=== PATIENT | female | born 1940 | race Caucasian/White ===

== ENCOUNTER 2023-05-24 12:58 | Outpatient (OUT) | payer OTHER, SELFPAY ==
--- NOTE | 2023-05-24 13:06 | XR_ITS ---
[address] [address] Patient Name: AUSTIN GOLDEN MRN: [id number] date: 1940 Sex: F Assigned Patient Location: [facility] Current Patient Location: RAD Accession/Order Number: [id number] Exam Date: 05/24/2023 13:20 Report Date: 05/24/2023 17:19 At the request of: JAZMIN العلي Procedure: XR DEXA axial skeleton EXAMINATION: XR DEXA axial skeleton, 05/24/2023 1:20 PM EDT HISTORY: Menopause Z78.0 COMPARISON: 2016, 2014, 2012, 2008, 2004 TECHNIQUE: Dual-energy X-ray absorptiometry (DEXA) bone density study performed for the axial skeleton. HISTORY: Menopause Z78.0 FINDINGS: Bone mineral density of the AP spine L1-L4 measures 1.2436 g/sq cm. T score 0.5. WHO classification: Normal. Lowest bone mineral density in the right femoral neck measures 0.741 g/sq cm. T score -2.1. WHO classification: Osteopenia XR/XR DEXA axial skeleton IMPRESSION: Osteopenia. Moderate fracture risk Electronically authenticated by: HARDY SERNA Date: 05/24/2023 17:19
== END 2023-05-24 12:59 | disposition home or self-care (01) ==
LOC: RAD 12:58
PROVIDERS: PCP Internal Medicine; Visit Provider Internal Medicine
DX: Z78.0 Asymptomatic menopausal state (principal); M85.88 Other specified disorders of bone density and structure, other site
CPT/HCPCS: 77080

== ENCOUNTER 2023-10-15 09:10 | Outpatient (OUT) | payer OTHER, SELFPAY ==
--- NOTE | 2023-10-15 11:33 | P.CN_ITS ---
Consult Note: HPI Data of Consult Patient: new to practice Consult date: 10/15/23 Requesting Physician: Yesica Astudillo MD Primary Care Provider: Chester Mehta, Consult Narrative Reason for consult: Low back pain, bilateral leg pain Narrative: 83yof who presents for evaluation. Longstanding low back pain with weakness into bilateral legs for many years, now worsening in past several months. Denies provoking event. Currently utilizes [place], which helps mildly. Cannot take NSAIDs because of blood thinner. Has engaged in >6 weeks of provider directed home exercise program, with little benefit. No recent MRI available for review. cc:: CC: Yesica Astudillo MD Review of Systems ROS Status of ROS 10 or more systems reviewed and unremark able except as noted in history and below Exam Narrative Exam Narrative: Psych-alert and oriented x 3. Attentive and appropriate, constitutionally normal, displays normal mood and affect per situation. There are no obvious deficits in memory, reasoning, or intellect.? Skin-no obvious rashes, bruising, erythema noted to the patient's area of pain.? Extremities- extremities are warm with minimal edema and palpable pulses. Lumbar-tenderness to palpation noted in the lumbar spine and paraspinal musculature. Pain is elicited with flexion, extension, and lateral rotation of the lumbar spine. Range of motion is diminished with these motions. Facet loading maneuvers are positive. Strength-noted to be unremarkable with the exception of decreased strength rated at 4 out of 5 in bilateral quadriceps femoris, anterior tibialis. Sensory-no notable sensory deficits in the bilateral lower extremities to touch or pinprick in all dermatomal distributions with the exception to decreased sensation to the bilateral L4, 5 dermatomal distribution Coordination remains intact.? Gait remains non-antalgic. Assessment and Plan Assessment and Plan (1) Lumbar stenosis with neurogenic claudication: (2) Lumbar spondylosis: Plan 83yof who presents for evaluation. Failed conservative measures, as noted. Previously underwent interventional procedures with benefit, but has been several years. Given no advanced imaging recently, coupled with failure to respond to >6 weeks of conservative measures, would like her to undergo lumbar MRI without contrast, as well as XR sacrum. She is in agreement. Medications reviewed. Will continue norco from PCP, i will add flexeril 5mg bid prn. She expressed understanding. Follow up after imaging.
== END 2023-10-15 09:11 | disposition home or self-care (01) ==
PROVIDERS: PCP Internal Medicine; Visit Provider Anesthesiology
DX: M48.08 Spinal stenosis, sacral and sacrococcygeal region (principal); M48.062 Spinal stenosis, lumbar region with neurogenic claudication; M47.816 Spondylosis without myelopathy or radiculopathy, lumbar region
CPT/HCPCS: 72220; G0463

== ENCOUNTER 2023-10-15 11:44 | Outpatient (OUT) | payer OTHER, SELFPAY ==
--- NOTE | 2023-10-15 11:53 | XR_ITS ---
The [address] [address] Patient Name: AUSTIN GOLDEN MRN: [id number] date: 1940 Sex: F Assigned Patient Location: [facility] Current Patient Location: Accession/Order Number: [id number] Exam Date: 10/15/2023 11:58 Report Date: 10/16/2023 07:55 At the request of: ANDRIUS GIEDRAITIS Procedure: XR sacrum coccyx min 2V PROCEDURE: XR sacrum coccyx min 2V COMPARISON: None. HISTORY: Lumbar Sacral Stenosis FINDINGS: SACRUM: No fracture, disruption of the sacral ala line, or cortical irregularity. COCCYX: No fracture or suspicious alignment. SOFT TISSUES: No widening of the sacroiliac joints. No radiopaque foreign body. OTHER: Severe degenerative changes of the visualized lumbar spine with disc collapse with vacuum disc and endplate sclerosis and facet osteoarthropathy. Suspected L5 foraminal stenosis XR/XR sacrum coccyx min 2V IMPRESSION: Severe degenerative changes of the lumbar spine. Consider dedicated lumbar x-rays Electronically authenticated by: HARDY SERNA Date: 10/16/2023 07:55
== END 2023-10-15 11:45 | disposition home or self-care (01) ==
LOC: RAD 11:49
PROVIDERS: PCP Internal Medicine; Visit Provider Anesthesiology
DX: M48.061 Spinal stenosis, lumbar region without neurogenic claudication (principal); M48.08 Spinal stenosis, sacral and sacrococcygeal region
CPT/HCPCS: 72220

== ENCOUNTER 2023-11-28 11:00 | Outpatient (OUT) | payer OTHER, SELFPAY ==
--- NOTE | 2023-11-28 12:17 | PM.CN ---
Consult Note: HPI Data of Consult Patient: known to practice within the last 3 years Consult date: 10/15/23 Requesting Physician: Velvet Jimenez NP Primary Care Provider: Chester Mehta DO Consult Narrative Reason for consult: Low back pain, bilateral leg pain Narrative: 83yof who presents for evaluation. Longstanding low back pain with weakness into bilateral legs for many years, now worsening in past several months. Denies provoking event. Currently utilizes [place], which helps mildly. Cannot take NSAIDs because of blood thinner. Has engaged in >6 weeks of provider directed home exercise program, with little benefit. Most recent MRI showing multilevel DDD, lumbar facet arthropathy, and neuoroforaminal stenosis. cc:: CC: Velvet Jimenez NP Review of Systems ROS Status of ROS 10 or more systems reviewed and unremarkable except as noted in history and below Musculoskeletal Reports: back pain Meds Home Medications and Allergies Home Medications ?Medication ?Instructions ?Recorded ?Confirmed ?Type acetaminophen 325 mg capsule 325 mg PO Q6H PRN pain 10/15/23 10/15/23 History (Tylenol) atorvastatin 40 mg tablet 40 mg PO DAILY 10/15/23 10/15/23 History calcium 600 mg capsule 600 mg PO QDAY 10/15/23 10/15/23 History cholecalciferol (vitamin D3) 125 125 mcg PO DAILY 10/15/23 10/15/23 History mcg (5,000 unit) tablet (Vitamin D3) cyclobenzaprine 5 mg tablet 5 mg PO BID 10/15/23 10/15/23 History diltiazem HCl 120 mg capsule,24 120 mg PO DAILY 10/15/23 10/15/23 History hr,extended release hydrocodone 10 mg-acetaminophen 1 tab PO DAILY PRN pain 10/15/23 10/15/23 History 325 mg tablet rivaroxaban 15 mg tablet (Xarelto) 15 mg PO QPM 10/15/23 10/15/23 History ropinirole 1 mg tablet 1 mg PO .HS 10/15/23 10/15/23 History sotalol 80 mg tablet (Betapace) 80 mg PO BID 10/15/23 10/15/23 History Exam Narrative Exam Narrative: Psych-alert and oriented x 3. Attentive and appropriate, constitutionally normal, displays normal mood and affect per situation. There are no obvious deficits in memory, reasoning, or intellect.? Skin-no obvious rashes, bruising, erythema noted to the patient's area of pain.? Extremities- extremities are warm with minimal edema and palpable pulses. Lumbar-tenderness to palpation noted in the lumbar spine and paraspinal musculature. Pain is elicited with flexion, extension, and lateral rotation of the lumbar spine. Range of motion is diminished with these motions. Facet loading maneuvers are positive. Strength-noted to be unremarkable with the exception of decreased strength rated at 4 out of 5 in bilateral quadriceps femoris, anterior tibialis. Sensory-no notable sensory deficits in the bilateral lower extremities to touch or pinprick in all dermatomal distributions with the exception to decreased sensation to the bilateral L4, 5, l5,S1 dermatomal distribution Coordination remains intact.? Gait remains non-antalgic. Constitutional Documenting provider has reviewed patient's vital signs: yes Common normals: no apparent distress, oriented x3, healthy appearing, alert and well nourished General appearance: cooperative HENMT Common normals: normocephalic, hearing grossly normal bilaterally and moist oral mucous membranes Head and scalp: normocephalic Eye Common normals: PERRL Pupil: PERRL Neck & C-Spine Common normals: full ROM General: normal visual inspection Chest Common normals: inspection of chest normal Respiratory Common normals: normal respiratory effort, no retractions and no use of accessory muscles Neuro Common normals: oriented x3, CN's II-XII intact bilaterally, moves all extremities, no focal motor deficits, no sensory deficits noted and deep tendon reflexes 2+ bilaterally Sensorium/orientation: alert Motor exam: strength 5/5 throughout and no movement abnormalities noted Psych Common normals: mental status grossly normal, thought process normal, cooperative, affect normal, speech normal and activity/motor behavior normal Speech: normal speech Thought process: normal thought process Results Additional Findings Additional findings: If on a controlled substance or opioids, I have checked an [place] report on this patient and there are no aberrancies noted in the prescribing history.??If on a controlled substance or opioid a drug screen was completed and reviewed within the last year, and if there has not been a drug screen completed we ordered one today to monitor higher risk, state monitored pain medication use. As part of providing excellent, safe, comprehensive care, the following was completed at our patient's visit: 1. A medication reconciliation and review to ensure accurate knowledge of current/active medications, including asking our patients to inform us about any [id number] medications or herbal remedies/nutritional supplements/alternative remedies. 2. A review to specifically ensure our patients have had annual screening for screening for depression, screening for tobacco use, and screening for unhealthy alcohol use. For concerning screenings had a discussion with the patient, provided patient education, and recommended follow-up with primary care provider when appropriate. If patient noted with a risk of falling, they received education on strength, gait, and balance training to prevent future risk of falling. Assessment and Plan Assessment and Plan (1) Lumbar stenosis with neurogenic claudication: Assessment and Plan: The patient has had over 3 months of moderate to severe low back pain with functional impairment and inadequate response to conservative care including NSAIDS (unless there are contraindication such as concurrent blood thinners), multiple oral or topical pain medications, and home exercise program/physical therapy.? Patient has completed >6 weeks of guided home exercise program and/or formal physical therapy program without relief of their symptoms.? I have reviewed the imaging of the lumbar spine and no red flags were identified.? The imaging reveals radiographic findings consistent with lumbar DDD, lumbar facet arthropathy, lumbar stenosis with NC We discussed the risks and benefits of the procedure with the patient, and we are NOT planning on using sedation as outlined in the guidelines from Medicare unless there is a documented reason that sedation would be strongly recommended.?? The procedure will be completed with fluoroscopic guidance.? (2) Lumbar spondylosis: (3) Sacroiliitis: Assessment and Plan: consider bilateral SI nerve blocks in the future based on physical exam Plan bilateral L4-5 TFESI under fluoroscopy followed by bilateral L5-S1 TFESI under fluoroscopy for lumbar stenosis with NC, foraminal stenosis noted on MRI, chronic pain unresponsive to PT/HEP and medication regimen continue current medications as tolerated f/u 2 weeks after completion of injections
== END 2023-11-28 11:01 | disposition home or self-care (01) ==
LOC: PM 12-04 09:44
PROVIDERS: PCP Internal Medicine; Visit Provider Nurse Practitioner
DX: M48.062 Spinal stenosis, lumbar region with neurogenic claudication (principal); M47.816 Spondylosis without myelopathy or radiculopathy, lumbar region; M46.1 Sacroiliitis, not elsewhere classified
CPT/HCPCS: G0463

== ENCOUNTER 2023-12-17 07:03 | Day surgery (SDC) | payer OTHER, SELFPAY ==
--- OUTSIDE RECORDS SUMMARY | 2023-12-17 07:08 | XMS_ITS | CCD ---
Author Organization [facility] Care Team Providers Care [employer] Helper Name Role Phone CHESTER العلي Primary Care Unavailable WOO, JELANI Attending Unavailable WOO, JELANI Admitting Unavailable SELF, REFERRED Referring Unavailable [place] Procedure Practitioner Unavailab SANJUANA Maier AM Surgeon Unavailable TANNER HERRERA Surgeon Unavailable [place] Procedure Practitioner Unavailab shant SORIA, JELANI Surgeon Unavailable [place] Procedure Practitioner Unavailab le Chester العلي Unavailable Unavailable Unavailable DO Chester العلي Primary Care Provider MD Debbie Mac Attending Provider John Mims Unavailable [phone] DO Chester العلي Primary Care Provider MD John Mims Attending Provider MD Debbie Mac Attending Provider MD John Mims Referring Provider DO Chester العلي Primary Care Provider MD Debbie Mac Attending Provider DO Chester العلي Primary Care Provider MD Debbie Mac Attending Provider DO Luis Lennon Emergency Provider DO Jay Ceja Admit Provider DO Jay Ceja Attending Provider MD Anival Easton Attending Provider DO Chester العلي Primary Care Provider MD Debbie Mac Attending Provider VINCENT Rolon Emergency Provider DO Jay Ceja Attending Provider ROSA Bennett Other Provider Unavailable DO Javed Dee Other Provider MD Jimena Smith Other Provider MD Christopher Richardson Other Provider MD Debbie Mac Referring Provider MD Kenny Porter Other Provider VIRGINIA Brooke Other Provider MD Bety Haile Other Provider MD Vicente [facility] Other Provider MD Isra Pedro Other Provider Barby [facility] Cristiana Rosen Other Provider MD Yessy Ackerman Other Provider DO Sam Dukes Attending Provider Chester العلي Unavailable DO Chester العلي Primary Care Provider DO Luis Lennon Emergency Provider Unavailab DO Jay Milligan Admit Provider [phone] MD Anival Easton Attending Provider [phone] VINCENT Rolon Emergency Provider [phone] ROSA Bennett Other Provider Unavailable DO Javed Dee Other Provider MD Jimena Smith Other Provider MD Christopher Richardson Other Provider MD Debbie Mca Referring Provider MD Kenny Porter Other Provider VIRGINIA Brooke Other Provider MD Bety Haile Other Provider MD Anoop Zhang Other Provider MD Isra Pedro Other Provider Barby [facility]- Cristiana Rosen Other Provider MD Yessy Ackerman Other Provider [phone] DO Sam Dukes Attending Provider DO Chester العلي Attending Provider Rachel Larios Unavailable DO Wilbur Watson Attending Provider DO Chester العلي Primary Care Provider DO Jay Ceja Admit Provider MD Debbie Mac Attending Provider Tyson, Dr. Chester Sanders Referring Aleshia العلي, Dr. Chester Sanders Primary Care Aleshia Burtonuda, Dr. French Carrillo Attending Un available BALL, DR BRIGGS Primary Care Unavailable MARKER ., DR MCMANUS Admitting Unavailable MARKER ., DR MCMANUS Attending Unavailable MARKER ., DR MCMANUS Consulting Unavailable UNLU, LUCIEN Consulting Unavailable FELICITA, DR Wolf Dyson Admitting Unavailable BALL, DR BRIGGS Primary Care Unavailable FELICITA, DR Wolf Dyson Attending Unavailable FELICITA, DR Wolf Dyson Consulting Unavailable WEST, DR HARDY Pisano Consulting Unavailable BALL, DR BRIGGS Admitting Unavailable BALL, DR BRIGGS Attending Unavailable BALL, DR BRIGGS Consulting Unavailable BALL, DR BRIGGS Primary Care Unavailable MEHTA, MACARENA Consulting Unavailable BALL, DR BRIGGS Admitting Unavailable BALL, DR BRIGGS Primary Care Unavailable BALL, DR BRIGGS Attending Unavailable BALL, DR BRIGGS Consulting Unavailable NEFCY, ARI Consulting Unavailable BALL, DR BRIGGS Admitting Unavailable BALL, DR BRIGGS Attending Unavailable BALL, DR BRIGGS Consulting Unavailable BALL, DR BRIGGS Primary Care Unavailable WEST, DR HARDY Pisano Consulting Unavailable BALL, DR BRIGGS Primary Care Unavailable FELICITA, DR Wolf Dyson Admitting Unavailable FELICITA, DR Wolf Dyson Attending Unavailable FELICITA, DR Wolf Dyson Consulting Unavailable POLICARO, FARRAH Consulting Damien LARIOS, DR RACHEL Hahn Admitting Unavailable BALL, DR BRIGGS Primary Care Unavailable LARIOS, DR RACHEL Hahn Attending Unavailable LARIOS, DR RACHEL Hahn Consulting Unavailable Tyson, DO Briggs Primary Care Provider [phone] DO Wilbur Watson Attending Provider Jose, Dr. Cehn Referring Unavaila ble Traboulmichael, Dr. Chen Attending Unavaila ble Tyson, Dr. Chester Sanders Primary Care Unavai lable Jose, Dr. Chen Referring Unavaila ble Ball, Dr. Chester Sanders Primary Care Yasmeenvai labshant Mac, Dr. Chen Attending Unavaila ble Trabnuria, Dr. Chen Referring Unavaila ble MITCHELL, MD MAXWELL MOSS Attending Unavailabl e Tyson, Dr. Chester Sanders Primary Care Aleshia العلي, Dr. Chester Sanders Primary Care Aleshia Smith, Dr. Jimena Reynolds Attending Yasmeen vailable Smith, Dr. Jimena Reynolds Attending Yasmeen vailable Tyson, Dr. Chester Sanders [facility] Aleshia Smith, Dr. Jimena Reynolds Attending Yasmeen vailaanselmo العلي, Dr. Chester Sanders Primary Care Yasmeenvakrysten العلي, Dr. Chester Sanders Primary Care Yasmeenvai labshant العلي, Dr. Chester Sanders Primary [facility] Yasmeenvai labshant Mac, Dr. Chen Attending Unavaila ble Trabnuria, Dr. Chen Referring Unavaila ble Tyson, Dr. Chester Sanders Primary Care Unavai labshant العلي, Dr. Chester Sanders Primary [facility] Unavai labshant Mac, Dr. Chen Attending Unavaila anselmo العلي, Dr. Chester Sanders Primary Care Aleshia العلي, Dr. Chester Sanders Primary [facility] Yasmeenvai richie Mac, Dr. Chen Attending Unavaila anselmo العلي, Dr. Chester Sanders Primary Care Aleshia العلي, Dr. Chester Sanders Primary [facility] Aleshia Smith, Dr. Jimena Reynolds Attending Yasmeen vailaanselmo العلي, Dr. Chester Sanders Primary [facility] Aleshia Smith, Dr. Jimena Reynolds Attending Yasmeen vailable Ball, Dr. Chester Sanders Primary [facility] Unavai lable Ball, Dr. Chester Sanders [facility] Unavai lable Traboultellyi, Dr. Chen Attending Unavaila ble Ball, Dr. Chester Sanders [facility] Unavai lable Traboulssi, Dr. Chen Attending Unavaila ble Ball, Dr. Chester Sanders [facility] Unavai lable Traboulssi, Dr. Chen Attending Unavaila ble Ball, Dr. Chester Sanders [facility] Unavai lable Traboulssi, Dr. Chen Attending Unavaila ble Ball, Dr. Chester Sanders [facility] Unavai lable Traboulssi, Dr. Chen Attending Unavaila ble Traboulssi, Dr. Chen Referring Unavaila ble Ball, Dr. Chester Sanders [facility] Unavai lable Traboulssi, Dr. Chen Attending Unavaila ble Ball, Dr. Chester Sanders [facility] Unavai lable Traboulssi, Dr. Chen Attending Unavaila ble Traboulssi, Dr. Chen Referring Unavaila ble Traboulssi, Dr. Chen Referring Unavaila ble Ball, Dr. Chester Sanders [facility] Unavai lable Traboulssi, Dr. Chen Attending Unavaila ble Traboulssi, Dr. Chen Referring Unavaila ble Ball, Dr. Chester Sanders [facility] Unavai lable Traboultellyi, Dr. Chen Attending Unavaila ble Ball, DO Chester Primary Care Provider [phone] MD Debbie Mca Attending Provider Chester العلي DO Primary Care Provider Sabina Garcia Unavailable Chester العلي DO Primary Care Provider DEBBIE MAC Referring Unavailable CHESTER العلي Primary Care Unavailable Tyson DO Chester Primary Care Provider MD Debbie Mac Attending Provider Chester العلي DO Primary Care Provider Jose MUIR, Ivyf Unavailable [phone] Yesica Astudillo MD Attending Unavailable DO Tyson Chester Primary Care Provider MD Debbie Mac Attending Provider MD Yesica Astudillo Attending Provider MD Christopher Richardson Attending Provider TRABOULSSI, MOURHAF Attending Unavailable BALL, CHESTER E Primary Care Unavailable TRABOULSSI, MOURHAF Attending Unavailable TRABOULSSI, MOURHAF Referring Unavailable BALL, CHESTER E Primary Care Unavailable TRABOULSSI, MOCHEMOHAF Attending Unavailable TRABOULSSI, MOURHAF Referring Unavailable BALL, CHESTER E Primary Care Unavailable Traboulssi, Mourhaf Admitting Unavailable Ball, Chester Primary Care Unavailable Traboulssi, Moollief Attending Unavailable Traboulssi, Debbie Attending Unavailable Ball, Chester Primary Care Unavailable Traboulssi, Mochemohaf Admitting Unavailable Traboulssi, Ivyf Attending Unavailable Ball, Chester Primary Care Unavailable Traboulssi, Mourhaf Admitting Unavailable Traboulssi, Moollief Attending Unavailable Traboulssi, Mourhaf Admitting Unavailable Ball, Chester Primary Care Unavailable Ball, Chester Primary Care Unavailable Giedraitis, Andrius Admitting Unavailable Giedraitis, Andrius Attending Unavailable Christopher Richardson Attending Unavail able Ball, Chester Primary Care Unavailable Christopher Richardson Admitting Unavail able Traboulssi, Mochemohaf Admitting Unavailable Ball, Chester Primary Care Unavailable Traboulssi, Ivyf Attending Unavailable LafWilbur whaley Admitting Unavailable LaffaWilbur argueta Attending Unavailable Ball, Chester Primary Care Unavailable Lafjudd Wilbur Admitting Unavailable Laffay Wilbur Attending Unavailable Ball, Chester Primary Care Unavailable Allergies Allergy Classification Reported Allergen(s) Allergy Type Date of Onset Reaction(s) Facility (1 source) apixaban Drug Allergy 07-26-20 20 The [facility] Repository (20 sources) Sulfonamides (Antibiotic); Translations: [SULFA (SULFONAMIDE ANTIBIOTICS)] Drug allergy (disorder) 07-29-20 13 Itching [facility] Repository (20 sources) Sulfonamides (Antibiotic); Translations: [Sulfa Drugs] Allergy to drug (finding) -[facility] 250 DO Work Phone: (20 sources) fentaNYL; Translations: [fentanyl] Drug Allergy 08-22-19 22 Other [facility] (20 sources) Sulfonamides (Antibiotic) Propensity to adverse reactions Unknown [facility] [employer] Other (1 source) [facility]enta[facility] Drug Allergy 08-06-20 20 [facility] Repository (1 source) patient allergy list reviewed by nurse or physicia Propensity to adverse reactions 04-15-20 19 Comment:Done [employer] Other (12 sources) Substance with sulfonamide structure and antibacterial mechanism of action (substance) Drug allergy 04-28-20 23 Unknown [facility] [employer] Other (1 source) [facility] Drug Allergy 11-27-19 [facility] Repository (1 source) Sulfonamides (Antibiotic) Drug allergy (disorder) 11-27-19 24 [facility] Repository Medications Current Medications Medication Drug Class(es) Dates Sig (Normalized) Sig (Original) acetaminophen 325 mg / HYDROcodone bitartrate 10 mg oral tablet (20 sources) Opioid Agonist Start: 11-24-2023 take 1 tablet by mouth once daily Hydrocodone-Aceta minophen Active 1 TAB PO Daily November 24, 2023 12:00am Start: 04-05-2022 take 1 tablet by nghia th every twenty-four hours HYDROcodone-Acetaminophen 10-325 MG 1 TABLET Orally DAILY for 30 days Aug, Active Start: 04-21-2021 End: 12-05-2021 Hydrocodone-Acetaminophen Di scontinued 1 TAB PO As Directed April 21, 2021 12:00am December 05, 2021 12:28pm take 1 tablet by nghia th every four to six hours as needed for pain HYDROcodone-Acetaminophen 5-325 MG Oral Tablet TAKE 1 TABLET EVERY 4 TO 6 HOURS NEEDED FOR PAIN. Quantity: 0 Refills: 0 Ordered: 19-Oct-2021 DO Active take 1 tablet by nghia th once daily HYDROcodone-Acetaminophen 5-325 MG Oral Tablet Take 1 tablet daily Quantity: 0 Refills: 0 Ordered: 26-Jul-2021 DO Active ascorbic acid-vitamin E-biotin (Hair, Skin, Nails with Biotin) 7.5-7.5-1,250 mg-unit-mcg tablet,chewable (4 sources) ascorbic acid-vi tamin E-biotin (Hair, Skin, Nails with Biotin) 7.5-7.5-1,250 mg-unit-mcg tablet,chewable Chew 1 tablet once daily. 0 Active atorvastatin 40 mg oral tablet (20 sources) HMG-CoA Reductase Inhibitor Start: End: take 40 mg by mouth once daily at bedtime Atorvastatin Active 40 MG PO Daily at bedtime November 24, 2023 10:05am betamethasone 0.5 mg/ml / clotrimazole 10 mg/ml topical cream (15 sources) Azole Antifungal, Corticosteroid Start: Clotrimazole-Betameth asone Active APPLIC TOPICAL Twice daily November 24, 2023 12:00am APPLY DAILY TO SKIN TO AFFECTED AREA TWICE A DAY FOR 7 DAYS Start: 10-24-2022 Clotrimazole-Bet amethasone 1-0.05 % APPLY DAILY TO SKIN TO AFFECTED AREA TWICE A DAY FOR 7 DAYS for 30 Active calcium carbonate 1500 mg oral tablet (2 sources) take 1 tablet by mouth every twelve hours Calcium 600 MG 1 tablet with meals Orally Twice a day Active cholecalciferol 0.01 mg oral tablet (2 sources) Vitamin D take 2 tablets by mouth every twenty-four hours Vitamin D3 10 MCG (400 UNIT) 2 tablets Orally Once a day Active 24 hr dilTIAZem hydrochloride 120 mg extended release oral capsule (20 sources) Calcium Channel Leland Start: take 120 mg by mouth twice daily Diltiazem Hcl Active 120 MG PO Twice daily February 26, 2023 3:48pm Start: 11-27-2022 End: 02-26-2023 take 120 mg by mouth once daily Diltiazem Hcl Disconti nued 120 MG PO Daily November 27, 2022 12:00am February 26, 2023 3:48pm Start: 06-27-2020 End: 12-14-2020 take 120 mg by mouth once daily Diltiazem Hcl Disconti nued 120 MG PO Daily June 27, 2020 1:00am December 14, 2020 10:44am take 1 tablet by nghia th once daily dilTIAZem HCl - 120 MG Oral Tablet Take 1 tablet daily Quantity: 0 Refills: 0 Ordered: 04-Jan-2023 DO Active escitalopram 10 mg oral tablet (20 sources) Serotonin Reuptake Inhibitor Start: 12-14-2020 take 1 tablet by mouth once daily at bedtime Escitalopram Oxalate (Lexapro) 10 mg tablet Active 10 MG PO Daily at bedtime December 14, 2020 12:00am Lactobacillus acidophilus (20 sources) Start: 06-22-2021 take 1 capsule by mouth once daily Lactobacillus Acidophilus (Acidophilus) Capsule Active 1 CAP PO Daily June 22, 2021 4:33pm Start: 06-22-2021 End: 12-05-2021 take 1 capsule by mouth once daily Lactobacillus Acidophilus (Acidophilus) Capsule Discontinued 1 CAP PO Daily June 21, 2021 11:00pm December 05, 2021 11:29am Start: 06-22-2021 End: 12-05-2021 take 1 capsule by mouth once daily Lactobacillus Acidophilus (Acidophilus) Capsule Discontinued 1 CAP PO Daily June 22, 2021 12:00am December 05, 2021 12:29pm take 1 capsule by mo [facility] once daily Acidophilus Oral Capsule TAKE 1 CAPSULE Daily Quantity: 0 Refills: 0 Ordered: 06-Jun-2021 DO Active multivitamin (Daily Multi-Vitamin) tablet (4 sources) take 1 tablet by mouth once daily multivitamin (Daily Multi-Vitamin) tablet Take 1 tablet by mouth once daily. 0 Active Multivitamin preparation (20 sources) Start: 04-21-2021 take 1 tablet by mouth once daily Multivitamin Active 1 TAB PO Daily April 21, 2021 4:35pm Start: 04-21-2021 End: 11-24-2023 take 1 tablet by mouth once daily in the morning Multivitamin Discontinued 1 TAB PO Every morning April 21, 2021 12:00am November 24, 2023 10:07am Start: 04-21-2021 take 1 tablet by nghia th once daily in the morning Multivitamin Active 1 TAB PO Every morning April 20, 2021 11:00pm Start: 04-21-2021 take 1 tablet by nghia th once daily in the morning Multivitamin Active 1 TAB PO Every morning April 21, 2021 12:00am Start: 04-21-2021 take 1 tablet by nghia th once daily Multivitamin Active 1 TAB PO Daily April 20, 2021 11:00pm Start: 04-21-2021 take 1 tablet by nghia th once daily Multivitamin Active 1 TAB PO Daily April 21, 2021 12:00am Multivitamin Act ginny pyridostigmine bromide 30 mg oral tablet (20 sources) Start: 05-15-2022 take 1 tablet by mouth every twelve hours rivaroxaban 15 mg oral tablet (20 sources) Factor Xa Inhibitor Start: 12-05-2021 take 1 tablet by mouth at bedtime Rivaroxaban (Xarelto) 15 mg tablet Active 15 MG PO Bedtime December 05, 2021 12:00am Start: 03-18-2021 End: 07-03-2021 take 1 tablet by mouth once daily in the evening Rivaroxaban (Xarelto) 15 mg tablet Discontinued 15 MG PO Daily June 22, 2021 4:28pm July 03, 2021 3:41pm IN THE PM Start: 12-14-2020 End: 03-18-2021 take 1 tablet by mouth once daily at bedtime Rivaroxaban (Xarelto) 20 mg tablet Discontinued 20 MG PO Daily at bedtime December 14, 2020 12:00am March 18, 2021 12:03pm rOPINIRole 1 mg oral tablet (20 sources) Nonergot Dopamine Agonist Start: 07-12-2021 take 1 tablet by mouth at bedtime rOPINIRole HCl - 2 MG Oral Tablet TAKE 1 TABLET AT BEDTIME. Quantity: 0 Refills: 0 Ordered: 02-Oct-2021 DO Start : 12-Jul-2021 Active Start: 06-30-2021 End: 11-24-2023 take 1 mg by mouth once daily at bedtime Ropinirole Discontinued 1 MG PO Daily at bedtime June 30, 2021 1:00am November 24, 2023 10:08am Start: 12-16-2020 End: 06-30-2021 take 0.5 mg by mouth once daily at bedtime Ropinirole Discontinued 0.5 MG PO Daily at bedtime December 16, 2020 12:00am June 30, 2021 3:33pm sotalol hydrochloride 80 mg oral tablet (20 sources) Antiarrhythmic Start: 09-25-2022 take 1 tablet by mouth every twelve hours Sotalol HCl 80 MG 1 tablet Orally every 12 hrs Sep, Active Start: 09-21-2022 take 80 mg by mouth twice dominga y Sotalol Active 80 MG PO Twice daily 60 30 September 21, 2022 1:00am Vitamin D3 5000 UNIT (20 sources) Vitamin D3 5000 UNIT as directed Orally Active Completed/Discontinued Medications Medication Drug Class(es) Dates Sig (Normalized) Sig (Original) acetaminophen 325 mg oral tablet (20 sources) Start: 11-20-2022 End: 11-24-2023 take 1 tablet by mouth once Acetaminophen (Tylenol) 325 mg Tablet Discontinued 325 MG PO Once November 20, 2022 12:00am November 24, 2023 10:06am take 1 tablet by nghia th every four to six hours as needed acetaminophen (Tylenol) 500 mg tablet Ta ke 325 mg by mouth. TAKE 1 TABLET EVERY 4 TO 6 HOURS NEEDED. 0 Active take 1 tablet by mouth every six hours Tylenol 8 Hour 650 MG Oral Tablet Extended Release TAKE 1 TABLET Every 6 hours PRN Quantity: 0 Refills: 0 Ordered: 04-Jan-2023 DO Active acetaminophen 325 mg / oxyCODONE hydrochloride 5 mg oral tablet (20 sources) Opioid Agonist Start: 03-05-2023 End: 11-24-2023 take 2 tablets by mouth every six hours Oxycodone-Acetaminophen (Percocet) 5-325 mg tablet Discontinued 2 TAB PO Q6H 30 7 March 05, 2023 November 24, 2023 10:07am Start: 06-25-2020 End: 12-14-2020 take 5-325 tablets by mouth once as needed Oxycodone-Acetaminophen (Percocet) 5-325 mg tablet Discontinued 1 TAB PO Per protocol June 25, 2020 1:00am December 14, 2020 10:44am 5 - 325 tab orally as needed amiodarone hydrochloride 200 mg oral tablet (20 sources) Antiarrhythmic Start: 07-01-2021 End: 12-05-2021 take 200 mg by mouth twice daily Amiodarone Discontinued 200 MG PO Twice daily 60 30 July 01, 2021 1:00am December 05, 2021 12:29pm Start: 04-11-2021 End: 07-03-2021 Amiodarone Discontinued 200 MG PO Daily April 11, 2021 12:00pm July 03, 2021 3:41pm start 04/15 Start: 03-18-2021 End: 04-11-2021 take 200 mg by mouth twice daily Amiodarone Discontinued 200 MG PO Twice daily March 18, 2021 12:00am April 11, 2021 11:54am Start: 12-16-2020 End: 03-18-2021 take 100 mg by mouth once daily Amiodarone Discontinued 100 MG PO Daily December 16, 2020 12:00am March 18, 2021 12:03pm Start: 12-14-2020 End: 12-16-2020 take 200 mg by mouth once daily Amiodarone Discontinued 200 MG PO Daily December 14, 2020 12:00am December 16, 2020 11:25am apixaban 5 mg oral tablet (20 sources) Factor Xa Inhibitor Start: 06-25-2020 End: 12-14-2020 take 1 tablet by mouth twice daily Apixaban (Eliquis) 5 mg tablet Discontinued 5 MG PO Twice daily June 25, 2020 1:00am December 14, 2020 10:44am Biotin (7 sources) Start: 02-26-2023 End: 11-24-2023 take 1 tablet by mouth once daily in the morning Biotin (Hair, Skin And Nails (Biotin)) 10,000 mcg Tablet,Chewable Discontinued 84505 MCG PO Every morning February 26, 2023 12:00am November 24, 2023 10:06am Start: 02-26-2023 take 1 tablet by nghia th once daily in the morning Biotin (Hair, Skin And Nails (Biotin)) 10,000 mcg Tablet,Chewable Active 31101 MCG PO Every morning February 25, 2023 11:00pm Start: 02-26-2023 take 1 tablet by nghia th once daily in the morning Biotin (Hair, Skin And Nails (Biotin)) 10,000 mcg Tablet,Chewable Active 39923 MCG PO Every morning February 26, 2023 12:00am 24 hr buPROPion hydrochloride 300 mg extended release oral tablet (20 sources) Aminoketone Start: 06-25-2020 End: 12-14-2020 take 1 tablet by mouth once daily before breakfast Bupropion Hcl (Wellbutrin Xl) 300 mg tablet extended release 24 hr Discontinued 300 MG PO Daily before breakfast June 25, 2020 1:00am December 14, 2020 10:40am cephalexin 500 mg oral capsule (20 sources) Cephalosporin Antibacterial Start: 09-21-2022 End: 11-20-2022 take 500 mg by mouth twice daily Cephalexin Discontinued 500 MG PO Twice daily 4 2 September 21, 2022 1:00am November 20, 2022 8:18am Start: 07-03-2021 End: 12-05-2021 take 500 mg by mouth twice daily Cephalexin Discontinued 500 MG PO Twice daily 4 2 July 03, 2021 1:00am December 05, 2021 12:12pm dexamethasone 6 mg oral tablet (20 sources) Corticosteroid Start: 06-27-2020 End: 12-14-2020 take 6 mg by mouth once daily Dexamethasone Discontinued 6 MG PO Daily June 27, 2020 1:00am December 14, 2020 10:40am furosemide 40 mg oral tablet (20 sources) Loop Diuretic Start: 03-18-2021 End: 09-01-2022 Furosemide Discontinued 40 MG PO Daily 0 July 03, 2021 3:40pm September 01, 2022 1:50pm 40 mg orally IF WEIGHT OVER 140 LB THEN TWICE A DAILY Start: 12-14-2020 End: 03-18-2021 Furosemide (Lasix) 40 mg tab let Discontinued 20 MG PO Daily December 14, 2020 10:49am March 18, 2021 12:03pm Start: 06-27-2020 End: 12-14-2020 take 1 tablet by mouth once daily Furosemide (Lasix) 40 mg tablet Discontinued 40 MG PO Daily June 27, 2020 1:00am December 14, 2020 10:51am Ginkgo-Choline Bitartrate (Jolancertron Memory Support) 120 mg- 110 mg Tablet (7 sources) Start: 02-26-2023 End: 11-24-2023 take 1 tablet by mouth once daily in the morning Ginkgo-Choline Bitartrate (Brainstrong Memory Support) 120 mg- 110 mg Tablet Discontinued 1 TAB PO Every morning February 26, 2023 12:00am November 24, 2023 10:07am Start: 02-26-2023 take 1 tablet by nghia th once daily in the morning Ginkgo-Choline Bitartrate ([facility] Memory Support) 120 mg- 110 mg Tablet Active 1 TAB PO Every morning February 25, 2023 11:00pm Start: 02-26-2023 take 1 tablet by nghia th once daily in the morning Ginkgo-Choline Bitartrate ([facility] Memory Support) 120 mg- 110 mg Tablet Active 1 TAB PO Every morning February 26, 2023 12:00am Hair Skin & Nails Gummies CHEW (11 sources) Hair Skin & Nail s Gummies CHEW Take 1 tablet daily Quantity: 0 Refills: 0 Ordered: 10-Mar-2022 DO Active hydroCHLOROthiazide 12.5 mg oral tablet (20 sources) Thiazide Diuretic Start: 2020 End: 2020 take 12.5 mg by mouth once daily Hydrochlorothiazide Discontinued 12.5 MG PO Daily at 0800 30 December 16, 2020 12:00am March 15, 2021 5:53pm hyoscyamine sulfate 0.125 mg sublingual tablet (20 sources) Start: 2021 take 1 tablet under the tongue before mealtime Hyoscyamine Sulfate 0.125 MG Sublingual Tablet Sublingual DISSOLVE 1 TABLET UNDER TONGUE BEFORE MEAL Quantity: 50 Refills: 0 Ordered: 05-Apr-2022 DO Start : 09-Jan-2022 Complete lisinopril 5 mg oral tablet (20 sources) Angiotensin Converting Enzyme Inhibitor Start: 04-21-2021 End: 07-03-2021 take 5 mg by mouth twice daily Lisinopril Discontinued 5 MG PO Twice daily April 21, 2021 4:38pm July 03, 2021 3:41pm Start: 04-11-2021 End: 04-21-2021 take 5 mg by mouth once daily Lisinopril Discontinued 5 MG PO Daily 60 April 11, 2021 9:48am April 21, 2021 4:38pm Start: 12-16-2020 End: 04-11-2021 take 10 mg by mouth once daily Lisinopril Discontinued 10 MG PO Daily 60 December 16, 2020 12:00am April 11, 2021 9:53am metoprolol tartrate 100 mg oral tablet (20 sources) beta-Adrenergic Leland Start: 09-06-2022 Metopr olol Tartrate 100 MG Oral Tablet Quantity: 60 Refills: 0 Ordered: 06-Sep-2022 DO Start : 06-Sep-2022 Complete Start: 09-06-2022 End: 09-21-2022 take 100 mg by mouth twice daily Metoprolol Tartrate Discontinued 100 MG PO Twice daily 60 September 06, 2022 1:00am September 21, 2022 4:48pm Start: 09-01-2022 End: 09-06-2022 take 75 mg by mouth twice daily Metoprolol Tartrate Di scontinued 75 MG PO Twice daily September 01, 2022 1:50pm September 06, 2022 11:58am Start: 08-25-2022 take 1 tablet by nghia th twice daily Metoprolol Tartrate 75 MG Oral Tablet Take 1 tablet twice daily Quantity: 180 Refills: 3 Ordered: 25-Aug-2022 Debbie Mac MD Start : 25-Aug-2022 Active dose increase Start: 07-01-2021 End: 09-01-2022 take 50 mg by mouth twice daily Metoprolol Tartrate Di scontinued 50 MG PO Twice daily 60 July 01, 2021 1:00am September 01, 2022 1:51pm Start: 06-30-2021 End: 07-03-2021 take 25 mg by mouth twice daily Metoprolol Succinate Discontinued 25 MG PO Twice daily June 30, 2021 1:00am July 03, 2021 3:41pm Start: 06-25-2020 End: 12-14-2020 take 1 tablet by mouth once daily in the morning Metoprolol Succinate (Toprol Xl) 100 mg tablet extended release 24 hr Discontinued 100 MG PO Every morning June 25, 2020 1:00am December 14, 2020 10:44am End: 05-31-2023 take 1 tablet by mouth every twelve hours metoprolol tartrate (Lopressor) 50 mg tablet Take 1 tablet by mouth every 12 hours. 0 05/31/2023 Discontinued (Therapy completed) take 1 tablet by nghia th twice daily Metoprolol Tartrate 25 MG Oral Tablet TAKE 1 TABLET TWICE DAILY. Quantity: 180 Refills: 3 Ordered: 06-Jun-2021 DO Active Multi Vitamin TABS (20 sources) Multi Vitamin TA BS TAKE 1 TABLET DAILY. Quantity: 0 Refills: 0 Ordered: 10-Mar-2022 DO Active Multi Vitamin TA BS TAKE 1 TABLET DAILY. Quantity: 0 Refills: 0 Ordered: 06-Jun-2021 DO Active ofloxacin 3 mg/ml ophthalmic solution (4 sources) Quinolone Antimicrobial Start: 02-17-2022 take 1 drop(s) into the eye(s) four times daily Ofloxacin 0.3 % Ophthalmic Solution INSTILL 1 DROP INTO RIGHT EYE 4 TIMES A DAY DIRECTED Quantity: 5 Refills: 0 Ordered: 17-Feb-2022 DO Start : 17-Feb-2022 Complete prednisoLONE acetate 10 mg/ml ophthalmic suspension (4 sources) Corticosteroid Start: 02-17-2022 take 1 drop(s) into the eye(s) four times daily prednisoLONE Acetate 1 % Ophthalmic Suspension INSTILL 1 DROP INTO RIGHT EYE 4 TIMES A DAY DIRECTED Quantity: 5 Refills: 0 Ordered: 17-Feb-2022 DO Start : 17-Feb-2022 Complete spironolactone 25 mg oral tablet (19 sources) Aldosterone Antagonist Start: 09-06-2022 Spironolactone 25 MG Oral Tablet Quantity: 15 Refills: 0 Ordered: 06-Sep-2022 DO Start : 06-Sep-2022 Complete Start: 09-06-2022 End: 11-20-2022 take 12.5 mg by mouth once daily Spironolactone Discontinued 12.5 MG PO Daily September 06, 2022 1:00am November 20, 2022 8:18am triamcinolone acetonide 5 mg/ml topical cream (20 sources) Corticosteroid Start: 05-01-2022 Triamcinolone Acetonide 0.5 % External Cream APPLY TO AFFECTED AREA TWICE A DAY Quantity: 45 Refills: 0 Ordered: 01-May-2022 DO Start : 01-May-2022 Complete Problems Active Problems Problem Classification Problem Date Documented Date Episodic/Chronic Acute and unspecified renal failure (20 sources) Injury of kidney; Translations: [Acute kidney failure, unspecified] 04-21-2021 Episodic Biliary tract disease (20 sources) Biliary calculus; Translations: [Calculus of gallbladder without cholecystitis without obstruction] Onset: 2 Resolved: 2 06-27-2021 Episodic Cardiac dysrhythmias (20 sources) Persistent atrial fibrillation; Translations: [Atrial fibrillation] Onset: 3 06-23-2021 Chronic Chronic kidney disease (20 sources) Chronic kidney disease stage 3A ; Translations: [Chronic kidney disease, Stage III (moderate)] Onset: 3 05-31-2023 Chronic Chronic kidney disease (4 sources) Chronic kidney disease; Translations: [Chronic kidney disease, stage 3a (CMS/HCC)] Onset: 3 Conduction disorders (20 sources) Cardiac pacemaker in situ; Translations: [Cardiac pacemaker in situ] Onset: 3 06-29-2021 Chronic Congestive heart failure; nonhypertensive (20 sources) Diastolic heart failure; Translations: [Diastolic heart failure, unspecified] Onset: 2 07-01-2021 Chronic Coronary atherosclerosis and other heart disease (15 sources) Single coronary vessel disease; Translations: [Coronary atherosclerosis of unspecified type of vessel, hamilton or graft] Onset: 3 04-28-2023 Chronic Deficiency and other anemia (20 sources) Iron deficiency anemia; Translations: [Iron deficiency anemia, unspecified] Onset: 7 Resolved: 1 12-16-2020 Episodic Disorders of lipid metabolism (20 sources) Hyperlipidemia; Translations: [Other and unspecified hyperlipidemia] Onset: 3 06-23-2021 Chronic Esophageal disorders (20 sources) Esophageal obstruction; Translations: [Esophagogastric junction outflow obstruction] Onset: 2 Resolved: 2 Chronic Essential hypertension (20 sources) Benign essential hypertension; Translations: [Benign essential hypertension] Onset: 3 12-15-2020 Chronic Genitourinary symptoms and ill-defined conditions (20 sources) Urinary incontinence; Translations: [Unspecified urinary incontinence] Onset: 6 11-24-2023 Chronic Genitourinary symptoms and ill-defined conditions (20 sources) Asymptomatic bacteriuria; Translations: [Bacteriuria] 12-16-2020 Episodic Hypertension with complications and secondary hypertension (5 sources) Hypertensive chronic kidney disease with stage 1 through stage 4 chronic kidney disease, or unspecified chronic kidney disease; Translations: [Malignant hypertensive chronic kidney disease] Onset: 2 Chronic Immunizations and screening for infectious disease (1 source) Vaccination given; Translations: [Encounter for immunization] Episodic Malaise and fatigue (20 sources) Asthenia; Translations: [Weakness] Onset: 4 04-21-2021 Episodic Menopausal disorders (1 source) Primary ovarian failure; Translations: [Other primary ovarian failure] Onset: 7 Chronic Mood disorders (20 sources) Recurrent major depression; Translations: [Major depressive disorder, recurrent] Onset: 5 Chronic Nausea and vomiting (20 sources) Vomiting; Translations: [Vomiting, unspecified] Onset: 5 Resolved: 2 06-27-2021 Episodic Nonspecific chest pain (20 sources) Chest pain; Translations: [Chest pain, unspecified] Onset: 4 04-21-2021 Episodic Nutritional deficiencies (1 source) Vitamin D deficiency; Translations: [Vitamin D deficiency, unspecified] Onset: 7 Chronic Osteoarthritis (20 sources) Arthritis of left knee; Translations: [Unilateral primary osteoarthritis, left knee] Onset: 5 Chronic Osteoporosis (1 source) Primary osteoporosis; Translations: [Age-related osteoporosis without current pathological fracture] Chronic Other aftercare (20 sources) Drug therapy finding; Translations: [Long-term (current) use of anticoagulants] Onset: 3 06-23-2021 Episodic Other aftercare (1 source) Long-term current use of drug therapy; Translations: [Other terminal operations manager (current) drug therapy] Episodic Other aftercare (1 source) High risk drug monitoring status; Translations: [penitentiary (current) use of opiate analgesic] Episodic Other aftercare (1 source) Other terminal operations manager (current) drug therapy Episodic Other and ill-defined heart disease (15 sources) Left ventricular systolic dysfunction; Translations: [Other ill-defined heart diseases] 09-03-2022 Chronic Other and ill-defined heart disease (12 sources) Other ill-defined heart diseases; Translations: [Heart disease, unspecified] 09-06-2022 Chronic Other and unspecified benign neoplasm (1 source) Benign neoplasm of meninges; Translations: [Benign neoplasm of meninges, unspecified] Chronic Other and unspecified benign neoplasm (1 source) Benign neoplasm of cerebral meninges; Translations: [Benign neoplasm of cerebral meninges] Onset: 0 Chronic Other bone disease and musculoskeletal deformities (19 sources) Other specified disorders of bone density and structure, other site; Translations: [Osteopenia of lumbar spine] Episodic Other bone disease and musculoskeletal deformities (1 source) Disorder of bone; Translations: [Other specified disorders of bone density and structure, other site] Episodic Other bone disease and musculoskeletal deformities (1 source) Osteopenia; Translations: [Other specified disorders of bone density and structure, other site] 11-24-2023 Episodic Other circulatory disease (20 sources) Low blood pressure; Translations: [Hypotension, unspecified] 06-27-2021 Episodic Other connective tissue disease (4 sources) Fibromyalgia; Translations: [Fibromyalgia] 11-24-2023 Episodic Other diseases of kidney and ureters (13 sources) Hydronephrosis; Translations: [Hydronephrosis with renal and ureteral calculous obstruction] 06-28-2021 Episodic Other diseases of kidney and ureters (7 sources) Hydronephrosis with renal and ureteral calculous obstruction; Translations: [Hydronephrosis with urinary obstruction due to ureteral calculus] 06-28-2021 Episodic Other diseases of kidney and ureters (1 source) Hydronephrosis with renal and ureteral calculous obstruction; Translations: [Hydronephrosis with renal and ureteral calculous obstruction] Episodic Other gastrointestinal disorders (1 source) Intestinal malabsorption; Translations: [Other specified intestinal malabsorption] Onset: 6 Chronic Other gastrointestinal disorders (20 sources) Dysphagia; Translations: [Dysphagia, unspecified] Onset: 5 12-05-2021 Episodic Other gastrointestinal disorders (9 sources) Dysphagia, unspecified; Translations: [Dysphagia, unspecified] Onset: 2 Resolved: 2 Episodic Other gastrointestinal disorders (19 sources) History of stricture of esophagus; Translations: [Personal history of other diseases of the digestive system] Episodic Other gastrointestinal disorders (20 sources) Pharyngeal dysphagia; Translations: [Dysphagia, pharyngoesophageal phase] Episodic Other hereditary and degenerative nervous system conditions (20 sources) Restless legs; Translations: [Restless legs syndrome] Chronic Other hereditary and degenerative nervous system conditions (1 source) Restless legs syndrome Chronic Other hereditary and degenerative nervous system conditions (1 source) Mild cognitive disorder ; Translations: [Mild cognitive impairment, so stated] Onset: 5 Chronic Other inflammatory condition of skin (20 sources) Intertrigo; Translations: [Erythema intertrigo] Episodic Other inflammatory condition of skin (1 source) Erythema intertrigo Episodic Other injuries and conditions due to external causes (20 sources) Minor head injury; Translations: [Unspecified injury of head, initial encounter] 07-11-2021 Episodic Other injuries and conditions due to external causes (20 sources) Abrasion; Translations: [Other injury of unspecified body region, initial encounter] 07-11-2021 Episodic Other injuries and conditions due to external causes (1 source) History of fall; Translations: [History of falling] Episodic Other liver diseases (20 sources) Unspecified cirrhosis of liver; Translations: [Cirrhotic] Onset: 2 Resolved: 2 Chronic Other liver diseases (2 sources) Cirrhosis of liver; Translations: [Unspecified cirrhosis of liver] 11-24-2023 Chronic Other lower respiratory disease (16 sources) Dyspnea on exertion; Translations: [Other forms of dyspnea] 09-01-2022 Episodic Other lower respiratory disease (13 sources) Other forms of dyspnea; Translations: [Other respiratory abnormalities] 09-01-2022 Episodic Other lower respiratory disease (20 sources) Nodule of lung; Translations: [Solitary pulmonary nodule] 11-24-2023 Episodic Other lower respiratory disease (2 sources) Solitary pulmonary nodule Episodic Other lower respiratory disease (1 source) Solitary nodule of lung; Translations: [Solitary pulmonary nodule] Episodic Other lower respiratory disease (1 source) Shortness of breath Episodic Other nervous system disorders (1 source) Carpal tunnel syndrome; Translations: [Carpal tunnel syndrome, right upper limb] Onset: 5 Chronic Other nervous system disorders (19 sources) Other symptoms and signs involving cognitive functions and awareness; Translations: [Decreased responsiveness] Episodic Other nervous system disorders (1 source) Impaired cognition; Translations: [Other symptoms and signs involving cognitive functions and awareness] Episodic Other nutritional; endocrine; and metabolic disorders (20 sources) Obesity; Translations: [Obesity, unspecified] Onset: 3 04-28-2023 Chronic Other nutritional; endocrine; and metabolic disorders (1 source) Obesity caused by energy imbalance; Translations: [Other obesity due to excess calories] 05-31-2023 Chronic Other nutritional; endocrine; and metabolic disorders (2 sources) Other obesity due to excess calories; Translations: [Other obesity due to excess calories] Onset: 3 Chronic Other nutritional; endocrine; and metabolic disorders (2 sources) Body mass index (BMI) 32.0-32.9, adult; Translations: [Body mass index (BMI) 32.0-32.9, adult] Onset: 3 Chronic Other nutritional; endocrine; and metabolic disorders (3 sources) Overweight in adulthood with body mass index of 25 or more but less than 30; Translations: [Overweight] Episodic Other screening for suspected conditions (not mental disorders or infectious disease) (20 sources) CT of abdomen abnormal; Translations: [Abnormal findings on diagnostic imaging of other abdominal regions, including retroperitoneum] Onset: 8 06-27-2021 Episodic Residual codes; unclassified (20 sources) Obstructive sleep apnea syndrome; Translations: [Obstructive sleep apnea (adult) (pediatric)] Onset: 6 11-24-2023 Chronic Residual codes; unclassified (2 sources) Obstructive sleep apnea (adult) (pediatric); Translations: [Obstructive sleep apnea (adult)(pediatric)] Chronic Residual codes; unclassified (1 source) Hypersomnia; Translations: [Hypersomnia, unspecified] Chronic Residual codes; unclassified (1 source) Family history of malignant neoplasm of other organs or systems; Translations: [FAM HX MALIG NEOPLASM OTH ORGN/SYS] Onset: 3 Episodic Residual codes; unclassified (1 source) Asymptomatic menopausal state Episodic Residual codes; unclassified (2 sources) Other specified health status; Translations: [Other specified health status] Onset: 3 Episodic Spondylosis; intervertebral disc disorders; other back problems (20 sources) Lumbar spondylosis; Translations: [Spondylosis without myelopathy or radiculopathy, lumbar region] Onset: 9 11-24-2023 Chronic Spondylosis; intervertebral disc disorders; other back problems (2 sources) Low back pain; Translations: [Low back pain, unspecified] Onset: 9 Episodic Syncope (19 sources) Syncope; Translations: [Syncope and collapse] 09-17-2022 Episodic Transient cerebral ischemia (1 source) Transient global amnesia; 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] Onset: 4 Chronic Unclassified (6 sources) Other persistent atrial fibrillation; Translations: [Other persistent atrial fibrillation] Onset: 3 Unclassified (3 sources) CONTACT W/AND (SUSP) EXPOS COVID-19; Translations: [CONTACT W/AND (SUSP) EXPOS COVID-19] Onset: 2 Unclassified (1 source) Elevation of levels of liver transaminase levels; Translations: [Elevation of levels of liver transaminase levels] Unclassified (1 source) Encounter for checking and testing of cardiac pacemaker pulse generator [battery]; Translations: [Encounter for checking and testing of cardiac pacemaker pulse generator [battery]] Onset: 3 Unclassified (1 source) Encounter for preprocedural laboratory examination; Translations: [Encounter for preprocedural laboratory examination] Onset: 3 Urinary tract infections (20 sources) Escherichia coli urinary tract infection; Translations: [Urinary tract infection, site not specified] Resolved: 1 06-29-2021 Episodic Viral infection (20 sources) Disease caused by 2019-nCoV; Translations: [COVID-19] 06-27-2020 Episodic Past or Other Problems Problem Classification Problem Date Documented Da te Episodic/Chronic Abdominal hernia (20 sources) Diaphragmatic hernia without obstruction or gangrene; Translations: [Paraesophageal hernia] Onset: 02-28-2022 Resolved: 02-28-2022 Episodic Abdominal pain (20 sources) Right upper quadrant pain; Translations: [Right upper quadrant pain] Onset: 05-20-2015 Resolved: 11-15-2021 06-27-2021 Episodic Allergic reactions (2 sources) Contact dermatitis; Translations: [Contact dermatitis and other eczema, due to unspecified cause] Onset: 02-16-2015 Resolved: 2020 Episodic Cardiac dysrhythmias (20 sources) Sinus bradycardia; Translations: [Other specified cardiac dysrhythmias] Onset: 10-12-2016 06-23-2021 Episodic E Codes: Adverse effects of medical drugs (1 source) Anticoagulant adverse reaction; Translations: [Adverse effect of anticoagulants, initial encounter] Resolved: 2020 Episodic E Codes: Natural/environment (1 source) Nonvenomous insect bite; Translations: [Bitten or stung by nonvenomous insect and other nonvenomous arthropods, initial encounter] Resolved: 04-04-2022 Episodic Other aftercare (7 sources) penitentiary (current) use of anticoagulants; Translations: [Long-term (current) use of anticoagulants] Onset: 04-28-2023 09-21-2022 Episodic Other aftercare (4 sources) Taking high risk medication; Translations: [Other terminal operations manager (current) drug therapy] Onset: 04-28-2023 04-28-2023 Episodic Other circulatory disease (1 source) H/O: cardiovascular disease; Translations: [Personal history of other diseases of the circulatory system] Resolved: 01-20-2020 Episodic Other connective tissue disease (1 source) Myalgia/myositis - multiple; Translations: [Unspecified myalgia and myositis] Onset: 03-05-2015 Episodic Other connective tissue disease (1 source) Disorder of musculoskeletal system; Translations: [Other symptoms and signs involving the musculoskeletal system] Onset: 09-13-2018 Episodic Other diseases of kidney and ureters (2 sources) Cyst of kidney, acquired; Translations: [CYST OF KIDNEY ACQUIRED] Onset: 01-28-2022 Episodic Other diseases of kidney and ureters (1 source) Acquired renal cystic disease; Translations: [Cyst of kidney, acquired] Onset: 02-07-2022 Episodic Other female genital disorders (1 source) Noninflammatory disorder of the vagina; Translations: [Other specified noninflammatory disorders of vagina] Resolved: 2020 Episodic Other gastrointestinal disorders (1 source) Digestive symptom; Translations: [Other symptoms involving digestive system] Onset: 06-03-2015 Episodic Other gastrointestinal disorders (1 source) Constipation; Translations: [Constipation, unspecified] Onset: 03-04-2019 Episodic Other lower respiratory disease (20 sources) Dyspnea; Translations: [Other respiratory abnormalities] Onset: 07-14-2014 05-31-2023 Episodic Other lower respiratory disease (4 sources) Dyspnea, unspecified; Translations: [Dyspnea, unspecified] Onset: 04-28-2023 Episodic Other lower respiratory disease (1 source) Shortness of breath; Translations: [Shortness of breath] Onset: 01-09-2023 Episodic Other nervous system disorders (1 source) Chronic pain syndrome; Translations: [Chronic pain syndrome] Resolved: 10-17-2020 Chronic Other nervous system disorders (1 source) Abnormal involuntary movement; Translations: [Abnormal involuntary movements] Onset: 08-10-2016 Episodic Other non-traumatic joint disorders (1 source) Joint pain; Translations: [Pain in unspecified joint] Onset: 03-05-2015 Episodic Other nutritional; endocrine; and metabolic disorders (11 sources) Body mass index 25-29 - overweight; Translations: [Body Mass Index 26.0-26.9, adult] Onset: 01-18-2016 Episodic Other nutritional; endocrine; and metabolic disorders (10 sources) Overweight; Translations: [Overweight] Onset: 01-18-2016 Episodic Residual codes; unclassified (8 sources) H/O: respiratory disease; Translations: [Personal history of other diseases of respiratory system] Resolved: 01-04-2023 Episodic Residual codes; unclassified (1 source) Requires influenza virus vaccination; Translations: [Need for prophylactic vaccination and inoculation, Influenza] Onset: 06-12-2018 Episodic Residual codes; unclassified (4 sources) Never smoked any substance; Translations: [Other specified health status] Onset: 04-28-2023 04-28-2023 Episodic Unclassified (20 sources) Never smoked tobacco; Translations: [Never a smoker] Unclassified (19 sources) Elevated transaminase level; Translations: [Elevated transaminase level] Unclassified (1 source) CONTACT W/AND (SUSP) EXPOS COVID-19; Translations: [CONTACT W/AND (SUSP) EXPOS COVID-19] Onset: 04-20-2022 Unclassified (4 sources) Onset: 05-31-2023 Resolved: 09-19-2023 05-31-2023 Viral infection (1 source) Disease caused by 2019-nCoV; Translations: [COVID-19] Resolved: 2020 Results Test Name Value Interpretation Reference Range Facility MR lumbar spine wo roselia MR lumbar spine wo con [facility] Main [address] [address] MRI Report Signed Patient: Lesa Golden MR#: [id number] 8 : 1940 Acct:[id number] Age/Sex: 83 / F ADM Date: 11/21/23 Loc: MR Room: Type: [facility] Attending Dr: Yesica Astudillo MD Copies to: Yesica Astudillo MD Ordering Provider: Yesica Astudillo MD Date of Service: 11/21/23 MR/MR lumbar spine wo con: LUMBAR STENOSIS MRI Lumbar Spine withoutcontrast TECHNIQUE: Multiplanar T1 and T2-weighted imaging of lumbar spine obtained without contrast. HISTORY: Chronic back pain for multiple years COMPARISON: None The last fully segmented vertebral pair is operationally defined as L5/S1. POST SURGERY CHANGES: None BONE MARROW INFILTRATION: None BONE MARROW EDEMA: None BONY ALIGNMENT: Adequate bony alignment identified. SPINAL CANAL: As below LUMBAR FRACTURE: None BONY LESIONS: None KIDNEYS: No hydronephrosis is identified. AORTA: No aortic aneurysm is seen. CONUS MEDULLARIS : The distal spinal cord is in adequate position without abnormality. Additional findings CONJOINED NERVE ROOT: None Lower thoracic level: Spondylosis and degenerative endplate changes and mild listhesis. Patent central canal. L1-2 :Mild spondylosis. Patent central canal. Posterior element hypertrophy. Patent neural foramen L2-3: Mild spondylosis. Diffuse disc bulge. Mild central canal stenosis. Posterior element hypertrophy. Mild bilateral neural foraminal narrowing greater on the left. L3-4: Moderate spondylosis. Mild anterolisthesis. Diffuse disc bulge and left parasagittal disc protrusion. Mild central canal stenosis. Posterior element hypertrophy. Moderate bilateral neural foraminal narrowing L4-5: Moderate spondylosis and degenerative endplate changes. Mild anterolisthesis. Midline disc protrusion with concavity intrathecal sac. Mild central canal stenosis. Posterior element hypertrophy. Marked right and moderate left neural foraminal narrowing L5-S1: Extensive spondylosis and degenerative endplate changes. Diffuse disc bulge. Mild central canal stenosis. Posterior element hypertrophy. Marked facet diastases. To moderate bilateral neural foraminal narrowing. MR/MR lumbar spine wo con IMPRESSION: Multilevel discovertebral degenerative changes. Mild degenerative listhesis in supine position. Central canal stenosis or neural foraminal narrowing as above. Pre-MRI plain film assessment: None Impression dictated by: Juanito Borja M.D.11/21/2023 5:55 PM Dictation Location: [place] [address] Transcribed By: [facility] 11/21/23 [id number] Dictated By: Juanito Borja DO 11/21/23 1750 Signed By: 11/21/23 1755 Normal [facility] ECG 12 [place] 09-19-2023 Rhythm appeared to b e atrial flutter with 2/ 1 AV block with nonspecific ST-T changes CPACS [facility] Work Phone: US Heart Transthoracicon Aortic Valve Area by Continuity of Peak Velocity 2.36 [facility] Work Phone: Aortic Valve Area by Continuity of VTI 2.33 [facility] Work Phone: AV mn grad 2.0 [facility] Work Phone: AV pk grad 3.5 [facility] Work Phone: AV pk douglas 0.94 [facility] Work Phone: LV A4C EF 63.6 [facility] Work Phone: LVIDd 3.20 [facility] Work Phone: LVOT diam 1.90 [facility] Work Phone: MV avg E/e' ratio 20.20 [facility] Work Phone: RVSP 32.8 [facility] Work Phone: [address], [address] [place] [address] TRANSTHORACIC ECHOCARDIOGRAM REPORT Patient Name: LESA Arriaga Physician: Zurdo Mac MD Study Date: 08/21/2023 Ordering Provider: Zurdo MAC MRN/PID: [id number] Fellow: Nurse: Date of /Age: 1 1940 / 82 years Chief School Finance Officer: Iqra Pham RDCS, RVT Gender: F Additional Staff: Height: 149.86 cm Admit Date: Weight: 74.84 kg Admission Status: BSA: 1.70 m2 Department Location: [place] [facility] Pressure: 116 /64 mmHg Study Type: TRANSTHORACIC ECHO (TTE) COMPLETE Diagnosis/ICD: Chronic diastolic (congestive) heart failure (CHF)-I50.32; Essential (primary) hypertension-I10; Dyspnea, unspecified-R06.00 Indication: Atrial Fibrillation, Sick Sinus Syndrome, Hyerlipidemia, Pacemaker, Overweight, CKD-Stage III CPT Codes: Echo Complete w Full Doppler-14152 Study Detail: The following Echo studies were performed: 2D, M-Mode, Doppler and color flow. PHYSICIAN INTERPRETATION: Left Ventricle: Left ventricular systolic function is normal, with an estimated ejection fraction of 55-60%. There are no regional wall motion abnormalities. The left ventricular cavity size is normal. Spectral Doppler shows a normal pattern of left ventricular diastolic filling. Septal motion consistent with pacemaker activation. Left Atrium: The left atrium is mild to moderately dilated. Right Ventricle: The right ventricle is normal in size. There is normal right ventricular global systolic function. Right Atrium: The right atrium is mildly dilated. Mildly dilated right atrium. Aortic Valve: The aortic valve appears structurally normal. There is no evidence of aortic valve regurgitation. The peak instantaneous gradient of the aortic valve is 3.5 mmHg. The mean gradient of the aortic valve is 2.0 mmHg. Mitral Valve: The mitral valve is normal in structure. There is mild to moderate mitral valve regurgitation. Tricuspid Valve: The tricuspid valve is structurally normal. There is mild tricuspid regurgitation. The Doppler estimated RVSP is mildly elevated at 32.8 mmHg. Pulmonic Valve: The pulmonic valve is structurally normal. There is no indication of pulmonic valve regurgitation. Pericardium: There is no pericardial effusion noted. Aorta: The aortic root is normal. Additional Comments: When compared to previous study LV systolic function has improved. CONCLUSIONS: 1. Left ventricular systolic function is normal with a 55-60% estimated ejection fraction. 2. Septal motion consistent with pacemaker activation. 3. The left atrium is mild to moderately dilated. 4. Mildly dilated right atrium. 5. Mild to moderate mitral valve regurgitation. 6. Mildly elevated RVSP. 7. Right ventricular pacer lead was seen. 8. When compared to previous study LV systolic function has improved. QUANTITATIVE DATA SUMMARY: 2D MEASUREMENTS: Normal Ranges: Ao Root d: 2.60 cm (2.0-3.7cm) LAs: 4.00 cm (2.7-4.0cm) RVIDd: 2.70 cm (0.9-3.6cm) IVSd: 1.10 cm (0.6-1.1cm) LVPWd: 0.90 cm (0.6-1.1cm) LVIDd: 3.20 cm (3.9-5.9cm) LVIDs: 2.60 cm LV Mass Index: 53.2 g/m2 LV % FS 18.8 % LV SYSTOLIC FUNCTION BY 2D PLANIMETRY (MOD): Normal Ranges: EF-A4C View: 63.6 % (>=55%) LV DIASTOLIC FUNCTION: Normal Ranges: MV Peak E: 1.48 m/s (0.7-1.2 m/s) MV lateral e' 0.07 m/s MV medial e' 0.05 m/s E/e' Ratio: 20.20 (<8.0) MITRAL VALVE: Normal Ranges: MV Vmax: 1.56 m/s (<=1.3m/s) MV peak P.7 mmHg (<5mmHg) MV mean P.0 mmHg (<48mmHg) MITRAL INSUFFICIENCY: Normal Ranges: MR Vmax: 434.00 cm/s dP/dt: 826 mmHg/s (>1200mmHg/sec) AORTIC VALVE: Normal Ranges: AoV Vmax: 0.94 m/s (<=1.7m/s) AoV Peak P.5 mmHg (<20mmHg) AoV Mean P.0 mmHg (1.7-11.5mmHg) LVOT Max Douglas: 0.78 m/s (<=1.1m/s) AoV VTI: 18.70 cm (18-25cm) LVOT VTI: 15.40 cm LVOT Diameter: 1.90 cm (1.8-2.4cm) AoV Area, VTI: 2.33 cm2 (2.5-5.5cm2) AoV Area,Vmax: 2.36 cm2 (2.5-4.5cm2) AoV Dimensionless Index: 0.82 TRICUSPID VALVE/RVSP: (more content not included)... Debbie Dominique MD - 08/22/[address], [address], [place] [address] TRANSTHORACIC ECHOCARDIOGRAM REPORT Patient Name: LESA GOLDEN Reading Physician: [id number] Debbie Mac MD Study Date: 08/21/2023 Ordering Provider: [id number] DEBBIE MAC MRN/PID: [id number] Fellow: Nurse: Date of /Age: 1 1940 / 82 years Chief School Finance Officer: Iqra Pham RDCS, RVT Gender: F Additional Staff: Height: 149.86 cm Admit Date: Weight: 74.84 kg Admission Status: BSA: 1.70 m2 Department Location: [facility] Blood Pressure: 116 /64 mmHg Study Type: TRANSTHORACIC ECHO (TTE) COMPLETE Diagnosis/ICD: Chronic diastolic (congestive) heart failure (CHF)-I50.32; Essential (primary) hypertension-I10; Dyspnea, unspecified-R06.00 Indication: Atrial Fibrillation, Sick Sinus Syndrome, Hyerlipidemia, Pacemaker, Overweight, CKD-Stage III CPT Codes: Echo Complete w Full Doppler-[id number] Study Detail: The following Echo studies were performed: 2D, M-Mode, Doppler and color flow. PHYSICIAN INTERPRETATION: Left Ventricle: Left ventricular systolic function is normal, with an estimated ejection fraction of 55-60%. There are no regional wall motion abnormalities. The left ventricular cavity size is normal. Spectral Doppler shows a normal pattern of left ventricular diastolic filling. Septal motion consistent with pacemaker activation. Left Atrium: The left atrium is mild to moderately dilated. Right Ventricle: The right ventricle is normal in size. There is normal right ventricular global systolic function. Right Atrium: The right atrium is mildly dilated. Mildly dilated right atrium. Aortic Valve: The aortic valve appears structurally normal. There is no evidence of aortic valve regurgitation. The peak instantaneous gradient of the aortic valve is 3.5 mmHg. The mean gradient of the aortic valve is 2.0 mmHg. Mitral Valve: The mitral valve is normal in structure. There is mild to moderate mitral valve regurgitation. Tricuspid Valve: The tricuspid valve is structurally normal. There is mild tricuspid regurgitation. The Doppler estimated RVSP is mildly elevated at 32.8 mmHg. Pulmonic Valve: The pulmonic valve is structurally normal. There is no indication of pulmonic valve regurgitation. Pericardium: There is no pericardial effusion noted. Aorta: The aortic root is normal. Additional Comments: When compared to previous study LV systolic function has improved. CONCLUSIONS: 1. Left ventricular systolic function is normal with a 55-60% estimated ejection fraction. 2. Septal motion consistent with pacemaker activation. 3. The left atrium is mild to moderately dilated. 4. Mildly dilated right atrium. 5. Mild to moderate mitral valve regurgitation. 6. Mildly elevated RVSP. 7. Right ventricular pacer lead was seen. 8. When compared to previous study LV systolic function has improved. QUANTITATIVE DATA SUMMARY: 2D MEASUREMENTS: Normal Ranges: Ao Root d: 2.60 cm (2.0-3.7cm) LAs: 4.00 cm (2.7-4.0cm) RVIDd: 2.70 cm (0.9-3.6cm) IVSd: 1.10 cm (0.6-1.1cm) LVPWd: 0.90 cm (0.6-1.1cm) LVIDd: 3.20 cm (3.9-5.9cm) LVIDs: 2.60 cm LV Mass Index: 53.2 g/m2 LV % FS 18.8 % LV SYSTOLIC FUNCTION BY 2D PLANIMETRY (MOD): Normal Ranges: EF-A4C View: 63.6 % (>=55%) LV DIASTOLIC FUNCTION: Normal Ranges: MV Peak E: 1.48 m/s (0.7-1.2 m/s) MV lateral e' 0.07 m/s MV medial e' 0.05 m/s E/e' Ratio: 20.20 (<8.0) MITRAL VALVE: Normal Ranges: MV Vmax: 1.56 m/s (<=1.3m/s) MV peak P.7 mmHg (<5mmHg) MV mean P.0 mmHg (<48mmHg) MITRAL INSUFFICIENCY: Normal Ranges: MR Vmax: 434.00 cm/s dP/dt: 826 mmHg/s (>1200mmHg/sec) AORTIC VALVE: Normal Ranges: AoV Vmax: 0.94 m/s (<=1.7m/s) AoV Peak P.5 mmHg (<20mmHg) AoV Mean P.0 mmHg (1.7-11.5mmHg) LVOT Max Douglas: 0.78 m/s (<=1.1m/s) AoV VTI: 18.70 cm (18-25cm) LVOT VTI: 15.40 cm LVOT Diameter: 1.90 cm (1.8-2.4cm) AoV Area, VTI: 2.33 cm2 (2.5-5.5cm2) AoV Area,Vmax: 2.36 cm2 (2.5-4.5cm2) AoV Dimensionless Index: 0.82 TRICUSPID VALVE/RVSP: Normal Ranges: Peak TR Velocity: 2.73 m/s RV Syst Pressure: 32.8 mmHg (< 30mmHg) PULMONIC VALVE: Normal Ranges: PV Max Douglas: 0.7 m/s (0.6-0.9m/s) PV Max P.8 mmHg [id number] Mac MD Electronically signed on 08/22/2023 at 12:31:20 PM Final [facility] Work Phone: [facility] Work Phone: TRANSTHORACIC ECHO (TTE) COM PLETEon 08-21-2023 TRANSTHORACIC ECHO (TTE) COMPLETE [address], [place] [address] TRANSTHORACIC ECHOCARDIOGRAM REPORT Patient Name: LESA Allred CHANTEL Arriaga Physician: Zurdo Mac MD Study Date: 08/21/2023 Ordering Provider: Zurdo MAC MRN/PID: [id number] Fellow: Nurse: Date of /Age: 1 1940 / 82 years Chief School Finance Officer: Iqra Pham RDCS, RVT Gender: F Additional Staff: Height: 149.86 cm Admit Date: Weight: 74.84 kg Admission Status: BSA: 1.70 m2 Department Location: [facility] Blood Pressure: 116 /64 mmHg Study Type: TRANSTHORACIC ECHO (TTE) COMPLETE Diagnosis/ICD: Chronic diastolic (congestive) heart failure (CHF)-I50.32; Essential (primary) hypertension-I10; Dyspnea, unspecified-R06.00 Indication: Atrial Fibrillation, Sick Sinus Syndrome, Hyerlipidemia, Pacemaker, Overweight, CKD-Stage III CPT Codes: Echo Complete w Full Doppler-[id number] Study Detail: The following Echo studies were performed: 2D, M-Mode, Doppler and color flow. PHYSICIAN INTERPRETATION: Left Ventricle: Left ventricular systolic function is normal, with an estimated ejection fraction of 55-60%. There are no regional wall motion abnormalities. The left ventricular cavity size is normal. Spectral Doppler shows a normal pattern of left ventricular diastolic filling. Septal motion consistent with pacemaker activation. Left Atrium: The left atrium is mild to moderately dilated. Right Ventricle: The right ventricle is normal in size. There is normal right ventricular global systolic function. Right Atrium: The right atrium is mildly dilated. Mildly dilated right atrium. Aortic Valve: The aortic valve appears structurally normal. There is no evidence of aortic valve regurgitation. The peak instantaneous gradient of the aortic valve is 3.5 mmHg. The mean gradient of the aortic valve is 2.0 mmHg. Mitral Valve: The mitral valve is normal in structure. There is mild to moderate mitral valve regurgitation. Tricuspid Valve: The tricuspid valve is structurally normal. There is mild tricuspid regurgitation. The Doppler estimated RVSP is mildly elevated at 32.8 mmHg. Pulmonic Valve: The pulmonic valve is structurally normal. There is no indication of pulmonic valve regurgitation. Pericardium: There is no pericardial effusion noted. Aorta: The aortic root is normal. Additional Comments: When compared to previous study LV systolic function has improved. CONCLUSIONS: 1. Left ventricular systolic function is normal with a 55-60% estimated ejection fraction. 2. Septal motion consistent with pacemaker activation. 3. The left atrium is mild to moderately dilated. 4. Mildly dilated right atrium. 5. Mild to moderate mitral valve regurgitation. 6. Mildly elevated RVSP. 7. Right ventricular pacer lead was seen. 8. When compared to previous study LV systolic function has improved. QUANTITATIVE DATA SUMMARY: 2D MEASUREMENTS: Normal Ranges: Ao Root d: 2.60 cm (2.0-3.7cm) LAs: 4.00 cm (2.7-4.0cm) RVIDd: 2.70 cm (0.9-3.6cm) IVSd: 1.10 cm (0.6-1.1cm) LVPWd: 0.90 cm (0.6-1.1cm) LVIDd: 3.20 cm (3.9-5.9cm) LVIDs: 2.60 cm LV Mass Index: 53.2 g/m2 LV % FS 18.8 % LV SYSTOLIC FUNCTION BY 2D PLANIMETRY (MOD): Normal Ranges: EF-A4C View: 63.6 % (>=55%) LV DIASTOLIC FUNCTION: Normal Ranges: MV Peak E: 1.48 m/s (0.7-1.2 m/s) MV lateral e' 0.07 m/s MV medial e' 0.05 m/s E/e' Ratio: 20.20 (<8.0) MITRAL VALVE: Normal Ranges: MV Vmax: 1.56 m/s (<=1.3m/s) MV peak P.7 mmHg (<5mmHg) MV mean P.0 mmHg (<48mmHg) MITRAL INSUFFICIENCY: Normal Ranges: MR Vmax: 434.00 cm/s dP/dt: 826 mmHg/s (>1200mmHg/sec) AORTIC VALVE: Normal Ranges: AoV Vmax: 0.94 m/s (<=1.7m/s) AoV Peak P.5 mmHg (<20mmHg) AoV Mean P.0 mmHg (1.7-11.5mmHg) LVOT Max Douglas: 0.78 m/s (<=1.1m/s) AoV VTI: 18.70 cm (18-25cm) LVOT VTI: 15.40 cm LVOT Diameter: 1.90 cm (1.8-2.4cm) AoV Area, VTI: 2.33 cm2 (2.5-5.5cm2) AoV Area,Vmax: 2.36 cm2 (2.5-4.5cm2) AoV Dimensionless Index: 0.82 TRICUSPID VALVE/RVSP: Normal Ranges: Peak TR Velocity: 2.73 m/s RV Syst Pressure: 32.8 mmHg (< 30mmHg) PULMONIC VALVE: Normal Ranges: PV Max Douglas: 0.7 m/s (0.6-0.9m/s) PV Max P.8 mmHg [id number] Debbie Mac MD Electronically signed on 08/22/2023 at 12:31:20 PM Final [facility] ECG 12 Leadon 05-31-2023 Paced atrial rhythm with normal QTc interval [facility] Work Phone: Alkaline Phosphataseon 03-05 ALP [Catalytic activity/Vol] 82 U/L Normal 34-104 [facility] Comment on above: Performed By: #### P P, LYTES, BUN, CREAT #### [facility] [address] [place] [address] [place] Alkaline phosphatase [Enzyma tic activity/volume] in Serum or PlasmaOrdered By: Wilbur Watson on 03-05-2023 ALP [Catalytic activity/Vol] 82 U/L 34-104 [facility] Amylaseon 03-05-2023 Amylase [Catalytic activity/Vol] 32 U/L Normal 29-103 [facility] Comment on above: Performed By: #### P P, LYTES, BUN, CREAT #### [facility] [address] [place] [address] [place] Amylase [Enzymatic activity/ volume] in Serum or PlasmaOrdered By: Wilbur Watson on 03-05-2023 Amylase [Catalytic activity/Vol] 32 U/L 29-103 [facility] Aspartate Amino Transferaseo n 03-05-2023 AST [Catalytic activity/Vol] 19 U/L Normal 13-39 [facility] Comment on above: Performed By: #### B ILTD, LIPASE, ALP, AST, GERRY #### [facility] [address] [place] [address] [place] Aspartate aminotransferase [ Enzymatic activity/volume] in Serum or PlasmaOrdered By: Wilbur Watson on 03-05-2023 AST [Catalytic activity/Vol] 19 U/L 13-39 [facility] Bilirubin, Total and Directo n 03-05-2023 Bilirubin [Mass/Vol] 0.7 mg/dL Normal 0.3-1.0 [facility] Comment on above: Performed By: #### B ILTD, LIPASE, ALP, AST, GERRY #### [facility] [address] [place] [id number] [place] Bilirubin,Indirect 0.5 mg/dL Normal [facility] Comment on above: Performed By: #### B ILTD, LIPASE, ALP, AST, GERRY #### [facility] [address] Bilirubin.indirect [Mass/Vol] 0.20 mg/dL High 0.03-0.18 [facility] Comment on above: Performed By: #### B ILTD, LIPASE, ALP, AST, GERRY #### [facility] [address] Bilirubin.direct [Mass/volum e] in Serum or PlasmaOrdered By: Wilbur Watson on 03-05-2023 Bilirubin.direct [Mass/Vol] 0.20 mg/dL 0.03-0.18 [facility] Bilirubin.total [Mass/volume ] in Serum or PlasmaOrdered By: iWlbur Watson on 03-05-2023 Bilirubin [Mass/Vol] 0.7 mg/dL 0.3-1.0 [facility] Mir 03-05-2023 L ------ Specimen: [id number] Received: 03/05/23 Status: GLORIA Shetty Num: [id number] Spec Type: Surgical Subm Dr: Wilbur Watson DO Tissues: A Gallbladder (GALLBLADDER) Procedures: AMRIT, Gross/Micro L3 Age/ Patient Sex Location Account Attending Physician Lesa Golden 82/F [place] [id number] Wilbur Watson DO SPEC NUM: [id number] RECD: 03/05/23 STATUS: GLORIA SHETTY NUM: [id number] BRENDAN: 03/05/[address] [facility] [address]: Wilbur Watson DO ENTERED: 03/05/23-[address]: BRITTNEY TYPE: Surgical DEPT: S ORDERED: HE, Gross/Micro L3 ORDERED: HE, Gross/Micro L3 Pathological Diagnosis Gallbladder, cholecystectomy: - Chronic cholecystitis and cholelithiasis Clinical Information Gallstones, upper abdominal pain, vomiting Gross Description Received in formalin labeled with the patient's name, date of and gallbladder is a 7.8 x 2.8 x 2.5 cm intact gallbladder with a shafer-pink serosa. The average wall thickness is 0.2 cm. The lumen contains green bile and a 2.5 cm ramirez-black, crystalline cholelith. The mucosa is ramirez, granular. The patent cystic duct margin is inked, measuring 0.3 cm in diameter. Translator And Interpreter sections are submitted in one cassette labeled A1. Microscopic Description One H E slide reviewed. The microscopic examination confirms the diagnosis. Specimen: [id number] Received: 03/05/23 Status: GLORIA Shetty Num: [id number] Spec Type: Surgical Subm Dr: Wilbur Watson DO Tissues: A Gallbladder (GALLBLADDER) Procedures: Montez MARCUS/Nette L3 Patient: GoldenLesa [id number] (Continued) Specimen: [id number] Received: 03/05/23 (Continued) Signed (signature on file) Emeka Aquino MD 03/07/23 1159 Specimen: [id number] Received: 03/05/23 Status: GLORIA Shetty Num: [id number] Spec Type: Surgical Subm Dr: Wilbur Watson DO Tissues: A Gallbladder (GALLBLADDER) Procedures: Montez MARCUS/Nette L3 Patient: Lesa Golden [id number] (Continued) Specimen: [id number] Received: 03/05/23 (Continued) CPT Codes 25793 Specimen: [id number] Received: 03/05/23 Status: GLORIA Shetty Num: [id number] Spec Type: Surgical Subm Dr: Wilbur Watson DO Tissues: A Gallbladder (GALLBLADDER) Procedures: Montez MARCUS/Nette L3 Patient: Lesa Golden [id number] (Continued) Signed (signature on file) Emeka Aquino MD 03/07/23 1159 Normal [facility] Lipaseon 03-05-2023 Lipase [Catalytic activity/Vol] 31.0 U/L Normal 11.0-82.0 [facility] Comment on above: Result Comment: PERF ORMED BY: [place] [address] PATHOLOGIST POLITICAL SCIENCE CHAIR VITOR ZARATE M.D. Performed By: #### P PBERNARDA BUN, CREAT #### [facility] [address] [place] [address] Lipase [Enzymatic activity/v olume] in Serum or PlasmaOrdered By: Wilbur Watson on 03-05-2023 Lipase [Catalytic activity/Vol] 31.0 U/L 11.0-82.0 [facility] Serum or plasma non-glucuron idated bilirubin measurement (mass/volume)Ordered By: Wilbur Watson on 03-05-2023 Bilirubin.indirect [Mass/Vol] 0.5 mg/dL [facility] Basic Metabolic Panelon 02-17 Anion gap [Moles/Vol] 12.6 mmol/L Normal 6.0-15.0 [facility] Comment on above: Performed By: #### P P LYNOAM, BUN, CREAT #### [facility] [address] Calcium [Mass/Vol] 9.0 mg/dL Normal 8.6-10.3 [facility] Comment on above: Result Comment: PERF ORMED BY: [place] [address] PATHOLOGIST POLITICAL SCIENCE CHAIR VITOR ZARATE M.D. Performed By: #### P P, LYTES, BUN, CREAT #### [place] [address] [place] Chloride [Moles/Vol] 108 mmol/L High 98-107 [facility] Comment on above: Performed By: #### P P, LYTES, BUN, CREAT #### [address] CO2 [Moles/Vol] 24.7 mmol/L Normal 21.0-31.0 [facility] Comment on above: Performed By: #### P P, LYTES, BUN, CREAT #### [address] Creatinine [Mass/Vol] 1.03 mg/dL Normal 0.60-1.20 [facility] Comment on above: Performed By: #### P P, LYTES, BUN, CREAT #### [place] [address] [place] GFR/1.73 sq M.predicted MDRD (S/P/Bld) [Vol rate/Area] 54.967 mL/min/{1.73_m2} Normal [facility] Comment on above: Performed By: #### P P, LYTES, BUN, CREAT #### [address] Glucose [Mass/Vol] 81 mg/dL Normal 70-100 [facility] Comment on above: Result Comment: [place] om Glucose Reference Range is dependent on time and content of last meal. Glucose of more than 200 mg/dL in a nonstressed, ambulatory subject supports the diagnosis of Diabetes Mellitus. ADA recommended reference range Performed By: #### P P, LYTES, BUN, CREAT #### [place] [address] [place] Potassium [Moles/Vol] 4.3 mmol/L Normal 3.5-5.1 [facility] Comment on above: Performed By: #### P P, LYTES, BUN, CREAT #### [facility] [address] Sodium [Moles/Vol] 141 mmol/L Normal 136-145 [facility] Comment on above: Performed By: #### P P, LYTES, BUN, CREAT #### [facility] [address] Urea nitrogen [Mass/Vol] 32 mg/dL High 7-25 [facility] Comment on above: Performed By: #### P P, LYTES, BUN, CREAT #### [facility] [address] Basophils Auto (Bld) [#/Vol] Ordered By: Wilbur Watson on 02-26-2023 Basophils (Bld) [#/Vol] 0.0 10*3/uL 0.0-0.2 [facility] Basophils/100 WBC Auto (Bld) Ordered By: Wilbur Watson on 02-26-2023 Basophils/100 WBC (Bld) 0.5 % . [facility] Calcium [Mass/volume] in Ser um or PlasmaOrdered By: Wilbur Watson on 02-26-2023 Calcium [Mass/Vol] 9.0 mg/dL 8.6-10.[address] [facility] Carbon dioxide, total [Moles /volume] in Serum or PlasmaOrdered By: Wilbur Watson on 02-26-2023 CO2 [Moles/Vol] 24.7 mmol/L 21.0-31.0 [facility] Chloride [Moles/volume] in S vaughn or PlasmaOrdered By: Wilbur Watson on 02-26-2023 Chloride [Moles/Vol] 108 mmol/L 98-107 [facility] Complete Blood Count Auto Di ffon 02-26-2023 Basophils (Bld) [#/Vol] 0.0 10*3/uL Normal 0.0-0.2 [facility] Comment on above: Result Comment: PERF ORMED BY: [facility] [address] PATHOLOGIST POLITICAL SCIENCE CHAIR VITOR ZARATE M.D. Performed By: #### P P, LYTES, BUN, CREAT #### [address] Basophils/100 WBC (Bld) 0.5 % Normal . [facility] Comment on above: Performed By: #### P P, LYTES, BUN, CREAT #### [address] Eosinophils (Bld) [#/Vol] 0.2 10*3/uL Normal 0.0-0.45 [facility] Comment on above: Performed By: #### P P, LYTES, BUN, CREAT #### [address] Eosinophils/100 WBC (Bld) 2.2 % Normal . [facility] Comment on above: Performed By: #### P P, LYTES, BUN, CREAT #### [address] Erythrocyte distribution width (RBC) [Ratio] 13.8 % Normal 11.9-15.3 [facility] Comment on above: Performed By: #### P P, LYTES, BUN, CREAT #### [address] Hematocrit (Bld) [Volume fraction] 44.1 % Normal 34.0-46.4 [facility] Comment on above: Performed By: #### P P, LYTES, BUN, CREAT #### [address] Hemoglobin (Bld) [Mass/Vol] 14.9 g/dL Normal 11.8-15.4 [facility] Comment on above: Performed By: #### P P, LYTES, BUN, CREAT #### [address] Lymphocytes (Bld) [#/Vol] 0.9 10*3/uL Low 1.00-4.8 [facility] Comment on above: Performed By: #### P P, LYTES, BUN, CREAT #### [address] Lymphocytes/100 WBC (Bld) 10.3 % Normal . [facility] Comment on above: Performed By: #### P P, LYTES, BUN, CREAT #### [address] MCH (RBC) [Entitic mass] 30.5 pg Normal 24.7-34.3 [facility] Comment on above: Performed By: #### P P, LYTES, BUN, CREAT #### [address] MCV (RBC) [Entitic vol] 90.4 fL Normal 80-100 [facility] Comment on above: Performed By: #### P P, LYTES, BUN, CREAT #### [address] Mean Corpuscular HGB Conc 33.8 g/dL Normal 32.0-35.0 [facility] Comment on above: Performed By: #### P P, LYTES, BUN, CREAT #### [address] Monocytes (Bld) [#/Vol] 0.6 10*3/uL Normal 0.0-0.8 [facility] Comment on above: Performed By: #### P P, LYTES, BUN, CREAT #### [address] Monocytes/100 WBC (Bld) 7.1 % Normal . [facility] Comment on above: Performed By: #### P P, LYTES, BUN, CREAT #### [address] Neutrophils (Bld) [#/Vol] 6.6 10*3/uL Normal 1.8-7.7 [facility] Comment on above: Performed By: #### P P, LYTES, BUN, CREAT #### [address] [place] [address] [place] Neutrophils/100 WBC (Bld) 79.9 % Normal . [facility] Comment on above: Performed By: #### P P, LYTES, BUN, CREAT #### [address] NRBC% 0.0 /100{WBC} Normal 0-0.5 [facility] Comment on above: Performed By: #### P P, LYTES, BUN, CREAT #### [address] Platelet mean volume (Bld) [Entitic vol] 8.9 fL Normal 6.3-10.7 [facility] Comment on above: Performed By: #### P P, LYTES, BUN, CREAT #### [address] Platelets (Bld) [#/Vol] 194 10*3/uL Normal 150-450 [facility] Comment on above: Performed By: #### P P, LYTES, BUN, CREAT #### [address] RBC (Bld) [#/Vol] 4.88 10*6/uL Normal 3.60-5.00 [facility] Comment on above: Performed By: #### P P, LYTES, BUN, CREAT #### [address] [address] WBC (Bld) [#/Vol] 8.3 10*3/uL Normal 3.8-11.6 [facility] Comment on above: Performed By: #### P P, LYTES, BUN, CREAT #### [address] Creatinine [Mass/volume] in Serum or PlasmaOrdered By: Wilbur Watson on 02-26-2023 Creatinine [Mass/Vol] 1.03 mg/dL 0.60-1.20 [facility] Eosinophils Auto (Bld) [#/Vo l]Ordered By: Wilbur Watson on 02-26-2023 Eosinophils (Bld) [#/Vol] 0.2 10*3/uL 0.0-0.45 [facility] Eosinophils/100 WBC Auto (Bl d)Ordered By: Wilbur Watson on 02-26-2023 Eosinophils/100 WBC (Bld) 2.2 % . [facility] Erythrocyte distribution wid th Auto (RBC) [Ratio]Ordered By: Wilbur Watson on 02-26-2023 Erythrocyte distribution width (RBC) [Ratio] 13.8 % 11.9-15.3 [facility] Glucose [Mass/volume] in Ser um or PlasmaOrdered By: Wilbur Watson on 02-26-2023 Glucose [Mass/Vol] 81 mg/dL 70-[address] [facility] Comment on above: ADA recommended refe rence rangeRandom Glucose Reference Range is dependent on time and content of last meal. Glucose of more than 200 mg/dL in a nonstressed, ambulatory subject supports the diagnosis of Diabetes Mellitus. Hematocrit Auto (Bld) [Volum e fraction]Ordered By: Wilbur Watson on 02-26-2023 Hematocrit (Bld) [Volume fraction] 44.1 % 34.0-46.4 [facility] Hemoglobin [Mass/volume] in BloodOrdered By: Wilbur Watson on 02-26-2023 Hemoglobin (Bld) [Mass/Vol] 14.9 g/dL 11.8-15.4 [facility] Leukocytes [#/volume] correc anne marie for nucleated erythrocytes in Blood by Automated counOrdered By: Wilbur Watson on 02-26-2023 WBC corrected for nucl RBC Auto (Bld) [#/Vol] 8.3 10*3/uL 3.8-11.6 [facility] Lymphocytes Auto (Bld) [#/Vo l]Ordered By: Wilbur Watson on 02-26-2023 Lymphocytes (Bld) [#/Vol] 0.9 10*3/uL 1.00-4.8 [facility] Lymphocytes/100 WBC Auto (Bl d)Ordered By: Wilbur Watson on 02-26-2023 Lymphocytes/100 WBC (Bld) 10.3 % . [facility] MCH Auto (RBC) [Entitic mass ]Ordered By: Wilbur Watson on 02-26-2023 MCH (RBC) [Entitic mass] 30.5 pg 24.7-34.3 [facility] MCHC Auto (RBC) [Mass/Vol]Or dered By: Wilbur Watson on 02-26-2023 MCHC (RBC) [Mass/Vol] 33.8 g/dL 32.0-35.0 [facility] MCV Auto (RBC) [Entitic vol] Ordered By: Wilbur Watson on 02-26-2023 MCV (RBC) [Entitic vol] 90.4 fL 80-100 [facility] Monocytes Auto (Bld) [#/Vol] Ordered By: Wilbur Watson on 02-26-2023 Monocytes (Bld) [#/Vol] 0.6 10*3/uL 0.0-0.8 [facility] Monocytes/100 WBC Auto (Bld) Ordered By: Wilbur Watson on 02-26-2023 Monocytes/100 WBC (Bld) 7.1 % . [facility] Neutrophils Auto (Bld) [#/Vo l]Ordered By: Wilbur Watson on 02-26-2023 Neutrophils (Bld) [#/Vol] 6.6 10*3/uL 1.8-7.7 [facility] Neutrophils/100 WBC Auto (Bl d)Ordered By: Wilbur Watson on 02-26-2023 Neutrophils/100 WBC (Bld) 79.9 % . [facility] No Panel InformationOrdered By: Wilbur Watson on 02-26-2023 Estimated GFR (CKD-EPI) 54.967 mL/Min [facility] Creatinine Clearance (Chem N/A [facility] Nucleated erythrocytes [Pres ence] in Blood by Automated countOrdered By: Wilbur Watson on 02-26-2023 Nucleated RBC Auto Ql (Bld) 0.0 /100{WBC} 0-0.5 [facility] Platelet mean volume Auto (B ld) [Entitic vol]Ordered By: Wilbur Watson on 02-26-2023 Platelet mean volume (Bld) [Entitic vol] 8.9 fL 6.3-10.7 [facility] Platelets Auto (Bld) [#/Vol] Ordered By: Wilbur Watson on 02-26-2023 Platelets (Bld) [#/Vol] 194 10*3/uL 150-450 [facility] Potassium [Moles/volume] in Serum or PlasmaOrdered By: Wilbur Watson on 02-26-2023 Potassium [Moles/Vol] 4.3 mmol/L 3.5-5.1 [facility] RBC Auto (Bld) [#/Vol]Ordere d By: Wilbur Watson on 02-26-2023 RBC (Bld) [#/Vol] 4.88 10*6/uL 3.60-5.00 [facility] Serum or plasma anion gap de terminationOrdered By: Wilbur Watson on 02-26-2023 Anion gap [Moles/Vol] 12.6 mmol/L 6.0-15.0 [facility] Sodium [Moles/volume] in Ser um or PlasmaOrdered By: Wilbur Watson on 02-26-2023 Sodium [Moles/Vol] 141 mmol/L 136-[address] [facility] Urea nitrogen [Mass/volume] in Serum or PlasmaOrdered By: Wilbur Watson on 02-26-2023 Urea nitrogen [Mass/Vol] 32 mg/dL 7-25 [facility] WBC Auto (Bld) [#/Vol]Ordere d By: Wilbur Watson on 02-26-2023 WBC (Bld) [#/Vol] 8.3 10*3/uL 3.8-11.[address] [facility] Falls Screening (Age 18+)on 01-25-2023 Fall risk assessment a) No falls within the last year [facility] Work Phone: Tobacco use status CPHS b) No [facility] Work Phone: Office Visit (Cardiology)on 01-25-2023 Follow-up visit Diagnoses/Problems Assessed Dyspnea (786.09) (R06.00) Persistent atrial fibrillation (427.31) (I48.19) Essential hypertension, benign (401.1) (I10) High risk medication use (V58.69) (Z79.899) Hyperlipemia (272.4) (E78.5) Never a smoker Pacemaker (V45.01) (Z95.0) 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 (427.81) (I49.5) Sinus bradycardia (427.89) (R00.1) Stage 3a chronic kidney disease (585.3) (N18.31) Diastolic heart failure (428.30) (I50.30) Class 1 obesity with body mass index (BMI) of 32.0 to 32.9 in adult (278.00,V85.32) (E66.9,Z68.32) Anticoagulated (V58.61) (Z79.01) Single vessel coronary artery disease (414.00) (I25.10) Orders Class 1 obesity with body mass index (BMI) of 32.0 to 32.9 in adult Healthy Weight Tips; Status:Complete - Retrospective Authorization; Done: 25Jan2023 Some eating tips that can help you lose weight.; Status:Complete - Retrospective Authorization; Done: 25Jan2023 Gallstones, Hiatal hernia General Surgery Referral Evaluation and Treatment Evaluate AND Treat Status: Hold For - Scheduling,Retrospective Authorization Requested for: 25Jan2023 Hyperlipemia Renew: Atorvastatin Calcium 40 MG Oral Tablet; TAKE 1 TABLET DAILY Persistent atrial fibrillation IO EKG Electrocardiogram- 12 Lead; Status:Complete; Done: 25Jan2023 SocHx: Never a smoker Tobacco Use Screening; Status:Complete; Done: 25Jan2023 Patient Instructions Please bring all medicines, vitamins, and herbal supplements with you when you come to the office. Prescriptions will not be filled unless you are compliant with your follow up appointments or have a follow up appointment scheduled as per instruction of your physician. Refills should be requested at the time of your visit. To go to GI for work up 02/14 Dr. Stafford pending Follow up in 4 months The provider reviewed the following test(s) and result(s) with the patient: ECG Chief Complaint LESA GOLDEN is being seen for cath follow up. 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 She did not tolerate amiodarone. Dofetilide was ineffective at lower dose and she developed QT prolongation with higher dose. Currently had been on sotalol and seem to remain in sinus rhythm. We did refer her for ablation and had been seen by both Dr. Chacon and Dr. Stafford. She did undergo cardiac catheterization that showed small diagonal disease and medical therapy was recommended. Since last time I saw her she describes symptoms of regurgitation of her food. She reported previous history of hiatal hernia. The result of her recent heart cath noted and reviewed with her Assessment 1. Persistent atrial fibrillation with clinical picture of tachybradycardia syndrome. She is status post permanent pacemaker implantation. She appears to be in normal sinus rhythm on current dose of sotalol. She is in the process of being evaluated for ablation. Amiodarone in the past discontinued because of concern about side effects. She did not tolerate dofetilide higher dose and the smaller dose was ineffective. 2. Long-term anticoagulation with Xarelto which dose due to renal dysfunction 3. History of nephrolithiasis 4. Hypertension controlled 5. Hyperlipidemia 6. Borderline overweight 7. Repeat presentation with diastolic heart failure. 8. Had complaint of recurrent nausea and food regurgitation appears to be due to previous history of hiatal hernia and gallbladder disease 9. Single-vessel coronary artery disease affecting small diagonal medical therapy was recommended 10. Historically the patient is known to have normal LV systolic function however last echo showed LVEF around 40% when she was in atrial fibrillation. This has improved heart cath recently showed EF is 65% 11. Shortness of breath due to diastolic dysfunction Plan 1. I reviewed with the patient results of her cardiac catheterization. We will continue with medical therapy 2. Risk, benefit and alternative anticoagulation and sotalol reviewed patient understood and agreed 3. Continue to monitor for arrhythmia. Patient apparently being evaluated for ablation she is scheduled to see Dr. Stafford in the near future 4. We will refer her back to Dr. Stout for evaluation for her gallbladder disease and hiatal hernia 5. Continue pacemaker follow-up 6. I continue to encourage the patient to exercise and try to lose some weight. I advised her to restrict her salt intake Current Meds Medication NameInstruction Atorvastatin Calcium 40 MG Oral TabletTAKE 1 TABLET DAILY. dilTIAZem HCl - 120 MG Oral TabletTake 1 tablet daily Escitalopram Oxalate 10 MG Oral TabletTAKE 1 TABLET DAILY. rOPINIRole HCl - 1 MG Oral TabletTAKE 1 TABLET AT BEDTIME. Sotalol HCl - 80 MG Oral TabletTAKE 1 TABLET TWICE DAILY. Tylenol 8 Hour 650 MG Oral Tablet Extended ReleaseTAKE 1 TABLET Every 6 hours PRN Xarelto 15 MG Oral TabletTAKE 1 TABLET B (more content not included)... Normal ODEC Activated partial thrombopla stin time (aPTT) in platelet poor plasma by coagulation aOrdered By: Debbie Mac on 01-09-2023 aPTT Coag (PPP) [Time] 19.5 s 25.1-36.5 [facility] Basophils Auto (Bld) [#/Vol] Ordered By: Debbie Mac on 01-09-2023 Basophils (Bld) [#/Vol] 0.0 10*3/uL 0.0-0.2 [facility] Basophils/100 WBC Auto (Bld) Ordered By: Debbie Mac on 01-09-2023 Basophils/100 WBC (Bld) 0.6 % . [facility] Blood Urea Nitrogenon 2022 Urea nitrogen [Mass/Vol] 22 mg/dL Normal 7-25 [facility] Comment on above: Performed By: #### P P, LYTES, BUN, CREAT #### [address] Carbon dioxide, total [Moles /volume] in Serum or PlasmaOrdered By: Debbie Mac on 01-09-2023 CO2 [Moles/Vol] 25.6 mmol/L 21.0-31.0 [facility] Chloride [Moles/volume] in S vaughn or PlasmaOrdered By: Debbie Mac on 01-09-2023 Chloride [Moles/Vol] 106 mmol/L 98-107 [facility] Cholesterol [Mass/volume] in Serum or PlasmaOrdered By: Debbie Mac on 01-09-2023 Cholesterol [Mass/Vol] 135 mg/dL 140-200 [facility] Comment on above: Chol less than 200 m g/dl low riskChol 201-239 mg/dl borderline riskChol 240 mg/dl and greater high risk Cholesterol in LDL Calc [Mas s/Vol]Ordered By: Debbie Mac on 01-09-2023 Cholesterol in LDL [Mass/Vol] 45 mg/dL 0-100 [facility] Comment on above: LDL ATP III CLASSIFI CATIONLDL less than 100 mg/dL OptimalLDL 100-129 mg/dL Near or above optimalLDL 130-159 mg/dL Borderline highLDL 160-189 mg/dL HighLDL greater than 189 mg/dL Very high Cholesterol in VLDL Calc [Ma ss/Vol]Ordered By: Debbie Mac on 01-09-2023 Cholesterol in VLDL [Mass/Vol] 13 mg/dL [facility] Coagulation Profileon 2022 aPTT Coag (Bld) [Time] 19.5 s Low 25.1-36.5 [facility] Comment on above: Result Comment: PERF ORMED BY: [place] [address] PATHOLOGIST POLITICAL SCIENCE CHAIR VITOR ZARATE M.D. Performed By: #### P P, LYTRISTIN SANTACRUZ, CREAT #### [address] INR Coag (PPP) [Relative time] 1.0 {INR} Normal [facility] Comment on above: Result Comment: INR Therapeutic Range A) Pre- and Peroperative OAT started two weeks before surgery. NOT HIP SURGERY: 1.5 - 2.5 HIP SURGERY: 2 - 3 B) Primary and secondary prevention of venous THROMBOSIS: 2 - 3 C) Active venous thrombosis, pulmonary embolism and prevention of recurrent venous thrombosis: 2 - 3 D) Prevention of arterial thromboembolism including patients with mechanical heart valves: 3 - 4.5 Performed By: #### P P, LYTES BUN, CREAT #### [facility] [address] [place] [address] PT Coag (PPP) [Time] 11.5 s Normal 9.0-12.9 [facility] Comment on above: Performed By: #### P P, LYTES BUN, CREAT #### [facility] [address] [place] [address] Complete Blood Count Auto Di ffon 01-09-2023 Basophils (Bld) [#/Vol] 0.0 10*3/uL Normal 0.0-0.2 [facility] Comment on above: Result Comment: PERF ORMED BY: [place] [address] PATHOLOGIST POLITICAL SCIENCE CHAIR VITOR ZARATE M.D. Performed By: #### P P, LYTES, BUN, CREAT #### [address] Basophils/100 WBC (Bld) 0.6 % Normal . [facility] Comment on above: Performed By: #### P P, LYTES, BUN, CREAT #### [address] Eosinophils (Bld) [#/Vol] 0.2 10*3/uL Normal 0.0-0.45 [facility] Comment on above: Performed By: #### P P, LYTES, BUN, CREAT #### [address] Eosinophils/100 WBC (Bld) 2.9 % Normal . [facility] Comment on above: Performed By: #### P P, LYTES, BUN, CREAT #### [address] Erythrocyte distribution width (RBC) [Ratio] 14.5 % Normal 11.9-15.3 [facility] Comment on above: Performed By: #### P P, LYTES, BUN, CREAT #### [address] Hematocrit (Bld) [Volume fraction] 43.9 % Normal 34.0-46.4 [facility] Comment on above: Performed By: #### P P, LYTES, BUN, CREAT #### [address] Hemoglobin (Bld) [Mass/Vol] 14.7 g/dL Normal 11.8-15.4 [facility] Comment on above: Performed By: #### P P, LYTES, BUN, CREAT #### [address] Lymphocytes (Bld) [#/Vol] 1.0 10*3/uL Normal 1.00-4.8 [facility] Comment on above: Performed By: #### P P, LYTES, BUN, CREAT #### [address] Lymphocytes/100 WBC (Bld) 14.7 % Normal . [facility] Comment on above: Performed By: #### P P, LYTES, BUN, CREAT #### [address] MCH (RBC) [Entitic mass] 29.8 pg Normal 24.7-34.3 [facility] Comment on above: Performed By: #### P P, LYTES, BUN, CREAT #### [address] MCV (RBC) [Entitic vol] 89.1 fL Normal 80-100 [facility] Comment on above: Performed By: #### P P, LYTES, BUN, CREAT #### [address] Mean Corpuscular HGB Conc 33.5 g/dL Normal 32.0-35.0 [facility] Comment on above: Performed By: #### P P, LYTES, BUN, CREAT #### [address] Monocytes (Bld) [#/Vol] 0.5 10*3/uL Normal 0.0-0.8 [facility] Comment on above: Performed By: #### P P, LYTES, BUN, CREAT #### [address] Monocytes/100 WBC (Bld) 7.0 % Normal . [facility] Comment on above: Performed By: #### P P, LYTES, BUN, CREAT #### [address] Neutrophils (Bld) [#/Vol] 5.3 10*3/uL Normal 1.8-7.7 [facility] Comment on above: Performed By: #### P P, LYTES, BUN, CREAT #### [address] Neutrophils/100 WBC (Bld) 74.8 % Normal . [facility] Comment on above: Performed By: #### P P, LYTES, BUN, CREAT #### [address] NRBC% 0.1 /100{WBC} Normal 0-0.5 [facility] Comment on above: Performed By: #### P P, LYTES, BUN, CREAT #### [address] Platelet mean volume (Bld) [Entitic vol] 8.8 fL Normal 6.3-10.7 [facility] Comment on above: Performed By: #### P P, LYTES, BUN, CREAT #### [address] Platelets (Bld) [#/Vol] 167 10*3/uL Normal 150-450 [facility] Comment on above: Performed By: #### P P, LYTES, BUN, CREAT #### [address] RBC (Bld) [#/Vol] 4.92 10*6/uL Normal 3.60-5.00 [facility] Comment on above: Performed By: #### P P, LYTES, BUN, CREAT #### [address] WBC (Bld) [#/Vol] 7.1 10*3/uL Normal 3.8-11.6 [facility] Comment on above: Performed By: #### P P, LYTES, BUN, CREAT #### [address] Creatinineon 01-09-2023 Creatinine [Mass/Vol] 0.98 mg/dL Normal 0.60-1.20 [facility] Comment on above: Performed By: #### P P, LYTES, BUN, CREAT #### [address] Creatinine Clr Calc Pharmacy 40.90 Normal [facility] Comment on above: Result Comment: PERF ORMED BY: [place] [address] PATHOLOGIST [employer]IT[employer] SCIENCE CHAIR VITOR ZARATE M.D. Performed By: #### P P, LYTES, BUN, CREAT #### [facility] [address] [place], [place] [id number] [place] GFR/1.73 sq M.predicted MDRD (S/P/Bld) [Vol rate/Area] 58.349 mL/min/{1.73_m2} Normal [facility] Comment on above: Performed By: #### P P, LYTES, BUN, CREAT #### [facility] [address] [place] [address] Creatinine [Mass/volume] in Serum or PlasmaOrdered By: Debbie Mac on 01-09-2023 Creatinine [Mass/Vol] 0.98 mg/dL 0.60-1.20 [facility] ECG 12 lead ECGon 01-09-2023 ECG 12 lead ECG [facility] [place] [address] Electrocardiograph Report Signed Patient: Lesa Golden MR#: [id number] 8 : 1940 Acct:[id number] Age/Sex: 82 / F ADM Date: 01/09/23 Loc: Room: Type: [facility] Attending Dr: Debbie Mac MD Ordering Provider: Debbie Mac MD Date of Service: 01/09/23 ECG/ECG 12 lead ECG: pre CL Copies to: Test Reason : Blood Pressure : / mmHG Vent. Rate : 070 BPM Atrial Rate : 070 BPM P-R Int : 238 ms QRS Dur : 086 ms QT Int : 408 ms P-R-T Axes : 080 -03 124 degrees QTc Int : 440 ms Atrial-paced rhythm with prolonged AV conduction Anterior infarct , age undetermined Abnormal ECG Compared to [id number], atrial paced rhyhm has replaced atrial fibrillation Confirmed by MAGGIE DOZIER MD ([id number]) on 01/09/2023 4:37:47 PM Referred By: Electronically Signed By:MAGGIE DOZIER MD Transcribed By: MUS Signed By Maggie Dozier MD [id number] Normal [facility] Electrolyteson 01-09-2023 Anion gap [Moles/Vol] Not performed Normal 6.0-15.0 [facility] Comment on above: Performed By: #### P P, LYTES, BUN, CREAT #### [address] Chloride [Moles/Vol] 106 mmol/L Normal 98-107 [facility] Comment on above: Performed By: #### P P, LYTES, BUN, CREAT #### [address] CO2 [Moles/Vol] 25.6 mmol/L Normal 21.0-31.0 [facility] Comment on above: Performed By: #### P P, LYTES, BUN, CREAT #### [address] Potassium Normal 3.5-5.1 [facility] Comment on above: Result Comment: Spec imen hemolyzed, redraw requested Performed By: #### P P, LYTES, BUN, CREAT #### [address] Sodium [Moles/Vol] 138 mmol/L Normal 136-145 [facility] Comment on above: Performed By: #### P P, LYTES, BUN, CREAT #### [address] Eosinophils Auto (Bld) [#/Vo l]Ordered By: Debbie Mac on 01-09-2023 Eosinophils (Bld) [#/Vol] 0.2 10*3/uL 0.0-0.45 [facility] Eosinophils/100 WBC Auto (Bl d)Ordered By: Debbie Mac on 01-09-2023 Eosinophils/100 WBC (Bld) 2.9 % . [facility] Erythrocyte distribution wid th Auto (RBC) [Ratio]Ordered By: Debbie Mac on 01-09-2023 Erythrocyte distribution width (RBC) [Ratio] 14.5 % 11.9-15.3 [facility] Hematocrit Auto (Bld) [Volum e fraction]Ordered By: Debbie Mac on 01-09-2023 Hematocrit (Bld) [Volume fraction] 43.9 % 34.0-46.4 [facility] Hemoglobin [Mass/volume] in BloodOrdered By: Debbie Mac on 01-09-2023 Hemoglobin (Bld) [Mass/Vol] 14.7 g/dL 11.8-15.4 [facility] - Chemistry and C hemistry - challengeon 01-09-2023 Cholesterol [Mass/Vol] 135\S\135 below low threshold 140-200 [facility] Work Phone: Comment on above: Chol less than 200 m g/dl low risk Chol 201-239 mg/dl borderline risk Chol 240 mg/dl and greater high risk Cholesterol in LDL [Mass/Vol] 45\S\45 Normal 0-100 [facility] Work Phone: Comment on above: LDL ATP III CLASSIFI CATION LDL less than 100 mg/dL Optimal LDL 100-129 mg/dL Near or above optimal LDL 130-159 mg/dL Borderline high LDL 160-189 mg/dL High LDL greater than 189 mg/dL Very high Laboratory - CoagulationOrde red By: Debbie Mac on 01-09-2023 PT Coag (PPP) [Time] 11.5 s 9.0-12.9 [facility] Leukocytes [#/volume] correc anne marie for nucleated erythrocytes in Blood by Automated counOrdered By: Debbie Mac on 01-09-2023 WBC corrected for nucl RBC Auto (Bld) [#/Vol] 7.1 10*3/uL 3.8-11.6 [facility] Lipid Panelon 01-09-2023 Cholesterol [Mass/Vol] 135 mg/dL Low 140-200 [facility] Comment on above: Result Comment: Chol less than 200 mg/dl low risk Chol 201-239 mg/dl borderline risk Chol 240 mg/dl and greater high risk Performed By: #### L IPID #### [address] Cholesterol in HDL [Mass/Vol] 76 mg/dL Normal 35-85 [facility] Comment on above: Result Comment: HDL CHOL ATP-III CLASSIFICATION Cardiovascular Risk HDL > or equal to 60 mg/dL LOW HDL < 40 mg/dL HIGH Performed By: #### L IPID #### [address] Cholesterol.total/Chol esterol in HDL [Mass ratio] 1.8 {ratio} Normal <5.0 [facility] Comment on above: Result Comment: PERF ORMED BY: [place] [address] PATHOLOGIST POLITICAL SCIENCE CHAIR VITOR ZARATE M.D. Performed By: #### L IPID #### [address] LDL Cholesterol,Calculated 45 mg/dL Normal 0-100 [facility] Comment on above: Result Comment: LDL ATP III CLASSIFICATION LDL less than 100 mg/dL Optimal LDL 100-129 mg/dL Near or above optimal LDL 130-159 mg/dL Borderline high LDL 160-189 mg/dL High LDL greater than 189 mg/dL Very high Performed By: #### L IPID #### [address] Triglyceride w/Reflex 69 mg/dL Normal 0-149 [facility] Comment on above: Result Comment: TRIG ATP III CLASSIFICATION TRIG less than 150 mg/dL Normal TRIG 150-199 mg/dL Borderline high TRIG 200-500 mg/dL High TRIG greater than 500 mg/dL Very high Standard traceable to the Center for Disease Conrtrol and Prevention (CDC) test method. Performed By: #### L IPID #### [address] VLDL CHOLESTEROL 13 mg/dL Normal [facility] Comment on above: Performed By: #### L IPID #### [address] Lymphocytes Auto (Bld) [#/Vo l]Ordered By: Debbie Mac on 01-09-2023 Lymphocytes (Bld) [#/Vol] 1.0 10*3/uL 1.00-4.8 [facility] Lymphocytes/100 WBC Auto (Bl d)Ordered By: Debbie Mac on 01-09-2023 Lymphocytes/100 WBC (Bld) 14.7 % . [facility] MCH Auto (RBC) [Entitic mass ]Ordered By: Debbie Mac on 01-09-2023 MCH (RBC) [Entitic mass] 29.8 pg 24.7-34.3 [facility] MCHC Auto (RBC) [Mass/Vol]Or dered By: Debbie Mac on 01-09-2023 MCHC (RBC) [Mass/Vol] 33.5 g/dL 32.0-35.0 [facility] MCV Auto (RBC) [Entitic vol] Ordered By: Debbie Mac on 01-09-2023 MCV (RBC) [Entitic vol] 89.1 fL 80-100 [facility] Monocytes Auto (Bld) [#/Vol] Ordered By: Debbie Mac on 01-09-2023 Monocytes (Bld) [#/Vol] 0.5 10*3/uL 0.0-0.8 [facility] Monocytes/100 WBC Auto (Bld) Ordered By: Debbie Mac on 01-09-2023 Monocytes/100 WBC (Bld) 7.0 % . [facility] Neutrophils Auto (Bld) [#/Vo l]Ordered By: Debbie Mac on 01-09-2023 Neutrophils (Bld) [#/Vol] 5.3 10*3/uL 1.8-7.7 [facility] Neutrophils/100 WBC Auto (Bl d)Ordered By: Debbie Mac on 01-09-2023 Neutrophils/100 WBC (Bld) 74.8 % . [facility] No Panel Informationon 01-09 74.8\S\74.8 Normal . [facility] Work Phone: 8.8\S\8.8 Normal 6.3-10.7 [facility] Work Phone: [phone] 167\S\167 Normal 150-450 [facility] Work Phone: [phone] 14.5\S\14.5 Normal 11.9-15.3 [facility] Work Phone: [phone] 33.5\S\33.5 Normal 32.0-35.0 [facility] Work Phone: [phone] 29.8\S\29.8 Normal 24.7-34.3 [facility] Work Phone: [phone] 5.3\S\5.3 Normal 1.8-7.7 [facility] Work Phone: [phone] 0.1\S\0.1 Normal 0-0.5 [facility] Work Phone: [phone] 0.6\S\0.6 Normal . [facility] Work Phone: [phone] 2.9\S\2.9 Normal . [facility] Work Phone: [phone] 7.0\S\7.0 Normal . [facility] Work Phone: [phone] 14.7\S\14.7 Normal 11.8-15.4 [facility] Work Phone: [phone] 0.0\S\0.0 Normal 0.0-0.2 [facility] Work Phone: [phone] Comment on above: PERFORMED BY:[place] [address] [address] [place], [place] [phone] MEDICAL DIRECTORVITOR ZARATE M.D. 0.2\S\0.2 Normal 0.0-0.45 [facility] Work Phone: [phone] 0.5\S\0.5 Normal 0.0-0.8 [facility] Work Phone: [phone] 1.0\S\1.0 Normal 1.00-4.8 [facility] Work Phone: [phone] 89.1\S\89.1 Normal 80-100 [facility] Work Phone: [phone] 43.9\S\43.9 Normal 34.0-46.4 [facility] Work Phone: [phone] 4.92\S\4.92 Normal 3.60-5.00 [facility] Work Phone: [phone] 7.1\S\7.1 Normal 3.8-11.6 [facility] Work Phone: [phone] 4.5\S\4.5 Normal 3.5-5.1 [facility] Work Phone: [phone] Comment on above: PERFORMED BY:[address] [address] [place] [place], [place] [phone] MEDICAL DIRECTORVITOR ZARATE M.D. 1.8\S\1.8 Normal <5.0 [facility] Work Phone: [phone] Comment on above: PERFORMED BY:[place] [address] [address] OLIVA MD [id number] MEDICAL DIRECTORVITOR ZARATE M.D. 13\S\13 Normal [facility] Work Phone: [phone] 69\S\69 Normal 0-149 [facility] Work Phone: [phone] Comment on above: TRIG ATP III CLASSIF ICATION TRIG less than 150 mg/dL Normal TRIG 150-199 mg/dL Borderline high TRIG 200-500 mg/dL High TRIG greater than 500 mg/dL Very high Standard traceable to the Center for Disease Conrtrol and Prevention (CDC) test method. 76\S\76 Normal 35-85 [facility] Work Phone: [phone] Comment on above: HDL CHOL ATP-III CLA SSIFICATION Cardiovascular Risk HDL > or equal to 60 mg/dL LOW HDL < 40 mg/dL HIGH 19.5\S\19.5 below low threshold 25.1-36.5 [facility] Work Phone: [phone] Comment on above: PERFORMED BY:[place] [address] [address] OLIVA MD [id number] MEDICAL DIRECTORVITOR ZARATE M.D. 1.0\S\1.0 Normal [facility] Work Phone: Comment on above: INR Therapeutic Rang e A) Pre- and Peroperative OAT started two weeks before surgery. NOT HIP SURGERY: 1.5 - 2.5 HIP SURGERY: 2 - 3 B) Primary and secondary prevention of venous THROMBOSIS: 2 - 3 C) Active venous thrombosis, pulmonary embolism and prevention of recurrent venous thrombosis: 2 - 3 D) Prevention of arterial thromboembolism including patients with mechanical heart valves: 3 - 4.5 11.5\S\11.5 Normal 9.0-12.9 [facility] Work Phone: Test not performed\S \Test not performed Normal 6.0-15.0 [facility] Work Phone: 25.6\S\25.6 Normal 21.0-31.0 [facility] Work Phone: 106\S\106 Normal 98-107 [facility] Work Phone: [phone] Normal 3.5-5.1 [facility] Work Phone: Comment on above: Specimen hemolyzed, redraw requested 138\S\138 Normal 136-145 [facility] Work Phone: 22\S\22 Normal 7-25 [facility] Work Phone: 40.90\S\40.90 Normal [facility] Work Phone: Comment on above: PERFORMED BY:[facility] [place], [place] [phone] MEDICAL DIRECTORVITOR ZARATE M.D. 58.349\S\58.349 Normal [facility] Work Phone: 0.98\S\0.98 Normal 0.60-1.20 [facility] Work Phone: No Panel InformationOrdered By: Debbie Mac on 01-09-2023 Estimated GFR (CKD-EPI) 58.349 mL/Min [facility] Creatinine Clearance (Chem 40.90 [facility] Nucleated erythrocytes [Pres ence] in Blood by Automated countOrdered By: Debbie Mac on 01-09-2023 Nucleated RBC Auto Ql (Bld) 0.1 /100{WBC} 0-0.5 [facility] Platelet mean volume Auto (B ld) [Entitic vol]Ordered By: Debbie Mac on 01-09-2023 Platelet mean volume (Bld) [Entitic vol] 8.8 fL 6.3-10.7 [facility] Platelet poor plasma interna tional normalized ratio (INR) by coagulation assay (relatOrdered By: Debbie Mac on 01-09-2023 INR Coag (PPP) [Relative time] 1.0 {INR} [facility] Comment on above: INR Therapeutic Rang e A) Pre- and Peroperative OAT started two weeks before surgery. NOT HIP SURGERY: 1.5 - 2.5 HIP SURGERY: 2 - 3B) Primary and secondary prevention of venous THROMBOSIS: 2 - 3C) Active venous thrombosis, pulmonary embolismand prevention of recurrent venous thrombosis: 2 - 3D) Prevention of arterial thromboembolismincluding patients with mechanical heart valves: 3 - 4.5 Platelets Auto (Bld) [#/Vol] Ordered By: Debbie Mac on 01-09-2023 Platelets (Bld) [#/Vol] 167 10*3/uL 150-450 [facility] Potassium [Moles/volume] in Serum or PlasmaOrdered By: Debbie Mac on 01-09-2023 Potassium [Moles/Vol] 4.5 mmol/L 3.5-5.1 [facility] RBC Auto (Bld) [#/Vol]Ordere d By: Debbie Mac on 01-09-2023 RBC (Bld) [#/Vol] 4.92 10*6/uL 3.60-5.00 [facility] Redraw Potassiumon Potassium [Moles/Vol] 4.5 mmol/L Normal 3.5-5.1 [facility] Comment on above: Result Comment: PERF ORMED BY: [facility] [address] [place] [address] PATHOLOGIST POLITICAL SCIENCE CHAIR VITOR ZARATE M.D. Performed By: #### P P, LYTES, BUN, CREAT #### [facility] [address] Serum or plasma anion gap de terminationOrdered By: Debbie Mac on 01-09-2023 Anion gap [Moles/Vol] TNP [facility] Comment on above: Test not performed Serum or plasma high density lipoprotein (HDL) cholesterol measurementOrdered By: Debbie Mac on 01-09-2023 Cholesterol in HDL [Mass/Vol] 76 mg/dL 35-85 [facility] Comment on above: HDL CHOL ATP-III CLA SSIFICATION Cardiovascular RiskHDL > or equal to 60 mg/dL LOWHDL < 40 mg/dL HIGH Serum or plasma total choles terol/high density lipoprotein (HDL) cholesterol mass ratOrdered By: Debbie Mac on 01-09-2023 Cholesterol.total/Chol esterol in HDL [Mass ratio] 1.8 {ratio} <5.0 [facility] Sodium [Moles/volume] in Ser um or PlasmaOrdered By: Debbie Mac on 01-09-2023 Sodium [Moles/Vol] 138 mmol/L 136-[address] [facility] Triglyceride [Mass/volume] i n Serum or PlasmaOrdered By: Debbie Mac on 01-09-2023 Triglyceride [Mass/Vol] 69 mg/dL 0-149 [facility] Comment on above: TRIG ATP III CLASSIF ICATIONTRIG less than 150 mg/dL NormalTRIG 150-199 mg/dL Borderline highTRIG 200-500 mg/dL High TRIG greater than 500 mg/dL Very highStandard traceable to the Center for Disease Conrtrol and Prevention (CDC) test method. Urea nitrogen [Mass/volume] in Serum or PlasmaOrdered By: Debbie Mac on 01-09-2023 Urea nitrogen [Mass/Vol] 22 mg/dL 7-25 [facility] WBC Auto (Bld) [#/Vol]Ordere d By: Debbie Mac on 01-09-2023 WBC (Bld) [#/Vol] 7.1 10*3/uL 3.8-11.[address] [facility] Office Visit (Cardiology)on 01-04-2023 Follow-up visit Diagnoses/Problems Assessed History of dyspnea (V12.69) (Z87.898) Essential hypertension, benign (401.1) (I10) Hyperlipemia (272.4) (E78.5) Never a smoker Pacemaker (V45.01) (Z95.0) Sinus bradycardia (427.89) (R00.1) 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 (427.81) (I49.5) Persistent atrial fibrillation (427.31) (I48.19) Stage 3a chronic kidney disease (585.3) (N18.31) Class 1 obesity with body mass index (BMI) of 32.0 to 32.9 in adult (278.00,V85.32) (E66.9,Z68.32) Anticoagulated (V58.61) (Z79.01) Diastolic heart failure (428.30) (I50.30) High risk medication use (V58.69) (Z79.899) Dyspnea (786.09) (R06.00) Anginal equivalent (413.9) (I20.8) Orders Class 1 obesity with body mass index (BMI) of 32.0 to 32.9 in adult Healthy Weight Tips; Status:Complete; Done: [id number] Some eating tips that can help you lose weight.; Status:Complete; Done: 55Cci2867 Diastolic heart failure, Dyspnea, Essential hypertension, benign, Persistent atrial fibrillation, 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 Cardiac Catherization; Status:Active; Requested for:[id number]; Persistent atrial fibrillation IO EKG Electrocardiogram- 12 Lead; Status:Complete; Done: 15Ltz7070 SocHx: Never a smoker Tobacco Use Screening; Status:Complete; Done: [id number] Patient Instructions Please bring all medicines, vitamins, and herbal supplements with you when you come to the office. Prescriptions will not be filled unless you are compliant with your follow up appointments or have a follow up appointment scheduled as per instruction of your physician. Refills should be requested at the time of your visit. Pacemaker/Defibrillator follow up per routine Hold Xarelto 3 days prior to cardiac Catherization Follow up after testing completed The provider reviewed the following test(s) and result(s) with the patient: ECG, laboratory tests and Device Check Chief Complaint LESA GOLDEN is being seen for a 3 month follow-up of. History of Present Illness Patient is here for follow-up continue management for persistent atrial fibrillation, repeated presentation with shortness of breath and diastolic heart failure, long-term anticoagulation. She was in the past on amiodarone but this was discontinued because of concern about side effects. She did not tolerate to 15. She was placed recently on sotalol and she seemed to be in and out of atrial fibrillation. We discussed evaluation for ablation. She was seen recently by Dr. Chacon but apparently ablation could not be done until April and the patient did not want a wait that long so I did ask Dr. Stafford to see her. He agreed for consideration to proceed with ablation but he requested cardiac catheterization to be done considering the patient has several presentation with increasing shortness of breath and because of her risk factors. The patient has multiple presentation with diastolic heart failure. She did undergo Lexiscan myocardial fusion study few years back which was negative. Assessment 1. Persistent atrial fibrillation with clinical picture of tachybradycardia syndrome. She is status post permanent pacemaker implantation. She appears to be in and out of atrial fibrillation on current dose of sotalol. She is in the process of being evaluated for ablation. Amiodarone in the past discontinued because of concern about side effects. She did not tolerate dofetilide higher dose and the smaller dose was ineffective. 2. Long-term anticoagulation with Xarelto which dose due to renal dysfunction 3. History of nephrolithiasis 4. Hypertension controlled 5. Hyperlipidemia 6. Borderline overweight 7. Repeat presentation with diastolic heart failure. Concern about underlying ischemic heart disease considering her risk profile and repeat presentation with diastolic heart failure 8. Had complaint of recurrent nausea and vomiting she was diagnosed with esophageal stricture with concern liver cirrhosis followed by GI in the past 9. The bloating and abdominal pain with previous history of cholelithiasis. She was in the process of undergoing cholecystectomy when she was found to be back in atrial fibrillation and her surgery was canceled 10. Historically the patient is known to have normal LV systolic function however last echo showed LVEF around 40% when she was in atrial fibrillation unclear whether this is reflection of true changes or due to atrial fibrillation 11. Shortness of breath probable angina equivalent could be also due to diastolic dysfunction Plan 1. I discussed with her proceeding with ischemic evaluation concerning her presentation with shortness of breath which could be angina equivalent and repeated presentation with diastolic heart failure and based on the EP service recommendation. Risk, benefits and alternatives of heart cath reviewed with patient she understood and agreed the need to hold anticoagulation for few days prior to this discussed 2. Risk, benefit and alternat (more content not included)... Normal [facility] TROPONIN, HIGH SENSITIVITYon 01-04-2023 HSTROP 73.1 pg/mL Critically high 4.0-51.3 [facility] Comment on above: Result Comment: CUT- OFF POINTS HAVE BEEN ESTABLISHED BASED ON THE FOURTH UNIVERSAL DEFINITIONS OF MYOCARDIAL INFARCTION. THE UPPER REFERENCE LIMIT (URL) OF TROPONIN, DEFINED THE 99TH PERCENTILE OF cTnI DISTRIBUTION IN A REFERENCE POPULATION, HAS BEEN CONFIRMED THE DECISION THRESHOLD FOR NV DIAGNOSIS. Performed By: #### H STROPN #### [facility] [address] [place], [place] [address] Dr. Lori Sutton Tobacco Screening.on 023 Tobacco use status CP b) [facility] Work Phone: XR CHEST 1 Von 01-04-2023 XR CHEST 1 V EXAM: XR CHEST 1 V HISTORY: SHORTNESS OF BREATH COMPARISON: 01/02/2023 TECHNIQUE: AP view of the chest FINDINGS: The level of inspiration is suboptimal. There is no focal airspace consolidation. There is mild enlargement of the cardiac silhouette despite AP projection. There is a left-sided pacemaker, in place. There is large hiatal hernia. No evidence of pleural effusion or pneumothorax are identified. No acute osseous abnormality. IMPRESSION: No acute cardiopulmonary process. Recommend follow up imaging if symptoms worsen or persist. Mild cardiomegaly. Large hiatal hernia. Electronically authenticated by: [facility] Date: 2023-01-03 22:39 Normal [facility] BNPon 01-03-2023 Natriuretic peptide B (Bld) [Mass/Vol] 438.0 pg/mL Normal <=1,800.0 [facility] Comment on above: Performed By: #### B FAN RUNNER ####[facility] [address] [place], [place] [address]RcDr. Lori Sutton CBC AUTO DIFFon 01-03-2023 BASO # 0.0 103/ul Normal 0.0-0.1 [facility] Comment on above: Performed By: #### C BC ####[facility] [address] [place] [address]Dr. Lori Sutton Basophils/100 WBC (Bld) 0.7 % Normal 0.2-2.0 [facility] Comment on above: Performed By: #### C BC ####[facility] [address] [place], [place] [address]Dr. Lori Sutton EO # 0.2 103/ul Normal 0.0-0.7 [facility] Comment on above: Performed By: #### C BC ####[facility] [address] [place], [place] [address]Dr. Lori Herman Eosinophils/100 WBC (Bld) 4.2 % Normal 0.9-7.0 [facility] Comment on above: Performed By: #### C BC ####[facility] [address] [place], [place] [address]Dr. Lori Sutton Erythrocyte distribution width (RBC) [Ratio] 13.7 % Normal 11.0-15.0 [facility] Comment on above: Performed By: #### C BC ####[facility] [address] [place], [place] [address]Dr. Lori Sutton Hematocrit (Bld) [Volume fraction] 46.1 % Normal 36.0-48.0 [facility] Comment on above: Performed By: #### C BC ####[facility] [address] [place], [place] [address]Dr. Lori Sutton Hemoglobin (Bld) [Mass/Vol] 14.7 g/dL Normal 12.0-16.0 [facility] Comment on above: Performed By: #### C BC ####[facility] [address] [place], [place] [address]Dr. Lori Sutton IG # 0.01 10e3/ul Normal 0.00-0.03 [facility] Comment on above: Performed By: #### C BC ####[facility] [address] [place], [place] [address]Dr. Lori Herman IG % 0.2 % Normal 0.0-0.5 [facility] Comment on above: Performed By: #### C BC ####[facility] [address] [place] [address]Dr. Lori Sutton LYMPH # 1.3 103/ul Normal 1.2-3.8 [facility] Comment on above: Performed By: #### C BC ####[facility] [address] [place] [address]Dr. Lori Sutton Lymphocytes/100 WBC (Bld) 22.9 % Normal 20.5-60.0 [facility] Comment on above: Performed By: #### C BC ####[facility] [address] [place] [address]DrMelita Sutton MANUAL DIFF REQ NO Normal [facility] Comment on above: Performed By: #### C BC ####[facility] [address] [place], [place] [address]Dr. Lori uStton MCH (RBC) [Entitic mass] 29.7 pg Normal 26.7-34.0 [facility] Comment on above: Performed By: #### C BC ####[facility] [address] [place], [place] [address]Dr. Estephaniaurbano Sutton MCHC (RBC) [Mass/Vol] 31.9 g/dL Normal 29.9-35.2 [facility] Comment on above: Performed By: #### C BC ####[facility] [address] [place], [place] [address]DrMelita Sutton MCV (RBC) [Entitic vol] 93.1 fL Normal 81.0-99.0 [facility] Comment on above: Performed By: #### C BC ####[facility] [address] [place], [place] [address]DrMelita Sutton MONO # 0.3 103/ul Normal 0.3-0.8 [facility] Comment on above: Performed By: #### C BC ####[facility] [address] [place] [id number]. Lori Sutton Monocytes/100 WBC (Bld) 4.7 % Normal 1.7-12.0 [facility] Comment on above: Performed By: #### C BC ####[facility] [address] [place] [address]Dr. Lori Sutton NEUT # 3.9 103/ul Normal 1.4-6.5 [facility] Comment on above: Performed By: #### C BC ####[facility] [address] [place] [id number]. Lori Sutton Neutrophils/100 WBC (Bld) 67.3 % Normal 43.0-75.0 [facility] Comment on above: Performed By: #### C BC ####[facility] [address] [place] [address]Dr. Lori Sutton Platelet mean volume (Bld) [Entitic vol] 10.5 fL Normal 9.5-13.5 [facility] Comment on above: Performed By: #### C BC ####[facility] [address] [place] [address]Dr. Lori Sutton PLT 211 103/ul Normal 150-450 [facility] Comment on above: Performed By: #### C BC ####[facility] [address] [place], [place] [address]Dr. Lori Sutton RBC 4.95 106/ul Normal 4.20-5.40 [facility] Comment on above: Performed By: #### C BC ####[facility] [address] [place], [place] [address]Dr. Lori Sutton WBC 5.7 103/ul Normal 4.0-11.0 [facility] Comment on above: Performed By: #### C BC ####[facility] [address] [place] [id number]. Lori Sutton D-DIMERon 01-03-2023 D-DIMER 0.26 mg/L FEU Normal <=0.59 [facility] Comment on above: Performed By: #### D DIM ####[facility] [address] [place] [id number]. Lori Sutton D-DIMER COMMENTS SEE BELOW Normal [facility] Comment on above: Result Comment: Incr eases in D-Dimer concentration observed with thromboembolic events can be variable due to localization, size, and age of the thrombus. Therefore, a thromboembolic event cannot be diagnosed with certainty on the basis of the reference range. D-Dimers may also be elevated for a variety of disorders including: advanced age, , coronary disease, cancer, liver disease, infection, inflammation, hematoma, DIC, trauma, post-surgery, diabetes, thrombolytic or anticoagulant therapy, stress, and generalized hospitalization. Performed By: #### D [facility] ####[facility] [address] [place], [place] [address]Ca. Lori Sutton Office Visit (Cardiology)on 01-03-2023 Follow-up visit Diagnoses/Problems Assessed Persistent atrial fibrillation (427.31) (I48.19) 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 (427.81) (I49.5) Sinus bradycardia (427.89) (R00.1) High risk medication use (V58.69) (Z79.899) Essential hypertension, benign (401.1) (I10) Diastolic heart failure (428.30) (I50.30) Anticoagulated (V58.61) (Z79.01) Never a smoker Pacemaker (V45.01) (Z95.0) Class 1 obesity with body mass index (BMI) of 33.0 to 33.9 in adult (278.00,V85.33) (E66.9,Z68.33) Orders Persistent atrial fibrillation IO EKG Electrocardiogram- 12 Lead; Status:Active - Perform Order,Retrospective Authorization; Requested for:[id number]; SocHx: Never a smoker Tobacco Use Screening; Status:Complete; Done: 20Uis2560 Patient Instructions Continue same medications/treatment. Patient educated on proper medication use. Patient educated on risk factor modification. Please bring any lab results from other providers/physicians to your next appointment. Please bring all medicines, vitamins, and herbal supplements with you when you come to the office. Prescriptions will not be filled unless you are compliant with your follow up appointments or have a follow up appointment scheduled as per instruction of your physician. Refills should be requested at the time of your visit. Follow up in 4-[address] Maxwell Stafford M.D. I, Karen Lau RN, am scribing for and in the presence of Dr. Maxwell Stafford The provider reviewed the following test(s) and result(s) with the patient: ECG Chief Complaint Patient is here today for a scheduled follow up History of Present Illness 82-year-old female with a past medical history of hypertension, hyperlipidemia. Patient had a long history of atrial fibrillation for which she started seeing [facility] since 2020 after she was hospitalized in [facility] for bradycardia. Adjustment of her medical therapy was performed with amiodarone at that time. 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 She was continue on amiodarone. This medication was discontinued at some point the beginning of 2022 due to long-term side effects. Initially she was placed on Tikosyn but Tikosyn produced QT prolongation and she was placed on sotalol therapy. Patient is being evaluated recently at [facility] for ablation therapy for atrial fibrillation. She also has a long history of shortness of breath but for the last 2 to 3 months she has been having worsening episodes at a point that she sometimes is not able to complete sentences during talk. She even feels short of breath at rest. Looking at her records she had an a stress test in 2019 with no evidence of ischemia. Echocardiogram in 2019 shows normal left ventricular function wall of 50 to 55% (then repeat echocardiograms until last 1 in August 2022 shows left ventricular ejection fraction of 40%. Also during this study in August 2022, patient was in atrial fibrillation. She also has required multiple cardioversions including the last one in September 2022. Her last device interrogation was in November 2022 that shows underlying rhythm of atrial flutter with the longest episode of 15 minutes. RV paced 9% of the time. Battery longevity 7 to 8 years. Patient is still using sotalol 80 mg 1 tablet twice a day and Xarelto therapy 50 mg 1 tablet daily. EKG performed today shows atrial paced rhythm at a rate of 70 bpm. QRS duration 90 ms. QT corrected 429 ms. Rhythm strip shows the same pattern. Patient had a dual-chamber pacemaker [facility] implanted in June 29, 2021. Clinical impression 1. Shortness of breath, persistent 2. Paroxysmal?persistent atrial fibrillation on high risk medication (sotalol) 3. Long-term anticoagulant therapy with Xarelto 4. Hypertension 5. Hyperlipidemia 6. Cardiomyopathy with a left ventricular ejection fraction 40% per echocardiogram August 2022 7. No evidence of ischemia per stress test in 2019 8. Tachybradycardia syndrome status post dual-chamber pacemaker implanted in 2020 Plan recommendations I had a lengthy discussion with patient and family member regarding episodes of shortness of breath that is getting worse lately. Patient will decide if an ischemia work-up with cardiac catheterization. She also has a history of kidney stones. She had also history of renal dysfunction. We will obtain laboratory data to see if patient is ready for procedure. I have personally discussed case with primary cardiology team. Patient will be reevaluated my office in next 4 to 6 weeks. Patient is short of breath all the time and not even related with atrial fibrillation. Shortness of breath needs to be addressed first before we offer her pulmonary isolation. I have personally also discussed pulmonary isolation with patient and family members, procedures, risk, benefits and possible applicat (more content not included)... Normal [facility] PROF 14(COMP METB)on 023 Albumin [Mass/Vol] 3.8 g/dL Normal 3.4-5.0 [facility] Comment on above: Performed By: #### C LESTER HSTROPN ####[facility] [address] [place] [address]Dr. Lori Sutton Albumin/Globulin [Mass ratio] 1.2 {ratio} Normal [facility] Comment on above: Performed By: #### C LESTER HSTROPN ####[facility] [address] [place] [address]Dr. Lori Sutton ALP [Catalytic activity/Vol] 101 U/L Normal 46-116 [facility] Comment on above: Performed By: #### C LESTER HSTROPN ####[facility] [address] [place] [id number]. Lori Sutton ALT [Catalytic activity/Vol] 25 U/L Normal 14-59 [facility] Comment on above: Performed By: #### C LESTER HSTROPN ####[facility] [address] [place] [address]DrMelita Sutton Anion gap [Moles/Vol] 15.5 mmol/L Normal Th e [facility] Comment on above: Performed By: #### C LESTER, HSTROPN ####[facility] [address] [place] [address]Dr. Lori Sutton AST [Catalytic activity/Vol] 24 U/L Normal 15-37 [facility] Comment on above: Performed By: #### C LESTER, HSTROPN ####[facility] [address] [place] [address]Dr. Lori Sutton Bilirubin [Mass/Vol] 0.8 mg/dL Normal 0.2-1.0 [facility] Comment on above: Performed By: #### C LESTER, HSTROPN ####[facility] [address] [place], [place] [address]Dr. Lori Sutton Calcium [Mass/Vol] 8.8 mg/dL Normal 8.5-10.1 [facility] Comment on above: Performed By: #### C LESTER, HSTROPN ####[facility] [address] [place], [place] [address]Dr. Lori Sutton Chloride [Moles/Vol] 105 mmol/L Normal 98-107 [facility] Comment on above: Performed By: #### C LESTER, HSTROPN ####[facility] [address] [place] [address]Dr. Lori Sutton CO2 [Moles/Vol] 24.5 mmol/L Normal 21.0-32.0 [facility] Comment on above: Performed By: #### C LESTER, HSTROPN ####[facility] [address] [place], [place] [address]Dr. Lori Sutton Creatinine [Mass/Vol] 1.28 mg/dL Critically high 0.55-1.02 [facility] Comment on above: Performed By: #### C LESTER, HSTROPN ####[facility] [address] [place] [address]Dr. Lori Sutton EGFR-AF SERBIAN 49 mL/min/1.73m2 Critically low >=60 [facility] Comment on above: Performed By: #### C MP, HSTROPN ####[facility] [address] [place] [address]Dr. Lori Sutton EGFR-NON AF SERBIAN 40 mL/min/1.73m2 Critically low >=60 [facility] Comment on above: Performed By: #### C LESTER, HSTROPN ####[facility] [address] [place] [address]Dr. Lori Sutton Globulin (S) [Mass/Vol] 3.2 g/dL Normal [facility] Comment on above: Performed By: #### C LESTER, HSTROPN ####[facility] [address] [place] [address]Dr. Lori Sutton Glucose [Mass/Vol] 230 mg/dL Critically high 74-106 [facility] Comment on above: Performed By: #### C LESTER, HSTROPN ####[facility] [address] [place] [address]Dr. Lori Sutton Potassium [Moles/Vol] 4.0 mmol/L Normal 3.5-5.1 [facility] Comment on above: Performed By: #### C LESTER, HSTROPN ####[facility] [address] [place], [place] [address]Dr. Lori Sutton Protein [Mass/Vol] 7.0 g/dL Normal 6.4-8.2 [facility] Comment on above: Performed By: #### C LESTER, HSTROPN ####[facility] [address] [place] [address]Dr. Lori Sutton Sodium [Moles/Vol] 141 mmol/L Normal 136-145 [facility] Comment on above: Performed By: #### C MP, HSTROPN ####[facility] [address] [place], [place] [address]Dr. Lori Sutton Urea nitrogen [Mass/Vol] 28.0 mg/dL Critically high 7.0-18.0 [facility] Comment on above: Performed By: #### C LESTER, HSTROPN ####[facility] [address] [place], [place] [address]Dr. Lori Sutton Urea nitrogen/Creatinine [Mass ratio] 21.9 mg/mg Normal [facility] Comment on above: Performed By: #### C LESTER HSTROPN ####[facility] [address] [place] [address]Dr. Lori Sutton TROPONIN, HIGH SENSITIVITYon 01-03-2023 HSTROP 74.5 pg/mL Critically high 4.0-51.3 [facility] Comment on above: Result Comment: CUT- OFF POINTS HAVE BEEN ESTABLISHED BASED ON THE FOURTH UNIVERSAL DEFINITIONS OF MYOCARDIAL INFARCTION. THE UPPER REFERENCE LIMIT (URL) OF TROPONIN, DEFINED THE 99TH PERCENTILE OF cTnI DISTRIBUTION IN A REFERENCE POPULATION, HAS BEEN CONFIRMED THE DECISION THRESHOLD FOR [place] DIAGNOSIS. Performed By: #### C LESTER HSTROPN ####[facility] [address] [place] [address]Dr. Lori Sutton Tobacco Screening.on 023 Fall risk assessment a) No falls within the last year [facility] Work Phone: Tobacco use status CPHS b) No [facility] Work Phone: Tobacco Screening. Yes [facility] Work Phone: AMYLASEon 01-02-2023 Amylase [Catalytic activity/Vol] 37 U/L Normal 25-115 [facility] Comment on above: Performed By: #### B FAN RUNNER, GERRY, CMP #### [facility] [address] [address] [address] Lori Sutton BNPon 01-02-2023 Natriuretic peptide B (Bld) [Mass/Vol] 690.0 pg/mL Normal <=1,800.0 [facility] Comment on above: Performed By: #### B FAN RUNNER, GERRY, CMP ####[facility] [address] [place] [address]Dr. Lori Sutton CBC AUTO DIFFon 01-02-2023 BASO # 0.0 103/ul Normal 0.0-0.1 [facility] Comment on above: Performed By: #### C BC #### [facility] [address] [place] [address] Dr. Lori Sutton Basophils/100 WBC (Bld) 0.6 % Normal 0.2-2.0 [facility] Comment on above: Performed By: #### C BC #### [facility] [address] [place] [address] Dr. Lori Sutton EO # 0.2 103/ul Normal 0.0-0.7 [facility] Comment on above: Performed By: #### C BC #### [facility] [address] [place] [address] Dr. Lori Sutton Eosinophils/100 WBC (Bld) 2.8 % Normal 0.9-7.0 [facility] Comment on above: Performed By: #### C BC #### [facility] [address] [place] [address] Dr. Lori Sutton Erythrocyte distribution width (RBC) [Ratio] 13.8 % Normal 11.0-15.0 [facility] Comment on above: Performed By: #### C BC #### [facility] [address] [place] [address] Dr. Lori Sutton Hematocrit (Bld) [Volume fraction] 46.3 % Normal 36.0-48.0 [facility] Comment on above: Performed By: #### C BC #### [facility] [address] [place] [address] Dr. Lori Sutton Hemoglobin (Bld) [Mass/Vol] 15.0 g/dL Normal 12.0-16.0 [facility] Comment on above: Performed By: #### C BC #### [facility] [address] [place] [address] Dr. Lori Sutton IG # 0.01 10e3/ul Normal 0.00-0.03 [facility] Comment on above: Performed By: #### C BC #### [facility] [address] [place] [address] Dr. Lori Sutton IG % 0.2 % Normal 0.0-0.5 [facility] Comment on above: Performed By: #### C BC #### [facility] [address] [place] [address] Dr. Lori Sutton LYMPH # 1.1 103/ul Critically low 1.2-3.8 [facility] Comment on above: Performed By: #### C BC #### [facility] [address] [place] [address] Dr. Lori Sutton Lymphocytes/100 WBC (Bld) 17.6 % Critically low 20.5-60.0 [facility] Comment on above: Performed By: #### C BC #### [facility] [address] [place] [address] Dr. Lori Sutton MANUAL DIFF REQ NO Normal [facility] Comment on above: Performed By: #### C BC #### [facility] [address] [place] [address] Dr. Lori Sutton MCH (RBC) [Entitic mass] 29.7 pg Normal 26.7-34.0 [facility] Comment on above: Performed By: #### C BC #### [facility] [address] [place] [address] Dr. Lori Sutton MCHC (RBC) [Mass/Vol] 32.4 g/dL Normal 29.9-35.2 [facility] Comment on above: Performed By: #### C BC #### [facility] [address] [place] [address] Dr. Lori Sutton MCV (RBC) [Entitic vol] 91.7 fL Normal 81.0-99.0 [facility] Comment on above: Performed By: #### C BC #### [facility] [address] [place] [address] Dr. Lori Sutton MONO # 0.4 103/ul Normal 0.3-0.8 [facility] Comment on above: Performed By: #### C BC #### [facility] [address] [place] [address] Dr. Lori Sutton Monocytes/100 WBC (Bld) 6.2 % Normal 1.7-12.0 [facility] Comment on above: Performed By: #### C BC #### [facility] [address] [place] [address] Dr. oLri Sutton NEUT # 4.6 103/ul Normal 1.4-6.5 [facility] Comment on above: Performed By: #### C BC #### [facility] [address] [address] [address] Lori Sutton Neutrophils/100 WBC (Bld) 72.6 % Normal 43.0-75.0 [facility] Comment on above: Performed By: #### C BC #### [facility] [address] [address] [address] Lori Sutton Platelet mean volume (Bld) [Entitic vol] 10.3 fL Normal 9.5-13.5 [facility] Comment on above: Performed By: #### C BC #### [facility] [address] [place] [address] Dr. Lori Sutton PLT 207 103/ul Normal 150-450 [facility] Comment on above: Performed By: #### C BC #### [facility] [address] [place] [address] Dr. Lori Sutton RBC 5.05 106/ul Normal 4.20-5.40 [facility] Comment on above: Performed By: #### C BC #### [facility] [address] [place] [address] Dr. Lori Sutton WBC 6.3 103/ul Normal 4.0-11.0 [facility] Comment on above: Performed By: #### C BC #### [facility] [address] [place] [address] Dr. Lori Sutton PROF 14(COMP METB)on 023 Albumin [Mass/Vol] 3.9 g/dL Normal 3.4-5.0 [facility] Comment on above: Performed By: #### B FAN RUNNER, GERRY, CMP ####[facility] [address] [place] [address]Dr. Lori Sutton Albumin/Globulin [Mass ratio] 1.2 {ratio} Normal [facility] Comment on above: Performed By: #### B FAN RUNNER, GERRY, CMP ####[facility] [address] [place] [id number]. Lori Sutton ALP [Catalytic activity/Vol] 98 U/L Normal 46-116 [facility] Comment on above: Performed By: #### B FAN RUNNER, GERRY, CMP ####[facility] [address] [place] [address]Dr. Lori Sutton ALT [Catalytic activity/Vol] 24 U/L Normal 14-59 [facility] Comment on above: Performed By: #### B FAN RUNNER, GERRY, CMP ####[facility] [address] [place] [address]Dr. Lori Sutton Anion gap [Moles/Vol] 12.0 mmol/L Normal Th e [facility] Comment on above: Performed By: #### B FAN RUNNER, GERRY, CMP ####[facility] [address] [place], [place] [address]Dr. Lori Sutton AST [Catalytic activity/Vol] 25 U/L Normal 15-37 [facility] Comment on above: Performed By: #### B FAN RUNNER, GERRY, CMP ####[facility] [address] [place], [place] [address]Dr. Lori Sutton Bilirubin [Mass/Vol] 0.8 mg/dL Normal 0.2-1.0 [facility] Comment on above: Performed By: #### B FAN RUNNER, GERRY, CMP ####[facility] [address] [place], [place] [address]Dr. Lori Sutton Calcium [Mass/Vol] 9.2 mg/dL Normal 8.5-10.1 [facility] Comment on above: Performed By: #### B FAN RUNNER, GERRY, CMP ####[facility] [address] [place], [place] [address]Dr. Lori Sutton Chloride [Moles/Vol] 107 mmol/L Normal 98-107 [facility] Comment on above: Performed By: #### B FAN RUNNER, GERRY, CMP ####[facility] [address] [place], [place] [address]Dr. Lori Sutton CO2 [Moles/Vol] 28.6 mmol/L Normal 21.0-32.0 [facility] Comment on above: Performed By: #### B FAN RUNNER, GERRY, CMP ####[facility] [address] [place] [address]Dr. Lori Sutton Creatinine [Mass/Vol] 1.08 mg/dL Critically high 0.55-1.02 [facility] Comment on above: Performed By: #### B FAN RUNNER, GERRY, CMP ####[facility] [address] [place], [place] [address]Dr. Lori Sutton EGFR-AF SERBIAN 59 mL/min/1.73m2 Critically low >=60 [facility] Comment on above: Performed By: #### B FAN RUNNER, GERRY, CMP ####[facility] [address] [place], [place] [address]Dr. Lori Sutton EGFR-NON AF SERBIAN 49 mL/min/1.73m2 Critically low >=60 [facility] Comment on above: Performed By: #### B FAN RUNNER, GERRY, CMP ####[facility] [address] [place], [place] [address]Dr. Lori [place] Globulin (S) [Mass/Vol] 3.2 g/dL Normal [facility] Comment on above: Performed By: #### B FAN RUNNER, GERRY, CMP ####[facility] [address] [place], [place] [address]Dr. Lori [place] Glucose [Mass/Vol] 103 mg/dL Normal 74-106 [facility] Comment on above: Performed By: #### B FAN RUNNER, GERRY, CMP ####[facility] [address] [place], [place] [address]Dr. Lori Sutton Potassium [Moles/Vol] 4.6 mmol/L Normal 3.5-5.1 [facility] Comment on above: Performed By: #### B FAN RUNNER, GERRY, CMP ####[facility] [address] [place], [place] [address]Dr. Lori Sutton Protein [Mass/Vol] 7.1 g/dL Normal 6.4-8.2 [facility] Comment on above: Performed By: #### B FAN RUNNER, GERRY, CMP ####[facility] [address] [place], [place] [address]Dr. Lori Sutton Sodium [Moles/Vol] 143 mmol/L Normal 136-145 [facility] Comment on above: Performed By: #### B FAN RUNNER, GERRY, CMP ####[facility] [address] [place], [place] [address]Ng. Lori Sutton Urea nitrogen [Mass/Vol] 29.0 mg/dL Critically high 7.0-18.0 [facility] Comment on above: Performed By: #### B FAN RUNNER, GERRY, CMP ####[facility] [address] [place], [place] [address]On. Lori Sutton Urea nitrogen/Creatinine [Mass ratio] 26.9 mg/mg Normal [facility] Comment on above: Performed By: #### B FAN RUNNER, GERRY, CMP ####[facility] [address] [place], [place] [address]Xv. Lori Sutton XR CHEST 2 Von 01-02-2023 XR CHEST 2 V EXAM: XR CHEST 2 V HISTORY: Dyspnea for the past month which is worsening. COMPARISON: 01/11/2022 TECHNIQUE: Upright PA and lateral chest x-ray FINDINGS: The heart is at the upper limits of normal in size. No acute infiltrate, effusion or pneumothorax is identified. Focal eventration of the right hemidiaphragm is noted. The left-sided pacemaker remains in place. Mild diffuse osteopenia is noted. There is a small sliding-type hiatal hernia present. IMPRESSION: No acute infiltrate or evidence of cardiac decompensation. The overall appearance of the chest has not changed significantly. Electronically authenticated by: ARI LEVY Date: 2023-01-02 12:33 Normal [facility] Office Visit (Cardiology)on 12-25-2022 Follow-up visit Diagnoses/Problems Assessed Pacemaker (V45.01) (Z95.0) Persistent atrial fibrillation (427.31) (I48.19) Diastolic heart failure (428.30) (I50.30) Low left ventricular ejection fraction (794.30) (R94.30) Chief Complaint LESA GOLDEN is being seen for a cardiovascular evaluation of atrial fibrillation. Adult Risk Screening There are no spiritual/cultural practices/values/needs that are important to know Initial Fall Risk Screening: LESA has not fallen in the last 6 months. Her fall did not result in injury. LESA does not have a fear of falling. She does not need assistance with sitting, standing or walking. Does not need assistance walking in her home. She does not need assistance in an unfamiliar setting. The patient is not using an assistive device. Living Will. Living Will: No living will on file. Healthcare POA: No healthcare proxy on file. Declaration of Mental Health Treatment: No mental health treatment on file. Tobacco Screening: Has not used tobacco in the past 6 months. Has not tried to quit or thought about quitting tobacco. Domestic Violence Screen: Does not feel threatened or abused physically, emotionally or sexually. Do you feel UNSAFE? The patient feels safe in the home. Depression/Suicide Screening: During the past 2 weeks, the patient has not felt down, depressed or hopeless. During the past 2 weeks, the patient has not felt little interest or pleasure in doing things. She does not have a risk of suicide. She has not had thoughts of harming others. Single alcohol screening question: In the past year the patient has had 5 or more drinks (men) or 4 or more drinks (women)? 0 time(s). Single substance abuse screening question: In the past year the patient has used a recreational drug or used a prescription drug for non-medical reasons? 0 time(s). Nutrition Screening: In the past month, there was not a day when I or anyone in my family went hungry because there was not enough food. Patient Education: The patient denies that they or the person with them has problems with hearing, speaking, seeing, moving around or learning The patient is comfortable filling out medical forms. History of Present Illness Lesa Golden is an 82 y/o female referred by Dr Mac for evaluation of AF. PMH includes HTN, HLD, HF, SSS s/p PPG implant, CKD, obesity and AF. Treatment of her AF includes Amiodarone (d/c?d for concerns of terminal operations manager side effects), tikosyn (prolonged OTc), sotalol and DCCV (09/2022). Symptoms of her AF include fatigue and BRAY. Pt follows with Dr Stover for management of her AF. Pt has previously been on Amio but was concerned about terminal operations manager side effects. She was then put on Tikosyn but did not tolerate d/t a prolonged QTc. Pt has tolerated low dose sotalol 80 mg BID but has had break through episodes of symptomatic AF. Pt is currently managed on Xarelto (15 mg d/t renal function) and Sotalol. Pt presents today to discuss AF ablation for management of recurrent AF despite AAD?s. TODAY'S ECG: NOT CLEAR BUT SUGGESTIVE OF ATYPICAL A FLUTTER WITH 2:1 AV CONDUCTION @ 109 bpm Echo 08/2022 ([facility] ? [facility]): LVEF 40%, moderate anteroseptal hypokinesis with wall motion suggestive of conduction abnormality, LA mildly dilated, trace MR AND TR Echo 06/2021: EF 45%, severe anteroseptal hypokinesis, mild-mod DD, LA mildly dilated, mild-mod MR, mild TR, mild-mod pHTN Active Problems Problems Anticoagulated (V58.61) (Z79.01) Class 1 obesity with body mass index (BMI) of 32.0 to 32.9 in adult (278.00,V85.32) (E66.9,Z68.32) Diastolic heart failure (428.30) (I50.30) Dyspnea (786.09) (R06.00) Essential hypertension, benign (401.1) (I10) Gallstones (574.20) (K80.20) High risk medication use (V58.69) (Z79.899) Hyperlipemia (272.4) (E78.5) Never a smoker Pacemaker (V45.01) (Z95.0) Persistent atrial fibrillation (427.31) (I48.19) 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 (427.81) (I49.5) Sinus bradycardia (427.89) (R00.1) Stage 3a chronic kidney disease (585.3) (N18.31) Surgical History Problems History of Appendectomy History of Foot surgery History of Hernia repair History of Hysterectomy History of Pacemaker insertion Current Meds Medication NameInstruction Atorvastatin Calcium 40 MG Oral TabletTAKE 1 TABLET DAILY. dilTIAZem HCl ER Coated Beads 120 MG Oral Capsule Extended Release 24 HourTAKE 1 CAPSULE ONCE DAILY. Escitalopram Oxalate 10 MG Oral TabletTAKE 1 TABLET DAILY. Hair Skin AND Nails Gummies CHEWTake 1 tablet daily Multi Vitamin TABSTAKE 1 TABLET DAILY. rOPINIRole HCl - 1 MG Oral TabletTAKE 1 TABLET AT BEDTIME. Sotalol HCl - 80 MG Oral TabletTAKE 1 TABLET BY MOUTH TWICE DAILY Tylenol Extra Strength 500 MG TABSTAKE 1 TABLET EVERY 4 TO 6 HOURS NEEDED. Xarelto 15 MG Oral TabletTAKE 1 TABLET BY MOUTH EVERYDAY AT BEDTIME Allergies Medication fentanyl Allergy; STROKE; Recorded By: Ching Cruz; 07/26/2021 2:29:04 PM S (more content not included)... Normal [facility] Alkaline phosphatase [Enzyma tic activity/volume] in Serum or PlasmaOrdered By: Wilbur Watson on 11-27-2022 ALP [Catalytic activity/Vol] 67 U/L 34-104 [facility] Amylase [Enzymatic activity/ volume] in Serum or PlasmaOrdered By: Wilbur Watson on 11-27-2022 Amylase [Catalytic activity/Vol] 24 U/L 29-103 [facility] Bilirubin.direct [Mass/volum e] in Serum or PlasmaOrdered By: Wilbur Watson on 11-27-2022 Bilirubin.direct [Mass/Vol] 0.20 mg/dL 0.03-0.18 [facility] Bilirubin.total [Mass/volume ] in Serum or PlasmaOrdered By: Wilbur Watson on 11-27-2022 Bilirubin [Mass/Vol] 0.8 mg/dL 0.3-1.0 [facility] Lipase [Enzymatic activity/v olume] in Serum or PlasmaOrdered By: Wilbur Watson on 11-27-2022 Lipase [Catalytic activity/Vol] 31.0 U/L 11.0-82.0 [facility] Serum or plasma non-glucuron idated bilirubin measurement (mass/volume)Ordered By: Wilbur Watson on 11-27-2022 Bilirubin.indirect [Mass/Vol] 0.6 mg/dL [facility] Basophils Auto (Bld) [#/Vol] Ordered By: Wilbur Watson on 11-20-2022 Basophils (Bld) [#/Vol] 0.1 10*3/uL 0.0-0.2 [facility] Basophils/100 WBC Auto (Bld) Ordered By: Wilbur Watson on 11-20-2022 Basophils/100 WBC (Bld) 0.9 % . [facility] Calcium [Mass/volume] in Ser um or PlasmaOrdered By: Wilbur Watson on 11-20-2022 Calcium [Mass/Vol] 9.5 mg/dL 8.6-10.[address] [facility] Carbon dioxide, total [Moles /volume] in Serum or PlasmaOrdered By: Wilbur Watson on 11-20-2022 CO2 [Moles/Vol] 25.5 mmol/L 21.0-31.0 [facility] Chloride [Moles/volume] in S vaughn or PlasmaOrdered By: Wilbur Watson on 11-20-2022 Chloride [Moles/Vol] 107 mmol/L 98-107 [facility] Creatinine [Mass/volume] in Serum or PlasmaOrdered By: Wilbur Watson on 11-20-2022 Creatinine [Mass/Vol] 1.08 mg/dL 0.60-1.20 [facility] Eosinophils Auto (Bld) [#/Vo l]Ordered By: Wilbur Watson on 11-20-2022 Eosinophils (Bld) [#/Vol] 0.3 10*3/uL 0.0-0.45 [facility] Eosinophils/100 WBC Auto (Bl d)Ordered By: Wilbur Watson on 11-20-2022 Eosinophils/100 WBC (Bld) 3.6 % . [facility] Erythrocyte distribution wid th Auto (RBC) [Ratio]Ordered By: Wilbur Watson on 11-20-2022 Erythrocyte distribution width (RBC) [Ratio] 13.9 % 11.9-15.3 [facility] Glucose [Mass/volume] in Ser um or PlasmaOrdered By: Wilbur Watson on 11-20-2022 Glucose [Mass/Vol] 91 mg/dL 70-[address] [facility] Comment on above: ADA recommended refe rence rangeRandom Glucose Reference Range is dependent on time and content of last meal. Glucose of more than 200 mg/dL in a nonstressed, ambulatory subject supports the diagnosis of Diabetes Mellitus. Hematocrit Auto (Bld) [Volum e fraction]Ordered By: Wilbur Watson on 11-20-2022 Hematocrit (Bld) [Volume fraction] 46.1 % 34.0-46.4 [facility] Hemoglobin [Mass/volume] in BloodOrdered By: Wilbur Watson on 11-20-2022 Hemoglobin (Bld) [Mass/Vol] 15.2 g/dL 11.8-15.4 [facility] Leukocytes [#/volume] correc anne marie for nucleated erythrocytes in Blood by Automated counOrdered By: Wilbur Watson on 11-20-2022 WBC corrected for nucl RBC Auto (Bld) [#/Vol] 7.0 10*3/uL 3.8-11.6 [facility] Lymphocytes Auto (Bld) [#/Vo l]Ordered By: Wilbur Watson on 11-20-2022 Lymphocytes (Bld) [#/Vol] 1.6 10*3/uL 1.00-4.8 [facility] Lymphocytes/100 WBC Auto (Bl d)Ordered By: Wilbur Watson on 11-20-2022 Lymphocytes/100 WBC (Bld) 23.1 % . [facility] MCH Auto (RBC) [Entitic mass ]Ordered By: Wilbur Watson on 11-20-2022 MCH (RBC) [Entitic mass] 29.4 pg 24.7-34.3 [facility] MCHC Auto (RBC) [Mass/Vol]Or dered By: Wilbur Watson on 11-20-2022 MCHC (RBC) [Mass/Vol] 33.0 g/dL 32.0-35.0 [facility] MCV Auto (RBC) [Entitic vol] Ordered By: Wilbur Watson on 11-20-2022 MCV (RBC) [Entitic vol] 88.9 fL 80-100 [facility] Monocytes Auto (Bld) [#/Vol] Ordered By: Wilbur Watson on 11-20-2022 Monocytes (Bld) [#/Vol] 0.5 10*3/uL 0.0-0.8 [facility] Monocytes/100 WBC Auto (Bld) Ordered By: Wilbur Watson on 11-20-2022 Monocytes/100 WBC (Bld) 7.4 % . [facility] Neutrophils Auto (Bld) [#/Vo l]Ordered By: Wilbur Watson on 11-20-2022 Neutrophils (Bld) [#/Vol] 4.6 10*3/uL 1.8-7.7 [facility] Neutrophils/100 WBC Auto (Bl d)Ordered By: Wilbur Watson on 11-20-2022 Neutrophils/100 WBC (Bld) 65.0 % . [facility] No Panel InformationOrdered By: Wilbur Watson on 11-20-2022 Estimated GFR (CKD-EPI) 51.927 mL/Min [facility] Creatinine Clearance (Chem N/A [facility] Nucleated erythrocytes [Pres ence] in Blood by Automated countOrdered By: Wilbur Watson on 11-20-2022 Nucleated RBC Auto Ql (Bld) 0.1 /100{WBC} 0-0.5 [facility] Platelet mean volume Auto (B ld) [Entitic vol]Ordered By: Wilbur Watson on 11-20-2022 Platelet mean volume (Bld) [Entitic vol] 9.1 fL 6.3-10.7 [facility] Platelets Auto (Bld) [#/Vol] Ordered By: Wilbur Watson on 11-20-2022 Platelets (Bld) [#/Vol] 220 10*3/uL 150-450 [facility] Potassium [Moles/volume] in Serum or PlasmaOrdered By: Wilbur Watson on 11-20-2022 Potassium [Moles/Vol] 4.5 mmol/L 3.5-5.1 [facility] RBC Auto (Bld) [#/Vol]Ordere d By: Wilbur Watson on 11-20-2022 RBC (Bld) [#/Vol] 5.18 10*6/uL 3.60-5.00 [facility] Serum or plasma anion gap de terminationOrdered By: Wilbur Watson on 11-20-2022 Anion gap [Moles/Vol] 12.0 mmol/L 6.0-15.0 [facility] Sodium [Moles/volume] in Ser um or PlasmaOrdered By: Wilbur Watson on 11-20-2022 Sodium [Moles/Vol] 140 mmol/L 136-[address] [facility] Urea nitrogen [Mass/volume] in Serum or PlasmaOrdered By: Wilbur Watson on 11-20-2022 Urea nitrogen [Mass/Vol] 31 mg/dL 7-25 [facility] WBC Auto (Bld) [#/Vol]Ordere d By: Wilbur Watson on 11-20-2022 WBC (Bld) [#/Vol] 7.0 10*3/uL 3.8-11.[address] [facility] MG MAMM SCREEN 3D MARYBETH CADon 10-16-2022 MG MAMM SCREEN 3D MARYBETH CAD Patient: LESA GOLDEN Exam Date: 10/16/2022 : 1940 Gender:F Ordering : DR CHESTER العلي D.O. Admission #: [id number] Family : Order #: [id number] CLICK HERE TO VIEW EXAM RADIOLOGY REPORT PROCEDURE: MAMMOGRAM SCREENING 3D BILATERAL CAD COMPARISON: MG MAMM SCREEN MARYBETH W CAD, 09/17/2018. MG MAMM SCREEN 3D MARYBETH CAD, 10/14/2021. INDICATIONS: Screening mammography Calculator Name NCI Breast Cancer Risk Assessment Tool 5 Year Breast Cancer Risk 1.50% Lifetime Breast Cancer Risk 2.30% Personal Breast Cancer No Personal Ovarian Cancer No Treatments None Family Cancers Son with sarcoma cancer at age 43. LOCATION: [facility] BREAST COMPOSITION: Extremely dense, which lowers the sensitivity of mammography. FINDINGS: DIAGNOSTIC CATEGORY 2--BENIGN FINDING. NO CHANGE FROM COMPARISON. Scattered benign-appearing nodules are present. Scattered benign-appearing calcifications are present. Scattered benign-appearing lymph nodes are present. RIGHT BREAST: No significant suspicious finding. LEFT BREAST: No significant suspicious finding. Pacemaker partially obscures the axillary tail. RECOMMENDATIONS: ROUTINE MAMMOGRAM AND CLINICAL EVALUATION IN 12 MONTHS. PLEASE NOTE: A NORMAL MAMMOGRAM DOES NOT EXCLUDE THE POSSIBILITY OF BREAST CANCER. A CLINICALLY SUSPICIOUS PALPABLE LUMP SHOULD BE BIOPSIED. 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 (427.81) (I49.5) Sinus bradycardia (427.89) (R00.1) Stage 3a chronic kidney disease (585.3) (N18.31) Class 1 obesity with body mass index (BMI) of 32.0 to 32.9 in adult (278.00,V85.32) (E66.9,Z68.32) Gallstones (574.20) (K80.20) Orders Class 1 obesity with body mass index (BMI) of 32.0 to 32.9 in adult Healthy Weight Tips; Status:Complete - Retrospective Authorization; Done: [id number] Some eating tips that can help you lose weight.; Status:Complete - Retrospective Authorization; Done: [id number] Gallstones General Surgery Referral Evaluation and Treatment Evaluate AND Treat Status: Hold For - Scheduling,Retrospective Authorization Requested for: [id number] Persistent atrial fibrillation Renew: Sotalol HCl - 80 MG Oral Tablet (Betapace); TAKE 1 TABLET BY MOUTH TWICE DAILY IO EKG Electrocardiogram- 12 Lead; Status:Complete; Done: [id number] SocHx: Never a smoker Tobacco Use Screening; Status:Complete; Done: [id number] Patient Instructions Please bring all medicines, vitamins, and herbal supplements with you when you come to the office. Prescriptions will not be filled unless you are compliant with your follow up appointments or have a follow up appointment scheduled as per instruction of your physician. Refills should be requested at the time of your visit. Pacemaker/Defibrillator Routine Follow-up. Referral to Dr. Watson to evaluate. Follow up in 3 months Chief Complaint LESA GOLDEN is being seen for [facility] [place] 09/2022. History of Present Illness Patient is here for follow-up care management for persistent atrial fibrillation, tachybradycardia syndrome and recent presentation with heart failure and shortness of breath. She was in the hospital on 2 occasion. She had been on amiodarone in the past but which was discontinued because of concern about long-term side effect. Her initial presentation with atrial fibrillation was coincided with congestive heart failure. She did not tolerate dofetilide due to prolonged QTc [place]. I initially I recommended heart rate control and long-term anticoagulation presented again with heart failure and following lengthy discussion we tried sotalol and this was so far effective in maintaining sinus rhythm following her cardioversion. The patient complains of symptoms of fatigue and tiredness in addition she had some symptoms of fullness in the right abdominal bloating. She has been diagnosed in the past with cholelithiasis. Assessment 1. Persistent atrial fibrillation with clinical picture of tachybradycardia syndrome. She is status post permanent pacemaker implantation recently remain in sinus rhythm off amiodarone which we discontinued because of concern about long-term side effect. She did not tolerate dofetilide but was able to tolerate .sotalol. QTc interval is 481 ms. She remained in normal sinus rhythm she describes symptoms of fatigue and tiredness 2. Long-term anticoagulation with Xarelto which dose due to renal dysfunction 3. History of nephrolithiasis 4. Hypertension controlled 5. Hyperlipidemia with mild weight gain recently 6. Borderline overweight 7. Patient describes shortness of breath without evidence of volume overload stable unchanged from before 8. Had complaint of recurrent nausea and vomiting she was diagnosed with esophageal stricture with concern liver cirrhosis followed by GI in the past 9. The bloating and abdominal pain with previous history of cholelithiasis Plan 1. I had with the patient the results of her recent l hospitalization record. 2. Risk, benefit and alternative anticoagulation and sotalol reviewed patient understood and agreed 3. Continue to monitor for arrhythmia. We discussed referral for ablation but the patient declined for now 4. Follow-up in 3 month with an EKG 5. Continue pacemaker follow-up 6. I continue to encourage the patient to exercise and try to lose some weight. I advised her to restrict her salt intake 7. I for her back for surgery considering her symptoms of bloating and abdominal discomfort Current Meds Medication NameInstruction Atorvastatin Calcium 40 MG Oral TabletTAKE 1 TABLET DAILY. Betapace 80 MG Oral TabletTAKE 1 TABLET BY MOUTH TWICE DAILY Escitalopram Oxalate 10 MG Oral TabletTAKE 1 TABLET DAILY. Hair Skin AND Nails Gummies CHEWTake 1 tablet daily Multi Vitamin TABSTAKE 1 TABLET DAILY. rOPINIRole HCl - 2 MG Oral TabletTAKE 1 TABLET AT BEDTIME. Tylenol Extra Strength 500 MG TABSTAKE 1 TABLET EVERY 4 TO 6 HOURS NEEDED. Xarelto 15 MG Oral TabletTAKE 1 TABLET BY MOUTH EVERYDAY AT BEDTIME Allergies Medication fentany (more content not included)... Normal [facility] Tobacco Screening.on 023 Fall risk assessment a) No falls within the last year -[facility]Sandu evelin 250 DO Work Phone: Tobacco use status [facility] b) No -[facility]u evelin 250 DO Work Phone: Tobacco Screening. Yes [facility]-Sandu evelin 250 DO Work Phone: Tobacco Screening.on Fall risk assessment a) No falls within the last year -[facility] evelin 250 DO Work Phone: Tobacco use status [facility] b) No -[facility]u evelin 250 DO Work Phone: Basophils Auto (Bld) [#/Vol] Ordered By: Sam Dukes on 09-21-2022 Basophils (Bld) [#/Vol] 0.0 10*3/uL 0.0-0.2 [facility] Basophils/100 WBC Auto (Bld) Ordered By: Sam Dukes on 09-21-2022 Basophils/100 WBC (Bld) 0.7 % . [facility] Creatine kinase [Enzymatic a ctivity/volume] in Serum or PlasmaOrdered By: Debbie Mac on 09-21-2022 CK [Catalytic activity/Vol] 76 U/L 22-269 [facility] Creatinine and Glomerular fi ltration rate.predicted panel (S/P/Bld)Ordered By: Sam Dukes on 09-21-2022 Creatinine [Mass/Vol] 1.08 mg/dL 0.44-1.03 [facility] Eosinophils Auto (Bld) [#/Vo l]Ordered By: Sam Dukes on 09-21-2022 Eosinophils (Bld) [#/Vol] 0.3 10*3/uL 0.0-0.45 [facility] Eosinophils/100 WBC Auto (Bl d)Ordered By: Sam Dukes on 09-21-2022 Eosinophils/100 WBC (Bld) 4.6 % . [facility] Erythrocyte distribution wid th Auto (RBC) [Ratio]Ordered By: Sam Dukes on 09-21-2022 Erythrocyte distribution width (RBC) [Ratio] 13.5 % 11.9-15.3 [facility] Estimated glomerular filtrat ion rate (GFR) non- AmericanOrdered By: Sam Dukes on 09-21-2022 GFR/1.73 sq M.predicted among non-blacks MDRD (S/P/Bld) [Vol rate/Area] 49 mL/Min [facility] Hematocrit Auto (Bld) [Volum e fraction]Ordered By: Sam Dukes on 09-21-2022 Hematocrit (Bld) [Volume fraction] 39.6 % 34.0-46.4 [facility] Hemoglobin [Mass/volume] in BloodOrdered By: Sam Dukes on 09-21-2022 Hemoglobin (Bld) [Mass/Vol] 13.0 g/dL 11.8-15.4 [facility] - Chemistry and C hemistry - challengeOrdered By: Debbie Mac on 09-21-2022 Natriuretic peptide B (Bld) [Mass/Vol] 203.0 pg/mL 5-100 [facility] - Chemistry and C hemistry - challengeOrdered By: Sam Dukes on 09-21-2022 Magnesium [Mass/Vol] 1.8 mg/dL 1.6-2.6 [facility] Leukocytes [#/volume] correc anne marie for nucleated erythrocytes in Blood by Automated counOrdered By: Sam Dukes on 09-21-2022 WBC corrected for nucl RBC Auto (Bld) [#/Vol] 5.7 10*3/uL 3.8-11.6 [facility] Lymphocytes Auto (Bld) [#/Vo l]Ordered By: Sam Dukes on 09-21-2022 Lymphocytes (Bld) [#/Vol] 1.1 10*3/uL 1.00-4.8 [facility] Lymphocytes/100 WBC Auto (Bl d)Ordered By: Sam Dukes on 09-21-2022 Lymphocytes/100 WBC (Bld) 18.9 % . [facility] MCH Auto (RBC) [Entitic mass ]Ordered By: Sam Dukes on 09-21-2022 MCH (RBC) [Entitic mass] 29.6 pg 24.7-34.3 [facility] MCHC Auto (RBC) [Mass/Vol]Or dered By: Sam Dukes on 09-21-2022 MCHC (RBC) [Mass/Vol] 32.9 g/dL 32.0-35.0 [facility] MCV Auto (RBC) [Entitic vol] Ordered By: Sam Dukes on 09-21-2022 MCV (RBC) [Entitic vol] 89.8 fL 80-100 [facility] Monocytes Auto (Bld) [#/Vol] Ordered By: Sam Dukes on 09-21-2022 Monocytes (Bld) [#/Vol] 0.4 10*3/uL 0.0-0.8 [facility] Monocytes/100 WBC Auto (Bld) Ordered By: Sam Dukes on 09-21-2022 Monocytes/100 WBC (Bld) 7.6 % . [facility] Neutrophils Auto (Bld) [#/Vo l]Ordered By: Sam Dukes on 09-21-2022 Neutrophils (Bld) [#/Vol] 3.9 10*3/uL 1.8-7.7 [facility] Neutrophils/100 WBC Auto (Bl d)Ordered By: Sam Dukes on 09-21-2022 Neutrophils/100 WBC (Bld) 68.2 % . [facility] No Panel InformationOrdered By: Sam Dukes on 09-21-2022 Estimated GFR () 59 mL/Min [facility] Comment on above: GFR estimated refere nce range: According to KDOQI guidelines, <60 ml/min/1.73m2 is sufficient to diagnose a patient with chronic kidney disease. Pharmacy Creatinine Clearance (Chem 37.27 [facility] Nucleated erythrocytes [Pres ence] in Blood by Automated countOrdered By: Sam Dukes on 09-21-2022 Nucleated RBC Auto Ql (Bld) 0.0 /100{WBC} 0-0.5 [facility] Platelet mean volume Auto (B ld) [Entitic vol]Ordered By: Sam Dukes on 09-21-2022 Platelet mean volume (Bld) [Entitic vol] 9.5 fL 6.3-10.7 [facility] Platelets Auto (Bld) [#/Vol] Ordered By: Sam Dukes on 09-21-2022 Platelets (Bld) [#/Vol] 173 10*3/uL 150-450 [facility] RBC Auto (Bld) [#/Vol]Ordere d By: aSm Dukes on 09-21-2022 RBC (Bld) [#/Vol] 4.41 10*6/uL 3.60-5.00 [facility] Serum or plasma anion gap de terminationOrdered By: Sam Dukes on 09-21-2022 Anion gap [Moles/Vol] 11.0 mmol/L 6.0-15.0 [facility] Serum or plasma calcium mitch urement (mass/volume)Ordered By: aSm Dukes on 09-21-2022 Calcium [Mass/Vol] 8.6 mg/dL 8.2-10.[address] [facility] Serum or plasma chloride carlitos surement (moles/volume)Ordered By: Sam Dukes on 09-21-2022 Chloride [Moles/Vol] 107 mmol/L 95-114 [facility] Serum or plasma creatine kin ase MB (CKMB)/total creatine kinase (CK) ratio by calculaOrdered By: Debbie Mac on 09-21-2022 CK.MB Calc [Catalytic fraction] 2.5 % 0.00-2.50 [facility] Serum or plasma creatine kin ase MB measurement (mass/volume)Ordered By: Debbie Mac on 09-21-2022 CK.MB [Mass/Vol] 1.9 ng/mL 0.6-6.3 [facility] Serum or plasma glucose mitch urement (mass/volume)Ordered By: Sam Dukes on 09-21-2022 Glucose [Mass/Vol] 94 mg/dL 70-[address] [facility] Comment on above: ADA recommended refe rence rangeRandom Glucose Reference Range is dependent on time and content of last meal. Glucose of more than 200 mg/dL in a nonstressed, ambulatory subject supports the diagnosis of Diabetes Mellitus. Serum or plasma potassium me asurement (moles/volume)Ordered By: Sam Dukes on 09-21-2022 Potassium [Moles/Vol] 3.9 mmol/L 3.5-5.1 [facility] Serum or plasma sodium measu rement (moles/volume)Ordered By: Sam Dukes on 09-21-2022 Sodium [Moles/Vol] 137 mmol/L 136-[address] [facility] Serum or plasma total carbon dioxide measurement (moles/volume)Ordered By: Sam Dukes on 09-21-2022 CO2 [Moles/Vol] 22.9 mmol/L 22.0-30.0 [facility] Serum or plasma urea nitroge n measurement (mass/volume)Ordered By: Sam Dukes on 09-21-2022 Urea nitrogen [Mass/Vol] 18 mg/dL 9-23 [facility] Troponin I.cardiac [Mass/vol ume] in Serum or Plasma by High sensitivity methodOrdered By: Debbie Mac on 09-21-2022 Troponin I.cardiac High sensitivity method [Mass/Vol] 9 pg/mL 0-15 [facility] WBC Auto (Bld) [#/Vol]Ordere d By: Sam Dukes on 09-21-2022 WBC (Bld) [#/Vol] 5.7 10*3/uL 3.8-11.[address] [facility] Glucose Glucometer (BldC) [M ass/Vol]Ordered By: Sam Dukes on 09-19-2022 Glucose [Mass/Vol] 93 mg/dL [facility] Comment on above: Random Glucose Refer ence Range is dependent on time and content of last meal. Glucose of more than 200 mg/dL in a nonstressed, ambulatory subject supports the diagnosis of Diabetes Mellitus. No Panel InformationOrdered By: Sam Dukes on 09-19-2022 Bedside Glucose Comment Glu2: cleaned meter [facility] Activated partial thrombopla stin time (aPTT) in platelet poor plasma by coagulation aOrdered By: Indy Rolon on 09-17-2022 aPTT Coag (PPP) [Time] 40.4 s 25.1-36.5 [facility] Automated erythrocytes count in urine sediment (number/area)Ordered By: Indy Rolon on 01-29-2023 RBC Auto (Urine sed) [#/Area] 10-19 [HPF] 0-4 [facility] Automated leukocytes count i n urine sediment (number/area)Ordered By: Indy Rolon on 09-17-2022 WBC Auto (Urine sed) [#/Area] 20-49 [HPF] 0-4 [facility] Automated urine hyaline cast s count (number/volume)Ordered By: Indy Rolon on 09-17-2022 Hyaline casts Auto (U) [#/Vol] 3-4 [LPF] 0-1 [facility] Basophils Auto (Bld) [#/Vol] Ordered By: Indy Rolon on 09-17-2022 Basophils (Bld) [#/Vol] 0.0 10*3/uL 0.0-0.2 [facility] Basophils/100 WBC Auto (Bld) Ordered By: Indy Rolon on 09-17-2022 Basophils/100 WBC (Bld) 0.6 % . [facility] Bilirubin Test strip Ql (U)O rdered By: Indy Rolon on 09-17-2022 Bilirubin Ql (U) Negative Negative [facility] Body fluid albumin measureme nt (mass/volume)Ordered By: Indy Rolon on 09-17-2022 Albumin (Body fld) [Mass/Vol] 4.1 g/dL 3.2-5.5 [facility] Casts typing in urine sedime nt by light microscopyOrdered By: Indy Rolon on 09-17-2022 Casts LM Nom (Urine sed) None seen [LPF] None Seen [facility] Color Auto (U)Ordered By: Jordan Rolon on 09-17-2022 Color (U) Dark yellow Yellow [facility] Creatinine and Glomerular fi ltration rate.predicted panel (S/P/Bld)Ordered By: Indy Rolon on 09-17-2022 Creatinine [Mass/Vol] 1.23 mg/dL 0.44-1.03 [facility] Eosinophils Auto (Bld) [#/Vo l]Ordered By: Indy Rolon on 09-17-2022 Eosinophils (Bld) [#/Vol] 0.3 10*3/uL 0.0-0.45 [facility] Eosinophils/100 WBC Auto (Bl d)Ordered By: Indy Rolon on 09-17-2022 Eosinophils/100 WBC (Bld) 3.5 % . [facility] Erythrocyte distribution wid th Auto (RBC) [Ratio]Ordered By: Indy Rolon on 09-17-2022 Erythrocyte distribution width (RBC) [Ratio] 13.5 % 11.9-15.3 [facility] Estimated glomerular filtrat ion rate (GFR) non- AmericanOrdered By: Indy Rolon on 09-17-2022 GFR/1.73 sq M.predicted among non-blacks MDRD (S/P/Bld) [Vol rate/Area] 42 mL/Min [facility] Globulin Calc (S) [Mass/Vol] Ordered By: Indy Rolon on 09-17-2022 Globulin (S) [Mass/Vol] 2.2 g/dL [facility] Hematocrit Auto (Bld) [Volum e fraction]Ordered By: Indy Rolon on 09-17-2022 Hematocrit (Bld) [Volume fraction] 43.5 % 34.0-46.4 [facility] Hemoglobin [Mass/volume] in BloodOrdered By: Indy Rolon on 09-17-2022 Hemoglobin (Bld) [Mass/Vol] 14.4 g/dL 11.8-15.4 [facility] Ketones Auto test strip (U) [Mass/Vol]Ordered By: Indy Rolon on 09-17-2022 Ketones (U) [Mass/Vol] Trace Negative Fi [facility] Laboratory - Chemistry and C hemistry - challengeOrdered By: Indy Rolon on 09-17-2022 Magnesium [Mass/Vol] 2.1 mg/dL 1.6-2.6 [facility] Natriuretic peptide B (Bld) [Mass/Vol] 292.0 pg/mL 5-100 [facility] - CoagulationOrde red By: Indy Rolon on 09-17-2022 PT Coag (PPP) [Time] 23.4 s 9.0-12.9 [facility] Leukocytes [#/volume] correc anne marie for nucleated erythrocytes in Blood by Automated counOrdered By: Indy Rolon on 09-17-2022 WBC corrected for nucl RBC Auto (Bld) [#/Vol] 8.0 10*3/uL 3.8-11.6 [facility] Lymphocytes Auto (Bld) [#/Vo l]Ordered By: Indy Rolon on 09-17-2022 Lymphocytes (Bld) [#/Vol] 1.2 10*3/uL 1.00-4.8 [facility] Lymphocytes/100 WBC Auto (Bl d)Ordered By: Indy Rolon on 09-17-2022 Lymphocytes/100 WBC (Bld) 15.2 % . [facility] MCH Auto (RBC) [Entitic mass ]Ordered By: Indy Rolon on 09-17-2022 MCH (RBC) [Entitic mass] 30.1 pg 24.7-34.3 [facility] MCHC Auto (RBC) [Mass/Vol]Or dered By: Indy Rolon on 09-17-2022 MCHC (RBC) [Mass/Vol] 33.2 g/dL 32.0-35.0 [facility] MCV Auto (RBC) [Entitic vol] Ordered By: Indy Rolon on 09-17-2022 MCV (RBC) [Entitic vol] 90.6 fL 80-100 [facility] Monocyte distribution width [Entitic volume] in Blood by AutomatedOrdered By: Indy Rolon on 09-17-2022 Monocyte distribution width Auto (Bld) [Entitic vol] 19.67 % 0.00-20.00 [facility] Monocytes Auto (Bld) [#/Vol] Ordered By: Indy Rolon on 09-17-2022 Monocytes (Bld) [#/Vol] 0.6 10*3/uL 0.0-0.8 [facility] Monocytes/100 WBC Auto (Bld) Ordered By: Indy Rolon on 09-17-2022 Monocytes/100 WBC (Bld) 7.1 % . [facility] Neutrophils Auto (Bld) [#/Vo l]Ordered By: Indy Rolon on 09-17-2022 Neutrophils (Bld) [#/Vol] 5.9 10*3/uL 1.8-7.7 [facility] Neutrophils/100 WBC Auto (Bl d)Ordered By: Indy Rolon on 09-17-2022 Neutrophils/100 WBC (Bld) 73.6 % . [facility] Nitrite Test strip Ql (U)Ord ered By: Indy Rolon on 09-17-2022 Nitrite Ql (U) Negative Negative [facility] No Panel InformationOrdered By: Indy Rolon on 09-17-2022 Estimated GFR () 51 mL/Min [facility] Comment on above: GFR estimated refere nce range: According to KDOQI guidelines, <60 ml/min/1.73m2 is sufficient to diagnose a patient with chronic kidney disease. Pharmacy Creatinine Clearance (Chem N/A [facility] Nucleated erythrocytes [Pres ence] in Blood by Automated countOrdered By: Indy Rolon on 09-17-2022 Nucleated RBC Auto Ql (Bld) 0.3 /100{WBC} 0-0.5 [facility] Platelet mean volume Auto (B ld) [Entitic vol]Ordered By: Indy Rolon on 09-17-2022 Platelet mean volume (Bld) [Entitic vol] 9.4 fL 6.3-10.7 [facility] Platelet poor plasma interna tional normalized ratio (INR) by coagulation assay (relatOrdered By: Indy Rolon on 09-17-2022 INR Coag (PPP) [Relative time] 2.0 {INR} [facility] Comment on above: INR Therapeutic Rang e A) Pre- and Peroperative OAT started two weeks before surgery. NOT HIP SURGERY: 1.5 - 2.5 HIP SURGERY: 2 - 3B) Primary and secondary prevention of venous THROMBOSIS: 2 - 3C) Active venous thrombosis, pulmonary embolismand prevention of recurrent venous thrombosis: 2 - 3D) Prevention of arterial thromboembolismincluding patients with mechanical heart valves: 3 - 4.5 Platelets Auto (Bld) [#/Vol] Ordered By: Indy Rolon on 09-17-2022 Platelets (Bld) [#/Vol] 203 10*3/uL 150-450 [facility] Protein Auto test strip (U) [Mass/Vol]Ordered By: Indy Rolon on 09-17-2022 Protein (U) [Mass/Vol] Trace mg/dL Negative F [facility] Protein [Mass/volume] in Ser um or PlasmaOrdered By: Indy Rolon on 09-17-2022 Protein [Mass/Vol] 6.3 g/dL 6.1-7.[address] [facility] RBC Auto (Bld) [#/Vol]Ordere d By: Indy Rolon on 09-17-2022 RBC (Bld) [#/Vol] 4.80 10*6/uL 3.60-5.00 [facility] Serum or plasma alanine mahmood otransferase measurement without P-5'-P (enzymatic activiOrdered By: Indy Rolon on 09-17-2022 ALT No additional P-5'-P [Catalytic activity/Vol] 20 U/L 10-60 [facility] Serum or plasma albumin/glob ulin mass ratioOrdered By: Indy Rolon on 09-17-2022 Albumin/Globulin [Mass ratio] 1.9 {ratio} [facility] Serum or plasma alkaline mia sphatase measurement (enzymatic activity/volume)Ordered By: Indy Rolon on 09-17-2022 ALP [Catalytic activity/Vol] 79 U/L 32-92 [facility] Serum or plasma anion gap de terminationOrdered By: Indy Rolon on 09-17-2022 Anion gap [Moles/Vol] 14.2 mmol/L 6.0-15.0 [facility] Serum or plasma aspartate am inotransferase measurement (enzymatic activity/volume)Ordered By: Indy Rolon on 09-17-2022 AST [Catalytic activity/Vol] 28 U/L 10-42 [facility] Serum or plasma calcium mitch urement (mass/volume)Ordered By: Indy Rolon on 09-17-2022 Calcium [Mass/Vol] 9.4 mg/dL 8.2-10.[address] [facility] Serum or plasma chloride carlitos surement (moles/volume)Ordered By: Indy Rolon on 09-17-2022 Chloride [Moles/Vol] 103 mmol/L 95-114 [facility] Serum or plasma glucose mitch urement (mass/volume)Ordered By: Indy Rolon on 09-17-2022 Glucose [Mass/Vol] 94 mg/dL 70-[address] [facility] Comment on above: ADA recommended refe rence rangeRandom Glucose Reference Range is dependent on time and content of last meal. Glucose of more than 200 mg/dL in a nonstressed, ambulatory subject supports the diagnosis of Diabetes Mellitus. Serum or plasma potassium me asurement (moles/volume)Ordered By: Indy Rolon on 09-17-2022 Potassium [Moles/Vol] 4.7 mmol/L 3.5-5.1 [facility] Serum or plasma sodium measu rement (moles/volume)Ordered By: Indy Rolon on 09-17-2022 Sodium [Moles/Vol] 138 mmol/L 136-[address] [facility] Serum or plasma total biliru bin measurement (mass/volume)Ordered By: Indy Rolon on 09-17-2022 Bilirubin [Mass/Vol] 1.1 mg/dL 0.3-1.2 [facility] Serum or plasma total carbon dioxide measurement (moles/volume)Ordered By: Indy Rolon on 09-17-2022 CO2 [Moles/Vol] 25.5 mmol/L 22.0-30.0 [facility] Serum or plasma urea nitroge n measurement (mass/volume)Ordered By: Indy Rolon on 09-17-2022 Urea nitrogen [Mass/Vol] 24 mg/dL 9-23 [facility] Specific gravity Auto test s trip (U) [Rel density]Ordered By: Indy Rolon on 09-17-2022 Specific gravity (U) [Rel density] 1.024 1.001-1.03 0 [facility] Squamous epithelial cells de tection in urine sediment by light microscopyOrdered By: Indy Rolon on 09-17-2022 Epithelial cells.squamous LM Ql (Urine sed) 10-19 [HPF] 0-2 [facility] Troponin I.cardiac [Mass/vol ume] in Serum or Plasma by High sensitivity methodOrdered By: Indy Rolon on 09-17-2022 Troponin I.cardiac High sensitivity method [Mass/Vol] 8 pg/mL 0-15 [facility] Urine bacteria detection by automated methodOrdered By: Indy Rolon on 09-17-2022 Bacteria Auto Ql (U) 3+ None Seen [facility] Urine clarity by refractomet ry automatedOrdered By: Indy Rolon on 09-17-2022 Clarity Refractometry automated (U) Cloudy Clear [facility] Urine culture routineOrdered By: Indy Rolon on 09-17-2022 Bacteria identified Cx Nom (U) Escherichia coli [facility] Bacteria identified Cx Nom (U) Escherichia coli [facility] Urine glucose measurement by automated test strip (mass/volume)Ordered By: Indy Rolon on 09-17-2022 Glucose Auto test strip (U) [Mass/Vol] Normal mg/dL Normal [facility] Urine hemoglobin detection b y automated test stripOrdered By: Indy Rolon on 09-17-2022 Hemoglobin Auto test strip Ql (U) Trace Negative [facility] Urine leukocyte esterase det ection by automated test stripOrdered By: Indy Rolon on 09-17-2022 Leukocyte esterase Auto test strip Ql (U) 3+ Negative [facility] Urobilinogen Auto test strip (U) [Mass/Vol]Ordered By: Indy Rolon on 09-17-2022 Urobilinogen (U) [Mass/Vol] Normal mg/dL Normal [facility] WBC Auto (Bld) [#/Vol]Ordere d By: Indy Rolon on 09-17-2022 WBC (Bld) [#/Vol] 8.0 10*3/uL 3.8-11.[address] [facility] Yeast detection in urine sed iment by light microscopyOrdered By: Indy Rolon on 09-17-2022 Yeast LM Ql (Urine sed) Rare [HPF] None Seen [facility] pH Auto test strip (U)Ordere d By: Indy Rolon on 09-17-2022 pH (U) 5.5 [pH] 5.0-9.0 [facility] Basophils Auto (Bld) [#/Vol] Ordered By: Jay Ceja on 09-05-2022 Basophils (Bld) [#/Vol] 0.0 10*3/uL 0.0-0.2 [facility] Basophils/100 WBC Auto (Bld) Ordered By: Jay Ceja on 09-05-2022 Basophils/100 WBC (Bld) 0.9 % . [facility] Creatinine and Glomerular fi ltration rate.predicted panel (S/P/Bld)Ordered By: Jay Ceja on 09-05-2022 Creatinine [Mass/Vol] 1.57 mg/dL 0.44-1.03 [facility] Eosinophils Auto (Bld) [#/Vo l]Ordered By: Jay Ceja on 09-05-2022 Eosinophils (Bld) [#/Vol] 0.3 10*3/uL 0.0-0.45 [facility] Eosinophils/100 WBC Auto (Bl d)Ordered By: Jay Ceja on 09-05-2022 Eosinophils/100 WBC (Bld) 4.7 % . [facility] Erythrocyte distribution wid th Auto (RBC) [Ratio]Ordered By: Jay Ceja on 09-05-2022 Erythrocyte distribution width (RBC) [Ratio] 13.8 % 11.9-15.3 [facility] Estimated glomerular filtrat ion rate (GFR) non- AmericanOrdered By: Jay Ceja on 09-05-2022 GFR/1.73 sq M.predicted among non-blacks MDRD (S/P/Bld) [Vol rate/Area] 32 mL/Min [facility] Hematocrit Auto (Bld) [Volum e fraction]Ordered By: Jay Ceja on 09-05-2022 Hematocrit (Bld) [Volume fraction] 42.4 % 34.0-46.4 [facility] Hemoglobin [Mass/volume] in BloodOrdered By: Jay Ceja on 09-05-2022 Hemoglobin (Bld) [Mass/Vol] 14.0 g/dL 11.8-15.4 [facility] Leukocytes [#/volume] correc anne marie for nucleated erythrocytes in Blood by Automated counOrdered By: Jay Ceja on 09-05-2022 WBC corrected for nucl RBC Auto (Bld) [#/Vol] 5.6 10*3/uL 3.8-11.6 [facility] Lymphocytes Auto (Bld) [#/Vo l]Ordered By: Jay Ceja on 09-05-2022 Lymphocytes (Bld) [#/Vol] 1.4 10*3/uL 1.00-4.8 [facility] Lymphocytes/100 WBC Auto (Bl d)Ordered By: Jay Ceja on 09-05-2022 Lymphocytes/100 WBC (Bld) 25.6 % . [facility] MCH Auto (RBC) [Entitic mass ]Ordered By: Jay Ceja on 09-05-2022 MCH (RBC) [Entitic mass] 29.7 pg 24.7-34.3 [facility] MCHC Auto (RBC) [Mass/Vol]Or dered By: Jay Ceja on 09-05-2022 MCHC (RBC) [Mass/Vol] 32.9 g/dL 32.0-35.0 [facility] MCV Auto (RBC) [Entitic vol] Ordered By: Jay Ceja on 09-05-2022 MCV (RBC) [Entitic vol] 90.2 fL 80-100 [facility] Monocytes Auto (Bld) [#/Vol] Ordered By: Jay Ceja on 09-05-2022 Monocytes (Bld) [#/Vol] 0.5 10*3/uL 0.0-0.8 [facility] Monocytes/100 WBC Auto (Bld) Ordered By: Jay Ceja on 09-05-2022 Monocytes/100 WBC (Bld) 9.7 % . [facility] Neutrophils Auto (Bld) [#/Vo l]Ordered By: Jay Ceja on 09-05-2022 Neutrophils (Bld) [#/Vol] 3.3 10*3/uL 1.8-7.7 [facility] Neutrophils/100 WBC Auto (Bl d)Ordered By: Jay Ceja on 09-05-2022 Neutrophils/100 WBC (Bld) 59.1 % . [facility] No Panel InformationOrdered By: Jay Ceja on 09-05-2022 Estimated GFR () 38 mL/Min [facility] Comment on above: GFR estimated refere nce range: According to KDOQI guidelines, <60 ml/min/1.73m2 is sufficient to diagnose a patient with chronic kidney disease. Pharmacy Creatinine Clearance (Chem 24.80 [facility] Nucleated erythrocytes [Pres ence] in Blood by Automated countOrdered By: Jay Ceja on 09-05-2022 Nucleated RBC Auto Ql (Bld) 0.2 /100{WBC} 0-0.5 [facility] Platelet mean volume Auto (B ld) [Entitic vol]Ordered By: Jay Ceja on 09-05-2022 Platelet mean volume (Bld) [Entitic vol] 9.2 fL 6.3-10.7 [facility] Platelets Auto (Bld) [#/Vol] Ordered By: Jay Ceja on 09-05-2022 Platelets (Bld) [#/Vol] 190 10*3/uL 150-450 [facility] RBC Auto (Bld) [#/Vol]Ordere d By: Jay Ceja on 09-05-2022 RBC (Bld) [#/Vol] 4.70 10*6/uL 3.60-5.00 [facility] Serum or plasma anion gap de terminationOrdered By: Jay Ceja on 09-05-2022 Anion gap [Moles/Vol] 11.5 mmol/L 6.0-15.0 [facility] Serum or plasma calcium mitch urement (mass/volume)Ordered By: Jay Ceja on 09-05-2022 Calcium [Mass/Vol] 8.9 mg/dL 8.2-10.[address] [facility] Serum or plasma chloride carlitos surement (moles/volume)Ordered By: Jay Ceja on 09-05-2022 Chloride [Moles/Vol] 105 mmol/L 95-114 [facility] Serum or plasma glucose mitch urement (mass/volume)Ordered By: Jay Ceja on 09-05-2022 Glucose [Mass/Vol] 103 mg/dL 70-[address] [facility] Comment on above: ADA recommended refe rence rangeRandom Glucose Reference Range is dependent on time and content of last meal. Glucose of more than 200 mg/dL in a nonstressed, ambulatory subject supports the diagnosis of Diabetes Mellitus. Serum or plasma potassium me asurement (moles/volume)Ordered By: Jay Ceja on 09-05-2022 Potassium [Moles/Vol] 4.0 mmol/L 3.5-5.1 [facility] Serum or plasma sodium measu rement (moles/volume)Ordered By: Jay Ceja on 09-05-2022 Sodium [Moles/Vol] 140 mmol/L 136-[address] [facility] Serum or plasma total carbon dioxide measurement (moles/volume)Ordered By: Jay Ceja on 09-05-2022 CO2 [Moles/Vol] 27.5 mmol/L 22.0-30.0 [facility] Serum or plasma urea nitroge n measurement (mass/volume)Ordered By: Jay Ceja on 09-05-2022 Urea nitrogen [Mass/Vol] 29 mg/dL 9-23 [facility] WBC Auto (Bld) [#/Vol]Ordere d By: Jay Ceja on 09-05-2022 WBC (Bld) [#/Vol] 5.6 10*3/uL 3.8-11.[address] [facility] Glucose mean value [Mass/vol ume] in Blood Estimated from glycated hemoglobinOrdered By: Jay Ceja on 09-02-2022 Average glucose Estimated from glycated hemoglobin (Bld) [Mass/Vol] 117 mg/dL [facility] Hemoglobin A1c percentageOrd ered By: Jay Ceja on 09-02-2022 HbA1c (Bld) [Mass fraction] 5.7 % 4.3-5.6 [facility] Comment on above: Increased risk for d iabetes: 5.7 - 6.4diabetes: >6.4glycemic control for adults with diabetes: <7.0 Laboratory - Chemistry and C hemistry - challengeOrdered By: Jay Ceja on 09-02-2022 Magnesium [Mass/Vol] 1.8 mg/dL 1.6-2.6 [facility] Natriuretic peptide B (Bld) [Mass/Vol] 307.0 pg/mL 5-100 [facility] TSH DL <= 0.005 mIU/L QnOrde red By: Jay Ceja on 09-02-2022 TSH Qn 3.39 m[IU]/L 0.45-5.33 [facility] Troponin I.cardiac [Mass/vol ume] in Serum or Plasma by High sensitivity methodOrdered By: Jay Ceja on 09-02-2022 Troponin I.cardiac High sensitivity method [Mass/Vol] 6 pg/mL 0-15 [facility] Albumin [Mass/volume] in Ser um or PlasmaOrdered By: Luis Lennon on 09-01-2022 Albumin [Mass/Vol] 3.7 g/dL 3.2-5.[address] [facility] Automated erythrocytes count in urine sediment (number/area)Ordered By: Luis Lennon on 09-01-2022 RBC Auto (Urine sed) [#/Area] 3-4 [HPF] 0-4 [facility] Automated leukocytes count i n urine sediment (number/area)Ordered By: Luis Lennon on 09-01-2022 WBC Auto (Urine sed) [#/Area] 5-9 [HPF] 0-4 [facility] Basophils Auto (Bld) [#/Vol] Ordered By: Luis Lennon on 09-01-2022 Basophils (Bld) [#/Vol] 0.1 10*3/uL 0.0-0.2 [facility] Basophils/100 WBC Auto (Bld) Ordered By: Luis Lennon on 09-01-2022 Basophils/100 WBC (Bld) 0.8 % . [facility] Bilirubin Test strip Ql (U)O rdered By: Luis Lennon on 09-01-2022 Bilirubin Ql (U) Negative Negative [facility] Color Auto (U)Ordered By: Robert Lennon on 09-01-2022 Color (U) Dark yellow Yellow [facility] Creatinine and Glomerular fi ltration rate.predicted panel (S/P/Bld)Ordered By: Luis Lennon on 09-01-2022 Creatinine [Mass/Vol] 1.14 mg/dL 0.44-1.03 [facility] Eosinophils Auto (Bld) [#/Vo l]Ordered By: Luis Lennon on 09-01-2022 Eosinophils (Bld) [#/Vol] 0.3 10*3/uL 0.0-0.45 [facility] Eosinophils/100 WBC Auto (Bl d)Ordered By: Luis Lennon on 09-01-2022 Eosinophils/100 WBC (Bld) 4.1 % . [facility] Erythrocyte distribution wid th Auto (RBC) [Ratio]Ordered By: Luis Lennon on 09-01-2022 Erythrocyte distribution width (RBC) [Ratio] 14.3 % 11.9-15.3 [facility] Estimated glomerular filtrat ion rate (GFR) non- AmericanOrdered By: Luis Lennon on 09-01-2022 GFR/1.73 sq M.predicted among non-blacks MDRD (S/P/Bld) [Vol rate/Area] 46 mL/Min [facility] Globulin Calc (S) [Mass/Vol] Ordered By: Luis Lennon on 09-01-2022 Globulin (S) [Mass/Vol] 2.2 g/dL [facility] Hematocrit Auto (Bld) [Volum e fraction]Ordered By: Luis Lennon on 09-01-2022 Hematocrit (Bld) [Volume fraction] 43.4 % 34.0-46.4 [facility] Hemoglobin [Mass/volume] in BloodOrdered By: Luis Lennon on 09-01-2022 Hemoglobin (Bld) [Mass/Vol] 13.9 g/dL 11.8-15.4 [facility] Ketones Auto test strip (U) [Mass/Vol]Ordered By: Luis Lennon on 09-01-2022 Ketones (U) [Mass/Vol] Trace Negative [facility] Laboratory - Chemistry and C hemistry - challengeOrdered By: Luis Lennon on 09-01-2022 Natriuretic peptide B (Bld) [Mass/Vol] 445.0 pg/mL 5-100 [facility] Laboratory - UrinalysisOrder ed By: Luis Lennon on 09-01-2022 Hyaline casts LM Ql (Urine sed) 0-8 [LPF] 0-8 [facility] Leukocytes [#/volume] correc anne marie for nucleated erythrocytes in Blood by Automated counOrdered By: Luis Lennon on 09-01-2022 WBC corrected for nucl RBC Auto (Bld) [#/Vol] 8.1 10*3/uL 3.8-11.6 [facility] Lymphocytes Auto (Bld) [#/Vo l]Ordered By: Luis Lennon on 09-01-2022 Lymphocytes (Bld) [#/Vol] 1.1 10*3/uL 1.00-4.8 [facility] Lymphocytes/100 WBC Auto (Bl d)Ordered By: Luis Lennon on 09-01-2022 Lymphocytes/100 WBC (Bld) 13.9 % . [facility] MCH Auto (RBC) [Entitic mass ]Ordered By: Luis Lennon on 09-01-2022 MCH (RBC) [Entitic mass] 29.3 pg 24.7-34.3 [facility] MCHC Auto (RBC) [Mass/Vol]Or dered By: Luis Lennon on 09-01-2022 MCHC (RBC) [Mass/Vol] 32.0 g/dL 32.0-35.0 [facility] MCV Auto (RBC) [Entitic vol] Ordered By: Luis Lennon on 09-01-2022 MCV (RBC) [Entitic vol] 91.4 fL 80-100 [facility] Monocyte distribution width [Entitic volume] in Blood by AutomatedOrdered By: Luis Lennon on 09-01-2022 Monocyte distribution width Auto (Bld) [Entitic vol] 16.84 % 0.00-20.00 [facility] Monocytes Auto (Bld) [#/Vol] Ordered By: Luis Lennon on 09-01-2022 Monocytes (Bld) [#/Vol] 0.6 10*3/uL 0.0-0.8 [facility] Monocytes/100 WBC Auto (Bld) Ordered By: Luis Lennon on 09-01-2022 Monocytes/100 WBC (Bld) 7.5 % . [facility] Neutrophils Auto (Bld) [#/Vo l]Ordered By: Luis Lennon on 09-01-2022 Neutrophils (Bld) [#/Vol] 5.9 10*3/uL 1.8-7.7 [facility] Neutrophils/100 WBC Auto (Bl d)Ordered By: Luis Lennon on 09-01-2022 Neutrophils/100 WBC (Bld) 73.7 % . [facility] Nitrite Test strip Ql (U)Ord ered By: Luis Lennon on 09-01-2022 Nitrite Ql (U) Negative Negative [facility] No Panel InformationOrdered By: Luis Lennon on 09-01-2022 Estimated GFR () 56 mL/Min [facility] Comment on above: GFR estimated refere nce range: According to KDOQI guidelines, <60 ml/min/1.73m2 is sufficient to diagnose a patient with chronic kidney disease. Pharmacy Creatinine Clearance (Chem 35.69 [facility] Nucleated erythrocytes [Pres ence] in Blood by Automated countOrdered By: Luis Lennon on 09-01-2022 Nucleated RBC Auto Ql (Bld) 0.1 /100{WBC} 0-0.5 [facility] Platelet mean volume Auto (B ld) [Entitic vol]Ordered By: Luis Lennon on 09-01-2022 Platelet mean volume (Bld) [Entitic vol] 9.1 fL 6.3-10.7 [facility] Platelets Auto (Bld) [#/Vol] Ordered By: Luis Lennon on 09-01-2022 Platelets (Bld) [#/Vol] 208 10*3/uL 150-450 [facility] Protein Auto test strip (U) [Mass/Vol]Ordered By: Luis Lennon on 09-01-2022 Protein (U) [Mass/Vol] 30 mg/dL Negative [facility] Protein [Mass/volume] in Ser um or PlasmaOrdered By: Luis Lennon on 09-01-2022 Protein [Mass/Vol] 5.9 g/dL 6.1-7.[address] [facility] RBC Auto (Bld) [#/Vol]Ordere d By: Luis Lennon on 09-01-2022 RBC (Bld) [#/Vol] 4.74 10*6/uL 3.60-5.00 [facility] Serum or plasma alanine mahmood otransferase measurement without P-5'-P (enzymatic activiOrdered By: Luis Lennon on 09-01-2022 ALT No additional P-5'-P [Catalytic activity/Vol] 33 U/L 10-60 [facility] Serum or plasma albumin/glob ulin mass ratioOrdered By: Luis Lennon on 09-01-2022 Albumin/Globulin [Mass ratio] 1.7 {ratio} [facility] Serum or plasma alkaline mia sphatase measurement (enzymatic activity/volume)Ordered By: Luis Lennon on 09-01-2022 ALP [Catalytic activity/Vol] 70 U/L 32-92 [facility] Serum or plasma anion gap de terminationOrdered By: Luis Lennon on 09-01-2022 Anion gap [Moles/Vol] 9.3 mmol/L 6.0-15.0 [facility] Serum or plasma aspartate am inotransferase measurement (enzymatic activity/volume)Ordered By: Luis Lennon on 09-01-2022 AST [Catalytic activity/Vol] 33 U/L 10-42 [facility] Serum or plasma calcium mitch urement (mass/volume)Ordered By: Luis Lennon on 09-01-2022 Calcium [Mass/Vol] 9.0 mg/dL 8.2-10.[address] [facility] Serum or plasma chloride carlitos surement (moles/volume)Ordered By: Luis Lennon on 09-01-2022 Chloride [Moles/Vol] 109 mmol/L 95-114 [facility] Serum or plasma glucose mitch urement (mass/volume)Ordered By: Lius Lennon on 09-01-2022 Glucose [Mass/Vol] 95 mg/dL 70-[address] [facility] Comment on above: ADA recommended refe rence rangeRandom Glucose Reference Range is dependent on time and content of last meal. Glucose of more than 200 mg/dL in a nonstressed, ambulatory subject supports the diagnosis of Diabetes Mellitus. Serum or plasma potassium me asurement (moles/volume)Ordered By: Luis Lennon on 09-01-2022 Potassium [Moles/Vol] 4.2 mmol/L 3.5-5.1 [facility] Serum or plasma sodium measu rement (moles/volume)Ordered By: Luis Lennon on 09-01-2022 Sodium [Moles/Vol] 138 mmol/L 136-[address] [facility] Serum or plasma total biliru bin measurement (mass/volume)Ordered By: Luis Lennon on 09-01-2022 Bilirubin [Mass/Vol] 1.3 mg/dL 0.3-1.2 [facility] Comment on above: Samples from patient s who have taken Naproxen have shown spurious elevation in Total Bilirubin levels. A metabolite of Naproxen, O-desmethylnaproxen, has been shown to interfere with the Dc-Day method for measuring Total Bilirubin. Serum or plasma total carbon dioxide measurement (moles/volume)Ordered By: Luis Lennon on 09-01-2022 CO2 [Moles/Vol] 23.9 mmol/L 22.0-30.0 [facility] Serum or plasma urea nitroge n measurement (mass/volume)Ordered By: Luis Lennon on 09-01-2022 Urea nitrogen [Mass/Vol] 23 mg/dL 9-23 [facility] Specific gravity Auto test s trip (U) [Rel density]Ordered By: Luis Lennon on 09-01-2022 Specific gravity (U) [Rel density] 1.022 1.001-1.03 0 [facility] Squamous epithelial cells de tection in urine sediment by light microscopyOrdered By: Luis Lennon on 09-01-2022 Epithelial cells.squamous LM Ql (Urine sed) 5-9 [HPF] 0-2 [facility] Troponin I.cardiac [Mass/vol ume] in Serum or Plasma by High sensitivity methodOrdered By: Luis Lennon on 09-01-2022 Troponin I.cardiac High sensitivity method [Mass/Vol] 7 pg/mL 0-15 [facility] Urine bacteria detection by automated methodOrdered By: Luis Lennon on 09-01-2022 Bacteria Auto Ql (U) None seen None Seen [facility] Urine clarity by refractomet ry automatedOrdered By: Luis Lennon on 09-01-2022 Clarity Refractometry automated (U) Clear Clear [facility] Urine culture routineOrdered By: Luis Lennon on 09-01-2022 Bacteria identified Cx Nom (U) 2 Days [facility] Bacteria identified Cx Nom (U) 2 Days [facility] Urine glucose measurement by automated test strip (mass/volume)Ordered By: Luis Lennon on 09-01-2022 Glucose Auto test strip (U) [Mass/Vol] Normal mg/dL Normal [facility] Urine hemoglobin detection b y automated test stripOrdered By: Luis Lennon on 09-01-2022 Hemoglobin Auto test strip Ql (U) Negative Negative [facility] Urine leukocyte esterase det ection by automated test stripOrdered By: Luis Lennon on 09-01-2022 Leukocyte esterase Auto test strip Ql (U) 2+ Negative [facility] Urobilinogen Auto test strip (U) [Mass/Vol]Ordered By: Luis Lennon on 09-01-2022 Urobilinogen (U) [Mass/Vol] Normal mg/dL Normal [facility] WBC Auto (Bld) [#/Vol]Ordere d By: Luis Lennon on 09-01-2022 WBC (Bld) [#/Vol] 8.1 10*3/uL 3.8-11.[address] [facility] pH Auto test strip (U)Ordere d By: Luis Lennon on 09-01-2022 pH (U) 5.5 [pH] 5.0-9.0 [facility] Office Visit (Cardiology)on 06-26-2022 Follow-up visit Diagnoses/Problems Assessed Persistent atrial fibrillation (427.31) (I48.19) 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 (427.81) (I49.5) Sinus bradycardia (427.89) (R00.1) Diastolic heart failure (428.30) (I50.30) Essential hypertension, benign (401.1) (I10) High risk medication use (V58.69) (Z79.899) Hyperlipemia (272.4) (E78.5) Never a smoker Pacemaker (V45.01) (Z95.0) Class 1 obesity with body mass index (BMI) of 32.0 to 32.9 in adult (278.00,V85.32) (E66.9,Z68.32) Anticoagulated (V58.61) (Z79.01) Stage 3a chronic kidney disease (585.3) (N18.31) Dyspnea (786.09) (R06.00) Orders SocHx: Never a smoker Tobacco Use Screening; Status:Complete; Done: 26Jun2022 Patient Instructions Please bring all medicines, vitamins, and herbal supplements with you when you come to the office. Prescriptions will not be filled unless you are compliant with your follow up appointments or have a follow up appointment scheduled as per instruction of your physician. Refills should be requested at the time of your visit. Follow up in 6 months with EKG Chief Complaint LESA GOLDEN is being seen for a 4-5 month follow-up of. History of Present Illness Patient is here for follow-up continue management for history of tachybradycardia syndrome, long-term anticoagulation, hypertension and hyperlipidemia. Since last time I saw her she denies any cardiac complaint of chest pain, palpitation, lightheadedness, dizziness or syncope. Her main complaint is symptoms of fatigue and tiredness. Recent device check, EKG and lab work all noted and reviewed with her. Assessment 1. Persistent atrial fibrillation with clinical picture of tachybradycardia syndrome. She is status post permanent pacemaker implantation recently remain in sinus rhythm off amiodarone which we discontinued because of concern about long-term side effect with recommendation to consider Tikosyn or sotalol down the road if she had recurrence 2. Long-term anticoagulation with Xarelto which dose due to renal dysfunction 3. History of nephrolithiasis 4. Hypertension controlled 5. Hyperlipidemia with mild weight gain recently 6. Borderline overweight 7. Patient describes shortness of breath without evidence of volume overload stable unchanged from before 8. Had complaint of recurrent nausea and vomiting she was diagnosed with esophageal stricture with concern liver cirrhosis followed by GI Plan 1. I had with the patient the results of her recent laboratory data 2. Risk, benefit and alternative anticoagulation reviewed patient understood and agreed 3. Continue to monitor for arrhythmia if she goes back to atrial fibrillation will consider Tikosyn or sotalol 4. Follow-up in month with an EKG 5. Continue pacemaker follow-up 6. I continue to encourage the patient to exercise and try to lose some weight. I advised her to restrict her salt intake 7. I reviewed her pacemaker check with her Surgical History Problems History of Appendectomy History of Foot surgery History of Hernia repair History of Hysterectomy History of Pacemaker insertion Current Meds Medication NameInstruction Atorvastatin Calcium 40 MG Oral TabletTAKE 1 TABLET DAILY. Escitalopram Oxalate 10 MG Oral TabletTAKE 1 TABLET DAILY. Hair Skin AND Nails Gummies CHEWTake 1 tablet daily HYDROcodone-Acetaminophen 10-325 MG Oral TabletTAKE 1 TABLET BY MOUTH EVERY DAY Metoprolol Tartrate 50 MG Oral TabletTAKE 1 TABLET EVERY 12 HOURS. Multi Vitamin TABSTAKE 1 TABLET DAILY. rOPINIRole HCl - 1 MG Oral TabletTAKE 1 TABLET DAILY IN EVENING Tylenol Extra Strength 500 MG TABSTAKE 1 TABLET EVERY 4 TO 6 HOURS NEEDED. Xarelto 15 MG Oral TabletTAKE 1 TABLET BY MOUTH EVERYDAY AT BEDTIME Allergies Medication fentanyl Allergy; STROKE; Recorded By: Ching Cruz; 07/26/2021 2:29:04 PM Sulfa Drugs Allergy; Recorded By: Natalia Lawrence; 06/03/2021 4:10:30 PM Social History Problems Never a smoker No alcohol use No caffeine use No illicit drug use Review of Systems Constitutional: not feeling tired. Cardiovascular: no intermittent leg claudication and as noted in HPI. Respiratory: shortness of breath, but no cough. Gastrointestinal: no change in bowel habits and no blood in stools. Integumentary: no skin rashes. Neurological: no seizures and no frequent falls. All other systems have been reviewed and are negative for complaint. Vitals Vital Signs Recorded: 26Jun2022 02:26PM Heart Rate71, Apical Efmxfkmu434, LUE, Sitting Rkfaopksn33, LUE, Sitting Height4 ft 11 in Hikyiv029 lb BMI Hmhdqyztck65.92 kg/m2 BSA Calculated1.69 Tobacco Useb) No Falls Screening (Age 18+)a) No falls within the last year EKG COMPLETED IN OFFICE Physical Exam Constitutional: alert and in no acute distress. Neck: neck is supple, symmetric, trachea midline, no masses and no thyromegaly . Pulmonary: no increased work of breathing or signs of respiratory distress (more content not included)... Normal [facility] Tobacco Screening.on 022 Fall risk assessment a) No falls within the last year [facility] [employer] 250 DO Work Phone: Tobacco use status [facility] b) No [facility]-[employer] 250 DO Work Phone: NM GASTRIC EMPTYon 2 NM GASTRIC EMPTY NUCLEAR MEDICINE GAS TRIC EMPTYING SCAN HISTORY: Nausea and vomiting. COMPARISON: None. TECHNIQUE: The patient ingested a meal labeled with 1.0 mCi of technetium-99 sulfur colloid and images were performed of the stomach over 4 hours. Gastric retention was calculated. FINDINGS: There is normal clearance of activity from the stomach into the small bowel. At one hour, there was 67% gastric retention. The normal range is 30% to 90%. At two hours, there was 24% gastric retention. The normal range 0% to 60%. At four hours, there was 14% gastric retention. The normal range 0% to 10%. IMPRESSION: Normal gastric emptying through 2 hours; delayed gastric emptying at 4 hours. Electronically authenticated by: FARRAH LOGAN Date: 2022-05-12 12:48 Normal [facility] Covid-19 PCR ([place])on SARS-CoV-2 (COVID-19) RNA GUILLERMO+probe Ql (Unsp spec) Not detected Normal NOT DETECTED [facility] Comment on above: Result Comment: This test is not yet approved or cleared by the [place] FDA. When there are no FDA-approved or cleared tests available, and other criteria are met, FDA can make tests available under an emergency access mechanism called an Emergency Use Authorization (EUA). The EUA for this test is supported by the [place] of Health and Human Service's (HHS's) declaration that circumstances exist to justify the emergency use of in vitro diagnostics for the detection and/or diagnosis of the virus that causes COVID-19. This EUA will remain in effect (meaning this test can be used) for the duration of the COVID-19 declaration justifying emergency of IVDs, unless it is terminated or revoked by FDA (after which the test may no longer be used). When diagnostic testing is negative, the possibility of a false negative should be considered in the context of a patient's recent exposures and the presence of clinical signs and symptoms consistent with SARS-CoV-2. Performed By: #### C VDTB #### [facility] [address] [address] [address] Lori Sutton Office Visit (Cardiology)on 03-10-2022 Follow-up visit Diagnoses/Problems Assessed Persistent atrial fibrillation (427.31) (I48.19) 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 (427.81) (I49.5) Sinus bradycardia (427.89) (R00.1) Anticoagulated (V58.61) (Z79.01) Diastolic heart failure (428.30) (I50.30) Essential hypertension, benign (401.1) (I10) High risk medication use (V58.69) (Z79.899) Hyperlipemia (272.4) (E78.5) Pacemaker (V45.01) (Z95.0) Dyspnea (786.09) (R06.00) Never a smoker Stage 3a chronic kidney disease (585.3) (N18.31) Class 1 obesity with body mass index (BMI) of 31.0 to 31.9 in adult (278.00,V85.31) (E66.9,Z68.31) Orders Class 1 obesity with body mass index (BMI) of 31.0 to 31.9 in adult Healthy Weight Tips; Status:Complete - Retrospective Authorization; Done: [id number] Some eating tips that can help you lose weight.; Status:Complete - Retrospective Authorization; Done: [id number] Persistent atrial fibrillation IO EKG Electrocardiogram- 12 Lead; Status:Complete; Done: [id number] SocHx: Never a smoker Tobacco Use Screening; Status:Complete; Done: [id number] Patient Instructions Please bring all medicines, vitamins, and herbal supplements with you when you come to the office. Prescriptions will not be filled unless you are compliant with your follow up appointments or have a follow up appointment scheduled as per instruction of your physician. Refills should be requested at the time of your visit. Pacemaker/Defib follow up per routine Follow up in 4-5 months + EKG Nely Brown LPN, am scribing for and in the presence of, Dr. Debbie Mac MD Chief Complaint LESA CHANTEL is being seen for a 4 month follow-up of. History of Present Illness Here for follow-up continue management for persistent atrial fibrillation with clinical picture of tachybradycardia syndrome, long-term anticoagulation. Last time I saw her we elected to stop her amiodarone with a recommendation to repeat her EKG and if she has recurrence we will consider placing her on sotalol or Tikosyn. Patient reports symptoms of fatigue and tiredness. She report a little bit of shortness of breath. She denies chest pain. She reports she is having some GI symptomatology and there is some concern about liver cirrhosis all of the above has been addressed by her mental health orderly Dr. Mota. She reports she underwent esophageal dilatation not too long ago. Her recent device check and EKG today demonstrate maintenance of sinus rhythm. Recent laboratory data showed creatinine 1.6. Previous echocardiogram showed LV systolic function in the normal range and a previous stress test was negative in [place]. Assessment 1. Persistent atrial fibrillation with clinical picture of tachybradycardia syndrome. She is status post permanent pacemaker implantation recently remain in sinus rhythm off amiodarone which we discontinued because of concern about long-term side effect with recommendation to consider Tikosyn or sotalol down the road if she had recurrence 2. Long-term anticoagulation with Xarelto which dose due to renal dysfunction 3. Recent diagnosis with nephrolithiasis requiring laser stented fragmentation and implantation of urethral stent which was removed recently by Dr. Alfonso 4. Hypertension controlled 5. Hyperlipidemia 6. Borderline overweight 7. Patient describes shortness of breath without evidence of volume overload stable unchanged from before 8. Other disease and esophageal stricture with concern liver cirrhosis followed by GI Plan 1. I had with the patient the results of her recent laboratory data 2. Risk, benefit and alternative anticoagulation reviewed patient understood and agreed 3. Continue to monitor for arrhythmia if she goes back to atrial fibrillation will consider Tikosyn or sotalol 4. Follow-up in month with an EKG 5. Continue pacemaker follow-up 6. I continue to encourage the patient to exercise and try to lose some weight Surgical History Problems History of Appendectomy History of Foot surgery History of Hernia repair History of Hysterectomy History of Pacemaker insertion Current Meds Medication NameInstruction Atorvastatin Calcium 40 MG Oral TabletTAKE 1 TABLET DAILY. Escitalopram Oxalate 10 MG Oral TabletTAKE 1 TABLET DAILY. Hair Skin AND Nails Gummies CHEWTake 1 tablet daily Metoprolol Tartrate 50 MG Oral TabletTAKE 1 TABLET EVERY 12 HOURS. Multi Vitamin TABSTAKE 1 TABLET DAILY. rOPINIRole HCl - 1 MG Oral TabletTAKE 1 TABLET DAILY IN EVENING Tylenol Extra Strength 500 MG TABSTAKE 1 TABLET EVERY 4 TO 6 HOURS NEEDED. Xarelto 15 MG Oral TabletTake 1 tablet daily Allergies Medication fentanyl Allergy; STROKE; Recorded By: Ching Cruz; 07/26/2021 2:29:04 PM Sulfa Drugs Allergy; Recorded By: Natalia Lawrence; 06/03/2021 4:10:30 PM Social History Problems Never a smoker No alcohol use No caffeine use No illicit drug use Review of Systems Constitutional: not feeling tired. Cardiovascular: (more content not included)... Normal [facility] Tobacco Screening.on 022 Fall risk assessment a) No falls within the last year [facility] [employer] DO Work Phone: Tobacco use status [facility] b) No [facility] [employer] DO Work Phone: Albumin [Mass/volume] in Ser um or PlasmaOrdered By: John Mims on 03-09-2022 Albumin [Mass/Vol] 3.7 g/dL 3.2-5.[address] [facility] Basophils Auto (Bld) [#/Vol] Ordered By: John Mims on 03-09-2022 Basophils (Bld) [#/Vol] 0.0 10*3/uL 0.0-0.2 [facility] Basophils/100 WBC Auto (Bld) Ordered By: John Mims on 03-09-2022 Basophils/100 WBC (Bld) 0.7 % . [facility] Blood hemoglobin measurement (mass/volume)Ordered By: John Mims on 03-09-2022 Hemoglobin (Bld) [Mass/Vol] 13.7 g/dL 11.8-15.4 [facility] Blood leukocytes automated c ount (number/volume)Ordered By: John Mims on 03-09-2022 WBC (Bld) [#/Vol] 6.2 10*3/uL 4.5-11.[address] [facility] Creatinine and Glomerular fi ltration rate.predicted panel (S/P/Bld)Ordered By: John Mims on 03-09-2022 Creatinine [Mass/Vol] 1.10 mg/dL 0.44-1.03 [facility] Eosinophils Auto (Bld) [#/Vo l]Ordered By: John Mims on 03-09-2022 Eosinophils (Bld) [#/Vol] 0.3 10*3/uL 0.0-0.45 [facility] Eosinophils/100 WBC Auto (Bl d)Ordered By: John Mims on 03-09-2022 Eosinophils/100 WBC (Bld) 4.2 % . [facility] Erythrocyte distribution wid th Auto (RBC) [Ratio]Ordered By: John Mims on 03-09-2022 Erythrocyte distribution width (RBC) [Ratio] 13.3 % 11.9-15.3 [facility] Estimated glomerular filtrat ion rate (GFR) non- AmericanOrdered By: John Mims on 03-09-2022 GFR/1.73 sq M.predicted among non-blacks MDRD (S/P/Bld) [Vol rate/Area] 48 mL/Min [facility] Globulin Calc (S) [Mass/Vol] Ordered By: John Mims on 03-09-2022 Globulin (S) [Mass/Vol] 2.6 g/dL [facility] Hematocrit Auto (Bld) [Volum e fraction]Ordered By: John Mims on 03-09-2022 Hematocrit (Bld) [Volume fraction] 40.9 % 34.0-46.4 [facility] Laboratory - CoagulationOrde red By: John Mims on 03-09-2022 PT Coag (PPP) [Time] 17.6 s 9.0-12.9 [facility] - Hematology and Cell countsOrdered By: John Mims on 03-09-2022 Nucleated RBC/100 WBC (Bld) [Ratio] 0.0 % 0-0.5 [facility] Lymphocytes Auto (Bld) [#/Vo l]Ordered By: John Mims on 03-09-2022 Lymphocytes (Bld) [#/Vol] 1.1 10*3/uL 1.00-4.8 [facility] Lymphocytes/100 WBC Auto (Bl d)Ordered By: John Mims on 03-09-2022 Lymphocytes/100 WBC (Bld) 17.2 % . [facility] MCH Auto (RBC) [Entitic mass ]Ordered By: John Mims on 03-09-2022 MCH (RBC) [Entitic mass] 30.8 pg 24.7-34.3 [facility] MCHC Auto (RBC) [Mass/Vol]Or dered By: John Mims on 03-09-2022 MCHC (RBC) [Mass/Vol] 33.4 g/dL 32.0-35.0 [facility] MCV Auto (RBC) [Entitic vol] Ordered By: John Mims on 03-09-2022 MCV (RBC) [Entitic vol] 92.2 fL 80-100 [facility] Monocyte %Ordered By: Letty Mims on 03-09-2022 Monocyte % 24 umol/L 11-35 [facility] Monocytes Auto (Bld) [#/Vol] Ordered By: John Mims on 03-09-2022 Monocytes (Bld) [#/Vol] 0.5 10*3/uL 0.0-0.8 [facility] Monocytes/100 WBC Auto (Bld) Ordered By: John Mims on 03-09-2022 Monocytes/100 WBC (Bld) 7.4 % . [facility] Neutrophils Auto (Bld) [#/Vo l]Ordered By: John Mims on 03-09-2022 Neutrophils (Bld) [#/Vol] 4.4 10*3/uL 1.8-7.7 [facility] Neutrophils/100 WBC Auto (Bl d)Ordered By: John Mims on 03-09-2022 Neutrophils/100 WBC (Bld) 70.5 % . [facility] No Panel InformationOrdered By: John Mims on 03-09-2022 Estimated GFR () 58 mL/Min [facility] Comment on above: GFR estimated refere nce range: According to KDOQI guidelines, <60 ml/min/1.73m2 is sufficient to diagnose a patient with chronic kidney disease. Pharmacy Creatinine Clearance (Chem N/A [facility] Platelet mean volume Auto (B ld) [Entitic vol]Ordered By: John Mims on 03-09-2022 Platelet mean volume (Bld) [Entitic vol] 8.5 fL 6.3-10.7 [facility] Platelet poor plasma interna tional normalized ratio (INR) by coagulation assay (relatOrdered By: John Mims on 03-09-2022 INR Coag (PPP) [Relative time] 1.6 {INR} [facility] Comment on above: INR Therapeutic Rang e A) Pre- and Peroperative OAT started two weeks before surgery. NOT HIP SURGERY: 1.5 - 2.5 HIP SURGERY: 2 - 3 B) Primary and secondary prevention of venous THROMBOSIS: 2 - 3 C) Active venous thrombosis, pulmonary embolism and prevention of recurrent venous thrombosis: 2 - 3 D) Prevention of arterial thromboembolism including patients with mechanical heart valves: 3 - 4.5 Platelets Auto (Bld) [#/Vol] Ordered By: John Mims on 03-09-2022 Platelets (Bld) [#/Vol] 213 10*3/uL 150-450 [facility] Protein [Mass/volume] in Ser um or PlasmaOrdered By: John Mims on 03-09-2022 Protein [Mass/Vol] 6.3 g/dL 6.1-7.[address] [facility] RBC Auto (Bld) [#/Vol]Ordere d By: John Mims on 03-09-2022 RBC (Bld) [#/Vol] 4.44 10*6/uL 3.60-5.00 [facility] Serum or plasma alanine mahmood otransferase measurement without P-5'-P (enzymatic activiOrdered By: John Mims on 03-09-2022 ALT No additional P-5'-P [Catalytic activity/Vol] 23 U/L 10-60 [facility] Serum or plasma albumin/glob ulin mass ratioOrdered By: John Mims on 03-09-2022 Albumin/Globulin [Mass ratio] 1.4 {ratio} [facility] Serum or plasma alkaline mia sphatase measurement (enzymatic activity/volume)Ordered By: John Mims on 03-09-2022 ALP [Catalytic activity/Vol] 98 U/L 32-92 [facility] Serum or plasma aspartate am inotransferase measurement (enzymatic activity/volume)Ordered By: John Mims on 03-09-2022 AST [Catalytic activity/Vol] 27 U/L 10-42 [facility] Serum or plasma calcium mitch urement (mass/volume)Ordered By: John Mims on 03-09-2022 Calcium [Mass/Vol] 9.3 mg/dL 8.2-10.[address] [facility] Serum or plasma chloride carlitos surement (moles/volume)Ordered By: John Mims on 03-09-2022 Chloride [Moles/Vol] 106 mmol/L 95-114 [facility] Serum or plasma glucose mitch urement (mass/volume)Ordered By: John Mims on 03-09-2022 Glucose [Mass/Vol] 88 mg/dL 70-[address] [facility] Comment on above: ADA recommended refe rence range Random Glucose Reference Range is dependent on time and content of last meal. Glucose of more than 200 mg/dL in a nonstressed, ambulatory subject supports the diagnosis of Diabetes Mellitus. Serum or plasma potassium me asurement (moles/volume)Ordered By: John Mims on 03-09-2022 Potassium [Moles/Vol] 4.6 mmol/L 3.5-5.1 [facility] Serum or plasma sodium measu rement (moles/volume)Ordered By: John Mims on 03-09-2022 Sodium [Moles/Vol] 139 mmol/L 136-[address] [facility] Serum or plasma total biliru bin measurement (mass/volume)Ordered By: John Mims on 03-09-2022 Bilirubin [Mass/Vol] 0.9 mg/dL 0.3-1.2 [facility] Serum or plasma total carbon dioxide measurement (moles/volume)Ordered By: John Mims on 03-09-2022 CO2 [Moles/Vol] 23.9 mmol/L 22.0-30.0 [facility] Serum or plasma urea nitroge n measurement (mass/volume)Ordered By: John Mims on 03-09-2022 Urea nitrogen [Mass/Vol] 30 mg/dL 9-23 [facility] TSH DL <= 0.005 mIU/L QnOrde red By: John Serranoack on 03-09-2022 TSH Qn 1.70 m[IU]/L 0.45-5.33 [facility] Thyroxine (T4) free [Mass/vo lume] in Serum or PlasmaOrdered By: John Mims on 03-09-2022 Free T4 [Mass/Vol] 1.37 ng/dL 0.61-1.[address] [facility] US SINGLE QUAD RT UPPERon US SINGLE QUAD RT UPPER EXAMINATION: US SINGLE QUAD RT UPPER HISTORY: Right upper quadrant pain COMPARISON: 10/05/2021 FINDINGS: The visualized pancreas is normal. Liver measures 14.6 cm in length. The liver contour is mildly nodular. Diffuse increase in hepatic echotexture. Hepatopedal flow identified may portal vein with velocity of 30 cm/s. The gallbladder is normal in size. Echogenic focus layering dependently within the gallbladder measuring 2 cm, cholelithiasis favored. The gallbladder wall measures 2.4 mm, normal. The common bile duct measures 2.6 mm, normal. The right kidney measures 8.8 x 4.8 x 4.5 cm. No finding of a posterior anechoic echogenicity measuring 2.9 x 2.8 x 2.2 cm, a cyst is favored. The right renal cortex measures 1.2 cm thick. IMPRESSION: Nodular echogenic liver, consider cirrhosis Cholelithiasis without evidence of cholecystitis 2.9 cm right renal simple cyst Electronically authenticated by: HARDY LIRA Date: 2022-01-25 16:24 Normal [facility] BNPon 01-11-2022 Natriuretic peptide B (Bld) [Mass/Vol] 520.0 pg/mL Normal <=1,800.0 [facility] Comment on above: Performed By: #### B MP, TSH, BNP #### [facility] [address] [place], [place] [address] Dr. Lori Sutton CBC AUTO DIFFon 01-11-2022 BASO # 0.0 103/ul Normal 0.0-0.1 [facility] Comment on above: Performed By: #### C BC ####[facility] [address] [place], [place] [address]Jt. Lori Sutton Basophils/100 WBC (Bld) 0.5 % Normal 0.2-2.0 [facility] Comment on above: Performed By: #### C BC ####[facility] [address] [address]Dr. Lori Sutton EO # 0.3 103/ul Normal 0.0-0.7 [facility] Comment on above: Performed By: #### C BC ####[facility] [address] [place], [place] [address]Dr. Lori Sutton Eosinophils/100 WBC (Bld) 3.9 % Normal 0.9-7.0 [facility] Comment on above: Performed By: #### C BC ####[facility] [address] [place], [place] [address]Dr. Lori Sutton Erythrocyte distribution width (RBC) [Ratio] 14.4 % Normal 11.0-15.0 [facility] Comment on above: Performed By: #### C BC ####[facility] [address] [place], [place] [address]Dr. Lori Sutton Hematocrit (Bld) [Volume fraction] 42.0 % Normal 36.0-48.0 [facility] Comment on above: Performed By: #### C BC ####[facility] [address] [place], [place] [address]Dr. Lori Sutton Hemoglobin (Bld) [Mass/Vol] 13.4 g/dL Normal 12.0-16.0 [facility] Comment on above: Performed By: #### C BC ####[facility] [address] [place], [place] [address]Dr. Lori Sutton IG # 0.04 10e3/ul Critically high 0.00-0.03 [facility] Comment on above: Performed By: #### C BC ####[facility] [address] [place], [place] [address]Dr. Lori Sutton IG % 0.5 % Normal 0.0-0.5 [facility] Comment on above: Performed By: #### C BC ####[facility] [address] [id number]. Lori Herman LYMPH # 1.7 103/ul Normal 1.2-3.8 [facility] Comment on above: Performed By: #### C BC ####[facility] [address] [address]Dr. Lori Herman Lymphocytes/100 WBC (Bld) 21.3 % Normal 20.5-60.0 [facility] Comment on above: Performed By: #### C BC ####[facility] [address] [address]Dr. Estephaniaurbano Sutton MANUAL DIFF REQ NO Normal [facility] Comment on above: Performed By: #### C BC ####[facility] [address] [address]Dr. Lori Herman MCH (RBC) [Entitic mass] 30.6 pg Normal 26.7-34.0 [facility] Comment on above: Performed By: #### C BC ####[facility] [address] [place], [place] [address]Dr. Lori Herman MCHC (RBC) [Mass/Vol] 31.9 g/dL Normal 29.9-35.2 [facility] Comment on above: Performed By: #### C BC ####[facility] [address] [place], [place] [address]Dr. Estephaniaurbano Sutton MCV (RBC) [Entitic vol] 95.9 fL Normal 81.0-99.0 [facility] Comment on above: Performed By: #### C BC ####[facility] [address] [place], [place] [address]Dr. Estephaniaurbano Sutton MONO # 0.7 103/ul Normal 0.3-0.8 [facility] Comment on above: Performed By: #### C BC ####[facility] [address] [place], [place] [address]Dr. Estephaniaurbano Sutton Monocytes/100 WBC (Bld) 8.5 % Normal 1.7-12.0 [facility] Comment on above: Performed By: #### C BC ####[facility] [address] [place], [place] [address]Dr. Estephaniaurbano Sutton NEUT # 5.2 103/ul Normal 1.4-6.5 [facility] Comment on above: Performed By: #### C BC ####[facility] [address] [address] [address]Dr. Lori Sutton Neutrophils/100 WBC (Bld) 65.3 % Normal 43.0-75.0 [facility] Comment on above: Performed By: #### C BC ####[facility] [address] [address]DrMelita Sutton Platelet mean volume (Bld) [Entitic vol] 10.3 fL Normal 9.5-13.5 [facility] Comment on above: Performed By: #### C BC ####[facility] [address] [place] [address] [address]DrMelita Sutton PLT 230 103/ul Normal 150-450 [facility] Comment on above: Performed By: #### C BC ####[facility] [address] [place] [address]DrMelita Sutton RBC 4.38 106/ul Normal 4.20-5.40 [facility] Comment on above: Performed By: #### C BC ####[facility] [address] [address] [address]DrMelita Stuton WBC 8.0 103/ul Normal 4.0-11.0 [facility] Comment on above: Performed By: #### C BC ####[facility] [address] [place] [address] [address]Dr. Lori Sutton PROF CHEM 8 (BAS METB)on Anion gap [Moles/Vol] 14.3 mmol/L Normal [facility] Comment on above: Performed By: #### B MP, TSH, BNP #### [facility] [address] [address] [address] Lori Sutton Calcium [Mass/Vol] 8.8 mg/dL Normal 8.5-10.1 [facility] Comment on above: Performed By: #### B MP, TSH, BNP #### [facility] [address] [address] [address] Lori Sutton Chloride [Moles/Vol] 103 mmol/L Normal 98-107 [facility] Comment on above: Performed By: #### B MP, TSH, BNP #### [facility] [address] [place] [address] Dr. Lori Sutton CO2 [Moles/Vol] 27.5 mmol/L Normal 21.0-32.0 [facility] Comment on above: Performed By: #### B MP, TSH, BNP #### [facility] [address] [place] [address] Dr. Lori Sutton Creatinine [Mass/Vol] 1.65 mg/dL Critically high 0.55-1.02 [facility] Comment on above: Performed By: #### B MP, TSH, BNP #### [facility] [address] [place] [address] Dr. Lori Sutton EGFR-AF SERBIAN 36 mL/min/1.73m2 Critically low >=60 [facility] Comment on above: Performed By: #### B MP, TSH, BNP #### [facility] [address] [place] [address] Dr. Lori Sutton EGFR-NON AF SERBIAN 30 mL/min/1.73m2 Critically low >=60 [facility] Comment on above: Performed By: #### B MP, TSH, BNP #### [facility] [address] [place] [address] Dr. Lori Sutton Glucose [Mass/Vol] 88 mg/dL Normal 74-106 [facility] Comment on above: Performed By: #### B MP, TSH, BNP #### [facility] [address] [place] [address] Dr. Lori Sutton Potassium [Moles/Vol] 4.8 mmol/L Normal 3.5-5.1 [facility] Comment on above: Performed By: #### B MP, TSH, BNP #### [facility] [address] [place] [address] Dr. Lori Suttno Sodium [Moles/Vol] 140 mmol/L Normal 136-145 [facility] Comment on above: Performed By: #### B MP, TSH, BNP #### [facility] [address] [address] [address] Lori Sutton Urea nitrogen [Mass/Vol] 46.0 mg/dL Critically high 7.0-18.0 [facility] Comment on above: Performed By: #### B MP, TSH, BNP #### [facility] [address] [address] [address] Lori Sutton Urea nitrogen/Creatinine [Mass ratio] 27.9 mg/mg Normal [facility] Comment on above: Performed By: #### B MP, TSH, BNP #### [facility] [address] [address] [address] Lori Sutton TSHon 01-11-2022 TSH 2.012 uIU/mL Normal 0.358-3.74 0 [facility] Comment on above: Performed By: #### B MP, TSH, BNP #### [facility] [address] [address] [address] Lori Sutton TSH RANGE SEE BELOW Normal [facility] Comment on above: Result Comment: <0.3 4 UIU/ml HYPERTHYROID 0.34-5.60 UIU/ml EUTHYROID >5.60 UIU/ml HYPOTHYROID Performed By: #### B MP, TSH, BNP #### [facility] [address] [address] [address] Lori Sutton XR CHEST 2 Von 01-11-2022 XR CHEST 2 V EXAM: XR CHEST 2 V HISTORY: Chronic diastolic heart failure EXAM: XR CHEST 2 V INDICATION: 81 years old Female Chronic diastolic heart failure COMPARISON: 10/05/21 FINDINGS: The cardiac silhouette is normal. There is no pulmonary edema. The lungs are clear. There is no pneumonia. There is no pneumothorax.Pacer is seen There is no abnormal foreign body. IMPRESSION: There is no acute abnormality. Electronically authenticated by: MACARENA MEHTA Date: 2022-01-11 15:14 Normal [facility] COVID-19 Positive/NegativeOr dered By: John Mims on 12-30-2021 SARS-CoV-2 (COVID-19) N gene GUILLERMO+probe Ql (Resp) Negative Negative [facility] Comment on above: Testing for SARS-CoV -2 by RT-PCR This test was developed and its performance characteristics determined by [employer]) and validated at the [facility]. This test has not been FDA cleared or approved. This test has been authorized by FDA under an Emergency Use Authorization (EUA). This test has been validated in accordance with the FDA's Guidance Document (Policy for Diagnostics Testing in Laboratories Certified to Perform High Complexity Testing under CLIA prior to Emergency Use Authorization for Coronavirus Disease-2019 during the Public Health Emergency) issued on November 20, 2019. This test is only authorized for the duration of time the declaration that circumstances exist justifying the authorization of the emergency use of in vitro diagnostic tests for detection of SARS-CoV-2 virus and/or diagnosis of COVID-19 infection under section 564(b)(1) of the Act, 21 U.S.C. 360bbb-3(b)(1), unless the authorization is terminated or revoked sooner. Tobacco Screening.on 022 Fall risk assessment a) No falls within the last year [facility] [employer] DO Work Phone: Tobacco use status CP b) No [facility] [employer] DO Work Phone: Tobacco Screening. Yes [facility] [employer] [address] DO Work Phone: RAD - CT Reporton 10-10-2021 RAD - CT Report [id number]:127 [facility] Tobacco Screening.on 021 Fall risk assessment b) One or more fall s in the last year [facility] [employer] DO Work Phone: Tobacco use status CPHS b) No [facility] [employer] [address] DO Work Phone: [phone] - CT Reporton 07-24-2021 RAD - CT Report [id number]#1.00CD:127 [facility] Consent for Procedure/Surger yon 07-22-2021 Consent for Procedure/Surgery [id number]#1.00CD:127 Normal [facility] Ambulatory Clinical Summaryo n 07-21-2021 Ambulatory Clinical Summary {[id number]}CD: [id number] Normal [facility] Patient Educationon 07-21-20 21 Patient Education Urology Kidney Stones Kidney stones are rock-like masses that form inside of the kidneys. Kidneys are organs that make pee (urine). A kidney stone may move into other parts of the urinary tract, including: ? The tubes that connect the kidneys to the bladder (ureters). ? The bladder. ? The tube that carries urine out of the body (urethra). Kidney stones can cause very bad pain and can block the flow of pee. The stone usually leaves your body (passes) through your pee. You may need to have a doctor take out the stone. What are the causes? Kidney stones may be caused by: ? A condition in which certain glands make too much parathyroid hormone (primary hyperparathyroidism). ? A buildup of a type of crystals in the bladder made of a chemical called uric acid. The body makes uric acid when you eat certain foods. ? Narrowing (stricture) of one or both of the ureters. ? A kidney blockage that you were born with. ? Past surgery on the kidney or the ureters, such as gastric bypass surgery. What increases the risk? You are more likely to develop this condition if: ? You have had a kidney stone in the past. ? You have a family history of kidney stones. ? You do not drink enough water. ? You eat a diet that is high in protein, salt (sodium), or sugar. ? You are overweight or very overweight (obese). What are the signs or symptoms? Symptoms of a kidney stone may include: ? Pain in the side of the belly, right below the ribs (flank pain). Pain usually spreads (radiates) to the groin. ? Needing to pee often or right away (urgently). ? Pain when going pee (urinating). ? Blood in your pee (hematuria). ? Feeling like you may vomit (nauseous). ? Vomiting. ? Fever and chills. How is this treated? Treatment depends on the size, location, and makeup of the kidney stones. The stones will often pass out of the body through peeing. You may need to: ? Drink more fluid to help pass the stone. In some cases, you may be given fluids through an IV tube put into one of your veins at the hospital. ? Take medicine for pain. ? Make changes in your diet to help keep kidney stones from coming back. Sometimes, medical procedures are needed to remove a kidney stone. This may involve: ? A procedure to break up kidney stones using a beam of light (laser) or shock waves. ? Surgery to remove the kidney stones. Follow these instructions at home: Medicines ? Take uffy-cxx-ivvhyvr and prescription medicines only as told by your doctor. ? Ask your doctor if the medicine prescribed to you requires you to avoid driving or using heavy machinery. Eating and drinking ? Drink enough fluid to keep your pee pale yellow. You may be told to drink at least 8?10 glasses of water each day. This will help you pass the stone. ? If told by your doctor, change your diet. This may include: ? Limiting how much salt you eat. ? Eating more fruits and vegetables. ? Limiting how much meat, poultry, fish, and eggs you eat. ? Follow instructions from your doctor about eating or drinking restrictions. General instructions ? Collect pee samples as told by your doctor. You may need to collect a pee sample: ? 24 hours after a stone comes out. ? 8?12 weeks after a stone comes out, and every 6?12 months after that. ? Strain your pee every time you pee (urinate), for as long as told. Use the strainer that your doctor recommends. ? Do not throw out the stone. Keep it so that it can be tested by your doctor. ? Keep all follow-up visits as told by your doctor. This is important. You may need follow-up tests. How is this prevented? To prevent another kidney stone: ? Drink enough fluid to keep your pee pale yellow. This is the best way to prevent kidney stones. ? Eat healthy foods. ? Avoid certain foods as told by your doctor. You may be told to eat less protein. ? Stay at a healthy weight. Where to find more information ? National Kidney Foundation (NKF): www.kidney.org ? Urology Care Foundation (UCF): www.urologyhealth.org Contact a doctor if: ? You have pain that gets worse or does not get better with medicine. Get help right away if: ? You have a fever or chills. ? You get very bad pain. ? You get new pain in your belly (abdomen). ? You pass out (faint). ? You cannot pee. Summary ? Kidney stones are rock-like masses that form inside of the kidneys. ? Kidney stones can cause very bad pain and can block the flow of pee. ? The stones will often pass out of the body through peeing. ? Drink enough fluid to keep your pee pale yellow. This information is not intended to replace advice given to you by your health care provider. Make sure you discuss any questions you have with your health care provider. Document Released: 01/22/2009 Document Revised: 12/23/2019 Document Reviewed: 12/23/2019 [employer] Patient Education ? 2019 [employer]. Normal [facility] Urology Office/Clinic Noteon 07-21-2021 Urology Office/Clinic Note Chief Complaint Pt is here for a cysto/LT stent removal HPI Staff Lesa is a 80 y.o. female new patient here for a cysto/LT stent removal. ABX taken. History of Present Illness Reviewed operative note and CT scan. There have been no associated fever, chills, flank pain or blood in the urine. Pt. denies any pain/burning with urination at this time. I have reviewed and verified the staff HPI to be accurate for this encounter. I have reviewed the previous health record information and history for this patient from Dr. Alfonso. Review of Systems PHQ Score Initial Depression Screen Score: 0 ROS - Provider Constitutional: denies weight loss, denies hot flashes. Eyes: denies eye problems. Gastrointestinal: denies nausea, denies vomiting. Cardiovascular: denies chest pain or angina. Integumentary: no dryness Musculoskeletal: denies musculoskeletal symptoms. ENMT: denies otolaryngeal symptoms. Respiratory: no shortness of breath. Heme/Lymph: denies easy bleeding tendency, denies easy bruising tendency. Psychiatric: no confusion, no anxiety. Genitourinary: See HPI Physical Exam Vitals & Measurements HR: 75(Peripheral) BP: 140/65 HT: 152 cm HT: 152.0 cm WT: 55 kg WT: 55.0 kg BMI: 23.81 Procedure Operative Information Anesthesia Type: Local Procedure: Local Cystoscopy with Stent Removal Complications: None Surgical risks, benefits, details of the procedure have been explained to the patient. Full informed consent has been obtained. Intraoperative Information Prepped: Patient is placed in modified dorso/lithotomy position. The patient was prepped with the Betadine solution. Anesthesia: 2% Xylocaine Jelly per urethra. Procedure: Cystoscopy and left stent removal. The flexible Cystoscope was passed in retrograde fashion into the bladder without difficulty. The bladder was viewed in entirety and found to be without tumors or stones. Mild inflammation was seen surrounding the orifice with the stent seen protruding from it. The stent was then grasped and removed in its entirety. Specimens Removed: None Postoperative Information The patient tolerated the procedure well and was subsequently discharged home. Assessment/Plan Will return in 6 months with KUB. 1. Foreign body in bladder (T19.1XXA: Foreign body in bladder, initial encounter) Cysto/Left stent removal in office today. 2. Ureteral stone (N20.1: Calculus of ureter) S/p cysto, left rg pyelogram, left urs, holmium laser ablation, and basket extraction, left stent placement done 07/01/2021. Pt. was seen in consult at [facility]. CT done 06/27/2021 shows left hydronephrosis. 12.5 mm proximal left obstructive stone was identified. 3. Renal cyst (N28.1: Cyst of kidney, acquired) 2.9 cm right renal cyst found on CT scan from 06/27/2021. Overall the patient tolerates a stent removal well today. Her previous CT scan while hospitalized demonstrated no other renal calculi in the kidneys. I feel we should see her back in 6 months with a KUB. She agrees with that plan. She will finish her antibiotics. While leaving the patient states that her insurance will be changing and then I am not on her new insurance plan. Advised that she needs to follow-up with a urologist within the next 6 months to 1 year with an abdominal x-ray. She will see who is on her plan and follow-up with another urologist at some point. Follow-up With When Contact Information Byron ALFONSO MD, URL In 6 months 01/19/[address] [address]- Additional Instructions: KUB Patient Education Kidney Stones, Drov-on-Xclk ILeonor, personally scribed for Dr. Alfonso on 07/21/2021 15:11:38. . Documentation recorded by the scribeLeonor, accurately reflects the services(s) I performed and decisions made by me. Authenticated by Dr. Alfonso on 07/21/2021 15:14:17. Problem List/Past Medical History Ongoing Renal cyst Ureteral stone Historical No qualifying data Procedure/Surgical History Cystoscopy (07/21/2021), Cystoscopy (06/25/2021), CATARACT EXTRACTION WITH INTRAOCULAR LENS IMPLANTATION RIGHT EYE (09/09/2018), Cataract extraction and insertion of intraocular lens (07/29/2018). Medications acetaminophen-oxycodone 325 mg-5 mg oral tablet, 1 tab(s), Oral, q6hr, PRN, Not taking: completed medication buPROPion 300 mg XL /24 hrs, 1, Oral, Daily Eliquis 5 mg oral tablet, 5 mg= 1 tab(s), Oral, BID Excedrin Extra Strength, 2 tab(s), Oral, q6hr, PRN felodipine, 5 mg, Oral, Daily Keflex 500 mg Cap, 500 mg= 1 cap(s), Oral, BID tizanidine, 4 mg, Oral, Once a day (at bedtime), Not taking Viactiv Multi-Vitamin, 1 tab(s), Chewed, BID Vitamin D3, 1000 International_Unit, Oral, Daily Allergies sulfa drugs (Hives) Social History Tobacco Never (less than 100 in lifetime) Tobacco Use:. Never Smokeless Tobacco Use:., 07/21/2021 [facility] Comment on above: Result Comment: Elec tronically Signed By: Byron ALFONSO MD\.br\Date and Time Signed: 07/21/21 15:17 EST\.br\Electronically Co-Signed By: Leonor Rucker\.br\Date and Time Co-Signed: 07/21/21 15:12 EST Falls Risk Screeningon 07-06 Fall risk assessment a) No falls within the last year [facility] 250 DO Work Phone: Pathology Noteon 07-06-2021 Pathology Note [id number]#1.00CD:127 Normal [facility] Operative Reporton Operative Report [id number]#1.00CD:127 Normal [facility] RAD - MISCon 07-04-2021 RAD - MISC [id number]#1.00CD:127 Normal [facility] Insurance Correspondence Off iceon 07-01-2021 Insurance Correspondence Office [id number]:127 Normal [facility] Consultation Noteon 06-29-20 Consultation Note [id number]:127 Normal [facility] No Panel Informationon 06-[address] [address] [place] Work Phone: 20.44\S\20.44 Normal [place] [address] [place] Work Phone: Comment on above: PERFORMED BY:[facility] [place], [place] [id number] MEDICAL DIRECTORVITOR ZARATE M.D. 9.0\S\9.0 Normal 8.2-10.2 [place] [address] [place] Work Phone: 24.1\S\24.1 Normal 22.0-30.0 [place] [address] [place] Work Phone: 103\S\103 Normal 95-114 [facility] [place] [address] [place] Work Phone: 4.4\S\4.4 Normal 3.5-5.1 [facility] [place] [address] [place] Work Phone: 138\S\138 Normal 136-146 [facility] [place] [address] [place] Work Phone: 31\S\31 Normal [facility] [place] [address] [place] Work Phone: Comment on above: GFR estimated refere nce range: According to KDOQI guidelines, <60 ml/min/1.73m2 is sufficient to diagnose a patient with chronic kidney disease. 26\S\26 Normal [facility] [place] [address] [place] Work Phone: 1.88\S\1.88 above high threshold 0.44-1.03 [facility] [place] [address] [place] Work Phone: 34\S\34 above high threshold 9-23 [facility] [place] [address] [place] Work Phone: 130\S\130 above high threshold 70-100 [facility] [place] [address] [place] Work Phone: Comment on above: Random Glucose Refer ence Range is dependent on time and content of last meal. Glucose of more than 200 mg/dL in a nonstressed, ambulatory subject supports the diagnosis of Diabetes Mellitus. ADA recommended reference range No Panel Informationon 06-23 3+ above high threshold Negative [facility] [place] [address] [place] Work Phone: Negative Normal Negative [facility] [place] [address] [place] Work Phone: Normal Normal Normal [facility] [place] [address] [place] Work Phone: 30\S\30 above high threshold Negative [facility] [place] [address] [place] Work Phone: None Seen Normal 0-8 [facility] [place] Work Phone: Comment on above: PERFORMED BY:[facility] [place], [place] [phone] MEDICAL DIRECTORVITOR ZARATE M.D. 4+ above high threshold Negative -[facility] [place] Work Phone: 0-1 Normal 0-2 -[facility] [address] [place] Work Phone: Innumerable above high threshold 0-4 [facility] [address] [address] [place] Work Phone: Positive above high threshold Negative -[facility] [address] [place] Work Phone: 5.5\S\5.5 Normal 5.0-9.0 -[facility] [address] [place] Work Phone: 1.015\S\1.015 Normal 1.001-1.03 0 -[facility] [address] [address] [place] Work Phone: Turbid Critically abnormal Clear -[facility] [address] [place] Work Phone: Yellow Normal Yellow [facility] [address] [place] Work Phone: -[facility] [address] [address] [place] Work Phone: 21\S\21 Normal [facility] [address] [address] [place] Work Phone: 21.8\S\21.8 below low threshold 23.0-27.0 -[facility] [address] [address] [place] Work Phone: 7.2\S\7.2 Normal 6.6-9.7 -[facility] [address] [place] Work Phone: 95.4\S\95.4 Normal 95.0-100.0 -[facility] [address] [place] Work Phone: -2.7\S\-2.7 Normal -3.0-3.0 -[facility] [address] [place] Work Phone: 20.8\S\20.8 below low threshold 23.0-29.0 [facility] [address] [place] Work Phone: 76.9\S\76.9 below low threshold 80.0-100.0 [facility] [address] [address] [place] Work Phone: 32.1\S\32.1 below low threshold 35.0-45.0 [facility] [address] [address] [place] Work Phone: 7.43\S\7.43 Normal 7.35-7.45 [facility] [address] [place] Work Phone: Normal [facility] [address] [place] Work Phone: Comment on above: Critical Value gustafson d on: 06/23/2021 at 13:35PERFORMED BY:[place] [address] [address] YOST [id number] MEDICAL DIRECTORVITOR ZARATE M.D. Right Radial Normal [facility] [address] [place] Work Phone: 24.4\S\24.4 Normal 22.0-30.0 [facility] [address] [place] Work Phone: Comment on above: PERFORMED BY:[place] [address] YUM[address] OLIVA MD [id number] MEDICAL DIRECTORVITOR ZARATE M.D. 104\S\104 Normal 95-114 [facility] [address] [address] [place] Work Phone: 4.4\S\4.4 Normal 3.5-5.1 [facility] [address] [place] Work Phone: 141\S\141 Normal 136-146 -[facility] [address] [place] Work Phone: -[facility] [address] [place] Work Phone: Radiologyon 06-23-2021 Portable XR Chest Views Normal -[facility] [address] [place] Work Phone: BASIC METABOLIC PANELon 07-20 Calcium [Mass/Vol] 8.4 mg/dL Low 8.6-10.3 [facility] Comment on above: Order Comment: No: D o not add to previous draw Pt care Performed By: #### 0 0071 #### [facility] [address] [facility] [place] [address], [facility] Chloride [Moles/Vol] 105 mmol/L Normal 98-107 [facility] Comment on above: Order Comment: No: D o not add to previous draw Pt care Performed By: #### 0 0071 #### [facility] [address] [place] [address], [facility] CO2 [Moles/Vol] 23 mmol/L Normal 21-31 [facility] Comment on above: Order Comment: No: D o not add to previous draw Pt care Performed By: #### 0 0071 #### [facility] [address] [place] [address], [facility] Creatinine [Mass/Vol] 1.14 mg/dL Normal 0.60-1.20 The [facility] Comment on above: Order Comment: No: D o not add to previous draw Pt care Performed By: #### 0 0071 #### [facility] [address] [place] [address], [facility] GFR/1.73 sq M predicted among blacks MDRD (S/P/Bld) [Vol rate/Area] 56 ml/min/1.73sq m Abnormal >60 The [facility] Comment on above: Order Comment: No: D o not add to previous draw Pt care Result Comment: Calc ulation may not be valid for patients over 70 years Performed By: #### 0 0071 #### [facility] [address] [place] [address], [facility] GFR/1.73 sq M predicted among non-blacks MDRD (S/P/Bld) [Vol rate/Area] 46 ml/min/1.73sq m Abnormal >60 The [facility] Comment on above: Order Comment: No: D o not add to previous draw Pt care Result Comment: Calc ulation may not be valid for patients over 70 years Performed By: #### 0 0071 #### [facility] [address] [place] [address], [facility] Glucose [Mass/Vol] 151 mg/dL High 70-100 The [facility] Comment on above: Order Comment: No: D o not add to previous draw Pt care Performed By: #### 0 0071 #### [facility] [address] [place] [address], [facility] Potassium [Moles/Vol] 3.9 mmol/L Normal 3.5-5.1 The [facility] Comment on above: Order Comment: No: D o not add to previous draw Pt care Performed By: #### 0 0071 #### [facility] [address] [place] [address], [place] Sodium [Moles/Vol] 139 mmol/L Normal 136-145 The [facility] Comment on above: Order Comment: No: D o not add to previous draw Pt care Performed By: #### 0 0071 #### [facility] [address] [place] [address], [place] Urea nitrogen [Mass/Vol] 14 mg/dL Normal 7-25 The [facility] Comment on above: Order Comment: No: D o not add to previous draw Pt care Performed By: #### 0 0071 #### [facility] [address] [place] [address], [place] CTA CHESTon 07-31-2020 CTA CHEST [facility] Department of Radiology [address] [place] [address] Patient Name: LESA GOLDEN : 1940 Sex: F Age: Race: White Pt. Location: [id number] Patient Status: D Ordered Date: 07/31/2020 10:25:00 AM Completed Date: 07/31/2020 11:10 AM Requesting Provider: MARIETTA PINO Attending Provider: JELANI SORIA Report Copy To: Signs & Symptoms: Other History: See Comments Comments: Other, DX Atrial fib, CT chest with pulmonary Vein protocal please Exam: CTA CHEST CTA CHEST 07/31/2020 11:10 AM SIGNS AND SYMPTOMS: 79-year-old female with atrial fibrillation, shortness of breath TECHNOLOGIST COMMENTS: Atrial fib QUESTION FOR RADIOLOGISTS: Other, DX Atrial fib, CT chest with pulmonary Vein protocol please PROTOCOL: Axial CT angiography images were obtained with IV contrast. CONTRAST: Contrast: OMNIPAQUE 350 (LOCM), 100 milliliter, Intravenous TECHNIQUE: CT angiography of the chest performed utilizing thin section axial images with coronal and sagittal reformatted images generated. 3-D maximum intensity projection coronal and sagittal reformatted images generated and reviewed. Images acquired following the uneventful administration of 100 cc Omnipaque 350 nonionic intravenous contrast. Automated exposure control was utilized. COMPARISON: None. FINDINGS : 3-D Aorta: Normal three-vessel arch. No significant aortic calcifications. No aneurysmal dilation. Pulmonary arteries: Size within normal limits. No pulmonary artery filling defects. Lung parenchyma: Bilateral moderate pleural effusions with adjacent posterior compressive atelectasis. Mild right apical scarring. Pleura: Bilateral moderate pleural effusions. Airways: Grossly patent. Heart: The heart is normal in size. No significant coronary artery calcifications. Small amount of fluid in the superior aortic recess. Adenopathy: None. Spine and chest wall: Degenerative changes of the thoracic spine.. Lower neck and upper abdomen: 8 mm Hypoattenuating left thyroid nodule. No supraclavicular adenopathy. 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 Gallbladder contains a 2.4 cm cholelithiasis. IMPRESSION: * Moderate bilateral pleural effusions with adjacent compressive atelectasis. * Small amount of fluid in the superior aortic recess surrounding the aortic root is slightly more prominent than usual. Likely represents prominent recess, vasculitis is felt to be less likely. Low-density measuring about 1 Hounsfield unit * No evidence of acute pulmonary embolus. * Cholelithiasis. * Small thyroid nodules. Ultrasonography recommended All CT scans at this facility use dose modulation, iterative reconstruction, and/or weight based dosing when appropriate to reduce radiation dose to as low as reasonably achievable. Approved by:Santo Hollingsworth08/02/2020 8:10 AM. I, Drew Rios,have reviewed the images and reports Electronically signed: Drew Rios. Transcribed by: [email or web address], User Resident: SANTO LAZO Electronically Signed by: DREW RIOS @ 08/02/2020 09:34 AM I personally read this/these film(s) with this resident Normal The [facility] Comment on above: Order Comment: 12 ho urs post vitamin K administration/pre-procedure warfarin reversal No: Do not add to previous draw PROTHROMBIN TIMEon 0 INR Coag (PPP) [Relative time] 1.10 {INR} Normal 0.91-1.16 The [facility] Comment on above: Order Comment: No: D o not add to previous draw Result Comment: [facility] P RECOMMENDED INR FOR WARFARIN THERAPY --------- ------- CONDITION INR PROPHYLAXIS OF VENOUS THROMBOSIS 2-3 (HIGH-RISK SURGERY) TREATMENT OF VENOUS THROMBOSIS 2-3 TREATMENT OF PULMONARY EMBOLISM 2-3 PREVENTION OF SYSTEMIC EMBOLISM: 2-3 ACUTE MYOCARDIAL INFARCTION TISSUE HEART VALVES VALVULAR HEART DISEASE ATRIAL FIBRILLATION RECURRENT SYSTEMIC EMBOLISM MECHANICAL HEART VALVE 2.5-3.5 FROM: ORAL ANTICOAGULANTS. MECHANISM OF ACTION, CLINICAL EFFECTIVENESS, AND OPTIMAL THERAPEUTIC RANGE. CHEST 1995;108:231S-246S. Performed By: #### 0 0071, [id number] #### [facility] [address] PT Coag (PPP) [Time] 14.2 s Normal 12.3-14.8 The [facility] Comment on above: Order Comment: No: D o not add to previous draw Result Comment: ALL RESULTS MUST BE INTERPRETED WITH RESPECT TO BLOOD DRAWING ARTIFACT OR DILUTION ERROR OF ANTICOAGULANT AT THE TIME OF SAMPLING. Performed By: #### 0 0071, 81990 #### [facility] [address] UFH HEPARIN ASSAYon 07-31-20 20 UNFRACTIONATED HEPARIN 0.32 IU/mL Normal 0.30-0.70 Th e [facility] Comment on above: Result Comment: [place] roxaban and Apixaban will interfere with the anti Xa assay used to monitor UFH and LMWH. Performed By: #### 0 0071, [id number] #### [facility] [address] URINALYSIS REFLEXon 07-31-20 20 Appearance (U) CLOUDY Abnormal CLEAR The [facility] Comment on above: Order Comment: No: D o not add to previous draw Performed By: #### 5 8609, 18318, 23912 #### [facility] [address] [place] [address], [place] Bilirubin [Mass/Vol] Negative Normal NEGATIVE The [facility] Comment on above: Order Comment: No: D o not add to previous draw Performed By: #### 5 3629, 92395, 33367 #### [facility] [address] [place] [address], [place] BLOOD LARGE Abnormal NEGATIVE The [facility] Comment on above: Order Comment: No: D o not add to previous draw Performed By: #### 5 3629, 87807, 74709 #### [facility] [address] [place] [address], [place] Color (U) SABINA Abnormal YELLOW The [facility] Comment on above: Order Comment: No: D o not add to previous draw Performed By: #### 5 3628, 69585, 87466 #### [facility] [address] [place] [address], [place] EPIS MANY Abnormal FEW,OCC,NO NE SEEN The [facility] Comment on above: Order Comment: No: D o not add to previous draw Performed By: #### 5 9, 80627, 21377 #### [facility] [address] [place] [address], [place] Glucose [Mass/Vol] Negative Normal NEGATIVE The [facility] Comment on above: Order Comment: No: D o not add to previous draw Performed By: #### 5 9, 86777, 55848 #### [facility] [address] [place] [address], [place] KETONE Negative Normal NEGATIVE The [facility] Comment on above: Order Comment: No: D o not add to previous draw Performed By: #### 5 9, 25759, 74044 #### [facility] [address] [place] [address], [place] LEUK GEOFFREY MODERATE Abnormal NEGATIVE The [facility] Comment on above: Order Comment: No: D o not add to previous draw Performed By: #### 5 3628, 53212, 50656 #### [facility] [address] [place] [address], [facility] MUCUS THREADS FEW Abnormal NONE SEEN The [facility] Comment on above: Order Comment: No: D o not add to previous draw Performed By: #### 5 3628, 73694, 36911 #### [facility] [address] [place] [address], [facility] Nitrite Ql (U) Positive Abnormal NEGATIVE The [facility] Comment on above: Order Comment: No: D o not add to previous draw Performed By: #### 5 3628, 05720, 14350 #### [facility] [address] [place] [address], [facility] pH (Bld) 5.0 Normal 5.0-8.0 The [facility] Comment on above: Order Comment: No: D o not add to previous draw Performed By: #### 5 3628, 35538, 06796 #### [facility] [address] [place] [address], [facility] Protein (U) [Mass/Vol] 100 mg/dL Abnormal NEGATIVE Th e [facility] Comment on above: Order Comment: No: D o not add to previous draw Performed By: #### 5 3628, 58105, 04052 #### [facility] [address] [place] [address], [facility] RBC (U) [#/Vol] /uL Abnormal NONE SEEN The [facility] Comment on above: Order Comment: No: D o not add to previous draw Performed By: #### 5 362, 19731, 36182 #### [facility] [address] [place] [id number], [facility] SPEC GRAV 1.025 High 1.015-1.02 0 The [facility] Comment on above: Order Comment: No: D o not add to previous draw Performed By: #### 5 362, 78792, 47405 #### [facility] [address] [place] [address], [facility] WBC UA >100 Abnormal NONE SEEN The [facility] Comment on above: Order Comment: No: D o not add to previous draw Performed By: #### 5 3629, 90801, 93870 #### [facility] [address] [place] [address], [place] BASIC METABOLIC PANELon 07-20 Calcium [Mass/Vol] 8.1 mg/dL Low 8.6-10.3 The [facility] Comment on above: Order Comment: No: D o not add to previous draw Performed By: #### 0 0071 #### [facility] [address] [place] [address], [place] Chloride [Moles/Vol] 108 mmol/L High 98-107 The [facility] Comment on above: Order Comment: No: D o not add to previous draw Performed By: #### 0 0071 #### [facility] [address] [place] [address], [facility] CO2 [Moles/Vol] 24 mmol/L Normal 21-31 The [facility] Comment on above: Order Comment: No: D o not add to previous draw Performed By: #### 0 0071 #### [facility] [address] [place] [address], [place] Creatinine [Mass/Vol] 0.99 mg/dL Normal 0.60-1.20 The [facility] Comment on above: Order Comment: No: D o not add to previous draw Performed By: #### 0 0071 #### [facility] [address] [place] [address], [place] GFR/1.73 sq M predicted among blacks MDRD (S/P/Bld) [Vol rate/Area] mL/min/{1.73_m2} Normal >60 The [facility] Comment on above: Order Comment: No: D o not add to previous draw Result Comment: Calc ulation may not be valid for patients over 70 years Performed By: #### 0 0071 #### [facility] [address] [place] [address], [facility] GFR/1.73 sq M predicted among non-blacks MDRD (S/P/Bld) [Vol rate/Area] 54 ml/min/1.73sq m Abnormal >60 The [facility] Comment on above: Order Comment: No: D o not add to previous draw Result Comment: Calc ulation may not be valid for patients over 70 years Performed By: #### 0 0071 #### [facility] [address] [place] [address], [facility] Glucose [Mass/Vol] 104 mg/dL High 70-100 The [facility] Comment on above: Order Comment: No: D o not add to previous draw Performed By: #### 0 0071 #### [facility] [address] [place] [address], [facility] Potassium [Moles/Vol] 3.5 mmol/L Normal 3.5-5.1 The [facility] Comment on above: Order Comment: No: D o not add to previous draw Performed By: #### 0 0071 #### [facility] [address] [place] [address], [facility] Sodium [Moles/Vol] 141 mmol/L Normal 136-145 The [facility] Comment on above: Order Comment: No: D o not add to previous draw Performed By: #### 0 0071 #### [facility] [address] [place] [address], [facility] Urea nitrogen [Mass/Vol] 17 mg/dL Normal 7-25 The [facility] Comment on above: Order Comment: No: D o not add to previous draw Performed By: #### 0 0071 #### [facility] [address] [place] [address], [facility] CBC COMPLETE BLOOD COUNTon 1 09-30-2019 Erythrocyte distribution width (RBC) [Ratio] 17.3 % High 11.5-15.0 The [facility] Comment on above: Order Comment: 12 ho urs post vitamin K administration/pre-procedure warfarin reversal No: Do not add to previous draw Performed By: #### 5 6101 #### [facility] [address] [place] [address], [facility] Hematocrit (Bld) [Volume fraction] 37.7 % Normal 36.0-45.0 The [facility] Comment on above: Order Comment: 12 ho urs post vitamin K administration/pre-procedure warfarin reversal No: Do not add to previous draw Performed By: #### 5 6101 #### [facility] [address] [place] [address], [facility] Hemoglobin (Bld) [Mass/Vol] 12.0 g/dL Normal 12.0-15.0 The [facility] Comment on above: Order Comment: 12 ho urs post vitamin K administration/pre-procedure warfarin reversal No: Do not add to previous draw Performed By: #### 5 6101 #### [facility] [address] [place] [address], [facility] MCH (RBC) [Entitic mass] 29.0 pg Normal 27.0-33.0 The [facility] Comment on above: Order Comment: 12 ho urs post vitamin K administration/pre-procedure warfarin reversal No: Do not add to previous draw Performed By: #### 5 6101 #### [facility] [address] [place] [address], [facility] MCHC (RBC) [Mass/Vol] 31.8 g/dL Low 32.0-35.0 The [facility] Comment on above: Order Comment: 12 ho urs post vitamin K administration/pre-procedure warfarin reversal No: Do not add to previous draw Performed By: #### 5 6101 #### [facility] [address] [place] [address], [facility] MCV (RBC) [Entitic vol] 91.1 fL Normal 82.0-98.0 The [facility] Comment on above: Order Comment: 12 ho urs post vitamin K administration/pre-procedure warfarin reversal No: Do not add to previous draw Performed By: #### 5 6101 #### [facility] [address] [place] [address], [facility] Nucleated RBC/100 WBC (Bld) [Ratio] 0 % Normal 0-0 The [facility] Comment on above: Order Comment: 12 ho urs post vitamin K administration/pre-procedure warfarin reversal No: Do not add to previous draw Performed By: #### 5 6101 #### [facility] [address] [place] [address], [place] PLAT CNT 233 10*3/uL Normal 150-400 The [facility] Comment on above: Order Comment: 12 ho urs post vitamin K administration/pre-procedure warfarin reversal No: Do not add to previous draw Performed By: #### 5 6101 #### [facility] [address] [place] [address], [facility] RBC (Bld) [#/Vol] 4.14 10*6/uL Normal 3.80-5.00 The [facility] Comment on above: Order Comment: 12 ho urs post vitamin K administration/pre-procedure warfarin reversal No: Do not add to previous draw Performed By: #### 5 6101 #### [facility] [address] [place] [address], [facility] WBC (Bld) [#/Vol] 9.44 10*3/uL Normal 4.00-10.60 The [facility] Comment on above: Order Comment: 12 ho urs post vitamin K administration/pre-procedure warfarin reversal No: Do not add to previous draw Performed By: #### 5 6101 #### [facility] [address] [place] [address], [place] HEMATOCRITon 07-30-2020 Hematocrit (Bld) [Volume fraction] 43.9 % Normal 36.0-45.0 The [facility] Comment on above: Order Comment: No: D o not add to previous draw Performed By: #### 5 3629, 71685, 46815 #### [facility] [address] [place] [address], [place] HEMOGLOBINon 07-30-2020 Hemoglobin (Bld) [Mass/Vol] 13.5 g/dL Normal 12.0-15.0 The [facility] Comment on above: Order Comment: No: D o not add to previous draw Performed By: #### 5 3629, 55106, 01424 #### [facility] [address] [place] [address], [facility] PROTHROMBIN TIMEon 0 INR Coag (PPP) [Relative time] 1.22 {INR} High 0.91-1.16 The [facility] Comment on above: Order Comment: No: D o not add to previous draw Result Comment: [facility] P RECOMMENDED INR FOR WARFARIN THERAPY --------- ------- CONDITION INR PROPHYLAXIS OF VENOUS THROMBOSIS 2-3 (HIGH-RISK SURGERY) TREATMENT OF VENOUS THROMBOSIS 2-3 TREATMENT OF PULMONARY EMBOLISM 2-3 PREVENTION OF SYSTEMIC EMBOLISM: 2-3 ACUTE MYOCARDIAL INFARCTION TISSUE HEART VALVES VALVULAR HEART DISEASE ATRIAL FIBRILLATION RECURRENT SYSTEMIC EMBOLISM MECHANICAL HEART VALVE 2.5-3.5 FROM: ORAL ANTICOAGULANTS. MECHANISM OF ACTION, CLINICAL EFFECTIVENESS, AND OPTIMAL THERAPEUTIC RANGE. CHEST 1995;108:231S-246S. Performed By: #### 0 007, 22200 #### [facility] [address] [place] [address], [facility] PT Coag (PPP) [Time] 15.4 s High 12.3-14.8 The [facility] Comment on above: Order Comment: No: D o not add to previous draw Result Comment: ALL RESULTS MUST BE INTERPRETED WITH RESPECT TO BLOOD DRAWING ARTIFACT OR DILUTION ERROR OF ANTICOAGULANT AT THE TIME OF SAMPLING. Performed By: #### 0 0071, 85071 #### [facility] [address] [place] [address], [facility] UFH HEPARIN ASSAYon 07-30-20 UNFRACTIONATED HEPARIN 0.45 IU/mL Normal 0.30-0.70 Th e [facility] Comment on above: Result Comment: [place] roxaban and Apixaban will interfere with the anti Xa assay used to monitor UFH and LMWH. Performed By: #### 0 0071, 98766 #### [facility] [address] [place] [address], [facility] UNFRACTIONATED HEPARIN 0.52 IU/mL Normal 0.30-0.70 Th e [facility] Comment on above: Result Comment: [place] roxaban and Apixaban will interfere with the anti Xa assay used to monitor UFH and LMWH. Performed By: #### 0 0071, 66707 #### [facility] [address] APTTon 07-29-2020 aPTT Coag (Bld) [Time] s Critically high 25.0-35. 0 The [facility] Comment on above: Result Comment: ALL RESULTS MUST BE INTERPRETED WITH RESPECT TO BLOOD DRAWING ARTIFACT OR DILUTION ERROR OF ANTICOAGULANT AT THE TIME OF SAMPLING. THE APTT SHOULD NOT BE USED TO MONITOR UNFRACTIONATED HEPARIN THERAPY, THIS LABORATORY NO LONGER HAS AN ESTABLISHED THERAPEUTIC RANGE BASED ON THE APTT. IT IS RECOMMENDED THAT THE UFH - HEPARIN ASSAY (ANTI-XA ACTIVITY) BE USED FOR THIS PURPOSE. APTT RESULT REPEATED AND CONFIRMED CLINICAL SIGNIFICANCE OF THE PTT RESULT IS QUESTIONABLE IN THE PRESENCE OF HEPARIN. RESULTS CHECKED AND CALLED. ACCURATELY READ BACK BY SAEID RING RN @0210 Performed By: #### 0 0071, 31599 #### [facility] [address] [place] [address], [facility] BASIC METABOLIC PANELon - Calcium [Mass/Vol] 7.4 mg/dL Low 8.6-10.3 The [facility] Comment on above: Order Comment: No: D o not add to previous draw Performed By: #### 0 0071, 68651 #### [facility] [address] [place] [address], [place] Chloride [Moles/Vol] 101 mmol/L Normal 98-107 The [facility] Comment on above: Order Comment: No: D o not add to previous draw Performed By: #### 0 0071, 80151 #### [facility] [address] [place] [address], [place] CO2 [Moles/Vol] 24 mmol/L Normal 21-31 The [facility] Comment on above: Order Comment: No: D o not add to previous draw Performed By: #### 0 0071, 62460 #### [facility] [address] [place] [address], [place] Creatinine [Mass/Vol] 1.02 mg/dL Normal 0.60-1.20 The [facility] Comment on above: Order Comment: No: D o not add to previous draw Performed By: #### 0 0071, 99774 #### [facility] [address] [place] [address], [place] GFR/1.73 sq M predicted among blacks MDRD (S/P/Bld) [Vol rate/Area] mL/min/{1.73_m2} Normal >60 The [facility] Comment on above: Order Comment: No: D o not add to previous draw Result Comment: Calc ulation may not be valid for patients over 70 years Performed By: #### 0 0071, 32219 #### [facility] [address] [place] [address], [place] GFR/1.73 sq M predicted among non-blacks MDRD (S/P/Bld) [Vol rate/Area] 53 ml/min/1.73sq m Abnormal >60 The [facility] Comment on above: Order Comment: No: D o not add to previous draw Result Comment: Calc ulation may not be valid for patients over 70 years Performed By: #### 0 0071, 01578 #### [facility] [address] [place] [address], [facility] Glucose [Mass/Vol] 314 mg/dL High 70-100 The [facility] Comment on above: Order Comment: No: D o not add to previous draw Performed By: #### 0 0071, 32433 #### [facility] [address] [place] [address], [facility] Potassium [Moles/Vol] 3.1 mmol/L Low 3.5-5.1 The [facility] Comment on above: Order Comment: No: D o not add to previous draw Performed By: #### 0 0071, 67327 #### [facility] [address] [facility] [place] [address], [facility] Sodium [Moles/Vol] 139 mmol/L Normal 136-145 The [facility] Comment on above: Order Comment: No: D o not add to previous draw Performed By: #### 0 0071, [id number] #### [facility] [address] [facility] [place] [address], [facility] Urea nitrogen [Mass/Vol] 15 mg/dL Normal 7-25 The [facility] Comment on above: Order Comment: No: D o not add to previous draw Performed By: #### 0 0071, [id number] #### [facility] [address] [facility] [place] [address], [facility] MAGNESIUM BLOODon 07-29-2020 Magnesium [Mass/Vol] 1.5 mg/dL Low 1.9-2.7 The [facility] Comment on above: Order Comment: No: D o not add to previous draw Performed By: #### 0 0071, [id number] #### [facility] [address] [facility] [place] [address], [facility] PORTABLE CHEST 1 VIEWon 07-20 PORTABLE CHEST 1 VIEW [facility] Department of Radiology [address] [place] [id number] Patient Name: LESA GOLDEN : 1940 Sex: F Age: Race: White Pt. Location: [address] [place] [address] Patient Status: I Ordered Date: 07/29/2020 8:25:00 AM Completed Date: 07/29/2020 09:31 AM Requesting Provider: BRANDON STEWART Attending Provider: JELANI SORIA Report Copy To: Signs & Symptoms: Wheezing History: Comments: diminshed lung sounds, Exam: PORTABLE CHEST 1 VIEW PORTABLE CHEST 1 VIEW 07/29/2020 9:31 AM CLINICAL INDICATIONS: Wheezing TECHNOLOGIST COMMENTS: Wheezing QUESTION FOR THE RADIOLOGIST: diminshed lung sounds, PROTOCOL: AP(PA) view was obtained. COMPARISON: None FINDINGS: Haziness over the diaphragm suggests atelectasis. The mid-upper lung garcía remain clear. The heart mediastinum and pulmonary vascularity appear within normal limits. The trachea is in midline and the osseous structures are intact. IMPRESSION: Suggestion of bibasilar atelectasis. Electronically signed: Emmanuel Armas. Transcribed by: [email or web address], User Resident: Electronically Signed by: EMMANUEL ARMAS @ 07/29/2020 09:41 AM Normal The [facility] Comment on above: Order Comment: 12 ho urs post vitamin K administration/pre-procedure warfarin reversal No: Do not add to previous draw PROTHROMBIN TIMEon 0 INR Coag (PPP) [Relative time] 1.45 {INR} High 0.91-1.16 The [facility] Comment on above: Order Comment: No: D o not add to previous draw Result Comment: ACCC P RECOMMENDED INR FOR WARFARIN THERAPY --------- ------- CONDITION INR PROPHYLAXIS OF VENOUS THROMBOSIS 2-3 (HIGH-RISK SURGERY) TREATMENT OF VENOUS THROMBOSIS 2-3 TREATMENT OF PULMONARY EMBOLISM 2-3 PREVENTION OF SYSTEMIC EMBOLISM: 2-3 ACUTE MYOCARDIAL INFARCTION TISSUE HEART VALVES VALVULAR HEART DISEASE ATRIAL FIBRILLATION RECURRENT SYSTEMIC EMBOLISM MECHANICAL HEART VALVE 2.5-3.5 FROM: ORAL ANTICOAGULANTS. MECHANISM OF ACTION, CLINICAL EFFECTIVENESS, AND OPTIMAL THERAPEUTIC RANGE. CHEST 1995;108:231S-246S. Performed By: #### 0 0071, [id number] #### [facility] [address] PT Coag (PPP) [Time] 17.7 s High 12.3-14.8 The [facility] Comment on above: Order Comment: No: D o not add to previous draw Result Comment: ALL RESULTS MUST BE INTERPRETED WITH RESPECT TO BLOOD DRAWING ARTIFACT OR DILUTION ERROR OF ANTICOAGULANT AT THE TIME OF SAMPLING. Performed By: #### 0 0071, [id number] #### [facility] [address] [facility]. [address] UFH HEPARIN ASSAYon 07-29-20 20 UNFRACTIONATED HEPARIN 0.89 IU/mL High 0.30-0.70 Th e [facility] Comment on above: Result Comment: [place] roxaban and Apixaban will interfere with the anti Xa assay used to monitor UFH and LMWH. Performed By: #### 0 0071, [id number] #### [facility] [address] UNFRACTIONATED HEPARIN 0.78 IU/mL High 0.30-0.70 Th e [facility] Comment on above: Result Comment: Aracelis roxaban and Apixaban will interfere with the anti Xa assay used to monitor UFH and LMWH. Performed By: #### 0 0071, [id number] #### [facility] [address] [facility] [place] [address], [facility] UNFRACTIONATED HEPARIN >1.00 Critically high 0.30-0.7 0 The [facility] Comment on above: Order Comment: 12 ho urs post vitamin K administration/pre-procedure warfarin reversal No: Do not add to previous draw Result Comment: Aracelis roxaban and Apixaban will interfere with the anti Xa assay used to monitor UFH and LMWH. UFH=1.22 RESULTS CHECKED AND CALLED. ACCURATELY READ BACK BY SAEID RING RN @0210 Performed By: #### 5 [id number] #### [facility] [address] [facility] [place] [address], [facility] BASIC METABOLIC PANELon 12-0 -2020 Calcium [Mass/Vol] 8.5 mg/dL Low 8.6-10.3 The [facility] Comment on above: Order Comment: No: D o not add to previous draw Performed By: #### 0 0071 #### [facility] [address] [facility] [place] [address], [facility] Chloride [Moles/Vol] 108 mmol/L High 98-107 The [facility] Comment on above: Order Comment: No: D o not add to previous draw Performed By: #### 0 0071 #### [facility] [address] [facility] [place] [address], [facility] CO2 [Moles/Vol] 24 mmol/L Normal 21-31 The [facility] Comment on above: Order Comment: No: D o not add to previous draw Performed By: #### 0 0071 #### [facility] [address] [facility] [place] [address], [facility] Creatinine [Mass/Vol] 1.03 mg/dL Normal 0.60-1.20 The [facility] Comment on above: Order Comment: No: D o not add to previous draw Performed By: #### 0 0071 #### [facility] [address] [place] [address], [place] GFR/1.73 sq M predicted among blacks MDRD (S/P/Bld) [Vol rate/Area] mL/min/{1.73_m2} Normal >60 The [facility] Comment on above: Order Comment: No: D o not add to previous draw Result Comment: Calc ulation may not be valid for patients over 70 years Performed By: #### 0 0071 #### [facility] [address] [place] [address], [place] GFR/1.73 sq M predicted among non-blacks MDRD (S/P/Bld) [Vol rate/Area] 52 ml/min/1.73sq m Abnormal >60 The [facility] Comment on above: Order Comment: No: D o not add to previous draw Result Comment: Calc ulation may not be valid for patients over 70 years Performed By: #### 0 0071 #### [facility] [address] [place] [address], [place] Glucose [Mass/Vol] 120 mg/dL High 70-100 The [facility] Comment on above: Order Comment: No: D o not add to previous draw Performed By: #### 0 0071 #### [facility] [address] [place] [address], [place] Potassium [Moles/Vol] 3.7 mmol/L Normal 3.5-5.1 The [facility] Comment on above: Order Comment: No: D o not add to previous draw Performed By: #### 0 0071 #### [facility] [address] [place] [address], [place] Sodium [Moles/Vol] 141 mmol/L Normal 136-145 The [facility] Comment on above: Order Comment: No: D o not add to previous draw Performed By: #### 0 0071 #### [facility] [address] [place] [address], [place] Urea nitrogen [Mass/Vol] 24 mg/dL Normal 7-25 The [facility] Comment on above: Order Comment: No: D o not add to previous draw Performed By: #### 0 0071 #### [facility] [address] [place] [address], [facility] CBC COMPLETE BLOOD COUNTon 09-28-2019 Erythrocyte distribution width (RBC) [Ratio] 16.9 % High 11.5-15.0 The [facility] Comment on above: Order Comment: 12 ho urs post vitamin K administration/pre-procedure warfarin reversal No: Do not add to previous draw Performed By: #### 5 [id number] #### [facility] [address] [facility] [place] [address], [facility] Hematocrit (Bld) [Volume fraction] 40.8 % Normal 36.0-45.0 The [facility] Comment on above: Order Comment: 12 ho urs post vitamin K administration/pre-procedure warfarin reversal No: Do not add to previous draw Performed By: #### 5 [id number] #### [facility] [address] [place] [address], [facility] Hemoglobin (Bld) [Mass/Vol] 12.6 g/dL Normal 12.0-15.0 The [facility] Comment on above: Order Comment: 12 ho urs post vitamin K administration/pre-procedure warfarin reversal No: Do not add to previous draw Performed By: #### 5 [id number] #### [facility] [address] [place] [address], [facility] MCH (RBC) [Entitic mass] 28.5 pg Normal 27.0-33.0 The [facility] Comment on above: Order Comment: 12 ho urs post vitamin K administration/pre-procedure warfarin reversal No: Do not add to previous draw Performed By: #### 5 [id number] #### [facility] [address] [place] [address], [facility] MCHC (RBC) [Mass/Vol] 30.9 g/dL Low 32.0-35.0 The [facility] Comment on above: Order Comment: 12 ho urs post vitamin K administration/pre-procedure warfarin reversal No: Do not add to previous draw Performed By: #### 5 [id number] #### [facility] [address] [facility] [place] [address], [facility] MCV (RBC) [Entitic vol] 92.3 fL Normal 82.0-98.0 The [facility] Comment on above: Order Comment: 12 ho urs post vitamin K administration/pre-procedure warfarin reversal No: Do not add to previous draw Performed By: #### 5 [id number] #### [facility] [address] [place] [address], [facility] Nucleated RBC/100 WBC (Bld) [Ratio] 1 % High 0-0 The [facility] Comment on above: Order Comment: 12 ho urs post vitamin K administration/pre-procedure warfarin reversal No: Do not add to previous draw Performed By: #### 5 [id number] #### [facility] [address] [facility] [place] [address], [facility] PLAT CNT 245 10*3/uL Normal 150-400 The [facility] Comment on above: Order Comment: 12 ho urs post vitamin K administration/pre-procedure warfarin reversal No: Do not add to previous draw Performed By: #### 5 [id number] #### [facility] [address] [facility] [place] [address], [facility] RBC (Bld) [#/Vol] 4.42 10*6/uL Normal 3.80-5.00 The [facility] Comment on above: Order Comment: 12 ho urs post vitamin K administration/pre-procedure warfarin reversal No: Do not add to previous draw Performed By: #### 5 [id number] #### [facility] [address] [place] [address], [place] WBC (Bld) [#/Vol] 9.82 10*3/uL Normal 4.00-10.60 The [facility] Comment on above: Order Comment: 12 ho urs post vitamin K administration/pre-procedure warfarin reversal No: Do not add to previous draw Performed By: #### 5 [id number] #### [facility] [address] [place] [address], [facility] CT BRAIN WO CONTRASTon 07-28 CT BRAIN WO CONTRAST [facility] Department of Radiology [address] [place] [id number] Patient Name: LESA GOLDEN : 1940 Sex: F Age: Race: White Pt. Location: [id number] Patient Status: I Ordered Date: 07/28/2020 4:35:00 PM Completed Date: 07/28/2020 04:43 PM Requesting Provider: ABHILASH GO Attending Provider: JELANI SORIA Report Copy To: Signs & Symptoms: stroke alert in cathodic protection technician post wilmer History: stroke alert in cathodic protection technician post wilmer Comments: stroke alert in cathodic protection technician post wilmer Exam: CT BRAIN WO CONTRAST CT BRAIN WO CONTRAST 07/28/2020 4:43 PM CLINICAL INDICATIONS: stroke alert in cathodic protection technician post wilmer TECHNOLOGIST COMMENTS: left sided weakness QUESTION FOR THE RADIOLOGIST: stroke alert in cathodic protection technician post wilmer PROTOCOL: Axial CT images of the head were obtained without IV contrast. TECHNIQUE: Multidetector CT axial slices of the brain without IV contrast. Multiplanar reformats were performed and viewed on a separate workstation and reviewed to further define anatomy and possible pathology. All CT scans at this facility use dose modulation, iterative reconstruction, and/or weight based dosing when appropriate to reduce radiation dose to as low as reasonably achievable COMPARISON: None. FINDINGS: There is no evidence of a significant mass, mass effect, midline shift, or hemorrhage. The ventricles are normal in appearance. The basilar cisterns are patent. 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 Chronic white matter changes are present. IMPRESSION: No acute findings. Electronically signed: Asia Javier. Transcribed by: [email or web address], User Resident: Electronically Signed by: ASIA JAVIER @ 07/28/2020 04:48 PM Normal The [facility] Comment on above: Order Comment: 12 ho urs post vitamin K administration/pre-procedure warfarin reversal No: Do not add to previous draw CTA HEADon 07-28-2020 CTA HEAD [facility] Department of Radiology [address] [place] [id number] Patient Name: LESA GOLDEN : 1940 Sex: F Age: Race: White Pt. 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 CONTRAST: Contrast: OMNIPAQUE 350 (LOCM), 100 milliliter, Intravenous TECHNIQUE: Multi-detector CT angiography axial slices of the head were obtained before and during intravenous administration of IV contrast material. Sagittal, coronal, and 3-D reconstructions were performed and viewed on a separate workstation. All CT scans at this facility use dose modulation, iterative reconstruction, and/or weight based dosing when appropriate to reduce radiation dose to as low as reasonably achievable. COMPARISON: None. FINDINGS: Noncontrast head CT: There is no shift of the midline structures, acute intracranial bleeding, mass effects, or evidence of acute ischemia. The ventricular system is normal in size. The brainstem and the cerebellum are unremarkable. The visualized intraorbital contents, the visualized paranasal sinuses, and the visualized soft tissue in the infratemporal spaces show no abnormality. The osseous structures in the skull base and the calvarium show no acute abnormality. CTA: The superior cerebellar arteries, posterior inferior cerebellar arteries, and the basilar artery are within normal limits. The posterior cerebellar arteries are unremarkable. The intracranial segments of the internal carotid arteries are within normal limits. There are normal anterior and middle cerebral arteries. Anterior communicating artery is patent. Posterior communicating arteries are present. The deep venous system and dural venous systems appear to be patent. No bony abnormalities are appreciated. IMPRESSION: No acute intracranial pathology. No evidence of focal stenosis, aneurysmal dilatation, dissection or occlusion. Electronically signed: Asia Javier. Transcribed by: [email or web address], User Resident: Electronically Signed by: ASIA JAVIER @ 07/28/2020 05:16 PM Normal [facility] Comment on above: Order Comment: No: D o not add to previous draw CTA NECKon 07-28-2020 CTA NECK [facility] Department of Radiology [address] [place] [phone] Patient Name: LESA GOLDEN : 1940 Sex: F Age: Race: White Pt. 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 CONTRAST: TECHNIQUE: Multi-detector CT angiography axial slices of the neck were obtained during intravenous administration of IV contrast material. Sagittal, coronal, and 3-D reconstructions were performed and viewed on a separate workstation. The [place] Symptomatic Carotid Endarterectomy Trial (NASCET) method for calculating the degree of stenosis was utilized for stenosis measurements. COMPARISON: None. FINDINGS: There is a normal 3-vessel arch. The subclavian arteries are normal in course and caliber. The vertebral arteries are normal in course and caliber arising from the subclavian arteries. The superior cerebellar arteries, posterior inferior cerebellar arteries, and the basilar artery are within normal limits. The posterior cerebellar arteries are unremarkable. The common and internal carotid arteries are normal in course and caliber. There is calcific plaque at the carotid bulb bilaterally. I do not see significant stenosis. Intracranially there are normal anterior and middle cerebral arteries. The anterior communicating artery is patent. The posterior communicating arteries are present. The deep venous system and dural venous systems appear to be patent. No bony abnormalities are appreciated. The lung apices are within normal limits. IMPRESSION: No evidence of significant focal stenosis, aneurysmal dilatation, dissection or occlusion. There is calcific plaque at the carotid bulbs. Note is made of bilateral pleural effusions in the visualized upper lungs. All CT scans at this facility use dose modulation, iterative reconstruction, and/or weight based dosing when appropriate to reduce radiation dose to as low as reasonably achievable Electronically signed: Asia Javier. Transcribed by: [email or web address], User Resident: Electronically Signed by: ASIA JAVIER @ 07/28/2020 05:19 PM Normal The [facility] Comment on above: Order Comment: No: D o not add to previous draw Cardiovascular Lab Reporton 07-28-2020 Cardiovascular Lab Report [facility] Patient Name: [facility] MR #: [id number] Department of Physician: Alfredo Ring M.D. Division of Service Date: 07/28/2020 Cardiology Birthdate: 1940 Adult Cardiovascular Room #: 3AB 136204 [place] [address] Cardiovascular Laboratory Report PROCEDURE PERFORMED: Transesophageal echocardiogram and cardioversion. INDICATION: Atrial fibrillation. FELLOW: Hiwot Owens M.D. PROCEDURE IN DETAIL: An informed consent was obtained from the patient after explaining indications, risks and benefits, and alternatives. The patient understood and agreed and signed the consent form. The patient was brought to the cathodic protection technician and transesophageal echocardiogram was performed under conscious sedation. The patient obtained a total of 5.5 mg of Versed and 100 mcg of fentanyl during the procedure. The transesophageal echocardiogram did not show any thrombus in the left atrial appendage. Full WILMER report elsewhere. After the transesophageal echocardiogram, synchronized biphasic cardioversion was done with 360 joules of energy. The patient successfully converted to sinus rhythm as evidenced by EKG done postprocedure. No complications throughout the procedure. Electronically Signed by: Sanjuana Carrero M.D. 08/08/2020 06:09 P Sanjuana Carrero M.D. I was present for the entire procedure. Date Dict: 07/28/2020/03:55 P/Hiwot Owens MD Date Trans: 07/28/2020 04:12 P/boaz [id number] cc: Chester العلي D.O. [address] [place] [phone] Superior [facility] PROTHROMBIN TIMEon 0 INR Coag (PPP) [Relative time] 1.67 {INR} High 0.91-1.16 The [facility] Comment on above: Order Comment: No: D o not add to previous draw Result Comment: ACCC P RECOMMENDED INR FOR WARFARIN THERAPY --------- ------- CONDITION INR PROPHYLAXIS OF VENOUS THROMBOSIS 2-3 (HIGH-RISK SURGERY) TREATMENT OF VENOUS THROMBOSIS 2-3 TREATMENT OF PULMONARY EMBOLISM 2-3 PREVENTION OF SYSTEMIC EMBOLISM: 2-3 ACUTE MYOCARDIAL INFARCTION TISSUE HEART VALVES VALVULAR HEART DISEASE ATRIAL FIBRILLATION RECURRENT SYSTEMIC EMBOLISM MECHANICAL HEART VALVE 2.5-3.5 FROM: ORAL ANTICOAGULANTS. MECHANISM OF ACTION, CLINICAL EFFECTIVENESS, AND OPTIMAL THERAPEUTIC RANGE. CHEST 1995;108:231S-246S. Performed By: #### 0 0071, [id number] #### [facility] [address] PT Coag (PPP) [Time] 19.7 s High 12.3-14.8 [facility] Comment on above: Order Comment: No: D o not add to previous draw Result Comment: ALL RESULTS MUST BE INTERPRETED WITH RESPECT TO BLOOD DRAWING ARTIFACT OR DILUTION ERROR OF ANTICOAGULANT AT THE TIME OF SAMPLING. Performed By: #### 0 007, [id number] #### [facility] [address] INR Coag (PPP) [Relative time] 1.85 {INR} High 0.91-1.16 The [facility] Comment on above: Order Comment: 12 ho urs post vitamin K administration/pre-procedure warfarin reversal No: Do not add to previous draw Result Comment: ACCC P RECOMMENDED INR FOR WARFARIN THERAPY --------- ------- CONDITION INR PROPHYLAXIS OF VENOUS THROMBOSIS 2-3 (HIGH-RISK SURGERY) TREATMENT OF VENOUS THROMBOSIS 2-3 TREATMENT OF PULMONARY EMBOLISM 2-3 PREVENTION OF SYSTEMIC EMBOLISM: 2-3 ACUTE MYOCARDIAL INFARCTION TISSUE HEART VALVES VALVULAR HEART DISEASE ATRIAL FIBRILLATION RECURRENT SYSTEMIC EMBOLISM MECHANICAL HEART VALVE 2.5-3.5 FROM: ORAL ANTICOAGULANTS. MECHANISM OF ACTION, CLINICAL EFFECTIVENESS, AND OPTIMAL THERAPEUTIC RANGE. CHEST 1995;108:231S-246S. Performed By: #### 5 [id number] #### [facility] [address] [facility] [place] [address], [facility] PT Coag (PPP) [Time] 21.4 s High 12.3-14.8 [facility] Comment on above: Order Comment: 12 ho urs post vitamin K administration/pre-procedure warfarin reversal No: Do not add to previous draw Result Comment: ALL RESULTS MUST BE INTERPRETED WITH RESPECT TO BLOOD DRAWING ARTIFACT OR DILUTION ERROR OF ANTICOAGULANT AT THE TIME OF SAMPLING. Performed By: #### 5 [id number] #### [facility] [address] [facility]. [address] UFH HEPARIN ASSAYon 07-28-20 20 UNFRACTIONATED HEPARIN >1.00 Critically high 0.30-0.7 0 [facility] Comment on above: Result Comment: [place] roxaban and Apixaban will interfere with the anti Xa assay used to monitor UFH and LMWH. Results called. Accurately read back by Khushbu Shetty RN at 1415. Patient given a bolus of heparin prior to draw, causing elevated heparin levels Performed By: #### 5 [id number] #### [facility] [address] [facility] [place] [address], [facility] UNFRACTIONATED HEPARIN 0.38 IU/mL Normal 0.30-0.70 [facility] [facility] Comment on above: Result Comment: [place] roxaban and Apixaban will interfere with the anti Xa assay used to monitor UFH and LMWH. Performed By: #### 0 0071, 86977 #### [facility] [address] [facility] [place] [address], [facility] APTTon 07-27-2020 aPTT Coag (Bld) [Time] 39.6 s High 25.0-35.0 Th e [facility] Comment on above: Order Comment: No: D o not add to previous draw Result Comment: ALL RESULTS MUST BE INTERPRETED WITH RESPECT TO BLOOD DRAWING ARTIFACT OR DILUTION ERROR OF ANTICOAGULANT AT THE TIME OF SAMPLING. THE APTT SHOULD NOT BE USED TO MONITOR UNFRACTIONATED HEPARIN THERAPY, THIS LABORATORY NO LONGER HAS AN ESTABLISHED THERAPEUTIC RANGE BASED ON THE APTT. IT IS RECOMMENDED THAT THE UFH - HEPARIN ASSAY (ANTI-XA ACTIVITY) BE USED FOR THIS PURPOSE. Performed By: #### 5 3629, 35634, 45532 #### [facility] [address] [facility] [place] [address], [facility] aPTT Coag (Bld) [Time] 47.4 s High 25.0-35.0 Th e [facility] Comment on above: Result Comment: ALL RESULTS MUST BE INTERPRETED WITH RESPECT TO BLOOD DRAWING ARTIFACT OR DILUTION ERROR OF ANTICOAGULANT AT THE TIME OF SAMPLING. THE APTT SHOULD NOT BE USED TO MONITOR UNFRACTIONATED HEPARIN THERAPY, THIS LABORATORY NO LONGER HAS AN ESTABLISHED THERAPEUTIC RANGE BASED ON THE APTT. IT IS RECOMMENDED THAT THE UFH - HEPARIN ASSAY (ANTI-XA ACTIVITY) BE USED FOR THIS PURPOSE. Performed By: #### 5 6101 #### [facility] [address] [facility] [place] [address], [facility] LIPID PROFILEon 07-27-2020 Cholesterol [Mass/Vol] 173 mg/dL Normal 120-200 Th e [facility] Comment on above: Result Comment: CHOL ESTEROL REFERENCE RANGE: 20 YEARS AND OLDER CARDIOVASCULAR RISK Less than 200 mg/dl Low Risk 200 to 239 mg/dl Borderline Risk 240 mg/dl and greater High Risk Performed By: #### 5 3629, 97283, 77165 #### [facility] [address] [place] [address], [facility] Cholesterol in HDL [Mass/Vol] 33 mg/dL Normal 23-92 The [facility] Comment on above: Result Comment: Slig ht variation in normal range could be due to gender and/or age. HDL CHOLESTEROL REFERENCE RANGE: 20 years and older Cardiovascular Risk > or =60 mg/dL Desirable 40 TO 59 mg/dL Low Risk <40 mg/dL High Risk Performed By: #### 5 3629, 51014, 86099 #### [facility] [address] [place] [address], [facility] Cholesterol in LDL [Mass/Vol] 98 mg/dL Normal 0-130 The [facility] Comment on above: Result Comment: LDL IS A CALCULATION LDL IS ONLY VALID IF THE TRIG IS LESS THAN 400. Performed By: #### 5 3629, 34101, 81314 #### [facility] [address] [facility] [place] [address], [facility] Cholesterol.total/Chol esterol in HDL [Mass ratio] 5.2 {ratio} High 0.0-4.5 The [facility] Comment on above: Performed By: #### 5 3629, 63465, 41585 #### [facility] [address] [place] [address], [place] NON-HDL CHOLESTEROL 140 mg/dL Normal The [facility] Comment on above: Performed By: #### 5 3629, 14433, 87803 #### [facility] [address] [place] [address], [place] Triglyceride [Mass/Vol] 210 mg/dL High 40-149 The [facility] Comment on above: Result Comment: TRIG LYCERIDE REFERENCE RANGE: 20 YEARS AND OLDER CARDIOVASCULAR RISK LESS THAN 150 mg/dl LOW RISK 150 TO 199 mg/dl BORDERLINE RISK 200 mg/dl AND GREATER HIGH RISK Performed By: #### 5 1939, 79407, 16548 #### [facility] [address] [place] [address], [facility] VLDL CHOL 42 mg/dL High 0-40 The [facility] Comment on above: Performed By: #### 5 2579, 36437, 35233 #### [facility] [address] [place] [address], [facility] PROTHROMBIN TIMEon 0 INR Coag (PPP) [Relative time] 2.07 {INR} High 0.91-1.16 The [facility] Comment on above: Result Comment: ACCC P RECOMMENDED INR FOR WARFARIN THERAPY --------- ------- CONDITION INR PROPHYLAXIS OF VENOUS THROMBOSIS 2-3 (HIGH-RISK SURGERY) TREATMENT OF VENOUS THROMBOSIS 2-3 TREATMENT OF PULMONARY EMBOLISM 2-3 PREVENTION OF SYSTEMIC EMBOLISM: 2-3 ACUTE MYOCARDIAL INFARCTION TISSUE HEART VALVES VALVULAR HEART DISEASE ATRIAL FIBRILLATION RECURRENT SYSTEMIC EMBOLISM MECHANICAL HEART VALVE 2.5-3.5 FROM: ORAL ANTICOAGULANTS. MECHANISM OF ACTION, CLINICAL EFFECTIVENESS, AND OPTIMAL THERAPEUTIC RANGE. CHEST 1995;108:231S-246S. Performed By: #### 5 9229, 99181, 13801 #### [facility] [address] [place] [address], [facility] PT Coag (PPP) [Time] 23.4 s High 12.3-14.8 The [facility] Comment on above: Result Comment: ALL RESULTS MUST BE INTERPRETED WITH RESPECT TO BLOOD DRAWING ARTIFACT OR DILUTION ERROR OF ANTICOAGULANT AT THE TIME OF SAMPLING. Performed By: #### 5 3629, 03828, 34517 #### [facility] [address] [place] [address], [facility] INR Coag (PPP) [Relative time] 3.07 {INR} High 0.91-1.16 The [facility] Comment on above: Order Comment: 12 ho urs post vitamin K administration/pre-procedure warfarin reversal No: Do not add to previous draw Result Comment: ACCC P RECOMMENDED INR FOR WARFARIN THERAPY --------- ------- CONDITION INR PROPHYLAXIS OF VENOUS THROMBOSIS 2-3 (HIGH-RISK SURGERY) TREATMENT OF VENOUS THROMBOSIS 2-3 TREATMENT OF PULMONARY EMBOLISM 2-3 PREVENTION OF SYSTEMIC EMBOLISM: 2-3 ACUTE MYOCARDIAL INFARCTION TISSUE HEART VALVES VALVULAR HEART DISEASE ATRIAL FIBRILLATION RECURRENT SYSTEMIC EMBOLISM MECHANICAL HEART VALVE 2.5-3.5 FROM: ORAL ANTICOAGULANTS. MECHANISM OF ACTION, CLINICAL EFFECTIVENESS, AND OPTIMAL THERAPEUTIC RANGE. CHEST 1995;108:231S-246S. Performed By: #### 5 6101 #### [facility] [address] [place] [address], [place] PT Coag (PPP) [Time] 32.0 s High 12.3-14.8 The [facility] Comment on above: Order Comment: 12 ho urs post vitamin K administration/pre-procedure warfarin reversal No: Do not add to previous draw Result Comment: ALL RESULTS MUST BE INTERPRETED WITH RESPECT TO BLOOD DRAWING ARTIFACT OR DILUTION ERROR OF ANTICOAGULANT AT THE TIME OF SAMPLING. Performed By: #### 5 0521 #### [facility] [address] TROPONIN-Ion 07-27-2020 Troponin I.cardiac [Mass/Vol] 0.01 ng/mL Normal 0.00-0.04 [facility] [place] Comment on above: Order Comment: No: D o not add to previous draw Result Comment: REFE RENCE RANGES: 0.00 - 0.04 ng/ml NORMAL 0.05 - 0.50 ng/ml INDETERMINATE > 0.50 ng/ml CONSISTENT WITH AN M.I. Performed By: #### 5 3629, 45872, 60870 #### [facility] [address] [facility]. [address] UFH HEPARIN ASSAYon 07-27-20 20 UNFRACTIONATED HEPARIN <0.10 Critically low 0.30-0.70 [facility] [place] Comment on above: Result Comment: [place] roxaban and Apixaban will interfere with the anti Xa assay used to monitor UFH and LMWH. RESULTS CHECKED AND CALLED. ACCURATELY READ BACK BY Saeid Lees RN at 2122. Performed By: #### 5 3629, 68103, 81789 #### [facility] [address] [facility]. [address] APTTon 07-26-2020 aPTT Coag (Bld) [Time] 44.0 s High 25.0-35.0 Th e [facility] Comment on above: Order Comment: No: D o not add to previous draw Result Comment: ALL RESULTS MUST BE INTERPRETED WITH RESPECT TO BLOOD DRAWING ARTIFACT OR DILUTION ERROR OF ANTICOAGULANT AT THE TIME OF SAMPLING. THE APTT SHOULD NOT BE USED TO MONITOR UNFRACTIONATED HEPARIN THERAPY, THIS LABORATORY NO LONGER HAS AN ESTABLISHED THERAPEUTIC RANGE BASED ON THE APTT. IT IS RECOMMENDED THAT THE UFH - HEPARIN ASSAY (ANTI-XA ACTIVITY) BE USED FOR THIS PURPOSE. Performed By: #### 5 3629, 95661, 03434 #### [facility] [address] [place] [address], [facility] BASIC METABOLIC PANELon Calcium [Mass/Vol] 8.4 mg/dL Low 8.6-10.3 The [facility] Comment on above: Order Comment: No: D o not add to previous draw Performed By: #### 5 3629, 50138, 51842 #### [facility] [address] [place] [address], [place] Chloride [Moles/Vol] 107 mmol/L Normal 98-107 The [facility] Comment on above: Order Comment: No: D o not add to previous draw Performed By: #### 5 3629, 99043, 67782 #### [facility] [address] [place] [address], [place] CO2 [Moles/Vol] 23 mmol/L Normal 21-31 The [facility] Comment on above: Order Comment: No: D o not add to previous draw Performed By: #### 5 3629, 35992, 97901 #### [facility] [address] [place] [address], [place] Creatinine [Mass/Vol] 1.00 mg/dL Normal 0.60-1.20 The [facility] Comment on above: Order Comment: No: D o not add to previous draw Performed By: #### 5 3629, 78906, 27289 #### [facility] [address] [place] [address], [place] GFR/1.73 sq M predicted among blacks MDRD (S/P/Bld) [Vol rate/Area] mL/min/{1.73_m2} Normal >60 The [facility] Comment on above: Order Comment: No: D o not add to previous draw Result Comment: Calc ulation may not be valid for patients over 70 years Performed By: #### 5 3629, 50370, 28948 #### [facility] [address] [place] [address], [place] GFR/1.73 sq M predicted among non-blacks MDRD (S/P/Bld) [Vol rate/Area] 53 ml/min/1.73sq m Abnormal >60 The [facility] Comment on above: Order Comment: No: D o not add to previous draw Result Comment: Calc ulation may not be valid for patients over 70 years Performed By: #### 5 3629, 68487, 79334 #### [facility] [address] [place] [address], [place] Glucose [Mass/Vol] 144 mg/dL High 70-100 The [facility] Comment on above: Order Comment: No: D o not add to previous draw Performed By: #### 5 362, 73109, 89424 #### [facility] [address] [place] [address], [place] Potassium [Moles/Vol] 3.9 mmol/L Normal 3.5-5.1 The [facility] Comment on above: Order Comment: No: D o not add to previous draw Performed By: #### 5 362, 37368, 00810 #### [facility] [address] [place] [address], [place] Sodium [Moles/Vol] 139 mmol/L Normal 136-145 The [facility] Comment on above: Order Comment: No: D o not add to previous draw Performed By: #### 5 3629, 98959, 05979 #### [facility] [address] [place] [address], [place] Urea nitrogen [Mass/Vol] 24 mg/dL Normal 7-25 The [facility] Comment on above: Order Comment: No: D o not add to previous draw Performed By: #### 5 3629, 19899, 07861 #### [facility] [address] [place] [address], [place] BNP (B-TYPE NATRIURETIC PEPT BALTA)on 07-26-2020 Natriuretic peptide B (Bld) [Mass/Vol] 259 pg/mL High 0-100 The [facility] Comment on above: Order Comment: No: D o not add to previous draw Result Comment: Give n the appropriate clinical setting a BNP result of >100 pg/mL indicates congestive heart failure. Performed By: #### 5 3629, 62450, 78029 #### [facility] [address] [facility] [place] [address], [facility] CBC W/DIFFon 07-26-2020 ABS BASOPHILS 0.1 10*3/uL Normal 0.0-0.2 The [facility] Comment on above: Order Comment: 12 ho urs post vitamin K administration/pre-procedure warfarin reversal No: Do not add to previous draw Performed By: #### 5 6101 #### [facility] [address] [facility] ABS IMM GRANS 0.3 10*3/uL High 0.0-0.2 The [facility] Comment on above: Order Comment: 12 ho urs post vitamin K administration/pre-procedure warfarin reversal No: Do not add to previous draw Performed By: #### 5 6101 #### [facility] [address] [facility] [facility] ABS NEUTROPHILS 5.9 10*3/uL Normal 1.6-7.6 The [facility] Comment on above: Order Comment: 12 ho urs post vitamin K administration/pre-procedure warfarin reversal No: Do not add to previous draw Performed By: #### 5 6101 #### [facility] [address] Basophils/100 WBC (Bld) 0.8 % Normal 0.0-1.0 The [facility] Comment on above: Order Comment: 12 ho urs post vitamin K administration/pre-procedure warfarin reversal No: Do not add to previous draw Performed By: #### 5 6101 #### [facility] [address] [facility] [place] [address], [facility] Eosinophils (Bld) [#/Vol] 0.4 10*3/uL Normal 0.0-0.5 The [facility] Comment on above: Order Comment: 12 ho urs post vitamin K administration/pre-procedure warfarin reversal No: Do not add to previous draw Performed By: #### 5 6101 #### [facility] [address] [facility] [place] [address], [facility] Eosinophils/100 WBC (Bld) 3.8 % Normal 0.0-6.0 The [facility] Comment on above: Order Comment: 12 ho urs post vitamin K administration/pre-procedure warfarin reversal No: Do not add to previous draw Performed By: #### 5 6101 #### [facility] [address] [place] [address], [facility] Erythrocyte distribution width (RBC) [Ratio] 16.9 % High 11.5-15.0 The [facility] Comment on above: Order Comment: 12 ho urs post vitamin K administration/pre-procedure warfarin reversal No: Do not add to previous draw Performed By: #### 5 6101 #### [facility] [address] [facility] [place] [address], [facility] Hematocrit (Bld) [Volume fraction] 43.8 % Normal 36.0-45.0 The [facility] Comment on above: Order Comment: 12 ho urs post vitamin K administration/pre-procedure warfarin reversal No: Do not add to previous draw Performed By: #### 5 [id number] #### [facility] [address] [facility] [place] [address], [facility] Hemoglobin (Bld) [Mass/Vol] 13.7 g/dL Normal 12.0-15.0 The [facility] Comment on above: Order Comment: 12 ho urs post vitamin K administration/pre-procedure warfarin reversal No: Do not add to previous draw Performed By: #### 5 6101 #### [facility] [address] [place] [id number], [facility] IMMATURE GRANS 3.6 % High 0.0-1.0 The [facility] Comment on above: Order Comment: 12 ho urs post vitamin K administration/pre-procedure warfarin reversal No: Do not add to previous draw Performed By: #### 5 6101 #### [facility] [address] [place] [address], [facility] Lymphocytes (Bld) [#/Vol] 2.1 10*3/uL Normal 1.2-4.0 The [facility] Comment on above: Order Comment: 12 ho urs post vitamin K administration/pre-procedure warfarin reversal No: Do not add to previous draw Performed By: #### 5 6101 #### [facility] [address] Lymphocytes/100 WBC (Bld) 22.0 % Normal 20.0-45.0 The [facility] Comment on above: Order Comment: 12 ho urs post vitamin K administration/pre-procedure warfarin reversal No: Do not add to previous draw Performed By: #### 5 6101 #### [facility] [address] [place] [address], [facility] MCH (RBC) [Entitic mass] 29.0 pg Normal 27.0-33.0 The [facility] Comment on above: Order Comment: 12 ho urs post vitamin K administration/pre-procedure warfarin reversal No: Do not add to previous draw Performed By: #### 5 6101 #### [facility] [address] MCHC (RBC) [Mass/Vol] 31.3 g/dL Low 32.0-35.0 The [facility] Comment on above: Order Comment: 12 ho urs post vitamin K administration/pre-procedure warfarin reversal No: Do not add to previous draw Performed By: #### 5 6101 #### [facility] [address] [place] [address], [facility] MCV (RBC) [Entitic vol] 92.6 fL Normal 82.0-98.0 The [facility] Comment on above: Order Comment: 12 ho urs post vitamin K administration/pre-procedure warfarin reversal No: Do not add to previous draw Performed By: #### 5 6101 #### [facility] [address] [place] [address], [facility] Monocytes (Bld) [#/Vol] 0.7 10*3/uL Normal 0.1-1.0 The [facility] Comment on above: Order Comment: 12 ho urs post vitamin K administration/pre-procedure warfarin reversal No: Do not add to previous draw Performed By: #### 5 6101 #### [facility] [address] [place] [address], [facility] MONOS 7.5 % Normal 5.0-12.0 The [facility] Comment on above: Order Comment: 12 ho urs post vitamin K administration/pre-procedure warfarin reversal No: Do not add to previous draw Performed By: #### 5 6101 #### [facility] [address] [place] [address], [facility] Neutrophils/100 WBC (Bld) 62.3 % Normal 40.0-72.0 The [facility] Comment on above: Order Comment: 12 ho urs post vitamin K administration/pre-procedure warfarin reversal No: Do not add to previous draw Performed By: #### 5 6101 #### [facility] [address] [place] [address], [facility] Nucleated RBC/100 WBC (Bld) [Ratio] 1 % High 0-0 The [facility] Comment on above: Order Comment: 12 ho urs post vitamin K administration/pre-procedure warfarin reversal No: Do not add to previous draw Performed By: #### 5 [id number] #### [facility] [address] [place] [address], [facility] PLAT CNT 296 10*3/uL Normal 150-400 The [facility] Comment on above: Order Comment: 12 ho urs post vitamin K administration/pre-procedure warfarin reversal No: Do not add to previous draw Performed By: #### 5 6101 #### [facility] [address] [place] [address], [place] RBC (Bld) [#/Vol] 4.73 10*6/uL Normal 3.80-5.00 The [facility] Comment on above: Order Comment: 12 ho urs post vitamin K administration/pre-procedure warfarin reversal No: Do not add to previous draw Performed By: #### 5 6101 #### [facility] [address] [place] [address], [place] WBC (Bld) [#/Vol] 9.48 10*3/uL Normal 4.00-10.60 The [facility] Comment on above: Order Comment: 12 ho urs post vitamin K administration/pre-procedure warfarin reversal No: Do not add to previous draw Performed By: #### 5 6101 #### [facility] [address] [facility]. [address] CPK-MB PROFILEon 07-26-2020 CK [Catalytic activity/Vol] 24 U/L Low 30-223 The [facility] Comment on above: Order Comment: No: D o not add to previous draw Performed By: #### 1 0070, 00260, 81357, 22385, 80465, 10349 #### [facility] [address] CK.MB [Mass/Vol] 1.5 ng/mL Normal 0.0-5.0 The [facility] Comment on above: Order Comment: No: D o not add to previous draw Result Comment: IF T OTAL CK <200 U/L AND: 1. CKMB IS 5-10 NG/ML----BORDERLINE 2. CKMB IS >10 NG/ML----INDICATIVE OF [place] OR IF TOTAL CK >200 U/L AND CKMB INDEX >1.9----INDIC[place]IVE [place] Performed By: #### 1 0070, 65338, 52314, 78355, 16431, 17830 #### [facility] [address] [facility] [place] [address], [facility] CK.MB [Mass/Vol] 6.3 ng/mL Critically high 0.0-1.9 The [facility] Comment on above: Order Comment: No: D o not add to previous draw Performed By: #### 1 0070, 54463, 31003, 27920, 02994, 23969 #### [facility] [address] [place] [address], [facility] D DIMER TESTon 07-26-2020 D-DIMER TEST 2.34 mcg/mL FEU High 0.27-0.49 The [facility] Comment on above: Order Comment: No: D o not add to previous draw Result Comment: D-Di ricky values of less than 0.50 ug/ml (FEU) are considered to be a negative predictor of thrombosis. However, the D-Dimer result should be used in conjunction with pretest probability and should not be used alone to diagnose a thrombotic event. Performed By: #### 5 3629, 87225, 31748 #### [facility] [address] History and Physicalon 07-26 History and Physical MR#: [id number] [facility] Pt. Name: Lesa Golden Admitted: 07/26/2020 Date of : 1940 Attending Physician: Jaqueline Quevedo M.D. Room #: [facility] [id number] Discharge Date: HISTORY AND PHYSICAL CHIEF COMPLAINT: Shortness of breath. HISTORY OF PRESENT ILLNESS: The patient is a 79-year-old female with a past medical history of atrial fibrillation, on Coumadin, fibromyalgia, hypertension, and history of COVID at the beginning of June, presented to [facility] as a direct transfer from [facility] ER. The patient presented to the ER today because of increasing shortness of breath. She states that it especially got worse over the weekends, so she came to the ER for evaluation. In the ER, she was found to be in atrial fibrillation with RVR and cardiology was called, so they requested the patient to be transferred to [facility]. Her initial heart rate was 120 to 140s and she received a bolus of the Cardizem and then she was started on Cardizem drip and her heart rate improved. Her BNP and troponin were also founds slightly elevated. The patient is on Coumadin for atrial fibrillation. Initially, she was started on Eliquis, but then developed a rash and was switched to Coumadin. Unfortunately, her INR is also found to be elevated at 4.6. The patient reports that her last stress test was around 3 years ago. She otherwise denies chest pain. No fevers or chills. No cough. No headaches. No leg swelling. No edema. No weight gain. No abdominal pain. MEDICATIONS: See the list. ALLERGIES: Sulfa. PAST SURGERIES: Hernia repair, appendectomy, tonsillectomy, foot surgery in her right. PAST MEDICAL HISTORY: Hypertension, atrial fibrillation on Coumadin, fibromyalgia, back pain, depression. SOCIAL HISTORY: The patient is never smoker. No alcohol or drug use. She lives with her spouse. FAMILY HISTORY: Positive for heart problems and hypertension in her father, brain tumor in her mother, and hypertension in her sister. REVIEW OF SYSTEMS: Review of systems was done was otherwise negative except pertinent positive findings mentioned in HPI. PHYSICAL EXAMINATION: VITAL SIGNS: 124/107, respiration 27, heart rate 94, BMI 21.1. GENERAL: The patient is alert and oriented x3, in mild respiratory distress. She is able to speak short sentences only. Seems dyspneic. HEENT: Eyes; no conjunctival erythema. Ears; normal hearing bilaterally. RESPIRATORY: Diminished breath sounds bilaterally. No wheezing, rhonchi, or crackles. CARDIOVASCULAR: Irregularly irregular heart rate slightly tachycardic. No murmurs, rubs, or gallops. ABDOMEN: Soft, nondistended, nontender. No rigidity or rebound. EXTREMITIES: No pitting pedal edema. SKIN: Warm, dry to touch. No skin rash. NEUROLOGIC: No gross sensory or motor deficits. PSYCHIATRIC: Normal affect and mood. LABORATORY DATA: From [facility] ER shows white blood cells 9.1, hemoglobin 13.4, hematocrit 42.7, platelets 298. EKG shows atrial fibrillation with RVR. BNP was 2226 with normal less than 1800. Troponin 0.043, 1st set and then 2nd set 0.040. Norm is less than 0.034. Sodium 142, potassium 3.8, chloride 107, CO2 OF 23, BUN 28, creatinine 1.31, glucose 151, INR 4.89, PTT 47.4, PTT 36.4. Chest x-ray shows mild interstitial prominence of the lungs. Cardiomegaly. ASSESSMENT: Shortness of breath, atrial fibrillation with rapid ventricular response, congestive heart failure exacerbation, elevated troponins, supratherapeutic INR, acute kidney injury, hypertension, fibromyalgia, back pain, depression. PLAN: The patient is admitted to step-down telemetry bed. 1. Atrial fibrillation with RVR: We will continue patient on Cardizem drip to control her heart rate. We will consult Cardiology. The patient will be kept n.p.o. after midnight for possible if needed procedure tomorrow. 2. We will hold on Coumadin and hold on heparin drip since the patient's INR is supratherapeutic. We will consult pharmacology to dose Coumadin in the future. 3. CHF exacerbation: Elevated troponin: We will order echo, trend troponin. The patient denies chest pain. She does not seem fluid overloaded on exam. We will order labs again today. 4. JACQUES: The patient seems dry: We will give her 50 mL/h of normal saline for the next 12 hours. 5. We will resume patient's home medications and order labs. 6. DVT and GI prophylaxis. 7. PT, OT, and Hcc Coders for discharge planning. Electronically Signed by: Jaqueline Quevedo M.D. 07/27/2020 10:46 A Jaqueline Quevedo M.D. Date Dict: 07/26/2020/06:24 P/Jaqueline Quevedo M.D. Date Trans: 07/26/2020 07:50 P/mmo [id number] Normal [facility] LIVER BATTERYon 07-26-2020 Albumin [Mass/Vol] 3.4 g/dL Low 3.5-5.7 [facility] Comment on above: Order Comment: No: D o not add to previous draw Performed By: #### 5 [id number], [id number], [id number] #### [facility] [address] [place] [address], [facility] ALKALINE PHOSPH 82 IU/L Normal 34-104 [facility] Comment on above: Order Comment: No: D o not add to previous draw Performed By: #### 5 [id number], [id number], [id number] #### [facility] [address] [place] [address], [facility] ALT [Catalytic activity/Vol] 28 U/L Normal 7-52 [facility] Comment on above: Order Comment: No: D o not add to previous draw Performed By: #### 5 [id number], [id number], [id number] #### [facility] [address] [place] [address], [facility] AST [Catalytic activity/Vol] 26 U/L Normal 13-39 [facility] Comment on above: Order Comment: No: D o not add to previous draw Performed By: #### 5 [id number], 96109, 16832 #### [facility] [address] [place] [address], [place] Bilirubin [Mass/Vol] 0.6 mg/dL Normal 0.3-1.0 [facility] Comment on above: Order Comment: No: D o not add to previous draw Performed By: #### 5 [id number], [id number], [id number] #### [facility] [address] [place] [address], [place] Bilirubin.direct [Mass/Vol] 0.2 mg/dL Normal 0.0-0.2 [facility] Comment on above: Order Comment: No: D o not add to previous draw Performed By: #### 5 [id number], [id number], [id number] #### [facility] [address] [place] [address], [place] Protein [Mass/Vol] 5.8 g/dL Low 6.0-8.3 [facility] Comment on above: Order Comment: No: D o not add to previous draw Performed By: #### 5 [id number], [id number], 95170 #### [facility] [address] [place] [address], [place] MAGNESIUM BLOODon 07-26-2020 Magnesium [Mass/Vol] 1.8 mg/dL Low 1.9-2.7 [facility] Comment on above: Order Comment: No: D o not add to previous draw Performed By: #### 5 [id number], 59053, 47091 #### [facility] [address] [place] [address], [place] PHOSPHORUS BLOODon 0 Phosphate [Mass/Vol] 3.4 mg/dL Normal 2.5-5.0 [facility] Comment on above: Order Comment: No: D o not add to previous draw Performed By: #### 5 [id number], 00156, [id number] #### [facility] [address] [place] [address], [facility] PROTHROMBIN TIMEon 0 INR Coag (PPP) [Relative time] 3.23 {INR} High 0.91-1.16 [facility] Comment on above: Order Comment: No: D o not add to previous draw Result Comment: ACCC P RECOMMENDED INR FOR WARFARIN THERAPY --------- ------- CONDITION INR PROPHYLAXIS OF VENOUS THROMBOSIS 2-3 (HIGH-RISK SURGERY) TREATMENT OF VENOUS THROMBOSIS 2-3 TREATMENT OF PULMONARY EMBOLISM 2-3 PREVENTION OF SYSTEMIC EMBOLISM: 2-3 ACUTE MYOCARDIAL INFARCTION TISSUE HEART VALVES VALVULAR HEART DISEASE ATRIAL FIBRILLATION RECURRENT SYSTEMIC EMBOLISM MECHANICAL HEART VALVE 2.5-3.5 FROM: ORAL ANTICOAGULANTS. MECHANISM OF ACTION, CLINICAL EFFECTIVENESS, AND OPTIMAL THERAPEUTIC RANGE. CHEST 1995;108:231S-246S. Performed By: #### 5 [id number], 16043, 36073 #### [facility] [address] [place] [address], [facility] PT Coag (PPP) [Time] 33.3 s High 12.3-14.8 [facility] Comment on above: Order Comment: No: D o not add to previous draw Result Comment: ALL RESULTS MUST BE INTERPRETED WITH RESPECT TO BLOOD DRAWING ARTIFACT OR DILUTION ERROR OF ANTICOAGULANT AT THE TIME OF SAMPLING. Performed By: #### 5 [id number], 27915, 10911 #### [facility] [address] [place] [address], [facility] TROPONIN-Ion 07-26-2020 Troponin I.cardiac [Mass/Vol] 0.01 ng/mL Normal 0.00-0.04 [facility] Comment on above: Order Comment: No: D o not add to previous draw Result Comment: REFE RENCE RANGES: 0.00 - 0.04 ng/ml NORMAL 0.05 - 0.50 ng/ml INDETERMINATE > 0.50 ng/ml CONSISTENT WITH AN M.I. Performed By: #### 5 3629, 57325, 41957 #### [facility] [address] [place] [address], [facility] Vital Signs Date Time Vital Sign Value Performing Clinician Facility 11-27-2023 15:07-0400 Body height 160.02 cm DO Chester Ball Work Phone: [facility] 11-27-2023 15:07-0400 Body mass index (BMI) [Ratio] 29.1 kg/m2 DO Chester Ball Work Phone: [facility] 11-27-2023 15:07-0400 Body weight 74.61 kg DO Chester Ball Work Phone: [facility] 11-27-2023 15:07-0400 Diastolic blood pressure 83 mm[Hg] DO Chester Ball Work Phone: [facility] 11-27-2023 15:07-0400 Heart rate 116 /min DO Chester Ball Work Phone: [facility] 11-27-2023 15:07-0400 Respiratory rate 12 /min DO Chester Ball Work Phone: [facility] 11-27-2023 15:07-0400 Systolic blood pressure 135 mm[Hg] DO Chester Ball Work Phone: [facility] 09-19-2023 13:07-0500 Body height 149.9 cm Debbie Mac MD Work Phone: [facility] 09-19-2023 13:07-0500 Body mass index (BMI) [Ratio] 33.2 kg/m2 Debbie Mac MD Work Phone: [facility] 09-19-2023 13:07-0500 Body weight 74.57 kg Debbie Mac MD Work Phone: [facility] 09-19-2023 13:07-0500 Diastolic blood pressure 92 mm[Hg] Debbie Mac MD Work Phone: [facility] 09-19-2023 13:07-0500 Heart rate 91 /min Debbie Mac MD Work Phone: [facility] 09-19-2023 13:07-0500 Systolic blood pressure 126 mm[Hg] Debbie Mac MD Work Phone: [facility] 08-21-2023 13:27-0500 Body height 149.[address] 08-21-2023 13:27-0500 Body mass index (BMI) [Ratio] 33.33 kg/m2 [address] 08-21-2023 13:27-0500 Body weight 74.[address] 08-21-2023 13:27-0500 Diastolic blood pressure 64 mm[Hg] [address] 08-21-2023 13:27-0500 Systolic blood pressure 116 mm[Hg] [address] 08-19-2023 12:15-0500 Body height 160.02 cm Sabina Garcia Other [employer] Other 05-31-2023 15:24-0400 Body height 149.9 cm Debbie Mac MD Work Phone: [facility] 05-31-2023 15:24-0400 Body mass index (BMI) [Ratio] 33.33 kg/m2 Debbie Mac MD Work Phone: [facility] 05-31-2023 15:24-0400 Body weight 74.84 kg Debbie Mac MD Work Phone: [facility] 05-31-2023 15:24-0400 Diastolic blood pressure 64 mm[Hg] Debbie Mac MD Work Phone: [facility] 05-31-2023 15:24-0400 Heart rate 70 /min Debbie Mac MD Work Phone: [facility] 05-31-2023 15:24-0400 Systolic blood pressure 122 mm[Hg] Debbie Mac MD Work Phone: [facility] 03-21-2023 15:00-0400 Body height 160.02 cm Chester Ball Other [employer] Other 03-21-2023 15:00-0400 Body mass index (BMI) [Ratio] 28.62 kg/m2 Chester Ball Other [employer] Other 03-21-2023 15:00-0400 Body weight 73.3 kg Chester Ball Other [employer] Other 03-21-2023 15:00-0400 Diastolic blood pressure 79 mm[Hg] Chester Ball Other [employer] Other 03-21-2023 15:00-0400 Respiratory rate 12 /min Chester Ball Other [employer] Other 03-21-2023 15:00-0400 Systolic blood pressure 124 mm[Hg] Chester Ball Other [employer] Other 03-05-2023 14:42-0400 Diastolic blood pressure 76 mm[Hg] DO Chester Ball Work Phone: [facility] 03-05-2023 14:42-0400 Heart rate 92 /min DO Chester Ball Work Phone: [facility] 03-05-2023 14:42-0400 Inhaled oxygen flow rate 3 L/min DO Chester Ball Work Phone: [facility] 03-05-2023 14:42-0400 Respiratory rate 16 /min DO Chester Ball Work Phone: [facility] 03-05-2023 14:42-0400 SaO2% (BldA) [Mass fraction] 93 % DO Chester Ball Work Phone: [facility] 03-05-2023 14:42-0400 Systolic blood pressure 129 mm[Hg] DO Chester Ball Work Phone: [facility] 03-05-2023 13:48-0400 Body temperature 97 [degF] DO Chester Ball Work Phone: [facility] 03-05-2023 09:23-0400 Body height 149.86 cm DO Chester Ball Work Phone: [facility] 03-05-2023 09:23-0400 Body weight 73 kg DO Chester Ball Work Phone: [facility] 01-25-2023 13:09-0400 Body height 149.86 cm Chester E Ball Work Phone: [facility] Work Phone: 01-25-2023 13:09-0400 Body mass index (BMI) [Ratio] 32.52 kg/m2 Chester E Ball Work Phone: [facility] Work Phone: 01-25-2023 13:09-0400 Body surface area Derived from formula 1.68 m2 Chester E Ball Work Phone: [facility] Work Phone: 01-25-2023 13:09-0400 Body weight 73.03 kg Chester E Ball Work Phone: [facility] Work Phone: 01-25-2023 13:09-0400 Diastolic blood pressure 78 mm[Hg] Chester E Ball Work Phone: [facility] Work Phone: 01-25-2023 13:09-0400 Heart rate 72 /min Chester E Ball Work Phone: [facility] Work Phone: 01-25-2023 13:09-0400 Systolic blood pressure 126 mm[Hg] Chester E Ball Work Phone: [facility] Work Phone: 01-09-2023 17:07-0400 Diastolic blood pressure 98 mm[Hg] DO Chester Ball Work Phone: [facility] 01-09-2023 17:07-0400 Heart rate 70 /min DO Chester Ball Work Phone: [facility] 01-09-2023 17:07-0400 Respiratory rate 14 /min DO Chester Ball Work Phone: [facility] 01-09-2023 17:07-0400 SaO2% (BldA) [Mass fraction] 95 % DO Chester Ball Work Phone: [facility] 01-09-2023 17:07-0400 Systolic blood pressure 130 mm[Hg] DO Chester Ball Work Phone: [facility] 01-09-2023 10:54-0400 Body height 149.86 cm DO Chester Ball Work Phone: [facility] 01-09-2023 10:54-0400 Body temperature 98.6 [degF] DO Chesetr Ball Work Phone: [facility] 01-09-2023 10:54-0400 Body weight 73.2 kg DO Chester Ball Work Phone: [facility] 01-04-2023 14:23-0400 Body height 149.86 cm Chester E Ball Work Phone: [facility] Work Phone: 01-04-2023 14:23-0400 Body mass index (BMI) [Ratio] 32.52 kg/m2 Chester Hahn Ball Work Phone: [facility] Work Phone: 01-04-2023 14:23-0400 Body surface area Derived from formula 1.68 m2 Chester E Ball Work Phone: [facility] Work Phone: 01-04-2023 14:23-0400 Body weight 73.03 kg Chester E Ball Work Phone: [facility] Work Phone: 01-04-2023 14:23-0400 Diastolic blood pressure 88 mm[Hg] Chester E Ball Work Phone: 7(444)043-[address] [place] [address] Work Phone: 01-04-2023 14:23-0400 Heart rate 76 /min Chester E Ball Work Phone: 0(693)265-46[address] [place] [address] Work Phone: 01-04-2023 14:23-0400 Systolic blood pressure 128 mm[Hg] Chester Hahn Ball Work Phone: [facility] Work Phone: 01-03-2023 14:05-0400 Body height 149.86 cm Chester Hahn Ball Work Phone: 3(882)310-743887 [place] [address] Work Phone: 01-03-2023 14:05-0400 Body mass index (BMI) [Ratio] 33.12 kg/m2 Chester Hahn Ball Work Phone: [facility] Work Phone: 01-03-2023 14:05-0400 Body surface area Derived from formula 1.69 m2 Chester E Ball Work Phone: [facility] Work Phone: 01-03-2023 14:05-0400 Body weight 74.39 kg Chester E Ball Work Phone: [facility] Work Phone: 01-03-2023 14:05-0400 Diastolic blood pressure 62 mm[Hg] Chester E Ball Work Phone: [facility] Work Phone: 01-03-2023 14:05-0400 Heart rate 70 /min Chester E Ball Work Phone: [facility] Work Phone: 01-03-2023 14:05-0400 Systolic blood pressure 118 mm[Hg] Chester E Ball Work Phone: [facility] Work Phone: 12-25-2022 13:41-0400 Diastolic blood pressure 84 mm[Hg] Chester E Ball Work Phone: [facility] Work Phone: 12-25-2022 13:41-0400 Heart rate 107 /min Chester E Ball Work Phone: [facility] Work Phone: 12-25-2022 13:41-0400 Respiratory rate 16 /min Chester E Ball Work Phone: [facility] Work Phone: 12-25-2022 13:41-0400 SaO2% (BldA) [Mass fraction] 96 % Chester E Ball Work Phone: [facility] Work Phone: 12-25-2022 13:41-0400 Systolic blood pressure 132 mm[Hg] Chester E Ball Work Phone: [facility] Work Phone: 11-27-2022 09:24-0400 Body height 149.86 cm DO Chester Ball Work Phone: [facility] 11-27-2022 09:24-0400 Body temperature 98 [degF] DO Chester Ball Work Phone: [facility] 11-27-2022 09:24-0400 Body weight 73 kg DO Chester Ball Work Phone: [facility] 11-27-2022 09:24-0400 Diastolic blood pressure 82 mm[Hg] DO Chester Ball Work Phone: [facility] 11-27-2022 09:24-0400 Heart rate 105 /min DO Chester Ball Work Phone: [facility] 11-27-2022 09:24-0400 Respiratory rate 18 /min DO Chester Ball Work Phone: [facility] 11-27-2022 09:24-0400 SaO2% (BldA) [Mass fraction] 97 % DO Chester Ball Work Phone: [facility] 11-27-2022 09:24-0400 Systolic blood pressure 136 mm[Hg] DO Chester Ball Work Phone: [facility] 10-24-2022 14:30-0500 Body height 160.02 cm Rachel Larios Other [facility] [employer] Other 10-24-2022 14:30-0500 Body mass index (BMI) [Ratio] 28.16 kg/m2 Rachel Larios Other [facility] [employer] Other 10-24-2022 14:30-0500 Body weight 72.12 kg Rachel Larios Other [facility] [employer] Other 10-24-2022 14:30-0500 Diastolic blood pressure 98 mm[Hg] Rachel Larios Other [facility] [employer] Other 10-24-2022 14:30-0500 SaO2% (BldA) [Mass fraction] 97 % aRchel Larios Other [facility] [employer] Other 10-24-2022 14:30-0500 Systolic blood pressure 152 mm[Hg] Rachel Larios Other [facility] [employer] Other 10-13-2022 10:48-0500 Body height 149.86 cm Chester E Ball Work Phone: [facility] 250 DO Work Phone: 10-13-2022 10:48-0500 Body mass index (BMI) [Ratio] 32.11 kg/m2 Chester Hahn Ball Work Phone: [facility] [employer] 250 DO Work Phone: 10-13-2022 10:48-0500 Body surface area Derived from formula 1.67 m2 Chester E Ball Work Phone: [facility] [employer] 250 DO Work Phone: 10-13-2022 10:48-0500 Body weight 72.12 kg Chester E Ball Work Phone: [facility] 250 DO Work Phone: 10-13-2022 10:48-0500 Diastolic blood pressure 66 mm[Hg] Chester E Ball Work Phone: [facility] [employer] 250 DO Work Phone: 10-13-2022 10:48-0500 Heart rate 72 /min Chester Hahn Ball Work Phone: [facility] [employer] 250 DO Work Phone: 10-13-2022 10:48-0500 Systolic blood pressure 98 mm[Hg] Chester E Ball Work Phone: [facility] [employer] 250 DO Work Phone: 09-27-2022 13:36-0500 Body height 149.86 cm Chester Hahn Ball Work Phone: [facility] 250 DO Work Phone: 09-27-2022 13:36-0500 Body mass index (BMI) [Ratio] 31.91 kg/m2 Chester E Ball Work Phone: [facility] 250 DO Work Phone: 09-27-2022 13:36-0500 Body surface area Derived from formula 1.67 m2 Chester E Ball Work Phone: [facility] 250 DO Work Phone: 09-27-2022 13:36-0500 Body weight 71.67 kg Chester E Ball Work Phone: [facility] 250 DO Work Phone: 09-27-2022 13:36-0500 Diastolic blood pressure 86 mm[Hg] Chester E Ball Work Phone: [facility] 250 DO Work Phone: 09-27-2022 13:36-0500 Heart rate 70 /min Chester E Ball Work Phone: [facility] 250 DO Work Phone: 09-27-2022 13:36-0500 Systolic blood pressure 122 mm[Hg] Chester E Ball Work Phone: [facility] 250 DO Work Phone: 09-21-2022 16:34-0500 Body temperature 97.8 [degF] DO Chester Ball Work Phone: [facility] 09-21-2022 16:34-0500 Diastolic blood pressure 77 mm[Hg] DO Chester Ball Work Phone: [facility] 09-21-2022 16:34-0500 Heart rate 68 /min DO Chester Ball Work Phone: [facility] 09-21-2022 16:34-0500 Respiratory rate 18 /min DO Chester Ball Work Phone: [facility] 09-21-2022 16:34-0500 SaO2% (BldA) [Mass fraction] 96 % DO Chester Ball Work Phone: [facility] 09-21-2022 16:34-0500 Systolic blood pressure 134 mm[Hg] DO Chester Ball Work Phone: [facility] 09-21-2022 06:00-0500 Body weight 73.2 kg DO Chester Ball Work Phone: [facility] 09-17-2022 15:30-0500 Diastolic blood pressure 81 mm[Hg] DO Chester Ball Work Phone: [facility] 09-17-2022 15:30-0500 Heart rate 75 /min DO Chester Ball Work Phone: [facility] 09-17-2022 15:30-0500 Respiratory rate 16 /min DO Chester Ball Work Phone: [facility] 09-17-2022 15:30-0500 SaO2% (BldA) [Mass fraction] 96 % DO Chester Ball Work Phone: [facility] 09-17-2022 15:30-0500 Systolic blood pressure 139 mm[Hg] DO Chester Ball Work Phone: [facility] 09-17-2022 14:00-0500 Body height 149.86 cm DO Chester Ball Work Phone: [facility] 09-17-2022 14:00-0500 Body weight 72.1 kg DO Chester Ball Work Phone: [facility] 09-17-2022 13:00-0500 Body temperature 97.8 [degF] DO Chester Ball Work Phone: [facility] 09-12-2022 16:00-0500 Body height 160.02 cm Chester Ball Other [facility] [employer] Other 09-12-2022 16:00-0500 Body mass index (BMI) [Ratio] 28.02 kg/m2 Chester Ball Other [facility] Other 09-12-2022 16:00-0500 Body weight 71.76 kg Chester Ball Other [facility] Other 09-12-2022 16:00-0500 Diastolic blood pressure 76 mm[Hg] Chester Ball Other [employer] Other 09-12-2022 16:00-0500 Respiratory rate 12 /min Chester Ball Other [facility] Other 09-12-2022 16:00-0500 SaO2% (BldA) [Mass fraction] 97 % Chester Ball Other [facility] Other 09-12-2022 16:00-0500 Systolic blood pressure 132 mm[Hg] Chester Ball Other [facility] Other 09-06-2022 07:32-0500 Body temperature 97 [degF] DO Chester Ball Work Phone: [facility] 09-06-2022 07:32-0500 Diastolic blood pressure 83 mm[Hg] DO Chester Ball Work Phone: [facility] 09-06-2022 07:32-0500 Heart rate 92 /min DO Chester Ball Work Phone: [facility] 09-06-2022 07:32-0500 Respiratory rate 18 /min DO Chester Ball Work Phone: [facility] 09-06-2022 07:32-0500 SaO2% (BldA) [Mass fraction] 94 % DO Chester Ball Work Phone: [facility] 09-06-2022 07:32-0500 Systolic blood pressure 141 mm[Hg] DO Chester Ball Work Phone: [facility] 09-06-2022 06:00-0500 Body weight 70.1 kg DO Chester Ball Work Phone: [facility] 09-04-2022 14:04-0500 Body height 149.86 cm DO Chester Ball Work Phone: [facility] 09-04-2022 12:21-0500 40 1 Chester E Ball Work Phone: [facility] 250 DO Work Phone: Comment on above: [id number] 09-01-2022 22:47-0500 Diastolic blood pressure 85 mm[Hg] DO Chester Ball Work Phone: [facility] 09-01-2022 22:47-0500 Heart rate 98 /min DO Chester Ball Work Phone: [facility] 09-01-2022 22:47-0500 Systolic blood pressure 151 mm[Hg] DO Chester Ball Work Phone: [facility] 09-01-2022 22:30-0500 Respiratory rate 26 /min DO Chester Ball Work Phone: [facility] 09-01-2022 22:30-0500 SaO2% (BldA) [Mass fraction] 98 % DO Chester Ball Work Phone: [facility] 09-01-2022 12:07-0500 Body height 149.86 cm DO Chester Ball Work Phone: [facility] 09-01-2022 12:07-0500 Body temperature 98.3 [degF] DO Chester Ball Work Phone: [facility] 09-01-2022 12:07-0500 Body weight 73 kg DO Chester Ball Work Phone: [facility] 08-24-2022 10:03-0500 Body height 149.86 cm Chester E Ball Work Phone: [facility] [employer] 250 DO Work Phone: 08-24-2022 10:03-0500 Body mass index (BMI) [Ratio] 32.92 kg/m2 Chester E Ball Work Phone: [facility] 250 DO Work Phone: 08-24-2022 10:03-0500 Body surface area Derived from formula 1.69 m2 Chester E Ball Work Phone: [facility] 250 DO Work Phone: 08-24-2022 10:03-0500 Body weight 73.94 kg Chester E Ball Work Phone: [facility] 250 DO Work Phone: 08-24-2022 10:03-0500 Diastolic blood pressure 98 mm[Hg] Chester E Ball Work Phone: [facility] 250 DO Work Phone: 08-24-2022 10:03-0500 Heart rate 112 /min Chester Hahn Ball Work Phone: [facility] 250 DO Work Phone: 08-24-2022 10:03-0500 Systolic blood pressure 132 mm[Hg] Chester E Ball Work Phone: [facility] [employer] 250 DO Work Phone: 06-26-2022 14:26-0500 Body height 149.86 cm Chester Hahn Ball Work Phone: [facility] [employer] 250 DO Work Phone: 06-26-2022 14:26-0500 Body mass index (BMI) [Ratio] 32.92 kg/m2 Chester Hahn Ball Work Phone: [facility] [employer] 250 DO Work Phone: 06-26-2022 14:26-0500 Body surface area Derived from formula 1.69 m2 Chester Hahn Ball Work Phone: [facility] [employer] [facility] 250 DO Work Phone: 06-26-2022 14:26-0500 Body weight 73.94 kg Chester Hahn Ball Work Phone: [facility] 250 DO Work Phone: 06-26-2022 14:26-0500 Diastolic blood pressure 70 mm[Hg] Chester E Ball Work Phone: [facility] 250 DO Work Phone: 06-26-2022 14:26-0500 Heart rate 71 /min Chester E Ball Work Phone: [facility] [place] 250 DO Work Phone: 06-26-2022 14:26-0500 Systolic blood pressure 132 mm[Hg] Chester E Ball Work Phone: [facility] [employer] 250 DO Work Phone: 04-27-2022 14:30-0400 Body height 160.02 cm John Felicita Other [employer] Other 04-27-2022 14:30-0400 Body mass index (BMI) [Ratio] 27.45 kg/m2 John Felicita Other [employer] Other 04-27-2022 14:30-0400 Body weight 70.31 kg John Fleicita Other [employer] Other 03-10-2022 10:53-0400 Diastolic blood pressure 82 mm[Hg] Chester E Ball Work Phone: [facility] [employer] DO Work Phone: 03-10-2022 10:53-0400 Systolic blood pressure 126 mm[Hg] Chester E Ball Work Phone: [facility] [employer] 250 DO Work Phone: 03-10-2022 10:19-0400 Body height 149.86 cm Chester E Ball Work Phone: [facility] [place] 250 DO Work Phone: 03-10-2022 10:19-0400 Body mass index (BMI) [Ratio] 31.91 kg/m2 Chester E Ball Work Phone: [facility] [place] 250 DO Work Phone: 03-10-2022 10:19-0400 Body surface area Derived from formula 1.67 m2 Chester E Ball Work Phone: [facility] [employer] 250 DO Work Phone: 03-10-2022 10:19-0400 Body weight 71.67 kg Chester E Ball Work Phone: [facility] [employer] 250 DO Work Phone: 03-10-2022 10:19-0400 Diastolic blood pressure 80 mm[Hg] Chester E Ball Work Phone: [facility] [place] 250 DO Work Phone: 03-10-2022 10:19-0400 Heart rate 78 /min Chester E Ball Work Phone: [facility] [place] 250 DO Work Phone: 03-10-2022 10:19-0400 Systolic blood pressure 146 mm[Hg] Chester E Ball Work Phone: [facility] [place] 250 DO Work Phone: 02-28-2022 15:45-0400 Body height 160.02 cm John Mims Other [facility] [employer] Other 02-28-2022 15:45-0400 Body mass index (BMI) [Ratio] 27.45 kg/m2 John Mims Other [facility] [employer] Other 02-28-2022 15:45-0400 Body weight 70.31 kg John Mims Other [facility] [employer] Other 02-28-2022 15:32-0400 Body weight 0 kg DO Chester Ball Work Phone: [facility] 12-15-2021 08:46-0400 Body weight 0 kg DO Chester Ball Work Phone: [facility] 10-19-2021 16:04-0500 Body height 149.86 cm Chester E Ball Work Phone: [facility]-[place] 250 DO Work Phone: 10-19-2021 16:04-0500 Body mass index (BMI) [Ratio] 29.13 kg/m2 Chester E Ball Work Phone: [facility]-[place] 250 DO Work Phone: 10-19-2021 16:04-0500 Body surface area Derived from formula 1.6 m2 Chester Hahn Ball Work Phone: [facility]-[place] 250 DO Work Phone: 10-19-2021 16:04-0500 Body weight 65.41 kg Chester Hahn Ball Work Phone: [facility] [employer] 250 DO Work Phone: 10-19-2021 16:04-0500 Diastolic blood pressure 76 mm[Hg] Chester Hahn Ball Work Phone: [facility] [employer] 250 DO Work Phone: 10-19-2021 16:04-0500 Heart rate 70 /min Chester Hahn Ball Work Phone: [facility] 250 DO Work Phone: 10-19-2021 16:04-0500 Systolic blood pressure 110 mm[Hg] Chester Hahn Ball Work Phone: [facility] 250 DO Work Phone: 07-26-2021 14:31-0500 Body height 149.86 cm Chester Hahn Ball Work Phone: [facility] 250 DO Work Phone: 07-26-2021 14:31-0500 Body mass index (BMI) [Ratio] 29.49 kg/m2 Chester Hahn Ball Work Phone: [facility] [employer] 250 DO Work Phone: 07-26-2021 14:31-0500 Body surface area Derived from formula 1.61 m2 Chester Hahn Ball Work Phone: [facility] 250 DO Work Phone: 07-26-2021 14:31-0500 Body weight 66.23 kg Chester E Ball Work Phone: [facility] 250 DO Work Phone: 07-26-2021 14:31-0500 Diastolic blood pressure 80 mm[Hg] Chester Hahn Ball Work Phone: [facility] 250 DO Work Phone: 07-26-2021 14:31-0500 Heart rate 70 /min Chester Hahn Ball Work Phone: [facility] [employer] 250 DO Work Phone: 07-26-2021 14:31-0500 Systolic blood pressure 124 mm[Hg] Chester Hahn Ball Work Phone: [facility] [employer] 250 DO Work Phone: 07-06-2021 15:54-0500 Body height 149.86 cm Chester Hahn Ball Work Phone: [facility] [employer] 250 DO Work Phone: 07-06-2021 15:54-0500 Body mass index (BMI) [Ratio] 28.48 kg/m2 Chester Hahn Ball Work Phone: [facility] 250 DO Work Phone: 07-06-2021 15:54-0500 Body surface area Derived from formula 1.59 m2 Chester Hahn Ball Work Phone: [facility] 250 DO Work Phone: 07-06-2021 15:54-0500 Body temperature 97.2 [degF] Chester Hahn Ball Work Phone: [facility] [employer] 250 DO Work Phone: 07-06-2021 15:54-0500 Body weight 63.96 kg Chester E Ball Work Phone: [facility] 250 DO Work Phone: 07-06-2021 15:54-0500 Diastolic blood pressure 49 mm[Hg] Chester E Ball Work Phone: [facility] 250 DO Work Phone: 07-06-2021 15:54-0500 Heart rate 73 /min Chester E Ball Work Phone: [facility] 250 DO Work Phone: 07-06-2021 15:54-0500 Systolic blood pressure 95 mm[Hg] Chester E Ball Work Phone: [facility] 250 DO Work Phone: 06-30-2021 00:00-0500 0 1 Chester E Ball Work Phone: [facility] 250 DO Work Phone: Comment on above: [id number] 06-06-2021 15:33-0400 Body height 152.4 cm Chester E Ball Work Phone: [facility] 250 DO Work Phone: 06-06-2021 15:33-0400 Body mass index (BMI) [Ratio] 28.12 kg/m2 Chester E Ball Work Phone: [facility] 250 DO Work Phone: 06-06-2021 15:33-0400 Body surface area Derived from formula 1.62 m2 Chester E Ball Work Phone: [facility] 250 DO Work Phone: 06-06-2021 15:33-0400 Body weight 65.32 kg Chester E Ball Work Phone: [facility] 250 DO Work Phone: 06-06-2021 15:33-0400 Diastolic blood pressure 64 mm[Hg] Chester Hahn Ball Work Phone: [facility] 250 DO Work Phone: 06-06-2021 15:33-0400 Heart rate 110 /min Chester E Ball Work Phone: [facility] 250 DO Work Phone: 06-06-2021 15:33-0400 Systolic blood pressure 88 mm[Hg] Chester E Ball Work Phone: [facility] 250 DO Work Phone: Encounters Encounter Date Encounter Type Care Provider Facility Start: 11-28-2023 End: 11-28-[address] [facility] Ambulatory Start: 11-27-2023 End: 11-27-2023 ambulatory DO Chester Ball Work Phone: [facility] Work Phone: Start: 11-27-2023 End: 11-27-2023 Patient encounter procedure DO Chester Ball Work Phone: [facility] Work Phone: Start: 11-22-2023 End: 11-22-2023 ambulatory Christopher Richardson Facility:[facility] Start: 11-22-2023 End: 11-22-2023 ambulatory DO Chester Ball Work Phone: [facility] Work Phone: Start: 11-22-2023 End: 11-22-2023 Patient encounter procedure DO Chester Ball Work Phone: [facility]-Pacemaker Check Start: 11-21-2023 End: 11-21-2023 ambulatory Chester Ball Facility:[facility] Start: 11-21-2023 End: 11-21-2023 ambulatory DO Chester Ball Work Phone: [facility] Work Phone: Start: 11-21-2023 End: 11-21-2023 Patient encounter procedure DO Chester Ball Work Phone: [facility] [place] Work Phone: Start: 10-15-2023 End: 10-16-2023 ambulatory Yesica Astudillo MD Facility:[facility] Start: 09-24-2023 End: 09-24-2023 ambulatory Debbie Mac Facility:[facility] Start: 09-24-2023 End: 09-24-2023 ambulatory DO Chester Ball Work Phone: [facility] Work Phone: Start: 09-24-2023 End: 09-24-2023 Patient encounter procedure DO Chester Ball Work Phone: [facility]-Pacemaker Check Start: 09-19-2023 End: 09-19-[address] [facility] Ambulatory Start: 09-19-2023 End: 09-19-2023 Office outpatient visit 25 minutes Debbie Mac MD Work Phone: [facility] Comment on above: Persistent atrial fi brillation (CMS/HCC) (Primary Dx); 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); Chronic diastolic heart failure (CMS/HCC); Essential hypertension, benign; Mixed hyperlipidemia; Pacemaker; Sinus bradycardia; Single vessel coronary artery disease Start: 2023 End: 2023 ambulatory Moollief Jagrutii Facility:[facility] Start: 2023 End: 2023 ambulatory DO Chester Ball Work Phone: [facility] Work Phone: Start: 2023 End: 2023 Patient encounter procedure DO Chester Ball Work Phone: [facility]-Pacemaker Check Start: 08-24-2023 End: 08-24-2023 ambulatory Chester Ball Other [employer] Other Start: 08-24-2023 Telephone encounter Chester العلي G [facility] Start: 08-21-2023 End: 08-22-2023 ambulatory [facility] Start: 08-21-2023 End: 08-21-2023 Subsequent hospital visit by physician Chanell Bartlett Echo/Vasc Room 2 [facility] Comment on above: Chronic diastolic he art failure (CMS/HCC); Essential hypertension, benign; Dyspnea, unspecified type Start: 08-19-2023 End: 08-19-2023 ambulatory Sabina Garcia Other [employer] Other Start: 08-19-2023 Patient encounter procedure Sabina Garcia [facility] Start: 08-19-2023 End: 08-19-2023 Patient encounter procedure DO Chester العلي Work Phone: [facility] Work Phone: Start: 07-25-2023 End: 07-25-2023 Patient encounter procedure DO Chester العلي Work Phone: [facility] Work Phone: Start: 06-29-2023 End: 06-29-2023 ambulatory Chester العلي Other [employer] Other Start: 06-29-2023 Nursing evaluation o f patient and report Chester العلي [facility] Start: 06-15-2023 End: 06-15-2023 [facility]ulatory [facility] Facility:[facility] Start: 05-31-2023 End: 05-31-[address] 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); Chronic diastolic heart failure ([facility]); Essential hypertension, benign; Hyperlipidemia, unspecified hyperlipidemia type; Pacemaker; Sinus bradycardia; Anticoagulated; Class 1 obesity due to excess calories without serious comorbidity with body mass index (BMI) of 32.0 to 32.9 in adult; Stage 3a chronic kidney disease ([facility]); Dyspnea, unspecified type Start: 05-25-2023 End: 05-25-2023 ambulatory Chester العلي Other [employer] Other Start: 05-25-2023 Telephone encounter Chester SIMMONS [facility] Start: 04-20-2023 Rx Renewal Chester Hahn João l Work Phone: [facility] [employer] DO Work Phone: Start: 04-18-2023 Rx Renewal Chester Hahn Bal l Work Phone: [facility] [place] 250 DO Work Phone: Start: 04-12-2023 End: 04-12-2023 ambulatory Chester العلي Other [employer] Other Start: 04-12-2023 Telephone encounter [facility]ي [facility] Start: 04-10-2023 End: 04-10-2023 ambulatory Chester العلي Other [employer] Other Start: 04-10-2023 Telephone encounter Chester [facility]لي [facility] Start: 03-21-2023 End: 03-21-2023 ambulatory Chester العلي Other [employer] Other Start: 03-21-2023 Patient encounter procedure Chester [facility]علي [facility] Start: 03-13-2023 End: 03-13-2023 ambulatory Chester العلي Other [employer] Other Start: 03-13-2023 Telephone encounter Chester [facility] Start: 03-05-2023 Telephone encounter [facility] Start: 03-05-2023 End: 03-05-2023 Admission to same day surgery center DO Chester العلي Work Phone: [facility] [place] Start: 03-05-2023 End: 03-05-[address] Chester لاعلي [facility] Work Phone: Start: 02-26-2023 End: 02-26-2023 ambulatory Wilbur Watson Facility:[facility] Start: 02-26-2023 End: 02-26-2023 ambulatory DO Chester العلي Work Phone: [facility] Work Phone: Start: 02-26-2023 End: 02-26-2023 Patient encounter procedure DO Chester العلي Work Phone: [facility]-Pre-Surgical Testing Work Phone: Start: 02-26-2023 Rx Renewal Chester rosen Work Phone: [facility] 250 DO Work Phone: Start: 01-25-[address] Chester العلي Facility: Start: 01-25-2023 Office outpatient vi sit 25 minutes Chester العلي Work Phone: [facility] Work Phone: Start: 01-09-[address] Chester العلي Facility:[id number] Start: 01-09-2023 End: 01-09-2023 ambulatory Debbie Mac Facility:[facility] Start: 01-09-2023 End: 01-09-2023 Admission to same day surgery center DO Chester العلي Work Phone: [facility]-Business Operations Specialist Work Phone: Start: 01-04-[address] Debbie Mac Facility: Start: 01-03-2023 End: 01-04-[address] CHESTER العلي Facility:H1 Start: 01-03-[address] Debbie Mac Facility: Start: 01-02-2023 End: 01-03-[address] CHESTER العلي Facility:H1 Start: 12-25-2022 Office outpatient ne w 45 minutes Chester العلي Work Phone: [facility] Work Phone: Start: 12-25-[address] Chester العلي Facility:[id number] Start: 12-11-2022 End: 12-11-2022 ambulatory Debbie Pandatellykrysten Facility:[facility] Start: 12-11-2022 End: 12-11-2022 ambulatory DO Chester العلي Work Phone: [facility] Work Phone: Start: 12-11-2022 End: 12-11-2022 Patient encounter procedure DO Chester العلي Work Phone: [facility]-Pacemaker Check Start: 12-11-[address] Chester العلي Facility:[id number] Start: 11-27-2022 Telephone encounter [facility]ي [facility] Start: 11-27-2022 End: 11-27-2022 Admission to same day surgery center DO Chester العلي Work Phone: [facility]gery [facility] [place] Start: 11-27-2022 End: 11-27-2022 ambulatory DO Chester العلي Work Phone: [facility] [employer] Other Start: 11-20-2022 End: 11-20-2022 ambulatory DO Chester العلي Work Phone: [facility] Work Phone: Start: 11-20-2022 End: 11-20-2022 Patient encounter procedure DO Chester العلي Work Phone: [facility] Testing Work Phone: Start: 10-30-2022 Telephone encounter Chester [facility]علي [facility] Start: 10-30-2022 End: 10-30-2022 ambulatory DO Chester العلي Work Phone: [facility] Work Phone: Start: 10-30-2022 End: 10-30-2022 Patient encounter procedure DO Chester العلي Work Phone: [facility]-CT [address] Work Phone: Start: 10-24-2022 End: 10-24-2022 ambulatory Rachel Larios Other [facility] [employer] Other Start: 10-24-2022 Office outpatient vi sit 15 minutes Rachel CRUZ [facility] Start: 10-16-2022 End: 10-17-[address] CHESTER العلي Facility:H1 Start: 10-13-2022 Office outpatient vi sit 25 minutes Chester العلي Work Phone: [facility] 250 DO Work Phone: Start: 10-13-[address] Debbie Mac Facility: Start: 10-10-2022 End: 10-10-2022 ambulatory Chester العلي Other [employer] Other Start: 10-10-2022 Telephone encounter Chester SIMMONS [facility] Start: 09-27-2022 Patient encounter procedure Chester العلي Work Phone: [facility] 250 DO Work Phone: Start: 09-27-[address] Debbie Mac Facility: Start: 09-24-2022 End: 09-24-2022 ambulatory Chester العلي Other [employer] Other Start: 09-24-2022 Telephone encounter Chester SIMMONS [facility] Start: 09-21-[address] Chester العلي Facility:[id number] Start: 09-20-[address] Chester العلي Facility:[id number] Start: 09-19-[address] Chester العلي Facility:[id number] Start: 09-18-[address] Chester العلي Facility:[id number] Start: 09-17-2022 End: 09-21-2022 Evaluation and management of inpatient DO Chester العلي Work Phone: [facility] [employer] Work Phone: Start: 09-12-2022 End: 09-12-2022 ambulatory Chester العلي Other [facility] [employer] Other Start: 09-12-2022 Office outpatient vi sit 25 minutes Chester Tyson [facility] Start: 09-11-2022 End: 09-11-2022 ambulatory DO Chester العلي Work Phone: [facility] Work Phone: Start: 09-11-2022 End: 09-11-2022 Patient encounter procedure DO Chester العلي Work Phone: [facility]-Pacemaker Check Start: 09-08-2022 End: 09-08-2022 ambulatory Chester العلي Other [facility] [employer] Other Start: 09-08-2022 Telephone encounter Chester العلي IR[facility] Start: 09-06-[address] Jimena Smith Facility:[id number] Start: 09-05-[address] Jimena Smith Facility:[id number] Start: 09-04-[address] Jimena Smith Facility:[id number] Start: 09-03-[address] Jimena Smith Facility:[id number] Start: 09-02-[address] Chester العلي Facility:[id number] Start: 09-01-2022 End: 09-06-2022 Evaluation and management of inpatient DO Chester العلي Work Phone: [facility] [place] [employer] Work Phone: Start: 08-25-2022 Telephone encounter Chester العلي Work Phone: [facility] 250 DO Work Phone: Start: 08-24-[address] Debbie Mac Facility: Start: 08-24-2022 Patient encounter procedure Chester العلي Work Phone: [facility] 250 DO Work Phone: Start: 06-26-2022 Office outpatient vi sit 25 minutes Chester العلي Work Phone: [facility] 250 DO Work Phone: Start: 06-26-[address] Debbie Mac Facility: Start: 06-09-2022 End: 06-09-2022 ambulatory DO Chester العلي Work Phone: [facility] Work Phone: Start: 06-09-2022 End: 06-09-2022 Patient encounter procedure DO Chester العلي Work Phone: [facility]-Pacemaker Check Start: 06-09-[address] Chester العلي Facility:[id number] Start: 05-12-2022 End: 05-13-[address] CHESTER العلي Facility:H1 Start: 05-01-2022 Adult health examination Chester العلي Other [facility] [employer] Other Start: 04-27-2022 End: 04-27-2022 ambulatory John Mims Other [employer] Other Start: 04-27-2022 Office outpatient vi sit 25 minutes John Mims [facility] Start: 04-20-2022 End: 04-20-[address] RACHEL LARIOS Facility:H1 Start: 03-27-2022 Rx Renewal Chester rosen Work Phone: [facility] 250 DO Work Phone: Start: 03-16-2022 End: 03-16-2022 ambulatory John Mims Other [employer] Other Start: 03-16-2022 Telephone encounter John feliciano [facility] Start: 03-10-2022 Office outpatient vi sit 25 minutes Chester العلي Work Phone: [facility] 250 DO Work Phone: Start: 03-10-[address] Chester العلي Facility: Start: 03-09-2022 End: 03-09-2022 Patient encounter procedure DO Chester Ball [facility] Start: 03-09-2022 End: 03-09-2022 Patient encounter procedure DO Chester Ball Work Phone: [facility]-Pacemaker Check Start: 02-28-2022 End: 02-28-2022 ambulatory John Mims Other [facility] [employer] Other Start: 02-28-2022 Office outpatient vi sit 25 minutes John Mims [facility] Start: 02-16-2022 End: 02-16-2022 Patient encounter procedure DO Chester Tyson Work Phone: [facility] Start: 01-25-2022 End: 01-26-[address] Wolf MIMS Facility:H1 Start: 01-19-2022 End: 01-19-2022 Patient encounter procedure DO Chester Ball [facility] Start: 01-11-2022 End: 01-12-[address] CHESTER العلي Facility:H1 Start: 01-03-2022 End: 01-03-2022 Patient encounter procedure DO Chester Ball [facility] Start: 12-30-2021 End: 12-30-2021 Patient encounter procedure DO Chester Ball Work Phone: [facility]-Pre-Surgical Testing Start: 11-21-2021 End: 11-21-2021 Patient encounter procedure DO Chester Ball Work Phone: [facility]-Pacemaker Check Start: 10-19-2021 Office outpatient vi sit 25 minutes Chester العلي Work Phone: [facility] 250 DO Work Phone: Start: 08-15-2021 Patient encounter procedure Chester العلي Work Phone: [facility] 250 DO Work Phone: Start: 07-26-2021 Rx Renewal Chester rosen Work Phone: [facility] 250 DO Work Phone: Start: 07-06-2021 Postop follow up vis it related to original px Chester العلي Work Phone: [facility] 250 DO Work Phone: Start: 06-28-2021 Chart Update Chester rosen Work Phone: [facility] 250[place] Work Phone: Start: 06-26-2021 Chart Update Chester rosen Work Phone: [facility] 250[place] Work Phone: Start: 06-24-2021 Chart Update Chester rosen Work Phone: [facility] 250[place] Work Phone: Start: 06-24-2021 Chart Update Chester rosen Work Phone: [facility] 250[place] Work Phone: Start: 06-23-2021 Chart Update Chester rosen Work Phone: [facility] 250[place] Work Phone: Start: 06-23-2021 [facility] Provider: Debbie Mac, Status: Pen, Time: 10:00 AM Chester العلي Work Phone: [facility] 250[place] Work Phone: Start: 06-22-2021 Chart Update Chester rosen Work Phone: [facility] 250[place] Work Phone: Start: 06-13-2021 Telephone encounter Chester العلي Work Phone: [facility] [place] 250[place] Work Phone: Start: 06-06-2021 Patient encounter procedure Chester العلي Work Phone: [facility] Danette Marie DO Work Phone: Start: 05-25-2021 Telephone encounter Debbie marina MD Work Phone: [facility] Danette Marie DO Work Phone: Start: 07-26-2020 End: 07-31-2020 Evaluation and management of inpatient CHESTER العلي Facility:[facility] Procedures Date Procedure Procedure Detail Performing Clinician Start: 11-28-2023 ECG 12-LEAD DEBBIE MARINA Start: 11-28-2023 FOLLOW UP IN CARDIOLOGY DEBBIE MAC Start: 11-21-2023 MR lumbar spine wo con DO Chester العلي Work Phone: Start: 09-19-2023 ECG 12-LEAD DEBBIE MARINA Start: 09-19-2023 FOLLOW UP IN CARDIOLOGY DEBBIE [facility] Start: 09-19-2023 Ecg routine ecg w/le ast 12 lds w/i&r Debbie Mac MD Work Phone: Start: 08-21-2023 TRANSTHORACIC ECHO ( TTE) COMPLETE DEBBIE MAC Start: 08-21-2023 Echo tthrc r-t 2d w/ wom-mode compl spec&colr d Debbie Mac MD Work Phone: Start: 05-31-2023 ECG 12-LEAD DEBBIE MARINA Start: 05-31-2023 Ecg routine ecg w/le ast 12 lds w/i&r Debbie Mac MD Work Phone: Start: 03-05-2023 Laparoscopic cholecystectomy DO Chester العلي Work Phone: Start: 01-09-2023 CL [facility] & COR Angio DO B enjamin Ball Work Phone: Start: 01-09-2023 DO Benjami n Ball Work Phone: Start: 10-30-2022 CT of chest without contrast DO Chester Ball Work Phone: Start: 09-21-2022 Plain chest X-ray DO Be njamin Ball Work Phone: Start: 09-20-2022 Plain chest X-ray DO Be njamin Ball Work Phone: Start: 09-18-2022 Doppler ultrasonogra phy of bilateral carotid arteries DO Chester Ball Work Phone: Start: 09-17-2022 Urine culture DO Benjam in Ball Work Phone: Start: 09-17-2022 Plain chest X-ray DO Be njamin Ball Work Phone: Start: 09-02-2022 CT of chest without contrast DO Chester Ball Work Phone: Start: 09-01-2022 CT of head without contrast DO Chester Ball Work Phone: Start: 09-01-2022 Urine culture DO Benjam in Ball Work Phone: Start: 09-01-2022 Plain chest X-ray DO Be njamin Ball Work Phone: Start: 03-09-2022 DH Fibroscan DO Benjami n Ball Work Phone: Start: 01-03-2022 Esophageal manometry DO Chester Ball Work Phone: Start: 07-30-2020 MEASUREMENT OF CARDI AC TOTAL ACTIVITY, EXTERNAL APPROACH TANNER HERRERA Start: 07-28-2020 INTRODUCTION OF OTHE R GAS INTO RESP TRACT, VIA OPENING JELANI WOO Start: 07-28-2020 Yazidi of Cardi ac Rhythm, Single SANJUANA CARRERO Start: 07-28-2020 ULTRASONOGRAPHY OF R IGHT AND LEFT HEART, TRANSESOPHAGEAL SANJUANA CARRERO Start: 06-20-2017 Screening for osteoporosis [employer] Other Start: 09-13-2016 General examination of patient Chester العلي Other Start: 05-21-2015 Screening mammography B enjagin العلي Other Appendectomy Chester العلي Work Phone: Depression screening Arlette العلي Other Hernia repair Chester rosen Work Phone: Hysterectomy Chester العلي Work Phone: Insertion of pacemak er pulse generator Chester العلي Work Phone: Operative procedure on foot Chester العلي Work Phone: Plan of Treatment Date Care Activity Detail Author Start: 07-11-2031 DTaP/Tdap/Td Vaccines (2 - Td or Tdap) DTaP/Tdap/Td Vaccines (2 - Td or Tdap) [facility] Start: 07-11-2031 DTaP/Tdap/Td Vaccines (3 - Td or Tdap) DTaP/Tdap/Td Vaccines (3 - Td or Tdap) [facility] Start: 08-21-2024 Echocardiography Echocardiogram [facility] Start: 11-28-2023 End: 11-28-2023 Patient encounter procedure 11/28/2023 3:10 PM EDT Office Visit [address] [id number] Debbie Mac MD [address] [facility] 2, [address] [place] [address] [facility] Start: 09-19-2023 End: 09-19-2023 Patient encounter procedure 09/19/2023 1:00 PM EST Office Visit [address] [place] [address] Debbie Mac MD [address] [facility] 2, [address] [place] [address] [facility] Start: 09-02-2023 Echocardiography Echocardiogram [facility] Start: 07-05-2023 End: 07-05-2023 Patient encounter procedure 07/05/2023 1:30 PM EST Appointment [facility] [address] [place] [address] [facility] Start: 05-31-2023 FUV, Provider: Debbie Mac, Status: Pen, Time: 3:00 PM FUV, Provider: Debbie Mac, Status: Pen, Time: 3:00 PM [facility] Work Phone: Start: 05-31-2023 End: 05-31-2025 US Heart Transthoracic Transthoracic Echo (TTE) Complete Echocardiography Routine Chronic diastolic heart failure (CMS/HCC) Essential hypertension, benign Dyspnea, unspecified type Expected: 05/31/2023 (Approximate), Expires: 05/31/2025 [facility] Service Area Work Phone: Comment on above: Expected: 05/31/2023 (Approximate), Expi res: 05/31/2025 Start: 05-09-2023 FUV, Provider: Maxwell Stafford, Status: Pen, Time: 4:00 PM FUV, Provider: Maxwell Stafford, Status: Pen, Time: 4:00 PM [facility] 250 DO Work Phone: Start: 04-20-2023 COVID-19 Vaccine ( season) COVID-19 Vaccine ( season) [facility] Start: 04-20-2023 Influenza vaccination Influenza Vaccine (#1) [facility] Start: 04-04-2023 FUV, Provider: Maxwell Stafford, Status: Pen, Time: 3:00 PM FUV, Provider: Maxwell Stafford, Status: Pen, Time: 3:00 PM [facility] 250 DO Work Phone: Start: 03-05-2023 [facility] Start: 03-05-2023 [facility] Start: 02-14-2023 FUV, Provider: Maxwell Stafford, Status: Pen, Time: 1:30 PM FUV, Provider: Maxwell Stafford, Status: Pen, Time: 1:30 PM [facility] Work Phone: Start: 01-09-2023 [facility] Start: 01-04-2023 FUV, Provider: Debbie Mac, Status: Pen, Time: 1:50 PM FUV, Provider: Debbie Mac, Status: Pen, Time: 1:50 PM [facility] 250 DO Work Phone: Start: 11-27-2022 Laparoscopic cholecystectomy OR Cholecystectomy Laparoscopic (Not Applicable) [facility] Start: 11-27-2022 End: 11-27-2022 [facility] Start: 10-13-2022 FUV, Provider: Debbie Mac, Status: Pen, Time: 10:30 AM FUV, Provider: Debbie Mac, Status: Pen, Time: 10:30 AM [facility] 250 DO Work Phone: Start: 09-21-2022 [facility] Start: 09-17-2022 Hospital admission [facility] Start: 09-17-2022 Referral to window caser [facility] Start: 09-17-2022 Bacteria identified in Urine by Culture [facility] Start: 09-06-2022 [facility] Start: 09-05-2022 Blood chemistry [facility] Start: 09-05-2022 [facility] Start: 09-04-2022 Administration of prophylactic treatment [facility] Start: 09-04-2022 Blood chemistry [facility] Start: 09-04-2022 [facility] Start: 09-03-2022 [facility] chemistry [facility] Start: 09-03-2022 [facility] Start: 09-02-2022 Blood chemistry [facility] Start: 09-02-2022 Brain natriuretic peptide measurement [facility] Start: 09-02-2022 Magnesium measurement [facility] Start: 09-02-2022 [facility] Start: 09-01-2022 Referral to window caser [facility] Start: 09-01-2022 Hospital admission [facility] Start: 09-01-2022 [facility] Start: 09-01-2022 Bacteria identified in Urine by Culture Urine Culture [facility] Start: 07-12-2022 FUV, Provider: Debbie Mac, Status: Pen, Time: 2:40 PM FUV, Provider: Debbie Mac, Status: Pen, Time: 2:40 PM -[facility] 250 DO Work Phone: Start: 03-09-2022 [facility] Work Phone: Start: 02-22-2022 FUV, Provider: Debbie Mac, Status: Pen, Time: 2:50 PM FUV, Provider: Debbie Mac, Status: Pen, Time: 2:50 PM -[facility] 250 DO Work Phone: Start: 01-08-2022 COVID-19 Vaccine (3 - Pfizer series) COVID-19 Vaccine (3 - Pfizer series) [facility] Start: 01-03-2022 [facility] Work Phone: Start: 10-19-2021 FUV, Provider: Debbie Mac, Status: Pen, Time: 3:30 PM FUV, Provider: Debbie Mac, Status: Pen, Time: 3:30 PM -[facility] 250 DO Work Phone: Start: 09-12-2021 FUV, Provider: Debbie Mac, Status: Pen, Time: 2:50 PM FUV, Provider: Debbie Mac, Status: Pen, Time: 2:50 PM -[facility] 250 DO Work Phone: Start: 07-26-2021 FUV, Provider: Debbie Mac, Status: Pen, Time: 2:00 PM [facility] 250 DO Work Phone: Start: 06-23-2021 [facility], Provider: Debbie Mac, Status: Pen, Time: 10:00 AM [facility], Provider: Debbie Mac, Status: Pen, Time: 10:00 AM [facility] 250[address] [place] Work Phone: Start: 11-08-2019 Pneumococcal Vaccine: 65+ Years (2 - PCV) Pneumococcal Vaccine: 65+ Years (2 - PCV) [facility] Start: 10-31-2012 Zoster Vaccines (2 of 3) Zoster Vaccines (2 of 3) [facility] Start: 2002 Hepatitis B Vaccines (1 of 3 - Risk 3-dose series) Hepatitis B Vaccines (1 of 3 - Risk 3-dose series) [facility] Start: 1961 Hepatitis A Vaccines (1 of 2 - Risk 2-dose series) Hepatitis A Vaccines (1 of 2 - Risk 2-dose series) [facility] Start: 1960 Diabetes mellitus screening Diabetes Screening [facility] Start: 1942 Creatinine measurement Creatinine Level [facility] Start: 1942 Lipid panel Lipid Panel [facility] Start: 1942 Medicare Annual Wellness Visit Medicare Annual Wellness Visit (AWV) [facility] Start: 1942 Potassium measurement Potassium Level [facility] Start: 1942 Screening for osteoporosis Bone Density Scan [facility] Hepatitis A virus antibody, IgM type [facility] Work Phone: Hepatitis B core ant ibody measurement, IgM type [facility] Work Phone: Hepatitis B virus vieira rface Ag [Presence] in Serum or Plasma by Immunoassay [facility] Work Phone: Hepatitis C virus Ab Signal/Cutoff in Serum or Plasma by Immunoassay [facility] Work Phone: Hepatitis C virus RN A [log units/volume] (viral load) in Serum or Plasma by GUILLERMO with probe detection [facility] Work Phone: Hepatitis C virus RN A [Units/volume] (viral load) in Serum or Plasma by GUILLERMO with probe detection [facility] Work Phone: Homogenous nuclear A b pattern [Titer] in Serum [facility] Work Phone: Nuclear Ab [Titer] i n Serum [facility] Work Phone: Patient Education [facility] Work Phone: Patient referral [facility] Work Phone: End: 08-21-2023 [facility] Service Area Work Phone: Comment on above: Once for 1 Occurrences starting 08/21/19 24 until 08/21/2023 Immunizations Immunization Date Immunization Notes Care Provider Rola priest 06-29-2023 influenza, high dose seasonal, preservative-free Chester العلي Other [facility] Other 06-29-2023 influenza virus vaccine, unspecified formulation DO Chester العلي Work Phone: [facility] 05-26-2022 Fluad Quadrivalent 0 .5 ML Intramuscular Prefilled Syringe Chester العلي Work Phone: [facility] 250 DO Work Phone: 05-26-2022 influenza virus vaccine, split virus (incl. purified surface antigen) Chester العلي Other [facility] Other 05-26-2022 influenza virus vaccine, unspecified formulation Debbie Mac MD Work Phone: [facility] 11-13-2021 Comirnaty 30 MCG/0.3 ML Intramuscular Suspension Chester [facility]علي [facility] Work Phone: 11-13-2021 COVID-19 mRNA, Comirnaty (Pfizer) DO Chester العلي Work Phone: [facility] 07-11-2021 tetanus toxoid, redu maranda diphtheria toxoid, and acellular pertussis vaccine, adsorbed Chester العلي Work Phone: [facility] 06-14-2021 influenza virus vaccine, split virus (incl. purified surface antigen) Chester العلي Other [facility] Other 06-14-2021 influenza virus vaccine, unspecified formulation DO Chester العلي Work Phone: [facility] 10-07-2020 Pfizer-BioNTech COVID-19 Vacc 30 MCG/0.3ML Intramuscular Suspension Chester العلي Work Phone: [facility] Comment on above: Series: 09-17-2020 COVID-19 Vaccine Moderna - Documentation Purposes Only Chester العلي Other [facility] 09-17-2020 Pfizer-BioNTech COVID-19 Vacc 30 MCG/0.3ML Intramuscular Suspension Chester العلي Work Phone: [facility] Comment on above: Series: 05-20-2020 influenza, seasonal, injectable Chester العلي [facility] Work Phone: Comment on above: Series: 05-05-2020 Flu Vaccine - Adult DO George العلي Work Phone: [facility] 05-05-2020 influenza virus vaccine, split virus (incl. purified surface antigen) Chester العلي Other [facility] Other 05-05-2020 influenza virus vaccine, unspecified formulation DO Chester العلي Work Phone: [facility] 05-05-2020 influenza, seasonal, injectable Chester العلي Work Phone: [facility] 05-20-2019 influenza, high dose seasonal, preservative-free Chester العلي Work Phone: [facility] 250 DO Work Phone: 11-07-2018 pneumococcal polysaccharide vaccine, 23 valent Chester العلي Work Phone: [facility] [employer] DO Work Phone: 06-12-2018 influenza virus vaccine, split virus (incl. purified surface antigen) Chester العلي Other [facility] Other 06-12-2018 influenza virus vaccine, unspecified formulation DO Chester العلي Work Phone: [facility] 06-12-2018 Seasonal trivalent influenza vaccine, adjuvanted, preservative free Chester العلي Work Phone: [facility] [employer] DO Work Phone: 05-20-2018 influenza, injectabl e, quadrivalent, preservative free Chester العلي Work Phone: [facility] DO Work Phone: 06-21-2017 diphtheria, tetanus toxoids and acellular pertussis vaccine, unspecified formulation Chester العلي Other [facility] 07-06-2016 pneumococcal conjuga te vaccine, 13 valent Chester العلي Other [facility] 07-06-2016 pneumococcal Conjuga te, unspecified formulation; Translations: [Need for prophylactic vaccination against Streptococcus pneumoniae (pneumococcus)] Chester العلي Other [facility] [employer] Other 03-20-2015 pneumococcal polysaccharide vaccine, 23 valent Chester Hahn Capptain Work Phone: [facility] [employer] DO Work Phone: Comment on above: Series: 03-20-2014 influenza virus vaccine, unspecified formulation Chester العلي Work Phone: [facility] [employer] DO Work Phone: 06-24-2013 tetanus and diphther ia toxoids, adsorbed, preservative free, for adult use (5 Lf of tetanus toxoid and 2 Lf of diphtheria toxoid) Chester العلي Other [facility] 09-05-2012 zoster vaccine, live Benjvelia n E Tyson Work Phone: -[facility] 250 DO Work Phone: 07-29-2008 pneumococcal polysaccharide vaccine, 23 valent Chester العلي Other [facility] Payers Date Payer Category Payer Medicare [id number] 2022 Unknown 2022 Self-pay [id number] 2020 Medicare [id number] 2009 Unknown [id number] 1959 Private Health Insurance [id number] 1942 Unknown [id number] 2.16.8 40.1.030765.3.579.2.647 1942 Unknown [id number] 2.16. 840.1.677531.3.579.2.356 1942 Unknown [id number] 2.16.84 0.1.388797.3.579.2.593 1942 Unknown [id number] 2.16.84 0.1.385181.3.579.2.593 1942 Unknown [id number] 2.16.84 0.1.473045.3.579.2.593 1942 Unknown [id number] 2.16.84 0.1.271532.3.579.2.593 1942 Unknown [id number] 2.16.84 0.1.250749.3.579.2.593 1942 Unknown [id number] 2.16.84 0.1.167328.3.579.2.593 1942 Unknown [id number] 2.16.84 0.1.325952.3.579.2.593 1942 Unknown [id number] 2.16. 840.1.545792.3.579.2.356 1942 Unknown [id number] 2.16. 840.1.579677.3.579.2.356 1942 Unknown [id number] 2.16. 840.1.035338.3.579.2.356 1942 Unknown [id number] 2.16. 840.1.363336.3.579.2.356 1942 Unknown [id number] 2.16. 840.1.423803.3.579.2.356 1942 Unknown [id number] 2.16. 840.1.633641.3.579.2.356 1942 Unknown [id number] 2.16. 840.1.494992.3.579.2.356 1942 Unknown [id number] 2.16. 840.1.397297.3.579.2.356 1942 Unknown [id number] 2.16. 840.1.573182.3.579.2.356 1942 Unknown [id number] 2.16. 840.1.535994.3.579.2.356 1942 Unknown [id number] 2.16. 840.1.939812.3.579.2.356 1942 Unknown [id number] 2.16. 840.1.649496.3.579.2.356 1942 Unknown [id number] 2.16. 840.1.131842.3.579.2.356 1942 Unknown [id number] 2.16. 840.1.499915.3.579.2.356 1942 Unknown [id number] 2.16. 840.1.817588.3.579.2.356 1942 Unknown [id number] 2.16. 840.1.475081.3.579.2.356 1942 Unknown [id number] 2.16. 840.1.060962.3.579.2.356 1942 Unknown [id number] 2.16. 840.1.119954.3.579.2.356 1942 Unknown [id number] 2.16. 840.1.904254.3.579.2.356 1942 Unknown [id number] 2.16. 840.1.651830.3.579.2.356 1942 Unknown [id number] 2.16. 840.1.862538.3.579.2.356 1942 Unknown [id number] 2.16. 840.1.944553.3.579.2.356 1942 Unknown [id number] 2.16. 840.1.586826.3.579.2.356 1942 Unknown [id number] 2.16. 840.1.457108.3.579.2.356 1942 Unknown [id number] 2.16. 840.1.586116.3.579.2.356 1942 Unknown [id number] 2.16.84 0.1.287424.3.579.2.1246 1942 Unknown [id number] 2.16. 840.1.549338.3.579.2.196 1942 Unknown [id number] 2.16.8 40.1.255142.3.579.2.1244 1942 Unknown [id number] 2.16.8 40.1.732673.3.579.2.1244 1942 Unknown [id number] 2.16.8 40.1.785333.3.579.2.1244 Medicare [id number] Medicare Medicare [id number] Private Health Insurance [id number] Unknown [id number] 2.16.8 40.1.141119.3.579.2.531 Unknown [id number] 2.16.8 40.1.537029.3.579.2.531 Unknown [id number] 2.16.8 40.1.098950.3.579.2.531 Unknown [id number] 2.16.8 40.1.528716.3.579.2.531 Unknown [id number] 2.16.8 40.1.418442.3.579.2.531 Unknown [id number] 2.16.8 40.1.289649.3.579.2.531 Unknown [id number] 2.16.8 40.1.793662.3.579.2.531 Unknown [id number] 2.16.8 40.1.407296.3.579.2.531 Unknown [id number] 2.16.8 40.1.097629.3.579.2.531 Social History Date Type Detail Facility Start: 05-31-2023 No alcohol use No alcohol use -[facility] 250 DO Work Phone: Start: 08-22-2021 End: 07-25-2023 Tobacco smoking status NHIS Never smoked tobacco (finding) [facility] Start: 1940 Sex Assigned At Female F [facility] Start: 05-31-2023 Sex Assigned At N [facility] Other Start: 05-31-2023 Tobacco use and exposure Smokeless tobacco non-user [facility] Work Phone: Start: 05-31-2023 End: 09-19-2023 Alcohol intake Lifetime non-drinker (finding) [facility] Work Phone: Start: 1940 Sex Assigned At Not on file U [facility] Work Phone: Start: 05-21-2023 End: 09-19-2023 Exposure to SARS-CoV-2 (event) Not sure [facility] Medical Equipment Procedure Code Equipment Code Equipment Origin al Text Equipment Identifier Dates Insertion, pacemaker Endocardial pacing lead [id number] FDA Start: 06-29-2021 Insertion, pacemaker Endocardial pacing lead [id number] FDA Start: 06-29-2021 Insertion, pacemaker Dual-chambe r implantable pacemaker, rate-responsive ()[id number] FDA Start: 06-29-2021 Cystoscopy, with ureteral calculus manipulation and stent placement Polymeric ureteral stent [id number] FDA Start: 07-01-2021 Goals Date Patient Goal Desired Activity /State Functional Status Date Assessment Result Facility 09-21-2022 Functional status Patient at Baseline [facility] Work Phone: 09-06-2022 Functional status Patient at Baseline [facility] Work Phone: 09-02-2022 Functional status Bathing Patient at Base line [facility] Work Phone: Mental Status Date Assessment Result Facility 09-21-2022 Cognitive function Cognitive Sta tus Patient at Baseline [facility] Work Phone: 09-06-2022 Cognitive function Cognitive Sta tus Patient at Baseline [facility] Work Phone: Clinical Notes 06-21-2021 to 09-19-2023 Debbie Mac MD - 09/19/2023 1:00 PM ESTPatient InstructionsMobetsey Mac MD - 05/31/2023 3:00 PM EDTPatient Instructions Note Date & Type Note Facility 09-19-2023 History of Present illness Narrative Blaise Golden is a 83 y.o. female Chief Complaint Follow-up HPI Patient is here for follow-up continue management for persistent atrial fibrillation/flutter, long-term anticoagulation, hypertension and hyperlipidemia. Since last time I saw her she had numerous complaints including diffuse aches and pains. She reports she has been diagnosed with fibromyalgia in the past. She also describes some symptoms of epigastric discomfort and indigestion. She has not been taking any antiacid. She does have history of hiatal hernia. EKG today appears suspicious of atrial flutter. In the past the patient did not tolerate amiodarone and dofetilide was ineffective after the lower dose while on the higher dose caused prolonged QTc interval. She had been seen in the past by Dr. Stafford. She did undergo cardiac catheterization that showed small one-vessel disease affecting diagonal medical therapy was recommended Assessment 1. Persistent atrial fibrillation with clinical picture of tachybradycardia syndrome. She is status post permanent pacemaker implantation recently remain in sinus rhythm. Amiodarone was discontinued because of concern about side effects. Tikosyn was ineffective of lower dose and resulted in prolonged QTc involving higher dose currently on sotalol and appears to be in and out of atrial fibrillation flutter today she looks like in a flutter 2. Long-term anticoagulation with Xarelto which dose due to renal dysfunction 3. History of nephrolithiasis 4. Hypertension controlled 5. Hyperlipidemia with mild weight gain recently 6. Borderline overweight 7. Patient describes diffuse aching pain with previous history of myalgia discussed with patient treatment option 8. Had complaint of recurrent nausea and vomiting she was diagnosed with esophageal stricture with concern liver cirrhosis followed by GI 9. Status post recent cholecystectomy without any cardiac issues 10. Chronic complaint of shortness of breath with previous presentation with volume overload. Symptoms have improved. Recent echo showed normal LV systolic function and minimally elevated pulmonary pressure Plan 1. I including the possibility of ablation considering recurrence of atrial arrhythmia. Will plan on sending her for device check to confirm that she is in atrial flutter and I will see her back in 3-month 2. Risk, benefit and alternative anticoagulation reviewed patient understood and agreed 3. I recommended her to to use Maalox as needed and the Prilosec 20 mg daily to see if her GI symptoms improve 4. Follow-up in 4-month 5. Continue pacemaker follow-up 6. I encouraged her to discuss her fibromyalgia symptomatology 7. I reviewed with her her recent echocardiogram Review of Systems All other systems reviewed and are negative. w of her shortness of breath Review of Systems All other systems reviewed and are negative. Visit Vitals BP (!) 126/92 (BP Location: Left arm, Patient Position: Sitting) Pulse 91 Ht 1.499 m (4' 11 ) Wt 74.6 kg (164 lb 6.4 oz) BMI 33.20 kg/m Smoking Status Never BSA 1.76 m EKG done in office today Objective Physical Exam Constitutional: Appearance: Normal appearance. She is normal weight. HENT: Nose: Nose normal. Neck: Vascular: No carotid bruit. Cardiovascular: Rate and Rhythm: Normal rate. Rhythm irregularly irregular. Pulses: Normal pulses. Heart sounds: Normal heart sounds. Pulmonary: Effort: Pulmonary effort is normal. Abdominal: General: Bowel sounds are normal. Palpations: Abdomen is soft. Genitourinary: Rectum: Normal. Musculoskeletal: General: Normal range of motion. Cervical back: Normal range of motion. Right lower leg: No edema. Left lower leg: No edema. Skin: General: Skin is warm and dry. Neurological: General: No focal deficit present. Mental Status: She is alert. Psychiatric: Mood and Affect: Mood normal. Behavior: Behavior normal. Thought Content: Thought content normal. Judgment: Judgment normal. Current Medications Current Outpatient Medications: acetaminophen (Tylenol) 500 mg tablet, Take 325 mg by mouth. TAKE 1 TABLET EVERY 4 TO 6 HOURS NEEDED., Disp: , Rfl: ascorbic acid-vitamin E-biotin (Hair, Skin, Nails with Biotin) 7.5-7.5-1,250 mg-unit-mcg tablet,chewable, Chew 1 tablet once daily., Disp: , Rfl: atorvastatin (Lipitor) 40 mg tablet, Take 1 tablet (40 mg) by mouth once daily., Disp: , Rfl: dilTIAZem CD (Cardizem CD) 120 mg 24 hr capsule, Take 1 capsule (120 mg) by mouth once daily., Disp: , Rfl: escitalopram (Lexapro) 10 mg tablet, Take 1 tablet (10 mg) by mouth once daily., Disp: , Rfl: HYDROcodone-acetaminophen ([place]) 10-325 mg tablet, Take 1 tablet by mouth once daily as needed., Disp: , Rfl: multivitamin (Daily Multi-Vitamin) tablet, Take 1 tablet by mouth once daily., Disp: , Rfl: rivaroxaban (Xarelto) 15 mg tablet, Take 1 tablet (15 mg) by mouth once daily at bedtime., Disp: , Rfl: rOPINIRole (Requip) 1 mg tablet, Take 1 tablet (1 mg) by mouth once daily at bedtime., Disp: , Rfl: sotalol (Betapace) 80 mg tablet, TAKE 1 TABLET BY MOUTH TWICE A DAY, Disp: 180 tablet, Rfl: 3 Assessment/Plan 1. Persistent atrial fibrillation (CMS/HCC) Follow Up In Cardiology Follow Up In Cardiology ECG 12 Lead 2. 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) Follow Up In Cardiology Follow Up In Cardiology Referral to Pacemaker Clinic and Follow Up 3. Chronic diastolic heart failure (CMS/HCC) Follow Up In Cardiology Follow Up In Cardiology 4. Essential hypertension, benign Follow Up In Cardiology 5. Mixed hyperlipidemia 6. Pacemaker Referral to Pacemaker Clinic and Follow Up 7. Sinus bradycardia Referral to Pacemaker Clinic and Follow Up 8. Single vessel coronary artery disease documented in this encounter [facility] Work Phone: 09-19-2023 Instructions Maggy Vee LPN - 09/19/2023 1:00 PM EST Please bring all medicines, vitamins, and herbal supplements with you when you come to the office. Prescriptions will not be filled unless you are compliant with your follow up appointments or have a follow up appointment scheduled as per instruction of your physician. Refills should be requested at the time of your visit. Follow up 2 months Same medications Prilosec 20 mg daily for 4 weeks, then update regarding symptoms. Can take Maalox also. Pacemaker check documented in this encounter [facility] Work Phone: 05-31-2023 History of Present illness Narrative Blaise Golden is a 82 y.o. female Chief Complaint Follow-up HPI Patient is here for follow-up continue management for persistent atrial fibrillation status post permanent pacemaker implantation. Last time I saw her she was in the process of being evaluated by Dr. Stafford for ablation but because the need for gallbladder surgery this was placed on hold. She underwent her surgery without cardiac issues or complication. Historically the patient did not tolerate amiodarone. Tachycardia seen higher dose resulted in significant QTc prolongation and on lower dose was ineffective. She is currently on sotalol and seem to remain in sinus rhythm. Her only complaint is shortness of breath. Her previous echo showed ejection fraction around 40%. Her previous heart cath showed diagonal disease with normal ejection fraction. Assessment 1. Persistent atrial fibrillation with clinical picture of tachybradycardia syndrome. She is status post permanent pacemaker implantation recently remain in sinus rhythm off amiodarone which we discontinued because of concern about side effects. Tikosyn was ineffective of lower dose and resulted in prolonged QTc involving higher dose currently on sotalol and remained in sinus rhythm 2. Long-term anticoagulation with Xarelto which dose due to renal dysfunction 3. History of nephrolithiasis 4. Hypertension controlled 5. Hyperlipidemia with mild weight gain recently 6. Borderline overweight 7. Patient describes shortness of breath without evidence of volume overload stable 8. Had complaint of recurrent nausea and vomiting she was diagnosed with esophageal stricture with concern liver cirrhosis followed by GI 9. Status post recent cholecystectomy without any cardiac issues Plan 1. I had with the patient the results of her recent laboratory data 2. Risk, benefit and alternative anticoagulation reviewed patient understood and agreed 3. Continue to monitor for arrhythmia. If she had a recurrence we will consider referring her back to Dr. Stafford for an ablation 4. Follow-up in 4-month 5. Continue pacemaker follow-up 6. I continue to encourage the patient to exercise and try to lose some weight. I advised her to restrict her salt intake 7. I would repeat her echocardiogram in view of her shortness of breath Review of Systems Respiratory: Positive for shortness of breath. All other systems reviewed and are negative. Objective Physical Exam Constitutional: Appearance: Normal appearance. She is normal weight. HENT: Nose: Nose normal. Neck: Vascular: No carotid bruit. Cardiovascular: Rate and Rhythm: Normal rate. Pulses: Normal pulses. Heart sounds: Normal heart sounds. Pulmonary: Effort: Pulmonary effort is normal. Abdominal: General: Bowel sounds are normal. Palpations: Abdomen is soft. Genitourinary: Rectum: Normal. Musculoskeletal: General: Normal range of motion. Cervical back: Normal range of motion. Right lower leg: No edema. Left lower leg: No edema. Skin: General: Skin is warm and dry. Neurological: General: No focal deficit present. Mental Status: She is alert. Psychiatric: Mood and Affect: Mood normal. Behavior: Behavior normal. Thought Content: Thought content normal. Judgment: Judgment normal. Current Medications Current Outpatient Medications: acetaminophen (Tylenol) 500 mg tablet, Take 325 mg by mouth. TAKE 1 TABLET EVERY 4 TO 6 HOURS NEEDED., Disp: , Rfl: ascorbic acid-vitamin E-biotin (Hair, Skin, Nails with Biotin) 7.5-7.5-1,250 mg-unit-mcg tablet,chewable, Chew 1 tablet once daily., Disp: , Rfl: atorvastatin (Lipitor) 40 mg tablet, Take 1 tablet (40 mg) by mouth once daily., Disp: , Rfl: dilTIAZem CD (Cardizem CD) 120 mg 24 hr capsule, Take 1 capsule (120 mg) by mouth once daily., Disp: , Rfl: escitalopram (Lexapro) 10 mg tablet, Take 1 tablet (10 mg) by mouth once daily., Disp: , Rfl: HYDROcodone-acetaminophen ([place]) 10-325 mg tablet, Take 1 tablet by mouth once daily., Disp: , Rfl: multivitamin (Daily Multi-Vitamin) tablet, Take 1 tablet by mouth once daily., Disp: , Rfl: rivaroxaban (Xarelto) 15 mg tablet, Take 1 tablet (15 mg) by mouth once daily at bedtime., Disp: , Rfl: rOPINIRole (Requip) 1 mg tablet, Take 1 tablet (1 mg) by mouth once daily at bedtime., Disp: , Rfl: sotalol (Betapace) 80 mg tablet, Take 1 tablet (80 mg) by mouth 2 times a day., Disp: , Rfl: Visit Vitals BP 122/64 (BP Location: Left arm, Patient Position: Sitting) Pulse 70 Ht 1.499 m (4' 11 ) Wt 74.8 kg (165 lb) BMI 33.33 kg/m Smoking Status Never BSA 1.76 m EKG done in office today Assessment/Plan 1. Persistent atrial fibrillation (CMS/HCC) 2. 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) 3. Chronic diastolic heart failure (CMS/HCC) 4. Essential hypertension, benign 5. Hyperlipidemia, unspecified hyperlipidemia type 6. Pacemaker 7. Sinus bradycardia 8. Anticoagulated 9. Class 1 obesity due to excess calories without serious comorbidity with body mass index (BMI) of 32.0 to 32.9 in adult 10. Stage 3a chronic kidney disease (CMS/HCC) 11. Dyspnea, unspecified type documented in this encounter [facility] Work Phone: 05-31-2023 Instructions Maggy Vee LPN - 05/31/2023 3:00 PM EDT Please bring all medicines, vitamins, and herbal supplements with you when you come to the office. Prescriptions will not be filled unless you are compliant with your follow up appointments or have a follow up appointment scheduled as per instruction of your physician. Refills should be requested at the time of your visit. documented in this encounter [facility] Work Phone: 03-21-2023 Evaluation note Encounter Date Diagnosis Assessment Notes Mar, Medicare annual wellness visit, subsequent (ICD-10 - Z00.00) Personalized health advice was given to the beneficiary including a written plan for screenings discussed and provided. Advanced care planning reviewed and/or information given as requested. Additional counseling was provided here today in regards to, [ ]. The above visit was performed by [ ], under direct supervision of [ ]. Document reviewed and amended by provider signed below. Mar, Paroxysmal atrial fibrillation (ICD-10 - I48.0) This patient is in NSR. This patient is anticoagulated to prevent thromboembolic events. They are maintaining regular scheduled appts with their window caser. No bleeding complications Mar, Chronic heart failure with preserved ejection fraction (ICD-10 - I50.32) Instructed on low salt diet, exercise and daily weights. Instructed to notify office for any unexpected weight gain > 3lbs and/or increased dyspnea, difficulty breathing during sleep, worsening lower extremity swelling, chest pain or lightheadedness. Mar, Stage 3a chronic kidney disease (ICD-10 - N18.31) The patient is instructed on adequate control of hypertension and diabetes, if appropriate. They are also educated on the associated risks of NSAIDs and PPI use with kidney disease. They were instructed on adequate fluid balance and to avoid dehydration. Mar, SOB (shortness of breath) (ICD-10 - R06.02) Multifactorial but mostly deconditioning. 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 PPI daily s/p surgery, which has failed Mar, Elevated cholesterol (ICD-10 - E78.00) Instructed on diet and exercise with continued statin therapy.Discussed the beneficial effects of lowering cholesterol in reducing the risk for cerebrovascular and cardiovascular disease. Mar, Primary hypertension (ICD-10 - I10) This patient is instructed to consume a healthy, low-fat, low-salt diet. They are also encouraged to continue exercise to achieve/maintain a normal BMI. Mar, Menopause (ICD-10 - Z78.0) DEXA scan hasn't been done in years. Ca and Vit D supplements Weight bearing exercises Mar, Mild episode of recurrent major depressive disorder (ICD-10 - F33.0) Mar, Fatigue, unspecified type (ICD-10 - R53.83) Mar, High risk medication use (ICD-10 - Z79.899) [employer] Other 04-10-2023 Consult note Author Debbie Mac [facility] November 27, 2022 11:58am Note Date/Time November 27, 2022 11: 48am [facility] [address] [place] [address] Cardiology Consult Note Signed Patient: Lesa Golden MR#: [id number] : 1940 Acct:[id number] Age/Sex: 82 / F Adm Date: 3 Loc: [place] Room: Type: [facility] Attending Dr: Wilbur Watson DO Copies to: DO Debbie Carias MD Paul C Laffay,~ Cardiology HPI History of Present Illness Consult Date: 11/27/22 Reason for Consult: Cardiac consultation requested for evaluation of atrial fibrillation which was noted preoperatively prior to cholecystectomy HPI: Ms. Golden is a 82 year old female well-known to me. She had a history of persistent atrial fibrillation with known tachybradycardia syndrome and sick sinus syndrome. She underwent implantation of a permanent pacemaker in the past. Unfortunately she had documented history of intolerance to amiodarone andTikosyn. She also known to have poor tolerance to atrial fibrillation. Ultimately she was placed on sotalol 80 mg twice daily and had been in sinus rhythm when I saw her in the office recently in September. Her QTc interval was borderline prolonged. She was scheduled to undergo elective cholecystectomy. She was noted to be in atrial fibrillation with slightly elevated heart rate. Patient report symptoms of shortness of breath and fatigue but denies chest pain. Her previous cardiac work-up including an echocardiogram which showed normal LV systolic function and a previous stress test in [place] that showed no evidence of myocardial ischemia. Review of Systems Review of Systems All other systems reviewed & are negative unless noted below or in HPI Constitutional Constitutional: Reports fatigue and Reports weakness Eyes Eyes: Reports system reviewed and no additional complaints, except as documented ENT Ears, Nose, Mouth, and Throat: Reports system reviewed and no additional complaints, except as documented Cardiovascular Cardiovascular: Reports dyspnea on exertion and Reports irregular heart rhythm Respiratory Respiratory: Reports dyspnea on exertion Gastrointestinal Comments: Patient report indigestion and early satiety Genitourinary Genitourinary: Reports system reviewed and no additional complaints, except as documented Musculoskeletal Musculoskeletal: Reports system reviewed and no additional complaints, except asdocumented Integumentary/Breasts Skin/Breast: Reports system reviewed and no additional complaints, except as documented Neurologic Neurologic: Reports system reviewed and no additional complaints, except as documented Psychiatric Psychiatric: Reports system reviewed and no additional complaints, except as documented Endocrine Endocrine: Reports system reviewed and no additional complaints, except as documented Hematologic/Lymphatic Hematologic/Lymphatic: Reports system reviewed and no additional complaints, except as documented Allergic/Immunologic Allergic/Immunologic: Reports system reviewed and no additional complaints, except as documented PMFSH Vaccinated for COVID-19?: Yes Medical History Arthritis back and neck Atrial fibrillation with RVR Atrial fibrillation, persistent CHF (congestive heart failure) COVID-19 2019 Depression Fibromyalgia Hernia of abdominal wall Hiatal hernia History of cardiac pacemaker in situ Hyperlipemia Hypertension Kidney stones removal of kidney stone R flank in 2021 Pacemaker Presbyesophagus Restless leg Surgical History H/O eye surgery right eye H/O foot surgery left History of appendectomy History of cataract surgery [facility] History of hysterectomy History of tonsillectomy Family History Father Heart & renal disease, hypertensive, with heart fail/chron kidney dis Depression Sister Heart disease Mother Brain tumor Social History Smoking Status: Never smoker Substance Use Type: None Social History Comments: independent living at the [facility] Medications and Allergies Allergies fentanyl Allergy (Verified 11/27/22 09:22) Unknown Reaction Sulfa (Sulfonamide Antibiotics) Adverse Reaction (Mild, Verified 11/27/22 09:22) Itching Home Medications atorvastatin 40 mg tablet 40 mg PO QNOON 12/14/20 [History Confirmed 11/20/22] escitalopram oxalate 10 mg tablet (Lexapro) 10 mg PO QHS 12/14/20 [History Confirmed 11/20/22] multivitamin 1 tab PO QAM 04/21/21 [History Confirmed 11/20/22] ropinirole 1 mg tablet 1 mg PO QHS 06/30/21 [History Confirmed 11/20/22] rivaroxaban 15 mg tablet (Xarelto) 15 mg PO HS 12/05/21 [History Confirmed 11/27/22] sotalol 80 mg tablet 80 mg PO BID 30 days #60 tabs 09/21/22 [Rx Confirmed 11/27/22] acetaminophen 325 mg tablet (Tylenol) 325 mg PO ONCE PRN Pain 11/20/22 [History Confirmed 11/20/22] Exam Physical Exam Vital Signs: Temp Pulse Resp BP Pulse Ox O2 Del Method 98.0 F 105 H 18 136/82 97 Room Air 11/27/22 09:24 11/27/22 09:24 11/27/22 09:24 11/27/22 09:24 11/27/22 09:24 11/27/22 09:24 Const General: cooperative, comfortable, no acute distress and well developed HEENT Head: atraumatic Mouth: oral mucosae normal Eyes General: appearance normal, both eyes and all related structures Pupils: PERRL Neck Neck: normal visual inspection, supple and no lymphadenopathy noted Neck mass: No Thyroid: thyroid normal Carotids: normal carotid upstroke Chest Chest palpation & inspection: normal inspection of the chest Resp Effort & Inspection: normal respiratory effort Auscultation: clear to auscultation bilaterally Cardio Palpation: normal PMI Rate: tachycardic Rhythm: abnormal rhythm irregularly irregular Heart Sounds: S1 normal and S2 normal GI Palpation: soft and no hepatosplenomegaly Percussion: normal to percussion Auscultation: normal bowel sounds Skin General: no rashes or lesions noted and dry skin Neuro General: patient alert, patient awake, patient oriented x3, tone normal and moves all extremities Extrem General: full ROM, capillary refill normal and no clubbing, cyanosis or edema Psych Mental Status: mental status grossly normal Results Labs Lab results: Comprehensive Metabolic Panel 11/27/22 Range/Units 09:46 Direct Bilirubin 0.20 H (0.03-0.18) mg/dL Indirect Bilirubin 0.6 mg/dL Alkaline Phosphatase 67 (34-104) U/L Intake and Output 11/26/22 11/27/22 11/27/22 23:59 07:59 15:59 Other: Weight 73 kg Patient Weight 11/27/22 23:59 Weight 73 kg EKG Interpretations EKG Attestation EKG: I reviewed this ECG and interpreted as documented below: (Atrial fibrillation with elevated heart rate and nonspecific ST-T changes) A&P - Cardiology (1) Atrial fibrillation, persistent: Code(s): I48.19 - Other persistent atrial fibrillation Plan Assessment 1. Persistent/recurrent atrial fibrillation/flutter with documented history of intolerance to amiodarone and Tikosyn. And now failed low-dose sotalol. This appears mildly symptomatic 2. No coronary artery disease with normal LV systolic function based on previous work-up 3. History of diastolic heart failure 4. Hypertension 5. Hyperlipidemia 6. Mild chronic kidney disease 7. History of nephrolithiasis 8. History of sick sinus syndrome with permanent pacemaker implantation Plan 1. I agree with canceling elective cholecystectomy 2. I discussed with the patient treatment option unfortunately she now failed 3antiarrhythmic. The only option that is left would be heart rate control which we tried in the past but did not tolerate due to development of diastolic heart failure versus pulmonary vein isolation and RF ablation for atrial fibrillation. I discussed treatment option with her and her sisters and they all agreed to proceed with ablation. 3. It appears that the patient symptoms of her gallbladder disease has been mild and her surgery is elective and can be delayed for now until atrial fibrillation is addressed 4. I advised the patient to resume her Xarelto and I will add diltiazem 120 mg to optimize heart rate control 5. I discussed the details with the patient and with Dr. Watson over the phone at great length Documented By: Debbie Mac MD 11/27/22 1144 Signed By: <Electronically signed by MD Debbie Mac> 11/27/22 1158 [facility] Work Phone: 1(269) 657-982804-10-2023 Progress note Author Emmanuel Holland [facility] November 27, 2022 11:10am Note Date/Time November 27, 2022 11: 10am [facility] [address] [place] [address] Anesthesia Progress Note Signed Patient: Lesa Golden MR#: [id number] : 1940 Acct:[id number] Age/Sex: 82 / F Adm Date: 3 Loc: [place] Room: Type: [facility] Attending Dr: Wilbur Watson DO Copies to: ~ Anesthesia Progress Note Narrative Narrative: Pt is tachycardic and irregularly irregular. She has been feeling tired and SOB. She said this happens when her heart is out of rhythm. Pt was cardioverted09/20/22 for AF/RVR. 12 lead ECG shows AF/RVR. Spoke to pt and Dr. Watson, all are in agreement to cancel for cardiac optimization prior to surgery. Documented By: Emmanuel Holland Jr, MD 11/27/22 1 107 Signed By: <Electronically signed by Emmanuel Holland Jr, MD> 11/27/22 1110 [facility] Work Phone: 1(100) 682-682303-13-2023 Evaluation note* Encounter Date Diagnosis Assessment Notes Treatment Notes Treatment Clinical Notes Oct, Pulmonary nodule (ICD-10 - R91.1) CT chest: no nodules - 10/2022 [employer] Other 03-07-2023 Evaluation note* Encounter Date Diagnosis Assessment Notes Treatment Notes Treatment Clinical Notes Oct, Intertrigo (ICD-10 - L30.4) Rx sent, use as directed. Practice good hygiene, wash area with mild cleanser and warm water. Pat or blow dry (cool setting) effectively. Instructed patient to keep affected areas clean and dry. Use absorbent material or clothing such as cotton. F/u in 1 week or sooner if s/s persists or worsens. Patient verbalized understanding and agreement of tx plan. [facility] [employer] Other 02-02-2023 Discharge summary Author Sam Dukes [facility] September 21, 2022 3:33pm Note Date/Time September 21, 2022 3 :17pm [facility] [address] [place] [address] Discharge Summary Signed Patient: Lesa Golden MR#: [id number] : 1940 Acct:[id number] Age/Sex: 82 / F Adm Date: 3 Loc: Room: [address] [place] [address]: Sam Dukes DO Copies to: DO Sam Carias DO~ Providers Date of Discharge: 09/21/22 Discharging Provider: Sam Dukes Primary Care Provider: Chester العلي Consults: 09/17/22 17:34 Consult to Cardiology Routine Discharge Diagnosis (1) Syncope: Final Diagnosis Final Discharge Diagnosis: In addition to the above diagnoses: 2. Left ventricular systolic dysfunction, NYHA class II 3. Dyspnea on exertion 4. Hypertension 5. Atrial fibrillation 6. E. coli urinary tract infection Summary Hospital Course Hospital course: This patient is an 82-year-old female presented to the emergency department on 09/17/2022 with a report of syncope and collapse. The patient was outside of [facility] when she suddenly lost consciousness. Work-up in the ER was atraumatic however was noted to be in A. fib with RVR. She was subsequently admitted afterbeing started on a Cardizem bolus and drip. Work-up for syncope was performed including ultrasound the carotid arteries revealing no significant obstructive disease. She has a documented history of intolerance to both amiodarone and Tikosyn prescribed previously. She was subsequently initiated on sotalol by cardiology was consulted. She remained in refractory atrial fibrillation and eventually underwent a DC cardioversion on 09/20/2022 with conversion to normal sinus rhythm. Urinalysis did show 3+ bacteria and urine culture grew pansensitive E. coli. The patient was started on ceftriaxone. She had no symptoms of dysuria however given her advanced age and risk of complicated UTI we will treat this for a full 5 days. Antibiotic prescribed on discharge. Furthermore the patient did suffer a vasovagal episode after toileting while shewas in atrial fibrillation before cardioversion. Suspect all the patient's ongoing dyspnea and syncopal episodes were a result of her A. fib. Symptomatically she has improved with being in a normal sinus rhythm. She does report some generalized fatigue on day of discharge. Her work-up this morning shows no evidence of worsening cardiac disease, chest congestion or evidence of progressing infection. If the patient remains hemodynamically stable, remains alert and tolerates dinner this evening we will discharge her to follow-up with PCP and cardiology. Metoprolol discontinued and sotalol prescribed on discharge. Physical Examination: GENERAL APPEARANCE: Alert, up in bed AAOx3 HEENT: NCAT, MMM CARDIAC: Normal S1 and S2. No S3, S4 or murmurs.? Regular rate and rhythm LUNGS: Clear to auscultation bilaterally with bibasilar rales noted ABDOMEN: Positive bowel sounds. Soft, nontender. No guarding or signs of an acute abdomen MUSCULOSKELETAL: No joint erythema or tenderness. EXTREMITIES: No clubbing, cyanosis or edema PSYCHIATRIC: Appropriate mood and affect 40 minutes were spent coordinating the discharge of this patient. Time Spent with Patient Time spent providing/coordinating discharge services (# min): 40 Diagnostic Studies Completed and Pending Studies Pending studies at discharge: 09/22/22 05:00 Basic Metabolic Panel [CHEM] IN AM Magnesium [CHEM] IN AM 09/23/22 05:00 Basic Metabolic Panel [CHEM] IN AM Magnesium [CHEM] IN AM Labs on day of discharge: 09/21/22 09:58: B-Natriuretic Peptide 203.0 H 09/21/22 09:58: Total Creatine Kinase 76, CK-MB (CK-2) 1.9, CK-MB (CK-2) Rel Index 2.5, Troponin I High Sens 9 09/21/22 04:14: Corrected WBC 5.7, Uncorrected WBC Count 5.7, RBC 4.41, Hgb 13.0, Hct 39.6, MCV 89.8, MCH 29.6, MCHC 32.9, RDW 13.5, Plt Count 173, MPV 9.5, Neut % (Auto) 68.2, Lymph % (Auto) 18.9, [place] % (Auto) 7.6, Eos % (Auto) 4.6, Baso % (Auto) 0.7, Nucleat RBC Rel Count 0.0, Neut # (Auto) 3.9, Lymph # (Auto) 1.1, [place] # (Auto) 0.4, Eos # (Auto) 0.3, Baso # (Auto) 0.0 09/21/22 04:14: PHA Creatinine Clear 37.27, Sodium 137, Potassium 3.9, Chloride 107, Carbon Dioxide 22.9, Anion Gap 11.0, BUN 18, Creatinine 1.08 H, Est GFR ( Amer) 59, Est GFR (Non-Af Amer) 49, Glucose 94, Calcium 8.6, Magnesium 1.8 Exam Physical Exam Vital Signs: Temp Pulse Resp BP Pulse Ox O2 Del Method 97.7 F 74 18 129/71 95 Room Air 09/21/22 11:19 09/21/22 11:19 09/21/22 11:19 09/21/22 11:19 09/21/22 11:19 09/21/22 11:19 Discharge Plan Discharge Plan Patient Disposition: Home Activity: Ambulate as Tolerated Diet: Low-Sodium and Low-Cholesterol Additional Instructions: You are scheduled for an EKG at /[facility] Office on 09/27/2022 at 1:00pm Instructions: Heart Failure, Adult (DC) Prescriptions: New sotalol 80 mg Tablet 80 mg PO BID 30 Days Qty: 60 12RF cephalexin 500 mg capsule 500 mg PO BID 2 Days Qty: 4 0RF Continued Xarelto 15 mg tablet 15 mg PO HS Patient Comments: TAKE 1 TABLET BY MOUTH EVERYDAY AT BEDTIME atorvastatin 40 mg tablet 40 mg PO HS Patient Comments: TAKE 1 TABLET BY MOUTH EVERY DAY IN THE EVENING escitalopram oxalate 10 mg tablet 10 mg PO QHS multivitamin Tablet 1 tab PO DAILY ropinirole 1 mg tablet 1 mg PO QHS spironolactone 25 mg Tablet 12.5 mg PO DAILY 30 Days Qty: 15 12RF Discontinued metoprolol tartrate 100 mg Tablet 100 mg PO BID 30 Days Qty: 60 12RF Follow Up: Debbie Mac MD [Active Staff] - 10/13/22 10:30 am Chester العلي DO [Primary Care Provider] - 09/25/22 10:30 am (You have been scheduled for a follow up appointment for the following date and time, please call to reschedule if needed. This appointment will be with Dr. Larios. ) Documented By: Sam Dukes DO 09/21/22 15 07 Signed By: <Electronically signed by Sam Dukes DO> 09/21/22 [facility] Work Phone: 1(216) 325-821102-02-2023 Progress note Author Debbie Mac [facility] September 21, 2022 9:48am Note Date/Time September 21, 2022 9 :45am [facility] [address] [place] [address] Cardiology Progress Note Signed Patient: Lesa Golden MR#: [id number] : 1940 Acct:[id number] Age/Sex: 82 / F Adm Date: 3 Loc: Room: [address] [place] [address] Type: ADM IN Attending Dr: Sam Dukes DO Copies to: ~ Date of Service: 09/21/2022 Subjective Interval history: Patient remains in AV paced rhythm following cardioversion. QTc is 460 ms. However when she woke up earlier in the morning patient reported increasing shortness of breath and epigastric discomfort. She reports she is simply not feeling very well Exam Physical Exam Vital Signs: Temp Pulse Resp BP Pulse Ox O2 Del Method 97.2 F L 71 18 143/86 H 96 Room Air 09/21/22 08:00 09/21/22 08:00 09/21/22 08:00 09/21/22 08:00 09/21/22 08:00 09/21/22 09:21 Const General: cooperative Neck Neck: supple Lymphatic: no lymphadenopathy noted Resp Effort & Inspection: normal respiratory effort Auscultation: clear to auscultation bilaterally Cardio Palpation: normal PMI Rate: regular rate Rhythm: regular rhythm Heart Sounds: S1 normal and S2 normal Skin General: dry skin Extrem General: full ROM and no clubbing, cyanosis or edema Objective Labs 09/21/22 04:14 09/21/22 04:14 Labs: Laboratory Results - last 24 hr 09/21/22 09/21/22 04:14 04:14 Corrected WBC 5.7 Uncorrected WBC Count 5.7 RBC 4.41 Hgb 13.0 Hct 39.6 MCV 89.8 MCH 29.6 MCHC 32.9 RDW 13.5 Plt Count 173 MPV 9.5 Neut % (Auto) 68.2 Lymph % (Auto) 18.9 [place] % (Auto) 7.6 Eos % (Auto) 4.6 Baso % (Auto) 0.7 Nucleat RBC Rel Count 0.0 Neut # (Auto) 3.9 Lymph # (Auto) 1.1 [place] # (Auto) 0.4 Eos # (Auto) 0.3 Baso # (Auto) 0.0 PHA Creatinine Clear 37.27 Sodium 137 Potassium 3.9 Chloride 107 Carbon Dioxide 22.9 Anion Gap 11.0 BUN 18 Creatinine 1.08 H Est GFR ( Amer) 59 Est GFR (Non-Af Amer) 49 Glucose 94 Calcium 8.6 Magnesium 1.8 A&P - Cardiology (1) Syncope: Qualifiers: Syncope type: unspecified Qualified Code(s): R55 - Syncope and collapse Code(s): R55 - Syncope and collapse Status: Acute Plan Assessment 1.? Syncope etiology unclear could be related to her atrial fibrillation.? Carotid Doppler is negative.? Pacemaker failed to demonstrate significant arrhythmia 2.? Atrial fibrillation difficult to control.? She has history of intolerance toamiodarone and recently did not tolerate Tikosyn because of prolonged QTc interval. Underwent successful cardioversion yesterday following sotalol load 3.? Sick sinus syndrome with permanent pacemaker implantation 4.? Shortness of breath with recent documentation of mild LV systolic dysfunction with LVEF around 40%. Today she describing worsening shortness of breath 5.? Long-term anticoagulation due to atrial fibrillation 6.? Mild chronic kidney disease Plan 1.? We will check chest x-ray and a BMP and cardiac enzyme and if you patient complains. We will repeat her EKG Time 2.? Risk, benefit and alternative of sotalol and cardioversion reviewed with patient.? If she failed sotalol the only other option would be ablation Documented By: Debbie Mac MD 09/21/22 0944 Signed By: <Electronically signed by MD Debbie Mac> 09/21/22 0948 [facility] Work Phone: [phone] 731-497802-01-2023 Progress note Author Sam Dukes [facility] September 20, 2022 3:21pm Note Date/Time September 20, 2022 3 :21pm [facility] [address] [place] [address] Hospitalist Progress Note Signed Patient: Lesa Golden MR#: [id number] : 1940 Acct:[id number] Age/Sex: 82 / F Adm Date: 3 Loc: Room: [address] [place] [address] Type: ADM IN Attending Dr: Sma Dukes DO Copies to: ~ Date of Service: 09/20/2022 Subjective Subjective Narrative: I personally saw and examined the patient the bedside this afternoon. Underwentcardioversion earlier today. States her breathing has since improved. Physical Examination: GENERAL APPEARANCE: Alert, up in bed AAOx3 HEENT: NCAT, MMM CARDIAC: Normal S1 and S2. No S3, S4 or murmurs. Regular rate and rhythm LUNGS: Clear to auscultation bilaterally with bibasilar rales noted ABDOMEN: Positive bowel sounds. Soft, nontender. No guarding or signs of an acute abdomen MUSCULOSKELETAL: No joint erythema or tenderness. EXTREMITIES: No clubbing, cyanosis or edema PSYCHIATRIC: Appropriate mood and affect Exam Physical Exam Vital Signs: Temp Pulse Resp BP Pulse Ox O2 Del Method 97.1 F L 72 20 119/65 96 Room Air 09/20/22 10:52 09/20/22 10:52 09/20/22 10:52 09/20/22 10:52 09/20/22 10:52 09/20/22 12:00 Objective Lab Results 09/20/22 04:20 09/20/22 04:20 Meds Allergies and Active Meds Allergies fentanyl Allergy (Verified 09/17/22 12:57) Unknown Reaction Sulfa (Sulfonamide Antibiotics) Adverse Reaction (Mild, Verified 09/17/22 12:57) Itching Active Meds: Active Medications Generic Name Dose Route Start Last Admin Trade Name Freq PRN Reason Stop Dose Admin Acetaminophen 650 mg 09/17/22 17:34 09/20/22 07:58 Acetaminophen 325 Mg Tablet PO 09/17/23 17:33 650 mg Q6HR PRN Administration Pain Scale 1 - 3 or fever Atorvastatin Calcium 40 mg 09/17/22 22:00 09/19/22 21:11 Atorvastatin 40 Mg Tablet PO 09/17/23 21:59 40 mg HS KWAN Administration Atropine Sulfate 1 mg 09/20/22 10:00 Atropine Sulfate 1 Mg/10 Ml Syringe IV-PUSH ONCE PRN Bradycardia Escitalopram Oxalate 10 mg 09/17/22 22:00 09/19/22 21:11 Escitalopram 10 Mg Tablet PO 09/17/23 21:59 10 mg QHS KWAN Administration Ceftriaxone Sodium 1 gm in 50 mls @ 100 mls/hr 09/19/22 04:30 09/20/22 05:39 Rocephin IV 09/23/22 04:59 100 mls/hr Q24H KWAN Administration Dextrose/Sodium Chloride 1,000 mls @ 20 mls/hr 09/20/22 10:00 09/20/22 09:11 5 % Dextrose-0.45 % Nacl IV 09/21/22 09:59 20 mls/hr .Q24H ONE Administration Multivitamins 1 tab 09/18/22 09:00 09/20/22 07:58 Multivitamin 1 Tab Tablet PO 09/18/23 08:59 1 tab DAILY KWAN Administration Potassium Chloride 40 meq 09/20/22 07:00 Potassium Chloride Er 20 Meq Tab.Er.Prt PO STAT PRN Hypokalemia Rivaroxaban 15 mg 09/17/22 22:00 09/19/22 21:12 Rivaroxaban 15 Mg Tablet PO 09/17/23 21:59 15 mg HS KWAN Administration Ropinirole HCl 2 mg 09/17/22 21:00 09/19/22 21:19 Ropinirole 2 Mg Tablet PO 09/17/23 20:59 2 mg QPM KWAN Administration Sodium Chloride 0 ml 09/17/22 12:56 09/20/22 10:20 Sodium Chloride 0.9 % 10 Ml Syringe IV-PUSH 09/17/23 12:55 20 ml PRN PRN Administration Flush Sodium Chloride 0 ml 09/17/22 22:00 09/20/22 13:09 Sodium Chloride 0.9 % 10 Ml Syringe IV-PUSH 09/17/23 21:59 10 ml QSHIFT KWAN Administration Sodium Chloride 0 ml 09/19/22 10:07 Sodium Chloride 0.9 % 10 Ml Syringe IV-PUSH 09/19/23 10:06 PRN PRN Flush Sotalol HCl 80 mg 09/18/22 21:00 09/20/22 07:57 Sotalol 80 Mg Tablet PO 09/18/23 20:59 80 mg BID KWAN Administration Spironolactone 12.5 mg 09/18/22 09:00 09/20/22 07:57 Spironolactone 12.5 Mg Tablet PO 09/18/23 08:59 12.5 mg DAILY KWAN Administration A&P - Hospitalist Assessment/Plan (1) Syncope: (2) Left ventricular systolic dysfunction, NYHA class 2: (3) Dyspnea on exertion: (4) Hypertension: (5) Atrial fibrillation with rapid ventricular response: (6) Anticoagulated: Plan Symptomatically the patient is doing well status post cardioversion earlier today. Blood pressure is controlled. Chest x-ray and BNP level suggests no severe evidence of heart failure exacerbation. We will monitor 1 more day for any worsening shortness of breath or recurrent syncopal episodes. Documented By: Sam Dukes DO 09/20/22 15 17 Signed By: <Electronically signed by Sam Dukes DO> 09/20/22 1521 [facility] Work Phone: [phone] 142-751402-01-2023 History of Present illness Narrative* Lesa Golden is an 82 y/o female referred by Dr Mac for evaluation of AF. * PMH includes HTN, HLD, HF, SSS s/p PPG implant, CKD, obesity and AF. * Treatment of her AF includes Amiodarone (d/c d for concerns of terminal operations manager side effects), tikosyn (prolonged OTc), sotalol and DCCV (09/2022). * Symptoms of her AF include fatigue and BRAY. * Pt follows with Dr Stover for management of her AF. Pt has previously been on Amio but was concerned about usp side effects. She was then put on Tikosyn but did not tolerate d/t a prolonged QTc. Pt has tolerated low dose sotalol 80 mg BID but has had break through episodes of symptomaticAF. * Pt is currently managed on Xarelto (15 mg d/t renal function) and Sotalol. Pt presents today to discuss AF ablation for management of recurrent AF despite AAD s. * TODAY'S ECG: NOT CLEAR BUT SUGGESTIVE OF ATYPICAL A FLUTTER WITH 2:1 AV CONDUCTION @ 109 bpm * Echo 08/2022 ([facility]): LVEF 40%, moderate anteroseptal hypokinesis with wall motion suggestive of conduction abnormality, LA mildly dilated, trace MR & TR * Echo 06/2021: EF 45%, severe anteroseptal hypokinesis, mild-mod DD, LA mildly dilated, mild-mod MR,mild TR, mild-mod pHTN [id number] Work Phone: [phone] History of Present illness Narrative* Lesa Golden is an 82 y/o female referred by Dr Mac for evaluation of AF. * PMH includes HTN, HLD, HF, SSS s/p PPG implant, CKD, obesity and AF. * Treatment of her AF includes Amiodarone (d/c d for concerns of usp side effects), tikosyn (prolonged OTc), sotalol and DCCV (09/2022). * Symptoms of her AF include fatigue and BRAY. * Pt follows with Dr Stover for management of her AF. Pt has previously been on Amio but was concerned about terminal operations manager side effects. She was then put on Tikosyn but did not tolerate d/t a prolonged QTc. Pt has tolerated low dose sotalol 80 mg BID but has had break through episodes of symptomaticAF. * Pt is currently managed on Xarelto (15 mg d/t renal function) and Sotalol. Pt presents today to discuss AF ablation for management of recurrent AF despite AAD s. * TODAY'S ECG: NOT CLEAR BUT SUGGESTIVE OF ATYPICAL A FLUTTER WITH 2:1 AV CONDUCTION @ 109 bpm * Echo 08/2022 ([facility]): LVEF 40%, moderate anteroseptal hypokinesis with wall motion suggestive of conduction abnormality, LA mildly dilated, trace MR & TR * Echo 06/2021: EF 45%, severe anteroseptal hypokinesis, mild-mod DD, LA mildly dilated, mild-mod MR,mild TR, mild-mod pHTN [id number] [address] [place] Work Phone: [phone] 500-751902-01-2023 Progress note Author Debbie Mac [facility] September 20, 2022 9:04am Note Date/Time September 20, 2022 9 :03am [facility] [address] [place] [address] Cardiology Progress Note Signed Patient: Lesa Golden MR#: [id number] : 1940 Acct:[id number] Age/Sex: 82 / F Adm Date: 3 Loc: Room: [address] [place] [address] Type: ADM IN Attending Dr: Sam Dukes DO Copies to: ~ Date of Service: 09/20/2022 Subjective Interval history: Patient feels better. Shortness of breath improved. Heart rate controlled. Carotid Doppler showed no significant disease. Pacemaker check is pending. QTcinterval is 461 ms Exam Physical Exam Vital Signs: Temp Pulse Resp BP Pulse Ox O2 Del Method 98.1 F 94 H 20 118/81 95 Room Air 09/20/22 07:34 09/20/22 07:34 09/20/22 07:34 09/20/22 07:34 09/20/22 07:34 09/20/22 08:03 Eyes General: appearance normal, both eyes and all related structures Pupils: PERRL Neck Neck: normal visual inspection, supple and no lymphadenopathy noted Neck mass: No Thyroid: thyroid normal Carotids: normal carotid upstroke Chest Chest palpation & inspection: normal inspection of the chest Resp Effort & Inspection: normal respiratory effort Auscultation: rhonchi Cardio Palpation: normal PMI Rhythm: abnormal rhythm irregularly irregular Heart Sounds: S1 normal and S2 normal GI Palpation: soft and no hepatosplenomegaly Percussion: normal to percussion Auscultation: normal bowel sounds Skin General: no rashes or lesions noted and dry skin Neuro General: patient alert, patient awake, patient oriented x3, tone normal and moves all extremities Objective Labs 09/20/22 04:20 09/20/22 04:20 Labs: Laboratory Results - last 24 hr 09/20/22 09/20/22 09/20/22 04:20 04:20 04:20 Corrected WBC 5.4 Uncorrected WBC Count 5.4 RBC 4.51 Hgb 13.4 Hct 40.7 MCV 90.3 MCH 29.8 MCHC 33.0 RDW 13.4 Plt Count 171 MPV 9.3 Neut % (Auto) 65.4 Lymph % (Auto) 22.6 [place] % (Auto) 6.8 Eos % (Auto) 4.5 Baso % (Auto) 0.7 Nucleat RBC Rel Count 0.2 Neut # (Auto) 3.6 Lymph # (Auto) 1.2 [place] # (Auto) 0.4 Eos # (Auto) 0.2 Baso # (Auto) 0.0 PHA Creatinine Clear 35.18 Sodium 137 Potassium 3.9 Chloride 108 Carbon Dioxide 22.0 Anion Gap 10.9 BUN 18 Creatinine 1.14 H Est GFR ( Amer) 55 Est GFR (Non-Af Amer) 46 Glucose 98 Calcium 8.7 Magnesium 1.9 B-Natriuretic Peptide 256.0 H A&P - Cardiology (1) Syncope: Qualifiers: Syncope type: unspecified Qualified Code(s): R55 - Syncope and collapse Code(s): R55 - Syncope and collapse Status: Acute Plan Assessment 1. Syncope etiology unclear could be related to her atrial fibrillation. Carotid Doppler is negative. Pacemaker check is pending 2. Atrial fibrillation difficult to control. She has history of intolerance toamiodarone and recently did not tolerate Tikosyn because of prolonged QTc interval 3. Sick sinus syndrome with permanent pacemaker implantation 4. Shortness of breath with recent documentation of mild LV systolic dysfunction with LVEF around 40% 5. Long-term anticoagulation due to atrial fibrillation 6. Mild chronic kidney disease Plan 1. Continue sotalol load. Cardioversion today. Risk, benefit alternative reviewed with patient at length she understood and agreed 2. Risk, benefit and alternative of sotalol and cardioversion reviewed with patient. If she failed sotalol the only other option would be ablation 3. Awaiting pacemaker check Documented By: Debbie Mac MD 09/20/22902 Signed By: <Electronically signed by MD Debbie Mac> 09/20/22 0904 [facility] Work Phone: [phone] 613-934102-01-2023 [facility] Progress note Author Sam Dukes [facility] September 19, 2022 6:52pm Note Date/Time September 19, 2022 6 :52pm [facility] [address] [place] [address] Hospitalist Progress Note Signed Patient: Lesa Golden MR#: [id number] : 1940 Acct:[id number] Age/Sex: 82 / F Adm Date: 3 Loc: Room: [address] [place] [address] Type: ADM IN Attending Dr: Sam Dukes DO Copies to: ~ Date of Service: 09/19/2022 Subjective Subjective Narrative: I personally saw and examined the patient the bedside this afternoon. Continuedexertional dyspnea. Vasovagal syncope last night Physical Examination: GENERAL APPEARANCE: Alert, up in bed AAOx3 HEENT: NCAT, MMM CARDIAC: Normal S1 and S2. No S3, S4 or murmurs. Irregularly irregular rhythm. Mildly tachycardic LUNGS: Clear to auscultation bilaterally with bibasilar rales noted ABDOMEN: Positive bowel sounds. Soft, nontender. No guarding or signs of an acute abdomen MUSCULOSKELETAL: No joint erythema or tenderness. EXTREMITIES: No clubbing, cyanosis or edema PSYCHIATRIC: Appropriate mood and affect Exam Physical Exam Vital Signs: Temp Pulse Resp BP Pulse Ox O2 Del Method 97.4 F L 92 H 20 118/72 96 Room Air 09/19/22 15:35 09/19/22 15:35 09/19/22 15:35 09/19/22 15:35 09/19/22 15:35 09/19/22 16:05 Objective Lab Results 09/19/22 04:22 09/19/22 04:22 Microbiology Results Microbiology 09/17/22 13:19 Urine - Clean-Voided Midstream Urine Culture - Final Escherichia coli Meds Allergies and Active Meds Allergies fentanyl Allergy (Verified 09/17/22 12:57) Unknown Reaction Sulfa (Sulfonamide Antibiotics) Adverse Reaction (Mild, Verified 09/17/22 12:57) Itching Active Meds: Active Medications Generic Name Dose Route Start Last Admin Trade Name Freq PRN Reason Stop Dose Admin Acetaminophen 650 mg 09/17/22 17:34 09/19/22 11:24 Acetaminophen 325 Mg Tablet PO 09/17/23 17:33 650 mg Q6HR PRN Administration Pain Scale 1 - 3 or fever Atorvastatin Calcium 40 mg 09/17/22 22:00 09/18/22 22:58 Atorvastatin 40 Mg Tablet PO 09/17/23 21:59 40 mg HS KWAN Administration Atropine Sulfate 1 mg 09/20/22 10:00 Atropine Sulfate 1 Mg/10 Ml Syringe IV-PUSH ONCE PRN Bradycardia Escitalopram Oxalate 10 mg 09/17/22 22:00 09/18/22 22:58 Escitalopram 10 Mg Tablet PO 09/17/23 21:59 10 mg QHS KWAN Administration Ceftriaxone Sodium 1 gm in 50 mls @ 100 mls/hr 09/19/22 04:30 09/19/22 05:13 Rocephin IV 100 mls/hr Q24H KWAN Administration Dextrose/Sodium Chloride 1,000 mls @ 20 mls/hr 09/20/22 10:00 5 % Dextrose-0.45 % Nacl IV 09/21/22 09:59 .Q24H ONE Multivitamins 1 tab 09/18/22 09:00 09/19/22 09:09 Multivitamin 1 Tab Tablet PO 09/18/23 08:59 1 tab DAILY KWAN Administration Potassium Chloride 40 meq 09/20/22 07:00 Potassium Chloride Er 20 Meq Tab.Er.Prt PO STAT PRN Hypokalemia Propofol 0 mg 09/20/22 10:00 Propofol 200 Mg/20 Ml Vial IV-PUSH 09/20/22 10:01 ONCE ONE Rivaroxaban 15 mg 09/17/22 22:00 09/18/22 22:58 Rivaroxaban 15 Mg Tablet PO 09/17/23 21:59 15 mg HS KWAN Administration Ropinirole HCl 2 mg 09/17/22 21:00 09/18/22 22:58 Ropinirole 2 Mg Tablet PO 09/17/23 20:59 2 mg QPM KWAN Administration Sodium Chloride 0 ml 09/17/22 12:56 09/17/22 14:36 Sodium Chloride 0.9 % 10 Ml Syringe IV-PUSH 09/17/23 12:55 10 ml PRN PRN Administration Flush Sodium Chloride 0 ml 09/17/22 22:00 09/19/22 13:45 Sodium Chloride 0.9 % 10 Ml Syringe IV-PUSH 09/17/23 21:59 10 ml QSHIFT KWAN Administration Sodium Chloride 0 ml 09/19/22 10:07 Sodium Chloride 0.9 % 10 Ml Syringe IV-PUSH 09/19/23 10:06 PRN PRN Flush Sotalol HCl 80 mg 09/18/22 21:00 09/19/22 09:10 Sotalol 80 Mg Tablet PO 09/18/23 20:59 80 mg BID KWAN Administration Spironolactone 12.5 mg 09/18/22 09:00 09/19/22 09:09 Spironolactone 12.5 Mg Tablet PO 09/18/23 08:59 12.5 mg DAILY KWAN Administration Triamcinolone Acetonide 1 applic 09/20/22 10:00 Triamcinolone 0.1% Cream 15 Gm Tube TOPICAL 09/20/22 10:01 ONCE ONE A&P - Hospitalist Assessment/Plan (1) Syncope: (2) Left ventricular systolic dysfunction, NYHA class 2: (3) Dyspnea on exertion: (4) Hypertension: (5) Atrial fibrillation with rapid ventricular response: (6) Anticoagulated: Plan Patient likely suffered vasovagal syncope this past evening. I still suspect this is largely in part due to the ongoing atrial fibrillation. She is rate controlled however still in atrial fibrillation at the moment. She has continued exertional dyspnea which may respond to some diuretics. Will obtain achest x-ray tomorrow to see if there is any evidence of ongoing overload howeverat this time the patient is only on Aldactone. She has no focal deficits or postictal type of symptoms to suggest neurologic phenomenon at this time. Documented By: Sam Dukes DO 09/19/22 18 51 Signed By: <Electronically signed by Sam Dukes DO> 09/19/22 5044 [facility] Work Phone: 1(523) 482-445801-31-2023 Progress note Author Debbie Mac [facility] September 19, 2022 9:57am Note Date/Time September 19, 2022 9 :57am [facility] [address] [place], [place] [id number] Cardiology Progress Note Signed Patient: Lesa Golden MR#: [id number] : 1940 Acct:[id number] Age/Sex: 82 / F Adm Date: 3 Loc: Room: [address] [place] [address] Type: ADM IN Attending Dr: Sam Dukes DO Copies to: ~ Date of Service: 09/19/2022 Subjective Interval history: Patient feels better. Shortness of breath improved. Heart rate controlled. Carotid Doppler showed no significant disease. Pacemaker check is pending. QTcinterval is 470 ms Exam Physical Exam Vital Signs: Temp Pulse Resp BP Pulse Ox O2 Del Method 97.6 F 100 H 20 122/75 95 Room Air 09/19/22 07:42 09/19/22 07:42 09/19/22 07:42 09/19/22 07:42 09/19/22 07:42 09/19/22 09:02 Eyes General: appearance normal, both eyes and all related structures Pupils: PERRL Neck Neck: normal visual inspection, supple and no lymphadenopathy noted Neck mass: No Thyroid: thyroid normal Carotids: normal carotid upstroke Chest Chest palpation & inspection: normal inspection of the chest Resp Effort & Inspection: normal respiratory effort Auscultation: rhonchi Cardio Palpation: normal PMI Rhythm: abnormal rhythm irregularly irregular Heart Sounds: S1 normal and S2 normal GI Palpation: soft and no hepatosplenomegaly Percussion: normal to percussion Auscultation: normal bowel sounds Extrem General: full ROM, capillary refill normal and no clubbing, cyanosis or edema Objective Labs 09/19/22 04:22 09/19/22 04:22 Labs: Laboratory Results - last 24 hr 09/19/22 09/19/22 09/19/22 03:53 04:22 04:22 Corrected WBC 6.1 Uncorrected WBC Count 6.1 RBC 4.54 Hgb 13.6 Hct 41.3 MCV 91.0 MCH 29.9 MCHC 32.8 RDW 13.3 Plt Count 178 MPV 9.5 Neut % (Auto) 68.4 Lymph % (Auto) 20.4 [place] % (Auto) 6.6 Eos % (Auto) 4.0 Baso % (Auto) 0.6 Nucleat RBC Rel Count 0.1 Neut # (Auto) 4.2 Lymph # (Auto) 1.2 [place] # (Auto) 0.4 Eos # (Auto) 0.2 Baso # (Auto) 0.0 PHA Creatinine Clear 35.51 Sodium 137 Potassium 4.0 Chloride 107 Carbon Dioxide 23.3 Anion Gap 10.7 BUN 19 Creatinine 1.12 H Est GFR ( Amer) 57 Est GFR (Non-Af Amer) 47 Glucose 101 H POC Glucose 93 POC Glucose Comment Glu2: cleaned meter Calcium 8.9 Magnesium 2.0 A&P - Cardiology (1) Syncope: Qualifiers: Syncope type: unspecified Qualified Code(s): R55 - Syncope and collapse Code(s): R55 - Syncope and collapse Status: Acute Plan Assessment 1. Syncope etiology unclear could be related to her atrial fibrillation. Carotid Doppler is negative. Pacemaker check is pending 2. Atrial fibrillation difficult to control. She has history of intolerance toamiodarone and recently did not tolerate Tikosyn because of prolonged QTc interval 3. Sick sinus syndrome with permanent pacemaker implantation 4. Shortness of breath with recent documentation of mild LV systolic dysfunction with LVEF around 40% 5. Long-term anticoagulation due to atrial fibrillation 6. Mild chronic kidney disease Plan 1. Continue sotalol load and plan to proceed with cardioversion tomorrow if QTcinterval is acceptable 2. Risk, benefit and alternative of sotalol and cardioversion reviewed with patient. If she failed sotalol the only other option would be ablation 3. Awaiting pacemaker check Documented By: Debbie Mac MD 09/19/22 0955 Signed By: <Electronically signed by MD Debbie Mac> 09/19/22 0957 [facility] Work Phone: 1(783) 653-638101-30-2023 Progress note Author Sam Dukes [facility] September 18, 2022 6:04pm Note Date/Time September 18, 2022 6 :04pm [facility] [address] [place] [address] Hospitalist Progress Note Signed Patient: Lesa Golden MR#: [id number] : 1940 Acct:[id number] Age/Sex: 82 / F Adm Date: 3 Loc: 4 Room: [address] [place] [address] Type: ADM IN Attending Dr: Sam Dukes DO Copies to: ~ Date of Service: 09/18/2022 Subjective Subjective Narrative: I personally saw and examined the patient the bedside this afternoon. She complains of ongoing exertional dyspnea. Physical Examination: GENERAL APPEARANCE: Alert, up in bed AAOx3 HEENT: NCAT, MMM CARDIAC: Normal S1 and S2. No S3, S4 or murmurs. Irregularly irregular rhythm. Mildly tachycardic LUNGS: Clear to auscultation bilaterally with bibasilar rales noted ABDOMEN: Positive bowel sounds. Soft, nontender. No guarding or signs of an acute abdomen MUSCULOSKELETAL: No joint erythema or tenderness. EXTREMITIES: No clubbing, cyanosis or edema PSYCHIATRIC: Appropriate mood and affect Exam Physical Exam Vital Signs: Temp Pulse Resp BP Pulse Ox O2 Del Method 97.4 F L 103 H 20 136/81 97 Room Air 09/18/22 16:00 09/18/22 16:00 09/18/22 16:00 09/18/22 16:00 09/18/22 16:00 09/18/22 16:00 Objective Lab Results 09/17/22 13:19 09/17/22 13:19 Microbiology Results Microbiology 09/17/22 13:19 Urine - Clean-Voided Midstream Urine Culture - Preliminary Escherichia coli Meds Allergies and Active Meds Allergies fentanyl Allergy (Verified 09/17/22 12:57) Unknown Reaction Sulfa (Sulfonamide Antibiotics) Adverse Reaction (Mild, Verified 09/17/22 12:57) Itching Active Meds: Active Medications Generic Name Dose Route Start Last Admin Trade Name Freq PRN Reason Stop Dose Admin Acetaminophen 650 mg 09/17/22 17:34 09/18/22 16:35 Acetaminophen 325 Mg Tablet PO 09/17/23 17:33 650 mg Q6HR PRN Administration Pain Scale 1 - 3 or fever Atorvastatin Calcium 40 mg 09/17/22 22:00 09/17/22 21:16 Atorvastatin 40 Mg Tablet PO 09/17/23 21:59 40 mg HS KWAN Administration Escitalopram Oxalate 10 mg 09/17/22 22:00 09/17/22 21:15 Escitalopram 10 Mg Tablet PO 09/17/23 21:59 10 mg QHS KWAN Administration Metoprolol Tartrate 100 mg 09/17/22 21:00 09/18/22 08:36 Metoprolol Tartrate 100 Mg Tablet PO 09/17/23 20:59 100 mg BID KWAN Administration Multivitamins 1 tab 09/18/22 09:00 09/18/22 08:36 Multivitamin 1 Tab Tablet PO 09/18/23 08:59 1 tab DAILY KWAN Administration Rivaroxaban 15 mg 09/17/22 22:00 09/17/22 21:16 Rivaroxaban 15 Mg Tablet PO 09/17/23 21:59 15 mg HS KWAN Administration Ropinirole HCl 2 mg 09/17/22 21:00 09/17/22 21:15 Ropinirole 2 Mg Tablet PO 09/17/23 20:59 2 mg QPM KWAN Administration Sodium Chloride 0 ml 09/17/22 12:56 09/17/22 14:36 Sodium Chloride 0.9 % 10 Ml Syringe IV-PUSH 09/17/23 12:55 10 ml PRN PRN Administration Flush Sodium Chloride 0 ml 09/17/22 22:00 09/18/22 14:38 Sodium Chloride 0.9 % 10 Ml Syringe IV-PUSH 09/17/23 21:59 10 ml QSHIFT KWAN Administration Spironolactone 12.5 mg 09/18/22 09:00 09/18/22 08:36 Spironolactone 12.5 Mg Tablet PO 09/18/23 08:59 12.5 mg DAILY KWAN Administration A&P - Hospitalist Assessment/Plan (1) Syncope: (2) Left ventricular systolic dysfunction, NYHA class 2: (3) Dyspnea on exertion: (4) Hypertension: (5) Atrial fibrillation with rapid ventricular response: (6) Anticoagulated: Plan Symptomatically the patient is doing fair at the moment. She has ongoing A. fib, relatively rate controlled with ectopy on the monitor. Mildly tachycardic. Appreciate cardiology recommendations. Reported intolerances to amiodarone andTikosyn in the past. Monitor QTC during the initiation of sotalol if this is indeed cardiology's plan. Her ongoing dyspnea and presenting syncopal event seem to be consistent with ongoing CHF, likely exacerbated by A. fib with RVR. Orthostatic vital signs are unremarkable. Carotid ultrasound is negative for any occlusive disease bilaterally. She is anticoagulated as to effectively ruleout PE however we will keep this in the differential going forward if no furtherimprovement in shortness of breath. Suspect if her A. fib is converted to a normal sinus rhythm her symptoms will improve. She appears to take Aldactone 12.5 mg daily at home but not Lasix. Her presenting BNP level of 292 is on the lower side based on previous readings. We will consider starting low-dose Lasixas much of her evidence of fluid overload may be consolidated in her chest and abdominal region rather than peripherally. She has no peripheral edema noted onexam. Appreciate cardiology recommendations. Continue to trend a.m. labs and electrolytes. Monitor on telemetry. Documented By: Sam Dukes DO 09/18/22 17 58 Signed By: <Electronically signed by Sam Dukes DO> 09/18/22 0616 [facility] Work Phone: 1([phone] 746-641801-30-2023 Consult note Author Debbie Mac [facility] September 18, 2022 3:50pm Note Date/Time September 18, 2022 3 :39pm [facility] [address] [place] [address] Cardiology Consult Note Signed Patient: Lesa Golden MR#: [id number] : 1940 Acct:[id number] Age/Sex: 82 / F Adm Date: 3 Loc: Room: [address] [place] [address] Type: ADM IN Attending Dr: Sam Dukes DO Copies to: DO Sam Carias DO Mourhaf A Traboulssi, MD~ Cardiology HPI History of Present Illness Consult Date: 09/18/22 Reason for Consult: Cardiac consultation requested for evaluation of syncope and atrial fibrillation HPI: Ms. Golden is a 82 year old female well-known to me. She was actually just discharged recently from the hospital. She recently presented with recurrent atrial fibrillation. Patient had a history of intolerance to amiodarone in the past. She was started on Tikosyn but unfortunately she developed significant QTC prolongation. I discussed with her treatment option and we chosen heart rate control long-term anticoagulation. Since her discharge the patient continues to complain of palpitation and shortness of breath. Her echocardiogram showed LVEF around 45%. The patient was in charge and experienced a brief syncopal episode. There was no prodromal symptoms. There was no physical injury. There was no incontinence or tongue biting. Patient brought to the hospital. She was adamant atrial fibrillation and slightly elevated heart rate. Other than that and her shortness of breath the patient denies any changes in her cardiac status or symptoms. Patient had an echocardiogram during her last hospitalization which was reviewed. Her previousstress test was 2 years ago back in [place] and was negative Review of Systems Review of Systems All other systems reviewed & are negative unless noted below or in HPI Constitutional Constitutional: Reports system reviewed and no additional complaints, except as documented Eyes Eyes: Reports system reviewed and no additional complaints, except as documented ENT Ears, Nose, Mouth, and Throat: Reports system reviewed and no additional complaints, except as documented Cardiovascular Cardiovascular: Reports system reviewed and no additional complaints, except as documented and Reports dyspnea on exertion Respiratory Respiratory: Reports system reviewed and no additional complaints, except as documented Gastrointestinal Gastrointestinal: Reports system reviewed and no additional complaints, except as documented Musculoskeletal Musculoskeletal: Reports system reviewed and no additional complaints, except asdocumented Integumentary/Breasts Skin/Breast: Reports system reviewed and no additional complaints, except as documented Neurologic Neurologic: Reports system reviewed and no additional complaints, except as documented Psychiatric Psychiatric: Reports system reviewed and no additional complaints, except as documented Endocrine Endocrine: Reports system reviewed and no additional complaints, except as documented Hematologic/Lymphatic Hematologic/Lymphatic: Reports system reviewed and no additional complaints, except as documented PMFSH Vaccinated for COVID-19?: Yes Medical History Atrial fibrillation with RVR Atrial fibrillation, persistent CHF (congestive heart failure) COVID-19 2019 Hernia of abdominal wall Hiatal hernia History of cardiac pacemaker in situ Hyperlipemia Hypertension Kidney stones Pacemaker Presbyesophagus Restless leg Surgical History H/O foot surgery left History of hysterectomy History of tonsillectomy Family History Father Heart & renal disease, hypertensive, with heart fail/chron kidney dis Depression Sister Heart disease Mother Brain tumor Social History Smoking Status: Never smoker Substance Use Type: None Social History Comments: independent living at the [facility] Medications and Allergies Allergies fentanyl Allergy (Verified 09/17/22 12:57) Unknown Reaction Sulfa (Sulfonamide Antibiotics) Adverse Reaction (Mild, Verified 09/17/22 12:57) Itching Home Medications atorvastatin 40 mg tablet 40 mg PO HS 12/14/20 [History Confirmed 09/17/22] escitalopram oxalate 10 mg tablet 10 mg PO QHS 12/14/20 [History Confirmed 09/17/22] multivitamin 1 tab PO DAILY 04/21/21 [History Confirmed 09/17/22] ropinirole 1 mg tablet 1 mg PO QHS 06/30/21 [History Confirmed 09/17/22] rivaroxaban 15 mg tablet (Xarelto) 15 mg PO HS 12/05/21 [History Confirmed 09/17/22] metoprolol tartrate 100 mg tablet 100 mg PO BID 30 days #60 tabs 09/06/22 [Rx Confirmed 09/17/22] spironolactone 25 mg tablet 12.5 mg PO DAILY 30 days #15 tabs 09/06/22 [Rx Confirmed 09/17/22] Exam Physical Exam Vital Signs: Temp Pulse Resp BP Pulse Ox O2 Del Method 97.7 F 95 H 20 128/74 97 Room Air 09/18/22 11:14 09/18/22 11:14 09/18/22 11:14 09/18/22 11:14 09/18/22 11:14 09/18/22 11:14 Const General: cooperative, comfortable, no acute distress and well developed HEENT Head: atraumatic Mouth: oral mucosae normal Eyes General: appearance normal, both eyes and all related structures Pupils: PERRL Neck Neck: normal visual inspection, supple and no lymphadenopathy noted Neck mass: No Thyroid: thyroid normal Carotids: normal carotid upstroke Chest Chest palpation & inspection: normal inspection of the chest Resp Effort & Inspection: normal respiratory effort Auscultation: rhonchi Cardio Palpation: normal PMI Rhythm: abnormal rhythm irregularly irregular Heart Sounds: S1 normal and S2 normal GI Palpation: soft and no hepatosplenomegaly Percussion: normal to percussion Auscultation: normal bowel sounds Skin General: no rashes or lesions noted and dry skin Neuro General: patient alert, patient awake, patient oriented x3, tone normal and moves all extremities Extrem General: full ROM, capillary refill normal and no clubbing, cyanosis or edema Psych Mental Status: mental status grossly normal Results Labs 09/17/22 13:19 09/17/22 13:19 Lab results: Intake and Output 09/17/22 09/18/22 09/18/22 23:59 07:59 15:59 Intake Total 480 / 480 Balance 480 / 480 Intake: Oral 480 / 480 Other: # Unmeasured Voids 1 2 3 # Bowel Movements 1 Weight 72.3 kg 72.1 kg Date of Last Bowel Movement 09/17/22 09/17/22 Patient Weight 09/18/22 23:59 Weight 72.1 kg Lab 09/17/22 13:19 PT 23.4 H INR 2.0 APTT 40.4 H EKG Interpretations EKG Attestation EKG: I reviewed this ECG and interpreted as documented below: (Atrial fibrillation with slightly elevated heart rate and nonspecific ST-T change with occasional paced) A&P - Cardiology (1) Syncope: Qualifiers: Syncope type: unspecified Qualified Code(s): R55 - Syncope and collapse Code(s): R55 - Syncope and collapse Plan Assessment 1. Syncope etiology unclear could be related to her atrial fibrillation 2. Atrial fibrillation difficult to control. She has history of intolerance toamiodarone and recently did not tolerate Tikosyn because of prolonged QTc interval 3. Sick sinus syndrome with permanent pacemaker implantation 4. Shortness of breath with recent documentation of mild LV systolic dysfunction with LVEF around 40% 5. Long-term anticoagulation due to atrial fibrillation 6. Mild chronic kidney disease Plan 1. We will proceed with carotid Doppler and check pacemaker to check for etiology of her syncope 2. I reviewed treatment option with atrial fibrillation unfortunately the patient appears to continue to be symptomatic. She has documented history of intolerance to amiodarone and Tikosyn. The only one that is left is sotalol. Idid explain to her that this may result in prolongation of QTc interval. Patient willing to try. If this failed the only other option down the road would be RF ablation 3. We will discontinue metoprolol and cautiously try sotalol continue to monitor QTc on a daily basis Documented By: Debbie Mac MD 09/18/22 1539 Signed By: <Electronically signed by MD Debbie Mac> 09/18/22 1550 [facility] Work Phone: 1(190) 452-483601-29-2023 History and physical note Author Jay Ceja [facility] September 17, 2022 5:45pm Note Date/Time September 17, 2022 5 :45pm [facility] [address] [place] [address] Hospitalist H&P Signed Patient: Lesa Golden MR#: [id number] : 1940 Acct:[id number] Age/Sex: 82 / F Adm Date: 3 Loc: Room: [address] [place] [address] Type: ADM IN Attending Dr: Jay Ceja DO Copies to: Chester العلي,DO Jay Ceja, DO~ HPI DATE OF EXAMINATION: 09/17/22 CHIEF COMPLAINT: A-Fib with RVR, syncope with collapse today. HISTORY OF PRESENT ILLNESS: I am asked to admit this patient to the hospital on behalf of cardiology with Dr. Mac. This is a very pleasant 82-year-old woman who has had a challenging pa with atrial fibrillation lately. For the last week she has been watching her heart rate at home and it is usually greater than 100 bpm all the time. Per the patient's description it sounds like she has been using a home pulse oximeter tomonitor her heart rate at home. Today she was at [employer] and she was standing upwaiting for her family members to get the car so she can go home and she passed out. She collapsed to the ground. It took about 10 minutes for her to wake up. In the emergency room she demonstrated atrial fibrillation with rapid ventricular response. The ER tried IV Lopressor x2 with no effect on her heart rate. They then gave her an IV Cardizem bolus and a drip which did improve her heart rate. She was recently hospitalized from September 01 to September 06. Cardiology at thattime found that she was intolerant to amiodarone. They tried loading her with Tikosyn. Echocardiogram shows a mildly reduced left ventricular ejection fraction of 40%. However her QTc interval nika higher so Tikosyn was stopped and she was placed on metoprolol for rate control. Seeing her in the room right now her main symptoms are of profound fatigue and dyspnea with any exertion. She was feeling very short of breath and tired with minimal activity at home such as trying to give herself a shower, trying to walkfrom one room to the other, and even putting on her clothes made her feel short of breath. She normally does not feel the specific tachycardia or irregularity or palpitations from the atrial fibrillation. She is not having any fevers or chills or cough or expectorate of any sputum or diaphoresis. She does have fairly severe GERD and esophageal reflux from a known hiatal hernia. On a previous hospital stay I had her work with a dietitian and a speech therapist to learn how to choose the right foods and swallow them correctly and stay upright for at least 1 hour after meals. Patient states that she got a phone call from Dr. Mac's office and they had asked her to come in regarding something to do with her pacemaker. She was supposed to see Dr. Mac tomorrow. Review of Systems Review of Systems Review of systems: 10 systems are reviewed and are negative except as mentioned elsewhere in the documentation. PMFSH Vaccinated for COVID-19?: Yes Medical History Atrial fibrillation with RVR Atrial fibrillation, persistent CHF (congestive heart failure) COVID-19 2019 Hernia of abdominal wall Hiatal hernia History of cardiac pacemaker in situ Hyperlipemia Hypertension Kidney stones Pacemaker Presbyesophagus Restless leg Surgical History H/O foot surgery left History of hysterectomy History of tonsillectomy Family History Father Heart & renal disease, hypertensive, with heart fail/chron kidney dis Depression Sister Heart disease Mother Brain tumor Social History Smoking Status: Never smoker Substance Use Type: None Social History Comments: independent living at the [facility] Medications and Allergies Allergies fentanyl Allergy (Verified 09/17/22 12:57) Unknown Reaction Sulfa (Sulfonamide Antibiotics) Adverse Reaction (Mild, Verified 09/17/22 12:57) Itching Home Medications atorvastatin 40 mg tablet 40 mg PO HS 12/14/20 [History Confirmed 09/17/22] escitalopram oxalate 10 mg tablet 10 mg PO QHS 12/14/20 [History Confirmed 09/17/22] multivitamin 1 tab PO DAILY 04/21/21 [History Confirmed 09/17/22] ropinirole 1 mg tablet 1 mg PO QHS 06/30/21 [History Confirmed 09/17/22] rivaroxaban 15 mg tablet (Xarelto) 15 mg PO HS 12/05/21 [History Confirmed 09/17/22] metoprolol tartrate 100 mg tablet 100 mg PO BID 30 days #60 tabs 09/06/22 [Rx Confirmed 09/17/22] spironolactone 25 mg tablet 12.5 mg PO DAILY 30 days #15 tabs 09/06/22 [Rx Confirmed 09/17/22] Exam Physical Exam Vital Signs: Temp Pulse Resp BP Pulse Ox O2 Del Method 96.2 F L 76 16 123/84 94 L Room Air 09/17/22 16:00 09/17/22 16:00 09/17/22 16:00 09/17/22 16:00 09/17/22 16:00 09/17/22 16:00 Narrative: GEN: Awake, alert, oriented x 3. Head: Normal Cephalic, Atraumatic. Eyes: Conjunctiva and sclera clear bilaterally. Nose: External nose and nares normal bilaterally. Mouth: Lips and tongue normal. Neck: No JVD. No thyromegaly. No lymphadenopathy. Lungs: Clear to auscultation bilaterally, no wheezing, no crackles. Heart: On the monitor right now heart rate ranges between 70 bpm and 100 bpm. On the slower side most of her beats are paced. But then she gets atrial beats that are running faster. My suspicion is that her pacemaker is set at 70 bpm. To auscultation I do not hear any rubs or gallops. Abdomen: Soft, normal bowel sounds, no rigidity, guarding, or acute peritoneal signs. Extremities: No swelling or cords in the calves bilaterally, no edema in the ankles bilaterally. Skin: No systemic rashes or lesions. Psychiatric: Calm. Conversant. Cooperative. Neuro: Awake, Alert, and Oriented x 3. No focal or lateralizing deficits. Results Lab Results Labs: Laboratory Last Values Corrected WBC 8.0 X10E3/uL (3.8-11.6) 09/17/22 13:19 Uncorrected WBC Count 8.0 x10E3/uL (3.8-11.6) 09/17/22 13:19 RBC 4.80 X10E6/uL (3.60-5.00) 09/17/22 13:19 Hgb 14.4 g/dL (11.8-15.4) 09/17/22 13:19 Hct 43.5 % (34.0-46.4) 09/17/22 13:19 MCV 90.6 fl (80-100) 09/17/22 13:19 MCH 30.1 pg (24.7-34.3) 09/17/22 13:19 MCHC 33.2 g/dL (32.0-35.0) 09/17/22 13:19 RDW 13.5 % (11.9-15.3) 09/17/22 13:19 Plt Count 203 x10E3/uL (150-450) 09/17/22 13:19 MPV 9.4 fl (6.3-10.7) 09/17/22 13:19 Neut % (Auto) 73.6 % (.) 09/17/22 13:19 Lymph % (Auto) 15.2 % (.) 09/17/22 13:19 [place] % (Auto) 7.1 % (.) 09/17/22 13:19 Eos % (Auto) 3.5 % (.) 09/17/22 13:19 Baso % (Auto) 0.6 % (.) 09/17/22 13:19 Nucleat RBC Rel Count 0.3 /100 WBC (0-0.5) 09/17/22 13:19 Neut # (Auto) 5.9 x10E3/uL (1.8-7.7) 09/17/22 13:19 Lymph # (Auto) 1.2 x10E3/uL (1.00-4.8) 09/17/22 13:19 [place] # (Auto) 0.6 x10E3/uL (0.0-0.8) 09/17/22 13:19 Eos # (Auto) 0.3 x10E3/uL (0.0-0.45) 09/17/22 13:19 Baso # (Auto) 0.0 x10E3/uL (0.0-0.2) 09/17/22 13:19 Monocyte Dist Width 19.67 % (0.00-20.00) 09/17/22 13:19 PT 23.4 Seconds (9.0-12.9) H 09/17/22 13:19 INR 2.0 09/17/22 13:19 APTT 40.4 Seconds (25.1-36.5) H 09/17/22 13:19 PHA Creatinine Clear N/A 09/17/22 13:19 Sodium 138 mmol/L (136-146) 09/17/22 13:19 Potassium 4.7 mmol/L (3.5-5.1) 09/17/22 13:19 Chloride 103 mmol/L (95-114) 09/17/22 13:19 Carbon Dioxide 25.5 mmol/L (22.0-30.0) 09/17/22 13:19 Anion Gap 14.2 mEq/L (6.0-15.0) 09/17/22 13:19 BUN 24 mg/dL (9-23) H 09/17/22 13:19 Creatinine 1.23 mg/dL (0.44-1.03) H 09/17/22 13:19 Est GFR ( Amer) 51 mL/Min 09/17/22 13:19 Est GFR (Non-Af Amer) 42 mL/Min 09/17/22 13:19 Glucose 94 mg/dL (70-100) 09/17/22 13:19 Calcium 9.4 mg/dL (8.2-10.2) 09/17/22 13:19 Magnesium 2.1 mg/dL (1.6-2.6) 09/17/22 13:19 Total Bilirubin 1.1 mg/dL (0.3-1.2) 09/17/22 13:19 AST 28 U/L (10-42) 09/17/22 13:19 ALT 20 U/L (10-60) 09/17/22 13:19 Alkaline Phosphatase 79 U/L (32-92) 09/17/22 13:19 Troponin I High Sens 8 pg/mL (0-15) 09/17/22 13:19 B-Natriuretic Peptide 292.0 pg/mL (5-100) H 09/17/22 13:19 Total Protein 6.3 gm/dL (6.1-7.9) 09/17/22 13:19 Albumin 4.1 gm/dL (3.2-5.5) 09/17/22 13:19 Globulin 2.2 gm/dL 09/17/22 13:19 Albumin/Globulin Ratio 1.9 09/17/22 13:19 Urine Color Dark yellow (Yellow) A 09/17/22 13:19 Urine Appearance Cloudy (Clear) A 09/17/22 13:19 Urine pH 5.5 (5.0-9.0) 09/17/22 13:19 Ur Specific [place] 1.024 (1.001-1.030) 09/17/22 13:19 Urine Protein Trace mg/dL (Negative) H 09/17/22 13:19 Urine Glucose (UA) Normal mg/dL (Normal) 09/17/22 13:19 Urine Ketones Trace (Negative) H 09/17/22 13:19 Urine Occult Blood Trace (Negative) H 09/17/22 13:19 Urine Nitrite Negative (Negative) 09/17/22 13:19 Urine Bilirubin Negative (Negative) 09/17/22 13:19 Urine Urobilinogen Normal mg/dL (Normal) 09/17/22 13:19 Ur Leukocyte Esterase 3+ (Negative) H 09/17/22 13:19 Urine RBC 10-19 /HPF (0-4) H 09/17/22 13:19 Urine WBC 20-49 /HPF (0-4) H 09/17/22 13:19 Ur Squamous Epith Cells 10-19 /HPF (0-2) H 09/17/22 13:19 Urine Bacteria 3+ (None Seen) H 09/17/22 13:19 Hyaline Casts 3-4 /LPF (0-1) H 09/17/22 13:19 Other Casts None seen /LPF (None Seen) 09/17/22 13:19 Urine Yeast Rare /HPF (None Seen) A 09/17/22 13:19 A&P - Hospitalist Assessment/Plan (1) Syncope: (2) Left ventricular systolic dysfunction, NYHA class 2: (3) Dyspnea on exertion: (4) Hypertension: (5) Atrial fibrillation with rapid ventricular response: (6) Anticoagulated: Plan Assessment: Patient presented after a syncopal event today with loss of consciousness and collapse. Fortunately there was no bodily injury. She was found to be in atrial fibrillation with rapid ventricular response. IV Lopressor boluses were not successful so she was given a bolus of Cardizem IV and then placed on Cardizem drip. Looking through the computer system I do not see any carotid Doppler ultrasound so I will order that to be done. She has a moderately reduced left ventricular ejection fraction on an echocardiogram from September 02 to 2022 when her EF was 40% which was in new change. Plan: Admit to the hospital. Continuous telemetry monitoring. Nursing staff to check orthostatic vital signs 4 times a day. Carotid Doppler ultrasound is ordered. Consult cardiology. Continue Cardizem drip infusion to keep her heart rate under control. Pacemaker interrogation tomorrow. Home medications are continued as they are taken at home including her anticoagulant Xarelto at 15 mg daily. For dysphagia precautions the patient should sit bolt upright in a chair for meals and stay upright in the chair for at least 1 hour after meals. Documented By: Jay Ceja DO [id number] Signed By: <Electronically signed by Jay Ceja DO> 09/17/22 1745 [facility] Work Phone: [phone] Evaluation note* Encounter Date Diagnosis Assessment Notes Treatment Notes Treatment Clinical Notes Aug, Persistent atrial fibrillation (ICD-10 - I48.19) This patient is in NSR or rate controlled. This patient is anticoagulated to prevent thromboembolic events. They are maintaining regular scheduled appts with their window caser. Aug, Chronic heart failure with preserved ejection fraction (ICD-10 - I50.32) Aug, Primary hypertension (ICD-10 - I10) This patient is instructed to consume a healthy, low-fat, low-salt diet. They are also encouraged to continue exercise to achieve/maintain a normal BMI. Aug, Stage 3a chronic kidney disease (ICD-10 - N18.31) The patient is instructed on adequate control of hypertension and diabetes, if appropriate. They are also educated on the associated risks of NSAIDs and PPI use with kidney disease. They were instructed on adequate fluid balance and to avoid dehydration. Aug, STONEY (obstructive sleep apnea) (ICD-10 - G47.33) This patient is aware of the benefits associated with STONEY: With continued use, the patient reduces the risk for NV, CVA, HTN, cardiac dysrhythmias and sudden cardiac deaths.The patient is also aware of the association between STONEY and morning headaches, daytime somnolence, fatigue and obesity, which also has been improved with continued use.The patient is compliant with treatment, wearing the equipment every night for greater than 4 hours.The patient is instructed to continue use of the CPAP for STONEY treatment. Aug, Paraesophageal hernia (ICD-10 - K44.9) Diet instructions, avoid lying flat after meals. Aug, Pulmonary nodule (ICD-10 - R91.1) Lingula, 7mm - 09/2021 Low risk patient, recheck after 12 months Aug, Elevated cholesterol (ICD-10 - E78.00) Diet and exercise with continued statin therapy. Aug, Sick sinus syndrome (ICD-10 - I49.5) PM inserted for symptomatic bradycardia Aug, Renal cyst, right (ICD-10 - N28.1) Benign renal cyst, no surveillance scans necessary Aug, RLS (restless legs syndrome) (ICD-10 - G25.81) Fe supplement, exercise w/ healthy diet. Symptoms tolerable [employer] Other 01-18-2023 Progress note Author Debbie Mac [facility] September 06, 2022 9:57am Note Date/Time September 06, 2022 9 :53am [facility] [address] [place] [address] Cardiology Progress Note Signed Patient: Lesa Golden MR#: [id number] : 1940 Acct:[id number] Age/Sex: 81 / F Adm Date: 3 Loc: 4P Room: [address] [place] [address] Type: ADM IN Attending Dr: Anival Easton MD Copies to: ~ Date of Service: 09/06/2022 Subjective Interval history: EKG yesterday unfortunately demonstrates significant prolongation of QTc interval. Patient received IV magnesium and Tikosyn was discontinued. Currently she is back in atrial fibrillation patient would not be able to tolerateTikosyn Exam Physical Exam Vital Signs: Temp Pulse Resp BP Pulse Ox O2 Del Method 97 F L 92 H 18 141/83 H 94 L Room Air 09/06/22 07:32 09/06/22 07:32 09/06/22 07:32 09/06/22 07:32 09/06/22 07:32 09/06/22 08:00 Const General: cooperative Neck Neck: supple Lymphatic: no lymphadenopathy noted Resp Effort & Inspection: normal respiratory effort Auscultation: clear to auscultation bilaterally Cardio Palpation: normal PMI Rate: regular rate Rhythm: abnormal rhythm irregularly irregular Heart Sounds: S1 normal and S2 normal Skin General: dry skin Extrem General: full ROM and no clubbing, cyanosis or edema Objective Labs 09/05/22 05:23 09/05/22 05:23 A&P - Cardiology (1) Atrial fibrillation with rapid ventricular response: Assessment/Problem Details: Patient had a history of intolerance to amiodarone. And now documented intolerance to Tikosyn due to prolonged QTc interval Code(s): I48.91 - Unspecified atrial fibrillation Status: Acute (2) Dyspnea on exertion: Code(s): R06.09 - Other forms of dyspnea Status: Acute Plan: Control heart rate and diuretic therapy (3) Sick sinus syndrome: Code(s): I49.5 - Sick sinus syndrome Status: Acute Plan: Focus on management of atrial fibrillation (4) HTN (hypertension), benign: Code(s): I10 - Essential (primary) hypertension Status: Acute Plan: Reduce enalapril down to 2.5 mg twice daily (5) Left ventricular systolic dysfunction, NYHA class 2: Code(s): I51.89 - Other ill-defined heart diseases Status: Acute Plan: Continue present heart failure therapy with adjustments based on her blood pressure readings Plan 1. I reviewed with patient treatment option at great length. Unfortunately shehad history of intolerance to amiodarone and now to Tikosyn. Treatment option discussed. I do not believe she is a good candidate for sotalol either. The option would be heart rate control strategy versus consideration for ablation. Following lengthy discussion the patient elected to try heart control strategy. If continue to have symptoms we will consider referral for outpatient ablation. 2. We will increase home dose metoprolol to 100 mg twice daily 3. Patient can be discharged Documented By: Debbie Mac MD 09/06/22 0948 Signed By: <Electronically signed by MD Debbie Mac> 09/06/22 0957 [facility] Work Phone: 1(898) 430-523001-17-2023 Progress note Author Anival Easton [facility] September 05, 2022 6:18pm Note Date/Time September 05, 2022 3 :58pm [facility] [address] [place] [address] Hospitalist Progress Note Signed Patient: Lesa Golden MR#: [id number] : 1940 Acct:[id number] Age/Sex: 81 / F Adm Date: 3 Loc: Room: [address] [place] [address] Type: ADM IN Attending Dr: Anival Easton MD Copies to: ~ Date of Service: 09/05/2022 Subjective Subjective Narrative: Patient is seen and examined. She is resting at the time of my visit. Cardiology has been following with drug loading, converted overnight to sinus rhythm. She denies any dyspnea or chest pain. Aware of plan per cardiology to repeat EKG later today for further disposition Exam Physical Exam Vital Signs: Temp Pulse Resp BP Pulse Ox O2 Del Method 98.0 F 93 H 18 105/70 98 Room Air 09/05/22 12:00 09/05/22 12:00 09/05/22 12:00 09/05/22 12:00 09/05/22 12:00 09/05/22 12:00 Narrative: CONST- alert, in bed, no distress at rest CARD-are RRR no abnormal heart tones, pacemaker present PULM- dimin without wheeze or rhonchi, RA ABD- S/NT, NABS, obese EXTREM- no edema BLE, calves nontender Objective Lab Results 09/05/22 05:23 09/05/22 05:23 Meds Allergies and Active Meds Allergies fentanyl Allergy (Verified 09/01/22 12:00) Unknown Reaction Sulfa (Sulfonamide Antibiotics) Adverse Reaction (Mild, Verified 09/01/22 12:00) Itching Active Meds: Active Medications Generic Name Dose Route Start Last Admin Trade Name Freq PRN Reason Stop Dose Admin Acetaminophen 650 mg 09/01/22 20:29 09/04/22 20:00 Acetaminophen 325 Mg Tablet PO 09/01/23 20:28 650 mg Q6HR PRN Administration Pain Scale 1 - 3 or fever Atorvastatin Calcium 40 mg 09/01/22 22:00 09/04/22 22:37 Atorvastatin 40 Mg Tablet PO 09/01/23 21:59 40 mg HS KWAN Administration Bisacodyl 10 mg 09/01/22 20:29 Bisacodyl 10 Mg Supp.Rect TX 09/01/23 20:28 DAILY PRN Constipation Docusate Sodium 100 mg 09/01/22 21:00 09/05/22 08:51 Docusate 100 Mg Capsule PO 09/01/23 20:59 100 mg BID KWAN Administration Enalapril Maleate 2.5 mg 09/04/22 21:00 09/04/22 20:08 Enalapril Maleate 2.5 Mg Tablet PO 09/04/23 20:59 2.5 mg BID KWAN Administration Magnesium Sulfate 2 gm in 50 mls @ 25 mls/hr 09/01/22 20:29 Magnesium Sulf 2gm-*Swfi* IV 09/01/23 20:28 DAILY PRN Magnesium Level < 1.5 Magnesium Sulfate 2 gm in 50 mls @ 25 mls/hr 09/05/22 14:04 09/05/22 14:27 Magnesium Sulf 2gm-*Swfi* IV 09/05/22 16:03 25 mls/hr ONCE ONE Administration Metoprolol Tartrate 100 mg 09/04/22 21:00 09/05/22 08:51 Metoprolol Tartrate 100 Mg Tablet PO 09/04/23 20:59 100 mg BID KWAN Administration Multivitamins 1 tab 09/02/22 09:00 09/05/22 08:51 Multivitamin 1 Tab Tablet PO 09/02/23 08:59 1 tab DAILY KWAN Administration Potassium Chloride 20 meq 09/01/22 20:29 Potassium Chloride Er 20 Meq Tab.Er.Prt PO 09/01/23 20:28 DAILY PRN Hypokalemia Potassium Chloride 40 meq 09/01/22 20:29 Potassium Chloride Er 20 Meq Tab.Er.Prt PO 09/01/23 20:28 DAILY PRN Hypokalemia Rivaroxaban 15 mg 09/01/22 22:00 09/04/22 22:37 Rivaroxaban 15 Mg Tablet PO 09/01/23 21:59 15 mg HS KWAN Administration Ropinirole HCl 1 mg 09/01/22 22:00 09/04/22 22:37 Ropinirole 1 Mg Tablet PO 09/01/23 21:59 1 mg QHS KWAN Administration Sodium Chloride 0 ml 09/01/22 11:59 09/05/22 14:27 Sodium Chloride 0.9 % 10 Ml Syringe IV-PUSH 09/01/23 11:58 30 ml PRN PRN Administration Flush Spironolactone 12.5 mg 09/03/22 18:00 09/05/22 08:51 Spironolactone 12.5 Mg Tablet PO 09/03/23 17:59 12.5 mg DAILY KWAN Administration A&P - Hospitalist Assessment/Plan (1) Atrial fibrillation with rapid ventricular response: (2) CHF (congestive heart failure): (3) Dysphagia: (4) Weakness: (5) Dyspnea on exertion: (6) Hypertension: Plan A. fib RVR, rate controlled Chronic anticoagulation -Cardiology consultation Appreciated, dofetilide loading and metoprolol, rivaroxaban -EF 40% -CTA chest no PE -Follow-up EKG pending 2 PM today for further disposition Chronic conditions 1. Hypertension, HFrEF?enalapril, spironolactone 2. Dysphagia?speech therapy, postrepair paraesophageal hiatal hernia [place] 2016 Attending attestation: Patient was personally seen by me on the day of encounter. I reviewed her history and performed shea elements of exam and formulated the plan of care and confirmed the FAN RUNNER's note above. Plan of care reflects my direct input Documented By: MELY Jacob 3 [id number] Signed By: <Electronically signed by MELY Haro> 09/05/22 1722 <Electronically signed by Anival Easton MD> 09/05/22 1811 [facility] Work Phone: 1(882) 741-768101-17-2023 Progress note Author [facility] 05, [facility]22 12:06pm Note Date/Time September 05, 2022 1 2:06pm [facility] [address] [place] [address] Cardiology Progress Note Signed Patient: Lesa Golden MR#: [id number] : 1940 Acct:[id number] Age/Sex: 81 / F Adm Date: 3 Loc: Room: [address] [place] [address] Type: ADM IN Attending Dr: Anival Easton MD Copies to: ~ Date of Service: 09/05/2022 Subjective Principal diagnosis: Dyspnea/atrial fibrillation with RVR Interval history: Patient in normal sinus rhythm. No new complaint. QTc interval is 470 ms Exam Physical Exam Vital Signs: Temp Pulse Resp BP Pulse Ox O2 Del Method 97.2 F L 86 16 108/70 95 Room Air 09/05/22 08:00 09/05/22 08:00 09/05/22 08:00 09/05/22 08:00 09/05/22 08:00 09/05/22 08:00 Const General: cooperative Neck Neck: supple Lymphatic: no lymphadenopathy noted Resp Effort & Inspection: normal respiratory effort Auscultation: clear to auscultation bilaterally Cardio Palpation: normal PMI Rate: regular rate Rhythm: regular rhythm Heart Sounds: S1 normal and S2 normal Skin General: dry skin Extrem General: full ROM and no clubbing, cyanosis or edema Objective Labs 09/05/22 05:23 09/05/22 05:23 Labs: Laboratory Results - last 24 hr 09/05/22 09/05/22 05:23 05:23 Corrected WBC 5.6 Uncorrected WBC Count 5.6 RBC 4.70 Hgb 14.0 Hct 42.4 MCV 90.2 MCH 29.7 MCHC 32.9 RDW 13.8 Plt Count 190 MPV 9.2 Neut % (Auto) 59.1 Lymph % (Auto) 25.6 [place] % (Auto) 9.7 Eos % (Auto) 4.7 Baso % (Auto) 0.9 Nucleat RBC Rel Count 0.2 Neut # (Auto) 3.3 Lymph # (Auto) 1.4 [place] # (Auto) 0.5 Eos # (Auto) 0.3 Baso # (Auto) 0.0 PHA Creatinine Clear 24.80 Sodium 140 Potassium 4.0 Chloride 105 Carbon Dioxide 27.5 Anion Gap 11.5 BUN 29 H Creatinine 1.57 H Est GFR ( Amer) 38 Est GFR (Non-Af Amer) 32 Glucose 103 H Calcium 8.9 A&P - Cardiology (1) Atrial fibrillation with rapid ventricular response: Code(s): I48.91 - Unspecified atrial fibrillation Status: Acute Plan: Continue drug loading with dofetilide and continue beta-leland therapy and reduce dofetilide due to QT prolongation (2) Dyspnea on exertion: Code(s): R06.09 - Other forms of dyspnea Status: Acute Plan: Control heart rate and diuretic therapy (3) Sick sinus syndrome: Code(s): I49.5 - Sick sinus syndrome Status: Acute Plan: Focus on management of atrial fibrillation (4) HTN (hypertension), benign: Code(s): I10 - Essential (primary) hypertension Status: Acute Plan: Reduce enalapril down to 2.5 mg twice daily (5) Left ventricular systolic dysfunction, NYHA class 2: Code(s): I51.89 - Other ill-defined heart diseases Status: Acute Plan: Continue present heart failure therapy with adjustments based on her blood pressure readings Plan 1. Patient back in normal sinus rhythm. QTc interval is 470 ms after fifth dose. We will recheck EKG around 2:00 if QTc interval remains acceptable she can be discharged home later on today Documented By: Debbie Mac MD 09/05/22 1205 Signed By: <Electronically signed by MD Debbie Mac> 09/05/22 1201 [facility] Work Phone: [phone] 547-864901-17-2023 Progress note Author Anival Easton [facility] September 05, 2022 8:27am Note Date/Time September 04, 2022 2 :47pm [facility] [address] [place] [address] Hospitalist Progress Note Signed Patient: Lesa Golden MR#: [id number] : 1940 Acct:[id number] Age/Sex: 81 / F Adm Date: 3 Loc: Room: [address] [place] [address] Type: ADM IN Attending Dr: Anival Easton MD Copies to: ~ Date of Service: 09/04/2022 Subjective Subjective Narrative: Patient is seen and examined. She has 3 sisters present bedside. She also got results of imaging. Did discuss CT head that was done for reported hallucinations which she says has resolved. Indicates she still has some dyspnea with exertion. Heart rate remains in the 1 teens currently. Denies chest pain. Exam Physical Exam Vital Signs: Temp Pulse Resp BP Pulse Ox O2 Del Method 97.6 F 106 H 18 101/63 94 L Room Air 09/04/22 12:00 09/04/22 12:00 09/04/22 12:00 09/04/22 12:00 09/04/22 12:00 09/04/22 12:00 Narrative: CONST- alert, in bed, no distress at rest CARD-irregular no abnormal heart tones, pacemaker present PULM- dimin without wheeze or rhonchi, RA ABD- S/NT, NABS, obese EXTREM- no edema BLE, calves nontender Objective Lab Results 09/04/22 05:07 09/04/22 05:07 Meds Allergies and Active Meds Allergies fentanyl Allergy (Verified 09/01/22 12:00) Unknown Reaction Sulfa (Sulfonamide Antibiotics) Adverse Reaction (Mild, Verified 09/01/22 12:00) Itching Active Meds: Active Medications Generic Name Dose Route Start Last Admin Trade Name Freq PRN Reason Stop Dose Admin Acetaminophen 650 mg 09/01/22 20:29 09/03/22 21:16 Acetaminophen 325 Mg Tablet PO 09/01/23 20:28 650 mg Q6HR PRN Administration Pain Scale 1 - 3 or fever Atorvastatin Calcium 40 mg 09/01/22 22:00 09/03/22 21:16 Atorvastatin 40 Mg Tablet PO 09/01/23 21:59 40 mg HS KWAN Administration Bisacodyl 10 mg 09/01/22 20:29 Bisacodyl 10 Mg Supp.Rect TX 09/01/23 20:28 DAILY PRN Constipation Docusate Sodium 100 mg 09/01/22 21:00 09/04/22 10:35 Docusate 100 Mg Capsule PO 09/01/23 20:59 Not Given BID KWAN Dofetilide 125 mcg 09/04/22 21:00 Dofetilide 125 Mcg Capsule PO 09/04/23 20:59 BID KWAN Enalapril Maleate 2.5 mg 09/04/22 21:00 Enalapril Maleate 2.5 Mg Tablet PO 09/04/23 20:59 BID KWAN Magnesium Sulfate 2 gm in 50 mls @ 25 mls/hr 09/01/22 20:29 Magnesium Sulf 2gm-*Swfi* IV 09/01/23 20:28 DAILY PRN Magnesium Level < 1.5 Metoprolol Tartrate 100 mg 09/04/22 21:00 Metoprolol Tartrate 100 Mg Tablet PO 09/04/23 20:59 BID [facility] Multivitamins 1 tab 09/02/22 09:00 09/04/22 10:00 Multivitamin 1 Tab Tablet PO 09/02/23 08:59 1 tab DAILY KWAN Administration Potassium Chloride 20 meq 09/01/22 20:29 Potassium Chloride Er 20 Meq Tab.Er.Prt PO 09/01/23 20:28 DAILY PRN Hypokalemia Potassium Chloride 40 meq 09/01/22 20:29 Potassium Chloride Er 20 Meq Tab.Er.Prt PO 09/01/23 20:28 DAILY PRN Hypokalemia Rivaroxaban 15 mg 09/01/22 22:00 09/03/22 21:16 Rivaroxaban 15 Mg Tablet PO 09/01/23 21:59 15 mg HS KWAN Administration Ropinirole HCl 1 mg 09/01/22 22:00 09/03/22 21:16 Ropinirole 1 Mg Tablet PO 09/01/23 21:59 1 mg QHS KWAN Administration Sodium Chloride 0 ml 09/01/22 11:59 09/03/22 10:36 Sodium Chloride 0.9 % 10 Ml Syringe IV-PUSH 09/01/23 11:58 10 ml PRN PRN Administration Flush Spironolactone 12.5 mg 09/03/22 18:00 09/04/22 10:00 Spironolactone 12.5 Mg Tablet PO 09/03/23 17:59 12.5 mg DAILY KWAN Administration A&P - Hospitalist Assessment/Plan (1) Atrial fibrillation with rapid ventricular response: (2) CHF (congestive heart failure): (3) Dysphagia: (4) Weakness: (5) Dyspnea on exertion: (6) Hypertension: Plan A. fib RVR Chronic anticoagulation -Cardiology consultation Appreciated, dofetilide loading and metoprolol, rivaroxaban -EF 40% -CTA chest no PE Chronic conditions 1. Hypertension, HFrEF?enalapril, spironolactone 2. Dysphagia?speech therapy, postrepair paraesophageal hiatal hernia [place] 2016 Attending attestation: Patient was personally seen by me on the day of encounter. I reviewed her history and performed shea elements of exam and formulated the plan of care and confirmed the nurse practitioner's note above. Documented By: MELY Jacob 3 [id number] Signed By: <Electronically signed by RAY-ABI Haro> 09/04/221927 <Electronically signed by Anival Easton MD> 09/05/22 0827 [facility] Work Phone: 1([phone] 431-435401-16-2023 Progress note Author Jimena Smith [facility] September 04, 2022 11:32am Note Date/Time September 04, 2022 1 1:32am [facility] [address] [place] [address] Cardiology Progress Note Signed Patient: Lesa Golden MR#: [id number] : 1940 Acct:[id number] Age/Sex: 81 / F Adm Date: 3 Loc: Room: [address] [place] [address] Type: ADM IN Attending Dr: Anival Easton MD Copies to: ~ Date of Service: 09/04/2022 Subjective Principal diagnosis: Dyspnea/atrial fibrillation with RVR Interval history: Ms. Golden is feeling tired today. Heart rate is better controlled. Blood pressure is on the lower side QTc interval has lengthened over 500 ms. We will reduce dofetilide down to 125 mcg twice daily, will repeat EKG in evening for next dose continue Xarelto 15 mg daily. Increase beta-leland therapy. Reducedenalapril due to soft blood pressure readings Exam Physical Exam Vital Signs: Temp Pulse Resp BP Pulse Ox O2 Del Method 98.1 F 117 H 20 79/65 L 98 Room Air 09/04/22 08:00 09/04/22 08:00 09/04/22 08:00 09/04/22 08:00 09/04/22 08:00 09/04/22 09:55 Const General: cooperative, comfortable, no acute distress and anxious Nutritional Appearance: average body habitus Orientation: alert, awake and oriented x3 HEENT Head: normal to inspection and atraumatic Ears: hearing grossly normal bilaterally Nose: external nose normal Face and sinus: normal facial exam Eyes General: appearance normal, both eyes and all related structures Conjunctivae: conjunctivae normal Pupils: PERRL Neck Neck: normal visual inspection, full ROM, no lymphadenopathy, trachea midline and supple Neck mass: No Thyroid: thyroid normal Carotids: normal carotid upstroke Resp Effort & Inspection: normal respiratory effort Auscultation: crackles Cardio Jugular venous pressure: no JVD Palpation: normal PMI Rate: regular rate Rhythm: abnormal rhythm irregularly irregular Heart Sounds: S1 normal and S2 normal GI Inspection: normal to inspection Palpation: soft and no hepatosplenomegaly Auscultation: normal bowel sounds Extrem General: no clubbing, cyanosis or edema Objective Labs 09/04/22 05:07 09/04/22 05:07 Labs: Laboratory Results - last 24 hr 09/04/22 09/04/22 05:07 05:07 Corrected WBC 6.7 Uncorrected WBC Count 6.7 RBC 4.88 Hgb 14.6 Hct 44.0 MCV 90.3 MCH 29.9 MCHC 33.1 RDW 14.0 Plt Count 194 MPV 9.4 Neut % (Auto) 64.7 Lymph % (Auto) 22.7 [place] % (Auto) 7.6 Eos % (Auto) 4.3 Baso % (Auto) 0.7 Nucleat RBC Rel Count 0.2 Neut # (Auto) 4.3 Lymph # (Auto) 1.5 [place] # (Auto) 0.5 Eos # (Auto) 0.3 Baso # (Auto) 0.0 PHA Creatinine Clear 28.65 Sodium 139 Potassium 3.4 L Chloride 105 Carbon Dioxide 23.5 Anion Gap 13.9 BUN 23 Creatinine 1.41 H Est GFR ( Amer) 44 Est GFR (Non-Af Amer) 36 Glucose 95 Calcium 8.8 A&P - Cardiology (1) Atrial fibrillation with rapid ventricular response: Assessment/Problem Details: Heart rate is under better control Code(s): I48.91 - Unspecified atrial fibrillation Status: Acute Plan: Continue drug loading with dofetilide and continue beta-leland therapy and reduce dofetilide due to QT prolongation (2) Dyspnea on exertion: Assessment/Problem Details: Due to left ventricular systolic dysfunction Code(s): R06.09 - Other forms of dyspnea Status: Acute Plan: Control heart rate and diuretic therapy (3) Sick sinus syndrome: Assessment/Problem Details: Status post pacemaker insertion Code(s): I49.5 - Sick sinus syndrome Status: Acute Plan: Focus on management of atrial fibrillation (4) HTN (hypertension), benign: Assessment/Problem Details: Presently blood pressure is on the soft side Code(s): I10 - Essential (primary) hypertension Status: Acute Plan: Reduce enalapril down to 2.5 mg twice daily (5) Left ventricular systolic dysfunction, NYHA class 2: Assessment/Problem Details: Presently with no evidence of volume overload Code(s): I51.89 - Other ill-defined heart diseases Status: Acute Plan: Continue present heart failure therapy with adjustments based on her blood pressure readings Documented By: Jimena Smith MD, [facility] 3 1129 Signed By: <Electronically signed by [facility] Jimena Smith> 09/04/22 1132 [facility] Work Phone: [phone]) 824-619501-15-2023 Progress note Author Jay Ceja [facility] September 03, 2022 1:12pm Note Date/Time September 03, 2022 1 :12pm [facility] [address] [place] [address] Hospitalist Progress Note Signed Patient: Lesa Golden MR#: [id number] : 1940 Acct:[id number] Age/Sex: 81 / F Adm Date: 3 Loc: Room: [address] [place] [address] Type: ADM IN Attending Dr: Jay Ceja DO Copies to: ~ Date of Service: 09/03/2022 Subjective Subjective Narrative: Today the patient states that her shortness of breath is much improved. Her main complaint continues to be of throwing up and it seems like she did not tolerate breakfast or lunch. No fevers or chills. No arthralgias or myalgias. No chest pain or palpitations. Exam Physical Exam Vital Signs: Temp Pulse Resp BP Pulse Ox O2 Del Method 97.4 F L 88 18 112/64 93 L Room Air 09/03/22 08:00 09/03/22 08:00 09/03/22 08:00 09/03/22 08:00 09/03/22 08:00 09/03/22 08:00 Narrative: Lungs: Nicely clear to auscultation throughout today. No wheezing. No cough. Heart: To auscultation heart sounds are somewhat distant. I do not hear rubs or gallops. On the monitor her atrial fibrillation is under much better rate control, typically at 90 bpm. Sometimes ventricularly paced. Abdomen: Soft, normal bowel sounds, no rigidity, guarding, or acute peritoneal signs. Extremities: No swelling or cords in the calves bilaterally, no edema whatsoever in the lower extremities. Skin: No systemic rashes or lesions. Objective Lab Results 09/03/22 07:41 09/03/22 07:41 Microbiology Results Microbiology 09/01/22 13:32 Urine - Clean-Voided Midstream Urine Culture - Final 50,000 colonies/ml mixed bacterial skin contaminants 2 Days Meds Allergies and Active Meds Allergies fentanyl Allergy (Verified 09/01/22 12:00) Unknown Reaction Sulfa (Sulfonamide Antibiotics) Adverse Reaction (Mild, Verified 09/01/22 12:00) Itching Active Meds: Active Medications Generic Name Dose Route Start Last Admin Trade Name Freq PRN Reason Stop Dose Admin Acetaminophen 650 mg 09/01/22 20:29 09/02/22 21:05 Acetaminophen 325 Mg Tablet PO 09/01/23 20:28 650 mg Q6HR PRN Administration Pain Scale 1 - 3 or fever Atorvastatin Calcium 40 mg 09/01/22 22:00 09/02/22 21:01 Atorvastatin 40 Mg Tablet PO 09/01/23 21:59 40 mg HS KWAN Administration Bisacodyl 10 mg 09/01/22 20:29 Bisacodyl 10 Mg Supp.Rect TX 09/01/23 20:28 DAILY PRN Constipation Bisacodyl 10 mg 09/01/22 20:29 Bisacodyl 5 Mg Tablet.Dr PO 09/01/23 20:28 DAILY PRN Constipation Docusate Sodium 100 mg 09/01/22 21:00 09/03/22 10:36 Docusate 100 Mg Capsule PO 09/01/23 20:59 Not Given BID KWAN Dofetilide 250 mcg 09/02/22 21:00 09/03/22 10:35 Dofetilide 250 Mcg Capsule PO 09/02/23 20:59 250 mcg BID KWAN Administration Enalapril Maleate 5 mg 09/03/22 21:00 Enalapril Maleate 5 Mg Tablet PO 09/03/23 20:59 BID KWAN Magnesium Sulfate 2 gm in 50 mls @ 25 mls/hr 09/01/22 20:29 Magnesium Sulf 2gm-*Swfi* IV 09/01/23 20:28 DAILY PRN Magnesium Level < 1.5 Metoprolol Tartrate 75 mg 09/01/22 21:00 09/03/22 10:35 Metoprolol Tartrate 37.5 Mg Tablet PO 09/01/23 20:59 75 mg BID KWAN Administration Multivitamins 1 tab 09/02/22 09:00 09/03/22 10:35 Multivitamin 1 Tab Tablet PO 09/02/23 08:59 1 tab DAILY KWAN Administration Potassium Chloride 20 meq 09/01/22 20:29 Potassium Chloride Er 20 Meq Tab.Er.Prt PO 09/01/23 20:28 DAILY PRN Hypokalemia Potassium Chloride 40 meq 09/01/22 20:29 Potassium Chloride Er 20 Meq Tab.Er.Prt PO 09/01/23 20:28 DAILY PRN Hypokalemia Rivaroxaban 15 mg 09/01/22 22:00 09/02/22 21:01 Rivaroxaban 15 Mg Tablet PO 09/01/23 21:59 15 mg HS KWAN Administration Ropinirole HCl 1 mg 09/01/22 22:00 09/02/22 21:01 Ropinirole 1 Mg Tablet PO 09/01/23 21:59 1 mg QHS KWAN Administration Sodium Chloride 0 ml 09/01/22 11:59 09/03/22 10:36 Sodium Chloride 0.9 % 10 Ml Syringe IV-PUSH 09/01/23 11:58 10 ml PRN PRN Administration Flush Spironolactone 12.5 mg 09/03/22 18:00 Spironolactone 12.5 Mg Tablet PO 09/03/23 17:59 DAILY KWAN A&P - Hospitalist Assessment/Plan (1) Atrial fibrillation with rapid ventricular response: (2) CHF (congestive heart failure): (3) Dysphagia: (4) Weakness: (5) Dyspnea on exertion: (6) Hypertension: Plan Assessment: Presentation with profound dyspnea and dyspnea on exertion with a finding of atrial fibrillation with rapid ventricular response. Echocardiogram showing left ventricular ejection fraction 40%. In-hospital problems with difficulty swallowing food, chronic dysphagia problemsafter repair of a paraesophageal hiatal hernia [facility] and 2016. High-resolution CT scan of the chest does not show any specific pulmonary pathology. Plan: Cardiology has initiated dofetilide. Maintain telemetry monitoring. Start Lasix 40 mg IV twice daily and transition it to 20 mg p.o. daily. Continue anticoagulation with Xarelto that she uses at home. Heart healthy diet. Consult to speech therapy and also dietitian for appropriate dysphagia diet after bedside swallow evaluation. Documented By: Jay Ceja DO [id number] Signed By: <Electronically signed by Jay Ceja DO> 09/03/22 1312 [facility] Work Phone: [phone]) 113-829101-15-2023 Progress note Author Jmiena Smith [facility] September 03, 2022 12:24pm Note Date/Time September 03, 2022 1 2:21pm [facility] [address] [place] [address] Cardiology Progress Note Signed Patient: Lesa Golden MR#: [id number] : 1940 Acct:[id number] Age/Sex: 81 / F Adm Date: 3 Loc: Room: [address] [place] [address] Type: ADM IN Attending Dr: Jay Ceja DO Copies to: ~ Date of Service: 09/03/2022 Subjective Principal diagnosis: Dyspnea/atrial fibrillation with RVR Interval history: Ms. Golden is feeling better. Heart rate is better controlled. Tolerated Tikosyn with QTc interval in the therapeutic range. We will continue to monitoron drug loading with dofetilide. Continue Xarelto 15 mg daily. Continue beta-leland therapy. Exam Physical Exam Vital Signs: Temp Pulse Resp BP Pulse Ox O2 Del Method 97.4 F L 88 18 112/64 93 L Room Air 09/03/22 08:00 09/03/22 08:00 09/03/22 08:00 09/03/22 08:00 09/03/22 08:00 09/03/22 08:00 Const General: cooperative, comfortable, no acute distress and anxious Nutritional Appearance: average body habitus Orientation: alert, awake and oriented x3 HEENT Head: normal to inspection and atraumatic Ears: hearing grossly normal bilaterally Nose: external nose normal Face and sinus: normal facial exam Eyes General: appearance normal, both eyes and all related structures Conjunctivae: conjunctivae normal Pupils: PERRL Neck Neck: normal visual inspection, full ROM, no lymphadenopathy, trachea midline and supple Neck mass: No Thyroid: thyroid normal Carotids: normal carotid upstroke Resp Effort & Inspection: normal respiratory effort Auscultation: crackles Cardio Jugular venous pressure: no JVD Palpation: normal PMI Rate: regular rate Rhythm: abnormal rhythm irregularly irregular Heart Sounds: S1 normal and S2 normal GI Inspection: normal to inspection Palpation: soft and no hepatosplenomegaly Auscultation: normal bowel sounds Extrem General: no clubbing, cyanosis or edema Objective Labs 09/03/22 07:41 09/03/22 07:41 Labs: Laboratory Results - last 24 hr 09/03/22 09/03/22 07:41 07:41 Corrected WBC 7.3 Uncorrected WBC Count 7.3 RBC 5.13 H Hgb 15.3 Hct 46.8 H MCV 91.3 MCH 29.9 MCHC 32.8 RDW 14.2 Plt Count 176 MPV 9.1 Neut % (Auto) 68.3 Lymph % (Auto) 19.1 [place] % (Auto) 8.2 Eos % (Auto) 3.9 Baso % (Auto) 0.5 Nucleat RBC Rel Count 0.2 Neut # (Auto) 5.0 Lymph # (Auto) 1.4 [place] # (Auto) 0.6 Eos # (Auto) 0.3 Baso # (Auto) 0.0 PHA Creatinine Clear 32.16 Sodium 138 Potassium 3.7 Chloride 103 Carbon Dioxide 19.8 L Anion Gap 18.9 H BUN 21 Creatinine 1.25 H Est GFR ( Amer) 50 Est GFR (Non-Af Amer) 41 Glucose 114 H Calcium 8.9 A&P - Cardiology (1) Atrial fibrillation with rapid ventricular response: Assessment/Problem Details: Remains in atrial fibrillation but with controlled rate. Code(s): I48.91 - Unspecified atrial fibrillation Status: Acute Plan: Continue drug loading with dofetilide and continue beta-leland therapy and reduced dose Xarelto. (2) Dyspnea on exertion: Assessment/Problem Details: Mostly related to atrial fibrillation with RVR along with left ventricular systolic dysfunction ejection fraction 40%. Code(s): R06.09 - Other forms of dyspnea Status: Acute Plan: Control heart rate and diuretic therapy and maintaining adequate blood pressure control. (3) Sick sinus syndrome: Assessment/Problem Details: Patient has a pacemaker in place which is functioning properly. Code(s): I49.5 - Sick sinus syndrome Status: Acute Plan: Focus on management of atrial fibrillation (4) HTN (hypertension), benign: Assessment/Problem Details: Currently under control Code(s): I10 - Essential (primary) hypertension Status: Acute Plan: Continue home medications (5) Left ventricular systolic dysfunction, NYHA class 2: Assessment/Problem Details: Ejection fraction 40% likely due to atrial fibrillation with RVR Code(s): I51.89 - Other ill-defined heart diseases Status: Acute Plan: Controlled heart rate, start enalapril 5 mg twice daily and continue beta- leland therapy, add spironolactone Documented By: Jimena Smith MD, [facility] 3 1220 Signed By: <Electronically signed by [facility]ie Smith> 09/03/22 1224 [facility] Work Phone: [phone] 706-698501-14-2023 Consult note Author Jimena Smith [facility] September 02, 2022 2:58pm Note Date/Time September 02, 2022 2 :53pm [facility] [address] [place] [address] Cardiology Consult Note Signed Patient: Lesa Golden MR#: [id number] : 1940 Acct:[id number] Age/Sex: 81 / F Adm Date: 3 Loc: Room: [address] [place] [address] Type: ADM IN Attending Dr: Jay Ceja DO Copies to: DO Jimena Carias MD, [facility] Jay Ceja DO~ Cardiology HPI History of Present Illness Consult Date: 09/02/22 Reason for Consult: Atrial fibrillation with RVR HPI: Ms. Golden is a 81 year old female who is being seen at request of the hospitalist for management of atrial fibrillation with RVR leading to progressive dyspnea. Patient follows with Dr. Mac for paroxysmal atrial fibrillation. For a while she was on amiodarone which due to potential toxicitywas eliminated. She has been only on rate control with metoprolol and anticoagulation with Xarelto. Patient has no previous history of heart failure or coronary artery disease and had no previous strokes or bleeding complications. Lately she has developed progressive dyspnea. She was evaluatedin the office with an EKG recently and was found to be tachycardic for which beta-leland therapy dose was increased. That apparently did not help the patient's situation and came in because of this. She did not have any evidence of acute coronary syndrome with normal troponin level. BNP was elevated. Echocardiogram revealed low normal ejection fraction at 50-55%. No significant valvular disease is noted. Her x-ray did not show any significant infiltrates or effusions. Slight increased vascular markings were noted. Patient has a pacemaker last year for sick sinus syndrome which has been functioning properly. She denies any recent febrile illnesses and denies any orthopnea or PND and minimal lower extremity edema. She has no palpitations and cannot feel her atrial fibrillation. She has been compliant medical therapy. Review of Systems Review of Systems Review of systems: Other review of system beyond what I covered above in HPI was unremarkable PMFSH Vaccinated for COVID-19?: No Medical History (Updated 09/01/22 @ 20:27 by Jay Ceja DO) Atrial fibrillation with RVR Atrial fibrillation, persistent CHF (congestive heart failure) COVID-19 2019 Hernia of abdominal wall Hiatal hernia History of cardiac pacemaker in situ Hyperlipemia Hypertension Kidney stones Pacemaker Presbyesophagus Restless leg Surgical History H/O foot surgery left History of hysterectomy History of tonsillectomy Family History Father Heart & renal disease, hypertensive, with heart fail/chron kidney dis Depression Sister Heart disease Mother Brain tumor Social History Smoking Status: Never smoker Substance Use Type: None Social History Comments: independent living at the [facility] Medications and Allergies Allergies fentanyl Allergy (Verified 09/01/22 12:00) Unknown Reaction Sulfa (Sulfonamide Antibiotics) Adverse Reaction (Mild, Verified 09/01/22 12:00) Itching Home Medications atorvastatin 40 mg tablet 40 mg PO HS 12/14/20 [History Confirmed 09/01/22] escitalopram oxalate 10 mg tablet 10 mg PO QHS 12/14/20 [History Confirmed 09/01/22] multivitamin 1 tab PO DAILY 04/21/21 [History Confirmed 09/01/22] ropinirole 1 mg tablet 1 mg PO QHS 06/30/21 [History Confirmed 09/01/22] rivaroxaban 15 mg tablet (Xarelto) 15 mg PO HS 12/05/21 [History Confirmed 09/01/22] metoprolol tartrate 50 mg tablet 75 mg PO BID 09/01/22 [History Confirmed 09/01/22] Exam Physical Exam Vital Signs: Temp Pulse Resp BP Pulse Ox O2 Del Method 97.9 F 97 H 17 105/73 97 Room Air 09/02/22 08:00 09/02/22 12:00 09/02/22 12:00 09/02/22 12:00 09/02/22 12:00 09/02/22 12:00 Const General: cooperative, comfortable, no acute distress and anxious Nutritional Appearance: average body habitus Orientation: alert, awake and oriented x3 HEENT Head: normal to inspection and atraumatic Ears: hearing grossly normal bilaterally Nose: external nose normal Face and sinus: normal facial exam Eyes General: appearance normal, both eyes and all related structures Conjunctivae: conjunctivae normal Pupils: PERRL Neck Neck: normal visual inspection, full ROM, no lymphadenopathy, trachea midline and supple Neck mass: No Thyroid: thyroid normal Carotids: normal carotid upstroke Resp Effort & Inspection: normal respiratory effort Auscultation: crackles Cardio Jugular venous pressure: no JVD Palpation: normal PMI Rate: regular rate Rhythm: abnormal rhythm irregularly irregular Heart Sounds: S1 normal and S2 normal GI Inspection: normal to inspection Palpation: soft and no hepatosplenomegaly Auscultation: normal bowel sounds Extrem General: no clubbing, cyanosis or edema Results Labs 09/02/22 08:16 09/02/22 08:16 Lab results: Cardiac Enzymes 09/02/22 Range/Units 08:16 B-Natriuretic Peptide 307.0 H (5-100) pg/mL CBC 09/02/22 Range/Units 08:16 RBC 4.97 (3.60-5.00) X10E6/uL Hgb 14.7 (11.8-15.4) g/dL Hct 45.0 (34.0-46.4) % Plt Count 179 (150-450) x10E3/uL Neut # (Auto) 4.5 (1.8-7.7) x10E3/uL Lymph # (Auto) 1.6 (1.00-4.8) x10E3/uL [place] # (Auto) 0.5 (0.0-0.8) x10E3/uL Eos # (Auto) 0.2 (0.0-0.45) x10E3/uL Baso # (Auto) 0.0 (0.0-0.2) x10E3/uL Comprehensive Metabolic Panel 09/02/22 Range/Units 08:16 Sodium 137 (136-146) mmol/L Potassium 3.6 (3.5-5.1) mmol/L Chloride 102 (95-114) mmol/L Carbon Dioxide 24.1 (22.0-30.0) mmol/L BUN 19 (9-23) mg/dL Creatinine 1.16 H (0.44-1.03) mg/dL Glucose 94 (70-100) mg/dL Calcium 8.9 (8.2-10.2) mg/dL Intake and Output 09/01/22 09/02/22 09/02/22 23:59 07:59 15:59 Intake Total 300 / 300 300 / 500 200 / 500 Balance 300 / 300 300 / 500 200 / 500 Intake: IV 300 / 300 200 / 400 200 / 400 Amiodarone 150Mg-*D5w* 150 mg 100 / 100 In 100 ml @ 600 mls/hr IV [facility] Rx#:[id number] Amiodarone 360Mg-*D5w* 360 mg 200 / 200 200 / 400 200 / 400 In 200 ml @ 1 MG/MIN 33.333 mls /hr IV .Q6H [facility] Rx#:[id number] Oral 100 / 100 Other: # Voids 3 # Unmeasured Voids 2 4 Weight 53.4 kg Date of Last Bowel Movement 09/01/22 09/01/22 Patient Weight 09/02/22 23:59 Weight 53.4 kg A&P - Cardiology (1) Atrial fibrillation with rapid ventricular response: Assessment/Problem Details: Patient has not been on antiarrhythmic therapy. IV amiodarone was initiated during the admission which I will discontinue. Ejection fraction is near normal. Plan: Discontinue IV amiodarone and start dofetilide 250 mcg twice daily along with Xarelto 15 mg daily with daily EKG monitoring. Cardioversion could follow if necessary next week. Code(s): I48.91 - Unspecified atrial fibrillation (2) Dyspnea on exertion: Assessment/Problem Details: This is likely caused by the atrial fibrillation and some element of diastolic dysfunction. Her troponin is normal which make it unlikely to be ischemic in nature. Plan: Control heart rate and diuretic therapy and maintaining adequate blood pressure control. Code(s): R06.09 - Other forms of dyspnea (3) Sick sinus syndrome: Assessment/Problem Details: Patient has a pacemaker in place working properly. Code(s): I49.5 - Sick sinus syndrome (4) HTN (hypertension), benign: Assessment/Problem Details: Currently controlled Plan: Continue home medications Code(s): I10 - Essential (primary) hypertension Documented By: Jimena Smith MD, [facility] 3 1452 Signed By: <Electronically signed by [facility] Jimena Smith> 09/02/22 9676 [facility] Work Phone: 1(658) 736-792201-14-2023 Progress note Author Jay Ceja [facility] September 02, 2022 2:42pm Note Date/Time September 02, 2022 1 :43pm [facility] [address] [place] [address] Hospitalist Progress Note Signed Patient: Lesa Golden MR#: [id number] : 1940 Acct:[id number] Age/Sex: 81 / F Adm Date: 3 Loc: Room: [address] [place] [address] Type: ADM IN Attending Dr: Jay Ceja DO Copies to: ~ Date of Service: 09/02/2022 Subjective Subjective Narrative: The patient states that she is still short of breath. She does not seem to haveany symptoms of tachycardia or irregular heartbeat. On going over her symptoms I think most of the symptoms she wants to talk about relate to her chronic problems with esophageal dysphagia. She describes how shehad some sugar today and it came right back up. She and her sisters had questions about how to get more protein with her dysphagia restrictions. The patient describes some upper abdominal/lower chest fullness that is gotten worseand she says that she cannot wear a bra for the last several years. No fevers or chills. No headache. No visual abnormalities. No cough or expectorate of any sputum. She says that sometimes she can hear herself wheezing. But that was at home and not since the hospital stay started. Exam Physical Exam Vital Signs: Temp Pulse Resp BP Pulse Ox O2 Del Method 97.9 F 97 H 17 105/73 97 Room Air 09/02/22 08:00 09/02/22 12:00 09/02/22 12:00 09/02/22 12:00 09/02/22 12:00 09/02/22 12:00 Narrative: Lungs: Diminished throughout, especially in the bases. No overt wheezing. No focal crackles. Heart: To auscultation heart sounds are somewhat distant. I do not hear rubs or gallops Abdomen: Soft, normal bowel sounds, no rigidity, guarding, or acute peritoneal signs. Extremities: No swelling or cords in the calves bilaterally, a very small traceof edema in the ankles bilaterally. Skin: No systemic rashes or lesions. Objective Lab Results 09/02/22 08:16 09/02/22 08:16 Microbiology Results Microbiology 09/01/22 13:32 Urine - Clean-Voided Midstream Urine Culture - Preliminary 15,000 colonies/ml mixed bacterial skin contaminants 1 Day Meds Allergies and Active Meds Allergies fentanyl Allergy (Verified 09/01/22 12:00) Unknown Reaction Sulfa (Sulfonamide Antibiotics) Adverse Reaction (Mild, Verified 09/01/22 12:00) Itching Active Meds: Active Medications Generic Name Dose Route Start Last Admin Trade Name Freq PRN Reason Stop Dose Admin Acetaminophen 650 mg 09/01/22 20:29 09/02/22 11:41 Acetaminophen 325 Mg Tablet PO 09/01/23 20:28 650 mg Q6HR PRN Administration Pain Scale 1 - 3 or fever Atorvastatin Calcium 40 mg 09/01/22 22:00 09/02/22 03:32 Atorvastatin 40 Mg Tablet PO 09/01/23 21:59 40 mg HS KWAN Administration Bisacodyl 10 mg 09/01/22 20:29 Bisacodyl 10 Mg Supp.Rect TX 09/01/23 20:28 DAILY PRN Constipation Bisacodyl 10 mg 09/01/22 20:29 Bisacodyl 5 Mg Tablet.Dr PO 09/01/23 20:28 DAILY PRN Constipation Docusate Sodium 100 mg 09/01/22 21:00 09/02/22 08:16 Docusate 100 Mg Capsule PO 09/01/23 20:59 100 mg BID KWAN Administration Furosemide 40 mg 09/02/22 08:00 09/02/22 08:17 Furosemide 40 Mg/4 Ml Vial IV-PUSH 09/02/23 07:59 40 mg BID@0800,1600 KWAN Administration Amiodarone HCl/Dextrose 360 mg in 200 mls @ 33.333 mls/hr 09/01/22 16:15 09/02/22 11:35 Nexterone IV 09/02/22 16:14 1 mg/min .Q6H KWAN 33.33 mls/hr Administration Protocol 1 MG/MIN Magnesium Sulfate 2 gm in 50 mls @ 25 mls/hr 09/01/22 20:29 Magnesium Sulf 2gm-*Swfi* IV 09/01/23 20:28 DAILY PRN Magnesium Level < 1.5 Metoprolol Tartrate 75 mg 09/01/22 21:00 09/02/22 08:16 Metoprolol Tartrate 37.5 Mg Tablet PO 09/01/23 20:59 75 mg BID KWAN Administration Multivitamins 1 tab 09/02/22 09:00 09/02/22 08:17 Multivitamin 1 Tab Tablet PO 09/02/23 08:59 1 tab DAILY KWAN Administration Potassium Chloride 20 meq 09/01/22 20:29 Potassium Chloride Er 20 Meq Tab.Er.Prt PO 09/01/23 20:28 DAILY PRN Hypokalemia Potassium Chloride 40 meq 09/01/22 20:29 Potassium Chloride Er 20 Meq Tab.Er.Prt PO 01/13/24 20:28 DAILY PRN Hypokalemia Rivaroxaban 15 mg 09/01/22 22:00 09/02/22 03:32 Rivaroxaban 15 Mg Tablet PO 09/01/23 21:59 Not Given HS KWAN Ropinirole HCl 1 mg 09/01/22 22:00 09/01/22 22:54 Ropinirole 1 Mg Tablet PO 09/01/23 21:59 1 mg QHS KWAN Administration Sodium Chloride 0 ml 09/01/22 11:59 Sodium Chloride 0.9 % 10 Ml Syringe IV-PUSH 09/01/23 11:58 PRN PRN Flush A&P - Hospitalist Assessment/Plan (1) Atrial fibrillation with rapid ventricular response: (2) CHF (congestive heart failure): (3) Dysphagia: (4) Weakness: (5) Dyspnea on exertion: (6) Hypertension: Plan Assessment: Presentation with profound dyspnea and dyspnea on exertion with a finding of atrial fibrillation with rapid ventricular response. Concern for ventricular tachycardia emergency room but I believe that none of the alarms were true ventricular tachycardia. Clinical presentation consistent with acute congestive heart failure. Particularly with shortness of breath and pulmonary edema. 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 Chronic problems with restless leg syndrome. Chronic problems with hypertension, chronic kidney disease, and anemia Plan: Continue amiodarone infusion Awaiting results of echocardiogram. Waiting input from cardiology consultation. Maintain telemetry monitoring. Continue Lasix, which was given to the emergency room, 40 mg IV twice daily. Continue anticoagulation with Xarelto that she uses at home. Heart healthy diet. Will get high-resolution CT scan of the chest given her subjective complaints ofdyspnea out of proportion to her physical examination. Documented By: Jay Ceja DO 1341 Signed By: <Electronically signed by Jay Ceja DO> 09/02/22 1442 [facility] Work Phone: 1(274) 562-875101-13-2023 History and physical note Author Jay Ceja [facility] September 01, 2022 8:29pm Note Date/Time September 01, 2022 8 :29pm [facility] [address] [place] [address] Hospitalist H&P Signed Patient: Lesa Golden MR#: [id number] : 1940 Acct:[id number] Age/Sex: 81 / F Adm Date: 3 Loc: ER Room: Type: [facility] ER Attending Dr: Copies to: Chester العلي,DO Luis Hogue, ~ HPI DATE OF EXAMINATION: 09/01/22 CHIEF COMPLAINT: profound dyspnea over 1 week. HISTORY OF PRESENT ILLNESS: This is a 81-year-old woman who presented emergency room with profound dyspnea over 1 week. She had the dyspnea on exertion and generalized shortness of breath. While she was in the emergency room she was found to go into tachycardic rhythms. The emergency room describes that they saw her have ventricular tachycardia and then the patient became lightheaded and complainedof chest heaviness. At that point the patient was given an amiodarone bolus andthen placed on an amiodarone drip. The patient does have a pacemaker. The pacemaker was interrogated in the emergency room. The patient states that she was seeing Dr. Mac in the office just 2 weeksago and he increased her dose of metoprolol. The patient states that she has noticed a profound amount of shortness of breath. Nursing staff and emergency room note that she got very short of breathambulating from the toilet back to her ER cot which is just a few steps. The patient says that she felt that she was wheezing. She has not had any cough. She does not have any chest pain or pressure. She feels no sensation of tachycardia or palpitations. She says that normally she does not have any leg edema and a nurse told her earlier that she does have a small amount of pitting leg edema. She describes getting the pacemaker placed in June. She denies any recent illness or sick contacts. Last echocardiogram in our computer system describes a left ventricular ejectionfraction 45% with severe anteroseptal hypokinesis, but that was from June 30, 2021. In June 2021 she had presented to hospital for evaluation for pacemaker placement was found to have a bout of nonresponsiveness. Therefore atthat time the procedure was canceled and a medical emergency team was called. At that time she did have an E. coli urinary tract infection left-sided hydronephrosis with a proximal left ureter stone that was treated with stent placement, type I cardiorenal syndrome with acute kidney injury on top of her chronic kidney disease stage III-IV, and a finding of iron deficiency. 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 None of these are consistent with ventricular tachycardia. The monitor system does alarm frequently with V. tach but it is just when her axis is changing. I did print out some of these to be placed on the chart. She does remain intermittently tachycardic and from time to time pacemaker spikes are seen. I do believe that her heart rate is improving and coming more under control at about 100 bpm on the amiodarone infusion Review of Systems Review of Systems Review of systems: 10 systems are reviewed and are negative except as mentioned elsewhere in the documentation. PMFSH Vaccinated for COVID-19?: Yes Medical History (Updated 09/01/22 @ 20:27 by Jay Ceja DO) Atrial fibrillation with RVR Atrial fibrillation, persistent CHF (congestive heart failure) COVID-19 2019 Hernia of abdominal wall Hiatal hernia History of cardiac pacemaker in situ Hyperlipemia Hypertension Kidney stones Pacemaker Presbyesophagus Restless leg Surgical History H/O foot surgery left History of hysterectomy History of tonsillectomy Family History Father Heart & renal disease, hypertensive, with heart fail/chron kidney dis Depression Sister Heart disease Mother Brain tumor Social History Smoking Status: Never smoker Substance Use Type: None Social History Comments: independent living at the [facility] Medications and Allergies Allergies fentanyl Allergy (Verified 09/01/22 12:00) Unknown Reaction Sulfa (Sulfonamide Antibiotics) Adverse Reaction (Mild, Verified 09/01/22 12:00) Itching Home Medications atorvastatin 40 mg tablet 40 mg PO HS 12/14/20 [History Confirmed 09/01/22] escitalopram oxalate 10 mg tablet 10 mg PO QHS 12/14/20 [History Confirmed 09/01/22] multivitamin 1 tab PO DAILY 04/21/21 [History Confirmed 09/01/22] ropinirole 1 mg tablet 1 mg PO QHS 06/30/21 [History Confirmed 09/01/22] rivaroxaban 15 mg tablet (Xarelto) 15 mg PO HS 12/05/21 [History Confirmed 09/01/22] metoprolol tartrate 50 mg tablet 75 mg PO BID 09/01/22 [History Confirmed 09/01/22] Exam Physical Exam Vital Signs: Temp Pulse Resp BP Pulse Ox O2 Del Method 98.3 F 92 H 24 141/86 H 96 Room Air 09/01/22 12:07 09/01/22 20:00 09/01/22 19:59 09/01/22 19:59 09/01/22 19:59 09/01/22 19:59 Narrative: GEN: Awake, alert, oriented x 3. In moderate distress due to symptoms of dyspnea. Head: Normal Cephalic, Atraumatic. Eyes: Conjunctiva and sclera clear bilaterally. Nose: External nose and nares normal bilaterally. Mouth: Lips and tongue normal. Neck: No thyromegaly. No lymphadenopathy. Lungs: Diminished throughout, especially in the bases. No overt wheezing. No focal crackles. Heart: On the remelt pan tank operator she has an irregularly irregular rhythm with atrial fibrillation. Occasionally see pacemaker spikes. To auscultation heart sounds are somewhat distant. I do not hear rubs or gallops Abdomen: Soft, normal bowel sounds, no rigidity, guarding, or acute peritoneal signs. Extremities: No swelling or cords in the calves bilaterally, a very small traceof edema in the ankles bilaterally. Skin: No systemic rashes or lesions. Psychiatric: Cooperative. Neuro: No gross focal or lateralizing deficits. Results Lab Results Labs: Laboratory Last Values Corrected WBC 8.1 X10E3/uL (3.8-11.6) 09/01/22 12:40 Uncorrected WBC Count 8.1 x10E3/uL (3.8-11.6) 09/01/22 12:40 RBC 4.74 X10E6/uL (3.60-5.00) 09/01/22 12:40 Hgb 13.9 g/dL (11.8-15.4) 09/01/22 12:40 Hct 43.4 % (34.0-46.4) 09/01/22 12:40 MCV 91.4 fl (80-100) 09/01/22 12:40 MCH 29.3 pg (24.7-34.3) 09/01/22 12:40 MCHC 32.0 g/dL (32.0-35.0) 09/01/22 12:40 RDW 14.3 % (11.9-15.3) 09/01/22 12:40 Plt Count 208 x10E3/uL (150-450) 09/01/22 12:40 MPV 9.1 fl (6.3-10.7) 09/01/22 12:40 Neut % (Auto) 73.7 % (.) 09/01/22 12:40 Lymph % (Auto) 13.9 % (.) 09/01/22 12:40 [place] % (Auto) 7.5 % (.) 09/01/22 12:40 Eos % (Auto) 4.1 % (.) 09/01/22 12:40 Baso % (Auto) 0.8 % (.) 09/01/22 12:40 Nucleat RBC Rel Count 0.1 /100 WBC (0-0.5) 09/01/22 12:40 Neut # (Auto) 5.9 x10E3/uL (1.8-7.7) 09/01/22 12:40 Lymph # (Auto) 1.1 x10E3/uL (1.00-4.8) 09/01/22 12:40 [place] # (Auto) 0.6 x10E3/uL (0.0-0.8) 09/01/22 12:40 Eos # (Auto) 0.3 x10E3/uL (0.0-0.45) 09/01/22 12:40 Baso # (Auto) 0.1 x10E3/uL (0.0-0.2) 09/01/22 12:40 Monocyte Dist Width 16.84 % (0.00-20.00) 09/01/22 12:40 PHA Creatinine Clear 35.69 09/01/22 12:40 Sodium 138 mmol/L (136-146) 09/01/22 12:40 Potassium 4.2 mmol/L (3.5-5.1) 09/01/22 12:40 Chloride 109 mmol/L (95-114) 09/01/22 12:40 Carbon Dioxide 23.9 mmol/L (22.0-30.0) 09/01/22 12:40 Anion Gap 9.3 mEq/L (6.0-15.0) 09/01/22 12:40 BUN 23 mg/dL (9-23) 09/01/22 12:40 Creatinine 1.14 mg/dL (0.44-1.03) H 09/01/22 12:40 Est GFR ( Amer) 56 mL/Min 09/01/22 12:40 Est GFR (Non-Af Amer) 46 mL/Min 09/01/22 12:40 Glucose 95 mg/dL (70-100) 09/01/22 12:40 Calcium 9.0 mg/dL (8.2-10.2) 09/01/22 12:40 Total Bilirubin 1.3 mg/dL (0.3-1.2) H 09/01/22 12:40 AST 33 U/L (10-42) 09/01/22 12:40 ALT 33 U/L (10-60) 09/01/22 12:40 Alkaline Phosphatase 70 U/L (32-92) 09/01/22 12:40 Troponin I High Sens 7 pg/mL (0-15) 09/01/22 12:40 B-Natriuretic Peptide 445.0 pg/mL (5-100) H 09/01/22 12:40 Total Protein 5.9 gm/dL (6.1-7.9) L 09/01/22 12:40 Albumin 3.7 gm/dL (3.2-5.5) 09/01/22 12:40 Globulin 2.2 gm/dL 09/01/22 12:40 Albumin/Globulin Ratio 1.7 09/01/22 12:40 Urine Color Dark yellow (Yellow) A 09/01/22 13:32 Urine Appearance Clear (Clear) 09/01/22 13:32 Urine pH 5.5 (5.0-9.0) 09/01/22 13:32 Ur Specific [place] 1.022 (1.001-1.030) 09/01/22 13: Urine Protein 30 mg/dL (Negative) H 09/01/22 13:32 Urine Glucose (UA) Normal mg/dL (Normal) 09/01/22 13:32 Urine Ketones Trace (Negative) H 09/01/22 13:32 Urine Occult Blood Negative (Negative) 09/01/22 13:32 Urine Nitrite Negative (Negative) 09/01/22 13:32 Urine Bilirubin Negative (Negative) 09/01/22 13:32 Urine Urobilinogen Normal mg/dL (Normal) 09/01/22 13:32 Ur Leukocyte Esterase 2+ (Negative) H 09/01/22 13:32 Urine RBC 3-4 /HPF (0-4) 09/01/22 13:32 Urine WBC 5-9 /HPF (0-4) H 09/01/22 13:32 Ur Squamous Epith Cells 5-9 /HPF (0-2) H 09/01/22 13:32 Urine Bacteria None seen (None Seen) 09/01/22 13:32 Hyaline Casts 0-8 /LPF (0-8) 09/01/22 13:32 A&P - Hospitalist Assessment/Plan (1) Atrial fibrillation with rapid ventricular response: (2) CHF (congestive heart failure): (3) Dysphagia: (4) Weakness: (5) Dyspnea on exertion: (6) Hypertension: Plan Assessment: Presentation with profound dyspnea and dyspnea on exertion with a finding of atrial fibrillation with rapid ventricular response. Concern for ventricular tachycardia emergency room but I believe that none of the alarms were true ventricular tachycardia. Clinical presentation consistent with acute congestive heart failure. Particularly with shortness of breath and pulmonary edema. 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 Chronic problems with restless leg syndrome. Chronic problems with hypertension, chronic kidney disease, and anemia Plan: Continue amiodarone infusion overnight. Check echocardiogram the morning. Consult cardiology. Maintain telemetry monitoring. Continue Lasix, which was given to the emergency room, Continue anticoagulation with Xarelto that she uses at home. Heart healthy diet. Documented By: Jay Ceja DO 2015 Signed By: <Electronically signed by Jay Ceja DO> 09/01/222028 [facility] Work Phone: [phone]) 230-608409-08-2022 Evaluation note* Encounter Date Diagnosis Assessment Notes Treatment Notes Treatment Clinical Notes Apr, Cirrhosis (ICD-10 - K74.60) Apr, Vomiting (ICD-10 - R11.10) THIS IS 10 MINS ATER EATING AND UNDIGESTED FOODS. 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 PATIENT DID HAVE A MODIFIEDBARIUM SWALLOWNort [employer] Other 11-15-2021 Note [id number]#1.00CD:[address] [place] [address] 06-23-2021 [id number]:[facility] [address] [place] Work Phone: 1([phone]) 356-240811-04-2021 [id number]:[facility] ECG Post Procedure [facility]-[place] [address] [place] Work Phone: 1([phone]) 146-739911-04-2021 [id number]:[facility] ECG Post Procedure [facility]-[place] [address] [place] Work Phone: 1([phone]) 971-822811-02-2021 [facility] [place] [facility] (Normal[facility] Range:Negative Comments:Testing for SARS-CoV-2 by RT-PCR This test was developed and its performance characteristics determined by [employer] ([employer]) and validated at the [facility]. This test has not been FDA cleared or approved. This test has been authorized by FDA under an Emergency Use Authorization (EUA). This test has been validated in accordance with the FDA's Guidance Document (Policy for Diagnostics Testing in Laboratories Certified to Perform High Complexity Testing under CLIA prior to Emergency Use Authorization for Coronavirus Disease-2019 during the Public Health Emergency) issued on November 20, 2019. This test is only authorized for the duration of time the declaration that circumstances exist justifying the authorization of the emergency use of in vitro diagnostic tests for detection of SARS-CoV-2 virus and/or diagnosis of COVID-19 infection under section 564(b)(1) of the Act, 21 U.S.C. 360bbb-3(b)(1), unless the authorization is terminated or revoked sooner.PERFORMED BY:[facility] YUMI OLIVA [place] [id number] MEDICAL DIRECTORVITOR ZARATE M.D. [place] [id number] [place] Work Phone: Comment on above:Testing for SARS-CoV-2 by RT-PCR This test was developed and its performance characteristics determined by [employer] ([employer]) and validated at the [facility]. This test has not been FDA cleared or approved. This test has been authorized by FDA under an Emergency Use Authorization (EUA). This test has been validated in accordance with the FDA's Guidance Document (Policy for Diagnostics Testing in Laboratories Certified to Perform High Complexity Testing under CLIA prior to Emergency Use Authorization for Coronavirus Disease-2019 during the Public Health Emergency) issued on November 20, 2019. This test is only authorized for the duration of time the declarationthat circumstances exist justifying the authorization of the emergency use of in vitro diagnostic tests for detection of SARS-CoV-2 virus and/or diagnosis of COVID-19 infection under section 564(b)(1) of the Act, 21 U.S.C. 360bbb-3(b)(1), unless the authorization is terminated or revoked sooner.PERFORMED BY:[facility] YUMI OLIVA MD [id number] MEDICAL DIRECTORVITOR ZARATE M.D. 06-21-2021 NoteFR COVID-19 [facility]Negative (Normal)Range:Negative Comments:Testing for SARS-CoV-2 by RT-PCR This test was developed and its performance characteristics determined by [employer] ([employer]) and validated at the [facility]. This test has not been FDA cleared or approved. This test has been authorized by FDA under an Emergency Use Authorization (EUA). This test has been validated in accordance with the FDA's Guidance Document (Policy for Diagnostics Testing in Laboratories Certified to Perform High Complexity Testing under CLIA prior to Emergency Use Authorization for Coronavirus Disease-2019 during the Public Health Emergency) issued on November 20, 2019. This test is only authorized for the duration of time the declaration that circumstances exist justifying the authorization of the emergency use of in vitro diagnostic tests for detection of SARS-CoV-2 virus and/or diagnosis of COVID-19 infection under section 564(b)(1) of the Act, 21 U.S.C. 360bbb-3(b)(1), unless the authorization is terminated or revoked sooner.PERFORMED BY:[place] [address] [place], [place] [phone] MEDICAL DIRECTORVITOR ZARATE M.D. [address] Work Phone: Comment on above:Testing for SARS-CoV-2 by RT-PCR This test was developed and its performance characteristics determined by [employer] ([employer]) and validated at the [facility]. This test has not been FDA cleared or approved. This test has been authorized by FDA under an Emergency Use Authorization (EUA). This test has been validated in accordance with the FDA's Guidance Document (Policy for Diagnostics Testing in Laboratories Certified to Perform High Complexity Testing under CLIA prior to Emergency Use Authorization for Coronavirus Disease-2019 during the Public Health Emergency) issued on November 20, 2019. This test is only authorized for the duration of time the declarationthat circumstances exist justifying the authorization of the emergency use of in vitro diagnostic tests for detection of SARS-CoV-2 virus and/or diagnosis of COVID-19 infection under section 564(b)(1) of the Act, 21 U.S.C. 360bbb-3(b)(1), unless the authorization is terminated or revoked sooner.PERFORMED BY:[place] [address] YUMI OLIVA MD [phone] MEDICAL DIRECTORVITOR ZARATE M.D. 06-21-2021 NoteFR COVID-19 [facility]Negative (Normal)Range:Negative Comments:Testing for SARS-CoV-2 by RT-PCR This test was developed and its performance characteristics determined by [employer] ([place]) and validated at the [facility]. This test has not been FDA cleared or approved. This test has been authorized by FDA under an Emergency Use Authorization (EUA). This test has been validated in accordance with the FDA's Guidance Document (Policy for Diagnostics Testing in Laboratories Certified to Perform High Complexity Testing under CLIA prior to Emergency Use Authorization for Coronavirus Disease-2019 during the Public Health Emergency) issued on November 20, 2019. This test is only authorized for the duration of time the declaration that circumstances exist justifying the authorization of the emergency use of in vitro diagnostic tests for detection of SARS-CoV-2 virus and/or diagnosis of COVID-19 infection under section 564(b)(1) of the Act, 21 U.S.C. 360bbb-3(b)(1), unless the authorization is terminated or revoked sooner.PERFORMED BY:[place] [address] [place], [place] [phone] MEDICAL DIRECTORVITOR ZARATE M.D. [address] Work Phone: Comment on above:Testing for SARS-CoV-2 by RT-PCR This test was developed and its performance characteristics determined by [employer] ([place]) and validated at the [facility]. This test has not been FDA cleared or approved. This test has been authorized by FDA under an Emergency Use Authorization (EUA). This test has been validated in accordance with the FDA's Guidance Document (Policy for Diagnostics Testing in Laboratories Certified to Perform High Complexity Testing under CLIA prior to Emergency Use Authorization for Coronavirus Disease-2019 during the Public Health Emergency) issued on November 20, 2019. This test is only authorized for the duration of time the declarationthat circumstances exist justifying the authorization of the emergency use of in vitro diagnostic tests for detection of SARS-CoV-2 virus and/or diagnosis of COVID-19 infection under section 564(b)(1) of the Act, 21 U.S.C. 360bbb-3(b)(1), unless the authorization is terminated or revoked sooner.PERFORMED BY:[place] [address] YUMI OLIVA MD [phone] MEDICAL DIRECTORVITOR ZARATE M.D. 06-21-2021 NoteFR COVID-19 [facility] [place] (Normal)Range:Negative Comments:Testing for SARS-CoV-2 by RT-PCR This test was developed and its performance characteristics determined by [employer] ([place]) and validated at the [facility]. This test has not been FDA cleared or approved. This test has been authorized by FDA under an Emergency Use Authorization (EUA). This test has been validated in accordance with the FDA's Guidance Document (Policy for Diagnostics Testing in Laboratories Certified to Perform High Complexity Testing under CLIA prior to Emergency Use Authorization for Coronavirus Disease-2019 during the Public Health Emergency) issued on November 20, 2019. This test is only authorized for the duration of time the declaration that circumstances exist justifying the authorization of the emergency use of in vitro diagnostic tests for detection of SARS-CoV-2 virus and/or diagnosis of COVID-19 infection under section 564(b)(1) of the Act, 21 U.S.C. 360bbb-3(b)(1), unless the authorization is terminated or revoked sooner.PERFORMED BY:[place] [address] YUMI OLIVA MD [phone] MEDICAL SUZETTE ZARATE M.D. [address] Work Phone: Comment on above:Testing for SARS-CoV-2 by RT-PCR This test was developed and its performance characteristics determined by [employer] ([employer]) and validated at the [facility]. This test has not been FDA cleared or approved. This test has been authorized by FDA under an Emergency Use Authorization (EUA). This test has been validated in accordance with the FDA's Guidance Document (Policy for Diagnostics Testing in Laboratories Certified to Perform High Complexity Testing under CLIA prior to Emergency Use Authorization for Coronavirus Disease-2019 during the Public Health Emergency) issued on November 20, 2019. This test is only authorized for the duration of time the declarationthat circumstances exist justifying the authorization of the emergency use of in vitro diagnostic tests for detection of SARS-CoV-2 virus and/or diagnosis of COVID-19 infection under section 564(b)(1) of the Act, 21 U.S.C. 360bbb-3(b)(1), unless the authorization is terminated or revoked sooner.PERFORMED BY:[facility] YUMI OLIVA MD [phone] MEDICAL DIRECTORVITOR ZARATE M.D. 06-21-2021 NoteFR COVID-19 [facility] [place] (Normal)Range:Negative Comments:Testing for SARS-CoV-2 by RT-PCR This test was developed and its performance characteristics determined by [employer] ([employer]) and validated at the [facility]. This test has not been FDA cleared or approved. This test has been authorized by FDA under an Emergency Use Authorization (EUA). This test has been validated in accordance with the FDA's Guidance Document (Policy for Diagnostics Testing in Laboratories Certified to Perform High Complexity Testing under CLIA prior to Emergency Use Authorization for Coronavirus Disease-2019 during the Public Health Emergency) issued on November 20, 2019. This test is only authorized for the duration of time the declaration that circumstances exist justifying the authorization of the emergency use of in vitro diagnostic tests for detection of SARS-CoV-2 virus and/or diagnosis of COVID-19 infection under section 564(b)(1) of the Act, 21 U.S.C. 360bbb-3(b)(1), unless the authorization is terminated or revoked sooner.PERFORMED BY:[place] [address] Y[address] ALEXJovaniMelitaLUANNE [place] [phone] MEDICAL SUZETTE ZARATE M.D. [address] Work Phone: Comment on above:Testing for SARS-CoV-2 by RT-PCR This test was developed and its performance characteristics determined by [employer] ([employer]) and validated at the [facility]. This test has not been FDA cleared or approved. This test has been authorized by FDA under an Emergency Use Authorization (EUA). This test has been validated in accordance with the FDA's Guidance Document (Policy for Diagnostics Testing in Laboratories Certified to Perform High Complexity Testing under CLIA prior to Emergency Use Authorization for Coronavirus Disease-2019 during the Public Health Emergency) issued on November 20, 2019. This test is only authorized for the duration of time the declarationthat circumstances exist justifying the authorization of the emergency use of in vitro diagnostic tests for detection of SARS-CoV-2 virus and/or diagnosis of COVID-19 infection under section 564(b)(1) of the Act, 21 U.S.C. 360bbb-3(b)(1), unless the authorization is terminated or revoked sooner.PERFORMED BY:[place] [address] [place], [place] [phone] MEDICAL DIRECTORVITOR ZARATE M.D. 06-21-2021 NoteFR COVID-19 [facility]Negative (Normal)Range:Negative Comments:Testing for SARS-CoV-2 by RT-PCR This test was developed and its performance characteristics determined by [employer] ([employer]) and validated at the [facility]. This test has not been FDA cleared or approved. This test has been authorized by FDA under an Emergency Use Authorization (EUA). This test has been validated in accordance with the FDA's Guidance Document (Policy for Diagnostics Testing in Laboratories Certified to Perform High Complexity Testing under CLIA prior to Emergency Use Authorization for Coronavirus Disease-2019 during the Public Health Emergency) issued on November 20, 2019. This test is only authorized for the duration of time the declaration that circumstances exist justifying the authorization of the emergency use of in vitro diagnostic tests for detection of SARS-CoV-2 virus and/or diagnosis of COVID-19 infection under section 564(b)(1) of the Act, 21 U.S.C. 360bbb-3(b)(1), unless the authorization is terminated or revoked sooner.PERFORMED BY:[place] [address] YUMI OLIVA MD [phone] MEDICAL DIRECTORVITOR ZARATE M.D. [address] Work Phone: Comment on above:Testing for SARS-CoV-2 by RT-PCR This test was developed and its performance characteristics determined by [employer] ([place]) and validated at the [facility]. This test has not been FDA cleared or approved. This test has been authorized by FDA under an Emergency Use Authorization (EUA). This test has been validated in accordance with the FDA's Guidance Document (Policy for Diagnostics Testing in Laboratories Certified to Perform High Complexity Testing under CLIA prior to Emergency Use Authorization for Coronavirus Disease-2019 during the Public Health Emergency) issued on November 20, 2019. This test is only authorized for the duration of time the declarationthat circumstances exist justifying the authorization of the emergency use of in vitro diagnostic tests for detection of SARS-CoV-2 virus and/or diagnosis of COVID-19 infection under section 564(b)(1) of the Act, 21 U.S.C. 360bbb-3(b)(1), unless the authorization is terminated or revoked sooner.PERFORMED BY:[place] [address] [place], [place] [phone] MEDICAL DIRECTORVITOR ZARATE M.D. 06-21-2021 NoteFR COVID-19 [facility]Negative (Normal)Range:Negative Comments:Testing for SARS-CoV-2 by RT-PCR This test was developed and its performance characteristics determined by [employer] ([place]) and validated at the [facility]. This test has not been FDA cleared or approved. This test has been authorized by FDA under an Emergency Use Authorization (EUA). This test has been validated in accordance with the FDA's Guidance Document (Policy for Diagnostics Testing in Laboratories Certified to Perform High Complexity Testing under CLIA prior to Emergency Use Authorization for Coronavirus Disease-2019 during the Public Health Emergency) issued on November 20, 2019. This test is only authorized for the duration of time the declaration that circumstances exist justifying the authorization of the emergency use of in vitro diagnostic tests for detection of SARS-CoV-2 virus and/or diagnosis of COVID-19 infection under section 564(b)(1) of the Act, 21 U.S.C. 360bbb-3(b)(1), unless the authorization is terminated or revoked sooner.PERFORMED BY:[place] [address] [address] [place] [phone] MEDICAL DIRECTORVITOR ZARATE M.D. [facility] [address] DO Work Phone: Comment on above:Testing for SARS-CoV-2 by RT-PCR This test was developed and its performance characteristics determined by [employer] ([employer]) and validated at the [facility]. This test has not been FDA cleared or approved. This test has been authorized by FDA under an Emergency Use Authorization (EUA). This test has been validated in accordance with the FDA's Guidance Document (Policy for Diagnostics Testing in Laboratories Certified to Perform High Complexity Testing under CLIA prior to Emergency Use Authorization for Coronavirus Disease-2019 during the Public Health Emergency) issued on November 20, 2019. This test is only authorized for the duration of time the declarationthat circumstances exist justifying the authorization of the emergency use of in vitro diagnostic tests for detection of SARS-CoV-2 virus and/or diagnosis of COVID-19 infection under section 564(b)(1) of the Act, 21 U.S.C. 360bbb-3(b)(1), unless the authorization is terminated or revoked sooner.PERFORMED BY:[place] [id number] [place], [place] [phone] MEDICAL DIRECTORVITOR ZARATE M.D. Chief complaint Narrative - ReportedJUDKrysten GOLDEN is being seen for a cardiovascular evaluation of atrial fibrillation.JP-Wlwxigetct-Fvvhxc Work Phone: Chief complaint Narrative - ReportedJUDKrysten GOLDEN is being seen for a cardiovascular evaluation of atrial fibrillation. BE-Reisncaqjv-WXB [address] [place] Work Phone: Consult note Author Jimena Smith [facility] September 02, 2022 2:58pm Note Date/Time September 02, 2022 2 :53pm [facility] [address] [place] [address] Cardiology Consult Note Signed Patient: Lesa Golden MR#: [id number] : 1940 Acct:[id number] Age/Sex: 81 / F Adm Date: 3 Loc: 4P Room: 5T0968-2 Type: ADM IN Attending Dr: Jay Ceja DO Copies to: DO Jimena Carias MD, [facility] Jay Ceja DO~ Cardiology HPI History of Present Illness Consult Date: 09/02/22 Reason for Consult: Atrial fibrillation with RVR HPI: Ms. Golden is a 81 year old female who is being seen at request of the hospitalist for management of atrial fibrillation with RVR leading to progressive dyspnea. Patient follows with Dr. Mac for paroxysmal atrial fibrillation. For a while she was on amiodarone which due to potential toxicitywas eliminated. She has been only on rate control with metoprolol and anticoagulation with Xarelto. Patient has no previous history of heart failure or coronary artery disease and had no previous strokes or bleeding complications. Lately she has developed progressive dyspnea. She was evaluatedin the office with an EKG recently and was found to be tachycardic for which beta-leland therapy dose was increased. That apparently did not help the patient's situation and came in because of this. She did not have any evidence of acute coronary syndrome with normal troponin level. BNP was elevated. Echocardiogram revealed low normal ejection fraction at 50-55%. No significant valvular disease is noted. Her x-ray did not show any significant infiltrates or effusions. Slight increased vascular markings were noted. Patient has a pacemaker last year for sick sinus syndrome which has been functioning properly. She denies any recent febrile illnesses and denies any orthopnea or PND and minimal lower extremity edema. She has no palpitations and cannot feel her atrial fibrillation. She has been compliant medical therapy. Review of Systems Review of Systems Review of systems: Other review of system beyond what I covered above in HPI was unremarkable [facility] Vaccinated for COVID-19?: No Medical History (Updated 09/01/22 @ 20:27 by Jay Ceja DO) Atrial fibrillation with RVR Atrial fibrillation, persistent CHF (congestive heart failure) COVID-19 2019 Hernia of abdominal wall Hiatal hernia History of cardiac pacemaker in situ Hyperlipemia Hypertension Kidney stones Pacemaker Presbyesophagus Restless leg Surgical History H/O foot surgery left History of hysterectomy History of tonsillectomy Family History Father Heart & renal disease, hypertensive, with heart fail/chron kidney dis Depression Sister Heart disease Mother Brain tumor Social History Smoking Status: Never smoker Substance Use Type: None Social History Comments: independent living at the [facility] Medications and Allergies Allergies fentanyl Allergy (Verified 09/01/22 12:00) Unknown Reaction Sulfa (Sulfonamide Antibiotics) Adverse Reaction (Mild, Verified 09/01/22 12:00) Itching Home Medications atorvastatin 40 mg tablet 40 mg PO HS 12/14/20 [History Confirmed 09/01/22] escitalopram oxalate 10 mg tablet 10 mg PO QHS 12/14/20 [History Confirmed 09/01/22] multivitamin 1 tab PO DAILY 04/21/21 [History Confirmed 09/01/22] ropinirole 1 mg tablet 1 mg PO QHS 06/30/21 [History Confirmed 09/01/22] rivaroxaban 15 mg tablet (Xarelto) 15 mg PO HS 12/05/21 [History Confirmed 09/01/22] metoprolol tartrate 50 mg tablet 75 mg PO BID 09/01/22 [History Confirmed 09/01/22] Exam Physical Exam Vital Signs: Temp Pulse Resp BP Pulse Ox O2 Del Method 97.9 F 97 H 17 105/73 97 Room Air 09/02/22 08:00 09/02/22 12:00 09/02/22 12:00 09/02/22 12:00 09/02/22 12:00 09/02/22 12:00 Const General: cooperative, comfortable, no acute distress and anxious Nutritional Appearance: average body habitus Orientation: alert, awake and oriented x3 HEENT Head: normal to inspection and atraumatic Ears: hearing grossly normal bilaterally Nose: external nose normal Face and sinus: normal facial exam Eyes General: appearance normal, both eyes and all related structures Conjunctivae: conjunctivae normal Pupils: PERRL Neck Neck: normal visual inspection, full ROM, no lymphadenopathy, trachea midline and supple Neck mass: No Thyroid: thyroid normal Carotids: normal carotid upstroke Resp Effort & Inspection: normal respiratory effort Auscultation: crackles Cardio Jugular venous pressure: no JVD Palpation: normal PMI Rate: regular rate Rhythm: abnormal rhythm irregularly irregular Heart Sounds: S1 normal and S2 normal GI Inspection: normal to inspection Palpation: soft and no hepatosplenomegaly Auscultation: normal bowel sounds Extrem General: no clubbing, cyanosis or edema Results Labs 09/02/22 08:16 09/02/22 08:16 Lab results: Cardiac Enzymes 09/02/22 Range/Units 08:16 B-Natriuretic Peptide 307.0 H (5-100) pg/mL CBC 09/02/22 Range/Units 08:16 RBC 4.97 (3.60-5.00) X10E6/uL Hgb 14.7 (11.8-15.4) g/dL Hct 45.0 (34.0-46.4) % Plt Count 179 (150-450) x10E3/uL Neut # (Auto) 4.5 (1.8-7.7) x10E3/uL Lymph # (Auto) 1.6 (1.00-4.8) x10E3/uL [place] # (Auto) 0.5 (0.0-0.8) x10E3/uL Eos # (Auto) 0.2 (0.0-0.45) x10E3/uL Baso # (Auto) 0.0 (0.0-0.2) x10E3/uL Comprehensive Metabolic Panel 09/02/22 Range/Units 08:16 Sodium 137 (136-146) mmol/L Potassium 3.6 (3.5-5.1) mmol/L Chloride 102 (95-114) mmol/L Carbon Dioxide 24.1 (22.0-30.0) mmol/L BUN 19 (9-23) mg/dL Creatinine 1.16 H (0.44-1.03) mg/dL Glucose 94 (70-100) mg/dL Calcium 8.9 (8.2-10.2) mg/dL Intake and Output 09/01/22 09/02/22 09/02/22 23:59 07:59 15:59 Intake Total 300 / 300 300 / 500 200 / 500 Balance 300 / 300 300 / 500 200 / 500 Intake: IV 300 / 300 200 / 400 200 / 400 Amiodarone 150Mg-*D5w* 150 mg 100 / 100 In 100 ml @ 600 mls/hr IV [facility] Rx#:[id number] Amiodarone 360Mg-*D5w* 360 mg 200 / 200 200 / 400 200 / 400 In 200 ml @ 1 MG/MIN 33.333 mls /hr IV .Q6H [facility] Rx#:[id number] Oral 100 / 100 Other: # Voids 3 # Unmeasured Voids 2 4 Weight 53.4 kg Date of Last Bowel Movement 09/01/22 09/01/22 Patient Weight 09/02/22 23:59 Weight 53.4 kg A&P - Cardiology (1) Atrial fibrillation with rapid ventricular response: Assessment/Problem Details: Patient has not been on antiarrhythmic therapy. IV amiodarone was initiated during the admission which I will discontinue. Ejection fraction is near normal. Plan: Discontinue IV amiodarone and start dofetilide 250 mcg twice daily along with Xarelto 15 mg daily with daily EKG monitoring. Cardioversion could follow if necessary next week. Code(s): I48.91 - Unspecified atrial fibrillation (2) Dyspnea on exertion: Assessment/Problem Details: This is likely caused by the atrial fibrillation and some element of diastolic dysfunction. Her troponin is normal which make it unlikely to be ischemic in nature. Plan: Control heart rate and diuretic therapy and maintaining adequate blood pressure control. Code(s): R06.09 - Other forms of dyspnea (3) Sick sinus syndrome: Assessment/Problem Details: Patient has a pacemaker in place working properly. Code(s): I49.5 - Sick sinus syndrome (4) HTN (hypertension), benign: Assessment/Problem Details: Currently controlled Plan: Continue home medications Code(s): I10 - Essential (primary) hypertension Documented By: Jimena Smith MD, [facility] 3 1452 Signed By: <Electronically signed by LOUR[facility] COUNSELING CENTERKathie Smith> 09/02/22 1458 [facility] Work Phone: Evaluation noteNo assessment information available [facility] Work Phone: Evaluation noteNo InformationNort [employer] Other Evaluation note* Diagnosis Onset Date Resolution Status Atrial fibrillation with rapid ventricular response acute CHF (congestive heart failure) acute Dysphagia acute Dyspnea on exertion acute Hypertension acute Sick sinus syndrome acute Ventricular tachycardia acut e Weakness acute [facility] Work Phone: Evaluation note* Diagnosis Onset Date Resolution Status Atrial fibrillation with rapid ventricular response acute CHF (congestive heart failure) acute Dysphagia acute Dyspnea on exertion acute HTN (hypertension), benign a cute Hypertension acute Left ventricular systolic dysfunction, NYHA class 2 acute Sick sinus syndrome acute Ventricular tachycardia acut e Weakness acute [facility] Work Phone: evaluation note* Diagnosis Onset Date Resolution Status Atrial fibrillation with rapid ventricular response acute CHF (congestive heart failure) acute Dysphagia acute Dyspnea on exertion acute HTN (hypertension), benign a cute Hypertension acute Left ventricular systolic dysfunction, NYHA class 2 acute Sick sinus syndrome acute Ventricular tachycardia acut e Weakness acute Atrial fibrillation with rapid ventricular response acute Syncope acute [facility] Work Phone: evaluation note* Diagnosis Onset Date Resolution Status Atrial fibrillation with rapid ventricular response acute CHF (congestive heart failure) acute Dysphagia acute Dyspnea on exertion acute HTN (hypertension), benign a cute Hypertension acute Left ventricular systolic dysfunction, NYHA class 2 acute Sick sinus syndrome acute Ventricular tachycardia acut e Weakness acute Anticoagulated acute Atrial fibrillation with rapid ventricular response acute Dyspnea on exertion acute Hypertension acute Left ventricular systolic dysfunction, NYHA class 2 acute Syncope acute [facility] Work Phone: evaluation note* Diagnosis Onset Date Resolution Status Atrial fibrillation with rapid ventricular response acute CHF (congestive heart failure) acute Dysphagia acute Dyspnea on exertion acute HTN (hypertension), benign a cute Hypertension acute Left ventricular systolic dysfunction, NYHA class 2 acute Sick sinus syndrome acute Ventricular tachycardia acut e Weakness acute Anticoagulated acute Atrial fibrillation with rapid ventricular response acute Dyspnea on exertion acute Hypertension acute Left ventricular systolic dysfunction, NYHA class 2 acute Syncope acute Atrial fibrillation, persistent acute [facility] Work Phone: Evaluation note* Diagnosis Onset Date Resolution Status Anticoagulated acute Atrial fibrillation with rapid ventricular response acute Dyspnea on exertion acute Hypertension acute Left ventricular systolic dysfunction, NYHA class 2 acute Syncope acute Atrial fibrillation, persistent acute [facility] Work Phone: evaluation note* Diagnosis Persistent atrial fibrillation (CMS/HCC)- Primary Atrial fibrillation 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) Chronic diastolic heart failure (CMS/HCC) Chronic diastolic heart failure Essential hypertension, benign Hyperlipidemia, unspecified hyperlipidemia type Pacemaker Cardiac pacemaker in situ Sinus bradycardia Other specified cardiac dysrhythmias Anticoagulated Encounter for long-term (current) use of anticoagulants Class 1 obesity due to excess calories without serious comorbidity with body mass index (BMI) of 32.0 to 32.9 in adult Stage 3a chronic kidney disease (CMS/HCC) Dyspnea, unspecified type documented in this encounter [facility] Work Phone: Evaluation note* Diagnosis Chronic diastolic heart failure (CMS/HCC) Chronic diastolic heart failure Essential hypertension, benign Dyspnea, unspecified type documented in this encounter [facility] Work Phone: Evaluation note* Diagnosis Chronic diastolic heart failure (CMS/HCC) Chronic diastolic heart failure Essential hypertension, benign Dyspnea, unspecified type documented in this encounter [facility] Work Phone: Evaluation note* Diagnosis Persistent atrial fibrillation (CMS/[facility])- Primary Atrial fibrillation 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) Chronic diastolic heart failure (CMS/HCC) Chronic diastolic heart failure Essential hypertension, benign Mixed hyperlipidemia Pacemaker Cardiac pacemaker in situ Sinus bradycardia Other specified cardiac dysrhythmias Single vessel coronary artery disease Coronary atherosclerosis of unspecified type of vessel, hamilton or graft documented in this encounter [facility] Work Phone: Evaluation note* Diagnosis Onset Date Resolution Status 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) acute Hypercholesterolemia acute Lumbar spondylosis acute Obstructive sleep apnea acut e Paroxysmal atrial fibrillation acute Primary hypertension acute Stage 3a chronic kidney disease [facility] Work Phone: History general Narrative - Reported* Type Description Date Medical History fibromyalgia Medical History chronic pain Medical History hypertension Surgical History hernia 2015 Surgical History foot surgery Surgical History cardiac pacemeker Surgical History appendectomy Hospitalization History hospitalization in every 24. Depression with treatment of ECT Hospitalization History no history of suicide at [facility] Hospitalization History no history of trauma and substance abuse [employer] Other History general Narrative - Reported* Type Description Date Medical History Dysphagia Medical History Esophagogastric junction outflow obstruction Medical History Cirrhosis Medical History Emesis Medical History Persistent atrial fibrillation Medical History Chronic heart failur e with preserved ejection fraction Medical History Primary hypertension Medical History Stage 3a chronic kidney disease Medical History Obstructive sleep apnea Medical History Elevated cholesterol Medical History Restless legs syndrome Medical History Depression, major, recurrent, mi ld Medical History Lumbar spondylosis Medical History Hypercholesterolemia Medical History Large hiatal hernia Medical History Calculus of gallblad kyrie without cholecystitis without obstruction Medical History Pruritic intertrigo Medical History Esophageal spasm Medical History Dysphagia, pharyngoesophageal Medical History Elevated transaminase level Medical History Cardiac pacemaker Medical History Hypochromic-microcytic anemia Medical History Decreased responsiveness Medical History Shortness of breath Medical History Bladder incontinence Medical History Osteopenia of lumbar spine Medical History Arthritis of knee, left Medical History Malaise Surgical History hernia 2014 Surgical History foot surgery Surgical History cardiac pacemeker Surgical History appendectomy Surgical History EGD 2021 Surgical History COLONOSCOPY 1998,2005,2011 Hospitalization History hospitalization in every 24. Depression with treatment of ECT Hospitalization History no history of suicide at [facility] Hospitalization History no history of trauma and substance abuse Hospitalization History SEE SURGICAL HX [employer] Other History general Narrative - Reported* Type Description Date Medical History Dysphagia Medical History Esophagogastric junction outflow obstruction Medical History Cirrhosis Medical History Emesis Medical History Persistent atrial fibrillation Medical History Chronic heart failur e with preserved ejection fraction Medical History Primary hypertension Medical History Stage 3a chronic kidney disease Medical History Obstructive sleep apnea Medical History Elevated cholesterol Medical History Restless legs syndrome Medical History Depression, major, recurrent, mi ld Medical History Lumbar spondylosis Medical History Hypercholesterolemia Medical History Large hiatal hernia Medical History Calculus of gallblad kyrie without cholecystitis without obstruction Medical History Pruritic intertrigo Medical History Esophageal spasm Medical History Dysphagia, pharyngoesophageal Medical History Elevated transaminase level Medical History Cardiac pacemaker Medical History Hypochromic-microcytic anemia Medical History Decreased responsiveness Medical History Shortness of breath Medical History Bladder incontinence Medical History Osteopenia of lumbar spine Medical History Arthritis of knee, left Medical History Malaise Surgical History hernia 2014 Surgical History foot surgery Surgical History cardiac pacemeker Surgical History appendectomy Surgical History EGD 2021 Surgical History COLONOSCOPY 1998,2005,2011 Surgical History LHC 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 Depression with treatment of ECT Hospitalization History no history of suicide at [facility] Hospitalization History no history of trauma and substance abuse Hospitalization History SEE SURGICAL HX [employer] Other History of Present illness Narrative* Patient is here for follow-up to management for persistent atrial fibrillation with known tachybradycardia syndrome, long-term anticoagulation, hypertension and hyperlipidemia. Last time I saw her she reports has been feeling well. She denies complaint of chest pain, palpitation, lightheadedness, dizziness or syncope. She remains in sinus rhythm on amiodarone. Her recent device check noted and reviewed with her. Recent laboratory data noted * Assessment * 1. Persistent atrial fibrillation with clinical picture of tachybradycardia syndrome. She is statuspost permanent pacemaker implantation recently * 2. Long-term anticoagulation with Xarelto * 3. Recent diagnosis with nephrolithiasis requiring laser stented fragmentation and implantation of urethral stent which was removed recently by Dr. Alfonso * 4. Hypertension controlled * 5. Hyperlipidemia * 6. Borderline overweight * 7. Patient describes shortness of breath without evidence of volume overload * 8. Recent diagnosis of gallbladder disease * Plan * 1. I had with the patient the results of her recent laboratory data * 2. Risk, benefit and alternative anticoagulation reviewed patient understood and agreed * 3. I discussed with her long-term side effect of amiodarone. We discussed whether to continue that or switch to sotalol or Tikosyn which she did not tolerate in the past due to bradycardia following lengthy discussion the patient agreed to that. She was advised to discontinue amiodarone. We will july ng her back in 3 to 4 months for follow-up if she developed atrial fibrillation will consider placing her on sotalol * 4. Follow-up in 3 months * 5. Cancer amiodarone testing * 6. Follow-up with pacemaker clinic [facility] 250 DO Work Phone: History of Present illness Narrative* Here for follow- up continue management for persistent atrial fibrillation with clinical picture of tachybradycardia syndrome, long-term anticoagulation. Last time I saw her we elected to stop her amiodarone with a recommendation to repeat her EKG and if she has recurrence we will consider placing her on sotalol or Tikosyn. Patient reports symptoms of fatigue and tiredness. She report a little bitof shortness of breath. She denies chest pain. She reports she is having some GI symptomatology andthere is some concern about liver cirrhosis all of the above has been addressed by her mental health orderly Dr. Mota. She reports she underwent esophageal dilatation not too long ago. Her recent device check and EKG today demonstrate maintenance of sinus rhythm. Recent laboratory data showed creatinine 1.6. Previous echocardiogram showed LV systolic function in the normal range and a previous stress test was negative in [place]. * Assessment * 1. Persistent atrial fibrillation with clinical picture of tachybradycardia syndrome. She is statuspost permanent pacemaker implantation recently remain in sinus rhythm off amiodarone which we discontinued because of concern about long-term side effect with recommendation to consider Tikosyn or sotalol down the road if she had recurrence * 2. Long-term anticoagulation with Xarelto which dose due to renal dysfunction * 3. Recent diagnosis with nephrolithiasis requiring laser stented fragmentation and implantation of urethral stent which was removed recently by Dr. Alfonso * 4. Hypertension controlled * 5. Hyperlipidemia * 6. Borderline overweight * 7. Patient describes shortness of breath without evidence of volume overload stable unchanged from before * 8. Other disease and esophageal stricture with concern liver cirrhosis followed by GI * Plan * 1. I had with the patient the results of her recent laboratory data * 2. Risk, benefit and alternative anticoagulation reviewed patient understood and agreed * 3. Continue to monitor for arrhythmia if she goes back to atrial fibrillation will consider Tikosynor sotalol * 4. Follow-up in month with an EKG * 5. Continue pacemaker follow-up * 6. I continue to encourage the patient to exercise and try to lose some weight [facility] 250 DO Work Phone: History of Present illness Narrative* Patient is here for follow-up continue management for history of tachybradycardia syndrome, long-term anticoagulation, hypertension and hyperlipidemia. Since last time I saw her she denies any cardiac complaint of chest pain, palpitation, lightheadedness, dizziness or syncope. Her main complaint issymptoms of fatigue and tiredness. Recent device check, EKG and lab work all noted and reviewed with her. * Assessment * 1. Persistent atrial fibrillation with clinical picture of tachybradycardia syndrome. She is statuspost permanent pacemaker implantation recently remain in sinus rhythm off amiodarone which we discontinued because of concern about long-term side effect with recommendation to consider Tikosyn or sotalol down the road if she had recurrence * 2. Long-term anticoagulation with Xarelto which dose due to renal dysfunction * 3. History of nephrolithiasis * 4. Hypertension controlled * 5. Hyperlipidemia with mild weight gain recently * 6. Borderline overweight * 7. Patient describes shortness of breath without evidence of volume overload stable unchanged from before * 8. Had complaint of recurrent nausea and vomiting she was diagnosed with esophageal stricture with concern liver cirrhosis followed by GI * Plan * 1. I had with the patient the results of her recent laboratory data * 2. Risk, benefit and alternative anticoagulation reviewed patient understood and agreed * 3. Continue to monitor for arrhythmia if she goes back to atrial fibrillation will consider Tikosynor sotalol * 4. Follow-up in month with an EKG * 5. Continue pacemaker follow-up * 6. I continue to encourage the patient to exercise and try to lose some weight. I advised her to restrict her salt intake * 7. I reviewed her pacemaker check with her [facility] DO Work Phone: History of Present illness Narrative* Patient is here for follow-up continue management for persistent atrial fibrillation with tachybradycardia syndrome. She did not tolerate amiodarone. Dofetilide was ineffective at lower dose and she developed QT prolongation with higher dose. Currently had been on sotalol and seem to remain in sinus rhythm. We did refer her for ablation and had been seen by both Dr. Chacon and Dr. Stafford. She did un dergo cardiac catheterization that showed small diagonal disease and medical therapy was recommended. Since last time I saw her she describes symptoms of regurgitation of her food. She reported previous history of hiatal hernia. The result of her recent heart cath noted and reviewed with her * Assessment * 1. Persistent atrial fibrillation with clinical picture of tachybradycardia syndrome. She is statuspost permanent pacemaker implantation. She appears to be in normal sinus rhythm on current dose of sotalol. She is in the process of being evaluated for ablation. Amiodarone in the past discontinued because of concern about side effects. She did not tolerate dofetilide higher dose and the smaller dose was ineffective. * 2. Long-term anticoagulation with Xarelto which dose due to renal dysfunction * 3. History of nephrolithiasis * 4. Hypertension controlled * 5. Hyperlipidemia * 6. Borderline overweight * 7. Repeat presentation with diastolic heart failure. * 8. Had complaint of recurrent nausea and food regurgitation appears to be due to previous history of hiatal hernia and gallbladder disease * 9. Single-vessel coronary artery disease affecting small diagonal medical therapy was recommended * 10. Historically the patient is known to have normal LV systolic function however last echo showed LVEF around 40% when she was in atrial fibrillation. This has improved heart cath recently showed EFis 65% * 11. Shortness of breath due to diastolic dysfunction * Plan * 1. I reviewed with the patient results of her cardiac catheterization. We will continue with medical therapy * 2. Risk, benefit and alternative anticoagulation and sotalol reviewed patient understood and agreed * 3. Continue to monitor for arrhythmia. Patient apparently being evaluated for ablation she is scheduled to see Dr. Stafford in the near future * 4. We will refer her back to Dr. Stout for evaluation for her gallbladder disease and hiatal hernia * 5. Continue pacemaker follow-up * 6. I continue to encourage the patient to exercise and try to lose some weight. I advised her to restrict her salt intake [facility] Work Phone: History of Present illness Narrative* Patient is here for follow-up continue management for persistent atrial fibrillation with tachybradycardia syndrome. She did not tolerate amiodarone. Dofetilide was ineffective at lower dose and she developed QT prolongation with higher dose. Currently had been on sotalol and seem to remain in sinus rhythm. We did refer her for ablation and had been seen by both Dr. Chacon and Dr. Stafford. She did un dergo cardiac catheterization that showed small diagonal disease and medical therapy was recommended. Since last time I saw her she describes symptoms of regurgitation of her food. She reported previous history of hiatal hernia. The result of her recent heart cath noted and reviewed with her * Assessment * 1. Persistent atrial fibrillation with clinical picture of tachybradycardia syndrome. She is statuspost permanent pacemaker implantation. She appears to be in normal sinus rhythm on current dose of sotalol. She is in the process of being evaluated for ablation. Amiodarone in the past discontinued because of concern about side effects. She did not tolerate dofetilide higher dose and the smaller dose was ineffective. * 2. Long-term anticoagulation with Xarelto which dose due to renal dysfunction * 3. History of nephrolithiasis * 4. Hypertension controlled * 5. Hyperlipidemia * 6. Borderline overweight * 7. Repeat presentation with diastolic heart failure. * 8. Had complaint of recurrent nausea and food regurgitation appears to be due to previous history of hiatal hernia and gallbladder disease * 9. Single-vessel coronary artery disease affecting small diagonal medical therapy was recommended * 10. Historically the patient is known to have normal LV systolic function however last echo showed LVEF around 40% when she was in atrial fibrillation. This has improved heart cath recently showed EFis 65% * 11. Shortness of breath due to diastolic dysfunction * Plan * 1. I reviewed with the patient results of her cardiac catheterization. We will continue with medical therapy * 2. Risk, benefit and alternative anticoagulation and sotalol reviewed patient understood and agreed * 3. Continue to monitor for arrhythmia. Patient apparently being evaluated for ablation she is scheduled to see Dr. Stafford in the near future * 4. We will refer her back to Dr. Stout for evaluation for her gallbladder disease and hiatal hernia * 5. Continue pacemaker follow-up * 6. I continue to encourage the patient to exercise and try to lose some weight. I advised her to restrict her salt intake [facility] Work Phone: History of Present illness Narrative* Patient is here for follow-up continue management for persistent atrial fibrillation with tachybradycardia syndrome. She did not tolerate amiodarone. Dofetilide was ineffective at lower dose and she developed QT prolongation with higher dose. Currently had been on sotalol and seem to remain in sinus rhythm. We did refer her for ablation and had been seen by both Dr. Chacon and Dr. Stafford. She did un dergo cardiac catheterization that showed small diagonal disease and medical therapy was recommended. Since last time I saw her she describes symptoms of regurgitation of her food. She reported previous history of hiatal hernia. The result of her recent heart cath noted and reviewed with her * Assessment * 1. Persistent atrial fibrillation with clinical picture of tachybradycardia syndrome. She is statuspost permanent pacemaker implantation. She appears to be in normal sinus rhythm on current dose of sotalol. She is in the process of being evaluated for ablation. Amiodarone in the past discontinued because of concern about side effects. She did not tolerate dofetilide higher dose and the smaller dose was ineffective. * 2. Long-term anticoagulation with Xarelto which dose due to renal dysfunction * 3. History of nephrolithiasis * 4. Hypertension controlled * 5. Hyperlipidemia * 6. Borderline overweight * 7. Repeat presentation with diastolic heart failure. * 8. Had complaint of recurrent nausea and food regurgitation appears to be due to previous history of hiatal hernia and gallbladder disease * 9. Single-vessel coronary artery disease affecting small diagonal medical therapy was recommended * 10. Historically the patient is known to have normal LV systolic function however last echo showed LVEF around 40% when she was in atrial fibrillation. This has improved heart cath recently showed EFis 65% * 11. Shortness of breath due to diastolic dysfunction * Plan * 1. I reviewed with the patient results of her cardiac catheterization. We will continue with medical therapy * 2. Risk, benefit and alternative anticoagulation and sotalol reviewed patient understood and agreed * 3. Continue to monitor for arrhythmia. Patient apparently being evaluated for ablation she is scheduled to see Dr. Stafford in the near future * 4. We will refer her back to Dr. Stout for evaluation for her gallbladder disease and hiatal hernia * 5. Continue pacemaker follow-up * 6. I continue to encourage the patient to exercise and try to lose some weight. I advised her to restrict her salt intake [facility] Work Phone: Hospital Discharge instructions Additional Instructions Speech therapy recommendations: *Take pills whole with water *Sit upright at 90 degrees during all oral intake *Sit upright for 30 minutes after meals and snacks Dietitian recommendations: *Boost plus, 1 container, [facility] Work [facility]: Hospital Discharge instructions Additional Instructions You are scheduled for an EKG at /[facility] Office on 09/27/2022 at 1:00pm [facility] Work Phone: Progress note Author Jay Ceja [facility] September 02, 2022 2:42pm Note Date/Time September 02, 2022 1 :43pm [facility] [address] [place] [address] Hospitalist Progress Note Signed Patient: Lesa Golden MR#: [id number] : 1940 Acct:[id number] Age/Sex: 81 / F Adm Date: 3 Loc: Room: [address] [place] [address] Type: ADM IN Attending Dr: Jay Ceja DO Copies to: ~ Date of Service: 09/02/2022 Subjective Subjective Narrative: The patient states that she is still short of breath. She does not seem to haveany symptoms of tachycardia or irregular heartbeat. On going over her symptoms I think most of the symptoms she wants to talk about relate to her chronic problems with esophageal dysphagia. She describes how shehad some sugar today and it came right back up. She and her sisters had questions about how to get more protein with her dysphagia restrictions. The patient describes some upper abdominal/lower chest fullness that is gotten worseand she says that she cannot wear a bra for the last several years. No fevers or chills. No headache. No visual abnormalities. No cough or expectorate of any sputum. She says that sometimes she can hear herself wheezing. But that was at home and not since the hospital stay started. Exam Physical Exam Vital Signs: Temp Pulse Resp BP Pulse Ox O2 Del Method 97.9 F 97 H 17 105/73 97 Room Air 09/02/22 08:00 09/02/22 12:00 09/02/22 12:00 09/02/22 12:00 09/02/22 12:00 09/02/22 12:00 Narrative: Lungs: Diminished throughout, especially in the bases. No overt wheezing. No focal crackles. Heart: To auscultation heart sounds are somewhat distant. I do not hear rubs or gallops Abdomen: Soft, normal bowel sounds, no rigidity, guarding, or acute peritoneal signs. Extremities: No swelling or cords in the calves bilaterally, a very small traceof edema in the ankles bilaterally. Skin: No systemic rashes or lesions. Objective Lab Results 09/02/22 08:16 09/02/22 08:16 Microbiology Results Microbiology 09/01/22 13:32 Urine - Clean-Voided Midstream Urine Culture - Preliminary 15,000 colonies/ml mixed bacterial skin contaminants 1 Day Meds Allergies and Active Meds Allergies fentanyl Allergy (Verified 09/01/22 12:00) Unknown Reaction Sulfa (Sulfonamide Antibiotics) Adverse Reaction (Mild, Verified 09/01/22 12:00) Itching Active Meds: Active Medications Generic Name Dose Route Start Last Admin Trade Name Freq PRN Reason Stop Dose Admin Acetaminophen 650 mg 09/01/22 20:29 09/02/22 11:41 Acetaminophen 325 Mg Tablet PO 09/01/23 20:28 650 mg Q6HR PRN Administration Pain Scale 1 - 3 or fever Atorvastatin Calcium 40 mg 09/01/22 22:00 09/02/22 03:32 Atorvastatin 40 Mg Tablet PO 09/01/23 21:59 40 mg HS KWAN Administration Bisacodyl 10 mg 09/01/22 20:29 Bisacodyl 10 Mg Supp.Rect TX 09/01/23 20:28 DAILY PRN Constipation Bisacodyl 10 mg 09/01/22 20:29 Bisacodyl 5 Mg Tablet. PO 09/01/23 20:28 DAILY PRN Constipation Docusate Sodium 100 mg 09/01/22 21:00 09/02/22 08:16 Docusate 100 Mg Capsule PO 09/01/23 20:59 100 mg BID KWAN Administration Furosemide 40 mg 09/02/22 08:00 09/02/22 08:17 Furosemide 40 Mg/4 Ml Vial IV-PUSH 09/02/23 07:59 40 mg BID@0800,1600 KWAN Administration Amiodarone HCl/Dextrose 360 mg in 200 mls @ 33.333 mls/hr 09/01/22 16:15 09/02/22 11:35 Nexterone IV 09/02/22 16:14 1 mg/min .Q6H KWAN 33.33 mls/hr Administration Protocol 1 MG/MIN Magnesium Sulfate 2 gm in 50 mls @ 25 mls/hr 09/01/22 20:29 Magnesium Sulf 2gm-*Swfi* IV 09/01/23 20:28 DAILY PRN Magnesium Level < 1.5 Metoprolol Tartrate 75 mg 09/01/22 21:00 09/02/22 08:16 Metoprolol Tartrate 37.5 Mg Tablet PO 09/01/23 20:59 75 mg BID KWAN Administration Multivitamins 1 tab 09/02/22 09:00 09/02/22 08:17 Multivitamin 1 Tab Tablet PO 09/02/23 08:59 1 tab DAILY KWAN Administration Potassium Chloride 20 meq 09/01/22 20:29 Potassium Chloride Er 20 Meq Tab.Er.Prt PO 09/01/23 20:28 DAILY PRN Hypokalemia Potassium Chloride 40 meq 09/01/22 20:29 Potassium Chloride Er 20 Meq Tab.Er.Prt PO 09/01/23 20:28 DAILY PRN Hypokalemia Rivaroxaban 15 mg 09/01/22 22:00 09/02/22 03:32 Rivaroxaban 15 Mg Tablet PO 09/01/23 21:59 Not Given HS KWAN Ropinirole HCl 1 mg 09/01/22 22:00 09/01/22 22:54 Ropinirole 1 Mg Tablet PO 09/01/23 21:59 1 mg QHS KWAN Administration Sodium Chloride 0 ml 09/01/22 11:59 Sodium Chloride 0.9 % 10 Ml Syringe IV-PUSH 09/01/23 11:58 PRN PRN Flush A&P - Hospitalist Assessment/Plan (1) Atrial fibrillation with rapid ventricular response: (2) CHF (congestive heart failure): (3) Dysphagia: (4) Weakness: (5) Dyspnea on exertion: (6) Hypertension: Plan Assessment: Presentation with profound dyspnea and dyspnea on exertion with a finding of atrial fibrillation with rapid ventricular response. Concern for ventricular tachycardia emergency room but I believe that none of the alarms were true ventricular tachycardia. Clinical presentation consistent with acute congestive heart failure. Particularly with shortness of breath and pulmonary edema. 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 Chronic problems with restless leg syndrome. Chronic problems with hypertension, chronic kidney disease, and anemia Plan: Continue amiodarone infusion Awaiting results of echocardiogram. Waiting input from cardiology consultation. Maintain telemetry monitoring. Continue Lasix, which was given to the emergency room, 40 mg IV twice daily. Continue anticoagulation with Xarelto that she uses at home. Heart healthy diet. Will get high-resolution CT scan of the chest given her subjective complaints ofdyspnea out of proportion to her physical examination. 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) Pacemaker Sinus bradycardia Debbie Mac MD [address], [place] [address] [place] [id number] Referral ID Status Reason Start Date Expiration Date Visits Requested Visits Authorized [id number] Authorized Specialty Services Required 09/19/2023 09/18/2024 1 1 * Cardiovascular (Routine) - Authorized Specialty Diagnoses / Procedures Referred By Contleonides t Referred To Contact Diagnoses Persistent atrial fibrillation (CMS/HCC) Procedures ECG 12 Lead Debbie Mac MD [address] [facility] 2, [place] [place] [id number] Referral ID Status Reason Start Date Expiration Date V isits Requested Visits Authorized [id number] Authorized 09/19/2023 09/18/2024 1 1 * Consultation (Routine) - Authorized Specialty Diagnoses / Procedures Referred By Ashtyn dobson Referred To Contact Cardiology Diagnoses Persistent atrial fibrillation (CMS/HCC) 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) Chronic diastolic heart failure (CMS/HCC) Procedures Follow Up In Cardiology Debbie Mac MD [facility] 2, [address] [address] Debbie Mac MD [facility] 2, [address] [address] Referral ID Status Reason Start Date Expiration Date V isits Requested Visits Authorized [id number] Authorized 09/19/2023 09/18/2024 1 1 [facility] Work Phone: Summary Purpose Family History No Family History Records FoundUnknown Family Member Name Dates Details Family history of neoplasm o f brain: Mother(V19.8, Z84.89) Status:Active Family history of arterioscl erotic cardiovascular disease: Father(V17.49, Z82.49) Status:Active Unknown Family Member Name Dates Details Family history of neoplasm o f brain: Mother(V19.8, Z84.89) Status:Active Family history of arterioscl erotic cardiovascular disease: Father(V17.49, Z82.49) Status:Active Unknown Family Member Name Dates Details Family history of neoplasm o f brain: Mother(V19.8, Z84.89) Status:Active Family history of arterioscl erotic cardiovascular disease: Father(V17.49, Z82.49) Status:Active Unknown Family Member Name Dates Details Family history of neoplasm o f brain: Mother(V19.8, Z84.89) Status:Active Family history of arterioscl erotic cardiovascular disease: Father(V17.49, Z82.49) Status:Active Unknown Family Member Name Dates Details Family history of neoplasm o f brain: Mother(V19.8, Z84.89) Status:Active Family history of arterioscl erotic cardiovascular disease: Father(V17.49, Z82.49) Status:Active Unknown Family Member Name Dates Details Family history of neoplasm o f brain: Mother(V19.8, Z84.89) Status:Active Family history of arterioscl erotic cardiovascular disease: Father(V17.49, Z82.49) Status:Active Unknown Family Member Name Dates Details Family history of neoplasm o f brain: Mother(V19.8, Z84.89) Status:Active Family history of arterioscl erotic cardiovascular disease: Father(V17.49, Z82.49) Status:Active Unknown Family Member Name Dates Details Family history of neoplasm o f brain: Mother(V19.8, Z84.89) Status:Active Family history of arterioscl erotic cardiovascular disease: Father(V17.49, Z82.49) Status:Active Unknown Family Member Name Dates Details Family history of neoplasm o f brain: Mother(V19.8, Z84.89) Status:Active Family history of arterioscl erotic cardiovascular disease: Father(V17.49, Z82.49) Status:Active Unknown Family Member Name Dates Details Family history of neoplasm o f brain: Mother(V19.8, Z84.89) Status:Active Family history of arterioscl erotic cardiovascular disease: Father(V17.49, Z82.49) Status:Active Unknown Family Member Name Dates Details Family history of arterioscl erotic cardiovascular disease: Father(V17.49, Z82.49) Status:Active Family history of neoplasm o f brain: Mother(V19.8, Z84.89) Status:Active Unknown Family Member Name Dates Details Family history of neoplasm o f brain: Mother(V19.8, Z84.89) Status:Active Family history of arterioscl erotic cardiovascular disease: Father(V17.49, Z82.49) Status:Active Relationship Condition Age at Onset Recorded Date/T [place] father Heart & renal diseas e, hypertensive, with heart fail/chron kidney dis Unknown Depression Unknown sister Heart disease Unknown Not Specified Neoplasm of brain Unknown Unknown Family Member Name Dates Details Family history of neoplasm o f brain: Mother(V19.8, Z84.89) Status:Active Family history of arterioscl erotic cardiovascular disease: Father(V17.49, Z82.49) Status:Active Unknown Family Member Name Dates Details Family history of neoplasm o f brain: Mother(V19.8, Z84.89) Status:Active Family history of arterioscl erotic cardiovascular disease: Father(V17.49, Z82.49) Status:Active Unknown Family Member Name Dates Details Family history of neoplasm o f brain: Mother(V19.8, Z84.89) Status:Active Family history of arterioscl erotic cardiovascular disease: Father(V17.49, Z82.49) Status:Active Unknown Family Member Name Dates Details Family history of neoplasm o f brain: Mother(V19.8, Z84.89) Status:Active Family history of arterioscl erotic cardiovascular disease: Father(V17.49, Z82.49) Status:Active Unknown Family Member Name Dates Details Family history of neoplasm o f brain: Mother(V19.8, Z84.89) Status:Active Family history of arterioscl erotic cardiovascular disease: Father(V17.49, Z82.49) Status:Active Unknown Family Member Name Dates Details Family history of neoplasm o f brain: Mother(V19.8, Z84.89) Status:Active Family history of arterioscl erotic cardiovascular disease: Father(V17.49, Z82.49) Status:Active Unknown Family Member Name Dates Details Family history of neoplasm o f brain: Mother(V19.8, Z84.89) Status:Active Family history of arterioscl erotic cardiovascular disease: Father(V17.49, Z82.49) Status:Active Unknown Family Member Name Dates Details Family history of neoplasm o f brain: Mother(V19.8, Z84.89) Status:Active Family history of arterioscl erotic cardiovascular disease: Father(V17.49, Z82.49) Status:Active Unknown Family Member Name Dates Details Family history of neoplasm o f brain: Mother(V19.8, Z84.89) Status:Active Family history of arterioscl erotic cardiovascular disease: Father(V17.49, Z82.49) Status:Active Unknown Family Member Name Dates Details Family history of neoplasm o f brain: Mother(V19.8, Z84.89) Status:Active Family history of arterioscl erotic cardiovascular disease: Father(V17.49, Z82.49) Status:Active Unknown Family Member Name Dates Details Family history of neoplasm o f brain: Mother(V19.8, Z84.89) Status:Active Family history of arterioscl erotic cardiovascular disease: Father(V17.49, Z82.49) Status:Active Unknown Family Member Name Dates Details Family history of arterioscl erotic cardiovascular disease: Father(V17.49, Z82.49) Status:Active Family history of neoplasm o f brain: Mother(V19.8, Z84.89) Status:Active Unknown Family Member Name Dates Details Family history of arterioscl erotic cardiovascular disease: Father(V17.49, Z82.49) Status:Active Family history of neoplasm o f brain: Mother(V19.8, Z84.89) Status:Active Unknown Family Member Name Dates Details Family history of neoplasm o f brain: Mother(V19.8, Z84.89) Status:Active Family history of arterioscl erotic cardiovascular disease: Father(V17.49, Z82.49) Status:Active Unknown Family Member Name Dates Details Family history of neoplasm o f brain: Mother(V19.8, Z84.89) Status:Active Family history of arterioscl erotic cardiovascular disease: Father(V17.49, Z82.49) Status:Active Unknown Family Member Name Dates Details Family history of neoplasm o f brain: Mother(V19.8, Z84.89) Status:Active Family history of arterioscl erotic cardiovascular disease: Father(V17.49, Z82.49) Status:Active Relationship Condition Age at Onset Recorded Date/T [place] father Heart & renal diseas e, hypertensive, with heart fail/chron kidney dis Unknown Depression Unknown sister Heart disease Unknown Not Specified Neoplasm of brain Unknown father Unknown Not Specified Unknown Advance Directives No Advanced Directives Records Found Advance Directive Response Recorded Date/ Time Advance Directives No June 25, 2020 12:57pm Advance Directive Response Recorded Date/ Time Advance Directives No June 25, 2020 11:57am Hospital Course Note MR#: [id number] [facility] Pt. Name: Lesa Golden Admitted: 07/26/2020 Discharged: 07/31/2020 Date of : 1940 Physician: Jelani Soria MD DISCHARGE SUMMARY HOSPITAL COURSE: The patient's discharge plan was scheduled on July 28 after cardioversion. Somehow, the patient failed cardioversion and reverted back to sinus rhythm and then had some episodes of drowsiness and difficulty in articulation. So Stroke Team was initiated. The Stroke Team was called in and it was considered most likely some sedation. Initial stroke workup was nonconclusive. The patient was started on amiodarone infusion and transferred to the Cardiac Unit with some dopamine support, which was weaned off later. The patient was maintained on amiodarone infusion. The patient was in and out of atrial fibrillation with some bradycardia. At that juncture, Electrophysiology input was obtained, and initially, there was a plan for possible ablation, but with ongoing amiodarone bebo (more content not included)... Chief Complaint * Patient in office today for EKG due to AFIB. Patient complains of Fatigue and SOB. Medication list was reviewed and updated. Difference being that patient states only taking Xarelto 15 mg daily and she is taking Metoprolol. Med list updated accordingly. * to Dr. Debbie Mac MD for review. * Patient seen in office for wound check. Pacemaker insertion by Dr. Christopher Richardson MD. Patient complains of weakness and tiredness. Patient had no cardiac complaints. Medication verbally reviewed. Site looked at by Vannesa Davidson RN. * To Dr. Christopher Richardson MD to review * To Dr. Debbie Mac MD to review order sent to [facility] for pft ast tsh onlyLESA GOLDEN is being seen for a 15 week follow-up of.LESA GOLDEN is being seen for a 4 month follow-up of. LESA GOLDEN is being seen for a 4-5 month follow-up of.Patient is here today for an EKG ordered by Dr. Debbie Mac MD due to afib. Dr. Jimena Smith MD in suite. Patient has a pacemaker and is here after having a device check and discovering she may be in afib. Medication list was reviewed verbally with patient. Patient does complain of increased shortness of breath and audible wheezing, denies any cold symptoms and states she believes thisis cardiac related. Patient states she felt this way before when she was in afib. EKG was reviewed by Avery Davidson RN prior to discharge. To Dr. Debbie Mac MD for review.* Patient here today for EKG for AFib. She was [place] [facility] [place] and was taken off Metoprolol and started Sotalol 80mg bid. She had a DCC on 09/20. Today she states that she is taking her medications as directed. She does complain of some fatigue. I advised her that the Sotalol may make her feel fatigued but this should resolve in a few weeks. She verbalized understanding. * Reviewed with Arina Davidson RN * TO Dr. Debbie Mac MD LESA GOLDEN is being seen for cath follow up.LESA GOLDEN is being seen for cath follow up.LESA GOLDEN is being seen for cath follow up. Chief Complaint and Reason for Visit Chief Complaint sick sinus syndrome Chief Complaint Dysphagia Dysphagia Dysphagia R19.8 R11.10 R11.2 labs and el Cirrhosis Chief Complaint SSS Chief Complaint SSS trouble breathing/weakness Reason for Visit Atrial fibrillation with rapid ventricular response CHF (congestive heart failure) Dysphagia Dyspnea on exertion Hypertension Sick sinus syndrome Ventricular tachycardia Weakness Chief Complaint SSS trouble breathing/weakness Reason for Visit Atrial fibrillation with rapid ventricular response CHF (congestive heart failure) Dysphagia Dyspnea on exertion HTN (hypertension), benign Hypertension Left ventricular systolic dysfunction, NYHA class 2 Sick sinus syndrome Ventricular tachycardia Weakness Chief Complaint trouble breathing/we akness SSS Reason for Visit Atrial fibrillation with rapid ventricular response CHF (congestive heart failure) Dysphagia Dyspnea on exertion HTN (hypertension), benign Hypertension Left ventricular systolic dysfunction, NYHA class 2 Sick sinus syndrome Ventricular tachycardia Weakness Chief Complaint trouble breathing/we akness passed out Reason for Visit Atrial fibrillation with rapid ventricular response CHF (congestive heart failure) Dysphagia Dyspnea on exertion HTN (hypertension), benign Hypertension Left ventricular systolic dysfunction, NYHA class 2 Sick sinus syndrome Ventricular tachycardia Weakness Atrial fibrillation with rapid ventricular response Syncope Chief Complaint trouble breathing/we akness passed out/ afib Reason for Visit Atrial fibrillation with rapid ventricular response CHF (congestive heart failure) Dysphagia Dyspnea on exertion HTN (hypertension), benign Hypertension Left ventricular systolic dysfunction, NYHA class 2 Sick sinus syndrome Ventricular tachycardia Weakness Anticoagulated Atrial fibrillation with rapid ventricular response Dyspnea on exertion Hypertension Left ventricular systolic dysfunction, NYHA class 2 Syncope Chief Complaint trouble breathing/we akness passed out/ afib r91.1 Reason for Visit Atrial fibrillation with rapid ventricular response CHF (congestive heart failure) Dysphagia Dyspnea on exertion HTN (hypertension), benign Hypertension Left ventricular systolic dysfunction, NYHA class 2 Sick sinus syndrome Ventricular tachycardia Weakness Anticoagulated Atrial fibrillation with rapid ventricular response Dyspnea on exertion Hypertension Left ventricular systolic dysfunction, NYHA class 2 Syncope Chief Complaint trouble breathing/we akness passed out/ afib r91.1 cholelithiasis Reason for Visit Atrial fibrillation with rapid ventricular response CHF (congestive heart failure) Dysphagia Dyspnea on exertion HTN (hypertension), benign Hypertension Left ventricular systolic dysfunction, NYHA class 2 Sick sinus syndrome Ventricular tachycardia Weakness Anticoagulated Atrial fibrillation with rapid ventricular response Dyspnea on exertion Hypertension Left ventricular systolic dysfunction, NYHA class 2 Syncope Chief Complaint trouble breathing/we akness passed out/ afib r91.1 cholelithiasis cholelithiasis Reason for Visit Atrial fibrillation with rapid ventricular response CHF (congestive heart failure) Dysphagia Dyspnea on exertion HTN (hypertension), benign Hypertension Left ventricular systolic dysfunction, NYHA class 2 Sick sinus syndrome Ventricular tachycardia Weakness Anticoagulated Atrial fibrillation with rapid ventricular response Dyspnea on exertion Hypertension Left ventricular systolic dysfunction, NYHA class 2 Syncope Atrial fibrillation, persistent Chief Complaint passed out/ afib r91.1 cholelithiasis cholelithiasis SSS Reason for Visit Anticoagulated Atrial fibrillation with rapid ventricular response Dyspnea on exertion Hypertension Left ventricular systolic dysfunction, NYHA class 2 Syncope Atrial fibrillation, persistent Chief Complaint SSS Heart Failure, HTN, PAF, SSS RUQ, Gallstones, Vomiting Chief Complaint Heart Failure, HTN, PAF, SSS RUQ, Gallstones, Vomiting RUQ, Gallstones, Vomiting Chief Complaint 4 Month Follow Up High Bp SSS Chief Complaint 4 Month Follow Up High Bp SSS sick sinus syndrome Chief Complaint SSS sick sinus syndrome lumbar stenosis w/ nerve claudication Chief Complaint SSS sick sinus syndrome lumbar stenosis w/ nerve claudication SSS Chief Complaint SSS sick sinus syndrome lumbar stenosis w/ nerve claudication SSS 3 month f/U (LEFT MESSAGE TO MOVE APPT) Reason for Visit Chronic heart failur e with preserved ejection fraction (HFpEF) Hypercholesterolemia Lumbar spondylosis Obstructive sleep apnea Paroxysmal atrial fibrillation Primary hypertension Stage 3a chronic kidney disease Reason for Referral Specialty Diagnoses / Procedures Referred By Awaac t Referred To Contact Cardiology Diagnoses Chronic diastolic heart failure (CMS/HCC) Essential hypertension, benign Dyspnea, unspecified type Procedures Transthoracic Echo (TTE) Complete TX ECHO TRANSTHORC R-T 2D W/WO M-MODE REC F-UP/LMTD TX DOP ECHOCARD COLOR FLOW VELOCITY MAPPING TX DOP ECHOCARD PULSE WAVE W/SPECTRAL F-UP/LMTD STD Debbie Mac MD [address] [facility] 2, [address] [place] [phone] Referral ID Status Reason Start Date Expiration Date Visits Requested Visits Authorized [id number] Pending Review Perform Procedure 11/27/2023 1 1 Specialty Diagnoses / Procedures Referred By Awaac t Referred To Contact Cardiology Diagnoses Persistent atrial fibrillation (CMS/HCC) 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) Chronic diastolic heart failure (CMS/HCC) Essential hypertension, benign Procedures Follow Up In Cardiology Debbie Mac MD [address] [facility] 2, [address] [address] Referral ID Status Reason Start Date Expiration Date V isits Requested Visits Authorized [id number] Authorized 05/31/2023 11/27/2023 1 1 Specialty Diagnoses / Procedures Referred By Contac t Referred To Contact Diagnoses Persistent atrial fibrillation (CMS/HCC) 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) Procedures ECG 12 Lead Debbie Mac MD [address] [facility] 2, [address] [place] [address] Referral ID Status Reason Start Date Expiration Date V isits Requested Visits Authorized [id number] Pending Review 05/31/2023 11/27/2023 1 1 Additional Source Comments INFORMATION SOURCE (unrecogn ized section and content) DATE CREATED AUTHOR 08/08/2020 [facility] DATE CREATED AUTHOR AUTHOR'S ORGANIZ ATION 10/10/2021 [facility] DATE CREATED AUTHOR AUTHOR'S ORGANIZ ATION 12/28/2022 [facility] DATE CREATED AUTHOR AUTHOR'S ORGANIZ ATION 01/04/2023 [facility] DATE CREATED AUTHOR AUTHOR'S ORGANIZ ATION 01/30/2023 [facility] DATE CREATED AUTHOR AUTHOR'S ORGANIZ ATION 03/09/2023 [facility] DATE CREATED AUTHOR AUTHOR'S ORGANIZ ATION 09/10/2023 [facility] DATE CREATED AUTHOR AUTHOR'S ORGANIZ ATION 10/24/2023 [facility] DATE CREATED AUTHOR AUTHOR'S ORGANIZ ATION 11/30/2023 [facility] DATE CREATED AUTHOR AUTHOR'S ORGANIZ ATION 12/02/2023 [facility] Care Teams (unrecognized sec tion and content) Team Status: Inactive Member Role Status Dates Chester العلي , DO Primary Care Provider Active Debbie Mac MD Attending Provider Active Team Status: Active Member Role Status Dates Chester العيل , DO Primary Care Provider Active Team Status: Inactive Member Role Status Dates Chester العلي , DO Primary Care Provider Active John Mims MD Attending Provider Active Team Status: Active Member Role Status Dates Chester العلي , DO Primary Care Provider Active Debbie Mac MD Attending Provider Active John Mims MD Referring Provider Active Team Status: Inactive Member Role Status Dates Chester العلي , DO Primary Care Provider Active Debbie Mac MD Attending Provider Active John Mims MD Referring Provider Active Team Status: Active Member Role Status Dates Chester العلي , DO Primary Care Provider Active Luis Lennon , DO Emergency Provider Active Jay Ceja , DO Admit Provider, Attending Pr ovider Active Team Status: Inactive Member Role Status Dates Chester العلي , DO Primary Care Provider Active Luis Lennon , DO Emergency Provider Active Jay Paizm , DO Admit Provider Active Anival Easton MD Attending Provider Active Team Status: Active Member Role Status Dates Chester العلي , DO Primary Care Provider Active Indy Rolon , PA-C Emergency Provider Active Jay Paizm , DO Admit Provider, Attending Pr ovider Active Team Status: Inactive Member Role Status Dates Chester العلي , DO Primary Care Provider Active Indy Rolon , PA-C Emergency Provider Active Jay Paizm , DO Admit Provider Active Stephanie Bennett RN Other Provider Active Javed Dee , DO Other Provider Active Jimena Smith MD Other Provider Active Christopher Richardson MD Other Provider Active Debbie Mac MD Referring Provider, Other Prov ider Active Kenny Porter MD Other Provider Active Dee Quach , [employer] Other Provider Active Bety Haile MD Other Provider Active Anoop Zhang MD Other Provider Active Isra Pedro MD Other Provider Active Cristiana Dior , [facility] Other Provider Active Yessy Ackerman MD Other Provider Active Sam Dukes , DO Attending Provider Active Team Status: Inactive Member Role Status Dates Chester العلي , DO Primary Care Provider, Attending Pr ovider Active Team Status: Inactive Member Role Status Dates Chester العلي , DO Primary Care Provider Active Wilbur Watson , Attending Provider Active [employer] Relationship Specialty Start Date End Date Chester العلي DO [address] [facility] [place] [address] PCP - General 08/20/99 [employer] Relationship Specialty Start Date End Date Chester العلي DO [address] [facility] [place] [address] PCP - General Internal Medicine 08/09/23 [employer] Relationship Specialty Start Date End Date Chester العلي DO [address] [facility] [place] [place] [address] PCP - General Internal Medicine 08/09/23 Team Status: Inactive Member Role Status Dates Chester العلي DO Attending Provider Active Sta rt: July 25, 2023 End: July 25, 2023 Team Status: Inactive Member Role Status Dates Sabina Garcia APRN Attending Provider Active Start: August 19, 2023 End: August 19, 2023 Team Status: Inactive Member Role Status Dates Chester العلي DO Primary Care Provider Active Start: 2023 End: 2023 Debbie Mac MD Attending Provider Active Start: 2023 End: 2023 [employer] Relationship Specialty Start Date End Date Chester العلي DO [address] [facility] [place] [address] PCP - General Internal Medicine 08/09/23 Debbie Mac MD [address] [facility] 2, [facility] [address] [place] [address] Consulting Physician Cardiology 09/10/23 Team Status: Inactive Member Role Status Dates Chester العلي DO Primary Care Provider Active Start: September 24, 2023 End: September 24, 2023 Debbie Mac MD Attending Provider Active Start: September 24, 2023 End: September 24, 2023 Team Status: Inactive Member Role Status Dates Chester العلي DO Primary Care Provider Active Start: November 21, 2023 End: November 21, 2023 Yesica Astudillo MD Attending Provider Active Start: November 21, 2023 End: November 21, 2023 Team Status: Inactive Member Role Status Dates Chester العلي DO Primary Care Provider Active Start: November 22, 2023 End: November 22, 2023 Christopher Richardson MD Attending Provider Active Start: November 22, 2023 End: November 22, 2023 Team Status: Inactive Member Role Status Dates Chester Ball , DO Primary Care Provide r, Attending Provider Active Start: November 27, 2023 End: November 27, 2023 Goals (unrecognized section and content) Goals may be documented in a n alternate sectionNo InformationNo InformationNo InformationGoals may be documented in an alternate sectionGoals may be documented in an alternate sectionNo InformationNo InformationNo InformationNo InformationNo InformationNo InformationNo InformationNo InformationNo InformationNo InformationGoals may be documented in an alternate sectionNo InformationNo InformationNo InformationNo InformationNo InformationNo InformationNo InformationNo InformationNo InformationGoals may be documented in an alternate sectionGoals may be documented in an alternate sectionGoals may be documented in an alternate sectionGoals may be documented in an alternate sectionGoals may be documented in an alternate section REASON FOR VISIT (unrecogniz ed section and content) Reason Comments Follow-up 4m Specialty Diagnoses / Procedures Referred By Ashtyn dobson Referred To Contact Diagnoses Persistent atrial fibrillation (CMS/HCC) 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) Procedures ECG 12 Lead Debbie Mac MD [address] [place] [phone] Referral ID Status Reason Start Date Expiration Date V isits Requested Visits Authorized [id number] Pending Review 05/31/2023 11/27/2023 1 1 Specialty Diagnoses / Procedures Referred By Ashtyn dobson Referred To Contact Cardiology Diagnoses Chronic diastolic heart failure (CMS/HCC) Essential hypertension, benign Dyspnea, unspecified type Procedures Transthoracic Echo (TTE) Complete TX ECHO TRANSTHORC R-T 2D W/WO M-MODE REC F-UP/LMTD TX DOP ECHOCARD COLOR FLOW VELOCITY MAPPING TX DOP ECHOCARD PULSE WAVE W/SPECTRAL F-UP/LMTD STD Debbie Mac MD [address] [place] [address], [address] [address] [address] [place] [phone] Referral ID Status Reason Start Date Expiration Date Visits Requested Visits Authorized [id number] Authorized Perform Procedure 11/27/2023 1 1 Reason Comments Follow-up 4 month Specialty Diagnoses / Procedures Referred By Contac t Referred To Contact Cardiology Diagnoses Persistent atrial fibrillation (CMS/HCC) 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 This clinical summary was aggregated from multiple sources. Caution should be exercised in using it in the provision of clinical care. This summary normalizes information from multiple sources, and as a consequence, information in this document may materially change the coding, format and clinical context of patient data. In addition, data may be omitted in some cases. CLINICAL DECISIONS SHOULD BE BASED ON THE PRIMARY CLINICAL RECORDS. [employer] provides no warranty or guarantee of the accuracy or completeness of information in this document.
[2023-12-17 07:54] VITALS: BP 137/96; PULSE 68; TEMP 36.2; O2SAT 97
[2023-12-17 08:35] VITALS: PULSE 85; PULSE 91; O2SAT 95; O2SAT 96
--- NOTE | 2023-12-17 08:37 | W.PM.PROCNOT ---
Date of procedure: 12/17/23 Pre-op diagnosis: Lumbar stenosis with neurogenic claudication Post-op diagnosis: same as pre-op Procedure: Procedure: Bilateral L4-5 transforaminal epidural steroid injection Medications: Bupivacaine 0.25% 2cc, lidocaine 2% 1cc, kenalog 80mg The patient was seen and examined in the preoperative holding area.? Informed consent was obtained and placed on the chart.? Patient was brought to the medical procedure unit and placed in the prone position where a timeout was completed verifying the correct patient, procedure site, position, and planned special equipment using sterile aseptic technique.? Under direct fluoroscopic visualization a 25-gauge Quincke tipped spinal needle was advanced at level left L4-5 to the designated neural foramen where contrast dye was injected to show adequate spread.? There was no evidence of vascular or adverse uptake.? Epidural spread was appreciated.? The above-mentioned injectate was then placed in a 1.5 mL aliquot preceded by negative aspiration.? The needle was removed. The same procedure, at the same level, was completed on the opposite side. ? Patient was taken to the postprocedural recovery area and monitored for an appropriate length of time before found suitable for discharge in the accompaniment of a responsible adult. Anesthesia: Local Surgeon: Yesica Astudillo Pathology: none sent Condition: stable Disposition: no change
[2023-12-17] MEDS: IOHEXOL 240 MG/ML - 10 ML VIAL 12 MG INJ (08:39)
[2023-12-17] MEDS: BUPIVACAINE HCL 0.25% PF 25 MG/10 ML VIAL INJ (08:39)
[2023-12-17] MEDS: 0.9 % SODIUM CHLORIDE 10 ML SYRINGE - SALINE FLUSH INJ (08:39)
[2023-12-17] MEDS: LIDOCAINE HCL 2% PF 100 MG/5 ML VIAL 2.5 ML INJ (08:40)
[2023-12-17] MEDS: TRIAMCINOLONE ACETONIDE 40 MG/ML VIAL 80 MG INJ (08:40)
--- NOTE | 2023-12-17 09:28 | PC.NURSE ---
After dressing pt attempted to stand and was unable without 2 assist due to leg weakness. Pt was assisted to wheelchair and observed. Pt then stated that her legs felt better. Pt ambulated without assistance. She was taken in wheelchair to car and discharged to family.
== END 2023-12-17 09:07 | disposition home or self-care (01) ==
PROVIDERS: PCP Internal Medicine; Visit Provider Anesthesiology
DX: M48.062 Spinal stenosis, lumbar region with neurogenic claudication (principal)
CPT/HCPCS: 64483; Q9966

== ENCOUNTER 2024-01-16 13:23 | Outpatient (OUT) | payer OTHER, SELFPAY ==
--- NOTE | 2024-01-16 14:06 | PM.CN ---
Consult Note: HPI Data of Consult Patient: known to practice within the last 3 years Consult date: 10/15/23 Requesting Physician: Velvet Jimenez NP Primary Care Provider: Chester Mehta, Consult Narrative Reason for consult: Low back pain, bilateral leg pain Narrative: 83yof who presents for evaluation. Longstanding low back pain with weakness into bilateral legs for many years, now worsening in past several months. Denies provoking event. Currently utilizes [place], which helps mildly. Cannot take NSAIDs because of blood thinner. Has engaged in >6 weeks of provider directed home exercise program, with little benefit. Most recent MRI showing multilevel DDD, lumbar facet arthropathy, and neuroforaminal stenosis. Recent bilateral L4-5 TFESI providing significant improvement in pain and functional ability, pain today 5/10 increasing to 8/10 with standing walking and activity. NATALEE 33% today. Patient no showed to bilateral L5-S1 TFESI. cc:: CC: Velvet Jimenez NP Review of Systems ROS Status of ROS 10 or more systems reviewed and unremarkable except as noted in history and below Respiratory Reports: shortness of breath Musculoskeletal Reports: back pain and extremity pain PFSH PFS Medical History (Updated 12/07/23 @ 08:51 by Maggy Bucio) S/P extracorporeal shock wave therapy ?Z98.890 - Other specified postprocedural states (ICD-10) Kidney stone ?N20.0 - Calculus of kidney (ICD-10) Low back pain ?M54.50 - Low back pain, unspecified (ICD-10) Neck pain ?M54.2 - Cervicalgia (ICD-10) Fibromyalgia ?M79.7 - Fibromyalgia (ICD-10) Hiatal hernia ?K44.9 - Diaphragmatic hernia without obstruction or gangrene (ICD-10) SOB (shortness of breath) ?R06.02 - Shortness of breath (ICD-10) High cholesterol ?E78.00 - Pure hypercholesterolemia, unspecified (ICD-10) Hypertension ?I10 - Essential (primary) hypertension (ICD-10) Surgical History Hx laparoscopic cholecystectomy ?Z90.49 - Acquired absence of other specified parts of digestive tract (ICD-10) S/P hernia repair ?Z98.890 - Other specified postprocedural states (ICD-10) ?Z87.19 - Personal history of other diseases of the digestive system (ICD-10) Meds Home Medications and Allergies Home Medications ?Medication ?Instructions ?Recorded ?Confirmed ?Type acetaminophen 325 mg capsule 325 mg PO Q6H PRN pain 10/15/23 12/17/23 History (Tylenol) atorvastatin 40 mg tablet 40 mg PO DAILY 10/15/23 12/17/23 History calcium 600 mg capsule 600 mg PO QDAY 10/15/23 12/17/23 History cholecalciferol (vitamin D3) 125 125 mcg PO DAILY 10/15/23 12/17/23 History mcg (5,000 unit) tablet (Vitamin D3) cyclobenzaprine 5 mg tablet 5 mg PO BID 10/15/23 12/17/23 History diltiazem HCl 120 mg capsule,24 120 mg PO DAILY 10/15/23 12/17/23 History hr,extended release hydrocodone 10 mg-acetaminophen 1 tab PO DAILY PRN pain 10/15/23 12/17/23 History 325 mg tablet rivaroxaban 15 mg tablet (Xarelto) 15 mg PO QPM 10/15/23 12/17/23 History ropinirole 1 mg tablet 1 mg PO .HS 10/15/23 12/17/23 History sotalol 80 mg tablet (Betapace) 80 mg PO BID 10/15/23 12/17/23 History Allergies Allergy/AdvReac Type Severity Reaction Status Date / Time fentanyl Allergy Severe Verified 12/17/23 08:02 Sulfa (Sulfonamide Allergy Mild ITCHING Verified 12/17/23 08:02 Antibiotics) Exam Narrative Exam Narrative: Psych-alert and oriented x 3. Attentive and appropriate, constitutionally normal, displays normal mood and affect per situation. There are no obvious deficits in memory, reasoning, or intellect.? Skin-no obvious rashes, bruising, erythema noted to the patient's area of pain.? Extremities- extremities are warm with minimal edema and palpable pulses. Lumbar-tenderness to palpation noted in the lumbar spine and paraspinal musculature. Pain is elicited with flexion, extension, and lateral rotation of the lumbar spine. Range of motion is diminished with these motions. Facet loading maneuvers are positive. Strength-noted to be unremarkable with the exception of decreased strength rated at 4 out of 5 in bilateral quadriceps femoris, anterior tibialis. Sensory-no notable sensory deficits in the bilateral lower extremities to touch or pinprick in all dermatomal distributions with the exception to decreased sensation to the bilateral L5,S1 dermatomal distribution Coordination remains intact.? Gait remains non-antalgic. Constitutional Documenting provider has reviewed patient's vital signs: yes Common normals: oriented x3, healthy appearing, alert and well nourished General appearance: cooperative HENMT Common normals: normocephalic, hearing grossly normal bilaterally and moist oral mucous membranes Head and scalp: normocephalic Eye Common normals: PERRL Pupil: PERRL Neck & C-Spine Common normals: full ROM General: normal visual inspection Chest Common normals: inspection of chest normal Respiratory Common normals: no retractions and no use of accessory muscles Effort & inspection: tachypneic Neuro Common normals: oriented x3, CN's II-XII intact bilaterally, moves all extremities, no focal motor deficits, no sensory deficits noted and deep tendon reflexes 2+ bilaterally Sensorium/orientation: alert Motor exam: strength 5/5 throughout and no movement abnormalities noted Psych Common normals: mental status grossly normal, thought process normal, cooperative, affect normal, speech normal and activity/motor behavior normal Speech: normal speech Thought process: normal thought process Results Additional Findings Additional findings: If on a controlled substance or opioids, I have checked an [place] report on this patient and there are no aberrancies noted in the prescribing history.??If on a controlled substance or opioid a drug screen was completed and reviewed within the last year, and if there has not been a drug screen completed we ordered one today to monitor higher risk, state monitored pain medication use. As part of providing excellent, safe, comprehensive care, the following was completed at our patient's visit: 1. A medication reconciliation and review to ensure accurate knowledge of current/active medications, including asking our patients to inform us about any [id number] medications or herbal remedies/nutritional supplements/alternative remedies. 2. A review to specifically ensure our patients have had annual screening for screening for depression, screening for tobacco use, and screening for unhealthy alcohol use. For concerning screenings had a discussion with the patient, provided patient education, and recommended follow-up with primary care provider when appropriate. If patient noted with a risk of falling, they received education on strength, gait, and balance training to prevent future risk of falling. Assessment and Plan Assessment and Plan (1) Lumbar stenosis with neurogenic claudication: (2) Sacroiliitis: (3) SOB (shortness of breath): Assessment and Plan: pulse ox wnl, HR 110 today. visibly short of breath hx of afib. on eliquis Darcy Conklin RN called patients restoration officer as patient reports she thinks she is in a-fib, HR irregular/weak, BP 100/75 faint, SOB on exam. patient denies dizziness lightheadedness falls chest pain/headache. Cardiology team reports they will call patient. I discussed with patient if symptoms worsen to go to ER Plan bilateral L5-S1 TFESI under fluoroscopy f/u with cardiology and PCP f/u 2 weeks after YURI
== END 2024-01-16 13:24 | disposition home or self-care (01) ==
LOC: PM 13:23
PROVIDERS: PCP Internal Medicine; Visit Provider Nurse Practitioner
DX: M48.062 Spinal stenosis, lumbar region with neurogenic claudication (principal); M46.1 Sacroiliitis, not elsewhere classified; R06.02 Shortness of breath
CPT/HCPCS: G0463

== ENCOUNTER 2024-01-28 10:46 | Day surgery (SDC) | payer OTHER, SELFPAY ==
[2024-01-28 10:59] VITALS: BP 140/88; PULSE 71; TEMP 35.9; O2SAT 96
[2024-01-28] MEDS: 0.9 % SODIUM CHLORIDE 10 ML SYRINGE - SALINE FLUSH INJ (11:52)
[2024-01-28] MEDS: LIDOCAINE HCL 2% PF 100 MG/5 ML VIAL INJ (11:53)
[2024-01-28] MEDS: IOHEXOL 240 MG/ML - 10 ML VIAL INJ (11:53)
[2024-01-28] MEDS: BUPIVACAINE HCL 0.25% PF 25 MG/10 ML VIAL INJ (11:53)
[2024-01-28] MEDS: TRIAMCINOLONE ACETONIDE 40 MG/ML VIAL INJ (11:54)
[2024-01-28 11:56] VITALS: BP 161/80; BP 162/77; PULSE 70; PULSE 73; O2SAT 91; O2SAT 95
--- NOTE | 2024-01-28 11:56 | W.PM.PROCNOT ---
Date of procedure: 01/28/24 Pre-op diagnosis: Pain due to lumbar stenosis with neurogenic claudication Post-op diagnosis: same as pre-op Procedure: Procedure: Bilateral L5-S1 transforaminal epidural steroid injection Medications: Bupivacaine 0.25% 2cc, lidocaine 2% 1cc, kenalog 80mg The patient was seen and examined in the preoperative holding area.? Informed consent was obtained and placed on the chart.? Patient was brought to the medical procedure unit and placed in the prone position where a timeout was completed verifying the correct patient, procedure site, position, and planned special equipment using sterile aseptic technique.? Under direct fluoroscopic visualization a 25-gauge Quincke tipped spinal needle was advanced at level left L5-S1 to the designated neural foramen where contrast dye was injected to show adequate spread.? There was no evidence of vascular or adverse uptake.? Epidural spread was appreciated.? The above-mentioned injectate was then placed in a 1.5 mL aliquot preceded by negative aspiration.? The needle was removed. The same procedure, at the same level, was completed on the opposite side. ? Patient was taken to the postprocedural recovery area and monitored for an appropriate length of time before found suitable for discharge in the accompaniment of a responsible adult. Anesthesia: Local Surgeon: Yesica Astudillo Pathology: none sent Condition: stable Disposition: no change
--- NOTE | 2024-01-28 12:38 | PC.NURSE ---
Patient remained in recovery a little longer in wheelchair due to weakness to her RLE. She was back to baseline upon d/c and sister advised to assist her into home out of safety.
== END 2024-01-28 12:23 | disposition home or self-care (01) ==
LOC: SURGOUT 10:47
PROVIDERS: PCP Internal Medicine; Visit Provider Anesthesiology
DX: M48.062 Spinal stenosis, lumbar region with neurogenic claudication (principal)
CPT/HCPCS: 64483; Q9966

== ENCOUNTER 2024-02-07 11:00 | Outpatient (OUT) | payer OTHER, SELFPAY ==
--- NOTE | 2024-02-07 11:41 | P.CN_ITS ---
Consult Note: HPI Data of Consult Patient: known to practice within the last 3 years Consult date: 10/15/23 Requesting Physician: Velvet Jimenez NP Primary Care Provider: Chester Mehta DO Consult Narrative Reason for consult: Low back pain, bilateral leg pain Narrative: 83yof who presents for evaluation. Longstanding low back pain with weakness into bilateral legs for many years, now worsening in past several months. Denies provoking event. Currently utilizes [place], which helps mildly. Cannot take NSAIDs because of blood thinner. Has engaged in >6 weeks of provider directed home exercise program, with little benefit. Most recent MRI showing multilevel DDD, lumbar facet arthropathy, and neuroforaminal stenosis. pain today 4/10 increasing to 4/10 with standing walking and activity. NATALEE 14% today. Patient recently underwent bilateral L5-S1 TFESI with >80% improvement ongoing per patient. Patient presents today with tachycardia and SOB, HR 140 irregular weak and RR 36 labored. Patient was recently in the ER/hospital for SOB and has seen PCP since. cc:: CC: Velvet Jimenez NP Review of Systems ROS Status of ROS 10 or more systems reviewed and unremark able except as noted in history and below Cardiovascular Reports: shortness of breath with exertion Musculoskeletal Reports: back pain PFSH [facility] Medical History (Updated 12/07/23 @ 08:51 by Maggy Bucio) S/P extracorporeal shock wave therapy ?Z98.890 - Other specified postprocedural states (ICD-10) Kidney stone ?N20.0 - Calculus of kidney (ICD-10) Low back pain ?M54.50 - Low back pain, unspecified (ICD-10) Neck pain ?M54.2 - Cervicalgia (ICD-10) Fibromyalgia ?M79.7 - Fibromyalgia (ICD-10) Hiatal hernia ?K44.9 - Diaphragmatic hernia without obstruction or gangrene (ICD-10) SOB (shortness of breath) ?R06.02 - Shortness of breath (ICD-10) High cholesterol ?E78.00 - Pure hypercholesterolemia, unspecified (ICD-10) Hypertension ?I10 - Essential (primary) hypertension (ICD-10) Surgical History Hx laparoscopic cholecystectomy ?Z90.49 - Acquired absence of other specified parts of digestive tract (ICD- 10) S/P hernia repair ?Z98.890 - Other specified postprocedural states (ICD-10) ?Z87.19 - Personal history of other diseases of the digestive system (ICD-10) Meds Home Medications and Allergies Home Medications ?Medication ?Instructions ?Recorded ?Confirmed ?Type acetaminophen 325 mg capsule 325 mg PO Q6H PRN pain 10/15/23 01/28/24 History (Tylenol) atorvastatin 40 mg tablet 40 mg PO DAILY 10/15/23 01/28/24 History calcium 600 mg capsule 600 mg PO QDAY 10/15/23 01/28/24 History cholecalciferol (vitamin D3) 125 125 mcg PO DAILY 10/15/23 01/28/24 History mcg (5,000 unit) tablet (Vitamin D3) cyclobenzaprine 5 mg tablet 5 mg PO BID 10/15/23 01/28/24 History diltiazem HCl 120 mg capsule,24 120 mg PO DAILY 10/15/23 01/28/24 History hr,extended release hydrocodone 10 mg-acetaminophen 1 tab PO DAILY PRN pain 10/15/23 01/28/24 History 325 mg tablet rivaroxaban 15 mg tablet (Xarelto) 15 mg PO QPM 10/15/23 01/28/24 History ropinirole 1 mg tablet 1 mg PO .HS 10/15/23 01/28/24 History sotalol 80 mg tablet (Betapace) 80 mg PO BID 10/15/23 01/28/24 History Allergies Allergy/AdvReac Type Severity Reaction Status Date / Time fentanyl Allergy Severe Verified 02/07/24 11:46 Sulfa (Sulfonamide Allergy Mild ITCHING Verified 02/07/24 11:46 Antibiotics) Exam Constitutional Documenting provider has reviewed patient's vital signs: yes Common normals: oriented x3, healthy appearing, alert and well nourished General appearance: disheveled HENMT Common normals: normocephalic, hearing grossly normal bilaterally and moist oral mucous membranes Head and scalp: normocephalic Eye Common normals: PERRL Pupil: PERRL Neck & C-Spine Common normals: full ROM General: normal visual inspection Chest Common normals: inspection of chest normal Respiratory Common normals: no retractions and no use of accessory muscles Effort & inspection: labored Cardio Rate: tachycardic and other (irregular ) Back & Pelvis Lumbar spine/lower back: ROM limited, pain with ROM and straight leg raise negative bilaterally Sacroiliac joints: SI joints normal Extremity Common normals: normal to inspection and full ROM Neuro Common normals: oriented x3, CN's II-XII intact bilaterally, moves all extremities, no focal motor deficits, no sensory deficits noted and deep tendon reflexes 2+ bilaterally Sensorium/orientation: alert Gait (neuro): normal gait Motor exam: no movement abnormalities noted and strength abnormal (4/5 BLE ) Psych Common normals: mental status grossly normal, thought process normal, cooperative, affect normal, speech normal and activity/motor behavior normal Speech: normal speech Thought process: normal thought process Results Additional Findings Additional findings: If on a controlled substance or opioids, I have checked an [place] report on this patient and there are no aberrancies noted in the prescribing history.??If on a controlled substance or opioid a drug screen was completed and reviewed within the last year, and if there has not been a drug screen completed we ordered one today to monitor higher risk, state monitored pain medication use. As part of providing excellent, safe, comprehensive care, the following was completed at our patient's visit: 1. A medication reconciliation and review to ensure accurate knowledge of current/active medications, including asking our patients to inform us about any [id number] medications or herbal remedies/nutritional supplements/alternative remedies. 2. A review to specifically ensure our patients have had annual screening for screening for depression, screening for tobacco use, and screening for unhealthy alcohol use. For concerning screenings had a discussion with the patient, provided patient education, and recommended follow-up with primary care provider when appropriate. If patient noted with a risk of falling, they received education on strength, gait, and balance training to prevent future risk of falling. Assessment and Plan Assessment and Plan (1) Lumbar stenosis with neurogenic claudication: (2) Sacroiliitis: (3) SOB (shortness of breath): Plan f/u 3 months, YURI providing >80% improvement continue gabapentin 100mg HS at the end of today's visit while we were calling PCP to discuss SOB and irregular heart rate patient reported chest heaviness and jaw pain. patient going to ER for evaluation.
== END 2024-02-07 11:01 | disposition home or self-care (01) ==
LOC: PM 11:01
PROVIDERS: PCP Internal Medicine; Visit Provider Nurse Practitioner
DX: M48.062 Spinal stenosis, lumbar region with neurogenic claudication (principal); M46.1 Sacroiliitis, not elsewhere classified; R06.02 Shortness of breath
CPT/HCPCS: G0463

== ENCOUNTER 2024-02-07 11:41 | Observation (INO) | payer OTHER, SELFPAY ==
[2024-02-07] VITALS (29 sets, daily range): BP systolic 90–153; BP diastolic 68–109; PULSE 86–154; TEMP 36.3–37.2; O2SAT 94–98; BMI 30.3; BMI 31.3
--- NOTE | 2024-02-07 11:53 | XR_ITS ---
The [address] [address] Patient Name: AUSTIN GOLDEN MRN: [id number] date: 1940 Sex: F Assigned Patient Location: ER Current Patient Location: ER Accession/Order Number: [id number] Exam Date: 02/07/2024 12:22 Report Date: 02/07/2024 12:40 At the request of: DENAE SEE Procedure: XR chest 1V EXAMINATION: XR chest 1V HISTORY: SOB COMPARISON: XR chest 01/03/2023 FINDINGS: LUNGS: No significant pulmonary parenchymal abnormalities. VASCULATURE: No increased pulmonary vasculature. PLEURA: No pneumothorax, effusion, or pleural thickening. CARDIAC: Suspect borderline cardiomegaly. Stable cardiac pacer. MEDIASTINUM: No visible mass or adenopathy. BONES: No fracture or visible bone lesion. OTHER: Negative. XR/XR chest 1V IMPRESSION: 1. No acute cardiopulmonary process. Electronically authenticated by: JUANA MICHAELS Date: 02/07/2024 12:40
--- NOTE | 2024-02-07 11:53 | ECG_ITS ---
The [facility] Test Date: 2024-02-07 Pat Name: AUSTIN GOLDEN Department: Room: - Gender: Female Signaler: : 1940 Requested By: JAZMIN العلي Order Number: [id number] Reading MD: JAZMIN العلي Measurements Intervals [place] Rate: 154 P: 90 [place]: 138 QRS: 4 QRSD: 104 T: 163 QT: 322 QTc: 409 Interpretive Statements Atrial fibrillation with rapid ventricular response Low voltage across the precordium 5234 Left ventricular hypertrophy with repolarization abnormality 9150 abnormal ECG Electronically Signed On 02-07-2024 21:57:30 EDT by JAZMIN العلي
--- NOTE | 2024-02-07 11:54 | ED.SOB1 ---
HPI - SOB/Dyspnea General Chief Complaint: Shortness of Breath/Dyspnea Stated Complaint: SOB, CHEST PAIN Time Seen by Provider: 02/07/24 11:48 Source: patient Mode of arrival: Wheelchair Limitations: no limitations History of Present Illness HPI Narrative: 83-year-old female presents for shortness of breath. She has been feeling this way for few weeks. She has been taking all of her medications including her Cardizem. No fever or cough. She has a history of atrial fibrillation and sees a economic specialist. Exertion seems to make it worse. She does not complain of leg swelling. Related Data Home Medications ?Medication ?Instructions ?Recorded ?Confirmed acetaminophen 325 mg capsule 325 mg PO Q6H PRN pain 10/15/23 02/07/24 (Tylenol) atorvastatin 40 mg tablet 40 mg PO DAILY 10/15/23 02/07/24 calcium 600 mg capsule 600 mg PO QDAY 10/15/23 02/07/24 cholecalciferol (vitamin D3) 125 125 mcg PO DAILY 10/15/23 02/07/24 mcg (5,000 unit) tablet (Vitamin D3) diltiazem HCl 120 mg capsule,24 120 mg PO DAILY 10/15/23 02/07/24 hr,extended release rivaroxaban 15 mg tablet (Xarelto) 15 mg PO QPM 10/15/23 02/07/24 ropinirole 1 mg tablet 1 mg PO .HS 10/15/23 02/07/24 sotalol 80 mg tablet (Betapace) 80 mg PO BID 10/15/23 02/07/24 escitalopram oxalate 10 mg tablet 10 mg PO .QHS 02/07/24 02/07/24 fluocinonide 0.05 % topical See Rx Instructions topical 02/07/24 02/07/24 solution .COMPLEX furosemide 20 mg tablet 20 mg PO .QD 02/07/24 02/07/24 Allergies Allergy/AdvReac Type Severity Reaction Status Date / Time fentanyl Allergy Severe Verified 02/07/24 11:46 Sulfa (Sulfonamide Allergy Mild ITCHING Verified 02/07/24 11:46 Antibiotics) Review of Systems ROS Narrative A ten point review of systems is negative except as noted above. [facility] Medical History (Updated 02/07/24 @ 13:27 by Jordi Barragan MD) S/P extracorporeal shock wave therapy ?Z98.890 - Other specified postprocedural states (ICD-10) Kidney stone ?N20.0 - Calculus of kidney (ICD-10) Low back pain ?M54.50 - Low back pain, unspecified (ICD-10) Neck pain ?M54.2 - Cervicalgia (ICD-10) Fibromyalgia ?M79.7 - Fibromyalgia (ICD-10) Hiatal hernia ?K44.9 - Diaphragmatic hernia without obstruction or gangrene (ICD-10) SOB (shortness of breath) ?R06.02 - Shortness of breath (ICD-10) High cholesterol ?E78.00 - Pure hypercholesterolemia, unspecified (ICD-10) Hypertension ?I10 - Essential (primary) hypertension (ICD-10) Surgical History Hx laparoscopic cholecystectomy ?Z90.49 - Acquired absence of other specified parts of digestive tract (ICD-10) S/P hernia repair ?Z98.890 - Other specified postprocedural states (ICD-10) ?Z87.19 - Personal history of other diseases of the digestive system (ICD-10) Exam Narrative Exam Narrative: Nurses note and vital signs reviewed and patient is not hypoxic. General: The patient appears well and in no apparent distress. Patient is resting comfortably on cart. Skin: Warm, dry, no pallor noted. There is no rash noted. Head: Normocephalic, atraumatic Eye: Normal conjunctiva, no drainage Ears, Nose, Mouth, and Throat: oral mucosa is moist. Nares patent. Cardiovascular: Irregularly irregular and tachycardic Respiratory: Patient is in no distress, no accessory muscle use, lungs are clear to auscultation, no wheezing, rales or rhonchi Back: non-tender GI: Soft and nontender Musculoskeletal: The patient has no evidence of calf tenderness, no pitting edema, symmetrical pulses noted bilaterally Neurological: A&O, normal speech Psychiatric: Cooperative Constitutional Vital Signs, click to edit/add: Last Vital Signs Temp 99 F 02/07/24 11:46 Pulse 124 H 02/07/24 11:46 Resp 20 02/07/24 11:46 BP 139/81 02/07/24 12:45 Pulse Ox 96 02/07/24 11:46 O2 Del Method Room Air 02/07/24 11:46 Course Vital Signs Vital signs: Vital Signs Temperature 99 F 02/07/24 11:46 Pulse Rate 124 H 02/07/24 11:46 Respiratory Rate 20 02/07/24 11:46 Blood Pressure 140/107 H 02/07/24 11:46 Pulse Oximetry 96 02/07/24 11:46 Oxygen Delivery Method Room Air 02/07/24 11:46 Temperature 99 F 02/07/24 11:46 Pulse Rate 124 H 02/07/24 11:46 Respiratory Rate 20 02/07/24 11:46 Blood Pressure 139/81 02/07/24 12:45 Pulse Oximetry 96 02/07/24 11:46 Oxygen Delivery Method Room Air 02/07/24 11:46 MDM - SOB/Dyspnea MDM Narrative Medical decision making narrative: The patient presented with atrial fibrillation with RVR. She was given IV Cardizem bolus and placed on a drip. Initial troponin was 53 and repeat 50. She does not have chest pain or EKG acute findings. She is being admitted to ICU with Cardizem drip. Treatment diagnosis and disposition were discussed with the patient thoroughly. Differential Diagnosis Differential diagnosis: Likely community acquired pneumonia and other (Atrial fibrillation) Lab Data Attestation: I reviewed the patient's lab results. Labs: Lab Results 02/07/24 02/07/24 Range/Units 11:55 13:30 WBC 18.4 H (4.0-11.0) 10^3/uL RBC 4.94 (4.20-5.40) 10^6/uL Hgb 15.3 (12.0-16.0) g/dL Hct 46.3 (36.0-48.0) % MCV 93.7 (81.0-99.0) fL MCH 31.0 (26.7-34.0) pg MCHC 33.0 (29.9-35.2) g/dL RDW 14.1 (11.0-15.0) % Plt Count 260 (150-450) 10^3/uL MPV 10.1 (9.5-13.5) fL Neut % (Auto) 87.3 H (43.0-75.0) % Lymph % (Auto) 5.4 L (20.5-60.0) % [place] % (Auto) 5.4 (1.7-12.0) % Eos % (Auto) 0.2 L (0.9-7.0) % Baso % (Auto) 0.1 L (0.2-2.0) % Neut # (Auto) 16.1 H (1.4-6.5) 10^3/uL Lymph # (Auto) 1.0 L (1.2-3.8) 10^3/uL [place] # (Auto) 1.0 H (0.3-0.8) 10^3/uL Eos # (Auto) 0.0 (0.0-0.7) 10^3/uL Baso # (Auto) 0.0 (0.0-0.1) 10^3/uL Abs Immat Gran (auto) 0.29 H (0.00-0.03) 10^3/uL Imm/Tot Granulo (auto) 1.6 H (0.0-0.5) % Sodium 137 (136-145) mmol/L Potassium 4.6 (3.5-5.1) mmol/L Chloride 104 (98-107) mmol/L Carbon Dioxide 25.4 (21.0-32.0) mmol/L Anion Gap 12.2 BUN 35.0 H (7.0-18.0) mg/dL Creatinine 1.03 H (0.55-1.02) mg/dL Est GFR ( Amer) >60 (>=60) Est GFR (Non-Af Amer) 51 L (>=60) BUN/Creatinine Ratio 34.0 Glucose 137 H (74-106) mg/dL Calcium 9.3 (8.5-10.1) mg/dL Troponin I High Sens 53.3 H* 50.2 (4.0-51.3) pg/mL Imaging Data Chest x-ray: Radiologist's impression: ITS Impressions Chest X-Ray 02/07/24 11:53 IMPRESSION: 1. No acute cardiopulmonary process. Electronically authenticated by: JUANA MICHAELS Date: 02/07/2024 12:40 ECG Data Attestation: I personally reviewed and interpreted this ECG as follows: (EKG on my interpretation shows A-fib with RVR, rate 154) Critical Care Time Critical Care Time Critical Care Time: Yes Total Critical Care Time: 35 Attestation: Due to the high probability of sudden and clinically significant deterioration in the patient's condition he/she required the highest level of my preparedness to intervene urgently I provided critical care time including documentation time, medication orders and management, reevaluation, vital sign assessment, ordering and reviewing of lab tests, ordering and reviewing of x-ray studies, and admission orders. Aggregate critical care time is 35 minutes including only time during which I was engaged in work directly related to his/her care and did not include time spent treating other patients simultaneously. Discharge Plan Discharge Chief Complaint: Shortness of Breath/Dyspnea Clinical Impression: Atrial fibrillation with RVR Patient Disposition: Admitted As Inpatient Time of Disposition Decision: 13:27 Condition: Fair
[2024-02-07] MEDS: DILTIAZEM HCL 25 MG/5 ML VIAL 10 MG IV (12:03)
[2024-02-07 12:07] LABS: Basophils Percent Auto 0.1 % (0.2-2.0); Eosinophils Percent Auto 0.2 % (0.9-7.0); Hematocrit 46.3 % (36.0-48.0); Hemoglobin 15.3 g/dL (12.0-16.0); Immature Granulocytes Abs Auto 0.29 10^3/uL (0.00-0.03); Immature Granulocytes Pct Auto 1.6 % (0.0-0.5); Lymphocytes Percent Auto 5.4 % (20.5-60.0); Mean Corpuscular Volume 93.7 fL (81.0-99.0); Mean Platelet Volume 10.1 fL (9.5-13.5); Monocytes Percent Auto 5.4 % (1.7-12.0); Neutrophils Absolute Auto 16.1 10^3/uL (1.4-6.5); Neutrophils Percent Auto 87.3 % (43.0-75.0); Platelet Count 260 10^3/uL (150-450); Red Blood Count 4.94 10^6/uL (4.20-5.40); Red Cell Distribution Width 14.1 % (11.0-15.0); White Blood Count 18.4 10^3/uL (4.0-11.0)
[2024-02-07 12:32] LABS: Anion Gap 12.2; Calcium 9.3 mg/dL (8.5-10.1); Carbon Dioxide 25.4 mmol/L (21.0-32.0); Chloride 104 mmol/L (98-107); Estimated GFR (African America >60 (>=60); Estimated GFR (Non-African Ame 51 (>=60); Glucose 137 mg/dL (74-106); Potassium 4.6 mmol/L (3.5-5.1); Sodium 137 mmol/L (136-145)
[2024-02-07 12:35] LABS: Troponin I High Sensitivity 53.3 pg/mL (4.0-51.3)
[2024-02-07] MEDS: dilTIAZem HCL 125 MG in 0.9 % SODIUM CHLORIDE 100 ML IV (12:35)
[2024-02-07 13:55] LABS: Troponin I High Sensitivity 50.2 pg/mL (4.0-51.3)
--- NOTE | 2024-02-07 14:35 | ECG_ITS ---
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
[2024-02-07 14:57] LABS: Alanine Aminotransferase 38 U/L (14-59); Albumin Level 3.1 g/dL (3.4-5.0); Alkaline Phosphatase 107 U/L (46-116); Aspartate Amino Transferase 19 U/L (15-37); Bilirubin Direct 0.2 mg/dL (0.0-0.2); Bilirubin Total 0.7 mg/dL (0.2-1.0); Globulin 3.2 g/dL; Total Protein 6.3 g/dL (6.4-8.2)
--- NOTE | 2024-02-07 15:27 | P.HP_ITS ---
<Statement entered by Keira Gandhi, DO - 02/08/24 08:14> This documentation has been reviewed and approved. I have also seen and examined patient at the time of admission and agree with cards consult, assessments and plan of care. HPI H&P: HPI History of Present Illness Chief complaint: SOB, CHEST PAIN A-Fib w/RVR Narrative: 02/07/24 3110 This is an 83-year-old female patient with a past medical history as outlined below including A-fib managed by cardiology, chronic back pain managed by the pain clinic with spinal injections, chronic diaphragmatic hernia with frequent vomiting, hypertension, and hyperlipidemia; who reported to the ED directly from the pain clinic today complaining of shortness of breath for the last 2 weeks. The patient was at the pain clinic for a spinal injection, but they noted that she was very short of breath and then she developed a brief episode of burning epigastric/substernal chest discomfort that radiated up to her right jaw. This episode lasted no more than 15 minutes and has completely resolved. She was then brought to the ED for further evaluation. Workup in the ED revealed initial hypertension (140/107), tachycardia (BPM 154 on EKG), and dyspnea on exam. A chest x-ray was unremarkable. An EKG revealed marked sinus arrhythmia/A-fib with possible TN of indeterminate age. Labs revealed mildly elevated initial troponin (53.3, then 50.2 on repeat), leukocytosis (18.4), and all other labs were unremarkable. No foci of infection was identified in the ED. She is being admitted to the hospitalist service in observation for A-fib with RVR and is currently on a cardizem gtt after IVP cardizem did not control her HR. At time of my exam the patient is sitting up on the side of the ED cart. She is notably dyspneic especially with prolonged conversation. She reports that her p.o. Cardizem was increased by her armament installer from 120 mg to 180 mg a couple of months ago. She was admitted to [facility] on 01/19/2024 (she cannot remember the reason for admission) and her Cardizem was reduced back down to 120 mg on discharge from that admission. She admits that she has been short of breath since discharge and her home BP machine has shown her heart rate running in the 140s ever since discharge from [facility]. She states I thought it would just go away . The patient had an appointment scheduled for tomorrow with GI due to her known diaphragmatic hernia and frequent vomiting. She has rescheduled that appointment for another time due to her re-admission to the hospital. We will attempt to obtain records from [facility] regarding her recent admission. ADDENDUM 1645: Records from [facility] obtained. The pt was admitted there from 01/18/24-01/20/24 for A-fib w/ RVR. Her home Betapace was increased from 80 mg BID to 120 mg BID and her home Diltiazem CD was decreased back to 120 mg daily (from 180 mg) by cardiology at discharge. TSH and Mag were noted to be WNL during that admission. We will hold further PO doses of cardizem, continue the cardizem gtt, and consult cardiology for management of her refractory A-fib w/ RVR. Opioid HPI Opioid Management Most Recent Pain and Opioid Data: Last Pain Scale 3 01/28/24 10:59 Last Pain Assessment 02/07/24 15:46 Last ORT Total Score 1 02/07/24 15:37 Last ORT Risk Category Low Risk 02/07/24 15:37 Review of Systems ROS Status of ROS 10 or more systems reviewed and unremark able except as noted in history and below [facility] Medical History (Updated 02/07/24 @ 16:08 by Stephanie Cavazos NP) Diastolic heart failure ?I50.30 - Unspecified diastolic (congestive) heart failure (ICD-10) Depression ?F32.A - Depression, unspecified (ICD-10) Diaphragmatic hernia ?K44.9 - Diaphragmatic hernia without obstruction or gangrene (ICD-10) Lumbar stenosis with neurogenic claudication ?M48.062 - Spinal stenosis, lumbar region with neurogenic claudication (ICD- 10) Lumbar spondylosis ?M47.816 - Spondylosis without myelopathy or radiculopathy, lumbar region (ICD-10) Sacroiliitis ?M46.1 - Sacroiliitis, not elsewhere classified (ICD-10) S/P extracorporeal shock wave therapy ?Z98.890 - Other specified postprocedural states (ICD-10) Kidney stone ?N20.0 - Calculus of kidney (ICD-10) Low back pain ?M54.50 - Low back pain, unspecified (ICD-10) Neck pain ?M54.2 - Cervicalgia (ICD-10) Fibromyalgia ?M79.7 - Fibromyalgia (ICD-10) Hiatal hernia ?K44.9 - Diaphragmatic hernia without obstruction or gangrene (ICD-10) SOB (shortness of breath) ?R06.02 - Shortness of breath (ICD-10) High cholesterol ?E78.00 - Pure hypercholesterolemia, unspecified (ICD-10) Hypertension ?I10 - Essential (primary) hypertension (ICD-10) Surgical History Hx laparoscopic cholecystectomy ?Z90.49 - Acquired absence of other specified parts of digestive tract (ICD- 10) S/P hernia repair ?Z98.890 - Other specified postprocedural states (ICD-10) ?Z87.19 - Personal history of other diseases of the digestive system (ICD-10) Social History Highest level of school completed/degree received: high school graduate Meds Home Medications and Allergies Home Medications ?Medication ?Instructions ?Recorded ?Confirmed ?Type acetaminophen 325 mg capsule 325 mg PO Q6H PRN pain 10/15/23 02/07/24 History (Tylenol) atorvastatin 40 mg tablet 40 mg PO .QHS 10/15/23 02/07/24 History calcium 600 mg capsule 600 mg PO QDAY 10/15/23 02/07/24 History cholecalciferol (vitamin D3) 125 125 mcg PO DAILY 10/15/23 02/07/24 History mcg (5,000 unit) tablet (Vitamin D3) rivaroxaban 15 mg tablet (Xarelto) 15 mg PO .qhs 10/15/23 02/07/24 History ropinirole 1 mg tablet 1 mg PO .HS 10/15/23 02/07/24 History diltiazem HCl 120 mg 120 mg PO DAILY 02/07/24 02/07/24 History capsule,extended release 24 hr escitalopram oxalate 10 mg tablet 10 mg PO .QHS 02/07/24 02/07/24 History fluocinonide 0.05 % topical See Rx Instructions topical 02/07/24 02/07/24 History solution .COMPLEX furosemide 20 mg tablet 20 mg PO .QD 02/07/24 02/07/24 History sotalol 120 mg tablet 120 mg PO BID 02/07/24 02/07/24 History Allergies Allergy/AdvReac Type Severity Reaction Status Date / Time fentanyl Allergy Severe Verified 02/07/24 11:46 Sulfa (Sulfonamide Allergy Mild ITCHING Verified 02/07/24 11:46 Antibiotics) Exam Constitutional Vital Signs, click to edit/add: Last Vital Signs Temp 99 F 02/07/24 11:46 Pulse 93 H 02/07/24 13:53 Resp 23 H 02/07/24 13:53 BP 110/89 02/07/24 14:00 Pulse Ox 97 02/07/24 13:53 O2 Del Method Room Air 02/07/24 11:46 Common normals: no apparent distress, oriented x3, alert and well nourished General appearance: cooperative Orientation/consciousness: Yes awake HENMT Common normals: normocephalic, head/scalp atraumatic, hearing grossly normal bilaterally, external nose normal and moist oral mucous membranes Eye Common normals: PERRL, EOMs intact bilaterally, conjunctivae normal and no scleral icterus Alignment: alignment normal Eyelid: eyelids normal Neck & C-Spine Common normals: full ROM, supple and no JVD Chest Common normals: inspection of chest normal Chest: symmetrical chest wall rise Respiratory Common normals: no retractions, no use of accessory muscles and clear to auscultation bilaterally Effort & inspection: tachypneic; not able to speak in complete sentences (4-5 word sentences. Dyspnea increases w/ prolonged conversation) Cardio Common normals: no JVD, S1 normal heart sound, S2 normal heart sound, no gallops, no clicks, no murmurs, no rub and peripheral pulses 2+ throughout Rate: tachycardic (95-125) Rhythm: abnormal rhythm irregularly irregular (A-fib w/ RVR) GI Common normals: Normal to inspection, nondistended, normoactive bowel sounds present, soft to palpation, non-tender, no hepatosplenomegaly, no masses and no bruits Bladder/kidney exam: bladder normal to palpation Back & Pelvis Common normals: thoracic and lumbar spine normal to inspection Extremity Common normals: normal capillary refill and no pedal edema General: normal exam except as noted; no clubbing and no cyanosis Neuro Jay Coma Scale: GCS not evaluated Common normals: CN's II-XII intact bilaterally, moves all extremities, no focal motor deficits and no sensory deficits noted Speech: speech normal Motor exam: strength 5/5 throughout Psych Common normals: mental status grossly normal, thought process normal, affect normal and activity/motor behavior normal Results Labs Labs: Short CBC 02/07/24 Range/Units 11:55 WBC 18.4 H (4.0-11.0) 10^3/uL Hgb 15.3 (12.0-16.0) g/dL Hct 46.3 (36.0-48.0) % Plt Count 260 (150-450) 10^3/uL BMP 02/07/24 11:55 Sodium 137 Potassium 4.6 Chloride 104 Carbon Dioxide 25.4 BUN 35.0 H Creatinine 1.03 H Glucose 137 H Calcium 9.3 Liver Function 02/07/24 Range/Units 13:30 Total Bilirubin 0.7 (0.2-1.0) mg/dL Direct Bilirubin 0.2 (0.0-0.2) mg/dL AST 19 (15-37) U/L ALT 38 (14-59) U/L Alkaline Phosphatase 107 (46-116) U/L Albumin 3.1 L (3.4-5.0) g/dL Pulse Oximetry Attestation: I have reviewed the pertinent pulse oximetry results. Imaging Chest x-ray: Attestation: I have reviewed the pertinent imaging results. Radiologist's impression: IMPRESSION: 1. No acute cardiopulmonary process. Assessment and Plan Assessment and Plan (1) Atrial fibrillation with RVR: Assessment and Plan: Acute * Adm observation * Continue Cardizem gtt for now * Obtain medical records from [facility] regarding recent admission - discover reason for decreasing her cardizem dose * Give additional 120 mg Cardizem CD now and wean off Cardizem gtt as soon as possible - HOLD, Defer to Cardiology management * Plan to increase daily cardizem dose back to 180 mg pending receipt of documentation from [facility] * Continue home Sotalol * Continue home Xarelto for CVA prevention * Tele monitoring * Daily CBC, CMP (2) Elevated troponin I level: Assessment and Plan: Acute * Mild elevation on initial lab in ED - 53.3 * Down to 50 on repeat lab - WNL * Suspect secondary to demand ischemia from tachycardia * Consider further cardiac work up if chest pain (3) Leukocytosis: Assessment and Plan: Acute * Unclear etiology * Denies cough, fever, dysuria. * CXR clear * Add on lipase and liver panel * Add on UA * No antibiotics at this time unless foci of infection is identified * CBC in AM Qualifiers: Leukocytosis type: unspecified Qualified Code(s): D72.829 - Elevated white blood cell count, unspecified (4) Diaphragmatic hernia: Assessment and Plan: Chronic * Follows outpatient w/ GI * appointment for 02/08/24 has been rescheduled (5) Lumbar stenosis with neurogenic claudication: Assessment and Plan: Chronic * Follows outpatient with the pain clinic for spinal injections (6) High cholesterol: Assessment and Plan: Chronic * Continue home statin (7) Hypertension: Assessment and Plan: Chronic * Continue home diltiazem, sotalol Qualifiers: Hypertension type: primary hypertension Qualified Code(s): I10 - Essential (primary) hypertension (8) Depression: Assessment and Plan: Chronic * Continue home lexapro (9) Diastolic heart failure: Assessment and Plan: Chronic * Continue home lasix
[2024-02-07] MEDS: DILTIAZEM HCL 60 MG TABLET PO (17:37)
--- NOTE | 2024-02-07 18:57 | PC.NURSE ---
patient appears to be in sinus rhythm at this time. EKG performed and cardizem drip paused.
[2024-02-07 19:35] LABS: Bilirubin Urine NEGATIVE (NEGATIVE); Blood Urine NEGATIVE (NEGATIVE); Clarity Urine CLEAR (CLEAR); Color Urine YELLOW (YELLOW); Glucose Urine UA NEGATIVE (NEGATIVE); Ketones Urine NEGATIVE (NEGATIVE); Leukocyte Esterase Urine NEGATIVE (NEGATIVE); Nitrite Urine NEGATIVE (NEGATIVE); Protein Urine TRACE mg/dL (NEG/TRACE); Specific Gravity Urine >=1.030 (1.005-1.025)
[2024-02-07 19:40] LABS: Urine Microscopic Indicated NO
[2024-02-07] MEDS: SOTALOL HCL 80 MG TABLET 120 MG PO (21:14)
[2024-02-07] MEDS: ROPINIROLE HCL 1 MG TABLET PO (21:15)
[2024-02-07] MEDS: RIVAROXABAN 10 MG TABLET 15 MG PO (21:15)
[2024-02-07] MEDS: ATORVASTATIN CALCIUM 40 MG TABLET PO (21:15)
[2024-02-07] MEDS: ESCITALOPRAM 10 MG TABLET PO (21:16)
--- NOTE | 2024-02-07 22:14 | ECG_ITS ---
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
[2024-02-08] VITALS (23 sets, daily range): BP systolic 133–160; BP diastolic 77–92; PULSE 70–98; TEMP 36.6–36.7; O2SAT 93–98
[2024-02-08] MEDS: DILTIAZEM HCL 60 MG TABLET PO (00:43)
--- NOTE | 2024-02-08 05:00 | CA_ITS ---
Patient Name: AUSTIN GOLDEN MR#: [id number] : 1940 Exam Date: 02/08/2024 Ordering Doctor: AARON URBANO ECHOCARDIOGRAM REPORT PROCEDURE: CA ECHO DOPPLER COMPLETE INDICATIONS: a-fib w/ RVR, hypertension, pacemaker COMPARISON: None. DESCRIPTION: COMPLETE ECHOCARDIOGRAM Real-time transthoracic echocardiography with 2D, M-mode, spectral and color flow Doppler performed. QUALITY: Technical quality was adequate. LEFT VENTRICLE: Normal chamber size. Borderline left ventricular hypertrophy. Normal systolic function. LV EF: Normal left ventricular ejection fraction, (55%). DIASTOLIC: ATRIAL SEPTUM: LEFT ATRIUM: Moderate dilatation. RIGHT ATRIUM: Mild dilatation. RIGHT VENTRICLE: Normal chamber size. Normal systolic function. Pacer wire present. TRICUSPID VALVE: Not well visualized. No stenosis with trivial regurgitation. No evidence of pulmonary hypertension. RVSP 21 mmHg MITRAL VALVE: Moderately thickened with decreased mobility. No evidence of mitral valve stenosis. Mild mitral annular calcification. Mild mitral regurgitation. AORTIC VALVE: Normal aortic valve. Thickened aortic valve. Normal leaflet mobility. No evidence of aortic valve stenosis. Trivial aortic regurgitation. AORTIC ROOT: Normal diameter and appearance. PULMONIC VALVE: Normal thickness and mobility. No stenosis. No regurgitation. PERICARDIUM: No evidence of pericardial effusion. IVC: Collapses with inspirations. PLEURA: CONCLUSION: 1. Normal ventricular systolic function. LVEF is 55%. 2. Mild to moderate biatrial dilatation. 3. Mild mitral regurgitation. 4. Normal right-sided pressures. Adult Echocardiography Procedure Report Left Ventricle LVEDD (3.7 - 5.6 cm): 3.09 cm LVESD (2.2 - 4.0 cm): 1.73 cm LVIVS thickness (0.6 - 1.2 cm): 1.10 cm LVPW thickness (0.5 - 1.0 cm): 1.02 cm e': 0.07 m/s E - e': 12.41 LVOT Max Gradient: 1.48 mm[Hg] LVOT Area (cm2): 0.61 m/s Peak Velocity (LVOT): 0.61 m/s Mean Velocity (LVOT): 0.42 m/s LVOT Diameter 2.15 cm Left Atrium LA Volume Index (2D A2C): 35.94 ml/m2 Left Atrium Systolic Dimension: 2.81 cm Mitral Valve MV E to A Ratio: 3.34 Mitral Valve A-Wave Peak Velocity: 0.26 m/s Mitral Valve E-Wave Peak Velocity: 0.86 m/s Right Ventricle Aorta AO Root Diam: 2.53 cm Aortic Valve AoV Area (Peak Kavon): 3.00 cm2, 3.07 cm2 AoV Area (VTI): 2.81 cm2, 2.81 cm2 Peak Velocity(Antegrade Flow): 0.72 m/s, 0.74 m/s Peak Gradient(Antegrade Flow): 2.07 mm[Hg], 2.18 mm[Hg] Mean Velocity(Antegrade Flow): 0.57 m/s, 0.56 m/s Mean Gradient(Antegrade Flow): 1.41 mm[Hg], 1.37 mm[Hg] Velocity Time Integral: 13.39 cm, 13.00 cm Tricuspid Valve Peak Velocity (Regurgitant Flow): 2.11 m/s, 1.80 m/s, 1.97 m/s, 1.79 m/s, 1.92 m/s Pulmonic Valve Peak Gradient: 2.11 mm[Hg], 1.47 mm[Hg] Right Atrium Dictated by: Vipin Prado M.D. on 02/08/2024 at 13:34 Approved by: Vipin Prado M.D. on 02/08/2024 at 13:37
--- NOTE | 2024-02-08 05:18 | PC.NURSE ---
BP after being up to the bathroom and then returning to bed.
[2024-02-08 05:34] LABS: Basophils Percent Auto 0.1 % (0.2-2.0); Eosinophils Percent Auto 0.2 % (0.9-7.0); Hematocrit 40.7 % (36.0-48.0); Hemoglobin 13.6 g/dL (12.0-16.0); Immature Granulocytes Abs Auto 0.21 10^3/uL (0.00-0.03); Immature Granulocytes Pct Auto 1.6 % (0.0-0.5); Lymphocytes Absolute Auto 0.9 10^3/uL (1.2-3.8); Lymphocytes Percent Auto 6.7 % (20.5-60.0); Mean Corpuscular HGB Conc 33.4 g/dL (29.9-35.2); Mean Corpuscular Hemoglobin 31.1 pg (26.7-34.0); Mean Corpuscular Volume 93.1 fL (81.0-99.0); Mean Platelet Volume 10.4 fL (9.5-13.5); Monocytes Absolute Auto 0.6 10^3/uL (0.3-0.8); Monocytes Percent Auto 4.6 % (1.7-12.0); Neutrophils Absolute Auto 11.2 10^3/uL (1.4-6.5); Neutrophils Percent Auto 86.8 % (43.0-75.0); Platelet Count 204 10^3/uL (150-450); Red Blood Count 4.37 10^6/uL (4.20-5.40); Red Cell Distribution Width 13.9 % (11.0-15.0); White Blood Count 12.9 10^3/uL (4.0-11.0)
[2024-02-08 05:50] LABS: Alanine Aminotransferase 32 U/L (14-59); Albumin Globulin Ratio 0.9; Albumin Level 2.8 g/dL (3.4-5.0); Alkaline Phosphatase 85 U/L (46-116); Anion Gap 9.5; Aspartate Amino Transferase 20 U/L (15-37); BUN Creatinine Ratio 36.6; Bilirubin Total 0.7 mg/dL (0.2-1.0); Carbon Dioxide 27.1 mmol/L (21.0-32.0); Chloride 103 mmol/L (98-107); Estimated GFR (African America >60 (>=60); Estimated GFR (Non-African Ame >60 (>=60); Glucose 122 mg/dL (74-106); Potassium 4.6 mmol/L (3.5-5.1); Sodium 135 mmol/L (136-145); Total Protein 5.8 g/dL (6.4-8.2)
--- OUTSIDE RECORDS SUMMARY | 2024-02-08 06:07 | XMS_ITS | CCD ---
Author Organization [facility] Care Team Providers Care Production Tester Name Role Phone CHESTER العلي Primary Care Unavailable WOO, JELANI Attending Unavailable WOO JELANI Admitting Unavailable SELF, REFERRED Referring Unavailable HI Procedure Practitioner Unavailab SANJUANA Maier AM Surgeon Unavailable TANNER HERRERA Surgeon Unavailable HI Procedure Practitioner Unavailab JELANI Eid Surgeon Unavailable HI Procedure Practitioner Unavailab Chester Buckley E Unavailable Unavailable Unavailable DO Chester العلي Primary Care Provider MD Debbie Mac Attending Provider John Mims Unavailable [phone] DO Chester العلي Primary Care Provider MD [...] Provider MD Bety Haile Other Provider MD [facility] Other Provider MD Isra Pedro Other Provider [facility] Cristiana Rosen Other Provider MD Yessy Ackerman Other Provider DO Sam Dukes Attending Provider Chester العلي Unavailable DO Chester العلي Primary Care Provider DO Luis Lennon Emergency Provider Unavailab DO Jay Milligan Admit Provider MD Anival Easton Attending Provider VINCENT Rolon Emergency Provider ROSA Bennett Other Provider Unavailable DO Javed Dee Other Provider MD Jimena Smith Other Provider MD Christopher Richardson Other Provider MD Debbie Mac Referring Provider MD Kenny Porter Other Provider VIRGINIA Brookena K Other Provider MD Bety Haile Other Provider MD Anoop Zhang Other Provider MD Isra Pedro Other Provider Barby [facility] Cristiana Rosen Other Provider MD Yessy Ackerman Other Provider [phone] DO Sam Dukes Attending Provider [phone] Tyson, DO Briggs Attending Provider Rachel Larios Unavailable DO Wilbur Watson Attending Provider DO Chester العلي Primary Care Provider [phone] DO Jay Ceja Admit Provider MD Debbie [...] Wolf Dyson Consulting Unavailable POLICARO, FARRAH Consulting Unavailable LARIOS, DR RACHEL Hahn Admitting Unavailable BALL, DR BRIGGS Primary Care Damien LARIOS, DR RACHEL Hahn Attending Unavailable HARRIET, DR RACHEL Hahn Consulting DO Chester Botello Primary Care Provider DO Wilbur Watson Attending Provider [phone] Hima Mac, Dr. Chen Referring Unavaila ble Traboulmichael, Dr. Chen Attending Unavaila ble Tyson, Dr. Chester Sanders Primary Care Yasmeenvai labshant Mac, Dr. Chen Referring Unavaila ble Ball, Dr. Chester Sanders Primary Care Unavai lable Jose, Dr. Chen Attending Unavaila ble Jose, Dr. Chen Referring Unavaila ble MITCHELL, MD MAXWELL MOSS Attending Unavailabl e Tyson, Dr. Chester Sanders Primary Care Unalidia العلي, Dr. Chester Sanders Primary [facility] [place] Aleshia Smith, Dr. Jimena Reynolds Attending Yasmeen vailaanselmo Smith, Dr. Jimena Reynolds Attending Yasmeen vailable Tyson, Dr. Chester Sanders Primary [facility] [place] Unavakrysten labshant Smith, Dr. Jimena Reynolds Attending Yasmeen vailaanselmo العلي, Dr. Chester Sanders [facility] [place] Aristeoi richie العلي, Dr. Chester Sanders Primary [facility] [place] Yasmeenvai richie العلي, Dr. Chester Sanders Primary [facility] Yasmeenvai labshant Mac, Dr. Chen Attending Unavaila ble Jose, Dr. Chen Referring Unavaila ble Tyson, Dr. Chester Sanders Primary [facility] [place] Unavai richie العلي, Dr. Chester Sanders Primary [facility] [place] Unavai labshant Mac, Dr. Chen Attending Unavaila ble Tyson, Dr. Chester Sanders [facility] [place] Yasmeenvai labshant العلي, Dr. Chester Sanders [facility] [place] Aristeoi richie Mac, Dr. Chen Attending Unavaila anselmo العلي, Dr. Chester Sanders Primary [facility] [place] Aleshia العلي, Dr. Chester Sanders Primary [facility] Yasmeenvai richie Smith, Dr. Jimena Reynolds Attending Yasmeen vailaanselmo العلي, Dr. Chester Sanders Primary [facility] [place] Aleshia Smith, Dr. Jimena Reynolds Attending Yasmeen vailaanselmo العلي, Dr. Chester Sanders Primary [facility] Unavai lable Ball, Dr. Chester Sanders [facility] Unavai lable Traboulssi, Dr. Chen Attending Unavaila ble Ball, Dr. Chester Sanders [facility] Unavai lable Traboulssi, Dr. Chen Attending Unavaila ble Ball, Dr. Chester Sanders [facility] Unavai lable Traboulssi, Dr. Chen Attending Unavaila ble Ball, Dr. Chester Sanders [facility] Unavai lable Traboulssi, Dr. Chen Attending Unavaila ble Ball, Dr. Chester Sanders [facility] Unavai lable Traboulssi, Dr. Chen Attending Unavaila ble Traboulssi, Dr. Chen Referring Unavaila ble Ball, Dr. Chester Sanders [facility] Unavai lable Traboulssi, Dr. Chen Attending Unavaila ble Ball, Dr. Chester Sanders [facility] Unavai lable Traboulssi, Dr. Chen Attending Unavaila ble Traboulssi, Dr. Chen Referring Unavaila ble Traboulssi, Dr. Chen Referring Unavaila ble Ball, Dr. Chester Sanders [facility] Unavai lable Traboulssi, Dr. Chen Attending Unavaila ble Traboulssi, Dr. Chen Referring Unavaila ble Ball, Dr. Chester Sanders [facility] Unavai lable Traboulssi, Dr. Chen Attending Unavaila ble DO Chester العلي Primary Care Provider MD Debbie Mac Attending Provider Chester العلي DO Primary Care Provider Sabina Garcia Unavailable Chester العلي DO Primary Care Provider DEBBIE MAC Referring Unavailable CHESTER العلي Primary Care Unavailable DO Chester العلي Primary Care Provider MD Debbie Mac Attending Provider Chester العلي DO Primary Care Provider Debbie Mac MD Unavailable [phone] DO Chester العلي Primary Care Provider MD Debbie Mac Attending Provider MD Yesica Astudillo Attending Provider MD Christopher Richardson Attending Provider Wilda MUIR, Andrius Arcos Attending Unavailable Wilda MUIR, Andrius Isrrael Attending Unavailable DESMOND MACIAS Attending Unavailable DO Chester العلي Primary Care Provider VINCENT Mendez Emergency Provider [phone] MD Izzy Capps Admit Provider MD Izzy Capps Attending Provider ROSA Bennett Other Provider Unavailable DO Javed Dee Other Provider MD Jimena Smith Other Provider MD Christopher Richardson Other Provider MD Debbie Mac Other Provider MD Kenny Porter Other Provider VIRGINIA Quach Other Provider MD Bety Haile Other Provider MD Anoop Zhang Other Provider MD Isra Pedro Other Provider Barby [facility] Cristiana Rosen Other Provider [phone] Chester العلي DO Primary Care Provider Debbie Mac Attending Unavailable Chester العلي Primary Care Unavailable Ivy Macf Admitting Unavailable Chester العلي Primary Care Unavailable Ivy Macf Admitting Unavailable Trabnuria, Mochemohaf Attending Unavailable Chester العلي Primary Care Unavailable Giedraitis, Andrius Admitting Unavailable Giraegan, Andrius Attending Unavailable Wilbur Watson Attending Unavailable Tyson, Chester Primary Care Unavailable Wilbur Watson Admitting Unavailable Wilbur Watson Attending Unavailable Ball, Chester Primary Care Unavailable Wilbur Watson Admitting Unavailable Traboulssi, Mourhaf Admitting Unavailable Traboulssi, Mourhaf Attending Unavailable Ball, Chester Primary Care Unavailable Ball, Chester Primary Care Unavailable Stephanie Bennett Consulting Unavailable Wassouf, Izzy Admitting Unavailable WasIzzy kumar Attending Unavailable Javed Dee Consulting Unavailable Jimena Smith Consulting Unavailable HarishuinChristopher nash Consulting Unavail able Traboulssi, Mourhaf Consulting Unavailable Kenny Porter Consulting Unavailab Dee Jacobs Consulting Unavailable Haile, Bety Consulting Unavailable Vicente, Anoop Badillo Consulting Unavailab shant Pedro, Isra Consulting Unavailable Cristiana Dior Consulting Unavailable Ball, Chester Primary Care Unavailable Christopher Richardson Admitting Unavail able Christopher Richardson Attending Unavail able TRABOULSSI, MOCHEMOHAF Attending Unavailable BALL, CHESTER E Primary Care Unavailable TRABOULSSI, MOURHAF Attending Unavailable TRABOULSSI, MOURHAF Referring Unavailable BALL, CHESTER E Primary Care Unavailable TRABOULSSI, MOURHAF Attending Unavailable TRABOULSSI, MOURHAF Referring Unavailable BALL, CHESTER E Primary Care Unavailable TRABOULSSI, MOURHAF Referring Unavailable BALL, CHESTER E Primary Care Unavailable Allergies Allergy Classification Reported Allergen(s) Allergy Type Date of Onset Reaction(s) Facility Opioid Agonists (1 source) fentaNYL; Translations: [FENTANYL] Drug Allergy 04-28-20 23 [facility] 3 Repository Sulfonamides (antibiotic) (1 source) Sulfonamides (Antibiotic); Translations: [SULFA (SULFONAMIDE ANTIBIOTICS)] Drug Allergy 04-28-20 23 [facility] 3 Repository (1 source) apixaban Drug Allergy 07-26-20 20 [facility] Repository (20 sources) Sulfonamides (Antibiotic); Translations: [SULFA (SULFONAMIDE ANTIBIOTICS)] Drug allergy (disorder) 07-29-20 13 Itching [facility] Repository (20 sources) Sulfonamides (Antibiotic); Translations: [Sulfa Drugs] Allergy to drug (finding) [place] [id number] DO Work Phone: (20 sources) fentaNYL; Translations: [fentanyl] Drug Allergy 08-22-19 22 Other [facility] (20 sources) Sulfonamides (Antibiotic) Propensity to adverse reactions Unknown [facility] [employer] Other (1 source) fentaNYL Drug Allergy 08-06-20 20 The [facility] Repository (1 source) patient allergy list reviewed by nurse or physicia Propensity to adverse reactions 04-15-20 19 Comment:Done [employer] Other (13 sources) Substance with sulfonamide structure and antibacterial mechanism of action (substance) Drug allergy 04-28-20 23 Unknown [facility] [employer] Other (1 source) fentaNYL Drug Allergy 01-18-20 [facility] Repository (1 source) Sulfonamides (Antibiotic) Drug allergy (disorder) 01-18-20 [facility] Repository Medications Current Medications Medication Drug Class(es) Dates Sig (Normalized) Sig (Original) ascorbic acid-vitamin E-biotin (Hair, Skin, Nails with Biotin) 7.5-7.5-1,250 mg-unit-mcg tablet,chewable (5 sources) ascorbic acid-vi tamin E-biotin (Hair, Skin, Nails with Biotin) 7.5-7.5-1,250 mg-unit-mcg tablet,chewable Chew 1 tablet once daily. Active ascorbic acid-vi tamin E-biotin (Hair, Skin, Nails with Biotin) 7.5-7.5-1,250 mg-unit-mcg tablet,chewable Chew 1 tablet once daily. 0 Active atorvastatin 40 mg oral tablet (20 sources) HMG-CoA Reductase Inhibitor Start: 12-14-2020 End: 11-24-2023 take 40 mg by mouth once daily at bedtime Atorvastatin Active 40 MG PO Daily at bedtime November 24, 2023 10:05am calcium carbonate 1500 mg oral tablet (5 sources) Start: 01-18-2024 take 1 tablet by mouth once daily Calcium Carbonate (Calcium 600) 600 mg calcium (1,500 mg) tablet Active 600 MG PO Daily January 18, 2024 12:00am take 1 tablet by mouth every twe lve hours Calcium 600 MG 1 tablet with [...] Leland Start: take 120 mg by mouth once daily Diltiazem Hcl Active 120 MG PO Daily January 20, 2024 12:00am Start: 11-28-2023 End: 11-27-2024 take 180 mg by mouth once daily Diltiazem Hcl Disconti nued 180 MG PO Daily November 29, 2023 12:00am January 20, 2024 2:49pm Start: 02-26-2023 End: 11-29-2023 take 120 mg by mouth twice daily Diltiazem Hcl Discontinued 120 MG PO Twice daily February 26, 2023 3:48pm November 29, 2023 6:16pm Start: 11-27-2022 End: 02-26-2023 take 120 mg [...] tablet (20 sources) Serotonin Reuptake Inhibitor Start: 01-19-2024 take 1 tablet by mouth once daily at bedtime Escitalopram Oxalate Active 10 MG PO Bedtime January 19, 2024 12:00am TAKE 1 TABLET BY MOUTH EVERYDAY AT BEDTIME Start: 12-03-2023 End: 01-19-2024 take 1 tablet by mouth once daily at bedtime Escitalopram Oxalate Discontinued 0 .ROUTE .COMPLEX December 03, 2023 6:37pm January 19, 2024 1:20am TAKE 1 TABLET BY MOUTH EVERYDAY AT BEDTIME Start: 12-14-2020 End: 12-03-2023 take 1 tablet by mouth once daily at bedtime Escitalopram Oxalate (Lexapro) 10 mg tablet Discontinued 10 MG PO Daily at bedtime December 14, 2020 12:00am December 03, 2023 6:37pm furosemide 20 mg oral tablet (20 sources) Loop Diuretic Start: 01-20-2024 take 20 mg by mouth once daily Furosemide Active 20 MG PO Daily January 20, 2024 12:00am Start: 03-18-2021 End: 09-01-2022 Furosemide Discontinued 40 M G PO Daily July 03, 2021 3:40pm September 01, 2022 [...] 27, 2020 1:00am December 14, 2020 10:51am Lactobacillus acidophilus (20 sources) Start: 06-22-2021 take [...] 2021 12:29pm take 1 capsule by mo [facility] once daily Acidophilus Oral Capsule TAKE 1 CAPSULE Daily Quantity: 0 Refills: 0 Ordered: 06-Jun-2021 DO Active multivitamin (Daily Multi-Vitamin) tablet (5 sources) take 1 tablet by nghia th once daily multivitamin (Daily Multi-Vitamin) tablet Take 1 tablet by mouth once daily. Active take 1 tablet by mouth once dominga y multivitamin (Daily Multi-Vitamin) tablet Take 1 tablet [...] tablet (20 sources) Nonergot Dopamine Agonist Start: 01-18-2024 take 1 mg by mouth once daily at bedtime Ropinirole Active 1 MG PO Daily at bedtime January 18, 2024 12:00am Start: 11-23-2021 take 1 tablet by nghia th at bedtime rOPINIRole HCl - 2 MG [...] 12:00am June 30, 2021 3:33pm sotalol hydrochloride 120 mg oral tablet (20 sources) Antiarrhythmic Start: 01-20-2024 take 1 tablet by mouth twice daily Sotalol (Sotalol Af) 120 mg Tablet Active 120 MG PO Twice daily 60 January 20, 2024 12:00am Start: 09-25-2022 take 1 tablet by nghia th every twelve hours Sotalol HCl 80 MG 1 tablet Orally every 12 hrs Sep, Active Start: 09-21-2022 End: 01-20-2024 take 80 mg by mouth twice daily Sotalol Discontinued 8 0 MG PO Twice daily 60 September 21, 2022 1:00am January 20, 2024 2:49pm Vit A-Vit Y-Ywlrit-Fasa-Copper (Hsdo-Woqc-Gejg(Vit A,C-Biotin)) 2,500 unit-100 mg-2,500 mcg capsule (3 sources) Start: 01-18-2024 take 1 capsule by mouth once daily Vit A-Vit Y-Mpjmyc-Wxir-Copper (Bzew-Opnm-Plva(Vit A,C-Biotin)) 2,500 unit-100 mg-2,500 mcg capsule Active 1 CAP PO Daily January 18, 2024 12:00am Vitamin D3 5000 UNIT (20 sources) Vitamin [...] TABLET EVERY 4 TO 6 HOURS NEEDED. Active take 1 tablet by mouth every six hours Tylenol 8 Hour 650 MG Oral Tablet Extended Release TAKE 1 TABLET Every 6 hours PRN Quantity: 0 Refills: 0 Ordered: 04-Jan-2023 DO Active acetaminophen 325 mg / HYDROcodone bitartrate 10 mg oral tablet (20 sources) Opioid Agonist Start: 04-05-2022 End: 01-18-2024 take 1 tablet by mouth once daily Hydrocodone-Acetaminophen Discontinued 1 TAB PO Daily November 24, 2023 12:00am January 18, 2024 3:56pm Start: 04-21-2021 End: 12-05-2021 Hydrocodone-Acetaminophen Di scontinued [...] 0 Refills: 0 Ordered: 26-Jul-2021 DO Active acetaminophen 325 mg / oxyCODONE [...] Discontinued 200 MG PO Twice daily 60 July 01, 2021 1:00am December 05, 2021 12:29pm Start: 04-11-2021 End: 07-03-2021 Amiodarone Discontinued 200 MG PO Daily April 11, 2021 12:00pm July 03, 2021 3:41pm start 04/15 Start: 03-18-2021 End: 04-11-2021 take 200 mg by mouth twice daily Amiodarone Discontinued 200 MG PO Twice daily 60 March 18, 2021 12:00am April 11, 2021 11:54am Start: 12-16-2020 End: 03-18-2021 take 100 mg by mouth once daily Amiodarone Discontinued 100 MG PO Daily 30 December 16, 2020 12:00am March 18, 2021 [...] 25, 2020 1:00am December 14, 2020 10:44am betamethasone 0.5 mg/ml / clotrimazole 10 mg/ml topical cream (18 sources) Azole Antifungal, Corticosteroid Start: 11-24-2023 End: 01-18-2024 Clotrimazole-Betam ethasone Discontinued APPLIC TOPICAL Twice daily November 24, 2023 12:00am January 18, 2024 3:56pm APPLY DAILY TO SKIN TO AFFECTED AREA TWICE A DAY FOR 7 DAYS Start: 10-24-2022 Clotrimazole-Bet amethasone 1-0.05 % APPLY DAILY TO SKIN TO AFFECTED AREA TWICE A DAY FOR 7 DAYS for 30 Active Biotin (10 sources) Start: 02-26-2023 End: 11-24-2023 take 1 tablet by mouth once daily in the morning Biotin (Hair, Skin And Nails (Biotin)) 10,000 mcg Tablet,Chewable Discontinued 02714 MCG PO Every morning February 26, 2023 12:00am November 24, 2023 10:06am Start: 02-26-2023 take 1 tablet by nghia th once daily in the morning Biotin (Hair, Skin And Nails (Biotin)) 10,000 mcg Tablet,Chewable Active 33682 MCG PO Every morning February 25, 2023 11:00pm Start: 02-26-2023 take 1 tablet by nghia th once daily in the morning Biotin (Hair, Skin And Nails (Biotin)) 10,000 mcg Tablet,Chewable Active 20944 MCG PO Every morning February 26, 2023 [...] Discontinued 500 MG PO Twice daily 4 September 21, 2022 1:00am November 20, 2022 8:18am Start: 07-03-2021 End: 12-05-2021 take 500 mg by mouth twice daily Cephalexin Discontinued 500 MG PO Twice daily 4 July 03, 2021 1:00am December 05, 2021 12:12pm dexamethasone 6 mg oral tablet (20 sources) Corticosteroid Start: 06-27-2020 End: 12-14-2020 take 6 mg by mouth once daily Dexamethasone Discontinued 6 MG PO Daily June 27, 2020 1:00am December 14, 2020 10:40am Ginkgo-Choline Bitartrate (Brainstrong Memory Support) 120 mg- 110 mg Tablet (10 sources) Start: 02-26-2023 End: 11-24-2023 take 1 tablet by mouth once daily in the morning Ginkgo-Choline Bitartrate (B[employer]strong Memory Support) 120 mg- 110 mg Tablet Discontinued 1 TAB PO Every morning February 26, 2023 12:00am November 24, 2023 10:07am Start: 02-26-2023 take 1 tablet by nghia th once daily in the morning Ginkgo-Choline [facility]artrate ([facility]) 120 mg- 110 mg Tablet Active 1 TAB PO Every morning February 25, 2023 11:00pm Start: 02-26-2023 take 1 tablet by nghia th once daily in the morning Ginkgo-Choline Bitartrate ([facility]) 120 mg- 110 mg Tablet [...] Start: 08-25-2022 take 1 tablet by nghia twice daily Metoprolol Tartrate 75 MG Oral [...] 17-Feb-2022 Complete spironolactone 25 mg oral tablet (20 sources) Aldosterone Antagonist Start: 09-06-2022 Spironolactone 25 [...] Problem Classification Problem Date Documented Date Episodic/Chronic Abdominal pain (20 sources) Right upper quadrant pain; Translations: [Right upper quadrant pain] Onset: 5 Resolved: 2 06-27-2021 Episodic Acute and unspecified renal failure (20 sources) Injury of kidney; Translations: [Acute kidney failure, unspecified] 04-21-2021 Episodic Biliary tract disease (20 sources) Biliary calculus; Translations: [Calculus of gallbladder without cholecystitis without obstruction] Onset: 2 Resolved: 2 06-27-2021 Episodic Cardiac dysrhythmias (20 sources) Persistent atrial fibrillation; Translations: [Atrial fibrillation] Onset: 3 06-23-2021 Chronic Cardiac dysrhythmias (20 sources) Sinus bradycardia; Translations: [Other specified cardiac dysrhythmias] Onset: 7 06-23-2021 Episodic Chronic kidney disease (20 sources) Chronic kidney disease stage 3A ; Translations: [Chronic kidney disease, Stage III (moderate)] Onset: 3 05-31-2023 Chronic Chronic kidney disease (5 sources) Chronic kidney disease; Translations: [Chronic kidney disease, stage 3a] Onset: 3 Conduction disorders (20 sources) Cardiac pacemaker in situ; Translations: [Cardiac pacemaker in situ] Onset: 3 06-29-2021 Chronic Congestive heart failure; nonhypertensive (20 sources) Diastolic heart failure; Translations: [Diastolic heart failure, unspecified] Onset: 2 07-01-2021 Chronic Coronary atherosclerosis and other heart disease (16 sources) Single coronary vessel disease; Translations: [Coronary atherosclerosis of unspecified type of vessel, bridgeport or graft] Onset: 3 04-28-2023 Chronic Deficiency [...] current use of drug therapy; Translations: [Other watermaster (current) drug therapy] Episodic Other aftercare (1 source) High risk drug monitoring status; Translations: [senior care (current) use of opiate analgesic] Episodic Other aftercare (1 source) Other watermaster (current) drug therapy Episodic Other and ill-defined heart disease (18 sources) Left ventricular systolic dysfunction; Translations: [Other [...] Episodic Other bone disease and musculoskeletal deformities (4 sources) Osteopenia; Translations: [Other specified disorders of bone density and structure, other site] 11-24-2023 Episodic Other circulatory disease (20 sources) Low blood pressure; Translations: [Hypotension, unspecified] 06-27-2021 Episodic Other connective tissue disease (7 sources) Fibromyalgia; Translations: [Fibromyalgia] 11-24-2023 Episodic Other diseases of kidney and ureters (13 sources) Hydronephrosis; Translations: [Hydronephrosis with renal and ureteral calculous obstruction] 06-28-2021 Episodic Other diseases of kidney and ureters (10 sources) Hydronephrosis with renal and ureteral calculous [...] dysphagia; Translations: [Dysphagia, pharyngoesophageal phase] Episodic Other gastrointestinal disorders (1 source) Personal history of other diseases of the digestive system; Translations: [Personal history of other diseases of digestive system] 01-28-2024 Episodic Other hereditary and degenerative nervous system [...] 2 Resolved: 2 Chronic Other liver diseases (5 sources) Cirrhosis of liver; Translations: [Unspecified cirrhosis of liver] 11-24-2023 Chronic Other lower respiratory disease (19 sources) Dyspnea on exertion; Translations: [Other forms [...] Onset: 6 11-24-2023 Chronic Residual codes; unclassified (6 sources) Obstructive sleep apnea (adult) (pediatric); Translations: [...] back pain, unspecified] Onset: 9 Episodic Syncope (20 sources) Syncope; Translations: [Syncope and collapse] 09-17-2022 [...] [Paraesophageal hernia] Onset: 02-28-2022 Resolved: 02-28-2022 Episodic Allergic reactions (2 sources) Contact dermatitis; Translations: [Contact dermatitis and other eczema, due to unspecified cause] Onset: 02-16-2015 Resolved: 2020 Episodic E Codes: Adverse effects of medical drugs (1 source) Anticoagulant adverse reaction; Translations: [Adverse effect of anticoagulants, initial encounter] Resolved: 2020 Episodic E Codes: Natural/environment (1 source) Nonvenomous insect bite; Translations: [Bitten or stung by nonvenomous insect and other nonvenomous arthropods, initial encounter] Resolved: 04-04-2022 Episodic Other aftercare (7 sources) senior care (current) use of anticoagulants; Translations: [Long-term (current) use of anticoagulants] Onset: 04-28-2023 09-21-2022 Episodic Other aftercare (5 sources) Taking high risk medication; Translations: [Other intermediate (current) drug therapy] Onset: 04-28-2023 04-28-2023 Episodic [...] Translations: [Dyspnea, unspecified] Onset: 04-28-2023 Episodic Other nervous system disorders (1 source) [...] Influenza] Onset: 06-12-2018 Episodic Residual codes; unclassified (5 sources) Never smoked any substance; Translations: [Other specified health status] Onset: 04-28-2023 04-28-2023 Episodic Unclassified (20 sources) Never smoked tobacco; Translations: [Never a smoker] Unclassified (19 sources) Elevated transaminase level; Translations: [Elevated transaminase level] Unclassified (1 source) CONTACT W/AND (SUSP) EXPOS COVID-19; Translations: [CONTACT W/AND (SUSP) EXPOS COVID-19] Onset: 04-20-2022 Unclassified (5 sources) Onset: 05-31-2023 Resolved: 11-28-2023 05-31-2023 Viral infection (1 source) Disease caused by 2019-nCoV; Translations: [COVID-19] Resolved: 2020 Results Test Name Value Interpretation Reference Range Facility ECG 12 Leadon 01-22-2024 Normal sinus rhythm with normal QTc interval [facility] Work Phone: ECG 12 lead ECGon 01-20-2024 ECG 12 lead ECG [facility] Main [place] [id number] Electrocardiograph Report Signed Patient: Lesa Golden MR#: [id number] 8 : 1940 Acct:[id number] Age/Sex: 83 / F ADM Date: 01/18/24 Loc: Room: [address] [place] [address] Type: ADM IN Attending Dr: Izzy Capps MD Ordering Provider: Christopher Richardson MD Date of Service: 01/20/2410/13/499 ECG/ECG 12 lead ECG: afib Copies to: Test Reason : Blood Pressure : / mmHG Vent. Rate : 106 BPM Atrial Rate : 106 BPM P-R Int : 154 ms QRS Dur : 076 ms QT Int : 312 ms P-R-T Axes : 108 -11 139 degrees QTc Int : 414 ms Atrial flutter with 3 to 1 block Anterior infarct , age undetermined Abnormal ECG When compared with ECG of 19-JAN-2024 13:17, (Unconfirmed) Sinus rhythm has replaced Electronic ventricular pacemaker Confirmed by [facility] ([id number][facility] on 01/20/2024 1:20:48 PM Referred By: Electronically Signed By:MARGARITA RICHARDSON [facility] Transcribed By: MUS Signed By Christopher Richardson MD 01/20/24 1320 Normal [facility] ECG 12 lead ECGon 01-19-2024 ECG 12 lead ECG [place] [id number] Electrocardiograph Report Signed Patient: Lesa Golden MR#: [id number] 8 : 1940 Acct:[id number] Age/Sex: 83 / F ADM Date: 01/18/24 Loc: Room: [address] [place] [address] Type: DIS IN Attending Dr: Izzy Capps MD Ordering Provider: Izzy Capps MD Date of Service: 01/19/2409/12/1612 ECG/ECG 12 lead ECG: chest pain Copies to: Test Reason : Blood Pressure : / mmHG Vent. Rate : 104 BPM Atrial Rate : 178 BPM P-R Int : 000 ms QRS Dur : 078 ms QT Int : 278 ms P-R-T Axes : 000 004 188 degrees QTc Int : 365 ms Atrial fibrillation with rapid ventricular response with occasional ventricular-paced complexes and with premature ventricular or aberrantly conducted complexes Septal infarct , age undetermined Abnormal ECG No previous ECGs available Confirmed by DEBBIE MAC MD ([id number]) on 01/22/2024 5:49:12 PM Referred By: Electronically Signed By:DEBBIE MAC MD Transcribed By: MUS Signed By Debbie Mac MD 0 01/22/24 1749 Normal [facility] ECG 12 lead ECG [place] [id number] Electrocardiograph Report Signed Patient: Lesa Golden MR#: [id number] 8 : 1940 Acct:[id number] Age/Sex: 83 / F ADM Date: 01/18/24 Loc: Room: [address] [place] [address] Type: ADM IN Attending Dr: Izzy Capps MD Ordering Provider: Christopher Richardson MD Date of Service: 01/19/2409/12/1204 ECG/ECG 12 lead ECG: afib Copies to: Test Reason : Blood Pressure : / mmHG Vent. Rate : 083 BPM Atrial Rate : 150 BPM P-R Int : 000 ms QRS Dur : 074 ms QT Int : 346 ms P-R-T Axes : 000 001 190 degrees QTc Int : 406 ms Atrial fibrillation with occasional ventricular-paced complexes Anterior infarct , age undetermined Abnormal ECG When compared with ECG of 19-JAN-2024 03:53, (Unconfirmed) Electronic ventricular 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 Atrial fibrillation Confirmed by [facility] ([id number]) on 01/20/2024 1:20:24 PM Referred By: Electronically Signed By:MARGARITA RICHARDSON MD [facility] Transcribed By: MUS Signed By Christopher Richardson MD 01/20/24 1320 Normal [facility] ECG 12 lead ECG [address] [address] Electrocardiograph Report Signed Patient: Lesa Golden MR#: [id number] 8 : 1940 Acct:[id number] Age/Sex: 83 / F ADM Date: 01/18/24 Loc: 3T Room: [address] [place] [address] Type: DIS IN Attending Dr: Izzy Capps MD Ordering Provider: Izzy Capps MD Date of Service: 01/19/2409/12/352 ECG/ECG 12 lead ECG: chest pain Copies to: Test Reason : Blood Pressure : / mmHG Vent. Rate : 096 BPM Atrial Rate : 166 BPM P-R Int : 000 ms QRS Dur : 074 ms QT Int : 358 ms P-R-T Axes : 000 015 173 degrees QTc Int : 452 ms Atrial fibrillation with premature ventricular or aberrantly conducted complexes Anterior infarct , age undetermined Abnormal ECG No previous ECGs available Confirmed by DEBBIE MAC MD ([id number]) on 01/22/2024 5:49:02 PM Referred By: Electronically Signed By:DEBBIE MAC MD Transcribed By: MUS Signed By Debbie Mac MD 0 01/22/24 1749 Normal [facility] ECH echo transthoracicon [facility] echo transthoracic [facility] [address] Echocardiogram Signed Patient: Lesa Golden MR#: [id number] 8 : 1940 Acct:[id number] Age/Sex: 83 / F ADM Date: 01/18/24 Loc: 3T Room: [address] [place] [address] Type: ADM IN Attending Dr: Izzy Capps MD Ordering Provider: Christopher Richardson MD Date of Service: 01/19/2409/12/1141 ECH/ECH echo transthoracic: chf Copies to: Christopher Richardson MD Weight: 154 lb Performed By: CRISTOPHER Davey BSA: 1.6 m2 BP: 115/68 mmHg HR: 81 Reason For Study: chf History: A-fib., COVID - Nov2019, HTN, Family history: CAD, CHF, CKD, SSS, pacemaker Interpretation Summary The left ventricular size, thickness and function are normal Ejection Fraction = 55-60%. There is left ventricular diastolic dysfunction. The left atrium appears moderately dilated. There is trace mitral regurgitation. There is trace tricuspid regurgitation. Right ventricular systolic pressure is consistent with mild pulmonary hypertension. Procedure/Quality: A two-dimensional transthoracic echocardiogram with color flow and Doppler was performed. The study was technically good in quality. Left Ventricle: The left ventricular size, thickness and function are normal. Ejection Fraction = 55-60%. There is left ventricular diastolic dysfunction. No left ventricular thrombus or mass is seen. Left Atrium: The left atrium appears moderately dilated. The atrial septum appears normal. Right Atrium: The right atrium appears normal in size. Right Ventricle: The right ventricular size, thickness and function are normal. There is a pacemaker lead in the right ventricle. Aortic Valve: The aortic valve is mildly sclerotic. Mitral Valve: The mitral valve is mildly sclerotic. There is trace mitral regurgitation. Tricuspid Valve: The tricuspid valve is normal in structure. There is trace tricuspid regurgitation. Right ventricular systolic pressure is consistent with mild pulmonary hypertension. Pulmonic Valve: The pulmonic valve is not well visualized. Arteries: The aortic root is normal size. The aortic arch was visualized and no abnormalities were seen. Pericardium/Pleura: No pericardial effusion seen. There is no pleural effusion. IVC/Hepatic Veins: The inferior vena cava is normal in size, with a normal collapsibility index. Measurements with Normals IVSd: 1.2 cm (0.7-1.1 cm)LVIDd: 3.9 cm (3.7-5.4 cm) LVPWd: 1.1 cm (0.7-1.1 cm)LVIDs: 3.0 cm (2.3-3.6 cm) LA dimension: 5.2 cm (2.3-4.0 cm)Ao root diam: 2.5 cm(2.0-3.6 cm) asc Aorta Diam: 2.8 cm(2.1-3.4cm) Doppler with Normals RVSP(TR): 43.3 mmHg (18-35mmHg) LV V1 max: 66.3 cm/sec (0.7-1.7m/s)MV E max douglas: 161.0 cm/sec(0.8-1.3m/s) MV A max douglas: 44.0 cm/sec(0.0-0.0m/s) MV E/A: 3.7 (<1.5) MMode/2D Measurements Calculations TAPSE: 1.9 cm FS: 23.2 % Ao root area: LVOT diam: 2.0 cm RV S Douglas: EDV(Teich): 5.1 cm2 LVOT area: 3.0 cm2 8.8 cm/sec 67.5 ml ESV(Teich): 35.7 ml EF(Teich): 47.1 % __ LVLd ap4: 5.9 cm SV(MOD-sp4): LAV(MOD-sp2): LA A2 area: 18.1 cm2 EDV(MOD-sp4): 20.3 ml 44.5 ml LA length (vol): 30.9 ml 6.0 cm LVLs ap4: 5.0 cm ESV(MOD-sp4): 10.6 ml EF(MOD-sp4): 65.7 % Doppler Measurements Calculations MV dec time: MV max PG: E/E' lat: 15.4 MV dec slope: 0.24 sec 96.0 mmHg E/E' med: 19.7 677.5 cm/sec2 __ Ao V2 max: LV V1 max PG: MR max douglas: TV max P.0 mmHg 120.2 cm/sec 1.8 mmHg 488.6 cm/sec Ao max P.8 mmHgLV V1 mean PG: MR max PG: Ao mean P.00 mmHg 95.5 mmHg 3.5 mmHg LV V1 mean: Ao V2 mean: 46.4 cm/sec 88.3 cm/sec LV V1 VTI: 15.4 cm Ao V2 VTI: 24.0 cm PRIMO(I,D): 1.9 cm2 PRIMO(V,D): 1.7 cm2 __ TR max douglas: 309.5 cm/sec TR max P.3 mmHg RAP systole: 5.0 mmHg Transcribed By: LORENZA Performed At: 01/19/24 1236 Signed By: Christopher Richardson MD 01/19/24 1458 Normal [facility] Magnesium [Mass/volume] in S vaughn or PlasmaOrdered By: Izzy Capps on 01-19-2024 Magnesium [Mass/Vol] 1.9 mg/dL 1.9-2.7 [facility] Comment on above: Result Comment: PERF ORMED BY: [facility] [address] [place] [address] PATHOLOGIST AGRICULTURE INSTRUCTOR VITOR ZARATE M.D. Performed By: #### M G #### [facility] [address] Activated partial thrombopla stin time (aPTT) in platelet poor plasma by coagulation aOrdered By: Vic Mendez on 01-18-2024 aPTT Coag (PPP) [Time] 31.3 s 25.1-36.5 [facility] Comment on above: A hematocrit value g reater than 55% may lead to inaccurate results in coagulation testing. Patients having hematocrit values >55% require a special collection tube for coagulation studies. Please contact the laboratory at [phone] for redraw instructions. Alanine aminotransferase [En zymatic activity/volume] in Serum or PlasmaOrdered By: Vic Mendez on 01-18-2024 ALT [Catalytic activity/Vol] 29 U/L 7-52 [facility] Comment on above: Order Comment: SAMPL E QNS, REDRAW REQUESTED, NOTIFIED ROSA Vázquez Performed By: #### P TT, CK, CBC, HS TROP, MG, CMP, PT ####[facility] [id number] [place] [id number] [facility] Albumin [Mass/volume] in Ser um or Plasma by Bromocresol green (BCG) dye binding methoOrdered By: Vic Mendez on 01-18-2024 Albumin BCG dye [Mass/Vol] 3.7 g/dL 3.5-5.7 [facility] Alkaline phosphatase [Enzyma tic activity/volume] in Serum or PlasmaOrdered By: Vic Mendez on 01-18-2024 ALP [Catalytic activity/Vol] 63 U/L 34-104 [facility] Comment on above: Order Comment: SAMPL E QNS, REDRAW REQUESTED, NOTIFIED ROSA Vázquez Performed By: #### P TT, CK, CBC, HS TROP, MG, CMP, PT ####[address] Aspartate aminotransferase [ Enzymatic activity/volume] in Serum or PlasmaOrdered By: Vic Mendez on 01-18-2024 AST [Catalytic activity/Vol] 17 U/L 13-39 [facility] Comment on above: Order Comment: SAMPL E QNS, REDRAW REQUESTED, NOTIFIED ROSA Vázquez Performed By: #### P TT, CK, CBC, HS TROP, MG, CMP, PT ####[address] Automated basophil %Ordered By: Vic Mendez on 01-18-2024 Basophils/100 WBC (Bld) 0.5 % . [facility] Comment on above: Performed By: #### P TT, CK, CBC, HS TROP, MG, CMP, PT ####[address] Automated basophil countOrde red By: Vic Mendez on 01-18-2024 Basophils (Bld) [#/Vol] 0.1 10*3/uL 0.0-0.2 [facility] Comment on above: Result Comment: PERF ORMED BY: [facility] [address] [place] [address] PATHOLOGIST AGRICULTURE INSTRUCTOR VITOR ZARATE M.D. Performed By: #### P TT, CK, CBC, HS TROP, MG, CMP, PT ####[address] Automated blood monocyte cou ntOrdered By: Vic Mendez on 01-18-2024 Monocytes (Bld) [#/Vol] 0.8 10*3/uL 0.0-0.8 [facility] Comment on above: Performed By: #### P TT, CK, CBC, HS TROP, MG, CMP, PT ####[address] Automated eosinophil %Ordere d By: Vic Mendez on 01-18-2024 Eosinophils/100 WBC (Bld) 1.2 % . [facility] Comment on above: Performed By: #### P TT, CK, CBC, HS TROP, MG, CMP, PT ####[address] Automated eosinophil countOr dered By: Vic Mendez on 01-18-2024 Eosinophils (Bld) [#/Vol] 0.1 10*3/uL 0.0-0.45 [facility] Comment on above: Performed By: #### P TT, CK, CBC, HS TROP, MG, CMP, PT ####[address] Automated monocyte %Ordered By: Vic Mendez on 01-18-2024 Monocytes/100 WBC (Bld) 7.6 % . [facility] Comment on above: Performed By: #### P TT, CK, CBC, HS TROP, MG, CMP, PT ####[address] Automated neutrophil %Ordere d By: Vic Mendez on 01-18-2024 Neutrophils/100 WBC (Bld) 81.5 % . [facility] Comment on above: Performed By: #### P TT, CK, CBC, HS TROP, MG, CMP, PT ####[address] Bilirubin.total [Mass/volume ] in Serum or PlasmaOrdered By: Vic Mendez on 01-18-2024 Bilirubin [Mass/Vol] 0.9 mg/dL 0.3-1.0 [facility] Comment on above: Order Comment: ADÁN FALLON, REDRAW REQUESTED, NOTIFIED ROSA Vázquez Performed By: #### P TT, CK, CBC, HS TROP, MG, CMP, PT ####[address] Calcium [Mass/volume] in Ser um or PlasmaOrdered By: Vic Mendez on 01-18-2024 Calcium [Mass/Vol] 9.2 mg/dL 8.6-10.3 [facility] Comment on above: Order Comment: ADÁN E MatNS, REDRAW REQUESTED, NOTIFIED ROSA Vázquez Performed By: #### P TT, CK, CBC, HS TROP, MG, CMP, PT ####[address] Carbon dioxide, total [Moles /volume] in Serum or PlasmaOrdered By: Vic Mendez on 01-18-2024 CO2 [Moles/Vol] 23.4 mmol/L 21.0-31.0 [facility] Comment on above: Order Comment: ADÁN RiveroNS, REDRAW REQUESTED, NOTIFIED ROSA Vázquez Performed By: #### P TT, CK, CBC, HS TROP, MG, CMP, PT ####[address] Chloride [Moles/volume] in S vaughn or PlasmaOrdered By: Vic Mendez on 01-18-2024 Chloride [Moles/Vol] 108 mmol/L 98-107 [facility] Comment on above: Order Comment: ADÁN RiveroNS, REDRAW REQUESTED, NOTIFIED ROSA Vázquez Performed By: #### P TT, CK, CBC, HS TROP, MG, CMP, PT ####[address] Complete Blood Count Auto Di ffon 01-18-2024 Mean Corpuscular HGB Conc 33.7 g/dL Normal 32.0-35.0 [facility] Comment on above: Performed By: #### P TT, CK, CBC, HS TROP, MG, CMP, PT ####[address] Monocytes/100 WBC (Bld) 18.06 % Normal 0.00-20.00 [facility] Comment on above: Performed By: #### P TT, CK, CBC, HS TROP, MG, CMP, PT ####[address] NRBC% 0.1 /100{WBC} Normal 0-0.5 [facility] Comment on above: Performed By: #### P TT, CK, CBC, HS TROP, MG, CMP, PT ####[place] [id number] [facility] Comprehensive Metabolic Pane violeta 01-18-2024 Albumin [Mass/Vol] 3.7 g/dL Normal 3.5-5.7 [facility] Comment on above: Order Comment: SAMPL E QNS, REDRAW REQUESTED, NOTIFIED ROSA Vázquez Performed By: #### P TT, CK, CBC, HS TROP, MG, CMP, PT ####[address] Creatinine Clr Calc Pharmacy 40.09 Normal [facility] Comment on above: Order Comment: SAMPL E QNS, REDRAW REQUESTED, NOTIFIED ROSA Vázquez Performed By: #### P TT, CK, CBC, HS TROP, MG, CMP, PT ####[address] GFR/1.73 sq M.predicted MDRD (S/P/Bld) [Vol rate/Area] 59.440 mL/min/{1.73_m2} Normal [facility] Comment on above: Order Comment: ADÁN E QNS, REDRAW REQUESTED, NOTIFIED ROSA Vázquez Performed By: #### P TT, CK, CBC, HS TROP, MG, CMP, PT ####[place] [id number] [facility] Creatine kinase [Enzymatic a ctivity/volume] in Serum or PlasmaOrdered By: Vic Mendez on 01-18-2024 CK [Catalytic activity/Vol] 31 U/L 30-223 [facility] Comment on above: Performed By: #### P TT, CK, CBC, HS TROP, MG, CMP, PT ####[place] [id number] [facility] Creatinine [Mass/volume] in Serum or PlasmaOrdered By: Vic Mendez on 01-18-2024 Creatinine [Mass/Vol] 0.96 mg/dL 0.60-1.20 [facility] Comment on above: Order Comment: SAMPL E QNS, REDRAW REQUESTED, NOTIFIED ROSA Vázquez Performed By: #### P TT, CK, CBC, HS TROP, MG, CMP, PT ####[facility] [id number] ECG 12 lead ECGon 01-18-2024 ECG 12 lead ECG [facility] Main [place] [address] [place] [address] Electrocardiograph Report Signed Patient: Lesa Golden MR#: [id number] 8 : 1940 Acct:[id number] Age/Sex: 83 / F ADM Date: 01/18/24 Loc: Room: [address] [place] [address] Type: ADM IN Attending Dr: Izzy Capps MD Ordering Provider: iVc Mendez PA-C Date of Service: 01/18/24 ECG/ECG 12 lead ECG: Shortness of Breath/Dyspnea Copies to: Test Reason : Blood Pressure : 123/067 mmHG Vent. Rate : 105 BPM Atrial Rate : 120 BPM P-R Int : 000 ms QRS Dur : 078 ms QT Int : 334 ms P-R-T Axes : 000 004 179 degrees QTc Int : 441 ms Atrial fibrillation with rapid ventricular response with premature ventricular or aberrantly conducted complexes Minimal voltage criteria for LVH, may be normal variant Anterior infarct (cited on or before 09-JAN-2023) Abnormal ECG When compared with ECG of 09-JAN-2023 10:17, Atrial fibrillation has replaced Electronic atrial pacemaker Vent. rate has increased BY 35 BPM Serial changes of Anterior infarct present Confirmed by [facility] ([id number]) on 01/20/2024 1:20:19 PM Referred By: Electronically Signed By:MARGARITA RICHARDSON MD [facility] Transcribed By: MUS Signed By Christopher Richardson MD 01/20/24 1320 Normal [facility] Erythrocyte distribution wid th [Ratio] by Automated countOrdered By: Vic Mendez on 01-18-2024 Erythrocyte distribution width (RBC) [Ratio] 14.1 % 11.9-15.3 [facility] Comment on above: Performed By: #### P TT, CK, CBC, HS TROP, MG, CMP, PT ####[place] [id number] [place] [id number] [facility] Erythrocytes [#/volume] in B lood by Automated countOrdered By: Vic Mendez on 01-18-2024 RBC (Bld) [#/Vol] 4.96 10*6/uL 3.60-5.00 [facility] Comment on above: Performed By: #### P TT, CK, CBC, HS TROP, MG, CMP, PT ####[place] [id number] [facility] Glucose [Mass/volume] in Ser um or PlasmaOrdered By: Vic Mendez on 01-18-2024 Glucose [Mass/Vol] 102 mg/dL 70-100 [facility] Comment on above: ADA recommended refe rence rangeRandom Glucose Reference Range is dependent on time and content of last meal. Glucose of more than 200 mg/dL in a nonstressed, ambulatory subject supports the diagnosis of Diabetes Mellitus. Order Comment: ADÁN FALLON, REDRAW REQUESTED, NOTIFIED ROSA Vázquez Result Comment: [place] Glucose Reference Range is dependent on time and content of last meal. Glucose of more than 200 mg/dL in a nonstressed, ambulatory subject supports the diagnosis of Diabetes Mellitus. ADA recommended reference range Performed By: #### P TT, CK, CBC, HS TROP, MG, CMP, PT ####[place] [id number] [facility] Hematocrit [Volume Fraction] of Blood by Automated countOrdered By: Vic Mendez on 01-18-2024 Hematocrit (Bld) [Volume fraction] 45.9 % 34.0-46.4 [facility] Comment on above: Performed By: #### P TT, CK, CBC, HS TROP, MG, CMP, PT ####[place] [id number] [facility] Hemoglobin [Mass/volume] in BloodOrdered By: Vic Mendez on 01-18-2024 Hemoglobin (Bld) [Mass/Vol] 15.5 g/dL 11.8-15.4 [facility] Comment on above: Performed By: #### P TT, CK, CBC, HS TROP, MG, CMP, PT ####[facility] INR in Platelet poor plasma by Coagulation assayOrdered By: Vic Mendez on 01-18-2024 INR Coag (PPP) [Relative time] 1.5 {INR} [facility] Comment on above: INR Therapeutic Rang [...] with mechanical heart valves: 3 - 4.5 Result Comment: INR Therapeutic Range A) Pre- [...] 3 - 4.5 Performed By: #### P TT, CK, CBC, HS TROP, MG, CMP, PT ####[place] [id number] [address] Leukocytes [#/volume] correc anne marie for nucleated erythrocytes in Blood by Automated counOrdered By: Vic Mendez on 01-18-2024 WBC corrected for nucl RBC Auto (Bld) [#/Vol] 10.4 10*3/uL 3.8-11.6 [facility] Leukocytes [#/volume] in Blo od by Automated countOrdered By: Vic Mendez on 01-18-2024 WBC (Bld) [#/Vol] 10.4 10*3/uL 3.8-11.6 [facility] Comment on above: Performed By: #### P TT, CK, CBC, HS TROP, MG, CMP, PT ####[facility] Lymphocytes [#/volume] in Bl ood by Automated countOrdered By: Vic Mendez on 01-18-2024 Lymphocytes (Bld) [#/Vol] 1.0 10*3/uL 1.00-4.8 [facility] Comment on above: Performed By: #### P TT, CK, CBC, HS TROP, MG, CMP, PT ####[address] Lymphocytes/100 leukocytes i n Blood by Automated countOrdered By: Vic Mendez on 01-18-2024 Lymphocytes/100 WBC (Bld) 9.2 % . [facility] Comment on above: Performed By: #### P TT, CK, CBC, HS TROP, MG, CMP, PT ####[address] MCH [Entitic mass] by Automa anne marie countOrdered By: Vic Mendez on 01-18-2024 MCH (RBC) [Entitic mass] 31.2 pg 24.7-34.3 [facility] Comment on above: Performed By: #### P TT, CK, CBC, HS TROP, MG, CMP, PT ####[address] MCHC Auto (RBC) [Mass/Vol]Or dered By: Vic Mendez on 01-18-2024 MCHC (RBC) [Mass/Vol] 33.7 g/dL 32.0-35.0 [facility] MCV [Entitic volume] by Auto mated countOrdered By: Vic Mendez on 01-18-2024 MCV (RBC) [Entitic vol] 92.6 fL 80-100 [facility] Comment on above: Performed By: #### P TT, CK, CBC, HS TROP, MG, CMP, PT ####[address] Magnesium [Mass/volume] in S vaughn or PlasmaOrdered By: Vic Mendez on 01-18-2024 Magnesium [Mass/Vol] 1.9 mg/dL Normal 1.9-2.7 [facility] Comment on above: Order Comment: SAMPL E QNS, REDRAW REQUESTED, NOTIFIED ROSA Vázquez Result Comment: PERF ORMED BY: [facility] [address] [place] [address] PATHOLOGIST AGRICULTURE INSTRUCTOR VITOR ZARATE M.D. Performed By: #### P TT, CK, CBC, HS TROP, MG, CMP, PT ####[place] [address] [place] [id number] [facility] Monocyte distribution width [Entitic volume] in Blood by AutomatedOrdered By: Vic Mendez on 01-18-2024 Monocyte distribution width Auto (Bld) [Entitic vol] 18.06 % 0.00-20.00 [facility] Neutrophils [#/volume] in Bl ood by Automated countOrdered By: Vic Mendez on 01-18-2024 Neutrophils (Bld) [#/Vol] 8.5 10*3/uL 1.8-7.7 [facility] Comment on above: Performed By: #### P TT, CK, CBC, HS TROP, MG, CMP, PT ####[address] No Panel InformationOrdered By: Vic Mendez on 01-18-2024 Estimated GFR (CKD-EPI) 59.440 mL/Min [facility] Creatinine Clearance (Chem 40.09 [facility] Nucleated erythrocytes [Pres ence] in Blood by Automated countOrdered By: Vic Mendez on 01-18-2024 Nucleated RBC Auto Ql (Bld) 0.1 /100{WBC} 0-0.5 [facility] Partial Thromboplastin Timeo n 01-18-2024 aPTT Coag (Bld) [Time] 31.3 s Normal 25.1-36.5 [facility] Comment on above: Result Comment: A he matocrit value greater than 55% may lead to inaccurate results in coagulation testing. Patients having hematocrit values >55% require a special collection tube for coagulation studies. Please contact the laboratory at [phone] for redraw instructions. PERFORMED BY: [facility] [address] [place] [address] PATHOLOGIST AGRICULTURE INSTRUCTOR VITOR ZARATE M.D. Performed By: #### P TT, CK, CBC, HS TROP, MG, CMP, PT ####[place] [address] [place] [id number] [facility] Platelet mean volume [Entiti c volume] in Blood by Automated countOrdered By: Vic Mendez on 01-18-2024 Platelet mean volume (Bld) [Entitic vol] 8.5 fL 6.3-10.7 [facility] Comment on above: Performed By: #### P TT, CK, CBC, HS TROP, MG, CMP, PT ####[place] [id number] [facility] Platelets [#/volume] in Bloo d by Automated countOrdered By: Vic Mendez on 01-18-2024 Platelets (Bld) [#/Vol] 205 10*3/uL 150-450 [facility] Comment on above: Performed By: #### P TT, CK, CBC, HS TROP, MG, CMP, PT ####[place] [id number] [facility] Potassium [Moles/volume] in Serum or PlasmaOrdered By: Vic Mendez on 01-18-2024 Potassium [Moles/Vol] 4.1 mmol/L 3.5-5.1 [facility] Comment on above: Order Comment: SAMPL E QNS, REDRAW REQUESTED, NOTIFIED ROSA Vázquez Performed By: #### P TT, CK, CBC, HS TROP, MG, CMP, PT ####[place] [id number] [facility] Protein [Mass/volume] in Ser um or PlasmaOrdered By: Vic Mendez on 01-18-2024 Protein [Mass/Vol] 6.0 g/dL 6.4-8.9 [facility] Comment on above: Order Comment: SAMPL E QNS, REDRAW REQUESTED, NOTIFIED ROSA Vázquez Performed By: #### P TT, CK, CBC, HS TROP, MG, CMP, PT ####[place] [id number] [facility] Prothrombin time (PT)Ordered By: Vic Mendez on 01-18-2024 PT Coag (PPP) [Time] 16.8 s 9.0-12.9 [facility] Comment on above: A hematocrit value g reater than 55% may lead to inaccurate results in coagulation testing. Patients having hematocrit values >55% require a special collection tube for coagulation studies. Please contact the laboratory at [phone] for redraw instructions. Result Comment: A he matocrit value greater than 55% may lead to inaccurate results in coagulation testing. Patients having hematocrit values >55% require a special collection tube for coagulation studies. Please contact the laboratory at [phone] for redraw instructions. Performed By: #### P TT, CK, CBC, HS TROP, MG, CMP, PT ####[address] Serum globulin measurement b y calculation (mass/volume)Ordered By: Vic Mendez on 01-18-2024 Globulin (S) [Mass/Vol] 2.3 g/dL [facility] Comment on above: Order Comment: SAMPL E QNS, REDRAW REQUESTED, NOTIFIED ROSA Vázquez Performed By: #### P TT, CK, CBC, HS TROP, MG, CMP, PT ####[address] Serum or plasma albumin/glob ulin mass ratioOrdered By: Vic Mendez on 01-18-2024 Albumin/Globulin [Mass ratio] 1.6 {ratio} [facility] Comment on above: Order Comment: SAMPL E QNS, REDRAW REQUESTED, NOTIFIED ROSA Vázquez Performed By: #### P TT, CK, CBC, HS TROP, MG, CMP, PT ####[address] Serum or plasma anion gap de terminationOrdered By: Vic Mendez on 01-18-2024 Anion gap [Moles/Vol] 11.7 mmol/L 6.0-15.0 [facility] Comment on above: Order Comment: SAMPL E QNS, REDRAW REQUESTED, NOTIFIED ROSA Vázquez Performed By: #### P TT, CK, CBC, HS TROP, MG, CMP, PT ####[address] Sodium [Moles/volume] in Ser um or PlasmaOrdered By: Vic Mendez on 01-18-2024 Sodium [Moles/Vol] 139 mmol/L 136-145 [facility] Comment on above: Order Comment: SAMPL E QNS, REDRAW REQUESTED, NOTIFIED ROSA Vázquez Performed By: #### P TT, CK, CBC, HS TROP, MG, CMP, PT ####[place] [address] [address] Thyrotropin [Units/volume] i n Serum or PlasmaOrdered By: Izzy Capps on 01-18-2024 TSH Qn 0.83 m[IU]/L 0.45-5.33 [facility] Comment on above: Order Comment: Comme nt Add on Result Comment: PERF ORMED BY: [place] [address] PATHOLOGIST AGRICULTURE INSTRUCTOR VITOR ZARATE M.D. Performed By: #### T SH3 ####[address] Troponin I High Sensitivityo n 01-18-2024 Troponin I High Sensitivity 14.7 pg/mL Normal 0.0-15.0 [facility] Comment on above: Result Comment: PERF ORMED BY: [place] [address] PATHOLOGIST AGRICULTURE INSTRUCTOR VITOR ZARATE M.D. Performed By: #### P TT, CK, CBC, HS TROP, MG, CMP, PT ####[address] Troponin I.cardiac [Mass/vol ume] in Serum or Plasma by Detection limit <= 0.01 ng/Ordered By: Vic Mendez on 01-18-2024 Troponin I.cardiac DL <= 0.01 ng/mL [Mass/Vol] 14.7 pg/mL 0.0-15.0 [facility] Urea nitrogen [Mass/volume] in Serum or PlasmaOrdered By: Vic Mendez on 01-18-2024 Urea nitrogen [Mass/Vol] 29 mg/dL 7-25 [facility] Comment on above: Order Comment: SAMPL E QNS, REDRAW REQUESTED, NOTIFIED RN DOYLE C Performed By: #### P TT, CK, CBC, HS TROP, MG, CMP, PT ####[facility] Dgn[address] [place] [id number] [facility] XR chest 1V portableon 01-17 XR chest 1V portable [facility] Main [place] [id number] XRay Report Signed Patient: Lesa Golden MR#: [id number] 8 : 1940 Acct:[id number] Age/Sex: 83 / F ADM Date: 01/18/24 Loc: ER Room: Type: [facility] ER Attending Dr: Copies to: Vic Mendez PA-C Ordering Provider: Vic Mendez PA-C Date of Service: 01/18/24 XR/XR chest 1V portable: Shortness of Breath/Dyspnea SINGLE VIEW CHEST CLINICAL HISTORY: Shortness of breath for one week. Worse with exertion. COMPARISON: Chest 09/21/2022 FINDINGS: Cardiomegaly is present. Pacemaker device in place. No consolidation pneumothorax pleural effusion or free air. XR/XR chest 1V portable IMPRESSION: CARDIOMEGALY WITHOUT ACUTE FINDINGS. Impression dictated by: Nnamdi Carson Jr., VannesaOMelita01/18/2024 3:37 PM Dictation Location: [place] [address] Transcribed By: [facility] 01/18/24 1537 Dictated By: Nnamdi Carson Jr, DO 01/18/24 1536 Signed By: 01/18/24 1537 Normal [facility] MR lumbar spine wo conon MR lumbar spine wo con [facility] Main [place] [id number] MRI Report Signed Patient: Lesa Golden MR#: [id number] 8 : 1940 Acct:[id number] Age/Sex: 83 / F ADM Date: 11/21/23 Loc: MR Room: Type: [facility] CLI Attending Dr: Yesica Astudillo MD Copies to: [...] Juanito Borja M.D.11/21/2023 5:55 PM Dictation Location: [place] [address] Transcribed By: [facility] 11/21/231754 Dictated By: Juanito Borja DO 11/21/231749 Signed By: 11/21/231754 Normal [facility] ECG 12 [place] 09-19-2023 Rhythm appeared to b e atrial flutter with 2/ [address] with [address]-T changes CPACS [facility] Work Phone: US Heart Transthoracicon Aortic Valve Area by Continuity of Peak Velocity 2.36 [facility] Work Phone: Aortic Valve Area by Continuity of VTI 2.33 [facility] Work Phone: AV mn grad 2.0 [facility] Work Phone: AV pk grad 3.5 [facility] Work Phone: AV pk douglas 0.94 [facility] Work Phone: LV A4C EF 63.6 [facility] Work Phone: LVIDd 3.20 [facility] Work Phone: LVOT diam 1.90 [facility] Work Phone: MV avg E/e' ratio 20.20 [facility] Work Phone: RVSP 32.8 [facility] Work Phone: [address], [address] [place] [address] TRANSTHORACIC ECHOCARDIOGRAM REPORT Patient Name: LESA Arriaga Physician: [id number] Mac MD Study Date: 08/21/2023 Ordering Provider: [id number] MAC MRN/PID: [id number] Fellow: Nurse: Date of /Age: 1 1940 / 82 years County Agent: Iqra Pham RDCS, RVT Gender: F Additional Staff: Height: 149.86 cm Admit Date: Weight: 74.84 kg Admission Status: BSA: 1.70 m2 Department Location: [facility] Blood Pressure: 116 /64 mmHg Study Type: TRANSTHORACIC ECHO (TTE) COMPLETE Diagnosis/ICD: Chronic diastolic (congestive) heart failure (CHF)-I50.32; Essential (primary) hypertension-I10; Dyspnea, unspecified-R06.00 Indication: Atrial Fibrillation, Sick Sinus Syndrome, Hyerlipidemia, Pacemaker, Overweight, CKD-Stage III CPT Codes: Echo Complete w Full Doppler-93384 Study Detail: The following Echo studies were [...] not included)... Debbie Dominique MD - 08/22/[address], [address], [place] [address] TRANSTHORACIC ECHOCARDIOGRAM REPORT Patient Name: LESA GOLDEN Reading Physician: [id number] Debbie Mac MD Study Date: 08/21/2023 Ordering Provider: [id number] DEBBIE MAC MRN/PID: [id number] Fellow: Nurse: Date of /Age: 1 1940 / 82 years County Agent: Iqra Pham RDCS, RVT Gender: F Additional Staff: Height: 149.86 cm Admit Date: Weight: 74.84 kg Admission Status: BSA: 1.70 m2 Department Location: [facility] Blood Pressure: 116 /64 mmHg Study Type: TRANSTHORACIC ECHO (TTE) COMPLETE Diagnosis/ICD: Chronic diastolic (congestive) heart failure (CHF)-I50.32; Essential (primary) hypertension-I10; Dyspnea, unspecified-R06.00 Indication: Atrial Fibrillation, Sick Sinus Syndrome, Hyerlipidemia, Pacemaker, Overweight, CKD-Stage III CPT Codes: Echo Complete w Full Doppler-26442 Study Detail: The following Echo studies were [...] 0.7 m/s (0.6-0.9m/s) PV Max P.8 mmHg [id number] Debbie Mac MD Electronically signed on 08/22/2023 at 12:31:20 PM Final [facility] Work Phone: [facility] Work Phone: TRANSTHORACIC ECHO (TTE) COM PLETEon 08-21-2023 TRANSTHORACIC ECHO (TTE) COMPLETE [address], [place] [address] TRANSTHORACIC ECHOCARDIOGRAM REPORT Patient Name: LESA GOLDEN Reading Physician: [id number] Mac MD Study Date: 08/21/2023 Ordering Provider: Zurdo MAC MRN/PID: [id number] Fellow: Nurse: Date of /Age: 1 1940 / 82 years County Agent: Iqra Pham RD, RVT Gender: F Additional Staff: Height: 149.86 cm Admit Date: Weight: 74.84 kg Admission Status: BSA: 1.70 m2 Department Location: [facility] Blood Pressure: 116 /64 mmHg Study Type: TRANSTHORACIC ECHO (TTE) COMPLETE Diagnosis/ICD: Chronic diastolic (congestive) heart failure (CHF)-I50.32; Essential (primary) hypertension-I10; Dyspnea, unspecified-R06.00 Indication: Atrial Fibrillation, Sick Sinus Syndrome, Hyerlipidemia, Pacemaker, Overweight, CKD-Stage III CPT Codes: Echo Complete w Full Doppler-32700 Study Detail: The following Echo studies were [...] 0.7 m/s (0.6-0.9m/s) PV Max P.8 mmHg [id number] Debbie Mac MD Electronically signed on 08/22/2023 at 12:31:20 PM Final Normal [facility] ECG 12 Leadon 05-31-2023 Paced atrial rhythm with normal QTc interval [facility] Work Phone: Alkaline phosphatase [Enzyma tic activity/volume] in Serum or PlasmaOrdered By: Wilbur Watson on 03-05-2023 ALP [Catalytic activity/Vol] 82 U/L Normal 34-104 [facility] Comment on above: Performed By: #### L IPASE, ALP, AST, GERRY, BILTD ####[facility] Amylase [Enzymatic activity/ volume] in Serum or PlasmaOrdered By: Wilbur Watson on 03-05-2023 Amylase [Catalytic activity/Vol] 32 U/L Normal 29-103 [facility] Comment on above: Performed By: #### L IPASE, ALP, AST, GERRY, BILTD ####[facility] Aspartate aminotransferase [ Enzymatic activity/volume] in Serum or PlasmaOrdered By: Wilbur Watson on 03-05-2023 AST [Catalytic activity/Vol] 19 U/L Normal 13-39 [facility] Comment on above: Performed By: #### L IPASE, ALP, AST, GERRY, BILTD ####[facility] Bilirubin, Total and Directo n 03-05-2023 Bilirubin,Indirect 0.5 mg/dL Normal [facility] Comment on above: Performed By: #### L IPASE, ALP, AST, GERRY, BILTD #### [facility] [address] Bilirubin.indirect [Mass/Vol] 0.20 mg/dL High 0.03-0.18 [facility] Comment on above: Performed By: #### L IPASE, ALP, AST, GERRY, BILTD #### [facility] [address] Bilirubin.direct [Mass/volum e] in Serum or PlasmaOrdered By: Wilbur Watson on 03-05-2023 Bilirubin.direct [Mass/Vol] 0.20 mg/dL 0.03-0.18 [facility] Bilirubin.total [Mass/volume ] in Serum or PlasmaOrdered By: Wilbur Watson on 03-05-2023 Bilirubin [Mass/Vol] 0.7 mg/dL Normal 0.3-1.0 [facility] Comment on above: Performed By: #### L ROBERT, YOHAN, BARBARA, KEDAR GARRETT #### [address] [address] [facility] 03-05-2023 L ------ Specimen: [id number] Received: 03/05/23 Status: GLORIA Shetty Num: [id number] Spec Type: Surgical Subm Dr: Wilbur Watson DO Tissues: A Gallbladder (GALLBLADDER) Procedures: Montez MARCUS/Nette L3 Age/ Patient Sex Location Account Attending Physician Lesa Golden 82/F [place] [id number] Wilbur Wtason DO SPEC NUM: [id number] RECD: 03/05/23 STATUS: GLORIA SHETTY NUM: [id number] BRENDAN: 03/05/[address] [facility] [address]: Wilbur Watson DO ENTERED: 03/05/23 [facility] DR: SPEC TYPE: Surgical DEPT: S ORDERED: AMRIT, Gross/Micro L3 ORDERED: AMRIT, Gross/Micro L3 Pathological Diagnosis Gallbladder, cholecystectomy: - [...] is inked, measuring 0.3 cm in diameter. Licensed And Certified Midwife sections are submitted in one cassette labeled A1. Microscopic Description One H E slide reviewed. The microscopic examination confirms the diagnosis. Specimen: [id number] Received: 03/05/23 Status: GLORIA Camila Num: [id number] Spec Type: Surgical Subm Dr: Wilbur Watson DO Tissues: A Gallbladder (GALLBLADDER) Procedures: Montez MARCUS/Micro L3 Patient: Lesa Golden [id number] (Continued) Specimen: [id number] Received: 03/05/23 (Continued) Signed (signature on file) Emeka Aquino MD 03/07/23 1159 Specimen: [id number] Received: 03/05/23 Status: GLORIA Shetty Num: [id number] Spec Type: Surgical Subm Dr: Wilbur Watson DO Tissues: A Gallbladder (GALLBLADDER) Procedures: Montez MARCUS/Nette L3 Patient: Lesa Golden [id number] (Continued) Specimen: Received: 03/05/23 (Continued) CPT Codes 55844 Specimen: Received: 03/05/23 Status: GLORIA Reynoldsmat Num: [id number] Spec Type: Surgical Subm Dr: Wilbur Watson DO Tissues: A Gallbladder (GALLBLADDER) Procedures: Montez MARCUS/Nette L3 Patient: Lesa Golden [id number] (Continued) Signed (signature on file) Emeka Aquino MD 03/07/23 1159 Normal [facility] Lipase [Enzymatic activity/v olume] in Serum or PlasmaOrdered By: Wilbur Watson on 03-05-2023 Lipase [Catalytic activity/Vol] 31.0 U/L Normal 11.0-82.0 [facility] Comment on above: Result Comment: PERF ORMED BY: [place] [address] PATHOLOGIST AGRICULTURE INSTRUCTOR VITOR ZARATE M.D. Performed By: #### L IPASE, ALP, AST, GERRY, BILTD ####[facility] [address]um[address] Serum or plasma non-glucuron idated bilirubin measurement (mass/volume)Ordered By: Wilbur Watson on 03-05-2023 Bilirubin.indirect [Mass/Vol] 0.5 mg/dL [facility] Automated basophil %Ordered By: Wilbur Watson on 02-26-2023 Basophils/100 WBC (Bld) 0.5 % Normal . [facility] Comment on above: Performed By: #### C BC, BMP #### [facility] [address] [place] [address] Automated basophil countOrde red By: Wilbur Watson on 02-26-2023 Basophils (Bld) [#/Vol] 0.0 10*3/uL Normal 0.0-0.2 [facility] Comment on above: Result Comment: PERF ORMED BY: [place] [address] PATHOLOGIST AGRICULTURE INSTRUCTOR VITOR ZARATE M.D. Performed By: #### C BC, BMP #### [facility] [address] [place] [address] Automated blood monocyte cou ntOrdered By: Wilbur Watson on 02-26-2023 Monocytes (Bld) [#/Vol] 0.6 10*3/uL Normal 0.0-0.8 [facility] Comment on above: Performed By: #### C BC, BMP #### [address] Automated eosinophil %Ordere d By: Wilbur Watson on 02-26-2023 Eosinophils/100 WBC (Bld) 2.2 % Normal . [facility] Comment on above: Performed By: #### C BC, BMP #### [address] Automated eosinophil countOr dered By: Wilbur Watson on 02-26-2023 Eosinophils (Bld) [#/Vol] 0.2 10*3/uL Normal 0.0-0.45 [facility] Comment on above: Performed By: #### C BC, BMP #### [address] Automated monocyte %Ordered By: Wilbur Watson on 02-26-2023 Monocytes/100 WBC (Bld) 7.1 % Normal . [facility] Comment on above: Performed By: #### C BC, BMP #### [address] Automated neutrophil %Ordere d By: Wilbur Watson on 02-26-2023 Neutrophils/100 WBC (Bld) 79.9 % Normal . [facility] Comment on above: Performed By: #### C BC, BMP #### [address] Basic Metabolic Panelon 02-17 GFR/1.73 sq M.predicted MDRD (S/P/Bld) [Vol rate/Area] 54.967 mL/min/{1.73_m2} Normal [facility] Comment on above: Performed By: #### C BC, BMP #### [address] Calcium [Mass/volume] in Ser um or PlasmaOrdered By: Wilbur Watson on 02-26-2023 Calcium [Mass/Vol] 9.0 mg/dL Normal 8.6-10.3 [facility] Comment on above: Result Comment: PERF ORMED BY: [place] [address] PATHOLOGIST AGRICULTURE INSTRUCTOR VITOR ZARATE M.D. Performed By: #### C BC, BMP #### [address] Carbon dioxide, total [Moles /volume] in Serum or PlasmaOrdered By: Wilbur Watson on 02-26-2023 CO2 [Moles/Vol] 24.7 mmol/L Normal 21.0-31.0 [facility] Comment on above: Performed By: #### C BC, BMP #### [address] Chloride [Moles/volume] in S vaughn or PlasmaOrdered By: Wilbur Watson on 02-26-2023 Chloride [Moles/Vol] 108 mmol/L High 98-107 [facility] Comment on above: Performed By: #### C BC, BMP #### [address] Complete Blood Count Auto Di ffon 02-26-2023 Mean Corpuscular HGB Conc 33.8 g/dL Normal 32.0-35.0 [facility] Comment on above: Performed By: #### C BC, BMP #### [address] NRBC% 0.0 /100{WBC} Normal 0-0.5 [facility] Comment on above: Performed By: #### C BC, BMP #### [address] Creatinine [Mass/volume] in Serum or PlasmaOrdered By: Wilbur Watson on 02-26-2023 Creatinine [Mass/Vol] 1.03 mg/dL Normal 0.60-1.20 [facility] Comment on above: Performed By: #### C BC, BMP #### [address] Erythrocyte distribution wid th [Ratio] by Automated countOrdered By: Wilbur Watson on 02-26-2023 Erythrocyte distribution width (RBC) [Ratio] 13.8 % Normal 11.9-15.3 [facility] Comment on above: Performed By: #### C ABI, BMP #### [facility] [address] [place] [address] [place] Erythrocytes [#/volume] in B lood by Automated countOrdered By: Wilbur Watson on 02-26-2023 RBC (Bld) [#/Vol] 4.88 10*6/uL Normal 3.60-5.00 [facility] Comment on above: Performed By: #### C ABI, BMP #### [facility] [address] [place] [address] [place] Glucose [Mass/volume] in Ser um or PlasmaOrdered By: Wilbur Watson on 02-26-2023 Glucose [Mass/Vol] 81 mg/dL Normal 70-100 [facility] Comment on above: ADA recommended refe rence rangeRandom Glucose Reference Range is dependent on time and content of last meal. Glucose of more than 200 mg/dL in a nonstressed, ambulatory subject supports the diagnosis of Diabetes Mellitus. Result Comment: [place] om Glucose Reference Range is dependent on time and content of last meal. Glucose of more than 200 mg/dL in a nonstressed, ambulatory subject supports the diagnosis of Diabetes Mellitus. ADA recommended reference range Performed By: #### C ABI, BMP #### [facility] [address] Hematocrit [Volume Fraction] of Blood by Automated countOrdered By: Wilbur Watson on 02-26-2023 Hematocrit (Bld) [Volume fraction] 44.1 % Normal 34.0-46.4 [facility] Comment on above: Performed By: #### C ABI, BMP #### [facility] [address] [place] [id number] [place] Hemoglobin [Mass/volume] in BloodOrdered By: Wilbur Watson on 02-26-2023 Hemoglobin (Bld) [Mass/Vol] 14.9 g/dL Normal 11.8-15.4 [facility] Comment on above: Performed By: #### C ABI, BMP #### [facility] [address] [place] [id number] [place] Leukocytes [#/volume] correc anne marie for nucleated erythrocytes in Blood by Automated counOrdered By: Wilbur Watson on 02-26-2023 WBC corrected for nucl RBC Auto (Bld) [#/Vol] 8.3 10*3/uL 3.8-11.6 [facility] Leukocytes [#/volume] in Blo od by Automated countOrdered By: Wilbur Watson on 02-26-2023 WBC (Bld) [#/Vol] 8.3 10*3/uL Normal 3.8-11.6 [facility] Comment on above: Performed By: #### C ABI, BMP #### [facility] [address] [place] [address] [place] Lymphocytes [#/volume] in Bl ood by Automated countOrdered By: Wilbur Watson on 02-26-2023 Lymphocytes (Bld) [#/Vol] 0.9 10*3/uL Low 1.00-4.8 [facility] Comment on above: Performed By: #### C ABI, BMP #### [facility] [address] [place] [address] [place] Lymphocytes/100 leukocytes i n Blood by Automated countOrdered By: Wilbur Watson on 02-26-2023 Lymphocytes/100 WBC (Bld) 10.3 % Normal . [facility] Comment on above: Performed By: #### C ABI, BMP #### [place] [address] [place] MCH [Entitic mass] by Automa anne marie countOrdered By: Wilbur Watson on 02-26-2023 MCH (RBC) [Entitic mass] 30.5 pg Normal 24.7-34.3 [facility] Comment on above: Performed By: #### C ABI, BMP #### [address] MCHC Auto (RBC) [Mass/Vol]Or dered By: Wilbur Watson on 02-26-2023 MCHC (RBC) [Mass/Vol] 33.8 g/dL 32.0-35.0 [facility] MCV [Entitic volume] by Auto mated countOrdered By: Wilbur Watson on 02-26-2023 MCV (RBC) [Entitic vol] 90.4 fL Normal 80-100 [facility] Comment on above: Performed By: #### C BC, BMP #### [address] Neutrophils [#/volume] in Bl ood by Automated countOrdered By: Wilbur Watson on 02-26-2023 Neutrophils (Bld) [#/Vol] 6.6 10*3/uL Normal 1.8-7.7 [facility] Comment on above: Performed By: #### C BC, BMP #### [address] No Panel InformationOrdered By: Wilbur Watson on 02-26-2023 Estimated GFR (CKD-EPI) 54.967 mL/Min [facility] Creatinine Clearance (Chem N/A [facility] Nucleated erythrocytes [Pres ence] in Blood by Automated countOrdered By: Wilbur Watson on 02-26-2023 Nucleated RBC Auto Ql (Bld) 0.0 /100{WBC} 0-0.5 [facility] Platelet mean volume [Entiti c volume] in Blood by Automated countOrdered By: Wilbur Watson on 02-26-2023 Platelet mean volume (Bld) [Entitic vol] 8.9 fL Normal 6.3-10.7 [facility] Comment on above: Performed By: #### C ABI, BMP #### [address] Platelets [#/volume] in Bloo d by Automated countOrdered By: Wilbur Watson on 02-26-2023 Platelets (Bld) [#/Vol] 194 10*3/uL Normal 150-450 [facility] Comment on above: Performed By: #### C BC, BMP #### [address] Potassium [Moles/volume] in Serum or PlasmaOrdered By: Wilbur Watson on 02-26-2023 Potassium [Moles/Vol] 4.3 mmol/L Normal 3.5-5.1 [facility] Comment on above: Performed By: #### C BC, BMP #### [facility] [address] [place] [id number] [facility] Serum or plasma anion gap de terminationOrdered By: Wilbur Watson on 02-26-2023 Anion gap [Moles/Vol] 12.6 mmol/L Normal 6.0-15.0 [facility] Comment on above: Performed By: #### C BC, BMP #### [facility] [address] Sodium [Moles/volume] in Ser um or PlasmaOrdered By: Wilbur Watson on 02-26-2023 Sodium [Moles/Vol] 141 mmol/L Normal 136-145 [facility] Comment on above: Performed By: #### C BC, BMP #### [address] Urea nitrogen [Mass/volume] in Serum or PlasmaOrdered By: Wilbur Watson on 02-26-2023 Urea nitrogen [Mass/Vol] 32 mg/dL High 7-25 [facility] Comment on above: Performed By: #### C BC, BMP #### [place] [id number] [facility] Falls Screening (Age 18+)on 01-25-2023 Fall risk assessment a) No falls within the last year [facility] Work Phone: Tobacco use status CPHS b) No [facility] Work Phone: Office Visit (Cardiology)on [...] TABLET B (more content not included)... Normal [employer] Activated partial thrombopla stin time (aPTT) in platelet poor plasma by coagulation aOrdered By: Debbie Mac on 01-09-2023 aPTT Coag (PPP) [Time] 19.5 s 25.1-36.5 [facility] Basophils Auto (Bld) [#/Vol] Ordered By: Debbie Mac on 01-09-2023 Basophils (Bld) [#/Vol] 0.0 10*3/uL 0.0-0.2 [facility] Basophils/100 WBC Auto (Bld) Ordered By: Debbie Mac on 01-09-2023 Basophils/100 WBC (Bld) 0.6 % . [facility] Carbon dioxide, total [Moles /volume] in Serum or PlasmaOrdered By: Debbie Mac on 01-09-2023 CO2 [Moles/Vol] 25.6 mmol/L 21.0-31.0 [facility] Chloride [Moles/volume] in S vaughn or PlasmaOrdered By: Debbie Mac on 01-09-2023 Chloride [Moles/Vol] 106 mmol/L 98-107 [facility] Cholesterol [Mass/volume] in Serum or PlasmaOrdered By: Debbie Mac on 01-09-2023 Cholesterol [Mass/Vol] 135 mg/dL 140-200 [facility] Comment on above: Chol less than 200 m g/dl low riskChol 201-239 mg/dl borderline riskChol 240 mg/dl and greater high risk Cholesterol in LDL Calc [Mas s/Vol]Ordered By: Debbie Mac on 01-09-2023 Cholesterol in LDL [Mass/Vol] 45 mg/dL 0-100 [facility] Comment on above: LDL ATP III CLASSIFI CATIONLDL less than 100 mg/dL OptimalLDL 100-129 mg/dL Near or above optimalLDL 130-159 mg/dL Borderline highLDL 160-189 mg/dL HighLDL greater than 189 mg/dL Very high Cholesterol in VLDL Calc [Ma ss/Vol]Ordered By: Debbie Mac on 01-09-2023 Cholesterol in VLDL [Mass/Vol] 13 mg/dL [facility] Creatinine [Mass/volume] in Serum or PlasmaOrdered By: Debbie Mac on 01-09-2023 Creatinine [Mass/Vol] 0.98 mg/dL 0.60-1.20 [facility] Eosinophils Auto (Bld) [#/Vo l]Ordered By: Debbie Mac on 01-09-2023 Eosinophils (Bld) [#/Vol] 0.2 10*3/uL 0.0-0.45 [facility] Eosinophils/100 WBC Auto (Bl d)Ordered By: Debbie Mac on 01-09-2023 Eosinophils/100 WBC (Bld) 2.9 % . [facility] Erythrocyte distribution wid th Auto (RBC) [Ratio]Ordered By: Debbie Mac on 01-09-2023 Erythrocyte distribution width (RBC) [Ratio] 14.5 % 11.9-15.3 [facility] Hematocrit Auto (Bld) [Volum e fraction]Ordered By: Debbie Mac on 01-09-2023 Hematocrit (Bld) [Volume fraction] 43.9 % 34.0-46.4 [facility] Hemoglobin [Mass/volume] in BloodOrdered By: Debbie Mac on 01-09-2023 Hemoglobin (Bld) [Mass/Vol] 14.7 g/dL 11.8-15.4 [facility] Laboratory - Chemistry and C hemistry - challengeon 01-09-2023 Cholesterol [Mass/Vol] 135\S\135 below low threshold 140-200 [facility] Work Phone: Comment on above: Chol less than 200 m g/dl low risk Chol 201-239 mg/dl borderline risk Chol 240 mg/dl and greater high risk Cholesterol in LDL [Mass/Vol] 45\S\45 Normal 0-100 [facility] Work Phone: Comment on above: LDL ATP III CLASSIFI CATION LDL less than 100 mg/dL Optimal LDL 100-129 mg/dL Near or above optimal LDL 130-159 mg/dL Borderline high LDL 160-189 mg/dL High LDL greater than 189 mg/dL Very high Laboratory - CoagulationOrde red By: Debbie Mac on 01-09-2023 PT Coag (PPP) [Time] 11.5 s 9.0-12.9 [facility] Leukocytes [#/volume] correc anne marie for nucleated erythrocytes in Blood by Automated counOrdered By: Debbie Mac on 01-09-2023 WBC corrected for nucl RBC Auto (Bld) [#/Vol] 7.1 10*3/uL 3.8-11.6 [facility] Lymphocytes Auto (Bld) [#/Vo l]Ordered By: Debbie Mac on 01-09-2023 Lymphocytes (Bld) [#/Vol] 1.0 10*3/uL 1.00-4.8 [facility] Lymphocytes/100 WBC Auto (Bl d)Ordered By: Debbie Mac on 01-09-2023 Lymphocytes/100 WBC (Bld) 14.7 % . [facility] MCH Auto (RBC) [Entitic mass ]Ordered By: Debbie Mac on 01-09-2023 MCH (RBC) [Entitic mass] 29.8 pg 24.7-34.3 [facility] MCHC Auto (RBC) [Mass/Vol]Or dered By: Debbie Mac on 01-09-2023 MCHC (RBC) [Mass/Vol] 33.5 g/dL 32.0-35.0 [facility] MCV Auto (RBC) [Entitic vol] Ordered By: Debbie Mac on 01-09-2023 MCV (RBC) [Entitic vol] 89.1 fL 80-100 [facility] Monocytes Auto (Bld) [#/Vol] Ordered By: Debbie Mac on 01-09-2023 Monocytes (Bld) [#/Vol] 0.5 10*3/uL 0.0-0.8 [facility] Monocytes/100 WBC Auto (Bld) Ordered By: Debbie Mac on 01-09-2023 Monocytes/100 WBC (Bld) 7.0 % . [facility] Neutrophils Auto (Bld) [#/Vo l]Ordered By: Debbie Mac on 01-09-2023 Neutrophils (Bld) [#/Vol] 5.3 10*3/uL 1.8-7.7 [facility] Neutrophils/100 WBC Auto (Bl d)Ordered By: Debbie Mac on 01-09-2023 Neutrophils/100 WBC (Bld) 74.8 % . [facility] No Panel Informationon 01-09 74.8\S\74.8 Normal . [facility] Work Phone: 8.8\S\8.8 Normal 6.3-10.7 [facility] Work Phone: [phone] Normal 150-450 [facility] Work Phone: 14.5\S\14.5 Normal 11.9-15.3 [facility] Work Phone: 33.5\S\33.5 Normal 32.0-35.0 [facility] Work Phone: 29.8\S\29.8 Normal 24.7-34.3 [facility] Work Phone: 5.3\S\5.3 Normal 1.8-7.7 [facility] Work Phone: 0.1\S\0.1 Normal 0-0.5 [facility] Work Phone: 0.6\S\0.6 Normal . [facility] Work Phone: 2.9\S\2.9 Normal . [facility] Work Phone: 7.0\S\7.0 Normal . [facility] Work Phone: 14.7\S\14.7 Normal 11.8-15.4 [facility] Work Phone: 0.0\S\0.0 Normal 0.0-0.2 [facility] Work Phone: Comment on above: PERFORMED BY:[facility] LU[address] YOST [id number] MEDICAL DIRECTORVITOR ZARATE M.D. 0.2\S\0.2 Normal 0.0-0.45 [facility] Work Phone: [phone] 0.5\S\0.5 Normal 0.0-0.8 [facility] Work Phone: 1.0\S\1.0 Normal 1.00-4.8 [facility] Work Phone: [phone] 89.1\S\89.1 Normal 80-100 [facility] Work Phone: [phone] 43.9\S\43.9 Normal 34.0-46.4 [facility] Work Phone: [phone] 4.92\S\4.92 Normal 3.60-5.00 [facility] Work Phone: [phone] 7.1\S\7.1 Normal 3.8-11.6 [facility] Work Phone: [phone] 4.5\S\4.5 Normal 3.5-5.1 [facility] Work Phone: [phone] Comment on above: PERFORMED BY:[facility] [place] [place], [place] [phone] MEDICAL DIRECTORKUSHALBANNER [facility]OTILLO [facility] ELLIOT Costello 1.8\S\1.8 Normal <5.0 [facility] Work Phone: Comment on above: PERFORMED BY:[place] [address] [address] [place], [place] [id number] MEDICAL DIRECTORKUSHALBANNER [facility]OTILLO [facility] ELLIOT Costello 13\S\13 Normal [facility] Work Phone: [phone] 69\S\69 Normal 0-149 [facility] Work Phone: [phone] Comment on above: TRIG ATP III CLASSIF ICATION TRIG less than 150 mg/dL Normal TRIG 150-199 mg/dL Borderline high TRIG 200-500 mg/dL High TRIG greater than 500 mg/dL Very high Standard traceable to the Center for Disease Conrtrol and Prevention (CDC) test method. 76\S\76 Normal 35-85 [facility] Work Phone: Comment on above: HDL CHOL ATP-III CLA SSIFICATION Cardiovascular Risk HDL > or equal to 60 mg/dL LOW HDL < 40 mg/dL HIGH 19.5\S\19.5 below low threshold 25.1-36.5 [facility] Work Phone: [phone] Comment on above: PERFORMED BY:[facility] [place] [id number] MEDICAL DIRECTORVITOR ZARATE M.D. 1.0\S\1.0 Normal [facility] Work Phone: [phone] Comment on above: INR Therapeutic Rang e [...] valves: 3 - 4.5 11.5\S\11.5 Normal 9.0-12.9 [facility] Work Phone: [phone] Test not performed\S \Test not performed Normal 6.0-15.0 [facility] Work Phone: [phone] 25.6\S\25.6 Normal 21.0-31.0 [facility] Work Phone: [phone]\S\106 Normal 98-107 [facility] Work Phone: [phone] Normal 3.5-5.1 [facility] Work Phone: [phone] Comment on above: Specimen hemolyzed, redraw requested 138\S\138 Normal 136-145 [facility] Work Phone: [phone] 22\S\22 Normal 7-25 [facility] Work Phone: [phone] 40.90\S\40.90 Normal [facility] Work Phone: [phone] Comment on above: PERFORMED BY:[facility] [place] [id number] MEDICAL DIRECTORVITOR ZARATE M.D. 58.349\S\58.349 Normal [facility] Work Phone: [phone] 0.98\S\0.98 Normal 0.60-1.20 [facility] Work Phone: [phone] No Panel InformationOrdered By: Debbie Mac on 01-09-2023 Estimated GFR (CKD-EPI) 58.349 mL/Min [facility] Creatinine Clearance (Chem 40.90 [facility] Nucleated erythrocytes [Pres ence] in Blood by Automated countOrdered By: Debbie Mac on 01-09-2023 Nucleated RBC Auto Ql (Bld) 0.1 /100{WBC} 0-0.5 [facility] Platelet mean volume Auto (B ld) [Entitic vol]Ordered By: Debbie Mac on 01-09-2023 Platelet mean volume (Bld) [Entitic vol] 8.8 fL 6.3-10.7 [facility] Platelet poor plasma interna tional normalized ratio (INR) by coagulation assay (relatOrdered By: Debbie Mac on 01-09-2023 INR Coag (PPP) [Relative time] 1.0 {INR} [facility] Comment on above: INR Therapeutic Rang [...] 01-09-2023 Platelets (Bld) [#/Vol] 167 10*3/uL 150-450 [facility] Potassium [Moles/volume] in Serum or PlasmaOrdered By: Debbie Mac on 01-09-2023 Potassium [Moles/Vol] 4.5 mmol/L 3.5-5.1 [facility] RBC Auto (Bld) [#/Vol]Ordere d By: Debbie Mac on 01-09-2023 RBC (Bld) [#/Vol] 4.92 10*6/uL 3.60-5.00 [facility] Serum or plasma anion gap de terminationOrdered By: Debbie Mac on 01-09-2023 Anion gap [Moles/Vol] TNP [facility] Comment on above: Test not performed Serum or plasma high density lipoprotein (HDL) cholesterol measurementOrdered By: Debbie Mac on 01-09-2023 Cholesterol in HDL [Mass/Vol] 76 mg/dL 35-85 [facility] Comment on above: HDL CHOL ATP-III CLA SSIFICATION Cardiovascular RiskHDL > or equal to 60 mg/dL LOWHDL < 40 mg/dL HIGH Serum or plasma total choles terol/high density lipoprotein (HDL) cholesterol mass ratOrdered By: Debbie Mac on 01-09-2023 Cholesterol.total/Chol esterol in HDL [Mass ratio] 1.8 {ratio} <5.0 [facility] Sodium [Moles/volume] in Ser um or PlasmaOrdered By: Debbie Mac on 01-09-2023 Sodium [Moles/Vol] 138 mmol/L 136-145 [facility] Triglyceride [Mass/volume] i n Serum or PlasmaOrdered By: Debbie Mac on 01-09-2023 Triglyceride [Mass/Vol] 69 mg/dL 0-149 [facility] Comment on above: TRIG ATP III CLASSIF ICATIONTRIG less than 150 mg/dL NormalTRIG 150-199 mg/dL Borderline highTRIG 200-500 mg/dL High TRIG greater than 500 mg/dL Very highStandard traceable to the Center for Disease Conrtrol and Prevention (CDC) test method. Urea nitrogen [Mass/volume] in Serum or PlasmaOrdered By: Debbie Mac on 01-09-2023 Urea nitrogen [Mass/Vol] 22 mg/dL 7-25 [facility] WBC Auto (Bld) [#/Vol]Ordere d By: Debbie Mac on 01-09-2023 WBC (Bld) [#/Vol] 7.1 10*3/uL 3.8-11.6 [facility] Office Visit (Cardiology)on 01-04-2023 Follow-up visit [...] in adult Healthy Weight Tips; Status:Complete; Done: [id number] Some eating tips that can help you lose weight.; Status:Complete; Done: [id number] Diastolic heart failure, Dyspnea, Essential hypertension, benign, Persistent atrial fibrillation, 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 Cardiac Catherization; Status:Active; Requested for:[id number]; Persistent atrial fibrillation IO EKG Electrocardiogram- 12 Lead; Status:Complete; Done: [id number] SocHx: Never a smoker Tobacco Use Screening; Status:Complete; Done: [id number] Patient Instructions Please bring all medicines, vitamins, [...] and alternat (more content not included)... Normal [facility] TROPONIN, HIGH SENSITIVITYon 01-04-2023 HSTROP 73.1 pg/mL Critically high 4.0-51.3 [facility] Comment on above: Result Comment: CUT- OFF POINTS HAVE BEEN ESTABLISHED BASED ON THE FOURTH UNIVERSAL DEFINITIONS OF MYOCARDIAL INFARCTION. THE UPPER REFERENCE LIMIT (URL) OF TROPONIN, DEFINED THE 99TH PERCENTILE OF cTnI DISTRIBUTION IN A REFERENCE POPULATION, HAS BEEN CONFIRMED THE DECISION THRESHOLD FOR MD DIAGNOSIS. Performed By: #### H STROPN #### [facility] [address] [place], [place] [address] Dr. Lori Sutton Tobacco Screening.on 023 Tobacco use status CPHS b) No [facility] Work Phone: XR CHEST 1 Von 01-04-2023 [...] cardiomegaly. Large hiatal hernia. Electronically authenticated by: [facility] Date: 2023-01-03 22:39 Normal [facility] BNPon 01-03-2023 Natriuretic peptide B (Bld) [Mass/Vol] 438.0 pg/mL Normal <=1,800.0 [facility] Comment on above: Performed By: #### B ENVELOPE MACHINE OPERATOR ####[facility] [address] [place] [id number]. Lori Sutton CBC AUTO DIFFon 01-03-2023 BASO # 0.0 103/ul Normal 0.0-0.1 [facility] Comment on above: Performed By: #### C BC ####[facility] [address] [place] [id number]. Lori Sutton Basophils/100 WBC (Bld) 0.7 % Normal 0.2-2.0 [facility] Comment on above: Performed By: #### C BC ####[facility] [address] [place], [place] [address]Dr. Lori Sutton EO # 0.2 103/ul Normal 0.0-0.7 [facility] Comment on above: Performed By: #### C BC ####[facility] [address] [place], [place] [address]Dr. Lori Sutton Eosinophils/100 WBC (Bld) 4.2 % Normal 0.9-7.0 [facility] Comment on above: Performed By: #### C BC ####[facility] O[address] [place], [place] [address]Dr. Lori Sutton Erythrocyte distribution width (RBC) [Ratio] 13.7 % Normal 11.0-15.0 [facility] Comment on above: Performed By: #### C BC ####[facility] [address] [place], [place] [address]Dr. Lori Sutton Hematocrit (Bld) [Volume fraction] 46.1 % Normal 36.0-48.0 [facility] Comment on above: Performed By: #### C BC ####[facility] En[address] [place], [place] [address]Dr. Lori Sutton Hemoglobin (Bld) [Mass/Vol] 14.7 g/dL Normal 12.0-16.0 [facility] Comment on above: Performed By: #### C BC ####[facility] [address] [place], [place] [address]Dr. Lori Sutton IG # 0.01 10e3/ul Normal 0.00-0.03 [facility] Comment on above: Performed By: #### C BC ####[facility] [address] [place], [place] [address]Dr. Lori Sutton IG % 0.2 % Normal 0.0-0.5 [facility] Comment on above: Performed By: #### C BC ####[facility] A[address] [place], [place] [address]Dr. Lori Sutton LYMPH # 1.3 103/ul Normal 1.2-3.8 [facility] Comment on above: Performed By: #### C BC ####[facility] [address] [place] [address]Dr. Lori Sutton Lymphocytes/100 WBC (Bld) 22.9 % Normal 20.5-60.0 [facility] Comment on above: Performed By: #### C BC ####[facility] [address] [place] [address]Dr. Lori Sutton MANUAL DIFF REQ NO Normal [facility] Comment on above: Performed By: #### C BC ####[facility] I[address] [place], [place] [address]Dr. Lori Sutton MCH (RBC) [Entitic mass] 29.7 pg Normal 26.7-34.0 [facility] Comment on above: Performed By: #### C BC ####[facility] [address] [place], [place] [address]Dr. Lori Sutton MCHC (RBC) [Mass/Vol] 31.9 g/dL Normal 29.9-35.2 [facility] Comment on above: Performed By: #### C BC ####[facility] Gle[address]eb[address] [place], [place] [address]DrMelita Sutton MCV (RBC) [Entitic vol] 93.1 fL Normal 81.0-99.0 [facility] Comment on above: Performed By: #### C BC ####[facility] [address] [place], [place] [address]Dr. Lori Sutton MONO # 0.3 103/ul Normal 0.3-0.8 [facility] Comment on above: Performed By: #### C BC ####[facility] X[address] [place], [place] [address]DrMelita Sutton Monocytes/100 WBC (Bld) 4.7 % Normal 1.7-12.0 [facility] Comment on above: Performed By: #### C BC ####[facility] [address] [place], [place] [address]Dr. Lori Sutton NEUT # 3.9 103/ul Normal 1.4-6.5 [facility] Comment on above: Performed By: #### C BC ####[facility] [address] [place] [address]Dr. Lori Sutton Neutrophils/100 WBC (Bld) 67.3 % Normal 43.0-75.0 [facility] Comment on above: Performed By: #### C BC ####[facility] [address] [place] [address]Dr. Lori Sutton Platelet mean volume (Bld) [Entitic vol] 10.5 fL Normal 9.5-13.5 [facility] Comment on above: Performed By: #### C BC ####[facility] [address] [place] [address]Dr. Lori Sutton PLT 211 103/ul Normal 150-450 [facility] Comment on above: Performed By: #### C BC ####[facility] [address] [place], [place] [address]Dr. Lori Sutton RBC 4.95 106/ul Normal 4.20-5.40 [facility] Comment on above: Performed By: #### C BC ####[facility] [address] [place], [place] [address]Dr. Lori Sutton WBC 5.7 103/ul Normal 4.0-11.0 [facility] Comment on above: Performed By: #### C BC ####[facility] [address] [place], [place] [address]Dr. Lori Sutton D-DIMERon 01-03-2023 D-DIMER 0.26 mg/L FEU Normal <=0.59 [facility] Comment on above: Performed By: #### D DIM ####[facility] [address] [place], [place] [address]Dr. Lori Sutton D-DIMER COMMENTS SEE BELOW Normal [facility] Comment on above: Result Comment: Incr [...] and generalized hospitalization. Performed By: #### D [facility] ####[facility] [address] [place], [place] [address]KsMelita Sandoval Sutton Office Visit (Cardiology)on 01-03-2023 Follow-up visit [...] Lead; Status:Active - Perform Order,Retrospective Authorization; Requested for:[id number]; SocHx: Never a smoker Tobacco Use Screening; Status:Complete; Done: [id number] Patient Instructions Continue same medications/treatment. Patient educated [...] atrial fibrillation for which she started seeing [facility] since 2020 after she was hospitalized in [facility] for bradycardia. Adjustment of her medical therapy [...] therapy. Patient is being evaluated recently at [facility] for ablation therapy for atrial fibrillation. [...] had a dual-chamber pacemaker [facility] MRI implanted in June 29, 2021. Clinical [...] possible applicat (more content not included)... Normal [facility] PROF 14(COMP METB)on 023 Albumin [Mass/Vol] 3.8 g/dL Normal 3.4-5.0 [facility] Comment on above: Performed By: #### C LESTER HSTROPN ####[facility] [address] [place] [address]Dr. Lori Sutton Albumin/Globulin [Mass ratio] 1.2 {ratio} Normal [facility] Comment on above: Performed By: #### C LESTER HSTROPN ####[facility] [address] [place] [address]Dr. Lori Sutton ALP [Catalytic activity/Vol] 101 U/L Normal 46-116 [facility] Comment on above: Performed By: #### C LESTER HSTROPN ####[facility] [address] [place] [address]Dr. Lori Sutton ALT [Catalytic activity/Vol] 25 U/L Normal 14-59 [facility] Comment on above: Performed By: #### C LESTER HSTROPN ####[facility] [address] [place] [address]Dr. Lori Sutton Anion gap [Moles/Vol] 15.5 mmol/L Normal [facility] Comment on above: Performed By: #### C LESTER HSTROPN ####[facility] [address] [place] [address]Dr. Lori Sutton AST [Catalytic activity/Vol] 24 U/L Normal 15-37 [facility] Comment on above: Performed By: #### C LESTER, HSTROPN ####[facility] [address] [place] [address]Dr. Lori Sutton Bilirubin [Mass/Vol] 0.8 mg/dL Normal 0.2-1.0 [facility] Comment on above: Performed By: #### C LESTER, HSTROPN ####[facility] [address] [place] [address]Dr. Lori Sutton Calcium [Mass/Vol] 8.8 mg/dL Normal 8.5-10.1 [facility] Comment on above: Performed By: #### C LESTER, HSTROPN ####[facility] [address] [place] [address]Dr. Lori Sutton Chloride [Moles/Vol] 105 mmol/L Normal 98-107 [facility] Comment on above: Performed By: #### C LESTER, HSTROPN ####[facility] [address] [place] [address]Dr. Lori Sutton CO2 [Moles/Vol] 24.5 mmol/L Normal 21.0-32.0 [facility] Comment on above: Performed By: #### C LESTER, HSTROPN ####[facility] [address] [place] [address]Dr. Lori Sutton Creatinine [Mass/Vol] 1.28 mg/dL Critically high 0.55-1.02 [facility] Comment on above: Performed By: #### C MP, HSTROPN ####[facility] [address] [place] [address]Dr. Lori Sutton EGFR-AF BRAZILIAN 49 mL/min/1.73m2 Critically low >=60 [facility] Comment on above: Performed By: #### C MP, HSTROPN ####[facility] [address] [place] [address]Dr. Lori Sutton EGFR-NON AF BRAZILIAN 40 mL/min/1.73m2 Critically low >=60 [facility] Comment on above: Performed By: #### C LESTER, HSTROPN ####[facility] [address] [place] [address]Dr. Lori Sutton Globulin (S) [Mass/Vol] 3.2 g/dL Normal [facility] Comment on above: Performed By: #### C LESTER, HSTROPN ####[facility] [address] [place] [address]Dr. Lori Sutton Glucose [Mass/Vol] 230 mg/dL Critically high 74-106 [facility] Comment on above: Performed By: #### C LESTER, HSTROPN ####[facility] [address] [place], [place] [address]Dr. Lori Sutton Potassium [Moles/Vol] 4.0 mmol/L Normal 3.5-5.1 [facility] Comment on above: Performed By: #### C LESTER, HSTROPN ####[facility] [address] [place], [place] [address]Dr. Lori Sutton Protein [Mass/Vol] 7.0 g/dL Normal 6.4-8.2 [facility] Comment on above: Performed By: #### C LESTER, HSTROPN ####[facility] [address] [place], [place] [address]Dr. Lori Sutton Sodium [Moles/Vol] 141 mmol/L Normal 136-145 [facility] Comment on above: Performed By: #### C LESTER, HSTROPN ####[facility] [address] [place] [address]Dr. Lori Sutton Urea nitrogen [Mass/Vol] 28.0 mg/dL Critically high 7.0-18.0 [facility] Comment on above: Performed By: #### C LESTER, HSTROPN ####[facility] [address] [place] [address]Dr. Lori Sutton Urea nitrogen/Creatinine [Mass ratio] 21.9 mg/mg Normal [facility] Comment on above: Performed By: #### C MP, HSTROPN ####[facility] [address] [place] [address]DrMelita Sutton TROPONIN, HIGH SENSITIVITYon 01-03-2023 HSTROP 74.5 pg/mL Critically high 4.0-51.3 [facility] Comment on above: Result Comment: CUT- OFF POINTS HAVE BEEN ESTABLISHED BASED ON THE FOURTH UNIVERSAL DEFINITIONS OF MYOCARDIAL INFARCTION. THE UPPER REFERENCE LIMIT (URL) OF TROPONIN, DEFINED THE 99TH PERCENTILE OF cTnI DISTRIBUTION IN A REFERENCE POPULATION, HAS BEEN CONFIRMED THE DECISION THRESHOLD FOR MD DIAGNOSIS. Performed By: #### C LESTER HSTROPN ####[facility] [address] [place] [address]DrMelita Sutton Tobacco Screening.on 023 Fall risk assessment a) No falls within the last year [facility] Work Phone: Tobacco use status CPHS b) No [facility] Work Phone: Tobacco Screening. Yes [facility] Work Phone: AMYLASEon 01-02-2023 Amylase [Catalytic activity/Vol] 37 U/L Normal 25-115 [facility] Comment on above: Performed By: #### B ENVELOPE MACHINE OPERATOR, GERRY, CMP #### [facility] [address] [place] [address] Dr. Lori Sutton BNPon 01-02-2023 Natriuretic peptide B (Bld) [Mass/Vol] 690.0 pg/mL Normal <=1,800.0 [facility] Comment on above: Performed By: #### B ENVELOPE MACHINE OPERATOR, GERRY, CMP ####[facility] [address] [place] [address]Dr. Lori Sutton CBC AUTO DIFFon 01-02-2023 BASO # 0.0 103/ul Normal 0.0-0.1 [facility] Comment on above: Performed By: #### C BC #### [facility] [address] [place] [address] Dr. Lori Sutton Basophils/100 WBC (Bld) 0.6 % Normal 0.2-2.0 [facility] Comment on above: Performed By: #### C BC #### [facility] [address] [place] [address] Dr. Lori Sutton EO # 0.2 103/ul Normal 0.0-0.7 [facility] Comment on above: Performed By: #### C BC #### [facility] [address] [place] [address] Dr. Lori Sutton Eosinophils/100 WBC (Bld) 2.8 % Normal 0.9-7.0 [facility] Comment on above: Performed By: #### C BC #### [facility] [address] [place] [address] Dr. Lori Sutton Erythrocyte distribution width (RBC) [Ratio] 13.8 % Normal 11.0-15.0 [facility] Comment on above: Performed By: #### C BC #### [facility] [address] [place] [address] Dr. Lori Sutton Hematocrit (Bld) [Volume fraction] 46.3 % Normal 36.0-48.0 [facility] Comment on above: Performed By: #### C BC #### [facility] [address] [place] [address] Dr. Lori Sutton Hemoglobin (Bld) [Mass/Vol] 15.0 g/dL Normal 12.0-16.0 [facility] Comment on above: Performed By: #### C BC #### [facility] [address] [place] [address] Dr. Lori Sutton IG # 0.01 10e3/ul Normal 0.00-0.03 [facility] Comment on above: Performed By: #### C BC #### [facility] [address] [place] [address] Dr. Lori Sutton IG % 0.2 % Normal 0.0-0.5 [facility] Comment on above: Performed By: #### C BC #### [facility] [address] [place] [address] Dr. Lori Sutton LYMPH # 1.1 103/ul Critically low 1.2-3.8 [facility] Comment on above: Performed By: #### C BC #### [facility] [address] [place] [address] Dr. Lori Sutton Lymphocytes/100 WBC (Bld) 17.6 % Critically low 20.5-60.0 [facility] Comment on above: Performed By: #### C BC #### [facility] [address] [place] [address] Dr. Lori Sutton MANUAL DIFF REQ NO Normal [facility] Comment on above: Performed By: #### C BC #### [facility] [address] [place] [address] Dr. Lori Sutton MCH (RBC) [Entitic mass] 29.7 pg Normal 26.7-34.0 [facility] Comment on above: Performed By: #### C BC #### [facility] [address] [place] [address] Dr. Lori Sutton MCHC (RBC) [Mass/Vol] 32.4 g/dL Normal 29.9-35.2 [facility] Comment on above: Performed By: #### C BC #### [facility] [address] [place] [address] Dr. Lori Sutton MCV (RBC) [Entitic vol] 91.7 fL Normal 81.0-99.0 [facility] Comment on above: Performed By: #### C BC #### [facility] [address] [place] [address] Dr. Lori Sutton MONO # 0.4 103/ul Normal 0.3-0.8 [facility] Comment on above: Performed By: #### C BC #### [facility] [address] [place] [address] Dr. Lori Sutton Monocytes/100 WBC (Bld) 6.2 % Normal 1.7-12.0 [facility] Comment on above: Performed By: #### C BC #### [facility] [address] [place] [address] Dr. Lori Sutton NEUT # 4.6 103/ul Normal 1.4-6.5 [facility] Comment on above: Performed By: #### C BC #### [facility] [address] [place] [address] Dr. Lori Sutton Neutrophils/100 WBC (Bld) 72.6 % Normal 43.0-75.0 [facility] Comment on above: Performed By: #### C BC #### [facility] [address] [address] [address] Lori Sutton Platelet mean volume (Bld) [Entitic vol] 10.3 fL Normal 9.5-13.5 [facility] Comment on above: Performed By: #### C BC #### [facility] [address] [address] [address] Lori Sutton PLT 207 103/ul Normal 150-450 [facility] Comment on above: Performed By: #### C BC #### [facility] [address] [place] [address] Dr. Lori Sutton RBC 5.05 106/ul Normal 4.20-5.40 [facility] Comment on above: Performed By: #### C BC #### [facility] [address] [address] [address] Lori Sutton WBC 6.3 103/ul Normal 4.0-11.0 [facility] Comment on above: Performed By: #### C BC #### [facility] [address] [place] [address] Dr. Lori Sutton PROF 14(COMP METB)on 023 Albumin [Mass/Vol] 3.9 g/dL Normal 3.4-5.0 [facility] Comment on above: Performed By: #### B ENVELOPE MACHINE OPERATORGERRY, CMP ####[facility] [address] [address]DrMelita Sutton Albumin/Globulin [Mass ratio] 1.2 {ratio} Normal [facility] Comment on above: Performed By: #### B ENVELOPE MACHINE OPERATORGERRY, CMP ####[facility] [address] [address]DrMelita Sutton ALP [Catalytic activity/Vol] 98 U/L Normal 46-116 [facility] Comment on above: Performed By: #### B ENVELOPE MACHINE OPERATORGERRY, CMP ####[facility] [address] [address]Dr. Lori Sutton ALT [Catalytic activity/Vol] 24 U/L Normal 14-59 [facility] Comment on above: Performed By: #### B ENVELOPE MACHINE OPERATOR, GERRY, CMP ####[facility] [address] [address]Dr. Lori Sutton Anion gap [Moles/Vol] 12.0 mmol/L Normal [facility] Comment on above: Performed By: #### B ENVELOPE MACHINE OPERATOR, GERRY, CMP ####[facility] [address] [place], [place] [address]Dr. Lori Sutton AST [Catalytic activity/Vol] 25 U/L Normal 15-37 [facility] Comment on above: Performed By: #### B ENVELOPE MACHINE OPERATOR, GERRY, CMP ####[facility] [address] [place], [place] [address]Dr. Lori Sutton Bilirubin [Mass/Vol] 0.8 mg/dL Normal 0.2-1.0 [facility] Comment on above: Performed By: #### B ENVELOPE MACHINE OPERATOR, GERRY, CMP ####[facility] [address] [place], [place] [address]Dr. Lori Sutton Calcium [Mass/Vol] 9.2 mg/dL Normal 8.5-10.1 [facility] Comment on above: Performed By: #### B ENVELOPE MACHINE OPERATOR, GERRY, CMP ####[facility] [address] [place], [place] [address]Dr. Lori Sutton Chloride [Moles/Vol] 107 mmol/L Normal 98-107 [facility] Comment on above: Performed By: #### B ENVELOPE MACHINE OPERATOR, GERRY, CMP ####[facility] [address] [place], [place] [address]Dr. Lori Sutton CO2 [Moles/Vol] 28.6 mmol/L Normal 21.0-32.0 [facility] Comment on above: Performed By: #### B ENVELOPE MACHINE OPERATOR, GERRY, CMP ####[facility] [address] [place], [place] [address]Dr. Lori Sutton Creatinine [Mass/Vol] 1.08 mg/dL Critically high 0.55-1.02 [facility] Comment on above: Performed By: #### B ENVELOPE MACHINE OPERATOR, GERRY, CMP ####[facility] [address] [address]Dr. Lori Sutton EGFR-AF BRAZILIAN 59 mL/min/1.73m2 Critically low >=60 [facility] Comment on above: Performed By: #### B ENVELOPE MACHINE OPERATOR, GERRY, CMP ####[facility] [address] [address]Dr. Lori Sutton EGFR-NON AF BRAZILIAN 49 mL/min/1.73m2 Critically low >=60 [facility] Comment on above: Performed By: #### B ENVELOPE MACHINE OPERATOR, GERRY, CMP ####[facility] [address] [place], [place] [address]Dr. Lori Sutton Globulin (S) [Mass/Vol] 3.2 g/dL Normal [facility] Comment on above: Performed By: #### B ENVELOPE MACHINE OPERATOR, GERRY, CMP ####[facility] [address] [place], [place] [address]Dr. Lori Sutton Glucose [Mass/Vol] 103 mg/dL Normal 74-106 [facility] Comment on above: Performed By: #### B ENVELOPE MACHINE OPERATOR, GERRY, CMP ####[facility] [address] [place], [place] [address]Dr. Lori Sutton Potassium [Moles/Vol] 4.6 mmol/L Normal 3.5-5.1 [facility] Comment on above: Performed By: #### B ENVELOPE MACHINE OPERATOR, GERRY, CMP ####[facility] [address] [place], [place] [address]Dr. Lori Sutton Protein [Mass/Vol] 7.1 g/dL Normal 6.4-8.2 [facility] Comment on above: Performed By: #### B ENVELOPE MACHINE OPERATOR, GERRY, CMP ####[facility] [address] [place], [place] [address]Dr. Lori Sutton Sodium [Moles/Vol] 143 mmol/L Normal 136-145 [facility] Comment on above: Performed By: #### B ENVELOPE MACHINE OPERATOR, GERRY, CMP ####[facility] [address] [place], [place] [address]Dr. Lori Sutton Urea nitrogen [Mass/Vol] 29.0 mg/dL Critically high 7.0-18.0 [facility] Comment on above: Performed By: #### B WALT, GERRY CMP ####[facility] [address] [place], [place] [address]Qu. Lori Sutton Urea nitrogen/Creatinine [Mass ratio] 26.9 mg/mg Normal [facility] Comment on above: Performed By: #### B WALT, GERRY CMP ####[facility] [address] [place], [place] [address]Ae. Lori Sutton XR CHEST 2 Von 01-02-2023 [...] ARI LEVY Date: 2023-01-02 12:33 Normal [facility] Office Visit (Cardiology)on 12-25-2022 Follow-up visit [...] AF includes Amiodarone (d/c?d for concerns of intermediate side effects), tikosyn (prolonged OTc), sotalol and DCCV (09/2022). Symptoms of her AF include fatigue and BRAY. Pt follows with Dr Stover for management of her AF. Pt has previously been on Amio but was concerned about intermediate side effects. She was then put on [...] AV CONDUCTION @ 109 bpm Echo 08/2022 ([facility]): LVEF 40%, moderate anteroseptal hypokinesis with wall [...] PM S (more content not included)... [facility] Alkaline phosphatase [Enzyma tic activity/volume] in Serum or PlasmaOrdered By: Wilbur Watson on 11-27-2022 ALP [Catalytic activity/Vol] 67 U/L 34-104 [facility] Amylase [Enzymatic activity/ volume] in Serum or PlasmaOrdered By: Wilbur Watson on 11-27-2022 Amylase [Catalytic activity/Vol] 24 U/L 29-103 [facility] Bilirubin.direct [Mass/volum e] in Serum or PlasmaOrdered By: Wilbur Watson on 11-27-2022 Bilirubin.direct [Mass/Vol] 0.20 mg/dL 0.03-0.18 [facility] Bilirubin.total [Mass/volume ] in Serum or PlasmaOrdered By: Wilbur Watson on 11-27-2022 Bilirubin [Mass/Vol] 0.8 mg/dL 0.3-1.0 [facility] Lipase [Enzymatic activity/v olume] in Serum or PlasmaOrdered By: Wilbur Watson on 11-27-2022 Lipase [Catalytic activity/Vol] 31.0 U/L 11.0-82.0 [facility] Serum or plasma non-glucuron idated bilirubin measurement (mass/volume)Ordered By: Wilbur Watson on 11-27-2022 Bilirubin.indirect [Mass/Vol] 0.6 mg/dL [facility] Basophils Auto (Bld) [#/Vol] Ordered By: Wilbur Watson on 11-20-2022 Basophils (Bld) [#/Vol] 0.1 10*3/uL 0.0-0.2 [facility] Basophils/100 WBC Auto (Bld) Ordered By: Wilbur Watson on 11-20-2022 Basophils/100 WBC (Bld) 0.9 % . [facility] Calcium [Mass/volume] in Ser um or PlasmaOrdered By: Wilbur Watson on 11-20-2022 Calcium [Mass/Vol] 9.5 mg/dL 8.6-10.3 [facility] Carbon dioxide, total [Moles /volume] in Serum or PlasmaOrdered By: Wilbur Watson on 11-20-2022 CO2 [Moles/Vol] 25.5 mmol/L 21.0-31.0 [facility] Chloride [Moles/volume] in S vaughn or PlasmaOrdered By: Wilbur Watson on 11-20-2022 Chloride [Moles/Vol] 107 mmol/L 98-107 [facility] Creatinine [Mass/volume] in Serum or PlasmaOrdered By: Wilbur Watson on 11-20-2022 Creatinine [Mass/Vol] 1.08 mg/dL 0.60-1.20 [facility] Eosinophils Auto (Bld) [#/Vo l]Ordered By: Wilbur Watson on 11-20-2022 Eosinophils (Bld) [#/Vol] 0.3 10*3/uL 0.0-0.45 [facility] Eosinophils/100 WBC Auto (Bl d)Ordered By: Wilbur Watson on 11-20-2022 Eosinophils/100 WBC (Bld) 3.6 % . [facility] Erythrocyte distribution wid th Auto (RBC) [Ratio]Ordered By: Wilbur Watson on 11-20-2022 Erythrocyte distribution width (RBC) [Ratio] 13.9 % 11.9-15.3 [facility] Glucose [Mass/volume] in Ser um or PlasmaOrdered By: Wilbur Watson on 11-20-2022 Glucose [Mass/Vol] 91 mg/dL 70-100 [facility] Comment on above: ADA recommended refe rence rangeRandom Glucose Reference Range is dependent on time and content of last meal. Glucose of more than 200 mg/dL in a nonstressed, ambulatory subject supports the diagnosis of Diabetes Mellitus. Hematocrit Auto (Bld) [Volum e fraction]Ordered By: Wilbur Watson on 11-20-2022 Hematocrit (Bld) [Volume fraction] 46.1 % 34.0-46.4 [facility] Hemoglobin [Mass/volume] in BloodOrdered By: Wilbur Watson on 11-20-2022 Hemoglobin (Bld) [Mass/Vol] 15.2 g/dL 11.8-15.4 [facility] Leukocytes [#/volume] correc anne marie for nucleated erythrocytes in Blood by Automated counOrdered By: Wilbur Watson on 11-20-2022 WBC corrected for nucl RBC Auto (Bld) [#/Vol] 7.0 10*3/uL 3.8-11.6 [facility] Lymphocytes Auto (Bld) [#/Vo l]Ordered By: Wilbur Watson on 11-20-2022 Lymphocytes (Bld) [#/Vol] 1.6 10*3/uL 1.00-4.8 [facility] Lymphocytes/100 WBC Auto (Bl d)Ordered By: Wilbur Watson on 11-20-2022 Lymphocytes/100 WBC (Bld) 23.1 % . [facility] MCH Auto (RBC) [Entitic mass ]Ordered By: Wilbur Watson on 11-20-2022 MCH (RBC) [Entitic mass] 29.4 pg 24.7-34.3 [facility] MCHC Auto (RBC) [Mass/Vol]Or dered By: Wilbur Watson on 11-20-2022 MCHC (RBC) [Mass/Vol] 33.0 g/dL 32.0-35.0 [facility] MCV Auto (RBC) [Entitic vol] Ordered By: Wilbur Watson on 11-20-2022 MCV (RBC) [Entitic vol] 88.9 fL 80-100 [facility] Monocytes Auto (Bld) [#/Vol] Ordered By: Wilbur Watson on 11-20-2022 Monocytes (Bld) [#/Vol] 0.5 10*3/uL 0.0-0.8 [facility] Monocytes/100 WBC Auto (Bld) Ordered By: Wilbur Watson on 11-20-2022 Monocytes/100 WBC (Bld) 7.4 % . [facility] Neutrophils Auto (Bld) [#/Vo l]Ordered By: Wilbur Watson on 11-20-2022 Neutrophils (Bld) [#/Vol] 4.6 10*3/uL 1.8-7.7 [facility] Neutrophils/100 WBC Auto (Bl d)Ordered By: Wilbur Watson on 11-20-2022 Neutrophils/100 WBC (Bld) 65.0 % . [facility] No Panel InformationOrdered By: Wilbur Watson on 04-03-2023 Estimated GFR (CKD-EPI) 51.927 mL/Min [facility] Creatinine Clearance (Chem N/A [facility] Nucleated erythrocytes [Pres ence] in Blood by Automated countOrdered By: Wilbur Watson on 11-20-2022 Nucleated RBC Auto Ql (Bld) 0.1 /100{WBC} 0-0.5 [facility] Platelet mean volume Auto (B ld) [Entitic vol]Ordered By: Wilbur Watson on 11-20-2022 Platelet mean volume (Bld) [Entitic vol] 9.1 fL 6.3-10.7 [facility] Platelets Auto (Bld) [#/Vol] Ordered By: Wilbur Watson on 11-20-2022 Platelets (Bld) [#/Vol] 220 10*3/uL 150-450 [facility] Potassium [Moles/volume] in Serum or PlasmaOrdered By: Wilbur Watson on 11-20-2022 Potassium [Moles/Vol] 4.5 mmol/L 3.5-5.1 [facility] RBC Auto (Bld) [#/Vol]Ordere d By: Wilbur Watson on 11-20-2022 RBC (Bld) [#/Vol] 5.18 10*6/uL 3.60-5.00 [facility] Serum or plasma anion gap de terminationOrdered By: Wilbur Watson on 11-20-2022 Anion gap [Moles/Vol] 12.0 mmol/L 6.0-15.0 [facility] Sodium [Moles/volume] in Ser um or PlasmaOrdered By: Wilbur Watson on 11-20-2022 Sodium [Moles/Vol] 140 mmol/L 136-145 [facility] Urea nitrogen [Mass/volume] in Serum or PlasmaOrdered By: Wilbur Watson on 11-20-2022 Urea nitrogen [Mass/Vol] 31 mg/dL 7-25 [facility] WBC Auto (Bld) [#/Vol]Ordere d By: Wilbur Watson on 11-20-2022 WBC (Bld) [#/Vol] 7.0 10*3/uL 3.8-11.6 [facility] MG MAMM SCREEN 3D MARYBETH CADon 10-16-2022 MG MAMM SCREEN 3D MARYBETH CAD Patient: LESA GOLDEN Exam Date: 10/16/2022 : 1940 Gender:F Ordering : DR CHESTER العلي D.O. Admission #: [id number] Family : Order #: [id number] CLICK HERE TO VIEW EXAM RADIOLOGY REPORT [...] sarcoma cancer at age 45. LOCATION: [facility] BREAST COMPOSITION: Extremely dense, which lowers [...] MD on 10/16/2022 at 14:09 Normal [facility] Office Visit (Cardiology)on 10-13-2022 Follow-up visit [...] Weight Tips; Status:Complete - Retrospective Authorization; Done: [id number] Some eating tips that can help you lose weight.; Status:Complete - Retrospective Authorization; Done: [id number] Gallstones General Surgery Referral Evaluation and Treatment Evaluate AND Treat Status: Hold For - Scheduling,Retrospective Authorization Requested for: 13Oct2022 Persistent atrial fibrillation Renew: Sotalol HCl - 80 MG Oral Tablet (Betapace); TAKE 1 TABLET BY MOUTH TWICE DAILY IO EKG Electrocardiogram- 12 Lead; Status:Complete; Done: 13Oct2022 SocHx: Never a smoker Tobacco Use Screening; Status:Complete; Done: 13Oct2022 Patient Instructions Please bring all medicines, vitamins, [...] Complaint LESA GOLDEN is being [facility] for [facility] [place] [facility]c [facility]. 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 I initially I recommended heart rate control [...] Medication fentany (more content not included)... Normal [employer] Tobacco Screening.on 023 Fall risk assessment a) No falls within the last year [facility] [place] [employer] 250 DO Work Phone: Tobacco use status [facility] b) No [facility]elin 250 DO Work Phone: Tobacco Screening. Yes [facility]elin 250 DO Work Phone: Tobacco Screening.on 023 Fall risk assessment a) No falls within the last year [facility]Tina paredesy 250 DO Work Phone: Tobacco use status [facility] b) No -[facility] evelin 250 DO Work Phone: Basophils Auto (Bld) [#/Vol] Ordered By: Sam Dukes on 09-21-2022 Basophils (Bld) [#/Vol] 0.0 10*3/uL 0.0-0.2 [facility] Basophils/100 WBC Auto (Bld) Ordered By: Sam Dukes on 09-21-2022 Basophils/100 WBC (Bld) 0.7 % . [facility] Creatine kinase [Enzymatic a ctivity/volume] in Serum or PlasmaOrdered By: Debbie Mac on 09-21-2022 CK [Catalytic activity/Vol] 76 U/L 22-269 [facility] Creatinine and Glomerular fi ltration rate.predicted panel (S/P/Bld)Ordered By: Sam Dukes on 09-21-2022 Creatinine [Mass/Vol] 1.08 mg/dL 0.44-1.03 [facility] Eosinophils Auto (Bld) [#/Vo l]Ordered By: Sam Dukes on 09-21-2022 Eosinophils (Bld) [#/Vol] 0.3 10*3/uL 0.0-0.45 [facility] Eosinophils/100 WBC Auto (Bl d)Ordered By: Sam Dukes on 09-21-2022 Eosinophils/100 WBC (Bld) 4.6 % . [facility] Erythrocyte distribution wid th Auto (RBC) [Ratio]Ordered By: Sam Dukes on 09-21-2022 Erythrocyte distribution width (RBC) [Ratio] 13.5 % 11.9-15.3 [facility] Estimated glomerular filtrat ion rate (GFR) non- AmericanOrdered By: Sam Dukes on 09-21-2022 GFR/1.73 sq M.predicted among non-blacks MDRD (S/P/Bld) [Vol rate/Area] 49 mL/Min [facility] Hematocrit Auto (Bld) [Volum e fraction]Ordered By: Sam Dukes on 09-21-2022 Hematocrit (Bld) [Volume fraction] 39.6 % 34.0-46.4 [facility] Hemoglobin [Mass/volume] in BloodOrdered By: Sam Dukes on 09-21-2022 Hemoglobin (Bld) [Mass/Vol] 13.0 g/dL 11.8-15.4 [facility] Laboratory - Chemistry and C hemistry - challengeOrdered By: Debbie Mac on 09-21-2022 Natriuretic peptide B (Bld) [Mass/Vol] 203.0 pg/mL 5-100 [facility] - Chemistry and C hemistry - challengeOrdered By: Sam Dukes on 09-21-2022 Magnesium [Mass/Vol] 1.8 mg/dL 1.6-2.6 [facility] Leukocytes [#/volume] correc anne marie for nucleated erythrocytes in Blood by Automated counOrdered By: Sam Dukes on 09-21-2022 WBC corrected for nucl RBC Auto (Bld) [#/Vol] 5.7 10*3/uL 3.8-11.6 [facility] Lymphocytes Auto (Bld) [#/Vo l]Ordered By: Sam Dukes on 09-21-2022 Lymphocytes (Bld) [#/Vol] 1.1 10*3/uL 1.00-4.8 [facility] Lymphocytes/100 WBC Auto (Bl d)Ordered By: Sam Dukes on 09-21-2022 Lymphocytes/100 WBC (Bld) 18.9 % . [facility] MCH Auto (RBC) [Entitic mass ]Ordered By: Sam Dukes on 09-21-2022 MCH (RBC) [Entitic mass] 29.6 pg 24.7-34.3 [facility] MCHC Auto (RBC) [Mass/Vol]Or dered By: Sam Dukes on 09-21-2022 MCHC (RBC) [Mass/Vol] 32.9 g/dL 32.0-35.0 [facility] MCV Auto (RBC) [Entitic vol] Ordered By: Sam Dukes on 09-21-2022 MCV (RBC) [Entitic vol] 89.8 fL 80-100 [facility] Monocytes Auto (Bld) [#/Vol] Ordered By: Sam Dukes on 09-21-2022 Monocytes (Bld) [#/Vol] 0.4 10*3/uL 0.0-0.8 [facility] Monocytes/100 WBC Auto (Bld) Ordered By: Sam Dukes on 09-21-2022 Monocytes/100 WBC (Bld) 7.6 % . [facility] Neutrophils Auto (Bld) [#/Vo l]Ordered By: Sam Dukes on 09-21-2022 Neutrophils (Bld) [#/Vol] 3.9 10*3/uL 1.8-7.7 [facility] Neutrophils/100 WBC Auto (Bl d)Ordered By: Sam Dukes on 09-21-2022 Neutrophils/100 WBC (Bld) 68.2 % . [facility] No Panel InformationOrdered By: Sam Dukes on 09-21-2022 Estimated GFR () 59 mL/Min [facility] Comment on above: GFR estimated refere nce range: According to KDOQI guidelines, <60 ml/min/1.73m2 is sufficient to diagnose a patient with chronic kidney disease. Pharmacy Creatinine Clearance (Chem 37.27 [facility] Nucleated erythrocytes [Pres ence] in Blood by Automated countOrdered By: Sam Dukes on 09-21-2022 Nucleated RBC Auto Ql (Bld) 0.0 /100{WBC} 0-0.5 [facility] Platelet mean volume Auto (B ld) [Entitic vol]Ordered By: Sam Dukes on 09-21-2022 Platelet mean volume (Bld) [Entitic vol] 9.5 fL 6.3-10.7 [facility] Platelets Auto (Bld) [#/Vol] Ordered By: Sam Dukes on 09-21-2022 Platelets (Bld) [#/Vol] 173 10*3/uL 150-450 [facility] RBC Auto (Bld) [#/Vol]Ordere d By: Sam Dukes on 09-21-2022 RBC (Bld) [#/Vol] 4.41 10*6/uL 3.60-5.00 [facility] Serum or plasma anion gap de terminationOrdered By: Sam Dukes on 09-21-2022 Anion gap [Moles/Vol] 11.0 mmol/L 6.0-15.0 [facility] Serum or plasma calcium mitch urement (mass/volume)Ordered By: Sam Dukes on 09-21-2022 Calcium [Mass/Vol] 8.6 mg/dL 8.2-10.2 [facility] Serum or plasma chloride carlitos surement (moles/volume)Ordered By: Sam Dukes on 09-21-2022 Chloride [Moles/Vol] 107 mmol/L 95-114 [facility] Serum or plasma creatine kin ase MB (CKMB)/total creatine kinase (CK) ratio by calculaOrdered By: Debbie Mac on 09-21-2022 CK.MB Calc [Catalytic fraction] 2.5 % 0.00-2.50 [facility] Serum or plasma creatine kin ase MB measurement (mass/volume)Ordered By: Debbie Mac on 09-21-2022 CK.MB [Mass/Vol] 1.9 ng/mL 0.6-6.3 [facility] Serum or plasma glucose mitch urement (mass/volume)Ordered By: Sam Dukes on 09-21-2022 Glucose [Mass/Vol] 94 mg/dL 70-100 [facility] Comment on above: ADA recommended refe rence rangeRandom Glucose Reference Range is dependent on time and content of last meal. Glucose of more than 200 mg/dL in a nonstressed, ambulatory subject supports the diagnosis of Diabetes Mellitus. Serum or plasma potassium me asurement (moles/volume)Ordered By: Sam Dukes on 09-21-2022 Potassium [Moles/Vol] 3.9 mmol/L 3.5-5.1 [facility] Serum or plasma sodium measu rement (moles/volume)Ordered By: Sam Dukes on 09-21-2022 Sodium [Moles/Vol] 137 mmol/L 136-146 [facility] Serum or plasma total carbon dioxide measurement (moles/volume)Ordered By: Sam Dukes on 09-21-2022 CO2 [Moles/Vol] 22.9 mmol/L 22.0-30.0 [facility] Serum or plasma urea nitroge n measurement (mass/volume)Ordered By: Sam Dukes on 09-21-2022 Urea nitrogen [Mass/Vol] 18 mg/dL 9-23 [facility] Troponin I.cardiac [Mass/vol ume] in Serum or Plasma by High sensitivity methodOrdered By: Debbie Mac on 09-21-2022 Troponin I.cardiac High sensitivity method [Mass/Vol] 9 pg/mL 0-15 [facility] WBC Auto (Bld) [#/Vol]Ordere d By: Sam Dukes on 09-21-2022 WBC (Bld) [#/Vol] 5.7 10*3/uL 3.8-11.6 [facility] Glucose Glucometer (BldC) [M ass/Vol]Ordered By: Sam Dukes on 09-19-2022 Glucose [Mass/Vol] 93 mg/dL [facility] Comment on above: Random Glucose Refer ence Range is dependent on time and content of last meal. Glucose of more than 200 mg/dL in a nonstressed, ambulatory subject supports the diagnosis of Diabetes Mellitus. No Panel InformationOrdered By: Sam Dukes on 09-19-2022 Bedside Glucose Comment Glu2: cleaned meter [facility] Activated partial thrombopla stin time (aPTT) in platelet poor plasma by coagulation aOrdered By: Indy Rolon on 09-17-2022 aPTT Coag (PPP) [Time] 40.4 s 25.1-36.5 [facility] Automated erythrocytes count in urine sediment (number/area)Ordered By: Indy Rolon on 09-17-2022 RBC Auto (Urine sed) [#/Area] 10-19 [HPF] 0-4 [facility] Automated leukocytes count i n urine sediment (number/area)Ordered By: Indy Rolon on 09-17-2022 WBC Auto (Urine sed) [#/Area] 20-49 [HPF] 0-4 [facility] Automated urine hyaline cast s count (number/volume)Ordered By: Indy Rolon on 09-17-2022 Hyaline casts Auto (U) [#/Vol] 3-4 [LPF] 0-1 [facility] Basophils Auto (Bld) [#/Vol] Ordered By: Indy Rolon on 09-17-2022 Basophils (Bld) [#/Vol] 0.0 10*3/uL 0.0-0.2 [facility] Basophils/100 WBC Auto (Bld) Ordered By: Indy Rolon on 09-17-2022 Basophils/100 WBC (Bld) 0.6 % . [facility] Bilirubin Test strip Ql (U)O rdered By: Indy Rolon on 09-17-2022 Bilirubin Ql (U) Negative Negative [facility] Body fluid albumin measureme nt (mass/volume)Ordered By: Indy Rolon on 09-17-2022 Albumin (Body fld) [Mass/Vol] 4.1 g/dL 3.2-5.5 [facility] Casts typing in urine sedime nt by light microscopyOrdered By: Indy Rolon on 09-17-2022 Casts LM Nom (Urine sed) None seen [LPF] None Seen [facility] Color Auto (U)Ordered By: Jordan Rolon on 09-17-2022 Color (U) Dark yellow Yellow [facility] Creatinine and Glomerular fi ltration rate.predicted panel (S/P/Bld)Ordered By: Indy Rolon on 09-17-2022 Creatinine [Mass/Vol] 1.23 mg/dL 0.44-1.03 [facility] Eosinophils Auto (Bld) [#/Vo l]Ordered By: Indy Rolon on 09-17-2022 Eosinophils (Bld) [#/Vol] 0.3 10*3/uL 0.0-0.45 [facility] Eosinophils/100 WBC Auto (Bl d)Ordered By: Indy Rolon on 09-17-2022 Eosinophils/100 WBC (Bld) 3.5 % . [facility] Erythrocyte distribution wid th Auto (RBC) [Ratio]Ordered By: Indy Rolon on 09-17-2022 Erythrocyte distribution width (RBC) [Ratio] 13.5 % 11.9-15.3 [facility] Estimated glomerular filtrat ion rate (GFR) non- AmericanOrdered By: Indy Rolon on 09-17-2022 GFR/1.73 sq M.predicted among non-blacks MDRD (S/P/Bld) [Vol rate/Area] 42 mL/Min [facility] Globulin Calc (S) [Mass/Vol] Ordered By: Indy Rolon on 09-17-2022 Globulin (S) [Mass/Vol] 2.2 g/dL [facility] Hematocrit Auto (Bld) [Volum e fraction]Ordered By: Indy Rolon on 09-17-2022 Hematocrit (Bld) [Volume fraction] 43.5 % 34.0-46.4 [facility] Hemoglobin [Mass/volume] in BloodOrdered By: Indy Rolon on 09-17-2022 Hemoglobin (Bld) [Mass/Vol] 14.4 g/dL 11.8-15.4 [facility] Ketones Auto test strip (U) [Mass/Vol]Ordered By: Indy Rolon on 09-17-2022 Ketones (U) [Mass/Vol] Trace Negative [facility] Laboratory - Chemistry and C hemistry - challengeOrdered By: Indy Rolon on 09-17-2022 Magnesium [Mass/Vol] 2.1 mg/dL 1.6-2.6 [facility] Natriuretic peptide B (Bld) [Mass/Vol] 292.0 pg/mL 5-100 [facility] Laboratory - CoagulationOrde red By: Indy Rolon on 09-17-2022 PT Coag (PPP) [Time] 23.4 s 9.0-12.9 [facility] Leukocytes [#/volume] correc anne marie for nucleated erythrocytes in Blood by Automated counOrdered By: Indy Rolon on 09-17-2022 WBC corrected for nucl RBC Auto (Bld) [#/Vol] 8.0 10*3/uL 3.8-11.6 [facility] Lymphocytes Auto (Bld) [#/Vo l]Ordered By: Indy Rolon on 09-17-2022 Lymphocytes (Bld) [#/Vol] 1.2 10*3/uL 1.00-4.8 [facility] Lymphocytes/100 WBC Auto (Bl d)Ordered By: Indy Rolon on 09-17-2022 Lymphocytes/100 WBC (Bld) 15.2 % . [facility] MCH Auto (RBC) [Entitic mass ]Ordered By: Indy Rolon on 09-17-2022 MCH (RBC) [Entitic mass] 30.1 pg 24.7-34.3 [facility] MCHC Auto (RBC) [Mass/Vol]Or dered By: Indy Rolon on 09-17-2022 MCHC (RBC) [Mass/Vol] 33.2 g/dL 32.0-35.0 [facility] MCV Auto (RBC) [Entitic vol] Ordered By: Indy Rolon on 09-17-2022 MCV (RBC) [Entitic vol] 90.6 fL 80-100 [facility] Monocyte distribution width [Entitic volume] in Blood by AutomatedOrdered By: Indy Rolon on 09-17-2022 Monocyte distribution width Auto (Bld) [Entitic vol] 19.67 % 0.00-20.00 [facility] Monocytes Auto (Bld) [#/Vol] Ordered By: Indy Rolon on 09-17-2022 Monocytes (Bld) [#/Vol] 0.6 10*3/uL 0.0-0.8 [facility] Monocytes/100 WBC Auto (Bld) Ordered By: Indy Rolon on 09-17-2022 Monocytes/100 WBC (Bld) 7.1 % . [facility] Neutrophils Auto (Bld) [#/Vo l]Ordered By: Indy Rolon on 09-17-2022 Neutrophils (Bld) [#/Vol] 5.9 10*3/uL 1.8-7.7 [facility] Neutrophils/100 WBC Auto (Bl d)Ordered By: Indy Rolon on 09-17-2022 Neutrophils/100 WBC (Bld) 73.6 % . [facility] Nitrite Test strip Ql (U)Ord ered By: Indy Rolon on 09-17-2022 Nitrite Ql (U) Negative Negative [facility] No Panel InformationOrdered By: Indy Rolon on 09-17-2022 Estimated GFR () 51 mL/Min [facility] Comment on above: GFR estimated refere nce range: According to KDOQI guidelines, <60 ml/min/1.73m2 is sufficient to diagnose a patient with chronic kidney disease. Pharmacy Creatinine Clearance (Chem N/A [facility] Nucleated erythrocytes [Pres ence] in Blood by Automated countOrdered By: Indy Rolon on 09-17-2022 Nucleated RBC Auto Ql (Bld) 0.3 /100{WBC} 0-0.5 [facility] Platelet mean volume Auto (B ld) [Entitic vol]Ordered By: Indy Rolon on 09-17-2022 Platelet mean volume (Bld) [Entitic vol] 9.4 fL 6.3-10.7 [facility] Platelet poor plasma interna tional normalized ratio (INR) by coagulation assay (relatOrdered By: Indy Rolon on 09-17-2022 INR Coag (PPP) [Relative time] 2.0 {INR} [facility] Comment on above: INR Therapeutic Rang [...] 09-17-2022 Platelets (Bld) [#/Vol] 203 10*3/uL 150-450 [facility] Protein Auto test strip (U) [Mass/Vol]Ordered By: Indy Rolon on 09-17-2022 Protein (U) [Mass/Vol] Trace mg/dL Negative [facility] Protein [Mass/volume] in Ser um or PlasmaOrdered By: Indy Rolon on 09-17-2022 Protein [Mass/Vol] 6.3 g/dL 6.1-7.9 [facility] RBC Auto (Bld) [#/Vol]Ordere d By: Indy Rolon on 09-17-2022 RBC (Bld) [#/Vol] 4.80 10*6/uL 3.60-5.00 [facility] Serum or plasma alanine mahmood otransferase measurement without P-5'-P (enzymatic activiOrdered By: Indy Rolon on 09-17-2022 ALT No additional P-5'-P [Catalytic activity/Vol] 20 U/L 10-60 [facility] Serum or plasma albumin/glob ulin mass ratioOrdered By: Indy Rolon on 09-17-2022 Albumin/Globulin [Mass ratio] 1.9 {ratio} [facility] Serum or plasma alkaline mia sphatase measurement (enzymatic activity/volume)Ordered By: Indy Rolon on 09-17-2022 ALP [Catalytic activity/Vol] 79 U/L 32-92 [facility] Serum or plasma anion gap de terminationOrdered By: Indy Rolon on 09-17-2022 Anion gap [Moles/Vol] 14.2 mmol/L 6.0-15.0 [facility] Serum or plasma aspartate am inotransferase measurement (enzymatic activity/volume)Ordered By: Indy Rolon on 09-17-2022 AST [Catalytic activity/Vol] 28 U/L 10-42 [facility] Serum or plasma calcium mitch urement (mass/volume)Ordered By: Indy Rolon on 09-17-2022 Calcium [Mass/Vol] 9.4 mg/dL 8.2-10.2 [facility] Serum or plasma chloride carlitos surement (moles/volume)Ordered By: Indy Rolon on 09-17-2022 Chloride [Moles/Vol] 103 mmol/L 95-114 [facility] Serum or plasma glucose mitch urement (mass/volume)Ordered By: Indy Rolon on 09-17-2022 Glucose [Mass/Vol] 94 mg/dL 70-100 [facility] Comment on above: ADA recommended refe rence rangeRandom Glucose Reference Range is dependent on time and content of last meal. Glucose of more than 200 mg/dL in a nonstressed, ambulatory subject supports the diagnosis of Diabetes Mellitus. Serum or plasma potassium me asurement (moles/volume)Ordered By: Indy Rolon on 09-17-2022 Potassium [Moles/Vol] 4.7 mmol/L 3.5-5.1 [facility] Serum or plasma sodium measu rement (moles/volume)Ordered By: Indy Rolon on 09-17-2022 Sodium [Moles/Vol] 138 mmol/L 136-146 [facility] Serum or plasma total biliru bin measurement (mass/volume)Ordered By: Indy Rolon on 09-17-2022 Bilirubin [Mass/Vol] 1.1 mg/dL 0.3-1.2 [facility] Serum or plasma total carbon dioxide measurement (moles/volume)Ordered By: Indy Rolon on 09-17-2022 CO2 [Moles/Vol] 25.5 mmol/L 22.0-30.0 [facility] Serum or plasma urea nitroge n measurement (mass/volume)Ordered By: Indy Rolon on 09-17-2022 Urea nitrogen [Mass/Vol] 24 mg/dL 9-23 [facility] Specific gravity Auto test s trip (U) [Rel density]Ordered By: Indy Rolon on 09-17-2022 Specific gravity (U) [Rel density] 1.024 1.001-1.03 0 [facility] Squamous epithelial cells de tection in urine sediment by light microscopyOrdered By: Indy Rolon on 09-17-2022 Epithelial cells.squamous LM Ql (Urine sed) 10-19 [HPF] 0-2 [facility] Troponin I.cardiac [Mass/vol ume] in Serum or Plasma by High sensitivity methodOrdered By: Indy Rolon on 09-17-2022 Troponin I.cardiac High sensitivity method [Mass/Vol] 8 pg/mL 0-15 [facility] Urine bacteria detection by automated methodOrdered By: Indy Rolon on 09-17-2022 Bacteria Auto Ql (U) 3+ None Seen [facility] Urine clarity by refractomet ry automatedOrdered By: Indy Rolon on 09-17-2022 Clarity Refractometry automated (U) Cloudy Clear [facility] Urine culture routineOrdered By: Indy Rolon on 09-17-2022 Bacteria identified Cx Nom (U) Escherichia coli [facility] Bacteria identified Cx Nom (U) Escherichia coli [facility] Urine glucose measurement by automated test strip (mass/volume)Ordered By: Indy Rolon on 09-17-2022 Glucose Auto test strip (U) [Mass/Vol] Normal mg/dL Normal [facility] Urine hemoglobin detection b y automated test stripOrdered By: Indy Rolon on 09-17-2022 Hemoglobin Auto test strip Ql (U) Trace Negative [facility] Urine leukocyte esterase det ection by automated test stripOrdered By: Indy Rolon on 09-17-2022 Leukocyte esterase Auto test strip Ql (U) 3+ Negative [facility] Urobilinogen Auto test strip (U) [Mass/Vol]Ordered By: Indy Rolon on 09-17-2022 Urobilinogen (U) [Mass/Vol] Normal mg/dL Normal [facility] WBC Auto (Bld) [#/Vol]Ordere d By: Indy Rolon on 09-17-2022 WBC (Bld) [#/Vol] 8.0 10*3/uL 3.8-11.6 [facility] Yeast detection in urine sed iment by light microscopyOrdered By: Indy Rolon on 09-17-2022 Yeast LM Ql (Urine sed) Rare [HPF] None Seen [facility] pH Auto test strip (U)Ordere d By: Indy Rolon on 09-17-2022 pH (U) 5.5 [pH] 5.0-9.0 [facility] Basophils Auto (Bld) [#/Vol] Ordered By: Jay Ceja on 09-05-2022 Basophils (Bld) [#/Vol] 0.0 10*3/uL 0.0-0.2 [facility] Basophils/100 WBC Auto (Bld) Ordered By: Jay Ceja on 09-05-2022 Basophils/100 WBC (Bld) 0.9 % . [facility] Creatinine and Glomerular fi ltration rate.predicted panel (S/P/Bld)Ordered By: Jay Ceja on 09-05-2022 Creatinine [Mass/Vol] 1.57 mg/dL 0.44-1.03 [facility] Eosinophils Auto (Bld) [#/Vo l]Ordered By: Jay Ceja on 09-05-2022 Eosinophils (Bld) [#/Vol] 0.3 10*3/uL 0.0-0.45 [facility] Eosinophils/100 WBC Auto (Bl d)Ordered By: Jay Ceja on 09-05-2022 Eosinophils/100 WBC (Bld) 4.7 % . [facility] Erythrocyte distribution wid th Auto (RBC) [Ratio]Ordered By: Jay Ceja on 09-05-2022 Erythrocyte distribution width (RBC) [Ratio] 13.8 % 11.9-15.3 [facility] Estimated glomerular filtrat ion rate (GFR) non- AmericanOrdered By: Jay Ceja on 09-05-2022 GFR/1.73 sq M.predicted among non-blacks MDRD (S/P/Bld) [Vol rate/Area] 32 mL/Min [facility] Hematocrit Auto (Bld) [Volum e fraction]Ordered By: Jay Ceja on 09-05-2022 Hematocrit (Bld) [Volume fraction] 42.4 % 34.0-46.4 [facility] Hemoglobin [Mass/volume] in BloodOrdered By: Jay Ceja on 09-05-2022 Hemoglobin (Bld) [Mass/Vol] 14.0 g/dL 11.8-15.4 [facility] Leukocytes [#/volume] correc anne marie for nucleated erythrocytes in Blood by Automated counOrdered By: Jay Ceja on 09-05-2022 WBC corrected for nucl RBC Auto (Bld) [#/Vol] 5.6 10*3/uL 3.8-11.6 [facility] Lymphocytes Auto (Bld) [#/Vo l]Ordered By: Jay Ceja on 09-05-2022 Lymphocytes (Bld) [#/Vol] 1.4 10*3/uL 1.00-4.8 [facility] Lymphocytes/100 WBC Auto (Bl d)Ordered By: Jay Ceja on 09-05-2022 Lymphocytes/100 WBC (Bld) 25.6 % . [facility] MCH Auto (RBC) [Entitic mass ]Ordered By: Jay Ceja on 09-05-2022 MCH (RBC) [Entitic mass] 29.7 pg 24.7-34.3 [facility] MCHC Auto (RBC) [Mass/Vol]Or dered By: Jay Ceja on 09-05-2022 MCHC (RBC) [Mass/Vol] 32.9 g/dL 32.0-35.0 [facility] MCV Auto (RBC) [Entitic vol] Ordered By: Jay Ceja on 09-05-2022 MCV (RBC) [Entitic vol] 90.2 fL 80-100 [facility] Monocytes Auto (Bld) [#/Vol] Ordered By: Jay Ceja on 09-05-2022 Monocytes (Bld) [#/Vol] 0.5 10*3/uL 0.0-0.8 [facility] Monocytes/100 WBC Auto (Bld) Ordered By: Jay Ceja on 09-05-2022 Monocytes/100 WBC (Bld) 9.7 % . [facility] Neutrophils Auto (Bld) [#/Vo l]Ordered By: Jay Ceja on 09-05-2022 Neutrophils (Bld) [#/Vol] 3.3 10*3/uL 1.8-7.7 [facility] Neutrophils/100 WBC Auto (Bl d)Ordered By: Jay Ceja on 09-05-2022 Neutrophils/100 WBC (Bld) 59.1 % . [facility] No Panel InformationOrdered By: Jay Ceja on 09-05-2022 Estimated GFR () 38 mL/Min [facility] Comment on above: GFR estimated refere nce range: According to KDOQI guidelines, <60 ml/min/1.73m2 is sufficient to diagnose a patient with chronic kidney disease. Pharmacy Creatinine Clearance (Chem 24.80 [facility] Nucleated erythrocytes [Pres ence] in Blood by Automated countOrdered By: Jay Ceja on 09-05-2022 Nucleated RBC Auto Ql (Bld) 0.2 /100{WBC} 0-0.5 [facility] Platelet mean volume Auto (B ld) [Entitic vol]Ordered By: Jay Ceja on 09-05-2022 Platelet mean volume (Bld) [Entitic vol] 9.2 fL 6.3-10.7 [facility] Platelets Auto (Bld) [#/Vol] Ordered By: Jay Ceja on 09-05-2022 Platelets (Bld) [#/Vol] 190 10*3/uL 150-450 [facility] RBC Auto (Bld) [#/Vol]Ordere d By: Jay Ceja on 09-05-2022 RBC (Bld) [#/Vol] 4.70 10*6/uL 3.60-5.00 [facility] Serum or plasma anion gap de terminationOrdered By: Jay Ceja on 09-05-2022 Anion gap [Moles/Vol] 11.5 mmol/L 6.0-15.0 [facility] Serum or plasma calcium mitch urement (mass/volume)Ordered By: Jay Ceja on 09-05-2022 Calcium [Mass/Vol] 8.9 mg/dL 8.2-10.2 [facility] Serum or plasma chloride carlitos surement (moles/volume)Ordered By: Jay Ceja on 09-05-2022 Chloride [Moles/Vol] 105 mmol/L 95-114 [facility] Serum or plasma glucose mitch urement (mass/volume)Ordered By: Jay Ceja on 09-05-2022 Glucose [Mass/Vol] 103 mg/dL 70-100 [facility] Comment on above: ADA recommended refe rence rangeRandom Glucose Reference Range is dependent on time and content of last meal. Glucose of more than 200 mg/dL in a nonstressed, ambulatory subject supports the diagnosis of Diabetes Mellitus. Serum or plasma potassium me asurement (moles/volume)Ordered By: Jay Ceja on 09-05-2022 Potassium [Moles/Vol] 4.0 mmol/L 3.5-5.1 [facility] Serum or plasma sodium measu rement (moles/volume)Ordered By: Jay Ceja on 09-05-2022 Sodium [Moles/Vol] 140 mmol/L 136-146 [facility] Serum or plasma total carbon dioxide measurement (moles/volume)Ordered By: Jay Ceja on 09-05-2022 CO2 [Moles/Vol] 27.5 mmol/L 22.0-30.0 [facility] Serum or plasma urea nitroge n measurement (mass/volume)Ordered By: Jay Ceja on 09-05-2022 Urea nitrogen [Mass/Vol] 29 mg/dL 9-23 [facility] WBC Auto (Bld) [#/Vol]Ordere d By: Jay Ceja on 09-05-2022 WBC (Bld) [#/Vol] 5.6 10*3/uL 3.8-11.6 [facility] Glucose mean value [Mass/vol ume] in Blood Estimated from glycated hemoglobinOrdered By: Jay Ceja on 09-02-2022 Average glucose Estimated from glycated hemoglobin (Bld) [Mass/Vol] 117 mg/dL [facility] Hemoglobin A1c percentageOrd ered By: Jay Ceja on 09-02-2022 HbA1c (Bld) [Mass fraction] 5.7 % 4.3-5.6 [facility] Comment on above: Increased risk for d iabetes: 5.7 - 6.4diabetes: >6.4glycemic control for adults with diabetes: <7.0 Laboratory - Chemistry and C hemistry - challengeOrdered By: Jay Ceja on 09-02-2022 Magnesium [Mass/Vol] 1.8 mg/dL 1.6-2.6 [facility] Natriuretic peptide B (Bld) [Mass/Vol] 307.0 pg/mL 5-100 [facility] TSH DL <= 0.005 mIU/L QnOrde red By: Jay Ceja on 09-02-2022 TSH Qn 3.39 m[IU]/L 0.45-5.33 [facility] Troponin I.cardiac [Mass/vol ume] in Serum or Plasma by High sensitivity methodOrdered By: Jay Ceja on 09-02-2022 Troponin I.cardiac High sensitivity method [Mass/Vol] 6 pg/mL 0-15 [facility] Albumin [Mass/volume] in Ser um or PlasmaOrdered By: Luis Lennon on 09-01-2022 Albumin [Mass/Vol] 3.7 g/dL 3.2-5.5 [facility] Automated erythrocytes count in urine sediment (number/area)Ordered By: Luis Lennon on 09-01-2022 RBC Auto (Urine sed) [#/Area] 3-4 [HPF] 0-4 [facility] Automated leukocytes count i n urine sediment (number/area)Ordered By: Luis Lennon on 09-01-2022 WBC Auto (Urine sed) [#/Area] 5-9 [HPF] 0-4 [facility] Basophils Auto (Bld) [#/Vol] Ordered By: Luis Lennon on 09-01-2022 Basophils (Bld) [#/Vol] 0.1 10*3/uL 0.0-0.2 [facility] Basophils/100 WBC Auto (Bld) Ordered By: Luis Lennon on 09-01-2022 Basophils/100 WBC (Bld) 0.8 % . [facility] Bilirubin Test strip Ql (U)O rdered By: Luis Lennon on 09-01-2022 Bilirubin Ql (U) Negative Negative [facility] Color Auto (U)Ordered By: Robert Lennon on 09-01-2022 Color (U) Dark yellow Yellow [facility] Creatinine and Glomerular fi ltration rate.predicted panel (S/P/Bld)Ordered By: Luis Lennon on 09-01-2022 Creatinine [Mass/Vol] 1.14 mg/dL 0.44-1.03 [facility] Eosinophils Auto (Bld) [#/Vo l]Ordered By: Luis Lennon on 09-01-2022 Eosinophils (Bld) [#/Vol] 0.3 10*3/uL 0.0-0.45 [facility] Eosinophils/100 WBC Auto (Bl d)Ordered By: Luis Lennon on 09-01-2022 Eosinophils/100 WBC (Bld) 4.1 % . [facility] Erythrocyte distribution wid th Auto (RBC) [Ratio]Ordered By: Luis Lennon on 09-01-2022 Erythrocyte distribution width (RBC) [Ratio] 14.3 % 11.9-15.3 [facility] Estimated glomerular filtrat ion rate (GFR) non- AmericanOrdered By: Luis Lennon on 09-01-2022 GFR/1.73 sq M.predicted among non-blacks MDRD (S/P/Bld) [Vol rate/Area] 46 mL/Min [facility] Globulin Calc (S) [Mass/Vol] Ordered By: Luis Lennon on 09-01-2022 Globulin (S) [Mass/Vol] 2.2 g/dL [facility] Hematocrit Auto (Bld) [Volum e fraction]Ordered By: Luis Lennon on 09-01-2022 Hematocrit (Bld) [Volume fraction] 43.4 % 34.0-46.4 [facility] Hemoglobin [Mass/volume] in BloodOrdered By: Luis Lennon on 09-01-2022 Hemoglobin (Bld) [Mass/Vol] 13.9 g/dL 11.8-15.4 [facility] Ketones Auto test strip (U) [Mass/Vol]Ordered By: Luis Lennon on 09-01-2022 Ketones (U) [Mass/Vol] Trace Negative [facility] - Chemistry and C hemistry - challengeOrdered By: Luis Lennon on 09-01-2022 Natriuretic peptide B (Bld) [Mass/Vol] 445.0 pg/mL 5-100 [facility] Laboratory - UrinalysisOrder ed By: Luis Lennon on 09-01-2022 Hyaline casts LM Ql (Urine sed) 0-8 [LPF] 0-8 [facility] Leukocytes [#/volume] correc anne marie for nucleated erythrocytes in Blood by Automated counOrdered By: Luis Lennon on 09-01-2022 WBC corrected for nucl RBC Auto (Bld) [#/Vol] 8.1 10*3/uL 3.8-11.6 [facility] Lymphocytes Auto (Bld) [#/Vo l]Ordered By: Luis Lennon on 09-01-2022 Lymphocytes (Bld) [#/Vol] 1.1 10*3/uL 1.00-4.8 [facility] Lymphocytes/100 WBC Auto (Bl d)Ordered By: Luis Lennon on 09-01-2022 Lymphocytes/100 WBC (Bld) 13.9 % . [facility] MCH Auto (RBC) [Entitic mass ]Ordered By: Luis Lennon on 09-01-2022 MCH (RBC) [Entitic mass] 29.3 pg 24.7-34.3 [facility] MCHC Auto (RBC) [Mass/Vol]Or dered By: Luis Lennon on 09-01-2022 MCHC (RBC) [Mass/Vol] 32.0 g/dL 32.0-35.0 [facility] MCV Auto (RBC) [Entitic vol] Ordered By: Luis Lennon on 09-01-2022 MCV (RBC) [Entitic vol] 91.4 fL 80-100 [facility] Monocyte distribution width [Entitic volume] in Blood by AutomatedOrdered By: Luis Lennon on 09-01-2022 Monocyte distribution width Auto (Bld) [Entitic vol] 16.84 % 0.00-20.00 [facility] Monocytes Auto (Bld) [#/Vol] Ordered By: Luis Lennon on 09-01-2022 Monocytes (Bld) [#/Vol] 0.6 10*3/uL 0.0-0.8 [facility] Monocytes/100 WBC Auto (Bld) Ordered By: Luis Lennon on 09-01-2022 Monocytes/100 WBC (Bld) 7.5 % . [facility] Neutrophils Auto (Bld) [#/Vo l]Ordered By: Luis Lennon on 09-01-2022 Neutrophils (Bld) [#/Vol] 5.9 10*3/uL 1.8-7.7 [facility] Neutrophils/100 WBC Auto (Bl d)Ordered By: Luis Lennon on 09-01-2022 Neutrophils/100 WBC (Bld) 73.7 % . [facility] Nitrite Test strip Ql (U)Ord ered By: Luis Lennon on 09-01-2022 Nitrite Ql (U) Negative Negative [facility] No Panel InformationOrdered By: Luis Lennon on 09-01-2022 Estimated GFR () 56 mL/Min [facility] Comment on above: GFR estimated refere nce range: According to KDOQI guidelines, <60 ml/min/1.73m2 is sufficient to diagnose a patient with chronic kidney disease. Pharmacy Creatinine Clearance (Chem 35.69 [facility] Nucleated erythrocytes [Pres ence] in Blood by Automated countOrdered By: Luis Lennon on 09-01-2022 Nucleated RBC Auto Ql (Bld) 0.1 /100{WBC} 0-0.5 [facility] Platelet mean volume Auto (B ld) [Entitic vol]Ordered By: Luis Lennon on 09-01-2022 Platelet mean volume (Bld) [Entitic vol] 9.1 fL 6.3-10.7 [facility] Platelets Auto (Bld) [#/Vol] Ordered By: Luis Lennon on 09-01-2022 Platelets (Bld) [#/Vol] 208 10*3/uL 150-450 [facility] Protein Auto test strip (U) [Mass/Vol]Ordered By: Luis Lennon on 09-01-2022 Protein (U) [Mass/Vol] 30 mg/dL Negative Fi [facility] Protein [Mass/volume] in Ser um or PlasmaOrdered By: Luis Lennon on 09-01-2022 Protein [Mass/Vol] 5.9 g/dL 6.1-7.9 [facility] RBC Auto (Bld) [#/Vol]Ordere d By: Luis Lennon on 09-01-2022 RBC (Bld) [#/Vol] 4.74 10*6/uL 3.60-5.00 [facility] Serum or plasma alanine mahmood otransferase measurement without P-5'-P (enzymatic activiOrdered By: Luis Lennon on 09-01-2022 ALT No additional P-5'-P [Catalytic activity/Vol] 33 U/L 10-60 [facility] Serum or plasma albumin/glob ulin mass ratioOrdered By: Luis Lennon on 09-01-2022 Albumin/Globulin [Mass ratio] 1.7 {ratio} [facility] Serum or plasma alkaline mia sphatase measurement (enzymatic activity/volume)Ordered By: Luis Lennon on 09-01-2022 ALP [Catalytic activity/Vol] 70 U/L 32-92 [facility] Serum or plasma anion gap de terminationOrdered By: Luis Lennon on 09-01-2022 Anion gap [Moles/Vol] 9.3 mmol/L 6.0-15.0 [facility] Serum or plasma aspartate am inotransferase measurement (enzymatic activity/volume)Ordered By: Luis Lennon on 09-01-2022 AST [Catalytic activity/Vol] 33 U/L 10-42 [facility] Serum or plasma calcium mitch urement (mass/volume)Ordered By: Luis Lennon on 09-01-2022 Calcium [Mass/Vol] 9.0 mg/dL 8.2-10.2 [facility] Serum or plasma chloride carlitos surement (moles/volume)Ordered By: Luis Lennon on 09-01-2022 Chloride [Moles/Vol] 109 mmol/L 95-114 [facility] Serum or plasma glucose mitch urement (mass/volume)Ordered By: Luis Lennon on 09-01-2022 Glucose [Mass/Vol] 95 mg/dL 70-100 [facility] Comment on above: ADA recommended refe rence rangeRandom Glucose Reference Range is dependent on time and content of last meal. Glucose of more than 200 mg/dL in a nonstressed, ambulatory subject supports the diagnosis of Diabetes Mellitus. Serum or plasma potassium me asurement (moles/volume)Ordered By: Luis Lennon on 09-01-2022 Potassium [Moles/Vol] 4.2 mmol/L 3.5-5.1 [facility] Serum or plasma sodium measu rement (moles/volume)Ordered By: Luis Lennon on 09-01-2022 Sodium [Moles/Vol] 138 mmol/L 136-146 [facility] Serum or plasma total biliru bin measurement (mass/volume)Ordered By: Luis Lennon on 09-01-2022 Bilirubin [Mass/Vol] 1.3 mg/dL 0.3-1.2 [facility] Comment on above: Samples from patient s who have taken Naproxen have shown spurious elevation in Total Bilirubin levels. A metabolite of Naproxen, O-desmethylnaproxen, has been shown to interfere with the Dc-Day method for measuring Total Bilirubin. Serum or plasma total carbon dioxide measurement (moles/volume)Ordered By: Luis Lennon on 09-01-2022 CO2 [Moles/Vol] 23.9 mmol/L 22.0-30.0 [facility] Serum or plasma urea nitroge n measurement (mass/volume)Ordered By: Luis Lennon on 09-01-2022 Urea nitrogen [Mass/Vol] 23 mg/dL 9-23 [facility] Specific gravity Auto test s trip (U) [Rel density]Ordered By: Luis Lennon on 09-01-2022 Specific gravity (U) [Rel density] 1.022 1.001-1.03 0 [facility] Squamous epithelial cells de tection in urine sediment by light microscopyOrdered By: Luis Lennon 09-01-2022 Epithelial cells.squamous LM Ql (Urine sed) 5-9 [HPF] 0-2 [facility] Troponin I.cardiac [Mass/vol ume] in Serum or Plasma by High sensitivity methodOrdered By: Luis Lennon on 09-01-2022 Troponin I.cardiac High sensitivity method [Mass/Vol] 7 pg/mL 0-15 [facility] Urine bacteria detection by automated methodOrdered By: Luis Lennon on 09-01-2022 Bacteria Auto Ql (U) None seen None Seen [facility] Urine clarity by refractomet ry automatedOrdered By: Luis Lennon on 09-01-2022 Clarity Refractometry automated (U) Clear Clear [facility] Urine culture routineOrdered By: Luis Lennon on 09-01-2022 Bacteria identified Cx Nom (U) 2 Days [facility] Bacteria identified Cx Nom (U) 2 Days [facility] Urine glucose measurement by automated test strip (mass/volume)Ordered By: Luis Lennon on 09-01-2022 Glucose Auto test strip (U) [Mass/Vol] Normal mg/dL Normal [facility] Urine hemoglobin detection b y automated test stripOrdered By: Luis Lennon on 09-01-2022 Hemoglobin Auto test strip Ql (U) Negative Negative [facility] Urine leukocyte esterase det ection by automated test stripOrdered By: Luis Lennon on 09-01-2022 Leukocyte esterase Auto test strip Ql (U) 2+ Negative [facility] Urobilinogen Auto test strip (U) [Mass/Vol]Ordered By: Luis Lennon on 09-01-2022 Urobilinogen (U) [Mass/Vol] Normal mg/dL Normal [facility] WBC Auto (Bld) [#/Vol]Ordere d By: Luis Lennon on 09-01-2022 WBC (Bld) [#/Vol] 8.1 10*3/uL 3.8-11.6 [facility] pH Auto test strip (U)Ordere d By: Luis Lennon on 09-01-2022 pH (U) 5.5 [pH] 5.0-9.0 [facility] Office Visit (Cardiology)on 06-26-2022 Follow-up visit [...] Signs Recorded: 26Jun2022 02:26PM Heart Rate71, Apical [id number], LUE, Sitting Qkgifrjqh98, LUE, Sitting Height4 ft 11 in Xubwjn169 lb BMI Regaqvhqxd16.92 kg/m2 BSA Calculated1.69 Tobacco Useb) No Falls Screening (Age 18+)a) No falls within the last year EKG COMPLETED IN OFFICE Physical Exam Constitutional: alert and in no acute distress. Neck: neck is supple, symmetric, trachea midline, no masses and no thyromegaly . Pulmonary: no increased work of breathing or signs of respiratory distress (more content not included)... Normal [employer] Tobacco Screening.on 022 Fall risk assessment a) No falls within the last year [facility] [employer] 250 DO Work Phone: Tobacco use status [facility] b) No [facility] [employer] 250 DO Work Phone: [place] GASTRIC EMPTYon [...] FARRAH LOGAN Date: 2022-05-12 12:48 Normal [facility] Covid-19 PCR (CVDTB)on SARS-CoV-2 (COVID-19) RNA GUILLEROM+probe Ql (Unsp spec) Not detected Normal NOT DETECTED [facility] Comment on above: Result Comment: This test is not yet approved or cleared by the [place] FDA. When there are no FDA-approved or cleared tests available, and other criteria are met, FDA can make tests available under an emergency access mechanism called an Emergency Use Authorization (EUA). The EUA for this test is supported by the [place] of Health and Human Service's (HHS's) declaration [...] consistent with SARS-CoV-2. Performed By: #### [facility] #### [facility] [address] [address] [address] Lori Sutton Office Visit (Cardiology)on 03-10-2022 [...] Weight Tips; Status:Complete - Retrospective Authorization; Done: [id number] Some eating tips that can help you lose weight.; Status:Complete - Retrospective Authorization; Done: [id number] Persistent atrial fibrillation IO EKG Electrocardiogram- 12 Lead; Status:Complete; Done: [id number] SocHx: Never a smoker Tobacco Use Screening; Status:Complete; Done: [id number] Patient Instructions Please bring all medicines, vitamins, [...] of, Dr. 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 She reports she underwent esophageal dilatation not too long ago. Her recent device check and EKG today demonstrate maintenance of sinus rhythm. Recent laboratory data showed creatinine 1.6. Previous echocardiogram showed LV systolic function in the normal range and a previous stress test was negative in [place]. Assessment 1. Persistent atrial fibrillation with clinical [...] tired. Cardiovascular: (more content not included)... Normal [employer] Tobacco Screening.on 022 Fall risk assessment a) No falls within the last year [facility] [employer] [employer] [facility] DO Work Phone: Tobacco use status [facility] b) No -[facility] [employer] [employer] DO Work Phone: Albumin [Mass/volume] in Ser um or PlasmaOrdered By: John Mims on 03-09-2022 Albumin [Mass/Vol] 3.7 g/dL 3.2-5.5 [facility] Basophils Auto (Bld) [#/Vol] Ordered By: John Mims on 03-09-2022 Basophils (Bld) [#/Vol] 0.0 10*3/uL 0.0-0.2 [facility] Basophils/100 WBC Auto (Bld) Ordered By: John Mims on 03-09-2022 Basophils/100 WBC (Bld) 0.7 % . [facility] Blood hemoglobin measurement (mass/volume)Ordered By: John Mims on 03-09-2022 Hemoglobin (Bld) [Mass/Vol] 13.7 g/dL 11.8-15.4 [facility] Blood leukocytes automated c ount (number/volume)Ordered By: John Mims on 03-09-2022 WBC (Bld) [#/Vol] 6.2 10*3/uL 4.5-11.0 [facility] Creatinine and Glomerular fi ltration rate.predicted panel (S/P/Bld)Ordered By: John Mims on 03-09-2022 Creatinine [Mass/Vol] 1.10 mg/dL 0.44-1.03 [facility] Eosinophils Auto (Bld) [#/Vo l]Ordered By: John Mims on 03-09-2022 Eosinophils (Bld) [#/Vol] 0.3 10*3/uL 0.0-0.45 [facility] Eosinophils/100 WBC Auto (Bl d)Ordered By: John Mims on 03-09-2022 Eosinophils/100 WBC (Bld) 4.2 % . [facility] Erythrocyte distribution wid th Auto (RBC) [Ratio]Ordered By: John Mims on 03-09-2022 Erythrocyte distribution width (RBC) [Ratio] 13.3 % 11.9-15.3 [facility] Estimated glomerular filtrat ion rate (GFR) non- AmericanOrdered By: John Mims on 03-09-2022 GFR/1.73 sq M.predicted among non-blacks MDRD (S/P/Bld) [Vol rate/Area] 48 mL/Min [facility] Globulin Calc (S) [Mass/Vol] Ordered By: John Mims on 03-09-2022 Globulin (S) [Mass/Vol] 2.6 g/dL [facility] Hematocrit Auto (Bld) [Volum e fraction]Ordered By: John Mims on 03-09-2022 Hematocrit (Bld) [Volume fraction] 40.9 % 34.0-46.4 [facility] Laboratory - CoagulationOrde red By: John Mims on 03-09-2022 PT Coag (PPP) [Time] 17.6 s 9.0-12.9 [facility] - Hematology and Cell countsOrdered By: John Mims on 03-09-2022 Nucleated RBC/100 WBC (Bld) [Ratio] 0.0 % 0-0.5 [facility] Lymphocytes Auto (Bld) [#/Vo l]Ordered By: John Mims on 03-09-2022 Lymphocytes (Bld) [#/Vol] 1.1 10*3/uL 1.00-4.8 [facility] Lymphocytes/100 WBC Auto (Bl d)Ordered By: John Mims on 03-09-2022 Lymphocytes/100 WBC (Bld) 17.2 % . [facility] MCH Auto (RBC) [Entitic mass ]Ordered By: John Mims on 03-09-2022 MCH (RBC) [Entitic mass] 30.8 pg 24.7-34.3 [facility] MCHC Auto (RBC) [Mass/Vol]Or dered By: John Mims on 03-09-2022 MCHC (RBC) [Mass/Vol] 33.4 g/dL 32.0-35.0 [facility] MCV Auto (RBC) [Entitic vol] Ordered By: John Mims on 03-09-2022 MCV (RBC) [Entitic vol] 92.2 fL 80-100 [facility] Monocyte %Ordered By: Letty Mims on 03-09-2022 Monocyte % 24 umol/L 11-35 [facility] Monocytes Auto (Bld) [#/Vol] Ordered By: John Mims on 03-09-2022 Monocytes (Bld) [#/Vol] 0.5 10*3/uL 0.0-0.8 [facility] Monocytes/100 WBC Auto (Bld) Ordered By: John Mims on 03-09-2022 Monocytes/100 WBC (Bld) 7.4 % . [facility] Neutrophils Auto (Bld) [#/Vo l]Ordered By: John Mims on 03-09-2022 Neutrophils (Bld) [#/Vol] 4.4 10*3/uL 1.8-7.7 [facility] Neutrophils/100 WBC Auto (Bl d)Ordered By: John Mims on 03-09-2022 Neutrophils/100 WBC (Bld) 70.5 % . [facility] No Panel InformationOrdered By: John Mims on 03-09-2022 Estimated GFR () 58 mL/Min [facility] Comment on above: GFR estimated refere nce range: According to KDOQI guidelines, <60 ml/min/1.73m2 is sufficient to diagnose a patient with chronic kidney disease. Pharmacy Creatinine Clearance (Chem N/A [facility] Platelet mean volume Auto (B ld) [Entitic vol]Ordered By: John Mims on 03-09-2022 Platelet mean volume (Bld) [Entitic vol] 8.5 fL 6.3-10.7 [facility] Platelet poor plasma interna tional normalized ratio (INR) by coagulation assay (relatOrdered By: John Mims on 03-09-2022 INR Coag (PPP) [Relative time] 1.6 {INR} [facility] Comment on above: INR Therapeutic Rang [...] 03-09-2022 Platelets (Bld) [#/Vol] 213 10*3/uL 150-450 [facility] Protein [Mass/volume] in Ser um or PlasmaOrdered By: John Mims on 03-09-2022 Protein [Mass/Vol] 6.3 g/dL 6.1-7.9 [facility] RBC Auto (Bld) [#/Vol]Ordere d By: John Mims on 03-09-2022 RBC (Bld) [#/Vol] 4.44 10*6/uL 3.60-5.00 [facility] Serum or plasma alanine mahmood otransferase measurement without P-5'-P (enzymatic activiOrdered By: John Mims on 03-09-2022 ALT No additional P-5'-P [Catalytic activity/Vol] 23 U/L 10-60 [facility] Serum or plasma albumin/glob ulin mass ratioOrdered By: John Mims on 03-09-2022 Albumin/Globulin [Mass ratio] 1.4 {ratio} [facility] Serum or plasma alkaline mia sphatase measurement (enzymatic activity/volume)Ordered By: John Mims on 03-09-2022 ALP [Catalytic activity/Vol] 98 U/L 32-92 [facility] Serum or plasma aspartate am inotransferase measurement (enzymatic activity/volume)Ordered By: John Mims on 03-09-2022 AST [Catalytic activity/Vol] 27 U/L 10-42 [facility] Serum or plasma calcium mitch urement (mass/volume)Ordered By: John Mims on 03-09-2022 Calcium [Mass/Vol] 9.3 mg/dL 8.2-10.2 [facility] Serum or plasma chloride carlitos surement (moles/volume)Ordered By: John Mims on 03-09-2022 Chloride [Moles/Vol] 106 mmol/L 95-114 [facility] Serum or plasma glucose mitch urement (mass/volume)Ordered By: John Mims on 03-09-2022 Glucose [Mass/Vol] 88 mg/dL 70-100 [facility] Comment on above: ADA recommended refe rence range Random Glucose Reference Range is dependent on time and content of last meal. Glucose of more than 200 mg/dL in a nonstressed, ambulatory subject supports the diagnosis of Diabetes Mellitus. Serum or plasma potassium me asurement (moles/volume)Ordered By: John Mims on 03-09-2022 Potassium [Moles/Vol] 4.6 mmol/L 3.5-5.1 [facility] Serum or plasma sodium measu rement (moles/volume)Ordered By: John Mims on 03-09-2022 Sodium [Moles/Vol] 139 mmol/L 136-146 [facility] Serum or plasma total biliru bin measurement (mass/volume)Ordered By: John Mims on 03-09-2022 Bilirubin [Mass/Vol] 0.9 mg/dL 0.3-1.2 [facility] Serum or plasma total carbon dioxide measurement (moles/volume)Ordered By: John Mims on 03-09-2022 CO2 [Moles/Vol] 23.9 mmol/L 22.0-30.0 [facility] Serum or plasma urea nitroge n measurement (mass/volume)Ordered By: John Mims on 03-09-2022 Urea nitrogen [Mass/Vol] 30 mg/dL 05-12 [facility] TSH DL <= 0.005 mIU/L QnOrde red By: John Mims on 03-09-2022 TSH Qn 1.70 m[IU]/L 0.45-5.33 [facility] Thyroxine (T4) free [Mass/vo lume] in Serum or PlasmaOrdered By: John Mims on 03-09-2022 Free T4 [Mass/Vol] 1.37 ng/dL 0.61-1.12 [facility] US SINGLE QUAD RT UPPERon US [...] HARDY LIRA Date: 2022-01-25 16:24 Normal [facility] BNPon 01-11-2022 Natriuretic peptide B (Bld) [Mass/Vol] 520.0 pg/mL Normal <=1,800.0 [facility] Comment on above: Performed By: #### B MP, TSH, BNP #### [facility] [address] [place], [place] [address] Dr. Lori Sutton CBC AUTO DIFFon 01-11-2022 BASO # 0.0 103/ul Normal 0.0-0.1 [facility] Comment on above: Performed By: #### C BC ####[facility] [address] [place], [place] [address]YyDr. Lori Sutton Basophils/100 WBC (Bld) 0.5 % Normal 0.2-2.0 [facility] Comment on above: Performed By: #### C BC ####[facility] [address] [id number]. Lori Sutton EO # 0.3 103/ul Normal 0.0-0.7 [facility] Comment on above: Performed By: #### C BC ####[facility] [address] [id number]. Lori Sutton Eosinophils/100 WBC (Bld) 3.9 % Normal 0.9-7.0 [facility] Comment on above: Performed By: #### C BC ####[facility] [address] [place], [place] [address]Dr. Lori Sutton Erythrocyte distribution width (RBC) [Ratio] 14.4 % Normal 11.0-15.0 [facility] Comment on above: Performed By: #### C BC ####[facility] [address] [place], [place] [address]Dr. Lori Sutton Hematocrit (Bld) [Volume fraction] 42.0 % Normal 36.0-48.0 [facility] Comment on above: Performed By: #### C BC ####[facility] [address] [place], [place] [address]Dr. Lori Sutton Hemoglobin (Bld) [Mass/Vol] 13.4 g/dL Normal 12.0-16.0 [facility] Comment on above: Performed By: #### C BC ####[facility] [address] [place], [place] [address]Dr. Lori Sutton IG # 0.04 10e3/ul Critically high 0.00-0.03 [facility] Comment on above: Performed By: #### C BC ####[facility] [address] [place], [place] [address]Dr. Lori Sutton IG % 0.5 % Normal 0.0-0.5 [facility] Comment on above: Performed By: #### C BC ####[facility] [address] [place], [place] [address]Dr. Lori Sutton LYMPH # 1.7 103/ul Normal 1.2-3.8 [facility] Comment on above: Performed By: #### C BC ####[facility] [address] [id number]. Lori Sutton Lymphocytes/100 WBC (Bld) 21.3 % Normal 20.5-60.0 [facility] Comment on above: Performed By: #### C BC ####[facility] [address] [id number]. Estephaniaurbano Sutton MANUAL DIFF REQ NO Normal [facility] Comment on above: Performed By: #### C BC ####[facility] [address] [id number]. Lori Herman MCH (RBC) [Entitic mass] 30.6 pg Normal 26.7-34.0 [facility] Comment on above: Performed By: #### C BC ####[facility] [address] [place], [place] [address]Dr. Lori Herman MCHC (RBC) [Mass/Vol] 31.9 g/dL Normal 29.9-35.2 [facility] Comment on above: Performed By: #### C BC ####[facility] [address] [id number]. Lori Herman MCV (RBC) [Entitic vol] 95.9 fL Normal 81.0-99.0 [facility] Comment on above: Performed By: #### C BC ####[facility] [address] [id number]. Estephaniaurbano Herman MONO # 0.7 103/ul Normal 0.3-0.8 [facility] Comment on above: Performed By: #### C BC ####[facility] [address] [address]Dr. Estephaniaurbano Sutton Monocytes/100 WBC (Bld) 8.5 % Normal 1.7-12.0 [facility] Comment on above: Performed By: #### C BC ####[facility] [address] [place], [place] [address]Dr. Lori Sutton NEUT # 5.2 103/ul Normal 1.4-6.5 [facility] Comment on above: Performed By: #### C BC ####[facility] [address] [id number]. Lori Sutton Neutrophils/100 WBC (Bld) 65.3 % Normal 43.0-75.0 [facility] Comment on above: Performed By: #### C BC ####[facility] [address] [id number]. Lori Sutton Platelet mean volume (Bld) [Entitic vol] 10.3 fL Normal 9.5-13.5 [facility] Comment on above: Performed By: #### C BC ####[facility] [address] [address]Dr. Lori Sutton PLT 230 103/ul Normal 150-450 [facility] Comment on above: Performed By: #### C BC ####[facility] [address] [address]Dr. Lori Sutton RBC 4.38 106/ul Normal 4.20-5.40 [facility] Comment on above: Performed By: #### C BC ####[facility] [address] [id number]. Lori Sutton WBC 8.0 103/ul Normal 4.0-11.0 [facility] Comment on above: Performed By: #### C BC ####[facility] [address] [id number]. Lori Sutton PROF CHEM 8 (BAS METB)on Anion gap [Moles/Vol] 14.3 mmol/L Normal [facility] Comment on above: Performed By: #### B MP, TSH, BNP #### [facility] [address] [address] [address] Lori Sutton Calcium [Mass/Vol] 8.8 mg/dL Normal 8.5-10.1 [facility] Comment on above: Performed By: #### B MP, TSH, BNP #### [facility] [address] [address] [address] Lori Sutton Chloride [Moles/Vol] 103 mmol/L Normal 98-107 [facility] Comment on above: Performed By: #### B MP, TSH, BNP #### [facility] [address] [place] [address] Dr. Lori Sutton CO2 [Moles/Vol] 27.5 mmol/L Normal 21.0-32.0 [facility] Comment on above: Performed By: #### B MP, TSH, BNP #### [facility] [address] [place] [address] Dr. Lori Sutton Creatinine [Mass/Vol] 1.65 mg/dL Critically high 0.55-1.02 [facility] Comment on above: Performed By: #### B MP, TSH, BNP #### [facility] [address] [place] [address] Dr. Lori Sutton EGFR-AF BRAZILIAN 36 mL/min/1.73m2 Critically low >=60 [facility] Comment on above: Performed By: #### B MP, TSH, BNP #### [facility] [address] [place] [address] Dr. Lori Sutton EGFR-NON AF BRAZILIAN 30 mL/min/1.73m2 Critically low >=60 [facility] Comment on above: Performed By: #### B MP, TSH, BNP #### [facility] [address] [place] [address] Dr. Lori Sutton Glucose [Mass/Vol] 88 mg/dL Normal 74-106 [facility] Comment on above: Performed By: #### B MP, TSH, BNP #### [facility] [address] [place] [address] Dr. Lori Sutton Potassium [Moles/Vol] 4.8 mmol/L Normal 3.5-5.1 [facility] Comment on above: Performed By: #### B MP, TSH, BNP #### [facility] [address] [place] [address] Dr. Lori Sutton Sodium [Moles/Vol] 140 mmol/L Normal 136-145 [facility] Comment on above: Performed By: #### B MP, TSH, BNP #### [facility] [address] [place] [address] Dr. Lori Sutton Urea nitrogen [Mass/Vol] 46.0 mg/dL Critically high 7.0-18.0 [facility] Comment on above: Performed By: #### B MP, TSH, BNP #### [facility] [address] [address] [address] Lori Sutton Urea nitrogen/Creatinine [Mass ratio] 27.9 mg/mg Normal [facility] Comment on above: Performed By: #### B MP, TSH, BNP #### [facility] [address] [address] [address] Lori Sutton TSHon 01-11-2022 TSH 2.012 uIU/mL Normal 0.358-3.74 0 [facility] Comment on above: Performed By: #### B MP, TSH, BNP #### [facility] [address] [place] [address] Dr. Lori Sutton TSH RANGE SEE BELOW Normal [facility] Comment on above: Result Comment: <0.3 4 UIU/ml HYPERTHYROID 0.34-5.60 UIU/ml EUTHYROID >5.60 UIU/ml HYPOTHYROID Performed By: #### B MP, TSH, BNP #### [facility] [address] [place] [address] Dr. Lori Sutton XR CHEST 2 Von [...] MACARENA MEHTA Date: 2022-01-11 15:14 Normal [facility] COVID-19 Positive/NegativeOr dered By: John Mims on 12-30-2021 SARS-CoV-2 (COVID-19) N gene GUILLERMO+probe Ql (Resp) Negative Negative [facility] Comment on above: Testing for SARS-CoV -2 by RT-PCR This test was developed and its performance characteristics determined by [employer] and validated at the [facility] [facility] This test has not been FDA [...] No falls within the last year [email or web address] DO Work Phone: Tobacco use status CP b) No [facility] [employer] DO Work Phone: Tobacco Screening. Yes [facility] [employer] [employer] DO Work Phone: RAD - CT Reporton 10-10-2021 RAD - CT Report [id number]#1.00CD:127 Normal [facility] Tobacco Screening.on 021 Fall risk assessment b) One or more fall s in the last year [facility] [employer] DO Work Phone: Tobacco use status CP b) No [facility] DO Work Phone: RAD - CT Reporton 07-24-2021 RAD - CT Report [id number]#1.00CD:127 Normal [facility] Consent for Procedure/Surger yon 07-22-2021 Consent for Procedure/Surgery [id number]#1.00CD:127 Normal [facility] Ambulatory Clinical Summaryo n 07-21-2021 Ambulatory Clinical Summary {[id number]}CD: [id number] Normal [facility] Patient Educationon 07-21-20 21 Patient Education Urology [...] these instructions at home: Medicines ? Take vcoh-tnt-fljfdbd and prescription medicines only as told by [...] 01/22/2009 Document Revised: 12/23/2019 Document Reviewed: 12/23/2019 [employer] Patient Education ? 2019 [employer]. [facility] Urology Office/Clinic Noteon 07-21-2021 Urology [...] 07/01/2021. Pt. was seen in consult at [facility]. CT done 06/27/2021 shows left [...] some point. Follow-up With When Contact Information KARUNA MUIR, JOAO Teran In 6 months 01/19/2022 EDT [address] [facility] [address] [place] [phone]- Additional Instructions: KUB Patient Education Kidney Stones, Dcrq-gv-Apcf I, Leonor Rucker, personally scribed for Dr. Alfonso on 07/21/2021 15:11:38. . Documentation recorded by the scribe, Leonor Rucker, accurately reflects the services(s) I performed and [...] Never Smokeless Tobacco Use:., 07/21/2021 [facility] Comment on above: Result Comment: Elec tronically Signed By: Byron ALFONSO MD\.br\Date and Time Signed: 07/21/21 15:17 EST\.br\Electronically Co-Signed By: Leonor Rucker.br\Date and Time Co-Signed: 07/21/21 15:12 EST Falls Risk Screeningon 07-06 Fall risk assessment a) No falls within the last year [facility] 250 DO Work Phone: Pathology Noteon 07-06-2021 Pathology Note [id number]#1.00CD:127 Normal [facility] Operative Reporton Operative Report [id number]#1.00CD:127 Normal [facility] RAD - MISCon 07-04-2021 RAD - MISC [id number]#1.00CD:127 Normal [facility] Insurance Correspondence Off iceon 07-01-2021 Insurance Correspondence Office [id number]#1.00CD:127 Normal [facility] Consultation Noteon 06-29-20 Consultation Note [id number]#1.00CD:127 Normal [facility] No Panel Informationon 06-24 [facility] [address] [place] Work Phone: 20.44\S\20.44 Normal [facility] [place] Work Phone: Comment on above: PERFORMED BY:[place] [address] [place] [place], [place] [phone] MEDICAL DIRECTORVITOR ZARATE M.D. 9.0\S\9.0 Normal 8.2-10.2 [facility] [address] [place] Work Phone: 24.1\S\24.1 Normal 22.0-30.0 [facility] [address] [place] Work Phone: 103\S\103 Normal 95-114 [facility] [address] [place] Work Phone: 4.4\S\4.4 Normal 3.5-5.1 [facility] [address] [place] Work Phone: 138\S\138 Normal 136-146 [facility] [address] [place] Work Phone: 31\S\31 Normal [facility] [place] Work Phone: Comment on above: GFR estimated refere nce range: According to KDOQI guidelines, <60 ml/min/1.73m2 is sufficient to diagnose a patient with chronic kidney disease. 26\S\26 Normal [facility] [place] Work Phone: 1.88\S\1.88 above high threshold 0.44-1.03 [facility] [place] Work Phone: 34\S\34 above high threshold 9-23 [facility] [place] Work Phone: 130\S\130 above high threshold 70-100 [facility] [place] Work Phone: Comment on above: Random Glucose Refer ence Range is dependent on time and content of last meal. Glucose of more than 200 mg/dL in a nonstressed, ambulatory subject supports the diagnosis of Diabetes Mellitus. ADA recommended reference range No Panel Informationon 06-23 3+ above high threshold Negative [facility] [place] Work Phone: Negative Normal Negative [facility] [place] Work Phone: Normal Normal Normal [facility] [place] Work Phone: 30\S\30 above high threshold Negative [facility] [place] Work Phone: None Seen Normal 0-8 [facility] [address] [place] Work Phone: Comment on above: PERFORMED BY:[facility] [place], [place] [phone] MEDICAL DIRECTORVITOR ZARATE M.D. 4+ above high threshold Negative -[facility] [place] [address] [place] Work Phone: 0-1 Normal 0-2 [facility] [place] [address] [place] Work Phone: Innumerable above high threshold 0-4 [facility] [place] [address] [place] Work Phone: Positive above high threshold Negative [facility] [place] [address] [place] Work Phone: 5.5\S\5.5 Normal 5.0-9.0 [facility] [place] [address] [place] Work Phone: 1.015\S\1.015 Normal 1.001-1.03 0 [facility] [place] [address] [place] Work Phone: Turbid Critically abnormal Clear [facility] [place] [address] [place] Work Phone: Yellow Normal Yellow -[facility] [address] [place] Work Phone: [facility] [place] [address] [place] Work Phone: 21\S\21 Normal [facility] [place] [address] [place] Work Phone: 21.8\S\21.8 below low threshold 23.0-27.0 [facility] [place] [address] [place] Work Phone: 7.2\S\7.2 Normal 6.6-9.7 [facility] [place] [address] [place] Work Phone: 95.4\S\95.4 Normal 95.0-100.0 [facility] [place] [address] [place] Work Phone: -2.7\S\-2.7 Normal -3.0-3.0 -[facility] [place] [address] [place] Work Phone: 20.8\S\20.8 below low threshold 23.0-29.0 -[facility] [place] [address] [place] Work Phone: 76.9\S\76.9 below low threshold 80.0-100.0 [facility] [place] [address] [place] Work Phone: 32.1\S\32.1 below low threshold 35.0-45.0 -[facility] [address] [place] Work Phone: 7.43\S\7.43 Normal 7.35-7.45 -[facility] [address] [place] Work Phone: Normal [facility] [address] [place] Work Phone: Comment on above: Critical Value gustafson d on: 06/23/2021 at 13:35PERFORMED BY:[place] [address] [address] [place] [id number] MEDICAL DIRECTORVITOR ZARATE M.D. Right Radial Normal [facility] [address] [place] Work Phone: 24.4\S\24.4 Normal 22.0-30.0 [facility] [address] [place] Work Phone: Comment on above: PERFORMED BY:[facility] [place] [place], [place] [phone] MEDICAL DIRECTORVITOR ZARATE M.D. 104\S\104 Normal 95-114 -[facility] [address] [place] Work Phone: 4.4\S\4.4 Normal 3.5-5.1 [facility] [address] [place] Work Phone: 141\S\141 Normal 136-146 [facility] [address] [place] Work Phone: -[facility] [address] [place] Work Phone: Radiologyon 06-23-2021 Portable XR Chest Views Normal [facility] [address] [place] Work Phone: BASIC METABOLIC PANELon 07-20 Calcium [Mass/Vol] 8.4 mg/dL Low 8.6-10.3 [facility] Comment on above: Order Comment: No: D o not add to previous draw Pt care Performed By: #### 0 0071 #### [facility] [address] [place] [address], [place] Chloride [Moles/Vol] 105 mmol/L Normal 98-107 [facility] Comment on above: Order Comment: No: D o not add to previous draw Pt care Performed By: #### 0 0071 #### [facility] [address] [place] [address], [place] CO2 [Moles/Vol] 23 mmol/L Normal 21-31 [facility] Comment on above: Order Comment: No: D o not add to previous draw Pt care Performed By: #### 0 0071 #### [facility] [address] [place] [address], [place] Creatinine [Mass/Vol] 1.14 mg/dL Normal 0.60-1.20 [facility] Comment on above: Order Comment: No: D o not add to previous draw Pt care Performed By: #### 0 0071 #### [facility] [address] [place] [address], [place] GFR/1.73 sq M predicted among blacks MDRD (S/P/Bld) [Vol rate/Area] 56 ml/min/1.73sq m Abnormal >60 [facility] Comment on above: Order Comment: No: D o not add to previous draw Pt care Result Comment: Calc ulation may not be valid for patients over 70 years Performed By: #### 0 0071 #### [facility] [address] [place] [address], [facility] GFR/1.73 sq M predicted among non-blacks MDRD (S/P/Bld) [Vol rate/Area] 46 ml/min/1.73sq m Abnormal >60 [facility] Comment on above: Order Comment: No: D o not add to previous draw Pt care Result Comment: Calc ulation may not be valid for patients over 70 years Performed By: #### 0 0071 #### [facility] [address] [facility] [address], [facility] Glucose [Mass/Vol] 151 mg/dL High 70-100 [facility] Comment on above: Order Comment: No: D o not add to previous draw Pt care Performed By: #### 0 0071 #### [facility] [address] [place] [address], [facility] Potassium [Moles/Vol] 3.9 mmol/L Normal 3.5-5.1 [facility] Comment on above: Order Comment: No: D o not add to previous draw Pt care Performed By: #### 0 0071 #### [facility] [address] [address], [facility] Sodium [Moles/Vol] 139 mmol/L Normal 136-145 [facility] Comment on above: Order Comment: No: D o not add to previous draw Pt care Performed By: #### 0 0071 #### [facility] [address] [address], [place] Urea nitrogen [Mass/Vol] 14 mg/dL Normal 7-25 [facility] Comment on above: Order Comment: No: D o not add to previous draw Pt care Performed By: #### 0 0071 #### [facility] [address] [facility] [address], [facility] CTA CHESTon 07-31-2020 CTA CHEST [facility] Department of Radiology [address] [place] [address] [phone] Patient Name: LESA GOLDEN : 1940 Sex: F Age: Race: White Pt. Location: [id number] Patient Status: D Ordered Date: 07/31/2020 10:25:00 [...] reports Electronically signed: Drew Rios. Transcribed by: [email or web address], User Resident: SANTO LAZO Electronically Signed by: DREW RIOS @ 08/02/2020 09:34 AM I personally read this/these film(s) with this resident Normal [facility] Comment on above: Order Comment: 12 ho urs post vitamin K administration/pre-procedure warfarin reversal No: Do not add to previous draw PROTHROMBIN TIMEon 0 INR Coag (PPP) [Relative time] 1.10 {INR} Normal 0.91-1.16 [facility] Comment on above: Order Comment: No: [...] CHEST 1995;108:231S-246S. Performed By: #### 0 0071, [id number] #### [facility] [address] [facility]. [address] PT Coag (PPP) [Time] 14.2 s Normal 12.3-14.8 [facility] Comment on above: Order Comment: No: D o not add to previous draw Result Comment: ALL RESULTS MUST BE INTERPRETED WITH RESPECT TO BLOOD DRAWING ARTIFACT OR DILUTION ERROR OF ANTICOAGULANT AT THE TIME OF SAMPLING. Performed By: #### 0 0071, [id number] #### [facility] [address] [facility] UFH HEPARIN ASSAYon 07-31-20 20 UNFRACTIONATED HEPARIN 0.32 IU/mL Normal 0.30-0.70 Th e [facility] Comment on above: Result Comment: Aracelis roxaban and Apixaban will interfere with the anti Xa assay used to monitor UFH and LMWH. Performed By: #### 0 0071, 79217 #### [facility] [address] URINALYSIS REFLEXon 07-31-20 20 Appearance (U) CLOUDY Abnormal CLEAR [facility] Comment on above: Order Comment: No: D o not add to previous draw Performed By: #### 5 3629, 88088, 05856 #### [facility] [address] Bilirubin [Mass/Vol] Negative Normal NEGATIVE [facility] Comment on above: Order Comment: No: D o not add to previous draw Performed By: #### 5 3629, 98353, 15557 #### [facility] [address] [place] [address], [place] BLOOD LARGE Abnormal NEGATIVE [facility] Comment on above: Order Comment: No: D o not add to previous draw Performed By: #### 5 3629, 21698, 83297 #### [facility] [address] [place] [address], [place] Color (U) SABINA Abnormal YELLOW [facility] Comment on above: Order Comment: No: D o not add to previous draw Performed By: #### 5 9, 01844, 88646 #### [facility] [address] [place] [address], [place] EPIS MANY Abnormal FEW,OCC,NO NE SEEN [facility] Comment on above: Order Comment: No: D o not add to previous draw Performed By: #### 5 3628, 72221, 84295 #### [facility] [address] [place] [address], [place] Glucose [Mass/Vol] Negative Normal NEGATIVE [facility] Comment on above: Order Comment: No: D o not add to previous draw Performed By: #### 5 3628, 38308, 50913 #### [facility] [address] [place] [address], [place] KETONE Negative Normal NEGATIVE [facility] Comment on above: Order Comment: No: D o not add to previous draw Performed By: #### 5 3628, 09684, 50474 #### [facility] [address] [place] [address], [place] LEUK GEOFFREY MODERATE Abnormal NEGATIVE [facility] Comment on above: Order Comment: No: D o not add to previous draw Performed By: #### 5 362, 57427, 62204 #### [facility] [address] [place] [address], [place] MUCUS THREADS FEW Abnormal NONE SEEN [facility] Comment on above: Order Comment: No: D o not add to previous draw Performed By: #### 5 3629, 40334, 56532 #### [facility] [address] [place] [address], [facility] Nitrite Ql (U) Positive Abnormal NEGATIVE [facility] Comment on above: Order Comment: No: D o not add to previous draw Performed By: #### 5 3629, 08138, 99598 #### [facility] [address] [place] [address], [facility] pH (Bld) 5.0 Normal 5.0-8.0 [facility] Comment on above: Order Comment: No: D o not add to previous draw Performed By: #### 5 362, 18314, 08405 #### [facility] [address] [facility] [address], [facility] Protein (U) [Mass/Vol] 100 mg/dL Abnormal NEGATIVE Th e [facility] Comment on above: Order Comment: No: D o not add to previous draw Performed By: #### 5 362, 85019, 57967 #### [facility] [address] [facility] [place] [address], [facility] RBC (U) [#/Vol] /uL Abnormal NONE SEEN [facility] Comment on above: Order Comment: No: D o not add to previous draw Performed By: #### 5 362, 49198, 52117 #### [facility] [address] [facility] [place] [address], [facility] SPEC GRAV 1.025 High 1.015-1.02 0 [facility] Comment on above: Order Comment: No: D o not add to previous draw Performed By: #### 5 362, 36968, 06775 #### [facility] [address] [facility] [place] [address], [facility] WBC UA >100 Abnormal NONE SEEN [facility] Comment on above: Order Comment: No: D o not add to previous draw Performed By: #### 5 362, 15115, 60219 #### [facility] [address] [place] [address], [place] BASIC METABOLIC PANELon 12 Calcium [Mass/Vol] 8.1 mg/dL Low 8.6-10.3 [facility] Comment on above: Order Comment: No: D o not add to previous draw Performed By: #### 0 0071 #### [facility] [address] [place] [address], [place] Chloride [Moles/Vol] 108 mmol/L High 98-107 [facility] Comment on above: Order Comment: No: D o not add to previous draw Performed By: #### 0 0071 #### [facility] [address] [place] [address], [place] CO2 [Moles/Vol] 24 mmol/L Normal 21-31 [facility] Comment on above: Order Comment: No: D o not add to previous draw Performed By: #### 0 0071 #### [facility] [address] [place] [address], [place] Creatinine [Mass/Vol] 0.99 mg/dL Normal 0.60-1.20 [facility] Comment on above: Order Comment: No: D o not add to previous draw Performed By: #### 0 0071 #### [facility] [address] [place] [address], [place] GFR/1.73 sq M predicted among blacks MDRD (S/P/Bld) [Vol rate/Area] mL/min/{1.73_m2} Normal >60 [facility] Comment on above: Order Comment: No: D o not add to previous draw Result Comment: Calc ulation may not be valid for patients over 70 years Performed By: #### 0 0071 #### [facility] [address] [place] [address], [place] GFR/1.73 sq M predicted among non-blacks MDRD (S/P/Bld) [Vol rate/Area] 54 ml/min/1.73sq m Abnormal >60 [facility] Comment on above: Order Comment: No: D o not add to previous draw Result Comment: Calc ulation may not be valid for patients over 70 years Performed By: #### 0 0071 #### [facility] [address] [place] [address], [place] Glucose [Mass/Vol] 104 mg/dL High 70-100 [facility] Comment on above: Order Comment: No: D o not add to previous draw Performed By: #### 0 0071 #### [facility] [address] [place] [address], [place] Potassium [Moles/Vol] 3.5 mmol/L Normal 3.5-5.1 [facility] Comment on above: Order Comment: No: D o not add to previous draw Performed By: #### 0 0071 #### [facility] [address] [place] [address], [place] Sodium [Moles/Vol] 141 mmol/L Normal 136-145 [facility] Comment on above: Order Comment: No: D o not add to previous draw Performed By: #### 0 0071 #### [facility] [address] [place] [address], [place] Urea nitrogen [Mass/Vol] 17 mg/dL Normal 7-25 [facility] Comment on above: Order Comment: No: D o not add to previous draw Performed By: #### 0 0071 #### [facility] [address] [place] [address], [place] CBC COMPLETE BLOOD COUNTon 09-30-2019 Erythrocyte distribution width (RBC) [Ratio] 17.3 % High 11.5-15.0 [facility] Comment on above: Order Comment: 12 ho urs post vitamin K administration/pre-procedure warfarin reversal No: Do not add to previous draw Performed By: #### 5 6101 #### [facility] [address] [place] [address], [facility] Hematocrit (Bld) [Volume fraction] 37.7 % Normal 36.0-45.0 [facility] Comment on above: Order Comment: 12 ho urs post vitamin K administration/pre-procedure warfarin reversal No: Do not add to previous draw Performed By: #### 5 6101 #### [facility] [address] [place] [address], [facility] Hemoglobin (Bld) [Mass/Vol] 12.0 g/dL Normal 12.0-15.0 [facility] Comment on above: Order Comment: 12 ho urs post vitamin K administration/pre-procedure warfarin reversal No: Do not add to previous draw Performed By: #### 5 6101 #### [facility] [address] [place] [address], [facility] MCH (RBC) [Entitic mass] 29.0 pg Normal 27.0-33.0 [facility] Comment on above: Order Comment: 12 ho urs post vitamin K administration/pre-procedure warfarin reversal No: Do not add to previous draw Performed By: #### 5 6101 #### [facility] [address] [place] [address], [facility] MCHC (RBC) [Mass/Vol] 31.8 g/dL Low 32.0-35.0 [facility] Comment on above: Order Comment: 12 ho urs post vitamin K administration/pre-procedure warfarin reversal No: Do not add to previous draw Performed By: #### 5 6101 #### [facility] [address] [place] [address], [facility] MCV (RBC) [Entitic vol] 91.1 fL Normal 82.0-98.0 [facility] Comment on above: Order Comment: 12 ho urs post vitamin K administration/pre-procedure warfarin reversal No: Do not add to previous draw Performed By: #### 5 6101 #### [facility] [address] [place] [address], [facility] Nucleated RBC/100 WBC (Bld) [Ratio] 0 % Normal 0-0 [facility] Comment on above: Order Comment: 12 ho urs post vitamin K administration/pre-procedure warfarin reversal No: Do not add to previous draw Performed By: #### 5 6101 #### [facility] [address] [place] [id number], [facility] PLAT CNT 233 10*3/uL Normal 150-400 [facility] Comment on above: Order Comment: 12 ho urs post vitamin K administration/pre-procedure warfarin reversal No: Do not add to previous draw Performed By: #### 5 6101 #### [facility] [address] [facility] [address], [facility] RBC (Bld) [#/Vol] 4.14 10*6/uL Normal 3.80-5.00 [facility] Comment on above: Order Comment: 12 ho urs post vitamin K administration/pre-procedure warfarin reversal No: Do not add to previous draw Performed By: #### 5 6101 #### [facility] [address] [facility] [address], [facility] WBC (Bld) [#/Vol] 9.44 10*3/uL Normal 4.00-10.60 [facility] Comment on above: Order Comment: 12 ho urs post vitamin K administration/pre-procedure warfarin reversal No: Do not add to previous draw Performed By: #### 5 6101 #### [facility] [address] [facility] [place] [address], [facility] HEMATOCRITon 07-30-2020 Hematocrit (Bld) [Volume fraction] 43.9 % Normal 36.0-45.0 [facility] Comment on above: Order Comment: No: D o not add to previous draw Performed By: #### 5 3629, 47106, 01712 #### [facility] [address] [facility] [place] [address], [facility] HEMOGLOBINon 07-30-2020 Hemoglobin (Bld) [Mass/Vol] 13.5 g/dL Normal 12.0-15.0 [facility] Comment on above: Order Comment: No: D o not add to previous draw Performed By: #### 5 3629, 54471, 42118 #### [facility] [address] [facility]. [address] PROTHROMBIN TIMEon 0 INR Coag (PPP) [Relative time] 1.22 {INR} High 0.91-1.16 [facility] Comment on above: Order Comment: No: [...] CHEST 1995;108:231S-246S. Performed By: #### 0 0071, 32646 #### [facility] [address] [facility] [facility] [facility]. [address] PT Coag (PPP) [Time] 15.4 s High 12.3-14.8 [facility] Comment on above: Order Comment: No: D o not add to previous draw Result Comment: ALL RESULTS MUST BE INTERPRETED WITH RESPECT TO BLOOD DRAWING ARTIFACT OR DILUTION ERROR OF ANTICOAGULANT AT THE TIME OF SAMPLING. Performed By: #### 0 0071, [id number] #### [facility] [address] UFH HEPARIN ASSAYon 07-30-20 20 UNFRACTIONATED HEPARIN 0.45 IU/mL Normal 0.30-0.70 Th e [facility] Comment on above: Result Comment: Aracelis roxaban and Apixaban will interfere with the anti Xa assay used to monitor UFH and LMWH. Performed By: #### 0 70, 46115 #### [facility] [address] [place] [address], [facility] UNFRACTIONATED HEPARIN 0.52 IU/mL Normal 0.30-0.70 Th e [facility] Comment on above: Result Comment: [place] roxaban and Apixaban will interfere with the anti Xa assay used to monitor UFH and LMWH. Performed By: #### 0 0071, 67533 #### [facility] [address] APTTon 07-29-2020 aPTT Coag (Bld) [Time] s Critically high 25.0-35. 0 [facility] Comment on above: Result Comment: ALL [...] RING RN @0210 Performed By: #### 0 70, 64028 #### [facility] [address] [facility] [place] [address], [facility] BASIC METABOLIC PANELon 12- Calcium [Mass/Vol] 7.4 mg/dL Low 8.6-10.3 [facility] Comment on above: Order Comment: No: D o not add to previous draw Performed By: #### 0 007, 89117 #### [facility] [address] [facility] [address], [facility] Chloride [Moles/Vol] 101 mmol/L Normal 98-107 [facility] Comment on above: Order Comment: No: D o not add to previous draw Performed By: #### 0 0071, 37259 #### [facility] [address] [place] [address], [place] CO2 [Moles/Vol] 24 mmol/L Normal 21-31 [facility] Comment on above: Order Comment: No: D o not add to previous draw Performed By: #### 0 0071, 22169 #### [facility] [address] [place] [address], [place] Creatinine [Mass/Vol] 1.02 mg/dL Normal 0.60-1.20 [facility] Comment on above: Order Comment: No: D o not add to previous draw Performed By: #### 0 0071, 23402 #### [facility] [address] [place] [address], [place] GFR/1.73 sq M predicted among blacks MDRD (S/P/Bld) [Vol rate/Area] mL/min/{1.73_m2} Normal >60 [facility] Comment on above: Order Comment: No: D o not add to previous draw Result Comment: Calc ulation may not be valid for patients over 70 years Performed By: #### 0 0071, 53335 #### [facility] [address] [place] [address], [place] GFR/1.73 sq M predicted among non-blacks MDRD (S/P/Bld) [Vol rate/Area] 53 ml/min/1.73sq m Abnormal >60 [facility] Comment on above: Order Comment: No: D o not add to previous draw Result Comment: Calc ulation may not be valid for patients over 70 years Performed By: #### 0 0071, 34253 #### [facility] [address] [place] [address], [place] Glucose [Mass/Vol] 314 mg/dL High 70-100 [facility] Comment on above: Order Comment: No: D o not add to previous draw Performed By: #### 0 0071, 69250 #### [facility] [address] [place] [address], [facility] Potassium [Moles/Vol] 3.1 mmol/L Low 3.5-5.1 [facility] Comment on above: Order Comment: No: D o not add to previous draw Performed By: #### 0 0071, 92985 #### [facility] [address] [place] [address], [facility] Sodium [Moles/Vol] 139 mmol/L Normal 136-145 [facility] Comment on above: Order Comment: No: D o not add to previous draw Performed By: #### 0 0071, 78293 #### [facility] [address] [facility] [place] [address], [facility] Urea nitrogen [Mass/Vol] 15 mg/dL Normal 7-25 [facility] Comment on above: Order Comment: No: D o not add to previous draw Performed By: #### 0 0071, 07915 #### [facility] [address] [facility] [address], [facility] MAGNESIUM BLOODon 07-29-2020 Magnesium [Mass/Vol] 1.5 mg/dL Low 1.9-2.7 [facility] Comment on above: Order Comment: No: D o not add to previous draw Performed By: #### 0 0071, 71339 #### [facility] [address] [facility] [place] [address], [facility] PORTABLE CHEST 1 VIEWon 07-20 PORTABLE CHEST 1 VIEW [facility] Department of Radiology [address] [place] [id number] Patient Name: LESA GOLDEN : 1940 Sex: F Age: Race: White Pt. Location: [address] [place] [address] Patient Status: I Ordered Date: 07/29/2020 8:25:00 [...] atelectasis. Electronically signed: Emmanuel Armas. Transcribed by: [email or web address], User Resident: Electronically Signed by: EMMANUEL ARMAS @ 07/29/2020 09:41 AM Normal [facility] Comment on above: Order Comment: 12 ho urs post vitamin K administration/pre-procedure warfarin reversal No: Do not add to previous draw PROTHROMBIN TIMEon 0 INR Coag (PPP) [Relative time] 1.45 {INR} High 0.91-1.16 [facility] Comment on above: Order Comment: No: D o not add to previous draw Result Comment: [facility] P RECOMMENDED INR FOR WARFARIN THERAPY --------- [...] CHEST 1995;108:231S-246S. Performed By: #### 0 0071, 89927 #### [facility] [address] PT Coag (PPP) [Time] 17.7 s High 12.3-14.8 [facility] Comment on above: Order Comment: No: D o not add to previous draw Result Comment: ALL RESULTS MUST BE INTERPRETED WITH RESPECT TO BLOOD DRAWING ARTIFACT OR DILUTION ERROR OF ANTICOAGULANT AT THE TIME OF SAMPLING. Performed By: #### 0 0071, 25354 #### [facility] [address] [facility]. [address] UFH HEPARIN ASSAYon 1210-20 20 UNFRACTIONATED HEPARIN 0.89 IU/mL High 0.30-0.70 Th e [facility] Comment on above: Result Comment: Aracelis roxaban and Apixaban will interfere with the anti Xa assay used to monitor UFH and LMWH. Performed By: #### 0 0071, 17449 #### [facility] [address] [facility] UNFRACTIONATED HEPARIN 0.78 IU/mL High 0.30-0.70 Th e [facility] Comment on above: Result Comment: [place] roxaban and Apixaban will interfere with the anti Xa assay used to monitor UFH and LMWH. Performed By: #### 0 0071, 13576 #### [facility] [address] [place] [address], [facility] UNFRACTIONATED HEPARIN >1.00 Critically high 0.30-0.7 0 [facility] Comment on above: Order Comment: 12 ho urs post vitamin K administration/pre-procedure warfarin reversal No: Do not add to previous draw Result Comment: Aracelis roxaban and Apixaban will interfere with the anti Xa assay used to monitor UFH and LMWH. UFH=1.22 RESULTS CHECKED AND CALLED. ACCURATELY READ BACK BY SAEID RING RN @0210 Performed By: #### 5 6101 #### [facility] [address] [place] [address], [facility] BASIC METABOLIC PANELon 12-0 Calcium [Mass/Vol] 8.5 mg/dL Low 8.6-10.3 [facility] Comment on above: Order Comment: No: D o not add to previous draw Performed By: #### 0 0071 #### [facility] [address] [facility] [address], [facility] Chloride [Moles/Vol] 108 mmol/L High 98-107 [facility] Comment on above: Order Comment: No: D o not add to previous draw Performed By: #### 0 0071 #### [facility] [address] [place] [address], [facility] CO2 [Moles/Vol] 24 mmol/L Normal 21-31 [facility] Comment on above: Order Comment: No: D o not add to previous draw Performed By: #### 0 0071 #### [facility] [address] [place] [address], [facility] Creatinine [Mass/Vol] 1.03 mg/dL Normal 0.60-1.20 [facility] Comment on above: Order Comment: No: D o not add to previous draw Performed By: #### 0 0071 #### [facility] [address] [place] [address], [facility] GFR/1.73 sq M predicted among blacks MDRD (S/P/Bld) [Vol rate/Area] mL/min/{1.73_m2} Normal >60 [facility] Comment on above: Order Comment: No: D o not add to previous draw Result Comment: Calc ulation may not be valid for patients over 70 years Performed By: #### 0 0071 #### [facility] [address] [place] [address], [facility] GFR/1.73 sq M predicted among non-blacks MDRD (S/P/Bld) [Vol rate/Area] 52 ml/min/1.73sq m Abnormal >60 [facility] Comment on above: Order Comment: No: D o not add to previous draw Result Comment: Calc ulation may not be valid for patients over 70 years Performed By: #### 0 0071 #### [facility] [address] [place] [address], [place] Glucose [Mass/Vol] 120 mg/dL High 70-100 [facility] Comment on above: Order Comment: No: D o not add to previous draw Performed By: #### 0 0071 #### [facility] [address] [place] [address], [place] Potassium [Moles/Vol] 3.7 mmol/L Normal 3.5-5.1 [facility] Comment on above: Order Comment: No: D o not add to previous draw Performed By: #### 0 0071 #### [facility] [address] [place] [address], [place] Sodium [Moles/Vol] 141 mmol/L Normal 136-145 [facility] Comment on above: Order Comment: No: D o not add to previous draw Performed By: #### 0 0071 #### [facility] [address] [place] [address], [place] Urea nitrogen [Mass/Vol] 24 mg/dL Normal 7-25 [facility] Comment on above: Order Comment: No: D o not add to previous draw Performed By: #### 0 0071 #### [facility] [address] [place] [address], [facility] CBC COMPLETE BLOOD COUNTon 09-28-2019 Erythrocyte distribution width (RBC) [Ratio] 16.9 % High 11.5-15.0 [facility] Comment on above: Order Comment: 12 ho urs post vitamin K administration/pre-procedure warfarin reversal No: Do not add to previous draw Performed By: #### 5 [id number] #### [facility] [address] [place] [address], [facility] Hematocrit (Bld) [Volume fraction] 40.8 % Normal 36.0-45.0 [facility] Comment on above: Order Comment: 12 ho urs post vitamin K administration/pre-procedure warfarin reversal No: Do not add to previous draw Performed By: #### 5 [id number] #### [facility] [address] [place] [address], [facility] Hemoglobin (Bld) [Mass/Vol] 12.6 g/dL Normal 12.0-15.0 [facility] Comment on above: Order Comment: 12 ho urs post vitamin K administration/pre-procedure warfarin reversal No: Do not add to previous draw Performed By: #### 5 6101 #### [facility] [address] [place] [address], [facility] MCH (RBC) [Entitic mass] 28.5 pg Normal 27.0-33.0 [facility] Comment on above: Order Comment: 12 ho urs post vitamin K administration/pre-procedure warfarin reversal No: Do not add to previous draw Performed By: #### 5 [id number] #### [facility] [address] [place] [address], [facility] MCHC (RBC) [Mass/Vol] 30.9 g/dL Low 32.0-35.0 [facility] Comment on above: Order Comment: 12 ho urs post vitamin K administration/pre-procedure warfarin reversal No: Do not add to previous draw Performed By: #### 5 6101 #### [facility] [address] [place] [address], [facility] MCV (RBC) [Entitic vol] 92.3 fL Normal 82.0-98.0 [facility] Comment on above: Order Comment: 12 ho urs post vitamin K administration/pre-procedure warfarin reversal No: Do not add to previous draw Performed By: #### 5 [id number] #### [facility] [address] [place] [address], [facility] Nucleated RBC/100 WBC (Bld) [Ratio] 1 % High 0-0 [facility] Comment on above: Order Comment: 12 ho urs post vitamin K administration/pre-procedure warfarin reversal No: Do not add to previous draw Performed By: #### 5 6101 #### [facility] [address] [place] [address], [facility] PLAT CNT 245 10*3/uL Normal 150-400 [facility] Comment on above: Order Comment: 12 ho urs post vitamin K administration/pre-procedure warfarin reversal No: Do not add to previous draw Performed By: #### 5 6101 #### [facility] [address] [place] [address], [facility] RBC (Bld) [#/Vol] 4.42 10*6/uL Normal 3.80-5.00 [facility] Comment on above: Order Comment: 12 ho urs post vitamin K administration/pre-procedure warfarin reversal No: Do not add to previous draw Performed By: #### 5 6101 #### [facility] [address] [place] [address], [place] WBC (Bld) [#/Vol] 9.82 10*3/uL Normal 4.00-10.60 [facility] Comment on above: Order Comment: 12 ho urs post vitamin K administration/pre-procedure warfarin reversal No: Do not add to previous draw Performed By: #### 5 6101 #### [facility] [address] [place] [address], [facility] CT BRAIN WO CONTRASTon 07-28 CT BRAIN WO CONTRAST [facility] Department of Radiology [address] [place] [address] Patient Name: LESA GOLDEN : 1940 Sex: F Age: Race: White Pt. 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 Electronically signed: Asia Javier. Transcribed by: [email or web address], User Resident: Electronically Signed by: ASIA JAVIER @ 07/28/2020 04:48 PM Normal [facility] Comment on above: Order Comment: 12 ho urs post vitamin K administration/pre-procedure warfarin reversal No: Do not add to previous draw CTA HEADon 07-28-2020 CTA HEAD [facility] Department of Radiology [address] [place] [id number] Patient Name: LESA GOLDEN : 1940 Sex: F Age: Race: White Pt. 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 Electronically signed: Asia Javier. Transcribed by: [email or web address], User Resident: Electronically Signed by: ASIA JAVIER @ 07/28/2020 05:16 PM Normal [facility] Comment on above: Order Comment: No: D o not add to previous draw CTA NECKon 07-28-2020 CTA NECK [facility] Department of Radiology [address] [place] [id number] Patient Name: LESA GOLDEN : 1940 Sex: F Age: Race: White Pt. 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 CONTRAST: TECHNIQUE: Multi-detector CT angiography axial slices of the neck were obtained during intravenous administration of IV contrast material. Sagittal, coronal, and 3-D reconstructions were performed and viewed on a separate workstation. The [place] Symptomatic Carotid Endarterectomy Trial (NASCET) method for [...] achievable Electronically signed: Asia Javier. Transcribed by: [email or web address], User Resident: Electronically Signed by: ASIA JAVIER @ 07/28/2020 05:19 PM Normal [facility] Comment on above: Order Comment: No: D o not add to previous draw Cardiovascular Lab Reporton 07-28-2020 Cardiovascular Lab Report [facility] Patient Name: [facility] Maggy MR #: [id number] Department of Physician: [facility]re[facility] M.Vannesa Division of Service Date: 07/28/2020 Cardiology Birthdate: 1940 Adult Cardiovascular Room #: 3AB [id number] [place] [address] Cardiovascular Laboratory Report PROCEDURE PERFORMED: Transesophageal echocardiogram and cardioversion. INDICATION: Atrial fibrillation. FELLOW: Hiwot Owens M.D. PROCEDURE IN DETAIL: An informed consent was obtained from the patient after explaining indications, risks and benefits, and alternatives. The patient understood and agreed and signed the consent form. The patient was brought to the clinical laboratory aides teacher and transesophageal echocardiogram was performed under conscious [...] Owens MD Date Trans: 07/28/2020 04:12 P/boaz [id number] cc: Chester العلي D.O. [address] [facility] [place] [id number] Normal [facility] PROTHROMBIN TIMEon 0 INR Coag (PPP) [Relative time] 1.67 {INR} High 0.91-1.16 [facility] Comment on above: Order Comment: No: [...] CHEST 1995;108:231S-246S. Performed By: #### 0 0071, 31563 #### [facility] [address] [place] [address], [facility] PT Coag (PPP) [Time] 19.7 s High 12.3-14.8 [facility] Comment on above: Order Comment: No: D o not add to previous draw Result Comment: ALL RESULTS MUST BE INTERPRETED WITH RESPECT TO BLOOD DRAWING ARTIFACT OR DILUTION ERROR OF ANTICOAGULANT AT THE TIME OF SAMPLING. Performed By: #### 0 0071, 30304 #### [facility] [address] [place] [address], [place] INR Coag (PPP) [Relative time] 1.85 {INR} High 0.91-1.16 [facility] Comment on above: Order Comment: 12 [...] 1995;108:231S-246S. Performed By: #### 5 6101 #### [facility] [address] [place] [address], [facility] PT Coag (PPP) [Time] 21.4 s High 12.3-14.8 [facility] Comment on above: Order Comment: 12 ho urs post vitamin K administration/pre-procedure warfarin reversal No: Do not add to previous draw Result Comment: ALL RESULTS MUST BE INTERPRETED WITH RESPECT TO BLOOD DRAWING ARTIFACT OR DILUTION ERROR OF ANTICOAGULANT AT THE TIME OF SAMPLING. Performed By: #### 5 6101 #### [facility] [address] [place] [address], [facility] UFH HEPARIN ASSAYon 07-28-20 20 UNFRACTIONATED HEPARIN >1.00 Critically high 0.30-0.7 0 [facility] Comment on above: Result Comment: [place] roxaban and Apixaban will interfere with the anti Xa assay used to monitor UFH and LMWH. Results called. Accurately read back by Khushbu Shetty RN at 1415. Patient given a bolus of heparin prior to draw, causing elevated heparin levels Performed By: #### 5 [id number] #### [facility] [address] [facility]. [address] UNFRACTIONATED HEPARIN 0.38 IU/mL Normal 0.30-0.70 Th e [facility] Comment on above: Result Comment: [place]ac[place] roxaban and Apixaban will interfere with the anti Xa assay used to monitor UFH and LMWH. Performed By: #### 0 0071, 20188 #### [facility] [address] [facility] [place] [address], [facility] APTTon 07-27-2020 aPTT Coag (Bld) [Time] 39.6 s High 25.0-35.0 Th e [facility] Comment on above: Order Comment: No: [...] THIS PURPOSE. Performed By: #### 5 3629, 62692, 03594 #### [facility] [address] [facility] [place] [address], [facility] aPTT Coag (Bld) [Time] 47.4 s High 25.0-35.0 Th e [facility] Comment on above: Result Comment: ALL [...] PURPOSE. Performed By: #### 5 [id number] #### [facility] [address] [place] [address], [facility] LIPID PROFILEon 07-27-2020 Cholesterol [Mass/Vol] 173 mg/dL Normal 120-200 Th e [facility] Comment on above: Result Comment: CHOL ESTEROL REFERENCE RANGE: 20 YEARS AND OLDER CARDIOVASCULAR RISK Less than 200 mg/dl Low Risk 200 to 239 mg/dl Borderline Risk 240 mg/dl and greater High Risk Performed By: #### 5 3629, 15822, 37934 #### [facility] [address] [place] [address], [place] Cholesterol in HDL [Mass/Vol] 33 mg/dL Normal 23-92 [facility] Comment on above: Result Comment: Slig ht variation in normal range could be due to gender and/or age. HDL CHOLESTEROL REFERENCE RANGE: 20 years and older Cardiovascular Risk > or =60 mg/dL Desirable 40 TO 59 mg/dL Low Risk <40 mg/dL High Risk Performed By: #### 5 3629, 14511, 32517 #### [facility] [address] [place] [address], [facility] Cholesterol in LDL [Mass/Vol] 98 mg/dL Normal 0-130 [facility] Comment on above: Result Comment: LDL IS A CALCULATION LDL IS ONLY VALID IF THE TRIG IS LESS THAN 400. Performed By: #### 5 3629, 26702, 27080 #### [facility] [address] [facility] [address], [facility] Cholesterol.total/Chol esterol in HDL [Mass ratio] 5.2 {ratio} High 0.0-4.5 [facility] Comment on above: Performed By: #### 5 3629, 04742, 90614 #### [facility] [address] [place] [address], [place] NON-HDL CHOLESTEROL 140 mg/dL Normal [facility] Comment on above: Performed By: #### 5 3629, 94332, 39997 #### [facility] [address] [place] [address], [place] Triglyceride [Mass/Vol] 210 mg/dL High 40-149 [facility] Comment on above: Result Comment: TRIG LYCERIDE REFERENCE RANGE: 20 YEARS AND OLDER CARDIOVASCULAR RISK LESS THAN 150 mg/dl LOW RISK 150 TO 199 mg/dl BORDERLINE RISK 200 mg/dl AND GREATER HIGH RISK Performed By: #### 5 3629, 34036, 59279 #### [facility] [address] [facility] [address] VLDL CHOL 42 mg/dL High 0-40 The [facility] Comment on above: Performed By: #### 5 3629, 41907, 65637 #### [facility] [address] [facility] PROTHROMBIN TIMEon 0 INR Coag (PPP) [Relative time] 2.07 {INR} High 0.91-1.16 [facility] Comment on above: Result Comment: ACCC [...] CHEST 1995;108:231S-246S. Performed By: #### 5 3629, 01231, 17821 #### [facility] [address] [facility] PT Coag (PPP) [Time] 23.4 s High 12.3-14.8 [facility] Comment on above: Result Comment: ALL RESULTS MUST BE INTERPRETED WITH RESPECT TO BLOOD DRAWING ARTIFACT OR DILUTION ERROR OF ANTICOAGULANT AT THE TIME OF SAMPLING. Performed By: #### 5 3629, 70040, 12503 #### [facility] [address] [facility] [place] [address], [facility] INR Coag (PPP) [Relative time] 3.07 {INR} High 0.91-1.16 [facility] Comment on above: Order Comment: 12 [...] 1995;108:231S-246S. Performed By: #### 5 6101 #### [facility] [address] [facility] [place] [address], [facility] PT Coag (PPP) [Time] 32.0 s High 12.3-14.8 [facility] Comment on above: Order Comment: 12 ho urs post vitamin K administration/pre-procedure warfarin reversal No: Do not add to previous draw Result Comment: ALL RESULTS MUST BE INTERPRETED WITH RESPECT TO BLOOD DRAWING ARTIFACT OR DILUTION ERROR OF ANTICOAGULANT AT THE TIME OF SAMPLING. Performed By: #### 5 6101 #### [facility] [address] [facility] [place] [address], [facility] TROPONIN-Ion 07-27-2020 Troponin I.cardiac [Mass/Vol] 0.01 ng/mL Normal 0.00-0.04 [facility] Comment on above: Order Comment: No: D o not add to previous draw Result Comment: REFE RENCE RANGES: 0.00 - 0.04 ng/ml NORMAL 0.05 - 0.50 ng/ml INDETERMINATE > 0.50 ng/ml CONSISTENT WITH AN M.I. Performed By: #### 5 3629, 29212, 51715 #### [facility] [address] [employer] UFH HEPARIN ASSAYon 07-27-20 20 UNFRACTIONATED HEPARIN <0.10 Critically low 0.30-0.70 [facility] Comment on above: Result Comment: [place] roxaban and Apixaban will interfere with the anti Xa assay used to monitor UFH and LMWH. RESULTS CHECKED AND CALLED. ACCURATELY READ BACK BY Saeid Lees RN at 2122. Performed By: #### 5 3629, 54898, 04120 #### [facility] [address] [facility]. [address] APTTon 07-26-2020 aPTT Coag (Bld) [Time] 44.0 s High 25.0-35.0 Th e [facility] Comment on above: Order Comment: No: [...] THIS PURPOSE. Performed By: #### 5 3629, 68244, 97400 #### [facility] [address] [employer] [employer] BASIC METABOLIC PANELon Calcium [Mass/Vol] 8.4 mg/dL Low 8.6-10.[address] [facility] Comment on above: Order Comment: No: D o not add to previous draw Performed By: #### 5 3629, 95756, 63910 #### [facility] [address] [place] [address], [place] Chloride [Moles/Vol] 107 mmol/L Normal 98-107 [facility] Comment on above: Order Comment: No: D o not add to previous draw Performed By: #### 5 3629, 85024, 21624 #### [facility] [address] [place] [address], [place] CO2 [Moles/Vol] 23 mmol/L Normal 21-31 [facility] Comment on above: Order Comment: No: D o not add to previous draw Performed By: #### 5 3629, 96927, 85576 #### [facility] [address] [place] [address], [place] Creatinine [Mass/Vol] 1.00 mg/dL Normal 0.60-1.20 [facility] Comment on above: Order Comment: No: D o not add to previous draw Performed By: #### 5 3629, 25334, 14581 #### [facility] [address] [place] [address], [place] GFR/1.73 sq M predicted among blacks MDRD (S/P/Bld) [Vol rate/Area] mL/min/{1.73_m2} Normal >60 [facility] Comment on above: Order Comment: No: D o not add to previous draw Result Comment: Calc ulation may not be valid for patients over 70 years Performed By: #### 5 3629, 65825, 70423 #### [facility] [address] [place] [address], [place] GFR/1.73 sq M predicted among non-blacks MDRD (S/P/Bld) [Vol rate/Area] 53 ml/min/1.73sq m Abnormal >60 [facility] Comment on above: Order Comment: No: D o not add to previous draw Result Comment: Calc ulation may not be valid for patients over 70 years Performed By: #### 5 3629, 80924, 31528 #### [facility] [address] [place] [address], [facility] Glucose [Mass/Vol] 144 mg/dL High 70-100 [facility] Comment on above: Order Comment: No: D o not add to previous draw Performed By: #### 5 3629, 66197, 81438 #### [facility] [address] [place] [address], [facility] Potassium [Moles/Vol] 3.9 mmol/L Normal 3.5-5.1 [facility] Comment on above: Order Comment: No: D o not add to previous draw Performed By: #### 5 3629, 55263, 55846 #### [facility] [address] [place] [address], [facility] Sodium [Moles/Vol] 139 mmol/L Normal 136-145 [facility] Comment on above: Order Comment: No: D o not add to previous draw Performed By: #### 5 3629, 89376, 23887 #### [facility] [address] [place] [address], [facility] Urea nitrogen [Mass/Vol] 24 mg/dL Normal 7-25 [facility] Comment on above: Order Comment: No: D o not add to previous draw Performed By: #### 5 3629, 14954, 63024 #### [facility] [address] [place] [address], [facility] BNP (B-TYPE NATRIURETIC PEPT BALTA)on 07-26-2020 Natriuretic peptide B (Bld) [Mass/Vol] 259 pg/mL High 0-100 [facility] Comment on above: Order Comment: No: D o not add to previous draw Result Comment: Give n the appropriate clinical setting a BNP result of >100 pg/mL indicates congestive heart failure. Performed By: #### 5 3629, 26978, 64656 #### [facility] [address] [place] [address], [facility] CBC W/DIFFon 07-26-2020 ABS BASOPHILS 0.1 10*3/uL Normal 0.0-0.2 [facility] Comment on above: Order Comment: 12 ho urs post vitamin K administration/pre-procedure warfarin reversal No: Do not add to previous draw Performed By: #### 5 6101 #### [facility] [address] [place] [address], [facility] ABS IMM GRANS 0.3 10*3/uL High 0.0-0.2 [facility] Comment on above: Order Comment: 12 ho urs post vitamin K administration/pre-procedure warfarin reversal No: Do not add to previous draw Performed By: #### 5 6101 #### [facility] [address] [facility] [place] [address], [facility] ABS NEUTROPHILS 5.9 10*3/uL Normal 1.6-7.6 [facility] Comment on above: Order Comment: 12 ho urs post vitamin K administration/pre-procedure warfarin reversal No: Do not add to previous draw Performed By: #### 5 6101 #### [facility] [address] [facility] [place] [address], [facility] Basophils/100 WBC (Bld) 0.8 % Normal 0.0-1.0 [facility] Comment on above: Order Comment: 12 ho urs post vitamin K administration/pre-procedure warfarin reversal No: Do not add to previous draw Performed By: #### 5 6101 #### [facility] [address] [facility] [place] [id number], [facility] Eosinophils (Bld) [#/Vol] 0.4 10*3/uL Normal 0.0-0.5 [facility] Comment on above: Order Comment: 12 ho urs post vitamin K administration/pre-procedure warfarin reversal No: Do not add to previous draw Performed By: #### 5 6101 #### [facility] [address] [place] [address], [facility] Eosinophils/100 WBC (Bld) 3.8 % Normal 0.0-6.0 [facility] Comment on above: Order Comment: 12 ho urs post vitamin K administration/pre-procedure warfarin reversal No: Do not add to previous draw Performed By: #### 5 6101 #### [facility] [address] Erythrocyte distribution width (RBC) [Ratio] 16.9 % High 11.5-15.0 [facility] Comment on above: Order Comment: 12 ho urs post vitamin K administration/pre-procedure warfarin reversal No: Do not add to previous draw Performed By: #### 5 6101 #### [facility] [address] [place] [address], [facility] Hematocrit (Bld) [Volume fraction] 43.8 % Normal 36.0-45.0 [facility] Comment on above: Order Comment: 12 ho urs post vitamin K administration/pre-procedure warfarin reversal No: Do not add to previous draw Performed By: #### 5 6101 #### [facility] [address] [facility] Hemoglobin (Bld) [Mass/Vol] 13.7 g/dL Normal 12.0-15.0 [facility] Comment on above: Order Comment: 12 ho urs post vitamin K administration/pre-procedure warfarin reversal No: Do not add to previous draw Performed By: #### 5 6101 #### [facility] [address] [place] [address], [facility] IMMATURE GRANS 3.6 % High 0.0-1.0 [facility] Comment on above: Order Comment: 12 ho urs post vitamin K administration/pre-procedure warfarin reversal No: Do not add to previous draw Performed By: #### 5 6101 #### [facility] [address] [place] [address], [facility] Lymphocytes (Bld) [#/Vol] 2.1 10*3/uL Normal 1.2-4.0 [facility] Comment on above: Order Comment: 12 ho urs post vitamin K administration/pre-procedure warfarin reversal No: Do not add to previous draw Performed By: #### 5 6101 #### [facility] [address] [place] [address], [facility] Lymphocytes/100 WBC (Bld) 22.0 % Normal 20.0-45.0 [facility] Comment on above: Order Comment: 12 ho urs post vitamin K administration/pre-procedure warfarin reversal No: Do not add to previous draw Performed By: #### 5 6101 #### [facility] [address] [place] [address], [facility] MCH (RBC) [Entitic mass] 29.0 pg Normal 27.0-33.0 [facility] Comment on above: Order Comment: 12 ho urs post vitamin K administration/pre-procedure warfarin reversal No: Do not add to previous draw Performed By: #### 5 6101 #### [facility] [address] [place] [address], [facility] MCHC (RBC) [Mass/Vol] 31.3 g/dL Low 32.0-35.0 [facility] Comment on above: Order Comment: 12 ho urs post vitamin K administration/pre-procedure warfarin reversal No: Do not add to previous draw Performed By: #### 5 6101 #### [facility] [address] [facility] [address], [facility] MCV (RBC) [Entitic vol] 92.6 fL Normal 82.0-98.0 [facility] Comment on above: Order Comment: 12 ho urs post vitamin K administration/pre-procedure warfarin reversal No: Do not add to previous draw Performed By: #### 5 6101 #### [facility] [address] [place] [address], [facility] Monocytes (Bld) [#/Vol] 0.7 10*3/uL Normal 0.1-1.0 [facility] Comment on above: Order Comment: 12 ho urs post vitamin K administration/pre-procedure warfarin reversal No: Do not add to previous draw Performed By: #### 5 6101 #### [facility] [address] [place] [address], [facility] MONOS 7.5 % Normal 5.0-12.0 [facility] Comment on above: Order Comment: 12 ho urs post vitamin K administration/pre-procedure warfarin reversal No: Do not add to previous draw Performed By: #### 5 6101 #### [facility] [address] [place] [address], [place] Neutrophils/100 WBC (Bld) 62.3 % Normal 40.0-72.0 [facility] Comment on above: Order Comment: 12 ho urs post vitamin K administration/pre-procedure warfarin reversal No: Do not add to previous draw Performed By: #### 5 6101 #### [facility] [address] [place] [address], [facility] Nucleated RBC/100 WBC (Bld) [Ratio] 1 % High 0-0 [facility] Comment on above: Order Comment: 12 ho urs post vitamin K administration/pre-procedure warfarin reversal No: Do not add to previous draw Performed By: #### 5 6101 #### [facility] [address] [place] [address], [place] PLAT CNT 296 10*3/uL Normal 150-400 [facility] Comment on above: Order Comment: 12 ho urs post vitamin K administration/pre-procedure warfarin reversal No: Do not add to previous draw Performed By: #### 5 6101 #### [facility] [address] [place] [address], [facility] RBC (Bld) [#/Vol] 4.73 10*6/uL Normal 3.80-5.00 [facility] Comment on above: Order Comment: 12 ho urs post vitamin K administration/pre-procedure warfarin reversal No: Do not add to previous draw Performed By: #### 5 6101 #### [facility] [address] [place] [address], [place] WBC (Bld) [#/Vol] 9.48 10*3/uL Normal 4.00-10.60 [facility] Comment on above: Order Comment: 12 ho urs post vitamin K administration/pre-procedure warfarin reversal No: Do not add to previous draw Performed By: #### 5 6101 #### [facility] [address] CPK-MB PROFILEon 07-26-2020 CK [Catalytic activity/Vol] 24 U/L Low 30-223 [facility] Comment on above: Order Comment: No: D o not add to previous draw Performed By: #### 1 0070, 10360, 39922, 92354, 54812, 17480 #### [facility] [address] CK.MB [Mass/Vol] 1.5 ng/mL Normal 0.0-5.0 [facility] Comment on above: Order Comment: No: D o not add to previous draw Result Comment: IF T OTAL CK <200 U/L AND: 1. CKMB IS 5-10 NG/ML----BORDERLINE 2. CKMB IS >10 NG/ML----INDICATIVE OF MD OR IF TOTAL CK >200 U/L AND CKMB INDEX >1.9----INDICATIVE OF MD Performed By: #### 1 0070, 04429, 54084, 84886, 15934, 19107 #### [facility] [address] CK.MB [Mass/Vol] 6.3 ng/mL Critically high 0.0-1.9 [facility] Comment on above: Order Comment: No: D o not add to previous draw Performed By: #### 1 0070, 37159, 22078, 04188, 65934, 35197 #### [facility] [address] [place] [address], [facility] D DIMER TESTon 07-26-2020 D-DIMER TEST 2.34 mcg/mL FEU High 0.27-0.49 [facility] Comment on above: Order Comment: No: D o not add to previous draw Result Comment: D-Di ricky values of less than 0.50 ug/ml (FEU) are considered to be a negative predictor of thrombosis. However, the D-Dimer result should be used in conjunction with pretest probability and should not be used alone to diagnose a thrombotic event. Performed By: #### 5 3629, 74181, 02627 #### [facility] [address] [place], [place] [address] History and Physicalon 07-26 History and Physical MR#: [id number] [facility] Pt. Name: Lesa Golden Admitted: 07/26/2020 Date of : 1940 Attending Physician: Jaqueline Quevedo M.D. Room #: [id number] Discharge Date: HISTORY AND PHYSICAL CHIEF COMPLAINT: Shortness of breath. HISTORY OF PRESENT ILLNESS: The patient is a 79-year-old female with a past medical history of atrial fibrillation, on Coumadin, fibromyalgia, hypertension, and history of COVID at the beginning of June, presented to [facility] as a direct transfer from [facility] ER. The patient presented to the ER today because of increasing shortness of breath. She states that it especially got worse over the weekends, so she came to the ER for evaluation. In the ER, she was found to be in atrial fibrillation with RVR and cardiology was called, so they requested the patient to be transferred to [facility]. Her initial heart rate was 120 [...] Normal affect and mood. LABORATORY DATA: From [facility] ER shows white blood cells 9.1, [...] and GI prophylaxis. 7. PT, OT, and [employer] for discharge planning. Electronically Signed by: Jaqueline Quevedo M.D. 07/27/2020 10:46 A Jaqueline Quevedo M.D. Date Dict: 07/26/2020/06:24 P/Jaqueline Quevedo M.D. Date Trans: 07/26/2020 07:50 P/mmo [id number] Normal [facility] LIVER BATTERYon 07-26-2020 Albumin [Mass/Vol] 3.4 g/dL Low 3.5-5.7 [facility] Comment on above: Order Comment: No: D o not add to previous draw Performed By: #### 5 3629, 03781, 61013 #### [facility] [address] [place] [address], [facility] ALKALINE PHOSPH 82 IU/L Normal 34-104 [facility] Comment on above: Order Comment: No: D o not add to previous draw Performed By: #### 5 3629, 34677, 09633 #### [facility] [address] [place] [address], [place] ALT [Catalytic activity/Vol] 28 U/L Normal 7-52 [facility] Comment on above: Order Comment: No: D o not add to previous draw Performed By: #### 5 3629, 72955, 58386 #### [facility] [address] [place] [address], [place] AST [Catalytic activity/Vol] 26 U/L Normal 13-39 [facility] Comment on above: Order Comment: No: D o not add to previous draw Performed By: #### 5 3629, 08804, 26140 #### [facility] [address] [place] [address], [place] Bilirubin [Mass/Vol] 0.6 mg/dL Normal 0.3-1.0 [facility] Comment on above: Order Comment: No: D o not add to previous draw Performed By: #### 5 3629, 62882, 22915 #### [facility] [address] [place] [address], [facility] Bilirubin.direct [Mass/Vol] 0.2 mg/dL Normal 0.0-0.2 [facility] Comment on above: Order Comment: No: D o not add to previous draw Performed By: #### 5 3629, 76946, 91276 #### [facility] [address] [place] [address], [facility] Protein [Mass/Vol] 5.8 g/dL Low 6.0-8.3 [facility] Comment on above: Order Comment: No: D o not add to previous draw Performed By: #### 5 3629, 66041, 75383 #### [facility] [address] [place] [address], [facility] MAGNESIUM BLOODon 07-26-2020 Magnesium [Mass/Vol] 1.8 mg/dL Low 1.9-2.7 [facility] Comment on above: Order Comment: No: D o not add to previous draw Performed By: #### 5 3629, 53969, 47544 #### [facility] [address] [place] [address], [place] PHOSPHORUS BLOODon 0 Phosphate [Mass/Vol] 3.4 mg/dL Normal 2.5-5.0 [facility] Comment on above: Order Comment: No: D o not add to previous draw Performed By: #### 5 3629, 10600, 94341 #### [facility] [address] [facility] [place] [address], [facility] PROTHROMBIN TIMEon 0 INR Coag (PPP) [Relative time] 3.23 {INR} High 0.91-1.16 [facility] Comment on above: Order Comment: No: [...] CHEST 1995;108:231S-246S. Performed By: #### 5 3629, 62750, 56846 #### [facility] [address] [facility] [place] [address], [facility] PT Coag (PPP) [Time] 33.3 s High 12.3-14.8 [facility] Comment on above: Order Comment: No: D o not add to previous draw Result Comment: ALL RESULTS MUST BE INTERPRETED WITH RESPECT TO BLOOD DRAWING ARTIFACT OR DILUTION ERROR OF ANTICOAGULANT AT THE TIME OF SAMPLING. Performed By: #### 5 3629, 52157, 22340 #### [facility] [address] [facility] [place] [address], [facility] TROPONIN-Ion 07-26-2020 Troponin I.cardiac [Mass/Vol] 0.01 ng/mL Normal 0.00-0.04 [facility] Comment on above: Order Comment: No: D o not add to previous draw Result Comment: EVE CASEY RANGES: 0.00 - 0.04 ng/ml NORMAL 0.05 - 0.50 ng/ml INDETERMINATE > 0.50 ng/ml CONSISTENT WITH AN M.I. Performed By: #### 5 3629, 68511, 75993 #### [address] Vital Signs Date Time Vital Sign Value Performing Clinician Facility 01-28-2024 15:25-0400 Body height 149.86 cm DO Chester Ball Work Phone: [facility] 01-28-2024 15:25-0400 Body mass index (BMI) [Ratio] 31.4 kg/m2 DO Chester Ball Work Phone: [facility] 01-28-2024 15:25-0400 Body weight 70.47 kg DO Chester Ball Work Phone: [facility] 01-28-2024 15:25-0400 Diastolic blood pressure 79 mm[Hg] DO Chester Ball Work Phone: [facility] 01-28-2024 15:25-0400 Heart rate 72 /min DO Chester Ball Work Phone: [facility] 01-28-2024 15:25-0400 Respiratory rate 20 /min DO Chester Ball Work Phone: [facility] 01-28-2024 15:25-0400 Systolic blood pressure 137 mm[Hg] DO Chester Ball Work Phone: [facility] 01-22-2024 12:46-0400 Body height 149.9 cm [facility] 01-22-2024 12:46-0400 Body mass index (BMI) [Ratio] 30.9 kg/m2 [facility] 01-22-2024 12:46-0400 Body weight 69.4 kg [facility] 01-22-2024 12:46-0400 Diastolic blood pressure 94 mm[Hg] [facility] 01-22-2024 12:46-0400 Heart rate 71 /min [facility] 01-22-2024 12:46-0400 Systolic blood pressure 134 mm[Hg] [place] [facility] 01-20-2024 12:00-0400 Diastolic blood pressure 86 mm[Hg] DO Chester Ball Work Phone: [facility] 01-20-2024 12:00-0400 Heart rate 78 /min DO Chester Ball Work Phone: [facility] 01-20-2024 12:00-0400 Respiratory rate 18 /min DO Chester Ball Work Phone: [facility] 01-20-2024 12:00-0400 SaO2% (BldA) [Mass fraction] 96 % DO Chester Ball Work Phone: [facility] 01-20-2024 12:00-0400 Systolic blood pressure 128 mm[Hg] DO Chester Ball Work Phone: [facility] 01-20-2024 09:23-0400 Body temperature 97.9 [degF] DO Chester Ball Work Phone: [facility] 01-20-2024 06:00-0400 Body weight 70 kg DO Chester Ball Work Phone: [facility] 01-18-2024 21:55-0400 Body height 149.86 cm DO Chester Ball Work Phone: [facility] 01-18-2024 21:00-0400 Diastolic blood pressure 97 mm[Hg] DO Chester Ball Work Phone: [facility] 01-18-2024 21:00-0400 Heart rate 118 /min DO Chester Ball Work Phone: [facility] 01-18-2024 21:00-0400 Respiratory rate 18 /min DO Chester Ball Work Phone: [facility] 01-18-2024 21:00-0400 SaO2% (BldA) [Mass fraction] 95 % DO Chester Ball Work Phone: [facility] 01-18-2024 21:00-0400 Systolic blood pressure 138 mm[Hg] DO Chester Ball Work Phone: [facility] 01-18-2024 15:05-0400 Body height 149.86 cm DO Chester Ball Work Phone: [facility] 01-18-2024 15:05-0400 Body temperature 97.8 [degF] DO Chester Ball Work Phone: [facility] 01-18-2024 15:05-0400 Body weight 69.9 kg DO Chester Ball Work Phone: [facility] 11-27-2023 15:07-0400 Body height 160.02 cm DO Chester Ball Work Phone: [facility] 11-27-2023 15:07-0400 Body mass index (BMI) [Ratio] 29.1 kg/m2 DO Chester Ball Work Phone: [facility] 11-27-2023 15:07-0400 Body weight 74.61 kg DO Chester Ball Work Phone: [facility] [facility] 11-27-2023 15:07-0400 Diastolic blood pressure 83 mm[Hg] DO Chester Ball Work Phone: [facility] 11-27-2023 15:07-0400 Heart rate 116 /min DO Chester Ball Work Phone: [facility] 11-27-2023 15:07-0400 Respiratory rate 12 /min DO Chester Ball Work Phone: [facility] 11-27-2023 15:07-0400 Systolic blood pressure 135 mm[Hg] DO Chester Ball Work Phone: [facility] 09-19-2023 13:07-0500 Body height 149.9 cm Debbie Mac MD Work Phone: [facility] 09-19-2023 13:07-0500 Body mass index (BMI) [Ratio] 33.2 kg/m2 Debbie Mac MD Work Phone: [facility] 09-19-2023 13:07-0500 Body weight 74.57 kg Debbie Mac MD Work Phone: [facility] 09-19-2023 13:07-0500 Diastolic blood pressure 92 mm[Hg] Debbie Mac MD Work Phone: [facility] 09-19-2023 13:07-0500 Heart rate 91 /min Debbie Mac MD Work Phone: [facility] 09-19-2023 13:07-0500 Systolic blood pressure 126 mm[Hg] Debbie Mac MD Work Phone: [facility] 08-21-2023 13:27-0500 Body height 149.[address] 08-21-2023 13:27-0500 Body mass index (BMI) [Ratio] 33.33 kg/m2 [address] 08-21-2023 13:27-0500 Body weight 74.[address] 08-21-2023 13:27-0500 Diastolic blood pressure 64 mm[Hg] [address] 08-21-2023 13:27-0500 Systolic blood pressure 116 mm[Hg] [address] 08-19-2023 12:15-0500 Body height 160.02 cm Sabina Garcia Other [employer] Other 05-31-2023 15:24-0400 Body height 149.9 cm Debbie Mac MD Work Phone: [facility] 05-31-2023 15:24-0400 Body mass index (BMI) [Ratio] 33.33 kg/m2 Debbie Mac MD Work Phone: [facility] 05-31-2023 15:24-0400 Body weight 74.84 kg Debbie Mac MD Work Phone: [facility] 05-31-2023 15:24-0400 Diastolic blood pressure 64 mm[Hg] Debbie Mac MD Work Phone: [facility] 05-31-2023 15:24-0400 Heart rate 70 /min Debbie Mac MD Work Phone: [facility] 05-31-2023 15:24-0400 Systolic blood pressure 122 mm[Hg] Debbie Mac MD Work Phone: [facility] 03-21-2023 15:00-0400 Body height 160.02 cm Chester Ball Other [employer] [facility] [employer] Other 03-21-2023 15:00-0400 Body mass index (BMI) [Ratio] 28.62 kg/m2 Chester Ball Other [employer] [facility] [employer] Other 03-21-2023 15:00-0400 Body weight 73.3 kg Chester Ball Other [employer] [facility] [employer] Other 03-21-2023 15:00-0400 Diastolic blood pressure 79 mm[Hg] Chester Ball Other [employer] Other 03-21-2023 15:00-0400 Respiratory rate 12 /min Chester Ball Other [employer] Other 03-21-2023 15:00-0400 Systolic blood pressure 124 mm[Hg] Chester Ball Other [employer] Other 03-05-2023 14:42-0400 Diastolic blood pressure 76 mm[Hg] DO Chester Ball Work Phone: [facility] 03-05-2023 14:42-0400 Heart rate 92 /min DO Chester Ball Work Phone: [facility] 03-05-2023 14:42-0400 Inhaled oxygen flow rate 3 L/min DO Chester Ball Work Phone: [facility] 03-05-2023 14:42-0400 Respiratory rate 16 /min DO Chester Ball Work Phone: [facility] 03-05-2023 14:42-0400 SaO2% (BldA) [Mass fraction] 93 % DO Chester Ball Work Phone: [facility] 03-05-2023 14:42-0400 Systolic blood pressure 129 mm[Hg] DO Chester Ball Work Phone: [facility] 03-05-2023 13:48-0400 Body temperature 97 [degF] DO Chester Ball Work Phone: [facility] 03-05-2023 09:23-0400 Body height 149.86 cm DO Chester Ball Work Phone: [facility] 03-05-2023 09:23-0400 Body weight 73 kg DO Chester Ball Work Phone: [facility] 01-25-2023 13:09-0400 Body height 149.86 cm Chester E Ball Work Phone: [facility] Work Phone: 01-25-2023 13:09-0400 Body mass index (BMI) [Ratio] 32.52 kg/m2 Chester E Ball Work Phone: [facility] Work Phone: 01-25-2023 13:09-0400 Body surface area Derived from formula 1.68 m2 Chester E Ball Work Phone: [facility] Work Phone: 01-25-2023 13:09-0400 Body weight 73.03 kg Chester E Ball Work Phone: [facility] Work Phone: 01-25-2023 13:09-0400 Diastolic blood pressure 78 mm[Hg] Chester E Ball Work Phone: [facility] Work Phone: 01-25-2023 13:09-0400 Heart rate 72 /min Chester E Ball Work Phone: [facility] Work Phone: 01-25-2023 13:09-0400 Systolic blood pressure 126 mm[Hg] Chester E Ball Work Phone: [facility] Work Phone: 01-09-2023 17:07-0400 Diastolic blood pressure 98 mm[Hg] DO Chester Ball Work Phone: [facility] 01-09-2023 17:07-0400 Heart rate 70 /min DO Chester Ball Work Phone: [facility] 01-09-2023 17:07-0400 Respiratory rate 14 /min DO Chester Ball Work Phone: [facility] 01-09-2023 17:07-0400 SaO2% (BldA) [Mass fraction] 95 % DO Chester Ball Work Phone: [facility] 01-09-2023 17:07-0400 Systolic blood pressure 130 mm[Hg] DO Chester Ball Work Phone: [facility] 01-09-2023 10:54-0400 Body height 149.86 cm DO Chester Ball Work Phone: [facility] 01-09-2023 10:54-0400 Body temperature 98.6 [degF] DO Chester Ball Work Phone: [facility] 01-09-2023 10:54-0400 Body weight 73.2 kg DO Chester Ball Work Phone: [facility] 01-04-2023 14:23-0400 Body height 149.86 cm Chester E Ball Work Phone: [facility] Work Phone: 01-04-2023 14:23-0400 Body mass index (BMI) [Ratio] 32.52 kg/m2 Chester E Ball Work Phone: [facility] Work Phone: 01-04-2023 14:23-0400 Body surface area Derived from formula 1.68 m2 Chester E Ball Work Phone: [facility] Work Phone: 01-04-2023 14:23-0400 Body weight 73.03 kg Chester E Ball Work Phone: 2(741)611-4606[address] [place] [address] Work Phone: 01-04-2023 14:23-0400 Diastolic blood pressure 88 mm[Hg] Chester E Ball Work Phone: 2(358)306-943970 [place] [address] Work Phone: 01-04-2023 14:23-0400 Heart rate 76 /min Chester E Ball Work Phone: 9(704)517-462270 [place] [address] Work Phone: 01-04-2023 14:23-0400 Systolic blood pressure 128 mm[Hg] Chester E Ball Work Phone: [facility] Work Phone: 01-03-2023 14:05-0400 Body height 149.86 cm Chester E Ball Work Phone: [facility] Work Phone: 01-03-2023 14:05-0400 Body mass index (BMI) [Ratio] 33.12 kg/m2 Chester E Ball Work Phone: [facility] Work Phone: 01-03-2023 14:05-0400 Body surface area Derived from formula 1.69 m2 Chester E Ball Work Phone: [facility] Work Phone: 01-03-2023 14:05-0400 Body weight 74.39 kg Chester E Ball Work Phone: [facility] Work Phone: 01-03-2023 14:05-0400 Diastolic blood pressure 62 mm[Hg] Chester E Ball Work Phone: [facility] Work Phone: 01-03-2023 14:05-0400 Heart rate 70 /min Chester E Ball Work Phone: [facility] Work Phone: 01-03-2023 14:05-0400 Systolic blood pressure 118 mm[Hg] Chester E Ball Work Phone: [facility] Work Phone: 12-25-2022 13:41-0400 Diastolic blood pressure 84 mm[Hg] Chester E Ball Work Phone: [facility] Work Phone: 12-25-2022 13:41-0400 Heart rate 107 /min Chester E Ball Work Phone: [facility] Work Phone: 12-25-2022 13:41-0400 Respiratory rate 16 /min Chester E Ball Work Phone: [facility] Work Phone: 12-25-2022 13:41-0400 SaO2% (BldA) [Mass fraction] 96 % Chester E Ball Work Phone: [facility] Work Phone: 12-25-2022 13:41-0400 Systolic blood pressure 132 mm[Hg] Chester E Ball Work Phone: [facility] Work Phone: 11-27-2022 09:24-0400 Body height 149.86 cm DO Chester Ball Work Phone: [facility] 11-27-2022 09:24-0400 Body temperature 98 [degF] DO Chester Ball Work Phone: [facility] 11-27-2022 09:24-0400 Body weight 73 kg DO Chester Ball Work Phone: [facility] 11-27-2022 09:24-0400 Diastolic blood pressure 82 mm[Hg] DO Chester Ball Work Phone: [facility] 11-27-2022 09:24-0400 Heart rate 105 /min DO Chester Ball Work Phone: [facility] 11-27-2022 09:24-0400 Respiratory rate 18 /min DO Chester Ball Work Phone: [facility] 11-27-2022 09:24-0400 SaO2% (BldA) [Mass fraction] 97 % DO Chester Ball Work Phone: [facility] 11-27-2022 09:24-0400 Systolic blood pressure 136 mm[Hg] DO Chester Ball Work Phone: [facility] 10-24-2022 14:30-0500 Body height 160.02 cm Rachel Larios Other [facility] [employer] Other 10-24-2022 14:30-0500 Body mass index (BMI) [Ratio] 28.16 kg/m2 Rachel Larios Other [employer] [facility] [employer] Other 10-24-2022 14:30-0500 Body weight 72.12 kg Rachel Larios Other [employer] [facility] [employer] Other 10-24-2022 14:30-0500 Diastolic blood pressure 98 mm[Hg] Rachel Larios Other [employer] Other 10-24-2022 14:30-0500 SaO2% (BldA) [Mass fraction] 97 % Rachel Larios Other [employer] Other 10-24-2022 14:30-0500 Systolic blood pressure 152 mm[Hg] Rachel Larios Other [employer] Other 10-13-2022 10:48-0500 Body height 149.86 cm Chester E Ball Work Phone: [facility] DO Work Phone: 10-13-2022 10:48-0500 Body mass index (BMI) [Ratio] 32.11 kg/m2 Chester Hahn Ball Work Phone: [facility] [employer] DO Work Phone: 10-13-2022 10:48-0500 Body surface area Derived from formula 1.67 m2 Chester Hahn Ball Work Phone: [facility] [employer] DO Work Phone: 10-13-2022 10:48-0500 Body weight 72.12 kg Chester Hahn Ball Work Phone: [facility] [employer] DO Work Phone: 10-13-2022 10:48-0500 Diastolic blood pressure 66 mm[Hg] Chester Hahn Ball Work Phone: [facility] [employer] [facility] DO Work Phone: 10-13-2022 10:48-0500 Heart rate 72 /min Chester Hahn Ball Work Phone: [facility] [employer] DO Work Phone: 10-13-2022 10:48-0500 Systolic blood pressure 98 mm[Hg] Chester Hahn Ball Work Phone: [facility] [employer] DO Work Phone: 09-27-2022 13:36-0500 Body height 149.86 cm Chester Hahn Ball Work Phone: [facility] DO Work Phone: 09-27-2022 13:36-0500 Body mass index (BMI) [Ratio] 31.91 kg/m2 Chester Hahn Ball Work Phone: [facility] [employer] DO Work Phone: 09-27-2022 13:36-0500 Body surface area Derived from formula 1.67 m2 Chester E Ball Work Phone: [facility] DO Work Phone: 09-27-2022 13:36-0500 Body weight 71.67 kg Chester E Ball Work Phone: [facility] DO Work Phone: 09-27-2022 13:36-0500 Diastolic blood pressure 86 mm[Hg] Chester E Ball Work Phone: [facility] DO Work Phone: 09-27-2022 13:36-0500 Heart rate 70 /min Chester E Ball Work Phone: [facility] DO Work Phone: 09-27-2022 13:36-0500 Systolic blood pressure 122 mm[Hg] Chester E Ball Work Phone: [facility] DO Work Phone: 09-21-2022 16:34-0500 Body temperature 97.8 [degF] DO Chester Ball Work Phone: [facility] 09-21-2022 16:34-0500 Diastolic blood pressure 77 mm[Hg] DO Chester Ball Work Phone: [facility] 09-21-2022 16:34-0500 Heart rate 68 /min DO Chester Ball Work Phone: [facility] 09-21-2022 16:34-0500 Respiratory rate 18 /min DO Chester Ball Work Phone: [facility] 09-21-2022 16:34-0500 SaO2% (BldA) [Mass fraction] 96 % DO Chester Ball Work Phone: [facility] 09-21-2022 16:34-0500 Systolic blood pressure 134 mm[Hg] DO Chester Ball Work Phone: [facility] 09-21-2022 06:00-0500 Body weight 73.2 kg DO Chester Ball Work Phone: [facility] 09-17-2022 15:30-0500 Diastolic blood pressure 81 mm[Hg] DO Chester Ball Work Phone: [facility] 09-17-2022 15:30-0500 Heart rate 75 /min DO Chester Ball Work Phone: [facility] 09-17-2022 15:30-0500 Respiratory rate 16 /min DO Chester Ball Work Phone: [facility] 09-17-2022 15:30-0500 SaO2% (BldA) [Mass fraction] 96 % DO Chester Ball Work Phone: [facility] 09-17-2022 15:30-0500 Systolic blood pressure 139 mm[Hg] DO Chester Ball Work Phone: [facility] 09-17-2022 14:00-0500 Body height 149.86 cm DO Chester Ball Work Phone: [facility] 09-17-2022 14:00-0500 Body weight 72.1 kg DO Chester Ball Work Phone: [facility] 09-17-2022 13:00-0500 Body temperature 97.8 [degF] DO Chester Ball Work Phone: [facility] 09-12-2022 16:00-0500 Body height 160.02 cm Chester Ball Other [facility] [employer] Other 09-12-2022 16:00-0500 Body mass index (BMI) [Ratio] 28.02 kg/m2 Chester Ball Other [facility] [employer] Other 09-12-2022 16:00-0500 Body weight 71.76 kg Chester Ball Other [employer] Other 09-12-2022 16:00-0500 Diastolic blood pressure 76 mm[Hg] Chester Ball Other [facility] [employer] Other 09-12-2022 16:00-0500 Respiratory rate 12 /min Chester Ball Other [facility] [employer] Other 09-12-2022 16:00-0500 SaO2% (BldA) [Mass fraction] 97 % Chester Ball Other [facility] [employer] Other 09-12-2022 16:00-0500 Systolic blood pressure 132 mm[Hg] Chester Ball Other [facility] [employer] Other 09-06-2022 07:32-0500 Body temperature 97 [degF] DO Chester Ball Work Phone: [facility] 09-06-2022 07:32-0500 Diastolic blood pressure 83 mm[Hg] DO Chester Ball Work Phone: [facility] 09-06-2022 07:32-0500 Heart rate 92 /min DO Chester Ball Work Phone: [facility] 09-06-2022 07:32-0500 Respiratory rate 18 /min DO Chester Ball Work Phone: [facility] 09-06-2022 07:32-0500 SaO2% (BldA) [Mass fraction] 94 % DO Chester Ball Work Phone: [facility] 09-06-2022 07:32-0500 Systolic blood pressure 141 mm[Hg] DO Chester Ball Work Phone: [facility] 09-06-2022 06:00-0500 Body weight 70.1 kg DO Chester Ball Work Phone: [facility] 09-04-2022 14:04-0500 Body height 149.86 cm DO Chester Ball Work Phone: [facility] 09-04-2022 12:21-0500 40 1 Chester E Ball Work Phone: [facility] DO Work Phone: Comment on above: [id number] 09-01-2022 22:47-0500 Diastolic blood pressure 85 mm[Hg] DO Chester Ball Work Phone: [facility] 09-01-2022 22:47-0500 Heart rate 98 /min DO Chester Ball Work Phone: [facility] 09-01-2022 22:47-0500 Systolic blood pressure 151 mm[Hg] DO Chester Ball Work Phone: [facility] 09-01-2022 22:30-0500 Respiratory rate 26 /min DO Chester Ball Work Phone: [facility] 09-01-2022 22:30-0500 SaO2% (BldA) [Mass fraction] 98 % DO Chester Ball Work Phone: [facility] 09-01-2022 12:07-0500 Body height 149.86 cm DO Chester Ball Work Phone: [facility] 09-01-2022 12:07-0500 Body temperature 98.3 [degF] DO Chester Ball Work Phone: [facility] 09-01-2022 12:07-0500 Body weight 73 kg DO Chester Ball Work Phone: [facility] 08-24-2022 10:03-0500 Body height 149.86 cm Chester E Ball Work Phone: [facility] DO Work Phone: 08-24-2022 10:03-0500 Body mass index (BMI) [Ratio] 32.92 kg/m2 Chester E Ball Work Phone: [facility] DO Work Phone: 08-24-2022 10:03-0500 Body surface area Derived from formula 1.69 m2 Chester E Ball Work Phone: [facility] DO Work Phone: 08-24-2022 10:03-0500 Body weight 73.94 kg Chester E Ball Work Phone: [facility] DO Work Phone: 08-24-2022 10:03-0500 Diastolic blood pressure 98 mm[Hg] Chester E Ball Work Phone: [facility] DO Work Phone: 08-24-2022 10:03-0500 Heart rate 112 /min Chester E Ball Work Phone: [facility] DO Work Phone: 08-24-2022 10:03-0500 Systolic blood pressure 132 mm[Hg] Chester E Ball Work Phone: [facility] DO Work Phone: 06-26-2022 14:26-0500 Body height 149.86 cm Chester E Ball Work Phone: [facility] DO Work Phone: 06-26-2022 14:26-0500 Body mass index (BMI) [Ratio] 32.92 kg/m2 Chester E Ball Work Phone: [facility] DO Work Phone: 06-26-2022 14:26-0500 Body surface area Derived from formula 1.69 m2 Chester E Ball Work Phone: [facility] DO Work Phone: 06-26-2022 14:26-0500 Body weight 73.94 kg Chester E Ball Work Phone: [facility] DO Work Phone: 06-26-2022 14:26-0500 Diastolic blood pressure 70 mm[Hg] Chester E Ball Work Phone: [facility] [employer] 250 DO Work Phone: 06-26-2022 14:26-0500 Heart rate 71 /min Chester E Ball Work Phone: [facility] [employer] 250 DO Work Phone: 06-26-2022 14:26-0500 Systolic blood pressure 132 mm[Hg] Chester E Ball Work Phone: [facility] [employer] [facility] 250 DO Work Phone: 04-27-2022 14:30-0400 Body height 160.02 cm John Mims Other [employer] Other 04-27-2022 14:30-0400 Body mass index (BMI) [Ratio] 27.45 kg/m2 John Felicita Other [employer] Other 04-27-2022 14:30-0400 Body weight 70.31 kg John Mims Other [employer] Other 03-10-2022 10:53-0400 Diastolic blood pressure 82 mm[Hg] Chester E Ball Work Phone: [facility] [employer] DO Work Phone: 03-10-2022 10:53-0400 Systolic blood pressure 126 mm[Hg] Chester E Ball Work Phone: [facility] [employer] DO Work Phone: 03-10-2022 10:19-0400 Body height 149.86 cm Chester E Ball Work Phone: [facility] [employer] 250 DO Work Phone: 03-10-2022 10:19-0400 Body mass index (BMI) [Ratio] 31.91 kg/m2 Chester E Ball Work Phone: [facility] DO Work Phone: 03-10-2022 10:19-0400 Body surface area Derived from formula 1.67 m2 Chester E Ball Work Phone: [facility] DO Work Phone: 03-10-2022 10:19-0400 Body weight 71.67 kg Chester E Ball Work Phone: [facility] DO Work Phone: 03-10-2022 10:19-0400 Diastolic blood pressure 80 mm[Hg] Chester E Ball Work Phone: [facility] DO Work Phone: 03-10-2022 10:19-0400 Heart rate 78 /min Chester E Ball Work Phone: [facility] DO Work Phone: 03-10-2022 10:19-0400 Systolic blood pressure 146 mm[Hg] Chester E Ball Work Phone: [facility] DO Work Phone: 02-28-2022 15:45-0400 Body height 160.02 cm John Mims Other [employer] Other 02-28-2022 15:45-0400 Body mass index (BMI) [Ratio] 27.45 kg/m2 John Mims Other [employer] Other 02-28-2022 15:45-0400 Body weight 70.31 kg John Mims Other [employer] Other 02-28-2022 15:32-0400 Body weight 0 kg DO Chester Ball Work Phone: [facility] 12-15-2021 08:46-0400 Body weight 0 kg DO Chester Ball Work Phone: [facility] 10-19-2021 16:04-0500 Body height 149.86 cm Chester E Ball Work Phone: [facility] DO Work Phone: 10-19-2021 16:04-0500 Body mass index (BMI) [Ratio] 29.13 kg/m2 Chester E Ball Work Phone: [facility] DO Work Phone: 10-19-2021 16:04-0500 Body surface area Derived from formula 1.6 m2 Chester E Ball Work Phone: [facility] 250 DO Work Phone: 10-19-2021 16:04-0500 Body weight 65.41 kg Chester E Ball Work Phone: [facility] [facility] DO Work Phone: 10-19-2021 16:04-0500 Diastolic blood pressure 76 mm[Hg] Chester E Ball Work Phone: [facility] DO Work Phone: 10-19-2021 16:04-0500 Heart rate 70 /min Chester E Ball Work Phone: [facility] [employer] [facility] DO Work Phone: 10-19-2021 16:04-0500 Systolic blood pressure 110 mm[Hg] Chester E Ball Work Phone: [facility] DO Work Phone: 07-26-2021 14:31-0500 Body height 149.86 cm Chester E Ball Work Phone: [facility] DO Work Phone: 07-26-2021 14:31-0500 Body mass index (BMI) [Ratio] 29.49 kg/m2 Chester E Ball Work Phone: [facility] DO Work Phone: 07-26-2021 14:31-0500 Body surface area Derived from formula 1.61 m2 Chester E Ball Work Phone: [facility] DO Work Phone: 07-26-2021 14:31-0500 Body weight 66.23 kg Chester E Ball Work Phone: [facility] DO Work Phone: 07-26-2021 14:31-0500 Diastolic blood pressure 80 mm[Hg] Chester E Ball Work Phone: [facility] DO Work Phone: 07-26-2021 14:31-0500 Heart rate 70 /min Chester E Ball Work Phone: [facility] DO Work Phone: 07-26-2021 14:31-0500 Systolic blood pressure 124 mm[Hg] Chester E Ball Work Phone: [facility] DO Work Phone: 07-06-2021 15:54-0500 Body height 149.86 cm Chester E Ball Work Phone: [facility] DO Work Phone: 07-06-2021 15:54-0500 Body mass index (BMI) [Ratio] 28.48 kg/m2 Chester E Ball Work Phone: [facility] DO Work Phone: 07-06-2021 15:54-0500 Body surface area Derived from formula 1.59 m2 Chester E Ball Work Phone: [facility] DO Work Phone: 07-06-2021 15:54-0500 Body temperature 97.2 [degF] Chester E Ball Work Phone: [facility] DO Work Phone: 07-06-2021 15:54-0500 Body weight 63.96 kg Chester Hahn Ball Work Phone: [facility] DO Work Phone: 07-06-2021 15:54-0500 Diastolic blood pressure 49 mm[Hg] Chester Hahn Ball Work Phone: [facility] DO Work Phone: 07-06-2021 15:54-0500 Heart rate 73 /min Chester Hahn Ball Work Phone: [facility] DO Work Phone: 07-06-2021 15:54-0500 Systolic blood pressure 95 mm[Hg] Chester Hahn Ball Work Phone: [facility] DO Work Phone: 06-30-2021 00:00-0500 0 1 Chester Hahn Ball Work Phone: [facility] DO Work Phone: Comment on above: [id number] 06-06-2021 15:33-0400 Body height 152.4 cm Chester Hahn Ball Work Phone: [facility] DO Work Phone: 06-06-2021 15:33-0400 Body mass index (BMI) [Ratio] 28.12 kg/m2 Chester Hahn Ball Work Phone: [facility] DO Work Phone: 06-06-2021 15:33-0400 Body surface area Derived from formula 1.62 m2 Chester E Ball Work Phone: [facility] DO Work Phone: 06-06-2021 15:33-0400 Body weight 65.32 kg Chester Hahn Ball Work Phone: [facility] DO Work Phone: 06-06-2021 15:33-0400 Diastolic blood pressure 64 mm[Hg] Chester Hahn Ball Work Phone: [facility] DO Work Phone: 06-06-2021 15:33-0400 Heart rate 110 /min Chester العلي Work Phone: [facility] DO Work Phone: 06-06-2021 15:33-0400 Systolic blood pressure 88 mm[Hg] Chester العلي Work Phone: [facility] DO Work Phone: Encounters Encounter Date Encounter Type Care Provider Facility Start: 01-28-2024 End: 01-28-2024 ambulatory DO Chester العلي Work Phone: [facility] Work Phone: Start: 01-28-2024 End: 01-28-2024 Patient encounter procedure DO Chester العلي Work Phone: [facility] Work Phone: Start: 01-22-2024 End: 01-22-2024 ambulatory [facility] Ambulatory Start: 01-22-2024 End: 01-22-2024 Professional / ancillary services management Chanell Bartlett Cardiology Ecg/Holter [facility] Start: 01-21-2024 Non-patient / Non-visit DO Johnson العلي Work Phone: [facility] Work Phone: Start: 01-18-2024 End: 01-20-2024 Evaluation and management of inpatient DO Chester العلي Work Phone: [facility]-3 [place] [facility] Work Phone: Start: 01-15-2024 End: 01-15-2024 ambulatory DESMOND NORTHEIM Not Available Start: 12-17-2023 End: 12-18-2023 ambulatory Yesica Astudillo MD Facility:[facility] Start: 11-28-2023 End: 11-28-2023 ambulatory [facility] Start: 11-27-2023 End: 11-27-2023 ambulatory DO Chester Ball Work Phone: [facility] Work Phone: Start: 11-27-2023 End: 11-27-2023 Patient encounter procedure DO Chester Ball Work Phone: [facility] Work Phone: Start: 11-22-2023 End: 11-22-2023 Patient encounter procedure DO Chester Ball Work Phone: [facility]-Pacemaker Check Start: 11-22-2023 End: 11-22-2023 ambulatory DO Chester Ball Work Phone: [facility] Work Phone: Start: 11-21-2023 End: 11-21-2023 Patient encounter procedure DO Chester Ball Work Phone: [facility]-MRI Main [place] Work Phone: Start: 11-21-2023 End: 11-21-2023 ambulatory DO Chester Ball Work Phone: [facility] Work Phone: Start: 10-15-2023 End: 10-16-2023 ambulatory Yesica Astudillo MD Facility:[facility] Start: 09-24-2023 End: 09-24-2023 Patient encounter procedure DO Chester Ball Work Phone: [facility]-Pacemaker Check Start: 09-24-2023 End: 09-24-2023 ambulatory DO Chester Ball Work Phone: [facility] Work Phone: Start: 09-19-2023 End: 09-19-2023 Office outpatient visit 25 minutes Debbie Mac MD Work Phone: [facility] Comment on above: Persistent atrial fi brillation (CMS/HCC) (Primary Dx); 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); Chronic diastolic heart failure (CMS/HCC); Essential hypertension, benign; Mixed hyperlipidemia; Pacemaker; Sinus bradycardia; Single vessel coronary artery disease Start: 09-19-2023 End: 09-19-2023 ambulatory [facility] Start: 2023 End: 2023 Patient encounter procedure DO Chester العلي Work Phone: [facility]-Pacemaker Check Start: 2023 End: 2023 ambulatory DO Chester العلي Work Phone: [facility] Work Phone: Start: 08-24-2023 End: 08-24-2023 ambulatory Chester العلي Other [employer] Other Start: 08-24-2023 Telephone encounter Chester العلي [facility] Start: 08-21-2023 End: 08-22-2023 ambulatory [facility] Start: 08-21-2023 End: 08-21-2023 Subsequent hospital visit by physician Chanell Bartlett Echo/Vasc Room 2 [facility] Comment on above: Chronic diastolic he art failure (CMS/HCC); Essential hypertension, benign; Dyspnea, unspecified type Start: 08-19-2023 End: 08-19-2023 ambulatory Sabina Garcia Other [employer] Other Start: 08-19-2023 Patient encounter procedure Sabina Garcia [facility] Start: 08-19-2023 End: 08-19-2023 Patient encounter procedure DO Chester العلي Work Phone: [facility] Work Phone: Start: 07-25-2023 End: 07-25-2023 Patient encounter procedure DO Chester العلي Work Phone: [facility] Work Phone: Start: 06-29-2023 End: 06-29-2023 ambulatory Chester العلي Other [employer] 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); Chronic diastolic heart failure (CMS/HCC); Essential hypertension, benign; Hyperlipidemia, unspecified hyperlipidemia type; Pacemaker; Sinus bradycardia; Anticoagulated; Class 1 obesity due to excess calories without serious comorbidity with body mass index (BMI) of 32.0 to 32.9 in adult; Stage 3a chronic kidney disease (CMS/HCC); Dyspnea, unspecified type Start: 05-25-2023 End: 05-25-2023 ambulatory Chester العلي Other [employer] Other Start: 05-25-2023 Telephone encounter Chester العلي FP [facility] Start: 04-20-2023 Rx Renewal Chester Hahn Bal l Work Phone: [facility] [address] DO Work Phone: Start: 04-18-2023 Rx Renewal Chester E Bal l Work Phone: [facility] [facility] DO Work Phone: Start: 04-12-2023 End: 04-12-2023 ambulatory Chester العلي Other [employer] Other Start: 04-12-2023 Telephone encounter Chester [facility]علي [facility] Start: 04-10-2023 End: 04-10-2023 ambulatory Chester العلي Other [employer] Other Start: 04-10-2023 Telephone encounter Chester العلي [facility] Start: 03-21-2023 End: 03-21-2023 ambulatory Chester العلي Other [employer] Other Start: 03-21-2023 Patient encounter procedure Chester العلي [facility] Start: 03-13-2023 End: 03-13-2023 ambulatory Chester العلي Other [employer] Other Start: 03-13-2023 Telephone encounter Chester العلي [facility] Start: 03-05-2023 Telephone encounter Chester العلي [facility] Start: 03-05-2023 End: 03-05-2023 Admission to same day surgery center DO Chester العلي Work Phone: [facility]-Surgery Center [facility] [place] Start: 03-05-2023 End: 03-05-[address] Chester العلي [facility] Work Phone: Start: 02-26-2023 End: 02-26-2023 Patient encounter procedure DO Chester العلي Work Phone: [facility] Dzn-Xpw-[facility]rmet[facility] Testing Work Phone: Start: 02-26-2023 End: 02-26-2023 ambulatory DO Chester العلي Work Phone: [facility] Work Phone: Start: 02-26-2023 Rx Renewal Chester rosen Work Phone: [facility] [facility] DO Work Phone: Start: 01-25-[address] Chester العلي Facility: Start: 01-25-2023 Office outpatient vi sit 25 minutes Chester العلي Work Phone: [facility] Work Phone: Start: 01-09-[address] Chester العلي Facility:[id number] Start: 01-09-2023 End: 01-09-2023 Admission to same day surgery center DO Chester العلي Work Phone: [facility]-Time Study Observer Work Phone: Start: 01-04-[address] Debbie Mac Facility: Start: 01-03-2023 End: 01-04-[address] CHESTER العلي Facility:H1 Start: 01-03-[address] Debbie Mac Facility: Start: 01-02-2023 End: 01-03-[address] CHESTER العلي Facility:H1 Start: 12-25-2022 Office outpatient ne w 45 minutes Chester العلي Work Phone: [facility] Work Phone: Start: 12-25-[address] Chester العلي Facility:[id number] Start: 12-11-2022 End: 12-11-2022 ambulatory DO Chester العلي Work Phone: [facility] Work Phone: Start: 12-11-2022 End: 12-11-2022 Patient encounter procedure DO Chester العلي Work Phone: [facility]-Pacemaker Check Start: 12-11-[address] Chester العلي Facility:[id number] Start: 11-27-2022 Telephone encounter Chester العلي Jake [facility]علي [facility] Start: 11-27-2022 End: 11-27-2022 Admission to same day surgery center DO Chester العلي Work Phone: [facility]-Surgery Center [facility] [place] Start: 11-27-2022 End: 11-27-2022 ambulatory DO Chester العلي Work Phone: [facility] [employer] Other Start: 11-20-2022 End: 11-20-2022 ambulatory DO Chester العلي Work Phone: [facility] Work Phone: Start: 11-20-2022 End: 11-20-2022 Patient encounter procedure DO Chester العلي Work Phone: [facility] Jos[facility]Ccfpyon[facility] Testing Work Phone: Start: 10-30-2022 Telephone encounter Chester SIMMONS [facility] Start: 10-30-2022 End: 10-30-2022 ambulatory DO Chester العلي Work Phone: [facility] Work Phone: Start: 10-30-2022 End: 10-30-2022 Patient encounter procedure DO Chester العلي Work Phone: [facility]-CT [address] Work Phone: Start: 10-24-2022 End: 10-24-2022 ambulatory Rachel Larios Other [facility] [employer] Other Start: 10-24-2022 Office outpatient vi sit 15 minutes Rachel CRUZ [facility] Start: 10-16-2022 End: 10-17-[address] CHESTER العلي Facility: Start: 10-13-2022 Office outpatient vi sit 25 minutes Chester العلي Work Phone: [facility] 250 DO Work Phone: Start: 10-13-[address] Debbie Mac Facility: Start: 10-10-2022 End: 10-10-2022 ambulatory Chester العلي Other [facility] [employer] Other Start: 10-10-2022 Telephone encounter Chester SIMMONS [facility] Start: 09-27-2022 Patient encounter procedure Chester العلي Work Phone: [facility] 250 DO Work Phone: Start: 09-27-[address] Debbie Mac Facility: Start: 09-24-2022 End: 09-24-2022 ambulatory Chester العلي Other [employer] Other Start: 09-24-2022 Telephone encounter Chester العلي [facility] Start: 09-21-[address] Chester العلي Facility:[id number] Start: 09-20-[address] Chester العلي Facility:[id number] Start: 09-19-[address] Chester العلي Facility:[id number] Start: 09-18-[address] Chester العلي Facility:[id number] Start: 09-17-2022 End: 09-21-2022 Evaluation and management of inpatient DO Chester العلي Work Phone: [facility]-4 [place] Progressive Work Phone: Start: 09-12-2022 End: 09-12-2022 ambulatory Chester العلي Other [employer] Other Start: 09-12-2022 Office outpatient vi sit 25 minutes Chester العلي [facility] Start: 09-11-2022 End: 09-11-2022 ambulatory DO Chester العلي Work Phone: [facility] Work Phone: Start: 09-11-2022 End: 09-11-2022 Patient encounter procedure DO Chester العلي Work Phone: [facility]-Pacemaker Check Start: 09-08-2022 End: 09-08-2022 ambulatory Chester العلي Other [employer] Other Start: 09-08-2022 Telephone encounter Chester العلي IRIS [facility] Start: 09-06-[address] Jimena Smith Facility:[id number] Start: 09-05-[address] Jimena Smith Facility:[id number] Start: 09-04-[address] Jimena Smith Facility:[id number] Start: 09-03-[address] Jimena Smith Facility:[id number] Start: 09-02-[address] Chester العلي Facility:[id number] Start: 09-01-2022 End: 09-06-2022 Evaluation and management of inpatient DO Chester العلي Work Phone: [facility]-4 [place] [facility] Work Phone: Start: 08-25-2022 Telephone encounter Chester العلي Work Phone: [facility] 250 DO Work Phone: Start: 08-24-[address] Debbie Mac Facility: Start: 08-24-2022 Patient encounter procedure Chester العلي Work Phone: [facility] Work Phone: Start: 06-26-2022 Office outpatient vi sit 25 minutes Chester Jovani Tyson Work Phone: [facility] 250 DO Work Phone: Start: 06-26-[address] Debbie Mac Facility: Start: 06-09-2022 End: 06-09-2022 ambulatory DO Chester العلي Work Phone: [facility] Work Phone: Start: 06-09-2022 End: 06-09-2022 Patient encounter procedure DO Chester العلي Work Phone: [facility]-Pacemaker Check Start: 06-09-[address] Chester العلي Facility:[id number] Start: 05-12-2022 End: 05-13-[address] CHESTER العلي Facility:H1 Start: 05-01-2022 Adult health examination Chester العلي Other [facility] [employer] Other Start: 04-27-2022 End: 04-27-2022 ambulatory John Mims Other [employer] Other Start: 04-27-2022 Office outpatient vi sit 25 minutes John Mims [facility] Start: 04-20-2022 End: 04-20-[address] RACHEL LARIOS Facility:H1 Start: 03-27-2022 Rx Renewal Chester rosen Work Phone: [facility] 250 DO Work Phone: Start: 03-16-2022 End: 03-16-2022 ambulatory John Mims Other [facility] [employer] Other Start: 03-16-2022 Telephone encounter John Rob [facility] Start: 03-10-2022 Office outpatient vi sit 25 minutes Chester العلي Work Phone: [facility] 250 DO Work Phone: Start: 03-10-[address] Chester العلي Facility: Start: 03-09-2022 End: 03-09-2022 Patient encounter procedure DO Chester العلي Work Phone: [facility]-Digestive Health Start: 03-09-2022 End: 03-09-2022 Patient encounter procedure DO Chester العلي Work Phone: [facility]-Pacemaker Check Start: 02-28-2022 End: 02-28-2022 ambulatory John Mims Other [facility] [employer] Other Start: 02-28-2022 Office outpatient vi sit 25 minutes John Mims [facility] Start: 02-16-2022 End: 02-16-2022 Patient encounter procedure DO Chester العلي Work Phone: [facility]-XRay [facility] [place] Start: 01-25-2022 End: 01-26-[address] Wolf [facility] Facility:H1 Start: 01-19-2022 End: 01-19-2022 Patient encounter procedure DO Chester العلي Work Phone: [facility]-XRay [facility] Start: 01-11-2022 End: 01-12-[address] CHESTER العلي Facility:H1 Start: 01-03-2022 End: 01-03-2022 Patient encounter procedure DO Chester العلي Work Phone: [facility]-Digestive Health Start: 12-30-2021 End: 12-30-2021 Patient encounter procedure DO Chester العلي Work Phone: [facility]-Pre-Surgical Testing Start: 11-21-2021 End: 11-21-2021 Patient encounter procedure DO Chester العلي Work Phone: [facility]-Pacemaker Check Start: 10-19-2021 Office outpatient vi sit 25 minutes Chester العلي Work Phone: [facility] 250 DO Work Phone: Start: 08-15-2021 Patient encounter procedure Chester العلي Work Phone: [facility] 250 DO Work Phone: Start: 07-26-2021 Rx Renewal Chester Moyer l Work Phone: [facility] 250 DO Work Phone: Start: 07-06-2021 Postop follow up vis it related to original px Chester العلي Work Phone: [facility] 250 DO Work Phone: Start: 06-28-2021 Chart Update Chester Hahn Bal l Work Phone: [facility] [address] [place] Work Phone: Start: 06-26-2021 Chart Update Chester Hahn Bal l Work Phone: [facility] [address] [place] Work Phone: Start: 06-24-2021 Chart Update Chester Hahn Bal l Work Phone: [facility] [address] [place] Work Phone: Start: 06-24-2021 Chart Update Chester Hahn Bal l Work Phone: [facility] [address] [place] Work Phone: Start: 06-23-2021 Chart Update Chester rosen Work Phone: [facility] [facility] [place] Work Phone: Start: 06-23-2021 SURGNONUH, Provider: Debbie Mac, Status: Pen, Time: 10:00 AM Chester العلي Work Phone: [facility] [address] [place] Work Phone: Start: 06-22-2021 Chart Update Chester rosen Work Phone: [facility] [address] [place] Work Phone: Start: 06-13-2021 Telephone encounter Chester العلي Work Phone: [facility] [facility] [place] Work Phone: Start: 06-06-2021 Patient encounter procedure Chester العلي Work Phone: [facility] 250 DO Work Phone: Start: 05-25-2021 Telephone encounter Debbie marina MD Work Phone: [facility] 250 DO Work Phone: Start: 07-26-2020 End: 07-31-2020 Evaluation and management of inpatient CHESTER العلي Facility:[facility] Procedures Date Procedure Procedure Detail Performing Clinician Start: 01-22-2024 Ecg routine ecg w/le ast 12 lds w/i&r Debbie Mac MD Work Phone: Start: 01-18-2024 Plain chest X-ray DO Be cinthia العلي Work Phone: Start: 11-28-2023 ECG 12-LEAD DEBBIE MARINA Start: 11-28-2023 FOLLOW UP IN CARDIOLOGY DEBBIE MAC Start: 11-21-2023 MR lumbar spine wo con DO Chester العلي Work Phone: Start: 09-19-2023 ECG 12-LEAD DEBBIE MARINA Start: 09-19-2023 FOLLOW UP IN CARDIOLOGY DEBBIE MAC Start: 09-19-2023 Ecg routine ecg w/le ast [...] Phone: Start: 03-05-2023 Laparoscopic cholecystectomy DO Chester Ball Work Phone: Start: 01-09-2023 CL [facility] & [...] Start: 09-01-2022 Urine culture DO Benjam in Tyson Work Phone: Start: 09-01-2022 Plain chest X-ray DO Be njamin Tyson Work Phone: Start: 03-09-2022 DH Fibroscan DO Arlette العلي Work Phone: Start: 01-03-2022 Esophageal manometry DO Chester العلي Work Phone: Start: 07-30-2020 MEASUREMENT OF CARDI AC TOTAL ACTIVITY, EXTERNAL APPROACH TANNER SHARON Start: 07-28-2020 INTRODUCTION OF OTHE R GAS INTO RESP TRACT, VIA OPENING JELANI WOO Start: 07-28-2020 Gnosticism of Cardi ac Rhythm, Single SANJUANA CARRERO Start: 07-28-2020 ULTRASONOGRAPHY OF R IGHT AND LEFT HEART, TRANSESOPHAGEAL SANJUANA CARRERO Start: 06-20-2017 Screening for osteoporosis Chester العلي Other Start: 09-13-2016 General examination of patient Chester العلي Other Start: 05-21-2015 Screening mammography B enjamin [facility] Other Appendectomy Chester العلي Work Phone: Depression [...] DTaP/Tdap/Td Vaccines (2 - Td or Tdap) [facility] Start: 07-11-2031 DTaP/Tdap/Td Vaccines (3 - Td or Tdap) DTaP/Tdap/Td Vaccines (3 - Td or Tdap) [facility] Start: 01-18-2025 Echocardiography Echocardiogram [facility] Start: 08-21-2024 Echocardiography Echocardiogram [facility] Start: 04-07-2024 End: 04-07-2024 Patient encounter procedure 04/07/2024 9:45 AM EDT Office Visit [address] [place] [address] Maxwell Stafford MD [address] [facility] [place] [address] [place] [address] [facility] Start: 03-25-2024 End: 03-25-2024 Patient encounter procedure 03/25/2024 2:40 PM EDT Office Visit [place] [id number] [place] [address] Debbie Mac MD [address] [place] [address] [facility] Start: 01-20-2024 [facility] Start: 01-19-2024 [facility] Start: 01-18-2024 Referral to janitorial assistant [facility] Start: 01-18-2024 [facility] Start: 01-18-2024 Hospital admission [facility] Start: 11-28-2023 End: 11-28-2023 Patient encounter procedure 11/28/2023 3:10 PM EDT Office Visit [place] [address] [place] [address] Debbie Mac MD [address] [place] [address] [facility] Start: 09-19-2023 End: 09-19-2023 Patient encounter procedure 09/19/2023 1:00 PM EST Office Visit [facility] [address] [place] [address] Debbie Mac MD [address] [place] [address] [facility] Start: 09-02-2023 Echocardiography Echocardiogram [facility] Start: 07-05-2023 End: 07-05-2023 Patient encounter procedure 07/05/2023 1:30 PM EST Appointment [facility] [address] [place] [address] [facility] Start: 05-31-2023 FUV, Provider: Debbie Mac, Status: Pen, Time: 3:00 PM FUV, Provider: Debbie Mac, Status: Pen, Time: 3:00 PM [facility] Work Phone: Start: 05-31-2023 End: 05-31-2025 Heart Transthoracic Transthoracic Echo (TTE) Complete Echocardiography Routine Chronic diastolic heart failure (CMS/HCC) Essential hypertension, benign Dyspnea, unspecified type Expected: 05/31/2023 (Approximate), Expires: 05/31/2025 [facility] Service Area Work Phone: Comment on above: Expected: 05/31/2023 (Approximate), Expi res: 05/31/2025 Start: 05-09-2023 FUV, Provider: Maxwell Stafford, Status: Pen, Time: 4:00 PM FUV, Provider: Maxwell Stafford, Status: Pen, Time: 4:00 PM [facility] Work Phone: Start: 04-20-2023 COVID-19 Vaccine ( season) COVID-19 Vaccine ( season) [facility] Start: 04-20-2023 Influenza vaccination Influenza Vaccine (#1) [facility] Start: 04-04-2023 FUV, Provider: Maxwell Stafford, Status: Pen, Time: 3:00 PM FUV, Provider: Maxwell Stafford, Status: Pen, Time: 3:00 PM [facility] Work Phone: Start: 03-05-2023 [facility] Start: 03-05-2023 [facility] Start: 02-14-2023 FUV, Provider: Maxwell Stafford, Status: Pen, Time: 1:30 PM FUV, Provider: Maxwell Stafford, Status: Pen, Time: 1:30 PM [facility] Work Phone: Start: 01-09-2023 [facility] Start: 01-04-2023 FUV, Provider: Debbie Mac, Status: Pen, Time: 1:50 PM FUV, Provider: Debbie Mac, Status: Pen, Time: 1:50 PM [facility] DO Work Phone: Start: 11-27-2022 Laparoscopic cholecystectomy OR Cholecystectomy Laparoscopic (Not Applicable) [facility] Start: 11-27-2022 End: 11-27-2022 [facility] Start: 10-13-2022 FUV, Provider: Debbie Mac, Status: Pen, Time: 10:30 AM FUV, Provider: Debbie Mac, Status: Pen, Time: 10:[address] [facility] 250 DO Work Phone: Start: 09-21-2022 [facility] Start: 09-17-2022 Hospital admission [facility] Start: 09-17-2022 Referral to janitorial assistant [facility] Start: 09-17-2022 Bacteria identified in Urine by Culture [facility] Start: 09-06-2022 [facility] Start: 09-05-2022 Blood chemistry [facility] Start: 09-05-2022 [facility] Start: 09-04-2022 Administration of prophylactic treatment [facility] Start: 09-04-2022 Blood chemistry [facility] Start: 09-04-2022 [facility] Start: 09-03-2022 Blood chemistry [facility] Start: 09-03-2022 [facility] Start: 09-02-2022 Blood chemistry [facility] Start: 09-02-2022 Brain natriuretic peptide measurement [facility] Start: 09-02-2022 Magnesium measurement [facility] Start: 09-02-2022 [facility] Start: 09-01-2022 Referral to janitorial assistant [facility] Start: 09-01-2022 Hospital admission [facility] Start: 09-01-2022 [facility] Start: 09-01-2022 Bacteria identified in Urine by Culture Urine Culture [facility] Start: 07-12-2022 FUV, Provider: Debbie Mac, Status: Pen, Time: 2:40 PM FUV, Provider: Debbie Mac, Status: Pen, Time: 2:40 PM [facility] 250 DO Work Phone: Start: 03-09-[address] [facility] Work Phone: Start: 02-22-2022 FUV, Provider: Debbie Mac, Status: Pen, Time: 2:50 PM FUV, Provider: Debbie Mac, Status: Pen, Time: 2:50 PM -[facility] 250 DO Work Phone: Start: 01-08-2022 COVID-19 Vaccine (3 - Pfizer series) COVID-19 Vaccine (3 - Pfizer series) [facility] Start: 01-03-[address] [facility] Work Phone: Start: 10-19-2021 FUV, Provider: Debbie Mac, Status: Pen, Time: 3:30 PM FUV, Provider: Debbie Mac, Status: Pen, Time: 3:30 PM [facility] 250 DO Work Phone: Start: 09-12-2021 FUV, Provider: Debbie Mac, Status: Pen, Time: 2:50 PM FUV, Provider: Debbie Mac, Status: Pen, Time: 2:50 PM -[facility] 250 DO Work Phone: Start: 12-07-2021 FUV, Provider: Debbie Mac, Status: Pen, Time: 2:00 PM [facility] 250 DO Work Phone: Start: 06-23-2021 SUR[facility], Provider: Debbie Mac, Status: Pen, Time: 10:00 AM [facility]: Debbie Mac, Status: Pen, Time: 10:[address] [facility] 250A [place] Work Phone: Start: 11-08-2019 Pneumococcal Vaccine: 65+ Years (2 - PCV) Pneumococcal Vaccine: 65+ Years (2 - PCV) [facility] Start: 10-31-2012 Zoster Vaccines (2 of 3) Zoster Vaccines (2 of 3) [facility] Start: 2002 Hepatitis B Vaccines (1 of 3 - Risk 3-dose series) Hepatitis B Vaccines (1 of 3 - Risk 3-dose series) [facility] Start: 2002 RSV patients and/or patients aged 60+ years (1 - 1-dose 60+ series) RSV patients and/or patients aged 60+ years (1 - 1-dose 60+ series) [facility] Start: 1961 Hepatitis A Vaccines (1 of 2 - Risk 2-dose series) Hepatitis A Vaccines (1 of 2 - Risk 2-dose series) [facility] Start: 1960 Diabetes mellitus screening Diabetes Screening [facility] Start: 1942 Creatinine measurement Creatinine Level [facility] Start: 1942 Lipid panel Lipid Panel [facility] Start: 1942 Medicare Annual Wellness Visit Medicare Annual Wellness Visit (AWV) [facility] Start: 1942 Potassium measurement Potassium Level [facility] Start: 1942 Screening for osteoporosis Bone Density Scan [facility] CT Abdomen and Pelvi s W contrast IV [facility] Hepatitis A virus antibody, IgM type [facility] Work Phone: Hepatitis B core ant ibody measurement, IgM type [facility] Work Phone: Hepatitis B virus vieira rface Ag [Presence] in Serum or Plasma by Immunoassay [facility] Work Phone: Hepatitis C virus Ab Signal/Cutoff in Serum or Plasma by Immunoassay [facility] Work Phone: Hepatitis C virus RN A [log units/volume] (viral load) in Serum or Plasma by GUILLERMO with probe detection [facility] Work Phone: Hepatitis C virus RN A [Units/volume] (viral load) in Serum or Plasma by GUILLERMO with probe detection [facility] Work Phone: Homogenous nuclear A b pattern [Titer] in Serum [facility] Work Phone: Nuclear Ab [Titer] i n Serum [facility] Work Phone: Patient Education [facility] Work Phone: Patient referral [facility] Work Phone: End: 08-21-2023 [facility] Work Phone: Comment on above: Once for 1 Occurrences starting 08/21/19 24 until 08/21/2023 [facility] Immunizations Immunization Date Immunization Notes Care Provider Rola priest 06-29-2023 influenza, high dose seasonal, preservative-free Chester العلي Other [facility] [employer] Other 06-29-2023 influenza virus vaccine, unspecified formulation DO Chester العلي Work Phone: [facility] 05-26-2022 Fluad Quadrivalent 0 .5 ML Intramuscular Prefilled Syringe Chester العلي Work Phone: [facility] 250 DO Work Phone: 05-26-2022 influenza virus vaccine, split virus (incl. purified surface antigen) Chester العلي Other [facility] [employer] Other 05-26-2022 influenza virus vaccine, unspecified formulation Debbie Mac MD Work Phone: [facility] 11-13-2021 Comirnaty 30 MCG/0.3 ML Intramuscular Suspension Chester العلي Work Phone: [facility] 250 DO Work Phone: 11-13-2021 COVID-19 mRNA, Comirnaty (Pfizer) DO Chester العلي Work Phone: [facility] 07-11-2021 tetanus toxoid, redu maranda diphtheria toxoid, and acellular pertussis vaccine, adsorbed Chester العلي Work Phone: [facility] 06-14-2021 influenza virus vaccine, split virus (incl. purified surface antigen) Chester العلي Other [facility] [employer] Other 06-14-2021 influenza virus vaccine, unspecified formulation DO Chester العلي Work Phone: [facility] 10-07-2020 Pfizer-BioNTech COVID-19 Vacc 30 MCG/0.3ML Intramuscular Suspension Chester العلي Work Phone: [facility] Comment on above: Series: 09-17-2020 COVID-19 Vaccine Moderna - Documentation Purposes Only Chester العلي Other [facility] 09-17-2020 Pfizer-BioNTech COVID-19 Vacc 30 MCG/0.3ML Intramuscular Suspension Chester العلي Work Phone: [facility] Comment on above: Series: 05-20-2020 influenza, seasonal, injectable Chester العلي Work Phone: [facility] 250 DO Work Phone: Comment on above: Series: 05-05-2020 Flu Vaccine - Adult DO George العلي Work Phone: [facility] 05-05-2020 influenza virus vaccine, split virus (incl. purified surface antigen) Chester العلي Other [facility] Other 05-05-2020 influenza virus vaccine, unspecified formulation DO Chester العلي Work Phone: [facility] 05-05-2020 influenza, seasonal, injectable Chester E Tyson Work Phone: [facility] 05-20-2019 influenza, high dose seasonal, preservative-free Chester E Tyson [facility] DO Work Phone: 11-07-2018 pneumococcal polysaccharide vaccine, 23 valent Chester E [facility] Work Phone[facility] DO Work Phone: 06-12-2018 influenza virus vaccine, split virus (incl. purified surface antigen) Chester العلي Other [facility] [employer] Other 06-12-2018 influenza virus vaccine, unspecified formulation DO Chester العلي Work Phone: [facility] 06-12-2018 Seasonal trivalent influenza vaccine, adjuvanted, preservative free Chester العلي [facility] DO Work Phone: 05-20-2018 influenza, injectabl e, quadrivalent, preservative free Chester [facility]لي [facility] DO Work Phone: 06-21-2017 diphtheria, tetanus toxoids and acellular pertussis vaccine, unspecified formulation Chester العلي Other [facility] 07-06-2016 pneumococcal conjuga te vaccine, 13 valent Chester العلي Other [facility] 07-06-2016 pneumococcal Conjuga te, unspecified formulation; Translations: [Need for prophylactic vaccination against Streptococcus pneumoniae (pneumococcus)] Chester Tyson Other [facility] [employer] Other 03-20-2015 pneumococcal polysaccharide vaccine, 23 valent Chester Hahn [facility] [facility] Work Phone: Comment on above: Series: 03-20-2014 influenza virus vaccine, unspecified formulation Chester العلي Work Phone: [facility] Work Phone: 06-24-2013 tetanus and diphther ia toxoids, adsorbed, preservative free, for adult use (5 Lf of tetanus toxoid and 2 Lf of diphtheria toxoid) Chester Tyson Other [facility] 09-05-2012 zoster vaccine, live Benjami saad العلي Work Phone[facility] DO Work Phone: 07-29-2008 pneumococcal polysaccharide vaccine, 23 valent Chester العلي Other [facility] Payers Date Payer Category Payer Medicare [id number] 2023 Self-pay [id number] 2022 Unknown 2020 Medicare [id number] 2009 Unknown [id number] 1959 Private Health Insurance [id number] 1942 Unknown [id number] 2.16.8 40.1.890867.3.579.2.647 1942 Unknown [id number] 2.16. 840.1.319384.3.579.2.356 1942 Unknown [id number] 2.16.84 0.1.529488.3.579.2.593 1942 Unknown [id number] 2.16.84 0.1.737053.3.579.2.593 1942 Unknown [id number] 2.16.84 0.1.297067.3.579.2.593 1942 Unknown [id number] 2.16.84 0.1.887517.3.579.2.593 1942 Unknown [id number] 2.16.84 0.1.877587.3.579.2.593 1942 Unknown [id number] 2.16.84 0.1.508319.3.579.2.593 1942 Unknown [id number] 2.16.84 0.1.931528.3.579.2.593 1942 Unknown [id number] 2.16. 840.1.673741.3.579.2.356 1942 Unknown [id number] 2.16. 840.1.512383.3.579.2.356 1942 Unknown [id number] 2.16. 840.1.473769.3.579.2.356 1942 Unknown [id number] 2.16. 840.1.218292.3.579.2.356 1942 Unknown [id number] 2.16. 840.1.286872.3.579.2.356 1942 Unknown [id number] 2.16. 840.1.323026.3.579.2.356 1942 Unknown [id number] 2.16. 840.1.140143.3.579.2.356 1942 Unknown [id number] 2.16. 840.1.867913.3.579.2.356 1942 Unknown [id number] 2.16. 840.1.283934.3.579.2.356 1942 Unknown [id number] 2.16. 840.1.963280.3.579.2.356 1942 Unknown [id number] 2.16. 840.1.189149.3.579.2.356 1942 Unknown [id number] 2.16. 840.1.631139.3.579.2.356 1942 Unknown [id number] 2.16. 840.1.376197.3.579.2.356 1942 Unknown [id number] 2.16. 840.1.029465.3.579.2.356 1942 Unknown [id number] 2.16. 840.1.975584.3.579.2.356 1942 Unknown [id number] 2.16. 840.1.268149.3.579.2.356 1942 Unknown [id number] 2.16. 840.1.155317.3.579.2.356 1942 Unknown [id number] 2.16. 840.1.236900.3.579.2.356 1942 Unknown [id number] 2.16. 840.1.373847.3.579.2.356 1942 Unknown [id number] 2.16. 840.1.263271.3.579.2.356 1942 Unknown [id number] 2.16. 840.1.476678.3.579.2.356 1942 Unknown [id number] 2.16. 840.1.124582.3.579.2.356 1942 Unknown [id number] 2.16. 840.1.374294.3.579.2.356 1942 Unknown [id number] 2.16. 840.1.199118.3.579.2.356 1942 Unknown [id number] 2.16. 840.1.716499.3.579.2.356 1942 Unknown [id number] 2.16.84 0.1.983010.3.579.2.1246 1942 Unknown [id number] 2.16. 840.1.239942.3.579.2.196 1942 Unknown [id number] 2.16. 840.1.309074.3.579.2.196 1942 Unknown [id number] 2.16.84 0.1.039584.3.579.2.1259 1942 Unknown [id number] 2.16.8 40.1.977436.3.579.2.1244 1942 Unknown [id number] 2.16.8 40.1.435823.3.579.2.1244 1942 Unknown [id number] 2.16.8 40.1.360846.3.579.2.1244 1942 Unknown [id number] 2.16.8 40.1.874489.3.579.2.1244 Medicare [id number] Medicare Medicare [id number] Private Health Insurance [id number] Unknown [id number] 2.16.8 40.1.246897.3.579.2.531 Unknown [id number] 2.16.8 40.1.667669.3.579.2.531 Unknown [id number] 2.16.8 40.1.898025.3.579.2.531 Unknown [id number] 2.16.8 40.1.187075.3.579.2.531 Unknown [id number] 2.16.8 40.1.803747.3.579.2.531 Unknown [id number] 2.16.8 40.1.869470.3.579.2.531 Unknown [id number] 2.16.8 40.1.978812.3.579.2.531 Unknown [id number] 2.16.8 40.1.502440.3.579.2.531 Social History Date Type Detail Facility Start: 05-31-2023 End: 11-28-2023 No alcohol use No alcohol use -[facility] 250 DO Work Phone: Start: 08-22-2021 End: 01-19-2024 Tobacco smoking status NHIS Never smoked tobacco (finding) [facility] Start: 1940 Sex Assigned At Female F [facility] Start: 05-31-2023 End: 11-28-2023 Sex Assigned At [facility] [employer] Other Start: 05-31-2023 Tobacco use and exposure Smokeless tobacco non-user [facility] Work Phone: Start: 05-31-2023 End: 01-22-2024 Alcohol intake Lifetime non-drinker (finding) [facility] Work Phone: Start: 1940 Sex Assigned At Not on file [facility] Work Phone: Start: 05-21-2023 End: 01-22-2024 Exposure to SARS-CoV-2 (event) Not sure [facility] Medical Equipment Procedure Code Equipment Code Equipment Origin al Text Equipment Identifier Dates Insertion, pacemaker Endocardial pacing lead [id number] FDA Start: 06-29-2021 Insertion, pacemaker Endocardial pacing lead [id number] FDA Start: 06-29-2021 Insertion, pacemaker Dual-chambe r implantable pacemaker, rate-responsive [id number] FDA Start: 06-29-2021 Cystoscopy, with ureteral calculus manipulation and stent placement Polymeric ureteral stent [id number] FDA Start: 07-01-2021 Goals Date Patient Goal Desired Activity /State Functional Status Date Assessment Result Facility 01-20-2024 Functional status Patient at Baseline [facility] Work Phone: 09-21-2022 Functional status Patient at Baseline [facility] Work Phone: 09-06-2022 Functional status Patient at Baseline [facility] Work Phone: 09-02-2022 Functional status Bathing Patient at [facility] line [facility] Work Phone: Mental Status Date Assessment Result Facility 01-20-2024 Cognitive function Cognitive Sta tus Patient at Baseline [facility] Work Phone: 09-21-2022 Cognitive function Cognitive Sta tus Patient at Baseline [facility] Work Phone: 09-06-2022 Cognitive function Cognitive Sta tus Patient at Baseline [facility] Work Phone: Clinical Notes 06-21-2021 to 01-22-2024 Millie Sneed LPN - 01/22/2024 11:30 AM EDT Note Date & Type Note Facility 01-22-2024 History of Present illness Narrative Patient here for at EKG visit ordered by Dr. Mac due to a-fib. Dr. Dee in suite. Patient here due to feeling out of rhythm. Medication list Updated with list . Some cardiac complaints, shortness of breath, weakness and fatigue. Discussed with Vannesa Davidson RN prior to discharge. To Dr. Mac for review. Vitals: 01/22/24 1246 BP: (!) 134/94 BP Location: Right arm Patient Position: Sitting Pulse: 71 Weight: 69.4 kg (153 lb) Height: 1.499 m (4' 11 ) documented in this encounter [facility] Work Phone: 01-20-2024 Progress note Note Date/Time January 20, 2024 1:46p m [facility] [address] [place] [address] Cardiology Progress Note Signed Patient: Lesa Golden MR#: [id number] : 1940 Acct:[id number] Age/Sex: 83 / F Adm Date: 4 Loc: 3T Room: [address] [place] [address] Type: ADM IN Attending Dr: Izzy Capps MD Copies to: ~ Date of Service: 01/20/2024 Subjective Principal diagnosis: Atrial fibrillation, pulmonary edema Interval history: Patient improved. She has converted to sinus rhythm and is in intermittently atrial paced rhythm. No atrial fibrillation or flutter. She responded favorably to diuretics and no longer has dyspnea. Her chronic nausea persists. Exam Physical Exam Vital Signs: Temp Pulse Resp BP Pulse Ox O2 Del Method 97.9 F 78 18 128/86 96 Room Air 01/20/24 09:23 01/20/24 12:00 01/20/24 12:00 01/20/24 12:00 01/20/24 12:00 01/20/24 12:00 HEENT Head: normal to inspection Ears: hearing grossly normal bilaterally Nose: external nose normal and nares normal Face and sinus: normal facial exam Mouth: oral mucosae normal and tongue normal Eyes Conjunctivae: conjunctivae normal Sclera: sclerae normal Neck Neck: normal visual inspection Carotids: normal carotid upstroke Lymphatic: no lymphadenopathy noted Chest Chest palpation & inspection: normal inspection of the chest Resp Effort & Inspection: normal respiratory effort Auscultation: clear to auscultation bilaterally Cardio Rate: regular rate Rhythm: regular rhythm Heart Sounds: S1 normal and S2 normal GI Inspection: normal to inspection Palpation: soft Skin General: no rashes or lesions noted Neuro General: patient alert, patient awake and patient oriented x3 Cognition: normal cognition Motor: muscle tone normal throughout Sensory Exam: no sensory deficits noted Objective Labs 01/18/24 15:40 01/18/24 16:34 A&P - Cardiology (1) Atrial fibrillation with RVR: Assessment/Problem Details: Restored to sinus rhythm with intensified sotalol therapy. In doing so we have reduced diltiazem because I believe it is not required to be at a high dose Code(s): I48.91 - Unspecified atrial fibrillation (2) Chronic heart failure with preserved ejection fraction (HFpEF): Assessment/Problem Details: Symptoms of mild pulmonary vascular congestion most likely due to persistent atrial fibrillation with rapid ventricular response. Resolved with diuresis andrestoration of sinus rhythm Code(s): I50.32 - Chronic diastolic (congestive) heart failure Plan Continue higher dose sotalol 120 mg twice daily. Reduce diltiazem to 120 mg a day. Continue anticoagulant therapy. Low-dose furosemide 20 mg a day. Patient appears suitable for discharge on this regimen Documented By: Christopher Richardson MD 8 Signed By: <Electronically signed by MD Christopher Richardson> 01/20/[address] [facility] Work Phone: 1(257) 584-859206-01-2024 Progress note Author Izzy Capps [facility] January 19, 2024 6:48pm Note Date/Time January 19, 2024 5:02p m [facility] [address] [place] [address] Hospitalist Progress Note Signed Patient: Lesa Golden MR#: [id number] : 1940 Acct:[id number] Age/Sex: 83 / F Adm Date: 4 Loc: Room: [address] [place] [address] Type: ADM IN Attending Dr: Izzy Capps MD Copies to: ~ Date of Service: 01/19/2024 Subjective Subjective Narrative: 83F with PMH of HTN, HLD, PAF (on Xarelto), SSS (s/p pacemaker), HFpEF, CKD, GERD, Fibromyalgia, Depression, chronic back pain, RLS who presented with SOB and admitted for the evaluation and treatment of Afib RVR LAssessment And Plan Paroxysmal Afib with RVR rate controlled , off Cardizem drip , SOB is better no chest pain the patient was found to have Afib RVR in the ED with heart rate up to and was Started on Cardizem Drip * No troponin elevation * TSH wnl * EKG ED shows Afib @ 124 bpm without significant acute changes * CXR ED no acute cardiopulmonary abnormality, chronic changes * No significant electrolyte Abnormality; Mg 1.9 Oral Cardizem Agree with increasing Sotalol dose Agree with Lasix IV Home Xarelto Telemetry Cardiology recommendation appreciated INTERVAL HPI:?As Above, Pt resting in bed. feeling little better. Denies any abdominal pain Chronic diseases:?Unless mentioned Above, Essential home medications have been continued.? DVT Px:?Addressed Disposition:?To be determined Plan of care Discussed with:?the medical team, the patient Exam Physical Exam Vital Signs: Temp Pulse Resp BP Pulse Ox O2 Del Method 36.6 C 130 H 20 105/69 96 Room Air 01/19/24 08:00 01/19/24 15:58 01/19/24 15:58 01/19/24 15:58 01/19/24 15:58 01/19/24 15:58 Narrative: GEN: Pleasant, Cooperative, Not in acute distress. LUNGS: CTA CV: S1S2 nl, ? M/R/G ABD: Soft, ND, NT, + BS, EXT: No edema in LE bilaterally, no calf muscle tenderness. NEURO: ? FND PSYCH: nl affect, AOx3. Objective Lab Results 01/18/24 15:40 01/18/24 16:34 Meds Allergies and Active Meds Allergies Sulfa (Sulfonamide Antibiotics) Allergy (Mild, Verified 01/18/24 15:54) Itching fentanyl Allergy (Unknown, Verified 01/18/24 15:54) Unknown Reaction Active Meds: Active Medications Generic Name Dose Route Start Last Admin Trade Name Freq PRN Reason Stop Dose Admin Acetaminophen 650 mg 01/18/24 20:42 01/19/24 03:43 Acetaminophen 325 Mg Tablet PO 01/17/25 20:41 650 mg Q6H PRN Administration Pain 1-5 or fever Atorvastatin Calcium 40 mg 01/18/24 22:00 01/18/24 22:21 Atorvastatin 40 Mg Tablet PO 01/17/25 21:59 40 mg QHS KWAN Administration Diltiazem HCl 120 mg 01/20/24 09:00 Diltiazem Cd.24hr 120 Mg Cap.Er.24h PO 01/19/25 08:59 DAILY KWAN Escitalopram Oxalate 10 mg 01/19/24 22:00 Escitalopram 10 Mg Tablet PO 01/18/25 21:59 HS KWAN Famotidine 20 mg 01/19/24 12:10 01/19/24 13:10 Famotidine 20 Mg Tablet PO 01/18/25 12:09 20 mg BID KWAN Administration Furosemide 40 mg 01/19/24 12:10 01/19/24 16:12 Furosemide 40 Mg/4 Ml Vial IV-PUSH 01/18/25 12:09 40 mg BID@0800,1600 KWAN Administration Sodium Chloride 1,000 mls @ 75 mls/hr 01/18/24 15:30 01/19/24 04:39 0.9% Sodium Chloride 1,000 Ml IV 01/17/25 15:29 75 mls/hr .[id number] KWAN Administration Diltiazem HCl 100 mg in 100 mls @ 5 mls/hr 01/18/24 15:30 01/19/24 03:40 Cardizem IV 01/17/25 15:29 5 mg/hr .Q20H KWAN 5 mls/hr Administration Protocol 5 MG/HR Magnesium Sulfate 2 gm in 50 mls @ 25 mls/hr 01/18/24 20:42 Magnesium Sulf 2gm-*Swfi* IV 01/17/25 20:41 DAILY PRN Hypomagnesemia <1.7 Mg/dl Oxycodone/Acetaminophen 1 tab 01/18/24 20:42 Oxycodone/Acetaminophen 5-325 Mg Tablet PO Q6H PRN Pain Scale 6 - 10 Potassium Chloride 40 meq 01/18/24 20:42 Potassium Chloride Er 20 Meq Tab.Er.Prt PO 01/17/25 20:41 DAILY PRN Hypokalemia Rivaroxaban 15 mg 01/18/24 22:00 01/18/24 22:21 Rivaroxaban 15 Mg Tablet PO 01/17/25 21:59 15 mg HS KWAN Administration Ropinirole HCl 1 mg 01/18/24 22:00 01/18/24 22:21 Ropinirole 1 Mg Tablet PO 01/17/25 21:59 1 mg QHS KWAN Administration Sodium Chloride 0 ml 01/18/24 15:07 01/18/24 20:45 Sodium Chloride 0.9 % 10 Ml Syringe IV-PUSH 01/17/25 15:06 10 ml PRN PRN Administration Flush Sotalol HCl 120 mg 01/19/24 21:00 Sotalol 120 Mg Tablet PO 01/18/25 20:59 BID KWAN A&P - Hospitalist Assessment/Plan (1) Atrial fibrillation with RVR: (2) Chronic heart failure with preserved ejection fraction (HFpEF): Plan Documented By: Izzy Capps MD 01/19/24 [id number] Signed By: <Electronically signed by Izzy Capps MD> 01/19/[id number] [facility] Work Phone: 1(927) 453-199006-01-2024 Consult note Author Christopher Richardson [facility] January 19, 2024 12:11pm Note Date/Time January 19, 2024 12:08 pm [facility] [address] [place] [address] Cardiology Consult Note Signed Patient: Lesa Golden MR#: [id number] : 1940 Acct:[id number] Age/Sex: 83 / F Adm Date: 4 Loc: Room: [address] [place] [address] Type: ADM IN Attending Dr: Izzy Capps MD Copies to: DO Izzy Carias MD William Patrick McGuinn, MD~ Cardiology HPI History of Present Illness Consult Date: 01/19/24 Reason for Consult: Atrial fibrillation with a rapid ventricular response HPI: Ms. Golden is a 83 year old female seen for the above She is an individual with a previous history of atrial fibrillation. She has been treated with low-dose sotalol and incrementally increased diltiazem. She states she feels like she has been out of rhythm for about a week. She came to the hospital and was started on diltiazem drip and appears to have converted. She states has been having symptoms off and on for a while. It sounds like prolonged episodes and/or paroxysms of atrial fibrillation with associated lightheadedness dizziness activity intolerance easy fatigue and shortness of breath. She states she is worried about coronary disease but despite her presentation yesterday with sustained atrial fibrillation and a rapid ventricular spots she had no manifestations of myocardial ischemia because of this I am not very suspicious of flow-limiting coronary disease. Also uncertain is the presence or absence of cardiomyopathy. She has not been evaluated recently with an echocardiogram and because of this will be done today. I am concerned that her recurring paroxysms of A-fib could have resultedin cardiomyopathy due to atrial fibrillation with persistently high heart rates. We discussed this in great detail. She is also complaining of some shortness ofbreath even now. Diuretics will be implemented. It also sounds like she has some GERD and this will be treated as well. Review of Systems Review of Systems All other systems reviewed & are negative unless noted below or in HPI Constitutional Constitutional: Reports system reviewed and no additional complaints, except as documented Eyes Eyes: Reports system reviewed and no additional complaints, except as documented ENT Ears, Nose, Mouth, and Throat: Reports system reviewed and no additional complaints, except as documented Cardiovascular Cardiovascular: Reports as per HPI Respiratory Respiratory: Reports system reviewed and no additional complaints, except as documented Gastrointestinal Gastrointestinal: Reports system reviewed and no additional complaints, except as documented Genitourinary Genitourinary: Reports system reviewed and no [...] and no additional complaints, except as documented [facility] Medical History Chronic heart failure with preserved ejection fraction (HFpEF) Sick sinus syndrome Fibromyalgia Stage 3a chronic kidney disease Pulmonary nodule CT: no nodules detected - 10/2022 Primary hypertension Paroxysmal atrial fibrillation Osteopenia of lumbar spine Obstructive sleep apnea Mild episode of recurrent major depressive disorder Lumbar spondylosis Large hiatal hernia Hypercholesterolemia History of esophageal stricture Cirrhosis Bladder incontinence Normal esophagogastroduodenoscopy (EGD) Hernia Depression Problem List clean-up per request of Phys. EHR Cmte Fibromyalgia Problem List clean-up per request of Phys. EHR Cmte Arthritis back and neck Problem List clean-up per request of Phys. EHR Cmte Hypertension Problem List clean-up per request of Phys. EHR [facility] History of cardiac pacemaker in situ Presbyesophagus Hiatal hernia Restless leg Hyperlipemia Problem List clean-up per request of Phys. EHR Cmte CHF (congestive heart failure) Problem List clean-up per request of Phys. EHR Cmte Kidney stones removal of kidney stone R flank in 2021 Problem List clean-up per request of Phys. EHR Cmte Pacemaker Problem List clean-up per request of Phys. EHR Cmte Atrial fibrillation, persistent Problem List clean-up per request of Phys. EHR Cmte COVID-19 2019 Problem List clean-up per request of Phys. EHR Cmte Atrial fibrillation with RVR Problem List clean-up per request of Phys. EHR Cmte Hernia of abdominal wall Problem List clean-up per request of Phys. EHR [facility] Surgical History History of cholecystectomy 2022 History of colonoscopy 2011 History of cardiac catheterization Problem List clean-up per request of Phys. EHR [facility] H/O eye surgery right eye Problem List clean-up per request of Phys. EHR [facility] History of cataract surgery marybeth eye Problem List clean-up per request of Phys. EHR [facility] History of appendectomy Problem List clean-up per request of Phys. EHR Cmte History of tonsillectomy Problem List clean-up per request of Phys. EHR [facility] H/O foot surgery left Problem List clean-up per request of Phys. EHR [facility] History of hysterectomy Problem List clean-up per request of Phys. EHR [facility] Family History Father Heart & renal disease, hypertensive, with heart fail/chron kidney dis Depression Sister Heart disease Mother Brain tumor Father Mother Social History Smoking Status: Never smoker Substance Use Type: None Substance Abuse Comment: etoh occasional Social History Comments: independent living at the [facility] Medications and Allergies Allergies Sulfa (Sulfonamide Antibiotics) Allergy (Mild, Verified 01/18/24 15:54) Itching fentanyl Allergy (Unknown, Verified 01/18/24 15:54) Unknown Reaction Home Medications rivaroxaban 15 mg tablet (Xarelto) 15 mg PO HS 12/05/21 [History Confirmed 01/18/24] sotalol 80 mg tablet 80 mg PO BID 30 days #60 tabs 09/21/22 [Rx Confirmed 01/18/24] atorvastatin 40 mg tablet 40 mg PO QHS 11/24/23 [History Confirmed 01/18/24] diltiazem HCl 180 mg capsule,extended release 24 hr 180 mg PO DAILY 30 days #30 caps 11/29/23 [Rx Confirmed 01/18/24] calcium carbonate (Calcium 600) 600 mg PO DAILY 01/18/24 [History Confirmed 01/18/24] ropinirole 1 mg tablet 1 mg PO QHS 01/18/24 [History Confirmed 01/18/24] vitamin A 2,500 unit-vit C 100 mg-biotin 2,500 snn-pdup-aksbcv capsule (Anrm-Njuq-Xjqv (vit A,Q-ywbqdo-Da-Cu)) 1 cap PO DAILY 01/18/24 [History Confirmed 01/18/24] escitalopram oxalate 10 mg tablet 10 mg PO HS 01/19/24 [History Confirmed 01/19/24] Exam Physical Exam Vital Signs: Temp Pulse Resp BP Pulse Ox O2 Del Method 98 F 83 15 115/69 95 Room Air 01/19/24 08:00 01/19/24 08:00 01/19/24 08:00 01/19/24 08:00 01/19/24 08:00 01/19/24 08:00 HEENT Head: normal to inspection Ears: hearing grossly normal bilaterally Nose: external nose normal and nares normal Face and sinus: normal facial exam Mouth: oral mucosae normal and tongue normal Eyes Conjunctivae: conjunctivae normal Sclera: sclerae normal Neck Neck: normal visual inspection Carotids: normal carotid upstroke Lymphatic: no lymphadenopathy noted Chest Chest palpation & inspection: normal inspection of the chest Resp Effort & Inspection: normal respiratory effort Auscultation: clear to auscultation bilaterally Cardio Rate: regular rate Rhythm: regular rhythm Heart Sounds: S1 normal and S2 normal GI Inspection: normal to inspection Palpation: soft Skin General: no rashes or lesions noted Neuro General: patient alert, patient awake and patient oriented x3 Cognition: normal cognition Motor: muscle tone normal throughout Sensory Exam: no sensory deficits noted Results - Cardiology Labs 01/18/24 15:40 01/18/24 16:34 Lab results: Cardiac Enzymes 01/18/24 01/18/24 Range/Units 15:40 16:34 AST 17 (13-39) U/L Total Creatine Kinase 31 (30-223) U/L CBC 01/18/24 Range/Units 15:40 RBC 4.96 (3.60-5.00) X10E6/uL Hgb 15.5 H (11.8-15.4) g/dL Hct 45.9 (34.0-46.4) % Plt Count 205 (150-450) x10E3/uL Neut # (Auto) 8.5 H (1.8-7.7) x10E3/uL Lymph # (Auto) 1.0 (1.00-4.8) x10E3/uL Hale # (Auto) 0.8 (0.0-0.8) x10E3/uL Eos # (Auto) 0.1 (0.0-0.45) x10E3/uL Baso # (Auto) 0.1 (0.0-0.2) x10E3/uL Comprehensive Metabolic Panel 01/18/24 Range/Units 16:34 Sodium 139 (136-145) mmol/L Potassium 4.1 (3.5-5.1) mmol/L Chloride 108 H (98-107) mmol/L Carbon Dioxide 23.4 (21.0-31.0) mmol/L BUN 29 H (7-25) mg/dL Creatinine 0.96 (0.60-1.20) mg/dL Glucose 102 H (70-100) mg/dL Calcium 9.2 (8.6-10.3) mg/dL AST 17 (13-39) U/L ALT 29 (7-52) U/L Alkaline Phosphatase 63 (34-104) U/L Total Protein 6.0 L (6.4-8.9) gm/dL Albumin 3.7 (3.5-5.7) gm/dL Intake and Output 01/18/24 01/19/24 01/19/24 23:59 07:59 15:59 Intake Total 1300 / 1300 Balance 1300 / 1300 Intake: IV 1100 / 1100 Sodium Chloride 0.9% 1,000 ml 1 1000 / 1000 ,000 ml @ 75 mls/hr IV .[id number] [facility] Rx#:[id number] dilTIAZem 100 MG -*NaCl* 100 mg 100 / 100 In 100 ml @ 5 MG/HR 5 mls/hr IV .Q20H [facility] Rx#:[id number] Oral 200 / 200 Other: # Voids 1 # Unmeasured Voids 1 # Bowel Movements 0 Weight 69.9 kg 69.7 kg Date of Last Bowel Movement 01/18/24 01/18/24 Patient Weight 01/19/24 23:59 Weight 69.7 kg Lab 01/18/24 15:40 PT 16.8 H INR 1.5 APTT 31.3 A&P - Cardiology (1) Atrial fibrillation with RVR: Assessment/Problem Details: Symptomatic. Believe the mosque of maintenance of sinus rhythm is of paramount importance and because of this I will intensify her antiarrhythmic strategy. Accordingly we will follow EKG daily. Code(s): I48.91 - Unspecified atrial fibrillation (2) Chronic heart failure with preserved ejection fraction (HFpEF): Assessment/Problem Details: No overt manifestations of heart failure at the moment but some of her symptoms could be on the basis of atrial fibrillation causing heart failure with preserved ejection fraction. Because of this we will implement diuretic therapy. Code(s): I50.32 - Chronic diastolic (congestive) heart failure (3) Stage 3a chronic kidney disease: Assessment/Problem Details: BUN and creatinine appear normal. It is unclear to me whether she really has advanced renal insufficiency. I note that she is on a low-dose of Xarelto. Fornow we will not increase but will calculate GFR and decide on dosing. Code(s): N18.31 - Chronic kidney disease, stage 3a Plan Intensify sotalol therapy to 120 mg twice daily and perform EKG daily. Lasix for complaints of dyspnea. Pepcid for acid reflux symptomatology. Echocardiogram today. Discharge either Sunday or Sunday based upon her responseto therapy Documented By: Christopher Richardson MD 7 Signed By: <Electronically signed by MD Christopher Richardson> 01/19/24 1211 [facility] Work Phone: 1(246) 588-433306-01-2024 History and physical note Author Izzy Capps [facility] January 19, 2024 1:25am Note Date/Time January 18, 2024 8:45p m [facility] [address] [place] [address] Hospitalist H&P Signed Patient: Lesa Golden MR#: [id number] : 1940 Acct:[id number] Age/Sex: 83 / F Adm Date: 4 Loc: Room: [address] [place] [address] Type: ADM IN Attending Dr: Izzy Capps MD Copies to: DO Izzy Carias MD~ HPI DATE OF EXAMINATION: 01/18/24 HISTORY OF PRESENT ILLNESS: This is a pleasant 83F with PMH of HTN, HLD, PAF (on Xarelto), SSS (s/p pacemaker), HFpEF, CKD, GERD, Fibromyalgia, Depression, chronic back pain, RLS who presented with SOB and admitted for the evaluation and treatment of Afib RVR For the past week, she reported that her BP machine was detecting afib. For the same period she has progressive SOB. She denied any chest pain ,cough, leg swelling, fever or chills. ROS: Ten Systems reviewed with the patient, all negative except what stated above and chronic back pain Assessment And Plan Paroxysmal Afib with RVR the patient was found to have Afib RVR in the ED with heart rate up to and was Started on Cardizem Drip * No troponin elevation * TSH wnl * EKG ED (i personally reviewed) shows Afib @ 124 bpm without significant acute changes * CXR ED: no acute cardiopulmonary abnormality, chronic changes * No significant electrolyte Abnormality Rate control : Diltiazem drip and oral Cardizem Sotalol Home Xarelto Telemetry Correct electrolyte abnormality if any Cardiology consult Chronic diseases:?Unless mentioned Above, Essential home medications have been continued.? DVT Px:?Addressed Code Status: FULL, discussed with patient Plan of care Discussed with:?the medical team, the patient [facility] Medical History Chronic heart failure with preserved ejection fraction (HFpEF) Sick sinus syndrome Fibromyalgia Stage 3a chronic kidney disease Pulmonary nodule CT: no nodules detected - 10/2022 Primary hypertension Paroxysmal atrial fibrillation Osteopenia of lumbar spine Obstructive sleep apnea Mild episode of recurrent major depressive disorder Lumbar spondylosis Large hiatal hernia Hypercholesterolemia History of esophageal stricture Cirrhosis Bladder incontinence Normal esophagogastroduodenoscopy (EGD) Hernia Depression Problem List clean-up per request of Phys. EHR Cmte Fibromyalgia Problem List clean-up per request of Phys. EHR Cmte Arthritis back and neck Problem List clean-up per request of Phys. EHR Cmte Hypertension Problem List clean-up per request of Phys. EHR [facility] History of cardiac pacemaker in situ Presbyesophagus Hiatal hernia Restless leg Hyperlipemia Problem List clean-up per request of Phys. EHR Cmte CHF (congestive heart failure) Problem List clean-up per request of Phys. EHR Cmte Kidney stones removal of kidney stone R flank in 2021 Problem List clean-up per request of Phys. EHR Cmte Pacemaker Problem List clean-up per request of Phys. EHR Cmte Atrial fibrillation, persistent Problem List clean-up per request of Phys. EHR Cmte COVID-19 2019 Problem List clean-up per request of Phys. EHR Cmte Atrial fibrillation with RVR Problem List clean-up per request of Phys. EHR Cmte Hernia of abdominal wall Problem List clean-up per request of Phys. EHR [facility] Surgical History History of cholecystectomy 2022 History of colonoscopy 2011 History of cardiac catheterization Problem List clean-up per request of Phys. EHR Cmte H/O eye surgery right eye Problem List clean-up per request of Phys. EHR Cmte History of cataract surgery marybeth eye Problem List clean-up per request of Phys. EHR [facility] History of appendectomy Problem List clean-up per request of Phys. EHR Cmte History of tonsillectomy Problem List clean-up per request of Phys. EHR Cmte H/O foot surgery left Problem List clean-up per request of Phys. EHR [facility] History of hysterectomy Problem List clean-up per request of Phys. EHR Cmte Family History Father Heart & renal disease, hypertensive, with heart fail/chron kidney dis Depression Sister Heart disease Mother Brain tumor Father Mother Social History Smoking Status: Never smoker Substance Use Type: None Substance Abuse Comment: etoh occasional Social History Comments: independent living at the [facility] Medications and Allergies Allergies Sulfa (Sulfonamide Antibiotics) Allergy (Mild, Verified 01/18/24 15:54) Itching fentanyl Allergy (Unknown, Verified 01/18/24 15:54) Unknown Reaction Home Medications rivaroxaban 15 mg tablet (Xarelto) 15 mg PO HS 12/05/21 [History Confirmed 01/18/24] sotalol 80 mg tablet 80 mg PO BID 30 days #60 tabs 09/21/22 [Rx Confirmed 01/18/24] atorvastatin 40 mg tablet 40 mg PO QHS 11/24/23 [History Confirmed 01/18/24] diltiazem HCl 180 mg capsule,extended release 24 hr 180 mg PO DAILY 30 days #30 caps 11/29/23 [Rx Confirmed 01/18/24] calcium carbonate (Calcium 600) 600 mg PO DAILY 01/18/24 [History Confirmed 01/18/24] ropinirole 1 mg tablet 1 mg PO QHS 01/18/24 [History Confirmed 01/18/24] vitamin A 2,500 unit-vit C 100 mg-biotin 2,500 mkk-rchm-dpznxt capsule (Aiep-Otrt-Mmws (vit A,S-qmfout-Ku-Cu)) 1 cap PO DAILY 01/18/24 [History Confirmed 01/18/24] escitalopram oxalate 10 mg tablet 10 mg PO HS 01/19/24 [History Confirmed 01/19/24] Exam Physical Exam Vital Signs: Temp Pulse Resp BP Pulse Ox O2 Del Method 36.6 C 106 H 18 158/86 H 97 Room Air 01/18/24 15:05 01/18/24 19:30 01/18/24 19:30 01/18/24 19:30 01/18/24 19:30 01/18/24 19:30 Narrative: GEN: Pleasant, Cooperative, Not in acute distress. NECK: Supple, ? JVD LUNGS: CTA. normal respiratory effort. CV: S1S2 nl, ? M/R/G ABD: Soft, ND, NT, + BS, ?CVA tenderness, ? HSM EXT: No edema in LE bilaterally, no calf muscle tenderness. NEURO: ? FND PSYCH: nl affect, AOx3. Results - Hospitalist H&P Lab Results Labs: Laboratory Last Values Corrected WBC 10.4 X10E3/uL (3.8-11.6) 01/18/24 15:40 Uncorrected WBC Count 10.4 x10E3/uL (3.8-11.6) 01/18/24 15:40 RBC 4.96 X10E6/uL (3.60-5.00) 01/18/24 15:40 Hgb 15.5 g/dL (11.8-15.4) H 01/18/24 15:40 Hct 45.9 % (34.0-46.4) 01/18/24 15:40 MCV 92.6 fl (80-100) 01/18/24 15:40 MCH 31.2 pg (24.7-34.3) 01/18/24 15:40 MCHC 33.7 g/dL (32.0-35.0) 01/18/24 15:40 RDW 14.1 % (11.9-15.3) 01/18/24 15:40 Plt Count 205 x10E3/uL (150-450) 01/18/24 15:40 MPV 8.5 fl (6.3-10.7) 01/18/24 15:40 Neut % (Auto) 81.5 % (.) 01/18/24 15:40 Lymph % (Auto) 9.2 % (.) 01/18/24 15:40 Hale % (Auto) 7.6 % (.) 01/18/24 15:40 Eos % (Auto) 1.2 % (.) 01/18/24 15:40 Baso % (Auto) 0.5 % (.) 01/18/24 15:40 Nucleat RBC Rel Count 0.1 /100 WBC (0-0.5) 01/18/24 15:40 Neut # (Auto) 8.5 x10E3/uL (1.8-7.7) H 01/18/24 15:40 Lymph # (Auto) 1.0 x10E3/uL (1.00-4.8) 01/18/24 15:40 Hale # (Auto) 0.8 x10E3/uL (0.0-0.8) 01/18/24 15:40 Eos # (Auto) 0.1 x10E3/uL (0.0-0.45) 01/18/24 15:40 Baso # (Auto) 0.1 x10E3/uL (0.0-0.2) 01/18/24 15:40 Monocyte Dist Width 18.06 % (0.00-20.00) 01/18/24 15:40 PT 16.8 Seconds (9.0-12.9) H 01/18/24 15:40 INR 1.5 01/18/24 15:40 APTT 31.3 Seconds (25.1-36.5) 01/18/24 15:40 PHA Creatinine Clear 40.09 01/18/24 16:34 Sodium 139 mmol/L (136-145) 01/18/24 16:34 Potassium 4.1 mmol/L (3.5-5.1) 01/18/24 16:34 Chloride 108 mmol/L (98-107) H 01/18/24 16:34 Carbon Dioxide 23.4 mmol/L (21.0-31.0) 01/18/24 16:34 Anion Gap 11.7 mEq/L (6.0-15.0) 01/18/24 16:34 BUN 29 mg/dL (7-25) H 01/18/24 16:34 Creatinine 0.96 mg/dL (0.60-1.20) 01/18/24 16:34 Est GFR (CKD-EPI) 59.440 mL/Min 01/18/24 16:34 Glucose 102 mg/dL (70-100) H 01/18/24 16:34 Calcium 9.2 mg/dL (8.6-10.3) 01/18/24 16:34 Magnesium 1.9 mg/dL (1.9-2.7) 01/18/24 16:34 Total Bilirubin 0.9 mg/dl (0.3-1.0) 01/18/24 16:34 AST 17 U/L (13-39) 01/18/24 16:34 ALT 29 U/L (7-52) 01/18/24 16:34 Alkaline Phosphatase 63 U/L (34-104) 01/18/24 16:34 Total Creatine Kinase 31 U/L (30-223) 01/18/24 15:40 Troponin I High Sens 14.7 pg/mL (0.0-15.0) 01/18/24 15:40 Total Protein 6.0 gm/dL (6.4-8.9) L 01/18/24 16:34 Albumin 3.7 gm/dL (3.5-5.7) 01/18/24 16:34 Globulin 2.3 gm/dL 01/18/24 16:34 Albumin/Globulin Ratio 1.6 01/18/24 16:34 Assessment & Plan Assessment/Plan (1) Atrial fibrillation with RVR: Plan IP vs OBS Justification Based on differential dx, clinical care plan, and risk of adverse events, if untreated, in my clinical judgement this patient requires an acute care setting as: INPATIENT because of an expectation of an over 2 midnight stay. Estimated length of stay (# of days): 2 Documented By: Izzy Capps MD 01/18/242044 Signed By: <Electronically signed by Izzy Capps MD> 01/19/[address] [facility] Work Phone: 1([phone]) 279-357801-31-2024 History of Present illness Narrative* Debbie Mac MD - 09/19/2023 1:00 PM EST Blaise Golden is a 83 y.o. female [...] interval. She had been seen in the pastby Dr. Stafford. She did undergo cardiac catheterization that showed small one-vessel disease affectingdiagonal medical therapy was recommended Assessment 1. Persistent [...] mouth once daily., Disp: , Rfl: HYDROcodone-acetaminophen ([place]) 10-325 mg tablet, Take 1 tablet by [...] vessel coronary artery disease [facility] Work Phone: 1([phone]) 333-376001-31-2024 Instructions* Patient Instructions* Maggy Vee LPN - 09/19/2023 1:00 PM [...] Maalox also. Pacemaker check [facility] Work Phone: 1([phone]) 547-530810-12-2023 History of Present illness Narrative* Debbie Mac MD - 05/31/2023 3:00 PM EDT Blaise Golden is a 82 y.o. female Chief Complaint Follow-up HPI Patient is here for follow-up continue management for persistent atrial fibrillation status post permanent pacemaker implantation. Last time I saw her she was in the process of being evaluated by for ablation but because the need for gallbladder surgery this was placed on hold. She underwent her surgery without cardiac issues or complication. Historically the patient did not tolerate amiodarone. Tachycardia seen higher dose resulted in significant QTc prolongation and on lower dose wasineffective. She is currently on sotalol and seem to remain in sinus rhythm. Her only complaint is shortness of breath. Her previous echo showed ejection fraction around 40%. Her previous heart cath s howed diagonal disease with normal ejection fraction. Assessment 1. Persistent atrial fibrillation with clinical picture of tachybradycardia syndrome. She is statuspost permanent pacemaker implantation recently remain in sinus rhythm off amiodarone which we discontinued because of concern about side effects. Tikosyn was ineffective of lower dose and resulted inprolonged QTc involving higher dose currently on sotalol [...] mouth once daily., Disp: , Rfl: HYDROcodone-acetaminophen ([place]) 10-325 mg tablet, Take 1 tablet by [...] serious comorbidity with body mass index (BMI) of32.0 to 32.9 in adult 10. Stage 3a chronic kidney disease (CMS/HCC) 11. Dyspnea, unspecified [facility] Work Phone: 1(596) 556-745710-12-2023 Instructions* Patient Instructions* Maggy Vee LPN - 05/31/2023 3:00 PM [...] time of your visit. [facility] Work Phone: 1([phone]) [phone] Evaluation note* Encounter Date Diagnosis Assessment Notes Treatment Notes Treatment Clinical Notes Mar, Medicare annual wellness visit, subsequent [...] are maintaining regular scheduled appts with their janitorial assistant. No bleeding complications Mar, Chronic heart failure [...] (ICD-10 - R06.02) Multifactorial but mostly deconditioning. LHC w/o obstructive coronary disease Psat 98% Untreated [...] High risk medication use (ICD-10 - Z79.899) [employer] Other 04-10-2023 Consult note Author Debbie Mac [facility] November 27, 2022 11:58am Note Date/Time November 27, 2022 11: 48am [facility] [address] [place] [address] Cardiology Consult Note Signed Patient: Lesa Golden MR#: [id number] : 1940 Acct:[id number] Age/Sex: 82 / F Adm Date: 3 Loc: [place] Room: Type: [facility] Attending Dr: Wilbur Watson DO Copies to: DO Debbie Carias MD Paul C Laffay, DO~ Cardiology HPI History of Present Illness [...] function and a previous stress test in [place] that showed no evidence of myocardial ischemia. [...] History of appendectomy History of cataract surgery mayrbeth eye History of hysterectomy History of tonsillectomy Family History Father Heart & renal disease, hypertensive, with heart fail/chron kidney dis Depression Sister Heart disease Mother Brain tumor Social History Smoking Status: Never smoker Substance Use Type: None Social History Comments: independent living at the [facility] Medications and Allergies Allergies fentanyl Allergy (Verified [...] signed by MD Debbie Mac> 11/27/[address] [facility] Work Phone: 1([phone]) 160-658504-10-2023 Progress note Author Emmanuel Holland [facility] November 27, 2022 11:10am Note Date/Time November 27, 2022 11: 10am [facility] [address] [place] [address] Anesthesia Progress Note Signed Patient: Lesa Golden MR#: [id number] : 1940 Acct:[id number] Age/Sex: 82 / F Adm Date: 3 Loc: [place] Room: Type: [facility] Attending Dr: Wilbur Watson DO Copies to: [...] by Emmanuel Holland Jr, MD> 11/27/[address] [facility] Work Phone: [phone] Evaluation note* Encounter Date Diagnosis Assessment Notes Treatment Notes Treatment Clinical Notes Oct, Pulmonary nodule (ICD-10 - R91.1) CT chest: no nodules - 10/2022 [employer] Other 03-07-2023 Evaluation note* Encounter Date Diagnosis [...] verbalized understanding and agreement of tx plan. [employer] Other 02-02-2023 Discharge summary Author Sam Dukes [facility] September 21, 2022 3:33pm Note Date/Time September 21, 2022 3 :17pm [facility] [address] [place], [place] [address] Discharge Summary Signed Patient: Lesa Golden MR#: [id number] : 1940 Acct:[id number] Age/Sex: 82 / F Adm Date: 3 Loc: Room: [address] [place] [address]: Sam Dukes DO Copies to: DO Sam Carias, ~ Providers Date of Discharge: 09/21/22 Discharging Provider: [...] and collapse. The patient was outside of congregational when she suddenly lost consciousness. Work-up in [...] % (Auto) 68.2, Lymph % (Auto) 18.9, Hale % (Auto) 7.6, Eos % (Auto) 4.6, Baso % (Auto) 0.7, Nucleat RBC Rel Count 0.0, Neut # (Auto) 3.9, Lymph # (Auto) 1.1, Hale # (Auto) 0.4, Eos # (Auto) 0.3, [...] You are scheduled for an EKG at [facility] on 09/27/2022 at 1:00pm Instructions: Heart Failure, [...] <Electronically signed by Sam Dukes DO> 09/21/[address] [facility] Work Phone: 1([phone]) 232-543802-02-2023 Progress note Author Debbie Mac [facility] September 21, 2022 9:48am Note Date/Time September 21, 2022 9 :45am [facility] [address] [place] [address] Cardiology Progress Note Signed Patient: Lesa Golden MR#: [id number] : 1940 Acct:[id number] Age/Sex: 82 / F Adm Date: 3 Loc: Room: [address] [place] [address] Type: ADM IN Attending Dr: Sam Dukes [...] % (Auto) 68.2 Lymph % (Auto) 18.9 Hale % (Auto) 7.6 Eos % (Auto) 4.6 Baso % (Auto) 0.7 Nucleat RBC Rel Count 0.0 Neut # (Auto) 3.9 Lymph # (Auto) 1.1 Hale # (Auto) 0.4 Eos # (Auto) 0.3 [...] ablation Documented By: Debbie Mac MD 09/21/22 0548 Signed By: <Electronically signed by MD Debbie Mac> 09/21/22 0980 [facility] Work Phone: 1([phone]) 314-824702-01-2023 Progress note Author Sam Dukes [facility] September 20, 2022 3:21pm Note Date/Time September 20, 2022 3 :21pm [facility] [address] [place] [address] Hospitalist Progress Note Signed Patient: Lesa Golden MR#: [id number] : 1940 Acct:[id number] Age/Sex: 82 / F Adm Date: 3 Loc: Room: [address] [place] [address] Type: ADM IN Attending Dr: Sam Dukes [...] signed by Sam Dukes DO> 09/20/[address] [facility] Work Phone: [phone]) [phone] History of Present illness Narrative* Lesa Golden is an 82 y/o female referred by Dr Mac for evaluation of AF. * PMH includes HTN, HLD, HF, SSS s/p PPG implant, CKD, obesity and AF. * Treatment of her AF includes Amiodarone (d/c d for concerns of intermediate side effects), tikosyn (prolonged OTc), sotalol and DCCV (09/2022). * Symptoms of her AF include fatigue and BRAY. * Pt follows with Dr Stover for management of her AF. Pt has previously been on Amio but was concerned about watermaster side effects. She was then put on [...] CONDUCTION @ 109 bpm * Echo 08/2022 ([facility]): LVEF 40%, moderate anteroseptal hypokinesis with wall motion suggestive of conduction abnormality, LA mildly dilated, trace MR & TR * Echo 06/2021: EF 45%, severe anteroseptal hypokinesis, mild-mod DD, LA mildly dilated, mild-mod MR,mild TR, mild-mod pHTN PW-Qezswdzbzr-Kafdin Work Phone: 1(684) 168-872802-01-2023 History of Present illness Narrative* Lesa Golden is an 82 y/o female referred by Dr Mac for evaluation of AF. * PMH includes HTN, HLD, HF, SSS s/p PPG implant, CKD, obesity and AF. * Treatment of her AF includes Amiodarone (d/c d for concerns of intermediate side effects), tikosyn (prolonged OTc), sotalol and DCCV (09/2022). * Symptoms of her AF include fatigue and BRAY. * Pt follows with Dr Stover for management of her AF. Pt has previously been on Amio but was concerned about watermaster side effects. She was then put on [...] CONDUCTION @ 109 bpm * Echo 08/2022 ([facility]): LVEF 40%, moderate anteroseptal hypokinesis with wall motion suggestive of conduction abnormality, LA mildly dilated, trace MR & TR * Echo 06/2021: EF 45%, severe anteroseptal hypokinesis, mild-mod DD, LA mildly dilated, mild-mod MR,mild TR, mild-mod pHTN SL-Pdsmbxpvtx-FOW [address] [place] Work Phone: 1(709) 262-398602-01-2023 Progress note Author Debbie Mac [facility] September 20, 2022 9:04am Note Date/Time September 20, 2022 9 :03am [facility] [address] [place] [address] Cardiology Progress Note Signed Patient: Lesa Golden MR#: [id number] : 1940 Acct:[id number] Age/Sex: 82 / F Adm Date: 3 Loc: Room: [address] [place] [address] Type: ADM IN Attending Dr: Sam Dukes [...] % (Auto) 65.4 Lymph % (Auto) 22.6 Hale % (Auto) 6.8 Eos % (Auto) 4.5 Baso % (Auto) 0.7 Nucleat RBC Rel Count 0.2 Neut # (Auto) 3.6 Lymph # (Auto) 1.2 Hale # (Auto) 0.4 Eos # (Auto) 0.2 [...] pacemaker check Documented By: Debbie Mac MD 09/20/22 0903 Signed By: <Electronically signed by MD Debbie Mac> 09/20/[address] [facility] Work Phone: 1(325) 318-250802-01-2023 [facility] Progress note Author Sam Dukes [facility] September 19, 2022 6:52pm Note Date/Time September 19, 2022 6 :52pm [facility] [address] [place] [address] Hospitalist Progress Note Signed Patient: Lesa Golden MR#: [id number] : 1940 Acct:[id number] Age/Sex: 82 / F Adm Date: 3 Loc: 4 Room: [address] [place] [address] Type: ADM IN Attending Dr: Sam Dukes [...] fever Atorvastatin Calcium 40 mg 09/17/22 22:00 01/30/23 22:58 Atorvastatin 40 Mg Tablet PO 09/17/23 [...] <Electronically signed by Sam Dukes DO> 09/19/[address] [facility] Work Phone: 1(384) 714-619601-31-2023 Progress note Author Debbie Mac [facility] September 19, 2022 9:57am Note Date/Time September 19, 2022 9 :57am [facility] [address] [place] [address] Cardiology Progress Note Signed Patient: Lesa Golden MR#: [id number] : 1940 Acct:[id number] Age/Sex: 82 / F Adm Date: 3 Loc: Room: [address] [place] [address] Type: ADM IN Attending Dr: Sam Dukes [...] % (Auto) 68.4 Lymph % (Auto) 20.4 Hale % (Auto) 6.6 Eos % (Auto) 4.0 Baso % (Auto) 0.6 Nucleat RBC Rel Count 0.1 Neut # (Auto) 4.2 Lymph # (Auto) 1.2 Hale # (Auto) 0.4 Eos # (Auto) 0.2 [...] signed by MD Debbie Mac> 09/19/[address] [facility] Work Phone: 1([phone]) 392-695801-30-2023 Progress note Author Sam Dukes [facility] September 18, 2022 6:04pm Note Date/Time September 18, 2022 6 :04pm [facility] [address] [place] [address] Hospitalist Progress Note Signed Patient: Lesa Golden MR#: [id number] : 1940 Acct:[id number] Age/Sex: 82 / F Adm Date: 3 Loc: Room: [address] [place] [address] Type: ADM IN Attending Dr: Sam Dukes [...] <Electronically signed by Sam Dukes DO> 09/18/[address] [facility] Work Phone: 1(259) 983-606101-30-2023 Consult note Author Debbie Mac [facility] September 18, 2022 3:50pm Note Date/Time September 18, 2022 3 :39pm [facility] [address] [place] [address] Cardiology Consult Note Signed Patient: Lsea Golden MR#: [id number] : 1940 Acct:[id number] Age/Sex: 82 / F Adm Date: 3 Loc: Room: [address] [place] [address] Type: ADM IN Attending Dr: Sam Dukes [...] test was 2 years ago back in [place] and was negative Review of Systems Review [...] Social History Comments: independent living at the [facility] Medications and Allergies Allergies fentanyl Allergy (Verified [...] signed by MD Debbie Mac> 09/18/[address] [facility] Work Phone: 1([phone] 352-618701-29-2023 History and physical note Author Jay Ceja [facility] September 17, 2022 5:45pm Note Date/Time September 17, 2022 5 :45pm [facility] [address] [place] [address] Hospitalist H&P Signed Patient: Lesa Golden MR#: [id number] : 1940 Acct:[id number] Age/Sex: 82 / F Adm Date: 3 Loc: 4 Room: [address] [place] [address] Type: ADM IN Attending Dr: Jay Ceja DO Copies to: DO Jay Carias, DO~ HPI DATE OF EXAMINATION: 09/17/22 CHIEF COMPLAINT: A-Fib with RVR, syncope with collapse today. HISTORY OF PRESENT ILLNESS: I am asked to admit this patient to the hospital on behalf of cardiology with Dr. aMc. This is a very pleasant 82-year-old woman [...] rate at home. Today she was at congregational and she was standing upwaiting for her [...] Social History Comments: independent living at the [facility] Medications and Allergies Allergies fentanyl Allergy (Verified [...] % (Auto) 15.2 % (.) 09/17/22 13:19 Hale % (Auto) 7.1 % (.) 09/17/22 13:19 Eos % (Auto) 3.5 % (.) 09/17/22 13:19 Baso % (Auto) 0.6 % (.) 09/17/22 13:19 Nucleat RBC Rel Count 0.3 /100 WBC (0-0.5) 09/17/22 13:19 Neut # (Auto) 5.9 x10E3/uL (1.8-7.7) 09/17/22 13:19 Lymph # (Auto) 1.2 x10E3/uL (1.00-4.8) 09/17/22 13:19 Hale # (Auto) 0.6 x10E3/uL (0.0-0.8) 09/17/22 13:19 [...] pH 5.5 (5.0-9.0) 09/17/22 13:19 Ur Specific Merigold 1.024 (1.001-1.030) 09/17/22 13:19 Urine Protein Trace [...] after meals. Documented By: Jay Ceja DO 173 Signed By: <Electronically signed by Jay Ceja, > 09/17/[address] [facility] Work Phone: 1(761) 117-626201-24-2023 Evaluation note* Encounter Date Diagnosis Assessment Notes Treatment Notes Treatment Clinical Notes Aug, Persistent atrial fibrillation (ICD-10 - I48.19) This patient is in NSR or rate controlled. This patient is anticoagulated to prevent thromboembolic events. They are maintaining regular scheduled appts with their janitorial assistant. Aug, Chronic heart failure with preserved ejection [...] use, the patient reduces the risk for MD, CVA, HTN, cardiac dysrhythmias and sudden cardiac [...] supplement, exercise w/ healthy diet. Symptoms tolerable [employer] Other 01-18-2023 Progress note Author Debbie Mac [facility] September 06, 2022 9:57am Note Date/Time September 06, 2022 9 :53am [facility] [address] [place] [address] Cardiology Progress Note Signed Patient: Lesa Golden MR#: [id number] : 1940 Acct:[id number] Age/Sex: 81 / F Adm Date: 3 Loc: Room: [address] [place] [address] Type: ADM IN Attending Dr: Anival Easton [...] signed by MD Debbie Mac> 09/06/[address] [facility] Work Phone: 1(393) 233-463001-17-2023 Progress note Author Anival Easton [facility] September 05, 2022 6:18pm Note Date/Time September 05, 2022 3 :58pm [facility] [address] [place] [address] Hospitalist Progress Note Signed Patient: Lesa Golden MR#: [id number] : 1940 Acct:[id number] Age/Sex: 81 / F Adm Date: 3 Loc: 4 Room: [address] [place] [address] Type: ADM IN Attending Dr: Anival Easton [...] mg 09/01/22 20:29 Bisacodyl 10 Mg Supp.Rect HI 09/01/23 20:28 DAILY PRN Constipation Docusate Sodium [...] 2. Dysphagia?speech therapy, postrepair paraesophageal hiatal hernia [place] [address] Attending attestation: Patient was personally seen by me on the day of encounter. I reviewed her history and performed shea elements of exam and formulated the plan of care and confirmed the ENVELOPE MACHINE OPERATOR's note above. Plan of care reflects my direct input Documented By: RAY Jacob-ABI 3 1558 Signed By: <Electronically signed by ANP-BC Josephine Haro> 09/05/22 1722 <Electronically signed by Anival Easton MD> 09/05/22 1818 [facility] Work Phone: 1(677) 196-949401-17-2023 Progress note Author Debbie Mac [facility] September 05, 2022 12:06pm Note Date/Time September 05, 2022 1 2:06pm [facility] [address] [place] [address] Cardiology Progress Note Signed Patient: Lesa Golden MR#: [id number] : 1940 Acct:[id number] Age/Sex: 81 / F Adm Date: 3 Loc: 4 Room: [address] [place] [address] Type: ADM IN Attending Dr: Anival Easton [...] % (Auto) 59.1 Lymph % (Auto) 25.6 Hale % (Auto) 9.7 Eos % (Auto) 4.7 Baso % (Auto) 0.9 Nucleat RBC Rel Count 0.2 Neut # (Auto) 3.3 Lymph # (Auto) 1.4 Hale # (Auto) 0.5 Eos # (Auto) 0.3 [...] <Electronically signed by MD Debbie Mac> 09/05/[address] [facility] Work Phone: 1(326) 915-195301-17-2023 Progress note Author Anival Easton [facility] September 05, 2022 8:27am Note Date/Time September 04, 2022 2 :47pm [facility] [address] [place] [address] Hospitalist Progress Note Signed Patient: Lesa Golden MR#: [id number] : 1940 Acct:[id number] Age/Sex: 81 / F Adm Date: 3 Loc: Room: [address] [place] [address] Type: ADM IN Attending Dr: Anival Easton [...] mg 09/01/22 20:29 Bisacodyl 10 Mg Supp.Rect HI 09/01/23 20:28 DAILY PRN Constipation Docusate Sodium [...] 100 Mg Tablet PO 09/04/23 20:59 BID KWAN Multivitamins 1 tab 09/02/22 09:00 09/04/22 10:00 [...] 3 1446 Signed By: <Electronically signed by MELY Haro> 09/04/22 1928 <Electronically signed by Anival Easton MD> 09/05/[address] [facility] Work Phone: 1(908) 983-821301-16-2023 Progress note Author Jimena Smith [facility] September 04, 2022 11:32am Note Date/Time September 04, 2022 1 1:32am [facility] [address] [place] [address] Cardiology Progress Note Signed Patient: Lesa Golden MR#: [id number] : 1940 Acct:[id number] Age/Sex: 81 / F Adm Date: 3 Loc: Room: [address] [place] [address] Type: ADM IN Attending Dr: Anival Easton [...] % (Auto) 64.7 Lymph % (Auto) 22.7 Hale % (Auto) 7.6 Eos % (Auto) 4.3 Baso % (Auto) 0.7 Nucleat RBC Rel Count 0.2 Neut # (Auto) 4.3 Lymph # (Auto) 1.5 Hale # (Auto) 0.5 Eos # (Auto) 0.3 [...] pressure readings Documented By: Jimena Smith MD, [facility] 3 1129 Signed By: <Electronically signed by MD CLAUDIA Smith> 09/04/[address] [facility] Work Phone: 1(606) 905-450201-15-2023 Progress note Author Jay Ceja [facility] September 03, 2022 1:12pm Note Date/Time September 03, 2022 1 :12pm [facility] [address] [place] [address] Hospitalist Progress Note Signed Patient: Lesa Golden MR#: [id number] : 1940 Acct:[id number] Age/Sex: 81 / F Adm Date: 3 Loc: Room: [address] [place] [address] Type: ADM IN Attending Dr: Jay Ceja [...] mg 09/01/22 20:29 Bisacodyl 10 Mg Supp.Rect HI 09/01/23 20:28 DAILY PRN Constipation Bisacodyl 10 [...] problemsafter repair of a paraesophageal hiatal hernia [facility] and 2016. High-resolution CT scan of [...] signed by Jay Ceja DO> 09/03/[address] [facility] Work Phone: 1(353) 521-792001-15-2023 Progress note Author Jimena Smith [facility] September 03, 2022 12:24pm Note Date/Time September 03, 2022 1 2:21pm [facility] [address] [place] [address] Cardiology Progress Note Signed Patient: Lesa Golden MR#: [id number] : 1940 Acct:[id number] Age/Sex: 81 / F Adm Date: 3 Loc: Room: [address] [place] [address] Type: ADM IN Attending Dr: Jay Ceja [...] % (Auto) 68.3 Lymph % (Auto) 19.1 Hale % (Auto) 8.2 Eos % (Auto) 3.9 Baso % (Auto) 0.5 Nucleat RBC Rel Count 0.2 Neut # (Auto) 5.0 Lymph # (Auto) 1.4 Hale # (Auto) 0.6 Eos # (Auto) 0.3 [...] add spironolactone Documented By: Jimena Smith MD, [facility] 3 1220 Signed By: <Electronically signed by MD CLAUDIA Smith> 09/03/22 1224 [facility] Work Phone: 1([phone]) 121-235601-14-2023 Consult note Author Jimena Smith [facility] September 02, 2022 2:58pm Note Date/Time September 02, 2022 2 :53pm [facility] [address] [place] [address] Cardiology Consult Note Signed Patient: Lesa Golden MR#: [id number] : 1940 Acct:[id number] Age/Sex: 81 / F Adm Date: 3 Loc: Room: [address] [place] [address] Type: ADM IN Attending Dr: Jay Ceja DO Copies to: DO Jimena Carias MD, [facility] Jay Ceja DO~ Cardiology HPI History of [...] I covered above in HPI was unremarkable [facility] Vaccinated for COVID-19?: No Medical History (Updated [...] Social History Comments: independent living at the [facility] Medications and Allergies Allergies fentanyl Allergy (Verified [...] 1 mg tablet 1 mg PO QHS 11/11/21 [History Confirmed 09/01/22] rivaroxaban 15 mg tablet [...] x10E3/uL Lymph # (Auto) 1.6 (1.00-4.8) x10E3/uL Hale # (Auto) 0.5 (0.0-0.8) x10E3/uL Eos # [...] ml @ 600 mls/hr IV [facility] Rx#:[id number] Amiodarone 360Mg-*D5w* 360 mg 200 / 200 200 / 400 200 / 400 In 200 ml @ 1 MG/MIN 33.333 mls /hr IV .Q6H [facility] Rx#:[id number] Oral 100 / 100 Other: # Voids [...] (primary) hypertension Documented By: Jimena Smith MD, [facility] 3 1452 Signed By: <Electronically signed by [facility] Jimena Smith> 09/02/[address] [facility] Work Phone: 1([phone]) 898-519501-14-2023 Progress note Author Jay Ceja [facility] September 02, 2022 2:42pm Note Date/Time September 02, 2022 1 :43pm [facility] [address] [place] [address] Hospitalist Progress Note Signed Patient: Lesa Golden MR#: [id number] : 1940 Acct:[id number] Age/Sex: 81 / F Adm Date: 3 Loc: Room: [address] [place] [address] Type: ADM IN Attending Dr: Jay Ceja [...] mg 09/01/22 20:29 Bisacodyl 10 Mg Supp.Rect HI 09/01/23 20:28 DAILY PRN Constipation Bisacodyl 10 [...] signed by Jay Ceja DO> 09/02/[address] [facility] Work Phone: 1([phone] 435-136601-13-2023 History and physical note Author Jay Ceja [facility] September 01, 2022 8:29pm Note Date/Time September 01, 2022 8 :29pm [facility] [address] [place] [address] Hospitalist H&P Signed Patient: Lesa Golden MR#: [id number] : 1940 Acct:[id number] Age/Sex: 81 / F Adm Date: 3 Loc: ER Room: Type: [facility] ER Attending Dr: Copies to: DO Jay Carias DO Scotty J Fulton, DO~ HPI DATE OF EXAMINATION: 09/01/22 CHIEF COMPLAINT: [...] review all of the events in the finishing lab technician system. None of these are consistent with [...] Social History Comments: independent living at the [facility] Medications and Allergies Allergies fentanyl Allergy (Verified [...] wheezing. No focal crackles. Heart: On the finishing lab technician she has an irregularly irregular rhythm with [...] % (Auto) 13.9 % (.) 09/01/22 12:40 Hale % (Auto) 7.5 % (.) 09/01/22 12:40 Eos % (Auto) 4.1 % (.) 09/01/22 12:40 Baso % (Auto) 0.8 % (.) 09/01/22 12:40 Nucleat RBC Rel Count 0.1 /100 WBC (0-0.5) 09/01/22 12:40 Neut # (Auto) 5.9 x10E3/uL (1.8-7.7) 09/01/22 12:40 Lymph # (Auto) 1.1 x10E3/uL (1.00-4.8) 09/01/22 12:40 Hale # (Auto) 0.6 x10E3/uL (0.0-0.8) 09/01/22 12:40 [...] pH 5.5 (5.0-9.0) 09/01/22 13:32 Ur Specific Merigold 1.022 (1.001-1.030) 09/01/22 13:32 Urine Protein 30 mg/dL (Negative) H 09/01/22 [...] <Electronically signed by Jay Ceja DO> 09/01/22[address] [facility] Work Phone: [phone]) 539-495709-08-2022 Evaluation note* Encounter Date Diagnosis Assessment Notes Treatment Notes Treatment Clinical Notes Apr, Cirrhosis (ICD-10 - K74.60) Apr, Vomiting (ICD-10 - R11.10) THIS IS 10 MINS ATER EATING AND UNDIGESTED FOODS. 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 PATIENT DID HAVE A MODIFIEDBARIUM SWALLOWNorth Spinal Modulation Other 11-15-2021 Note [id number]#1.00CD:127[facility] 06-23-2021 [id number] [place] [address] [place] Work Phone: 1([phone] 956-392811-04-2021 [id number]:09[facility] ECG Post Procedure [facility] [address] [place] Work Phone: 1([phone] 434-816811-04-2021 [id number]:09FR ECG Post Procedure [facility] [address] [place] Work Phone: [phone] 554-643311-02-2021 NoteSUM[facility] COVID-19 FRMCNegative (Normal) Range:Negative Comments:Testing for SARS-CoV-2 by RT-PCR This test was developed and its performance characteristics determined by [employer] (Ui[employer]) and validated at the [facility]. This test has not been FDA [...] the authorization is terminated or revoked sooner.PERFORMED BY:[facility]1111 LUAN YOST [id number] MEDICAL DIRECTORVITOR ZARATE M.D. -[facility]-[place] [address] [place] Work Phone: Comment on above:Testing for SARS-CoV-2 by RT-PCR This test was developed and its performance characteristics determined by [employer] (BD) and validated at the [facility]. This test has not been FDA [...] the authorization is terminated or revoked sooner.PERFORMED BY:[place] [address] [place] [place], [place] [id number] MEDICAL DIRECTORVITOR ZARATE M.D. 06-21-2021 NoteFR COVID-19 FRMCNegative (Normal)Range:Negative Comments:Testing for SARS-CoV-2 by RT-PCR This test was developed and its performance characteristics determined by [employer] (BD) and validated at the [facility]. This test has not been FDA [...] the authorization is terminated or revoked sooner.PERFORMED BY:[place] [address] LU[address] YOST [id number] MEDICAL DIRECTORVITOR ZARATE M.D. [facility] [address] Work Phone: Comment on above:Testing for SARS-CoV-2 by RT-PCR This test was developed and its performance characteristics determined by [employer] (BD) and validated at the [facility]. This test has not been FDA [...] the authorization is terminated or revoked sooner.PERFORMED BY:[place] [address] LU[address] YOST [id number] MEDICAL DIRECTORVITOR ZARATE M.D. 06-21-2021 NoteFR COVID-19 FRMCNegative (Normal)Range:Negative Comments:Testing for SARS-CoV-2 by RT-PCR This test was developed and its performance characteristics determined by [employer] (BD) and validated at the [facility]. This test has not been FDA [...] the authorization is terminated or revoked sooner.PERFORMED BY:[place] [address] [address] OLIVA [place] [id number] MEDICAL DIRECTORVITOR ZARATE M.D. [place] [id number] [place] Work Phone: Comment on above:Testing for SARS-CoV-2 by RT-PCR This test was developed and its performance characteristics determined by [employer] (BD) and validated at the [facility]. This test has not been FDA [...] the authorization is terminated or revoked sooner.PERFORMED BY:[place] [address] [address] [place]AC[place], [place] [id number] MEDICAL DIRECTORVITOR ZARATE M.D. 06-21-2021 NoteFR COVID-19 FRMCNegative (Normal)Range:Negative Comments:Testing for SARS-CoV-2 by RT-PCR This test was developed and its performance characteristics determined by [employer] (BD) and validated at the [facility]. This test has not been FDA [...] the authorization is terminated or revoked sooner.PERFORMED BY:[place] [address] [address] [place], [place] [id number] MEDICAL DIRECTORVITOR ZARATE M.D. [address] Work Phone: Comment on above:Testing for SARS-CoV-2 by RT-PCR This test was developed and its performance characteristics determined by [employer] (UiTV) and validated at the [facility]. This test has not been FDA [...] the authorization is terminated or revoked sooner.PERFORMED BY:[place] [address] [address] [place], [place] [id number] MEDICAL DIRECTORVITOR ZARATE M.D. 06-21-2021 NoteFR COVID-19 FRMCNegative (Normal)Range:Negative Comments:Testing for SARS-CoV-2 by RT-PCR This test was developed and its performance characteristics determined by [employer] (BD) and validated at the [facility]. This test has not been FDA [...] the authorization is terminated or revoked sooner.PERFORMED BY:[place] [address] [address] [place], [place] [id number] MEDICAL DIRECTORVITOR ZARATE M.D. [address] Work Phone: Comment on above:Testing for SARS-CoV-2 by RT-PCR This test was developed and its performance characteristics determined by [employer] (BD) and validated at the [facility]. This test has not been FDA [...] the authorization is terminated or revoked sooner.PERFORMED BY:[place] [address] [address] [place] [id number] MEDICAL DIRECTORVITOR ZARATE M.D. 06-21-2021 NoteFR COVID-19 [facility]Normal)Range:Negative Comments:Testing for SARS-CoV-2 by RT-PCR This test was developed and its performance characteristics determined by [employer] (BD) and validated at the [facility]. This test has not been FDA [...] the authorization is terminated or revoked sooner.PERFORMED BY:[facility] [place], [place] [id number] MEDICAL DIRECTORVITOR ZARATE M.D. [address] Work Phone: Comment on above:Testing for SARS-CoV-2 by RT-PCR This test was developed and its performance characteristics determined by [employer] (BD) and validated at the [facility]. This test has not been FDA [...] the authorization is terminated or revoked sooner.PERFORMED BY:[place] [address] [address] OLIVA [place] [id number] MEDICAL DIRECTORVITOR ZARATE M.D. 06-21-2021 NoteFR COVID-19 [facility] (Normal)Range:Negative Comments:Testing for SARS-CoV-2 by RT-PCR This test was developed and its performance characteristics determined by [employer] (BD) and validated at the [facility]. This test has not been FDA [...] the authorization is terminated or revoked sooner.PERFORMED BY:[place] [address] [address] OLIVA ID [id number] MEDICAL DIRECTORVITOR ZARATE M.D. [facility] [address] DO Work Phone: Comment on above:Testing for SARS-CoV-2 by RT-PCR This test was developed and its performance characteristics determined by [employer] (BD) and validated at the [facility]. This test has not been FDA [...] the authorization is terminated or revoked sooner.PERFORMED BY:[address] [id number] MEDICAL DIRECTORVITOR ZARATE M.D. Chief complaint Narrative - ReportedLESA GOLDEN is being seen for a cardiovascular evaluation of atrial fibrillation.[facility] Work Phone: Chief complaint Narrative - ReportedLESA GOLDEN is being seen for a cardiovascular evaluation of atrial fibrillation. [id number] Francis Flores [address] [place] Work Phone: Consult note Author Jimena Smith [facility] September 02, 2022 2:58pm Note Date/Time September 02, 2022 2 :53pm [facility] [address] [place] [address] Cardiology Consult Note Signed Patient: Lesa Golden MR#: [id number] : 1940 Acct:[id number] Age/Sex: 81 / F Adm Date: 3 Loc: Room: [address] [place] [address] Type: ADM IN Attending Dr: Jay Ceja DO Copies to: DO Jimena Carias MD, [facility] Jay Ceja, ~ Cardiology HPI History of Present Illness Consult [...] I covered above in HPI was unremarkable [facility] Vaccinated for COVID-19?: No Medical History (Updated [...] Social History Comments: independent living at the [facility] Medications and Allergies Allergies fentanyl Allergy (Verified [...] x10E3/uL Lymph # (Auto) 1.6 (1.00-4.8) x10E3/uL Hale # (Auto) 0.5 (0.0-0.8) x10E3/uL Eos # [...] ml @ 600 mls/hr IV [facility] Rx#:[id number] Amiodarone 360Mg-*D5w* 360 mg 200 / 200 200 / 400 200 / 400 In 200 ml @ 1 MG/MIN 33.333 mls /hr IV .Q6H [facility] Rx#:[id number] Oral 100 / 100 Other: # Voids [...] (primary) hypertension Documented By: Jimena Smith MD, [facility] 3 1452 Signed By: <Electronically signed by [facility] Jimena Smith> 09/02/[address] [place] [address] Ctr Work Phone: Discharge summary Author Izzy Capps [facility] January 20, 2024 3:42pm Note Date/Time January 20, 2024 2:55p [facility] [address] [place] [address] Discharge Summary Signed Patient: Lesa Golden MR#: [id number] : 1940 Acct:[id number] Age/Sex: 83 / F Adm Date: 4 Loc: Room: [address] [place] [address]: Izzy Capps MD Copies to: DO Izzy Carias MD~ Providers Date of Discharge: 01/20/24 Discharging Provider: Izzy Capps Primary Care Provider: Chester العلي Consults: * Christopher Richardson MD; Cardiology Discharge Diagnosis (1) Atrial fibrillation with RVR: (2) Chronic heart failure with preserved ejection fraction (HFpEF): Final Diagnosis Final Discharge Diagnosis: As Above Summary Hospital Course Hospital course: Mrs. Golden is a pleasant 83F with PMH of HTN, HLD, PAF (on Xarelto), SSS (s/p pacemaker), HFpEF, CKD, GERD, Fibromyalgia, Depression, chronic back pain, RLS who presented with SOB and admitted for the evaluation and treatment of Afib RVR the patient was found to have Afib RVR in the ED with heart rate up to and was Started on Cardizem Drip * No troponin elevation * TSH wnl * EKG ED shows Afib @ 124 bpm without significant acute changes * CXR ED no acute cardiopulmonary abnormality, chronic changes * No significant electrolyte Abnormality; Mg 1.9 Cardiology was consulted. Sotalol dose and was increased and was started on Lasix IV her rate is controlled, She is to be discharged on higher dose sotalol 120 mg twice daily. Reduce diltiazem to 120 mg a day. Continue anticoagulant therapy. Low- dose furosemide 20 mg a day. * During the patient's stay, all other chronic conditions remained stable unlessotherwise noted above. I have personally seen and examined the patient on the date of this note. The patient's condition has stabilized and shown improvement.Consequently, the decision has been made to discharge the patient to continue treatment on an outpatient basis. Both verbal and written discharge instructionswill be provided to ensure a smooth transition and continuity of care. Time Spent with Patient Time spent providing/coordinating discharge services (# min): 25 Discharge Plan Discharge Plan Patient Disposition: Home Activity: No Activity Restriction Diet: Low-Fat and Low-Sodium Instructions: Atrial Fibrillation (DC), Know your Meds Prescriptions: New sotalol [Sotalol AF] 120 mg Tablet 120 mg PO BID Qty: 60 11RF diltiazem HCl 120 mg capsule,extended release 24hr 120 mg PO DAILY Qty: 30 11RF furosemide 20 mg tablet 20 mg PO DAILY Qty: 30 11RF Continued Xarelto 15 mg tablet 15 mg PO HS Hold Instructions: Resume on 03/08/23. Patient Comments: TAKE 1 TABLET BY MOUTH EVERYDAY AT BEDTIME ropinirole 1 mg tablet 1 mg PO QHS Oegx-Lzhq-Kqfc(vit A,C-biotin) 2,500 unit-100 mg-2,500 mcg capsule 1 cap PO DAILY calcium carbonate [Calcium 600] 600 mg calcium (1,500 mg) tablet 600 mg PO DAILY escitalopram oxalate 10 mg tablet 10 mg PO HS Rx Instructions: TAKE 1 TABLET BY MOUTH EVERYDAY AT BEDTIME atorvastatin 40 mg tablet 40 mg PO QHS Discontinued diltiazem HCl 180 mg capsule,extended release 24hr 180 mg PO DAILY 30 Days Qty: 30 0RF sotalol 80 mg Tablet 80 mg PO BID 30 Days Qty: 60 12RF Follow Up: [facility] [Provider Group] (Call office on Sunday to schedule follow-up with [facility]. ) Chester العلي DO [Primary Care Provider] - (Call office on Sunday to schedule follow-up with your Primary Care Provider in 3-5 days. ) Exam Physical Exam Narrative: BP: 128/86; Pulse: 78; Temp: 36.6C; RR: 18; SpO2: 96% [On RA] GEN: Pleasant, Cooperative, Not in acute distress. LUNGS: CTA CV: S1S2 nl, ? M/R/G ABD: Soft, ND, NT, + BS, EXT: No edema in LE bilaterally, no calf muscle tenderness. NEURO: ? FND PSYCH: nl affect, AOx3. Documented By: Izzy Capps MD 01/20/24 1452 Signed By: <Electronically signed by Izzy Capps MD> 01/20/24 1542 [facility] Work Phone: Evaluation noteNo assessment information available [facility] Work Phone: Evaluation noteNo InformationNort Spinal Modulation Other Evaluation note* Diagnosis Onset Date Resolution Status Atrial fibrillation with rapid ventricular response acute CHF (congestive heart failure) acute Dysphagia acute Dyspnea on exertion acute Hypertension acute Sick sinus syndrome acute Ventricular tachycardia acut e Weakness acute [facility] Work Phone: Evaluation note* Diagnosis Onset Date Resolution Status Atrial fibrillation with rapid ventricular response acute CHF (congestive heart failure) acute Dysphagia acute Dyspnea on exertion acute HTN (hypertension), benign a cute Hypertension acute Left ventricular systolic dysfunction, NYHA class 2 acute Sick sinus syndrome acute Ventricular tachycardia acut e Weakness acute [facility] Work Phone: Evaluation note* Diagnosis Onset Date Resolution Status Atrial fibrillation with rapid ventricular response acute CHF (congestive heart failure) acute Dysphagia acute Dyspnea on exertion acute HTN (hypertension), benign a cute Hypertension acute Left ventricular systolic dysfunction, NYHA class 2 acute Sick sinus syndrome acute Ventricular tachycardia acut e Weakness acute Atrial fibrillation with rapid ventricular response acute Syncope acute [facility] Work Phone: evaluation note* Diagnosis Onset [...] dysfunction, NYHA class 2 acute Syncope acute [facility] Work Phone: evaluation note* Diagnosis Onset [...] acute Syncope acute Atrial fibrillation, persistent acute [facility] Work Phone: Evaluation note* Diagnosis Onset Date Resolution Status Anticoagulated acute Atrial fibrillation with rapid ventricular response acute Dyspnea on exertion acute Hypertension acute Left ventricular systolic dysfunction, NYHA class 2 acute Syncope acute Atrial fibrillation, persistent acute [facility] Work Phone: Evaluation note* Diagnosis Persistent atrial fibrillation (CMS/HCC)- Primary [...] Dyspnea, unspecified type documented in this encounter [facility] Work Phone: Evaluation note* Diagnosis Chronic diastolic heart failure (CMS/HCC) Chronic diastolic heart failure Essential hypertension, benign Dyspnea, unspecified type documented in this encounter [facility] Work Phone: [phone] note* Diagnosis Chronic diastolic heart failure (CMS/HCC) Chronic diastolic heart failure Essential hypertension, benign Dyspnea, unspecified type documented in this encounter [facility] Work Phone: Evaluation note* Diagnosis Persistent atrial fibrillation (CMS/HCC)- Primary Atrial fibrillation 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) Chronic diastolic heart failure (CMS/HCC) Chronic diastolic heart failure Essential hypertension, benign Mixed hyperlipidemia Pacemaker Cardiac pacemaker in situ Sinus bradycardia Other specified cardiac dysrhythmias Single vessel coronary artery disease Coronary atherosclerosis of unspecified type of vessel, [place] or graft documented in this encounter [facility] Work Phone: Evaluation note* Diagnosis Onset Date Resolution Status 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) acute Hypercholesterolemia acute Lumbar spondylosis acute Obstructive sleep apnea acut e Paroxysmal atrial fibrillation acute Primary hypertension acute Stage 3a chronic kidney disease [facility] Work Phone: evaluation note* Diagnosis Onset Date Resolution Status 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) acute Hypercholesterolemia acute Lumbar spondylosis acute Obstructive sleep apnea acut e Paroxysmal atrial fibrillation acute Primary hypertension acute Stage 3a chronic kidney disease acute Atrial fibrillation with RVR acute 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) acute Stage 3a chronic kidney disease [facility] Work Phone: Evaluation note* Diagnosis Onset Date Resolution Status 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) acute Hypercholesterolemia acute Lumbar spondylosis acute Obstructive sleep apnea acut e Paroxysmal atrial fibrillation acute Primary hypertension acute Stage 3a chronic kidney disease acute 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) acute Stage 3a chronic kidney disease acute Atrial fibrillation with RVR resolved 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) acute Hypercholesterolemia acute Lumbar spondylosis acute Obstructive sleep apnea acut e Paroxysmal atrial fibrillation acute Primary hypertension acute Stage 3a chronic kidney disease acute Hx of hiatal hernia noneacti ve Nausea & vomiting noneactive [facility] Work Phone: Hisfbcc general Narrative - Reported* Type Description Date Medical History fibromyalgia Medical History chronic pain Medical History hypertension Surgical History hernia 2014 Surgical History foot surgery Surgical History cardiac pacemeker Surgical History appendectomy Hospitalization History hospitalization in every 24. Depression with treatment of ECT Hospitalization History no history of suicide at tempt Hospitalization History no history of trauma and substance abuse [employer] Other [facility] general Narrative - Reported* Type Description Date [...] substance abuse Hospitalization History SEE SURGICAL HX [employer] Other Hisitra general Narrative - Reported* Type Description Date [...] left Medical History Malaise Surgical History hernia 2015 Surgical History foot [...] substance abuse Hospitalization History SEE SURGICAL HX [employer] Other History of Present illness Narrative* Patient [...] testing * 6. 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 Mota. She reports she underwent esophageal dilatation not too long ago. Her recent device check and EKG today demonstrate maintenance of sinus rhythm. Recent laboratory data showed creatinine 1.6. Previous echocardiogram showed LV systolic function in the normal range and a previous stress test was negative in [place]. * Assessment * 1. Persistent atrial fibrillation [...] and try to lose some weight [facility] [employer] 250 DO Work Phone: History of Present [...] I reviewed her pacemaker check with her [facility] 250 DO Work Phone: History of [...] advised her to restrict her salt intake [facility] Work Phone: History of Present [...] advised her to restrict her salt intake [facility] Work Phone: History of Present [...] advised her to restrict her salt intake [facility] Work Phone: Hospital Discharge instructions Additional Instructions Speech therapy recommendations: *Take pills whole with water *Sit upright at 90 degrees during all oral intake *Sit upright for 30 minutes after meals and snacks Dietitian recommendations: *Boost plus, 1 container, daily with [facility] Work Phone: Hospital Discharge instructions Additional Instructions You are scheduled for an EKG at /[facility] Office on 09/27/2022 at 1:00pm [facility] Work Phone: Progress note Author Jay Ceja [facility] September 02, 2022 2:42pm Note Date/Time September 02, 2022 1 :43pm [facility] [address] [place] [address] Hospitalist Progress Note Signed Patient: Lesa Golden MR#: [id number] : 1940 Acct:[id number] Age/Sex: 81 / F Adm Date: 3 Loc: Room: [address] [place] [address] Type: ADM IN Attending Dr: Jay Ceja [...] 09/02/22 12:00 09/02/22 12:00 09/02/22 12:00 09/02/22 12:09/02/22 12:00 Narrative: Lungs: Diminished throughout, especially in [...] mg 09/01/22 20:29 Bisacodyl 10 Mg Supp.Rect HI 09/01/23 20:28 DAILY PRN Constipation Bisacodyl 10 [...] signed by Jay Ceja DO> 09/02/[address] 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) Pacemaker Sinus bradycardia Debbie Mac MD [address] [facility] 2, [address] [address] Referral ID Status Reason Start Date Expiration Date Visits Requested Visits Authorized [id number] Authorized Specialty Services Required 09/19/2023 09/18/2024 1 1 * Cardiovascular (Routine) - Authorized Specialty Diagnoses / Procedures Referred By Ashtyn dobson Referred To Contact Diagnoses Persistent atrial fibrillation (CMS/HCC) Procedures ECG 12 Lead Debbie Mac MD [facility] 2, [address] [address] Referral ID Status Reason Start Date Expiration Date V isits Requested Visits Authorized [id number] Authorized 09/19/2023 09/18/2024 1 1 * Consultation (Routine) - Authorized Specialty Diagnoses / Procedures Referred By Ashtyn dobson Referred To Contact Cardiology Diagnoses Persistent atrial fibrillation (CMS/HCC) 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) Chronic diastolic heart failure (CMS/HCC) Procedures Follow Up In Cardiology Debbie Mac MD [facility] 2, [address] [address] Debbie Mac MD [facility] 2, [address] [address] Referral ID Status Reason Start Date Expiration Date V isits Requested Visits Authorized [id number] Authorized 09/19/2023 09/18/2024 1 1 [facility] Work Phone: Summary Purpose Family History Unknown Family Member Name Dates Details Family [...] father Unknown Not Specified Unknown Advance Directives Advance Directive Response Recorded Date/ Time Advance Directives No June 25, 2020 12:57pm Advance Directive Response Recorded Date/ Time Advance Directives No June 25, 2020 11:57am Hospital Course Note MR#: [id number] [facility] Pt. Name: Lesa Golden Admitted: 07/26/2020 [...] verbally reviewed. Site looked at by Vannesa Davidsno RN. * To Dr. Christopher Richardson MD to review * To Dr. Debbie Mac MD to review order sent to [facility] for pft ast tsh onlyLESA GOLDEN is [...] She was recently in the hospital at [facility] for Afib and was taken off Metoprolol and started Sotalol 80mg bid. She had a DCC on 09/20. Today she states that she is taking her medications as directed. She does complain of some fatigue. I advised her that the Sotalol may make her feel fatigued but this should resolve in a few weeks. She verbalized understanding. * Reviewed with Arnia Davidson RN * TO Dr. Debbie Mac [...] Primary hypertension Stage 3a chronic kidney disease Chief Complaint lumbar stenosis w/ n erve claudication SSS 3 month f/U (LEFT MESSAGE TO MOVE APPT) SOB, A-fib Reason for Visit Chronic heart failur e with preserved ejection fraction (HFpEF) Hypercholesterolemia Lumbar spondylosis Obstructive sleep apnea Paroxysmal atrial fibrillation Primary hypertension Stage 3a chronic kidney disease Chief Complaint lumbar stenosis w/ n erve claudication SSS 3 month f/U (LEFT MESSAGE TO MOVE APPT) SOB, A-fib Reason for Visit Chronic heart failur e with preserved ejection fraction (HFpEF) Hypercholesterolemia Lumbar spondylosis Obstructive sleep apnea Paroxysmal atrial fibrillation Primary hypertension Stage 3a chronic kidney disease Atrial fibrillation with RVR Chronic heart failure with preserved ejection fraction (HFpEF) Stage 3a chronic kidney disease Chief Complaint lumbar stenosis w/ n erve claudication SSS 3 month f/U (LEFT MESSAGE TO MOVE APPT) SOB, A-fib Amb Documentation hospital follow up Reason for Visit Chronic heart failur e with preserved ejection fraction (HFpEF) Hypercholesterolemia Lumbar spondylosis Obstructive sleep apnea Paroxysmal atrial fibrillation Primary hypertension Stage 3a chronic kidney disease Chronic heart failure with preserved ejection fraction (HFpEF) Stage 3a chronic kidney disease Atrial fibrillation with RVR Chronic heart failure with preserved ejection fraction (HFpEF) Hypercholesterolemia Lumbar spondylosis Obstructive sleep apnea Paroxysmal atrial fibrillation Primary hypertension Stage 3a chronic kidney disease Hx of hiatal hernia Nausea & vomiting Reason for Referral Specialty Diagnoses / Procedures Referred By Awaac t Referred To Contact Cardiology Diagnoses Chronic diastolic heart failure (CMS/HCC) Essential hypertension, benign Dyspnea, unspecified type Procedures Transthoracic Echo (TTE) Complete HI ECHO TRANSTHORC R-T 2D W/WO M-MODE REC F-UP/LMTD HI DOP ECHOCARD COLOR FLOW VELOCITY MAPPING HI DOP ECHOCARD PULSE WAVE W/SPECTRAL F-UP/LMTD STD Debbie Mac MD [address] [place] [address] [address], [address] [address] [address] [place] [phone] Referral ID Status Reason Start Date Expiration Date Visits Requested Visits Authorized [id number] Pending Review Perform Procedure 11/27/2023 1 1 Specialty Diagnoses / Procedures Referred By Awaac t Referred To Contact Cardiology Diagnoses Persistent atrial fibrillation (CMS/HCC) 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) Chronic diastolic heart failure (CMS/HCC) Essential hypertension, benign Procedures Follow Up In Cardiology Debbie Mac MD [address] [place] [address] 2, [address] [address] Referral ID Status Reason Start Date Expiration Date V isits Requested Visits Authorized [id number] Authorized 05/31/2023 11/27/2023 1 1 Specialty Diagnoses / Procedures Referred By Ashtyn t Referred To Contact Diagnoses Persistent atrial fibrillation (CMS/HCC) 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 DATE CREATED AUTHOR AUTHOR'S ORGANIZ ATION 12/28/2022 [facility] DATE CREATED AUTHOR AUTHOR'S ORGANIZ ATION 01/04/2023 [facility] DATE CREATED AUTHOR AUTHOR'S ORGANIZ ATION 01/30/2023 [employer] DATE CREATED AUTHOR AUTHOR'S ORGANIZ ATION 03/09/2023 [facility] DATE CREATED AUTHOR AUTHOR'S ORGANIZ ATION 09/10/2023 [facility] DATE CREATED AUTHOR AUTHOR'S ORGANIZ ATION 12/27/2023 [facility] DATE CREATED AUTHOR AUTHOR'S ORGANIZ ATION 01/16/2024 [facility] DATE CREATED AUTHOR AUTHOR'S ORGANIZ ATION 01/23/2024 [facility] DATE CREATED AUTHOR AUTHOR'S ORGANIZ ATION 01/23/2024 [facility] Sleeve Setter Teams (unrecognized sec tion and content) Team Status: Inactive Member Role Status Dates Chester العلي , DO Primary Care Provider Active Debbie Mac MD Attending Provider Active Team Status: Active Member Role Status Dates Chester العلي , DO Primary Care Provider Active Team [...] Jay Ceja , DO Admit Provider, Attending Rekha caicedo Active Team Status: Inactive Member Role Status Dates Chester العلي , DO Primary Care Provider Active Luis Lennon , DO Emergency Provider Active Jay Ceja , DO Admit Provider Active Anival Easton MD Attending Provider Active Team Status: Active Member Role Status Dates Chester العلي , DO Primary Care Provider Active FEROZ Cuevas-Kathie Emergency Provider Active Jay Ceja , DO Admit Provider, Attending Pr ovider Active Team Status: Inactive Member Role Status Dates Chester العلي , DO Primary Care Provider Active FEROZ Cuevas-Kathie Emergency Provider Active Jay Ceja , DO Admit Provider Active Stephanie Bennett RN Other Provider Active Javed Dee , DO Other Provider Active Jimena Smith MD Other Provider Active Christopher Richardson MD Other Provider Active Debbie Mac MD Referring Provider, Other Prov ider Active Kenny Porter MD Other Provider Active Dee Quach APRN Other Provider Active Bety Haile MD Other Provider Active Anoop Zhang MD Other Provider Active Isra Pedro MD Other Provider Active Cristiana Dior , [facility]- Other Provider Active Yessy Ackerman MD Other Provider Active Sam Dukes , DO Attending Provider Active Team Status: Inactive Member Role Status Dates Chester العلي , DO Primary Care Provider, Attending Pr ovider Active Team Status: Inactive Member Role Status Dates Chester العلي , DO Primary Care Provider Active Wilbur Watson , Attending Provider Active Production Tester Relationship Specialty Start Date End Date Chester العلي, DO [address] [place] [address] PCP - General 08/20/99 Production Tester Relationship Specialty Start Date End Date Chester العلي DO [address] [facility] [place] [address] PCP - General Internal Medicine 08/09/23 Production Tester Relationship Specialty Start Date End Date Chester العلي DO [address] [facility] [place] [address] PCP - General Internal Medicine 08/09/23 Team [...] Attending Provider Active Start: 2023 End: 2023 Production Tester Relationship Specialty Start Date End Date Chester العلي DO [address] [place] [address] [address] [facility] [place] [address] PCP - General Internal Medicine 08/09/23 Debbie Mac MD [facility] [facility] 2, [facility] [address] [place] [address] Consulting Physician Cardiology 09/10/23 Team Status: Inactive Member Role Status Dates Chester العلي DO Primary Care Provider Active Start: September 24, 2023 End: September 24, 2023 Debbie Mac MD Attending Provider Active Start: September 24, 2023 End: September 24, 2023 Team Status: Inactive Member Role Status Dates Chetser العلي DO Primary Care Provider Active Start: [...] Status Dates Chester العلي DO Primary Care Provide r, Attending Provider Active Start: November 27, 2023 End: November 27, 2023 Team Status: Active Member Role Status Dates Chester العلي DO Primary Care Provider Active Start: January 18, 2024 Vic Mendez PA-C Emergency Provider Active Start: January 18, 2024 Izzy Capps MD Admit Provider, Atte nding Provider Active Start: January 18, 2024 Stephanie Bennett RN Other Provider Active Star t: January 18, 2024 Javed Dee DO Other Provider Active Start : January 18, 2024 Jimena Smith MD Other Provider Active Start: January 18, 2024 Christopher Richardson MD Other Provider Active Start: January 18, 2024 Debbie Mac MD Other Provider Active St art: January 18, 2024 Kenny Porter MD Other Provider Active Start: January 18, 2024 Dee Quach APRN Other Provider Active Start : January 18, 2024 Bety Haile MD Other Provider Active Start: M ay 2023 Anoop Zhang MD Other Provider Active Start: January 18, 2024 Isra Pedro MD Other Provider Active Start: M ay 2023 Cristiana Dior , [facility]- Other Provider Active Sta rt: January 18, 2024 Team Status: Inactive Member Role Status Roberto العلي DO Primary Care Provider Active Start: January 18, 2024 End: January 20, 2024 Vic Mendez PA-C Emergency Provider Active Start: January 18, 2024 End: January 20, 2024 Izzy Capps MD Admit Provider, Atte nding Provider Active Start: January 18, 2024 End: January 20, 2024 Stephanie Bennett RN Other Provider Active Star t: January 18, 2024 End: January 20, 2024 Javed Dee DO Other Provider Active Start : January 18, 2024 End: January 20, 2024 Jimena Smith MD Other Provider Active Start: January 18, 2024 End: January 20, 2024 Christopher Richardson MD Other Provider Active Start: January 18, 2024 End: January 20, 2024 Debbie Mac MD Other Provider Active St art: January 18, 2024 End: January 20, 2024 Kenny Porter MD Other Provider Active Start: January 18, 2024 End: January 20, 2024 Dee Quach APRN Other Provider Active Start : January 18, 2024 End: January 20, 2024 Bety Haile MD Other Provider Active Start: Elvira tang 2023 End: January 20, 2024 Anoop Zhang MD Other Provider Active Start: January 18, 2024 End: January 20, 2024 Isra Pedro MD Other Provider Active Start: Elvira tang 2023 End: January 20, 2024 Cristiana Dior , [facility]- Other Provider Active Sta rt: January 18, 2024 End: January 20, 2024 Production Tester Relationship Specialty Start Date End Date Chester العلي DO [address] [place] [address] PCP - General Internal Medicine 08/09/23 Debbie Mac MD [facility] [address] [place], [place] [id number] Consulting Physician Cardiology 09/10/23 Team Status: Active Member Role Status Dates Chester العلي DO Primary Care Provider Active Start: January 21, 2024 MICHAEL Joseph Attending Provider Active St art: January 21, 2024 Team Status: Inactive Member Role Status Dates Chester العلي DO Primary Care Provide r, Attending Provider Active Start: January 28, 2024 End: January 28, 2024 Goals (unrecognized section and content) Goals may [...] 4m Specialty Diagnoses / Procedures Referred By [place]le[place] t Referred To Contact Diagnoses Persistent atrial fibrillation (CMS/HCC) 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) Procedures ECG 12 Lead Debbie Mac MD [address] [place] [address] [address], [address] [address] Referral ID Status Reason Start Date Expiration Date V isits Requested Visits Authorized [id number] Pending Review 05/31/2023 11/27/2023 1 1 Specialty Diagnoses / Procedures Referred By Contac t Referred To Contact Cardiology Diagnoses Chronic diastolic heart failure (CMS/HCC) Essential hypertension, benign Dyspnea, unspecified type Procedures Transthoracic Echo (TTE) Complete HI ECHO TRANSTHORC R-T 2D W/WO M-MODE REC F-UP/LMTD HI DOP ECHOCARD COLOR FLOW VELOCITY MAPPING HI DOP ECHOCARD PULSE WAVE W/SPECTRAL F-UP/LMTD STD Debbie Mac MD [address] [place] [address] 2, [address] [address] [address] [place] [id number] Referral ID Status Reason Start Date Expiration Date Visits Requested Visits Authorized [id number] Authorized Perform Procedure 11/27/2023 1 1 Reason Comments Follow-up 4 month Specialty Diagnoses / Procedures Referred By [place] Referred To Contact Cardiology Diagnoses Persistent atrial fibrillation (CMS/HCC) 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) Chronic diastolic heart failure (CMS/HCC) Essential hypertension, benign Procedures Follow Up In Cardiology Debbie Mac MD [address] [place] [address] [address], [address] [address] Referral ID Status Reason Start Date Expiration Date V isits Requested Visits Authorized [id number] Authorized 05/31/2023 11/27/2023 1 1 Reason Comments ekg visit Specialty Diagnoses / Procedures Referred By [place] Referred To Contact Diagnoses Dyspnea, unspecified type Persistent atrial fibrillation (Multi) Procedures ECG 12 Lead Debbie Mac MD [address] [place] [address] 2, [address] [address] Referral ID Status Reason Start Date Expiration Date V isits Requested Visits Authorized [id number] Authorized 01/17/2024 01/16/2025 1 1 FOR RECORDS PERTAINING TO PATIENTS [...] BE BASED ON THE PRIMARY CLINICAL RECORDS. [facility] [email or web address] [facility]. provides no warranty or guarantee of the accuracy or completeness of information in this document.
--- NOTE | 2024-02-08 08:58 | P.DS_ITS ---
<Statement entered by Keira Gandhi DO - 02/08/24 13:08> This documentation has been reviewed and approved. I have also seen and examined patient at the time of discharge and agree to discharge home today with close follow up with her railroad cook at [facility] to discuss ECHO results. DS: Providers Provider Date of admission: 02/07/24 15:25 Primary care physician: Chester Mehta DO Consults: 02/07/24 16:50 Consult to Cardiology Routine Reason for consultation: Refractory A-fib w/ RVR Has provider been notified: Yes Discharging clinician: Stephanie Cavazos DS: Diagnosis Discharge Diagnosis (1) Atrial fibrillation with RVR: (2) Elevated troponin I level: (3) Leukocytosis: Qualifiers: Leukocytosis type: unspecified Qualified Code(s): D72.829 - Elevated white blood cell count, unspecified (4) Diaphragmatic hernia: (5) Lumbar stenosis with neurogenic claudication: (6) High cholesterol: (7) Hypertension: Qualifiers: Hypertension type: primary hypertension Qualified Code(s): I10 - Essential (primary) hypertension (8) Depression: (9) Diastolic heart failure: DS: Summary Hospital Course Hospital Course: The patient was admitted in observation for A-fib with RVR. The patient has chronic A-fib and follows closely with cardiology as an outpatient. She has had several adjustments in her rate controlling medications recently due to persistent RVR. The most recent adjustment was made at [facility] after an admission there from 01/17 to 01/20/2024 where her Betapace was increased and her diltiazem was decreased. She was initially treated on this admission with a Cardizem drip. Her case was discussed by telephone with the cardiology [employer] PROFESSOR and immediate release p.o. doses of Cardizem were given with plans to wean off the drip. The patient's heart rate converted to sinus rhythm a couple of hours after her p.o. dose of immediate release Cardizem and she has remained in sinus rhythm since then and the cardizemm gtt was discontinued. The patient's shortness of breath associated with her RVR has completely resolved. A 2D echo obtained on the day of discharge is still pending formal cardiology interpretation, but a preliminary LVEF is stable at 55-60%. As the patient's symptoms have completely resolved she is being discharged home in stable condition with a prescription for Cardizem to be increased to 180 mg daily (per previous dosing prior to 01/18/24). The patient is instructed to follow-up with her outpatient railroad cook as soon as possible to discuss further rate control measures. She is instructed to return to the ED if persistent tachycardia or s hortness of breath recur. Time Spent with Patient Time attestation: Total time spent providing and/or coordinating discharge services: Time spent: greater than 30 minutes Specific discharge activities: Physical exam, discussion of discharge plan, questions answered. Exam Constitutional Vital Signs, click to edit/add: Last Vital Signs Temp 98.0 F 02/08/24 04:23 Pulse 95 H 02/08/24 06:00 Resp 14 02/08/24 04:23 BP 160/90 H 02/08/24 04:23 Pulse Ox 93 L 02/08/24 04:23 O2 Del Method Room Air 02/07/24 18:55 Common normals: no apparent distress, oriented x3 and alert General appearance: cooperative Orientation/consciousness: Yes awake HENMT Common normals: normocephalic and head/scalp atraumatic Eye Common normals: PERRL, EOMs intact bilaterally, conjunctivae normal and no scleral icterus Neck & C-Spine Common normals: no JVD Respiratory Common normals: normal respiratory effort, no use of accessory muscles and clear to auscultation bilaterally Effort & inspection: able to speak in complete sentences and symmetric chest m ovement Cardio Common normals: no JVD, regular rate, regular rhythm, S1 normal heart sound, S2 normal heart sound, no murmurs and peripheral pulses 2+ throughout GI Common normals: Normal to inspection, nondistended, normoactive bowel sounds present, soft to palpation and non-tender Bladder/kidney exam: bladder normal to palpation Extremity Common normals: normal to inspection, full ROM, normal capillary refill and no pedal edema General: no clubbing and no cyanosis Neuro Common normals: moves all extremities, no focal motor deficits and no sensory deficits noted Speech: speech normal Psych Common normals: mental status grossly normal and activity/motor behavior normal DS: Data Data Completed and Pending Labs on day of discharge: Labs from last 24 hours 02/08/24 02/07/24 02/07/24 04:14 19:10 13:30 WBC 12.9 H RBC 4.37 Hgb 13.6 Hct 40.7 MCV 93.1 MCH 31.1 MCHC 33.4 RDW 13.9 Plt Count 204 MPV 10.4 Neut % (Auto) 86.8 H Lymph % (Auto) 6.7 L Barton % (Auto) 4.6 Eos % (Auto) 0.2 L Baso % (Auto) 0.1 L Neut # (Auto) 11.2 H Lymph # (Auto) 0.9 L Barton # (Auto) 0.6 Eos # (Auto) 0.0 Baso # (Auto) 0.0 Abs Immat Gran (auto) 0.21 H Imm/Tot Granulo (auto) 1.6 H Sodium 135 L Potassium 4.6 Chloride 103 Carbon Dioxide 27.1 Anion Gap 9.5 BUN 30.0 H Creatinine 0.82 Est GFR ( Amer) >60 Est GFR (Non-Af Amer) >60 BUN/Creatinine Ratio 36.6 Glucose 122 H Calcium 9.0 Total Bilirubin 0.7 0.7 Direct Bilirubin 0.2 AST 20 19 ALT 32 38 Alkaline Phosphatase 85 107 Troponin I High Sens 50.2 NT-Pro-B Natriuret Pep 1679.0 Total Protein 5.8 L 6.3 L Albumin 2.8 L 3.1 L Globulin 3.0 3.2 Albumin/Globulin Ratio 0.9 1.0 Lipase 66.0 Urine Color Yellow Urine Clarity Clear Urine pH 6.0 Ur Specific [place] >=1.030 A Urine Protein Trace Urine Glucose (UA) Negative Urine Ketones Negative Urine Occult Blood Negative Urine Nitrite Negative Urine Bilirubin Negative Urine Urobilinogen 1.0 Ur Leukocyte Esterase Negative 02/07/24 11:55 WBC 18.4 H RBC 4.94 Hgb 15.3 Hct 46.3 MCV 93.7 MCH 31.0 MCHC 33.0 RDW 14.1 Plt Count 260 MPV 10.1 Neut % (Auto) 87.3 H Lymph % (Auto) 5.4 L Barton % (Auto) 5.4 Eos % (Auto) 0.2 L Baso % (Auto) 0.1 L Neut # (Auto) 16.1 H Lymph # (Auto) 1.0 L Barton # (Auto) 1.0 H Eos # (Auto) 0.0 Baso # (Auto) 0.0 Abs Immat Gran (auto) 0.29 H Imm/Tot Granulo (auto) 1.6 H Sodium 137 Potassium 4.6 Chloride 104 Carbon Dioxide 25.4 Anion Gap 12.2 BUN 35.0 H Creatinine 1.03 H Est GFR ( Amer) >60 Est GFR (Non-Af Amer) 51 L BUN/Creatinine Ratio 34.0 Glucose 137 H Calcium 9.3 Total Bilirubin Direct Bilirubin AST ALT Alkaline Phosphatase Troponin I High Sens 53.3 H* NT-Pro-B Natriuret Pep Total Protein Albumin Globulin Albumin/Globulin Ratio Lipase Urine Color Urine Clarity Urine pH Ur Specific [place] Urine Protein Urine Glucose (UA) Urine Ketones Urine Occult Blood Urine Nitrite Urine Bilirubin Urine Urobilinogen Ur Leukocyte Esterase Discharge Plan Discharge Disposition: Home, Self-Care Condition: Fair Discharge Medications: New diltiazem HCl 180 mg capsule,extended release 24hr 180 mg PO DAILY Qty: 30 0RF Continued atorvastatin 40 mg tablet 40 mg PO .QHS Patient Comments: takes at 6 pm Xarelto 15 mg tablet 15 mg PO .qhs Rx Instructions: must administer with evening meal ropinirole 1 mg tablet 1 mg PO .HS cholecalciferol (vitamin D3) [Vitamin D3] 125 mcg (5,000 unit) tablet 125 mcg PO DAILY calcium 600 mg capsule 600 mg PO QDAY acetaminophen [Tylenol] 325 mg capsule 325 mg PO Q6H PRN (Reason: pain) furosemide 20 mg tablet 20 mg PO .QD fluocinonide 0.05 % solution See Rx Instructions TOPICAL .COMPLEX Rx Instructions: APPLY TO AA ON SCALP TWICE DAILY DURING FLARES topically; escitalopram oxalate 10 mg tablet 10 mg PO .QHS sotalol 120 mg tablet 120 mg PO BID Patient Comments: TAKES IN THE MORNING AND AT 6PM Discontinued diltiazem HCl 120 mg capsule,extended release 24hr 120 mg PO DAILY Activity: increase activity as tolerated Diet: advance to your usual diet Print Language: Monegasque Activity Restrictions/Additional Instructions: - Return to the ED if persistent rapid heartbeat or shortness of breath recur - Follow up with your regular railroad cook as soon as possible Forms: Portal Instructions Follow Up Appointments: SundayFebruary 24 at 2:00pm, Dr. Garcia, [place], [place] [phone]
[2024-02-08] MEDS: DILTIAZEM HCL 180 MG CAP.ER.24H PO (09:09)
[2024-02-08] MEDS: SOTALOL HCL 80 MG TABLET 120 MG PO (09:09)
[2024-02-08] MEDS: FUROSEMIDE 20 MG TABLET PO (09:09)
--- NOTE | 2024-02-08 10:22 | SWNOTE1 ---
Medicare Outpatient Observation Notice reviewed and discussed with patient. Pt. verbalized understanding and signed the form. Original given to patient and copy placed in patient?s chart.
--- NOTE | 2024-02-08 11:17 | CM.NOTE ---
Rounds made with Dr. Gandhi. Dr. Gandhi discusses plan of care and potential discharge after further testing. Lesa verbalizes understanding.
--- NOTE | 2024-02-12 15:05 | CM.NOTE ---
Attempted Discharge follow phone call without success.
== END 2024-02-08 13:03 | disposition home or self-care (01) ==
LOC: ER 13:27 → ICU 20:39
PROVIDERS: Nurse Practitioner; Admitting Provider Family Medicine; Emergency Provider Emergency Medicine; PCP Internal Medicine; Visit Provider Family Medicine
DX: I48.20 Chronic atrial fibrillation, unspecified (principal); R06.02 Shortness of breath; R79.89 Other specified abnormal findings of blood chemistry; D72.829 Elevated white blood cell count, unspecified; K44.9 Diaphragmatic hernia without obstruction or gangrene; E78.00 Pure hypercholesterolemia, unspecified; F32.A Depression, unspecified; I11.0 Hypertensive heart disease with heart failure; I50.32 Chronic diastolic (congestive) heart failure; M48.062 Spinal stenosis, lumbar region with neurogenic claudication; Z79.899 Other long term (current) drug therapy; M46.1 Sacroiliitis, not elsewhere classified
CPT/HCPCS: 36415; 71045; 80048; 80053; 80076; 81003; 83690; 83880; 84484; 85025; 93005; 93306; 96365; 96366; 96376; 99285; G0378; G0463

== ENCOUNTER 2024-02-21 23:27 | Emergency (ER) | payer OTHER, SELFPAY ==
[2024-02-21 23:31] VITALS: BP 135/86; PULSE 87; TEMP 37.1; O2SAT 95; BMI 30.3
--- NOTE | 2024-02-21 23:40 | CT_ITS ---
The [address] [address] Patient Name: AUSTIN GOLDEN MRN: [id number] date: 1940 Sex: F Assigned Patient Location: ER Current Patient Location: .[facility] Accession/Order Number: [id number] Exam Date: 02/21/2024 23:50 Report Date: 02/22/2024 00:57 At the request of: DARRON FIERRO Procedure: CT head/brain wo con EXAM: CT cervical spine wo con, CT head/brain wo con HISTORY: fall/injuy to head/blood thinners COMPARISON: None. TECHNIQUE: Nonenhanced CT imaging of the head and cervical spine was performed with sagittal and coronal reconstructions. Dose reduction techniques were achieved by using automated exposure control and/or adjustment of mA and/or kV according to patient size and/or use of iterative reconstruction technique. FINDINGS: CT ABDOMEN: No intracranial hemorrhage, edema, mass effect or midline shift is seen. Age related diffuse brain atrophy is noted with corresponding prominence of the ventricles and extra-axial CSF spaces. Mild nonspecific periventricular lucencies likely reflect chronic small vessel white matter ischemia. There is a 5 mm chronic lacunar infarct in the right thalamus on image 20 of series 5. There is a largely calcified, rounded 1.3 cm extra-axial lesion overlying the posterior left frontal lobe compatible with an old meningioma. There are prominent dural calcifications along the falx. The calvarium is intact. The paranasal sinuses and mastoid air cells are clear. There is a large left parietal scalp hematoma extending to the vertex. No soft tissue gas or foreign body is seen. CT CERVICAL SPINE: No acute osseous or articular abnormality is seen. The cervical vertebral bodies are normal in height and alignment. There is advanced degenerative disc disease at C4-C7 and T1-T2. Skull base alignment is normal. The articular facets are normally aligned. There is severe degenerative change in the predental space with calcifications in the alar ligament surrounding the odontoid. There is developmental fusion of the right articular facets of C2 and C3. Multilevel facet arthrosis and uncovertebral joint hypertrophy result in multilevel neural foraminal stenosis. On the right, neural foraminal stenosis is fairly severe at C3-C6 and is mild to moderate at C6-C7. On the left, neural foraminal stenosis is severe at C3-C4, mild at C4-C5, fairly severe at C5-C6 and moderate at C6-C7. There is moderate spinal canal stenosis at C5-C6 and C6-C7. Bilateral carotid arterial calcifications are noted. CT/CT head/brain wo con IMPRESSION: 1. Large right parietal scalp hematoma without underlying calvarial fracture or acute intracranial abnormality. Chronic intracranial findings are described above. 2. No acute cervical spine abnormality. Chronic changes are described above. Electronically authenticated by: BIBI BROWN Date: 02/22/2024 00:57
--- NOTE | 2024-02-21 23:40 | CT_ITS ---
The [address] [address] Patient Name: AUSTIN GOLDEN MRN: [id number] date: 1940 Sex: F Assigned Patient Location: ER Current Patient Location: .[facility] Accession/Order Number: [id number] Exam Date: 02/21/2024 23:50 Report Date: 02/22/2024 00:57 At the request of: DARRON FIERRO Procedure: CT cervical spine wo con EXAM: CT cervical spine wo con, CT head/brain wo con HISTORY: fall/injuy to head/blood thinners COMPARISON: None. TECHNIQUE: Nonenhanced CT imaging of the head and cervical spine was performed with sagittal and coronal reconstructions. Dose reduction techniques were achieved by using automated exposure control and/or adjustment of mA and/or kV according to patient size and/or use of iterative reconstruction technique. FINDINGS: CT ABDOMEN: No intracranial hemorrhage, edema, mass effect or midline shift is seen. Age related diffuse brain atrophy is noted with corresponding prominence of the ventricles and extra-axial CSF spaces. Mild nonspecific periventricular lucencies likely reflect chronic small vessel white matter ischemia. There is a 5 mm chronic lacunar infarct in the right thalamus on image 20 of series 5. There is a largely calcified, rounded 1.3 cm extra-axial lesion overlying the posterior left frontal lobe compatible with an old meningioma. There are prominent dural calcifications along the falx. The calvarium is intact. The paranasal sinuses and mastoid air cells are clear. There is a large left parietal scalp hematoma extending to the vertex. No soft tissue gas or foreign body is seen. CT CERVICAL SPINE: No acute osseous or articular abnormality is seen. The cervical vertebral bodies are normal in height and alignment. There is advanced degenerative disc disease at C4-C7 and T1-T2. Skull base alignment is normal. The articular facets are normally aligned. There is severe degenerative change in the predental space with calcifications in the alar ligament surrounding the odontoid. There is developmental fusion of the right articular facets of C2 and C3. Multilevel facet arthrosis and uncovertebral joint hypertrophy result in multilevel neural foraminal stenosis. On the right, neural foraminal stenosis is fairly severe at C3-C6 and is mild to moderate at C6-C7. On the left, neural foraminal stenosis is severe at C3-C4, mild at C4-C5, fairly severe at C5-C6 and moderate at C6-C7. There is moderate spinal canal stenosis at C5-C6 and C6-C7. Bilateral carotid arterial calcifications are noted. CT/CT cervical spine wo con IMPRESSION: 1. Large right parietal scalp hematoma without underlying calvarial fracture or acute intracranial abnormality. Chronic intracranial findings are described above. 2. No acute cervical spine abnormality. Chronic changes are described above. Electronically authenticated by: BIBI BROWN Date: 02/22/2024 00:57
--- NOTE | 2024-02-21 23:42 | ED.FALL1 ---
HPI HPI - Fall General Chief Complaint: Fall Stated Complaint: head injury Time Seen by Provider: 02/21/24 23:40 Source: patient Mode of arrival: ambulance Limitations: no limitations History of Present Illness HPI Narrative: patient fell back striking the back of her head. loss balance. Denies LOC. complains of headache. Denies nausea or dizziness. Denies weakness of her extremities. Has chronic back pain and does not feel her back pain is any different than normal. no hip or rib pain Related Data Home Medications ?Medication ?Instructions ?Recorded ?Confirmed acetaminophen 325 mg capsule 325 mg PO Q6H PRN pain 10/15/23 02/07/24 (Tylenol) atorvastatin 40 mg tablet 40 mg PO .QHS 10/15/23 02/07/24 calcium 600 mg capsule 600 mg PO QDAY 10/15/23 02/07/24 cholecalciferol (vitamin D3) 125 125 mcg PO DAILY 10/15/23 02/07/24 mcg (5,000 unit) tablet (Vitamin D3) rivaroxaban 15 mg tablet (Xarelto) 15 mg PO .qhs 10/15/23 02/07/24 ropinirole 1 mg tablet 1 mg PO .HS 10/15/23 02/07/24 escitalopram oxalate 10 mg tablet 10 mg PO .QHS 02/07/24 02/07/24 fluocinonide 0.05 % topical See Rx Instructions topical 02/07/24 02/07/24 solution .COMPLEX furosemide 20 mg tablet 20 mg PO .QD 02/07/24 02/07/24 sotalol 120 mg tablet 120 mg PO BID 02/07/24 02/07/24 Previous Rx's ?Medication ?Instructions ?Recorded diltiazem HCl 180 mg 180 mg PO DAILY #30 caps 02/08/24 capsule,extended release 24 hr Allergies Allergy/AdvReac Type Severity Reaction Status Date / Time Sulfa (Sulfonamide Allergy Mild ITCHING Verified 02/21/24 23:38 Antibiotics) fentanyl Allergy Unknown Unknown Verified 02/21/24 23:38 Opioid HPI Opioid Management Most Recent Pain and Opioid Data: Last Pain Scale 3 01/28/24 10:59 Last ORT Total Score 1 02/07/24 15:37 Last ORT Risk Category Low Risk 02/07/24 15:37 Review of Systems ROS Status of ROS 10 or more systems reviewed and unremarkable except as noted in history and below [facility] Medical History (Updated 02/22/24 @ 01:11 by Daniel Berman MD) Diastolic heart failure ?I50.30 - Unspecified diastolic (congestive) heart failure (ICD-10) Depression ?F32.A - Depression, unspecified (ICD-10) Diaphragmatic hernia ?K44.9 - Diaphragmatic hernia without obstruction or gangrene (ICD-10) Lumbar stenosis with neurogenic claudication ?M48.062 - Spinal stenosis, lumbar region with neurogenic claudication (ICD-10) Lumbar spondylosis ?M47.816 - Spondylosis without myelopathy or radiculopathy, lumbar region (ICD-10) Sacroiliitis ?M46.1 - Sacroiliitis, not elsewhere classified (ICD-10) S/P extracorporeal shock wave therapy ?Z98.890 - Other specified postprocedural states (ICD-10) Kidney stone ?N20.0 - Calculus of kidney (ICD-10) Low back pain ?M54.50 - Low back pain, unspecified (ICD-10) Neck pain ?M54.2 - Cervicalgia (ICD-10) Fibromyalgia ?M79.7 - Fibromyalgia (ICD-10) Hiatal hernia ?K44.9 - Diaphragmatic hernia without obstruction or gangrene (ICD-10) SOB (shortness of breath) ?R06.02 - Shortness of breath (ICD-10) High cholesterol ?E78.00 - Pure hypercholesterolemia, unspecified (ICD-10) Hypertension ?I10 - Essential (primary) hypertension (ICD-10) Surgical History Hx laparoscopic cholecystectomy ?Z90.49 - Acquired absence of other specified parts of digestive tract (ICD-10) S/P hernia repair ?Z98.890 - Other specified postprocedural states (ICD-10) ?Z87.19 - Personal history of other diseases of the digestive system (ICD-10) Social History Highest level of school completed/degree received: high school graduate Exam Constitutional Vital Signs, click to edit/add: Last Vital Signs Temp 98.7 F 02/21/24 23:31 Pulse 104 H 02/22/24 00:49 Resp 18 02/22/24 00:49 BP 126/71 02/22/24 00:49 Pulse Ox 93 L 02/22/24 00:49 O2 Del Method Room Air 02/22/24 00:49 Common normals: no apparent distress, average body habitus, oriented x3, no limitations, healthy appearing, alert and well nourished [facility] Head images: 1. abrasion. mild swelling. no lac Eye Common normals: PERRL and EOMs intact bilaterally Respiratory Common normals: normal respiratory effort, no retractions, no use of accessory muscles and clear to auscultation bilaterally Cardio Common normals: regular rate, regular rhythm, S1 normal heart sound and S2 normal heart sound GI Common normals: Normal to inspection, nondistended, normoactive bowel sounds present, soft to palpation and non-tender Extremity Common normals: normal to inspection and full ROM Neuro Common normals: oriented x3, CN's II-XII intact bilaterally, moves all extremities and no focal motor deficits Psych Appearance: grossly normal Course Vital Signs Vital signs: Vital Signs Temperature 98.7 F 02/21/24 23:31 Pulse Rate 87 02/21/24 23:31 Respiratory Rate 20 02/21/24 23:31 Blood Pressure 135/86 02/21/24 23:31 Pulse Oximetry 95 02/21/24 23:31 Oxygen Delivery Method Room Air 02/21/24 23:31 Temperature 98.7 F 02/21/24 23:31 Pulse Rate 104 H 02/22/24 00:49 Respiratory Rate 18 02/22/24 00:49 Blood Pressure 126/71 02/22/24 00:49 Pulse Oximetry 93 L 02/22/24 00:49 Oxygen Delivery Method Room Air 02/22/24 00:49 MDM - Fall MDM Narrative Medical decision making narrative: presents after fall and striking her head. No neuro deficits. CTs neg for acute findings except for hematoma patient informed of the above and discharged back to detention Imaging Data Chest x-ray: Radiologist's impression: ITS Impressions Cervical Spine CT 02/21/24 23:40 IMPRESSION: 1. Large right parietal scalp hematoma without underlying calvarial fracture or acute intracranial abnormality. Chronic intracranial findings are described above. 2. No acute cervical spine abnormality. Chronic changes are described above. Electronically authenticated by: BIBI BROWN Date: 02/22/2024 00:[address] 02/21/24 23:40 IMPRESSION: 1. Large right parietal scalp hematoma without underlying calvarial fracture or acute intracranial abnormality. Chronic intracranial findings are described above. 2. No acute cervical spine abnormality. Chronic changes are described above. Electronically authenticated by: BIBI BROWN Date: 02/22/2024 00:57 Discharge Plan Discharge Stand Alone Forms: Portal Instructions Chief Complaint: Fall Clinical Impression: Head injury Patient Disposition: Home, Self-Care Prescriptions / Home Meds: No Action atorvastatin 40 mg tablet 40 mg PO .QHS Patient Comments: takes at 6 pm Xarelto 15 mg tablet 15 mg PO .qhs Rx Instructions: must administer with evening meal ropinirole 1 mg tablet 1 mg PO .HS cholecalciferol (vitamin D3) [Vitamin D3] 125 mcg (5,000 unit) tablet 125 mcg PO DAILY calcium 600 mg capsule 600 mg PO QDAY acetaminophen [Tylenol] 325 mg capsule 325 mg PO Q6H PRN (Reason: pain) furosemide 20 mg tablet 20 mg PO .QD fluocinonide 0.05 % solution See Rx Instructions TOPICAL .COMPLEX Rx Instructions: APPLY TO AA ON SCALP TWICE DAILY DURING FLARES topically; escitalopram oxalate 10 mg tablet 10 mg PO .QHS sotalol 120 mg tablet 120 mg PO BID Patient Comments: TAKES IN THE MORNING AND AT 6PM diltiazem HCl 180 mg capsule,extended release 24hr 180 mg PO DAILY Qty: 30 0RF Print Language: Romansh Instructions: Head Injury (ED) Referrals: Chester Mehta DO [Primary Care Provider] - 1 week
--- NOTE | 2024-02-21 23:42 | PC.NURSE ---
Skin tear to left forearm, area cleansed with Hibicleanse and band aid applied. Contusion to back of head, ice applied.
[2024-02-21] MEDS: ACETAMINOPHEN 500 MG TABLET 1000 MG PO (23:59)
--- OUTSIDE RECORDS SUMMARY | 2024-02-22 00:29 | XMS_ITS ---
Patient Summarization (C-CDA 2.1 CCD) Created on: February 22, 2024 Lesa Golden : 1940 Sex: Female Author Organization Sample organization Care Team Providers Care Ophthalmic Technician Apprentice Name Role Phone CHESTER العلي Primary Care Unavailable WOO, JELANI Attending Unavailable WOO, JELANI Admitting Unavailable SELF, REFERRED Referring Unavailable [place] Procedure Practitioner Unavailab SANJUANA Maier AM Surgeon Unavailable TANNER HERRERA Surgeon Unavailable [place] Procedure Practitioner Unavailab shant SORIA, JELANI Surgeon Unavailable [place] Procedure Practitioner Unavailab le Chester العلي E Unavailable Unavailable Unavailable DO Chester العلي Primary Care Provider MD Debbie Mac Attending Provider John Mims Unavailable [phone] DO Chester العلي Primary Care Provider MD John Mims Attending Provider MD Debbie Mac Attending Provider MD John Mims Referring Provider DO Chester العلي Primary Care Provider MD Debbie Mac Attending Provider DO Chester العلي Primary Care Provider MD Debbie Mac Attending Provider DO Luis Lennon Emergency Provider DO Jay Ceja Admit Provider DO Jay Ceja Attending Provider MD Anival Easton Attending Provider [phone] DO Chester العلي Primary Care Provider MD Debbie Mac Attending Provider VINCENT Rolon Emergency Provider DO Jay Ceja Attending Provider ROSA Bennett Other Provider Unavailable DO Javed Dee Other Provider MD Jimena Smith Other Provider MD Christopher Richardson Other Provider MD Debbie Mac Referring Provider MD Kenny Porter Other Provider VIRGINIA Brooke Other Provider MD Bety Haile Other Provider MD Mary Zhangammalison Eastondina Other Provider MD Isra Pedro Other Provider Barby [facility] Cristiana Rosen Other Provider MD Yessy Ackerman Other Provider DO Sam Dukes Attending Provider [phone] Chester العلي Unavailable DO Chester العلي Primary Care Provider DO Luis Lennon Emergency Provider Unavailab DO Jay Milligan Admit Provider MD Anival Easton Attending Provider [phone] VINCENT Rolon Emergency Provider ROSA Bennett Other Provider Unavailable DO Javed Dee Other Provider MD Jimena Smith Other Provider MD Christopher Richardson Other Provider MD Debbie Mac Referring Provider MD Kenny Porter Other Provider Jose David Quach APRN Dee Gomez Other Provider MD Bety Haile Other Provider MD Anoop Zhang Other Provider MD Isra Pedro Other Provider Barby [facility] Cristiana Rosen Other Provider MD Yessy Ackerman Other Provider [phone] DO Sam Dukes Attending Provider Tyson, DO Briggs Attending Provider Rachel Larios Unavailable DO Wilbur Watson Attending Provider DO Chester العلي Primary Care Provider DO Jay Ceja Admit Provider MD Debbie Mac Attending Provider Tyson, Dr. Chester Sanders Referring Aleshia العلي, Dr. Chester Sanders Primary Care Aleshia quiroz Ines, Dr. French Carrillo Attending Un available BALL, [...] Unavailable BALL, DR BRIGGS Primary Care Unavailable HARRIET, DR RACHEL Hahn Attending Unavailable LARIOS, DR RACHEL aHhn Consulting Damien العلي, DO Briggs Primary Care Provider DO Wilbur Watson Attending Provider Jose, Dr. Chen Referring Unavaila ble Trabnuria, Dr. Chen Attending Unavaila ble Tyson, Dr. Chester Sanders Primary Care Unavai labshant Mac, Dr. Chen Referring Unavaila ble Ball, Dr. Chester Sanders Primary [facility] Unavai labshant Mac, Dr. Chen Attending Unavaila ble Jose, Dr. Chen Referring Unavaila ble MITCHELL, MD MAXWELL MOSS Attending Unavailabl e Tyson, Dr. Chester Sanders Primary [facility] Aristeoi richie العلي, Dr. Chester Sanders [facility] Aleshia Smith, Dr. Jimena Reynolds Attending Yasmeen vailaanselmo Smith, Dr. Jimena Reynolds Attending Yasmeen vailable Tyson, Dr. Chester Sanders [facility] Yasmeenvai labshant Smith, Dr. Jimena Reynolds Attending Yasmeen vailaanselmo العلي, Dr. Chester Sanders Primary [facility] Yasmeenvakrysten العلي, Dr. Chester Sanders Primary [facility] Yasmeenvai richie العلي, Dr. Chester Sanders Primary [facility] Yasmeenvai labshant Mac, Dr. Chen Attending Unavaila ble Jose, Dr. Chen Referring Unavaila ble Tyson, Dr. Chester Sanders Primary [facility] Unavai labshnat العلي, Dr. Chester Sanders [facility] Unavai labshant Mac, Dr. Chen Attending Unavaila ble Tyson, Dr. Chester Sanders [facility] Yasmeenvai labshant العلي, Dr. Chester Sanders [facility] Yasmeenvai richie Mac, Dr. Chen Attending Unavaila anselmo العلي, Dr. Chester Sanders [facility] Aleshia العلي, Dr. Chester Sanders [facility] Aleshia Smith, Dr. Jimena Reynolds Attending Yasmeen vailaanselmo العلي, Dr. Chester Sanders [facility] Aleshia Smith, Dr. Jimena Reynolds Attending Yasmeen vailaanselmo العلي, Dr. Chester Sanders [facility] Unavai lable Ball, Dr. Chester Sanders [facility] Unavai lable Traboulssi, Dr. Chen Attending Unavaila ble Ball, Dr. Chester Sanders [facility] Unavai lable Traboulssi, Dr. Chen Attending Unavaila ble Ball, Dr. Chester Sanders [facility] Unavai lable Traboulssi, Dr. Chen Attending Unavaila ble Ball, Dr. Chester Sanders [facility] Unavai lable Traboulssi, Dr. Chen Attending Unavaila ble Ball, Dr. Chester Sanders [facility] Unavai lable Traboulssi, Dr. Chen Attending Unavaila ble Traboulssi, Dr. Chen Referring Unavaila ble Ball, Dr. Chester Sanders [facility] Unavai lable Traboulssi, Dr. Chen Attending Unavaila ble Ball, Dr. Chester Sanders [facility] Unavai lable Traboulssi, Dr. Chen Attending Unavaila ble Traboulssi, Dr. Chen Referring Unavaila ble Traboulssi, Dr. Chen Referring Unavaila ble Ball, Dr. Chester Sanders [facility] Unavai lable Traboulssi, Dr. Chen Attending Unavaila ble Traboulssi, Dr. Chen Referring Unavaila ble Ball, Dr. Chester Sanders [facility] Unavai lable Traboulssi, Dr. Chen Attending Unavaila ble DO Chester العلي Primary Care Provider [phone] MD Debibe Mac Attending Provider Chester العلي DO Primary Care Provider Sabina Garcia Unavailable Chester العلي DO Primary Care Provider DEBBIE MAC Referring Unavailable CHESTER العلي Primary Care Unavailable DO Chester العلي Primary Care Provider MD Debbie Mac Attending Provider Chester العلي DO Primary Care Provider Debbie Mac MD Unavailable DO Chester العلي Primary Care Provider MD Debbie Mac Attending Provider MD Yesica Astudillo Attending Provider MD Christopher Richardson Attending Provider DESMOND MACIAS Attending Unavailable Ball DO Chester Primary Care Provider VINCENT Mendez Emergency Provider MD Izzy Capps Admit Provider MD Izzy Capps Attending Provider ROSA Bennett Other Provider Unavailable DO Javed Dee Other Provider MD Jimena Smith Other Provider MD Christopher Richardson Other Provider MD Debbie Mac Other Provider MD Kenny Porter Other Provider VIRGINIA Quach Other Provider MD Bety Haile Other Provider MD Anoop Zhang Other Provider MD Isra Pedro Other Provider Barby [facility] Cristiana Rosen Other Provider [phone] Chester العلي DO E Primary Care Provider MOESSKrysten MOURHAF Attending Unavailable BALL, CHESTER E Primary Care Unavailable TRABOULSSI, MOURHAF Attending Unavailable TRABOULSSI, MOURHAF Referring Unavailable BALL, CHESTER E Primary Care Unavailable TRABOULSSI, MOURHAF Attending Unavailable TRABOULSSI, MOURHAF Referring Unavailable BALL, CHESTER E Primary Care Unavailable TRABOULSSI, MOURHAF Referring Unavailable BALL, CHESTER E Primary Care Unavailable Wilda MUIR, Yesica Arcos Attending Unavailable Wilda MUIR, Yesica Arcos Attending Unavailable Wilda MUIR, Yesica Arcos Attending Unavailable DO Chester العلي Attending Provider Wilbur Watson Admitting Unavailable Ball, Chester Primary Care Unavailable Wilbur Watson Attending Unavailable Ball, Chester Admitting Unavailable Ball, Chester Attending Unavailable Ball, Chester Primary Care Unavailable Traboulssi, Moollief Attending Unavailable Traboulssi, Mourhaf Admitting Unavailable Ball, Chester Primary Care Unavailable Traboulssi, Mourhaf Admitting Unavailable Traboulssi, Mobrinahaf Attending Unavailable Ball, Chester Primary Care Unavailable Izzy Capps Attending Unavailable Stephanie Bennett Consulting Unavailable Jefry, Izzy Admitting Unavailable Ball, Chester Primary Care Unavailable Javed Dee Consulting Unavailable Smith, Jimena Consulting Unavailable Christopher Richardson Consulting Unavail able Traboulssi, Mourchef Consulting Unavailable Kenny Porter Consulting Unavailab Dee Jacobs Consulting Unavailable HaileBety alvarenga Consulting Unavailable VicenteAnoop alvarengaeb Consulting Unavailab Isra Lutz Consulting Unavailable Cristiana Dior Consulting Unavailable Traboulssi, Mourhaf Admitting Unavailable Traboulssi, Mourhaf Attending Unavailable Ball, Chester Primary Care Unavailable Giedraitis, Andrius Admitting Unavailable Giedraitis, Andri Attending Unavailable Ball, Chester Primary Care Unavailable Christopher Richardson Admitting Unavail able Christopher Richardson Attending Unavail able Ball, Chester Primary Care Unavailable Ball, Chester Primary Care Unavailable Wilbur Watson Attending Unavailable Wilbur Watson Admitting Unavailable Allergies Allergy Classification Reported Allergen(s) Allergy Type Date of Onset Reaction(s) Facility Opioid Agonists (1 source) fentaNYL; Translations: [FENTANYL] Drug Allergy 04-28-20 [facility] 3 Repository Sulfonamides (antibiotic) (1 source) Sulfonamides (Antibiotic); Translations: [SULFA (SULFONAMIDE ANTIBIOTICS)] Drug Allergy 04-28-20 [facility] 3 Repository (1 source) apixaban Drug Allergy 07-26-20 20 [facility] Repository (20 sources) Sulfonamides (Antibiotic); Translations: [SULFA (SULFONAMIDE ANTIBIOTICS)] Drug allergy (disorder) 07-29-20 13 Itching [facility] Repository (20 sources) Sulfonamides (Antibiotic); Translations: [Sulfa Drugs] Allergy to drug (finding) -[facility] DO Work Phone: (20 sources) fentaNYL; Translations: [fentanyl] Drug Allergy 08-22-19 22 Other [facility] (20 sources) Sulfonamides (Antibiotic) Propensity to adverse reactions Unknown [employer] Other (1 source) fentaNYL Drug Allergy 08-06-20 [facility] Repository (1 source) patient allergy list reviewed by nurse or physicia Propensity to adverse reactions 04-15-20 19 Comment:Done [employer] Other (13 sources) Substance with sulfonamide structure and antibacterial mechanism of action (substance) Drug allergy 04-28-20 23 Unknown [employer] Other (1 source) fentaNYL Drug Allergy 02-15-20 24 [facility] Repository (1 source) Sulfonamides (Antibiotic) Drug allergy (disorder) 02-15-20 24 [facility] Repository Encounters Encounter Date Encounter Type Care Provider Facility Start: 02-18-2024 End: 02-18-2024 Patient encounter procedure DO Chester العلي Work Phone: [facility]CT [facility] [place] Work Phone: Start: 02-18-2024 End: 02-18-2024 ambulatory DO Chester Ball Work Phone: [facility] Work Phone: Start: 02-15-2024 End: 02-15-2024 ambulatory DO Chester Ball Work Phone: [facility] Work Phone: Start: 02-15-2024 End: 02-15-2024 Patient encounter procedure DO Chester Ball Work Phone: [facility] Work Phone: Start: 02-08-2024 Non-patient / Non-visit DO Johnson العلي Work Phone: [facility] Work Phone: Start: 02-07-2024 Non-patient / Non-visit DO Johnson العلي Work Phone: [facility] Work Phone: Start: 01-28-2024 End: 01-28-2024 ambulatory DO Chester العلي Work Phone: [facility] Work Phone: Start: 01-28-2024 End: 01-28-2024 Patient encounter procedure DO Chester العلي Work Phone: [facility] Work Phone: Start: 01-28-2024 End: 01-28-2024 ambulatory Yesica Astudillo MD Facility: [facility] Start: 01-22-2024 End: 01-22-2024 ambulatory [facility] Ambulatory Start: 01-22-2024 End: 01-22-2024 Professional / ancillary services management Chanell Bartlett Cardiology Ecg/Holter [facility] Start: 01-21-2024 Non-patient / Non-visit DO Johnson العلي Work Phone: [facility] Work Phone: Start: 01-18-2024 End: 01-20-2024 Evaluation and management of inpatient DO Chester العلي Work Phone: [facility] [place] [facility] Work Phone: Start: 01-15-2024 End: 01-15-2024 ambulatory DESMOND ASHLEYEIM Not Available Start: 12-17-2023 End: 12-17-2023 ambulatory [facility] Start: 11-28-2023 End: 11-28-2023 ambulatory [facility] Ambulatory Start: 11-27-2023 End: 11-27-2023 ambulatory DO Chester العلي Work Phone: [facility] Work Phone: Start: 11-27-2023 End: 11-27-2023 Patient encounter procedure DO Chester Ball Work Phone: [facility] Work Phone: Start: 11-22-2023 End: 11-22-2023 Patient encounter procedure DO Chester Ball Work Phone: [facility]-Pacemaker Check Start: 11-22-2023 End: 11-22-2023 ambulatory DO Chester Ball Work Phone: [facility] Work Phone: Start: 11-21-2023 End: 11-21-2023 Patient encounter procedure DO Chester Tyson Work Phone: [facility] [place] Work Phone: Start: 11-21-2023 End: 11-21-2023 ambulatory DO Chester Tyson Work Phone: [facility] Work Phone: Start: 10-15-2023 End: 10-15-2023 ambulatory Yesica Astudillo MD Facility: [facility] Start: 09-24-2023 End: 09-24-2023 Patient encounter procedure DO Chester Tyson Work Phone: [facility]emaker Check Start: 09-24-2023 End: 09-24-2023 ambulatory DO Chester Tyson Work Phone: [facility] Work Phone: Start: 09-19-2023 End: 09-19-2023 Office outpatient visit 25 minutes Debbie Mac MD Work Phone: [facility] Comment on above: Persistent atrial fi brillation (CMS/HCC) (Primary Dx); 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-Pacemaker Check Start: 2023 End: 2023 ambulatory DO Chester العلي Work Phone: [facility] Work Phone: Start: 08-24-2023 End: 08-24-2023 ambulatory Chester العلي Other [employer] Other Start: 08-24-2023 Telephone encounter Chester العلي [facility] Start: 08-21-2023 End: 08-22-2023 ambulatory [facility] Start: 08-21-2023 End: 08-21-2023 Subsequent hospital visit by physician Chanell Bartlett Echo/Vasc Room 2 [facility] Comment on above: Chronic diastolic he art failure (CMS/HCC); Essential hypertension, benign; Dyspnea, unspecified type Start: 08-19-2023 End: 08-19-2023 ambulatory Sabina Garcia Other [employer] Other Start: 08-19-2023 Patient encounter procedure Sabina Garcia [facility] Start: 08-19-2023 End: 08-19-2023 Patient encounter procedure DO Chester العلي Work Phone: [facility] Work Phone: Start: 07-25-2023 End: 07-25-2023 Patient encounter procedure DO Chester العلي Work Phone: [facility] Work Phone: Start: 06-29-2023 End: 06-29-2023 ambulatory Chester العلي Other [employer] Other Start: 06-29-2023 Nursing evaluation o f patient and report Chester العلي [facility] Start: 06-15-2023 End: 06-15-2023 ambulatory Debbie Mac Facility:[facility] Start: 05-31-2023 End: 05-31-2023 ambulatory [facility] Ambulatory Start: 05-31-2023 End: 05-31-2023 Office outpatient visit 25 minutes Debbie Mac MD Work Phone: [facility] Comment on above: Persistent atrial fi brillation [...] 05-25-2023 End: 05-25-2023 ambulatory Chester العلي Other [employer] Other Start: 05-25-2023 Telephone encounter Chester SIMMONS [facility] Start: 04-20-2023 Rx Renewal Chester Jovani Bal l Work Phone: [facility] 250 DO Work Phone: Start: 04-18-2023 Rx Renewal [facility] E [facility] Work Phone: Start: 04-12-2023 End: 04-12-2023 ambulatory Chester العلي Other [employer] Other Start: 04-12-2023 Telephone encounter Chester Joseph [facility] Start: 04-10-2023 End: 04-10-2023 ambulatory Chester Tyson Other [employer] Other Start: 04-10-2023 Telephone encounter Chester SIMMONS [facility] Start: 03-21-2023 End: 03-21-2023 ambulatory Chester Tyson Other [facility] [employer] Other Start: 03-21-2023 Patient encounter procedure Chester العلي [facility] Start: 03-13-2023 End: 03-13-2023 ambulatory Chester العلي Other [facility] [employer] Other Start: 03-13-2023 Telephone encounter Chester Tyson العلي [facility] Start: 03-05-2023 Telephone encounter Chester Tyson العلي [facility] Start: 03-05-2023 End: 03-05-2023 Admission to same day surgery center DO Chester العلي Work Phone: [facility] [place] Start: 03-05-2023 End: 03-05-[address] Chester العلي [facility] Work Phone: Start: 02-26-2023 End: 02-26-2023 Patient encounter procedure DO Chester العلي Work Phone: [facility]-Pre-Surgical Testing Work Phone: Start: 02-26-2023 End: 02-26-2023 ambulatory DO Chester العلي Work Phone: [facility] Work Phone: Start: 02-26-2023 Rx Renewal Chester rosen Work Phone: [facility] [facility] DO Work Phone: Start: 01-25-[address] Chester العلي Facility: Start: 01-25-2023 Office outpatient vi sit 25 minutes Chester العلي Work Phone: [facility] Work Phone: Start: 01-09-[address] Chester العلي Facility:[id number] Start: 01-09-2023 End: 01-09-2023 Admission to same day surgery center DO Chester العلي Work Phone: [facility]-Data Reviewer Work Phone: Start: 01-04-[address] Debbie Mac Facility: Start: 01-03-2023 End: 01-04-[address] CHESTER العلي Facility:H1 Start: 01-03-[address] Debbie Mac Facility: Start: 01-02-2023 End: 01-03-[address] CHESTER العلي Facility:H1 Start: 12-25-2022 Office outpatient ne w 45 minutes Chester العلي Work Phone: [facility] Work Phone: Start: 12-25-[address] Chester العلي Facility:[id number] Start: 12-11-2022 End: 12-11-2022 ambulatory DO Chester Tyson Work Phone: [facility] Work Phone: Start: 12-11-2022 End: 12-11-2022 Patient encounter procedure DO Chester العلي Work Phone: [facility]-Pacemaker Check Start: 12-11-[address] Chester العلي Facility:[id number] Start: 11-27-2022 Telephone encounter Chester العلي [facility] Start: 11-27-2022 End: 11-27-2022 Admission to same day surgery center DO Chester Tyson Work Phone: [facility]gery [facility] [place] Start: 11-27-2022 End: 11-27-2022 ambulatory DO Chester Tyson Work Phone: [facility] [employer] Other Start: 11-20-2022 End: 11-20-2022 ambulatory DO Chester Tyson Work Phone: [facility] Work Phone: Start: 11-20-2022 End: 11-20-2022 Patient encounter procedure DO Chester Tyson Work Phone: [facility]-Pre-Surgical Testing Work Phone: Start: 10-30-2022 Telephone encounter Chester العلي [facility] Start: 10-30-2022 End: 10-30-2022 ambulatory DO Chester Ball Work Phone: [facility] Work Phone: Start: 10-30-2022 End: 10-30-2022 Patient encounter procedure DO Chester العلي Work Phone: [facility]-CT [address] Work Phone: Start: 10-24-2022 End: 10-24-2022 ambulatory Rachel Larios Other [facility] [employer] Other Start: 10-24-2022 Office outpatient vi sit 15 minutes Rachel CRUZ [facility] Start: 10-16-2022 End: 10-17-[address] CHESTER العلي Facility:H1 Start: 10-13-2022 Office outpatient vi sit 25 minutes Chester العلي Work Phone: [facility] 250 DO Work Phone: Start: 10-13-[address] Debbie Mac Facility: Start: 10-10-2022 End: 10-10-2022 ambulatory Chester العلي Other [facility] [employer] Other Start: 10-10-2022 Telephone encounter Chester SIMMONS [facility] Start: 09-27-2022 Patient encounter procedure Chester العلي Work Phone: [facility] 250 DO Work Phone: Start: 09-27-[address] Debbie Mac Facility: Start: 09-24-2022 End: 09-24-2022 ambulatory Chester العلي Other [employer] Other Start: 09-24-2022 Telephone encounter Chester Joseph [facility] Start: 09-21-[address] Chester العلي Facility:[id number] Start: 09-20-[address] Chester العلي Facility:[id number] Start: 09-19-[address] Chester العلي Facility:[id number] Start: 09-18-[address] Chester العلي Facility:[id number] Start: 09-17-2022 End: 09-21-2022 Evaluation and management of inpatient DO Chester العلي Work Phone: [facility] [place] [facility] Work Phone: Start: 09-12-2022 End: 09-12-2022 ambulatory Chester Tyson Other [facility] [employer] Other Start: 09-12-2022 Office outpatient vi sit [address] [facility] Start: 09-11-2022 End: 09-11-2022 ambulatory DO Chester العلي Work Phone: [facility] Work Phone: Start: 09-11-2022 End: 09-11-2022 Patient encounter procedure DO Chester العلي Work Phone: [facility]-Pacemaker Check Start: 09-08-2022 End: 09-08-2022 ambulatory Chester العلي Other [facility] [employer] Other Start: 09-08-2022 Telephone encounter Chester العلي [facility] Start: 09-06-[address] Jimena Smith Facility:[id number] Start: 09-05-[address] Jimena Smith Facility:[id number] Start: 09-04-[address] Jimena Smith Facility:[id number] Start: 09-03-[address] Jimena Smith Facility:[id number] Start: 09-02-[address] Chester العلي Facility:[id number] Start: 09-01-2022 End: 09-06-2022 Evaluation and management of inpatient DO Chester العلي Work Phone: [facility] [place] [facility] Work Phone: Start: 08-25-2022 Telephone encounter Chester العلي Work Phone: [facility] DO Work Phone: Start: 08-24-[address] Debbie Mac Facility: Start: 08-24-2022 Patient encounter procedure Chester العلي Work Phone: [facility] 250 DO Work Phone: Start: 06-26-2022 Office outpatient vi sit 25 minutes Chester العلي Work Phone: [facility] 250 DO Work Phone: Start: 06-26-[address] Debbie Mac Facility: Start: 06-09-2022 End: 06-09-2022 ambulatory DO Chester العلي Work Phone: [facility] Work Phone: Start: 06-09-2022 End: 06-09-2022 Patient encounter procedure DO Chester العلي Work Phone: [facility]-Pacemaker Check Start: 06-09-[address] Chester العلي Facility:[id number] Start: 05-12-2022 End: 05-13-[address] CHESTER العلي Facility:H1 Start: 05-01-2022 Adult health examination Chester العلي Other [facility] [employer] Other Start: 04-27-2022 End: 04-27-2022 ambulatory John Mims Other [facility] [employer] Other Start: 04-27-2022 Office outpatient vi sit 25 minutes John Mims [facility] Gastroenterology Start: 04-20-2022 End: 04-20-[address] RACHEL LARIOS Facility:H1 Start: 03-27-2022 Rx Renewal Chester rosen Work Phone: [facility] 250 DO Work Phone: Start: 03-16-2022 End: 03-16-2022 ambulatory John Mims Other [facility] [employer] Other Start: 03-16-2022 Telephone encounter John Rob ck [facility] Start: 03-10-2022 Office outpatient vi sit 25 minutes Chester العلي Work Phone: [facility] 250 DO Work Phone: Start: 03-10-[address] Chester العلي Facility: Start: 03-09-2022 End: 03-09-2022 Patient encounter procedure DO Chester العلي Work Phone: [facility]-Digestive Health Start: 03-09-2022 End: 03-09-2022 Patient encounter procedure DO Chester العلي Work Phone: [facility]-Pacemaker Check Start: 02-28-2022 End: 02-28-2022 ambulatory John Mims Other [facility] [employer] Other Start: 02-28-2022 Office outpatient vi sit 25 minutes John Mims [facility] Start: 02-16-2022 End: 02-16-2022 Patient encounter procedure DO Chester العلي Work Phone: [facility]-ay [facility] Start: 01-25-2022 End: 01-26-[address] Wolf MIMS Facility:H1 Start: 01-19-2022 End: 01-19-2022 Patient encounter procedure DO Chester العلي Work Phone: [facility]-XRay [facility] Start: 01-11-2022 End: 01-12-[address] CHESTER العلي Facility:H1 Start: 01-03-2022 End: 01-03-2022 Patient encounter procedure DO Chester العلي Work Phone: [facility]-Digestive Health Start: 12-30-2021 End: 12-30-2021 Patient encounter procedure DO Chester العلي Work Phone: [facility]-Pre-Surgical Testing Start: 11-21-2021 End: 11-21-2021 Patient encounter procedure DO Chester العلي Work Phone: [facility]-Pacemaker Check Start: 10-19-2021 Office outpatient vi sit 25 minutes Chester العلي Work Phone: [facility] 250 DO Work Phone: Start: 08-15-2021 Patient encounter procedure Chester العلي Work Phone: [facility] 250 DO Work Phone: Start: 07-26-2021 Rx Renewal Chester rosen Work Phone: [facility] 250 DO Work Phone: Start: 07-06-2021 Postop follow up vis it related to original px Chester العلي Work Phone: [facility] 250 DO Work Phone: Start: 06-28-2021 Chart Update Chester rosen Work Phone: [facility] [address] [place] Work Phone: Start: 06-26-2021 Chart Update Chester Moyer l Work Phone: [facility] [address] [place] Work Phone: Start: 06-24-2021 Chart Update Chester Hahn Bal l Work Phone: [facility] [address] [place] Work Phone: Start: 06-24-2021 Chart Update Chester Moyer l Work Phone: [facility] [address] [place] Work Phone: Start: 06-23-2021 Chart Update Chester Moyer l Work Phone: [facility] [address] [place] Work Phone: Start: 06-23-2021 SURGNONUH, Provider: Debbie Mac, Status: Pen, Time: 10:00 AM Chester العلي Work Phone: [facility] [address] [place] Work Phone: Start: 06-22-2021 Chart Update Chester rosen Work Phone: [facility] [address] [place] Work Phone: Start: 06-13-2021 Telephone encounter Chester العلي Work Phone: [facility] [address] [place] Work Phone: Start: 06-06-2021 Patient encounter procedure Chester العلي Work Phone: [facility] 250 DO Work Phone: Start: 05-25-2021 Telephone encounter Debbie marina MD Work Phone: [facility] 250 DO Work Phone: Start: 07-26-2020 End: 07-31-2020 Evaluation and management of inpatient CHESTER العلي Facility:[facility] Medical Equipment Procedure Code Equipment Code Equipment Origin al Text Equipment Identifier Dates Insertion, pacemaker Endocardial pacing lead [id number] FDA Start: 06-29-2021 Insertion, pacemaker Endocardial pacing lead ()[id number] FDA Start: 06-29-2021 Insertion, pacemaker Dual-chambe r implantable pacemaker, rate-responsive ()[id number] FDA Start: 06-29-2021 Cystoscopy, with ureteral calculus manipulation and stent placement Polymeric ureteral stent ()[id number] FDA Start: 07-01-2021 Goals Date Patient Goal Desired Activity /State Immunizations Immunization Date Immunization Notes Care Provider Rola priest 06-29-2023 influenza, high dose seasonal, preservative-free Chester العلي Other [employer] Other 06-29-2023 influenza virus vaccine, unspecified formulation DO Chester العلي Work Phone: [facility] 05-26-2022 Fluad Quadrivalent 0 .5 ML Intramuscular Prefilled Syringe Chester العلي Work Phone: [facility] DO Work Phone: 05-26-2022 influenza virus vaccine, split virus (incl. purified surface antigen) Chester العلي Other [facility] [employer] Other 05-26-2022 influenza virus vaccine, unspecified formulation Debbie Mac MD Work Phone: [facility] 11-13-2021 Comirnaty 30 MCG/0.3 ML Intramuscular Suspension Chester العلي Work Phone: [facility] 663 DO Work Phone: 11-13-2021 COVID-19 mRNA, Comirnaty (Pfizer) DO Chester العلي Work Phone: [facility] 07-11-2021 tetanus toxoid, redu maranda diphtheria toxoid, and acellular pertussis vaccine, adsorbed Chester العلي Work Phone: [facility] 06-14-2021 influenza virus vaccine, split virus (incl. purified surface antigen) Chester العلي Other [facility] [employer] Other 06-14-2021 influenza virus vaccine, unspecified formulation DO Chester العلي Work Phone: [facility] 10-07-2020 Pfizer-BioNTech COVID-19 Vacc 30 MCG/0.3ML Intramuscular Suspension Chester العلي Work Phone: [facility] Comment on above: Series: 09-17-2020 COVID-19 Vaccine Moderna - Documentation Purposes Only Chester العلي Other [facility] 09-17-2020 Pfizer-BioNTech COVID-19 Vacc 30 MCG/0.3ML Intramuscular Suspension Chester العلي Work Phone: [facility] Comment on above: Series: 05-20-2020 influenza, seasonal, injectable Chester العلي [facility]: [facility] DO Work Phone: Comment on above: Series: 05-05-2020 Flu Vaccine - Adult DO George العلي Work Phone: [facility] 05-05-2020 influenza virus vaccine, split virus (incl. purified surface antigen) Chester العلي Other [facility] [employer] Other 05-05-2020 influenza virus vaccine, unspecified formulation DO Chester العلي Work Phone: [facility] 05-05-2020 influenza, seasonal, injectable Chester العلي Work Phone: [facility] 05-20-2019 influenza, high dose seasonal, preservative-free Chester العلي Work Phone: [place] [address] DO Work Phone: 11-07-2018 pneumococcal polysaccharide vaccine, 23 valent Chester العلي Work Phone: [place] [address] DO Work Phone: 06-12-2018 influenza virus vaccine, split virus (incl. purified surface antigen) Chester العلي Other [facility] [employer] Other 06-12-2018 influenza virus vaccine, unspecified formulation DO Chester العلي Work Phone: [facility] 06-12-2018 Seasonal trivalent influenza vaccine, adjuvanted, preservative free Chester العلي Work Phone: [place] [address] DO Work Phone: 05-20-2018 influenza, injectabl e, quadrivalent, preservative free Chester العلي Work Phone: [facility] [employer] DO Work Phone: 06-21-2017 diphtheria, tetanus toxoids and acellular pertussis vaccine, unspecified formulation Chester العلي Other [facility] 07-06-2016 pneumococcal conjuga te vaccine, 13 valent Chester العلي Other [facility] 07-06-2016 pneumococcal Conjuga te, unspecified formulation; Translations: [Need for prophylactic vaccination against Streptococcus pneumoniae (pneumococcus)] Chester العلي Other [facility] [employer] Other 03-20-2015 pneumococcal polysaccharide vaccine, 23 valent Chester العلي [facility] Phone[facility] [employer] [facility] Work Phone: Comment on above: Series: 03-20-2014 influenza virus vaccine, unspecified formulation Chester [employer] Work Phone: [facility] [employer] [facility] Work Phone: 06-24-2013 tetanus and diphther ia toxoids, adsorbed, preservative free, for adult use (5 Lf of tetanus toxoid and 2 Lf of diphtheria toxoid) Chester العلي Other [facility] 09-05-2012 zoster vaccine, live Benjvelia العلي Work Phone: [facility] [employer] DO Work Phone: 07-29-2008 pneumococcal polysaccharide vaccine, 23 valent Chester العلي Other [facility] Medications Current Medications Medication Drug Class(es) Dates [...] 10:05am calcium carbonate 1500 mg oral tablet (7 sources) Start: 01-18-2024 take 1 tablet by [...] bedtime Escitalopram Oxalate Discontinued 0 .ROUTE .COMPLEX 90 December 03, 2023 6:37pm January 19, 2024 [...] Furosemide Discontinued 40 M G PO Daily 0 July 03, 2021 3:40pm [...] 2021 12:29pm take 1 capsule by mo [facility] once daily Acidophilus Oral Capsule TAKE [...] at bedtime January 18, 2024 12:00am Start: 07-12-2021 take 1 tablet by nghia th at [...] Tablet Active 120 MG PO Twice daily January 20, 2024 12:00am Start: 09-25-2022 take 1 tablet by nghia th every twelve hours Sotalol HCl 80 MG 1 tablet Orally every 12 hrs Sep, Active Start: 09-21-2022 End: 01-20-2024 take 80 mg by mouth twice daily Sotalol Discontinued 8 0 MG PO Twice daily September 21, 2022 1:00am January 20, 2024 2:49pm Vit A-Vit X-Egqgaj-Joqy-Copper (Uhma-Momo-Ckkw(Vit A,C-Biotin)) 2,500 unit-100 mg-2,500 mcg capsule (5 sources) Start: 01-18-2024 take 1 capsule by mouth once daily Vit A-Vit B-Bhsvzz-Yheq-Copper (Opko-Lgxm-Ipta(Vit A,C-Biotin)) 2,500 unit-100 mg-2,500 mcg capsule Active [...] mg/ml / clotrimazole 10 mg/ml topical cream (20 sources) Azole Antifungal, Corticosteroid Start: 11-24-2023 End: 01-18-2024 Clotrimazole-Betam ethasone Discontinued APPLIC TOPICAL Twice daily November 24, 2023 12:00am January 18, 2024 3:56pm APPLY DAILY TO SKIN TO AFFECTED AREA TWICE A DAY FOR 7 DAYS Start: 10-24-2022 Clotrimazole-Bet amethasone 1-0.05 % APPLY DAILY TO SKIN TO AFFECTED AREA TWICE A DAY FOR 7 DAYS for 30 Active Biotin (12 sources) Start: 02-26-2023 End: 11-24-2023 take 1 tablet by mouth once daily in the morning Biotin (Hair, Skin And Nails (Biotin)) 10,000 mcg Tablet,Chewable Discontinued 57936 MCG PO Every morning February 26, 2023 12:00am November 24, 2023 10:06am Start: 02-26-2023 take 1 tablet by nghia th once daily in the morning Biotin (Hair, Skin And Nails (Biotin)) 10,000 mcg Tablet,Chewable Active 53194 MCG PO Every morning February 25, 2023 11:00pm Start: 02-26-2023 take 1 tablet by nghia th once daily in the morning Biotin (Hair, Skin And Nails (Biotin)) 10,000 mcg Tablet,Chewable Active 83258 MCG PO Every morning February 26, 2023 [...] 1:00am December 14, 2020 10:40am Ginkgo-Choline Bitartrate ([employer] Memory Support) 120 mg- 110 mg Tablet (12 sources) Start: 02-26-2023 End: 11-24-2023 take 1 tablet by mouth once daily in the morning Ginkgo-Choline Bitartrate ([employer] Memory Support) 120 mg- 110 mg Tablet Discontinued 1 TAB PO Every morning February 26, 2023 12:00am November 24, 2023 10:07am Start: 02-26-2023 take 1 tablet by nghia th once daily in the morning Ginkgo-Choline Bitartrate ([employer] Memory Support) 120 mg- 110 mg Tablet Active 1 TAB PO Every morning February 25, 2023 11:00pm Start: 02-26-2023 take 1 tablet by nghia th once daily in the morning Ginkgo-Choline Bitartrate ([employer] Memory Support) 120 mg- 110 mg Tablet [...] 12.5 MG PO Daily at 0800 30 30 December 16, 2020 12:00am March 15, [...] Ordered: 01-May-2022 DO Start : 01-May-2022 Complete Payers Date Payer Category Payer Medicare [id number] 2023 Self-pay [id number] 2022 Unknown 2020 Medicare [id number] 2009 Unknown [id number] 1959 Private Health Insurance [id number] 1942 Unknown [id number] 2.16.8 40.1.579028.3.579.2.647 1942 Unknown [id number] 2.16. 840.1.321239.3.579.2.356 1942 Unknown [id number] 2.16.84 0.1.837465.3.579.2.593 1942 Unknown [id number] 2.16.84 0.1.884328.3.579.2.593 1942 Unknown [id number] 2.16.84 0.1.432739.3.579.2.593 1942 Unknown [id number] 2.16.84 0.1.297782.3.579.2.593 1942 Unknown [id number] 2.16.84 0.1.559440.3.579.2.593 1942 Unknown [id number] 2.16.84 0.1.817508.3.579.2.593 1942 Unknown [id number] 2.16.84 0.1.977996.3.579.2.593 1942 Unknown [id number] 2.16. 840.1.326755.3.579.2.356 1942 Unknown [id number] 2.16. 840.1.287957.3.579.2.356 1942 Unknown [id number] 2.16. 840.1.591629.3.579.2.356 1942 Unknown [id number] 2.16. 840.1.519593.3.579.2.356 1942 Unknown [id number] 2.16. 840.1.757879.3.579.2.356 1942 Unknown [id number] 2.16. 840.1.956045.3.579.2.356 1942 Unknown [id number] 2.16. 840.1.502097.3.579.2.356 1942 Unknown [id number] 2.16. 840.1.242301.3.579.2.356 1942 Unknown [id number] 2.16. 840.1.075946.3.579.2.356 1942 Unknown [id number] 2.16. 840.1.505552.3.579.2.356 1942 Unknown [id number] 2.16. 840.1.553692.3.579.2.356 1942 Unknown [id number] 2.16. 840.1.152474.3.579.2.356 1942 Unknown [id number] 2.16. 840.1.815303.3.579.2.356 1942 Unknown [id number] 2.16. 840.1.154611.3.579.2.356 1942 Unknown [id number] 2.16. 840.1.673290.3.579.2.356 1942 Unknown [id number] 2.16. 840.1.753110.3.579.2.356 1942 Unknown [id number] 2.16. 840.1.178701.3.579.2.356 1942 Unknown [id number] 2.16. 840.1.171764.3.579.2.356 1942 Unknown [id number] 2.16. 840.1.698982.3.579.2.356 1942 Unknown [id number] 2.16. 840.1.525730.3.579.2.356 1942 Unknown [id number] 2.16. 840.1.696942.3.579.2.356 1942 Unknown [id number] 2.16. 840.1.317955.3.579.2.356 1942 Unknown [id number] 2.16. 840.1.551405.3.579.2.356 1942 Unknown [id number] 2.16. 840.1.026354.3.579.2.356 1942 Unknown [id number] 2.16. 840.1.462193.3.579.2.356 1942 Unknown [id number] 2.16.84 0.1.153414.3.579.2.1246 1942 Unknown [id number] 2.16.84 0.1.389147.3.579.2.1259 1942 Unknown [id number] 2.16.8 40.1.319334.3.579.2.1244 1942 Unknown [id number] 2.16.8 40.1.358160.3.579.2.1244 1942 Unknown [id number] 2.16.8 40.1.564033.3.579.2.1244 1942 Unknown [id number] 2.16.8 40.1.129843.3.579.2.1244 1942 Unknown [id number] 2.16. 840.1.492607.3.579.2.196 1942 Unknown [id number] 2.16. 840.1.130504.3.579.2.196 1942 Unknown [id number] 2.16. 840.1.612640.3.579.2.196 Medicare [id number] Medicare Medicare [id number] Private Health Insurance [id number] Unknown [id number] 2.16.8 40.1.212381.3.579.2.531 Unknown [id number] 2.16.8 40.1.536891.3.579.2.531 Unknown [id number] 2.16.8 40.1.231044.3.579.2.531 Unknown [id number] 2.16.8 40.1.624301.3.579.2.531 Unknown [id number] 2.16.8 40.1.961597.3.579.2.531 Unknown [id number] 2.16.8 40.1.259328.3.579.2.531 Unknown [id number] 2.16.8 40.1.624890.3.579.2.531 Unknown [id number] 2.16.8 40.1.271560.3.579.2.531 Unknown [id number] 2.16.8 40.1.670831.3.579.2.531 Plan of Treatment Date Care Activity Detail Author Start: 07-11-2031 DTaP/Tdap/Td Vaccines (2 - Td or Tdap) DTaP/Tdap/Td Vaccines (2 - Td or Tdap) [facility] Start: 07-11-2031 DTaP/Tdap/Td Vaccines (3 - Td or Tdap) DTaP/Tdap/Td Vaccines (3 - Td or Tdap) [facility] Start: 01-18-2025 Echocardiography Echocardiogram [facility] Start: 08-21-2024 Echocardiography Echocardiogram [facility] Start: 04-07-2024 End: 04-07-2024 Patient encounter procedure 04/07/2024 9:45 AM EDT Office Visit [address] [place] [address] Maxwell Stafford MD [address] [place] [address] [facility] Start: 03-25-2024 End: 03-25-2024 Patient encounter procedure 03/25/2024 2:40 PM EDT Office Visit [facility] [address] [place] [address] Debbie Mac MD [address] [place] [address] [facility] Start: 01-20-2024 [facility] Start: 01-19-2024 [facility] Start: 01-18-2024 Referral to manager of planning [facility] Start: 01-18-2024 [facility] Start: 01-18-2024 Hospital admission [facility] Start: 11-28-2023 End: 11-28-2023 Patient encounter procedure 11/28/2023 3:10 PM EDT Office Visit [place] [address] [place] [address] Debbie aMc MD [address] [place] [address] [facility] Start: 09-19-2023 End: 09-19-2023 Patient encounter procedure 09/19/2023 1:00 PM EST Office Visit [facility] [address] [place] [address] Debbie Mac MD [address] [place] [address] [facility] Start: 09-02-2023 Echocardiography Echocardiogram [facility] Start: 07-05-2023 End: 07-05-2023 Patient encounter procedure 07/05/2023 1:30 PM EST Appointment [facility] [address] [place] [address] [facility] Start: 05-31-2023 FUV, Provider: Debbie Mac, Status: Pen, Time: 3:00 PM FUV, Provider: Debbie Mac, Status: Pen, Time: 3:00 PM [facility] Work Phone: Start: 05-31-2023 End: 05-31-2025 [facility] Transthoracic Transthoracic Echo (TTE) Complete Echocardiography Routine Chronic diastolic heart failure (CMS/HCC) Essential hypertension, benign Dyspnea, unspecified type Expected: 05/31/2023 (Approximate), Expires: 05/31/2025 [facility] Service Area Work Phone: Comment on above: Expected: 05/31/2023 (Approximate), Expi res: 05/31/2025 Start: 05-09-2023 FUV, Provider: Maxwell Stafford, Status: Pen, Time: 4:00 PM FUV, Provider: Maxwell Stafford, Status: Pen, Time: 4:00 PM [facility] 250 DO Work Phone: Start: 04-20-2023 COVID-19 Vaccine ( season) COVID-19 Vaccine ( season) [facility] Start: 04-20-2023 Influenza vaccination Influenza Vaccine (#1) [facility] Start: 04-04-2023 FUV, Provider: Maxwell Stafford, Status: Pen, Time: 3:00 PM FUV, Provider: Maxwell Stafford, Status: Pen, Time: 3:00 PM [facility] 250 DO Work Phone: Start: 03-05-2023 [facility] Start: 03-05-2023 [facility] Start: 02-14-2023 FUV, Provider: Maxwell Stafford, Status: Pen, Time: 1:30 PM FUV, Provider: Maxwell Stafford, Status: Pen, Time: 1:30 PM [facility] Work Phone: Start: 01-09-2023 [facility] Start: 01-04-2023 FUV, Provider: Debbie Mac, Status: Pen, Time: 1:50 PM FUV, Provider: Debbie Mac, Status: Pen, Time: 1:50 PM [facility] 250 DO Work Phone: Start: 11-27-2022 Laparoscopic cholecystectomy OR Cholecystectomy Laparoscopic (Not Applicable) [facility] Start: 11-27-2022 End: 11-27-2022 [facility] Start: 10-13-2022 FUV, Provider: Debbie Mac, Status: Pen, Time: 10:30 AM FUV, Provider: Debbie Mac, Status: Pen, Time: 10:30 AM [facility] 250 DO Work Phone: Start: 09-21-2022 [facility] Start: 09-17-2022 Hospital admission [facility] Start: 09-17-2022 Referral to manager of planning [facility] Start: 09-17-2022 Bacteria identified in Urine by Culture [facility] Start: 09-06-2022 [facility] Start: 09-05-2022 Blood chemistry [facility] Start: 09-05-2022 [facility] Start: 09-04-2022 Administration of prophylactic treatment [facility] Start: 09-04-2022 Blood chemistry [facility] Start: 09-04-2022 [facility] Start: 09-03-2022 Blood chemistry [facility] Start: 09-03-2022 [facility] Start: 09-02-2022 Blood chemistry [facility] Start: 09-02-2022 Brain natriuretic peptide measurement [facility] Start: 09-02-2022 Magnesium measurement [facility] Start: 09-02-2022 [facility] Start: 09-01-2022 Referral to manager of planning [facility] Start: 09-01-2022 Hospital admission [facility] Start: 09-01-2022 [facility] Start: 09-01-2022 Bacteria identified in Urine by Culture Urine Culture [facility] Start: 07-12-2022 FUV, Provider: Debbie Mac, Status: Pen, Time: 2:40 PM FUV, Provider: Debbie Mac, Status: Pen, Time: 2:40 PM [facility] [address] DO Work Phone: Start: 03-09-2022 [facility] Work Phone: Start: 02-22-2022 FUV, Provider: Debbie Mac, Status: Pen, Time: 2:50 PM FUV, Provider: Debbie Mac, Status: Pen, Time: 2:50 PM [facility] [address] DO Work Phone: Start: 01-08-2022 COVID-19 Vaccine (3 - Pfizer series) COVID-19 Vaccine (3 - Pfizer series) [facility] Start: 01-03-2022 [facility] Work Phone: Start: 10-19-2021 FUV, Provider: Debbie Mac, Status: Pen, Time: 3:30 PM FUV, Provider: Debbie Mac, Status: Pen, Time: 3:30 PM [facility] [address] DO Work Phone: Start: 09-12-2021 FUV, Provider: Debbie Mac, Status: Pen, Time: 2:50 PM FUV, Provider: Debbie Mac, Status: Pen, Time: 2:50 PM [facility] [address] DO Work Phone: Start: 07-26-2021 FUV, Provider: Debbie Mac, Status: Pen, Time: 2:00 PM [facility] [address] DO Work Phone: Start: 06-23-2021 SURGNON, Provider: Debbie Mac, Status: Pen, Time: 10:00 AM [facility]: Debbie Mac, Status: Pen, Time: 10:00 AM [facility] [address] [place] Work Phone: Start: 11-08-2019 Pneumococcal Vaccine: 65+ Years (2 - PCV) Pneumococcal Vaccine: 65+ Years (2 - PCV) [facility] Start: 10-31-2012 Zoster Vaccines (2 of 3) Zoster Vaccines (2 of 3) [facility] Start: 2002 Hepatitis B Vaccines (1 of 3 - Risk 3-dose series) Hepatitis B Vaccines (1 of 3 - Risk 3-dose series) [facility] Start: 2002 RSV patients and/or patients aged 60+ years (1 - 1-dose 60+ series) RSV patients and/or patients aged 60+ years (1 - 1-dose 60+ series) [facility] Start: 1961 Hepatitis A Vaccines (1 of 2 - Risk 2-dose series) Hepatitis A Vaccines (1 of 2 - Risk 2-dose series) [facility] Start: 1960 Diabetes mellitus screening Diabetes Screening [facility] Start: 1942 Creatinine measurement Creatinine Level [facility] Start: 1942 Lipid panel Lipid Panel [facility] Start: 1942 Medicare Annual Wellness Visit Medicare Annual Wellness Visit (AWV) [facility] Start: 1942 Potassium measurement Potassium Level [facility] Start: 1942 Screening for osteoporosis Bone Density Scan [facility] CT Abdomen and Pelvi s W contrast IV [facility] CT Abdomen and Pelvi s W contrast IV [facility] Hepatitis A virus antibody, IgM type [facility] Work Phone: Hepatitis B core ant ibody measurement, IgM type [facility] Work Phone: Hepatitis B virus vieira rface Ag [Presence] in Serum or Plasma by Immunoassay [facility] Work Phone: Hepatitis C virus Ab Signal/Cutoff in Serum or Plasma by Immunoassay [facility] Work Phone: Hepatitis C virus RN A [log units/volume] (viral load) in Serum or Plasma by GUILLERMO with probe detection [facility] Work Phone: Hepatitis C virus RN A [Units/volume] (viral load) in Serum or Plasma by GUILLERMO with probe detection [facility] Work Phone: Homogenous nuclear A b pattern [Titer] in Serum [facility] Work Phone: Nuclear Ab [Titer] i n Serum [facility] Work Phone: Patient Education [facility] Work Phone: Patient referral [facility] Work Phone: End: 08-21-2023 [facility] Service Area Work Phone: Comment on above: Once for 1 Occurrences starting 08/21/19 24 until 08/21/2023 [facility] Problems Active Problems Problem Classification Problem Date [...] [Coronary atherosclerosis of unspecified type of vessel, [place] ira or graft] Onset: 3 04-28-2023 Chronic Deficiency [...] current use of drug therapy; Translations: [Other intermodal customer service (current) drug therapy] Episodic Other aftercare (1 source) High risk drug monitoring status; Translations: [intermediate (current) use of opiate analgesic] Episodic Other aftercare (1 source) Other mcfp (current) drug therapy Episodic Other and ill-defined heart disease (20 sources) Left ventricular systolic dysfunction; Translations: [Other [...] Episodic Other bone disease and musculoskeletal deformities (6 sources) Osteopenia; Translations: [Other specified disorders of bone density and structure, other site] 11-24-2023 Episodic Other circulatory disease (20 sources) Low blood pressure; Translations: [Hypotension, unspecified] 06-27-2021 Episodic Other connective tissue disease (9 sources) Fibromyalgia; Translations: [Fibromyalgia] 11-24-2023 Episodic Other diseases of kidney and ureters (13 sources) Hydronephrosis; Translations: [Hydronephrosis with renal and ureteral calculous obstruction] 06-28-2021 Episodic Other diseases of kidney and ureters (12 sources) Hydronephrosis with renal and ureteral calculous [...] [Dysphagia, pharyngoesophageal phase] Episodic Other gastrointestinal disorders (6 sources) Personal history of other diseases of the digestive system; Translations: [Personal history of other diseases of digestive system] Onset: 4 01-28-2024 Episodic Other hereditary and degenerative nervous [...] 2 Resolved: 2 Chronic Other liver diseases (7 sources) Cirrhosis of liver; Translations: [Unspecified cirrhosis of liver] 11-24-2023 Chronic Other lower respiratory disease (20 sources) Dyspnea on exertion; Translations: [Other forms [...] Onset: 6 11-24-2023 Chronic Residual codes; unclassified (12 sources) Obstructive sleep apnea (adult) (pediatric); Translations: [...] Resolved: 04-04-2022 Episodic Other aftercare (7 sources) intermediate (current) use of anticoagulants; Translations: [Long-term (current) use of anticoagulants] Onset: 04-28-2023 09-21-2022 Episodic Other aftercare (5 sources) Taking high risk medication; Translations: [Other mcfp (current) drug therapy] Onset: 04-28-2023 04-28-2023 Episodic [...] caused by 2019-nCoV; Translations: [COVID-19] Resolved: 2020 Procedures Date Procedure Procedure Detail Performing Clinician Start: 02-18-2024 Computed tomography of abdomen and pelvis with contrast DO Chester Ball Work Phone: Start: 01-22-2024 Ecg routine ecg w/le ast 12 lds w/i&r Debbie Mac MD Work Phone: Start: 01-18-2024 Plain chest X-ray DO Be cinthia Ball Work Phone: Start: 11-28-2023 ECG 12-LEAD DEBBIE MARINA Start: 11-28-2023 FOLLOW UP IN CARDIOLOGY DEBBIE MAC Start: 11-21-2023 MR lumbar spine wo con DO Chester Ball Work Phone: Start: 09-19-2023 ECG 12-LEAD DEBBIE MARRERO SALAS Start: 09-19-2023 FOLLOW UP IN CARDIOLOGY DEONNAZARI ROSAHAKrysten Start: 09-19-2023 Ecg routine ecg w/le ast 12 lds w/i&r Debbie Mac MD Work Phone: Start: 08-21-2023 TRANSTHORACIC ECHO ( TTE) COMPLETE DEBBIE MAC Start: 08-21-2023 Echo tthrc r-t 2d w/ wom-mode compl spec&colr d Debbie Mac MD Work Phone: Start: 05-31-2023 ECG 12-LEAD DEBBIE MARRERO SALAS Start: 05-31-2023 Ecg routine ecg w/le ast [...] Phone: Start: 03-09-2022 DH Fibroscan DO Arlette n Ball Work Phone: Start: 01-03-2022 Esophageal manometry DO Chester Ball Work Phone: Start: 07-30-2020 MEASUREMENT OF CARDI AC TOTAL ACTIVITY, EXTERNAL APPROACH TANNER HERRERA Start: 07-28-2020 INTRODUCTION OF OTHE R GAS INTO RESP TRACT, VIA OPENING JELANI WOO Start: 07-28-2020 Congregational of Cardi ac Rhythm, Single SANJUANA CARRERO Start: 07-28-2020 ULTRASONOGRAPHY OF R IGHT AND LEFT HEART, TRANSESOPHAGEAL SANJUANA CARRERO Start: 06-20-2017 Screening for osteoporosis Chester العلي Other Start: 09-13-2016 General examination of patient Chester العلي Other Start: 05-21-2015 Screening mammography B enjamin Tyson Other Appendectomy Chester العلي Work Phone: Depression screening Arlette n Tyson Other Hernia repair Chester Hahn Bal l Work Phone: Hysterectomy Chester E Tyson Work Phone: Insertion of pacemak er pulse generator Chester E Ball Work Phone: Operative procedure on foot Chester E Tyson Work Phone: Results Test Name Value Interpretation Reference Range Facility CT abdomen pelvis w roselia CT abdomen pelvis w [facility] [address] CT Scan Report Signed Patient: Lesa Golden MR#: [id number] 8 : 1940 Acct:[id number] Age/Sex: 83 / F ADM Date: 02/18/24 Loc: CT Room: Type: [facility] Attending Dr: Chester العلي DO Copies to: Chester العلي DO Ordering Provider: Chester العلي DO Date of Service: 02/18/24 CT/CT abdomen pelvis w con: R11.2 - Nausea with vomiting, unspecified CT ABDOMEN AND PELVIS WITH CONTRAST COMPARISON: 06/27/2021 CLINICAL DATA: Difficulty keeping food down. Hiatal hernia. Spiral images were obtained through the abdomen and pelvis following oral and 90 mL of Isovue-300. This CT exam was performed using one or more following dose reduction techniques: Automated exposure control, adjustment of the mA and/or kV according to patient size, or use of iterative reconstruction technique. Limited cuts through the lung bases again show a [id number] sized hiatal hernia. There are no contributory pulmonary findings. Fatty infiltration of the liver is seen. The gallbladder is surgically absent. The spleen, pancreas and adrenal glands show no acute findings. The left kidney is atrophic. The nephrograms are symmetric. A right renal cyst is again visualized. No hydronephrosis is seen. The abdominal aorta is normal caliber and there is minimal plaque. No enlarged lymph nodes or ascites are identified. The small bowel loops are not distended. There is stool throughout the colon. Dextroscoliotic curvature and degenerative changes are seen at the spine, greatest at the facets. Images through the pelvis show normal caliber small bowel loops. There is a low-lying cecum which contains mild stool . There is also a small amount of stool at the distal colon. There are some sigmoid diverticula, without associated active inflammation. The appendix and uterus are surgically absent. The urinary bladder is not well distended for evaluation. No ascites is identified. CT/CT abdomen pelvis w con IMPRESSION: HIATAL HERNIA. FATTY LIVER. RIGHT RENAL CYST AND LEFT RENAL ATROPHY. MINIMAL DIVERTICULOSIS. NO ACUTE FINDINGS. Impression dictated by: Rach Tong M.D.02/18/2024 5:29 PM Dictation Location: [place] [address] Transcribed By: JODI 02/18/241728 Dictated By: Rach Tong MD 02/18/241721 Signed By: 07/01/24 1729 Normal [facility] Basophils Auto (Bld) [#/Vol] on 02-08-2024 Basophils (Bld) [#/Vol] 0.0 10 3/uL 0.0-0.1 [facility] Basophils/100 WBC Auto (Bld) on 02-08-2024 Basophils/100 WBC (Bld) 0.1 % Low 0.2-2.0 [facility] Eosinophils/100 WBC Auto (Bl d)on 02-08-2024 Eosinophils/100 WBC (Bld) 0.2 % Low 0.9-7.0 [facility] Erythrocyte distribution wid th Auto (RBC) [Ratio]on 02-08-2024 Erythrocyte distribution width (RBC) [Ratio] 13.9 % 11.0-15.0 [facility] Estimated glomerular filtrat ion rate (GFR) non- Americanon 02-08-2024 GFR/1.73 sq M.predicted among non-blacks MDRD (S/P/Bld) [Vol rate/Area] mL/min/{1.73_m2} >=60 [facility] Globulin Calc (S) [Mass/Vol] on 02-08-2024 Globulin (S) [Mass/Vol] 3.0 g/dL [facility] Hematocrit Auto (Bld) [Volum e fraction]on 02-08-2024 Hematocrit (Bld) [Volume fraction] 40.7 % 36.0-48.0 [facility] Hemoglobin [Mass/volume] in Bloodon 02-08-2024 Hemoglobin (Bld) [Mass/Vol] 13.6 g/dL 12.0-16.0 [facility] Laboratory - Chemistry and C hemistry - challengeon 02-08-2024 Albumin [Mass/Vol] 2.8 g/dL Low 3.4-5.0 [facility] ALP [Catalytic activity/Vol] 85 U/L 46-116 [facility] ALT [Catalytic activity/Vol] 32 U/L 14-59 [facility] AST [Catalytic activity/Vol] 20 U/L 15-37 [facility] Bilirubin [Mass/Vol] 0.7 mg/dL 0.2-1.0 [facility] Calcium [Mass/Vol] 9.0 mg/dL 8.5-10.1 [facility] Chloride [Moles/Vol] 103 mmol/L 98-107 [facility] CO2 [Moles/Vol] 27.1 mmol/L 21.0-32.0 [facility] Creatinine [Mass/Vol] 0.82 mg/dL 0.55-1.02 [facility] GFR/1.73 sq M.predicted MDRD (S/P/Bld) [Vol rate/Area] mL/min/{1.73_m2} >=60 [facility] Glucose [Mass/Vol] 122 mg/dL High 74-106 [facility] Potassium [Moles/Vol] 4.6 mmol/L 3.5-5.1 [facility] Protein [Mass/Vol] 5.8 g/dL Low 6.4-8.2 [facility] Sodium [Moles/Vol] 135 mmol/L Low 136-145 [facility] Urea nitrogen [Mass/Vol] 30.0 mg/dL High 7.0-18.0 [facility] Urea nitrogen/Creatinine [Mass ratio] 36.6 mg/mg [facility] Laboratory - Hematology and Cell countson 02-08-2024 Immature granulocytes/100 WBC (Bld) 1.6 % High 0.0-0.5 [facility] Leukocytes [#/volume] correc anne marie for nucleated erythrocytes in Blood by Automated counon 02-08-2024 WBC corrected for nucl RBC Auto (Bld) [#/Vol] 12.9 10 3/uL High 4.0-11.0 [facility] Lymphocytes Auto (Bld) [#/Vo l]on 02-08-2024 Lymphocytes (Bld) [#/Vol] 0.9 10 3/uL Low 1.2-3.8 [facility] Lymphocytes/100 WBC Auto (Bl d)on 02-08-2024 Lymphocytes/100 WBC (Bld) 6.7 % Low 20.5-60.0 [facility] MCH Auto (RBC) [Entitic mass ]on 02-08-2024 MCH (RBC) [Entitic mass] 31.1 pg 26.7-34.0 [facility] MCHC Auto (RBC) [Mass/Vol]on 02-08-2024 MCHC (RBC) [Mass/Vol] 33.4 g/dL 29.9-35.2 [facility] MCV Auto (RBC) [Entitic vol] on 02-08-2024 MCV (RBC) [Entitic vol] 93.1 fL 81.0-99.0 [facility] Monocytes Auto (Bld) [#/Vol] on 02-08-2024 Monocytes (Bld) [#/Vol] 0.6 10 3/uL 0.3-0.8 [facility] Monocytes/100 WBC Auto (Bld) on 02-08-2024 Monocytes/100 WBC (Bld) 4.6 % 1.7-12.0 [facility] Neutrophils Auto (Bld) [#/Vo l]on 02-08-2024 Neutrophils (Bld) [#/Vol] 11.2 10 3/uL High 1.4-6.5 [facility] Neutrophils/100 WBC Auto (Bl d)on 02-08-2024 Neutrophils/100 WBC (Bld) 86.8 % High 43.0-75.0 [facility] No Panel Informationon 02-07 Eosinophils # (Auto) 0.0 10 3/uL 0.0-0.7 [facility] Immature Granulocyte # (Auto) 0.21 10 3/uL High 0.00-0.03 [facility] Platelet mean volume Auto (B ld) [Entitic vol]on 02-08-2024 Platelet mean volume (Bld) [Entitic vol] 10.4 fL 9.5-13.5 [facility] Platelets Auto (Bld) [#/Vol] on 02-08-2024 Platelets (Bld) [#/Vol] 204 10 3/uL 150-450 [facility] RBC Auto (Bld) [#/Vol]on RBC (Bld) [#/Vol] 4.37 10 6/uL 4.20-5.40 [facility] Serum or plasma albumin/glob ulin mass ratioon 02-08-2024 Albumin/Globulin [Mass ratio] 0.9 {ratio} [facility] Serum or plasma anion gap de terminationon 02-08-2024 Anion gap [Moles/Vol] 9.5 mmol/L [facility] Basophils Auto (Bld) [#/Vol] on 02-07-2024 Basophils (Bld) [#/Vol] 0.0 10 3/uL 0.0-0.1 [facility] Basophils/100 WBC Auto (Bld) on 02-07-2024 Basophils/100 WBC (Bld) 0.1 % Low 0.2-2.0 [facility] Eosinophils/100 WBC Auto (Bl d)on 02-07-2024 Eosinophils/100 WBC (Bld) 0.2 % Low 0.9-7.0 [facility] Erythrocyte distribution wid th Auto (RBC) [Ratio]on 02-07-2024 Erythrocyte distribution width (RBC) [Ratio] 14.1 % 11.0-15.0 [facility] Estimated glomerular filtrat ion rate (GFR) non- Americanon 02-07-2024 GFR/1.73 sq M.predicted among non-blacks MDRD (S/P/Bld) [Vol rate/Area] 51 mL/min/{1.73_m2} Low >=60 [facility] Globulin Calc (S) [Mass/Vol] on 02-07-2024 Globulin (S) [Mass/Vol] 3.2 g/dL [facility] Hematocrit Auto (Bld) [Volum e fraction]on 02-07-2024 Hematocrit (Bld) [Volume fraction] 46.3 % 36.0-48.0 [facility] Hemoglobin [Mass/volume] in Bloodon 02-07-2024 Hemoglobin (Bld) [Mass/Vol] 15.3 g/dL 12.0-16.0 [facility] Laboratory - Chemistry and C hemistry - challengeon 02-07-2024 Albumin [Mass/Vol] 3.1 g/dL Low 3.4-5.0 [facility] ALP [Catalytic activity/Vol] 107 U/L 46-116 [facility] ALT [Catalytic activity/Vol] 38 U/L 14-59 [facility] AST [Catalytic activity/Vol] 19 U/L 15-37 [facility] Bilirubin [Mass/Vol] 0.7 mg/dL 0.2-1.0 [facility] Bilirubin Ql (U) Negative NEGATIVE [facility] Bilirubin.direct [Mass/Vol] 0.2 mg/dL 0.0-0.2 [facility] Calcium [Mass/Vol] 9.3 mg/dL 8.5-10.1 [facility] Chloride [Moles/Vol] 104 mmol/L 98-107 [facility] CO2 [Moles/Vol] 25.4 mmol/L 21.0-32.0 [facility] Creatinine [Mass/Vol] 1.03 mg/dL High 0.55-1.02 [facility] GFR/1.73 sq M.predicted MDRD (S/P/Bld) [Vol rate/Area] mL/min/{1.73_m2} >=60 [facility] Glucose (U) [Mass/Vol] Negative NEGATIVE Fi [facility] Glucose [Mass/Vol] 137 mg/dL High 74-106 [facility] Ketones Ql (U) Negative NEGATIVE [facility] Lipase [Catalytic activity/Vol] 66.0 U/L 16.0-77.0 [facility] Natriuretic peptide B (Bld) [Mass/Vol] 1679.0 pg/mL <=1800.0 [facility] pH (U) 6.0 [pH] 5.0-9.0 [facility] Potassium [Moles/Vol] 4.6 mmol/L 3.5-5.1 [facility] Protein [Mass/Vol] 6.3 g/dL Low 6.4-8.2 [facility] Sodium [Moles/Vol] 137 mmol/L 136-145 [facility] Specific gravity (U) [Rel density] >=1.030 Abnormal 1.005-1.02 5 [facility] Urea nitrogen [Mass/Vol] 35.0 mg/dL High 7.0-18.0 [facility] Urea nitrogen/Creatinine [Mass ratio] 34.0 mg/mg [facility] Urobilinogen Qn (U) 1.0 {Sherrell'U}/dL 0.2-1.0 [facility] Laboratory - Hematology and Cell countson 02-07-2024 Immature granulocytes/100 WBC (Bld) 1.6 % High 0.0-0.5 [facility] - Specimen inform ationon 02-07-2024 Appearance (U) CLEAR CLEAR [facility] Color (U) YELLOW YELLOW [facility] Laboratory - Urinalysison Leukocyte esterase Test strip Ql (U) Negative NEGATIVE [facility] Nitrite Ql (U) Negative NEGATIVE [facility] Protein Ql (U) TRACE mg/dL NEG/TRACE [facility] Leukocytes [#/volume] correc anne marie for nucleated erythrocytes in Blood by Automated counon 02-07-2024 WBC corrected for nucl RBC Auto (Bld) [#/Vol] 18.4 10 3/uL High 4.0-11.0 [facility] Lymphocytes Auto (Bld) [#/Vo l]on 02-07-2024 Lymphocytes (Bld) [#/Vol] 1.0 10 3/uL Low 1.2-3.8 [facility] Lymphocytes/100 WBC Auto (Bl d)on 02-07-2024 Lymphocytes/100 WBC (Bld) 5.4 % Low 20.5-60.0 [facility] MCH Auto (RBC) [Entitic mass ]on 02-07-2024 MCH (RBC) [Entitic mass] 31.0 pg 26.7-34.0 [facility] MCHC Auto (RBC) [Mass/Vol]on 02-07-2024 MCHC (RBC) [Mass/Vol] 33.0 g/dL 29.9-35.2 [facility] MCV Auto (RBC) [Entitic vol] on 02-07-2024 MCV (RBC) [Entitic vol] 93.7 fL 81.0-99.0 [facility] Monocytes Auto (Bld) [#/Vol] on 02-07-2024 Monocytes (Bld) [#/Vol] 1.0 10 3/uL High 0.3-0.8 [facility] Monocytes/100 WBC Auto (Bld) on 02-07-2024 Monocytes/100 WBC (Bld) 5.4 % 1.7-12.0 [facility] Neutrophils Auto (Bld) [#/Vo l]on 02-07-2024 Neutrophils (Bld) [#/Vol] 16.1 10 3/uL High 1.4-6.5 [facility] Neutrophils/100 WBC Auto (Bl d)on 02-07-2024 Neutrophils/100 WBC (Bld) 87.3 % High 43.0-75.0 [facility] No Panel Informationon 02-06 Eosinophils # (Auto) 0.0 10 3/uL 0.0-0.7 [facility] Immature Granulocyte # (Auto) 0.29 10 3/uL High 0.00-0.03 [facility] Troponin I High Sensitivity 50.2 pg/mL 4.0-51.3 [facility] Comment on above: CUT-OFF POINTS HAVE BEEN ESTABLISHED BASED ON THE FOURTHUNIVERSAL DEFINITION OF MYOCARDIAL INFARCTION. THE UPPERREFERENCE LIMIT (URL) OF TROPONIN, DEFINED THE 99THPERCENTILE OF cTnI DISTRIBUTION IN A REFERENCE POPULATION,HAS BEEN CONFIRMED THE DECISION THRESHOLD FOR MIDIAGNOSIS.99TH PERCENTILE = 51.4 PG/MLNOTE: HIGH-SENSITIVITY TROPONIN ASSAY IS NOT INTENDED TO BEUSED IN ISOLATION BUT SHOULD BE INTERPRETED IN CONJUNCTIONWITH OTHER DIAGNOSTIC AND CLINICAL INFORMATION. Urine Microscopic Review NO [facility] Urine Occult Blood Negative NEGATIVE [facility] Platelet mean volume Auto (B ld) [Entitic vol]on 02-07-2024 Platelet mean volume (Bld) [Entitic vol] 10.1 fL 9.5-13.5 [facility] Platelets Auto (Bld) [#/Vol] on 02-07-2024 Platelets (Bld) [#/Vol] 260 10 3/uL 150-450 [facility] RBC Auto (Bld) [#/Vol]on RBC (Bld) [#/Vol] 4.94 10 6/uL 4.20-5.40 [facility] Serum or plasma albumin/glob ulin mass ratioon 02-07-2024 Albumin/Globulin [Mass ratio] 1.0 {ratio} [facility] Serum or plasma anion gap de terminationon 02-07-2024 Anion gap [Moles/Vol] 12.2 mmol/L [facility] ECG 12 Leadon 01-22-2024 Normal sinus rhythm with normal QTc interval [facility] Work Phone: ECG 12 lead ECGon 01-20-2024 ECG 12 lead ECG [facility] Main [address] [address] Electrocardiograph Report Signed Patient: Lesa Golden MR#: [id number] 8 : 1940 Acct:[id number] Age/Sex: 83 / F ADM Date: 01/18/24 Loc: 3T Room: [address] [place] [address] Type: ADM IN Attending Dr: Izzy Capps [...] Electronic ventricular pacemaker Confirmed by K[facility]ON [facility]IR [facility] ([id number]) on 01/20/2024 1:20:48 PM Referred By: Electronically Signed By:MARGARITA RICHARDSON MD [facility] Transcribed By: MUS Signed By Christopher Richardson MD 01/20/24 1320 Normal [facility] ECG 12 lead ECGon 01-19-2024 ECG 12 lead ECG [facility] Main [address] [address] Electrocardiograph Report Signed Patient: Lesa Golden MR#: [id number] 8 : 1940 Acct:[id number] Age/Sex: 83 / F ADM Date: 01/18/24 Loc: 3T Room: [address] [place] [address] Type: DIS IN Attending Dr: Izzy Capps [...] Mac MD 0 01/22/24 1749 Normal [facility] ECG 12 lead ECG [facility] Main [place] [address] [place] [address] Electrocardiograph Report Signed Patient: Lesa Golden MR#: [id number] 8 : 1940 Acct:[id number] Age/Sex: 83 / F ADM Date: 01/18/24 Loc: Room: [address] [place] [address] Type: ADM IN Attending Dr: Izzy Capps [...] replaced Atrial fibrillation Confirmed by KAVON MUIR [facility] GAT[facility]ARITA Vázquez ([id number]) on 01/20/2024 1:20:24 PM Referred By: Electronically Signed By:MARGARITA RICHARDSON MD FAC Transcribed By: MUS Signed By Christopher Richardson MD 01/20/24 1320 Normal [facility] ECG 12 lead ECG [facility] Main [place] [id number] Electrocardiograph Report Signed Patient: Lesa Golden MR#: [id number] 8 : 1940 Acct:[id number] Age/Sex: 83 / F ADM Date: 01/18/24 Loc: 3T Room: [address] [place] [address] Type: DIS IN Attending Dr: Izzy Capps [...] Mac MD 0 01/22/24 1749 Normal [facility] ECH echo transthoracicon ECH echo transthoracic [facility] Main [place] [id number] Echocardiogram Signed Patient: Lesa Golden MR#: [id number] 8 : 1940 Acct:[id number] Age/Sex: 83 / F ADM Date: 01/18/24 Loc: 3T Room: [address] [place] [address] Type: ADM IN Attending Dr: Izzy Capps [...] mmHg RAP systole: 5.0 mmHg Transcribed By: SCV Performed At: 01/19/24 1236 Signed By: Christopher Richardson MD 01/19/24 1458 Normal [facility] Magnesium [Mass/volume] in S vaughn or PlasmaOrdered By: Izzy Capps on 01-19-2024 Magnesium [Mass/Vol] 1.9 mg/dL Normal 1.9-2.7 [facility] Comment on above: Result Comment: PERF ORMED BY: [facility] [address] [place] [address] PATHOLOGIST EDIPHONE OPERATOR VITOR ZARATE M.D. Performed By: #### M G #### [facility] [address] [place] [id number] [facility] Activated partial thrombopla stin time (aPTT) in platelet poor plasma by coagulation aOrdered By: Vic Mendez on 01-18-2024 aPTT Coag (PPP) [Time] 31.3 s 25.1-36.5 [facility] Comment on above: A hematocrit value g reater than 55% may lead to inaccurate results in coagulation testing. Patients having hematocrit values >55% require a special collection tube for coagulation studies. Please contact the laboratory at [phone] for redraw instructions. Alanine aminotransferase [En zymatic activity/volume] in Serum or PlasmaOrdered By: Vic Mendez on 01-18-2024 ALT [Catalytic activity/Vol] 29 U/L Normal 7-52 [facility] Comment on above: Order Comment: AD[place], REDRAW REQUESTED, NOTIFIED ROSA Vázquez Performed By: #### P TT, CK, CBC, HS TROP, MG, CMP, PT ####[facility] [place] [address] [place] Albumin [Mass/volume] in Ser um or Plasma by Bromocresol green (BCG) dye binding methoOrdered By: Vic Mendez on 01-18-2024 Albumin BCG dye [Mass/Vol] 3.7 g/dL 3.5-5.7 [facility] Alkaline phosphatase [Enzyma tic activity/volume] in Serum or PlasmaOrdered By: Vic Mendez on 01-18-2024 ALP [Catalytic activity/Vol] 63 U/L Normal 34-104 [facility] Comment on above: Order Comment: SAMPL E QNS, REDRAW REQUESTED, NOTIFIED ROSA Vázquez Performed By: #### P TT, CK, CBC, HS TROP, MG, CMP, PT ####[address] Aspartate aminotransferase [ Enzymatic activity/volume] in Serum or PlasmaOrdered By: Vic Mendez on 01-18-2024 AST [Catalytic activity/Vol] 17 U/L Normal 13-39 [facility] Comment on above: Order Comment: SAMPL E QNS, REDRAW REQUESTED, NOTIFIED ROSA Vázquez Performed By: #### P TT, CK, CBC, HS TROP, MG, CMP, PT ####[address] Automated basophil %Ordered By: Vic Mendez on 01-18-2024 Basophils/100 WBC (Bld) 0.5 % Normal . [facility] Comment on above: Performed By: #### P TT, CK, CBC, HS TROP, MG, CMP, PT ####[address] Automated basophil countOrde red By: Vic Mendez on 01-18-2024 Basophils (Bld) [#/Vol] 0.1 10*3/uL Normal 0.0-0.2 [facility] Comment on above: Result Comment: PERF ORMED BY: [facility] [address] [place] [id number] PATHOLOGIST EDIPHONE OPERATOR VITOR ZARATE M.D. Performed By: #### P TT, CK, CBC, HS TROP, MG, CMP, PT ####[address] Automated blood monocyte cou ntOrdered By: Vic Mendez on 01-18-2024 Monocytes (Bld) [#/Vol] 0.8 10*3/uL Normal 0.0-0.8 [facility] Comment on above: Performed By: #### P TT, CK, CBC, HS TROP, MG, CMP, PT ####[address] Automated eosinophil %Ordere d By: Vic Mendez on 01-18-2024 Eosinophils/100 WBC (Bld) 1.2 % Normal . [facility] Comment on above: Performed By: #### P TT, CK, CBC, HS TROP, MG, CMP, PT ####[address] Automated eosinophil countOr dered By: Vic Mendez on 01-18-2024 Eosinophils (Bld) [#/Vol] 0.1 10*3/uL Normal 0.0-0.45 [facility] Comment on above: Performed By: #### P TT, CK, CBC, HS TROP, MG, CMP, PT ####[address] Automated monocyte %Ordered By: Vic Mendez on 01-18-2024 Monocytes/100 WBC (Bld) 7.6 % Normal . [facility] Comment on above: Performed By: #### P TT, CK, CBC, HS TROP, MG, CMP, PT ####[address] Automated neutrophil %Ordere d By: Vic Mendez on 01-18-2024 Neutrophils/100 WBC (Bld) 81.5 % Normal . [facility] Comment on above: Performed By: #### P TT, CK, CBC, HS TROP, MG, CMP, PT ####[address] Bilirubin.total [Mass/volume ] in Serum or PlasmaOrdered By: Vic Mendez on 01-18-2024 Bilirubin [Mass/Vol] 0.9 mg/dL Normal 0.3-1.0 [facility] Comment on above: Order Comment: SAMPL E QNS, REDRAW REQUESTED, NOTIFIED ROSA Vázquez Performed By: #### P TT, CK, CBC, HS TROP, MG, CMP, PT ####[place] [id number] [address] Calcium [Mass/volume] in Ser um or PlasmaOrdered By: Vic Mendez on 01-18-2024 Calcium [Mass/Vol] 9.2 mg/dL Normal 8.6-10.3 [facility] Comment on above: Order Comment: SAMPL E QNS, REDRAW REQUESTED, NOTIFIED ROSA Vázquez Performed By: #### P TT, CK, CBC, HS TROP, MG, CMP, PT ####[place] [address] [address] Carbon dioxide, total [Moles /volume] in Serum or PlasmaOrdered By: Vic Mendez on 01-18-2024 CO2 [Moles/Vol] 23.4 mmol/L Normal 21.0-31.0 [facility] Comment on above: Order Comment: SAMPL E QNS, REDRAW REQUESTED, NOTIFIED ROSA Vázquez Performed By: #### P TT, CK, CBC, HS TROP, MG, CMP, PT ####[address] Chloride [Moles/volume] in S vaughn or PlasmaOrdered By: Vic Mendez on 01-18-2024 Chloride [Moles/Vol] 108 mmol/L High 98-107 [facility] Comment on above: Order Comment: SAMPL E QNS, REDRAW REQUESTED, NOTIFIED ROSA Vázquez Performed By: #### P TT, CK, CBC, HS TROP, MG, CMP, PT ####[place] [id number] [facility] Complete Blood Count Auto Di ffon 01-18-2024 Mean Corpuscular HGB Conc 33.7 g/dL Normal 32.0-35.0 [facility] Comment on above: Performed By: #### P TT, CK, CBC, HS TROP, MG, CMP, PT ####[place] [id number] [place] Monocytes/100 WBC (Bld) 18.06 % Normal 0.00-20.00 [facility] Comment on above: Performed By: #### P TT, CK, CBC, HS TROP, MG, CMP, PT ####[address] NRBC% 0.1 /100{WBC} Normal 0-0.5 [facility] Comment on above: Performed By: #### P TT, CK, CBC, HS TROP, MG, CMP, PT ####[address] Comprehensive Metabolic Pane mir 01-18-2024 Albumin [Mass/Vol] 3.7 g/dL Normal 3.5-5.7 [facility] Comment on above: Order Comment: SAMPL E QNS, REDRAW REQUESTED, NOTIFIED ROSA Vázquez Performed By: #### P TT, CK, CBC, HS TROP, MG, CMP, PT ####[address] Creatinine Clr Calc Pharmacy 40.09 Normal [facility] Comment on above: Order Comment: SAMPL E QNS, REDRAW REQUESTED, NOTIFIED ROSA Vázquez Performed By: #### P TT, CK, CBC, HS TROP, MG, CMP, PT ####[address] GFR/1.73 sq M.predicted MDRD (S/P/Bld) [Vol rate/Area] 59.440 mL/min/{1.73_m2} Normal [facility] Comment on above: Order Comment: SAMPL E QNS, REDRAW REQUESTED, NOTIFIED ROSA Vázquez Performed By: #### P TT, CK, CBC, HS TROP, MG, CMP, PT ####[address] Creatine kinase [Enzymatic a ctivity/volume] in Serum or PlasmaOrdered By: Vic Mendez on 01-18-2024 CK [Catalytic activity/Vol] 31 U/L Normal 30-223 [facility] Comment on above: Performed By: #### P TT, CK, CBC, HS TROP, MG, CMP, PT ####[facility] [address] [place] [id number] [facility] Creatinine [Mass/volume] in Serum or PlasmaOrdered By: Vic Mendez on 01-18-2024 Creatinine [Mass/Vol] 0.96 mg/dL Normal 0.60-1.20 [facility] Comment on above: Order Comment: SAMPL E QNS, REDRAW REQUESTED, NOTIFIED RN DOYLE Vázquez Performed By: #### P TT, CK, CBC, HS TROP, MG, CMP, PT ####[facility] [address] [place] [address] [facility] ECG 12 lead ECGon 01-18-2024 ECG 12 lead ECG [facility] [address] [place] [address] [place] [address] Electrocardiograph Report Signed Patient: Lesa Golden MR#: [id number] 8 : 1940 Acct:[id number] Age/Sex: 83 / F ADM Date: 01/18/24 Loc: Room: [address] [place] [address] Type: ADM IN Attending Dr: Izzy Capps MD Ordering Provider: Vic Mendez PA-C Date of Service: 01/18/24 ECG/ECG [...] Anterior infarct present Confirmed by KAVON MUIR FACMARGARITA Vázquez ([id number]) on 01/20/2024 1:20:19 PM Referred By: Electronically Signed By:MARGARIAT RICHARDSON MD FACC Transcribed By: MUS Signed By Christopher Richardson MD 01/20/24 1320 Normal [facility] Erythrocyte distribution wid th [Ratio] by Automated countOrdered By: Vic Mendez on 01-18-2024 Erythrocyte distribution width (RBC) [Ratio] 14.1 % Normal 11.9-15.3 [facility] Comment on above: Performed By: #### P TT, CK, CBC, HS TROP, MG, CMP, PT ####[place] [address] [place] [id number] [facility] Erythrocytes [#/volume] in B lood by Automated countOrdered By: Vic Mendez on 01-18-2024 RBC (Bld) [#/Vol] 4.96 10*6/uL Normal 3.60-5.00 [facility] Comment on above: Performed By: #### P TT, CK, CBC, HS TROP, MG, CMP, PT ####[place] [address] [place] [id number] [facility] Glucose [Mass/volume] in Ser um or PlasmaOrdered By: Vic Mendez on 01-18-2024 Glucose [Mass/Vol] 102 mg/dL High 70-100 [facility] Comment on above: ADA recommended refe rence rangeRandom Glucose Reference Range is dependent on time and content of last meal. Glucose of more than 200 mg/dL in a nonstressed, ambulatory subject supports the diagnosis of Diabetes Mellitus. Order Comment: ADÁN [place], REDRAW REQUESTED, NOTIFIED ROSA Vázquez Result Comment: Randolph Glucose Reference Range is dependent on time and content of last meal. Glucose of more than 200 mg/dL in a nonstressed, ambulatory subject supports the diagnosis of Diabetes Mellitus. ADA recommended reference range Performed By: #### P TT, CK, CBC, HS TROP, MG, CMP, PT ####[facility] [place] [address] [facility] Hematocrit [Volume Fraction] of Blood by Automated countOrdered By: Vic Mendez on 01-18-2024 Hematocrit (Bld) [Volume fraction] 45.9 % Normal 34.0-46.4 [facility] Comment on above: Performed By: #### P TT, CK, CBC, HS TROP, MG, CMP, PT ####[facility] Hemoglobin [Mass/volume] in BloodOrdered By: Vic Mendez on 01-18-2024 Hemoglobin (Bld) [Mass/Vol] 15.5 g/dL High 11.8-15.4 [facility] Comment on above: Performed By: #### P TT, CK, CBC, HS TROP, MG, CMP, PT ####[place] [address] [address] INR in Platelet poor plasma by Coagulation assayOrdered By: Vic Mendez on 01-18-2024 INR Coag (PPP) [Relative time] 1.5 {INR} Normal [facility] Comment on above: INR Therapeutic Rang [...] CK, CBC, HS TROP, MG, CMP, PT ####[address] Leukocytes [#/volume] correc anne marie for nucleated erythrocytes in Blood by Automated counOrdered By: Vic Mendez on 01-18-2024 WBC corrected for nucl RBC Auto (Bld) [#/Vol] 10.4 10*3/uL 3.8-11.6 [facility] Leukocytes [#/volume] in Blo od by Automated countOrdered By: Vic Mendez on 01-18-2024 WBC (Bld) [#/Vol] 10.4 10*3/uL Normal 3.8-11.6 [facility] Comment on above: Performed By: #### P TT, CK, CBC, HS TROP, MG, CMP, PT ####[address] Lymphocytes [#/volume] in Bl ood by Automated countOrdered By: Vic Mendez on 01-18-2024 Lymphocytes (Bld) [#/Vol] 1.0 10*3/uL Normal 1.00-4.8 [facility] Comment on above: Performed By: #### P TT, CK, CBC, HS TROP, MG, CMP, PT ####[address] Lymphocytes/100 leukocytes i n Blood by Automated countOrdered By: Vic Mendez on 01-18-2024 Lymphocytes/100 WBC (Bld) 9.2 % Normal . [facility] Comment on above: Performed By: #### P TT, CK, CBC, HS TROP, MG, CMP, PT ####[address] MCH [Entitic mass] by Automa anne marie countOrdered By: Vic Mendez on 01-18-2024 MCH (RBC) [Entitic mass] 31.2 pg Normal 24.7-34.3 [facility] Comment on above: Performed By: #### P TT, CK, CBC, HS TROP, MG, CMP, PT ####[address] MCHC Auto (RBC) [Mass/Vol]Or dered By: Vic Mendez on 01-18-2024 MCHC (RBC) [Mass/Vol] 33.7 g/dL 32.0-35.0 [facility] MCV [Entitic volume] by Auto mated countOrdered By: Vic Mendez on 01-18-2024 MCV (RBC) [Entitic vol] 92.6 fL Normal 80-100 [facility] Comment on above: Performed By: #### P TT, CK, CBC, HS TROP, MG, CMP, PT ####[address] [address] [facility] Magnesium [Mass/volume] in S vaughn or PlasmaOrdered By: Vic Mendez on 01-18-2024 Magnesium [Mass/Vol] 1.9 mg/dL Normal 1.9-2.7 [facility] Comment on above: Order Comment: SAMPL E QNS, REDRAW REQUESTED, NOTIFIED ROSA Vázquez Result Comment: PERF ORMED BY: [facility] [address] [place] [id number] PATHOLOGIST EDIPHONE OPERATOR VITOR ZARATE M.D. Performed By: #### P TT, CK, CBC, HS TROP, MG, CMP, PT ####[facility] [address] Monocyte distribution width [Entitic volume] in Blood by AutomatedOrdered By: Vic Mendez on 01-18-2024 Monocyte distribution width Auto (Bld) [Entitic vol] 18.06 % 0.00-20.00 [facility] Neutrophils [#/volume] in Bl ood by Automated countOrdered By: Vic Mendez on 01-18-2024 Neutrophils (Bld) [#/Vol] 8.5 10*3/uL High 1.8-7.7 [facility] Comment on above: Performed By: #### P TT, CK, CBC, HS TROP, MG, CMP, PT ####[facility] [address] [place] [id number] [facility] No Panel InformationOrdered By: Vic Mendez on 01-18-2024 Estimated GFR (CKD-EPI) 59.440 mL/Min [facility] Creatinine Clearance (Chem 40.09 [facility] Nucleated erythrocytes [Pres ence] in Blood by Automated countOrdered By: Vic Mendez on 01-18-2024 Nucleated RBC Auto Ql (Bld) 0.1 /100{WBC} 0-0.5 [facility] Partial Thromboplastin Timeo n 01-18-2024 aPTT Coag (Bld) [Time] 31.3 s Normal 25.1-36.5 [facility] Comment on above: Result Comment: A he matocrit value greater than 55% may lead to inaccurate results in coagulation testing. Patients having hematocrit values >55% require a special collection tube for coagulation studies. Please contact the laboratory at [phone] for redraw instructions. PERFORMED BY: [place] [address] [place] [id number] PATHOLOGIST EDIPHONE OPERATOR VITOR ZARATE M.D. Performed By: #### P TT, CK, CBC, HS TROP, MG, CMP, PT ####[place] [id number] [place] Platelet mean volume [Entiti c volume] in Blood by Automated countOrdered By: Vic Mendez on 01-18-2024 Platelet mean volume (Bld) [Entitic vol] 8.5 fL Normal 6.3-10.7 [facility] Comment on above: Performed By: #### P TT, CK, CBC, HS TROP, MG, CMP, PT ####[place] [id number] [facility] Platelets [#/volume] in Bloo d by Automated countOrdered By: Vic Mendez on 01-18-2024 Platelets (Bld) [#/Vol] 205 10*3/uL Normal 150-450 [facility] Comment on above: Performed By: #### P TT, CK, CBC, HS TROP, MG, CMP, PT ####[place] [id number] [facility] Potassium [Moles/volume] in Serum or PlasmaOrdered By: Vic Mendez on 01-18-2024 Potassium [Moles/Vol] 4.1 mmol/L Normal 3.5-5.1 [facility] Comment on above: Order Comment: SAMPL E QNS, REDRAW REQUESTED, NOTIFIED ROSA Vázquez Performed By: #### P TT, CK, CBC, HS TROP, MG, CMP, PT ####[place] [id number] [place] Protein [Mass/volume] in Ser um or PlasmaOrdered By: Vic Mendez on 01-18-2024 Protein [Mass/Vol] 6.0 g/dL Low 6.4-8.9 [facility] Comment on above: Order Comment: SAMPL E QNS, REDRAW REQUESTED, NOTIFIED ROSA Vázquez Performed By: #### P TT, CK, CBC, HS TROP, MG, CMP, PT ####[address] Prothrombin time (PT)Ordered By: Vic Mendez on 01-18-2024 PT Coag (PPP) [Time] 16.8 s High 9.0-12.9 [facility] Comment on above: A hematocrit value g reater than 55% may lead to inaccurate results in coagulation testing. Patients having hematocrit values >55% require a special collection tube for coagulation studies. Please contact the laboratory at [phone] for redraw instructions. Result Comment: A he matocrit value greater than 55% may lead to inaccurate results in coagulation testing. Patients having hematocrit values >55% require a special collection tube for coagulation studies. Please contact the laboratory at [phone] for redraw instructions. Performed By: #### P TT, CK, CBC, HS TROP, MG, CMP, PT ####[address] Serum globulin measurement b y calculation (mass/volume)Ordered By: Vic Mendez on 01-18-2024 Globulin (S) [Mass/Vol] 2.3 g/dL [facility] Comment on above: Order Comment: ADÁN RiveroNS, REDRAW REQUESTED, NOTIFIED ROSA Vázquez Performed By: #### P TT, CK, CBC, HS TROP, MG, CMP, PT ####[address] Serum or plasma albumin/glob ulin mass ratioOrdered By: Vic Mendez on 01-18-2024 Albumin/Globulin [Mass ratio] 1.6 {ratio} [facility] Comment on above: Order Comment: ADÁN E QNS, REDRAW REQUESTED, NOTIFIED ROSA Vázquez Performed By: #### P TT, CK, CBC, HS TROP, MG, CMP, PT ####[address] Serum or plasma anion gap de terminationOrdered By: Vic Mendez on 01-18-2024 Anion gap [Moles/Vol] 11.7 mmol/L Normal 6.0-15.0 [facility] Comment on above: Order Comment: SAMPL E QNS, REDRAW REQUESTED, NOTIFIED ROSA Vázquez Performed By: #### P TT, CK, CBC, HS TROP, MG, CMP, PT ####[place] [id number] [facility] Sodium [Moles/volume] in Ser um or PlasmaOrdered By: Vic Mnedez on 01-18-2024 Sodium [Moles/Vol] 139 mmol/L Normal 136-145 [facility] Comment on above: Order Comment: SAMPL E QNS, REDRAW REQUESTED, NOTIFIED ROSA Vázquez Performed By: #### P TT, CK, CBC, HS TROP, MG, CMP, PT ####[place] [id number] [facility] Thyrotropin [Units/volume] i n Serum or PlasmaOrdered By: Izzy Capps on 01-18-2024 TSH Qn 0.83 m[IU]/L Normal 0.45-5.33 [facility] Comment on above: Order Comment: Comme nt Add on Result Comment: PERF ORMED BY: [facility] [address] [place] [id number] PATHOLOGIST EDIPHONE OPERATOR VITOR ZARATE M.D. Performed By: #### T SH3 ####[place] [id number] [facility] Troponin I High Sensitivityo n 01-18-2024 Troponin I High Sensitivity 14.7 pg/mL Normal 0.0-15.0 [facility] Comment on above: Result Comment: PERF ORMED BY: [facility] [address] [place] [address] PATHOLOGIST EDIPHONE OPERATOR VITOR ZARATE M.D. Performed By: #### P TT, CK, CBC, HS TROP, MG, CMP, PT ####[place] [id number] [facility] Troponin I.cardiac [Mass/vol ume] in Serum or Plasma by Detection limit <= 0.01 ng/Ordered By: Vic Mendez on 01-18-2024 Troponin I.cardiac DL <= 0.01 ng/mL [Mass/Vol] 14.7 pg/mL 0.0-15.0 [facility] Urea nitrogen [Mass/volume] in Serum or PlasmaOrdered By: Vic Mendez on 01-18-2024 Urea nitrogen [Mass/Vol] 29 mg/dL High 7-25 [facility] Comment on above: Order Comment: ADÁN RiveroNS, REDRAW REQUESTED, NOTIFIED RN DOYLE Vázquez Performed By: #### P TT, CK, CBC, HS TROP, MG, CMP, PT ####[facility] [address] XR chest 1V portableon 01-17 XR [place] 1[place] [address] XRay Report Signed Patient: Lesa Golden MR#: [id number] 8 : 1940 Acct:[id number] Age/Sex: 83 / F ADM Date: 01/18/24 Loc: ER Room: Type: [facility] ER Attending Dr: Copies to: Vic Mendez [...] FINDINGS. Impression dictated by: Nnamdi Carson Jr., D.O.01/18/2024 3:37 PM Dictation Location: [facility]15 Transcribed By: [facility] 01/18/24 153 Dictated By: Nnamdi Carson Jr, DO 01/18/24 1536 Signed By: 01/18/24 153 Normal [facility] MR lumbar spine wo conon MR lumbar spine wo con [facility] [place] [address] [place] [address] MRI Report Signed Patient: Lesa Golden MR#: [id number] 8 : 1940 Acct:[id number] Age/Sex: 83 / F ADM Date: 11/21/23 Loc: MR Room: Type: [facility] Attending Dr: Yesica Astudillo MD Copies to: [...] Juanito Borja M.D.11/21/2023 5:55 PM Dictation Location: [place] [address] Transcribed By: [facility] 11/21/231754 Dictated By: Juanito Borja DO 11/21/231749 Signed By: 11/21/231754 Normal [facility] ECG 12 Leadon 09-19-2023 Rhythm appeared to b e atrial flutter with 2/ 1 AV block with nonspecific ST-T changes [facility] Work Phone: US Heart Transthoracicon Aortic Valve Area by Continuity of Peak Velocity 2.36 [facility] Work Phone: [phone] Aortic Valve Area by Continuity of VTI 2.33 [facility] Work Phone: [phone] AV mn grad 2.0 [facility] Work Phone: [phone] AV pk grad 3.5 [facility] Work Phone: [phone] AV pk douglas 0.94 [facility] Work Phone: [phone] LV A4C EF 63.6 [facility] Work Phone: [phone] LVIDd 3.20 [facility] Work Phone: [phone] LVOT diam 1.90 [facility] Work Phone: MV avg E/e' ratio 20.20 [facility] Work Phone: [phone] RVSP 32.8 [facility] Work Phone: [address], [address] [facility], [place] [address] TRANSTHORACIC ECHOCARDIOGRAM REPORT Patient Name: LESA Arriaga Physician: Zurdo Mac MD Study Date: 08/21/2023 Ordering Provider: Zurdo MAC MRN/PID: [id number] Fellow: Nurse: Date of /Age: 1 1940 / 82 years Distribution Systems Superintendent: Iqra Pham RDCS, RVT Gender: F Additional Staff: Height: 149.86 cm Admit Date: Weight: 74.84 kg Admission Status: BSA: 1.70 m2 Department Location: [facility] Blood Pressure: 116 /64 mmHg Study Type: TRANSTHORACIC ECHO (TTE) COMPLETE Diagnosis/ICD: Chronic diastolic (congestive) heart failure (CHF)-I50.32; Essential (primary) hypertension-I10; Dyspnea, unspecified-R06.00 Indication: Atrial Fibrillation, Sick Sinus Syndrome, Hyerlipidemia, Pacemaker, Overweight, CKD-Stage III CPT Codes: Echo Complete w Full Doppler-30211 Study Detail: The following Echo studies were [...] not included)... Debbie Dominique MD - 08/22/2023 [facility] [address] [facility], [address], [place] [address] TRANSTHORACIC ECHOCARDIOGRAM REPORT Patient Name: LESA GOLDEN Reading Physician: Zurdo Mac MD Study Date: 08/21/2023 Ordering Provider: Zurdo MAC MRN/PID: [id number] Fellow: Nurse: Date of /Age: 1 1940 / 82 years Distribution Systems Superintendent: Iqra Pham RDCS, RVT Gender: F Additional Staff: Height: 149.86 cm Admit Date: Weight: 74.84 kg Admission Status: BSA: 1.70 m2 Department Location: [facility] Blood Pressure: 116 /64 mmHg Study Type: TRANSTHORACIC ECHO (TTE) COMPLETE Diagnosis/ICD: Chronic diastolic (congestive) heart failure (CHF)-I50.32; Essential (primary) hypertension-I10; Dyspnea, unspecified-R06.00 Indication: Atrial Fibrillation, Sick Sinus Syndrome, Hyerlipidemia, Pacemaker, Overweight, CKD-Stage III CPT Codes: Echo Complete w Full Doppler-10101 Study Detail: The following Echo studies were [...] 0.7 m/s (0.6-0.9m/s) PV Max P.8 mmHg Zurdo Mac MD Electronically signed on 08/22/2023 at 12:31:20 PM Final [facility] Work Phone: [facility] Work Phone: TRANSTHORACIC ECHO (TTE) [facility] 08-21-2023 TRANSTHORACIC ECHO (TTE) [address], [address] [place] [address] TRANSTHORACIC ECHOCARDIOGRAM REPORT Patient Name: LESA Allred CHANTEL Arriaga Physician: Zurdo Mac MD Study Date: 08/21/2023 Ordering Provider: Zurdo MAC MRN/PID: [id number] Fellow: Nurse: Date of /Age: 1 1940 / 82 years Distribution Systems Superintendent: Iqra Phma RDCS, RVT Gender: F Additional Staff: Height: 149.86 cm Admit Date: Weight: 74.84 kg Admission Status: BSA: 1.70 m2 Department Location: [facility] Blood Pressure: 116 /64 mmHg Study Type: TRANSTHORACIC ECHO (TTE) COMPLETE Diagnosis/ICD: Chronic diastolic (congestive) heart failure (CHF)-I50.32; Essential (primary) hypertension-I10; Dyspnea, unspecified-R06.00 Indication: Atrial Fibrillation, Sick Sinus Syndrome, Hyerlipidemia, Pacemaker, Overweight, CKD-Stage III CPT Codes: Echo Complete w Full Doppler-67199 Study Detail: The following Echo studies were [...] 0.7 m/s (0.6-0.9m/s) PV Max P.8 mmHg [id number] Debbie Mac MD Electronically signed on 08/22/2023 at 12:31:20 PM Final Normal [facility] ECG 12 Leadon 05-31-2023 Paced atrial rhythm with normal QTc interval [facility] Work Phone: Alkaline phosphatase [Enzyma tic activity/volume] in Serum or PlasmaOrdered By: Wilbur Watson on 03-05-2023 ALP [Catalytic activity/Vol] 82 U/L Normal 34-104 [facility] Comment on above: Performed By: #### L IPASE, ALP, AST, GERRY, BILTD ####[facility] Amylase [Enzymatic activity/ volume] in Serum or PlasmaOrdered By: Wilbur Watson on 03-05-2023 Amylase [Catalytic activity/Vol] 32 U/L Normal 29-103 [facility] Comment on above: Performed By: #### L IPASE, ALP, AST, GERRY, BILTD ####[address] Aspartate aminotransferase [ Enzymatic activity/volume] in Serum or PlasmaOrdered By: Wilbur Watson on 03-05-2023 AST [Catalytic activity/Vol] 19 U/L Normal 13-39 [facility] Comment on above: Performed By: #### L IPASE, ALP, AST, GERRY, BILTD #### [facility] [address] [place] [address] [place] Bilirubin, Total and Directo n 03-05-2023 Bilirubin,Indirect 0.5 mg/dL Normal [facility] Comment on above: Performed By: #### L IPASE, ALP, AST, GERRY, BILTD #### [facility] [address] [place] [address] [place] Bilirubin.indirect [Mass/Vol] 0.20 mg/dL High 0.03-0.18 [facility] Comment on above: Performed By: #### L IPASE, ALP, AST, GERRY, BILTD #### [facility] [address] Bilirubin.direct [Mass/volum e] in Serum or PlasmaOrdered By: Wilbur Watson on 03-05-2023 Bilirubin.direct [Mass/Vol] 0.20 mg/dL 0.03-0.18 [facility] Bilirubin.total [Mass/volume ] in Serum or PlasmaOrdered By: Wilbur Watson on 03-05-2023 Bilirubin [Mass/Vol] 0.7 mg/dL Normal 0.3-1.0 [facility] Comment on above: Performed By: #### L IPASE, ALP, AST, GERRY, BILTD #### [facility] [address] Mir 03-05-2023 L ------ Specimen: [id number] Received: 03/05/23 Status: GLORIA Shetty Num: [id number] Spec Type: Surgical Subm Dr: Wilbur Watson DO Tissues: A Gallbladder (GALLBLADDER) Procedures: Montez MARCUS/Nette L3 Age/ Patient Sex Location Account Attending Physician ChantelLesa Chalino 82/F [place] [id number] Wilbur Watson,DO SPEC NUM: [id number] RECD: 03/05/23 STATUS: GLORIA SHETTY NUM: [id number] BRENDAN: 03/05/[address] [facility] [address]: Wilbur Watson DO ENTERED: 03/05/[address] [facility] [address]: BRITTNEY TYPE: Surgical DEPT: S ORDERED: [...] is inked, measuring 0.3 cm in diameter. [employer] T[employer] sections are submitted in one cassette labeled A1. Microscopic Description One H E slide reviewed. The microscopic examination confirms the diagnosis. Specimen: [id number] Received: 03/05/23 Status: GLORIA Shetty Num: [id number] Spec Type: Surgical Subm Dr: Wilbur Watson DO Tissues: A Gallbladder (GALLBLADDER) Procedures: Danielle MARCUS Patient: Lesa Golden [id number] (Continued) Specimen: [id number] Received: 03/05/23 (Continued) Signed (signature on file) Emeka Aquino MD 03/07/23 1159 Specimen: [id number] Received: 03/05/23 Status: GLORIA Shetty Num: [id number] Spec Type: Surgical Subm Dr: Wilbur Watson DO Tissues: A Gallbladder (GALLBLADDER) Procedures: Danielle MARCUS Patient: Lesa Golden [id number] (Continued) Specimen: [id number] Received: 03/05/23 (Continued) CPT Codes 86717 Specimen: [id number] Received: 03/05/23 Status: GLORIA Shetty Num: [id number] Spec Type: Surgical Subm Dr: Wilbur Watson DO Tissues: A Gallbladder (GALLBLADDER) Procedures: Montez MARCUS/Nette L3 Patient: Lesa Golden [id number] (Continued) Signed (signature on file) Emeka Aquino MD 03/07/23 1159 Normal [facility] Lipase [Enzymatic activity/v olume] in Serum or PlasmaOrdered By: Wilbur Watson on 03-05-2023 Lipase [Catalytic activity/Vol] 31.0 U/L Normal 11.0-82.0 [facility] Comment on above: Result Comment: PERF ORMED BY: [facility] [address] [place] [address] PATHOLOGIST EDIPHONE OPERATOR VITOR ZARATE M.D. Performed By: #### L IPASE, ALP, AST, GERRY, BILTD ####[facility] [address] Serum or plasma non-glucuron idated bilirubin measurement (mass/volume)Ordered By: Wilbur Watson on 03-05-2023 Bilirubin.indirect [Mass/Vol] 0.5 mg/dL [facility] Automated basophil %Ordered By: Wilbur Watson on 02-26-2023 Basophils/100 WBC (Bld) 0.5 % Normal . [facility] Comment on above: Performed By: #### C BC, BMP #### [facility] [address] Automated basophil countOrde red By: Wilbur Watson on 02-26-2023 Basophils (Bld) [#/Vol] 0.0 10*3/uL Normal 0.0-0.2 [facility] Comment on above: Result Comment: PERF ORMED BY: [facility] [address] [place] [address] PATHOLOGIST EDIPHONE OPERATOR VITOR ZARATE M.D. Performed By: #### C BC, BMP #### [address] Automated blood monocyte cou ntOrdered By: Wilbur Watson on 02-26-2023 Monocytes (Bld) [#/Vol] 0.6 10*3/uL Normal 0.0-0.8 [facility] Comment on above: Performed By: #### C BC, BMP #### [address] Automated eosinophil %Ordere d By: Wilbur Watson on 02-26-2023 Eosinophils/100 WBC (Bld) 2.2 % Normal . [facility] Comment on above: Performed By: #### C BC, BMP #### [address] Automated eosinophil countOr dered By: Wilbur Watson on 02-26-2023 Eosinophils (Bld) [#/Vol] 0.2 10*3/uL Normal 0.0-0.45 [facility] Comment on above: Performed By: #### C BC, BMP #### [address] Automated monocyte %Ordered By: Wilbur Watson on 02-26-2023 Monocytes/100 WBC (Bld) 7.1 % Normal . [facility] Comment on above: Performed By: #### C BC, BMP #### [address] Automated neutrophil %Ordere d By: Wilbur Watson on 02-26-2023 Neutrophils/100 WBC (Bld) 79.9 % Normal . [facility] Comment on above: Performed By: #### C BC, BMP #### [address] Basic Metabolic Panelon 02-17 GFR/1.73 sq M.predicted MDRD (S/P/Bld) [Vol rate/Area] 54.967 mL/min/{1.73_m2} Normal [facility] Comment on above: Performed By: #### C BC, BMP #### [facility] [address] Calcium [Mass/volume] in Ser um or PlasmaOrdered By: Wilbur Watson on 02-26-2023 Calcium [Mass/Vol] 9.0 mg/dL Normal 8.6-10.3 [facility] Comment on above: Result Comment: PERF ORMED BY: [place] [address] PATHOLOGIST EDIPHONE OPERATOR VITOR ZARATE M.D. Performed By: #### C BC, BMP #### [address] Carbon dioxide, total [Moles /volume] in Serum or PlasmaOrdered By: Wilbur Watson on 02-26-2023 CO2 [Moles/Vol] 24.7 mmol/L Normal 21.0-31.0 [facility] Comment on above: Performed By: #### C BC, BMP #### [address] Chloride [Moles/volume] in S vaughn or PlasmaOrdered By: Wilbur Watson on 02-26-2023 Chloride [Moles/Vol] 108 mmol/L High 98-107 [facility] Comment on above: Performed By: #### C BC, BMP #### [address] Complete Blood Count Auto Di ffon 02-26-2023 Mean Corpuscular HGB Conc 33.8 g/dL Normal 32.0-35.0 [facility] Comment on above: Performed By: #### C BC, BMP #### [place] [address] [place] NRBC% 0.0 /100{WBC} Normal 0-0.5 [facility] Comment on above: Performed By: #### C BC, BMP #### [place] [address] [place] Creatinine [Mass/volume] in Serum or PlasmaOrdered By: Wilbur Watson on 02-26-2023 Creatinine [Mass/Vol] 1.03 mg/dL Normal 0.60-1.20 [facility] Comment on above: Performed By: #### C ABI, BMP #### [facility] [address] Erythrocyte distribution wid th [Ratio] by Automated countOrdered By: Wilbur Watson on 02-26-2023 Erythrocyte distribution width (RBC) [Ratio] 13.8 % Normal 11.9-15.3 [facility] Comment on above: Performed By: #### C ABI, BMP #### [facility] [address] Erythrocytes [#/volume] in B lood by Automated countOrdered By: Wilbur Watson on 02-26-2023 RBC (Bld) [#/Vol] 4.88 10*6/uL Normal 3.60-5.00 [facility] Comment on above: Performed By: #### C ABI, BMP #### [facility] [address] Glucose [Mass/volume] in Ser um or PlasmaOrdered By: Wilbur Watson on 02-26-2023 Glucose [Mass/Vol] 81 mg/dL Normal 70-100 [facility] Comment on above: ADA recommended refe rence rangeRandom Glucose Reference Range is dependent on time and content of last meal. Glucose of more than 200 mg/dL in a nonstressed, ambulatory subject supports the diagnosis of Diabetes Mellitus. Result Comment: [place] om Glucose Reference Range is dependent on time and content of last meal. Glucose of more than 200 mg/dL in a nonstressed, ambulatory subject supports the diagnosis of Diabetes Mellitus. ADA recommended reference range Performed By: #### C BC, BMP #### [address] Hematocrit [Volume Fraction] of Blood by Automated countOrdered By: Wilbur Watson on 02-26-2023 Hematocrit (Bld) [Volume fraction] 44.1 % Normal 34.0-46.4 [facility] Comment on above: Performed By: #### C BC, BMP #### [address] Hemoglobin [Mass/volume] in BloodOrdered By: Wilbur Watson on 02-26-2023 Hemoglobin (Bld) [Mass/Vol] 14.9 g/dL Normal 11.8-15.4 [facility] Comment on above: Performed By: #### C BC, BMP #### [address] Leukocytes [#/volume] correc anne marie for nucleated erythrocytes in Blood by Automated counOrdered By: Wilbur Watson on 02-26-2023 WBC corrected for nucl RBC Auto (Bld) [#/Vol] 8.3 10*3/uL 3.8-11.6 [facility] Leukocytes [#/volume] in Blo od by Automated countOrdered By: Wilbur Watson on 02-26-2023 WBC (Bld) [#/Vol] 8.3 10*3/uL Normal 3.8-11.6 [facility] Comment on above: Performed By: #### C ABI, BMP #### [place] [address] [place] Lymphocytes [#/volume] in Bl ood by Automated countOrdered By: Wilbur Watson on 02-26-2023 Lymphocytes (Bld) [#/Vol] 0.9 10*3/uL Low 1.00-4.8 [facility] Comment on above: Performed By: #### C ABI, BMP #### [place] [address] [place] Lymphocytes/100 leukocytes i n Blood by Automated countOrdered By: Wilbur Watson on 02-26-2023 Lymphocytes/100 WBC (Bld) 10.3 % Normal . [facility] Comment on above: Performed By: #### C BC, BMP #### [place] [address] [place] MCH [Entitic mass] by Automa anne marie countOrdered By: Wilbur Watson on 02-26-2023 MCH (RBC) [Entitic mass] 30.5 pg Normal 24.7-34.3 [facility] Comment on above: Performed By: #### C BC, BMP #### [facility] [address] [place] [address] MCHC Auto (RBC) [Mass/Vol]Or dered By: Wilbur Watson on 02-26-2023 MCHC (RBC) [Mass/Vol] 33.8 g/dL 32.0-35.0 [facility] MCV [Entitic volume] by Auto mated countOrdered By: Wilbur Watson on 02-26-2023 MCV (RBC) [Entitic vol] 90.4 fL Normal 80-100 [facility] Comment on above: Performed By: #### C ABI, BMP #### [address] Neutrophils [#/volume] in Bl ood by Automated countOrdered By: Wilbur Watson on 02-26-2023 Neutrophils (Bld) [#/Vol] 6.6 10*3/uL Normal 1.8-7.7 [facility] Comment on above: Performed By: #### C ABI, BMP #### [address] No Panel InformationOrdered By: Wilbur Watson on 02-26-2023 Estimated GFR (CKD-EPI) 54.967 mL/Min [facility] Creatinine Clearance (Chem N/A [facility] Nucleated erythrocytes [Pres ence] in Blood by Automated countOrdered By: Wilbur Watson on 02-26-2023 Nucleated RBC Auto Ql (Bld) 0.0 /100{WBC} 0-0.5 [facility] Platelet mean volume [Entiti c volume] in Blood by Automated countOrdered By: Wilbur Watson on 02-26-2023 Platelet mean volume (Bld) [Entitic vol] 8.9 fL Normal 6.3-10.7 [facility] Comment on above: Performed By: #### C BC, BMP #### [address] Platelets [#/volume] in Bloo d by Automated countOrdered By: Wilbur Watson on 02-26-2023 Platelets (Bld) [#/Vol] 194 10*3/uL Normal 150-450 [facility] Comment on above: Performed By: #### C BC, BMP #### [address] Potassium [Moles/volume] in Serum or PlasmaOrdered By: Wilbur Watson on 02-26-2023 Potassium [Moles/Vol] 4.3 mmol/L Normal 3.5-5.1 [facility] Comment on above: Performed By: #### C BC, BMP #### [facility] [address] Serum or plasma anion gap de terminationOrdered By: Wilbur Watson on 02-26-2023 Anion gap [Moles/Vol] 12.6 mmol/L Normal 6.0-15.0 [facility] Comment on above: Performed By: #### C ABI, BMP #### [address] Sodium [Moles/volume] in Ser um or PlasmaOrdered By: Wilbur Watson on 02-26-2023 Sodium [Moles/Vol] 141 mmol/L Normal 136-145 [facility] Comment on above: Performed By: #### C BC, BMP #### [address] Urea nitrogen [Mass/volume] in Serum or PlasmaOrdered By: Wilbur Watson on 02-26-2023 Urea nitrogen [Mass/Vol] 32 mg/dL High 7-25 [facility] Comment on above: Performed By: #### C BC, BMP #### [address] Falls Screening (Age 18+)on 01-25-2023 Fall risk assessment a) No falls within the last year [facility] Work Phone: Tobacco use status CPHS b) No [facility] Work Phone: Office Visit (Cardiology)on 01-25-2023 Follow-up [...] Weight Tips; Status:Complete - Retrospective Authorization; Done: [id number] Some eating tips that can help you lose weight.; Status:Complete - Retrospective Authorization; Done: [id number] Gallstones, Hiatal hernia General Surgery Referral Evaluation and Treatment Evaluate AND Treat Status: Hold For - Scheduling,Retrospective Authorization Requested for: [id number] Hyperlipemia Renew: Atorvastatin Calcium 40 MG Oral Tablet; TAKE 1 TABLET DAILY Persistent atrial fibrillation IO EKG Electrocardiogram- 12 Lead; Status:Complete; Done: [id number] SocHx: Never a smoker Tobacco Use Screening; Status:Complete; Done: [id number] Patient Instructions Please bring all medicines, vitamins, [...] TABLET B (more content not included)... Normal [facility] Activated partial thrombopla stin time (aPTT) in platelet poor plasma by coagulation aOrdered By: Debbie Mac on 01-09-2023 aPTT Coag (PPP) [Time] 19.5 s 25.1-36.5 [facility] Basophils Auto (Bld) [#/Vol] Ordered By: Debbie Mac on 01-09-2023 Basophils (Bld) [#/Vol] 0.0 10*3/uL 0.0-0.2 [facility] Basophils/100 WBC Auto (Bld) Ordered By: Debbie Mac on 01-09-2023 Basophils/100 WBC (Bld) 0.6 % . [facility] Carbon dioxide, total [Moles /volume] in Serum or PlasmaOrdered By: Debbie Mac on 01-09-2023 CO2 [Moles/Vol] 25.6 mmol/L 21.0-31.0 [facility] Chloride [Moles/volume] in S vaughn or PlasmaOrdered By: Debbie Mac on 01-09-2023 Chloride [Moles/Vol] 106 mmol/L 98-107 [facility] Cholesterol [Mass/volume] in Serum or PlasmaOrdered By: Debbie Mac on 01-09-2023 Cholesterol [Mass/Vol] 135 mg/dL 140-200 [facility] Comment on above: Chol less than 200 m g/dl low riskChol 201-239 mg/dl borderline riskChol 240 mg/dl and greater high risk Cholesterol in LDL Calc [Mas s/Vol]Ordered By: Debbie Mac on 01-09-2023 Cholesterol in LDL [Mass/Vol] 45 mg/dL 0-100 [facility] Comment on above: LDL ATP III CLASSIFI CATIONLDL less than 100 mg/dL OptimalLDL 100-129 mg/dL Near or above optimalLDL 130-159 mg/dL Borderline highLDL 160-189 mg/dL HighLDL greater than 189 mg/dL Very high Cholesterol in VLDL Calc [Ma ss/Vol]Ordered By: Debbie Mac on 01-09-2023 Cholesterol in VLDL [Mass/Vol] 13 mg/dL [facility] Creatinine [Mass/volume] in Serum or PlasmaOrdered By: Debbie Mac on 01-09-2023 Creatinine [Mass/Vol] 0.98 mg/dL 0.60-1.20 [facility] Eosinophils Auto (Bld) [#/Vo l]Ordered By: Debbie Mac on 01-09-2023 Eosinophils (Bld) [#/Vol] 0.2 10*3/uL 0.0-0.45 [facility] Eosinophils/100 WBC Auto (Bl d)Ordered By: Debbie Mac on 01-09-2023 Eosinophils/100 WBC (Bld) 2.9 % . [facility] Erythrocyte distribution wid th Auto (RBC) [Ratio]Ordered By: Debbie Mac on 01-09-2023 Erythrocyte distribution width (RBC) [Ratio] 14.5 % 11.9-15.3 [facility] Hematocrit Auto (Bld) [Volum e fraction]Ordered By: Debbie Mac on 01-09-2023 Hematocrit (Bld) [Volume fraction] 43.9 % 34.0-46.4 [facility] Hemoglobin [Mass/volume] in BloodOrdered By: Debbie Mac on 01-09-2023 Hemoglobin (Bld) [Mass/Vol] 14.7 g/dL 11.8-15.4 [facility] Laboratory - Chemistry and C hemistry - challengeon 01-09-2023 Cholesterol [Mass/Vol] 135\S\135 below low threshold 140-200 [facility] Work Phone: Comment on above: Chol less than 200 m g/dl low risk Chol 201-239 mg/dl borderline risk Chol 240 mg/dl and greater high risk Cholesterol in LDL [Mass/Vol] 45\S\45 Normal 0-100 [facility] Work Phone: Comment on above: LDL ATP III CLASSIFI CATION LDL less than 100 mg/dL Optimal LDL 100-129 mg/dL Near or above optimal LDL 130-159 mg/dL Borderline high LDL 160-189 mg/dL High LDL greater than 189 mg/dL Very high Laboratory - CoagulationOrde red By: Debbie Mac on 01-09-2023 PT Coag (PPP) [Time] 11.5 s 9.0-12.9 [facility] Leukocytes [#/volume] correc anne marie for nucleated erythrocytes in Blood by Automated counOrdered By: Debbie Mac on 01-09-2023 WBC corrected for nucl RBC Auto (Bld) [#/Vol] 7.1 10*3/uL 3.8-11.6 [facility] Lymphocytes Auto (Bld) [#/Vo l]Ordered By: Debbei Mac on 01-09-2023 Lymphocytes (Bld) [#/Vol] 1.0 10*3/uL 1.00-4.8 [facility] Lymphocytes/100 WBC Auto (Bl d)Ordered By: Debbie Mac on 01-09-2023 Lymphocytes/100 WBC (Bld) 14.7 % . [facility] MCH Auto (RBC) [Entitic mass ]Ordered By: Debbie Mac on 01-09-2023 MCH (RBC) [Entitic mass] 29.8 pg 24.7-34.3 [facility] MCHC Auto (RBC) [Mass/Vol]Or dered By: Debbie Mac on 01-09-2023 MCHC (RBC) [Mass/Vol] 33.5 g/dL 32.0-35.0 [facility] MCV Auto (RBC) [Entitic vol] Ordered By: Debbie Mac on 01-09-2023 MCV (RBC) [Entitic vol] 89.1 fL 80-100 [facility] Monocytes Auto (Bld) [#/Vol] Ordered By: Debbie Mac on 01-09-2023 Monocytes (Bld) [#/Vol] 0.5 10*3/uL 0.0-0.8 [facility] Monocytes/100 WBC Auto (Bld) Ordered By: Debbie Mac on 01-09-2023 Monocytes/100 WBC (Bld) 7.0 % . [facility] Neutrophils Auto (Bld) [#/Vo l]Ordered By: Debbie Mac on 01-09-2023 Neutrophils (Bld) [#/Vol] 5.3 10*3/uL 1.8-7.7 [facility] Neutrophils/100 WBC Auto (Bl d)Ordered By: Debbie Mac on 01-09-2023 Neutrophils/100 WBC (Bld) 74.8 % . [facility] No Panel InformationOrdered By: Debbie Mac on 01-09-2023 Estimated GFR (CKD-EPI) 58.349 mL/Min [facility] Creatinine Clearance (Chem 40.90 [facility] No Panel Informationon 01-09 19.5\S\19.5 below low threshold 25.1-36.5 [facility] Work Phone: Comment on above: PERFORMED BY:[facility] [place], [place] [phone] MEDICAL DIRECTORVITOR ZARATE M.D. 1.0\S\1.0 Normal [facility] Work Phone: Comment on above: INR Therapeutic [...] valves: 3 - 4.5 11.5\S\11.5 Normal 9.0-12.9 [facility] Work Phone: Test not performed\S \Test not performed Normal 6.0-15.0 [facility] Work Phone: 25.6\S\25.6 Normal 21.0-31.0 [facility] Work Phone: 106\S\106 Normal 98-107 [facility] Work Phone: [phone] Normal 3.5-5.1 [facility] Work Phone: [phone] Comment on above: Specimen hemolyzed, redraw requested 138\S\138 Normal 136-145 [facility] Work Phone: [phone] 22\S\22 Normal 7-25 [facility] Work Phone: [phone] 40.90\S\40.90 Normal [facility] Work Phone: [phone] Comment on above: PERFORMED BY:[facility] [place], [place] [phone] MEDICAL DIRECTORVITOR ZARATE M.D. 58.349\S\58.349 Normal [facility] Work Phone: [phone] 0.98\S\0.98 Normal 0.60-1.20 [facility] Work Phone: [phone] 74.8\S\74.8 Normal . [facility] Work Phone: [phone] 8.8\S\8.8 Normal 6.3-10.7 [facility] Work Phone: [phone] 167\S\167 Normal 150-450 [facility] Work Phone: [phone] 14.5\S\14.5 Normal 11.9-15.3 [facility] Work Phone: [phone] 33.5\S\33.5 Normal 32.0-35.0 [facility] Work Phone: [phone] 29.8\S\29.8 Normal 24.7-34.3 [facility] Work Phone: [phone] 5.3\S\5.3 Normal 1.8-7.7 [facility] Work Phone: [phone] 0.1\S\0.1 Normal 0-0.5 [facility] Work Phone: [phone] 0.6\S\0.6 Normal . [facility] Work Phone: [phone] 2.9\S\2.9 Normal . [facility] Work Phone: [phone] 7.0\S\7.0 Normal . [facility] Work Phone: [phone] 14.7\S\14.7 Normal 11.8-15.4 [facility] Work Phone: [phone] 0.0\S\0.0 Normal 0.0-0.2 [facility] Work Phone: [phone] Comment on above: PERFORMED BY:[place] [address] [place], [place] [phone] MEDICAL DIRECTORCON[facility] Trang 0.2\S\0.2 Normal 0.0-0.45 [facility] Work Phone: [phone] 0.5\S\0.5 Normal 0.0-0.8 [facility] Work Phone: [phone] 1.0\S\1.0 Normal 1.00-4.8 [facility] Work Phone: [phone] 89.1\S\89.1 Normal 80-100 [facility] Work Phone: [phone] 43.9\S\43.9 Normal 34.0-46.4 [facility] Work Phone: [phone] 4.92\S\4.92 Normal 3.60-5.00 [facility] Work Phone: [phone] 7.1\S\7.1 Normal 3.8-11.6 [facility] Work Phone: [phone] 4.5\S\4.5 Normal 3.5-5.1 [facility] Work Phone: [phone] Comment on above: PERFORMED BY:[place] [address] [place], [place] [phone] [facility] ELLIOT Costello 1.8\S\1.8 Normal <5.0 [facility] Work Phone: [phone] Comment on above: PERFORMED BY:[place] [address] [place] [place], [place] [phone] MEDICAL DIRECTORVITOR ZARATE M.D. 13\S\13 Normal [facility] Work Phone: 69\S\69 Normal 0-149 [facility] Work Phone: Comment on above: TRIG ATP III CLASSIF ICATION TRIG less than 150 mg/dL Normal TRIG 150-199 mg/dL Borderline high TRIG 200-500 mg/dL High TRIG greater than 500 mg/dL Very high Standard traceable to the Center for Disease Conrtrol and Prevention (CDC) test method. 76\S\76 Normal 35-85 [facility] Work Phone: Comment on above: HDL CHOL ATP-III CLA SSIFICATION Cardiovascular Risk HDL > or equal to 60 mg/dL LOW HDL < 40 mg/dL HIGH Nucleated erythrocytes [Pres ence] in Blood by Automated countOrdered By: Debbie Mac on 01-09-2023 Nucleated RBC Auto Ql (Bld) 0.1 /100{WBC} 0-0.5 [facility] Platelet mean volume Auto (B ld) [Entitic vol]Ordered By: Debbie Mac on 01-09-2023 Platelet mean volume (Bld) [Entitic vol] 8.8 fL 6.3-10.7 [facility] Platelet poor plasma interna tional normalized ratio (INR) by coagulation assay (relatOrdered By: Debbie Mac on 01-09-2023 INR Coag (PPP) [Relative time] 1.0 {INR} [facility] Comment on above: INR Therapeutic Rang [...] 01-09-2023 Platelets (Bld) [#/Vol] 167 10*3/uL 150-450 [facility] Potassium [Moles/volume] in Serum or PlasmaOrdered By: Debbie Mac on 01-09-2023 Potassium [Moles/Vol] 4.5 mmol/L 3.5-5.1 [facility] RBC Auto (Bld) [#/Vol]Ordere d By: Debbie Mac on 01-09-2023 RBC (Bld) [#/Vol] 4.92 10*6/uL 3.60-5.00 [facility] Serum or plasma anion gap de terminationOrdered By: Debbie Mac on 01-09-2023 Anion gap [Moles/Vol] TNP [facility] Comment on above: Test not performed Serum or plasma high density lipoprotein (HDL) cholesterol measurementOrdered By: Debbie Mac on 01-09-2023 Cholesterol in HDL [Mass/Vol] 76 mg/dL 35-85 [facility] Comment on above: HDL CHOL ATP-III CLA SSIFICATION Cardiovascular RiskHDL > or equal to 60 mg/dL LOWHDL < 40 mg/dL HIGH Serum or plasma total choles terol/high density lipoprotein (HDL) cholesterol mass ratOrdered By: Debbie Mac on 01-09-2023 Cholesterol.total/Chol esterol in HDL [Mass ratio] 1.8 {ratio} <5.0 [facility] Sodium [Moles/volume] in Ser um or PlasmaOrdered By: Debbie Mac on 01-09-2023 Sodium [Moles/Vol] 138 mmol/L 136-145 [facility] Triglyceride [Mass/volume] i n Serum or PlasmaOrdered By: Debbie Mac on 01-09-2023 Triglyceride [Mass/Vol] 69 mg/dL 0-149 [facility] Comment on above: TRIG ATP III CLASSIF ICATIONTRIG less than 150 mg/dL NormalTRIG 150-199 mg/dL Borderline highTRIG 200-500 mg/dL High TRIG greater than 500 mg/dL Very highStandard traceable to the Center for Disease Conrtrol and Prevention (CDC) test method. Urea nitrogen [Mass/volume] in Serum or PlasmaOrdered By: Debbie Mac on 01-09-2023 Urea nitrogen [Mass/Vol] 22 mg/dL 7- [facility] WBC Auto (Bld) [#/Vol]Ordere d By: Debbie Mac on 01-09-2023 WBC (Bld) [#/Vol] 7.1 10*3/uL 3.8-11.6 [facility] Office Visit (Cardiology)on 01-04-2023 Follow-up visit Diagnoses/Problems [...] in adult Healthy Weight Tips; Status:Complete; Done: 04Jan2023 Some eating tips that can help you lose weight.; Status:Complete; Done: 04Jan2023 Diastolic heart failure, Dyspnea, Essential hypertension, benign, Persistent atrial fibrillation, 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 Cardiac Catherization; Status:Active; Requested for:04Jan2023; Persistent atrial fibrillation IO EKG Electrocardiogram- 12 Lead; Status:Complete; Done: 04Jan2023 SocHx: Never a smoker Tobacco Use Screening; Status:Complete; Done: 04Jan2023 Patient Instructions Please bring all medicines, vitamins, [...] and alternat (more content not included)... Normal [facility] TROPONIN, HIGH SENSITIVITYon 01-04-2023 HSTROP 73.1 pg/mL Critically high 4.0-51.3 [facility] Comment on above: Result Comment: CUT- OFF POINTS HAVE BEEN ESTABLISHED BASED ON THE FOURTH UNIVERSAL DEFINITIONS OF MYOCARDIAL INFARCTION. THE UPPER REFERENCE LIMIT (URL) OF TROPONIN, DEFINED THE 99TH PERCENTILE OF cTnI DISTRIBUTION IN A REFERENCE POPULATION, HAS BEEN CONFIRMED THE DECISION THRESHOLD FOR [place] DIAGNOSIS. Performed By: #### H STROPN #### [facility] [address] [place] [address] Dr. Lori Sutton Tobacco Screening.on 023 Tobacco use status CPHS b) No [facility] [facility] Work Phone: XR CHEST 1 Von 01-04-2023 [...] Large hiatal hernia. Electronically authenticated by: LUCIEN GRACIAU Date: 2023-01-03 22:39 Normal [facility] BNPon 01-03-2023 Natriuretic peptide B (Bld) [Mass/Vol] 438.0 pg/mL Normal <=1,800.0 [facility] Comment on above: Performed By: #### B PUBLIC IMPROVEMENT INSPECTOR ####[facility] [address] [place] [address]Dr. Lori Herman CBC AUTO DIFFon 01-03-2023 BASO # 0.0 103/ul Normal 0.0-0.1 [facility] Comment on above: Performed By: #### C BC ####[facility] Muybiv[address] [place], [place] [address]Dr. Lori Sutton Basophils/100 WBC (Bld) 0.7 % Normal 0.2-2.0 [facility] Comment on above: Performed By: #### C BC ####[facility] Drrypuamsl[address] [place], [place] [address]Dr. Lori Sutton EO # 0.2 103/ul Normal 0.0-0.7 [facility] Comment on above: Performed By: #### C BC ####[facility] [address] [place], [place] [address]Dr. Lori Sutton Eosinophils/100 WBC (Bld) 4.2 % Normal 0.9-7.0 [facility] Comment on above: Performed By: #### C BC ####[facility] [address]brpvp[address] [place], [place] [address]Dr. Lori Herman Erythrocyte distribution width (RBC) [Ratio] 13.7 % Normal 11.0-15.0 [facility] Comment on above: Performed By: #### C BC ####[facility] [address] [place], [place] [address]Dr. Lori Sutton Hematocrit (Bld) [Volume fraction] 46.1 % Normal 36.0-48.0 [facility] Comment on above: Performed By: #### C BC ####[facility] Adrieaffgm[address] [place], [place] [address]Dr. Lori Herman Hemoglobin (Bld) [Mass/Vol] 14.7 g/dL Normal 12.0-16.0 [facility] Comment on above: Performed By: #### C BC ####[facility] [address] [place] [address]Dr. Lori Sutton IG # 0.01 10e3/ul Normal 0.00-0.03 [facility] Comment on above: Performed By: #### C BC ####[facility] Ey[address] [place] [address]Dr. Lori Sutton IG % 0.2 % Normal 0.0-0.5 [facility] Comment on above: Performed By: #### C BC ####[facility] Rxjibvdbig[address] [place], [place] [address]DrMelita Sutton LYMPH # 1.3 103/ul Normal 1.2-3.8 [facility] Comment on above: Performed By: #### C BC ####[facility] Glzxcavpax[address] [place], [place] [address]DrMelita Sutton Lymphocytes/100 WBC (Bld) 22.9 % Normal 20.5-60.0 [facility] Comment on above: Performed By: #### C BC ####[facility] Q[address]nbqmjcq[address] [place], [place] [address]DrMelita Sutton MANUAL DIFF REQ NO Normal [facility] Comment on above: Performed By: #### C BC ####[facility] V[address]ztjpcd[address] [place], [place] [address]DrMelita Sutton MCH (RBC) [Entitic mass] 29.7 pg Normal 26.7-34.0 [facility] Comment on above: Performed By: #### C BC ####[facility] O[address] [place], [place] [address]DrMelita Sutton MCHC (RBC) [Mass/Vol] 31.9 g/dL Normal 29.9-35.2 [facility] Comment on above: Performed By: #### C BC ####[facility] Buzqvjcyxs[address] [place], [place] [address]DrMelita Sutton MCV (RBC) [Entitic vol] 93.1 fL Normal 81.0-99.0 [facility] Comment on above: Performed By: #### C BC ####[facility] N[address]uyuridyk[address] [place], [place] [address]DrMelita uStton MONO # 0.3 103/ul Normal 0.3-0.8 [facility] Comment on above: Performed By: #### C BC ####[facility] [address] [place] [address]Dr. Lori Sutton Monocytes/100 WBC (Bld) 4.7 % Normal 1.7-12.0 [facility] Comment on above: Performed By: #### C BC ####[facility] Tghboxfjkg[address] [place], [place] [address]Dr. Lori Sutton NEUT # 3.9 103/ul Normal 1.4-6.5 [facility] Comment on above: Performed By: #### C BC ####[facility] T[address]wokj[address] [place], [place] [address]Dr. Lori Sutton Neutrophils/100 WBC (Bld) 67.3 % Normal 43.0-75.0 [facility] Comment on above: Performed By: #### C BC ####[facility] Dofyhamxrp[address] [place], [place] [address]Dr. Lori Sutton Platelet mean volume (Bld) [Entitic vol] 10.5 fL Normal 9.5-13.5 [facility] Comment on above: Performed By: #### C BC ####[facility] B[address]uhzlwkq[address] [place], [place] [address]Dr. Lori Sutton PLT 211 103/ul Normal 150-450 [facility] Comment on above: Performed By: #### C BC ####[facility] [address]xm[address] [place], [place] [address]Dr. Lori Sutton RBC 4.95 106/ul Normal 4.20-5.40 [facility] Comment on above: Performed By: #### C BC ####[facility] Hehyinhiru[address] [place], [place] [address]Dr. Lori Sutton WBC 5.7 103/ul Normal 4.0-11.0 [facility] Comment on above: Performed By: #### C BC ####[facility] Kabpezgfok[address] [place], [place] [address]DrMelita Lori Sutton D-DIMERon 01-03-2023 D-DIMER 0.26 mg/L FEU Normal <=0.59 [facility] Comment on above: Performed By: #### D DIM ####[facility] [address] [place], [place] [address]Jk. Lori Sutton D-DIMER COMMENTS SEE BELOW Normal [facility] Comment on above: Result Comment: Incr eases [...] and generalized hospitalization. Performed By: #### D DIM ####[facility] [address] [place], [place] [address]Xq. Lori Sutton Office Visit (Cardiology)on 01-03-2023 Follow-up [...] Lead; Status:Active - Perform Order,Retrospective Authorization; Requested for:[id number]; SocHx: Never a smoker Tobacco Use Screening; Status:Complete; Done: 03Jan2023 Patient Instructions Continue same medications/treatment. Patient educated [...] atrial fibrillation for which she started seeing [facility] since 2020 after she was hospitalized in [facility] for bradycardia. Adjustment of her medical therapy [...] therapy. Patient is being evaluated recently at [facility] for ablation therapy for atrial fibrillation. She [...] had a dual-chamber pacemaker [employer] MRI implanted in June 29, 2021. Clinical [...] possible applicat (more content not included)... Normal [facility] PROF 14(COMP METB)on 023 Albumin [Mass/Vol] 3.8 g/dL Normal 3.4-5.0 [facility] Comment on above: Performed By: #### C CHELSEA BATISTA ####[facility] [address] [place] [id number] Sutton Albumin/Globulin [Mass ratio] 1.2 {ratio} Normal [facility] Comment on above: Performed By: #### C CHELSEA BATISTA ####[facility] [address] [place] [address]DrMelita Sutton ALP [Catalytic activity/Vol] 101 U/L Normal 46-116 [facility] Comment on above: Performed By: #### C CHELSEA BATISTA ####[facility] [address] [place] [address]Dr. Lori Sutton ALT [Catalytic activity/Vol] 25 U/L Normal 14-59 [facility] Comment on above: Performed By: #### C LESTER, HSTROPN ####[facility] [address] [place] [address]Dr. Lori Sutton Anion gap [Moles/Vol] 15.5 mmol/L Normal Th [facility] Comment on above: Performed By: #### C LESTER, HSTROPN ####[facility] Ozowpwhkzj[address] [place], [place] [address]Dr. Lori Sutton AST [Catalytic activity/Vol] 24 U/L Normal 15-37 [facility] Comment on above: Performed By: #### C LESTER, HSTROPN ####[facility] [address] [place], [place] [address]Dr. Lori Sutton Bilirubin [Mass/Vol] 0.8 mg/dL Normal 0.2-1.0 [facility] Comment on above: Performed By: #### C ELSTER, HSTROPN ####[facility] Jwfmsirirn[address] [place], [place] [address]Dr. Lori Sutton Calcium [Mass/Vol] 8.8 mg/dL Normal 8.5-10.1 [facility] Comment on above: Performed By: #### C LESTER, HSTROPN ####[facility] Im[address] [place], [place] [address]Dr. Lori Sutton Chloride [Moles/Vol] 105 mmol/L Normal 98-107 [facility] Comment on above: Performed By: #### C LESTER, HSTROPN ####[facility] [address] [place], [place] [address]Dr. Lori Sutton CO2 [Moles/Vol] 24.5 mmol/L Normal 21.0-32.0 [facility] Comment on above: Performed By: #### C LESTER, HSTROPN ####[facility] [address]wtex[address] [place], [place] [address]Dr. Lori Sutton Creatinine [Mass/Vol] 1.28 mg/dL Critically high 0.55-1.02 [facility] Comment on above: Performed By: #### C MP, HSTROPN ####[facility] [address] [place] [address]Dr. Estephanialan Sutton EGFR-AF MONEGASQUE 49 mL/min/1.73m2 Critically low >=60 [facility] Comment on above: Performed By: #### C MP, HSTROPN ####[facility] [address] [place] [address]Dr. Yilan Sutton EGFR-NON AF MONEGASQUE 40 mL/min/1.73m2 Critically low >=60 [facility] Comment on above: Performed By: #### C LESTER, HSTROPN ####[facility] P[address]ygct[address] [place], [place] [address]Dr. Lori Sutton Globulin (S) [Mass/Vol] 3.2 g/dL Normal [facility] Comment on above: Performed By: #### C LESTER, HSTROPN ####[facility] [address] [place], [place] [address]Dr. Estephanialan Sutton Glucose [Mass/Vol] 230 mg/dL Critically high 74-106 [facility] Comment on above: Performed By: #### C LESTER, HSTROPN ####[facility] [address] [place], [place] [address]Dr. Lori Sutton Potassium [Moles/Vol] 4.0 mmol/L Normal 3.5-5.1 [facility] Comment on above: Performed By: #### C LESTER, HSTROPN ####[facility] [address] [place], [place] [address]Dr. Estephanialan Sutton Protein [Mass/Vol] 7.0 g/dL Normal 6.4-8.2 [facility] Comment on above: Performed By: #### C MP, HSTROPN ####[facility] [address] [place], [place] [address]Dr. Lori Sutton Sodium [Moles/Vol] 141 mmol/L Normal 136-145 [facility] Comment on above: Performed By: #### C MP, HSTROPN ####[facility] [address] [place], [place] [address]PgDr. Lori Sutton Urea nitrogen [Mass/Vol] 28.0 mg/dL Critically high 7.0-18.0 [facility] Comment on above: Performed By: #### C LESTER, HSTROPN ####[facility] [address] [place], [place] [address]AcDr. Lori Sutton Urea nitrogen/Creatinine [Mass ratio] 21.9 mg/mg Normal [facility] Comment on above: Performed By: #### C LESTER, HSTROPN ####[facility] [address] [place] [address]Dr. Lori Sutton TROPONIN, HIGH SENSITIVITYon 01-03-2023 HSTROP 74.5 pg/mL Critically high 4.0-51.3 [facility] Comment on above: Result Comment: CUT- OFF POINTS HAVE BEEN ESTABLISHED BASED ON THE FOURTH UNIVERSAL DEFINITIONS OF MYOCARDIAL INFARCTION. THE UPPER REFERENCE LIMIT (URL) OF TROPONIN, DEFINED THE 99TH PERCENTILE OF cTnI DISTRIBUTION IN A REFERENCE POPULATION, HAS BEEN CONFIRMED THE DECISION THRESHOLD FOR [place] DIAGNOSIS. Performed By: #### C LESTER, HSTROPN ####[facility] [address] [place] [id number]. Lori Sutton Tobacco Screening.on 023 Fall risk assessment a) No falls within the last year [facility] Work Phone: Tobacco use status [facility] b) No [facility] Work Phone: Tobacco Screening. Yes [facility] Work Phone: AMYLASEon 01-02-2023 Amylase [Catalytic activity/Vol] 37 U/L Normal 25-115 [facility] Comment on above: Performed By: #### B PUBLIC IMPROVEMENT INSPECTOR, GERRY, CMP #### [facility] [address] [address] [address] Lori Sutton BNPon 01-02-2023 Natriuretic peptide B (Bld) [Mass/Vol] 690.0 pg/mL Normal <=1,800.0 [facility] Comment on above: Performed By: #### B PUBLIC IMPROVEMENT INSPECTOR, GERRY, CMP ####[facility] [address] [place], [place] [address]JiDr. Lori Sutton CBC AUTO DIFFon 01-02-2023 BASO # 0.0 103/ul Normal 0.0-0.1 [facility] Comment on above: Performed By: #### C BC #### [facility] [address] [address] [address] Lori Sutton Basophils/100 WBC (Bld) 0.6 % Normal 0.2-2.0 [facility] Comment on above: Performed By: #### C BC #### [facility] [address] [address] [address] Lori Sutton EO # 0.2 103/ul Normal 0.0-0.7 [facility] Comment on above: Performed By: #### C BC #### [facility] [address] [address] [address] Lori Sutton Eosinophils/100 WBC (Bld) 2.8 % Normal 0.9-7.0 [facility] Comment on above: Performed By: #### C BC #### [facility] [address] [address] [address] Lori Sutton Erythrocyte distribution width (RBC) [Ratio] 13.8 % Normal 11.0-15.0 [facility] Comment on above: Performed By: #### C BC #### [facility] [address] [place] [address] Dr. Lori Sutton Hematocrit (Bld) [Volume fraction] 46.3 % Normal 36.0-48.0 [facility] Comment on above: Performed By: #### C BC #### [facility] [address] [address] [address] Lori Sutton Hemoglobin (Bld) [Mass/Vol] 15.0 g/dL Normal 12.0-16.0 [facility] Comment on above: Performed By: #### C BC #### [facility] [address] [address] [address] Lori Sutton IG # 0.01 10e3/ul Normal 0.00-0.03 [facility] Comment on above: Performed By: #### C BC #### [facility] [address] [place] [address] Dr. Lori Sutton IG % 0.2 % Normal 0.0-0.5 [facility] Comment on above: Performed By: #### C BC #### [facility] [address] [place] [address] Dr. Lori Sutton LYMPH # 1.1 103/ul Critically low 1.2-3.8 [facility] Comment on above: Performed By: #### C BC #### [facility] [address] [place] [address] Dr. Lori Sutton Lymphocytes/100 WBC (Bld) 17.6 % Critically low 20.5-60.0 [facility] Comment on above: Performed By: #### C BC #### [facility] [address] [place] [address] Dr. Lori Sutton MANUAL DIFF REQ NO Normal [facility] Comment on above: Performed By: #### C BC #### [facility] [address] [place] [address] Dr. Lori Sutton MCH (RBC) [Entitic mass] 29.7 pg Normal 26.7-34.0 [facility] Comment on above: Performed By: #### C BC #### [facility] [address] [place] [address] Dr. Lori Sutton MCHC (RBC) [Mass/Vol] 32.4 g/dL Normal 29.9-35.2 [facility] Comment on above: Performed By: #### C BC #### [facility] [address] [place] [address] Dr. Lori Sutton MCV (RBC) [Entitic vol] 91.7 fL Normal 81.0-99.0 [facility] Comment on above: Performed By: #### C BC #### [facility] [address] [place] [address] Dr. Lori Sutton MONO # 0.4 103/ul Normal 0.3-0.8 [facility] Comment on above: Performed By: #### C BC #### [facility] [address] [place] [address] Dr. Lori Sutton Monocytes/100 WBC (Bld) 6.2 % Normal 1.7-12.0 [facility] Comment on above: Performed By: #### C BC #### [facility] [address] [address] [address] Lori Sutton NEUT # 4.6 103/ul Normal 1.4-6.5 [facility] Comment on above: Performed By: #### C BC #### [facility] [address] [place] [address] Dr. Lori Sutton Neutrophils/100 WBC (Bld) 72.6 % Normal 43.0-75.0 [facility] Comment on above: Performed By: #### C BC #### [facility] [address] [place] [address] Dr. Lori Sutton Platelet mean volume (Bld) [Entitic vol] 10.3 fL Normal 9.5-13.5 [facility] Comment on above: Performed By: #### C BC #### [facility] [address] [place] [address] Dr. Lori Sutton PLT 207 103/ul Normal 150-450 [facility] Comment on above: Performed By: #### C BC #### [facility] [address] [place] [address] Dr. Lori Sutton RBC 5.05 106/ul Normal 4.20-5.40 [facility] Comment on above: Performed By: #### C BC #### [facility] [address] [place] [address] Dr. Lori Sutton WBC 6.3 103/ul Normal 4.0-11.0 [facility] Comment on above: Performed By: #### C BC #### [facility] [address] [place] [address] Dr. Lori Sutton PROF 14(COMP METB)on 023 Albumin [Mass/Vol] 3.9 g/dL Normal 3.4-5.0 [facility] Comment on above: Performed By: #### B PUBLIC IMPROVEMENT INSPECTOR, GERRY, CMP ####[facility] [address] [place] [address]Dr. Lori Sutton Albumin/Globulin [Mass ratio] 1.2 {ratio} Normal [facility] Comment on above: Performed By: #### B PUBLIC IMPROVEMENT INSPECTOR, GERRY, CMP ####[facility] [address] [place] [address]Dr. Loir Sutton ALP [Catalytic activity/Vol] 98 U/L Normal 46-116 [facility] Comment on above: Performed By: #### B PUBLIC IMPROVEMENT INSPECTOR, GERRY, CMP ####[facility] [address] [place] [address]Dr. Lori Sutton ALT [Catalytic activity/Vol] 24 U/L Normal 14-59 [facility] Comment on above: Performed By: #### B PUBLIC IMPROVEMENT INSPECTOR, GERRY, CMP ####[facility] [address] [place] [address]Dr. Lori Sutton Anion gap [Moles/Vol] 12.0 mmol/L Normal [facility] Comment on above: Performed By: #### B PUBLIC IMPROVEMENT INSPECTOR, GERRY, CMP ####[facility] [address] [place] [address]Dr. Lori Sutton AST [Catalytic activity/Vol] 25 U/L Normal 15-37 [facility] Comment on above: Performed By: #### B PUBLIC IMPROVEMENT INSPECTOR, GERRY, CMP ####[facility] [address] [place] [address]Dr. Lori Herman Bilirubin [Mass/Vol] 0.8 mg/dL Normal 0.2-1.0 [facility] Comment on above: Performed By: #### B PUBLIC IMPROVEMENT INSPECTOR, GERRY, CMP ####[facility] [address] [place] [address]Dr. Estephaniaurbano Sutton Calcium [Mass/Vol] 9.2 mg/dL Normal 8.5-10.1 [facility] Comment on above: Performed By: #### B PUBLIC IMPROVEMENT INSPECTOR, GERRY, CMP ####[facility] [address] [place] [address]Dr. Lori Sutton Chloride [Moles/Vol] 107 mmol/L Normal 98-107 [facility] Comment on above: Performed By: #### B PUBLIC IMPROVEMENT INSPECTOR, GERRY, CMP ####[facility] [address] [place] [address]Dr. Lori Sutton CO2 [Moles/Vol] 28.6 mmol/L Normal 21.0-32.0 [facility] Comment on above: Performed By: #### B PUBLIC IMPROVEMENT INSPECTOR, GERRY, CMP ####[facility] [address] [place] [address]Dr. Lori Sutton Creatinine [Mass/Vol] 1.08 mg/dL Critically high 0.55-1.02 [facility] Comment on above: Performed By: #### B PUBLIC IMPROVEMENT INSPECTOR, GERRY, CMP ####[facility] [address] [place] [address]Dr. Lori Sutton EGFR-AF MONEGASQUE 59 mL/min/1.73m2 Critically low >=60 [facility] Comment on above: Performed By: #### B PUBLIC IMPROVEMENT INSPECTOR, GERRY, CMP ####[facility] [address] [place] [address]Dr. Lori Sutton EGFR-NON AF MONEGASQUE 49 mL/min/1.73m2 Critically low >=60 [facility] Comment on above: Performed By: #### B PUBLIC IMPROVEMENT INSPECTOR, GERRY, CMP ####[facility] [address] [place] [address]Dr. Lori Sutton Globulin (S) [Mass/Vol] 3.2 g/dL Normal [facility] Comment on above: Performed By: #### B PUBLIC IMPROVEMENT INSPECTOR, GERRY, CMP ####[facility] [address] [place] [address]Dr. Lori Sutton Glucose [Mass/Vol] 103 mg/dL Normal 74-106 [facility] Comment on above: Performed By: #### B PUBLIC IMPROVEMENT INSPECTOR, GERRY, CMP ####[facility] [address] [place] [address]Dr. Lori Sutton Potassium [Moles/Vol] 4.6 mmol/L Normal 3.5-5.1 [facility] Comment on above: Performed By: #### B PUBLIC IMPROVEMENT INSPECTOR, GERRY, CMP ####[facility] [address] [place] [address]Dr. Lori Sutton Protein [Mass/Vol] 7.1 g/dL Normal 6.4-8.2 [facility] Comment on above: Performed By: #### B PUBLIC IMPROVEMENT INSPECTOR, GERRY, CMP ####[facility] [address] [place] [address]Dr. Lori Sutton Sodium [Moles/Vol] 143 mmol/L Normal 136-145 [facility] Comment on above: Performed By: #### B PUBLIC IMPROVEMENT INSPECTOR, GERRY, CMP ####[facility] [address] [place] [address]Dr. Lori Sutton Urea nitrogen [Mass/Vol] 29.0 mg/dL Critically high 7.0-18.0 [facility] Comment on above: Performed By: #### B PUBLIC IMPROVEMENT INSPECTOR, GERRY, CMP ####[facility] [address] [place] [address]Dr. Lori Sutton Urea nitrogen/Creatinine [Mass ratio] 26.9 mg/mg Normal [facility] Comment on above: Performed By: #### B GERRY GODOY, CMP ####[facility] [address] [place] [address]Dr. Lori Sutton XR CHEST 2 Von 01-02-2023 [...] ARI LEVY Date: 2023-01-02 12:33 Normal [facility] Office Visit (Cardiology)on 12-25-2022 Follow-up visit Diagnoses/Problems [...] AF includes Amiodarone (d/c?d for concerns of mcfp side effects), tikosyn (prolonged OTc), sotalol and DCCV (09/2022). Symptoms of her AF include fatigue and BRAY. Pt follows with Dr Stover for management of her AF. Pt has previously been on Amio but was concerned about intermodal customer service side effects. She was then put on [...] AV CONDUCTION @ 109 bpm Echo 08/2022 ([facility] ? [facility] LVEF 40%, moderate anteroseptal hypokinesis with wall [...] PM S (more content not included)... [facility] Alkaline phosphatase [Enzyma tic activity/volume] in Serum or PlasmaOrdered By: Wilbur Watson on 11-27-2022 ALP [Catalytic activity/Vol] 67 U/L 34-104 [facility] Amylase [Enzymatic activity/ volume] in Serum or PlasmaOrdered By: Wilbur Watson on 11-27-2022 Amylase [Catalytic activity/Vol] 24 U/L 29-103 [facility] Bilirubin.direct [Mass/volum e] in Serum or PlasmaOrdered By: Wilbur Watson on 11-27-2022 Bilirubin.direct [Mass/Vol] 0.20 mg/dL 0.03-0.18 [facility] Bilirubin.total [Mass/volume ] in Serum or PlasmaOrdered By: Wilbur Watson on 11-27-2022 Bilirubin [Mass/Vol] 0.8 mg/dL 0.3-1.0 [facility] Lipase [Enzymatic activity/v olume] in Serum or PlasmaOrdered By: Wilbur Watson on 11-27-2022 Lipase [Catalytic activity/Vol] 31.0 U/L 11.0-82.0 [facility] Serum or plasma non-glucuron idated bilirubin measurement (mass/volume)Ordered By: Wilbur Watson on 11-27-2022 Bilirubin.indirect [Mass/Vol] 0.6 mg/dL [facility] Basophils Auto (Bld) [#/Vol] Ordered By: Wilbur Watson on 11-20-2022 Basophils (Bld) [#/Vol] 0.1 10*3/uL 0.0-0.2 [facility] Basophils/100 WBC Auto (Bld) Ordered By: Wilbur Watson on 11-20-2022 Basophils/100 WBC (Bld) 0.9 % . [facility] Calcium [Mass/volume] in Ser um or PlasmaOrdered By: Wilbur Watson on 11-20-2022 Calcium [Mass/Vol] 9.5 mg/dL 8.6-10.3 [facility] Carbon dioxide, total [Moles /volume] in Serum or PlasmaOrdered By: Wilbur Watson on 11-20-2022 CO2 [Moles/Vol] 25.5 mmol/L 21.0-31.0 [facility] Chloride [Moles/volume] in S vaughn or PlasmaOrdered By: Wilbur Watson on 11-20-2022 Chloride [Moles/Vol] 107 mmol/L 98-107 [facility] Creatinine [Mass/volume] in Serum or PlasmaOrdered By: Wilbur Watson on 11-20-2022 Creatinine [Mass/Vol] 1.08 mg/dL 0.60-1.20 [facility] Eosinophils Auto (Bld) [#/Vo l]Ordered By: Wilbur Watson on 11-20-2022 Eosinophils (Bld) [#/Vol] 0.3 10*3/uL 0.0-0.45 [facility] Eosinophils/100 WBC Auto (Bl d)Ordered By: Wilbur Watson on 11-20-2022 Eosinophils/100 WBC (Bld) 3.6 % . [facility] Erythrocyte distribution wid th Auto (RBC) [Ratio]Ordered By: Wilbur Watson on 11-20-2022 Erythrocyte distribution width (RBC) [Ratio] 13.9 % 11.9-15.3 [facility] Glucose [Mass/volume] in Ser um or PlasmaOrdered By: Wilbur Watson on 11-20-2022 Glucose [Mass/Vol] 91 mg/dL 70-100 [facility] Comment on above: ADA recommended refe rence rangeRandom Glucose Reference Range is dependent on time and content of last meal. Glucose of more than 200 mg/dL in a nonstressed, ambulatory subject supports the diagnosis of Diabetes Mellitus. Hematocrit Auto (Bld) [Volum e fraction]Ordered By: Wilbur Watson on 11-20-2022 Hematocrit (Bld) [Volume fraction] 46.1 % 34.0-46.4 [facility] Hemoglobin [Mass/volume] in BloodOrdered By: Wilbur Watson on 11-20-2022 Hemoglobin (Bld) [Mass/Vol] 15.2 g/dL 11.8-15.4 [facility] Leukocytes [#/volume] correc anne marie for nucleated erythrocytes in Blood by Automated counOrdered By: Wilbur Watson on 11-20-2022 WBC corrected for nucl RBC Auto (Bld) [#/Vol] 7.0 10*3/uL 3.8-11.6 [facility] Lymphocytes Auto (Bld) [#/Vo l]Ordered By: Wilbur Watson on 11-20-2022 Lymphocytes (Bld) [#/Vol] 1.6 10*3/uL 1.00-4.8 [facility] Lymphocytes/100 WBC Auto (Bl d)Ordered By: Wilbur Watson on 11-20-2022 Lymphocytes/100 WBC (Bld) 23.1 % . [facility] MCH Auto (RBC) [Entitic mass ]Ordered By: Wilbur Watson on 11-20-2022 MCH (RBC) [Entitic mass] 29.4 pg 24.7-34.3 [facility] MCHC Auto (RBC) [Mass/Vol]Or dered By: Wilbur Watson on 11-20-2022 MCHC (RBC) [Mass/Vol] 33.0 g/dL 32.0-35.0 [facility] MCV Auto (RBC) [Entitic vol] Ordered By: Wilbur Watson on 11-20-2022 MCV (RBC) [Entitic vol] 88.9 fL 80-100 [facility] Monocytes Auto (Bld) [#/Vol] Ordered By: Wilbur Watson on 11-20-2022 Monocytes (Bld) [#/Vol] 0.5 10*3/uL 0.0-0.8 [facility] Monocytes/100 WBC Auto (Bld) Ordered By: Wilbur Watson on 11-20-2022 Monocytes/100 WBC (Bld) 7.4 % . [facility] Neutrophils Auto (Bld) [#/Vo l]Ordered By: Wilbur Watson on 11-20-2022 Neutrophils (Bld) [#/Vol] 4.6 10*3/uL 1.8-7.7 [facility] Neutrophils/100 WBC Auto (Bl d)Ordered By: Wilbur Watson on 11-20-2022 Neutrophils/100 WBC (Bld) 65.0 % . [facility] No Panel InformationOrdered By: Wilbur Watson on 11-20-2022 Estimated GFR (CKD-EPI) 51.927 mL/Min [facility] Creatinine Clearance (Chem N/A [facility] Nucleated erythrocytes [Pres ence] in Blood by Automated countOrdered By: Wilbur Watson on 11-20-2022 Nucleated RBC Auto Ql (Bld) 0.1 /100{WBC} 0-0.5 [facility] Platelet mean volume Auto (B ld) [Entitic vol]Ordered By: Wilbur Watson on 11-20-2022 Platelet mean volume (Bld) [Entitic vol] 9.1 fL 6.3-10.7 [facility] Platelets Auto (Bld) [#/Vol] Ordered By: Wilbur Watson on 11-20-2022 Platelets (Bld) [#/Vol] 220 10*3/uL 150-450 [facility] Potassium [Moles/volume] in Serum or PlasmaOrdered By: Wilbur Watson on 11-20-2022 Potassium [Moles/Vol] 4.5 mmol/L 3.5-5.1 [facility] RBC Auto (Bld) [#/Vol]Ordere d By: Wilbur Watson on 11-20-2022 RBC (Bld) [#/Vol] 5.18 10*6/uL 3.60-5.00 [facility] Serum or plasma anion gap de terminationOrdered By: Wilbur Watson on 11-20-2022 Anion gap [Moles/Vol] 12.0 mmol/L 6.0-15.0 [facility] Sodium [Moles/volume] in Ser um or PlasmaOrdered By: Wilbur Watson on 04-03-2023 Sodium [Moles/Vol] 140 mmol/L 136-145 [facility] Urea nitrogen [Mass/volume] in Serum or PlasmaOrdered By: Wilbur Watson on 11-20-2022 Urea nitrogen [Mass/Vol] 31 mg/dL 7 [facility] WBC Auto (Bld) [#/Vol]Ordere d By: Wilbur Watson on 11-20-2022 WBC (Bld) [#/Vol] 7.0 10*3/uL 3.8-11.6 [facility] MG MAMM SCREEN 3D MARYBETH CADon 10-16-2022 MG MAMM SCREEN 3D MARYBETH CAD Patient: LESA GOLDEN Exam Date: 10/16/2022 : 1940 Gender:F Ordering : DR CHESTER العلي D.O. Admission #: [id number] Family : Order #: [id number] CLICK HERE TO VIEW EXAM RADIOLOGY REPORT [...] sarcoma cancer at age 45. LOCATION: [facility] BREAST COMPOSITION: Extremely dense, which lowers the [...] MD on 10/16/2022 at 14:09 Normal [facility] Office Visit (Cardiology)on 10-13-2022 Follow-up visit Diagnoses/Problems [...] Weight Tips; Status:Complete - Retrospective Authorization; Done: [id number] Some eating tips that can help you lose weight.; Status:Complete - Retrospective Authorization; Done: [id number] Gallstones General Surgery Referral Evaluation and Treatment Evaluate AND Treat Status: Hold For - Scheduling,Retrospective Authorization Requested for: [id number] Persistent atrial fibrillation Renew: Sotalol HCl - 80 MG Oral Tablet (Betapace); TAKE 1 TABLET BY MOUTH TWICE DAILY IO EKG Electrocardiogram- 12 Lead; Status:Complete; Done: [id number] SocHx: Never a smoker Tobacco Use Screening; Status:Complete; Done: [id number] Patient Instructions Please bring all medicines, vitamins, [...] Complaint LESA GOLD[place] [facility] [place]. History of Present Illness Patient [...] not tolerate dofetilide due to prolonged QTc Edelmiraabell. I initially I recommended heart rate control [...] Medication fentany (more content not included)... Normal [facility] Tobacco Screening.on Fall risk assessment a) No falls within the last year [facility] Heart-im3Du evelin 250 DO Work Phone: Tobacco use status [facility] b) No [facility] Heart-im3Du evelin 250 DO Work Phone: Tobacco Screening. Yes [facility] Heart-Sandu evelin 250 DO Work Phone: Tobacco Screening.on Fall risk assessment a) No falls within the last year [facility] Heart-im3Du evelin 250 DO Work Phone: Tobacco use status [facility] b) No [facility] Heart-im3Du evelin 250 DO Work Phone: Basophils Auto (Bld) [#/Vol] Ordered By: Sam Dkues on 09-21-2022 Basophils (Bld) [#/Vol] 0.0 10*3/uL 0.0-0.2 [facility] Basophils/100 WBC Auto (Bld) Ordered By: Sam Dukes on 09-21-2022 Basophils/100 WBC (Bld) 0.7 % . [facility] Creatine kinase [Enzymatic a ctivity/volume] in Serum or PlasmaOrdered By: Debbie Mac on 09-21-2022 CK [Catalytic activity/Vol] 76 U/L 22-269 [facility] Creatinine and Glomerular fi ltration rate.predicted panel (S/P/Bld)Ordered By: Sam Dukes on 09-21-2022 Creatinine [Mass/Vol] 1.08 mg/dL 0.44-1.03 [facility] Eosinophils Auto (Bld) [#/Vo l]Ordered By: Sam Dukes on 09-21-2022 Eosinophils (Bld) [#/Vol] 0.3 10*3/uL 0.0-0.45 [facility] Eosinophils/100 WBC Auto (Bl d)Ordered By: Sam Dukes on 09-21-2022 Eosinophils/100 WBC (Bld) 4.6 % . [facility] Erythrocyte distribution wid th Auto (RBC) [Ratio]Ordered By: Sam Dukes on 09-21-2022 Erythrocyte distribution width (RBC) [Ratio] 13.5 % 11.9-15.3 [facility] Estimated glomerular filtrat ion rate (GFR) non- AmericanOrdered By: Sam Dukes on 09-21-2022 GFR/1.73 sq M.predicted among non-blacks MDRD (S/P/Bld) [Vol rate/Area] 49 mL/Min [facility] Hematocrit Auto (Bld) [Volum e fraction]Ordered By: Sam Dukes on 09-21-2022 Hematocrit (Bld) [Volume fraction] 39.6 % 34.0-46.4 [facility] Hemoglobin [Mass/volume] in BloodOrdered By: Sam Dukes on 09-21-2022 Hemoglobin (Bld) [Mass/Vol] 13.0 g/dL 11.8-15.4 [facility] Laboratory - Chemistry and C hemistry - challengeOrdered By: Sam Dukes on 09-21-2022 Magnesium [Mass/Vol] 1.8 mg/dL 1.6-2.6 [facility] - Chemistry and C hemistry - challengeOrdered By: Debbie Mac on 09-21-2022 Natriuretic peptide B (Bld) [Mass/Vol] 203.0 pg/mL 5-100 [facility] Leukocytes [#/volume] correc anne marie for nucleated erythrocytes in Blood by Automated counOrdered By: Sam Dukes on 09-21-2022 WBC corrected for nucl RBC Auto (Bld) [#/Vol] 5.7 10*3/uL 3.8-11.6 [facility] Lymphocytes Auto (Bld) [#/Vo l]Ordered By: Sam Dukes on 09-21-2022 Lymphocytes (Bld) [#/Vol] 1.1 10*3/uL 1.00-4.8 [facility] Lymphocytes/100 WBC Auto (Bl d)Ordered By: Sam Dukes on 09-21-2022 Lymphocytes/100 WBC (Bld) 18.9 % . [facility] MCH Auto (RBC) [Entitic mass ]Ordered By: Sam Dukes on 09-21-2022 MCH (RBC) [Entitic mass] 29.6 pg 24.7-34.3 [facility] MCHC Auto (RBC) [Mass/Vol]Or dered By: Sam Dukes on 09-21-2022 MCHC (RBC) [Mass/Vol] 32.9 g/dL 32.0-35.0 [facility] MCV Auto (RBC) [Entitic vol] Ordered By: Sam Dukes on 09-21-2022 MCV (RBC) [Entitic vol] 89.8 fL 80-100 [facility] Monocytes Auto (Bld) [#/Vol] Ordered By: Sam Dukes on 09-21-2022 Monocytes (Bld) [#/Vol] 0.4 10*3/uL 0.0-0.8 [facility] Monocytes/100 WBC Auto (Bld) Ordered By: Sam Dukes on 09-21-2022 Monocytes/100 WBC (Bld) 7.6 % . [facility] Neutrophils Auto (Bld) [#/Vo l]Ordered By: Sam Dukes on 09-21-2022 Neutrophils (Bld) [#/Vol] 3.9 10*3/uL 1.8-7.7 [facility] Neutrophils/100 WBC Auto (Bl d)Ordered By: Sam Dukes on 09-21-2022 Neutrophils/100 WBC (Bld) 68.2 % . [facility] No Panel InformationOrdered By: Sam Dukes on 09-21-2022 Estimated GFR () 59 mL/Min [facility] Comment on above: GFR estimated refere nce range: According to KDOQI guidelines, <60 ml/min/1.73m2 is sufficient to diagnose a patient with chronic kidney disease. Pharmacy Creatinine Clearance (Chem 37.27 [facility] Nucleated erythrocytes [Pres ence] in Blood by Automated countOrdered By: Sam Dukes on 09-21-2022 Nucleated RBC Auto Ql (Bld) 0.0 /100{WBC} 0-0.5 [facility] Platelet mean volume Auto (B ld) [Entitic vol]Ordered By: Sam Dukes on 09-21-2022 Platelet mean volume (Bld) [Entitic vol] 9.5 fL 6.3-10.7 [facility] Platelets Auto (Bld) [#/Vol] Ordered By: Sam Dukes on 09-21-2022 Platelets (Bld) [#/Vol] 173 10*3/uL 150-450 [facility] RBC Auto (Bld) [#/Vol]Ordere d By: Sam Dukes on 09-21-2022 RBC (Bld) [#/Vol] 4.41 10*6/uL 3.60-5.00 [facility] Serum or plasma anion gap de terminationOrdered By: Sam Dukes on 09-21-2022 Anion gap [Moles/Vol] 11.0 mmol/L 6.0-15.0 [facility] Serum or plasma calcium mitch urement (mass/volume)Ordered By: Sam Dukes on 09-21-2022 Calcium [Mass/Vol] 8.6 mg/dL 8.2-10.2 [facility] Serum or plasma chloride carlitos surement (moles/volume)Ordered By: Sam Dukes on 09-21-2022 Chloride [Moles/Vol] 107 mmol/L 95-114 [facility] Serum or plasma creatine kin ase MB (CKMB)/total creatine kinase (CK) ratio by calculaOrdered By: Debbie Mac on 09-21-2022 CK.MB Calc [Catalytic fraction] 2.5 % 0.00-2.50 [facility] Serum or plasma creatine kin ase MB measurement (mass/volume)Ordered By: Debbie Mac on 09-21-2022 CK.MB [Mass/Vol] 1.9 ng/mL 0.6-6.3 [facility] Serum or plasma glucose mitch urement (mass/volume)Ordered By: Sam Dukes on 09-21-2022 Glucose [Mass/Vol] 94 mg/dL 70-100 [facility] Comment on above: ADA recommended refe rence rangeRandom Glucose Reference Range is dependent on time and content of last meal. Glucose of more than 200 mg/dL in a nonstressed, ambulatory subject supports the diagnosis of Diabetes Mellitus. Serum or plasma potassium me asurement (moles/volume)Ordered By: Sam Dukes on 09-21-2022 Potassium [Moles/Vol] 3.9 mmol/L 3.5-5.1 [facility] Serum or plasma sodium measu rement (moles/volume)Ordered By: Sam Dukes on 09-21-2022 Sodium [Moles/Vol] 137 mmol/L 136-146 [facility] Serum or plasma total carbon dioxide measurement (moles/volume)Ordered By: Sam Dukes on 09-21-2022 CO2 [Moles/Vol] 22.9 mmol/L 22.0-30.0 [facility] Serum or plasma urea nitroge n measurement (mass/volume)Ordered By: Sam Dukes on 09-21-2022 Urea nitrogen [Mass/Vol] 18 mg/dL 9-23 [facility] Troponin I.cardiac [Mass/vol ume] in Serum or Plasma by High sensitivity methodOrdered By: Debbie Mac on 09-21-2022 Troponin I.cardiac High sensitivity method [Mass/Vol] 9 pg/mL 0-15 [facility] WBC Auto (Bld) [#/Vol]Ordere d By: Sam Dukes on 09-21-2022 WBC (Bld) [#/Vol] 5.7 10*3/uL 3.8-11.6 [facility] Glucose Glucometer (BldC) [M ass/Vol]Ordered By: Sam Dukes on 09-19-2022 Glucose [Mass/Vol] 93 mg/dL [facility] Comment on above: Random Glucose Refer ence Range is dependent on time and content of last meal. Glucose of more than 200 mg/dL in a nonstressed, ambulatory subject supports the diagnosis of Diabetes Mellitus. No Panel InformationOrdered By: Sam Dukes on 09-19-2022 Bedside Glucose Comment Glu2: cleaned meter [facility] Activated partial thrombopla stin time (aPTT) in platelet poor plasma by coagulation aOrdered By: Indy Rolon on 09-17-2022 aPTT Coag (PPP) [Time] 40.4 s 25.1-36.5 [facility] Automated erythrocytes count in urine sediment (number/area)Ordered By: Indy Rolon on 09-17-2022 RBC Auto (Urine sed) [#/Area] 10-19 [HPF] 0-4 [facility] Automated leukocytes count i n urine sediment (number/area)Ordered By: Indy Rolon on 09-17-2022 WBC Auto (Urine sed) [#/Area] 20-49 [HPF] 0-4 [facility] Automated urine hyaline cast s count (number/volume)Ordered By: Indy Rolon on 09-17-2022 Hyaline casts Auto (U) [#/Vol] 3-4 [LPF] 0-1 [facility] Basophils Auto (Bld) [#/Vol] Ordered By: Indy Rolon on 09-17-2022 Basophils (Bld) [#/Vol] 0.0 10*3/uL 0.0-0.2 [facility] Basophils/100 WBC Auto (Bld) Ordered By: Indy Rolon on 09-17-2022 Basophils/100 WBC (Bld) 0.6 % . [facility] Bilirubin Test strip Ql (U)O rdered By: Indy Rolon on 09-17-2022 Bilirubin Ql (U) Negative Negative [facility] Body fluid albumin measureme nt (mass/volume)Ordered By: Indy Rolon on 09-17-2022 Albumin (Body fld) [Mass/Vol] 4.1 g/dL 3.2-5.5 [facility] Casts typing in urine sedime nt by light microscopyOrdered By: Indy Rolon on 09-17-2022 Casts LM Nom (Urine sed) None seen [LPF] None Seen [facility] Color Auto (U)Ordered By: Jordan Rolon on 09-17-2022 Color (U) Dark yellow Yellow [facility] Creatinine and Glomerular fi ltration rate.predicted panel (S/P/Bld)Ordered By: Indy Rolon on 09-17-2022 Creatinine [Mass/Vol] 1.23 mg/dL 0.44-1.03 [facility] Eosinophils Auto (Bld) [#/Vo l]Ordered By: Indy Rolon on 09-17-2022 Eosinophils (Bld) [#/Vol] 0.3 10*3/uL 0.0-0.45 [facility] Eosinophils/100 WBC Auto (Bl d)Ordered By: Indy Rolon on 09-17-2022 Eosinophils/100 WBC (Bld) 3.5 % . [facility] Erythrocyte distribution wid th Auto (RBC) [Ratio]Ordered By: Indy Rolon on 09-17-2022 Erythrocyte distribution width (RBC) [Ratio] 13.5 % 11.9-15.3 [facility] Estimated glomerular filtrat ion rate (GFR) non- AmericanOrdered By: Indy Rolon on 09-17-2022 GFR/1.73 sq M.predicted among non-blacks MDRD (S/P/Bld) [Vol rate/Area] 42 mL/Min [facility] Globulin Calc (S) [Mass/Vol] Ordered By: Indy Rolon on 09-17-2022 Globulin (S) [Mass/Vol] 2.2 g/dL [facility] Hematocrit Auto (Bld) [Volum e fraction]Ordered By: Indy Rolon on 09-17-2022 Hematocrit (Bld) [Volume fraction] 43.5 % 34.0-46.4 [facility] Hemoglobin [Mass/volume] in BloodOrdered By: Indy Rolon on 09-17-2022 Hemoglobin (Bld) [Mass/Vol] 14.4 g/dL 11.8-15.4 [facility] Ketones Auto test strip (U) [Mass/Vol]Ordered By: Indy Rolon on 09-17-2022 Ketones (U) [Mass/Vol] Trace Negative [facility] Laboratory - Chemistry and C hemistry - challengeOrdered By: Indy Rolon on 09-17-2022 Magnesium [Mass/Vol] 2.1 mg/dL 1.6-2.6 [facility] Natriuretic peptide B (Bld) [Mass/Vol] 292.0 pg/mL 5-100 [facility] Laboratory - CoagulationOrde red By: Indy Rolon on 09-17-2022 PT Coag (PPP) [Time] 23.4 s 9.0-12.9 [facility] Leukocytes [#/volume] correc anne marie for nucleated erythrocytes in Blood by Automated counOrdered By: Indy Rolon on 09-17-2022 WBC corrected for nucl RBC Auto (Bld) [#/Vol] 8.0 10*3/uL 3.8-11.6 [facility] Lymphocytes Auto (Bld) [#/Vo l]Ordered By: Indy Rolon on 09-17-2022 Lymphocytes (Bld) [#/Vol] 1.2 10*3/uL 1.00-4.8 [facility] Lymphocytes/100 WBC Auto (Bl d)Ordered By: Indy Rolon on 09-17-2022 Lymphocytes/100 WBC (Bld) 15.2 % . [facility] MCH Auto (RBC) [Entitic mass ]Ordered By: Indy Rolon on 09-17-2022 MCH (RBC) [Entitic mass] 30.1 pg 24.7-34.3 [facility] MCHC Auto (RBC) [Mass/Vol]Or dered By: Indy Rolon on 09-17-2022 MCHC (RBC) [Mass/Vol] 33.2 g/dL 32.0-35.0 [facility] MCV Auto (RBC) [Entitic vol] Ordered By: Indy Rolon on 09-17-2022 MCV (RBC) [Entitic vol] 90.6 fL 80-100 [facility] Monocyte distribution width [Entitic volume] in Blood by AutomatedOrdered By: Indy Rolon on 09-17-2022 Monocyte distribution width Auto (Bld) [Entitic vol] 19.67 % 0.00-20.00 [facility] Monocytes Auto (Bld) [#/Vol] Ordered By: Indy Rolon on 09-17-2022 Monocytes (Bld) [#/Vol] 0.6 10*3/uL 0.0-0.8 [facility] Monocytes/100 WBC Auto (Bld) Ordered By: nIdy Rolon on 09-17-2022 Monocytes/100 WBC (Bld) 7.1 % . [facility] Neutrophils Auto (Bld) [#/Vo l]Ordered By: Indy Rolon on 09-17-2022 Neutrophils (Bld) [#/Vol] 5.9 10*3/uL 1.8-7.7 [facility] Neutrophils/100 WBC Auto (Bl d)Ordered By: Indy Rolon on 09-17-2022 Neutrophils/100 WBC (Bld) 73.6 % . [facility] Nitrite Test strip Ql (U)Ord ered By: Indy Rolon on 09-17-2022 Nitrite Ql (U) Negative Negative [facility] No Panel InformationOrdered By: Indy Rolon on 09-17-2022 Estimated GFR () 51 mL/Min [facility] Comment on above: GFR estimated refere nce range: According to KDOQI guidelines, <60 ml/min/1.73m2 is sufficient to diagnose a patient with chronic kidney disease. Pharmacy Creatinine Clearance (Chem N/A [facility] Nucleated erythrocytes [Pres ence] in Blood by Automated countOrdered By: Indy Rolon on 09-17-2022 Nucleated RBC Auto Ql (Bld) 0.3 /100{WBC} 0-0.5 [facility] Platelet mean volume Auto (B ld) [Entitic vol]Ordered By: Indy Rolon on 09-17-2022 Platelet mean volume (Bld) [Entitic vol] 9.4 fL 6.3-10.7 [facility] Platelet poor plasma interna tional normalized ratio (INR) by coagulation assay (relatOrdered By: Indy Rolon on 09-17-2022 INR Coag (PPP) [Relative time] 2.0 {INR} [facility] Comment on above: INR Therapeutic Rang [...] 09-17-2022 Platelets (Bld) [#/Vol] 203 10*3/uL 150-450 [facility] Protein Auto test strip (U) [Mass/Vol]Ordered By: Indy Rloon on 09-17-2022 Protein (U) [Mass/Vol] Trace mg/dL Negative [facility] Protein [Mass/volume] in Ser um or PlasmaOrdered By: Indy Rolon on 09-17-2022 Protein [Mass/Vol] 6.3 g/dL 6.1-7.9 [facility] RBC Auto (Bld) [#/Vol]Ordere d By: Indy Rolon on 09-17-2022 RBC (Bld) [#/Vol] 4.80 10*6/uL 3.60-5.00 [facility] Serum or plasma alanine mahmood otransferase measurement without P-5'-P (enzymatic activiOrdered By: Indy Rolon on 09-17-2022 ALT No additional P-5'-P [Catalytic activity/Vol] 20 U/L 10-60 [facility] Serum or plasma albumin/glob ulin mass ratioOrdered By: Indy Rolon on 09-17-2022 Albumin/Globulin [Mass ratio] 1.9 {ratio} [facility] Serum or plasma alkaline mia sphatase measurement (enzymatic activity/volume)Ordered By: Indy Rolon on 09-17-2022 ALP [Catalytic activity/Vol] 79 U/L 32-92 [facility] Serum or plasma anion gap de terminationOrdered By: Indy Rolon on 09-17-2022 Anion gap [Moles/Vol] 14.2 mmol/L 6.0-15.0 [facility] Serum or plasma aspartate am inotransferase measurement (enzymatic activity/volume)Ordered By: Indy Rolon on 09-17-2022 AST [Catalytic activity/Vol] 28 U/L 10-42 [facility] Serum or plasma calcium mitch urement (mass/volume)Ordered By: Indy Rolon on 09-17-2022 Calcium [Mass/Vol] 9.4 mg/dL 8.2-10.2 [facility] Serum or plasma chloride carlitos surement (moles/volume)Ordered By: Indy Rolon on 09-17-2022 Chloride [Moles/Vol] 103 mmol/L 95-114 [facility] Serum or plasma glucose mitch urement (mass/volume)Ordered By: Indy Rolon on 09-17-2022 Glucose [Mass/Vol] 94 mg/dL 70-100 [facility] Comment on above: ADA recommended refe rence rangeRandom Glucose Reference Range is dependent on time and content of last meal. Glucose of more than 200 mg/dL in a nonstressed, ambulatory subject supports the diagnosis of Diabetes Mellitus. Serum or plasma potassium me asurement (moles/volume)Ordered By: Indy Rolon on 09-17-2022 Potassium [Moles/Vol] 4.7 mmol/L 3.5-5.1 [facility] Serum or plasma sodium measu rement (moles/volume)Ordered By: Indy Rolon on 09-17-2022 Sodium [Moles/Vol] 138 mmol/L 136-146 [facility] Serum or plasma total biliru bin measurement (mass/volume)Ordered By: Indy Rolon on 09-17-2022 Bilirubin [Mass/Vol] 1.1 mg/dL 0.3-1.2 [facility] Serum or plasma total carbon dioxide measurement (moles/volume)Ordered By: Indy Rolon on 09-17-2022 CO2 [Moles/Vol] 25.5 mmol/L 22.0-30.0 [facility] Serum or plasma urea nitroge n measurement (mass/volume)Ordered By: Indy Rolon on 09-17-2022 Urea nitrogen [Mass/Vol] 24 mg/dL 9-23 [facility] Specific gravity Auto test s trip (U) [Rel density]Ordered By: Indy Rolon on 09-17-2022 Specific gravity (U) [Rel density] 1.024 1.001-1.03 0 [facility] Squamous epithelial cells de tection in urine sediment by light microscopyOrdered By: Indy Rolon on 09-17-2022 Epithelial cells.squamous LM Ql (Urine sed) 10-19 [HPF] 0-2 [facility] Troponin I.cardiac [Mass/vol ume] in Serum or Plasma by High sensitivity methodOrdered By: Indy Rolon on 09-17-2022 Troponin I.cardiac High sensitivity method [Mass/Vol] 8 pg/mL 0-15 [facility] Urine bacteria detection by automated methodOrdered By: Indy Rolon on 09-17-2022 Bacteria Auto Ql (U) 3+ None Seen [facility] Urine clarity by refractomet ry automatedOrdered By: Indy Rolon on 09-17-2022 Clarity Refractometry automated (U) Cloudy Clear [facility] Urine culture routineOrdered By: Indy Rolon on 09-17-2022 Bacteria identified Cx Nom (U) Escherichia coli [facility] Urine glucose measurement by automated test strip (mass/volume)Ordered By: Indy Rolon on 09-17-2022 Glucose Auto test strip (U) [Mass/Vol] Normal mg/dL Normal [facility] Urine hemoglobin detection b y automated test stripOrdered By: Indy Rolon on 09-17-2022 Hemoglobin Auto test strip Ql (U) Trace Negative [facility] Urine leukocyte esterase det ection by automated test stripOrdered By: Indy Rolon on 09-17-2022 Leukocyte esterase Auto test strip Ql (U) 3+ Negative [facility] Urobilinogen Auto test strip (U) [Mass/Vol]Ordered By: Indy Rolon on 09-17-2022 Urobilinogen (U) [Mass/Vol] Normal mg/dL Normal [facility] WBC Auto (Bld) [#/Vol]Ordere d By: Indy Rolon on 09-17-2022 WBC (Bld) [#/Vol] 8.0 10*3/uL 3.8-11.6 [facility] Yeast detection in urine sed iment by light microscopyOrdered By: Indy Rolon on 09-17-2022 Yeast LM Ql (Urine sed) Rare [HPF] None Seen [facility] pH Auto test strip (U)Ordere d By: Indy Rolon on 09-17-2022 pH (U) 5.5 [pH] 5.0-9.0 [facility] Basophils Auto (Bld) [#/Vol] Ordered By: Jay Ceja on 09-05-2022 Basophils (Bld) [#/Vol] 0.0 10*3/uL 0.0-0.2 [facility] Basophils/100 WBC Auto (Bld) Ordered By: Jay Ceja on 09-05-2022 Basophils/100 WBC (Bld) 0.9 % . [facility] Creatinine and Glomerular fi ltration rate.predicted panel (S/P/Bld)Ordered By: Jay Ceja on 09-05-2022 Creatinine [Mass/Vol] 1.57 mg/dL 0.44-1.03 [facility] Eosinophils Auto (Bld) [#/Vo l]Ordered By: Jay Ceja on 09-05-2022 Eosinophils (Bld) [#/Vol] 0.3 10*3/uL 0.0-0.45 [facility] Eosinophils/100 WBC Auto (Bl d)Ordered By: Jay Ceja on 09-05-2022 Eosinophils/100 WBC (Bld) 4.7 % . [facility] Erythrocyte distribution wid th Auto (RBC) [Ratio]Ordered By: Jay Ceja on 09-05-2022 Erythrocyte distribution width (RBC) [Ratio] 13.8 % 11.9-15.3 [facility] Estimated glomerular filtrat ion rate (GFR) non- AmericanOrdered By: Jay Ceja on 09-05-2022 GFR/1.73 sq M.predicted among non-blacks MDRD (S/P/Bld) [Vol rate/Area] 32 mL/Min [facility] Hematocrit Auto (Bld) [Volum e fraction]Ordered By: Jay Ceja on 09-05-2022 Hematocrit (Bld) [Volume fraction] 42.4 % 34.0-46.4 [facility] Hemoglobin [Mass/volume] in BloodOrdered By: Jay Ceja on 09-05-2022 Hemoglobin (Bld) [Mass/Vol] 14.0 g/dL 11.8-15.4 [facility] Leukocytes [#/volume] correc anne marie for nucleated erythrocytes in Blood by Automated counOrdered By: Jay Ceja on 09-05-2022 WBC corrected for nucl RBC Auto (Bld) [#/Vol] 5.6 10*3/uL 3.8-11.6 [facility] Lymphocytes Auto (Bld) [#/Vo l]Ordered By: Jay Ceja on 09-05-2022 Lymphocytes (Bld) [#/Vol] 1.4 10*3/uL 1.00-4.8 [facility] Lymphocytes/100 WBC Auto (Bl d)Ordered By: Jay Ceja on 09-05-2022 Lymphocytes/100 WBC (Bld) 25.6 % . [facility] MCH Auto (RBC) [Entitic mass ]Ordered By: Jay Ceja on 09-05-2022 MCH (RBC) [Entitic mass] 29.7 pg 24.7-34.3 [facility] MCHC Auto (RBC) [Mass/Vol]Or dered By: Jay Ceja on 09-05-2022 MCHC (RBC) [Mass/Vol] 32.9 g/dL 32.0-35.0 [facility] MCV Auto (RBC) [Entitic vol] Ordered By: Jay Ceja on 09-05-2022 MCV (RBC) [Entitic vol] 90.2 fL 80-100 [facility] Monocytes Auto (Bld) [#/Vol] Ordered By: Jay Ceja on 09-05-2022 Monocytes (Bld) [#/Vol] 0.5 10*3/uL 0.0-0.8 [facility] Monocytes/100 WBC Auto (Bld) Ordered By: Jay Ceja on 09-05-2022 Monocytes/100 WBC (Bld) 9.7 % . [facility] Neutrophils Auto (Bld) [#/Vo l]Ordered By: Jay Ceja on 09-05-2022 Neutrophils (Bld) [#/Vol] 3.3 10*3/uL 1.8-7.7 [facility] Neutrophils/100 WBC Auto (Bl d)Ordered By: Jay Ceja on 09-05-2022 Neutrophils/100 WBC (Bld) 59.1 % . [facility] No Panel InformationOrdered By: Jay Ceja on 09-05-2022 Estimated GFR () 38 mL/Min [facility] Comment on above: GFR estimated refere nce range: According to KDOQI guidelines, <60 ml/min/1.73m2 is sufficient to diagnose a patient with chronic kidney disease. Pharmacy Creatinine Clearance (Chem 24.80 [facility] Nucleated erythrocytes [Pres ence] in Blood by Automated countOrdered By: Jay Ceja on 09-05-2022 Nucleated RBC Auto Ql (Bld) 0.2 /100{WBC} 0-0.5 [facility] Platelet mean volume Auto (B ld) [Entitic vol]Ordered By: Jay Ceja on 09-05-2022 Platelet mean volume (Bld) [Entitic vol] 9.2 fL 6.3-10.7 [facility] Platelets Auto (Bld) [#/Vol] Ordered By: Jay Ceja on 09-05-2022 Platelets (Bld) [#/Vol] 190 10*3/uL 150-450 [facility] RBC Auto (Bld) [#/Vol]Ordere d By: Jay Ceja on 09-05-2022 RBC (Bld) [#/Vol] 4.70 10*6/uL 3.60-5.00 [facility] Serum or plasma anion gap de terminationOrdered By: Jay Ceja on 09-05-2022 Anion gap [Moles/Vol] 11.5 mmol/L 6.0-15.0 [facility] Serum or plasma calcium mitch urement (mass/volume)Ordered By: Jay Ceja on 09-05-2022 Calcium [Mass/Vol] 8.9 mg/dL 8.2-10.2 [facility] Serum or plasma chloride carlitos surement (moles/volume)Ordered By: Jay Ceja on 09-05-2022 Chloride [Moles/Vol] 105 mmol/L 95-114 [facility] Serum or plasma glucose mitch urement (mass/volume)Ordered By: Jay Ceja on 09-05-2022 Glucose [Mass/Vol] 103 mg/dL 70-100 [facility] Comment on above: ADA recommended refe rence rangeRandom Glucose Reference Range is dependent on time and content of last meal. Glucose of more than 200 mg/dL in a nonstressed, ambulatory subject supports the diagnosis of Diabetes Mellitus. Serum or plasma potassium me asurement (moles/volume)Ordered By: Jay Ceja on 09-05-2022 Potassium [Moles/Vol] 4.0 mmol/L 3.5-5.1 [facility] Serum or plasma sodium measu rement (moles/volume)Ordered By: Jay Ceja on 09-05-2022 Sodium [Moles/Vol] 140 mmol/L 136-146 [facility] Serum or plasma total carbon dioxide measurement (moles/volume)Ordered By: Jay Ceja on 09-05-2022 CO2 [Moles/Vol] 27.5 mmol/L 22.0-30.0 [facility] Serum or plasma urea nitroge n measurement (mass/volume)Ordered By: Jay Ceja on 09-05-2022 Urea nitrogen [Mass/Vol] 29 mg/dL 9-23 [facility] WBC Auto (Bld) [#/Vol]Ordere d By: Jay Ceja on 09-05-2022 WBC (Bld) [#/Vol] 5.6 10*3/uL 3.8-11.6 [facility] Glucose mean value [Mass/vol ume] in Blood Estimated from glycated hemoglobinOrdered By: Jay Ceja on 09-02-2022 Average glucose Estimated from glycated hemoglobin (Bld) [Mass/Vol] 117 mg/dL [facility] Hemoglobin A1c percentageOrd ered By: Jay Ceja on 09-02-2022 HbA1c (Bld) [Mass fraction] 5.7 % 4.3-5.6 [facility] Comment on above: Increased risk for d iabetes: 5.7 - 6.4diabetes: >6.4glycemic control for adults with diabetes: <7.0 Laboratory - Chemistry and C hemistry - challengeOrdered By: Jay Ceja on 09-02-2022 Magnesium [Mass/Vol] 1.8 mg/dL 1.6-2.6 [facility] Natriuretic peptide B (Bld) [Mass/Vol] 307.0 pg/mL 5-100 [facility] TSH DL <= 0.005 mIU/L QnOrde red By: Jay Ceja on 09-02-2022 TSH Qn 3.39 m[IU]/L 0.45-5.33 [facility] Troponin I.cardiac [Mass/vol ume] in Serum or Plasma by High sensitivity methodOrdered By: Jay Ceja on 09-02-2022 Troponin I.cardiac High sensitivity method [Mass/Vol] 6 pg/mL 0-15 [facility] Albumin [Mass/volume] in Ser um or PlasmaOrdered By: Luis Lennon on 09-01-2022 Albumin [Mass/Vol] 3.7 g/dL 3.2-5.5 [facility] Automated erythrocytes count in urine sediment (number/area)Ordered By: Luis Lennon on 09-01-2022 RBC Auto (Urine sed) [#/Area] 3-4 [HPF] 0-4 [facility] Automated leukocytes count i n urine sediment (number/area)Ordered By: Luis Lennon on 09-01-2022 WBC Auto (Urine sed) [#/Area] 5-9 [HPF] 0-4 [facility] Basophils Auto (Bld) [#/Vol] Ordered By: Luis Lennon on 09-01-2022 Basophils (Bld) [#/Vol] 0.1 10*3/uL 0.0-0.2 [facility] Basophils/100 WBC Auto (Bld) Ordered By: Luis Lennon on 09-01-2022 Basophils/100 WBC (Bld) 0.8 % . [facility] Bilirubin Test strip Ql (U)O rdered By: Luis Lennon on 09-01-2022 Bilirubin Ql (U) Negative Negative [facility] Color Auto (U)Ordered By: Robert Lennon on 09-01-2022 Color (U) Dark yellow Yellow [facility] Creatinine and Glomerular fi ltration rate.predicted panel (S/P/Bld)Ordered By: Luis Lennon on 09-01-2022 Creatinine [Mass/Vol] 1.14 mg/dL 0.44-1.03 [facility] Eosinophils Auto (Bld) [#/Vo l]Ordered By: Luis Lennon on 09-01-2022 Eosinophils (Bld) [#/Vol] 0.3 10*3/uL 0.0-0.45 [facility] Eosinophils/100 WBC Auto (Bl d)Ordered By: Luis Lennon on 09-01-2022 Eosinophils/100 WBC (Bld) 4.1 % . [facility] Erythrocyte distribution wid th Auto (RBC) [Ratio]Ordered By: Luis Lennon on 09-01-2022 Erythrocyte distribution width (RBC) [Ratio] 14.3 % 11.9-15.3 [facility] Estimated glomerular filtrat ion rate (GFR) non- AmericanOrdered By: Luis Lennon on 09-01-2022 GFR/1.73 sq M.predicted among non-blacks MDRD (S/P/Bld) [Vol rate/Area] 46 mL/Min [facility] Globulin Calc (S) [Mass/Vol] Ordered By: Luis Lennon on 09-01-2022 Globulin (S) [Mass/Vol] 2.2 g/dL [facility] Hematocrit Auto (Bld) [Volum e fraction]Ordered By: Luis Lennon on 09-01-2022 Hematocrit (Bld) [Volume fraction] 43.4 % 34.0-46.4 [facility] Hemoglobin [Mass/volume] in BloodOrdered By: Luis Lennon on 09-01-2022 Hemoglobin (Bld) [Mass/Vol] 13.9 g/dL 11.8-15.4 [facility] Ketones Auto test strip (U) [Mass/Vol]Ordered By: Luis Lennon on 09-01-2022 Ketones (U) [Mass/Vol] Trace Negative [facility] Laboratory - Chemistry and C hemistry - challengeOrdered By: Luis Lennon on 09-01-2022 Natriuretic peptide B (Bld) [Mass/Vol] 445.0 pg/mL 5-100 [facility] Laboratory - UrinalysisOrder ed By: Luis Lennon on 09-01-2022 Hyaline casts LM Ql (Urine sed) 0-8 [LPF] 0-8 [facility] Leukocytes [#/volume] correc anne marie for nucleated erythrocytes in Blood by Automated counOrdered By: Luis Lennon on 09-01-2022 WBC corrected for nucl RBC Auto (Bld) [#/Vol] 8.1 10*3/uL 3.8-11.6 [facility] Lymphocytes Auto (Bld) [#/Vo l]Ordered By: Luis Lennon on 09-01-2022 Lymphocytes (Bld) [#/Vol] 1.1 10*3/uL 1.00-4.8 [facility] Lymphocytes/100 WBC Auto (Bl d)Ordered By: Luis Lennon on 09-01-2022 Lymphocytes/100 WBC (Bld) 13.9 % . [facility] MCH Auto (RBC) [Entitic mass ]Ordered By: Luis Lennon on 09-01-2022 MCH (RBC) [Entitic mass] 29.3 pg 24.7-34.3 [facility] MCHC Auto (RBC) [Mass/Vol]Or dered By: Luis Lennon on 09-01-2022 MCHC (RBC) [Mass/Vol] 32.0 g/dL 32.0-35.0 [facility] MCV Auto (RBC) [Entitic vol] Ordered By: Luis Lennon on 09-01-2022 MCV (RBC) [Entitic vol] 91.4 fL 80-100 [facility] Monocyte distribution width [Entitic volume] in Blood by AutomatedOrdered By: Luis Lennon on 09-01-2022 Monocyte distribution width Auto (Bld) [Entitic vol] 16.84 % 0.00-20.00 [facility] Monocytes Auto (Bld) [#/Vol] Ordered By: Luis Lennon on 09-01-2022 Monocytes (Bld) [#/Vol] 0.6 10*3/uL 0.0-0.8 [facility] Monocytes/100 WBC Auto (Bld) Ordered By: Luis Lennon on 09-01-2022 Monocytes/100 WBC (Bld) 7.5 % . [facility] Neutrophils Auto (Bld) [#/Vo l]Ordered By: Luis Lennon on 09-01-2022 Neutrophils (Bld) [#/Vol] 5.9 10*3/uL 1.8-7.7 [facility] Neutrophils/100 WBC Auto (Bl d)Ordered By: Luis Lennon on 09-01-2022 Neutrophils/100 WBC (Bld) 73.7 % . [facility] Nitrite Test strip Ql (U)Ord ered By: Luis Lennon on 09-01-2022 Nitrite Ql (U) Negative Negative [facility] No Panel InformationOrdered By: Luis Lennon on 09-01-2022 Estimated GFR () 56 mL/Min [facility] Comment on above: GFR estimated refere nce range: According to KDOQI guidelines, <60 ml/min/1.73m2 is sufficient to diagnose a patient with chronic kidney disease. Pharmacy Creatinine Clearance (Chem 35.69 [facility] Nucleated erythrocytes [Pres ence] in Blood by Automated countOrdered By: Luis Lennon on 09-01-2022 Nucleated RBC Auto Ql (Bld) 0.1 /100{WBC} 0-0.5 [facility] Platelet mean volume Auto (B ld) [Entitic vol]Ordered By: Luis Lennon on 09-01-2022 Platelet mean volume (Bld) [Entitic vol] 9.1 fL 6.3-10.7 [facility] Platelets Auto (Bld) [#/Vol] Ordered By: Luis Lennon on 09-01-2022 Platelets (Bld) [#/Vol] 208 10*3/uL 150-450 [facility] Protein Auto test strip (U) [Mass/Vol]Ordered By: Luis Lennon on 09-01-2022 Protein (U) [Mass/Vol] 30 mg/dL [facility] Protein [Mass/volume] in Ser um or PlasmaOrdered By: Luis Lennon on 09-01-2022 Protein [Mass/Vol] 5.9 g/dL 6.1-7.9 [facility] RBC Auto (Bld) [#/Vol]Ordere d By: Luis Lennon on 09-01-2022 RBC (Bld) [#/Vol] 4.74 10*6/uL 3.60-5.00 [facility] Serum or plasma alanine mahmood otransferase measurement without P-5'-P (enzymatic activiOrdered By: Luis Lennon on 09-01-2022 ALT No additional P-5'-P [Catalytic activity/Vol] 33 U/L 10-60 [facility] Serum or plasma albumin/glob ulin mass ratioOrdered By: Luis Lennon on 09-01-2022 Albumin/Globulin [Mass ratio] 1.7 {ratio} [facility] Serum or plasma alkaline mia sphatase measurement (enzymatic activity/volume)Ordered By: Luis Lennon on 09-01-2022 ALP [Catalytic activity/Vol] 70 U/L 32-92 [facility] Serum or plasma anion gap de terminationOrdered By: Luis Lennon on 09-01-2022 Anion gap [Moles/Vol] 9.3 mmol/L 6.0-15.0 [facility] Serum or plasma aspartate am inotransferase measurement (enzymatic activity/volume)Ordered By: Luis Lennon on 09-01-2022 AST [Catalytic activity/Vol] 33 U/L 10-42 [facility] Serum or plasma calcium mitch urement (mass/volume)Ordered By: Luis Lennon on 09-01-2022 Calcium [Mass/Vol] 9.0 mg/dL 8.2-10.2 [facility] Serum or plasma chloride carlitos surement (moles/volume)Ordered By: Luis Lennon on 09-01-2022 Chloride [Moles/Vol] 109 mmol/L 95-114 [facility] Serum or plasma glucose mitch urement (mass/volume)Ordered By: Luis Lennon on 09-01-2022 Glucose [Mass/Vol] 95 mg/dL 70-100 [facility] Comment on above: ADA recommended refe rence rangeRandom Glucose Reference Range is dependent on time and content of last meal. Glucose of more than 200 mg/dL in a nonstressed, ambulatory subject supports the diagnosis of Diabetes Mellitus. Serum or plasma potassium me asurement (moles/volume)Ordered By: Luis Lennon on 09-01-2022 Potassium [Moles/Vol] 4.2 mmol/L 3.5-5.1 [facility] Serum or plasma sodium measu rement (moles/volume)Ordered By: Luis Lennon on 09-01-2022 Sodium [Moles/Vol] 138 mmol/L 136-146 [facility] Serum or plasma total biliru bin measurement (mass/volume)Ordered By: Luis Lennon on 09-01-2022 Bilirubin [Mass/Vol] 1.3 mg/dL 0.3-1.2 [facility] Comment on above: Samples from patient s who have taken Naproxen have shown spurious elevation in Total Bilirubin levels. A metabolite of Naproxen, O-desmethylnaproxen, has been shown to interfere with the Dc-Day method for measuring Total Bilirubin. Serum or plasma total carbon dioxide measurement (moles/volume)Ordered By: Luis Lennon on 09-01-2022 CO2 [Moles/Vol] 23.9 mmol/L 22.0-30.0 [facility] Serum or plasma urea nitroge n measurement (mass/volume)Ordered By: Luis Lennon on 09-01-2022 Urea nitrogen [Mass/Vol] 23 mg/dL 9- [facility] Specific gravity Auto test s trip (U) [Rel density]Ordered By: Luis Lennon on 09-01-2022 Specific gravity (U) [Rel density] 1.022 1.001-1.03 0 [facility] Squamous epithelial cells de tection in urine sediment by light microscopyOrdered By: Luis Lennon on 09-01-2022 Epithelial cells.squamous LM Ql (Urine sed) 5-9 [HPF] 0-2 [facility] Troponin I.cardiac [Mass/vol ume] in Serum or Plasma by High sensitivity methodOrdered By: Luis Lennon on 09-01-2022 Troponin I.cardiac High sensitivity method [Mass/Vol] 7 pg/mL 0-15 [facility] Urine bacteria detection by automated methodOrdered By: Luis Lennon on 09-01-2022 Bacteria Auto Ql (U) None seen None Seen [facility] Urine clarity by refractomet ry automatedOrdered By: Luis Lennon on 09-01-2022 Clarity Refractometry automated (U) Clear Clear [facility] Urine culture routineOrdered By: Luis Lennon on 09-01-2022 Bacteria identified Cx Nom (U) 2 Days [facility] Urine glucose measurement by automated test strip (mass/volume)Ordered By: Luis Lennon on 09-01-2022 Glucose Auto test strip (U) [Mass/Vol] Normal mg/dL Normal [facility] Urine hemoglobin detection b y automated test stripOrdered By: Luis Lennon on 09-01-2022 Hemoglobin Auto test strip Ql (U) Negative Negative [facility] Urine leukocyte esterase det ection by automated test stripOrdered By: Luis Lennon on 09-01-2022 Leukocyte esterase Auto test strip Ql (U) 2+ Negative [facility] Urobilinogen Auto test strip (U) [Mass/Vol]Ordered By: Luis Lennon on 09-01-2022 Urobilinogen (U) [Mass/Vol] Normal mg/dL Normal [facility] WBC Auto (Bld) [#/Vol]Ordere d By: Luis Lennon on 09-01-2022 WBC (Bld) [#/Vol] 8.1 10*3/uL 3.8-11.6 [facility] pH Auto test strip (U)Ordere d By: Luis Lennon on 09-01-2022 pH (U) 5.5 [pH] 5.0-9.0 [facility] Office Visit (Cardiology)on 06-26-2022 Follow-up visit [...] Signs Recorded: 26Jun2022 02:26PM Heart Rate71, Apical [id number], LUE, Sitting [id number], LUE, Sitting Height4 ft 11 in Ychaqd802 lb BMI Uupnltkvhs55.92 kg/m2 BSA Calculated1.69 Tobacco Useb) No Falls Screening (Age 18+)a) No falls within the last year EKG COMPLETED IN OFFICE Physical Exam Constitutional: alert and in no acute distress. Neck: neck is supple, symmetric, trachea midline, no masses and no thyromegaly . Pulmonary: no increased work of breathing or signs of respiratory distress (more content not included)... Normal [facility] Tobacco Screening.on 022 Fall risk assessment a) No falls within the last year -[facility] [employer] 250 DO Work Phone: Tobacco use status CPHS b) No -[facility] [place] 250 DO Work Phone: [place] GASTR[employer] EMPTYon [...] FARRAH LOGAN Date: 2022-05-12 12:48 Normal [facility]on SARS-CoV-2 (COVID-19) RNA GUILLERMO+probe Ql (Unsp spec) Not detected Normal NOT DETECTED [facility] Comment on above: Result Comment: This test is not yet approved or cleared by the [place] FDA. When there are no FDA-approved or cleared tests available, and other criteria are met, FDA can make tests available under an emergency access mechanism called an Emergency Use Authorization (EUA). The EUA for this test is supported by the [employer] of Health and Human Service's (HHS's) declaration [...] consistent with SARS-CoV-2. Performed By: #### [facility] #### [facility] [address] [address] [address] Lori Sutton Office Visit (Cardiology)on 03-10-2022 [...] Weight Tips; Status:Complete - Retrospective Authorization; Done: [id number] Some eating tips that can help you lose weight.; Status:Complete - Retrospective Authorization; Done: [id number] Persistent atrial fibrillation IO EKG Electrocardiogram- 12 Lead; Status:Complete; Done: [id number] SocHx: Never a smoker Tobacco Use Screening; Status:Complete; Done: [id number] Patient Instructions Please bring all medicines, vitamins, [...] Dr. Debbie Mac MD Chief Complaint LESA GOLDEN is being seen for a 4 [...] the above has been addressed by her tool hardener Dr. Mota. She reports she underwent esophageal dilatation not too long ago. Her recent device check and EKG today demonstrate maintenance of sinus rhythm. Recent laboratory data showed creatinine 1.6. Previous echocardiogram showed LV systolic function in the normal range and a previous stress test was negative in [place]. Assessment 1. Persistent atrial fibrillation with clinical [...] tired. Cardiovascular: (more content not included)... Normal [facility] Tobacco Screening.on 022 Fall risk assessment a) No falls within the last year [facility] [employer] 250 DO Work Phone: Tobacco use status CPHS b) No [facility] [employer] 250 DO Work Phone: Albumin [Mass/volume] in Ser um or PlasmaOrdered By: John Mims on 03-09-2022 Albumin [Mass/Vol] 3.7 g/dL 3.2-5.5 [facility] Basophils Auto (Bld) [#/Vol] Ordered By: John Mims on 03-09-2022 Basophils (Bld) [#/Vol] 0.0 10*3/uL 0.0-0.2 [facility] Basophils/100 WBC Auto (Bld) Ordered By: John Mims on 03-09-2022 Basophils/100 WBC (Bld) 0.7 % . [facility] Blood hemoglobin measurement (mass/volume)Ordered By: John Mims on 03-09-2022 Hemoglobin (Bld) [Mass/Vol] 13.7 g/dL 11.8-15.4 [facility] Blood leukocytes automated c ount (number/volume)Ordered By: John Mims on 03-09-2022 WBC (Bld) [#/Vol] 6.2 10*3/uL 4.5-11.0 [facility] Creatinine and Glomerular fi ltration rate.predicted panel (S/P/Bld)Ordered By: John Mims on 03-09-2022 Creatinine [Mass/Vol] 1.10 mg/dL 0.44-1.03 [facility] Eosinophils Auto (Bld) [#/Vo l]Ordered By: John Mims on 03-09-2022 Eosinophils (Bld) [#/Vol] 0.3 10*3/uL 0.0-0.45 [facility] Eosinophils/100 WBC Auto (Bl d)Ordered By: John Mims on 03-09-2022 Eosinophils/100 WBC (Bld) 4.2 % . [facility] Erythrocyte distribution wid th Auto (RBC) [Ratio]Ordered By: John Mims on 03-09-2022 Erythrocyte distribution width (RBC) [Ratio] 13.3 % 11.9-15.3 [facility] Estimated glomerular filtrat ion rate (GFR) non- AmericanOrdered By: John Mims on 03-09-2022 GFR/1.73 sq M.predicted among non-blacks MDRD (S/P/Bld) [Vol rate/Area] 48 mL/Min [facility] Globulin Calc (S) [Mass/Vol] Ordered By: John Mims on 03-09-2022 Globulin (S) [Mass/Vol] 2.6 g/dL [facility] Hematocrit Auto (Bld) [Volum e fraction]Ordered By: John Mims on 03-09-2022 Hematocrit (Bld) [Volume fraction] 40.9 % 34.0-46.4 [facility] Laboratory - CoagulationOrde red By: John Mims on 03-09-2022 PT Coag (PPP) [Time] 17.6 s 9.0-12.9 [facility] - Hematology and Cell countsOrdered By: John Mims on 03-09-2022 Nucleated RBC/100 WBC (Bld) [Ratio] 0.0 % 0-0.5 [facility] Lymphocytes Auto (Bld) [#/Vo l]Ordered By: John Mims on 03-09-2022 Lymphocytes (Bld) [#/Vol] 1.1 10*3/uL 1.00-4.8 [facility] Lymphocytes/100 WBC Auto (Bl d)Ordered By: John Mims on 03-09-2022 Lymphocytes/100 WBC (Bld) 17.2 % . [facility] MCH Auto (RBC) [Entitic mass ]Ordered By: John Mims on 03-09-2022 MCH (RBC) [Entitic mass] 30.8 pg 24.7-34.3 [facility] MCHC Auto (RBC) [Mass/Vol]Or dered By: John Mims on 03-09-2022 MCHC (RBC) [Mass/Vol] 33.4 g/dL 32.0-35.[address] [facility] MCV Auto (RBC) [Entitic vol] Ordered By: John iMms on 03-09-2022 MCV (RBC) [Entitic vol] 92.2 fL 80-100 [facility] Monocyte %Ordered By: Letty Mims on 03-09-2022 Monocyte % 24 umol/L 11-35 [facility] Monocytes Auto (Bld) [#/Vol] Ordered By: John Mims on 03-09-2022 Monocytes (Bld) [#/Vol] 0.5 10*3/uL 0.0-0.8 [facility] Monocytes/100 WBC Auto (Bld) Ordered By: John Mims on 03-09-2022 Monocytes/100 WBC (Bld) 7.4 % . [facility] Neutrophils Auto (Bld) [#/Vo l]Ordered By: John Mims on 03-09-2022 Neutrophils (Bld) [#/Vol] 4.4 10*3/uL 1.8-7.7 [facility] Neutrophils/100 WBC Auto (Bl d)Ordered By: John Mims on 03-09-2022 Neutrophils/100 WBC (Bld) 70.5 % . [facility] No Panel InformationOrdered By: John Mims on 03-09-2022 Estimated GFR () 58 mL/Min [facility] Comment on above: GFR estimated refere nce range: According to KDOQI guidelines, <60 ml/min/1.73m2 is sufficient to diagnose a patient with chronic kidney disease. Pharmacy Creatinine Clearance (Chem N/A [facility] Platelet mean volume Auto (B ld) [Entitic vol]Ordered By: John Mims on 03-09-2022 Platelet mean volume (Bld) [Entitic vol] 8.5 fL 6.3-10.7 [facility] Platelet poor plasma interna tional normalized ratio (INR) by coagulation assay (relatOrdered By: John Mims on 03-09-2022 INR Coag (PPP) [Relative time] 1.6 {INR} [facility] Comment on above: INR Therapeutic Rang [...] 03-09-2022 Platelets (Bld) [#/Vol] 213 10*3/uL 150-450 [facility] Protein [Mass/volume] in Ser um or PlasmaOrdered By: John Mims on 03-09-2022 Protein [Mass/Vol] 6.3 g/dL 6.1-7.9 [facility] RBC Auto (Bld) [#/Vol]Ordere d By: John Mims on 03-09-2022 RBC (Bld) [#/Vol] 4.44 10*6/uL 3.60-5.00 [facility] Serum or plasma alanine mahmood otransferase measurement without P-5'-P (enzymatic activiOrdered By: John Mims on 03-09-2022 ALT No additional P-5'-P [Catalytic activity/Vol] 23 U/L 10-60 [facility] Serum or plasma albumin/glob ulin mass ratioOrdered By: John Mims on 03-09-2022 Albumin/Globulin [Mass ratio] 1.4 {ratio} [facility] Serum or plasma alkaline mia sphatase measurement (enzymatic activity/volume)Ordered By: John Mims on 03-09-2022 ALP [Catalytic activity/Vol] 98 U/L 32-92 [facility] Serum or plasma aspartate am inotransferase measurement (enzymatic activity/volume)Ordered By: John Mims on 03-09-2022 AST [Catalytic activity/Vol] 27 U/L 10-42 [facility] Serum or plasma calcium mitch urement (mass/volume)Ordered By: John Mims on 03-09-2022 Calcium [Mass/Vol] 9.3 mg/dL 8.2-10.2 [facility] Serum or plasma chloride carlitos surement (moles/volume)Ordered By: John Mims on 03-09-2022 Chloride [Moles/Vol] 106 mmol/L 95-114 [facility] Serum or plasma glucose mitch urement (mass/volume)Ordered By: John Mims on 03-09-2022 Glucose [Mass/Vol] 88 mg/dL 70-100 [facility] Comment on above: ADA recommended refe rence range Random Glucose Reference Range is dependent on time and content of last meal. Glucose of more than 200 mg/dL in a nonstressed, ambulatory subject supports the diagnosis of Diabetes Mellitus. Serum or plasma potassium me asurement (moles/volume)Ordered By: John Mims on 03-09-2022 Potassium [Moles/Vol] 4.6 mmol/L 3.5-5.1 [facility] Serum or plasma sodium measu rement (moles/volume)Ordered By: John Mims on 03-09-2022 Sodium [Moles/Vol] 139 mmol/L 136-146 [facility] Serum or plasma total biliru bin measurement (mass/volume)Ordered By: John Mims on 03-09-2022 Bilirubin [Mass/Vol] 0.9 mg/dL 0.3-1.2 [facility] Serum or plasma total carbon dioxide measurement (moles/volume)Ordered By: John Mims on 03-09-2022 CO2 [Moles/Vol] 23.9 mmol/L 22.0-30.0 [facility] Serum or plasma urea nitroge n measurement (mass/volume)Ordered By: John Mims on 03-09-2022 Urea nitrogen [Mass/Vol] 30 mg/dL 05-12 [facility] TSH DL <= 0.005 mIU/L QnOrde red By: John Mims on 03-09-2022 TSH Qn 1.70 m[IU]/L 0.45-5.33 [facility] Thyroxine (T4) free [Mass/vo lume] in Serum or PlasmaOrdered By: John Mims on 03-09-2022 Free T4 [Mass/Vol] 1.37 ng/dL 0.61-1.12 [facility] US SINGLE QUAD RT UPPERon US SINGLE [...] HARDY LIRA Date: 2022-01-25 16:24 Normal [facility] BNPon 01-11-2022 Natriuretic peptide B (Bld) [Mass/Vol] 520.0 pg/mL Normal <=1,800.0 [facility] Comment on above: Performed By: #### B MP, TSH, BNP #### [facility] [address] [address] [address] Lori Sutton CBC AUTO DIFFon 01-11-2022 BASO # 0.0 103/ul Normal 0.0-0.1 [facility] Comment on above: Performed By: #### C BC ####[facility] [address] [address]Dr. Lori Sutton Basophils/100 WBC (Bld) 0.5 % Normal 0.2-2.0 [facility] Comment on above: Performed By: #### C BC ####[facility] [address] [place], [place] [address]DrMelita Sutton EO # 0.3 103/ul Normal 0.0-0.7 [facility] Comment on above: Performed By: #### C BC ####[facility] [address] [place], [place] [address]Dr. Lori Sutton Eosinophils/100 WBC (Bld) 3.9 % Normal 0.9-7.0 [facility] Comment on above: Performed By: #### C BC ####[facility] [address] [place], [place] [address]Dr. Lori Sutton Erythrocyte distribution width (RBC) [Ratio] 14.4 % Normal 11.0-15.0 [facility] Comment on above: Performed By: #### C BC ####[facility] B[address] [place], [place] [address]Dr. Lori Sutton Hematocrit (Bld) [Volume fraction] 42.0 % Normal 36.0-48.0 [facility] Comment on above: Performed By: #### C BC ####[facility] [address] [place], [place] [address]Dr. Lori Sutton Hemoglobin (Bld) [Mass/Vol] 13.4 g/dL Normal 12.0-16.0 [facility] Comment on above: Performed By: #### C BC ####[facility] [address] [place], [place] [address]DrMelita Sutton IG # 0.04 10e3/ul Critically high 0.00-0.03 [facility] Comment on above: Performed By: #### C BC ####[facility] [address] [place], [place] [address]Dr. Lori Sutton IG % 0.5 % Normal 0.0-0.5 [facility] Comment on above: Performed By: #### C BC ####[facility] [address] [address]DrMelita Sutton LYMPH # 1.7 103/ul Normal 1.2-3.8 [facility] Comment on above: Performed By: #### C BC ####[facility] [address] [address]DrMelita Sutton Lymphocytes/100 WBC (Bld) 21.3 % Normal 20.5-60.0 [facility] Comment on above: Performed By: #### C BC ####[facility] [address] [place], [place] [address]DrMelita Sutton MANUAL DIFF REQ NO Normal [facility] Comment on above: Performed By: #### C BC ####[facility] [address] [place], [place] [address]DrMelita Sutton MCH (RBC) [Entitic mass] 30.6 pg Normal 26.7-34.0 [facility] Comment on above: Performed By: #### C BC ####[facility] [address] [place], [place] [address]DrMelita Sutton MCHC (RBC) [Mass/Vol] 31.9 g/dL Normal 29.9-35.2 [facility] Comment on above: Performed By: #### C BC ####[facility] [address] [place], [place] [address]DrMelita Sutton MCV (RBC) [Entitic vol] 95.9 fL Normal 81.0-99.0 [facility] Comment on above: Performed By: #### C BC ####[facility] [address] [place], [place] [address]DrMelita Sutton MONO # 0.7 103/ul Normal 0.3-0.8 [facility] Comment on above: Performed By: #### C BC ####[facility] [address] [place], [place] [address]DrMelita Sutton Monocytes/100 WBC (Bld) 8.5 % Normal 1.7-12.0 [facility] Comment on above: Performed By: #### C BC ####[facility] [address] [address]DrMelita Sutton NEUT # 5.2 103/ul Normal 1.4-6.5 [facility] Comment on above: Performed By: #### C BC ####[facility] [address] [address]DrMelita Sutton Neutrophils/100 WBC (Bld) 65.3 % Normal 43.0-75.0 [facility] Comment on above: Performed By: #### C BC ####[facility] [address] [address]Dr. Lori Sutton Platelet mean volume (Bld) [Entitic vol] 10.3 fL Normal 9.5-13.5 [facility] Comment on above: Performed By: #### C BC ####[facility] [address] [address]DrMelita Sutton PLT 230 103/ul Normal 150-450 [facility] Comment on above: Performed By: #### C BC ####[facility] [address] [address]Dr. Lori Sutton RBC 4.38 106/ul Normal 4.20-5.40 [facility] Comment on above: Performed By: #### C BC ####[facility] [address] [address]DrMelita Sutton WBC 8.0 103/ul Normal 4.0-11.0 [facility] Comment on above: Performed By: #### C BC ####[facility] [address] [id number]. Lori Sutton PROF CHEM 8 (BAS METB)on Anion gap [Moles/Vol] 14.3 mmol/L Normal [facility] Comment on above: Performed By: #### B MP, TSH, BNP #### [facility] [address] [address] [address] Lori Sutton Calcium [Mass/Vol] 8.8 mg/dL Normal 8.5-10.1 [facility] Comment on above: Performed By: #### B MP, TSH, BNP #### [facility] [address] [place] [address] Dr. Lori Sutton Chloride [Moles/Vol] 103 mmol/L Normal 98-107 [facility] Comment on above: Performed By: #### B MP, TSH, BNP #### [facility] [address] [place] [address] Dr. Lori Sutton CO2 [Moles/Vol] 27.5 mmol/L Normal 21.0-32.0 [facility] Comment on above: Performed By: #### B MP, TSH, BNP #### [facility] [address] [place] [address] Dr. Lori Sutton Creatinine [Mass/Vol] 1.65 mg/dL Critically high 0.55-1.02 [facility] Comment on above: Performed By: #### B MP, TSH, BNP #### [facility] [address] [place] [address] Dr. Lori Sutton EGFR-AF MONEGASQUE 36 mL/min/1.73m2 Critically low >=60 [facility] Comment on above: Performed By: #### B MP, TSH, BNP #### [facility] [address] [place] [address] Dr. Lori Sutton EGFR-NON AF MONEGASQUE 30 mL/min/1.73m2 Critically low >=60 [facility] Comment on above: Performed By: #### B MP, TSH, BNP #### [facility] [address] [place] [address] Dr. Lori Sutton Glucose [Mass/Vol] 88 mg/dL Normal 74-106 [facility] Comment on above: Performed By: #### B MP, TSH, BNP #### [facility] [address] [place] [address] Dr. Lori Sutton Potassium [Moles/Vol] 4.8 mmol/L Normal 3.5-5.1 [facility] Comment on above: Performed By: #### B MP, TSH, BNP #### [facility] [address] [address] [address] Lori Sutton Sodium [Moles/Vol] 140 mmol/L Normal 136-145 [facility] Comment on above: Performed By: #### B MP, TSH, BNP #### [facility] [address] [address] [address] Lori Sutton Urea nitrogen [Mass/Vol] 46.0 mg/dL Critically high 7.0-18.0 [facility] Comment on above: Performed By: #### B MP, TSH, BNP #### [facility] [address] [address] [address] Lori Sutton Urea nitrogen/Creatinine [Mass ratio] 27.9 mg/mg Normal [facility] Comment on above: Performed By: #### B MP, TSH, BNP #### [facility] [address] [place] [address] Dr. Lori Sutton TSHon 01-11-2022 TSH 2.012 uIU/mL Normal 0.358-3.74 0 [facility] Comment on above: Performed By: #### B MP, TSH, BNP #### [facility] [address] [place] [address] Dr. Lori Sutton TSH RANGE SEE BELOW Normal [facility] Comment on above: Result Comment: <0.3 4 UIU/ml HYPERTHYROID 0.34-5.60 UIU/ml EUTHYROID >5.60 UIU/ml HYPOTHYROID Performed By: #### B MP, TSH, BNP #### [facility] [address] [place] [address] Dr. Lori Sutton XR CHEST 2 Von [...] by: MACARENA MEHTA Date: 2022-01-11 15:14 Normal [facility] COVID-19 Positive/NegativeOr dered By: John Mims on 12-30-2021 SARS-CoV-2 (COVID-19) N gene GUILLERMO+probe Ql (Resp) Negative Negative [facility] Comment on above: Testing for SARS-CoV -2 by RT-PCR This test was developed and its performance characteristics determined by [employer] and validated at the [facility]. This test has not been FDA [...] a) No falls within the last year [facility] Etelos DO Work Phone: Tobacco use status CP b) No [facility] Etelos DO Work Phone: Tobacco Screening. Yes [facility] [employer] 250 DO Work Phone: RAD - CT Reporton 10-10-2021 RAD - CT Report [id number]#1.00CD:127 Normal [facility] Tobacco Screening.on 021 Fall risk assessment b) One or more fall s in the last year [facility] Etelos DO Work Phone: Tobacco use status CP b) No [facility] [employer] 250 DO Work Phone: RAD - CT Reporton 07-24-2021 RAD - CT Report [id number]:127 Normal [facility] Consent for Procedure/Surger yon 07-22-2021 Consent for Procedure/Surgery [id number]#1.00CD:127 Normal [facility] Ambulatory Clinical Summaryo n 07-21-2021 Ambulatory Clinical Summary {[id number]}CD: [id number] Normal [facility] Patient Educationon 07-21-20 Patient Education Urology Kidney Stones Kidney stones [...] these instructions at home: Medicines ? Take qnsl-kmx-lsdjpxu and prescription medicines only as told by [...] 01/22/2009 Document Revised: 12/23/2019 Document Reviewed: 12/23/2019 [employer] Patient Education ? 2019 [employer]. [facility] Urology Office/Clinic Noteon 07-21-2021 Urology Office/Clinic Note [...] 07/01/2021. Pt. was seen in consult at [facility]. CT done 06/27/2021 shows left hydronephrosis. 12.5 [...] some point. Follow-up With When Contact Information KARUAN MUIR, JOAO Teran In 6 months 01/19/[address] [place], [place] [id number]- Additional Instructions: KUB Patient Education Kidney Stones, Biqn-cg-Mtes I, Leonor Rucker, personally scribed for Dr. [...] Tobacco Use:. Never Smokeless Tobacco Use:., 07/21/2021 [facility] Comment on above: Result Comment: Elec tronically Signed By: Byron ALFONSO MD\.br\Date and Time Signed: 07/21/21 15:17 EST\.br\Electronically Co-Signed By: Leonor Rucker\.br\Date and Time Co-Signed: 07/21/21 15:12 EST Falls Risk Screeningon 07-06 Fall risk assessment a) No falls within the last year [facility] 250 DO Work Phone: Pathology Noteon 07-06-2021 Pathology Note [id number]#1.00CD:127 [facility] Operative Reporton Operative Report [id number]#1.00CD:127 [facility] RAD - MISCon 07-04-2021 RAD - MISC [id number]#1.00CD:127 [facility] Insurance Correspondence Off iceon 07-01-2021 Insurance Correspondence Office [id number]#1.00CD:127 [facility] Consultation Noteon 06-29-20 Consultation Note [id number]#1.00CD:127 [facility] No Panel Informationon 06-24 20.44\S\20.44 Normal [facility] [address] [place] Work Phone: Comment on above: PERFORMED BY:[address] [address] [address] [place] [id number] MEDICAL DIRECTORVITOR ZARATE M.D. 9.0\S\9.0 Normal 8.2-10.2 [facility] [place] [address] [place] Work Phone: 24.1\S\24.1 Normal 22.0-30.0 [facility] [place] [address] [place] Work Phone: 103\S\103 Normal 95-114 [facility] [place] [address] [place] Work Phone: 4.4\S\4.4 Normal 3.5-5.1 [facility] [place] [address] [place] Work Phone: 138\S\138 Normal 136-146 [facility] [place] [address] [place] Work Phone: 31\S\31 Normal [facility] [place] [address] [place] Work Phone: Comment on above: GFR estimated refere nce range: According to KDOQI guidelines, <60 ml/min/1.73m2 is sufficient to diagnose a patient with chronic kidney disease. 26\S\26 Normal [facility] [place] [address] [place] Work Phone: 1.88\S\1.88 above high threshold 0.44-1.03 [facility] [place] [address] [place] Work Phone: 34\S\34 above high threshold 9-23 [facility] [place] [address] [place] Work Phone: 130\S\130 above high threshold 70-100 [facility] [place] [address] [place] Work Phone: Comment on above: Random Glucose Refer ence Range is dependent on time and content of last meal. Glucose of more than 200 mg/dL in a nonstressed, ambulatory subject supports the diagnosis of Diabetes Mellitus. ADA recommended reference range [facility] [place] [address] [place] Work Phone: No Panel Informationon 06-23 [facility] [place] [address] [place] Work Phone: 24.4\S\24.4 Normal 22.0-30.0 [facility] [place] [address] [place] Work Phone: Comment on above: PERFORMED BY:[facility] [place] [id number] MEDICAL DIRECTORVITOR ZARATE M.D. 104\S\104 Normal 95-114 -[facility] [place] [place] Work Phone: 4.4\S\4.4 Normal 3.5-5.1 -[facility] [address] [place] Work Phone: [phone] 141\S\141 Normal 136-146 -[facility] [address] [place] Work Phone: 21\S\21 Normal -[facility] [address] [place] Work Phone: 21.8\S\21.8 below low threshold 23.0-27.0 -[facility] [address] [place] Work Phone: 7.2\S\7.2 Normal 6.6-9.7 -[facility] [address] [address] [place] Work Phone: 95.4\S\95.4 Normal 95.0-100.0 -[facility] [address] [place] Work Phone: -2.7\S\-2.7 Normal -3.0-3.0 -[facility] [address] [place] Work Phone: 20.8\S\20.8 below low threshold 23.0-29.0 [facility] [address] [address] [place] Work Phone: 76.9\S\76.9 below low threshold 80.0-100.0 -[facility] [place] [address] [place] Work Phone: 32.1\S\32.1 below low threshold 35.0-45.0 [facility] [place] [address] [place] Work Phone: 7.43\S\7.43 Normal 7.35-7.45 [facility] [address] [place] Work Phone: Normal -[facility] [address] [place] Work Phone: Comment on above: Critical Value gustafson d on: 06/23/2021 at 13:35PERFORMED BY:[facility] [place] [place] [id number] MEDICAL DIRECTORVITOR ZARATE M.D. Right Radial Normal -[facility] [address] [place] Work Phone: 3+ above high threshold Negative -[facility] [address] [place] Work Phone: Negative Normal Negative -[facility] [place] [address] [place] Work Phone: Normal Normal Normal -[facility] [address] [place] Work Phone: 30\S\30 above high threshold Negative -[facility] [address] [place] Work Phone: None Seen Normal 0-8 -[facility] [address] [place] Work Phone: Comment on above: PERFORMED BY:[facility] [place] [phone] MEDICAL DIRECTORVITOR ZARATE M.D. 4+ above high threshold Negative -[facility] [address] [place] Work Phone: 0-1 Normal 0-2 -[facility] [address] [place] Work Phone: Innumerable above high threshold 0-4 [facility] [address] [place] Work Phone: Positive above high threshold Negative -[facility] [address] [place] Work Phone: 5.5\S\5.5 Normal 5.0-9.0 [facility] [address] [place] Work Phone: 1.015\S\1.015 Normal 1.001-1.03 0 [facility] [address] [place] Work Phone: Turbid Critically abnormal Clear [facility] [address] [place] Work Phone: Yellow Normal Yellow [facility] [address] [place] Work Phone: [facility] [address] [place] Work Phone: Radiologyon 06-23-2021 Portable XR Chest Views Normal [facility] [address] [place] Work Phone: BASIC METABOLIC PANELon 07-20 Calcium [Mass/Vol] 8.4 mg/dL Low 8.6-10.3 The [facility] Comment on above: Order Comment: No: D o not add to previous draw Pt care Performed By: #### 0 0071 #### [facility] [address] [place] [address], [place] Chloride [Moles/Vol] 105 mmol/L Normal 98-107 [facility] Comment on above: Order Comment: No: D o not add to previous draw Pt care Performed By: #### 0 0071 #### [facility] [address] [place] [address], [place] CO2 [Moles/Vol] 23 mmol/L Normal 21-31 [facility] Comment on above: Order Comment: No: D o not add to previous draw Pt care Performed By: #### 0 0071 #### [facility] [address] [place] [address], [place] Creatinine [Mass/Vol] 1.14 mg/dL Normal 0.60-1.20 [facility] Comment on above: Order Comment: No: D o not add to previous draw Pt care Performed By: #### 0 0071 #### [facility] [address] [place] [address], [place] GFR/1.73 sq M predicted among blacks MDRD (S/P/Bld) [Vol rate/Area] 56 ml/min/1.73sq m Abnormal >60 [facility] Comment on above: Order Comment: No: D o not add to previous draw Pt care Result Comment: Calc ulation may not be valid for patients over 70 years Performed By: #### 0 0071 #### [facility] [address] [place] [address], [place] GFR/1.73 sq M predicted among non-blacks MDRD (S/P/Bld) [Vol rate/Area] 46 ml/min/1.73sq m Abnormal >60 [facility] Comment on above: Order Comment: No: D o not add to previous draw Pt care Result Comment: Calc ulation may not be valid for patients over 70 years Performed By: #### 0 0071 #### [facility] [address] [place] [address], [place] Glucose [Mass/Vol] 151 mg/dL High 70-100 [facility] Comment on above: Order Comment: No: D o not add to previous draw Pt care Performed By: #### 0 0071 #### [facility] [address] [place] [address], [place] Potassium [Moles/Vol] 3.9 mmol/L Normal 3.5-5.1 [facility] Comment on above: Order Comment: No: D o not add to previous draw Pt care Performed By: #### 0 0071 #### [facility] [address] [place] [address], [place] Sodium [Moles/Vol] 139 mmol/L Normal 136-145 [facility] Comment on above: Order Comment: No: D o not add to previous draw Pt care Performed By: #### 0 0071 #### [facility] - [place] [address] [place] [address], [place] Urea nitrogen [Mass/Vol] 14 mg/dL Normal 7-25 The [facility] Comment on above: Order Comment: No: D o not add to previous draw Pt care Performed By: #### 0 0071 #### [place] [address], [facility] CTA CHESTon 07-31-2020 CTA CHEST [facility] Department of Radiology [address] [place] [id number] Patient Name: LESA GOLDEN : 1940 Sex: F Age: Race: White Pt. Location: [id number] Patient Status: D Ordered Date: 07/31/2020 10:25:00 [...] reports Electronically signed: Drew Rios. Transcribed by: [email or web address], User Resident: SANTO LAZO Electronically Signed by: DREW RIOS @ 08/02/2020 09:34 AM I personally read this/these film(s) with this resident Normal The [facility] Comment on above: Order Comment: 12 ho urs post vitamin K administration/pre-procedure warfarin reversal No: Do not add to previous draw PROTHROMBIN TIMEon 0 INR Coag (PPP) [Relative time] 1.10 {INR} Normal 0.91-1.16 The [facility] Comment on above: Order Comment: No: D [...] CHEST 1995;108:231S-246S. Performed By: #### 0 0071, [id number] #### [facility] [address] PT Coag (PPP) [Time] 14.2 s Normal 12.3-14.8 The [facility] Comment on above: Order Comment: No: D o not add to previous draw Result Comment: ALL RESULTS MUST BE INTERPRETED WITH RESPECT TO BLOOD DRAWING ARTIFACT OR DILUTION ERROR OF ANTICOAGULANT AT THE TIME OF SAMPLING. Performed By: #### 0 0071, [id number] #### [facility] [address] UFH HEPARIN ASSAYon 07-31-20 20 UNFRACTIONATED HEPARIN 0.32 IU/mL Normal 0.30-0.70 Th e [facility] Comment on above: Result Comment: Aracelis roxaban and Apixaban will interfere with the anti Xa assay used to monitor UFH and LMWH. Performed By: #### 0 0071, [id number] #### [facility] [address] URINALYSIS REFLEXon 07-31-20 20 Appearance (U) CLOUDY Abnormal CLEAR The [facility] Comment on above: Order Comment: No: D o not add to previous draw Performed By: #### 5 3629, 70999, 63637 #### [facility] [address] [place] [address], [place] Bilirubin [Mass/Vol] Negative Normal NEGATIVE The [facility] Comment on above: Order Comment: No: D o not add to previous draw Performed By: #### 5 3629, 77937, 38387 #### [facility] [address] [place] [address], [place] BLOOD LARGE Abnormal NEGATIVE The [facility] Comment on above: Order Comment: No: D o not add to previous draw Performed By: #### 5 3629, 86716, 26795 #### [facility] [address] [place] [address], [place] Color (U) SABINA Abnormal YELLOW The [facility] Comment on above: Order Comment: No: D o not add to previous draw Performed By: #### 5 3629, 46897, 27949 #### [facility] [address] [place] [address], [place] EPIS MANY Abnormal FEW,OCC,NO NE SEEN The [facility] Comment on above: Order Comment: No: D o not add to previous draw Performed By: #### 5 9, 68066, 62534 #### [facility] [address] [place] [address], [place] Glucose [Mass/Vol] Negative Normal NEGATIVE The [facility] Comment on above: Order Comment: No: D o not add to previous draw Performed By: #### 5 3629, 96052, 81863 #### [facility] [address] [place] [address], [place] KETONE Negative Normal NEGATIVE The [facility] Comment on above: Order Comment: No: D o not add to previous draw Performed By: #### 5 3629, 09273, 47107 #### [facility] [address] [place] [address], [facility] LEUK GEOFFREY MODERATE Abnormal NEGATIVE The [facility] Comment on above: Order Comment: No: D o not add to previous draw Performed By: #### 5 3629, 89864, 55467 #### [facility] [address] [place] [address], [place] MUCUS THREADS FEW Abnormal NONE SEEN The [facility] Comment on above: Order Comment: No: D o not add to previous draw Performed By: #### 5 9, 76603, 98006 #### [facility] [address] [place] [address], [place] Nitrite Ql (U) Positive Abnormal NEGATIVE The [facility] Comment on above: Order Comment: No: D o not add to previous draw Performed By: #### 5 3629, 47257, 25436 #### [facility] [address] [place] [address], [facility] pH (Bld) 5.0 Normal 5.0-8.0 The [facility] Comment on above: Order Comment: No: D o not add to previous draw Performed By: #### 5 3628, 44886, 76572 #### [facility] [address] [place] [id number], [facility] Protein (U) [Mass/Vol] 100 mg/dL Abnormal NEGATIVE Th e [facility] Comment on above: Order Comment: No: D o not add to previous draw Performed By: #### 5 362, 74502, 41174 #### [facility] [address] [place] [address], [place] RBC (U) [#/Vol] /uL Abnormal NONE SEEN The [facility] Comment on above: Order Comment: No: D o not add to previous draw Performed By: #### 5 362, 32116, 53363 #### [facility] [address] [place] [address], [place] SPEC GRAV 1.025 High 1.015-1.02 0 The [facility] Comment on above: Order Comment: No: D o not add to previous draw Performed By: #### 5 3629, 41065, 19736 #### [facility] [address] [place] [address], [facility] WBC UA >100 Abnormal NONE SEEN The [facility] Comment on above: Order Comment: No: D o not add to previous draw Performed By: #### 5 3629, 20743, 00626 #### [facility] [address] [place] [address], [facility] BASIC METABOLIC PANELon 12- Calcium [Mass/Vol] 8.1 mg/dL Low 8.6-10.3 The [facility] Comment on above: Order Comment: No: D o not add to previous draw Performed By: #### 0 0071 #### [facility] [address] [place] [id number], [facility] Chloride [Moles/Vol] 108 mmol/L High 98-107 The [facility] Comment on above: Order Comment: No: D o not add to previous draw Performed By: #### 0 0071 #### [facility] [address] [place] [id number], [facility] CO2 [Moles/Vol] 24 mmol/L Normal 21-31 The [facility] Comment on above: Order Comment: No: D o not add to previous draw Performed By: #### 0 0071 #### [facility] [address] [place] [id number], [facility] Creatinine [Mass/Vol] 0.99 mg/dL Normal 0.60-1.20 The [facility] Comment on above: Order Comment: No: D o not add to previous draw Performed By: #### 0 0071 #### [facility] [address] [place] [id number], [facility] GFR/1.73 sq M predicted among blacks MDRD (S/P/Bld) [Vol rate/Area] mL/min/{1.73_m2} Normal >60 The [facility] Comment on above: Order Comment: No: D o not add to previous draw Result Comment: Calc ulation may not be valid for patients over 70 years Performed By: #### 0 0071 #### [facility] [address] [place] [address], [place] GFR/1.73 sq M predicted among non-blacks MDRD (S/P/Bld) [Vol rate/Area] 54 ml/min/1.73sq m Abnormal >60 The [facility] Comment on above: Order Comment: No: D o not add to previous draw Result Comment: Calc ulation may not be valid for patients over 70 years Performed By: #### 0 0071 #### [facility] [address] [place] [address], [place] Glucose [Mass/Vol] 104 mg/dL High 70-100 The [facility] Comment on above: Order Comment: No: D o not add to previous draw Performed By: #### 0 0071 #### [facility] [address] [place] [address], [place] Potassium [Moles/Vol] 3.5 mmol/L Normal 3.5-5.1 The [facility] Comment on above: Order Comment: No: D o not add to previous draw Performed By: #### 0 0071 #### [facility] [address] [place] [address], [place] Sodium [Moles/Vol] 141 mmol/L Normal 136-145 The [facility] Comment on above: Order Comment: No: D o not add to previous draw Performed By: #### 0 0071 #### [facility] [address] [place] [address], [place] Urea nitrogen [Mass/Vol] 17 mg/dL Normal 7-25 The [facility] Comment on above: Order Comment: No: D o not add to previous draw Performed By: #### 0 0071 #### [facility] [address] [place] [address], [place] CBC COMPLETE BLOOD COUNTon 1 2-11-2020 Erythrocyte distribution width (RBC) [Ratio] 17.3 % High 11.5-15.0 The [facility] Comment on above: Order Comment: 12 ho urs post vitamin K administration/pre-procedure warfarin reversal No: Do not add to previous draw Performed By: #### 5 6101 #### [facility] [address] [place] [address], [facility] Hematocrit (Bld) [Volume fraction] 37.7 % Normal 36.0-45.0 The [facility] Comment on above: Order Comment: 12 ho urs post vitamin K administration/pre-procedure warfarin reversal No: Do not add to previous draw Performed By: #### 5 6101 #### [facility] [address] [place] [address], [facility] Hemoglobin (Bld) [Mass/Vol] 12.0 g/dL Normal 12.0-15.0 The [facility] Comment on above: Order Comment: 12 ho urs post vitamin K administration/pre-procedure warfarin reversal No: Do not add to previous draw Performed By: #### 5 6101 #### [facility] [address] [place] [address], [facility] MCH (RBC) [Entitic mass] 29.0 pg Normal 27.0-33.0 The [facility] Comment on above: Order Comment: 12 ho urs post vitamin K administration/pre-procedure warfarin reversal No: Do not add to previous draw Performed By: #### 5 6101 #### [facility] [address] [place] [address], [facility] MCHC (RBC) [Mass/Vol] 31.8 g/dL Low 32.0-35.0 The [facility] Comment on above: Order Comment: 12 ho urs post vitamin K administration/pre-procedure warfarin reversal No: Do not add to previous draw Performed By: #### 5 6101 #### [facility] [address] [place] [address], [facility] MCV (RBC) [Entitic vol] 91.1 fL Normal 82.0-98.0 The [facility] Comment on above: Order Comment: 12 ho urs post vitamin K administration/pre-procedure warfarin reversal No: Do not add to previous draw Performed By: #### 5 6101 #### [facility] [address] [place] [address], [facility] Nucleated RBC/100 WBC (Bld) [Ratio] 0 % Normal 0-0 The [facility] Comment on above: Order Comment: 12 ho urs post vitamin K administration/pre-procedure warfarin reversal No: Do not add to previous draw Performed By: #### 5 6101 #### [facility] [address] [place] [address], [facility] PLAT CNT 233 10*3/uL Normal 150-400 The [facility] Comment on above: Order Comment: 12 ho urs post vitamin K administration/pre-procedure warfarin reversal No: Do not add to previous draw Performed By: #### 5 6101 #### [facility] [address] [place] [address], [facility] RBC (Bld) [#/Vol] 4.14 10*6/uL Normal 3.80-5.00 The [facility] Comment on above: Order Comment: 12 ho urs post vitamin K administration/pre-procedure warfarin reversal No: Do not add to previous draw Performed By: #### 5 6101 #### [facility] [address] [place] [address], [facility] WBC (Bld) [#/Vol] 9.44 10*3/uL Normal 4.00-10.60 The [facility] Comment on above: Order Comment: 12 ho urs post vitamin K administration/pre-procedure warfarin reversal No: Do not add to previous draw Performed By: #### 5 6101 #### [facility] [address] [place] [id number], [facility] HEMATOCRITon 07-30-2020 Hematocrit (Bld) [Volume fraction] 43.9 % Normal 36.0-45.0 The [facility] Comment on above: Order Comment: No: D o not add to previous draw Performed By: #### 5 3629, 89937, 86448 #### [facility] [address] HEMOGLOBINon 07-30-2020 Hemoglobin (Bld) [Mass/Vol] 13.5 g/dL Normal 12.0-15.0 The [facility] Comment on above: Order Comment: No: D o not add to previous draw Performed By: #### 5 3629, 81863, 86813 #### [facility] [address] [facility] [address] PROTHROMBIN TIMEon 0 INR Coag (PPP) [Relative time] 1.22 {INR} High 0.91-1.16 The [facility] Comment on above: Order Comment: No: D [...] CHEST 1995;108:231S-246S. Performed By: #### 0 0071, 90838 #### [facility] [address] [place] [address], [facility] PT Coag (PPP) [Time] 15.4 s High 12.3-14.8 The [facility] Comment on above: Order Comment: No: D o not add to previous draw Result Comment: ALL RESULTS MUST BE INTERPRETED WITH RESPECT TO BLOOD DRAWING ARTIFACT OR DILUTION ERROR OF ANTICOAGULANT AT THE TIME OF SAMPLING. Performed By: #### 0 0071, 92479 #### [facility] [address] UFH HEPARIN ASSAYon 07-30-20 UNFRACTIONATED HEPARIN 0.52 IU/mL Normal 0.30-0.70 Th e [facility] Comment on above: Result Comment: [place] roxaban and Apixaban will interfere with the anti Xa assay used to monitor UFH and LMWH. Performed By: #### 0 0071, 47193 #### [facility] [address] [facility] UNFRACTIONATED HEPARIN 0.45 IU/mL Normal 0.30-0.70 Th e [facility] Comment on above: Result Comment: [place] roxaban and Apixaban will interfere with the anti Xa assay used to monitor UFH and LMWH. Performed By: #### 0 0071, 10508 #### [facility] [address] APTTon 07-29-2020 aPTT Coag (Bld) [Time] s Critically high 25.0-35. 0 The [facility] Comment on above: Result Comment: ALL RESULTS [...] RN @0210 Performed By: #### 0 0071, 51106 #### [facility] [address] [place] [address], [facility] BASIC METABOLIC PANELon - Calcium [Mass/Vol] 7.4 mg/dL Low 8.6-10.3 The [facility] Comment on above: Order Comment: No: D o not add to previous draw Performed By: #### 0 0071, 46931 #### [facility] [address] [place] [address], [place] Chloride [Moles/Vol] 101 mmol/L Normal 98-107 The [facility] Comment on above: Order Comment: No: D o not add to previous draw Performed By: #### 0 0071, 98465 #### [facility] [address] [place] [address], [place] CO2 [Moles/Vol] 24 mmol/L Normal 21-31 The [facility] Comment on above: Order Comment: No: D o not add to previous draw Performed By: #### 0 0071, 20875 #### [facility] [address] [place] [address], [place] Creatinine [Mass/Vol] 1.02 mg/dL Normal 0.60-1.20 The [facility] Comment on above: Order Comment: No: D o not add to previous draw Performed By: #### 0 0071, 72614 #### [facility] [address] [place] [address], [place] GFR/1.73 sq M predicted among blacks MDRD (S/P/Bld) [Vol rate/Area] mL/min/{1.73_m2} Normal >60 The [facility] Comment on above: Order Comment: No: D o not add to previous draw Result Comment: Calc ulation may not be valid for patients over 70 years Performed By: #### 0 0071, 94964 #### [facility] [address] [place] [address], [facility] GFR/1.73 sq M predicted among non-blacks MDRD (S/P/Bld) [Vol rate/Area] 53 ml/min/1.73sq m Abnormal >60 The [facility] Comment on above: Order Comment: No: D o not add to previous draw Result Comment: Calc ulation may not be valid for patients over 70 years Performed By: #### 0 0071, 20724 #### [facility] [address] [facility] [place] [address], [facility] Glucose [Mass/Vol] 314 mg/dL High 70-100 The [facility] Comment on above: Order Comment: No: D o not add to previous draw Performed By: #### 0 0071, 50893 #### [facility] [address] [facility] [address], [facility] Potassium [Moles/Vol] 3.1 mmol/L Low 3.5-5.1 The [facility] Comment on above: Order Comment: No: D o not add to previous draw Performed By: #### 0 0071, 11785 #### [facility] [address] [facility] [place] [address], [facility] Sodium [Moles/Vol] 139 mmol/L Normal 136-145 The [facility] Comment on above: Order Comment: No: D o not add to previous draw Performed By: #### 0 0071, 98363 #### [facility] [address] [place] [address], [facility] Urea nitrogen [Mass/Vol] 15 mg/dL Normal 7-25 The [facility] Comment on above: Order Comment: No: D o not add to previous draw Performed By: #### 0 0071, 51175 #### [facility] [address] [facility] [address], [facility] MAGNESIUM BLOODon 07-29-2020 Magnesium [Mass/Vol] 1.5 mg/dL Low 1.9-2.7 The [facility] Comment on above: Order Comment: No: D o not add to previous draw Performed By: #### 0 0071, 31978 #### [facility] [address] [place] [address], [facility] PORTABLE CHEST 1 VIEWon 07-20 PORTABLE CHEST 1 VIEW [facility] Department of Radiology [address] [place], [place] [id number] Patient Name: LESA GOLDEN : 1940 Sex: F Age: Race: White Pt. Location: [id number] Patient Status: I Ordered Date: 07/29/2020 8:25:00 [...] atelectasis. Electronically signed: Emmanuel Armas. Transcribed by: [email or web address], User Resident: Electronically Signed by: EMMANUEL ARMAS @ 07/29/2020 09:41 AM Normal The [facility] Comment on above: Order Comment: 12 ho urs post vitamin K administration/pre-procedure warfarin reversal No: Do not add to previous draw PROTHROMBIN TIMEon 0 INR Coag (PPP) [Relative time] 1.45 {INR} High 0.91-1.16 The [facility] Comment on above: Order Comment: No: D [...] CHEST 1995;108:231S-246S. Performed By: #### 0 0071, 84406 #### [facility] [address] [place] [address], [facility] PT Coag (PPP) [Time] 17.7 s High 12.3-14.8 The [facility] Comment on above: Order Comment: No: D o not add to previous draw Result Comment: ALL RESULTS MUST BE INTERPRETED WITH RESPECT TO BLOOD DRAWING ARTIFACT OR DILUTION ERROR OF ANTICOAGULANT AT THE TIME OF SAMPLING. Performed By: #### 0 0071, 48271 #### [facility] [address] [place] [address], [facility] UFH HEPARIN ASSAYon 12-10-20 20 UNFRACTIONATED HEPARIN >1.00 Critically high 0.30-0.7 0 The [facility] Comment on above: Order Comment: 12 ho urs post vitamin K administration/pre-procedure warfarin reversal No: Do not add to previous draw Result Comment: [place] roxaban and Apixaban will interfere with the anti Xa assay used to monitor UFH and LMWH. UFH=1.22 RESULTS CHECKED AND CALLED. ACCURATELY READ BACK BY SAEID RING RN @0210 Performed By: #### 5 6101 #### [facility] [address] [place] [address], [facility] UNFRACTIONATED HEPARIN 0.78 IU/mL High 0.30-0.70 Th e [facility] Comment on above: Result Comment: Aracelis roxaban and Apixaban will interfere with the anti Xa assay used to monitor UFH and LMWH. Performed By: #### 0 0071, 66632 #### [facility] [address] [place] [address], [place] UNFRACTIONATED HEPARIN 0.89 IU/mL High 0.30-0.70 Th e [facility] Comment on above: Result Comment: Aracelis roxaban and Apixaban will interfere with the anti Xa assay used to monitor UFH and LMWH. Performed By: #### 0 0071, 03813 #### [facility] [address] [place] [address], [facility] BASIC METABOLIC PANELon 12-0 9-2020 Calcium [Mass/Vol] 8.5 mg/dL Low 8.6-10.3 The [facility] Comment on above: Order Comment: No: D o not add to previous draw Performed By: #### 0 0071 #### [facility] [address] [place] [address], [facility] Chloride [Moles/Vol] 108 mmol/L High 98-107 The [facility] Comment on above: Order Comment: No: D o not add to previous draw Performed By: #### 0 0071 #### [facility] [address] [place] [address], [place] CO2 [Moles/Vol] 24 mmol/L Normal 21-31 The [facility] Comment on above: Order Comment: No: D o not add to previous draw Performed By: #### 0 0071 #### [facility] [address] [place] [address], [place] Creatinine [Mass/Vol] 1.03 mg/dL Normal 0.60-1.20 The [facility] Comment on above: Order Comment: No: D o not add to previous draw Performed By: #### 0 0071 #### [facility] [address] [place] [address], [facility] GFR/1.73 sq M predicted among blacks MDRD (S/P/Bld) [Vol rate/Area] mL/min/{1.73_m2} Normal >60 The [facility] Comment on above: Order Comment: No: D o not add to previous draw Result Comment: Calc ulation may not be valid for patients over 70 years Performed By: #### 0 0071 #### [facility] [address] [place] [address], [facility] GFR/1.73 sq M predicted among non-blacks MDRD (S/P/Bld) [Vol rate/Area] 52 ml/min/1.73sq m Abnormal >60 The [facility] Comment on above: Order Comment: No: D o not add to previous draw Result Comment: Calc ulation may not be valid for patients over 70 years Performed By: #### 0 0071 #### [facility] [address] [facility] [place] [address], [facility] Glucose [Mass/Vol] 120 mg/dL High 70-100 The [facility] Comment on above: Order Comment: No: D o not add to previous draw Performed By: #### 0 0071 #### [facility] [facility] [address] [place] [address], [facility] Potassium [Moles/Vol] 3.7 mmol/L Normal 3.5-5.1 The [facility] Comment on above: Order Comment: No: D o not add to previous draw Performed By: #### 0 0071 #### [facility] [address] [place] [address], [place] Sodium [Moles/Vol] 141 mmol/L Normal 136-145 The [facility] Comment on above: Order Comment: No: D o not add to previous draw Performed By: #### 0 0071 #### [facility] [address] [place] [address], [facility] Urea nitrogen [Mass/Vol] 24 mg/dL Normal 7-25 The [facility] Comment on above: Order Comment: No: D o not add to previous draw Performed By: #### 0 0071 #### [facility] [address] CBC COMPLETE BLOOD COUNTon 09-28-2019 Erythrocyte distribution width (RBC) [Ratio] 16.9 % High 11.5-15.0 The [facility] Comment on above: Order Comment: 12 ho urs post vitamin K administration/pre-procedure warfarin reversal No: Do not add to previous draw Performed By: #### 5 [id number] #### [facility] [address] [facility]. [address] Hematocrit (Bld) [Volume fraction] 40.8 % Normal 36.0-45.0 The [facility] Comment on above: Order Comment: 12 ho urs post vitamin K administration/pre-procedure warfarin reversal No: Do not add to previous draw Performed By: #### 5 [id number] #### [facility] [address] [facility] [address] Hemoglobin (Bld) [Mass/Vol] 12.6 g/dL Normal 12.0-15.0 The [facility] Comment on above: Order Comment: 12 ho urs post vitamin K administration/pre-procedure warfarin reversal No: Do not add to previous draw Performed By: #### 5 [id number] #### [facility] [address] [place] [address], [facility] MCH (RBC) [Entitic mass] 28.5 pg Normal 27.0-33.0 The [facility] Comment on above: Order Comment: 12 ho urs post vitamin K administration/pre-procedure warfarin reversal No: Do not add to previous draw Performed By: #### 5 [id number] #### [facility] [address] MCHC (RBC) [Mass/Vol] 30.9 g/dL Low 32.0-35.0 The [facility] Comment on above: Order Comment: 12 ho urs post vitamin K administration/pre-procedure warfarin reversal No: Do not add to previous draw Performed By: #### 5 [id number] #### [facility] [address] [place] [address], [facility] MCV (RBC) [Entitic vol] 92.3 fL Normal 82.0-98.0 The [facility] Comment on above: Order Comment: 12 ho urs post vitamin K administration/pre-procedure warfarin reversal No: Do not add to previous draw Performed By: #### 5 [id number] #### [facility] [address] [place] [address], [facility] Nucleated RBC/100 WBC (Bld) [Ratio] 1 % High 0-0 The [facility] Comment on above: Order Comment: 12 ho urs post vitamin K administration/pre-procedure warfarin reversal No: Do not add to previous draw Performed By: #### 5 [id number] #### [facility] [address] [place] [address], [facility] PLAT CNT 245 10*3/uL Normal 150-400 The [facility] Comment on above: Order Comment: 12 ho urs post vitamin K administration/pre-procedure warfarin reversal No: Do not add to previous draw Performed By: #### 5 [id number] #### [facility] [address] [place] [address], [facility] RBC (Bld) [#/Vol] 4.42 10*6/uL Normal 3.80-5.00 The [facility] Comment on above: Order Comment: 12 ho urs post vitamin K administration/pre-procedure warfarin reversal No: Do not add to previous draw Performed By: #### 5 [id number] #### [facility] [address] [place] [id number], [facility] WBC (Bld) [#/Vol] 9.82 10*3/uL Normal 4.00-10.60 The [facility] Comment on above: Order Comment: 12 ho urs post vitamin K administration/pre-procedure warfarin reversal No: Do not add to previous draw Performed By: #### 5 [id number] #### [address] BRAIN WO CONTRASTon 07-28 CT BRAIN WO CONTRAST [facility] Department of Radiology [address] [place] [id number] Patient Name: LESA GOLDEN : 1940 Sex: F Age: Race: White Pt. Location: [id number] Patient Status: I Ordered Date: 07/28/2020 4:35:00 PM Completed Date: 07/28/2020 04:43 PM Requesting Provider: ABHILASH GO Attending Provider: JELANI SORIA Report Copy To: Signs & Symptoms: stroke alert in label drier post wilmer History: stroke alert in label drier post wilmer Comments: stroke alert in label drier post wilmer Exam: CT BRAIN WO CONTRAST CT BRAIN WO CONTRAST 07/28/2020 4:43 PM CLINICAL INDICATIONS: stroke alert in label drier post wil[place] TECHNOLOGIST COMMENTS: left sided weakness QUESTION FOR THE RADIOLOGIST: stroke alert in label drier post wilmer PROTOCOL: Axial CT images of [...] findings. Electronically signed: Asia Javier. Transcribed by: [email or web address], User Resident: Electronically Signed by: ASIA JAVIER @ 07/28/2020 04:48 PM Normal The [facility] Comment on above: Order Comment: 12 ho urs post vitamin K administration/pre-procedure warfarin reversal No: Do not add to previous draw CTA HEADon 07-28-2020 CTA HEAD [facility] Department of Radiology [address] [place] [phone] Patient Name: LESA GOLDEN : 1940 Sex: F Age: Race: White Pt. Location: [id number] Patient Status: I Ordered Date: 07/28/2020 4:35:00 PM Completed Date: 07/28/2020 05:11 PM Requesting Provider: ABHILASH GO Attending Provider: JELANI SORIA Report Copy To: Signs & Symptoms: stroke alert in label drier post wilmer History: stroke alert in label drier post wilmer Comments: stroke alert in label drier post wilmer Exam: CTA HEAD CTA HEAD 07/28/2020 5:11 PM CLINICAL INDICATIONS: stroke alert in label drier post wilmer TECHNOLOGIST COMMENTS: post wilmer stroke alert weakness QUESTION FOR THE RADIOLOGIST: stroke alert in label drier post wilmer PROTOCOL: Axial CT angiography images [...] occlusion. Electronically signed: Asia Javier. Transcribed by: [email or web address], User Resident: Electronically Signed by: ASIA JAVIER @ 07/28/2020 05:16 PM Normal The [facility] Comment on above: Order Comment: No: D o not add to previous draw CTA NECKon 07-28-2020 CTA NECK [facility] Department of Radiology [address] [place] [phone] Patient Name: LESA GOLDEN : 1940 Sex: F Age: Race: White Pt. Location: [address] [place] [address] Patient Status: I Ordered Date: 07/28/2020 4:35:00 PM Completed Date: 07/28/2020 05:11 PM Requesting Provider: ABHILASH GO Attending Provider: JELANI SORIA Report Copy To: Signs & Symptoms: stroke alert in label drier post wilmer History: stroke alert in label drier post wilmer Comments: stroke alert in label drier post wilmer Exam: CTA NECK CTA NECK 07/28/2020 5:11 PM CLINICAL INDICATIONS: stroke alert in label drier post wil[place] TECHNOLOGIST COMMENTS: post wilmer stroke alert weakness QUESTION FOR THE RADIOLOGIST: stroke alert in label drier post wilmer PROTOCOL: Axial CT angiography images were obtained with IV contrast. CONTRAST: TECHNIQUE: Multi-detector CT angiography axial slices of the neck were obtained during intravenous administration of IV contrast material. Sagittal, coronal, and 3-D reconstructions were performed and viewed on a separate workstation. The [place] Symptomatic Carotid Endarterectomy Trial (NASCET) method for [...] achievable Electronically signed: Asia Javier. Transcribed by: [email or web address], User Resident: Electronically Signed by: ASIA JAVIER @ 07/28/2020 05:19 PM Normal The [facility] Comment on above: Order Comment: No: D o not add to previous draw Cardiovascular Lab Reporton 07-28-2020 Cardiovascular Lab Report [facility] Patient Name: [facility] Maggy MR #: [id number] Department of Physician: Alfredo Ring M.D. Division of Service Date: 07/28/2020 Cardiology Birthdate: 1940 Adult Cardiovascular Room #: 3AB [id number] [place] [address] Cardiovascular Laboratory Report PROCEDURE PERFORMED: Transesophageal echocardiogram and cardioversion. INDICATION: Atrial fibrillation. FELLOW: Hiwot Owens M.D. PROCEDURE IN DETAIL: An informed consent was obtained from the patient after explaining indications, risks and benefits, and alternatives. The patient understood and agreed and signed the consent form. The patient was brought to the label drier and transesophageal echocardiogram was performed under conscious [...] Owens MD Date Trans: 07/28/2020 04:12 P/boaz [id number] cc: Chester العلي D.O. [address] [place] [phone] [place] [facility] PROTHROMBIN TIMEon 0 INR Coag (PPP) [Relative time] 1.85 {INR} High 0.91-1.16 The [facility] Comment on above: Order Comment: 12 ho [...] 1995;108:231S-246S. Performed By: #### 5 [id number] #### [facility] [address] [place] [address], [facility] INR Coag (PPP) [Relative time] 1.67 {INR} High 0.91-1.16 The [facility] Comment on above: Order Comment: No: D [...] CHEST 1995;108:231S-246S. Performed By: #### 0 0071, [id number] #### [facility] [address] [facility] [address], [facility] PT Coag (PPP) [Time] 21.4 s High 12.3-14.8 The [facility] Comment on above: Order Comment: 12 ho urs post vitamin K administration/pre-procedure warfarin reversal No: Do not add to previous draw Result Comment: ALL RESULTS MUST BE INTERPRETED WITH RESPECT TO BLOOD DRAWING ARTIFACT OR DILUTION ERROR OF ANTICOAGULANT AT THE TIME OF SAMPLING. Performed By: #### 5 [id number] #### [facility] [address] [place] [address], [facility] PT Coag (PPP) [Time] 19.7 s High 12.3-14.8 The [facility] Comment on above: Order Comment: No: D o not add to previous draw Result Comment: ALL RESULTS MUST BE INTERPRETED WITH RESPECT TO BLOOD DRAWING ARTIFACT OR DILUTION ERROR OF ANTICOAGULANT AT THE TIME OF SAMPLING. Performed By: #### 0 0071, [id number] #### [facility] [address] [facility] [facility] [address] UFH HEPARIN ASSAYon 07-28-20 20 UNFRACTIONATED HEPARIN 0.38 IU/mL Normal 0.30-0.70 Th e [facility] Comment on above: Result Comment: [place] roxaban and Apixaban will interfere with the anti Xa assay used to monitor UFH and LMWH. Performed By: #### 0 0071, 24757 #### [facility] [address] UNFRACTIONATED HEPARIN >1.00 Critically high 0.30-0.7 0 The [facility] Comment on above: Result Comment: Aracelis roxaban and Apixaban will interfere with the anti Xa assay used to monitor UFH and LMWH. Results called. Accurately read back by Khushbu Shetty RN at 1415. Patient given a bolus of heparin prior to draw, causing elevated heparin levels Performed By: #### 5 6101 #### [facility] [address] [facility] [address] APTTon 07-27-2020 aPTT Coag (Bld) [Time] 47.4 s High 25.0-35.0 Th e [facility] Comment on above: Result Comment: ALL RESULTS [...] PURPOSE. Performed By: #### 5 6101 #### [facility] [address] [place] [address], [facility] aPTT Coag (Bld) [Time] 39.6 s High 25.0-35.0 Th e [facility] Comment on above: Order Comment: No: D [...] THIS PURPOSE. Performed By: #### 5 3629, 30956, 64856 #### [facility] [address] [place] [address], [facility] LIPID PROFILEon 07-27-2020 Cholesterol [Mass/Vol] 173 mg/dL Normal 120-200 Th e [facility] Comment on above: Result Comment: CHOL ESTEROL REFERENCE RANGE: 20 YEARS AND OLDER CARDIOVASCULAR RISK Less than 200 mg/dl Low Risk 200 to 239 mg/dl Borderline Risk 240 mg/dl and greater High Risk Performed By: #### 5 3629, 92254, 48395 #### [facility] [address] [facility] [place] [address], [facility] Cholesterol in HDL [Mass/Vol] 33 mg/dL Normal 23-92 The [facility] Comment on above: Result Comment: Slig ht variation in normal range could be due to gender and/or age. HDL CHOLESTEROL REFERENCE RANGE: 20 years and older Cardiovascular Risk > or =60 mg/dL Desirable 40 TO 59 mg/dL Low Risk <40 mg/dL High Risk Performed By: #### 5 3629, 27191, 03354 #### [facility] [address] [facility] [place] [address], [facility] Cholesterol in LDL [Mass/Vol] 98 mg/dL Normal 0-130 The [facility] Comment on above: Result Comment: LDL IS A CALCULATION LDL IS ONLY VALID IF THE TRIG IS LESS THAN 400. Performed By: #### 5 3629, 39924, 27007 #### [facility] [address] [place] [address], [facility] Cholesterol.total/Chol esterol in HDL [Mass ratio] 5.2 {ratio} High 0.0-4.5 The [facility] Comment on above: Performed By: #### 5 3629, 89086, 27440 #### [facility] [address] [place] [address], [facility] NON-HDL CHOLESTEROL 140 mg/dL Normal [facility] Comment on above: Performed By: #### 5 3629, 18845, 07994 #### [facility] [address] Triglyceride [Mass/Vol] 210 mg/dL High 40-149 The [facility] Comment on above: Result Comment: TRIG LYCERIDE REFERENCE RANGE: 20 YEARS AND OLDER CARDIOVASCULAR RISK LESS THAN 150 mg/dl LOW RISK 150 TO 199 mg/dl BORDERLINE RISK 200 mg/dl AND GREATER HIGH RISK Performed By: #### 5 3629, 99111, 86102 #### [facility] [address] VLDL CHOL 42 mg/dL High 0-40 The [facility] Comment on above: Performed By: #### 5 3629, 19714, 64917 #### [facility] [address] [facility] PROTHROMBIN TIMEon 07-27- 0 INR Coag (PPP) [Relative time] 3.07 {INR} High 0.91-1.16 [facility] Comment on above: Order Comment: 12 ho [...] 1995;108:231S-246S. Performed By: #### 5 6101 #### [facility] [address] [place] [address], [facility] INR Coag (PPP) [Relative time] 2.07 {INR} High 0.91-1.16 The [facility] Comment on above: Result Comment: ACCC P [...] CHEST 1995;108:231S-246S. Performed By: #### 5 3629, 09626, 78121 #### [facility] [address] [place] [address], [place] PT Coag (PPP) [Time] 32.0 s High 12.3-14.8 The [facility] Comment on above: Order Comment: 12 ho urs post vitamin K administration/pre-procedure warfarin reversal No: Do not add to previous draw Result Comment: ALL RESULTS MUST BE INTERPRETED WITH RESPECT TO BLOOD DRAWING ARTIFACT OR DILUTION ERROR OF ANTICOAGULANT AT THE TIME OF SAMPLING. Performed By: #### 5 6101 #### [facility] [address] [place] [address], [place] PT Coag (PPP) [Time] 23.4 s High 12.3-14.8 The [facility] Comment on above: Result Comment: ALL RESULTS MUST BE INTERPRETED WITH RESPECT TO BLOOD DRAWING ARTIFACT OR DILUTION ERROR OF ANTICOAGULANT AT THE TIME OF SAMPLING. Performed By: #### 5 3629, 27403, 47833 #### [facility] [address] TROPONIN-Ion 07-27-2020 Troponin I.cardiac [Mass/Vol] 0.01 ng/mL Normal 0.00-0.04 The [facility] Comment on above: Order Comment: No: D o not add to previous draw Result Comment: REFE RENCE RANGES: 0.00 - 0.04 ng/ml NORMAL 0.05 - 0.50 ng/ml INDETERMINATE > 0.50 ng/ml CONSISTENT WITH AN M.I. Performed By: #### 5 3629, 54903, 58155 #### [facility] [address] UFH HEPARIN ASSAYon 07-27-20 20 UNFRACTIONATED HEPARIN <0.10 Critically low 0.30-0.70 The [facility] Comment on above: Result Comment: [place] roxaban and Apixaban will interfere with the anti Xa assay used to monitor UFH and LMWH. RESULTS CHECKED AND CALLED. ACCURATELY READ BACK BY Saeid Lees RN at 2121. Performed By: #### 5 3629, 87996, 45812 #### [facility] [address] APTTon 07-26-2020 aPTT Coag (Bld) [Time] 44.0 s High 25.0-35.0 Th e [facility] Comment on above: Order Comment: No: D [...] THIS PURPOSE. Performed By: #### 5 3629, 28074, 96691 #### [facility] [address] [place] [address], [place] BASIC METABOLIC PANELon 12-0 Calcium [Mass/Vol] 8.4 mg/dL Low 8.6-10.3 The [facility] Comment on above: Order Comment: No: D o not add to previous draw Performed By: #### 5 3629, 23195, 44964 #### [facility] [address] [place] [address], [place] Chloride [Moles/Vol] 107 mmol/L Normal 98-107 The [facility] Comment on above: Order Comment: No: D o not add to previous draw Performed By: #### 5 3629, 20337, 09937 #### [facility] [address] [place] [address], [place] CO2 [Moles/Vol] 23 mmol/L Normal 21-31 The [facility] Comment on above: Order Comment: No: D o not add to previous draw Performed By: #### 5 3629, 41053, 66773 #### [facility] [address] [place] [address], [place] Creatinine [Mass/Vol] 1.00 mg/dL Normal 0.60-1.20 The [facility] Comment on above: Order Comment: No: D o not add to previous draw Performed By: #### 5 3629, 41418, 40483 #### [facility] [address] [place] [address], [place] GFR/1.73 sq M predicted among blacks MDRD (S/P/Bld) [Vol rate/Area] mL/min/{1.73_m2} Normal >60 The [facility] Comment on above: Order Comment: No: D o not add to previous draw Result Comment: Calc ulation may not be valid for patients over 70 years Performed By: #### 5 3629, 11219, 54891 #### [facility] [address] [place] [address], [place] GFR/1.73 sq M predicted among non-blacks MDRD (S/P/Bld) [Vol rate/Area] 53 ml/min/1.73sq m Abnormal >60 The [facility] Comment on above: Order Comment: No: D o not add to previous draw Result Comment: Calc ulation may not be valid for patients over 70 years Performed By: #### 5 3629, 72431, 07176 #### [facility] [address] [place] [address], [place] Glucose [Mass/Vol] 144 mg/dL High 70-100 The [facility] Comment on above: Order Comment: No: D o not add to previous draw Performed By: #### 5 3629, 95585, 29388 #### [facility] [address] [place] [address], [place] Potassium [Moles/Vol] 3.9 mmol/L Normal 3.5-5.1 The [facility] Comment on above: Order Comment: No: D o not add to previous draw Performed By: #### 5 3629, 28429, 37555 #### [facility] [address] [place] [address], [place] Sodium [Moles/Vol] 139 mmol/L Normal 136-145 The [facility] Comment on above: Order Comment: No: D o not add to previous draw Performed By: #### 5 3629, 11128, 88197 #### [facility] [address] [place] [address], [place] Urea nitrogen [Mass/Vol] 24 mg/dL Normal 7-25 The [facility] Comment on above: Order Comment: No: D o not add to previous draw Performed By: #### 5 3629, 77779, 61557 #### [facility] [address] [place] [address], [place] BNP (B-TYPE NATRIURETIC PEPT BALTA)on 07-26-2020 Natriuretic peptide B (Bld) [Mass/Vol] 259 pg/mL High 0-100 The [facility] Comment on above: Order Comment: No: D o not add to previous draw Result Comment: Give n the appropriate clinical setting a BNP result of >100 pg/mL indicates congestive heart failure. Performed By: #### 5 3629, 00270, 95235 #### [facility] [address] CBC W/DIFFon 07-26-2020 ABS BASOPHILS 0.1 10*3/uL Normal 0.0-0.2 The [facility] Comment on above: Order Comment: 12 ho urs post vitamin K administration/pre-procedure warfarin reversal No: Do not add to previous draw Performed By: #### 5 6101 #### [facility] [address] ABS IMM GRANS 0.3 10*3/uL High 0.0-0.2 The [facility] Comment on above: Order Comment: 12 ho urs post vitamin K administration/pre-procedure warfarin reversal No: Do not add to previous draw Performed By: #### 5 6101 #### [facility] [address] ABS NEUTROPHILS 5.9 10*3/uL Normal 1.6-7.6 The [facility] Comment on above: Order Comment: 12 ho urs post vitamin K administration/pre-procedure warfarin reversal No: Do not add to previous draw Performed By: #### 5 6101 #### [facility] [address] Basophils/100 WBC (Bld) 0.8 % Normal 0.0-1.0 The [facility] Comment on above: Order Comment: 12 ho urs post vitamin K administration/pre-procedure warfarin reversal No: Do not add to previous draw Performed By: #### 5 6101 #### [facility] [address] [place] [address], [facility] Eosinophils (Bld) [#/Vol] 0.4 10*3/uL Normal 0.0-0.5 The [facility] Comment on above: Order Comment: 12 ho urs post vitamin K administration/pre-procedure warfarin reversal No: Do not add to previous draw Performed By: #### 5 6101 #### [facility] [address] [place] [address], [facility] Eosinophils/100 WBC (Bld) 3.8 % Normal 0.0-6.0 The [facility] Comment on above: Order Comment: 12 ho urs post vitamin K administration/pre-procedure warfarin reversal No: Do not add to previous draw Performed By: #### 5 6101 #### [facility] [address] [place] [address], [facility] Erythrocyte distribution width (RBC) [Ratio] 16.9 % High 11.5-15.0 The [facility] Comment on above: Order Comment: 12 ho urs post vitamin K administration/pre-procedure warfarin reversal No: Do not add to previous draw Performed By: #### 5 6101 #### [facility] [address] [place] [address], [facility] Hematocrit (Bld) [Volume fraction] 43.8 % Normal 36.0-45.0 The [facility] Comment on above: Order Comment: 12 ho urs post vitamin K administration/pre-procedure warfarin reversal No: Do not add to previous draw Performed By: #### 5 [id number] #### [facility] [address] [facility] [place] [address], [facility] Hemoglobin (Bld) [Mass/Vol] 13.7 g/dL Normal 12.0-15.0 [facility] [facility] Comment on above: Order Comment: 12 ho urs post vitamin K administration/pre-procedure warfarin reversal No: Do not add to previous draw Performed By: #### 5 [id number] #### [facility] [address] [place] [address], [facility] IMMATURE GRANS 3.6 % High 0.0-1.0 The [facility] Comment on above: Order Comment: 12 ho urs post vitamin K administration/pre-procedure warfarin reversal No: Do not add to previous draw Performed By: #### 5 [id number] #### [facility] [address] [place] [address], [facility] Lymphocytes (Bld) [#/Vol] 2.1 10*3/uL Normal 1.2-4.0 The [facility] Comment on above: Order Comment: 12 ho urs post vitamin K administration/pre-procedure warfarin reversal No: Do not add to previous draw Performed By: #### 5 [id number] #### [facility] [address] [place] [address], [facility] Lymphocytes/100 WBC (Bld) 22.0 % Normal 20.0-45.0 The [facility] Comment on above: Order Comment: 12 ho urs post vitamin K administration/pre-procedure warfarin reversal No: Do not add to previous draw Performed By: #### 5 [id number] #### [facility] [address] [place] [address], [facility] MCH (RBC) [Entitic mass] 29.0 pg Normal 27.0-33.0 The [facility] Comment on above: Order Comment: 12 ho urs post vitamin K administration/pre-procedure warfarin reversal No: Do not add to previous draw Performed By: #### 5 [id number] #### [facility] [address] [place] [id number], [facility] MCHC (RBC) [Mass/Vol] 31.3 g/dL Low 32.0-35.0 The [facility] Comment on above: Order Comment: 12 ho urs post vitamin K administration/pre-procedure warfarin reversal No: Do not add to previous draw Performed By: #### 5 [id number] #### [facility] [address] [place] [address], [facility] MCV (RBC) [Entitic vol] 92.6 fL Normal 82.0-98.0 The [facility] Comment on above: Order Comment: 12 ho urs post vitamin K administration/pre-procedure warfarin reversal No: Do not add to previous draw Performed By: #### 5 [id number] #### [facility] [address] [place] [address], [place] Monocytes (Bld) [#/Vol] 0.7 10*3/uL Normal 0.1-1.0 The [facility] Comment on above: Order Comment: 12 ho urs post vitamin K administration/pre-procedure warfarin reversal No: Do not add to previous draw Performed By: #### 5 [id number] #### [facility] [address] [place] [address], [facility] MONOS 7.5 % Normal 5.0-12.0 The [facility] Comment on above: Order Comment: 12 ho urs post vitamin K administration/pre-procedure warfarin reversal No: Do not add to previous draw Performed By: #### 5 [id number] #### [facility] [address] [place] [address], [facility] Neutrophils/100 WBC (Bld) 62.3 % Normal 40.0-72.0 The [facility] Comment on above: Order Comment: 12 ho urs post vitamin K administration/pre-procedure warfarin reversal No: Do not add to previous draw Performed By: #### 5 [id number] #### [facility] [address] [place] [address], [facility] Nucleated RBC/100 WBC (Bld) [Ratio] 1 % High 0-0 The [facility] Comment on above: Order Comment: 12 ho urs post vitamin K administration/pre-procedure warfarin reversal No: Do not add to previous draw Performed By: #### 5 [id number] #### [facility] [address] [facility] [address], [facility] PLAT CNT 296 10*3/uL Normal 150-400 The [facility] Comment on above: Order Comment: 12 ho urs post vitamin K administration/pre-procedure warfarin reversal No: Do not add to previous draw Performed By: #### 5 [id number] #### [facility] [address] [place] [address], [facility] RBC (Bld) [#/Vol] 4.73 10*6/uL Normal 3.80-5.00 The [facility] Comment on above: Order Comment: 12 ho urs post vitamin K administration/pre-procedure warfarin reversal No: Do not add to previous draw Performed By: #### 5 [id number] #### [facility] [address] [place] [address], [facility] WBC (Bld) [#/Vol] 9.48 10*3/uL Normal 4.00-10.60 The [facility] Comment on above: Order Comment: 12 ho urs post vitamin K administration/pre-procedure warfarin reversal No: Do not add to previous draw Performed By: #### 5 [id number] #### [facility] [address] CPK-MB PROFILEon 07-26-2020 CK [Catalytic activity/Vol] 24 U/L Low 30-223 The [facility] Comment on above: Order Comment: No: D o not add to previous draw Performed By: #### 1 0070, 28746, 03097, 02564, 06250, 53225 #### [facility] [address] CK.MB [Mass/Vol] 1.5 ng/mL Normal 0.0-5.0 The [facility] Comment on above: Order Comment: No: D o not add to previous draw Result Comment: IF T OTAL CK <200 U/L AND: 1. CKMB IS 5-10 NG/ML----BORDERLINE 2. CKMB IS >10 NG/ML----[place]IC[place] OR IF TOTAL CK >200 U/L AND CKMB INDEX >1.9----[place] Performed By: #### 1 0070, 37130, 79985, 40889, 93195, 90340 #### [facility] [address] [place] [address], [facility] CK.MB [Mass/Vol] 6.3 ng/mL Critically high 0.0-1.9 The [facility] Comment on above: Order Comment: No: D o not add to previous draw Performed By: #### 1 0070, 77217, 75145, 31719, 91968, 55540 #### [facility] [address] [facility]. [address] D DIMER TESTon 07-26-2020 D-DIMER TEST 2.34 mcg/mL FEU High 0.27-0.49 The [facility] Comment on above: Order Comment: No: D o not add to previous draw Result Comment: D-Di ricky values of less than 0.50 ug/ml (FEU) are considered to be a negative predictor of thrombosis. However, the D-Dimer result should be used in conjunction with pretest probability and should not be used alone to diagnose a thrombotic event. Performed By: #### 5 3629, 93334, 31475 #### [facility] [address] [facility]. [address] History and Physicalon 07-26 History and Physical MR#: [id number] [facility] Pt. Name: Lesa Golden Admitted: 07/26/2020 Date of : 1940 Attending Physician: Jaqueline Quevedo M.D. Room #: [id number] Discharge Date: HISTORY AND PHYSICAL CHIEF COMPLAINT: Shortness of breath. HISTORY OF PRESENT ILLNESS: The patient is a 79-year-old female with a past medical history of atrial fibrillation, on Coumadin, fibromyalgia, hypertension, and history of COVID at the beginning of June, presented to [facility] as a direct transfer from [facility] ER. The patient presented to the ER today because of increasing shortness of breath. She states that it especially got worse over the weekends, so she came to the ER for evaluation. In the ER, she was found to be in atrial fibrillation with RVR and cardiology was called, so they requested the patient to be transferred to [facility]. Her initial heart rate was 120 [...] Normal affect and mood. LABORATORY DATA: From [facility] ER shows white blood cells 9.1, hemoglobin [...] and GI prophylaxis. 7. PT, OT, and Fence [employer] for discharge planning. Electronically Signed by: Jaqueline Quevedo M.D. 07/27/2020 10:46 A Jaqueline Quevedo M.D. Date Dict: 07/26/2020/06:24 P/Jaqueline Quevedo M.D. Date Trans: 07/26/2020 07:50 P/mmo [id number] Normal The [facility] LIVER BATTERYon 07-26-2020 Albumin [Mass/Vol] 3.4 g/dL Low 3.5-5.7 The [facility] Comment on above: Order Comment: No: D o not add to previous draw Performed By: #### 5 3629, 17588, 05808 #### [facility] [address] [facility] [address], [facility] ALKALINE PHOSPH 82 IU/L Normal 34-104 The [facility] Comment on above: Order Comment: No: D o not add to previous draw Performed By: #### 5 3629, 42377, 13379 #### [facility] [address] [place] [address], [place] ALT [Catalytic activity/Vol] 28 U/L Normal 7-52 The [facility] Comment on above: Order Comment: No: D o not add to previous draw Performed By: #### 5 3629, 49883, 81308 #### [facility] [address] [place] [address], [place] AST [Catalytic activity/Vol] 26 U/L Normal 13-39 The [facility] Comment on above: Order Comment: No: D o not add to previous draw Performed By: #### 5 3629, 60209, 41336 #### [facility] [address] [place] [address], [place] Bilirubin [Mass/Vol] 0.6 mg/dL Normal 0.3-1.0 The [facility] Comment on above: Order Comment: No: D o not add to previous draw Performed By: #### 5 362, 11857, 93893 #### [facility] [address] [place] [address], [place] Bilirubin.direct [Mass/Vol] 0.2 mg/dL Normal 0.0-0.2 The [facility] Comment on above: Order Comment: No: D o not add to previous draw Performed By: #### 5 3629, 02712, 45827 #### [facility] [address] [place] [address], [place] Protein [Mass/Vol] 5.8 g/dL Low 6.0-8.3 The [facility] Comment on above: Order Comment: No: D o not add to previous draw Performed By: #### 5 3629, 02870, 00552 #### [facility] [address] [place] [address], [place] MAGNESIUM BLOODon 07-26-2020 Magnesium [Mass/Vol] 1.8 mg/dL Low 1.9-2.7 The [facility] Comment on above: Order Comment: No: D o not add to previous draw Performed By: #### 5 362, 55177, 88790 #### [facility] [address] [place] [address], [facility] PHOSPHORUS BLOODon 0 Phosphate [Mass/Vol] 3.4 mg/dL Normal 2.5-5.0 The [facility] Comment on above: Order Comment: No: D o not add to previous draw Performed By: #### 5 3629, 60444, 90838 #### [facility] [address] [facility] PROTHROMBIN TIMEon 0 INR Coag (PPP) [Relative time] 3.23 {INR} High 0.91-1.16 The [facility] Comment on above: Order Comment: No: D [...] CHEST 1995;[id number]. Performed By: #### 5 3629, 10663, 10531 #### [facility] [address] [facility] PT Coag (PPP) [Time] 33.3 s High 12.3-14.8 The [facility] Comment on above: Order Comment: No: D o not add to previous draw Result Comment: ALL RESULTS MUST BE INTERPRETED WITH RESPECT TO BLOOD DRAWING ARTIFACT OR DILUTION ERROR OF ANTICOAGULANT AT THE TIME OF SAMPLING. Performed By: #### 5 3629, 45143, 22505 #### [facility] [address] TROPONIN-Ion 07-26-2020 Troponin I.cardiac [Mass/Vol] 0.01 ng/mL Normal 0.00-0.04 The [facility] Comment on above: Order Comment: No: D o not add to previous draw Result Comment: REFE RENCE RANGES: 0.00 - 0.04 ng/ml NORMAL 0.05 - 0.50 ng/ml INDETERMINATE > 0.50 ng/ml CONSISTENT WITH AN M.I. Performed By: #### 5 3629, 72513, 48617 #### [facility] [address] Social History Date Type Detail Facility Start: 05-31-2023 End: 11-28-2023 No alcohol use No alcohol use [facility] [address] DO Work Phone: Start: 05-31-2023 End: 11-28-2023 Sex Assigned At [facility] [employer] Other Start: 05-31-2023 Tobacco use and exposure Smokeless tobacco non-user [facility] Work Phone: Start: 05-31-2023 End: 01-22-2024 Alcohol intake Lifetime non-drinker (finding) [facility] Work Phone: Start: 05-21-2023 End: 01-22-2024 Exposure to SARS-CoV-2 (event) Not sure [facility] Start: 08-22-2021 End: 01-19-2024 Tobacco smoking status NHIS Never smoked tobacco (finding) [facility] Start: 1940 Sex Assigned At Female F [facility] Start: 1940 Sex Assigned At Not on file [facility] Work Phone: Vital Signs Date Time Vital Sign Value Performing Clinician Facility 02-15-2024 08:46-0400 Body height 149.86 cm DO Chester Ball Work Phone: [facility] 02-15-2024 08:46-0400 Body mass index (BMI) [Ratio] 30.9 kg/m2 DO Chester Ball Work Phone: [facility] 02-15-2024 08:46-0400 Body weight 69.45 kg DO Chester Ball Work Phone: [facility] 02-15-2024 08:46-0400 Diastolic blood pressure 89 mm[Hg] DO Chester Ball Work Phone: [facility] 02-15-2024 08:46-0400 Heart rate 97 /min DO Chester Ball Work Phone: [facility] 02-15-2024 08:46-0400 Respiratory rate 20 /min DO Chester Ball Work Phone: [facility] 02-15-2024 08:46-0400 SaO2% (BldA) [Mass fraction] 96 % DO Chester Ball Work Phone: [facility] 02-15-2024 08:46-0400 Systolic blood pressure 139 mm[Hg] DO Chester Ball Work Phone: [facility] 01-28-2024 15:25-0400 Body height 149.86 cm DO Chester Ball Work Phone: [facility] 01-28-2024 15:25-0400 Body mass index (BMI) [Ratio] 31.4 kg/m2 DO Chester Ball Work Phone: [facility] 01-28-2024 15:25-0400 Body weight 70.47 kg DO Chester Ball Work Phone: [facility] 01-28-2024 15:25-0400 Diastolic blood pressure 79 mm[Hg] DO Chester Ball Work Phone: [facility] 01-28-2024 15:25-0400 Heart rate 72 /min DO Chester Ball Work Phone: [facility] 01-28-2024 15:25-0400 Respiratory rate 20 /min DO Chester Ball Work Phone: [facility] 01-28-2024 15:25-0400 Systolic blood pressure 137 mm[Hg] DO Chester Ball Work Phone: [facility] 01-22-2024 12:46-0400 Body height 149.9 cm [facility] 01-22-2024 12:46-0400 Body mass index (BMI) [Ratio] 30.9 kg/m2 [facility] 01-22-2024 12:46-0400 Body weight 69.4 kg [facility] 01-22-2024 12:46-0400 Diastolic blood pressure 94 mm[Hg] [facility] 01-22-2024 12:46-0400 Heart rate 71 /min [facility] 01-22-2024 12:46-0400 Systolic blood pressure 134 mm[Hg] [facility] 01-20-2024 12:00-0400 Diastolic blood pressure 86 mm[Hg] DO Chester Ball Work Phone: [facility] 01-20-2024 12:00-0400 Heart rate 78 /min DO Chester Ball Work Phone: [facility] 01-20-2024 12:00-0400 Respiratory rate 18 /min DO Chester Ball Work Phone: [facility] 01-20-2024 12:00-0400 SaO2% (BldA) [Mass fraction] 96 % DO Chester Ball Work Phone: [facility] 01-20-2024 12:00-0400 Systolic blood pressure 128 mm[Hg] DO Chester Ball Work Phone: [facility] 01-20-2024 09:23-0400 Body temperature 97.9 [degF] DO Chester Ball Work Phone: [facility] 01-20-2024 06:00-0400 Body weight 70 kg DO Chester Ball Work Phone: [facility] 01-18-2024 21:55-0400 Body height 149.86 cm DO Chester Ball Work Phone: [facility] 01-18-2024 21:00-0400 Diastolic blood pressure 97 mm[Hg] DO Chester Ball Work Phone: [facility] 01-18-2024 21:00-0400 Heart rate 118 /min DO Chester Ball Work Phone: [facility] 01-18-2024 21:00-0400 Respiratory rate 18 /min DO Chester Ball Work Phone: [facility] 01-18-2024 21:00-0400 SaO2% (BldA) [Mass fraction] 95 % DO Chester Ball Work Phone: [facility] 01-18-2024 21:00-0400 Systolic blood pressure 138 mm[Hg] DO Chester Ball Work Phone: [facility] 01-18-2024 15:05-0400 Body height 149.86 cm DO Chester Ball Work Phone: [facility] 01-18-2024 15:05-0400 Body temperature 97.8 [degF] DO Chester Ball Work Phone: [facility] 01-18-2024 15:05-0400 Body weight 69.9 kg DO Chester Ball Work Phone: [facility] 11-27-2023 15:07-0400 Body height 160.02 cm DO Chester Ball Work Phone: [facility] 11-27-2023 15:07-0400 Body mass index (BMI) [Ratio] 29.1 kg/m2 DO Chester Ball Work Phone: [facility] 11-27-2023 15:07-0400 Body weight 74.61 kg DO Chester Ball Work Phone: [facility] 11-27-2023 15:07-0400 Diastolic blood pressure 83 mm[Hg] DO Chester Ball Work Phone: [facility] 11-27-2023 15:07-0400 Heart rate 116 /min DO Chester Ball Work Phone: [facility] 11-27-2023 15:07-0400 Respiratory rate 12 /min DO Chester Ball Work Phone: [facility] 11-27-2023 15:07-0400 Systolic blood pressure 135 mm[Hg] DO Chester Ball Work Phone: [facility] 09-19-2023 13:07-0500 Body height 149.9 cm Debbie Mac MD Work Phone: [facility] 09-19-2023 13:07-0500 Body mass index (BMI) [Ratio] 33.2 kg/m2 Debbie Mac MD Work Phone: [facility] 09-19-2023 13:07-0500 Body weight 74.57 kg Debbie Mac MD Work Phone: [facility] 09-19-2023 13:07-0500 Diastolic blood pressure 92 mm[Hg] Debbie Mac MD Work Phone: [facility] 09-19-2023 13:07-0500 Heart rate 91 /min Debbie Mac MD Work Phone: [facility] 09-19-2023 13:07-0500 Systolic blood pressure 126 mm[Hg] Debbie Mac MD Work Phone: [facility] 08-21-2023 13:27-0500 Body height 149.[address] 08-21-2023 13:27-0500 Body mass index (BMI) [Ratio] 33.33 kg/m2 [address] 08-21-2023 13:27-0500 Body weight 74.[address] 08-21-2023 13:27-0500 Diastolic blood pressure 64 mm[Hg] [address] 08-21-2023 13:27-0500 Systolic blood pressure 116 mm[Hg] [address] 08-19-2023 12:15-0500 Body height 160.02 cm Sabina Garcia Other [facility] [employer] Other 05-31-2023 15:24-0400 Body height 149.9 cm Debbie Mac MD Work Phone: [facility] 05-31-2023 15:24-0400 Body mass index (BMI) [Ratio] 33.33 kg/m2 Debbie Mac MD Work Phone: [facility] 05-31-2023 15:24-0400 Body weight 74.84 kg Debbie Mac MD Work Phone: [facility] 05-31-2023 15:24-0400 Diastolic blood pressure 64 mm[Hg] Debbie Mac MD Work Phone: [facility] 05-31-2023 15:24-0400 Heart rate 70 /min Debbie Mac MD Work Phone: [facility] 05-31-2023 15:24-0400 Systolic blood pressure 122 mm[Hg] Debbie Mac MD Work Phone: [facility] 03-21-2023 15:00-0400 Body height 160.02 cm Chester Tyson Other [employer] [facility] [employer] Other 03-21-2023 15:00-0400 Body mass index (BMI) [Ratio] 28.62 kg/m2 Chester Ball Other [employer] [facility] [employer] Other 03-21-2023 15:00-0400 Body weight 73.3 kg Chester Ball Other [facility] [employer] Other 03-21-2023 15:00-0400 Diastolic blood pressure 79 mm[Hg] Chester Ball Other [facility] [employer] Other 03-21-2023 15:00-0400 Respiratory rate 12 /min Chester Ball Other [facility] [employer] Other 03-21-2023 15:00-0400 Systolic blood pressure 124 mm[Hg] Chester Ball Other [facility] [employer] Other 03-05-2023 14:42-0400 Diastolic blood pressure 76 mm[Hg] DO Cehster Ball Work Phone: [facility] 03-05-2023 14:42-0400 Heart rate 92 /min DO Chester Ball Work Phone: [facility] 03-05-2023 14:42-0400 Inhaled oxygen flow rate 3 L/min DO Chester Ball Work Phone: [facility] 03-05-2023 14:42-0400 Respiratory rate 16 /min DO Chester Ball Work Phone: [facility] 03-05-2023 14:42-0400 SaO2% (BldA) [Mass fraction] 93 % DO Chester Ball Work Phone: [facility] 03-05-2023 14:42-0400 Systolic blood pressure 129 mm[Hg] DO Chester Ball Work Phone: [facility] 03-05-2023 13:48-0400 Body temperature 97 [degF] DO Chester Ball Work Phone: [facility] 03-05-2023 09:23-0400 Body height 149.86 cm DO Chester Ball Work Phone: [facility] 03-05-2023 09:23-0400 Body weight 73 kg DO Chester Ball Work Phone: [facility] 01-25-2023 13:09-0400 Body height 149.86 cm Chester E Ball Work Phone: [facility] Work Phone: 01-25-2023 13:09-0400 Body mass index (BMI) [Ratio] 32.52 kg/m2 Chester E Ball Work Phone: [facility] Work Phone: 01-25-2023 13:09-0400 Body surface area Derived from formula 1.68 m2 Chester E Ball Work Phone: [facility] Work Phone: 01-25-2023 13:09-0400 Body weight 73.03 kg Chester E Ball Work Phone: [facility] Work Phone: 01-25-2023 13:09-0400 Diastolic blood pressure 78 mm[Hg] Chester E Ball Work Phone: [facility] Work Phone: 01-25-2023 13:09-0400 Heart rate 72 /min Chester E Ball Work Phone: [facility] Work Phone: 01-25-2023 13:09-0400 Systolic blood pressure 126 mm[Hg] Chester E Ball Work Phone: [facility] Work Phone: 01-09-2023 17:07-0400 Diastolic blood pressure 98 mm[Hg] DO Chester Ball Work Phone: [facility] 01-09-2023 17:07-0400 Heart rate 70 /min DO Chester Ball Work Phone: [facility] 01-09-2023 17:07-0400 Respiratory rate 14 /min DO Chester Ball Work Phone: [facility] 01-09-2023 17:07-0400 SaO2% (BldA) [Mass fraction] 95 % DO Chester Ball Work Phone: [facility] 01-09-2023 17:07-0400 Systolic blood pressure 130 mm[Hg] DO Chester Ball Work Phone: [facility] 01-09-2023 10:54-0400 Body height 149.86 cm DO Chester Ball Work Phone: [facility] 01-09-2023 10:54-0400 Body temperature 98.6 [degF] DO Chester Ball Work Phone: [facility] 01-09-2023 10:54-0400 Body weight 73.2 kg DO Chester Ball Work Phone: [facility] 01-04-2023 14:23-0400 Body height 149.86 cm Chester E Ball Work Phone: [facility] Work Phone: 01-04-2023 14:23-0400 Body mass index (BMI) [Ratio] 32.52 kg/m2 Chester E Ball Work Phone: [facility] Work Phone: 01-04-2023 14:23-0400 Body surface area Derived from formula 1.68 m2 Chester E Ball Work Phone: [facility] Work Phone: 01-04-2023 14:23-0400 Body weight 73.03 kg Chester E Ball Work Phone: [facility] Work Phone: 01-04-2023 14:23-0400 Diastolic blood pressure 88 mm[Hg] Chester E Ball Work Phone: [facility] Work Phone: 01-04-2023 14:23-0400 Heart rate 76 /min Chester E Ball Work Phone: [facility] Work Phone: 01-04-2023 14:23-0400 Systolic blood pressure 128 mm[Hg] Chester E Ball Work Phone: [facility] Work Phone: 01-03-2023 14:05-0400 Body height 149.86 cm Chester Hahn Ball Work Phone: [facility] Work Phone: 01-03-2023 14:05-0400 Body mass index (BMI) [Ratio] 33.12 kg/m2 Chester Hahn Ball Work Phone: [facility] [facility] Work Phone: 01-03-2023 14:05-0400 Body surface area Derived from formula 1.69 m2 Chester Hahn Ball Work Phone: [facility] Work Phone: 01-03-2023 14:05-0400 Body weight 74.39 kg Chester Hahn Ball Work Phone: [facility] Work Phone: 01-03-2023 14:05-0400 Diastolic blood pressure 62 mm[Hg] Chester Hahn Ball Work Phone: [facility] Work Phone: 01-03-2023 14:05-0400 Heart rate 70 /min Chester Hahn Ball Work Phone: [facility] Work Phone: 01-03-2023 14:05-0400 Systolic blood pressure 118 mm[Hg] Chester Hahn Ball Work Phone: [facility] Work Phone: 12-25-2022 13:41-0400 Diastolic blood pressure 84 mm[Hg] Chester Hahn Ball Work Phone: [facility] Work Phone: 12-25-2022 13:41-0400 Heart rate 107 /min Chester E Ball Work Phone: [facility]Clw[facility] Work Phone: 12-25-2022 13:41-0400 Respiratory rate 16 /min Chester E Ball Work Phone: [facility] Work Phone: 12-25-2022 13:41-0400 SaO2% (BldA) [Mass fraction] 96 % Chester E Ball Work Phone: [facility]Gphknpt[facility]wl[facility]ae Work Phone: 12-25-2022 13:41-0400 Systolic blood pressure 132 mm[Hg] Chester E Ball Work Phone: EM[facility]Okqzbonkkr[facility]Gcpwyg Work Phone: 11-27-2022 09:24-0400 Body height 149.86 cm DO Chester Ball Work Phone: [facility] 11-27-2022 09:24-0400 Body temperature 98 [degF] DO Chester Ball Work Phone: [facility] 11-27-2022 09:24-0400 Body weight 73 kg DO Chester Ball Work Phone: [facility] 11-27-2022 09:24-0400 Diastolic blood pressure 82 mm[Hg] DO Chester Ball Work Phone: [facility] 11-27-2022 09:24-0400 Heart rate 105 /min DO Chester Ball Work Phone: [facility] 11-27-2022 09:24-0400 Respiratory rate 18 /min DO Chester Ball Work Phone: [facility] 11-27-2022 09:24-0400 SaO2% (BldA) [Mass fraction] 97 % DO Chester Ball Work Phone: [facility] 11-27-2022 09:24-0400 Systolic blood pressure 136 mm[Hg] DO Chester Ball Work Phone: [facility] 10-24-2022 14:30-0500 Body height 160.02 cm Rachel Larios Other [employer] [facility] [employer] Other 10-24-2022 14:30-0500 Body mass index (BMI) [Ratio] 28.16 kg/m2 Rachel Larios Other [employer] Other 10-24-2022 14:30-0500 Body weight 72.12 kg Rachel Larios Other [employer] Other 10-24-2022 14:30-0500 Diastolic blood pressure 98 mm[Hg] Rachel Larios Other [employer] Other 10-24-2022 14:30-0500 SaO2% (BldA) [Mass fraction] 97 % Rachel Larios Other [employer] Other 10-24-2022 14:30-0500 Systolic blood pressure 152 mm[Hg] Rachel Larios Other [employer] Other 10-13-2022 10:48-0500 Body height 149.86 cm Chester Hahn [employer] Work Phone: [facility] DO Work Phone: 10-13-2022 10:48-0500 Body mass index (BMI) [Ratio] 32.11 kg/m2 Chester Hahn Ball Work Phone: [facility] DO Work Phone: 10-13-2022 10:48-0500 Body surface area Derived from formula 1.67 m2 Chester E Ball Work Phone: [facility] DO Work Phone: 10-13-2022 10:48-0500 Body weight 72.12 kg Chester E Ball Work Phone: [facility] [address] DO Work Phone: 10-13-2022 10:48-0500 Diastolic blood pressure 66 mm[Hg] Chester E Ball Work Phone: [facility] [employer] 250 DO Work Phone: 10-13-2022 10:48-0500 Heart rate 72 /min Chester E Ball Work Phone: [facility] DO Work Phone: 10-13-2022 10:48-0500 Systolic blood pressure 98 mm[Hg] Chester Hahn Ball Work Phone: [facility] DO Work Phone: 09-27-2022 13:36-0500 Body height 149.86 cm Chester E Ball Work Phone: [facility] DO Work Phone: 09-27-2022 13:36-0500 Body mass index (BMI) [Ratio] 31.91 kg/m2 Chester Hahn Ball Work Phone: [facility] DO Work Phone: 09-27-2022 13:36-0500 Body surface area Derived from formula 1.67 m2 Chester E Ball Work Phone: [facility] DO Work Phone: 09-27-2022 13:36-0500 Body weight 71.67 kg Chester Hahn Ball Work Phone: [facility] DO Work Phone: 09-27-2022 13:36-0500 Diastolic blood pressure 86 mm[Hg] Chester E Ball Work Phone: [facility] DO Work Phone: 09-27-2022 13:36-0500 Heart rate 70 /min Chester E Ball Work Phone: [facility] DO Work Phone: 09-27-2022 13:36-0500 Systolic blood pressure 122 mm[Hg] Chester E Ball Work Phone: [facility] DO Work Phone: 09-21-2022 16:34-0500 Body temperature 97.8 [degF] DO Chester Ball Work Phone: [facility] 09-21-2022 16:34-0500 Diastolic blood pressure 77 mm[Hg] DO Chester Ball Work Phone: [facility] 09-21-2022 16:34-0500 Heart rate 68 /min DO Chester Ball Work Phone: [facility] 09-21-2022 16:34-0500 Respiratory rate 18 /min DO Chester Ball Work Phone: [facility] 09-21-2022 16:34-0500 SaO2% (BldA) [Mass fraction] 96 % DO Chester Ball Work Phone: [facility] 09-21-2022 16:34-0500 Systolic blood pressure 134 mm[Hg] DO Chester Ball Work Phone: [facility] 09-21-2022 06:00-0500 Body weight 73.2 kg DO Chester Ball Work Phone: [facility] 09-17-2022 15:30-0500 Diastolic blood pressure 81 mm[Hg] DO Chester Ball Work Phone: [facility] 09-17-2022 15:30-0500 Heart rate 75 /min DO Chester Ball Work Phone: [facility] 09-17-2022 15:30-0500 Respiratory rate 16 /min DO Chester Ball Work Phone: [facility] 09-17-2022 15:30-0500 SaO2% (BldA) [Mass fraction] 96 % DO Chester Ball Work Phone: [facility] 09-17-2022 15:30-0500 Systolic blood pressure 139 mm[Hg] DO Chester Ball Work Phone: [facility] 09-17-2022 14:00-0500 Body height 149.86 cm DO Chester Ball Work Phone: [facility] 09-17-2022 14:00-0500 Body weight 72.1 kg DO Chester Ball Work Phone: [facility] 09-17-2022 13:00-0500 Body temperature 97.8 [degF] DO Chester Ball Work Phone: [facility] 09-12-2022 16:00-0500 Body height 160.02 cm Chester Ball Other [employer] Other 09-12-2022 16:00-0500 Body mass index (BMI) [Ratio] 28.02 kg/m2 Chester Ball Other [facility] [employer] Other 09-12-2022 16:00-0500 Body weight 71.76 kg Chester Ball Other [employer] Other 09-12-2022 16:00-0500 Diastolic blood pressure 76 mm[Hg] Chester Ball Other [employer] [facility] [employer] Other 09-12-2022 16:00-0500 Respiratory rate 12 /min Chetser Ball Other [employer] Other 09-12-2022 16:00-0500 SaO2% (BldA) [Mass fraction] 97 % Chester Ball Other [employer] Other 09-12-2022 16:00-0500 Systolic blood pressure 132 mm[Hg] Chester Ball Other [employer] Other 09-06-2022 07:32-0500 Body temperature 97 [degF] DO Chester Ball Work Phone: [facility] 09-06-2022 07:32-0500 Diastolic blood pressure 83 mm[Hg] DO Chester Ball Work Phone: [facility] 09-06-2022 07:32-0500 Heart rate 92 /min DO Chester Ball Work Phone: [facility] 09-06-2022 07:32-0500 Respiratory rate 18 /min DO Chester Ball Work Phone: [facility] 09-06-2022 07:32-0500 SaO2% (BldA) [Mass fraction] 94 % DO Chester Ball Work Phone: [facility] 09-06-2022 07:32-0500 Systolic blood pressure 141 mm[Hg] DO Chester Ball Work Phone: [facility] 09-06-2022 06:00-0500 Body weight 70.1 kg DO Chester Ball Work Phone: [facility] 09-04-2022 14:04-0500 Body height 149.86 cm DO Chester Ball Work Phone: [facility] 09-04-2022 12:21-0500 40 1 Chester E Ball Work Phone: [facility] DO Work Phone: Comment on above: [id number] 09-01-2022 22:47-0500 Diastolic blood pressure 85 mm[Hg] DO Chester Ball Work Phone: [facility] 09-01-2022 22:47-0500 Heart rate 98 /min DO Chester Ball Work Phone: [facility] 09-01-2022 22:47-0500 Systolic blood pressure 151 mm[Hg] DO Chester Ball Work Phone: [facility] 09-01-2022 22:30-0500 Respiratory rate 26 /min DO Chester Ball Work Phone: [facility] 09-01-2022 22:30-0500 SaO2% (BldA) [Mass fraction] 98 % DO Chester Ball Work Phone: [facility] 09-01-2022 12:07-0500 Body height 149.86 cm DO Chester Ball Work Phone: [facility] 09-01-2022 12:07-0500 Body temperature 98.3 [degF] DO Chester Ball Work Phone: [facility] 09-01-2022 12:07-0500 Body weight 73 kg DO Chester Ball Work Phone: [facility] 08-24-2022 10:03-0500 Body height 149.86 cm Chester E Ball Work Phone: [facility] DO Work Phone: 08-24-2022 10:03-0500 Body mass index (BMI) [Ratio] 32.92 kg/m2 Chester E Ball Work Phone: [facility] DO Work Phone: 08-24-2022 10:03-0500 Body surface area Derived from formula 1.69 m2 Chester E Ball Work Phone: [facility] DO Work Phone: 08-24-2022 10:03-0500 Body weight 73.94 kg Chester E Ball Work Phone: [facility] DO Work Phone: 08-24-2022 10:03-0500 Diastolic blood pressure 98 mm[Hg] Chester Hahn Ball Work Phone: [facility] DO Work Phone: 08-24-2022 10:03-0500 Heart rate 112 /min Chester E Ball Work Phone: [facility] DO Work Phone: 08-24-2022 10:03-0500 Systolic blood pressure 132 mm[Hg] Chester E Ball Work Phone: [facility] DO Work Phone: 06-26-2022 14:26-0500 Body height 149.86 cm Chester E Ball Work Phone: [facility] DO Work Phone: 06-26-2022 14:26-0500 Body mass index (BMI) [Ratio] 32.92 kg/m2 Chester E Ball Work Phone: [facility] [address] [address] DO Work Phone: 06-26-2022 14:26-0500 Body surface area Derived from formula 1.69 m2 Chester E Ball Work Phone: [facility] [address] DO Work Phone: 06-26-2022 14:26-0500 Body weight 73.94 kg Chester E Ball Work Phone: [facility] [address] DO Work Phone: 06-26-2022 14:26-0500 Diastolic blood pressure 70 mm[Hg] Chester E Ball Work Phone: [facility] [address] DO Work Phone: 06-26-2022 14:26-0500 Heart rate 71 /min Chester E Ball Work Phone: [facility] [address] DO Work Phone: 06-26-2022 14:26-0500 Systolic blood pressure 132 mm[Hg] Chester E Ball Work Phone: [facility] [employer] DO Work Phone: 04-27-2022 14:30-0400 Body height 160.02 cm John Mims Other [employer] Other 04-27-2022 14:30-0400 Body mass index (BMI) [Ratio] 27.45 kg/m2 John Mims Other [employer] Other 04-27-2022 14:30-0400 Body weight 70.31 kg John Mims Other [employer] Other 03-10-2022 10:53-0400 Diastolic blood pressure 82 mm[Hg] Chester E Ball Work Phone: [facility] [employer] [address] DO Work Phone: 03-10-2022 10:53-0400 Systolic blood pressure 126 mm[Hg] Chester Hahn Ball Work Phone: [facility] 250 DO Work Phone: 03-10-2022 10:19-0400 Body height 149.86 cm Chester Hahn Ball [facility] Work Phone: 03-10-2022 10:19-0400 Body mass index (BMI) [Ratio] 31.91 kg/m2 Chester Hahn Ball [facility] Work Phone: 03-10-2022 10:19-0400 Body surface area Derived from formula 1.67 m2 Chester Hahn Ball [facility] Work Phone: 03-10-2022 10:19-0400 Body weight 71.67 kg Chester Hahn Ball [facility] Work Phone: 03-10-2022 10:19-0400 Diastolic blood pressure 80 mm[Hg] Chester Hahn Ball [facility] Work Phone: 03-10-2022 10:19-0400 Heart rate 78 /min Chester Hahn Ball Work Phone: [facility] DO Work Phone: 03-10-2022 10:19-0400 Systolic blood pressure 146 mm[Hg] Chester Hahn Ball Work [facility] Work Phone: 02-28-2022 15:45-0400 Body height 160.02 cm John Mims Other [facility] [employer] Other 02-28-2022 15:45-0400 Body mass index (BMI) [Ratio] 27.45 kg/m2 John Mims Other [facility] [employer] Other 02-28-2022 15:45-0400 Body weight 70.31 kg John Mims Other [facility] [employer] Other 02-28-2022 15:32-0400 Body weight 0 kg DO Chester Ball Work Phone: [facility] 12-15-2021 08:46-0400 Body weight 0 kg DO Chester Ball Work Phone: [facility] 10-19-2021 16:04-0500 Body height 149.86 cm Chester E Ball Work Phone: [facility] [address] DO Work Phone: 10-19-2021 16:04-0500 Body mass index (BMI) [Ratio] 29.13 kg/m2 Chester E Ball Work Phone: [facility] [address] [address] DO Work Phone: 10-19-2021 16:04-0500 Body surface area Derived from formula 1.6 m2 Chester E Ball Work Phone: [facility] [address] [address] DO Work Phone: 10-19-2021 16:04-0500 Body weight 65.41 kg Chester E Ball Work Phone: [facility] [employer] 250 DO Work Phone: 10-19-2021 16:04-0500 Diastolic blood pressure 76 mm[Hg] Chester E Ball Work Phone: [facility] [employer] 250 DO Work Phone: 10-19-2021 16:04-0500 Heart rate 70 /min Chester Hahn Ball Work Phone: [facility] DO Work Phone: 10-19-2021 16:04-0500 Systolic blood pressure 110 mm[Hg] Chester E Ball Work Phone: [facility] DO Work Phone: 07-26-2021 14:31-0500 Body height 149.86 cm Chester E Ball Work Phone: [facility] DO Work Phone: 07-26-2021 14:31-0500 Body mass index (BMI) [Ratio] 29.49 kg/m2 Chester E Ball Work Phone: [facility] DO Work Phone: 07-26-2021 14:31-0500 Body surface area Derived from formula 1.61 m2 Chester E Ball Work Phone: [facility] DO Work Phone: 07-26-2021 14:31-0500 Body weight 66.23 kg Chester E Ball Work Phone: [facility] DO Work Phone: 07-26-2021 14:31-0500 Diastolic blood pressure 80 mm[Hg] Chester E Ball Work Phone: [facility] DO Work Phone: 07-26-2021 14:31-0500 Heart rate 70 /min Chester E Ball Work Phone: [facility] DO Work Phone: 07-26-2021 14:31-0500 Systolic blood pressure 124 mm[Hg] Chester E Ball Work Phone: [facility] DO Work Phone: 07-06-2021 15:54-0500 Body height 149.86 cm Chester Hahn Ball Work Phone: [facility] DO Work Phone: 07-06-2021 15:54-0500 Body mass index (BMI) [Ratio] 28.48 kg/m2 Chester Hahn Ball Work Phone: [facility] DO Work Phone: 07-06-2021 15:54-0500 Body surface area Derived from formula 1.59 m2 Chester Hahn Ball Work Phone: [facility] DO Work Phone: 07-06-2021 15:54-0500 Body temperature 97.2 [degF] Chester Hahn Ball Work Phone: [facility] DO Work Phone: 07-06-2021 15:54-0500 Body weight 63.96 kg Chester Hahn Ball Work Phone: [facility] DO Work Phone: 07-06-2021 15:54-0500 Diastolic blood pressure 49 mm[Hg] Chester Hahn Ball Work Phone: [facility] DO Work Phone: 07-06-2021 15:54-0500 Heart rate 73 /min Chester Hahn Ball Work Phone: [facility] DO Work Phone: 07-06-2021 15:54-0500 Systolic blood pressure 95 mm[Hg] Chester E Ball Work Phone: [facility] DO Work Phone: 06-30-2021 00:00-0500 0 1 Chester E Ball Work Phone: [facility] DO Work Phone: Comment on above: [id number] 06-06-2021 15:33-0400 Body height 152.4 cm Chester E Ball Work Phone: [facility] DO Work Phone: 06-06-2021 15:33-0400 Body mass index (BMI) [Ratio] 28.12 kg/m2 Chester E Ball Work Phone: [facility] DO Work Phone: 06-06-2021 15:33-0400 Body surface area Derived from formula 1.62 m2 Chester E Ball Work Phone: [facility] DO Work Phone: 06-06-2021 15:33-0400 Body weight 65.32 kg Chester E Ball Work Phone: [facility] DO Work Phone: 06-06-2021 15:33-0400 Diastolic blood pressure 64 mm[Hg] Chester E Ball Work Phone: [facility] DO Work Phone: 06-06-2021 15:33-0400 Heart rate 110 /min Chester E Ball Work Phone: [facility] DO Work Phone: 06-06-2021 15:33-0400 Systolic blood pressure 88 mm[Hg] Chester E Ball Work Phone: [facility] DO Work Phone: Functional Status Date Assessment Result Facility 01-20-2024 Functional status Patient at Baseline [facility] Work Phone: 09-21-2022 Functional status Patient at Baseline [facility] Work Phone: 09-06-2022 Functional status Patient at Baseline [facility] Work Phone: 09-02-2022 Functional status Bathing Patient at [facility] Work Phone: Mental Status Date Assessment Result Facility 01-20-2024 Cognitive function Cognitive Sta tus Patient at Baseline [facility] Work Phone: 09-21-2022 Cognitive function Cognitive Sta tus Patient at Baseline [facility] Work Phone: 09-06-2022 Cognitive function Cognitive Sta tus Patient at Baseline [facility] Work Phone: Clinical Notes 06-21-2021 to 01-22-2024 [...] (4' 11 ) documented in this encounter [facility] Work Phone: 01-20-2024 Progress note Note Date/Time January 20, 2024 1:46p m [facility] EN[facility] [address] [place] [address] Cardiology Progress Note Signed Patient: Lesa Golden MR#: [id number] : 1940 Acct:[id number] Age/Sex: 83 / F Adm Date: 4 Loc: 3T Room: [address] [place] [address] Type: ADM IN Attending Dr: Izzy Capps [...] this regimen Documented By: Christopher Richardson MD [id number] Signed By: <Electronically signed by MD Christopher Richardson> 01/20/[address] [facility] Work Phone: 1(926) 104-581606-01-2024 Progress note Author Izzy Capps [facility] January 19, 2024 6:48pm Note Date/Time January 19, 2024 5:02p m [facility] ENTER [address] [place] [address] Hospitalist Progress Note Signed Patient: Lesa Golden MR#: [id number] : 1940 Acct:[id number] Age/Sex: 83 / F Adm Date: 4 Loc: Room: [address] [place] [address] Type: ADM IN Attending Dr: Izzy Capps [...] 1,000 Ml IV 01/17/25 15:29 75 mls/hr .[id number] KWAN Administration Diltiazem HCl 100 mg in [...] Plan Documented By: Izzy Capps MD 01/19/24 0346 Signed By: <Electronically signed by Izzy Capps MD> 01/19/[address] [facility] Work Phone: 1(321) 991-283606-01-2024 Consult note Author Christopher Richardson [facility] January 19, 2024 12:11pm Note Date/Time January 19, 2024 12:08 pm [facility] [address] [place] [address] Cardiology Consult Note Signed Patient: Lesa Golden MR#: [id number] : 1940 Acct:[id number] Age/Sex: 83 / F Adm Date: 4 Loc: Room: [address] [place] [address] Type: ADM IN Attending Dr: Izzy Capps [...] and no additional complaints, except as documented [facility] Medical History Chronic heart failure with preserved [...] request of Phys. EHR Cmte History of cardiac pacemaker in situ Presbyesophagus [...] clean-up per request of Phys. EHR Cmte Surgical History History of cholecystectomy 2022 History of colonoscopy 2011 History of cardiac catheterization Problem List clean-up per request of Phys. EHR Cmte H/O eye surgery right eye Problem List clean-up per request of Phys. EHR Cmte History of cataract surgery marybeth eye Problem List clean-up per request of Phys. EHR Cmte History of appendectomy Problem List clean-up per request of Phys. EHR Cmte History of tonsillectomy Problem List clean-up per request of Phys. EHR Cmte H/O foot surgery left Problem List clean-up per request of Phys. EHR Cmte History of hysterectomy Problem List clean-up per request of Phys. EHR Cmte Family History Father Heart & renal disease, hypertensive, with heart fail/chron kidney dis Depression Sister Heart disease Mother Brain tumor Father Mother Social History Smoking Status: Never smoker Substance Use Type: None Substance Abuse Comment: etoh occasional Social History Comments: independent living at the [facility] Medications and Allergies Allergies Sulfa (Sulfonamide Antibiotics) [...] A 2,500 unit-vit C 100 mg-biotin 2,500 wrh-mjaf-dlvvpb capsule (Mihb-Muxf-Trjj (vit A,I-jpcogv-Qe-Cu)) 1 cap PO DAILY 01/18/24 [History Confirmed [...] x10E3/uL Lymph # (Auto) 1.0 (1.00-4.8) x10E3/uL [place] # (Auto) 0.8 (0.0-0.8) x10E3/uL Eos # [...] 1000 ,000 ml @ 75 mls/hr IV .[id number] KWAN Rx#:[id number] dilTIAZem 100 MG -*NaCl* 100 mg 100 / 100 In 100 ml @ 5 MG/HR 5 mls/hr IV .Q20H KWAN Rx#:[id number] Oral 200 / 200 Other: # Voids 1 # Unmeasured Voids 1 # Bowel Movements 0 Weight 69.9 kg 69.7 kg Date of Last Bowel Movement 01/18/24 01/18/24 Patient Weight 01/19/24 23:59 Weight 69.7 kg Lab 01/18/24 15:40 PT 16.8 H INR 1.5 APTT 31.3 A&P - Cardiology (1) Atrial fibrillation with RVR: Assessment/Problem Details: Symptomatic. Believe the adventism of maintenance of sinus rhythm is of [...] responseto therapy Documented By: Christopher Richardson MD [id number] Signed By: <Electronically signed by MD Christopher Richardson> 01/19/24 1211 [facility] Work Phone: 1(749) 393-116206-01-2024 History and physical note Author Izzy Capps [facility] January 19, 2024 1:25am Note Date/Time January 18, 2024 8:45p m [facility] [address] [place] [address] Hospitalist H&P Signed Patient: Lesa Golden MR#: [id number] : 1940 Acct:[id number] Age/Sex: 83 / F Adm Date: 4 Loc: 3T Room: [address] [place] [address] Type: ADM IN Attending Dr: Izzy Capps [...] care Discussed with:?the medical team, the patient [facility] Medical History Chronic heart failure with preserved [...] List clean-up per request of Phys. [facility] Fibromy[facility] Problem List clean-up per request of Phys. [facility] Arthritis back and neck Problem List clean-up per request of Phys. [facility] Hypertension Problem List clean-up per request of Phys. [facility] History of cardiac pacemaker in situ Presbyesophagus Hiatal hernia Restless leg Hyperlipemia Problem List clean-up per request of Phys. [facility] CHF (congestive heart failure) Problem List clean-up per request of Phys. [facility] Kidney stones removal of kidney stone R flank in 2021 Problem List clean-up per request of Phys. [facility] Pacemaker Problem List clean-up per request of Phys. [facility] Atrial fibrillation, persistent Problem List clean-up per request of Phys. [facility] COVID-19 2019 Problem List clean-up per request of Phys. [facility] Atrial fibrillation with RVR Problem List clean-up per request of Phys. [facility] Hernia of abdominal wall Problem List clean-up per request of Phys. [facility] Surgical History History of cholecystectomy 2022 History of colonoscopy 2011 History of cardiac catheterization Problem List clean-up per request of Phys. [facility] H/O eye surgery right eye Problem List clean-up per request of Phys. EHR [facility] [facility] cataract surgery marybeth eye Problem List clean-up per request of Phys. [facility]HR [facility] History of appendectomy Problem List clean-up per request of Phys. EHR [facility] History of tonsillectomy Problem List clean-up per request of Phys. EHR [facility] H/O foot surgery left Problem List clean-up per request of Phys. EHR [facility] History of hysterectomy Problem List clean-up per request of Phys. [facility]HR [facility] Family History Father Heart & renal disease, hypertensive, with heart fail/chron kidney dis Depression Sister Heart disease Mother Brain tumor Father Mother Social History Smoking Status: Never smoker Substance Use Type: None Substance Abuse Comment: etoh occasional Social History Comments: independent living at the [place] in [facility] Medications and Allergies Allergies Sulfa (Sulfonamide Antibiotics) [...] A 2,500 unit-vit C 100 mg-biotin 2,500 xgo-xugv-waaxub capsule (Mhdz-Paug-Yjlg (vit A,R-mcihos-Er-Cu)) 1 cap PO DAILY 01/18/24 [History Confirmed [...] % (Auto) 9.2 % (.) 01/18/24 15:40 Whitfield % (Auto) 7.6 % (.) 01/18/24 15:40 Eos % (Auto) 1.2 % (.) 01/18/24 15:40 Baso % (Auto) 0.5 % (.) 01/18/24 15:40 Nucleat RBC Rel Count 0.1 /100 WBC (0-0.5) 01/18/24 15:40 Neut # (Auto) 8.5 x10E3/uL (1.8-7.7) H 01/18/24 15:40 Lymph # (Auto) 1.0 x10E3/uL (1.00-4.8) 01/18/24 15:40 Whitfield # (Auto) 0.8 x10E3/uL (0.0-0.8) 01/18/24 15:40 [...] signed by Izzy Capps MD> 01/19/24 0125 [facility] Work Phone: 1([phone]) 924-450701-31-2024 History of Present illness Narrative* Debbie Mac MD - 09/19/2023 1:00 PM EST Subjective Lesa Golden is a 83 y.o. female Chief [...] mouth once daily., Disp: , Rfl: HYDROcodone-acetaminophen (Byron) 10-325 mg tablet, Take 1 tablet by [...] vessel coronary artery [facility] Phone: [phone] Instructions* Patient Instructions* Maggy Vee LPN - [...] Maalox also. Pacemaker check [facility] Work Phone: 1([phone]) 521-523010-12-2023 History of Present illness Narrative* Debbie Mac [...] mouth once daily., Disp: , Rfl: HYDROcodone-acetaminophen (Byron) 10-325 mg tablet, Take 1 tablet by [...] 11. Dyspnea, unspecified type documented in this [facility] Work Phone: [phone]) [phone] Instructions* Patient Instructions* Maggy Vee LPN - [...] time of your visit. [facility] Work Phone: [phone]) [phone] Evaluation note* Encounter Date Diagnosis Assessment Notes [...] are maintaining regular scheduled appts with their manager of planning. No bleeding complications Mar, Chronic heart failure [...] (ICD-10 - R06.02) Multifactorial but mostly deconditioning. [facility] w/o obstructive coronary disease Psat 98% Untreated [...] High risk medication use (ICD-10 - Z79.899) [employer] Other 04-10-2023 Consult note Author Debbie Mac [facility] November 27, 2022 11:58am Note Date/Time November 27, 2022 11: 48am [facility] [address] [place] [address] Cardiology Consult Note Signed Patient: Lesa Golden MR#: [id number] : 1940 Acct:[id number] Age/Sex: 82 / F Adm Date: 3 Loc: NM Room: Type: [facility] Attending Dr: Wilbur Watson DO [...] function and a previous stress test in [place] that showed no evidence of myocardial ischemia. [...] Social History Comments: independent living at the [place] in [facility] Medications and Allergies Allergies fentanyl Allergy [...] signed by MD Debbie Mac> 11/27/22 1158 [facility] Work Phone: 1([phone]) [phone] Progress note Author Emmanuel Holland [facility] November 27, 2022 11:10am Note Date/Time November 27, 2022 11: 10am [facility] [address] [place] [address] Anesthesia Progress Note Signed Patient: Lesa Golden MR#: [id number] : 1940 Acct:[id number] Age/Sex: 82 / F Adm Date: 3 Loc: NM Room: Type: [facility] Attending Dr: Wilbur Watson DO [...] by Emmanuel Holland Jr, MD> 11/27/[address] [facility] Work Phone: [phone] Evaluation note* Encounter Date Diagnosis Assessment Notes Treatment Notes Treatment Clinical Notes Oct, Pulmonary nodule (ICD-10 - R91.1) CT chest: no nodules - 10/2022 [employer] Other 03-07-2023 Evaluation note* Encounter Date Diagnosis [...] verbalized understanding and agreement of tx plan. [employer] Other 02-02-2023 Discharge summary Author Sam Dukes [facility] September 21, 2022 3:33pm Note Date/Time September 21, 2022 3 :17pm [facility] [address] [place], [place] [id number] Discharge Summary Signed Patient: Lesa Golden MR#: [id number] : 1940 Acct:[id number] Age/Sex: 82 / F Adm Date: 3 Loc: Room: [address] [place] [address]: Sam Dukes DO Copies to: [...] and collapse. The patient was outside of [facility] when she suddenly lost consciousness. Work-up in [...] % (Auto) 68.2, Lymph % (Auto) 18.9, Whitfield % (Auto) 7.6, Eos % (Auto) 4.6, Baso % (Auto) 0.7, Nucleat RBC Rel Count 0.0, Neut # (Auto) 3.9, Lymph # (Auto) 1.1, Whitfield # (Auto) 0.4, Eos # (Auto) 0.3, [...] You are scheduled for an EKG at [facility] on 09/27/2022 at 1:00pm Instructions: Heart [...] <Electronically signed by Sam Dukes DO> 09/21/[address] [facility] Work Phone: 1(645) 858-567502-02-2023 Progress note Author Debbie Mac [facility] September 21, 2022 9:48am Note Date/Time September 21, 2022 9 :45am [facility] [address] [place] [address] Cardiology Progress Note Signed Patient: Lesa Golden MR#: [id number] : 1940 Acct:[id number] Age/Sex: 82 / F Adm Date: 3 Loc: Room: [address] [place] [address] Type: ADM IN Attending Dr: Sam Dukes [...] % (Auto) 68.2 Lymph % (Auto) 18.9 Whitfield % (Auto) 7.6 Eos % (Auto) 4.6 Baso % (Auto) 0.7 Nucleat RBC Rel Count 0.0 Neut # (Auto) 3.9 Lymph # (Auto) 1.1 Whitfield # (Auto) 0.4 Eos # (Auto) 0.3 [...] signed by MD Debbie Mac> 09/21/[address] [facility] Work Phone: 1([phone]) 550-688602-01-2023 Progress note Author Sam Dukes [facility] September 20, 2022 3:21pm Note Date/Time September 20, 2022 3 :21pm [facility] [address] [place] [address] Hospitalist Progress Note Signed Patient: Lesa Golden MR#: [id number] : 1940 Acct:[id number] Age/Sex: 82 / F Adm Date: 3 Loc: 4 Room: [address] [place] [address] Type: ADM IN Attending Dr: Sam Dukes [...] signed by Sam Dukes DO> 09/20/[address] [facility] Work Phone: [phone] 398-493002-01-2023 History of Present illness Narrative* Lesa Golden is an 82 y/o female referred by Dr Mac for evaluation of AF. * PMH includes HTN, HLD, HF, SSS s/p PPG implant, CKD, obesity and AF. * Treatment of her AF includes Amiodarone (d/c d for concerns of mcfp side effects), tikosyn (prolonged OTc), sotalol and DCCV (09/2022). * Symptoms of her AF include fatigue and BRAY. * Pt follows with Dr Stover for management of her AF. Pt has previously been on Amio but was concerned about intermodal customer service side effects. She was then put on [...] CONDUCTION @ 109 bpm * Echo 08/2022 ([facility]): LVEF 40%, moderate anteroseptal hypokinesis with wall motion suggestive of conduction abnormality, LA mildly dilated, trace MR & TR * Echo 06/2021: EF 45%, severe anteroseptal hypokinesis, mild-mod DD, LA mildly dilated, mild-mod MR,mild TR, mild-mod pHTN [facility] Work Phone: [phone] 680-817702-01-2023 History of Present illness Narrative* Lesa Golden is an 82 y/o female referred by Dr Mac for evaluation of AF. * PMH includes HTN, HLD, HF, SSS s/p PPG implant, CKD, obesity and AF. * Treatment of her AF includes Amiodarone (d/c d for concerns of intermodal customer service side effects), tikosyn (prolonged OTc), sotalol and DCCV (09/2022). * Symptoms of her AF include fatigue and BRAY. * Pt follows with Dr Stover for management of her AF. Pt has previously been on Amio but was concerned about mcfp side effects. She was then put on [...] CONDUCTION @ 109 bpm * Echo 08/2022 ([facility]): LVEF 40%, moderate anteroseptal hypokinesis with wall motion suggestive of conduction abnormality, LA mildly dilated, trace MR & TR * Echo 06/2021: EF 45%, severe anteroseptal hypokinesis, mild-mod DD, LA mildly dilated, mild-mod MR,mild TR, mild-mod pHTN [facility] [address] [place] Work Phone: 1([phone] 191-344702-01-2023 Progress note Author Debbie Mac [facility] September 20, 2022 9:04am Note Date/Time September 20, 2022 9 :03am [facility] [address] [place] [address] Cardiology Progress Note Signed Patient: Lesa Golden MR#: [id number] : 1940 Acct:[id number] Age/Sex: 82 / F Adm Date: 3 Loc: 4P Room: [address] [place] [address] Type: ADM IN Attending Dr: Sam Dukes [...] % (Auto) 65.4 Lymph % (Auto) 22.6 Whitfield % (Auto) 6.8 Eos % (Auto) 4.5 Baso % (Auto) 0.7 Nucleat RBC Rel Count 0.2 Neut # (Auto) 3.6 Lymph # (Auto) 1.2 Whitfield # (Auto) 0.4 Eos # (Auto) 0.2 [...] signed by MD Debbie Mac> 09/20/[address] [facility] Work Phone: 1(575) 337-108802-01-2023 [facility]23 Progress note Author Sam Dukes [facility] September 19, 2022 6:52pm Note Date/Time September 19, 2022 6 :52pm [facility] [address] [place] [address] Hospitalist Progress Note Signed Patient: Lesa Golden MR#: [id number] : 1940 Acct:[id number] Age/Sex: 82 / F Adm Date: 3 Loc: Room: [address] [place] [address] Type: ADM IN Attending Dr: Sam Dukes [...] <Electronically signed by Sam Dukes DO> 09/19/[address] [facility] Work Phone: [phone] Progress note Author Debbie Mac [facility] September 19, 2022 9:57am Note Date/Time September 19, 2022 9 :57am [facility] [address] [place] [address] Cardiology Progress Note Signed Patient: Lesa Golden MR#: [id number] : 1940 Acct:[id number] Age/Sex: 82 / F Adm Date: 3 Loc: 4 Room: [address] [place] [address] Type: ADM IN Attending Dr: Sam Dukes [...] % (Auto) 68.4 Lymph % (Auto) 20.4 Whitfield % (Auto) 6.6 Eos % (Auto) 4.0 Baso % (Auto) 0.6 Nucleat RBC Rel Count 0.1 Neut # (Auto) 4.2 Lymph # (Auto) 1.2 Whitfield # (Auto) 0.4 Eos # (Auto) 0.2 [...] signed by MD Debbie Mac> 09/19/[address] [facility] Work Phone: 1([phone]) 521-278801-30-2023 Progress note Author Sam Dukes [facility] September 18, 2022 6:04pm Note Date/Time September 18, 2022 6 :04pm [facility] [address] [place] [address] Hospitalist Progress Note Signed Patient: Lesa Golden MR#: [id number] : 1940 Acct:[id number] Age/Sex: 82 / F Adm Date: 3 Loc: Room: [address] [place] [address] Type: ADM IN Attending Dr: Sam Dukes [...] <Electronically signed by Sam Dukes DO> 09/18/[address] [facility] Work Phone: [phone] Consult note Author Debbie Mac [facility] September 18, 2022 3:50pm Note Date/Time September 18, 2022 3 :39pm [facility] [address] [place], [place] [id number] Cardiology Consult Note Signed Patient: Lesa Golden MR#: [id number] : 1940 Acct:[id number] Age/Sex: 82 / F Adm Date: 3 Loc: Room: [address] [place] [address] Type: ADM IN Attending Dr: Sam Dukes [...] test was 2 years ago back in [place] and was negative Review of Systems Review [...] Social History Comments: independent living at the [facility] Medications and Allergies Allergies fentanyl Allergy (Verified [...] signed by MD Debbie Mac> 09/18/22 1550 [facility] Work Phone: 1(692) 181-491101-29-2023 History and physical note Author Jay Ceja [facility] September 17, 2022 5:45pm Note Date/Time September 17, 2022 5 :45pm [facility] [address] [place] [address] Hospitalist H&P Signed Patient: Lesa Golden MR#: [id number] : 1940 Acct:[id number] Age/Sex: 82 / F Adm Date: 3 Loc: 4 Room: [address] [place] [address] Type: ADM IN Attending Dr: Jay Ceja [...] rate at home. Today she was at [facility] and she was standing upwaiting for her [...] Social History Comments: independent living at the [facility] Medications and Allergies Allergies fentanyl Allergy (Verified [...] % (Auto) 15.2 % (.) 09/17/22 13:19 Whitfield % (Auto) 7.1 % (.) 09/17/22 13:19 Eos % (Auto) 3.5 % (.) 09/17/22 13:19 Baso % (Auto) 0.6 % (.) 09/17/22 13:19 Nucleat RBC Rel Count 0.3 /100 WBC (0-0.5) 09/17/22 13:19 Neut # (Auto) 5.9 x10E3/uL (1.8-7.7) 09/17/22 13:19 Lymph # (Auto) 1.2 x10E3/uL (1.00-4.8) 09/17/22 13:19 Whitfield # (Auto) 0.6 x10E3/uL (0.0-0.8) 09/17/22 13:19 [...] pH 5.5 (5.0-9.0) 09/17/22 13:19 Ur Specific [place] 1.024 (1.001-1.030) 09/17/22 13:19 Urine Protein Trace [...] signed by Jay Ceja DO> 09/17/[address] [facility] Work Phone: 1([phone] Evaluation note* Encounter Date Diagnosis Assessment Notes Treatment Notes Treatment Clinical Notes Aug, Persistent atrial fibrillation (ICD-10 - I48.19) This patient is in NSR or rate controlled. This patient is anticoagulated to prevent thromboembolic events. They are maintaining regular scheduled appts with their manager of planning. Aug, Chronic heart failure with preserved ejection [...] use, the patient reduces the risk for [place], CVA, HTN, cardiac dysrhythmias and sudden cardiac [...] supplement, exercise w/ healthy diet. Symptoms tolerable [employer] Other 01-18-2023 Progress note Author Debbie Mac [facility] September 06, 2022 9:57am Note Date/Time September 06, 2022 9 :53am [facility] [address] [place] [address] Cardiology Progress Note Signed Patient: Lesa Golden MR#: [id number] : 1940 Acct:[id number] Age/Sex: 81 / F Adm Date: 3 Loc: Room: [address] [place] [address] Type: ADM IN Attending Dr: Anival Easton [...] signed by MD Debbie Mac> 09/06/[address] [facility] Work Phone: [phone] 404-458401-17-2023 Progress note Author Anival Easton [facility] September 05, 2022 6:18pm Note Date/Time September 05, 2022 3 :58pm [facility] [address] [place] [address] Hospitalist Progress Note Signed Patient: Lesa Golden MR#: [id number] : 1940 Acct:[id number] Age/Sex: 81 / F Adm Date: 3 Loc: Room: [address] [place] [address] Type: ADM IN Attending Dr: Anival Easton [...] 2. Dysphagia?speech therapy, postrepair paraesophageal hiatal hernia [place] 2016 Attending attestation: Patient was personally seen by me on the day of encounter. I reviewed her history and performed shea elements of exam and formulated the plan of care and confirmed the PUBLIC IMPROVEMENT INSPECTOR's note above. Plan of care reflects my direct input Documented By: MELY Jacob 3 1558 Signed By: <Electronically signed by MELY Haro> 09/05/22 1722 <Electronically signed by Anival Easton MD> 09/05/[address] [facility] Work Phone: 1([phone] 264-454001-17-2023 Progress note Author Debbie Mac [facility] September 05, 2022 12:06pm Note Date/Time September 05, 2022 1 2:06pm [facility] [address] [place] [address] Cardiology Progress Note Signed Patient: Lesa Golden MR#: [id number] : 1940 Acct:[id number] Age/Sex: 81 / F Adm Date: 3 Loc: Room: [address] [place] [address] Type: ADM IN Attending Dr: Anival Easton [...] % (Auto) 59.1 Lymph % (Auto) 25.6 Whitfield % (Auto) 9.7 Eos % (Auto) 4.7 Baso % (Auto) 0.9 Nucleat RBC Rel Count 0.2 Neut # (Auto) 3.3 Lymph # (Auto) 1.4 Whitfield # (Auto) 0.5 Eos # (Auto) 0.3 [...] signed by MD Debbie Mac> 09/05/[address] [facility] Work Phone: 1([phone] 479-330201-17-2023 Progress note Author Anival Easton [facility] September 05, 2022 8:27am Note Date/Time September 04, 2022 2 :47pm [facility] [address] [place] [address] Hospitalist Progress Note Signed Patient: Lesa Golden MR#: [id number] : 1940 Acct:[id number] Age/Sex: 81 / F Adm Date: 3 Loc: Room: [address] [place] [address] Type: ADM IN Attending Dr: Anival Easton [...] 3 1446 Signed By: <Electronically signed by ANP-ABI Haro> 09/04/228 <Electronically signed by Anival Easton MD> 09/05/[address] [facility] Work Phone: [phone] 215-784201-16-2023 Progress note Author Jimena Smith [facility] September 04, 2022 11:32am Note Date/Time September 04, 2022 1 1:32am [facility] [address] [place] [address] Cardiology Progress Note Signed Patient: Lesa Golden MR#: [id number] : 1940 Acct:[id number] Age/Sex: 81 / F Adm Date: 3 Loc: 4 Room: [address] [place] [address] Type: ADM IN Attending Dr: Anival Easton [...] % (Auto) 64.7 Lymph % (Auto) 22.7 Whitfield % (Auto) 7.6 Eos % (Auto) 4.3 Baso % (Auto) 0.7 Nucleat RBC Rel Count 0.2 Neut # (Auto) 4.3 Lymph # (Auto) 1.5 Whitfield # (Auto) 0.5 Eos # (Auto) 0.3 [...] pressure readings Documented By: Jimena Smith MD, [facility] 3 1129 Signed By: <Electronically signed by MD CLAUDIA Smith> 09/04/[address] [facility] Work Phone: [phone] 655-895301-15-2023 Progress note Author Jay Ceja [facility] September 03, 2022 1:12pm Note Date/Time September 03, 2022 1 :12pm [facility] [address] [place] [address] Hospitalist Progress Note Signed Patient: Lesa Golden MR#: [id number] : 1940 Acct:[id number] Age/Sex: 81 / F Adm Date: 3 Loc: Room: [address] [place] [address] Type: ADM IN Attending Dr: Jay Ceja [...] problemsafter repair of a paraesophageal hiatal hernia [facility] [place] and 2016. High-resolution CT scan of the [...] signed by Jay Ceja DO> 09/03/22 1312 [facility] Work Phone: [phone] 393-610601-15-2023 Progress note Author Jimena Smith [facility] September 03, 2022 12:24pm Note Date/Time September 03, 2022 1 2:21pm [facility] [address] [place], [place] [address] Cardiology Progress Note Signed Patient: Lesa Golden MR#: [id number] : 1940 Acct:[id number] Age/Sex: 81 / F Adm Date: 3 Loc: Room: [address] [place] [address] Type: ADM IN Attending Dr: Jay Ceja [...] % (Auto) 68.3 Lymph % (Auto) 19.1 Whitfield % (Auto) 8.2 Eos % (Auto) 3.9 Baso % (Auto) 0.5 Nucleat RBC Rel Count 0.2 Neut # (Auto) 5.0 Lymph # (Auto) 1.4 Whitfield # (Auto) 0.6 Eos # (Auto) 0.3 [...] add spironolactone Documented By: Jimena Smith MD, [facility] 3 1220 Signed By: <Electronically signed by MD CLAUDIA Smith> 09/03/[address] [facility] Work Phone: [phone] Consult note Author Jimena Smith [facility] September 02, 2022 2:58pm Note Date/Time September 02, 2022 2 :53pm [facility] [address] [place] [address] Cardiology Consult Note Signed Patient: Lesa Golden MR#: [id number] : 1940 Acct:[id number] Age/Sex: 81 / F Adm Date: 3 Loc: Room: [address] [place] [address] Type: ADM IN Attending Dr: Jay Ceja DO Copies to: DO Jimena Carias MD, [facility] Jay Ceja, ~ Cardiology HPI History [...] Social History Comments: independent living at the [place] in [facility] Medications and Allergies Allergies fentanyl Allergy [...] x10E3/uL Lymph # (Auto) 1.6 (1.00-4.8) x10E3/uL Whitfield # (Auto) 0.5 (0.0-0.8) x10E3/uL Eos # [...] ml @ 600 mls/hr IV [facility] Rx#:[id number] Amiodarone 360Mg-*D5w* 360 mg 200 / 200 200 / 400 200 / 400 In 200 ml @ 1 MG/MIN 33.333 mls /hr IV .Q6H [facility] Rx#:[id number] Oral 100 / 100 Other: # Voids [...] (primary) hypertension Documented By: Jimena Smith MD, [facility] 3 1452 Signed By: <Electronically signed by [facility] Jiemna Smith> 09/02/[address] [facility] Work Phone: 1([phone]) 121-722001-14-2023 Progress note Author Jay Ceja [facility] September 02, 2022 2:42pm Note Date/Time September 02, 2022 1 :43pm [facility] [address] [place] [address] Hospitalist Progress Note Signed Patient: Lesa Golden MR#: [id number] : 1940 Acct:[id number] Age/Sex: 81 / F Adm Date: 3 Loc: Room: [address] [place] [address] Type: ADM IN Attending Dr: Jya Ceja DO Copies to: ~ Date of [...] signed by Jay Ceja DO> 09/02/22 1442 [facility] Work Phone: 1([phone] History and physical note Author Jay Ceja [facility] September 01, 2022 8:29pm Note Date/Time September 01, 2022 8 :29pm [facility] [address] [place] [address] Hospitalist H&P Signed Patient: Lesa Golden MR#: [id number] : 1940 Acct:[id number] Age/Sex: 81 / F Adm Date: 3 Loc: ER Room: Type: [facility] ER Attending Dr: Copies to: DO Jay [...] review all of the events in the modeler system. None of these are consistent with [...] except as mentioned elsewhere in the documentation. [facility] Vacc[facility] for [facility]-19?: Yes Medical History (Updated 09/01/22 @ 20:27 by Jay Ceja, ) Atrial fibrillation with RVR Atrial fibrillation, persistent [...] Social History Comments: independent living at the [place] in [facility] Medications and Allergies Allergies fentanyl Allergy [...] wheezing. No focal crackles. Heart: On the modeler she has an irregularly irregular rhythm with [...] % (Auto) 13.9 % (.) 09/01/22 12:40 Whitfield % (Auto) 7.5 % (.) 09/01/22 12:40 Eos % (Auto) 4.1 % (.) 09/01/22 12:40 Baso % (Auto) 0.8 % (.) 09/01/22 12:40 Nucleat RBC Rel Count 0.1 /100 WBC (0-0.5) 09/01/22 12:40 Neut # (Auto) 5.9 x10E3/uL (1.8-7.7) 09/01/22 12:40 Lymph # (Auto) 1.1 x10E3/uL (1.00-4.8) 09/01/22 12:40 [place]field # (Auto) 0.6 x10E3/uL (0.0-0.8) 09/01/22 12:40 [...] pH 5.5 (5.0-9.0) 09/01/22 13:32 Ur Specific [place] 1.022 (1.001-1.030) 09/01/22 13:32 Urine Protein 30 [...] <Electronically signed by Jay Ceja DO> 09/01/222028 [facility] Work Phone: 1([phone]) [phone] Evaluation note* Encounter Date Diagnosis Assessment Notes Treatment Notes Treatment Clinical Notes Apr, Cirrhosis (ICD-10 - K74.60) Apr, Vomiting (ICD-10 - R11.10) THIS IS 10 MINS ATER EATING AND UNDIGESTED FOODS. WE WILL PROCEED WITH GASTRIC EMPTYING STUDY [employer] 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 Other 05-17-2022 Reason for visit NarrativePATIENT HERE FOR FOLLOW UP TO EMS PROCEDURE ON 01/03/2022 FOR DYSPHAGIA. PATIENT DID HAVE A MODIFIEDBARIUM SWALLOWNort [employer] Other 11-15-2021 Note [id number]:127[facility] 06-23-2021 [id number] ECG Post Procedure-[facility] [address] [place] Work Phone: 1(896) 784-536211-04-2021 [id number] ECG Post Procedure -[facility] [place] Work Phone: 1([phone]) 110-296911-04-2021 [id number]:09FR ECG Post Procedure [facility] [place] Work Phone: 1([phone] 279-432811-02-2021 [facility] [place] COVID-19 FRMCNegative (Normal) Range:Negative Comments:Testing for SARS-CoV-2 by RT-PCR This test was developed and its performance characteristics determined by [employer] ([employer]) and validated at the [facility]. This test has not been FDA [...] the authorization is terminated or revoked sooner.PERFORMED BY:[place] [address] [address] [place]END[place], [place] [phone] MEDICAL DIRECTORVITOR ZARATE M.D. -[facility]-[place] [address] [place] Work Phone: Comment on above:Testing for SARS-CoV-2 by RT-PCR This test was developed and its performance characteristics determined by [employer] (BD) and validated at the [facility]. This test has not been FDA [...] the authorization is terminated or revoked sooner.PERFORMED BY:[place] [address] [place], [place] [phone] MEDICAL DIRECTORVITOR ZARATE M.D. 06-21-2021 NoteFR COVID-19 [facility] (Normal)Range:Negative Comments:Testing for SARS-CoV-2 by RT-PCR This test was developed and its performance characteristics determined by [employer] ([employer]) and validated at the [facility]. This test has not been FDA [...] the authorization is terminated or revoked sooner.PERFORMED BY:[place] [address] [address] [place] [place] [phone] MEDICAL DIRECTORVITOR ZARATE M.D. [address] Work Phone: Comment on above:Testing for SARS-CoV-2 by RT-PCR This test was developed and its performance characteristics determined by [employer] (BD) and validated at the [facility]. This test has not been FDA [...] the authorization is terminated or revoked sooner.PERFORMED BY:[address] [place] [address] [place] [place]NSONRHINEL[place], [place] [phone] MEDICAL DIRECTORVITOR ZARATE M.D. 06-21-2021 NoteFR COVID-19 FRNegative (Normal)Range:Negative Comments:Testing for SARS-CoV-2 by RT-PCR This test was developed and its performance characteristics determined by [employer] (BD) and validated at the [facility]. This test has not been FDA [...] the authorization is terminated or revoked sooner.PERFORMED BY:[place] [address] [address] Y[address] [phone] MEDICAL DIRECTORVITOR ZARATE M.D. [address] Work Phone: Comment on above:Testing for SARS-CoV-2 by RT-PCR This test was developed and its performance characteristics determined by [employer] (BD) and validated at the [facility]. This test has not been FDA [...] the authorization is terminated or revoked sooner.PERFORMED BY:[address] [place] [address] [address] OL[address] [place] [id number] MEDICAL DIRECTORVITOR ZARATE M.D. 06-21-2021 NoteFR COVID-19 [facility]Negative (Normal)Range:Negative Comments:Testing for SARS-CoV-2 by RT-PCR This test was developed and its performance characteristics determined by [employer] (BD) and validated at the [facility]. This test has not been FDA [...] the authorization is terminated or revoked sooner.PERFORMED BY:[place] [address] [address] YOST [id number] MEDICAL DIRECTORVITOR ZARATE M.D. [facility] [address] [place] Work Phone: Comment on above:Testing for SARS-CoV-2 by RT-PCR This test was developed and its performance characteristics determined by [employer] (BD) and validated at the [facility]. This test has not been FDA [...] the authorization is terminated or revoked sooner.PERFORMED BY:[place] [place] [address] [address] OL[address] [place] [id number] MEDICAL DIRECTORVITOR ZARATE M.D. 06-21-2021 NoteFR COVID-19 [facility]:Negative Comments:Testing for SARS-CoV-2 by RT-PCR This test was developed and its performance characteristics determined by [employer] (BD) and validated at the [facility]. This test has not been FDA [...] the authorization is terminated or revoked sooner.PERFORMED BY:[place] [address] [address] [place] [id number] MEDICAL DIRECTORVITOR ZARATE M.D. [address] Work Phone: Comment on above:Testing for SARS-CoV-2 by RT-PCR This test was developed and its performance characteristics determined by [employer] ([employer]) and validated at the [facility]. This test has not been FDA [...] the authorization is terminated or revoked sooner.PERFORMED BY:[address] [place] [address] [address] [place] [place] [phone] MEDICAL DIRECTORVITOR ZARATE M.D. 06-21-2021 NoteFR COVID-19 [facility]Negative (Normal)Range:Negative Comments:Testing for SARS-CoV-2 by RT-PCR This test was developed and its performance characteristics determined by [employer] (BD) and validated at the [facility]. This test has not been FDA [...] the authorization is terminated or revoked sooner.PERFORMED BY:[address] [address] [address] [place], [place] [phone] MEDICAL DIRECTORVITOR ZARATE M.D. [address] Work Phone: Comment on above:Testing for SARS-CoV-2 by RT-PCR This test was developed and its performance characteristics determined by [employer] ([employer]) and validated at the [facility]. This test has not been FDA [...] the authorization is terminated or revoked sooner.PERFORMED BY:[address] [address] [address] [place], [place] [phone] MEDICAL DIRECTORVITOR ZARATE M.D. 06-21-2021 NoteFR COVID-19 [facility]Range:Negative Comments:Testing for SARS-CoV-2 by RT-PCR This test was developed and its performance characteristics determined by [employer] (BD) and validated at the [facility]. This test has not been FDA [...] the authorization is terminated or revoked sooner.PERFORMED BY:[address] [id number] MEDICAL DIRECTORVITOR ZARATE M.D. -[place] [address] [place] Work Phone: Comment on above:Testing for SARS-CoV-2 by RT-PCR This test was developed and its performance characteristics determined by [employer] (BD) and validated at the [facility]. This test has not been FDA [...] the authorization is terminated or revoked sooner.PERFORMED BY:[facility] [place], [place] [phone] MEDICAL DIRECTORVITOR ZARATE M.D. Chief complaint Narrative - ReportedLESA GOLDEN is being seen for a cardiovascular evaluation of atrial fibrillation.YQ-Qfhviiepwu-Myyudi Work Phone: Chief complaint Narrative - ReportedLESA GOLDEN is being seen for a cardiovascular evaluation of atrial fibrillation. ZN-Btemsftcvs-JWB Francis [address] [place] Work Phone: Consult note Author Jimena Smith [facility] September 02, 2022 2:58pm Note Date/Time September 02, 2022 2 :53pm [facility] [address] [place] [address] Cardiology Consult Note Signed Patient: Lesa Golden MR#: [id number] : 1940 Acct:[id number] Age/Sex: 81 / F Adm Date: 3 Loc: Room: [address] [place] [address] Type: ADM IN Attending Dr: Jay Ceja DO Copies to: DO Jimena Carias MD, [facility] Jay Ceja DO~ Cardiology HPI History [...] Social History Comments: independent living at the [facility] Medications and Allergies Allergies fentanyl Allergy (Verified [...] x10E3/uL Lymph # (Auto) 1.6 (1.00-4.8) x10E3/uL [place]field # (Auto) 0.5 (0.0-0.8) x10E3/uL Eos # [...] ml @ 600 mls/hr IV BOLUS ONE Rx#:[id number] Amiodarone 360Mg-*D5w* 360 mg 200 / 200 200 / 400 200 / 400 In 200 ml @ 1 MG/MIN 33.333 mls /hr IV .Q6H KWAN Rx#:[id number] Oral 100 / 100 Other: # Voids [...] (primary) hypertension Documented By: Jimena Smith MD, [facility] 3 1452 Signed By: <Electronically signed by [facility] Jimena Smith> 09/02/[address] [facility] Work Phone: Discharge summary Author Izzy Capps [facility] January 20, 2024 3:42pm Note Date/Time January 20, 2024 2:55p m [facility] [address] [place] [address] Discharge Summary Signed Patient: Lesa Golden MR#: [id number] : 1940 Acct:[id number] Age/Sex: 83 / F Adm Date: 4 Loc: Room: [address] [place] [address]: Izzy Capps MD Copies to: [...] 1 mg tablet 1 mg PO QHS Kqrg-Pshx-Ipsa(vit A,C-biotin) 2,500 unit-100 mg-2,500 mcg capsule 1 [...] 30 Days Qty: 60 12RF Follow Up: [facility] [Provider Group] (Call office on Sunday to schedule follow-up with [facility]. ) Chester العلي, [Primary Care Provider] - (Call office on [...] signed by Izzy Capps MD> 01/20/24 1542 [facility] Work Phone: Evaluation noteNo assessment information available [facility] Work Phone: Evaluation noteNo InformationNothe rehabilitation institute of [facility] [employer] Other Evaluation note* Diagnosis Onset Date Resolution Status Atrial fibrillation with rapid ventricular response acute CHF (congestive heart failure) acute Dysphagia acute Dyspnea on exertion acute Hypertension acute Sick sinus syndrome acute Ventricular tachycardia acut e Weakness [facility] Work Phone: Evaluation note* Diagnosis Onset Date Resolution Status Atrial fibrillation with rapid ventricular response acute CHF (congestive heart failure) acute Dysphagia acute Dyspnea on exertion acute HTN (hypertension), benign a cute Hypertension acute Left ventricular systolic dysfunction, NYHA class 2 acute Sick sinus syndrome acute Ventricular tachycardia acut e Weakness [facility] Work Phone: Evaluation note* Diagnosis Onset Date Resolution Status Atrial fibrillation with rapid ventricular response acute CHF (congestive heart failure) acute Dysphagia acute Dyspnea on exertion acute HTN (hypertension), benign a cute Hypertension acute Left ventricular systolic dysfunction, NYHA class 2 acute Sick sinus syndrome acute Ventricular tachycardia acut e Weakness acute Atrial fibrillation with rapid ventricular response acute Syncope acute [facility] Work Phone: Evaluation note* Diagnosis [...] dysfunction, NYHA class 2 acute Syncope acute [facility] Work Phone: Evaluation note* Diagnosis [...] acute Syncope acute Atrial fibrillation, persistent acute [facility] Work Phone: Evaluation note* Diagnosis Onset Date Resolution Status Anticoagulated acute Atrial fibrillation with rapid ventricular response acute Dyspnea on exertion acute Hypertension acute Left ventricular systolic dysfunction, NYHA class 2 acute Syncope acute Atrial fibrillation, persistent acute [facility] Work Phone: Evaluation note* Diagnosis Persistent [...] Dyspnea, unspecified type documented in this encounter [facility] Work Phone: Evaluation note* Diagnosis Chronic diastolic heart failure (CMS/HCC) Chronic diastolic heart failure Essential hypertension, benign Dyspnea, unspecified type documented in this encounter [facility] Work Phone: Evaluation note* Diagnosis Chronic diastolic heart failure (CMS/HCC) Chronic diastolic heart failure Essential hypertension, benign Dyspnea, unspecified type documented in this encounter [facility] Work Phone: Evaluation note* Diagnosis Persistent atrial fibrillation (CMS/HCC)- Primary Atrial fibrillation 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) Chronic diastolic heart failure (CMS/HCC) Chronic diastolic heart failure Essential hypertension, benign Mixed hyperlipidemia Pacemaker Cardiac pacemaker in situ Sinus bradycardia Other specified cardiac dysrhythmias Single vessel coronary artery disease Coronary atherosclerosis of unspecified type of vessel, shishmaref ira or graft documented in this encounter [facility] Work Phone: Evaluation note* Diagnosis Onset Date Resolution Status 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) acute Hypercholesterolemia acute Lumbar spondylosis acute Obstructive sleep apnea acut e Paroxysmal atrial fibrillation acute Primary hypertension acute Stage 3a chronic kidney disease acute [facility] Work Phone: Evaluation note* Diagnosis Onset Date Resolution Status 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) acute Hypercholesterolemia acute Lumbar spondylosis acute Obstructive sleep apnea acut e Paroxysmal atrial fibrillation acute Primary hypertension acute Stage 3a chronic kidney disease acute Atrial fibrillation with RVR acute 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) acute Stage 3a chronic kidney disease acute [facility] Work Phone: Evaluation note* Diagnosis [...] hernia noneacti ve Nausea & vomiting noneactive [facility] Work Phone: evaluation note* Diagnosis Onset Date [...] hernia noneacti ve Nausea & vomiting noneactive Acute on chronic heart failu re with preserved ejection fraction (HFpEF) acute Obstructive sleep apnea acut e Paroxysmal atrial fibrillation acute Primary hypertension acute Stage 3a chronic kidney disease acute Hx of hiatal hernia noneacti ve [facility] Work Phone: History general Narrative - Reported* Type Description Date Medical History fibromyalgia Medical History chronic pain Medical History hypertension Surgical History hernia 2014 Surgical History foot surgery Surgical History cardiac pacemeker Surgical History appendectomy Hospitalization History hospitalization in every 24. Depression with treatment of ECT Hospitalization History no history of suicide at tempt Hospitalization History no history of trauma and substance abuse [employer] Other His[employer]py general Narrative - Reported* Type Description Date [...] substance abuse Hospitalization History SEE SURGICAL HX [employer] Other Hisghqu general Narrative - Reported* Type Description Date [...] substance abuse Hospitalization History SEE SURGICAL HX [employer] Other History of Present illness Narrative* Patient [...] testing * 6. Follow-up with pacemaker clinic [facility] [address] DO Work Phone: History of [...] the above has been addressed by her tool hardener Dr. Mota. She reports she underwent esophageal dilatation not too long ago. Her recent device check and EKG today demonstrate maintenance of sinus rhythm. Recent laboratory data showed creatinine 1.6. Previous echocardiogram showed LV systolic function in the normal range and a previous stress test was negative in [place]. * Assessment * 1. Persistent atrial fibrillation [...] exercise and try to lose some weight [facility] [address] DO Work Phone: History of Present [...] I reviewed her pacemaker check with her [facility] [address] DO Work Phone: History of Present [...] advised her to restrict her salt intake [employer] Work Phone: History of Present illness Narrative* [...] advised her to restrict her salt intake [facility] Work Phone: History of Present illness Narrative* [...] advised her to restrict her salt intake [facility] Work Phone: Hospital Discharge instructions Additional Instructions Speech therapy recommendations: *Take pills whole with water *Sit upright at 90 degrees during all oral intake *Sit upright for 30 minutes after meals and snacks Dietitian recommendations: *Boost plus, 1 container, [facility] Work Phone: Hospital Discharge instructions Additional Instructions You are scheduled for an EKG at /[facility] Office on 09/27/2022 at 1:00pm [facility] Work Phone: Progress note Author Jay Ceja [facility] September 02, 2022 2:42pm Note Date/Time September 02, 2022 1 :43pm [facility] [address] [place] [address] Hospitalist Progress Note Signed Patient: Lesa Golden MR#: [id number] : 1940 Acct:[id number] Age/Sex: 81 / F Adm Date: 3 Loc: Room: [address] [place] [address] Type: ADM IN Attending Dr: Jay Ceja [...] signed by Jay Ceja DO> 09/02/[address] [facility] Work Phone: Reason for referral (narrative)* Consultation (Routine) - Authorized Specialty Diagnoses / Procedures Referred By Ashtyn dobson Referred To Contact Cardiology Diagnoses 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) Pacemaker Sinus bradycardia Debbie Mac MD [address], [address] [place] [address] Referral ID Status Reason Start Date Expiration Date Visits Requested Visits Authorized [id number] Authorized Specialty Services Required 09/19/2023 09/18/2024 1 1 * Cardiovascular (Routine) - Authorized Specialty Diagnoses / Procedures Referred By Ashtyn dobson Referred To Contact Diagnoses Persistent atrial fibrillation (CMS/HCC) Procedures ECG 12 Lead Debbie Mac MD [address] [place] [address] Referral ID Status Reason Start Date Expiration Date V isits Requested Visits Authorized [id number] Authorized 09/19/2023 09/18/2024 1 1 * Consultation (Routine) - Authorized Specialty Diagnoses / Procedures Referred By Ashtyn dobson Referred To Contact Cardiology Diagnoses Persistent atrial fibrillation (CMS/HCC) 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) Chronic diastolic heart failure (CMS/HCC) Procedures Follow Up In Cardiology Debbie Mac MD [address] [place] [address] 2, [address] [place] [address] Debbie Mac MD [address] [facility] 2, [address] [place] [address] Referral ID Status Reason Start Date Expiration Date V isits Requested Visits Authorized [id number] Authorized 09/19/2023 09/18/2024 1 1 [facility] Work Phone: Summary Purpose Family History No [...] brain Unknown father Unknown Not Specified Unknown Relationship Condition Age at Onset Recorded Date/T [place] father Heart & renal diseas e, hypertensive, with heart fail/chron kidney dis Unknown Depression Unknown sister Heart disease Unknown mother Neoplasm of brain Unknown father Unknown mother Unknown Advance Directives No Advanced Directives Records Found Advance Directive Response Recorded Date/ Time Advance Directives No June 25, 2020 12:57pm Advance Directive Response Recorded Date/ Time Advance Directives No June 25, 2020 11:57am Hospital Course Note MR#: [id number] I [facility] Pt. Name: Lesa Golden Admitted: 07/26/2020 Discharged: [...] Mac MD to review order sent to [facility] for pft ast tsh onlyLESA GOLDEN [...] She was recently in the hospital [facility] for Afib and was taken off Metoprolol [...] Hx of hiatal hernia Nausea & vomiting Chief Complaint lumbar stenosis w/ n erve claudication SSS 3 month f/U (LEFT MESSAGE TO MOVE APPT) SOB, A-fib Amb Documentation hospital follow up hospital follow up Reason for Visit Chronic [...] Hx of hiatal hernia Nausea & vomiting Acute on chronic heart failure with preserved ejection fraction (HFpEF) Obstructive sleep apnea Paroxysmal atrial fibrillation Primary hypertension Stage 3a chronic kidney disease Hx of hiatal hernia Chief Complaint lumbar stenosis w/ n erve claudication SSS 3 month f/U (LEFT MESSAGE TO MOVE APPT) SOB, A-fib Amb Documentation hospital follow up hospital follow up R11.2 Reason for Visit Chronic heart failur e [...] Hx of hiatal hernia Nausea & vomiting Acute on chronic heart failure with preserved ejection fraction (HFpEF) Obstructive sleep apnea Paroxysmal atrial fibrillation Primary hypertension Stage 3a chronic kidney disease Hx of hiatal hernia Reason for Referral Specialty Diagnoses / Procedures Referred By Awaac t Referred To Contact Cardiology Diagnoses Chronic diastolic heart failure (CMS/HCC) Essential hypertension, benign Dyspnea, unspecified type Procedures Transthoracic Echo (TTE) Complete TX ECHO TRANSTHORC R-T 2D W/WO M-MODE REC F-UP/LMTD TX DOP ECHOCARD COLOR FLOW VELOCITY MAPPING TX DOP ECHOCARD PULSE WAVE W/SPECTRAL F-UP/LMTD STD Debbie Mac MD [address] [place] [address] 2, [address] [address] [address] [place] [phone] Referral ID Status Reason Start Date Expiration Date Visits Requested Visits Authorized [id number] Pending Review Perform Procedure 11/27/2023 1 1 Specialty Diagnoses / Procedures Referred By Ashtyn t Referred To Contact Cardiology Diagnoses Persistent atrial fibrillation (CMS/HCC) 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) Chronic diastolic heart failure (CMS/HCC) Essential hypertension, benign Procedures Follow Up In Cardiology Debbie Mac MD [address] [place] [address], [address] [address] Referral ID Status Reason Start Date Expiration Date V isits Requested Visits Authorized [id number] Authorized 05/31/2023 11/27/2023 1 1 Specialty Diagnoses / Procedures Referred By Ashtyn t Referred To Contact Diagnoses Persistent atrial fibrillation (CMS/HCC) 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) Procedures ECG 12 Lead Debbie Mac MD [address] [place] [address], [address] [address] Referral ID Status Reason Start Date Expiration Date V isits Requested Visits Authorized [id number] Pending Review 05/31/2023 11/27/2023 1 1 Additional Source Comments INFORMATION SOURCE (unrecogn ized section and content) DATE CREATED AUTHOR 08/08/2020 [facility] DATE CREATED AUTHOR AUTHOR'S ORGANIZ ATION 10/10/2021 Wily Hernadez [facility] DATE CREATED AUTHOR AUTHOR'S ORGANIZ ATION 12/28/2022 [facility] DATE CREATED AUTHOR AUTHOR'S ORGANIZ ATION 01/04/2023 [facility] DATE CREATED AUTHOR AUTHOR'S ORGANIZ ATION 01/30/2023 [employer] DATE CREATED AUTHOR AUTHOR'S ORGANIZ ATION 03/09/2023 [facility] DATE CREATED AUTHOR AUTHOR'S ORGANIZ ATION 09/10/2023 [facility] DATE CREATED AUTHOR AUTHOR'S ORGANIZ ATION 01/16/2024 [facility] EPIC DATE CREATED AUTHOR AUTHOR'S ORGANIZ ATION 01/23/2024 [facility] DATE CREATED AUTHOR AUTHOR'S ORGANIZ ATION 02/10/2024 [facility] DATE CREATED AUTHOR AUTHOR'S ORGANIZ ATION 02/19/2024 [facility] Care Teams (unrecognized sec tion [...] DO Primary Care Provider Active Indy Rolon PA-C Emergency Provider Active Jay Ceja , DO Admit Provider, Attending Pr ovider Active Team Status: Inactive Member Role Status Dates Chester العلي , DO Primary Care Provider Active Indy Rolon PA-C Emergency Provider Active Jay Ceja , DO [...] MD Other Provider Active Cristiana Dior , [facility] Other Provider Active Yessy Ackerman MD Other Provider Active Sam Dukes , DO Attending Provider Active Team Status: Inactive Member Role Status Dates Chester Tyson , DO Primary Care Provider, Attending Pr ovider Active Team Status: Inactive Member Role Status Dates Chester العلي , DO Primary Care Provider Active Wilbur Watson , DO Attending Provider Active Ophthalmic Technician Apprentice Relationship Specialty Start Date End Date Chester العلي, DO [address] [place] [phone] PCP - General 08/20/99 Ophthalmic Technician Apprentice Relationship Specialty Start Date End Date Chester العلي DO [address] [place] [address] [place] [address] PCP - General Internal Medicine 08/09/23 Ophthalmic Technician Apprentice Relationship Specialty Start Date End Date Chester العلي DO [address] [place] [address] [place] [address] PCP - General Internal Medicine 08/09/23 Team [...] Attending Provider Active Start: 2023 End: 2023 Ophthalmic Technician Apprentice Relationship Specialty Start Date End Date Chester العلي DO [address] [place] [address] [facility] [place] [address] PCP - General Internal Medicine 08/09/23 Debbie Mac MD [address] [facility] 2, [facility] [address] [place] [address] Consulting Physician Cardiology 09/10/23 Team Status: Inactive [...] Start: M ay 2023 Cristiana Dior , [facility]- Other Provider Active Sta rt: January [...] Other Provider Active Start: M ay 2023 End: January 20, 2024 Anoop Zhang MD Other Provider Active Start: January 18, 2024 End: January 20, 2024 Isra Pedro MD Other Provider Active Start: Elvira tang 2023 End: January 20, 2024 Cristiana Dior , [facility] Other Provider Active Sta rt: January 18, 2024 End: January 20, 2024 Ophthalmic Technician Apprentice Relationship Specialty Start Date End Date Chester العلي DO [address] [place] [address] PCP - General Internal Medicine 08/09/23 Debbie Mac MD [address], [address] [place] [address] Consulting Physician Cardiology 09/10/23 Team Status: Active Member Role Status Dates Chester العلي DO Primary Care Provider Active Start: January 21, 2024 MICHAEL Joseph Attending Provider Active St art: January 21, 2024 Team Status: Inactive Member Role Status Dates Chester العلي DO Primary Care Provide r, Attending Provider Active Start: January 28, 2024 End: January 28, 2024 Team Status: Active Member Role Status Dates Chester العلي DO Primary Care Provider Active Start: February 07, 2024 Juanito Barragan DO Attending Provider Active S tart: February 07, 2024 Team Status: Active Member Role Status Dates Chester العلي DO Primary Care Provide r, Attending Provider Active Start: February 08, 2024 Team Status: Inactive Member Role Status Dates Chester العلي DO Primary Care Provide r, Attending Provider Active Start: February 15, 2024 End: February 15, 2024 Team Status: Inactive Member Role Status Dates Chester العلي DO Primary Care Provide r, Attending Provider Active Start: February 18, 2024 End: February 18, 2024 Goals (unrecognized section and content) Goals [...] Procedures ECG 12 Lead Debbie Mac MD [address] [place] [address], [address] [address] Referral ID Status Reason Start Date Expiration Date V isits Requested Visits Authorized [id number] Pending Review 05/31/2023 11/27/2023 1 1 Specialty Diagnoses / Procedures Referred By Ashtyn dobson Referred To Contact Cardiology Diagnoses Chronic diastolic heart failure (CMS/HCC) Essential hypertension, benign Dyspnea, unspecified type Procedures Transthoracic Echo (TTE) Complete TX ECHO TRANSTHORC R-T 2D W/WO M-MODE REC F-UP/LMTD TX DOP ECHOCARD COLOR FLOW VELOCITY MAPPING TX DOP ECHOCARD PULSE WAVE W/SPECTRAL F-UP/LMTD STD Debbie Mac MD [address] [place] [address], [address] [address] [place] [id number] Referral ID Status Reason Start Date Expiration Date Visits Requested Visits Authorized [id number] Authorized Perform Procedure 11/27/2023 1 1 Reason Comments Follow-up 4 month Specialty Diagnoses / Procedures Referred By Ashtyn dobson Referred To Contact Cardiology Diagnoses Persistent atrial fibrillation (CMS/HCC) 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) Chronic diastolic heart failure (CMS/HCC) Essential hypertension, benign Procedures Follow Up In Cardiology Debbie Mac MD [address] [place] [address], [address] [address] Referral ID Status Reason Start Date Expiration Date V isits Requested Visits Authorized [id number] Authorized 05/31/2023 11/27/2023 1 1 Reason Comments ekg visit Specialty Diagnoses / Procedures Referred By Contac t Referred To Contact Diagnoses Dyspnea, unspecified type Persistent atrial fibrillation (Multi) Procedures ECG 12 Lead Debbie Mac MD [address] [facility] 2, [facility] [address] [place] [address] Referral ID Status Reason Start Date Expiration Date V isits Requested Visits Authorized [id number] Authorized 01/17/2024 01/16/2025 1 1 FOR RECORDS [...] BE BASED ON THE PRIMARY CLINICAL RECORDS. [employer] [facility]. provides no warranty or guarantee of the accuracy or completeness of information in this document.
[2024-02-22 00:49] VITALS: BP 126/71; PULSE 104; O2SAT 93
== END 2024-02-22 01:31 | disposition home or self-care (01) ==
PROVIDERS: Emergency Provider Internal Medicine; PCP Internal Medicine
DX: S09.90XA Unspecified injury of head, initial encounter (principal); W18.30XA Fall on same level, unspecified, initial encounter
CPT/HCPCS: 70450; 72125; 99284

== ENCOUNTER 2024-03-13 13:15 | Outpatient (OUT) | payer OTHER, SELFPAY ==
--- NOTE | 2024-03-13 13:37 | P.CN_ITS ---
Consult Note: HPI Data of Consult Patient: known to practice within the last 3 years Consult date: 10/15/23 Requesting Physician: Velvet Jimenez NP Primary Care Provider: Chester Mehta, Consult Narrative Reason for consult: Low back pain, right leg pain Narrative: 83yof who presents for evaluation. Longstanding low back pain with weakness into bilateral legs for many years, now worsening in past several months. Denies provoking event. Currently utilizes [place], which helps mildly. Cannot take NSAIDs because of blood thinner. Has engaged in >6 weeks of provider directed home exercise program, with little benefit. Most recent MRI showing multilevel DDD, lumbar facet arthropathy, and neuroforaminal stenosis. pain today 6/10 increasing to 10/10 with standing walking and activity. NATALEE 18% today. Increase in low back pain radiating into right hip and leg with heaviness weakness and aching. cannot tolerate gabapentin due to side effects. Cannot stand/walk for even 10 minutes at this time. cc:: CC: Velvet Jimenez NP Review of Systems ROS Status of ROS 10 or more systems reviewed and unremark able except as noted in history and below Musculoskeletal Reports: back pain and extremity pain [facility] Medical History (Updated 02/22/24 @ 01:11 by Daniel Berman MD) Diastolic heart failure ?I50.30 - Unspecified diastolic (congestive) heart failure (ICD-10) Depression ?F32.A - Depression, unspecified (ICD-10) Diaphragmatic hernia ?K44.9 - Diaphragmatic hernia without obstruction or gangrene (ICD-10) Lumbar stenosis with neurogenic claudication ?M48.062 - Spinal stenosis, lumbar region with neurogenic claudication (ICD- 10) Lumbar spondylosis ?M47.816 - Spondylosis without myelopathy or radiculopathy, lumbar region (ICD-10) Sacroiliitis ?M46.1 - Sacroiliitis, not elsewhere classified (ICD-10) S/P extracorporeal shock wave therapy ?Z98.890 - Other specified postprocedural states (ICD-10) Kidney stone ?N20.0 - Calculus of kidney (ICD-10) Low back pain ?M54.50 - Low back pain, unspecified (ICD-10) Neck pain ?M54.2 - Cervicalgia (ICD-10) Fibromyalgia ?M79.7 - Fibromyalgia (ICD-10) Hiatal hernia ?K44.9 - Diaphragmatic hernia without obstruction or gangrene (ICD-10) SOB (shortness of breath) ?R06.02 - Shortness of breath (ICD-10) High cholesterol ?E78.00 - Pure hypercholesterolemia, unspecified (ICD-10) Hypertension ?I10 - Essential (primary) hypertension (ICD-10) Surgical History Hx laparoscopic cholecystectomy ?Z90.49 - Acquired absence of other specified parts of digestive tract (ICD- 10) S/P hernia repair ?Z98.890 - Other specified postprocedural states (ICD-10) ?Z87.19 - Personal history of other diseases of the digestive system (ICD-10) Social History Highest level of school completed/degree received: high school graduate Meds Home Medications and Allergies Home Medications ?Medication ?Instructions ?Recorded ?Confirmed ?Type acetaminophen 325 mg capsule 325 mg PO Q6H PRN pain 10/15/23 02/07/24 History (Tylenol) atorvastatin 40 mg tablet 40 mg PO .QHS 10/15/23 02/07/24 History calcium 600 mg capsule 600 mg PO QDAY 10/15/23 02/07/24 History cholecalciferol (vitamin D3) 125 125 mcg PO DAILY 10/15/23 02/07/24 History mcg (5,000 unit) tablet (Vitamin D3) rivaroxaban 15 mg tablet (Xarelto) 15 mg PO .qhs 10/15/23 02/07/24 History ropinirole 1 mg tablet 1 mg PO .HS 10/15/23 02/07/24 History escitalopram oxalate 10 mg tablet 10 mg PO .QHS 02/07/24 02/07/24 History fluocinonide 0.05 % topical See Rx Instructions topical 02/07/24 02/07/24 History solution .COMPLEX furosemide 20 mg tablet 20 mg PO .QD 02/07/24 02/07/24 History sotalol 120 mg tablet 120 mg PO BID 02/07/24 02/07/24 History diltiazem HCl 180 mg 180 mg PO DAILY #30 caps 02/08/24 Rx capsule,extended release 24 hr Allergies Allergy/AdvReac Type Severity Reaction Status Date / Time Sulfa (Sulfonamide Allergy Mild ITCHING Verified 02/21/24 23:38 Antibiotics) fentanyl Allergy Unknown Unknown Verified 02/21/24 23:38 Exam Constitutional Documenting provider has reviewed patient's vital signs: yes Common normals: no apparent distress, oriented x3, healthy appearing, alert and well nourished General appearance: cooperative HENCA Common normals: normocephalic, hearing grossly normal bilaterally and moist oral mucous membranes Head and scalp: normocephalic Eye Common normals: PERRL Pupil: PERRL Neck & C-Spine Common normals: full ROM General: normal visual inspection Chest Common normals: inspection of chest normal Respiratory Common normals: normal respiratory effort, no retractions and no use of accessory muscles Effort & inspection: labored Cardio Common normals: regular rate and regular rhythm GI Common normals: Normal to inspection, nondistended, normoactive bowel sounds present, soft to palpation and non-tender Back & Pelvis Lumbar spine/lower back: ROM limited, pain with ROM and straight leg raise positive right Sacroiliac joints: SI joint(s) abnormal Other: right SIJ positive lizzy(patricks), gaenslens, thigh thrust, compression test decreased sensation following right L4,5,S1 strength 4/5 in RLE 5/5 in LLE Extremity Common normals: normal to inspection and full ROM Neuro Common normals: oriented x3, CN's II-XII intact bilaterally, moves all extremities, no focal motor deficits, no sensory deficits noted and deep tendon reflexes 2+ bilaterally Sensorium/orientation: alert Gait (neuro): antalgic Motor exam: no movement abnormalities noted and strength abnormal Psych Common normals: mental status grossly normal, thought process normal, cooperative, affect normal, speech normal and activity/motor behavior normal Appearance: grossly normal Speech: normal speech Thought process: normal thought process Results Additional Findings Additional findings: If on a controlled substance or opioids, I have checked an [place]AR[place] report on this patient and there are no aberrancies noted in the prescribing history.??If on a controlled substance or opioid a drug screen was completed and reviewed within the last year, and if there has not been a drug screen completed we ordered one today to monitor higher risk, state monitored pain medication use. As part of providing excellent, safe, comprehensive care, the following was completed at our patient's visit: 1. A medication reconciliation and review to ensure accurate knowledge of current/active medications, including asking our patients to inform us about any [id number]-[id number] medications or herbal remedies/nutritional supplements/alternative remedies. 2. A review to specifically ensure our patients have had annual screening for screening for depression, screening for tobacco use, and screening for unhealthy alcohol use. For concerning screenings had a discussion with the patient, provided patient education, and recommended follow-up with primary care provider when appropriate. If patient noted with a risk of falling, they received education on strength, gait, and balance training to prevent future risk of falling. Assessment and Plan Assessment and Plan (1) Lumbar stenosis with neurogenic claudication: (2) Sacroiliitis: (3) Lumbar spondylosis: Plan right L4-5 L5-S1 TFESI under fluoroscopy right SIJ injection under fluoroscopy continue f/u with PCP regarding frequent emesis continue f/u with cardiology f/u after injections complete
== END 2024-03-13 13:16 | disposition home or self-care (01) ==
LOC: PM 13:15
PROVIDERS: PCP Internal Medicine; Visit Provider Nurse Practitioner
DX: M48.062 Spinal stenosis, lumbar region with neurogenic claudication (principal); M46.1 Sacroiliitis, not elsewhere classified; M47.816 Spondylosis without myelopathy or radiculopathy, lumbar region
CPT/HCPCS: G0463

== ENCOUNTER 2024-03-21 04:54 | Emergency (ER) | payer OTHER, SELFPAY ==
[2024-03-21] VITALS (60 sets, daily range): BP systolic 79–157; BP diastolic 44–94; PULSE 88–94; TEMP 36.6; O2SAT 88–98; BMI 24.8
--- NOTE | 2024-03-21 05:03 | ECG_ITS ---
[facility] Test Date: 2024-03-21 Pat Name: AUSTIN GOLDEN Department: Room: - Gender: Female Parts Analyst: : 1940 Requested By: Chester العلي Order Number: [id number] Reading MD: CHESTER العلي Measurements Intervals [place] Rate: 92 P: 124 NH: 228 QRS: 4 QRSD: 80 T: 199 QT: 352 QTc: 402 Interpretive Statements 1220 Rapid atrial rhythm 2231 First degree AV block 5234 Left ventricular hypertrophy with repolarization abnormality 9150 abnormal ECG Compared to ECG 02/07/2024 18:48:31 No significant change Electronically Signed On 03-21-2024 6:49:34 EDT by CHESTER العلي
--- NOTE | 2024-03-21 05:03 | ED_ITS ---
HPI HPI - General Adult General Chief complaint: Dizziness Stated complaint: OTHER Time Seen by Provider: 03/21/24 05:02 Source: patient Mode of arrival: ambulance Limitations: no limitations History of Present Illness HPI narrative: 83-year-old female presents for chest pain and dizziness and sweating. This has been an ongoing issue for apparently weeks or months. She was scheduled to have cardioversion for A-fib this morning at another hospital. She always has chest pain, it never goes away and she has had that for weeks or months. She is always short of breath and she has had that also for weeks or months. She came in today primarily because she got sweaty and that also has an ongoing issue. She was having sweating episodes yesterday as well. She cannot quantify the pain but describes it as a pressure. The chest pain is not new. Related Data Home Medications ?Medication ?Instructions ?Recorded ?Confirmed acetaminophen 325 mg capsule 325 mg PO Q6H PRN pain 10/15/23 03/21/24 (Tylenol) atorvastatin 40 mg tablet 40 mg PO .QHS 10/15/23 03/21/24 calcium 600 mg capsule 600 mg PO QDAY 10/15/23 02/07/24 cholecalciferol (vitamin D3) 125 125 mcg PO DAILY 10/15/23 03/21/24 mcg (5,000 unit) tablet (Vitamin D3) rivaroxaban 15 mg tablet (Xarelto) 15 mg PO .qhs 10/15/23 03/21/24 ropinirole 1 mg tablet 1 mg PO .HS 10/15/23 03/21/24 escitalopram oxalate 10 mg tablet 10 mg PO .QHS 02/07/24 03/21/24 fluocinonide 0.05 % topical See Rx Instructions topical 02/07/24 02/07/24 solution .COMPLEX furosemide 20 mg tablet 20 mg PO .QD 02/07/24 03/21/24 sotalol 120 mg tablet 120 mg PO BID 02/07/24 03/21/24 digoxin 125 mcg (0.125 mg) tablet 03/21/24 sotalol 80 mg tablet mg 03/21/24 Previous Rx's ?Medication ?Instructions ?Recorded diltiazem HCl 180 mg 180 mg PO DAILY #30 caps 02/08/24 capsule,extended release 24 hr Allergies Allergy/AdvReac Type Severity Reaction Status Date / Time fentanyl Allergy Unknown Unknown Verified 08/02/24 04:58 Opioid HPI Opioid Management Most Recent Opioid Data: Last Pain Scale 3 01/28/24 10:59 Last MAR Pain Assessment 03/21/24 05:54 Last ORT Total Score 1 02/07/24 15:37 Last ORT Risk Category Low Risk 02/07/24 15:37 Review of Systems ROS Narrative A ten point review of systems is negative except as noted above. PFSH PFSH Medical History (Updated 03/21/24 @ 06:21 by Jordi Barragan MD) Diastolic heart failure ?I50.30 - Unspecified diastolic (congestive) heart failure (ICD-10) Depression ?F32.A - Depression, unspecified (ICD-10) Diaphragmatic hernia ?K44.9 - Diaphragmatic hernia without obstruction or gangrene (ICD-10) Lumbar stenosis with neurogenic claudication ?M48.062 - Spinal stenosis, lumbar region with neurogenic claudication (ICD- 10) Lumbar spondylosis ?M47.816 - Spondylosis without myelopathy or radiculopathy, lumbar region (ICD-10) Sacroiliitis ?M46.1 - Sacroiliitis, not elsewhere classified (ICD-10) S/P extracorporeal shock wave therapy ?Z98.890 - Other specified postprocedural states (ICD-10) Kidney stone ?N20.0 - Calculus of kidney (ICD-10) Low back pain ?M54.50 - Low back pain, unspecified (ICD-10) Neck pain ?M54.2 - Cervicalgia (ICD-10) Fibromyalgia ?M79.7 - Fibromyalgia (ICD-10) Hiatal hernia ?K44.9 - Diaphragmatic hernia without obstruction or gangrene (ICD-10) SOB (shortness of breath) ?R06.02 - Shortness of breath (ICD-10) High cholesterol ?E78.00 - Pure hypercholesterolemia, unspecified (ICD-10) Hypertension ?I10 - Essential (primary) hypertension (ICD-10) Surgical History Hx laparoscopic cholecystectomy ?Z90.49 - Acquired absence of other specified parts of digestive tract (ICD- 10) S/P hernia repair ?Z98.890 - Other specified postprocedural states (ICD-10) ?Z87.19 - Personal history of other diseases of the digestive system (ICD-10) Social History Highest level of school completed/degree received: high school graduate Exam Narrative Exam Narrative: Nurses note and vital signs reviewed and patient is not hypoxic. General: The patient appears well and in no apparent distress. Patient is resting comfortably on cart. Skin: Warm, dry, no pallor noted. There is no rash noted. Head: Normocephalic, atraumatic Eye: Normal conjunctiva, no drainage Ears, Nose, Mouth, and Throat: oral mucosa is moist. Nares patent. Cardiovascular: Regular rate and rhythm, not tachycardic Respiratory: Patient is in no distress, no accessory muscle use, lungs are clear to auscultation, no wheezing, rales or rhonchi Back: non-tender GI: Soft and nontender Musculoskeletal: The patient has no evidence of calf tenderness, no pitting edema, symmetrical pulses noted bilaterally Neurological: A&O, normal speech Psychiatric: Cooperative Constitutional Vital Signs, click to edit/add: Last Vital Signs Temp 97.8 F 03/21/24 04:54 Pulse 90 03/21/24 05:20 Resp 19 03/21/24 05:20 BP 125/76 03/21/24 04:57 Pulse Ox 96 03/21/24 05:00 O2 Del Method Room Air 03/21/24 04:54 Course Vital Signs Vital signs: Vital Signs Temperature 97.8 F 03/21/24 04:54 Pulse Rate 93 H 03/21/24 04:54 Respiratory Rate 16 03/21/24 04:54 Blood Pressure 125/76 03/21/24 04:54 Pulse Oximetry 98 03/21/24 04:54 Oxygen Delivery Method Room Air 03/21/24 04:54 Temperature 97.8 F 03/21/24 04:54 Pulse Rate 90 03/21/24 05:20 Respiratory Rate 19 03/21/24 05:20 Blood Pressure 125/76 03/21/24 04:57 Pulse Oximetry 96 03/21/24 05:00 Oxygen Delivery Method Room Air 03/21/24 04:54 Medical Decision Making MDM Narrative Medical decision making narrative: Initial troponin is 97. Previous ones have been in the 70s. Her renal function is not completely normal and a repeat is ordered and pending and the patient is signed out to Dr. Pavon at change of shift. Differential Diagnosis Differential Diagnosis: Angina, unstable angina, myocardial infarction, atypical chest pain Lab Data Lab results reviewed: Yes I reviewed the patient's lab results Labs: Lab Results 03/21/24 Range/Units 05:05 WBC 6.8 (4.0-11.0) 10^3/uL RBC 3.80 L (4.20-5.40) 10^6/uL Hgb 12.6 (12.0-16.0) g/dL Hct 37.3 (36.0-48.0) % MCV 98.2 (81.0-99.0) fL MCH 33.2 (26.7-34.0) pg MCHC 33.8 (29.9-35.2) g/dL RDW 15.0 (11.0-15.0) % Plt Count 222 (150-450) 10^3/uL MPV 10.0 (9.5-13.5) fL Neut % (Auto) 64.6 (43.0-75.0) % Lymph % (Auto) 26.9 (20.5-60.0) % [place] % (Auto) 6.9 (1.7-12.0) % Eos % (Auto) 0.7 L (0.9-7.0) % Baso % (Auto) 0.3 (0.2-2.0) % Neut # (Auto) 4.4 (1.4-6.5) 10^3/uL Lymph # (Auto) 1.8 (1.2-3.8) 10^3/uL [place] # (Auto) 0.5 (0.3-0.8) 10^3/uL Eos # (Auto) 0.1 (0.0-0.7) 10^3/uL Baso # (Auto) 0.0 (0.0-0.1) 10^3/uL Abs Immat Gran (auto) 0.04 H (0.00-0.03) 10^3/uL Imm/Tot Granulo (auto) 0.6 H (0.0-0.5) % Sodium 139 (136-145) mmol/L Potassium 3.9 (3.5-5.1) mmol/L Chloride 105 (98-107) mmol/L Carbon Dioxide 25.7 (21.0-32.0) mmol/L Anion Gap 12.2 BUN 26.0 H (7.0-18.0) mg/dL Creatinine 1.16 H (0.55-1.02) mg/dL Est GFR ( Amer) 54 L (>=60) Est GFR (Non-Af Amer) 45 L (>=60) BUN/Creatinine Ratio 22.4 Glucose 127 H (74-106) mg/dL Calcium 9.0 (8.5-10.1) mg/dL Troponin I High Sens 97.0 H* (4.0-51.3) pg/mL Imaging Data Chest x-ray: Radiologist's impression: ITS Impressions Chest X-Ray 03/21/24 05:03 IMPRESSION: 1. Low lung volume examination with trace amount of bibasilar atelectasis or possibly infiltrates. 2. Stable cardiomegaly. Electronically authenticated by: JUANA MICHAELS Date: 03/21/2024 05:34 ECG Data Attestation: I personally reviewed and interpreted this ECG as follows: (EKG on my interpretation shows sinus rhythm with a rate of 92) Discharge Plan Discharge Patient Disposition: Still a Patient
--- NOTE | 2024-03-21 05:03 | XR_ITS ---
[address] [address] Patient Name: AUSTIN GOLDEN MRN: [id number] date: 1940 Sex: F Assigned Patient Location: ER Current Patient Location: ED.MAIN Accession/Order Number: [id number] Exam Date: 03/21/2024 05:18 Report Date: 03/21/2024 05:34 At the request of: DENAE SEE Procedure: XR chest 1V EXAMINATION: XR chest 1V HISTORY: CP , dyspnea, weakness, sweating, chest pressure COMPARISON: XR chest 02/08/2024 FINDINGS: LUNGS: Expanded lungs with minimal haziness within lung bases. VASCULATURE: No increased pulmonary vasculature. PLEURA: No pneumothorax, effusion, or pleural thickening. CARDIAC: Stable mild cardiomegaly and cardiac pacer. MEDIASTINUM: No visible mass or adenopathy. BONES: No fracture or visible bone lesion. OTHER: Negative. XR/XR chest 1V IMPRESSION: 1. Low lung volume examination with trace amount of bibasilar atelectasis or possibly infiltrates. 2. Stable cardiomegaly. Electronically authenticated by: JUANA MICHAELS Date: 03/21/2024 05:34
--- NOTE | 2024-03-21 05:14 | PC.NURSE ---
[facility] called and dining room supervisor made aware that pt was not going to show up for her 6am appt (was suppose to be there at 6a for an oblation at 830am
--- NOTE | 2024-03-21 05:14 | PC.NURSE ---
Pt presents to ER via EMS for what was reported as shortness of breath and chest pressure Pt states she was supposed to have a cardioversion at [facility] at 0630 this morning She states she started getting weak when standing and sweating last night and this carried on through this morning when she woke up at 3am Pt stated she was concerned maybe she was having a heart attack When Dr. Barragan came to bedside pt stated the chest pressure and shortness of breath is not new, but she started sweating and queezy when on her feet Pt then asked for water This nurse took her a cup of ice water and pt stated she was concerned she couldn't drink due to maybe having her cardioversion done later today This nurse explained to pt that she is not in a-fib at this time and would not need cardioverted Pt then asked if she can go home and what test's we were running This nurse educated pt and her family at bedside on the current care plan Pt then denied further needs or questions at this time
[2024-03-21 05:23] LABS: Basophils Percent Auto 0.3 % (0.2-2.0); Eosinophils Absolute Auto 0.1 10^3/uL (0.0-0.7); Eosinophils Percent Auto 0.7 % (0.9-7.0); Hematocrit 37.3 % (36.0-48.0); Hemoglobin 12.6 g/dL (12.0-16.0); Immature Granulocytes Abs Auto 0.04 10^3/uL (0.00-0.03); Immature Granulocytes Pct Auto 0.6 % (0.0-0.5); Lymphocytes Absolute Auto 1.8 10^3/uL (1.2-3.8); Lymphocytes Percent Auto 26.9 % (20.5-60.0); Mean Corpuscular HGB Conc 33.8 g/dL (29.9-35.2); Mean Corpuscular Hemoglobin 33.2 pg (26.7-34.0); Mean Corpuscular Volume 98.2 fL (81.0-99.0); Monocytes Absolute Auto 0.5 10^3/uL (0.3-0.8); Monocytes Percent Auto 6.9 % (1.7-12.0); Neutrophils Absolute Auto 4.4 10^3/uL (1.4-6.5); Neutrophils Percent Auto 64.6 % (43.0-75.0); Platelet Count 222 10^3/uL (150-450); White Blood Count 6.8 10^3/uL (4.0-11.0)
--- OUTSIDE RECORDS SUMMARY | 2024-03-21 05:26 | XMS_ITS | CCD ---
Author Organization [facility] Inform ion Partnership [facility] Care Team Providers Care Supervisor Rolling Room Name Role Phone CHESTER العلي Primary Care Unavailable JELANI SORIA Attending Unavailable JELANI SORIA Admitting Unavailable SELF, REFERRED Referring Unavailable AL Procedure Practitioner Unavailab SANJUANA Maier AM Surgeon Unavailable TANNER HERRERA Surgeon Unavailable AL Procedure Practitioner Unavailab JELANI Eid Surgeon Unavailable AL Procedure Practitioner Unavailab Chester Buckley E Unavailable Unavailable Unavailable DO Chester العلي Primary Care Provider MD Debbie Mac Attending Provider John Mims Unavailable [phone] DO Chester العلي Primary Care Provider MD [...] Provider MD Isra Pedro Other Provider [facility] Cristiana Rosen Other Provider MD Yessy Ackerman [...] MD Kenny Porter Other Provider Jose David QuachMARGOTN Dee Gomez Other Provider MD Bety Haile Other Provider MD Anoop Zhang Other Provider MD Isra Pedro Other Provider [facility] Cristiana Rosen Other Provider MD Yessy Ackerman Other Provider [phone] DO Sam Dukes Attending Provider Tyson, DO Briggs Attending Provider Rachel Larios Unavailable DO Wilbur Watson Attending Provider DO Chester العلي Primary Care Provider [phone] DO aJy Ceja Admit Provider MD Debbie Mac Attending [...] Attending Unavailable LARIOS, DR RACHEL Hahn Consulting Damien العلي, DO Briggs Primary Care Provider DO Wilbur Watson Attending Provider [phone] Jose, Dr. Chen Referring Unavaila ble Trabnuria, Dr. Chen Attending Unavaila ble Tyson, Dr. Chester Sanders Primary Care Unavai lable Jose, Dr. Chen Referring Unavaila ble Ball, Dr. Chester [facility] Unavai lable Jose, Dr. Chen Attending Unavaila ble Jose, Dr. Chen Referring Unavaila ble MD MAXWELL MEDRANO Attending Unavailabl e Tyson, Dr. Chester [facility] Unajerodi richie العلي, Dr. Chester [facility] Yasmeenvakrysten Smith, Dr. Jimena Reynolds Attending Yasmeen vailable Sarah, Dr. Jimena Reynolds Attending Yasmeen vailable Tyson, Dr. Chester [facility] Unavai labshant Smith, Dr. Jimena Reynolds Attending Yasmeen vailable Tyson, Dr. Chester [facility] Unavai richie العلي, Dr. Chester [facility] Unavai labshant العلي, Dr. Chester [facility] Unavai labshant Mac, Dr. Chen Attending Unavaila ble Jose, Dr. Chen Referring Unavaila ble Tyson, Dr. Chester [facility] Unavai labshant العلي, Dr. Chester [facility] Unavai lable Jose, Dr. Chen Attending Unavaila ble Tyson, Dr. Chester [facility] Unavai labshant العلي, Dr. Chester [facility] Yasmeenvai labshant Mac, Dr. Chen Attending Unavaila ble Tyson, Dr. Chester [facility] Yasmeenvai labshant العلي, Dr. Chester [facility] Yasmeenvai labshant Smith, Dr. Jimena Reynolds Attending Yasmeen vailable Tyson, Dr. Chester [facility] Yasmeenvai labshant Smith, Dr. Jimena Reynolds Attending Yasmeen vailable Ball, Dr. Chester [facility] Unavai lable Ball, Dr. Chester [facility] Unavai lable Traboulssi, Dr. Chen Attending Unavaila ble Ball, Dr. Chester [facility] Unavai lable Traboulssi, Dr. Chen Attending Unavaila ble Ball, Dr. Chester [facility] Unavai lable Traboulssi, Dr. Chen Attending Unavaila ble Ball, Dr. Chester [facility] Unavai lable Traboulssi, Dr. Chen Attending Unavaila ble Ball, Dr. Chester [facility] Unavai lable Traboulssi, Dr. Chen Attending Unavaila ble Traboulssi, Dr. Chen Referring Unavaila ble Ball, Dr. Chester [facility] Unavai lable Traboulssi, Dr. Chen Attending Unavaila ble Ball, Dr. Chester [facility] Unavai lable Traboulssi, Dr. Chen Attending Unavaila ble Traboulssi, Dr. Chen Referring Unavaila ble Traboulssi, Dr. Chen Referring Unavaila ble Ball, Dr. Chester [facility] Unavai lable Traboulssi, Dr. Chen Attending Unavaila ble Traboulssi, Dr. Cehn Referring Unavaila ble Ball, Dr. Chester [facility] Unavai lable Traboulssi, Dr. Chen Attending Unavaila ble Ball, DO Chester Primary Care Provider MD Debbie Mac Attending Provider Chester العلي DO Primary Care Provider Sabina Garcia Unavailable Chester العلي DO Primary Care Provider DEBBIE MAC Referring Unavailable CHESTER العلي Primary Care Unavailable DO Chester العلي Primary Care Provider [phone] MD Debbie Mac Attending Provider Chester العلي DO Primary Care Provider Debbie Mac MD Unavailable DO Chester العلي Primary Care Provider MD Debbie Mac Attending Provider MD Yesica Astudillo Attending Provider MD Christopher Richardson Attending Provider DESMOND MACIAS Attending Unavailable DO Chester العلي Primary Care Provider VINCENT Mendez Emergency Provider MD Izzy Capps Admit Provider MD Izzy Capps Attending Provider [phone] ROSA Bennett Other Provider Unavailable DO Javed Dee Other Provider MD Jimena Smith Other Provider MD Christopher Richardson Other Provider MD Debbie Mac Other Provider MD Kenny Porter Other Provider VIRGINIA Quach Other Provider MD Bety Haile Other Provider MD Anoop Zhang Other Provider MD Isra Pedor Other Provider [facility] Cristiana Rosen Other Provider [phone] Chester العلي DO Primary Care Provider Wilda MUIR, Yesica Arcos Attending Unavailable Wilda MUIR, Andrius Isrrael Attending Unavailable Wilda MUIR, Naterius Arcos Attending Unavailable DO Chester العلي Attending Provider Chester العلي Attending Unavailable Chester العلي Admitting Unavailable Chester العلي Primary Care Unavailable Chester العلي Primary Care Unavailable Stephanie Bennett Consulting Unavailable Izzy Capps Admitting Unavailable Izzy Capps Attending Unavailable Javed Dee Consulting Unavailable Jimena Smith Consulting Unavailable Christopher Richardson Consulting Unavail able Traboulssi, Moollief Consulting Unavailable Kenny Porter Consulting Unavailab Dee Jacobs Consulting Unavailable Bety Haile Consulting Unavailable Anoop Zhang Consulting Unavailab Isra Lutz Consulting Unavailable Cristiana Dior Consulting Unavailable Traboulssi, Mourhaf Admitting Unavailable Traboulssi, Mourhaf Attending Unavailable Ball, Chester Primary Care Unavailable Traboulssi, Mourhaf Admitting Unavailable Traboulssi, Mourhaf Attending Unavailable Ball, Chester Primary Care Unavailable Traboulssi, Mourhaf Attending Unavailable Ball, Chester Primary Care Unavailable Traboulssi, Mourhaf Admitting Unavailable Giedraitis, Andrius Attending Unavailable Ball, Chester Primary Care Unavailable Giedraitis, Andrius Admitting Unavailable Ball, Chester Primary Care Unavailable McGChristopher givens Admitting Unavail able Christopher Richardson Attending Unavail able TRABOULSSI, MOURHAF Attending Unavailable BALL, CHESTER E Primary Care Unavailable TRABOULSSI, MOURHAF Attending Unavailable TRABOULSSI, MOURHAF Referring Unavailable BALL, CHESTER E Primary Care Unavailable TRABOULSSI, MOURHAF Attending Unavailable TRABOULSSI, MOURHAF Referring Unavailable BALL, CHESTER E Primary Care Unavailable TRABOULSSI, MOURHAF Referring Unavailable BALL, CHESTER E Primary Care Unavailable TRABOULSSI, MOURHAF Attending Unavailable BALL, CHESTER E Primary Care Unavailable MAXWELL MEDRANO Attending Unavailable MEDRANO, MAXWELL N Referring Unavailable BALL, CHESTER E Primary Care Unavailable MEDRANO, MAXWELL N Attending Unavailable BALL, CHESTER E Primary Care Unavailable MEDRANO, MAXWELL N Referring Unavailable Allergies Allergy Classification Reported Allergen(s) Allergy Type Date of Onset Reaction(s) Facility (1 source) apixaban Drug Allergy 07-26-20 20 [facility] (20 sources) Sulfonamides (Antibiotic); Translations: [SULFA (SULFONAMIDE ANTIBIOTICS)] Drug allergy (disorder) 07-29-20 13 Itching [facility] (20 sources) Sulfonamides (Antibiotic); Translations: [Sulfa Drugs] Allergy to drug (finding) [place] [address] DO Work Phone: (20 sources) fentaNYL; Translations: [fentanyl] Drug Allergy 08-22-19 22 Other [facility] (20 sources) Sulfonamides (Antibiotic) Propensity to adverse reactions Unknown [place] Other (1 source) [facility]enta[facility]L Drug Allergy 08-06-20 20 [facility] (1 source) patient allergy list reviewed by nurse or physicia Propensity to adverse reactions 04-15-20 19 Comment:Done [place] Other (13 sources) Substance with sulfonamide structure and antibacterial mechanism of action (substance) Drug allergy 04-28-20 23 Unknown [place] Other (1 source) [facility]enta[facility] Drug Allergy 02-15-20 24 [facility] (1 source) Sulfonamides (Antibiotic) Drug allergy (disorder) 02-15-20 [facility] Medications Current Medications Medication Drug Class(es) [...] 2021 12:29pm take 1 capsule by mo [facility] once daily Acidophilus Oral Capsule TAKE [...] 1:00am January 20, 2024 2:49pm Vit A-Vit L-Hcwabv-Epqn-Copper (Xgzk-Upvt-Lvdr(Vit A,C-Biotin)) 2,500 unit-100 mg-2,500 mcg capsule (5 sources) Start: 01-18-2024 take 1 capsule by mouth once daily Vit A-Vit G-Tzriew-Rraw-Copper (Gubg-Rihj-Qiip(Vit A,C-Biotin)) 2,500 unit-100 mg-2,500 mcg capsule Active [...] 2021 12:28pm take 1 tablet by nghia every four to six hours as needed [...] And Nails (Biotin)) 10,000 mcg Tablet,Chewable Discontinued 90680 MCG PO Every morning February 26, 2023 12:00am November 24, 2023 10:06am Start: 02-26-2023 take 1 tablet by nghia th once daily in the morning Biotin (Hair, Skin And Nails (Biotin)) 10,000 mcg Tablet,Chewable Active 84473 MCG PO Every morning February 25, 2023 11:00pm Start: 02-26-2023 take 1 tablet by nghia th once daily in the morning Biotin (Hair, Skin And Nails (Biotin)) 10,000 mcg Tablet,Chewable Active 61028 MCG PO Every morning February 26, 2023 [...] once daily in the morning Ginkgo-Choline Bitartrate ([employer] Memory Support) 120 mg- 110 mg Tablet Discontinued 1 TAB PO Every morning February 26, 2023 12:00am November 24, 2023 10:07am Start: 02-26-2023 take 1 tablet by nghia th once daily in the morning Ginkgo-Choline Bitartrate ([facility] Memory Support) 120 mg- 110 mg Tablet Active 1 TAB PO Every morning February 25, 2023 11:00pm Start: 02-26-2023 take 1 tablet by nghia th once daily in the morning Ginkgo-Choline Bitartrate ([facility]) 120 mg- 110 mg [...] Onset: 3 05-31-2023 Chronic Chronic kidney disease (7 sources) Chronic kidney disease; Translations: [Chronic kidney [...] [Coronary atherosclerosis of unspecified type of vessel, [place] or graft] Onset: 3 04-28-2023 Chronic Deficiency [...] current use of drug therapy; Translations: [Other senior living (current) drug therapy] Episodic Other aftercare (1 source) High risk drug monitoring status; Translations: [retirement (current) use of opiate analgesic] Episodic Other aftercare (3 sources) Other long term care social worker (current) drug therapy; Translations: [Other senior living (current) drug therapy] Onset: 3 Episodic Other aftercare (2 sources) Encounter for therapeutic drug level monitoring; Translations: [Encounter for therapeutic drug level monitoring] Onset: 07-11-202 4 Episodic Other and ill-defined heart disease (20 [...] pulmonary nodule] Episodic Other lower respiratory disease (3 sources) Shortness of breath; Translations: [Shortness of breath] Onset: 3 Episodic Other nervous system disorders (1 source) [...] disorders (2 sources) Body mass index (BMI) 31.0-31.9, adult; Translations: [Body mass index (BMI) 31.0-31.9, adult] Onset: 4 Chronic Other nutritional; endocrine; and metabolic disorders (2 sources) Body mass index (BMI) 30.0-30.9, adult; Translations: [Body mass index (BMI) 30.0-30.9, adult] Onset: 4 Chronic Other nutritional; endocrine; and metabolic disorders [...] unclassified (1 source) Asymptomatic menopausal state Episodic Spondylosis; intervertebral disc disorders; other back problems (20 sources) Lumbar spondylosis; Translations: [Spondylosis without myelopathy or radiculopathy, lumbar region] Onset: 9 11-24-2023 Chronic Syncope (20 sources) Syncope; Translations: [Syncope and collapse] 09-17-2022 Episodic Transient cerebral ischemia (1 source) Transient global amnesia; 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] Onset: 4 Chronic Unclassified (8 sources) Other persistent atrial fibrillation; Translations: [Other [...] pacemaker pulse generator [battery]] Onset: 3 Unclassified (2 sources) Longstanding persistent atrial fibrillation; Translations: [Longstanding persistent atrial fibrillation (Multi)] Onset: 4 Urinary tract infections (20 sources) Escherichia coli [...] Resolved: 04-04-2022 Episodic Other aftercare (7 sources) 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; Translations: [Long-term (current) use of anticoagulants] Onset: 04-28-2023 09-21-2022 Episodic Other aftercare (5 sources) Taking high risk medication; Translations: [Other long term care social worker (current) drug therapy] Onset: 04-28-2023 04-28-2023 Episodic [...] specified health status] Onset: 04-28-2023 04-28-2023 Episodic Residual codes; unclassified (2 sources) Other specified health status; Translations: [Other specified health status] Onset: 04-28-2023 Episodic Spondylosis; intervertebral disc disorders; other back problems (2 sources) Low back pain; Translations: [Low back pain, unspecified] Onset: 01-25-2019 Episodic Unclassified (20 sources) Never smoked tobacco; [...] Reference Range Facility CT abdomen pelvis w conon CT abdomen pelvis w [facility] [place] [address] [place] [address] CT Scan Report Signed Patient: Lesa Golden MR#: [id number] 8 : 1940 Acct:[id number] Age/Sex: 83 / F ADM Date: 02/18/24 Loc: CT Room: Type: [facility] Attending Dr: Chester العلي DO Copies [...] through the lung bases again show a trczs-vc-hzlmiypm sized hiatal hernia. There are no contributory [...] Rach Tong M.D.02/18/2024 5:29 PM Dictation Location: [place] [address] Transcribed By: JODI 02/18/241728 Dictated By: Rach Tong MD 02/18/241721 Signed By: 02/18/241728 Normal [facility] Basophils Auto (Bld) [#/Vol] on 02-08-2024 Basophils (Bld) [#/Vol] 0.0 10 3/uL 0.0-0.1 [facility] Basophils/100 WBC Auto (Bld) on 02-08-2024 Basophils/100 WBC (Bld) 0.1 % Low 0.2-2.0 [facility] Eosinophils/100 WBC Auto (Bl d)on 02-08-2024 Eosinophils/100 WBC (Bld) 0.2 % Low 0.9-7.0 [facility] Erythrocyte distribution wid th Auto (RBC) [Ratio]on 02-08-2024 Erythrocyte distribution width (RBC) [Ratio] 13.9 % 11.0-15.0 [facility] Estimated glomerular filtrat ion rate (GFR) non- Americanon 02-08-2024 GFR/1.73 sq M.predicted among non-blacks MDRD (S/P/Bld) [Vol rate/Area] mL/min/{1.73_m2} >=60 [facility] Globulin Calc (S) [Mass/Vol] on 02-08-2024 Globulin (S) [Mass/Vol] 3.0 g/dL [facility] Hematocrit Auto (Bld) [Volum e fraction]on 02-08-2024 Hematocrit (Bld) [Volume fraction] 40.7 % 36.0-48.0 [facility] Hemoglobin [Mass/volume] in Bloodon 02-08-2024 Hemoglobin (Bld) [Mass/Vol] 13.6 g/dL 12.0-16.0 [facility] Laboratory - Chemistry and C hemistry - challengeon 02-08-2024 Albumin [Mass/Vol] 2.8 g/dL Low 3.4-5.0 [facility] ALP [Catalytic activity/Vol] 85 U/L 46-116 [facility] ALT [Catalytic activity/Vol] 32 U/L 14-59 [facility] AST [Catalytic activity/Vol] 20 U/L 15-37 [facility] Bilirubin [Mass/Vol] 0.7 mg/dL 0.2-1.0 [facility] Calcium [Mass/Vol] 9.0 mg/dL 8.5-10.1 [facility] Chloride [Moles/Vol] 103 mmol/L 98-107 [facility] CO2 [Moles/Vol] 27.1 mmol/L 21.0-32.0 [facility] Creatinine [Mass/Vol] 0.82 mg/dL 0.55-1.02 [facility] GFR/1.73 sq M.predicted MDRD (S/P/Bld) [Vol rate/Area] mL/min/{1.73_m2} >=60 [facility] Glucose [Mass/Vol] 122 mg/dL High 74-106 [facility] Potassium [Moles/Vol] 4.6 mmol/L 3.5-5.1 [facility] Protein [Mass/Vol] 5.8 g/dL Low 6.4-8.2 [facility] Sodium [Moles/Vol] 135 mmol/L Low 136-145 [facility] Urea nitrogen [Mass/Vol] 30.0 mg/dL High 7.0-18.0 [facility] Urea nitrogen/Creatinine [Mass ratio] 36.6 mg/mg [facility] Laboratory - Hematology and Cell countson 02-08-2024 Immature granulocytes/100 WBC (Bld) 1.6 % High 0.0-0.5 [facility] Leukocytes [#/volume] correc anne marie for nucleated erythrocytes in Blood by Automated counon 02-08-2024 WBC corrected for nucl RBC Auto (Bld) [#/Vol] 12.9 10 3/uL High 4.0-11.0 [facility] Lymphocytes Auto (Bld) [#/Vo l]on 02-08-2024 Lymphocytes (Bld) [#/Vol] 0.9 10 3/uL Low 1.2-3.8 [facility] Lymphocytes/100 WBC Auto (Bl d)on 02-08-2024 Lymphocytes/100 WBC (Bld) 6.7 % Low 20.5-60.0 [facility] MCH Auto (RBC) [Entitic mass ]on 02-08-2024 MCH (RBC) [Entitic mass] 31.1 pg 26.7-34.0 [facility] MCHC Auto (RBC) [Mass/Vol]on 02-08-2024 MCHC (RBC) [Mass/Vol] 33.4 g/dL 29.9-35.2 [facility] MCV Auto (RBC) [Entitic vol] on 02-08-2024 MCV (RBC) [Entitic vol] 93.1 fL 81.0-99.0 [facility] Monocytes Auto (Bld) [#/Vol] on 02-08-2024 Monocytes (Bld) [#/Vol] 0.6 10 3/uL 0.3-0.8 [facility] Monocytes/100 WBC Auto (Bld) on 02-08-2024 Monocytes/100 WBC (Bld) 4.6 % 1.7-12.0 [facility] Neutrophils Auto (Bld) [#/Vo l]on 02-08-2024 Neutrophils (Bld) [#/Vol] 11.2 10 3/uL High 1.4-6.5 [facility] Neutrophils/100 WBC Auto (Bl d)on 02-08-2024 Neutrophils/100 WBC (Bld) 86.8 % High 43.0-75.0 [facility] No Panel Informationon 02-07 Eosinophils # (Auto) 0.0 10 3/uL 0.0-0.7 [facility] Immature Granulocyte # (Auto) 0.21 10 3/uL High 0.00-0.03 [facility] Platelet mean volume Auto (B ld) [Entitic vol]on 02-08-2024 Platelet mean volume (Bld) [Entitic vol] 10.4 fL 9.5-13.5 [facility] Platelets Auto (Bld) [#/Vol] on 02-08-2024 Platelets (Bld) [#/Vol] 204 10 3/uL 150-450 [facility] RBC Auto (Bld) [#/Vol]on RBC (Bld) [#/Vol] 4.37 10 6/uL 4.20-5.40 [facility] Serum or plasma albumin/glob ulin mass ratioon 02-08-2024 Albumin/Globulin [Mass ratio] 0.9 {ratio} [facility] Serum or plasma anion gap de terminationon 02-08-2024 Anion gap [Moles/Vol] 9.5 mmol/L [facility] Basophils Auto (Bld) [#/Vol] on 02-07-2024 Basophils (Bld) [#/Vol] 0.0 10 3/uL 0.0-0.1 [facility] Basophils/100 WBC Auto (Bld) on 02-07-2024 Basophils/100 WBC (Bld) 0.1 % Low 0.2-2.0 [facility] Eosinophils/100 WBC Auto (Bl d)on 02-07-2024 Eosinophils/100 WBC (Bld) 0.2 % Low 0.9-7.0 [facility] Erythrocyte distribution wid th Auto (RBC) [Ratio]on 02-07-2024 Erythrocyte distribution width (RBC) [Ratio] 14.1 % 11.0-15.0 [facility] Estimated glomerular filtrat ion rate (GFR) non- Americanon 02-07-2024 GFR/1.73 sq M.predicted among non-blacks MDRD (S/P/Bld) [Vol rate/Area] 51 mL/min/{1.73_m2} Low >=60 [facility] Globulin Calc (S) [Mass/Vol] on 02-07-2024 Globulin (S) [Mass/Vol] 3.2 g/dL [facility] Hematocrit Auto (Bld) [Volum e fraction]on 02-07-2024 Hematocrit (Bld) [Volume fraction] 46.3 % 36.0-48.0 [facility] Hemoglobin [Mass/volume] in Bloodon 02-07-2024 Hemoglobin (Bld) [Mass/Vol] 15.3 g/dL 12.0-16.0 [facility] Laboratory - Chemistry and C hemistry - challengeon 02-07-2024 Bilirubin Ql (U) Negative NEGATIVE [facility] Glucose (U) [Mass/Vol] Negative NE[facility]IVE [facility] Ketones Ql (U) Negative NEGATIVE [facility] pH (U) 6.0 [pH] 5.0-9.0 [facility] Specific gravity (U) [Rel density] >=1.030 Abnormal 1.005-1.02 5 [facility] Urobilinogen Qn (U) 1.0 {Sherrell'U}/dL 0.2-1.0 [facility] Albumin [Mass/Vol] 3.1 g/dL Low 3.4-5.0 [facility] ALP [Catalytic activity/Vol] 107 U/L 46-116 [facility] ALT [Catalytic activity/Vol] 38 U/L 14-59 [facility] AST [Catalytic activity/Vol] 19 U/L 15-37 [facility] Bilirubin [Mass/Vol] 0.7 mg/dL 0.2-1.0 [facility] Bilirubin.direct [Mass/Vol] 0.2 mg/dL 0.0-0.2 [facility] Lipase [Catalytic activity/Vol] 66.0 U/L 16.0-77.0 [facility] Natriuretic peptide B (Bld) [Mass/Vol] 1679.0 pg/mL <=1800.0 [facility] Protein [Mass/Vol] 6.3 g/dL Low 6.4-8.2 [facility] Calcium [Mass/Vol] 9.3 mg/dL 8.5-10.1 [facility] Chloride [Moles/Vol] 104 mmol/L 98-107 [facility] CO2 [Moles/Vol] 25.4 mmol/L 21.0-32.0 [facility] Creatinine [Mass/Vol] 1.03 mg/dL High 0.55-1.02 [facility] GFR/1.73 sq M.predicted MDRD (S/P/Bld) [Vol rate/Area] mL/min/{1.73_m2} >=60 [facility] Glucose [Mass/Vol] 137 mg/dL High 74-106 [facility] Potassium [Moles/Vol] 4.6 mmol/L 3.5-5.1 [facility] Sodium [Moles/Vol] 137 mmol/L 136-145 [facility] Urea nitrogen [Mass/Vol] 35.0 mg/dL High 7.0-18.0 [facility] Urea nitrogen/Creatinine [Mass ratio] 34.0 mg/mg [facility] Laboratory - Hematology and Cell countson 02-07-2024 Immature granulocytes/100 WBC (Bld) 1.6 % High 0.0-0.5 [facility] Laboratory - Specimen inform ationon 02-07-2024 Appearance (U) CLEAR CLEAR [facility] Color (U) YELLOW YELLOW [facility] Laboratory - Urinalysison Leukocyte esterase Test strip Ql (U) Negative NEGATIVE [facility] Nitrite Ql (U) Negative NEGATIVE [facility] Protein Ql (U) TRACE mg/dL NEG/TRACE [facility] Leukocytes [#/volume] correc anne marie for nucleated erythrocytes in Blood by Automated counon 02-07-2024 WBC corrected for nucl RBC Auto (Bld) [#/Vol] 18.4 10 3/uL High 4.0-11.0 [facility] Lymphocytes Auto (Bld) [#/Vo l]on 02-07-2024 Lymphocytes (Bld) [#/Vol] 1.0 10 3/uL Low 1.2-3.8 [facility] Lymphocytes/100 WBC Auto (Bl d)on 02-07-2024 Lymphocytes/100 WBC (Bld) 5.4 % Low 20.5-60.0 [facility] MCH Auto (RBC) [Entitic mass ]on 02-07-2024 MCH (RBC) [Entitic mass] 31.0 pg 26.7-34.0 [facility] MCHC Auto (RBC) [Mass/Vol]on 02-07-2024 MCHC (RBC) [Mass/Vol] 33.0 g/dL 29.9-35.2 [facility] MCV Auto (RBC) [Entitic vol] on 02-07-2024 MCV (RBC) [Entitic vol] 93.7 fL 81.0-99.0 [facility] Monocytes Auto (Bld) [#/Vol] on 02-07-2024 Monocytes (Bld) [#/Vol] 1.0 10 3/uL High 0.3-0.8 [facility] Monocytes/100 WBC Auto (Bld) on 02-07-2024 Monocytes/100 WBC (Bld) 5.4 % 1.7-12.0 [facility] Neutrophils Auto (Bld) [#/Vo l]on 02-07-2024 Neutrophils (Bld) [#/Vol] 16.1 10 3/uL High 1.4-6.5 [facility] [facility] Neut[facility]/100 WBC Auto (Bl d)on 02-07-2024 Neutrophils/100 WBC (Bld) 87.3 % High 43.0-75.0 [facility] No Panel Informationon 02-06 Urine Microscopic Review NO [facility] Urine Occult Blood Negative NEGATIVE [facility] Troponin I High Sensitivity 50.2 pg/mL 4.0-51.3 [facility] Comment on above: CUT-OFF POINTS HAVE BEEN [...] IN CONJUNCTIONWITH OTHER DIAGNOSTIC AND CLINICAL INFORMATION. Eosinophils # (Auto) 0.0 10 3/uL 0.0-0.7 [facility] Immature Granulocyte # (Auto) 0.29 10 3/uL High 0.00-0.03 [facility] Platelet mean volume Auto (B ld) [Entitic vol]on 02-07-2024 Platelet mean volume (Bld) [Entitic vol] 10.1 fL 9.5-13.5 [facility] Platelets Auto (Bld) [#/Vol] on 02-07-2024 Platelets (Bld) [#/Vol] 260 10 3/uL 150-450 [facility] RBC Auto (Bld) [#/Vol]on RBC (Bld) [#/Vol] 4.94 10 6/uL 4.20-5.40 [facility] Serum or plasma albumin/glob ulin mass ratioon 02-07-2024 Albumin/Globulin [Mass ratio] 1.0 {ratio} [facility] Serum or plasma anion gap de terminationon 02-07-2024 Anion gap [Moles/Vol] 12.2 mmol/L [facility] ECG 12 Leadon 01-22-2024 Normal sinus rhythm with normal QTc interval [facility] Work Phone: ECG 12 lead ECGon 01-20-2024 ECG 12 lead ECG [facility] [place] [address] Electrocardiograph Report Signed Patient: Lesa Golden MR#: [id number] 8 : 1940 Acct:[id number] Age/Sex: 83 / F ADM Date: 01/18/24 Loc: Room: [address] [place] [address] Type: ADM IN Attending Dr: Izzy Capps [...] Electronic ventricular pacemaker Confirmed by KAVON MUIR [facility] ([id number]) on 01/20/2024 1:20:48 PM Referred By: Electronically Signed By:MARGARITA RICHARDSON MD [facility] Transcribed By: MUS Signed By Christopher Richardson MD 01/20/24 1320 Normal [facility] ECG 12 lead ECGon 01-19-2024 ECG 12 lead ECG [facility] Main [place] [id number] Electrocardiograph Report Signed Patient: Lesa Golden MR#: [id number] 8 : 1940 Acct:[id number] Age/Sex: 83 / F ADM Date: 01/18/24 Loc: Room: [address] [place] [address] Type: DIS IN Attending Dr: Izzy Capps [...] Signed By Debbie Mac MD 0 01/22/24 6893 Normal [facility] ECG 12 lead ECG [facility] Main [place] [id number] Electrocardiograph Report Signed Patient: Lesa Golden MR#: [id number] 8 : 1940 Acct:[id number] Age/Sex: 83 / F ADM Date: 01/18/24 Loc: 3T Room: [address] [place] [address] Type: ADM IN Attending Dr: Izzy Capps [...] replaced Atrial fibrillation Confirmed by [facility] ([id number]) on 01/20/2024 1:20:24 PM Referred By: Electronically Signed By:MARGARITA RICHARDSON MD [facility] Transcribed By: MUS Signed By Christopher Richardson MD 01/20/24 1320 Normal [facility] ECG 12 lead ECG [facility] [place] [address] Electrocardiograph Report Signed Patient: Lesa Golden MR#: [id number] 8 : 1940 Acct:[id number] Age/Sex: 83 / F ADM Date: 01/18/24 Loc: Room: [address] [place] [address] Type: DIS IN Attending Dr: Izzy Capps [...] Mac MD 0 01/22/24 1749 Normal [facility] echo transthoracicon [facility] echo transthoracic [facility] Main [place] [address] [place], [place] [id number] Echocardiogram Signed Patient: Lesa Golden MR#: [id number] 8 : 1940 Acct:[id number] Age/Sex: 83 / F ADM Date: 01/18/24 Loc: Room: [address] [place] [address] Type: ADM IN Attending Dr: Izzy Capps MD Ordering Provider: Christopher Richardson MD Date of Service: 01/19/2409/12/1141 [facility] tran[facility]: chf Copies to: Christopher Richardson MD Weight: 154 lb Performed By: CRISTOPHER Davey BSA: 1.6 m2 BP: 115/68 mmHg HR: 81 Reason For Study: chf History: A-fib., COVID - Nov. 2019, HTN, Family history: CAD, CHF, CKD, SSS, [...] mmHg RAP systole: 5.0 mmHg Transcribed By: SCAliya Performed At: 01/19/24 1236 Signed By: Christopher Richardson MD 01/19/24 1458 Normal [facility] Magnesium [Mass/volume] in S vaughn or PlasmaOrdered By: Izzy Capps on 01-19-2024 Magnesium [Mass/Vol] 1.9 mg/dL Normal 1.9-2.7 [facility] Comment on above: Result Comment: PERF ORMED BY: [place] [address] PATHOLOGIST BREAKFAST COOK VITOR ZARATE M.D. Performed By: #### M G #### [address] Activated partial thrombopla stin time (aPTT) in platelet poor plasma by coagulation aOrdered By: Vic Mendez on 01-18-2024 aPTT Coag (PPP) [Time] 31.3 s 25.1-36.5 [facility] Comment on above: A hematocrit value g reater than 55% may lead to inaccurate results in coagulation testing. Patients having hematocrit values >55% require a special collection tube for coagulation studies. Please contact the laboratory at [phone] for redraw instructions. Alanine aminotransferase [En zymatic activity/volume] in Serum or PlasmaOrdered By: Vic Mendez on 01-18-2024 ALT [Catalytic activity/Vol] 29 U/L Normal 7-52 [facility] Comment on above: Order Comment: ADÁN RiveroNS, REDRAW REQUESTED, NOTIFIED ROSA Vázquez Performed By: #### M G, CMP, PT, PTT, CK, CBC, HS TROP ####[facility] [id number] Albumin [Mass/volume] in Ser um or Plasma by Bromocresol green (BCG) dye binding methoOrdered By: Vic Mendez on 01-18-2024 Albumin BCG dye [Mass/Vol] 3.7 g/dL 3.5-5.7 [facility] Alkaline phosphatase [Enzyma tic activity/volume] in Serum or PlasmaOrdered By: Vic Mendez on 01-18-2024 ALP [Catalytic activity/Vol] 63 U/L Normal 34-104 [facility] Comment on above: Order Comment: ADÁN FALL[place], REDRAW REQUESTED, NOTIFIED ROSA Vázquez Performed By: #### M G, CMP, PT, PTT, CK, CBC, HS TROP ####[address] Aspartate aminotransferase [ Enzymatic activity/volume] in Serum or PlasmaOrdered By: Vic Mendez on 01-18-2024 AST [Catalytic activity/Vol] 17 U/L Normal 13-39 [facility] Comment on above: Order Comment: ADÁN RiveroNS, REDRAW REQUESTED, NOTIFIED ROSA Vázquez Performed By: #### M G, CMP, PT, PTT, CK, CBC, HS TROP ####[place] [address] [place] [id number] [facility] Automated basophil %Ordered By: Vic Mendez on 01-18-2024 Basophils/100 WBC (Bld) 0.5 % Normal . [facility] Comment on above: Performed By: #### M G, CMP, PT, PTT, CK, CBC, HS TROP #### [facility] [address] [place] [address] Automated basophil countOrde red By: Vic Mendez on 01-18-2024 Basophils (Bld) [#/Vol] 0.1 10*3/uL Normal 0.0-0.2 [facility] Comment on above: Result Comment: PERF ORMED BY: [place] [address] PATHOLOGIST BREAKFAST COOK VITOR ZARATE M.D. Performed By: #### M G, CMP, PT, PTT, CK, CBC, HS TROP #### [address] Automated blood monocyte cou ntOrdered By: Vic Mendez on 01-18-2024 Monocytes (Bld) [#/Vol] 0.8 10*3/uL Normal 0.0-0.8 [facility] Comment on above: Performed By: #### M G, CMP, PT, PTT, CK, CBC, HS TROP #### [facility] [address] [place] [address] Automated eosinophil %Ordere d By: Vic Mendez on 01-18-2024 Eosinophils/100 WBC (Bld) 1.2 % Normal . [facility] Comment on above: Performed By: #### M G, CMP, PT, PTT, CK, CBC, HS TROP #### [facility] [address] [place] [address] Automated eosinophil countOr dered By: Vic Mendez on 01-18-2024 Eosinophils (Bld) [#/Vol] 0.1 10*3/uL Normal 0.0-0.45 [facility] Comment on above: Performed By: #### M G, CMP, PT, PTT, CK, CBC, HS TROP #### [address] Automated monocyte %Ordered By: Vic Mendez on 01-18-2024 Monocytes/100 WBC (Bld) 7.6 % Normal . [facility] Comment on above: Performed By: #### M G, CMP, PT, PTT, CK, CBC, HS TROP #### [facility] [address] Automated neutrophil %Ordere d By: Vic Mendez on 01-18-2024 Neutrophils/100 WBC (Bld) 81.5 % Normal . [facility] Comment on above: Performed By: #### M G, CMP, PT, PTT, CK, CBC, HS TROP #### [facility] [address] Bilirubin.total [Mass/volume ] in Serum or PlasmaOrdered By: Vic Mendez on 01-18-2024 Bilirubin [Mass/Vol] 0.9 mg/dL Normal 0.3-1.0 [facility] Comment on above: Order Comment: SAMPL E QNS, REDRAW REQUESTED, NOTIFIED ROSA Vázquez Performed By: #### M G, CMP, PT, PTT, CK, CBC, HS TROP ####[place] [address] [address] Calcium [Mass/volume] in Ser um or PlasmaOrdered By: Vic Mendez on 01-18-2024 Calcium [Mass/Vol] 9.2 mg/dL Normal 8.6-10.3 [facility] Comment on above: Order Comment: SAMPL E QNS, REDRAW REQUESTED, NOTIFIED ROSA Vázquez Performed By: #### M G, CMP, PT, PTT, CK, CBC, HS TROP ####[place] [address] [address] Carbon dioxide, total [Moles /volume] in Serum or PlasmaOrdered By: Vic Mendez on 01-18-2024 CO2 [Moles/Vol] 23.4 mmol/L Normal 21.0-31.0 [facility] Comment on above: Order Comment: SAMPL E QNS, REDRAW REQUESTED, NOTIFIED ROSA Vázquez Performed By: #### M G, CMP, PT, PTT, CK, CBC, HS TROP ####[facility] [id number] Chloride [Moles/volume] in S vaughn or PlasmaOrdered By: Vic Mendez on 01-18-2024 Chloride [Moles/Vol] 108 mmol/L High 98-107 [facility] Comment on above: Order Comment: SAMPL E QNS, REDRAW REQUESTED, NOTIFIED ROSA Vázquez Performed By: #### M G, CMP, PT, PTT, CK, CBC, HS TROP ####[facility] Complete Blood Count Auto Di ffon 01-18-2024 Mean Corpuscular HGB Conc 33.7 g/dL Normal 32.0-35.0 [facility] Comment on above: Performed By: #### M G, CMP, PT, PTT, CK, CBC, HS TROP #### [facility] [address] Monocytes/100 WBC (Bld) 18.06 % Normal 0.00-20.00 [facility] Comment on above: Performed By: #### M G, CMP, PT, PTT, CK, CBC, HS TROP #### [facility] [address] NRBC% 0.1 /100{WBC} Normal 0-0.5 [facility] Comment on above: Performed By: #### M G, CMP, PT, PTT, CK, CBC, HS TROP #### [facility] [address] Comprehensive Metabolic Pane violeta 01-18-2024 Albumin [Mass/Vol] 3.7 g/dL Normal 3.5-5.7 [facility] Comment on above: Order Comment: SAMPL E QNS, REDRAW REQUESTED, NOTIFIED ROSA Vázquez Performed By: #### M G, CMP, PT, PTT, CK, CBC, HS TROP ####[facility] [id number] Creatinine Clr Calc Pharmacy 40.09 Normal [facility] Comment on above: Order Comment: SAMPL E QNS, REDRAW REQUESTED, NOTIFIED ROSA Vázquez Performed By: #### M G, CMP, PT, PTT, CK, CBC, HS TROP ####[place] [address] [place] [address] [facility] GFR/1.73 sq M.predicted MDRD (S/P/Bld) [Vol rate/Area] 59.440 mL/min/{1.73_m2} Normal [facility] Comment on above: Order Comment: ADÁN FALLON, REDRAW REQUESTED, NOTIFIED ROSA Vázquez Performed By: #### M G, CMP, PT, PTT, CK, CBC, HS TROP ####[place] [address] [place] [address] [facility] Creatine kinase [Enzymatic a ctivity/volume] in Serum or PlasmaOrdered By: Vic Mendez on 01-18-2024 CK [Catalytic activity/Vol] 31 U/L Normal 30-223 [facility] Comment on above: Performed By: #### M G, CMP, PT, PTT, CK, CBC, HS TROP ####[place] [id number] [facility] Creatinine [Mass/volume] in Serum or PlasmaOrdered By: Vic Mendez on 01-18-2024 Creatinine [Mass/Vol] 0.96 mg/dL Normal 0.60-1.20 [facility] Comment on above: Order Comment: ADÁN F[place], REDRAW REQUESTED, NOTIFIED ROSA Vázquez Performed By: #### M G, CMP, PT, PTT, CK, CBC, HS TROP ####[place] [id number] [facility] ECG 12 lead ECGon 01-18-2024 ECG 12 lead ECG [facility] Main [place] [address] [place] [address] Electrocardiograph Report Signed Patient: Lesa Golden MR#: [id number] 8 : 1940 Acct:[id number] Age/Sex: 83 / F ADM Date: 01/18/24 Loc: Room: [address] [place] [address] Type: ADM IN Attending Dr: Izzy Capps [...] Anterior infarct present Confirmed by KAVON MUIR [facility] ([id number]) on 01/20/2024 1:20:19 PM Referred By: Electronically Signed By:MARGARITA RICHARDSON MD, FACC Transcribed By: MUS Signed By Christopher Richardson MD 01/20/24 1320 Normal [facility] Erythrocyte distribution wid th [Ratio] by Automated countOrdered By: Vic Mendez on 01-18-2024 Erythrocyte distribution width (RBC) [Ratio] 14.1 % Normal 11.9-15.3 [facility] Comment on above: Performed By: #### M G, CMP, PT, PTT, CK, CBC, HS TROP #### [facility] [address] Erythrocytes [#/volume] in B lood by Automated countOrdered By: Vic Mendez on 01-18-2024 RBC (Bld) [#/Vol] 4.96 10*6/uL Normal 3.60-5.00 [facility] Comment on above: Performed By: #### M G, CMP, PT, PTT, CK, CBC, HS TROP #### [facility] [address] [place] [address] [place] Glucose [Mass/volume] in Ser um or PlasmaOrdered By: Vic Mendez on 01-18-2024 Glucose [Mass/Vol] 102 mg/dL High 70-100 [facility] Comment on above: ADA recommended refe rence rangeRandom Glucose Reference Range is dependent on time and content of last meal. Glucose of more than 200 mg/dL in a nonstressed, ambulatory subject supports the diagnosis of Diabetes Mellitus. Order Comment: ADÁN FALLON, REDRAW REQUESTED, NOTIFIED ROSA Vázquez Result Comment: [place] Glucose Reference Range is dependent on time and content of last meal. Glucose of more than 200 mg/dL in a nonstressed, ambulatory subject supports the diagnosis of Diabetes Mellitus. ADA recommended reference range Performed By: #### M G, CMP, PT, PTT, CK, CBC, HS TROP ####[facility] [id number] Hematocrit [Volume Fraction] of Blood by Automated countOrdered By: Vic Mendez on 01-18-2024 Hematocrit (Bld) [Volume fraction] 45.9 % Normal 34.0-46.4 [facility] Comment on above: Performed By: #### M G, CMP, PT, PTT, CK, CBC, HS TROP #### [facility] [address] Hemoglobin [Mass/volume] in BloodOrdered By: Vic Mendez on 01-18-2024 Hemoglobin (Bld) [Mass/Vol] 15.5 g/dL High 11.8-15.4 [facility] Comment on above: Performed By: #### M G, CMP, PT, PTT, CK, CBC, HS TROP #### [facility] [address] INR in Platelet poor plasma by Coagulation assayOrdered By: Vic Mendez on 01-18-2024 INR Coag (PPP) [Relative time] 1.5 {INR} Normal [facility] Comment on above: INR Therapeutic Rang e [...] valves: 3 - 4.5 Performed By: #### M G, CMP, PT, PTT, CK, CBC, HS TROP ####[facility] [id number] Leukocytes [#/volume] correc anne marie for nucleated erythrocytes in Blood by Automated counOrdered By: Vic Mendez on 01-18-2024 WBC corrected for nucl RBC Auto (Bld) [#/Vol] 10.4 10*3/uL 3.8-11.6 [facility] Leukocytes [#/volume] in Blo od by Automated countOrdered By: Vic Mendez on 01-18-2024 WBC (Bld) [#/Vol] 10.4 10*3/uL Normal 3.8-11.6 [facility] Comment on above: Performed By: #### M G, CMP, PT, PTT, CK, CBC, HS TROP #### [facility] [address] [place] [address] [place] Lymphocytes [#/volume] in Bl ood by Automated countOrdered By: Vic Mendez on 01-18-2024 Lymphocytes (Bld) [#/Vol] 1.0 10*3/uL Normal 1.00-4.8 [facility] Comment on above: Performed By: #### M G, CMP, PT, PTT, CK, CBC, HS TROP #### [facility] [address] [place] [address] [place] Lymphocytes/100 leukocytes i n Blood by Automated countOrdered By: Vic Mendez on 01-18-2024 Lymphocytes/100 WBC (Bld) 9.2 % Normal . [facility] Comment on above: Performed By: #### M G, CMP, PT, PTT, CK, CBC, HS TROP #### [facility] [address] [place] [address] [place] MCH [Entitic mass] by Automa anne marie countOrdered By: Vic Mendez on 01-18-2024 MCH (RBC) [Entitic mass] 31.2 pg Normal 24.7-34.3 [facility] Comment on above: Performed By: #### M G, CMP, PT, PTT, CK, CBC, HS TROP #### [facility] [address] [place] [address] MCHC Auto (RBC) [Mass/Vol]Or dered By: Vic Mendez on 01-18-2024 MCHC (RBC) [Mass/Vol] 33.7 g/dL 32.0-35.0 [facility] MCV [Entitic volume] by Auto mated countOrdered By: Vic Mendez on 01-18-2024 MCV (RBC) [Entitic vol] 92.6 fL Normal 80-100 [facility] Comment on above: Performed By: #### M G, CMP, PT, PTT, CK, CBC, HS TROP #### [facility] [address] [place] [address] Magnesium [Mass/volume] in S vaughn or PlasmaOrdered By: Vic Mendez on 01-18-2024 Magnesium [Mass/Vol] 1.9 mg/dL Normal 1.9-2.7 [facility] Comment on above: Order Comment: ADÁN E QNS, REDRAW REQUESTED, NOTIFIED ROSA Vázquez Result Comment: PERF ORMED BY: [place] [address] PATHOLOGIST BREAKFAST COOK VITOR ZARATE M.D. Performed By: #### M G, CMP, PT, PTT, CK, CBC, HS TROP ####[facility] Jud[address] Monocyte distribution width [Entitic volume] in Blood by AutomatedOrdered By: Vic Mendez on 01-18-2024 Monocyte distribution width Auto (Bld) [Entitic vol] 18.06 % 0.00-20.00 [facility] Neutrophils [#/volume] in Bl ood by Automated countOrdered By: Vic Mendez on 01-18-2024 Neutrophils (Bld) [#/Vol] 8.5 10*3/uL High 1.8-7.7 [facility] Comment on above: Performed By: #### M G, CMP, PT, PTT, CK, CBC, HS TROP #### [facility] [address] No Panel InformationOrdered By: Vic Mednez on 01-18-2024 Estimated GFR (CKD-EPI) 59.440 mL/Min [facility] Creatinine Clearance (Chem 40.09 [facility] Nucleated erythrocytes [Pres ence] in Blood by Automated countOrdered By: Vic Mendez on 01-18-2024 Nucleated RBC Auto Ql (Bld) 0.1 /100{WBC} 0-0.5 [facility] Partial Thromboplastin Timeo n 01-18-2024 aPTT Coag (Bld) [Time] 31.3 s Normal 25.1-36.5 Th e [facility] Comment on above: Result Comment: A he matocrit value greater than 55% may lead to inaccurate results in coagulation testing. Patients having hematocrit values >55% require a special collection tube for coagulation studies. Please contact the laboratory at [phone] for redraw instructions. PERFORMED BY: [place] [address] PATHOLOGIST BREAKFAST COOK VITOR ZARATE M.D. Performed By: #### M G, CMP, PT, PTT, CK, CBC, HS TROP ####[facility] [address] [place] [address] Platelet mean volume [Entiti c volume] in Blood by Automated countOrdered By: Vic Mendez on 01-18-2024 Platelet mean volume (Bld) [Entitic vol] 8.5 fL Normal 6.3-10.7 [facility] Comment on above: Performed By: #### M G, CMP, PT, PTT, CK, CBC, HS TROP #### [facility] [address] [place] [address] Platelets [#/volume] in Bloo d by Automated countOrdered By: Vic Mendez on 01-18-2024 Platelets (Bld) [#/Vol] 205 10*3/uL Normal 150-450 [facility] Comment on above: Performed By: #### M G, CMP, PT, PTT, CK, CBC, HS TROP #### [facility] [address] [place] [address] [facility] Potassium [Moles/volume] in Serum or PlasmaOrdered By: Vic Mendez on 01-18-2024 Potassium [Moles/Vol] 4.1 mmol/L Normal 3.5-5.1 [facility] Comment on above: Order Comment: SAMPL E QNS, REDRAW REQUESTED, NOTIFIED ROSA Vázquez Performed By: #### M G, CMP, PT, PTT, CK, CBC, HS TROP ####[facility] [place] [id number] [facility] Protein [Mass/volume] in Ser um or PlasmaOrdered By: Vic Mendez on 01-18-2024 Protein [Mass/Vol] 6.0 g/dL Low 6.4-8.9 [facility] Comment on above: Order Comment: SAMPL E QNS, REDRAW REQUESTED, NOTIFIED ROSA Vázquez Performed By: #### M G, CMP, PT, PTT, CK, CBC, HS TROP ####[place] [address] Prothrombin time (PT)Ordered By: Vic Mendez on 01-18-2024 PT Coag (PPP) [Time] 16.8 s High 9.0-12.9 [facility] Comment on above: A hematocrit value g reater than 55% may lead to inaccurate results in coagulation testing. Patients having hematocrit values >55% require a special collection tube for coagulation studies. Please contact the laboratory at [phone] for redraw instructions. Result Comment: A he matocrit value greater than 55% may lead to inaccurate results in coagulation testing. Patients having hematocrit values >55% require a special collection tube for coagulation studies. Please contact the laboratory at [phone] for redraw instructions. Performed By: #### M G, CMP, PT, PTT, CK, CBC, HS TROP ####[facility] K[address] [place] [id number] [facility] Serum globulin measurement b y calculation (mass/volume)Ordered By: Vic Mendez on 01-18-2024 Globulin (S) [Mass/Vol] 2.3 g/dL Normal [facility] Comment on above: Order Comment: SAMPL E QNS, REDRAW REQUESTED, NOTIFIED ROSA Vázquez Performed By: #### M G, CMP, PT, PTT, CK, CBC, HS TROP ####[place] [address] [place] [id number] [facility] Serum or plasma albumin/glob ulin mass ratioOrdered By: Vic Mendez on 01-18-2024 Albumin/Globulin [Mass ratio] 1.6 {ratio} Normal [facility] Comment on above: Order Comment: SAMPL E QNS, REDRAW REQUESTED, NOTIFIED ROSA Vázquez Performed By: #### M G, CMP, PT, PTT, CK, CBC, HS TROP ####[place] [address] Serum or plasma anion gap de terminationOrdered By: Vic Mendez on 01-18-2024 Anion gap [Moles/Vol] 11.7 mmol/L Normal 6.0-15.0 [facility] Comment on above: Order Comment: SAMPL E QNS, REDRAW REQUESTED, NOTIFIED ROSA Vázquez Performed By: #### M G, CMP, PT, PTT, CK, CBC, HS TROP ####[place] [address] Sodium [Moles/volume] in Ser um or PlasmaOrdered By: Vic Mendez on 01-18-2024 Sodium [Moles/Vol] 139 mmol/L Normal 136-145 [facility] Comment on above: Order Comment: SAMPL E QNS, REDRAW REQUESTED, NOTIFIED ROSA Vázquez Performed By: #### M G, CMP, PT, PTT, CK, CBC, HS TROP ####[place] [address] [place] [id number] [facility] Thyrotropin [Units/volume] i n Serum or PlasmaOrdered By: Izzy Capps on 01-18-2024 TSH Qn 0.83 m[IU]/L Normal 0.45-5.33 [facility] Comment on above: Order Comment: Comme nt Add on Result Comment: PERF ORMED BY: [facility] [address] [place] [address] PATHOLOGIST BREAKFAST COOK VITOR ZARATE M.D. Performed By: #### T SH3 ####[place] [address] [place] [id number] [facility] Troponin I High Sensitivityo n 01-18-2024 Troponin I High Sensitivity 14.7 pg/mL Normal 0.0-15.0 [facility] Comment on above: Result Comment: PERF ORMED BY: [facility] [address] [place] [address] PATHOLOGIST BREAKFAST COOK VITOR ZARATE M.D. Performed By: #### M G, CMP, PT, PTT, CK, CBC, HS TROP ####[place] [address] [place] [id number] [facility] Troponin I.cardiac [Mass/vol ume] in Serum or Plasma by Detection limit <= 0.01 ng/Ordered By: Vic Mendez on 01-18-2024 Troponin I.cardiac DL <= 0.01 ng/mL [Mass/Vol] 14.7 pg/mL 0.0-15.0 [facility] Urea nitrogen [Mass/volume] in Serum or PlasmaOrdered By: Vic Mendez on 01-18-2024 Urea nitrogen [Mass/Vol] 29 mg/dL High 7-25 [facility] Comment on above: Order Comment: ADÁN [place]ON, REDRAW REQUESTED, NOTIFIED ROSA Vázquez Performed By: #### M G, CMP, PT, PTT, CK, CBC, HS TROP ####[place] [id number] [place] [id number] [facility] XR chest 1V portableon 01-17 XR chest 1V portable [facility] [address] [place] [address] [place] [id number] XRay Report Signed Patient: Lesa Golden MR#: [id number] 8 : 1940 Acct:[id number] Age/Sex: 83 / F ADM Date: 01/18/24 Loc: ER Room: Type: [facility] ER Attending Dr: Copies to: Vic [...] FINDINGS. Impression dictated by: Nnamdi Carson Jr., D.OMelita01/18/2024 3:37 PM Dictation Location: [id number] Transcribed By: [facility] 01/18/24 1537 Dictated By: Nnamdi Carson Jr, DO 01/18/24 1536 Signed By: 01/18/24 1537 Normal [facility] MR lumbar spine wo conon MR lumbar spine wo con [facility] [address] [place] [address] [place] [address] MRI Report Signed Patient: Lesa Golden MR#: [id number] 8 : 1940 Acct:[id number] Age/Sex: 83 / F ADM Date: 11/21/23 Loc: MR Room: Type: [facility] Attending Dr: Yesica Astudillo MD Copies [...] Juanito Borja M.D.11/21/2023 5:55 PM Dictation Location: [place] [address] Transcribed By: [facility] 11/21/23 175 Dictated By: Juanito Borja DO 11/21/23 175 Signed By: 11/21/23 175 Normal [facility] ECG 12 [place] 09-19-2023 Rhythm appeared to b e atrial flutter with 2/ 1 AV block with nonspecific ST-T changes [facility] Work Phone: US Heart Transthoracicon Aortic Valve Area by Continuity of Peak Velocity 2.36 [facility] Work Phone: [phone] Aortic Valve Area by Continuity of VTI 2.33 [facility] Work Phone: [phone] AV mn grad 2.0 [facility] Work Phone: [phone] AV pk grad 3.5 [facility] Work Phone: [phone] AV pk douglas 0.94 [facility] Work Phone: [phone] LV A4C EF 63.6 [facility] Work Phone: [phone] LVIDd 3.20 [facility] Work Phone: LVOT diam 1.90 [facility] Work Phone: MV avg E/e' ratio 20.20 [facility] Work Phone: RVSP 32.8 [facility] Work Phone: [facility] [address] [place] [address], [address] [place] [address] TRANSTHORACIC ECHOCARDIOGRAM REPORT Patient Name: LESA GOLDEN Reading Physician: [id number] Mac MD Study Date: 08/21/2023 Ordering Provider: [id number] DEBBIE MAC MRN/PID: [id number] Fellow: Nurse: Date of /Age: 1 1940 / 82 years Software Specialist: Iqra Pham RDCS, RVT Gender: F Additional Staff: Height: 149.86 cm Admit Date: Weight: 74.84 kg Admission Status: BSA: 1.70 m2 Department Location: [facility] Blood Pressure: 116 /64 mmHg Study Type: TRANSTHORACIC ECHO (TTE) COMPLETE Diagnosis/ICD: Chronic diastolic (congestive) heart failure (CHF)-I50.32; Essential (primary) hypertension-I10; Dyspnea, unspecified-R06.00 Indication: Atrial Fibrillation, Sick Sinus Syndrome, Hyerlipidemia, Pacemaker, Overweight, CKD-Stage III CPT Codes: Echo Complete w Full Doppler-64084 Study Detail: The following Echo studies were [...] not included)... Debbie Dominique MD - 08/22/[address], [address] [place] [address] TRANSTHORACIC ECHOCARDIOGRAM REPORT Patient Name: LESA Arriaga Physician: [id number] Mac MD Study Date: 08/21/2023 Ordering Provider: Zurdo MAC MRN/PID: [id number] Fellow: Nurse: Date of /Age: 1 1940 / 82 years Software Specialist: Iqra Pham RDCS, RVT Gender: F Additional Staff: Height: 149.86 cm Admit Date: Weight: 74.84 kg Admission Status: BSA: 1.70 m2 Department Location: [facility] Blood Pressure: 116 /64 mmHg Study Type: TRANSTHORACIC ECHO (TTE) COMPLETE Diagnosis/ICD: Chronic diastolic (congestive) heart failure (CHF)-I50.32; Essential (primary) hypertension-I10; Dyspnea, unspecified-R06.00 Indication: Atrial Fibrillation, Sick Sinus Syndrome, Hyerlipidemia, Pacemaker, Overweight, CKD-Stage III CPT Codes: Echo Complete w Full Doppler-22686 Study Detail: The following Echo studies were [...] 0.7 m/s (0.6-0.9m/s) PV Max P.8 mmHg [id number] Debbie Mac MD Electronically signed on 08/22/2023 at 12:31:20 PM Final [facility] Work Phone: [facility] Work Phone: TRANSTHORACIC ECHO (TTE) FAITH Calvillo 08-21-2023 TRANSTHORACIC ECHO (TTE) COMPLETE [facility] [address] [place] [address], Suite [facility], [place] [address] TRANSTHORACIC ECHOCARDIOGRAM REPORT Patient Name: LESA GOLDEN Reading Physician: [id number] Debbie Mac MD Study Date: 08/21/2023 Ordering Provider: [id number] DEBBIE MAC MRN/PID: [id number] Fellow: Nurse: Date of /Age: 1 1940 / 82 years Software Specialist: Iqra Pham RDCS, T Gender: F Additional Staff: Height: 149.86 cm Admit Date: Weight: 74.84 kg Admission Status: BSA: 1.70 m2 Department Location: [facility] Blood Pressure: 116 /64 mmHg Study Type: TRANSTHORACIC ECHO (TTE) COMPLETE Diagnosis/ICD: Chronic diastolic (congestive) heart failure (CHF)-I50.32; Essential (primary) hypertension-I10; Dyspnea, unspecified-R06.00 Indication: Atrial Fibrillation, Sick Sinus Syndrome, Hyerlipidemia, Pacemaker, Overweight, CKD-Stage III CPT Codes: Echo Complete w Full Doppler-02899 Study Detail: The following Echo studies were [...] 0.7 m/s (0.6-0.9m/s) PV Max P.8 mmHg [id number] Debbie Mac MD Electronically signed on 08/22/2023 at 12:31:20 PM Final Normal [facility] ECG 12 [place] 05-31-2023 Paced atrial rhythm with normal QTc interval [facility] Work Phone: Alkaline phosphatase [Enzyma tic activity/volume] in Serum or PlasmaOrdered By: Wilbur Watson on 03-05-2023 ALP [Catalytic activity/Vol] 82 U/L 34-104 [facility] Amylase [Enzymatic activity/ volume] in Serum or PlasmaOrdered By: Wilbur Watson on 03-05-2023 Amylase [Catalytic activity/Vol] 32 U/L 29-103 [facility] Aspartate aminotransferase [ Enzymatic activity/volume] in Serum or PlasmaOrdered By: Wilbur Watson on 03-05-2023 AST [Catalytic activity/Vol] 19 U/L 13-39 [facility] Bilirubin.direct [Mass/volum e] in Serum or PlasmaOrdered By: Wilbur Watson on 03-05-2023 Bilirubin.direct [Mass/Vol] 0.20 mg/dL 0.03-0.18 [facility] Bilirubin.total [Mass/volume ] in Serum or PlasmaOrdered By: Wilbur Watson on 03-05-2023 Bilirubin [Mass/Vol] 0.7 mg/dL 0.3-1.0 [facility] Lipase [Enzymatic activity/v olume] in Serum or PlasmaOrdered By: Wilbur aWtson on 03-05-2023 Lipase [Catalytic activity/Vol] 31.0 U/L 11.0-82.0 [facility] Serum or plasma non-glucuron idated bilirubin measurement (mass/volume)Ordered By: Wilbur Watson on 03-05-2023 Bilirubin.indirect [Mass/Vol] 0.5 mg/dL [facility] Basophils Auto (Bld) [#/Vol] Ordered By: Wilbur Watson on 02-26-2023 Basophils (Bld) [#/Vol] 0.0 10*3/uL 0.0-0.2 [facility] Basophils/100 WBC Auto (Bld) Ordered By: Wilbur Watson on 02-26-2023 Basophils/100 WBC (Bld) 0.5 % . [facility] Calcium [Mass/volume] in Ser um or PlasmaOrdered By: Wilbur Watson on 02-26-2023 Calcium [Mass/Vol] 9.0 mg/dL 8.6-10.3 [facility] Carbon dioxide, total [Moles /volume] in Serum or PlasmaOrdered By: Wilbur Watson on 02-26-2023 CO2 [Moles/Vol] 24.7 mmol/L 21.0-31.0 [facility] Chloride [Moles/volume] in S vaughn or PlasmaOrdered By: Wilbur Watson on 02-26-2023 Chloride [Moles/Vol] 108 mmol/L 98-107 [facility] Creatinine [Mass/volume] in Serum or PlasmaOrdered By: Wilbur Watson on 02-26-2023 Creatinine [Mass/Vol] 1.03 mg/dL 0.60-1.20 [facility] Eosinophils Auto (Bld) [#/Vo l]Ordered By: Wilbur Watson on 02-26-2023 Eosinophils (Bld) [#/Vol] 0.2 10*3/uL 0.0-0.45 [facility] Eosinophils/100 WBC Auto (Bl d)Ordered By: Wilbur Watson on 02-26-2023 Eosinophils/100 WBC (Bld) 2.2 % . [facility] Erythrocyte distribution wid th Auto (RBC) [Ratio]Ordered By: Wilbur Watson on 02-26-2023 Erythrocyte distribution width (RBC) [Ratio] 13.8 % 11.9-15.3 [facility] Glucose [Mass/volume] in Ser um or PlasmaOrdered By: Wilbur Watson on 02-26-2023 Glucose [Mass/Vol] 81 mg/dL 70-100 [facility] Comment on above: ADA recommended refe rence rangeRandom Glucose Reference Range is dependent on time and content of last meal. Glucose of more than 200 mg/dL in a nonstressed, ambulatory subject supports the diagnosis of Diabetes Mellitus. Hematocrit Auto (Bld) [Volum e fraction]Ordered By: Wilbur Watson on 02-26-2023 Hematocrit (Bld) [Volume fraction] 44.1 % 34.0-46.4 [facility] Hemoglobin [Mass/volume] in BloodOrdered By: Wilbur Watson on 02-26-2023 Hemoglobin (Bld) [Mass/Vol] 14.9 g/dL 11.8-15.4 [facility] Leukocytes [#/volume] correc anne marie for nucleated erythrocytes in Blood by Automated counOrdered By: Wilbur Watson on 02-26-2023 WBC corrected for nucl RBC Auto (Bld) [#/Vol] 8.3 10*3/uL 3.8-11.6 [facility] Lymphocytes Auto (Bld) [#/Vo l]Ordered By: Wilbur Watson on 02-26-2023 Lymphocytes (Bld) [#/Vol] 0.9 10*3/uL 1.00-4.8 [facility] Lymphocytes/100 WBC Auto (Bl d)Ordered By: Wilbur Watson on 02-26-2023 Lymphocytes/100 WBC (Bld) 10.3 % . [facility] MCH Auto (RBC) [Entitic mass ]Ordered By: Wilbur Watson on 02-26-2023 MCH (RBC) [Entitic mass] 30.5 pg 24.7-34.3 [facility] MCHC Auto (RBC) [Mass/Vol]Or dered By: Wilbur Watson on 02-26-2023 MCHC (RBC) [Mass/Vol] 33.8 g/dL 32.0-35.0 [facility] MCV Auto (RBC) [Entitic vol] Ordered By: Wilbur Watson on 02-26-2023 MCV (RBC) [Entitic vol] 90.4 fL 80-100 [facility] Monocytes Auto (Bld) [#/Vol] Ordered By: Wilbur Watson on 02-26-2023 Monocytes (Bld) [#/Vol] 0.6 10*3/uL 0.0-0.8 [facility] Monocytes/100 WBC Auto (Bld) Ordered By: Wilbur Watson on 02-26-2023 Monocytes/100 WBC (Bld) 7.1 % . [facility] Neutrophils Auto (Bld) [#/Vo l]Ordered By: Wilbur Watson on 02-26-2023 Neutrophils (Bld) [#/Vol] 6.6 10*3/uL 1.8-7.7 [facility] Neutrophils/100 WBC Auto (Bl d)Ordered By: Wilbur Watson on 02-26-2023 Neutrophils/100 WBC (Bld) 79.9 % . [facility] No Panel InformationOrdered By: Wilbur Watson on 02-26-2023 Estimated GFR (CKD-EPI) 54.967 mL/Min [facility] Creatinine Clearance (Chem N/A [facility] Nucleated erythrocytes [Pres ence] in Blood by Automated countOrdered By: Wilbur Watson on 02-26-2023 Nucleated RBC Auto Ql (Bld) 0.0 /100{WBC} 0-0.5 [facility] Platelet mean volume Auto (B ld) [Entitic vol]Ordered By: Wilbur Watson on 02-26-2023 Platelet mean volume (Bld) [Entitic vol] 8.9 fL 6.3-10.7 [facility] Platelets Auto (Bld) [#/Vol] Ordered By: Wilbur Watson on 02-26-2023 Platelets (Bld) [#/Vol] 194 10*3/uL 150-450 [facility] Potassium [Moles/volume] in Serum or PlasmaOrdered By: Wilbur Watson on 02-26-2023 Potassium [Moles/Vol] 4.3 mmol/L 3.5-5.1 [facility] RBC Auto (Bld) [#/Vol]Ordere d By: Wilbur Watson on 02-26-2023 RBC (Bld) [#/Vol] 4.88 10*6/uL 3.60-5.00 [facility] Serum or plasma anion gap de terminationOrdered By: Wilbur Watson on 02-26-2023 Anion gap [Moles/Vol] 12.6 mmol/L 6.0-15.0 [facility] Sodium [Moles/volume] in Ser um or PlasmaOrdered By: Wilbur Watson on 02-26-2023 Sodium [Moles/Vol] 141 mmol/L 136-145 [facility] Urea nitrogen [Mass/volume] in Serum or PlasmaOrdered By: Wilbur Watson on 02-26-2023 Urea nitrogen [Mass/Vol] 32 mg/dL 7-25 [facility] WBC Auto (Bld) [#/Vol]Ordere d By: Wilbur Watson on 02-26-2023 WBC (Bld) [#/Vol] 8.3 10*3/uL 3.8-11.6 [facility] Falls Screening (Age 18+)on 01-25-2023 Fall risk assessment a) No falls within the last year [facility] Work Phone: Tobacco use status CPHS b) No [facility] Work Phone: Office Visit (Cardiology)on 01-25-2023 Follow-up [...] to GI for work up 02/14 Dr. Medrano pending Follow up in 4 months The [...] seen by both Dr. Chacon and Dr. Medrano. She did undergo cardiac catheterization that showed [...] ablation she is scheduled to see Dr. Medrano in the near future 4. We will [...] aPTT Coag (PPP) [Time] 19.5 s 25.1-36.5 [facility] Basophils Auto (Bld) [#/Vol] Ordered By: Debbie Mac on 01-09-2023 Basophils (Bld) [#/Vol] 0.0 10*3/uL 0.0-0.2 [facility] Basophils/100 WBC Auto (Bld) Ordered By: Debbie Mac on 01-09-2023 Basophils/100 WBC (Bld) 0.6 % . [facility] Carbon dioxide, total [Moles /volume] in Serum or PlasmaOrdered By: Debbie aMc on 01-09-2023 CO2 [Moles/Vol] 25.6 mmol/L 21.0-31.0 [facility] Chloride [Moles/volume] in S vaughn or PlasmaOrdered By: Debbie Mac on 01-09-2023 Chloride [Moles/Vol] 106 mmol/L 98-107 [facility] Cholesterol [Mass/volume] in Serum or PlasmaOrdered By: Debbie Mac on 01-09-2023 Cholesterol [Mass/Vol] 135 mg/dL 140-200 [facility] Comment on above: Chol less than 200 m g/dl low riskChol 201-239 mg/dl borderline riskChol 240 mg/dl and greater high risk Cholesterol in LDL Calc [Mas s/Vol]Ordered By: Debbie Mac on 01-09-2023 Cholesterol in LDL [Mass/Vol] 45 mg/dL 0-100 [facility] Comment on above: LDL ATP III CLASSIFI CATIONLDL less than 100 mg/dL OptimalLDL 100-129 mg/dL Near or above optimalLDL 130-159 mg/dL Borderline highLDL 160-189 mg/dL HighLDL greater than 189 mg/dL Very high Cholesterol in VLDL Calc [Ma ss/Vol]Ordered By: Debbie Mac on 01-09-2023 Cholesterol in VLDL [Mass/Vol] 13 mg/dL [facility] Creatinine [Mass/volume] in Serum or PlasmaOrdered By: Debbie Mac on 01-09-2023 Creatinine [Mass/Vol] 0.98 mg/dL 0.60-1.20 [facility] Eosinophils Auto (Bld) [#/Vo l]Ordered By: Debbie Mac on 01-09-2023 Eosinophils (Bld) [#/Vol] 0.2 10*3/uL 0.0-0.45 [facility] Eosinophils/100 WBC Auto (Bl d)Ordered By: Debbie Mac on 01-09-2023 Eosinophils/100 WBC (Bld) 2.9 % . [facility] Erythrocyte distribution wid th Auto (RBC) [Ratio]Ordered By: Debbie Mac on 01-09-2023 Erythrocyte distribution width (RBC) [Ratio] 14.5 % 11.9-15.3 [facility] Hematocrit Auto (Bld) [Volum e fraction]Ordered By: Debbie Mac on 01-09-2023 Hematocrit (Bld) [Volume fraction] 43.9 % 34.0-46.4 [facility] Hemoglobin [Mass/volume] in BloodOrdered By: Debbie Mac on 01-09-2023 Hemoglobin (Bld) [Mass/Vol] 14.7 g/dL 11.8-15.4 [facility] Laboratory - Chemistry and C hemistry - challengeon 01-09-2023 Cholesterol [Mass/Vol] 135\S\135 below low threshold 140-200 [facility] Work Phone: Comment on above: Chol less than 200 m g/dl low risk Chol 201-239 mg/dl borderline risk Chol 240 mg/dl and greater high risk Cholesterol in LDL [Mass/Vol] 45\S\45 Normal 0-100 [facility] Work Phone: Comment on above: LDL ATP III CLASSIFI CATION LDL less than 100 mg/dL Optimal LDL 100-129 mg/dL Near or above optimal LDL 130-159 mg/dL Borderline high LDL 160-189 mg/dL High LDL greater than 189 mg/dL Very high Laboratory - CoagulationOrde red By: Debbie Mac on 05-23-2023 PT Coag (PPP) [Time] 11.5 s 9.0-12.9 [facility] Leukocytes [#/volume] correc anne marie for nucleated erythrocytes in Blood by Automated counOrdered By: Debbie Mac on 01-09-2023 WBC corrected for nucl RBC Auto (Bld) [#/Vol] 7.1 10*3/uL 3.8-11.6 [facility] Lymphocytes Auto (Bld) [#/Vo l]Ordered By: Debbie Mac on 01-09-2023 Lymphocytes (Bld) [#/Vol] 1.0 10*3/uL 1.00-4.8 [facility] Lymphocytes/100 WBC Auto (Bl d)Ordered By: Debbie Mac on 01-09-2023 Lymphocytes/100 WBC (Bld) 14.7 % . [facility] MCH Auto (RBC) [Entitic mass ]Ordered By: Debbie Mac on 01-09-2023 MCH (RBC) [Entitic mass] 29.8 pg 24.7-34.3 [facility] MCHC Auto (RBC) [Mass/Vol]Or dered By: Debbie Mac on 01-09-2023 MCHC (RBC) [Mass/Vol] 33.5 g/dL 32.0-35.0 [facility] MCV Auto (RBC) [Entitic vol] Ordered By: Debbie Mac on 01-09-2023 MCV (RBC) [Entitic vol] 89.1 fL 80-100 [facility] Monocytes Auto (Bld) [#/Vol] Ordered By: Debbie Mac on 01-09-2023 Monocytes (Bld) [#/Vol] 0.5 10*3/uL 0.0-0.8 [facility] Monocytes/100 WBC Auto (Bld) Ordered By: Debbie Mac on 01-09-2023 Monocytes/100 WBC (Bld) 7.0 % . [facility] Neutrophils Auto (Bld) [#/Vo l]Ordered By: Debbie Mac on 01-09-2023 Neutrophils (Bld) [#/Vol] 5.3 10*3/uL 1.8-7.7 [facility] Neutrophils/100 WBC Auto (Bl d)Ordered By: Debbie Mac on 01-09-2023 Neutrophils/100 WBC (Bld) 74.8 % . [facility] No Panel Informationon 01-09 74.8\S\74.8 Normal . [facility] Work Phone: [phone] 8.8\S\8.8 Normal 6.3-10.7 [facility] Work Phone: 167\S\167 Normal 150-450 [facility] Work Phone: 14.5\S\14.5 Normal 11.9-15.3 [facility] Work Phone: 33.5\S\33.5 Normal 32.0-35.0 [facility] Work Phone: [phone] 29.8\S\29.8 Normal 24.7-34.3 [facility] Work Phone: 5.3\S\5.3 Normal 1.8-7.7 [facility] Work Phone: 0.1\S\0.1 Normal 0-0.5 [facility] Work Phone: 0.6\S\0.6 Normal . [facility] Work Phone: 2.9\S\2.9 Normal . [facility] Work Phone: 7.0\S\7.0 Normal . [facility] Work Phone: 14.7\S\14.7 Normal 11.8-15.4 [facility] Work Phone: [phone] 0.0\S\0.0 Normal 0.0-0.2 [facility] Work Phone: [phone] Comment on above: PERFORMED BY:[place] [id number] [place], [place] [phone] MEDICAL DIRECTORVITOR ZARATE M.D. 0.2\S\0.2 Normal 0.0-0.45 [facility] Work Phone: 0.5\S\0.5 Normal 0.0-0.8 [facility] Work Phone: [phone] 1.0\S\1.0 Normal 1.00-4.8 [facility] Work Phone: [phone] 89.1\S\89.1 Normal 80-100 [facility] Work Phone: [phone] 43.9\S\43.9 Normal 34.0-46.4 [facility] Work Phone: [phone] 4.92\S\4.92 Normal 3.60-5.00 [facility] Work Phone: [phone] 7.1\S\7.1 Normal 3.8-11.6 [facility] Work Phone: [phone] 4.5\S\4.5 Normal 3.5-5.1 [facility] Work Phone: Comment on above: PERFORMED BY:[facility] [place], [place] [id number] MEDICAL DIRECTORVITOR ZARATE M.D. 1.8\S\1.8 Normal <5.0 [facility] Work Phone: Comment on above: PERFORMED BY:[place] [address] [address] [place], [place] [phone] MEDICAL DIRECTORVITOR ZARATE M.D. 13\S\13 Normal [facility] Work Phone: [phone] 69\S\69 Normal 0-149 [facility] Work Phone: Comment on above: TRIG ATP III CLASSIF ICATION TRIG less than 150 mg/dL Normal TRIG 150-199 mg/dL Borderline high TRIG 200-500 mg/dL High TRIG greater than 500 mg/dL Very high Standard traceable to the Center for Disease Conrtrol and Prevention (CDC) test method. 76\S\76 Normal 35-85 [facility] Work Phone: Comment on above: HDL CHOL ATP-III CLA SSIFICATION Cardiovascular Risk HDL > or equal to 60 mg/dL LOW HDL < 40 mg/dL HIGH 19.5\S\19.5 below low threshold 25.1-36.5 [facility] Work Phone: [phone] Comment on above: PERFORMED BY:[facility] [place] [place] [phone] MEDICAL DIRECTORVITOR ZARATE M.D. 1.0\S\1.0 Normal [facility] Work Phone: [phone] Comment on above: INR Therapeutic Rang [...] valves: 3 - 4.5 11.5\S\11.5 Normal 9.0-12.9 [facility] Work Phone: [phone] Test not performed\S \Test not performed Normal 6.0-15.0 [facility] Work Phone: [phone] 25.6\S\25.6 Normal 21.0-31.0 [facility] Work Phone: [phone]\S\106 Normal 98-107 [facility] Work Phone: [phone] Normal 3.5-5.1 [facility] Work Phone: [phone] Comment on above: Specimen hemolyzed, redraw requested 138\S\138 Normal 136-145 [facility] Work Phone: [phone] 22\S\22 Normal 7-25 [facility] Work Phone: [phone] 40.90\S\40.90 Normal [facility] Work Phone: [phone] Comment on above: PERFORMED BY:[facility] [place] [place] [id number] MEDICAL DIRECTORVITOR ZARATE M.D. 58.349\S\58.349 Normal [facility] Work Phone: 0.98\S\0.98 Normal 0.60-1.20 [facility] Work Phone: No Panel InformationOrdered By: Debbie Mac on 01-09-2023 Estimated GFR (CKD-EPI) 58.349 mL/Min [facility] Creatinine Clearance (Chem 40.90 [facility] Nucleated erythrocytes [Pres ence] in Blood by Automated countOrdered By: Debbie Mac on 01-09-2023 Nucleated RBC Auto Ql (Bld) 0.1 /100{WBC} 0-0.5 [facility] Platelet mean volume Auto (B ld) [Entitic vol]Ordered By: Debbie Mac on 01-09-2023 Platelet mean volume (Bld) [Entitic vol] 8.8 fL 6.3-10.7 [facility] Platelet poor plasma interna tional normalized ratio (INR) by coagulation assay (relatOrdered By: Debbie Mac on 01-09-2023 INR Coag (PPP) [Relative time] 1.0 {INR} [facility] Comment on above: INR Therapeutic Rang e [...] 01-09-2023 Platelets (Bld) [#/Vol] 167 10*3/uL 150-450 [facility] Potassium [Moles/volume] in Serum or PlasmaOrdered By: Debbie Mac on 01-09-2023 Potassium [Moles/Vol] 4.5 mmol/L 3.5-5.1 [facility] RBC Auto (Bld) [#/Vol]Ordere d By: Debbie Mac on 01-09-2023 RBC (Bld) [#/Vol] 4.92 10*6/uL 3.60-5.00 [facility] Serum or plasma anion gap de terminationOrdered By: Debbie Mac on 01-09-2023 Anion gap [Moles/Vol] TNP [facility] Comment on above: Test not performed Serum or plasma high density lipoprotein (HDL) cholesterol measurementOrdered By: Debbie Mac on 01-09-2023 Cholesterol in HDL [Mass/Vol] 76 mg/dL 35-85 [facility] Comment on above: HDL CHOL ATP-III CLA SSIFICATION Cardiovascular RiskHDL > or equal to 60 mg/dL LOWHDL < 40 mg/dL HIGH Serum or plasma total choles terol/high density lipoprotein (HDL) cholesterol mass ratOrdered By: Debbie Mac on 01-09-2023 Cholesterol.total/Chol esterol in HDL [Mass ratio] 1.8 {ratio} <5.0 [facility] Sodium [Moles/volume] in Ser um or PlasmaOrdered By: Debbie Mac on 01-09-2023 Sodium [Moles/Vol] 138 mmol/L 136-145 [facility] Triglyceride [Mass/volume] i n Serum or PlasmaOrdered By: Debbie Mac on 01-09-2023 Triglyceride [Mass/Vol] 69 mg/dL 0-149 [facility] Comment on above: TRIG ATP III CLASSIF ICATIONTRIG less than 150 mg/dL NormalTRIG 150-199 mg/dL Borderline highTRIG 200-500 mg/dL High TRIG greater than 500 mg/dL Very highStandard traceable to the Center for Disease Conrtrol and Prevention (CDC) test method. Urea nitrogen [Mass/volume] in Serum or PlasmaOrdered By: Debbie Mac on 01-09-2023 Urea nitrogen [Mass/Vol] 22 mg/dL 7-25 [facility] WBC Auto (Bld) [#/Vol]Ordere d By: Debbie Mac on 01-09-2023 WBC (Bld) [#/Vol] 7.1 10*3/uL 3.8-11.6 [facility] Office Visit (Cardiology)on 01-04-2023 Follow-up visit [...] in adult Healthy Weight Tips; Status:Complete; Done: [id number] Some eating tips that can help you lose weight.; Status:Complete; Done: [id number] Diastolic heart failure, Dyspnea, Essential hypertension, benign, Persistent atrial fibrillation, 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 Cardiac Catherization; Status:Active; Requested for:[id number]; Persistent atrial fibrillation IO EKG Electrocardiogram- 12 Lead; Status:Complete; Done: [id number] SocHx: Never a smoker Tobacco Use Screening; Status:Complete; Done: [id number] Patient Instructions Please bring all medicines, vitamins, [...] ablation. She was seen recently by Dr. Chcaon but apparently ablation could not be done until April and the patient did not want a wait that long so I did ask Dr. Medrano to see her. He agreed for consideration [...] and alternat (more content not included)... Normal [employer] TROPONIN, HIGH SENSITIVITYon 01-04-2023 HSTROP 73.1 pg/mL Critically high 4.0-51.3 [facility] Comment on above: Result Comment: CUT- OFF POINTS HAVE BEEN ESTABLISHED BASED ON THE FOURTH UNIVERSAL DEFINITIONS OF MYOCARDIAL INFARCTION. THE UPPER REFERENCE LIMIT (URL) OF TROPONIN, DEFINED THE 99TH PERCENTILE OF cTnI DISTRIBUTION IN A REFERENCE POPULATION, HAS BEEN CONFIRMED THE DECISION THRESHOLD FOR [place] DIAGNOSIS. Performed By: #### H STROPN #### [facility] [address] [place], [place] [address] Dr. Lori Sutton Tobacco Screening.on 023 Tobacco use status [facility] b) No [employer] [facility] Work Phone: XR CHEST 1 Von 01-04-2023 [...] cardiomegaly. Large hiatal hernia. Electronically authenticated by: [facility] Date: 2023-01-03 22:39 Normal [facility] BNPon 01-03-2023 Natriuretic peptide B (Bld) [Mass/Vol] 438.0 pg/mL Normal <=1,800.0 [facility] Comment on above: Performed By: #### B CAPPER MACHINE OPERATOR ####[facility] [address] [place], [place] [address]Dr. Lori Sutton CBC AUTO DIFFon 01-03-2023 BASO # 0.0 103/ul Normal 0.0-0.1 [facility] Comment on above: Performed By: #### C BC ####[facility] [address] [place] [address]Dr. Lori Sutton Basophils/100 WBC (Bld) 0.7 % Normal 0.2-2.0 [facility] Comment on above: Performed By: #### C BC ####[facility] [address] [place], [place] [address]Dr. Lori Sutton EO # 0.2 103/ul Normal 0.0-0.7 [facility] Comment on above: Performed By: #### C BC ####[facility] [address] [place], [place] [address]Dr. Lori Sutton Eosinophils/100 WBC (Bld) 4.2 % Normal 0.9-7.0 [facility] Comment on above: Performed By: #### C BC ####[facility] [address] [place], [place] [address]Dr. Lori Sutton Erythrocyte distribution width (RBC) [Ratio] 13.7 % Normal 11.0-15.0 [facility] Comment on above: Performed By: #### C BC ####[facility] [address] [place], [place] [address]Dr. Lori Sutton Hematocrit (Bld) [Volume fraction] 46.1 % Normal 36.0-48.0 [facility] Comment on above: Performed By: #### C BC ####[facility] [address] [place], [place] [address]Dr. Lori Sutton Hemoglobin (Bld) [Mass/Vol] 14.7 g/dL Normal 12.0-16.0 [facility] Comment on above: Performed By: #### C BC ####[facility] [address] [place], [place] [address]Dr. Lori Sutton IG # 0.01 10e3/ul Normal 0.00-0.03 [facility] Comment on above: Performed By: #### C BC ####[facility] [address] [place], [place] [address]Dr. Lori Sutton IG % 0.2 % Normal 0.0-0.5 [facility] Comment on above: Performed By: #### C BC ####[facility] [address] [place] [address]Dr. Lori Sutton LYMPH # 1.3 103/ul Normal 1.2-3.8 [facility] Comment on above: Performed By: #### C BC ####[facility] [address] [place] [address]Dr. Lori Sutton Lymphocytes/100 WBC (Bld) 22.9 % Normal 20.5-60.0 [facility] Comment on above: Performed By: #### C BC ####[facility] [address] [place], [place] [address]Dr. Lori Sutton MANUAL DIFF REQ NO Normal [facility] Comment on above: Performed By: #### C BC ####[facility] [address] [place], [place] [address]Dr. Lori Sutton MCH (RBC) [Entitic mass] 29.7 pg Normal 26.7-34.0 [facility] Comment on above: Performed By: #### C BC ####[facility] [address] [place], [place] [address]Dr. Estephaniaurbano Sutton MCHC (RBC) [Mass/Vol] 31.9 g/dL Normal 29.9-35.2 [facility] Comment on above: Performed By: #### C BC ####[facility] [address] [place], [place] [address]Dr. Lori Sutton MCV (RBC) [Entitic vol] 93.1 fL Normal 81.0-99.0 [facility] Comment on above: Performed By: #### C BC ####[facility] [address] [place], [place] [address]DrMelita Sutton MONO # 0.3 103/ul Normal 0.3-0.8 [facility] Comment on above: Performed By: #### C BC ####[facility] [address] [place] [address]Dr. Lori Sutton Monocytes/100 WBC (Bld) 4.7 % Normal 1.7-12.0 [facility] Comment on above: Performed By: #### C BC ####[facility] [address] [place] [address]Dr. Lori Sutton NEUT # 3.9 103/ul Normal 1.4-6.5 [facility] Comment on above: Performed By: #### C BC ####[facility] [address] [place] [address]Dr. Lori Sutton Neutrophils/100 WBC (Bld) 67.3 % Normal 43.0-75.0 [facility] Comment on above: Performed By: #### C BC ####[facility] [address] [place] [address]Dr. Lori Sutton Platelet mean volume (Bld) [Entitic vol] 10.5 fL Normal 9.5-13.5 [facility] Comment on above: Performed By: #### C BC ####[facility] [address] [place], [place] [address]Dr. Lori Sutton PLT 211 103/ul Normal 150-450 [facility] Comment on above: Performed By: #### C BC ####[facility] [address] [place], [place] [address]Dr. Lori Sutton RBC 4.95 106/ul Normal 4.20-5.40 [facility] Comment on above: Performed By: #### C BC ####[facility] [address] [place], [place] [address]Dr. Lori Sutton WBC 5.7 103/ul Normal 4.0-11.0 [facility] Comment on above: Performed By: #### C BC ####[facility] [address] [place] [address]Dr. Lori Sutton D-DIMERon 01-03-2023 D-DIMER 0.26 mg/L FEU Normal <=0.59 [facility] Comment on above: Performed By: #### D DIM ####[facility] [address] [place] [address]Dr. Lori Sutton D-DIMER COMMENTS SEE BELOW Normal [facility] Comment on above: Result Comment: Incr eases [...] generalized hospitalization. Performed By: #### D DIM ####[facility] [address] [place], [place] [address]Zu. Lori Sutton Office Visit (Cardiology)on 01-03-2023 Follow-up [...] Lead; Status:Active - Perform Order,Retrospective Authorization; Requested for:[id number]; SocHx: Never a smoker Tobacco Use Screening; Status:Complete; Done: [id number] Patient Instructions Continue same medications/treatment. Patient educated [...] up in 4-[address] Maxwell Medrano M.D. I, Karen Lau RN, am scribing for and in the presence of Dr. Maxwell Medrano The provider reviewed the following test(s) and result(s) with the patient: ECG Chief Complaint Patient is here today for a scheduled follow up History of Present Illness 82-year-old female with a past medical history of hypertension, hyperlipidemia. 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 Adjustment of her medical [...] therapy. Patient is being evaluated recently at [facility] for ablation therapy for atrial fibrillation. [...] possible applicat (more content not included)... Normal [employer] PROF 14(COMP METB)on 023 Albumin [Mass/Vol] 3.8 g/dL Normal 3.4-5.0 [facility] Comment on above: Performed By: #### C LESTER HSTROPN ####[facility] [address] [place] [address]Dr. Lori Sutton Albumin/Globulin [Mass ratio] 1.2 {ratio} Normal [facility] Comment on above: Performed By: #### C LESTER HSTROPN ####[facility] [address] [place] [address]Dr. Lori Sutton ALP [Catalytic activity/Vol] 101 U/L Normal 46-116 [facility] Comment on above: Performed By: #### C LESTER, HSTROPN ####[facility] [address] [place] [address]Dr. Lori Sutton ALT [Catalytic activity/Vol] 25 U/L Normal 14-59 [facility] Comment on above: Performed By: #### C LESTER, HSTROPN ####[facility] [address] [place] [address]DrMelita Sutton Anion gap [Moles/Vol] 15.5 mmol/L Normal Th e [facility] Comment on above: Performed By: #### C LESTER, HSTROPN ####[facility] [address] [place] [address]Dr. Lori Sutton AST [Catalytic activity/Vol] 24 U/L Normal 15-37 [facility] Comment on above: Performed By: #### C LESTER, HSTROPN ####[facility] [address] [place] [address]Dr. Lori Sutton Bilirubin [Mass/Vol] 0.8 mg/dL Normal 0.2-1.0 [facility] Comment on above: Performed By: #### C LESTER, HSTROPN ####[facility] [address] [place], [place] [address]Dr. Loir Sutton Calcium [Mass/Vol] 8.8 mg/dL Normal 8.5-10.1 [facility] Comment on above: Performed By: #### C LESTER, HSTROPN ####[facility] [address] [place] [address]Dr. Lori Sutton Chloride [Moles/Vol] 105 mmol/L Normal 98-107 [facility] Comment on above: Performed By: #### C LESTER, HSTROPN ####[facility] [address] [place] [address]Dr. Lori Sutton CO2 [Moles/Vol] 24.5 mmol/L Normal 21.0-32.0 [facility] Comment on above: Performed By: #### C LESTER, HSTROPN ####[facility] [address] [place] [address]Dr. Lori Sutton Creatinine [Mass/Vol] 1.28 mg/dL Critically high 0.55-1.02 [facility] Comment on above: Performed By: #### C LESTER, HSTROPN ####[facility] [address] [place] [address]Dr. Lori Sutton EGFR-AF ANGUILLAN 49 mL/min/1.73m2 Critically low >=60 [facility] Comment on above: Performed By: #### C LESTER, HSTROPN ####[facility] [address] [place] [address]Dr. Lori Sutton EGFR-NON AF ANGUILLAN 40 mL/min/1.73m2 Critically low >=60 [facility] Comment on above: Performed By: #### C MP, HSTROPN ####[facility] [address] [place] [address]Dr. Lori Sutton Globulin (S) [Mass/Vol] 3.2 g/dL Normal [facility] Comment on above: Performed By: #### C MP, HSTROPN ####[facility] [address] [place] [address]Dr. Lori Sutton Glucose [Mass/Vol] 230 mg/dL Critically high 74-106 T [facility] [place] Comment on above: Performed By: #### C MP, HSTROPN ####[facility] [address] [place] [address]Dr. Estephaniaurbano Sutton Potassium [Moles/Vol] 4.0 mmol/L Normal 3.5-5.1 [facility] Comment on above: Performed By: #### C MP, HSTROPN ####[facility] [address] [place] [address]Dr. Lori Sutton Protein [Mass/Vol] 7.0 g/dL Normal 6.4-8.2 [facility] Comment on above: Performed By: #### C MP, HSTROPN ####[facility] [address] [place] [address]Dr. Lori Sutton Sodium [Moles/Vol] 141 mmol/L Normal 136-145 [facility] Comment on above: Performed By: #### C MP, HSTROPN ####[facility] [address] [place] [address]Dr. Lori Sutton Urea nitrogen [Mass/Vol] 28.0 mg/dL Critically high 7.0-18.0 [facility] Comment on above: Performed By: #### C MP, HSTROPN ####[facility] [address] [place] [address]Dr. Lori Sutton Urea nitrogen/Creatinine [Mass ratio] 21.9 mg/mg Normal [facility] Comment on above: Performed By: #### C LESTER HSTROPN ####[facility] [address] [place] [address]Dr. Lori Sutton TROPONIN, HIGH SENSITIVITYon 01-03-2023 HSTROP 74.5 pg/mL Critically high 4.0-51.3 [facility] Comment on above: Result Comment: CUT- OFF POINTS HAVE BEEN ESTABLISHED BASED ON THE FOURTH UNIVERSAL DEFINITIONS OF MYOCARDIAL INFARCTION. THE UPPER REFERENCE LIMIT (URL) OF TROPONIN, DEFINED THE 99TH PERCENTILE OF cTnI DISTRIBUTION IN A REFERENCE POPULATION, HAS BEEN CONFIRMED THE DECISION THRESHOLD FOR [place] DIAGNOSIS. Performed By: #### C LESTER HSTROPN ####[facility] [address] [place], [place] [address]Dr. Lori Sutton Tobacco Screening.on 023 Fall risk assessment a) No falls within the last year [facility] Work Phone: Tobacco use status [facility] b) No [facility] Work Phone: Tobacco Screening. Yes [facility] Work Phone: AMYLASEon 01-02-2023 Amylase [Catalytic activity/Vol] 37 U/L Normal 25-115 [facility] Comment on above: Performed By: #### B CAPPER MACHINE OPERATOR, GERRY, CMP #### [facility] [address] [place] [address] Dr. Lori Sutton BNPon 01-02-2023 Natriuretic peptide B (Bld) [Mass/Vol] 690.0 pg/mL Normal <=1,800.0 [facility] Comment on above: Performed By: #### B CAPPER MACHINE OPERATOR, GERRY, CMP ####[facility] [address] [place] [address]Dr. Lori Sutton CBC AUTO DIFFon 01-02-2023 BASO # 0.0 103/ul Normal 0.0-0.1 [facility] Comment on above: Performed By: #### C BC #### [facility] [address] [place] [address] Dr. Lori Sutton Basophils/100 WBC (Bld) 0.6 % Normal 0.2-2.0 [facility] Comment on above: Performed By: #### C BC #### [facility] [address] [place] [address] Dr. Lori Sutton EO # 0.2 103/ul Normal 0.0-0.7 [facility] Comment on above: Performed By: #### C BC #### [facility] [address] [place] [address] Dr. Lori Sutton Eosinophils/100 WBC (Bld) 2.8 % Normal 0.9-7.0 [facility] Comment on above: Performed By: #### C BC #### [facility] [address] [place] [address] Dr. Lori Sutton Erythrocyte distribution width (RBC) [Ratio] 13.8 % Normal 11.0-15.0 [facility] Comment on above: Performed By: #### C BC #### [facility] [address] [place] [address] Dr. Lori Sutton Hematocrit (Bld) [Volume fraction] 46.3 % Normal 36.0-48.0 [facility] Comment on above: Performed By: #### C BC #### [facility] [address] [place] [address] Dr. Lori Sutton Hemoglobin (Bld) [Mass/Vol] 15.0 g/dL Normal 12.0-16.0 [facility] Comment on above: Performed By: #### C BC #### [facility] [address] [place] [address] Dr. Lori Sutton IG # 0.01 10e3/ul Normal 0.00-0.03 [facility] Comment on above: Performed By: #### C BC #### [facility] [address] [place] [address] Dr. Lori Sutton IG % 0.2 % Normal 0.0-0.5 [facility] Comment on above: Performed By: #### C BC #### [facility] [address] [place] [address] Dr. Lori Sutton LYMPH # 1.1 103/ul Critically low 1.2-3.8 [facility] Comment on above: Performed By: #### C BC #### [facility] [address] [place] [address] Dr. Lori Sutton Lymphocytes/100 WBC (Bld) 17.6 % Critically low 20.5-60.0 [facility] Comment on above: Performed By: #### C BC #### [facility] [address] [place] [address] Dr. Lori Sutton MANUAL DIFF REQ NO Normal [facility] Comment on above: Performed By: #### C BC #### [facility] [address] [place] [address] Dr. Lori Sutton MCH (RBC) [Entitic mass] 29.7 pg Normal 26.7-34.0 [facility] Comment on above: Performed By: #### C BC #### [facility] [address] [place] [address] Dr. Lori Sutton MCHC (RBC) [Mass/Vol] 32.4 g/dL Normal 29.9-35.2 [facility] Comment on above: Performed By: #### C BC #### [facility] [address] [place] [address] Dr. Lori Sutton MCV (RBC) [Entitic vol] 91.7 fL Normal 81.0-99.0 [facility] Comment on above: Performed By: #### C BC #### [facility] [address] [place] [address] Dr. Lori Sutton MONO # 0.4 103/ul Normal 0.3-0.8 [facility] Comment on above: Performed By: #### C BC #### [facility] [address] [place] [address] Dr. Lori Sutton Monocytes/100 WBC (Bld) 6.2 % Normal 1.7-12.0 [facility] Comment on above: Performed By: #### C BC #### [facility] [address] [place] [address] Dr. Lori Sutton NEUT # 4.6 103/ul Normal 1.4-6.5 [facility] Comment on above: Performed By: #### C BC #### [facility] [address] [place] [address] [address] Lori Sutton Neutrophils/100 WBC (Bld) 72.6 % Normal 43.0-75.0 [facility] Comment on above: Performed By: #### C BC #### [facility] [address] [place] [address] [address] Lori Sutton Platelet mean volume (Bld) [Entitic vol] 10.3 fL Normal 9.5-13.5 [facility] Comment on above: Performed By: #### C BC #### [facility] [address] [place] [address] Dr. Lori Sutton PLT 207 103/ul Normal 150-450 [facility] Comment on above: Performed By: #### C BC #### [facility] [address] [place] [address] [address] Lori Sutton RBC 5.05 106/ul Normal 4.20-5.40 [facility] Comment on above: Performed By: #### C BC #### [facility] [address] [place] [address] [address] Lori Sutton WBC 6.3 103/ul Normal 4.0-11.0 [facility] Comment on above: Performed By: #### C BC #### [facility] [address] [place] [address] [address] Lori Sutton PROF 14(COMP METB)on 023 Albumin [Mass/Vol] 3.9 g/dL Normal 3.4-5.0 [facility] Comment on above: Performed By: #### B CAPPER MACHINE OPERATOR, GERRY, CMP ####[facility] [address] [place] [address]Dr. Lori Sutton Albumin/Globulin [Mass ratio] 1.2 {ratio} Normal [facility] Comment on above: Performed By: #### B CAPPER MACHINE OPERATOR, GERRY, CMP ####[facility] [address] [place] [address]Dr. Lori Sutton ALP [Catalytic activity/Vol] 98 U/L Normal 46-116 [facility] Comment on above: Performed By: #### B CAPPER MACHINE OPERATOR, GERRY, CMP ####[facility] [address] [place] [address]Dr. Lori Sutton ALT [Catalytic activity/Vol] 24 U/L Normal 14-59 [facility] Comment on above: Performed By: #### B CAPPER MACHINE OPERATOR, GERRY, CMP ####[facility] [address] [place] [address]Dr. Lori Sutton Anion gap [Moles/Vol] 12.0 mmol/L Normal [facility] Comment on above: Performed By: #### B CAPPER MACHINE OPERATOR, GERRY, CMP ####[facility] [address] [place], [place] [address]Dr. Lori Sutton AST [Catalytic activity/Vol] 25 U/L Normal 15-37 [facility] Comment on above: Performed By: #### B CAPPER MACHINE OPERATOR, GERRY, CMP ####[facility] [address] [place], [place] [address]Dr. Lori Sutton Bilirubin [Mass/Vol] 0.8 mg/dL Normal 0.2-1.0 [facility] Comment on above: Performed By: #### B CAPPER MACHINE OPERATOR, GERRY, CMP ####[facility] [address] [place], [place] [address]Dr. Lori Sutton Calcium [Mass/Vol] 9.2 mg/dL Normal 8.5-10.1 [facility] Comment on above: Performed By: #### B CAPPER MACHINE OPERATOR, GERRY, CMP ####[facility] [address] [place], [place] [address]Dr. Lori Sutton Chloride [Moles/Vol] 107 mmol/L Normal 98-107 [facility] Comment on above: Performed By: #### B CAPPER MACHINE OPERATOR, GERRY, CMP ####[facility] [address] [place], [place] [address]Dr. Lori Sutton CO2 [Moles/Vol] 28.6 mmol/L Normal 21.0-32.0 [facility] Comment on above: Performed By: #### B CAPPER MACHINE OPERATOR, GERRY, CMP ####[facility] [address] [place] [address]Dr. Lori Sutton Creatinine [Mass/Vol] 1.08 mg/dL Critically high 0.55-1.02 [facility] Comment on above: Performed By: #### B CAPPER MACHINE OPERATOR, GERRY, CMP ####[facility] [address] [place], [place] [address]Dr. Lori Sutton EGFR-AF ANGUILLAN 59 mL/min/1.73m2 Critically low >=60 [facility] Comment on above: Performed By: #### B CAPPER MACHINE OPERATOR, GERRY, CMP ####[facility] [address] [place], [place] [address]Dr. Lori Sutton EGFR-NON AF ANGUILLAN 49 mL/min/1.73m2 Critically low >=60 [facility] Comment on above: Performed By: #### B CAPPER MACHINE OPERATOR, GERRY, CMP ####[facility] [id number] [place], [place] [address]Dr. Lori Sutton Globulin (S) [Mass/Vol] 3.2 g/dL Normal [facility] Comment on above: Performed By: #### B CAPPER MACHINE OPERATOR, GERRY, CMP ####[facility] [address] [place], [place] [address]Dr. Lori Sutton Glucose [Mass/Vol] 103 mg/dL Normal 74-106 [facility] Comment on above: Performed By: #### B CAPPER MACHINE OPERATOR, GERRY, CMP ####[facility] [address] [place], [place] [address]Dr. Lori Sutton Potassium [Moles/Vol] 4.6 mmol/L Normal 3.5-5.1 [facility] Comment on above: Performed By: #### B CAPPER MACHINE OPERATOR, GERRY, CMP ####[facility] [address] [place], [place] [address]Dr. Lori Sutton Protein [Mass/Vol] 7.1 g/dL Normal 6.4-8.2 [facility] Comment on above: Performed By: #### B CAPPER MACHINE OPERATOR, GERRY, CMP ####[facility] [address] [place], [place] [address]Dr. Lori Sutton Sodium [Moles/Vol] 143 mmol/L Normal 136-145 [facility] Comment on above: Performed By: #### B CAPPER MACHINE OPERATOR, GERRY, CMP ####[facility] [address] [place], [place] [address]Xi. Lori Sutton Urea nitrogen [Mass/Vol] 29.0 mg/dL Critically high 7.0-18.0 [facility] Comment on above: Performed By: #### B CAPPER MACHINE OPERATOR, GERRY, CMP ####[facility] [address] [place], [place] [address]Yl. Lori Sutton Urea nitrogen/Creatinine [Mass ratio] 26.9 mg/mg Normal [facility] Comment on above: Performed By: #### B CAPPER MACHINE OPERATOR, GERRY, CMP ####[facility] [address] [place], [place] [address]Ik. Lori Sutton XR CHEST 2 Von 01-02-2023 [...] ARI LEVY Date: 2023-01-02 12:33 Normal [facility] Office Visit (Cardiology)on 12-25-2022 Follow-up visit Diagnoses/Problems [...] AF includes Amiodarone (d/c?d for concerns of long term care social worker side effects), tikosyn (prolonged OTc), sotalol and DCCV (09/2022). Symptoms of her AF include fatigue and BRAY. Pt follows with Dr Stover for management of her AF. Pt has previously been on Amio but was concerned about senior living side effects. She was then put on [...] AV CONDUCTION @ 109 bpm Echo 08/2022 (Formerly [facility], 1928[facility]1983 ? [facility]): LVEF 40%, moderate anteroseptal hypokinesis with wall [...] PM S (more content not included)... Normal [facility] Alkaline phosphatase [Enzyma tic activity/volume] in Serum or PlasmaOrdered By: Wilbur Watson on 11-27-2022 ALP [Catalytic activity/Vol] 67 U/L 34-104 [facility] Amylase [Enzymatic activity/ volume] in Serum or PlasmaOrdered By: Wilbur Watson on 11-27-2022 Amylase [Catalytic activity/Vol] 24 U/L 29-103 [facility] Bilirubin.direct [Mass/volum e] in Serum or PlasmaOrdered By: Wilbur Watson on 11-27-2022 Bilirubin.direct [Mass/Vol] 0.20 mg/dL 0.03-0.18 [facility] Bilirubin.total [Mass/volume ] in Serum or PlasmaOrdered By: Wilbur Watson on 11-27-2022 Bilirubin [Mass/Vol] 0.8 mg/dL 0.3-1.0 [facility] Lipase [Enzymatic activity/v olume] in Serum or PlasmaOrdered By: Wilbur Watson on 11-27-2022 Lipase [Catalytic activity/Vol] 31.0 U/L 11.0-82.0 [facility] Serum or plasma non-glucuron idated bilirubin measurement (mass/volume)Ordered By: Wilbur Watson on 11-27-2022 Bilirubin.indirect [Mass/Vol] 0.6 mg/dL [facility] Basophils Auto (Bld) [#/Vol] Ordered By: Wilbur Watson on 11-20-2022 Basophils (Bld) [#/Vol] 0.1 10*3/uL 0.0-0.2 [facility] Basophils/100 WBC Auto (Bld) Ordered By: Wilbur Watson on 11-20-2022 Basophils/100 WBC (Bld) 0.9 % . [facility] Calcium [Mass/volume] in Ser um or PlasmaOrdered By: Wilbur Watson on 11-20-2022 Calcium [Mass/Vol] 9.5 mg/dL 8.6-10.3 [facility] Carbon dioxide, total [Moles /volume] in Serum or PlasmaOrdered By: Wilbur Watson on 11-20-2022 CO2 [Moles/Vol] 25.5 mmol/L 21.0-31.0 [facility] Chloride [Moles/volume] in S vaughn or PlasmaOrdered By: Wilbur Watson on 11-20-2022 Chloride [Moles/Vol] 107 mmol/L 98-107 [facility] Creatinine [Mass/volume] in Serum or PlasmaOrdered By: Wilbur Watson on 11-20-2022 Creatinine [Mass/Vol] 1.08 mg/dL 0.60-1.20 [facility] Eosinophils Auto (Bld) [#/Vo l]Ordered By: Wilbur Watson on 11-20-2022 Eosinophils (Bld) [#/Vol] 0.3 10*3/uL 0.0-0.45 [facility] Eosinophils/100 WBC Auto (Bl d)Ordered By: Wilbur Watson on 11-20-2022 Eosinophils/100 WBC (Bld) 3.6 % . [facility] Erythrocyte distribution wid th Auto (RBC) [Ratio]Ordered By: Wlibur Watson on 11-20-2022 Erythrocyte distribution width (RBC) [Ratio] 13.9 % 11.9-15.3 [facility] Glucose [Mass/volume] in Ser um or PlasmaOrdered By: Wilbur Watson on 11-20-2022 Glucose [Mass/Vol] 91 mg/dL 70-100 [facility] Comment on above: ADA recommended refe rence rangeRandom Glucose Reference Range is dependent on time and content of last meal. Glucose of more than 200 mg/dL in a nonstressed, ambulatory subject supports the diagnosis of Diabetes Mellitus. Hematocrit Auto (Bld) [Volum e fraction]Ordered By: Wilbur Watson on 11-20-2022 Hematocrit (Bld) [Volume fraction] 46.1 % 34.0-46.4 [facility] Hemoglobin [Mass/volume] in BloodOrdered By: Wilbur Watson on 11-20-2022 Hemoglobin (Bld) [Mass/Vol] 15.2 g/dL 11.8-15.4 [facility] Leukocytes [#/volume] correc anne marie for nucleated erythrocytes in Blood by Automated counOrdered By: Wilbur Watson on 11-20-2022 WBC corrected for nucl RBC Auto (Bld) [#/Vol] 7.0 10*3/uL 3.8-11.6 [facility] Lymphocytes Auto (Bld) [#/Vo l]Ordered By: Wilbur Watson on 11-20-2022 Lymphocytes (Bld) [#/Vol] 1.6 10*3/uL 1.00-4.8 [facility] Lymphocytes/100 WBC Auto (Bl d)Ordered By: Wilbur Watson on 11-20-2022 Lymphocytes/100 WBC (Bld) 23.1 % . [facility] MCH Auto (RBC) [Entitic mass ]Ordered By: Wilbur Watson on 11-20-2022 MCH (RBC) [Entitic mass] 29.4 pg 24.7-34.3 [facility] MCHC Auto (RBC) [Mass/Vol]Or dered By: Wilbur Watson on 11-20-2022 MCHC (RBC) [Mass/Vol] 33.0 g/dL 32.0-35.0 [facility] MCV Auto (RBC) [Entitic vol] Ordered By: Wilbur Watson on 11-20-2022 MCV (RBC) [Entitic vol] 88.9 fL 80-100 [facility] Monocytes Auto (Bld) [#/Vol] Ordered By: Wilbur Watson on 11-20-2022 Monocytes (Bld) [#/Vol] 0.5 10*3/uL 0.0-0.8 [facility] Monocytes/100 WBC Auto (Bld) Ordered By: Wilbur Watson on 11-20-2022 Monocytes/100 WBC (Bld) 7.4 % . [facility] Neutrophils Auto (Bld) [#/Vo l]Ordered By: Wilbur Watson on 11-20-2022 Neutrophils (Bld) [#/Vol] 4.6 10*3/uL 1.8-7.7 [facility] Neutrophils/100 WBC Auto (Bl d)Ordered By: Wilbur Watson on 11-20-2022 Neutrophils/100 WBC (Bld) 65.0 % . [facility] No Panel InformationOrdered By: Wilbur Watson on 11-20-2022 Estimated GFR (CKD-EPI) 51.927 mL/Min [facility] Creatinine Clearance (Chem N/A [facility] Nucleated erythrocytes [Pres ence] in Blood by Automated countOrdered By: Wilbur Watson on 11-20-2022 Nucleated RBC Auto Ql (Bld) 0.1 /100{WBC} 0-0.5 [facility] Platelet mean volume Auto (B ld) [Entitic vol]Ordered By: Wilbur Watson on 11-20-2022 Platelet mean volume (Bld) [Entitic vol] 9.1 fL 6.3-10.7 [facility] Platelets Auto (Bld) [#/Vol] Ordered By: Wilbur Watson on 11-20-2022 Platelets (Bld) [#/Vol] 220 10*3/uL 150-450 [facility] Potassium [Moles/volume] in Serum or PlasmaOrdered By: Wilbur Watson on 11-20-2022 Potassium [Moles/Vol] 4.5 mmol/L 3.5-5.1 [facility] RBC Auto (Bld) [#/Vol]Ordere d By: Wilbur Watson on 11-20-2022 RBC (Bld) [#/Vol] 5.18 10*6/uL 3.60-5.00 [facility] Serum or plasma anion gap de terminationOrdered By: Wilbur Watson on 11-20-2022 Anion gap [Moles/Vol] 12.0 mmol/L 6.0-15.0 [facility] Sodium [Moles/volume] in Ser um or PlasmaOrdered By: Wilbur Watson on 11-20-2022 Sodium [Moles/Vol] 140 mmol/L 136-145 [facility] Urea nitrogen [Mass/volume] in Serum or PlasmaOrdered By: Wilbur Watson on 11-20-2022 Urea nitrogen [Mass/Vol] 31 mg/dL 7-25 [facility] WBC Auto (Bld) [#/Vol]Ordere d By: Wilbur Watson on 11-20-2022 WBC (Bld) [#/Vol] 7.0 10*3/uL 3.8-11.6 [facility] MG MAMM SCREEN 3D MARYBETH CADon 10-16-2022 MG MAMM SCREEN 3D MARYBETH CAD Patient: LESA GOLDEN Exam Date: 10/16/2022 : 1940 Gender:F Ordering : DR CHESTER العلي D.O. Admission #: [id number] Family : Order #: [id number] CLICK HERE TO VIEW EXAM RADIOLOGY REPORT [...] sarcoma cancer at age 45. LOCATION: [facility] BREAST COMPOSITION: Extremely dense, which lowers the [...] MD on 10/16/2022 at 14:09 Normal [facility] Office Visit (Cardiology)on 10-13-2022 Follow-up visit Diagnoses/Problems [...] Weight Tips; Status:Complete - Retrospective Authorization; Done: [id number] Some eating tips that can help you lose weight.; Status:Complete - Retrospective Authorization; Done: [id number] Gallstones General Surgery Referral Evaluation and Treatment Evaluate AND Treat Status: Hold For - Scheduling,Retrospective Authorization Requested for: [id number] Persistent atrial fibrillation Renew: Sotalol HCl - 80 MG Oral Tablet (Betapace); TAKE 1 TABLET BY MOUTH TWICE DAILY IO EKG Electrocardiogram- 12 Lead; Status:Complete; Done: [id number] SocHx: Never a smoker Tobacco Use Screening; Status:Complete; Done: [id number] Patient Instructions Please bring all medicines, vitamins, [...] Complaint LESA GOLDEN is being seen for [facility] [place]. History of Present Illness Patient [...] Medication fentany (more content not included)... Normal [employer] Tobacco Screening.on 023 Fall risk assessment a) No falls within the last year -[facility]-Sandu evelin 250 DO Work Phone: Tobacco use status [facility] b) No -[facility]u evelin 250 DO Work Phone: Tobacco Screening. Yes [facility]-Sandu evelin 250 DO Work Phone: Tobacco Screening.on 023 Fall risk assessment a) No falls within the last year [facility]-Sandu evelin 250 DO Work Phone: Tobacco use status [facility] b) No -[facility]-Sandu evelin 250 DO Work Phone: Basophils Auto (Bld) [#/Vol] Ordered By: Sam Dukes on 09-21-2022 Basophils (Bld) [#/Vol] 0.0 10*3/uL 0.0-0.2 [facility] Basophils/100 WBC Auto (Bld) Ordered By: Sam Dukes on 09-21-2022 Basophils/100 WBC (Bld) 0.7 % . [facility] Creatine kinase [Enzymatic a ctivity/volume] in Serum or PlasmaOrdered By: Debbie Mac on 09-21-2022 CK [Catalytic activity/Vol] 76 U/L 22-269 [facility] Creatinine and Glomerular fi ltration rate.predicted panel (S/P/Bld)Ordered By: Sam Dukes on 09-21-2022 Creatinine [Mass/Vol] 1.08 mg/dL 0.44-1.03 [facility] Eosinophils Auto (Bld) [#/Vo l]Ordered By: Sam Dukes on 09-21-2022 Eosinophils (Bld) [#/Vol] 0.3 10*3/uL 0.0-0.45 [facility] Eosinophils/100 WBC Auto (Bl d)Ordered By: Sam Dukes on 09-21-2022 Eosinophils/100 WBC (Bld) 4.6 % . [facility] Erythrocyte distribution wid th Auto (RBC) [Ratio]Ordered By: Sam Dukes on 09-21-2022 Erythrocyte distribution width (RBC) [Ratio] 13.5 % 11.9-15.3 [facility] Estimated glomerular filtrat ion rate (GFR) non- AmericanOrdered By: Sam Dukes on 09-21-2022 GFR/1.73 sq M.predicted among non-blacks MDRD (S/P/Bld) [Vol rate/Area] 49 mL/Min [facility] Hematocrit Auto (Bld) [Volum e fraction]Ordered By: Sam Dukes on 09-21-2022 Hematocrit (Bld) [Volume fraction] 39.6 % 34.0-46.4 [facility] Hemoglobin [Mass/volume] in BloodOrdered By: Sam Dukes on 09-21-2022 Hemoglobin (Bld) [Mass/Vol] 13.0 g/dL 11.8-15.4 [facility] Laboratory - Chemistry and C hemistry - challengeOrdered By: Debbie Mac on 09-21-2022 Natriuretic peptide B (Bld) [Mass/Vol] 203.0 pg/mL 5-100 [facility] Laboratory - Chemistry and C hemistry - challengeOrdered By: Sam Dukes on 09-21-2022 Magnesium [Mass/Vol] 1.8 mg/dL 1.6-2.6 [facility] Leukocytes [#/volume] correc anne marie for nucleated erythrocytes in Blood by Automated counOrdered By: Sam Dukes on 09-21-2022 WBC corrected for nucl RBC Auto (Bld) [#/Vol] 5.7 10*3/uL 3.8-11.6 [facility] Lymphocytes Auto (Bld) [#/Vo l]Ordered By: Sam Dukes on 09-21-2022 Lymphocytes (Bld) [#/Vol] 1.1 10*3/uL 1.00-4.8 [facility] Lymphocytes/100 WBC Auto (Bl d)Ordered By: Sam Dukes on 09-21-2022 Lymphocytes/100 WBC (Bld) 18.9 % . [facility] MCH Auto (RBC) [Entitic mass ]Ordered By: Sam Dukes on 09-21-2022 MCH (RBC) [Entitic mass] 29.6 pg 24.7-34.3 [facility] MCHC Auto (RBC) [Mass/Vol]Or dered By: Sam Dukes on 09-21-2022 MCHC (RBC) [Mass/Vol] 32.9 g/dL 32.0-35.0 [facility] MCV Auto (RBC) [Entitic vol] Ordered By: Sam Dukes on 09-21-2022 MCV (RBC) [Entitic vol] 89.8 fL 80-100 [facility] Monocytes Auto (Bld) [#/Vol] Ordered By: Sam Dukes on 09-21-2022 Monocytes (Bld) [#/Vol] 0.4 10*3/uL 0.0-0.8 [facility] Monocytes/100 WBC Auto (Bld) Ordered By: Sam Dukes on 09-21-2022 Monocytes/100 WBC (Bld) 7.6 % . [facility] Neutrophils Auto (Bld) [#/Vo l]Ordered By: Sam Dukes on 09-21-2022 Neutrophils (Bld) [#/Vol] 3.9 10*3/uL 1.8-7.7 [facility] Neutrophils/100 WBC Auto (Bl d)Ordered By: Sam Dukes on 09-21-2022 Neutrophils/100 WBC (Bld) 68.2 % . [facility] No Panel InformationOrdered By: Sam Dukes on 09-21-2022 Estimated GFR () 59 mL/Min [facility] Comment on above: GFR estimated refere nce range: According to KDOQI guidelines, <60 ml/min/1.73m2 is sufficient to diagnose a patient with chronic kidney disease. Pharmacy Creatinine Clearance (Chem 37.27 [facility] Nucleated erythrocytes [Pres ence] in Blood by Automated countOrdered By: Sam Dukes on 09-21-2022 Nucleated RBC Auto Ql (Bld) 0.0 /100{WBC} 0-0.5 [facility] Platelet mean volume Auto (B ld) [Entitic vol]Ordered By: Sam Dukes on 09-21-2022 Platelet mean volume (Bld) [Entitic vol] 9.5 fL 6.3-10.7 [facility] Platelets Auto (Bld) [#/Vol] Ordered By: Sam Dukes on 09-21-2022 Platelets (Bld) [#/Vol] 173 10*3/uL 150-450 [facility] RBC Auto (Bld) [#/Vol]Ordere d By: Sam Dukes on 09-21-2022 RBC (Bld) [#/Vol] 4.41 10*6/uL 3.60-5.00 [facility] Serum or plasma anion gap de terminationOrdered By: Sam Dukes on 09-21-2022 Anion gap [Moles/Vol] 11.0 mmol/L 6.0-15.0 [facility] Serum or plasma calcium mitch urement (mass/volume)Ordered By: Sam Dukes on 09-21-2022 Calcium [Mass/Vol] 8.6 mg/dL 8.2-10.2 [facility] Serum or plasma chloride carlitos surement (moles/volume)Ordered By: Sam Dukes on 09-21-2022 Chloride [Moles/Vol] 107 mmol/L 95-114 [facility] Serum or plasma creatine kin ase MB (CKMB)/total creatine kinase (CK) ratio by calculaOrdered By: Debbie Mac on 09-21-2022 CK.MB Calc [Catalytic fraction] 2.5 % 0.00-2.50 [facility] Serum or plasma creatine kin ase MB measurement (mass/volume)Ordered By: Debbie Mac on 09-21-2022 CK.MB [Mass/Vol] 1.9 ng/mL 0.6-6.3 [facility] Serum or plasma glucose mitch urement (mass/volume)Ordered By: Sam Dukes on 09-21-2022 Glucose [Mass/Vol] 94 mg/dL 70-100 [facility] Comment on above: ADA recommended refe rence rangeRandom Glucose Reference Range is dependent on time and content of last meal. Glucose of more than 200 mg/dL in a nonstressed, ambulatory subject supports the diagnosis of Diabetes Mellitus. Serum or plasma potassium me asurement (moles/volume)Ordered By: Sam Dukes on 09-21-2022 Potassium [Moles/Vol] 3.9 mmol/L 3.5-5.1 [facility] Serum or plasma sodium measu rement (moles/volume)Ordered By: Sma Dukes on 09-21-2022 Sodium [Moles/Vol] 137 mmol/L 136-146 [facility] Serum or plasma total carbon dioxide measurement (moles/volume)Ordered By: Sam Dukes on 09-21-2022 CO2 [Moles/Vol] 22.9 mmol/L 22.0-30.0 [facility] Serum or plasma urea nitroge n measurement (mass/volume)Ordered By: Sam Dukes on 09-21-2022 Urea nitrogen [Mass/Vol] 18 mg/dL 9-23 [facility] Troponin I.cardiac [Mass/vol ume] in Serum or Plasma by High sensitivity methodOrdered By: Debbie Mac on 09-21-2022 Troponin I.cardiac High sensitivity method [Mass/Vol] 9 pg/mL 0-15 [facility] WBC Auto (Bld) [#/Vol]Ordere d By: Sam Dukes on 09-21-2022 WBC (Bld) [#/Vol] 5.7 10*3/uL 3.8-11.6 [facility] Glucose Glucometer (BldC) [M ass/Vol]Ordered By: Sam Dukes on 09-19-2022 Glucose [Mass/Vol] 93 mg/dL [facility] Comment on above: Random Glucose Refer ence Range is dependent on time and content of last meal. Glucose of more than 200 mg/dL in a nonstressed, ambulatory subject supports the diagnosis of Diabetes Mellitus. No Panel InformationOrdered By: Sam Dukes on 09-19-2022 Bedside Glucose Comment Glu2: cleaned meter [facility] Activated partial thrombopla stin time (aPTT) in platelet poor plasma by coagulation aOrdered By: Indy Rolon on 09-17-2022 aPTT Coag (PPP) [Time] 40.4 s 25.1-36.5 [facility] Automated erythrocytes count in urine sediment (number/area)Ordered By: Indy Rolon on 09-17-2022 RBC Auto (Urine sed) [#/Area] 10-19 [HPF] 0-4 [facility] Automated leukocytes count i n urine sediment (number/area)Ordered By: Indy Rolon on 09-17-2022 WBC Auto (Urine sed) [#/Area] 20-49 [HPF] 0-4 [facility] Automated urine hyaline cast s count (number/volume)Ordered By: Indy Rolon on 09-17-2022 Hyaline casts Auto (U) [#/Vol] 3-4 [LPF] 0-1 [facility] Basophils Auto (Bld) [#/Vol] Ordered By: Indy Rolon on 09-17-2022 Basophils (Bld) [#/Vol] 0.0 10*3/uL 0.0-0.2 [facility] Basophils/100 WBC Auto (Bld) Ordered By: Indy Rolon on 09-17-2022 Basophils/100 WBC (Bld) 0.6 % . [facility] Bilirubin Test strip Ql (U)O rdered By: Indy Rolon on 09-17-2022 Bilirubin Ql (U) Negative Negative [facility] Body fluid albumin measureme nt (mass/volume)Ordered By: Indy Rolon on 09-17-2022 Albumin (Body fld) [Mass/Vol] 4.1 g/dL 3.2-5.5 [facility] Casts typing in urine sedime nt by light microscopyOrdered By: Indy Rolon on 09-17-2022 Casts LM Nom (Urine sed) None seen [LPF] None Seen [facility] Color Auto (U)Ordered By: Jordan Rolon on 09-17-2022 Color (U) Dark yellow Yellow [facility] Creatinine and Glomerular fi ltration rate.predicted panel (S/P/Bld)Ordered By: Indy Rolon on 09-17-2022 Creatinine [Mass/Vol] 1.23 mg/dL 0.44-1.03 [facility] Eosinophils Auto (Bld) [#/Vo l]Ordered By: Indy Rolon on 09-17-2022 Eosinophils (Bld) [#/Vol] 0.3 10*3/uL 0.0-0.45 [facility] Eosinophils/100 WBC Auto (Bl d)Ordered By: Indy Rolon on 09-17-2022 Eosinophils/100 WBC (Bld) 3.5 % . [facility] Erythrocyte distribution wid th Auto (RBC) [Ratio]Ordered By: Indy Rolon on 09-17-2022 Erythrocyte distribution width (RBC) [Ratio] 13.5 % 11.9-15.3 [facility] Estimated glomerular filtrat ion rate (GFR) non- AmericanOrdered By: Indy Rolon on 09-17-2022 GFR/1.73 sq M.predicted among non-blacks MDRD (S/P/Bld) [Vol rate/Area] 42 mL/Min [facility] Globulin Calc (S) [Mass/Vol] Ordered By: Indy Rolon on 09-17-2022 Globulin (S) [Mass/Vol] 2.2 g/dL [facility] Hematocrit Auto (Bld) [Volum e fraction]Ordered By: Indy Rolon on 09-17-2022 Hematocrit (Bld) [Volume fraction] 43.5 % 34.0-46.4 [facility] Hemoglobin [Mass/volume] in BloodOrdered By: Indy Rolon on 09-17-2022 Hemoglobin (Bld) [Mass/Vol] 14.4 g/dL 11.8-15.4 [facility] Ketones Auto test strip (U) [Mass/Vol]Ordered By: Indy Rolon on 09-17-2022 Ketones (U) [Mass/Vol] Trace Negative [facility] Laboratory - Chemistry and C hemistry - challengeOrdered By: Indy Rolon on 09-17-2022 Magnesium [Mass/Vol] 2.1 mg/dL 1.6-2.6 [facility] Natriuretic peptide B (Bld) [Mass/Vol] 292.0 pg/mL 5-100 [facility] Laboratory - CoagulationOrde red By: Indy Rolon on 09-17-2022 PT Coag (PPP) [Time] 23.4 s 9.0-12.9 [facility] Leukocytes [#/volume] correc anne marie for nucleated erythrocytes in Blood by Automated counOrdered By: Indy Rolon on 09-17-2022 WBC corrected for nucl RBC Auto (Bld) [#/Vol] 8.0 10*3/uL 3.8-11.6 [facility] Lymphocytes Auto (Bld) [#/Vo l]Ordered By: Indy Rolon on 09-17-2022 Lymphocytes (Bld) [#/Vol] 1.2 10*3/uL 1.00-4.8 [facility] Lymphocytes/100 WBC Auto (Bl d)Ordered By: Indy Rooln on 09-17-2022 Lymphocytes/100 WBC (Bld) 15.2 % . [facility] MCH Auto (RBC) [Entitic mass ]Ordered By: Indy Rolon on 09-17-2022 MCH (RBC) [Entitic mass] 30.1 pg 24.7-34.3 [facility] MCHC Auto (RBC) [Mass/Vol]Or dered By: Inyd Rolon on 09-17-2022 MCHC (RBC) [Mass/Vol] 33.2 g/dL 32.0-35.0 [facility] MCV Auto (RBC) [Entitic vol] Ordered By: Indy Rolon on 09-17-2022 MCV (RBC) [Entitic vol] 90.6 fL 80-100 [facility] Monocyte distribution width [Entitic volume] in Blood by AutomatedOrdered By: Indy Rolon on 09-17-2022 Monocyte distribution width Auto (Bld) [Entitic vol] 19.67 % 0.00-20.00 [facility] Monocytes Auto (Bld) [#/Vol] Ordered By: Indy Rolon on 09-17-2022 Monocytes (Bld) [#/Vol] 0.6 10*3/uL 0.0-0.8 [facility] Monocytes/100 WBC Auto (Bld) Ordered By: Indy Rolon on 09-17-2022 Monocytes/100 WBC (Bld) 7.1 % . [facility] Neutrophils Auto (Bld) [#/Vo l]Ordered By: Indy Rolon on 09-17-2022 Neutrophils (Bld) [#/Vol] 5.9 10*3/uL 1.8-7.7 [facility] Neutrophils/100 WBC Auto (Bl d)Ordered By: Indy Rolon on 09-17-2022 Neutrophils/100 WBC (Bld) 73.6 % . [facility] Nitrite Test strip Ql (U)Ord ered By: Indy Rolon on 09-17-2022 Nitrite Ql (U) Negative Negative [facility] No Panel InformationOrdered By: Indy Rolon on 09-17-2022 Estimated GFR () 51 mL/Min [facility] Comment on above: GFR estimated refere nce range: According to KDOQI guidelines, <60 ml/min/1.73m2 is sufficient to diagnose a patient with chronic kidney disease. Pharmacy Creatinine Clearance (Chem N/A [facility] Nucleated erythrocytes [Pres ence] in Blood by Automated countOrdered By: Indy Rolon on 09-17-2022 Nucleated RBC Auto Ql (Bld) 0.3 /100{WBC} 0-0.5 [facility] Platelet mean volume Auto (B ld) [Entitic vol]Ordered By: Indy Rolon on 09-17-2022 Platelet mean volume (Bld) [Entitic vol] 9.4 fL 6.3-10.7 [facility] Platelet poor plasma interna tional normalized ratio (INR) by coagulation assay (relatOrdered By: Indy Rolon on 09-17-2022 INR Coag (PPP) [Relative time] 2.0 {INR} [facility] Comment on above: INR Therapeutic Rang e [...] 09-17-2022 Platelets (Bld) [#/Vol] 203 10*3/uL 150-450 [facility] Protein Auto test strip (U) [Mass/Vol]Ordered By: Indy Rolon on 09-17-2022 Protein (U) [Mass/Vol] Trace mg/dL Negative [facility] Protein [Mass/volume] in Ser um or PlasmaOrdered By: Indy Rolon on 09-17-2022 Protein [Mass/Vol] 6.3 g/dL 6.1-7.9 [facility] RBC Auto (Bld) [#/Vol]Ordere d By: Indy Rolon on 09-17-2022 RBC (Bld) [#/Vol] 4.80 10*6/uL 3.60-5.00 [facility] Serum or plasma alanine mahmood otransferase measurement without P-5'-P (enzymatic activiOrdered By: Indy Rolon on 09-17-2022 ALT No additional P-5'-P [Catalytic activity/Vol] 20 U/L 10-60 [facility] Serum or plasma albumin/glob ulin mass ratioOrdered By: Indy Rolon on 09-17-2022 Albumin/Globulin [Mass ratio] 1.9 {ratio} [facility] Serum or plasma alkaline mia sphatase measurement (enzymatic activity/volume)Ordered By: Indy Rolon on 09-17-2022 ALP [Catalytic activity/Vol] 79 U/L 32-92 [facility] Serum or plasma anion gap de terminationOrdered By: Indy Rolon on 09-17-2022 Anion gap [Moles/Vol] 14.2 mmol/L 6.0-15.0 [facility] Serum or plasma aspartate am inotransferase measurement (enzymatic activity/volume)Ordered By: Indy Rolon on 09-17-2022 AST [Catalytic activity/Vol] 28 U/L 10-42 [facility] Serum or plasma calcium mitch urement (mass/volume)Ordered By: Indy Rolon on 09-17-2022 Calcium [Mass/Vol] 9.4 mg/dL 8.2-10.2 [facility] Serum or plasma chloride carlitos surement (moles/volume)Ordered By: Indy Rolon on 09-17-2022 Chloride [Moles/Vol] 103 mmol/L 95-114 [facility] Serum or plasma glucose mitch urement (mass/volume)Ordered By: Indy Rolon on 09-17-2022 Glucose [Mass/Vol] 94 mg/dL 70-100 [facility] Comment on above: ADA recommended refe rence rangeRandom Glucose Reference Range is dependent on time and content of last meal. Glucose of more than 200 mg/dL in a nonstressed, ambulatory subject supports the diagnosis of Diabetes Mellitus. Serum or plasma potassium me asurement (moles/volume)Ordered By: Indy Rolon on 09-17-2022 Potassium [Moles/Vol] 4.7 mmol/L 3.5-5.1 [facility] Serum or plasma sodium measu rement (moles/volume)Ordered By: Indy Rolon on 09-17-2022 Sodium [Moles/Vol] 138 mmol/L 136-146 [facility] Serum or plasma total biliru bin measurement (mass/volume)Ordered By: Indy Rolon on 09-17-2022 Bilirubin [Mass/Vol] 1.1 mg/dL 0.3-1.2 [facility] Serum or plasma total carbon dioxide measurement (moles/volume)Ordered By: Indy Rolon on 09-17-2022 CO2 [Moles/Vol] 25.5 mmol/L 22.0-30.0 [facility] Serum or plasma urea nitroge n measurement (mass/volume)Ordered By: Indy Rolon on 09-17-2022 Urea nitrogen [Mass/Vol] 24 mg/dL 9-23 [facility] Specific gravity Auto test s trip (U) [Rel density]Ordered By: Indy Rolon on 09-17-2022 Specific gravity (U) [Rel density] 1.024 1.001-1.03 0 [facility] Squamous epithelial cells de tection in urine sediment by light microscopyOrdered By: Indy Rolon on 09-17-2022 Epithelial cells.squamous LM Ql (Urine sed) 10-19 [HPF] 0-2 [facility] Troponin I.cardiac [Mass/vol ume] in Serum or Plasma by High sensitivity methodOrdered By: Indy Rolon on 09-17-2022 Troponin I.cardiac High sensitivity method [Mass/Vol] 8 pg/mL 0-15 [facility] Urine bacteria detection by automated methodOrdered By: Indy Rolon on 09-17-2022 Bacteria Auto Ql (U) 3+ None Seen [facility] Urine clarity by refractomet ry automatedOrdered By: nIdy Rolon on 09-17-2022 Clarity Refractometry automated (U) Cloudy Clear [facility] Urine culture routineOrdered By: Indy Rolon on 09-17-2022 Bacteria identified Cx Nom (U) Escherichia coli [facility] Bacteria identified Cx Nom (U) Escherichia coli [facility] Urine glucose measurement by automated test strip (mass/volume)Ordered By: Indy Rolon on 09-17-2022 Glucose Auto test strip (U) [Mass/Vol] Normal mg/dL Normal [facility] Urine hemoglobin detection b y automated test stripOrdered By: Indy Rolon on 09-17-2022 Hemoglobin Auto test strip Ql (U) Trace Negative [facility] Urine leukocyte esterase det ection by automated test stripOrdered By: Indy Rolon on 09-17-2022 Leukocyte esterase Auto test strip Ql (U) 3+ Negative [facility] Urobilinogen Auto test strip (U) [Mass/Vol]Ordered By: Indy Rolon on 09-17-2022 Urobilinogen (U) [Mass/Vol] Normal mg/dL Normal [facility] WBC Auto (Bld) [#/Vol]Ordere d By: Indy Rolon on 09-17-2022 WBC (Bld) [#/Vol] 8.0 10*3/uL 3.8-11.6 [facility] Yeast detection in urine sed iment by light microscopyOrdered By: Indy Rolon on 09-17-2022 Yeast LM Ql (Urine sed) Rare [HPF] None Seen [facility] pH Auto test strip (U)Ordere d By: Indy Rolon on 09-17-2022 pH (U) 5.5 [pH] 5.0-9.0 [facility] Basophils Auto (Bld) [#/Vol] Ordered By: Jay Ceja on 09-05-2022 Basophils (Bld) [#/Vol] 0.0 10*3/uL 0.0-0.2 [facility] Basophils/100 WBC Auto (Bld) Ordered By: Jay Ceja on 01-17-2023 Basophils/100 WBC (Bld) 0.9 % . [facility] Creatinine and Glomerular fi ltration rate.predicted panel (S/P/Bld)Ordered By: Jay Ceja on 09-05-2022 Creatinine [Mass/Vol] 1.57 mg/dL 0.44-1.03 [facility] Eosinophils Auto (Bld) [#/Vo l]Ordered By: Jay Ceja on 09-05-2022 Eosinophils (Bld) [#/Vol] 0.3 10*3/uL 0.0-0.45 [facility] Eosinophils/100 WBC Auto (Bl d)Ordered By: Jay Ceja on 09-05-2022 Eosinophils/100 WBC (Bld) 4.7 % . [facility] Erythrocyte distribution wid th Auto (RBC) [Ratio]Ordered By: Jay Ceja on 09-05-2022 Erythrocyte distribution width (RBC) [Ratio] 13.8 % 11.9-15.3 [facility] Estimated glomerular filtrat ion rate (GFR) non- AmericanOrdered By: Jay Ceja on 09-05-2022 GFR/1.73 sq M.predicted among non-blacks MDRD (S/P/Bld) [Vol rate/Area] 32 mL/Min [facility] Hematocrit Auto (Bld) [Volum e fraction]Ordered By: Jay Ceja on 09-05-2022 Hematocrit (Bld) [Volume fraction] 42.4 % 34.0-46.4 [facility] Hemoglobin [Mass/volume] in BloodOrdered By: Jya Ceja on 09-05-2022 Hemoglobin (Bld) [Mass/Vol] 14.0 g/dL 11.8-15.4 [facility] Leukocytes [#/volume] correc anne marie for nucleated erythrocytes in Blood by Automated counOrdered By: Jay Ceja on 09-05-2022 WBC corrected for nucl RBC Auto (Bld) [#/Vol] 5.6 10*3/uL 3.8-11.6 [facility] Lymphocytes Auto (Bld) [#/Vo l]Ordered By: Jay Ceja on 09-05-2022 Lymphocytes (Bld) [#/Vol] 1.4 10*3/uL 1.00-4.8 [facility] Lymphocytes/100 WBC Auto (Bl d)Ordered By: Jay Ceja on 09-05-2022 Lymphocytes/100 WBC (Bld) 25.6 % . [facility] MCH Auto (RBC) [Entitic mass ]Ordered By: Jay Ceja on 09-05-2022 MCH (RBC) [Entitic mass] 29.7 pg 24.7-34.3 [facility] MCHC Auto (RBC) [Mass/Vol]Or dered By: Jay Ceja on 09-05-2022 MCHC (RBC) [Mass/Vol] 32.9 g/dL 32.0-35.0 [facility] MCV Auto (RBC) [Entitic vol] Ordered By: Jay Ceja on 09-05-2022 MCV (RBC) [Entitic vol] 90.2 fL 80-100 [facility] Monocytes Auto (Bld) [#/Vol] Ordered By: Jay Ceja on 09-05-2022 Monocytes (Bld) [#/Vol] 0.5 10*3/uL 0.0-0.8 [facility] Monocytes/100 WBC Auto (Bld) Ordered By: Jay Ceja on 09-05-2022 Monocytes/100 WBC (Bld) 9.7 % . [facility] Neutrophils Auto (Bld) [#/Vo l]Ordered By: Jay Ceja on 09-05-2022 Neutrophils (Bld) [#/Vol] 3.3 10*3/uL 1.8-7.7 [facility] Neutrophils/100 WBC Auto (Bl d)Ordered By: Jay Ceja on 09-05-2022 Neutrophils/100 WBC (Bld) 59.1 % . [facility] No Panel InformationOrdered By: Jay Ceja on 09-05-2022 Estimated GFR () 38 mL/Min [facility] Comment on above: GFR estimated refere nce range: According to KDOQI guidelines, <60 ml/min/1.73m2 is sufficient to diagnose a patient with chronic kidney disease. Pharmacy Creatinine Clearance (Chem 24.80 [facility] Nucleated erythrocytes [Pres ence] in Blood by Automated countOrdered By: Jay Ceja on 09-05-2022 Nucleated RBC Auto Ql (Bld) 0.2 /100{WBC} 0-0.5 [facility] Platelet mean volume Auto (B ld) [Entitic vol]Ordered By: Jay Ceja on 09-05-2022 Platelet mean volume (Bld) [Entitic vol] 9.2 fL 6.3-10.7 [facility] Platelets Auto (Bld) [#/Vol] Ordered By: Jay Ceja on 09-05-2022 Platelets (Bld) [#/Vol] 190 10*3/uL 150-450 [facility] RBC Auto (Bld) [#/Vol]Ordere d By: Jay Ceja on 09-05-2022 RBC (Bld) [#/Vol] 4.70 10*6/uL 3.60-5.00 [facility] Serum or plasma anion gap de terminationOrdered By: Jay Ceja on 09-05-2022 Anion gap [Moles/Vol] 11.5 mmol/L 6.0-15.0 [facility] Serum or plasma calcium mitch urement (mass/volume)Ordered By: Jay Ceja on 09-05-2022 Calcium [Mass/Vol] 8.9 mg/dL 8.2-10.2 [facility] Serum or plasma chloride carlitos surement (moles/volume)Ordered By: Jay Ceja on 09-05-2022 Chloride [Moles/Vol] 105 mmol/L 95-114 [facility] Serum or plasma glucose mitch urement (mass/volume)Ordered By: Jay Ceja on 09-05-2022 Glucose [Mass/Vol] 103 mg/dL 70-100 [facility] Comment on above: ADA recommended refe rence rangeRandom Glucose Reference Range is dependent on time and content of last meal. Glucose of more than 200 mg/dL in a nonstressed, ambulatory subject supports the diagnosis of Diabetes Mellitus. Serum or plasma potassium me asurement (moles/volume)Ordered By: Jay Ceja on 09-05-2022 Potassium [Moles/Vol] 4.0 mmol/L 3.5-5.1 [facility] Serum or plasma sodium measu rement (moles/volume)Ordered By: Jay Ceja on 09-05-2022 Sodium [Moles/Vol] 140 mmol/L 136-146 [facility] Serum or plasma total carbon dioxide measurement (moles/volume)Ordered By: Jay Ceja on 09-05-2022 CO2 [Moles/Vol] 27.5 mmol/L 22.0-30.0 [facility] Serum or plasma urea nitroge n measurement (mass/volume)Ordered By: Jay Ceja on 09-05-2022 Urea nitrogen [Mass/Vol] 29 mg/dL 9-23 [facility] WBC Auto (Bld) [#/Vol]Ordere d By: Jay Ceja on 09-05-2022 WBC (Bld) [#/Vol] 5.6 10*3/uL 3.8-11.6 [facility] Glucose mean value [Mass/vol ume] in Blood Estimated from glycated hemoglobinOrdered By: Jay Ceja on 09-02-2022 Average glucose Estimated from glycated hemoglobin (Bld) [Mass/Vol] 117 mg/dL [facility] Hemoglobin A1c percentageOrd ered By: Jay Ceja on 09-02-2022 HbA1c (Bld) [Mass fraction] 5.7 % 4.3-5.6 [facility] Comment on above: Increased risk for d iabetes: 5.7 - 6.4diabetes: >6.4glycemic control for adults with diabetes: <7.0 Laboratory - Chemistry and C hemistry - challengeOrdered By: Jay Ceja on 09-02-2022 Magnesium [Mass/Vol] 1.8 mg/dL 1.6-2.6 [facility] Natriuretic peptide B (Bld) [Mass/Vol] 307.0 pg/mL 5-100 [facility] TSH DL <= 0.005 mIU/L QnOrde red By: Jay Ceja on 09-02-2022 TSH Qn 3.39 m[IU]/L 0.45-5.33 [facility] Troponin I.cardiac [Mass/vol ume] in Serum or Plasma by High sensitivity methodOrdered By: Jay Ceja on 09-02-2022 Troponin I.cardiac High sensitivity method [Mass/Vol] 6 pg/mL 0-15 [facility] Albumin [Mass/volume] in Ser um or PlasmaOrdered By: Luis Lennon on 09-01-2022 Albumin [Mass/Vol] 3.7 g/dL 3.2-5.5 [facility] Automated erythrocytes count in urine sediment (number/area)Ordered By: Luis Lennon on 09-01-2022 RBC Auto (Urine sed) [#/Area] 3-4 [HPF] 0-4 [facility] Automated leukocytes count i n urine sediment (number/area)Ordered By: Luis Lennon on 09-01-2022 WBC Auto (Urine sed) [#/Area] 5-9 [HPF] 0-4 [facility] Basophils Auto (Bld) [#/Vol] Ordered By: Luis Lennon on 09-01-2022 Basophils (Bld) [#/Vol] 0.1 10*3/uL 0.0-0.2 [facility] Basophils/100 WBC Auto (Bld) Ordered By: Luis Lennon on 09-01-2022 Basophils/100 WBC (Bld) 0.8 % . [facility] Bilirubin Test strip Ql (U)O rdered By: Luis Lennon on 09-01-2022 Bilirubin Ql (U) Negative Negative [facility] Color Auto (U)Ordered By: Robert Lennon on 09-01-2022 Color (U) Dark yellow Yellow [facility] Creatinine and Glomerular fi ltration rate.predicted panel (S/P/Bld)Ordered By: Luis Lennon on 09-01-2022 Creatinine [Mass/Vol] 1.14 mg/dL 0.44-1.03 [facility] Eosinophils Auto (Bld) [#/Vo l]Ordered By: Luis Lennon on 09-01-2022 Eosinophils (Bld) [#/Vol] 0.3 10*3/uL 0.0-0.45 [facility] Eosinophils/100 WBC Auto (Bl d)Ordered By: Luis Lennon on 09-01-2022 Eosinophils/100 WBC (Bld) 4.1 % . [facility] Erythrocyte distribution wid th Auto (RBC) [Ratio]Ordered By: Luis Lennon on 09-01-2022 Erythrocyte distribution width (RBC) [Ratio] 14.3 % 11.9-15.3 [facility] Estimated glomerular filtrat ion rate (GFR) non- AmericanOrdered By: Luis Lennon on 09-01-2022 GFR/1.73 sq M.predicted among non-blacks MDRD (S/P/Bld) [Vol rate/Area] 46 mL/Min [facility] Globulin Calc (S) [Mass/Vol] Ordered By: Luis Lennon on 09-01-2022 Globulin (S) [Mass/Vol] 2.2 g/dL [facility] Hematocrit Auto (Bld) [Volum e fraction]Ordered By: Luis Lennon on 09-01-2022 Hematocrit (Bld) [Volume fraction] 43.4 % 34.0-46.4 [facility] Hemoglobin [Mass/volume] in BloodOrdered By: Luis Lennon on 09-01-2022 Hemoglobin (Bld) [Mass/Vol] 13.9 g/dL 11.8-15.4 [facility] Ketones Auto test strip (U) [Mass/Vol]Ordered By: Luis Lennon on 09-01-2022 Ketones (U) [Mass/Vol] Trace Negative [facility] Laboratory - Chemistry and C hemistry - challengeOrdered By: Luis Lennon on 09-01-2022 Natriuretic peptide B (Bld) [Mass/Vol] 445.0 pg/mL 5-100 [facility] Laboratory - UrinalysisOrder ed By: Luis Lennon on 09-01-2022 Hyaline casts LM Ql (Urine sed) 0-8 [LPF] 0-8 [facility] Leukocytes [#/volume] correc anne marie for nucleated erythrocytes in Blood by Automated counOrdered By: Luis Lennon on 09-01-2022 WBC corrected for nucl RBC Auto (Bld) [#/Vol] 8.1 10*3/uL 3.8-11.6 [facility] Lymphocytes Auto (Bld) [#/Vo l]Ordered By: Luis Lennon on 09-01-2022 Lymphocytes (Bld) [#/Vol] 1.1 10*3/uL 1.00-4.8 [facility] Lymphocytes/100 WBC Auto (Bl d)Ordered By: Luis Lennon on 09-01-2022 Lymphocytes/100 WBC (Bld) 13.9 % . [facility] MCH Auto (RBC) [Entitic mass ]Ordered By: Luis Lennon on 09-01-2022 MCH (RBC) [Entitic mass] 29.3 pg 24.7-34.3 [facility] MCHC Auto (RBC) [Mass/Vol]Or dered By: uLis Lennon on 09-01-2022 MCHC (RBC) [Mass/Vol] 32.0 g/dL 32.0-35.0 [facility] MCV Auto (RBC) [Entitic vol] Ordered By: Luis Lennon on 09-01-2022 MCV (RBC) [Entitic vol] 91.4 fL 80-100 [facility] Monocyte distribution width [Entitic volume] in Blood by AutomatedOrdered By: Luis Lennon on 09-01-2022 Monocyte distribution width Auto (Bld) [Entitic vol] 16.84 % 0.00-20.00 [facility] Monocytes Auto (Bld) [#/Vol] Ordered By: Luis Lennon on 09-01-2022 Monocytes (Bld) [#/Vol] 0.6 10*3/uL 0.0-0.8 [facility] Monocytes/100 WBC Auto (Bld) Ordered By: Luis Lennon on 09-01-2022 Monocytes/100 WBC (Bld) 7.5 % . [facility] Neutrophils Auto (Bld) [#/Vo l]Ordered By: Luis Lennon on 09-01-2022 Neutrophils (Bld) [#/Vol] 5.9 10*3/uL 1.8-7.7 [facility] Neutrophils/100 WBC Auto (Bl d)Ordered By: Luis Lennon on 09-01-2022 Neutrophils/100 WBC (Bld) 73.7 % . [facility] Nitrite Test strip Ql (U)Ord ered By: Luis Lennon on 09-01-2022 Nitrite Ql (U) Negative Negative [facility] No Panel InformationOrdered By: Luis Lennon on 09-01-2022 Estimated GFR () 56 mL/Min [facility] Comment on above: GFR estimated refere nce range: According to KDOQI guidelines, <60 ml/min/1.73m2 is sufficient to diagnose a patient with chronic kidney disease. Pharmacy Creatinine Clearance (Chem 35.69 [facility] Nucleated erythrocytes [Pres ence] in Blood by Automated countOrdered By: Luis Lennon on 09-01-2022 Nucleated RBC Auto Ql (Bld) 0.1 /100{WBC} 0-0.5 [facility] Platelet mean volume Auto (B ld) [Entitic vol]Ordered By: Luis Lennon on 09-01-2022 Platelet mean volume (Bld) [Entitic vol] 9.1 fL 6.3-10.7 [facility] Platelets Auto (Bld) [#/Vol] Ordered By: Luis Lennon on 09-01-2022 Platelets (Bld) [#/Vol] 208 10*3/uL 150-450 [facility] Protein Auto test strip (U) [Mass/Vol]Ordered By: Luis Lennon on 09-01-2022 Protein (U) [Mass/Vol] 30 mg/dL Negative Fi [facility] Protein [Mass/volume] in Ser um or PlasmaOrdered By: Luis Lennon on 09-01-2022 Protein [Mass/Vol] 5.9 g/dL 6.1-7.9 [facility] RBC Auto (Bld) [#/Vol]Ordere d By: Luis Lennon on 09-01-2022 RBC (Bld) [#/Vol] 4.74 10*6/uL 3.60-5.00 [facility] Serum or plasma alanine mahmood otransferase measurement without P-5'-P (enzymatic activiOrdered By: Luis Lennon on 09-01-2022 ALT No additional P-5'-P [Catalytic activity/Vol] 33 U/L 10-60 [facility] Serum or plasma albumin/glob ulin mass ratioOrdered By: Luis Lennon on 09-01-2022 Albumin/Globulin [Mass ratio] 1.7 {ratio} [facility] Serum or plasma alkaline mia sphatase measurement (enzymatic activity/volume)Ordered By: Luis Lennon on 09-01-2022 ALP [Catalytic activity/Vol] 70 U/L 32-92 [facility] Serum or plasma anion gap de terminationOrdered By: Luis Lennon on 09-01-2022 Anion gap [Moles/Vol] 9.3 mmol/L 6.0-15.0 [facility] Serum or plasma aspartate am inotransferase measurement (enzymatic activity/volume)Ordered By: Luis Lennon on 09-01-2022 AST [Catalytic activity/Vol] 33 U/L 10-42 [facility] Serum or plasma calcium mitch urement (mass/volume)Ordered By: Luis Lennon on 09-01-2022 Calcium [Mass/Vol] 9.0 mg/dL 8.2-10.2 [facility] Serum or plasma chloride carlitos surement (moles/volume)Ordered By: Luis Lennon on 09-01-2022 Chloride [Moles/Vol] 109 mmol/L 95-114 [facility] Serum or plasma glucose mitch urement (mass/volume)Ordered By: Luis Lennon on 09-01-2022 Glucose [Mass/Vol] 95 mg/dL 70-100 [facility] Comment on above: ADA recommended refe rence rangeRandom Glucose Reference Range is dependent on time and content of last meal. Glucose of more than 200 mg/dL in a nonstressed, ambulatory subject supports the diagnosis of Diabetes Mellitus. Serum or plasma potassium me asurement (moles/volume)Ordered By: Luis Lennon on 09-01-2022 Potassium [Moles/Vol] 4.2 mmol/L 3.5-5.1 [facility] Serum or plasma sodium measu rement (moles/volume)Ordered By: Luis Lennon on 09-01-2022 Sodium [Moles/Vol] 138 mmol/L 136-146 [facility] Serum or plasma total biliru bin measurement (mass/volume)Ordered By: Luis Lennon on 09-01-2022 Bilirubin [Mass/Vol] 1.3 mg/dL 0.3-1.2 [facility] Comment on above: Samples from patient s who have taken Naproxen have shown spurious elevation in Total Bilirubin levels. A metabolite of Naproxen, O-desmethylnaproxen, has been shown to interfere with the Dc-Day method for measuring Total Bilirubin. Serum or plasma total carbon dioxide measurement (moles/volume)Ordered By: Luis Lennon on 09-01-2022 CO2 [Moles/Vol] 23.9 mmol/L 22.0-30.0 [facility] Serum or plasma urea nitroge n measurement (mass/volume)Ordered By: Luis Lennon on 09-01-2022 Urea nitrogen [Mass/Vol] 23 mg/dL 9-23 [facility] Specific gravity Auto test s trip (U) [Rel density]Ordered By: Luis Lennon on 09-01-2022 Specific gravity (U) [Rel density] 1.022 1.001-1.03 0 [facility] Squamous epithelial cells de tection in urine sediment by light microscopyOrdered By: Luis Lennon on 09-01-2022 Epithelial cells.squamous LM Ql (Urine sed) 5-9 [HPF] 0-2 [facility] Troponin I.cardiac [Mass/vol ume] in Serum or Plasma by High sensitivity methodOrdered By: Luis Lennon on 09-01-2022 Troponin I.cardiac High sensitivity method [Mass/Vol] 7 pg/mL 0-15 [facility] Urine bacteria detection by automated methodOrdered By: Luis Lennon on 09-01-2022 Bacteria Auto Ql (U) None seen None Seen [facility] Urine clarity by refractomet ry automatedOrdered By: Luis Lennon on 09-01-2022 Clarity Refractometry automated (U) Clear Clear [facility] Urine culture routineOrdered By: Luis Lennon on 09-01-2022 Bacteria identified Cx Nom (U) 2 Days [facility] Bacteria identified Cx Nom (U) 2 Days [facility] Urine glucose measurement by automated test strip (mass/volume)Ordered By: Luis Lennon on 09-01-2022 Glucose Auto test strip (U) [Mass/Vol] Normal mg/dL Normal [facility] Urine hemoglobin detection b y automated test stripOrdered By: Luis Lennon on 09-01-2022 Hemoglobin Auto test strip Ql (U) Negative Negative [facility] Urine leukocyte esterase det ection by automated test stripOrdered By: Luis Lennon on 09-01-2022 Leukocyte esterase Auto test strip Ql (U) 2+ Negative [facility] Urobilinogen Auto test strip (U) [Mass/Vol]Ordered By: Luis Lennon on 09-01-2022 Urobilinogen (U) [Mass/Vol] Normal mg/dL Normal [facility] WBC Auto (Bld) [#/Vol]Ordere d By: Luis Lennon on 09-01-2022 WBC (Bld) [#/Vol] 8.1 10*3/uL 3.8-11.6 [facility] pH Auto test strip (U)Ordere d By: Luis Lennon on 09-01-2022 pH (U) 5.5 [pH] 5.0-9.0 [facility] Office Visit (Cardiology)on 06-26-2022 Follow-up visit Diagnoses/Problems [...] a smoker Tobacco Use Screening; Status:Complete; Done: [id number] Patient Instructions Please bring all medicines, vitamins, [...] Signs Recorded: [id number] 02:26PM Heart Rate71, Apical [id number], LUE, Sitting [id number], LUE, Sitting Height4 ft 11 in [id number] lb BMI Hmqcfposus32.92 kg/m2 BSA Calculated1.69 Tobacco Useb) No Falls Screening (Age 18+)a) No falls within the last year EKG COMPLETED IN OFFICE Physical Exam Constitutional: alert and in no acute distress. Neck: neck is supple, symmetric, trachea midline, no masses and no thyromegaly . Pulmonary: no increased work of breathing or signs of respiratory distress (more content not included)... Normal [employer] Tobacco Screening.on 022 Fall risk assessment a) No falls within the last year [facility] Heart-Sandu evelin 250 DO Work Phone: Tobacco use status [facility] b) No [employer] [facility] [employer] 250 DO Work Phone: NM GASTRIC [...] FARRAH LOGAN Date: 2022-05-12 12:48 Normal [facility] Covid-19 PCR (CVDTB)on SARS-CoV-2 (COVID-19) RNA GUILLERMO+probe Ql (Unsp spec) Not detected Normal NOT DETECTED [facility] Comment on above: Result Comment: This test is not yet approved or cleared by the [place] FDA. When there are no FDA-approved or cleared tests available, and other criteria are met, FDA can make tests available under an emergency access mechanism called an Emergency Use Authorization (EUA). The EUA for this test is supported by the [employer] of Health and Human Service's (HHS's) declaration [...] SARS-CoV-2. Performed By: #### C VDTB #### [facility] Laboratory [address] [address] [address] 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 She reports she underwent esophageal [...] tired. Cardiovascular: (more content not included)... Normal [employer] Tobacco Screening.on 022 Fall risk assessment a) No falls within the last year [employer] [employer] 250 DO Work Phone: Tobacco use status CPHS b) No [employer] [facility] [employer] 250 DO Work Phone: Albumin [Mass/volume] in Ser um or PlasmaOrdered By: John Mims on 03-09-2022 Albumin [Mass/Vol] 3.7 g/dL 3.2-5.5 [facility] Basophils Auto (Bld) [#/Vol] Ordered By: John Mims on 03-09-2022 Basophils (Bld) [#/Vol] 0.0 10*3/uL 0.0-0.2 [facility] Basophils/100 WBC Auto (Bld) Ordered By: John Mims on 03-09-2022 Basophils/100 WBC (Bld) 0.7 % . [facility] Blood hemoglobin measurement (mass/volume)Ordered By: John Mims on 03-09-2022 Hemoglobin (Bld) [Mass/Vol] 13.7 g/dL 11.8-15.4 [facility] Blood leukocytes automated c ount (number/volume)Ordered By: John Mims on 03-09-2022 WBC (Bld) [#/Vol] 6.2 10*3/uL 4.5-11.0 [facility] Creatinine and Glomerular fi ltration rate.predicted panel (S/P/Bld)Ordered By: John Mims on 03-09-2022 Creatinine [Mass/Vol] 1.10 mg/dL 0.44-1.03 [facility] Eosinophils Auto (Bld) [#/Vo l]Ordered By: John Mims on 03-09-2022 Eosinophils (Bld) [#/Vol] 0.3 10*3/uL 0.0-0.45 [facility] Eosinophils/100 WBC Auto (Bl d)Ordered By: John Mims on 03-09-2022 Eosinophils/100 WBC (Bld) 4.2 % . [facility] Erythrocyte distribution wid th Auto (RBC) [Ratio]Ordered By: John Mims on 03-09-2022 Erythrocyte distribution width (RBC) [Ratio] 13.3 % 11.9-15.3 [facility] Estimated glomerular filtrat ion rate (GFR) non- AmericanOrdered By: John Mims on 03-09-2022 GFR/1.73 sq M.predicted among non-blacks MDRD (S/P/Bld) [Vol rate/Area] 48 mL/Min [facility] Globulin Calc (S) [Mass/Vol] Ordered By: John Mims on 03-09-2022 Globulin (S) [Mass/Vol] 2.6 g/dL [facility] Hematocrit Auto (Bld) [Volum e fraction]Ordered By: John Mims on 03-09-2022 Hematocrit (Bld) [Volume fraction] 40.9 % 34.0-46.4 [facility] Laboratory - CoagulationOrde red By: John Mims on 03-09-2022 PT Coag (PPP) [Time] 17.6 s 9.0-12.9 [facility] Laboratory - Hematology and Cell countsOrdered By: John Mims on 03-09-2022 Nucleated RBC/100 WBC (Bld) [Ratio] 0.0 % 0-0.5 [facility] Lymphocytes Auto (Bld) [#/Vo l]Ordered By: John Mims on 03-09-2022 Lymphocytes (Bld) [#/Vol] 1.1 10*3/uL 1.00-4.8 [facility] Lymphocytes/100 WBC Auto (Bl d)Ordered By: John Mims on 03-09-2022 Lymphocytes/100 WBC (Bld) 17.2 % . [facility] MCH Auto (RBC) [Entitic mass ]Ordered By: John Mims on 03-09-2022 MCH (RBC) [Entitic mass] 30.8 pg 24.7-34.3 [facility] MCHC Auto (RBC) [Mass/Vol]Or dered By: John Mims on 03-09-2022 MCHC (RBC) [Mass/Vol] 33.4 g/dL 32.0-35.0 [facility] MCV Auto (RBC) [Entitic vol] Ordered By: John Mims on 03-09-2022 MCV (RBC) [Entitic vol] 92.2 fL 80-100 [facility] Monocyte %Ordered By: Letty Mims on 03-09-2022 Monocyte % 24 umol/L 11-35 [facility] Monocytes Auto (Bld) [#/Vol] Ordered By: John Mims on 03-09-2022 Monocytes (Bld) [#/Vol] 0.5 10*3/uL 0.0-0.8 [facility] Monocytes/100 WBC Auto (Bld) Ordered By: John Mims on 03-09-2022 Monocytes/100 WBC (Bld) 7.4 % . [facility] Neutrophils Auto (Bld) [#/Vo l]Ordered By: John Mims on 03-09-2022 Neutrophils (Bld) [#/Vol] 4.4 10*3/uL 1.8-7.7 [facility] Neutrophils/100 WBC Auto (Bl d)Ordered By: John Mims on 03-09-2022 Neutrophils/100 WBC (Bld) 70.5 % . [facility] No Panel InformationOrdered By: John Mims on 03-09-2022 Estimated GFR () 58 mL/Min [facility] Comment on above: GFR estimated refere nce range: According to KDOQI guidelines, <60 ml/min/1.73m2 is sufficient to diagnose a patient with chronic kidney disease. Pharmacy Creatinine Clearance (Chem N/A [facility] Platelet mean volume Auto (B ld) [Entitic vol]Ordered By: John Mims on 03-09-2022 Platelet mean volume (Bld) [Entitic vol] 8.5 fL 6.3-10.7 [facility] Platelet poor plasma interna tional normalized ratio (INR) by coagulation assay (relatOrdered By: John Mims on 03-09-2022 INR Coag (PPP) [Relative time] 1.6 {INR} [facility] Comment on above: INR Therapeutic Rang e [...] 03-09-2022 Platelets (Bld) [#/Vol] 213 10*3/uL 150-450 [facility] Protein [Mass/volume] in Ser um or PlasmaOrdered By: John Mims on 03-09-2022 Protein [Mass/Vol] 6.3 g/dL 6.1-7.9 [facility] RBC Auto (Bld) [#/Vol]Ordere d By: John Mims on 03-09-2022 RBC (Bld) [#/Vol] 4.44 10*6/uL 3.60-5.00 [facility] Serum or plasma alanine mahmood otransferase measurement without P-5'-P (enzymatic activiOrdered By: John Mims on 03-09-2022 ALT No additional P-5'-P [Catalytic activity/Vol] 23 U/L 10-60 [facility] Serum or plasma albumin/glob ulin mass ratioOrdered By: John Mims on 03-09-2022 Albumin/Globulin [Mass ratio] 1.4 {ratio} [facility] Serum or plasma alkaline mia sphatase measurement (enzymatic activity/volume)Ordered By: John Mims on 03-09-2022 ALP [Catalytic activity/Vol] 98 U/L 32-92 [facility] Serum or plasma aspartate am inotransferase measurement (enzymatic activity/volume)Ordered By: John Mims on 03-09-2022 AST [Catalytic activity/Vol] 27 U/L 10-42 [facility] Serum or plasma calcium mitch urement (mass/volume)Ordered By: John Mims on 03-09-2022 Calcium [Mass/Vol] 9.3 mg/dL 8.2-10.2 [facility] Serum or plasma chloride carlitos surement (moles/volume)Ordered By: John Mims on 03-09-2022 Chloride [Moles/Vol] 106 mmol/L 95-114 [facility] Serum or plasma glucose mitch urement (mass/volume)Ordered By: John Mims on 03-09-2022 Glucose [Mass/Vol] 88 mg/dL 70-100 [facility] Comment on above: ADA recommended refe rence range Random Glucose Reference Range is dependent on time and content of last meal. Glucose of more than 200 mg/dL in a nonstressed, ambulatory subject supports the diagnosis of Diabetes Mellitus. Serum or plasma potassium me asurement (moles/volume)Ordered By: John Mims on 03-09-2022 Potassium [Moles/Vol] 4.6 mmol/L 3.5-5.1 [facility] Serum or plasma sodium measu rement (moles/volume)Ordered By: John Mims on 03-09-2022 Sodium [Moles/Vol] 139 mmol/L 136-146 [facility] Serum or plasma total biliru bin measurement (mass/volume)Ordered By: John Mims on 03-09-2022 Bilirubin [Mass/Vol] 0.9 mg/dL 0.3-1.2 [facility] Serum or plasma total carbon dioxide measurement (moles/volume)Ordered By: John Mims on 03-09-2022 CO2 [Moles/Vol] 23.9 mmol/L 22.0-30.0 [facility] Serum or plasma urea nitroge n measurement (mass/volume)Ordered By: John Mims on 03-09-2022 Urea nitrogen [Mass/Vol] 30 mg/dL 9-23 [facility] TSH DL <= 0.005 mIU/L QnOrde red By: John Serranoack on 03-09-2022 TSH Qn 1.70 m[IU]/L 0.45-5.33 [facility] Thyroxine (T4) free [Mass/vo lume] in Serum or PlasmaOrdered By: John Mims on 03-09-2022 Free T4 [Mass/Vol] 1.37 ng/dL 0.61-1.12 [facility] US SINGLE QUAD RT UPPERon US [...] HARDY LIRA Date: 2022-01-25 16:24 Normal [facility] BNPon 01-11-2022 Natriuretic peptide B (Bld) [Mass/Vol] 520.0 pg/mL Normal <=1,800.0 [facility] Comment on above: Performed By: #### B MP, TSH, BNP #### [facility] Laboratory [address] [place], [place] [address] Dr. Lori Sutton CBC AUTO DIFFon 01-11-2022 BASO # 0.0 103/ul Normal 0.0-0.1 [facility] Comment on above: Performed By: #### C BC ####[facility] [address] [place], [place] [address]MlDr. Lori Sutton Basophils/100 WBC (Bld) 0.5 % Normal 0.2-2.0 [facility] Comment on above: Performed By: #### C BC ####[facility] [address] [address]Dr. Lori Sutton EO # 0.3 103/ul Normal 0.0-0.7 [facility] Comment on above: Performed By: #### C BC ####[facility] [address] [place], [place] [address]Dr. Lori Sutton Eosinophils/100 WBC (Bld) 3.9 % Normal 0.9-7.0 [facility] Comment on above: Performed By: #### C BC ####[facility] [address] [place], [place] [address]Dr. Lori Sutton Erythrocyte distribution width (RBC) [Ratio] 14.4 % Normal 11.0-15.0 [facility] Comment on above: Performed By: #### C BC ####[facility] [address] [place], [place] [address]Dr. Lori Sutton Hematocrit (Bld) [Volume fraction] 42.0 % Normal 36.0-48.0 [facility] Comment on above: Performed By: #### C BC ####[facility] [address] [place], [place] [address]Dr. Lori Sutton Hemoglobin (Bld) [Mass/Vol] 13.4 g/dL Normal 12.0-16.0 [facility] Comment on above: Performed By: #### C BC ####[facility] [address] [place], [place] [address]Dr. Lori Sutton IG # 0.04 10e3/ul Critically high 0.00-0.03 [facility] Comment on above: Performed By: #### C BC ####[facility] [address] [place], [place] [address]Dr. Lori Sutton IG % 0.5 % Normal 0.0-0.5 [facility] Comment on above: Performed By: #### C BC ####[facility] [address] [place], [place] [address]Dr. Lori Sutton LYMPH # 1.7 103/ul Normal 1.2-3.8 [facility] Comment on above: Performed By: #### C BC ####[facility] [address] [address]Dr. Estephaniaurbano Sutton Lymphocytes/100 WBC (Bld) 21.3 % Normal 20.5-60.0 [facility] Comment on above: Performed By: #### C BC ####[facility] [address] [address]Dr. Lori Sutton MANUAL DIFF REQ NO Normal [facility] Comment on above: Performed By: #### C BC ####[facility] [address] [address]Dr. Lori Sutton MCH (RBC) [Entitic mass] 30.6 pg Normal 26.7-34.0 [facility] Comment on above: Performed By: #### C BC ####[facility] [address] [place], [place] [address]Dr. Lori Herman MCHC (RBC) [Mass/Vol] 31.9 g/dL Normal 29.9-35.2 [facility] Comment on above: Performed By: #### C BC ####[facility] [address] [place], [place] [address]Dr. Lori Sutton MCV (RBC) [Entitic vol] 95.9 fL Normal 81.0-99.0 [facility] Comment on above: Performed By: #### C BC ####[facility] [address] [address]Dr. Lori Sutton MONO # 0.7 103/ul Normal 0.3-0.8 [facility] Comment on above: Performed By: #### C BC ####[facility] [address] [place], [place] [address]Dr. Lori Sutton Monocytes/100 WBC (Bld) 8.5 % Normal 1.7-12.0 [facility] Comment on above: Performed By: #### C BC ####[facility] [address] [place], [place] [address]Dr. Lori Sutton NEUT # 5.2 103/ul Normal 1.4-6.5 [facility] Comment on above: Performed By: #### C BC ####[facility] [address] [address]DrMelita Sutton Neutrophils/100 WBC (Bld) 65.3 % Normal 43.0-75.0 [facility] Comment on above: Performed By: #### C BC ####[facility] [address] [address]DrMelita Sutton Platelet mean volume (Bld) [Entitic vol] 10.3 fL Normal 9.5-13.5 [facility] Comment on above: Performed By: #### C BC ####[facility] [address] [address]DrMelita Sutton PLT 230 103/ul Normal 150-450 [facility] Comment on above: Performed By: #### C BC ####[facility] [address] [address]DrMelita Sutton RBC 4.38 106/ul Normal 4.20-5.40 [facility] Comment on above: Performed By: #### C BC ####[facility] [address] [place], [place] [address]DrMelita Sutton WBC 8.0 103/ul Normal 4.0-11.0 [facility] Comment on above: Performed By: #### C BC ####[facility] [address] [address]Dr. Lori Sutton PROF CHEM 8 (BAS METB)on Anion gap [Moles/Vol] 14.3 mmol/L Normal [facility] Comment on above: Performed By: #### B MP, TSH, BNP #### [facility] Laboratory [address] [address] [address] Lori Sutton Calcium [Mass/Vol] 8.8 mg/dL Normal 8.5-10.1 [facility] Comment on above: Performed By: #### B MP, TSH, BNP #### [facility] [address] [address] [address] Lori Sutton Chloride [Moles/Vol] 103 mmol/L Normal 98-107 [facility] Comment on above: Performed By: #### B MP, TSH, BNP #### [facility] Laboratory [address] [place] [address] Dr. Lori Sutton CO2 [Moles/Vol] 27.5 mmol/L Normal 21.0-32.0 [facility] Comment on above: Performed By: #### B MP, TSH, BNP #### [facility] Laboratory [address] [place] [address] Dr. Lori Sutton Creatinine [Mass/Vol] 1.65 mg/dL Critically high 0.55-1.02 [facility] Comment on above: Performed By: #### B MP, TSH, BNP #### [facility] [address] [place] [address] Dr. Lori Sutton EGFR-AF ANGUILLAN 36 mL/min/1.73m2 Critically low >=60 [facility] Comment on above: Performed By: #### B MP, TSH, BNP #### [facility] [address] [place] [address] Dr. Lori Sutton EGFR-NON AF ANGUILLAN 30 mL/min/1.73m2 Critically low >=60 [facility] Comment on above: Performed By: #### B MP, TSH, BNP #### [facility] [address] [place] [address] Dr. Lori Sutton Glucose [Mass/Vol] 88 mg/dL Normal 74-106 [facility] Comment on above: Performed By: #### B MP, TSH, BNP #### [facility] [address] [place] [address] Dr. Lori Sutton Potassium [Moles/Vol] 4.8 mmol/L Normal 3.5-5.1 [facility] Comment on above: Performed By: #### B MP, TSH, BNP #### [facility] [address] [place] [address] Dr. Lori Sutton Sodium [Moles/Vol] 140 mmol/L Normal 136-145 [facility] Comment on above: Performed By: #### B MP, TSH, BNP #### [facility] [address] [address] [address] Lori Sutton Urea nitrogen [Mass/Vol] 46.0 mg/dL Critically high 7.0-18.0 [facility] Comment on above: Performed By: #### B MP, TSH, BNP #### [facility] [address] [address] [address] Lori Sutton Urea nitrogen/Creatinine [Mass ratio] 27.9 mg/mg Normal [facility] Comment on above: Performed By: #### B MP, TSH, BNP #### [facility] [address] [address] [address] Lori Sutton TSHon 01-11-2022 TSH 2.012 uIU/mL Normal 0.358-3.74 0 [facility] Comment on above: Performed By: #### B MP, TSH, BNP #### [facility] [address] [address] [address] Lori Sutton TSH RANGE SEE BELOW Normal [facility] Comment on above: Result Comment: <0.3 4 UIU/ml HYPERTHYROID 0.34-5.60 UIU/ml EUTHYROID >5.60 UIU/ml HYPOTHYROID Performed By: #### B MP, TSH, BNP #### [facility] [address] [address] [address] Lori Sutton XR CHEST 2 Von [...] MACARENA MEHTA Date: 2022-01-11 15:14 Normal [facility] COVID-19 Positive/NegativeOr dered By: John Mims on 12-30-2021 SARS-CoV-2 (COVID-19) N gene GUILLERMO+probe Ql (Resp) Negative Negative [facility] Comment on above: Testing for SARS-CoV -2 by RT-PCR This test was developed and its performance characteristics determined by [employer] ([employer]) and validated at the [facility]. This test has not been FDA cleared [...] a) No falls within the last year [facility] [employer] DO Work Phone: Tobacco use status CPHS b) No [facility] [employer] DO Work Phone: Tobacco Screening. Yes [facility] [employer] 250 DO Work Phone: RAD - CT Reporton 10-10-2021 RAD - CT Report [id number]:127 [facility] Tobacco Screening.on 021 Fall risk assessment b) One or more fall s in the last year [facility] [employer] DO Work Phone: Tobacco use status CPHS b) No [facility] Work Phone: RAD - CT Reporton 07-24-2021 RAD - CT Report [id number]#[id number]:127 [facility] Consent for Procedure/Surger yon 07-22-2021 Consent for Procedure/Surgery [id number]#[id number]:[address] [facility] Ambulatory Clinical Summaryo n 07-21-2021 Ambulatory Clinical Summary {[id number]}CD: [id number] Normal [facility] Patient Educationon 07-21-20 21 Patient Education Urology [...] these instructions at home: Medicines ? Take vapq-xea-hiazqnb and prescription medicines only as told by [...] 01/22/2009 Document Revised: 12/23/2019 Document Reviewed: 12/23/2019 [employer] Patient Education ? [address] [employer] [facility] Urology Office/Clinic Noteon 07-21-2021 Urology Office/Clinic [...] 07/01/2021. Pt. was seen in consult at [facility]. CT done 06/27/2021 shows left [...] 01/19/[address] [address]- Additional Instructions: KUB Patient Education Kidney Stones, [place]-ff-Jqto I, Leonor Rucker, personally scribed for Dr. [...] Tobacco Use:. Never Smokeless Tobacco Use:., 07/21/2021 [facility] Comment on above: Result Comment: Elec tronically Signed By: Byron ALFONSO MD\.br\Date and Time Signed: 07/21/21 15:17 EST\.br\Electronically Co-Signed By: Leonor Rucker\.br\Date and Time Co-Signed: 07/21/21 15:12 EST Falls Risk Screeningon 07-06 Fall risk assessment a) No falls within the last year [facility] 250 DO Work Phone: Pathology Noteon 07-06-2021 Pathology Note [id number]#1.00CD:[address] [facility] Operative Reporton Operative Report [id number]#1.00CD:[address] [facility] RAD - MISCon 07-04-2021 RAD - MISC [id number]#1.00CD:127 [facility] Insurance Correspondence Off iceon 07-01-2021 Insurance Correspondence Office [id number]#1.00CD:[address] [facility] Consultation Noteon 06-29-20 21 Consultation Note [id number]#1.00CD:[address] [facility] No Panel Informationon 06-24 [facility] [employer] [place] Work Phone: 20.44\S\20.44 Normal [address] [address] [place] Work Phone: Comment on above: PERFORMED BY:[facility] [place] [place], [place] [id number] MEDICAL DIRECTORVITOR ZARATE M.D. 9.0\S\9.0 Normal 8.2-10.2 [address] [place] [address] [place] Work Phone: 24.1\S\24.1 Normal 22.0-30.0 [address] [place] [address] [place] Work Phone: 103\S\103 Normal 95-114 [facility] [place] [address] [place] Work Phone: 4.4\S\4.4 Normal 3.5-5.1 [facility] [place] [address] [place] Work Phone: 138\S\138 Normal 136-146 [facility] [place] [address] [place] Work Phone: 31\S\31 Normal [facility] [place] [address] [place] Work Phone: Comment on above: GFR estimated refere nce range: According to KDOQI guidelines, <60 ml/min/1.73m2 is sufficient to diagnose a patient with chronic kidney disease. 26\S\26 Normal [facility] [place] [address] [place] Work Phone: 1.88\S\1.88 above high threshold 0.44-1.03 [facility] [place] [address] [place] Work Phone: 34\S\34 above high threshold 9-23 [facility] [place] [address] [place] Work Phone: 130\S\130 above high threshold 70-100 [facility] [place] [address] [place] Work Phone: Comment on above: Random Glucose Refer ence Range is dependent on time and content of last meal. Glucose of more than 200 mg/dL in a nonstressed, ambulatory subject supports the diagnosis of Diabetes Mellitus. ADA recommended reference range No Panel Informationon 06-23 3+ above high threshold Negative [facility] [place] [address] [place] Work Phone: Negative Normal Negative [facility] [place] [address] [place] Work Phone: Normal Normal Normal [facility] [place] [address] [place] Work Phone: 30\S\30 above high threshold Negative [facility] [place] [address] [place] Work Phone: None Seen Normal 0-8 -[facility] [address] [place] Work Phone: Comment on above: PERFORMED BY:[place] [address] [address] JAMESLUANNEC[place]UMBIA [place], [place] [phone] MEDICAL DIRECTORVITOR ZARATE M.D. 4+ above high threshold Negative -[facility] [address] [place] Work Phone: 0-1 Normal 0-2 -Group [facility] [address] [place] Work Phone: Innumerable above high threshold 0-4 -[facility] [address] [place] Work Phone: Positive above high threshold Negative -[facility] [address] [place] Work Phone: 5.5\S\5.5 Normal 5.0-9.0 -[facility] [facility] [address] [place] Work Phone: 1.015\S\1.015 Normal 1.001-1.03 0 -[facility] [address] [address] [place] Work Phone: Turbid Critically abnormal Clear -[facility] [address] [address] [place] Work Phone: Yellow Normal Yellow [facility] [facility] [address] [place] Work Phone: [facility] [facility] [address] [place] Work Phone: 21\S\21 Normal [facility] [facility] [address] [place] Work Phone: 21.8\S\21.8 below low threshold 23.0-27.0 -[facility] [facility] [address] [place] Work Phone: 7.2\S\7.2 Normal 6.6-9.7 [facility] [facility] [address] [place] Work Phone: 95.4\S\95.4 Normal 95.0-100.0 [facility] [facility] [address] [place] Work Phone: -2.7\S\-2.7 Normal -3.0-3.0 -[facility] [facility] [address] [place] Work Phone: 20.8\S\20.8 below low threshold 23.0-29.0 -[facility] [facility] [address] [place] Work Phone: 76.9\S\76.9 below low threshold 80.0-100.0 -[facility] [facility] [address] [place] Work Phone: 32.1\S\32.1 below low threshold 35.0-45.0 -[facility] [facility] [address] [place] Work Phone: 7.43\S\7.43 Normal 7.35-7.45 -[facility] [facility] [address] [place] Work Phone: Normal [facility] [facility] [address] [place] Work Phone: Comment on above: Critical Value gustafson d on: 06/23/2021 at 13:35PERFORMED BY:[place] [id number] [address] [place] [id number] MEDICAL SUZETTE ZARATE M.D. Right Radial Normal [facility] [address] [place] Work Phone: 24.4\S\24.4 Normal 22.0-30.0 [facility] [address] [place] Work Phone: Comment on above: PERFORMED BY:[place] [id number] [address] [place] [id number] MEDICAL DIRECTORVITOR ZARATE M.D. 104\S\104 Normal 95-114 [facility] [address] [place] Work Phone: 4.4\S\4.4 Normal 3.5-5.1 [facility] [facility] [address] [place] Work Phone: 141\S\141 Normal 136-146 [facility] [address] [address] [place] Work Phone: [facility] [facility] [address] [place] Work Phone: Radiologyon 06-23-2021 Portable XR Chest Views Normal [facility] [address] [place] Work Phone: BASIC METABOLIC PANELon 07-20 Calcium [Mass/Vol] 8.4 mg/dL Low 8.6-10.3 [facility] Comment on above: Order Comment: No: D o not add to previous draw Pt care Performed By: #### 0 0071 #### [facility] [address] [place] [address], [facility] Chloride [Moles/Vol] 105 mmol/L Normal 98-107 [facility] Comment on above: Order Comment: No: D o not add to previous draw Pt care Performed By: #### 0 0071 #### [facility] [address] [place] [address], [place] CO2 [Moles/Vol] 23 mmol/L Normal 21-31 [facility] Comment on above: Order Comment: No: D o not add to previous draw Pt care Performed By: #### 0 0071 #### [facility] [address] [place] [address], [place] Creatinine [Mass/Vol] 1.14 mg/dL Normal 0.60-1.20 [facility] Comment on above: Order Comment: No: D o not add to previous draw Pt care Performed By: #### 0 0071 #### [facility] [address] [place] [address], [place] GFR/1.73 sq M predicted among blacks MDRD (S/P/Bld) [Vol rate/Area] 56 ml/min/1.73sq m Abnormal >60 [facility] Comment on above: Order Comment: No: D o not add to previous draw Pt care Result Comment: Calc ulation may not be valid for patients over 70 years Performed By: #### 0 0071 #### [facility] [address] [place] [address], [facility] GFR/1.73 sq M predicted among non-blacks MDRD (S/P/Bld) [Vol rate/Area] 46 ml/min/1.73sq m Abnormal >60 [facility] Comment on above: Order Comment: No: D o not add to previous draw Pt care Result Comment: Calc ulation may not be valid for patients over 70 years Performed By: #### 0 0071 #### [facility] [address] [place] [address], [place] Glucose [Mass/Vol] 151 mg/dL High 70-100 [facility] Comment on above: Order Comment: No: D o not add to previous draw Pt care Performed By: #### 0 0071 #### [facility] [address] [place] [address], [place] Potassium [Moles/Vol] 3.9 mmol/L Normal 3.5-5.1 [facility] Comment on above: Order Comment: No: D o not add to previous draw Pt care Performed By: #### 0 0071 #### [facility] [address] [place] [address], [place] Sodium [Moles/Vol] 139 mmol/L Normal 136-145 [facility] Comment on above: Order Comment: No: D o not add to previous draw Pt care Performed By: #### 0 0071 #### [facility] [address] [place] [address], [place] Urea nitrogen [Mass/Vol] 14 mg/dL Normal 7-25 [facility] Comment on above: Order Comment: No: D o not add to previous draw Pt care Performed By: #### 0 0071 #### [facility] [address] [place] [address], [place] CTA CHESTon 07-31-2020 CTA CHEST [facility] Department of Radiology [address] [place] [address] Patient Name: LESA GOLDEN : 1940 Sex: F Age: Race: White Pt. Location: [id number] Patient Status: D Ordered Date: 07/31/2020 10:25:00 [...] reports Electronically signed: Drew Rios. Transcribed by: [email or web address], User Resident: SANTO LAZO Electronically Signed by: DREW RIOS @ 08/02/2020 09:34 AM I personally read this/these film(s) with this resident Normal [facility] Comment on above: Order Comment: 12 ho urs post vitamin K administration/pre-procedure warfarin reversal No: Do not add to previous draw PROTHROMBIN TIMEon 0 INR Coag (PPP) [Relative time] 1.10 {INR} Normal 0.91-1.16 [facility] Comment on above: Order Comment: No: D o not add to previous draw Result Comment: [facility] P RECOMMENDED INR FOR WARFARIN THERAPY [...] CHEST 1995;108:231S-246S. Performed By: #### 0 0071, 23196 #### [facility] [address] PT Coag (PPP) [Time] 14.2 s Normal 12.3-14.8 [facility] Comment on above: Order Comment: No: D o not add to previous draw Result Comment: ALL RESULTS MUST BE INTERPRETED WITH RESPECT TO BLOOD DRAWING ARTIFACT OR DILUTION ERROR OF ANTICOAGULANT AT THE TIME OF SAMPLING. Performed By: #### 0 0071, 77924 #### [facility] [address] UFH HEPARIN ASSAYon 07-31-20 20 UNFRACTIONATED HEPARIN 0.32 IU/mL Normal 0.30-0.70 [facility] Comment on above: Result Comment: Aracelis roxaban and Apixaban will interfere with the anti Xa assay used to monitor UFH and LMWH. Performed By: #### 0 0071, [id number] #### [facility] [address] URINALYSIS REFLEXon 07-31-20 20 Appearance (U) CLOUDY Abnormal CLEAR [facility] Comment on above: Order Comment: No: D o not add to previous draw Performed By: #### 5 3629, 82188, 43401 #### [facility] [address] [place] [address], [place] Bilirubin [Mass/Vol] Negative Normal NEGATIVE [facility] Comment on above: Order Comment: No: D o not add to previous draw Performed By: #### 5 3629, 30606, 29871 #### [facility] [address] [place] [address], [place] BLOOD LARGE Abnormal NEGATIVE [facility] Comment on above: Order Comment: No: D o not add to previous draw Performed By: #### 5 3629, 06569, 35821 #### [facility] [address] [place] [address], [place] Color (U) SABINA Abnormal YELLOW [facility] Comment on above: Order Comment: No: D o not add to previous draw Performed By: #### 5 3628, 10757, 40293 #### [facility] [address] [place] [address], [place] EPIS MANY Abnormal FEW,OCC,NO NE SEEN [facility] Comment on above: Order Comment: No: D o not add to previous draw Performed By: #### 5 9, 95468, 94531 #### [facility] [address] [place] [address], [place] Glucose [Mass/Vol] Negative Normal NEGATIVE [facility] Comment on above: Order Comment: No: D o not add to previous draw Performed By: #### 5 9, 15801, 67876 #### [facility] [address] [place] [address], [place] KETONE Negative Normal NEGATIVE [facility] Comment on above: Order Comment: No: D o not add to previous draw Performed By: #### 5 9, 10568, 75808 #### [facility] [address] [place] [address], [place] LEUK GEOFFREY MODERATE Abnormal NEGATIVE [facility] Comment on above: Order Comment: No: D o not add to previous draw Performed By: #### 5 3628, 77507, 50293 #### [facility] [address] [place] [address], [facility] MUCUS THREADS FEW Abnormal NONE SEEN [facility] Comment on above: Order Comment: No: D o not add to previous draw Performed By: #### 5 3629, 99571, 19425 #### [facility] [address] [place] [address], [facility] Nitrite Ql (U) Positive Abnormal NEGATIVE [facility] Comment on above: Order Comment: No: D o not add to previous draw Performed By: #### 5 9, 18512, 26841 #### [facility] [address] [place] [address], [facility] pH (Bld) 5.0 Normal 5.0-8.0 [facility] Comment on above: Order Comment: No: D o not add to previous draw Performed By: #### 5 3628, 25677, 47632 #### [facility] [address] [place] [address], [facility] Protein (U) [Mass/Vol] 100 mg/dL Abnormal NEGATIVE [facility] Comment on above: Order Comment: No: D o not add to previous draw Performed By: #### 5 362, 87003, 83615 #### [facility] [address] [place] [address], [facility] RBC (U) [#/Vol] /uL Abnormal NONE SEEN [facility] Comment on above: Order Comment: No: D o not add to previous draw Performed By: #### 5 3629, 44473, 26348 #### [facility] [address] [place] [id number], [facility] SPEC GRAV 1.025 High 1.015-1.02 0 [facility] Comment on above: Order Comment: No: D o not add to previous draw Performed By: #### 5 362, 42722, 30902 #### [facility] [address] [place] [address], [facility] WBC UA >100 Abnormal NONE SEEN [facility] Comment on above: Order Comment: No: D o not add to previous draw Performed By: #### 5 3629, 55296, 13901 #### [facility] [address] [place] [address], [place] BASIC METABOLIC PANELon 12- Calcium [Mass/Vol] 8.1 mg/dL Low 8.6-10.3 [facility] Comment on above: Order Comment: No: D o not add to previous draw Performed By: #### 0 0071 #### [facility] [address] [place] [address], [facility] Chloride [Moles/Vol] 108 mmol/L High 98-107 [facility] Comment on above: Order Comment: No: D o not add to previous draw Performed By: #### 0 0071 #### [facility] [address] [place] [address], [facility] CO2 [Moles/Vol] 24 mmol/L Normal 21-31 [facility] Comment on above: Order Comment: No: D o not add to previous draw Performed By: #### 0 0071 #### [facility] [address] [place] [address], [place] Creatinine [Mass/Vol] 0.99 mg/dL Normal 0.60-1.20 [facility] Comment on above: Order Comment: No: D o not add to previous draw Performed By: #### 0 0071 #### [facility] [address] [place] [address], [place] GFR/1.73 sq M predicted among blacks MDRD (S/P/Bld) [Vol rate/Area] mL/min/{1.73_m2} Normal >60 [facility] Comment on above: Order Comment: No: D o not add to previous draw Result Comment: Calc ulation may not be valid for patients over 70 years Performed By: #### 0 0071 #### [facility] [address] [place] [address], [facility] GFR/1.73 sq M predicted among non-blacks MDRD (S/P/Bld) [Vol rate/Area] 54 ml/min/1.73sq m Abnormal >60 [facility] Comment on above: Order Comment: No: D o not add to previous draw Result Comment: Calc ulation may not be valid for patients over 70 years Performed By: #### 0 0071 #### [facility] [address] [place] [address], [facility] Glucose [Mass/Vol] 104 mg/dL High 70-100 [facility] Comment on above: Order Comment: No: D o not add to previous draw Performed By: #### 0 0071 #### [facility] [address] [place] [address], [facility] Potassium [Moles/Vol] 3.5 mmol/L Normal 3.5-5.1 [facility] Comment on above: Order Comment: No: D o not add to previous draw Performed By: #### 0 0071 #### [facility] [address] [place] [address], [facility] Sodium [Moles/Vol] 141 mmol/L Normal 136-145 [facility] Comment on above: Order Comment: No: D o not add to previous draw Performed By: #### 0 0071 #### [facility] [address] [place] [address], [facility] Urea nitrogen [Mass/Vol] 17 mg/dL Normal 7-25 [facility] Comment on above: Order Comment: No: D o not add to previous draw Performed By: #### 0 0071 #### [facility] [address] [place] [address], [facility] CBC COMPLETE BLOOD COUNTon 09-30-2019 Erythrocyte distribution width (RBC) [Ratio] 17.3 % High 11.5-15.0 [facility] Comment on above: Order Comment: 12 ho urs post vitamin K administration/pre-procedure warfarin reversal No: Do not add to previous draw Performed By: #### 5 6101 #### [facility] [address] [place] [address], [facility] Hematocrit (Bld) [Volume fraction] 37.7 % Normal 36.0-45.0 [facility] Comment on above: Order Comment: 12 ho urs post vitamin K administration/pre-procedure warfarin reversal No: Do not add to previous draw Performed By: #### 5 6101 #### [facility] [address] [place] [address], [facility] Hemoglobin (Bld) [Mass/Vol] 12.0 g/dL Normal 12.0-15.0 [facility] Comment on above: Order Comment: 12 ho urs post vitamin K administration/pre-procedure warfarin reversal No: Do not add to previous draw Performed By: #### 5 6101 #### [facility] [address] [place] [address], [facility] MCH (RBC) [Entitic mass] 29.0 pg Normal 27.0-33.0 [facility] Comment on above: Order Comment: 12 ho urs post vitamin K administration/pre-procedure warfarin reversal No: Do not add to previous draw Performed By: #### 5 6101 #### [facility] [address] [place] [address], [facility] MCHC (RBC) [Mass/Vol] 31.8 g/dL Low 32.0-35.0 [facility] Comment on above: Order Comment: 12 ho urs post vitamin K administration/pre-procedure warfarin reversal No: Do not add to previous draw Performed By: #### 5 6101 #### [facility] [address] [place] [address], [facility] MCV (RBC) [Entitic vol] 91.1 fL Normal 82.0-98.0 [facility] Comment on above: Order Comment: 12 ho urs post vitamin K administration/pre-procedure warfarin reversal No: Do not add to previous draw Performed By: #### 5 6101 #### [facility] [address] [place] [address], [facility] Nucleated RBC/100 WBC (Bld) [Ratio] 0 % Normal 0-0 [facility] Comment on above: Order Comment: 12 ho urs post vitamin K administration/pre-procedure warfarin reversal No: Do not add to previous draw Performed By: #### 5 6101 #### [facility] [address] [place] [address], [place] PLAT CNT 233 10*3/uL Normal 150-400 [facility] Comment on above: Order Comment: 12 ho urs post vitamin K administration/pre-procedure warfarin reversal No: Do not add to previous draw Performed By: #### 5 6101 #### [facility] [address] [place] [address], [facility] RBC (Bld) [#/Vol] 4.14 10*6/uL Normal 3.80-5.00 [facility] Comment on above: Order Comment: 12 ho urs post vitamin K administration/pre-procedure warfarin reversal No: Do not add to previous draw Performed By: #### 5 6101 #### [facility] [address] [place] [address], [facility] WBC (Bld) [#/Vol] 9.44 10*3/uL Normal 4.00-10.60 [facility] Comment on above: Order Comment: 12 ho urs post vitamin K administration/pre-procedure warfarin reversal No: Do not add to previous draw Performed By: #### 5 6101 #### [facility] [address] [place] [address], [place] HEMATOCRITon 07-30-2020 Hematocrit (Bld) [Volume fraction] 43.9 % Normal 36.0-45.0 [facility] Comment on above: Order Comment: No: D o not add to previous draw Performed By: #### 5 3629, 08004, 67153 #### [facility] [address] [place] [address], [facility] HEMOGLOBINon 07-30-2020 Hemoglobin (Bld) [Mass/Vol] 13.5 g/dL Normal 12.0-15.0 [facility] Comment on above: Order Comment: No: D o not add to previous draw Performed By: #### 5 3629, 22654, 36717 #### [facility] [address] [place] [address], [facility] PROTHROMBIN TIMEon 0 INR Coag (PPP) [Relative time] 1.22 {INR} High 0.91-1.16 [facility] Comment on above: Order Comment: No: D [...] RANGE. CHEST 1995;108:231S-246S. Performed By: #### 0 70, 97401 #### [facility] [address] [place] [address], [facility] PT Coag (PPP) [Time] 15.4 s High 12.3-14.8 [facility] Comment on above: Order Comment: No: D o not add to previous draw Result Comment: ALL RESULTS MUST BE INTERPRETED WITH RESPECT TO BLOOD DRAWING ARTIFACT OR DILUTION ERROR OF ANTICOAGULANT AT THE TIME OF SAMPLING. Performed By: #### 0 0071, 94510 #### [facility] [address] UFH HEPARIN ASSAYon 07-30-20 UNFRACTIONATED HEPARIN 0.45 IU/mL Normal 0.30-0.70 [facility] Comment on above: Result Comment: Laporte roxaban and Apixaban will interfere with the anti Xa assay used to monitor UFH and LMWH. Performed By: #### 0 007, 89920 #### [facility] [address] [facility]. [address] UNFRACTIONATED HEPARIN 0.52 IU/mL Normal 0.30-0.70 [facility] Comment on above: Result Comment: Aracelis roxaban and Apixaban will interfere with the anti Xa assay used to monitor UFH and LMWH. Performed By: #### 0 0071, 75768 #### [facility] [address] [facility]. [address] APTTon 07-29-2020 aPTT Coag (Bld) [Time] s Critically high 25.0-35. 0 [facility] Comment on above: Result Comment: ALL RESULTS [...] RN @0210 Performed By: #### 0 70, 31481 #### [facility] [address] BASIC METABOLIC PANELon - Calcium [Mass/Vol] 7.4 mg/dL Low 8.6-10.3 [facility] Comment on above: Order Comment: No: D o not add to previous draw Performed By: #### 0 0071, 47856 #### [facility] [address] [place] [address], [place] Chloride [Moles/Vol] 101 mmol/L Normal 98-107 [facility] Comment on above: Order Comment: No: D o not add to previous draw Performed By: #### 0 0071, 21863 #### [facility] [address] [place] [address], [place] CO2 [Moles/Vol] 24 mmol/L Normal 21-31 [facility] Comment on above: Order Comment: No: D o not add to previous draw Performed By: #### 0 0071, 38623 #### [facility] [address] [place] [address], [place] Creatinine [Mass/Vol] 1.02 mg/dL Normal 0.60-1.20 [facility] Comment on above: Order Comment: No: D o not add to previous draw Performed By: #### 0 0071, 81139 #### [facility] [address] [place] [address], [place] GFR/1.73 sq M predicted among blacks MDRD (S/P/Bld) [Vol rate/Area] mL/min/{1.73_m2} Normal >60 [facility] Comment on above: Order Comment: No: D o not add to previous draw Result Comment: Calc ulation may not be valid for patients over 70 years Performed By: #### 0 0071, 05165 #### [facility] [address] [place] [address], [place] GFR/1.73 sq M predicted among non-blacks MDRD (S/P/Bld) [Vol rate/Area] 53 ml/min/1.73sq m Abnormal >60 [facility] Comment on above: Order Comment: No: D o not add to previous draw Result Comment: Calc ulation may not be valid for patients over 70 years Performed By: #### 0 0071, 58593 #### [facility] [address] [place] [address], [place] Glucose [Mass/Vol] 314 mg/dL High 70-100 [facility] Comment on above: Order Comment: No: D o not add to previous draw Performed By: #### 0 0071, 24508 #### [facility] [address] [place] [address], [facility] Potassium [Moles/Vol] 3.1 mmol/L Low 3.5-5.1 [facility] Comment on above: Order Comment: No: D o not add to previous draw Performed By: #### 0 0071, 91510 #### [facility] [address] [place] [address], [facility] Sodium [Moles/Vol] 139 mmol/L Normal 136-145 [facility] Comment on above: Order Comment: No: D o not add to previous draw Performed By: #### 0 0071, 09312 #### [facility] [address] [place] [address], [facility] Urea nitrogen [Mass/Vol] 15 mg/dL Normal 7-25 [facility] Comment on above: Order Comment: No: D o not add to previous draw Performed By: #### 0 0071, 05268 #### [facility] [address] [place] [address], [facility] MAGNESIUM BLOODon 07-29-2020 Magnesium [Mass/Vol] 1.5 mg/dL Low 1.9-2.7 [facility] Comment on above: Order Comment: No: D o not add to previous draw Performed By: #### 0 0071, 26806 #### [facility] [address] [place] [address], [facility] PORTABLE CHEST 1 VIEWon 07-20 PORTABLE CHEST 1 VIEW [facility] Department of Radiology [address] [place] [id number] Patient Name: LESA GOLDEN : 1940 Sex: F Age: Race: White Pt. Location: [address] [place] [address] Patient Status: I Ordered Date: 07/29/2020 8:25:00 [...] atelectasis. Electronically signed: Emmanuel Armas. Transcribed by: [email or web address], User Resident: Electronically Signed by: EMMANUEL ARMAS @ 07/29/2020 09:41 AM Normal [facility] Comment on above: Order Comment: 12 ho urs post vitamin K administration/pre-procedure warfarin reversal No: Do not add to previous draw PROTHROMBIN TIMEon 0 INR Coag (PPP) [Relative time] 1.45 {INR} High 0.91-1.16 [facility] Comment on above: Order Comment: No: D [...] CHEST 1995;108:231S-246S. Performed By: #### 0 0071, 95419 #### [facility] [address] PT Coag (PPP) [Time] 17.7 s High 12.3-14.8 [facility] Comment on above: Order Comment: No: D o not add to previous draw Result Comment: ALL RESULTS MUST BE INTERPRETED WITH RESPECT TO BLOOD DRAWING ARTIFACT OR DILUTION ERROR OF ANTICOAGULANT AT THE TIME OF SAMPLING. Performed By: #### 0 0071, [id number] #### [facility] 3000 [facility]. [address] UFH HEPARIN ASSAYon 07-29-20 20 UNFRACTIONATED HEPARIN 0.89 IU/mL High 0.30-0.70 [facility] Comment on above: Result Comment: Aracelis roxaban and Apixaban will interfere with the anti Xa assay used to monitor UFH and LMWH. Performed By: #### 0 0071, 03774 #### [facility] [address] UNFRACTIONATED HEPARIN 0.78 IU/mL High 0.30-0.70 [facility] Comment on above: Result Comment: Laporte roxaban and Apixaban will interfere with the anti Xa assay used to monitor UFH and LMWH. Performed By: #### 0 0071, 51298 #### [facility] [address] [place] [address], [facility] UNFRACTIONATED HEPARIN >1.00 Critically high 0.30-0.[address] [facility] Comment on above: Order Comment: 12 ho urs post vitamin K administration/pre-procedure warfarin reversal No: Do not add to previous draw Result Comment: Aracelis roxaban and Apixaban will interfere with the anti Xa assay used to monitor UFH and LMWH. UFH=1.22 RESULTS CHECKED AND CALLED. ACCURATELY READ BACK BY SAEID RING RN @0210 Performed By: #### 5 6101 #### [facility] 3000 [place] [address], [facility] BASIC METABOLIC PANELon 12-0 -2020 Calcium [Mass/Vol] 8.5 mg/dL Low 8.6-10.3 [facility] Comment on above: Order Comment: No: D o not add to previous draw Performed By: #### 0 0071 #### [facility] 3000 [facility] [place] [address], [facility] Chloride [Moles/Vol] 108 mmol/L High 98-107 [facility] Comment on above: Order Comment: No: D o not add to previous draw Performed By: #### 0 0071 #### [facility] 3000 [facility] [place] [address], [facility] CO2 [Moles/Vol] 24 mmol/L Normal 21-31 [facility] Comment on above: Order Comment: No: D o not add to previous draw Performed By: #### 0 0071 #### [facility] 3000 [facility] [place] [address], [facility] Creatinine [Mass/Vol] 1.03 mg/dL Normal 0.60-1.20 [facility] Comment on above: Order Comment: No: D o not add to previous draw Performed By: #### 0 0071 #### [facility] [address] [place] [address], [place] GFR/1.73 sq M predicted among blacks MDRD (S/P/Bld) [Vol rate/Area] mL/min/{1.73_m2} Normal >60 [facility] Comment on above: Order Comment: No: D o not add to previous draw Result Comment: Calc ulation may not be valid for patients over 70 years Performed By: #### 0 0071 #### [facility] [address] [place] [address], [place] GFR/1.73 sq M predicted among non-blacks MDRD (S/P/Bld) [Vol rate/Area] 52 ml/min/1.73sq m Abnormal >60 [facility] Comment on above: Order Comment: No: D o not add to previous draw Result Comment: Calc ulation may not be valid for patients over 70 years Performed By: #### 0 0071 #### [facility] [address] [place] [address], [place] Glucose [Mass/Vol] 120 mg/dL High 70-100 [facility] Comment on above: Order Comment: No: D o not add to previous draw Performed By: #### 0 0071 #### [facility] [address] [place] [address], [place] Potassium [Moles/Vol] 3.7 mmol/L Normal 3.5-5.1 [facility] Comment on above: Order Comment: No: D o not add to previous draw Performed By: #### 0 0071 #### [facility] [address] [place] [address], [place] Sodium [Moles/Vol] 141 mmol/L Normal 136-145 [facility] Comment on above: Order Comment: No: D o not add to previous draw Performed By: #### 0 0071 #### [facility] [address] [place] [address], [place] Urea nitrogen [Mass/Vol] 24 mg/dL Normal 7-25 [facility] Comment on above: Order Comment: No: D o not add to previous draw Performed By: #### 0 0071 #### [facility] [address] CBC COMPLETE BLOOD COUNTon 09-28-2019 Erythrocyte distribution width (RBC) [Ratio] 16.9 % High 11.5-15.0 [facility] Comment on above: Order Comment: 12 ho urs post vitamin K administration/pre-procedure warfarin reversal No: Do not add to previous draw Performed By: #### 5 6101 #### [facility] [address] Hematocrit (Bld) [Volume fraction] 40.8 % Normal 36.0-45.0 [facility] Comment on above: Order Comment: 12 ho urs post vitamin K administration/pre-procedure warfarin reversal No: Do not add to previous draw Performed By: #### 5 6101 #### [facility] [address] [facility] Hemoglobin (Bld) [Mass/Vol] 12.6 g/dL Normal 12.0-15.0 [facility] Comment on above: Order Comment: 12 ho urs post vitamin K administration/pre-procedure warfarin reversal No: Do not add to previous draw Performed By: #### 5 6101 #### [facility] [address] [facility] [place] [id number], [facility] MCH (RBC) [Entitic mass] 28.5 pg Normal 27.0-33.0 [facility] Comment on above: Order Comment: 12 ho urs post vitamin K administration/pre-procedure warfarin reversal No: Do not add to previous draw Performed By: #### 5 6101 #### [facility] [address] [place] [id number], [facility] MCHC (RBC) [Mass/Vol] 30.9 g/dL Low 32.0-35.0 [facility] Comment on above: Order Comment: 12 ho urs post vitamin K administration/pre-procedure warfarin reversal No: Do not add to previous draw Performed By: #### 5 6101 #### [facility] [address] [place] [address], [facility] MCV (RBC) [Entitic vol] 92.3 fL Normal 82.0-98.0 [facility] Comment on above: Order Comment: 12 ho urs post vitamin K administration/pre-procedure warfarin reversal No: Do not add to previous draw Performed By: #### 5 6101 #### [facility] [address] [place] [address], [facility] Nucleated RBC/100 WBC (Bld) [Ratio] 1 % High 0-0 [facility] Comment on above: Order Comment: 12 ho urs post vitamin K administration/pre-procedure warfarin reversal No: Do not add to previous draw Performed By: #### 5 6101 #### [facility] [address] [place] [address], [facility] PLAT CNT 245 10*3/uL Normal 150-400 [facility] Comment on above: Order Comment: 12 ho urs post vitamin K administration/pre-procedure warfarin reversal No: Do not add to previous draw Performed By: #### 5 6101 #### [facility] [address] [place] [address], [facility] RBC (Bld) [#/Vol] 4.42 10*6/uL Normal 3.80-5.00 [facility] Comment on above: Order Comment: 12 ho urs post vitamin K administration/pre-procedure warfarin reversal No: Do not add to previous draw Performed By: #### 5 6101 #### [facility] [address] [place] [address], [place] WBC (Bld) [#/Vol] 9.82 10*3/uL Normal 4.00-10.60 [facility] Comment on above: Order Comment: 12 ho urs post vitamin K administration/pre-procedure warfarin reversal No: Do not add to previous draw Performed By: #### 5 6101 #### [id number] [place] [address] CT BRAIN WO CONTRASTon 07-28 CT BRAIN WO CONTRAST [facility] Department of Radiology [address] [place] [id number] Patient Name: LESA GOLDEN : 1940 Sex: F Age: Race: White Pt. Location: [id number] Patient Status: I Ordered Date: 07/28/2020 4:35:00 PM Completed Date: 07/28/2020 04:43 PM Requesting Provider: ABHILASH GO Attending Provider: JELANI SORIA Report Copy To: Signs & Symptoms: stroke alert in label folder post wilmer History: stroke alert in label folder post wilmer Comments: stroke alert in label folder post wilmer Exam: CT BRAIN WO CONTRAST CT BRAIN WO CONTRAST 07/28/2020 4:43 PM CLINICAL INDICATIONS: stroke alert in label folder post wilmer TECHNOLOGIST COMMENTS: left sided weakness QUESTION FOR THE RADIOLOGIST: stroke alert in label folder post wilmer PROTOCOL: Axial CT images of [...] findings. Electronically signed: Asia Javier. Transcribed by: [email or web address], User Resident: Electronically Signed by: ASIA JAVIER @ 07/28/2020 04:48 PM Normal [facility] Comment on above: Order Comment: 12 ho urs post vitamin K administration/pre-procedure warfarin reversal No: Do not add to previous draw CTA HEADon 07-28-2020 CTA HEAD [facility] Department of Radiology [address] [place] [address] Patient Name: LESA GOLDEN : 1940 Sex: F Age: Race: White Pt. Location: [id number] Patient Status: I Ordered Date: 07/28/2020 4:35:00 PM Completed Date: 07/28/2020 05:11 PM Requesting Provider: ABHILASH GO Attending Provider: JELANI SORIA Report Copy To: Signs & Symptoms: stroke alert in label folder post wilmer History: stroke alert in label folder post wilmer Comments: stroke alert in label folder post wilmer Exam: CTA HEAD CTA HEAD 07/28/2020 5:11 PM CLINICAL INDICATIONS: stroke alert in label folder post wilmer TECHNOLOGIST COMMENTS: post wilmer stroke alert weakness QUESTION FOR THE RADIOLOGIST: stroke alert in label folder post wilmer PROTOCOL: Axial CT angiography images [...] occlusion. Electronically signed: Asia Javier. Transcribed by: [email or web address], User Resident: Electronically Signed by: ASIA JAVIER @ 07/28/2020 05:16 PM Normal [facility] Comment on above: Order Comment: No: D o not add to previous draw CTA NECKon 07-28-2020 CTA NECK [facility] Department of Radiology [address] [place] [phone] Patient Name: LESA GOLDEN : 1940 Sex: F Age: Race: White Pt. Location: [id number] Patient Status: I Ordered Date: 07/28/2020 4:35:00 PM Completed Date: 07/28/2020 05:11 PM Requesting Provider: ABHILASH GO Attending Provider: JELANI SORIA Report Copy To: Signs & Symptoms: stroke alert in label folder post wilmer History: stroke alert in label folder post wilmer Comments: stroke alert in label folder post wilmer Exam: CTA NECK CTA NECK 07/28/2020 5:11 PM CLINICAL INDICATIONS: stroke alert in label folder post wilmer TECHNOLOGIST COMMENTS: post wilmer stroke alert weakness QUESTION FOR THE RADIOLOGIST: stroke alert in label folder post wilmer PROTOCOL: Axial CT angiography images were obtained with IV contrast. CONTRAST: TECHNIQUE: Multi-detector CT angiography axial slices of the neck were obtained during intravenous administration of IV contrast material. Sagittal, coronal, and 3-D reconstructions were performed and viewed on a separate workstation. The [place] Symptomatic Carotid Endarterectomy Trial (NASCET) method for [...] achievable Electronically signed: Asia Javier. Transcribed by: [email or web address], User Resident: Electronically Signed by: ASIA JAVIER @ 07/28/2020 05:19 PM Normal [facility] Comment on above: Order Comment: No: D o not add to previous draw Cardiovascular Lab Reporton 07-28-2020 Cardiovascular Lab Report [facility] Patient Name: [facility] Maggy MR #: [id number] Department of Physician: Alfredo Ring M.D. Division of Service Date: 07/28/2020 Cardiology Birthdate: 1940 Adult Cardiovascular Room #: 3AB [id number] [place] [address] Cardiovascular Laboratory Report PROCEDURE PERFORMED: Transesophageal echocardiogram and cardioversion. INDICATION: Atrial fibrillation. FELLOW: Hiwot Owens M.D. PROCEDURE IN DETAIL: An informed consent was obtained from the patient after explaining indications, risks and benefits, and alternatives. The patient understood and agreed and signed the consent form. The patient was brought to the label folder and transesophageal echocardiogram was performed under conscious [...] Owens MD Date Trans: 07/28/2020 04:12 P/boaz [id number] cc: Chester العلي D.O. [address] [place] [phone] [facility] PROTHROMBIN TIMEon 0 INR Coag (PPP) [Relative time] 1.67 {INR} High 0.91-1.16 [facility] Comment on above: Order Comment: No: D [...] CHEST 1995;108:231S-246S. Performed By: #### 0 007, 20210 #### [facility] [address] PT Coag (PPP) [Time] 19.7 s High 12.3-14.8 [facility] Comment on above: Order Comment: No: D o not add to previous draw Result Comment: ALL RESULTS MUST BE INTERPRETED WITH RESPECT TO BLOOD DRAWING ARTIFACT OR DILUTION ERROR OF ANTICOAGULANT AT THE TIME OF SAMPLING. Performed By: #### 0 007, 11127 #### [facility] [address] INR Coag (PPP) [Relative time] 1.85 {INR} High 0.91-1.16 [facility] Comment on above: Order Comment: 12 ho [...] 1995;108:231S-246S. Performed By: #### 5 6101 #### [facility] 3000 [facility]. [address] PT Coag (PPP) [Time] 21.4 s High 12.3-14.8 [facility] Comment on above: Order Comment: 12 ho urs post vitamin K administration/pre-procedure warfarin reversal No: Do not add to previous draw Result Comment: ALL RESULTS MUST BE INTERPRETED WITH RESPECT TO BLOOD DRAWING ARTIFACT OR DILUTION ERROR OF ANTICOAGULANT AT THE TIME OF SAMPLING. Performed By: #### 5 6101 #### [facility] [address] UFH HEPARIN ASSAYon 07-28-20 20 UNFRACTIONATED HEPARIN >1.00 Critically high 0.30-0.7 0 [facility] Comment on above: Result Comment: Aracelis roxaban and Apixaban will interfere with the anti Xa assay used to monitor UFH and LMWH. Results called. Accurately read back by Khushbu Shetty RN at 1415. Patient given a bolus of heparin prior to draw, causing elevated heparin levels Performed By: #### 5 6101 #### [facility] 3000 [facility]. [address] UNFRACTIONATED HEPARIN 0.38 IU/mL Normal 0.30-0.70 [facility] Comment on above: Result Comment: Laporte roxaban and Apixaban will interfere with the anti Xa assay used to monitor UFH and LMWH. Performed By: #### 0 0071, 23087 #### [facility] 3000 [facility] [place] [address], [facility] APTTon 07-27-2020 aPTT Coag (Bld) [Time] 39.6 s High 25.0-35.0 [facility] Comment on above: Order Comment: No: D [...] THIS PURPOSE. Performed By: #### 5 3629, 13152, 30482 #### [facility] 3000 [facility] [place] [address], [facility] aPTT Coag (Bld) [Time] 47.4 s High 25.0-35.0 [facility] Comment on above: Result Comment: ALL RESULTS [...] PURPOSE. Performed By: #### 5 6101 #### [facility] 3000 [place] [address], [facility] LIPID PROFILEon 07-27-2020 Cholesterol [Mass/Vol] 173 mg/dL Normal 120-200 [facility] Comment on above: Result Comment: CHOL ESTEROL REFERENCE RANGE: 20 YEARS AND OLDER CARDIOVASCULAR RISK Less than 200 mg/dl Low Risk 200 to 239 mg/dl Borderline Risk 240 mg/dl and greater High Risk Performed By: #### 5 3629, 58274, 14853 #### [facility] 3000 [facility] [place] [address], [facility] Cholesterol in HDL [Mass/Vol] 33 mg/dL Normal 23-92 [facility] Comment on above: Result Comment: Slig ht variation in normal range could be due to gender and/or age. HDL CHOLESTEROL REFERENCE RANGE: 20 years and older Cardiovascular Risk > or =60 mg/dL Desirable 40 TO 59 mg/dL Low Risk <40 mg/dL High Risk Performed By: #### 5 3629, 34174, 99330 #### [facility] [address] [facility] [place] [address], [facility] Cholesterol in LDL [Mass/Vol] 98 mg/dL Normal 0-130 [facility] Comment on above: Result Comment: LDL IS A CALCULATION LDL IS ONLY VALID IF THE TRIG IS LESS THAN 400. Performed By: #### 5 3629, 38843, 88312 #### [facility] [address] [facility] [place] [address], [facility] Cholesterol.total/Chol esterol in HDL [Mass ratio] 5.2 {ratio} High 0.0-4.5 [facility] Comment on above: Performed By: #### 5 3629, 72655, 42511 #### [facility] [address] [facility] [place] [address], [facility] NON-HDL CHOLESTEROL 140 mg/dL Normal [facility] Comment on above: Performed By: #### 5 3629, 53630, 72722 #### [facility] [address] [place] [address], [facility] Triglyceride [Mass/Vol] 210 mg/dL High 40-149 [facility] Comment on above: Result Comment: TRIG LYCERIDE REFERENCE RANGE: 20 YEARS AND OLDER CARDIOVASCULAR RISK LESS THAN 150 mg/dl LOW RISK 150 TO 199 mg/dl BORDERLINE RISK 200 mg/dl AND GREATER HIGH RISK Performed By: #### 5 3629, 87732, 23026 #### [facility] [address] [place] [address], [facility] VLDL CHOL 42 mg/dL High 0-40 [facility] Comment on above: Performed By: #### 5 3629, 72643, 03550 #### [facility] [address] [place] [address], [facility] PROTHROMBIN TIMEon 0 INR Coag (PPP) [Relative time] 2.07 {INR} High 0.91-1.16 [facility] Comment on above: Result Comment: ACCC P [...] CHEST 1995;108:231S-246S. Performed By: #### 5 3629, 94025, 74723 #### [facility] [address] [place] [address], [facility] PT Coag (PPP) [Time] 23.4 s High 12.3-14.8 [facility] Comment on above: Result Comment: ALL RESULTS MUST BE INTERPRETED WITH RESPECT TO BLOOD DRAWING ARTIFACT OR DILUTION ERROR OF ANTICOAGULANT AT THE TIME OF SAMPLING. Performed By: #### 5 3629, 49167, 36644 #### [facility] [address] [place] [address], [facility] INR Coag (PPP) [Relative time] 3.07 {INR} High 0.91-1.16 [facility] Comment on above: Order Comment: 12 ho [...] 1995;108:231S-246S. Performed By: #### 5 6101 #### [facility] [address] [place] [address], [facility] PT Coag (PPP) [Time] 32.0 s High 12.3-14.8 [facility] Comment on above: Order Comment: 12 ho urs post vitamin K administration/pre-procedure warfarin reversal No: Do not add to previous draw Result Comment: ALL RESULTS MUST BE INTERPRETED WITH RESPECT TO BLOOD DRAWING ARTIFACT OR DILUTION ERROR OF ANTICOAGULANT AT THE TIME OF SAMPLING. Performed By: #### 5 6101 #### [facility] [address] [place] [address], [facility] TROPONIN-Ion 07-27-2020 Troponin I.cardiac [Mass/Vol] 0.01 ng/mL Normal 0.00-0.04 [facility] Comment on above: Order Comment: No: D o not add to previous draw Result Comment: REFE RENCE RANGES: 0.00 - 0.04 ng/ml NORMAL 0.05 - 0.50 ng/ml INDETERMINATE > 0.50 ng/ml CONSISTENT WITH AN M.I. Performed By: #### 5 3629, 77202, 26850 #### [facility] [address] UFH HEPARIN ASSAYon 07-27-20 20 UNFRACTIONATED HEPARIN <0.10 Critically low 0.30-0.70 [facility] Comment on above: Result Comment: Laporte roxaban and Apixaban will interfere with the anti Xa assay used to monitor UFH and LMWH. RESULTS CHECKED AND CALLED. ACCURATELY READ BACK BY Saeid Lees RN at 2122. Performed By: #### 5 3629, 57823, 52120 #### [facility] [address] APTTon 07-26-2020 aPTT Coag (Bld) [Time] 44.0 s High 25.0-35.0 [facility] Comment on above: Order Comment: No: D [...] THIS PURPOSE. Performed By: #### 5 3629, 04967, 31746 #### [facility] [address] BASIC METABOLIC PANELon Calcium [Mass/Vol] 8.4 mg/dL Low 8.6-10.3 [facility] Comment on above: Order Comment: No: D o not add to previous draw Performed By: #### 5 3629, 08653, 59083 #### [facility] [address] [place] [address], [place] Chloride [Moles/Vol] 107 mmol/L Normal 98-107 [facility] Comment on above: Order Comment: No: D o not add to previous draw Performed By: #### 5 3629, 75001, 84211 #### [facility] [address] [place] [address], [place] CO2 [Moles/Vol] 23 mmol/L Normal 21-31 [facility] Comment on above: Order Comment: No: D o not add to previous draw Performed By: #### 5 3629, 15448, 50301 #### [facility] [address] [place] [address], [place] Creatinine [Mass/Vol] 1.00 mg/dL Normal 0.60-1.20 [facility] Comment on above: Order Comment: No: D o not add to previous draw Performed By: #### 5 3629, 34524, 90732 #### [facility] [address] [place] [address], [place] GFR/1.73 sq M predicted among blacks MDRD (S/P/Bld) [Vol rate/Area] mL/min/{1.73_m2} Normal >60 [facility] Comment on above: Order Comment: No: D o not add to previous draw Result Comment: Calc ulation may not be valid for patients over 70 years Performed By: #### 5 3629, 18321, 95069 #### [facility] [address] [place] [address], [place] GFR/1.73 sq M predicted among non-blacks MDRD (S/P/Bld) [Vol rate/Area] 53 ml/min/1.73sq m Abnormal >60 [facility] Comment on above: Order Comment: No: D o not add to previous draw Result Comment: Calc ulation may not be valid for patients over 70 years Performed By: #### 5 3629, 92160, 31425 #### [facility] [address] [place] [address], [place] Glucose [Mass/Vol] 144 mg/dL High 70-100 [facility] Comment on above: Order Comment: No: D o not add to previous draw Performed By: #### 5 362, 68785, 10841 #### [facility] [address] [place] [address], [place] Potassium [Moles/Vol] 3.9 mmol/L Normal 3.5-5.1 [facility] Comment on above: Order Comment: No: D o not add to previous draw Performed By: #### 5 362, 92212, 35599 #### [facility] [address] [place] [address], [place] Sodium [Moles/Vol] 139 mmol/L Normal 136-145 [facility] Comment on above: Order Comment: No: D o not add to previous draw Performed By: #### 5 3629, 92634, 77738 #### [facility] [address] [place] [address], [place] Urea nitrogen [Mass/Vol] 24 mg/dL Normal 7-25 [facility] Comment on above: Order Comment: No: D o not add to previous draw Performed By: #### 5 3629, 14851, 12931 #### [facility] [address] [place] [address], [place] BNP (B-TYPE NATRIURETIC PEPT BALTA)on 07-26-2020 Natriuretic peptide B (Bld) [Mass/Vol] 259 pg/mL High 0-100 [facility] Comment on above: Order Comment: No: D o not add to previous draw Result Comment: Give n the appropriate clinical setting a BNP result of >100 pg/mL indicates congestive heart failure. Performed By: #### 5 3629, 70293, 52162 #### [facility] [address] [place] [place] [address], [facility] CBC W/DIFFon 07-26-2020 ABS BASOPHILS 0.1 10*3/uL Normal 0.0-0.2 [facility] Comment on above: Order Comment: 12 ho urs post vitamin K administration/pre-procedure warfarin reversal No: Do not add to previous draw Performed By: #### 5 [id number] #### [facility] [address] [facility] [address], [facility] ABS IMM GRANS 0.3 10*3/uL High 0.0-0.2 [facility] Comment on above: Order Comment: 12 ho urs post vitamin K administration/pre-procedure warfarin reversal No: Do not add to previous draw Performed By: #### 5 [id number] #### [facility] [address] [place] [address], [facility] ABS NEUTROPHILS 5.9 10*3/uL Normal 1.6-7.6 [facility] Comment on above: Order Comment: 12 ho urs post vitamin K administration/pre-procedure warfarin reversal No: Do not add to previous draw Performed By: #### 5 [id number] #### [facility] [address] [place] [address], [facility] Basophils/100 WBC (Bld) 0.8 % Normal 0.0-1.0 [facility] Comment on above: Order Comment: 12 ho urs post vitamin K administration/pre-procedure warfarin reversal No: Do not add to previous draw Performed By: #### 5 [id number] #### [facility] [address] [facility] [place] [address], [facility] Eosinophils (Bld) [#/Vol] 0.4 10*3/uL Normal 0.0-0.5 [facility] Comment on above: Order Comment: 12 ho urs post vitamin K administration/pre-procedure warfarin reversal No: Do not add to previous draw Performed By: #### 5 [id number] #### [facility] [address] [facility] [place] [place] [address], [facility] Eosinophils/100 WBC (Bld) 3.8 % Normal 0.0-6.0 [facility] Comment on above: Order Comment: 12 ho urs post vitamin K administration/pre-procedure warfarin reversal No: Do not add to previous draw Performed By: #### 5 [id number] #### [facility] [address] [place] [address], [facility] Erythrocyte distribution width (RBC) [Ratio] 16.9 % High 11.5-15.0 [facility] Comment on above: Order Comment: 12 ho urs post vitamin K administration/pre-procedure warfarin reversal No: Do not add to previous draw Performed By: #### 5 [id number] #### [facility] [address] [place] [address], [facility] Hematocrit (Bld) [Volume fraction] 43.8 % Normal 36.0-45.0 [facility] Comment on above: Order Comment: 12 ho urs post vitamin K administration/pre-procedure warfarin reversal No: Do not add to previous draw Performed By: #### 5 [id number] #### [facility] [address] [place] [address], [facility] Hemoglobin (Bld) [Mass/Vol] 13.7 g/dL Normal 12.0-15.0 [facility] Comment on above: Order Comment: 12 ho urs post vitamin K administration/pre-procedure warfarin reversal No: Do not add to previous draw Performed By: #### 5 [id number] #### [facility] [address] [place] [address], [facility] IMMATURE GRANS 3.6 % High 0.0-1.0 [facility] Comment on above: Order Comment: 12 ho urs post vitamin K administration/pre-procedure warfarin reversal No: Do not add to previous draw Performed By: #### 5 [id number] #### [facility] [address] [place] [address], [facility] Lymphocytes (Bld) [#/Vol] 2.1 10*3/uL Normal 1.2-4.0 [facility] Comment on above: Order Comment: 12 ho urs post vitamin K administration/pre-procedure warfarin reversal No: Do not add to previous draw Performed By: #### 5 [id number] #### [facility] [address] [place] [address], [facility] Lymphocytes/100 WBC (Bld) 22.0 % Normal 20.0-45.0 [facility] Comment on above: Order Comment: 12 ho urs post vitamin K administration/pre-procedure warfarin reversal No: Do not add to previous draw Performed By: #### 5 [id number] #### [facility] [address] [place] [address], [facility] MCH (RBC) [Entitic mass] 29.0 pg Normal 27.0-33.0 [facility] Comment on above: Order Comment: 12 ho urs post vitamin K administration/pre-procedure warfarin reversal No: Do not add to previous draw Performed By: #### 5 [id number] #### [facility] [address] MCHC (RBC) [Mass/Vol] 31.3 g/dL Low 32.0-35.0 [facility] Comment on above: Order Comment: 12 ho urs post vitamin K administration/pre-procedure warfarin reversal No: Do not add to previous draw Performed By: #### 5 [id number] #### [facility] [address] [place] [address], [facility] MCV (RBC) [Entitic vol] 92.6 fL Normal 82.0-98.0 [facility] Comment on above: Order Comment: 12 ho urs post vitamin K administration/pre-procedure warfarin reversal No: Do not add to previous draw Performed By: #### 5 [id number] #### [facility] [address] [place] [address], [facility] Monocytes (Bld) [#/Vol] 0.7 10*3/uL Normal 0.1-1.0 [facility] Comment on above: Order Comment: 12 ho urs post vitamin K administration/pre-procedure warfarin reversal No: Do not add to previous draw Performed By: #### 5 [id number] #### [facility] [address] [place] [address], [place] MONOS 7.5 % Normal 5.0-12.0 [facility] Comment on above: Order Comment: 12 ho urs post vitamin K administration/pre-procedure warfarin reversal No: Do not add to previous draw Performed By: #### 5 [id number] #### [facility] [address] [place] [address], [facility] Neutrophils/100 WBC (Bld) 62.3 % Normal 40.0-72.0 [facility] Comment on above: Order Comment: 12 ho urs post vitamin K administration/pre-procedure warfarin reversal No: Do not add to previous draw Performed By: #### 5 [id number] #### [facility] [address] [place] [address], [facility] Nucleated RBC/100 WBC (Bld) [Ratio] 1 % High 0-0 [facility] Comment on above: Order Comment: 12 ho urs post vitamin K administration/pre-procedure warfarin reversal No: Do not add to previous draw Performed By: #### 5 [id number] #### [facility] [address] [place] [address], [place] PLAT CNT 296 10*3/uL Normal 150-400 [facility] Comment on above: Order Comment: 12 ho urs post vitamin K administration/pre-procedure warfarin reversal No: Do not add to previous draw Performed By: #### 5 [id number] #### [facility] [address] [place] [address], [place] RBC (Bld) [#/Vol] 4.73 10*6/uL Normal 3.80-5.00 [facility] Comment on above: Order Comment: 12 ho urs post vitamin K administration/pre-procedure warfarin reversal No: Do not add to previous draw Performed By: #### 5 [id number] #### [facility] [address] [place] [address], [place] WBC (Bld) [#/Vol] 9.48 10*3/uL Normal 4.00-10.60 [facility] Comment on above: Order Comment: 12 ho urs post vitamin K administration/pre-procedure warfarin reversal No: Do not add to previous draw Performed By: #### 5 [id number] #### [facility] [address] [facility]. [address] CPK-MB PROFILEon 07-26-2020 CK [Catalytic activity/Vol] 24 U/L Low 30-223 [facility] Comment on above: Order Comment: No: D o not add to previous draw Performed By: #### 1 0070, 34581, 90905, 67536, 83984, 08595 #### [facility] [address] CK.MB [Mass/Vol] 1.5 ng/mL Normal 0.0-5.0 [facility] Comment on above: Order Comment: No: D o not add to previous draw Result Comment: IF T OTAL CK <200 U/L AND: 1. CKMB IS 5-10 NG/ML----BORDERLINE 2. CKMB IS >10 NG/ML----[place] OF [place] OR IF TOTAL CK >200 U/L AND CKMB INDEX >1.9----[place] Performed By: #### 1 0070, 71826, 83771, 80668, 93168, 36067 #### [facility] [address] [facility] [place] [address], [facility] CK.MB [Mass/Vol] 6.3 ng/mL Critically high 0.0-1.9 [facility] Comment on above: Order Comment: No: D o not add to previous draw Performed By: #### 1 0070, 21666, 30191, 21220, 62684, 44803 #### [facility] [address] [place] [address], [facility] D DIMER TESTon 07-26-2020 D-DIMER TEST 2.34 mcg/mL FEU High 0.27-0.49 [facility] Comment on above: Order Comment: No: D o not add to previous draw Result Comment: D-Di ricky values of less than 0.50 ug/ml (FEU) are considered to be a negative predictor of thrombosis. However, the D-Dimer result should be used in conjunction with pretest probability and should not be used alone to diagnose a thrombotic event. Performed By: #### 5 3629, 79104, 37183 #### [facility] [address] History and Physicalon 07-26 History and Physical MR#: [id number] [facility] Pt. Name: Lesa Golden Admitted: 07/26/2020 Date of : 1940 Attending Physician: Jaqueline Quevedo M.D. Room #: [facility] 996001 Discharge Date: HISTORY AND PHYSICAL CHIEF COMPLAINT: Shortness of breath. HISTORY OF PRESENT ILLNESS: The patient is a 79-year-old female with a past medical history of atrial fibrillation, on Coumadin, fibromyalgia, hypertension, and history of COVID at the beginning of June, presented to [facility] as a direct transfer from [facility] ER. The patient presented to the ER today because of increasing shortness of breath. She states that it especially got worse over the weekends, so she came to the ER for evaluation. In the ER, she was found to be in atrial fibrillation with RVR and cardiology was called, so they requested the patient to be transferred to [facility]. Her initial heart rate was 120 to [...] Normal affect and mood. LABORATORY DATA: From [facility] ER shows white blood cells 9.1, hemoglobin [...] and GI prophylaxis. 7. PT, OT, and Human Resources Vice President for discharge planning. Electronically Signed by: Jaqueline Quevedo M.D. 07/27/2020 10:46 A Jaqueline Quevedo M.D. Date Dict: 07/26/2020/06:24 P/Jaqueline Quevedo M.D. Date Trans: 07/26/2020 07:50 P/mmo [id number] Normal [facility] LIVER BATTERYon 07-26-2020 Albumin [Mass/Vol] 3.4 g/dL Low 3.5-5.7 [facility] Comment on above: Order Comment: No: D o not add to previous draw Performed By: #### 5 3629, 95706, 55598 #### [facility] [address] [facility] [place] [address], [facility] ALKALINE PHOSPH 82 IU/L Normal 34-104 [facility] Comment on above: Order Comment: No: D o not add to previous draw Performed By: #### 5 3629, 30497, 56821 #### [facility] [address] [facility] [place] [address], [facility] ALT [Catalytic activity/Vol] 28 U/L Normal 7-52 [facility] Comment on above: Order Comment: No: D o not add to previous draw Performed By: #### 5 3629, 29984, 71813 #### [facility] [address] [place] [address], [facility] AST [Catalytic activity/Vol] 26 U/L Normal 13-39 [facility] Comment on above: Order Comment: No: D o not add to previous draw Performed By: #### 5 3629, 96740, 61875 #### [facility] [address] [place] [address], [place] Bilirubin [Mass/Vol] 0.6 mg/dL Normal 0.3-1.0 [facility] Comment on above: Order Comment: No: D o not add to previous draw Performed By: #### 5 3629, 03856, 30733 #### [facility] [address] [place] [address], [place] Bilirubin.direct [Mass/Vol] 0.2 mg/dL Normal 0.0-0.2 [facility] Comment on above: Order Comment: No: D o not add to previous draw Performed By: #### 5 3629, 03458, 43298 #### [facility] [address] [place] [address], [place] Protein [Mass/Vol] 5.8 g/dL Low 6.0-8.3 [facility] Comment on above: Order Comment: No: D o not add to previous draw Performed By: #### 5 3629, 48413, 83904 #### [facility] [address] [place] [address], [place] MAGNESIUM BLOODon 07-26-2020 Magnesium [Mass/Vol] 1.8 mg/dL Low 1.9-2.7 [facility] Comment on above: Order Comment: No: D o not add to previous draw Performed By: #### 5 3629, 36751, 54560 #### [facility] [address] [place] [address], [place] PHOSPHORUS BLOODon 0 Phosphate [Mass/Vol] 3.4 mg/dL Normal 2.5-5.0 [facility] Comment on above: Order Comment: No: D o not add to previous draw Performed By: #### 5 3629, 27986, 22548 #### [facility] [address] [place] [address], [facility] PROTHROMBIN TIMEon 0 INR Coag (PPP) [Relative time] 3.23 {INR} High 0.91-1.16 [facility] Comment on above: Order Comment: No: D [...] CHEST 1995;[id number]. Performed By: #### 5 3629, 69449, 18118 #### [facility] [address] [place] [address], [facility] PT Coag (PPP) [Time] 33.3 s High 12.3-14.8 [facility] Comment on above: Order Comment: No: D o not add to previous draw Result Comment: ALL RESULTS MUST BE INTERPRETED WITH RESPECT TO BLOOD DRAWING ARTIFACT OR DILUTION ERROR OF ANTICOAGULANT AT THE TIME OF SAMPLING. Performed By: #### 5 3629, 66943, 69167 #### [facility] [address] [place] [address], [facility] TROPONIN-Ion 07-26-2020 Troponin I.cardiac [Mass/Vol] 0.01 ng/mL Normal 0.00-0.04 [facility] Comment on above: Order Comment: No: D o not add to previous draw Result Comment: REFE RENCE RANGES: 0.00 - 0.04 ng/ml NORMAL 0.05 - 0.50 ng/ml INDETERMINATE > 0.50 ng/ml CONSISTENT WITH AN M.I. Performed By: #### 5 3629, 76985, 10534 #### [facility] [address] Vital Signs Date Time Vital Sign Value Performing Clinician Facility 02-15-2024 08:46-0400 Body height 149.86 cm DO Chester Ball Work Phone: [facility] 02-15-2024 08:46-0400 Body mass index (BMI) [Ratio] 30.9 kg/m2 DO Chester Ball Work Phone: [facility] 02-15-2024 08:46-0400 Body weight 69.45 kg DO Chester Ball Work Phone: [facility] 02-15-2024 08:46-0400 Diastolic blood pressure 89 mm[Hg] DO Chester Ball Work Phone: [facility] 02-15-2024 08:46-0400 Heart rate 97 /min DO Chester Ball Work Phone: [facility] 02-15-2024 08:46-0400 Respiratory rate 20 /min DO Chester Ball Work Phone: [facility] 02-15-2024 08:46-0400 SaO2% (BldA) [Mass fraction] 96 % DO Chester Ball Work Phone: [facility] 02-15-2024 08:46-0400 Systolic blood pressure 139 mm[Hg] DO Chester Ball Work Phone: [facility] 01-28-2024 15:25-0400 Body height 149.86 cm DO Chester Ball Work Phone: [facility] 01-28-2024 15:25-0400 Body mass index (BMI) [Ratio] 31.4 kg/m2 DO Chester Ball Work Phone: [facility] 01-28-2024 15:25-0400 Body weight 70.47 kg DO Chester Ball Work Phone: [facility] 01-28-2024 15:25-0400 Diastolic blood pressure 79 mm[Hg] DO Chester Ball Work Phone: [facility] 01-28-2024 15:25-0400 Heart rate 72 /min DO Chester Ball Work Phone: [facility] 01-28-2024 15:25-0400 Respiratory rate 20 /min DO Chester Ball Work Phone: [facility] 01-28-2024 15:25-0400 Systolic blood pressure 137 mm[Hg] DO Chester Ball Work Phone: [facility] 01-22-2024 12:46-0400 Body height 149.9 cm [facility] 01-22-2024 12:46-0400 Body mass index (BMI) [Ratio] 30.9 kg/m2 [facility] 01-22-2024 12:46-0400 Body weight 69.4 kg [facility] 01-22-2024 12:46-0400 Diastolic blood pressure 94 mm[Hg] [facility] 01-22-2024 12:46-0400 Heart rate 71 /min [facility] 01-22-2024 12:46-0400 Systolic blood pressure 134 mm[Hg] [facility] 01-20-2024 12:00-0400 Diastolic blood pressure 86 mm[Hg] DO Chester Ball Work Phone: [facility] 01-20-2024 12:00-0400 Heart rate 78 /min DO Chester Ball Work Phone: [facility] 01-20-2024 12:00-0400 Respiratory rate 18 /min DO Chester Ball Work Phone: [facility] 01-20-2024 12:00-0400 SaO2% (BldA) [Mass fraction] 96 % DO Chester Ball Work Phone: [facility] 01-20-2024 12:00-0400 Systolic blood pressure 128 mm[Hg] DO Chester Ball Work Phone: [facility] 01-20-2024 09:23-0400 Body temperature 97.9 [degF] DO Chester Ball Work Phone: [facility] 01-20-2024 06:00-0400 Body weight 70 kg DO Chester Ball Work Phone: [facility] 01-18-2024 21:55-0400 Body height 149.86 cm DO Chester Ball Work Phone: [facility] 01-18-2024 21:00-0400 Diastolic blood pressure 97 mm[Hg] DO Chester Ball Work Phone: [facility] 01-18-2024 21:00-0400 Heart rate 118 /min DO Chester Ball Work Phone: [facility] 01-18-2024 21:00-0400 Respiratory rate 18 /min DO Chester Ball Work Phone: [facility] 01-18-2024 21:00-0400 SaO2% (BldA) [Mass fraction] 95 % DO Chester Ball Work Phone: [facility] 01-18-2024 21:00-0400 Systolic blood pressure 138 mm[Hg] DO Chester Ball Work Phone: [facility] 01-18-2024 15:05-0400 Body height 149.86 cm DO Chester Ball Work Phone: [facility] 01-18-2024 15:05-0400 Body temperature 97.8 [degF] DO Chester Ball Work Phone: [facility] 01-18-2024 [id number] Body weight 69.9 kg DO Chester Ball Work Phone: [facility] 11-27-2023 15:07-0400 Body height 160.02 cm DO Chester Ball Work Phone: [facility] 11-27-2023 15:07-0400 Body mass index (BMI) [Ratio] 29.1 kg/m2 DO Chester Ball Work Phone: [facility] 11-27-2023 15:[id number] Body weight 74.61 kg DO Chester Ball Work Phone: [facility] 11-27-2023 15:07-0400 Diastolic blood pressure 83 mm[Hg] DO Chester Ball Work Phone: [facility] 11-27-2023 15:07-0400 Heart rate 116 /min DO Chester Ball Work Phone: [facility] 11-27-2023 15:07-0400 Respiratory rate 12 /min DO Chester Ball Work Phone: [facility] 11-27-2023 15:07-0400 Systolic blood pressure 135 mm[Hg] DO Chester Ball Work Phone: [facility] 09-19-2023 13:07-0500 Body height 149.9 cm Debbie Mac MD Work Phone: [facility] 09-19-2023 13:07-0500 Body mass index (BMI) [Ratio] 33.2 kg/m2 Debbie Mac MD Work Phone: [facility] 09-19-2023 13:07-0500 Body weight 74.57 kg Debbie Mac MD Work Phone: [facility] 09-19-2023 13:07-0500 Diastolic blood pressure 92 mm[Hg] Debbie Mac MD Work Phone: [facility] 09-19-2023 13:07-0500 Heart rate 91 /min Debbie Mac MD Work Phone: [facility] 09-19-2023 13:07-0500 Systolic blood pressure 126 mm[Hg] Debbie Mac MD Work Phone: [facility] 08-21-2023 13:27-0500 Body height 149.[address] 08-21-2023 13:27-0500 Body mass index (BMI) [Ratio] 33.33 kg/m2 [address] 08-21-2023 13:27-0500 Body weight 74.[address] 08-21-2023 13:27-0500 Diastolic blood pressure 64 mm[Hg] [address] 08-21-2023 13:27-0500 Systolic blood pressure 116 mm[Hg] [address] 08-19-2023 12:15-0500 Body height 160.02 cm Sabina Garcia Other [employer] Other 05-31-2023 15:24-0400 Body height 149.9 cm Debbie Mac MD Work Phone: [facility] 05-31-2023 15:24-0400 Body mass index (BMI) [Ratio] 33.33 kg/m2 Debbie Mac MD Work Phone: [facility] 05-31-2023 15:24-0400 Body weight 74.84 kg Debbie Mac MD Work Phone: [facility] 05-31-2023 15:24-0400 Diastolic blood pressure 64 mm[Hg] Debbie Mac MD Work Phone: [facility] 05-31-2023 15:24-0400 Heart rate 70 /min Debbie Mac MD Work Phone: [facility] 05-31-2023 15:24-0400 Systolic blood pressure 122 mm[Hg] Debbie Mac MD Work Phone: [facility] 03-21-2023 15:00-0400 Body height 160.02 cm Chester Ball Other [employer] Other 03-21-2023 15:00-0400 Body mass index (BMI) [Ratio] 28.62 kg/m2 Chester Ball Other [employer] [facility] [employer] Other 03-21-2023 15:00-0400 Body weight 73.3 kg Chester Ball Other [employer] [facility] [employer] Other 03-21-2023 15:00-0400 Diastolic blood pressure 79 mm[Hg] Chester Ball Other [employer] Other 03-21-2023 15:00-0400 Respiratory rate 12 /min Chester Ball Other [employer] Other 03-21-2023 15:00-0400 Systolic blood pressure 124 mm[Hg] Chester Ball Other [employer] Other 03-05-2023 14:42-0400 Diastolic blood pressure 76 mm[Hg] DO Chester Ball Work Phone: [facility] 03-05-2023 14:42-0400 Heart rate 92 /min DO Chester Ball Work Phone: [facility] 03-05-2023 14:42-0400 Inhaled oxygen flow rate 3 L/min DO Chester Ball Work Phone: [facility] 03-05-2023 14:42-0400 Respiratory rate 16 /min DO Chester Ball Work Phone: [facility] 03-05-2023 14:42-0400 SaO2% (BldA) [Mass fraction] 93 % DO Chesetr Ball Work Phone: [facility] 03-05-2023 14:42-0400 Systolic blood pressure 129 mm[Hg] DO Chester Ball Work Phone: [facility] 03-05-2023 13:48-0400 Body temperature 97 [degF] DO Chester Ball Work Phone: [facility] 03-05-2023 09:23-0400 Body height 149.86 cm DO Chester Ball Work Phone: [facility] 03-05-2023 09:23-0400 Body weight 73 kg DO Chester Ball Work Phone: [facility] 01-25-2023 13:09-0400 Body height 149.86 cm Chester E Ball Work Phone: [facility] Work Phone: 01-25-2023 13:09-0400 Body mass index (BMI) [Ratio] 32.52 kg/m2 Chester E Ball Work Phone: [facility] Work Phone: 01-25-2023 13:09-0400 Body surface area Derived from formula 1.68 m2 Cehster E Ball Work Phone: [facility] Work Phone: 01-25-2023 13:09-0400 Body weight 73.03 kg Chester E Ball Work Phone: [facility] Work Phone: 01-25-2023 13:09-0400 Diastolic blood pressure 78 mm[Hg] Chester E Ball Work Phone: [facility] Work Phone: 01-25-2023 13:09-0400 Heart rate 72 /min Chester E Ball Work Phone: [facility] Work Phone: 01-25-2023 13:09-0400 Systolic blood pressure 126 mm[Hg] Chester E Ball Work Phone: [facility] Work Phone: 01-09-2023 17:07-0400 Diastolic blood pressure 98 mm[Hg] DO Chester Ball Work Phone: [facility] 01-09-2023 17:07-0400 Heart rate 70 /min DO Chester Ball Work Phone: [facility] 01-09-2023 17:07-0400 Respiratory rate 14 /min DO Chester Ball Work Phone: [facility] 01-09-2023 17:07-0400 SaO2% (BldA) [Mass fraction] 95 % DO Chester Ball Work Phone: [facility] 01-09-2023 17:07-0400 Systolic blood pressure 130 mm[Hg] DO Chester Ball Work Phone: [facility] 01-09-2023 10:54-0400 Body height 149.86 cm DO Chester Ball Work Phone: [facility] 01-09-2023 10:54-0400 Body temperature 98.6 [degF] DO Chester Ball Work Phone: [facility] 01-09-2023 10:54-0400 Body weight 73.2 kg DO Chester Ball Work Phone: [facility] 01-04-2023 14:23-0400 Body height 149.86 cm Chester E Ball Work Phone: [facility] Work Phone: 01-04-2023 14:23-0400 Body mass index (BMI) [Ratio] 32.52 kg/m2 Chester E Ball Work Phone: [facility] Work Phone: 01-04-2023 14:23-0400 Body surface area Derived from formula 1.68 m2 Chester E Ball Work Phone: [facility] Work Phone: 01-04-2023 14:23-0400 Body weight 73.03 kg Chester E Ball Work Phone: [facility] Work Phone: 01-04-2023 14:23-0400 Diastolic blood pressure 88 mm[Hg] Chester E Ball Work Phone: [facility] Work Phone: 01-04-2023 14:23-0400 Heart rate 76 /min Chester E Ball Work Phone: [facility] Work Phone: 01-04-2023 14:23-0400 Systolic blood pressure 128 mm[Hg] Chester E Ball Work Phone: [facility] Work Phone: 01-03-2023 14:05-0400 Body height 149.86 cm Chester E Ball Work Phone: [facility] Work Phone: 01-03-2023 14:05-0400 Body mass index (BMI) [Ratio] 33.12 kg/m2 Chester E Ball Work Phone: [facility] Work Phone: 01-03-2023 14:05-0400 Body surface area Derived from formula 1.69 m2 Chester E Ball Work Phone: [facility] Work Phone: 01-03-2023 14:05-0400 Body weight 74.39 kg Chester E Ball Work Phone: [facility] Work Phone: 01-03-2023 14:05-0400 Diastolic blood pressure 62 mm[Hg] Chester E Ball Work Phone: [facility] Work Phone: 01-03-2023 14:05-0400 Heart rate 70 /min Chester E Ball Work Phone: [facility] Work Phone: 01-03-2023 14:05-0400 Systolic blood pressure 118 mm[Hg] Chester E Ball Work Phone: [facility] Work Phone: 12-25-2022 13:41-0400 Diastolic blood pressure 84 mm[Hg] Chester E Ball Work Phone: [facility] Work Phone: 12-25-2022 13:41-0400 Heart rate 107 /min Chester E Ball Work Phone: [facility] Work Phone: 12-25-2022 13:41-0400 Respiratory rate 16 /min Chester E Ball Work Phone: [facility] Work Phone: 12-25-2022 13:41-0400 SaO2% (BldA) [Mass fraction] 96 % Chester E Ball Work Phone: [facility] Work Phone: 12-25-2022 13:41-0400 Systolic blood pressure 132 mm[Hg] Chester E Ball Work Phone: [facility] Work Phone: 11-27-2022 09:24-0400 Body height 149.86 cm DO Chester Ball Work Phone: [facility] 11-27-2022 09:24-0400 Body temperature 98 [degF] DO Chester Ball Work Phone: [facility] 11-27-2022 09:24-0400 Body weight 73 kg DO Chester Ball Work Phone: [facility] 11-27-2022 09:24-0400 Diastolic blood pressure 82 mm[Hg] DO Chester Ball Work Phone: [facility] 11-27-2022 09:24-0400 Heart rate 105 /min DO Chester Ball Work Phone: [facility] 11-27-2022 09:24-0400 Respiratory rate 18 /min DO Chester Ball Work Phone: [facility] 11-27-2022 09:24-0400 SaO2% (BldA) [Mass fraction] 97 % DO Chester Ball Work Phone: [facility] 11-27-2022 09:24-0400 Systolic blood pressure 136 mm[Hg] DO Chester Ball Work Phone: [facility] 10-24-2022 14:30-0500 Body height 160.02 cm Rachel Larios Other [facility] [employer] Other 10-24-2022 14:30-0500 Body mass index (BMI) [Ratio] 28.16 kg/m2 Rachel Larios Other [facility] [employer] Other 10-24-2022 14:30-0500 Body weight 72.12 kg Rachel Larios Other [facility] [employer] Other 10-24-2022 14:30-0500 Diastolic blood pressure 98 mm[Hg] Rachel Larios Other [facility] [employer] Other 10-24-2022 14:30-0500 SaO2% (BldA) [Mass fraction] 97 % Rachel Larios Other [facility] [employer] Other 10-24-2022 14:30-0500 Systolic blood pressure 152 mm[Hg] Rachel Larios Other [facility] Other 10-13-2022 10:48-0500 Body height 149.86 cm Chester Hahn Ball Work Phone: [email or web address] 250 DO Work Phone: 10-13-2022 10:48-0500 Body mass index (BMI) [Ratio] 32.11 kg/m2 Chester E Ball Work Phone: [employer] [employer] DO Work Phone: 10-13-2022 10:48-0500 Body surface area Derived from formula 1.67 m2 Hcester E Ball Work Phone: [facility] DO Work Phone: 10-13-2022 10:48-0500 Body weight 72.12 kg Chester E Ball Work Phone: [facility] 250 DO Work Phone: 10-13-2022 10:48-0500 Diastolic blood pressure 66 mm[Hg] Chester E Ball Work Phone: [facility] 250 DO Work Phone: 10-13-2022 10:48-0500 Heart rate 72 /min Chester E Ball Work Phone: [facility] 250 DO Work Phone: 10-13-2022 10:48-0500 Systolic blood pressure 98 mm[Hg] Chester E Ball Work Phone: [facility] 250 DO Work Phone: 09-27-2022 13:36-0500 Body height 149.86 cm Chester E Ball Work Phone: [facility] 250 DO Work Phone: 09-27-2022 13:36-0500 Body mass index (BMI) [Ratio] 31.91 kg/m2 Chester E Ball Work Phone: [facility] 250 DO Work Phone: 09-27-2022 13:36-0500 Body surface area Derived from formula 1.67 m2 Chester E Ball Work Phone: [facility] 250 DO Work Phone: 09-27-2022 13:36-0500 Body weight 71.67 kg Chester E Ball Work Phone: [facility] 250 DO Work Phone: 09-27-2022 13:36-0500 Diastolic blood pressure 86 mm[Hg] Chester E Ball Work Phone: [facility] 250 DO Work Phone: 09-27-2022 13:36-0500 Heart rate 70 /min Chester E Ball Work Phone: [facility] 250 DO Work Phone: 09-27-2022 13:36-0500 Systolic blood pressure 122 mm[Hg] Chester E Ball Work Phone: [facility] 250 DO Work Phone: 09-21-2022 16:34-0500 Body temperature 97.8 [degF] DO Chester Ball Work Phone: [facility] 09-21-2022 16:34-0500 Diastolic blood pressure 77 mm[Hg] DO Chester Ball Work Phone: [facility] 09-21-2022 16:34-0500 Heart rate 68 /min DO Chester Ball Work Phone: [facility] 09-21-2022 16:34-0500 Respiratory rate 18 /min DO Chester Ball Work Phone: [facility] 09-21-2022 16:34-0500 SaO2% (BldA) [Mass fraction] 96 % DO Chester Ball Work Phone: [facility] 09-21-2022 16:34-0500 Systolic blood pressure 134 mm[Hg] DO Chester Ball Work Phone: [facility] 09-21-2022 06:00-0500 Body weight 73.2 kg DO Chester Ball Work Phone: [facility] 09-17-2022 15:30-0500 Diastolic blood pressure 81 mm[Hg] DO Chester Ball Work Phone: [facility] 09-17-2022 15:30-0500 Heart rate 75 /min DO Chester Ball Work Phone: [facility] 09-17-2022 15:30-0500 Respiratory rate 16 /min DO Chester Ball Work Phone: [facility] 09-17-2022 15:30-0500 SaO2% (BldA) [Mass fraction] 96 % DO Chester Ball Work Phone: [facility] 09-17-2022 15:30-0500 Systolic blood pressure 139 mm[Hg] DO Chester Ball Work Phone: [facility] 09-17-2022 14:00-0500 Body height 149.86 cm DO Chester Ball Work Phone: [facility] 09-17-2022 14:00-0500 Body weight 72.1 kg DO Chester Ball Work Phone: [facility] 09-17-2022 13:00-0500 Body temperature 97.8 [degF] DO Chester Ball Work Phone: [facility] 09-12-2022 16:00-0500 Body height 160.02 cm Chester Ball Other [facility] [employer] Other 09-12-2022 16:00-0500 Body mass index (BMI) [Ratio] 28.02 kg/m2 Chester Ball Other [facility] [employer] Other 09-12-2022 16:00-0500 Body weight 71.76 kg Chester Ball Other [employer] Other 09-12-2022 16:00-0500 Diastolic blood pressure 76 mm[Hg] Chester Ball Other [employer] Other 09-12-2022 16:00-0500 Respiratory rate 12 /min Chester Ball Other [employer] Other 09-12-2022 16:00-0500 SaO2% (BldA) [Mass fraction] 97 % Chester Ball Other [employer] Other 09-12-2022 16:00-0500 Systolic blood pressure 132 mm[Hg] Chester Ball Other [facility] [employer] Other 09-06-2022 07:32-0500 Body temperature 97 [degF] DO Chester Ball Work Phone: [facility] 09-06-2022 07:32-0500 Diastolic blood pressure 83 mm[Hg] DO Chestre Ball Work Phone: [facility] 09-06-2022 07:32-0500 Heart rate 92 /min DO Chester Ball Work Phone: [facility] 09-06-2022 07:32-0500 Respiratory rate 18 /min DO Chester Ball Work Phone: [facility] 09-06-2022 07:32-0500 SaO2% (BldA) [Mass fraction] 94 % DO Chester Ball Work Phone: [facility] 09-06-2022 07:32-0500 Systolic blood pressure 141 mm[Hg] DO Chester Ball Work Phone: [facility] 09-06-2022 06:00-0500 Body weight 70.1 kg DO Chester Ball Work Phone: [facility] 09-04-2022 14:04-0500 Body height 149.86 cm DO Chester Ball Work Phone: [facility] 09-04-2022 12:21-0500 40 1 Chester E Ball Work Phone: [facility] 250 DO Work Phone: Comment on above: [id number] 09-01-2022 22:47-0500 Diastolic blood pressure 85 mm[Hg] DO Chester Ball Work Phone: [facility] 09-01-2022 22:47-0500 Heart rate 98 /min DO Chester Ball Work Phone: [facility] 09-01-2022 22:47-0500 Systolic blood pressure 151 mm[Hg] DO Chester Ball Work Phone: [facility] 09-01-2022 22:30-0500 Respiratory rate 26 /min DO Chester Ball Work Phone: [facility] 09-01-2022 22:30-0500 SaO2% (BldA) [Mass fraction] 98 % DO Chester Ball Work Phone: [facility] 09-01-2022 12:07-0500 Body height 149.86 cm DO Chester Ball Work Phone: [facility] 09-01-2022 12:07-0500 Body temperature 98.3 [degF] DO Chester Ball Work Phone: [facility] 09-01-2022 12:07-0500 Body weight 73 kg DO Chester Ball Work Phone: [facility] 08-24-2022 10:03-0500 Body height 149.86 cm Chester Hahn Ball Work Phone: [facility] [employer] 250 DO Work Phone: 08-24-2022 10:03-0500 Body mass index (BMI) [Ratio] 32.92 kg/m2 Chester E Ball Work Phone: [facility] [employer] 250 DO Work Phone: 08-24-2022 10:03-0500 Body surface area Derived from formula 1.69 m2 Chester E Ball Work Phone: [facility] [employer] 250 DO Work Phone: 08-24-2022 10:03-0500 Body weight 73.94 kg Chester E Ball Work Phone: [facility] 250 DO Work Phone: 08-24-2022 10:03-0500 Diastolic blood pressure 98 mm[Hg] Chester E Ball Work Phone: [facility] [employer] 250 DO Work Phone: 08-24-2022 10:03-0500 Heart rate 112 /min Chester E Ball Work Phone: [facility] 250 DO Work Phone: 08-24-2022 10:03-0500 Systolic blood pressure 132 mm[Hg] Chester E Ball Work Phone: [facility] 250 DO Work Phone: 06-26-2022 14:26-0500 Body height 149.86 cm Chester Hahn Ball Work Phone: [facility] 250 DO Work Phone: 06-26-2022 14:26-0500 Body mass index (BMI) [Ratio] 32.92 kg/m2 Chester E Ball Work Phone: [facility] 250 DO Work Phone: 06-26-2022 14:26-0500 Body surface area Derived from formula 1.69 m2 Chester Hahn Ball Work Phone: [facility] 250 DO Work Phone: 06-26-2022 14:26-0500 Body weight 73.94 kg Chester Hahn Ball Work Phone: [facility] 250 DO Work Phone: 06-26-2022 14:26-0500 Diastolic blood pressure 70 mm[Hg] Chester Hahn Ball Work Phone: [facility] 250 DO Work Phone: 06-26-2022 14:26-0500 Heart rate 71 /min Chester Hahn Ball Work Phone: [facility] 250 DO Work Phone: 06-26-2022 14:26-0500 Systolic blood pressure 132 mm[Hg] Chester E Ball Work Phone: [facility] 250 DO Work Phone: 04-27-2022 14:30-0400 Body height 160.02 cm John Mims Other [facility] Other 04-27-2022 14:30-0400 Body mass index (BMI) [Ratio] 27.45 kg/m2 John Mims Other [facility] [employer] Other 04-27-2022 14:30-0400 Body weight 70.31 kg John Mims Other [facility] [employer] Other 03-10-2022 10:53-0400 Diastolic blood pressure 82 mm[Hg] Chester Hahn Ball Work Phone: [employer] DO Work Phone: 03-10-2022 10:53-0400 Systolic blood pressure 126 mm[Hg] Chester E Ball Work Phone: [facility] [employer] DO Work Phone: 03-10-2022 10:19-0400 Body height 149.86 cm Chester E Ball Work Phone: [employer] DO Work Phone: 03-10-2022 10:19-0400 Body mass index (BMI) [Ratio] 31.91 kg/m2 Chester E Ball Work Phone: [facility] [employer] DO Work Phone: 03-10-2022 10:19-0400 Body surface area Derived from formula 1.67 m2 Chester E Ball Work Phone: [email or web address] 250 DO Work Phone: 03-10-2022 10:19-0400 Body weight 71.67 kg Chester E Ball Work Phone: [facility] [employer] DO Work Phone: 03-10-2022 10:19-0400 Diastolic blood pressure 80 mm[Hg] Chester E Ball Work Phone: [facility] [employer] 250 DO Work Phone: 03-10-2022 10:19-0400 Heart rate 78 /min Chester E Ball Work Phone: [facility] [employer] 250 DO Work Phone: 03-10-2022 10:19-0400 Systolic blood pressure 146 mm[Hg] Chester E Ball Work Phone: [facility] [employer] 250 DO Work Phone: 02-28-2022 15:45-0400 Body height 160.02 cm John Felicita Other [facility] [employer] Other 02-28-2022 15:45-0400 Body mass index (BMI) [Ratio] 27.45 kg/m2 John Felicita Other [facility] [employer] Other 02-28-2022 15:45-0400 Body weight 70.31 kg John Felicita Other [facility] [employer] Other 02-28-2022 15:32-0400 Body weight 0 kg DO Chester Ball Work Phone: [facility] 12-15-2021 08:46-0400 Body weight 0 kg DO Chester Ball Work Phone: [facility] 10-19-2021 16:04-0500 Body height 149.86 cm Chester E Ball Work Phone: [facility] [employer] 250 DO Work Phone: 10-19-2021 16:04-0500 Body mass index (BMI) [Ratio] 29.13 kg/m2 Chester E Ball Work Phone: [facility] [employer] 250 DO Work Phone: 10-19-2021 16:04-0500 Body surface area Derived from formula 1.6 m2 Chester E Ball Work Phone: [facility] 250 DO Work Phone: 10-19-2021 16:04-0500 Body weight 65.41 kg Chester E Ball Work Phone: [facility] 250 DO Work Phone: 10-19-2021 16:04-0500 Diastolic blood pressure 76 mm[Hg] Chester E Ball Work Phone: [facility] 250 DO Work Phone: 10-19-2021 16:04-0500 Heart rate 70 /min Chester E Ball Work Phone: [facility] 250 DO Work Phone: 10-19-2021 16:04-0500 Systolic blood pressure 110 mm[Hg] Chester Hahn Ball Work Phone: [facility] 250 DO Work Phone: 07-26-2021 14:31-0500 Body height 149.86 cm Chester Hahn Ball Work Phone: [facility] 250 DO Work Phone: 07-26-2021 14:31-0500 Body mass index (BMI) [Ratio] 29.49 kg/m2 Chester Hahn Ball Work Phone: [facility] 250 DO Work Phone: 07-26-2021 14:31-0500 Body surface area Derived from formula 1.61 m2 Chester E Ball Work Phone: [facility] 250 DO Work Phone: 07-26-2021 14:31-0500 Body weight 66.23 kg Chester E Ball Work Phone: [facility] 250 DO Work Phone: 07-26-2021 14:31-0500 Diastolic blood pressure 80 mm[Hg] Chester Hahn Ball Work Phone: [facility] [employer] 250 DO Work Phone: 07-26-2021 14:31-0500 Heart rate 70 /min Chester E Ball Work Phone: [facility] 250 DO Work Phone: 07-26-2021 14:31-0500 Systolic blood pressure 124 mm[Hg] Chester E Ball Work Phone: [facility] [employer] 250 DO Work Phone: 07-06-2021 15:54-0500 Body height 149.86 cm Chester E Ball Work Phone: [facility] [employer] 250 DO Work Phone: 07-06-2021 15:54-0500 Body mass index (BMI) [Ratio] 28.48 kg/m2 Chester Hahn Ball Work Phone: [facility] [employer] 250 DO Work Phone: 07-06-2021 15:54-0500 Body surface area Derived from formula 1.59 m2 Chester E Ball Work Phone: [facility] [employer] 250 DO Work Phone: 07-06-2021 15:54-0500 Body temperature 97.2 [degF] Chester Hahn Ball Work Phone: [facility] [employer] 250 DO Work Phone: 07-06-2021 15:54-0500 Body weight 63.96 kg Chester E Ball Work Phone: [facility] [employer] 250 DO Work Phone: 07-06-2021 15:54-0500 Diastolic blood pressure 49 mm[Hg] Chester E Ball Work Phone: [facility] [employer] 250 DO Work Phone: 07-06-2021 15:54-0500 Heart rate 73 /min Chester E Ball Work Phone: [facility] 250 DO Work Phone: 07-06-2021 15:54-0500 Systolic blood pressure 95 mm[Hg] Chester E Ball Work Phone: [facility] 250 DO Work Phone: 06-30-2021 00:00-0500 0 1 Chester E Ball Work Phone: [facility] 250 DO Work Phone: Comment on above: [id number] 06-06-2021 15:33-0400 Body height 152.4 cm Chester E Ball Work Phone: [facility] 250 DO Work Phone: 06-06-2021 15:33-0400 Body mass index (BMI) [Ratio] 28.12 kg/m2 Chester E Ball Work Phone: [facility] 250 DO Work Phone: 06-06-2021 15:33-0400 Body surface area Derived from formula 1.62 m2 Chester E Ball Work Phone: [facility] 250 DO Work Phone: 06-06-2021 15:33-0400 Body weight 65.32 kg Chester E Ball Work Phone: [facility] 250 DO Work Phone: 06-06-2021 15:33-0400 Diastolic blood pressure 64 mm[Hg] Chester E Ball Work Phone: [facility] 250 DO Work Phone: 06-06-2021 15:33-0400 Heart rate 110 /min Chester E Ball Work Phone: [facility] 250 DO Work Phone: 06-06-2021 15:33-7970 Systolic blood pressure 88 mm[Hg] Chester Hahn Ball Work Phone: [facility] 250 DO Work Phone: Encounters Encounter Date Encounter Type Care Provider Facility Start: 03-17-2024 End: 03-17-2024 ambulatory [facility] Ambulatory Start: 02-28-2024 End: 02-28-2024 ambulatory [facility] Ambulatory Start: 02-25-2024 End: 02-25-[address] [facility] Ambulatory Start: 02-18-2024 End: 02-18-2024 Patient encounter procedure DO Chester Ball Work Phone: [facility]-CT Scan [facility] [place] Work Phone: Start: 02-18-2024 End: 02-18-2024 ambulatory DO Chester Ball Work Phone: [facility] Work Phone: Start: 02-15-2024 End: 02-15-2024 ambulatory DO Chester Ball Work Phone: [facility] Work Phone: Start: 02-15-2024 End: 02-15-2024 Patient encounter procedure DO Chester Ball Work Phone: [facility] Physician [facility] Work Phone: Start: 02-08-2024 Non-patient / Non-visit DO Johnson persaud Ball Work Phone: [facility] Physician [facility] Work Phone: Start: 02-07-2024 Non-patient / Non-visit DO Johnson cori Ball Work Phone: [facility] Physician [facility] Work Phone: Start: 01-28-2024 End: 01-28-2024 ambulatory DO Chester Ball Work Phone: [facility] Work Phone: Start: 01-28-2024 End: 01-28-2024 Patient encounter procedure DO Chester العلي Work Phone: [facility] Work Phone: Start: 01-28-2024 End: 01-28-2024 ambulatory Yesica Astudillo MD Facility:[facility] Start: 01-22-2024 End: 01-22-[address] [facility] Ambulatory Start: 01-22-2024 End: 01-22-2024 Professional / ancillary services management Chanell Bartlett Cardiology Ecg/Holter [facility] Start: 01-21-2024 Non-patient / Non-visit DO Johnson cori العلي Work Phone: [facility] Physician [facility] Work Phone: Start: 01-18-2024 End: 01-20-2024 Evaluation and management of inpatient DO Chester العلي Work Phone: [facility] [place] [facility] Work Phone: Start: 01-15-2024 End: 01-15-2024 ambulatory DESMOND EUGENIOM Not Available Start: 12-17-2023 End: 12-17-2023 ambulatory Yesica Astudillo MD Facility: [facility] Start: 11-28-2023 End: 11-28-[address] [facility] Ambulatory Start: 11-27-2023 End: 11-27-2023 ambulatory DO Chester العلي Work Phone: [facility] Work Phone: Start: 11-27-2023 End: 11-27-2023 Patient encounter procedure DO Chester العلي Work Phone: [facility] Physician [facility] Work Phone: Start: 11-22-2023 End: 11-22-2023 Patient encounter procedure DO Chester العلي Work Phone: [facility]-Pacemaker Check Start: 11-22-2023 End: 11-22-2023 ambulatory DO Chester Ball Work Phone: [facility] Work Phone: Start: 11-21-2023 End: 11-21-2023 Patient encounter procedure DO Chester Ball Work Phone: [facility]-MRI Main [place] Work Phone: Start: 11-21-2023 End: 11-21-2023 ambulatory DO Chester Ball Work Phone: [facility] Work Phone: Start: 10-15-2023 End: 10-15-2023 ambulatory Yesica Astudillo MD Facility: [facility] Start: 09-24-2023 End: 09-24-2023 Patient encounter procedure DO Chester Ball Work Phone: [facility]-Pacemaker Check Start: 09-24-2023 End: 09-24-2023 ambulatory DO Chester Ball Work Phone: [facility] Work Phone: Start: 09-19-2023 End: 09-19-2023 Office outpatient visit 25 minutes Debbie Mac MD Work Phone: [facility] Comment on above: Persistent atrial fi brillation (CMS/HCC) (Primary Dx); 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); Chronic diastolic heart failure (CMS/HCC); Essential hypertension, benign; Mixed hyperlipidemia; Pacemaker; Sinus bradycardia; Single vessel coronary artery disease Start: 09-19-2023 End: 09-19-[facility] Start: 2023 End: 2023 Patient encounter procedure DO Chester Ball Work Phone: [facility]-Pacemaker Check Start: 2023 End: 2023 ambulatory DO Chester Ball Work Phone: [facility] Work Phone: Start: 08-24-2023 End: 08-24-2023 ambulatory Chester العلي Other [employer] Other Start: 08-24-2023 Telephone encounter Chester العلي [facility] Start: 08-21-2023 End: 08-22-2023 ambulatory [facility] Start: 08-21-2023 End: 08-21-2023 Subsequent hospital visit by physician Chanell Bartlett Echo/Vasc Room 2 [facility] Comment on above: Chronic diastolic he art failure (CMS/HCC); Essential hypertension, benign; Dyspnea, unspecified type Start: 08-19-2023 End: 08-19-2023 ambulatory Sabina Garcia Other [employer] Other Start: 08-19-2023 Patient encounter procedure Sabina Garcia [facility] Urgent [facility] Start: 08-19-2023 End: 08-19-2023 Patient encounter procedure DO Chester العلي Work Phone: [facility] Work Phone: Start: 07-25-2023 End: 07-25-2023 Patient encounter procedure DO Chester العلي Work Phone: [facility] Work Phone: Start: 06-29-2023 End: 06-29-2023 ambulatory Chester العلي Other [employer] Other Start: 06-29-2023 Nursing evaluation o f patient and report Chester العلي [facility] Start: 06-15-2023 End: 06-15-2023 ambulatory [facility] Facility:[facility] Start: 05-31-2023 End: 05-31-[address] [facility] Ambulatory Start: 05-31-2023 End: 05-31-2023 Office outpatient visit 25 minutes Debbie Mac MD Work Phone: [facility] Comment on above: Persistent atrial fi brillation (CMS/HCC) (Primary Dx); 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 ([facility]/HCC); Chronic diastolic heart failure ([facility]); Essential hypertension, benign; Hyperlipidemia, unspecified hyperlipidemia type; Pacemaker; Sinus bradycardia; Anticoagulated; Class 1 obesity due to excess calories without serious comorbidity with body mass index (BMI) of 32.0 to 32.9 in adult; Stage 3a chronic kidney disease ([facility]); Dyspnea, unspecified type Start: 05-25-2023 End: 05-25-2023 ambulatory Chester العلي Other [employer] Other Start: 05-25-2023 Telephone encounter Chester العلي [facility] Start: 04-20-2023 Rx Renewal Chester rosen Work Phone: [facility] 250 DO Work Phone: Start: 04-18-2023 Rx Renewal Chester rosen Work Phone: [facility] 250 DO Work Phone: Start: 04-12-2023 End: 04-12-2023 ambulatory Chester العلي Other [employer] Other Start: 04-12-2023 Telephone encounter Chester Joseph [facility] Start: 04-10-2023 End: 04-10-2023 ambulatory Chester العلي Other [employer] Other Start: 04-10-2023 Telephone encounter Chester العلي [facility] Start: 03-21-2023 End: 03-21-2023 ambulatory Chester العلي Other [employer] Other Start: 03-21-2023 Patient encounter procedure Chester العلي [facility] Start: 03-13-2023 End: 03-13-2023 ambulatory Chester العلي Other [employer] Other Start: 03-13-2023 Telephone encounter Chester العلي [facility] Start: 03-05-2023 Telephone encounter Chester العلي [facility] Start: 03-05-2023 End: 03-05-2023 Admission to same day surgery center DO Chester Tyson Work Phone: [facility] [place] Start: 03-05-2023 End: 03-05-[address] Chester العلي [facility] Work Phone: Start: 02-26-2023 End: 02-26-2023 ambulatory DO Chester Tyson Work Phone: [facility] Work Phone: Start: 02-26-2023 End: 02-26-2023 Patient encounter procedure DO Chester العلي Work Phone: [facility]-Pre-Surgical Testing Work Phone: Start: 02-26-2023 Rx Renewal Chester Moyer l Work Phone: [facility] 250 DO Work Phone: Start: 01-25-[address] Chester العلي Facility: Start: 01-25-2023 Office outpatient vi sit 25 minutes Chester العلي Work Phone: [facility] Work Phone: Start: 01-09-[address] Chester العلي Facility:[id number] Start: 01-09-2023 End: 01-09-2023 Admission to same day surgery center DO Chester العلي Work Phone: [facility]-[employer] Work Phone: Start: 01-04-[address] Debbie Mac Facility: Start: 01-03-2023 End: 01-04-[address] CHESTER العلي Facility:H1 Start: 01-03-[address] Debbie Mac Facility: Start: 01-02-2023 End: 01-03-[address] CHESTER العلي Facility:H1 Start: 12-25-2022 Office outpatient ne w 45 minutes Chester العلي Work Phone: [facility] Work Phone: Start: 12-25-[address] Chester العلي Facility:[id number] Start: 12-11-2022 End: 12-11-2022 ambulatory DO Chester العلي Work Phone: [facility] Work Phone: Start: 12-11-2022 End: 12-11-2022 Patient encounter procedure DO Chester العلي Work Phone: [facility]-Pacemaker Check Start: 12-11-[address] Chester العلي Facility:[id number] Start: 11-27-2022 Telephone encounter Chester العلي [facility] Start: 11-27-2022 End: 11-27-2022 Admission to same day surgery center DO Chester العلي Work Phone: [facility] [place] Start: 11-27-2022 End: 11-27-2022 ambulatory DO Chester العلي Work Phone: [employer] [facility] Other Start: 11-20-2022 End: 11-20-2022 ambulatory DO Chester العلي Work Phone: [facility] Work Phone: Start: 11-20-2022 End: 11-20-2022 Patient encounter procedure DO Chester العلي Work Phone: [facility]-Pre-Surgical Testing Work Phone: Start: 10-30-2022 Telephone encounter [facility] Start: 10-30-2022 End: 10-30-2022 ambulatory DO Chester العلي Work Phone: [facility] Work Phone: Start: 10-30-2022 End: 10-30-2022 Patient encounter procedure DO Chester العلي Work Phone: [facility] [address] Work Phone: Start: 10-24-2022 End: 10-24-2022 ambulatory Rachel Larios Other [employer] [facility] [employer] Other Start: 10-24-2022 Office outpatient vi sit 15 minutes Rachel CRUZ [facility] Start: 10-16-2022 End: 10-17-[address] CHESTER العلي Facility:H1 Start: 10-13-2022 Office outpatient vi sit 25 minutes Chester العلي Work Phone: [facility] 250 DO Work Phone: Start: 10-13-[address] Debbie Mac Facility: Start: 10-10-2022 End: 10-10-2022 ambulatory Chester العلي Other [facility] [employer] Other Start: 10-10-2022 Telephone encounter Chester العلي [facility] Start: 09-27-2022 Patient encounter procedure Chester العلي Work Phone: [facility] 250 DO Work Phone: Start: 09-27-[address] Debbie Mac Facility: Start: 09-24-2022 End: 09-24-2022 ambulatory Chester العلي Other [employer] Other Start: 09-24-2022 Telephone encounter Chester العلي [facility] Start: 09-21-[address] Chester العلي Facility:[id number] Start: 09-20-[address] Chester العلي Facility:[id number] Start: 09-19-[address] Chester العلي Facility:[id number] Start: 09-18-[address] Chester العلي Facility:[id number] Start: 09-17-2022 End: 09-21-2022 Evaluation and management of inpatient DO Chester Tyson Work Phone: [facility] [place] [facility] Work Phone: Start: 09-12-2022 End: 09-12-2022 ambulatory Chester العلي Other [employer] Other Start: 09-12-2022 Office outpatient vi sit 25 minutes Chester العلي [facility] Start: 09-11-2022 End: 09-11-2022 ambulatory DO Chester العلي Work Phone: [facility] Work Phone: Start: 09-11-2022 End: 09-11-2022 Patient encounter procedure DO Chester العلي Work Phone: [facility]-Pacemaker Check Start: 09-08-2022 End: 09-08-2022 ambulatory Chester العلي Other [facility] [employer] Other Start: 09-08-2022 Telephone encounter Chester SIMMONS [facility] Start: 09-06-[address] Jimena Smith Facility:[id number] Start: 09-05-[address] Jimena Smith Facility:[id number] Start: 09-04-[address] Jimena Smith Facility:[id number] Start: 09-03-[address] Jimena Smith Facility:[id number] Start: 09-02-[address] Chester العلي Facility:[id number] Start: 09-01-2022 End: 09-06-2022 Evaluation and management of inpatient DO Chester العلي Work Phone: [facility] [place] [facility] Work Phone: Start: 08-25-2022 Telephone encounter Chester العلي Work Phone: [facility] 250 DO Work Phone: Start: 08-24-[address] Debbie Mac Facility:[id number] Start: 08-24-2022 Patient encounter procedure Chester العلي Work Phone: [facility] 250 DO Work Phone: Start: 06-26-2022 Office outpatient vi sit 25 minutes Chester العلي Work Phone: [facility] 250 DO Work Phone: Start: 06-26-[address] Debbie Mac Facility: Start: 06-09-2022 End: 06-09-2022 ambulatory DO Chester العلي Work Phone: [facility] Work Phone: Start: 06-09-2022 End: 06-09-2022 Patient encounter procedure DO Chester العلي Work Phone: [facility] Start: 06-09-[address] Chester العلي Facility:90 Start: 05-12-2022 End: 05-13-[address] CHESTER العلي Facility:H1 Start: 05-01-2022 Adult health examination Chester العلي Other [facility] Other Start: 04-27-2022 End: 04-27-2022 ambulatory John Mims Other [facility] Other Start: 04-27-2022 Office outpatient vi sit 25 minutes John Mims [facility] Start: 04-20-2022 End: 04-20-[address] RACHEL LARIOS Facility:H1 Start: 03-27-2022 Rx Renewal Chester rosen Work Phone: [facility] 250 DO Work Phone: Start: 03-16-2022 End: 03-16-2022 ambulatory John Mims Other [facility] Other Start: 03-16-2022 Telephone encounter John feliciano [facility] Start: 03-10-2022 Office outpatient vi sit 25 minutes Chester العلي Work Phone: [facility] 250 DO Work Phone: Start: 03-10-[address] Chester العلي Facility: Start: 03-09-2022 End: 03-09-2022 Patient encounter procedure DO Chester Ball [facility] Start: 03-09-2022 End: 03-09-2022 Patient encounter procedure DO Chester Ball Work Phone: [facility] Check Start: 02-28-2022 End: 02-28-2022 ambulatory John Mims Other [facility] [employer] Other Start: 02-28-2022 Office outpatient vi sit 25 minutes John Mims [facility] G[facility] Start: 02-16-2022 End: 02-16-2022 Patient encounter procedure DO Chester Ball Work Phone: [facility] Start: 01-25-2022 End: 01-26-[address] Wolf MIMS Facility:H1 Start: 01-19-2022 End: 01-19-2022 Patient encounter procedure DO Chester Ball Work Phone: [facility] Start: 01-11-2022 End: 01-12-[address] CHESTER العلي Facility:H1 Start: 01-03-2022 End: 01-03-2022 Patient encounter procedure DO Chester Ball [facility] Start: 12-30-2021 End: 12-30-2021 Patient encounter procedure DO Chester Ball Work Phone: [facility]Surgical [facility] Start: 11-21-2021 End: 11-21-2021 Patient encounter procedure DO Chester Ball Work Phone: [facility] Check Start: 10-19-2021 Office outpatient vi sit 25 minutes Chester Hahn Ball Work Phone: [facility] 250 DO Work Phone: Start: 08-15-2021 Patient encounter procedure Chester E Ball Work Phone: [facility] 250 DO Work Phone: Start: 07-26-2021 Rx Renewal Chester E Bal l Work Phone: [facility] 250 DO Work Phone: Start: 07-06-2021 Postop follow up vis it related to original px Chester العلي Work Phone: [facility] 250 DO Work Phone: Start: 06-28-2021 Chart Update Chester Hahn Bal l Work Phone: [facility] [address] [place] Work Phone: Start: 06-26-2021 Chart Update Chester Jovani Bal l Work Phone: [facility] [address] [place] Work Phone: Start: 06-24-2021 Chart Update Chester Hahn Bal l Work Phone: [facility] [address] [place] Work Phone: Start: 06-24-2021 Chart Update Chester Hahn Bal l Work Phone: [facility] 250[address] [place] Work Phone: Start: 06-23-2021 Chart Update Chester Hahn Bal l Work Phone: [facility] [address] [place] Work Phone: Start: 06-23-2021 [facility], Provider: Debbie Mac, Status: Pen, Time: 10:00 AM Chester العلي Work Phone: [facility] [address] [place] Work Phone: Start: 06-22-2021 Chart Update Chester Jovani Bal l Work Phone: [facility] [address] [place] Work Phone: Start: 06-13-2021 Telephone encounter Chester Hahn Tyson Work Phone: [facility] 250[address] [place] Work Phone: Start: 06-06-2021 Patient encounter procedure Chester العلي Work Phone: [facility] 250 DO Work Phone: Start: 05-25-2021 Telephone encounter Debbie marina MD Work Phone: [facility] 250 DO Work Phone: Start: 07-26-2020 End: 07-31-2020 Evaluation and management of inpatient CHESTER العلي Facility:[facility] Procedures Date Procedure Procedure Detail Performing Clinician Start: 02-18-2024 Computed tomography of abdomen and pelvis with contrast DO Chester العلي Work Phone: Start: 01-22-2024 Ecg routine ecg w/le ast 12 lds w/i&r Debbie Mac MD Work Phone: Start: 01-18-2024 Plain chest X-ray DO Jose Rafael العلي Work Phone: Start: 11-28-2023 ECG 12-LEAD [...] TRACT, VIA OPENING JELANI WOO Start: 07-28-2020 [facility] R[facility], Single SANJUANA CARRERO Start: 07-28-2020 ULTRASONOGRAPHY OF R IGHT AND LEFT HEART, TRANSESOPHAGEAL SANJUANA CARRERO Start: 06-20-2017 Screening for osteoporosis Chester العلي Other Start: 09-13-2016 General examination of patient Chester العلي Other Start: 05-21-2015 Screening mammography B marguerite العلي Other Appendectomy Chester العلي Work Phone: [...] DTaP/Tdap/Td Vaccines (2 - Td or Tdap) [facility] Start: 07-11-2031 DTaP/Tdap/Td Vaccines (3 - Td or Tdap) DTaP/Tdap/Td Vaccines (3 - Td or Tdap) [facility] Start: 01-18-2025 Echocardiography Echocardiogram [facility] Start: 08-21-2024 Echocardiography Echocardiogram [facility] Start: 04-07-2024 End: 04-07-2024 Patient encounter procedure 04/07/2024 9:45 AM EDT Office Visit [address] [id number] Maxwell Medrano MD [address] [place] [address] [address] [place] [address] [facility] Start: 03-25-2024 End: 03-25-2024 Patient encounter procedure 03/25/2024 2:40 PM EDT Office Visit [facility] [address] [facility] [address] [place] [address] Debbie Mac MD [address] [facility] [address] [place] [address] [facility] Start: 01-20-2024 [facility] Start: 01-19-2024 [facility] Start: 01-18-2024 Referral to immunopathologist [facility] Start: 01-18-2024 [facility] Start: 01-18-2024 Hospital admission [facility] Start: 11-28-2023 End: 11-28-2023 Patient encounter procedure 11/28/2023 3:10 PM EDT Office Visit [facility] [address] [place] [address] Debbie Mac MD [address] [place] [address] [facility] Start: 09-19-2023 End: 09-19-2023 Patient encounter procedure 09/19/2023 1:00 PM EST Office Visit [facility] [address] [place] [address] Debbie Mac MD [address] [place] [address] [facility] Start: 09-02-2023 Echocardiography Echocardiogram [facility] Start: 07-05-2023 End: 07-05-2023 Patient encounter procedure 07/05/2023 1:30 PM EST Appointment [facility] [address] [place] [address] [facility] Start: 05-31-2023 FUV, Provider: Debbie Mac, Status: Pen, Time: 3:00 PM FUV, Provider: Debbie Mac, Status: Pen, Time: 3:00 PM [facility] Work Phone: Start: 05-31-2023 End: 05-31-2025 US Heart Transthoracic Transthoracic Echo (TTE) Complete Echocardiography Routine Chronic diastolic heart failure (CMS/HCC) Essential hypertension, benign Dyspnea, unspecified type Expected: 05/31/2023 (Approximate), Expires: 05/31/2025 [facility] Service Area Work Phone: Comment on above: Expected: 05/31/2023 (Approximate), Expi res: 05/31/2025 Start: 05-09-2023 FUV, Provider: Maxwell Medrano, Status: Pen, Time: 4:00 PM FUV, Provider: Maxwell Medrano, Status: Pen, Time: 4:00 PM [facility] 250 DO Work Phone: Start: 04-20-2023 COVID-19 Vaccine () COVID-19 Vaccine () [facility] Start: 04-20-2023 Influenza vaccination Influenza Vaccine (#1) [facility] Start: 04-04-2023 FUV, Provider: Maxwell Medrano, Status: Pen, Time: 3:00 PM FUV, Provider: Maxwell Medrano, Status: Pen, Time: 3:00 PM -[facility] 250 DO Work Phone: Start: 03-05-2023 [facility] Start: 03-05-2023 [facility] Start: 02-14-2023 FUV, Provider: Maxwell Medrano, Status: Pen, Time: 1:30 PM FUV, Provider: Maxwell Medrano, Status: Pen, Time: 1:30 PM [facility] Work Phone: Start: 01-09-2023 [facility] Start: 01-04-2023 FUV, Provider: Debbie Mac, Status: Pen, Time: 1:50 PM FUV, Provider: Debbie Mac, Status: Pen, Time: 1:50 PM -[facility] 250 DO Work Phone: Start: 11-27-2022 Laparoscopic cholecystectomy OR Cholecystectomy Laparoscopic (Not Applicable) [facility] Start: 11-27-2022 End: 11-27-2022 [facility] Start: 10-13-2022 FUV, Provider: Debbie Mac, Status: Pen, Time: 10:30 AM FUV, Provider: Debbie Mac, Status: Pen, Time: 10:30 [facility] Work Phone: Start: 09-21-2022 [facility] Start: 09-17-2022 Hospital admission [facility] Start: 09-17-2022 Referral to immunopathologist [facility] Start: 09-17-2022 Bacteria identified in Urine by Culture [facility] Start: 09-06-2022 [facility] Start: 09-05-2022 Blood chemistry [facility] Start: 09-05-2022 [facility] Start: 09-04-2022 Administration of prophylactic treatment [facility] Start: 09-04-2022 Blood chemistry [facility] Start: 09-04-2022 [facility] Start: 09-03-2022 Blood chemistry [facility] Start: 09-03-2022 [facility] Start: 09-02-2022 Blood chemistry [facility] Start: 09-02-2022 Brain natriuretic peptide measurement [facility] Start: 09-02-2022 Magnesium measurement [facility] Start: 09-02-2022 [facility] Start: 09-01-2022 Referral to immunopathologist [facility] Start: 09-01-2022 Hospital admission [facility] Start: 09-01-2022 [facility] Start: 09-01-2022 Bacteria identified in Urine by Culture Urine Culture [facility] Start: 07-12-2022 FUV, Provider: Debbie Mac, Status: Pen, Time: 2:40 PM FUV, Provider: Debbie Mac, Status: Pen, Time: 2:40 PM [facility] 250 DO Work Phone: Start: 03-09-2022 [facility] Work Phone: Start: 02-22-2022 FUV, Provider: Debbie Mac, Status: Pen, Time: 2:50 PM FUV, Provider: Debbie Mac, Status: Pen, Time: 2:50 PM [facility] 250 DO Work Phone: Start: 01-08-2022 COVID-19 Vaccine (3 - Pfizer series) COVID-19 Vaccine (3 - Pfizer series) [facility] Start: 01-03-2022 [facility] Work Phone: Start: 10-19-2021 FUV, Provider: Debbie Mac, Status: Pen, Time: 3:30 PM FUV, Provider: Debbie Mac, Status: Pen, Time: 3:30 PM [facility] 250 DO Work Phone: Start: 09-12-2021 FUV, Provider: Debbie Mac, Status: Pen, Time: 2:50 PM FUV, Provider: Debbie Mac, Status: Pen, Time: 2:50 PM -[facility] 250 DO Work Phone: Start: 07-26-2021 FUV, Provider: Debbie Mac, Status: Pen, Time: 2:00 PM -[facility] 250 DO Work Phone: Start: 06-23-2021 [facility], Provider: Debbie Mac, Status: Pen, Time: 10:00 AM [facility], Provider: Debbie Mac, Status: Pen, Time: 10:00 AM -[facility] [address] [place] Work Phone: Start: 11-08-2019 Pneumococcal Vaccine: 65+ Years (2 - PCV) Pneumococcal Vaccine: 65+ Years (2 - PCV) [facility] Start: 10-31-2012 Zoster Vaccines (2 of 3) Zoster Vaccines (2 of 3) [facility] Start: 2002 Hepatitis B Vaccines (1 of 3 - Risk 3-dose series) Hepatitis B Vaccines (1 of 3 - Risk 3-dose series) [facility] Start: 2002 RSV patients and/or patients aged 60+ years (1 - 1-dose 60+ series) RSV patients and/or patients aged 60+ years (1 - 1-dose 60+ series) [facility] Start: 1961 Hepatitis A Vaccines (1 of 2 - Risk 2-dose series) Hepatitis A Vaccines (1 of 2 - Risk 2-dose series) [facility] Start: 1960 Diabetes mellitus screening Diabetes Screening [facility] Start: 1942 Creatinine measurement Creatinine Level [facility] Start: 1942 Lipid panel Lipid Panel [facility] Start: 1942 Medicare Annual Wellness Visit Medicare Annual Wellness Visit (AWV) [facility] Start: 1942 Potassium measurement Potassium Level [facility] Start: 1942 Screening for osteoporosis Bone Density Scan [facility] CT Abdomen and Pelvi s W contrast IV [facility] CT Abdomen and Pelvi s W contrast IV [facility] Hepatitis A virus antibody, IgM type [facility] Work Phone: Hepatitis B core ant ibody measurement, IgM type [facility] Work Phone: Hepatitis B virus vieira rface Ag [Presence] in Serum or Plasma by Immunoassay [facility] Work Phone: Hepatitis C virus Ab Signal/Cutoff in Serum or Plasma by Immunoassay [facility] Work Phone: Hepatitis C virus RN A [log units/volume] (viral load) in Serum or Plasma by GUILLERMO with probe detection [facility] Work Phone: Hepatitis C virus RN A [Units/volume] (viral load) in Serum or Plasma by GUILLERMO with probe detection [facility] Work Phone: Homogenous nuclear A b pattern [Titer] in Serum [facility] Work Phone: Nuclear Ab [Titer] i n Serum [facility] Work Phone: Patient Education [facility] Work Phone: Patient referral [facility] Work Phone: End: 08-21-2023 US Heart Transthoracic [facility] Service Area Work Phone: Comment on above: Once for 1 Occurrences starting 08/21/19 24 until 08/21/2023 [facility] Immunizations Immunization Date Immunization Notes Care Provider Rola priest 06-29-2023 influenza, high dose seasonal, preservative-free Chester العلي Other [employer] [facility] [employer] Other 06-29-2023 influenza virus vaccine, unspecified formulation DO Chester العلي Work Phone: [facility] 05-26-2022 Fluad Quadrivalent 0 .5 ML Intramuscular Prefilled Syringe Chester العلي Work Phone: [facility] 250 DO Work Phone: 05-26-2022 influenza virus vaccine, split virus (incl. purified surface antigen) Chester العلي Other [employer] Other 05-26-2022 influenza virus vaccine, unspecified formulation Debbie Mac MD Work Phone: [facility] 11-13-2021 Comirnaty 30 MCG/0.3 ML Intramuscular Suspension Chester العلي Work Phone: [facility] 250 DO Work Phone: 11-13-2021 COVID-19 mRNA, Comirnaty (Pfizer) DO Chester العلي Work Phone: [facility] 07-11-2021 tetanus toxoid, redu maranda diphtheria toxoid, and acellular pertussis vaccine, adsorbed Chester العلي Work Phone: [facility] [facility] 06[facility]2021 influenza virus vaccine, split virus (incl. purified surface antigen) Chester Tyson Other [facility] [employer] Other 06-14-2021 influenza virus vaccine, unspecified formulation DO Chester العلي Work Phone: [facility] 10-07-2020 Pfizer-BioNTech COVID-19 Vacc 30 MCG/0.3ML Intramuscular Suspension Chester العلي Work Phone: [facility] Comment on above: Series: 09-17-2020 COVID-19 Vaccine Moderna - Documentation Purposes Only Chester اللعي Other [facility] 09-17-2020 Pfizer-BioNTech COVID-19 Vacc 30 MCG/0.3ML Intramuscular Suspension Chester العلي Work Phone: [facility] Comment on above: Series: 05-20-2020 influenza, seasonal, injectable Chester العلي Work Phone: [facility] [employer] DO Work Phone: Comment on above: Series: 05-05-2020 Flu Vaccine - Adult DO George العلي Work Phone: [facility] 05-05-2020 influenza virus vaccine, split virus (incl. purified surface antigen) Chester العلي Other [facility] [employer] Other 05-05-2020 influenza virus vaccine, unspecified formulation DO Chester العلي Work Phone: [facility] 05-05-2020 influenza, seasonal, injectable Chester العلي Work Phone: [facility] 05-20-2019 influenza, high dose seasonal, preservative-free Chester العلي Work Phone: [facility] [employer] 250 DO Work Phone: 11-07-2018 pneumococcal polysaccharide vaccine, 23 valent Chester العلي Work Phone: [facility] [employer] 250 DO Work Phone: 06-12-2018 influenza virus vaccine, split virus (incl. purified surface antigen) Chester العلي Other [facility] [employer] Other 06-12-2018 influenza virus vaccine, unspecified formulation DO Chester العلي Work Phone: [facility] 06-12-2018 Seasonal trivalent influenza vaccine, adjuvanted, preservative free Chester العلي Work Phone: [place] [address] DO Work Phone: 05-20-2018 influenza, injectabl e, quadrivalent, preservative free Chester العلي Work Phone: [place] [address] DO Work Phone: 06-21-2017 diphtheria, tetanus toxoids and acellular pertussis vaccine, unspecified formulation Chester العلي Other [facility] 07-06-2016 pneumococcal conjuga te vaccine, 13 valent Chester العلي Other [facility] 07-06-2016 pneumococcal Conjuga te, unspecified formulation; Translations: [Need for prophylactic vaccination against Streptococcus pneumoniae (pneumococcus)] Chester العلي Other [facility] [employer] Other 03-20-2015 pneumococcal polysaccharide vaccine, 23 valent Chester العلي Work Phone: [place] [address] DO Work Phone: Comment on above: Series: 03-20-2014 influenza virus vaccine, unspecified formulation Chester العلي Work Phone: [place] [address] DO Work Phone: 06-24-2013 tetanus and diphther ia toxoids, adsorbed, preservative free, for adult use (5 Lf of tetanus toxoid and 2 Lf of diphtheria toxoid) Chester العلي Other [facility] 09-05-2012 zoster vaccine, live Benjvelia العلي Work Phone: [place] [address] DO Work Phone: 07-29-2008 pneumococcal polysaccharide vaccine, 23 valent Chester العلي Other [facility] Payers Date Payer Category Payer Medicare [id number] 2023 Medicare [id number] 2023 Self-pay [id number] 2022 Unknown 2020 Medicare [id number] 2009 Unknown [id number] 1959 Private Health Insurance [id number] 1942 Unknown [id number] 2.16.8 40.1.327358.3.579.2.647 1942 Unknown [id number] 2.16. 840.1.570531.3.579.2.356 1942 Unknown [id number] 2.16.84 0.1.443419.3.579.2.593 1942 Unknown [id number] 2.16.84 0.1.642034.3.579.2.593 1942 Unknown [id number] 2.16.84 0.1.882388.3.579.2.593 1942 Unknown [id number] 2.16.84 0.1.370338.3.579.2.593 1942 Unknown [id number] 2.16.84 0.1.144978.3.579.2.593 1942 Unknown [id number] 2.16.84 0.1.360084.3.579.2.593 1942 Unknown [id number] 2.16.84 0.1.970985.3.579.2.593 1942 Unknown [id number] 2.16. 840.1.813417.3.579.2.356 1942 Unknown [id number] 2.16. 840.1.491515.3.579.2.356 1942 Unknown [id number] 2.16. 840.1.116246.3.579.2.356 1942 Unknown [id number] 2.16. 840.1.960174.3.579.2.356 1942 Unknown [id number] 2.16. 840.1.721644.3.579.2.356 1942 Unknown [id number] 2.16. 840.1.340204.3.579.2.356 1942 Unknown [id number] 2.16. 840.1.389823.3.579.2.356 1942 Unknown [id number] 2.16. 840.1.904235.3.579.2.356 1942 Unknown [id number] 2.16. 840.1.073983.3.579.2.356 1942 Unknown [id number] 2.16. 840.1.231341.3.579.2.356 1942 Unknown [id number] 2.16. 840.1.116441.3.579.2.356 1942 Unknown [id number] 2.16. 840.1.758196.3.579.2.356 1942 Unknown [id number] 2.16. 840.1.391544.3.579.2.356 1942 Unknown [id number] 2.16. 840.1.553641.3.579.2.356 1942 Unknown [id number] 2.16. 840.1.509353.3.579.2.356 1942 Unknown [id number] 2.16. 840.1.086000.3.579.2.356 1942 Unknown [id number] 2.16. 840.1.927869.3.579.2.356 1942 Unknown [id number] 2.16. 840.1.334220.3.579.2.356 1942 Unknown [id number] 2.16. 840.1.523394.3.579.2.356 1942 Unknown [id number] 2.16. 840.1.367395.3.579.2.356 1942 Unknown [id number] 2.16. 840.1.493160.3.579.2.356 1942 Unknown [id number] 2.16. 840.1.070104.3.579.2.356 1942 Unknown [id number] 2.16. 840.1.390409.3.579.2.356 1942 Unknown [id number] 2.16. 840.1.275812.3.579.2.356 1942 Unknown [id number] 2.16. 840.1.028436.3.579.2.356 1942 Unknown [id number] 2.16.84 0.1.105282.3.579.2.1246 1942 Unknown [id number] 2.16.84 0.1.266388.3.579.2.1259 1942 Unknown [id number] 2.16. 840.1.672660.3.579.2.196 1942 Unknown [id number] 2.16. 840.1.194995.3.579.2.196 1942 Unknown [id number] 2.16. 840.1.811843.3.579.2.196 1942 Unknown [id number] 2.16.8 40.1.907219.3.579.2.1244 1942 Unknown [id number] 2.16.8 40.1.289860.3.579.2.1244 1942 Unknown [id number] 2.16.8 40.1.715173.3.579.2.1244 1942 Unknown [id number] 2.16.8 40.1.676170.3.579.2.1244 1942 Unknown [id number] 2.16.8 40.1.630977.3.579.2.1244 1942 Unknown [id number] 2.16.8 40.1.116231.3.579.2.1244 1942 Unknown [id number] 2.16.8 40.1.908117.3.579.2.1244 Medicare [id number] Private Health Insurance [id number] Unknown [id number] 2.16.8 40.1.369224.3.579.2.531 Unknown [id number] 2.16.8 40.1.508735.3.579.2.531 Unknown [id number] 2.16.8 40.1.287753.3.579.2.531 Unknown [id number] 2.16.8 40.1.756278.3.579.2.531 Unknown [id number] 2.16.8 40.1.442081.3.579.2.531 Unknown [id number] 2.16.8 40.1.882046.3.579.2.531 Unknown [id number] 2.16.8 40.1.391108.3.579.2.531 Social History Date Type Detail Facility Start: 05-31-2023 End: 11-28-2023 No alcohol use No alcohol use [place] [address] DO Work Phone: Start: 08-22-2021 End: 01-19-2024 Tobacco smoking status NHIS Never smoked tobacco (finding) [facility] Start: 1940 Sex Assigned At Female F [facility] Start: 05-31-2023 End: 11-28-2023 Sex Assigned At [facility] [employer] Other Start: 05-31-2023 Tobacco use and exposure Smokeless tobacco non-user [facility] Work Phone: Start: 05-31-2023 End: 01-22-2024 Alcohol intake Lifetime non-drinker (finding) [facility] Work Phone: Start: 1940 Sex Assigned At Not on file [facility] Work Phone: Start: 05-21-2023 End: 01-22-2024 Exposure to SARS-CoV-2 (event) Not sure [facility] Medical Equipment Procedure Code Equipment Code Equipment Origin al Text Equipment Identifier Dates Insertion, pacemaker Endocardial pacing lead [id number] FDA Start: 06-29-2021 Insertion, pacemaker Endocardial pacing lead ()[id number] FDA Start: 06-29-2021 Insertion, pacemaker Dual-chambe r implantable pacemaker, rate-responsive ()[id number] FDA Start: 06-29-2021 Cystoscopy, with ureteral calculus manipulation and stent placement Polymeric ureteral stent ()[id number] FDA Start: 07-01-2021 Goals Date Patient Goal Desired Activity /State Functional Status Date Assessment Result Facility 01-20-2024 Functional status Patient at Baseline [facility] Work Phone: 09-21-2022 Functional status Patient at Baseline [facility] Work Phone: 09-06-2022 Functional status Patient at Baseline [facility] Work Phone: 09-02-2022 Functional status Bathing Patient at [facility] Work Phone: Mental Status Date Assessment Result Facility 01-20-2024 Cognitive function Cognitive Sta tus Patient at Baseline [facility] Work Phone: 09-21-2022 Cognitive function Cognitive Sta tus Patient at Baseline [facility] Work Phone: 09-06-2022 Cognitive function Cognitive Sta tus Patient at Baseline [facility] Work Phone: Clinical Notes 06-21-2021 to 01-22-2024 [...] (4' 11 ) documented in this encounter [facility] Work Phone: 01-20-2024 Progress note Note Date/Time January 20, 2024 1:46p m [facility] [address] [place] [address] Cardiology Progress Note Signed Patient: Lesa Golden MR#: [id number] : 1940 Acct:[id number] Age/Sex: 83 / F Adm Date: 4 Loc: 3T Room: [address] [place] [address] Type: ADM IN Attending Dr: Izzy Capps [...] this regimen Documented By: Christopher Richardson MD 1344 Signed By: <Electronically signed by MD Christopher Richardson> 01/20/24 1346 [facility] Work Phone: 1(287) 179-747406-01-2024 Progress note Author Izzy Capps [facility] January 19, 2024 6:48pm Note Date/Time January 19, 2024 5:02p m [facility] [address] [place] [address] Hospitalist Progress Note Signed Patient: Lesa Golden MR#: [id number] : 1940 Acct:[id number] Age/Sex: 83 / F Adm Date: 4 Loc: 3T Room: [address] [place] [address] Type: ADM IN Attending Dr: Izzy Capps [...] Dose Route Start Last Admin Trade Name Henrryq PRN Reason Stop Dose Admin Acetaminophen 650 [...] 1,000 Ml IV 01/17/25 15:29 75 mls/hr .[id number] KWAN Administration Diltiazem HCl 100 mg in 100 mls @ 5 mls/hr 01/18/24 15:30 01/19/24 03:40 Cardizem IV 01/17/25 15:29 5 mg/hr .Q20H KWNA 5 mls/hr Administration Protocol 5 MG/HR Magnesium [...] Plan Documented By: Izzy Capps MD 01/19/24 2479 Signed By: <Electronically signed by Izzy Capps MD> 01/19/24 9079 [facility] Work Phone: 1(937) 346-850006-01-2024 Consult note Author Christopher Richardson [facility] January 19, 2024 12:11pm Note Date/Time January 19, 2024 12:08 pm [facility] [address] [place] [address] Cardiology Consult Note Signed Patient: Lesa Golden MR#: [id number] : 1940 Acct:[id number] Age/Sex: 83 / F Adm Date: 4 Loc: Room: [address] [place] [address] Type: ADM IN Attending Dr: Izzy Capps [...] additional complaints, except as documented [facility] Medical History Chronic heart failure with [...] Social History Comments: independent living at the [facility] Medications and Allergies Allergies Sulfa (Sulfonamide [...] A 2,500 unit-vit C 100 mg-biotin 2,500 sdw-rhku-xrxiya capsule (Jskf-Kgkb-Gjxv (vit A,U-mwcvlp-Ul-Cu)) 1 cap PO DAILY 01/18/24 [History Confirmed [...] x10E3/uL Lymph # (Auto) 1.0 (1.00-4.8) x10E3/uL [place] # (Auto) 0.8 (0.0-0.8) x10E3/uL Eos # [...] 1000 ,000 ml @ 75 mls/hr IV .[id number] KWAN Rx#:[id number] dilTIAZem 100 MG -*NaCl* 100 mg 100 / 100 In 100 ml @ 5 MG/HR 5 mls/hr IV .Q20H KWAN Rx#:[id number] Oral 200 / 200 Other: # Voids 1 # Unmeasured Voids 1 # Bowel Movements 0 Weight 69.9 kg 69.7 kg Date of Last Bowel Movement 01/18/24 01/18/24 Patient Weight 01/19/24 23:59 Weight 69.7 kg Lab 01/18/24 15:40 PT 16.8 H INR 1.5 APTT 31.3 A&P - Cardiology (1) Atrial fibrillation with RVR: Assessment/Problem Details: Symptomatic. Believe the yarsani of maintenance of sinus rhythm is of [...] signed by MD Christopher Richardson> 01/19/24 1211 [facility] Work Phone: 1(567) 742-614306-01-2024 History and physical note Author Izzy Capps [facility] January 19, 2024 1:25am Note Date/Time January 18, 2024 8:45p m [facility] [address] [place] [address] Hospitalist H&P Signed Patient: Lesa Golden MR#: [id number] : 1940 Acct:[id number] Age/Sex: 83 / F Adm Date: 4 Loc: Room: [address] [place] [address] Type: ADM IN Attending Dr: Izzy Capps [...] with:?the medical team, the patient [facility] Medical History Chronic heart failure with [...] List clean-up per request of Phys. [facility] Fibromyalgia Problem List clean-up per request of Phys. EHR Cmte Arthritis back and neck Problem List clean-up per request of Phys. EHR Cmte Hypertension Problem List clean-up per request of Phys. EHR [facility] History of cardiac pacemaker in situ Presbyesophagus Hiatal hernia Restless leg Hyperlipemia Problem List clean-up per request of Phys. EHR Cmte CHF (congestive heart failure) Problem List clean-up per request of Phys. EHR [facility] Kidney stones removal of kidney stone R flank in 2021 Problem List clean-up per request of Phys. EHR [facility] Pacemaker Problem List clean-up per request of Phys. EHR [facility] Atrial fibrillation, persistent Problem List clean-up per request of Phys. EHR [facility] COVID-19 2019 Problem List clean-up per request of Phys. EHR [facility] Atrial fibrillation with RVR Problem List clean-up per request of Phys. EHR [facility] Hernia of abdominal wall Problem List clean-up per request of Phys. EHR [facility] Surgical History History of cholecystectomy 2022 History of colonoscopy 2011 History of cardiac catheterization Problem List clean-up per request of Phys. [facility] H/O eye surgery right eye Problem List clean-up per request of Phys. EHR [facility] History of cataract surgery marybeth eye Problem List clean-up per request of Phys. EHR [facility] History of appendectomy Problem List clean-up per request of Phys. [facility]HR [facility] History of tonsillectomy Problem List clean-up per request of Phys. EHR [facility] H/O foot surgery left Problem List clean-up per request of Phys. [facility]HR [facility] History of hysterectomy Problem List clean-up per request of Phys. EHR [facility] Family History Father Heart & renal disease, hypertensive, with heart fail/chron kidney dis Depression Sister Heart disease Mother Brain tumor Father Mother Social History Smoking Status: Never smoker Substance Use Type: None Substance Abuse Comment: etoh occasional Social History Comments: independent living at the [facility] in [facility] Medications and Allergies Allergies Sulfa (Sulfonamide Antibiotics) [...] A 2,500 unit-vit C 100 mg-biotin 2,500 bll-dqcj-vkugff capsule (Kcus-Gzcs-Oljy (vit A,O-shihcf-Vu-Cu)) 1 cap PO DAILY 01/18/24 [History Confirmed [...] % (Auto) 9.2 % (.) 01/18/24 15:40 [place] % (Auto) 7.6 % (.) 01/18/24 15:40 Eos % (Auto) 1.2 % (.) 01/18/24 15:40 Baso % (Auto) 0.5 % (.) 01/18/24 15:40 Nucleat RBC Rel Count 0.1 /100 WBC (0-0.5) 01/18/24 15:40 Neut # (Auto) 8.5 x10E3/uL (1.8-7.7) H 01/18/24 15:40 Lymph # (Auto) 1.0 x10E3/uL (1.00-4.8) 01/18/24 15:40 [place] # (Auto) 0.8 x10E3/uL (0.0-0.8) 01/18/24 15:40 [...] Izzy Capps MD> 01/19/24 0125 [facility] Work Phone: 1([phone]) 297-353901-31-2024 History of Present illness Narrative* Debbie Mac [...] had been seen in the pastby Dr. Medrano. She did undergo cardiac catheterization that showed [...] mouth once daily., Disp: , Rfl: HYDROcodone-acetaminophen ([place]) 10-325 mg tablet, Take 1 tablet by [...] vessel coronary artery disease [facility]: 1([phone]) 579-649601-31-2024 Instructions* Patient Instructions* Maggy Vee LPN - [...] Maalox also. Pacemaker check [facility] Work Phone: 1([phone]) 610-945210-12-2023 History of Present illness Narrative* Debbie Mac [...] will consider referring her back to Dr. Medrano for an ablation 4. Follow-up in 4-month [...] mouth once daily., Disp: , Rfl: HYDROcodone-acetaminophen ([place]) 10-325 mg tablet, Take 1 tablet by [...] 11. Dyspnea, unspecified type documented in this [facility] Work Phone: 1([phone]) 242-582910-12-2023 Instructions* Patient Instructions* Maggy Vee LPN - [...] time of your visit. [facility] Work Phone: 1([phone]) 667-239708-02-2023 Evaluation note* Encounter Date Diagnosis Assessment Notes [...] are maintaining regular scheduled appts with their immunopathologist. No bleeding complications Mar, Chronic heart failure [...] (ICD-10 - R06.02) Multifactorial but mostly deconditioning. [facility] w/o obstructive coronary disease Psat 98% [...] High risk medication use (ICD-10 - Z79.899) [employer] Other 04-10-2023 Consult note Author Debbie Mac [facility] November 27, 2022 11:58am Note Date/Time November 27, 2022 11: 48am [facility] [address] [place] [address] Cardiology Consult Note Signed Patient: Lesa oGlden MR#: [id number] : 1940 Acct:[id number] Age/Sex: 82 / F Adm Date: 3 Loc: [place] Room: Type: [facility] Attending Dr: Wilbur Watson DO Copies [...] function and a previous stress test in [place] that showed no evidence of myocardial ischemia. [...] Social History Comments: independent living at the [facility] in [facility] Medications and Allergies Allergies fentanyl Allergy (Verified [...] MD Debbie Mac> 11/27/22 1158 [facility] Work Phone: 1(368) 997-957604-10-2023 Progress note Author Emmanuel Holland [facility] November 27, 2022 11:10am Note Date/Time November 27, 2022 11: 10am [facility] [address] [place] [address] Anesthesia Progress Note Signed Patient: Lsea Golden MR#: [id number] : 1940 Acct:[id number] Age/Sex: 82 / F Adm Date: 3 Loc: [place] Room: Type: [facility] Attending Dr: Wilbur Watson DO Copies [...] Holland Jr, MD> 11/27/22 1110 [facility] Work Phone: 1([phone]) [phone] Evaluation note* Encounter Date Diagnosis Assessment Notes Treatment Notes Treatment Clinical Notes Oct, Pulmonary nodule (ICD-10 - R91.1) CT chest: no nodules - 10/2022 [employer] Other 03-07-2023 Evaluation note* Encounter Date Diagnosis [...] verbalized understanding and agreement of tx plan. [employer] Other 02-02-2023 Discharge summary Author Sam Dukes [facility] September 21, 2022 3:33pm Note Date/Time September 21, 2022 3 :17pm [facility] [address] [place] [address] Discharge Summary Signed Patient: Lesa Golden MR#: [id number] : 1940 Acct:[id number] Age/Sex: 82 / F Adm Date: 3 Loc: Room: [address] [place] [address]: Sam Dukes DO Copies to: [...] and collapse. The patient was outside of [facility] when she suddenly lost consciousness. Work-up in [...] % (Auto) 68.2, Lymph % (Auto) 18.9, [place] % (Auto) 7.6, Eos % (Auto) 4.6, Baso % (Auto) 0.7, Nucleat RBC Rel Count 0.0, Neut # (Auto) 3.9, Lymph # (Auto) 1.1, [place] # (Auto) 0.4, Eos # (Auto) 0.3, [...] You are scheduled for an EKG at [facility] on 09/27/2022 at 1:00pm Instructions: Heart Failure, [...] <Electronically signed by Sam Dukes DO> 09/21/22 2511 [facility] Work Phone: 1(812) 291-527902-02-2023 Progress note Author Ivyaries Farzadtellykrysten [facility] September 21, 2022 9:48am Note Date/Time September 21, 2022 9 :45am [facility] [address] [place] [address] Cardiology Progress Note Signed Patient: Lesa Golden MR#: [id number] : 1940 Acct:[id number] Age/Sex: 82 / F Adm Date: 3 Loc: Room: [address] [place] [address] Type: ADM IN Attending Dr: Sam Dukes [...] % (Auto) 68.2 Lymph % (Auto) 18.9 [place] % (Auto) 7.6 Eos % (Auto) 4.6 Baso % (Auto) 0.7 Nucleat RBC Rel Count 0.0 Neut # (Auto) 3.9 Lymph # (Auto) 1.1 [place] # (Auto) 0.4 Eos # (Auto) 0.3 [...] signed by MD Debbie Mac> 09/21/22 0948 [facility] Work Phone: 1(671) 742-796702-01-2023 Progress note Author Sam Dukes [facility] September 20, 2022 3:21pm Note Date/Time September 20, 2022 3 :21pm [facility] [address] [place] [address] Hospitalist Progress Note Signed Patient: Lesa Golden MR#: [id number] : 1940 Acct:[id number] Age/Sex: 82 / F Adm Date: 3 Loc: 4P Room: [address] [place] [address] Type: ADM IN Attending Dr: Sam Dukes [...] Sam Dukes DO> 09/20/22 1521 [facility] Work Phone: 1([phone]) [phone] History of Present illness Narrative* Lesa Golden is an 82 y/o female referred by Dr Mac for evaluation of AF. * PMH includes HTN, HLD, HF, SSS s/p PPG implant, CKD, obesity and AF. * Treatment of her AF includes Amiodarone (d/c d for concerns of senior living side effects), tikosyn (prolonged OTc), sotalol and DCCV (09/2022). * Symptoms of her AF include fatigue and BRAY. * Pt follows with Dr Stover for management of her AF. Pt has previously been on Amio but was concerned about long term care social worker side effects. She was then put on [...] CONDUCTION @ 109 bpm * Echo 08/2022 ([facility]): LVEF 40%, moderate anteroseptal hypokinesis with wall motion suggestive of conduction abnormality, LA mildly dilated, trace MR & TR * Echo 06/2021: EF 45%, severe anteroseptal hypokinesis, mild-mod DD, LA mildly dilated, mild-mod MR,mild TR, mild-mod pHTN [facility] Work Phone: 1([phone]) [phone] History of Present illness Narrative* Lesa Golden is an 82 y/o female referred by Dr Mac for evaluation of AF. * PMH includes HTN, HLD, HF, SSS s/p PPG implant, CKD, obesity and AF. * Treatment of her AF includes Amiodarone (d/c d for concerns of senior living side effects), tikosyn (prolonged OTc), sotalol and DCCV (09/2022). * Symptoms of her AF include fatigue and BRAY. * Pt follows with Dr Stover for management of her AF. Pt has previously been on Amio but was concerned about senior living side effects. She was then put on [...] CONDUCTION @ 109 bpm * Echo 08/2022 ([facility]): LVEF 40%, moderate anteroseptal hypokinesis with wall motion suggestive of conduction abnormality, LA mildly dilated, trace MR & TR * Echo 06/2021: EF 45%, severe anteroseptal hypokinesis, mild-mod DD, LA mildly dilated, mild-mod MR,mild TR, mild-mod pHTN MQ-Emarhsuxrq-RYY [facility] [address] [place] Work Phone: 1([phone]) 441-554302-01-2023 Progress note Author Debbie Mac [facility] September 20, 2022 9:04am Note Date/Time September 20, 2022 9 :03am [facility] [address] [place] [address] Cardiology Progress Note Signed Patient: Lesa Golden MR#: [id number] : 1940 Acct:[id number] Age/Sex: 82 / F Adm Date: 3 Loc: 4P Room: [address] [place] [address] Type: ADM IN Attending Dr: Sam Dukes [...] % (Auto) 65.4 Lymph % (Auto) 22.6 [place] % (Auto) 6.8 Eos % (Auto) 4.5 Baso % (Auto) 0.7 Nucleat RBC Rel Count 0.2 Neut # (Auto) 3.6 Lymph # (Auto) 1.2 [place] # (Auto) 0.4 Eos # (Auto) 0.2 [...] pacemaker check Documented By: Debbie Mac MD 09/20/2203 Signed By: <Electronically signed by MD Debbie Mac> 09/20/22 0904 [facility] Work Phone: [phone]) [phone] [facility] Progress note Author Sam Dukes [facility] September 19, 2022 6:52pm Note Date/Time September 19, 2022 6 :52pm [facility] [facility] [address] [place] [address] Hospitalist Progress Note Signed Patient: Lesa Golden MR#: [id number] : 1940 Acct:[id number] Age/Sex: 82 / F Adm Date: 3 Loc: Room: [address] [place] [address] Type: ADM IN Attending Dr: Sam Dukes [...] <Electronically signed by Sam Dukes DO> 09/19/22 1852 [facility] Work Phone: 1(326) 910-728401-31-2023 Progress note Author Debbie Mac [facility] September 19, 2022 9:57am Note Date/Time September 19, 2022 9 :57am [facility] [address] [place] [address] Cardiology Progress Note Signed Patient: Lesa Golden MR#: [id number] : 1940 Acct:[id number] Age/Sex: 82 / F Adm Date: 3 Loc: Room: [address] [place] [address] Type: ADM IN Attending Dr: Sam Dukes [...] % (Auto) 68.4 Lymph % (Auto) 20.4 [place] % (Auto) 6.6 Eos % (Auto) 4.0 Baso % (Auto) 0.6 Nucleat RBC Rel Count 0.1 Neut # (Auto) 4.2 Lymph # (Auto) 1.2 [place] # (Auto) 0.4 Eos # (Auto) 0.2 [...] MD Debbie Mac> 09/19/22 0957 [facility] Work Phone: 1(108) 457-630101-30-2023 Progress note Author Sam Dukes [facility] September 18, 2022 6:04pm Note Date/Time September 18, 2022 6 :04pm [facility] [address] [place] [address] Hospitalist Progress Note Signed Patient: Lesa Golden MR#: [id number] : 1940 Acct:[id number] Age/Sex: 82 / F Adm Date: 3 Loc: Room: [address] [place] [address] Type: ADM IN Attending Dr: Sam Dukes [...] <Electronically signed by Sam Dukes DO> 09/18/22 5872 [facility] Work Phone: 1([phone]) 969-127701-30-2023 Consult note Author Debbie Mac [facility] September 18, 2022 3:50pm Note Date/Time September 18, 2022 3 :39pm [facility] [address] [place], [place] [address] Cardiology Consult Note Signed Patient: Lesa Golden MR#: [id number] : 1940 Acct:[id number] Age/Sex: 82 / F Adm Date: 3 Loc: Room: [address] [place] [address] Type: ADM IN Attending Dr: Sam Dukes [...] test was 2 years ago back in [place] and was negative Review of Systems Review [...] Social History Comments: independent living at the [facility] Medications and Allergies Allergies fentanyl [...] signed by MD Debbie Mac> 09/18/22 1550 [facility] Work Phone: 1([phone]) 987-375001-29-2023 History and physical note Author Jay Ceja [facility] September 17, 2022 5:45pm Note Date/Time September 17, 2022 5 :45pm [facility] [address] [place] [address] Hospitalist H&P Signed Patient: Lesa Golden MR#: [id number] : 1940 Acct:[id number] Age/Sex: 82 / F Adm Date: 3 Loc: Room: [address] [place] [address] Type: ADM IN Attending Dr: Jay Ceja [...] rate at home. Today she was at [employer] and she was standing upwaiting for her [...] Social History Comments: independent living at the [facility] Medications and Allergies Allergies fentanyl [...] % (Auto) 15.2 % (.) 09/17/22 13:19 [place] % (Auto) 7.1 % (.) 09/17/22 13:19 Eos % (Auto) 3.5 % (.) 09/17/22 13:19 Baso % (Auto) 0.6 % (.) 09/17/22 13:19 Nucleat RBC Rel Count 0.3 /100 WBC (0-0.5) 09/17/22 13:19 Neut # (Auto) 5.9 x10E3/uL (1.8-7.7) 09/17/22 13:19 Lymph # (Auto) 1.2 x10E3/uL (1.00-4.8) 09/17/22 13:19 [place] # (Auto) 0.6 x10E3/uL (0.0-0.8) 09/17/22 13:19 [...] pH 5.5 (5.0-9.0) 09/17/22 13:19 Ur Specific [place] 1.024 (1.001-1.030) 09/17/22 13:19 Urine Protein Trace [...] <Electronically signed by Jay Ceja DO> 09/17/22 1743 [facility] Work Phone: 1([phone]) 527-253001-24-2023 Evaluation note* Encounter Date Diagnosis Assessment Notes Treatment Notes Treatment Clinical Notes Aug, Persistent atrial fibrillation (ICD-10 - I48.19) This patient is in NSR or rate controlled. This patient is anticoagulated to prevent thromboembolic events. They are maintaining regular scheduled appts with their immunopathologist. Aug, Chronic heart failure with preserved ejection [...] use, the patient reduces the risk for IL, CVA, HTN, cardiac dysrhythmias and sudden cardiac [...] supplement, exercise w/ healthy diet. Symptoms tolerable Zweemie Other 01-18-2023 Progress note Author Debbie Mac [facility] September 06, 2022 9:57am Note Date/Time September 06, 2022 9 :53am [facility] [address] [place] [address] Cardiology Progress Note Signed Patient: Lesa Golden MR#: [id number] : 1940 Acct:[id number] Age/Sex: 81 / F Adm Date: 3 Loc: Room: [address] [place] [address] Type: ADM IN Attending Dr: Anival Easton [...] MD Debbie Mac> 09/06/22 0957 [facility] Work Phone: 1(279) 279-526901-17-2023 Progress note Author Anival Easton [facility] September 05, 2022 6:18pm Note Date/Time September 05, 2022 3 :58pm [facility] [address] [place] [address] Hospitalist Progress Note Signed Patient: Lesa Golden MR#: [id number] : 1940 Acct:[id number] Age/Sex: 81 / F Adm Date: 3 Loc: Room: [address] [place] [address] Type: ADM IN Attending Dr: Anival Easton [...] mg 09/01/22 20:29 Bisacodyl 10 Mg Supp.Rect AL 09/01/23 20:28 DAILY PRN Constipation Docusate Sodium 100 mg 09/01/22 21:00 09/05/22 08:51 Docusate 100 Mg Capsule PO 09/01/23 20:59 100 mg BID KWAN Administration Enalapril Maleate 2.5 mg 09/04/22 21:00 01/16/23 20:08 Enalapril Maleate 2.5 Mg Tablet PO [...] 2. Dysphagia?speech therapy, postrepair paraesophageal hiatal hernia [place] 2016 Attending attestation: Patient was personally seen by me on the day of encounter. I reviewed her history and performed shea elements of exam and formulated the plan of care and confirmed the CAPPER MACHINE OPERATOR's note above. Plan of care reflects my direct input Documented By: MELY Jacob 3 1558 Signed By: <Electronically signed by RAY-ABI Haro> 09/05/22 1722 <Electronically signed by Anival Easton MD> 09/05/22 1818 [facility] Work Phone: [phone] 153-704701-17-2023 Progress note Author Debbie Mac [facility] September 05, 2022 12:06pm Note Date/Time September 05, 2022 1 2:06pm [facility] [address] [place] [address] Cardiology Progress Note Signed Patient: Lesa Golden MR#: [id number] : 1940 Acct:[id number] Age/Sex: 81 / F Adm Date: 3 Loc: 4 Room: [id number] Type: ADM IN Attending Dr: Anival Easton [...] % (Auto) 59.1 Lymph % (Auto) 25.6 [place] % (Auto) 9.7 Eos % (Auto) 4.7 Baso % (Auto) 0.9 Nucleat RBC Rel Count 0.2 Neut # (Auto) 3.3 Lymph # (Auto) 1.4 [place] # (Auto) 0.5 Eos # (Auto) 0.3 [...] MD Debbie Mac> 09/05/22 1206 [facility] Work Phone: 1([phone]) 515-897901-17-2023 Progress note Author Anival Easton [facility] September 05, 2022 8:27am Note Date/Time September 04, 2022 2 :47pm [facility] [address] [place] [address] Hospitalist Progress Note Signed Patient: Lesa Golden MR#: [id number] : 1940 Acct:[id number] Age/Sex: 81 / F Adm Date: 3 Loc: Room: [address] [place] [address] Type: ADM IN Attending Dr: Anival Easton [...] mg 09/01/22 20:29 Bisacodyl 10 Mg Supp.Rect AL 09/01/23 20:28 DAILY PRN Constipation Docusate Sodium [...] Signed By: <Electronically signed by MELY Haro> 09/04/228 <Electronically signed by Anival Easton MD> 09/05/22 0827 [facility] Work Phone: [phone] 516-154801-16-2023 Progress note Author Jimena Smith [facility] September 04, 2022 11:32am Note Date/Time September 04, 2022 1 1:32am [facility] [address] [place] [address] Cardiology Progress Note Signed Patient: Lesa Golden MR#: [id number] : 1940 Acct:[id number] Age/Sex: 81 / F Adm Date: 3 Loc: Room: [address] [place] [address] Type: ADM IN Attending Dr: Anival Easton [...] % (Auto) 64.7 Lymph % (Auto) 22.7 [place] % (Auto) 7.6 Eos % (Auto) 4.3 Baso % (Auto) 0.7 Nucleat RBC Rel Count 0.2 Neut # (Auto) 4.3 Lymph # (Auto) 1.5 [place] # (Auto) 0.5 Eos # (Auto) 0.3 [...] pressure readings Documented By: Jimena Smith MD, FACC 3 1129 Signed By: <Electronically signed by MD CLAUDIA Smith> 09/04/22 1132 [facility] Work Phone: 1(190) 357-472101-15-2023 Progress note Author Jay Ceja [facility] September 03, 2022 1:12pm Note Date/Time September 03, 2022 1 :12pm [facility] [address] [place] [address] Hospitalist Progress Note Signed Patient: Lesa Golden MR#: [id number] : 1940 Acct:[id number] Age/Sex: 81 / F Adm Date: 3 Loc: Room: [address] [place] [address] Type: ADM IN Attending Dr: Jay Ceja [...] mg 09/01/22 20:29 Bisacodyl 10 Mg Supp.Rect AL 09/01/23 20:28 DAILY PRN Constipation Bisacodyl 10 [...] problemsafter repair of a paraesophageal hiatal hernia [facility] and 2016. High-resolution CT scan of [...] signed by Jay Ceja DO> 09/03/22 1312 [facility] Work Phone: 1(648) 825-371101-15-2023 Progress note Author Jimena Smith [facility] September 03, 2022 12:24pm Note Date/Time September 03, 2022 1 2:21pm [facility] [address] [place], [place] [address] Cardiology Progress Note Signed Patient: Lesa Golden MR#: [id number] : 1940 Acct:[id number] Age/Sex: 81 / F Adm Date: 3 Loc: Room: [address] [place] [address] Type: ADM IN Attending Dr: Jay Ceja [...] % (Auto) 68.3 Lymph % (Auto) 19.1 [place] % (Auto) 8.2 Eos % (Auto) 3.9 Baso % (Auto) 0.5 Nucleat RBC Rel Count 0.2 Neut # (Auto) 5.0 Lymph # (Auto) 1.4 [place] # (Auto) 0.6 Eos # (Auto) 0.3 [...] 5 mg twice daily and continue beta- leladn therapy, add spironolactone Documented By: Jimena Smith MD, [facility] 3 1220 Signed By: <Electronically signed by MD CLAUDIA Smith> 09/03/22 1224 [facility] Work Phone: [phone]) 412-984801-14-2023 Consult note Author Jimena Smith [facility] September 02, 2022 2:58pm Note Date/Time September 02, 2022 2 :53pm [facility] [address] [place] [address] Cardiology Consult Note Signed Patient: Lesa Golden MR#: [id number] : 1940 Acct:[id number] Age/Sex: 81 / F Adm Date: 3 Loc: Room: [address] [place] [address] Type: ADM IN Attending Dr: Jay Ceja DO Copies to: DO Jimena Carias MD, [facility] Jay Ceja, ~ Cardiology HPI History of [...] Social History Comments: independent living at the [facility] Medications and Allergies Allergies fentanyl [...] x10E3/uL Lymph # (Auto) 1.6 (1.00-4.8) x10E3/uL [place] # (Auto) 0.5 (0.0-0.8) x10E3/uL Eos # [...] ml @ 600 mls/hr IV BOLUS ONE Rx#:[id number] Amiodarone 360Mg-*D5w* 360 mg 200 / 200 200 / 400 200 / 400 In 200 ml @ 1 MG/MIN 33.333 mls /hr IV .Q6H [facility] Rx#:[id number] Oral 100 / 100 Other: # Voids [...] (primary) hypertension Documented By: Jimena Smith MD, [facility] 3 1452 Signed By: <Electronically signed by [facility] Jimena Smith> 09/02/22 1458 [facility] Work Phone: 1(854) 167-995601-14-2023 Progress note Author Jay Ceja [facility] September 02, 2022 2:42pm Note Date/Time September 02, 2022 1 :43pm [facility] [address] [place] [address] Hospitalist Progress Note Signed Patient: Lesa Golden MR#: [id number] : 1940 Acct:[id number] Age/Sex: 81 / F Adm Date: 3 Loc: Room: [address] [place] [address] Type: ADM IN Attending Dr: Jay Ceja [...] mg 09/01/22 20:29 Bisacodyl 10 Mg Supp.Rect AL 09/01/23 20:28 DAILY PRN Constipation Bisacodyl 10 [...] signed by Jay Ceja DO> 09/02/22 1442 [facility] Work Phone: 1([phone] 197-151901-13-2023 History and physical note Author Jay Ceja [facility] September 01, 2022 8:29pm Note Date/Time September 01, 2022 8 :29pm [facility] [address] [place] [address] Hospitalist H&P Signed Patient: Lesa Golden MR#: [id number] : 1940 Acct:[id number] Age/Sex: 81 / F Adm Date: 3 Loc: ER Room: Type: [facility] ER Attending Dr: Copies to: DO Jay Craias DO Scotty J Fulton, DO~ HPI DATE [...] review all of the events in the assistant corporate controller system. None of these are consistent with [...] except as mentioned elsewhere in the documentation. [facility] Vaccinated for COVID-19?: Yes Medical History (Updated [...] Social History Comments: independent living at the [facility] Medications and Allergies Allergies fentanyl [...] wheezing. No focal crackles. Heart: On the assistant corporate controller she has an irregularly irregular rhythm with [...] % (Auto) 13.9 % (.) 09/01/22 12:40 [place] % (Auto) 7.5 % (.) 09/01/22 12:40 Eos % (Auto) 4.1 % (.) 09/01/22 12:40 Baso % (Auto) 0.8 % (.) 09/01/22 12:40 Nucleat RBC Rel Count 0.1 /100 WBC (0-0.5) 09/01/22 12:40 Neut # (Auto) 5.9 x10E3/uL (1.8-7.7) 09/01/22 12:40 Lymph # (Auto) 1.1 x10E3/uL (1.00-4.8) 09/01/22 12:40 [place] # (Auto) 0.6 x10E3/uL (0.0-0.8) 09/01/22 12:40 [...] 09/01/22 13:32 Urine Appearance Clear (Clear) 09/01/22 13: Urine pH 5.5 (5.0-9.0) 09/01/22 13:32 Ur Specific [place] 1.022 (1.001-1.030) 09/01/22 13:32 Urine Protein 30 [...] by Jay Ceja DO> 09/01/222028 [facility] Work Phone: [phone]) [phone] Evaluation note* Encounter Date Diagnosis Assessment Notes Treatment Notes Treatment Clinical Notes Apr, Cirrhosis (ICD-10 - K74.60) Apr, Vomiting (ICD-10 - R11.10) THIS IS 10 MINS ATER EATING AND UNDIGESTED FOODS. 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 PATIENT DID HAVE A MODIFIEDBARIUM SWALLOWNorth [facility] Other 11-15-2021 Note [id number]#1.00CD:127[facility] 06-23-2021 [id number]:09FR [facility] [place] [address] [place] Work Phone: 1(857) 987-317111-04-2021 [id number]:09FR ECG Post Procedure [facility] [address] [place] Work Phone: 1(468) 663-702911-04-2021 [id number]:09FR ECG Post Procedure [facility] [address] [place] Work Phone: 1([phone] 549-967411-02-2021 [facility] [place] COVID-19 FRMCNegative (Normal) Range:Negative Comments:Testing for SARS-CoV-2 by RT-PCR This test was developed and its performance characteristics determined by expressor software ([employer]) and validated at the [facility]. This test has not been FDA cleared [...] the authorization is terminated or revoked sooner.PERFORMED BY:[place] [address] [address] [place], [place] [phone] MEDICAL DIRECTORVITOR ZARATE M.D. [facility] [address] [place] Work Phone: Comment on above:Testing for SARS-CoV-2 by RT-PCR This test was developed and its performance characteristics determined by expressor software (BD) and validated at the [facility]. This test has not been FDA cleared [...] the authorization is terminated or revoked sooner.PERFORMED BY:[place] [address] [place] PJ[place]UM[place], [place] [phone] MEDICAL DIRECTORVITOR ZARATE M.D. 06-21-2021 NoteFR COVID-19 FRMCNegative (Normal)Range:Negative Comments:Testing for SARS-CoV-2 by RT-PCR This test was developed and its performance characteristics determined by [employer] ([employer]) and validated at the [facility]. This test has not been FDA cleared [...] the authorization is terminated or revoked sooner.PERFORMED BY:[place] [address] [address] [place] [place] [phone] MEDICAL DIRECTORVITOR ZARATE M.D. [place] [address] [place] Work Phone: Comment on above:Testing for SARS-CoV-2 by RT-PCR This test was developed and its performance characteristics determined by expressor software (BD) and validated at the [facility]. This test has not been FDA cleared [...] the authorization is terminated or revoked sooner.PERFORMED BY:[place] [address] [address] JAMESFONTA[place], [place] [phone] MEDICAL DIRECTORVITOR ZARATE M.D. 06-21-2021 NoteFR COVID-19 FRMCNegative (Normal)Range:Negative Comments:Testing for SARS-CoV-2 by RT-PCR This test was developed and its performance characteristics determined by expressor software (BD) and validated at the [facility]. This test has not been FDA cleared [...] the authorization is terminated or revoked sooner.PERFORMED BY:[place] [address] [address] YOST [phone] MEDICAL DIRECTORVITOR ZARATE M.D. [facility] Work Phone: Comment on above:Testing for SARS-CoV-2 by RT-PCR This test was developed and its performance characteristics determined by expressor software (BD) and validated at the [facility]. This test has not been FDA cleared [...] the authorization is terminated or revoked sooner.PERFORMED BY:[place] [address] [address] YOST [phone] MEDICAL DIRECTORVITOR ZARATE M.D. 06-21-2021 NoteFR COVID-19 FRMCNegative (Normal)Range:Negative Comments:Testing for SARS-CoV-2 by RT-PCR This test was developed and its performance characteristics determined by expressor software (BD) and validated at the [facility]. This test has not been FDA cleared [...] the authorization is terminated or revoked sooner.PERFORMED BY:[place] [address] [address] YOST [phone] MEDICAL DIRECTORVITOR ZARATE M.D. [facility] [place] Work Phone: Comment on above:Testing for SARS-CoV-2 by RT-PCR This test was developed and its performance characteristics determined by expressor software (BD) and validated at the [facility]. This test has not been FDA cleared [...] the authorization is terminated or revoked sooner.PERFORMED BY:[place] [address] [address] [place] [phone] MEDICAL DIRECTORVITOR ZARATE M.D. 06-21-2021 NoteFR COVID-19 [facility] (Normal)Range:Negative Comments:Testing for SARS-CoV-2 by RT-PCR This test was developed and its performance characteristics determined by expressor software (BD) and validated at the [facility]. This test has not been FDA cleared [...] the authorization is terminated or revoked sooner.PERFORMED BY:[place] [address] [address] [place] [phone] MEDICAL DIRECTORVITOR ZARATE M.D. [address] Work Phone: Comment on above:Testing for SARS-CoV-2 by RT-PCR This test was developed and its performance characteristics determined by expressor software ([employer]) and validated at the [facility]. This test has not been FDA cleared [...] the authorization is terminated or revoked sooner.PERFORMED BY:[place] [address] [address] [place]AC[place], [place] [phone] MEDICAL DIRECTORVITOR ZARATE M.D. 06-21-2021 NoteFR COVID-19 FRMCNegative (Normal)Range:Negative Comments:Testing for SARS-CoV-2 by RT-PCR This test was developed and its performance characteristics determined by expressor software (BD) and validated at the [facility]. This test has not been FDA cleared [...] the authorization is terminated or revoked sooner.PERFORMED BY:[place] [address] [address] [place], [place] [phone] MEDICAL DIRECTORVITOR ZARATE M.D. [address] Work Phone: Comment on above:Testing for SARS-CoV-2 by RT-PCR This test was developed and its performance characteristics determined by [employer] (BD) and validated at the [facility]. This test has not been FDA cleared [...] the authorization is terminated or revoked sooner.PERFORMED BY:[place] [address] [place], [place] [phone] MEDICAL DIRECTORVITOR ZARATE M.D. 06-21-2021 NoteFR COVID-19 [facility]ative (Normal)Range:Negative Comments:Testing for SARS-CoV-2 by RT-PCR This test was developed and its performance characteristics determined by [employer]isa[employer]evr (BD) and validated at the [facility]. This test has not been FDA cleared [...] the authorization is terminated or revoked sooner.PERFORMED BY:[place] [address] [address]AMESLUANNEC[place]UM[place] [place], [place] [phone] MEDICAL DIRECTORVITOR ZARATE M.D. -[facility] DO Work Phone: Comment on above:Testing for SARS-CoV-2 by RT-PCR This test was developed and its performance characteristics determined by expressor software (BD) and validated at the [facility]. This test has not been FDA cleared [...] the authorization is terminated or revoked sooner.PERFORMED BY:[facility] [place], [place] [phone] MEDICAL DIRECTORVITOR ZARATE M.D. Chief complaint Narrative - ReportedLESA GOLDEN is being seen for a cardiovascular evaluation of atrial fibrillation.VO-Sgiguo[facility]-Dgqria Work Phone: Chief complaint Narrative - ReportedLESA GOLDEN is being seen for a cardiovascular evaluation of atrial fibrillation. BO-Wojjuqefae-HHK [address] [place] Work Phone: Consult note Author Jimena Smith [facility] September 02, 2022 2:58pm Note Date/Time September 02, 2022 2 :53pm [facility] [address] [place] [address] Cardiology Consult Note Signed Patient: Lesa Golden MR#: [id number] : 1940 Acct:[id number] Age/Sex: 81 / F Adm Date: 3 Loc: Room: [address] [place] [address] Type: ADM IN Attending Dr: Jay Ceja DO Copies to: DO Jimena Carias MD, [facility] Jay Ceja, ~ Cardiology HPI History of [...] Social History Comments: independent living at the [facility] Medications and Allergies Allergies fentanyl [...] x10E3/uL Lymph # (Auto) 1.6 (1.00-4.8) x10E3/uL [place] # (Auto) 0.5 (0.0-0.8) x10E3/uL Eos # [...] ml @ 600 mls/hr IV BOLUS ONE Rx#:[id number] Amiodarone 360Mg-*D5w* 360 mg 200 / 200 200 / 400 200 / 400 In 200 ml @ 1 MG/MIN 33.333 mls /hr IV .Q6H [facility] Rx#:[id number] Oral 100 / 100 Other: # Voids [...] (primary) hypertension Documented By: Jimena Smith MD, [facility] 3 1452 Signed By: <Electronically signed by [facility] Jimena Smith> 09/02/22 0012 [facility] Work Phone: Discharge summary Author Izzy Capps [facility] January 20, 2024 3:42pm Note Date/Time January 20, 2024 2:55p [facility] [address] [place] [address] Discharge Summary Signed Patient: Lesa Golden MR#: [id number] : 1940 Acct:[id number] Age/Sex: 83 / F Adm Date: 4 Loc: Room: [address] [place] [address]: Izzy Capps MD Copies to: [...] 1 mg tablet 1 mg PO QHS Yqsa-Frtl-Ukha(vit A,C-biotin) 2,500 unit-100 mg-2,500 mcg capsule 1 [...] 30 Days Qty: 60 12RF Follow Up: [facility] [Provider Group] (Call office on Sunday to schedule follow-up with [facility]. ) Chester العلي, [Primary Care Provider] - [...] signed by Izzy Capps MD> 01/20/24 1542 [facility] Work Phone: Evaluation noteNo assessment information available [facility] Work Phone: evaluation noteNo InformationNort [facility] Other Evaluation note* Diagnosis Onset Date Resolution Status Atrial fibrillation with rapid ventricular response acute CHF (congestive heart failure) acute Dysphagia acute Dyspnea on exertion acute Hypertension acute Sick sinus syndrome acute Ventricular tachycardia acut e Weakness acute [facility] Work Phone: Evaluation note* Diagnosis Onset Date Resolution Status Atrial fibrillation with rapid ventricular response acute CHF (congestive heart failure) acute Dysphagia acute Dyspnea on exertion acute HTN (hypertension), benign a cute Hypertension acute Left ventricular systolic dysfunction, NYHA class 2 acute Sick sinus syndrome acute Ventricular tachycardia acut e Weakness acute [facility] Work Phone: Evaluation note* Diagnosis Onset Date Resolution Status Atrial fibrillation with rapid ventricular response acute CHF (congestive heart failure) acute Dysphagia acute Dyspnea on exertion acute HTN (hypertension), benign a cute Hypertension acute Left ventricular systolic dysfunction, NYHA class 2 acute Sick sinus syndrome acute Ventricular tachycardia acut e Weakness acute Atrial fibrillation with rapid ventricular response acute Syncope acute [facility] Work Phone: Evaluation note* Diagnosis [...] dysfunction, NYHA class 2 acute Syncope acute [facility] Work Phone: Evaluation note* Diagnosis [...] acute Syncope acute Atrial fibrillation, persistent acute [facility] Work Phone: Evaluation note* Diagnosis Onset Date Resolution Status Anticoagulated acute Atrial fibrillation with rapid ventricular response acute Dyspnea on exertion acute Hypertension acute Left ventricular systolic dysfunction, NYHA class 2 acute Syncope acute Atrial fibrillation, persistent acute [facility] Work Phone: Evaluation note* Diagnosis Persistent atrial [...] Dyspnea, unspecified type documented in this encounter [facility] Work Phone: Evaluation note* Diagnosis Chronic diastolic heart failure (CMS/HCC) Chronic diastolic heart failure Essential hypertension, benign Dyspnea, unspecified type documented in this encounter [facility] Work Phone: Evaluation note* Diagnosis Chronic diastolic heart failure (CMS/HCC) Chronic diastolic heart failure Essential hypertension, benign Dyspnea, unspecified type documented in this encounter [facility] Work Phone: Evaluation note* Diagnosis Persistent atrial fibrillation (CMS/HCC)- Primary Atrial fibrillation 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) Chronic diastolic heart failure (CMS/HCC) Chronic diastolic heart failure Essential hypertension, benign Mixed hyperlipidemia Pacemaker Cardiac pacemaker in situ Sinus bradycardia Other specified cardiac dysrhythmias Single vessel coronary artery disease Coronary atherosclerosis of unspecified type of vessel, [place] or graft documented in this encounter [facility] Work Phone: Evaluation note* Diagnosis Onset Date Resolution Status 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) acute Hypercholesterolemia acute Lumbar spondylosis acute Obstructive sleep apnea acut e Paroxysmal atrial fibrillation acute Primary hypertension acute Stage 3a chronic kidney disease acute [facility] Work Phone: Evaluation note* Diagnosis [...] acute Stage 3a chronic kidney disease acute [facility] Work Phone: evaluation note* Diagnosis Onset [...] hernia noneacti ve Nausea & vomiting noneactive [facility] Work Phone: evaluation note* Diagnosis Onset [...] acute Hx of hiatal hernia noneacti ve [facility] Work Phone: Hisbpap general Narrative - Reported* Type Description Date Medical History fibromyalgia Medical History chronic pain Medical History hypertension Surgical History hernia 2014 Surgical History foot surgery Surgical History cardiac pacemeker Surgical History appendectomy Hospitalization History hospitalization in every 24. Depression with treatment of ECT Hospitalization History no history of suicide at tempt Hospitalization History no history of trauma and substance abuse Zweemie Other Hisqugq general Narrative - Reported* Type Description Date [...] substance abuse Hospitalization History SEE SURGICAL HX Zweemie Other Hisjmyt general Narrative - Reported* Type Description Date [...] substance abuse Hospitalization History SEE SURGICAL HX Zweemie Other History of Present illness Narrative* Patient [...] testing * 6. Follow-up with pacemaker clinic [facility]uanne 250 DO Work Phone: History of [...] the above has been addressed by her precast concrete products installer Dr. Mota. She reports she underwent esophageal [...] exercise and try to lose some weight [facility] [employer]-grabHalo 250 DO Work Phone: History of Present [...] I reviewed her pacemaker check with her [facility] [employer] 250 DO Work Phone: History of Present [...] seen by both Dr. Chacon and Dr. Medrano. She did un dergo cardiac catheterization that [...] ablation she is scheduled to see Dr. Medrano in the near future * 4. We will refer her back to Dr. Stout for evaluation for her gallbladder disease and hiatal hernia * 5. Continue pacemaker follow-up * 6. I continue to encourage the patient to exercise and try to lose some weight. I advised her to restrict her salt intake [facility] Work Phone: History of Present illness Narrative* [...] seen by both Dr. Chacon and Dr. Medrano. She did un dergo cardiac catheterization that [...] ablation she is scheduled to see Dr. Medrano in the near future * 4. We will refer her back to Dr. Stout for evaluation for her gallbladder disease and hiatal hernia * 5. Continue pacemaker follow-up * 6. I continue to encourage the patient to exercise and try to lose some weight. I advised her to restrict her salt intake [facility] Work Phone: History of Present illness Narrative* [...] seen by both Dr. Chacon and Dr. Medrano. She did un dergo cardiac catheterization that [...] ablation she is scheduled to see Dr. Medrano in the near future * 4. We will refer her back to Dr. Stout for evaluation for her gallbladder disease and hiatal hernia * 5. Continue pacemaker follow-up * 6. I continue to encourage the patient to exercise and try to lose some weight. I advised her to restrict her salt intake [facility] Work Phone: Hospital Discharge instructions Additional Instructions Speech therapy recommendations: *Take pills whole with water *Sit upright at 90 degrees during all oral intake *Sit upright for 30 minutes after meals and snacks Dietitian recommendations: *Boost plus, 1 container, [facility] Work Phone: Hospital Discharge instructions Additional Instructions You are scheduled for an EKG at /[facility] on 09/27/2022 at 1:00pm [facility] Work Phone: Progress note Author Jay Ceja [facility] September 02, 2022 2:42pm Note Date/Time September 02, 2022 1 :43pm [facility] [address] [place] [address] Hospitalist Progress Note Signed Patient: Lesa Golden MR#: [id number] : 1940 Acct:[id number] Age/Sex: 81 / F Adm Date: 3 Loc: Room: [address] [place] [address] Type: ADM IN Attending Dr: Jay Ceja [...] mg 09/01/22 20:29 Bisacodyl 10 Mg Supp.Rect AL 09/01/23 20:28 DAILY PRN Constipation Bisacodyl 10 [...] Jay Ceja DO> 09/02/22 1442 [facility] Work Phone: Reason for referral (narrative)* Consultation (Routine) - Authorized Specialty Diagnoses / Procedures Referred By Ashtyn dobson Referred To Contact Cardiology Diagnoses 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) Pacemaker Sinus bradycardia Debbie Mac MD [address], [address] [address] Referral ID Status Reason Start Date Expiration Date Visits Requested Visits Authorized [id number] Authorized Specialty Services Required 09/19/2023 09/18/2024 1 1 * Cardiovascular (Routine) - Authorized Specialty Diagnoses / Procedures Referred By Ashtyn dobson Referred To Contact Diagnoses Persistent atrial fibrillation (CMS/HCC) Procedures ECG 12 Lead Debbie Mac MD [address], [address] [place] [address] Referral ID Status Reason Start Date Expiration Date V isits Requested Visits Authorized [id number] Authorized 09/19/2023 09/18/2024 1 1 * Consultation (Routine) - Authorized Specialty Diagnoses / Procedures Referred By Ashtyn dobson Referred To Contact Cardiology Diagnoses Persistent atrial fibrillation (CMS/HCC) 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 Pt. Name: Lesa Golden Admitted: 07/26/2020 Discharged: [...] Mac MD to review order sent to [facility] for pft ast tsh onlyLESA GOLDEN is being seen for a 15 week follow-up of.LESA GOLDEN is being seen for a 4 month follow-up of. LESA GOLDEN is being seen for a 4-5 month follow-up of.Patient is here today for an EKG ordered by Dr. Debbie Mac MD due to afib. Dr. iJmena Smith MD in suite. Patient has a [...] She was recently in the hospital at [facility] for Afib and was taken off Metoprolol [...] Referral Specialty Diagnoses / Procedures Referred By Ashtyn t Referred To Contact Cardiology Diagnoses Chronic diastolic heart failure (CMS/HCC) Essential hypertension, benign Dyspnea, unspecified type Procedures Transthoracic Echo (TTE) Complete AL ECHO TRANSTHORC R-T 2D W/WO M-MODE REC F-UP/LMTD AL DOP ECHOCARD COLOR FLOW VELOCITY MAPPING AL DOP ECHOCARD PULSE WAVE W/SPECTRAL F-UP/LMTD STD Debbie Mac MD [address] [place] [address], [address] [place] [phone] Referral ID Status Reason Start Date Expiration Date Visits Requested Visits Authorized [id number] Pending Review Perform Procedure 11/27/2023 1 1 Specialty Diagnoses / Procedures Referred By Ashtyn t Referred To Contact Cardiology Diagnoses Persistent atrial fibrillation (CMS/HCC) 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) Chronic diastolic heart failure (CMS/HCC) Essential hypertension, benign Procedures Follow Up In Cardiology Debbie Mac MD [address] [place] [address], [address] [address] Referral ID Status Reason Start Date Expiration Date V isits Requested Visits Authorized [id number] Authorized 05/31/2023 11/27/2023 1 1 Specialty Diagnoses / Procedures Referred By Ashtyn t Referred To Contact Diagnoses Persistent atrial fibrillation (CMS/HCC) 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) Procedures ECG 12 Lead Debbie Mac MD [address] [place] [address], [address] [address] Referral ID Status Reason Start Date Expiration Date V isits Requested Visits Authorized [id number] Pending Review 05/31/2023 11/27/2023 1 1 Additional Source Comments INFORMATION SOURCE (unrecogn ized section and content) DATE CREATED AUTHOR 08/08/2020 [facility] DATE CREATED AUTHOR AUTHOR'S ORGANIZ ATION 10/10/2021 Wily Garzaus [facility] DATE CREATED AUTHOR AUTHOR'S ORGANIZ ATION 12/28/2022 [facility] DATE CREATED AUTHOR AUTHOR'S ORGANIZ ATION 01/04/2023 [facility] DATE CREATED AUTHOR AUTHOR'S ORGANIZ ATION 01/30/2023 [employer] DATE CREATED AUTHOR AUTHOR'S ORGANIZ ATION 03/09/2023 [facility] DATE CREATED AUTHOR AUTHOR'S ORGANIZ ATION 09/10/2023 [facility] DATE CREATED AUTHOR AUTHOR'S ORGANIZ ATION 01/16/2024 [facility] EPIC DATE CREATED AUTHOR AUTHOR'S ORGANIZ ATION 02/10/2024 [facility] DATE CREATED AUTHOR AUTHOR'S ORGANIZ ATION 03/14/2024 [facility] DATE CREATED AUTHOR AUTHOR'S ORGANIZ ATION 03/19/2024 [facility] [employer] Teams (unrecognized sec tion and content) Team [...] MD Other Provider Active Cristiana Dior , [facility] Other Provider Active Yessy Ackerman MD Other Provider Active Sam Dukes , DO Attending Provider Active Team Status: Inactive Member Role Status Dates [place] العلي , DO Primary Care Provider, Attending Pr ovider Active Team Status: Inactive Member Role Status Dates [place] العلي , DO Primary Care Provider Active Wilbur Watson , Attending Provider Active Supervisor Rolling Room Relationship Specialty Start Date End Date [place] العلي, DO [address] [place] [phone] PCP - General 08/20/99 Supervisor [employer] Room Relationship Specialty Start Date End Date [place] العلي, DO [address] [place] [id number] PCP - General Internal Medicine 08/09/23 Supervisor [employer] Room Relationship Specialty Start Date End Date [place] العلي, DO [address] [place] [address] PCP - General Internal Medicine 08/09/23 Team [...] Attending Provider Active Start: 2023 End: 2023 Supervisor [employer] Room Relationship Specialty Start Date End Date [place] العلي DO [address] [place] [address] [address] [place] [address] PCP - General Internal Medicine 08/09/23 Debbie Mac MD [address] [facility], [address] [place] [address] Consulting Physician Cardiology 09/10/23 Team Status: Inactive [...] Role Status Dates [place] العلي DO Primary Salazar Provide r, Attending Provider Active Start: November [...] Start: M ay 2023 Cristiana Dior , [facility]- Other Provider Active Sta rt: January 18, [...] End: January 20, 2024 Cristiana Dior , [facility] Other Provider Active Sta rt: January 18, 2024 End: January 20, 2024 Supervisor Rolling Room Relationship Specialty Start Date End Date [place] العلي DO [address] [place] [address] PCP - General Internal Medicine 08/09/23 Debbie Mac MD [address] [facility], [address] [place] [address] Consulting Physician Cardiology 09/10/23 Team Status: Active [...] Procedures ECG 12 Lead Debbie Mac MD [address] [place] [address], [address] [address] Referral ID Status Reason Start Date Expiration Date V isits Requested Visits Authorized [id number] Pending Review 05/31/2023 11/27/2023 1 1 Specialty Diagnoses / Procedures Referred By Ashtyn dobson Referred To Contact Cardiology Diagnoses Chronic diastolic heart failure (CMS/HCC) Essential hypertension, benign Dyspnea, unspecified type Procedures Transthoracic Echo (TTE) Complete AL ECHO TRANSTHORC R-T 2D W/WO M-MODE REC F-UP/LMTD AL DOP ECHOCARD COLOR FLOW VELOCITY MAPPING AL DOP ECHOCARD PULSE WAVE W/SPECTRAL F-UP/LMTD STD Debbie Mac MD [address] [place] [address], [address] [phone] Referral ID Status Reason Start Date Expiration Date Visits Requested Visits Authorized [id number] Authorized Perform Procedure 11/27/2023 1 1 Reason Comments Follow-up 4 month Specialty Diagnoses / Procedures Referred By Ashtyn dobson Referred To Contact Cardiology Diagnoses Persistent atrial fibrillation (CMS/HCC) 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) Chronic diastolic heart failure (CMS/HCC) Essential hypertension, benign Procedures Follow Up In Cardiology Debbie Mac MD [address] [place] [address], [address] [address] Referral ID Status Reason Start Date Expiration Date V isits Requested Visits Authorized [id number] Authorized 05/31/2023 11/27/2023 1 1 Reason Comments ekg visit Specialty Diagnoses / Procedures Referred By Contac t Referred To Contact Diagnoses Dyspnea, unspecified type Persistent atrial fibrillation (Multi) Procedures ECG 12 Lead Debbie Mac MD [address] [facility], [facility] [address] [place] [address] Referral ID Status Reason Start Date Expiration Date V isits Requested Visits Authorized [id number] Authorized 01/17/2024 01/16/2025 1 1 FOR RECORDS [...] BE BASED ON THE PRIMARY CLINICAL RECORDS. [employer] provides no warranty or guarantee of the accuracy or completeness of information in this document.
[2024-03-21 05:42] LABS: Anion Gap 12.2; BUN Creatinine Ratio 22.4; Carbon Dioxide 25.7 mmol/L (21.0-32.0); Chloride 105 mmol/L (98-107); Estimated GFR (African America 54 (>=60); Estimated GFR (Non-African Ame 45 (>=60); Glucose 127 mg/dL (74-106); Potassium 3.9 mmol/L (3.5-5.1); Sodium 139 mmol/L (136-145)
[2024-03-21] MEDS: ONDANSETRON PF 4 MG/2 ML VIAL IV (05:54)
[2024-03-21] MEDS: MORPHINE SULFATE 2 MG/ML SYRINGE IV (05:54)
[2024-03-21 07:35] LABS: Troponin I High Sensitivity 96.6 pg/mL (4.0-51.3)
[2024-03-21] MEDS: ASPIRIN 81 MG TAB.CHEW 324 MG PO (08:12)
[2024-03-21] MEDS: HEPARIN SODIUM (PORCINE) 5,000 UNIT/ML VIAL 2500 UNIT IV (08:34)
[2024-03-21] MEDS: HEPARIN SODIUM,PORCINE/D5W 25,000 UNIT/500 ML IV.SOLN 15 UNIT IV (08:34)
--- NOTE | 2024-03-21 08:54 | PC.NURSE ---
spoke with patient's son, Fahad, on the phone per patient's request to update him on his mother's plan of care.
--- NOTE | 2024-03-21 14:32 | PC.NURSE ---
1400 - pt got approx 88ml of heparin gtt before leaving this facility
== END 2024-03-21 14:00 | disposition short-term general hospital (02) ==
PROVIDERS: Emergency Medicine; Emergency Provider Emergency Medicine Emergency Medical Services; PCP Internal Medicine
DX: I21.4 Non-ST elevation (NSTEMI) myocardial infarction (principal)
CPT/HCPCS: 36415; 71045; 80048; 84484; 85025; 93005; 96365; 96366; 96375; 96376; 99285; J1644; J2270; J2405

== ENCOUNTER 2024-04-07 10:31 | Day surgery (SDC) | payer OTHER, SELFPAY ==
[2024-04-07 10:59] VITALS: BP 114/66; PULSE 77; TEMP 36.7; O2SAT 98
[2024-04-07] MEDS: 0.9 % SODIUM CHLORIDE 10 ML SYRINGE - SALINE FLUSH INJ (11:51)
[2024-04-07] MEDS: IOHEXOL 240 MG/ML - 10 ML VIAL INJ (11:51)
[2024-04-07] MEDS: BUPIVACAINE HCL 0.25% PF 25 MG/10 ML VIAL INJ (11:51)
[2024-04-07] MEDS: LIDOCAINE HCL 2% 400 MG/20 ML MDV 3 ML INJ (11:52)
[2024-04-07] MEDS: TRIAMCINOLONE ACETONIDE 40 MG/ML VIAL 80 MG INJ (11:52)
[2024-04-07 11:53] VITALS: BP 161/71; BP 182/73; PULSE 70; PULSE 76; O2SAT 97; O2SAT 98
--- NOTE | 2024-04-07 11:54 | P.ON_ITS ---
Date of procedure: 04/07/24 Pre-op diagnosis: Pain due to lumbar stenosis with neurogenic claudication Post-op diagnosis: same as pre-op Procedure: Procedure: Right L4-5, L5-S1 transforaminal epidural steroid injection Medications: Bupivacaine 0.25% 2cc, lidocaine 2% 1cc, kenalog 80mg The patient was seen and examined in the preoperative holding area.? Informed consent was obtained and placed on the chart.? Patient was brought to the medical procedure unit and placed in the prone position where a timeout was completed verifying the correct patient, procedure site, position, and planned special equipment using sterile aseptic technique.? Under direct fluoroscopic visualization a 25-gauge Quincke tipped spinal needle was advanced to the designated neural foramen where contrast dye was injected to show adequate spread.? The needle was inserted at level right L4-5. There was no evidence of vascular or adverse uptake.? Epidural spread was appreciated.? The above- mentioned injectate was then placed in a 1.5 mL aliquot preceded by negative aspiration.? The needle was removed. The needle was inserted and the procedure repeated at level right L5-S1.? The surgery site was covered.? Patient was taken to the postprocedural recovery area and monitored for an appropriate length of time before found suitable for discharge in the accompaniment of a responsible adult. Anesthesia: Local Surgeon: Yesica Astudillo Pathology: none sent Condition: stable Disposition: no change
== END 2024-04-07 11:59 | disposition home or self-care (01) ==
LOC: SURGOUT 10:32
PROVIDERS: PCP Internal Medicine; Visit Provider Anesthesiology
DX: M48.062 Spinal stenosis, lumbar region with neurogenic claudication (principal)
CPT/HCPCS: 64483; 64484; J0665; J3301; Q9966

== ENCOUNTER 2024-04-23 12:27 | Outpatient (OUT) | payer OTHER, SELFPAY ==
--- NOTE | 2024-04-23 12:54 | P.CN_ITS ---
Consult Note: HPI Data of Consult Patient: known to practice within the last 3 years Consult date: 10/15/23 Requesting Physician: Velvet Jimenez NP Primary Care Provider: Chester Mehta DO Consult Narrative Reason for consult: Low back pain, right leg pain Narrative: 83yof who presents for evaluation. Longstanding low back pain with weakness into bilateral legs for many years, now worsening in past several months. Denies provoking event. Cannot take NSAIDs because of blood thinner. Has engaged in >6 weeks of provider directed home exercise program, with little benefit. Most recent MRI showing multilevel DDD, lumbar facet arthropathy, and neuroforaminal stenosis. pain today 0/10, noting significant relief from right L4/5 L5/S1 TFESI >90% improvement ongoing. Patient continues to have intermittent moderate to severe right SIJ pain. Continuing to f/u with PCP and cardiology, on xarelto, for a-fib and SOB. cc:: CC: Velvet Jimenez NP Review of Systems ROS Status of ROS 10 or more systems reviewed and unremark able except as noted in history and below Musculoskeletal Reports: joint pain PFSH PFSH Medical History (Updated 03/21/24 @ 06:21 by Jordi Barragan MD) Diastolic heart failure ?I50.30 - Unspecified diastolic (congestive) heart failure (ICD-10) Depression ?F32.A - Depression, unspecified (ICD-10) Diaphragmatic hernia ?K44.9 - Diaphragmatic hernia without obstruction or gangrene (ICD-10) Lumbar stenosis with neurogenic claudication ?M48.062 - Spinal stenosis, lumbar region with neurogenic claudication (ICD- 10) Lumbar spondylosis ?M47.816 - Spondylosis without myelopathy or radiculopathy, lumbar region (ICD-10) Sacroiliitis ?M46.1 - Sacroiliitis, not elsewhere classified (ICD-10) S/P extracorporeal shock wave therapy ?Z98.890 - Other specified postprocedural states (ICD-10) Kidney stone ?N20.0 - Calculus of kidney (ICD-10) Low back pain ?M54.50 - Low back pain, unspecified (ICD-10) Neck pain ?M54.2 - Cervicalgia (ICD-10) Fibromyalgia ?M79.7 - Fibromyalgia (ICD-10) Hiatal hernia ?K44.9 - Diaphragmatic hernia without obstruction or gangrene (ICD-10) SOB (shortness of breath) ?R06.02 - Shortness of breath (ICD-10) High cholesterol ?E78.00 - Pure hypercholesterolemia, unspecified (ICD-10) Hypertension ?I10 - Essential (primary) hypertension (ICD-10) Surgical History Hx laparoscopic cholecystectomy ?Z90.49 - Acquired absence of other specified parts of digestive tract (ICD- 10) S/P hernia repair ?Z98.890 - Other specified postprocedural states (ICD-10) ?Z87.19 - Personal history of other diseases of the digestive system (ICD-10) Social History Highest level of school completed/degree received: high school graduate Meds Home Medications and Allergies Home Medications ?Medication ?Instructions ?Recorded ?Confirmed ?Type acetaminophen 325 mg capsule 325 mg PO Q6H PRN pain 10/15/23 04/07/24 History (Tylenol) atorvastatin 40 mg tablet 40 mg PO .QHS 10/15/23 04/07/24 History calcium 600 mg capsule 600 mg PO QDAY 10/15/23 04/07/24 History cholecalciferol (vitamin D3) 125 125 mcg PO DAILY 10/15/23 04/07/24 History mcg (5,000 unit) tablet (Vitamin D3) rivaroxaban 15 mg tablet (Xarelto) 15 mg PO .qhs 10/15/23 04/07/24 History ropinirole 1 mg tablet 1 mg PO .HS 10/15/23 04/07/24 History escitalopram oxalate 10 mg tablet 10 mg PO .QHS 02/07/24 04/07/24 History furosemide 20 mg tablet 20 mg PO .QD 02/07/24 04/07/24 History sotalol 120 mg tablet 120 mg PO BID 02/07/24 04/07/24 History diltiazem HCl 180 mg 180 mg PO DAILY #30 caps 02/08/24 03/21/24 Rx capsule,extended release 24 hr digoxin 125 mcg (0.125 mg) tablet 0.125 mg PO Q12H ATRIAL 03/21/24 04/07/24 History FIBRILLATION sotalol 80 mg tablet mg 03/21/24 History Allergies Allergy/AdvReac Type Severity Reaction Status Date / Time fentanyl Allergy Unknown Unknown Verified 04/07/24 11:06 Exam Constitutional Documenting provider has reviewed patient's vital signs: yes Common normals: no apparent distress, oriented x3, healthy appearing, alert and well nourished General appearance: cooperative HENMT Common normals: normocephalic, hearing grossly normal bilaterally and moist oral mucous membranes Head and scalp: normocephalic Eye Common normals: PERRL Pupil: PERRL Neck & C-Spine Common normals: full ROM General: normal visual inspection Chest Common normals: inspection of chest normal Respiratory Common normals: normal respiratory effort, no retractions and no use of accessory muscles Effort & inspection: labored Cardio Common normals: regular rate and regular rhythm GI Common normals: Normal to inspection, nondistended, normoactive bowel sounds present, soft to palpation and non-tender Back & Pelvis Lumbar spine/lower back: ROM limited, pain with ROM and straight leg raise negative bilaterally Sacroiliac joints: SI joint(s) abnormal Other: right SIJ positive lizzy(patricks), gaenslens, thigh thrust, compression test sensation intact BLE strength 5/5 in BLE Extremity Common normals: normal to inspection and full ROM Neuro Common normals: oriented x3, CN's II-XII intact bilaterally, moves all extremities, no focal motor deficits, no sensory deficits noted, deep tendon reflexes 2+ bilaterally and gait normal Sensorium/orientation: alert Motor exam: strength 5/5 throughout and no movement abnormalities noted Psych Common normals: mental status grossly normal, thought process normal, cooperative, affect normal, speech normal and activity/motor behavior normal Appearance: grossly normal Speech: normal speech Thought process: normal thought process Results Additional Findings Additional findings: If on a controlled substance or opioids, I have checked an [place] report on this patient and there are no aberrancies noted in the prescribing history.??If on a controlled substance or opioid a drug screen was completed and reviewed within the last year, and if there has not been a drug screen completed we ordered one today to monitor higher risk, state monitored pain medication use. As part of providing excellent, safe, comprehensive care, the following was completed at our patient's visit: 1. A medication reconciliation and review to ensure accurate knowledge of current/active medications, including asking our patients to inform us about any [id number] medications or herbal remedies/nutritional supplements/alternative remedies. 2. A review to specifically ensure our patients have had annual screening for screening for depression, screening for tobacco use, and screening for unhealthy alcohol use. For concerning screenings had a discussion with the patient, provided patient education, and recommended follow-up with primary care provider when appropriate. If patient noted with a risk of falling, they received education on strength, gait, and balance training to prevent future risk of falling. Assessment and Plan Assessment and Plan (1) Lumbar stenosis with neurogenic claudication: (2) Sacroiliitis: (3) Lumbar spondylosis: Plan right L4-5 L5-S1 TFESI providing significant ongoing relief right SIJ injection under fluoroscopy defered at this time, pain well controlled per pt f/u 3 months, sooner if needed
== END 2024-04-23 12:28 | disposition home or self-care (01) ==
LOC: PM 12:28
PROVIDERS: PCP Internal Medicine; Visit Provider Nurse Practitioner
DX: M48.062 Spinal stenosis, lumbar region with neurogenic claudication (principal); M46.1 Sacroiliitis, not elsewhere classified; M47.816 Spondylosis without myelopathy or radiculopathy, lumbar region
CPT/HCPCS: G0463

== ENCOUNTER 2024-05-28 15:09 | Outpatient (OUT) | payer OTHER, SELFPAY ==
[2024-05-28 16:15] LABS: Digoxin 2.1 ng/mL (0.9-2.0)
[2024-05-28 16:21] LABS: Anion Gap 15.4; BUN Creatinine Ratio 13.4; Calcium 9.2 mg/dL (8.5-10.1); Carbon Dioxide 27.8 mmol/L (21.0-32.0); Chloride 97 mmol/L (98-107); Estimated GFR (African America 36 (>=60 mL/min/1.73m^2); Estimated GFR (Non-African Ame 30 (>=60 mL/min/1.73m^2); Glucose 178 mg/dL (74-106); Potassium 3.2 mmol/L (3.5-5.1); Sodium 137 mmol/L (136-145)
== END 2024-05-28 15:10 | disposition home or self-care (01) ==
PROVIDERS: PCP Internal Medicine; Visit Provider Internal Medicine
DX: I50.33 Acute on chronic diastolic (congestive) heart failure (principal); N18.31 Chronic kidney disease, stage 3a; Z79.899 Other long term (current) drug therapy
CPT/HCPCS: 36415; 80048; 80162; 83880

== ENCOUNTER 2024-07-21 13:45 | Emergency (ER) | payer OTHER, SELFPAY ==
[2024-07-21] VITALS (58 sets, daily range): BP systolic 90–134; BP diastolic 54–90; PULSE 95–116; TEMP 36.6; O2SAT 86–99; BMI 28.3
--- NOTE | 2024-07-21 13:50 | XR_ITS ---
The [address] [address] Patient Name: AUSTIN GOLDEN MRN: [id number] date: 1940 Sex: F Assigned Patient Location: ER Current Patient Location: ER Accession/Order Number: [id number] Exam Date: 07/21/2024 14:13 Report Date: 07/21/2024 14:28 At the request of: DENAE SEE Procedure: XR chest 1V EXAMINATION: XR chest 1V HISTORY: chest pain COMPARISON: XR chest 03/21/2024, 02/08/2024 FINDINGS: LUNGS: Mild opacity within lateral left lung base obscuring the lower heart margin and partially obscuring the lateral diaphragm margin. VASCULATURE: No increased pulmonary vasculature. PLEURA: No pneumothorax, effusion, or pleural thickening. CARDIAC: No cardiomegaly or cardiac silhouette abnormality. MEDIASTINUM: No visible mass or adenopathy. BONES: No fracture or visible bone lesion. OTHER: Stable cardiac pacer. XR/XR chest 1V IMPRESSION: 1. Mild left basilar opacities suspected to represent a prominent pericardial fat pad. Mild infiltrates are felt less likely. Electronically authenticated by: JUANA MICHAELS Date: 07/21/2024 14:28
--- NOTE | 2024-07-21 13:50 | ECG_ITS ---
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
--- NOTE | 2024-07-21 13:51 | ED_ITS ---
HPI - Chest Pain General Chief Complaint: Chest Pain Stated Complaint: GENERAL WEAKNESS Time Seen by Provider: 07/21/24 13:49 History of Present Illness HPI narrative: 83-year-old female presents for chest pain. She has had it for 3 days continuously and it is in the lower sternal area. She also feels short of breath. She has had no vomiting or trauma or fever. She has not had a cough. It feels like a pressure. She was given 4 baby aspirin and a nitroglycerin by the paramedics. Related Data Home Medications ?Medication ?Instructions ?Recorded ?Confirmed acetaminophen 325 mg capsule 975 mg PO Q6H PRN pain 10/15/23 07/21/24 (Tylenol) atorvastatin 40 mg tablet 40 mg PO .QHS 10/15/23 07/21/24 rivaroxaban 15 mg tablet (Xarelto) 15 mg PO .qhs 10/15/23 07/21/24 ropinirole 1 mg tablet 1 mg PO .HS 10/15/23 07/21/24 furosemide 20 mg tablet 20 mg PO .QD 02/07/24 07/21/24 digoxin 125 mcg (0.125 mg) tablet 0.125 mg PO Q12H ATRIAL 03/21/24 07/21/24 FIBRILLATION amiodarone 200 mg tablet 200 mg PO Q12H 07/21/24 07/21/24 bupropion HCl 300 mg 24 hr tablet, 300 mg PO QAM 07/21/24 07/21/24 extended release calcium 600 mg (as 1 tab PO DAILY 07/21/24 07/21/24 carbonate)-vitamin D3 20 mcg (800 unit) tablet cholecalciferol (vitamin D3) 25 25 mcg PO DAILY 07/21/24 07/21/24 mcg (1,000 unit) capsule usambsqltqus-tqryrvdv-mqoh 1 tab PO QAM 07/21/24 07/21/24 fumarate 18 mg-folic acid 400 mcg tablet (One-A-Day Women's Complete) pantoprazole 40 mg tablet,delayed 40 mg PO Q12H 07/21/24 07/21/24 release Previous Rx's ?Medication ?Instructions ?Recorded diltiazem HCl 180 mg 180 mg PO DAILY #30 caps 02/08/24 capsule,extended release 24 hr Allergies Allergy/AdvReac Type Severity Reaction Status Date / Time No Known Drug Allergies Allergy Verified 07/21/24 13:56 Review of Systems ROS Narrative A ten point review of systems is negative except as noted above. [facility] Medical History (Updated 07/21/24 @ 15:00 by Jordi Barragan MD) Diastolic heart failure ?I50.30 - Unspecified diastolic (congestive) heart failure (ICD-10) Depression ?F32.A - Depression, unspecified (ICD-10) Diaphragmatic hernia ?K44.9 - Diaphragmatic hernia without obstruction or gangrene (ICD-10) Lumbar stenosis with neurogenic claudication ?M48.062 - Spinal stenosis, lumbar region with neurogenic claudication (ICD- 10) Lumbar spondylosis ?M47.816 - Spondylosis without myelopathy or radiculopathy, lumbar region (ICD-10) Sacroiliitis ?M46.1 - Sacroiliitis, not elsewhere classified (ICD-10) S/P extracorporeal shock wave therapy ?Z98.890 - Other specified postprocedural states (ICD-10) Kidney stone ?N20.0 - Calculus of kidney (ICD-10) Low back pain ?M54.50 - Low back pain, unspecified (ICD-10) Neck pain ?M54.2 - Cervicalgia (ICD-10) Fibromyalgia ?M79.7 - Fibromyalgia (ICD-10) Hiatal hernia ?K44.9 - Diaphragmatic hernia without obstruction or gangrene (ICD-10) SOB (shortness of breath) ?R06.02 - Shortness of breath (ICD-10) High cholesterol ?E78.00 - Pure hypercholesterolemia, unspecified (ICD-10) Hypertension ?I10 - Essential (primary) hypertension (ICD-10) Surgical History Hx laparoscopic cholecystectomy ?Z90.49 - Acquired absence of other specified parts of digestive tract (ICD- 10) S/P hernia repair ?Z98.890 - Other specified postprocedural states (ICD-10) ?Z87.19 - Personal history of other diseases of the digestive system (ICD-10) Social History Highest level of school completed/degree received: high school graduate Little interest or pleasure in doing things: not at all Feeling down, depressed, or hopeless: not at all Exam Narrative Exam Narrative: Nurses note and vital signs reviewed and patient is not hypoxic. General: The patient appears uncomfortable and in no acute respiratory distress Skin: Warm, dry, no pallor noted. There is no rash noted. Head: Normocephalic, atraumatic Eye: Normal conjunctiva, no drainage Ears, Nose, Mouth, and Throat: oral mucosa is moist. Nares patent. Cardiovascular: Mildly tachycardic and irregularly irregular Respiratory: Patient is in no distress, no accessory muscle use, lungs are clear to auscultation, no wheezing, rales or rhonchi Back: non-tender GI: Soft and nontender Musculoskeletal: The patient has no evidence of calf tenderness, no pitting edema, symmetrical pulses noted bilaterally Neurological: A&O, normal speech Psychiatric: Cooperative Constitutional Vital Signs, click to edit/add: Last Vital Signs Temp 97.8 F 07/21/24 13:50 Pulse 106 H 07/21/24 14:50 Resp 18 07/21/24 14:50 BP 117/74 07/21/24 14:45 Pulse Ox 94 L 07/21/24 14:50 O2 Del Method Room Air 07/21/24 13:50 Course Vital Signs Vital signs: Vital Signs Temperature 97.8 F 07/21/24 13:50 Pulse Rate 104 H 07/21/24 13:50 Respiratory Rate 26 H 07/21/24 13:50 Blood Pressure 97/79 07/21/24 13:50 Pulse Oximetry 98 07/21/24 13:50 Oxygen Delivery Method Room Air 07/21/24 13:50 Temperature 97.8 F 07/21/24 13:50 Pulse Rate 106 H 07/21/24 14:50 Respiratory Rate 18 07/21/24 14:50 Blood Pressure 117/74 07/21/24 14:45 Pulse Oximetry 94 L 07/21/24 14:50 Oxygen Delivery Method Room Air 07/21/24 13:50 MDM - Chest Pain MDM Narrative Medical decision making narrative: Troponin is 299.5. 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 I have spoken to the hospitalist there and the patient is excepted. She is stable and agreeable for transfer. She has already received aspirin here. She is hemodynamically stable. Treatment diagnosis and disposition were discussed with the patient. She was not given heparin because she is on Xarelto. Differential Diagnosis Differential diagnosis: Likely pneumothorax, unstable angina pectoris, atypical chest pain, st elevation myocardial infarction, chest pain and other (NSTEMI) Lab Data Attestation: I reviewed the patient's lab results. Labs: Lab Results 07/21/24 Range/Units 13:54 WBC 11.8 H (4.0-11.0) 10^3/uL RBC 4.38 (4.20-5.40) 10^6/uL Hgb 13.4 (12.0-16.0) g/dL Hct 41.6 (36.0-48.0) % MCV 95.0 (81.0-99.0) fL MCH 30.6 (26.7-34.0) pg MCHC 32.2 (29.9-35.2) g/dL RDW 13.8 (11.0-15.0) % Plt Count 304 (150-450) 10^3/uL MPV 10.2 (9.5-13.5) fL Neut % (Auto) 78.0 H (43.0-75.0) % Lymph % (Auto) 13.2 L (20.5-60.0) % Gonzales % (Auto) 6.7 (1.7-12.0) % Eos % (Auto) 1.4 (0.9-7.0) % Baso % (Auto) 0.4 (0.2-2.0) % Neut # (Auto) 9.2 H (1.4-6.5) 10^3/uL Lymph # (Auto) 1.6 (1.2-3.8) 10^3/uL Gonzales # (Auto) 0.8 (0.3-0.8) 10^3/uL Eos # (Auto) 0.2 (0.0-0.7) 10^3/uL Baso # (Auto) 0.1 (0.0-0.1) 10^3/uL Abs Immat Gran (auto) 0.04 H (0.00-0.03) 10^3/uL Imm/Tot Granulo (auto) 0.3 (0.0-0.5) % Sodium 142 (136-145) mmol/L Potassium 3.9 (3.5-5.1) mmol/L Chloride 103 (98-107) mmol/L Carbon Dioxide 25.6 (21.0-32.0) mmol/L Anion Gap 17.3 BUN 18.0 (7.0-18.0) mg/dL Creatinine 1.65 H (0.55-1.02) mg/dL Est GFR ( Amer) 36 L (>=60 mL/min/1.73m^2) Est GFR (Non-Af Amer) 30 L (>=60 mL/min/1.73m^2) BUN/Creatinine Ratio 10.9 Glucose 106 (74-106) mg/dL Calcium 10.1 (8.5-10.1) mg/dL Total Bilirubin 0.8 (0.2-1.0) mg/dL Direct Bilirubin 0.3 H (0.0-0.2) mg/dL AST 40 H (15-37) U/L ALT 45 (14-59) U/L Alkaline Phosphatase 73 (46-116) U/L Troponin I High Sens 299.5 H* (4.0-51.3) pg/mL Total Protein 6.6 (6.4-8.2) g/dL Albumin 3.3 L (3.4-5.0) g/dL Globulin 3.3 g/dL Albumin/Globulin Ratio 1.0 Amylase 21 L (25-115) U/L Lipase 23.0 (16.0-77.0) U/L Imaging Data Chest x-ray: Radiologist's impression: ITS Impressions Chest X-Ray 07/21/24 13:50 IMPRESSION: 1. Mild left basilar opacities suspected to represent a prominent pericardial fat pad. Mild infiltrates are felt less likely. Electronically authenticated by: JUANA MICHAELS Date: 07/21/2024 14:28 ECG Data Attestation: I personally reviewed and interpreted this ECG as follows: (EKG on my interpretation shows atrial fibrillation with a rate of 103.) Heart Score History: Highly Suspicious ECG: NS Repolarization Age: >65 years Risk Factors: >3 Risk Factors/ HX of CAD:2 Troponin: >3X Normal Limit Total Heart Score Recommendations & Risks:: 9 Critical Care Time Critical Care Time Critical Care Time: Yes Total Critical Care Time: 45 Attestation: Due to the high probability of sudden and clinically significant deterioration in the patient's condition he/she required the highest level of my preparedness to intervene urgently I provided critical care time including documentation time, medication orders and management, reevaluation, vital sign assessment, ordering and reviewing of lab tests, ordering and reviewing of x-ray studies, and admission orders. Aggregate critical care time is 45 minutes including only time during which I was engaged in work directly related to his/her care and did not include time spent treating other patients simultaneously. Discharge Plan Discharge Chief Complaint: Chest Pain Clinical Impression: Non-ST elevation ND (NSTEMI) Patient Disposition: [facility] Time of Disposition Decision: 15:00 Discharge Location: [facility] Condition: Fair Mode of Transportation: EMS
[2024-07-21 14:01] LABS: Basophils Absolute Auto 0.1 10^3/uL (0.0-0.1); Basophils Percent Auto 0.4 % (0.2-2.0); Eosinophils Absolute Auto 0.2 10^3/uL (0.0-0.7); Eosinophils Percent Auto 1.4 % (0.9-7.0); Hematocrit 41.6 % (36.0-48.0); Hemoglobin 13.4 g/dL (12.0-16.0); Immature Granulocytes Abs Auto 0.04 10^3/uL (0.00-0.03); Immature Granulocytes Pct Auto 0.3 % (0.0-0.5); Lymphocytes Absolute Auto 1.6 10^3/uL (1.2-3.8); Lymphocytes Percent Auto 13.2 % (20.5-60.0); Mean Corpuscular HGB Conc 32.2 g/dL (29.9-35.2); Mean Corpuscular Hemoglobin 30.6 pg (26.7-34.0); Mean Platelet Volume 10.2 fL (9.5-13.5); Monocytes Absolute Auto 0.8 10^3/uL (0.3-0.8); Monocytes Percent Auto 6.7 % (1.7-12.0); Neutrophils Absolute Auto 9.2 10^3/uL (1.4-6.5); Platelet Count 304 10^3/uL (150-450); Red Blood Count 4.38 10^6/uL (4.20-5.40); Red Cell Distribution Width 13.8 % (11.0-15.0); White Blood Count 11.8 10^3/uL (4.0-11.0)
[2024-07-21 14:17] LABS: Alanine Aminotransferase 45 U/L (14-59); Albumin Level 3.3 g/dL (3.4-5.0); Alkaline Phosphatase 73 U/L (46-116); Amylase 21 U/L (25-115); Anion Gap 17.3; Aspartate Amino Transferase 40 U/L (15-37); BUN Creatinine Ratio 10.9; Bilirubin Direct 0.3 mg/dL (0.0-0.2); Bilirubin Total 0.8 mg/dL (0.2-1.0); Calcium 10.1 mg/dL (8.5-10.1); Carbon Dioxide 25.6 mmol/L (21.0-32.0); Chloride 103 mmol/L (98-107); Estimated GFR (African America 36 (>=60 mL/min/1.73m^2); Estimated GFR (Non-African Ame 30 (>=60 mL/min/1.73m^2); Globulin 3.3 g/dL; Glucose 106 mg/dL (74-106); Potassium 3.9 mmol/L (3.5-5.1); Sodium 142 mmol/L (136-145); Total Protein 6.6 g/dL (6.4-8.2)
[2024-07-21 14:26] LABS: Troponin I High Sensitivity 299.5 pg/mL (4.0-51.3)
[2024-07-21] MEDS: MORPHINE SULFATE 2 MG/ML SYRINGE IV (14:56)
[2024-07-21] MEDS: ONDANSETRON 4 MG RAPDIS TABLET SL (15:30)
[2024-07-21] MEDS: MORPHINE SULFATE 4 MG/ML VIAL IV (16:37)
[2024-07-21] MEDS: PANTOPRAZOLE SODIUM 40 MG VIAL IV (18:12)
[2024-07-21] MEDS: PROMETHAZINE HCL 12.5 MG in 0.9 % SODIUM CHLORIDE 50 ML 202 MG IV (18:12)
[2024-07-21] MEDS: 0.9 % SODIUM CHLORIDE 1,000 ML 75 ML IV (18:12)
== END 2024-07-21 20:37 | disposition short-term general hospital (02) ==
PROVIDERS: Emergency Provider Emergency Medicine; PCP Internal Medicine
DX: I21.4 Non-ST elevation (NSTEMI) myocardial infarction (principal); R06.02 Shortness of breath; Z90.49 Acquired absence of other specified parts of digestive tract; Z79.01 Long term (current) use of anticoagulants
CPT/HCPCS: 36415; 71045; 80048; 80076; 82150; 83690; 84484; 85025; 93005; 96365; 96375; 96376; 99285; J2250; J2270; Q0162

== ENCOUNTER 2024-08-04 10:33 | Day surgery (SDC) | payer OTHER, SELFPAY ==
[2024-08-04 10:52] VITALS: BP 141/87; PULSE 82; TEMP 36.7; O2SAT 96
[2024-08-04 11:15] VITALS: BP 163/80; PULSE 78; O2SAT 93
[2024-08-04 11:16] VITALS: BP 152/68; PULSE 78; O2SAT 94
[2024-08-04] MEDS: BUPIVACAINE HCL 0.25% PF 25 MG/10 ML VIAL 2 ML INJ (11:19)
[2024-08-04] MEDS: METHYLPREDNISOLONE ACETATE 40 MG/ML VIAL INJ (11:19)
[2024-08-04] MEDS: LIDOCAINE HCL 2% 400 MG/20 ML MDV INJ (11:19)
[2024-08-04] MEDS: IOHEXOL 240 MG/ML - 10 ML VIAL 12 MG INJ (11:19)
--- NOTE | 2024-08-04 11:19 | W.PM.PROCNOT ---
Date of procedure: 08/04/24 Pre-op diagnosis: Pain due to right sacroiliitis Post-op diagnosis: same as pre-op Procedure: Procedure: Right sacroiliac joint injection Medications: Bupivacaine 0.25% 3cc, depomedrol 40mg After informed consent was obtained, the patient was brought to the medical procedure unit and placed in the prone position, when a timeout was completed verifying correct patient, procedure, site, positioning, implant, and/or special equipment.? The skin overlying the area was prepped and draped in standard sterile fashion using alcohol.? A 25-gauge needle was inserted towards the right sacroiliac joint under direct fluoroscopic imaging.? Needle tip was advanced until the joint was encountered.? We instilled a total of 2 mL of solution.? Postoperatively needles were removed.? The patient tolerated the procedure well without complication.? The patient reported reduction in pain symptoms postoperatively. Anesthesia: Local Surgeon: Yesica Astudillo Pathology: none sent Condition: stable Disposition: no change
== END 2024-08-04 11:23 | disposition home or self-care (01) ==
LOC: SURGOUT 10:34
PROVIDERS: PCP Internal Medicine; Visit Provider Anesthesiology
DX: M46.1 Sacroiliitis, not elsewhere classified (principal)
CPT/HCPCS: 27096; J0665; J1010; Q9966

== ENCOUNTER 2024-09-01 12:30 | Outpatient (OUT) | payer OTHER, SELFPAY ==
--- NOTE | 2024-09-01 13:32 | PM.CN ---
Consult Note: HPI Data of Consult Patient: known to practice within the last 3 years Consult date: 09/01/24 Requesting Physician: Yesica Astudillo MD Primary Care Provider: Chester Mehta DO Consult Narrative Reason for consult: neck and midback pain Narrative: 83yof who presents for assessment. notes improvement in low back pain, now primarily neck and midback pain. notes cracking and popping. denies trauma. uses tylenol primarily. cc:: CC: Yesica Astudillo MD Review of Systems ROS Status of ROS 10 or more systems reviewed and unremarkable except as noted in history and below [facility] Medical History Diastolic heart failure ?I50.30 - Unspecified diastolic (congestive) heart failure (ICD-10) Depression ?F32.A - Depression, unspecified (ICD-10) Diaphragmatic hernia ?K44.9 - Diaphragmatic hernia without obstruction or gangrene (ICD-10) Lumbar stenosis with neurogenic claudication ?M48.062 - Spinal stenosis, lumbar region with neurogenic claudication (ICD-10) Lumbar spondylosis ?M47.816 - Spondylosis without myelopathy or radiculopathy, lumbar region (ICD-10) Sacroiliitis ?M46.1 - Sacroiliitis, not elsewhere classified (ICD-10) S/P extracorporeal shock wave therapy ?Z98.890 - Other specified postprocedural states (ICD-10) Kidney stone ?N20.0 - Calculus of kidney (ICD-10) Low back pain ?M54.50 - Low back pain, unspecified (ICD-10) Neck pain ?M54.2 - Cervicalgia (ICD-10) Fibromyalgia ?M79.7 - Fibromyalgia (ICD-10) Hiatal hernia ?K44.9 - Diaphragmatic hernia without obstruction or gangrene (ICD-10) SOB (shortness of breath) ?R06.02 - Shortness of breath (ICD-10) High cholesterol ?E78.00 - Pure hypercholesterolemia, unspecified (ICD-10) Hypertension ?I10 - Essential (primary) hypertension (ICD-10) Surgical History Hx laparoscopic cholecystectomy ?Z90.49 - Acquired absence of other specified parts of digestive tract (ICD-10) S/P hernia repair ?Z98.890 - Other specified postprocedural states (ICD-10) ?Z87.19 - Personal history of other diseases of the digestive system (ICD-10) Social History Highest level of school completed/degree received: high school graduate Little interest or pleasure in doing things: not at all Feeling down, depressed, or hopeless: not at all Meds Home Medications and Allergies Home Medications ?Medication ?Instructions ?Recorded ?Confirmed ?Type acetaminophen 325 mg capsule 975 mg PO Q6H PRN pain 10/15/23 08/04/24 History (Tylenol) atorvastatin 40 mg tablet 40 mg PO .QHS 10/15/23 08/04/24 History rivaroxaban 15 mg tablet (Xarelto) 15 mg PO .qhs 10/15/23 08/04/24 History ropinirole 1 mg tablet 1 mg PO .HS 10/15/23 08/04/24 History furosemide 20 mg tablet 20 mg PO .QD 02/07/24 08/04/24 History diltiazem HCl 180 mg 180 mg PO DAILY #30 caps 02/08/24 08/04/24 Rx capsule,extended release 24 hr digoxin 125 mcg (0.125 mg) tablet 0.125 mg PO Q12H ATRIAL 03/21/24 08/04/24 History FIBRILLATION amiodarone 200 mg tablet 200 mg PO Q12H 07/21/24 08/04/24 History bupropion HCl 300 mg 24 hr tablet, 300 mg PO QAM 07/21/24 08/04/24 History extended release calcium 600 mg (as 1 tab PO DAILY 07/21/24 08/04/24 History carbonate)-vitamin D3 20 mcg (800 unit) tablet cholecalciferol (vitamin D3) 25 25 mcg PO DAILY 07/21/24 08/04/24 History mcg (1,000 unit) capsule cqozabmuhrww-scbyhdmm-chvy 1 tab PO QAM 07/21/24 08/04/24 History fumarate 18 mg-folic acid 400 mcg tablet (One-A-Day Women's Complete) pantoprazole 40 mg tablet,delayed 40 mg PO Q12H 07/21/24 08/04/24 History release Allergies Allergy/AdvReac Type Severity Reaction Status Date / Time No Known Drug Allergies Allergy Verified 08/04/24 10:56 Exam Narrative Exam Narrative: Psych-alert and oriented x 3.? Attentive and appropriate, constitutionally normal, displays normal mood and affect per situation.? There are no obvious deficits in memory, reasoning, or intellect.? Skin-no obvious rashes, bruising, or erythema noted to the patient's area of pain. Extremities-upper extremities are warm with minimal edema and palpable pulses. Cervical- tenderness to palpation noted in the cervical spine and paraspinal musculature.? Pain is elicited with extension, and lateral rotation of the cervical spine.? Range of motion is slightly diminished due to pain. Facet loading maneuvers are positive bilaterally.? Coordination remains intact.? Gait remains non-antalgic. Assessment and Plan Assessment and Plan (1) Thoracic spine pain: (2) Neck pain: Plan 83yof who presents for assessment. failed conservative measures. given worsening neck and midback pain, will have her undergo cervical and thoracic xr. she is in agreement. meds reviewed. will trial t#3 1/2-1 tablet bid prn. pdmp reviewed. follow up after imaging.
== END 2024-09-01 12:31 | disposition home or self-care (01) ==
LOC: PM 12:30
PROVIDERS: PCP Internal Medicine; Visit Provider Anesthesiology
DX: M54.6 Pain in thoracic spine (principal); M54.2 Cervicalgia
CPT/HCPCS: G0463

== ENCOUNTER 2024-10-01 10:50 | Outpatient (OUT) | payer OTHER, SELFPAY ==
[2024-10-01 11:02] LABS: Hemoglobin 14.8 g/dL (12.0-16.0)
--- NOTE | 2024-10-01 11:36 | RT_ITS ---
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 Findings were considered accurate and reproducible. Both pre- and post-bronchodilator values utilized for spirometry. Spirometry (based on pre-bronchodilator values): -FEV1/FVC: Low normal @ 71% -FEV1: Normal @ 103% -FVC: Normal @ 107% -There is no significant bronchodilator response. Lung volumes by plethysmography (based on pre-bronchodilator values): -RV: Normal @ 82% -TLC: Normal @ 59% Diffusion capacity: -DLCO: Moderate reduction @ 59% when corrected for Hb 14.8g/dL Comparison from prior PFT 02/19/2018: -FEV1/FVC: 78%, FEV1 101% -No significant change in TLC @ 102% -Diffusion capacity has decreased from 73% Impressions: Spirometry technically normal, but trending towards mild obstruction. Normal lung volumes. Moderate diffusion impairment. When compared to prior testing, a mild obstructive process appears to be developing as well as a decreasing DLCO. Clinical correlation required. Electronically Signed On 10-02-2024 9:22:46 EST by Eliezer Melendez
[2024-10-01] MEDS: ALBUTEROL SULFATE 2.5 MG/3 ML VIAL NEB IH (11:38)
== END 2024-10-01 10:51 | disposition home or self-care (01) ==
LOC: CARD 10:51
PROVIDERS: PCP Internal Medicine; Visit Provider Internal Medicine Cardiovascular Disease
DX: I48.19 Other persistent atrial fibrillation (principal); Z79.899 Other long term (current) drug therapy
CPT/HCPCS: 36415; 85018; 94060; 94726; 94729

== ENCOUNTER 2024-10-13 13:08 | Outpatient (OUT) | payer OTHER, SELFPAY ==
--- NOTE | 2024-10-13 14:13 | P.CN_ITS ---
Consult Note: HPI Data of Consult Patient: known to practice within the last 3 years Consult date: 10/13/24 Requesting Physician: Yesica Astudillo MD Primary Care Provider: Chester Mehta DO Consult Narrative Reason for consult: neck pain Narrative: 84yof who presents for assessment. worsening neck pain that is worsened with lateral rotation. imaging reviewed, significant for multilevel degenerative changes and facet arthropathy. continues to engage in a series of provider directed home exercises >6 weeks, without lasting benefit. uses t#3 sparingly. cc:: CC: Yesica Astudillo MD Review of Systems ROS Status of ROS 10 or more systems reviewed and unremark able except as noted in history and below [facility] Medical History Diastolic heart failure ?I50.30 - Unspecified diastolic (congestive) heart failure (ICD-10) Depression ?F32.A - Depression, unspecified (ICD-10) Diaphragmatic hernia ?K44.9 - Diaphragmatic hernia without obstruction or gangrene (ICD-10) Lumbar stenosis with neurogenic claudication ?M48.062 - Spinal stenosis, lumbar region with neurogenic claudication (ICD- 10) Lumbar spondylosis ?M47.816 - Spondylosis without myelopathy or radiculopathy, lumbar region (ICD-10) Sacroiliitis ?M46.1 - Sacroiliitis, not elsewhere classified (ICD-10) S/P extracorporeal shock wave therapy ?Z98.890 - Other specified postprocedural states (ICD-10) Kidney stone ?N20.0 - Calculus of kidney (ICD-10) Low back pain ?M54.50 - Low back pain, unspecified (ICD-10) Neck pain ?M54.2 - Cervicalgia (ICD-10) Fibromyalgia ?M79.7 - Fibromyalgia (ICD-10) Hiatal hernia ?K44.9 - Diaphragmatic hernia without obstruction or gangrene (ICD-10) SOB (shortness of breath) ?R06.02 - Shortness of breath (ICD-10) High cholesterol ?E78.00 - Pure hypercholesterolemia, unspecified (ICD-10) Hypertension ?I10 - Essential (primary) hypertension (ICD-10) Surgical History Hx laparoscopic cholecystectomy ?Z90.49 - Acquired absence of other specified parts of digestive tract (ICD- 10) S/P hernia repair ?Z98.890 - Other specified postprocedural states (ICD-10) ?Z87.19 - Personal history of other diseases of the digestive system (ICD-10) Social History Highest level of school completed/degree received: high school graduate Little interest or pleasure in doing things: not at all Feeling down, depressed, or hopeless: not at all Meds Home Medications and Allergies Home Medications ?Medication ?Instructions ?Recorded ?Confirmed ?Type acetaminophen 325 mg capsule 975 mg PO Q6H PRN pain 10/15/23 08/04/24 History (Tylenol) atorvastatin 40 mg tablet 40 mg PO .QHS 10/15/23 08/04/24 History rivaroxaban 15 mg tablet (Xarelto) 15 mg PO .qhs 10/15/23 08/04/24 History ropinirole 1 mg tablet 1 mg PO .HS 10/15/23 08/04/24 History furosemide 20 mg tablet 20 mg PO .QD 02/07/24 08/04/24 History diltiazem HCl 180 mg 180 mg PO DAILY #30 caps 02/08/24 08/04/24 Rx capsule,extended release 24 hr digoxin 125 mcg (0.125 mg) tablet 0.125 mg PO Q12H ATRIAL 03/21/24 08/04/24 History FIBRILLATION amiodarone 200 mg tablet 200 mg PO Q12H 07/21/24 08/04/24 History bupropion HCl 300 mg 24 hr tablet, 300 mg PO QAM 07/21/24 08/04/24 History extended release calcium 600 mg (as 1 tab PO DAILY 07/21/24 08/04/24 History carbonate)-vitamin D3 20 mcg (800 unit) tablet cholecalciferol (vitamin D3) 25 25 mcg PO DAILY 07/21/24 08/04/24 History mcg (1,000 unit) capsule gcxsgmmpdxcl-chejsuem-oprl 1 tab PO QAM 07/21/24 08/04/24 History fumarate 18 mg-folic acid 400 mcg tablet (One-A-Day Women's Complete) pantoprazole 40 mg tablet,delayed 40 mg PO Q12H 07/21/24 08/04/24 History release acetaminophen 300 mg-codeine 30 mg See Rx Instructions .Route 09/01/24 Rx tablet .COMPLEX PRN pain #90 tabs Allergies Allergy/AdvReac Type Severity Reaction Status Date / Time No Known Drug Allergies Allergy Verified 08/04/24 10:56 Exam Narrative Exam Narrative: Psych-alert and oriented x 3.? Attentive and appropriate, constitutionally normal, displays normal mood and affect per situation.? There are no obvious deficits in memory, reasoning, or intellect.? Skin-no obvious rashes, bruising, or erythema noted to the patient's area of pain. Extremities-upper extremities are warm with minimal edema and palpable pulses. Cervical- tenderness to palpation noted in the cervical spine and paraspinal musculature.? Pain is elicited with extension, and lateral rotation of the cervical spine.? Range of motion is slightly diminished due to pain. Facet loading maneuvers are positive bilaterally.? Coordination remains intact.? Gait remains non-antalgic. Assessment and Plan Assessment and Plan (1) Cervical spondylosis: Plan 84yof who presents for assessment. failed conservative measures, as noted. imaging reviewed, as noted. given symptoms and imaging, prudent to attempt diagnostic bilateral c4-5, 5-6 medial branch block under fluoroscopic guidance with intention of proceeding to radiofrequency ablation. she is in agreement. meds reviewed, no changes. follow up after procedure.
== END 2024-10-13 13:09 | disposition home or self-care (01) ==
LOC: PM 13:08
PROVIDERS: PCP Internal Medicine; Visit Provider Anesthesiology
DX: M47.812 Spondylosis without myelopathy or radiculopathy, cervical region (principal)
CPT/HCPCS: G0463

== ENCOUNTER 2024-10-16 15:01 | Outpatient (OUT) | payer OTHER, SELFPAY ==
--- NOTE | 2024-10-16 15:06 | MM_ITS ---
Patient Name: AUSTIN GOLDEN MR#: [id number] : 1940 Exam Date: 10/16/2024 Ordering Doctor: DR Chester Mehta D.O. RADIOLOGY REPORT PROCEDURE: MM TOMOSYNTHESIS SCREENING BI COMPARISON: MG MAMM SCREEN 3D [place] CAD, 10/16/2022. MG MAMM SCREEN 3D [place] CAD, 10/14/2021. MG MAMM SCREEN [place] W CAD, 09/17/2018. MG MAMM [place] SCRN W CAD DIG, 05/15/2013. INDICATIONS: Screening Calculator Name NCI Breast Cancer Risk Assessment Tool 5 Year Breast Cancer Risk 1.40% Lifetime Breast Cancer Risk 1.90% Personal Breast Cancer No Personal Ovarian Cancer No Treatments None Family Cancers Son with sarcoma cancer at age 43. LOCATION: [facility] BREAST COMPOSITION: The breasts are heterogeneously dense,which may obscure small masses. FINDINGS: DIAGNOSTIC CATEGORY 1--NEGATIVE. RIGHT BREAST: No significant suspicious finding. LEFT BREAST: No significant suspicious finding. RECOMMENDATIONS: ROUTINE MAMMOGRAM AND CLINICAL EVALUATION IN 12 MONTHS. PLEASE NOTE: A NORMAL MAMMOGRAM DOES NOT EXCLUDE THE POSSIBILITY OF BREAST CANCER. A CLINICALLY SUSPICIOUS PALPABLE LUMP SHOULD BE BIOPSIED. Dictated by: Nnamdi Carson DO on 10/16/2024 at 15:55 Approved by: Nnamdi Carson DO on 10/16/2024 at 15:57
== END 2024-10-16 15:02 | disposition home or self-care (01) ==
LOC: MAMMO 15:01
PROVIDERS: PCP Internal Medicine; Visit Provider Internal Medicine
DX: Z12.31 Encounter for screening mammogram for malignant neoplasm of breast (principal); Z80.8 Family history of malignant neoplasm of other organs or systems
CPT/HCPCS: 77063; 77067

== ENCOUNTER 2024-10-20 10:41 | Day surgery (SDC) | payer OTHER, SELFPAY ==
[2024-10-20 10:54] VITALS: BP 142/75; PULSE 73; TEMP 36.9; O2SAT 96
[2024-10-20 11:10] VITALS: BP 126/58; PULSE 74; O2SAT 92
[2024-10-20 11:12] VITALS: BP 126/59; PULSE 73; O2SAT 91
[2024-10-20] MEDS: BUPIVACAINE HCL 0.25% PF 25 MG/10 ML VIAL 8 ML INJ (11:15)
[2024-10-20] MEDS: LIDOCAINE HCL 2% 400 MG/20 ML MDV 3 ML INJ (11:15)
--- NOTE | 2024-10-20 11:15 | W.PM.PROCNOT ---
Date of procedure: 10/20/24 Pre-op diagnosis: Pain due to cervical spondylosis without myelopathy Post-op diagnosis: same as pre-op Procedure: Procedure: Bilateral C4-5, 5-6 medial branch block Medications: Bupivacaine 0.25% 6cc The patient was seen and examined in the preoperative holding area.? The informed consent was obtained and placed on the chart.? The patient was brought to the medical procedure unit and placed in the prone position.? A timeout was completed verifying correct patient, procedure site, positioning, plan, and special equipment.? Using aseptic technique, the needle was placed at left C4.? Under direct fluoroscopic visualization, a Quincke tip needle was advanced to the midpoint of the waist of the articular pillar at the respective medial branch segment. The above-mentioned injectate was placed in a 1 mL aliquot proceeded by negative aspiration.? The needle was removed.? The procedure was completed at all left C5, 6. The same procedure, at the same levels, was then completed on the right side. Insertion site was covered.? Patient was taken to the postprocedural recovery area and monitored for an appropriate length of time before found suitable for discharge in the accompaniment of a responsible adult. Anesthesia: Local Surgeon: Yesica Astudillo Pathology: none sent Condition: stable Disposition: no change
== END 2024-10-20 11:19 | disposition home or self-care (01) ==
LOC: SURGOUT 10:42
PROVIDERS: PCP Internal Medicine; Visit Provider Anesthesiology
DX: M47.812 Spondylosis without myelopathy or radiculopathy, cervical region (principal)
CPT/HCPCS: 64490; 64491; J0665

== ENCOUNTER 2024-10-22 09:53 | Outpatient (OUT) | payer OTHER, SELFPAY ==
--- NOTE | 2024-10-22 10:40 | P.CN_ITS ---
Consult Note: HPI Data of Consult Patient: known to practice within the last 3 years Requesting Physician: Velvet Jimenez NP Primary Care Provider: Chester Mehta DO Consult Narrative Reason for consult: f/u Narrative: Lesa Fermin a pleasant 84 year old female presents for evaluation of chronic neck pain. longstanding hx of cervical pain secondary to cervical spondylosis and DDD unresponsive to >6weeks of PT/provider guided HEP, heat, ice, tylenol, NSAIDs. denies falls or injury. utilizes tylenol #3 prn for moderate to severe pain, on xarelto cannot take NSAIDs. recently underwent bilateral C4/5 C5/6 MBB #1 with >90% improvement while anesthetized. Pain today / increasing to 8/10 with bending and ROM. cc:: CC: Velvet Jimenez NP Review of Systems ROS Status of ROS 10 or more systems reviewed and unremark able except as noted in history and below [facility] Medical History Diastolic heart failure ?I50.30 - Unspecified diastolic (congestive) heart failure (ICD-10) Depression ?F32.A - Depression, unspecified (ICD-10) Diaphragmatic hernia ?K44.9 - Diaphragmatic hernia without obstruction or gangrene (ICD-10) Lumbar stenosis with neurogenic claudication ?M48.062 - Spinal stenosis, lumbar region with neurogenic claudication (ICD- 10) Lumbar spondylosis ?M47.816 - Spondylosis without myelopathy or radiculopathy, lumbar region (ICD-10) Sacroiliitis ?M46.1 - Sacroiliitis, not elsewhere classified (ICD-10) S/P extracorporeal shock wave therapy ?Z98.890 - Other specified postprocedural states (ICD-10) Kidney stone ?N20.0 - Calculus of kidney (ICD-10) Low back pain ?M54.50 - Low back pain, unspecified (ICD-10) Neck pain ?M54.2 - Cervicalgia (ICD-10) Fibromyalgia ?M79.7 - Fibromyalgia (ICD-10) Hiatal hernia ?K44.9 - Diaphragmatic hernia without obstruction or gangrene (ICD-10) SOB (shortness of breath) ?R06.02 - Shortness of breath (ICD-10) High cholesterol ?E78.00 - Pure hypercholesterolemia, unspecified (ICD-10) Hypertension ?I10 - Essential (primary) hypertension (ICD-10) Surgical History Hx laparoscopic cholecystectomy ?Z90.49 - Acquired absence of other specified parts of digestive tract (ICD- 10) S/P hernia repair ?Z98.890 - Other specified postprocedural states (ICD-10) ?Z87.19 - Personal history of other diseases of the digestive system (ICD-10) Social History Highest level of school completed/degree received: high school graduate Little interest or pleasure in doing things: not at all Feeling down, depressed, or hopeless: not at all Meds Home Medications and Allergies Home Medications ?Medication ?Instructions ?Recorded ?Confirmed ?Type acetaminophen 325 mg capsule 975 mg PO Q6H PRN pain 10/15/23 10/20/24 History (Tylenol) atorvastatin 40 mg tablet 40 mg PO .QHS 10/15/23 10/20/24 History rivaroxaban 15 mg tablet (Xarelto) 15 mg PO .qhs 10/15/23 10/20/24 History ropinirole 1 mg tablet 1 mg PO .HS 10/15/23 10/20/24 History furosemide 20 mg tablet 20 mg PO .QD 02/07/24 10/20/24 History diltiazem HCl 180 mg 180 mg PO DAILY #30 caps 02/08/24 10/20/24 Rx capsule,extended release 24 hr digoxin 125 mcg (0.125 mg) tablet 0.125 mg PO Q12H ATRIAL 03/21/24 10/20/24 History FIBRILLATION amiodarone 200 mg tablet 200 mg PO Q12H 07/21/24 10/20/24 History bupropion HCl 300 mg 24 hr tablet, 300 mg PO QAM 07/21/24 10/20/24 History extended release calcium 600 mg (as 1 tab PO DAILY 07/21/24 10/20/24 History carbonate)-vitamin D3 20 mcg (800 unit) tablet cholecalciferol (vitamin D3) 25 25 mcg PO DAILY 07/21/24 10/20/24 History mcg (1,000 unit) capsule cniahvhzevlv-gbgqmgvl-tcbk 1 tab PO QAM 07/21/24 10/20/24 History fumarate 18 mg-folic acid 400 mcg tablet (One-A-Day Women's Complete) pantoprazole 40 mg tablet,delayed 40 mg PO Q12H 07/21/24 10/20/24 History release acetaminophen 300 mg-codeine 30 mg See Rx Instructions .Route 09/01/24 10/20/24 Rx tablet .COMPLEX PRN pain #90 tabs Allergies Allergy/AdvReac Type Severity Reaction Status Date / Time No Known Drug Allergies Allergy Verified 10/20/24 10:58 Exam Constitutional Documenting provider has reviewed patient's vital signs: yes Common normals: no apparent distress, oriented x3, healthy appearing, alert and well nourished General appearance: cooperative HENMT Common normals: normocephalic, hearing grossly normal bilaterally and moist oral mucous membranes Head and scalp: normocephalic Eye Common normals: PERRL Pupil: PERRL Neck & C-Spine Common normals: full ROM General: normal visual inspection Cervical spine: cervical ROM abnormal, pain with cervical ROM and cervical spine tenderness C3, C4 and C5 Other: negative spurlings sensation intact BUE strength 5/5 in BUE positive facet loading Chest Common normals: inspection of chest normal Respiratory Common normals: normal respiratory effort, no retractions and no use of accessory muscles Neuro Common normals: oriented x3, CN's II-XII intact bilaterally, moves all extremities, no focal motor deficits, no sensory deficits noted and deep tendon reflexes 2+ bilaterally Sensorium/orientation: alert Motor exam: strength 5/5 throughout and no movement abnormalities noted Psych Common normals: mental status grossly normal, thought process normal, cooperative, affect normal, speech normal and activity/motor behavior normal Speech: normal speech Thought process: normal thought process Results Additional Findings Additional findings: If on a controlled substance or opioids, I have checked an [place] report on this patient and there are no aberrancies noted in the prescribing history.??If on a controlled substance or opioid a drug screen was completed and reviewed within the last year, and if there has not been a drug screen completed we ordered one today to monitor higher risk, state monitored pain medication use. As part of providing excellent, safe, comprehensive care, the following was completed at our patient's visit: 1. A medication reconciliation and review to ensure accurate knowledge of current/active medications, including asking our patients to inform us about any eouu-rmv-sjpskve medications or herbal remedies/nutritional supplements/alternative remedies. 2. A review to specifically ensure our patients have had annual screening for sc reening for depression, screening for tobacco use, and screening for unhealthy alcohol use. For concerning screenings had a discussion with the patient, provided patient education, and recommended follow-up with primary care provider when appropriate. If patient noted with a risk of falling, they received education on strength, gait, and balance training to prevent future risk of falling. Portions of this note may have been carried over from the previous visit and updated as appropriate. Please note this office utilizes paper charting in addition to the electronic medical record. A list of current medications, vitals, and PMH is available there as the clinical staff outside of myself do not have access to [employer] charting during the clinic day operations. As part of providing quality comprehensive care the current medications, vitals, and PMH were reviewed in the paper chart. Assessment and Plan Assessment and Plan (1) Cervical spondylosis: Assessment and Plan: The patient has had over 3 months of moderate to severe neck pain with functional impairment and inadequate response to conservative care including NSAIDS (unless there are contraindication such as concurrent blood thinners), multiple oral or topical pain medications, and home exercise program/physical therapy.? Patient has completed >6 weeks of guided home exercise program and/or formal physical therapy program without relief of their symptoms.? I have reviewed the imaging of the cervical spine and no red flags were identified.? The imaging reveals radiographic findings consistent with cervical spondylosis The Oswestry Disability Index was completed, and the patient scored a 17%.? The patient noted the following:?? mild to moderate pain impacting ADLs and travel We discussed the risks and benefits of the procedure with the patient, and we are NOT planning on using sedation as outlined in the guidelines from Medicare unless there is a documented reason that sedation would be strongly recommended.?? ?The procedure will be completed with fluoroscopic guidance.? (2) Chronic use of opiate drug for therapeutic purpose: Plan bilateral C4/5 C5/6 MBB #2 working towards RFA update UDS for medication monitoring continue current medications continue HEP as tolerated f/u after injection
== END 2024-10-22 09:54 | disposition home or self-care (01) ==
LOC: PM 09:53
PROVIDERS: PCP Internal Medicine; Visit Provider Nurse Practitioner
DX: M47.812 Spondylosis without myelopathy or radiculopathy, cervical region (principal); Z79.891 Long term (current) use of opiate analgesic
CPT/HCPCS: G0463

== ENCOUNTER 2025-01-21 07:50 | Outpatient (OUT) | payer OTHER, SELFPAY ==
--- OUTSIDE RECORDS SUMMARY | 2025-01-21 07:57 | XMS_ITS | Clinical Summary ---
Author Organization [facility] Address [address] [place] [address] Care Team Providers Care Land Surveyor Name Role Phone Chester Mehta Primary Care Provider [phone] Allergies Active Allergy Reactions Criticality Noted Date Comments Sulfa (Sulfonamide Antibiotics) Intolerance 02/2013 Medications FELODIPINE 5 mg 24 hr tablet Take 5 mg by mouth once daily. 08/01/2012 Active Clarence-3 Fatty Acids-Vitamin E (FISH OIL) 1,000 mg cap Take 1 capsule by mouth once daily. Active vajwi-3q-opp-ep a-fish oil-D3 (VITAMIN-D + OMEGA-3) 350 mg- 1,000 unit cap Take 1 tablet by mouth once daily. Active aspirin, enteric coated (ASPIRIN, ENTERIC COATED) 81 mg EC tabletIndicatio ns:Anemia,Iron deficiency Take 81 mg by mouth once daily. Active CALCIUM/FA/MULT IVIT-MIN (VIACTIV MULTI-VITAMIN ORAL)Indication s:Anemia,Iron deficiency Take 1,000 mg by mouth once daily. Active ASCORBIC ACID (SUPER C ORAL) Take 1 tablet by mouth once daily. Active VENLAFAXINE HCL (EFFEXOR ORAL) Take by mouth once daily. Active ALPRAZolam (XANAX) 0.25 mg tablet 08/11/2016 Active clonazePAM (KLONOPIN) 0.5 mg tablet 09/21/2016 Active oxyCODONE-aceta minophen (PERCOCET) 5-325 mg tablet 10/27/2016 Act ginny Active Problems Patient Care Coordination No te Formatting of this note migh t be different from the original. Indication for hospital admission/procedure: Hiatal hernia LVEF: Normal RVF: Normal Important/Relevant PMH/PSH: HTN, anemia, depression Preoperative Hospital Course (narrative): Admitted for elective procedure below. Procedure/Surgeries: 08/17/2015 open reduction of hiatal hernia, Lobo gastroplasty and Raul fundoplication. RNF on 08/18 Airway Difficulty: Grade I OR Course: Uncomplicated Pacing wires: No Postoperative Course/General Impression: (narrative or log of major events with date of onset): 08/19: Readmitted to CVICU for respiratory distress. O2 NRB in situ on arrival. Bronchodilator treatment did not improve SpO2. On arrival, hemodynamically stable, SpO2 88-96%. C/o uncontrolled incision pain; improved with fentanyl [employer]. Pulmonary congestion; gave lasix. BPH. 12. Later in the morning hypoxemia worsened and patient intubated. CT ordered. Echo of heart pending. Issues to communicate at signout: 08/24/2015 Hypoxemia, patient intubated 08/19 Start Zosyn for aspiration PNA, consult ID 08/20 Bronchoscopy 08/20, BAL sent normal li Extubated / Pulm toilet/ OOB Schedule lasix. Pulm toilet RNF Add jydralazine for SBP > 140 - HR 70's Problem Noted Date Diagnosed Date Paroxysmal atrial fibrillation 08/25/2015 Overview (08/26/2015): Patient was sitting in chair and developed consistent PACs, which then converted to uncontrolled atrial fibrillation HR max 150 HR low 98; patient asymptomatic, transferred back to bed without complications. Hemodynamically stable otherwise. Today 08/26/2015; SR Plan: -Convert to Metoprolol 12.5 mg PO BID -Continue to monitor HR and rhythm. - Keep Magnesium >2 and K>4 . Delirium, subacute 08/24/2015 Overview (08/26/2015): 08/24/2015 seroquel at bedtime seems to sundown per ICU staff. Currently patient is A&O x3; appropriate, and in good mood. No confusion, disorientation, or sundowners today 08/26/2015. Plan: -continue Seroquel for now. -Continue to monitor mood, mental status and activity. . Hypertension 08/19/2015 Overview (08/26/2015): HTN likely due to uncontrolled pain, no h/o essential HTN Plan: -Continue IV Hydralazine PRN for now. -Continue to monitor BP and HR. -Convert metoprolol to 12.5 mg PO BID . DISPOSITION AND FOLLOW-UP 08/18/2015 Overview (08/26/2015): and lives in [place], [place]. At this time, we anticipate that the patient will be discharged home once clinically stable. Plan: - Discuss needs with patient. - Collaborate with Case management to facilitate DC process - Will continue to evaluate during the post op period. - D/C home today. with home PT and nurse visit . Mechanical venous thromboemb olism (VTE) prophylaxis in place 08/18/2015 Overview (08/26/2015): Heparin 5000 U twice daily subcutaneously and BRENDA hose. No signs or symptoms of DVT/PE or bleeding at time of discharge. The patient is at high risk for VTE. Plan: - Continue current regimen - Encourage continued ambulation while at home. . Pain, postoperative, acute 08/18/2015 Overview (08/26/2015): Status post laparotomy, hiatal hernia repair 08/17/15. Current regimen:oxycodone and tylenol. Plan: - Continue current regimen. Continue to re-assess pain control to keep pain level at 4 or less - Bowel regimen: bisacodyl suppository daily prn. . H/O iron deficiency anemia 08/18/2015 Overview (08/26/2015): PMH of iron deficiency anemia: Followed by Dr. Cash ([facility] hematology). Last iron infusion was December 2014. Today 08/26/2015 H&H 9. Plan: - Monitor CBC - Monitor SOB, fatigue, weakness. . lobo raul 08/18/2015 Overview (08/26/2015): 74 year old female with known paraesophageal hernia, presented with 5 year history of worsening shortness of breath, intermittent early satiety and intermittent bouts of excessive phlegm. Gastric emptying normal. On 08/17/15, Dr. Li performed an open reduction of hiatal hernia, Lobo gastroplasty and Raul fundoplication. Plan: - start clear liquid diet today -ZANA x2 bulb -genevieve to bulb -Stop IV fluids after adequate PO intake. -Abdominal incision with richy IN HOUSE CRA, dry - please use abdominal binder! . Unspecified intestinal malabsorption 12/11/2014 Iron deficiency 09/26/2012 Anemia 09/26/2012 Resolved Problems Problem Noted Date Diagnosed Date Resolved Date Encephalopathy, metabolic 08/22/2015 Overview (08/22/2015): Agitation on awakening. Likely emergence +/_ infection. Limiting ability to wte. Stop fent drip. Precedex mainstay of sedation including boluses as needed. Hypoxia 08/19/2015 08/25/2015 Overview (08/19/2015): Inc Fio2 requirements Diurese BPH No Bipap 08/19/2015 Intubated about 1030 AM for worsening hypoxemia. Postoperative acute respiratory failure 08/19/2015 08/25/2015 Overview (08/23/2015): A/P Intubated in the CVICU on 08/19/2015 for worsening hypoxemia. Had CT chest yesterday which showed consolidation in bilateral bases R>L, no PE. Bronchoscopy done today. BAL sent. Current vent settings: PCV: FiO2 40% PEEP 8. Excellent gas exchange. Has perihilar edema on CxR. Fluid balance pos 2.5L, weight up 10 Kg since admission. Bun/Cr low. Stable hemodynamics. Continue zosyn for now. Schedule lasix. Unfortunately still agitated with sedation off (likely emergence delirium) Rx with haldol/precedex restraints. Precedex increase/boluses ad needed. Stop fentanyl. If calm WTE (ok from surgical perspective) 08/23/2015 hold precedex/ WTEX - treat delirium as needed with haldol/ seroquel if taking PO Immunizations Immunization Administration Dates Next Due pneumococcal polysaccharide (PPV23) vaccine, 23 valent (PNEUMOVAX 23) 03/22/2015 Family History Medical History Relation Comments Diabetes Father Heart Father brain benign tumors [Other] Mother at 59 y/o Coronary Artery Disease Sister 1 Heart Sister 1 Obesity Sister 2 Thyroid Sister 3 Cancer Hypertension Sister 4 Ischemic Heart Disease Sister 4 Stroke Sister 4 Hypertension Sister 5 & s/p back surge ry Cancer Son melanoma Relation Status Comments Father Mother Sister 1 Sister 2 Sister 3 Sister 4 Sister 5 Son Social History Tobacco Use Types Packs/Day Years Used Date Smoking Tobacco: Never Smokeless Tobacco: Never Alcohol Use Standard Drinks/Week Comments Yes 0 (1 standard drink = 0.6 oz pur e alcohol) rare 1 x/year Comments Unknown Sex and Gender Information Value Date Recorded Sex Assigned at Not on file Legal Sex Female 10:15 AM EST Gender Identity Not on file Sexual Orientation Not on file Last Filed Vital Signs Vital Sign Reading Time Taken Comments Blood Pressure 144/90 11/30/2016 1:01 PM EDT Pulse 76 11/30/2016 1:01 PM EDT Temperature 36.5 C (97.7 F) 11/30/2016 1:01 PM EDT Respiratory Rate 16 11/30/2016 1:01 PM EDT Oxygen Saturation 94% 11/15/2015 3:16 PM EDT Inhaled Oxygen Concentration - - Weight 65.1 kg (143 lb 8 oz) 11/30/2016 1:01 PM EDT Height 152.4 cm (5') 11/30/2016 1:01 PM EDT Body Mass Index 28.03 11/30/2016 1:01 PM EDT Plan of Treatment Health Maintenance Due Date Last Done Comments Anxiety Screening 1960 Depression Screening 1958 DTaP,Tdap,Td Vaccine (1 - Tdap) 1961 Shingrix Vaccine (1 of 2) 1992 Bone Density Screening 2007 Pneumococcal Vaccine: 50+ (2 of 2 - PCV) 03/22/2016 03/22/2015 RSV Vaccine (1 - 1-dose 75+ series) 2017 Diabetes Screening 08/26/2018 08/26/2015, 0 08/25/2015, 08/24/2015, Additional history exists Covid-19 Vaccine (1 - 2023-2 5 season) 2024 Advance Directive Discussion 08/20/2024 Influenza Vaccine (Season Ended) 2025 Procedures Procedure Name Priority Date/Time Associated Diagnosis Comments BASIC METABOLIC PANEL Routine 08/26/2015 5:00 AM EST from Last 3 Months or Most Recently Relevant to Health Maintenance Results * (ABNORMAL) BASIC METABOLIC PNL (08/26/2015 5:00 AM EST) Glucose 115(H) 65 - 100 mg/dL 08/26/2015 5:44 AM EST [facility] BUN 13 8 - 25 mg/dL 08/26/2015 5:44 AM EST [facility] Creatinine 0.87 0.70 - 1.40 mg/dL 08/26/2015 5:44 AM [facility] Sodium 140 132 - 148 mmol/L 08/26/2015 5:44 AM EST [facility] Potassium 4.1 3.5 - 5.0 mmol/L 08/26/2015 5:44 AM [facility] Chloride 104 98 - 110 mmol/L 08/26/2015 5:44 AM EST [facility] CO2 25 23 - 32 mmol/L 08/26/2015 5:44 AM [facility] Anion Gap 11 0 - 15 mmol/L 08/26/2015 5:44 AM [facility] Calcium 8.2(L) 8.5 - 10.5 mg/dL 08/26/2015 5:44 AM [facility] eGFR- >60 08/26/2015 5:44 AM [facility] eGFR-All Other Races >60 . 08/26/2015 5:44 AM [facility] Comment: eGFR (Estimated GFR) Units of measure: mL/min/1.73 meters squared eGFR is derived from the reexpressed MDRD Study equation using the following parameters: serum creatinine, age, gender and race. The creatinine assay has been calibrated to be traceable to IDMS. An eGFR <60 mL/min/1.73m2 for >3 months is consistent with chronic kidney disease. Refer to KDOQI guidelines for clinical interpretation. In patients with unstable renal function, e.g. those with acute kidney injury, the eGFR may not accurately reflect actual GFR. Blood specimen (specimen) BLOOD SPECIMEN / Unknown 08/26/2015 5:00 AM EST 08/26/2015 5:04 AM EST us Yobany Li MD LABORATORY Final Result [facility] [address] [place] [address] from Last 3 Months or Most Recently Relevant to Health Maintenance Insurance [facility] PPO Care Teams Land Surveyor Relationship Specialty Start Date End Date Chester Mehta DO PCP - General Internal Medicine 11/30/11
--- OUTSIDE RECORDS SUMMARY | 2025-01-21 07:57 | XMS_ITS | Encounter Summary ---
Author Organization [facility] Address [address] [place] [address] Phone Care Team Providers Care Animal Cruelty Investigation Supervisor Name Role Phone TysonChester Jovani MORENO Primary Care Provider [phone] Gustavo Garcia MD Unavailable [phone] Maxwell Stafford MD Unavailable [phone] Encounter Details Date Type Department Care Team (Late st Contact Info) Description 07/01/2024 Scanned Document [facility] [address] [place] [id number] Scanning, Generic Provider Social History Tobacco Use Types Packs/Day Years Used Date Smoking Tobacco: Never Smokeless Tobacco: Never Alcohol Use Standard Drinks/Week Comments Never 0 (1 standard drink = 0.6 oz pur e alcohol) AUDIT-C Answer Date Recorded Q1: How often do you have a drink containing alcohol? Never 03/21/2024 Q2: How many drinks containi ng alcohol do you have on a typical day when you are drinking? Patient does not drink Q3: How often do you have si x or more drinks on one occasion? Never 03/21/2024 Overall Financial Resource Strain (CARDIA) Answe r Date Recorded How hard is it for you to pa y for the very basics like food, housing, medical care, and heating? Not hard at all 03/21/2024 PHQ-2 Answer Date Recorded Patient Health Questionnaire-2 Score 1 03/21/2024 PRAPARE - Transportation Answer Date Re corded In the past 12 months, has l ack of transportation kept you from medical appointments or from getting medications? No 12/2023 In the past 12 months, has l ack of transportation kept you from meetings, work, or from getting things needed for daily living? No 03/24/2024 Housing Stability Vital Sign Answer Kumar e Recorded In the last 12 months, was t here a time when you were not able to pay the mortgage or rent on time? No 03/21/2024 In the past 12 months, how m any times have you moved where you were living? 1 03/21/2024 At any time in the past 12 m [facility], were you homeless or living in a group home (including now)? No 03/21/2024 Comments Unknown Sex and Gender Information Value Date Recorded Sex Assigned at Not on file Legal Sex Female 2:32 PM EST Gender Identity Not on file Sexual Orientation Not on file COVID-19 Exposure Response Date Recorded In the last 10 days, have yo u been in contact with someone who was confirmed or suspected to have Coronavirus/COVID-19? No / Unsure 06/05/2024 11:37 AM EDT documented as of this encounter Functional Status * Are you deaf or do you have serious difficulty hearing? Answer Date of Assessment Author No 03/27/2024 1:02 PM EDT Avery Ang RN * Are you blind or do you have serious difficulty seeing, even when wearing glasses? Answer Date of Assessment Author No 03/27/2024 1:02 PM EDT Avery Ang RN * Do you have serious difficulty walking or climbing stairs? Answer Date of Assessment Author No 03/27/2024 1:02 PM EDT Avery Ang RN * Do you have serious difficulty dressing or bathing? Answer Date of Assessment Author No 03/27/2024 1:02 PM EDT Avery Ang RN * Because of a physical, mental, or emotional condition, do you have serious difficulty doing errandsalone such as visiting the doctor? Answer Date of Assessment Author No 03/27/2024 1:02 PM EDT Avery Ang RN documented as of this encounter Mental Status * Because of a physical, mental, or emotional condition, do you have serious difficulty concentrating, remembering, or making decisions? (5 years old or older) Answer Entry Date Author No 03/27/2024 1:02 PM EDT Avery Ang RN documented in this encounter Plan of Treatment Upcoming Encounters Date Type Department Care Team (Late st Contact Info) Description 03/05/2025 3:00 PM EDT Office Visit [facility] [address] [facility] [address] [place] [address] Gustavo Garcia MD [address] [facility] 2, [facility] [address] [place] [address] 05/21/2025 11:00 AM EDT Ancillary Procedure [facility] Medical Office Building 7 [facility] [address] [place] [address] 05/21/2025 11:15 AM EDT Office Visit [facility] Medical Office Building [address] [place] [address] [address] [place] [address] Maxwell Stafford MD [address] [place] [address] documented as of this encounter Visit Diagnoses Not on filedocumented in this encounter Additional Health Concerns Assessment Noted Time A fall risk assessment has been complete d for the patient 04/24/2024 3:34 PM EDT documented as of this encounter Care Teams Animal Cruelty Investigation Supervisor Relationship Specialty Start Date End Date Chester Mehta DO [address] [place] [address] PCP - General Internal Medicine 08/09/23 Gustavo Garcia MD [address] [facility] 2, [facility] [address] [place] [address] Consulting Physician Cardiology 09/10/23 Maxwell Stafford MD [address] [place] [address] [address] [place] [address] Consulting Physician Cardiology 02/13/24 documented as of this encounter
--- OUTSIDE RECORDS SUMMARY | 2025-01-21 07:57 | XMS_ITS | Encounter Summary ---
Author Organization [facility] Address [address] [place] [address] Phone Care Team Providers Care Computer Forensics Investigator Name Role Phone TysonChester Jovani MORENO Primary Care Provider [phone] Gustavo Garcia MD Unavailable [phone] Maxwell Stafford MD Unavailable [phone] Encounter Details Date Type Department Care Team (Late st Contact Info) Description 06/30/2024 Scanned Document [facility] [address] [place] [phone] Scanning, Generic Provider Social History Tobacco Use [...] any time in the past 12 m [facility], were you homeless or living in a halfway (including now)? No 03/21/2024 Comments Unknown Sex [...] Author No 03/27/2024 1:02 PM EDT Avery nAg RN documented in this encounter Plan of Treatment Upcoming Encounters Date Type Department Care Team (Late st Contact Info) Description 03/05/2025 3:00 PM EDT Office Visit [facility] [address] [facility] [address] [place] [address] Gustavo Garcia MD 703 [facility] 2, [facility] [address] [place] [address] 05/21/2025 11:00 AM EDT Ancillary Procedure [facility] Medical Office Building 7 [facility] [address] [place] [address] 05/21/2025 11:15 AM EDT Office Visit [facility] Medical Office Building [address] [place] [address] [address] [place] [address] Maxwell Stafford MD [address] [place] [address] [address] [place] [address] documented as of this encounter Procedures Procedure Name Priority Date/Time Associated Diagnosis Comments OUTSIDE IMAGING SCAN 06/30/2024 documented in this encounter Results * OUTSIDE IMAGING SCAN (06/30/2024) Anatomical Region Laterality Modality Other Narrative 06/30/2024 Ordered by an unspecified provider. Generic Provider Scanning OUTSIDE SCAN Final Result documented in this encounter Visit Diagnoses Not on filedocumented in this encounter Additional Health Concerns Assessment Noted Time A fall risk assessment has been complete d for the patient 04/24/2024 3:34 PM EDT documented as of this encounter Care Teams Computer Forensics Investigator Relationship Specialty Start Date End Date Chester [place] [address] PCP - General Internal Medicine 08/09/23 Gustavo Garcia MD [address] [place] [address] 2, [facility] [address] [place] [address] Consulting Physician Cardiology 09/10/23 Maxwell Stafford MD [address] [place] [address] [address] [place] [address] Consulting Physician Cardiology 02/13/24 documented as of this encounter
--- OUTSIDE RECORDS SUMMARY | 2025-01-21 07:57 | XMS_ITS | Encounter Summary ---
Author Organization [facility] Address [address] [place] [address] Phone Care Team Providers Care Fish Roe Processor Name Role Phone TysonChester Jovani MORENO Primary Care Provider [phone] Gustavo Garcia MD Unavailable [phone] Maxwell Stafford MD Unavailable [phone] Encounter Details Date Type Department Care Team (Late st Contact Info) Description 07/02/2024 Scanned Document [facility] [address] [place] [phone] Scanning, Generic Provider Social History Tobacco Use [...] any time in the past 12 m [facility], were you homeless or living in a [place] health care facility (including now)? No 03/21/2024 Comments Unknown Sex [...] Description 03/05/2025 3:00 PM EDT Office Visit [facility] 703 [facility] [address] [place] [address] Gustavo Garcia MD 703 [facility] 2, [facility] [address] [place] [address] 05/21/2025 11:00 AM EDT Ancillary Procedure [facility] Medical Office Building 7 [facility] [address] [place] [address] 05/21/2025 11:15 AM EDT Office Visit [facility] Medical Office Building [address] [place] [address] [address] [place] [address] Maxwell Stafford MD [address] [place] [address] documented as of this encounter Visit Diagnoses Not on filedocumented in this encounter Additional Health Concerns Assessment Noted Time A fall risk assessment has been complete d for the patient 04/24/2024 3:34 PM EDT documented as of this encounter Care Teams Fish Roe Processor Relationship Specialty Start Date End Date Chester Mehta DO [address] [place] [address] PCP - General Internal Medicine 08/09/23 Gustavo Garcia MD 703 [facility] 2, [facility] [address] [place] [address] Consulting Physician Cardiology 09/10/23 Maxwell Stafford MD [address] [place] [address] [address] [place] [address] Consulting Physician Cardiology 02/13/24 documented as of this encounter
--- OUTSIDE RECORDS SUMMARY | 2025-01-21 07:57 | XMS_ITS | Encounter Summary ---
Author Organization [facility] Address [address] [place] [address] Care Team Providers Care Record Maker Name Role Phone Chester Mehta DO Primary Care Provider [phone] Source Comments In the event this information is protected by the Federal Confidentiality of Alcohol and Drug AbusePatient Records regulations: The Federal rules restrict any use of the information to criminally investigate or prosecute any alcohol or drug abuse patient.[facility] Encounter Details Date Type Department Care Team (Late st Contact Info) Description 09/16/2015 [facility] [address] [place], [place] [phone] Yobany Li MD [address] [place] [id number] Social History Tobacco Use Types Packs/Day Years [...] on file documented as of this encounter Functional Status * Are you deaf or do you have serious difficulty hearing? Answer Date of Assessment Author No 08/26/2015 1:40 PM Naif Strickland RN * Are you blind or do you have serious difficulty seeing, even when wearing glasses? Answer Date of Assessment Author No 08/26/2015 1:40 PM Naif Strickland RN * Do you have serious difficulty walking or climbing stairs? Answer Date of Assessment Author No 08/26/2015 1:40 PM Naif Strickland RN * Do you have difficulty dressing or bathing? Answer Date of Assessment Author No 08/26/2015 1:40 PM Naif Strickland RN * Because of a physical, mental, or emotional condition, do you have difficulty doing errands alone such as visiting a doctor's office or shopping? Answer Date of Assessment Author No 08/26/2015 1:40 PM Naif Strickland RN documented as of this encounter Mental Status * Because of a physical, mental, or emotional condition, do you have serious difficulty concentrating, remembering, or making decisions? Answer Entry Date Author No 08/26/2015 1:40 PM Naif Strickland RN documented in this encounter Plan of Treatment Not on file documented as of this encounter Visit Diagnoses Not on filedocumented in this encounter Care Teams Record Maker Relationship Specialty Start Date End Date Chester Mehta DO PCP - General Internal Medicine 11/30/11 documented as of this encounter
--- OUTSIDE RECORDS SUMMARY | 2025-01-21 07:58 | XMS_ITS | Encounter Summary ---
Author Organization [facility] Address [address] [place] [address] Phone Care Team Providers Care Commercial Sales Specialist Name Role Phone Chester Mehta DO Primary Care Provider [phone] Chester Mehta DO Primary Care Provider [phone] Gustavo Garcia MD Unavailable [phone] Maxwell Stafford MD Unavailable [phone] Sasha Dobbins RN Unavailable Unavailable Encounter Details Date Type Department Care Team (Late st Contact Info) Description 12/15/2020 Orders Only [facility] LEGACY [address] [place] [address] Abdifatah Madison MD [address] [facility] Medical Office Bldg, [place] [place] [address] Social History Tobacco Use Types Packs/Day Years Used Date Smoking Tobacco: Never Assessed Comments Unknown Sex and Gender Information Value Date Recorded Sex Assigned at Not on file Legal Sex Female 2:32 PM EST Gender Identity Not on file Sexual Orientation Not on file documented as of this encounter Plan of Treatment Upcoming Encounters Date Type Department Care Team (Late Contact Info) Description 03/05/2025 3:00 PM EDT Office Visit [address] [place] [address] Gustavo Garcia MD 703 [facility] 2, [address] [place] [address] 05/21/2025 11:00 AM EDT Ancillary Procedure [facility] Medical Office Building [address] [facility] 120 [place] [address] 05/21/2025 11:15 AM EDT Office Visit [facility] Medical Office Building 917 [facility] 130 [place] [address] Maxwell Stafford MD 917 [facility] 130 [place] [address] Scheduled Orders Name Type Priority Associated Diagnoses Orde r Schedule OUTSIDE LAB SCAN Lab Ordered: 12/15/2020 documented as of this encounter Visit Diagnoses Not on filedocumented in this encounter Care Teams Commercial Sales Specialist Relationship Specialty Start Date End Date Chester Mehta DO PCP - General 08/20/99 08/08/23 Chester Mehta DO [address] [place] [address] PCP - General Internal Medicine 08/09/23 Gustavo Garcia MD [address] [place] [address] 2, [facility] 250 [place] [address] Consulting Physician Cardiology 09/10/23 Maxwell Stafford MD [address] [place] [address] 130 [place] [address] Consulting Physician Cardiology 02/13/24 Sasha Dobbins, shipping & receiving leadRig Hand 03/28/24 04/28/24 documented as of this encounter
--- OUTSIDE RECORDS SUMMARY | 2025-01-21 07:58 | XMS_ITS | Encounter Summary ---
Author Organization [facility] Address [address] [place] [address] Phone Care Team Providers Care Fiction And Nonfiction Author Name Role Phone TysonChester Primary Care Provider [phone] Gustavo Garcia MD Unavailable [phone] Maxwell Stafford MD Unavailable [phone] Sasha Dobbins RN Unavailable Unavailable Encounter Details Date Type Department Care Team (Late Contact Info) Description 01/19/2024 Scanned Document [facility] [address] [place] [address] [place] [id number] Scanning, Generic Provider Social History Tobacco Use Types Packs/Day Years Used Date Smoking Tobacco: Never Smokeless Tobacco: Never Alcohol Use Standard Drinks/Week Comments Never 0 (1 standard drink = 0.6 oz pur e alcohol) PHQ-2 Answer Date Recorded Patient Health Questionnaire-2 Score 0 05/31/2023 Comments Unknown Sex and Gender Information Value Date Recorded Sex Assigned at Not on file Legal Sex Female 2:32 PM EST Gender Identity Not on file Sexual Orientation Not on file COVID-19 Exposure Response Date Recorded In the last 10 days, have yo u been in contact with someone who was confirmed or suspected to have Coronavirus/COVID-19? No / Unsure 01/22/2024 11:41 AM EDT documented as of this encounter Plan of Treatment Upcoming Encounters Date Type Department Care Team (Late Contact Info) Description 03/05/2025 3:00 PM EDT Office Visit [address] [address] Gustavo Garcia MD 703 [facility] 2, [facility] 250 [place] [address] 05/21/2025 11:00 AM EDT Ancillary Procedure [facility] Medical Office Building 917 [facility] 120 [place] [address] 05/21/2025 11:15 AM EDT Office Visit [facility] Medical Office Building 7 [facility] 130 [place] [address] Maxwell Stafford MD 917 [facility] 130 [place] [address] documented as of this encounter Procedures Procedure Name Priority Date/Time Associated Diagnosis Comments ECHOCARDIOGRAM 01/19/2024 documented in this encounter Results * Echocardiogram (01/19/2024) Narrative 01/19/2024 Ordered by an unspecified provider. us Generic Provider Scanning CV ECHO PROCEDURES Fin al Result documented in this encounter Visit Diagnoses Not on filedocumented in this encounter Additional Health Concerns Assessment Noted Time A fall risk assessment has been complete d for the patient 11/28/2023 3:37 PM EDT documented as of this encounter Care Teams Fiction And Nonfiction Author Relationship Specialty Start Date End Date Chester Mehta DO [facility] [place] [address] PCP - General Internal Medicine 08/09/23 Gustavo Garcia MD 703 [facility] 2, [facility] 250 [place] [address] Consulting Physician Cardiology 09/10/23 Maxwell Stafford MD [address] [place] [address] 130 [place] [address] Consulting Physician Cardiology 02/13/24 Sasha Dobbins, buncher machineCommercial Litigation Attorney 03/28/24 04/28/24 documented as of this encounter
--- OUTSIDE RECORDS SUMMARY | 2025-01-21 07:58 | XMS_ITS | Encounter Summary ---
Author Organization [facility] Address [address] [place] [address] Phone Care Team Providers Care Canteen Manager Name Role Phone TysonChester Primary Care Provider [phone] Gustavo Garcia MD Unavailable [phone] Maxwell Stafford MD Unavailable [phone] Sasha Dobbins RN Unavailable Unavailable Encounter Details Date Type Department Care Team (Late Contact Info) Description 01/20/2024 Scanned Document [facility] [address] [place] [phone] Scanning, Generic Provider Social History Tobacco Use [...] Description 03/05/2025 3:00 PM EDT Office Visit [address] [address] Gustavo Garcia MD 703 [facility] 2, [address] [place] [address] 05/21/2025 11:00 AM EDT Ancillary Procedure [facility] Medical Office Building 917 [facility] 120 [place] [address] 05/21/2025 11:15 AM EDT Office Visit [facility] Medical Office [place] [address] [facility] 130 [place] [address] Maxwell Stafford MD [address] [place] [address] documented as of this encounter Visit Diagnoses Not on filedocumented in this encounter Additional Health Concerns Assessment Noted Time A fall risk assessment has been complete d for the patient 11/28/2023 3:37 PM EDT documented as of this encounter Care Teams Canteen Manager Relationship Specialty Start Date End Date Chester Mehta DO [address] [place] [address] PCP - General Internal Medicine 08/09/23 Gustavo Garcia MD 703 [facility] 2, [facility] 250 [place] [address] Consulting Physician Cardiology 09/10/23 Maxwell Stafford MD [address] [place] [address] Consulting Physician Cardiology 02/13/24 Sasha Dobbins, game engineerHedis Analyst 03/28/24 04/28/24 documented as of this encounter
--- OUTSIDE RECORDS SUMMARY | 2025-01-21 07:58 | XMS_ITS | Encounter Summary ---
Author Organization [facility] Address [address] [place] [address] Phone Care Team Providers Care Storage Receipt Poster Name Role Phone Chester Mehta DO Primary Care Provider [phone] Chester Mehta DO Primary Care Provider [phone] Gustavo Garcia MD Unavailable [phone] Maxwell Stafford MD Unavailable [phone] Sasha Dobbins RN Unavailable Unavailable Encounter Details Date Type Department Care Team (Late st Contact Info) Description 04/11/2021 Orders Only [facility] LEGACY [address] [place] [address] Conversion, Onbase Social History Tobacco Use Types Packs/Day Years [...] Description 03/05/2025 3:00 PM EDT Office Visit [facility] 703 [facility] 250 [place] [address] Gustavo Garcia MD 703 [facility] 2, [address] [place] [address] 05/21/2025 11:00 AM EDT Ancillary Procedure [facility] Medical Office Building [address] [place] [address] 120 [place] [address] 05/21/2025 11:15 AM EDT Office Visit [facility] Medical Office Building [address] [phone] Maxwell Stafford MD [address] [address] Scheduled Orders Name Type Priority Associated Diagnoses Orde r Schedule OUTSIDE LAB SCAN Lab Ordered: 04/11/2021 documented as of this encounter Visit Diagnoses Not on filedocumented in this encounter Care Teams Storage Receipt Poster Relationship Specialty Start Date End Date Chester Mehta DO PCP - General 08/20/99 08/08/23 Chester Mehta DO [address] [place] [address] PCP - General Internal Medicine 08/09/23 Gustavo Garcia MD 3 [facility] 2, [address] [address] Consulting Physician Cardiology 09/10/23 Maxwell Stafford MD [address] [place] [address] Consulting Physician Cardiology 02/13/24 Sasha Dobbins, press tender smoke signalBiology Internship 03/28/24 04/28/24 documented as of this encounter
--- OUTSIDE RECORDS SUMMARY | 2025-01-21 07:58 | XMS_ITS | Clinical Summary ---
Author Organization [facility] Address [address] [place] [address] Care Team Providers Care Trauma Therapist Name Role Phone TysonChester Primary Care Provider [phone] Allergies Active Allergy Reactions Criticality Noted Date Comments Fentanyl 02/19/2023 Other Reaction(s): Unknown Sulfa Antibiotics 02/19/2023 Other Reaction(s): Unknown Medications acetaminophen (Tylenol Extra Strength) 500 MG tablet every 6 (six) hours. Active atorvastatin (Lipitor) 40 MG tablet 1 (one) time each day at the same time. Active Biotin w/ Vitamins C & E (Hair Skin & Nails Gummies) 1250-7.5-7.5 MCG-MG-UNT chewable tablet as directed Orally Active escitalopram (Lexapro) 10 MG tablet 1 (one) time each day at the same time. Active rivaroxaban (Xarelto) 15 MG tablet 1 (one) time each day at the same time. Active rOPINIRole (Requip) 1 MG tablet 1 (one) time each day at the same time. Active sotalol (Betapace) 80 MG tablet Take 80 mg by mouth in the morning and 80 mg before bedtime. 4 Active HYDROcodone-acet aminophen ([place]) 10-325 MG tablet 1 tablet 4 Active gabapentin (Neurontin) 100 MG capsule Take 100 mg by mouth Daily 4 Active dilTIAZem CD (Cardizem CD) 180 MG 24 hr capsule Take 180 mg by mouth Daily Active cyclobenzaprine (Flexeril) 5 MG tablet Active clotrimazole-bet amethasone (Lotrisone) cream Twice daily 4 Active fluocinonide (Lidex) 0.05 % external solutionIndicati ons:Rash and other nonspecific skin eruption Apply to affected areas on the scalp, up to twice a day when flared, 30 day supply 60 mL 11 4 Active Active Problems Problem Noted Date Diagnosed Date Gallbladder disorder 02/22/2023 Bilious vomiting with nausea 02/19/2023 Calculus of gallbladder with acute on chronic cholecystitis without obstruction 02/19/2023 Degenerative disc disease, lumbar 02/19/2023 Hiatal hernia 02/19/2023 Lumbar spondylosis 02/19/2023 Acquired hallux rigidus 02/19/2023 Porokeratosis 02/19/2023 Right upper quadrant pain 02/19/2023 Paroxysmal atrial fibrillation 08/25/2015 Overview (02/22/2023): Patient was sitting in chair and developed consistent PACs, which then converted to uncontrolled atrial fibrillation HR max 150 HR low 98; patient asymptomatic, transferred back to bed without complications. Hemodynamically stable otherwise. Today 08/26/2015; SR Plan: -Convert to Metoprolol 12.5 mg PO BID -Continue to monitor HR and rhythm. - Keep Magnesium >2 and K>4 . Delirium, subacute 08/24/2015 Overview (02/22/2023): 08/24/2015 seroquel at bedtime seems to sundown per ICU staff. Currently patient is A&O x3; appropriate, and in good mood. No confusion, disorientation, or sundowners today 08/26/2015. Plan: -continue Seroquel for now. -Continue to monitor mood, mental status and activity. . Hypertension 08/19/2015 Overview (02/22/2023): HTN likely due to uncontrolled pain, no h/o essential HTN Plan: -Continue IV Hydralazine PRN for now. -Continue to monitor BP and HR. -Convert metoprolol to 12.5 mg PO BID . H/O iron deficiency anemia 08/18/2015 Overview (02/22/2023): PMH of iron deficiency anemia: Followed by Dr. Cash ([facility] hematology). Last iron infusion was December 2014. Today 08/26/2015 H&H 9.4 Plan: - Monitor CBC - Monitor SOB, fatigue, weakness. . Mechanical venous thromboemb olism (VTE) prophylaxis in place 08/18/2015 Overview (02/22/2023): Heparin 5000 U twice daily subcutaneously and BRENDA hose. No signs or symptoms of DVT/PE or bleeding at time of discharge. The patient is at high risk for VTE. Plan: - Continue current regimen - Encourage continued ambulation while at home. . Pain, postoperative, acute 08/18/2015 Overview (02/22/2023): Status post laparotomy, hiatal hernia repair 08/17/15. Current regimen:oxycodone and tylenol. Plan: - Continue current regimen. Continue to re-assess pain control to keep pain level at 4 or less - Bowel regimen: bisacodyl suppository daily prn. . Intestinal malabsorption 12/11/2014 Anemia 09/26/2012 Iron deficiency 09/26/2012 Immunizations Immunization Administration Dates Next Due Influenza, High Dose Seasonal, Preservative Free 05/20/2019 Influenza, Seasonal, Quadrivalent, Adjuvanted Influenza, injectable, quadrivalent, preservativ e free 05/20/2018 Influenza, seasonal, injectable 05/20/2020,05/05 Influenza, trivalent, adjuvanted 06/12/2018 Pneumococcal Polysaccharide PPSV23 11/07/2018, Tdap 07/11/2021 Zoster, live 09/05/2012 Family History Medical History Relation Name Comments Diabetes Father Hypertension Father Mental illness Father Cancer Other family hx Diabetes Other family hx Heart disease Other family hx Relation Name Status Comments Father Mother Other family hx Social History Tobacco Use Types Packs/Day Years Used Date Smoking Tobacco: Never Smokeless Tobacco: Never Tobacco Cessation:Counseling Given: Not Answered Alcohol Use Standard Drinks/Week Comments Never 0 (1 standard drink = 0.6 oz pur e alcohol) caffeine: none Comments Unknown Sex and Gender Information Value Date Recorded Sex Assigned at Not on file Legal Sex Female 8:34 PM EDT Gender Identity Not on file Sexual Orientation Not on file Last Filed Vital Signs Vital Sign Reading Time Taken Comments Blood Pressure 118/70 11/09/2022 12:00 PM EDT Pulse - - Temperature - - Respiratory Rate - - Oxygen Saturation - - Inhaled Oxygen Concentration - - Weight 72.1 kg (159 lb) 02/22/2023 3:38 PM EDT Height 149.9 cm (4' 11 ) 02/22/2023 3:38 PM EDT Body Mass Index 32.11 02/22/2023 3:38 PM EDT Plan of Treatment Upcoming Encounters Date Type Department Care Team ([facility] st Contact Info) Description 02/12/2025 10:30 AM EDT Office Visit [facility] 112 [facility] 120 [place] [address] Joseph Dobbins DPM 300 [facility] 5 [place] [address] Health Maintenance Due Date Last Done Comments Influenza Vaccine (Season Ended) 2025 06/29/2023, 05/26/2022, 06/14/2021, Additional history exists Pneumococcal Vaccine: 65+ Years Completed 11/07/2018, 07/06/2016, 03/20/2015, Additional history exists Insurance [employer] Care Teams Trauma Therapist Relationship Specialty Start Date End Date Chester Mehta DO [address] [place] [address] PCP - General Internal Medicine 02/14/23
--- OUTSIDE RECORDS SUMMARY | 2025-01-21 07:58 | XMS_ITS | Encounter Summary ---
Author Organization [facility] Address [address] [place] [address] Phone Care Team Providers Care [place] Trawl Net Name Role Phone TysonChester Jovani MORENO Primary Care Provider [phone] Gustavo Garcia MD Unavailable [phone] Maxwell Stafford MD Unavailable [phone] Encounter Details Date Type Department Care Team (Late st Contact Info) Description 07/03/2024 Scanned Document [facility] [address] [place] [phone] Scanning, Generic Provider Social History Tobacco Use [...] any time in the past 12 [facility], were you homeless or living in a detention (including now)? No 03/21/2024 Comments Unknown Sex [...] Description 03/05/2025 3:00 PM EDT Office Visit [facility] 703 [facility] 250 [place] [address] Gustavo Garcia MD 703 [facility] 2, [facility] 250 [place] [address] 05/21/2025 11:00 AM EDT Ancillary Procedure [facility] Medical Office Building 7 [facility] 120 [place] [address] 05/21/2025 11:15 AM EDT Office Visit [facility] Medical Office Building [address] [place] [address] 130 [place] [address] Maxwell Stafford MD [address] [place] [address] documented as of this encounter Visit Diagnoses Not on filedocumented in this encounter Additional Health Concerns Assessment Noted Time A fall risk assessment has been complete d for the patient 04/24/2024 3:34 PM EDT documented as of this encounter Care Teams [place] Trawl Net Relationship Specialty Start Date End Date Chester Mehta DO [address] [place] [address] PCP - General Internal Medicine 08/09/23 Gustavo Garcia MD 703 [facility] 2, [facility] 250 [place] [address] Consulting Physician Cardiology 09/10/23 Maxwell Stafford MD [address] [place] [address] 130 [place] [address] Consulting Physician Cardiology 02/13/24 documented as of this encounter
--- OUTSIDE RECORDS SUMMARY | 2025-01-21 07:58 | XMS_ITS | Encounter Summary ---
Author Organization [facility] Address [address] [place] [address] Phone Care Team Providers Care Demographic Analyst Name Role Phone Chester Mehta DO Primary Care Provider [phone] Chester Mehta DO Primary Care Provider [phone] Gustavo Garcia MD Unavailable [phone] Maxwell Stafford MD Unavailable [phone] Sasha Dobbins RN Unavailable Unavailable Encounter Details Date Type Department Care Team (Late st Contact Info) Description 08/01/2021 Orders Only [facility] LEGACY [address] [place] [address] Conversion, Onbase Social History Tobacco Use Types [...] Description 03/05/2025 3:00 PM EDT Office Visit [facility] 703 [facility] 250 [place] [address] Gustavo Garcia MD 703 [facility] 2, [address] [place] [address] 05/21/2025 11:00 AM EDT Ancillary Procedure [facility] Medical Office Building [address] [place] [address] 120 [place] [address] 05/21/2025 11:15 AM EDT Office [facility] Medical Office Building 917 [facility] 130 [place] [address] Maxwell Stafford MD 917 [facility] 130 [place] [address] Scheduled Orders Name Type Priority Associated Diagnoses Orde r Schedule OUTSIDE LAB SCAN Lab Ordered: 08/01/2021 OUTSIDE LAB SCAN Lab Ordered: 08/01/2021 documented as of this encounter Visit Diagnoses Not on filedocumented in this encounter Care Teams Demographic Analyst Relationship Specialty Start Date End Date Chester Mehta DO PCP - General 08/20/99 08/08/23 Chester Mehta DO [facility]76 [facility] [place] [address] PCP - General Internal Medicine 08/09/23 Gustavo Garcia MD 703 [facility] 2, [facility] 250 [place] [address] Consulting Physician Cardiology 09/10/23 Maxwell Stafford MD [address] [place] [address] Consulting Physician Cardiology 02/13/24 Sasha Dobbins, polishing machine operator helperProcess Manager 03/28/24 04/28/24 documented as of this encounter
--- OUTSIDE RECORDS SUMMARY | 2025-01-21 07:58 | XMS_ITS | Encounter Summary ---
Author Organization [facility] Address [address] [place] [address] Phone Care Team Providers Care Cleaning Laborer Name Role Phone TysonChester Primary Care Provider [phone] Gustavo Garcia MD Unavailable [phone] Maxwell Stafford MD Unavailable [phone] Sasha Dobbins RN Unavailable Unavailable Encounter Details Date Type Department Care Team (Late Contact Info) Description 02/08/2024 Scanned Document [facility] [address] [place] [phone] Scanning, Generic Provider Social History Tobacco Use [...] Description 03/05/2025 3:00 PM EDT Office Visit [address] [address] Gustavo Garcia MD 703 [facility] 2, [address] [place] [address] 05/21/2025 11:00 AM EDT Ancillary Procedure [facility] Medical Office Building [address] [facility] 120 [place] [address] 05/21/2025 11:15 AM EDT Office Visit [facility] Medical Office [place] [address] [facility] 130 [place] [address] Maxwell Stafford MD [address] [place] [address] documented as of this encounter Visit Diagnoses Not on filedocumented in this encounter Additional Health Concerns Assessment Noted Time A fall risk assessment has been complete d for the patient 11/28/2023 3:37 PM EDT documented as of this encounter Care Teams Cleaning Laborer Relationship Specialty Start Date End Date Chester Mehta DO [address] [place] [address] PCP - General Internal Medicine 08/09/23 Gustavo Garcia MD 703 [facility] 2, [facility] 250 [place] [address] Consulting Physician Cardiology 09/10/23 Maxwell Stafford MD [address] [place] [address] Consulting Physician Cardiology 02/13/24 Sasha Dobbins, supervisor agency appointmentsAccounting Software Specialist 03/28/24 04/28/24 documented as of this encounter
--- OUTSIDE RECORDS SUMMARY | 2025-01-21 07:58 | XMS_ITS | Clinical Summary ---
Author Organization [facility] Address [address] [place] [address] Care Team Providers Care Retail Grocer Name Role Phone Unavailable Primary Care Provider Unavailabl e Social History Tobacco Use Types Packs/Day Years Used Date Smoking Tobacco: Never Assessed Comments Unknown Sex and Gender Information Value Date Recorded Sex Assigned at Not on file Legal Sex Female 11:24 AM EST Gender Identity Not on file Sexual Orientation Not on file Plan of Treatment Not on file
--- OUTSIDE RECORDS SUMMARY | 2025-01-21 07:58 | XMS_ITS | Encounter Summary ---
Author Organization [facility] Address [address] [place] [address] Phone Care Team Providers Care Fish Drier Name Role Phone Chester Mehta DO Primary Care Provider [phone] Chester Mehta DO Primary Care Provider [phone] Gustavo Garcia MD Unavailable [phone] Maxwell Stafford MD Unavailable [phone] Sasha Dobbins RN Unavailable Unavailable Encounter Details Date Type Department Care Team (Late st Contact Info) Description 01/02/2023 Orders Only [facility] LEGACY [address] [place] [address] Conversion, Onbase Social History Tobacco Use Types [...] Description 03/05/2025 3:00 PM EDT Office Visit [facility] 703 [facility] 250 [place] [address] Gustavo Garcia MD 703 [facility] 2, Eduardo [address] [place] [address] 05/21/2025 11:00 AM EDT Ancillary Procedure [facility] Medical Office Building [address] [place] [address] 120 [place] [address] 05/21/2025 11:15 AM EDT Office Visit [facility] Medical Office Building [address] [phone] Maxwell Stafford MD [address] [address] Scheduled Orders Name Type Priority Associated Diagnoses Orde r Schedule OUTSIDE LAB SCAN Lab Ordered: 01/02/2023 documented as of this encounter Visit Diagnoses Not on filedocumented in this encounter Care Teams Fish Drier Relationship Specialty Start Date End Date Chester Mehta DO PCP - General 08/20/99 08/08/23 Chester Mehta DO [address] [place] [address] PCP - General Internal Medicine 08/09/23 Gustavo Garcia MD 3 [facility] 2, [address] [address] Consulting Physician Cardiology 09/10/23 Maxwell Stafford MD [address] [place] [address] Consulting Physician Cardiology 02/13/24 Sasha Dobbins, adjunct professor of englishFluorescent Lighting Model Maker 03/28/24 04/28/24 documented as of this encounter
--- OUTSIDE RECORDS SUMMARY | 2025-01-21 07:58 | XMS_ITS | Encounter Summary ---
Author Organization [facility] Address [address] [place] [address] Phone Care Team Providers Care Assistant Administrator Name Role Phone TysonChester Jovani MORENO Primary Care Provider [phone] Gustavo Garcia MD Unavailable [phone] Maxwell Stafford MD Unavailable [phone] Encounter Details Date Type Department Care Team (Late st Contact Info) Description 07/24/2024 Scanned Document [facility] [address] [place] [id number] Scanning, Generic Provider Social History Tobacco Use [...] any time in the past 12 m [facility], were you homeless or living in a nursing home (including now)? No 03/21/2024 Comments Unknown [...] suspected to have Coronavirus/COVID-19? No / Unsure 07/07/2024 10:16 AM EST documented as of this encounter Functional Status * Are you deaf or do you have serious difficulty hearing? Answer Date of Assessment Author No 03/27/2024 1:02 PM Avery Figueroa RN * Are you blind or do you have serious difficulty seeing, even when wearing glasses? Answer Date of Assessment Author No 03/27/2024 1:02 PM Avery Figueroa RN * Do you have serious difficulty walking or climbing stairs? Answer Date of Assessment Author No 03/27/2024 1:02 PM Avery Fiugeroa RN * Do you have serious difficulty dressing or bathing? Answer Date of Assessment Author No 03/27/2024 1:02 PM Avery Figueroa RN * Because of a physical, mental, or emotional condition, do you have serious difficulty doing errandsalone such as visiting the doctor? Answer Date of Assessment Author No 03/27/2024 1:02 PM Avery Figueroa RN documented as of this encounter Mental Status * Because of a physical, mental, or emotional condition, do you have serious difficulty concentrating, remembering, or making decisions? (5 years old or older) Answer Entry Date Author No 03/27/2024 1:02 PM EDT Vera Ang, RN documented in this encounter Plan of Treatment Upcoming Encounters Date Type Department Care Team (Late st Contact Info) Description 03/05/2025 3:00 PM EDT Office Visit [facility] 703 [facility] 250 [place] [address] Gustavo Garcia MD 703 [facility] 2, [facility] 250 [place] [address] 05/21/2025 11:00 AM EDT Ancillary Procedure [facility] Medical Office Building 917 [facility] 120 [place] [address] 05/21/2025 11:15 AM EDT Office Visit [facility] Medical Office Building 7 [facility] 130 [place] [address] Maxwell Stafford MD [address] [place] [address] documented as of this encounter Visit Diagnoses Not on filedocumented in this encounter Additional Health Concerns Assessment Noted Time A fall risk assessment has been complete d for the patient 04/24/2024 3:34 PM EDT documented as of this encounter Care Teams Assistant Administrator Relationship Specialty Start Date End Date Chester Mehta DO [address] [place] [address] PCP - General Internal Medicine 08/09/23 Gustavo Garcia MD 703 [facility] 2, [facility] 250 [place] [address] Consulting Physician Cardiology 09/10/23 Mawxell Stafford MD [address] [place] [address] 130 [place] [address] Consulting Physician Cardiology 02/13/24 documented as of this encounter
--- OUTSIDE RECORDS SUMMARY | 2025-01-21 07:58 | XMS_ITS | Encounter Summary ---
Author Organization [facility] Address [address] [place] [address] Phone Care Team Providers Care Medical Education Manager Name Role Phone TysonChester Jovani MORENO Primary Care Provider [phone] Gustavo Garcia MD Unavailable [phone] Maxwell Stafford MD Unavailable [phone] Encounter Details Date Type Department Care Team (Late st Contact Info) Description 07/22/2024 Scanned Document [facility] [address] [place] [phone] Scanning, Generic Provider Social History Tobacco Use [...] any time in the past 12 m [facility], were you homeless or living in a senior care (including now)? No 03/21/2024 Comments Unknown Sex [...] Description 03/05/2025 3:00 PM EDT [facility] 703 [facility] 250 [place] [address] Gustavo Garcia MD 703 [facility] 2, [facility] 250 [place] [address] 05/21/2025 11:00 AM EDT Ancillary Procedure [facility] Medical Office Building 917 [facility] 120 [place] [address] 05/21/2025 11:15 AM EDT Office Visit [facility] Medical Office Building 7 [facility] 130 [place] [address] Maxwell Stafford MD [address] [place] [address] documented as of this encounter Visit Diagnoses Not on filedocumented in this encounter Additional Health Concerns Assessment Noted Time A fall risk assessment has been complete d for the patient 04/24/2024 3:34 PM EDT documented as of this encounter Care Teams Medical Education Manager Relationship Specialty Start Date End Date Chester Mehta DO [address] [place] [address] PCP - General Internal Medicine 08/09/23 Gustavo Garcia MD 703 [facility] 2, [facility] 250 [place] [address] Consulting Physician Cardiology 09/10/23 Maxwell Stafford MD [address] [place] [address] 130 [place] [address] Consulting Physician Cardiology 02/13/24 documented as of this encounter
--- OUTSIDE RECORDS SUMMARY | 2025-01-21 07:58 | XMS_ITS | Encounter Summary ---
Author Organization [facility] Address [address] [place] [address] Phone Care Team Providers Care Wood Turning Lathe Operator Name Role Phone Chester Mehta DO Primary Care Provider [phone] Chester Mehta DO Primary Care Provider [phone] Gustavo Garcia MD Unavailable [phone] Maxwell Stafford MD Unavailable [phone] Sasha Dobbins RN Unavailable Unavailable Encounter Details Date Type Department Care Team (Late st Contact Info) Description 01/11/2022 Orders Only [facility] LEGACY [address] [place] [address] Conversion, Onbase Social History Tobacco Use Types [...] Description 03/05/2025 3:00 PM EDT Office Visit [facility] 703 [facility] 250 [place] [address] Gustavo Garcia MD 703 [facility] 2, Edu[address] 250 [place] [address] 05/21/2025 11:00 AM EDT Ancillary Procedure [facility] Medical Office Building [address] [place] [address] 120 [place] [address] 05/21/2025 11:15 AM EDT Office Visit [facility] Medical Office Building [address] [phone] Maxwell Stafford MD [address] [address] Scheduled Orders Name Type Priority Associated Diagnoses Orde r Schedule OUTSIDE LAB SCAN Lab Ordered: 01/11/2022 documented as of this encounter Visit Diagnoses Not on filedocumented in this encounter Care Teams Wood Turning Lathe Operator Relationship Specialty Start Date End Date Chester Mehta DO PCP - General 08/20/99 08/08/23 Chester Mehta DO 1076 [place] [address] PCP - General Internal Medicine 08/09/23 Gustavo Garcia MD 3 [facility] 2, [address] [address] Consulting Physician Cardiology 09/10/23 Maxwell Stafford MD [address] [place] [address] Consulting Physician Cardiology 02/13/24 Sasha Dobbins, research hydraulic engineerService Operations Manager 03/28/24 04/28/24 documented as of this encounter
--- OUTSIDE RECORDS SUMMARY | 2025-01-21 07:58 | XMS_ITS | Encounter Summary ---
Author Organization [facility] Address [address] [place] [address] Phone Care Team Providers Care Tip Inserter Name Role Phone Chester Mehta DO Primary Care Provider [phone] Chester Mehta DO Primary Care Provider [phone] Gustavo Garcia MD Unavailable [phone] Maxwell Stafford MD Unavailable [phone] Sasha Dobbins RN Unavailable Unavailable Encounter Details Date Type Department Care Team (Late st Contact Info) Description 12/16/2020 Orders Only [facility] LEGACY [address] [place] [address] Conversion, Onbase Social History Tobacco Use Types [...] Description 03/05/2025 3:00 PM EDT Office Visit [facility] 703 [facility] 250 [place] [address] Gustavo Garcia MD 703 [facility] 2, Eduardo 250 [place] [address] 05/21/2025 11:00 AM EDT Ancillary Procedure [facility] Medical Office Building [address] [place] [address] 120 [place] [address] 05/21/2025 11:15 AM EDT Office Visit [facility] Medical Office Building [address] [phone] Maxwell Stafford MD [address] [address] Scheduled Orders Name Type Priority Associated Diagnoses Orde r Schedule OUTSIDE LAB SCAN Lab Ordered: 12/16/2020 documented as of this encounter Visit Diagnoses Not on filedocumented in this encounter Care Teams Tip Inserter Relationship Specialty Start Date End Date Chester Mehta DO PCP - General 08/20/99 08/08/23 Chester Mehta DO 1076 [place] [address] PCP - General Internal Medicine 08/09/23 Gustavo Garcia MD 3 [facility] 2, [address] [address] Consulting Physician Cardiology 09/10/23 Maxwell Stafford MD [address] [place] [address] Consulting Physician Cardiology 02/13/24 Sasha Dobbins, seismograph computerPatient Access Associate 03/28/24 04/28/24 documented as of this encounter
--- OUTSIDE RECORDS SUMMARY | 2025-01-21 07:58 | XMS_ITS | Encounter Summary ---
Author Organization [facility] Address [address] [place] [address] Phone Care Team Providers Care Education Consultant Name Role Phone Chester Mehta DO Primary Care Provider [phone] Chester Mehta DO Primary Care Provider [phone] Gustavo Garcia MD Unavailable [phone] Maxwell Stafford MD Unavailable [phone] Sasha Dobbins RN Unavailable Unavailable Encounter Details Date Type Department Care Team (Late st Contact Info) Description 05/16/2021 Orders Only [facility] LEGACY [address] [place] [address] Conversion, Onbase Social History Tobacco Use Types [...] Description 03/05/2025 3:00 PM EDT Office Visit [facility] 703 [facility] 250 [place] [address] Gustavo Garcia MD 703 [facility] 2, Eduardo 250 [place] [address] 05/21/2025 11:00 AM EDT Ancillary Procedure [facility] Medical Office Building [address] [place] [address] 120 [place] [address] 05/21/2025 11:15 AM EDT Office Visit [facility] Medical Office Building [address] [phone] Maxwell Stafford MD [address] [address] Scheduled Orders Name Type Priority Associated Diagnoses Orde r Schedule OUTSIDE LAB SCAN Lab Ordered: 05/16/2021 documented as of this encounter Visit Diagnoses Not on filedocumented in this encounter Care Teams Education Consultant Relationship Specialty Start Date End Date Chester Mehta DO PCP - General 08/20/99 08/08/23 Chester Mehta DO 1076 [place] [address] PCP - General Internal Medicine 08/09/23 Gustavo Garcia MD 3 [facility] 2, [address] [address] Consulting Physician Cardiology 09/10/23 Maxwell Stafford MD [address] [place] [address] Consulting Physician Cardiology 02/13/24 Sasha Dobbins, carbon lamp cleanerStudent Accounts Coordinator 03/28/24 04/28/24 documented as of this encounter
--- OUTSIDE RECORDS SUMMARY | 2025-01-21 07:58 | XMS_ITS | Encounter Summary ---
Author Organization [facility] Address [address] [place] [address] Phone Care Team Providers Care Ethanol Operator Name Role Phone TysonChester Primary Care Provider [phone] Gustavo Garcia MD Unavailable [phone] Maxwell Stafford MD Unavailable [phone] Sasha Dobbins RN Unavailable Unavailable Encounter Details Date Type Department Care Team (Late Contact Info) Description 09/13/2023 Scanned Document [facility] [address] [place] [address] Scanning, Generic Provider Social History Tobacco Use [...] suspected to have Coronavirus/COVID-19? No / Unsure 08/21/2023 1:18 PM EST documented as of this encounter Plan of Treatment Upcoming Encounters Date Type Department Care Team (Late st Contact Info) Description 03/05/2025 3:00 PM EDT Office Visit [place] [address] [address] Gustavo Garcia MD 703 [facility] 2, [facility] 250 [place] [address] 05/21/2025 11:00 AM EDT Ancillary Procedure [facility] Medical Office Building 7 [facility] 120 [place] [address] 05/21/2025 11:15 AM EDT Office Visit [facility] Medical Office [place] [address] [facility] 130 [place] [address] Maxwell Stafford MD [address] [place] [address] documented as of this encounter Visit Diagnoses Not on filedocumented in this encounter Additional Health Concerns Assessment Noted Time A fall risk assessment has been complete d for the patient 05/31/2023 3:24 PM EDT documented as of this encounter Care Teams Ethanol Operator Relationship Specialty Start Date End Date Chester Mehta DO [address] [place] [address] PCP - General Internal Medicine 08/09/23 Gustavo Garcia MD 703 [facility] 2, [facility] 250 [place] [address] Consulting Physician Cardiology 09/10/23 Maxwell Stafford MD [address] [place] [address] Consulting Physician Cardiology 02/13/24 Sasha Dobbins, well surveying engineerLicensing Worker 03/28/24 04/28/24 documented as of this encounter
--- OUTSIDE RECORDS SUMMARY | 2025-01-21 07:58 | XMS_ITS | Encounter Summary ---
Author Organization [facility] Address [address] [place] [address] Phone Care Team Providers Care Automotive Electrical Helper Name Role Phone Chester Mehta DO Primary Care Provider [phone] Chester Mehta DO Primary Care Provider [phone] Gustavo Garcia MD Unavailable [phone] Maxwell Stafford MD Unavailable [phone] Sasha Dobbins RN Unavailable Unavailable Encounter Details Date Type Department Care Team (Late st Contact Info) Description 12/14/2020 Orders Only [facility] LEGACY [address] [place] [address] Conversion, Onbase Social History Tobacco Use Types [...] Description 03/05/2025 3:00 PM EDT Office Visit [facility] 703 [facility] 250 [place] [address] Gustavo Garcia MD 703 [facility] 2, Edu[address] 250 [place] [address] 05/21/2025 11:00 AM EDT Ancillary Procedure [facility] Medical Office Building [address] [place] [address] 120 [place] [address] 05/21/2025 11:15 AM EDT Office Visit [facility] Medical Office Building 917 [facility] 130 [place] [address] Maxwell Stafford MD 917 [facility] 130 [place] [address] Scheduled Orders Name Type Priority Associated Diagnoses Orde r Schedule OUTSIDE LAB SCAN Lab Ordered: 12/14/2020 OUTSIDE LAB SCAN Lab Ordered: 12/14/2020 documented as of this encounter Visit Diagnoses Not on filedocumented in this encounter Care Teams Automotive Electrical Helper Relationship Specialty Start Date End Date Chester Mehta DO PCP - General 08/20/99 08/08/23 Chester Mehta DO 1076 [place] [address] PCP - General Internal Medicine 08/09/23 Gustavo Garcia MD 703 [facility] 2, [facility] 250 [place] [address] Consulting Physician Cardiology 09/10/23 Maxwell Stafford MD [address] [place] [address] Consulting Physician Cardiology 02/13/24 Sasha Dobbins, back shoe operatorSafety And Skill Based Pay Manager 03/28/24 04/28/24 documented as of this encounter
--- OUTSIDE RECORDS SUMMARY | 2025-01-21 07:58 | XMS_ITS | Encounter Summary ---
Author Organization [facility] Address [address] [place] [address] Phone Care Team Providers Care Lace Winder Name Role Phone TysonChester Primary Care Provider [phone] Gustavo Garcia MD Unavailable [phone] Maxwell Stafford MD Unavailable [phone] Sasha Dobbins RN Unavailable Unavailable Encounter Details Date Type Department Care Team (Late Contact Info) Description 02/07/2024 Scanned Document [facility] [address] [place] [address] Scanning, Generic Provider Social History Tobacco Use [...] Description 03/05/2025 3:00 PM EDT Office Visit [address] [address] Gustavo Garcia MD 703 [facility] 2, [facility] 250 [place] [address] 05/21/2025 11:00 AM EDT Ancillary Procedure [facility] Medical Office Building [address] [facility] 120 [place] [address] 05/21/2025 11:15 AM EDT Office Visit [facility] Medical Office Building [address] [facility] 130 [place] [address] Maxwell Stafford MD [address] [facility] 130 [place] [address] documented as of this encounter Procedures Procedure Name Priority Date/Time Associated Diagnosis Comments ECHOCARDIOGRAM 02/07/2024 documented in this encounter Results * Echocardiogram (02/07/2024) Narrative 02/07/2024 Ordered by an unspecified provider. us Generic Provider Scanning CV ECHO PROCEDURES Fin al Result documented in this encounter Visit Diagnoses Not on filedocumented in this encounter Additional Health Concerns Assessment Noted Time A fall risk assessment has been complete d for the patient 11/28/2023 3:37 PM EDT documented as of this encounter Care Teams Lace Winder Relationship Specialty Start Date End Date Chester Mehta DO [facility] [place] [address] PCP - General Internal Medicine 08/09/23 Gustavo Garcia MD 703 [facility] 2, [facility] 250 [place] [address] Consulting Physician Cardiology 09/10/23 Maxwell Stafford MD [address] [place] [address] 130 [place] [address] Consulting Physician Cardiology 02/13/24 Sasha Dobbins, steel detailerEye Care Professional 03/28/24 04/28/24 documented as of this encounter
--- OUTSIDE RECORDS SUMMARY | 2025-01-21 07:58 | XMS_ITS | Encounter Summary ---
Author Organization [facility] Address [address] [place] [address] Phone Care Team Providers Care Butcher All Round Name Role Phone Chester Mehta DO Primary Care Provider [phone] Chester Mehta DO Primary Care Provider [phone] Gustavo Garcia MD Unavailable [phone] Maxwell Stafford MD Unavailable [phone] Sasha Dobbins RN Unavailable Unavailable Encounter Details Date Type Department Care Team (Late st Contact Info) Description 06/23/2021 Orders Only [facility] [address] [place] [address] Conversion, Onbase Social History Tobacco Use Types [...] Description 03/05/2025 3:00 PM EDT Office Visit [facility] 703 [facility] 250 [place] [address] Gustavo Garcia MD 703 [facility] 2, [address] [place] [address] 05/21/2025 11:00 AM EDT Ancillary Procedure [facility] Medical Office Building [address] [place] [address] 120 [place] [address] 05/21/2025 11:15 AM EDT Office Visit [facility] Medical Office Building [address] [phone] Maxwell Stafford MD [address] [address] Scheduled Orders Name Type Priority Associated Diagnoses Orde r Schedule OUTSIDE LAB SCAN Lab Ordered: 06/23/2021 documented as of this encounter Visit Diagnoses Not on filedocumented in this encounter Care Teams Butcher All Round Relationship Specialty Start Date End Date Chester Mehta DO PCP - General 08/20/99 08/08/23 Chester Mehta DO [address] [place] [address] PCP - General Internal Medicine 08/09/23 Gustavo Garcia MD 3 [facility] 2, [address] [address] Consulting Physician Cardiology 09/10/23 Maxwell Stafford MD [address] [place] [address] Consulting Physician Cardiology 02/13/24 Sasha Dobbins, [place] construction supervisorCommunications Associate 03/28/24 04/28/24 documented as of this encounter
--- OUTSIDE RECORDS SUMMARY | 2025-01-21 07:58 | XMS_ITS | Encounter Summary ---
Author Organization [facility] Address [address] [place] [address] Care Team Providers Care Frameman Name Role Phone Chester Mehta Primary Care Provider [phone] Source Comments In the event this information is protected by the Federal Confidentiality of Alcohol and Drug AbusePatient Records regulations: The Federal rules restrict any use of the information to criminally investigate or prosecute any alcohol or drug abuse patient.[facility] Encounter Details Date Type Department Care Team (Late st Contact Info) Description 08/06/2015 Abstract [facility] [address] [place], [place] [id number] Yobany Li MD [address] [id number] Social History Tobacco Use Types Packs/Day Years [...] hearing? Answer Date of Assessment Author No 03/25/2015 3:03 PM Ever Del Cid * Are you blind or do you have serious difficulty seeing, even when wearing glasses? Answer Date of Assessment Author No 03/25/2015 3:03 PM Ever Del Cid * Do you have serious difficulty walking or climbing stairs? Answer Date of Assessment Author No 03/25/2015 3:03 PM Ever Del Cid * Do you have difficulty dressing or bathing? Answer Date of Assessment Author No 03/25/2015 3:03 PM Ever Del Cid * Because of a physical, mental, or emotional condition, do you have difficulty doing errands alone such as visiting a doctor's office or shopping? Answer Date of Assessment Author No 03/25/2015 3:03 PM Ever Del Cid documented as of this encounter Mental Status * Because of a physical, mental, or emotional condition, do you have serious difficulty concentrating, remembering, or making decisions? Answer Entry Date Author No 03/25/2015 3:03 PM Ever Del Cid documented in this encounter Plan of Treatment Not on file documented as of this encounter Visit Diagnoses Not on filedocumented in this encounter Care Teams Frameman Relationship Specialty Start Date End Date Chester Mehta DO PCP - General Internal Medicine 11/30/11 documented as of this encounter
--- OUTSIDE RECORDS SUMMARY | 2025-01-21 07:58 | XMS_ITS | Encounter Summary ---
Author Organization [facility] Address [address] [place] [address] Phone Care Team Providers Care Field Broomer Name Role Phone Chester Mehta DO Primary Care Provider [phone] Chester Mehta DO Primary Care Provider [phone] Gustavo Garcia MD Unavailable [phone] Maxwell Stafford MD Unavailable [phone] Sasha Dobbins RN Unavailable Unavailable Encounter Details Date Type Department Care Team (Late st Contact Info) Description 07/28/2020 Orders Only [facility] [address] [place] [address] Conversion, Onbase Social History Tobacco Use Types [...] Description 03/05/2025 3:00 PM EDT Office Visit [facility] 703 [facility] 250 [place] [address] Gustavo Garcia MD 703 [facility] 2, [address] [place] [address] 05/21/2025 11:00 AM EDT Ancillary Procedure [facility] Medical Office Building [address] [place] [address] 120 [place] [address] 05/21/2025 11:15 AM EDT Office Visit [facility] Medical Office Building [address] [address] Maxwell Stafford MD [address] [address] Scheduled Orders Name Type Priority Associated Diagnoses Orde r Schedule OUTSIDE LAB SCAN Lab Ordered: 07/28/2020 documented as of this encounter Visit Diagnoses Not on filedocumented in this encounter Care Teams Field Broomer Relationship Specialty Start Date End Date Chester Mehta DO PCP - General 08/20/99 08/08/23 Chester Mehta DO [address] [place] [address] PCP - General Internal Medicine 08/09/23 Gustavo Garcia MD 703 [facility] 2, [address] [address] Consulting Physician Cardiology 09/10/23 Maxwell Stafford MD [address] [place] [address] Consulting Physician Cardiology 02/13/24 Sasha Dobbins, water/wastewater project engineerExamining Officer 03/28/24 04/28/24 documented as of this encounter
--- OUTSIDE RECORDS SUMMARY | 2025-01-21 07:58 | XMS_ITS | Encounter Summary ---
Author Organization [facility] Address [address] [place] [address] Phone Care Team Providers Care Video Production Intern Name Role Phone TysonChester Primary Care Provider [phone] Gustavo Garcia MD Unavailable [phone] Maxwell Stafford MD Unavailable [phone] Sasha Dobbins RN Unavailable Unavailable Encounter Details Date Type Department Care Team (Late Contact Info) Description 09/24/2023 Scanned Document [facility] [address] [place] [phone] Scanning, Generic Provider Social History Tobacco Use [...] suspected to have Coronavirus/COVID-19? No / Unsure 09/19/2023 12:46 PM EST documented as of this encounter Plan of Treatment Upcoming Encounters Date Type Department Care Team (Late st Contact Info) Description 03/05/2025 3:00 PM EDT Office Visit [place] [address] [address] Gustavo Garcia MD 703 [facility] 2, [address] [place] [address] 05/21/2025 11:00 AM EDT Ancillary Procedure [facility] Medical Office Building 7 [facility] 120 [place] [address] 05/21/2025 11:15 AM EDT Office Visit [facility] Medical Office Building 7 [facility] 130 [place] [address] Maxwell Stafford MD [address] [place] [address] documented as of this encounter Procedures Procedure Name Priority Date/Time Associated Diagnosis Comments OUTSIDE IMAGING SCAN 09/24/2023 documented in this encounter Results * OUTSIDE IMAGING SCAN (09/24/2023) Anatomical Region Laterality Modality Other Narrative 09/24/2023 Ordered by an unspecified provider. us Generic Provider Scanning OUTSIDE SCAN Final Result documented in this encounter Visit Diagnoses Not on filedocumented in this encounter Additional Health Concerns Assessment Noted Time A fall risk assessment has been complete d for the patient 09/19/2023 1:07 PM EST documented as of this encounter Care Teams Video Production Intern Relationship Specialty Start Date End Date Chester Mehta DO [address] [place] [address] PCP - General Internal Medicine 08/09/23 Gustavo Garcia MD 703 [facility] 2, [facility] 250 [place] [address] Consulting Physician Cardiology 09/10/23 Maxwell Stafford MD [address] [place] [address] Consulting Physician Cardiology 02/13/24 Sasha Dobbins, electrical engineerVat House Laborer 03/28/24 04/28/24 documented as of this encounter
--- OUTSIDE RECORDS SUMMARY | 2025-01-21 07:58 | XMS_ITS | Encounter Summary ---
Author Organization [facility] Address [address] [place] [address] Phone Care Team Providers Care Clinical Microbiologist Name Role Phone Chester Mehta DO Primary Care Provider [phone] Chester Mehta DO Primary Care Provider [phone] Gustavo Garcia MD Unavailable [phone] Maxwell Stafford MD Unavailable [phone] Sasha Dobbins RN Unavailable Unavailable Encounter Details Date Type Department Care Team (Late st Contact Info) Description 03/09/2022 Orders Only [facility] [address] [place] [address] Conversion, Onbase Social History Tobacco Use Types [...] 3:00 PM EDT Office Visit [facility] 703 [facility] 250 [place] [address] Gustavo Garcia MD 703 [facility] 2, [address] [place] [address] 05/21/2025 11:00 AM EDT Ancillary Procedure [facility] Medical Office Building [address] [place] [address] 120 [place] [address] 05/21/2025 11:15 AM EDT Office Visit [facility] Medical Office Building [address] [phone] Maxwell Stafford MD [address] [address] Scheduled Orders Name Type Priority Associated Diagnoses Orde r Schedule OUTSIDE LAB SCAN Lab Ordered: 03/09/2022 documented as of this encounter Visit Diagnoses Not on filedocumented in this encounter Care Teams Clinical Microbiologist Relationship Specialty Start Date End Date Chester Mehta DO PCP - General 08/20/99 08/08/23 Chester Mehta DO 10[address] [place] [address] PCP - General Internal Medicine 08/09/23 Gustavo Garcia MD 3 [facility] 2, [address] [address] Consulting Physician Cardiology 09/10/23 Maxwell Stafford MD [address] [place] [address] Consulting Physician Cardiology 02/13/24 Sasha Dobbins, top dyeing machine tenderWood Gluer 03/28/24 04/28/24 documented as of this encounter
--- OUTSIDE RECORDS SUMMARY | 2025-01-21 07:58 | XMS_ITS | Encounter Summary ---
Author Organization [facility] Address [address] [place] [address] Phone Care Team Providers Care Center Lead Consultant Name Role Phone Chester Mehta DO Primary Care Provider [phone] Gustavo Garcia MD Unavailable [phone] Maxwell Stafford MD Unavailable [phone] Sasha Dobbins RN Unavailable Unavailable Encounter Details Date Type Department Care Team (Late st Contact Info) Description 01/18/2024 Scanned Document [facility] [address] [place] [phone] Scanning, Generic Provider Social History Tobacco Use [...] EDT Office Visit [facility] 703 [facility] 250 [place] [address] Gustavo Garcia MD 703 [facility] 2, [address] [place] [address] 05/21/2025 11:00 AM EDT Ancillary Procedure [facility] Building 917 [facility] 120 [place] [address] 05/21/2025 11:15 AM EDT Office Visit [facility] Medical Office Building 917 [facility] 130 [place] [address] Maxwell Stafford MD [address] [address] documented as of this encounter Procedures Procedure Name Priority Date/Time Associated Diagnosis Comments OUTSIDE IMAGING SCAN 01/18/2024 documented in this encounter Results * OUTSIDE IMAGING SCAN (01/18/2024) Anatomical Region Laterality Modality Other Narrative 01/18/2024 Ordered by an unspecified provider. us Generic Provider Scanning OUTSIDE SCAN Final Result documented in this encounter Visit Diagnoses Not on filedocumented in this encounter Additional Health Concerns Assessment Noted Time A fall risk assessment has been complete d for the patient 11/28/2023 3:37 PM EDT documented as of this encounter Care Teams Center Lead Consultant Relationship Specialty Start Date End Date Chester Mehta DO [address] [place] [address] PCP - General Internal Medicine 08/09/23 Gustavo Garcia MD [address] [place] [address] 2, [facility] 250 [place] [address] Consulting Physician Cardiology 09/10/23 Maxwell Stafford MD [address] [place] [address] 130 [place] [address] Consulting Physician Cardiology 02/13/24 Sasha Dobbins, acetylene operatorCorner Cutter 03/28/24 04/28/24 documented as of this encounter
--- OUTSIDE RECORDS SUMMARY | 2025-01-21 07:58 | XMS_ITS | Encounter Summary ---
Author Organization [facility] Address [address] [place] [address] Care Team Providers Care Sand Control Worker Name Role Phone Chester Mehta DO Primary Care Provider [phone] Encounter Details Date Type Department Care Team (Late Contact Info) Description 02/21/[address] [facility] 703 [facility] 150 [place] [phone] Wilbur Watson DO 703 [facility] 150 [place] [address] Social History Tobacco Use Types Packs/Day Years Used Date Smoking Tobacco: Never Tobacco Cessation:Counseling Given: Not Answered [...] Care Team (Late st Contact Info) Description 02/12/2025 10:30 AM EDT Office Visit [facility] 112 [facility] 120 [place] [address] Joseph Dobbins DPM 3006 [facility] 5 [place] [address] documented as of this encounter Visit Diagnoses Not on filedocumented in this encounter Care Teams Sand Control Worker Relationship Specialty Start Date End Date Chester Mehta DO [address] [place] [address] PCP - General Internal Medicine 02/14/23 documented as of this encounter
--- OUTSIDE RECORDS SUMMARY | 2025-01-21 07:58 | XMS_ITS | Encounter Summary ---
Author Organization [facility] Address [address] [place] [address] Phone Care Team Providers Care Teacher Selection Specialist Name Role Phone Tyson Chester Hahn DO Primary Care Provider Gustavo Garcia MD Unavailable Maxwell Stafford MD Unavailable [phone] Sasha Dobbins RN Unavailable Unavailable Reason for Visit * Reason Comments Med Refill Encounter Details Date Type Department Care Team (Late st Contact Info) Description 04/20/2024 Refill [facility] Medical Office Building [address] [place] [address] Maxwell Stafford MD [address] [place] [address] Longstanding persistent atrial fibrillation (Multi) Social History Tobacco Use Types Packs/Day Years [...] any time in the past 12 m [facility], were you homeless or living [...] suspected to have Coronavirus/COVID-19? No / Unsure 04/17/2024 10:20 AM EDT documented as of this encounter Functional Status * Are you deaf or do you have serious difficulty hearing? Answer Date of Assessment Author No 03/27/2024 1:02 PM EDT Avery Ang, ROSA * Are you blind or do you have serious difficulty seeing, even when wearing glasses? Answer Date of Assessment Author No 03/27/2024 1:02 PM EDT Avery Ang, ROSA * Do you have serious difficulty walking or climbing stairs? Answer Date of Assessment Author No 03/27/2024 1:02 PM EDT Avery Ang RN * Do you have serious difficulty dressing or bathing? Answer Date of Assessment Author No 03/27/2024 1:02 PM EDT Avery Ang, RN * Because of a physical, mental, or emotional condition, do you have serious difficulty doing errandsalone such as visiting the doctor? Answer Date of Assessment Author No 03/27/2024 1:02 PM EDT Avery Agn RN documented as of this encounter Mental Status * Because of a physical, mental, or emotional condition, do you have serious difficulty concentrating, remembering, or making decisions? (5 years old or older) Answer Entry Date Author No 03/27/2024 1:02 PM EDT Avery Ang RN documented in this encounter Miscellaneous Notes * Telephone Encounter - Maxwell Stafford MD - 04/22/2024 9:20 AM EDT Is this a new prescription or this is a refill. The orders are written as a new prescription. Please verify. documented in this encounter Plan of Treatment Upcoming Encounters Date Type Department Care Team (Late st Contact Info) Description 03/05/2025 3:00 PM EDT Office Visit [address] [address] Gustavo Garcia MD [address] [place] [address] 05/21/2025 11:00 AM EDT Ancillary Procedure [facility] Medical Office Building [address] [place] [address] 05/21/2025 11:15 AM EDT Office Visit [facility] Medical Office Building [address] [place] [address] Maxwell Stafford MD [address] [place] [address] documented as of this encounter Visit Diagnoses Diagnosis Longstanding persistent atrial fibrillation (Multi) documented in this encounter Additional Health Concerns Assessment Noted Time A fall risk assessment has been complete d for the patient 11/28/2023 3:37 PM EDT documented as of this encounter Care Teams Teacher Selection Specialist Relationship Specialty Start Date End Date Chester Mehta DO [address] [place] [address] PCP - General Internal Medicine 08/09/23 Gustavo Garcia MD [address] [place] [address] 2, [facility] 250 [place] [address] Consulting Physician Cardiology 09/10/23 Maxwell Stafford MD [address] [place] [address] 130 [place] [address] Consulting Physician Cardiology 02/13/24 Sasha Dobbins, imaging science professorMetal Base Blocker 03/28/24 04/28/24 documented as of this encounter
--- OUTSIDE RECORDS SUMMARY | 2025-01-21 07:58 | XMS_ITS | Encounter Summary ---
Author Organization [facility] Address [address] [place] [address] Phone Care Team Providers Care Elementary Principal Name Role Phone TysonChester Jovani MORENO Primary Care Provider [phone] Gustavo Garcia MD Unavailable [phone] Maxwell Stafford MD Unavailable [phone] Encounter Details Date Type Department Care Team (Late st Contact Info) Description 07/21/2024 Scanned Document [facility] [address] [place] [phone] Scanning, Generic Provider Social History Tobacco Use [...] any time in the past 12 m [facility], were you homeless or living in a care home (including now)? No 03/21/2024 Comments Unknown [...] Description 03/05/2025 3:00 PM EDT Office Visit [facility] 703 [facility] 250 [place] [address] Gustavo Garcia MD 703 [facility] 2, [address] [address] 05/21/2025 11:00 AM EDT Ancillary Procedure [facility] Medical Office Building 917 [facility] 120 [place] [address] 05/21/2025 11:15 AM EDT Office Visit [facility] Medical Office Building 7 [facility] 130 [place] [address] Maxwell Stafford MD 917 [facility] 130 [place] [address] documented as of this encounter Procedures Procedure Name Priority Date/Time Associated Diagnosis Comments OUTSIDE IMAGING SCAN 07/21/2024 documented in this encounter Results * OUTSIDE IMAGING SCAN (07/21/2024) Anatomical Region Laterality Modality Other Narrative 07/21/2024 Ordered by an unspecified provider. Generic Provider Scanning OUTSIDE SCAN Final Result documented in this encounter Visit Diagnoses Not on filedocumented in this encounter Additional Health Concerns Assessment Noted Time A fall risk assessment has been complete d for the patient 04/24/2024 3:34 PM EDT documented as of this encounter Care Teams Elementary Principal Relationship Specialty Start Date End Date [place] [address] PCP - General Internal Medicine 08/09/23 Gustavo Garcia MD [address] [place] [address] 2, [facility] 250 [place] [address] Consulting Physician Cardiology 09/10/23 Maxwell Stafford MD [address] [address] Consulting Physician Cardiology 02/13/24 documented as of this encounter
[2025-01-21 08:15] LABS: Basophils Absolute Auto 0.1 10^3/uL (0.0-0.1); Basophils Percent Auto 0.7 % (0.2-2.0); Eosinophils Absolute Auto 0.3 10^3/uL (0.0-0.7); Eosinophils Percent Auto 3.7 % (0.9-7.0); Hematocrit 40.7 % (36.0-48.0); Hemoglobin 13.3 g/dL (12.0-16.0); Immature Granulocytes Abs Auto 0.02 10^3/uL (0.00-0.03); Immature Granulocytes Pct Auto 0.3 % (0.0-0.5); Lymphocytes Absolute Auto 1.5 10^3/uL (1.2-3.8); Lymphocytes Percent Auto 19.2 % (20.5-60.0); Mean Corpuscular HGB Conc 32.7 g/dL (29.9-35.2); Mean Corpuscular Hemoglobin 30.4 pg (26.7-34.0); Mean Corpuscular Volume 93.1 fL (81.0-99.0); Mean Platelet Volume 10.1 fL (9.5-13.5); Monocytes Absolute Auto 0.7 10^3/uL (0.3-0.8); Monocytes Percent Auto 8.5 % (1.7-12.0); Neutrophils Absolute Auto 5.2 10^3/uL (1.4-6.5); Neutrophils Percent Auto 67.6 % (43.0-75.0); Platelet Count 243 10^3/uL (150-450); Red Blood Count 4.37 10^6/uL (4.20-5.40); White Blood Count 7.6 10^3/uL (4.0-11.0)
[2025-01-21 08:53] LABS: Alanine Aminotransferase 33 U/L (14-59); Albumin Globulin Ratio 0.9; Albumin Level 3.3 g/dL (3.4-5.0); Alkaline Phosphatase 105 U/L (46-116); Anion Gap 14.3; Aspartate Amino Transferase 30 U/L (15-37); BUN Creatinine Ratio 19.2; Bilirubin Total 1.1 mg/dL (0.2-1.0); Carbon Dioxide 27.9 mmol/L (21.0-32.0); Chloride 105 mmol/L (98-107); Estimated GFR (African America 52 (>=60 mL/min/1.73m^2); Estimated GFR (Non-African Ame 43 (>=60 mL/min/1.73m^2); Globulin 3.7 g/dL; Glucose 98 mg/dL (74-106); Potassium 4.2 mmol/L (3.5-5.1); Sodium 143 mmol/L (136-145); Thyroid Stimulating Hormone 5.492 uIU/mL (0.358-3.740)
== END 2025-01-21 07:51 | disposition home or self-care (01) ==
LOC: LAB 07:56
PROVIDERS: PCP Internal Medicine; Visit Provider Internal Medicine
DX: I25.10 Atherosclerotic heart disease of native coronary artery without angina pectoris (principal); I48.19 Other persistent atrial fibrillation; N18.32 Chronic kidney disease, stage 3b; Z79.899 Other long term (current) drug therapy
CPT/HCPCS: 36415; 80053; 84443; 85025

== ENCOUNTER 2025-05-03 06:47 | Inpatient (IN) | payer OTHER, SELFPAY ==
--- OUTSIDE RECORDS SUMMARY | 2024-05-15 12:25 | XMS_ITS | Encounter Summary ---
Author Organization [facility] Address [address] [facility] [address]en monserr[address] [place] [id number] Care Team Providers Care 5Th Grade Teacher Name Role Phone Unavailable Primary Care Provider Unavailabl e Reason for Visit * Tests/Procedures (Routine) - Closed Specialty Diagnoses / Procedures Referred By Ashtyn marshall Referred To Contact Gastroenterology Diagnoses Gastroesophageal reflux disease without esophagitis Nausea and vomiting, unspecified vomiting type Epigastric pain Chas Powell, [place] INTERN [address] [place] [address] Phone: tel: fax: S ENDOSCOPY [address] [place] [address] Phone: tel: Referral ID Status Reason Start Date Expiration Date V isits Requested Visits Authorized [id number] Closed Transfer of Care-[facility] 04/23/2024 04/23/2025 1 1 Encounter Details Date Type Department Care Team (Latest Contact Info) Description 05/15/2024 12:25 PM EDT Hospital Encounter [facility] Multispecialty Endoscopy [address] [place] [address] Social History Tobacco Use Types Packs/Day Years [...]
--- OUTSIDE RECORDS SUMMARY | 2025-04-28 17:25 | XMS_ITS | Encounter Summary ---
Author Organization [facility] Address [address] [place] [address] Phone Care Team Providers Care Spanish Literature Professor Name Role Phone TysonChester Primary Care Provider [phone] Gustavo Garcia MD Unavailable [phone] Maxwell Stafford MD Unavailable [phone] Encounter Details Date Type Department Care Team (Late st Contact Info) Description 04/28/2025 5:25 PM EDT Lab [place] [address] [place] [phone] Other persistent atrial fibrillation (Primary Dx) Social History Tobacco Use Types Packs/Day Years [...] any time in the past 12 m [facility], were you homeless or living in a half-way (including now)? No 03/21/2024 Comments Unknown Sex [...] Upcoming Encounters Date Type Department Care Team (Latest Contact Info) Description 05/26/2025 2:40 PM EDT Office Visit [facility] 703 [facility] 250 [place] [address] Gustavo Garcia MD 703 [facility] 2, [address] [place] [address] 05/27/2025 11:30 AM EDT Appointment [facility] 630 [place] [address] Arron Veloz MD 125 [facility] Medical Office [facility], [address] [place] [address] 05/28/2025 8:30 AM EDT Hospital Encounter [facility] 630 [place] [address] Maxwell Stafford MD [address] [place] [address] Persistent atrial fibrillation (Multi) 05/28/2025 8:30 AM EDT - 05/28/2025 12:30 PM EDT Surgery [address] [place] [address] Maxwell Stafford MD [address] [place] [address] Ablation A-Fib [[address] (CPT )] 05/29/2025 2:15 PM EDT Office Visit [facility] Medical [facility] Building [address] [place] [address] Maxwell Stafford MD [address] [place] [address] documented as of this encounter Goals Goal Patient Goal Type Associated Problems Recent Progress Patient-Stated? Author Autogenera anne marie Goal Care Plan Autogenerated Problem No Batch Discontinue, Automatic documented as of this encounter Procedures Procedure Name Priority Date/Time Associated Diagnosis Comments PHLEB CHARGE - VENIPUNCTURE (LAB USE ONLY) Routine 04/28/2025 12:51 PM EDT Other persistent atrial fibrillation documented in this encounter Results * Phleb Charge - Venipuncture (Lab Use Only) (04/28/2025 12:51 PM EDT) Blood Venous blood specimen / Unknown Venipuncture / Unknown 04/28/2025 12:51 PM EDT 04/28/2025 5:23 PM EDT us Maxwell Stafford MD LAB BLOOD ORDERABLES Final Res ult [facility] [address] [place] [address] documented in this encounter Visit Diagnoses Diagnosis Persistent atrial fibrillation (Multi)- Primary Atrial fibrillation Other persistent atrial fibrillation- Primary Persistent atrial fibrillation (Multi) Atrial fibrillation documented in this encounter Additional Health Concerns Active Problems Noted Date Diagnosed Date Autogenerated Problem 04/08/2025 Assessment Noted Time A fall risk assessment has been complete d for the patient 09/05/2024 11:18 AM EST documented as of this encounter Care Teams Spanish Literature Professor Relationship Specialty Start Date End Date Chester Mehta DO [address] [place] [address] PCP - General Internal Medicine 08/09/23 Gustavo Garcia MD 703 [facility] 2, [facility] 250 [place] [address] Consulting Physician Cardiology 09/10/23 Maxwell Stafford MD 917 [facility] 130 [place] [address] Consulting Physician Cardiology 02/13/24 documented as of this encounter
--- OUTSIDE RECORDS SUMMARY | 2025-04-30 16:00 | XMS_ITS | Encounter Summary ---
Author Organization [facility] Address [address] [place] [address] Care Team Providers Care Rand Butting Machine Operator Name Role Phone Chester Mehta Jovani MORENO Primary Care Provider Reason for Visit * Reason Comments Toenail Care Encounter Details Date Type Department Care Team (Latest Contact Info) Description 04/30/2025 4:00 PM EDT Procedure [facility] 112 [facility] 120 [place] [address] Joseph Dobbins, DPElvira 3006 [facility] [place] [address] Cellulitis of left foot (Primary Dx); Pain due to onychomycosis of toenails of both feet; Acquired deformity of left toe; Acquired deformity of right toe; Foot ulcer, left, with fat layer exposed (HCC) Social History Tobacco Use Types Packs/Day Years Used Date Smoking Tobacco: Never Smokeless Tobacco: Never Tobacco Cessation:Counseling Given: Yes Alcohol Use Standard Drinks/Week Comments Never 0 (1 standard drink = 0.6 oz pur e alcohol) caffeine: none Comments Unknown Sex and Gender Information Value Date Recorded Sex Assigned at Not on file Legal Sex Female 8:34 PM EDT Gender Identity Not on file Sexual Orientation Not on file documented as of this encounter Last Filed Vital Signs Vital Sign Reading Time Taken Comments Blood Pressure - - Pulse - - Temperature - - Respiratory Rate 18 04/30/2025 4:13 PM EDT Oxygen Saturation - - Inhaled Oxygen Concentration - - Weight 54.9 kg (121 lb) 04/30/2025 4:13 PM EDT Height 149.9 cm (4' 11 ) 04/30/2025 4:13 PM EDT Body Mass Index 24.44 04/30/2025 4:13 PM EDT documented in this encounter Progress Notes * Joseph Dobbins, NICK - 04/30/2025 4:50 PM EDT Patient: Lesa Fermin : 1940 PCP: Chester Mehta, DO SUBJECTIVE This is a 84 y.o. female that presents today with a CC of elongated, thick nails. Pt states nails have been elongated and thick for many years and cause pain with ambulation in shoegear. Pt has tried previous treatment with minimal relief. Pt presents today for nail care and treatment. Patient also has complaints of painful hammertoe type deformities has tried accommodative shoe gearwith some improvement still has pain particularly for the right 2nd and 3rd digits with discussion of Sx in past and was dispensed toe spacers on prior visit. She was considering possible sx in the future. Patient to have a cardiac ablation in May 28 and states she would like surgery after this She presents today with complaints of pain and redness to her left 3rd toe for the past week and states negative drainage but has painful ambulation and redness to left 3rd toe Patient denies n/f/v/c. Allergies: Allergies Allergen Reactions Fentanyl Other Reaction(s): Unknown Sulfa Antibiotics Other Reaction(s): Unknown Past Medical History: Past Medical History: Diagnosis Date A-fib (HCC) Appendicitis Arthritis Chicken pox COVID-19 Fibromyalgia Heart disease Hernia cerebri (HCC) High blood pressure Pacemaker Stroke (HCC) Tonsillitis Medications: Current Outpatient Medications: acetaminophen (Tylenol Extra Strength) 500 MG tablet, every 6 (six) hours., Disp: , Rfl: atorvastatin (Lipitor) 40 MG tablet, 1 (one) time each day at the same time., Disp: , Rfl: Biotin w/ Vitamins C & E (Hair Skin & Nails Gummies) 1250-7.5-7.5 MCG-MG-UNT chewable tablet, as directed Orally, Disp: , Rfl: clotrimazole-betamethasone (Lotrisone) cream, Twice daily, Disp: , Rfl: cyclobenzaprine (Flexeril) 5 MG tablet, , Disp: , Rfl: dilTIAZem CD (Cardizem CD) 180 MG 24 hr capsule, Take 180 mg by mouth Daily, Disp: , Rfl: escitalopram (Lexapro) 10 MG tablet, 1 (one) time each day at the same time., Disp: , Rfl: fluocinonide (Lidex) 0.05 % external solution, Apply to affected areas on the scalp, up to twice a day when flared, 30 day supply, Disp: 60 mL, Rfl: 11 gabapentin (Neurontin) 100 MG capsule, Take 100 mg by mouth Daily, Disp: , Rfl: HYDROcodone-acetaminophen ([place]) 10-325 MG tablet, 1 tablet, Disp: , Rfl: rivaroxaban (Xarelto) 15 MG tablet, 1 (one) time each day at the same time., Disp: , Rfl: rOPINIRole (Requip) 1 MG tablet, 1 (one) time each day at the same time., Disp: , Rfl: sotalol (Betapace) 80 MG tablet, Take 80 mg by mouth in the morning and 80 mg before bedtime., Disp: , Rfl: Social History: Social History Socioeconomic History Marital status: Spouse name: Not on file Number of children: Not on file Years of education: Not on file Highest education level: Not on file Occupational History Not on file Tobacco Use Smoking status: Never Smokeless tobacco: Never Vaping Use Vaping status: Never Used Substance and Sexual Activity Alcohol use: Never Comment: caffeine: none Drug use: Never Sexual activity: Defer Other Topics Concern Not on file Social History Narrative Not on file Social Drivers of Health Financial Resource Strain: Low Risk (03/21/2024) Received from [facility] Overall Financial Resource Strain (CARDIA) Difficulty of Paying Living Expenses: Not hard at all Food Insecurity: Not on file Transportation Needs: No Transportation Needs (03/24/2024) Received from [facility] PRAPARE - Transportation Lack of Transportation (Medical): No Lack of Transportation (Non-Medical): No Physical Activity: Not on file Stress: Not on file Social Connections: Not on file Intimate Partner Violence: Unknown (02/14/2024) Received from [facility] Fear of Current or Ex-Partner: Not on file Emotionally Abused: Not on file Physically Abused: Not on file Sexually Abused: Not on file Physically or Sexually Abused: Not on file Housing Stability: Low Risk (03/21/2024) Received from [facility] Housing Stability Vital Sign Unable to Pay for Housing in the Last Year: No Number of Times Moved in the Last Year: 1 Homeless in the Last Year: No ROS: General: denies fever, chills, fatigue, malaise Gastrointestinal: denies abdominal pain, ulcers, or changes in appetite or bowel habits Musculoskeletal: positive history of generalized arthritis, denies loss of strength, pain to hip, knees, back Cardiovascular: denies CP, palpitations, irregular rhythms. Positive history of atrial fibrillationand on blood thinner OBJECTIVE LE EXAM: DERM: Elongated thick yellow crumbly nails digits 1 through 10. diminished hair growth b/l feet. Rubor to noted PIPJ regions digits 2 through 5 bilaterally Lateral aspect of the left 3rd toe DIPJ region has a 0.5 cm with 0.5 cm 0.2 cm subcutaneous thickness depth ulceration with negative probe to bone with positive erythema and slight serous drainage VASC: Positive palpable pedal pulses bilaterally NEURO: Gross sensation intact to bilateral feet ORTHO: Positive pain on palpation to toenails of the left 1,2,3,4,5 toes and right 1,2,3,4,5 toes Notable rigid contracture of the right 2nd and 3rd digital deformities with flexion deformities toes 2 through 5 bilaterally Positive pain on palpation left 3rd toe ASSESSMENT 1. Pain due to onychomycosis of toenails of both feet 2. Acquired deformity of left toe 3. Acquired deformity of right toe 4. Foot ulcer, left, with fat layer exposed (HCC) 5. Cellulitis of left foot PLAN Discussed proper foot care with patient today. Debride nails in length and thickness digits 1 through 10 Discussed digital deformities and particularly right and left 2nd and 3rd digital deformities and discussed possible digital deformity surgery including PIPJ arthrodesis with K-wire and postoperativetimeframe in detail patient may consider otherwise continue with toe spacer. She continues to wear accommodative shoe gear Patient apply Betadine to left 3rd toe ulcer for the next week with follow up in [address] on oral antibiotics for cellulitis to her left foot and if condition worsen to contact Podiatry Joseph Dobbins DPM documented in this encounter Plan of Treatment Upcoming Encounters Date Type Department Care Team (Magali dugan Contact Info) Description 05/07/2025 3:00 PM EDT Office Visit [facility] [address] [address] Joseph Dobbins, DPM [address] [address] 07/23/2025 4:20 PM EST Procedure Visit [facility] [address] [address] Joseph Dobbins, NICK [address] [address] documented as of this encounter Visit Diagnoses Diagnosis Cellulitis of left foot- Primary Pain due to onychomycosis of toenails of both feet Acquired deformity of left toe Acquired deformity of right toe Foot ulcer, left, with fat layer exposed (HCC) documented in this encounter Care Teams Rand Butting Machine Operator Relationship Specialty Start Date End Date Chester Mehta DO [address] [place] [phone] PCP - General Internal Medicine 02/14/23 documented as of this encounter
--- OUTSIDE RECORDS SUMMARY | 2025-05-01 14:30 | XMS_ITS | Encounter Summary ---
Author Organization [facility] Address [address] [place] [address] Phone Care Team Providers Care Care Consultant Name Role Phone Chester Mehta Primary Care Provider [phone] Gustavo Garcia MD Unavailable Maxwell Stafford MD Unavailable [phone] Reason for Visit * Imaging (Routine) - Authorized Specialty Diagnoses / Procedures Referred By Ashtyn marshall Referred To Contact Radiology Diagnoses Persistent atrial fibrillation (Multi) Procedures CT angio chest pre pulmonary vein ablation planning gated CT heart structure morphology congenital heart disease w IV contrast Maxwell Stafford MD [address] [facility] [address] [place] [address] Phone: tel: fax: Referral ID Status Reason Start Date Expiration Date Visits Requested Visits Authorized [id number] Authorized Perform Procedure 10/23/2024 10/23/2025 1 1 Encounter Details Date Type Department Care Team (Latest Contact Info) Description 05/01/2025 2:30 PM EDT - 05/01/2025 11:59 PM EDT Hospital Encounter [address] [place] [id number] Pre-op testing Discharge Disposition: Home Social History Tobacco Use Types Packs/Day Years [...] any time in the past 12 [address] [facility], were you homeless or living in a fdc (including now)? No 03/21/2024 Comments Unknown Sex [...] Assessment Author No 03/27/2024 1:02 PM Avery Figueroa, RN * Do you have serious difficulty dressing or bathing? Answer Date of Assessment Author No 03/27/2024 1:02 PM Avery Figueroa, ROSA * Because of a physical, mental, or [...] Entry Date Author No 03/27/2024 1:02 PM Avery Figueroa RN documented in this encounter Medications at Time of Discharge acetaminophen (Tylenol) 325 mg capsule Take 1 capsule (325 mg) by mouth. TAKE 1 TABLET EVERY 4 TO 6 HOURS NEEDED. amiodarone (Pacerone) 200 mg tabletIndications: Persistent atrial fibrillation (Multi) TAKE 1 TABLET BY MOUTH EVERY DAY 90 tablet 1 02/02/2025 atorvastatin (Lipitor) 40 mg tablet Take 1 tablet (40 mg) by mouth once daily. calcium carbonate/vitamin D3 (CALCIUM 600 + D,3, ORAL) Take 600 mg by mouth. cholecalciferol (Vitamin D-3) 50 mcg (2,000 unit) capsule Take 1 capsule (2,000 Units) by mouth once daily. DULoxetine (Cymbalta) [address] capsule Take 1 capsule (30 mg) by mouth once daily. 10/06/2024 furosemide (Lasix) 20 mg tabletIndications: Chronic diastolic heart failure,Shortness of breath TAKE 1 TABLET BY MOUTH EVERY DAY 90 tablet 3 01/05/2025 metoprolol succinate XL (Toprol-XL) 50 mg 24 hr tablet Take 1 tablet (50 mg) by mouth once daily. Do not crush or chew. multivitamin (Daily Multi-Vitamin) tablet Take 1 tablet by mouth once daily. pantoprazole (ProtoNix) 40 mg EC tablet Take 1 tablet (40 mg) by mouth once daily in the morning. Take before meals. Do not crush, chew, or split. rivaroxaban (Xarelto) 15 mg tabletIndications: Other persistent atrial fibrillation Take 1 tablet (15 mg) by mouth once daily in the evening. Take with meals. 90 tablet 3 12/22/2024 rOPINIRole (Requip) 1 mg tablet Take 1 tablet (1 mg) by mouth once daily at bedtime. 07/12/2021 documented as of this encounter Plan of Treatment Upcoming Encounters Date Type Department Care Team (Latest Contact Info) Description 05/26/2025 2:40 PM EDT Office Visit [facility] 703 [facility] [address] [place] [address] Gustavo Garcia MD 703 [facility] 2, [address] [place] [address] 05/27/2025 11:30 AM EDT Appointment [facility] [address] [place] [address] Arron Veloz MD 125 [facility] Medical Office [facility], [address] [place] [address] 05/28/2025 8:30 AM EDT Hospital Encounter [facility] [address] [place] [address] Maxwell Stafford MD [address] [place] [address] Persistent atrial fibrillation (Multi) 05/28/2025 8:30 AM EDT - 05/28/2025 12:30 PM EDT Surgery [facility] [address] [place] [address] Maxwell Stafford MD [address] [place] [address] Ablation A-Fib [60663 (CPT )] 05/29/2025 2:15 PM EDT Office Visit [facility] Medical Office Building [address] [place] [address] Maxwell Stafford MD [address] [place] [address] Pending Results Name Type Priority Associated Diagnoses Date /Time POCT CREATININE AND GFR Lab Routine Pre-op testing 05/01/2025 2:56 PM EDT Scheduled Orders Name Type Priority Associated Diagnoses Orde r Schedule POCT CREATININE AND GFR Lab Routine O nce (Lab) for 1 Occurrences starting 05/01/2025 until 05/01/2025 documented as of this encounter Goals Goal Patient Goal Type Associated Problems Recent Progress Patient-Stated? Author Automaximilian kenney Goal Care Plan Autogenerated Problem No Batch Discontinue, Automatic documented as of this encounter Procedures Procedure Name Priority Date/Time Associated Diagnosis Comments CT ANGIO CHEST PRE PULMONARY VEIN ABLATION PLANNING GATED Routine 05/01/2025 3:37 PM EDT Persistent atrial fibrillation (Multi) POCT CREATININE AND GFR Routine 05/01/2025 2:44 PM EDT documented in this encounter Results * (ABNORMAL) POCT CREATININE AND GFR (05/01/2025 2:44 PM EDT) POCT Creatinine 1.50(H) 0.60 - 1.30 mg/dL 05/01/2025 3:13 PM EDT DORIAN [id number] CT Comment:Hydroxyurea can caus e significant interference with creatinine measurement using the i-STAT device. An alternate method of creatinine measurement must be used in patients treated with hydroxyurea. POCT eGFR 35(L) >=60 mL/min/1.7 3m*2 05/01/2025 3:13 PM EDT DORIAN [id number] CT Comment: Calculations of estimated GFR are performed using the 2020 CKD-EPI Study Refit equation without the race variable for the IDMS-Traceable Creatinine Methods. https://jasn.asnjournals.org/content/early//ASN.0795492368 Blood Venous blood specimen / Unknown Venipuncture / Unknown 05/01/2025 2:44 PM EDT 05/01/2025 3:01 PM EDT us Maxwell Stafford MD LAB BLOOD ORDERABLES Final Res ult DORIAN [id number] CT [address] [facility] [address] [place] [address] documented in this encounter Visit Diagnoses Diagnosis Persistent atrial fibrillation (Multi)- Primary Atrial fibrillation Pre-op testing Unspecified pre-operative examination Persistent atrial fibrillation (Multi) Atrial fibrillation documented in this encounter Administered Medications Inactive Administered Medications - up to 3 most recent administrations Medication Order MAR Action Action Date Dose Rate Site iohexol (OMNIPaque) 350 mg iodine/mL solution 75 mL 75 mL, intravenous, Once in imaging, Starting on Sun05/01/25 at 1537, For 1 dose Given 05/01/2025 3:39 PM EDT 80 mL documented in this encounter Additional Health Concerns Active Problems Noted Date Diagnosed Date Autogenerated Problem 04/08/2025 Assessment Noted Time A fall risk assessment has been complete d for the patient 09/05/2024 11:18 AM EST documented as of this encounter Care Teams Care Consultant Relationship Specialty Start Date End Date Chester Mehta DO [address] [place] [address] PCP - General Internal Medicine 08/09/23 Gustavo Garcia MD 703 [facility], [address] [place] [address] Consulting Physician Cardiology 09/10/23 Maxwell Stafford MD 917 [facility] [address] [place] [address] Consulting Physician Cardiology 02/13/24 documented as of this encounter
[2025-05-03] VITALS (32 sets, daily range): BP systolic 94–135; BP diastolic 51–94; PULSE 77–115; TEMP 36.3–37.1; O2SAT 90–97; BMI 27.4; BMI 27.7
--- OUTSIDE RECORDS SUMMARY | 2025-05-03 06:54 | XMS_ITS | Clinical Summary ---
Author Organization [facility] Address [address] [place] [address] Care Team Providers Care Manager Risk Management Name Role Phone Unavailable Primary Care Provider Unavailabl e Social History Tobacco Use Types Packs/Day Years Used Date Smoking Tobacco: Never Assessed [place] Safety & Environment Answer Date Rec orded Fear of Current or Ex-Partner Not on file Emotionally Abused Not on file 02/14/2024 Physically Abused Not on file 02/14/2024 Sexually Abused Not on file 02/14/2024 Physically or Sexually Abused Not on file Comments Unknown Sex and Gender Information Value Date Recorded Sex Assigned at Not on file Legal Sex Female 9:46 PM EDT Gender Identity Not on file Sexual Orientation Not on file Last Filed Vital Signs Vital Sign Reading Time Taken Comments Blood Pressure 140/86 09/28/2020 1:11 PM EST Pulse 80 08/17/2020 12:06 PM EST Temperature - - Respiratory Rate - - Oxygen Saturation 95% 09/28/2020 1:11 PM EST Inhaled Oxygen Concentration - - Weight 59 kg (130 lb) 09/28/2020 1:12 PM EST Height - - Body Mass Index - - Plan of Treatment Health Maintenance Due Date Last Done Comments Medicare Annual Wellness (AWV) 1940 Depression Screening 1954 Adult Tetanus 1964 Pneumococcal Vaccine: 50+ Ye ars (1 of 1 - PCV) 1992 Zoster Vaccines (1 of 2) 1992 Fall Risk Screening 2007 COVID-19 Vaccine (1 - 2023-2 5 season) 2025 Influenza Vaccine (#1) 2025 HIB Vaccines Aged Out No longer eligi ble based on patient's age to complete this topic HPV Vaccines Aged Out No longer eligi ble based on patient's age to complete this topic IPV Vaccines Aged Out No longer eligi ble based on patient's age to complete this topic Meningococcal B Vaccine Aged Out No l onger eligible based on patient's age to complete this topic Meningococcal Vaccine Aged Out No violeta tato eligible based on patient's age to complete this topic Rotavirus Vaccines Aged Out No longer eligible based on patient's age to complete this topic Insurance [employer]
--- OUTSIDE RECORDS SUMMARY | 2025-05-03 06:54 | XMS_ITS | Encounter Summary ---
Author Organization [facility] Address [address] [place] [address] Care Team Providers Care Powder Blender And Pourer Name Role Phone Chester Mehta DO Primary Care Provider [phone] Source Comments In the event this information is protected by the Federal Confidentiality of Alcohol and Drug AbusePatient Records regulations: The Federal rules restrict any use of the information to criminally investigate or prosecute any alcohol or drug abuse patient.[facility] Encounter Details Date Type Department Care Team (Late st Contact Info) Description 09/16/2015 [facility] [address] [place], [place] [phone] Yobany Li MD [address] [place] [id number] Social History Tobacco Use Types Packs/Day Years [...] on filedocumented in this encounter Care Teams Powder Blender And Pourer Relationship Specialty Start Date End Date Chester Mehta DO PCP - General Internal Medicine 11/30/11 documented as of this encounter
--- OUTSIDE RECORDS SUMMARY | 2025-05-03 06:54 | XMS_ITS | Encounter Summary ---
Author Organization [facility] Address [address] [place] [address] Phone Care Team Providers Care Production Expert Name Role Phone Tyson Chester Hahn DO Primary Care Provider [phone] Gustavo Garcia MD Unavailable [phone] Maxwell Stafford MD Unavailable [phone] Encounter Details Date Type Department Care Team (Late st Contact Info) Description 04/28/2025 Orders Only [address] [place] [phone] Alyse Youssef Social History Tobacco Use Types Packs/Day Years [...] any time in the past 12 m [facility], were you homeless or living in [...] Description 05/26/2025 2:40 PM EDT Office Visit [facility] 703 [facility] 250 [place] [address] Gustavo Garcia MD 703 [facility] 2, [address] [place] [address] 05/27/2025 11:30 AM EDT Appointment [facility] 630 [place] [address] Arron Veloz MD 125 [facility] Medical Office Bldg, [address] [place] [address] 05/28/2025 8:30 AM EDT Hospital Encounter [facility] [address] [place] [address] Maxwell Stafford MD [address] [place] [address] Persistent atrial fibrillation (Multi) 05/28/2025 8:30 AM EDT - 05/28/2025 12:30 PM EDT Surgery [facility] 630 [place] [address] Maxwell Stafford MD [address] [place] [address] Ablation A-Fib [03554 (CPT )] 05/29/2025 2:15 PM EDT Office Visit [facility] Medical Office [address] [address] Maxwell Stafford MD [address] [place] [address] documented as of this encounter Goals Goal Patient Goal Type Associated Problems Recent Progress Patient-Stated? Author Autogenera anne marie Goal Care Plan Autogenerated Problem No Batch Discontinue, Automatic documented as of this encounter Visit Diagnoses Not on filedocumented in this encounter Additional Health Concerns Active Problems Noted Date Diagnosed Date Autogenerated Problem 04/08/2025 Assessment Noted Time A fall risk assessment has been complete d for the patient 09/05/2024 11:18 AM EST documented as of this encounter Care Teams Production Expert Relationship Specialty Start Date End Date Chester Mehta DO [address] [place] [address] PCP - General Internal Medicine 08/09/23 Gustavo Garcia MD [address] [place] [address] 2, [facility] 250 [place] [address] Consulting Physician Cardiology 09/10/23 Maxwell Stafford MD [address] [place] [address] 130 [place] [address] Consulting Physician Cardiology 02/13/24 documented as of this encounter
--- OUTSIDE RECORDS SUMMARY | 2025-05-03 06:54 | XMS_ITS | Encounter Summary ---
Author Organization [facility] Address [address] [place] [address] Care Team Providers Care Arboriculture Teacher Name Role Phone Chester Mehta Primary Care Provider [phone] Encounter Details Date Type Department Care Team (Late Contact Info) Description 02/21/2023 Abstract [facility] 703 [facility] 150 [place] [phone] Wilbur Watson DO 703 [facility] 150 [place] [address] Social History Tobacco Use Types [...] Department Care Team (Late Contact Info) Description 05/07/2025 3:00 PM EDT [facility] 112 [facility] 120 [place] [address] Joseph Dobbins DPM 3009 [facility] 5 [place] [address] 07/23/2025 4:20 PM EST Procedure Visit [facility] 112 [facility] [address] [place] [address] Joseph Dobbins DPM [address] [address] documented as of this encounter Visit Diagnoses Not on filedocumented in this encounter Care Teams Arboriculture Teacher Relationship Specialty Start Date End Date Chester Mehta DO [address] [facility] [place] [address] PCP - General Internal Medicine 02/14/23 documented as of this encounter
--- OUTSIDE RECORDS SUMMARY | 2025-05-03 06:54 | XMS_ITS | Encounter Summary ---
Author Organization [facility] Address [address] [place] [address] Phone Care Team Providers Care Credit Union Field Examiner Name Role Phone TysonChester Jovani MORENO Primary Care Provider [phone] Gustavo Garcia MD Unavailable [phone] Maxwell Stafford MD Unavailable [phone] Encounter Details Date Type Department Care Team (Late st Contact Info) Description 07/24/2024 Scanned Document [facility] [address] [place] [id number] Scanning, Generic Provider Social History Tobacco Use [...] any time in the past 12 m [facility], were you homeless or living [...] Description 05/26/2025 2:40 PM EDT Office Visit [facility] 703 [facility] 250 [place] [address] Gustavo Garcia MD 703 [facility] 2, [address] [place] [address] 05/27/2025 11:30 AM EDT Appointment [facility] 630 [place] [address] Arron Veloz MD 125 [facility] Medical Office [facility], [address] [place] [address] 05/28/2025 8:30 AM EDT Hospital Encounter [facility] 630 [place] [address] Maxwell Stafford MD [address] [place] [address] Persistent atrial fibrillation (Multi) 05/28/2025 8:30 AM EDT - 05/28/2025 12:30 PM EDT Surgery [facility] 630 [place] [address] Maxwell Stafford MD [address] [place] [address] Ablation A-Fib [[id number] (CPT )] 05/29/2025 2:15 PM EDT Office Visit [facility] Medical Office Building [address] [place] [address] Maxwell Stafford MD [address] [place] [address] documented as of this encounter Visit Diagnoses Not on filedocumented in this encounter Additional Health Concerns Assessment Noted Time A fall risk assessment has been complete d for the patient 04/24/2024 3:34 PM EDT documented as of this encounter Care Teams Credit Union Field Examiner Relationship Specialty Start Date End Date Chester Mehta DO [address] [place] [address] PCP - General Internal Medicine 08/09/23 Gustavo Garcia MD [address] [place] [address] 2, [facility] 250 [place] [address] Consulting Physician Cardiology 09/10/23 Maxwell Stafford MD [address] [place] [address] 130 [place] [address] Consulting Physician Cardiology 02/13/24 documented as of this encounter
--- OUTSIDE RECORDS SUMMARY | 2025-05-03 06:54 | XMS_ITS | Encounter Summary ---
Author Organization [facility] Address [address] [facility] [place] [address] Care Team Providers Care Hotel Night Auditor Name Role Phone Sam Mcdaniels MD Unavailable [phone] Michelet Painting MD Unavailable [phone] Encounter Details Date Type Department Care Team (Late st Contact Info) Description 11/26/2024 Hospital Encounter [facility] Multispecialty Endoscopy [address] [place] [address] [id number] Reggie Gutiérrez MD [address] [place] [address] [place] [address] Social History Tobacco Use Types Packs/Day Years Used Date Smoking Tobacco: Never Assessed Comments Unknown Sex and Gender Information Value Date Recorded Sex Assigned at Not on file Legal Sex Female 3:52 PM EDT Gender Identity Not on file Sexual Orientation Not on file documented as of this encounter Plan of Treatment Not on file documented as of this encounter Visit Diagnoses Not on filedocumented in this encounter Care Teams Hotel Night Auditor Relationship Specialty Start Date End Date Sam Mcdaniels MD [address] [place] [address] [place] [address] Physician Gastroenterology 07/26/24 Michelet Painting MD [address] [place] [address] Physician General Surgery 01/24/25 documented as of this encounter
--- OUTSIDE RECORDS SUMMARY | 2025-05-03 06:54 | XMS_ITS | Encounter Summary ---
Author Organization [facility] Address [address] [place] [address] Phone Care Team Providers Care Director Of Enrollment Name Role Phone Chester Mehta DO Primary Care Provider [phone] Chester Mehta DO Primary Care Provider [phone] Gustavo Garcia MD Unavailable [phone] Maxwell Stafford MD Unavailable [phone] Sasha Dobbins RN Unavailable Unavailable Encounter Details Date Type Department Care Team (Late st Contact Info) Description 01/11/2022 Orders Only [facility] LEGACY [address] [place] [address] Conversion, Onbase Social History Tobacco Use Types [...] Description 05/26/2025 2:40 PM EDT Office Visit [facility] 703 [facility] [address] [place] [address] Gustavo Garcia MD 703 [facility] 2, [address] [place] [address] 05/27/2025 11:30 AM EDT Appointment [facility] [address] [place] [address] Arron Veloz MD 125 [address] [facility] Medical Office [facility], [address] [place] [address] 05/28/2025 8:30 AM EDT Hospital Encounter [facility] 630 [place] [address] Maxwell Stafford MD [address] [place] [address] 130 [place] [address] Persistent atrial fibrillation (Multi) 05/28/2025 8:30 AM EDT - 05/28/2025 12:[address] [facility] 630 [place] [address] Maxwell Stafford MD [address] [place] [address] Ablation A-Fib [[id number] (CPT )] 05/29/2025 2:15 PM EDT Office Visit [facility] Medical Office Building [address] [address] Maxwell Stafford MD [address] [place] [address] Scheduled Orders Name Type Priority Associated Diagnoses Orde r Schedule OUTSIDE LAB SCAN Lab Ordered: 01/11/2022 documented as of this encounter Visit Diagnoses Not on filedocumented in this encounter Care Teams Director Of Enrollment Relationship Specialty Start Date End Date Chester Mehta DO PCP - General 08/20/99 08/08/23 Chester Mehta DO [address] [place] [address] PCP - General Internal Medicine 08/09/23 Gustavo Garcia MD [address] [place] [address] 2, [address] [place] [address] Consulting Physician Cardiology 09/10/23 Maxwell Stafford MD [address] [place] [address] 130 [place] [address] Consulting Physician Cardiology 02/13/24 Sasha Dobbins, manager customMusic Worker 03/28/24 04/28/24 documented as of this encounter
--- OUTSIDE RECORDS SUMMARY | 2025-05-03 06:54 | XMS_ITS | Encounter Summary ---
Author Organization [facility] Address [address] [place] [address] Phone Care Team Providers Care Manager Of Health Name Role Phone Chester Mehta DO Primary Care Provider [phone] Chester Mehta DO Primary Care Provider [phone] Gustavo Garcia MD Unavailable [phone] Maxwell Stafford MD Unavailable [phone] Sasha Dobbins RN Unavailable Unavailable Encounter Details Date Type Department Care Team (Late st Contact Info) Description 12/14/2020 Orders Only [facility] LEGACY [address] [place] [address] Conversion, Onbase Social History Tobacco Use Types [...] Description 05/26/2025 2:40 PM EDT Office Visit [facility] 703 [facility] [address] [place] [address] Gustavo Garcia MD 703 [facility] 2, [address] [place] [address] 05/27/2025 11:30 AM EDT Appointment [place] [address] [place] [address] Arron Veloz MD 125 E [facility] Medical Office [facility], [address] [place] [address] 05/28/2025 8:30 AM EDT Hospital Encounter [facility] 630 [place] [address] Maxwell Stafford MD [address] [place] [address] Persistent atrial fibrillation (Multi) 05/28/2025 8:30 AM EDT - 05/28/2025 12:30 PM EDT Surgery [facility] 630 [facility] [place] [address] Maxwell Stafford MD [address] [place] [address] Ablation A-Fib [[id number] (CPT )] 05/29/2025 2:15 PM EDT Office Visit [facility] Medical [facility] Building [address] [place] [address] Maxwell Stafford MD [address] [place] [address] Scheduled Orders Name Type Priority Associated Diagnoses Orde r Schedule OUTSIDE LAB SCAN Lab Ordered: 12/14/2020 OUTSIDE LAB SCAN Lab Ordered: 12/14/2020 documented as of this encounter Visit Diagnoses Not on filedocumented in this encounter Care Teams Manager Of Health Relationship Specialty Start Date End Date Chester Mehta DO PCP - General 08/20/99 08/08/23 Chester Mehta DO [address] [place] [address] PCP - General Internal Medicine 08/09/23 Gustavo Garcia MD 703 [facility] 2, [address] [place] [address] Consulting Physician Cardiology 09/10/23 Maxwell Stafford MD 7 [facility] 130 [place] [address] Consulting Physician Cardiology 02/13/24 Sasha Dobbins, activities therapistConsolidation Accountant 03/28/24 04/28/24 documented as of this encounter
--- OUTSIDE RECORDS SUMMARY | 2025-05-03 06:54 | XMS_ITS | Encounter Summary ---
Author Organization [facility] Address [address] [place] [address] Phone Care Team Providers Care Field Crop Farm Worker Name Role Phone Chester Mehta Primary Care Provider [phone] Gustavo Garcia MD Unavailable [phone] Maxwell Stafford MD Unavailable [phone] Encounter Details Date Type Department Care Team ([facility] st Contact Info) Description 04/24/2025 Orders Only [facility] [address] [phone] Kalyn Sutherland PA-C 125 E [facility] Medical Office [address] [address] Social History Tobacco Use Types Packs/Day Years [...] any time in the past 12 m [facility], were you homeless or living in a fci (including now)? No 03/21/2024 Comments Unknown Sex [...] Avery Figueroa RN documented in this encounter Plan of Treatment Upcoming Encounters Date Type Department Care Team (Latest Contact Info) Description 05/26/2025 2:40 PM EDT Office Visit [facility] 703 [facility] 250 [place] [address] Gustavo Garcia MD 703 [facility] 2, [address] [place] [address] 05/27/2025 11:30 AM EDT Appointment [facility] 630 [facility] [place] [address] Arron Veloz MD 125 [facility] Medical Office [facility], [address] [place] [address] 05/28/2025 8:30 AM EDT Hospital Encounter [address] [place] [address] Maxwell Stafford MD [address] [place] [address] Persistent atrial fibrillation (Multi) 05/28/2025 8:30 AM EDT - 05/28/2025 12:30 PM EDT Surgery [address] [place] [address] Maxwell Stafford MD [address] [place] [address] Ablation A-Fib [[id number] (CPT )] 05/29/2025 2:15 PM EDT Office Visit [facility] Medical Office Building [address] [place] [address] Maxwell Stafford MD [address] [place] [address] documented as of this encounter Goals Goal [...] documented as of this encounter Care Teams Field Crop Farm Worker Relationship Specialty Start Date End Date Chester Mehta DO [address] [place] [address] PCP - General Internal Medicine 08/09/23 Gustavo Garcia MD [address] [place] [address] 250 [place] [address] Consulting Physician Cardiology 09/10/23 Maxwell Stafford MD [address] [place] [address] 130 [place] [address] Consulting Physician Cardiology 02/13/24 documented as of this encounter
--- OUTSIDE RECORDS SUMMARY | 2025-05-03 06:54 | XMS_ITS | Encounter Summary ---
Author Organization [facility] Address [address] [place] [address] Phone Care Team Providers Care Casing Material Weigher Name Role Phone Chester Mehta Primary Care Provider [phone] Gustavo Garcia MD Unavailable [phone] Maxwell Stafford MD Unavailable [phone] Encounter Details Date Type Department Care Team (Late st Contact Info) Description 04/25/2025 Orders Only [facility] [address] [place] [address] Ivelisse Nevarez RN Stage 3a chronic kidney disease (Multi) Social History Tobacco Use Types Packs/Day [...] Description 05/26/2025 2:40 PM EDT Office Visit [facility] 703 [facility] 250 [place] [address] Gustavo Garcia MD 703 [facility] 2, [address] [place] [address] 05/27/2025 11:30 AM EDT Appointment [facility] [address] [facility] [place] [address] Arron Veloz MD 125 [facility] Medical Office Bldg, [address] [place] [address] 05/28/2025 8:30 AM EDT Hospital Encounter [facility] [address] [facility] [place] [address] Maxwell Stafford MD [address] [place] [address] Persistent atrial fibrillation (Multi) 05/28/2025 8:30 AM EDT - 05/28/2025 12:30 PM EDT Surgery [facility] [address] [facility] [place] [address] Maxwell Stafford MD [address] [place] [address] Ablation A-Fib [[id number] (CPT )] 05/29/2025 2:15 PM EDT Office Visit [facility] Medical Office Building [address] [address] Maxwell Stafford MD [address] [place] [address] documented as of this encounter Goals Goal Patient Goal Type Associated Problems Recent Progress Patient-Stated? Author Autogenera anne marie Goal Care Plan Autogenerated Problem No Batch Discontinue, Automatic documented as of this encounter Visit Diagnoses Diagnosis Persistent atrial fibrillation (Multi)- Primary Atrial fibrillation Stage 3a chronic kidney disease (Multi) Persistent atrial fibrillation (Multi) Atrial fibrillation documented in this encounter Additional Health Concerns Active Problems Noted Date Diagnosed Date Autogenerated Problem 04/08/2025 Assessment Noted Time A fall risk assessment has been complete d for the patient 09/05/2024 11:18 AM EST documented as of this encounter Care Teams Casing Material Weigher Relationship Specialty Start Date End Date Chester Mehta DO [address] [place] [address] PCP - General Internal Medicine 08/09/23 Gustavo Garcia MD [address] [place] [address] 2, [facility] 250 [place] [address] Consulting Physician Cardiology 09/10/23 Maxwell Stafford MD [address] [place] [address] 130 [place] [address] Consulting Physician Cardiology 02/13/24 documented as of this encounter
--- OUTSIDE RECORDS SUMMARY | 2025-05-03 06:54 | XMS_ITS | Encounter Summary ---
Author Organization [facility] Address [address] [place] [address] Phone Care Team Providers Care Cloth Brushing And Sueding Supervisor Name Role Phone TysonChester Jovani MORENO Primary Care Provider [phone] Gustavo Garcia MD Unavailable [phone] Maxwell Stafford MD Unavailable [phone] Encounter Details Date Type Department Care Team (Late st Contact Info) Description 04/28/2025 Lab Requisition [facility] [address] [place] [address] Kalyn Sutherland PA-C 125 E [facility] Medical Office Bldg, [address] [place] [address] Chronic kidney disease, stage 3a (Multi) Social History Tobacco Use Types Packs/Day [...] any time in the past 12 m [facility], were you homeless or living in a custodial (including now)? No 03/21/2024 Comments Unknown Sex [...] Assessment Author No 03/27/2024 1:02 PM Avery Figureoa RN * Because of a physical, mental, [...] Description 05/26/2025 2:40 PM EDT Office Visit [facility] 703 [facility] 250 [place] [address] Gustavo Garcia MD 703 [facility] 2, [address] [place] [address] 05/27/2025 11:30 AM EDT Appointment [facility] 630 [place] [address] Arron Veloz MD 125 [facility] Medical Office [facility], [address] [place] [address] 05/28/2025 8:30 AM EDT Hospital Encounter [facility] 630 [place] [address] Maxwell Stafford MD [address] [place] [address] Persistent atrial fibrillation (Multi) 05/28/2025 8:30 AM EDT - 05/28/2025 12:30 PM EDT Surgery [facility] 630 [place] [address] Maxwell Stafford MD [address] [place] [address] Ablation A-Fib [[id number] (CPT )] 05/29/2025 2:15 PM EDT Office Visit [facility] Medical Office Building [address] [place] [address] Maxwell Stafford MD [address] [place] [address] documented as of this encounter Goals Goal Patient Goal Type Associated Problems Recent Progress Patient-Stated? Author Autogenera anne marie Goal Care Plan Autogenerated Problem No Batch Discontinue, Automatic documented as of this encounter Procedures Procedure Name Priority Date/Time Associated Diagnosis Comments CREATININE STAT 04/28/2025 12:52 PM EDT Chronic kidney disease, stage 3a (Multi) documented in this encounter Results * (ABNORMAL) Creatinine (04/28/2025 12:52 PM EDT) Creatinine 1.69(H) 0.50 - 1.05 mg/dL LAB CHEMISTRY METHOD 04/28/2025 3:28 PM EDT [facility] eGFR 30(L) >60 mL/min/1. 73m*2 LAB CHEMISTRY METHOD 04/28/2025 3:28 PM EDT [facility] Comment: Calculations of estimated GFR are performed using the 2020 CKD-EPI Study Refit equation without the race variable for the IDMS-Traceable creatinine methods. https://jasn.asnjournals.org/content/early//ASN.1081333063 Blood Venous blood specimen / Unknown 04/28/2025 12:52 PM EDT 04/28/2025 3:08 PM EDT Kalyn Sutherland PA-C LAB BLOOD ORDERABLES Final Result [facility] [address] [place] [address] documented in this encounter Visit Diagnoses Diagnosis Persistent atrial fibrillation (Multi)- Primary Atrial fibrillation Chronic kidney disease, stage 3a (Multi) Persistent atrial fibrillation (Multi) Atrial fibrillation documented in this encounter Additional Health Concerns Active Problems Noted Date Diagnosed Date Autogenerated Problem 04/08/2025 Assessment Noted Time A fall risk assessment has been complete d for the patient 09/05/2024 11:18 AM EST documented as of this encounter Care Teams Cloth Brushing And Sueding Supervisor Relationship Specialty Start Date End Date [place] [address] PCP - General Internal Medicine 08/09/23 Gustavo Garcia MD [address] [place] [address] 2, [facility] 250 [place], [place] [address] Consulting Physician Cardiology 09/10/23 Maxwell Stafford MD [address] [place] [address] 130 [place] [address] Consulting Physician Cardiology 02/13/24 documented as of this encounter
--- OUTSIDE RECORDS SUMMARY | 2025-05-03 06:54 | XMS_ITS | Clinical Summary ---
Author Organization [facility] Address [address] [place] [address], [address] [place] [address] Care Team Providers Care Fire Control Technician B Name Role Phone Unavailable Primary Care Provider [...]
--- OUTSIDE RECORDS SUMMARY | 2025-05-03 06:54 | XMS_ITS | Encounter Summary ---
Author Organization [facility] Address [address] [place] [address] Phone Care Team Providers Care Business Area Director Name Role Phone TysonChester Jovani MORENO Primary Care Provider [phone] Gustavo Garcia MD Unavailable [phone] Maxwell Stafford MD Unavailable [phone] Encounter Details Date Type Department Care Team (Late st Contact Info) Description 07/22/2024 Scanned Document [facility] [address] [place] [id number] Scanning, Generic Provider Social History Tobacco Use [...] in the past 12 m [facility], were you homeless or living in a [...] Description 05/26/2025 2:40 PM EDT Office Visit [facility] 703 [facility] 250 [place] [address] Gustavo Garcia MD 703 [facility] 2, [address] [place] [address] 05/27/2025 11:30 AM EDT Appointment [facility] 630 [place] [address] Arron Veloz MD 125 [facility] Medical Office [facility], [address] [place] [address] 05/28/2025 8:30 AM EDT Hospital Encounter [facility] 630 [place] [address] Maxwell Stafford MD [address] [place] [address] Persistent atrial fibrillation (Multi) 05/28/2025 8:30 AM EDT - 05/28/2025 12:30 PM EDT Surgery [facility] 630 [place] [address] Maxwell Stafford MD [address] [place] [address] Ablation A-Fib [[id number] (CPT )] 05/29/2025 2:15 PM EDT Office Visit [facility] Medical Office Building [address] [place] [address] Maxwell Stafford MD [address] [place] [address] documented as of this encounter Visit Diagnoses Not on filedocumented in this encounter Additional Health Concerns Assessment Noted Time A fall risk assessment has been complete d for the patient 04/24/2024 3:34 PM EDT documented as of this encounter Care Teams Business Area Director Relationship Specialty Start Date End Date Chester Mehta DO [address] [place] [address] PCP - General Internal Medicine 08/09/23 Gustavo Garcia MD [address] [place] [address] 2, [facility] 250 [place] [address] Consulting Physician Cardiology 09/10/23 Maxwell Stafford MD [address] [place] [address] 130 [place] [address] Consulting Physician Cardiology 02/13/24 documented as of this encounter
--- OUTSIDE RECORDS SUMMARY | 2025-05-03 06:54 | XMS_ITS | Encounter Summary ---
Author Organization [facility] Address [address] [place] [address] Phone Care Team Providers Care Senior Computer Specialist Name Role Phone TysonChester Primary Care Provider [phone] Gustavo Garcia MD Unavailable [phone] Maxwell Stafford MD Unavailable [phone] Encounter Details Date Type Department Care Team (Latest Contact Info) Description 05/01/2025 Travel Social History Tobacco Use Types Packs/Day Years [...] any time in the past 12 m [facility], were you homeless or living in [...] of Assessment Author No 03/27/2024 1:02 PM BELAT Avery Ang RN * Do you have [...] Description 05/26/2025 2:40 PM EDT Office Visit [facility] [address] [address] Gustavo Garcia MD 703 [facility] 2, [address] [place] [address] 05/27/2025 11:30 AM EDT Appointment [facility] 630 [facility] [place] [address] Arron Veloz MD 125 [facility] Medical Office Bl, [address] [place] [address] 05/28/2025 8:30 AM EDT Hospital Encounter [facility] 630 [facility] [place] [address] Maxwell Stafford MD [address] [place] [address] Persistent atrial fibrillation (Multi) 05/28/2025 8:30 AM EDT - 05/28/2025 12:30 PM EDT Surgery [facility] 630 [facility] [place] [address] Maxwell Stafford MD [address] [place] [address] Ablation A-Fib [48320 (CPT )] 05/29/2025 2:15 PM EDT Office Visit [facility] Medical Office Building [address] [place] [address] Maxwell Stafford MD [address] [place] [address] documented as of this encounter Goals Goal [...] documented as of this encounter Care Teams Senior Computer Specialist Relationship Specialty Start Date End Date Chester Mehta DO [address] [place] [address] PCP - General Internal Medicine 08/09/23 Gustavo Garcia MD 3 [facility] 2, [facility] 250 [place] [address] Consulting Physician Cardiology 09/10/23 Maxwell Stafford MD [address] [place] [address] 130 [place] [address] Consulting Physician Cardiology 02/13/24 documented as of this encounter
--- OUTSIDE RECORDS SUMMARY | 2025-05-03 06:54 | XMS_ITS | Encounter Summary ---
Author Organization [facility] Address [address] [place] [address] Care Team Providers Care Ios Architect Name Role Phone Chester Mehta Primary Care Provider [phone] Source Comments In the event this information is protected by the Federal Confidentiality of Alcohol and Drug AbusePatient Records regulations: The Federal rules restrict any use of the information to criminally investigate or prosecute any alcohol or drug abuse patient.[facility] Encounter Details Date Type Department Care Team (Late st Contact Info) Description 08/06/2015 [facility] 9[address] [place], [place] [id number] Yobany Li MD [address] [place] [id number] Social History Tobacco Use Types Packs/Day Years [...] on filedocumented in this encounter Care Teams Ios Architect Relationship Specialty Start Date End Date Chester Mehta DO PCP - General Internal Medicine 11/30/11 documented as of this encounter
--- OUTSIDE RECORDS SUMMARY | 2025-05-03 06:54 | XMS_ITS | Encounter Summary ---
Author Organization [facility] Address [address] [place] [address] Phone Care Team Providers Care Data Architect Name Role Phone Chester Mehta DO Primary Care Provider [phone] Chester Mehta DO Primary Care Provider Gustavo Garcia MD Unavailable [phone] Maxwell Stafford MD Unavailable Sasha Dobbins RN Unavailable Unavailable Encounter Details Date Type Department Care Team (Late st Contact Info) Description 12/15/2020 Orders Only [facility] [address] [place] [address] Abdifatah Madison MD [address] [facility] Medical Office dg, [address] [place] [address] Social History Tobacco Use Types [...] Description 05/26/2025 2:40 PM EDT Office Visit [address] [place] [address] Gustavo Garcia MD 703 [facility] 2, [address] [place] [address] 05/27/2025 11:30 AM EDT Appointment [facility] 630 [place] [address] Arron Veloz MD 125 [facility] Medical Office [facility], [facility] 305 [place] [address] 05/28/2025 8:30 AM EDT Hospital Encounter [address] [place] [address] Maxwell Stafford MD [address] [place] [address] Persistent atrial fibrillation (Multi) 05/28/2025 8:30 AM EDT - 05/28/2025 12:30 PM EDT Surgery [address] [place] [address] Maxwell Stafford MD [address] [place] [address] Ablation A-Fib [86168 (CPT )] 05/29/2025 2:15 PM EDT Office Visit [facility] Medical [facility] Building [address] [place] [address] Maxwell Stafford MD [address] [place] [address] Scheduled Orders Name Type Priority Associated Diagnoses Orde r Schedule OUTSIDE LAB SCAN Lab Ordered: 12/15/2020 documented as of this encounter Visit Diagnoses Not on filedocumented in this encounter Care Teams Data Architect Relationship Specialty Start Date End Date Chester Mehta DO PCP - General 08/20/99 08/08/23 [place] [address] PCP - General Internal Medicine 08/09/23 Gustavo Garcia MD [address] [place] [address] 250 [place] [address] Consulting Physician Cardiology 09/10/23 Maxwell Stafford MD [address] [place] [address] 130 [place] [address] Consulting Physician Cardiology 02/13/24 Sasha Dobbins, physical aerodynamicistDischarge Coordinator 03/28/24 04/28/24 documented as of this encounter
--- OUTSIDE RECORDS SUMMARY | 2025-05-03 06:54 | XMS_ITS | Encounter Summary ---
Author Organization [facility] Address [address] [place] [address] Phone Care Team Providers Care Insights Analyst Name Role Phone Chester Mehta DO Primary Care Provider [phone] Chester Mehta DO Primary Care Provider [phone] Gustavo Garcia MD Unavailable [phone] Maxwell Stafford MD Unavailable [phone] Sasha Dobbins RN Unavailable Unavailable Encounter Details Date Type Department Care Team (Late st Contact Info) Description 05/16/2021 Orders Only [facility] [address] [place] [address] Conversion, Onbase Social History Tobacco Use Types [...] Description 05/26/2025 2:40 PM EDT Office Visit [facility] 703 [facility] [address] [place] [address] Gustavo Garcia MD 703 [facility] 2, [address] [place] [address] 05/27/2025 11:30 AM EDT Appointment [place] [address] [place] [address] Arron Veloz MD 125 [address] [facility] Medical Office [facility], [address] [place] [address] 05/28/2025 8:30 AM EDT Hospital Encounter [facility] 630 [place] [facility] [place] [address] Maxwell Stafford MD [address] [place] [address] 130 [place] [address] Persistent atrial fibrillation (Multi) 05/28/2025 8:30 AM EDT - 05/28/2025 12:30 PM EDT Surgery [facility] 630 [place] [address] Maxwell Stafford MD [address] [place] [address] Ablation A-Fib [79504 (CPT )] 05/29/2025 2:15 PM EDT Office Visit [facility] Medical Office Building [address] [address] Maxwell Stafford MD [address] [place] [address] Scheduled Orders Name Type Priority Associated Diagnoses Orde r Schedule OUTSIDE LAB SCAN Lab Ordered: 05/16/2021 documented as of this encounter Visit Diagnoses Not on filedocumented in this encounter Care Teams Insights Analyst Relationship Specialty Start Date End Date Chester Mehta DO PCP - General 08/20/99 08/08/23 Chester Mehta DO [address] [place] [address] PCP - General Internal Medicine 08/09/23 Gustavo Garcia MD [address] [place] [address] 2, [address] [place] [address] Consulting Physician Cardiology 09/10/23 Maxwell Stafford MD [address] [place] [address] 130 [place] [address] Consulting Physician Cardiology 02/13/24 Sasha Dobbins, colorer machinePlastic Parts Fabricator Trimmer 03/28/24 04/28/24 documented as of this encounter
--- OUTSIDE RECORDS SUMMARY | 2025-05-03 06:54 | XMS_ITS | Encounter Summary ---
Author Organization [facility] Address [address] [place] [address] Phone Care Team Providers Care Travel Pta Name Role Phone TysonChester Jovani MORENO Primary Care Provider [phone] Gustavo Garcia MD Unavailable [phone] Maxwell Stafford MD Unavailable [phone] Encounter Details Date Type Department Care Team (Late st Contact Info) Description 06/30/[address] [facility] [address] [place] [phone] Scanning, Generic Provider Social History Tobacco Use [...] any time in the past [address] [facility], were you homeless or living in a alf (including now)? No 03/21/2024 Comments Unknown Sex [...] Description 05/26/2025 2:40 PM EDT Office Visit [facility] 703 [facility] 250 [place] [address] Gustavo Garcia MD 703 [facility] 2, [address] [place] [address] 05/27/2025 11:[address] [facility] [address] [facility] [place] [address] Arron Veloz MD 125 [facility] Medical Office Bl, [address] [place] [address] 05/28/2025 8:30 AM EDT Hospital Encounter [facility] [address] [facility] [place] [address] Maxwell Stafford MD [address] [place] [address] Persistent atrial fibrillation (Multi) 05/28/2025 8:30 AM EDT - 05/28/2025 12:[address] [facility] 630 [place] [address] Maxwell Stafford MD [address] [place] [address] Ablation A-Fib [66592 (CPT )] 05/29/2025 2:15 PM EDT Office Visit [facility] Medical Office Building [address] [place] [address] Maxwell Stafford MD [address] [place] [address] documented as of this encounter Procedures Procedure Name Priority Date/Time Associated Diagnosis Comments OUTSIDE IMAGING SCAN 06/30/2024 documented in this encounter Results * OUTSIDE IMAGING SCAN (06/30/2024) Anatomical Region Laterality Modality Other Narrative 06/30/2024 Ordered by an unspecified provider. us Generic Provider Scanning OUTSIDE SCAN Final Result documented in this encounter Visit Diagnoses Not on filedocumented in this encounter Additional Health Concerns Assessment Noted Time A fall risk assessment has been complete d for the patient 04/24/2024 3:34 PM EDT documented as of this encounter Care Teams Travel Pta Relationship Specialty Start Date End Date Chester Mehta DO [address] [place] [address] PCP - General Internal Medicine 08/09/23 Gustavo Garcia MD 703 [facility] 250 [place] [address] Consulting Physician Cardiology 09/10/23 Maxwell Stafford MD [address] [place] [address] 130 [place] [address] Consulting Physician Cardiology 02/13/24 documented as of this encounter
--- OUTSIDE RECORDS SUMMARY | 2025-05-03 06:54 | XMS_ITS | Encounter Summary ---
Author Organization [facility] Address [address] [place] [address] Phone Care Team Providers Care Collar Stay Fuser Tender Name Role Phone Chester Mehta Primary Care Provider [phone] Gustavo Garcia MD Unavailable [phone] Maxwell Stafford MD Unavailable [phone] Encounter Details Date Type Department Care Team (Late st Contact Info) Description 04/24/2025 Orders Only [facility] [address] [place] [address] Ivelisse Nevarez RN Stage 3a chronic kidney disease (Multi) (Primary Dx) Social History Tobacco Use Types [...] time in the past 12 m [facility], were you homeless or living in a correction (including now)? No 03/21/2024 Comments Unknown Sex [...] Avery Figueroa RN documented in this encounter Progress Notes * Kalyn Sutherland PA-C - 04/24/2025 1:14 PM EDT signed documented in this encounter Plan of Treatment Upcoming Encounters Date Type Department Care Team (Latest Contact Info) Description 05/26/2025 2:40 PM EDT Office Visit [facility] 703 [facility] 250 [place] [address] Gustavo Garcia MD 703 [facility] 2, [address] [place] [address] 05/27/2025 11:30 AM EDT Appointment [address] [place] [address] Arron Veloz MD 125 [facility] Medical [facility], [address] [place] [address] 05/28/2025 8:30 AM EDT Hospital Encounter [facility] 630 [place] [address] Maxwell Stafford MD [address] [place] [address] Persistent atrial fibrillation (Multi) 05/28/2025 8:30 AM EDT - 05/28/2025 12:30 PM EDT Surgery [facility] 630 [place] [address] Maxwell Stafford MD [address] [place] [address] Ablation A-Fib [01535 (CPT )] 05/29/2025 2:15 PM EDT Office Visit [facility] Medical [facility] Building [address] [address] Maxwell Stafford MD [address] [place] [address] Scheduled Orders Name Type Priority Associated Diagnoses Orde r Schedule Creatinine Lab STAT Stage 3a chronic kidney disease (Multi) Expected: 04/25/2025 (Approximate), Expires: 04/24/2026 documented as of this encounter Goals Goal Patient Goal Type Associated Problems Recent Progress Patient-Stated? Author Autogenera anne marie Goal Care Plan Autogenerated Problem No Batch Discontinue, Automatic documented as of this encounter Visit Diagnoses Diagnosis Persistent atrial fibrillation (Multi)- Primary Atrial fibrillation Stage 3a chronic kidney disease (Multi)- Primary Persistent atrial fibrillation (Multi) Atrial fibrillation documented in this encounter Additional Health Concerns Active Problems Noted Date Diagnosed Date Autogenerated Problem 04/08/2025 Assessment Noted Time A fall risk assessment has been complete d for the patient 09/05/2024 11:18 AM EST documented as of this encounter Care Teams Collar Stay Fuser Tender Relationship Specialty Start Date End Date Chester Mehta DO [address] [place] [address] PCP - General Internal Medicine 08/09/23 Gustavo Garcia MD 703 [facility] 2, [facility] 250 [place] [address] Consulting Physician Cardiology 09/10/23 Maxwell Stafford MD [address] [place] [address] 130 [place] [address] Consulting Physician Cardiology 02/13/24 documented as of this encounter
--- OUTSIDE RECORDS SUMMARY | 2025-05-03 06:54 | XMS_ITS | Encounter Summary ---
Author Organization [facility] Address [address] [place] [address] Phone Care Team Providers Care Officer Lieutenant Name Role Phone TysonChester Jovani MORENO Primary Care Provider [phone] Gustavo Garcia MD Unavailable [phone] Maxwell Stafford MD Unavailable [phone] Encounter Details Date Type Department Care Team (Late st Contact Info) Description 07/03/2024 Scanned Document [facility] [address] [place] [address] Scanning, Generic Provider Social History Tobacco Use [...] time in the past 12 m [facility], were you homeless or living [...] Description 05/26/2025 2:40 PM EDT Office Visit [facility] 703 [facility] 250 [place] [address] Gustavo Garcia MD 703 [facility] 2, [address] [place] [address] 05/27/2025 11:30 AM EDT Appointment [facility] 630 [place] [address] Arron Veloz MD 125 [facility] Medical Office [facility], [address] [place] [address] 05/28/2025 8:30 AM EDT Hospital Encounter [facility] 630 [place] [address] Maxwell Stafford MD [address] [place] [address] Persistent atrial fibrillation (Multi) 05/28/2025 8:30 AM EDT - 05/28/2025 12:30 PM EDT Surgery [facility] 630 [place] [address] Maxwell Stafford MD [address] [place] [address] Ablation A-Fib [24620 (CPT )] 05/29/2025 2:15 PM EDT Office Visit [facility] Medical Office Building [address] [address] Maxwell Stafford MD [address] [place] [address] documented as of this encounter Visit Diagnoses Not on filedocumented in this encounter Additional Health Concerns Assessment Noted Time A fall risk assessment has been complete d for the patient 04/24/2024 3:34 PM EDT documented as of this encounter Care Teams Officer Lieutenant Relationship Specialty Start Date End Date Chester Mehta DO [address] [address] PCP - General Internal Medicine 08/09/23 Gustavo Garcia MD [address] [place] [address] 2, [facility] 250 [place] [address] Consulting Physician Cardiology 09/10/23 Maxwell Stafford MD [address] [place] [address] 130 [place] [address] Consulting Physician Cardiology 02/13/24 documented as of this encounter
--- OUTSIDE RECORDS SUMMARY | 2025-05-03 06:54 | XMS_ITS | Encounter Summary ---
Author Organization [facility] Address [address] [place] [address] Phone Care Team Providers Care House Superintendent Name Role Phone TysonChester Jovani MORENO Primary Care Provider Gustavo Garcia MD Unavailable [phone] Maxwell Stafford MD Unavailable [phone] Encounter Details Date Type Department Care Team (Late st Contact Info) Description 07/21/2024 Scanned Document [facility] [address] [place] [phone] Scanning, Generic Provider Social History Tobacco Use [...] any time in the past 12 m [facility], were you homeless or living in a mcfp (including now)? No 03/21/2024 Comments Unknown Sex [...] Description 05/26/2025 2:40 PM EDT Office Visit [facility] 703 [facility] 250 [place] [address] Gustavo Garcia MD 703 [facility] 2, [address] [place] [address] 05/27/2025 11:30 AM EDT Appointment [facility] 630 [facility] [place] [address] Arron Veloz MD 125 [facility] Medical Office [facility], [address] [place] [address] 05/28/2025 8:30 AM EDT Hospital Encounter [facility] 630 [facility] [place] [address] Maxwell Stafford MD [address] [place] [address] Persistent atrial fibrillation (Multi) 05/28/2025 8:30 AM EDT - 05/28/2025 12:30 PM EDT Surgery [facility] 630 [place] [address] Maxwell Stafford MD [address] [place] [address] Ablation A-Fib [39090 (CPT )] 05/29/2025 2:15 PM EDT Office Visit [facility] Medical Office Building [address] [place] [address] Maxwell Stafford MD [address] [place] [address] documented as of this encounter Procedures Procedure Name Priority Date/Time Associated Diagnosis Comments OUTSIDE IMAGING SCAN 07/21/2024 documented in this encounter Results * OUTSIDE IMAGING SCAN (07/21/2024) Anatomical Region Laterality Modality Other Narrative 07/21/2024 Ordered by an unspecified provider. us Generic Provider Scanning OUTSIDE SCAN Final Result documented in this encounter Visit Diagnoses Not on filedocumented in this encounter Additional Health Concerns Assessment Noted Time A fall risk assessment has been complete d for the patient 04/24/2024 3:34 PM EDT documented as of this encounter Care Teams House Superintendent Relationship Specialty Start Date End Date Chester Mehta DO [address] [place] [address] PCP - General Internal Medicine 08/09/23 Gustavo Garcia MD [address] [place] [address] 2, [facility] 250 [place] [address] Consulting Physician Cardiology 09/10/23 Maxwell Stafford MD [address] [place] [address] 130 [place] [address] Consulting Physician Cardiology 02/13/24 documented as of this encounter
--- OUTSIDE RECORDS SUMMARY | 2025-05-03 06:54 | XMS_ITS | Encounter Summary ---
Author Organization [facility] Address [address] [place] [address] Phone Care Team Providers Care Boiler Service Technician Name Role Phone TysonChester Jovani MORENO Primary Care Provider [phone] Gustavo Garcia MD Unavailable [phone] Maxwell Stafford MD Unavailable [phone] Encounter Details Date Type Department Care Team (Late st Contact Info) Description 01/22/2025 Scanned Document [facility] [address] [place] [address] Scanning, Generic Provider Social History Tobacco Use [...] were you homeless or living in a fpc (including now)? No 03/21/2024 Comments Unknown Sex [...] Description 05/26/2025 2:40 PM EDT Office Visit [facility] 703 [facility] [address] [place] [address] Gustavo Garcia MD 703 [facility] 2, [address] [place] [address] 05/27/2025 11:30 AM EDT Appointment [facility] 630 [place] [address] Arron Veloz MD 125 [facility] Medical Office Bldg, [address] [place] [address] 05/28/2025 8:30 AM EDT Hospital Encounter [facility] 630 [place] [address] Maxwell Stafford MD [address] [place] [address] Persistent atrial fibrillation (Multi) 05/28/2025 8:30 AM EDT - 05/28/2025 12:30 PM EDT Surgery [facility] 630 [place] [address] Maxwell Stafford MD [address] [place] [address] Ablation A-Fib [53163 (CPT )] 05/29/2025 2:15 PM EDT Office Visit [facility] Medical Office Building [address] [address] Maxwell Stafford MD [address] [place] [address] documented as of this encounter Procedures Procedure Name Priority Date/Time Associated Diagnosis Comments OUTSIDE IMAGING SCAN 01/22/2025 documented in this encounter Results * OUTSIDE IMAGING SCAN (01/22/2025) Anatomical Region Laterality Modality Other Narrative 01/22/2025 Ordered by an unspecified provider. us Generic Provider Scanning OUTSIDE SCAN Final Result documented in this encounter Visit Diagnoses Not on filedocumented in this encounter Additional Health Concerns Assessment Noted Time A fall risk assessment has been complete d for the patient 09/05/2024 11:18 AM EST documented as of this encounter Care Teams Boiler Service Technician Relationship Specialty Start Date End Date Chester Mehta DO [address] [place] [address] PCP - General Internal Medicine 08/09/23 Gustavo Garcia MD [address] [place] [address] 250 [place] [address] Consulting Physician Cardiology 09/10/23 Maxwell Stafford MD [address] [place] [address] 130 [place] [address] Consulting Physician Cardiology 02/13/24 documented as of this encounter
--- OUTSIDE RECORDS SUMMARY | 2025-05-03 06:54 | XMS_ITS | Encounter Summary ---
Author Organization [facility] Address [address] [place] [address] Phone Care Team Providers Care Freight Conductor Name Role Phone TysonChester Jovani MORENO Primary Care Provider [phone] Gustavo Garcia MD Unavailable [phone] Maxwell Stafford MD Unavailable [phone] Encounter Details Date Type Department Care Team (Late st Contact Info) Description 07/01/2024 Scanned Document [facility] [address] [place] [id number] Scanning, Generic Provider Social History Tobacco Use [...] any time in the past 12 m [facility], were you homeless or living in a long term (including now)? No 03/21/2024 Comments Unknown Sex [...] Description 05/26/2025 2:40 PM EDT Office Visit [facility] 703 [facility] 250 [place] [address] Gustavo Garcia MD 703 [facility] 2, [address] [place] [address] 05/27/2025 11:30 AM EDT Appointment [facility] 630 [place] [address] Arron Veloz MD 125 [facility] Medical Office [facility], [address] [place] [address] 05/28/2025 8:30 AM EDT Hospital Encounter [facility] 630 [place] [address] Maxwell Stafford MD [address] [place] [address] Persistent atrial fibrillation (Multi) 05/28/2025 8:30 AM EDT - 05/28/2025 12:30 PM EDT Surgery [facility] 630 [place] [address] Maxwell Stafford MD [address] [place] [address] Ablation A-Fib [93451 (CPT )] 05/29/2025 2:15 PM EDT Office Visit [facility] Medical Office Building [address] [address] Maxwell Stafford MD [address] [place] [address] documented as of this encounter Visit Diagnoses Not on filedocumented in this encounter Additional Health Concerns Assessment Noted Time A fall risk assessment has been complete d for the patient 04/24/2024 3:34 PM EDT documented as of this encounter Care Teams Freight Conductor Relationship Specialty Start Date End Date Chester Mehta DO [address] [place] [address] PCP - General Internal Medicine 08/09/23 Gustavo Garcia MD [address] [place] [address] 2, [facility] 250 [place] [address] Consulting Physician Cardiology 09/10/23 Maxwell Stafford MD [address] [place] [address] 130 [place] [address] Consulting Physician Cardiology 02/13/24 documented as of this encounter
--- OUTSIDE RECORDS SUMMARY | 2025-05-03 06:54 | XMS_ITS | Clinical Summary ---
Author Organization [facility] Address [address] [place] [address] Care Team Providers Care Combination Machine Tool Operator Name Role Phone TysonChester Primary Care Provider [phone] Allergies Active Allergy Reactions Criticality Noted Date [...] mg before bedtime. 4 Active HYDROcodone-acet aminophen (Goree) 10-325 MG tablet 1 tablet 4 Active [...] day supply 60 mL 11 4 Active clindamycin (Cleocin) 300 MG capsuleIndicatio ns:Cellulitis of left foot Take 1 capsule (300 mg) by mouth in the morning and 1 capsule (300 mg) in the evening and 1 capsule (300 mg) before bedtime. Do all this for 10 days. 30 capsule 5 05/10/20 25 Active Active Problems Problem Noted Date Diagnosed [...] deficiency anemia: Followed by Dr. Cash ([facility] hematology). 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 Anemia 09/26/2012 Iron deficiency 09/26/2012 Encounters Date Type Department Care Team Description 04/30/2025 4:00 PM EDT Procedure Visit [facility] [address] [address] [place] [address] Joseph Dobbins, DPM Cellulitis of left foot (Primary Dx); Pain due to onychomycosis of toenails of both feet; Acquired deformity of left toe; Acquired deformity of right toe; Foot ulcer, left, with fat layer exposed (HCC) 04/30/2025 Bamboo flowsheet [facility] 112 [facility] 120 [place] [address] Joseph Dobbins DPM 04/30/2025 Travel 02/12/2025 10:30 AM EDT Office Visit [facility] 112 [facility] [address] [place] [address] Joseph Dobbins DPM Acquired deformity of left toe (Primary Dx); Acquired deformity of right toe; Pain due to onychomycosis of toenails of both feet 02/12/2025 Bamboo flowsheet [facility] 112 [facility] 120 [place] [address] Joseph Dobbins DPM 02/12/2025 Travel from Last 3 Months Immunizations Immunization Administration Dates Next Due Influenza, [...] Mass Index 24.44 04/30/2025 4:13 PM EDT Plan of Treatment Upcoming Encounters Date Type Department Care Team (Late st Contact Info) Description 05/07/2025 3:00 PM EDT Office Visit [facility] [address] [facility] 120 [place] [address] Joseph Dobbins, DPM [address] [address] 07/23/2025 4:20 PM EST Procedure Visit [facility] [address] [facility] 120 [place] [address] Joseph Dobbins DPM [address] [address] Health Maintenance Due Date Last Done Comments Pneumococcal Vaccine: 65+ Ye ars (2 of 2 - PCV) 11/08/2019 11/07/2018, 03/20/2015 Influenza Vaccine (#1) 2025 2, 05/20/2020, 05/05/2020, Additional history exists Insurance [employer] Care Teams Combination Machine Tool Operator Relationship Specialty Start Date End Date Chester Mehta DO [address] [place] [address] PCP - General Internal Medicine 02/14/23
--- OUTSIDE RECORDS SUMMARY | 2025-05-03 06:54 | XMS_ITS | Encounter Summary ---
Author Organization [facility] Address [address] [place] [address] Phone Care Team Providers Care Automotive Engineering Teacher Name Role Phone Chester Mehta DO Primary Care Provider [phone] Chester Mehta DO Primary Care Provider [phone] Gustavo Garcia MD Unavailable [phone] Maxwell Stafford MD Unavailable [phone] Sasha Dobbins RN Unavailable Unavailable Encounter Details Date Type Department Care Team (Late st Contact Info) Description 12/16/2020 Orders Only [facility] [address] [place] [address] Conversion, Onbase Social History Tobacco Use Types [...] Description 05/26/2025 2:40 PM EDT Office Visit [facility] [address] [facility] [address] [place] [address] Gustavo Garcia MD 703 [facility] 2, [address] [place] [address] 05/27/2025 11:30 AM EDT Appointment [place] [address] [place] [address] Arron Veloz MD [address] [facility] Medical Office [facility], [address] [place] [address] 05/28/2025 8:30 AM EDT Hospital Encounter [facility] [address] [place] [address] Maxwell Stafford MD [address] [place] [address] [address] [place] [address] Persistent atrial fibrillation (Multi) 05/28/2025 8:30 AM EDT - 05/28/2025 12:30 PM EDT Surgery [facility] 630 [place] [address] Maxwell Stafford MD [address] [place] [address] Ablation A-Fib [[id number] (CPT )] 05/29/2025 2:15 PM EDT Office Visit [facility] Medical Office Building [address] [address] Maxwell Stafford MD [address] [place] [address] Scheduled Orders Name Type Priority Associated Diagnoses Orde r Schedule OUTSIDE LAB SCAN Lab Ordered: 12/16/2020 documented as of this encounter Visit Diagnoses Not on filedocumented in this encounter Care Teams Automotive Engineering Teacher Relationship Specialty Start Date End Date Chester Mehta DO PCP - General 08/20/99 08/08/23 Chester Mehta DO [address] [place] [address] PCP - General Internal Medicine 08/09/23 Gustavo Garcia MD [address] [place] [address] 2, [address] [place] [address] Consulting Physician Cardiology 09/10/23 Maxwell Stafford MD [address] [place] [address] [address] [place] [address] Consulting Physician Cardiology 02/13/24 Sasha Dobbins, auto body repair teacherMold Tooling Technician 03/28/24 04/28/24 documented as of this encounter
--- OUTSIDE RECORDS SUMMARY | 2025-05-03 06:54 | XMS_ITS | Encounter Summary ---
Author Organization [facility] Address [address] [place] [address] Phone Care Team Providers Care Charter Coordinator Name Role Phone Chester Mehta DO Primary Care Provider [phone] Chester Mehta DO Primary Care Provider [phone] Gustavo Garcia MD Unavailable [phone] Maxwell Stafford MD Unavailable [phone] Sasha Dobbins RN Unavailable Unavailable Encounter Details Date Type Department Care Team (Late st Contact Info) Description 07/28/2020 Orders Only [facility] [address] [place] [address] Conversion, Onbase Social History Tobacco Use Types [...] Description 05/26/2025 2:40 PM EDT Office Visit [facility] 703 [facility] [address] [place] [address] Gustavo Garcia MD 703 [facility] 2, [address] [place] [address] 05/27/2025 11:30 AM EDT Appointment [place] [address] [place] [address] Arron Veloz MD 125 E [facility] Medical Office Bl, [address] [place] [address] 05/28/2025 8:30 AM EDT Hospital Encounter [facility] 630 [facility] [place] [address] Maxwell Stafford MD [address] [place] [address] 130 [place] [address] Persistent atrial fibrillation (Multi) 05/28/2025 8:30 AM EDT - 05/28/2025 12:30 PM EDT Surgery [facility] 630 [facility] [place] [address] Maxwell Stafford MD [address] [place] [address] Ablation A-Fib [[id number] (CPT )] 05/29/2025 2:15 PM EDT Office Visit [facility] Medical Office Building [address] [place] [address] Maxwell Stafford MD [address] [place] [address] Scheduled Orders Name Type Priority Associated Diagnoses Orde r Schedule OUTSIDE LAB SCAN Lab Ordered: 07/28/2020 documented as of this encounter Visit Diagnoses Not on filedocumented in this encounter Care Teams Charter Coordinator Relationship Specialty Start Date End Date Chester Mehta DO PCP - General 08/20/99 08/08/23 Chester Mehta DO [address] [place] [address] PCP - General Internal Medicine 08/09/23 Gustavo Garcia MD [address] [place] [address] 2, [address] [place] [address] Consulting Physician Cardiology 09/10/23 Maxwell Stafford MD [address] [place] [address] 130 [place] [address] Consulting Physician Cardiology 02/13/24 Sasha Dobbins, outplacement consultantButton Pusher 03/28/24 04/28/24 documented as of this encounter
--- OUTSIDE RECORDS SUMMARY | 2025-05-03 06:54 | XMS_ITS | Encounter Summary ---
Author Organization [facility] Address [address] [place] [address] Phone Care Team Providers Care Property Worker Name Role Phone Chester Mehta DO Primary Care Provider [phone] Chester Mehta DO Primary Care Provider [phone] Gustavo Garcia MD Unavailable [phone] Maxwell Stafford MD Unavailable [phone] Sasha Dobbins RN Unavailable Unavailable Encounter Details Date Type Department Care Team (Late st Contact Info) Description 01/02/2023 Orders Only [facility] LE[facility]Y [address] [place] [address] Conversion, Onbase Social History Tobacco Use Types [...] Description 05/26/2025 2:40 PM EDT Office Visit [facility] 703 [facility] [address] [place] [address] Gustavo Garcia MD 703 [facility] 2, [address] [place] [address] 05/27/2025 11:30 AM EDT Appointment [place] [address] [place] [address] Arron Veloz MD 125 E [facility] Medical Office [facility], [address] [place] [address] 05/28/2025 8:30 AM EDT Hospital Encounter [facility] 630 [place] [facility] [place] [address] Maxwell Stafford MD [address] [place] [address] 130 [place] [address] Persistent atrial fibrillation (Multi) 05/28/2025 8:30 AM EDT - 05/28/2025 12:30 PM EDT Surgery [facility] 630 [place] [address] Maxwell Stafford MD [address] [place] [address] Ablation A-Fib [[id number] (CPT )] 05/29/2025 2:15 PM EDT Office Visit [facility] Medical Office Building [address] [address] Maxwell Stafford MD [address] [place] [address] Scheduled Orders Name Type Priority Associated Diagnoses Orde r Schedule OUTSIDE LAB SCAN Lab Ordered: 01/02/2023 documented as of this encounter Visit Diagnoses Not on filedocumented in this encounter Care Teams Property Worker Relationship Specialty Start Date End Date Chester Mehta DO PCP - General 08/20/99 08/08/23 Chester Mehta DO [address] [place] [address] PCP - General Internal Medicine 08/09/23 Gustavo Garcia MD [address] [place] [address] 2, [address] [place] [address] Consulting Physician Cardiology 09/10/23 Maxwell Stafford MD [address] [place] [address] 130 [place] [address] Consulting Physician Cardiology 02/13/24 Sasha Dobbins, coilerCriminal Justice Social Worker 03/28/24 04/28/24 documented as of this encounter
--- OUTSIDE RECORDS SUMMARY | 2025-05-03 06:54 | XMS_ITS | Encounter Summary ---
Author Organization [facility] Address [address] [place] [address] Phone Care Team Providers Care Kelly Machine Operator Name Role Phone Tyson Chester Hahn DO Primary Care Provider [phone] Gustavo Garcia MD Unavailable Maxwell Stafford MD Unavailable [phone] Sasha Dobbins RN Unavailable Unavailable Reason for Visit * Reason Comments Med Refill Encounter Details Date Type Department Care Team (Late st Contact Info) Description 04/20/[address] [facility] Medical Office Building [address] [place] [address] Maxwell Stafford MD [address] [place] [address] Longstanding persistent atrial fibrillation (Multi) Social History [...] were you homeless or living in a intermediate (including now)? No 03/21/2024 Comments Unknown Sex [...] Description 05/26/2025 2:40 PM EDT Office Visit [address] [place] [address] Gustavo Garcia MD 703 [facility] 2, [address] [place] [address] 05/27/2025 11:30 AM EDT Appointment [facility] 630 [place] [address] Arron Veloz MD 125 [facility] Medical Office [facility], [address] [place] [address] 05/28/2025 8:30 AM EDT Hospital Encounter [facility] [address] [place] [address] Maxwell Stafford MD 917 [facility] 130 [place] [address] Persistent atrial fibrillation (Multi) 05/28/2025 8:30 AM EDT - 05/28/2025 12:30 PM EDT Surgery [facility] 630 [place] [address] Maxwell Stafford MD [address] [address] Ablation A-Fib [[id number] (CPT )] 05/29/2025 2:15 PM EDT Office Visit [facility] Medical Office Building [address] [address] Maxwell Stafford MD [address] [address] documented as of this encounter Visit Diagnoses Diagnosis Longstanding persistent atrial fibrillation (Multi) Persistent atrial fibrillation (Multi)- Primary Atrial fibrillation Persistent atrial fibrillation (Multi) Atrial fibrillation documented in this encounter Additional Health Concerns Assessment Noted Time A fall risk assessment has been complete d for the patient 11/28/2023 3:37 PM EDT documented as of this encounter Care Teams Kelly Machine Operator Relationship Specialty Start Date End Date Chester Mehta DO [address] [place] [address] PCP - General Internal Medicine 08/09/23 Gustavo Garcia MD [address] [place] [address], [address] [address] Consulting Physician Cardiology 09/10/23 Maxwell Stafford MD [address] [place] [address] Consulting Physician Cardiology 02/13/24 Sasha Dobbins, body makerMobile Application Architect 03/28/24 04/28/24 documented as of this encounter
--- OUTSIDE RECORDS SUMMARY | 2025-05-03 06:54 | XMS_ITS | Encounter Summary ---
Author Organization [facility] Address [address] [place] [address] Phone Care Team Providers Care Recreation Therapy Aides Teacher Name Role Phone TysonChester Jovani MORENO Primary Care Provider [phone] Gustavo Garcia MD Unavailable [phone] Maxwell Stafford MD Unavailable [phone] Encounter Details Date Type Department Care Team (Late st Contact Info) Description 07/02/2024 Scanned Document [facility] [address] [place] [address] Scanning, Generic Provider Social History Tobacco Use [...] time in the past 12 m [facility], were you homeless or living [...] Description 05/26/2025 2:40 PM EDT Office Visit [facility] 703 [facility] 250 [place] [address] Gustavo Garcia MD 703 [facility] 2, [address] [place] [address] 05/27/2025 11:30 AM EDT Appointment [facility] 630 [facility] [place] [address] Arron Veloz MD 125 [facility] Medical Office [facility], [address] [place] [address] 05/28/2025 8:30 AM EDT Hospital Encounter [facility] 630 [facility] [place] [address] Maxwell Stafford MD [address] [place] [address] Persistent atrial fibrillation (Multi) 05/28/2025 8:30 AM EDT - 05/28/2025 12:30 PM EDT Surgery [facility] 630 [facility] [place] [address] Maxwell Stafford MD [address] [place] [address] Ablation A-Fib [[id number] (CPT )] 05/29/2025 2:15 PM EDT Office Visit [facility] Medical Office Building [address] [address] Maxwell Stafford MD [address] [place] [address] documented as of this encounter Visit Diagnoses Not on filedocumented in this encounter Additional Health Concerns Assessment Noted Time A fall risk assessment has been complete d for the patient 04/24/2024 3:34 PM EDT documented as of this encounter Care Teams Recreation Therapy Aides Teacher Relationship Specialty Start Date End Date Chester Mehta DO [address] [place] [address] PCP - General Internal Medicine 08/09/23 Gustavo Garcia MD [address] [place] [address] 2, [facility] 250 [place] [address] Consulting Physician Cardiology 09/10/23 Maxwell Stafford MD [address] [place] [address] 130 [place] [address] Consulting Physician Cardiology 02/13/24 documented as of this encounter
--- OUTSIDE RECORDS SUMMARY | 2025-05-03 06:54 | XMS_ITS | Clinical Summary ---
Author Organization [facility] Address [address] [place] [address] Care Team Providers Care Utility Tractor Operator Name Role Phone Chester Mehta Primary Care Provider [phone] Allergies Active Allergy Reactions Criticality Noted Date Comments Sulfa (Sulfonamide Antibiotics) Intolerance 02/2013 Medications FELODIPINE 5 mg 24 hr tablet Take 5 mg by mouth once daily. 08/01/2012 Active Avilla-3 Fatty Acids-Vitamin E (FISH OIL) 1,000 mg cap Take 1 capsule by mouth once daily. Active flnkn-[id number]-ep a-fish oil-D3 (VITAMIN-D + OMEGA-3) 350 mg- [...] C/o uncontrolled incision pain; improved with fentanyl PATTERN HANGER. Pulmonary congestion; gave lasix. BPH. 12. Later [...] FOLLOW-UP 08/18/2015 Overview (08/26/2015): and lives in [place], [place]. At this time, we anticipate that [...] iron deficiency anemia: Followed by Dr. Cash ([facility] hematology). Last iron infusion [...] adequate PO intake. -Abdominal incision with richy SIGNS AND DISPLAYS SALES REPRESENTATIVE, dry - please use abdominal binder! . [...] 08/26/2015, 0 08/25/2015, 08/24/2015, Additional history exists Advance Directive Discussion 08/20/2024 Influenza Vaccine (#1) 2025 Procedures Procedure Name Priority Date/Time Associated Diagnosis Comments BASIC METABOLIC PANEL Routine 08/26/2015 5:00 AM EST from Last 3 Months or Most Recently Relevant to Health Maintenance Results * (ABNORMAL) BASIC METABOLIC PNL (08/26/2015 5:00 AM EST) Glucose 115(H) 65 - 100 mg/dL 08/26/2015 5:44 AM EST [facility] BUN 13 8 - 25 mg/dL 08/26/2015 5:44 AM EST [facility] Creatinine 0.87 0.70 - 1.40 mg/dL 08/26/2015 5:44 AM EST [facility] Sodium 140 132 - 148 mmol/L 08/26/2015 5:44 AM EST [facility] Potassium 4.1 3.5 - 5.0 mmol/L 08/26/2015 5:44 AM EST [facility] Chloride 104 98 - 110 mmol/L 08/26/2015 5:44 AM [facility] CO2 25 23 - 32 mmol/L 08/26/2015 5:44 AM [facility] Anion Gap 11 0 - 15 mmol/L 08/26/2015 5:44 AM [facility] Calcium 8.2(L) 8.5 - 10.5 mg/dL 08/26/2015 5:44 AM [facility] eGFR- >60 08/26/2015 5:44 AM [facility] eGFR-All Other Races >60 . 08/26/2015 5:44 AM [facility] Comment: eGFR (Estimated GFR) Units of [...] EST 08/26/2015 5:04 AM EST us Yobany iL MD LABORATORY Final Result [facility] [address] [place] [address] from Last 3 Months or Most Recently Relevant to Health Maintenance Insurance [employer] PPO Care Teams Utility Tractor Operator Relationship Specialty Start Date End Date Chester Mehta DO PCP - General Internal Medicine 11/30/11
--- OUTSIDE RECORDS SUMMARY | 2025-05-03 06:54 | XMS_ITS | Encounter Summary ---
Author Organization [facility] Address [address] [place] [address] Phone Care Team Providers Care Septic Tank Installer Name Role Phone TysonChester Jovani MORENO Primary Care Provider [phone] Gustavo Gracia MD Unavailable [phone] Maxwell Stafford MD Unavailable [phone] Encounter Details Date Type Department Care Team (Late st Contact Info) Description 01/23/2025 Scanned Document [facility] [address] [place] [id number] Scanning, Generic Provider Social History Tobacco Use [...] any time in the past 12 m [facility], were you homeless or living in [...] Assessment Author No 03/27/2024 1:02 PM EDT Vera Ang RN * Do you have serious [...] 03/27/2024 1:02 PM BELAT Avery Ang RN documented as of this [...] Description 05/26/2025 2:40 PM EDT Office Visit [facility] 703 [facility] 250 [place] [address] Gustavo Garcia MD 703 [employer] 2, [address] [place] [address] 05/27/2025 11:30 AM EDT Appointment [facility] [address] [place] [address] Arron Veloz MD [facility] Medical Office Bldg, [address] [place] [address] 05/28/2025 8:30 AM EDT Hospital Encounter [facility] [address] [place] [address] Maxwell Stafford MD [address] [place] [address] Persistent atrial fibrillation (Multi) 05/28/2025 8:30 AM EDT - 05/28/2025 12:30 PM EDT Surgery [facility] [address] [place] [address] Maxwell Stafford MD [address] [place] [address] Ablation A-Fib [42836 (CPT )] 05/29/2025 2:15 PM EDT Office Visit [facility] Medical Office [address] [address] Maxwell Stafford MD [address] [place] [address] documented as of this encounter Visit Diagnoses Not on filedocumented in this encounter Additional Health Concerns Assessment Noted Time A fall risk assessment has been complete d for the patient 09/05/2024 11:18 AM EST documented as of this encounter Care Teams Septic Tank Installer Relationship Specialty Start Date End Date Chester Mehta DO [address] [place] [address] PCP - General Internal Medicine 08/09/23 Gustavo Garcia MD [address] [place] [address] 2, [facility] 250 [place] [address] Consulting Physician Cardiology 09/10/23 Maxwell Stafford MD [address] [place] [address] 130 [place] [address] Consulting Physician Cardiology 02/13/24 documented as of this encounter
--- OUTSIDE RECORDS SUMMARY | 2025-05-03 06:54 | XMS_ITS | Encounter Summary ---
Author Organization [facility] Address [address] [place] [address] Phone Care Team Providers Care Ice Guard Tester Name Role Phone Chester Mehta DO Primary Care Provider Chester Mehta DO Primary Care Provider [phone] Gustavo Garcia MD Unavailable [phone] Maxwell Stafford MD Unavailable [phone] Sasha Dobbins RN Unavailable Unavailable Encounter Details Date Type Department Care Team (Late st Contact Info) Description 03/09/[address] [facility] [address] [place] [address] Conversion, Onbase Social History Tobacco Use Types [...] Description 05/26/2025 2:40 PM EDT Office Visit [facility] 703 [facility] [address] [place] [address] Gustavo Gacria MD 703 [facility] 2, [address] [place] [address] 05/27/2025 11:30 AM EDT Appointment [place] [address] [place] [address] Arron Veloz MD 125 [facility] Medical Office [facility], [address] [place] [address] 05/28/2025 8:30 AM EDT Hospital Encounter [facility] 630 [address] [facility] [place] [address] Maxwell Stafford MD [address] [place] [address] 130 [place] [address] Persistent atrial fibrillation (Multi) 05/28/2025 8:30 AM EDT - 05/28/2025 12:30 PM EDT Surgery [facility] 630 [place] [address] Maxwell Stafford MD [address] [place] [address] Ablation A-Fib [53233 (CPT )] 05/29/2025 2:15 PM EDT Office Visit [facility] Medical Office Building [address] [address] Maxwell Stafford MD [address] [place] [address] Scheduled Orders Name Type Priority Associated Diagnoses Orde r Schedule OUTSIDE LAB SCAN Lab Ordered: 03/09/2022 documented as of this encounter Visit Diagnoses Not on filedocumented in this encounter Care Teams Ice Guard Tester Relationship Specialty Start Date End Date Chester Mehta DO PCP - General 08/20/99 08/08/23 Chester Mehta DO [address] [place] [address] PCP - General Internal Medicine 08/09/23 Gustavo Garcia MD [address] [place] [address] 2, [address] [place] [address] Consulting Physician Cardiology 09/10/23 Maxwell Stafford MD [address] [place] [address] 130 [place] [address] Consulting Physician Cardiology 02/13/24 Sasha Dobbins, book or script editorBacker Up 03/28/24 04/28/24 documented as of this encounter
--- OUTSIDE RECORDS SUMMARY | 2025-05-03 06:54 | XMS_ITS | Encounter Summary ---
Author Organization [facility] Address [address] [place] [address] Phone Care Team Providers Care Fusion Juncture Grinder Name Role Phone TysonChester Primary Care Provider [phone] Gustavo Garcia MD Unavailable [phone] Maxwell Stafford MD Unavailable [phone] Encounter Details Date Type Department Care Team (Latest Contact Info) Description 04/28/2025 Travel Social History Tobacco Use Types Packs/Day [...] in the past 12 m [facility], were you homeless or [...] PM EDT Office Visit [facility] [address] [address] Gustavo Garcia MD 703 [facility] 2, [address] [place] [address] 05/27/2025 11:30 AM EDT Appointment [facility] 630 [facility] [place] [address] Arron Veloz MD 125 [facility] Medical Office Bl, [address] [place] [address] 05/28/2025 8:30 AM EDT Hospital Encounter [facility] 630 [facility] [place] [address] Maxwell Stafford MD [address] [place] [address] Persistent atrial fibrillation (Multi) 05/28/2025 8:30 AM EDT - 05/28/2025 12:30 PM EDT Surgery [facility] 630 [facility] [place] [address] Maxwell Stafford MD [address] [place] [address] Ablation A-Fib [[id number] (CPT )] 05/29/2025 2:15 PM EDT Office Visit [facility] Medical Office Building [address] [place] [address] Maxwell Stafford MD [address] [place] [address] documented as of this encounter Goals Goal [...] documented as of this encounter Care Teams Fusion Juncture Grinder Relationship Specialty Start Date End Date Chester Mehta DO [address] [place] [address] PCP - General Internal Medicine 08/09/23 Gustavo Garcia MD 3 [facility] 2, [facility] 250 [place] [address] Consulting Physician Cardiology 09/10/23 Maxwell Stafford MD [address] [place] [address] 130 [place] [address] Consulting Physician Cardiology 02/13/24 documented as of this encounter
--- OUTSIDE RECORDS SUMMARY | 2025-05-03 06:55 | XMS_ITS | Encounter Summary ---
Author Organization [facility] Address [address] [place] [address] Phone Care Team Providers Care Philanthropy Officer Name Role Phone TysonChester Primary Care Provider [phone] Gustavo Garcia MD Unavailable [phone] Maxwell Stafford MD Unavailable [phone] Sasha Dobbins RN Unavailable Unavailable Encounter Details Date Type Department Care Team (Late st Contact Info) Description 01/19/2024 Scanned Document [facility] [address] [place] [address] Scanning, Generic Provider Social History Tobacco Use [...] Description 05/26/2025 2:40 PM EDT Office Visit [place] [address] [address] Gustavo Garcia MD 703 [facility] 2, [address] [place] [address] 05/27/2025 11:30 AM EDT Appointment [facility] 630 [place] [address] Arron Veloz MD 125 [facility] Medical Office Bldg, [address] 305 [place] [address] 05/28/2025 8:30 AM EDT Hospital Encounter [facility] 630 [place] [address] Maxwell Stafford MD [address] [place] [address] Persistent atrial fibrillation (Multi) 05/28/2025 8:30 AM EDT - 05/28/2025 12:30 PM EDT Surgery [facility] 630 [place] [address] Maxwell Stafford MD [address] [place] [address] Ablation A-Fib [12668 (CPT )] 05/29/2025 2:15 PM EDT Office Visit [facility] Medical Office Building [address] [place] [address] Maxwell Stafford MD [address] [place] [address] documented as of this encounter Procedures Procedure Name Priority Date/Time Associated Diagnosis Comments ECHOCARDIOGRAM 01/19/2024 documented in this encounter Results * Echocardiogram (01/19/2024) Narrative 01/19/2024 Ordered by an unspecified provider. Generic Provider Scanning CV ECHO PROCEDURES Fin al Result documented in this encounter Visit Diagnoses Not on filedocumented in this encounter Additional Health Concerns Assessment Noted Time A fall risk assessment has been complete d for the patient 11/28/2023 3:37 PM EDT documented as of this encounter Care Teams Philanthropy Officer Relationship Specialty Start Date End Date Chester Mehta DO [address] [place] [place] [address] PCP - General Internal Medicine 08/09/23 Gustavo Garcia MD 703 [facility] 2, [facility] 250 [place] [address] Consulting Physician Cardiology 09/10/23 Maxwell Stafford MD 917 [facility] 130 [place] [address] Consulting Physician Cardiology 02/13/24 Sasha Dobbins, timber surveyorHuman Performance Consultant 03/28/24 04/28/24 documented as of this encounter
--- OUTSIDE RECORDS SUMMARY | 2025-05-03 06:55 | XMS_ITS | Encounter Summary ---
Author Organization [facility] Address [address] [place] [address] Phone Care Team Providers Care Laboratory Administrative Director Name Role Phone TysonChester Primary Care Provider [phone] Gustavo Garcia MD Unavailable [phone] Maxwell Stafford MD Unavailable [phone] Sasha Dobbins RN Unavailable Unavailable Encounter Details Date Type Department Care Team (Late st Contact Info) Description 02/07/2024 Scanned Document [facility] [address] [place] [address] Scanning, Generic Provider Social History Tobacco Use [...] Description 05/26/2025 2:40 PM EDT Office Visit [place] [id number] [address] Gustavo Garcia MD 703 [facility] 2, [address] [place] [address] 05/27/2025 11:30 AM EDT Appointment [facility] 630 [facility] [place] [address] Arron Veloz MD 125 [facility] Medical Office Bldg, [address] [place] [address] 05/28/2025 8:30 AM EDT Hospital Encounter [facility] 630 [facility] [place] [address] Maxwell Stafford MD [address] [place] [address] Persistent atrial fibrillation (Multi) 05/28/2025 8:30 AM EDT - 05/28/2025 12:30 PM EDT Surgery [facility] 630 [place] [address] Maxwell Stafford MD [address] [place] [address] Ablation A-Fib [[id number] (CPT )] 05/29/2025 2:15 PM EDT Office Visit [facility] Medical Office Building [address] [place] [address] Maxwell Stafford MD [address] [place] [address] documented as of this encounter Procedures Procedure Name Priority Date/Time Associated Diagnosis Comments ECHOCARDIOGRAM 02/07/2024 documented in this encounter Results * Echocardiogram (02/07/2024) Narrative 02/07/2024 Ordered by an unspecified provider. Generic Provider Scanning CV ECHO PROCEDURES Fin al Result documented in this encounter Visit Diagnoses Not on filedocumented in this encounter Additional Health Concerns Assessment Noted Time A fall risk assessment has been complete d for the patient 11/28/2023 3:37 PM EDT documented as of this encounter Care Teams Laboratory Administrative Director Relationship Specialty Start Date End Date Chester Mehta DO [address] [place] [address] PCP - General Internal Medicine 08/09/23 Gustavo Garcia MD 703 [facility] 2, [facility] 250 [place] [address] Consulting Physician Cardiology 09/10/23 Maxwell Stafford MD [address] [facility] 130 [place] [address] Consulting Physician Cardiology 02/13/24 Sasha Dobbins, channel sales directorStick Inserter 03/28/24 04/28/24 documented as of this encounter
--- OUTSIDE RECORDS SUMMARY | 2025-05-03 06:55 | XMS_ITS | Encounter Summary ---
Author Organization [facility] Address [address] [place] [address] Care Team Providers Care Fish Receiver Name Role Phone Chester Mehta DO Primary Care Provider [phone] Encounter Details Date Type Department Care Team (Latest Contact Info) Description 04/30/2025 Travel Social History Tobacco Use Types Packs/Day [...] Office Visit [facility] [address] [facility] 120 [place] [address] Joseph Dobbins DPM [address] [address] 07/23/2025 4:20 PM EST Procedure Visit [facility] [address] [facility] [address] [place] [address] Joseph Dobbins DPM [address] [address] documented as of this encounter Visit Diagnoses Not on filedocumented in this encounter Care Teams Fish Receiver Relationship Specialty Start Date End Date Chester Mehta DO [address] [place] [address] PCP - General Internal Medicine 02/14/23 documented as of this encounter
--- OUTSIDE RECORDS SUMMARY | 2025-05-03 06:55 | XMS_ITS | Encounter Summary ---
Author Organization [facility] Address [address] [place] [address] Phone Care Team Providers Care Resident Care Director Name Role Phone TysonChester Primary Care Provider [phone] Gustavo Garcia MD Unavailable [phone] Maxwell Stafford MD Unavailable [phone] Sasha Dobbins RN Unavailable Unavailable Encounter Details Date Type Department Care Team (Late st Contact Info) Description 02/08/2024 Scanned Document [facility] [address] [place] [address] Scanning, Generic Provider Social History Tobacco Use [...] Description 05/26/2025 2:40 PM EDT Office Visit [place] [address] [address] Gustavo Garcia MD 703 [facility] 2, [address] [place] [address] 05/27/2025 11:30 AM EDT Appointment [facility] 630 [place] [address] Arron Veloz MD 125 [facility] Medical Office [facility], [address] [place] [address] 05/28/2025 8:30 AM EDT Hospital Encounter [facility] 630 [place] [address] Maxwell Stafford MD [address] [place] [address] Persistent atrial fibrillation (Multi) 05/28/2025 8:30 AM EDT - 05/28/2025 12:30 PM EDT Surgery [facility] 630 [place] [address] Maxwell Stafford MD [address] [place] [address] Ablation A-Fib [[id number] (CPT )] 05/29/2025 2:15 PM EDT Office Visit [facility] Medical Office Building [address] [place] [address] Maxwell Stafford MD [address] [place] [address] documented as of this encounter Visit Diagnoses Not on filedocumented in this encounter Additional Health Concerns Assessment Noted Time A fall risk assessment has been complete d for the patient 11/28/2023 3:37 PM EDT documented as of this encounter Care Teams Resident Care Director Relationship Specialty Start Date End Date Chester [place] [address] PCP - General Internal Medicine 08/09/23 Gustavo Garcia MD [address] 250 [place] [address] Consulting Physician Cardiology 09/10/23 Maxwell Stafford MD [address] [place] [address] 130 [place] [address] Consulting Physician Cardiology 02/13/24 Sasha Dobbins, finished cloth examinerHeadlight Assembler 03/28/24 04/28/24 documented as of this encounter
--- OUTSIDE RECORDS SUMMARY | 2025-05-03 06:55 | XMS_ITS | Encounter Summary ---
Author Organization [facility] Address [address] [place] [address] Phone Care Team Providers Care Loader Magazine Grinder Name Role Phone TysonChester Primary Care Provider [phone] Gustavo Garcia MD Unavailable [phone] Maxwell Stafford MD Unavailable [phone] Sasha Dobbins RN Unavailable Unavailable Encounter Details Date Type Department Care Team (Late st Contact Info) Description 09/24/[address] [facility] [address] [place] [address] Scanning, Generic Provider Social History Tobacco Use [...] Description 05/26/2025 2:40 PM EDT Office Visit [address] [address] Gustavo Garcia MD 703 [facility] 2, [address] [place] [address] 05/27/2025 11:30 AM EDT Appointment [facility] 630 [place] [address] Arron Veloz MD 125 [facility] Medical Office Bldg, [address] [place] [address] 05/28/2025 8:30 AM EDT Hospital Encounter [facility] 630 [place] [address] Maxwell Stafford MD [address] [place] [address] Persistent atrial fibrillation (Multi) 05/28/2025 8:30 AM EDT - 05/28/2025 12:30 PM EDT Surgery [facility] 630 [place] [address] Maxwell Stafford MD [address] [place] [address] Ablation A-Fib [[id number] (CPT )] 05/29/2025 2:15 PM EDT Office Visit [facility] Medical Office Building [address] [place] [address] Maxwell Stafford MD [address] [place] [address] documented as of this encounter Procedures Procedure Name Priority Date/Time Associated Diagnosis Comments OUTSIDE IMAGING SCAN 09/24/2023 documented in this encounter Results * OUTSIDE IMAGING SCAN (09/24/2023) Anatomical Region Laterality Modality Other Narrative 09/24/2023 Ordered by an unspecified provider. Generic Provider Scanning OUTSIDE SCAN Final Result documented in this encounter Visit Diagnoses Not on filedocumented in this encounter Additional Health Concerns Assessment Noted Time A fall risk assessment has been complete d for the patient 09/19/2023 1:07 PM EST documented as of this encounter Care Teams Loader Magazine Grinder Relationship Specialty Start Date End Date Chester Mehta DO [address] [place] [address] PCP - General Internal Medicine 08/09/23 Gustavo Garcia MD 703 [facility] 2, [facility] 250 [place] [address] Consulting Physician Cardiology 09/10/23 Maxwell Stafford MD [address] [place] [address] 130 [place] [address] Consulting Physician Cardiology 02/13/24 Sasha Dobbins, acetylene torch burnerSurface Hydrologist 03/28/24 04/28/24 documented as of this encounter
--- OUTSIDE RECORDS SUMMARY | 2025-05-03 06:55 | XMS_ITS | Encounter Summary ---
Author Organization [facility] Address [address] [place] [address] Phone Care Team Providers Care Admission Discharge Rn Name Role Phone TysonChester Primary Care Provider [phone] Gustavo Garcia MD Unavailable [phone] Maxwell Stafford MD Unavailable [phone] Sasha Dobbins RN Unavailable Unavailable Encounter Details Date Type Department Care Team (Late st Contact Info) Description 09/13/2023 Scanned Document [facility] [address] [place] [phone] Scanning, Generic Provider Social History Tobacco Use [...] Description 05/26/2025 2:40 PM EDT Office Visit [address] [address] Gustavo Garcia MD 703 [facility] 2, [address] [place] [address] 05/27/2025 11:30 AM EDT Appointment [address] [place] [address] Arron Veloz MD 125 [facility] Medical Office [facility], [address] [place] [address] 05/28/2025 8:30 AM EDT Hospital Encounter [facility] [address] [facility] [place] [address] Maxwell Stafford MD [address] [place] [address] Persistent atrial fibrillation (Multi) 05/28/2025 8:30 AM EDT - 05/28/2025 12:30 PM EDT Surgery [facility] [address] [facility] [place] [address] Maxwell Stafford MD [address] [place] [address] Ablation A-Fib [39824 (CPT )] 05/29/2025 2:15 PM EDT Office Visit [facility] Medical Office Building [address] [place] [address] Maxwell Stafford MD [address] [place] [address] documented as of this encounter Visit Diagnoses Not on filedocumented in this encounter Additional Health Concerns Assessment Noted Time A fall risk assessment has been complete d for the patient 05/31/2023 3:24 PM EDT documented as of this encounter Care Teams Admission Discharge Rn Relationship Specialty Start Date End Date Chester [place] [address] PCP - General Internal Medicine 08/09/23 Gustavo Garcia MD [address] [place] [address] Consulting Physician Cardiology 09/10/23 Maxwell Stafford MD [address] [place] [address] 130 [place] [address] Consulting Physician Cardiology 02/13/24 Sasha Dobbins, farm or ranch animal caretakerWeb Site Specialist 03/28/24 04/28/24 documented as of this encounter
--- OUTSIDE RECORDS SUMMARY | 2025-05-03 06:55 | XMS_ITS | Encounter Summary ---
Author Organization [facility] Address [address] [place] [address] Phone Care Team Providers Care Caster Operator Name Role Phone Chester Mehta DO Primary Care Provider [phone] Gustavo Garcia MD Unavailable [phone] Maxwell Stafford MD Unavailable [phone] Sasha Dobbins RN Unavailable Unavailable Encounter Details Date Type Department Care Team (Late st Contact Info) Description 01/18/2024 Scanned Document [facility] [address] [place] [id number] Scanning, Generic Provider Social History Tobacco Use [...] Visit [facility] 703 [facility] 250 [place] [address] Gustavo Garcia MD 703 [facility] 2, [address] [place] [address] 05/27/2025 11:30 AM EDT Appointment [facility] 630 [place] [address] Arron Veloz MD [address] [facility] Medical Office [facility], [facility] 305 [place] [address] 05/28/2025 8:30 AM EDT Hospital Encounter [facility] 630 [place] [address] Maxwell Stafford MD [address] [place] [address] Persistent atrial fibrillation (Multi) 05/28/2025 8:30 AM EDT - 05/28/2025 12:30 PM EDT Surgery [facility] 630 [place] [address] Maxwell Stafford MD [address] [place] [address] Ablation A-Fib [05615 (CPT )] 05/29/2025 2:15 PM EDT Office Visit [facility] Medical Office Building [address] [place] [address] Maxwell Stafford MD [address] [place] [address] documented as of this encounter Procedures Procedure [...] documented as of this encounter Care Teams Caster Operator Relationship Specialty Start Date End Date Chester Mehta DO [address] [place] [place] [address] PCP - General Internal Medicine 08/09/23 Gustavo Garcia MD 703 [facility] 2, [facility] 250 [place] [address] Consulting Physician Cardiology 09/10/23 Maxwell Stafford MD [address] [place] [address] [address] [place] [address] Consulting Physician Cardiology 02/13/24 Sasha Dobbins, duck operatorManager Production 03/28/24 04/28/24 documented as of this encounter
--- OUTSIDE RECORDS SUMMARY | 2025-05-03 06:55 | XMS_ITS | Clinical Summary ---
Author Organization [facility] Address [address] [facility] [place] [address] Care Team Providers Care Grill Chef Name Role Phone Sam Mcdaniels MD Unavailable [phone] Michelet Painting MD Unavailable [phone] Source Comments The following information is NOT included in Care Everywhere downloads:Psychiatric notes, ECG results, Cardiac Rehab notes, Pulmonary Function notes, data from SmartForms (includes but not limited toPregnancy data,audiograms, eye exams, pre-surgical evaluation notes, well-child exam data).[facility] Allergies Active Allergy Reactions Criticality Noted Date Comments Fentanyl 05/29/2024 Patient states she had stroke like symptoms Medications DilTIAZem (CARDIZEM CD) 120 MG ER capsule Take 180 mg by mouth daily. 05/17/2024 Active Xarelto 15 MG tablet Take 15 mg by mouth at bedtime. 03/17/2024 Active pantoprazole (PROTONIX) 40 MG tablet Take 40 mg by mouth 2 times daily. 03/27/2024 Active calcium carbonate 1500 (600 Ca) MG tablet Take 600 mg by mouth daily. 01/18/2024 Active rOPINIRole (REQUIP) 1 MG tablet Take 1 mg by mouth at bedtime. Active atorvastatin (LIPITOR) 40 mg tablet Take 40 mg by mouth daily. 04/01/2024 Active amiodarone (CORDARONE) 200 MG tablet Take 200 mg by mouth daily. 04/28/2024 Active buPROPion ER (WELLBUTRIN XL) 150 MG XL tablet Take 150 mg by mouth daily. 04/21/2024 Active Multiple Vitamin (Multi Vitamin Daily) TABS Take 1 Tablet by mouth daily. Active Cholecalciferol (vitamin D3) 50 MCG (2000 UT) CAPS capsule Take 50 mcg by mouth daily. 04/01/2024 Active digoxin (LANOXIN) 125 MCG tablet Take 0.125 mg by mouth daily. 03/17/2024 Active furosemide (LASIX) 20 MG tablet Take 20 mg by mouth daily. 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 -discussed non-operative vs operative management, patient elects to Immunizations Immunization Administration Dates Next Due Influenza, Injectable, Triva lent, Adjuvanted, Preservative Free (YRW=579) 06/12/2018 Influenza, injectable, adjuv anted, quadrivalent, preservative free (ZJY=843) 05/26/2022 Influenza, injectable, high dose seasonal, trivalent, preservative free (SYF=606) 05/20/2019 Tdap (NLS=571) 07/11/2021 Social History Tobacco Use Types Packs/Day Years Used Date Smoking Tobacco: Never Assessed Comments Unknown Sex and Gender Information Value Date Recorded Sex Assigned at Not on file Legal Sex Female 3:52 PM EDT Gender Identity Not on file Sexual Orientation Not on file Last Filed Vital Signs Vital Sign Reading Time Taken Comments Blood Pressure 126/52 12/08/2024 11:14 AM EDT Pulse 95 12/08/2024 11:14 AM EDT Temperature 36.5 C (97.7 F) 12/08/2024 10:52 AM EDT Respiratory Rate 18 12/08/2024 11:14 AM EDT Oxygen Saturation 95% 12/08/2024 11:14 AM EDT Inhaled Oxygen Concentration - - Weight - - Height - - Body Mass Index - - Plan of Treatment Health Maintenance Due Date Last Done Comments Hepatitis A (HAV) Vaccine (o ptional start 19+ years) 1961 Pneumococcal Vaccine(s) (50+ yrs) (1 of 1 - PCV) 1992 Shingles (RZV) Vaccine (1 of 2) 1992 Hepatitis B (HBV) Vaccine (o ptional start 60+ years) 2002 Bone Densitometry 2007 RSV vaccine (adult) (1 - 1-d ose 75+ series) 2017 Annual Wellness Visit (G0438) 08/20/2023 COVID-19 Vaccine (4 - 2024-2 6 season) 2025 11/13/2021, 10/07/2020, 09/17/2020 Influenza Vaccine (#1) 2025 , 05/20/2019, 06/12/2018 Tetanus (Td or Tdap) Booster 07/11/2031 07/11/2021 Tdap Booster Completed 07/11/2021 Pap Smear Discontinued Insurance [employer] Care Teams Grill Chef Relationship Specialty Start Date End Date Sam Mcdaniels MD [address] [place] [address] [place] [address] Physician Gastroenterology 07/26/24 Michelet Painting MD [address] [place], [place] [id number] Physician General Surgery 01/24/25
--- OUTSIDE RECORDS SUMMARY | 2025-05-03 06:55 | XMS_ITS | Encounter Summary ---
Author Organization [facility] Address [address] [place] [address] Phone Care Team Providers Care Saw Feeder Name Role Phone Chester Mehta DO Primary Care Provider [phone] Chester Mehta DO Primary Care Provider [phone] Gustavo Garcia MD Unavailable [phone] Maxwell Stafford MD Unavailable [phone] Sasha Dobbins RN Unavailable Unavailable Encounter Details Date Type Department Care Team (Late st Contact Info) Description 08/01/2021 Orders Only [facility] [address] [place] [address] Conversion, Onbase Social History Tobacco Use Types [...] Description 05/26/2025 2:40 PM EDT Office Visit [facility] 703 [facility] [address] [place] [address] Gustavo Garcia MD 703 [facility] 2, [address] [place] [address] 05/27/2025 11:30 AM EDT Appointment [place] [address] [place] [address] Arron Veloz MD 125 [address] [facility] Medical Office [facility], [facility] [address] [place] [address] 05/28/2025 8:30 AM EDT Hospital Encounter [facility] [address] [facility] [place] [address] Maxwell Stafford MD [address] [place] [address] Persistent atrial fibrillation (Multi) 05/28/2025 8:30 AM EDT - 05/28/2025 12:30 PM EDT Surgery [facility] 630 [place] [address] Maxwell Stafford MD [address] [place] [address] Ablation A-Fib [51903 (CPT )] 05/29/2025 2:15 PM EDT Office Visit [facility] Medical [facility] Building [address] [place] [address] Maxwell tSafford MD [address] [place] [address] Scheduled Orders Name Type Priority Associated Diagnoses Orde r Schedule OUTSIDE LAB SCAN Lab Ordered: 08/01/2021 OUTSIDE LAB SCAN Lab Ordered: 08/01/2021 documented as of this encounter Visit Diagnoses Not on filedocumented in this encounter Care Teams Saw Feeder Relationship Specialty Start Date End Date Chester Mehta DO PCP - General 08/20/99 08/08/23 Chester Mehta DO [address] [place] [address] PCP - General Internal Medicine 08/09/23 Gustavo Garcia MD 703 [facility] 2, [address] [place] [address] Consulting Physician Cardiology 09/10/23 Maxwell Stafford MD 7 [facility] 130 [place] [address] Consulting Physician Cardiology 02/13/24 Sasha Dobbins, supervisor lace tearingWire Temperer 03/28/24 04/28/24 documented as of this encounter
--- OUTSIDE RECORDS SUMMARY | 2025-05-03 06:55 | XMS_ITS | Encounter Summary ---
Author Organization [facility] Address [address] [place] [address] Phone Care Team Providers Care Water Resources Technical Officer Name Role Phone Chester Mehta DO Primary Care Provider [phone] Chester Mehta DO Primary Care Provider [phone] Gustavo Garcia MD Unavailable [phone] Maxwell Stafford MD Unavailable [phone] Sasha Dobbins RN Unavailable Unavailable Encounter Details Date Type Department Care Team (Late st Contact Info) Description 06/23/2021 Orders Only [facility] [address] [place] [address] Conversion, Onbase Social History Tobacco Use Types [...] EDT Office Visit [facility] 703 [facility] [address] [place] [address] Gustavo Garcia MD 703 [facility] 2, [address] [place] [address] 05/27/2025 11:30 AM EDT Appointment [place] [address] [place] [address] Arron Veloz MD 125 [address] [facility] Medical Office [facility], [address] [place] [address] 05/28/2025 8:30 AM EDT Hospital Encounter [facility] [address] [facility] [place] [address] Maxwell Stafford MD [address] [place] [address] 130 [place] [address] Persistent atrial fibrillation (Multi) 05/28/2025 8:30 AM EDT - 05/28/2025 12:30 PM EDT Surgery [facility] 630 [place] [address] Maxwell Stafford MD [address] [place] [address] Ablation A-Fib [89894 (CPT )] 05/29/2025 2:15 PM EDT Office Visit [facility] Medical Office Building [address] [address] Maxwell Stafford MD [address] [place] [address] Scheduled Orders Name Type Priority Associated Diagnoses Orde r Schedule OUTSIDE LAB SCAN Lab Ordered: 06/23/2021 documented as of this encounter Visit Diagnoses Not on filedocumented in this encounter Care Teams Water Resources Technical Officer Relationship Specialty Start Date End Date Chester Mehta DO PCP - General 08/20/99 08/08/23 Chester Mehta DO [address] [place] [address] PCP - General Internal Medicine 08/09/23 Gustavo Garcia MD [address] [place] [address] 2, [address] [place] [address] Consulting Physician Cardiology 09/10/23 Maxwell Stafford MD [address] [place] [address] 130 [place] [address] Consulting Physician Cardiology 02/13/24 Sasha Dobbins, sales professional bilingualGate Technician 03/28/24 04/28/24 documented as of this encounter
--- OUTSIDE RECORDS SUMMARY | 2025-05-03 06:55 | XMS_ITS | Encounter Summary ---
Author Organization [facility] Address [address] [place] [address] Care Team Providers Care Steward/Stewardess Name Role Phone Chester Mehta DO Primary Care Provider [phone] Encounter Details Date Type Department Care Team (Late Contact Info) Description 04/30/2025 Bamboo flowsheet [facility] 112 [facility] 120 [place] [address] Joseph Dobbins DPM [address] [address] Social History Tobacco Use Types Packs/Day Years [...] Visit [facility] [address] [facility] 120 [place] [address] Joseph Dobbins DPM [address] [address] 07/23/2025 4:20 PM EST Procedure Visit [facility] [address] [facility] 120 [place] [address] Joseph Dobbins DPM [address] [facility] 5 [place] [address] documented as of this encounter Visit Diagnoses Not on filedocumented in this encounter Care Teams Steward/Stewardess Relationship Specialty Start Date End Date Chester Mehta DO [address] [facility] [place] [address] PCP - General Internal Medicine 02/14/23 documented as of this encounter
--- OUTSIDE RECORDS SUMMARY | 2025-05-03 06:55 | XMS_ITS | Encounter Summary ---
Author Organization [facility] Address [address] [place] [address] Phone Care Team Providers Care Oxygen Equipment Preparer Name Role Phone Chester Mehta DO Primary Care Provider [phone] Chester Mehta DO Primary Care Provider [phone] Gustavo Garcia MD Unavailable [phone] Maxwell Stafford MD Unavailable [phone] Sasha Dobbins RN Unavailable Unavailable Encounter Details Date Type Department Care Team (Late st Contact Info) Description 04/11/2021 Orders Only [facility] [address] [place] [address] Conversion, Onbase Social History Tobacco Use Types [...] Description 05/26/2025 2:40 PM EDT Office Visit [facility] 703 [facility] [address] [place] [address] Gustavo Garcia MD 703 [facility] 2, [address] [place] [address] 05/27/2025 11:30 AM EDT Appointment [place] [address] [place] [address] Arron Veloz MD 125 E [facility] Medical Office [facility], [address] [place] [address] 05/28/2025 8:30 AM EDT Hospital Encounter [facility] [address] [facility] [place] [address] Maxwell Stafford MD [address] [place] [address] 130 [place] [address] Persistent atrial fibrillation (Multi) 05/28/2025 8:30 AM EDT - 05/28/2025 12:30 PM EDT Surgery [facility] [address] [place] [address] Maxwell Stafford MD [address] [place] [address] Ablation A-Fib [25150 (CPT )] 05/29/2025 2:15 PM EDT Office Visit [facility] Medical Office Building [address] [address] Maxwell Stafford MD [address] [place] [address] Scheduled Orders Name Type Priority Associated Diagnoses Orde r Schedule OUTSIDE LAB SCAN Lab Ordered: 04/11/2021 documented as of this encounter Visit Diagnoses Not on filedocumented in this encounter Care Teams Oxygen Equipment Preparer Relationship Specialty Start Date End Date Chester Mehta DO PCP - General 08/20/99 08/08/23 Chester Mehta DO [address] [place] [address] PCP - General Internal Medicine 08/09/23 Gustavo Garcia MD [address] [place] [address] 2, [address] [place] [address] Consulting Physician Cardiology 09/10/23 Maxwell Stafford MD [address] [place] [address] 130 [place] [address] Consulting Physician Cardiology 02/13/24 Sasha Dobbins, income tax consultantRed Hat Engineer 03/28/24 04/28/24 documented as of this encounter
--- OUTSIDE RECORDS SUMMARY | 2025-05-03 06:55 | XMS_ITS | Encounter Summary ---
Author Organization [facility] Address [address] [place] [address] Phone Care Team Providers Care Plant Operator Helper Name Role Phone TysonChester Primary Care Provider [phone] Gustavo Garcia MD Unavailable [phone] Maxwell Stafford MD Unavailable [phone] Sasha Dobbins RN Unavailable Unavailable Encounter Details Date Type Department Care Team (Late st Contact Info) Description 01/20/2024 Scanned Document [facility] [address] [place] [address] Scanning, Generic Provider Social History Tobacco Use [...] Description 05/26/2025 2:40 PM EDT Office Visit [place] [address] [address] Gustavo Garcia MD 703 [facility] 2, [address] [place] [address] 05/27/2025 11:30 AM EDT Appointment [facility] 630 [place] [address] Arron Veloz MD 125 [facility] Medical Office [facility], [address] [place] [address] 05/28/2025 8:30 AM EDT Hospital Encounter [facility] 630 [place] [address] Maxwell Stafford MD [address] [place] [address] Persistent atrial fibrillation (Multi) 05/28/2025 8:30 AM EDT - 05/28/2025 12:30 PM EDT Surgery [facility] 630 [place] [address] Maxwell Stafford MD [address] [place] [address] Ablation A-Fib [64007 (CPT )] 05/29/2025 2:15 PM EDT Office Visit [facility] Medical Office Building [address] [place] [address] Maxwell Stafford MD [address] [place] [address] documented as of this encounter Visit Diagnoses Not on filedocumented in this encounter Additional Health Concerns Assessment Noted Time A fall risk assessment has been complete d for the patient 11/28/2023 3:37 PM EDT documented as of this encounter Care Teams Plant Operator Helper Relationship Specialty Start Date End Date Chester [place] [address] PCP - General Internal Medicine 08/09/23 Gustavo Garcia MD [address] [place] [address] Consulting Physician Cardiology 09/10/23 Maxwell Stafford MD [address] [place] [address] 130 [place] [address] Consulting Physician Cardiology 02/13/24 Sasha Dobbins, enterprise integration developerGolf Course Starter 03/28/24 04/28/24 documented as of this encounter
--- OUTSIDE RECORDS SUMMARY | 2025-05-03 06:57 | XMS_ITS | CCD ---
Author Organization [facility] Care Team Providers Care Chief Security Officer Name Role Phone JAZMIN العلي Primary Care Unavailable JELANI SORIA Attending Unavailable VIDAL SORIAF Admitting Unavailable SELF, REFERRED Referring Unavailable AL Procedure Practitioner Unavailab SANJUANA Maier AM Surgeon Unavailable TANNER HERRERA Surgeon Unavailable AL Procedure Practitioner Unavailab JELANI Eid Surgeon Unavailable AL Procedure Practitioner Unavailab Jazmin Buckley E Unavailable Unavailable Unavailable DO Jazmin العلي Primary Care Provider MD Debbie Mac Attending Provider John Mims Unavailable DO Jazmin العلي Primary Care Provider MD John Mims Attending Provider MD Debbie Mac Attending Provider MD John Mims Referring Provider DO Jazmin العلي Primary Care Provider MD Debbie Mac Attending Provider DO Jazmin العلي Primary Care Provider MD Debbie Mac Attending Provider DO Luis Lennon Emergency Provider [phone] DO Jay Ceja Admit Provider DO Jay Ceja Attending Provider [phone] MD Anival Easton Attending Provider DO Jazmin العلي Primary Care Provider MD Debbie Mac Attending Provider VINCENT Rolon Emergency Provider DO Jay Ceja Attending Provider [phone] ROSA Bennett Other Provider Unavailable DO Javed Dee Other Provider MD Jimena Smith Other Provider MD Christopher Richardson Other Provider MD Debbie Mac Referring Provider MD Kenny Porter Other Provider VIRGINIA Brooke Other Provider MD Bety Haile Other Provider MD Vicente [facility] Other Provider MD Isra Pedro Other Provider Eduard [facility] Cristiana Rosen Other Provider MD Yessy Ackerman Other Provider DO Katie Dukes Attending Provider Jazmin العلي Unavailable DO Jazmin العلي Primary Care Provider DO Luis Lennon Emergency Provider Unavailab DO Jay Milligan Admit Provider MD Anival Easton Attending Provider [phone] VINCENT Rolon Emergency Provider [phone] ROSA Bennett Other Provider Unavailable DO Javed Dee Other Provider MD Jimena Smith Other Provider MD Christopher Richardson Other Provider MD Debbie Mac Referring Provider MD Kenny Porter Other Provider VIRGINIA Brooke Other Provider MD Bety Haile Other Provider MD Anoop Zhang Other Provider MD Isra Pedro Other Provider Eduard [facility] Cristiana Rosen Other Provider MD Yessy Ackerman Other Provider [phone] DO Katie Dukes Attending Provider [phone] Tyson, DO Briggs Attending Provider Rachel Larios Unavailable DO Wilbur Watson Attending Provider DO Jazmin العلي Primary Care Provider DO Jay Ceja Admit Provider MD Debbie Mac Attending Provider Tyson, Dr. Jazmin Sanders Referring Aleshia العلي, Dr. Jazmin Sanders Primary Care Aleshia Chacon, Dr. French Carrillo Attending Un available BALL, DR BRIGGS Primary Care Unavailable MARKER ., DR MCMANUS Admitting Unavailable MARKER ., DR MCMANUS Attending Unavailable MARKER ., DR MCMANUS Consulting Unavailable UNLU, LUCIEN Consulting Unavailable FELICITA, DR Wolf Dyson Admitting Unavailable BALL, DR BRIGGS Primary Care Unavailable FELICITA, DR Wolf Dyson Attending Unavailable FELICITA, DR Wolf Dyson Consulting Unavailable KAREEM, DR HARDY Pisano Consulting Unavailable BALL, DR BRIGGS Admitting Unavailable BALL, DR BRIGGS Attending Unavailable BALL, DR BRIGGS Consulting Unavailable BALL, DR BRIGGS Primary Care Unavailable MEHTA, MACARENA Consulting Unavailable BALL, DR BRIGGS Admitting Unavailable BALL, DR BRIGGS Primary Care Unavailable BALL, DR BRIGGS Attending Unavailable BALL, DR BRGIGS Consulting Unavailable NEFCY, ARI Consulting Unavailable BALL, [...] Unavailable LARIOS, DR RACHEL Hahn Attending Unavailable HARRIET, DR RACHEL Hahn Consulting Unavailable Tyson DO Briggs Primary Care Provider DO Wilbur Watson Attending Provider Tyson DO Briggs Primary Care Provider MD Debbie Mac Attending Provider Tyson Jazmin MORENO Knippa Primary Care Provider Negin Garcia Unavailable Tyson Jazmin Knippa Primary Care Provider Tyson DO Briggs Primary Care Provider MD Debbie Mac Attending Provider Jazmin العلي DO Primary Care Provider Debbie Mac MD Unavailable Tyson DO Briggs Primary Care Provider MD Debbie Mac Attending Provider MD Yesica Astudillo Attending Provider MD Christopher Richardson Attending Provider Tyson Jazmin Primary Care Provider VINCENT Mendez Emergency Provider [phone] MD Izzy Capps Admit Provider MD Izzy Capps Attending Provider ROSA Bennett Other Provider Unavailable DO Javed Dee Other Provider MD Jimena Smith Other Provider MD Christopher Richardson Other Provider MD Debbie Mac Other Provider MD Kenny Porter Other Provider VIRGINIA Quach Other Provider MD Bety Haile Other Provider MD Anoop Zhang Other Provider MD Isra Pedro Other Provider Eduard [facility] Cristiana Rosen Other Provider Jazmin العلي DO Primary Care Provider Tyson, DO Briggs Attending Provider RICHARDSON BEAULIEU Admitting Unavailable RICHARDSON BEAULIEU Attending Unavailable GATO BRASWELL Referring Unavailable JAZMIN العلي Primary Care Unavailable Ball, DO Briggs Primary Care Provider Ball, DO Jazmin Primary Care Provider MD Maxwell Medrano Attending Provider MD Maxwell Medrano Referring Provider Unavailable Primary Care Provider Unavailabl DO Jazmin Swanson Primary Care Provider Maxwell Medrano MD Unavailable Jazmin العلي DO Primary Care Provider Maxwell Medrano MD Attending Provider Maxwell Medrano MD Referring Provider Vanessa KAUR, Vic Pritchard Emergency Provider Jossy MUIR, Shilpa Admit Provider [phone] Shilpa Fenton MD Attending Provider Jimena Smith MD Referring Provider Enedelia MUIR, Katie Unavailable Mu LEE, Sasha Unavailable Unavailable Mu RN, Sasha Unavailable Unavailable Tyson MORENO Jazmin Primary Care Provider Aroldo Peña MD Admit Provider Fahad Kim DO Attending Provider [phone] María Joyce MD Other Provider Stephanie Bennett RN Other Provider Unavailable Javed Dee DO Other Provider Dylan MUIR, Christopher Monzon Other Provider [phone] Debbie Mac MD Other Provider O'William MD, Kenny Other Provider Dee Quach APRN Other Provider Bety Haile MD Other Provider Vicente MUIR, Anoop Badillo Other Provider Isra Pedro MD Other Provider Eduard [facility], Cristiana Rosen Other Provider Wilda MUIR, Andrius Attending Provider Jazmin العلي DO Attending Provider Gracia Craig DO Emergency Provider Jazmin العلي DO Primary Care Provider [phone] Jimena Smith MD Other Provider Gialisonraabdoul MUIR, Andrius Vytautas Attending Unavailable Giedraitis , Andrius Vy[place]as Attending Unavailable Giedraitis , Andrius [place]as Attending Unavailable Giedraitis , Andrius [place]as Attending Unavailable Giedraitis , Andrius [place]as Attending Unavailable Giedraitis , Andrius [place]as Attending Unavailable Debbie Mac MD Unavailable Maxwell Medrano MD Unavailable KATIE YUNG Referring Unavailable PROVIDER, UNKNOWN Admitting Unavailable PROVIDER, UNKNOWN Attending Unavailable KATIE YUNG Attending Unavailable PROVIDER, UNKNOWN Admitting Unavailable KATIE YUNG Attending Unavailable PROVIDER, UNKNOWN Admitting Unavailable KATIE YUNG Attending Unavailable PROVIDER, UNKNOWN Admitting Unavailable NIGEL EL Attending Unavailable PROVIDER, UNKNOWN Admitting Unavailable NIGEL EL Attending Unavailable PROVIDER, UNKNOWN Admitting Unavailable NIGEL EL Attending Unavailable PROVIDER, UNKNOWN Admitting Unavailable PROVIDER, UNKNOWN Admitting Unavailable PROVIDER, UNKNOWN Attending Unavailable AMNA POWELL Referring Unavailable NIGEL EL Admitting Unavailable NIGEL EL Attending Unavailable NIGEL EL Referring Unavailable KATIE YUNG Attending Unavailable KTAIE YUNG Admitting Unavailable Jazmin العلي DO Primary Care Provider Maggie Rod MD Emergency Provider [phone] Ángel Minaya MD Admit Provider Ángel Minaya MD Attending Provider [phone] Fahad Kim DO Attending Provider [phone] Jazmin العلي DO Primary Care Provider Fahad Kim Attending Unavailable Aroldo Peña Admitting Unavailable Asaad, Imad Consulting [facility] Care Unavailable Mischler, Stephanie Consulting Unavailable Javed Dee Consulting Unavailable Sarah, Hess Consulting Unavailable Christopher Richardson Consulting Unavail able Debbie Mac Consulting Unavailable Kenny Porter Consulting Unavailab Dee Jacobs Consulting Unavailable Haile, Bety Consulting Unavailable Vicente, Anoop Najeeb Consulting Unavailab shant Pedro, Tarek Consulting Unavailable Cristiana Chapa Consulting [facility]available [facility] Primary Care Unavailable Jazmin العلي Admitting Unavailable Jazmin العلي Attending Unavailable Rivera, Maxwell N Admitting Unavailable [facility] Primary Care Unavailable Trey Medranoto N Attending Unavailable Rivera, Maxwell N Referring Unavailable [facility] Care Unavailable Giedraitis, Andrius Admitting Unavailable Giedraitis, Andrius Attending Unavailable Gracia Craig Attending Unavailable [facility] Primary Care Unavailable Gracia Craig Admitting Unavailable Yarelichler, Stephanie Consulting Unavailable [facility] Primary Care Unavailable Ángel Minaya Admitting Unavailable Fahad Kim Attending Unavailable Allyer, Stephanie Consulting Unavailable Javed Dee Consulting Unavailable Smith, Hess Consulting Unavailable Christopher Richardson Consulting Unavail able Debbie Mac Consulting Unavailable Kenny Porter Consulting Unavailab Dee Jacobs Consulting Unavailable Haile, Bety Consulting Unavailable Vicente, Anoop Najeeb Consulting Unavailab shant Pedro, Tarek Consulting Unavailable Cristiana Chapa Consulting Unavailable Sabrina, Stephanie Consulting Unavailable Smith, Hess Referring Unavailable Tosin Fentona Attending Unavailable [facility] Primary Care Unavailable Jossy Shilpa Admitting Unavailable Javed Dee Consulting Unavailable Smith, Hess Consulting Unavailable Christopher Richardson Consulting Unavail able Debbie Mac Consulting Unavailable Kenny Porter Consulting Unavailab Dee Jacobs Consulting Unavailable Bety Haile Consulting Unavailable Anoop Zhang Consulting Unavailab Isra Lutz Consulting Unavailable Cristiana Chapa Consulting Unavailable MEDRANO, MAXWELL N Referring Unavailable BALL, JAZMIN E Primary Care Unavailable MEDRANO, MAXWELL N Referring Unavailable BALL, JAZMIN E Primary Care Unavailable MEDRANO, MAXWELL N Referring Unavailable BALL, JAZMIN E Primary Care Unavailable MEDRANO, MAXWELL N Admitting Unavailable MEDRANO, MAXWELL N Attending Unavailable BALL, JAZMIN E Primary Care Unavailable BALL, JAZMIN E Primary Care Unavailable MEDRANO, MAXWELL N Referring Unavailable BALL, JAZMIN E Primary Care Unavailable MEDRANO, MAXWELL N Attending Unavailable MEDRANO, MAXWELL N Referring Unavailable BALL, JAZMIN E Primary Care Unavailable EDUARD, CRISTIANA L Attending Unavailable MEDRANO, MAXWELL N Referring Unavailable BALL, JAZMIN E Primary Care Unavailable MEDRANO, MAXWELL N Attending Unavailable EDUARD, CRISTIANA L Referring Unavailable BALL, JAZMIN E Primary Care Unavailable DEBBIE MAC Attending Unavailable BALL, JAZMIN E Primary Care Unavailable MEDRANO, MAXWELL N Attending Unavailable BALL, JAZMIN E Primary Care Unavailable EDUARD, CRISTIANA Rosen Attending Unavailable BALL, JAZMIN E Primary Care Unavailable JOSEPH SEPULVEDA Attending Unavailable JOSEPH SEPULVEDA Attending Unavailable Allergies Allergy Classification Reported Allergen(s) Allergy Type Date of Onset Reaction(s) Facility (1 source) apixaban Drug Allergy 07-26-20 [facility] Repository (20 sources) Sulfonamides (Antibiotic); Translations: [SULFA (SULFONAMIDE ANTIBIOTICS)] Drug allergy (disorder) 07-29-20 13 Itching [facility] Repository (20 sources) Sulfonamides (Antibiotic); Translations: [Sulfa Drugs] Allergy to drug (finding) [facility] 250 DO Work Phone: (20 sources) fentaNYL; Translations: [fentanyl] Drug Allergy 08-22-[address] [facility] (20 sources) Sulfonamides (Antibiotic) Propensity to adverse reactions Unknown [facility] Other (1 source) fentaNYL Drug Allergy 08-06-20 [facility] Repository (1 source) patient allergy list reviewed by nurse or physicia Propensity to adverse reactions 04-15-20 Comment:Done [facility] Other (20 sources) Substance with sulfonamide structure and antibacterial mechanism of action (substance) Drug allergy 02-20-20 23 Unknown [facility] Other (1 source) [facility]enta[facility]L Drug Allergy 04-18-20 [facility] Repository (1 source) Sulfonamides (Antibiotic) Drug allergy (disorder) 04-18-20 [facility] Repository Medications Current Medications Medication Drug Class(es) Dates Sig (Normalized) Sig (Original) acetaminophen 325 mg oral tablet (20 sources) Start: 12-08-2024 End: 12-08-2024 650 mg, Oral, PACU ONCE PRN, Starting on Sun12/08/24 at 1002, Until Sun12/08/24 at 1601, Mild Pain (pain score 1,2,3), PACU Now Start: 04-01-2024 take 1 capsule by mo [facility] every six hours as needed for pain Acetaminophen 325 mg capsule Active 325 MG PO Every 6 hours as needed for fever or pain April 01, 2024 12:00am Start: 11-20-2022 End: 11-24-2023 take 1 tablet by mouth once as needed for pain Acetaminophen (Tylenol) 325 mg Tablet Discontinued 325 MG PO Once as needed for Pain November 20, 2022 12:00am November 24, 2023 10:06am acetaminophen (T ylenol Extra Strength) 500 MG tablet every 6 (six) hours. Active take 1 tablet by nghia every six hours Tylenol 8 Hour 650 MG Oral Tablet Extended Release TAKE 1 TABLET Every 6 hours PRN Quantity: 0 Refills: 0 Ordered: 04-Jan-2023 DO Active acetaminophen 325 mg / HYDROcodone bitartrate 10 mg oral tablet (20 sources) Opioid Agonist Start: 11-24-2023 HYDROcodone-ac etaminophen (Peetz) 10-325 MG tablet 1 tablet 11/24/2023 Active Start: 04-05-2022 End: 01-18-2024 take 1 tablet by mouth once daily Hydrocodone-Acetaminophen 10-325 mg tabl et Discontinued 1 TAB PO Daily November 24, 2023 12:00am January 18, 2024 3:56pm Start: 04-21-2021 End: 12-05-2021 Hydrocodone-Acetaminophen 5- 325 mg tablet Discontinued 1 TAB PO As Directed as needed for Pain April 21, 2021 12:00am December 05, 2021 [...] 0 Refills: 0 Ordered: 26-Jul-2021 DO Active amiodarone hydrochloride 200 mg oral tablet (20 sources) Antiarrhythmic Start: 02-02-2025 take 1 tablet by mouth once daily amiodarone (Pacerone) 200 mg tablet Indications: Persistent atrial fibrillation (Multi) TAKE 1 TABLET BY MOUTH EVERY DAY 90 tablet 1 02/02/2025 Active Start: 07-02-2024 End: 09-10-2024 take 2 tablets by mouth once daily Amiodarone 200 mg Tablet Discontinued 400 MG PO Daily 60 July 02, 2024 1:00am September 10, 2024 2:37pm Start: 04-28-2024 End: 05-05-2025 take 1 tablet by mouth twice daily, then take 1 tablet by mouth once daily amiodarone (Pacerone) 200 mg tablet Indications: Persistent atrial fibrillation (Multi) Take 1 tablet (200 mg) by mouth 2 times a day for 7 days, THEN 1 tablet (200 mg) once daily. 374 tablet 04/28/2024 06/05/2024 Discontinued Start: 07-01-2021 End: 12-05-2021 take 1 tablet by mouth twice daily Amiodarone 200 mg Tablet Discontinued 200 MG PO Twice daily 60 July 01, 2021 1:00am December 05, 2021 12:29pm Start: 04-11-2021 End: 07-03-2021 take [id number] tablet by mouth once daily Amiodarone 200 mg tablet Discontinued 200 MG PO Daily April 11, 2021 12:00pm July 03, 2021 3:41pm start 04/15 Start: 03-18-2021 End: 04-11-2021 Amiodarone 200 mg Tablet Discontinued 200 MG PO Twice daily 60 March 18, 2021 12:00am April 11, 2021 11:54am On Hold: Resume on 04/15/21. Hold for 3 days then decrease to 100 mg every day Start: 12-16-2020 End: 03-18-2021 take 1 tablet by mouth once daily Amiodarone 100 mg tablet Discontinued 100 MG PO Daily 30 December 16, 2020 12:00am March 18, 2021 12:03pm Start: 12-14-2020 End: 12-02-2024 take 1 tablet by mouth once daily amiodarone (Pacerone) 200 mg tablet Indications: Persistent atrial fibrillation (Multi) TAKE 1 TABLET BY MOUTH EVERY DAY 90 tablet 1 02/02/2025 Active atorvastatin 40 mg oral tablet (20 sources) HMG-CoA Reductase Inhibitor Start: 04-01-2024 take 1 tablet by mouth once daily atorvastatin (LIPITOR) 40 mg tablet Take 40 mg by mouth daily. 04/01/2024 Active Start: 03-07-2024 End: 04-01-2024 take 1 tablet by mouth once daily in the evening Atorvastatin 40 mg tablet Discontinued 0 .ROUTE .COMPLEX March 07, 2024 11:46am April 01, 2024 8:23am TAKE 1 TABLET BY MOUTH EVERY DAY IN THE EVENING Start: 12-14-2020 End: 03-07-2024 take 1 tablet by mouth once daily at bedtime Atorvastatin 40 mg tablet Discontinued 40 MG PO Daily at bedtime November 24, 2023 10:05am March 07, 2024 11:46am betamethasone 0.5 mg/ml / clotrimazole 10 mg/ml topical cream (20 sources) Azole Antifungal, Corticosteroid Start: 11-24-2023 clotrimazole-betamethasone (Lotrisone) cream Twice daily 11/24/2023 Active Start: 11-24-2023 End: 01-18-2024 Clotrimazole-Betamethasone 1 -0.05 % cream Discontinued APPLIC TOPICAL Twice daily November 24, 2023 12:00am January 18, 2024 3:56pm APPLY DAILY TO SKIN TO AFFECTED AREA TWICE A DAY FOR 7 DAYS Start: 03-07-2023 Clotrimazole-Bet amethasone 1-0.05 % APPLY DAILY TO SKIN TO AFFECTED AREA TWICE A DAY FOR 7 DAYS for 30 Active Biotin w/ Vitamins C & E (Hair Skin & Nails Gummies) 1250-7.5-7.5 MCG-MG-UNT chewable tablet (5 sources) Biotin w/ Vitami ns C & E (Hair Skin & Nails Gummies) 1250-7.5-7.5 MCG-MG-UNT chewable tablet as directed Orally Active calcium carbonate 1500 mg oral tablet (20 sources) Start: 01-18-2024 take 1 tablet by mouth once daily calcium carbonate 1500 (600 Ca) MG tablet Take 600 mg by mouth daily. 01/18/2024 Active take 1 tablet by mouth every twe lve hours Calcium 600 MG 1 tablet with meals Orally Twice a day Active Calcium Carbonate / vitamin D3 (12 sources) calcium carbonat e/vitamin D3 (CALCIUM 600 + D,3, ORAL) Take 600 mg by mouth. Active cholecalciferol 0.05 mg oral capsule (20 sources) Vitamin D Start: 4 End: take 1 capsule by mouth once daily Cholecalciferol (vitamin D3) 50 MCG (2000 UT) CAPS capsule Take 50 mcg by mouth daily. 04/01/2024 Active take 1 capsule by mouth once jesica ly cholecalciferol (Vitamin D-3) 50 mcg (2,000 unit) capsule Take 1 capsule (2,000 Units) by mouth once daily. Active take 1 tablet by mouth once dominga y cholecalciferol (Vitamin D3) 5,000 Units tablet Take 1 tablet (5,000 Units) by mouth once daily. Active take 2 tablets by tn ut every twenty-four hours Vitamin D3 10 MCG (400 UNIT) 2 tablets O rally Once a day Active clindamycin 300 mg oral capsule (1 source) Lincosamide Antibacterial Start: 04-30-2025 End: 05-10-2025 take 1 capsule by mouth in the morning, then take 1 capsule by mouth in the evening, then take 1 capsule by mouth at bedtime clindamycin (Cleocin) 300 MG capsule Indications: Cellulitis of left foot Take 1 capsule (300 mg) by mouth in the morning and 1 capsule (300 mg) in the evening and 1 capsule (300 mg) before bedtime. Do all this for 10 days. 30 capsule 04/30/2025 05/10/2025 Active 24 hr dilTIAZem hydrochloride 120 mg extended release oral capsule (20 sources) Calcium Channel Leland Start: 05-17-2024 DilTIAZem (CARDIZEM CD) 120 MG ER capsule Take 180 mg by mouth daily. 05/17/2024 Active Start: 01-20-2024 End: 04-01-2024 take 1 capsule by mouth once daily Diltiazem Hcl 120 mg capsule,extended release 24hr Discontinued 120 MG PO Daily January 20, 2024 12:00am April 01, 2024 8:23am Start: 11-28-2023 End: 11-27-2024 take 1 capsule by mouth once daily dilTIAZem CD (Cardizem CD) 180 mg 24 hr capsule Indications: Persistent atrial fibrillation (Multi) Take 1 capsule (180 mg) by mouth once daily. 30 capsule 11 11/28/2023 Active Start: 02-26-2023 End: 11-29-2023 take 1 capsule by mouth twice daily Diltiazem Hcl 120 mg capsule,extended release 24hr Discontinued 120 MG PO Twice daily February 26, 2023 3:48pm November 29, 2023 6:16pm Start: 11-27-2022 End: 02-26-2023 take 1 capsule by mouth once daily Diltiazem Hcl 120 mg capsule,extended release 24hr Discontinued 120 MG PO Daily November 27, 2022 12:00am February 26, 2023 3:48pm Start: 06-27-2020 End: 12-14-2020 take 1 capsule by mouth once daily Diltiazem Hcl 120 mg Capsule,Extended Release 24hr Discontinued 120 MG PO Daily June 27, 2020 1:00am December 14, 2020 10:44am take 1 tablet by nghia once daily dilTIAZem HCl - 120 MG Oral Tablet Take 1 tablet daily Quantity: 0 Refills: 0 Ordered: 04-Jan-2023 DO Active doxycycline hyclate 100 mg oral capsule (8 sources) Tetracycline-class Drug Start: 01-21-2025 take 1 capsule by mouth twice daily Doxycycline Hyclate 100 mg capsule Active 100 MG PO Twice daily 14 January 21, 2025 12:00am Start: 09-12-2024 End: 01-09-2025 take 1 tablet by mouth twice daily Doxycycline Hyclate 100 mg tablet Discontinued 100 MG PO Twice daily 08 06September 12, 2024 1:00am January 09, 2025 2:30pm DULoxetine 30 mg delayed release oral capsule (17 sources) Serotonin and Norepinephrine Reuptake Inhibitor Start: 10-06-2024 End: 12-24-2024 take 1 capsule by mouth once daily DULoxetine (Cymbalta) [address] capsule Take 1 capsule (30 mg) by mouth once daily. 10/06/2024 Active fluocinonide 0.5 mg/ml topical solution (7 sources) Corticosteroid Start: 01-15-2024 fluocinonide (Lidex) 0.05 % external solution Indications: Rash and other nonspecific skin eruption Apply to affected areas on the scalp, up to twice a day when flared, 30 day supply 60 mL 11 01/15/2024 Active fluocinonide (Li dex) 0.05 % external solution Apply topically 3 times a day. Active furosemide 40 mg oral tablet (20 sources) Loop Diuretic Start: 01-23-2025 take 1 tablet by mouth once daily Furosemide 40 mg Tablet Active 40 MG PO Daily January 23, 2025 12:00am Start: 01-20-2024 End: 01-23-2025 take 1 tablet by mouth once daily furosemide (Lasix) 20 mg tablet Indications: Chronic diastolic heart failure , Shortness of breath TAKE 1 TABLET BY MOUTH EVERY DAY 90 tablet 3 01/05/2025 Active Start: 03-18-2021 End: 09-01-2022 Furosemide 40 mg Tablet Disc ontinued 40 MG PO Daily July 03, 2021 3:40pm September [...] 27, 2020 1:00am December 14, 2020 10:51am gabapentin 100 mg oral capsule (5 sources) Anti-epileptic Agent Start: 12-06-2023 take 1 capsule by mouth once daily gabapentin (Neurontin) 100 MG capsule Take 100 mg by mouth Daily 12/06/2023 Active Lactobacillus acidophilus (20 sources) Start: 06-22-2021 take 1 capsule by mouth once daily Lactobacillus Acidophilus (Acidophilus) Capsule Active 1 CAP PO Daily June 22, 2021 4:33pm Start: 06-22-2021 End: 12-05-2021 take 1 capsule by mouth once daily Lactobacillus Acidophilus (Acidophilus) Capsule Discontinued 1 CAP PO Daily June 22, 2021 12:00am December 05, 2021 12:29pm Start: 06-22-2021 End: 12-05-2021 take 1 capsule by mouth once daily Lactobacillus Acidophilus (Acidophilus) Capsule Discontinued 1 CAP PO Daily June 21, 2021 11:00pm December 05, 2021 11:29am Start: 06-22-2021 End: 12-05-2021 take 1 capsule by mouth once daily Lactobacillus Acidophilus (Acidophilus) Capsule Discontinued 1 CAP PO Daily June 22, 2021 12:00am December 05, 2021 12:29pm take 1 capsule by mo [facility] once daily Acidophilus Oral Capsule TAKE 1 CAPSULE Daily Quantity: 0 Refills: 0 Ordered: 06-Jun-2021 DO Active magnesium oxide 400 mg oral tablet (20 sources) Start: 03-28-2024 End: 09-24-2024 take 1 tablet by mouth once daily Magnesium Oxide 400 mg magnesium tablet Active 400 MG PO Daily April 08, 2024 12:00am melatonin 10 mg oral capsule (1 source) Start: 01-23-2025 take 2 capsules by mouth once daily at bedtime Melatonin 10 mg capsule Active 20 MG PO Daily at bedtime January 23, 2025 12:00am 24 hr metoprolol succinate 50 mg extended release oral tablet (20 sources) beta-Adrenergic Leland Start: 01-23-2025 take 1 tablet by mouth once daily Metoprolol Succinate 50 mg Tablet Extended Release 24 Hr Active 50 MG PO Daily 90 90 January 23, 2025 12:00am Start: 07-23-2024 End: 09-10-2024 take 1 tablet by mouth twice daily Metoprolol Tartrate 25 mg Tablet Discontinued 25 MG PO Twice daily 60 30 July 23, 2024 1:00am September 10, 2024 2:37pm Start: 09-06-2022 Metoprolol Tar trate 100 MG Oral Tablet Quantity: 60 Refills: 0 Ordered: 06-Sep-2022 DO Start : 06-Sep-2022 Complete Start: 09-06-2022 End: 09-21-2022 take 1 tablet by mouth twice daily Metoprolol Tartrate 100 mg Tablet Discontinued 100 MG PO Twice daily 60 September 06, 2022 1:00am September 21, 2022 4:48pm Start: 09-01-2022 End: 09-06-2022 Metoprolol Tartrate 50 mg ta blet Discontinued 75 MG PO Twice daily September 01, 2022 1:50pm September 06, 2022 11:58am Start: 09-01-2022 End: 09-06-2022 take 75 mg [...] dose increase Start: 07-01-2021 End: 09-01-2022 take 1 tablet by mouth twice daily Metoprolol Tartrate 50 mg Tablet Discontinued 50 MG PO Twice daily 60 30 July 01, 2021 1:00am September 01, 2022 1:51pm Start: 06-30-2021 End: 07-03-2021 take 1 tablet by mouth twice daily Metoprolol Succinate 25 mg tablet extended release 24 hr Discontinued 25 MG PO Twice daily June [...] 180 Refills: 3 Ordered: 06-Jun-2021 DO Active Multiple Vitamin (Multi Vitamin Daily) TABS (16 sources) take 1 tablet by nghia th once daily Multiple Vitamin (Multi Vitamin Daily) TABS Take 1 Tablet by mouth daily. Active take 1 tablet by mouth once dominga y Multiple Vitamin (Multi Vitamin Daily) TABS Take 1 Tablet by mouth daily. Suspended multivitamin (Daily Multi-Vitamin) tablet (18 sources) take 1 tablet by nghia th once daily multivitamin (Daily Multi-Vitamin) tablet Take 1 tablet by mouth once daily. Active take 1 tablet by mouth once dominga y multivitamin (Daily Multi-Vitamin) tablet Take 1 tablet by mouth once daily. 0 Active Multivitamin preparation (20 sources) Start: 04-01-2024 take 1 tablet by mouth once daily Multivitamin Active 1 TAB PO Daily April 01, 2024 12:00am Start: 04-21-2021 take 1 tablet by [...] April 21, 2021 12:00am Multivitamin Act ginny Multivitamin tablet (13 sources) Start: 04-01-2024 take 1 tablet by mouth once daily Multivitamin tablet Active 1 TAB PO Daily April 01, 2024 12:00am Start: 04-01-2024 take 1 tablet by nghia th once daily Multivitamin tablet Active 1 TAB PO Daily March 31, 2024 11:00pm mupirocin 0.02 mg/mg topical ointment (13 sources) RNA Synthetase Inhibitor Antibacterial Start: 08-27-2024 End: 01-13-2025 Mupirocin 2 % ointment Active 1 APPLIC TOPICAL Twice daily 10 06January 13, 2025 9:26am 2 ml ondansetron 2 mg/ml injection (1 source) Serotonin-3 Receptor Antagonist Start: 12-08-2024 End: 12-08-2024 take 4 mg intravenously once as needed for nausea 4 mg, Intravenous Push, PACU ONCE PRN, Starting on Sun12/08/24 at 1002, Until Sun12/08/24 at 1601, Nausea, Vomiting, PACU Now pantoprazole 40 mg delayed release oral tablet (20 sources) Proton Pump Inhibitor Start: 03-27-2024 End: 09-05-2024 take 1 tablet by mouth once daily Pantoprazole 40 mg tablet,delayed release (DR/EC) Discontinued 40 MG PO Daily April 08, 2024 12:00am April 18, 2024 10:20am Start: 03-27-2024 End: 01-22-2025 take 1 tablet by mouth twice daily pantoprazole (PROTONIX) 40 MG tablet Take 40 mg by mouth 2 times daily. 03/27/2024 Active pyridostigmine bromide 30 mg oral tablet (20 sources) Start: 05-15-2022 take 1 tablet by mouth every twelve hours rivaroxaban 20 mg oral tablet (20 sources) Factor Xa Inhibitor Start: 01-23-2025 take 1 tablet by mouth once daily at dinner Rivaroxaban (Xarelto) 20 mg tablet Active 20 MG PO Daily January 23, 2025 12:00am must administer with evening meal Start: 12-05-2021 End: 12-22-2025 take 1 tablet by mouth once daily at mealtime rivaroxaban (Xarelto) 15 mg tablet Indications: Other persistent atrial fibrillation Take 1 tablet (15 mg) by mouth once daily in the evening. Take with meals. 90 tablet 3 12/22/2024 12/22/2025 Active Start: 03-18-2021 End: 07-03-2021 take 1 tablet [...] tablet (20 sources) Nonergot Dopamine Agonist Start: 06-09-2024 take 1 tablet by mouth once daily Ropinirole 1 mg tablet Active 0 .ROUTE .COMPLEX 90 June 09, 2024 10:42am TAKE 1 TABLET BY MOUTH EVERY NIGHT Start: 07-12-2021 take 1 tablet by nghia th at bedtime rOPINIRole HCl - 2 MG Oral Tablet TAKE 1 TABLET AT BEDTIME. Quantity: 0 Refills: 0 Ordered: 02-Oct-2021 DO Start : 12-Jul-2021 Active Start: 06-30-2021 End: 06-09-2024 take 1 tablet by mouth once daily at bedtime rOPINIRole (Requip) 1 mg tablet Take 1 tablet (1 mg) by mouth once daily at bedtime. 07/12/2021 Active Start: 12-16-2020 End: 06-30-2021 take 1 tablet by mouth once daily at bedtime Ropinirole 0.5 mg Tablet Discontinued 0.5 MG PO Daily at bedtime December 16, 2020 12:00am June 30, 2021 3:33pm Vitamin D3 5000 UNIT (20 sources) Vitamin D3 5000 UNIT as directed Orally Active Completed/Discontinued Medications Medication Drug Class(es) Dates Sig (Normalized) Sig (Original) acetaminophen 325 mg / oxyCODONE hydrochloride 5 mg oral tablet (20 sources) Opioid Agonist Start: 07-24-2024 End: 07-31-2024 take 1 tablet by mouth every four hours as needed for pain Oxycodone-Acetamino phen 5-325 mg Tablet Discontinued 1 TAB PO Q4H as needed for Pain Scale 4 - 7 12 2 July 24, 2024 July 31, 2024 12:43pm Start: 03-05-2023 End: 11-24-2023 take 2 tablets by mouth every six hours as needed for pain Oxycodone-Acetaminophen (Percocet) 5-325 mg tablet Discontinued 2 TAB PO Q6H as needed for pain 30 7 March 05, 2023 November 24, 2023 10:07am Start: 06-25-2020 End: 12-14-2020 take 5-325 tablets by mouth once as needed for pain Oxycodone-Acetaminophen (Percocet) 5-325 mg tablet Discontinued 1 TAB PO Per protocol as needed for Pain June 25, 2020 1:00am December 14, 2020 10:44am 5 - 325 tab orally as needed apixaban 5 mg oral tablet (20 sources) Factor Xa Inhibitor Start: 06-25-2020 End: 12-14-2020 take 1 tablet by mouth twice daily Apixaban (Eliquis) 5 mg tablet Discontinued 5 MG PO Twice daily June 25, 2020 1:00am December 14, 2020 10:44am ascorbic acid-vitamin E-biotin (Hair, Skin, Nails with Biotin) 7.5-7.5-1,250 mg-unit-mcg tablet,chewable (11 sources) End: 06-05-2024 ascorbic acid-vitamin E-biotin (Hair, Skin, Nails with Biotin) 7.5-7.5-1,250 mg-unit-mcg tablet,chewable Chew 1 tablet once daily. 06/05/2024 Discontinued (Med List Cleanup) ascorbic acid-vi tamin E-biotin (Hair, Skin, Nails with Biotin) 7.5-7.5-1,250 mg-unit-mcg tablet,chewable Chew 1 tablet once daily. Active ascorbic acid-vi tamin E-biotin (Hair, Skin, Nails with Biotin) 7.5-7.5-1,250 mg-unit-mcg tablet,chewable Chew 1 tablet once daily. 0 Active Barium Sulfate (1 source) Start: 06-26-2024 End: 06-26-2024 1 Tablet, Oral, Once at Radiology exam, 1 dose, Starting on Tracie 06/26/24 at 1153, Until Tracie 06/26/24 at 1150, Imaging Protocol Orders Barium Sulfate 60 % (1 source) Start: 06-26-2024 End: 06-26-2024 take 1 dose by mouth once 475 mL, Oral, Once at Radiology exam, 1 dose, Starting on Tracie 06/26/24 at 1153, Until Tracie 06/26/24 at 1130, Imaging Protocol Orders Barium Sulfate 98 % suspension (1 source) Start: 06-26-2024 End: 06-26-2024 take 1 dose by mouth once 240 mL (8 oz), Oral, Once at Radiology exam, 1 dose, Starting on Tracie 06/26/24 at 1153, Until Tracie 06/26/24 at 1140, Imaging Protocol Orders Biotin (20 sources) Start: 02-26-2023 End: 11-24-2023 take 1 tablet by mouth once daily in the morning Biotin (Hair, Skin And Nails (Biotin)) 10,000 mcg Tablet,Chewable Discontinued 84437 MCG PO Every morning February 25, 2023 11:00pm November 24, 2023 9:06am Start: 02-26-2023 End: 11-24-2023 take 1 tablet by mouth once daily in the morning Biotin (Hair, Skin And Nails (Biotin)) 10,000 mcg Tablet,Chewable Discontinued 11304 MCG PO Every morning February 26, 2023 12:00am November 24, 2023 10:06am Start: 02-26-2023 take 1 tablet by nghia th once daily in the morning Biotin (Hair, Skin And Nails (Biotin)) 10,000 mcg Tablet,Chewable Active 64725 MCG PO Every morning February 25, 2023 11:00pm Start: 02-26-2023 take 1 tablet by nghia th once daily in the morning Biotin (Hair, Skin And Nails (Biotin)) 10,000 mcg Tablet,Chewable Active 89785 MCG PO Every morning February 26, 2023 12:00am buPROPion (20 sources) Aminoketone Start: 07-28-2024 End: 10-06-2024 take 1 tablet by mouth once daily in the morning Bupropion Hcl 150 mg tablet extended release 24 hr Discontinued 0 .ROUTE .COMPLEX July 28, 2024 1:58pm October 06, 2024 5:15pm TAKE 1 TABLET BY MOUTH EVERY DAY IN THE MORNING Start: 07-28-2024 End: 10-06-2024 take 1 tablet by mouth once daily in the morning Bupropion Hcl 150 mg tablet extended release 24 hr Discontinued 0 .ROUTE .COMPLEX July 28, 2024 12:58pm October 06, 2024 4:15pm TAKE 1 TABLET BY MOUTH EVERY DAY IN THE MORNING Start: 07-28-2024 take 1 tablet by nghia th once daily in the morning Bupropion Hcl 150 mg tablet extended release 24 hr Active 0 .ROUTE .COMPLEX July 28, 2024 12:58pm TAKE 1 TABLET BY MOUTH EVERY DAY IN THE MORNING Start: 06-30-2024 End: 07-25-2024 take 1 tablet by mouth once daily in the morning Bupropion Hcl 300 mg tablet extended release 24 hr Discontinued 300 MG PO Every morning June 30, 2024 1:00am July 25, 2024 4:27pm Start: 05-28-2024 End: 06-24-2024 take 1 tablet by mouth once daily in the morning Bupropion Hcl 300 mg tablet extended release 24 hr Discontinued 300 MG PO Every morning May 28, 2024 5:12pm June 24, 2024 5:13pm Start: 04-21-2024 End: 10-23-2024 take 1 tablet by mouth once daily buPROPion ER (WELLBUTRIN XL) 150 MG XL tablet Take 150 mg by mouth daily. 04/21/2024 Active Start: 06-25-2020 End: 12-14-2020 take 1 tablet by mouth once daily before breakfast Bupropion Hcl (Wellbutrin Xl) 300 mg tablet extended release 24 hr Discontinued 300 MG PO Daily before breakfast June 25, 2020 1:00am December 14, 2020 10:40am cephalexin 500 mg oral capsule (20 sources) Cephalosporin Antibacterial Start: 01-13-2025 End: 01-22-2025 take 1 capsule by mouth three times daily Cephalexin 500 mg capsule Discontinued 500 MG PO Three times daily 09 03January 13, 2025 12:00am January 22, 2025 10:59pm Start: 08-27-2024 End: 09-09-2024 take 1 capsule by mouth three times daily Cephalexin 500 mg capsule Discontinued 500 MG PO Three times daily 09 03August 27, 2024 1:00am September 09, 2024 4:05pm Start: 09-21-2022 End: 11-20-2022 take 1 capsule by mouth twice daily Cephalexin 500 mg capsule Discontinued 500 MG PO Twice daily 11 19September 21, 2022 1:00am November 20, 2022 8:18am Start: 07-03-2021 End: 12-05-2021 take 1 capsule by mouth twice daily Cephalexin 500 mg capsule Discontinued 500 MG PO Twice daily 4 2 July 03, 2021 1:00am December 05, 2021 12:12pm cyclobenzaprine hydrochloride 5 mg oral tablet (20 sources) Muscle Relaxant Start: 03-03-2024 End: 04-01-2024 take 1 tablet by mouth once daily at bedtime Cyclobenzaprine 5 mg tablet Discontinued 5 MG PO Daily at bedtime March 03, 2024 12:00am April 01, 2024 8:20am dexamethasone 6 mg oral tablet (20 sources) Corticosteroid Start: 06-27-2020 End: 12-14-2020 take 1 tablet by mouth once daily Dexamethasone 6 mg Tablet Discontinued 6 MG PO Daily June 27, 2020 1:00am December 14, 2020 10:40am digoxin 0.125 mg oral tablet (20 sources) Cardiac Glycoside Start: 05-28-2024 End: 07-03-2024 take 1 tablet by mouth every other day Digoxin 125 mcg (0.125 mg) tablet Discontinued 125 MCG PO every other day May 28, 2024 8:13pm July 03, 2024 2:49pm Start: 03-17-2024 take 0.125 mg by nghia th once daily digoxin (LANOXIN) 125 MCG tablet Take 0.125 mg by mouth daily. 03/17/2024 Active Start: 03-17-2024 End: 05-28-2024 take 1 tablet by mouth once daily Digoxin 125 mcg (0.125 mg) tablet Discontinued 125 MCG PO Daily April 08, 2024 12:00am May 28, 2024 10:54pm escitalopram 10 mg oral tablet (20 sources) Serotonin Reuptake Inhibitor Start: 12-03-2023 End: 01-19-2024 take 1 tablet by mouth once daily at bedtime Escitalopram Oxalate 10 mg tablet Discontinued 0 .ROUTE .COMPLEX 90 December 03, 2023 6:37pm January 19, 2024 1:20am TAKE 1 TABLET BY MOUTH EVERYDAY AT BEDTIME Start: 12-14-2020 End: 06-05-2024 take 1 tablet by mouth once daily at bedtime Escitalopram Oxalate 10 mg tablet Discontinued 10 MG PO Bedtime January 19, 2024 12:00am April 21, 2024 5:45pm TAKE 1 TABLET BY MOUTH EVERYDAY AT BEDTIME Ginkgo-Choline Bitartrate (Brainstrong Memory Support) 120 mg- 110 mg Tablet (20 sources) Start: 02-26-2023 End: 11-24-2023 take 1 tablet by mouth once daily in the morning Ginkgo-Choline Bitartrate (Brainstrong Memory Support) 120 mg- 110 mg Tablet Discontinued 1 TAB PO Every morning February 25, 2023 11:00pm November 24, 2023 9:07am Start: 02-26-2023 End: 11-24-2023 take 1 tablet [...] Thiazide Diuretic Start: 2020 End: 2020 take 1 tablet by mouth once daily Hydrochlorothiazide 12.5 mg Tablet Discontinued 12.5 MG PO Daily at 0800 30 30 December 16, 2020 12:00am March 15, 2021 5:53pm hyoscyamine sulfate 0.125 mg sublingual tablet (20 sources) Start: 2021 take 1 tablet under the tongue before mealtime Hyoscyamine Sulfate 0.125 MG Sublingual Tablet Sublingual DISSOLVE 1 TABLET UNDER TONGUE BEFORE MEAL Quantity: 50 Refills: 0 Ordered: 05-Apr-2022 DO Start : 09-Jan-2022 Complete iohexol (OMNIPaque) 350 mg iodine/mL solution 75 mL (1 source) Start: 05-01-2025 End: 05-01-2025 75 mL, intravenous, Once in imaging, Starting on Sun05/01/25 at 1537, For 1 dose 24 hr isosorbide mononitrate 30 mg extended release oral tablet (11 sources) Nitrate Vasodilator Start: 07-23-2024 End: 09-10-2024 take 1 tablet by mouth once daily in the morning, then take 1 tablet by mouth every twenty-four hours Isosorbide Mononitrate 30 mg Tablet Extended Release 24 Hr Discontinued 30 MG PO Every morning July 23, 2024 1:00am September 10, 2024 2:37pm lisinopril 5 mg oral tablet (20 sources) Angiotensin Converting Enzyme Inhibitor Start: 04-21-2021 End: 07-03-2021 take 1 tablet by mouth twice daily Lisinopril 5 mg tablet Discontinued 5 MG PO Twice daily April 21, 2021 4:38pm July 03, 2021 3:41pm Start: 04-11-2021 End: 04-21-2021 take 1 tablet by mouth once daily Lisinopril 5 mg Tablet Discontinued 5 MG PO Daily 60 April 11, 2021 9:48am April 21, 2021 4:38pm Start: 12-16-2020 End: 04-11-2021 take 2 tablets by mouth once daily Lisinopril 5 mg Tablet Discontinued 10 MG PO Daily 60 December 16, 2020 12:00am April 11, 2021 9:53am Start: 12-16-2020 End: 04-11-2021 take 10 mg by mouth once daily Lisinopril Discontinued 10 MG PO Daily 60 December 16, 2020 12:00am April 11, 2021 9:53am Multi Vitamin TABS (20 sources) Multi Vitamin TA BS TAKE 1 TABLET DAILY. Quantity: 0 Refills: 0 Ordered: 10-Mar-2022 DO Active Multi Vitamin TA BS TAKE 1 TABLET DAILY. Quantity: 0 Refills: 0 Ordered: 06-Jun-2021 DO Active Multivitamin Tablet (13 sources) Start: 04-21-2021 End: 11-24-2023 take 1 tablet by mouth once daily in the morning Multivitamin Tablet Discontinued 1 TAB PO Every morning April 21, 2021 12:00am November 24, 2023 10:07am Start: 04-21-2021 End: 11-24-2023 take 1 tablet by mouth once daily in the morning Multivitamin Tablet Discontinued 1 TAB PO Every morning April 20, 2021 11:00pm November 24, 2023 9:07am 1 ml naloxone hydrochloride 0.4 mg/ml injection (1 source) Opioid Antagonist Start: 12-08-2024 0.4 mg, Intravenous Push, PRN, Starting on Sun12/08/24 at 1002, Until Discontinued, Respiratory Rate Less Than 8 for adults and less than 12 for Peds or for suspected overdose, PACU Now ofloxacin 3 mg/ml ophthalmic solution (4 sources) [...] Ordered: 17-Feb-2022 DO Start : 17-Feb-2022 Complete 1000 ml sodium chloride 9 mg/ml injection (3 sources) Start: 12-08-2024 Intravenous, at 75 mL/hr, CONTINUOUS, Starting on Sun12/08/24 at 1030, Until Discontinued Start: 12-08-2024 3 mL, Intraven ous Push, PRN, Starting on Sun12/08/24 at 1002, Until Discontinued, For medication administration and blood draw, PACU Now Start: 05-29-2024 take 1 mL intravenou sly every hour at 75 mL/hr, Intravenous, CONTINUOUS, Starting on Tracie 05/29/24 at 1230, Until Discontinued sotalol hydrochloride 80 mg oral tablet (20 sources) Antiarrhythmic Start: 04-08-2024 End: 05-08-2024 take 2 tablets by mouth twice daily Sotalol 80 mg tablet Discontinued 160 MG PO Twice daily April 08, 2024 4:27pm May 08, 2024 12:05pm Start: 04-08-2024 End: 05-08-2024 take 160 mg by mouth twice daily Sotalol Discontinued 160 MG PO Twice daily April 08, 2024 4:27pm May 08, 2024 12:05pm Start: 03-27-2024 End: 09-23-2024 take 1 tablet by mouth twice daily sotalol (Betapace) 160 mg tablet Indications: Atrial flutter (Multi) Take 1 tablet (160 mg) by mouth 2 times a day. 60 tablet 5 03/27/2024 04/28/2024 Discontinued (Med List Cleanup) Start: 02-25-2024 End: 02-24-2025 take 1.5 tablets by mouth every twelve hours sotalol (Betapace) 80 mg tablet Indications: Persistent atrial fibrillation (Multi) , High risk medication use Take 1.5 tablets (120 mg) by mouth every 12 hours. 270 tablet 3 02/25/2024 02/24/2025 Active Start: 01-20-2024 End: 04-01-2024 take 1 tablet by mouth twice daily Sotalol (Sotalol Af) 120 mg Tablet Discontinued 120 MG PO Twice daily 60 January 20, 2024 12:00am April 01, 2024 8:23am Start: 01-10-2024 take 1 tablet by nghia th in the morning sotalol (Betapace) 80 MG tablet Take 80 mg by mouth in the morning and 80 mg before bedtime. 01/10/2024 Active Start: 09-25-2022 take 1 tablet by nghia th every twelve hours Sotalol HCl 80 MG 1 tablet Orally every 12 hrs Sep, Active Start: 09-21-2022 End: 04-08-2024 take 1 tablet by mouth twice daily Sotalol 80 mg tablet Discontinued 80 MG PO Twice daily April 01, 2024 8:22am April 08, 2024 4:28pm End: 02-28-2024 take 1 tablet by mouth once daily sotalol (Betapace) 120 mg tablet Take 1 tablet (120 mg) by mouth once daily. 02/28/2024 Discontinued (Med List Cleanup) spironolactone 25 mg oral tablet (20 sources) Aldosterone Antagonist Start: 09-06-2022 Spironolactone 25 MG Oral Tablet Quantity: 15 Refills: 0 Ordered: 06-Sep-2022 DO Start : 06-Sep-2022 Complete Start: 09-06-2022 End: 11-20-2022 Spironolactone 25 mg Tablet Discontinued 12.5 MG PO Daily September 06, 2022 1:00am November 20, 2022 8:18am Start: 09-06-2022 End: 11-20-2022 take 12.5 mg by mouth once daily Spironolactone Discontinued 12.5 MG PO Daily September 06, 2022 1:00am November 20, 2022 8:18am triamcinolone acetonide 5 mg/ml topical cream (20 sources) Corticosteroid Start: 05-01-2022 Triamcinolone Acetonide 0.5 % External Cream APPLY TO AFFECTED AREA TWICE A DAY Quantity: 45 Refills: 0 Ordered: 01-May-2022 DO Start : 01-May-2022 Complete Vit A-Vit J-Wfvyps-Jaxi-Copper (Dtsr-Rugx-Kicb(Vit A,C-Biotin)) 2,500 unit-100 mg-2,500 mcg capsule (20 sources) Start: 01-18-2024 End: 05-08-2024 take 1 capsule by mouth once daily Vit A-Vit A-Zucumm-Jpga-Copper (Pmhe-Fyjm-Oavc(Vit A,C-Biotin)) 2,500 unit-100 mg-2,500 mcg capsule Discontinued 1 CAP PO Daily January 17, 2024 11:00pm May 08, 2024 11:06am Start: 01-18-2024 End: 05-08-2024 take 1 capsule by mouth once daily Vit A-Vit E-Jujtau-Biwa-Copper (Cicg-Loac-Gtqg(Vit A,C-Biotin)) 2,500 unit-100 mg-2,500 mcg capsule Discontinued 1 CAP PO Daily January 18, 2024 12:00am May 08, 2024 12:06pm Start: 01-18-2024 take 1 capsule by [facility] once daily Vit A-Vit D-Vxftlx-Yekm-Copper (Xhfm-Ajzt-Nsvv(Vit A,C-Biotin)) 2,500 unit-100 mg-2,500 mcg capsule Active 1 CAP PO Daily January 18, 2024 12:00am Problems Active Problems Problem Classification Problem Date Documented Date Episodic/Chronic Acquired foot deformities (5 sources) Acquired hallux rigidus; Translations: [Hallux rigidus, unspecified foot] Onset: 3 02-19-2023 Chronic Acquired foot deformities (3 sources) Acquired deformity of toe of left foot; Translations: [Acquired deformities of toe(s), unspecified, left foot] 02-12-2025 Episodic Acquired foot deformities (3 sources) Acquired deformity of toe of right foot; Translations: [Acquired deformities of toe(s), unspecified, right foot] 02-12-2025 Episodic Acute myocardial infarction (12 sources) Acute non-ST segment elevation myocardial infarction; Translations: [Myocardial infarction] Onset: Chronic Cardiac dysrhythmias (20 sources) Persistent atrial fibrillation; Translations: [Atrial fibrillation] Onset: 6 06-23-2021 Chronic Comment on above: Problem List clean-u p per request of Phys. EHR Cmte PFT: FEV1/FVC 71, TL V 93%, DLCO 59% - 09/2024 Echo: LVEF 55%, VALERIE, normal RV size/function, RVSP 21 - 01/2024,PFT: FEV1/FVC 71, TLV 93%, DLCO 59% - 09/2024 Chronic kidney disease (20 sources) Chronic kidney disease stage 3A ; Translations: [Chronic kidney disease, Stage III (moderate)] Onset: 3 05-31-2023 Chronic Chronic kidney disease (5 sources) Chronic kidney disease; Translations: [Chronic kidney disease, stage 3b] Onset: 3 Chronic ulcer of skin (1 source) Non-pressure chronic ulcer of other part of left foot with fat layer exposed; Translations: [Ulcer of other part of foot] 04-30-2025 Chronic Conduction disorders (20 sources) Cardiac pacemaker in situ; Translations: [Cardiac pacemaker in situ] Onset: 3 06-29-2021 Chronic Comment on above: Problem List clean-u p per request of Phys. EHR Cmte Congestive heart failure; nonhypertensive (20 sources) Diastolic heart failure; Translations: [Diastolic heart failure, unspecified] Onset: 2 07-01-2021 Chronic Comment on above: Echo: LVEF 55%, VALERIE, RVSP 21, normal RV size/function - 01/2024 Problem List clean-u p per request of Phys. EHR Cmte Coronary atherosclerosis and other heart disease (20 sources) Single coronary vessel disease; Translations: [Coronary atherosclerosis of unspecified type of vessel, yuhaaviatam or graft] Onset: 3 04-28-2023 Chronic Comment on above: LHC: LAD 40-50%, alyson gonal 70%, RCA 40-50% - 03/2024 LHC: LAD 40-50%, alyson gonal 70%, RCA 40-50% - 03/2024,Echo: LVEF 55%, VALERIE, normal RV size/function, RVSP 21 - 01/2024 Deficiency and other anemia (20 sources) Iron deficiency anemia; Translations: [Iron deficiency anemia, unspecified] Onset: 7 Resolved: 1 12-16-2020 Episodic Comment on above: Problem List clean-u p per request of Phys. EHR Cmte Disorders of lipid metabolism (20 sources) Hyperlipidemia; Translations: [Other and unspecified hyperlipidemia] Onset: 3 06-23-2021 Chronic Comment on above: Problem List clean-u p per request of Phys. EHR Cmte Esophageal disorders (20 sources) Esophageal obstruction; Translations: [Esophagogastric junction outflow obstruction] Onset: 2 Resolved: 2 Chronic Essential hypertension (20 sources) Benign essential hypertension; Translations: [Benign essential hypertension] Onset: 5 12-15-2020 Chronic Comment on above: Problem List clean-u p per request of Phys. EHR Cmte Gastrointestinal hemorrhage (6 sources) Rectal hemorrhage; Translations: [Hemorrhage of anus and rectum] 09-09-2024 Episodic Genitourinary symptoms and ill-defined conditions (20 sources) Urinary incontinence; Translations: [Unspecified urinary incontinence] Onset: 6 11-24-2023 Chronic Genitourinary symptoms and ill-defined conditions (20 sources) Asymptomatic bacteriuria; Translations: [Bacteriuria] 12-16-2020 Episodic Comment on above: Problem List clean-u p per request of Phys. EHR Cmte Hypertension with complications and secondary hypertension (5 sources) Hypertensive chronic kidney disease with stage 1 through stage 4 chronic kidney disease, or unspecified chronic kidney disease; Translations: [Malignant hypertensive chronic kidney disease] Onset: 2 Chronic Immunizations and screening for infectious disease (1 source) Vaccination given; Translations: [Encounter for immunization] Episodic Malaise and fatigue (20 sources) Asthenia; Translations: [Weakness] Onset: 4 04-21-2021 Episodic Comment on above: Problem List clean-u p per request of Phys. EHR Cmte Menopausal disorders (1 source) Primary ovarian failure; Translations: [Other primary ovarian failure] Onset: 7 Chronic Mood disorders (20 sources) Recurrent major depression; Translations: [Major depressive disorder, recurrent] Onset: 5 Chronic Mycoses (3 sources) Pain in toe; Translations: [Tinea unguium] 02-12-2025 Episodic Nutritional deficiencies (1 source) Vitamin D deficiency; Translations: [Vitamin D deficiency, unspecified] Onset: 7 Chronic Osteoarthritis (20 sources) Arthritis of left knee; Translations: [Unilateral primary osteoarthritis, left knee] Onset: 5 Chronic Osteoporosis (1 source) Primary osteoporosis; Translations: [Age-related osteoporosis without current pathological fracture] Chronic Other aftercare (1 source) Long-term current use of drug therapy; Translations: [Other terminologist (current) drug therapy] Episodic Other aftercare (1 source) High risk drug monitoring status; Translations: [terminal make up operator (current) use of opiate analgesic] Episodic Other and ill-defined heart disease (20 sources) Left ventricular systolic dysfunction; Translations: [Other ill-defined heart diseases] 09-03-2022 Chronic Comment on above: Problem List clean-u p per request of Phys. EHR Cmte Other and ill-defined heart disease (12 sources) [...] Episodic Other bone disease and musculoskeletal deformities (20 sources) Osteopenia; Translations: [Other specified disorders of bone density and structure, other site] 11-24-2023 Episodic Other circulatory disease (20 sources) Low blood pressure; Translations: [Hypotension, unspecified] 06-27-2021 Episodic Comment on above: Problem List clean-u p per request of Phys. EHR Cmte Other congenital anomalies (5 sources) Porokeratosis; Translations: [Other specified congenital malformations of skin] Onset: 3 02-19-2023 Chronic Other connective tissue disease (20 sources) Fibromyalgia; Translations: [Fibromyalgia] 11-24-2023 Episodic Other diseases of kidney and ureters (13 sources) Hydronephrosis; Translations: [Hydronephrosis with renal and ureteral calculous obstruction] 06-28-2021 Episodic Other diseases of kidney and ureters (20 sources) Hydronephrosis with renal and ureteral calculous obstruction; Translations: [Hydronephrosis with urinary obstruction due to ureteral calculus] 06-28-2021 Episodic Comment on above: Problem List clean-u p per request of Phys. EHR Cmte Other diseases of kidney and ureters (1 source) Hydronephrosis with renal and ureteral calculous obstruction; Translations: [Hydronephrosis with renal and ureteral calculous obstruction] Episodic Other diseases of veins and lymphatics (15 sources) Venous insufficiency of leg; Translations: [Venous insufficiency (chronic) (peripheral)] 05-08-2024 Episodic Other diseases of veins and lymphatics (6 sources) Venous insufficiency (chronic) (peripheral); Translations: [Venous (peripheral) insufficiency, unspecified] 05-08-2024 Episodic Other gastrointestinal disorders (6 sources) Intestinal malabsorption; Translations: [Other specified intestinal malabsorption] Onset: 5 02-22-2023 Chronic Other gastrointestinal disorders (20 sources) Dysphagia; Translations: [Dysphagia, unspecified] Onset: 5 12-05-2021 Episodic Comment on above: Problem List clean-u p per request of Phys. EHR Cmte Other gastrointestinal disorders (19 sources) History of stricture of esophagus; Translations: [Personal history of other diseases of the digestive system] Episodic Other gastrointestinal disorders (20 sources) Pharyngeal dysphagia; Translations: [Dysphagia, pharyngoesophageal phase] Episodic Other gastrointestinal disorders (13 sources) Personal history of other diseases of the digestive system; Translations: [Personal history of other diseases of digestive system] Onset: 5 01-28-2024 Episodic Other gastrointestinal disorders (7 sources) Esophageal dysphagia; Translations: [Other dysphagia] 05-15-2024 Episodic Other hereditary and degenerative nervous system [...] injury of head, initial encounter] 07-11-2021 Episodic Comment on above: Problem List clean-u p per request of Phys. EHR Cmte Other injuries and conditions due to external causes (20 sources) Abrasion; Translations: [Other injury of unspecified body region, initial encounter] 07-11-2021 Episodic Comment on above: Problem List clean-u p per request of Phys. EHR Cmte Other injuries and conditions due to external causes (1 source) History of fall; Translations: [History of falling] Episodic Other liver diseases (20 sources) Unspecified cirrhosis of liver; Translations: [Cirrhotic] Onset: 2 Resolved: 2 Chronic Other liver diseases (20 sources) Cirrhosis of liver; Translations: [Unspecified cirrhosis of liver] 11-24-2023 Chronic Other lower respiratory disease (20 sources) Dyspnea on exertion; Translations: [Other forms of dyspnea] 09-01-2022 Episodic Comment on above: Problem List clean-u p per request of Phys. EHR Cmte Other lower respiratory disease (13 sources) Other forms of dyspnea; Translations: [Other respiratory abnormalities] 09-01-2022 Episodic Other lower respiratory disease (20 sources) Nodule of lung; Translations: [Solitary pulmonary nodule] 11-24-2023 Episodic Comment on above: CT: no nodules detec 10/2022 CT: no nodules detec 10/2022,PFT: FEV1/FVC 71, TLV 93%, DLCO 59% - 09/2024 CT: no nodules detec 10/2022, Other lower respiratory disease (2 sources) Solitary pulmonary nodule Episodic Other lower respiratory disease (1 source) Solitary nodule of lung; Translations: [Solitary pulmonary nodule] Episodic Other nervous system disorders (1 source) [...] Episodic Other nutritional; endocrine; and metabolic disorders (1 source) Obesity caused by energy imbalance; Translations: [Other obesity due to excess calories] 05-31-2023 Chronic Other nutritional; endocrine; and metabolic disorders (15 sources) Body mass index 30+ - obesity; Translations: [Body mass index (BMI) 30.0-30.9, adult] Onset: 4 02-25-2024 Chronic Pleurisy; pneumothorax; pulmonary collapse (6 sources) Pleural effusion; Translations: [Pleural effusion, not elsewhere classified] 09-12-2024 Episodic Residual codes; unclassified (20 sources) Obstructive sleep apnea syndrome; Translations: [Obstructive sleep apnea (adult) (pediatric)] Onset: 6 11-24-2023 Chronic Residual codes; unclassified (19 sources) Obstructive sleep apnea (adult) (pediatric); Translations: [Obstructive sleep apnea (adult)(pediatric)] Chronic Residual codes; unclassified (1 source) Hypersomnia; Translations: [Hypersomnia, unspecified] Chronic Residual codes; unclassified (1 source) Family history of malignant neoplasm of other organs or systems; Translations: [FAM HX MALIG NEOPLASM OTH ORGN/SYS] Onset: 3 Episodic Residual codes; unclassified (1 source) Asymptomatic menopausal state Episodic Residual codes; unclassified (2 sources) Never smoked tobacco; Translations: [Other specified health status] 02-28-2024 Episodic Residual codes; unclassified (5 sources) History of hernia repair; Translations: [Other specified postprocedural states] Onset: 5 12-30-2024 Episodic Residual codes; unclassified (1 source) Other specified postprocedural states; Translations: [Other specified postprocedural states] Onset: 5 Episodic Respiratory failure; insufficiency; arrest (adult) (2 sources) Acute respiratory failure; Translations: [Acute respiratory failure with hypoxia] 01-23-2025 Episodic Skin and subcutaneous tissue infections (5 sources) Cellulitis of leg, excluding foot; Translations: [Cellulitis of left lower limb] 01-21-2025 Episodic Spondylosis; intervertebral disc disorders; other back problems (20 sources) Lumbar spondylosis; Translations: [Spondylosis without myelopathy or radiculopathy, lumbar region] Onset: 9 11-24-2023 Chronic Syncope (20 sources) Syncope; Translations: [Syncope and collapse] 09-17-2022 Episodic Comment on above: Problem List clean-u p per request of Phys. 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 Unclassified (20 sources) Never smoked tobacco; Translations: [Never a smoker] 10-23-2024 Unclassified (9 sources) Other persistent atrial fibrillation; Translations: [Other persistent atrial fibrillation] Onset: 3 Unclassified (3 sources) CONTACT W/AND (SUSP) EXPOS COVID-19; Translations: [CONTACT W/AND (SUSP) EXPOS COVID-19] Onset: 2 Unclassified (1 source) Elevation of levels of liver transaminase levels; Translations: [Elevation of levels of liver transaminase levels] Unclassified (2 sources) Never smoked any substance 06-05-2024 Unclassified (2 sources) Drug therapy finding 07-28-2024 Unclassified (3 sources) NO SHOW 07-29-2024 Unclassified (1 source) A [facility] screening has identified you as FRAIL or AT RISK FOR FRAILTY. This puts you at a higher risk for infection, illness, falls, and other injuries. Here are four ways to help you reduce your risk of frailty: 1. IDENTIFY EARLY SIGNS OF FRAILTY Discuss contributing factors and concerns with your doctor 2. BE ACTIVE Walking and light strengthening exercises will help reduce weakness 3. EAT WELL Aim for three healthy meals a day that are high in protein 4. THINK POSITIVE Keep your mind active by being sociable and continuing to learn References: Stay Strong: Four Ways to Beat the Frailty Risk [email or web address]/health/[facility] t-ygp-uxfnyuvqth/stay-s udsxz-wlcu-bqvh-to-beat -the-fra ilty-risk 01-23-2025 Unclassified (1 source) Autogenerated Problem Onset: 5 04-08-2025 Urinary tract infections (20 sources) Escherichia coli urinary tract infection; Translations: [Urinary tract infection, site not specified] Resolved: 1 06-29-2021 Episodic Comment on above: Problem List clean-u p per request of Phys. EHR Cmte Viral infection (20 sources) Disease caused by 2019-nCoV; Translations: [COVID-19] 06-27-2020 Episodic Comment on above: Problem List clean-u p per request of Phys. EHR Cmte Past or Other Problems Problem Classification Problem Date Documented Da te Episodic/Chronic Abdominal hernia (20 sources) Diaphragmatic hernia without obstruction or gangrene; Translations: [Paraesophageal hernia] Onset: 02-28-2022 Resolved: 02-28-2022 Episodic Abdominal pain (20 sources) Right upper quadrant pain; Translations: [Right upper quadrant pain] Onset: 05-20-2015 Resolved: 11-15-2021 06-27-2021 Episodic Comment on above: Problem List clean-u p per request of Phys. EHR Cmte Acute and unspecified renal failure (20 sources) Injury of kidney; Translations: [Acute kidney failure, unspecified] Onset: 07-21-2024 04-21-2021 Episodic Comment on above: Problem List clean-u p per request of Phys. EHR Cmte Allergic reactions (2 sources) Contact dermatitis; Translations: [Contact dermatitis and other eczema, due to unspecified cause] Onset: 02-16-2015 Resolved: 2020 Episodic Biliary tract disease (20 sources) Biliary calculus; Translations: [Calculus of gallbladder without cholecystitis without obstruction] Onset: 01-28-2022 Resolved: 02-07-2022 06-27-2021 Episodic Comment on above: Problem List clean-u p per request of Phys. EHR Cmte Cardiac dysrhythmias (20 sources) Sinus bradycardia; Translations: [Other specified cardiac dysrhythmias] Onset: 10-12-2016 06-23-2021 Episodic Comment on above: Problem List clean-u p per request of Phys. EHR Cmte Deficiency and other anemia (5 sources) Anemia; Translations: [Anemia, unspecified] Onset: 09-26-2012 02-22-2023 Episodic E Codes: Adverse effects of medical drugs (1 source) Anticoagulant adverse reaction; Translations: [Adverse effect of anticoagulants, initial encounter] Resolved: 2020 Episodic E Codes: Natural/environment (1 source) Nonvenomous insect bite; Translations: [Bitten or stung by nonvenomous insect and other nonvenomous arthropods, initial encounter] Resolved: 04-04-2022 Episodic Nausea and vomiting (20 sources) Vomiting; Translations: [Vomiting, unspecified] Onset: 05-20-2015 Resolved: 04-27-2022 06-27-2021 Episodic Comment on above: Problem List clean-u p per request of Phys. EHR Cmte Nonspecific chest pain (20 sources) Chest pain; Translations: [Chest pain, unspecified] Onset: 07-14-2014 04-21-2021 Episodic Comment on above: Problem List clean-u p per request of Phys. EHR Cmte Nutritional deficiencies (5 sources) Iron deficiency; Translations: [Iron deficiency] Onset: 09-26-2012 02-22-2023 Episodic Other aftercare (20 sources) Drug therapy finding; Translations: [Long-term (current) use of anticoagulants] Onset: 04-28-2023 06-23-2021 Episodic Comment on above: Problem List clean-u p per request of Phys. 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; Translations: [Long-term (current) use of anticoagulants] Onset: 04-28-2023 09-21-2022 Episodic Other aftercare (11 sources) Other halfway (current) drug therapy; Translations: [Long-term (current) use of other medications] Onset: 04-28-2023 Episodic Other aftercare (20 sources) Taking high risk medication; Translations: [Other terminologist (current) drug therapy] Onset: 04-28-2023 04-28-2023 Episodic Other aftercare (2 sources) Patient encounter status; Translations: [Encounter for therapeutic drug level monitoring] 02-28-2024 Episodic Other circulatory disease (1 source) H/O: [...] vagina] Resolved: 2020 Episodic Other gastrointestinal disorders (19 sources) Dysphagia, unspecified; Translations: [Dysphagia, unspecified] Onset: 02-28-2022 Resolved: 02-28-2022 Episodic Other gastrointestinal disorders (1 source) Digestive symptom; Translations: [Other symptoms involving digestive system] Onset: 06-03-2015 Episodic Other gastrointestinal disorders (1 source) Constipation; Translations: [Constipation, unspecified] Onset: 03-04-2019 Episodic Other gastrointestinal disorders (1 source) Other dysphagia; Translations: [Other dysphagia] Onset: 06-26-2024 Episodic Other hematologic conditions (5 sources) H/O: anemia - iron deficient; Translations: [Personal history of diseases of the blood and blood-forming organs and certain disorders involving the immune mechanism] Onset: 08-18-2015 02-22-2023 Episodic Other lower respiratory disease (20 sources) Dyspnea; Translations: [Other respiratory abnormalities] Onset: 07-14-2014 Resolved: 02-25-2024 05-31-2023 Episodic Other lower respiratory disease (3 sources) Shortness of breath; Translations: [Shortness of breath] Onset: 05-31-2023 Episodic Other lower respiratory disease (1 source) Pleurodynia; Translations: [Pleurodynia] Onset: 09-12-2024 Episodic Other lower respiratory disease (1 source) Dyspnea, unspecified; Translations: [Dyspnea, unspecified] Onset: 09-11-2024 Episodic Other nervous system disorders (1 source) Chronic pain syndrome; Translations: [Chronic pain syndrome] Resolved: 10-17-2020 Chronic Other nervous system disorders (1 source) Abnormal involuntary movement; Translations: [Abnormal involuntary movements] Onset: 08-10-2016 Episodic Other nervous system disorders (5 sources) Acute postoperative pain; Translations: [Other acute postprocedural pain] Onset: 08-18-2015 02-22-2023 Episodic Other non-traumatic joint disorders (1 source) Joint pain; Translations: [Pain in unspecified joint] Onset: 03-05-2015 Episodic Other nutritional; endocrine; and metabolic disorders (20 sources) Obesity; Translations: [Obesity, unspecified] Onset: 04-28-2023 Resolved: 02-25-2024 04-28-2023 Chronic Other nutritional; endocrine; and metabolic disorders (11 sources) Body mass index 25-29 - overweight; Translations: [Body Mass Index 26.0-26.9, adult] Onset: 01-18-2016 Episodic Other nutritional; endocrine; and metabolic disorders (10 sources) Overweight; Translations: [Overweight] Onset: 01-18-2016 Episodic Other nutritional; endocrine; and metabolic disorders (20 sources) Overweight in adulthood with body mass index of 25 or more but less than 30; Translations: [Overweight] Onset: 04-24-2024 06-05-2024 Episodic Other nutritional; endocrine; and metabolic disorders (2 sources) Body mass index (BMI) 27.0-27.9, adult; Translations: [Body mass index (BMI) 27.0-27.9, adult] Onset: 10-23-2024 Episodic Other nutritional; endocrine; and metabolic disorders (2 sources) Body mass index (BMI) 28.0-28.9, adult; Translations: [Body mass index (BMI) 28.0-28.9, adult] Onset: 04-24-2024 Episodic Other screening for suspected conditions (not mental disorders or infectious disease) (20 sources) CT of abdomen abnormal; Translations: [Abnormal findings on diagnostic imaging of other abdominal regions, including retroperitoneum] Onset: 01-23-2018 06-27-2021 Episodic Comment on above: Problem List clean-u p per request of Phys. EHR Cmte Residual codes; unclassified (8 sources) H/O: respiratory disease; Translations: [Personal history of other diseases of respiratory system] Resolved: 01-04-2023 Episodic Residual codes; unclassified (1 source) Requires influenza virus vaccination; Translations: [Need for prophylactic vaccination and inoculation, Influenza] Onset: 06-12-2018 Episodic Residual codes; unclassified (20 sources) Never smoked any substance; Translations: [Other specified health status] Onset: 04-28-2023 04-28-2023 Episodic Residual codes; unclassified (5 sources) Subacute delirium; Translations: [Disorientation, unspecified] Onset: 08-24-2015 02-22-2023 Episodic Residual codes; unclassified (5 sources) Device in situ; Translations: [Other specified health status] Onset: 08-18-2015 02-22-2023 Episodic Residual codes; unclassified (2 sources) Other specified health status; Translations: [Other specified health status] Onset: 04-28-2023 Episodic Spondylosis; intervertebral disc disorders; other back problems (2 sources) Low back pain; Translations: [Low back pain, unspecified] Onset: 09-13-2018 Episodic Superficial injury; contusion (20 sources) Contusion of chest; Translations: [Contusion of unspecified front wall of thorax, initial encounter] Onset: 09-11-2024 08-27-2024 Episodic Unclassified (19 sources) Elevated transaminase level; Translations: [Elevated transaminase level] Unclassified (1 source) CONTACT W/AND (SUSP) EXPOS COVID-19; Translations: [CONTACT W/AND (SUSP) EXPOS COVID-19] Onset: 04-20-2022 Unclassified (18 sources) Onset: 05-31-2023 Resolved: 09-05-2024 05-31-2023 Viral infection (1 source) Disease caused by 2019-nCoV; Translations: [COVID-19] Resolved: 2020 Results Test Name Value Interpretation Reference Range Facility Creatinine [Mass/Vol]on 04-20 Interpretation and review of laboratory results Abnormal [facility] POCT eGFR 35 Low - PINF [facility] Comment on above: Calculations of fide mated GFR are performed using the 2020 CKD-EPI Study Refit equation without the race variable for the IDMS-Traceable Creatinine Methods. https://jasn.asnjournals.org/content//ASN.053771 9685 [facility] POCT CREATININE AND GFRon Creatinine [Mass/Vol] 1.50 mg/dL High 0.60 - 1.30 mg/dL [facility] Comment on above: Hydroxyurea can caus e significant interference with creatinine measurement using the i-STAT device. An alternate method of creatinine measurement must be used in patients treated with hydroxyurea. Basic metabolic 2000 panelon 04-28-2025 Anion gap [Moles/Vol] 12 mmol/L Normal 10-20 [facility] Comment on above: Performed By: #### 2 4321-2 #### ANAIBELIRANDALL KENT ([id number]) [facility] ([facility]) [address] [place] [address] Calcium [Mass/Vol] 9.1 mg/dL Normal 8.6-10.3 [facility] Ambulatory Comment on above: Performed By: #### 2 4321-2 #### ANAIBELIRANDALL THAIMARIA DEL ROSARIO PULIDO ([id number]) [facility] ([facility]) [address] [place] [address] Chloride [Moles/Vol] 102 mmol/L Normal 98-107 [facility] Ambulatory Comment on above: Performed By: #### 2 4321-2 #### JUANIBELIRANDALL THAI TESS ([id number]) [facility] ([facility]) [address] [place] [address] CO2 [Moles/Vol] 29 mmol/L Normal 21-32 [facility] Ambulatory Comment on above: Performed By: #### 2 4321-2 #### ANAIBELIRANDALL THAI TESS ([id number]) [facility] ([facility]) [address] [place] [address] Creatinine [Mass/Vol] 1.62 mg/dL High 0.50-1.05 [facility] Ambulatory Comment on above: Performed By: #### 2 4321-2 #### ALEK KENT ([id number]) [facility] ([facility]) [address] [place] [address] Glomerular filtration rate 32 mL/min/1.73m*2 Low >60 [facility] Ambulatory Comment on above: Result Comment: Calc ulations of estimated GFR are performed using the 2020 CKD-EPI Study Refit equation without the race variable for the IDMS-Traceable creatinine methods. https://jasn.asnjournals.org/content/early//ASN.179284 7185 Performed By: #### 2 4321-2 #### ALEK KENT ([id number]) [facility] ([facility]) [address] [place] [address] 58671 Glucose [Mass/Vol] 104 mg/dL High 74-99 [facility] Ambulatory Comment on above: Performed By: #### 2 4321-2 #### ALEK KENT ([id number]) [facility] ([facility]) [address] [place] [address] 31770 Potassium [Moles/Vol] 4.1 mmol/L Normal 3.5-5.3 [facility] Ambulatory Comment on above: Performed By: #### 2 4321-2 #### ALEK KENT ([id number]) [facility] ([facility]) [address] [place] [address] 77101 Sodium [Moles/Vol] 139 mmol/L Normal 136-145 [facility] Comment on above: Performed By: #### 2 4321-2 #### ALEK KENT ([id number]) [facility] ([facility]) [address] [place] [address] 88884 Urea nitrogen [Mass/Vol] 38 mg/dL High 6-23 [facility] Comment on above: Performed By: #### 2 4321-2 #### ALEK KENT ([id number]) [facility] ([facility]) [address] [place] [address] 49422 CBC panel Auto (Bld)on 04-28 Erythrocyte distribution width (RBC) [Ratio] 13.8 % Normal 11.5-14.5 [facility] Comment on above: Performed By: #### 5 8410-2 #### ALEK KENT ([id number]) [facility] ([facility]) [address] [place] [address] 52772 Hematocrit (Bld) [Volume fraction] 43.7 % Normal 36.0-46.0 [facility] Comment on above: Performed By: #### 5 8410-2 #### ALEK KENT ([id number]) [facility] ([facility]) [address] [place] [address] 27321 Hemoglobin (Bld) [Mass/Vol] 13.5 g/dL Normal 12.0-16.0 [facility] Comment on above: Performed By: #### 5 8410-2 #### ALEK KENT ([id number]) [facility] ([facility]) [address] [place] [address] 85773 MCH (RBC) [Entitic mass] 29.5 pg Normal 26.0-34.0 [facility] Comment on above: Performed By: #### 5 8410-2 #### ALEK KENT ([id number]) [facility] ([facility]) [address] [place] [address] 27073 MCHC (RBC) [Mass/Vol] 30.9 g/dL Low 32.0-36.0 [facility] Ambulatory Comment on above: Performed By: #### 5 8410-2 #### ALEK KENT ([id number]) [facility] ([facility]) [address] [place] [address] 66780 MCV (RBC) [Entitic vol] 95 fL Normal 80-100 [facility] Comment on above: Performed By: #### 5 8410-2 #### ALEK KENT ([id number]) [facility] ([facility]) [address] [place] [address] 12070 Nucleated RBC/100 WBC (Bld) [Ratio] 0.0 /100 WBCs Normal 0.0-0.0 [facility] Comment on above: Performed By: #### 5 8410-2 #### ALEK KENT ([id number]) [facility] ([facility]) [address] [place] [address] 09483 Platelets (Bld) [#/Vol] 244 x10*3/uL Normal 150-450 [facility] Comment on above: Performed By: #### 5 8410-2 #### ALEK KENT ([id number]) [facility] ([facility]) [address] [place] [address] 69132 RBC (Bld) [#/Vol] 4.58 x10*6/uL Normal 4.00-5.20 [facility] Ambulatory Comment on above: Performed By: #### 5 8410-2 #### ALEK KENT ([id number]) [facility] ([facility]) [address] [place] [address] 95402 WBC (Bld) [#/Vol] 6.4 x10*3/uL Normal 4.4-11.3 [facility] Comment on above: Performed By: #### 5 8410-2 #### ALEK KENT ([id number]) [facility] ([facility]) [address] [place] [address] 68147 Coagulation tissue factor in ducedon 04-28-2025 PT Coag (PPP) [Time] 16.3 s High 9.8-12.4 [facility] Ambulatory Comment on above: Performed By: #### 5 902-2 #### ALEK KENT ([id number]) [facility] ([facility]) [address] [place] [address] 17834 Creatinineon 04-28-2025 Creatinine [Mass/Vol] 1.69 mg/dL High 0.50-1.05 [facility] Comment on above: Performed By: #### 2 160-0 #### ROXY ARORA ([id number]) [facility] ([facility] CITY) [address] [place] [address] Creatinine [Mass/Vol]on Glomerular filtration rate 30 mL/min/1.73m*2 Low >60 [facility] Comment on above: Result Comment: Calc ulations of estimated GFR are performed using the 2020 CKD-EPI Study Refit equation without the race variable for the IDMS-Traceable creatinine methods. https://jasn.asnjournals.org/content//ASN.432354 3170 Performed By: #### 2 160-0 #### ROXY ARORA ([id number]) [facility] ([facility]) [address] [place] [address] PT Coag (PPP) [Time]on 04-28 INR Coag (PPP) [Relative time] 1.5 High 0.9-1.1 [facility] Comment on above: Performed By: #### 5 902-2 #### ALEK KENT ([id number]) [facility] (C) [address] [place] [address] Cardiac Device Check - Remot davin 01-30-2025 [facility] Work Phone: Radiology Study observation (narrative) [facility] Work Phone: Alanine aminotransferase [En zymatic activity/volume] in Serum or PlasmaOrdered By: Ángel Minaya on 01-23-2025 ALT [Catalytic activity/Vol] Alanine aminotransferase [Enzymatic activity/volume] in Serum or Plasma 7-52 [facility] Albumin [Mass/volume] in Ser um or Plasma by Bromocresol green (BCG) dye binding methoOrdered By: Ángel Minaya on 01-23-2025 Albumin BCG dye [Mass/Vol] Albumin [Mass/volume] in Serum or Plasma by Bromocresol green (BCG) dye binding metho 3.5-5.7 [facility] Alkaline phosphatase [Enzyma tic activity/volume] in Serum or PlasmaOrdered By: Ángel Minaya on 01-23-2025 ALP [Catalytic activity/Vol] Alkaline phosphatase [Enzymatic activity/volume] in Serum or Plasma 34-104 [facility] Amphetamine Screen Ql (U)Ord ered By: Ángel Minaya on 01-23-2025 Amphetamines Ql (U) Amphetamines screen Negativ e [facility] Aspartate aminotransferase [ Enzymatic activity/volume] in Serum or PlasmaOrdered By: Ángel Minaya on 01-23-2025 AST [Catalytic activity/Vol] Aspartate aminotransferase [Enzymatic activity/volume] in Serum or Plasma 13-39 [facility] Barbiturates [Presence] in U rine by Screen methodOrdered By: Ángel Minaya on 01-23-2025 Barbiturates Screen Ql (U) Barbiturates [Presence] in Urine by Screen method Negative [facility] Basophils Auto (Bld) [#/Vol] Ordered By: Ángel Minaya on 01-23-2025 Basophils (Bld) [#/Vol] Automated basophil count 0.0-0.2 [facility] Basophils/100 WBC Auto (Bld) Ordered By: Ángel Minaya on 01-23-2025 Basophils/100 WBC (Bld) Automated basophil % . [facility] Benzodiazepines Screen Ql (U )Ordered By: Ángel Minaya on 01-23-2025 Benzodiazepines Ql (U) Benzodiazepines [Presence] in Urine by Screen method Negative [facility] Benzoylecgonine [Presence] i n Urine by Screen methodOrdered By: Ángel Minaya on 01-23-2025 Benzoylecgonine Screen Ql (U) Benzoylecgonine [Presence] in Urine by Screen method Negative [facility] Bilirubin.total [Mass/volume ] in Serum or PlasmaOrdered By: Ángel Minaya on 01-23-2025 Bilirubin [Mass/Vol] Bilirubin.total [Mass/volume] in Serum or Plasma 0.3-1.0 [facility] Calcium [Mass/volume] in Ser um or PlasmaOrdered By: Ángel Minaya on 01-23-2025 Calcium [Mass/Vol] Calcium [Mass/volume ] in Serum or Plasma 8.6-10.3 [facility] Cannabinoids [Presence] in U rine by Screen methodOrdered By: Ángel Minaya on 01-23-2025 Cannabinoids Screen Ql (U) Cannabinoids [Presence] in Urine by Screen method Negative [facility] Comment on above: These are unconfirme d results and should not be used for legal purposes. Drug Cut-Off Concentration: AMPH 1000 ng/mL RAMESH 200 ng/mL ANAI 200 ng/mL COCM 300 ng/mL OP 300 ng/mL PCP 25 ng/mL THC 20 ng/mL Carbon dioxide, total [Moles /volume] in Serum or PlasmaOrdered By: Ángel Minaya on 01-23-2025 CO2 [Moles/Vol] Carbon dioxide, tota l [Moles/volume] in Serum or Plasma 21.0-31.0 [facility] Chloride [Moles/volume] in S vaughn or PlasmaOrdered By: Ángel Minaya on 01-23-2025 Chloride [Moles/Vol] Chloride [Moles/vol ume] in Serum or Plasma 98-107 [facility] Complete Blood Count Auto Di ffon 01-23-2025 Basophils (Bld) [#/Vol] 0.1 10*3/uL Normal 0.0-0.2 [facility] Comment on above: Result Comment: PERF ORMED BY: [facility] [address] [place] [address] PATHOLOGIST [employer] REENA JIN M.D. Performed By: #### P HOS, MG, CMP, CBC ####[address] Basophils/100 WBC (Bld) 0.9 % Normal . [facility] Comment on above: Performed By: #### P HOS, MG, CMP, CBC ####[address] Eosinophils (Bld) [#/Vol] 0.2 10*3/uL Normal 0.0-0.45 [facility] Comment on above: Performed By: #### P HOS, MG, CMP, CBC ####[address] Eosinophils/100 WBC (Bld) 2.5 % Normal . [facility] Comment on above: Performed By: #### P HOS, MG, CMP, CBC ####[address] Erythrocyte distribution width (RBC) [Ratio] 13.9 % Normal 11.9-15.3 [facility] Comment on above: Performed By: #### P HOS, MG, CMP, CBC ####[address] Hematocrit (Bld) [Volume fraction] 36.5 % Normal 34.0-46.4 [facility] Comment on above: Performed By: #### P HOS, MG, CMP, CBC ####[address] Hemoglobin (Bld) [Mass/Vol] 12.4 g/dL Normal 11.8-15.4 [facility] Comment on above: Performed By: #### P HOS, MG, CMP, CBC ####[address] Lymphocytes (Bld) [#/Vol] 1.1 10*3/uL Normal 1.00-4.8 [facility] Comment on above: Performed By: #### P HOS, MG, CMP, CBC ####[address] Lymphocytes/100 WBC (Bld) 15.4 % Normal . [facility] Comment on above: Performed By: #### P HOS, MG, CMP, CBC ####[address] MCH (RBC) [Entitic mass] 30.5 pg Normal 24.7-34.3 [facility] Comment on above: Performed By: #### P HOS, MG, CMP, CBC ####[address] MCV (RBC) [Entitic vol] 89.8 fL Normal 80-100 [facility] Comment on above: Performed By: #### P HOS, MG, CMP, CBC ####[address] Mean Corpuscular HGB Conc 34.0 g/dL Normal 32.0-35.0 [facility] Comment on above: Performed By: #### P HOS, MG, CMP, CBC ####[address] Monocytes (Bld) [#/Vol] 0.5 10*3/uL Normal 0.0-0.8 [facility] Comment on above: Performed By: #### P HOS, MG, CMP, CBC ####[address] Monocytes/100 WBC (Bld) 23.36 % High 0.00-20.00 [facility] Comment on above: Result Comment: For adults in ED, MDW > 20.0 may be associated with a higher risk of sepsis during the first 12 hrs of hospital admission Performed By: #### P HOS, MG, CMP, CBC ####[address] Monocytes/100 WBC (Bld) 7.6 % Normal . [facility] Comment on above: Performed By: #### P HOS, MG, CMP, CBC ####[address] Neutrophils (Bld) [#/Vol] 5.2 10*3/uL Normal 1.8-7.7 [facility] Comment on above: Performed By: #### P HOS, MG, CMP, CBC ####[address] Neutrophils/100 WBC (Bld) 73.6 % Normal . [facility] Comment on above: Performed By: #### P HOS, MG, CMP, CBC ####[address] NRBC% 0.1 /100{WBC} Normal 0-0.5 [facility] Comment on above: Performed By: #### P HOS, MG, CMP, CBC ####[address] Platelet mean volume (Bld) [Entitic vol] 9.1 fL Normal 6.3-10.7 [facility] Comment on above: Performed By: #### P HOS, MG, CMP, CBC ####[address] Platelets (Bld) [#/Vol] 224 10*3/uL Normal 150-450 [facility] Comment on above: Performed By: #### P HOS, MG, CMP, CBC ####[address] RBC (Bld) [#/Vol] 4.06 10*6/uL Normal 3.60-5.00 [facility] Comment on above: Performed By: #### P HOS, MG, CMP, CBC ####[address] WBC (Bld) [#/Vol] 7.0 10*3/uL Normal 3.8-11.6 [facility] Comment on above: Performed By: #### P HOS, MG, CMP, CBC ####[address] Comprehensive Metabolic Pane violeta 01-23-2025 Albumin [Mass/Vol] 3.6 g/dL Normal 3.5-5.7 [facility] Comment on above: Performed By: #### P HOS, MG, CMP, CBC ####[address] Albumin/Globulin [Mass ratio] 1.4 {ratio} Normal [facility] Comment on above: Performed By: #### P HOS, MG, CMP, CBC ####[address] ALP [Catalytic activity/Vol] 71 U/L Normal 34-104 [facility] Comment on above: Performed By: #### P HOS, MG, CMP, CBC ####[address] ALT [Catalytic activity/Vol] 20 U/L Normal 7-52 [facility] Comment on above: Performed By: #### P HOS, MG, CMP, CBC ####[address] Anion gap [Moles/Vol] 11.4 mmol/L Normal 6.0-15.0 [facility] Comment on above: Performed By: #### P HOS, MG, CMP, CBC ####[address] AST [Catalytic activity/Vol] 24 U/L Normal 13-39 [facility] Comment on above: Performed By: #### P HOS, MG, CMP, CBC ####[address] Bilirubin [Mass/Vol] 1.0 mg/dL Normal 0.3-1.0 [facility] Comment on above: Performed By: #### P HOS, MG, CMP, CBC ####[address] Calcium [Mass/Vol] 8.6 mg/dL Normal 8.6-10.3 [facility] Comment on above: Performed By: #### P HOS, MG, CMP, CBC ####[address] Chloride [Moles/Vol] 105 mmol/L Normal 98-107 [facility] Comment on above: Performed By: #### P HOS, MG, CMP, CBC ####[address] CO2 [Moles/Vol] 27.3 mmol/L Normal 21.0-31.0 [facility] Comment on above: Performed By: #### P HOS, MG, CMP, CBC ####[address] Creatinine [Mass/Vol] 1.20 mg/dL Normal 0.60-1.20 [facility] Comment on above: Performed By: #### P HOS, MG, CMP, CBC ####[address] Creatinine Clr Calc Pharmacy 28.86 Normal [facility] Comment on above: Performed By: #### P HOS, MG, CMP, CBC ####[address] Estimated GFR 45.195 mL/Min Normal [facility] Comment on above: Performed By: #### P HOS, MG, CMP, CBC ####[address] Globulin (S) [Mass/Vol] 2.5 g/dL Normal [facility] Comment on above: Performed By: #### P HOS, MG, CMP, CBC ####[address] Glucose [Mass/Vol] 85 mg/dL Normal 70-100 [facility] Comment on above: Result Comment: [facility] [place][note 2] Glucose Reference Range is dependent on time and content of last meal. Glucose of more than 200 mg/dL in a nonstressed, ambulatory subject supports the diagnosis of Diabetes Mellitus. ADA recommended reference range Performed By: #### P HOS, MG, CMP, CBC ####[address] Potassium [Moles/Vol] 3.7 mmol/L Normal 3.5-5.1 [facility] Comment on above: Performed By: #### P HOS, MG, CMP, CBC ####[address] Protein [Mass/Vol] 6.1 g/dL Low 6.4-8.9 [facility] Comment on above: Performed By: #### P HOS, MG, CMP, CBC ####[address] Sodium [Moles/Vol] 140 mmol/L Normal 136-145 [facility] Comment on above: Performed By: #### P HOS, MG, CMP, CBC ####[address] Urea nitrogen [Mass/Vol] 25 mg/dL Normal 7-25 [facility] Comment on above: Performed By: #### P HOS, MG, CMP, CBC ####[address] Creatinine [Mass/volume] in Serum or PlasmaOrdered By: Ángel Minaya on 01-23-2025 Creatinine [Mass/Vol] Creatinine [Mass/v olume] in Serum or Plasma 0.60-1.20 [facility] Drug Screen,Urineon 01-24-20 25 Amphetamine Screen,Urine Negative Normal Negative [facility] Comment on above: Performed By: #### U RDS ####[address] Barbiturate Screen,Urine Negative Normal Negative [facility] Comment on above: Performed By: #### U RDS ####[address] Benzodiazepines Screen,Urine Negative Normal Negative [facility] Comment on above: Performed By: #### U RDS ####[address] Cannabinoid Screen,Urine Negative Normal Negative [facility] Comment on above: Result Comment: Thes e are unconfirmed results and should not be used for legal purposes. Drug Cut-Off Concentration: AMPH 1000 ng/mL RAMESH 200 ng/mL ANAI 200 ng/mL COCM 300 ng/mL OP 300 ng/mL PCP 25 ng/mL THC 20 ng/mL PERFORMED BY: [facility] [address] [address] PATHOLOGIST [employer] REENA JIN M.D. Performed By: #### U RDS ####[place] [id number] [facility] Cocaine Screen,Urine Negative Normal Negative [facility] Comment on above: Performed By: #### U RDS ####[place] [id number] [facility] Opiate Screen,Urine Positive High Negative [facility] Comment on above: Performed By: #### U RDS ####[address] Phencyclidine Screen,Urine Negative Normal Negative [facility] Comment on above: Performed By: #### U RDS ####[address] Eosinophils Auto (Bld) [#/Vo l]Ordered By: Ángel Minaya on 01-23-2025 Eosinophils (Bld) [#/Vol] Automated eosinophil count 0.0-0.45 [facility] Eosinophils/100 WBC Auto (Bl d)Ordered By: Ángel Minaya on 01-23-2025 Eosinophils/100 WBC (Bld) Automated eosinophil % . [facility] Erythrocyte distribution wid th Auto (RBC) [Ratio]Ordered By: Ángel Minaya on 01-23-2025 Erythrocyte distribution width (RBC) [Ratio] Erythrocyte distribution width [Ratio] by Automated count 11.9-15.3 [facility] Globulin Calc (S) [Mass/Vol] Ordered By: Ángel Minaya on 01-23-2025 Globulin (S) [Mass/Vol] Serum globulin measurement by calculation (mass/volume) [facility] Glucose [Mass/volume] in Ser um or PlasmaOrdered By: Ángel Minaya on 01-23-2025 Glucose [Mass/Vol] Glucose [Mass/volume ] in Serum or Plasma 70-100 [facility] Comment on above: ADA recommended refe rence rangeRandom Glucose Reference Range is dependent on time and content of last meal. Glucose of more than 200 mg/dL in a nonstressed, ambulatory subject supports the diagnosis of Diabetes Mellitus. Hematocrit Auto (Bld) [Volum e fraction]Ordered By: Ángel Minaya on 01-23-2025 Hematocrit (Bld) [Volume fraction] Hematocrit [Volume Fraction] of Blood by Automated count 34.0-46.4 [facility] Hemoglobin [Mass/volume] in BloodOrdered By: Ángel Minaya on 01-23-2025 Hemoglobin (Bld) [Mass/Vol] Hemoglobin [Mass/volume] in Blood 11.8-15.4 [facility] Leukocytes [#/volume] correc anne marie for nucleated erythrocytes in Blood by Automated counOrdered By: Ángel Minaya on 01-23-2025 WBC corrected for nucl RBC Auto (Bld) [#/Vol] Leukocytes [#/volume] corrected for nucleated erythrocytes in Blood by Automated coun 3.8-11.6 [facility] Lymphocytes Auto (Bld) [#/Vo l]Ordered By: Ángel Minaya on 01-23-2025 Lymphocytes (Bld) [#/Vol] Lymphocytes [#/volume] in Blood by Automated count 1.00-4.8 [facility] Lymphocytes/100 WBC Auto (Bl d)Ordered By: Ángel Minaya on 01-23-2025 Lymphocytes/100 WBC (Bld) Lymphocytes/100 leukocytes in Blood by Automated count . [facility] MCH Auto (RBC) [Entitic mass ]Ordered By: Ángel Minaya on 01-23-2025 MCH (RBC) [Entitic mass] MCH [Entitic mass] by Automated count 24.7-34.3 [facility] MCHC Auto (RBC) [Mass/Vol]Or dered By: Ángel Minaya on 01-23-2025 MCHC (RBC) [Mass/Vol] MCHC [Mass/volume] by Automated count 32.0-35.0 [facility] MCV Auto (RBC) [Entitic vol] Ordered By: Ángel Minaya on 01-23-2025 MCV (RBC) [Entitic vol] MCV [Entitic volume] by Automated count 80-100 [facility] Magnesiumon 01-23-2025 Magnesium [Mass/Vol] 2.0 mg/dL Normal 1.9-2.7 [facility] Comment on above: Result Comment: PERF ORMED BY: [facility] [address] [place] [id number] PATHOLOGIST [employer] REENA JIN M.D. Performed By: #### P HOS, MG, CMP, CBC ####[facility] [id number] [place] [id number] [facility] Magnesium [Mass/volume] in S vaughn or PlasmaOrdered By: Ángel Minaya on 01-23-2025 Magnesium [Mass/Vol] Magnesium [Mass/vol ume] in Serum or Plasma 1.9-2.7 [facility] Monocyte distribution width [Entitic volume] in Blood by AutomatedOrdered By: Ángel Minaya on 01-23-2025 Monocyte distribution width Auto (Bld) [Entitic vol] Monocyte distribution width [Entitic volume] in Blood by Automated High 0.00-20.00 [facility] Comment on above: For adults in ED, MD W > 20.0 may be associated with a higher risk of sepsis during the first 12 hrs of hospital admission Monocytes Auto (Bld) [#/Vol] Ordered By: Ángel Minaya on 01-23-2025 Monocytes (Bld) [#/Vol] Automated blood monocyte count 0.0-0.8 [facility] Monocytes/100 WBC Auto (Bld) Ordered By: Ángel Minaya on 01-23-2025 Monocytes/100 WBC (Bld) Automated monocyte % . [facility] Neutrophils Auto (Bld) [#/Vo l]Ordered By: Ángel Minaya on 01-23-2025 Neutrophils (Bld) [#/Vol] Neutrophils [#/volume] in Blood by Automated count 1.8-7.7 [facility] Neutrophils/100 WBC Auto (Bl d)Ordered By: Ángel Minaya on 01-23-2025 Neutrophils/100 WBC (Bld) Automated neutrophil % . [facility] No Panel InformationOrdered By: Ángel Minaya on 01-23-2025 Estimated GFR (CKD-EPI) 45.195 mL/Min [facility] Creatinine Clearance (Chem 28.86 [facility] Nucleated erythrocytes [Pres ence] in Blood by Automated countOrdered By: Ángel Minaya on 01-23-2025 Nucleated RBC Auto Ql (Bld) Nucleated erythrocytes [Presence] in Blood by Automated count 0-0.5 [facility] Opiates [Presence] in Urine by Screen methodOrdered By: Ángel Minaya on 01-23-2025 Opiates Screen Ql (U) Opiates [Presence] in Urine by Screen method High Negative [facility] Phencyclidine Screen Ql (U)O rdered By: Ángel Minaya on 01-23-2025 Phencyclidine Ql (U) Phencyclidine [Pres ence] in Urine by Screen method Negative [facility] Phosphate [Mass/volume] in S vaughn or PlasmaOrdered By: Ángel Minaya on 01-23-2025 Phosphate [Mass/Vol] Phosphate [Mass/vol ume] in Serum or Plasma 2.5-4.5 [facility] Phosphoruson 01-23-2025 Phosphate [Mass/Vol] 4.4 mg/dL Normal 2.5-4.5 [facility] Comment on above: Performed By: #### P HOS, MG, CMP, CBC ####[facility] [id number] [place] [id number] [facility] Platelet mean volume Auto (B ld) [Entitic vol]Ordered By: Ángel Minaya on 01-23-2025 Platelet mean volume (Bld) [Entitic vol] Platelet mean volume [Entitic volume] in Blood by Automated count 6.3-10.7 [facility] Platelets Auto (Bld) [#/Vol] Ordered By: Ángel Minaya on 01-23-2025 Platelets (Bld) [#/Vol] Platelets [#/volume] in Blood by Automated count 150-450 [facility] Potassium [Moles/volume] in Serum or PlasmaOrdered By: Ángel Minaya on 01-23-2025 Potassium [Moles/Vol] Potassium [Moles/v olume] in Serum or Plasma 3.5-5.1 [facility] Protein [Mass/volume] in Ser um or PlasmaOrdered By: Ángel Minaya on 01-23-2025 Protein [Mass/Vol] Protein [Mass/volume ] in Serum or Plasma Low 6.4-8.9 [facility] RBC Auto (Bld) [#/Vol]Ordere d By: Ángel Minaya on 01-23-2025 RBC (Bld) [#/Vol] Erythrocytes [#/volu me] in Blood by Automated count 3.60-5.00 [facility] Serum or plasma albumin/glob ulin mass ratioOrdered By: Ángel Minaya on 01-23-2025 Albumin/Globulin [Mass ratio] Serum or plasma albumin/globulin mass ratio [facility] Serum or plasma anion gap de terminationOrdered By: Ángel Minaya on 01-23-2025 Anion gap [Moles/Vol] Serum or plasma an ion gap determination 6.0-15.0 [facility] Sodium [Moles/volume] in Ser um or PlasmaOrdered By: Ángel Minaya on 01-23-2025 Sodium [Moles/Vol] Sodium [Moles/volume ] in Serum or Plasma 136-145 [facility] Urea nitrogen [Mass/volume] in Serum or PlasmaOrdered By: Ángel Minaya on 01-23-2025 Urea nitrogen [Mass/Vol] Urea nitrogen [Mass/volume] in Serum or Plasma 7 [facility] WBC Auto (Bld) [#/Vol]Ordere d By: Ángel Minaya on 01-23-2025 WBC (Bld) [#/Vol] Leukocytes [#/volume ] in Blood by Automated count 3.8-11.6 [facility] Alanine aminotransferase [En zymatic activity/volume] in Serum or PlasmaOrdered By: Maggie Rod on 01-22-2025 ALT [Catalytic activity/Vol] Alanine aminotransferase [Enzymatic activity/volume] in Serum or Plasma 7 [facility] Albumin [Mass/volume] in Ser um or Plasma by Bromocresol green (BCG) dye binding methoOrdered By: Maggie Rod on 01-22-2025 Albumin BCG dye [Mass/Vol] Albumin [Mass/volume] in Serum or Plasma by Bromocresol green (BCG) dye binding metho 3.5-5.7 [facility] Alkaline phosphatase [Enzyma tic activity/volume] in Serum or PlasmaOrdered By: Maggie Rod on 01-22-2025 ALP [Catalytic activity/Vol] Alkaline phosphatase [Enzymatic activity/volume] in Serum or Plasma 34-104 [facility] Aspartate aminotransferase [ Enzymatic activity/volume] in Serum or PlasmaOrdered By: Maggie Rod on 01-22-2025 AST [Catalytic activity/Vol] Aspartate aminotransferase [Enzymatic activity/volume] in Serum or Plasma 13-39 [facility] B-Type Natriuretic Peptideon 01-22-2025 Natriuretic peptide B (Bld) [Mass/Vol] 192.0 pg/mL High 5-100 [facility] Comment on above: Result Comment: PERF ORMED BY: [facility] [address] [place] [address] PATHOLOGIST [employer] REENA JIN M.D. Performed By: #### P T, CK, HS TROP, PTT, CBC, BNP, CMP, MG ####[facility] [place] [address] [facility] Basophils Auto (Bld) [#/Vol] Ordered By: Maggie Rod on 01-22-2025 Basophils (Bld) [#/Vol] Automated basophil count 0.0-0.2 [facility] Basophils/100 WBC Auto (Bld) Ordered By: Maggie Rod on 01-22-2025 Basophils/100 WBC (Bld) Automated basophil % . [facility] Bilirubin.total [Mass/volume ] in Serum or PlasmaOrdered By: Maggie Rod on 01-22-2025 Bilirubin [Mass/Vol] Bilirubin.total [Mass/volume] in Serum or Plasma High 0.3-1.0 [facility] Calcium [Mass/volume] in Ser um or PlasmaOrdered By: Maggie Rod on 01-22-2025 Calcium [Mass/Vol] Calcium [Mass/volume ] in Serum or Plasma 8.6-10.3 [facility] Carbon dioxide, total [Moles /volume] in Serum or PlasmaOrdered By: Maggie Rod on 01-22-2025 CO2 [Moles/Vol] Carbon dioxide, tota l [Moles/volume] in Serum or Plasma 21.0-31.0 [facility] Chloride [Moles/volume] in S vaughn or PlasmaOrdered By: Maggie Rod on 01-22-2025 Chloride [Moles/Vol] Chloride [Moles/vol ume] in Serum or Plasma 98-107 [facility] Complete Blood Count Auto Di ffon 01-22-2025 Basophils (Bld) [#/Vol] 0.1 10*3/uL Normal 0.0-0.2 [facility] Comment on above: Result Comment: PERF ORMED BY: [facility] [address] [place] [address] PATHOLOGIST [employer] REENA JIN M.D. Performed By: #### P T, CK, HS TROP, PTT, CBC, BNP, CMP, MG ####[facility] [id number] [place] [id number] [facility] Basophils/100 WBC (Bld) 1.2 % Normal . [facility] Comment on above: Performed By: #### P T, CK, HS TROP, PTT, CBC, BNP, CMP, MG ####[facility] [id number] [place] [id number] [facility] Eosinophils (Bld) [#/Vol] 0.2 10*3/uL Normal 0.0-0.45 [facility] Comment on above: Performed By: #### P T, CK, HS TROP, PTT, CBC, BNP, CMP, MG ####[address] Eosinophils/100 WBC (Bld) 2.5 % Normal . [facility] Comment on above: Performed By: #### P T, CK, HS TROP, PTT, CBC, BNP, CMP, MG ####[address] Erythrocyte distribution width (RBC) [Ratio] 14.4 % Normal 11.9-15.3 [facility] Comment on above: Performed By: #### P T, CK, HS TROP, PTT, CBC, BNP, CMP, MG ####[address] Hematocrit (Bld) [Volume fraction] 38.5 % Normal 34.0-46.4 [facility] Comment on above: Performed By: #### P T, CK, HS TROP, PTT, CBC, BNP, CMP, MG ####[address] Hemoglobin (Bld) [Mass/Vol] 13.3 g/dL Normal 11.8-15.4 [facility] Comment on above: Performed By: #### P T, CK, HS TROP, PTT, CBC, BNP, CMP, MG ####[address] Lymphocytes (Bld) [#/Vol] 1.4 10*3/uL Normal 1.00-4.8 [facility] Comment on above: Performed By: #### P T, CK, HS TROP, PTT, CBC, BNP, CMP, MG ####[address] Lymphocytes/100 WBC (Bld) 17.7 % Normal . [facility] Comment on above: Performed By: #### P T, CK, HS TROP, PTT, CBC, BNP, CMP, MG ####[address] MCH (RBC) [Entitic mass] 30.9 pg Normal 24.7-34.3 [facility] Comment on above: Performed By: #### P T, CK, HS TROP, PTT, CBC, BNP, CMP, MG ####[address] MCV (RBC) [Entitic vol] 89.4 fL Normal 80-100 [facility] Comment on above: Performed By: #### P T, CK, HS TROP, PTT, CBC, BNP, CMP, MG ####[address] Mean Corpuscular HGB Conc 34.6 g/dL Normal 32.0-35.0 [facility] Comment on above: Performed By: #### P T, CK, HS TROP, PTT, CBC, BNP, CMP, MG ####[address] Monocytes (Bld) [#/Vol] 0.6 10*3/uL Normal 0.0-0.8 [facility] Comment on above: Performed By: #### P T, CK, HS TROP, PTT, CBC, BNP, CMP, MG ####[address] Monocytes/100 WBC (Bld) 20.85 % High 0.00-20.00 [facility] Comment on above: Result Comment: For adults in ED, MDW > 20.0 may be associated with a higher risk of sepsis during the first 12 hrs of hospital admission Performed By: #### P T, CK, HS TROP, PTT, CBC, BNP, CMP, MG ####[address] Monocytes/100 WBC (Bld) 7.9 % Normal . [facility] Comment on above: Performed By: #### P T, CK, HS TROP, PTT, CBC, BNP, CMP, MG ####[address] Neutrophils (Bld) [#/Vol] 5.5 10*3/uL Normal 1.8-7.7 [facility] Comment on above: Performed By: #### P T, CK, HS TROP, PTT, CBC, BNP, CMP, MG ####[address] Neutrophils/100 WBC (Bld) 70.7 % Normal . [facility] Comment on above: Performed By: #### P T, CK, HS TROP, PTT, CBC, BNP, CMP, MG ####[address] NRBC% 0.2 /100{WBC} Normal 0-0.5 [facility] Comment on above: Performed By: #### P T, CK, HS TROP, PTT, CBC, BNP, CMP, MG ####[address] Platelet mean volume (Bld) [Entitic vol] 8.6 fL Normal 6.3-10.7 [facility] Comment on above: Performed By: #### P T, CK, HS TROP, PTT, CBC, BNP, CMP, MG ####[address] Platelets (Bld) [#/Vol] 240 10*3/uL Normal 150-450 [facility] Comment on above: Performed By: #### P T, CK, HS TROP, PTT, CBC, BNP, CMP, MG ####[address] RBC (Bld) [#/Vol] 4.31 10*6/uL Normal 3.60-5.00 [facility] Comment on above: Performed By: #### P T, CK, HS TROP, PTT, CBC, BNP, CMP, MG ####[address] WBC (Bld) [#/Vol] 7.8 10*3/uL Normal 3.8-11.6 [facility] Comment on above: Performed By: #### P T, CK, HS TROP, PTT, CBC, BNP, CMP, MG ####[address] Comprehensive Metabolic Pane violeta 01-22-2025 Albumin [Mass/Vol] 4.0 g/dL Normal 3.5-5.7 [facility] Comment on above: Performed By: #### P T, CK, HS TROP, PTT, CBC, BNP, CMP, MG ####[address] Albumin/Globulin [Mass ratio] 1.4 {ratio} Normal [facility] Comment on above: Performed By: #### P T, CK, HS TROP, PTT, CBC, BNP, CMP, MG ####[address] ALP [Catalytic activity/Vol] 87 U/L Normal 34-104 [facility] Comment on above: Performed By: #### P T, CK, HS TROP, PTT, CBC, BNP, CMP, MG ####[address] ALT [Catalytic activity/Vol] 19 U/L Normal 7-52 [facility] Comment on above: Performed By: #### P T, CK, HS TROP, PTT, CBC, BNP, CMP, MG ####[address] Anion gap [Moles/Vol] 12.2 mmol/L Normal 6.0-15.0 e [facility] Comment on above: Performed By: #### P T, CK, HS TROP, PTT, CBC, BNP, CMP, MG ####[address] AST [Catalytic activity/Vol] 23 U/L Normal 13-39 [facility] Comment on above: Performed By: #### P T, CK, HS TROP, PTT, CBC, BNP, CMP, MG ####[address] Bilirubin [Mass/Vol] 1.2 mg/dL High 0.3-1.0 [facility] Comment on above: Performed By: #### P T, CK, HS TROP, PTT, CBC, BNP, CMP, MG ####[address] Calcium [Mass/Vol] 9.2 mg/dL Normal 8.6-10.3 [facility] Comment on above: Performed By: #### P T, CK, HS TROP, PTT, CBC, BNP, CMP, MG ####[address] Chloride [Moles/Vol] 105 mmol/L Normal 98-107 [facility] Comment on above: Performed By: #### P T, CK, HS TROP, PTT, CBC, BNP, CMP, MG ####[address] CO2 [Moles/Vol] 25.7 mmol/L Normal 21.0-31.0 [facility] Comment on above: Performed By: #### P T, CK, HS TROP, PTT, CBC, BNP, CMP, MG ####[address] Creatinine [Mass/Vol] 1.13 mg/dL Normal 0.60-1.20 [facility] Comment on above: Performed By: #### P T, CK, HS TROP, PTT, CBC, BNP, CMP, MG ####[address] Creatinine Clr Calc Pharmacy 30.77 Normal [facility] Comment on above: Performed By: #### P T, CK, HS TROP, PTT, CBC, BNP, CMP, MG ####[address] Estimated GFR 48.575 mL/Min Normal [facility] Comment on above: Performed By: #### P T, CK, HS TROP, PTT, CBC, BNP, CMP, MG ####[address] Globulin (S) [Mass/Vol] 2.9 g/dL Normal [facility] Comment on above: Performed By: #### P T, CK, HS TROP, PTT, CBC, BNP, CMP, MG ####[place] [id number] [address] Glucose [Mass/Vol] 103 mg/dL High 70-100 [facility] Comment on above: Result Comment: [place] Glucose Reference Range is dependent on time and content of last meal. Glucose of more than 200 mg/dL in a nonstressed, ambulatory subject supports the diagnosis of Diabetes Mellitus. ADA recommended reference range Performed By: #### P T, CK, HS TROP, PTT, CBC, BNP, CMP, MG ####[address] Potassium [Moles/Vol] 3.9 mmol/L Normal 3.5-5.1 [facility] Comment on above: Performed By: #### P T, CK, HS TROP, PTT, CBC, BNP, CMP, MG ####[address] Protein [Mass/Vol] 6.9 g/dL Normal 6.4-8.9 [facility] Comment on above: Performed By: #### P T, CK, HS TROP, PTT, CBC, BNP, CMP, MG ####[address] Sodium [Moles/Vol] 139 mmol/L Normal 136-145 [facility] Comment on above: Performed By: #### P T, CK, HS TROP, PTT, CBC, BNP, CMP, MG ####[address] Urea nitrogen [Mass/Vol] 27 mg/dL High 7-25 [facility] Comment on above: Performed By: #### P T, CK, HS TROP, PTT, CBC, BNP, CMP, MG ####[address] Creatine Kinaseon 01-22-2025 CK [Catalytic activity/Vol] 41 U/L Normal 30-223 [facility] Comment on above: Performed By: #### P T, CK, HS TROP, PTT, CBC, BNP, CMP, MG ####[facility] [place] [address] [facility] Creatine kinase [Enzymatic a ctivity/volume] in Serum or PlasmaOrdered By: Maggie Rod on 01-22-2025 CK [Catalytic activity/Vol] Creatine kinase [Enzymatic activity/volume] in Serum or Plasma 30-223 [facility] Creatinine [Mass/volume] in Serum or PlasmaOrdered By: Maggie Rod on 01-22-2025 Creatinine [Mass/Vol] Creatinine [Mass/v olume] in Serum or Plasma 0.60-1.20 [facility] ECG 12 lead ECGon 01-22-2025 ECG 12 [place] [address] Electrocardiograph Report Signed Patient: Austin Golden MR#: [id number] 8 : 1940 Acct:[id number] Age/Sex: 84 / F ADM Date: 01/22/25 Loc: Room: [address] [place] [address] Type: ADM IN Attending Dr: Ángel Minaya MD Ordering Provider: Maggie Rod Jr, MD Date of Service: 01/22/2501/12/2240 ECG/ECG 12 lead ECG: Shortness of Breath/Dyspnea Copies to: Test Reason : Blood Pressure : */* mmHG Vent. Rate : 95 BPM Atrial Rate : 82 BPM P-R Int : * ms QRS Dur : 126 ms QT Int : 406 ms P-R-T Axes : * 19 152 degrees QTcB Int : 510 ms Sinus rhythm with frequent and consecutive premature atrial complexes with a demand pacemaker Abnormal ECG When compared with ECG of 22-Jan-2025 18:26, (Unconfirmed) Sinus rhythm has replaced Atrial fibrillation Confirmed by MAGGIE ROD MD ([id number]) on 01/23/2025 5:45:25 AM Referred By: Electronically Signed By: MAGGIE ROD MD Transcribed By: MUS Signed By Maggie Rod Jr, MD 0545 Normal [facility] ECG 12 lead ECG [place] [id number] Electrocardiograph Report Signed Patient: Austin Golden MR#: [id number] 8 : 1940 Acct:[id number] Age/Sex: 84 / F ADM Date: 01/22/25 Loc: 3T Room: [address] [place] [address] Type: ADM IN Attending Dr: Ángel Minaya MD Ordering Provider: Maggie Rod Jr, MD Date of Service: 01/22/2501/11/1818 ECG/ECG 12 lead ECG: Shortness of Breath/Dyspnea Copies to: Test Reason : Blood Pressure : 130/73 mmHG Vent. Rate : 121 BPM Atrial Rate : 122 BPM P-R Int : * ms QRS Dur : 132 ms QT Int : 380 ms P-R-T Axes : * 3 152 degrees QTcB Int : 539 ms Atrial fibrillation with rapid ventricular response Left bundle branch block Abnormal ECG When compared with ECG of 12-Sep-2024 11:18, QRS axis shifted left Non-specific change in ST segment in Anterior leads T wave inversion no longer evident in Inferior leads T wave inversion less evident in Anterolateral leads Confirmed by MAGGIE ROD MD ([id number]) on 01/23/2025 5:42:20 AM Referred By: Electronically Signed By: MAGGIE ROD MD Transcribed By: MUS Signed By Maggie Rod Jr, MD 0542 Normal [facility] Eosinophils Auto (Bld) [#/Vo l]Ordered By: Maggie Rod on 01-22-2025 Eosinophils (Bld) [#/Vol] Automated eosinophil count 0.0-0.45 [facility] Eosinophils/100 WBC Auto (Bl d)Ordered By: Maggie Rod on 01-22-2025 Eosinophils/100 WBC (Bld) Automated eosinophil % . [facility] Erythrocyte distribution wid th Auto (RBC) [Ratio]Ordered By: Maggie Rod on 01-22-2025 Erythrocyte distribution width (RBC) [Ratio] Erythrocyte distribution width [Ratio] by Automated count 11.9-15.3 [facility] Globulin Calc (S) [Mass/Vol] Ordered By: Maggie Rod on 01-22-2025 Globulin (S) [Mass/Vol] Serum globulin measurement by calculation (mass/volume) [facility] Glucose [Mass/volume] in Ser um or PlasmaOrdered By: Maggie Rod on 01-22-2025 Glucose [Mass/Vol] Glucose [Mass/volume ] in Serum or Plasma High 70-100 [facility] Comment on above: ADA recommended refe rence rangeRandom Glucose Reference Range is dependent on time and content of last meal. Glucose of more than 200 mg/dL in a nonstressed, ambulatory subject supports the diagnosis of Diabetes Mellitus. Hematocrit Auto (Bld) [Volum e fraction]Ordered By: Maggie Rod on 01-22-2025 Hematocrit (Bld) [Volume fraction] Hematocrit [Volume Fraction] of Blood by Automated count 34.0-46.4 [facility] Hemoglobin [Mass/volume] in BloodOrdered By: Maggie Rod on 01-22-2025 Hemoglobin (Bld) [Mass/Vol] Hemoglobin [Mass/volume] in Blood 11.8-15.4 [facility] INR in Platelet poor plasma by Coagulation assayOrdered By: Maggie Rod on 01-22-2025 INR Coag (PPP) [Relative time] INR in Platelet poor plasma by Coagulation assay [facility] Comment on above: INR Therapeutic Rang [...] with mechanical heart valves: 3 - 4.5 Leukocytes [#/volume] correc anne marie for nucleated erythrocytes in Blood by Automated counOrdered By: Maggie Rod on 01-22-2025 WBC corrected for nucl RBC Auto (Bld) [#/Vol] Leukocytes [#/volume] corrected for nucleated erythrocytes in Blood by Automated coun 3.8-11.6 [facility] Lymphocytes Auto (Bld) [#/Vo l]Ordered By: Maggie Rod on 01-22-2025 Lymphocytes (Bld) [#/Vol] Lymphocytes [#/volume] in Blood by Automated count 1.00-4.8 [facility] Lymphocytes/100 WBC Auto (Bl d)Ordered By: Maggie Rod on 01-22-2025 Lymphocytes/100 WBC (Bld) Lymphocytes/100 leukocytes in Blood by Automated count . [facility] MCH Auto (RBC) [Entitic mass ]Ordered By: Maggie Rod on 01-22-2025 MCH (RBC) [Entitic mass] MCH [Entitic mass] by Automated count 24.7-34.3 [facility] MCHC Auto (RBC) [Mass/Vol]Or dered By: Maggie Rod on 01-22-2025 MCHC (RBC) [Mass/Vol] MCHC [Mass/volume] by Automated count 32.0-35.0 [facility] MCV Auto (RBC) [Entitic vol] Ordered By: Maggie Rod on 01-22-2025 MCV (RBC) [Entitic vol] MCV [Entitic volume] by Automated count 80-100 [facility] Magnesiumon 01-22-2025 Magnesium [Mass/Vol] 2.1 mg/dL Normal 1.9-2.7 [facility] Comment on above: Result Comment: PERF ORMED BY: [facility] [address] [place] [id number] PATHOLOGIST [employer] REENA JIN M.D. Performed By: #### P T, CK, HS TROP, PTT, CBC, BNP, CMP, MG ####[facility] [place] [id number] [facility] Magnesium [Mass/volume] in S vaughn or PlasmaOrdered By: Maggie Rod on 01-22-2025 Magnesium [Mass/Vol] Magnesium [Mass/vol ume] in Serum or Plasma 1.9-2.7 [facility] Monocyte distribution width [Entitic volume] in Blood by AutomatedOrdered By: Maggie Rod on 01-22-2025 Monocyte distribution width Auto (Bld) [Entitic vol] Monocyte distribution width [Entitic volume] in Blood by Automated High 0.00-20.00 [facility] Comment on above: For adults in ED, MD W > 20.0 may be associated with a higher risk of sepsis during the first 12 hrs of hospital admission Monocytes Auto (Bld) [#/Vol] Ordered By: Maggie Rod on 01-22-2025 Monocytes (Bld) [#/Vol] Automated blood monocyte count 0.0-0.8 [facility] Monocytes/100 WBC Auto (Bld) Ordered By: Maggie Rod on 01-22-2025 Monocytes/100 WBC (Bld) Automated monocyte % . [facility] Natriuretic peptide B [Mass/ Vol]Ordered By: Maggie Rod on 01-22-2025 Natriuretic peptide B (Bld) [Mass/Vol] BNP ser/plas High 5-100 [facility] Neutrophils Auto (Bld) [#/Vo l]Ordered By: Maggie Rod on 01-22-2025 Neutrophils (Bld) [#/Vol] Neutrophils [#/volume] in Blood by Automated count 1.8-7.7 [facility] Neutrophils/100 WBC Auto (Bl d)Ordered By: Maggie Rod on 01-22-2025 Neutrophils/100 WBC (Bld) Automated neutrophil % . [facility] No Panel InformationOrdered By: Maggie Rod on 01-22-2025 Estimated GFR (CKD-EPI) 48.575 mL/Min [facility] Creatinine Clearance (Chem 30.77 [facility] Nucleated erythrocytes [Pres ence] in Blood by Automated countOrdered By: Maggie Rod on 01-22-2025 Nucleated RBC Auto Ql (Bld) Nucleated erythrocytes [Presence] in Blood by Automated count 0-0.5 [facility] Partial Thromboplastin Timeo n 01-22-2025 aPTT Coag (Bld) [Time] 32.2 s Normal 25.1-36.5 [facility] Comment on above: Result Comment: A he matocrit value greater than 55% may lead to inaccurate results in coagulation testing. Patients having hematocrit values >55% require a special collection tube for coagulation studies. Please contact the laboratory at [phone] for redraw instructions. PERFORMED BY: [facility] [address] [place] [address] PATHOLOGIST [employer] REENA JIN M.D. Performed By: #### P T, CK, HS TROP, PTT, CBC, BNP, CMP, MG ####[facility] [id number] [place] [address] [facility] Platelet mean volume Auto (B ld) [Entitic vol]Ordered By: Maggie Rod on 01-22-2025 Platelet mean volume (Bld) [Entitic vol] Platelet mean volume [Entitic volume] in Blood by Automated count 6.3-10.7 [facility] Platelets Auto (Bld) [#/Vol] Ordered By: Maggie Rod on 01-22-2025 Platelets (Bld) [#/Vol] Platelets [#/volume] in Blood by Automated count 150-450 [facility] Potassium [Moles/volume] in Serum or PlasmaOrdered By: Maggie Rod on 01-22-2025 Potassium [Moles/Vol] Potassium [Moles/v olume] in Serum or Plasma 3.5-5.1 [facility] Protein [Mass/volume] in Ser um or PlasmaOrdered By: Maggie Rod on 01-22-2025 Protein [Mass/Vol] Protein [Mass/volume ] in Serum or Plasma 6.4-8.9 [facility] Prothrombin Time INRon 01-22 INR Coag (PPP) [Relative time] 1.2 {INR} Normal [facility] Comment on above: [...] 3 - 4.5 Performed By: #### P T, CK, HS TROP, PTT, CBC, BNP, CMP, MG ####[facility] [id number] [place] [id number] [facility] PT Coag (PPP) [Time] 13.9 s High 9.0-12.9 [facility] Comment on above: Result Comment: A he matocrit value greater than 55% may lead to inaccurate results in coagulation testing. Patients having hematocrit values >55% require a special collection tube for coagulation studies. Please contact the laboratory at [phone] for redraw instructions. Performed By: #### P T, CK, HS TROP, PTT, CBC, BNP, CMP, MG ####[facility] [id number] [place] [address] [facility] Prothrombin time (PT)Ordered By: Maggie Rod on 01-22-2025 PT Coag (PPP) [Time] Prothrombin time (PT) High 9.0- 12.9 [facility] Comment on above: A hematocrit value g reater than 55% may lead to inaccurate results in coagulation testing. Patients having hematocrit values >55% require a special collection tube for coagulation studies. Please contact the laboratory at [phone] for redraw instructions. RBC Auto (Bld) [#/Vol]Ordere d By: Maggie Rod on 01-22-2025 RBC (Bld) [#/Vol] Erythrocytes [#/volu me] in Blood by Automated count 3.60-5.00 [facility] Serum or plasma albumin/glob ulin mass ratioOrdered By: Maggie Rod on 01-22-2025 Albumin/Globulin [Mass ratio] Serum or plasma albumin/globulin mass ratio [facility] Serum or plasma anion gap de terminationOrdered By: Maggie Rdo on 01-22-2025 Anion gap [Moles/Vol] Serum or plasma an ion gap determination 6.0-15.0 [facility] Sodium [Moles/volume] in Ser um or PlasmaOrdered By: Maggie Rod on 01-22-2025 Sodium [Moles/Vol] Sodium [Moles/volume ] in Serum or Plasma 136-145 [facility] Troponin I High Sensitivityo n 01-22-2025 Troponin I High Sensitivity 15 Normal 0-15 [facility] Comment on above: Result Comment: The Troponin units of report have been changed to meet the Chest Pain Accreditation requirement, element EC5.M1l2. Troponin units are changed from pg/ml to ng/L. Also, the decimal is removed and results are in whole numbers. PERFORMED BY: [facility] [address] [place] [id number] PATHOLOGIST [employer] REENA JIN M.D. Performed By: #### P T, CK, HS TROP, PTT, CBC, BNP, CMP, MG ####[facility] [place] [id number] [facility] Troponin I.cardiac [Mass/vol ume] in Serum or Plasma by Detection limit <= 0.01 ng/Ordered By: Maggie Rod on 01-22-2025 Troponin I.cardiac DL <= 0.01 ng/mL [Mass/Vol] Troponin I.cardiac [Mass/volume] in Serum or Plasma by Detection limit <= 0.01 ng/ 0-15 [facility] Comment on above: The Troponin units o f report have been changed to meet the Chest Pain Accreditation requirement, element EC5.M1l2. Troponin units are changed from pg/ml to ng/L. Also, the decimal is removed and results are in whole numbers. Urea nitrogen [Mass/volume] in Serum or PlasmaOrdered By: Maggie Rod on 01-22-2025 Urea nitrogen [Mass/Vol] Urea nitrogen [Mass/volume] in Serum or Plasma High 7-25 [facility] WBC Auto (Bld) [#/Vol]Ordere d By: Maggie Rod on 01-22-2025 WBC (Bld) [#/Vol] Leukocytes [#/volume ] in Blood by Automated count 3.8-11.6 [facility] X-ray reportOrdered By: Jadiel Borja on 01-22-2025 Study report [place] [id number] XRay Report Signed Patient: Austin Golden MR#: [id number] : 1940 Acct:[id number] Age/Sex: 84 / F ADM Date: 5 Loc: ER Room: Type: [facility] ER Attending Dr: Copies to: Maggie Rod Jr, MD~ Ordering Provider: Maggie Rod Jr, MD Date of Service: 01/22/25 XR/XR chest 1V portable: Shortness of Breath/Dyspnea Plain film chest Single view HISTORY: Shortness of breath COMPARISON: 09/11/2024 FINDINGS: SUPPORT DEVICES: None POSTSURGICAL CHANGES: Cardiac device remains intact HEART: Within normal limits PULMONARY JANNIE: Within normal limits MEDIASTINUM: Unremarkable LUNGS AND PLEURA: Mild basilar pleural-parenchymal changes BONY STRUCTURES: Intact ADDITIONAL FINDINGS None XR/XR chest 1V portable IMPRESSION: Similar small pleural effusions. Impression dictated by: Juanito Borja M.D. 01/22/2025 9:22 PM Dictation Location: [place] [address] Transcribed By: [facility] 01/22/252121 Dictated By: Juanito Borja DO 01/22/252120 Signed By: 01/22/252121 [facility] XR chest 1V portableon 01-22 XR chest 1V portable [address] [address] XRay Report Signed Patient: Austin Golden MR#: [id number] 8 : 1940 Acct:[id number] Age/Sex: 84 / F ADM Date: 01/22/25 Loc: Room: [address] [place] [address] Type: DIS INOo Attending Dr: Fahad Kim DO Copies to: DO Maggie Stuart Jr, MD Ordering Provider: Maggie Rod Jr, MD Date of Service: 01/22/25 XR/XR chest 1V portable: Shortness of Breath/Dyspnea Plain film chest Single view HISTORY: Shortness of breath COMPARISON: 09/11/2024 FINDINGS: SUPPORT DEVICES: None POSTSURGICAL CHANGES: Cardiac device remains intact HEART: Within normal limits PULMONARY JANNIE: Within normal limits MEDIASTINUM: Unremarkable LUNGS AND PLEURA: Mild basilar pleural-parenchymal changes BONY STRUCTURES: Intact ADDITIONAL FINDINGS None XR/XR chest 1V portable IMPRESSION: Similar small pleural effusions. Impression dictated by: Juanito Borja M.D. 01/22/2025 9:22 PM Dictation Location: [place] [address] Transcribed By: [facility] 01/22/252121 Dictated By: Juanito Borja DO 01/22/252120 Signed By: 01/22/252121 Normal [facility] aPTT in Platelet poor plasma by Coagulation assayOrdered By: Maggie Rod on 01-22-2025 aPTT Coag (PPP) [Time] Activated partial thromboplastin time (aPTT) in platelet poor plasma by coagulation a 25.1-36.5 [facility] Comment on above: A hematocrit value g reater than 55% may lead to inaccurate results in coagulation testing. Patients having hematocrit values >55% require a special collection tube for coagulation studies. Please contact the laboratory at [phone] for redraw instructions. Basophils Auto (Bld) [#/Vol] on 01-21-2025 Basophils (Bld) [#/Vol] Automated basophil count 0.0-0.1 [facility] Basophils/100 WBC Auto (Bld) on 01-21-2025 Basophils/100 WBC (Bld) Automated basophil % 0.2-2.0 [facility] Eosinophils/100 WBC Auto (Bl d)on 01-21-2025 Eosinophils/100 WBC (Bld) Automated eosinophil % 0.9-7.0 [facility] Erythrocyte distribution wid th Auto (RBC) [Ratio]on 01-21-2025 Erythrocyte distribution width (RBC) [Ratio] Erythrocyte distribution width [Ratio] by Automated count 11.0-15.0 [facility] Estimated glomerular filtrat ion rate (GFR) non- Americanon 01-21-2025 GFR/1.73 sq M.predicted among non-blacks MDRD (S/P/Bld) [Vol rate/Area] Estimated glomerular filtration rate (GFR) non- Low >=60 mL/min/1.7 3m 2 [facility] Globulin Calc (S) [Mass/Vol] on 01-21-2025 Globulin (S) [Mass/Vol] Serum globulin measurement by calculation (mass/volume) [facility] Hematocrit Auto (Bld) [Volum e fraction]on 01-21-2025 Hematocrit (Bld) [Volume fraction] Hematocrit [Volume Fraction] of Blood by Automated count 36.0-48.0 [facility] Hemoglobin [Mass/volume] in Bloodon 01-21-2025 Hemoglobin (Bld) [Mass/Vol] Hemoglobin [Mass/volume] in Blood 12.0-16.0 [facility] Laboratory - Chemistry and C hemistry - challengeon 01-21-2025 Albumin [Mass/Vol] 3.3 g/dL Low 3.4-5.0 [facility] ALP [Catalytic activity/Vol] 105 U/L 46-116 [facility] ALT [Catalytic activity/Vol] 33 U/L 14-59 [facility] AST [Catalytic activity/Vol] 30 U/L 15-37 [facility] Bilirubin [Mass/Vol] 1.1 mg/dL High 0.2-1.0 [facility] Calcium [Mass/Vol] 9.0 mg/dL 8.5-10.1 [facility] Chloride [Moles/Vol] 105 mmol/L 98-107 [facility] CO2 [Moles/Vol] 27.9 mmol/L 21.0-32.0 [facility] Creatinine [Mass/Vol] 1.20 mg/dL High 0.55-1.02 [facility] GFR/1.73 sq M.predicted MDRD (S/P/Bld) [Vol rate/Area] 52 mL/min/{1.73_m2} Low >=60 mL/min/1.7 3m 2 [facility] Glucose [Mass/Vol] 98 mg/dL 74-106 [facility] Potassium [Moles/Vol] 4.2 mmol/L 3.5-5.1 [facility] Protein [Mass/Vol] 7.0 g/dL 6.4-8.2 [facility] Sodium [Moles/Vol] 143 mmol/L 136-145 [facility] TSH Qn 5.492 m[IU]/L High 0.358-3.74 0 [facility] Urea nitrogen [Mass/Vol] 23.0 mg/dL High 7.0-18.0 [facility] Urea nitrogen/Creatinine [Mass ratio] 19.2 mg/mg [facility] Laboratory - Hematology and Cell countson 01-21-2025 Immature granulocytes/100 WBC (Bld) 0.3 % 0.0-0.5 [facility] Leukocytes [#/volume] correc anne marie for nucleated erythrocytes in Blood by Automated counon 01-21-2025 WBC corrected for nucl RBC Auto (Bld) [#/Vol] Leukocytes [#/volume] corrected for nucleated erythrocytes in Blood by Automated coun 4.0-11.0 [facility] Lymphocytes Auto (Bld) [#/Vo l]on 01-21-2025 Lymphocytes (Bld) [#/Vol] Lymphocytes [#/volume] in Blood by Automated count 1.2-3.8 [facility] Lymphocytes/100 WBC Auto (Bl d)on 01-21-2025 Lymphocytes/100 WBC (Bld) Lymphocytes/100 leukocytes in Blood by Automated count Low 20.5-60.0 [facility] MCH Auto (RBC) [Entitic mass ]on 01-21-2025 MCH (RBC) [Entitic mass] MCH [Entitic mass] by Automated count 26.7-34.0 [facility] MCHC Auto (RBC) [Mass/Vol]on 01-21-2025 MCHC (RBC) [Mass/Vol] MCHC [Mass/volume] by Automated count 29.9-35.2 [facility] MCV Auto (RBC) [Entitic vol] on 01-21-2025 MCV (RBC) [Entitic vol] MCV [Entitic volume] by Automated count 81.0-99.0 [facility] Monocytes Auto (Bld) [#/Vol] on 01-21-2025 Monocytes (Bld) [#/Vol] Automated blood monocyte count 0.3-0.8 [facility] Monocytes/100 WBC Auto (Bld) on 01-21-2025 Monocytes/100 WBC (Bld) Automated monocyte % 1.7-12.0 [facility] Neutrophils Auto (Bld) [#/Vo l]on 01-21-2025 Neutrophils (Bld) [#/Vol] Neutrophils [#/volume] in Blood by Automated count 1.4-6.5 [facility] Neutrophils/100 WBC Auto (Bl d)on 01-21-2025 Neutrophils/100 WBC (Bld) Automated neutrophil % 43.0-75.0 [facility] No Panel Informationon 01-21 Eosinophils # (Auto) 0.3 10 3/uL 0.0-0.7 [facility] Immature Granulocyte # (Auto) 0.02 10 3/uL 0.00-0.03 [facility] Platelet mean volume Auto (B ld) [Entitic vol]on 01-21-2025 Platelet mean volume (Bld) [Entitic vol] Platelet mean volume [Entitic volume] in Blood by Automated count 9.5-13.5 [facility] Platelets Auto (Bld) [#/Vol] on 01-21-2025 Platelets (Bld) [#/Vol] Platelets [#/volume] in Blood by Automated count 150-450 [facility] RBC Auto (Bld) [#/Vol]on RBC (Bld) [#/Vol] Erythrocytes [#/volu me] in Blood by Automated count 4.20-5.40 [facility] Serum or plasma albumin/glob ulin mass ratioon 01-21-2025 Albumin/Globulin [Mass ratio] Serum or plasma albumin/globulin mass ratio [facility] Serum or plasma anion gap de terminationon 01-21-2025 Anion gap [Moles/Vol] Serum or plasma an ion gap determination [facility] Assessment AND Plan Noteon 0 01-06-2025 [employer] Authentication Interface Message Text -discussed risks/benefits of surgery--it is high risk due to her age and revisional nature of it -she will talk to her family and let me know if she'd like to proceed with surgery or just live with it Normal [facility] Progress Noteson 01-06-2025 [employer] Outse[employer] Authentication Interface Message Text Phone numbers Preferred Documentation: Mode: Telephone Patient Patient Work Phone: Patient Cell Preferred phone: [phone] Consent: I confirmed patient understanding of the risks and benefits of telehealth visits and obtained consent to proceed with the telehealth visit. Location of Patient: Home of patient Medical discussion: more than 10 minutes Surgery Follow Up Still having a fair amount of regurgitation to food with weight loss. She is possibly interested in surgery, but unsure given the risks. Narrative AND Impression EXAMINATION: FL BARIUM SWALLOW DOUBLE CNTRST 06/26/2024 11:51 AM CLINICAL HISTORY: timed barium esophagram protocol for suspected EGJOO (with tablet too if able) ASSOCIATED DIAGNOSIS: Esophageal dysphagia ORDERING PROVIDER: KATIE YUNG TECHNOLOGISTS NOTE: COMPARISON: None FLUOROSCOPIST: ALVARADO ALEXUS FLUORO TIME: 7.1 Minutes PROCEDURE: Double contrast air and barium examination of the hypopharynx and esophagus in multiple upright positions and double contrast examination of the esophagus in multiple horizontal positions was performed utilizing fluoroscopic and radiographic techniques. INTRA-PROCEDURE MEDS: Barium Sulfate 60 % 200 mL Route: OralBarium Sulfate 98 % suspension 100 mL Route: OralBarium Sulfate 1 Tab Route: Oral FINDINGS: Investment Banking Associate fluoroscopic spot images of the abdomen: Non-obstructive intestinal gas pattern. No sub-diaphragmatic free air. Dual-lead cardiac device with leads projecting over the right ventricle and right atrial appendage. Timed: Moderate contrast residual in the distal esophagus on the 0 minute image was cleared by 1 minute. Swallowing: Swallowing mechanism is intact. No laryngeal penetration, tracheal aspiration or nasopharyngeal reflux. Symmetric and normal appearing valleculae and pyriform sinuses. 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 Esophagus: Tortuous distal esophagus with normal caliber. Short segment of narrowing at the proximal stomach, likely due to previous fundoplication wrap. Stricture is not excluded Hiatal hernia: Small sliding (type I) hiatal hernia. 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 Barium Tablet: Impedance to the passage of a 1.3 cm tablet in the small hiatal hernia. IMPRESSION: 1. Small sliding (type I) hiatal hernia which caused impedance to the passage of a 1.3 cm tablet in the small hiatal hernia. 2. Spontaneous gastroesophageal reflux to the level of the aortic arch. 3. Short segment of narrowing at the proximal stomach, likely due to previous fundoplication wrap. Stricture is not excluded 4. Nonspecific esophageal motility disorder. 5. Cricopharyngeus bar. MACRO: None I personally interpreted the upper GI and agree with a hiatal hernia recurrence Assessment AND Plan History of repair of hiatal hernia -discussed risks/benefits of surgery--it is high risk due to her age and revisional nature of it -she will talk to her family and let me know if she'd like to proceed with surgery or just live with it Nigel El MD, FACS Normal [facility] Progress Noteson 12-31-2024 [employer]se[employer] Authentication Interface Message Text This encounter was opened in error. Patient was a No-Show. Please disregard. Called twice, left message to reschedule. Nigel El MD Normal [facility] Assessment AND Plan Noteon 0 12-30-2024 [employer]se[employer] Authentication Interface Message Text -Evidence of recurrence on imaging/EGD -discussed non-operative vs operative management, patient elects to Normal [facility] Progress Noteson 12-30-2024 [employer]se[employer] Authentication Interface Message Text This encounter was opened in error. Patient was a No-Show. Please disregard. Called many times, left message to reschedule. Nigel El MD Normal [facility] Telephone Encounteron 2024 [employer] Authentication Interface Message Text [facility] 12/11 @ 9:30 cancelling appt. Left my number for r/s- SO Normal [facility] Anesthesia Postprocedure Taylor luationon 12-08-2024 [employer] Outseamer Authentication Interface Message Text Anesthesia Postoperative Assessment: Vital Signs (most recent): BP 126/52 Pulse 95 Temp 36.5 ???C (97.7 ???F) (Temporal) Resp 18 SpO2 95% Anesthesia Post Evaluation Level of consciousness: awake Post-procedure exam normal. Body temperature, hydration status, PONV and pain evaluated and addressed. Pain management: adequate Hydration status: normal PONV:No nausea/vomiting reported Cardiopulmonary status stable Respiratory status: acceptable Cardiovascular status: acceptable ANESTHESIA NOTABLE EVENTS: No notable events documented. 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 Other ROS: 84-year-old female with a past medical history of hypertension, hyperlipidemia. Patient had a long history of atrial fibrillation for which she started seeing [facility] since 2020 after she was hospitalized in [facility] for bradycardia. Adjustment of her medical therapy was performed with amiodarone at that time. 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 She was continue on amiodarone Physical Exam Airway Mallampati: II TM distance: Adequate Micrognathia: Not present Jaw opening: Adequate Neck flexion: Adequate Dental PE (+) intact and chipped teeth Pulmonary - pulmonary exam normal Comment: Chest clear to auscultation bilaterally Cardiovascular - cardiovascular exam normal Comment: RRR with S1S2; no murmurs, gallops, or rubs Neuro - neurological exam normal Comment: Awake, alert, oriented, No motor deficits and sensation grossly intact Plan Anesthesia plan: MAC; (NC) Anesthesia risks / alternatives discussed pre-op Questions answered / anesthesia plan accepted Past medical history, surgical history, allergies, and medications reviewed. Pertinent laboratory tests, EKG, imaging, and consults reviewed and I have personally seen and evaluated the patient, repeating shea portions of the history and physical examination. Attestation: Anesthesia options were discussed with the patient and/or legal teleservices representative. The risks, benefits and alternatives were reviewed. Questions regarding anesthesia were answered. Patient and/or legal teleservices representative knows such anesthetics and procedures may be performed by Resident physicians, Certified Anesthesiologist Assistants, or Certified Nurse Anesthetists under the supervision of a physician. The patient /or the patient's legal teleservices representative agree with the plan for anesthesia. MHPATFORM Normal [facility] Anesthesia Transfer Of Careo n 12-08-2024 [employer] Outseamer Authentication Interface Message Text Patient taken to PACU. Patient was drowsy, somnolent, comfortable, and stable on arrival. Anesthesia Transfer of Care Note Past Medical History: No past medical history on file. Sleep Apnea/Positive STOP-BANG: No Problem List: There is no problem list on file for this patient. Past Surgical History: Review of patient's past surgical history indicates: ESOPHAGOGASTRODUODENOSCOPY (05/29/2024) Procedure: ESOPHAGOGASTRODUODENOSCOPY with HREM catheter placement; Surgeon: Katie Yung MD; Location: [facility]; Service: Gastroenterology Allergies: Fentanyl Basic Operating Room Facts: Surgeon(s): Nigel El MD Anesthesiologist: Ernesto Parker MD CAA: Femi Martel CAA ESOPHAGOGASTRODUODENOSCOPY WITH ENDOFLIP Intraoperative Events: No acute event ASA: 3 EBL: Not documented Urine Not documented Lactated Ringers and NaCl 0.9%: Fluid Totals (Filter: LR and NaCl 0.9% Medications Shown) Medication Calculated Total NaCl 0.9% 300 mL / 1 bag Cell Saver: Not documented Blood Volume Values: Blood Products None MTP Blood: MTP PRBC: Not documented MTP FFP: Not documented MTP PLT: Not documented MTP Cryo: Not documented MTP Whole Blood: Not documented Current Vasoactive Medications: {Vasoactive Medications: None Lines, Drains, Airways Peripheral IV Access: 12/08/24 0937 20 gauge Distal;Posterior;Right Forearm (Active) Site Assessment Dressing intact;WNL 12/08/24 0937 Infusion Status Port #1 Positive blood return 12/08/24 0937 Airway Adjunct: Non-Rebreather Oral (Active) Airway Insertion Details * No LDAs found * All non-working IVs have been removed: N/A Laboratory Data: CBC (last 3 years, up to 8 values) No lab values to display. BMP (last 3 years, up to 8 values) No lab values to display. Basic Metabolic Panel No lab values to display. No results found for: INR No result for BNP LFT's (last 3 years, up to 8 values) No lab values to display. Arterial Blood Gases None Hand off Completed: Yes 1. The patient was identified. 2. Pertinent medical history was relayed. 3. A brief discussion was had about any pertinent surgical/ procedural issues. 4. Intraoperative/ anesthetic management issue and concerns were discussed. 5. Plans for the early post-operative period relayed. 6. An opportunity for questions and acknowledgment of understanding of the report was received. KOMAL Richardson Normal [facility] Blood Attestationon 12-09-19 [employer]seamer Authentication Interface Message Text Blood Attestation: ATTESTATION OF INFORMED CONSENT FOR BLOOD: The transfusion of blood and/or blood components were discussed with the patient and/or legal teleservices representative. The risks, benefits and alternatives were reviewed. Questions regarding blood transfusions were answered. The patient /or the patient's legal teleservices representative agree with the plan for transfusion of blood and/or blood components. Normal [facility] H AND Rudolph 12-08-2024 [employer] Outseamer Authentication Interface Message Text [facility] Austin Golden [id number] History (HPI) Austin Golden is a 84 year old female with PMH of afib on xarelto and 08/17/2015 open reduction of hiatal hernia with Lobo gastroplasty and Raul fundoplication. No past medical history on file. Past Surgical History: Procedure Laterality Date ESOPHAGOGASTRODUODENOSCOPY N/A 05/29/2024 Procedure: ESOPHAGOGASTRODUODENOSCOPY with HREM catheter placement; Surgeon: Katie Yung MD; Location: [facility]; Service: Gastroenterology Medications: Current Outpatient Medications Medication Instructions amiodarone (CORDARONE) 200 mg, DAILY atorvastatin (LIPITOR) 40 mg, DAILY buPROPion ER (WELLBUTRIN XL) 150 mg, DAILY calcium carbonate 600 mg, DAILY digoxin (LANOXIN) 0.125 mg, DAILY dilTIAZem (CARDIZEM CD) 180 mg, DAILY furosemide (LASIX) 20 mg, DAILY Multiple Vitamin (Multi Vitamin Daily) TABS 1 Tablet, DAILY pantoprazole (PROTONIX) 40 mg, 2 TIMES DAILY rOPINIRole (REQUIP) 1 mg, AT BEDTIME vitamin D3 50 mcg, DAILY Xarelto 15 mg, AT BEDTIME Allergies: Fentanyl Family History: family history is not on file. Social History: Smoking (-), EtOH (-), Drug Use (-) Review of Systems (Bold is Positive + ) Const: Fevers - Chills - WeightLoss - Sweating - Fatigue - MedChanges HEENT: Headaches - VisionChanges Cardiac: ChestPain - Palpitations Pulm: SOB - Cough (Productive) - Orthopnea - PND GI: Nausea - Vomiting - AbdPain - Diarrhea - Constipation - StoolChanges : Dysuria - Frequency - ColorChanges MSK: Pain - Swelling - Weakness Skin: Rash - Itching - Lumps/Bumps - Wounds Neuro: Numbness - Tingling - Dizziness - Falls Heme: Bleeding Physical Exam BP 166/71 Pulse 71 Temp 97.3 ???F (36.3 ???C) Resp 18 SpO2 94% General: No acute distress, awake Cardiac: Non-tachycardic Pulmonary: Non-labored breathing. Symmetric chest rise. Abdomen: Soft, non-tender, non-distended. No peritonitis Extremities: Moving all extremities spontaneously Skin: Warm, moist Neuro: AOx3 Labs: N/A N/A / N/A / N/A CBC: No results found for requested labs within last 120 days. N/A N/A N/A / N/A N/A N/A N/A BMP: No results found for requested labs within last 120 days. Studies: UGI IMPRESSION: 1. Small sliding (type I) hiatal hernia which caused impedance to the passage of a 1.3 cm tablet in the small hiatal hernia. 2. Spontaneous gastroesophageal reflux to the level of the aortic arch. 3. Short segment of narrowing at the proximal stomach, likely due to previous fundoplication wrap. Stricture is not excluded 4. Nonspecific esophageal motility disorder. 5. Cricopharyngeus bar. Assessment/Recommendations Austin Golden is a 84 year old female with PMH as noted above who presents for EGD with Endoflip PLAN: Patient consented for and okay continuing with EGD with endoflip Patient discussed with attending surgeon, Dr. Garima Sotomayor MD General Surgery Normal [facility] OP Noteon 12-08-2024 [employer] Out[employer]amer Authentication Interface Message Text Austin Golden 84 year old Surgical Contact Serial Number: [id number] Location: ENDO 04 Date: 12/08/2024 WHEELMAN: Nigel El MD ATTENDING:Nigel El MD Procedure(s): ESOPHAGOGASTRODUODENOSCOPY WITH ENDOFLIP INSTRUMENT: Scope #[id number] SEDATION: Anesthesia Assisted Pre-Op Diagnosis Codes: * Hiatal hernia [K44.9] INDICATIONS: This is a 84 year old female with: recurrent paraesophageal hernia and dysphagia While monitoring the patient with EKG, pulse oximetry and BP, endoscope passed to second portion of duodenum by direct visualization. FINDINGS: DUODENUM: bulb and descending portion appeared normal. STOMACH: pyloric channel, antrum, body, fundus and cardia, including retroflexed views appear normal. 5 cm hiatal hernia with transdiaphragmatic migration of intact fundoplication. ESOPHAGUS: diaphragmatic hiatus was 40 cm from incisors and GE junction (upper margin of gastric folds) was at 35 cm from incisors. Squamocolumnar junction was at 35 cm from incisors. Mucosa appeared normal. 5 cm hiatal hernia. EndoFlip Evaluation Endoscopy Suite Balloon size (cc) Diameter (mm) Distensibility Index 40 N/A N/A 50 14 11 60 15 8 Repetitive Antegrade Contractions: Yes Balloon pressure > 15: Above 50 cc Diaphragmatic hernia without obstruction or gangrene (Primary Diagnosis) [744256] Hiatal hernia [133557] Gastroesophageal reflux disease without esophagitis [473242] TEE PATH SPECIMEN SENT: no SPECIMEN: None PHOTOGRAPH TAKEN:yes COMPLICATIONS DURING PROCEDURE: None EBL (estimated blood loss): none IMPRESSION: 5 cm recurrence of paraesophageal hernia No EndoFLIP evidence of EGJOO RECOMMENDATIONS: Follow up with me as scheduled to discuss next steps (surgery vs. Non-surgical management) Follow up with GI as scheduled. General Post-Procedure Instructions: Your doctor recommends you start the following new medications: N/A If you take a blood-thinner at home, your doctor recommends you start taking it again after waiting this many hours: 0 hours (Okay to resume taking it immediately) Please avoid using NSAIDs (advil, motrin, ibuprofen, aleve, naproxen, toradol) for at least 48 hours. It is okay to use Tylenol for pain. You may continue/resume taking baby aspirin (81mg) today If you have any of the following symptoms, please contact the endoscopy center Mon-Fri 7:30am-4pm [phone] or after hours [facility] number [phone] Severe abdominal pain that keeps getting worse Fever or any other signs of infection Nausea or vomiting blood Seeing persistent blood coming out of your rectum, with or without stool (some streaks or drops of blood may be expected) For any additional questions, please call the endoscopy center at [phone] Follow-up with your Primary Care Provider CC: Primary Care Provider: No primary care provider on file. PERSON COMPLETING NOTE: Nigel El MD 12/08/2024 at 10:41 AM Patient meets criteria for discharge/transfer: Nigel El MD Normal [facility] [facility] Telephone Encounteron 2024 [employer] Authentication Interface Message Text What is the need: Situation: Pt states indigestion/vomiting this week this has been happening every night Background: Most recent visit in Gastroenterology was on 11/13/2024 with Katie Yung MD Assessment: see below Recommendation: Advised I would reach out to Dr. Yung/gi to see if pt needs a follow up appt Aidee Pyle RN Reason for Disposition Vomiting is a chronic symptom (recurrent or ongoing AND present > 4 weeks) Answer Assessment - Initial Assessment Questions 1. VOMITING SEVERITY: How many times have you vomited in the past 24 hours? - MILD: 1 - 2 times/day - MODERATE: 3 - 5 times/day, decreased oral intake without significant weight loss or symptoms of dehydration - SEVERE: 6 or more times/day, vomits everything or nearly everything, with significant weight loss, symptoms of dehydration once 2. ONSET: When did the vomiting begin? 4 years 3. FLUIDS: What fluids or food have you vomited up today? Have you been able to keep any fluids down? I'm trying to drink some water, did not keep the boost down 4. ABDOMEN PAIN: Are your having any abdomen pain? If Yes : How bad is it and what does it feel like? (e.g., crampy, dull, intermittent, constant) Pain on right side of stomach worse during emesis 5. DIARRHEA: Is there any diarrhea? If Yes, ask: How many times today? today 6. CONTACTS: Is there anyone else in the family with the same symptoms? N/a 7. CAUSE: What do you think is causing your vomiting? indigestion 8. HYDRATION STATUS: Any signs of dehydration? (e.g., dry mouth [not only dry lips], too weak to stand) When did you last urinate? Feels hydrated 9. OTHER SYMPTOMS: Do you have any other symptoms? (e.g., fever, headache, vertigo, vomiting blood or coffee grounds, recent head injury) denies 10. : Is there any chance you are ? When was your last menstrual period? N/a Protocols used: [id number] Normal The [employer] Interface Message Text What is the need: Situation: returning patients call Background: n/a Assessment: pt unable to provide three identifiers, states she is sick and to call back later. Recommendation: no advise given, RN offered to call 911 for patient, pt declined. Bonnie Clarke RN Normal The [email or web address] Interface Message Text Caller: The Pt Symptoms: Pt states that she is not able to keep food down. Patient is requesting a call back from the Triage Nurse. Thank you! Normal The [email or web address] Interface Message Text Pt calling to check the status of her previous message requesting a sooner GI appointment with Dr. Charles Yung. Pt states that she is not able to keep boost or food down, (it keeps coming up). Please return call to Pt at: . Thank you Normal The [facility] Telephone Encounteron 2024 [employer] Authentication Interface Message Text Situation: pt is calling Background: sts that she received a call from dr yung and he advised pt that office staff will call her back With a sooner appt with one of his associates because of the serious problem she is having Nsc did not find any notes pertaining to this Assessment: please call pt back and advise Pt sts OK to leave a detailed message if needed Recommendation: see above Normal [facility] Progress Noteson 11-14-2024 [employer] Authentication Interface Message Text Documentation: Mode: Telephone Patient Patient Work Phone: Patient Cell Preferred phone: [phone] Consent: I confirmed patient understanding of the risks and benefits of telehealth visits and obtained consent to proceed with the telehealth visit. Location of Patient: Home of patient Medical discussion: more than 10 minutes Department of Gastroenterology and Hepatology GI Clinic Follow Up Note PCP: No primary care provider on file. Last GI Visit: Most recent visit in Gastroenterology was on 11/13/2024 with Katie Yung MD Subjective: Austin Golden is a 84 year old female with a past medical history significant for prior raul, afib on xarelto , presented for follow-up. She has been doing worse the last few months. Now ok with plan liquids. But solids mostly getting stuck, then having her hypersalivation, nausea, rhinorrhea until she brings up the food, or vomits it. No real nausea outside of these episodes. Recently even boost is a problem for her. Past medical, surgical, family and social histories reviewed and updated as appropriate. Review Of Systems Positives as noted in HPI. All other systems were reviewed and negative. Current Medications Current Outpatient Medications Medication Sig Dispense Refill rOPINIRole (REQUIP) 1 MG tablet Take 1 mg by mouth at bedtime. atorvastatin (LIPITOR) 40 mg tablet Take 40 mg by mouth daily. amiodarone (CORDARONE) 200 MG tablet Take 200 mg by mouth daily. buPROPion ER (WELLBUTRIN XL) 150 MG XL tablet Take 150 mg by mouth daily. Multiple Vitamin (Multi Vitamin Daily) TABS Take 1 Tablet by mouth daily. Cholecalciferol (vitamin D3) 50 MCG (1999 UT) CAPS capsule Take 50 mcg by mouth daily. digoxin (LANOXIN) 125 MCG tablet Take 0.125 mg by mouth daily. furosemide (LASIX) 20 MG tablet Take 20 mg by mouth daily. DilTIAZem (CARDIZEM CD) 120 MG ER capsule Take 180 mg by mouth daily. Xarelto 15 MG tablet Take 15 mg by mouth at bedtime. pantoprazole (PROTONIX) 40 MG tablet Take 40 mg by mouth 2 times daily. calcium carbonate 1500 (600 Ca) MG tablet Take 600 mg by mouth daily. No current facility-administered medications for this visit. Physical Exam There were no vitals taken for this visit. Labs and Imaging CBC (last 3 years, up to 8 values) No lab values to display. BMP (last 3 years, up to 8 values) No lab values to display. LFT's (last 3 years, up to 8 values) No lab values to display. No results found for: INR GI procedures reviewed: EGD, HREM, barium esophagram Assessment and Plan Austin Golden is a 84 year old female with a past medical history significant for prior raul, afib on xarelto , presented for follow-up. # Dysphagia: What she is reporting is esophageal dysphagia with what seems some type of vagal response systemically. Which could occur due to the pressure in the distal esophagus I am guessing. Her EGD shows narrowing at the GEJ/proximal stomach, likely from prior raul. Barium swallow also shows this and tablet was held up there. HREM also showing EGJOO though catheter may have coiled before crossing the highest pressure zone. My suspicion overall is that her symptoms are from her raul which may be too tight and producing this EGJOO. However, would like more confirmation before recommending surgery. There is not discordance per se between the testing but the symptoms seem out of proportion to the HREM findings. I am also not sure how to explain why she suddenly felt well for several months back in the winter when I last spoke to her. Given these, would recommend alternate procedure not done yet such as EGD w/ EndoFLIP and likely repeat imaging with repeat barium swallow or upper GI series. --Discuss case with Dr. El or Dr. Crain - Plan EGD w/ EndoFlip with Dr. Gutiérrez or Garima - upper GI series vs repeat barium swallow per surgeon preference - consideration by surgery of loosening wrap to partial fundoplication? - if that isn't option or not effective can consider empiric dilation, botox injection - she is losing weight. Katie Yung MD Division of Gastroenterology AND Hepatology [facility] 11/14/24, 11:49 AM Normal [facility] Telephone Encounteron 2024 [employer] Authentication Interface Message Text Situation: swallowing difficulties Background: See nurse triage Assessment: See nurse triage Recommendation: pt advised to be seen within two weeks. pt verbalized understanding and agreed to plan of care. No appts available within this time frame for the patient. Please call pt with further instructions. Reason for Disposition Swallowing difficulty is a chronic symptom (recurrent or ongoing AND present > 4 weeks) Answer Assessment - Initial Assessment Questions 1. DESCRIPTION: Tell me more about this problem. Are you having trouble swallowing liquids, solids, or both? Any trouble with swallowing saliva (spit)? Trouble with solids, pt states she is vomiting occasionally and bringing up white saliva 2. SEVERITY: How bad is the swallowing difficulty? (Scale 1-10; or mild, moderate, severe) - MILD (0-3): Occasional swallowing difficulty; has trouble swallowing certain types of foods or liquids. - MODERATE (4-7): Frequent swallowing difficulty; only able to swallow small amounts of foods and fluids. - SEVERE (8-10): Unable to swallow any foods, fluids, or saliva; sensation of lump in throat or something stuck in throat , and frequent drooling or spitting may be present. severe 3. ONSET: When did the swallowing problems begin? Over the last month thses issues have gotten worse 4. CAUSE: What do you think is causing the problem? (e.g., dry mouth, food or pill stuck in throat, mouth pain, sore throat, progression of disease process such as dementia or Parkinson's disease). Pt states she saw GI and has an esophagus issue 5. CHRONIC or RECURRENT: Is this a new problem for you? If No, ask: How long have you had this problem? (e.g., days, weeks, months) chrinic 6. OTHER SYMPTOMS: Do you have any other symptoms? (e.g., chest pain, difficulty breathing, mouth sores, sore throat, swollen tongue, chest pain) Loss of appetite, vomiting, weight loss, back pain 7. : Is there any chance you are ? When was your last menstrual period? N/a Protocols used: Swallowing [id number] Normal The [facility] [employer] Authentication Interface Message Text Caller warm-transferred to [facility] Nurse for Sx/Buzzword situation of: Food getting stuck in throat Pt states white fluid comes out of patients mouth and nose runs 3-4 hours. Cannot eat anything solid. Cannot hold down the Boost drink. Pt states lost weight couple lbs a week Pt did states had a manometry test 05/29/2024 there was a block age Symptoms are coming back Caller's Telephone Number: Telephone Information: Normal [facility] Telephone Encounteron 2024 [employer] Authentication Interface Message Text Phoned patient to discuss symptoms. She feels fine. She has no nausea or vomiting. Just if she eats most solid foods she feels it gets stuck and then she starts salivating and feels pressure of food stuck in chest or epigastrum and feels need to make herself vomit. After brings up the food she feels fine. Liquids are fine. Duloxetine. Just started that one Oct 14. Her symptoms had been started gradually around that time. She is still taking the diltiazem and amiodarone. Otherwise no medication changes. This feels the same as what she experienced all those years. Plan: Trial of peppermint (altoids or liquid oil form) Call me back in 1 week with update No need for ED visit. If no response can try levsin next or consider switching to short acting diltiazem or consider nortriptyline. If continues consider endoflip +/- botox injection down the road. Though may not respond because has raul. Last resort is to loosen raul. Normal [facility] [employer] Authentication Interface Message Text Situation: Vomiting. Having worsening sx r/t EGJOO and was told to contact Dr Yung. Background: See nurse triage Assessment: See nurse triage Recommendation: Patient advised to call back with worsening sx. Dispo was ED now vs PCP Triage Page to GI @ [address] Gee who advised ED now for patient Return call to Patient 1616 who verbalized understanding. Patient stated she would try to come in after finding ride, but that it may not be today. Advised 911 if needed. Patient requesting call from Dr Yung when he receives this message. Reason for Disposition [1] MODERATE vomiting (e.g., 3 - 5 times/day) AND [2] age > 60 years Answer Assessment - Initial Assessment Questions 1. VOMITING SEVERITY: How many times have you vomited in the past 24 hours? - MILD: 1 - 2 times/day - MODERATE: 3 - 5 times/day, decreased oral intake without significant weight loss or symptoms of dehydration - SEVERE: 6 or more times/day, vomits everything or nearly everything, with significant weight loss, symptoms of dehydration 3x in last 24 hours, states will vomit up anything solid 2. ONSET: When did the vomiting begin? Started again 1 week ago Every day for 3 years had procedure with Endo 3. FLUIDS: What fluids or food have you vomited up today? Have you been able to keep any fluids down? Jello and soup stayed down. Drinking water okay 4. ABDOMEN PAIN: Are your having any abdomen pain? If Yes : How bad is it and what does it feel like? (e.g., crampy, dull, intermittent, constant) Denies 5. DIARRHEA: Is there any diarrhea? If Yes, ask: How many times today? Denies 6. CONTACTS: Is there anyone else in the family with the same symptoms? Denies 7. CAUSE: What do you think is causing your vomiting? Uncertain 8. HYDRATION STATUS: Any signs of dehydration? (e.g., dry mouth [not only dry lips], too weak to stand) When did you last urinate? Denies. 9. OTHER SYMPTOMS: Do you have any other symptoms? (e.g., fever, headache, vertigo, vomiting blood or coffee grounds, recent head injury) Denies 10. : Is there any chance you are ? When was your last menstrual period? N/A Protocols used: [id number] Normal [facility] [employer] Authentication Interface Message Text Symptoms - frequent vomiting Per decision tree transfer to nurse Normal [facility] Hemoglobin [Mass/volume] in Bloodon 10-01-2024 Hemoglobin (Bld) [Mass/Vol] Hemoglobin [Mass/volume] in Blood 12.0-16.0 [facility] Alanine aminotransferase [En zymatic activity/volume] in Serum or PlasmaOrdered By: Gracia Craig on 09-12-2024 ALT [Catalytic activity/Vol] Alanine aminotransferase [Enzymatic activity/volume] in Serum or Plasma [facility] Albumin [Mass/volume] in Ser um or Plasma by Bromocresol green (BCG) dye binding methoOrdered By: Gracia Craig on 09-12-2024 Albumin BCG dye [Mass/Vol] Albumin [Mass/volume] in Serum or Plasma by Bromocresol green (BCG) dye binding metho 3.5-5.7 [facility] Alkaline phosphatase [Enzyma tic activity/volume] in Serum or PlasmaOrdered By: Graciacatrina Craig on 09-12-2024 ALP [Catalytic activity/Vol] Alkaline phosphatase [Enzymatic activity/volume] in Serum or Plasma 34-104 [facility] Aspartate aminotransferase [ Enzymatic activity/volume] in Serum or PlasmaOrdered By: Graciacatrina Craig on 09-12-2024 AST [Catalytic activity/Vol] Aspartate aminotransferase [Enzymatic activity/volume] in Serum or Plasma 13-39 [facility] B-Type Natriuretic Peptideon 09-12-2024 Natriuretic peptide B (Bld) [Mass/Vol] 170.0 pg/mL High 5-100 [facility] Comment on above: Result Comment: PERF ORMED BY: [facility] [address] [place] [address] PATHOLOGIST [employer]BER AKILAH LOMBARDO M.D. Performed By: #### P T, CMP, BNP, HS TROP, CK, CBC ####[facility] Basophils Auto (Bld) [#/Vol] Ordered By: Gracia Craig on 09-12-2024 Basophils (Bld) [#/Vol] Automated basophil count 0.0-0.2 [facility] Basophils/100 WBC Auto (Bld) Ordered By: Gracia Craig on 09-12-2024 Basophils/100 WBC (Bld) Automated basophil % . [facility] Bilirubin.total [Mass/volume ] in Serum or PlasmaOrdered By: Gracia Craig on 09-12-2024 Bilirubin [Mass/Vol] Bilirubin.total [Mass/volume] in Serum or Plasma 0.3-1.0 [facility] COVID Cepheid NegativeOrdere d By: Gracia Craig on 09-12-2024 SARS-CoV-2 (COVID-19) Ab IA Ql COVID Cepheid Negative [facility] Comment on above: This is a duplicate Cepheid Xpert Xpress CoV-2/Flu/RSV Plus RNA by RT-PCR result to be used for statistical tracking purpose only. COVID-19 / Flu A/B / RSV PCR on 09-12-2024 SARS-CoV-2 (COVID-19) RNA GUILLERMO+probe Ql (Unsp spec) COVID-19 Cepheid Result Negative for SARS-CoV-2 RNA by RT-PCR Flu A Cepheid Result Negative for Flu A RNA by RT-PCR Flu B Cepheid Result Negative for Flu B RNA by RT-PCR RSV Cepheid Result Negative for RSV RNA by RT-PCR COVID19 Blank Space Reference: Negative COVID19 Blank Space Cepheid Disclaimer The Cepheid Xpert Xpress CoV-2/Flu/RSV Plus has Cepheid Disclaimer not been FDA cleared or approved; this test has Cepheid Disclaimer been authorized by FDA under an EUA for use by Cepheid Disclaimer authorized laboratories; this test has been Cepheid Disclaimer authorized only for the simultaneous qualitative Cepheid Disclaimer detection and differentiation of nucleic acids from Cepheid Disclaimer SARS-CoV-2, influenza A, influenza B, and [employer]epheid Disclaimer respiratory syncytial virus (RSV), and not for any Cepheid Disclaimer other viruses or pathogens; and this test is only Cepheid Disclaimer authorized for the duration of the declaration that Cepheid Disclaimer circumstances exist justifying the authorization of Cepheid Disclaimer emergency use of in vitro diagnostic tests for Cepheid Disclaimer detection and/or diagnosis of COVID-19 under Cepheid Disclaimer Section 564(b)(1) of the Act, 21 U.S.C. 360bbb- Cepheid Disclaimer 3(b)(1), unless the authorization is terminated or Cepheid Disclaimer revoked sooner. PERFORMED BY: [place] [address] PATHOLOGIST [employer]BER AKILAH LOMBARDO M.D. Normal [facility] Comment on above: Performed By: #### C OVID19 FLU RSV, CEPHEID NEG ####[facility] [id number] [place] [id number] [facility] CT chest wo conon 09-12-2024 CT chest wo con [facility] [place] [address] [place] [address] CT Scan Report Signed Patient: Austin Golden MR#: [id number] 8 : 1940 Acct:[id number] Age/Sex: 83 / F ADM Date: 09/12/24 Loc: ER Room: Type: [facility] ER Attending Dr: Copies to: Gracia Craig Do Ordering Provider: Gracia Craig Do Date of Service: 09/12/24 CT/CT chest wo con: sob R lung pain CT chest wo con 09/12/2024 12:03 PM SIGN AND SYMPTOMS: Shortness breath, right-sided chest pain TECHNIQUE: Multidetector CT axial slices of the chest were obtained without IV contrast. Multiplanar reformats were performed and viewed on a separate workstation and reviewed to further define anatomy and possible pathology. CT was performed with one or more of the following dose reduction techniques: Automated exposure control, adjustment of the mA and/or kV according to patient size, or use of iterative reconstruction technique. COMPARISON: 10/30/2022. FINDINGS: Lower neck: Thyroid gland within normal limits, no supraclavicle adenopathy. Vessels: Atherosclerotic changes are noted in the thoracic aorta, origins of the great vessels, and within the coronary arteries. Mediastinum and Jannie: Within normal limits. Heart: There is mild cardiomegaly. No pericardial effusion. Airways: Within normal limits Lungs: Mild dependent airspace opacity is noted in the lung bases. Pleura: Small to moderate bilateral pleural effusions are present, left greater than right. Chest Wall: There is a pacer generator along the left anterior chest wall. Upper Abdomen: Within normal limits. Bones: Degenerative changes are noted in the thoracic spine and shoulders. CT/CT chest wo con IMPRESSION: Small to moderate bilateral pleural effusions are noted with mild dependent atelectasis. There is mild cardiomegaly. No focal consolidation otherwise. Impression dictated by: Thomas Haskins M.D.09/12/2024 12:37 PM Dictation Location: [place] [address] Transcribed By: [facility] 09/12/24 1237 Dictated By: Thomas Hsakins II, MD 09/12/24 1233 Signed By: 09/12/24 1237 Normal [facility] Calcium [Mass/volume] in Ser um or PlasmaOrdered By: Gracia Craig on 09-12-2024 Calcium [Mass/Vol] Calcium [Mass/volume ] in Serum or Plasma 8.6-10.3 [facility] Carbon dioxide, total [Moles /volume] in Serum or PlasmaOrdered By: Gracia Craig on 09-12-2024 CO2 [Moles/Vol] Carbon dioxide, tota l [Moles/volume] in Serum or Plasma 21.0-31.0 [facility] Cepheid COVID PCR Negativeon 09-12-2024 SARS-CoV-2 (COVID-19) RNA GUILLERMO+probe Ql (Unsp spec) Negative Normal Negative [facility] Comment on above: Result Comment: This is a duplicate Cepheid Xpert Xpress CoV-2/Flu/RSV Plus RNA by RT-PCR result to be used for statistical tracking purpose only. PERFORMED BY: [facility] [address] [place] [address] PATHOLOGIST [employer]BER AKILAH LOMBARDO M.D. Performed By: #### C OVID19 FLU RSV, CEPHEID NEG ####[facility] [id number] [place] [address] [facility] Chloride [Moles/volume] in S vaughn or PlasmaOrdered By: Gracia Craig on 09-12-2024 Chloride [Moles/Vol] Chloride [Moles/vol ume] in Serum or Plasma 98-107 [facility] Complete Blood Count Auto Di ffon 09-12-2024 Basophils (Bld) [#/Vol] 0.0 10*3/uL Normal 0.0-0.2 [facility] Comment on above: Result Comment: PERF ORMED BY: [address] [place] [address] PATHOLOGIST [employer]BER AKILAH LOMBARDO M.D. Performed By: #### P T, CMP, BNP, HS TROP, CK, CBC ####[address] Basophils/100 WBC (Bld) 0.2 % Normal . [facility] Comment on above: Performed By: #### P T, CMP, BNP, HS TROP, CK, CBC ####[address] Eosinophils (Bld) [#/Vol] 0.2 10*3/uL Normal 0.0-0.45 [facility] Comment on above: Performed By: #### P T, CMP, BNP, HS TROP, CK, CBC ####[address] Eosinophils/100 WBC (Bld) 2.0 % Normal . [facility] Comment on above: Performed By: #### P T, CMP, BNP, HS TROP, CK, CBC ####[address] Erythrocyte distribution width (RBC) [Ratio] 15.1 % Normal 11.9-15.3 [facility] Comment on above: Performed By: #### P T, CMP, BNP, HS TROP, CK, CBC ####[address] Hematocrit (Bld) [Volume fraction] 49.4 % Significant change up 34.0-46.4 [facility] Comment on above: Performed By: #### P T, CMP, BNP, HS TROP, CK, CBC ####[address] Hemoglobin (Bld) [Mass/Vol] 16.2 g/dL High 11.8-15.4 [facility] Comment on above: Performed By: #### P T, CMP, BNP, HS TROP, CK, CBC ####[address] Lymphocytes (Bld) [#/Vol] 0.9 10*3/uL Low 1.00-4.8 [facility] Comment on above: Performed By: #### P T, CMP, BNP, HS TROP, CK, CBC ####[address] Lymphocytes/100 WBC (Bld) 11.4 % Normal . [facility] Comment on above: Performed By: #### P T, CMP, BNP, HS TROP, CK, CBC ####[address] MCH (RBC) [Entitic mass] 30.6 pg Normal 24.7-34.3 [facility] Comment on above: Performed By: #### P T, CMP, BNP, HS TROP, CK, CBC ####[address] MCV (RBC) [Entitic vol] 93.2 fL Normal 80-100 [facility] Comment on above: Performed By: #### P T, CMP, BNP, HS TROP, CK, CBC ####[address] Mean Corpuscular HGB Conc 32.9 g/dL Normal 32.0-35.0 [facility] Comment on above: Performed By: #### P T, CMP, BNP, HS TROP, CK, CBC ####[address] Monocytes (Bld) [#/Vol] 0.5 10*3/uL Normal 0.0-0.8 [facility] Comment on above: Performed By: #### P T, CMP, BNP, HS TROP, CK, CBC ####[address] Monocytes/100 WBC (Bld) 16.23 % Normal 0.00-20.00 [facility] Comment on above: Performed By: #### P T, CMP, BNP, HS TROP, CK, CBC ####[address] Monocytes/100 WBC (Bld) 5.7 % Normal . [facility] Comment on above: Performed By: #### P T, CMP, BNP, HS TROP, CK, CBC ####[address] Neutrophils (Bld) [#/Vol] 6.5 10*3/uL Normal 1.8-7.7 [facility] Comment on above: Performed By: #### P T, CMP, BNP, HS TROP, CK, CBC ####[address] Neutrophils/100 WBC (Bld) 80.7 % Normal . [facility] Comment on above: Performed By: #### P T, CMP, BNP, HS TROP, CK, CBC ####[address] NRBC% 0.6 /100{WBC} High 0-0.5 [facility] Comment on above: Performed By: #### P T, CMP, BNP, HS TROP, CK, CBC ####[address] Platelet mean volume (Bld) [Entitic vol] 8.4 fL Normal 6.3-10.7 [facility] Comment on above: Performed By: #### P T, CMP, BNP, HS TROP, CK, CBC ####[address] Platelets (Bld) [#/Vol] 196 10*3/uL Normal 150-450 [facility] Comment on above: Performed By: #### P T, CMP, BNP, HS TROP, CK, CBC ####[address] RBC (Bld) [#/Vol] 5.30 10*6/uL High 3.60-5.00 [facility] Comment on above: Performed By: #### P T, CMP, BNP, HS TROP, CK, CBC ####[address] WBC (Bld) [#/Vol] 8.0 10*3/uL Normal 3.8-11.6 [facility] Comment on above: Performed By: #### P T, CMP, BNP, HS TROP, CK, CBC ####[address] Comprehensive Metabolic Pane violeta 09-12-2024 Albumin [Mass/Vol] 4.0 g/dL Normal 3.5-5.7 [facility] Comment on above: Performed By: #### P T, CMP, BNP, HS TROP, CK, CBC ####[address] Albumin/Globulin [Mass ratio] 1.4 {ratio} Normal [facility] Comment on above: Performed By: #### P T, CMP, BNP, HS TROP, CK, CBC ####[address] ALP [Catalytic activity/Vol] 90 U/L Normal 34-104 [facility] Comment on above: Performed By: #### P T, CMP, BNP, HS TROP, CK, CBC ####[address] ALT [Catalytic activity/Vol] 20 U/L Normal 7-52 [facility] Comment on above: Performed By: #### P T, CMP, BNP, HS TROP, CK, CBC ####[address] Anion gap [Moles/Vol] 14.8 mmol/L Normal 6.0-15.0 e [facility] Comment on above: Performed By: #### P T, CMP, BNP, HS TROP, CK, CBC ####[address] AST [Catalytic activity/Vol] 28 U/L Normal 13-39 [facility] Comment on above: Performed By: #### P T, CMP, BNP, HS TROP, CK, CBC ####[address] Bilirubin [Mass/Vol] 1.0 mg/dL Normal 0.3-1.0 [facility] Comment on above: Performed By: #### P T, CMP, BNP, HS TROP, CK, CBC ####[address] Calcium [Mass/Vol] 9.5 mg/dL Normal 8.6-10.3 [facility] Comment on above: Performed By: #### P T, CMP, BNP, HS TROP, CK, CBC ####[address] Chloride [Moles/Vol] 105 mmol/L Normal 98-107 [facility] Comment on above: Performed By: #### P T, CMP, BNP, HS TROP, CK, CBC ####[address] CO2 [Moles/Vol] 23.8 mmol/L Normal 21.0-31.0 [facility] Comment on above: Performed By: #### P T, CMP, BNP, HS TROP, CK, CBC ####[address] Creatinine [Mass/Vol] 1.22 mg/dL High 0.60-1.20 [facility] Comment on above: Performed By: #### P T, CMP, BNP, HS TROP, CK, CBC ####[address] Creatinine Clr Calc Pharmacy 30.27 Normal [facility] Comment on above: Result Comment: PERF ORMED BY: [facility] [address] [facility] [place] [address] PATHOLOGIST [employer] AKILAH LOMBARDO M.D. Performed By: #### P T, CMP, BNP, HS TROP, CK, CBC ####[address] Estimated GFR 44.584 mL/Min Normal [facility] Comment on above: Performed By: #### P T, CMP, BNP, HS TROP, CK, CBC ####[address] Globulin (S) [Mass/Vol] 2.8 g/dL Normal [facility] Comment on above: Performed By: #### P T, CMP, BNP, HS TROP, CK, CBC ####[address] Glucose [Mass/Vol] 110 mg/dL High 70-100 [facility] Comment on above: Result Comment: [facility] [place][note 2] Glucose Reference Range is dependent on time and content of last meal. Glucose of more than 200 mg/dL in a nonstressed, ambulatory subject supports the diagnosis of Diabetes Mellitus. ADA recommended reference range Performed By: #### P T, CMP, BNP, HS TROP, CK, CBC ####[address] Potassium [Moles/Vol] 3.6 mmol/L Normal 3.5-5.1 [facility] Comment on above: Performed By: #### P T, CMP, BNP, HS TROP, CK, CBC ####[address] Protein [Mass/Vol] 6.8 g/dL Normal 6.4-8.9 [facility] Comment on above: Performed By: #### P T, CMP, BNP, HS TROP, CK, CBC ####[address] Sodium [Moles/Vol] 140 mmol/L Normal 136-145 [facility] Comment on above: Performed By: #### P T, CMP, BNP, HS TROP, CK, CBC ####[address] Urea nitrogen [Mass/Vol] 29 mg/dL High 7-25 [facility] Comment on above: Performed By: #### P T, CMP, BNP, HS TROP, CK, CBC ####[address] Creatine Kinaseon 09-12-2024 CK [Catalytic activity/Vol] 53 U/L Normal [facility] Comment on above: Performed By: #### P T, CMP, BNP, HS TROP, CK, CBC ####[facility] [id number] [place] [address] [facility] Creatine kinase [Enzymatic a ctivity/volume] in Serum or PlasmaOrdered By: Gracia Craig on 09-12-2024 CK [Catalytic activity/Vol] Creatine kinase [Enzymatic activity/volume] in Serum or Plasma [facility] Creatinine [Mass/volume] in Serum or PlasmaOrdered By: Gracia Craig on 09-12-2024 Creatinine [Mass/Vol] Creatinine [Mass/v olume] in Serum or Plasma High 0.60-1.20 [facility] ECG 12 lead ECGon 09-12-2024 ECG 12 lead ECG [facility] [address] [place] [address] Electrocardiograph Report Signed Patient: Austin Golden MR#: [id number] 8 : 1940 Acct:[id number] Age/Sex: 83 / F ADM Date: 09/12/24 Loc: ER Room: Type: [facility] ER Attending Dr: Ordering Provider: Gracia Craig Do Date of Service: 09/12/24 ECG/ECG 12 lead ECG: Shortness of Breath/Dyspnea Copies to: Test Reason : Blood Pressure : 142/68 mmHG Vent. Rate : 124 BPM Atrial Rate : 125 BPM P-R Int : * ms QRS Dur : 122 ms QT Int : 384 ms P-R-T Axes : * 107 -83 degrees QTcB Int : 551 ms Atrial fibrillation with rapid ventricular response Rightward axis Nonspecific intraventricular conduction delay Abnormal ECG When compared with ECG of 21-Jul-2024 23:17, Atrial fibrillation has replaced Electronic ventricular pacemaker Confirmed by Vipin Awad ([id number]) on 2024 6:02:22 PM Referred By: Electronically Signed By: Vipin Awad Transcribed By: MUS Signed By Vipin Awad MD 09/14/24 1802 Normal [facility] Eosinophils Auto (Bld) [#/Vo l]Ordered By: Gracia Craig on 09-12-2024 Eosinophils (Bld) [#/Vol] Automated eosinophil count 0.0-0.45 [facility] Eosinophils/100 WBC Auto (Bl d)Ordered By: Gracia Craig on 09-12-2024 Eosinophils/100 WBC (Bld) Automated eosinophil % . [facility] Erythrocyte distribution wid th Auto (RBC) [Ratio]Ordered By: Gracia Craig 09-12-2024 Erythrocyte distribution width (RBC) [Ratio] Erythrocyte distribution width [Ratio] by Automated count 11.9-15.3 [facility] Globulin Calc (S) [Mass/Vol] Ordered By: Gracia Craig 09-12-2024 Globulin (S) [Mass/Vol] Serum globulin measurement by calculation (mass/volume) [facility] Glucose [Mass/volume] in Ser um or PlasmaOrdered By: Gracia Craig 09-12-2024 Glucose [Mass/Vol] Glucose [Mass/volume ] in Serum or Plasma High 70-100 [facility] Comment on above: ADA recommended refe rence rangeRandom Glucose Reference Range is dependent on time and content of last meal. Glucose of more than 200 mg/dL in a nonstressed, ambulatory subject supports the diagnosis of Diabetes Mellitus. Hematocrit Auto (Bld) [Volum e fraction]Ordered By: Gracia Craig 09-12-2024 Hematocrit (Bld) [Volume fraction] Hematocrit [Volume Fraction] of Blood by Automated count Invalid Interpretation Code 34.0-46.4 [facility] Comment on above: Delta: 40.2 on 09/11-1344 Hemoglobin [Mass/volume] in BloodOrdered By: Gracia Craig 09-12-2024 Hemoglobin (Bld) [Mass/Vol] Hemoglobin [Mass/volume] in Blood High 11.8-15.4 [facility] INR in Platelet poor plasma by Coagulation assayOrdered By: Gracia Craig 09-12-2024 INR Coag (PPP) [Relative time] INR in Platelet poor plasma by Coagulation assay [facility] Comment on above: INR Therapeutic Rang [...] with mechanical heart valves: 3 - 4.5 Leukocytes [#/volume] correc anne marie for nucleated erythrocytes in Blood by Automated counOrdered By: Gracia Craig on 09-12-2024 WBC corrected for nucl RBC Auto (Bld) [#/Vol] Leukocytes [#/volume] corrected for nucleated erythrocytes in Blood by Automated coun 3.8-11.6 [facility] Lymphocytes Auto (Bld) [#/Vo l]Ordered By: Gracia Craig on 09-12-2024 Lymphocytes (Bld) [#/Vol] Lymphocytes [#/volume] in Blood by Automated count Low 1.00-4.8 [facility] Lymphocytes/100 WBC Auto (Bl d)Ordered By: Gracia Craig on 09-12-2024 Lymphocytes/100 WBC (Bld) Lymphocytes/100 leukocytes in Blood by Automated count . [facility] MCH Auto (RBC) [Entitic mass ]Ordered By: Gracia Craig on 09-12-2024 MCH (RBC) [Entitic mass] MCH [Entitic mass] by Automated count 24.7-34.3 [facility] MCHC Auto (RBC) [Mass/Vol]Or dered By: Gracia Craig on 09-12-2024 MCHC (RBC) [Mass/Vol] MCHC [Mass/volume] by Automated count 32.0-35.0 [facility] MCV Auto (RBC) [Entitic vol] Ordered By: Garcia Craig 09-12-2024 MCV (RBC) [Entitic vol] MCV [Entitic volume] by Automated count 80-100 [facility] Monocyte distribution width [Entitic volume] in Blood by AutomatedOrdered By: Gracia Craig on 09-12-2024 Monocyte distribution width Auto (Bld) [Entitic vol] Monocyte distribution width [Entitic volume] in Blood by Automated 0.00-20.00 [facility] Monocytes Auto (Bld) [#/Vol] Ordered By: Gracia Craig on 09-12-2024 Monocytes (Bld) [#/Vol] Automated blood monocyte count 0.0-0.8 [facility] Monocytes/100 WBC Auto (Bld) Ordered By: Gracia Craig on 09-12-2024 Monocytes/100 WBC (Bld) Automated monocyte % . [facility] Natriuretic peptide B [Mass/ Vol]Ordered By: Gracia Craig on 09-12-2024 Natriuretic peptide B (Bld) [Mass/Vol] BNP ser/plas High 5-100 [facility] Neutrophils Auto (Bld) [#/Vo l]Ordered By: Gracia Craig on 09-12-2024 Neutrophils (Bld) [#/Vol] Neutrophils [#/volume] in Blood by Automated count 1.8-7.7 [facility] Neutrophils/100 WBC Auto (Bl d)Ordered By: Gracia Craig on 09-12-2024 Neutrophils/100 WBC (Bld) Automated neutrophil % . [facility] No Panel InformationOrdered By: Gracia Craig on 09-12-2024 Estimated GFR (CKD-EPI) 44.584 mL/Min [facility] Creatinine Clearance (Chem 30.27 [facility] Nucleated erythrocytes [Pres ence] in Blood by Automated countOrdered By: Gracia Craig on 09-12-2024 Nucleated RBC Auto Ql (Bld) Nucleated erythrocytes [Presence] in Blood by Automated count High 0-0.5 [facility] Platelet mean volume Auto (B ld) [Entitic vol]Ordered By: Gracia Craig on 09-12-2024 Platelet mean volume (Bld) [Entitic vol] Platelet mean volume [Entitic volume] in Blood by Automated count 6.3-10.7 [facility] Platelets Auto (Bld) [#/Vol] Ordered By: Gracia Craig 09-12-2024 Platelets (Bld) [#/Vol] Platelets [#/volume] in Blood by Automated count 150-450 [facility] Potassium [Moles/volume] in Serum or PlasmaOrdered By: Gracia Craig 09-12-2024 Potassium [Moles/Vol] Potassium [Moles/v olume] in Serum or Plasma 3.5-5.1 [facility] Protein [Mass/volume] in Ser um or PlasmaOrdered By: Gracia Craig 09-12-2024 Protein [Mass/Vol] Protein [Mass/volume ] in Serum or Plasma 6.4-8.9 [facility] Prothrombin Time INRon 09-12 INR Coag (PPP) [Relative time] 1.6 {INR} Normal [facility] Comment on above: [...] with mechanical heart valves: 3 - 4.5 PERFORMED BY: [facility] [address] [place] [id number] PATHOLOGIST [employer] AKILAH LOMBARDO M.D. Performed By: #### P T, CMP, BNP, HS TROP, CK, CBC ####[facility] [id number] [place] [id number] [facility] PT Coag (PPP) [Time] 18.3 s High 9.0-12.9 [facility] Comment on above: Result Comment: A matocrit value greater than 55% may lead to inaccurate results in coagulation testing. Patients having hematocrit values >55% require a special collection tube for coagulation studies. Please contact the laboratory at [phone] for redraw instructions. Performed By: #### P T, CMP, BNP, HS TROP, CK, CBC ####[facility] [place] [id number] [facility] Prothrombin time (PT)Ordered By: Gracia Craig on 09-12-2024 PT Coag (PPP) [Time] Prothrombin time (PT) High 9.0- 12.9 [facility] Comment on above: A hematocrit value g reater than 55% may lead to inaccurate results in coagulation testing. Patients having hematocrit values >55% require a special collection tube for coagulation studies. Please contact the laboratory at [phone] for redraw instructions. RBC Auto (Bld) [#/Vol]Ordere d By: Gracia Craig on 09-12-2024 RBC (Bld) [#/Vol] Erythrocytes [#/volu me] in Blood by Automated count High 3.60-5.00 [facility] Respiratory specimen influen za A virus, influenza B virus, respiratory syncytical virOrdered By: Gracia Craig on 09-12-2024 SARS-CoV-2 (COVID-19) RNA GUILLERMO+probe Ql (Unsp spec) Respiratory specimen influenza A virus, influenza B virus, respiratory syncytical vir [facility] Serum or plasma albumin/glob ulin mass ratioOrdered By: Gracia Craig on 09-12-2024 Albumin/Globulin [Mass ratio] Serum or plasma albumin/globulin mass ratio [facility] Serum or plasma anion gap de terminationOrdered By: Gracia Craig on 09-12-2024 Anion gap [Moles/Vol] Serum or plasma an ion gap determination 6.0-15.0 [facility] Sodium [Moles/volume] in Ser um or PlasmaOrdered By: Gracia Craig on 09-12-2024 Sodium [Moles/Vol] Sodium [Moles/volume ] in Serum or Plasma 136-145 [facility] Troponin I High Sensitivityo n 09-12-2024 Troponin I High Sensitivity 24 High 0-15 [facility] Comment on above: Result Comment: The Troponin units of report have been changed to meet the Chest Pain Accreditation requirement, element EC5.M1l2. Troponin units are changed from pg/ml to ng/L. Also, the decimal is removed and results are in whole numbers. PERFORMED BY: [facility] [address] [place] [address] PATHOLOGIST [employer] AKILAH LOMBARDO M.D. Performed By: #### P T, CMP, BNP, HS TROP, CK, CBC ####[facility] [id number] Troponin I.cardiac [Mass/vol ume] in Serum or Plasma by Detection limit <= 0.01 ng/Ordered By: Gracia Craig on 09-12-2024 Troponin I.cardiac DL <= 0.01 ng/mL [Mass/Vol] Troponin I.cardiac [Mass/volume] in Serum or Plasma by Detection limit <= 0.01 ng/ High 0-15 [facility] Comment on above: The Troponin units o f report have been changed to meet the Chest Pain Accreditation requirement, element EC5.M1l2. Troponin units are changed from pg/ml to ng/L. Also, the decimal is removed and results are in whole numbers. Urea nitrogen [Mass/volume] in Serum or PlasmaOrdered By: Gracia Craig on 09-12-2024 Urea nitrogen [Mass/Vol] Urea nitrogen [Mass/volume] in Serum or Plasma High 7-25 [facility] WBC Auto (Bld) [#/Vol]Ordere d By: Gracia Craig on 09-12-2024 WBC (Bld) [#/Vol] Leukocytes [#/volume ] in Blood by Automated count 3.8-11.6 [facility] Alanine aminotransferase [En zymatic activity/volume] in Serum or PlasmaOrdered By: Jazmin العلي on 09-11-2024 ALT [Catalytic activity/Vol] Alanine aminotransferase [Enzymatic activity/volume] in Serum or Plasma 7-52 [facility] Albumin [Mass/volume] in Ser um or Plasma by Bromocresol green (BCG) dye binding methoOrdered By: Jazmin العلي on 09-11-2024 Albumin BCG dye [Mass/Vol] Albumin [Mass/volume] in Serum or Plasma by Bromocresol green (BCG) dye binding metho 3.5-5.7 [facility] Alkaline phosphatase [Enzyma tic activity/volume] in Serum or PlasmaOrdered By: Jazmin العلي on 09-11-2024 ALP [Catalytic activity/Vol] Alkaline phosphatase [Enzymatic activity/volume] in Serum or Plasma 34-104 [facility] Aspartate aminotransferase [ Enzymatic activity/volume] in Serum or PlasmaOrdered By: Jazmin العلي on 09-11-2024 AST [Catalytic activity/Vol] Aspartate aminotransferase [Enzymatic activity/volume] in Serum or Plasma 13-39 [facility] B-Type Natriuretic Peptideon 09-11-2024 Natriuretic peptide B (Bld) [Mass/Vol] 195.0 pg/mL High 5-100 [facility] Comment on above: Result Comment: PERF ORMED BY: [facility] [address] [place] [address] PATHOLOGIST [employer] AKILAH LOMBARDO M.D. Performed By: #### C MP, BNP, CBC ####[facility] [id number] [place] [address] [place] Basophils Auto (Bld) [#/Vol] Ordered By: Jazmin العلي on 09-11-2024 Basophils (Bld) [#/Vol] Automated basophil count 0.0-0.2 [facility] Basophils/100 WBC Auto (Bld) Ordered By: Jazmin العلي on 09-11-2024 Basophils/100 WBC (Bld) Automated basophil % . [facility] Bilirubin.total [Mass/volume ] in Serum or PlasmaOrdered By: Jazmin العلي on 09-11-2024 Bilirubin [Mass/Vol] Bilirubin.total [Mass/volume] in Serum or Plasma High 0.3-1.0 [facility] Calcium [Mass/volume] in Ser um or PlasmaOrdered By: Jazmin العلي on 09-11-2024 Calcium [Mass/Vol] Calcium [Mass/volume ] in Serum or Plasma 8.6-10.3 [facility] Carbon dioxide, total [Moles /volume] in Serum or PlasmaOrdered By: Jazmin العلي on 09-11-2024 CO2 [Moles/Vol] Carbon dioxide, tota l [Moles/volume] in Serum or Plasma 21.0-31.0 [facility] Chloride [Moles/volume] in S vaughn or PlasmaOrdered By: Jazmin العلي on 09-11-2024 Chloride [Moles/Vol] Chloride [Moles/vol ume] in Serum or Plasma 98-107 [facility] Complete Blood Count Auto Di ffon 09-11-2024 Basophils (Bld) [#/Vol] 0.1 10*3/uL Normal 0.0-0.2 [facility] Comment on above: Result Comment: PERF ORMED BY: [facility] [address] [facility] [place] [address] PATHOLOGIST [employer] AKILAH LOMBARDO M.D. Performed By: #### C MP, BNP, CBC ####[place] [address] [place] [id number] [place] Basophils/100 WBC (Bld) 0.6 % Normal . [facility] Comment on above: Performed By: #### C MP, BNP, CBC ####[place] [address] [place] Eosinophils (Bld) [#/Vol] 0.2 10*3/uL Normal 0.0-0.45 [facility] Comment on above: Performed By: #### C MP, BNP, CBC ####[address] Eosinophils/100 WBC (Bld) 1.9 % Normal . [facility] Comment on above: Performed By: #### C MP, BNP, CBC ####[address] Erythrocyte distribution width (RBC) [Ratio] 15.1 % Normal 11.9-15.3 [facility] Comment on above: Performed By: #### C MP, BNP, CBC ####[address] Hematocrit (Bld) [Volume fraction] 40.2 % Normal 34.0-46.4 [facility] Comment on above: Performed By: #### C MP, BNP, CBC ####[address] Hemoglobin (Bld) [Mass/Vol] 13.5 g/dL Normal 11.8-15.4 [facility] Comment on above: Performed By: #### C MP, BNP, CBC ####[address] Lymphocytes (Bld) [#/Vol] 1.1 10*3/uL Normal 1.00-4.8 [facility] Comment on above: Performed By: #### C MP, BNP, CBC ####[address] Lymphocytes/100 WBC (Bld) 12.0 % Normal . [facility] Comment on above: Performed By: #### C MP, BNP, CBC ####[address] MCH (RBC) [Entitic mass] 30.6 pg Normal 24.7-34.3 [facility] Comment on above: Performed By: #### C MP, BNP, CBC ####[address] MCV (RBC) [Entitic vol] 90.9 fL Normal 80-100 [facility] Comment on above: Performed By: #### C MP, BNP, CBC ####[address] Mean Corpuscular HGB Conc 33.7 g/dL Normal 32.0-35.0 [facility] Comment on above: Performed By: #### C MP, BNP, CBC ####[address] Monocytes (Bld) [#/Vol] 0.7 10*3/uL Normal 0.0-0.8 [facility] Comment on above: Performed By: #### C MP, BNP, CBC ####[address] Monocytes/100 WBC (Bld) 7.6 % Normal . [facility] Comment on above: Performed By: #### C MP, BNP, CBC ####[address] Neutrophils (Bld) [#/Vol] 7.2 10*3/uL Normal 1.8-7.7 [facility] Comment on above: Performed By: #### C MP, BNP, CBC ####[address] Neutrophils/100 WBC (Bld) 77.9 % Normal . [facility] Comment on above: Performed By: #### C MP, BNP, CBC ####[address] NRBC% 0.1 /100{WBC} Normal 0-0.5 [facility] Comment on above: Performed By: #### C MP, BNP, CBC ####[address] Platelet mean volume (Bld) [Entitic vol] 8.4 fL Normal 6.3-10.7 [facility] Comment on above: Performed By: #### C MP, BNP, CBC ####[place] [id number] [facility] Platelets (Bld) [#/Vol] 245 10*3/uL Normal 150-450 [facility] Physician Group Comment on above: Performed By: #### C MP, BNP, CBC ####[address] RBC (Bld) [#/Vol] 4.42 10*6/uL Normal 3.60-5.00 [facility] Comment on above: Performed By: #### C MP, BNP, CBC ####[address] WBC (Bld) [#/Vol] 9.2 10*3/uL Normal 3.8-11.6 [facility] Comment on above: Performed By: #### C MP, BNP, CBC ####[address] Comprehensive Metabolic Pane violeta 09-11-2024 Albumin [Mass/Vol] 4.2 g/dL Normal 3.5-5.7 [facility] Comment on above: Performed By: #### C MP, BNP, CBC ####[address] Albumin/Globulin [Mass ratio] 1.8 {ratio} Normal [facility] Comment on above: Performed By: #### C MP, BNP, CBC ####[address] ALP [Catalytic activity/Vol] 78 U/L Normal 34-104 [facility] Comment on above: Result Comment: PERF ORMED BY: [facility] [address] [place] [address] PATHOLOGIST [employer] AKILAH LOMBARDO M.D. Performed By: #### C MP, BNP, CBC ####[address] ALT [Catalytic activity/Vol] 19 U/L Normal 7-52 [facility] Comment on above: Performed By: #### C MP, BNP, CBC ####[address] [address] [facility] Anion gap [Moles/Vol] 13.5 mmol/L Normal 6.0-15.0 Th e [facility] Comment on above: Performed By: #### C MP, BNP, CBC ####[place] [id number] [facility] AST [Catalytic activity/Vol] 28 U/L Normal 13-39 [facility] Comment on above: Performed By: #### C MP, BNP, CBC ####[place] [id number] [facility] Bilirubin [Mass/Vol] 1.2 mg/dL High 0.3-1.0 [facility] Comment on above: Performed By: #### C MP, BNP, CBC ####[place] [id number] [facility] Calcium [Mass/Vol] 9.8 mg/dL Normal 8.6-10.3 [facility] Comment on above: Performed By: #### C MP, BNP, CBC ####[place] [id number] [facility] Chloride [Moles/Vol] 103 mmol/L Normal 98-107 [facility] Comment on above: Performed By: #### C MP, BNP, CBC ####[place] [id number] [facility] CO2 [Moles/Vol] 29.3 mmol/L Normal 21.0-31.0 [facility] Comment on above: Performed By: #### C MP, BNP, CBC ####[place] [id number] [facility] Creatinine [Mass/Vol] 1.39 mg/dL High 0.60-1.20 [facility] Comment on above: Performed By: #### C MP, BNP, CBC ####[place] [id number] [facility] Estimated GFR 38.123 mL/Min Normal [facility] Comment on above: Performed By: #### C MP, BNP, CBC ####[address] Globulin (S) [Mass/Vol] 2.4 g/dL Normal [facility] Comment on above: Performed By: #### C MP, BNP, CBC ####[address] Glucose [Mass/Vol] 111 mg/dL High 70-100 [facility] Comment on above: Result Comment: [facility] [place][note 2] Glucose Reference Range is dependent on time and content of last meal. Glucose of more than 200 mg/dL in a nonstressed, ambulatory subject supports the diagnosis of Diabetes Mellitus. ADA recommended reference range Performed By: #### C MP, BNP, CBC ####[address] Potassium [Moles/Vol] 3.8 mmol/L Normal 3.5-5.1 [facility] Comment on above: Performed By: #### C MP, BNP, CBC ####[address] Protein [Mass/Vol] 6.6 g/dL Normal 6.4-8.9 [facility] Comment on above: Performed By: #### C MP, BNP, CBC ####[address] Sodium [Moles/Vol] 142 mmol/L Normal 136-145 [facility] Comment on above: Performed By: #### C MP, BNP, CBC ####[address] Urea nitrogen [Mass/Vol] 29 mg/dL High 7-25 [facility] Comment on above: Performed By: #### C MP, BNP, CBC ####[address] Creatinine [Mass/volume] in Serum or PlasmaOrdered By: Jazmin العلي on 09-11-2024 Creatinine [Mass/Vol] Creatinine [Mass/v olume] in Serum or Plasma High 0.60-1.20 [facility] Eosinophils Auto (Bld) [#/Vo l]Ordered By: Jazmin العلي on 09-11-2024 Eosinophils (Bld) [#/Vol] Automated eosinophil count 0.0-0.45 [facility] Eosinophils/100 WBC Auto (Bl d)Ordered By: Jazmin العلي on 09-11-2024 Eosinophils/100 WBC (Bld) Automated eosinophil % . [facility] Erythrocyte distribution wid th Auto (RBC) [Ratio]Ordered By: Jazmin العلي on 09-11-2024 Erythrocyte distribution width (RBC) [Ratio] Erythrocyte distribution width [Ratio] by Automated count 11.9-15.3 [facility] Globulin Calc (S) [Mass/Vol] Ordered By: Jazmin العلي on 09-11-2024 Globulin (S) [Mass/Vol] Serum globulin measurement by calculation (mass/volume) [facility] Glucose [Mass/volume] in Ser um or PlasmaOrdered By: Jazmin العلي on 09-11-2024 Glucose [Mass/Vol] Glucose [Mass/volume ] in Serum or Plasma High 70-100 [facility] Comment on above: ADA recommended refe rence rangeRandom Glucose Reference Range is dependent on time and content of last meal. Glucose of more than 200 mg/dL in a nonstressed, ambulatory subject supports the diagnosis of Diabetes Mellitus. Hematocrit Auto (Bld) [Volum e fraction]Ordered By: Jazmin العلي on 09-11-2024 Hematocrit (Bld) [Volume fraction] Hematocrit [Volume Fraction] of Blood by Automated count 34.0-46.4 [facility] Hemoglobin [Mass/volume] in BloodOrdered By: Jazmin العلي 09-11-2024 Hemoglobin (Bld) [Mass/Vol] Hemoglobin [Mass/volume] in Blood 11.8-15.4 [facility] Leukocytes [#/volume] correc anne marie for nucleated erythrocytes in Blood by Automated counOrdered By: Jazmin العلي 09-11-2024 WBC corrected for nucl RBC Auto (Bld) [#/Vol] Leukocytes [#/volume] corrected for nucleated erythrocytes in Blood by Automated coun 3.8-11.6 [facility] Lymphocytes Auto (Bld) [#/Vo l]Ordered By: Jazmin العلي 09-11-2024 Lymphocytes (Bld) [#/Vol] Lymphocytes [#/volume] in Blood by Automated count 1.00-4.8 [facility] Lymphocytes/100 WBC Auto (Bl d)Ordered By: Jazmin العلي on 09-11-2024 Lymphocytes/100 WBC (Bld) Lymphocytes/100 leukocytes in Blood by Automated count . [facility] MCH Auto (RBC) [Entitic mass ]Ordered By: Jazmin العلي on 09-11-2024 MCH (RBC) [Entitic mass] MCH [Entitic mass] by Automated count 24.7-34.3 [facility] MCHC Auto (RBC) [Mass/Vol]Or dered By: Jazmin العلي on 09-11-2024 MCHC (RBC) [Mass/Vol] MCHC [Mass/volume] by Automated count 32.0-35.0 [facility] MCV Auto (RBC) [Entitic vol] Ordered By: Jazmin العلي on 09-11-2024 MCV (RBC) [Entitic vol] MCV [Entitic volume] by Automated count 80-100 [facility] Monocytes Auto (Bld) [#/Vol] Ordered By: Jazmin العلي on 09-11-2024 Monocytes (Bld) [#/Vol] Automated blood monocyte count 0.0-0.8 [facility] Monocytes/100 WBC Auto (Bld) Ordered By: Jazmin العلي on 09-11-2024 Monocytes/100 WBC (Bld) Automated monocyte % . [facility] Natriuretic peptide B [Mass/ Vol]Ordered By: Jazmin العلي on 09-11-2024 Natriuretic peptide B (Bld) [Mass/Vol] BNP ser/plas High 5-100 [facility] Neutrophils Auto (Bld) [#/Vo l]Ordered By: Jazmin العلي on 09-11-2024 Neutrophils (Bld) [#/Vol] Neutrophils [#/volume] in Blood by Automated count 1.8-7.7 [facility] Neutrophils/100 WBC Auto (Bl d)Ordered By: Jazmin العلي on 09-11-2024 Neutrophils/100 WBC (Bld) Automated neutrophil % . [facility] No Panel InformationOrdered By: Jazmin العلي on 09-11-2024 Estimated GFR (CKD-EPI) 38.123 mL/Min [facility] Creatinine Clearance (Chem N/A [facility] Nucleated erythrocytes [Pres ence] in Blood by Automated countOrdered By: Jazmin العلي on 09-11-2024 Nucleated RBC Auto Ql (Bld) Nucleated erythrocytes [Presence] in Blood by Automated count 0-0.5 [facility] Platelet mean volume Auto (B ld) [Entitic vol]Ordered By: Jazmin العلي on 09-11-2024 Platelet mean volume (Bld) [Entitic vol] Platelet mean volume [Entitic volume] in Blood by Automated count 6.3-10.7 [facility] Platelets Auto (Bld) [#/Vol] Ordered By: Jazmin العلي on 09-11-2024 Platelets (Bld) [#/Vol] Platelets [#/volume] in Blood by Automated count 150-450 [facility] Potassium [Moles/volume] in Serum or PlasmaOrdered By: Jazmin العلي 09-11-2024 Potassium [Moles/Vol] Potassium [Moles/v olume] in Serum or Plasma 3.5-5.1 [facility] Protein [Mass/volume] in Ser um or PlasmaOrdered By: Jazmin العلي 09-11-2024 Protein [Mass/Vol] Protein [Mass/volume ] in Serum or Plasma 6.4-8.9 [facility] RBC Auto (Bld) [#/Vol]Ordere d By: Jazmin العلي on 09-11-2024 RBC (Bld) [#/Vol] Erythrocytes [#/volu me] in Blood by Automated count 3.60-5.00 [facility] Serum or plasma albumin/glob ulin mass ratioOrdered By: Jazmin العلي 09-11-2024 Albumin/Globulin [Mass ratio] Serum or plasma albumin/globulin mass ratio [facility] Serum or plasma anion gap de terminationOrdered By: Jazmin العلي 09-11-2024 Anion gap [Moles/Vol] Serum or plasma an ion gap determination 6.0-15.0 [facility] Sodium [Moles/volume] in Ser um or PlasmaOrdered By: Jazmin العلي 09-11-2024 Sodium [Moles/Vol] Sodium [Moles/volume ] in Serum or Plasma 136-145 [facility] Urea nitrogen [Mass/volume] in Serum or PlasmaOrdered By: Jazmin العلي 09-11-2024 Urea nitrogen [Mass/Vol] Urea nitrogen [Mass/volume] in Serum or Plasma High 03-13 [facility] WBC Auto (Bld) [#/Vol]Ordere d By: Jazmin العلي on 09-11-2024 WBC (Bld) [#/Vol] Leukocytes [#/volume ] in Blood by Automated count 3.8-11.6 [facility] X-ray reportOrdered By: Juan Diego Carson on 09-11-2024 Study report [facility] Main [place] [id number] XRay Report Signed Patient: Austin Golden MR#: [id number] : 1940 Acct:[id number] Age/Sex: 83 / F ADM Date: 5 Loc: XD Room: Type: [facility] Attending Dr: Jazmin العلي DO Copies to: Jazmin العلي DO~ Ordering Provider: Jazmin العلي DO Date of Service: 09/11/24 XR/XR ribs RT min 3V w CXR1V*: S20.211A - Contusion of right front wall of thorax, initi... PA CHEST WITH 4 VIEWS RIGHT RIBS: CLINICAL HISTORY: Shortness of breath right-sided chest pain for 3 days. 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 Heart is normal size. Small bilateral pleural effusions. No pneumothorax or free air. Additional views of the right ribs demonstrate gross demineralization without displaced fracture. XR/XR ribs RT min 3V w CXR1V* IMPRESSION: SMALL BILATERAL PLEURAL EFFUSIONS. NO DISPLACED RIB FRACTURE IS SEEN. Impression dictated by: Nnamdi Carson Jr., D.O.09/11/2024 3:37 PM Dictation Location: [place] [address] Transcribed By: [facility] 09/11/24 153 Dictated By: Nnamdi Carson Jr, DO 09/11/24 153 Signed By: 09/11/24 1537 [facility] XR ribs RT min 3V w CXR1V*on 09-11-2024 XR ribs RT min 3V w CXR1V* [facility] Main [address] [address] XRay Report Signed Patient: Austin Golden MR#: [id number] 8 : 1940 Acct:[id number] Age/Sex: 83 / F ADM Date: 09/11/24 Loc: XD Room: Type: [facility] Attending Dr: Jazmin العلي DO Copies to: Jazmin العلي DO Ordering Provider: Jazmin العلي DO Date of Service: 09/11/24 XR/XR ribs RT min 3V w CXR1V*: S20.211A - Contusion of right front wall of thorax, initi... PA CHEST WITH 4 VIEWS RIGHT RIBS: CLINICAL HISTORY: Shortness of breath right-sided chest pain for 3 days. 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 Heart is normal size. Small bilateral pleural effusions. No pneumothorax or free air. Additional views of the right ribs demonstrate gross demineralization without displaced fracture. XR/XR ribs RT min 3V w CXR1V* IMPRESSION: SMALL BILATERAL PLEURAL EFFUSIONS. NO DISPLACED RIB FRACTURE IS SEEN. Impression dictated by: Nnamdi Carson Jr., D.O.09/11/2024 3:37 PM Dictation Location: [place] [address] Transcribed By: [facility] 09/11/24 1537 Dictated By: Nnamdi Carson Jr, DO 09/11/24 1536 Signed By: 09/11/24 1537 Normal [facility] Influenza virus B Ag [Presen ce] in Upper respiratory specimen by Rapid immunoassayon 09-09-2024 FLUBV Ag IA.rapid Ql (Nph) Influenza virus B Ag [Presence] in Upper respiratory specimen by Rapid immunoassay [facility] No Panel Informationon 09-09 Influenza Type A (Rapid) Negative [facility] POC SARS CoV-2 Antigen Negative [facility] ECG 12 [place]on 09-05-2024 Atrial flutter with heart rate of [address]-T changes and intraventricular conduction delay [facility] Work Phone: X-ray reportOrdered By: Jadiel Borja on 09-05-2024 Study report [facility] Main [address] [address] XRay Report Signed Patient: Austin Golden MR#: [id number] : 1940 Acct:[id number] Age/Sex: 83 / F ADM Date: 5 Loc: XD Room: Type: REG CLI Attending Dr: Yesica Astudillo MD Copies to: Yesica Astudillo MD~ Ordering Provider: Yesica Astudillo MD Date of Service: 09/05/24 XR/XR thoracic spine 2V: PAIN ([id number]) XR/XR cervical spine 5V*: PAIN 5 views of thecervical spine HISTORY: Bilateral neck pain with radiation to the back. COMPARISON: None POSTOPERATIVE CHANGES: None BONY ALIGNMENT: Adequate HYPERMOBILITY::No bending imaging. LISTHESIS:Multilevel mild degenerative listhesis FRACTURE: None DISC DEGENERATION: Extensive multilevel spondylosis. FACETS: Extensive multilevel facet degeneration FORAMEN: C3-T1 bilateral bony neural foraminal narrowing DENS: Intact CRANIOCERVICAL JUNCTION: Unremarkable SOFT TISSUES: Unremarkable XR/XR cervical spine 5V* IMPRESSION: Extensive multilevel cervical spine degenerative changes. 2 views of thoracic spine Cardiac device intact. Mild basilar pleural-parenchymal changes. Multilevel thoracic spondylosis. Diffuse osteopenia. No acute compression fracture. Adequate thoracic kyphosis. IMPRESSION: Extensive thoracic spondylosis and diffuse osteopenia. Impression dictated by: Juanito Borja M.D.09/05/2024 4:55 PM Dictation Location: [place] [address] Transcribed By: [facility] 09/05/241654 Dictated By: Juanito Borja DO 09/05/24 165 Signed By: 09/05/24 1655 [facility] XR thoracic spine 2Von 09-05 XR thoracic spine 2V [facility] [place] [address] [place] [id number] XRay Report Signed Patient: Austin Golden MR#: [id number] 8 : 1940 Acct:[id number] Age/Sex: 83 / F ADM Date: 09/05/24 Loc: XD Room: Type: [facility] CLI Attending Dr: Yesica Astudillo MD Copies to: Yesica Astudillo MD Ordering Provider: Yesica Astudillo MD Date of Service: 09/05/24 XR/XR thoracic spine 2V: PAIN ([id number]) XR/XR cervical spine 5V*: PAIN 5 views of thecervical spine HISTORY: Bilateral neck pain with radiation to the back. COMPARISON: None POSTOPERATIVE CHANGES: None BONY ALIGNMENT: Adequate HYPERMOBILITY::No bending imaging. LISTHESIS:Multilevel mild degenerative listhesis FRACTURE: None DISC DEGENERATION: Extensive multilevel spondylosis. FACETS: Extensive multilevel facet degeneration FORAMEN: C3-T1 bilateral bony neural foraminal narrowing DENS: Intact CRANIOCERVICAL JUNCTION: Unremarkable SOFT TISSUES: Unremarkable XR/XR cervical spine 5V* IMPRESSION: Extensive multilevel cervical spine degenerative changes. 2 views of thoracic spine Cardiac device intact. Mild basilar pleural-parenchymal changes. Multilevel thoracic spondylosis. Diffuse osteopenia. No acute compression fracture. Adequate thoracic kyphosis. IMPRESSION: Extensive thoracic spondylosis and diffuse osteopenia. Impression dictated by: Juanito Borja M.D.09/05/2024 4:55 PM Dictation Location: [place] Transcribed By: [facility] 09/05/241654 Dictated By: Juanito Borja DO 09/05/241650 Signed By: 09/05/241654 Normal [facility] Progress Noteson 08-18-2024 [employer] Authentication Interface Message Text Documentation: Mode: Telephone Patient Patient Work Phone: Patient Cell Preferred phone: [phone] Consent: I confirmed patient understanding of the risks and benefits of telehealth visits and obtained consent to proceed with the telehealth visit. Location of Patient: Home of patient Department of Gastroenterology and Hepatology GI Clinic Follow Up Note PCP: No primary care provider on file. Last GI Visit: Most recent visit in Gastroenterology was on 07/22/2024 with Katie Yung MD Subjective: Austin Golden is a 83 year old female with a past medical history significant for prior raul, afib on xarelto, presented for follow-up of EGJOO. She's actually feeling great. She had trouble swallowing for 3 years. But all of a sudden for the past month or so she has been able to keep food down and eat normally without any issues. She was in the hospital about 3 weeks ago and was vomiting and bring things up and so it hasn't really been a month she's been feeling better. She started on amiodarone and diltiazem recently. Past medical, surgical, family and social histories reviewed and updated as appropriate. Review Of Systems Positives as noted in HPI. All other systems were reviewed and negative. Current Medications Current Outpatient Medications Medication Sig Dispense Refill rOPINIRole (REQUIP) 1 MG tablet Take 1 mg by mouth at bedtime. atorvastatin (LIPITOR) 40 mg tablet Take 40 mg by mouth daily. amiodarone (CORDARONE) 200 MG tablet Take 200 mg by mouth daily. buPROPion ER (WELLBUTRIN XL) 150 MG XL tablet Take 150 mg by mouth daily. Multiple Vitamin (Multi Vitamin Daily) TABS Take 1 Tablet by mouth daily. Cholecalciferol (vitamin D3) 50 MCG (2000 UT) CAPS capsule Take 50 mcg by mouth daily. digoxin (LANOXIN) 125 MCG tablet Take 0.125 mg by mouth daily. furosemide (LASIX) 20 MG tablet Take 20 mg by mouth daily. DilTIAZem (CARDIZEM CD) 120 MG ER capsule Take 180 mg by mouth daily. Xarelto 15 MG tablet Take 15 mg by mouth at bedtime. pantoprazole (PROTONIX) 40 MG tablet Take 40 mg by mouth 2 times daily. magnesium oxide (MAG-OX) 400 mg (240 mg) tablet Take 400 mg by mouth daily. calcium carbonate 1500 (600 Ca) MG tablet Take 600 mg by mouth daily. No current facility-administered medications for this visit. Physical Exam There were no vitals taken for this visit. Labs and Imaging CBC (last 3 years, up to 8 values) No lab values to display. BMP (last 3 years, up to 8 values) No lab values to display. LFT's (last 3 years, up to 8 values) No lab values to display. No results found for: INR Assessment and Plan Austin Chalion Golden is a 83 year old female with a past medical history significant for prior raul, afib on xarelto, presented for follow-up of EGJOO. # EGJOO Shown on TBE where tablet is held up in hernia, small hernia, raul in tact which is likely the cause of EGJOO. However, her symptoms have resolved recently. She was recently started on diltiazem and possible this could be related to the resolution of her symptoms of EGJOO. Regardless, there is no further intervention needed at this time as her symptoms have improved so much. --she will reach out to me should symptoms worsen again. Katie Yung MD Division of Gastroenterology AND Hepatology [facility] 08/18/24, 5:01 PM Normal [facility] Telephone Encounteron 2023 [employer] Authentication Interface Message Text Situation: Call back Background: Pt would like to have a phone appointment with her doctor. Assessment: Please Advise Recommendation: Pt can be reached at Phone numbers Normal [facility] Progress Noteson 07-29-2024 [employer] Authentication Interface Message Text This encounter was opened in error. Patient was a No-Show (she was admitted to hospital at time of this appt). Please disregard. Normal [facility] Telephone Encounteron 2023 [employer] Authentication Interface Message Text Pt calling to reschedule the Televisit with Dr. Katie Yung that she missed on 07/22/2024 and the tree is not providing the option of televisits. Pt states that she was in the hospital for heart issues. Please return Pt's call at: . Thank you Normal The [facility] Basic Metabolic Panelon 12-0 Anion gap [Moles/Vol] 10.8 mmol/L Normal 6.0-15.0 Th e [facility] Comment on above: Performed By: #### B MP, MG ####[place] [address] [address] Calcium [Mass/Vol] 8.6 mg/dL Normal 8.6-10.3 [facility] Comment on above: Performed By: #### B MP, MG ####[facility] [place] [id number] [facility] Chloride [Moles/Vol] 106 mmol/L Normal 98-107 [facility] Comment on above: Performed By: #### B MP, MG ####[facility] [place] [id number] [facility] CO2 [Moles/Vol] 29.0 mmol/L Normal 21.0-31.0 [facility] Comment on above: Performed By: #### B MP, MG ####[address] Creatinine [Mass/Vol] 1.25 mg/dL High 0.60-1.20 [facility] Comment on above: Performed By: #### B MP, MG ####[address] Creatinine Clr Calc Pharmacy 30.08 Normal [facility] Comment on above: Performed By: #### B MP, MG ####[address] Estimated GFR 43.302 mL/Min Normal [facility] Comment on above: Performed By: #### B MP, MG ####[address] Glucose [Mass/Vol] 102 mg/dL High 70-100 [facility] Comment on above: Result Comment: [facility] [place][note 2] Glucose Reference Range is dependent on time and content of last meal. Glucose of more than 200 mg/dL in a nonstressed, ambulatory subject supports the diagnosis of Diabetes Mellitus. ADA recommended reference range Performed By: #### B MP, MG ####[address] Potassium [Moles/Vol] 3.8 mmol/L Normal 3.5-5.1 [facility] Comment on above: Performed By: #### B MP, MG ####[address] Sodium [Moles/Vol] 142 mmol/L Normal 136-145 [facility] Comment on above: Performed By: #### B MP, MG ####[address] Urea nitrogen [Mass/Vol] 18 mg/dL Normal 7-25 [facility] Comment on above: Performed By: #### B MP, MG ####[address] Calcium [Mass/volume] in Ser um or PlasmaOrdered By: Fahad Kim on 07-24-2024 Calcium [Mass/Vol] Calcium [Mass/volume ] in Serum or Plasma 8.6-10.3 [facility] Carbon dioxide, total [Moles /volume] in Serum or PlasmaOrdered By: Fahad Kim on 07-24-2024 CO2 [Moles/Vol] Carbon dioxide, tota l [Moles/volume] in Serum or Plasma 21.0-31.0 [facility] Chloride [Moles/volume] in S vaughn or PlasmaOrdered By: Fahad Kim on 07-24-2024 Chloride [Moles/Vol] Chloride [Moles/vol ume] in Serum or Plasma 98-107 [facility] Creatinine [Mass/volume] in Serum or PlasmaOrdered By: Fahad Kim on 07-24-2024 Creatinine [Mass/Vol] Creatinine [Mass/v olume] in Serum or Plasma High 0.60-1.20 [facility] Glucose [Mass/volume] in Ser um or PlasmaOrdered By: Fahad Kim on 07-24-2024 Glucose [Mass/Vol] Glucose [Mass/volume ] in Serum or Plasma High 70-100 [facility] Comment on above: ADA recommended refe rence rangeRandom Glucose Reference Range is dependent on time and content of last meal. Glucose of more than 200 mg/dL in a nonstressed, ambulatory subject supports the diagnosis of Diabetes Mellitus. Magnesiumon 07-24-2024 Magnesium [Mass/Vol] 1.9 mg/dL Normal 1.9-2.7 [facility] Comment on above: Result Comment: PERF ORMED BY: [facility] [address] [place] [address] PATHOLOGIST [employer] AKILAH LOMBARDO M.D. Performed By: #### B MG LESTER ####[facility] [address] [place] [address] [facility] Magnesium [Mass/volume] in S vaughn or PlasmaOrdered By: Fahad Kim on 07-24-2024 Magnesium [Mass/Vol] Magnesium [Mass/vol ume] in Serum or Plasma 1.9-2.7 [facility] No Panel InformationOrdered By: Fahad Kim on 07-24-2024 Estimated GFR (CKD-EPI) 43.302 mL/Min [facility] Creatinine Clearance (Chem 30.08 [facility] Potassium [Moles/volume] in Serum or PlasmaOrdered By: Fahad Kim on 07-24-2024 Potassium [Moles/Vol] Potassium [Moles/v olume] in Serum or Plasma 3.5-5.1 [facility] Serum or plasma anion gap de terminationOrdered By: Fahad Kim on 07-24-2024 Anion gap [Moles/Vol] Serum or plasma an ion gap determination 6.0-15.0 [facility] Sodium [Moles/volume] in Ser um or PlasmaOrdered By: Fahad Kim on 07-24-2024 Sodium [Moles/Vol] Sodium [Moles/volume ] in Serum or Plasma 136-145 [facility] Urea nitrogen [Mass/volume] in Serum or PlasmaOrdered By: Fahad Kim on 07-24-2024 Urea nitrogen [Mass/Vol] Urea nitrogen [Mass/volume] in Serum or Plasma 7-25 [facility] Basic Metabolic Panelon 12-0 Anion gap [Moles/Vol] 11.2 mmol/L Normal 6.0-15.0 Th e [facility] Comment on above: Performed By: #### Elvira Joseph, BMP ####[facility] [place] [id number] [facility] Calcium [Mass/Vol] 8.7 mg/dL Normal 8.6-10.3 [facility] Comment on above: Performed By: #### M G, BMP ####[facility] [place] [address] [place] Chloride [Moles/Vol] 104 mmol/L Normal 98-107 [facility] Comment on above: Performed By: #### Elvira Joseph, BMP ####[facility] [place] [address] [place] CO2 [Moles/Vol] 28.7 mmol/L Normal 21.0-31.0 [facility] Comment on above: Performed By: #### Elvira Joseph, BMP ####[place] [id number] [facility] Creatinine [Mass/Vol] 1.26 mg/dL High 0.60-1.20 [facility] Comment on above: Performed By: #### M G, BMP ####[address] [address] [facility] Creatinine Clr Calc Pharmacy 29.57 Normal [facility] Comment on above: Performed By: #### Elvira G, BMP ####[address] [place] [address] [facility] Estimated GFR 42.890 mL/Min Normal [facility] Comment on above: Performed By: #### Elvira Joseph, BMP ####[place] [id number] [facility] Glucose [Mass/Vol] 92 mg/dL Normal 70-100 [facility] Comment on above: Result Comment: [facility] [place][note 2] Glucose Reference Range is dependent on time and content of last meal. Glucose of more than 200 mg/dL in a nonstressed, ambulatory subject supports the diagnosis of Diabetes Mellitus. ADA recommended reference range Performed By: #### Elvira Joseph, BMP ####[place] [id number] [facility] Potassium [Moles/Vol] 3.9 mmol/L Normal 3.5-5.1 [facility] Comment on above: Performed By: #### Elvira Joseph, BMP ####[place] [id number] [facility] Sodium [Moles/Vol] 140 mmol/L Normal 136-145 [facility] Comment on above: Performed By: #### Elvira Joseph, BMP ####[place] [id number] [facility] Urea nitrogen [Mass/Vol] 19 mg/dL Normal 7-25 [facility] Comment on above: Performed By: #### Elvira G, BMP ####[address] [address] [facility] Magnesiumon 07-23-2024 Magnesium [Mass/Vol] 1.9 mg/dL Normal 1.9-2.7 [facility] Comment on above: Result Comment: PERF ORMED BY: [facility] [address] [place] [id number] PATHOLOGIST [employer]BER AKILAH LOMBARDO M.D. Performed By: #### M Jake, BMP ####[facility] [place] [address] [facility] Alanine aminotransferase [En zymatic activity/volume] in Serum or PlasmaOrdered By: Aroldo Peña on 07-22-2024 ALT [Catalytic activity/Vol] Alanine aminotransferase [Enzymatic activity/volume] in Serum or Plasma 752 [facility] Albumin [Mass/volume] in Ser um or Plasma by Bromocresol green (BCG) dye binding methoOrdered By: Aroldo Peña on 07-22-2024 Albumin BCG dye [Mass/Vol] Albumin [Mass/volume] in Serum or Plasma by Bromocresol green (BCG) dye binding metho Low 3.5-5.7 [facility] Alkaline phosphatase [Enzyma tic activity/volume] in Serum or PlasmaOrdered By: Aroldo Peña on 07-22-2024 ALP [Catalytic activity/Vol] Alkaline phosphatase [Enzymatic activity/volume] in Serum or Plasma 34-104 [facility] Aspartate aminotransferase [ Enzymatic activity/volume] in Serum or PlasmaOrdered By: Aroldo Peña on 07-22-2024 AST [Catalytic activity/Vol] Aspartate aminotransferase [Enzymatic activity/volume] in Serum or Plasma High 13-39 [facility] Bilirubin.total [Mass/volume ] in Serum or PlasmaOrdered By: Aroldo Peña on 07-22-2024 Bilirubin [Mass/Vol] Bilirubin.total [Mass/volume] in Serum or Plasma 0.3-1.0 [facility] Comprehensive Metabolic Pane violeta 07-22-2024 Albumin [Mass/Vol] 3.2 g/dL Low 3.5-5.7 [facility] Comment on above: Performed By: #### C MP ####[facility] [place] [id number] [facility] Albumin/Globulin [Mass ratio] 2.0 {ratio} Normal [facility] Comment on above: Performed By: #### C MP ####[place] [id number] [facility] ALP [Catalytic activity/Vol] 48 U/L Normal 34-104 [facility] Comment on above: Performed By: #### C MP ####[place] [id number] [facility] ALT [Catalytic activity/Vol] 28 U/L Normal 7-52 [facility] Comment on above: Performed By: #### C MP ####[place] [id number] [facility] Anion gap [Moles/Vol] 11.0 mmol/L Normal 6.0-15.0 Th e [facility] Comment on above: Performed By: #### C MP ####[address] AST [Catalytic activity/Vol] 40 U/L High 13-39 [facility] Comment on above: Performed By: #### C MP ####[address] Bilirubin [Mass/Vol] 0.6 mg/dL Normal 0.3-1.0 [facility] Comment on above: Performed By: #### C MP ####[place] [id number] [facility] Calcium [Mass/Vol] 8.6 mg/dL Normal 8.6-10.3 [facility] Comment on above: Performed By: #### C MP ####[place] [id number] [facility] Chloride [Moles/Vol] 105 mmol/L Normal 98-107 [facility] Comment on above: Performed By: #### C MP ####[place] [id number] [facility] CO2 [Moles/Vol] 28.7 mmol/L Normal 21.0-31.0 [facility] Comment on above: Performed By: #### C MP ####[place] [id number] [facility] Creatinine [Mass/Vol] 1.20 mg/dL Normal 0.60-1.20 [facility] Comment on above: Performed By: #### C MP ####[address] Creatinine Clr Calc Pharmacy 31.05 Normal [facility] Comment on above: Result Comment: PERF ORMED BY: [facility] [address] [place] [address] PATHOLOGIST [employer] AKILAH LOMBARDO M.D. Performed By: #### C MP ####[address] Estimated GFR 45.476 mL/Min Normal [facility] Comment on above: Performed By: #### C MP ####[address] Globulin (S) [Mass/Vol] 1.6 g/dL Normal [facility] Comment on above: Performed By: #### C MP ####[address] Glucose [Mass/Vol] 90 mg/dL Normal 70-100 [facility] Comment on above: Result Comment: [place] Glucose Reference Range is dependent on time and content of last meal. Glucose of more than 200 mg/dL in a nonstressed, ambulatory subject supports the diagnosis of Diabetes Mellitus. ADA recommended reference range Performed By: #### C MP ####[address] Potassium [Moles/Vol] 3.7 mmol/L Normal 3.5-5.1 [facility] Comment on above: Performed By: #### C MP ####[address] Protein [Mass/Vol] 4.8 g/dL Low 6.4-8.9 [facility] Comment on above: Performed By: #### C MP ####[place] [id number] [facility] Sodium [Moles/Vol] 141 mmol/L Normal 136-145 [facility] Comment on above: Performed By: #### C MP ####[place] [id number] [facility] Urea nitrogen [Mass/Vol] 17 mg/dL Normal 7-25 [facility] Comment on above: Performed By: #### C MP ####[place] [id number] [facility] Globulin Calc (S) [Mass/Vol] Ordered By: Aroldo Peña on 07-22-2024 Globulin (S) [Mass/Vol] Serum globulin measurement by calculation (mass/volume) [facility] Protein [Mass/volume] in Ser um or PlasmaOrdered By: Aroldo Peña on 07-22-2024 Protein [Mass/Vol] Protein [Mass/volume ] in Serum or Plasma Low 6.4-8.9 [facility] Serum or plasma albumin/glob ulin mass ratioOrdered By: Aroldo Peña on 07-22-2024 Albumin/Globulin [Mass ratio] Serum or plasma albumin/globulin mass ratio [facility] Troponin I High Sensitivityo n 07-22-2024 Troponin I High Sensitivity 54.4 pg/mL Off scale high 0.0-15.0 [facility] Comment on above: Result Comment: Crit ical Result : Called to and read back by: PAYTON CESPEDES at: 07/22/2024 05:09:56 by:[id number] PERFORMED BY: [facility] [address] [facility] [place] [address] PATHOLOGIST [employer]BER AKILAH LOMBARDO M.D. Performed By: #### H S TROP ####[place] [id number] [facility] Troponin I.cardiac [Mass/vol ume] in Serum or Plasma by Detection limit <= 0.01 ng/Ordered By: Aroldo Peña on 07-22-2024 Troponin I.cardiac DL <= 0.01 ng/mL [Mass/Vol] Troponin I.cardiac [Mass/volume] in Serum or Plasma by Detection limit <= 0.01 ng/ Critically high 0.0-15.0 [facility] Comment on above: Critical Result : Ca lled to and read back by: PAYTON CESPEDES at: 07/22/2024 05:09:56 by:[id number] Basic Metabolic Panelon 12-0 Anion gap [Moles/Vol] 11.0 mmol/L Normal 6.0-15.0 Th e [facility] Comment on above: Performed By: #### B MP, HS TROP ####[address] [place] [address] [facility] Calcium [Mass/Vol] 8.8 mg/dL Normal 8.6-10.3 [facility] Comment on above: Performed By: #### B MP, HS TROP ####[address] [place] [address] [facility] Chloride [Moles/Vol] 104 mmol/L Normal 98-107 [facility] Comment on above: Performed By: #### B MP, HS TROP ####[address] [address] [facility] CO2 [Moles/Vol] 28.5 mmol/L Normal 21.0-31.0 [facility] Comment on above: Performed By: #### B MP, HS TROP ####[address] [address] [facility] Creatinine [Mass/Vol] 1.27 mg/dL High 0.60-1.20 [facility] Comment on above: Performed By: #### B MP, HS TROP ####[address] [address] [facility] Creatinine Clr Calc Pharmacy 29.34 Normal [facility] Comment on above: Result Comment: PERF ORMED BY: [facility] [address] [place] [address] PATHOLOGIST [employer]BER AKILAH LOMBARDO M.D. Performed By: #### B MP, HS TROP ####[address] [address] [facility] Estimated GFR 42.486 mL/Min Normal [facility] Comment on above: Performed By: #### B MP, HS TROP ####[address] [address] [facility] Glucose [Mass/Vol] 114 mg/dL High 70-100 [facility] Comment on above: Result Comment: [facility] [place][note 2] Glucose Reference Range is dependent on time and content of last meal. Glucose of more than 200 mg/dL in a nonstressed, ambulatory subject supports the diagnosis of Diabetes Mellitus. ADA recommended reference range Performed By: #### B MP, HS TROP ####[facility] [address] [place] [address] [facility] Potassium [Moles/Vol] 3.5 mmol/L Normal 3.5-5.1 [facility] Comment on above: Performed By: #### B MP, HS TROP ####[facility] [place] [id number] [facility] Sodium [Moles/Vol] 140 mmol/L Normal 136-145 [facility] Comment on above: Performed By: #### B MP, HS TROP ####[facility] [place] [id number] [facility] Urea nitrogen [Mass/Vol] 18 mg/dL Normal 7-25 [facility] Comment on above: Performed By: #### B MP, HS TROP ####[facility] [place] [id number] [place] Basophils Auto (Bld) [#/Vol] on 07-21-2024 Basophils (Bld) [#/Vol] Automated basophil count 0.0-0.1 [facility] Basophils/100 WBC Auto (Bld) on 07-21-2024 Basophils/100 WBC (Bld) Automated basophil % 0.2-2.0 [facility] ECG 12 lead ECGon 07-21-2024 ECG 12 lead ECG [facility] [address] [place] [address] Electrocardiograph Report Signed Patient: Austin Golden MR#: [id number] 8 : 1940 Acct:[id number] Age/Sex: 83 / F ADM Date: 07/21/24 Loc: Room: [address] [place] [address] Type: ADM IN Attending Dr: Fahad Kim DO Ordering Provider: Isabel Quach APRN Date of Service: 07/21/2410/13/2155 ECG/ECG 12 lead ECG: chest pain Copies to: Test Reason : Blood Pressure : */* mmHG Vent. Rate : 94 BPM Atrial Rate : 94 BPM P-R Int : 232 ms QRS Dur : 126 ms QT Int : 376 ms P-R-T Axes : * 56 203 degrees QTcB Int : 470 ms Sinus rhythm with marked sinus arrhythmia with 1st degree AV block with frequent ventricular-paced complexes Nonspecific intraventricular block Nonspecific ST and T wave abnormality Abnormal ECG When compared with ECG of 02-Jul-2024 11:49, Electronic ventricular 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 Electronic atrial pacemaker Confirmed by Vipin Awad ([id number]) on 07/22/2024 6:59:31 PM Referred By: Electronically Signed By: Vipin Awad Transcribed By: MUS Signed By Vipin Awad MD 07/22/24 1833 Normal [facility] Eosinophils/100 WBC Auto (Bl d)on 07-21-2024 Eosinophils/100 WBC (Bld) Automated eosinophil % 0.9-7.0 [facility] Erythrocyte distribution wid th Auto (RBC) [Ratio]on 07-21-2024 Erythrocyte distribution width (RBC) [Ratio] Erythrocyte distribution width [Ratio] by Automated count 11.0-15.0 [facility] Estimated glomerular filtrat ion rate (GFR) non- Americanon 07-21-2024 GFR/1.73 sq M.predicted among non-blacks MDRD (S/P/Bld) [Vol rate/Area] Estimated glomerular filtration rate (GFR) non- Low >=60 mL/min/1.7 3m 2 [facility] Globulin Calc (S) [Mass/Vol] on 07-21-2024 Globulin (S) [Mass/Vol] Serum globulin measurement by calculation (mass/volume) [facility] Hematocrit Auto (Bld) [Volum e fraction]on 07-21-2024 Hematocrit (Bld) [Volume fraction] Hematocrit [Volume Fraction] of Blood by Automated count 36.0-48.0 [facility] Hemoglobin [Mass/volume] in Bloodon 07-21-2024 Hemoglobin (Bld) [Mass/Vol] Hemoglobin [Mass/volume] in Blood 12.0-16.0 [facility] INR in Platelet poor plasma by Coagulation assayOrdered By: Aroldo Peña on 07-21-2024 INR Coag (PPP) [Relative time] INR in Platelet poor plasma by Coagulation assay [facility] Comment on above: INR Therapeutic Rang [...] with mechanical heart valves: 3 - 4.5 Laboratory - Chemistry and C hemistry - challengeon 07-21-2024 Albumin [Mass/Vol] 3.3 g/dL Low 3.4-5.0 [facility] ALP [Catalytic activity/Vol] 73 U/L 46-116 [facility] ALT [Catalytic activity/Vol] 45 U/L 14-59 [facility] Amylase [Catalytic activity/Vol] 21 U/L Low 25-115 [facility] AST [Catalytic activity/Vol] 40 U/L High 15-37 [facility] Bilirubin [Mass/Vol] 0.8 mg/dL 0.2-1.0 [facility] Bilirubin.direct [Mass/Vol] 0.3 mg/dL High 0.0-0.2 [facility] Calcium [Mass/Vol] 10.1 mg/dL 8.5-10.1 [facility] Chloride [Moles/Vol] 103 mmol/L 98-107 [facility] CO2 [Moles/Vol] 25.6 mmol/L 21.0-32.0 [facility] Creatinine [Mass/Vol] 1.65 mg/dL High 0.55-1.02 [facility] GFR/1.73 sq M.predicted MDRD (S/P/Bld) [Vol rate/Area] 36 mL/min/{1.73_m2} Low >=60 mL/min/1.7 3m 2 [facility] Glucose [Mass/Vol] 106 mg/dL 74-106 [facility] Lipase [Catalytic activity/Vol] 23.0 U/L 16.0-77.0 [facility] Potassium [Moles/Vol] 3.9 mmol/L 3.5-5.1 [facility] Protein [Mass/Vol] 6.6 g/dL 6.4-8.2 [facility] Sodium [Moles/Vol] 142 mmol/L 136-145 [facility] Urea nitrogen [Mass/Vol] 18.0 mg/dL 7.0-18.0 [facility] Urea nitrogen/Creatinine [Mass ratio] 10.9 mg/mg [facility] Laboratory - Hematology and Cell countson 07-21-2024 Immature granulocytes/100 WBC (Bld) 0.3 % 0.0-0.5 [facility] Leukocytes [#/volume] correc anne marie for nucleated erythrocytes in Blood by Automated counon 07-21-2024 WBC corrected for nucl RBC Auto (Bld) [#/Vol] Leukocytes [#/volume] corrected for nucleated erythrocytes in Blood by Automated coun High 4.0-11.0 [facility] Lymphocytes Auto (Bld) [#/Vo l]on 07-21-2024 Lymphocytes (Bld) [#/Vol] Lymphocytes [#/volume] in Blood by Automated count 1.2-3.8 [facility] Lymphocytes/100 WBC Auto (Bl d)on 07-21-2024 Lymphocytes/100 WBC (Bld) Lymphocytes/100 leukocytes in Blood by Automated count Low 20.5-60.0 [facility] MCH Auto (RBC) [Entitic mass ]on 07-21-2024 MCH (RBC) [Entitic mass] MCH [Entitic mass] by Automated count 26.7-34.0 [facility] MCHC Auto (RBC) [Mass/Vol]on 07-21-2024 MCHC (RBC) [Mass/Vol] MCHC [Mass/volume] by Automated count 29.9-35.2 [facility] MCV Auto (RBC) [Entitic vol] on 07-21-2024 MCV (RBC) [Entitic vol] MCV [Entitic volume] by Automated count 81.0-99.0 [facility] Magnesiumon 07-21-2024 Magnesium [Mass/Vol] 2.0 mg/dL Normal 1.9-2.7 [facility] Comment on above: Result Comment: PERF ORMED BY: [facility] [address] [place] [id number] PATHOLOGIST [employer]BER AKILAH LOMBARDO M.D. Performed By: #### M Jake, PT ####[facility] [address] [place] [address] [facility] Monocytes Auto (Bld) [#/Vol] on 07-21-2024 Monocytes (Bld) [#/Vol] Automated blood monocyte count 0.3-0.8 [facility] Monocytes/100 WBC Auto (Bld) on 07-21-2024 Monocytes/100 WBC (Bld) Automated monocyte % 1.7-12.0 [facility] Neutrophils Auto (Bld) [#/Vo l]on 07-21-2024 Neutrophils (Bld) [#/Vol] Neutrophils [#/volume] in Blood by Automated count High 1.4-6.5 [facility] Neutrophils/100 WBC Auto (Bl d)on 07-21-2024 Neutrophils/100 WBC (Bld) Automated neutrophil % High 43.0-75.0 [facility] No Panel Informationon 07-21 Eosinophils # (Auto) 0.2 10 3/uL 0.0-0.7 [facility] Immature Granulocyte # (Auto) 0.04 10 3/uL High 0.00-0.03 [facility] Troponin I High Sensitivity 299.5 pg/mL Critically high 4.0-51.3 [facility] Comment on above: RESULTS CALLED TO EMILY DAWKINS)/ERCUT-OFF POINTS HAVE BEEN ESTABLISHED BASED ON THE FOURTHUNIVERSAL DEFINITION OF MYOCARDIAL INFARCTION. THE UPPERREFERENCE LIMIT (URL) OF TROPONIN, DEFINED THE 99THPERCENTILE OF cTnI DISTRIBUTION IN A REFERENCE POPULATION,HAS BEEN CONFIRMED THE DECISION THRESHOLD FOR MIDIAGNOSIS.99TH PERCENTILE = 51.4 PG/MLNOTE: HIGH-SENSITIVITY TROPONIN ASSAY IS NOT INTENDED TO BEUSED IN ISOLATION BUT SHOULD BE INTERPRETED IN CONJUNCTIONWITH OTHER DIAGNOSTIC AND CLINICAL INFORMATION. Platelet mean volume Auto (B ld) [Entitic vol]on 07-21-2024 Platelet mean volume (Bld) [Entitic vol] Platelet mean volume [Entitic volume] in Blood by Automated count 9.5-13.5 [facility] Platelets Auto (Bld) [#/Vol] on 07-21-2024 Platelets (Bld) [#/Vol] Platelets [#/volume] in Blood by Automated count 150-450 [facility] Prothrombin Time INRon 07-21 INR Coag (PPP) [Relative time] 1.3 {INR} Normal [facility] Comment on above: [...] with mechanical heart valves: 3 - 4.5 PERFORMED BY: [facility] [address] [place] [address] PATHOLOGIST [employer] AKILAH LOMBARDO M.D. Performed By: #### M G, PT ####[address] [place] [address] [facility] PT Coag (PPP) [Time] 14.6 s High 9.0-12.9 [facility] [facility] Comment on above: Result Comment: A he matocrit value greater than 55% may lead to inaccurate results in coagulation testing. Patients having hematocrit values >55% require a special collection tube for coagulation studies. Please contact the laboratory at [phone] for redraw instructions. Performed By: #### M G, PT ####[facility] [place] [address] [facility] Prothrombin time (PT)Ordered By: Aroldo Peña on 07-21-2024 PT Coag (PPP) [Time] Prothrombin time (PT) High 9.0- 12.9 [facility] Comment on above: A hematocrit value g reater than 55% may lead to inaccurate results in coagulation testing. Patients having hematocrit values >55% require a special collection tube for coagulation studies. Please contact the laboratory at [phone] for redraw instructions. RBC Auto (Bld) [#/Vol]on RBC (Bld) [#/Vol] Erythrocytes [#/volu me] in Blood by Automated count 4.20-5.40 [facility] Serum or plasma albumin/glob ulin mass ratioon 07-21-2024 Albumin/Globulin [Mass ratio] Serum or plasma albumin/globulin mass ratio [facility] Serum or plasma anion gap de terminationon 07-21-2024 Anion gap [Moles/Vol] Serum or plasma an ion gap determination [facility] Telephone Encounteron 2023 [employer] Authentication Interface Message Text Situation: Call transfer from [facility] with breathing issues. Attempt to help with EMS but difficulties. Call to EMS but told unable to send and unable to conference call. Patient disconnected. Attempt to call but no answer. Call to [facility] EMS managed by [facility] whom is contracted via [facility]. Patient lives in independent living managed by [facility]. [facility] will call to have her checked out. Patient needs to get life alert. Background: See above. Cardiology with . Assessment: Message to Dr. Yung. Abimael Recommendation: Normal [facility] [employer] Authentication Interface Message Text Caller transferred to nurse for sx of: Shortness of Breath, Abdominal or Chest Pain, (Patient is not sure which it is). Normal [facility] Troponin I High Sensitivityo n 07-21-2024 Troponin I High Sensitivity 53.5 pg/mL Off scale high 0.0-15.0 [facility] Comment on above: Result Comment: Crit ical Result : Called to and read back by: JARED PANG at: 07/21/2024 23:08:48 by:[id number] PERFORMED BY: [facility] [address] [place] [id number] PATHOLOGIST [employer]BER AKILAH LOMBARDO M.D. Performed By: #### B MP, HS TROP ####[place] [address] [place] [id number] [facility] Basic Metabolic Panelon 11 Anion gap [Moles/Vol] 11.1 mmol/L Normal 6.0-15.0 Th e [facility] Comment on above: Performed By: #### C BC, BMP ####[facility] Calcium [Mass/Vol] 8.3 mg/dL Low 8.6-10.3 [facility] Comment on above: Performed By: #### C BC, BMP ####[address] Chloride [Moles/Vol] 106 mmol/L Normal 98-107 [facility] Comment on above: Performed By: #### C BC, BMP ####[address] CO2 [Moles/Vol] 25.5 mmol/L Normal 21.0-31.0 [facility] Comment on above: Performed By: #### C BC, BMP ####[address] Creatinine [Mass/Vol] 1.07 mg/dL Normal 0.60-1.20 [facility] Comment on above: Performed By: #### C BC, BMP ####[address] Creatinine Clr Calc Pharmacy 36.26 Normal [facility] Comment on above: Result Comment: PERF ORMED BY: [facility] [address] [place] [address] PATHOLOGIST [employer]BER AKILAH LOMBARDO M.D. Performed By: #### C BC, BMP ####[address] Estimated GFR 52.185 mL/Min Normal [facility] Comment on above: Performed By: #### C BC, BMP ####[place] [id number] [facility] Glucose [Mass/Vol] 111 mg/dL High 70-100 [facility] Comment on above: Result Comment: [place] Glucose Reference Range is dependent on time and content of last meal. Glucose of more than 200 mg/dL in a nonstressed, ambulatory subject supports the diagnosis of Diabetes Mellitus. ADA recommended reference range Performed By: #### C BC, BMP ####[address] Potassium [Moles/Vol] 3.6 mmol/L Normal 3.5-5.1 [facility] Comment on above: Performed By: #### C ABI, BMP ####[place] [address] [address] Sodium [Moles/Vol] 139 mmol/L Normal 136-145 [facility] Comment on above: Performed By: #### C ABI, BMP ####[place] [address] Urea nitrogen [Mass/Vol] 23 mg/dL Normal 7-25 [facility] Comment on above: Performed By: #### C ABI, BMP ####[place] [address] Basophils Auto (Bld) [#/Vol] Ordered By: Shilpa Fenton on 07-03-2024 Basophils (Bld) [#/Vol] Automated basophil count 0.0-0.2 [facility] Basophils/100 WBC Auto (Bld) Ordered By: Shilpa Fenton on 07-03-2024 Basophils/100 WBC (Bld) Automated basophil % . [facility] Calcium [Mass/volume] in Ser um or PlasmaOrdered By: Shilpa Fentno on 07-03-2024 Calcium [Mass/Vol] Calcium [Mass/volume ] in Serum or Plasma Low 8.6-10.3 [facility] Carbon dioxide, total [Moles /volume] in Serum or PlasmaOrdered By: Shilpa Fenton on 07-03-2024 CO2 [Moles/Vol] Carbon dioxide, tota l [Moles/volume] in Serum or Plasma 21.0-31.0 [facility] Chloride [Moles/volume] in S vaughn or PlasmaOrdered By: Shilpa Fenton on 07-03-2024 Chloride [Moles/Vol] Chloride [Moles/vol ume] in Serum or Plasma 98-107 [facility] Complete Blood Count Auto Di ffon 07-03-2024 Basophils (Bld) [#/Vol] 0.0 10*3/uL Normal 0.0-0.2 [facility] Comment on above: Result Comment: PERF ORMED BY: [facility] [place] [place] [address] PATHOLOGIST [employer] AKILAH LOMBARDO M.D. Performed By: #### C BC, BMP ####[place] [id number] [facility] Basophils/100 WBC (Bld) 0.3 % Normal . [facility] Comment on above: Performed By: #### C BC, BMP ####[address] Eosinophils (Bld) [#/Vol] 0.2 10*3/uL Normal 0.0-0.45 [facility] Comment on above: Performed By: #### C ABI, BMP ####[address] Eosinophils/100 WBC (Bld) 2.3 % Normal . [facility] Comment on above: Performed By: #### C ABI, BMP ####[address] Erythrocyte distribution width (RBC) [Ratio] 14.3 % Normal 11.9-15.3 [facility] Comment on above: Performed By: #### C ABI, BMP ####[address] Hematocrit (Bld) [Volume fraction] 35.3 % Normal 34.0-46.4 [facility] Comment on above: Performed By: #### C ABI, BMP ####[place] [id number] [facility] Hemoglobin (Bld) [Mass/Vol] 11.9 g/dL Normal 11.8-15.4 [facility] Comment on above: Performed By: #### C BC, BMP ####[address] Lymphocytes (Bld) [#/Vol] 1.1 10*3/uL Normal 1.00-4.8 [facility] Comment on above: Performed By: #### C ABI, BMP ####[address] Lymphocytes/100 WBC (Bld) 10.9 % Normal . [facility] Comment on above: Performed By: #### C BC, BMP ####[place] [id number] [facility] MCH (RBC) [Entitic mass] 31.6 pg Normal 24.7-34.3 [facility] Comment on above: Performed By: #### C BC, BMP ####[address] MCV (RBC) [Entitic vol] 93.9 fL Normal 80-100 [facility] Comment on above: Performed By: #### C ABI, BMP ####[address] Mean Corpuscular HGB Conc 33.7 g/dL Normal 32.0-35.0 [facility] Comment on above: Performed By: #### C ABI, BMP ####[address] Monocytes (Bld) [#/Vol] 0.5 10*3/uL Normal 0.0-0.8 [facility] Comment on above: Performed By: #### C ABI, BMP ####[place] [id number] [facility] Monocytes/100 WBC (Bld) 5.6 % Normal . [facility] Comment on above: Performed By: #### C ABI, BMP ####[address] Neutrophils (Bld) [#/Vol] 7.9 10*3/uL High 1.8-7.7 [facility] Comment on above: Performed By: #### C BC, BMP ####[place] [id number] [facility] Neutrophils/100 WBC (Bld) 80.9 % Normal . [facility] Comment on above: Performed By: #### C BC, BMP ####[address] [place] [address] [place] NRBC% 0.1 /100{WBC} Normal 0-0.5 [facility] Comment on above: Performed By: #### C ABI, BMP ####[address] Platelet mean volume (Bld) [Entitic vol] 8.7 fL Normal 6.3-10.7 [facility] Comment on above: Performed By: #### C ABI, BMP ####[address] Platelets (Bld) [#/Vol] 227 10*3/uL Normal 150-450 [facility] Comment on above: Performed By: #### C ABI, BMP ####[address] RBC (Bld) [#/Vol] 3.76 10*6/uL Normal 3.60-5.00 [facility] Comment on above: Performed By: #### C ABI, BMP ####[address] WBC (Bld) [#/Vol] 9.8 10*3/uL Normal 3.8-11.6 [facility] Comment on above: Performed By: #### C ABI, BMP ####[address] Creatinine [Mass/volume] in Serum or PlasmaOrdered By: Shilpa Fenton on 07-03-2024 Creatinine [Mass/Vol] Creatinine [Mass/v olume] in Serum or Plasma 0.60-1.20 [facility] Eosinophils Auto (Bld) [#/Vo l]Ordered By: Shilpa Fenton on 07-03-2024 Eosinophils (Bld) [#/Vol] Automated eosinophil count 0.0-0.45 [facility] Eosinophils/100 WBC Auto (Bl d)Ordered By: Shilpa Fenton on 07-03-2024 Eosinophils/100 WBC (Bld) Automated eosinophil % . [facility] Erythrocyte distribution wid th Auto (RBC) [Ratio]Ordered By: Shilpa Fenton on 07-03-2024 Erythrocyte distribution width (RBC) [Ratio] Erythrocyte distribution width [Ratio] by Automated count 11.9-15.3 [facility] Glucose [Mass/volume] in Ser um or PlasmaOrdered By: Shilpa Fenton on 07-03-2024 Glucose [Mass/Vol] Glucose [Mass/volume ] in Serum or Plasma High 70-100 [facility] Comment on above: ADA recommended refe rence rangeRandom Glucose Reference Range is dependent on time and content of last meal. Glucose of more than 200 mg/dL in a nonstressed, ambulatory subject supports the diagnosis of Diabetes Mellitus. Hematocrit Auto (Bld) [Volum e fraction]Ordered By: Shilpa Fenton on 07-03-2024 Hematocrit (Bld) [Volume fraction] Hematocrit [Volume Fraction] of Blood by Automated count 34.0-46.4 [facility] Hemoglobin [Mass/volume] in BloodOrdered By: Shilpa Fenton on 07-03-2024 Hemoglobin (Bld) [Mass/Vol] Hemoglobin [Mass/volume] in Blood 11.8-15.4 [facility] Leukocytes [#/volume] correc anne marie for nucleated erythrocytes in Blood by Automated counOrdered By: Shilpa Fenton on 07-03-2024 WBC corrected for nucl RBC Auto (Bld) [#/Vol] Leukocytes [#/volume] corrected for nucleated erythrocytes in Blood by Automated coun 3.8-11.6 [facility] Lymphocytes Auto (Bld) [#/Vo l]Ordered By: Shilpa Fenton on 07-03-2024 Lymphocytes (Bld) [#/Vol] Lymphocytes [#/volume] in Blood by Automated count 1.00-4.8 [facility] Lymphocytes/100 WBC Auto (Bl d)Ordered By: Shilpa Fenton on 07-03-2024 Lymphocytes/100 WBC (Bld) Lymphocytes/100 leukocytes in Blood by Automated count . [facility] MCH Auto (RBC) [Entitic mass ]Ordered By: Shilpa Fenton on 07-03-2024 MCH (RBC) [Entitic mass] MCH [Entitic mass] by Automated count 24.7-34.3 [facility] MCHC Auto (RBC) [Mass/Vol]Or dered By: Shilpa Fenton on 07-03-2024 MCHC (RBC) [Mass/Vol] MCHC [Mass/volume] by Automated count 32.0-35.0 [facility] MCV Auto (RBC) [Entitic vol] Ordered By: Shilpa Fenton on 07-03-2024 MCV (RBC) [Entitic vol] MCV [Entitic volume] by Automated count 80-100 [facility] Monocytes Auto (Bld) [#/Vol] Ordered By: Shilpa Fenton on 07-03-2024 Monocytes (Bld) [#/Vol] Automated blood monocyte count 0.0-0.8 [facility] Monocytes/100 WBC Auto (Bld) Ordered By: Shilpa Fenton on 07-03-2024 Monocytes/100 WBC (Bld) Automated monocyte % . [facility] Neutrophils Auto (Bld) [#/Vo l]Ordered By: Shilpa Fenton on 07-03-2024 Neutrophils (Bld) [#/Vol] Neutrophils [#/volume] in Blood by Automated count High 1.8-7.7 [facility] Neutrophils/100 WBC Auto (Bl d)Ordered By: Shilpa Fenton on 07-03-2024 Neutrophils/100 WBC (Bld) Automated neutrophil % . [facility] No Panel InformationOrdered By: Shilpa Fenton on 07-03-2024 Estimated GFR (CKD-EPI) 52.185 mL/Min [facility] Creatinine Clearance (Chem 36.26 [facility] Nucleated erythrocytes [Pres ence] in Blood by Automated countOrdered By: Shilpa Fenton on 07-03-2024 Nucleated RBC Auto Ql (Bld) Nucleated erythrocytes [Presence] in Blood by Automated count 0-0.5 [facility] Platelet mean volume Auto (B ld) [Entitic vol]Ordered By: hSilpa Fenton on 07-03-2024 Platelet mean volume (Bld) [Entitic vol] Platelet mean volume [Entitic volume] in Blood by Automated count 6.3-10.7 [facility] Platelets Auto (Bld) [#/Vol] Ordered By: Shilpa Fenton on 07-03-2024 Platelets (Bld) [#/Vol] Platelets [#/volume] in Blood by Automated count 150-450 [facility] Potassium [Moles/volume] in Serum or PlasmaOrdered By: Shilpa Fenton on 07-03-2024 Potassium [Moles/Vol] Potassium [Moles/v olume] in Serum or Plasma 3.5-5.1 [facility] RBC Auto (Bld) [#/Vol]Ordere d By: Shilpa Fenotn on 07-03-2024 RBC (Bld) [#/Vol] Erythrocytes [#/volu me] in Blood by Automated count 3.60-5.00 [facility] Serum or plasma anion gap de terminationOrdered By: Shilpa Fenton on 07-03-2024 Anion gap [Moles/Vol] Serum or plasma an ion gap determination 6.0-15.0 [facility] Sodium [Moles/volume] in Ser um or PlasmaOrdered By: Shilpa Fenton on 07-03-2024 Sodium [Moles/Vol] Sodium [Moles/volume ] in Serum or Plasma 136-145 [facility] Urea nitrogen [Mass/volume] in Serum or PlasmaOrdered By: Shilpa Fenton on 07-03-2024 Urea nitrogen [Mass/Vol] Urea nitrogen [Mass/volume] in Serum or Plasma 7-25 [facility] WBC Auto (Bld) [#/Vol]Ordere d By: Shilpa Fenton on 07-03-2024 WBC (Bld) [#/Vol] Leukocytes [#/volume ] in Blood by Automated count 3.8-11.6 [facility] Basic Metabolic Panelon 06-20 Anion gap [Moles/Vol] 14.7 mmol/L Normal 6.0-15.0 Th e [facility] Comment on above: Performed By: #### B MP ####[facility] [address] [place] [address] [facility] Calcium [Mass/Vol] 8.4 mg/dL Low 8.6-10.3 [facility] Comment on above: Performed By: #### B MP ####[place] [id number] [facility] Chloride [Moles/Vol] 104 mmol/L Normal 98-107 [facility] Comment on above: Performed By: #### B MP ####[place] [id number] [facility] CO2 [Moles/Vol] 23.3 mmol/L Normal 21.0-31.0 [facility] Comment on above: Performed By: #### B MP ####[place] [id number] [facility] Creatinine [Mass/Vol] 1.18 mg/dL Normal 0.60-1.20 [facility] Comment on above: Performed By: #### B MP ####[address] Creatinine Clr Calc Pharmacy 32.31 Normal [facility] Comment on above: Result Comment: PERF ORMED BY: [facility] [address] [place] [id number] PATHOLOGIST [employer]BER AKILAH LOMBARDO M.D. Performed By: #### B MP ####[address] GFR/1.73 sq M.predicted MDRD (S/P/Bld) [Vol rate/Area] 46.403 mL/min/{1.73_m2} Normal [facility] Comment on above: Performed By: #### B MP ####[place] [id number] [facility] Glucose [Mass/Vol] 166 mg/dL High 70-100 [facility] Comment on above: Result Comment: [place] om Glucose Reference Range is dependent on time and content of last meal. Glucose of more than 200 mg/dL in a nonstressed, ambulatory subject supports the diagnosis of Diabetes Mellitus. ADA recommended reference range Performed By: #### B MP ####[place] [id number] [facility] Potassium [Moles/Vol] 4.0 mmol/L Normal 3.5-5.1 [facility] Comment on above: Performed By: #### B MP ####[place] [id number] [facility] Sodium [Moles/Vol] 138 mmol/L Normal 136-145 [facility] Comment on above: Performed By: #### B MP ####[place] [id number] [facility] Urea nitrogen [Mass/Vol] 24 mg/dL Normal 7-25 [facility] Comment on above: Performed By: #### B MP ####[place] [id number] [facility] Anion gap [Moles/Vol] 12.9 mmol/L Normal 6.0-15.0 Th e [facility] Comment on above: Performed By: #### B MP ####[place] [id number] [facility] Calcium [Mass/Vol] 8.4 mg/dL Low 8.6-10.3 [facility] Comment on above: Performed By: #### B MP ####[place] [id number] [facility] Chloride [Moles/Vol] 104 mmol/L Normal 98-107 [facility] Comment on above: Performed By: #### B MP ####[place] [id number] [facility] CO2 [Moles/Vol] 24.2 mmol/L Normal 21.0-31.0 [facility] Comment on above: Performed By: #### B MP ####[place] [id number] [facility] Creatinine [Mass/Vol] 1.07 mg/dL Normal 0.60-1.20 [facility] Comment on above: Performed By: #### B MP ####[place] [id number] [facility] Creatinine Clr Calc Pharmacy 35.63 Normal [facility] Comment on above: Result Comment: PERF ORMED BY: [facility] [address] [place] [id number] PATHOLOGIST [employer] MEMBER VITOR ZARATE M.D. Performed By: #### B MP ####[address] [address] [facility] GFR/1.73 sq M.predicted MDRD (S/P/Bld) [Vol rate/Area] 52.185 mL/min/{1.73_m2} Normal [facility] Comment on above: Performed By: #### B MP ####[place] [id number] [facility] Glucose [Mass/Vol] 101 mg/dL High 70-100 [facility] Comment on above: Result Comment: [facility] [place][note 2] Glucose Reference Range is dependent on time and content of last meal. Glucose of more than 200 mg/dL in a nonstressed, ambulatory subject supports the diagnosis of Diabetes Mellitus. ADA recommended reference range Performed By: #### B MP ####[place] [id number] [facility] Potassium [Moles/Vol] 4.1 mmol/L Normal 3.5-5.1 [facility] Comment on above: Performed By: #### B MP ####[place] [id number] [facility] Sodium [Moles/Vol] 137 mmol/L Normal 136-145 [facility] Comment on above: Performed By: #### B MP ####[address] [address] [facility] Urea nitrogen [Mass/Vol] 23 mg/dL Normal 7-25 [facility] Comment on above: Performed By: #### B MP ####[place] [id number] [facility] Complete Blood Count Auto Di ffon 07-02-2024 Basophils (Bld) [#/Vol] 0.1 10*3/uL Normal 0.0-0.2 [facility] Comment on above: Result Comment: PERF ORMED BY: [facility] [address] [place] [address] PATHOLOGIST [employer] AKILAH LOMBARDO M.D. Performed By: #### C BC ####[address] Basophils/100 WBC (Bld) 1.3 % Normal . [facility] Comment on above: Performed By: #### C BC ####[address] Eosinophils (Bld) [#/Vol] 0.2 10*3/uL Normal 0.0-0.45 [facility] Comment on above: Performed By: #### C BC ####[address] Eosinophils/100 WBC (Bld) 1.9 % Normal . [facility] Comment on above: Performed By: #### C BC ####[address] Erythrocyte distribution width (RBC) [Ratio] 14.2 % Normal 11.9-15.3 [facility] Comment on above: Performed By: #### C BC ####[address] Hematocrit (Bld) [Volume fraction] 38.5 % Normal 34.0-46.4 [facility] Comment on above: Performed By: #### C BC ####[address] Hemoglobin (Bld) [Mass/Vol] 12.8 g/dL Normal 11.8-15.4 [facility] Comment on above: Performed By: #### C BC ####[address] Lymphocytes (Bld) [#/Vol] 1.7 10*3/uL Normal 1.00-4.8 [facility] Comment on above: Performed By: #### C BC ####[address] Lymphocytes/100 WBC (Bld) 19.1 % Normal . [facility] Comment on above: Performed By: #### C BC ####[address] MCH (RBC) [Entitic mass] 31.5 pg Normal 24.7-34.3 [facility] Comment on above: Performed By: #### C BC ####[address] MCV (RBC) [Entitic vol] 94.4 fL Normal 80-100 [facility] Comment on above: Performed By: #### C BC ####[address] Mean Corpuscular HGB Conc 33.3 g/dL Normal 32.0-35.0 [facility] Comment on above: Performed By: #### C BC ####[address] Monocytes (Bld) [#/Vol] 0.4 10*3/uL Normal 0.0-0.8 [facility] Comment on above: Performed By: #### C BC ####[address] Monocytes/100 WBC (Bld) 4.8 % Normal . [facility] Comment on above: Performed By: #### C BC ####[address] Neutrophils (Bld) [#/Vol] 6.7 10*3/uL Normal 1.8-7.7 [facility] Comment on above: Performed By: #### C BC ####[address] Neutrophils/100 WBC (Bld) 72.9 % Normal . [facility] Comment on above: Performed By: #### C BC ####[address] NRBC% 0.2 /100{WBC} Normal 0-0.5 [facility] Comment on above: Performed By: #### C BC ####[address] Platelet mean volume (Bld) [Entitic vol] 8.2 fL Normal 6.3-10.7 [facility] Comment on above: Performed By: #### C BC ####[place] [address] [place] [id number] [facility] Platelets (Bld) [#/Vol] 238 10*3/uL Normal 150-450 [facility] Comment on above: Performed By: #### C BC ####[place] [address] [place] [address] [facility] RBC (Bld) [#/Vol] 4.08 10*6/uL Normal 3.60-5.00 [facility] Comment on above: Performed By: #### C BC ####[place] [address] [place] [address] [facility] WBC (Bld) [#/Vol] 9.1 10*3/uL Normal 3.8-11.6 [facility] Comment on above: Performed By: #### C BC ####[place] [id number] [facility] ECG 12 lead ECGon 07-02-2024 ECG 12 lead ECG [facility] [place] [address] [place] [address] Electrocardiograph Report Signed Patient: Austin Golden MR#: [id number] 8 : 1940 Acct:[id number] Age/Sex: 83 / F ADM Date: 06/30/24 Loc: Room: [address] [place] [address] Type: ADM IN Attending Dr: Shilpa Fenton MD Ordering Provider: Shilpa Fenton MD Date of Service: 07/02/24 ECG/ECG 12 lead ECG: syncope, MET Copies to: Test Reason : Blood Pressure : */* mmHG Vent. Rate : 71 BPM Atrial Rate : 71 BPM P-R Int : 308 ms QRS Dur : 126 ms QT Int : 430 ms P-R-T Axes : * -5 178 degrees QTcB Int : 467 ms Atrial-paced rhythm with prolonged AV conduction Left bundle branch block Abnormal ECG When compared with ECG of 02-Jul-2024 09:08, (Unconfirmed) Previous ECG has undetermined rhythm, needs review Confirmed by TRABOULDEBBIE BAEZ MD ([id number]) on 07/02/2024 4:02:01 PM Referred By: Jimena Smith Electronically Signed By: DEBBIE MAC MD Transcribed By: SHANELL Signed By Debbie Mac MD 1 09/01/23 1602 Normal [facility] ECG 12 lead ECG [facility] Main [address] [address] Electrocardiograph Report Signed Patient: Austin Golden MR#: [id number] 8 : 1940 Acct:[id number] Age/Sex: 83 / F ADM Date: 06/30/24 Loc: 3T Room: [address] [place] [address] Type: ADM IN Attending Dr: Shilpa Fenton MD Ordering Provider: Javed Dee DO Date of Service: 07/02/24 ECG/ECG 12 lead ECG: Pre-cardioversion rhythm assessment Copies to: Test Reason : Blood Pressure : */* mmHG Vent. Rate : 95 BPM Atrial Rate : 95 BPM P-R Int : 264 ms QRS Dur : 120 ms QT Int : 370 ms P-R-T Axes : * 86 258 degrees QTcB Int : 464 ms Sinus rhythm with 1st degree AV block ?? paced nentricular rhythm Abnormal ECG When compared with ECG of 01-Jul-2024 07:45, Sinus rhythm has replaced atrial fibrillation Confirmed by DEBBIE MAC MD ([id number]) on 07/02/2024 4:00:24 PM Referred By: Jimena Smith Electronically Signed By: DEBBIE MAC MD Transcribed By: SHANELL Signed By Debbie Mac MD 1 09/01/23 1600 Normal [facility] ECG post procedureon 024 ECG post procedure [facility] Main [place] [id number] Electrocardiograph Report Signed Patient: Austin Golden MR#: [id number] 8 : 1940 Acct:[id number] Age/Sex: 83 / F ADM Date: 06/30/24 Loc: 3T Room: [address] [place] [address] Type: ADM IN Attending Dr: Shilpa Fenton MD Ordering Provider: Shilpa Fenton MD Date of Service: 07/02/24/ ECG/ECG post procedure: AFIB/Flutter Copies to: Test Reason : Blood Pressure : 153/57 mmHG Vent. Rate : 78 BPM Atrial Rate : 72 BPM P-R Int : * ms QRS Dur : 84 ms QT Int : 368 ms P-R-T Axes : * 16 198 degrees QTcB Int : 419 ms Suspect unspecified pacemaker failure AV dual-paced rhythm Low voltage QRS Cannot rule out Anterior infarct , age undetermined Abnormal ECG When compared with ECG of 02-Jul-2024 08:42, (Unconfirmed) AV dual-paced rhythm is now dominant Confirmed by DEBBIE MAC MD ([id number]) on 07/02/2024 4:01:29 PM Referred By: Jimena Smith Electronically Signed By: DEBBIE MAC MD Transcribed By: MUS Signed By Debbie Mac MD 1 09/01/23 1601 Normal [facility] Glucose Glucometer (BldC) [M ass/Vol]Ordered By: Shilpa Fenton on 07-02-2024 Glucose [Mass/Vol] Capillary blood gluc ose measurement by glucometer (mass/volume) [facility] Comment on above: Random Glucose Refer ence Range is dependent on time and content of last meal. Glucose of more than 200 mg/dL in a nonstressed, ambulatory subject supports the diagnosis of Diabetes Mellitus. Glucose Poct Glucometerson 09-01-2023 Glucose [Mass/Vol] 172 mg/dL Normal [facility] Comment on above: Result Comment: [place] Glucose Reference Range is dependent on time and content of last meal. Glucose of more than 200 mg/dL in a nonstressed, ambulatory subject supports the diagnosis of Diabetes Mellitus. PERFORMED BY: [facility] [address] [place] [address] PATHOLOGIST [employer]BER AKILAH LOMBARDO M.D. Performed By: #### G LULS ####Point of Care testing, Basic Metabolic Panelon 06-20 Anion gap [Moles/Vol] 13.0 mmol/L Normal 6.0-15.0 Th e [facility] Comment on above: Performed By: #### C BC, BMP ####[place] [place] [address] [facility] Calcium [Mass/Vol] 8.2 mg/dL Low 8.6-10.3 [facility] Comment on above: Performed By: #### C BC, BMP ####[place] [id number] [facility] Chloride [Moles/Vol] 105 mmol/L Normal 98-107 [facility] Comment on above: Performed By: #### C BC, BMP ####[address] [address] [facility] CO2 [Moles/Vol] 26.1 mmol/L Normal 21.0-31.0 [facility] Comment on above: Performed By: #### C BC, BMP ####[address] [address] [facility] Creatinine [Mass/Vol] 1.12 mg/dL Normal 0.60-1.20 [facility] Comment on above: Performed By: #### C BC, BMP ####[address] [address] [place] Creatinine Clr Calc Pharmacy 33.15 Normal [facility] Comment on above: Result Comment: PERF ORMED BY: [facility] [address] [place] [address] PATHOLOGIST [employer] VITOR ZARATE M.D. Performed By: #### C BC, BMP ####[address] [address] [place] GFR/1.73 sq M.predicted MDRD (S/P/Bld) [Vol rate/Area] 49.402 mL/min/{1.73_m2} Normal [facility] Comment on above: Performed By: #### C BC, BMP ####[address] [address] [facility] Glucose [Mass/Vol] 87 mg/dL Normal 70-100 [facility] Comment on above: Result Comment: [place] Glucose Reference Range is dependent on time and content of last meal. Glucose of more than 200 mg/dL in a nonstressed, ambulatory subject supports the diagnosis of Diabetes Mellitus. ADA recommended reference range Performed By: #### C BC, BMP ####[address] Potassium [Moles/Vol] 4.1 mmol/L Normal 3.5-5.1 [facility] Comment on above: Performed By: #### C BC, BMP ####[address] Sodium [Moles/Vol] 140 mmol/L Normal 136-145 [facility] Comment on above: Performed By: #### C ABI, BMP ####[address] Urea nitrogen [Mass/Vol] 24 mg/dL Normal 7-25 [facility] Comment on above: Performed By: #### C ABI, BMP ####[address] Complete Blood Count Auto Di ffon 07-01-2024 Basophils (Bld) [#/Vol] 0.1 10*3/uL Normal 0.0-0.2 [facility] Comment on above: Result Comment: PERF ORMED BY: [address] [place] [address] PATHOLOGIST [employer] VITOR ZARATE M.D. Performed By: #### C ABI, BMP ####[address] Basophils/100 WBC (Bld) 1.0 % Normal . [facility] Comment on above: Performed By: #### C BC, BMP ####[address] Eosinophils (Bld) [#/Vol] 0.2 10*3/uL Normal 0.0-0.45 [facility] Comment on above: Performed By: #### C BC, BMP ####[address] Eosinophils/100 WBC (Bld) 2.5 % Normal . [facility] Comment on above: Performed By: #### C BC, BMP ####[address] Erythrocyte distribution width (RBC) [Ratio] 14.0 % Normal 11.9-15.3 [facility] Comment on above: Performed By: #### C BC, BMP ####[address] Hematocrit (Bld) [Volume fraction] 37.0 % Normal 34.0-46.4 [facility] Comment on above: Performed By: #### C ABI, BMP ####[address] Hemoglobin (Bld) [Mass/Vol] 12.4 g/dL Normal 11.8-15.4 [facility] Comment on above: Performed By: #### C BC, BMP ####[address] Lymphocytes (Bld) [#/Vol] 1.4 10*3/uL Normal 1.00-4.8 [facility] Comment on above: Performed By: #### C ABI, BMP ####[address] Lymphocytes/100 WBC (Bld) 20.3 % Normal . [facility] Comment on above: Performed By: #### C BC, BMP ####[address] MCH (RBC) [Entitic mass] 31.8 pg Normal 24.7-34.3 [facility] Comment on above: Performed By: #### C BC, BMP ####[address] MCV (RBC) [Entitic vol] 95.0 fL Normal 80-100 [facility] Comment on above: Performed By: #### C BC, BMP ####[address] Mean Corpuscular HGB Conc 33.5 g/dL Normal 32.0-35.0 [facility] Comment on above: Performed By: #### C BC, BMP ####[address] Monocytes (Bld) [#/Vol] 0.5 10*3/uL Normal 0.0-0.8 [facility] Comment on above: Performed By: #### C BC, BMP ####[address] Monocytes/100 WBC (Bld) 7.2 % Normal . [facility] Comment on above: Performed By: #### C BC, BMP ####[address] Neutrophils (Bld) [#/Vol] 4.8 10*3/uL Normal 1.8-7.7 [facility] Comment on above: Performed By: #### C BC, BMP ####[address] Neutrophils/100 WBC (Bld) 69.0 % Normal . [facility] Comment on above: Performed By: #### C BC, BMP ####[address] NRBC% 0.2 /100{WBC} Normal 0-0.5 [facility] Comment on above: Performed By: #### C BC, BMP ####[address] Platelet mean volume (Bld) [Entitic vol] 8.9 fL Normal 6.3-10.7 [facility] Comment on above: Performed By: #### C BC, BMP ####[address] Platelets (Bld) [#/Vol] 231 10*3/uL Normal 150-450 [facility] Comment on above: Performed By: #### C BC, BMP ####[address] RBC (Bld) [#/Vol] 3.90 10*6/uL Normal 3.60-5.00 [facility] Comment on above: Performed By: #### C ABI, BMP ####[place] [address] WBC (Bld) [#/Vol] 7.0 10*3/uL Normal 3.8-11.6 [facility] Comment on above: Performed By: #### C ABI, BMP ####[address] ECG 12 lead ECGon 07-01-2024 ECG 12 lead ECG [facility] [address] [place] [address] [place] [address] Electrocardiograph Report Signed Patient: Austin Golden MR#: [id number] 8 : 1940 Acct:[id number] Age/Sex: 83 / F ADM Date: 06/30/24 Loc: Room: [address] [place] [address] Type: ADM IN Attending Dr: Shilpa Fenton MD Ordering Provider: Shilpa Fenton MD Date of Service: 07/01/2408/12/500 ECG/ECG 12 lead ECG: Shortness of Breath/Dyspnea Copies to: Test Reason : Blood Pressure : */* mmHG Vent. Rate : 81 BPM Atrial Rate : * BPM P-R Int : * ms QRS Dur : 114 ms QT Int : 380 ms P-R-T Axes : * -14 177 degrees QTcB Int : 441 ms Atrial fibrillation with Ventricular-paced rhythm Abnormal ECG When compared with ECG of 30-Jun-2024 14:32, No significant change was found Confirmed by DEBBIE MAC MD ([id number]) on 07/01/2024 5:29:01 PM Referred By: Electronically Signed By: DEBBIE MAC MD Transcribed By: MUS Signed By Debbie Mac MD 1 08/31/23 1729 Normal [facility] Troponin I High Sensitivityo n 07-01-2024 Troponin I High Sensitivity 92.3 pg/mL Off scale high 0.0-15.0 [facility] Comment on above: Result Comment: Crit ical Result : Called to and read back by: МАРИЯ MARKS at: 07/01/2024 01:58:44 by:[id number] PERFORMED BY: [facility] [address] [facility] [place] [address] PATHOLOGIST [employer] VITOR ZARATE M.D. Performed By: #### H S TROP ####[facility] [place] [id number] [facility] Troponin I.cardiac [Mass/vol ume] in Serum or Plasma by Detection limit <= 0.01 ng/Ordered By: Shilpa Fenton on 07-01-2024 Troponin I.cardiac DL <= 0.01 ng/mL [Mass/Vol] Troponin I.cardiac [Mass/volume] in Serum or Plasma by Detection limit <= 0.01 ng/ Critically high 0.0-15.0 [facility] Comment on above: Critical Result : Ca lled to and read back by: МАРИЯ MARKS at: 07/01/2024 01:58:44 by:[id number] Alanine aminotransferase [En zymatic activity/volume] in Serum or PlasmaOrdered By: Vic Mendez on 06-30-2024 ALT [Catalytic activity/Vol] Alanine aminotransferase [Enzymatic activity/volume] in Serum or Plasma 752 [facility] Albumin [Mass/volume] in Ser um or Plasma by Bromocresol green (BCG) dye binding methoOrdered By: Vic Mendez on 06-30-2024 Albumin BCG dye [Mass/Vol] Albumin [Mass/volume] in Serum or Plasma by Bromocresol green (BCG) dye binding metho 3.5-5.7 [facility] Alkaline phosphatase [Enzyma tic activity/volume] in Serum or PlasmaOrdered By: Vic Mendez on 06-30-2024 ALP [Catalytic activity/Vol] Alkaline phosphatase [Enzymatic activity/volume] in Serum or Plasma 34-104 [facility] Aspartate aminotransferase [ Enzymatic activity/volume] in Serum or PlasmaOrdered By: Vic Mendez on 06-30-2024 AST [Catalytic activity/Vol] Aspartate aminotransferase [Enzymatic activity/volume] in Serum or Plasma 13-39 [facility] B-Type Natriuretic Peptideon 06-30-2024 Natriuretic peptide B (Bld) [Mass/Vol] 84.0 pg/mL Normal 5-100 [facility] Comment on above: Result Comment: PERF ORMED BY: [facility] [address] [place] [address] PATHOLOGIST [employer] MEMBER VITOR ZARATE M.D. Performed By: #### C BC, PT, HS TROP, PTT, CK, CMP, BNP ####[facility] Basophils Auto (Bld) [#/Vol] Ordered By: Vic Mendez on 06-30-2024 Basophils (Bld) [#/Vol] Automated basophil count 0.0-0.2 [facility] Basophils/100 WBC Auto (Bld) Ordered By: Vic Mendez on 06-30-2024 Basophils/100 WBC (Bld) Automated basophil % . [facility] Bilirubin.total [Mass/volume ] in Serum or PlasmaOrdered By: Vic Mendez on 06-30-2024 Bilirubin [Mass/Vol] Bilirubin.total [Mass/volume] in Serum or Plasma 0.3-1.0 [facility] CT head/brain wo conon 06-30 CT head/brain wo con [facility] [address] [place] [address] [place] [address] CT Scan Report Signed Patient: Austin Golden MR#: [id number] 8 : 1940 Acct:[id number] Age/Sex: 83 / F ADM Date: 06/30/24 Loc: ER Room: Type: [facility] ER Attending Dr: Copies to: Vic Mendez PA-C Ordering Provider: Vic Mendez PA-C Date of Service: 06/30/24 CT/CT head/brain wo con: fall Unenhanced head CT TECHNIQUE: Contiguous axial imaging of the head. The CT exam was performed using one or more the following dose reduction techniques: Automated exposure control, adjustment of the MA and/or Kv according to patient size, or use of the iterative reconstruction technique. COMPARISON: 09/01/22 HISTORY: Altered mental status. VENTRICLES: Within normal limits ATROPHY: Similar atrophy BRAIN PARENCHYMA: Decreased density of the white matter is most consistent with chronic small vessel disease. Similar chronic RIGHT thalamic lacunar infarct. HEMORRHAGE: None HERNIATION: No mass effect or herniation INFARCTION: No recent vascular distribution infarction is seen. EXTRA-AXIAL FLUID COLLECTIONS None MIDBRAIN: Unremarkable RAMON: Unremarkable MEDULLA: Unremarkable SINUSES: Unremarkable ORBITS: Grossly unremarkable MASTOIDS: Unremarkable BONY STRUCTURES Intact ADDITIONAL FINDINGS: A similar meningioma at the convexity of the LEFT parietal region measuring 12 mm. Atherosclerosis of carotid siphons and V4 segments CT/CT head/brain wo con IMPRESSION: No acute findings. Impression dictated by: Juanito Borja M.D.06/30/2024 3:47 PM Dictation Location: [place] [address] Transcribed By: [facility] 06/30/24 154 Dictated By: Juanito Borja DO 06/30/24 154 Signed By: 06/30/241546 Normal [facility] Calcium [Mass/volume] in Ser um or PlasmaOrdered By: Vic Mendez on 06-30-2024 Calcium [Mass/Vol] Calcium [Mass/volume ] in Serum or Plasma 8.6-10.3 [facility] Carbon dioxide, total [Moles /volume] in Serum or PlasmaOrdered By: Vic Mendez on 06-30-2024 CO2 [Moles/Vol] Carbon dioxide, tota l [Moles/volume] in Serum or Plasma 21.0-31.0 [facility] Chloride [Moles/volume] in S vaughn or PlasmaOrdered By: Vic Mendez on 06-30-2024 Chloride [Moles/Vol] Chloride [Moles/vol ume] in Serum or Plasma 98-107 [facility] Complete Blood Count Auto Di ffon 06-30-2024 Basophils (Bld) [#/Vol] 0.1 10*3/uL Normal 0.0-0.2 [facility] Comment on above: Result Comment: PERF ORMED BY: [facility] [address] [place] [address] PATHOLOGIST [employer] MEMBER VITOR ZARATE M.D. Performed By: #### C BC, PT, HS TROP, PTT, CK, CMP, BNP ####[facility] [address] [place] [address] [facility] Basophils/100 WBC (Bld) 0.8 % Normal . [facility] Comment on above: Performed By: #### C BC, PT, HS TROP, PTT, CK, CMP, BNP ####[address] Eosinophils (Bld) [#/Vol] 0.2 10*3/uL Normal 0.0-0.45 [facility] Comment on above: Performed By: #### C BC, PT, HS TROP, PTT, CK, CMP, BNP ####[address] Eosinophils/100 WBC (Bld) 1.5 % Normal . [facility] Comment on above: Performed By: #### C BC, PT, HS TROP, PTT, CK, CMP, BNP ####[address] Erythrocyte distribution width (RBC) [Ratio] 14.0 % Normal 11.9-15.3 [facility] Comment on above: Performed By: #### C BC, PT, HS TROP, PTT, CK, CMP, BNP ####[address] Hematocrit (Bld) [Volume fraction] 42.3 % Normal 34.0-46.4 [facility] Comment on above: Performed By: #### C BC, PT, HS TROP, PTT, CK, CMP, BNP ####[address] Hemoglobin (Bld) [Mass/Vol] 14.3 g/dL Normal 11.8-15.4 [facility] Comment on above: Performed By: #### C BC, PT, HS TROP, PTT, CK, CMP, BNP ####[address] Lymphocytes (Bld) [#/Vol] 1.4 10*3/uL Normal 1.00-4.8 [facility] Comment on above: Performed By: #### C BC, PT, HS TROP, PTT, CK, CMP, BNP ####[place] [address] [place] Lymphocytes/100 WBC (Bld) 14.0 % Normal . [facility] Comment on above: Performed By: #### C BC, PT, HS TROP, PTT, CK, CMP, BNP ####[address] MCH (RBC) [Entitic mass] 31.4 pg Normal 24.7-34.3 [facility] Comment on above: Performed By: #### C BC, PT, HS TROP, PTT, CK, CMP, BNP ####[address] MCV (RBC) [Entitic vol] 92.7 fL Normal 80-100 [facility] Comment on above: Performed By: #### C BC, PT, HS TROP, PTT, CK, CMP, BNP ####[address] Mean Corpuscular HGB Conc 33.9 g/dL Normal 32.0-35.0 [facility] Comment on above: Performed By: #### C BC, PT, HS TROP, PTT, CK, CMP, BNP ####[address] Monocytes (Bld) [#/Vol] 0.6 10*3/uL Normal 0.0-0.8 [facility] Comment on above: Performed By: #### C BC, PT, HS TROP, PTT, CK, CMP, BNP ####[address] Monocytes/100 WBC (Bld) 19.87 % Normal 0.00-20.00 [facility] Comment on above: Performed By: #### C BC, PT, HS TROP, PTT, CK, CMP, BNP ####[address] Monocytes/100 WBC (Bld) 5.9 % Normal . [facility] Comment on above: Performed By: #### C BC, PT, HS TROP, PTT, CK, CMP, BNP ####[facility] [address] Neutrophils (Bld) [#/Vol] 8.1 10*3/uL High 1.8-7.7 [facility] Comment on above: Performed By: #### C BC, PT, HS TROP, PTT, CK, CMP, BNP ####[address] Neutrophils/100 WBC (Bld) 77.8 % Normal . [facility] Comment on above: Performed By: #### C BC, PT, HS TROP, PTT, CK, CMP, BNP ####[address] NRBC% 0.1 /100{WBC} Normal 0-0.5 [facility] Comment on above: Performed By: #### C BC, PT, HS TROP, PTT, CK, CMP, BNP ####[address] Platelet mean volume (Bld) [Entitic vol] 8.5 fL Normal 6.3-10.7 [facility] Comment on above: Performed By: #### C BC, PT, HS TROP, PTT, CK, CMP, BNP ####[address] Platelets (Bld) [#/Vol] 259 10*3/uL Normal 150-450 [facility] Comment on above: Performed By: #### C BC, PT, HS TROP, PTT, CK, CMP, BNP ####[address] RBC (Bld) [#/Vol] 4.56 10*6/uL Normal 3.60-5.00 [facility] Comment on above: Performed By: #### C BC, PT, HS TROP, PTT, CK, CMP, BNP ####[address] WBC (Bld) [#/Vol] 10.4 10*3/uL Normal 3.8-11.6 [facility] Comment on above: Performed By: #### C BC, PT, HS TROP, PTT, CK, CMP, BNP ####[address] Comprehensive Metabolic Pane violeta 06-30-2024 Albumin [Mass/Vol] 4.3 g/dL Normal 3.5-5.7 [facility] Comment on above: Performed By: #### C BC, PT, HS TROP, PTT, CK, CMP, BNP ####[address] Albumin/Globulin [Mass ratio] 1.8 {ratio} Normal [facility] Comment on above: Performed By: #### C BC, PT, HS TROP, PTT, CK, CMP, BNP ####[address] ALP [Catalytic activity/Vol] 66 U/L Normal 34-104 [facility] Comment on above: Performed By: #### C BC, PT, HS TROP, PTT, CK, CMP, BNP ####[address] ALT [Catalytic activity/Vol] 31 U/L Normal 7-52 [facility] Comment on above: Performed By: #### C BC, PT, HS TROP, PTT, CK, CMP, BNP ####[address] Anion gap [Moles/Vol] 16.9 mmol/L High 6.0-15.0 Th e [facility] Comment on above: Performed By: #### C BC, PT, HS TROP, PTT, CK, CMP, BNP ####[address] AST [Catalytic activity/Vol] 36 U/L Normal 13-39 [facility] Comment on above: Performed By: #### C BC, PT, HS TROP, PTT, CK, CMP, BNP ####[address] Bilirubin [Mass/Vol] 0.9 mg/dL Normal 0.3-1.0 [facility] Comment on above: Performed By: #### C BC, PT, HS TROP, PTT, CK, CMP, BNP ####[address] Calcium [Mass/Vol] 9.2 mg/dL Normal 8.6-10.3 [facility] Comment on above: Performed By: #### C BC, PT, HS TROP, PTT, CK, CMP, BNP ####[address] Chloride [Moles/Vol] 99 mmol/L Normal 98-107 [facility] Comment on above: Performed By: #### C BC, PT, HS TROP, PTT, CK, CMP, BNP ####[address] CO2 [Moles/Vol] 27.6 mmol/L Normal 21.0-31.0 [facility] Comment on above: Performed By: #### C BC, PT, HS TROP, PTT, CK, CMP, BNP ####[address] Creatinine [Mass/Vol] 1.28 mg/dL High 0.60-1.20 [facility] Comment on above: Performed By: #### C BC, PT, HS TROP, PTT, CK, CMP, BNP ####[address] Creatinine Clr Calc Pharmacy 28.68 Normal [facility] Comment on above: Result Comment: PERF ORMED BY: [facility] [address] [facility] [place] [address] PATHOLOGIST [employer] MEMBER VITOR ZARATE M.D. Performed By: #### C BC, PT, HS TROP, PTT, CK, CMP, BNP ####[address] GFR/1.73 sq M.predicted MDRD (S/P/Bld) [Vol rate/Area] 42.087 mL/min/{1.73_m2} Normal [facility] Comment on above: Performed By: #### C BC, PT, HS TROP, PTT, CK, CMP, BNP ####[place] [address] [address] Globulin (S) [Mass/Vol] 2.4 g/dL Normal [facility] Comment on above: Performed By: #### C BC, PT, HS TROP, PTT, CK, CMP, BNP ####[address] Glucose [Mass/Vol] 116 mg/dL High 70-100 [facility] Comment on above: Result Comment: [facility] [place][note 2] Glucose Reference Range is dependent on time and content of last meal. Glucose of more than 200 mg/dL in a nonstressed, ambulatory subject supports the diagnosis of Diabetes Mellitus. ADA recommended reference range Performed By: #### C BC, PT, HS TROP, PTT, CK, CMP, BNP ####[address] Potassium [Moles/Vol] 3.5 mmol/L Normal 3.5-5.1 [facility] Comment on above: Performed By: #### C BC, PT, HS TROP, PTT, CK, CMP, BNP ####[address] Protein [Mass/Vol] 6.7 g/dL Normal 6.4-8.9 [facility] Comment on above: Performed By: #### C BC, PT, HS TROP, PTT, CK, CMP, BNP ####[address] Sodium [Moles/Vol] 140 mmol/L Normal 136-145 [facility] Comment on above: Performed By: #### C BC, PT, HS TROP, PTT, CK, CMP, BNP ####[address] Urea nitrogen [Mass/Vol] 25 mg/dL Normal 7-25 [facility] Comment on above: Performed By: #### C BC, PT, HS TROP, PTT, CK, CMP, BNP ####[place] [id number] [facility] Creatine Kinaseon 06-30-2024 CK [Catalytic activity/Vol] 43 U/L Normal 30-223 [facility] Comment on above: Performed By: #### C BC, PT, HS TROP, PTT, CK, CMP, BNP ####[facility] [id number] Creatine kinase [Enzymatic a ctivity/volume] in Serum or PlasmaOrdered By: Vic Mendez on 06-30-2024 CK [Catalytic activity/Vol] Creatine kinase [Enzymatic activity/volume] in Serum or Plasma 30-223 [facility] Creatinine [Mass/volume] in Serum or PlasmaOrdered By: Vic Mendez on 06-30-2024 Creatinine [Mass/Vol] Creatinine [Mass/v olume] in Serum or Plasma High 0.60-1.20 [facility] Digoxinon 06-30-2024 Digoxin [Mass/Vol] 1.7 ng/mL Normal 0.9-2.0 [facility] Comment on above: Result Comment: Last dose: - PERFORMED BY: [place] [address] PATHOLOGIST [employer] MEMBER VITOR ZARATE M.D. Performed By: #### D IG ####[place] [id number] [facility] Digoxin [Mass/volume] in Ser um or PlasmaOrdered By: Vic Mendez on 06-30-2024 Digoxin [Mass/Vol] Digoxin [Mass/volume ] in Serum or Plasma 0.9-2.0 [facility] Comment on above: Last dose: - ECG 12 lead ECGon 06-30-2024 ECG 12 lead ECG [facility] [address] Electrocardiograph Report Signed Patient: Austin Golden MR#: [id number] 8 : 1940 Acct:[id number] Age/Sex: 83 / F ADM Date: 06/30/24 Loc: Room: [address] [place] [address] Type: ADM IN Attending Dr: Shilpa Fenton MD Ordering Provider: Vic Mendez PA-C Date of Service: 06/30/2407/13/1447 ECG/ECG 12 lead ECG: Shortness of Breath/Dyspnea Copies to: Test Reason : Blood Pressure : 146/63 mmHG Vent. Rate : 79 BPM Atrial Rate : 250 BPM P-R Int : * ms QRS Dur : 92 ms QT Int : 360 ms P-R-T Axes : * 12 208 degrees QTcB Int : 412 ms Atrial fibrillation with a competing junctional pacemaker with premature ventricular or aberrantly conducted complexes Nonspecific ST abnormality Confirmed by Nesha Leger MD ([id number]) on 06/30/2024 9:32:03 PM Referred By: Electronically Signed By: Nesha Leger MD Transcribed By: MUS Signed By Nesha Leger MD 06/20 Normal [facility] ECG 12 lead ECG [facility] [address] Electrocardiograph Report Signed Patient: Austin Golden MR#: [id number] 8 : 1940 Acct:[id number] Age/Sex: 83 / F ADM Date: 06/30/24 Loc: Room: [address] [place] [address] Type: ADM IN Attending Dr: Shilpa Fenton MD Ordering Provider: Vic Mendez PA-C Date of Service: 06/30/2407/13/1340 ECG/ECG 12 lead ECG: Shortness of Breath/Dyspnea Copies to: Test Reason : Blood Pressure : 143/62 mmHG Vent. Rate : 100 BPM Atrial Rate : 141 BPM P-R Int : * ms QRS Dur : 114 ms QT Int : 374 ms P-R-T Axes : * -6 177 degrees QTcB Int : 482 ms Atrial fibrillation with premature ventricular or aberrantly conducted complexes EDUARDO lead V1, nonspecific ST findings throughout ST depression laterally Confirmed by Nesha Leger MD ([id number]) on 06/30/2024 9:31:27 PM Referred By: Electronically Signed By: Nesha Leger MD Transcribed By: MUS Signed By Nesha Leger MD 06/20 Normal [facility] Eosinophils Auto (Bld) [#/Vo l]Ordered By: Vic Mendez on 06-30-2024 Eosinophils (Bld) [#/Vol] Automated eosinophil count 0.0-0.45 [facility] Eosinophils/100 WBC Auto (Bl d)Ordered By: Vic Mendez on 06-30-2024 Eosinophils/100 WBC (Bld) Automated eosinophil % . [facility] Erythrocyte distribution wid th Auto (RBC) [Ratio]Ordered By: Vic Mendez on 06-30-2024 Erythrocyte distribution width (RBC) [Ratio] Erythrocyte distribution width [Ratio] by Automated count 11.9-15.3 [facility] Globulin Calc (S) [Mass/Vol] Ordered By: Vic Mendez 06-30-2024 Globulin (S) [Mass/Vol] Serum globulin measurement by calculation (mass/volume) [facility] Glucose [Mass/volume] in Ser um or PlasmaOrdered By: Vic Mendez 06-30-2024 Glucose [Mass/Vol] Glucose [Mass/volume ] in Serum or Plasma High 70-100 [facility] Comment on above: ADA recommended refe rence rangeRandom Glucose Reference Range is dependent on time and content of last meal. Glucose of more than 200 mg/dL in a nonstressed, ambulatory subject supports the diagnosis of Diabetes Mellitus. Hematocrit Auto (Bld) [Volum e fraction]Ordered By: Vic Mendez 06-30-2024 Hematocrit (Bld) [Volume fraction] Hematocrit [Volume Fraction] of Blood by Automated count 34.0-46.4 [facility] Hemoglobin [Mass/volume] in BloodOrdered By: Vic Mendez 06-30-2024 Hemoglobin (Bld) [Mass/Vol] Hemoglobin [Mass/volume] in Blood 11.8-15.4 [facility] INR in Platelet poor plasma by Coagulation assayOrdered By: Vic Mendez 06-30-2024 INR Coag (PPP) [Relative time] INR in Platelet poor plasma by Coagulation assay [facility] Comment on above: INR Therapeutic Rang [...] with mechanical heart valves: 3 - 4.5 Leukocytes [#/volume] correc anne marie for nucleated erythrocytes in Blood by Automated counOrdered By: Vic Mendez 06-30-2024 WBC corrected for nucl RBC Auto (Bld) [#/Vol] Leukocytes [#/volume] corrected for nucleated erythrocytes in Blood by Automated coun 3.8-11.6 [facility] Lymphocytes Auto (Bld) [#/Vo l]Ordered By: Vic Mendez on 06-30-2024 Lymphocytes (Bld) [#/Vol] Lymphocytes [#/volume] in Blood by Automated count 1.00-4.8 [facility] Lymphocytes/100 WBC Auto (Bl d)Ordered By: Vic Mendez on 06-30-2024 Lymphocytes/100 WBC (Bld) Lymphocytes/100 leukocytes in Blood by Automated count . [facility] MCH Auto (RBC) [Entitic mass ]Ordered By: Vic Mendez on 06-30-2024 MCH (RBC) [Entitic mass] MCH [Entitic mass] by Automated count 24.7-34.3 [facility] MCHC Auto (RBC) [Mass/Vol]Or dered By: Vic Mendez on 06-30-2024 MCHC (RBC) [Mass/Vol] MCHC [Mass/volume] by Automated count 32.0-35.0 [facility] MCV Auto (RBC) [Entitic vol] Ordered By: Vic Mendez on 06-30-2024 MCV (RBC) [Entitic vol] MCV [Entitic volume] by Automated count 80-100 [facility] Monocyte distribution width [Entitic volume] in Blood by AutomatedOrdered By: Vic Mendez on 06-30-2024 Monocyte distribution width Auto (Bld) [Entitic vol] Monocyte distribution width [Entitic volume] in Blood by Automated 0.00-20.00 [facility] Monocytes Auto (Bld) [#/Vol] Ordered By: Vic Mendez on 06-30-2024 Monocytes (Bld) [#/Vol] Automated blood monocyte count 0.0-0.8 [facility] Monocytes/100 WBC Auto (Bld) Ordered By: Vic Mendez on 06-30-2024 Monocytes/100 WBC (Bld) Automated monocyte % . [facility] Natriuretic peptide B [Mass/ Vol]Ordered By: Vic Mendez on 06-30-2024 Natriuretic peptide B (Bld) [Mass/Vol] BNP ser/plas 5-100 [facility] Neutrophils Auto (Bld) [#/Vo l]Ordered By: Vic Mendez on 06-30-2024 Neutrophils (Bld) [#/Vol] Neutrophils [#/volume] in Blood by Automated count High 1.8-7.7 [facility] Neutrophils/100 WBC Auto (Bl d)Ordered By: Vic Mendez on 06-30-2024 Neutrophils/100 WBC (Bld) Automated neutrophil % . [facility] No Panel InformationOrdered By: Vic Mendez on 06-30-2024 Estimated GFR (CKD-EPI) 42.087 mL/Min [facility] Creatinine Clearance (Chem 28.68 [facility] Nucleated erythrocytes [Pres ence] in Blood by Automated countOrdered By: Vic Mendez on 06-30-2024 Nucleated RBC Auto Ql (Bld) Nucleated erythrocytes [Presence] in Blood by Automated count 0-0.5 [facility] Partial Thromboplastin Timeo n 06-30-2024 aPTT Coag (Bld) [Time] 30.9 s Normal 25.1-36.5 [facility] Comment on above: Result Comment: A he matocrit value greater than 55% may lead to inaccurate results in coagulation testing. Patients having hematocrit values >55% require a special collection tube for coagulation studies. Please contact the laboratory at [phone] for redraw instructions. PERFORMED BY: [facility] [address] [place] [address] PATHOLOGIST [employer] TE[employer] MEMBER VITOR ZARATE M.D. Performed By: #### C BC, PT, HS TROP, PTT, CK, CMP, BNP ####[facility] [id number] [place] [address] [facility] Platelet mean volume Auto (B ld) [Entitic vol]Ordered By: Vic Mendez on 06-30-2024 Platelet mean volume (Bld) [Entitic vol] Platelet mean volume [Entitic volume] in Blood by Automated count 6.3-10.7 [facility] Platelets Auto (Bld) [#/Vol] Ordered By: Vic Mendez on 06-30-2024 Platelets (Bld) [#/Vol] Platelets [#/volume] in Blood by Automated count 150-450 [facility] Potassium [Moles/volume] in Serum or PlasmaOrdered By: Vic Mendez on 06-30-2024 Potassium [Moles/Vol] Potassium [Moles/v olume] in Serum or Plasma 3.5-5.1 [facility] Protein [Mass/volume] in Ser um or PlasmaOrdered By: Vic Mendez on 06-30-2024 Protein [Mass/Vol] Protein [Mass/volume ] in Serum or Plasma 6.4-8.9 [facility] Prothrombin Time INRon 06-30 INR Coag (PPP) [Relative time] 1.5 {INR} Normal [facility] Comment on above: [...] valves: 3 - 4.5 Performed By: #### C BC, PT, HS TROP, PTT, CK, CMP, BNP ####[facility] [id number] [place] [address] [facility] PT Coag (PPP) [Time] 16.9 s High 9.0-12.9 [facility] Comment on above: Result Comment: A he matocrit value greater than 55% may lead to inaccurate results in coagulation testing. Patients having hematocrit values >55% require a special collection tube for coagulation studies. Please contact the laboratory at [phone] for redraw instructions. Performed By: #### C BC, PT, HS TROP, PTT, CK, CMP, BNP ####[facility] [id number] [place] [address] [facility] Prothrombin time (PT)Ordered By: Vic Mendez on 06-30-2024 PT Coag (PPP) [Time] Prothrombin time (PT) High 9.0- 12.9 [facility] Comment on above: A hematocrit value g reater than 55% may lead to inaccurate results in coagulation testing. Patients having hematocrit values >55% require a special collection tube for coagulation studies. Please contact the laboratory at [phone] for redraw instructions. RBC Auto (Bld) [#/Vol]Ordere d By: Vic Mendez on 06-30-2024 RBC (Bld) [#/Vol] Erythrocytes [#/volu me] in Blood by Automated count 3.60-5.00 [facility] Serum or plasma albumin/glob ulin mass ratioOrdered By: Vic Mendez on 06-30-2024 Albumin/Globulin [Mass ratio] Serum or plasma albumin/globulin mass ratio [facility] Serum or plasma anion gap de terminationOrdered By: Vic Mendez on 06-30-2024 Anion gap [Moles/Vol] Serum or plasma an ion gap determination High 6.0-15.0 [facility] Sodium [Moles/volume] in Ser um or PlasmaOrdered By: Vic Mendez on 06-30-2024 Sodium [Moles/Vol] Sodium [Moles/volume ] in Serum or Plasma 136-145 [facility] Troponin I High Sensitivityo n 06-30-2024 Troponin I High Sensitivity 85.6 pg/mL Off scale high 0.0-15.0 [facility] Comment on above: Result Comment: Crit ical Result : Called to and read back by: ZNEA [id number] at: 06/30/2024 21:50:47 by:[id number] PERFORMED BY: [place] [address] PATHOLOGIST [employer]OC[employer] TE[employer] MEMBER VITOR ZARATE M.D. Performed By: #### H S TROP ####[address] Troponin I High Sensitivity 101.6 pg/mL Off scale high 0.0-15.0 [facility] Comment on above: Result Comment: Crit ical Result : Called to and read back by: TOMMIE FLOYD/ALPA at: 06/30/2024 16:12:30 by:[id number] PERFORMED BY: [place] [address] PATHOLOGIST [employer] TE[employer] MEMBER VITOR ZARATE M.D. Performed By: #### C BC, PT, HS TROP, PTT, CK, CMP, BNP ####[facility] [id number] [place] [address] [place] Troponin I.cardiac [Mass/vol ume] in Serum or Plasma by Detection limit <= 0.01 ng/Ordered By: Vic Mendez on 06-30-2024 Troponin I.cardiac DL <= 0.01 ng/mL [Mass/Vol] Troponin I.cardiac [Mass/volume] in Serum or Plasma by Detection limit <= 0.01 ng/ Critically high 0.0-15.0 [facility] Comment on above: Critical Result : Ca lled to and read back by: TOMMIE FLOYD/ER at: 06/30/2024 16:12:30 by:[id number] Urea nitrogen [Mass/volume] in Serum or PlasmaOrdered By: Vic Mendez on 06-30-2024 Urea nitrogen [Mass/Vol] Urea nitrogen [Mass/volume] in Serum or Plasma 7-25 [facility] WBC Auto (Bld) [#/Vol]Ordere d By: Vic Mendez on 06-30-2024 WBC (Bld) [#/Vol] Leukocytes [#/volume ] in Blood by Automated count 3.8-11.6 [facility] X-ray reportOrdered By: Jadiel Borja on 06-30-2024 Study report [facility] [address] XRay Report Signed Patient: Austin Golden MR#: [id number] : 1940 Acct:[id number] Age/Sex: 83 / F ADM Date: 4 Loc: ER Room: Type: [facility] ER Attending Dr: Copies to: Vic Mendez PA-C~ Ordering Provider: Vic Mendez PA-C Date of Service: 06/30/24 XR/XR chest 2V*: Shortness of Breath/Dyspnea Plain film chest 2 view HISTORY: Shortness of breath. Midsternal chest pain. COMPARISON: 01/18/24 FINDINGS: SUPPORT DEVICES: None POSTSURGICAL CHANGES: Cardiac device remains intact HEART: Within normal limits PULMONARY JANNIE: Within normal limits MEDIASTINUM: Unremarkable LUNGS AND PLEURA: No acute lung process, pleural effusion or pneumothorax identified. BONY STRUCTURES: Intact ADDITIONAL FINDINGS None XR/XR chest 2V* IMPRESSION: No acute process. Impression dictated by: Juanito Borja M.D.06/30/2024 3:39 PM Dictation Location: [place] [address] Transcribed By: [facility] 06/30/24 153 Dictated By: Juanito Borja DO 06/30/241536 Signed By: 06/30/24 1539 [facility] XR chest 2V*on 06-30-2024 XR chest 2V* [facility] [address] XRay Report Signed Patient: Austin Golden MR#: [id number] 8 : 1940 Acct:[id number] Age/Sex: 83 / F ADM Date: 06/30/24 Loc: ER Room: Type: [facility] Attending Dr: Copies to: Vic Mendez PA-C Ordering Provider: Vic Mendez PA-C Date of Service: 06/30/24 XR/XR chest 2V*: Shortness of Breath/Dyspnea Plain film chest 2 view HISTORY: Shortness of breath. Midsternal chest pain. COMPARISON: 01/18/24 FINDINGS: SUPPORT DEVICES: None POSTSURGICAL CHANGES: Cardiac device remains intact HEART: Within normal limits PULMONARY JANNIE: Within normal limits MEDIASTINUM: Unremarkable LUNGS AND PLEURA: No acute lung process, pleural effusion or pneumothorax identified. BONY STRUCTURES: Intact ADDITIONAL FINDINGS None XR/XR chest 2V* IMPRESSION: No acute process. Impression dictated by: Juanito Borja M.D.06/30/2024 3:39 PM Dictation Location: [place] [address] Transcribed By: [facility] 06/30/24 1539 Dictated By: Juanito Borja DO 06/30/241536 Signed By: 06/30/24 153 Normal [facility] aPTT in Platelet poor plasma by Coagulation assayOrdered By: Vic Mendez on 06-30-2024 aPTT Coag (PPP) [Time] Activated partial thromboplastin time (aPTT) in platelet poor plasma by coagulation a 25.1-36.5 [facility] Comment on above: A hematocrit value g reater than 55% may lead to inaccurate results in coagulation testing. Patients having hematocrit values >55% require a special collection tube for coagulation studies. Please contact the laboratory at [phone] for redraw instructions. 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 INTRA-PROCEDURE MEDS: Barium Sulfate 60 % 200 mL Route: OralBarium Sulfate 98 % suspension 100 mL Route: OralBarium Sulfate 1 Tab Route: Oral FINDINGS: Investment Bank[employer] Associate fluoroscopic spot images of the abdomen: Non-obstructive intestinal gas pattern. No sub-diaphragmatic free air. Dual-lead cardiac device with leads projecting over the right ventricle and right atrial appendage. Timed: Moderate contrast residual in the distal esophagus on the 0 minute image was cleared by 1 minute. Swallowing: Swallowing mechanism is intact. No laryngeal penetration, tracheal aspiration or nasopharyngeal reflux. Symmetric and normal appearing valleculae and pyriform sinuses. 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 Esophagus: Tortuous distal esophagus with normal caliber. Short segment of narrowing at the proximal stomach, likely due to previous fundoplication wrap. Stricture is not excluded Hiatal hernia: Small sliding (type I) hiatal hernia. 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 Barium Tablet: Impedance to the passage of a 1.3 cm tablet in the small hiatal hernia. IMPRESSION: 1. Small sliding (type I) hiatal hernia which caused impedance to the passage of a 1.3 cm tablet in the small hiatal hernia. 2. Spontaneous gastroesophageal reflux to the level of the aortic arch. 3. Short segment of narrowing at the proximal stomach, likely due to previous fundoplication wrap. Stricture is not excluded 4. Nonspecific esophageal motility disorder. 5. Cricopharyngeus bar. MACRO: None I have personally reviewed the images and agree with the resident's interpretation. 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 INTRA-PROCEDURE MEDS: Barium Sulfate 60 % 200 mL Route: OralBarium Sulfate 98 % suspension 100 mL Route: OralBarium Sulfate 1 Tab Route: Oral FINDINGS: Investment Banking Associate fluoroscopic spot images of the abdomen: Non-obstructive intestinal gas pattern. No sub-diaphragmatic free air. Dual-lead cardiac device with leads projecting over the right ventricle and right atrial appendage. Timed: Moderate contrast residual in the distal esophagus on the 0 minute image was cleared by 1 minute. Swallowing: Swallowing mechanism is intact. No laryngeal penetration, tracheal aspiration or nasopharyngeal reflux. Symmetric and normal appearing valleculae and pyriform sinuses. 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 Esophagus: Tortuous distal esophagus with normal caliber. Short segment of narrowing at the proximal stomach, likely due to previous fundoplication wrap. Stricture is not excluded Hiatal hernia: Small sliding (type I) hiatal hernia. 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 Barium Tablet: Impedance to the passage of a 1.3 cm tablet in the small hiatal hernia. IMPRESSION: 1. Small sliding (type I) hiatal hernia which caused impedance to the passage of a 1.3 cm tablet in the small hiatal hernia. 2. Spontaneous gastroesophageal reflux to the level of the aortic arch. 3. Short segment of narrowing at the proximal stomach, likely due to previous fundoplication wrap. Stricture is not excluded 4. Nonspecific esophageal motility disorder. 5. Cricopharyngeus bar. MACRO: None I have personally reviewed the images and agree with the resident's interpretation. 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 INTRA-PROCEDURE MEDS: Barium Sulfate 60 % 200 mL Route: OralBarium Sulfate 98 % suspension 100 mL Route: OralBarium Sulfate 1 Tab Route: Oral FINDINGS: Investment Banking Associate fluoroscopic spot images of the abdomen: Non-obstructive intestinal gas pattern. No sub-diaphragmatic free air. Dual-lead cardiac device with leads projecting over the right ventricle and right atrial appendage. Timed: Moderate contrast residual in the distal esophagus on the 0 minute image was cleared by 1 minute. Swallowing: Swallowing mechanism is intact. No laryngeal penetration, tracheal aspiration or nasopharyngeal reflux. Symmetric and normal appearing valleculae and pyriform sinuses. 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 Esophagus: Tortuous distal esophagus with normal caliber. Short segment of narrowing at the proximal stomach, likely due to previous fundoplication wrap. Stricture is not excluded Hiatal hernia: Small sliding (type I) hiatal hernia. 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 Barium Tablet: Impedance to the passage of a 1.3 cm tablet in the small hiatal hernia. IMPRESSION: 1. Small sliding (type I) hiatal hernia which caused impedance to the passage of a 1.3 cm tablet in the small hiatal hernia. 2. Spontaneous gastroesophageal reflux to the level of the aortic arch. 3. Short segment of narrowing at the proximal stomach, likely due to previous fundoplication wrap. Stricture is not excluded 4. Nonspecific esophageal motility disorder. 5. Cricopharyngeus bar. MACRO: None I have personally reviewed the images and agree with the resident's interpretation. [facility] Radiology Study observation (narrative) [facility] RF videography Hypopharynx a nd Esophagus Views W liquid and paste contrast PO during swallowingOrdered By: Ivonne Brooks on 06-26-2024 [facility] Work Phone: Telephone Encounteron 2023 [employer] Outseamer Authentication Interface Message Text Dr العلي office calling waiting for order to be placed for timed barium esophagogram Jazmin العلي [address] [facility] [address] option #[address] العلي's nurse line Leela Encounter dated 05/29/[address] Yung Recommendations: Obtain timed barium esophagram or endoflip to confirm diagnosis. Dr Yung recommended pt has this procedure Telephone Information: Normal [facility] Telephone Encounteron 2023 [employer] Authentication Interface Message Text Will forward to Dr. Katie Yung. Normal [facility] Telephone Encounteron 2023 [employer] Authentication Interface Message Text Sanjuana from [facility] called and wanted to discuss nausea and weakness and unable to eat would like call to discuss Sanjuana [phone] Opt 1 then opt 3 Normal [facility] Anesthesia Postprocedure Taylor luationon 05-30-2024 [employer] Authentication Interface Message Text Anesthesia Postoperative Assessment: Vital Signs (most recent): BP 119/64 Pulse 93 Temp 35.8 ???C (96.5 ???F) (Temporal) Resp 17 SpO2 100% Anesthesia Post Evaluation Level of consciousness: awake Post-procedure exam normal. Body temperature, hydration status, PONV and pain evaluated and addressed. Pain management: adequate Hydration status: normal PONV:No nausea/vomiting reported Cardiopulmonary status stable Respiratory status: acceptable Cardiovascular status: acceptable ANESTHESIA NOTABLE EVENTS: No notable events documented. Normal [facility] Anesthesia Preprocedure Eval uationon 05-29-2024 [employer] Authentication Interface Message Text ASA: 2 No history of anesthetic complications Past Medical History and Review of Systems Pulmonary Dental - negative ROS Endo Neuro/Psych - negative ROS Cardiovascular (+) arrhythmia, Surgical risk: intermediate; Cardiac condition: no apparent No previous ECG available GI/Hepatic/Renal - negative ROS Heme/Other - negative ROS Other ROS: No past medical history on file. Physical Exam Airway Mallampati: II TM distance: Adequate Micrognathia: Not present Jaw opening: Adequate Neck flexion: Adequate Dental Pulmonary - pulmonary exam normal Cardiovascular - cardiovascular exam normal Neuro - neurological exam normal Plan Anesthesia plan: MAC; (NC) Anesthesia risks / alternatives discussed pre-op Questions answered / anesthesia plan accepted Past medical history, surgical history, allergies, and medications reviewed. Pertinent laboratory tests, EKG, imaging, and consults reviewed and I have personally seen and evaluated the patient, repeating shea portions of the history and physical examination. Attestation: Anesthesia options were discussed with the patient and/or legal teleservices representative. The risks, benefits and alternatives were reviewed. Questions regarding anesthesia were answered. Patient and/or legal teleservices representative knows such anesthetics and procedures may be performed by Resident physicians, Certified Anesthesiologist Assistants, or Certified Nurse Anesthetists under the supervision of a physician. The patient /or the patient's legal teleservices representative agree with the plan for anesthesia. MHPATFORM Normal [facility] Anesthesia Transfer Of Careo n 05-29-2024 [employer] Authentication Interface Message Text Patient taken to PACU. Patient was drowsy, comfortable, and stable on arrival. Anesthesia Transfer of Care Note Past Medical History: No past medical history on file. Sleep Apnea/Positive STOP-BANG: No Problem List: There is no problem list on file for this patient. Past Surgical History: There is no previous surgical history on file. Allergies: Fentanyl Basic Operating Room Facts: Surgeon(s): Katie Yung MD Anesthesiologist: Syed Schmidt MD DEVELOPMENTAL PSYCHOLOGIST: Maggie Angela APRN-ANDREA ESOPHAGOGASTRODUODENOSCOPY with HREM catheter placement Intraoperative Events: No acute event ASA: 2 EBL: Not documented Urine Not documented Lactated Ringers and NaCl 0.9%: Fluid Totals (Filter: LR and NaCl 0.9% Medications Shown) Medication Calculated Total No medications were administered. Cell Saver: Not documented Blood Volume Values: Blood Products None MTP Blood: MTP PRBC: Not documented MTP FFP: Not documented MTP PLT: Not documented MTP Cryo: Not documented MTP Whole Blood: Not documented Current Vasoactive Medications: {Vasoactive Medications: None Lines, Drains, Airways Airway Adjunct: (Active) Airway Insertion Details * No LDAs found * All non-working IVs have been removed: N/A Laboratory Data: CBC (last 3 years, up to 8 values) No lab values to display. BMP (last 3 years, up to 8 values) No lab values to display. Basic Metabolic Panel No lab values to display. No results found for: INR No result for BNP LFT's (last 3 years, up to 8 values) No lab values to display. Arterial Blood Gases None Hand off Completed: Yes 1. The patient was identified. 2. Pertinent medical history was relayed. 3. A brief discussion was had about any pertinent surgical/ procedural issues. 4. Intraoperative/ anesthetic management issue and concerns were discussed. 5. Plans for the early post-operative period relayed. 6. An opportunity for questions and acknowledgment of understanding of the report was received. Maggie Angela APRN-ANDREA Normal [facility] OP Noteon 05-29-2024 [employer] Authentication Interface Message Text Patient's Name: Austin Golden Date: 05/29/24 Written informed consent obtained from patient. Endoscopic procedure risks (including but not limited to perforation, infection, bloating and bleeding) benefits and alternatives explained and questions answered. Patient verbalized understanding. Based on history and airway assessment patient is not an appropriate candidate for moderate sedation and will undergo sedation with the assistance of anesthesia physician/DEVELOPMENTAL PSYCHOLOGIST team. Please see corresponding note for full details. Katie Yung MD 05/29/24 1:08 PM Austin Golden 83 year old Surgical Contact Serial Number: [id number] Location: [place] [id number] Date: 05/29/2024 WHEELMAN: Katie Yung MD ATTENDING:Katie Yung MD Procedure(s): ESOPHAGOGASTRODUODENOSCOPY with HREM catheter placement SEDATION: Anesthesia Assisted Pre-Op Diagnosis Codes: * Esophageal dysphagia [R13.19] INDICATIONS: This is a 83 year old female with: a history dysphagia and unable to pass manometry catheter in lab, here for EGD for catheter placement under While monitoring the patient with EKG, pulse oximetry and BP, endoscope passed to second portion of duodenum by direct visualization. DUODENUM: bulb and descending portion appeared normal. 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 There is also a narrowed area of the proximal stomach that extends from 35 to 32cm from the incisors. On retroflexion this appears almost as a partial fundoplication. The mucosa in this region has a metaplastic pattern. It is possible this is a diaphragmatic hernia however there is no clear respiratory variation, so I am not certain what the etiology of this is. Otherwise, pyloric channel, antrum, body, fundus and cardia, including retroflexed views appear normal. ESOPHAGUS: diaphragmatic hiatus was 35 cm from incisors and GE junction (upper margin of gastric folds) was at 32 cm from incisors. Squamocolumnar junction was at 32 cm from incisors. There is a schatzki ring at the GEJ that is non-obstructive. The distal esophagus is mildly dilated. Scope was withdrawn and HREM catheter was placed via right nare. 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 A snare catheter was used to mobilize the manometry catheter after which it was able to enter the stomach. Scope then withdrawn and procedure concluded. Catheter advanced to 50cm. Taped to right cheek. Esophageal dysphagia [219224] TEE PATH SPECIMEN SENT: no SPECIMEN: None PHOTOGRAPH TAKEN:yes COMPLICATIONS DURING PROCEDURE: None EBL (estimated blood loss): none IMPRESSION: 1. Tortuous and dilated distal esophagus with pooling of fluid in the distal esophagus suggestive of stasis due to dysmotility or obstruction 2. 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 Narrowed area of proximal stomach of unclear etiology (h/o fundoplication? vs external compression?) 4. Successful manometry catheter placement RECOMMENDATIONS: 1. F/u HREM results 2. F/U with PCP. 3. F/u with Amna Powell at [facility] CC: Primary Care Provider: No primary care provider on file. PERSON COMPLETING NOTE: Katie Yung MD 05/29/2024 at 1:08 PM Patient meets criteria for discharge/transfer: Katie Yung MD Normal [facility] Procedureson 05-29-2024 [employer] Authentication Interface Message Text High Resolution Esophageal Manometry (HREM) Name: Austin Golden : 1940 Indication: Esophageal dysphagia [[id number]] Attending: Katie Yung MD no referring provider Operating Lavatory Attendant: Jennifer Proctor LPN LES [place] Residual Median (IRP) (mmHg) 17.4 16.1 Basal Respiratory Mean (mmHg) 20.1 22.5 Residual Mean (mmHg) 17.6 18.6 UES [place]PINE UPRIGHT Mean Basal Pressure (mmHg) 24.4 12.3 Esophagus SUPINE UPRIGHT Distal Contractile Integral (mean)(mmHg-cm-s) 2756.8 3311.0 Distal Latency 6.3 5.9 Swallow Results # FailedSwallows 0 # Weak Swallows 0 # Intact Swallows 10 Rapid Swallow Challenge: 0 Min 28 Sec. Findings: Median IRP: high LES resting pressure: normal % Failed Swallows: 0 % Weak Swallows: 0 % Normal Swallows: 100 Conclusion: Suspicious for EGJOO. 1-2cm hiatal hernia. The catheter appears to have coiled in the stomach but this does not appear to affect the findings within the esophagus. Recommendations: Obtain timed barium esophagram or endoflip to confirm diagnosis. Katie Yung MD Invalid Interpretation Code [facility] Estimated glomerular filtrat ion rate (GFR) non- Americanon 05-28-2024 GFR/1.73 sq M.predicted among non-blacks MDRD (S/P/Bld) [Vol rate/Area] 30 mL/min/{1.73_m2} Low >=60 mL/min/1.[address] [place] [address] GFR/1.73 sq M.predicted among non-blacks MDRD (S/P/Bld) [Vol rate/Area] Estimated glomerular filtration rate (GFR) non- Low >=60 mL/min/1.[address] [place] [address] Laboratory - Chemistry and C hemistry - challengeon 05-28-2024 Calcium [Mass/Vol] 9.2 mg/dL 8.5-10.1 [facility] Chloride [Moles/Vol] 97 mmol/L Low 98-107 [facility] CO2 [Moles/Vol] 27.8 mmol/L 21.0-32.0 [facility] Creatinine [Mass/Vol] 1.64 mg/dL High 0.55-1.02 [facility] GFR/1.73 sq M.predicted MDRD (S/P/Bld) [Vol rate/Area] 36 mL/min/{1.73_m2} Low >=60 mL/min/1.[address] [place] [address] Glucose [Mass/Vol] 178 mg/dL High 74-106 [facility] Natriuretic peptide B (Bld) [Mass/Vol] 1199.0 pg/mL <=1800.0 [facility] Potassium [Moles/Vol] 3.2 mmol/L Low 3.5-5.1 [facility] Sodium [Moles/Vol] 137 mmol/L 136-145 [facility] Urea nitrogen [Mass/Vol] 22.0 mg/dL High 7.0-18.0 [facility] Urea nitrogen/Creatinine [Mass ratio] 13.4 mg/mg [facility] No Panel Informationon 05-28 Digoxin Level 2.1 ng/mL High 0.9-2.0 [facility] Serum or plasma anion gap de terminationon 05-28-2024 Anion gap [Moles/Vol] 15.4 mmol/L [facility] Anion gap [Moles/Vol] Serum or plasma an ion gap determination [facility] Digoxin [Mass/volume] in Ser um or PlasmaOrdered By: Maxwell Medrano on 04-24-2024 Digoxin [Mass/Vol] 1.8 ng/mL Normal 0.9-2.0 [facility] Comment on above: Last dose: - Result Comment: Last dose: - PERFORMED BY: [facility] [address] [place] [address] PATHOLOGIST [employer]OC[employer] TEAM MEMBER VITOR ZARATE M.D. Performed By: #### T SH3, DIG ####[facility] [place] [address] [facility] Digoxin [Mass/Vol] Digoxin [Mass/volume ] in Serum or Plasma 0.9-2.0 [facility] Comment on above: Last dose: - ECG 12 Leadon 04-24-2024 Rhythm appears to be atrial fibrillation with slightly elevated heart [facility] Work Phone: Thyrotropin [Units/volume] i n Serum or PlasmaOrdered By: Maxwell Medrano on 04-24-2024 TSH Qn 1.25 m[IU]/L Normal 0.45-5.33 [facility] Comment on above: Result Comment: PERF ORMED BY: [facility] [address] [place] [id number] PATHOLOGIST GROCERY TEAM MEMBER VITOR ZARATE M.D. Performed By: #### T SH3, DIG ####[facility] [address] [place] [id number] [facility] TSH Qn Thyrotropin [Units/v olume] in Serum or Plasma 0.45-5.33 [facility] ECG 12 lead (Clinic Performe d)on 04-17-2024 EKG performed today shows atrial flutter atypical at a rate of 83 bpm QRS duration 70 ms QT corrected 450 ms. Rhythm strip shows the same pattern. [facility] Work Phone: [facility] Work Phone: Laboratory - Chemistry and C hemistry - challengeon 04-08-2024 Bilirubin Ql (U) Negative [facility] Glucose (U) [Mass/Vol] Negative [facility] Ketones Ql (U) Negative [facility] pH (U) 5.0 [pH] [facility] Specific gravity (U) [Rel density] 1.015 [facility] Urobilinogen (U) [Mass/Vol] 0.2 mg/dL [facility] Laboratory - Specimen inform ationon 04-08-2024 Appearance (U) clear [facility] Color (U) yellow [facility] Laboratory - Urinalysison Leukocyte esterase Test strip Ql (U) Negative [facility] Nitrite Ql (U) Negative [facility] Protein Ql (U) ++ [facility] No Panel Informationon 04-08 Urine Occult Blood Negative [facility] ECG 12-LEADon 03-27-2024 ECG 12-LEAD Ventricular Rate 83 Atrial Rate 83 P-R Interval 200 QRS Duration 78 Q-T Interval 386 QTC Calculation(Bazett) 453 P Scio 132 R Scio 1 T Scio 185 QRS Count 13 Q Onset 224 T Offset 417 QTC Fredericia 430 Diagnosis Atypical Atrial flutter Cannot rule out Anterior infarct (cited on or before 27-MAR-2024) ST & T wave abnormality, consider inferolateral ischemia Abnormal ECG When compared with ECG of 27-MAR-2024 06:36, Inverted T waves have replaced nonspecific T wave abnormality in Anterior leads QT has lengthened Confirmed by Katie Asencio ([id number]) on 03/29/2024 12:51:06 PM Normal [facility] ECG 12-LEAD Ventricular Rate 84 Atrial Rate 267 QRS Duration 84 Q-T Interval 312 QTC Calculation(Bazett) 368 R Scio 6 T Scio 192 QRS Count 14 Q Onset 221 P Onset 124 P Offset 162 T Offset 377 QTC Fredericia 348 Diagnosis atypical atrial flutter Cannot rule out Anterior infarct , age undetermined ST & T wave abnormality, consider inferolateral ischemia Abnormal ECG Confirmed by Maxwell Medrano ([id number]) on 03/27/2024 9:02:15 AM Normal [facility] ECG 12-LEADon 03-26-2024 ECG 12-LEAD Ventricular Rate 83 Atrial Rate 83 P-R Interval 212 QRS Duration 82 Q-T Interval 370 QTC Calculation(Bazett) 434 P Scio 74 R Scio 1 T Scio 196 QRS Count 13 Q Onset 223 P Onset 117 P Offset 156 T Offset 408 QTC Fredericia 412 Diagnosis atypical atrial flutter ST & T wave abnormality, consider inferior ischemia ST & T wave abnormality, consider anterolateral ischemia Abnormal ECG Reconfirmed by Maxwell Medrano ([id number]) on 03/26/2024 5:02:48 PM Normal [facility] ECG 12-LEAD Ventricular Rate 82 Atrial Rate 82 P-R Interval 204 QRS Duration 78 Q-T Interval 356 QTC Calculation(Bazett) 415 P Scio 95 R Scio 9 T Scio 194 QRS Count 14 Q Onset 221 P Onset 119 P Offset 154 T Offset 399 QTC Fredericia 395 Diagnosis atypical atrial flutter ST & T wave abnormality, consider inferior ischemia ST & T wave abnormality, consider anterolateral ischemia Abnormal ECG Reconfirmed by Maxwell Medrano ([id number]) on 03/26/2024 5:02:17 PM Normal [facility] ECG 12-LEAD Ventricular Rate 82 Atrial Rate 82 P-R Interval 198 QRS Duration 84 Q-T Interval 388 QTC Calculation(Bazett) 453 P Scio 97 R Scio 5 T Scio 199 QRS Count 13 Q Onset 220 P Onset 121 P Offset 159 T Offset 414 QTC Fredericia 430 Diagnosis atypical atrial flutter ST & T wave abnormality, consider inferolateral ischemia Abnormal ECG Reconfirmed by Maxwell Medrano ([id number]) on 03/26/2024 5:01:47 PM Normal [facility] ECG 12-LEADon 03-25-2024 ECG 12-LEAD Ventricular Rate 70 Atrial Rate 70 P-R Interval 204 QRS Duration 76 Q-T Interval 384 QTC Calculation(Bazett) 414 R Scio -4 T Scio 191 QRS Count 12 Q Onset 226 T Offset 418 QTC Fredericia 404 Diagnosis Atrial-paced rhythm Inferior infarct , age undetermined Cannot rule out Anterior infarct , age undetermined ST & T wave abnormality, consider lateral ischemia Abnormal ECG When compared with ECG of 25-MAR-2024 08:52, No significant change was found Confirmed by Maxwell Medrano ([id number]) on 03/26/2024 5:00:38 PM Normal [facility] ECG 12-LEAD Ventricular Rate 70 Atrial Rate 69 P-R Interval 200 QRS Duration 76 Q-T Interval 400 QTC Calculation(Bazett) 432 R Scio 1 T Scio 189 QRS Count 11 Q Onset 220 T Offset 420 QTC Fredericia 421 Diagnosis Atrial-paced rhythm ST & T wave abnormality, consider inferior ischemia ST & T wave abnormality, consider anterolateral ischemia Abnormal ECG Confirmed by Maxwell Medrano ([id number]) on 03/25/2024 10:00:04 AM Normal [facility] ECG 12-LEAD Ventricular Rate 84 Atrial Rate 84 P-R Interval 206 QRS Duration 82 Q-T Interval 348 QTC Calculation(Bazett) 411 P Scio 90 R Scio -11 T Scio 181 QRS Count 13 Q Onset 225 P Onset 122 P Offset 165 T Offset 399 QTC Fredericia 389 Diagnosis Atypical atrial flutter Inferior infarct , age undetermined ST & T wave abnormality, consider anterolateral ischemia Abnormal ECG Confirmed by Maxwell Medrano ([id number]) on 03/25/2024 9:59:54 AM Normal [facility] ECG 12-LEAD Ventricular Rate 93 Atrial Rate 93 P-R Interval 90 QRS Duration 80 Q-T Interval 368 QTC Calculation(Bazett) 457 R Scio 13 T Scio 213 QRS Count 15 Q Onset 221 P Onset 176 P Offset 198 T Offset 405 QTC Fredericia 426 Diagnosis atypical atrial flutter ST & T wave abnormality, consider inferior ischemia ST & T wave abnormality, consider anterolateral ischemia Abnormal ECG Confirmed by Maxwell Medrano ([id number]) on 03/25/2024 9:59:32 AM Normal [facility] ECG 12-LEADon 03-24-2024 ECG 12-LEAD Ventricular Rate 87 Atrial Rate 267 QRS Duration 74 Q-T Interval 324 QTC Calculation(Bazett) 389 R Scio -7 T Scio 194 QRS Count 15 Q Onset 221 T Offset 383 QTC Fredericia 366 Diagnosis Atrial fibrillation with occasional ventricular-paced complexes Inferior infarct , age undetermined ST & T wave abnormality, consider lateral ischemia Abnormal ECG When compared with ECG of 23-MAR-2024 12:21, (unconfirmed) Vent. rate has increased BY 10 BPM Confirmed by Katie Asencio ([id number]) on 03/24/2024 5:29:54 PM Normal [facility] ECG 12-LEADon 03-23-2024 ECG 12-LEAD Ventricular Rate 77 Atrial Rate 394 QRS Duration 76 Q-T Interval 324 QTC Calculation(Bazett) 366 R Scio -2 T Scio 190 QRS Count 12 Q Onset 221 T Offset 383 QTC Fredericia 352 Diagnosis Atrial fibrillation with frequent ventricular-paced complexes Inferior infarct , age undetermined Cannot rule out Anterior infarct , age undetermined ST & T wave abnormality, consider lateral ischemia Abnormal ECG When compared with ECG of 23-MAR-2024 06:23, (unconfirmed) Vent. rate has decreased BY 6 BPM Confirmed by Katie James ([id number]) on 03/24/2024 10:23:54 AM Normal [facility] ECG 12-LEAD Ventricular Rate 83 Atrial Rate 394 QRS Duration 74 Q-T Interval 330 QTC Calculation(Bazett) 387 R Scio -7 T Scio 181 QRS Count 14 Q Onset 221 T Offset 386 QTC Fredericia 367 Diagnosis Atrial fibrillation with frequent ventricular-paced complexes Inferior infarct , age undetermined ST & T wave abnormality, consider anterolateral ischemia Abnormal ECG When compared with ECG of 22-MAR-2024 11:37, (unconfirmed) Electronic ventricular 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 Sinus rhythm Confirmed by Katie James ([id number]) on 03/24/2024 10:23:04 AM Normal [facility] ECG 12-LEADon 03-22-2024 ECG 12-LEAD Ventricular Rate 89 Atrial Rate 89 P-R Interval 194 QRS Duration 84 Q-T Interval 328 QTC Calculation(Bazett) 399 P Scio 99 R Scio -2 T Scio 187 QRS Count 15 Q Onset 222 P Onset 125 P Offset 163 T Offset 386 QTC Fredericia 373 Diagnosis Normal sinus rhythm ST & T wave abnormality, consider inferolateral ischemia Abnormal ECG No previous ECGs available Confirmed by Katie James ([id number]) on 03/24/2024 10:22:29 AM Normal [facility] Basophils Auto (Bld) [#/Vol] on 03-21-2024 Basophils (Bld) [#/Vol] 0.0 10 3/uL 0.0-0.1 [facility] Basophils/100 WBC Auto (Bld) on 03-21-2024 Basophils/100 WBC (Bld) 0.3 % 0.2-2.0 [facility] Eosinophils/100 WBC Auto (Bl d)on 03-21-2024 Eosinophils/100 WBC (Bld) 0.7 % Low 0.9-7.0 [facility] Erythrocyte distribution wid th Auto (RBC) [Ratio]on 03-21-2024 Erythrocyte distribution width (RBC) [Ratio] 15.0 % 11.0-15.0 [facility] Estimated glomerular filtrat ion rate (GFR) non- Americanon 03-21-2024 GFR/1.73 sq M.predicted among non-blacks MDRD (S/P/Bld) [Vol rate/Area] 45 mL/min/{1.73_m2} Low >=60 [facility] Hematocrit Auto (Bld) [Volum e fraction]on 03-21-2024 Hematocrit (Bld) [Volume fraction] 37.3 % 36.0-48.0 [facility] Hemoglobin [Mass/volume] in Bloodon 03-21-2024 Hemoglobin (Bld) [Mass/Vol] 12.6 g/dL 12.0-16.0 [facility] Laboratory - Chemistry and C hemistry - challengeon 03-21-2024 Calcium [Mass/Vol] 9.0 mg/dL 8.5-10.1 [facility] Chloride [Moles/Vol] 105 mmol/L 98-107 [facility] CO2 [Moles/Vol] 25.7 mmol/L 21.0-32.0 [facility] Creatinine [Mass/Vol] 1.16 mg/dL High 0.55-1.02 [facility] GFR/1.73 sq M.predicted MDRD (S/P/Bld) [Vol rate/Area] 54 mL/min/{1.73_m2} Low >=60 [facility] Glucose [Mass/Vol] 127 mg/dL High 74-106 [facility] Potassium [Moles/Vol] 3.9 mmol/L 3.5-5.1 [facility] Sodium [Moles/Vol] 139 mmol/L 136-145 [facility] Urea nitrogen [Mass/Vol] 26.0 mg/dL High 7.0-18.0 [facility] Urea nitrogen/Creatinine [Mass ratio] 22.4 mg/mg [facility] Laboratory - Hematology and Cell countson 03-21-2024 Immature granulocytes/100 WBC (Bld) 0.6 % High 0.0-0.5 [facility] Leukocytes [#/volume] correc anne marie for nucleated erythrocytes in Blood by Automated counon 03-21-2024 WBC corrected for nucl RBC Auto (Bld) [#/Vol] 6.8 10 3/uL 4.0-11.0 [facility] Lymphocytes Auto (Bld) [#/Vo l]on 03-21-2024 Lymphocytes (Bld) [#/Vol] 1.8 10 3/uL 1.2-3.8 [facility] Lymphocytes/100 WBC Auto (Bl d)on 03-21-2024 Lymphocytes/100 WBC (Bld) 26.9 % 20.5-60.0 [facility] MCH Auto (RBC) [Entitic mass ]on 03-21-2024 MCH (RBC) [Entitic mass] 33.2 pg 26.7-34.0 [facility] MCHC Auto (RBC) [Mass/Vol]on 03-21-2024 MCHC (RBC) [Mass/Vol] 33.8 g/dL 29.9-35.2 [facility] MCV Auto (RBC) [Entitic vol] on 03-21-2024 MCV (RBC) [Entitic vol] 98.2 fL 81.0-99.0 [facility] Monocytes Auto (Bld) [#/Vol] on 03-21-2024 Monocytes (Bld) [#/Vol] 0.5 10 3/uL 0.3-0.8 [facility] Monocytes/100 WBC Auto (Bld) on 03-21-2024 Monocytes/100 WBC (Bld) 6.9 % 1.7-12.0 [facility] Neutrophils Auto (Bld) [#/Vo l]on 03-21-2024 Neutrophils (Bld) [#/Vol] 4.4 10 3/uL 1.4-6.5 [facility] Neutrophils/100 WBC Auto (Bl d)on 03-21-2024 Neutrophils/100 WBC (Bld) 64.6 % 43.0-75.0 [facility] No Panel Informationon 03-21 Troponin I High Sensitivity 96.6 pg/mL High 4.0-51.3 [facility] Comment on above: RESULTS CALLED TO ANTONIA MCGILLRNCUT-OFF POINTS HAVE BEEN ESTABLISHED BASED ON THE FOURTHIVERSAL DEFINITION OF MYOCARDIAL INFARCTION. THE UPPERREFERENCE LIMIT (URL) OF TROPONIN, DEFINED THE 99THPERCENTILE OF cTnI DISTRIBUTION IN A REFERENCE POPULATION,HAS BEEN CONFIRMED THE DECISION THRESHOLD FOR MIDIAGNOSIS.99TH PERCENTILE = 51.4 PG/MLNOTE: HIGH-SENSITIVITY TROPONIN ASSAY IS NOT INTENDED TO BEUSED IN ISOLATION BUT SHOULD BE INTERPRETED IN CONJUNCTIONWITH OTHER DIAGNOSTIC AND CLINICAL INFORMATION. Eosinophils # (Auto) 0.1 10 3/uL 0.0-0.7 [facility] Immature Granulocyte # (Auto) 0.04 10 3/uL High 0.00-0.03 [facility] Platelet mean volume Auto (B ld) [Entitic vol]on 03-21-2024 Platelet mean volume (Bld) [Entitic vol] 10.0 fL 9.5-13.5 [facility] Platelets Auto (Bld) [#/Vol] on 03-21-2024 Platelets (Bld) [#/Vol] 222 10 3/uL 150-450 [facility] RBC Auto (Bld) [#/Vol]on RBC (Bld) [#/Vol] 3.80 10 6/uL Low 4.20-5.40 [facility] Serum or plasma anion gap de terminationon 03-21-2024 Anion gap [Moles/Vol] 12.2 mmol/L [facility] ECG 12 Leadon 02-28-2024 [facility] Work Phone: EKG performed today shows atrial flutter atypical at a rate of 95 bpm QRS duration 76 ms QT corrected 402 ms. Rhythm strip shows the same pattern. [facility] Work Phone: [facility] Work Phone: ECG 12 Leadon 02-25-2024 Atrial flutter with 221 AV block CPACS [facility] Work Phone: Basophils Auto (Bld) [#/Vol] on 02-08-2024 Basophils (Bld) [#/Vol] 0.0 10 3/uL 0.0-0.1 [facility] Basophils/100 WBC Auto (Bld) on 02-08-2024 Basophils/100 WBC (Bld) 0.1 % Low 0.2-2.0 [facility] Eosinophils/100 WBC Auto (Bl d)on 02-08-2024 Eosinophils/100 WBC (Bld) 0.2 % Low 0.9-7.0 [facility] Erythrocyte distribution wid th Auto (RBC) [Ratio]on 02-08-2024 Erythrocyte distribution width (RBC) [Ratio] 13.9 % 11.0-15.0 [facility] Estimated glomerular filtrat ion rate (GFR) non- Americanon 02-08-2024 GFR/1.73 sq M.predicted among non-blacks MDRD (S/P/Bld) [Vol rate/Area] mL/min/{1.73_m2} >=60 [facility] Globulin Calc (S) [Mass/Vol] on 02-08-2024 Globulin (S) [Mass/Vol] 3.0 g/dL [facility] Hematocrit Auto (Bld) [Volum e fraction]on 02-08-2024 Hematocrit (Bld) [Volume fraction] 40.7 % 36.0-48.0 [facility] Hemoglobin [Mass/volume] in Bloodon 02-08-2024 Hemoglobin (Bld) [Mass/Vol] 13.6 g/dL 12.0-16.0 [facility] Laboratory - Chemistry and C hemistry - challengeon 02-08-2024 Albumin [Mass/Vol] 2.8 g/dL Low 3.4-5.0 [facility] ALP [Catalytic activity/Vol] 85 U/L 46-116 [facility] ALT [Catalytic activity/Vol] 32 U/L 14-59 [facility] AST [Catalytic activity/Vol] 20 U/L 15-37 [facility] Bilirubin [Mass/Vol] 0.7 mg/dL 0.2-1.0 [facility] Calcium [Mass/Vol] 9.0 mg/dL 8.5-10.1 [facility] Chloride [Moles/Vol] 103 mmol/L 98-107 [facility] CO2 [Moles/Vol] 27.1 mmol/L 21.0-32.0 [facility] Creatinine [Mass/Vol] 0.82 mg/dL 0.55-1.02 [facility] GFR/1.73 sq M.predicted MDRD (S/P/Bld) [Vol rate/Area] mL/min/{1.73_m2} >=60 [facility] Glucose [Mass/Vol] 122 mg/dL High 74-106 [facility] Potassium [Moles/Vol] 4.6 mmol/L 3.5-5.1 [facility] Protein [Mass/Vol] 5.8 g/dL Low 6.4-8.2 [facility] Sodium [Moles/Vol] 135 mmol/L Low 136-145 [facility] Urea nitrogen [Mass/Vol] 30.0 mg/dL High 7.0-18.0 [facility] Urea nitrogen/Creatinine [Mass ratio] 36.6 mg/mg [facility] Laboratory - Hematology and Cell countson 02-08-2024 Immature granulocytes/100 WBC (Bld) 1.6 % High 0.0-0.5 [facility] Leukocytes [#/volume] correc anne marie for nucleated erythrocytes in Blood by Automated counon 02-08-2024 WBC corrected for nucl RBC Auto (Bld) [#/Vol] 12.9 10 3/uL High 4.0-11.0 [facility] Lymphocytes Auto (Bld) [#/Vo l]on 02-08-2024 Lymphocytes (Bld) [#/Vol] 0.9 10 3/uL Low 1.2-3.8 [facility] Lymphocytes/100 WBC Auto (Bl d)on 02-08-2024 Lymphocytes/100 WBC (Bld) 6.7 % Low 20.5-60.0 [facility] MCH Auto (RBC) [Entitic mass ]on 02-08-2024 MCH (RBC) [Entitic mass] 31.1 pg 26.7-34.0 [facility] MCHC Auto (RBC) [Mass/Vol]on 02-08-2024 MCHC (RBC) [Mass/Vol] 33.4 g/dL 29.9-35.2 [facility] MCV Auto (RBC) [Entitic vol] on 02-08-2024 MCV (RBC) [Entitic vol] 93.1 fL 81.0-99.0 [facility] Monocytes Auto (Bld) [#/Vol] on 02-08-2024 Monocytes (Bld) [#/Vol] 0.6 10 3/uL 0.3-0.8 [facility] Monocytes/100 WBC Auto (Bld) on 02-08-2024 Monocytes/100 WBC (Bld) 4.6 % 1.7-12.0 [facility] Neutrophils Auto (Bld) [#/Vo l]on 02-08-2024 Neutrophils (Bld) [#/Vol] 11.2 10 3/uL High 1.4-6.5 [facility] Neutrophils/100 WBC Auto (Bl d)on 02-08-2024 Neutrophils/100 WBC (Bld) 86.8 % High 43.0-75.0 [facility] No Panel Informationon 02-07 Eosinophils # (Auto) 0.0 10 3/uL 0.0-0.7 [facility] Immature Granulocyte # (Auto) 0.21 10 3/uL High 0.00-0.03 [facility] Platelet mean volume Auto (B ld) [Entitic vol]on 02-08-2024 Platelet mean volume (Bld) [Entitic vol] 10.4 fL 9.5-13.5 [facility] Platelets Auto (Bld) [#/Vol] on 02-08-2024 Platelets (Bld) [#/Vol] 204 10 3/uL 150-450 [facility] RBC Auto (Bld) [#/Vol]on RBC (Bld) [#/Vol] 4.37 10 6/uL 4.20-5.40 [facility] Serum or plasma albumin/glob ulin mass ratioon 02-08-2024 Albumin/Globulin [Mass ratio] 0.9 {ratio} [facility] Serum or plasma anion gap de terminationon 02-08-2024 Anion gap [Moles/Vol] 9.5 mmol/L [facility] Basophils Auto (Bld) [#/Vol] on 02-07-2024 Basophils (Bld) [#/Vol] 0.0 10 3/uL 0.0-0.1 [facility] Basophils/100 WBC Auto (Bld) on 02-07-2024 Basophils/100 WBC (Bld) 0.1 % Low 0.2-2.0 [facility] Eosinophils/100 WBC Auto (Bl d)on 02-07-2024 Eosinophils/100 WBC (Bld) 0.2 % Low 0.9-7.0 [facility] Erythrocyte distribution wid th Auto (RBC) [Ratio]on 02-07-2024 Erythrocyte distribution width (RBC) [Ratio] 14.1 % 11.0-15.0 [facility] Estimated glomerular filtrat ion rate (GFR) non- Americanon 02-07-2024 GFR/1.73 sq M.predicted among non-blacks MDRD (S/P/Bld) [Vol rate/Area] 51 mL/min/{1.73_m2} Low >=60 [facility] Globulin Calc (S) [Mass/Vol] on 02-07-2024 Globulin (S) [Mass/Vol] 3.2 g/dL [facility] Hematocrit Auto (Bld) [Volum e fraction]on 02-07-2024 Hematocrit (Bld) [Volume fraction] 46.3 % 36.0-48.0 [facility] Hemoglobin [Mass/volume] in Bloodon 02-07-2024 Hemoglobin (Bld) [Mass/Vol] 15.3 g/dL 12.0-16.0 [facility] Laboratory - Chemistry and C hemistry - challengeon 02-07-2024 Bilirubin Ql (U) Negative NEGATIVE [facility] Glucose (U) [Mass/Vol] Negative NEGATIVE [facility] Ketones Ql (U) Negative NEGATIVE [facility] pH (U) 6.0 [pH] 5.0-9.0 [facility] Specific gravity (U) [Rel density] >=1.030 Abnormal 1.005-1.02 5 [facility] Urobilinogen Qn (U) 1.0 {Sherrell'U}/dL 0.2-1.0 [facility] Albumin [Mass/Vol] 3.1 g/dL Low 3.4-5.0 [facility] ALP [Catalytic activity/Vol] 107 U/L 46-116 [facility] ALT [Catalytic activity/Vol] 38 U/L 14-59 [facility] AST [Catalytic activity/Vol] 19 U/L 15-37 [facility] Bilirubin [Mass/Vol] 0.7 mg/dL 0.2-1.0 [facility] Bilirubin.direct [Mass/Vol] 0.2 mg/dL 0.0-0.2 [facility] Lipase [Catalytic activity/Vol] 66.0 U/L 16.0-77.0 [facility] Natriuretic peptide B (Bld) [Mass/Vol] 1679.0 pg/mL <=1800.0 [facility] Protein [Mass/Vol] 6.3 g/dL Low 6.4-8.2 [facility] Calcium [Mass/Vol] 9.3 mg/dL 8.5-10.1 [facility] Chloride [Moles/Vol] 104 mmol/L 98-107 [facility] CO2 [Moles/Vol] 25.4 mmol/L 21.0-32.0 [facility] Creatinine [Mass/Vol] 1.03 mg/dL High 0.55-1.02 [facility] GFR/1.73 sq M.predicted MDRD (S/P/Bld) [Vol rate/Area] mL/min/{1.73_m2} >=60 [facility] Glucose [Mass/Vol] 137 mg/dL High 74-106 [facility] Potassium [Moles/Vol] 4.6 mmol/L 3.5-5.1 [facility] Sodium [Moles/Vol] 137 mmol/L 136-145 [facility] Urea nitrogen [Mass/Vol] 35.0 mg/dL High 7.0-18.0 [facility] Urea nitrogen/Creatinine [Mass ratio] 34.0 mg/mg [facility] Laboratory - Hematology and Cell countson 02-07-2024 Immature granulocytes/100 WBC (Bld) 1.6 % High 0.0-0.5 [facility] Laboratory - Specimen inform ationon 02-07-2024 Appearance (U) CLEAR CLEAR [facility] Color (U) YELLOW YELLOW [facility] Laboratory - Urinalysison Leukocyte esterase Test strip Ql (U) Negative NEGATIVE [facility] Nitrite Ql (U) Negative NEGATIVE [facility] Protein Ql (U) TRACE mg/dL NEG/TRACE [facility] Leukocytes [#/volume] correc anne marie for nucleated erythrocytes in Blood by Automated counon 02-07-2024 WBC corrected for nucl RBC Auto (Bld) [#/Vol] 18.4 10 3/uL High 4.0-11.0 [facility] Lymphocytes Auto (Bld) [#/Vo l]on 02-07-2024 Lymphocytes (Bld) [#/Vol] 1.0 10 3/uL Low 1.2-3.8 [facility] Lymphocytes/100 WBC Auto (Bl d)on 02-07-2024 Lymphocytes/100 WBC (Bld) 5.4 % Low 20.5-60.0 [facility] MCH Auto (RBC) [Entitic mass ]on 02-07-2024 MCH (RBC) [Entitic mass] 31.0 pg 26.7-34.0 [facility] MCHC Auto (RBC) [Mass/Vol]on 02-07-2024 MCHC (RBC) [Mass/Vol] 33.0 g/dL 29.9-35.2 [facility] MCV Auto (RBC) [Entitic vol] on 02-07-2024 MCV (RBC) [Entitic vol] 93.7 fL 81.0-99.0 [facility] Monocytes Auto (Bld) [#/Vol] on 02-07-2024 Monocytes (Bld) [#/Vol] 1.0 10 3/uL High 0.3-0.8 [facility] Monocytes/100 WBC Auto (Bld) on 02-07-2024 Monocytes/100 WBC (Bld) 5.4 % 1.7-12.0 [facility] Neutrophils Auto (Bld) [#/Vo l]on 02-07-2024 Neutrophils (Bld) [#/Vol] 16.1 10 3/uL High 1.4-6.5 [facility] Neutrophils/100 WBC Auto (Bl d)on 02-07-2024 Neutrophils/100 WBC (Bld) 87.3 % High 43.0-75.0 [facility] No Panel Informationon 02-06 Urine Microscopic Review NO [facility] Urine Occult Blood Negative NEGATIVE [facility] Troponin I High Sensitivity 50.2 pg/mL 4.0-51.3 [facility] Comment on above: CUT-OFF POINTS HAVE [...] Eosinophils # (Auto) 0.0 10 3/uL 0.0-0.7 [facility] Immature Granulocyte # (Auto) 0.29 10 3/uL High 0.00-0.03 [facility] Platelet mean volume Auto (B ld) [Entitic vol]on 02-07-2024 Platelet mean volume (Bld) [Entitic vol] 10.1 fL 9.5-13.5 [facility] Platelets Auto (Bld) [#/Vol] on 02-07-2024 Platelets (Bld) [#/Vol] 260 10 3/uL 150-450 [facility] RBC Auto (Bld) [#/Vol]on RBC (Bld) [#/Vol] 4.94 10 6/uL 4.20-5.40 [facility] Serum or plasma albumin/glob ulin mass ratioon 02-07-2024 Albumin/Globulin [Mass ratio] 1.0 {ratio} [facility] Serum or plasma anion gap de terminationon 02-07-2024 Anion gap [Moles/Vol] 12.2 mmol/L [facility] ECG 12 Leadon 01-22-2024 Normal sinus rhythm with normal QTc interval [facility] Work Phone: Magnesium [Mass/volume] in S vaughn or PlasmaOrdered By: Izzy Capps on 01-19-2024 Magnesium [Mass/Vol] 1.9 mg/dL 1.9-2.7 [facility] Activated partial thrombopla stin time (aPTT) in platelet poor plasma by coagulation aOrdered By: Vic Mendez on 01-18-2024 aPTT Coag (PPP) [Time] 31.3 s 25.1-36.5 [facility] Comment on above: A hematocrit value g reater than 55% may lead to inaccurate results in coagulation testing. Patients having hematocrit values >55% require a special collection tube for coagulation studies. Please contact the laboratory at [phone] for redraw instructions. Alanine aminotransferase [En zymatic activity/volume] in Serum or PlasmaOrdered By: Vic Mendez on 01-18-2024 ALT [Catalytic activity/Vol] 29 U/L 7-52 [facility] Albumin [Mass/volume] in Ser um or Plasma by Bromocresol green (BCG) dye binding methoOrdered By: Vic Mendez on 01-18-2024 Albumin BCG dye [Mass/Vol] 3.7 g/dL 3.5-5.7 [facility] Alkaline phosphatase [Enzyma tic activity/volume] in Serum or PlasmaOrdered By: Vic Mendez on 01-18-2024 ALP [Catalytic activity/Vol] 63 U/L 34-104 [facility] Aspartate aminotransferase [ Enzymatic activity/volume] in Serum or PlasmaOrdered By: Vic Mendez on 01-18-2024 AST [Catalytic activity/Vol] 17 U/L 13-39 [facility] Basophils Auto (Bld) [#/Vol] Ordered By: Vic Mendez on 01-18-2024 Basophils (Bld) [#/Vol] 0.1 10*3/uL 0.0-0.2 [facility] Basophils/100 WBC Auto (Bld) Ordered By: Vic Mendez on 01-18-2024 Basophils/100 WBC (Bld) 0.5 % . [facility] Bilirubin.total [Mass/volume ] in Serum or PlasmaOrdered By: Vic Mendez on 01-18-2024 Bilirubin [Mass/Vol] 0.9 mg/dL 0.3-1.0 [facility] Calcium [Mass/volume] in Ser um or PlasmaOrdered By: Vic Mendez on 01-18-2024 Calcium [Mass/Vol] 9.2 mg/dL 8.6-10.3 [facility] Carbon dioxide, total [Moles /volume] in Serum or PlasmaOrdered By: Vic Mendez on 01-18-2024 CO2 [Moles/Vol] 23.4 mmol/L 21.0-31.0 [facility] Chloride [Moles/volume] in S vaughn or PlasmaOrdered By: Vic Mendez on 01-18-2024 Chloride [Moles/Vol] 108 mmol/L High 98-107 [facility] Creatine kinase [Enzymatic a ctivity/volume] in Serum or PlasmaOrdered By: Vic Mendez 01-18-2024 CK [Catalytic activity/Vol] 31 U/L 30-223 [facility] Creatinine [Mass/volume] in Serum or PlasmaOrdered By: Vic Mendez on 01-18-2024 Creatinine [Mass/Vol] 0.96 mg/dL 0.60-1.20 [facility] Eosinophils Auto (Bld) [#/Vo l]Ordered By: Vic Mendez on 01-18-2024 Eosinophils (Bld) [#/Vol] 0.1 10*3/uL 0.0-0.45 [facility] Eosinophils/100 WBC Auto (Bl d)Ordered By: Vic Mendez on 01-18-2024 Eosinophils/100 WBC (Bld) 1.2 % . [facility] Erythrocyte distribution wid th Auto (RBC) [Ratio]Ordered By: Vic Mendez on 01-18-2024 Erythrocyte distribution width (RBC) [Ratio] 14.1 % 11.9-15.3 [facility] Globulin Calc (S) [Mass/Vol] Ordered By: Vic Mendez on 01-18-2024 Globulin (S) [Mass/Vol] 2.3 g/dL [facility] Glucose [Mass/volume] in Ser um or PlasmaOrdered By: Vic Mendez on 01-18-2024 Glucose [Mass/Vol] 102 mg/dL High 70-100 [facility] Comment on above: ADA recommended refe rence rangeRandom Glucose Reference Range is dependent on time and content of last meal. Glucose of more than 200 mg/dL in a nonstressed, ambulatory subject supports the diagnosis of Diabetes Mellitus. Hematocrit Auto (Bld) [Volum e fraction]Ordered By: Vic Mendez on 01-18-2024 Hematocrit (Bld) [Volume fraction] 45.9 % 34.0-46.4 [facility] Hemoglobin [Mass/volume] in BloodOrdered By: Vic Mendez on 01-18-2024 Hemoglobin (Bld) [Mass/Vol] 15.5 g/dL High 11.8-15.4 [facility] INR in Platelet poor plasma by Coagulation assayOrdered By: Vic Mendez on 01-18-2024 INR Coag (PPP) [Relative time] 1.5 {INR} [facility] Comment on above: INR Therapeutic Rang [...] with mechanical heart valves: 3 - 4.5 Leukocytes [#/volume] correc anne marie for nucleated erythrocytes in Blood by Automated counOrdered By: Vic Mendez on 01-18-2024 WBC corrected for nucl RBC Auto (Bld) [#/Vol] 10.4 10*3/uL 3.8-11.6 [facility] Lymphocytes Auto (Bld) [#/Vo l]Ordered By: Vic Mendez on 01-18-2024 Lymphocytes (Bld) [#/Vol] 1.0 10*3/uL 1.00-4.8 [facility] Lymphocytes/100 WBC Auto (Bl d)Ordered By: Vic Mendez on 01-18-2024 Lymphocytes/100 WBC (Bld) 9.2 % . [facility] MCH Auto (RBC) [Entitic mass ]Ordered By: Vic Mendez on 01-18-2024 MCH (RBC) [Entitic mass] 31.2 pg 24.7-34.3 [facility] MCHC Auto (RBC) [Mass/Vol]Or dered By: Vic Mendez on 01-18-2024 MCHC (RBC) [Mass/Vol] 33.7 g/dL 32.0-35.0 [facility] MCV Auto (RBC) [Entitic vol] Ordered By: Vic Mendez on 01-18-2024 MCV (RBC) [Entitic vol] 92.6 fL 80-100 [facility] Magnesium [Mass/volume] in S vaughn or PlasmaOrdered By: Vic Mendez on 01-18-2024 Magnesium [Mass/Vol] 1.9 mg/dL 1.9-2.7 [facility] Monocyte distribution width [Entitic volume] in Blood by AutomatedOrdered By: Vic Mendez on 01-18-2024 Monocyte distribution width Auto (Bld) [Entitic vol] 18.06 % 0.00-20.00 [facility] Monocytes Auto (Bld) [#/Vol] Ordered By: Vic Mendez on 01-18-2024 Monocytes (Bld) [#/Vol] 0.8 10*3/uL 0.0-0.8 [facility] Monocytes/100 WBC Auto (Bld) Ordered By: Vic Mendez on 01-18-2024 Monocytes/100 WBC (Bld) 7.6 % . [facility] Neutrophils Auto (Bld) [#/Vo l]Ordered By: Vic Mendez on 01-18-2024 Neutrophils (Bld) [#/Vol] 8.5 10*3/uL High 1.8-7.7 [facility] Neutrophils/100 WBC Auto (Bl d)Ordered By: Vic Mendez on 01-18-2024 Neutrophils/100 WBC (Bld) 81.5 % . [facility] No Panel InformationOrdered By: Vic Mendez on 01-18-2024 Estimated GFR (CKD-EPI) 59.440 mL/Min [facility] Creatinine Clearance (Chem 40.09 [facility] Nucleated erythrocytes [Pres ence] in Blood by Automated countOrdered By: Vic Mendez on 01-18-2024 Nucleated RBC Auto Ql (Bld) 0.1 /100{WBC} 0-0.5 [facility] Platelet mean volume Auto (B ld) [Entitic vol]Ordered By: Vic Mendez on 01-18-2024 Platelet mean volume (Bld) [Entitic vol] 8.5 fL 6.3-10.7 [facility] Platelets Auto (Bld) [#/Vol] Ordered By: Vic Mendez on 01-18-2024 Platelets (Bld) [#/Vol] 205 10*3/uL 150-450 [facility] Potassium [Moles/volume] in Serum or PlasmaOrdered By: Vic Mendez on 01-18-2024 Potassium [Moles/Vol] 4.1 mmol/L 3.5-5.1 [facility] Protein [Mass/volume] in Ser um or PlasmaOrdered By: Vic Mendez on 01-18-2024 Protein [Mass/Vol] 6.0 g/dL Low 6.4-8.9 [facility] Prothrombin time (PT)Ordered By: Vic Mendez on 01-18-2024 PT Coag (PPP) [Time] 16.8 s High 9.0-12.9 [facility] Comment on above: A hematocrit value g reater than 55% may lead to inaccurate results in coagulation testing. Patients having hematocrit values >55% require a special collection tube for coagulation studies. Please contact the laboratory at [phone] for redraw instructions. RBC Auto (Bld) [#/Vol]Ordere d By: Vic Mendez on 01-18-2024 RBC (Bld) [#/Vol] 4.96 10*6/uL 3.60-5.00 [facility] Serum or plasma albumin/glob ulin mass ratioOrdered By: Vic Mendez on 01-18-2024 Albumin/Globulin [Mass ratio] 1.6 {ratio} [facility] Serum or plasma anion gap de terminationOrdered By: Vic Mendez on 01-18-2024 Anion gap [Moles/Vol] 11.7 mmol/L 6.0-15.0 [facility] Sodium [Moles/volume] in Ser um or PlasmaOrdered By: Vic Mendez on 01-18-2024 Sodium [Moles/Vol] 139 mmol/L 136-145 [facility] Thyrotropin [Units/volume] i n Serum or PlasmaOrdered By: Izzy Capps on 01-18-2024 TSH Qn 0.83 m[IU]/L 0.45-5.33 [facility] Troponin I.cardiac [Mass/vol ume] in Serum or Plasma by Detection limit <= 0.01 ng/Ordered By: Vic Mendez on 01-18-2024 Troponin I.cardiac DL <= 0.01 ng/mL [Mass/Vol] 14.7 pg/mL 0.0-15.0 [facility] [facility] Urea nitrogen [Mass/volume] in Serum or PlasmaOrdered By: Vic Mendez on 01-18-2024 Urea nitrogen [Mass/Vol] 29 mg/dL High 7-25 [facility] WBC Auto (Bld) [#/Vol]Ordere d By: Vic Mendez on 01-18-2024 WBC (Bld) [#/Vol] 10.4 10*3/uL 3.8-11.6 [facility] ECG 12 [place] 09-19-2023 Rhythm appeared to b e atrial flutter with 2/ [address] block with nonspecific ST-[facility]: US Heart Transthoracicon Aortic Valve Area by Continuity of Peak Velocity 2.36 [facility] Work Phone: Aortic Valve Area by Continuity of VTI 2.33 [facility] Work Phone: AV mn grad 2.0 [facility] Work Phone: [phone] AV pk grad 3.5 [facility] Work Phone: [phone] AV pk douglas 0.94 [facility] Work Phone: [phone] LV A4C EF 63.6 [facility] Work Phone: [phone] LVIDd 3.20 [facility] Work Phone: [phone] LVOT diam 1.90 [facility] Work Phone: [phone] MV avg E/e' ratio 20.20 [facility] Work Phone: [phone] RVSP 32.8 [facility] Work Phone: [address], [place] [address] TRANSTHORACIC ECHOCARDIOGRAM REPORT Patient Name: AUSTIN Arriaga Physician: [id number] Mac MD Study Date: 08/21/2023 Ordering Provider: Zurdo MAC MRN/PID: [id number] Fellow: Nurse: Date of /Age: 1 1940 / 82 years [employer]: Iqra Pham RDCS, RVT Gender: F Additional Staff: Height: 149.86 cm Admit Date: Weight: 74.84 kg Admission Status: BSA: 1.70 m2 Department Location: [facility] Blood Pressure: 116 /64 mmHg Study Type: TRANSTHORACIC ECHO (TTE) COMPLETE Diagnosis/ICD: Chronic diastolic (congestive) heart failure (CHF)-I50.32; Essential (primary) hypertension-I10; Dyspnea, unspecified-R06.00 Indication: Atrial Fibrillation, Sick Sinus Syndrome, Hyerlipidemia, Pacemaker, Overweight, CKD-Stage III CPT Codes: Echo Complete w Full Doppler-[id number] Study Detail: The following Echo studies were [...] not included)... Debbie Dominique MD - 08/22/[address], [address] [address] TRANSTHORACIC ECHOCARDIOGRAM REPORT Patient Name: AUSTIN Arriaga Physician: Zurdo Mac MD Study Date: 08/21/2023 Ordering Provider: Zurdo MAC MRN/PID: [id number] Fellow: Nurse: Date of /Age: 1 1940 / 82 years [employer]: Iqra Pham RDCS, RVT Gender: F Additional Staff: Height: 149.86 cm Admit Date: Weight: 74.84 kg Admission Status: BSA: 1.70 m2 Department Location: [facility] Blood Pressure: 116 /64 mmHg Study Type: TRANSTHORACIC ECHO (TTE) COMPLETE Diagnosis/ICD: Chronic diastolic (congestive) heart failure (CHF)-I50.32; Essential (primary) hypertension-I10; Dyspnea, unspecified-R06.00 Indication: Atrial Fibrillation, Sick Sinus Syndrome, Hyerlipidemia, Pacemaker, Overweight, CKD-Stage III CPT Codes: Echo Complete w Full Doppler-[id number] Study Detail: The following Echo studies were [...] 0.7 m/s (0.6-0.9m/s) PV Max P.8 mmHg [id number] Debbie Mac MD Electronically signed on 08/22/2023 at 12:31:20 PM Final [facility] Work Phone: [facility] Work Phone: ECG 12 Leadon 05-31-2023 Paced atrial rhythm with normal QTc interval [facility] Work Phone: Alkaline phosphatase [Enzyma tic activity/volume] in Serum or PlasmaOrdered By: Wilbur Watson on 03-05-2023 ALP [Catalytic activity/Vol] 82 U/L 34-104 [facility] Amylase [Enzymatic activity/ volume] in Serum or PlasmaOrdered By: Wilbur Watson on 03-05-2023 Amylase [Catalytic activity/Vol] 32 U/L 29-103 [facility] Aspartate aminotransferase [ Enzymatic activity/volume] in Serum or PlasmaOrdered By: Wilbur Watson on 03-05-2023 AST [Catalytic activity/Vol] 19 U/L 13-39 [facility] Bilirubin.direct [Mass/volum e] in Serum or PlasmaOrdered By: Wilbur Watson on 03-05-2023 Bilirubin.direct [Mass/Vol] 0.20 mg/dL 0.03-0.18 [facility] Bilirubin.total [Mass/volume ] in Serum or PlasmaOrdered By: Wilbur Watson on 03-05-2023 Bilirubin [Mass/Vol] 0.7 mg/dL 0.3-1.0 [facility] Lipase [Enzymatic activity/v olume] in Serum or PlasmaOrdered By: Wilbur Watson on 03-05-2023 Lipase [Catalytic activity/Vol] 31.0 U/L 11.0-82.0 [facility] Serum or plasma non-glucuron idated bilirubin measurement (mass/volume)Ordered By: Wilbur Watson on 03-05-2023 Bilirubin.indirect [Mass/Vol] 0.5 mg/dL [facility] Basophils Auto (Bld) [#/Vol] Ordered By: Wilbur Wtason on 02-26-2023 Basophils (Bld) [#/Vol] 0.0 10*3/uL 0.0-0.2 [facility] Basophils/100 WBC Auto (Bld) Ordered By: Wilbur Watosn on 02-26-2023 Basophils/100 WBC (Bld) 0.5 % . [facility] Calcium [Mass/volume] in Ser um or PlasmaOrdered By: Wilbur Watson on 02-26-2023 Calcium [Mass/Vol] 9.0 mg/dL 8.6-10.3 [facility] Carbon dioxide, total [Moles /volume] in Serum or PlasmaOrdered By: Wilbur Watson on 02-26-2023 CO2 [Moles/Vol] 24.7 mmol/L 21.0-31.0 [facility] Chloride [Moles/volume] in S vaughn or PlasmaOrdered By: Wilbur Watson on 02-26-2023 Chloride [Moles/Vol] 108 mmol/L 98-107 [facility] Creatinine [Mass/volume] in Serum or PlasmaOrdered By: Wilbur Watson on 02-26-2023 Creatinine [Mass/Vol] 1.03 mg/dL 0.60-1.20 [facility] Eosinophils Auto (Bld) [#/Vo l]Ordered By: Wilbur Watson on 02-26-2023 Eosinophils (Bld) [#/Vol] 0.2 10*3/uL 0.0-0.45 [facility] Eosinophils/100 WBC Auto (Bl d)Ordered By: Wilbur Watson on 02-26-2023 Eosinophils/100 WBC (Bld) 2.2 % . [facility] Erythrocyte distribution wid th Auto (RBC) [Ratio]Ordered By: Wilbur Watson on 02-26-2023 Erythrocyte distribution width (RBC) [Ratio] 13.8 % 11.9-15.3 [facility] Glucose [Mass/volume] in Ser um or PlasmaOrdered By: Wilbur Watson on 02-26-2023 Glucose [Mass/Vol] 81 mg/dL 70-100 [facility] Comment on above: ADA recommended refe rence rangeRandom Glucose Reference Range is dependent on time and content of last meal. Glucose of more than 200 mg/dL in a nonstressed, ambulatory subject supports the diagnosis of Diabetes Mellitus. Hematocrit Auto (Bld) [Volum e fraction]Ordered By: Wilbur Watson on 02-26-2023 Hematocrit (Bld) [Volume fraction] 44.1 % 34.0-46.4 [facility] Hemoglobin [Mass/volume] in BloodOrdered By: Wilbur Watson on 02-26-2023 Hemoglobin (Bld) [Mass/Vol] 14.9 g/dL 11.8-15.4 [facility] Leukocytes [#/volume] correc anne marie for nucleated erythrocytes in Blood by Automated counOrdered By: Wilbur Watson on 02-26-2023 WBC corrected for nucl RBC Auto (Bld) [#/Vol] 8.3 10*3/uL 3.8-11.6 [facility] Lymphocytes Auto (Bld) [#/Vo l]Ordered By: Wilbur Watson on 02-26-2023 Lymphocytes (Bld) [#/Vol] 0.9 10*3/uL 1.00-4.8 [facility] Lymphocytes/100 WBC Auto (Bl d)Ordered By: Wilbur Watson on 02-26-2023 Lymphocytes/100 WBC (Bld) 10.3 % . [facility] MCH Auto (RBC) [Entitic mass ]Ordered By: Wilbur Watson on 02-26-2023 MCH (RBC) [Entitic mass] 30.5 pg 24.7-34.3 [facility] MCHC Auto (RBC) [Mass/Vol]Or dered By: Wilbur Watson on 02-26-2023 MCHC (RBC) [Mass/Vol] 33.8 g/dL 32.0-35.0 [facility] MCV Auto (RBC) [Entitic vol] Ordered By: Wilbur Watson on 02-26-2023 MCV (RBC) [Entitic vol] 90.4 fL 80-100 [facility] Monocytes Auto (Bld) [#/Vol] Ordered By: Wilbur Watson on 02-26-2023 Monocytes (Bld) [#/Vol] 0.6 10*3/uL 0.0-0.8 [facility] Monocytes/100 WBC Auto (Bld) Ordered By: Wilbur Watson on 02-26-2023 Monocytes/100 WBC (Bld) 7.1 % . [facility] Neutrophils Auto (Bld) [#/Vo l]Ordered By: Wilbur Watson on 02-26-2023 Neutrophils (Bld) [#/Vol] 6.6 10*3/uL 1.8-7.7 [facility] Neutrophils/100 WBC Auto (Bl d)Ordered By: Wilbur Watson on 02-26-2023 Neutrophils/100 WBC (Bld) 79.9 % . [facility] No Panel InformationOrdered By: Wilbur Watson on 02-26-2023 Estimated GFR (CKD-EPI) 54.967 mL/Min [facility] Creatinine Clearance (Chem N/A [facility] Nucleated erythrocytes [Pres ence] in Blood by Automated countOrdered By: Wilbur Watson on 02-26-2023 Nucleated RBC Auto Ql (Bld) 0.0 /100{WBC} 0-0.5 [facility] Platelet mean volume Auto (B ld) [Entitic vol]Ordered By: Wilbur Watson on 02-26-2023 Platelet mean volume (Bld) [Entitic vol] 8.9 fL 6.3-10.7 [facility] Platelets Auto (Bld) [#/Vol] Ordered By: Wilbur Watson on 02-26-2023 Platelets (Bld) [#/Vol] 194 10*3/uL 150-450 [facility] Potassium [Moles/volume] in Serum or PlasmaOrdered By: Wilbur Watson on 02-26-2023 Potassium [Moles/Vol] 4.3 mmol/L 3.5-5.1 [facility] RBC Auto (Bld) [#/Vol]Ordere d By: Wilbur Watson on 02-26-2023 RBC (Bld) [#/Vol] 4.88 10*6/uL 3.60-5.00 [facility] Serum or plasma anion gap de terminationOrdered By: Wilbur Watson on 02-26-2023 Anion gap [Moles/Vol] 12.6 mmol/L 6.0-15.0 [facility] Sodium [Moles/volume] in Ser um or PlasmaOrdered By: Wilbur Watson on 02-26-2023 Sodium [Moles/Vol] 141 mmol/L 136-145 [facility] Urea nitrogen [Mass/volume] in Serum or PlasmaOrdered By: Wilbur Watson on 02-26-2023 Urea nitrogen [Mass/Vol] 32 mg/dL 7-25 [facility] WBC Auto (Bld) [#/Vol]Ordere d By: Wilbur Watson on 02-26-2023 WBC (Bld) [#/Vol] 8.3 10*3/uL 3.8-11.6 [facility] Falls Screening (Age 18+)on 01-25-2023 Fall risk assessment a) No falls within the last year [employer] Work Phone: Tobacco use status CPHS b) No [facility] Work Phone: Office Visit (Cardiology)on [...] result(s) with the patient: ECG Chief Complaint AUSTIN GOLDEN is being seen for cath follow [...] TABLET B (more content not included)... Normal [facility] Activated partial thrombopla stin time (aPTT) in platelet poor plasma by coagulation aOrdered By: Debbie Mac on 01-09-2023 aPTT Coag (PPP) [Time] 19.5 s 25.1-36.5 [facility] Basophils Auto (Bld) [#/Vol] Ordered By: Debbie Mac on 01-09-2023 Basophils (Bld) [#/Vol] 0.0 10*3/uL 0.0-0.2 [facility] Basophils/100 WBC Auto (Bld) Ordered By: Debbie Mac on 01-09-2023 Basophils/100 WBC (Bld) 0.6 % . [facility] Carbon dioxide, total [Moles /volume] in Serum or PlasmaOrdered By: Debbie Mac on 01-09-2023 CO2 [Moles/Vol] 25.6 mmol/L 21.0-31.0 [facility] Chloride [Moles/volume] in S vaughn or PlasmaOrdered By: Debbie Mac on 01-09-2023 Chloride [Moles/Vol] 106 mmol/L 98-107 [facility] Cholesterol [Mass/volume] in Serum or PlasmaOrdered By: Debbie Mac on 01-09-2023 Cholesterol [Mass/Vol] 135 mg/dL 140-200 [facility] Comment on above: Chol less than 200 m g/dl low riskChol 201-239 mg/dl borderline riskChol 240 mg/dl and greater high risk Cholesterol in LDL Calc [Mas s/Vol]Ordered By: Debbie Mac on 01-09-2023 Cholesterol in LDL [Mass/Vol] 45 mg/dL 0-100 [facility] Comment on above: LDL ATP III CLASSIFI CATIONLDL less than 100 mg/dL OptimalLDL 100-129 mg/dL Near or above optimalLDL 130-159 mg/dL Borderline highLDL 160-189 mg/dL HighLDL greater than 189 mg/dL Very high Cholesterol in VLDL Calc [Ma ss/Vol]Ordered By: Debbie Mac on 01-09-2023 Cholesterol in VLDL [Mass/Vol] 13 mg/dL [facility] Creatinine [Mass/volume] in Serum or PlasmaOrdered By: Debbie Mac on 01-09-2023 Creatinine [Mass/Vol] 0.98 mg/dL 0.60-1.20 [facility] Eosinophils Auto (Bld) [#/Vo l]Ordered By: Debbie Mac on 01-09-2023 Eosinophils (Bld) [#/Vol] 0.2 10*3/uL 0.0-0.45 [facility] Eosinophils/100 WBC Auto (Bl d)Ordered By: Debbie Mac on 01-09-2023 Eosinophils/100 WBC (Bld) 2.9 % . [facility] Erythrocyte distribution wid th Auto (RBC) [Ratio]Ordered By: Debbie Mac on 01-09-2023 Erythrocyte distribution width (RBC) [Ratio] 14.5 % 11.9-15.3 [facility] Hematocrit Auto (Bld) [Volum e fraction]Ordered By: Debbie Mac on 01-09-2023 Hematocrit (Bld) [Volume fraction] 43.9 % 34.0-46.4 [facility] Hemoglobin [Mass/volume] in BloodOrdered By: Debbie Mac on 01-09-2023 Hemoglobin (Bld) [Mass/Vol] 14.7 g/dL 11.8-15.4 [facility] Laboratory - Chemistry and C hemistry - challengeon 01-09-2023 Cholesterol [Mass/Vol] 135\S\135 below low threshold 140-200 [facility] Work Phone: Comment on above: Chol less than 200 m g/dl low risk Chol 201-239 mg/dl borderline risk Chol 240 mg/dl and greater high risk Cholesterol in LDL [Mass/Vol] 45\S\45 Normal 0-100 [facility] Work Phone: Comment on above: LDL ATP III CLASSIFI CATION LDL less than 100 mg/dL Optimal LDL 100-129 mg/dL Near or above optimal LDL 130-159 mg/dL Borderline high LDL 160-189 mg/dL High LDL greater than 189 mg/dL Very high Laboratory - CoagulationOrde red By: Debbie Mac on 01-09-2023 PT Coag (PPP) [Time] 11.5 s 9.0-12.9 [facility] Leukocytes [#/volume] correc anne marie for nucleated erythrocytes in Blood by Automated counOrdered By: Debbie Mac on 01-09-2023 WBC corrected for nucl RBC Auto (Bld) [#/Vol] 7.1 10*3/uL 3.8-11.6 [facility] Lymphocytes Auto (Bld) [#/Vo l]Ordered By: Debbie Mac on 01-09-2023 Lymphocytes (Bld) [#/Vol] 1.0 10*3/uL 1.00-4.8 [facility] Lymphocytes/100 WBC Auto (Bl d)Ordered By: Debbie Mac on 01-09-2023 Lymphocytes/100 WBC (Bld) 14.7 % . [facility] MCH Auto (RBC) [Entitic mass ]Ordered By: Debbie Mac on 01-09-2023 MCH (RBC) [Entitic mass] 29.8 pg 24.7-34.3 [facility] MCHC Auto (RBC) [Mass/Vol]Or dered By: Debbie Mac on 01-09-2023 MCHC (RBC) [Mass/Vol] 33.5 g/dL 32.0-35.0 [facility] MCV Auto (RBC) [Entitic vol] Ordered By: Debbie Mac on 01-09-2023 MCV (RBC) [Entitic vol] 89.1 fL 80-100 [facility] Monocytes Auto (Bld) [#/Vol] Ordered By: Debbie Mac on 01-09-2023 Monocytes (Bld) [#/Vol] 0.5 10*3/uL 0.0-0.8 [facility] Monocytes/100 WBC Auto (Bld) Ordered By: Debbie Mac on 01-09-2023 Monocytes/100 WBC (Bld) 7.0 % . [facility] Neutrophils Auto (Bld) [#/Vo l]Ordered By: Debbie Mac on 01-09-2023 Neutrophils (Bld) [#/Vol] 5.3 10*3/uL 1.8-7.7 [facility] Neutrophils/100 WBC Auto (Bl d)Ordered By: Debbie Mac on 01-09-2023 Neutrophils/100 WBC (Bld) 74.8 % . [facility] No Panel Informationon 01-09 74.8\S\74.8 Normal . [facility] Work Phone: 8.8\S\8.8 Normal 6.3-10.7 [facility] Work Phone: [phone]\S\167 Normal 150-450 [facility] Work Phone: 14.5\S\14.5 Normal 11.9-15.3 [facility] Work Phone: [phone] 33.5\S\33.5 Normal 32.0-35.0 [facility] Work Phone: 29.8\S\29.8 Normal 24.7-34.3 [facility] Work Phone: [phone] 5.3\S\5.3 Normal 1.8-7.7 [facility] Work Phone: 0.1\S\0.1 Normal 0-0.5 [facility] Work Phone: 0.6\S\0.6 Normal . [facility] Work Phone: 2.9\S\2.9 Normal . [facility] Work Phone: 7.0\S\7.0 Normal . [facility] Work Phone: [phone] 14.7\S\14.7 Normal 11.8-15.4 [facility] Work Phone: 0.0\S\0.0 Normal 0.0-0.2 [facility] Work Phone: [phone] Comment on above: PERFORMED BY:[place] [address] [place] [place] [phone] MEDICAL DIRECTORVITOR ZARATE M.D. 0.2\S\0.2 Normal 0.0-0.45 [facility] Work Phone: 0.5\S\0.5 Normal 0.0-0.8 [facility] Work Phone: 1.0\S\1.0 Normal 1.00-4.8 [facility] Work Phone: 89.1\S\89.1 Normal 80-100 [facility] Work Phone: 43.9\S\43.9 Normal 34.0-46.4 [facility] Work Phone: 4.92\S\4.92 Normal 3.60-5.00 [facility] Work Phone: [phone] 7.1\S\7.1 Normal 3.8-11.6 [facility] Work Phone: [phone] 4.5\S\4.5 Normal 3.5-5.1 [facility] Work Phone: [phone] Comment on above: PERFORMED BY:[place] [address] [place] [place], [place] [phone] MEDICAL DIRECTORVITOR ZARATE M.D. 1.8\S\1.8 Normal <5.0 [facility] Work Phone: [phone] Comment on above: PERFORMED BY:[place] [address] [place] [place], [place] [phone] MEDICAL DIRECTORVITOR ZARATE M.D. 13\S\13 Normal [facility] Work Phone: [phone] 69\S\69 Normal 0-149 [facility] Work Phone: [phone] Comment on above: TRIG ATP III CLASSIF ICATION TRIG less than 150 mg/dL Normal TRIG 150-199 mg/dL Borderline high TRIG 200-500 mg/dL High TRIG greater than 500 mg/dL Very high Standard traceable to the Center for Disease Conrtrol and Prevention (CDC) test method. 76\S\76 Normal 35-85 [facility] Work Phone: [phone] Comment on above: HDL CHOL ATP-III CLA SSIFICATION Cardiovascular Risk HDL > or equal to 60 mg/dL LOW HDL < 40 mg/dL HIGH 19.5\S\19.5 below low threshold 25.1-36.5 [facility] Work Phone: [phone] Comment on above: PERFORMED BY:[place] [address] [place] [place], [place] [phone] MEDICAL FOX CHASE CANCER CENTERVITOR ZARATE M.D. 1.0\S\1.0 Normal [facility] Work Phone: [phone] Comment on above: INR Therapeutic Rang e [...] valves: 3 - 4.5 11.5\S\11.5 Normal 9.0-12.9 [facility] Work Phone: Test not performed\S \Test not performed Normal 6.0-15.0 [facility] Work Phone: [phone] 25.6\S\25.6 Normal 21.0-31.0 [facility] Work Phone: [phone] 106\S\106 Normal 98-107 [facility] Work Phone: [phone] Normal 3.5-5.1 [facility] Work Phone: Comment on above: Specimen hemolyzed, redraw requested 138\S\138 Normal 136-145 [facility] Work Phone: [phone] 22\S\22 Normal 7-25 [facility] Work Phone: [phone] 40.90\S\40.90 Normal [facility] Work Phone: Comment on above: PERFORMED BY:[facility] [place] [place], [place] [phone] MEDICAL DIRECTORVITOR ZARATE M.D. 58.349\S\58.349 Normal [facility] Work Phone: [phone] 0.98\S\0.98 Normal 0.60-1.20 [facility] Work Phone: No Panel InformationOrdered By: Debbie Mac on 01-09-2023 Estimated GFR (CKD-EPI) 58.349 mL/Min [facility] Creatinine Clearance (Chem 40.90 [facility] Nucleated erythrocytes [Pres ence] in Blood by Automated countOrdered By: Debbie Mac on 01-09-2023 Nucleated RBC Auto Ql (Bld) 0.1 /100{WBC} 0-0.5 [facility] Platelet mean volume Auto (B ld) [Entitic vol]Ordered By: Debbie Mac on 01-09-2023 Platelet mean volume (Bld) [Entitic vol] 8.8 fL 6.3-10.7 [facility] Platelet poor plasma interna tional normalized ratio (INR) by coagulation assay (relatOrdered By: Debbie Mac on 01-09-2023 INR Coag (PPP) [Relative time] 1.0 {INR} [facility] Comment on above: INR Therapeutic Rang [...] 01-09-2023 Platelets (Bld) [#/Vol] 167 10*3/uL 150-450 [facility] Potassium [Moles/volume] in Serum or PlasmaOrdered By: Debbie Mac on 01-09-2023 Potassium [Moles/Vol] 4.5 mmol/L 3.5-5.1 [facility] RBC Auto (Bld) [#/Vol]Ordere d By: Debbie Mac on 01-09-2023 RBC (Bld) [#/Vol] 4.92 10*6/uL 3.60-5.00 [facility] Serum or plasma anion gap de terminationOrdered By: Debbie Mac on 01-09-2023 Anion gap [Moles/Vol] TNP [facility] Comment on above: Test not performed Serum or plasma high density lipoprotein (HDL) cholesterol measurementOrdered By: Debbie Mac on 01-09-2023 Cholesterol in HDL [Mass/Vol] 76 mg/dL 35-85 [facility] Comment on above: HDL CHOL ATP-III CLA SSIFICATION Cardiovascular RiskHDL > or equal to 60 mg/dL LOWHDL < 40 mg/dL HIGH Serum or plasma total choles terol/high density lipoprotein (HDL) cholesterol mass ratOrdered By: Debbie Mac on 01-09-2023 Cholesterol.total/Cho lesterol in HDL [Mass ratio] 1.8 {ratio} <5.0 [facility] Sodium [Moles/volume] in Ser um or PlasmaOrdered By: Debbie Mac on 01-09-2023 Sodium [Moles/Vol] 138 mmol/L 136-145 [facility] Triglyceride [Mass/volume] i n Serum or PlasmaOrdered By: Debbie Mac on 01-09-2023 Triglyceride [Mass/Vol] 69 mg/dL 0-149 [facility] Comment on above: TRIG ATP III CLASSIF ICATIONTRIG less than 150 mg/dL NormalTRIG 150-199 mg/dL Borderline highTRIG 200-500 mg/dL High TRIG greater than 500 mg/dL Very highStandard traceable to the Center for Disease Conrtrol and Prevention (CDC) test method. 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 Normal [facility] TROPONIN, HIGH SENSITIVITYon 01-04-2023 HSTROP 73.1 pg/mL Critically high 4.0-51.3 [facility] Comment on above: Result Comment: CUT- OFF POINTS HAVE BEEN ESTABLISHED BASED ON THE FOURTH UNIVERSAL DEFINITIONS OF MYOCARDIAL INFARCTION. THE UPPER REFERENCE LIMIT (URL) OF TROPONIN, DEFINED THE 99TH PERCENTILE OF cTnI DISTRIBUTION IN A REFERENCE POPULATION, HAS BEEN CONFIRMED THE DECISION THRESHOLD FOR [place] DIAGNOSIS. Performed By: #### H STROPN #### [facility] [address] [place] [address] [address] Lori Sutton Tobacco Screening.on 023 Tobacco use status CPHS b) No [facility] Work Phone: XR CHEST 1 Von 01-04-2023 [...] Large hiatal hernia. Electronically authenticated by: [facility] Date: 2023-01-03 22:39 Normal [facility] BNPon 01-03-2023 Natriuretic peptide B (Bld) [Mass/Vol] 438.0 pg/mL Normal <=1,800.0 [facility] Comment on above: Performed By: #### B VASCULAR SONOGRAPHER ####[facility] [address] [place] [address]DrMelita Sutton CBC AUTO DIFFon 01-03-2023 BASO # 0.0 103/ul Normal 0.0-0.1 [facility] Comment on above: Performed By: #### C BC ####[facility] [address] [place] [address]DrMelita Sutton Basophils/100 WBC (Bld) 0.7 % Normal 0.2-2.0 [facility] Comment on above: Performed By: #### C BC ####[facility] [address] [place] [address]DrMelita Sutton EO # 0.2 103/ul Normal 0.0-0.7 [facility] Comment on above: Performed By: #### C BC ####[facility] [address] [place] [address]Dr. Lori Sutton Eosinophils/100 WBC (Bld) 4.2 % Normal 0.9-7.0 [facility] Comment on above: Performed By: #### C BC ####[facility] [address] [place], [place] [address]Dr. Lori Sutton Erythrocyte distribution width (RBC) [Ratio] 13.7 % Normal 11.0-15.0 [facility] [facility] Comment on above: Performed By: #### C BC ####[facility] [address] [place], [place] [address]Dr. Lori Sutton Hematocrit (Bld) [Volume fraction] 46.1 % Normal 36.0-48.0 [facility] Comment on above: Performed By: #### C BC ####[facility] Erywthntyg[address] [place], [place] [address]Dr. Lori Sutton Hemoglobin (Bld) [Mass/Vol] 14.7 g/dL Normal 12.0-16.0 [facility] Comment on above: Performed By: #### C BC ####[facility] Ciglnwoabr[address] [place], [place] [address]Dr. Lori Sutton IG # 0.01 10e3/ul Normal 0.00-0.03 [facility] Comment on above: Performed By: #### C BC ####[facility] Mnzlzexmk[address] [place], [place] [address]Dr. Lori Sutton IG % 0.2 % Normal 0.0-0.5 [facility] Comment on above: Performed By: #### C BC ####[facility] Ylmimeogkh[address] [place], [place] [address]Dr. Lori Sutton LYMPH # 1.3 103/ul Normal 1.2-3.8 [facility] Comment on above: Performed By: #### C BC ####[facility] Uzwgltclee[address] [place], [place] [address]Dr. Lori Sutton Lymphocytes/100 WBC (Bld) 22.9 % Normal 20.5-60.0 [facility] Comment on above: Performed By: #### C BC ####[facility] [address] [place] [address]Dr. Lori Herman MANUAL DIFF REQ NO Normal [facility] Comment on above: Performed By: #### C BC ####[facility] Fmfzmnykbx[address] [place] [id number]. Lori Sutton MCH (RBC) [Entitic mass] 29.7 pg Normal 26.7-34.0 [facility] Comment on above: Performed By: #### C BC ####[facility] Eblifrlalj[address] [place] [address]Dr. Lori Herman MCHC (RBC) [Mass/Vol] 31.9 g/dL Normal 29.9-35.2 [facility] Comment on above: Performed By: #### C BC ####[facility] Tccmjhnrgf[address] [place] [address]Dr. Lori Herman MCV (RBC) [Entitic vol] 93.1 fL Normal 81.0-99.0 [facility] Comment on above: Performed By: #### C BC ####[facility] Jyyzgsfvzf[address] [place], [place] [address]Dr. Lori Herman MONO # 0.3 103/ul Normal 0.3-0.8 [facility] Comment on above: Performed By: #### C BC ####[facility] Ejckm[address] [place], [place] [address]Dr. Estephaniaurbano Sutton Monocytes/100 WBC (Bld) 4.7 % Normal 1.7-12.0 [facility] Comment on above: Performed By: #### C BC ####[facility] [address]wss[address] [place] [address]Dr. Lori Herman NEUT # 3.9 103/ul Normal 1.4-6.5 [facility] Comment on above: Performed By: #### C BC ####[facility] Pjoat[address]htzi[address] [place], [place] [address]Dr. Estephaniaurbano Sutton Neutrophils/100 WBC (Bld) 67.3 % Normal 43.0-75.0 [facility] Comment on above: Performed By: #### C BC ####[facility] [address]es[address]wgka[address] [place] [id number]. Lori Sutton Platelet mean volume (Bld) [Entitic vol] 10.5 fL Normal 9.5-13.5 [facility] Comment on above: Performed By: #### C BC ####[facility] [address]yciytrdi[address] [place] [id number]. Lori Sutton PLT 211 103/ul Normal 150-450 [facility] Comment on above: Performed By: #### C BC ####[facility] F[address]qydkikz[address] [place] [id number]. Lori Sutton RBC 4.95 106/ul Normal 4.20-5.40 [facility] Comment on above: Performed By: #### C BC ####[facility] Atgoreqrgp[address] [place] [phone]. Lori Sutton WBC 5.7 103/ul Normal 4.0-11.0 [facility] Comment on above: Performed By: #### C BC ####[facility] Wxnzsunxox[address] [place] [address]Dr. Lori Sutton D-DIMERon 01-03-2023 D-DIMER 0.26 mg/L FEU Normal <=0.59 [facility] Comment on above: Performed By: #### D DIM ####[facility] Ehcauvefdq[address] [place] [phone]. Lori Sutton D-DIMER COMMENTS SEE BELOW Normal [facility] Comment on above: Result Comment: Incr [...] generalized hospitalization. Performed By: #### D DIM ####[facility] [address]drjcax[address] [place], [place] [address]Yf. Lori Sutton Office Visit (Cardiology)on 01-03-2023 Follow-up [...] Lead; Status:Active - Perform Order,Retrospective Authorization; Requested for:[id number]; SocHx: Never a smoker Tobacco Use Screening; Status:Complete; Done: [id number] Patient Instructions Continue same medications/treatment. Patient educated [...] atrial fibrillation for which she started seeing [facility] since 2020 after she was hospitalized in [facility] for bradycardia. Adjustment of her medical [...] therapy. Patient is being evaluated recently at [facility] for ablation therapy for atrial fibrillation. [...] had a dual-chamber pacemaker [facility] MRI implanted in June 29, 2021. Clinical [...] 023 Albumin [Mass/Vol] 3.8 g/dL Normal 3.4-5.0 [facility] Comment on above: Performed By: #### C LESTER, HSTROPN ####[facility] [address]mxgupt[address] [place] [address]Dr. Lori Sutton Albumin/Globulin [Mass ratio] 1.2 {ratio} Normal [facility] Comment on above: Performed By: #### C LESTER, HSTROPN ####[facility] Yvtpwif[address]ns[address] [place], [place] [address]Dr. Lori Sutton ALP [Catalytic activity/Vol] 101 U/L Normal 46-116 [facility] Comment on above: Performed By: #### C LESTER, HSTROPN ####[facility] Ovhvdrjlvt95[address] [place] [address]Dr. Lori Sutton ALT [Catalytic activity/Vol] 25 U/L Normal 14-59 [facility] Comment on above: Performed By: #### C LESTER, HSTROPN ####[facility] Cupswhpvfj[address] [place] [address]Dr. Lori Sutton Anion gap [Moles/Vol] 15.5 mmol/L Normal [facility] Comment on above: Performed By: #### C LESTER, HSTROPN ####[facility] Arorlyphsy[address] [place] [address]Dr. Lori Sutton AST [Catalytic activity/Vol] 24 U/L Normal 15-37 [facility] Comment on above: Performed By: #### C LESTER, HSTROPN ####[facility] Oadbvsniew[address] [place] [address]Dr. Lori Sutton Bilirubin [Mass/Vol] 0.8 mg/dL Normal 0.2-1.0 [facility] Comment on above: Performed By: #### C MP, HSTROPN ####[facility] Hlixgyepwt[address] [place] [address]Dr. Lori Sutton Calcium [Mass/Vol] 8.8 mg/dL Normal 8.5-10.1 [facility] Comment on above: Performed By: #### C MP, HSTROPN ####[facility] Donkvsrsdx[address] [place] [address]Dr. Lori Sutton Chloride [Moles/Vol] 105 mmol/L Normal 98-107 [facility] Comment on above: Performed By: #### C MP, HSTROPN ####[facility] Jwqdgnatxj[address] [place] [address]Dr. Lori Sutton CO2 [Moles/Vol] 24.5 mmol/L Normal 21.0-32.0 [facility] Comment on above: Performed By: #### C MP, HSTROPN ####[facility] Fmcay[address]wx[address] [place], [place] [address]Dr. Lori Sutton Creatinine [Mass/Vol] 1.28 mg/dL Critically high 0.55-1.02 [facility] Comment on above: Performed By: #### C MP, HSTROPN ####[facility] Ilfnmegygn[address] [place], [place] [address]Dr. Lori Sutton EGFR-AF SOU[place] 49 mL/min/1.73m2 Critically low >=60 [facility] Comment on above: Performed By: #### C MP, HSTROPN ####[facility] Liawybkrmn[address] [place], [place] [address]Dr. Lori Sutton EGFR-NON AF [place]ORE[place] 40 mL/min/1.73m2 Critically low >=60 [facility] Comment on above: Performed By: #### C MP, HSTROPN ####[facility] Mqpbtprhps[address] [place], [place] [address]Dr. Lori Sutton Globulin (S) [Mass/Vol] 3.2 g/dL Normal [facility] Comment on above: Performed By: #### C MP, HSTROPN ####[facility] Lq[address]ydssfl[address] [place] [address]Dr. Lori Sutton Glucose [Mass/Vol] 230 mg/dL Critically high 74-106 [facility] Comment on above: Performed By: #### C MP, HSTROPN ####[facility] Mqtggcyazk[address] [place] [address]Dr. Lori Sutton Potassium [Moles/Vol] 4.0 mmol/L Normal 3.5-5.1 [facility] Comment on above: Performed By: #### C MP, HSTROPN ####[facility] Wvhcuxdbhr[address] [place] [address]Dr. Lori Sutton Protein [Mass/Vol] 7.0 g/dL Normal 6.4-8.2 [facility] Comment on above: Performed By: #### C MP, HSTROPN ####[facility] Cmgyydmbug[address] [place], [place] [address]Dr. Lori Sutton Sodium [Moles/Vol] 141 mmol/L Normal 136-145 [facility] Comment on above: Performed By: #### C MP, HSTROPN ####[facility] Wungeqeqor[address] [place] [address]Dr. Lori Sutton Urea nitrogen [Mass/Vol] 28.0 mg/dL Critically high 7.0-18.0 [facility] Comment on above: Performed By: #### C MP, HSTROPN ####[facility] Xhqyffziqn[address] [place], [place] [address]Dr. Lori Sutton Urea nitrogen/Creatinine [Mass ratio] 21.9 mg/mg Normal [facility] Comment on above: Performed By: #### C MP, HSTROPN ####[facility] Y[address]arhcqum[address] [place], [place] [address]Dr. Lori Sutton TROPONIN, HIGH SENSITIVITYon 01-03-2023 HSTROP 74.5 pg/mL Critically high 4.0-51.3 [facility] Comment on above: Result Comment: CUT- OFF POINTS HAVE BEEN ESTABLISHED BASED ON THE FOURTH UNIVERSAL DEFINITIONS OF MYOCARDIAL INFARCTION. THE UPPER REFERENCE LIMIT (URL) OF TROPONIN, DEFINED THE 99TH PERCENTILE OF cTnI DISTRIBUTION IN A REFERENCE POPULATION, HAS BEEN CONFIRMED THE DECISION THRESHOLD FOR UT DIAGNOSIS. Performed By: #### C MP, HSTROPN ####[facility] [address]zucv[address] [place] [address]Dr. Lori Sutton Tobacco Screening.on 023 Fall risk assessment a) No falls within the last year [facility] Work Phone: Tobacco use status CPHS b) No [facility] Work Phone: Tobacco Screening. Yes [facility] Work Phone: AMYLASEon 01-02-2023 Amylase [Catalytic activity/Vol] 37 U/L Normal 25-115 [facility] Comment on above: Performed By: #### B VASCULAR SONOGRAPHER, GERRY, CMP #### [facility] [address] [place] [address] Dr. Lori Sutton BNPon 01-02-2023 Natriuretic peptide B (Bld) [Mass/Vol] 690.0 pg/mL Normal <=1,800.0 [facility] Comment on above: Performed By: #### B VASCULAR SONOGRAPHER, GERRY, CMP ####[facility] [address] [place] [address]Dr. Lori Sutton CBC AUTO DIFFon 01-02-2023 BASO # 0.0 103/ul Normal 0.0-0.1 [facility] Comment on above: Performed By: #### C BC #### [facility] [address] [place] [address] [address] Lori Sutton Basophils/100 WBC (Bld) 0.6 % Normal 0.2-2.0 [facility] Comment on above: Performed By: #### C BC #### [facility] [address] [place] [address] [address] Lori Sutton EO # 0.2 103/ul Normal 0.0-0.7 [facility] Comment on above: Performed By: #### C BC #### [facility] [address] [place] [address] Dr. Lori Sutton Eosinophils/100 WBC (Bld) 2.8 % Normal 0.9-7.0 [facility] Comment on above: Performed By: #### C BC #### [facility] [address] [place] [address] [address] Lori Sutton Erythrocyte distribution width (RBC) [Ratio] 13.8 % Normal 11.0-15.0 [facility] Comment on above: Performed By: #### C BC #### [facility] [address] [place] [address] Dr. Lori Sutton Hematocrit (Bld) [Volume fraction] 46.3 % Normal 36.0-48.0 [facility] Comment on above: Performed By: #### C BC #### [facility] [address] [place] [address] Dr. Lori Sutton Hemoglobin (Bld) [Mass/Vol] 15.0 g/dL Normal 12.0-16.0 [facility] Comment on above: Performed By: #### C BC #### [facility] [address] [place] [address] Dr. Lori Sutton IG # 0.01 10e3/ul Normal 0.00-0.03 [facility] Comment on above: Performed By: #### C BC #### [facility] [address] [place] [address] Dr. Lori Sutton IG % 0.2 % Normal 0.0-0.5 [facility] Comment on above: Performed By: #### C BC #### [facility] [address] [place] [address] Dr. Lori Sutton LYMPH # 1.1 103/ul Critically low 1.2-3.8 [facility] Comment on above: Performed By: #### C BC #### [facility] [address] [place] [address] Dr. Lori Sutton Lymphocytes/100 WBC (Bld) 17.6 % Critically low 20.5-60.0 [facility] Comment on above: Performed By: #### C BC #### [facility] [address] [place] [address] Dr. Lori Sutton MANUAL DIFF REQ NO Normal [facility] Comment on above: Performed By: #### C BC #### [facility] [address] [place] [address] Dr. Lori Sutton MCH (RBC) [Entitic mass] 29.7 pg Normal 26.7-34.0 [facility] Comment on above: Performed By: #### C BC #### [facility] [address] [place] [address] Dr. Lori Sutton MCHC (RBC) [Mass/Vol] 32.4 g/dL Normal 29.9-35.2 [facility] Comment on above: Performed By: #### C BC #### [facility] [address] [place] [address] Dr. Lori Sutton MCV (RBC) [Entitic vol] 91.7 fL Normal 81.0-99.0 [facility] Comment on above: Performed By: #### C BC #### [facility] [address] [place] [address] Dr. Lori Sutton MONO # 0.4 103/ul Normal 0.3-0.8 [facility] Comment on above: Performed By: #### C BC #### [facility] [address] [place] [address] Dr. Lori Sutton Monocytes/100 WBC (Bld) 6.2 % Normal 1.7-12.0 [facility] Comment on above: Performed By: #### C BC #### [facility] [address] [place] [address] Dr. Lori Sutton NEUT # 4.6 103/ul Normal 1.4-6.5 [facility] Comment on above: Performed By: #### C BC #### [facility] [address] [place] [address] Dr. Lori Sutton Neutrophils/100 WBC (Bld) 72.6 % Normal 43.0-75.0 [facility] Comment on above: Performed By: #### C BC #### [facility] [address] [place] [address] Dr. Lori Sutton Platelet mean volume (Bld) [Entitic vol] 10.3 fL Normal 9.5-13.5 [facility] Comment on above: Performed By: #### C BC #### [facility] [address] [place] [address] [address] Lori Sutton PLT 207 103/ul Normal 150-450 [facility] Comment on above: Performed By: #### C BC #### [facility] [address] [place] [address] [address] Lori Sutton RBC 5.05 106/ul Normal 4.20-5.40 [facility] Comment on above: Performed By: #### C BC #### [facility] [address] [place] [address] [address] Lori Sutton WBC 6.3 103/ul Normal 4.0-11.0 [facility] Comment on above: Performed By: #### C BC #### [facility] [address] [place] [address] [address] Lori Sutton PROF 14(COMP METB)on 023 Albumin [Mass/Vol] 3.9 g/dL Normal 3.4-5.0 [facility] Comment on above: Performed By: #### B VASCULAR SONOGRAPHER, GERRY, CMP ####[facility] [address] [place] [address]Dr. Lori Sutton Albumin/Globulin [Mass ratio] 1.2 {ratio} Normal [facility] Comment on above: Performed By: #### B VASCULAR SONOGRAPHER, GERRY, CMP ####[facility] R[address]vbzd[address] [place] [address]Dr. Lori Sutton ALP [Catalytic activity/Vol] 98 U/L Normal 46-116 [facility] Comment on above: Performed By: #### B VASCULAR SONOGRAPHER, GERRY, CMP ####[facility] Npvttjzizv[address] [place] [address]Dr. Lori Sutton ALT [Catalytic activity/Vol] 24 U/L Normal 14-59 [facility] Comment on above: Performed By: #### B VASCULAR SONOGRAPHER, GERRY, CMP ####[facility] Lykpxwidta[address] [place] [address]Dr. Lori Sutton Anion gap [Moles/Vol] 12.0 mmol/L Normal [facility] Comment on above: Performed By: #### B VASCULAR SONOGRAPHER, GERRY, CMP ####[facility] [address]hyx[address] [place] [address]Dr. Lori Sutton AST [Catalytic activity/Vol] 25 U/L Normal 15-37 [facility] Comment on above: Performed By: #### B VASCULAR SONOGRAPHER, GERRY, CMP ####[facility] Bbl[address]wwbrm[address] [place] [address]Dr. Lori Sutton Bilirubin [Mass/Vol] 0.8 mg/dL Normal 0.2-1.0 [facility] Comment on above: Performed By: #### B VASCULAR SONOGRAPHER, GERRY, CMP ####[facility] [address]ibpoix[address] [place], [place] [address]Dr. Lori Sutton Calcium [Mass/Vol] 9.2 mg/dL Normal 8.5-10.1 [facility] Comment on above: Performed By: #### B VASCULAR SONOGRAPHER, GERRY, CMP ####[facility] Egmbvwhhdg[address] [place], [place] [address]Dr. Lori Sutton Chloride [Moles/Vol] 107 mmol/L Normal 98-107 [facility] Comment on above: Performed By: #### B VASCULAR SONOGRAPHER, GERRY, CMP ####[facility] Vywx[address]quxf[address] [place], [place] [address]Dr. Lori Sutton CO2 [Moles/Vol] 28.6 mmol/L Normal 21.0-32.0 [facility] Comment on above: Performed By: #### B VASCULAR SONOGRAPHER, GERRY, CMP ####[facility] [address]ov[address] [place], [place] [address]Dr. Lori Sutton Creatinine [Mass/Vol] 1.08 mg/dL Critically high 0.55-1.02 [facility] Comment on above: Performed By: #### B VASCULAR SONOGRAPHER, GERRY, CMP ####[facility] Rumewwvlhq[address] [place], [place] [address]Dr. Lori Sutton EGFR-AF [place] 59 mL/min/1.73m2 Critically low >=60 [facility] Comment on above: Performed By: #### B VASCULAR SONOGRAPHER, GERRY, CMP ####[facility] [address]wwvsteya[address] [place], [place] [address]Dr. Lori Sutton EGFR-NON AF [place] 49 mL/min/1.73m2 Critically low >=60 [facility] Comment on above: Performed By: #### B VASCULAR SONOGRAPHERGERRY, CMP ####[facility] [address]ipgbnbh[address] [place] [address]Dr. Lori Sutton Globulin (S) [Mass/Vol] 3.2 g/dL Normal [facility] Comment on above: Performed By: #### B VASCULAR SONOGRAPHERGERRY, CMP ####[facility] T[address]ytmqzjz[address] [place] [address]Dr. Lori Sutton Glucose [Mass/Vol] 103 mg/dL Normal 74-106 [facility] Comment on above: Performed By: #### B VASCULAR SONOGRAPHERGERRY, CMP ####[facility] Cmodwckfvo[address] [place] [address]Dr. Lori Sutton Potassium [Moles/Vol] 4.6 mmol/L Normal 3.5-5.1 [facility] Comment on above: Performed By: #### B VASCULAR SONOGRAPHERGERRY, CMP ####[facility] Exmtksgnyb[address] [place] [address]Dr. Lori Sutton Protein [Mass/Vol] 7.1 g/dL Normal 6.4-8.2 [facility] Comment on above: Performed By: #### B VASCULAR SONOGRAPHERGERRY, CMP ####[facility] [address]xphztwdwo[address] [place] [address]Dr. Lori Sutton Sodium [Moles/Vol] 143 mmol/L Normal 136-145 [facility] Comment on above: Performed By: #### B VASCULAR SONOGRAPHERGERRY, CMP ####[facility] [address]rmnrfoaqc[address] [place] [address]Dr. Lori Sutton Urea nitrogen [Mass/Vol] 29.0 mg/dL Critically high 7.0-18.0 [facility] Comment on above: Performed By: #### B VASCULAR SONOGRAPHERGERRY, CMP ####[facility] S[address]ow[address]ylu[address] [place] [address]Dr. Lori Sutton Urea nitrogen/Creatinine [Mass ratio] 26.9 mg/mg Normal [facility] Comment on above: Performed By: #### B VASCULAR SONOGRAPHERGERRY, CMP ####[facility] [address]xpxgkd[address] [place], [place] [address]Sg. Lori Sutton XR CHEST 2 Von 01-02-2023 [...] ARI LEVY Date: 2023-01-02 12:33 Normal [facility] Office Visit (Cardiology)on 12-25-2022 Follow-up visit Diagnoses/Problems Assessed Pacemaker (V45.01) (Z95.0) Persistent atrial fibrillation (427.31) (I48.19) Diastolic heart failure (428.30) (I50.30) Low left ventricular ejection fraction (794.30) (R94.30) Chief Complaint AUSTIN GOLDEN is being seen for a cardiovascular evaluation of atrial fibrillation. Adult Risk Screening There are no spiritual/cultural practices/values/needs that are important to know Initial Fall Risk Screening: AUSTIN has not fallen in the last 6 months. Her fall did not result in injury. AUSTIN does not have a fear of falling. [...] out medical forms. History of Present Illness Austin Golden is an 82 y/o female referred by Dr Mac for evaluation of AF. PMH includes HTN, HLD, HF, SSS s/p PPG implant, CKD, obesity and AF. Treatment of her AF includes Amiodarone (d/c?d for concerns of halfway side effects), tikosyn (prolonged OTc), sotalol and DCCV (09/2022). Symptoms of her AF include fatigue and BRAY. Pt follows with Dr Stover for management of her AF. Pt has previously been on Amio but was concerned about terminologist side effects. She was then put on [...] AV CONDUCTION @ 109 bpm Echo 08/2022 ([facility] ? [facility]): LVEF 40%, moderate anteroseptal hypokinesis with wall [...] PM S (more content not included)... Normal [employer] Alkaline phosphatase [Enzyma tic activity/volume] in Serum or PlasmaOrdered By: Wilbur Watson on 11-27-2022 ALP [Catalytic activity/Vol] 67 U/L 34-104 [facility] Amylase [Enzymatic activity/ volume] in Serum or PlasmaOrdered By: Wilbur Watson on 11-27-2022 Amylase [Catalytic activity/Vol] 24 U/L 29-103 [facility] Bilirubin.direct [Mass/volum e] in Serum or PlasmaOrdered By: Wilbur Watson on 11-27-2022 Bilirubin.direct [Mass/Vol] 0.20 mg/dL 0.03-0.18 [facility] Bilirubin.total [Mass/volume ] in Serum or PlasmaOrdered By: Wilbur Watson on 11-27-2022 Bilirubin [Mass/Vol] 0.8 mg/dL 0.3-1.0 [facility] Lipase [Enzymatic activity/v olume] in Serum or PlasmaOrdered By: Wilbur Watson on 11-27-2022 Lipase [Catalytic activity/Vol] 31.0 U/L 11.0-82.0 [facility] Serum or plasma non-glucuron idated bilirubin measurement (mass/volume)Ordered By: Wilbur Watson on 11-27-2022 Bilirubin.indirect [Mass/Vol] 0.6 mg/dL [facility] Basophils Auto (Bld) [#/Vol] Ordered By: Wilbur Watson on 11-20-2022 Basophils (Bld) [#/Vol] 0.1 10*3/uL 0.0-0.2 [facility] Basophils/100 WBC Auto (Bld) Ordered By: Wilbur Watson on 11-20-2022 Basophils/100 WBC (Bld) 0.9 % . [facility] Calcium [Mass/volume] in Ser um or PlasmaOrdered By: Wilbur Watson on 11-20-2022 Calcium [Mass/Vol] 9.5 mg/dL 8.6-10.3 [facility] Carbon dioxide, total [Moles /volume] in Serum or PlasmaOrdered By: Wilbur Watson on 11-20-2022 CO2 [Moles/Vol] 25.5 mmol/L 21.0-31.0 [facility] Chloride [Moles/volume] in S vaughn or PlasmaOrdered By: Wilbur Watson on 11-20-2022 Chloride [Moles/Vol] 107 mmol/L 98-107 [facility] Creatinine [Mass/volume] in Serum or PlasmaOrdered By: Wilbur Watson on 11-20-2022 Creatinine [Mass/Vol] 1.08 mg/dL 0.60-1.20 [facility] Eosinophils Auto (Bld) [#/Vo l]Ordered By: Wilbur Watson on 11-20-2022 Eosinophils (Bld) [#/Vol] 0.3 10*3/uL 0.0-0.45 [facility] Eosinophils/100 WBC Auto (Bl d)Ordered By: Wilbur Watson on 11-20-2022 Eosinophils/100 WBC (Bld) 3.6 % . [facility] Erythrocyte distribution wid th Auto (RBC) [Ratio]Ordered By: Wilbur Watson on 11-20-2022 Erythrocyte distribution width (RBC) [Ratio] 13.9 % 11.9-15.3 [facility] Glucose [Mass/volume] in Ser um or PlasmaOrdered By: Wilbur Watson on 11-20-2022 Glucose [Mass/Vol] 91 mg/dL 70-100 [facility] Comment on above: ADA recommended refe rence rangeRandom Glucose Reference Range is dependent on time and content of last meal. Glucose of more than 200 mg/dL in a nonstressed, ambulatory subject supports the diagnosis of Diabetes Mellitus. Hematocrit Auto (Bld) [Volum e fraction]Ordered By: Wilbur Watson on 11-20-2022 Hematocrit (Bld) [Volume fraction] 46.1 % 34.0-46.4 [facility] Hemoglobin [Mass/volume] in BloodOrdered By: Wilbur Watson on 11-20-2022 Hemoglobin (Bld) [Mass/Vol] 15.2 g/dL 11.8-15.4 [facility] Leukocytes [#/volume] correc anne marie for nucleated erythrocytes in Blood by Automated counOrdered By: Wilbur Watson on 11-20-2022 WBC corrected for nucl RBC Auto (Bld) [#/Vol] 7.0 10*3/uL 3.8-11.6 [facility] Lymphocytes Auto (Bld) [#/Vo l]Ordered By: Wilbur Watson on 11-20-2022 Lymphocytes (Bld) [#/Vol] 1.6 10*3/uL 1.00-4.8 [facility] Lymphocytes/100 WBC Auto (Bl d)Ordered By: Wilbur Watson on 11-20-2022 Lymphocytes/100 WBC (Bld) 23.1 % . [facility] MCH Auto (RBC) [Entitic mass ]Ordered By: Wilbur Watson on 11-20-2022 MCH (RBC) [Entitic mass] 29.4 pg 24.7-34.3 [facility] MCHC Auto (RBC) [Mass/Vol]Or dered By: Wilbur Watson on 11-20-2022 MCHC (RBC) [Mass/Vol] 33.0 g/dL 32.0-35.0 [facility] MCV Auto (RBC) [Entitic vol] Ordered By: Wilbur Watson on 11-20-2022 MCV (RBC) [Entitic vol] 88.9 fL 80-100 [facility] Monocytes Auto (Bld) [#/Vol] Ordered By: Wilbur Watson on 11-20-2022 Monocytes (Bld) [#/Vol] 0.5 10*3/uL 0.0-0.8 [facility] Monocytes/100 WBC Auto (Bld) Ordered By: Wilbur Watson on 11-20-2022 Monocytes/100 WBC (Bld) 7.4 % . [facility] Neutrophils Auto (Bld) [#/Vo l]Ordered By: Wilbur Watson on 11-20-2022 Neutrophils (Bld) [#/Vol] 4.6 10*3/uL 1.8-7.7 [facility] Neutrophils/100 WBC Auto (Bl d)Ordered By: Wilbur Watson on 11-20-2022 Neutrophils/100 WBC (Bld) 65.0 % . [facility] No Panel InformationOrdered By: Wilbur Watson on 11-20-2022 Estimated GFR (CKD-EPI) 51.927 mL/Min [facility] Creatinine Clearance (Chem N/A [facility] Nucleated erythrocytes [Pres ence] in Blood by Automated countOrdered By: Wilbur Watson on 11-20-2022 Nucleated RBC Auto Ql (Bld) 0.1 /100{WBC} 0-0.5 [facility] Platelet mean volume Auto (B ld) [Entitic vol]Ordered By: Wilbur Watson on 11-20-2022 Platelet mean volume (Bld) [Entitic vol] 9.1 fL 6.3-10.7 [facility] Platelets Auto (Bld) [#/Vol] Ordered By: Wilbur Watson on 11-20-2022 Platelets (Bld) [#/Vol] 220 10*3/uL 150-450 [facility] Potassium [Moles/volume] in Serum or PlasmaOrdered By: Wilbur Watson on 11-20-2022 Potassium [Moles/Vol] 4.5 mmol/L 3.5-5.1 [facility] RBC Auto (Bld) [#/Vol]Ordere d By: Wilbur Watson on 11-20-2022 RBC (Bld) [#/Vol] 5.18 10*6/uL 3.60-5.00 [facility] Serum or plasma anion gap de terminationOrdered By: Wilbur Watson on 11-20-2022 Anion gap [Moles/Vol] 12.0 mmol/L 6.0-15.0 [facility] Sodium [Moles/volume] in Ser um or PlasmaOrdered By: Wilbur Watson on 11-20-2022 Sodium [Moles/Vol] 140 mmol/L 136-145 [facility] Urea nitrogen [Mass/volume] in Serum or PlasmaOrdered By: Wilbur Watson on 11-20-2022 Urea nitrogen [Mass/Vol] 31 mg/dL 7-25 [facility] WBC Auto (Bld) [#/Vol]Ordere d By: Wilbur Watson on 11-20-2022 WBC (Bld) [#/Vol] 7.0 10*3/uL 3.8-11.6 [facility] MG MAMM SCREEN 3D MARYBETH CADon 10-16-2022 MG MAMM SCREEN 3D MARYBETH CAD Patient: AUSTIN GOLDEN Exam Date: 10/16/2022 : 1940 Gender:F Ordering : DR JAZMIN العلي D.O. Admission #: [id number] Family : Order #: [id number] CLICK HERE TO VIEW EXAM RADIOLOGY REPORT [...] sarcoma cancer at age 45. LOCATION: [facility] BREAST COMPOSITION: Extremely dense, which lowers [...] MD on 10/16/2022 at 14:06 Approved by: Hrady Lira MD on 10/16/2022 at 14:09 Normal [facility] Office Visit (Cardiology)on 10-13-2022 Follow-up visit [...] Weight Tips; Status:Complete - Retrospective Authorization; Done: [id number] Some eating tips that can help you lose weight.; Status:Complete - Retrospective Authorization; Done: 13Oct2022 Gallstones General Surgery Referral Evaluation and Treatment Evaluate AND Treat Status: Hold For - Scheduling,Retrospective Authorization Requested for: [id number] Persistent atrial fibrillation Renew: Sotalol HCl - 80 MG Oral Tablet (Betapace); TAKE 1 TABLET BY MOUTH TWICE DAILY IO EKG Electrocardiogram- 12 Lead; Status:Complete; Done: 13Oct2022 SocHx: Never a smoker Tobacco Use Screening; Status:Complete; Done: [id number] Patient Instructions Please bring all medicines, vitamins, [...] Follow up in 3 months Chief Complaint [place] GOLD[place] [facility]. History of Present Illness Patient [...] Medication fentany (more content not included)... Normal [employer] Tobacco Screening.on 023 Fall risk assessment a) No falls within the last year [facility] [place] [address] [place] Work Phone: Tobacco use status CPHS b) No [facility] [place] [address] DO Work Phone: Tobacco Screening. Yes [facility] [place] [address] [place] Work Phone: Tobacco Screening.on 023 Fall risk assessment a) No falls within the last year [facility] [place] [address] DO Work Phone: Tobacco use status CPHS b) No [facility] [place] [address] DO Work Phone: Basophils Auto (Bld) [#/Vol] Ordered By: Katie Dukes on 09-21-2022 Basophils (Bld) [#/Vol] 0.0 10*3/uL 0.0-0.2 [facility] Basophils/100 WBC Auto (Bld) Ordered By: Katie Dukes on 09-21-2022 Basophils/100 WBC (Bld) 0.7 % . [facility] Creatine kinase [Enzymatic a ctivity/volume] in Serum or PlasmaOrdered By: Debbie Mac on 09-21-2022 CK [Catalytic activity/Vol] 76 U/L 22-269 [facility] Creatinine and Glomerular fi ltration rate.predicted panel (S/P/Bld)Ordered By: Katie Dukes on 09-21-2022 Creatinine [Mass/Vol] 1.08 mg/dL 0.44-1.03 [facility] Eosinophils Auto (Bld) [#/Vo l]Ordered By: Katie Dukes on 09-21-2022 Eosinophils (Bld) [#/Vol] 0.3 10*3/uL 0.0-0.45 [facility] Eosinophils/100 WBC Auto (Bl d)Ordered By: Katie Dukes on 09-21-2022 Eosinophils/100 WBC (Bld) 4.6 % . [facility] Erythrocyte distribution wid th Auto (RBC) [Ratio]Ordered By: Katie Dukes on 09-21-2022 Erythrocyte distribution width (RBC) [Ratio] 13.5 % 11.9-15.3 [facility] Estimated glomerular filtrat ion rate (GFR) non- AmericanOrdered By: Katie Dukes on 09-21-2022 GFR/1.73 sq M.predicted among non-blacks MDRD (S/P/Bld) [Vol rate/Area] 49 mL/Min [facility] Hematocrit Auto (Bld) [Volum e fraction]Ordered By: Katie Dukes on 09-21-2022 Hematocrit (Bld) [Volume fraction] 39.6 % 34.0-46.4 [facility] Hemoglobin [Mass/volume] in BloodOrdered By: Katie Dukes on 09-21-2022 Hemoglobin (Bld) [Mass/Vol] 13.0 g/dL 11.8-15.4 [facility] Laboratory - Chemistry and C hemistry - challengeOrdered By: Debbie Mac on 09-21-2022 Natriuretic peptide B (Bld) [Mass/Vol] 203.0 pg/mL 5-100 [facility] Laboratory - Chemistry and C hemistry - challengeOrdered By: Katie Dukes on 09-21-2022 Magnesium [Mass/Vol] 1.8 mg/dL 1.6-2.6 [facility] Leukocytes [#/volume] correc anne marie for nucleated erythrocytes in Blood by Automated counOrdered By: Katie Dukes on 09-21-2022 WBC corrected for nucl RBC Auto (Bld) [#/Vol] 5.7 10*3/uL 3.8-11.6 [facility] Lymphocytes Auto (Bld) [#/Vo l]Ordered By: Katie Dukes on 09-21-2022 Lymphocytes (Bld) [#/Vol] 1.1 10*3/uL 1.00-4.8 [facility] Lymphocytes/100 WBC Auto (Bl d)Ordered By: Katie Dukes on 09-21-2022 Lymphocytes/100 WBC (Bld) 18.9 % . [facility] MCH Auto (RBC) [Entitic mass ]Ordered By: Katie Dukes on 09-21-2022 MCH (RBC) [Entitic mass] 29.6 pg 24.7-34.3 [facility] MCHC Auto (RBC) [Mass/Vol]Or dered By: Katie Dukes on 09-21-2022 MCHC (RBC) [Mass/Vol] 32.9 g/dL 32.0-35.0 [facility] MCV Auto (RBC) [Entitic vol] Ordered By: Katie Dukes on 09-21-2022 MCV (RBC) [Entitic vol] 89.8 fL 80-100 [facility] Monocytes Auto (Bld) [#/Vol] Ordered By: Katie Dukes on 09-21-2022 Monocytes (Bld) [#/Vol] 0.4 10*3/uL 0.0-0.8 [facility] Monocytes/100 WBC Auto (Bld) Ordered By: Katie Dukes on 09-21-2022 Monocytes/100 WBC (Bld) 7.6 % . [facility] Neutrophils Auto (Bld) [#/Vo l]Ordered By: Katie Dukes on 09-21-2022 Neutrophils (Bld) [#/Vol] 3.9 10*3/uL 1.8-7.7 [facility] Neutrophils/100 WBC Auto (Bl d)Ordered By: Katie Dukes on 09-21-2022 Neutrophils/100 WBC (Bld) 68.2 % . [facility] No Panel InformationOrdered By: Katie Dukes on 09-21-2022 Estimated GFR () 59 mL/Min [facility] Comment on above: GFR estimated refere nce range: According to KDOQI guidelines, <60 ml/min/1.73m2 is sufficient to diagnose a patient with chronic kidney disease. Pharmacy Creatinine Clearance (Chem 37.27 [facility] Nucleated erythrocytes [Pres ence] in Blood by Automated countOrdered By: Katie Dukes on 09-21-2022 Nucleated RBC Auto Ql (Bld) 0.0 /100{WBC} 0-0.5 [facility] Platelet mean volume Auto (B ld) [Entitic vol]Ordered By: Katie Dkues on 09-21-2022 Platelet mean volume (Bld) [Entitic vol] 9.5 fL 6.3-10.7 [facility] Platelets Auto (Bld) [#/Vol] Ordered By: Katie Dukes on 09-21-2022 Platelets (Bld) [#/Vol] 173 10*3/uL 150-450 [facility] RBC Auto (Bld) [#/Vol]Ordere d By: Katie Dukes on 09-21-2022 RBC (Bld) [#/Vol] 4.41 10*6/uL 3.60-5.00 [facility] Serum or plasma anion gap de terminationOrdered By: Katie Dukes on 09-21-2022 Anion gap [Moles/Vol] 11.0 mmol/L 6.0-15.0 [facility] Serum or plasma calcium mitch urement (mass/volume)Ordered By: Katie Dukes on 09-21-2022 Calcium [Mass/Vol] 8.6 mg/dL 8.2-10.2 [facility] Serum or plasma chloride carlitos surement (moles/volume)Ordered By: Katie Dukes on 09-21-2022 Chloride [Moles/Vol] 107 mmol/L 95-114 [facility] Serum or plasma creatine kin ase MB (CKMB)/total creatine kinase (CK) ratio by calculaOrdered By: Debbie Mac on 09-21-2022 CK.MB Calc [Catalytic fraction] 2.5 % 0.00-2.50 [facility] Serum or plasma creatine kin ase MB measurement (mass/volume)Ordered By: Debbie Mac on 09-21-2022 CK.MB [Mass/Vol] 1.9 ng/mL 0.6-6.3 [facility] Serum or plasma glucose mitch urement (mass/volume)Ordered By: Katie Dukes on 09-21-2022 Glucose [Mass/Vol] 94 mg/dL 70-100 [facility] Comment on above: ADA recommended refe rence rangeRandom Glucose Reference Range is dependent on time and content of last meal. Glucose of more than 200 mg/dL in a nonstressed, ambulatory subject supports the diagnosis of Diabetes Mellitus. Serum or plasma potassium me asurement (moles/volume)Ordered By: Katie Dukes on 09-21-2022 Potassium [Moles/Vol] 3.9 mmol/L 3.5-5.1 [facility] Serum or plasma sodium measu rement (moles/volume)Ordered By: Katie Dukes on 09-21-2022 Sodium [Moles/Vol] 137 mmol/L 136-146 [facility] Serum or plasma total carbon dioxide measurement (moles/volume)Ordered By: Katie Dukes on 09-21-2022 CO2 [Moles/Vol] 22.9 mmol/L 22.0-30.0 [facility] Serum or plasma urea nitroge n measurement (mass/volume)Ordered By: Katie Dukes on 09-21-2022 Urea nitrogen [Mass/Vol] 18 mg/dL 9-23 [facility] Troponin I.cardiac [Mass/vol ume] in Serum or Plasma by High sensitivity methodOrdered By: Debbie Mac on 09-21-2022 Troponin I.cardiac High sensitivity method [Mass/Vol] 9 pg/mL 0-15 [facility] WBC Auto (Bld) [#/Vol]Ordere d By: Katie Dukes on 09-21-2022 WBC (Bld) [#/Vol] 5.7 10*3/uL 3.8-11.6 [facility] Glucose Glucometer (BldC) [M ass/Vol]Ordered By: Katie Dukes on 09-19-2022 Glucose [Mass/Vol] 93 mg/dL [facility] Comment on above: Random Glucose Refer ence Range is dependent on time and content of last meal. Glucose of more than 200 mg/dL in a nonstressed, ambulatory subject supports the diagnosis of Diabetes Mellitus. No Panel InformationOrdered By: Katie Dukes on 09-19-2022 Bedside Glucose Comment Glu2: cleaned meter [facility] Activated partial thrombopla stin time (aPTT) in platelet poor plasma by coagulation aOrdered By: Indy Rolon on 09-17-2022 aPTT Coag (PPP) [Time] 40.4 s 25.1-36.5 [facility] Automated erythrocytes count in urine sediment (number/area)Ordered By: Indy Rolon on 09-17-2022 RBC Auto (Urine sed) [#/Area] 10-19 [HPF] 0-4 [facility] Automated leukocytes count i n urine sediment (number/area)Ordered By: Indy Rolon on 09-17-2022 WBC Auto (Urine sed) [#/Area] 20-49 [HPF] 0-4 [facility] Automated urine hyaline cast s count (number/volume)Ordered By: Indy Rolon on 09-17-2022 Hyaline casts Auto (U) [#/Vol] 3-4 [LPF] 0-1 [facility] Basophils Auto (Bld) [#/Vol] Ordered By: Indy Rolon on 09-17-2022 Basophils (Bld) [#/Vol] 0.0 10*3/uL 0.0-0.2 [facility] Basophils/100 WBC Auto (Bld) Ordered By: Indy Rolon on 09-17-2022 Basophils/100 WBC (Bld) 0.6 % . [facility] Bilirubin Test strip Ql (U)O rdered By: Indy Rolon on 09-17-2022 Bilirubin Ql (U) Negative Negative [facility] Body fluid albumin measureme nt (mass/volume)Ordered By: Indy Rolon on 09-17-2022 Albumin (Body fld) [Mass/Vol] 4.1 g/dL 3.2-5.5 [facility] Casts typing in urine sedime nt by light microscopyOrdered By: Indy Rolon on 09-17-2022 Casts LM Nom (Urine sed) None seen [LPF] None Seen [facility] Color Auto (U)Ordered By: Jordan Rolon on 09-17-2022 Color (U) Dark yellow Yellow [facility] Creatinine and Glomerular fi ltration rate.predicted panel (S/P/Bld)Ordered By: Indy Rolon on 09-17-2022 Creatinine [Mass/Vol] 1.23 mg/dL 0.44-1.03 [facility] Eosinophils Auto (Bld) [#/Vo l]Ordered By: Indy Rolon on 09-17-2022 Eosinophils (Bld) [#/Vol] 0.3 10*3/uL 0.0-0.45 [facility] Eosinophils/100 WBC Auto (Bl d)Ordered By: Indy Rolon on 09-17-2022 Eosinophils/100 WBC (Bld) 3.5 % . [facility] Erythrocyte distribution wid th Auto (RBC) [Ratio]Ordered By: Indy Rolon on 09-17-2022 Erythrocyte distribution width (RBC) [Ratio] 13.5 % 11.9-15.3 [facility] Estimated glomerular filtrat ion rate (GFR) non- AmericanOrdered By: Indy Rolon on 09-17-2022 GFR/1.73 sq M.predicted among non-blacks MDRD (S/P/Bld) [Vol rate/Area] 42 mL/Min [facility] Globulin Calc (S) [Mass/Vol] Ordered By: Indy Rolon on 09-17-2022 Globulin (S) [Mass/Vol] 2.2 g/dL [facility] Hematocrit Auto (Bld) [Volum e fraction]Ordered By: Indy Rolon on 09-17-2022 Hematocrit (Bld) [Volume fraction] 43.5 % 34.0-46.4 [facility] Hemoglobin [Mass/volume] in BloodOrdered By: Indy Rolon on 09-17-2022 Hemoglobin (Bld) [Mass/Vol] 14.4 g/dL 11.8-15.4 [facility] Ketones Auto test strip (U) [Mass/Vol]Ordered By: Indy Rolon on 09-17-2022 Ketones (U) [Mass/Vol] Trace Negative [facility] Laboratory - Chemistry and C hemistry - challengeOrdered By: Indy Rolon on 09-17-2022 Magnesium [Mass/Vol] 2.1 mg/dL 1.6-2.6 [facility] Natriuretic peptide B (Bld) [Mass/Vol] 292.0 pg/mL 5-100 [facility] Laboratory - CoagulationOrde red By: Indy Rolon on 09-17-2022 PT Coag (PPP) [Time] 23.4 s 9.0-12.9 [facility] Leukocytes [#/volume] correc anne marie for nucleated erythrocytes in Blood by Automated counOrdered By: Indy Rolon on 09-17-2022 WBC corrected for nucl RBC Auto (Bld) [#/Vol] 8.0 10*3/uL 3.8-11.6 [facility] Lymphocytes Auto (Bld) [#/Vo l]Ordered By: Indy Rolon on 09-17-2022 Lymphocytes (Bld) [#/Vol] 1.2 10*3/uL 1.00-4.8 [facility] Lymphocytes/100 WBC Auto (Bl d)Ordered By: Indy Rolon on 09-17-2022 Lymphocytes/100 WBC (Bld) 15.2 % . [facility] MCH Auto (RBC) [Entitic mass ]Ordered By: Indy Rolon on 09-17-2022 MCH (RBC) [Entitic mass] 30.1 pg 24.7-34.3 [facility] MCHC Auto (RBC) [Mass/Vol]Or dered By: Indy Rolon on 09-17-2022 MCHC (RBC) [Mass/Vol] 33.2 g/dL 32.0-35.0 [facility] MCV Auto (RBC) [Entitic vol] Ordered By: Indy Rolon on 09-17-2022 MCV (RBC) [Entitic vol] 90.6 fL 80-100 [facility] Monocyte distribution width [Entitic volume] in Blood by AutomatedOrdered By: Indy Rolon on 09-17-2022 Monocyte distribution width Auto (Bld) [Entitic vol] 19.67 % 0.00-20.00 [facility] Monocytes Auto (Bld) [#/Vol] Ordered By: Indy Rolon on 09-17-2022 Monocytes (Bld) [#/Vol] 0.6 10*3/uL 0.0-0.8 [facility] Monocytes/100 WBC Auto (Bld) Ordered By: Indy Rolon on 09-17-2022 Monocytes/100 WBC (Bld) 7.1 % . [facility] Neutrophils Auto (Bld) [#/Vo l]Ordered By: Indy Rolon on 09-17-2022 Neutrophils (Bld) [#/Vol] 5.9 10*3/uL 1.8-7.7 [facility] Neutrophils/100 WBC Auto (Bl d)Ordered By: Indy Rolon on 09-17-2022 Neutrophils/100 WBC (Bld) 73.6 % . [facility] Nitrite Test strip Ql (U)Ord ered By: Indy Rolon on 09-17-2022 Nitrite Ql (U) Negative Negative [facility] No Panel InformationOrdered By: Indy Rolon on 09-17-2022 Estimated GFR () 51 mL/Min [facility] Comment on above: GFR estimated refere nce range: According to KDOQI guidelines, <60 ml/min/1.73m2 is sufficient to diagnose a patient with chronic kidney disease. Pharmacy Creatinine Clearance (Chem N/A [facility] Nucleated erythrocytes [Pres ence] in Blood by Automated countOrdered By: Indy Rolon on 09-17-2022 Nucleated RBC Auto Ql (Bld) 0.3 /100{WBC} 0-0.5 [facility] Platelet mean volume Auto (B ld) [Entitic vol]Ordered By: Indy Rolon on 09-17-2022 Platelet mean volume (Bld) [Entitic vol] 9.4 fL 6.3-10.7 [facility] Platelet poor plasma interna tional normalized ratio (INR) by coagulation assay (relatOrdered By: Indy Rolon on 09-17-2022 INR Coag (PPP) [Relative time] 2.0 {INR} [facility] Comment on above: INR Therapeutic Rang [...] 09-17-2022 Platelets (Bld) [#/Vol] 203 10*3/uL 150-450 [facility] Protein Auto test strip (U) [Mass/Vol]Ordered By: Indy Rolon on 09-17-2022 Protein (U) [Mass/Vol] Trace mg/dL Negative [facility] Protein [Mass/volume] in Ser um or PlasmaOrdered By: Indy Rolon on 09-17-2022 Protein [Mass/Vol] 6.3 g/dL 6.1-7.9 [facility] RBC Auto (Bld) [#/Vol]Ordere d By: Indy Rolon on 09-17-2022 RBC (Bld) [#/Vol] 4.80 10*6/uL 3.60-5.00 [facility] Serum or plasma alanine mahmood otransferase measurement without P-5'-P (enzymatic activiOrdered By: Indy Rolon on 09-17-2022 ALT No additional P-5'-P [Catalytic activity/Vol] 20 U/L 10-60 [facility] Serum or plasma albumin/glob ulin mass ratioOrdered By: Indy Rolon on 09-17-2022 Albumin/Globulin [Mass ratio] 1.9 {ratio} [facility] Serum or plasma alkaline mia sphatase measurement (enzymatic activity/volume)Ordered By: Indy Rolon on 09-17-2022 ALP [Catalytic activity/Vol] 79 U/L 32-92 [facility] Serum or plasma anion gap de terminationOrdered By: Indy Rolon on 09-17-2022 Anion gap [Moles/Vol] 14.2 mmol/L 6.0-15.0 [facility] Serum or plasma aspartate am inotransferase measurement (enzymatic activity/volume)Ordered By: Indy Rolon on 09-17-2022 AST [Catalytic activity/Vol] 28 U/L 10-42 [facility] Serum or plasma calcium mitch urement (mass/volume)Ordered By: Indy Rolon on 09-17-2022 Calcium [Mass/Vol] 9.4 mg/dL 8.2-10.2 [facility] Serum or plasma chloride carlitos surement (moles/volume)Ordered By: Indy Rolon on 09-17-2022 Chloride [Moles/Vol] 103 mmol/L 95-114 [facility] Serum or plasma glucose mitch urement (mass/volume)Ordered By: Indy Rolon on 09-17-2022 Glucose [Mass/Vol] 94 mg/dL 70-100 [facility] Comment on above: ADA recommended refe rence rangeRandom Glucose Reference Range is dependent on time and content of last meal. Glucose of more than 200 mg/dL in a nonstressed, ambulatory subject supports the diagnosis of Diabetes Mellitus. Serum or plasma potassium me asurement (moles/volume)Ordered By: Indy Rolon on 09-17-2022 Potassium [Moles/Vol] 4.7 mmol/L 3.5-5.1 [facility] Serum or plasma sodium measu rement (moles/volume)Ordered By: Indy Rolon on 09-17-2022 Sodium [Moles/Vol] 138 mmol/L 136-146 [facility] Serum or plasma total biliru bin measurement (mass/volume)Ordered By: Indy Rolon on 09-17-2022 Bilirubin [Mass/Vol] 1.1 mg/dL 0.3-1.2 [facility] Serum or plasma total carbon dioxide measurement (moles/volume)Ordered By: Indy Rolon on 09-17-2022 CO2 [Moles/Vol] 25.5 mmol/L 22.0-30.0 [facility] Serum or plasma urea nitroge n measurement (mass/volume)Ordered By: Indy Rolon on 09-17-2022 Urea nitrogen [Mass/Vol] 24 mg/dL 9-23 [facility] Specific gravity Auto test s trip (U) [Rel density]Ordered By: Indy Rolon on 09-17-2022 Specific gravity (U) [Rel density] 1.024 1.001-1.03 0 [facility] Squamous epithelial cells de tection in urine sediment by light microscopyOrdered By: Indy Rolon on 09-17-2022 Epithelial cells.squamous LM Ql (Urine sed) 10-19 [HPF] 0-2 [facility] Troponin I.cardiac [Mass/vol ume] in Serum or Plasma by High sensitivity methodOrdered By: Indy Rolon on 09-17-2022 Troponin I.cardiac High sensitivity method [Mass/Vol] 8 pg/mL 0-15 [facility] Urine bacteria detection by automated methodOrdered By: Indy Rolon on 09-17-2022 Bacteria Auto Ql (U) 3+ None Seen [facility] Urine clarity by refractomet ry automatedOrdered By: Indy Rolon on 09-17-2022 Clarity Refractometry automated (U) Cloudy Clear [facility] Urine culture routineOrdered By: Indy Rolon on 09-17-2022 Bacteria identified Cx Nom (U) Escherichia coli [facility] Bacteria identified Cx Nom (U) Escherichia coli [facility] Urine glucose measurement by automated test strip (mass/volume)Ordered By: Indy Rolon on 09-17-2022 Glucose Auto test strip (U) [Mass/Vol] Normal mg/dL Normal [facility] Urine hemoglobin detection b y automated test stripOrdered By: Indy Rolon on 09-17-2022 Hemoglobin Auto test strip Ql (U) Trace Negative [facility] Urine leukocyte esterase det ection by automated test stripOrdered By: Indy Rolon on 09-17-2022 Leukocyte esterase Auto test strip Ql (U) 3+ Negative [facility] Urobilinogen Auto test strip (U) [Mass/Vol]Ordered By: Indy Rolon on 09-17-2022 Urobilinogen (U) [Mass/Vol] Normal mg/dL Normal [facility] WBC Auto (Bld) [#/Vol]Ordere d By: Indy Rolon on 09-17-2022 WBC (Bld) [#/Vol] 8.0 10*3/uL 3.8-11.6 [facility] Yeast detection in urine sed iment by light microscopyOrdered By: Indy Rolon on 09-17-2022 Yeast LM Ql (Urine sed) Rare [HPF] None Seen [facility] pH Auto test strip (U)Ordere d By: Indy Rolon on 09-17-2022 pH (U) 5.5 [pH] 5.0-9.0 [facility] Basophils Auto (Bld) [#/Vol] Ordered By: Jay Ceja on 09-05-2022 Basophils (Bld) [#/Vol] 0.0 10*3/uL 0.0-0.2 [facility] Basophils/100 WBC Auto (Bld) Ordered By: Jay Ceja on 09-05-2022 Basophils/100 WBC (Bld) 0.9 % . [facility] Creatinine and Glomerular fi ltration rate.predicted panel (S/P/Bld)Ordered By: Jay Ceja on 09-05-2022 Creatinine [Mass/Vol] 1.57 mg/dL 0.44-1.03 [facility] Eosinophils Auto (Bld) [#/Vo l]Ordered By: Jay Ceja on 09-05-2022 Eosinophils (Bld) [#/Vol] 0.3 10*3/uL 0.0-0.45 [facility] Eosinophils/100 WBC Auto (Bl d)Ordered By: Jay Ceja on 09-05-2022 Eosinophils/100 WBC (Bld) 4.7 % . [facility] Erythrocyte distribution wid th Auto (RBC) [Ratio]Ordered By: Jay Ceja on 09-05-2022 Erythrocyte distribution width (RBC) [Ratio] 13.8 % 11.9-15.3 [facility] Estimated glomerular filtrat ion rate (GFR) non- AmericanOrdered By: Jay Ceja on 09-05-2022 GFR/1.73 sq M.predicted among non-blacks MDRD (S/P/Bld) [Vol rate/Area] 32 mL/Min [facility] Hematocrit Auto (Bld) [Volum e fraction]Ordered By: Jay Ceja on 09-05-2022 Hematocrit (Bld) [Volume fraction] 42.4 % 34.0-46.4 [facility] Hemoglobin [Mass/volume] in BloodOrdered By: Jay Ceja on 09-05-2022 Hemoglobin (Bld) [Mass/Vol] 14.0 g/dL 11.8-15.4 [facility] Leukocytes [#/volume] correc anne marie for nucleated erythrocytes in Blood by Automated counOrdered By: Jay Ceja on 09-05-2022 WBC corrected for nucl RBC Auto (Bld) [#/Vol] 5.6 10*3/uL 3.8-11.6 [facility] Lymphocytes Auto (Bld) [#/Vo l]Ordered By: Jay Ceja on 09-05-2022 Lymphocytes (Bld) [#/Vol] 1.4 10*3/uL 1.00-4.8 [facility] Lymphocytes/100 WBC Auto (Bl d)Ordered By: Jay Ceja on 09-05-2022 Lymphocytes/100 WBC (Bld) 25.6 % . [facility] MCH Auto (RBC) [Entitic mass ]Ordered By: Jay Ceja on 09-05-2022 MCH (RBC) [Entitic mass] 29.7 pg 24.7-34.3 [facility] MCHC Auto (RBC) [Mass/Vol]Or dered By: Jay Ceja on 09-05-2022 MCHC (RBC) [Mass/Vol] 32.9 g/dL 32.0-35.0 [facility] MCV Auto (RBC) [Entitic vol] Ordered By: Jay Ceja on 09-05-2022 MCV (RBC) [Entitic vol] 90.2 fL 80-100 [facility] Monocytes Auto (Bld) [#/Vol] Ordered By: Jay Ceja on 09-05-2022 Monocytes (Bld) [#/Vol] 0.5 10*3/uL 0.0-0.8 [facility] Monocytes/100 WBC Auto (Bld) Ordered By: Jay Ceja on 09-05-2022 Monocytes/100 WBC (Bld) 9.7 % . [facility] Neutrophils Auto (Bld) [#/Vo l]Ordered By: Jay Ceja on 09-05-2022 Neutrophils (Bld) [#/Vol] 3.3 10*3/uL 1.8-7.7 [facility] Neutrophils/100 WBC Auto (Bl d)Ordered By: Jay Ceja on 09-05-2022 Neutrophils/100 WBC (Bld) 59.1 % . [facility] No Panel InformationOrdered By: Jay Ceja on 09-05-2022 Estimated GFR () 38 mL/Min [facility] Comment on above: GFR estimated refere nce range: According to KDOQI guidelines, <60 ml/min/1.73m2 is sufficient to diagnose a patient with chronic kidney disease. Pharmacy Creatinine Clearance (Chem 24.80 [facility] Nucleated erythrocytes [Pres ence] in Blood by Automated countOrdered By: Jay Ceja on 09-05-2022 Nucleated RBC Auto Ql (Bld) 0.2 /100{WBC} 0-0.5 [facility] Platelet mean volume Auto (B ld) [Entitic vol]Ordered By: Jay Ceja on 09-05-2022 Platelet mean volume (Bld) [Entitic vol] 9.2 fL 6.3-10.7 [facility] Platelets Auto (Bld) [#/Vol] Ordered By: Jay Ceja on 09-05-2022 Platelets (Bld) [#/Vol] 190 10*3/uL 150-450 [facility] RBC Auto (Bld) [#/Vol]Ordere d By: Jay Ceja on 09-05-2022 RBC (Bld) [#/Vol] 4.70 10*6/uL 3.60-5.00 [facility] Serum or plasma anion gap de terminationOrdered By: Jay Ceja on 09-05-2022 Anion gap [Moles/Vol] 11.5 mmol/L 6.0-15.0 [facility] Serum or plasma calcium mitch urement (mass/volume)Ordered By: Jay Ceja on 09-05-2022 Calcium [Mass/Vol] 8.9 mg/dL 8.2-10.2 [facility] Serum or plasma chloride carlitos surement (moles/volume)Ordered By: Jay Ceja on 09-05-2022 Chloride [Moles/Vol] 105 mmol/L 95-114 [facility] Serum or plasma glucose mitch urement (mass/volume)Ordered By: Jay Ceja on 09-05-2022 Glucose [Mass/Vol] 103 mg/dL 70-100 [facility] Comment on above: ADA recommended refe rence rangeRandom Glucose Reference Range is dependent on time and content of last meal. Glucose of more than 200 mg/dL in a nonstressed, ambulatory subject supports the diagnosis of Diabetes Mellitus. Serum or plasma potassium me asurement (moles/volume)Ordered By: Jay Ceja on 09-05-2022 Potassium [Moles/Vol] 4.0 mmol/L 3.5-5.1 [facility] Serum or plasma sodium measu rement (moles/volume)Ordered By: Jay Ceja on 09-05-2022 Sodium [Moles/Vol] 140 mmol/L 136-146 [facility] Serum or plasma total carbon dioxide measurement (moles/volume)Ordered By: Jay Ceja on 09-05-2022 CO2 [Moles/Vol] 27.5 mmol/L 22.0-30.0 [facility] Serum or plasma urea nitroge n measurement (mass/volume)Ordered By: Jay Ceja on 09-05-2022 Urea nitrogen [Mass/Vol] 29 mg/dL 9-23 [facility] WBC Auto (Bld) [#/Vol]Ordere d By: Jay Ceja on 09-05-2022 WBC (Bld) [#/Vol] 5.6 10*3/uL 3.8-11.6 [facility] Glucose mean value [Mass/vol ume] in Blood Estimated from glycated hemoglobinOrdered By: Jay Ceja on 09-02-2022 Average glucose Estimated from glycated hemoglobin (Bld) [Mass/Vol] 117 mg/dL [facility] Hemoglobin A1c percentageOrd ered By: Jay Ceja on 09-02-2022 HbA1c (Bld) [Mass fraction] 5.7 % 4.3-5.6 [facility] Comment on above: Increased risk for d iabetes: 5.7 - 6.4diabetes: >6.4glycemic control for adults with diabetes: <7.0 Laboratory - Chemistry and C hemistry - challengeOrdered By: Jay Ceja on 09-02-2022 Magnesium [Mass/Vol] 1.8 mg/dL 1.6-2.6 [facility] Natriuretic peptide B (Bld) [Mass/Vol] 307.0 pg/mL 5-100 [facility] TSH DL <= 0.005 mIU/L QnOrde red By: Jay Ceja on 09-02-2022 TSH Qn 3.39 m[IU]/L 0.45-5.33 [facility] Troponin I.cardiac [Mass/vol ume] in Serum or Plasma by High sensitivity methodOrdered By: Jay Ceja on 09-02-2022 Troponin I.cardiac High sensitivity method [Mass/Vol] 6 pg/mL 0-15 [facility] Albumin [Mass/volume] in Ser um or PlasmaOrdered By: Luis Lennon on 09-01-2022 Albumin [Mass/Vol] 3.7 g/dL 3.2-5.5 [facility] Automated erythrocytes count in urine sediment (number/area)Ordered By: Luis Lennon on 09-01-2022 RBC Auto (Urine sed) [#/Area] 3-4 [HPF] 0-4 [facility] Automated leukocytes count i n urine sediment (number/area)Ordered By: Luis Lennon on 09-01-2022 WBC Auto (Urine sed) [#/Area] 5-9 [HPF] 0-4 [facility] Basophils Auto (Bld) [#/Vol] Ordered By: Luis Lennon on 09-01-2022 Basophils (Bld) [#/Vol] 0.1 10*3/uL 0.0-0.2 [facility] Basophils/100 WBC Auto (Bld) Ordered By: Luis Lennon on 09-01-2022 Basophils/100 WBC (Bld) 0.8 % . [facility] Bilirubin Test strip Ql (U)O rdered By: Luis Lennon on 09-01-2022 Bilirubin Ql (U) Negative Negative [facility] Color Auto (U)Ordered By: Robert Lennon on 09-01-2022 Color (U) Dark yellow Yellow [facility] Creatinine and Glomerular fi ltration rate.predicted panel (S/P/Bld)Ordered By: Luis Lennon on 09-01-2022 Creatinine [Mass/Vol] 1.14 mg/dL 0.44-1.03 [facility] Eosinophils Auto (Bld) [#/Vo l]Ordered By: Luis Lennon on 09-01-2022 Eosinophils (Bld) [#/Vol] 0.3 10*3/uL 0.0-0.45 [facility] Eosinophils/100 WBC Auto (Bl d)Ordered By: Luis Lennon on 09-01-2022 Eosinophils/100 WBC (Bld) 4.1 % . [facility] Erythrocyte distribution wid th Auto (RBC) [Ratio]Ordered By: Luis Lennon on 09-01-2022 Erythrocyte distribution width (RBC) [Ratio] 14.3 % 11.9-15.3 [facility] Estimated glomerular filtrat ion rate (GFR) non- AmericanOrdered By: Luis Lennon on 09-01-2022 GFR/1.73 sq M.predicted among non-blacks MDRD (S/P/Bld) [Vol rate/Area] 46 mL/Min [facility] Globulin Calc (S) [Mass/Vol] Ordered By: Luis Lennon on 09-01-2022 Globulin (S) [Mass/Vol] 2.2 g/dL [facility] Hematocrit Auto (Bld) [Volum e fraction]Ordered By: Luis Lennon on 09-01-2022 Hematocrit (Bld) [Volume fraction] 43.4 % 34.0-46.4 [facility] Hemoglobin [Mass/volume] in BloodOrdered By: Luis Lennon on 09-01-2022 Hemoglobin (Bld) [Mass/Vol] 13.9 g/dL 11.8-15.4 [facility] Ketones Auto test strip (U) [Mass/Vol]Ordered By: Luis Lennon on 09-01-2022 Ketones (U) [Mass/Vol] Trace Negative [facility] Laboratory - Chemistry and C hemistry - challengeOrdered By: Luis Lennon on 09-01-2022 Natriuretic peptide B (Bld) [Mass/Vol] 445.0 pg/mL 5-100 [facility] Laboratory - UrinalysisOrder ed By: Luis Lennon on 09-01-2022 Hyaline casts LM Ql (Urine sed) 0-8 [LPF] 0-8 [facility] Leukocytes [#/volume] correc anne marie for nucleated erythrocytes in Blood by Automated counOrdered By: Luis Lennon on 09-01-2022 WBC corrected for nucl RBC Auto (Bld) [#/Vol] 8.1 10*3/uL 3.8-11.6 [facility] Lymphocytes Auto (Bld) [#/Vo l]Ordered By: Luis Lennon on 09-01-2022 Lymphocytes (Bld) [#/Vol] 1.1 10*3/uL 1.00-4.8 [facility] Lymphocytes/100 WBC Auto (Bl d)Ordered By: Luis Lennon on 09-01-2022 Lymphocytes/100 WBC (Bld) 13.9 % . [facility] MCH Auto (RBC) [Entitic mass ]Ordered By: Luis Lennon on 09-01-2022 MCH (RBC) [Entitic mass] 29.3 pg 24.7-34.3 [facility] MCHC Auto (RBC) [Mass/Vol]Or dered By: Luis Lennon on 09-01-2022 MCHC (RBC) [Mass/Vol] 32.0 g/dL 32.0-35.0 [facility] MCV Auto (RBC) [Entitic vol] Ordered By: Luis Lennon on 09-01-2022 MCV (RBC) [Entitic vol] 91.4 fL 80-100 [facility] Monocyte distribution width [Entitic volume] in Blood by AutomatedOrdered By: Luis Lennon on 09-01-2022 Monocyte distribution width Auto (Bld) [Entitic vol] 16.84 % 0.00-20.00 [facility] Monocytes Auto (Bld) [#/Vol] Ordered By: Luis Lennon on 09-01-2022 Monocytes (Bld) [#/Vol] 0.6 10*3/uL 0.0-0.8 [facility] Monocytes/100 WBC Auto (Bld) Ordered By: uLis Lennon on 09-01-2022 Monocytes/100 WBC (Bld) 7.5 % . [facility] Neutrophils Auto (Bld) [#/Vo l]Ordered By: Luis Lennon on 09-01-2022 Neutrophils (Bld) [#/Vol] 5.9 10*3/uL 1.8-7.7 [facility] Neutrophils/100 WBC Auto (Bl d)Ordered By: Luis Lennon on 09-01-2022 Neutrophils/100 WBC (Bld) 73.7 % . [facility] Nitrite Test strip Ql (U)Ord ered By: Luis Lennon on 09-01-2022 Nitrite Ql (U) Negative Negative [facility] No Panel InformationOrdered By: Luis Lennon on 09-01-2022 Estimated GFR () 56 mL/Min [facility] Comment on above: GFR estimated refere nce range: According to KDOQI guidelines, <60 ml/min/1.73m2 is sufficient to diagnose a patient with chronic kidney disease. Pharmacy Creatinine Clearance (Chem 35.69 [facility] Nucleated erythrocytes [Pres ence] in Blood by Automated countOrdered By: Luis Lennon on 09-01-2022 Nucleated RBC Auto Ql (Bld) 0.1 /100{WBC} 0-0.5 [facility] Platelet mean volume Auto (B ld) [Entitic vol]Ordered By: Luis Lennon on 09-01-2022 Platelet mean volume (Bld) [Entitic vol] 9.1 fL 6.3-10.7 [facility] Platelets Auto (Bld) [#/Vol] Ordered By: Luis Lennon on 09-01-2022 Platelets (Bld) [#/Vol] 208 10*3/uL 150-450 [facility] Protein Auto test strip (U) [Mass/Vol]Ordered By: Luis Lennon on 09-01-2022 Protein (U) [Mass/Vol] 30 mg/dL Negative [facility] Protein [Mass/volume] in Ser um or PlasmaOrdered By: Luis Lennon on 09-01-2022 Protein [Mass/Vol] 5.9 g/dL 6.1-7.9 [facility] RBC Auto (Bld) [#/Vol]Ordere d By: Luis Lennon on 09-01-2022 RBC (Bld) [#/Vol] 4.74 10*6/uL 3.60-5.00 [facility] Serum or plasma alanine mahmood otransferase measurement without P-5'-P (enzymatic activiOrdered By: Luis Lennon on 09-01-2022 ALT No additional P-5'-P [Catalytic activity/Vol] 33 U/L 10-60 [facility] Serum or plasma albumin/glob ulin mass ratioOrdered By: Luis Lennon on 09-01-2022 Albumin/Globulin [Mass ratio] 1.7 {ratio} [facility] Serum or plasma alkaline mia sphatase measurement (enzymatic activity/volume)Ordered By: Luis Lennon on 09-01-2022 ALP [Catalytic activity/Vol] 70 U/L 32-92 [facility] Serum or plasma anion gap de terminationOrdered By: Luis Lennon on 09-01-2022 Anion gap [Moles/Vol] 9.3 mmol/L 6.0-15.0 [facility] Serum or plasma aspartate am inotransferase measurement (enzymatic activity/volume)Ordered By: Luis Lennon on 09-01-2022 AST [Catalytic activity/Vol] 33 U/L 10-42 [facility] Serum or plasma calcium mitch urement (mass/volume)Ordered By: Luis Lennon on 09-01-2022 Calcium [Mass/Vol] 9.0 mg/dL 8.2-10.2 [facility] Serum or plasma chloride carlitos surement (moles/volume)Ordered By: Luis Lennon on 09-01-2022 Chloride [Moles/Vol] 109 mmol/L 95-114 [facility] Serum or plasma glucose mitch urement (mass/volume)Ordered By: Luis Lennon on 09-01-2022 Glucose [Mass/Vol] 95 mg/dL 70-100 [facility] Comment on above: ADA recommended refe rence rangeRandom Glucose Reference Range is dependent on time and content of last meal. Glucose of more than 200 mg/dL in a nonstressed, ambulatory subject supports the diagnosis of Diabetes Mellitus. Serum or plasma potassium me asurement (moles/volume)Ordered By: Luis Lennon on 09-01-2022 Potassium [Moles/Vol] 4.2 mmol/L 3.5-5.1 [facility] Serum or plasma sodium measu rement (moles/volume)Ordered By: Luis Lennon on 09-01-2022 Sodium [Moles/Vol] 138 mmol/L 136-146 [facility] Serum or plasma total biliru bin measurement (mass/volume)Ordered By: Luis Lennon on 09-01-2022 Bilirubin [Mass/Vol] 1.3 mg/dL 0.3-1.2 [facility] Comment on above: Samples from patient s who have taken Naproxen have shown spurious elevation in Total Bilirubin levels. A metabolite of Naproxen, O-desmethylnaproxen, has been shown to interfere with the Jendrassik-Grof method for measuring Total Bilirubin. Serum or plasma total carbon dioxide measurement (moles/volume)Ordered By: Luis Lennon on 09-01-2022 CO2 [Moles/Vol] 23.9 mmol/L 22.0-30.0 [facility] Serum or plasma urea nitroge n measurement (mass/volume)Ordered By: Luis Lennon on 09-01-2022 Urea nitrogen [Mass/Vol] 23 mg/dL 9- [facility] Specific gravity Auto test s trip (U) [Rel density]Ordered By: Luis Lennon on 09-01-2022 Specific gravity (U) [Rel density] 1.022 1.001-1.03 0 [facility] Squamous epithelial cells de tection in urine sediment by light microscopyOrdered By: Luis Lennon on 09-01-2022 Epithelial cells.squamous LM Ql (Urine sed) 5-9 [HPF] 0-2 [facility] Troponin I.cardiac [Mass/vol ume] in Serum or Plasma by High sensitivity methodOrdered By: Luis Lennon on 09-01-2022 Troponin I.cardiac High sensitivity method [Mass/Vol] 7 pg/mL 0-15 [facility] Urine bacteria detection by automated methodOrdered By: Luis Lennon on 09-01-2022 Bacteria Auto Ql (U) None seen None Seen [facility] Urine clarity by refractomet ry automatedOrdered By: Luis Lennon on 09-01-2022 Clarity Refractometry automated (U) Clear Clear [facility] Urine culture routineOrdered By: Luis Lennon on 09-01-2022 Bacteria identified Cx Nom (U) 2 Days [facility] Bacteria identified Cx Nom (U) 2 Days [facility] Urine glucose measurement by automated test strip (mass/volume)Ordered By: Luis Lennon on 09-01-2022 Glucose Auto test strip (U) [Mass/Vol] Normal mg/dL Normal [facility] Urine hemoglobin detection b y automated test stripOrdered By: Luis Lennon on 09-01-2022 Hemoglobin Auto test strip Ql (U) Negative Negative [facility] Urine leukocyte esterase det ection by automated test stripOrdered By: Luis Lennon on 09-01-2022 Leukocyte esterase Auto test strip Ql (U) 2+ Negative [facility] Urobilinogen Auto test strip (U) [Mass/Vol]Ordered By: Luis Lennon on 09-01-2022 Urobilinogen (U) [Mass/Vol] Normal mg/dL Normal [facility] WBC Auto (Bld) [#/Vol]Ordere d By: Luis Lennon on 09-01-2022 WBC (Bld) [#/Vol] 8.1 10*3/uL 3.8-11.6 [facility] pH Auto test strip (U)Ordere d By: Luis Lennon on 09-01-2022 pH (U) 5.5 [pH] 5.0-9.0 [facility] Office Visit (Cardiology)on 06-26-2022 Follow-up visit [...] in 6 months with EKG Chief Complaint AUSTIN GOLDEN is being seen for a 4-5 [...] Signs Recorded: [id number] 02:26PM Heart Rate71, Apical [id number], LUE, Sitting [id number], LUE, Sitting Height4 ft 11 in Ggfdyu165 lb BMI Ftfifrnfzd41.92 kg/m2 BSA Calculated1.69 Tobacco Useb) No Falls Screening (Age 18+)a) No falls within the last year EKG COMPLETED IN OFFICE Physical Exam Constitutional: alert and in no acute distress. Neck: neck is supple, symmetric, trachea midline, no masses and no thyromegaly . Pulmonary: no increased work of breathing or signs of respiratory distress (more content not included)... Normal [employer] Tobacco Screening.on 022 Fall risk assessment a) No falls within the last year [facility] [employer] [facility] [employer] [place] [address] DO Work Phone: Tobacco use status [facility] b) No [facility] [place] [address] DO Work Phone: [place] GASTRIC EMPTYon [...] FARRAH LOGAN Date: 2022-05-12 12:48 Normal [facility] Covid-19 PCR ([facility])on SARS-CoV-2 (COVID-19) RNA GUILLERMO+probe Ql (Unsp spec) Not detected Normal NOT DETECTED [facility] Comment on above: Result Comment: This test is not yet approved or cleared by the [place] FDA. When there are no FDA-approved or cleared tests available, and other criteria are met, FDA can make tests available under an emergency access mechanism called an Emergency Use Authorization (EUA). The EUA for this test is supported by the [place] of Health and Human Service's (HHS's) declaration [...] consistent with SARS-CoV-2. Performed By: #### C [facility] #### [facility] [address] [place] [address] Dr. Lori Sutton Office Visit (Cardiology)on 03-10-2022 [...] Weight Tips; Status:Complete - Retrospective Authorization; Done: [id number] Some eating tips that can help you lose weight.; Status:Complete - Retrospective Authorization; Done: [id number] Persistent atrial fibrillation IO EKG Electrocardiogram- 12 Lead; Status:Complete; Done: [id number] SocHx: Never a smoker Tobacco Use Screening; Status:Complete; Done: [id number] Patient Instructions Please bring all medicines, vitamins, [...] Follow up in 4-5 months + EKG INely LPN, am scribing for and in the presence of, Dr. Debbie Mac MD Chief Complaint AUSTIN GOLDEN is being seen for a 4 [...] the above has been addressed by her mill representative Dr. Mota. She reports she underwent esophageal [...] stent which was removed recently by Dr. Aflonso 4. Hypertension controlled 5. Hyperlipidemia 6. Borderline [...] tired. Cardiovascular: (more content not included)... Normal [employer] Tobacco Screening.on 022 Fall risk assessment a) No falls within the last year -[facility] [place] [address] [place] Work Phone: Tobacco use status [facility] b) No -[facility] [place] [address] [place] Work Phone: Albumin [Mass/volume] in Ser um or PlasmaOrdered By: John Mims on 03-09-2022 Albumin [Mass/Vol] 3.7 g/dL 3.2-5.5 [facility] Basophils Auto (Bld) [#/Vol] Ordered By: John Mims on 03-09-2022 Basophils (Bld) [#/Vol] 0.0 10*3/uL 0.0-0.2 [facility] Basophils/100 WBC Auto (Bld) Ordered By: John Mims on 03-09-2022 Basophils/100 WBC (Bld) 0.7 % . [facility] Blood hemoglobin measurement (mass/volume)Ordered By: John Mims on 03-09-2022 Hemoglobin (Bld) [Mass/Vol] 13.7 g/dL 11.8-15.4 [facility] Blood leukocytes automated c ount (number/volume)Ordered By: John Mims on 03-09-2022 WBC (Bld) [#/Vol] 6.2 10*3/uL 4.5-11.0 [facility] Creatinine and Glomerular fi ltration rate.predicted panel (S/P/Bld)Ordered By: John Mims on 03-09-2022 Creatinine [Mass/Vol] 1.10 mg/dL 0.44-1.03 [facility] Eosinophils Auto (Bld) [#/Vo l]Ordered By: John Mims on 03-09-2022 Eosinophils (Bld) [#/Vol] 0.3 10*3/uL 0.0-0.45 [facility] Eosinophils/100 WBC Auto (Bl d)Ordered By: John Mims on 03-09-2022 Eosinophils/100 WBC (Bld) 4.2 % . [facility] Erythrocyte distribution wid th Auto (RBC) [Ratio]Ordered By: John Mims on 03-09-2022 Erythrocyte distribution width (RBC) [Ratio] 13.3 % 11.9-15.3 [facility] Estimated glomerular filtrat ion rate (GFR) non- AmericanOrdered By: John Mims on 03-09-2022 GFR/1.73 sq M.predicted among non-blacks MDRD (S/P/Bld) [Vol rate/Area] 48 mL/Min [facility] Globulin Calc (S) [Mass/Vol] Ordered By: John Mims on 03-09-2022 Globulin (S) [Mass/Vol] 2.6 g/dL [facility] Hematocrit Auto (Bld) [Volum e fraction]Ordered By: John Mims on 03-09-2022 Hematocrit (Bld) [Volume fraction] 40.9 % 34.0-46.4 [facility] Laboratory - CoagulationOrde red By: John Mims on 03-09-2022 PT Coag (PPP) [Time] 17.6 s 9.0-12.9 [facility] - Hematology and Cell countsOrdered By: John Mims on 03-09-2022 Nucleated RBC/100 WBC (Bld) [Ratio] 0.0 % 0-0.5 [facility] Lymphocytes Auto (Bld) [#/Vo l]Ordered By: John Mims on 03-09-2022 Lymphocytes (Bld) [#/Vol] 1.1 10*3/uL 1.00-4.8 [facility] Lymphocytes/100 WBC Auto (Bl d)Ordered By: John Mims on 03-09-2022 Lymphocytes/100 WBC (Bld) 17.2 % . [facility] MCH Auto (RBC) [Entitic mass ]Ordered By: John Mims on 03-09-2022 MCH (RBC) [Entitic mass] 30.8 pg 24.7-34.3 [facility] MCHC Auto (RBC) [Mass/Vol]Or dered By: John Mims on 03-09-2022 MCHC (RBC) [Mass/Vol] 33.4 g/dL 32.0-35.0 [facility] MCV Auto (RBC) [Entitic vol] Ordered By: John Mims on 03-09-2022 MCV (RBC) [Entitic vol] 92.2 fL 80-100 [facility] Monocyte %Ordered By: Letty Mims on 03-09-2022 Monocyte % 24 umol/L 11-35 [facility] Monocytes Auto (Bld) [#/Vol] Ordered By: John Mims on 03-09-2022 Monocytes (Bld) [#/Vol] 0.5 10*3/uL 0.0-0.8 [facility] Monocytes/100 WBC Auto (Bld) Ordered By: John Mims on 03-09-2022 Monocytes/100 WBC (Bld) 7.4 % . [facility] Neutrophils Auto (Bld) [#/Vo l]Ordered By: John Mims on 03-09-2022 Neutrophils (Bld) [#/Vol] 4.4 10*3/uL 1.8-7.7 [facility] Neutrophils/100 WBC Auto (Bl d)Ordered By: John Mims on 03-09-2022 Neutrophils/100 WBC (Bld) 70.5 % . [facility] No Panel InformationOrdered By: John Mims on 03-09-2022 Estimated GFR () 58 mL/Min [facility] Comment on above: GFR estimated refere nce range: According to KDOQI guidelines, <60 ml/min/1.73m2 is sufficient to diagnose a patient with chronic kidney disease. Pharmacy Creatinine Clearance (Chem N/A [facility] Platelet mean volume Auto (B ld) [Entitic vol]Ordered By: John Mims on 03-09-2022 Platelet mean volume (Bld) [Entitic vol] 8.5 fL 6.3-10.7 [facility] Platelet poor plasma interna tional normalized ratio (INR) by coagulation assay (relatOrdered By: John Mims on 03-09-2022 INR Coag (PPP) [Relative time] 1.6 {INR} [facility] Comment on above: INR Therapeutic Rang [...] 03-09-2022 Platelets (Bld) [#/Vol] 213 10*3/uL 150-450 [facility] Protein [Mass/volume] in Ser um or PlasmaOrdered By: John Mims on 03-09-2022 Protein [Mass/Vol] 6.3 g/dL 6.1-7.9 [facility] RBC Auto (Bld) [#/Vol]Ordere d By: John Mims on 03-09-2022 RBC (Bld) [#/Vol] 4.44 10*6/uL 3.60-5.00 [facility] Serum or plasma alanine mahmood otransferase measurement without P-5'-P (enzymatic activiOrdered By: John Mims on 03-09-2022 ALT No additional P-5'-P [Catalytic activity/Vol] 23 U/L 10-60 [facility] Serum or plasma albumin/glob ulin mass ratioOrdered By: John Mims on 03-09-2022 Albumin/Globulin [Mass ratio] 1.4 {ratio} [facility] Serum or plasma alkaline mia sphatase measurement (enzymatic activity/volume)Ordered By: John Mims on 03-09-2022 ALP [Catalytic activity/Vol] 98 U/L 32-92 [facility] Serum or plasma aspartate am inotransferase measurement (enzymatic activity/volume)Ordered By: John Mims on 03-09-2022 AST [Catalytic activity/Vol] 27 U/L 10-42 [facility] Serum or plasma calcium mitch urement (mass/volume)Ordered By: John Mims on 03-09-2022 Calcium [Mass/Vol] 9.3 mg/dL 8.2-10.2 [facility] Serum or plasma chloride carlitos surement (moles/volume)Ordered By: John Mims on 03-09-2022 Chloride [Moles/Vol] 106 mmol/L 95-114 [facility] Serum or plasma glucose mitch urement (mass/volume)Ordered By: John Mims on 03-09-2022 Glucose [Mass/Vol] 88 mg/dL 70-100 [facility] Comment on above: ADA recommended refe rence range Random Glucose Reference Range is dependent on time and content of last meal. Glucose of more than 200 mg/dL in a nonstressed, ambulatory subject supports the diagnosis of Diabetes Mellitus. Serum or plasma potassium me asurement (moles/volume)Ordered By: John Mims on 03-09-2022 Potassium [Moles/Vol] 4.6 mmol/L 3.5-5.1 [facility] Serum or plasma sodium measu rement (moles/volume)Ordered By: John Mims on 03-09-2022 Sodium [Moles/Vol] 139 mmol/L 136-146 [facility] Serum or plasma total biliru bin measurement (mass/volume)Ordered By: John Mims on 03-09-2022 Bilirubin [Mass/Vol] 0.9 mg/dL 0.3-1.2 [facility] Serum or plasma total carbon dioxide measurement (moles/volume)Ordered By: John Mims on 03-09-2022 CO2 [Moles/Vol] 23.9 mmol/L 22.0-30.0 [facility] Serum or plasma urea nitroge n measurement (mass/volume)Ordered By: John Mims on 03-09-2022 Urea nitrogen [Mass/Vol] 30 mg/dL 9-23 [facility] TSH DL <= 0.005 mIU/L QnOrde red By: John Mims on 03-09-2022 TSH Qn 1.70 m[IU]/L 0.45-5.33 [facility] Thyroxine (T4) free [Mass/vo lume] in Serum or PlasmaOrdered By: John Mims on 03-09-2022 Free T4 [Mass/Vol] 1.37 ng/dL 0.61-1.12 [facility] US SINGLE QUAD RT UPPERon US [...] HARDY LIRA Date: 2022-01-25 16:24 Normal [facility] BNPon 01-11-2022 Natriuretic peptide B (Bld) [Mass/Vol] 520.0 pg/mL Normal <=1,800.0 [facility] Comment on above: Performed By: #### B MP, TSH, BNP #### [facility] [address] [place], [place] [address] Dr. Lori Sutton CBC AUTO DIFFon 01-11-2022 BASO # 0.0 103/ul Normal 0.0-0.1 [facility] Comment on above: Performed By: #### C BC ####[facility] [address] [place] [id number]. Lori Sutton Basophils/100 WBC (Bld) 0.5 % Normal 0.2-2.0 [facility] Comment on above: Performed By: #### C BC ####[facility] [address] [place] [address]Dr. Lori Sutton EO # 0.3 103/ul Normal 0.0-0.7 [facility] Comment on above: Performed By: #### C BC ####[facility] [address] [place] [address]DrMelita Sutton Eosinophils/100 WBC (Bld) 3.9 % Normal 0.9-7.0 [facility] Comment on above: Performed By: #### C BC ####[facility] [address] [place] [address]Dr. Lori Sutton Erythrocyte distribution width (RBC) [Ratio] 14.4 % Normal 11.0-15.0 [facility] Comment on above: Performed By: #### C BC ####[facility] [address] [place], [place] [address]Dr. Lori Sutton Hematocrit (Bld) [Volume fraction] 42.0 % Normal 36.0-48.0 [facility] Comment on above: Performed By: #### C BC ####[facility] Wel[address] [place], [place] [address]Dr. Lori Sutton Hemoglobin (Bld) [Mass/Vol] 13.4 g/dL Normal 12.0-16.0 [facility] Comment on above: Performed By: #### C BC ####[facility] [address] [place], [place] [address]Dr. Lori Sutton IG # 0.04 10e3/ul Critically high 0.00-0.03 [facility] Comment on above: Performed By: #### C BC ####[facility] [address] [place], [place] [address]Dr. Lori Sutton IG % 0.5 % Normal 0.0-0.5 [facility] Comment on above: Performed By: #### C BC ####[facility] Z[address] [place], [place] [address]Dr. Lori Sutton LYMPH # 1.7 103/ul Normal 1.2-3.8 [facility] Comment on above: Performed By: #### C BC ####[facility] [address] [place], [place] [address]Dr. Lori Sutton Lymphocytes/100 WBC (Bld) 21.3 % Normal 20.5-60.0 [facility] Comment on above: Performed By: #### C BC ####[facility] K[address] [place], [place] [address]Dr. Lori Sutton MANUAL DIFF REQ NO Normal [facility] Comment on above: Performed By: #### C BC ####[facility] [address] [place] [address]Dr. Lori Sutton MCH (RBC) [Entitic mass] 30.6 pg Normal 26.7-34.0 [facility] Comment on above: Performed By: #### C BC ####[facility] [address] [place] [address]Dr. Lori Sutton MCHC (RBC) [Mass/Vol] 31.9 g/dL Normal 29.9-35.2 [facility] Comment on above: Performed By: #### C BC ####[facility] [address] [place] [address]Dr. Lori Herman MCV (RBC) [Entitic vol] 95.9 fL Normal 81.0-99.0 [facility] Comment on above: Performed By: #### C BC ####[facility] [address] [place], [place] [address]Dr. Lori Sutton MONO # 0.7 103/ul Normal 0.3-0.8 [facility] Comment on above: Performed By: #### C BC ####[facility] [address] [place], [place] [address]Dr. Estephaniaurbano Sutton Monocytes/100 WBC (Bld) 8.5 % Normal 1.7-12.0 [facility] Comment on above: Performed By: #### C BC ####[facility] C[address] [place], [place] [address]Dr. Lori Sutton NEUT # 5.2 103/ul Normal 1.4-6.5 [facility] Comment on above: Performed By: #### C BC ####[facility] [address] [place], [place] [address]Dr. Lori Sutton Neutrophils/100 WBC (Bld) 65.3 % Normal 43.0-75.0 [facility] Comment on above: Performed By: #### C BC ####[facility] [address] [place], [place] [address]Dr. Lori Sutton Platelet mean volume (Bld) [Entitic vol] 10.3 fL Normal 9.5-13.5 [facility] Comment on above: Performed By: #### C BC ####[facility] [address] [place], [place] [address]Xn. Lori Sutton PLT 230 103/ul Normal 150-450 [facility] Comment on above: Performed By: #### C BC ####[facility] [address] [place], [place] [address]Td. Lori Sutton RBC 4.38 106/ul Normal 4.20-5.40 [facility] Comment on above: Performed By: #### C BC ####[facility] [address] [place], [place] [address]Ao. Lori Sutton WBC 8.0 103/ul Normal 4.0-11.0 [facility] Comment on above: Performed By: #### C BC ####[facility] [address] [place], [place] [address]EnMelita Sutton PROF CHEM 8 (BAS METB)on Anion gap [Moles/Vol] 14.3 mmol/L Normal [facility] Comment on above: Performed By: #### B MP, TSH, BNP #### [facility] [address] [place] [address] [address] Lori Sutton Calcium [Mass/Vol] 8.8 mg/dL Normal 8.5-10.1 [facility] Comment on above: Performed By: #### B MP, TSH, BNP #### [facility] [address] [place] [address] [address] Lori Sutton Chloride [Moles/Vol] 103 mmol/L Normal 98-107 [facility] Comment on above: Performed By: #### B MP, TSH, BNP #### [facility] [address] [place] [address] [address] Lori Sutton CO2 [Moles/Vol] 27.5 mmol/L Normal 21.0-32.0 [facility] Comment on above: Performed By: #### B MP, TSH, BNP #### [facility] [address] [place] [address] [address] Lori Sutton Creatinine [Mass/Vol] 1.65 mg/dL Critically high 0.55-1.02 [facility] Comment on above: Performed By: #### B MP, TSH, BNP #### [facility] [address] [place] [address] Dr. Lori Sutton EGFR-AF SOUTH [place]OREAN 36 mL/min/1.73m2 Critically low >=60 [facility] Comment on above: Performed By: #### B MP, TSH, BNP #### [facility] [address] [place] [address] Dr. Lori Sutton EGFR-NON AF [place]OUTH [place]OREAN 30 mL/min/1.73m2 Critically low >=60 [facility] Comment on above: Performed By: #### B MP, TSH, BNP #### [facility] [address] [place] [address] Dr. Lori Sutton Glucose [Mass/Vol] 88 mg/dL Normal 74-106 [facility] Comment on above: Performed By: #### B MP, TSH, BNP #### [facility] [address] [place] [address] Dr. Lori Sutton Potassium [Moles/Vol] 4.8 mmol/L Normal 3.5-5.1 [facility] Comment on above: Performed By: #### B MP, TSH, BNP #### [facility] [address] [place] [address] Dr. Lori Sutton Sodium [Moles/Vol] 140 mmol/L Normal 136-145 [facility] Comment on above: Performed By: #### B MP, TSH, BNP #### [facility] [address] [place] [address] Dr. Lori Sutton Urea nitrogen [Mass/Vol] 46.0 mg/dL Critically high 7.0-18.0 [facility] Comment on above: Performed By: #### B MP, TSH, BNP #### [facility] [address] [place] [address] Dr. Lori Sutton Urea nitrogen/Creatinine [Mass ratio] 27.9 mg/mg Normal [facility] Comment on above: Performed By: #### B MP, TSH, BNP #### [facility] [address] [place] [address] Dr. Lori Sutton TSHon 01-11-2022 TSH 2.012 uIU/mL Normal 0.358-3.74 0 [facility] Comment on above: Performed By: #### B MP, TSH, BNP #### [facility] [address] [place] [address] [address] Lori Sutton TSH RANGE SEE BELOW Normal [facility] Comment on above: Result Comment: <0.3 4 UIU/ml HYPERTHYROID 0.34-5.60 UIU/ml EUTHYROID >5.60 UIU/ml HYPOTHYROID Performed By: #### B MP, TSH, BNP #### [facility] [address] [place] [address] [address] Lori Sutton XR CHEST 2 Von [...] MACARENA MEHTA Date: 2022-01-11 15:14 Normal [facility] COVID-19 Positive/NegativeOr dered By: John Mims on 12-30-2021 SARS-CoV-2 (COVID-19) N gene GUILLERMO+probe Ql (Resp) Negative Negative [facility] Comment on above: Testing for SARS-CoV -2 by RT-PCR This test was developed and its performance characteristics determined by [employer] and validated at the [facility]. This test has not been FDA [...] a) No falls within the last year [facility] [employer] 250 DO Work Phone: [phone] Tobacco use status CPHS b) No [facility] [employer] 250 DO Work Phone: [facility] Screening. [facility] Work Phone: RAD - CT Reporton 10-10-[address] RAD - CT Report [id number]#1.00CD:127 [facility] Tobacco Screening.on 021 Fall risk assessment b) One or more fall s in the last year [facility] Work Phone: Tobacco use status CPHS b) No [facility] [employer] 250 DO Work Phone: RAD - CT Reporton 07-24-2021 RAD - CT Report [id number]#1.00CD:127 [facility] Consent for Procedure/Surger yon 07-22-2021 Consent for Procedure/Surgery [id number]#1.00CD:127 [facility] Ambulatory Clinical Summaryo n 07-21-2021 Ambulatory Clinical Summary {[id number]}CD:61 [id number] [facility] Patient Educationon 07-21-20 Patient Education Urology [...] these instructions at home: Medicines ? Take gvjc-dzn-imtamvp and prescription medicines only as told by [...] 01/22/2009 Document Revised: 12/23/2019 Document Reviewed: 12/23/2019 Elsevier Patient Education ? 2019 [employer]. Yasemin Julien [facility] Urology Office/Clinic Noteon 07-21-2021 Urology Office/Clinic Note Chief Complaint Pt is here for a cysto/LT stent removal HPI Staff Austin is a 80 y.o. female new patient [...] was seen in consult at [facility]. CT done 06/27/2021 shows left [...] Follow-up With When Contact Information KARUNA MUIR, Byron Beltrán, URWolf In 6 months 01/19/2022 [address]T [address] [place] [address]- Additional Instructions: KUB Patient Education Kidney Stones, Nlvw-iv-Emsm Leonor Brown, personally scribed for Dr. Alfonso on 07/21/2021 [...] Tobacco Use:. Never Smokeless Tobacco Use:., 07/21/2021 [facility] Comment on above: Result Comment: Elec tronically Signed By: Byron ALFONSO MD\.br\Date and Time Signed: 07/21/21 15:17 EST\.br\Electronically Co-Signed By: Leonor Rucker.br\Date and Time Co-Signed: 07/21/21 15:12 EST Falls Risk Screeningon 07-06 Fall risk assessment a) No falls within the last year [facility] [address] DO Work Phone: Pathology Noteon 07-06-2021 Pathology Note [id number]#1.00CD:127 [facility] Operative Reporton Operative Report [id number]#1.00CD:127 [facility] RAD - MISCon 07-04-2021 RAD - MISC [id number]#1.00CD:127 Normal [facility] Insurance Correspondence Off iceon 07-01-2021 Insurance Correspondence Office [id number]#1.00CD:127 Normal [facility] Consultation Noteon 06-29-20 Consultation Note [id number]#1.00CD:127 Normal [facility] No Panel Informationon 06-24 [facility] [address] [place] Work Phone: 20.44\S\20.44 Normal [facility] [address] [place] Work Phone: Comment on above: PERFORMED BY:[place] [address] [place] [phone] MEDICAL DIRECTORVITOR ZARATE M.D. 9.0\S\9.0 Normal 8.2-10.2 [facility] [address] [place] Work Phone: [phone] 24.1\S\24.1 Normal 22.0-30.0 [facility] [address] [place] Work Phone: [phone] 103\S\103 Normal 95-114 [facility] [address] [place] Work Phone: [phone] 4.4\S\4.4 Normal 3.5-5.1 [facility] [address] [place] Work Phone: [phone] 138\S\138 Normal 136-146 [facility] [address] [place] Work Phone: [phone] 31\S\31 Normal [facility] [address] [place] Work Phone: Comment on above: GFR estimated refere nce range: According to KDOQI guidelines, <60 ml/min/1.73m2 is sufficient to diagnose a patient with chronic kidney disease. 26\S\26 Normal [facility] [address] [place] Work Phone: [phone] 1.88\S\1.88 above high threshold 0.44-1.03 [facility] [address] [place] Work Phone: \S\34 above high threshold 9-23 [facility] [address] [place] Work Phone: [phone] 130\S\130 above high threshold 70-100 [facility] [address] [place] Work Phone: [phone] Comment on above: Random Glucose Refer ence Range is dependent on time and content of last meal. Glucose of more than 200 mg/dL in a nonstressed, ambulatory subject supports the diagnosis of Diabetes Mellitus. ADA recommended reference range No Panel Informationon 06-23 3+ above high threshold Negative [facility] [address] [place] Work Phone: [phone] Negative Normal Negative [facility] [address] [place] Work Phone: [phone] Normal Normal Normal [facility] [address] [place] Work Phone: \S\30 above high threshold Negative [facility] [address] [place] Work Phone: [phone] None Seen Normal 0-8 [facility] [address] [place] Work Phone: [phone] Comment on above: PERFORMED BY:[facility] [place] [place], [place] [phone] MEDICAL DIRECTORVITOR ZARATE M.D. 4+ above high threshold Negative [facility] [address] [place] Work Phone: [phone] 0-1 Normal 0-2 [facility] [address] [place] Work Phone: [phone] Innumerable above high threshold 0-4 [facility] [address] [place] Work Phone: [phone] Positive above high threshold Negative [facility] [address] [place] Work Phone: [phone] 5.5\S\5.5 Normal 5.0-9.0 -[facility] [address] [place] Work Phone: [phone] 1.015\S\1.015 Normal 1.001-1.03 0 [facility] [address] [place] Work Phone: [phone] Turbid Critically abnormal Clear -[facility] [address] [place] Work Phone: [phone] Yellow Normal Yellow -[facility] [address] [place] Work Phone: [phone] -[facility] [address] [place] Work Phone: [phone] 21\S\21 Normal [facility] [address] [place] Work Phone: [phone] 21.8\S\21.8 below low threshold 23.0-27.0 [facility] [address] [place] Work Phone: [phone] 7.2\S\7.2 Normal 6.6-9.7 [facility] [address] [place] Work Phone: [phone] 95.4\S\95.4 Normal 95.0-100.0 [facility] [address] [place] Work Phone: [phone] -2.7\S\-2.7 Normal -3.0-3.0 [facility] [address] [place] Work Phone: [phone] 20.8\S\20.8 below low threshold 23.0-29.0 [facility] [address] [place] Work Phone: [phone] 76.9\S\76.9 below low threshold 80.0-100.0 -[facility] [address] [place] Work Phone: [phone] 32.1\S\32.1 below low threshold 35.0-45.0 -[facility] [address] [place] Work Phone: [phone] 7.43\S\7.43 Normal 7.35-7.45 [facility] [address] [place] Work Phone: Normal [facility] [address] [place] Work Phone: Comment on above: Critical Value gustafson d on: 06/23/2021 at 13:35PERFORMED BY:[place] [address] [address] [place], [place] [phone] MEDICAL DIRECTORVITOR ZARATE M.D. Right Radial Normal [facility] [address] [place] Work Phone: 24.4\S\24.4 Normal 22.0-30.0 [facility] [address] [place] Work Phone: Comment on above: PERFORMED BY:[facility] [place] [place] [id number] MEDICAL DIRECTORVITOR ZARATE M.D. 104\S\104 Normal 95-114 [facility] [address] [place] Work Phone: 4.4\S\4.4 Normal 3.5-5.1 [facility] [address] [place] Work Phone: 141\S\141 Normal 136-146 [facility] [address] [place] Work Phone: [facility] [address] [place] Work Phone: Radiologyon 06-23-2021 Portable XR Chest Views Normal [facility] [address] [place] Work Phone: BASIC METABOLIC PANELon 07-20 Calcium [Mass/Vol] 8.4 mg/dL Low 8.6-10.3 [facility] Comment on above: Order Comment: No: D o not add to previous draw Pt care Performed By: #### 0 0071 #### [facility] [address] [place] [address], [facility] Chloride [Moles/Vol] 105 mmol/L Normal 98-107 [facility] Comment on above: Order Comment: No: D o not add to previous draw Pt care Performed By: #### 0 0071 #### [facility] [address] [place] [address], [place] CO2 [Moles/Vol] 23 mmol/L Normal 21-31 [facility] Comment on above: Order Comment: No: D o not add to previous draw Pt care Performed By: #### 0 0071 #### [facility] [address] [place] [address], [place] Creatinine [Mass/Vol] 1.14 mg/dL Normal 0.60-1.20 [facility] Comment on above: Order Comment: No: D o not add to previous draw Pt care Performed By: #### 0 0071 #### [facility] [address] [place] [address], [place] GFR/1.73 sq M predicted among blacks MDRD (S/P/Bld) [Vol rate/Area] 56 ml/min/1.73sq m Abnormal >60 [facility] Comment on above: Order Comment: No: D o not add to previous draw Pt care Result Comment: Calc ulation may not be valid for patients over 70 years Performed By: #### 0 0071 #### [facility] [address] [place] [address], [place] GFR/1.73 sq M predicted among non-blacks MDRD (S/P/Bld) [Vol rate/Area] 46 ml/min/1.73sq m Abnormal >60 [facility] Comment on above: Order Comment: No: D o not add to previous draw Pt care Result Comment: Calc ulation may not be valid for patients over 70 years Performed By: #### 0 0071 #### [facility] [address] [place] [address], [place] Glucose [Mass/Vol] 151 mg/dL High 70-100 [facility] Comment on above: Order Comment: No: D o not add to previous draw Pt care Performed By: #### 0 0071 #### [facility] [address] [place] [address], [facility] Potassium [Moles/Vol] 3.9 mmol/L Normal 3.5-5.1 [facility] Comment on above: Order Comment: No: D o not add to previous draw Pt care Performed By: #### 0 0071 #### [facility] [address] [place] [address], [facility] Sodium [Moles/Vol] 139 mmol/L Normal 136-145 [facility] Comment on above: Order Comment: No: D o not add to previous draw Pt care Performed By: #### 0 0071 #### [facility] [address] [place] [address], [facility] Urea nitrogen [Mass/Vol] 14 mg/dL Normal 7-25 [facility] Comment on above: Order Comment: No: D o not add to previous draw Pt care Performed By: #### 0 0071 #### [address] [address], [facility] CTA CHESTon 07-31-2020 CTA CHEST [facility] Department of Radiology [address] [place] [id number] Patient Name: AUSTIN GOLDEN : 1940 Sex: F Age: Race: White Pt. Location: [address] [place] [address] Patient Status: D Ordered Date: 07/31/2020 10:25:00 [...] reports Electronically signed: Drew Rios. Transcribed by: [email or web address], User Resident: SANTO LAZO Electronically Signed by: DREW RIOS @ 08/02/2020 09:34 AM I personally read this/these film(s) with this resident Normal [facility] Comment on above: Order Comment: 12 ho urs post vitamin K administration/pre-procedure warfarin reversal No: Do not add to previous draw PROTHROMBIN TIMEon 0 INR Coag (PPP) [Relative time] 1.10 {INR} Normal 0.91-1.16 [facility] Comment on above: Order Comment: No: D o not add to previous draw Result Comment: ACCC P RECOMMENDED INR FOR WARFARIN THERAPY -------- ------- CONDITION INR PROPHYLAXIS OF VENOUS THROMBOSIS 2-3 (HIGH-RISK SURGERY) TREATMENT OF VENOUS THROMBOSIS 2-3 TREATMENT OF PULMONARY EMBOLISM 2-3 PREVENTION OF SYSTEMIC EMBOLISM: 2-3 ACUTE MYOCARDIAL INFARCTION TISSUE HEART VALVES VALVULAR HEART DISEASE ATRIAL FIBRILLATION RECURRENT SYSTEMIC EMBOLISM MECHANICAL HEART VALVE 2.5-3.5 FROM: ORAL ANTICOAGULANTS. MECHANISM OF ACTION, CLINICAL EFFECTIVENESS, AND OPTIMAL THERAPEUTIC RANGE. CHEST 1995;108:231S-246S. Performed By: #### 0 0071, [id number] #### [address] [place] [address], [place] PT Coag (PPP) [Time] 14.2 s Normal 12.3-14.8 [facility] Comment on above: Order Comment: No: D o not add to previous draw Result Comment: ALL RESULTS MUST BE INTERPRETED WITH RESPECT TO BLOOD DRAWING ARTIFACT OR DILUTION ERROR OF ANTICOAGULANT AT THE TIME OF SAMPLING. Performed By: #### 0 0071, [id number] #### [facility] [address] UFH HEPARIN ASSAYon 07-31-20 20 UNFRACTIONATED HEPARIN 0.32 IU/mL Normal 0.30-0.70 [facility] Comment on above: Result Comment: Aracelis roxaban and Apixaban will interfere with the anti Xa assay used to monitor UFH and LMWH. Performed By: #### 0 0071, [id number] #### [facility] [address] [place] [address], [facility] URINALYSIS REFLEXon 07-31-20 20 Appearance (U) CLOUDY Abnormal CLEAR [facility] Comment on above: Order Comment: No: D o not add to previous draw Performed By: #### 5 3629, [address], [address] #### [facility] [address] [place] [address], [facility] Bilirubin [Mass/Vol] Negative Normal NEGATIVE [facility] Comment on above: Order Comment: No: D o not add to previous draw Performed By: #### 5 3629, 03002, 21149 #### [facility] [address] [place] [address], [facility] BLOOD LARGE Abnormal NEGATIVE [facility] Comment on above: Order Comment: No: D o not add to previous draw Performed By: #### 5 3629, 96673, 46704 #### [facility] [address] [place] [address], [facility] Color (U) NEGIN Abnormal YELLOW [facility] Comment on above: Order Comment: No: D o not add to previous draw Performed By: #### 5 3629, 11349, 18605 #### [facility] [address] [place] [address], [place] EPIS MANY Abnormal FEW,OCC,NO NE SEEN [facility] Comment on above: Order Comment: No: D o not add to previous draw Performed By: #### 5 3629, 16656, 73617 #### [facility] [address] [place] [address], [place] Glucose [Mass/Vol] Negative Normal NEGATIVE [facility] Comment on above: Order Comment: No: D o not add to previous draw Performed By: #### 5 3629, 15661, 54850 #### [facility] [address] [place] [address], [facility] KETONE Negative Normal NEGATIVE [facility] Comment on above: Order Comment: No: D o not add to previous draw Performed By: #### 5 3629, 13696, 36548 #### [facility] [address] [place] [address], [facility] LEUK GEOFFREY MODERATE Abnormal NEGATIVE [facility] Comment on above: Order Comment: No: D o not add to previous draw Performed By: #### 5 3629, 69227, 71484 #### [facility] [address] [place] [address], [place] MUCUS THREADS FEW Abnormal NONE SEEN [facility] Comment on above: Order Comment: No: D o not add to previous draw Performed By: #### 5 3629, 54728, 39636 #### [facility] [address] [place] [address], [place] Nitrite Ql (U) Positive Abnormal NEGATIVE [facility] Comment on above: Order Comment: No: D o not add to previous draw Performed By: #### 5 3629, 80050, 83691 #### [facility] [address] [place] [address], [place] pH (Bld) 5.0 Normal 5.0-8.0 [facility] Comment on above: Order Comment: No: D o not add to previous draw Performed By: #### 5 3629, 05275, 96291 #### [facility] [address] [place] [address], [facility] Protein (U) [Mass/Vol] 100 mg/dL Abnormal NEGATIVE [facility] Comment on above: Order Comment: No: D o not add to previous draw Performed By: #### 5 3629, 56789, 16439 #### [facility] [address] [place] [address], [facility] RBC (U) [#/Vol] /uL Abnormal NONE SEEN [facility] Comment on above: Order Comment: No: D o not add to previous draw Performed By: #### 5 3629, 72018, 16178 #### [facility] [address] [place] [address], [facility] SPEC GRAV 1.025 High 1.015-1.02 0 [facility] Comment on above: Order Comment: No: D o not add to previous draw Performed By: #### 5 3629, 30562, 04906 #### [facility] [address] [place] [address], [facility] WBC UA >100 Abnormal NONE SEEN [facility] Comment on above: Order Comment: No: D o not add to previous draw Performed By: #### 5 3629, 01637, 80020 #### [facility] [address] [place] [address], [facility] BASIC METABOLIC PANELon 12- Calcium [Mass/Vol] 8.1 mg/dL Low 8.6-10.3 [facility] Comment on above: Order Comment: No: D o not add to previous draw Performed By: #### 0 0071 #### [facility] [address] [place] [id number], [facility] Chloride [Moles/Vol] 108 mmol/L High 98-107 [facility] Comment on above: Order Comment: No: D o not add to previous draw Performed By: #### 0 0071 #### [facility] [address] [place] [address], [place] CO2 [Moles/Vol] 24 mmol/L Normal 21-31 [facility] Comment on above: Order Comment: No: D o not add to previous draw Performed By: #### 0 0071 #### [facility] [address] [place] [address], [place] Creatinine [Mass/Vol] 0.99 mg/dL Normal 0.60-1.20 [facility] Comment on above: Order Comment: No: D o not add to previous draw Performed By: #### 0 0071 #### [facility] [address] [place] [address], [place] GFR/1.73 sq M predicted among blacks MDRD (S/P/Bld) [Vol rate/Area] mL/min/{1.73_m2} Normal >60 [facility] Comment on above: Order Comment: No: D o not add to previous draw Result Comment: Calc ulation may not be valid for patients over 70 years Performed By: #### 0 0071 #### [facility] [address] [place] [address], [place] GFR/1.73 sq M predicted among non-blacks MDRD (S/P/Bld) [Vol rate/Area] 54 ml/min/1.73sq m Abnormal >60 [facility] Comment on above: Order Comment: No: D o not add to previous draw Result Comment: Calc ulation may not be valid for patients over 70 years Performed By: #### 0 0071 #### [facility] [address] [place] [address], [place] Glucose [Mass/Vol] 104 mg/dL High 70-100 [facility] Comment on above: Order Comment: No: D o not add to previous draw Performed By: #### 0 0071 #### [facility] [address] [place] [address], [place] Potassium [Moles/Vol] 3.5 mmol/L Normal 3.5-5.1 [facility] Comment on above: Order Comment: No: D o not add to previous draw Performed By: #### 0 0071 #### [facility] [address] [place] [address], [facility] Sodium [Moles/Vol] 141 mmol/L Normal 136-145 [facility] Comment on above: Order Comment: No: D o not add to previous draw Performed By: #### 0 0071 #### [facility] [address] [place] [address], [facility] Urea nitrogen [Mass/Vol] 17 mg/dL Normal 7-25 [facility] Comment on above: Order Comment: No: D o not add to previous draw Performed By: #### 0 0071 #### [facility] [address] [place], [place] [address] CBC COMPLETE BLOOD COUNTon 09-30-2019 Erythrocyte distribution width (RBC) [Ratio] 17.3 % High 11.5-15.0 [facility] Comment on above: Order Comment: 12 ho urs post vitamin K administration/pre-procedure warfarin reversal No: Do not add to previous draw Performed By: #### 5 6101 #### [facility] [address] [place] [address], [facility] Hematocrit (Bld) [Volume fraction] 37.7 % Normal 36.0-45.0 [facility] Comment on above: Order Comment: 12 ho urs post vitamin K administration/pre-procedure warfarin reversal No: Do not add to previous draw Performed By: #### 5 6101 #### [facility] [address] [place] [address], [facility] Hemoglobin (Bld) [Mass/Vol] 12.0 g/dL Normal 12.0-15.0 [facility] Comment on above: Order Comment: 12 ho urs post vitamin K administration/pre-procedure warfarin reversal No: Do not add to previous draw Performed By: #### 5 6101 #### [facility] [address] [place] [address], [facility] MCH (RBC) [Entitic mass] 29.0 pg Normal 27.0-33.0 [facility] Comment on above: Order Comment: 12 ho urs post vitamin K administration/pre-procedure warfarin reversal No: Do not add to previous draw Performed By: #### 5 6101 #### [facility] [address] [place] [address], [facility] MCHC (RBC) [Mass/Vol] 31.8 g/dL Low 32.0-35.0 [facility] Comment on above: Order Comment: 12 ho urs post vitamin K administration/pre-procedure warfarin reversal No: Do not add to previous draw Performed By: #### 5 6101 #### [facility] [address] [place] [address], [facility] MCV (RBC) [Entitic vol] 91.1 fL Normal 82.0-98.0 [facility] Comment on above: Order Comment: 12 ho urs post vitamin K administration/pre-procedure warfarin reversal No: Do not add to previous draw Performed By: #### 5 6101 #### [facility] [address] [facility] [place] [address], [facility] Nucleated RBC/100 WBC (Bld) [Ratio] 0 % Normal 0-0 [facility] Comment on above: Order Comment: 12 ho urs post vitamin K administration/pre-procedure warfarin reversal No: Do not add to previous draw Performed By: #### 5 6101 #### [facility] [address] [facility] [place] [address], [facility] PLAT CNT 233 10*3/uL Normal 150-400 [facility] Comment on above: Order Comment: 12 ho urs post vitamin K administration/pre-procedure warfarin reversal No: Do not add to previous draw Performed By: #### 5 6101 #### [facility] [address] [place] [address], [facility] RBC (Bld) [#/Vol] 4.14 10*6/uL Normal 3.80-5.00 [facility] Comment on above: Order Comment: 12 ho urs post vitamin K administration/pre-procedure warfarin reversal No: Do not add to previous draw Performed By: #### 5 6101 #### [facility] [address] [place] [address], [facility] WBC (Bld) [#/Vol] 9.44 10*3/uL Normal 4.00-10.60 [facility] Comment on above: Order Comment: 12 ho urs post vitamin K administration/pre-procedure warfarin reversal No: Do not add to previous draw Performed By: #### 5 6101 #### [facility] [address] HEMATOCRITon 07-30-2020 Hematocrit (Bld) [Volume fraction] 43.9 % Normal 36.0-45.0 [facility] Comment on above: Order Comment: No: D o not add to previous draw Performed By: #### 5 3629, 33817, 37344 #### [facility] [address] HEMOGLOBINon 07-30-2020 Hemoglobin (Bld) [Mass/Vol] 13.5 g/dL Normal 12.0-15.0 [facility] Comment on above: Order Comment: No: D o not add to previous draw Performed By: #### 5 3629, 33453, 93179 #### [facility] [address] [place] [address], [facility] PROTHROMBIN TIMEon 0 INR Coag (PPP) [Relative time] 1.22 {INR} High 0.91-1.16 [facility] Comment on above: Order Comment: No: D o not add to previous draw Result Comment: [facility] RECOMMENDED INR FOR WARFARIN THERAPY -------- ------- CONDITION INR PROPHYLAXIS OF VENOUS THROMBOSIS 2-3 (HIGH-RISK SURGERY) TREATMENT OF VENOUS THROMBOSIS 2-3 TREATMENT OF PULMONARY EMBOLISM 2-3 PREVENTION OF SYSTEMIC EMBOLISM: 2-3 ACUTE MYOCARDIAL INFARCTION TISSUE HEART VALVES VALVULAR HEART DISEASE ATRIAL FIBRILLATION RECURRENT SYSTEMIC EMBOLISM MECHANICAL HEART VALVE 2.5-3.5 FROM: ORAL ANTICOAGULANTS. MECHANISM OF ACTION, CLINICAL EFFECTIVENESS, AND OPTIMAL THERAPEUTIC RANGE. CHEST 1995;108:231S-246S. Performed By: #### 0 0071, 25450 #### [facility] [address] PT Coag (PPP) [Time] 15.4 s High 12.3-14.8 [facility] Comment on above: Order Comment: No: D o not add to previous draw Result Comment: ALL RESULTS MUST BE INTERPRETED WITH RESPECT TO BLOOD DRAWING ARTIFACT OR DILUTION ERROR OF ANTICOAGULANT AT THE TIME OF SAMPLING. Performed By: #### 0 0071, 77266 #### [facility] [address] [facility] UFH HEPARIN ASSAYon 07-30-20 20 UNFRACTIONATED HEPARIN 0.45 IU/mL Normal 0.30-0.70 [facility] Comment on above: Result Comment: Aracelis roxaban and Apixaban will interfere with the anti Xa assay used to monitor UFH and LMWH. Performed By: #### 0 0071, 08141 #### [facility] [address] UNFRACTIONATED HEPARIN 0.52 IU/mL Normal 0.30-0.70 [facility] Comment on above: Result Comment: Aracelis roxaban and Apixaban will interfere with the anti Xa assay used to monitor UFH and LMWH. Performed By: #### 0 0071, 94824 #### [facility] [address] [place] [address], [facility] APTTon 07-29-2020 aPTT Coag (Bld) [Time] s Critically high 25.0-35.0 [facility] Comment on above: Result Comment: ALL [...] RN @0210 Performed By: #### 0 0071, 97639 #### [facility] [address] [facility] [place] [address], [facility] BASIC METABOLIC PANELon 07-20 Calcium [Mass/Vol] 7.4 mg/dL Low 8.6-10.3 [facility] Comment on above: Order Comment: No: D o not add to previous draw Performed By: #### 0 0071, 61859 #### [facility] [address] [place] [address], [facility] Chloride [Moles/Vol] 101 mmol/L Normal 98-107 [facility] Comment on above: Order Comment: No: D o not add to previous draw Performed By: #### 0 0071, 51684 #### [facility] [address] [place] [address], [facility] CO2 [Moles/Vol] 24 mmol/L Normal 21-31 [facility] Comment on above: Order Comment: No: D o not add to previous draw Performed By: #### 0 0071, 16687 #### [facility] [address] [place] [address], [facility] Creatinine [Mass/Vol] 1.02 mg/dL Normal 0.60-1.20 [facility] Comment on above: Order Comment: No: D o not add to previous draw Performed By: #### 0 0071, 93541 #### [facility] [address] [place] [address], [facility] GFR/1.73 sq M predicted among blacks MDRD (S/P/Bld) [Vol rate/Area] mL/min/{1.73_m2} Normal >60 [facility] Comment on above: Order Comment: No: D o not add to previous draw Result Comment: Calc ulation may not be valid for patients over 70 years Performed By: #### 0 0071, 64821 #### [facility] [address] [place] [address], [facility] GFR/1.73 sq M predicted among non-blacks MDRD (S/P/Bld) [Vol rate/Area] 53 ml/min/1.73sq m Abnormal >60 [facility] Comment on above: Order Comment: No: D o not add to previous draw Result Comment: Calc ulation may not be valid for patients over 70 years Performed By: #### 0 0071, 10927 #### [facility] [address] [place] [address], [facility] Glucose [Mass/Vol] 314 mg/dL High 70-100 [facility] Comment on above: Order Comment: No: D o not add to previous draw Performed By: #### 0 0071, 05799 #### [facility] [address] [place] [address], [place] Potassium [Moles/Vol] 3.1 mmol/L Low 3.5-5.1 [facility] Comment on above: Order Comment: No: D o not add to previous draw Performed By: #### 0 0071, 89698 #### [facility] [address] [place] [address], [place] Sodium [Moles/Vol] 139 mmol/L Normal 136-145 [facility] Comment on above: Order Comment: No: D o not add to previous draw Performed By: #### 0 0071, 02536 #### [facility] [address] [facility] [place] [address], [facility] Urea nitrogen [Mass/Vol] 15 mg/dL Normal 7-25 [facility] Comment on above: Order Comment: No: D o not add to previous draw Performed By: #### 0 0071, 00722 #### [facility] [address] [facility] [place] [address], [facility] MAGNESIUM BLOODon 07-29-2020 Magnesium [Mass/Vol] 1.5 mg/dL Low 1.9-2.7 [facility] Comment on above: Order Comment: No: D o not add to previous draw Performed By: #### 0 0071, 43636 #### [facility] [address] [place] [address], [facility] PORTABLE CHEST 1 VIEWon 07-20 PORTABLE CHEST 1 [facility] Department of Radiology [address] [place] [address] [id number] Patient Name: AUSTIN GOLDEN : 1940 Sex: F Age: Race: White Pt. Location: [id number] Patient Status: I Ordered Date: 07/29/2020 8:25:00 [...] atelectasis. Electronically signed: Emmanuel Armas. Transcribed by: [email or web address], User Resident: Electronically Signed by: EMMANUEL ARMAS @ 07/29/2020 09:41 AM Normal [facility] Comment on above: Order Comment: 12 ho urs post vitamin K administration/pre-procedure warfarin reversal No: Do not add to previous draw PROTHROMBIN TIMEon 0 INR Coag (PPP) [Relative time] 1.45 {INR} High 0.91-1.16 [facility] Comment on above: Order Comment: No: D o not add to previous draw Result Comment: [facility] P RECOMMENDED INR FOR WARFARIN THERAPY -------- ------- CONDITION INR PROPHYLAXIS OF VENOUS THROMBOSIS 2-3 (HIGH-RISK SURGERY) TREATMENT OF VENOUS THROMBOSIS 2-3 TREATMENT OF PULMONARY EMBOLISM 2-3 PREVENTION OF SYSTEMIC EMBOLISM: 2-3 ACUTE MYOCARDIAL INFARCTION TISSUE HEART VALVES VALVULAR HEART DISEASE ATRIAL FIBRILLATION RECURRENT SYSTEMIC EMBOLISM MECHANICAL HEART VALVE 2.5-3.5 FROM: ORAL ANTICOAGULANTS. MECHANISM OF ACTION, CLINICAL EFFECTIVENESS, AND OPTIMAL THERAPEUTIC RANGE. CHEST 1995;108:231S-246S. Performed By: #### 0 0071, 48984 #### [facility] [address] [facility] [place] [address], [facility] PT Coag (PPP) [Time] 17.7 s High 12.3-14.8 [facility] Comment on above: Order Comment: No: D o not add to previous draw Result Comment: ALL RESULTS MUST BE INTERPRETED WITH RESPECT TO BLOOD DRAWING ARTIFACT OR DILUTION ERROR OF ANTICOAGULANT AT THE TIME OF SAMPLING. Performed By: #### 0 0071, 46959 #### [facility] [address] UFH HEPARIN ASSAYon 07-29-20 20 UNFRACTIONATED HEPARIN 0.89 IU/mL High 0.30-0.70 [facility] Comment on above: Result Comment: [place] roxaban and Apixaban will interfere with the anti Xa assay used to monitor UFH and LMWH. Performed By: #### 0 0071, 13158 #### [facility] [address] UNFRACTIONATED HEPARIN 0.78 IU/mL High 0.30-0.70 [facility] Comment on above: Result Comment: [place] roxaban and Apixaban will interfere with the anti Xa assay used to monitor UFH and LMWH. Performed By: #### 0 0071, 71692 #### [facility] [address] UNFRACTIONATED HEPARIN >1.00 Critically high 0.30-0.70 [facility] Comment on above: Order Comment: 12 ho urs post vitamin K administration/pre-procedure warfarin reversal No: Do not add to previous draw Result Comment: [place] roxaban and Apixaban will interfere with the anti Xa assay used to monitor UFH and LMWH. UFH=1.22 RESULTS CHECKED AND CALLED. ACCURATELY READ BACK BY SAEID RING RN @2357 Performed By: #### 5 6101 #### [facility] [address] BASIC METABOLIC PANELon 12-0 9-2020 Calcium [Mass/Vol] 8.5 mg/dL Low 8.6-10.3 [facility] Comment on above: Order Comment: No: D o not add to previous draw Performed By: #### 0 0071 #### [facility] [address] [place] [address], [facility] Chloride [Moles/Vol] 108 mmol/L High 98-107 [facility] Comment on above: Order Comment: No: D o not add to previous draw Performed By: #### 0 0071 #### [facility] [address] [place] [address], [place] CO2 [Moles/Vol] 24 mmol/L Normal 21-31 [facility] Comment on above: Order Comment: No: D o not add to previous draw Performed By: #### 0 0071 #### [facility] [address] [place] [address], [facility] Creatinine [Mass/Vol] 1.03 mg/dL Normal 0.60-1.20 [facility] Comment on above: Order Comment: No: D o not add to previous draw Performed By: #### 0 0071 #### [facility] [address] [place] [address], [facility] GFR/1.73 sq M predicted among blacks MDRD (S/P/Bld) [Vol rate/Area] mL/min/{1.73_m2} Normal >60 [facility] Comment on above: Order Comment: No: D o not add to previous draw Result Comment: Calc ulation may not be valid for patients over 70 years Performed By: #### 0 0071 #### [facility] [address] [place] [address], [facility] GFR/1.73 sq M predicted among non-blacks MDRD (S/P/Bld) [Vol rate/Area] 52 ml/min/1.73sq m Abnormal >60 [facility] Comment on above: Order Comment: No: D o not add to previous draw Result Comment: Calc ulation may not be valid for patients over 70 years Performed By: #### 0 0071 #### [facility] [address] [place] [address], [place] Glucose [Mass/Vol] 120 mg/dL High 70-100 [facility] Comment on above: Order Comment: No: D o not add to previous draw Performed By: #### 0 0071 #### [facility] [address] [place] [address], [facility] Potassium [Moles/Vol] 3.7 mmol/L Normal 3.5-5.1 [facility] Comment on above: Order Comment: No: D o not add to previous draw Performed By: #### 0 0071 #### [facility] [address] [place] [address], [place] Sodium [Moles/Vol] 141 mmol/L Normal 136-145 [facility] Comment on above: Order Comment: No: D o not add to previous draw Performed By: #### 0 0071 #### [facility] [address] [place] [address], [facility] Urea nitrogen [Mass/Vol] 24 mg/dL Normal 7-25 [facility] Comment on above: Order Comment: No: D o not add to previous draw Performed By: #### 0 0071 #### [facility] [address] [place] [address], [facility] CBC COMPLETE BLOOD COUNTon 1 09-28-2019 Erythrocyte distribution width (RBC) [Ratio] 16.9 % High 11.5-15.0 [facility] Comment on above: Order Comment: 12 ho urs post vitamin K administration/pre-procedure warfarin reversal No: Do not add to previous draw Performed By: #### 5 6101 #### [facility] [address] [place] [address], [facility] Hematocrit (Bld) [Volume fraction] 40.8 % Normal 36.0-45.0 [facility] Comment on above: Order Comment: 12 ho urs post vitamin K administration/pre-procedure warfarin reversal No: Do not add to previous draw Performed By: #### 5 6101 #### [facility] [address] [place] [address], [facility] Hemoglobin (Bld) [Mass/Vol] 12.6 g/dL Normal 12.0-15.0 [facility] Comment on above: Order Comment: 12 ho urs post vitamin K administration/pre-procedure warfarin reversal No: Do not add to previous draw Performed By: #### 5 6101 #### [facility] [address] [place] [address], [facility] MCH (RBC) [Entitic mass] 28.5 pg Normal 27.0-33.0 [facility] Comment on above: Order Comment: 12 ho urs post vitamin K administration/pre-procedure warfarin reversal No: Do not add to previous draw Performed By: #### 5 6101 #### [facility] [address] [place] [address], [facility] MCHC (RBC) [Mass/Vol] 30.9 g/dL Low 32.0-35.0 [facility] Comment on above: Order Comment: 12 ho urs post vitamin K administration/pre-procedure warfarin reversal No: Do not add to previous draw Performed By: #### 5 [id number] #### [facility] [address] [place] [address], [facility] MCV (RBC) [Entitic vol] 92.3 fL Normal 82.0-98.0 [facility] Comment on above: Order Comment: 12 ho urs post vitamin K administration/pre-procedure warfarin reversal No: Do not add to previous draw Performed By: #### 5 [id number] #### [facility] [address] [place] [address], [facility] Nucleated RBC/100 WBC (Bld) [Ratio] 1 % High 0-0 [facility] Comment on above: Order Comment: 12 ho urs post vitamin K administration/pre-procedure warfarin reversal No: Do not add to previous draw Performed By: #### 5 [id number] #### [facility] [address] [facility] [place] [address], [facility] PLAT CNT 245 10*3/uL Normal 150-400 [facility] Comment on above: Order Comment: 12 ho urs post vitamin K administration/pre-procedure warfarin reversal No: Do not add to previous draw Performed By: #### 5 [id number] #### [facility] [address] [facility] [place] [address], [facility] RBC (Bld) [#/Vol] 4.42 10*6/uL Normal 3.80-5.00 [facility] Comment on above: Order Comment: 12 ho urs post vitamin K administration/pre-procedure warfarin reversal No: Do not add to previous draw Performed By: #### 5 [id number] #### [facility] [address] [facility] [place] [address], [facility] WBC (Bld) [#/Vol] 9.82 10*3/uL Normal 4.00-10.60 [facility] Comment on above: Order Comment: 12 ho urs post vitamin K administration/pre-procedure warfarin reversal No: Do not add to previous draw Performed By: #### 5 [id number] #### [facility] [address] [place] [address], [facility] CT BRAIN WO CONTRASTon 07-28 CT BRAIN WO CONTRAST [facility] Department of Radiology [address] [place] [id number] Patient Name: AUSTIN GOLDEN : 1940 Sex: F Age: Race: White Pt. 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 IMPRESSION: No acute findings. Electronically signed: Sukhdev Javier. Transcribed by: [email or web address], User Resident: Electronically Signed by: SUKHDEV JAVIER @ 07/28/2020 04:48 PM Normal [facility] Comment on above: Order Comment: 12 ho urs post vitamin K administration/pre-procedure warfarin reversal No: Do not add to previous draw CTA HEADon 07-28-2020 CTA HEAD [facility] Department of Radiology [address] [place] [id number] Patient Name: AUSTIN GOLDEN : 1940 Sex: F Age: Race: White Pt. 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 Electronically signed: Sukhdev Javier. Transcribed by: [email or web address], User Resident: Electronically Signed by: SUKHDEV JAVIER @ 07/28/2020 05:16 PM Normal [facility] Comment on above: Order Comment: No: D o not add to previous draw CTA NECKon 07-28-2020 CTA NECK [facility] Department of Radiology [address] [place] [phone] Patient Name: AUSTIN GOLDEN : 1940 Sex: F Age: Race: White Pt. 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 CONTRAST: TECHNIQUE: Multi-detector CT angiography axial slices of the neck were obtained during intravenous administration of IV contrast material. Sagittal, coronal, and 3-D reconstructions were performed and viewed on a separate workstation. The [place] Symptomatic Carotid Endarterectomy Trial (NASCET) method for [...] as low as reasonably achievable Electronically signed: Sukhdev Javier. Transcribed by: [email or web address], User Resident: Electronically Signed by: SUKHDEV JAVIER @ 07/28/2020 05:19 PM Normal [facility] Comment on above: Order Comment: No: D o not add to previous draw Cardiovascular Lab Reporton 07-28-2020 Cardiovascular Lab Report [facility] Patient Name: [facility] Maggy MR #: [id number] Department of Physician: Alfredo Ring MBahman Division of Service Date: 07/28/2020 Cardiology Birthdate: 1940 Adult Cardiovascular Room #: 3AB [id number] [address], [place] [address] Cardiovascular Laboratory Report PROCEDURE PERFORMED: Transesophageal echocardiogram and cardioversion. INDICATION: Atrial fibrillation. FELLOW: Hiwot Owens M.D. PROCEDURE IN DETAIL: An informed consent was obtained from the patient after explaining indications, risks and benefits, and alternatives. The patient understood and agreed and signed the consent form. The patient was brought to the powerhouse laborer and transesophageal echocardiogram was performed under conscious sedation. The patient obtained a total of 5.5 mg of Versed and 100 mcg of fentanyl during the procedure. The transesophageal echocardiogram did not show any thrombus in the left atrial appendage. Full VIRA report elsewhere. After the transesophageal echocardiogram, synchronized [...] Owens MD Date Trans: 07/28/2020 04:12 P/boaz [id number] cc: Jazmin العلي D.O. [address] [place] [phone] Normal [facility] PROTHROMBIN TIMEon 0 INR Coag (PPP) [Relative time] 1.67 {INR} High 0.91-1.16 [facility] Comment on above: Order Comment: No: D o not add to previous draw Result Comment: ACC P RECOMMENDED INR FOR WARFARIN THERAPY -------- ------- CONDITION INR PROPHYLAXIS OF VENOUS THROMBOSIS 2-3 (HIGH-RISK SURGERY) TREATMENT OF VENOUS THROMBOSIS 2-3 TREATMENT OF PULMONARY EMBOLISM 2-3 PREVENTION OF SYSTEMIC EMBOLISM: 2-3 ACUTE MYOCARDIAL INFARCTION TISSUE HEART VALVES VALVULAR HEART DISEASE ATRIAL FIBRILLATION RECURRENT SYSTEMIC EMBOLISM MECHANICAL HEART VALVE 2.5-3.5 FROM: ORAL ANTICOAGULANTS. MECHANISM OF ACTION, CLINICAL EFFECTIVENESS, AND OPTIMAL THERAPEUTIC RANGE. CHEST 1995;108:231S-246S. Performed By: #### 0 0071, [id number] #### [facility] [address] PT Coag (PPP) [Time] 19.7 s High 12.3-14.8 [facility] Comment on above: Order Comment: No: D o not add to previous draw Result Comment: ALL RESULTS MUST BE INTERPRETED WITH RESPECT TO BLOOD DRAWING ARTIFACT OR DILUTION ERROR OF ANTICOAGULANT AT THE TIME OF SAMPLING. Performed By: #### 0 0071, [id number] #### [facility] [address] [facility]. [address] INR Coag (PPP) [Relative time] 1.85 {INR} High 0.91-1.16 [facility] Comment on above: Order Comment: 12 ho urs post vitamin K administration/pre-procedure warfarin reversal No: Do not add to previous draw Result Comment: ACCC P RECOMMENDED INR FOR WARFARIN THERAPY -------- ------- CONDITION INR PROPHYLAXIS OF VENOUS THROMBOSIS 2-3 (HIGH-RISK SURGERY) TREATMENT OF VENOUS THROMBOSIS 2-3 TREATMENT OF PULMONARY EMBOLISM 2-3 PREVENTION OF SYSTEMIC EMBOLISM: 2-3 ACUTE MYOCARDIAL INFARCTION TISSUE HEART VALVES VALVULAR HEART DISEASE ATRIAL FIBRILLATION RECURRENT SYSTEMIC EMBOLISM MECHANICAL HEART VALVE 2.5-3.5 FROM: ORAL ANTICOAGULANTS. MECHANISM OF ACTION, CLINICAL EFFECTIVENESS, AND OPTIMAL THERAPEUTIC RANGE. CHEST 1995;108:231S-246S. Performed By: #### 5 6101 #### [facility] [address] PT Coag (PPP) [Time] 21.4 s High 12.3-14.8 [facility] Comment on above: Order Comment: 12 ho urs post vitamin K administration/pre-procedure warfarin reversal No: Do not add to previous draw Result Comment: ALL RESULTS MUST BE INTERPRETED WITH RESPECT TO BLOOD DRAWING ARTIFACT OR DILUTION ERROR OF ANTICOAGULANT AT THE TIME OF SAMPLING. Performed By: #### 5 [id number] #### [facility] [address] [facility]. [address] UFH HEPARIN ASSAYon 07-28-20 20 UNFRACTIONATED HEPARIN >1.00 Critically high 0.30-0.70 [facility] Comment on above: Result Comment: Aracelis roxaban and Apixaban will interfere with the anti Xa assay used to monitor UFH and LMWH. Results called. Accurately read back by Khushbu Shetty RN at 1415. Patient given a bolus of heparin prior to draw, causing elevated heparin levels Performed By: #### 5 [id number] #### [facility] [address] [facility]. [address] UNFRACTIONATED HEPARIN 0.38 IU/mL Normal 0.30-0.70 [facility] Comment on above: Result Comment: Aracelis roxaban and Apixaban will interfere with the anti Xa assay used to monitor UFH and LMWH. Performed By: #### 0 0071, 78831 #### [facility] [address] APTTon 07-27-2020 aPTT Coag (Bld) [Time] 39.6 s High 25.0-35.0 [facility] Comment on above: Order Comment: No: [...] THIS PURPOSE. Performed By: #### 5 3629, 30594, 30034 #### [facility] [address] [place] [address], [facility] aPTT Coag (Bld) [Time] 47.4 s High 25.0-35.0 [facility] Comment on above: Result Comment: ALL [...] PURPOSE. Performed By: #### 5 6101 #### [facility] [address] [place] [address], [facility] LIPID PROFILEon 07-27-2020 Cholesterol [Mass/Vol] 173 mg/dL Normal 120-200 [facility] Comment on above: Result Comment: CHOL ESTEROL REFERENCE RANGE: 20 YEARS AND OLDER CARDIOVASCULAR RISK Less than 200 mg/dl Low Risk 200 to 239 mg/dl Borderline Risk 240 mg/dl and greater High Risk Performed By: #### 5 3629, 35152, 20822 #### [facility] [address] [place] [address], [facility] Cholesterol in HDL [Mass/Vol] 33 mg/dL Normal 23-92 [facility] Comment on above: Result Comment: Slig ht variation in normal range could be due to gender and/or age. HDL CHOLESTEROL REFERENCE RANGE: 20 years and older Cardiovascular Risk > or =60 mg/dL Desirable 40 TO 59 mg/dL Low Risk <40 mg/dL High Risk Performed By: #### 5 362, 55074, 52719 #### [facility] [address] [place] [address], [facility] Cholesterol in LDL [Mass/Vol] 98 mg/dL Normal 0-130 [facility] Comment on above: Result Comment: LDL IS A CALCULATION LDL IS ONLY VALID IF THE TRIG IS LESS THAN 400. Performed By: #### 5 3629, 31519, 97194 #### [facility] [address] [place] [address], [facility] Cholesterol.total/Cho lesterol in HDL [Mass ratio] 5.2 {ratio} High 0.0-4.5 [facility] Comment on above: Performed By: #### 5 362, 95609, 67122 #### [facility] [address] NON-HDL CHOLESTEROL 140 mg/dL Normal [facility] Comment on above: Performed By: #### 5 362, 18062, 05026 #### [facility] [address] Triglyceride [Mass/Vol] 210 mg/dL High 40-149 [facility] Comment on above: Result Comment: TRIG LYCERIDE REFERENCE RANGE: 20 YEARS AND OLDER CARDIOVASCULAR RISK LESS THAN 150 mg/dl LOW RISK 150 TO 199 mg/dl BORDERLINE RISK 200 mg/dl AND GREATER HIGH RISK Performed By: #### 5 362, 37268, 95999 #### [facility] [address] [place] [address], [facility] VLDL CHOL 42 mg/dL High 0-40 [facility] Comment on above: Performed By: #### 5 3629, 08931, 18010 #### [facility] [address] PROTHROMBIN TIMEon 0 INR Coag (PPP) [Relative time] 2.07 {INR} High 0.91-1.16 [facility] Comment on above: Result Comment: ACCC P RECOMMENDED INR FOR WARFARIN THERAPY -------- ------- CONDITION INR PROPHYLAXIS OF VENOUS THROMBOSIS 2-3 (HIGH-RISK SURGERY) TREATMENT OF VENOUS THROMBOSIS 2-3 TREATMENT OF PULMONARY EMBOLISM 2-3 PREVENTION OF SYSTEMIC EMBOLISM: 2-3 ACUTE MYOCARDIAL INFARCTION TISSUE HEART VALVES VALVULAR HEART DISEASE ATRIAL FIBRILLATION RECURRENT SYSTEMIC EMBOLISM MECHANICAL HEART VALVE 2.5-3.5 FROM: ORAL ANTICOAGULANTS. MECHANISM OF ACTION, CLINICAL EFFECTIVENESS, AND OPTIMAL THERAPEUTIC RANGE. CHEST 1995;108:231S-246S. Performed By: #### 5 3629, 29604, 33278 #### [facility] [address] PT Coag (PPP) [Time] 23.4 s High 12.3-14.8 [facility] Comment on above: Result Comment: ALL RESULTS MUST BE INTERPRETED WITH RESPECT TO BLOOD DRAWING ARTIFACT OR DILUTION ERROR OF ANTICOAGULANT AT THE TIME OF SAMPLING. Performed By: #### 5 3629, 03998, 96859 #### [facility] [address] [facility]. [address] INR Coag (PPP) [Relative time] 3.07 {INR} High 0.91-1.16 [facility] Comment on above: Order Comment: 12 ho urs post vitamin K administration/pre-procedure warfarin reversal No: Do not add to previous draw Result Comment: ACCC P RECOMMENDED INR FOR WARFARIN THERAPY -------- ------- CONDITION INR PROPHYLAXIS OF VENOUS THROMBOSIS 2-3 (HIGH-RISK SURGERY) TREATMENT OF VENOUS THROMBOSIS 2-3 TREATMENT OF PULMONARY EMBOLISM 2-3 PREVENTION OF SYSTEMIC EMBOLISM: 2-3 ACUTE MYOCARDIAL INFARCTION TISSUE HEART VALVES VALVULAR HEART DISEASE ATRIAL FIBRILLATION RECURRENT SYSTEMIC EMBOLISM MECHANICAL HEART VALVE 2.5-3.5 FROM: ORAL ANTICOAGULANTS. MECHANISM OF ACTION, CLINICAL EFFECTIVENESS, AND OPTIMAL THERAPEUTIC RANGE. CHEST 1995;108:231S-246S. Performed By: #### 5 6101 #### [facility] [address] PT Coag (PPP) [Time] 32.0 s High 12.3-14.8 [facility] Comment on above: Order Comment: 12 ho urs post vitamin K administration/pre-procedure warfarin reversal No: Do not add to previous draw Result Comment: ALL RESULTS MUST BE INTERPRETED WITH RESPECT TO BLOOD DRAWING ARTIFACT OR DILUTION ERROR OF ANTICOAGULANT AT THE TIME OF SAMPLING. Performed By: #### 5 6101 #### [facility] [address] TROPONIN-Ion 07-27-2020 Troponin I.cardiac [Mass/Vol] 0.01 ng/mL Normal 0.00-0.04 [facility] Comment on above: Order Comment: No: D o not add to previous draw Result Comment: REFE RENCE RANGES: 0.00 - 0.04 ng/ml NORMAL 0.05 - 0.50 ng/ml INDETERMINATE > 0.50 ng/ml CONSISTENT WITH AN M.I. Performed By: #### 5 9819, 33581, 82924 #### [facility] [address] UFH HEPARIN ASSAYon 07-27-20 20 UNFRACTIONATED HEPARIN <0.10 Critically low 0.30-0.70 [facility] Comment on above: Result Comment: [place] roxaban and Apixaban will interfere with the anti Xa assay used to monitor UFH and LMWH. RESULTS CHECKED AND CALLED. ACCURATELY READ BACK BY Saeid Lees RN at 2122. Performed By: #### 5 3629, 99630, 48314 #### [facility] [address] APTTon 07-26-2020 aPTT Coag (Bld) [Time] 44.0 s High 25.0-35.0 [facility] Comment on above: Order Comment: No: [...] THIS PURPOSE. Performed By: #### 5 3629, 97195, 73591 #### [facility] [address] [facility] [address] BASIC METABOLIC PANELon 12- Calcium [Mass/Vol] 8.4 mg/dL Low 8.6-10.3 [facility] Comment on above: Order Comment: No: D o not add to previous draw Performed By: #### 5 3629, 66409, 17937 #### [facility] [address] [facility] [place] [address], [facility] Chloride [Moles/Vol] 107 mmol/L Normal 98-107 [facility] Comment on above: Order Comment: No: D o not add to previous draw Performed By: #### 5 3629, 31485, 42437 #### [facility] [address] [facility] [place] [address], [facility] CO2 [Moles/Vol] 23 mmol/L Normal 21-31 [facility] Comment on above: Order Comment: No: D o not add to previous draw Performed By: #### 5 3629, 68907, 76180 #### [facility] [address] [place] [address], [place] Creatinine [Mass/Vol] 1.00 mg/dL Normal 0.60-1.20 [facility] Comment on above: Order Comment: No: D o not add to previous draw Performed By: #### 5 5179, 48324, 88346 #### [facility] [address] [place] [address], [place] GFR/1.73 sq M predicted among blacks MDRD (S/P/Bld) [Vol rate/Area] mL/min/{1.73_m2} Normal >60 [facility] Comment on above: Order Comment: No: D o not add to previous draw Result Comment: Calc ulation may not be valid for patients over 70 years Performed By: #### 5 656, 32612, 83758 #### [facility] [address] [place] [address], [facility] GFR/1.73 sq M predicted among non-blacks MDRD (S/P/Bld) [Vol rate/Area] 53 ml/min/1.73sq m Abnormal >60 [facility] Comment on above: Order Comment: No: D o not add to previous draw Result Comment: Calc ulation may not be valid for patients over 70 years Performed By: #### 5 616, 54828, 56874 #### [facility] [address] [place] [address], [place] Glucose [Mass/Vol] 144 mg/dL High 70-100 [facility] Comment on above: Order Comment: No: D o not add to previous draw Performed By: #### 5 4909, 81768, 16432 #### [facility] [address] [place] [address], [place] Potassium [Moles/Vol] 3.9 mmol/L Normal 3.5-5.1 [facility] Comment on above: Order Comment: No: D o not add to previous draw Performed By: #### 5 423, 35557, 51961 #### [facility] [address] [place] [address], [facility] Sodium [Moles/Vol] 139 mmol/L Normal 136-145 [facility] Comment on above: Order Comment: No: D o not add to previous draw Performed By: #### 5 3629, 19415, 70356 #### [facility] [address] [place] [id number], [facility] Urea nitrogen [Mass/Vol] 24 mg/dL Normal 7-25 [facility] Comment on above: Order Comment: No: D o not add to previous draw Performed By: #### 5 3629, 07763, 07013 #### [facility] [address] [facility]. [address] BNP (B-TYPE NATRIURETIC PEPT BALTA)on 07-26-2020 Natriuretic peptide B (Bld) [Mass/Vol] 259 pg/mL High 0-100 [facility] Comment on above: Order Comment: No: D o not add to previous draw Result Comment: Give n the appropriate clinical setting a BNP result of >100 pg/mL indicates congestive heart failure. Performed By: #### 5 3629, 16871, 86752 #### [facility] [address] [facility] [place] [address], [facility] CBC W/DIFFon 07-26-2020 ABS BASOPHILS 0.1 10*3/uL Normal 0.0-0.2 [facility] Comment on above: Order Comment: 12 ho urs post vitamin K administration/pre-procedure warfarin reversal No: Do not add to previous draw Performed By: #### 5 6101 #### [facility] [address] [facility] [place] [address], [facility] ABS IMM GRANS 0.3 10*3/uL High 0.0-0.2 [facility] Comment on above: Order Comment: 12 ho urs post vitamin K administration/pre-procedure warfarin reversal No: Do not add to previous draw Performed By: #### 5 6101 #### [facility] [address] [facility] [place] [address], [place] ABS NEUTROPHILS 5.9 10*3/uL Normal 1.6-7.6 [facility] Comment on above: Order Comment: 12 ho urs post vitamin K administration/pre-procedure warfarin reversal No: Do not add to previous draw Performed By: #### 5 6101 #### [facility] [address] [place] [address], [facility] Basophils/100 WBC (Bld) 0.8 % Normal 0.0-1.0 [facility] Comment on above: Order Comment: 12 ho urs post vitamin K administration/pre-procedure warfarin reversal No: Do not add to previous draw Performed By: #### 5 6101 #### [facility] [address] [facility] [place] [address], [facility] Eosinophils (Bld) [#/Vol] 0.4 10*3/uL Normal 0.0-0.5 [facility] Comment on above: Order Comment: 12 ho urs post vitamin K administration/pre-procedure warfarin reversal No: Do not add to previous draw Performed By: #### 5 6101 #### [facility] [address] [place] [address], [facility] Eosinophils/100 WBC (Bld) 3.8 % Normal 0.0-6.0 [facility] Comment on above: Order Comment: 12 ho urs post vitamin K administration/pre-procedure warfarin reversal No: Do not add to previous draw Performed By: #### 5 6101 #### [facility] [address] [facility] [place] [address], [facility] Erythrocyte distribution width (RBC) [Ratio] 16.9 % High 11.5-15.0 [facility] Comment on above: Order Comment: 12 ho urs post vitamin K administration/pre-procedure warfarin reversal No: Do not add to previous draw Performed By: #### 5 6101 #### [facility] [address] [place] [address], [facility] Hematocrit (Bld) [Volume fraction] 43.8 % Normal 36.0-45.0 [facility] Comment on above: Order Comment: 12 ho urs post vitamin K administration/pre-procedure warfarin reversal No: Do not add to previous draw Performed By: #### 5 6101 #### [facility] [address] [facility] [place] [address], [facility] Hemoglobin (Bld) [Mass/Vol] 13.7 g/dL Normal 12.0-15.0 [facility] Comment on above: Order Comment: 12 ho urs post vitamin K administration/pre-procedure warfarin reversal No: Do not add to previous draw Performed By: #### 5 6101 #### [facility] [address] [facility] [address], [facility] IMMATURE GRANS 3.6 % High 0.0-1.0 [facility] Comment on above: Order Comment: 12 ho urs post vitamin K administration/pre-procedure warfarin reversal No: Do not add to previous draw Performed By: #### 5 6101 #### [facility] [address] [place] [address], [facility] Lymphocytes (Bld) [#/Vol] 2.1 10*3/uL Normal 1.2-4.0 [facility] Comment on above: Order Comment: 12 ho urs post vitamin K administration/pre-procedure warfarin reversal No: Do not add to previous draw Performed By: #### 5 [id number] #### [facility] [address] [id number], [facility] Lymphocytes/100 WBC (Bld) 22.0 % Normal 20.0-45.0 [facility] Comment on above: Order Comment: 12 ho urs post vitamin K administration/pre-procedure warfarin reversal No: Do not add to previous draw Performed By: #### 5 [id number] #### [facility] [address] [place] [address], [facility] MCH (RBC) [Entitic mass] 29.0 pg Normal 27.0-33.0 [facility] Comment on above: Order Comment: 12 ho urs post vitamin K administration/pre-procedure warfarin reversal No: Do not add to previous draw Performed By: #### 5 [id number] #### [facility] [address] [place] [address], [facility] MCHC (RBC) [Mass/Vol] 31.3 g/dL Low 32.0-35.0 [facility] Comment on above: Order Comment: 12 ho urs post vitamin K administration/pre-procedure warfarin reversal No: Do not add to previous draw Performed By: #### 5 [id number] #### [facility] [address] [place] [address], [facility] MCV (RBC) [Entitic vol] 92.6 fL Normal 82.0-98.0 [facility] Comment on above: Order Comment: 12 ho urs post vitamin K administration/pre-procedure warfarin reversal No: Do not add to previous draw Performed By: #### 5 [id number] #### [facility] [address] [place] [address], [facility] Monocytes (Bld) [#/Vol] 0.7 10*3/uL Normal 0.1-1.0 [facility] Comment on above: Order Comment: 12 ho urs post vitamin K administration/pre-procedure warfarin reversal No: Do not add to previous draw Performed By: #### 5 [id number] #### [facility] [address] [facility] [place] [address], [facility] MONOS 7.5 % Normal 5.0-12.0 [facility] Comment on above: Order Comment: 12 ho urs post vitamin K administration/pre-procedure warfarin reversal No: Do not add to previous draw Performed By: #### 5 [id number] #### [facility] [address] [place] [address], [facility] Neutrophils/100 WBC (Bld) 62.3 % Normal 40.0-72.0 [facility] Comment on above: Order Comment: 12 ho urs post vitamin K administration/pre-procedure warfarin reversal No: Do not add to previous draw Performed By: #### 5 [id number] #### [facility] [address] [place] [address], [facility] Nucleated RBC/100 WBC (Bld) [Ratio] 1 % High 0-0 [facility] Comment on above: Order Comment: 12 ho urs post vitamin K administration/pre-procedure warfarin reversal No: Do not add to previous draw Performed By: #### 5 [id number] #### [facility] [address] [place] [address], [facility] PLAT CNT 296 10*3/uL Normal 150-400 [facility] Comment on above: Order Comment: 12 ho urs post vitamin K administration/pre-procedure warfarin reversal No: Do not add to previous draw Performed By: #### 5 [id number] #### [facility] [address] [facility] [place] [address], [facility] RBC (Bld) [#/Vol] 4.73 10*6/uL Normal 3.80-5.00 [facility] Comment on above: Order Comment: 12 ho urs post vitamin K administration/pre-procedure warfarin reversal No: Do not add to previous draw Performed By: #### 5 [id number] #### [facility] [address] [place] [address], [facility] WBC (Bld) [#/Vol] 9.48 10*3/uL Normal 4.00-10.60 [facility] Comment on above: Order Comment: 12 ho urs post vitamin K administration/pre-procedure warfarin reversal No: Do not add to previous draw Performed By: #### 5 [id number] #### [facility] [address] [facility] [address] CPK-MB PROFILEon 07-26-2020 CK [Catalytic activity/Vol] 24 U/L Low 30-223 [facility] Comment on above: Order Comment: No: D o not add to previous draw Performed By: #### 1 0070, 63461, 23242, 19219, 72847, 55090 #### [facility] [address] [place] [id number], [facility] CK.MB [Mass/Vol] 1.5 ng/mL Normal 0.0-5.0 [facility] Comment on above: Order Comment: No: D o not add to previous draw Result Comment: IF T OTAL CK <200 U/L AND: 1. CKMB IS 5-10 NG/ML----BORDERLINE 2. CKMB IS >10 NG/ML----INDICATIVE OF [place] OR IF TOTAL CK >200 U/L AND CKMB INDEX >1.9----INDICATIVE OF [place] Performed By: #### 1 0070, 43361, 41833, 42730, 06410, 11948 #### [facility] [address] CK.MB [Mass/Vol] 6.3 ng/mL Critically high 0.0-1.9 [facility] Comment on above: Order Comment: No: D o not add to previous draw Performed By: #### 1 0070, 97146, 48227, 73747, 04299, 68688 #### [facility] [address] D DIMER TESTon 07-26-2020 D-DIMER TEST 2.34 mcg/mL FEU High 0.27-0.49 [facility] Comment on above: Order Comment: No: D o not add to previous draw Result Comment: D-Di ricky values of less than 0.50 ug/ml (FEU) are considered to be a negative predictor of thrombosis. However, the D-Dimer result should be used in conjunction with pretest probability and should not be used alone to diagnose a thrombotic event. Performed By: #### 5 3629, 23815, 23939 #### [facility] [address] History and Physicalon 07-26 History and Physical MR#: [id number] [facility] Pt. Name: Austin Golden Admitted: 07/26/2020 Date of : 1940 Attending Physician: Jaqueline Quevedo M.D. Room #: [address] [place] [address] Discharge Date: HISTORY AND PHYSICAL CHIEF COMPLAINT: Shortness of breath. HISTORY OF PRESENT ILLNESS: The patient is a 79-year-old female with a past medical history of atrial fibrillation, on Coumadin, fibromyalgia, hypertension, and history of COVID at the beginning of June, presented to [facility] as a direct transfer from [facility] ER. The patient presented to the [...] Normal affect and mood. LABORATORY DATA: From [facility] ER shows white blood cells 9.1, [...] and GI prophylaxis. 7. PT, OT, and Revenue Settlements Administrator for discharge planning. Electronically Signed by: Jaqueline Quevedo M.D. 07/27/2020 10:46 A Jaqueline Quevedo M.D. Date Dict: 07/26/2020/06:24 P/Jaqueline Quevedo M.D. Date Trans: 07/26/2020 07:50 P/macko [id number] Normal [facility] LIVER BATTERYon 07-26-2020 Albumin [Mass/Vol] 3.4 g/dL Low 3.5-5.7 [facility] Comment on above: Order Comment: No: D o not add to previous draw Performed By: #### 5 3629, 38016, 05220 #### [facility] [address] [place] [address], [place] ALKALINE PHOSPH 82 IU/L Normal 34-104 [facility] Comment on above: Order Comment: No: D o not add to previous draw Performed By: #### 5 3629, 02686, 38847 #### [facility] [address] [place] [address], [place] ALT [Catalytic activity/Vol] 28 U/L Normal 7-52 [facility] Comment on above: Order Comment: No: D o not add to previous draw Performed By: #### 5 3629, 60744, 90583 #### [facility] [address] [place] [address], [place] AST [Catalytic activity/Vol] 26 U/L Normal 13-39 [facility] Comment on above: Order Comment: No: D o not add to previous draw Performed By: #### 5 3629, 47846, 04942 #### [facility] [address] [place] [address], [place] Bilirubin [Mass/Vol] 0.6 mg/dL Normal 0.3-1.0 [facility] Comment on above: Order Comment: No: D o not add to previous draw Performed By: #### 5 3629, 10585, 66556 #### [facility] [address] [place] [address], [place] Bilirubin.direct [Mass/Vol] 0.2 mg/dL Normal 0.0-0.2 [facility] Comment on above: Order Comment: No: D o not add to previous draw Performed By: #### 5 3629, 28887, 83427 #### [facility] [address] [place] [address], [facility] Protein [Mass/Vol] 5.8 g/dL Low 6.0-8.3 [facility] Comment on above: Order Comment: No: D o not add to previous draw Performed By: #### 5 3629, 44629, 16203 #### [facility] [address] [place] [address], [facility] MAGNESIUM BLOODon 07-26-2020 Magnesium [Mass/Vol] 1.8 mg/dL Low 1.9-2.7 [facility] Comment on above: Order Comment: No: D o not add to previous draw Performed By: #### 5 3629, 22339, 14212 #### [facility] [address] [place] [address], [facility] PHOSPHORUS BLOODon 0 Phosphate [Mass/Vol] 3.4 mg/dL Normal 2.5-5.0 [facility] Comment on above: Order Comment: No: D o not add to previous draw Performed By: #### 5 3629, 78178, 61553 #### [facility] [address] PROTHROMBIN TIMEon 0 INR Coag (PPP) [Relative time] 3.23 {INR} High 0.91-1.16 [facility] Comment on above: Order Comment: No: D o not add to previous draw Result Comment: ACCC P RECOMMENDED INR FOR WARFARIN THERAPY -------- ------- CONDITION INR PROPHYLAXIS OF VENOUS THROMBOSIS 2-3 (HIGH-RISK SURGERY) TREATMENT OF VENOUS THROMBOSIS 2-3 TREATMENT OF PULMONARY EMBOLISM 2-3 PREVENTION OF SYSTEMIC EMBOLISM: 2-3 ACUTE MYOCARDIAL INFARCTION TISSUE HEART VALVES VALVULAR HEART DISEASE ATRIAL FIBRILLATION RECURRENT SYSTEMIC EMBOLISM MECHANICAL HEART VALVE 2.5-3.5 FROM: ORAL ANTICOAGULANTS. MECHANISM OF ACTION, CLINICAL EFFECTIVENESS, AND OPTIMAL THERAPEUTIC RANGE. CHEST 1995;108:231S-246S. Performed By: #### 5 3629, 53503, 06765 #### [facility] [address] [place] [address], [facility] PT Coag (PPP) [Time] 33.3 s High 12.3-14.8 [facility] Comment on above: Order Comment: No: D o not add to previous draw Result Comment: ALL RESULTS MUST BE INTERPRETED WITH RESPECT TO BLOOD DRAWING ARTIFACT OR DILUTION ERROR OF ANTICOAGULANT AT THE TIME OF SAMPLING. Performed By: #### 5 3629, 45182, 18603 #### [facility] [address] [facility] [place] [address], [facility] TROPONIN-Ion 07-26-2020 Troponin I.cardiac [Mass/Vol] 0.01 ng/mL Normal 0.00-0.04 [facility] Comment on above: Order Comment: No: D o not add to previous draw Result Comment: REFE RENCE RANGES: 0.00 - 0.04 ng/ml NORMAL 0.05 - 0.50 ng/ml INDETERMINATE > 0.50 ng/ml CONSISTENT WITH AN M.I. Performed By: #### 5 3629, 28311, 98989 #### [facility] [address] [place] [address], [facility] Vital Signs Date Time Vital Sign Value Performing Clinician Facility 04-30-2025 16:130400 Body height 149.9 cm Joseph Sepulveda DPM Work Phone: [facility] 04-30-2025 16:13-0400 Body mass index (BMI) [Ratio] 24.44 kg/m2 Joseph Sepulveda DPM Work Phone: [facility] 04-30-2025 16:13-0400 Body weight 54.88 kg Joseph Brown DPM Work Phone: [facility] 04-30-2025 16:13-0400 Respiratory rate 18 /min Joseph Sepulveda DPM Work Phone: [facility] 02-23-2025 15:07-0400 Body mass index (BMI) [Ratio] 26.26 kg/m2 Cristiana Chapa REELER OPERATOR-GLASSBLOWER Work Phone: [facility] 02-23-2025 [id number] Body weight 58.97 kg Cristiana Chapa REELER OPERATOR-[employer]ASSBLOWER Work Phone: [facility] 02-23-2025 15:07-0400 Diastolic blood pressure 60 mm[Hg] Cristiana Chapa REELER OPERATOR-[employer]ASSBLOWER Work Phone: [facility] 02-23-2025 15:07-0400 Heart rate 69 /min Cristiana Meadel REELER OPERATOR-[employer]OWER Work Phone: [facility] 02-23-2025 15:07-0400 Systolic blood pressure 122 mm[Hg] Cristiana Chapa REELER OPERATOR-GLASSBLOWER Work Phone: [facility] 02-12-2025 10:31-0400 Body height 149.9 cm Joseph Sepulveda DPM Work Phone: [facility] 02-12-2025 10:31-0400 Body mass index (BMI) [Ratio] 24.44 kg/m2 Joseph Sepulveda DPM Work Phone: [facility] 02-12-2025 10:31-0400 Body weight 54.88 kg Joseph Brown DPM Work Phone: [facility] 02-12-2025 10:31-0400 Respiratory rate 18 /min Joseph Sepulveda DPM Work Phone: [facility] 01-23-2025 15:02-0400 Body temperature 97.9 [degF] Jazmin Ball DO Work Phone: [facility] 01-23-2025 15:02-0400 Diastolic blood pressure 68 mm[Hg] Jazmin Ball DO Work Phone: [facility] 01-23-2025 15:02-0400 Heart rate 102 /min Jazmin Ball DO Work Phone: [facility] 01-23-2025 15:02-0400 Respiratory rate 18 /min Jazmin Ball DO Work Phone: [facility] 01-23-2025 15:02-0400 SaO2% (BldA) [Mass fraction] 96 % Jazmin Ball DO Work Phone: [facility] 01-23-2025 15:02-0400 Systolic blood pressure 106 mm[Hg] Jazmin Ball DO Work Phone: [facility] 01-23-2025 05:19-0400 Inhaled oxygen flow rate 2 L/min Jazmin Ball DO Work Phone: [facility] 01-23-2025 03:36-0400 Body weight 58.2 kg Jazmin Ball DO Work Phone: [facility] 01-23-2025 00:21-0400 Body height 149.86 cm Jazmin Ball DO Work Phone: [facility] 01-23-2025 00:00-0400 Inhaled oxygen flow rate 2 L/min Jazmin Ball DO Work Phone: [facility] 01-22-2025 23:25-0400 Diastolic blood pressure 63 mm[Hg] Jazmin Ball DO Work Phone: [facility] 01-22-2025 23:25-0400 Heart rate 120 /min Jazmin Ball DO Work Phone: [facility] 01-22-2025 23:25-0400 Respiratory rate 22 /min Jazmin Ball DO Work Phone: [facility] 01-22-2025 23:25-0400 SaO2% (BldA) [Mass fraction] 96 % Jazmin Ball DO Work Phone: [facility] 01-22-2025 23:25-0400 Systolic blood pressure 106 mm[Hg] Jazmin Ball DO Work Phone: [facility] 01-22-2025 18:17-0400 Body temperature 97.7 [degF] Jazmin Ball DO Work Phone: [facility] 01-22-2025 18:15-0400 Body height 149.86 cm Jazmin Ball DO Work Phone: [facility] 01-22-2025 18:15-0400 Body weight 58.7 kg Jazmin Ball DO Work Phone: [facility] 01-21-2025 13:38-0400 Body height 149.86 cm [facility] 01-21-2025 13:38-0400 Body mass index (BMI) [Ratio] 26.5 kg/m2 [facility] 01-21-2025 13:38-0400 Body weight 59.59 kg [facility] 01-21-2025 13:38-0400 Diastolic blood pressure 82 mm[Hg] [facility] 01-21-2025 13:38-0400 Heart rate 116 /min [facility] 01-21-2025 13:38-0400 Respiratory rate 12 /min [facility] 01-21-2025 13:38-0400 SaO2% (BldA) [Mass fraction] 95 % [facility] 01-21-2025 13:38-0400 Systolic blood pressure 135 mm[Hg] [facility] 01-09-2025 14:29-0400 Body height 149.86 cm [facility] 01-09-2025 14:29-0400 Body mass index (BMI) [Ratio] 25.9 kg/m2 [facility] 01-09-2025 14:29-0400 Body weight 58.17 kg [facility] 01-09-2025 14:29-0400 Diastolic blood pressure 82 mm[Hg] [facility] 01-09-2025 14:29-0400 Heart rate 73 /min [facility] 01-09-2025 14:29-0400 Respiratory rate 12 /min [facility] 01-09-2025 14:29-0400 SaO2% (BldA) [Mass fraction] 97 % [facility] 01-09-2025 14:29-0400 Systolic blood pressure 132 mm[Hg] [facility] 12-08-2024 11:14-0400 Diastolic blood pressure 52 mm[Hg] Nigel El MD Work Phone: [facility] 12-08-2024 11:14-0400 Heart rate 95 /min Nigel El MD Work Phone: [facility] 12-08-2024 11:14-0400 Respiratory rate 18 /min Nigel El MD Work Phone: [facility] 12-08-2024 11:14-0400 SaO2% (BldA) [Mass fraction] 95 % Nigel El MD Work Phone: [facility] 12-08-2024 11:14-0400 Systolic blood pressure 126 mm[Hg] Nigel El MD Work Phone: [facility] 12-08-2024 10:52-0400 Body temperature 97.7 [degF] Nigel El MD Work Phone: [facility] 10-23-2024 11:28-0500 Body height 149.9 cm Maxwell Medrano MD Work Phone: [facility] 10-23-2024 11:28-0500 Body mass index (BMI) [Ratio] 27.59 kg/m2 Maxwell Medrano MD Work Phone: [facility] 10-23-2024 11:28-0500 Body weight 61.96 kg Maxwell Medrano MD Work Phone: [facility] 10-23-2024 11:28-0500 Diastolic blood pressure 60 mm[Hg] Maxwell Medrano MD Work Phone: [facility] 10-23-2024 11:28-0500 Heart rate 71 /min Maxwell Medrano MD Work Phone: [facility] 10-23-2024 11:28-0500 Systolic blood pressure 120 mm[Hg] Maxwell Medrano MD Work Phone: [facility] 10-06-2024 15:27-0500 Body height 149.86 cm Jazmin Ball DO Work Phone: [facility] 10-06-2024 15:27-0500 Body mass index (BMI) [Ratio] 26.9 kg/m2 Jazmin Ball DO Work Phone: [facility] 10-06-2024 15:27-0500 Body weight 60.32 kg Jazmin Ball DO Work Phone: [facility] 10-06-2024 15:27-0500 Diastolic blood pressure 74 mm[Hg] Jazmin Ball DO Work Phone: [facility] 10-06-2024 15:27-0500 Heart rate 88 /min Jazmin Ball DO Work Phone: [facility] 10-06-2024 15:27-0500 SaO2% (BldA) [Mass fraction] 97 % Jazmin Ball DO Work Phone: [facility] 10-06-2024 15:27-0500 Systolic blood pressure 122 mm[Hg] Jazmin Ball DO Work Phone: [facility] 09-12-2024 13:30-0500 Diastolic blood pressure 79 mm[Hg] Jazmin Ball DO Work Phone: [facility] 09-12-2024 13:30-0500 Heart rate 112 /min Jazmin Ball DO Work Phone: [facility] 09-12-2024 13:30-0500 Respiratory rate 18 /min Jazmin Ball DO Work Phone: [facility] 09-12-2024 13:30-0500 Systolic blood pressure 125 mm[Hg] Jazmin Ball DO Work Phone: [facility] 09-12-2024 12:34-0500 SaO2% (BldA) [Mass fraction] 92 % Jazmin Ball DO Work Phone: [facility] 09-12-2024 11:17-0500 Body height 149.86 cm Jazmin Ball DO Work Phone: [facility] 09-12-2024 11:17-0500 Body temperature 97.4 [degF] Jazmin Ball DO Work Phone: [facility] 09-12-2024 11:17-0500 Body weight 64.3 kg Jazmin Ball DO Work Phone: [facility] 09-09-2024 15:11-0500 Body height 149.86 cm Jazmin Ball DO Work Phone: [facility] 09-09-2024 15:11-0500 Body mass index (BMI) [Ratio] 29.5 kg/m2 Jazmin Ball DO Work Phone: [facility] 09-09-2024 15:11-0500 Body temperature 97.6 [degF] Jazmin Ball DO Work Phone: [facility] 09-09-2024 15:11-0500 Body weight 66.33 kg Jazmin Ball DO Work Phone: [facility] 09-09-2024 15:11-0500 Diastolic blood pressure 70 mm[Hg] Jazmin Ball DO Work Phone: [facility] 09-09-2024 15:11-0500 Heart rate 108 /min Jazmin Ball DO Work Phone: [facility] 09-09-2024 15:11-0500 SaO2% (BldA) [Mass fraction] 97 % Jazmin Ball DO Work Phone: [facility] 09-09-2024 15:11-0500 Systolic blood pressure 125 mm[Hg] Jazmin Ball DO Work Phone: [facility] 09-05-2024 11:19-0500 Body height 149.9 cm Debbie Mac MD Work Phone: [facility] 09-05-2024 11:19-0500 Body mass index (BMI) [Ratio] 28.48 kg/m2 Debbie Mac MD Work Phone: [facility] 09-05-2024 11:19-0500 Body weight 63.96 kg Debbie Mac MD Work Phone: [facility] 09-05-2024 11:19-0500 Diastolic blood pressure 80 mm[Hg] Debbie Mac MD Work Phone: [facility] 09-05-2024 11:19-0500 Heart rate 112 /min Debbie Mac MD Work Phone: [facility] 09-05-2024 11:19-0500 Systolic blood pressure 112 mm[Hg] Debbie Mac MD Work Phone: [facility] 08-27-2024 14:09-0500 Body height 149.86 cm Jazmin Ball DO Work Phone: [facility] 08-27-2024 14:09-0500 Body mass index (BMI) [Ratio] 28.6 kg/m2 Jazmin Ball DO Work Phone: [facility] 08-27-2024 14:09-0500 Body weight 64.41 kg Jazmin Ball DO Work Phone: [facility] 08-27-2024 14:09-0500 Diastolic blood pressure 79 mm[Hg] Jazmin Ball DO Work Phone: [facility] 08-27-2024 14:09-0500 Heart rate 91 /min Jazmin Ball DO Work Phone: [facility] 08-27-2024 14:09-0500 Respiratory rate 12 /min Jazmin Ball DO Work Phone: [facility] 08-27-2024 14:09-0500 Systolic blood pressure 129 mm[Hg] Jazmin Ball DO Work Phone: [facility] 07-31-2024 11:04-0500 Body height 149.86 cm Jazmin Ball DO Work Phone: [facility] 07-31-2024 11:04-0500 Body mass index (BMI) [Ratio] 29.5 kg/m2 Jazmin Ball DO Work Phone: [facility] 07-31-2024 11:04-0500 Body weight 66.28 kg Jazmin Ball DO Work Phone: [facility] 07-31-2024 11:04-0500 Diastolic blood pressure 82 mm[Hg] Jazmin Ball DO Work Phone: [facility] 07-31-2024 11:04-0500 Heart rate 110 /min Jazmin Ball DO Work Phone: [facility] 07-31-2024 11:04-0500 SaO2% (BldA) [Mass fraction] 98 % Jazmin Ball DO Work Phone: [facility] 07-31-2024 11:04-0500 Systolic blood pressure 132 mm[Hg] Jazmin Ball DO Work Phone: [facility] 07-28-2024 11:58-0500 Body height 152.4 cm Maxwell Medrano MD Work Phone: [facility] 07-28-2024 11:58-0500 Body mass index (BMI) [Ratio] 28.16 kg/m2 Maxwell Medrano MD Work Phone: [facility] 07-28-2024 11:58-0500 Body weight 65.41 kg Maxwell Medrano MD Work Phone: [facility] 07-28-2024 11:58-0500 Diastolic blood pressure 74 mm[Hg] Maxwell Medrano MD Work Phone: [facility] 07-28-2024 11:58-0500 Heart rate 84 /min Maxwell Medrano MD Work Phone: [facility] 07-28-2024 11:58-0500 Systolic blood pressure 112 mm[Hg] Maxwell Medrano MD Work Phone: [facility] 07-24-2024 08:08-0500 Diastolic blood pressure 67 mm[Hg] Jazmin Ball DO Work Phone: [facility] 07-24-2024 08:08-0500 Heart rate 92 /min Jazmin Ball DO Work Phone: [facility] 07-24-2024 08:08-0500 Respiratory rate 18 /min Jazmin Ball DO Work Phone: [facility] 07-24-2024 08:08-0500 SaO2% (BldA) [Mass fraction] 93 % Jazmin Ball DO Work Phone: [facility] 07-24-2024 08:08-0500 Systolic blood pressure 124 mm[Hg] Jazmin Ball DO Work Phone: [facility] 07-24-2024 06:00-0500 Body weight 67.1 kg Jazmin Ball DO Work Phone: [facility] 07-24-2024 04:00-0500 Inhaled oxygen flow rate 2 L/min Jazmin Ball DO Work Phone: [facility] 07-23-2024 20:00-0500 Body temperature 98.3 [degF] Jazmin Ball DO Work Phone: [facility] 07-21-2024 21:34-0500 Body height 149.86 cm Jazmin Ball DO Work Phone: [facility] 07-09-2024 14:59-0500 Body height 149.86 cm Jazmin Ball DO Work Phone: [facility] 07-09-2024 14:59-0500 Body mass index (BMI) [Ratio] 29.1 kg/m2 Jazmin Ball DO Work Phone: [facility] 07-09-2024 14:59-0500 Body weight 65.48 kg Jazmin Ball DO Work Phone: [facility] 07-09-2024 14:59-0500 Diastolic blood pressure 82 mm[Hg] Jazmin Ball DO Work Phone: [facility] 07-09-2024 14:59-0500 Heart rate 101 /min Jazmin Ball DO Work Phone: [facility] 07-09-2024 14:59-0500 Respiratory rate 12 /min Jazmin Ball DO Work Phone: [facility] 07-09-2024 14:59-0500 Systolic blood pressure 138 mm[Hg] Jazmin Ball DO Work Phone: [facility] 07-03-2024 12:00-0500 Diastolic blood pressure 95 mm[Hg] Jazmin Ball DO Work Phone: [facility] 07-03-2024 12:00-0500 Heart rate 73 /min Jazmin Ball DO Work Phone: [facility] 07-03-2024 12:00-0500 Respiratory rate 16 /min Jazmin Ball DO Work Phone: [facility] 07-03-2024 12:00-0500 SaO2% (BldA) [Mass fraction] 95 % Jazmin Ball DO Work Phone: [facility] 07-03-2024 12:00-0500 Systolic blood pressure 149 mm[Hg] Jazmin Ball DO Work Phone: [facility] 07-03-2024 08:00-0500 Body temperature 97.6 [degF] Jazmin Ball DO Work Phone: [facility] 07-03-2024 08:00-0500 Inhaled oxygen flow rate 2 L/min Jazmin Ball DO Work Phone: [facility] 07-03-2024 04:50-0500 Body weight 71 kg Jazmin Ball DO Work Phone: [facility] 06-30-2024 18:56-0500 Body height 149.86 cm Jazmin Ball DO Work Phone: [facility] 06-30-2024 18:56-0500 Body temperature 97.8 [degF] Jazmin Ball DO Work Phone: [facility] 06-30-2024 18:56-0500 Body weight 63.5 kg Jazmin Ball DO Work Phone: [facility] 06-30-2024 18:56-0500 Diastolic blood pressure 80 mm[Hg] Jazmin Ball DO Work Phone: [facility] 06-30-2024 18:56-0500 Heart rate 90 /min Jazmin Ball DO Work Phone: [facility] 06-30-2024 18:56-0500 Respiratory rate 20 /min Jazmin Ball DO Work Phone: [facility] 06-30-2024 18:56-0500 SaO2% (BldA) [Mass fraction] 96 % Jazmin Ball DO Work Phone: [facility] 06-30-2024 18:56-0500 Systolic blood pressure 121 mm[Hg] Jazmin Ball DO Work Phone: [facility] 06-10-2024 15:20-0400 Body height 149.86 cm DO Jazmin Ball Work Phone: [facility] 06-10-2024 15:20-0400 Body mass index (BMI) [Ratio] 29.2 kg/m2 DO Jazmin Ball Work Phone: [facility] 06-10-2024 15:20-0400 Body weight 65.54 kg DO Jazmin Ball Work Phone: [facility] 06-10-2024 15:20-0400 Diastolic blood pressure 84 mm[Hg] DO Jazmin Ball Work Phone: [facility] 06-10-2024 15:20-0400 Heart rate 91 /min DO Jazmin Ball Work Phone: [facility] 06-10-2024 15:20-0400 Respiratory rate 20 /min DO Jazmin Ball Work Phone: [facility] 06-10-2024 15:20-0400 Systolic blood pressure 149 mm[Hg] DO Jazmin العلي Work Phone: [facility] 06-05-2024 12:58-0400 Body height 152.4 cm Maxwell Medrano MD Work Phone: [facility] 06-05-2024 12:58-0400 Body mass index (BMI) [Ratio] 28.63 kg/m2 Maxwell Medrano MD Work Phone: [facility] 06-05-2024 12:58-0400 Body weight 66.5 kg Maxwell Medrano MD Work Phone: [facility] 06-05-2024 12:58-0400 Diastolic blood pressure 64 mm[Hg] Maxwell Medrano MD Work Phone: [facility] 06-05-2024 12:58-0400 Systolic blood pressure 126 mm[Hg] Maxwell Medrano MD Work Phone: [facility] 05-29-2024 13:46-0400 Diastolic blood pressure 64 mm[Hg] Katie Yung MD Work Phone: [facility] 05-29-2024 13:46-0400 Heart rate 93 /min Katie Yung MD Work Phone: [facility] 05-29-2024 13:46-0400 Respiratory rate 17 /min Katie Yung MD Work Phone: [facility] 05-29-2024 13:46-0400 SaO2% (BldA) [Mass fraction] 100 % [facility] 05-29-2024 13:46-0400 Systolic blood pressure 119 mm[Hg] Katie Yung MD Work Phone: [facility] 05-29-2024 13:20-0400 Body temperature 96.49 [degF] Katie Yung MD Work Phone: [facility] 05-19-2024 09:24-0400 Body height 149.86 cm DO Jazmin Ball Work Phone: [facility] 05-19-2024 09:24-0400 Body mass index (BMI) [Ratio] 29.8 kg/m2 DO Jazmin Ball Work Phone: [facility] 05-19-2024 09:24-0400 Body weight 67 kg DO Jazmin Ball Work Phone: [facility] 05-08-2024 11:58-0400 Body height 149.86 cm DO Jazmin Ball Work Phone: [facility] 05-08-2024 11:58-0400 Body mass index (BMI) [Ratio] 29.7 kg/m2 DO Jazmin Ball Work Phone: [facility] 05-08-2024 11:58-0400 Body weight 66.84 kg DO Jazmin Ball Work Phone: [facility] 05-08-2024 11:58-0400 Diastolic blood pressure 82 mm[Hg] DO Jazmin Ball Work Phone: [facility] 05-08-2024 11:58-0400 Heart rate 88 /min DO Jazmin Ball Work Phone: [facility] 05-08-2024 11:58-0400 Respiratory rate 20 /min DO Jazmin Ball Work Phone: [facility] 05-08-2024 11:58-0400 SaO2% (BldA) [Mass fraction] 96 % DO Jazmin Ball Work Phone: [facility] 05-08-2024 11:58-0400 Systolic blood pressure 134 mm[Hg] DO Jazmin Ball Work Phone: [facility] 04-28-2024 11:55-0400 Body height 152.4 cm Maxwell Medrano MD Work Phone: [facility] 04-28-2024 11:55-0400 Diastolic blood pressure 70 mm[Hg] Maxwell Medrano MD Work Phone: [facility] 04-28-2024 11:55-0400 Heart rate 88 /min Maxwell Medrano MD Work Phone: [facility] 04-28-2024 11:55-0400 Systolic blood pressure 110 mm[Hg] Maxwell Medrano MD Work Phone: [facility] 04-24-2024 15:33-0400 Body height 152.4 cm Debbie Mac MD Work Phone: [facility] 04-24-2024 15:33-0400 Body mass index (BMI) [Ratio] 28.32 kg/m2 Debbie Mac MD Work Phone: [facility] 04-24-2024 15:33-0400 Body weight 65.77 kg Debbie Mac MD Work Phone: [facility] 04-24-2024 15:33-0400 Diastolic blood pressure 80 mm[Hg] Debbie Mac MD Work Phone: [facility] 04-24-2024 15:33-0400 Heart rate 114 /min Debbie Mac MD Work Phone: [facility] 04-24-2024 15:33-0400 Systolic blood pressure 112 mm[Hg] Debbie Mac MD Work Phone: [facility] 04-18-2024 10:09-040 Body height 149.86 cm DO Jazmin Ball Work Phone: [facility] 04-18-2024 10:090400 Body mass index (BMI) [Ratio] 28.8 kg/m2 DO Jazmin Ball Work Phone: [facility] 04-18-2024 [id number] Body weight 64.86 kg DO Jazmin Ball Work Phone: [facility] 04-18-2024 10:09-040 Diastolic blood pressure 77 mm[Hg] DO Jazmin Ball Work Phone: [facility] 04-18-2024 10:09-0400 Heart rate 75 /min DO Jazmin Ball Work Phone: [facility] 04-18-2024 10:09-0400 Systolic blood pressure 143 mm[Hg] DO Jazmin Ball Work Phone: [facility] 04-17-2024 10:43-0400 Body height 152.4 cm Maxwell Medrano MD Work Phone: [facility] 04-17-2024 10:43-0400 Body mass index (BMI) [Ratio] 28.59 kg/m2 Maxwell Medrano MD Work Phone: [facility] 04-17-2024 10:43-0400 Body weight 66.41 kg Maxwell Medrano MD Work Phone: [facility] 04-17-2024 10:43-0400 Diastolic blood pressure 62 mm[Hg] Maxwell Medrano MD Work Phone: [facility] 04-17-2024 10:43-0400 Heart rate 88 /min Maxwell Medrano MD Work Phone: [facility] 04-17-2024 10:43-0400 Systolic blood pressure 96 mm[Hg] Maxwell Medrano MD Work Phone: [facility] 04-08-2024 16:12-0400 Body height 149.86 cm DO Jazmin Ball Work Phone: [facility] 04-08-2024 16:12-0400 Body mass index (BMI) [Ratio] 30.5 kg/m2 DO Jazmin Ball Work Phone: [facility] 04-08-2024 16:12-0400 Body weight 68.6 kg DO Jazmin Ball Work Phone: [facility] 04-08-2024 16:12-0400 Diastolic blood pressure 70 mm[Hg] DO Jazmin Ball Work Phone: [facility] 04-08-2024 16:12-0400 Heart rate 87 /min DO Jazmin Ball Work Phone: [facility] 04-08-2024 16:12-0400 Respiratory rate 12 /min DO Jazmin Ball Work Phone: [facility] 04-08-2024 16:12-0400 Systolic blood pressure 114 mm[Hg] DO Jazmin Ball Work Phone: [facility] 02-28-2024 11:47-0400 Body height 149.9 cm Maxwell Medrano MD Work Phone: [facility] 02-28-2024 11:47-0400 Body mass index (BMI) [Ratio] 30.7 kg/m2 Maxwell Medrano MD Work Phone: [facility] 02-28-2024 11:47-0400 Body weight 68.95 kg Maxwell Medrano MD Work Phone: [facility] 02-28-2024 11:47-0400 Diastolic blood pressure 78 mm[Hg] Maxwell Medrano MD Work Phone: [facility] 02-28-2024 11:47-0400 Heart rate 95 /min Maxwell Medrano MD Work Phone: [facility] 02-28-2024 11:47-0400 Systolic blood pressure 110 mm[Hg] Maxwell Medrano MD Work Phone: [facility] 02-25-2024 14:27-0400 Body mass index (BMI) [Ratio] 30.86 kg/m2 Debbie Mac MD Work Phone: [facility] 02-25-2024 14:27-0400 Body weight 69.31 kg Debbie Mac MD Work Phone: [facility] 02-25-2024 14:27-0400 Diastolic blood pressure 80 mm[Hg] Debbie Mac MD Work Phone: [facility] 02-25-2024 14:27-0400 Heart rate 87 /min Debbie Mac MD Work Phone: [facility] 02-25-2024 14:27-0400 Systolic blood pressure 118 mm[Hg] Debbie Mac MD Work Phone: [facility] 02-15-2024 08:46-0400 Body height 149.86 cm DO Jazmin Ball Work Phone: [facility] 02-15-2024 08:46-0400 Body mass index (BMI) [Ratio] 30.9 kg/m2 DO Jazmin Ball Work Phone: [facility] 02-15-2024 08:46-0400 Body weight 69.45 kg DO Jazmin Ball Work Phone: [facility] 02-15-2024 08:46-0400 Diastolic blood pressure 89 mm[Hg] DO Jazmin Ball Work Phone: [facility] 02-15-2024 08:46-0400 Heart rate 97 /min DO Jazmin Ball Work Phone: [facility] 02-15-2024 08:46-0400 Respiratory rate 20 /min DO Jazmin Ball Work Phone: [facility] 02-15-2024 08:46-0400 SaO2% (BldA) [Mass fraction] 96 % DO Jazmin Ball Work Phone: [facility] 02-15-2024 08:46-0400 Systolic blood pressure 139 mm[Hg] DO Jazmin Ball Work Phone: [facility] 01-28-2024 15:25-0400 Body height 149.86 cm DO Jazmin Ball Work Phone: [facility] 01-28-2024 15:25-0400 Body mass index (BMI) [Ratio] 31.4 kg/m2 DO Jazmin Ball Work Phone: [facility] 01-28-2024 15:25-0400 Body weight 70.47 kg DO Jazmin Ball Work Phone: [facility] 01-28-2024 15:25-0400 Diastolic blood pressure 79 mm[Hg] DO Jazmin Ball Work Phone: [facility] 01-28-2024 15:25-0400 Heart rate 72 /min DO Jazmin Ball Work Phone: [facility] 01-28-2024 15:25-0400 Respiratory rate 20 /min DO Jazmin Ball Work Phone: [facility] 01-28-2024 15:25-0400 Systolic blood pressure 137 mm[Hg] DO Jazmin Ball Work Phone: [facility] 01-22-2024 12:46-0400 Body height 149.9 cm [facility]3] 01-22-2024 12:46-0400 Body mass index (BMI) [Ratio] 30.9 kg/m2 [facility] 01-22-2024 12:46-0400 Body weight 69.4 kg [facility]3] 01-22-2024 12:46-0400 Diastolic blood pressure 94 mm[Hg] [facility] 01-22-2024 12:46-0400 Heart rate 71 /min [facility]3] 01-22-2024 12:46-0400 Systolic blood pressure 134 mm[Hg] [facility] 01-20-2024 12:00-0400 Diastolic blood pressure 86 mm[Hg] DO Jazmin Ball Work Phone: [facility] 01-20-2024 12:00-0400 Heart rate 78 /min DO Jazmin Ball Work Phone: [facility] 01-20-2024 12:00-0400 Respiratory rate 18 /min DO Jazmin Ball Work Phone: [facility] 01-20-2024 12:00-0400 SaO2% (BldA) [Mass fraction] 96 % DO Jazmin Ball Work Phone: [facility] 01-20-2024 12:00-0400 Systolic blood pressure 128 mm[Hg] DO Jazmin Ball Work Phone: [facility] 01-20-2024 09:23-0400 Body temperature 97.9 [degF] DO Jazmin Ball Work Phone: [facility] 01-20-2024 06:00-0400 Body weight 70 kg DO Jazmin Ball Work Phone: [facility] 01-18-2024 21:55-0400 Body height 149.86 cm DO Jazmin Ball Work Phone: [facility] 01-18-2024 21:00-0400 Diastolic blood pressure 97 mm[Hg] DO Jazmin Ball Work Phone: [facility] 01-18-2024 21:00-0400 Heart rate 118 /min DO Jazmin Ball Work Phone: [facility] 01-18-2024 21:00-0400 Respiratory rate 18 /min DO Jazmin Ball Work Phone: [facility] 01-18-2024 21:00-0400 SaO2% (BldA) [Mass fraction] 95 % DO Jazmin Ball Work Phone: [facility] 01-18-2024 21:00-0400 Systolic blood pressure 138 mm[Hg] DO Jazmin Ball Work Phone: [facility] 01-18-2024 [id number] Body height 149.86 cm DO Jazmin Ball Work Phone: [facility] 01-18-2024 15:05-0400 Body temperature 97.8 [degF] DO Jazmin Ball Work Phone: [facility] 01-18-2024 15:05-0400 Body weight 69.9 kg DO Jazmin Ball Work Phone: [facility] 11-27-2023 [id number] Body height 160.02 cm DO Jazmin Ball Work Phone: [facility] 11-27-2023 15:07-0400 Body mass index (BMI) [Ratio] 29.1 kg/m2 DO Jazmin Ball Work Phone: [facility] 11-27-2023 15:07-0400 Body weight 74.61 kg DO Jazmin Ball Work Phone: [facility] 11-27-2023 15:07-0400 Diastolic blood pressure 83 mm[Hg] DO Jazmin Ball Work Phone: [facility] 11-27-2023 15:07-0400 Heart rate 116 /min DO Jazmin Ball Work Phone: [facility] 11-27-2023 15:07-0400 Respiratory rate 12 /min DO Jazmin Ball Work Phone: [facility] 11-27-2023 15:07-0400 Systolic blood pressure 135 mm[Hg] DO Jazmin Ball Work Phone: [facility] 09-19-2023 13:07-0500 Body height 149.9 cm Debbei Mac MD Work Phone: [facility] 09-19-2023 13:07-0500 Body mass index (BMI) [Ratio] 33.2 kg/m2 Debbie Mac MD Work Phone: [facility] 09-19-2023 13:07-0500 Body weight 74.57 kg Debbie Mac MD Work Phone: [facility] 09-19-2023 13:07-0500 Diastolic blood pressure 92 mm[Hg] Debbie Mac MD Work Phone: [facility] 09-19-2023 13:07-0500 Heart rate 91 /min Debbie Mac MD Work Phone: [facility] 09-19-2023 13:07-0500 Systolic blood pressure 126 mm[Hg] Debbie Mac MD Work Phone: [facility] 08-21-2023 13:27-0500 Body height 149.[address] 08-21-2023 13:27-0500 Body mass index (BMI) [Ratio] 33.33 kg/m2 [address] 08-21-2023 13:27-0500 Body weight 74.[address] 08-21-2023 13:27-0500 Diastolic blood pressure 64 mm[Hg] [address] 08-21-2023 13:27-0500 Systolic blood pressure 116 mm[Hg] [address] 08-19-2023 12:15-0500 Body height 160.02 cm Negin Garcia Other [employer] Other 05-31-2023 15:24-0400 Body height 149.9 cm Debbie Mac MD Work Phone: [facility] 05-31-2023 15:24-0400 Body mass index (BMI) [Ratio] 33.33 kg/m2 Debbie Mac MD Work Phone: [facility] 05-31-2023 15:24-0400 Body weight 74.84 kg Debbie Mac MD Work Phone: [facility] 05-31-2023 15:24-0400 Diastolic blood pressure 64 mm[Hg] Debbie Mac MD Work Phone: [facility] 05-31-2023 15:24-0400 Heart rate 70 /min Debbie Mac MD Work Phone: [facility] 05-31-2023 15:24-0400 Systolic blood pressure 122 mm[Hg] Debbie Mac MD Work Phone: [facility] 03-21-2023 15:00-0400 Body height 160.02 cm Jazmin Tyson Other [employer] Other 03-21-2023 15:00-0400 Body mass index (BMI) [Ratio] 28.62 kg/m2 Jazmin Ball Other [employer] Other 03-21-2023 15:00-0400 Body weight 73.3 kg Jazmin Ball Other [employer] Other 03-21-2023 15:00-0400 Diastolic blood pressure 79 mm[Hg] Jazmin Ball Other [employer] Other 03-21-2023 15:00-0400 Respiratory rate 12 /min Jazmin Ball Other [employer] Other 03-21-2023 15:00-0400 Systolic blood pressure 124 mm[Hg] Jazmin Ball Other [employer] Other 03-05-2023 14:42-0400 Diastolic blood pressure 76 mm[Hg] DO Jazmin Ball Work Phone: [facility] 03-05-2023 14:42-0400 Heart rate 92 /min DO Jazmin Ball Work Phone: [facility] 03-05-2023 14:42-0400 Inhaled oxygen flow rate 3 L/min DO Jazmin Ball Work Phone: [facility] 03-05-2023 14:42-0400 Respiratory rate 16 /min DO Jazmin Ball Work Phone: [facility] 03-05-2023 14:42-0400 SaO2% (BldA) [Mass fraction] 93 % DO Jazmin Ball Work Phone: [facility] 03-05-2023 14:42-0400 Systolic blood pressure 129 mm[Hg] DO Jazmin Ball Work Phone: [facility] 03-05-2023 13:48-0400 Body temperature 97 [degF] DO Jazmin Ball Work Phone: [facility] 03-05-2023 09:23-0400 Body height 149.86 cm DO Jazmin Ball Work Phone: [facility] 03-05-2023 09:23-0400 Body weight 73 kg DO Jazmin Ball Work Phone: [facility] 01-25-2023 13:09-0400 Body height 149.86 cm Jazmin E Ball Work Phone: [facility] Work Phone: 01-25-2023 13:09-0400 Body mass index (BMI) [Ratio] 32.52 kg/m2 Jazmin E Ball Work Phone: [facility] Work Phone: 01-25-2023 13:09-0400 Body surface area Derived from formula 1.68 m2 Jazmin E Ball Work Phone: [facility] Work Phone: 01-25-2023 13:09-0400 Body weight 73.03 kg Jazmin E Ball Work Phone: [facility] Work Phone: 01-25-2023 13:09-0400 Diastolic blood pressure 78 mm[Hg] Jazmin E Ball Work Phone: [facility] Work Phone: 01-25-2023 13:09-0400 Heart rate 72 /min Jazmin E Ball Work Phone: [facility] Work Phone: 01-25-2023 13:09-0400 Systolic blood pressure 126 mm[Hg] Jazmin E Ball Work Phone: [facility] Work Phone: 01-09-2023 17:07-0400 Diastolic blood pressure 98 mm[Hg] DO Jazmin Ball Work Phone: [facility] 01-09-2023 17:07-0400 Heart rate 70 /min DO Jazmin Ball Work Phone: [facility] 01-09-2023 17:07-0400 Respiratory rate 14 /min DO Jazmin Ball Work Phone: [facility] 01-09-2023 17:07-0400 SaO2% (BldA) [Mass fraction] 95 % DO Jazmin Ball Work Phone: [facility] 01-09-2023 17:07-0400 Systolic blood pressure 130 mm[Hg] DO Jazmin Ball Work Phone: [facility] 01-09-2023 10:54-0400 Body height 149.86 cm DO Jazmin Ball Work Phone: [facility] 01-09-2023 10:54-0400 Body temperature 98.6 [degF] DO Jazmin Ball Work Phone: [facility] 01-09-2023 10:54-0400 Body weight 73.2 kg DO Jazmin Ball Work Phone: [facility] 01-04-2023 14:23-0400 Body height 149.86 cm Jazmin E Ball Work Phone: [facility] Work Phone: 01-04-2023 14:23-0400 Body mass index (BMI) [Ratio] 32.52 kg/m2 Jazmin E Ball Work Phone: [facility] Work Phone: 01-04-2023 14:23-0400 Body surface area Derived from formula 1.68 m2 Jazmin E Ball Work Phone: [facility] Work Phone: 01-04-2023 14:23-0400 Body weight 73.03 kg Jazmin E Ball Work Phone: [facility] Work Phone: 01-04-2023 14:23-0400 Diastolic blood pressure 88 mm[Hg] Jazmin E Ball Work Phone: [facility] Work Phone: 01-04-2023 14:23-0400 Heart rate 76 /min Jazmin E Ball Work Phone: [facility] Work Phone: 01-04-2023 14:23-0400 Systolic blood pressure 128 mm[Hg] Jazmin E Ball Work Phone: [facility] Work Phone: 01-03-2023 14:05-0400 Body height 149.86 cm Jazmin E Ball Work Phone: [facility] Work Phone: 01-03-2023 14:05-0400 Body mass index (BMI) [Ratio] 33.12 kg/m2 Jazmin E Ball Work Phone: [facility] Work Phone: 01-03-2023 14:05-0400 Body surface area Derived from formula 1.69 m2 Jazmin E Ball Work Phone: [facility] Work Phone: 01-03-2023 14:05-0400 Body weight 74.39 kg Jazmin E Ball Work Phone: [facility] Work Phone: 01-03-2023 14:05-0400 Diastolic blood pressure 62 mm[Hg] Jazmin E Ball Work Phone: [facility] Work Phone: 01-03-2023 14:05-0400 Heart rate 70 /min Jazmin E Ball Work Phone: [facility] Work Phone: 01-03-2023 14:05-0400 Systolic blood pressure 118 mm[Hg] Jazmin E Ball Work Phone: [facility] Work Phone: 12-25-2022 13:41-0400 Diastolic blood pressure 84 mm[Hg] Jazmin E Ball Work Phone: [facility] Work Phone: 12-25-2022 13:41-0400 Heart rate 107 /min Jazmin E Ball Work Phone: [facility] Work Phone: 12-25-2022 13:41-0400 Respiratory rate 16 /min Jazmin E Ball Work Phone: [facility] Work Phone: 12-25-2022 13:41-0400 SaO2% (BldA) [Mass fraction] 96 % Jazmin E Ball Work Phone: [facility] Work Phone: 12-25-2022 13:41-0400 Systolic blood pressure 132 mm[Hg] Jazmin E Ball Work Phone: [facility] Work Phone: 11-27-2022 09:24-0400 Body height 149.86 cm DO Jazmin Ball Work Phone: [facility] 11-27-2022 09:24-0400 Body temperature 98 [degF] DO Jazmin Ball Work Phone: [facility] 11-27-2022 09:24-0400 Body weight 73 kg DO Jazmin Ball Work Phone: [facility] 11-27-2022 09:24-0400 Diastolic blood pressure 82 mm[Hg] DO Jazmin Ball Work Phone: [facility] 11-27-2022 09:24-0400 Heart rate 105 /min DO Jazmin Ball Work Phone: [facility] 11-27-2022 09:24-0400 Respiratory rate 18 /min DO Jazmin Ball Work Phone: [facility] 11-27-2022 09:24-0400 SaO2% (BldA) [Mass fraction] 97 % DO Jazmin Ball Work Phone: [facility] 11-27-2022 09:24-0400 Systolic blood pressure 136 mm[Hg] DO Jazmin Ball Work Phone: [facility] 10-24-2022 14:30-0500 Body height 160.02 cm Rachel Larios Other [employer] Other 10-24-2022 14:30-0500 Body mass index (BMI) [Ratio] 28.16 kg/m2 Rachel Larios Other [employer] Other 10-24-2022 14:30-0500 Body weight 72.12 kg Rachel Larios Other [employer] Other 10-24-2022 14:30-0500 Diastolic blood pressure 98 mm[Hg] Rachel Larios Other [employer] Other 10-24-2022 14:30-0500 SaO2% (BldA) [Mass fraction] 97 % Racheladams Larios Other [employer] Other 10-24-2022 14:30-0500 Systolic blood pressure 152 mm[Hg] Rachel Larios Other [employer] Other 10-13-2022 10:48-0500 Body height 149.86 cm Jazmin [email or web address] [email or web address] Work Phone: [email or web address] Work Phone: 10-13-2022 10:48-0500 Body mass index (BMI) [Ratio] 32.11 kg/m2 Jazmin Jovani Ball Work Phone: [employer] DO Work Phone: 10-13-2022 10:48-0500 Body surface area Derived from formula 1.67 m2 Jazmin Jovani Ball Work Phone: [facility] [employer] DO Work Phone: 10-13-2022 10:48-0500 Body weight 72.12 kg Jazmin E Ball Work Phone: NP [employer] DO Work Phone: 10-13-2022 10:48-0500 Diastolic blood pressure 66 mm[Hg] Jazmin Hahn Ball Work Phone: [employer] DO Work Phone: 10-13-2022 10:48-0500 Heart rate 72 /min Jazmin E Ball Work Phone: [facility] 250 DO Work Phone: 10-13-2022 10:48-0500 Systolic blood pressure 98 mm[Hg] Jazmin E Ball Work Phone: [facility] 250 DO Work Phone: 09-27-2022 13:36-0500 Body height 149.86 cm Jazmin E Ball Work Phone: [facility] 250 DO Work Phone: 09-27-2022 13:36-0500 Body mass index (BMI) [Ratio] 31.91 kg/m2 Jazmin E Ball Work Phone: [facility] 250 DO Work Phone: 09-27-2022 13:36-0500 Body surface area Derived from formula 1.67 m2 Jazmin E Ball Work Phone: [facility] 250 DO Work Phone: 09-27-2022 13:36-0500 Body weight 71.67 kg Jazmin E Ball Work Phone: [facility] 250 DO Work Phone: 09-27-2022 13:36-0500 Diastolic blood pressure 86 mm[Hg] Jazmin E Ball Work Phone: [facility] 250 DO Work Phone: 09-27-2022 13:36-0500 Heart rate 70 /min Jazmin E Ball Work Phone: [facility] 250 DO Work Phone: 09-27-2022 13:36-0500 Systolic blood pressure 122 mm[Hg] Jazmin E Ball Work Phone: [phone] [place] [address] [facility] 250 DO Work Phone: 09-21-2022 16:34-0500 Body temperature 97.8 [degF] DO Jazmin Ball Work Phone: [facility] 09-21-2022 16:34-0500 Diastolic blood pressure 77 mm[Hg] DO Jazmin Ball Work Phone: [facility] 09-21-2022 16:34-0500 Heart rate 68 /min DO Jazmin Ball Work Phone: [facility] 09-21-2022 16:34-0500 Respiratory rate 18 /min DO Jazmin Ball Work Phone: [facility] 09-21-2022 16:34-0500 SaO2% (BldA) [Mass fraction] 96 % DO Jazmin Ball Work Phone: [facility] 09-21-2022 16:34-0500 Systolic blood pressure 134 mm[Hg] DO Jazmin Ball Work Phone: [facility] 09-21-2022 06:00-0500 Body weight 73.2 kg DO Jazmin Ball Work Phone: [facility] 09-17-2022 15:30-0500 Diastolic blood pressure 81 mm[Hg] DO Jazmin Ball Work Phone: [facility] 09-17-2022 15:30-0500 Heart rate 75 /min DO Jazmin Ball Work Phone: [facility] 09-17-2022 15:30-0500 Respiratory rate 16 /min DO Jazmin Ball Work Phone: [facility] 09-17-2022 15:30-0500 SaO2% (BldA) [Mass fraction] 96 % DO Jazmin Ball Work Phone: [facility] 09-17-2022 15:30-0500 Systolic blood pressure 139 mm[Hg] DO Jazmin Ball Work Phone: [facility] 09-17-2022 14:00-0500 Body height 149.86 cm DO Jazmin Ball Work Phone: [facility] 09-17-2022 14:00-0500 Body weight 72.1 kg DO Jazmin Ball Work Phone: [facility] 09-17-2022 13:00-0500 Body temperature 97.8 [degF] DO Jazmin Ball Work Phone: [facility] 09-12-2022 16:00-0500 Body height 160.02 cm Jazmin Ball Other [facility] [employer] Other 09-12-2022 16:00-0500 Body mass index (BMI) [Ratio] 28.02 kg/m2 Jazmin Ball Other [facility] [employer] Other 09-12-2022 16:00-0500 Body weight 71.76 kg Jazmin Ball Other [facility] [employer] Other 09-12-2022 16:00-0500 Diastolic blood pressure 76 mm[Hg] Jazmin Ball Other [facility] [employer] Other 09-12-2022 16:00-0500 Respiratory rate 12 /min Jazmin Ball Other [facility] [employer] Other 09-12-2022 16:00-0500 SaO2% (BldA) [Mass fraction] 97 % Jazmin Ball Other [facility] [employer] Other 09-12-2022 16:00-0500 Systolic blood pressure 132 mm[Hg] Jazmin Ball Other [employer] Other 09-06-2022 07:32-0500 Body temperature 97 [degF] DO Jazmin Ball Work Phone: [facility] 09-06-2022 07:32-0500 Diastolic blood pressure 83 mm[Hg] DO Jazmin Ball Work Phone: [facility] 09-06-2022 07:32-0500 Heart rate 92 /min DO Jazmin Ball Work Phone: [facility] 09-06-2022 07:32-0500 Respiratory rate 18 /min DO Jazmin Ball Work Phone: [facility] 09-06-2022 07:32-0500 SaO2% (BldA) [Mass fraction] 94 % DO Jazmin Ball Work Phone: [facility] 09-06-2022 07:32-0500 Systolic blood pressure 141 mm[Hg] DO Jazmin Ball Work Phone: [facility] 09-06-2022 06:00-0500 Body weight 70.1 kg DO Jazmin Ball Work Phone: [facility] 09-04-2022 14:04-0500 Body height 149.86 cm DO Jazmin Ball Work Phone: [facility] 09-04-2022 12:21-0500 40 1 Jazmin E Ball Work Phone: [facility] 250 DO Work Phone: Comment on above: [id number] 09-01-2022 22:47-0500 Diastolic blood pressure 85 mm[Hg] DO Jazmin Ball Work Phone: [facility] 09-01-2022 22:47-0500 Heart rate 98 /min DO Jazmin Ball Work Phone: [facility] 09-01-2022 22:47-0500 Systolic blood pressure 151 mm[Hg] DO Jazmin Ball Work Phone: [facility] 09-01-2022 22:30-0500 Respiratory rate 26 /min DO Jazmin Ball Work Phone: [facility] 09-01-2022 22:30-0500 SaO2% (BldA) [Mass fraction] 98 % DO Jazmin Ball Work Phone: [facility] 09-01-2022 12:07-0500 Body height 149.86 cm DO Jazmin Ball Work Phone: [facility] 09-01-2022 12:07-0500 Body temperature 98.3 [degF] DO Jazmin Ball Work Phone: [facility] 09-01-2022 12:07-0500 Body weight 73 kg DO Jazmin Ball Work Phone: [facility] 08-24-2022 10:03-0500 Body height 149.86 cm Jazmin Hahn Ball Work Phone: [facility] 250 DO Work Phone: 08-24-2022 10:03-0500 Body mass index (BMI) [Ratio] 32.92 kg/m2 Jazmin Hahn Ball Work Phone: [facility] 250 DO Work Phone: 08-24-2022 10:03-0500 Body surface area Derived from formula 1.69 m2 Jazmin Hahn Ball Work Phone: [facility] 250 DO Work Phone: 08-24-2022 10:03-0500 Body weight 73.94 kg Jazmin Hahn Ball Work Phone: [facility] 250 DO Work Phone: 08-24-2022 10:03-0500 Diastolic blood pressure 98 mm[Hg] Jazmin Hahn Ball Work Phone: [facility] 250 DO Work Phone: 08-24-2022 10:03-0500 Heart rate 112 /min Jazmin E Ball Work Phone: [facility] 250 DO Work Phone: 08-24-2022 10:03-0500 Systolic blood pressure 132 mm[Hg] Jazmin E Ball Work Phone: [facility] 250 DO Work Phone: 06-26-2022 14:26-0500 Body height 149.86 cm Jazmin Hahn Ball Work Phone: [facility] 250 DO Work Phone: 06-26-2022 14:26-0500 Body mass index (BMI) [Ratio] 32.92 kg/m2 Jazmin E Ball Work Phone: [facility] [employer] 250 DO Work Phone: 06-26-2022 14:26-0500 Body surface area Derived from formula 1.69 m2 Jazmin E Ball Work Phone: [facility] 250 DO Work Phone: 06-26-2022 14:26-0500 Body weight 73.94 kg Jazmin E Ball Work Phone: [facility] [employer] 250 DO Work Phone: 06-26-2022 14:26-0500 Diastolic blood pressure 70 mm[Hg] Jazmin E Ball Work Phone: [facility] 250 DO Work Phone: 06-26-2022 14:26-0500 Heart rate 71 /min Jazmin Hahn Ball Work Phone: [facility] 250 DO Work Phone: 06-26-2022 14:26-0500 Systolic blood pressure 132 mm[Hg] Jazmin Hahn Ball Work Phone: [facility] [employer] [facility] 250 DO Work Phone: 04-27-2022 14:30-0400 Body height 160.02 cm John Mims Other [employer] Other 04-27-2022 14:30-0400 Body mass index (BMI) [Ratio] 27.45 kg/m2 John Mims Other [employer] Other 04-27-2022 14:30-0400 Body weight 70.31 kg John Mims Other [facility] [employer] Other 03-10-2022 10:53-0400 Diastolic blood pressure 82 mm[Hg] Jazmin E Ball Work Phone: [facility] 250 DO Work Phone: 03-10-2022 10:53-0400 Systolic blood pressure 126 mm[Hg] Jazmin E Ball Work Phone: [facility] 250 DO Work Phone: 03-10-2022 10:19-0400 Body height 149.86 cm Jazmin E Ball Work Phone: [facility] 250 DO Work Phone: 03-10-2022 10:19-0400 Body mass index (BMI) [Ratio] 31.91 kg/m2 Jazmin E Ball Work Phone: [facility] [employer] 250 DO Work Phone: 03-10-2022 10:19-0400 Body surface area Derived from formula 1.67 m2 Jazmin E Ball Work Phone: [facility] [employer] 250 DO Work Phone: 03-10-2022 10:19-0400 Body weight 71.67 kg Jazmin E Ball Work Phone: [facility] 250 DO Work Phone: 03-10-2022 10:19-0400 Diastolic blood pressure 80 mm[Hg] Jazmin E Ball Work Phone: [facility] 250 DO Work Phone: 03-10-2022 10:19-0400 Heart rate 78 /min Jazmin E Ball Work Phone: [facility] 250 DO Work Phone: 03-10-2022 10:19-0400 Systolic blood pressure 146 mm[Hg] Jazmin E Ball Work Phone: [facility] [employer] 250 DO Work Phone: 02-28-2022 15:45-0400 Body height 160.02 cm John Mims Other [facility] [employer] Other 02-28-2022 15:45-0400 Body mass index (BMI) [Ratio] 27.45 kg/m2 John Mims Other [facility] [employer] Other 02-28-2022 15:45-0400 Body weight 70.31 kg John Mims Other [facility] [employer] Other 02-28-2022 15:32-0400 Body weight 0 kg DO Jazmin Ball Work Phone: [facility] 12-15-2021 08:46-0400 Body weight 0 kg DO Jazmin Ball Work Phone: [facility] 10-19-2021 16:04-0500 Body height 149.86 cm Jazmin E Ball Work Phone: [facility] [employer] 250 DO Work Phone: 10-19-2021 16:04-0500 Body mass index (BMI) [Ratio] 29.13 kg/m2 Jazmin E Ball Work Phone: [facility] [employer] 250 DO Work Phone: 10-19-2021 16:04-0500 Body surface area Derived from formula 1.6 m2 Jazmin E Ball Work Phone: [facility] [employer] 250 DO Work Phone: 10-19-2021 16:04-0500 Body weight 65.41 kg Jazmin E Ball Work Phone: [facility] [employer] 250 DO Work Phone: 10-19-2021 16:04-0500 Diastolic blood pressure 76 mm[Hg] Jazmin E Ball Work Phone: [facility] 250 DO Work Phone: 10-19-2021 16:04-0500 Heart rate 70 /min Jazmin E Ball Work Phone: [facility] 250 DO Work Phone: 10-19-2021 16:04-0500 Systolic blood pressure 110 mm[Hg] Jazmin E Ball Work Phone: [facility] 250 DO Work Phone: 07-26-2021 14:31-0500 Body height 149.86 cm Jazmin E Ball Work Phone: [facility] 250 DO Work Phone: 07-26-2021 14:31-0500 Body mass index (BMI) [Ratio] 29.49 kg/m2 Jazmin E Ball Work Phone: [facility] 250 DO Work Phone: 07-26-2021 14:31-0500 Body surface area Derived from formula 1.61 m2 Jazmin E Ball Work Phone: [facility] 250 DO Work Phone: 07-26-2021 14:31-0500 Body weight 66.23 kg Jazmin E Ball Work Phone: [facility] 250 DO Work Phone: 07-26-2021 14:31-0500 Diastolic blood pressure 80 mm[Hg] Jazmin E Ball Work Phone: [facility] 250 DO Work Phone: 07-26-2021 14:31-0500 Heart rate 70 /min Jazmin E Ball Work Phone: [facility] 250 DO Work Phone: 07-26-2021 14:31-0500 Systolic blood pressure 124 mm[Hg] Jazmin Hahn Ball Work Phone: [facility] 250 DO Work Phone: 07-06-2021 15:54-0500 Body height 149.86 cm Jazmin E Ball Work Phone: [facility] 250 DO Work Phone: 07-06-2021 15:54-0500 Body mass index (BMI) [Ratio] 28.48 kg/m2 Jazmin Hahn Ball Work Phone: [facility] 250 DO Work Phone: 07-06-2021 15:54-0500 Body surface area Derived from formula 1.59 m2 Jazmin E Ball Work Phone: [facility] 250 DO Work Phone: 07-06-2021 15:54-0500 Body temperature 97.2 [degF] Jazmin Hahn Ball Work Phone: [facility] 250 DO Work Phone: 07-06-2021 15:54-0500 Body weight 63.96 kg Jazmin Hahn Ball Work Phone: [facility] 250 DO Work Phone: 07-06-2021 15:54-0500 Diastolic blood pressure 49 mm[Hg] Jazmin Hahn Ball Work Phone: [facility] 250 DO Work Phone: 07-06-2021 15:54-0500 Heart rate 73 /min Jazmin E Ball Work Phone: [facility] 250 DO Work Phone: 07-06-2021 15:54-0500 Systolic blood pressure 95 mm[Hg] Jazmin E Ball Work Phone: [facility] 250 DO Work Phone: 06-30-2021 00:00-0500 0 1 Jazmin E Ball Work Phone: [facility] 250 DO Work Phone: Comment on above: [id number] 06-06-2021 15:33-0400 Body height 152.4 cm Jazmin E Ball Work Phone: [facility] 250 DO Work Phone: 06-06-2021 15:33-0400 Body mass index (BMI) [Ratio] 28.12 kg/m2 Jazmin E Ball Work Phone: [facility] 250 DO Work Phone: 06-06-2021 15:33-0400 Body surface area Derived from formula 1.62 m2 Jazmin E Ball Work Phone: [facility] 250 DO Work Phone: 06-06-2021 15:33-0400 Body weight 65.32 kg Jazmin E Ball Work Phone: [facility] 250 DO Work Phone: 06-06-2021 15:33-0400 Diastolic blood pressure 64 mm[Hg] Jazmin E Ball Work Phone: [facility] 250 DO Work Phone: 06-06-2021 15:33-0400 Heart rate 110 /min Jazmin E Ball Work Phone: [facility] 250 DO Work Phone: 06-06-2021 15:33-0400 Systolic blood pressure 88 mm[Hg] Jazmin E Ball Work Phone: [facility] 250 DO Work Phone: Encounters Encounter Date Encounter Type Care Provider Facility Start: 05-01-2025 End: 05-01-2025 Patient encounter status [address] Start: 05-01-2025 End: 05-01-2025 Subsequent hospital visit by physician Chanell [address] [facility] Comment on above: Pre-op testing Start: 04-30-2025 End: 04-30-2025 ambulatory JOSEPH SEPULVEDA Not Available Start: 04-30-2025 End: 04-30-2025 Office outpatient visit 15 minutes Joseph Sepulveda DPM Work Phone: [facility] Comment on above: Cellulitis of left f oot (Primary Dx); Pain due to onychomycosis of toenails of both feet; Acquired deformity of left toe; Acquired deformity of right toe; Foot ulcer, left, with fat layer exposed (HCC) Start: 04-30-2025 End: 04-30-2025 Bamboo flowsheet Joseph Sepulveda DPM Work Phone: [facility] Start: 04-30-2025 End: 04-30-2025 Bamboo flowsheet Joseph Sepulveda DPM Work Phone: [facility] Start: 04-28-2025 ambulatory JAZMIN العلي [facility] Start: 04-28-2025 End: 04-28-2025 ambulatory [facility] Start: 03-02-2025 ambulatory [facility] Start: 02-23-2025 End: 02-23-2025 Office outpatient visit 40 minutes Cristiana Chapa [employer]ER [employer] Work Phone: [facility] Comment on above: High risk medication use (Primary Dx); Essential hypertension, benign; Pacemaker; Persistent atrial fibrillation (Multi); Anticoagulated; Shortness of breath Start: 02-23-2025 End: 02-23-2025 ambulatory CRISTIANA CHAPA [facility] Start: 02-12-2025 End: 02-12-2025 Xiangboo flowssilvia Sepulveda DPM Work Phone: [facility] Start: 02-12-2025 End: 02-12-2025 Bamboo flowssilvia Sepulveda DPM Work Phone: [facility] Start: 02-12-2025 End: 02-12-2025 Office outpatient new 30 minutes Joseph Sepulveda DPM Work Phone: [facility] Comment on above: Acquired deformity o f left toe (Primary Dx); Acquired deformity of right toe; Pain due to onychomycosis of toenails of both feet Start: 02-12-2025 End: 02-12-2025 ambulatory JOSEPH SEPULVEDA Not Available Start: 01-30-2025 End: 01-30-2025 ambulatory [facility] Start: 01-30-2025 End: 01-30-2025 Subsequent hospital visit by physician Chanell [facility] Comment on above: Pacemaker Start: 01-22-2025 End: 01-23-2025 ambulatory [facility] Facility:[facility] Start: 01-22-2025 End: 01-23-2025 Evaluation and management of inpatient Jazmin العلي DO Work Phone: [facility] [place] [facility] Work Phone: Start: 01-22-2025 End: 01-23-2025 observation encounter Jazmin العلي DO Work Phone: [facility] Work Phone: Start: 01-21-2025 End: 01-21-2025 ambulatory [facility] Work Phone: Start: 01-21-2025 End: 01-21-2025 Patient encounter procedure [facility] Work Phone: Start: 01-21-2025 Non-patient / Non-visit [facility] Work Phone: Start: 01-09-2025 End: 01-09-2025 ambulatory [facility] Work Phone: Start: 01-09-2025 End: 01-09-2025 Patient encounter procedure [facility] Work Phone: Start: 01-06-2025 End: 01-06-2025 Telemedicine consultation with patient Nigel El MD Work Phone: [facility] Comment on above: History of repair of hiatal hernia (Primary Dx) Start: 01-06-2025 End: 01-06-2025 ambulatory NIGEL EL Facility:[facility] Start: 12-31-2024 End: 12-31-2024 Telemedicine consultation with patient Nigel El MD Work Phone: [facility] Comment on above: NO SHOW (Primary Dx) Start: 12-31-2024 ambulatory NIGEL EL Facil ity:[facility] Start: 12-30-2024 End: 12-30-2024 Telemedicine consultation with patient Nigel El MD Work Phone: [facility] Comment on above: History of repair of hiatal hernia (Primary Dx); NO SHOW Start: 12-30-2024 ambulatory NIGEL EL Facil ity:[facility] Start: 12-11-2024 End: 12-11-2024 Telephone encounter Nigel El MD Work Phone: [facility] Start: 12-08-2024 End: 12-08-2024 ambulatory NIGEL EL Facility:[facility] Start: 12-08-2024 End: 12-08-2024 Subsequent hospital visit by physician Nigel El MD Work Phone: [facility] Comment on above: Diaphragmatic hernia without obstruction or gangrene (Primary Dx); Hiatal hernia; Gastroesophageal reflux disease without esophagitis Start: 11-26-2024 End: 11-26-2024 Orders Only Nigel El MD Work Phone: [facility] Start: 11-25-2024 End: 11-25-2024 ambulatory Bonnie Clarke RN [facility] Comment on above: Heartburn Start: 11-21-2024 End: 11-21-2024 Admission to same day surgery center Katie Yung MD Work Phone: [facility] Start: 11-12-2024 End: 11-14-2024 ambulatory KATIE YUNG Facility:[facility] Start: 11-11-2024 End: 11-11-2024 ambulatory Bonnie Clarke RN [facility] Comment on above: Food getting stuck i n throat; Swallowing problems Start: 10-23-2024 End: 10-23-2024 Office outpatient visit 40 minutes Maxwell eMdrano MD Work Phone: [facility] Comment on above: Pacemaker; Sick sinus syndrome (Multi); Persistent atrial fibrillation (Multi); High risk medication use; 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 (Multi); Essential hypertension, benign; Chronic diastolic heart failure; BMI 27.0-27.9,adult; Never smoked tobacco Start: 10-23-2024 End: 10-23-2024 ambulatory MAXWELL MEDRANO [facility] Start: 10-13-2024 End: 10-13-2024 ambulatory Yesica Astudillo MD Facility: [facility] Start: 10-06-2024 Patient encounter procedure [facility] Start: 10-06-2024 End: 10-06-2024 ambulatory Jazmin Tyson DO Work Phone: [facility] Work Phone: Start: 10-06-2024 End: 10-06-2024 Patient encounter procedure Jazmin Ball DO Work Phone: [facility] Work Phone: Start: 10-01-2024 Non-patient / Non-visit Benjskip in Ball DO Work Phone: [facility] Work Phone: Start: 09-12-2024 End: 09-12-2024 Emergency department patient visit Jazmin العلي DO Work Phone: [facility]-Emergency Room Work Phone: Start: 09-11-2024 End: 09-11-2024 Patient encounter procedure Jazmin العلي DO Work Phone: [facility] Work Phone: Start: 09-11-2024 End: 09-11-2024 ambulatory Jazmin Ball DO Work Phone: [facility] Work Phone: Start: 09-09-2024 End: 09-09-2024 ambulatory Jazmin Ball DO Work Phone: [facility] Work Phone: Start: 09-09-2024 End: 09-09-2024 Patient encounter procedure Jazmin العلي DO Work Phone: [facility] Work Phone: Start: 09-08-2024 End: 09-08-2024 ambulatory [facility] Start: 09-08-2024 End: 09-08-2024 Subsequent hospital visit by physician Chanell [facility] Comment on above: Pacemaker; Sick sinus syndrome (Multi) Start: 09-05-2024 End: 09-05-2024 Patient encounter procedure Jazmin العلي DO Work Phone: [facility] Work Phone: Start: 09-05-2024 End: 09-05-2024 ambulatory Jazmin العلي DO Work Phone: [facility] Work Phone: Start: 09-05-2024 End: 09-05-2024 Office outpatient visit 25 minutes Debbie Mac MD Work Phone: [facility] Comment on above: Persistent atrial fi brillation (Multi) (Primary Dx); Atrial flutter, unspecified type (Multi); High risk medication use; Single vessel coronary artery disease; 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 (Multi); Pacemaker; Mixed hyperlipidemia; Essential hypertension, benign; Chronic diastolic heart failure; Anticoagulated; BMI 28.0-28.9,adult; Stage 3a chronic kidney disease (Multi); Shortness of breath; Never smoked any substance Start: 09-05-2024 End: 09-05-2024 ambulatory [facility] Start: 09-01-2024 End: 09-01-2024 ambulatory Yesica Astudillo MD Facility: [facility] Start: 08-27-2024 End: 08-27-2024 ambulatory Jazmin Tyson MORENO Work Phone: [facility] Work Phone: Start: 08-27-2024 End: 08-27-2024 Patient encounter procedure Jazmin العلي DO Work Phone: [facility] Physician [facility] Work Phone: Start: 08-18-2024 End: 08-18-2024 ambulatory KATIE YUNG Facility:[facility] Start: 08-18-2024 End: 08-18-2024 Phys/qhp telephone evaluation 11-20 min Katie Yung MD Work Phone: [facility] Comment on above: Esophageal dysphagia (Primary Dx) Start: 08-04-2024 End: 08-04-2024 ambulatory Yesica Astudillo MD Facility: [facility] Start: 07-31-2024 End: 07-31-2024 Patient encounter procedure Jazmin Tyson MROENO Work Phone: [facility] Work Phone: Start: 07-28-2024 End: 07-28-2024 Office outpatient visit 40 minutes Maxwell Medrano MD Work Phone: [facility] Comment on above: Pacemaker; Persistent atrial fibrillation (Multi); Essential hypertension, benign; Diastolic heart failure, unspecified HF chronicity; High risk medication use; BMI 28.0-28.9,adult; 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 (Multi); Sinus bradycardia; Never smoked any substance; Anticoagulated Start: 07-28-2024 End: 07-28-[address] [facility] Start: 07-23-2024 Non-patient / Non-visit Benjam in Ball DO Work Phone: [facility] Work Phone: Start: 07-22-2024 End: 07-22-2024 Telemedicine consultation with patient Katie Yung MD Work Phone: [facility] Comment on above: NO SHOW (Primary Dx) Start: 07-22-2024 ambulatory KATIE YUNG [facility] [facility] Start: 07-21-2024 Non-patient / Non-visit Benjam in Ball DO Work Phone: [facility] Physician [facility] ER Work Phone: Start: 07-21-2024 End: 07-24-2024 Evaluation and management of inpatient Jazmin Ball DO Work Phone: [facility] [place] [facility] Work Phone: Start: 07-21-2024 End: 07-28-2024 ambulatory Katie Yung MD Work Phone: [facility] Comment on above: Update Start: 07-21-2024 Non-patient / Non-visit Benjam in Ball DO Work Phone: [facility] Physician [facility] Work Phone: Start: 07-09-2024 End: 07-09-2024 ambulatory Jazmin Ball DO Work Phone: [facility] Work Phone: Start: 07-09-2024 End: 07-09-2024 Patient encounter procedure Jazmin Ball DO Work Phone: [facility] Physician Group-[facility] Work Phone: Start: 07-07-2024 End: 07-07-2024 ambulatory [facility] Start: 07-02-2024 Non-patient / Non-visit Benjam in Ball DO Work Phone: [facility] Physician Group-[facility] Work Phone: Start: 07-02-2024 Non-patient / Non-visit Kaveh in Tyson DO Work Phone: [facility] Physician Group-[facility] Start: 07-01-2024 Non-patient / Non-visit Benjam in Tyson DO Work Phone: [facility] Physician Group-[facility] Start: 06-30-2024 End: 07-03-2024 Evaluation and management of inpatient Jazmin العلي DO Work Phone: [facility] [place] [facility] Work Phone: Start: 06-26-2024 End: 06-26-2024 ambulatory KATIE YUNG Facility:[facility] Start: 06-26-2024 End: 06-26-2024 Subsequent hospital visit by physician Cassia Ip/Op Flouro 1 [facility] Radiology Department Comment on above: Esophageal dysphagia Start: 06-11-2024 End: 06-23-2024 Telephone encounter Katie Yung MD Work Phone: [facility] Comment on above: Health Information Start: 06-10-2024 End: 06-10-2024 ambulatory DO Jazmin العلي Work Phone: [facility] Work Phone: Start: 06-10-2024 End: 06-10-2024 Patient encounter procedure DO Jazmin العلي Work Phone: [facility] Physician [facility] Work Phone: Start: 06-05-2024 End: 06-05-2024 Office outpatient visit 40 minutes Maxwell Medrano MD Work Phone: [facility] Medical Office Building Comment on above: Pacemaker; Persistent atrial fibrillation (Multi); Essential hypertension, benign; Diastolic heart failure, unspecified HF chronicity; High risk medication use; BMI 28.0-28.9,adult; 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 (Multi); Sinus bradycardia; Never smoked any substance Start: 06-05-2024 End: 06-05-2024 ambulatory MAXWELL MEDRANO [facility] Ambulatory Start: 05-29-2024 End: 05-29-2024 ambulatory KATIE YUNG Facility:[facility] Start: 05-29-2024 End: 05-29-2024 Subsequent hospital visit by physician Katie Yung MD Work Phone: [facility] Comment on above: Esophageal dysphagia (Primary Dx) Start: 05-28-2024 Non-patient / Non-visit DO Johnson العلي Work Phone: [facility] Physician [facility] Work Phone: Start: 05-19-2024 End: 05-19-2024 ambulatory DO Jazmin العلي Work Phone: [facility] Work Phone: Start: 05-19-2024 End: 05-19-2024 Patient encounter procedure DO Jazmin Tyson Work Phone: [facility] Gastroenterology Work Phone: Start: 05-15-2024 End: 05-15-2024 Orders Only Katie Yung MD Work Phone: [facility] Start: 05-08-2024 End: 05-08-2024 ambulatory DO Jazmin العلي Work Phone: [facility] Work Phone: Start: 05-08-2024 End: 05-08-2024 Patient encounter procedure DO Jazmin العلي Work Phone: [facility] Physician [facility] Work Phone: Start: 04-28-2024 End: 04-28-2024 Office outpatient visit 40 minutes Maxwell Medrano MD Work Phone: [facility] Medical Office Building Comment on above: Pacemaker (Primary D x); Persistent atrial fibrillation (Multi); Essential hypertension, benign; Diastolic heart failure, unspecified HF chronicity (Multi); High risk medication use; BMI 28.0-28.9,adult; 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 (Multi); Sinus bradycardia; Never smoked any substance Start: 04-24-2024 End: 04-24-2024 Office outpatient visit 25 minutes Debbie Mac MD Work Phone: [facility] Comment on above: Atrial flutter, unsp ecified type (Multi) (Primary Dx); Essential hypertension, benign; Chronic diastolic heart failure (Multi); Mixed hyperlipidemia; Sinus bradycardia; Single vessel coronary artery disease; Anticoagulated; Shortness of breath; Never smoked any substance; BMI 28.0-28.9,adult Start: 04-24-2024 End: 04-24-2024 Patient encounter procedure DO Jazmin العلي Work Phone: [facility] [place] Work Phone: Start: 04-24-2024 End: 04-24-2024 ambulatory DO Jazmin [email or web address] Work Phone: [facility] Work Phone: Start: 04-18-2024 End: 04-18-2024 ambulatory DO Jazmin [email or web address] Work Phone: [facility] Work Phone: Start: 04-18-2024 End: 04-18-2024 Patient encounter procedure DO Jazmin [email or web address] Work Phone: [facility] Physician Group-[facility] Gastroenterology Work Phone: Start: 04-17-2024 End: 04-17-2024 Office outpatient visit 40 minutes Maxwell Medrano MD Work Phone: [facility] Office Building Comment on above: High risk medication use (Primary Dx); Pacemaker; Anticoagulation management encounter; Longstanding persistent atrial fibrillation (Multi); Sinus bradycardia; BMI 28.0-28.9,adult; Never smoked any substance Start: 04-08-2024 End: 04-08-2024 ambulatory DO Jazmin Tyson Work Phone: [facility] Work Phone: Start: 04-08-2024 End: 04-08-2024 Patient encounter procedure DO Jazmin Tyson Work Phone: [facility] Work Phone: Start: 04-07-2024 End: 04-07-2024 ambulatory Andrius Vytautas Giedraitis MD Facility: [facility] Start: 03-31-2024 Non-patient / Non-visit DO Johnson العلي Work Phone: [facility] Work Phone: Start: 03-21-2024 Evaluation and management of inpatient [facility] Start: 03-21-2024 Non-patient / Non-visit DO Johnson العلي Work Phone: [facility] Work Phone: Start: 03-21-2024 Non-patient / Non-visit DO Johnson العلي Work Phone: [facility] Work Phone: Start: 02-28-2024 End: 02-28-2024 Office outpatient visit 40 minutes Maxwell Medrano MD Work Phone: [facility] Comment on above: High risk medication use (Primary Dx); Diastolic heart failure, unspecified HF chronicity (Multi); Abnormal EKG; Anticoagulation management encounter; Longstanding persistent atrial fibrillation (Multi); Sinus bradycardia; Pacemaker; BMI 30.0-30.9,adult; Never smoked tobacco Start: 02-25-2024 End: 02-25-2024 Office outpatient visit 40 minutes Debbie Mac MD Work Phone: [facility] Comment on above: Atrial flutter, unsp ecified type (Multi) (Primary Dx); Persistent atrial fibrillation (Multi); High risk medication use; Anticoagulated; Chronic diastolic heart failure (Multi); Single vessel coronary artery disease; 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 (Multi); Pacemaker; Essential hypertension, benign; Mixed hyperlipidemia; Gallstones; Stage 3a chronic kidney disease (Multi); Shortness of breath; BMI 30.0-30.9,adult Start: 02-18-2024 End: 02-18-2024 ambulatory DO Jazmin العلي Work Phone: [facility] Work Phone: Start: 02-18-2024 End: 02-18-2024 Patient encounter procedure DO Jazmin العلي Work Phone: [facility]-CT Scan [place] Work Phone: Start: 02-15-2024 End: 02-15-2024 ambulatory DO Jazmin Ball Work Phone: [facility] Work Phone: Start: 02-15-2024 End: 02-15-2024 Patient encounter procedure DO Jazmin العلي Work Phone: [facility] Work Phone: Start: 02-08-2024 Non-patient / Non-visit DO Johnson العلي Work Phone: [facility] OutPt Work Phone: Start: 02-08-2024 Non-patient / Non-visit DO Johnson العلي Work Phone: [facility] Work Phone: Start: 02-07-2024 Non-patient / Non-visit DO Johnson العلي Work Phone: [facility] Work Phone: Start: 02-07-2024 Non-patient / Non-visit DO Johnson العلي Work Phone: [facility] Work Phone: Start: 01-28-2024 End: 01-28-2024 ambulatory DO Jazmin العلي Work Phone: [facility] Work Phone: Start: 01-28-2024 End: 01-28-2024 Patient encounter procedure DO Jazmin العلي Work Phone: [facility] Work Phone: Start: 01-28-2024 End: 01-28-2024 ambulatory Yesica Astudillo MD Facility:[facility] Start: 01-22-2024 End: 01-22-2024 Professional / ancillary services management Chanell Stroud Cardiology Ecg/Holter [facility] Start: 01-21-2024 Non-patient / Non-visit DO Johnson العلي Work Phone: [facility] Physician Group-[facility] Work Phone: Start: 01-18-2024 End: 01-20-2024 Evaluation and management of inpatient DO Jazmin العلي Work Phone: [facility] [place] [facility] Work Phone: Start: 12-17-2023 End: 12-17-2023 ambulatory Yesica Astudillo MD Facility:[facility] Start: 11-27-2023 End: 11-27-2023 ambulatory DO Jazmin العلي Work Phone: [facility] Work Phone: Start: 11-27-2023 End: 11-27-2023 Patient encounter procedure DO Jazmin العلي Work Phone: [facility] Physician Group-[facility] Work Phone: Start: 11-22-2023 End: 11-22-2023 ambulatory DO Jazmin العلي Work Phone: [facility] Work Phone: Start: 11-22-2023 End: 11-22-2023 Patient encounter procedure DO Jazmin العلي Work Phone: [facility]-Pacemaker Check Start: 11-21-2023 End: 11-21-2023 ambulatory DO Jazmin العلي Work Phone: [facility] Work Phone: Start: 11-21-2023 End: 11-21-2023 Patient encounter procedure DO Jazmin العلي Work Phone: [facility]-MRI [place] Work Phone: Start: 09-24-2023 End: 09-24-2023 ambulatory DO Jazmin Ball Work Phone: [facility] Work Phone: Start: 09-24-2023 End: 09-24-2023 Patient encounter procedure DO Jazmin العلي Work Phone: [facility]-Pacemaker Check Start: 09-19-2023 End: 09-19-2023 Office outpatient visit 25 minutes Debbie Mac MD Work Phone: [facility] Comment on above: Persistent atrial fi brillation (CMS/HCC) (Primary Dx); 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); Chronic diastolic heart failure (CMS/HCC); Essential hypertension, benign; Mixed hyperlipidemia; Pacemaker; Sinus bradycardia; Single vessel coronary artery disease Start: 2023 End: 2023 ambulatory DO Jazmin العلي Work Phone: [facility] Work Phone: Start: 2023 End: 2023 Patient encounter procedure DO Jazmin العلي Work Phone: [facility]-Pacemaker Check Start: 08-24-2023 End: 08-24-2023 ambulatory Jazmin العلي Other [employer] Other Start: 08-24-2023 Telephone encounter Jazmin العلي [facility] Start: 08-21-2023 End: 08-21-2023 Subsequent hospital visit by physician Chanell Stroud Echo/Vasc Room 2 [facility] Comment on above: Chronic diastolic he art failure (CMS/HCC); Essential hypertension, benign; Dyspnea, unspecified type Start: 08-19-2023 End: 08-19-2023 ambulatory Negin Garcia Other [employer] Other Start: 08-19-2023 Patient encounter procedure Negin Garcia [facility] Start: 08-19-2023 End: 08-19-2023 Patient encounter procedure DO Jazmin العلي Work Phone: [facility] Physician Group-[facility] Work Phone: Start: 07-25-2023 End: 07-25-2023 Patient encounter procedure DO Jazmin العلي Work Phone: [facility] Physician Group-[facility] Work Phone: Start: 06-29-2023 End: 06-29-2023 ambulatory Jazmin العلي Other [facility] [employer] Other Start: 06-29-2023 Nursing evaluation o f patient and report Jazmin العلي [facility] Start: 05-31-2023 End: 05-31-2023 Office outpatient visit 25 minutes Debbie Mac MD Work Phone: [facility] Comment on above: Persistent atrial fi brillation [...] unspecified type Start: 05-25-2023 End: 05-25-2023 ambulatory Jazmin العلي Other [facility] [employer] Other Start: 05-25-2023 Telephone encounter Jazmin SIMMONS [facility] Start: 04-20-2023 Rx Renewal Jazmin Jovani Bal l Work Phone: [facility] DO Work Phone: Start: 04-18-2023 Rx Renewal Jazmin E Bal l Work Phone: [facility] DO Work Phone: Start: 04-12-2023 End: 04-12-2023 ambulatory Jazmin العلي Other [employer] Other Start: 04-12-2023 Telephone encounter Jazmin SIMMONS [facility] Start: 04-10-2023 End: 04-10-2023 ambulatory Jazmin العلي Other [employer] Other Start: 04-10-2023 Telephone encounter Jazmin SIMMONS [facility] Start: 03-21-2023 End: 03-21-2023 ambulatory Jazmin العلي Other [employer] Other Start: 03-21-2023 Patient encounter procedure Jazmin العلي [facility] Start: 03-13-2023 End: 03-13-2023 ambulatory Jazmin العلي Other [employer] Other Start: 03-13-2023 Telephone encounter Jazmin SIMMONS [facility] Start: 03-05-2023 Telephone encounter Jazmin SIMMONS [facility] Start: 03-05-2023 End: 03-05-2023 Admission to same day surgery center DO Jazmin العلي Work Phone: [facility]-Surgery [place] Start: 03-05-2023 End: 03-05-2023 ambulatory DO Jazmin العلي Work Phone: [facility] Work Phone: Start: 02-26-2023 End: 02-26-2023 ambulatory DO Jazmin العلي Work Phone: [facility] Work Phone: Start: 02-26-2023 End: 02-26-2023 Patient encounter procedure DO Jazmin العلي Work Phone: [facility]-Pre-Surgical Testing Work Phone: Start: 02-26-2023 Rx Renewal Jazmin Hahn Bal l Work Phone: [facility] DO Work Phone: Start: 01-25-2023 Office outpatient vi sit 25 minutes Jazmin Hahn Tyson Work Phone: [facility] Work Phone: Start: 01-09-2023 End: 01-09-2023 Admission to same day surgery center DO Jazmin Ball Work Phone: [facility]-Phlebotomist Associate Work Phone: Start: 01-03-2023 End: 01-04-[address] JAZMIN العلي Facility:[facility] Start: 01-02-2023 End: 01-03-[address] JAZMIN العلي Facility:[facility] Start: 12-25-2022 Office outpatient ne w 45 minutes Jazmin العلي Work Phone: [facility] Work Phone: Start: 12-25-[address] Jazmin العلي Facility:[id number] Start: 12-11-2022 End: 12-11-2022 ambulatory DO Jazmin Tyson Work Phone: [facility] Work Phone: Start: 12-11-2022 End: 12-11-2022 Patient encounter procedure DO Jazmin العلي Work Phone: [facility]-Pacemaker Check Start: 11-27-2022 Telephone encounter Jazmin SIMMONS [facility] Start: 11-27-2022 End: 11-27-2022 Admission to same day surgery center DO Jazmin العلي Work Phone: [facility]-Surgery Center [address] [place] Start: 11-27-2022 End: 11-27-2022 ambulatory DO Jazmin العلي Work Phone: [facility] [employer] Other Start: 11-20-2022 End: 11-20-2022 ambulatory DO Jazmin العلي Work Phone: [facility] Work Phone: Start: 11-20-2022 End: 11-20-2022 Patient encounter procedure DO Jazmin العلي Work Phone: [facility]-Pre-Surgical Testing Work Phone: Start: 10-30-2022 Telephone encounter Jazmin العلي [facility] Start: 10-30-2022 End: 10-30-2022 ambulatory DO Jazmin العلي Work Phone: [facility] Work Phone: Start: 10-30-2022 End: 10-30-2022 Patient encounter procedure DO Jazmin العلي Work Phone: [facility]-CT [address] Work Phone: Start: 10-24-2022 End: 10-24-2022 ambulatory Rachel Larios Other [employer] Other Start: 10-24-2022 Office outpatient vi sit 15 minutes Rachel CRUZ [facility] Start: 10-16-2022 End: 10-17-[address] JAZMIN العلي Facility: Start: 10-13-2022 Office outpatient vi sit 25 minutes Jazmin العلي [facility] Work Phone: Start: 10-10-2022 End: 10-10-2022 ambulatory Jazmin Tyson Other [employer] Other Start: 10-10-2022 Telephone encounter Jazmin SIMMONS [facility] Start: 09-27-2022 Patient encounter procedure [facility]لي [facility] Work Phone: Start: 09-24-2022 End: 09-24-2022 ambulatory Jazmin العلي Other [employer] Other Start: 09-24-2022 Telephone encounter Jazmin Joseph [facility] Start: 09-17-2022 End: 09-21-2022 Evaluation and management of inpatient DO Jazmin العلي Work Phone: [facility] [place] [facility] Work Phone: Start: 09-12-2022 End: 09-12-2022 ambulatory Jazmin العلي Other [employer] Other Start: 09-12-2022 Office outpatient vi sit 25 minutes Jazmin CRUZ [facility] Start: 09-11-2022 End: 09-11-2022 ambulatory DO Jazmin العلي Work Phone: [facility] Work Phone: Start: 09-11-2022 End: 09-11-2022 Patient encounter procedure DO Jazmin العلي Work Phone: [facility]-Pacemaker Check Start: 09-08-2022 End: 09-08-2022 ambulatory Jazmin العلي Other [employer] Other Start: 09-08-2022 Telephone encounter Jazmin العلي [facility] Start: 09-01-2022 End: 09-06-2022 Evaluation and management of inpatient DO Jazmin العلي Work Phone: [facility] [place] [facility] Work Phone: Start: 08-25-2022 Telephone encounter Jazmin العلي Work Phone: [facility] DO Work Phone: Start: 08-24-2022 Patient encounter procedure Jazmin العلي Work Phone: [facility] DO Work Phone: Start: 06-26-2022 Office outpatient vi sit 25 minutes Jazmni العلي Work Phone: [facility] DO Work Phone: Start: 06-09-2022 End: 06-09-2022 ambulatory DO Jazmin العلي Work Phone: [facility] Work Phone: Start: 06-09-2022 End: 06-09-2022 Patient encounter procedure DO Jazmin العلي Work Phone: [facility]-Pacemaker Check Start: 05-12-2022 End: 05-13-[address] JAZMIN العلي Facility:[facility] Start: 05-01-2022 Adult health examination Jazmin العلي Other [employer] Other Start: 04-27-2022 End: 04-27-2022 ambulatory John Mims Other [employer] Other Start: 04-27-2022 Office outpatient vi sit 25 minutes John Mims [facility] Gastroenterology Start: 04-20-2022 End: 04-20-[address] RACHEL LARIOS Facility:[facility] Start: 03-27-2022 Rx Renewal Jazmin rosen Work Phone: [facility] [employer] DO Work Phone: Start: 03-16-2022 End: 03-16-2022 ambulatory John Mims Other [facility] [employer] Other Start: 03-16-2022 Telephone encounter John feliciano [facility] Gastroenterology Start: 03-10-2022 Office outpatient vi sit 25 minutes Jazmin العلي Work Phone: [facility] [employer] DO Work Phone: Start: 03-09-2022 End: 03-09-2022 Patient encounter procedure DO Jazmin العلي Work Phone: [facility]-Digestive Health Start: 03-09-2022 End: 03-09-2022 Patient encounter procedure DO Jazmin Tyson Work Phone: [facility]-Pacemaker Check Start: 02-28-2022 End: 02-28-2022 ambulatory John Mims Other [facility] [employer] Other Start: 02-28-2022 Office outpatient vi sit 25 minutes John Mims [facility] Gastroenterology Start: 02-16-2022 End: 02-16-2022 Patient encounter procedure DO Jazmin Ball Work Phone: [facility]-XRay [facility] Start: 01-25-2022 End: 01-26-[address] Wolf [facility] Facility: Start: 01-19-2022 End: 01-19-2022 Patient encounter procedure DO Jazmin Ball Work Phone: [facility]-XRay [facility] Start: 01-11-2022 End: 01-12-[address] JAZMIN العلي Facility:[facility] Start: 01-03-2022 End: 01-03-2022 Patient encounter procedure DO Jazmin العلي Work Phone: [facility]-Digestive Health Start: 12-30-2021 End: 12-30-2021 Patient encounter procedure DO Jazmin العلي Work Phone: [facility]-Pre-Surgical Testing Start: 11-21-2021 End: 11-21-2021 Patient encounter procedure DO Jazmin العلي Work Phone: [facility]-Pacemaker Check Start: 10-19-2021 Office outpatient vi sit 25 minutes Jazmin العلي Work Phone: [facility] DO Work Phone: Start: 08-15-2021 Patient encounter procedure Jazmin العلي Work Phone: [facility] DO Work Phone: Start: 07-26-2021 Rx Renewal Jazmin rosen Work Phone: [facility] DO Work Phone: Start: 07-06-2021 Postop follow up vis it related to original px Jazmin العلي Work Phone: [facility] DO Work Phone: Start: 06-28-2021 Chart Update Jazmin rosen Work Phone: [facility] [place] Work Phone: Start: 06-26-2021 Chart Update Jazmin rosen Work Phone: [facility] [place] Work Phone: Start: 06-24-2021 Chart Update Jazmin rosen Work Phone: [facility] [place] Work Phone: Start: 06-24-2021 Chart Update Jazmin rosen Work Phone: [facility] [place] Work Phone: Start: 06-23-2021 Chart Update Jazmin rosen Work Phone: [facility] [place] Work Phone: Start: 06-23-2021 SURGNONUH, Provider: Debbie Mac, Status: Pen, Time: 10:00 AM Jazmin العلي Work Phone: [facility] [place] Work Phone: Start: 06-22-2021 Chart Update Jazmin rosen Work Phone: [facility] [place] Work Phone: Start: 06-13-2021 Telephone encounter Jazmin العلي Work Phone: [facility] [place] Work Phone: Start: 06-06-2021 Patient encounter procedure Jazmin العلي Work Phone: [facility] DO Work Phone: Start: 05-25-2021 Telephone encounter Debbie singletary MD Work Phone: [facility] DO Work Phone: Start: 07-26-2020 End: 07-31-2020 Evaluation and management of inpatient JAZMIN العلي Facility:[facility] Procedures Date Procedure Procedure Detail Performing Clinician Start: 05-01-2025 Creatinine blood Maxwell Medrano MD Work Phone: Start: 01-30-2025 Rem interrog pm/ldls pm/ids <90 d tech review Maxwell Medrano MD Work Phone: Start: 01-22-2025 Plain chest X-ray Jazmin العلي DO Work Phone: Start: 09-12-2024 Viral nucleic acid assay Jazmin العلي A[facility] Work Phone: Start: 09-12-2024 CT of chest without contrast Jazmin landaverde DO Work Phone: Start: 09-11-2024 Plain chest X-ray Jazmin العلي DO Work Phone: Start: 09-05-2024 Ecg routine ecg w/least 12 lds w/i&r Debbie Mac MD Work Phone: Start: 09-05-2024 X-ray of cervical spine Jazmin العلي DO Work Phone: Start: 09-05-2024 X-ray of thoracic spine, two views George gin العلي DO Work Phone: Start: 06-30-2024 CT of head without contrast Jazmin Moyer l DO Work Phone: Start: 06-30-2024 Plain chest X-ray Jazmin العلي DO Work Phone: Start: 06-26-2024 Radiologic exam esophagus double contrast study Katie Yung MD Work Phone: Start: 05-29-2024 Esophageal motility study w/interp&rpt Katie Yung MD Work Phone: Start: 05-29-2024 Esophagogastroduodenoscopy transoral diagnostic Katie Yung MD Work Phone: Start: 04-24-2024 Ecg routine ecg w/least 12 lds w/i&r Debbie Mac MD Work Phone: Start: 04-17-2024 Ecg routine ecg w/least 12 lds w/i&r Maxwell Medrano MD Work Phone: Start: 02-28-2024 Ecg routine ecg w/least 12 lds w/i&r Maxwell Medrano MD Work Phone: Start: 02-25-2024 Ecg routine ecg w/least 12 lds w/i&r Debbie Mac MD Work Phone: Start: 02-18-2024 Computed tomography of abdomen and pelvis with contrast DO Jazmin العلي Work Phone: Start: 01-22-2024 Ecg routine ecg w/least 12 lds w/i&r Debbie Mac MD Work Phone: Start: 01-18-2024 Plain chest X-ray DO Jazmin Ball Work Phone: Start: 11-21-2023 MR lumbar spine wo con DO Jazmin Ball Work Phone: Start: 09-19-2023 Ecg routine ecg w/least 12 lds w/i&r Debbei aMc MD Work Phone: Start: 08-21-2023 Echo tthrc r-t 2d w/wom-mode compl spec&colr d Debbie Mac MD Work Phone: Start: 05-31-2023 Ecg routine ecg w/least 12 lds w/i&r Debbie Mac MD Work Phone: Start: 03-05-2023 Laparoscopic cholecystectomy DO Jazmin Ball Work Phone: Start: 01-09-2023 CL LHC & COR Angio DO Jazmin Ball Work Phone: Start: 01-09-2023 DO Jazmin Ball Work Phone: Start: 10-30-2022 CT of chest without contrast DO Jazmin Ball Work Phone: Start: 09-21-2022 Plain chest X-ray DO Jazmin Ball Work Phone: Start: 09-20-2022 Plain chest X-ray DO Jazmin Ball Work Phone: Start: 09-18-2022 Doppler ultrasonography of bilateral carotid arteries DO Jazmin Ball Work Phone: Start: 09-17-2022 Urine culture DO Jazmin Ball Work Phone: Start: 09-17-2022 Plain chest X-ray DO Jazmin Ball Work Phone: Start: 09-02-2022 CT of chest without contrast DO Jazmin Ball Work Phone: Start: 09-01-2022 CT of head without contrast DO Jazmin Ball Work Phone: Start: 09-01-2022 Urine culture DO Jazmin Ball Work Phone: Start: 09-01-2022 Plain chest X-ray DO Jazmin العلي Work Phone: Start: 03-09-2022 DH Fibroscan DO Jazmin العلي Work Phone: Start: 01-03-2022 Esophageal manometry DO Jazmin العلي Twiigg Phone: Start: 07-30-2020 MEASUREMENT OF CARDIAC TOTAL ACTIVITY, EXTERNAL APPROACH TANNER SHARON Start: 07-28-2020 INTRODUCTION OF OTHER GAS INTO RESP TRACT, VIA OPENING JELANI WOO Start: 07-28-2020 Sikhism of Cardiac Rhythm, Single SANJUANA CARRERO Start: 07-28-2020 ULTRASONOGRAPHY OF RIGHT AND LEFT HEART, TRANSESOPHAGEAL SANJUANA CARRERO Start: 06-20-2017 Screening for osteoporosis Jazmin العلي Other Start: 09-13-2016 General examination of patient Jazmin العلي Other Start: 05-21-2015 Screening mammography Jazmin العلي Other Appendectomy Jazmin العلي Work Phone: Depression screening Arlette العلي Other Hernia repair Jazmin Hahn Bal l Work Phone: Hysterectomy Jazmin العلي Work Phone: Insertion of pacemak er pulse generator Jazmin العلي Work Phone: Operative procedure on foot Jazmin العلي Work Phone: Plan of Treatment Date Care Activity Detail Author Start: 07-11-2031 DTaP/Tdap/Td Vaccines (2 - Td or Tdap) DTaP/Tdap/Td Vaccines (2 - Td or Tdap) [facility] Start: 07-11-2031 DTaP/Tdap/Td Vaccines (3 - Td or Tdap) DTaP/Tdap/Td Vaccines (3 - Td or Tdap) [facility] Start: 07-11-2031 Tetanus vaccination Tetanus (Td or Tdap) [facility] Start: 04-28-2026 Creatinine measurement Creatinine Level [facility] Start: 04-28-2026 Diabetes mellitus screening Diabetes Screening [facility] Start: 04-28-2026 Potassium measurement Potassium Level [facility] Start: 07-23-2025 End: 07-23-2025 Patient encounter procedure 07/23/2025 4:20 PM EST Procedure Visit [facility] [address] [facility] 120 [place] [address] Joseph Sepulveda DPM [address] [facility] 5 [place] [address] [facility] Start: 05-29-2025 End: 05-29-2025 Patient encounter procedure 05/29/2025 2:15 PM EDT Off ice Visit [facility] Medical Office [address] [address] Maxwell Medrano MD [address] [place] [address] [facility] Medical Office [facility] Start: 05-28-2025 End: 05-28-2025 Admission to same day surgery center 05/28/2025 8:30 AM EDT - 05/28/2025 12:30 PM EDT Surgery [facility] [address] [place] [address] Maxwell Medrano MD [address] [place] [phone] Ablation A-Fib [80038 (CPT )] [facility] Comment on above: Ablation A-Fib [92335 (CPT )] Start: 05-28-2025 Subsequent hospital visit by physician 05/28/2025 8:30 AM EDT Hospital Encounter [facility] [address] [place] [address] Maxwell Medrano MD [address] [place] [phone] Persistent atrial fibrillation (Multi) [facility] Comment on above: Persistent atrial fibrillation (Multi) Start: 05-27-2025 End: 05-27-2025 Patient encounter procedure 05/27/2025 11:30 AM EDT Appointment [facility] [address] [place] [address] Arron Veloz MD [address] [facility] Medical Office Bld[address], [address] [place] [address] [facility] Start: 05-26-2025 End: 05-26-2025 Patient encounter procedure 05/26/2025 2:40 PM EDT Off ice Visit [facility] [address] [facility] 250 [place] [address] Debbie Mac MD [address] [facility] [address], [address] [place] [address] [facility] Start: 05-21-2025 End: 05-21-2025 Patient encounter procedure 05/21/2025 11:15 AM EDT Office Visit [facility] Medical Office Building [address] [facility] [address] [place] [address] Maxwell Medrano MD [address] [facility] [address] [place] [address] [facility] Medical Office Building Start: 05-21-2025 End: 05-21-2025 Professional / ancillary services management 05/21/2025 11:00 AM EDT Ancillary Procedure [facility] Medical Office Building [address] [facility] [address] [place] [address] [facility] Medical Office Building Start: 05-20-2025 Influenza vaccination Influenza Vaccine (#1) [facility] Start: 05-07-2025 End: 05-07-2025 Patient encounter procedure 05/07/2025 3:00 PM EDT Off ice Visit [facility] [address] [facility] 120 [place] [phone] Joseph Sepulveda, NICK [address] [facility] 5 [place] [address] [facility] Start: 04-25-2025 End: 10-23-2025 Cardiac Device Check - In Clinic Cardiac Device Check - In Clinic Implantable Cardiac Device Routine Pacemaker Expected: 04/25/2025 (Approximate), Expires: 10/23/2025 [facility] Work Phone: Comment on above: Expected: 04/25/2025 (Approximate), Expi res: 10/23/2025 Start: 04-23-2025 End: 04-23-2025 Patient encounter procedure 04/23/2025 11:30 AM EDT Procedure Visit [facility] [address] [facility] [address] [place] [address] Joseph Sepulveda DPM [address] [facility] 5 [place] [address] [facility] Start: 04-20-2025 COVID-19 Vaccine ( season) COVID-19 Vaccine ( season) [facility] Start: 04-20-2025 COVID-19 Vaccine ( season) COVID-19 Vaccine ( season) [facility] Start: 04-20-2025 Influenza vaccination [facility] Start: 03-27-2025 Creatinine measurement Creatinine Level [facility] Start: 03-27-2025 Diabetes mellitus screening Diabetes Screening [facility] Start: 03-27-2025 Potassium measurement Potassium Level [facility] Start: 03-05-2025 End: 03-05-2025 Patient encounter procedure 03/05/2025 3:00 PM EDT Off ice Visit [facility] [address] [place] [address] Debbie Mac MD [address] [facility] [address], [address] [place] [address] [facility] Start: 02-23-2025 End: 02-23-2025 Patient encounter procedure 02/23/2025 3:00 PM EDT Off ice Visit [facility] Medical Office Building [address] [facility] [address] [place] [address] Cristiana Chapa, REELER OPERATOR-GLASSBLOWER [address] [facility] [address] [place] [address] [facility] Medical Office Building Start: 02-12-2025 End: 02-12-2025 Patient encounter procedure 02/12/2025 10:30 AM EDT Office Visit [facility] [address] [facility] 120 [place] [address] Joseph Sepulveda DPM [address] [facility] 5 [place] [address] Arrived [facility] Comment on above: Arrived Start: 02-06-2025 Echocardiography Echocardiogram [facility] Start: 02-01-2025 [facility] Start: 01-31-2025 [facility] Start: 01-30-2025 [facility] Start: 01-29-2025 [facility] Start: 01-28-2025 [facility] Start: 01-27-2025 [facility] Start: 01-26-2025 Comprehensive metabolic 2000 panel - Serum or Plasma [facility] Start: 01-26-2025 [facility] Start: 01-25-2025 Comprehensive metabolic 2000 panel - Serum or Plasma [facility] Start: 01-25-2025 [facility] Start: 01-24-2025 Comprehensive metabolic 2000 panel - Serum or Plasma [facility] Start: 01-24-2025 [facility] Start: 01-23-2025 End: 01-23-2025 [facility] Start: 01-22-2025 Hospital admission [facility] Start: 01-22-2025 Referral to imposer [facility] Start: 01-22-2025 [facility] Start: 01-18-2025 Echocardiography Echocardiogram [facility] Start: 12-31-2024 End: 12-31-2024 Telemedicine consultation with patient 12/31/2024 8:45 AM EDT Telemedicine [facility] General Surgery [address] [place] [address] Nigel El MD [address] [place] [address] [facility] General Surgery Start: 12-30-2024 End: 12-30-2024 Telemedicine consultation with patient 12/30/2024 10:00 AM EDT Telemedicine [facility] General Surgery [address] [place] [address] Nigel El MD [address] [place] [address] [facility] General Surgery Start: 12-16-2024 End: 12-16-2024 Telemedicine consultation with patient 12/16/2024 2:15 PM EDT Telemedicine [facility] Surgery General [address] [place] [address] Nigel El MD [address] [place] [address] [facility] Surgery General Start: 12-08-2024 End: 12-08-2024 Admission to same day surgery center 12/08/2024 10:32 AM EDT - 12/08/2024 11:02 AM EDT Surgery [facility] [address] [place] [address] Nigel El MD [address] [place] [address] ESOPHAGOGASTRODUODENOSCOPY WITH ENDOFLIP [facility] Suite Comment on above: ESOPHAGOGASTRODUODENOSCOPY WITH ENDOFLIP Start: 12-08-2024 Subsequent hospital visit by physician 12/08/2024 10:32 AM EDT Hospital Encounter [facility] Endoscopy [address] [place] [address] Nigel El MD [address] [place] [address] [facility] Suite Start: 12-08-2024 End: 12-08-2024 Esophgl balo distension dx std w/provocation [facility] Start: 12-04-2024 End: 06-05-2025 Cardiac Device Check - In Clinic Cardiac Device Check - In Clinic Implantable Cardiac Device Routine Pacemaker Expected: 12/04/2024, Expires: 06/05/2025 [facility] Service Area Work Phone: Comment on above: Expected: 12/04/2024, Expires: Start: 10-23-2024 End: 10-23-2025 Basic metabolic 2000 panel - Serum or Plasma Basic Metabolic Panel Lab Routine Persistent atrial fibrillation (Multi) Expected: 10/23/2024 (Approximate), Expires: 10/23/2025 [facility] Work Phone: Comment on above: Expected: 10/23/2024 (Approximate), Expi res: 10/23/2025 Start: 10-23-2024 End: 10-23-2025 CBC panel - Blood by Automated count CBC Lab Routine Persistent atrial fibrillation (Multi) Expected: 10/23/2024 (Approximate), Expires: 10/23/2025 [facility] Work Phone: Comment on above: Expected: 10/23/2024 (Approximate), Expi res: 10/23/2025 Start: 10-23-2024 End: 10-23-2025 Creatinine [Mass/volume] in Serum or Plasma Creatinine, Serum Lab Routine Persistent atrial fibrillation (Multi) High risk medication use Expected: 10/23/2024 (Approximate), Expires: 10/23/2025 [facility] Work Phone: Comment on above: Expected: 10/23/2024 (Approximate), Expi res: 10/23/2025 Start: 10-23-2024 End: 10-23-2025 CT Heart for congenital disease W contrast IV CT heart structure morphology congenital heart disease w IV contrast Imaging Routine Persistent atrial fibrillation (Multi) Expected: 10/23/2024, Expires: 10/23/2025 [facility] Work Phone: Comment on above: Expected: 10/23/2024, Expires: Start: 10-23-2024 End: 10-23-2025 Prothrombin time (PT) Protime-INR Lab Routine Persistent atrial fibrillation (Multi) Expected: 10/23/2024 (Approximate), Expires: 10/23/2025 [facility] Work Phone: Comment on above: Expected: 10/23/2024 (Approximate), Expi res: 10/23/2025 Start: 10-23-2024 End: 10-23-2025 US Heart Transesophageal Transesophageal Echo (VIRA) Echocardiography Routine Persistent atrial fibrillation (Multi) Expected: 10/23/2024, Expires: 10/23/2025 [facility] Work Phone: Comment on above: Expected: 10/23/2024, Expires: Start: 10-23-2024 End: 10-23-2024 Professional / ancillary services management 10/23/2024 12:20 PM EST Ancillary Procedure [facility] Medical Office Building [address] [facility] [address] [place] [address] [facility] Medical Office Building Start: 10-23-2024 End: 10-23-2024 Patient encounter procedure 10/23/2024 11:00 AM EST Office Visit [facility] Medical Office [facility] [address] [facility] [address] [place] [address] Maxwell Medrano MD [address] [facility] [address] [place] [address] [facility] Medical Office Building Start: 09-05-2024 End: 09-05-2025 Complete Pulmonary Function Test (Spirometry/DLCO/Lung Volumes) Complete Pulmonary Function Test (Spirometry/DLCO/Lung Volumes) PFT Routine Persistent atrial fibrillation (Multi) High risk medication use Expected: 09/05/2024 (Approximate), Expires: 09/05/2025 [facility] Service Area Work Phone: Comment on above: Expected: 09/05/2024 (Approximate), Expi res: 09/05/2025 Start: 09-05-2024 End: 09-05-2025 Thyrotropin [Units/volume] in Serum or Plasma Thyroid Stimulating Hormone Lab Routine Persistent atrial fibrillation (Multi) High risk medication use Expected: 09/05/2024 (Approximate), Expires: 09/05/2025 [facility] Work Phone: Comment on above: Expected: 09/05/2024 (Approximate), Expi res: 09/05/2025 Start: 09-04-2024 End: 09-04-2024 Patient encounter procedure 09/04/2024 1:50 PM EST Off ice Visit [facility] [address] [facility] [address] [place] [address] Debbie Mac MD [address] [facility] [address], [address] [place] [address] [facility] Start: 08-21-2024 Echocardiography Echocardiogram [facility] Start: 07-24-2024 [facility] Start: 07-23-2024 Referral to mill representative [facility] Start: 07-22-2024 Administration of prophylactic treatment [facility] Start: 07-21-2024 [facility] Start: 07-21-2024 Referral to imposer [facility] Start: 07-21-2024 Hospital admission [facility] Start: 07-07-2024 End: 07-07-2024 Patient encounter procedure 07/07/2024 10:30 AM EST Office Visit [facility] Medical Office Building [address] [facility] [address] [place] [address] Cristiana Chapa, REELER OPERATOR-GLASSBLOWER [address] [facility] [address] [place] [address] [facility] Office Building Start: 07-03-2024 [facility] Start: 07-01-2024 [facility] Start: 07-01-2024 [facility] Start: 06-30-2024 [facility] Start: 06-30-2024 Physical therapy procedure [facility] Start: 06-30-2024 Referral to imposer [facility] Start: 06-30-2024 Referral to occupational therapist [facility] Start: 06-30-2024 End: 06-30-2024 [facility] Start: 06-30-2024 Hospital admission [facility] Start: 06-26-2024 Subsequent hospital visit by physician 06/26/2024 11:00 AM EST Hospital Encounter [facility] Radiology Department [address] [place] [address] [facility] Radiology Department Start: 06-05-2024 End: 06-05-2024 Patient encounter procedure 06/05/2024 12:00 PM EDT Office Visit [facility] Office [address] [address] Maxwell Medrano MD [address] [place] [address] [facility] Office [facility] Start: 05-16-2024 End: 05-16-2024 Patient encounter procedure 05/16/2024 10:00 AM EDT Office Visit [facility] [address] [facility] [address] [place] [address] Debbie Mac MD [address] [facility] [address], [address] [place] [address] [facility] Start: 04-28-2024 End: 04-28-2024 Patient encounter procedure 04/28/2024 11:30 AM EDT Office Visit [facility] Office Building [address] [place] [address] Maxwell Medrano MD [address] [place] [address] [address] [place] [address] [facility] Medical Office Building Start: 04-24-2024 End: 04-24-2024 Patient encounter procedure 04/24/2024 3:10 PM EDT Off ice Visit [facility] [address] [facility] [address] [place] [address] Debbie Mac MD [facility] [place] [address] [facility] Start: 04-20-2024 COVID-19 Vaccine ( season) COVID-19 Vaccine ( season) [facility] Start: 04-20-2024 COVID-19 Vaccine ( season) COVID-19 Vaccine ( season) [facility] Start: 04-20-2024 COVID-19 Vaccine ( season) COVID-19 Vaccine ( season) [facility] Start: 04-20-2024 Influenza vaccination Influenza Vaccine (#1) [facility] Start: 04-17-2024 End: 04-17-2025 Digoxin [Mass/volume] in Serum or Plasma Digoxin level Lab Routine High risk medication use Pacemaker Anticoagulation management encounter Longstanding persistent atrial fibrillation (Multi) Sinus bradycardia BMI 28.0-28.9,adult Never smoked any substance Expected: 04/17/2024 (Approximate), Expires: 04/17/2025 [facility] Service Area Work Phone: Comment on above: Expected: 04/17/2024 (Approximate), Expi res: 04/17/2025 Start: 04-07-2024 End: 04-07-2024 Patient encounter procedure 04/07/2024 9:45 AM EDT Off [place] Visit [address] [address] Maxwell Medrano MD [address] [place] [address] [facility] Start: 03-25-2024 End: 03-25-2024 Patient encounter procedure 03/25/2024 2:40 PM EDT Off ice Visit [facility] [address] [place] [address] Debbie Mac MD [address], [address] [place] [address] [facility] Start: 03-17-2024 End: 03-17-2024 Patient encounter procedure 03/17/2024 12:30 PM EDT Office Visit [address] [place] [address] Maxwell Medrano MD [address] [facility] [address] [place] [address] [facility] Start: 02-28-2024 End: 02-24-2025 ECG 12 Lead ECG 12 Lead ECG Routine Persistent atrial fibrillation (Multi) Expected: 02/28/2024 (Approximate), Expires: 02/24/2025 [facility] Service Area Work Phone: Comment on above: Expected: 02/28/2024 (Approximate), Expi res: 02/24/2025 Start: 02-28-2024 End: 02-28-2024 Professional / ancillary services management 02/28/2024 1:00 PM EDT Ancillary Procedure [place] [address] [address] [place] [address] [facility] Start: 01-20-2024 [facility] Start: 01-19-2024 [facility] Start: 01-18-2024 Referral to imposer [facility] Start: 01-18-2024 [facility] Start: 01-18-2024 Hospital admission [facility] Start: 11-28-2023 End: 11-28-2023 Patient encounter procedure 11/28/2023 3:10 PM EDT Off [place] Visit [address] [place] [address] Debbie Mac MD [address] [place] [address] [facility] Start: 09-19-2023 End: 09-19-2023 Patient encounter procedure 09/19/2023 1:00 PM EST Off ice Visit [facility] [address] [place] [address] Debbie Mac MD [address] [place], [place] [id number] [facility] Start: 09-02-2023 Echocardiography Echocardiogram [facility] Start: 08-20-2023 Annual wellness visit Annual Wellness Visit ([id number]) [facility] Start: 07-05-2023 End: 07-05-2023 Patient encounter procedure 07/05/2023 1:30 PM EST Appointment [facility] [address] [place] [address] [facility] Start: 05-31-2023 FUV, Provider: Debbie Mac, Status: Pen, Time: 3:00 PM FUV, Provider: Debbie Mac, Status: Pen, Time: 3:00 PM [facility] Work Phone: Start: 05-31-2023 End: 05-31-2025 US Heart Transthoracic Transthoracic Echo (TTE) Complete Echocardiography Routine Chronic diastolic heart failure (CMS/HCC) Essential hypertension, benign Dyspnea, unspecified type Expected: 05/31/2023 (Approximate), Expires: 05/31/2025 [facility] Service Area Work Phone: Comment on above: Expected: 05/31/2023 (Approximate), Expi res: 05/31/2025 Start: 05-09-2023 FUV, Provider: Maxwell Medrano, Status: Pen, Time: 4:00 PM FUV, Provider: Maxwell Medrano, Status: Pen, Time: 4:00 PM -[facility] [address] DO Work Phone: Start: 04-20-2023 COVID-19 Vaccine ( season) COVID-19 Vaccine ( season) [facility] Start: 04-20-2023 Influenza vaccination Influenza Vaccine (#1) [facility] Start: 04-04-2023 FUV, Provider: Maxwell Medrano, Status: Pen, Time: 3:00 PM FUV, Provider: Maxwell Medrano, Status: Pen, Time: 3:00 PM -[facility] [address] DO Work Phone: Start: 03-05-2023 [facility] Start: 03-05-2023 [facility] Start: 02-14-2023 FUV, Provider: Maxwell Medrano, Status: Pen, Time: 1:30 PM FUV, Provider: Maxwell Medrano, Status: Pen, Time: 1:30 PM [facility] Work Phone: Start: 01-09-2023 [facility] Start: 01-04-2023 FUV, Provider: Debbie Mac, Status: Pen, Time: 1:50 PM FUV, Provider: Debbie Mac, Status: Pen, Time: 1:50 PM [facility] [address] DO Work Phone: Start: 11-27-2022 Laparoscopic cholecystectomy OR Cholecystectomy Laparoscopic (Not Applicable) [facility] Start: 11-27-2022 End: 11-27-2022 [facility] Start: 10-13-2022 FUV, Provider: Debbie Mac, Status: Pen, Time: 10:30 AM FUV, Provider: Debbie Mac, Status: Pen, Time: 10:30 AM -[facility] [address] DO Work Phone: Start: 09-21-2022 [facility] Start: 09-17-2022 Hospital admission [facility] Start: 09-17-2022 Referral to imposer [facility] Start: 09-17-2022 Bacteria identified in Urine by Culture [facility] Start: 09-06-2022 [facility] Start: 09-05-2022 Blood chemistry [facility] [facility]-05-2022 [facility] Start: 09-04-2022 Administration of prophylactic treatment [facility] Start: 09-04-2022 Blood chemistry [facility] Start: 09-04-2022 [facility] Start: 09-03-2022 Blood chemistry [facility] Start: 09-03-2022 [facility] Start: 09-02-2022 Blood chemistry [facility] Start: 09-02-2022 Brain natriuretic peptide measurement [facility] Start: 09-02-2022 Magnesium measurement [facility] Start: 09-02-2022 [facility] Start: 09-01-2022 Referral to imposer [facility] Start: 09-01-2022 Hospital admission [facility] Start: 09-01-2022 [facility] Start: 09-01-2022 Bacteria identified in Urine by Culture Urine Culture [facility] Start: 07-12-2022 FUV, Provider: Debbie Mac, Status: Pen, Time: 2:40 PM FUV, Provider: Debbie Mac, Status: Pen, Time: 2:40 PM [facility] 250 DO Work Phone: Start: 03-09-2022 [facility] Work Phone: Start: 02-22-2022 FUV, Provider: Debbie Mac, Status: Pen, Time: 2:50 PM FUV, Provider: Debbie Mac, Status: Pen, Time: 2:50 PM [facility] 250 DO Work Phone: Start: 01-08-2022 COVID-19 Vaccine (3 - Pfizer series) COVID-19 Vaccine (3 - Pfizer series) [facility] Start: 01-03-2022 [facility] Work Phone: Start: 10-19-2021 FUV, Provider: Debbie Mac, Status: Pen, Time: 3:30 PM FUV, Provider: Debbie Mac, Status: Pen, Time: 3:[address] [facility] 250 DO Work Phone: Start: 09-12-2021 FUV, Provider: Debbie Mac, Status: Pen, Time: 2:50 PM FUV, Provider: Debbie Mac, Status: Pen, Time: 2:[address] [facility] 250 DO Work Phone: Start: 07-26-2021 FUV, Provider: Debbie Mac, Status: Pen, Time: 2:[address] [facility] 250 DO Work Phone: Start: 06-23-2021 SURGNONUH, Provider: Debbie Mac, Status: Pen, Time: 10:00 AM SURGNONUH, Provider: Debbie Mac, Status: Pen, Time: 10:[address] [facility] 250A [place] Work Phone: Start: 11-08-2019 Pneumococcal Vaccine: 65+ Years (2 - PCV) Pneumococcal Vaccine: 65+ Years (2 - PCV) [facility] Start: 11-08-2019 Pneumococcal Vaccine: 65+ Years (2 of 2 - PCV) Pneumococcal Vaccine: 65+ Years (2 of 2 - PCV) [facility] Start: 2017 RSV High Risk: (Elderly (60+) or Population) (1 - 1-dose 75+ series) RSV High Risk: (Elderly (60+) or Population) (1 - 1-dose 75+ series) [facility] Start: 2017 RSV Vaccine (75+ years) RSV Vaccine (75+ years) [facility] Start: 2017 RSV vaccine (adult) (1 - 1-dose 75+ series) RSV vaccine (adult) (1 - 1-dose 75+ series) [facility] Start: 10-31-2012 Zoster Vaccines (2 of 3) Zoster Vaccines (2 of 3) [facility] Start: 2007 Pneumococcal vaccination Pneumococcal Vaccine(s) (65+ yrs) (1 of 1 - PCV) [facility] Start: 2007 Screening for osteoporosis [facility] Start: 2002 Hepatitis B (HBV) Vaccine (optional start 60+ years) Hepatitis B (HBV) Vaccine (optional start 60+ years) [facility] Start: 2002 Hepatitis B Vaccines (1 of 3 - Risk 3-dose series) Hepatitis B Vaccines (1 of 3 - Risk 3-dose series) [facility] Start: 2002 RSV patients and/or patients aged 60+ years (1 - 1-dose 60+ series) RSV patients and/or patients aged 60+ years (1 - 1-dose 60+ series) [facility] Start: 1992 Pneumococcal vaccination Pneumococcal Vaccine(s) (50+ yrs) (1 of 1 - PCV) [facility] Start: 1992 Shingles (RZV) Vaccine (1 of 2) Shingles (RZV) Vaccine (1 of 2) [facility] Start: 1961 Hepatitis A (HAV) Vaccine (optional start 19+ years) Hepatitis A (HAV) Vaccine (optional start 19+ years) [facility] Start: 1961 Hepatitis A Vaccines (1 of 2 - Risk 2-dose series) Hepatitis A Vaccines (1 of 2 - Risk 2-dose series) [facility] Start: 1961 Urine screening for protein CKD: Urine Protein Screening [facility] Start: 1960 Diabetes mellitus screening Diabetes Screening [facility] Start: 1942 Creatinine measurement Creatinine Level [facility] Start: 1942 Lipid panel Lipid Panel [facility] Start: 1942 Medicare Annual Wellness Visit Medicare Annual Wellness Visit (AWV) [facility] Start: 1942 Potassium measurement Potassium Level [facility] Start: 1942 Screening for osteoporosis Bone Density Scan [facility] Start: 1942 Thyroid stimulating hormone measurement TSH Level [facility] ABLATION A-FIB ABLATION A-FIB P ersistent atrial fibrillation (Multi) [facility] Work Phone: Albumin/Globulin ratio [facility] Anion gap measurement [facility] Basophils [#/volume] in Blood by Automated count [facility] Basophils/100 leukoc ytes in Blood by Automated count [facility] End: 12-04-2024 Cardiac Device Check - Remote Cardiac Device Check - R emote Implantable Cardiac Device Routine Pacemaker 52 Occurrences starting 06/05/2024 until 12/04/2024 [facility] Work Phone: Comment on above: 52 Occurrences starting 06/05/2024 until 12/04/2024 End: 09-08-2024 Cardiac Device Check - Remote [facility] Servi ce Area Work Phone: Comment on above: Once for 1 Occurrences starting 09/08/19 until 09/08/2024 End: 04-25-2025 Cardiac Device Check - Remote Cardiac Device Check - R emote Implantable Cardiac Device Routine Pacemaker 52 Occurrences starting 10/23/2024 until 04/25/2025 [facility] Service Area Work Phone: Comment on above: 52 Occurrences starting 10/23/2024 until 04/25/2025 Comprehensive metabo lic 2000 panel - Serum or Plasma [facility] End: 05-01-2025 Creatinine [Mass/volume] in Serum or Plasma [facility] Service Area Work Phone: Comment on above: Once (Lab) for 1 Occurrences starting until 05/01/2025 CT Abdomen and Pelvi s W contrast IV [facility] CT Abdomen and Pelvi s W contrast IV [facility] ECG 12 Lead ECG 12 Lead ECG Routine Persistent atrial fibrillation ([facility]) 02/23/2025 3:00 PM EDT [facility] Service Area Work Phone: Eosinophils/100 leuk ocytes in Blood by Automated count [facility] Ephys eval w/ablatio n ventricular tachycardia ABLATION A-FIB PAROXYSMAL Persistent atrial fibrillation (Multi) [facility] Cardiac Phlebotomist Associate Erythrocyte distribu tion width [Ratio] by Automated count [facility] Erythrocytes [#/volu me] in Blood [facility] Esophageal motility study w/interp&rpt ESOPHAGUS MOTILITY (MANOMETRY) STUDIES Procedures Routine Esophageal dysphagia 05/29/2024 3:48 PM EDT [facility] [employer] Work Phone: Esophagogastroduoden oscopy transoral diagnostic ESOPHAGOGASTRODUODENOSCOPY Esophageal dysphagia [facility] Esophgl balo distens ion dx std w/provocation ESOPHAGOGASTRODUODENOSCOPY WITH ENDOFLIP Esophageal dysphagia [facility] Globulin [Mass/volum e] in Serum [facility] Hematocrit [Volume F raction] of Blood [facility] Hemoglobin [Mass/vol ume] in Blood [facility] Hepatitis A virus an tibody, IgM type [facility] Work Phone: Hepatitis B core ant ibody measurement, IgM type [facility] Work Phone: Hepatitis B virus vieira rface Ag [Presence] in Serum or Plasma by Immunoassay [facility] Work Phone: Hepatitis C virus Ab Signal/Cutoff in Serum or Plasma by Immunoassay [facility] Work Phone: Hepatitis C virus RN A [log units/volume] (viral load) in Serum or Plasma by GUILLERMO with probe detection [facility] Work Phone: Hepatitis C virus RN A [Units/volume] (viral load) in Serum or Plasma by GUILLERMO with probe detection [facility] Work Phone: Homogenous nuclear A b pattern [Titer] in Serum [facility] Work Phone: Leukocytes [#/volume ] corrected for nucleated erythrocytes in Blood by Automated coun [facility] Leukocytes [#/volume ] in Blood [facility] Lymphocytes [#/volum e] in Blood by Automated count [facility] Lymphocytes/100 leuk ocytes in Blood by Automated count [facility] MCH [Entitic mass] b y Automated count [facility] MCHC [Mass/volume] b y Automated count [facility] MCV [Entitic volume] by Automated count [facility] Monocytes [#/volume] in Blood by Automated count [facility] Monocytes/100 leukoc ytes in Blood by Automated count [facility] Neutrophils [#/volum e] in Blood by Automated count [facility] Neutrophils/100 leuk ocytes in Blood by Automated count [facility] Nuclear Ab [Titer] in Serum [facility] Work Phone: Nucleated erythrocyt es [Presence] in Blood by Automated count [facility] Patient Education [facility] Work Phone: Patient referral [facility] Work Phone: Platelet mean volume [Entitic volume] in Blood by Automated count [facility] Platelets [#/volume] in Blood [facility] End: 08-21-2023 [facility] Transthoracic [facility] Service Area Work Phone: Comment on above: Once for 1 Occurrences starting 08/21/19 24 until 08/21/2023 [facility] Immunizations Immunization Date Immunization Notes Care Provider Rola marcus 06-29-2023 influenza, high dose seasonal, preservative-free Jazmin العلي Other [employer] Other 06-29-2023 influenza virus vaccine, unspecified formulation DO Jazmin العلي Work Phone: [facility] 05-26-2022 Fluad Quadrivalent 0 .5 ML Intramuscular Prefilled Syringe Jazmin العلي Work Phone: [facility] 250 DO Work Phone: 05-26-2022 influenza virus vaccine, split virus (incl. purified surface antigen) Jazmin العلي Other [employer] Other 05-26-2022 influenza virus vaccine, unspecified formulation Debbie Mac MD Work Phone: [facility] 11-13-2021 Comirnaty 30 MCG/0.3 ML Intramuscular Suspension Jazmin العلي Work Phone: [facility] [facility] 250 DO Work Phone: 11-13-2021 COVID-19 mRNA, Comirnaty (Pfizer) DO Jazmin العلي Work Phone: [facility] 07-11-2021 tetanus toxoid, redu maranda diphtheria toxoid, and acellular pertussis vaccine, adsorbed Jazmin العلي Work Phone: [facility] 06-14-2021 influenza virus vaccine, split virus (incl. purified surface antigen) Jazmin العلي Other [facility] [employer] Other 06-14-2021 influenza virus vaccine, unspecified formulation DO Jazmin العلي Work Phone: [facility] 10-07-2020 Pfizer-BioNTech COVID-19 Vacc 30 MCG/0.3ML Intramuscular Suspension Jazmin العلي Work Phone: [facility] Comment on above: Series: 09-17-2020 COVID-19 Vaccine Moderna - Documentation Purposes Only Jazmin العلي Other [facility] 09-17-2020 Pfizer-BioNTech COVID-19 Vacc 30 MCG/0.3ML Intramuscular Suspension Jazmin العلي Work Phone: [facility] Comment on above: Series: 05-20-2020 influenza, seasonal, injectable Jazmin العلي Work Phone: [facility] 250 DO Work Phone: Comment on above: Series: 05-05-2020 Flu Vaccine - Adult DO George العلي Work Phone: [facility] 05-05-2020 influenza virus vaccine, split virus (incl. purified surface antigen) Jazmin العلي Other [facility] [employer] Other 05-05-2020 influenza virus vaccine, unspecified formulation DO Jazmin العلي Work Phone: [facility] 05-05-2020 influenza, seasonal, injectable Jazmin العلي Work Phone: [facility] 05-20-2019 influenza, high dose seasonal, preservative-free Jazmin العلي Work Phone: [place] [address] DO Work Phone: 11-07-2018 pneumococcal polysaccharide vaccine, 23 valent Jazmin العلي Work Phone: [facility] Work Phone: 06-12-2018 influenza virus vaccine, split virus (incl. purified surface antigen) Jazmin العلي Other [facility] [employer] Other 06-12-2018 influenza virus vaccine, unspecified formulation DO Jazmin العلي Work Phone: [facility] 06-12-2018 Seasonal trivalent influenza vaccine, adjuvanted, preservative free Jazmin العلي Work Phone: [facility] DO Work Phone: 05-20-2018 influenza, injectabl e, quadrivalent, preservative free Jazmin [email or web address] Work Phone: [place] [address] DO Work Phone: 06-21-2017 diphtheria, tetanus toxoids and acellular pertussis vaccine, unspecified formulation Jazmin العلي Other [facility] 07-06-2016 pneumococcal conjuga te vaccine, 13 valent Jazmin العلي Other [facility] 07-06-2016 pneumococcal Conjuga te, unspecified formulation; Translations: [Need for prophylactic vaccination against Streptococcus pneumoniae (pneumococcus)] Jazmin العلي Other [facility] [employer] Other 03-20-2015 pneumococcal polysaccharide vaccine, 23 valent Jazmin [email or web address] Work Phone: [facility] Work Phone: Comment on above: Series: 03-20-2014 influenza virus vaccine, unspecified formulation Jazmin العلي Work Phone: [facility] Work Phone: 06-24-2013 tetanus and diphther ia toxoids, adsorbed, preservative free, for adult use (5 Lf of tetanus toxoid and 2 Lf of diphtheria toxoid) Jazmin العلي Other [facility] 09-05-2012 zoster vaccine, live Arlette العلي Work Phone: [facility] 250 DO Work Phone: 07-29-2008 pneumococcal polysaccharide vaccine, 23 valent Jazmin العلي Other [facility] Payers Date Payer Category Payer Medicare [id number] 2024 Self-pay [id number] 2022 Medicare [id number] 2022 Medicare (Managed Care) 1.2. [id number] 2022 Unknown 2020 Medicare [id number] 2009 Unknown [id number] 1959 Private Health Insurance [id number] 1942 Unknown [id number] 2.16.8 40.1.281780.3.579.2.647 1942 Unknown [id number] 2.16. 840.1.428028.3.579.2.356 1942 Unknown [id number] 2.16.84 0.1.028811.3.579.2.593 1942 Unknown [id number] 2.16.84 0.1.493931.3.579.2.593 1942 Unknown [id number] 2.16.84 0.1.974604.3.579.2.593 1942 Unknown [id number] 2.16.84 0.1.464674.3.579.2.593 1942 Unknown [id number] 2.16.84 0.1.652483.3.579.2.593 1942 Unknown [id number] 2.16.84 0.1.373628.3.579.2.593 1942 Unknown [id number] 2.16.84 0.1.964957.3.579.2.593 1942 Unknown [id number] 2.16.8 40.1.746710.3.579.2.1245 1942 Unknown [id number] 2.16. 840.1.912578.3.579.2.196 1942 Unknown [id number] 2.16. 840.1.632975.3.579.2.196 1942 Unknown [id number] 2.16. 840.1.389727.3.579.2.196 1942 Unknown [id number] 2.16. 840.1.308242.3.579.2.196 1942 Unknown [id number] 2.16. 840.1.057940.3.579.2.196 1942 Unknown [id number] 2.16. 840.1.024946.3.579.2.196 1942 Unknown [id number] 2.16. 840.1.126922.3.579.2.732 1942 Unknown [id number] 2.16. 840.1.478318.3.579.2.732 1942 Unknown [id number] 2.16. 840.1.938703.3.579.2.732 1942 Unknown [id number] 2.16. 840.1.371216.3.579.2.732 1942 Unknown [id number] 2.16. 840.1.043445.3.579.2.73 1942 Unknown [id number] 2.16. 840.1.104014.3.579.2.73 1942 Unknown [id number] 2.16. 840.1.083233.3.579.2.73 1942 Unknown [id number] 2.16. 840.1.337675.3.579.2. 1942 Unknown [id number] 2.16. 840.1.463052.3.579.2. 1942 Unknown [id number] 2.16. 840.1.135131.3.579.2. 1942 Unknown [id number] 2.16.8 40.1.625373.3.579.2.1245 1942 Unknown [id number] 2.16.8 40.1.045796.3.579.2.1245 1942 Unknown [id number] 2.16.8 40.1.612456.3.579.2.1245 1942 Unknown [id number] 2.16.8 40.1.590144.3.579.2.1245 1942 Unknown [id number] 2.16.8 40.1.148542.3.579.2.1245 1942 Unknown [id number] 2.16.8 40.1.627907.3.579.2.1245 1942 Unknown [id number] 2.16. 840.1.991169.3.579.2.1243 1942 Unknown [id number] 2.16. 840.1.096034.3.579.2.1243 1942 Unknown [id number] 2.16. 840.1.267394.3.579.2.1244 1942 Unknown [id number] 2.16. 840.1.745458.3.579.2.1244 1942 Unknown [id number] 2.16. 840.1.705363.3.579.2.1244 1942 Unknown [id number] 2.16. 840.1.602855.3.579.2.1244 1942 Unknown [id number] 2.16.8 40.1.745741.3.579.2.1259 1942 Unknown [id number] 2.16.8 40.1.441614.3.579.2.1259 Medicare [id number] Private Health Insurance [id number] Unknown [id number] 2.16.8 40.1.084339.3.579.2.531 Unknown [id number] 2.16.8 40.1.789783.3.579.2.531 Unknown [id number] 2.16.8 40.1.706600.3.579.2.531 Unknown [id number] 2.16.8 40.1.462756.3.579.2.531 Unknown [id number] 2.16.8 40.1.027990.3.579.2.531 Unknown [id number] 2.16.8 40.1.363638.3.579.2.531 Unknown [id number] 2.16.8 40.1.633148.3.579.2.531 Social History Date Type Detail Facility Start: 05-31-2023 End: 03-21-2024 No alcohol use No alcohol use -[facility] [address] DO Work Phone: Start: 08-22-2021 End: 05-31-2023 Tobacco smoking status NHIS Never smoked tobacco (finding) [facility] Start: 1940 Sex Assigned At Female [facility] Start: 05-31-2023 End: 03-21-2024 Sex Assigned At [facility] [employer] Other Start: 05-31-2023 End: 01-15-2024 Tobacco use and exposure Smokeless tobacco non-user [facility] Work Phone: Start: 05-31-2023 End: 02-23-2025 Alcohol intake Lifetime non-drinker (finding) [facility] Work Phone: Start: 1940 Sex Assigned At Not on file [facility] Work Phone: Start: 05-21-2023 End: 10-23-2024 Exposure to SARS-CoV-2 (event) Not sure [facility] How often to you hav e a drink containing alcohol? Never [facility] Start: 07-15-2022 How many standard drinks containing alcohol do you have on a typical day? Patient does not drink [facility] Work Phone: In the past 12 month s, was there a time when you were not able to pay the mortgage or rent on time? No [facility] Work Phone: Start: 04-23-2024 End: 01-23-2025 Sex Female (finding) [facility] Work Phone: Start: 02-21-2023 Alcohol Comment caffeine: none [facility] Medical Equipment Procedure Code Equipment Code Equipment Origin al Text Equipment Identifier Dates Insertion, pacemaker Endocardial pacing lead [id number] FDA Start: 06-29-2021 Insertion, pacemaker Endocardial pacing lead [id number] FDA Start: 06-29-2021 Insertion, pacemaker Dual-chambe r implantable pacemaker, rate-responsive [id number] FDA Start: 06-29-2021 Cystoscopy, with ureteral calculus manipulation and stent placement Polymeric ureteral stent [id number] FDA Start: 07-01-2021 Goals Date Patient Goal Desired Activity /State Personal health goal Functional Status Date Assessment Result Facility 01-23-2025 Functional status Patient at Baseline [facility] Work Phone: 07-24-2024 Functional status Patient at Baseline [facility] Work Phone: 07-03-2024 Functional status Patient at Baseline [facility] Work Phone: 06-30-2024 Functional status Disability Sta tus Patient at Baseline [facility] Work Phone: 03-27-2024 Are you deaf, or do you have serious difficulty hearing No 03/27/2024 1:02 PM Vera Figueroa, ROSA [facility] 03-27-2024 Are you blind, or do you have serious difficulty seeing, even when wearing glasses No 03/27/2024 1:02 PM Vera Figueroa, RN No [facility] Work Phone: 03-27-2024 Do you have serious difficulty walking or climbing stairs No 03/27/2024 1:02 PM Vera Figueroa, ROSA No [facility] Work Phone: 03-27-2024 Do you have difficul ty dressing or bathing No 03/27/2024 1:02 PM Vera Figueroa, ROSA No [facility] Work Phone: 03-27-2024 Because of a physica l, mental, or emotional condition, do you have difficulty doing errands alone such as visiting a physician's office or shopping No 03/27/2024 1:02 PM Vera Figueroa, ROSA No [facility] Work Phone: 06-02-2024 Functional status Patient at Baseline [facility] Work Phone: 09-21-2022 Functional status Patient at Baseline [facility] Work Phone: 09-06-2022 Functional status Patient at Baseline [facility] Work Phone: 09-02-2022 Functional status Bathing Patien t at Baseline [facility] Work Phone: Mental Status Date Assessment Result Facility 01-23-2025 Cognitive function Cognitive Sta tus Patient at Baseline [facility] Work Phone: 07-24-2024 Cognitive function Cognitive Sta tus Patient at Baseline [facility] Work Phone: 07-03-2024 Cognitive function Cognitive Sta tus Patient at Baseline [facility] Work Phone: 03-27-2024 Because of a physica l, mental, or emotional condition, do you have serious difficulty concentrating, remembering, or making decisions No 03/27/2024 1:02 PM EDT Vera Ang, RN [facility] Work Phone: 01-20-2024 Cognitive function Cognitive Sta tus Patient at Baseline [facility] Work Phone: 09-21-2022 Cognitive function Cognitive Sta tus Patient at Baseline [facility] Work Phone: 09-06-2022 Cognitive function Cognitive Sta tus Patient at Baseline [facility] Work Phone: Clinical Notes 06-21-2021 to 02-23-2025 Cristiana Chapa APRN-NORAH - 02/23/2025 3:00 PM EDTJoseph Sepulveda DPM - 02/12/2025 10:30 AM EDT Note Date & Type Note Facility 02-23-2025 History of Present illness Narrative Chief Complaint: Chief Complaint Patient presents with Follow-up Pacemaker check follow up Austin Golden is a 84 y.o. female that presents to the office today for cardiac follow-up. She follows with her primary imposer Dr. Mac and Dr. Medrano. She was added to my schedule today as a follow-up with Dr. Medrano. She has a PMH of persistent atrial fibrillation, high risk medication amiodarone, long-term anticoagulation Xarelto, hypertension, hyperlipidemia, tachybradycardia syndrome, dual-chamber pacemaker, cardiomyopathy. At last office visit with Dr. Medrano 10/23/2024 PVI ablation was recommended, orders were placed. She decided not to proceed with the procedure at that time. Recently admitted to [facility] 01/23/2025 with atrial flutter both RVR at which time metoprolol succinate, Cardizem were added to her medical regimen. It was also recommended that she proceed with PVI ablation. She reports she continues to feel fatigued and feels as though she is ready to proceed with PVI ablation. She denies any chest pain, chest pressure, chest tightness, shortness of breath, lightheadedness, dizziness or palpitations. Case was reviewed in office today with Dr. Medrano who recommends proceeding with PVI ablation at [facility]. Will proceed with previously placed CT scan and VIRA orders. Testing Reviewed EKG obtained in the office today and verified with Dr. Medrano shows atrial paced, LBBB HR 70 bpm, QT/Qtc 454/490 01/29/2025 device interrogation Battery longevity 5.4 years Atrial fibrillation burden < 1% 01/23/2025 labs; NA 139, K+ 3.9, BUN 27, creatinine 1.13, AST 23, ALT 19, Hgb 13, platelets 240, BNP 192, Problem List[1] Social History[2] Medical History[3] Current Medications[4] Patient has no known allergies. Family History[5] Surgical History[6] Review of systems Constitutional: No weight loss, fever, chills, weakness. Positive for fatigue HEENT: No visual loss, blurred vision, double vision or yellow sclerae Skin: No rash or itching Cardiovascular: No chest pain, pressure or discomfort, No palpitations or edema. Respiratory: No shortness of breath, cough or sputum Gastrointestinal: No nausea, vomiting or diarrhea. No bloody or dark tarry stools. Neurological: No headache, lightheadedness, dizziness, syncope. Musculoskeletal: No muscle, back pain, joint pain or stiffness. Hematologic: No anemia, bleeding or bruising. BP 122/60 (BP Location: Left arm, Patient Position: Sitting, BP Cuff Size: Adult) Pulse 69 Wt 59 kg (130 lb) BMI 26.26 kg/m Physical Exam Constitutional: Well developed, awake/alert x 3, no distress. Head/Neck: No JVD, No bruits Respiratory/Thorax: patent airways, CTAB, normal breath sounds with good expansion. Cardiovascular: Regular rate and rhythm, no murmurs, normal S1 and S2, Gastrointestinal: Non distended, soft, non-tender, no rebound tenderness or guarding. Extremities: No cyanosis, edema. Neurological: Alert and oriented x 3. Moves extremities spontaneous with purpose. Psychological: Appropriate mood and behavior Skin: Warm and Dry. No lesions or rashes. Assessment/Plan Persistent atrial fibrillation; recent hospital admission for atrial fibrillation RVR. Dr. Medrano recommends proceeding with PVI ablation as previously discussed. High risk medication; amiodarone Long-term anticoagulation; denies bleeding. Reports compliance. Continue Xarelto Dual-chamber pacemaker; device interrogation as noted above. Proceed with CT scan and VIRA orders as previously scheduled prior to PVI ablation. Follow in the office with Dr. Medrano after ablation. Please excuse any errors in grammar or translation related to dictation, voice recognition software was used to prepare this document. [1] Patient Active Problem List Diagnosis Diastolic heart failure Essential hypertension, benign Hyperlipemia Pacemaker Persistent atrial fibrillation (Multi) 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 (Multi) Sinus bradycardia Stage 3a chronic kidney disease (Multi) Anticoagulated Gallstones Hiatal hernia High risk medication use Never smoked any substance Single vessel coronary artery disease Shortness of breath BMI 30.0-30.9,adult Atrial flutter (Multi) NSTEMI (non-ST elevated myocardial infarction) (Multi) BMI 28.0-28.9,adult [2] Social History Tobacco Use Smoking status: Never Smokeless tobacco: Never Substance Use Topics Alcohol use: Never Drug use: Never [3] Past Medical History: Diagnosis Date Arrhythmia Heart failure Hyperlipidemia Hypertension [4] Current Outpatient Medications: acetaminophen (Tylenol) 325 mg capsule, Take 1 capsule (325 mg) by mouth. TAKE 1 TABLET EVERY 4 TO 6 HOURS NEEDED., Disp: , Rfl: amiodarone (Pacerone) 200 mg tablet, TAKE 1 TABLET BY MOUTH EVERY DAY, Disp: 90 tablet, Rfl: 1 atorvastatin (Lipitor) 40 mg tablet, Take 1 tablet (40 mg) by mouth once daily., Disp: , Rfl: calcium carbonate/vitamin D3 (CALCIUM 600 + D,3, ORAL), Take 600 mg by mouth., Disp: , Rfl: cholecalciferol (Vitamin D-3) 50 mcg (2,000 unit) capsule, Take 1 capsule (2,000 Units) by mouth once daily., Disp: , Rfl: dilTIAZem CD (Cardizem CD) 180 mg 24 hr capsule, Take 1 capsule (180 mg) by mouth once daily., Disp: 30 capsule, Rfl: 11 DULoxetine (Cymbalta) [address] capsule, Take 1 capsule (30 mg) by mouth once daily., Disp: , Rfl: furosemide (Lasix) 20 mg tablet, TAKE 1 TABLET BY MOUTH EVERY DAY, Disp: 90 tablet, Rfl: 3 metoprolol succinate XL (Toprol-XL) 50 mg 24 hr tablet, Take 1 tablet (50 mg) by mouth once daily. Do not crush or chew., Disp: , Rfl: multivitamin (Daily Multi-Vitamin) tablet, Take 1 tablet by mouth once daily., Disp: , Rfl: pantoprazole (ProtoNix) 40 mg EC tablet, Take 1 tablet (40 mg) by mouth once daily in the morning. Take before meals. Do not crush, chew, or split., Disp: , Rfl: rivaroxaban (Xarelto) 15 mg tablet, Take 1 tablet (15 mg) by mouth once daily in the evening. Take with meals., Disp: 90 tablet, Rfl: 3 rOPINIRole (Requip) 1 mg tablet, Take 1 tablet (1 mg) by mouth once daily at bedtime., Disp: , Rfl: [5] Family History Problem Relation Name Age of Onset Brain cancer Mother Other (arteriosclerotic cardiovascular disease) Father [6] Past Surgical History: Procedure Laterality Date CARDIAC CATHETERIZATION Left 03/22/2024 Procedure: Left Heart Cath; Surgeon: Sonu Mendez MD; Location[facility]; Service: Cardiovascular; Laterality: Left; CT ANGIO NECK 07/28/2020 CT NECK ANGIO W AND WO IV CONTRAST CT HEAD ANGIO W AND WO IV CONTRAST 07/28/2020 CT HEAD ANGIO W AND WO IV CONTRAST OTHER SURGICAL HISTORY 06/03/2021 Hernia repair OTHER SURGICAL HISTORY 06/03/2021 Appendectomy OTHER SURGICAL HISTORY 06/03/2021 Foot surgery OTHER SURGICAL HISTORY 06/03/2021 Hysterectomy OTHER SURGICAL HISTORY 10/19/2021 Pacemaker insertion documented in this encounter [facility] Work Phone: 02-12-2025 History of Present illness Narrative Patient: Austin Golden : 1940 PCP: Jazmin العلي DO SUBJECTIVE This is a 84 y.o. [...] hammertoe type deformities has tried accommodative shoe gear with some improvement still has pain particularly for the right 2nd and 3rd digits Allergies: Allergies Allergen Reactions Fentanyl Other Reaction(s): [...] by mouth Daily, Disp: , Rfl: HYDROcodone-acetaminophen (Peetz) 10-325 MG tablet, 1 tablet, Disp: , [...] Resource Strain: Low Risk (03/21/2024) Received from [facility] Overall Financial Resource Strain (CARDIA) Difficulty of Paying Living Expenses: Not hard at all Food Insecurity: Not on file Transportation Needs: No Transportation Needs (03/24/2024) Received from [facility] PRAPARE - Transportation Lack of Transportation (Medical): No Lack of Transportation (Non-Medical): No Physical Activity: Not on file Stress: Not on file Social Connections: Not on file Intimate Partner Violence: Unknown (02/14/2024) Received from [facility] [place] Safety & Environment Fear of Current or Ex-Partner: Not on file Emotionally Abused: Not on file Physically Abused: Not on file Sexually Abused: Not on file Physically or Sexually Abused: Not on file Housing Stability: Low Risk (03/21/2024) Received from [facility] Housing Stability Vital Sign Unable to [...] palpitations, irregular rhythms. Positive history of atrial fibrillation and on blood thinner OBJECTIVE LE EXAM: DERM: Elongated thick yellow crumbly nails digits 1 through 10. diminished hair growth b/l feet. Rubor to noted PIPJ regions digits 2 through 5 bilaterally VASC: Positive palpable pedal pulses bilaterally NEURO: Gross sensation intact to bilateral feet ORTHO: Positive pain on palpation to toenails of the left 1,2,3,4,5 toes and right 1,2,3,4,5 toes Notable rigid contracture of the right 2nd and 3rd digital deformities with flexion deformities toes 2 through 5 bilaterally ASSESSMENT 1. Acquired deformity of left toe 2. Acquired deformity of right toe 3. Pain due to onychomycosis of toenails of both feet PLAN Discussed proper foot care with patient today. Debride nails in length and thickness digits 1 through 10 Discussed digital deformities and particularly right 2nd and 3rd digital deformities and discussed possible digital deformity surgery including PIPJ arthrodesis with K-wire and postoperative timeframe in detail patient may consider otherwise dispensed toe spacer today for conservative care and will discuss on follow-up as patient is interested in possible surgery in the near future She continues to wear accommodative shoe gear Joseph Sepulveda DPM documented in this encounter [facility] 01-23-2025 Consult note Note Date/Time January 23, 2025 11:20am [facility] [address] [place] [address] Cardiology Consult Note Signed Patient: Austin Golden MR#: [id number] : 1940 Acct:[id number] Age/Sex: 84 / F Adm Date: 5 Loc: 3T Room: [address] [place] [address] Type: ADM IN Attending Dr: Fahad Kim DO Copies to: DO Jimena Carias MD, FACC Fahad Kim, DO~ Cardiology HPI History of Present Illness Consult Date: 01/23/25 Reason for Consult: Atrial fibrillation with RVR HPI: Ms. Golden is a 84 year old female who is being seen at request of the hospitalist for management of atrial fibrillation with RVR. Patient is known tohave sick sinus syndrome and has a pacemaker in place. She has history of atrial flutter which has been treated with amiodarone and Xarelto along with diltiazem. She is known to have preserved ejection fraction based on the last echocardiogram in January 2024. She had cardiac catheterization in the last coupleof years which revealed mild disease involving diagonal. Her ejection fraction is 55%. She has hyperlipidemia on statin therapy. Patient has stage IIIa chronic kidney disease. The patient has been doing very well for the last several months and only 2 days ago started having symptoms of increasing shortness of breath. There is no indication of viral infection such as flu or RSV or COVID. She had no fever or chills and no chest pain. Denied any lower extremity edema. Because of the breathlessness she came into the hospital and was found to be in atrial fibrillation/flutter with rapid ventricular response. She was placed on Cardizem drip and heart rate became under better control. Sheis presently resting comfortably. The patient was evaluated electrophysiology at [facility] Dr. Medrano and ablation was discussed. She is not scheduled. In the past she has failed dofetilide and sotalol. She is open for the idea of having ablation for atrial fibrillation. After detailed discussions about the subject patient is agreeableto be referred back to Dr. DAMICO for the ablation in the near future. The patient will benefit from having more heart rate control, will add metoprolol succinate 50 mg daily to present dose diltiazem 180 mg daily, wean off Cardizem drip, continue amiodarone at 200 mg daily and continue Xarelto. I will increase the Lasix up to 40 mg daily. Her chest x-ray revealed bilateral small pleural effusions. Review of Systems Review of Systems Review of systems: Outside of what is covered in HPI above review of system was unremarkable, more specifically no febrile illnesses, no bleeding complications related to Xarelto and no constitutional symptoms. REPLACED BY [facility] Medical History (Updated 01/23/25 @ 11:18 by Jimena Smith MD) Cellulitis of left leg without foot Medicare annual wellness visit, subsequent Chronic kidney disease Atrial fibrillation Echo: LVEF 55%, VALERIE, normal RV size/function, RVSP 21 - 01/2024, PFT: FEV1/FVC 71, TLV 93%, DLCO 59% - 09/2024 Atrial fibrillation with rapid ventricular response Acute kidney injury Elevated troponin Atypical chest pain Elevated troponin Esophageal obstruction ASHD (arteriosclerotic heart disease) LHC: LAD 40-50%, diagonal 70%, RCA 40-50% - 03/2024, Echo: LVEF 55%, VALERIE, normal RV size/function, RVSP 21 - 01/2024 Dyspnea on exertion Problem List clean-up per request of Phys. EHR Cmte Anxiety High risk medication use Esophageal dysmotility Chronic venous insufficiency of lower extremity GERD (gastroesophageal reflux disease) Chronic heart failure with preserved ejection fraction (HFpEF) Echo: LVEF 55%, VALERIE, RVSP 21, normal RV size/function - 01/2024 Sick sinus syndrome Pulmonary nodule CT: no nodules detected - 10/2022, Primary hypertension Paroxysmal atrial fibrillation Osteopenia of [...] Phys. EHR Cmte Surgical History History of repair of hiatal hernia (~2014) History of left heart catheterization (~03/2024) LHC: LAD 40-50%, diagonal 70%, RCA 40-50%, normal LVEF - 03/2024 History of cholecystectomy 2022 History of colonoscopy [...] Social History Comments: independent living at [facility] Medications and Allergies Allergies No Known Allergies Allergy (Verified 01/22/25 18:15) Home Medications rivaroxaban 15 mg tablet (Xarelto) 15 mg PO HS 12/05/21 [History Confirmed 01/22/25] calcium carbonate (Calcium 600) 600 mg PO DAILY 01/18/24 [History Confirmed 01/22/25] acetaminophen 325 mg capsule 325 mg PO Q6HR PRN fever or pain 04/01/24 [History Confirmed 01/22/25] atorvastatin 40 mg tablet 40 mg PO DAILY #100 tabs 04/01/24 [Rx Confirmed 01/22/25] multivitamin 1 tab PO DAILY 04/01/24 [History Confirmed 01/22/25] magnesium oxide 400 mg PO DAILY 04/08/24 [History Confirmed 01/22/25] furosemide 20 mg tablet 20 mg PO DAILY #30 tabs 05/28/24 [Rx Confirmed 01/22/25] ropinirole 1 mg tablet See Rx Instructions .Route .COMPLEX #90 tabs 06/09/24 [Rx Confirmed 01/22/25] amiodarone 200 mg tablet 200 mg PO DAILY 09/10/24 [History Confirmed 01/22/25] diltiazem HCl 180 mg capsule,extended release 24 hr 180 mg PO DAILY #30 caps 09/17/24 [Rx Confirmed 01/22/25] duloxetine 30 mg capsule,delayed release 30 mg PO DAILY 30 days #30 caps 12/24/24 [Rx Confirmed 01/22/25] mupirocin 2 % topical ointment 1 applic topical BID 10 days #22 grams 01/13/25 [Rx Confirmed 01/22/25] doxycycline hyclate 100 mg capsule 100 mg PO BID 7 days #14 caps 01/21/25 [Rx Confirmed 01/22/25] melatonin 10 mg capsule 20 mg PO QHS 01/23/25 [History Confirmed 01/23/25] Exam Physical Exam Vital Signs: Temp Pulse Resp BP Pulse Ox O2 Del Method O2 Flow Rate 97.5 F L 107 H 18 116/74 95 Room Air 2 01/23/25 10:49 01/23/25 10:49 01/23/25 10:49 01/23/25 10:49 01/23/25 10:49 01/23/25 10:49 01/23/25 05:19 Const General: cooperative, healthy appearing, comfortable and no acute distress Nutritional Appearance: average body habitus Orientation: alert, awake and oriented x3 HEENT Head: normal to inspection, normocephalic and atraumatic Ears: hearing grossly normal bilaterally Nose: external nose normal Face and sinus: normal facial exam Eyes Conjunctivae: conjunctivae normal Pupils: PERRL Neck Neck: trachea midline and supple Neck mass: No Thyroid: thyroid normal Carotids: normal carotid upstroke Resp Effort & Inspection: normal respiratory effort Auscultation: clear to auscultation bilaterally Cardio Palpation: normal PMI Rate: tachycardic Rhythm: abnormal rhythm irregularly irregular Heart Sounds: S1 normal and S2 normal GI Palpation: soft and no hepatosplenomegaly Auscultation: normal bowel sounds Extrem General: no clubbing, cyanosis or edema Results - Cardiology Labs 01/23/25 07:10 01/23/25 07:10 Lab results: Cardiac Enzymes 01/22/25 01/23/25 Range/Units 20:54 07:10 AST 23 24 (13-39) U/L Total Creatine Kinase 41 (30-223) U/L B-Natriuretic Peptide 192.0 H (5-100) pg/mL CBC 01/22/25 01/23/25 Range/Units 20:54 07:10 RBC 4.31 4.06 (3.60-5.00) x10E6/uL Hgb 13.3 12.4 (11.8-15.4) g/dL Hct 38.5 36.5 (34.0-46.4) % Plt Count 240 224 (150-450) x10E3/uL Neut # (Auto) 5.5 5.2 (1.8-7.7) x10E3/uL Lymph # (Auto) 1.4 1.1 (1.00-4.8) x10E3/uL [place] # (Auto) 0.6 0.5 (0.0-0.8) x10E3/uL Eos # (Auto) 0.2 0.2 (0.0-0.45) x10E3/uL Baso # (Auto) 0.1 0.1 (0.0-0.2) x10E3/uL Comprehensive Metabolic Panel 01/22/25 01/23/25 Range/Units 20:54 07:10 Sodium 139 140 (136-145) mmol/L Potassium 3.9 3.7 (3.5-5.1) mmol/L Chloride 105 105 (98-107) mmol/L Carbon Dioxide 25.7 27.3 (21.0-31.0) mmol/L BUN 27 H 25 (7-25) mg/dL Creatinine 1.13 1.20 (0.60-1.20) mg/dL Glucose 103 H 85 (70-100) mg/dL Calcium 9.2 8.6 (8.6-10.3) mg/dL AST 23 24 (13-39) U/L ALT 19 20 (7-52) U/L Alkaline Phosphatase 87 71 (34-104) U/L Total Protein 6.9 6.1 L (6.4-8.9) gm/dL Albumin 4.0 3.6 (3.5-5.7) gm/dL Intake and Output 01/22/25 01/23/25 01/23/25 23:59 07:59 15:59 Intake Total 200 / 300 100 / 300 Balance 200 / 300 100 / 300 Intake: IV 100 / 100 dilTIAZem 100 MG -*NaCl* 100 mg 100 / 100 In 100 ml @ 10 MG/HR 10 mls/hr IV .Q10H KWAN Rx#:[id number] Oral 200 / 200 Other: # Voids 0 # Unmeasured Voids 2 Weight 58.7 kg 58.2 kg Date of Last Bowel Movement 01/22/25 01/22/25 Patient Weight 01/23/25 23:59 Weight 58.2 kg Lab 01/22/25 20:54 PT 13.9 H INR 1.2 APTT 32.2 EKG Interpretations EKG Attestation EKG: I reviewed this ECG and interpreted as documented below: (Atrial flutter with variable AV conduction, left bundle branch block) A&P - Cardiology (1) Chronic kidney disease: Assessment/Problem Details: Stage IIIa Plan: Avoid nephrotoxic medications Qualifiers: Chronic kidney disease stage: stage 3 (moderate) Chronic kidney diseasestage 3 subtype: stage 3b (GFR 30-44) Qualified Code(s): N18.32 - Chronic kidney disease, stage 3b Code(s): N18.9 - Chronic kidney disease, unspecified (2) ASHD (arteriosclerotic heart disease): Assessment/Problem Details: Moderate disease involving all 3 coronary arteries not requiring intervention Plan: Aggressive risk factors modifications, continue statin, utilize baby aspirin twice weekly Code(s): I25.10 - Atherosclerotic heart disease of [place] coronary artery without angina pectoris (3) Esophageal dysmotility: Plan: Patient follows with gastroenterology Code(s): K22.4 - Dyskinesia of esophagus (4) Sick sinus syndrome: Assessment/Problem Details: Patient has a pacemaker in place Plan: Continue to monitor the pacemaker to the pacemaker clinic Code(s): I49.5 - Sick sinus syndrome (5) Hypercholesterolemia: Plan: Continue statin Code(s): E78.00 - Pure hypercholesterolemia, unspecified (6) Diastolic heart failure: Assessment/Problem Details: Aggravated by atrial fibrillation with RVR leading to bilateral pleural effusion Plan: Controlled heart rate, heart rate still normal sinus rhythm with ablation, increase Lasix up to 40 mg daily Code(s): I50.30 - Unspecified diastolic (congestive) heart failure (7) Persistent atrial fibrillation: Assessment/Problem Details: Presently heart rate is still above target on Cardizem drip Plan: Continue diltiazem 180 mg daily, add metoprolol succinate 50 mg daily, wean off IV Cardizem, patient will be referred back to electrophysiology at [facility] for ablation of atrial fibrillation, the patient is agreeable, arrangements will be made through our office Code(s): I48.19 - Other persistent atrial fibrillation Documented By: Jimena Smith MD, [facility]ATION[facility] 5 [id number] Signed By: <Electronically signed by MD CLAUDIA Smith> 01/23/25 [facility] Work Phone: 1(523) 553-264706-06-2025 [place] [address] Cardiology Consult Note Signed Patient: Austin Golden MR#: [id number] : 1940 Acct:[id number] Age/Sex: 84 / F Adm Date: 5 Loc: Room: [address] [place] [address] Type: ADM IN Attending Dr: Fahad Kim DO Copies to: DO Jimena Carias MD, [facility] Fahad Kim, ~ Cardiology HPI History of Present Illness Consult Date: 01/23/25 Reason for Consult: Atrial fibrillation with RVR HPI: Ms. Golden is a 84 year old female who is being seen at request of the hospitalist for management of atrial fibrillation with RVR. Patient is known tohave sick sinus syndrome and has a pacemaker in place. She has history of atrial flutter which has been treated with amiodarone and Xarelto along with diltiazem. She is known to have preserved ejection fraction based on the last echocardiogram in January 2024. She had cardiac catheterization in the last coupleof years which revealed mild disease involving diagonal. Her ejection fraction is 55%. She has hyperlipidemia on statin therapy. Patient has stage IIIa chronic kidney disease. The patient has been doing very well for the last several months and only 2 days ago started having symptoms of increasing shortness of breath. There is no indication of viral infection such as flu or RSV or COVID. She had no fever or chills and no chest pain. Denied any lower extremity edema. Because of the breathlessness she came into the hospital and was foundto be in atrial fibrillation/flutter with rapid ventricular response. She was placed on Cardizem drip and heart rate became under better control. Sheis presently resting comfortably. The patient was evaluated electrophysiology at [facility] Dr. Medrano and ablation was discussed. She is not scheduled. In the past she has failed dofetilide and sotalol. She is open for the idea of having ablation for atrial fibrillation. After detailed discussions about the subject patient is agreeableto be referred back to Dr. DAMICO for the ablation in the near future. The patient will benefit from having more heart rate control, will add metoprolol succinate 50 mg daily to present dose diltiazem 180 mg daily, wean off Cardizem drip, continue amiodarone at 200 mg daily and continue Xarelto. I will increase the Lasix up to 40 mg daily. Her chest x-ray revealed bilateral small pleural ef fusions. Review of Systems Review of Systems Review of systems: Outside of what is covered in HPI above review of system was unremarkable, more specifically no febrile illnesses, no bleeding complications related to Xarelto and no constitutional symptoms. REPLACED BY [facility] Medical History (Updated 01/23/25 @ 11:18 by Jimena Smith MD) Cellulitis of left leg without foot Medicare annual wellness visit, subsequent Chronic kidney disease Atrial fibrillation Echo: LVEF 55%, VALERIE, normal RV size/function, RVSP 21 - 01/2024, PFT: FEV1/FVC 71, TLV 93%, DLCO 59% - 09/2024 Atrial fibrillation with rapid ventricular response Acute kidney injury Elevated troponin Atypical chest pain Elevated troponin Esophageal obstruction ASHD (arteriosclerotic heart disease) LHC: LAD 40-50%, diagonal 70%, RCA 40-50% - 03/2024, Echo: LVEF 55%, VALERIE, normal RV size/function, RVSP 21 - 01/2024 Dyspnea on exertion Problem List clean-up per request of Phys. EHR Cmte Anxiety High risk medication use Esophageal dysmotility Chronic venous insufficiency of lower extremity GERD (gastroesophageal reflux disease) Chronic heart failure with preserved ejection fraction (HFpEF) Echo: LVEF 55%, VALERIE, RVSP 21, normal RV size/function - 01/2024 Sick sinus syndrome Pulmonary nodule CT: no nodules detected - 10/2022, Primary hypertension Paroxysmal atrial fibrillation Osteopenia of [...] List clean-up per request of Phys. [facility]HR [facility] COVID[facility] 2019 Problem List clean-up per request of Phys. EHR [facility] Atrial fibrillation with RVR Problem List clean-up per request of Phys. EHR Cmte Hernia of abdominal wall Problem List clean-up per request of Phys. EHR Cmte Surgical History History of repair of hiatal hernia (~2014) History of left heart catheterization (~03/2024) LHC: LAD 40-50%, diagonal 70%, RCA 40-50%, normal LVEF - 03/2024 History of cholecystectomy 2022 History of colonoscopy 2011 History of cardiac catheterization Problem List clean-up per request of Phys. EHR [facility] H/O eye surgery right eye Problem List clean-up per request of Phys. EHR Cmte History of cataract surgery marybeth eye Problem List clean-up per request of Phys. EHR [facility] History of appendectomy Problem List clean-up per request of Phys. EHR [facility] History of tonsillectomy Problem List clean-up per request of Phys. EHR Cmte H/O foot surgery left Problem List clean-up per request of Phys. EHR Cmte History of hysterectomy Problem List clean-up per request of Phys. EHR [facility] Family History Father Heart & renal disease, hypertensive, with heart fail/chron kidney dis Depression Sister Heart disease Mother Brain tumor Father Mother Social History Smoking Status: Never smoker Substance Use Type: None Substance Abuse Comment: etoh occasional Social History Comments: independent living [facility] Medications and Allergies Allergies No Known Allergies Allergy (Verified 01/22/25 18:15) Home Medications rivaroxaban 15 mg tablet (Xarelto) 15 mg PO HS 12/05/21 [History Confirmed 01/22/25] calcium carbonate (Calcium 600) 600 mg PO DAILY 01/18/24 [History Confirmed 01/22/25] acetaminophen 325 mg capsule 325 mg PO Q6HR PRN fever or pain 04/01/24 [History Confirmed 01/22/25] atorvastatin 40 mg tablet 40 mg PO DAILY #100 tabs 04/01/24 [Rx Confirmed 01/22/25] multivitamin 1 tab PO DAILY 04/01/24 [History Confirmed 01/22/25] magnesium oxide 400 mg PO DAILY 04/08/24 [History Confirmed 01/22/25] furosemide 20 mg tablet 20 mg PO DAILY #30 tabs 05/28/24 [Rx Confirmed 01/22/25] ropinirole 1 mg tablet See Rx Instructions .Route .COMPLEX #90 tabs 06/09/24 [Rx Confirmed 01/22/25] amiodarone 200 mg tablet 200 mg PO DAILY 09/10/24 [History Confirmed 01/22/25] diltiazem HCl 180 mg capsule,extended release 24 hr 180 mg PO DAILY #30 caps 09/17/24 [Rx Xvcgppwrw79/05/25] duloxetine 30 mg capsule,delayed release 30 mg PO DAILY 30 days #30 caps 12/24/24 [Rx Confirmed 01/22/25] mupirocin 2 % topical ointment 1 applic topical BID 10 days #22 grams 01/13/25 [Rx Confirmed 01/22/25] doxycycline hyclate 100 mg capsule 100 mg PO BID 7 days #14 caps 01/21/25 [Rx Confirmed 01/22/25] melatonin 10 mg capsule 20 mg PO QHS 01/23/25 [History Confirmed 01/23/25] Exam Physical Exam Vital Signs: Temp Pulse Resp BP Pulse Ox O2 Del Method O2 Flow Rate 97.5 F L 107 H 18 116/74 95 Room Air 2 01/23/25 10:49 01/23/25 10:49 01/23/25 10:49 01/23/25 10:49 01/23/25 10:49 01/23/25 10:49 01/23/25 05:19 Const General: cooperative, healthy appearing, comfortable and no acute distress Nutritional Appearance: average body habitus Orientation: alert, awake and oriented x3 HEENT Head: normal to inspection, normocephalic and atraumatic Ears: hearing grossly normal bilaterally Nose: external nose normal Face and sinus: normal facial exam Eyes Conjunctivae: conjunctivae normal Pupils: PERRL Neck Neck: trachea midline and supple Neck mass: No Thyroid: thyroid normal Carotids: normal carotid upstroke Resp Effort & Inspection: normal respiratory effort Auscultation: clear to auscultation bilaterally Cardio Palpation: normal PMI Rate: tachycardic Rhythm: abnormal rhythm irregularly irregular Heart Sounds: S1 normal and S2 normal GI Palpation: soft and no hepatosplenomegaly Auscultation: normal bowel sounds Extrem General: no clubbing, cyanosis or edema Results - Cardiology Labs 01/23/25 07:10 01/23/25 07:10 Lab results: Cardiac Enzymes 01/22/25 01/23/25 Range/Units 20:54 07:10 AST 23 24 (13-39) U/L Total Creatine Kinase 41 (30-223) U/L B-Natriuretic Peptide 192.0 H (5-100) pg/mL CBC 01/22/25 01/23/25 Range/Units 20:54 07:10 RBC 4.31 4.06 (3.60-5.00) x10E6/uL Hgb 13.3 12.4 (11.8-15.4) g/dL Hct 38.5 36.5 (34.0-46.4) % Plt Count 240 224 (150-450) x10E3/uL Neut # (Auto) 5.5 5.2 (1.8-7.7) x10E3/uL Lymph # (Auto) 1.4 1.1 (1.00-4.8) x10E3/uL [place] # (Auto) 0.6 0.5 (0.0-0.8) x10E3/uL Eos # (Auto) 0.2 0.2 (0.0-0.45) x10E3/uL Baso # (Auto) 0.1 0.1 (0.0-0.2) x10E3/uL Comprehensive Metabolic Panel 01/22/25 01/23/25 Range/Units 20:54 07:10 Sodium 139 140 (136-145) mmol/L Potassium 3.9 3.7 (3.5-5.1) mmol/L Chloride 105 105 (98-107) mmol/L Carbon Dioxide 25.7 27.3 (21.0-31.0) mmol/L BUN 27 H 25 (7-25) mg/dL Creatinine 1.13 1.20 (0.60-1.20) mg/dL Glucose 103 H 85 (70-100) mg/dL Calcium 9.2 8.6 (8.6-10.3) mg/dL AST 23 24 (13-39) U/L ALT 19 20 (7-52) U/L Alkaline Phosphatase 87 71 (34-104) U/L Total Protein 6.9 6.1 L (6.4-8.9) gm/dL Albumin 4.0 3.6 (3.5-5.7) gm/dL Intake and Output 01/22/25 01/23/25 01/23/25 23:59 07:59 15:59 Intake Total 200 / 300 100 / 300 Balance 200 / 300 100 / 300 Intake: IV 100 / 100 dilTIAZem 100 MG -*NaCl* 100 mg 100 / 100 In 100 ml @ 10 MG/HR 10 mls/hr IV .Q10H [facility] Rx#:[id number] Oral 200 / 200 Other: # Voids 0 # Unmeasured Voids 2 Weight 58.7 kg 58.2 kg Date of Last Bowel Movement 01/22/25 01/22/25 Patient Weight 01/23/25 23:59 Weight 58.2 kg Lab 01/22/25 20:54 PT 13.9 H INR 1.2 APTT 32.2 EKG Interpretations EKG Attestation EKG: I reviewed this ECG and interpreted as documented below: (Atrial flutter with variable AV conduction, left bundle branch block) A&P - Cardiology (1) Chronic kidney disease: Assessment/Problem Details: Stage IIIa Plan: Avoid nephrotoxic medications Qualifiers: Chronic kidney disease stage: stage 3 (moderate) Chronic kidney diseasestage 3 subtype: stage 3b (GFR 30-44) Qualified Code(s): N18.32 - Chronic kidney disease, stage 3b Code(s): N18.9 - Chronic kidney disease, unspecified (2) ASHD (arteriosclerotic heart disease): Assessment/Problem Details: Moderate disease involving all 3 coronary arteries not requiring intervention Plan: Aggressive risk factors modifications, continue statin, utilize baby aspirin twice weekly Code(s): I25.10 - Atherosclerotic heart disease of [place] coronary artery without angina pectoris (3) Esophageal dysmotility: Plan: Patient follows with gastroenterology Code(s): K22.4 - Dyskinesia of esophagus (4) Sick sinus syndrome: Assessment/Problem Details: Patient has a pacemaker in place Plan: Continue to monitor the pacemaker to the pacemaker clinic Code(s): I49.5 - Sick sinus syndrome (5) Hypercholesterolemia: Plan: Continue statin Code(s): E78.00 - Pure hypercholesterolemia, unspecified (6) Diastolic heart failure: Assessment/Problem Details: Aggravated by atrial fibrillation with RVR leading to bilateral pleural effusion Plan: Controlled heart rate, heart rate still normal sinus rhythm with ablation, increase Lasix up to 40 mg daily Code(s): I50.30 - Unspecified diastolic (congestive) heart failure (7) Persistent atrial fibrillation: Assessment/Problem Details: Presently heart rate is still above target on Cardizem drip Plan: Continue diltiazem 180 mg daily, add metoprolol succinate 50 mg daily, wean off IV Cardizem, patient will be referred back to electrophysiology at [facility] for ablation of atrial fibrillation, the patient is agreeable, arrangements will be made through our office Code(s): I48.19 - Other persistent atrial fibrillation Documented By: Jimena Smith MD, [facility] 1110 Signed By: 01/23/[address] [place], [place] [id number] History and physical note Author Ángel Minaya [facility] Note Date/Time January 22, 2025 11:17 pm [facility] [address] [place] [address] Hospitalist H&P Signed Patient: Austin Golden MR#: [id number] : 1940 Acct:[id number] Age/Sex: 84 / F Adm Date: 5 Loc: ER Room: Type: [facility] ER Attending Dr: Copies to: MD Jazmin Connor DO Thomas D Kramer Jr, MD~ HPI DATE OF EXAMINATION: 01/22/25 CHIEF COMPLAINT: Shortness of breath HISTORY OF PRESENT ILLNESS: This is a 84-year-old female with significant past medical history of atrial fibrillation, CKD, coronary artery disease, anxiety, GERD, pulmonary hypertension, STONEY, hyperlipidemia, depression, hypertension, presented to [facility] ED with chief complaints of worsening shortness of breath for few days before presentation with fatigue and generalized weakness. Patient denies any fever or chills or chest pain or palpitation. In the ED she was found to be tachycardic with A-fib and RVR and was started on Cardizem drip. Lab work shows no leukocytosis normal hemoglobin around baseline, normal electrolytes potassium 3.9, normal creatinine, magnesium2.1, normal liver enzymes, BNP 192 and troponin of 15, chest x-ray-small pleuraleffusions EKG shows atrial fibrillation with RVR and left bundle branch block. Review of Systems Review of Systems All other systems reviewed & are negative unless noted below or in HPI REPLACED BY [facility] Medical History (Updated 01/22/25 @ 23:17 by Ángel Minaya MD) Cellulitis of left leg without foot Medicare annual wellness visit, subsequent Chronic kidney disease Atrial fibrillation Echo: LVEF 55%, VALERIE, normal RV size/function, RVSP 21 - 01/2024, PFT: FEV1/FVC 71, TLV 93%, DLCO 59% - 09/2024 Atrial fibrillation with rapid ventricular response Acute kidney injury Elevated troponin Atypical chest pain Elevated troponin Esophageal obstruction ASHD (arteriosclerotic heart disease) LHC: LAD 40-50%, diagonal 70%, RCA 40-50% - 03/2024, Echo: LVEF 55%, VALERIE, normal RV size/function, RVSP 21 - 01/2024 Dyspnea on exertion Problem List clean-up per request of Phys. EHR Cmte Anxiety High risk medication use Esophageal dysmotility Chronic venous insufficiency of lower extremity GERD (gastroesophageal reflux disease) Chronic heart failure with preserved ejection fraction (HFpEF) Echo: LVEF 55%, VALERIE, RVSP 21, normal RV size/function - 01/2024 Sick sinus syndrome Pulmonary nodule CT: no nodules detected - 10/2022, Primary hypertension Paroxysmal atrial fibrillation Osteopenia of [...] List clean-up per request of Phys. EHR [facility] History of cardiac pacemaker in situ Presbyesophagus Hiatal hernia Restless leg Hyperlipemia Problem List clean-up per request of Phys. EHR Cmte CHF (congestive heart failure) Problem List clean-up per request of Phys. EHR Cmte Kidney stones removal of kidney stone R flank in 2021 Problem List clean-up per request of Phys. EHR [facility] Pacemaker Problem List clean-up per request of Phys. EHR Cmte Atrial fibrillation, persistent Problem List clean-up per request of Phys. EHR Cmte COVID-19 2019 Problem List clean-up per request of Phys. EHR [facility] Atrial fibrillation with RVR Problem List clean-up per request of Phys. EHR [facility] Hernia of abdominal wall Problem List clean-up per request of Phys. EHR [facility] Surgical History History of repair of hiatal hernia (~2014) History of left heart catheterization (~03/2024) LHC: LAD 40-50%, diagonal 70%, RCA 40-50%, normal LVEF - 03/2024 History of cholecystectomy 2022 History of colonoscopy 2011 History of cardiac catheterization Problem List clean-up per request of Phys. EHR [facility] H/O eye surgery right eye Problem List clean-up per request of Phys. EHR [facility] History of cataract surgery marybeth eye Problem List clean-up per request of Phys. EHR [facility] History of appendectomy Problem List clean-up per request of Phys. EHR [facility] History of tonsillectomy Problem List clean-up per request of Phys. EHR [facility] H/O foot surgery left Problem List clean-up per request of Phys. EHR Cmte History of hysterectomy Problem List clean-up per request of Phys. EHR [facility] Family History Father Heart & renal disease, hypertensive, with heart fail/chron kidney dis Depression Sister Heart disease Mother Brain tumor Father Mother Social History Smoking Status: Never smoker Substance Use Type: None Substance Abuse Comment: etoh occasional Social History Comments: independent living at [facility] Medications and Allergies Allergies No Known Allergies Allergy (Verified 01/22/25 18:15) Home Medications rivaroxaban 15 mg tablet (Xarelto) 15 mg PO HS 12/05/21 [History Confirmed 01/22/25] calcium carbonate (Calcium 600) 600 mg PO DAILY 01/18/24 [History Confirmed 01/22/25] acetaminophen 325 mg capsule 325 mg PO Q6HR PRN fever or pain 04/01/24 [History Confirmed 01/22/25] atorvastatin 40 mg tablet 40 mg PO DAILY #100 tabs 04/01/24 [Rx Confirmed 01/22/25] multivitamin 1 tab PO DAILY 04/01/24 [History Confirmed 01/22/25] magnesium oxide 400 mg PO DAILY 04/08/24 [History Confirmed 01/22/25] furosemide 20 mg tablet 20 mg PO DAILY #30 tabs 05/28/24 [Rx Confirmed 01/22/25] ropinirole 1 mg tablet See Rx Instructions .Route .COMPLEX #90 tabs 06/09/24 [Rx Confirmed 01/22/25] amiodarone 200 mg tablet 200 mg PO DAILY 09/10/24 [History Confirmed 01/22/25] diltiazem HCl 180 mg capsule,extended release 24 hr 180 mg PO DAILY #30 caps 09/17/24 [Rx Confirmed 01/22/25] duloxetine 30 mg capsule,delayed release 30 mg PO DAILY 30 days #30 caps 12/24/24 [Rx Confirmed 01/22/25] mupirocin 2 % topical ointment 1 applic topical BID 10 days #22 grams 01/13/25 [Rx Confirmed 01/22/25] doxycycline hyclate 100 mg capsule 100 mg PO BID 7 days #14 caps 01/21/25 [Rx Confirmed 01/22/25] Exam Physical Exam Vital Signs: Temp Pulse Resp BP Pulse Ox O2 Del Method O2 Flow Rate 97.7 F 118 H 20 136/72 94 L Nasal Cannula 2 01/22/25 18:17 01/22/25 21:56 01/22/25 21:56 01/22/25 21:56 01/22/25 22:07 01/22/25 22:07 01/22/25 22:07 Narrative: General: Awake alert, no acute distress HEENT: head atraumatic, normocephalic, moist mucous membranes Neck: supple no masses, no lymphadenopathy CVS: regular rate and rhythm, no murmurs or gallops Respiratory: clear to auscultation bilaterally, no wheezing or crackles, symmetric expansion GI: soft, nondistended, nontender, positive bowel sounds with no organomegaly Extremity: moves all extremities, no restrictions of movements, no calf tenderness Neuro: AOx3, CN II-VII intact. Moves all extremities in all planes of motion. Skin: intact no rashes or lesions Results - Hospitalist H&P Lab Results Labs: Laboratory Last Values Corrected WBC 7.8 X10E3/uL (3.8-11.6) 01/22/25 20:54 Uncorrected WBC Count 7.8 x10E3/uL (3.8-11.6) 01/22/25 20:54 RBC 4.31 x10E6/uL (3.60-5.00) 01/22/25 20:54 Hgb 13.3 g/dL (11.8-15.4) 01/22/25 20:54 Hct 38.5 % (34.0-46.4) 01/22/25 20:54 MCV 89.4 fl (80-100) 01/22/25 20:54 MCH 30.9 pg (24.7-34.3) 01/22/25 20:54 MCHC 34.6 g/dL (32.0-35.0) 01/22/25 20:54 RDW 14.4 % (11.9-15.3) 01/22/25 20:54 Plt Count 240 x10E3/uL (150-450) 01/22/25 20:54 MPV 8.6 fl (6.3-10.7) 01/22/25 20:54 Neut % (Auto) 70.7 % (.) 01/22/25 20:54 Lymph % (Auto) 17.7 % (.) 01/22/25 20:54 [place] % (Auto) 7.9 % (.) 01/22/25 20:54 Eos % (Auto) 2.5 % (.) 01/22/25 20:54 Baso % (Auto) 1.2 % (.) 01/22/25 20:54 Nucleat RBC Rel Count 0.2 /100 WBC (0-0.5) 01/22/25 20:54 Neut # (Auto) 5.5 x10E3/uL (1.8-7.7) 01/22/25 20:54 Lymph # (Auto) 1.4 x10E3/uL (1.00-4.8) 01/22/25 20:54 [place] # (Auto) 0.6 x10E3/uL (0.0-0.8) 01/22/25 20:54 Eos # (Auto) 0.2 x10E3/uL (0.0-0.45) 01/22/25 20:54 Baso # (Auto) 0.1 x10E3/uL (0.0-0.2) 01/22/25 20:54 Monocyte Dist Width 20.85 % (0.00-20.00) H 01/22/25 20:54 PT 13.9 Seconds (9.0-12.9) H 01/22/25 20:54 INR 1.2 01/22/25 20:54 APTT 32.2 Seconds (25.1-36.5) 01/22/25 20:54 PHA Creatinine Clear 30.77 01/22/25 20:54 Sodium 139 mmol/L (136-145) 01/22/25 20:54 Potassium 3.9 mmol/L (3.5-5.1) 01/22/25 20:54 Chloride 105 mmol/L (98-107) 01/22/25 20:54 Carbon Dioxide 25.7 mmol/L (21.0-31.0) 01/22/25 20:54 Anion Gap 12.2 mEq/L (6.0-15.0) 01/22/25 20:54 BUN 27 mg/dL (7-25) H 01/22/25 20:54 Creatinine 1.13 mg/dL (0.60-1.20) 01/22/25 20:54 Est GFR (CKD-EPI) 48.575 mL/Min 01/22/25 20:54 Glucose 103 mg/dL (70-100) H 01/22/25 20:54 Calcium 9.2 mg/dL (8.6-10.3) 01/22/25 20:54 Magnesium 2.1 mg/dL (1.9-2.7) 01/22/25 20:54 Total Bilirubin 1.2 mg/dl (0.3-1.0) H 01/22/25 20:54 AST 23 U/L (13-39) 01/22/25 20:54 ALT 19 U/L (7-52) 01/22/25 20:54 Alkaline Phosphatase 87 U/L (34-104) 01/22/25 20:54 Total Creatine Kinase 41 U/L (30-223) 01/22/25 20:54 Troponin I High Sens 15 ng/L (0-15) 01/22/25 20:54 B-Natriuretic Peptide 192.0 pg/mL (5-100) H 01/22/25 20:54 Total Protein 6.9 gm/dL (6.4-8.9) 01/22/25 20:54 Albumin 4.0 gm/dL (3.5-5.7) 01/22/25 20:54 Globulin 2.9 gm/dL 01/22/25 20:54 Albumin/Globulin Ratio 1.4 01/22/25 20:54 Assessment & Plan Assessment/Plan (1) Atrial fibrillation with rapid ventricular response: Plan This is a 84-year-old female with significant past medical history of atrial fibrillation, CKD, coronary artery disease, anxiety, GERD, pulmonary hypertension, STONEY, hyperlipidemia, depression, hypertension, presented to [facility] ED with chief complaints of worsening shortness of breath for few days before presentation with fatigue and generalized weakness. Patient denies any fever or chills or chest pain or palpitation. In the ED she was found to be tachycardic with A-fib and RVR and was started on Cardizem drip. Lab work shows no leukocytosis normal hemoglobin around baseline, normal electrolytes potassium 3.9, normal creatinine, magnesium2.1, normal liver enzymes, BNP 192 and troponin of 15, chest x-ray-small pleuraleffusions EKG shows atrial fibrillation with RVR and left bundle branch block. Patient got Percocet, ropinirole and Lasix in the ED and was started on Cardizemdrip. Plan: - Admit in the regular nursing floor - Continue on Cardizem drip - Continue p.o. meds - . Follow morning labs - Heartedly diet - Follow-up urine tox - Full code IP vs OBS Justification Based on differential dx, clinical care plan, and risk of adverse events, if untreated, in my clinical judgement this patient requires an acute care setting as: INPATIENT because of an expectation of an over 2 midnight stay. Estimated length of stay (# of days): 4 Documented By: Ángel Minaya MD 01/22/258 Signed By: <Electronically signed by Ángel Minaya MD> 01/22/25 [address] [facility] Work Phone: [phone] 167-848906-05-2025 [place] [address] Hospitalist H&P Signed Patient: Austin Golden MR#: [id number] : 1940 Acct:[id number] Age/Sex: 84 / F Adm Date: 5 Loc: ER Room: Type: [facility] ER Attending Dr: Copies to: MD Jazmin Connor DO Thomas D Kramer Jr, MD~ HPI DATE OF EXAMINATION: 01/22/25 CHIEF COMPLAINT: Shortness of breath HISTORY OF PRESENT ILLNESS: This is a 84-year-old female with significant past medical history of atrial fibrillation, CKD, coronary artery disease, anxiety, GERD, pulmonary hypertension, STONEY, hyperlipidemia, depression, hypertension, presented to [facility] ED with chief complaints of worsening shortnes s of breath for few days before presentation with fatigue and generalized weakness. Patient denies any fever or chills or chest pain or palpitation. In the ED she was found to be tachycardic with A-fib and RVR and was started on Cardizem drip. Lab work shows no leukocytosis normal hemoglobin aroundbaseline, normal electrolytes potassium 3.9, normal creatinine, magnesium2.1, normal liver enzymes,BNP 192 and troponin of 15, chest x-ray-small pleuraleffusions EKG shows atrial fibrillation with RVR and left bundle branch block. Review of Systems Review of Systems All other systems reviewed & are negative unless noted below or in HPI REPLACED BY [facility] Medical History (Updated 01/22/25 @ 23:17 by Ángel Minaya MD) Cellulitis of left leg without foot Medicare annual wellness visit, subsequent Chronic kidney disease Atrial fibrillation Echo: LVEF 55%, VALERIE, normal RV size/function, RVSP 01/2024, PFT: FEV1/FVC 71, TLV 93%, DLCO 59% - 09/2024 Atrial fibrillation with rapid ventricular response Acute kidney injury Elevated troponin Atypical chest pain Elevated troponin Esophageal obstruction ASHD (arteriosclerotic heart disease) LHC: LAD 40-50%, diagonal 70%, RCA 40-50% - 03/2024, Echo: LVEF 55%, VALERIE, normal RV size/function, RVSP 21 - 01/2024 Dyspnea on exertion Problem List clean-up per request of Phys. EHR Cmte Anxiety High risk medication use Esophageal dysmotility Chronic venous insufficiency of lower extremity GERD (gastroesophageal reflux disease) Chronic heart failure with preserved ejection fraction (HFpEF) Echo: LVEF 55%, VALERIE, RVSP 21, normal RV size/function - 01/2024 Sick sinus syndrome Pulmonary nodule CT: no nodules detected - 10/2022, Primary hypertension Paroxysmal atrial fibrillation Osteopenia of [...] Phys. EHR Cmte Surgical History History of repair of hiatal hernia (~2014) History of left heart catheterization (~03/2024) LHC: LAD 40-50%, diagonal 70%, RCA 40-50%, normal LVEF - 03/2024 History of cholecystectomy 2022 History of colonoscopy [...] Social History Comments: independent living [facility] Medications and Allergies Allergies No Known Allergies Allergy (Verified 01/22/25 18:15) Home Medications rivaroxaban 15 mg tablet (Xarelto) 15 mg PO HS 12/05/21 [History Confirmed 01/22/25] calcium carbonate (Calcium 600) 600 mg PO DAILY 01/18/24 [History Confirmed 01/22/25] acetaminophen 325 mg capsule 325 mg PO Q6HR PRN fever or pain 04/01/24 [History Confirmed 01/22/25] atorvastatin 40 mg tablet 40 mg PO DAILY #100 tabs 04/01/24 [Rx Confirmed 01/22/25] multivitamin 1 tab PO DAILY 04/01/24 [History Confirmed 01/22/25] magnesium oxide 400 mg PO DAILY 04/08/24 [History Confirmed 01/22/25] furosemide 20 mg tablet 20 mg PO DAILY #30 tabs 05/28/24 [Rx Confirmed 01/22/25] ropinirole 1 mg tablet See Rx Instructions .Route .COMPLEX #90 tabs 06/09/24 [Rx Confirmed 01/22/25] amiodarone 200 mg tablet 200 mg PO DAILY 09/10/24 [History Confirmed 01/22/25] diltiazem HCl 180 mg capsule,extended release 24 hr 180 mg PO DAILY #30 caps 09/17/24 [Rx [id number]/05/25] duloxetine 30 mg capsule,delayed release 30 mg PO DAILY 30 days #30 caps 12/24/24 [Rx Confirmed 01/22/25] mupirocin 2 % topical ointment 1 applic topical BID 10 days #22 grams 01/13/25 [Rx Confirmed 01/22/25] doxycycline hyclate 100 mg capsule 100 mg PO BID 7 days #14 caps 01/21/25 [Rx Confirmed 01/22/25] Exam Physical Exam Vital Signs: Temp Pulse Resp BP Pulse Ox O2 Del Method O2 Flow Rate 97.7 F 118 H 20 136/72 94 L Nasal Cannula 2 01/22/25 18:17 01/22/25 21:56 01/22/25 21:56 01/22/25 21:56 01/22/25 22:07 01/22/25 22:07 01/22/25 22:07 Narrative: General: Awake alert, no acute distress HEENT: head atraumatic, normocephalic, moist mucous membranes Neck: supple no masses, no lymphadenopathy CVS: regular rate and rhythm, no murmurs or gallops Respiratory: clear to auscultation bilaterally, no wheezing or crackles, symmetric expansion GI: soft, nondistended, nontender, positive bowel sounds with no organomegaly Extremity: moves all extremities, no restrictions of movements, no calf tenderness Neuro: AOx3, CN II-VII intact. Moves all extremities in all planes of motion. Skin: intact no rashes or lesions Results - Hospitalist H&P Lab Results Labs: Laboratory Last Values Corrected WBC 7.8 X10E3/uL (3.8-11.6) 01/22/25 20:54 Uncorrected WBC Count 7.8 x10E3/uL (3.8-11.6) 01/22/25 20:54 RBC 4.31 x10E6/uL (3.60-5.00) 01/22/25 20:54 Hgb 13.3 g/dL (11.8-15.4) 01/22/25 20:54 Hct 38.5 % (34.0-46.4) 01/22/25 20:54 MCV 89.4 fl (80-100) 01/22/25 20:54 MCH 30.9 pg (24.7-34.3) 01/22/25 20:54 MCHC 34.6 g/dL (32.0-35.0) 01/22/25 20:54 RDW 14.4 % (11.9-15.3) 01/22/25 20:54 Plt Count 240 x10E3/uL (150-450) 01/22/25 20:54 MPV 8.6 fl (6.3-10.7) 01/22/25 20:54 Neut % (Auto) 70.7 % (.) 01/22/25 20:54 Lymph % (Auto) 17.7 % (.) 01/22/25 20:54 [place] % (Auto) 7.9 % (.) 01/22/25 20: Eos % (Auto) 2.5 % (.) 01/22/25: Baso % (Auto) 1.2 % (.) 01/22/25 20: Nucleat RBC Rel Count 0.2 /100 WBC (0-0.5) 01/22/25 20: Neut # (Auto) 5.5 x10E3/uL (1.8-7.7) 01/22/25 20:54 Lymph # (Auto) 1.4 x10E3/uL (1.00-4.8) 01/22/25 20:54 [place] # (Auto) 0.6 x10E3/uL (0.0-0.8) 01/22/25 20: Eos # (Auto) 0.2 x10E3/uL (0.0-0.45) 01/22/25 20: Baso # (Auto) 0.1 x10E3/uL (0.0-0.2) 01/22/25 20:54 Monocyte Dist Width 20.85 % (0.00-20.00) H 01/22/25 20:54 PT 13.9 Seconds (9.0-12.9) H 01/22/25 20:54 INR 1.2 01/22/25 20:54 APTT 32.2 Seconds (25.1-36.5) 01/22/25 20:54 PHA Creatinine Clear 30.77 01/22/25 20:54 Sodium 139 mmol/L (136-145) 01/22/25 20:54 Potassium 3.9 mmol/L (3.5-5.1) 01/22/25 20:54 Chloride 105 mmol/L (98-107) 01/22/25 20:54 Carbon Dioxide 25.7 mmol/L (21.0-31.0) 01/22/25 20:54 Anion Gap 12.2 mEq/L (6.0-15.0) 01/22/25 20:54 BUN 27 mg/dL (7-25) H 01/22/25 20:54 Creatinine 1.13 mg/dL (0.60-1.20) 01/22/25 20:54 Est GFR (CKD-EPI) 48.575 mL/Min 01/22/25 20:54 Glucose 103 mg/dL (70-100) H 01/22/25 20:54 Calcium 9.2 mg/dL (8.6-10.3) 01/22/25 20:54 Magnesium 2.1 mg/dL (1.9-2.7) 01/22/25 20:54 Total Bilirubin 1.2 mg/dl (0.3-1.0) H 01/22/25 20:54 AST 23 U/L (13-39) 01/22/25 20:54 ALT 19 U/L (7-52) 01/22/25 20:54 Alkaline Phosphatase 87 U/L (34-104) 01/22/25 20:54 Total Creatine Kinase 41 U/L (30-223) 01/22/25 20:54 Troponin I High Sens 15 ng/L (0-15) 01/22/25 20:54 B-Natriuretic Peptide 192.0 pg/mL (5-100) H 01/22/25 20:54 Total Protein 6.9 gm/dL (6.4-8.9) 01/22/25 20:54 Albumin 4.0 gm/dL (3.5-5.7) 01/22/25 20:54 Globulin 2.9 gm/dL 01/22/25 20:54 Albumin/Globulin Ratio 1.4 01/22/25 20:54 Assessment & Plan Assessment/Plan (1) Atrial fibrillation with rapid ventricular response: Plan This is a 84-year-old female with significant past medical history of atrial fibrillation, CKD, coronary artery disease, anxiety, GERD, pulmonary hypertension, STONEY, hyperlipidemia, depression, hypertension, presented to [facility] ED with chief complaints of worsening shortnes s of breath for few days before presentation with fatigue and generalized weakness. Patient denies any fever or chills or chest pain or palpitation. In the ED she was found to be tachycardic with A-fib and RVR and was started on Cardizem drip. Lab work shows no leukocytosis normal hemoglobin aroundbaseline, normal electrolytes potassium 3.9, normal creatinine, magnesium2.1, normal liver enzymes,BNP 192 and troponin of 15, chest x-ray-small pleuraleffusions EKG shows atrial fibrillation with RVR and left bundle branch block. Patient got Percocet, ropinirole and Lasix in the ED and was started on Cardizemdrip. Plan: - Admit in the regular nursing floor - Continue on Cardizem drip - Continue p.o. meds - . Follow morning labs - Heartedly diet - Follow-up urine tox - Full code IP vs OBS Justification Based on differential dx, clinical care plan, and risk of adverse events, if untreated, in my clinical judgement this patient requires an acute care setting as: INPATIENT because of an expectation ofan over 2 midnight stay. Estimated length of stay (# of days): 4 Documented By: Ángel Minaya MD 01/22/256 Signed By: 01/22/25 2313 [facility]05-23-2025 Evaluation note* Diagnosis Onset Date Resolution Status Admit Date ASHD (arteriosclerotic heart disease) acute January 09, 2025 2:26pm Chronic kidney disease acute Ma y 2024 2:26pm GERD (gastroesophageal reflu x disease) acute January 09, 2025 2:26pm Hypercholesterolemia acute January 09, 2025 2:26pm 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 acute January 09 2:26pm Primary hypertension acute January 09, 2025 2:26pm Chronic heart failure with preserved ejection fraction (HFpEF) resolved January 09, 2025 2:26pm Paroxysmal atrial fibrillation resol phil January 09, 2025 2:26pm [facility] Work Phone: 1(852) 880-355505-23-2025 Evaluation note* Diagnosis Onset Date Resolution Status Admit Date ASHD (arteriosclerotic heart disease) acute January 09, 2025 2:26pm Chronic kidney disease acute Ma y 2024 2:26pm GERD (gastroesophageal reflu x disease) acute January 09, 2025 2:26pm Hypercholesterolemia acute January 09, 2025 2:26pm 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 acute January 09 2:26pm Primary hypertension acute January 09, 2025 2:26pm Chronic heart failure with preserved ejection fraction (HFpEF) resolved January 09, 2025 2:26pm Paroxysmal atrial fibrillation resol phil January 09, 2025 2:26pm ASHD (arteriosclerotic heart disease) acute January 21, 2025 1:35pm Cellulitis of left leg without foot acute January 21, 2025 1:35pm Chronic kidney disease acute 2024 1:35pm Primary hypertension acute January 21, 2025 1:35pm Chronic heart failure with preserved ejection fraction (HFpEF) resolved January 21, 2025 1:35pm Paroxysmal atrial fibrillation resol phil January 21, 2025 1:35pm Atrial fibrillation with rap id ventricular response acute January 22, 2 025 10:45pm [facility] Work Phone: 1(475) 765-520905-23-2025 Evaluation note* Diagnosis Onset Date Resolution Status Admit Date ASHD (arteriosclerotic heart disease) acute January 09, 2025 2:26pm Chronic kidney disease acute Ma y 2024 2:26pm GERD (gastroesophageal reflu x disease) acute January 09, 2025 2:26pm Hypercholesterolemia acute January 09, 2025 2:26pm 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 acute January 09 2:26pm Primary hypertension acute January 09, 2025 2:26pm Chronic heart failure with preserved ejection fraction (HFpEF) resolved January 09, 2025 2:26pm Paroxysmal atrial fibrillation resol phil January 09, 2025 2:26pm ASHD (arteriosclerotic heart disease) acute January 21, 2025 1:35pm Cellulitis of left leg without foot acute January 21, 2025 1:35pm Chronic kidney disease acute 2024 1:35pm Primary hypertension acute January 21, 2025 1:35pm Chronic heart failure with preserved ejection fraction (HFpEF) resolved January 21, 2025 1:35pm Paroxysmal atrial fibrillation resol phil January 21, 2025 1:35pm Acute hypoxic respiratory failure [place] January 22, 2025 10:45pm ASHD (arteriosclerotic heart disease) acute January 22, 2025 10:45pm Atrial fibrillation with rap id ventricular response acute January 22, 025 10:45pm CHF exacerbation acute January 10:45pm Chronic kidney disease acute Ju 2024 10:45pm Diastolic heart failure acute J 2024 10:45pm Esophageal dysmotility acute Ju ne 2024 10:45pm Hypercholesterolemia acute January 22, 2025 10:45pm Paroxysmal atrial fibrillati on with rapid ventricular response acute January 22, 2025 10:45pm Persistent atrial fibrillation acute January 22, 2025 10:45pm Sick sinus syndrome acute January 22, 2025 10:45pm [facility] Work Phone: 1(134) 235-102705-20-2025 Evaluation + Plan note* Assessment & Plan Note - Nigel El MD - 01/06/2025 9:26 AM EDTAssociated Problem(s): History of repair of hiatal hernia -discussed risks/benefits of surgery--it is high risk due to her age and revisional nature of it -she will talk to her family and let me know if she'd like to proceed with surgery or just live with it [id number] Miscellaneous Notes* Assessment & Plan Note - Nigel El MD - 01/06/2025 9:26 AM EDTAssociated Problem(s): History of repair of hiatal hernia -discussed risks/benefits of surgery--it is high risk due to her age and revisional nature of it -she will talk to her family and let me know if she'd like to proceed with surgery or just live with it documented in this [id number] History of Present illness Narrative* Nigel El MD - 01/06/2025 9:21 AM EDT Phone numbers Preferred Documentation: Mode: Telephone Patient Patient Work Phone: Patient Cell Preferred phone: [phone] Consent: I confirmed patient understanding of the risks and benefits of telehealth visits and obtained consent to proceed with the telehealth visit. Location of Patient: Home of patient Medical discussion: more than 10 minutes Surgery Follow Up Still having a fair amount of regurgitation to food with weight loss. She is possibly interested insurgery, but unsure given the risks. Narrative & Impression EXAMINATION: FL BARIUM SWALLOW DOUBLE CNTRST 06/26/2024 11:51 AM CLINICAL HISTORY: timed barium esophagram protocol for suspected EGJOO (with tablet too if able) ASSOCIATED DIAGNOSIS: Esophageal dysphagia ORDERING PROVIDER: KATIE YUNG TECHNOLOGISTS NOTE: COMPARISON: None FLUOROSCOPIST: ALEXUS CHILDERS FLUORO TIME: 7.1 Minutes PROCEDURE: Double contrast air and barium examination of the hypopharynx and esophagus in multiple upright positions and double contrast examination of the esophagus in multiple horizontal positions was performed utilizing fluoroscopic and radiographic techniques. INTRA-PROCEDURE MEDS: Barium Sulfate 60 % 200 mL Route: OralBarium Sulfate 98 % suspension 100 mL Route: OralBarium Sulfate 1 Tab Route: Oral FINDINGS: Investment [employer] Associate fluoroscopic spot images of the abdomen: Non-obstructive intestinal gas pattern. No sub-diaphragmatic free air. Dual-lead cardiac device with leads projecting over the right ventricle and rightatrial appendage. Timed: Moderate contrast residual in the distal esophagus on the 0 minute image was cleared by 1 minute. Swallowing: Swallowing mechanism is intact. No laryngeal penetration, tracheal aspiration or nasopharyngeal reflux. Symmetric and normal appearing valleculae and pyriform sinuses. 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 Esophagus: Tortuous distal esophagus with normal caliber. Short segment of narrowing at the proximal stomach, likely due to previous fundoplication wrap. Stricture is not excluded Hiatal hernia: Small sliding (type I) hiatal hernia. 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 Barium Tablet: Impedance to the passage of a 1.3 cm tablet in the small hiatal hernia. IMPRESSION: 1. Small sliding (type I) hiatal hernia which caused impedance to the passage of a 1.3 cm tablet inthe small hiatal hernia. 2. Spontaneous gastroesophageal reflux to the level of the aortic arch. 3. Short segment of narrowing at the proximal stomach, likely due to previous fundoplication wrap. Stricture is not excluded 4. Nonspecific esophageal motility disorder. 5. Cricopharyngeus bar. MACRO: None I personally interpreted the upper GI and agree with a hiatal hernia recurrence Assessment & Plan History of repair of hiatal hernia -discussed risks/benefits of surgery--it is high risk due to her age and revisional nature of it -she will talk to her family and let me know if she'd like to proceed with surgery or just live with it Nigel El MD, FACS documented in this [id number] History of Present illness Narrative* Nigel El MD - 12/31/2024 8:43 AM EDT This encounter was opened in error. Patient was a No-Show. Please disregard. Called twice, left message to reschedule. Nigel El MD documented in this [id number] Evaluation + Plan note* Assessment & Plan Note - Nigel El MD - 12/30/2024 9:17 AM EDT Associated Problem(s): History of repair of hiatal hernia -Evidence of recurrence on imaging/EGD -discussed non-operative vs operative management, patient elects to [id number] Miscellaneous Notes* Assessment & Plan Note - Nigel El MD - 12/30/2024 9:17 AM EDTAssociated Problem(s): History of repair of hiatal hernia -Evidence of recurrence on imaging/EGD -discussed non-operative vs operative management, patient elects to documented in this [id number] History of Present illness Narrative* Nigel El MD - 12/30/2024 9:13 AM EDT This encounter was opened in error. Patient was a No-Show. Please disregard. Called many times, left message to reschedule. Nigel El MD documented in this [id number] Telephone encounter Note* Telephone Encounter - Domenica Gloria - 12/11/2024 9:38 AM EDT LVM 12/11 @ 9:30 cancelling appt. Left my number for r/s- SO [id number] Miscellaneous Notes* Telephone Encounter - Domenica Gloria - 12/11/2024 9:38 AM EDT LVM 12/11 @ 9:30 cancelling appt. Left my number for r/s- SO documented in this [id number] Hospital Discharge instructions* Discharge Instructions* Nigel El MD - 12/08/2024 10:44 AM EDT MPRESSION: 5 cm recurrence of paraesophageal hernia No EndoFLIP evidence of EGJOO RECOMMENDATIONS: Follow up with me as scheduled to discuss next steps (surgery vs. Non-surgical management) Follow up with GI as scheduled. General Post-Procedure Instructions: Your doctor recommends you start the following new medications: N/A If you take a blood-thinner at home, your doctor recommends you start taking it again after waitingthis many hours: 0 hours (Okay to resume taking it immediately) Please avoid using NSAIDs (advil, motrin, ibuprofen, aleve, naproxen, toradol) for at least 48 hours. It is okay to use Tylenol for pain. You may continue/resume taking baby aspirin (81mg) today If you have any of the following symptoms, please contact the endoscopy center Mon-Fri 7:30am-4pm [phone] or after hours general [facility] number [phone] Severe abdominal pain that keeps getting worse Fever or any other signs of infection Nausea or vomiting blood Seeing persistent blood coming out of your rectum, with or without stool (some streaks or drops of blood may be expected) For any additional questions, please call the endoscopy center at [phone] Follow-up with your Primary Care Provider CC: Primary Care Provider: No primary care provider on file. * Attachments The following attachments cannot be sent through Care Everywhere. * Upper GI Endoscopy Discharge Instructions ([place]) * Moderate Sedation in Adults Discharge Instructions ([place]) * FALLSPREVENTION documented in this [id number] Miscellaneous Notes* OP Note - Nigel El MD - 12/08/2024 10:29 AM EDT Images from the original note were not included. Austin Golden 84 year old Surgical Contact Serial Number: [id number] Location: ENDO 04 Date: 12/08/2024 WHEELMAN: Nigel El MD ATTENDING:Nigel El MD Procedure(s): ESOPHAGOGASTRODUODENOSCOPY WITH ENDOFLIP INSTRUMENT: Scope #[id number] SEDATION: Anesthesia Assisted Pre-Op Diagnosis Codes: * Hiatal hernia [K44.9] INDICATIONS: This is a 84 year old female with: recurrent paraesophageal hernia and dysphagia While monitoring the patient with EKG, pulse oximetry and BP, endoscope passed to second portion ofduodenum by direct visualization. FINDINGS: DUODENUM: bulb and descending portion appeared normal. STOMACH: pyloric channel, antrum, body, fundus and cardia, including retroflexed views appear normal. 5 cm hiatal hernia with transdiaphragmatic migration of intact fundoplication. ESOPHAGUS: diaphragmatic hiatus was 40 cm from incisors and GE junction (upper margin of gastric folds) was at 35 cm from incisors. Squamocolumnar junction was at 35 cm from incisors. Mucosa appearednormal. 5 cm hiatal hernia. EndoFlip Evaluation Endoscopy Suite Balloon size (cc) Diameter (mm) Distensibility Index 40 N/A N/A 50 14 11 60 15 8 Repetitive Antegrade Contractions: Yes Balloon pressure > 15: Above 50 cc Diaphragmatic hernia without obstruction or gangrene (Primary Diagnosis) [906026] Hiatal hernia [377859] Gastroesophageal reflux disease without esophagitis [355043] TEE PATH SPECIMEN SENT: no SPECIMEN: None PHOTOGRAPH TAKEN:yes COMPLICATIONS DURING PROCEDURE: None EBL (estimated blood loss): none IMPRESSION: 5 cm recurrence of paraesophageal hernia No EndoFLIP evidence of EGJOO RECOMMENDATIONS: Follow up with me as scheduled to discuss next steps (surgery vs. Non-surgical management) Follow up with GI as scheduled. General Post-Procedure Instructions: Your doctor recommends you start the following new medications: N/A If you take a blood-thinner at home, your doctor recommends you start taking it again after waitingthis many hours: 0 hours (Okay to resume taking it immediately) Please avoid using NSAIDs (advil, motrin, ibuprofen, aleve, naproxen, toradol) for at least 48 hours. It is okay to use Tylenol for pain. You may continue/resume taking baby aspirin (81mg) today If you have any of the following symptoms, please contact the endoscopy center Mon-Fri 7:30am-4pm [phone] or after hours general [facility] number [phone] Severe abdominal pain that keeps getting worse Fever or any other signs of infection Nausea or vomiting blood Seeing persistent blood coming out of your rectum, with or without stool (some streaks or drops of blood may be expected) For any additional questions, please call the endoscopy center at [phone] Follow-up with your Primary Care Provider CC: Primary Care Provider: No primary care provider on file. PERSON COMPLETING NOTE: Nigel El MD 12/08/2024 at 10:41 AM Patient meets criteria for discharge/transfer: Nigel El MD * Blood Attestation - Ernesto Parker MD - 12/08/2024 9:57 AM EDT Blood Attestation: ATTESTATION OF INFORMED CONSENT FOR BLOOD: The transfusion of blood and/or blood components were discussed with the patient and/or legal teleservices representative. The risks, benefits and alternatives were reviewed. Questions regarding blood transfusions were answered. The patient /or the patient s legal teleservices representative agree with the plan for transfusion of blood and/or blood components. documented in this [id number] Surgery Surgical operation note* OP Note - Nigel El MD - 12/08/2024 10:29 AM EDT Images from the original note were not included. Austin Golden 84 year old Surgical Contact Serial Number: [id number] Location: ENDO 04 Date: 12/08/2024 WHEELMAN: Nigel El MD ATTENDING:Nigel El MD Procedure(s): ESOPHAGOGASTRODUODENOSCOPY WITH ENDOFLIP INSTRUMENT: Scope #[id number] SEDATION: Anesthesia Assisted Pre-Op Diagnosis Codes: * Hiatal hernia [K44.9] INDICATIONS: This is a 84 year old female with: recurrent paraesophageal hernia and dysphagia While monitoring the patient with EKG, pulse oximetry and BP, endoscope passed to second portion ofduodenum by direct visualization. FINDINGS: DUODENUM: bulb and descending portion appeared normal. STOMACH: pyloric channel, antrum, body, fundus and cardia, including retroflexed views appear normal. 5 cm hiatal hernia with transdiaphragmatic migration of intact fundoplication. ESOPHAGUS: diaphragmatic hiatus was 40 cm from incisors and GE junction (upper margin of gastric folds) was at 35 cm from incisors. Squamocolumnar junction was at 35 cm from incisors. Mucosa appearednormal. 5 cm hiatal hernia. EndoFlip Evaluation Endoscopy Suite Balloon size (cc) Diameter (mm) Distensibility Index 40 N/A N/A 50 14 11 60 15 8 Repetitive Antegrade Contractions: Yes Balloon pressure > 15: Above 50 cc Diaphragmatic hernia without obstruction or gangrene (Primary Diagnosis) [001291] Hiatal hernia [479125] Gastroesophageal reflux disease without esophagitis [563822] TEE PATH SPECIMEN SENT: no SPECIMEN: None PHOTOGRAPH TAKEN:yes COMPLICATIONS DURING PROCEDURE: None EBL (estimated blood loss): none IMPRESSION: 5 cm recurrence of paraesophageal hernia No EndoFLIP evidence of EGJOO RECOMMENDATIONS: Follow up with me as scheduled to discuss next steps (surgery vs. Non-surgical management) Follow up with GI as scheduled. General Post-Procedure Instructions: Your doctor recommends you start the following new medications: N/A If you take a blood-thinner at home, your doctor recommends you start taking it again after waitingthis many hours: 0 hours (Okay to resume taking it immediately) Please avoid using NSAIDs (advil, motrin, ibuprofen, aleve, naproxen, toradol) for at least 48 hours. It is okay to use Tylenol for pain. You may continue/resume taking baby aspirin (81mg) today If you have any of the following symptoms, please contact the endoscopy center Mon-Fri 7:30am-4pm [phone] or after hours general [facility] number [phone] Severe abdominal pain that keeps getting worse Fever or any other signs of infection Nausea or vomiting blood Seeing persistent blood coming out of your rectum, with or without stool (some streaks or drops of blood may be expected) For any additional questions, please call the endoscopy center at [phone] Follow-up with your Primary Care Provider CC: Primary Care Provider: No primary care provider on file. PERSON COMPLETING NOTE: Nigel El MD 12/08/2024 at 10:41 AM Patient meets criteria for discharge/transfer: Nigel El MD [id number] History and physical note* Checo Sotomayor MD - 12/08/2024 10:08 AM EDT Images from the original note were not included. [facility] H&P Austin Golden [id number] History (HPI) Austin Golden is a 84 year old female with PMH of afib on xarelto and 08/17/2015 open reduction of hiatal hernia with Lobo gastroplasty and Raul fundoplication. No past medical history on file. Past Surgical History: Procedure Laterality Date ESOPHAGOGASTRODUODENOSCOPY N/A 05/29/2024 Procedure: ESOPHAGOGASTRODUODENOSCOPY with HREM catheter placement; Surgeon: Katie Yung MD; Location: [facility]; Service: Gastroenterology Medications: Current Outpatient Medications Medication Instructions amiodarone (CORDARONE) 200 mg, DAILY atorvastatin (LIPITOR) 40 mg, DAILY buPROPion ER (WELLBUTRIN XL) 150 mg, DAILY calcium carbonate 600 mg, DAILY digoxin (LANOXIN) 0.125 mg, DAILY dilTIAZem (CARDIZEM CD) 180 mg, DAILY furosemide (LASIX) 20 mg, DAILY Multiple Vitamin (Multi Vitamin Daily) TABS 1 Tablet, DAILY pantoprazole (PROTONIX) 40 mg, 2 TIMES DAILY rOPINIRole (REQUIP) 1 mg, AT BEDTIME vitamin D3 50 mcg, DAILY Xarelto 15 mg, AT BEDTIME Allergies: Fentanyl Family History: family history is not on file. Social History: Smoking (-), EtOH (-), Drug Use (-) Review of Systems (Bold is Positive + ) Const: Fevers - Chills - WeightLoss - Sweating - Fatigue - MedChanges HEENT: Headaches - VisionChanges Cardiac: ChestPain - Palpitations Pulm: SOB - Cough (Productive) - Orthopnea - PND GI: Nausea - Vomiting - AbdPain - Diarrhea - Constipation - StoolChanges : Dysuria - Frequency - ColorChanges MSK: Pain - Swelling - Weakness Skin: Rash - Itching - Lumps/Bumps - Wounds Neuro: Numbness - Tingling - Dizziness - Falls Heme: Bleeding Physical Exam BP 166/71 Pulse 71 Temp 97.3 F (36.3 C) Resp 18 SpO2 94% General: No acute distress, awake Cardiac: Non-tachycardic Pulmonary: Non-labored breathing. Symmetric chest rise. Abdomen: Soft, non-tender, non-distended. No peritonitis Extremities: Moving all extremities spontaneously Skin: Warm, moist Neuro: AOx3 Labs: N/A \ N/A / N/A / N/A \ CBC: No results found for requested labs within last 120 days. N/A N/A N/A / \ N/A N/A N/A N/A BMP: No results found for requested labs within last 120 days. Studies: UGI IMPRESSION: 1. Small sliding (type I) hiatal hernia which caused impedance to the passage of a 1.3 cm tablet inthe small hiatal hernia. 2. Spontaneous gastroesophageal reflux to the level of the aortic arch. 3. Short segment of narrowing at the proximal stomach, likely due to previous fundoplication wrap. Stricture is not excluded 4. Nonspecific esophageal motility disorder. 5. Cricopharyngeus bar. Assessment/Recommendations Austin Golden is a 84 year old female with PMH as noted above who presents for EGD with Endoflip PLAN: Patient consented for and okay continuing with EGD with endoflip Patient discussed with attending surgeon, Dr. Garima Sotomayor MD General Surgery Cosigned by Nigel El MD at 12/08/2024 10:16 AM EDT [facility] Work Phone: 1(868) 310-169804-21-2025 History and physical note* Checo Sotomayor MD - 12/08/2024 10:08 AM EDT Images from the original note were not included. [facility] H&P Austin Golden [id number] History (HPI) Austin Golden is a 84 year old female with PMH of afib on xarelto and 08/17/2015 open reduction of hiatal hernia with Lobo gastroplasty and Raul fundoplication. No past medical history on file. Past Surgical History: Procedure Laterality Date ESOPHAGOGASTRODUODENOSCOPY N/A 05/29/2024 Procedure: ESOPHAGOGASTRODUODENOSCOPY with HREM catheter placement; Surgeon: Katie Yung MD; Location: [facility]; Service: Gastroenterology Medications: Current Outpatient Medications Medication Instructions amiodarone (CORDARONE) 200 mg, DAILY atorvastatin (LIPITOR) 40 mg, DAILY buPROPion ER (WELLBUTRIN XL) 150 mg, DAILY calcium carbonate 600 mg, DAILY digoxin (LANOXIN) 0.125 mg, DAILY dilTIAZem (CARDIZEM CD) 180 mg, DAILY furosemide (LASIX) 20 mg, DAILY Multiple Vitamin (Multi Vitamin Daily) TABS 1 Tablet, DAILY pantoprazole (PROTONIX) 40 mg, 2 TIMES DAILY rOPINIRole (REQUIP) 1 mg, AT BEDTIME vitamin D3 50 mcg, DAILY Xarelto 15 mg, AT BEDTIME Allergies: Fentanyl Family History: family history is not on file. Social History: Smoking (-), EtOH (-), Drug Use (-) Review of Systems (Bold is Positive + ) Const: Fevers - Chills - WeightLoss - Sweating - Fatigue - MedChanges HEENT: Headaches - VisionChanges Cardiac: ChestPain - Palpitations Pulm: SOB - Cough (Productive) - Orthopnea - PND GI: Nausea - Vomiting - AbdPain - Diarrhea - Constipation - StoolChanges : Dysuria - Frequency - ColorChanges MSK: Pain - Swelling - Weakness Skin: Rash - Itching - Lumps/Bumps - Wounds Neuro: Numbness - Tingling - Dizziness - Falls Heme: Bleeding Physical Exam BP 166/71 Pulse 71 Temp 97.3 F (36.3 C) Resp 18 SpO2 94% General: No acute distress, awake Cardiac: Non-tachycardic Pulmonary: Non-labored breathing. Symmetric chest rise. Abdomen: Soft, non-tender, non-distended. No peritonitis Extremities: Moving all extremities spontaneously Skin: Warm, moist Neuro: AOx3 Labs: N/A \ N/A / N/A / N/A \ CBC: No results found for requested labs within last 120 days. N/A N/A N/A / \ N/A N/A N/A N/A BMP: No results found for requested labs within last 120 days. Studies: UGI IMPRESSION: 1. Small sliding (type I) hiatal hernia which caused impedance to the passage of a 1.3 cm tablet inthe small hiatal hernia. 2. Spontaneous gastroesophageal reflux to the level of the aortic arch. 3. Short segment of narrowing at the proximal stomach, likely due to previous fundoplication wrap. Stricture is not excluded 4. Nonspecific esophageal motility disorder. 5. Cricopharyngeus bar. Assessment/Recommendations Austin Golden is a 84 year old female with PMH as noted above who presents for EGD with Endoflip PLAN: Patient consented for and okay continuing with EGD with endoflip Patient discussed with attending surgeon, Dr. Garima Sotomayor MD General Surgery Cosigned by Nigel El MD at 12/08/2024 10:16 AM EDT documented in this [id number] Progress note* Blood Attestation - Ernesto Parker MD - 12/08/2024 9:57 AM EDT Blood Attestation: ATTESTATION OF INFORMED CONSENT FOR BLOOD: The transfusion of blood and/or blood components were discussed with the patient and/or legal teleservices representative. The risks, benefits and alternatives were reviewed. Questions regarding blood transfusions were answered. The patient /or the patient s legal teleservices representative agree with the plan for transfusion of blood and/or blood components. [facility] Work Phone: [phone] 473-498204-08-2025 Telephone encounter Note* Telephone Encounter - Aidee Pyle RN - 11/25/2024 5:56 PM EDT What is the need: Situation: Pt states indigestion/vomiting this week this has been happening every night Background: Most recent visit in Gastroenterology was on 11/13/2024 with Katie Yung MD Assessment: see below Recommendation: Advised I would reach out to Dr. Yung/gi to see if pt needs a follow up appt Adiee Pyle RN Reason for Disposition Vomiting is a chronic symptom (recurrent or ongoing AND present > 4 weeks) Answer Assessment - Initial Assessment Questions 1. VOMITING SEVERITY: How many times have you vomited in the past 24 hours? - MILD: 1 - 2 times/day - MODERATE: 3 - 5 times/day, decreased oral intake without significant weight loss or symptoms of dehydration - SEVERE: 6 or more times/day, vomits everything or nearly everything, with significant weight loss, symptoms of dehydration once 2. ONSET: When did the vomiting begin? 4 years 3. FLUIDS: What fluids or food have you vomited up today? Have you been able to keep any fluids down? I'm trying to drink some water, did not keep the boost down 4. ABDOMEN PAIN: Are your having any abdomen pain? If Yes : How bad is it and what does it feel like? (e.g., crampy, dull, intermittent, constant) Pain on right side of stomach worse during emesis 5. DIARRHEA: Is there any diarrhea? If Yes, ask: How many times today? today 6. CONTACTS: Is there anyone else in the family with the same symptoms? N/a 7. CAUSE: What do you think is causing your vomiting? indigestion 8. HYDRATION STATUS: Any signs of dehydration? (e.g., dry mouth [not only dry lips], too weak to stand) When did you last urinate? Feels hydrated 9. OTHER SYMPTOMS: Do you have any other symptoms? (e.g., fever, headache, vertigo, vomiting blood or coffee grounds, recent head injury) denies 10. : Is there any chance you are ? When was your last menstrual period? N/a Protocols used: [id number] Miscellaneous Notes* Telephone Encounter - Aidee Pyle RN - 11/25/2024 5:56 PM EDT What is the need: Situation: Pt states indigestion/vomiting this week this has been happening every night Background: Most recent visit in Gastroenterology was on 11/13/2024 with Katie Yung MD Assessment: see below Recommendation: Advised I would reach out to Dr. Yung/gi to see if pt needs a follow up appt Aidee Pyle RN Reason for Disposition Vomiting is a chronic symptom (recurrent or ongoing AND present > 4 weeks) Answer Assessment - Initial Assessment Questions 1. VOMITING SEVERITY: How many times have you vomited in the past 24 hours? - MILD: 1 - 2 times/day - MODERATE: 3 - 5 times/day, decreased oral intake without significant weight loss or symptoms of dehydration - SEVERE: 6 or more times/day, vomits everything or nearly everything, with significant weight loss, symptoms of dehydration once 2. ONSET: When did the vomiting begin? 4 years 3. FLUIDS: What fluids or food have you vomited up today? Have you been able to keep any fluids down? I'm trying to drink some water, did not keep the boost down 4. ABDOMEN PAIN: Are your having any abdomen pain? If Yes : How bad is it and what does it feel like? (e.g., crampy, dull, intermittent, constant) Pain on right side of stomach worse during emesis 5. DIARRHEA: Is there any diarrhea? If Yes, ask: How many times today? today 6. CONTACTS: Is there anyone else in the family with the same symptoms? N/a 7. CAUSE: What do you think is causing your vomiting? indigestion 8. HYDRATION STATUS: Any signs of dehydration? (e.g., dry mouth [not only dry lips], too weak to stand) When did you last urinate? Feels hydrated 9. OTHER SYMPTOMS: Do you have any other symptoms? (e.g., fever, headache, vertigo, vomiting blood or coffee grounds, recent head injury) denies 10. : Is there any chance you are ? When was your last menstrual period? N/a Protocols used: [id number] * Telephone Encounter - Bonnie Clarke RN - 11/25/2024 4:44 PM EDT What is the need: Situation: returning patients call Background: n/a Assessment: pt unable to provide three identifiers, states she is sick and to call back later. Recommendation: no advise given, RN offered to call 911 for patient, pt declined. Bonnie Clarke RN * Telephone Encounter - Maria Eugenia Quach - 11/25/2024 4:31 PM EDT Caller: The Pt Symptoms: Pt states that she is not able to keep food down. Patient is requesting a call back from the Triage Nurse. Thank you! documented in this [id number] Telephone encounter Note* Telephone Encounter - Bonnie Clarke RN - 11/25/2024 4:44 PM EDT What is the need: Situation: returning patients call Background: n/a Assessment: pt unable to provide three identifiers, states she is sick and to call back later. Recommendation: no advise given, RN offered to call 911 for patient, pt declined. Bonnie Clarke RN [id number] Telephone encounter Note* Telephone Encounter - Maria Eugenia Quach - 11/25/2024 4:31 PM EDT Caller: The Pt Symptoms: Pt states that she is not able to keep food down. Patient is requesting a call back from the Triage Nurse. Thank you! [id number] Telephone encounter Note* Telephone Encounter - Bonnie Clarke, RN - 11/11/2024 4:14 PM EDT Situation: swallowing difficulties Background: See nurse triage Assessment: See nurse triage Recommendation: pt advised to be seen within two weeks. pt verbalized understanding and agreed to plan of care. No appts available within this time frame for the patient. Please call pt with further instructions. Reason for Disposition Swallowing difficulty is a chronic symptom (recurrent or ongoing AND present > 4 weeks) Answer Assessment - Initial Assessment Questions 1. DESCRIPTION: Tell me more about this problem. Are you having trouble swallowing liquids, solids, or both? Any trouble with swallowing saliva (spit)? Trouble with solids, pt states she is vomiting occasionally and bringing up white saliva 2. SEVERITY: How bad is the swallowing difficulty? (Scale 1-10; or mild, moderate, severe) - MILD (0-3): Occasional swallowing difficulty; has trouble swallowing certain types of foods or liquids. - MODERATE (4-7): Frequent swallowing difficulty; only able to swallow small amounts of foods and fluids. - SEVERE (8-10): Unable to swallow any foods, fluids, or saliva; sensation of lump in throat or something stuck in throat , and frequent drooling or spitting may be present. severe 3. ONSET: When did the swallowing problems begin? Over the last month thses issues have gotten worse 4. CAUSE: What do you think is causing the problem? (e.g., dry mouth, food or pill stuck in throat, mouth pain, sore throat, progression of disease process such as dementia or Parkinson's disease). Pt states she saw GI and has an esophagus issue 5. CHRONIC or RECURRENT: Is this a new problem for you? If No, ask: How long have you had this problem? (e.g., days, weeks, months) chrinic 6. OTHER SYMPTOMS: Do you have any other symptoms? (e.g., chest pain, difficulty breathing, mouthsores, sore throat, swollen tongue, chest pain) Loss of appetite, vomiting, weight loss, back pain 7. : Is there any chance you are ? When was your last menstrual period? N/a Protocols used: Swallowing [id number] Miscellaneous Notes* Telephone Encounter - Bonnie Clarke RN - 11/11/2024 4:14 PM EDT Situation: swallowing difficulties Background: See nurse triage Assessment: See nurse triage Recommendation: pt advised to be seen within two weeks. pt verbalized understanding and agreed to plan of care. No appts available within this time frame for the patient. Please call pt with further instructions. Reason for Disposition Swallowing difficulty is a chronic symptom (recurrent or ongoing AND present > 4 weeks) Answer Assessment - Initial Assessment Questions 1. DESCRIPTION: Tell me more about this problem. Are you having trouble swallowing liquids, solids, or both? Any trouble with swallowing saliva (spit)? Trouble with solids, pt states she is vomiting occasionally and bringing up white saliva 2. SEVERITY: How bad is the swallowing difficulty? (Scale 1-10; or mild, moderate, severe) - MILD (0-3): Occasional swallowing difficulty; has trouble swallowing certain types of foods or liquids. - MODERATE (4-7): Frequent swallowing difficulty; only able to swallow small amounts of foods and fluids. - SEVERE (8-10): Unable to swallow any foods, fluids, or saliva; sensation of lump in throat or something stuck in throat , and frequent drooling or spitting may be present. severe 3. ONSET: When did the swallowing problems begin? Over the last month thses issues have gotten worse 4. CAUSE: What do you think is causing the problem? (e.g., dry mouth, food or pill stuck in throat, mouth pain, sore throat, progression of disease process such as dementia or Parkinson's disease). Pt states she saw GI and has an esophagus issue 5. CHRONIC or RECURRENT: Is this a new problem for you? If No, ask: How long have you had this problem? (e.g., days, weeks, months) chrinic 6. OTHER SYMPTOMS: Do you have any other symptoms? (e.g., chest pain, difficulty breathing, mouthsores, sore throat, swollen tongue, chest pain) Loss of appetite, vomiting, weight loss, back pain 7. : Is there any chance you are ? When was your last menstrual period? N/a Protocols used: Swallowing [id number] * Telephone Encounter - Cristiana Vieira - 11/11/2024 4:10 PM EDT Caller warm-transferred to [facility] Nurse for Sx/Buzzword situation of: Food getting stuck in throat Pt states white fluid comes out of patients mouth and nose runs 3-4 hours. Cannot eat anything solid. Cannot hold down the Boost drink. Pt states lost weight couple lbs a week Pt did states had a manometry test 05/29/2024 there was a block age Symptoms are coming back Caller's Telephone Number: Telephone Information: documented in this [id number] Telephone encounter Note* Telephone Encounter - Cristiana Vieira - 11/11/2024 4:10 PM EDT Caller warm-transferred to [facility] Nurse for Sx/Buzzword situation of: Food getting stuck in throat Pt states white fluid comes out of patients mouth and nose runs 3-4 hours. Cannot eat anything solid. Cannot hold down the Boost drink. Pt states lost weight couple lbs a week Pt did states had a manometry test 05/29/2024 there was a block age Symptoms are coming back Caller's Telephone Number: Telephone Information: [id number] History of Present illness Narrative* Maxwell Medrano MD - 10/23/2024 11:00 AM EST CARDIOLOGY OFFICE VISIT CHIEF COMPLAINT Chief Complaint Patient presents with Follow-up HISTORY OF PRESENT ILLNESS HPI 84-year-old female with a past medical history of hypertension, hyperlipidemia. Patient had a long history of atrial fibrillation for which she started seeing [facility] since 2020 aftershe was hospitalized in [facility] for bradycardia. Adjustment of her medical therapy was performed with amiodarone at that time. 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 She was continue on amiodarone. This medication was discontinued at some point the beginning of 2022 due to long-termside effects. Initially she was placed on Tikosyn but Tikosyn produced QT prolongation and she was placed on sotalol therapy. Patient is being evaluated recently at [facility] for ablation therapy for atrial fibrillation. She also has a long history of shortness of breath but for the last 2 to 3 monthsshe has been having worsening episodes at a [...] and Xarelto therapy 50 mg 1 tablet daily.Patient had a dual-chamber pacemaker [employer] MRI implanted in June 29, 2021. Patient had a cardiac catheterization in 2022 that shows mild coronary artery disease. Medical therapy was recommended. in February 28, 2024, patient was in atrial flutter. ATP was delivered with unsuccessful termination ofthis arrhythmia. Patient was kept on sotalol 120 mg 1 tablet twice a day. Cardiac catheterization March 2024 CONCLUSIONS: 1. The 1st diagonal branch showed atherosclerotic disease and calcification. 2. Co-dominant right (RCA) and left (LCx) coronary artery system. 3. Double vessel coronary artery disease. 4. Prox LAD 40-50% calcified lesion; 1st Dg 70% diffuse lesion (small vessel). 5. Mid RCA 40-50% calcified lesion. 6. Large LCx with irregularities. 7. Preserved LV systolic function. Patient was seen in my office in March 17, 2024. The time we discussed the option of adjusting of antiarrhythmic therapy and perform a cardioversion. The day of the cardioversion, patient started noticing worsening chest discomfort and shortness of breath. She ended in the hospital at [facility]. During this admission she was in atrial flutter. Rates were controlled between 60 to 90 bpm. She underwent cardioversion with successful sikh to sinus rhythm for at least a day and a half but patient did not feel well during this time. She was continue complaining of abdominal pain in the epigastric area. A cardiac catheterization was performed as described above that showed moderate coronary artery disease but no intervention was performed medical therapy was recommended. Patient was seen my office in April 17, 2024. She was complaining again of shortness of breath andpalpitations and weakness. Sotalol was discontinued and she was placed on amiodarone therapy. Patient also was seen recently by GI service. She has been treated for esophagitis increasing the dose ofPPIs twice a day. Patient was seen my office in June 05. She was still complaining of shortness of breath. Patient had a pending GI evaluation. She in the mid admitted to [facility] in June 23, 2024 for shortness of breath. She underwent cardioversion July 02 with successful sikh of sinus rhythm. Patient states that after cardioversion she did not notice any difference in her shortness of breath. She went home and then her symptoms got exacerbated and she ended up back at [facility] the beginning of July 2024 with shortness of breath. No other cardiac workup or cardioversions were performed. Apparently she was placed on nitrates and also the dose of beta-blockerwere increased. Modified barium study June 2024 IMPRESSION: 1. Small sliding (type I) hiatal hernia which caused impedance to the passage of a 1.3 cm tablet inthe small hiatal hernia. 2. Spontaneous gastroesophageal reflux to the level of the aortic arch. 3. Short segment of narrowing at the proximal stomach, likely due to previous fundoplication wrap. Stricture is not excluded 4. Nonspecific esophageal motility disorder. 5. Cricopharyngeus bar. Since the last visit she feels much better. She can do all her activities with no problems. She is not short of breath. She apparently saw a GI service from [facility]. They were planning to do a procedure but because of her symptoms improved she put her procedure on hold. For the last few days she started noticing again problems swallowing. Patient had a device interrogation today. She does have a [employer] dual-chamber pacemakerMedtronic with battery longevity 6 years 6 months. [place] of atrial fibrillation 44% of the time. No high ventricular events noted. Past Medical History Past Medical History: Diagnosis Date Arrhythmia Heart failure Hyperlipidemia Hypertension Social History Social History Tobacco Use Smoking status: Never Smokeless tobacco: Never Substance Use Topics Alcohol use: Never Drug use: Never Family History Family History Problem Relation Name Age of Onset Brain cancer Mother Other (arteriosclerotic cardiovascular disease) Father Allergies: No Known Allergies Outpatient Medications: Current Outpatient Medications Medication Instructions acetaminophen (TYLENOL) 325 mg amiodarone (PACERONE) 200 mg, Daily atorvastatin (Lipitor) 40 mg tablet 1 tablet, Daily calcium carbonate/vitamin D3 (CALCIUM 600 + D,3, ORAL) 600 mg cholecalciferol (VITAMIN D-3) 2,000 Units, Daily dilTIAZem CD (CARDIZEM CD) 180 mg, oral, Daily DULoxetine (CYMBALTA) 30 mg, Daily furosemide (LASIX) 20 mg, Daily multivitamin (Daily Multi-Vitamin) tablet 1 tablet, Daily pantoprazole (PROTONIX) 40 mg, Daily before breakfast rOPINIRole (REQUIP) 1 mg, Nightly Xarelto 15 mg tablet TAKE 1 TABLET (15 MG) BY MOUTH ONCE DAILY IN THE EVENING. TAKE WITH MEALS. REVIEW OF SYSTEMS Review of Systems All other systems reviewed and are negative. VITALS Vitals: 10/23/24 1128 BP: 120/60 Pulse: 71 PHYSICAL EXAM Constitutional: Appearance: Healthy appearance. Not in distress. Neck: Vascular: No JVR. JVD normal. Pulmonary: Effort: Pulmonary effort is normal. Breath sounds: Normal breath sounds. No wheezing. No rhonchi. No rales. Chest: Chest wall: Not tender to palpatation. Cardiovascular: PMI at left midclavicular line. Normal rate. Regular rhythm. Normal S1. Normal S2. Murmurs: There is no murmur. No gallop. No click. No rub. Comments: Device left pectoral area. No hematoma or infection noted. Pulses: Intact distal pulses. Edema: Peripheral edema absent. Abdominal: General: Bowel sounds are normal. Palpations: Abdomen is soft. Tenderness: There is no abdominal tenderness. Musculoskeletal: Normal range of motion. General: No tenderness. Skin: General: Skin is warm and dry. Neurological: General: No focal deficit present. Mental Status: Alert and oriented to person, place and time. ASSESSMENT AND PLAN Clinical impression 1. Shortness of breath, persistent 2. Paroxysmal persistent atrial fibrillation on high risk medication (sotalol). Sotalol was discontinued in March 2024. Currently she is on amiodarone 200 mg daily 3. Long-term anticoagulant therapy with Xarelto 4. Hypertension 5. Hyperlipidemia 6. Cardiomyopathy with a left ventricular ejection fraction 40% per echocardiogram August 2022 7. No evidence of ischemia per stress test in 2019 8. Tachybradycardia syndrome status post dual-chamber pacemaker implanted in 2020 Plan-recommendations Symptoms [place] she is doing much better. She still in atrial fibrillation almost 50% of the time andher symptoms have improved. Again most of the symptoms are related with GI issues. Patient is to have of close follow-up with GI service. From our side, we will continue with PVI scheduled. Patient states that she is feeling much better from the home appliances mechanic on [place]. She does not recall having palpitations. She may put PVI procedure on hold. Continue with current medical therapy. In case PVI needs to be done, she needs to continue on Xarelto. Continue with Pacerone. Get PFTs annually for high risk medication. Get CMP and TSH every 6 months for high risk medication. Follow my office in 6 months or sooner needed. Follow device clinic as scheduled. Risk factor modification and lifestyle modification discussed with patient. Diet , exercise and hydration discussed with patient. I have personally review with patient during this office visit, laboratory data, echocardiogram results, stress test results, Holter-event monitor results prior and after the last electrophysiology visit. All questions has been answered. Please excuse any errors in grammar or translation related to this dictation. Voice recognition software was utilized to prepare this document. Scribe Attestation By signing my name below, I, Jenna Cheng MA, Scribe attest that this documentation has been prepared under the direction and in the presence of Martín Medrano MD. documented in this encounterUniversity Hospitals of Rodriguez Work Phone: [phone]) 517-974003-06-2025 Instructions* Patient Instructions* Jenna Cheng MA - 10/23/2024 11:00 AM EST PVI ABLATION TO BE DONE BY DR. MEDRANO. PATIENT TO HAVE A CT ANGIO ANYTIME PRIOR TO PROCEDURE. VIRA TO BE DONE THE DAY BEFORE. TAKE ALL MEDICATIONS as USUAL. LABS TO BE DONE 1 WEEK PRIOR. documented in this encounterUnParkview [facility] Work Phone: [phone]) 371-511401-24-2025 Radiology Diagnostic study [facility] [place] [address] [place] [address] CT Scan Report Signed Patient: Austin Golden MR#: [id number] : 1940 Acct:[id number] Age/Sex: 83 / F ADM Date: 5 Loc: ER Room: Type: [facility] ER Attending Dr: Copies to: Gracia Craig Do~ Ordering Provider: Gracia Craig Do Date of Service: 09/12/24 CT/CT chest wo con: sob R lung pain CT chest wo con 09/12/2024 12:03 PM SIGN AND SYMPTOMS: Shortness breath, right-sided chest pain TECHNIQUE: Multidetector CT axial slices of the chest were obtained without IV contrast. Multiplanar reformats were performed and viewed on a separate workstation and reviewed to further define anatomy and possible pathology. CT was performed with one or more of the following dose reduction techniques: Automated exposure control, adjustment of the mA and/or kV according to patient size, or use ofiterative reconstruction technique. COMPARISON: 10/30/2022. FINDINGS: Lower neck: Thyroid gland within normal limits, no supraclavicle adenopathy. Vessels: Atherosclerotic changes are noted in the thoracic aorta, origins of thegreat vessels, and within the coronary arteries. Mediastinum and Jannie: Within normal limits. Heart: There is mild cardiomegaly. No pericardial effusion. Airways: Within normal limits Lungs: Mild dependent airspace opacity is noted in the lung bases. Pleura: Small to moderate bilateral pleural effusions are present, left greater than right. Chest Wall: There is a pacer generator along the left anterior chest wall. Upper Abdomen: Within normal limits. Bones: Degenerative changes are noted in the thoracic spine and shoulders. CT/CT chest wo con IMPRESSION: Small to moderate bilateral pleural effusions are noted with mild dependent atelectasis. There is mild cardiomegaly. No focal consolidation otherwise. Impression dictated by: Thomas Haskins M.D.09/12/2024 12:37 PM Dictation Location: RADIO-PC-24 Transcribed By: JODI 09/12/24 1237 Dictated By: Thomas Haskins II, MD 09/12/24 1233 Signed By: 09/12/24 1237 [facility] Work Phone: [phone]) 280-723501-17-2025 History of Present illness Narrative* Debbie Mac MD - 09/05/2024 11:20 AM EST Subjective Austin Golden is a 83 y.o. female Chief Complaint Follow-up HPI Patient is here for follow-up to management for persistent atrial fibrillation/flutter, long-term anticoagulation, hypertension and hyperlipidemia. I saw her recently in the hospital. Unfortunately she had multiple issues including some related to GI with esophageal obstruction. She has been followed by Heather KLINE. She continues to experience on and off of atrial arrhythmia. She was restarted on amiodarone by Dr. Medrano not too long ago. Reviewing his note indicated that the patient will be scheduled for ablation down the road. Since last time I saw her in the hospital the patient report improvement of her GI symptomatology. Over the last year the patient underwent 2 cardiac catheterization that showed mild disease requiring medical treatment only. Today she is in atrial flutter with slightlyelevated heart rate. She has been in and out of that. Assessment 1. Persistent atrial flutter/fibrillation with clinical picture of tachybradycardia syndrome. She is status post permanent pacemaker implantation rremain in sinus rhythm. Amiodarone was discontinued few years back because of concern about pulmonary side effects. This was resumed by Dr. Medrano recently. Tikosyn was ineffective of lower dose and resulted in prolonged QTc. She was partially controlledwith sotalol. She is on the books for ablation by Dr. Medrano. In the interim she was placed on amiodarone. She is aware of side effect and the need for amiodarone surveillance testing 2. Long-term anticoagulation with Xarelto which dose due to renal dysfunction 3. History of nephrolithiasis 4. Hypertension controlled 5. Hyperlipidemia 6. BMI 28 7. Single-vessel coronary artery disease affecting small diagonal branch based on recent heart cathhe had 2 heart cath both indicated medical therapy 8. Had complaint of recurrent nausea and vomiting she was diagnosed with esophageal stricture she reported improvement 9. Status post cholecystectomy 10. Chronic complaint of shortness of breath seem to coincide with atrial fibrillation flutter Plan 1. I advised the patient to continue present medical regimen. And to proceed with ablation when it is scheduled 2. Risk, benefit and alternative anticoagulation and amiodarone reviewed patient understood and agreed. Will arrange for a pulmonary function test 3. Follow-up in 6-month 5. I reviewed her recent hospitalization/cardiac catheterization with her Review of Systems Respiratory: Positive for shortness of breath. All other systems reviewed and are negative. Vitals: 09/05/24 1119 BP: 112/80 BP Location: Left arm Patient Position: Sitting Pulse: (!) 112 Weight: 64 kg (141 lb) Height: 1.499 m (4' 11 ) Objective Physical Exam Constitutional: Appearance: Normal appearance. HENT: Nose: Nose normal. Neck: Vascular: No carotid bruit. Cardiovascular: Rate and Rhythm: Tachycardia present. Rhythm irregularly irregular. Pulses: Normal pulses. Heart sounds: Normal heart sounds. Pulmonary: Effort: Pulmonary effort is normal. Abdominal: General: Bowel sounds are normal. Palpations: Abdomen is soft. Musculoskeletal: General: Normal range of motion. Cervical back: Normal range of motion. Right lower leg: No edema. Left lower leg: No edema. Skin: General: Skin is warm and dry. Neurological: General: No focal deficit present. Mental Status: She is alert. Psychiatric: Mood and Affect: Mood normal. Behavior: Behavior normal. Thought Content: Thought content normal. Judgment: Judgment normal. Allergies Patient has no known allergies. Current Medications Current Outpatient Medications: acetaminophen (Tylenol) 325 mg capsule, Take 1 capsule (325 mg) by mouth. TAKE 1 TABLET EVERY 4 TO 6 HOURS NEEDED., Disp: , Rfl: amiodarone (Pacerone) 200 mg tablet, Take 1 tablet (200 mg) by mouth once daily., Disp: , Rfl: atorvastatin (Lipitor) 40 mg tablet, Take 1 tablet (40 mg) by mouth once daily., Disp: , Rfl: buPROPion XL (Wellbutrin XL) 150 mg 24 hr tablet, Take 1 tablet (150 mg) by mouth once daily in themorning., Disp: , Rfl: calcium carbonate/vitamin D3 (CALCIUM 600 + D,3, ORAL), Take 600 mg by mouth., Disp: , Rfl: cholecalciferol (Vitamin D-3) 50 mcg (2,000 unit) capsule, Take 1 capsule (50 mcg) by mouth once daily., Disp: , Rfl: dilTIAZem CD (Cardizem CD) 180 mg 24 hr capsule, Take 1 capsule (180 mg) by mouth once daily., Disp: 30 capsule, Rfl: 11 furosemide (Lasix) 20 mg tablet, Take 1 tablet (20 mg) by mouth once daily., Disp: , Rfl: magnesium oxide (Mag-Ox) 400 mg (241.3 mg magnesium) tablet, Take 1 tablet (400 mg) by mouth once daily., Disp: , Rfl: multivitamin (Daily Multi-Vitamin) tablet, Take 1 tablet by mouth once daily., Disp: , Rfl: rOPINIRole (Requip) 1 mg tablet, Take 1 tablet (1 mg) by mouth once daily at bedtime., Disp: , Rfl: Xarelto 15 mg tablet, TAKE 1 TABLET (15 MG) BY MOUTH ONCE DAILY IN THE EVENING. TAKE WITH MEALS., Disp: 30 tablet, Rfl: 3 dilTIAZem CD (Cardizem CD) 120 mg 24 hr capsule, TAKE 1 CAPSULE BY MOUTH DAILY, Disp: 90 capsule, Rfl: 3 pantoprazole (ProtoNix) 40 mg EC tablet, Take 1 tablet (40 mg) by mouth once daily. Do not crush, chew, or split. (Patient taking differently: Take 1 tablet (40 mg) by mouth 2 times a day. Do not crush, chew, or split.), Disp: 30 tablet, Rfl: 2 Assessment/Plan 1. Persistent atrial fibrillation (Multi) ECG 12 Lead Complete Pulmonary Function Test (Spirometry/DLCO/Lung Volumes) Thyroid Stimulating Hormone Thyroid Stimulating Hormone 2. Atrial flutter, unspecified type (Multi) 3. High risk medication use Complete Pulmonary Function Test (Spirometry/DLCO/Lung Volumes) Thyroid Stimulating Hormone Thyroid Stimulating Hormone 4. Single vessel coronary artery disease Follow Up In Cardiology 5. 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 (Multi) 6. Pacemaker 7. Mixed hyperlipidemia 8. Essential hypertension, benign 9. Chronic diastolic heart failure 10. Anticoagulated 11. BMI 28.0-28.9,adult 12. Stage 3a chronic kidney disease (Multi) 13. Shortness of breath 14. Never smoked any substance Scribe Attestation By signing my name below, I, Maggy Lerma LPN, Scribe attest that this documentation has been prepared under the direction and in the presence of MD Bo. Provider Attestation - Scribe documentation All medical record entries made by the Scribe were at my direction and personally dictated by me. Ihave reviewed the chart and agree that the record accurately reflects my personal performance of the history, physical exam, discussion and plan. documented in this [facility] Work Phone: [phone]) 439-254401-17-2025 Instructions* Patient Instructions* Maggy Vee LPN - 09/05/2024 11:20 AM EST Please bring all medicines, vitamins, and herbal supplements with you when you come to the office. Prescriptions will not be filled unless you are compliant with your follow up appointments or have a follow up appointment scheduled as per instruction of your physician. Refills should be requested at the time of your visit. Fall Prevention Education Given BMI was above normal measurement. Current weight: 64 kg (141 lb) Weight change since last visit (-) denotes wt loss -3.2 lbs Weight loss needed to achieve BMI 25: 17.5 Lbs Weight loss needed to achieve BMI 30: -7.2 Lbs Provided instructions on dietary changes Provided instructions on exercise. Amiodarone follow up per routine Pft 6 months documented in this [facility] Work Phone: 1(125) 264-350512-30-2024 History of Present illness Narrative* Katie Yung MD - 08/18/2024 5:01 PM EST Documentation: Mode: Telephone Patient Patient Work Phone: Patient Cell Preferred phone: [phone] Consent: I confirmed patient understanding of the risks and benefits of telehealth visits and obtained consent to proceed with the telehealth visit. Location of Patient: Home of patient Department of Gastroenterology and Hepatology GI Clinic Follow Up Note PCP: No primary care provider on file. Last GI Visit: Most recent visit in Gastroenterology was on 07/22/2024 with Katie Yung MD Subjective: Austin Golden is a 83 year old female with a past medical history significant for prior raul, afib on xarelto, presented for follow-up of EGJOO. She's actually feeling great. She had trouble swallowing for 3 years. But all of a sudden for the past month or so she has been able to keep food down and eat normally without any issues. She was in the hospital about 3 weeks ago and was vomiting and bring things up and so it hasn't really been a month she's been feeling better. She started on amiodarone and diltiazem recently. Past medical, surgical, family and social histories reviewed and updated as appropriate. Review Of Systems Positives as noted in HPI. All other systems were reviewed and negative. Current Medications Current Outpatient Medications Medication Sig Dispense Refill rOPINIRole (REQUIP) 1 MG tablet Take 1 mg by mouth at bedtime. atorvastatin (LIPITOR) 40 mg tablet Take 40 mg by mouth daily. amiodarone (CORDARONE) 200 MG tablet Take 200 mg by mouth daily. buPROPion ER (WELLBUTRIN XL) 150 MG XL tablet Take 150 mg by mouth daily. Multiple Vitamin (Multi Vitamin Daily) TABS Take 1 Tablet by mouth daily. Cholecalciferol (vitamin D3) 50 MCG (2000 UT) CAPS capsule Take 50 mcg by mouth daily. digoxin (LANOXIN) 125 MCG tablet Take 0.125 mg by mouth daily. furosemide (LASIX) 20 MG tablet Take 20 mg by mouth daily. DilTIAZem (CARDIZEM CD) 120 MG ER capsule Take 180 mg by mouth daily. Xarelto 15 MG tablet Take 15 mg by mouth at bedtime. pantoprazole (PROTONIX) 40 MG tablet Take 40 mg by mouth 2 times daily. magnesium oxide (MAG-OX) 400 mg (240 mg) tablet Take 400 mg by mouth daily. calcium carbonate 1500 (600 Ca) MG tablet Take 600 mg by mouth daily. No current facility-administered medications for this visit. Physical Exam There were no vitals taken for this visit. Labs and Imaging CBC (last 3 years, up to 8 values) No lab values to display. BMP (last 3 years, up to 8 values) No lab values to display. LFT's (last 3 years, up to 8 values) No lab values to display. No results found for: INR Assessment and Plan Austin Golden is a 83 year old female with a past medical history significant for prior raul, afib on xarelto, presented for follow-up of EGJOO. # EGJOO Shown on TBE where tablet is held up in hernia, small hernia, raul in tact which is likely the cause of EGJOO. However, her symptoms have resolved recently. She was recently started on diltiazem and possible this could be related to the resolution of her symptoms of EGJOO. Regardless, there is no further intervention needed at this time as her symptoms have improved so much. --she will reach out to me should symptoms worsen again. Katie Yung MD Division of Gastroenterology & Hepatology [facility] 08/18/24, 5:01 PM documented in this [id number] History of Present illness Narrative* Katie Yung MD - 07/29/2024 11:34 AM EST This encounter was opened in error. Patient was a No-Show (she was admitted to hospital at time of this appt). Please disregard. documented in this [id number] History of Present illness Narrative* Maxwell Medrano MD - 07/28/2024 11:30 AM EST CARDIOLOGY OFFICE VISIT CHIEF COMPLAINT Chief Complaint Patient presents with Follow-up HISTORY OF PRESENT ILLNESS HPI 83-year-old female with a past medical history of hypertension, hyperlipidemia. Patient had a long history of atrial fibrillation for which she started seeing [facility] since 2020 aftershe was hospitalized in [facility] for bradycardia. Adjustment of her medical therapy was performed with amiodarone at that time. 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 She was continue on amiodarone. This medication was discontinued at some point the beginning of 2022 due to long-termside effects. Initially she was placed on Tikosyn but Tikosyn produced QT prolongation and she was placed on sotalol therapy. Patient is being evaluated recently at [facility] for ablation therapy for atrial fibrillation. She also has a long history of shortness of breath but for the last 2 to 3 monthsshe has been having worsening episodes at a [...] and Xarelto therapy 50 mg 1 tablet daily.Patient had a dual-chamber pacemaker [facility] in June 29, 2021. Patient had a cardiac catheterization in 2022 that shows mild coronary artery disease. Medical therapy was recommended. During the last office visit in February 28, 2024, patient was in atrial flutter. ATP was delivered with unsuccessful termination of this arrhythmia. Patient was kept on sotalol 120 mg 1 tablet twice a day. Cardiac catheterization March 2024 CONCLUSIONS: 1. The 1st diagonal branch showed atherosclerotic disease and calcification. 2. Co-dominant right (RCA) and left (LCx) coronary artery system. 3. Double vessel coronary artery disease. 4. Prox LAD 40-50% calcified lesion; 1st Dg 70% diffuse lesion (small vessel). 5. Mid RCA 40-50% calcified lesion. 6. Large LCx with irregularities. 7. Preserved LV systolic function. Patient was seen in my office in March 17, 2024. The time we discussed the option of adjusting of antiarrhythmic therapy and perform a cardioversion. The day of the cardioversion, patient started noticing worsening chest discomfort and shortness of breath. She ended in the hospital at [facility]. During this admission she was in atrial flutter. Rates were controlled between 60 to 90 bpm. She underwent cardioversion with successful sikh to sinus rhythm for at least a day and a half but patient did not feel well during this time. She was continue complaining of abdominal pain in the epigastric area. A cardiac catheterization was performed as described above that showed moderate coronary artery disease but no intervention was performed medical therapy was recommended. Patient was seen my office in April 17, 2024. She was complaining again of shortness of breath andpalpitations and weakness. Sotalol was discontinued and she was placed on amiodarone therapy. Patient also was seen recently by GI service. She has been treated for esophagitis increasing the dose ofPPIs twice a day. Patient was seen my office in June 05. She was still complaining of shortness of breath. Patient had a pending GI evaluation. She in the mid admitted to [facility] in June 23, 2024 for shortness of breath. She underwent cardioversion July 02 with successful sikh of sinus rhythm. Patient states that after cardioversion she did not notice any difference in her shortness of breath. She went home and then her symptoms got exacerbated and she ended up back at [facility] the beginning of July 2024 with shortness of breath. No other cardiac workup or cardioversions were performed. Apparently she was placed on nitrates and also the dose of beta-blockerwere increased. Patient now is states that she can do most of his activities with no problems. She has not had any problems swallowing. No nausea. No vomiting. But also she is not sure what medication she is on. Shedid not bring her list or bottles during this evaluation. Device interrogation showed that the patient has a [employer] and her current rhythmis atrial tachycardia with ventricular paced rhythm at rate of 70 bpm. Atrial rate around 150 bpm. Modified barium study June 2024 IMPRESSION: 1. Small sliding (type I) hiatal hernia which caused impedance to the passage of a 1.3 cm tablet inthe small hiatal hernia. 2. Spontaneous gastroesophageal reflux to the level of the aortic arch. 3. Short segment of narrowing at the proximal stomach, likely due to previous fundoplication wrap. Stricture is not excluded 4. Nonspecific esophageal motility disorder. 5. Cricopharyngeus bar. Past Medical History Past Medical History: Diagnosis Date Arrhythmia Heart failure Hyperlipidemia Hypertension Social History Social History Tobacco Use Smoking status: Never Smokeless tobacco: Never Substance Use Topics Alcohol use: Never Drug use: Never Family History Family History Problem Relation Name Age of Onset Brain cancer Mother Other (arteriosclerotic cardiovascular disease) Father Allergies: Allergies Allergen Reactions Fentanyl Other stroke Outpatient Medications: Current Outpatient Medications Medication Instructions acetaminophen (TYLENOL) 325 mg amiodarone (PACERONE) 200 mg, oral, Daily atorvastatin (Lipitor) 40 mg tablet 1 tablet, Daily buPROPion XL (WELLBUTRIN XL) 150 mg, Every morning calcium carbonate/vitamin D3 (CALCIUM 600 + D,3, ORAL) 600 mg cholecalciferol (VITAMIN D-3) 2,000 Units, Daily dilTIAZem CD (CARDIZEM CD) 180 mg, oral, Daily furosemide (LASIX) 20 mg, Daily magnesium oxide (MAG-OX) 400 mg, oral, Daily multivitamin (Daily Multi-Vitamin) tablet 1 tablet, Daily pantoprazole (PROTONIX) 40 mg, oral, Daily, Do not crush, chew, or split. rivaroxaban (XARELTO) 15 mg, oral, Daily with evening meal rOPINIRole (REQUIP) 1 mg, Nightly REVIEW OF SYSTEMS Review of Systems All other systems reviewed and are negative. VITALS Vitals: 07/28/24 1158 BP: 112/74 Pulse: 84 PHYSICAL EXAM Constitutional: Appearance: Healthy appearance. Not in distress. Neck: Vascular: No JVR. JVD normal. Pulmonary: Effort: Pulmonary effort is normal. Breath sounds: Normal breath sounds. No wheezing. No rhonchi. No rales. Chest: Chest wall: Not tender to palpatation. Cardiovascular: PMI at left midclavicular line. Normal rate. Regular rhythm. Normal S1. Normal S2. Murmurs: There is no murmur. No gallop. No click. No rub. Comments: Device in the left prepectoral healing well. No signs of hematoma or infection. Pulses: Intact distal pulses. Edema: Peripheral edema absent. Abdominal: General: Bowel sounds are normal. Palpations: Abdomen is soft. Tenderness: There is no abdominal tenderness. Musculoskeletal: Normal range of motion. General: No tenderness. Skin: General: Skin is warm and dry. Neurological: General: No focal deficit present. Mental Status: Alert and oriented to person, place and time. ASSESSMENT AND PLAN Clinical impression 1. Shortness of breath, persistent 2. Paroxysmal persistent atrial fibrillation on high risk medication (sotalol). Sotalol was discontinued in March 2024. Currently she is on amiodarone 200 mg daily 3. Long-term anticoagulant therapy with Xarelto 4. Hypertension 5. Hyperlipidemia 6. Cardiomyopathy with a left ventricular ejection fraction 40% per echocardiogram August 2022 7. No evidence of ischemia per stress test in 2019 8. Tachybradycardia syndrome status post dual-chamber pacemaker implanted in 2020 Plan-recommendations I had an extensive discussion with patient and family member regarding plan to for home management of atrial fibrillation and shortness of breath. Again I personally think that her shortness of breath is all related with her atrial arrhythmias. Currently she feels great. She states that she can do most of her daily activities with no problems and she is in atrial tachycardia with ventricular paced rhythm at a rate of 70 bpm. Definitely she has significant findings in the GI area mostly related with strictures. Patient needs to have a close follow-up with GI. Meantime she will be rescheduled for pulm vein isolation to prevent atrial fibrillation. Procedure,risk, benefits and possible complications were explained to patient. All questions were answered. Patient agrees with plan. She understood that in case the rhythm reappears post ablation therapy, we can offer her rate control strategy for atrial fibrillation. Will try to discontinue amiodarone as soon as we can post ablation therapy. She has a long history of shortness of breath related with amiodarone that could be toxicity. Follow my office in 3 months or sooner if needed. Follow device clinic as scheduled. Risk factor modification and lifestyle modification discussed with patient. Diet , exercise and hydration discussed with patient. I have personally review with patient during this office visit, laboratory data, echocardiogram results, stress test results, Holter-event monitor results prior and after the last electrophysiology visit. All questions has been answered. Please excuse any errors in grammar or translation related to this dictation. Voice recognition software was utilized to prepare this document. Scribe Attestation By signing my name below, I, Raysa Fermin MA , Scribe attest that this documentation has been prepared under the direction and in the presence of Martín Medrano MD. [facility] Work Phone: [phone]) 830-645712-09-2024 Instructions* Patient Instructions* Raysa Fermin MA - 07/28/2024 11:30 AM EST PLEASE BRING ALL MEDICATION BOTTLES TO OFFICE VISITS. CALL THE OFFICE WITH MEDICATION BOTTLES TO DISCUSS AND UPDATE MEDICATION LIST. CALL [phone] OPTION #4. documented in this [facility] Work Phone: 1(139) 770-764912-02-2024 Telephone encounter Note* Telephone Encounter - Carmelita Simpson RN - 07/21/2024 12:45 PM EST Situation: Call transfer from [facility] with breathing issues. Attempt to help with EMS but difficulties. Call to EMS but told unable to send and unable to conference call. Patient disconnected. Attempt to call but no answer. Call to [facility] managed by [facility] whom is contracted via [facility] Patient lives in independent living managed by [facility]. [facility] will call to have her checked out. Patient needs to get life alert. Background: See above. Cardiology with . Assessment: Message to Dr. Yung. Abimael Recommendation: [id number] Miscellaneous Notes* Telephone Encounter - Carmelita Simpson, RN - 07/21/2024 12:45 PM EST Situation: Call transfer from [facility] with breathing issues. Attempt to help with EMS but difficulties. Call to EMS but told unable to send and unable to conference call. Patient disconnected. Attempt to call but no answer. Call to [facility] EMS managed by [facility] whom is contracted via [facility]. Patient lives in independent living managed by [facility]. [facility] will call to have her checked out. Patient needs to get life alert. Background: See above. Cardiology with . Assessment: Message to Dr. Yung. Abimael Recommendation: * Telephone Encounter - Maria Eugenia Quach - 07/21/2024 12:39 PM EST Caller transferred to nurse for sx of: Shortness of Breath, Abdominal or Chest Pain, (Patient is not sure which it is). documented in this [id number] Telephone encounter Note* Telephone Encounter - Maria Eugenia Quach - 07/21/2024 12:39 PM EST Caller transferred to nurse for sx of: Shortness of Breath, Abdominal or Chest Pain, (Patient is not sure which it is). [id number] Evaluation note* Diagnosis Onset Date Resolution Status Admit Date GERD (gastroesophageal reflu x disease) acute July 09, 2 024 2:54pm Primary hypertension acute Nove 2023 2:54pm Chronic heart failure with preserved ejection fraction (HFpEF) resolved July 09, 2 024 2:54pm Paroxysmal atrial fibrillation resolved July 09 2 024 2:54pm Esophageal obstruction inactive No vember 2023 2:54pm Stage 3a chronic kidney disease deleted July 09 2:54pm Acute kidney injury inactive Decem 2023 9:28pm Atrial fibrillation with rapid ventricular response inactive Decem 2023 9:28pm Atypical chest pain inactive Decem 2023 9:28pm Dysphagia inactive July 21, 2024 9:28pm Elevated troponin inactive Decembe r 2023 9:28pm Esophageal obstruction inactive 2023 9:28pm GERD (gastroesophageal reflu x disease) acute July 31 11:23am Primary hypertension acute Dece mber 2023 11:23am Chronic heart failure with preserved ejection fraction (HFpEF) resolved July 31 11:23am Paroxysmal atrial fibrillation resolved July 31 11:23am Esophageal obstruction inactive 2023 11:23am Stage 3a chronic kidney disease deleted July 31 11:23am Abrasion of elbow, left acute J anuary 2024 2:04pm Abrasion of knee, left, infected acute August 27 2:04pm Chest wall contusion acute Gonzalez abdoul 2024 2:04pm Acute on chronic heart failure with preserved ejection fraction (HFpEF) acute Auguar y 2024 3:04pm ASHD (arteriosclerotic heart disease) acute September 09 3:04pm Atrial fibrillation acute Augua ry 2024 3:04pm Chest wall contusion acute Gonzalez abdolu 2024 3:04pm Chronic kidney disease acute Ja nuary 2024 3:04pm Dysphagia acute September 09, 2024 3:04pm Primary hypertension acute Gonzalez abdoul 2024 3:04pm Rectal bleeding acute August 212024 3:04pm [facility] Work Phone: 1(813) 613-297911-13-2024 Progress note Author W Luiz [facility] Note Date/Time July 02, 2024 3:59pm [facility] [address] [place], [place] [id number] Cardiology Progress Note Signed Patient: Austin Golden MR#: [id number] : 1940 Acct:[id number] Age/Sex: 83 / F Adm Date: 4 Loc: Room: [address] [place] [address] Type: ADM IN Attending Dr: Shilpa Fenton MD Copies to: ~ Date of Service: 07/02/2024 Subjective Principal diagnosis: Paroxysmal A-fib, shortness of breath, history of HFpEF Interval history: Ms. Golden is a 83 year old female seen in cardiology consultation request the hospitalist in patient who presents with recurrent exertional dyspnea. She declines chest discomfort to me. Troponins are mildly elevated, initially at 101 and 85, and currently 92 (notably, she has chronic troponin elevation upon review of her EMR). Renal function is normal. Patient had recent heart catheterization performed earlier this year at [facility] revealing mild coronary disease and normal left ventricular function She has a history of heart failure with preserved ejection fraction, EF historically 55+ percent She has a history of paroxysmal atrial fibrillation, pacemaker, obstructive sleep apnea. She is very anxious in general, and his high anxiety presently in regards to her son's cancer diagnosis. She does not sleep well, spends most of the night up worrying about multiple things. Chest x-ray is clear with mild cardiomegaly and evidence of pacemaker, BNP is normal at 84, ECG reveals ventricular paced rhythm with underlying A-fib January of this past year she was admitted for pulmonary edema, atrial fibrillationwith RVR underwent successful cardioversion and diuresis. It appears that her atrial fibrillation (diastolic dysfunction) is recurrent, likely causative for her shortness of breath Recommendations: Escalate amiodarone to 400 daily, and repeat cardioversion Interim evaluation 07/02/2024: Patient successfully cardioverted back to sinus rhythm this morning. Feeling better and improved. Escalated amiodarone to 400 daily, discontinue digoxin, will continue magnesium, furosemide and diltiazem. Patient can follow-up with Dr. Mac and Dr. Medrano (electrophysiology) for further management. She is safe to be discharged today. Discussed mechanism ofdiastolic dysfunction, exertional dyspnea and shortness of breath associated with atrial fibrillation with the patient and her family. Patient is already had conversation about atrial fibrillation with Dr. Medrano and Dr. Mac; it appears she may be willing to reengage in this conversation. Exam Physical Exam Vital Signs: Temp Pulse Resp BP Pulse Ox O2 Del Method O2 Flow Rate 97.6 F 72 18 134/76 95 Nasal Cannula 2 07/02/24 15:08 07/02/24 15:08 07/02/24 15:08 07/02/24 15:08 07/02/24 15:08 07/02/24 15:10 07/02/24 15:10 Const General: cooperative, well developed and in distress mild and respiratory Nutritional Appearance: average body habitus Orientation: alert, awake and oriented x3 HEENT Head: normal to inspection Neck Neck: normal visual inspection Chest Chest palpation & inspection: normal inspection of the chest Resp Effort & Inspection: normal respiratory effort Auscultation: clear to auscultation bilaterally Cardio Rate: regular rate Rhythm: abnormal rhythm Heart Sounds: S1 normal and S2 normal Bruits: no carotid bruits Pulses: radial pulses present GI Palpation: soft Skin General: no rashes or lesions noted Neuro General: patient alert, patient awake and patient oriented x3 Cognition: normal cognition Speech: speech normal Extrem General: no clubbing, cyanosis or edema Psych Mood: anxious mood Objective Labs 07/02/24 11:55 07/02/24 11:55 Labs: Laboratory Results - last 24 hr 07/02/24 07/02/24 07/02/24 06:37 11:42 11:55 Corrected WBC 9.1 Uncorrected WBC Count 9.1 RBC 4.08 Hgb 12.8 Hct 38.5 MCV 94.4 MCH 31.5 MCHC 33.3 RDW 14.2 Plt Count 238 MPV 8.2 Neut % (Auto) 72.9 Lymph % (Auto) 19.1 [place] % (Auto) 4.8 Eos % (Auto) 1.9 Baso % (Auto) 1.3 Nucleat RBC Rel Count 0.2 Neut # (Auto) 6.7 Lymph # (Auto) 1.7 [place] # (Auto) 0.4 Eos # (Auto) 0.2 Baso # (Auto) 0.1 PHA Creatinine Clear 35.63 32.31 Sodium 137 138 Potassium 4.1 4.0 Chloride 104 104 Carbon Dioxide 24.2 23.3 Anion Gap 12.9 14.7 BUN 23 24 Creatinine 1.07 1.18 Est GFR (CKD-EPI) 52.185 46.403 Glucose 101 H 166 H POC Glucose 172 Calcium 8.4 L 8.4 L A&P - Cardiology (1) Elevated troponin: Code(s): R79.89 - Other specified abnormal findings of blood chemistry (2) High risk medication use: Code(s): Z79.899 - Other halfway (current) drug therapy (3) Chronic heart failure with preserved ejection fraction (HFpEF): Code(s): I50.32 - Chronic diastolic (congestive) heart failure (4) Paroxysmal atrial fibrillation: Code(s): I48.0 - Paroxysmal atrial fibrillation Plan Escalate amiodarone to 400 daily Proceed with elective cardioversion tomorrow No evidence of chest pain (mild coronary disease on March 2024 heart catheterization), with normal LV function Documented By: Javed Dee DO 07/02/241555 Signed By: <Electronically signed by Javed Dee DO> 07/02/24 1554 [facility] Work Phone: 1(388) 443-775911-13-2024 [place] [address] Cardiology Progress Note Signed Patient: Austin Golden MR#: [id number] : 1940 Acct:[id number] Age/Sex: 83 / F Adm Date: 4 Loc: Room: [address] [place] [address] Type: ADM IN Attending Dr: Shilpa Fenton MD Copies to: ~ Date of Service: 07/02/2024 Subjective Principal diagnosis: Paroxysmal A-fib, shortness of breath, history of HFpEF Interval history: Ms. Golden is a 83 year old female seen in cardiology consultation request the hospitalist in patient who presents with recurrent exertional dyspnea. She declines chest discomfort to mn. Troponins are mildly elevated, initially at 101 and 85, and currently 92 (notably, she has chronic troponin elevation upon review of her EMR). Renal function is normal. Patient had recent heart catheterization performed earlier this year at [facility] revealing mild coronary disease and normal left ventricular function She has a history of heart failure with preserved ejection fraction, EF historically 55+ percent She has a history of paroxysmal atrial fibrillation, pacemaker, obstructive sleep apnea. She is very anxious in general, and his high anxiety presently in regards to her son's cancer diagnosis. She does not sleep well, spends most of the night up worrying about multiple things. Chest x-ray is clear with mild cardiomegaly and evidence of pacemaker, BNP is normal at 84, ECG reveals ventricular paced rhythm with underlying A-fib January of this past year she was admitted for pulmonary edema, atrial fibrillationwith RVR underwent successful cardioversion and diuresis. It appears that her atrial fibrillation (diastolic dysfunction) is recurrent, likely causative for her shortness of breath Recommendations: Escalate amiodarone to 400 daily, and repeat cardioversion Interim evaluation 07/02/2024: Patient successfully cardioverted back to sinus rhythm this morning.Feeling better and improved. Escalated amiodarone to 400 daily, discontinue digoxin, will continue magnesium, furosemide and diltiazem. Patient can follow-up with Dr. Mac and Dr. Medrano (electrophysiology) for further management. She is safe to be discharged today. Discussed mechanism ofdiastolic dysfunction, exertional dyspnea and shortness of breath associated with atrial fibrillation withthe patient and her family. Patient is already had conversation about atrial fibrillation with Dr. Medrano and Dr. Mac; it appears she may be willing to reengage in this conversation. Exam Physical Exam Vital Signs: Temp Pulse Resp BP Pulse Ox O2 Del Method O2 Flow Rate 97.6 F 72 18 134/76 95 Nasal Cannula 2 07/02/24 15:08 07/02/24 15:08 07/02/24 15:08 07/02/24 15:08 07/02/24 15:08 07/02/24 15:10 07/02/24 15:10 Const General: cooperative, well developed and in distress mild and respiratory Nutritional Appearance: average body habitus Orientation: alert, awake and oriented x3 HEENT Head: normal to inspection Neck Neck: normal visual inspection Chest Chest palpation & inspection: normal inspection of the chest Resp Effort & Inspection: normal respiratory effort Auscultation: clear to auscultation bilaterally Cardio Rate: regular rate Rhythm: abnormal rhythm Heart Sounds: S1 normal and S2 normal Bruits: no carotid bruits Pulses: radial pulses present GI Palpation: soft Skin General: no rashes or lesions noted Neuro General: patient alert, patient awake and patient oriented x3 Cognition: normal cognition Speech: speech normal Extrem General: no clubbing, cyanosis or edema Psych Mood: anxious mood Objective Labs 07/02/24 11:55 07/02/24 11:55 Labs: Laboratory Results - last 24 hr 07/02/24 07/02/24 07/02/24 06:37 11:42 11:55 Corrected WBC 9.1 Uncorrected WBC Count 9.1 RBC 4.08 Hgb 12.8 Hct 38.5 MCV 94.4 MCH 31.5 MCHC 33.3 RDW 14.2 Plt Count 238 MPV 8.2 Neut % (Auto) 72.9 Lymph % (Auto) 19.1 [place] % (Auto) 4.8 Eos % (Auto) 1.9 Baso % (Auto) 1.3 Nucleat RBC Rel Count 0.2 Neut # (Auto) 6.7 Lymph # (Auto) 1.7 [place] # (Auto) 0.4 Eos # (Auto) 0.2 Baso # (Auto) 0.1 PHA Creatinine Clear 35.63 32.31 Sodium 137 138 Potassium 4.1 4.0 Chloride 104 104 Carbon Dioxide 24.2 23.3 Anion Gap 12.9 14.7 BUN 23 24 Creatinine 1.07 1.18 Est GFR (CKD-EPI) 52.185 46.403 Glucose 101 H 166 H POC Glucose 172 Calcium 8.4 L 8.4 L A&P - Cardiology (1) Elevated troponin: Code(s): R79.89 - Other specified abnormal findings of blood chemistry (2) High risk medication use: Code(s): Z79.899 - Other terminologist (current) drug therapy (3) Chronic heart failure with preserved ejection fraction (HFpEF): Code(s): I50.32 - Chronic diastolic (congestive) heart failure (4) Paroxysmal atrial fibrillation: Code(s): I48.0 - Paroxysmal atrial fibrillation Plan Escalate amiodarone to 400 daily Proceed with elective cardioversion tomorrow No evidence of chest pain (mild coronary disease on March 2024 heart catheterization), with normalLV function Documented By: Javed Dee DO 07/02/241555 Signed By: 07/02/24 1559 [facility]11-13-2024 Progress note Author Shilpa Fenton [facility] Note Date/Time July 02, 2024 1:06pm [facility] [address] [place] [address] Hospitalist Progress Note Signed Patient: Austin Golden MR#: [id number] : 1940 Acct:[id number] Age/Sex: 83 / F Adm Date: 4 Loc: 3T Room: [address] [place] [address] Type: ADM IN Attending Dr: Shilpa Fenton MD Copies to: ~ Date of Service: 07/02/2024 Subjective Subjective Narrative: Patient has been seen and examined today. Patient underwent cardioversion this morning. After she came back she went to the bathroom and sustained a syncopal episode, that time blood pressure was noted to be systolic in 90s, which improved after IV hydration I did examine the patient. She still complains of shortness of breath but no chest pain no dizziness no palpitations Physical exam: General -awake, alert, oriented ?3, not in acute distress, appears to be weak Cardiovascular -S1 with S2, regular rate Pulmonary - clear to auscultation bilaterally Gastrointestinal - abdomen is soft, nondistended, nontender, bowel sounds positive, there is no rigidity, no rebound Extremities -no edema Neurological -no focal neurological dysfunction noted Laboratory work up and Imaging studies reviewed vice president of compliance - reviewed, remains in atrial fibrillation but intermittently paced ventricular EKG - p repeated, paced atrium Exam Physical Exam Vital Signs: Temp Pulse Resp BP Pulse Ox O2 Del Method O2 Flow Rate 36.6 C 70 18 118/70 97 Nasal Cannula 3 07/02/24 07:35 07/02/24 12:49 07/02/24 12:49 07/02/24 12:49 07/02/24 12:49 07/02/24 12:49 07/02/24 12:49 Objective Lab Results 07/02/24 11:55 07/02/24 11:55 Meds Allergies and Active Meds Allergies No Known Allergies Allergy (Verified 06/30/24 13:38) Active Meds: Active Medications Generic Name Dose Route Start Last Admin Trade Name Maria Dolores PRN Reason Stop Dose Admin Acetaminophen 650 mg 06/30/24 17:44 07/02/24 08:14 Acetaminophen 325 Mg Tablet PO 06/30/25 17:43 650 mg Q4H PRN Administration Pain Scale 1 - 5 Albuterol 2.5 mg 06/30/24 17:44 Albuterol Neb 2.5 Mg/3 Ml Vial.Neb INHALATION 06/30/25 17:43 Q2H PRN Shortness Of Breath Amiodarone HCl 400 mg 07/02/24 09:00 07/02/24 08:13 Amiodarone 200 Mg Tablet PO 07/02/25 08:59 400 mg DAILY KWAN Administration Atorvastatin Calcium 40 mg 07/01/24 09:00 07/02/24 08:14 Atorvastatin 40 Mg Tablet PO 07/01/25 08:59 40 mg DAILY KWAN Administration Atropine Sulfate 1 mg 07/02/24 09:30 Atropine Sulfate 1 Mg/10 Ml Syringe IV-PUSH ONCE PRN Bradycardia Bupropion HCl 300 mg 07/01/24 09:00 07/02/24 08:14 Bupropion 300 Mg Tab.Er.24h PO 07/01/25 08:59 300 mg QAM KWAN Administration Diltiazem HCl 180 mg 07/01/24 09:00 07/02/24 08:14 Diltiazem Cd.24hr 180 Mg Cap.Er.24h PO 07/01/25 08:59 180 mg DAILY KWAN Administration Docusate Sodium 200 mg 06/30/24 17:44 Docusate 100 Mg Capsule PO 06/30/25 17:43 BID PRN Constipation Hydralazine HCl 10 mg 06/30/24 17:44 Hydralazine 20 Mg/Ml Vial IV-PUSH 06/30/25 17:43 Q4H PRN if SBP > 185 Pantoprazole Sodium 40 mg 06/30/24 21:00 07/02/24 08:14 Pantoprazole 40 Mg Tablet.Dr PO 06/30/25 20:59 40 mg BID KWAN Administration Potassium Chloride 40 meq 07/02/24 07:00 Potassium Chloride Er 20 Meq Tab.Er.Prt PO STAT PRN Hypokalemia Rivaroxaban 15 mg 07/01/24 22:00 07/01/24 21:56 Rivaroxaban 15 Mg Tablet PO 07/01/25 21:59 15 mg HS KWAN Administration Ropinirole HCl 1 mg 06/30/24 22:00 07/01/24 21:56 Ropinirole 1 Mg Tablet PO 06/30/25 21:59 1 mg QHS KWAN Administration Sodium Chloride 0 ml 06/30/24 13:38 06/30/24 15:09 Sodium Chloride 0.9 % 10 Ml Syringe IV-PUSH 06/30/25 13:37 10 ml PRN PRN Administration Flush Sodium Chloride 0 ml 07/01/24 12:05 07/02/24 09:16 Sodium Chloride 0.9 % 10 Ml Syringe IV-PUSH 07/01/25 12:04 30 ml PRN PRN Administration Flush A&P - Hospitalist Assessment/Plan (1) Elevated troponin: Plan 1. Shortness of breath, of unclear etiology, patient does not like to be in congestive heart failure, unlikely PE as the patient is already anticoagulated, rule out acute coronary syndrome Troponins elevated, EKG nonischemic, denies any chest pain Interrogated pacemaker Could be related due to atrial fibrillation, status post cardioversion 2. Atrial fibrillation, patient takes amiodarone, canverted to normal sinus rhythm Status post electrical cardioversion 3. Chronic kidney disease stage III, creatinine improved since admission 4. Syncopal episode, suspect vasovagal, improved with IV hydration, denies any chest pain Documented By: Shilpa Fenton MD 07/02/24 1303 Signed By: <Electronically signed by Shilpa Fenton MD> 07/02/24 1306 [facility] Work Phone: 1(688) 577-720611-13-2024 [place] [address] Hospitalist Progress Note Signed Patient: Austin Golden MR#: [id number] : 1940 Acct:[id number] Age/Sex: 83 / F Adm Date: 4 Loc: Room: [address] [place] [address] Type: ADM IN Attending Dr: Shilpa Fenton MD Copies to: ~ Date of Service: 07/02/2024 Subjective Subjective Narrative: Patient has been seen and examined today. Patient underwent cardioversion this morning. After she came back she went to the bathroom and sustained a syncopal episode, that time blood pressure was noted to be systolic in 90s, which improved after IV hydration I did examine the patient. She still complains of shortness of breath but no chest pain no dizziness no palpitations Physical exam: General -awake, alert, oriented ?3, not in acute distress, appears to be weak Cardiovascular -S1 with S2, regular rate Pulmonary - clear to auscultation bilaterally Gastrointestinal - abdomen is soft, nondistended, nontender, bowel sounds positive, there is no rigidity, no rebound Extremities -no edema Neurological -no focal neurological dysfunction noted Laboratory work up and Imaging studies reviewed vice president of compliance - reviewed, remains in atrial fibrillation but intermittently paced ventricular EKG - p repeated, paced atrium Exam Physical Exam Vital Signs: Temp Pulse Resp BP Pulse Ox O2 Del Method O2 Flow Rate 36.6 C 70 18 118/70 97 Nasal Cannula 3 07/02/24 07:35 07/02/24 12:49 07/02/24 12:49 07/02/24 12:49 07/02/24 12:49 07/02/24 12:49 07/02/24 12:49 Objective Lab Results 07/02/24 11:55 07/02/24 11:55 Meds Allergies and Active Meds Allergies No Known Allergies Allergy (Verified 06/30/24 13:38) Active Meds: Active Medications Generic Name Dose Route Start Last Admin Trade Name Freq PRN Reason Stop Dose Admin Acetaminophen 650 mg 06/30/24 17:44 07/02/24 08:14 Acetaminophen 325 Mg Tablet PO 06/30/25 17:43 650 mg Q4H PRN Administration Pain Scale 1 - 5 Albuterol 2.5 mg 06/30/24 17:44 Albuterol Neb 2.5 Mg/3 Ml Vial.Neb INHALATION 06/30/25 17:43 Q2H PRN Shortness Of Breath Amiodarone HCl 400 mg 07/02/24 09:00 07/02/24 08:13 Amiodarone 200 Mg Tablet PO 07/02/25 08:59 400 mg DAILY KWAN Administration Atorvastatin Calcium 40 mg 07/01/24 09:00 07/02/24 08:14 Atorvastatin 40 Mg Tablet PO 07/01/25 08:59 40 mg DAILY KWAN Administration Atropine Sulfate 1 mg 07/02/24 09:30 Atropine Sulfate 1 Mg/10 Ml Syringe IV-PUSH ONCE PRN Bradycardia Bupropion HCl 300 mg 07/01/24 09:00 07/02/24 08:14 Bupropion 300 Mg Tab.Er.24h PO 07/01/25 08:59 300 mg QAM KWAN Administration Diltiazem HCl 180 mg 07/01/24 09:00 07/02/24 08:14 Diltiazem Cd.24hr 180 Mg Cap.Er.24h PO 07/01/25 08:59 180 mg DAILY KWAN Administration Docusate Sodium 200 mg 06/30/24 17:44 Docusate 100 Mg Capsule PO 06/30/25 17:43 BID PRN Constipation Hydralazine HCl 10 mg 06/30/24 17:44 Hydralazine 20 Mg/Ml Vial IV-PUSH 06/30/25 17:43 Q4H PRN if SBP > 185 Pantoprazole Sodium 40 mg 06/30/24 21:00 07/02/24 08:14 Pantoprazole 40 Mg Tablet.Dr PO 06/30/25 20:59 40 mg BID KWAN Administration Potassium Chloride 40 meq 07/02/24 07:00 Potassium Chloride Er 20 Meq Tab.Er.Prt PO STAT PRN Hypokalemia Rivaroxaban 15 mg 07/01/24 22:00 07/01/24 21:56 Rivaroxaban 15 Mg Tablet PO 07/01/25 21:59 15 mg HS KWAN Administration Ropinirole HCl 1 mg 06/30/24 22:00 07/01/24 21:56 Ropinirole 1 Mg Tablet PO 06/30/25 21:59 1 mg QHS KWAN Administration Sodium Chloride 0 ml 06/30/24 13:38 06/30/24 15:09 Sodium Chloride 0.9 % 10 Ml Syringe IV-PUSH 06/30/25 13:37 10 ml PRN PRN Administration Flush Sodium Chloride 0 ml 07/01/24 12:05 07/02/24 09:16 Sodium Chloride 0.9 % 10 Ml Syringe IV-PUSH 07/01/25 12:04 30 ml PRN PRN Administration Flush A&P - Hospitalist Assessment/Plan (1) Elevated troponin: Plan 1. Shortness of breath, of unclear etiology, patient does not like to be in congestive heart failure, unlikely PE as the patient is already anticoagulated, rule out acute coronary syndrome Troponins elevated, EKG nonischemic, denies any chest pain Interrogated pacemaker Could be related due to atrial fibrillation, status post cardioversion 2. Atrial fibrillation, patient takes amiodarone, canverted to normal sinus rhythm Status post electrical cardioversion 3. Chronic kidney disease stage III, creatinine improved since admission 4. Syncopal episode, suspect vasovagal, improved with IV hydration, denies any chest pain Documented By: Shilpa Fenton MD 07/02/24 1303 Signed By: 07/02/24 1306 [facility]11-13-[address] [address] Cardiology Procedure Note Signed Patient: Austin Golden MR#: [id number] : 1940 Acct:[id number] Age/Sex: 83 / F Adm Date: 4 Loc: 3T Room: [address] [place] [address] Type: ADM IN Attending Dr: Shilpa Fenton MD Copies to: DO Jimena Carias MD, [facility] Shilpa Fenton MD~ Cardiology Procedures DATE/PROVIDER Date: 07/02/2024 Jimena Smith MD CARDIOVERSION ASA Classification: 2 Mallampati Score: Class II Pre-Operative Diagnosis: Atrial Fibrillation Post-Operative Diagnosis: Sikhism of sinus rhythm Procedure Description: After obtaining informed consent the patient was brought to the procedure room and was placed on telemetry, pulse oximetry blood pressure monitor. Patient received sedation with propofol at a dose of40 mg intravenously achieving immediate unconsciousness. A single shock utilizing 150 J in synchronized biphasic mode successfully converted patient back to normal sinus rhythm confirmed by analysis of the pacemaker. She has marked sinus bradycardia with heart rate around 40 bpm. The patient had nocomplications and regained consciousness within minutes and demonstrated no focal neurological deficit. Post cardioversion ECG revealed AV sequential pacemaker at a rate of 60 bpm. Documented By: Jimena Smith MD, [facility] 911 Signed By: 07/02/24 0914 [facility]11-12-2024 Progress note Author Shilpa Fenton [facility] Note Date/Time July 01, 2024 3:17pm [facility] [address] [place] [address] Hospitalist Progress Note Signed Patient: Austin Golden MR#: [id number] : 1940 Acct:[id number] Age/Sex: 83 / F Adm Date: 4 Loc: 3T Room: [address] [place] [address] Type: ADM IN Attending Dr: Shilpa Fenton MD Copies to: ~ Date of Service: 07/01/2024 Subjective Subjective Narrative: Patient has been seen and examined today. She still complains of shortness of breath, however she is saturating 96% on room air, denies any chest pain Physical exam: General -awake, alert, oriented ?3, not in acute distress Cardiovascular -S1 with S2, regular rate Pulmonary - clear to auscultation bilaterally Gastrointestinal - abdomen is soft, nondistended, nontender, bowel sounds positive, there is no rigidity, no rebound Extremities -no edema Neurological -no focal neurological dysfunction noted Laboratory work up and Imaging studies reviewed vice president of compliance - reviewed, remains in atrial fibrillation but intermittently paced ventricular EKG - personally reviewed by me Exam Physical Exam Vital Signs: Temp Pulse Resp BP Pulse Ox O2 Del Method 36.4 C 97 18 128/75 96 Room Air 07/01/24 11:30 07/01/24 11:30 07/01/24 11:30 07/01/24 11:30 07/01/24 11:30 07/01/24 11:30 Objective Lab Results 07/01/24 06:40 07/01/24 06:40 Meds Allergies and Active Meds Allergies No Known Allergies Allergy (Verified 06/30/24 13:38) Active Meds: Active Medications Generic Name Dose Route Start Last Admin Trade Name Freq PRN Reason Stop Dose Admin Acetaminophen 650 mg 06/30/24 17:44 07/01/24 09:02 Acetaminophen 325 Mg Tablet PO 06/30/25 17:43 650 mg Q4H PRN Administration Pain Scale 1 - 5 Albuterol 2.5 mg 06/30/24 17:44 Albuterol Neb 2.5 Mg/3 Ml Vial.Neb INHALATION 06/30/25 17:43 Q2H PRN Shortness Of Breath Amiodarone HCl 400 mg 07/02/24 09:00 Amiodarone 200 Mg Tablet PO 07/02/25 08:59 DAILY KWAN Atorvastatin Calcium 40 mg 07/01/24 09:00 07/01/24 09:01 Atorvastatin 40 Mg Tablet PO 07/01/25 08:59 40 mg DAILY KWAN Administration Atropine Sulfate 1 mg 07/02/24 09:30 Atropine Sulfate 1 Mg/10 Ml Syringe IV-PUSH ONCE PRN Bradycardia Bupropion HCl 300 mg 07/01/24 09:00 07/01/24 09:01 Bupropion 300 Mg Tab.Er.24h PO 07/01/25 08:59 300 mg QAM KWAN Administration Diltiazem HCl 180 mg 07/01/24 09:00 07/01/24 09:01 Diltiazem Cd.24hr 180 Mg Cap.Er.24h PO 07/01/25 08:59 180 mg DAILY KWAN Administration Docusate Sodium 200 mg 06/30/24 17:44 Docusate 100 Mg Capsule PO 06/30/25 17:43 BID PRN Constipation Hydralazine HCl 10 mg 06/30/24 17:44 Hydralazine 20 Mg/Ml Vial IV-PUSH 06/30/25 17:43 Q4H PRN if SBP > 185 Pantoprazole Sodium 40 mg 06/30/24 21:00 07/01/24 09:01 Pantoprazole 40 Mg Tablet.Dr PO 06/30/25 20:59 40 mg BID KWAN Administration Potassium Chloride 40 meq 07/02/24 07:00 Potassium Chloride Er 20 Meq Tab.Er.Prt PO STAT PRN Hypokalemia Propofol 0 mg 07/02/24 09:30 Propofol 200 Mg/20 Ml Vial IV-PUSH 07/02/24 09:31 ONCE ONE Rivaroxaban 15 mg 07/01/24 22:00 Rivaroxaban 15 Mg Tablet PO 07/01/25 21:59 HS KWAN Ropinirole HCl 1 mg 06/30/24 22:00 06/30/24 21:46 Ropinirole 1 Mg Tablet PO 06/30/25 21:59 1 mg QHS KWAN Administration Sodium Chloride 0 ml 06/30/24 13:38 06/30/24 15:09 Sodium Chloride 0.9 % 10 Ml Syringe IV-PUSH 06/30/25 13:37 10 ml PRN PRN Administration Flush Sodium Chloride 0 ml 07/01/24 12:05 Sodium Chloride 0.9 % 10 Ml Syringe IV-PUSH 07/01/25 12:04 PRN PRN Flush Triamcinolone Acetonide 1 applic 07/02/24 09:30 Triamcinolone 0.1% Cream 15 Gm Tube TOPICAL 07/02/24 09:31 ONCE ONE A&P - Hospitalist Assessment/Plan (1) Elevated troponin: Plan 1. Shortness of breath, of unclear etiology, patient does not like to be in congestive heart failure, unlikely PE as the patient is already anticoagulated, rule out acute coronary syndrome Troponins elevated, EKG nonischemic, denies any chest pain Interrogated pacemaker Could be related due to atrial fibrillation, plan for cardioversion in a.m. 2. Atrial fibrillation, patient takes amiodarone, she is in atrial fibrillation, Plan for cardioversion in a.m. 3. Chronic kidney disease stage III, creatinine stable Documented By: Shilpa Fenton MD 07/01/24 1515 Signed By: <Electronically signed by Shilpa Fenton MD> 07/01/24 7586 [facility] Work Phone: 1(348) 632-328811-12-2024 [place] [id number] Hospitalist Progress Note Signed Patient: Austin Golden MR#: [id number] : 1940 Acct:[id number] Age/Sex: 83 / F Adm Date: 4 Loc: Room: [address] [place] [address] Type: ADM IN Attending Dr: Shilpa Fenton MD Copies to: ~ Date of Service: 07/01/2024 Subjective Subjective Narrative: Patient has been seen and examined today. She still complains of shortness of breath, however she is saturating 96% on room air, denies any chest pain Physical exam: General -awake, alert, oriented ?3, not in acute distress Cardiovascular -S1 with S2, regular rate Pulmonary - clear to auscultation bilaterally Gastrointestinal - abdomen is soft, nondistended, nontender, bowel sounds positive, there is no rigidity, no rebound Extremities -no edema Neurological -no focal neurological dysfunction noted Laboratory work up and Imaging studies reviewed vice president of compliance - reviewed, remains in atrial fibrillation but intermittently paced ventricular EKG - personally reviewed by me Exam Physical Exam Vital Signs: Temp Pulse Resp BP Pulse Ox O2 Del Method 36.4 C 97 18 128/75 96 Room Air 07/01/24 11:30 07/01/24 11:30 07/01/24 11:30 07/01/24 11:30 07/01/24 11:30 07/01/24 11:30 Objective Lab Results 07/01/24 06:40 07/01/24 06:40 Meds Allergies and Active Meds Allergies No Known Allergies Allergy (Verified 06/30/24 13:38) Active Meds: Active Medications Generic Name Dose Route Start Last Admin Trade Name Freq PRN Reason Stop Dose Admin Acetaminophen 650 mg 06/30/24 17:44 07/01/24 09:02 Acetaminophen 325 Mg Tablet PO 06/30/25 17:43 650 mg Q4H PRN Administration Pain Scale 1 - 5 Albuterol 2.5 mg 06/30/24 17:44 Albuterol Neb 2.5 Mg/3 Ml Vial.Neb INHALATION 06/30/25 17:43 Q2H PRN Shortness Of Breath Amiodarone HCl 400 mg 07/02/24 09:00 Amiodarone 200 Mg Tablet PO 07/02/25 08:59 DAILY KWAN Atorvastatin Calcium 40 mg 07/01/24 09:00 07/01/24 09:01 Atorvastatin 40 Mg Tablet PO 07/01/25 08:59 40 mg DAILY KWAN Administration Atropine Sulfate 1 mg 07/02/24 09:30 Atropine Sulfate 1 Mg/10 Ml Syringe IV-PUSH ONCE PRN Bradycardia Bupropion HCl 300 mg 07/01/24 09:00 07/01/24 09:01 Bupropion 300 Mg Tab.Er.24h PO 07/01/25 08:59 300 mg QAM KWAN Administration Diltiazem HCl 180 mg 07/01/24 09:00 07/01/24 09:01 Diltiazem Cd.24hr 180 Mg Cap.Er.24h PO 07/01/25 08:59 180 mg DAILY KWAN Administration Docusate Sodium 200 mg 06/30/24 17:44 Docusate 100 Mg Capsule PO 06/30/25 17:43 BID PRN Constipation Hydralazine HCl 10 mg 06/30/24 17:44 Hydralazine 20 Mg/Ml Vial IV-PUSH 06/30/25 17:43 Q4H PRN if SBP > 185 Pantoprazole Sodium 40 mg 06/30/24 21:00 07/01/24 09:01 Pantoprazole 40 Mg Tablet.Dr PO 06/30/25 20:59 40 mg BID KWAN Administration Potassium Chloride 40 meq 07/02/24 07:00 Potassium Chloride Er 20 Meq Tab.Er.Prt PO STAT PRN Hypokalemia Propofol 0 mg 07/02/24 09:30 Propofol 200 Mg/20 Ml Vial IV-PUSH 07/02/24 09:31 ONCE ONE Rivaroxaban 15 mg 07/01/24 22:00 Rivaroxaban 15 Mg Tablet PO 07/01/25 21:59 HS KWAN Ropinirole HCl 1 mg 06/30/24 22:00 06/30/24 21:46 Ropinirole 1 Mg Tablet PO 06/30/25 21:59 1 mg QHS KWAN Administration Sodium Chloride 0 ml 06/30/24 13:38 06/30/24 15:09 Sodium Chloride 0.9 % 10 Ml Syringe IV-PUSH 06/30/25 13:37 10 ml PRN PRN Administration Flush Sodium Chloride 0 ml 07/01/24 12:05 Sodium Chloride 0.9 % 10 Ml Syringe IV-PUSH 07/01/25 12:04 PRN PRN Flush Triamcinolone Acetonide 1 applic 07/02/24 09:30 Triamcinolone 0.1% Cream 15 Gm Tube TOPICAL 07/02/24 09:31 ONCE ONE A&P - Hospitalist Assessment/Plan (1) Elevated troponin: Plan 1. Shortness of breath, of unclear etiology, patient does not like to be in congestive heart failure, unlikely PE as the patient is already anticoagulated, rule out acute coronary syndrome Troponins elevated, EKG nonischemic, denies any chest pain Interrogated pacemaker Could be related due to atrial fibrillation, plan for cardioversion in a.m. 2. Atrial fibrillation, patient takes amiodarone, she is in atrial fibrillation, Plan for cardioversion in a.m. 3. Chronic kidney disease stage III, creatinine stable Documented By: Shilpa Fenton MD 07/01/241514 Signed By: 07/01/24 [facility]7 [facility]11-12-2024 Consult note Author Javed Dee [facility] Note Date/Time July 01, 2024 11:50am [facility] [address] [place] [address] Cardiology Consult Note Signed Patient: Austin Golden MR#: [id number] : 1940 Acct:[id number] Age/Sex: 83 / F Adm Date: 4 Loc: Room: [address] [place] [address] Type: ADM IN Attending Dr: Shilpa Fenton MD Copies to: DO Shilpa Carias MD W Scott Sheldon, DO~ Cardiology HPI History of Present Illness Consult Date: 07/01/24 Reason for Consult: Exertional dyspnea, anxiety, HFpEF, paroxysmal A-fib HPI: Ms. Golden is a 83 year old female seen in cardiology consultation request the hospitalist in patient who presents with recurrent exertional dyspnea. She declines chest discomfort to me. Troponins are mildly elevated, initially at 101 and 85, and currently 92 (notably, she has chronic troponin elevation upon review of her EMR). Renal function is normal. Patient had recent heart catheterization performed earlier this year at [facility] revealing mild coronary disease and normal left ventricular function She has a history of heart failure with preserved ejection fraction, EF historically 55+ percent She has a history of paroxysmal atrial fibrillation, pacemaker, obstructive sleep apnea. She is very anxious in general, and his high anxiety presently in regards to her son's cancer diagnosis. She does not sleep well, spends most of the night up worrying about multiple things. Chest x-ray is clear with mild cardiomegaly and evidence of pacemaker, BNP is normal at 84, ECG reveals ventricular paced rhythm with underlying A-fib January of this past year she was admitted for pulmonary edema, atrial fibrillationwith RVR underwent successful cardioversion and diuresis. It appears that her atrial fibrillation (diastolic dysfunction) is recurrent, likely causative for her shortness of breath Recommendations: Escalate amiodarone to 400 daily, and repeat cardioversion REPLACED BY [facility] Medical History (Updated 07/01/24 @ 11:49 by Javed Dee DO) Dyspnea on exertion Problem List clean-up per request of Phys. EHR Cmte Anxiety High risk medication use Esophageal dysmotility Chronic venous insufficiency of lower extremity Dyspepsia Vomiting Acute on chronic heart failure with preserved ejection fraction (HFpEF) GERD (gastroesophageal reflux disease) Chronic heart failure with preserved ejection fraction (HFpEF) Echo: LVEF 55%, VALERIE, RVSP 21, normal RV size/function - 01/2024 Sick sinus syndrome Fibromyalgia Stage 3a chronic [...] List clean-up per request of Phys. [facility]HR [facility] Kidney stones removal of kidney stone R flank in 2021 Problem List clean-up per request of Phys. EHR [facility] Pacemaker Problem List clean-up per request of Phys. EHR [facility] Atrial fibrillation, persistent Problem List clean-up per request of Phys. EHR [facility] COVID-19 2019 Problem List clean-up per request of Phys. EHR [facility] Atrial fibrillation with RVR Problem List clean-up per request of Phys. EHR [facility] Hernia of abdominal wall Problem List clean-up per request of Phys. EHR [facility] Surgical History History of repair of hiatal hernia (~2014) History of left heart catheterization (~03/2024) LHC: LAD 40-50%, diagonal 70%, RCA 40-50%, normal LVEF - 03/2024 History of cholecystectomy 2022 History of colonoscopy 2011 History of cardiac catheterization Problem List clean-up per request of Phys. EHR [facility] H/O eye surgery right eye Problem List clean-up per request of Phys. EHR [facility] History of cataract surgery marybeth eye Problem List clean-up per request of Phys. EHR [facility] History of appendectomy Problem List clean-up per request of Phys. EHR [facility] History of tonsillectomy Problem List clean-up per request of Phys. EHR [facility] H/O foot surgery left Problem List clean-up per request of Phys. EHR [facility] History of hysterectomy Problem List clean-up per request of Phys. EHR [facility] Family History Father Heart & renal disease, hypertensive, with heart fail/chron kidney dis Depression Sister Heart disease Mother Brain tumor Father Mother Social History Smoking Status: Never smoker Substance Use Type: None Substance Abuse Comment: etoh occasional Social History Comments: independent living [facility] Medications and Allergies Allergies No Known Allergies Allergy (Verified 06/30/24 13:38) Home Medications rivaroxaban 15 mg tablet (Xarelto) 15 mg PO HS 12/05/21 [History Confirmed 06/30/24] calcium carbonate (Calcium 600) 600 mg PO DAILY 01/18/24 [History Confirmed 06/30/24] acetaminophen 325 mg capsule 325 mg PO Q6HR PRN fever or pain 04/01/24 [History Confirmed 06/30/24] atorvastatin 40 mg tablet 40 mg PO DAILY #100 tabs 04/01/24 [Rx Confirmed 06/30/24] cholecalciferol (vitamin D3) 50 mcg (2,000 unit) capsule 50 mcg PO DAILY 04/01/24 [History Confirmed 06/30/24] diltiazem HCl 180 mg capsule,extended release 24 hr 180 mg PO DAILY #30 caps 04/01/24 [Rx Confirmed 06/30/24] multivitamin 1 tab PO DAILY 04/01/24 [History Confirmed 06/30/24] magnesium oxide 400 mg PO DAILY 04/08/24 [History Confirmed 06/30/24] pantoprazole 40 mg tablet,delayed release 40 mg PO BID 30 days #60 tabs 04/18/24[Rx Confirmed 06/30/24] amiodarone 200 mg tablet 200 mg PO DAILY 05/08/24 [History Confirmed 06/30/24] digoxin 125 mcg (0.125 mg) tablet 125 mcg PO Q OTHER DAY 05/28/24 [History Confirmed 06/30/24] furosemide 20 mg tablet 20 mg PO DAILY #30 tabs 05/28/24 [Rx Confirmed 06/30/24] ropinirole 1 mg tablet See Rx Instructions .Route .COMPLEX #90 tabs 06/09/24 [Rx Confirmed 06/30/24] bupropion HCl 300 mg 24 hr tablet, extended release 300 mg PO QAM 06/30/24 [History Confirmed 06/30/24] Exam Physical Exam Vital Signs: Temp Pulse Resp BP Pulse Ox O2 Del Method 97.6 F 97 18 128/75 96 Room Air 07/01/24 11:30 07/01/24 11:30 07/01/24 11:30 07/01/24 11:30 07/01/24 11:30 07/01/24 11:30 Const General: cooperative, well developed and in distress mild and respiratory Nutritional Appearance: average body habitus Orientation: alert, awake and oriented x3 HEENT Head: normal to inspection Neck Neck: normal visual inspection Chest Chest palpation & inspection: normal inspection of the chest Resp Effort & Inspection: normal respiratory effort Auscultation: clear to auscultation bilaterally Cardio Rate: regular rate Rhythm: abnormal rhythm Heart Sounds: S1 normal and S2 normal Bruits: no carotid bruits Pulses: radial pulses present GI Palpation: soft Skin General: no rashes or lesions noted Neuro General: patient alert, patient awake and patient oriented x3 Cognition: normal cognition Speech: speech normal Extrem General: no clubbing, cyanosis or edema Psych Mood: anxious mood Results - Cardiology Labs 07/01/24 06:40 07/01/24 06:40 Lab results: Cardiac Enzymes 06/30/24 Range/Units 15:04 AST 36 (13-39) U/L Total Creatine Kinase 43 (30-223) U/L B-Natriuretic Peptide 84.0 (5-100) pg/mL CBC 06/30/24 07/01/24 Range/Units 15:04 06:40 RBC 4.56 3.90 (3.60-5.00) X10E6/uL Hgb 14.3 12.4 (11.8-15.4) g/dL Hct 42.3 37.0 (34.0-46.4) % Plt Count 259 231 (150-450) x10E3/uL Neut # (Auto) 8.1 H 4.8 (1.8-7.7) x10E3/uL Lymph # (Auto) 1.4 1.4 (1.00-4.8) x10E3/uL [place] # (Auto) 0.6 0.5 (0.0-0.8) x10E3/uL Eos # (Auto) 0.2 0.2 (0.0-0.45) x10E3/uL Baso # (Auto) 0.1 0.1 (0.0-0.2) x10E3/uL Comprehensive Metabolic Panel 06/30/24 07/01/24 Range/Units 15:04 06:40 Sodium 140 140 (136-145) mmol/L Potassium 3.5 4.1 (3.5-5.1) mmol/L Chloride 99 105 (98-107) mmol/L Carbon Dioxide 27.6 26.1 (21.0-31.0) mmol/L BUN 25 24 (7-25) mg/dL Creatinine 1.28 H 1.12 (0.60-1.20) mg/dL Glucose 116 H 87 (70-100) mg/dL Calcium 9.2 8.2 L (8.6-10.3) mg/dL AST 36 (13-39) U/L ALT 31 (7-52) U/L Alkaline Phosphatase 66 (34-104) U/L Total Protein 6.7 (6.4-8.9) gm/dL Albumin 4.3 (3.5-5.7) gm/dL Intake and Output 06/30/24 07/01/24 07/01/24 23:59 07:59 15:59 Intake Total 250 / 250 Balance 250 / 250 Intake: Oral 250 / 250 Other: # Unmeasured Voids 4 # Bowel Movements 0 Weight 63.5 kg 65 kg Date of Last Bowel Movement 06/30/24 06/30/24 Patient Weight 07/01/24 23:59 Weight 65 kg Lab 06/30/24 15:04 PT 16.9 H INR 1.5 APTT 30.9 EKG Interpretations EKG EKG shows: atrial fibrillation A&P - Cardiology (1) Elevated troponin: Code(s): R79.89 - Other specified abnormal findings of blood chemistry (2) High risk medication use: Code(s): Z79.899 - Other terminologist (current) drug therapy (3) Chronic heart failure with preserved ejection fraction (HFpEF): Code(s): I50.32 - Chronic diastolic (congestive) heart failure (4) Paroxysmal atrial fibrillation: Code(s): I48.0 - Paroxysmal atrial fibrillation Plan Escalate amiodarone to 400 daily Proceed with elective cardioversion tomorrow No evidence of chest pain (mild coronary disease on March 2024 heart catheterization), with normal LV function Documented By: Javed Dee DO 07/01/24 1138 Signed By: <Electronically signed by Jaevd Dee DO> 07/01/24 1151 [facility] Work Phone: 1(308) 769-388811-12-2024 [place] [address] Cardiology Consult Note Signed Patient: Austin Golden MR#: [id number] : 1940 Acct:[id number] Age/Sex: 83 / F Adm Date: 4 Loc: 3T Room: [address] [place] [address] Type: ADM IN Attending Dr: Shilpa Fenton MD Copies to: DO Shilpa Carias MD W Scott Sheldon, DO~ Cardiology HPI History of Present Illness Consult Date: 07/01/24 Reason for Consult: Exertional dyspnea, anxiety, HFpEF, paroxysmal A-fib HPI: Ms. Golden is a 83 year old female seen in cardiology consultation request the hospitalist in patient who presents with recurrent exertional dyspnea. She declines chest discomfort to me. Troponins are mildly elevated, initially at 101 and 85, and currently 92 (notably, she has chronic troponin elevation upon review of her EMR). Renal function is normal. Patient had recent heart catheterization performed earlier this year at [facility] revealing mild coronary disease and normal left ventricular function She has a history of heart failure with preserved ejection fraction, EF historically 55+ percent She has a history of paroxysmal atrial fibrillation, pacemaker, obstructive sleep apnea. She is very anxious in general, and his high anxiety presently in regards to her son's cancer diagnosis. She does not sleep well, spends most of the night up worrying about multiple things. Chest x-ray is clear with mild cardiomegaly and evidence of pacemaker, BNP is normal at 84, ECG reveals ventricular paced rhythm with underlying A-fib January of this past year she was admitted for pulmonary edema, atrial fibrillationwith RVR underwent successful cardioversion and diuresis. It appears that her atrial fibrillation (diastolic dysfunction) is recurrent, likely causative for her shortness of breath Recommendations: Escalate amiodarone to 400 daily, and repeat cardioversion REPLACED BY [facility] Medical History (Updated 07/01/24 @ 11:49 by Javed Dee DO) Dyspnea on exertion Problem List clean-up per request of Phys. EHR Cmte Anxiety High risk medication use Esophageal dysmotility Chronic venous insufficiency of lower extremity Dyspepsia Vomiting Acute on chronic heart failure with preserved ejection fraction (HFpEF) GERD (gastroesophageal reflux disease) Chronic heart failure with preserved ejection fraction (HFpEF) Echo: LVEF 55%, VALERIE, RVSP 21, normal RV size/function - 01/2024 Sick sinus syndrome Fibromyalgia Stage 3a chronic [...] List clean-up per request of Phys. EHR [facility] Surgical History History of repair of hiatal hernia (~2014) History of left heart catheterization (~03/2024) LHC: LAD 40-50%, diagonal 70%, RCA 40-50%, normal LVEF - 03/2024 History of cholecystectomy 2022 History of colonoscopy 2011 History of cardiac catheterization Problem List clean-up per request of Phys. EHR [facility] H/O eye surgery right eye Problem List clean-up per request of Phys. EHR Cmte History of cataract surgery marybeth eye Problem List clean-up per request of Phys. EHR [facility] History of appendectomy Problem List clean-up per request of Phys. EHR [facility] History of tonsillectomy Problem List clean-up per request of Phys. EHR Cmte H/O foot surgery left Problem List clean-up per request of Phys. EHR Cmte History of hysterectomy Problem List clean-up per request of Phys. EHR [facility] Family History Father Heart & renal disease, hypertensive, with heart fail/chron kidney dis Depression Sister Heart disease Mother Brain tumor Father Mother Social History Smoking Status: Never smoker Substance Use Type: None Substance Abuse Comment: etoh occasional Social History Comments: independent living [facility] Medications and Allergies Allergies No Known Allergies Allergy (Verified 06/30/24 13:38) Home Medications rivaroxaban 15 mg tablet (Xarelto) 15 mg PO HS 12/05/21 [History Confirmed 06/30/24] calcium carbonate (Calcium 600) 600 mg PO DAILY 01/18/24 [History Confirmed 06/30/24] acetaminophen 325 mg capsule 325 mg PO Q6HR PRN fever or pain 04/01/24 [History Confirmed 06/30/24] atorvastatin 40 mg tablet 40 mg PO DAILY #100 tabs 04/01/24 [Rx Confirmed 06/30/24] cholecalciferol (vitamin D3) 50 mcg (2,000 unit) capsule 50 mcg PO DAILY 04/01/24 [History Confirmed 06/30/24] diltiazem HCl 180 mg capsule,extended release 24 hr 180 mg PO DAILY #30 caps 04/01/24 [Rx Fetfjpqcb51/11/24] multivitamin 1 tab PO DAILY 04/01/24 [History Confirmed 06/30/24] magnesium oxide 400 mg PO DAILY 04/08/24 [History Confirmed 06/30/24] pantoprazole 40 mg tablet,delayed release 40 mg PO BID 30 days #60 tabs 04/18/24[Rx Confirmed 06/30/24] amiodarone 200 mg tablet 200 mg PO DAILY 05/08/24 [History Confirmed 06/30/24] digoxin 125 mcg (0.125 mg) tablet 125 mcg PO Q OTHER DAY 05/28/24 [History Confirmed 06/30/24] furosemide 20 mg tablet 20 mg PO DAILY #30 tabs 05/28/24 [Rx Confirmed 06/30/24] ropinirole 1 mg tablet See Rx Instructions .Route .COMPLEX #90 tabs 06/09/24 [Rx Confirmed 06/30/24] bupropion HCl 300 mg 24 hr tablet, extended release 300 mg PO QAM 06/30/24 [History Confirmed 06/30/24] Exam Physical Exam Vital Signs: Temp Pulse Resp BP Pulse Ox O2 Del Method 97.6 F 97 18 128/75 96 Room Air 07/01/24 11:30 07/01/24 11:30 07/01/24 11:30 07/01/24 11:30 07/01/24 11:30 07/01/24 11:30 Const General: cooperative, well developed and in distress mild and respiratory Nutritional Appearance: average body habitus Orientation: alert, awake and oriented x3 HEENT Head: normal to inspection Neck Neck: normal visual inspection Chest Chest palpation & inspection: normal inspection of the chest Resp Effort & Inspection: normal respiratory effort Auscultation: clear to auscultation bilaterally Cardio Rate: regular rate Rhythm: abnormal rhythm Heart Sounds: S1 normal and S2 normal Bruits: no carotid bruits Pulses: radial pulses present GI Palpation: soft Skin General: no rashes or lesions noted Neuro General: patient alert, patient awake and patient oriented x3 Cognition: normal cognition Speech: speech normal Extrem General: no clubbing, cyanosis or edema Psych Mood: anxious mood Results - Cardiology Labs 07/01/24 06:40 07/01/24 06:40 Lab results: Cardiac Enzymes 06/30/24 Range/Units 15:04 AST 36 (13-39) U/L Total Creatine Kinase 43 (30-223) U/L B-Natriuretic Peptide 84.0 (5-100) pg/mL CBC 06/30/24 07/01/24 Range/Units 15:04 06:40 RBC 4.56 3.90 (3.60-5.00) X10E6/uL Hgb 14.3 12.4 (11.8-15.4) g/dL Hct 42.3 37.0 (34.0-46.4) % Plt Count 259 231 (150-450) x10E3/uL Neut # (Auto) 8.1 H 4.8 (1.8-7.7) x10E3/uL Lymph # (Auto) 1.4 1.4 (1.00-4.8) x10E3/uL [place] # (Auto) 0.6 0.5 (0.0-0.8) x10E3/uL Eos # (Auto) 0.2 0.2 (0.0-0.45) x10E3/uL Baso # (Auto) 0.1 0.1 (0.0-0.2) x10E3/uL Comprehensive Metabolic Panel 06/30/24 07/01/24 Range/Units 15:04 06:40 Sodium 140 140 (136-145) mmol/L Potassium 3.5 4.1 (3.5-5.1) mmol/L Chloride 99 105 (98-107) mmol/L Carbon Dioxide 27.6 26.1 (21.0-31.0) mmol/L BUN 25 24 (7-25) mg/dL Creatinine 1.28 H 1.12 (0.60-1.20) mg/dL Glucose 116 H 87 (70-100) mg/dL Calcium 9.2 8.2 L (8.6-10.3) mg/dL AST 36 (13-39) U/L ALT 31 (7-52) U/L Alkaline Phosphatase 66 (34-104) U/L Total Protein 6.7 (6.4-8.9) gm/dL Albumin 4.3 (3.5-5.7) gm/dL Intake and Output 06/30/24 07/01/24 07/01/24 23:59 07:59 15:59 Intake Total 250 / 250 Balance 250 / 250 Intake: Oral 250 / 250 Other: # Unmeasured Voids 4 # Bowel Movements 0 Weight 63.5 kg 65 kg Date of Last Bowel Movement 06/30/24 06/30/24 Patient Weight 07/01/24 23:59 Weight 65 kg Lab 06/30/24 15:04 PT 16.9 H INR 1.5 APTT 30.9 EKG Interpretations EKG EKG shows: atrial fibrillation A&P - Cardiology (1) Elevated troponin: Code(s): R79.89 - Other specified abnormal findings of blood chemistry (2) High risk medication use: Code(s): Z79.899 - Other terminologist (current) drug therapy (3) Chronic heart failure with preserved ejection fraction (HFpEF): Code(s): I50.32 - Chronic diastolic (congestive) heart failure (4) Paroxysmal atrial fibrillation: Code(s): I48.0 - Paroxysmal atrial fibrillation Plan Escalate amiodarone to 400 daily Proceed with elective cardioversion tomorrow No evidence of chest pain (mild coronary disease on March 2024 heart catheterization), with normalLV function Documented By: Javed Dee DO 07/01/24 1138 Signed By: 07/01/24 1150 [facility]11-11-2024 History and physical note Author Shilpa Fenton [facility] Note Date/Time June 30, 2024 7:23pm [facility] [address] [place] [address] Hospitalist H&P Signed Patient: Austin Golden MR#: [id number] : 1940 Acct:[id number] Age/Sex: 83 / F Adm Date: 4 Loc: 3T Room: [address] [place] [address] Type: ADM IN Attending Dr: Shilpa Fenton MD Copies to: DO Shilpa Carias MD~ HPI DATE OF EXAMINATION: 06/30/24 CHIEF COMPLAINT: Shortness of breath HISTORY OF PRESENT ILLNESS: 83 years old female presented with complaint of shortness of breath. Patient does have underlying coronary artery disease and in December 2022 she underwent cardiac catheterization at that time showed one-vessel coronary artery disease not amenable for intervention with recommendation to continue with medical therapy. She was also found to have atrial fibrillation for which she takes Xarelto and has pacemaker. She does have chronic shortness of breath however during the last couple of daysit got worse. She denies any fever any chills any cough and sore throat. She denied any chest pain to me. She just complains of shortness of breath especially with exertion. I did see emergency room, show saturating 95% that she still complains of some shortness of breath. She denies any lower extremityswelling. She denies any history of DVT or PE. Her last echocardiogram showed preserved ejection fraction 55 to 60%. EKG was done which showed atrial fibrillation with what it looks aberrancy 10 systems are reviewed and are negative apart as mentioned H&P General -patient is awake alert oriented ?3, does not appear to be in distress HEENT -normal oropharyngeal mucosa without any ulcers or exudates Cardiovascular -S1 plus S2, with regular rate, without any murmurs, gallops, rubs Pulmonary -clear to auscultation bilaterally Gastrointestinal -abdomen is soft, nondistended, nontender, bowel sounds positive, no rigidity, no rebound Genitourinary deferred Musculoskeletal -no back tenderness, no significant joint swelling, full range of motion Neurological -no focal Skin -no significant ulcers, no rash noted Extremities - no edema in bilateral lower extremities noted Psychiatry - appropriate affect Laboratory work up, imaging studies reviewed EKG personally reviewed by me as mentioned above Previous records in the computer system reviewed REPLACED BY [facility] Medical History Anxiety High risk medication use Esophageal dysmotility Chronic venous insufficiency of lower extremity Dyspepsia Vomiting Acute on chronic heart failure with preserved ejection fraction (HFpEF) GERD (gastroesophageal reflux disease) Chronic heart failure with preserved ejection fraction (HFpEF) Echo: LVEF 55%, VALERIE, RVSP 21, normal RV size/function - 01/2024 Sick sinus syndrome Fibromyalgia Stage 3a chronic [...] List clean-up per request of Phys. [facility] History History of repair of hiatal hernia (~2014) History of left heart catheterization (~03/2024) LHC: LAD 40-50%, diagonal 70%, RCA 40-50%, normal LVEF - 03/2024 History of cholecystectomy 2022 History of colonoscopy [...] Social History Comments: independent living at the [facility] Medications and Allergies Allergies No Known Allergies Allergy (Verified 06/30/24 13:38) Home Medications rivaroxaban 15 mg tablet (Xarelto) 15 mg PO HS 12/05/21 [History Confirmed 06/30/24] calcium carbonate (Calcium 600) 600 mg PO DAILY 01/18/24 [History Confirmed 06/30/24] acetaminophen 325 mg capsule 325 mg PO Q6HR PRN fever or pain 04/01/24 [History Confirmed 06/30/24] atorvastatin 40 mg tablet 40 mg PO DAILY #100 tabs 04/01/24 [Rx Confirmed 06/30/24] cholecalciferol (vitamin D3) 50 mcg (2,000 unit) capsule 50 mcg PO DAILY 04/01/24 [History Confirmed 06/30/24] diltiazem HCl 180 mg capsule,extended release 24 hr 180 mg PO DAILY #30 caps 04/01/24 [Rx Confirmed 06/30/24] multivitamin 1 tab PO DAILY 04/01/24 [History Confirmed 06/30/24] magnesium oxide 400 mg PO DAILY 04/08/24 [History Confirmed 06/30/24] pantoprazole 40 mg tablet,delayed release 40 mg PO BID 30 days #60 tabs 04/18/24[Rx Confirmed 06/30/24] amiodarone 200 mg tablet 200 mg PO DAILY 05/08/24 [History Confirmed 06/30/24] digoxin 125 mcg (0.125 mg) tablet 125 mcg PO Q OTHER DAY 05/28/24 [History Confirmed 06/30/24] furosemide 20 mg tablet 20 mg PO DAILY #30 tabs 05/28/24 [Rx Confirmed 06/30/24] ropinirole 1 mg tablet See Rx Instructions .Route .COMPLEX #90 tabs 06/09/24 [Rx Confirmed 06/30/24] bupropion HCl 300 mg 24 hr tablet, extended release 300 mg PO QAM 06/30/24 [History Confirmed 06/30/24] Exam Physical Exam Vital Signs: Temp Pulse Resp BP Pulse Ox O2 Del Method 36.6 C 86 20 132/67 94 L Room Air 06/30/24 13:38 06/30/24 16:10 06/30/24 16:10 06/30/24 16:10 06/30/24 16:10 06/30/24 16:10 Results - Hospitalist H&P Lab Results Labs: Laboratory Last Values Corrected WBC 10.4 X10E3/uL (3.8-11.6) 06/30/24 15:04 Uncorrected WBC Count 10.4 x10E3/uL (3.8-11.6) 06/30/24 15:04 RBC 4.56 X10E6/uL (3.60-5.00) 06/30/24 15:04 Hgb 14.3 g/dL (11.8-15.4) 06/30/24 15:04 Hct 42.3 % (34.0-46.4) 06/30/24 15:04 MCV 92.7 fl (80-100) 06/30/24 15:04 MCH 31.4 pg (24.7-34.3) 06/30/24 15:04 MCHC 33.9 g/dL (32.0-35.0) 06/30/24 15:04 RDW 14.0 % (11.9-15.3) 06/30/24 15:04 Plt Count 259 x10E3/uL (150-450) 06/30/24 15:04 MPV 8.5 fl (6.3-10.7) 06/30/24 15:04 Neut % (Auto) 77.8 % (.) 06/30/24 15:04 Lymph % (Auto) 14.0 % (.) 06/30/24 15:04 [place] % (Auto) 5.9 % (.) 06/30/24 15:04 Eos % (Auto) 1.5 % (.) 06/30/24 15:04 Baso % (Auto) 0.8 % (.) 06/30/24 15:04 Nucleat RBC Rel Count 0.1 /100 WBC (0-0.5) 06/30/24 15:04 Neut # (Auto) 8.1 x10E3/uL (1.8-7.7) H 06/30/24 15:04 Lymph # (Auto) 1.4 x10E3/uL (1.00-4.8) 06/30/24 15:04 [place] # (Auto) 0.6 x10E3/uL (0.0-0.8) 06/30/24 15:04 Eos # (Auto) 0.2 x10E3/uL (0.0-0.45) 06/30/24 15:04 Baso # (Auto) 0.1 x10E3/uL (0.0-0.2) 06/30/24 15:04 Monocyte Dist Width 19.87 % (0.00-20.00) 06/30/24 15:04 PT 16.9 Seconds (9.0-12.9) H 06/30/24 15:04 INR 1.5 06/30/24 15:04 APTT 30.9 Seconds (25.1-36.5) 06/30/24 15:04 PHA Creatinine Clear 28.68 06/30/24 15:04 Sodium 140 mmol/L (136-145) 06/30/24 15:04 Potassium 3.5 mmol/L (3.5-5.1) 06/30/24 15:04 Chloride 99 mmol/L (98-107) 06/30/24 15:04 Carbon Dioxide 27.6 mmol/L (21.0-31.0) 06/30/24 15:04 Anion Gap 16.9 mEq/L (6.0-15.0) H 06/30/24 15:04 BUN 25 mg/dL (7-25) 06/30/24 15:04 Creatinine 1.28 mg/dL (0.60-1.20) H 06/30/24 15:04 Est GFR (CKD-EPI) 42.087 mL/Min 06/30/24 15:04 Glucose 116 mg/dL (70-100) H 06/30/24 15:04 Calcium 9.2 mg/dL (8.6-10.3) 06/30/24 15:04 Total Bilirubin 0.9 mg/dl (0.3-1.0) 06/30/24 15:04 AST 36 U/L (13-39) 06/30/24 15:04 ALT 31 U/L (7-52) 06/30/24 15:04 Alkaline Phosphatase 66 U/L (34-104) 06/30/24 15:04 Total Creatine Kinase 43 U/L (30-223) 06/30/24 15:04 Troponin I High Sens 101.6 pg/mL (0.0-15.0) H* 06/30/24 15:04 B-Natriuretic Peptide 84.0 pg/mL (5-100) 06/30/24 15:04 Total Protein 6.7 gm/dL (6.4-8.9) 06/30/24 15:04 Albumin 4.3 gm/dL (3.5-5.7) 06/30/24 15:04 Globulin 2.4 gm/dL 06/30/24 15:04 Albumin/Globulin Ratio 1.8 06/30/24 15:04 Digoxin 1.7 ng/mL (0.9-2.0) 06/30/24 15:04 Assessment & Plan Assessment/Plan (1) Elevated troponin: Plan 1. Shortness of breath, of unclear etiology, patient does not like to be in congestive heart failure, unlikely PE as the patient is already anticoagulated, rule out acute coronary syndrome Troponins elevated, EKG nonischemic, denies any chest pain, continue with telemetry serial cardiac enzymes cardiology consult Interrogate pacemaker 2. Atrial fibrillation, patient takes amiodarone, she is in atrial fibrillation, I will consult cardiology, continue with digoxin, levels okay 3. Chronic kidney disease stage III, creatinine stable IP vs OBS Justification Based on differential dx, clinical care plan, and risk of adverse events, if untreated, in my clinical judgement this patient requires an acute care setting as: INPATIENT because of an expectation of an over 2 midnight stay. Estimated length of stay (# of days): 3 Documented By: Shilpa Fenton MD 06/30/24 183 Signed By: <Electronically signed by Shilpa Fenton MD> 06/30/241922 [facility] Work Phone: 1(799) 560-187011-11-2024 Evaluation note* Diagnosis Onset Date Resolution Status Admit Date Acute electrocardiogram changes reso lved June 30, 2024 5:45pm Chest pain resolved June 30, 2024 5:45pm Chronic heart failure with preserved ejection fraction (HFpEF) resolved June 30 024 5:45pm Elevated troponin resolved Novembe r 2023 5:45pm High risk medication use resolved June 30, 2024 5:45pm Paroxysmal atrial fibrillation resol phil June 30, 2024 5:45pm GERD (gastroesophageal reflu x disease) acute July 09 024 2:54pm Primary hypertension acute Nove mb2023 2:54pm Stage 3a chronic kidney disease acut e July 09, 2024 2:54pm Chronic heart failure with preserved ejection fraction (HFpEF) resolved July 09 024 2:54pm Paroxysmal atrial fibrillation resol phil July 09, 2024 2:54pm Esophageal obstruction inactive No vember 2023 2:54pm Acute kidney injury inactive Decem 2023 9:28pm Atrial fibrillation with rap id ventricular response inactive July 9:28pm Atypical chest pain inactive Decem kateryna 2023 9:28pm Dysphagia inactive July 21, 2024 9:28pm Elevated troponin inactive Decembe r 2023 9:28pm Esophageal obstruction inactive De 2023 9:28pm GERD (gastroesophageal reflu x disease) acute July 31 11:23am Primary hypertension acute Dece mb2023 11:23am Stage 3a chronic kidney disease acut e July 31, 2024 11:23am Chronic heart failure with preserved ejection fraction (HFpEF) resolved July 31 11:23am Paroxysmal atrial fibrillation resol phil July 31, 2024 11:23am Esophageal obstruction inactive De cember 2023 11:23am Abrasion of elbow, left acute J anuary 2024 2:04pm Abrasion of knee, left, infected acu te August 27, 2024 2:04pm Chest wall contusion acute Gonzalez abdoul 2024 2:04pm [facility] Work Phone: 1(268) 784-611711-11-2024 Evaluation note* Diagnosis Onset Date Resolution Status Admit Date Acute electrocardiogram changes reso lved June 30, 2024 5:45pm Chest pain resolved June 30, 2024 5:45pm Chronic heart failure with preserved ejection fraction (HFpEF) resolved June 30, 2 024 5:45pm Elevated troponin resolved Novembe r 2023 5:45pm High risk medication use resolved June 30, 2024 5:45pm Paroxysmal atrial fibrillation resol phil June 30, 2024 5:45pm GERD (gastroesophageal reflu x disease) acute July 09, 2 024 2:54pm Primary hypertension acute Nove mber 2023 2:54pm Chronic heart failure with preserved ejection fraction (HFpEF) resolved July 09 2 024 2:54pm Paroxysmal atrial fibrillation resol phil July 09, 2024 2:54pm Esophageal obstruction inactive No vember 2023 2:54pm Stage 3a chronic kidney disease steven anne marie July 09, 2024 2:54pm Acute kidney injury inactive Decem 2023 9:28pm Atrial fibrillation with rap id ventricular response inactive July 9:28pm Atypical chest pain inactive Decem 2023 9:28pm Dysphagia inactive July 21, 2024 9:28pm Elevated troponin inactive Decembe r 2023 9:28pm Esophageal obstruction inactive 2023 9:28pm GERD (gastroesophageal reflu x disease) acute July 31 2 024 11:23am Primary hypertension acute Dece mb2023 11:23am Chronic heart failure with preserved ejection fraction (HFpEF) resolved July 31 024 11:23am Paroxysmal atrial fibrillation resol phil July 31, 2024 11:23am Esophageal obstruction inactive De cem2023 11:23am Stage 3a chronic kidney disease steven anne marie July 31, 2024 11:23am Abrasion of elbow, left acute J anuary 2024 2:04pm Abrasion of knee, left, infected acu te August 27, 2024 2:04pm Chest wall contusion acute Gonzalez abdoul 2024 2:04pm Acute on chronic heart failu re with preserved ejection fraction (HFpEF) acute September 09 3:04pm ASHD (arteriosclerotic heart disease) acute September 09 3:04pm Atrial fibrillation acute Janua ry 2024 3:04pm Chest wall contusion acute Gonzalez abdoul 2024 3:04pm Chronic kidney disease acute Ja nuary 2024 3:04pm Dysphagia acute September 09, 2024 3:04pm Primary hypertension acute Gonzalez abdoul 2024 3:04pm Rectal bleeding acute August 212024 3:04pm [facility] Work Phone: 1(559) 846-958411-11-2024 History and physical [address] [address] Hospitalist H&P Signed Patient: Austin Golden MR#: [id number] : 1940 Acct:[id number] Age/Sex: 83 / F Adm Date: 4 Loc: Room: [address] [place] [address] Type: ADM IN Attending Dr: Shilpa Fenton MD Copies to: DO Shilpa Carias MD~ HPI DATE OF EXAMINATION: 06/30/24 CHIEF COMPLAINT: Shortness of breath HISTORY OF PRESENT ILLNESS: 83 years old female presented with complaint of shortness of breath. Patient does have underlying coronary artery disease and in December 2022 she underwent cardiac catheterization at that time showed one-vessel coronary artery disease not amenable for intervention with recommendation to continue with medical therapy. She was also found to have atrial fibrillation for which she takes Xarelto and has pacemaker. She does have chronic shortness of breath however during the last couple of daysit got worse. She denies any fever any chills any cough and sore throat. She denied any chest pain to me. She just complains of shortness of breath especially with exertion. I did see emergency room, show saturating 95%that she still complains of some shortness of breath. She denies any lower extremityswelling. She denies any history of DVT or PE. Her last echocardiogram showed preserved ejection fraction 55 to 60%. EKG was done which showed atrial fibrillation with what it looks aberrancy 10 systems are reviewed and are negative apart as mentioned H&P General -patient is awake alert oriented ?3, does not appear to be in distress HEENT -normal oropharyngeal mucosa without any ulcers or exudates Cardiovascular -S1 plus S2, with regular rate, without any murmurs, gallops, rubs Pulmonary -clear to auscultation bilaterally Gastrointestinal -abdomen is soft, nondistended, nontender, bowel sounds positive, no rigidity, no rebound Genitourinary deferred Musculoskeletal -no back tenderness, no significant joint swelling, full range of motion Neurological -no focal Skin -no significant ulcers, no rash noted Extremities - no edema in bilateral lower extremities noted Psychiatry - appropriate affect Laboratory work up, imaging studies reviewed EKG personally reviewed by me as mentioned above Previous records in the computer system reviewed REPLACED BY [facility] Medical History Anxiety High risk medication use Esophageal dysmotility Chronic venous insufficiency of lower extremity Dyspepsia Vomiting Acute on chronic heart failure with preserved ejection fraction (HFpEF) GERD (gastroesophageal reflux disease) Chronic heart failure with preserved ejection fraction (HFpEF) Echo: LVEF 55%, VALERIE, RVSP 21, normal RV size/function - 01/2024 Sick sinus syndrome Fibromyalgia Stage 3a chronic kidney disease Pulmonary nodule CT: no nodules detected - 10/2022 Primary hypertension Paroxysmal atrial fibrillation Osteopenia of lumbar spine Obstructive sleep apnea Mild episode of recurrent major depressive disorder Lumbar spondylosis Large hiatal hernia Hypercholesterolemia History of esophageal stricture Cirrhosis Bladder incontinence Normal esophagogastroduodenoscopy (EGD) Hernia Depression Problem List clean-up per request of Phys. [facility]HR [facility] Fibromyalgia Problem List clean-up per request of Phys. EHR [facility] Arthritis back and neck Problem List clean-up per request of Phys. EHR C[facility] Hypertension Problem List clean-up per request of Phys. EHR [facility] History of cardiac pacemaker in situ Presbyesophagus Hiatal hernia Restless leg Hyperlipemia Problem List clean-up per request of Phys. EHR Cmte CHF (congestive heart failure) Problem List clean-up per request of Phys. EHR [facility] Kidney stones removal of kidney stone R flank in 2021 Problem List clean-up per request of Phys. EHR [facility] Pacemaker Problem List clean-up per request of Phys. EHR Cmte Atrial fibrillation, persistent Problem List clean-up per request of Phys. EHR [facility] COVID-19 2019 Problem List clean-up per request of Phys. EHR [facility] Atrial fibrillation with RVR Problem List clean-up per request of Phys. EHR [facility] Hernia of abdominal wall Problem List clean-up per request of Phys. EHR [facility] Surgical History History of repair of hiatal hernia (~2014) History of left heart catheterization (~03/2024) LHC: LAD 40-50%, diagonal 70%, RCA 40-50%, normal LVEF - 03/2024 History of cholecystectomy 2022 History of colonoscopy [...] Social History Comments: independent living at the [facility] Medications and Allergies Allergies No Known Allergies Allergy (Verified 06/30/24 13:38) Home Medications rivaroxaban 15 mg tablet (Xarelto) 15 mg PO HS 12/05/21 [History Confirmed 06/30/24] calcium carbonate (Calcium 600) 600 mg PO DAILY 01/18/24 [History Confirmed 06/30/24] acetaminophen 325 mg capsule 325 mg PO Q6HR PRN fever or pain 04/01/24 [History Confirmed 06/30/24] atorvastatin 40 mg tablet 40 mg PO DAILY #100 tabs 04/01/24 [Rx Confirmed 06/30/24] cholecalciferol (vitamin D3) 50 mcg (2,000 unit) capsule 50 mcg PO DAILY 04/01/24 [History Confirmed 06/30/24] diltiazem HCl 180 mg capsule,extended release 24 hr 180 mg PO DAILY #30 caps 04/01/24 [Rx Rdxpacymd41/11/24] multivitamin 1 tab PO DAILY 04/01/24 [History Confirmed 06/30/24] magnesium oxide 400 mg PO DAILY 04/08/24 [History Confirmed 06/30/24] pantoprazole 40 mg tablet,delayed release 40 mg PO BID 30 days #60 tabs 04/18/24[Rx Confirmed 06/30/24] amiodarone 200 mg tablet 200 mg PO DAILY 05/08/24 [History Confirmed 06/30/24] digoxin 125 mcg (0.125 mg) tablet 125 mcg PO Q OTHER DAY 05/28/24 [History Confirmed 06/30/24] furosemide 20 mg tablet 20 mg PO DAILY #30 tabs 05/28/24 [Rx Confirmed 06/30/24] ropinirole 1 mg tablet See Rx Instructions .Route .COMPLEX #90 tabs 06/09/24 [Rx Confirmed 06/30/24] bupropion HCl 300 mg 24 hr tablet, extended release 300 mg PO QAM 06/30/24 [History Confirmed 06/30/24] Exam Physical Exam Vital Signs: Temp Pulse Resp BP Pulse Ox O2 Del Method 36.6 C 86 20 132/67 94 L Room Air 06/30/24 13:38 06/30/24 16:10 06/30/24 16:10 06/30/24 16:10 06/30/24 16:10 06/30/24 16:10 Results - Hospitalist H&P Lab Results Labs: Laboratory Last Values Corrected WBC 10.4 X10E3/uL (3.8-11.6) 06/30/24 15:04 Uncorrected WBC Count 10.4 x10E3/uL (3.8-11.6) 06/30/24 15:04 RBC 4.56 X10E6/uL (3.60-5.00) 06/30/24 15:04 Hgb 14.3 g/dL (11.8-15.4) 06/30/24 15:04 Hct 42.3 % (34.0-46.4) 06/30/24 15:04 MCV 92.7 fl (80-100) 06/30/24 15:04 MCH 31.4 pg (24.7-34.3) 06/30/24 15:04 MCHC 33.9 g/dL (32.0-35.0) 06/30/24 15:04 RDW 14.0 % (11.9-15.3) 06/30/24 15:04 Plt Count 259 x10E3/uL (150-450) 06/30/24 15:04 MPV 8.5 fl (6.3-10.7) 06/30/24 15:04 Neut % (Auto) 77.8 % (.) 06/30/24 15:04 Lymph % (Auto) 14.0 % (.) 06/30/24 15:04 [place] % (Auto) 5.9 % (.) 06/30/24 15:04 Eos % (Auto) 1.5 % (.) 06/30/24 15:04 Baso % (Auto) 0.8 % (.) 06/30/24 15:04 Nucleat RBC Rel Count 0.1 /100 WBC (0-0.5) 06/30/24 15:04 Neut # (Auto) 8.1 x10E3/uL (1.8-7.7) H 06/30/24 15:04 Lymph # (Auto) 1.4 x10E3/uL (1.00-4.8) 06/30/24 15:04 [place] # (Auto) 0.6 x10E3/uL (0.0-0.8) 06/30/24 15:04 Eos # (Auto) 0.2 x10E3/uL (0.0-0.45) 06/30/24 15:04 Baso # (Auto) 0.1 x10E3/uL (0.0-0.2) 06/30/24 15:04 Monocyte Dist Width 19.87 % (0.00-20.00) 06/30/24 15:04 PT 16.9 Seconds (9.0-12.9) H 06/30/24 15:04 INR 1.5 06/30/24 15:04 APTT 30.9 Seconds (25.1-36.5) 06/30/24 15:04 PHA Creatinine Clear 28.68 06/30/24 15:04 Sodium 140 mmol/L (136-145) 06/30/24 15:04 Potassium 3.5 mmol/L (3.5-5.1) 06/30/24 15:04 Chloride 99 mmol/L (98-107) 06/30/24 15:04 Carbon Dioxide 27.6 mmol/L (21.0-31.0) 06/30/24 15:04 Anion Gap 16.9 mEq/L (6.0-15.0) H 06/30/24 15:04 BUN 25 mg/dL (7-25) 06/30/24 15:04 Creatinine 1.28 mg/dL (0.60-1.20) H 06/30/24 15:04 Est GFR (CKD-EPI) 42.087 mL/Min 06/30/24 15:04 Glucose 116 mg/dL (70-100) H 06/30/24 15:04 Calcium 9.2 mg/dL (8.6-10.3) 06/30/24 15:04 Total Bilirubin 0.9 mg/dl (0.3-1.0) 06/30/24 15:04 AST 36 U/L (13-39) 06/30/24 15:04 ALT 31 U/L (7-52) 06/30/24 15:04 Alkaline Phosphatase 66 U/L (34-104) 06/30/24 15:04 Total Creatine Kinase 43 U/L (30-223) 06/30/24 15:04 Troponin I High Sens 101.6 pg/mL (0.0-15.0) H* 06/30/24 15:04 B-Natriuretic Peptide 84.0 pg/mL (5-100) 06/30/24 15:04 Total Protein 6.7 gm/dL (6.4-8.9) 06/30/24 15:04 Albumin 4.3 gm/dL (3.5-5.7) 06/30/24 15:04 Globulin 2.4 gm/dL 06/30/24 15:04 Albumin/Globulin Ratio 1.8 06/30/24 15:04 Digoxin 1.7 ng/mL (0.9-2.0) 06/30/24 15:04 Assessment & Plan Assessment/Plan (1) Elevated troponin: Plan 1. Shortness of breath, of unclear etiology, patient does not like to be in congestive heart failure, unlikely PE as the patient is already anticoagulated, rule out acute coronary syndrome Troponins elevated, EKG nonischemic, denies any chest pain, continue with telemetry serial cardiac enzymes cardiology consult Interrogate pacemaker 2. Atrial fibrillation, patient takes amiodarone, she is in atrial fibrillation, I will consult cardiology, continue with digoxin, levels okay 3. Chronic kidney disease stage III, creatinine stable IP vs OBS Justification Based on differential dx, clinical care plan, and risk of adverse events, if untreated, in my clinical judgement this patient requires an acute care setting as: INPATIENT because of an expectation ofan over 2 midnight stay. Estimated length of stay (# of days): 3 Documented By: Shilpa Fenton MD 06/30/24 1833 Signed By: 06/30/241922 [facility]11-11-2024 Radiology Diagnostic study note [facility] [place] [address] [place] [id number] Scan Report Signed Patient: Austin Golden MR#: [id number] : 1940 Acct:[id number] Age/Sex: 83 / F ADM Date: 4 Loc: ER Room: Type: [facility] ER Attending Dr: Copies to: iVc Mendez PA-C~ Ordering Provider: Vic Mendez PA-C Date of Service: 06/30/24 CT/CT head/brain wo con: fall Unenhanced head CT TECHNIQUE: Contiguous axial imaging of the head. The CT exam was performed usingone or more the following dose reduction techniques: Automated exposure control,adjustment of the MA and/or Kv according to patient size, or use of the iterative reconstruction technique. COMPARISON: 09/01/22 HISTORY: Altered mental status. VENTRICLES: Within normal limits ATROPHY: Similar atrophy BRAIN PARENCHYMA: Decreased density of the white matter is most consistent withchronic small vesseldisease. Similar chronic RIGHT thalamic lacunar infarct. HEMORRHAGE: None HERNIATION: No mass effect or herniation INFARCTION: No recent vascular distribution infarction is seen. EXTRA-AXIAL FLUID COLLECTIONS None MIDBRAIN: Unremarkable RAMON: Unremarkable MEDULLA: Unremarkable SINUSES: Unremarkable ORBITS: Grossly unremarkable MASTOIDS: Unremarkable BONY STRUCTURES Intact ADDITIONAL FINDINGS: A similar meningioma at the convexity of the LEFT parietalregion measuring 12 mm. Atherosclerosis of carotid siphons and V4 segments CT/CT head/brain wo con IMPRESSION: No acute findings. Impression dictated by: Juanito Borja M.D.06/30/2024 3:47 PM Dictation Location: [place] [address] Transcribed By: [facility] 06/30/24 1547 Dictated By: Juanito Borja DO 06/30/24 1542 Signed By: 06/30/24 1547 [facility]11-04-2024 NoteCalled radiology ext [phone]. Requested soemone in the department to reach out to the patient to discuss what is expected prior to and in the procedure for timed barium esophogram. Staffing took the number and agreed to abhinav the patient.[facility] [place] [id number] Telephone encounter Note* Telephone Encounter - Isabel Menard RN - 06/23/2024 11:23 AM EST Called radiology ext [phone]. Requested soemone in the department to reach out to the patient to discuss what is expected prior to and in the procedure for timed barium esophogram. Staffing took the number and agreed to abhinav the patient. [id number] Miscellaneous Notes* Telephone Encounter - Isabel Menard RN - 06/23/2024 11:23 AM EST Called radiology ext [phone]. Requested soemone in the department to reach out to the patient to discuss what is expected prior to and in the procedure for timed barium esophogram. Staffing took the number and agreed to abhinav the patient. * Telephone Encounter - Cristiana Vieira - 06/23/2024 10:19 AM EST Pt has questions about her upcoming procedure 06/26/2024 Would like to discuss with provider Telephone Information: * Telephone Encounter - Cristiana Vieira - 06/13/2024 4:[address] العلي office calling waiting for order to be placed for timed barium esophagogram Jazmin العلي [address] [place] [phone] option #[address] العلي's nurse line Leela Encounter dated 05/29/[address] Yung Recommendations: Obtain timed barium esophagram or endoflip to confirm diagnosis. Dr Yung recommended pt has this procedure Telephone Information: * Telephone Encounter - Evelyn Tyler - 06/11/2024 12:26 PM EDT Dr. العلي's office call regarding results from patient's procedure on 05/29/24.. Dr. العلي states recommendations as follows: Obtain timed barium esophagram or endoflip to confirm diagnosis, would like order to be placed so that patient may have this done. Please call patient once order is placed to be scheduled. Thank you documented in this [id number] NotePt has questions about her upcoming procedure 06/26/2024 Would like to discuss with provider Telephone Information[facility] [id number] Telephone encounter Note* Telephone Encounter - Cristiana Vieira - 06/23/2024 10:19 AM EST Pt has questions about her upcoming procedure 06/26/2024 Would like to discuss with provider Telephone Information: [id number] Telephone encounter Note* Telephone Encounter - Cristiana Vieira - 06/13/2024 4:[address] العلي office calling waiting for order to be placed for timed barium esophagogram Jazmin العلي [address] [place] [address] option #[address] العلي's nurse line Leela Encounter dated 05/29/[address] Yung Recommendations: Obtain timed barium esophagram or endoflip to confirm diagnosis. Dr Yung recommended pt has this procedure Telephone Information: [id number] NoteDbola العلي's office call regarding results from patient's procedure on 05/29/24.. Dr. العلي states recommendations as follows: Obtain timed barium esophagram or endoflip to confirm diagnosis, would like order to be placed so that patient may have this done. Please call patient once order is placed to be scheduled. [facility] [id number] Telephone encounter Note* Telephone Encounter - Evelyn Tyler - 06/11/2024 12:[address] العلي's office call regarding results from patient's procedure on 05/29/24.. Dr. العلي states recommendations as follows: Obtain timed barium esophagram or endoflip to confirm diagnosis, would like order to be placed so that patient may have this done. Please call patient once order is placed to be scheduled. Thank you [id number] Evaluation note* Diagnosis Onset Date Resolution Status Admit Date Acute on chronic heart failu re with preserved ejection fraction (HFpEF) acute June 10 3:15pm Esophageal dysmotility acute Oc tober 2023 3:15pm GERD (gastroesophageal reflu x disease) acute June 10 3:15pm Primary hypertension acute Octo kateryna 2023 3:15pm Stage 3a chronic kidney disease acut e June 10, 2024 3:15pm Paroxysmal atrial fibrillation resol phil June 10, 2024 3:15pm Acute electrocardiogram changes reso lved June 30, 2024 5:45pm Chest pain resolved June 30, 2024 5:45pm Chronic heart failure with preserved ejection fraction (HFpEF) resolved June 30, 2 024 5:45pm Elevated troponin resolved Novembe r 2023 5:45pm High risk medication use resolved June 30, 2024 5:45pm Paroxysmal atrial fibrillation resol phil June 30, 2024 5:45pm GERD (gastroesophageal reflu x disease) acute July 09, 2 024 2:54pm Primary hypertension acute Nove mber 2023 2:54pm Stage 3a chronic kidney disease acut e July 09, 2024 2:54pm Chronic heart failure with preserved ejection fraction (HFpEF) resolved July 09, 2 024 2:54pm Paroxysmal atrial fibrillation resol phil July 09, 2024 2:54pm Esophageal obstruction inactive No [email or web address] 2:54pm Acute kidney injury inactive Dece2023 9:28pm Atrial fibrillation with rap id ventricular response inactive July 9:28pm Atypical chest pain inactive Decem 2023 9:28pm Dysphagia inactive July 21, 2024 9:28pm Elevated troponin inactive Decembe r 2023 9:28pm Esophageal obstruction inactive 2023 9:28pm GERD (gastroesophageal reflu x disease) acute July 31 2 024 11:23am Primary hypertension acute Dece 2023 11:23am Stage 3a chronic kidney disease acut e July 31, 2024 11:23am Chronic heart failure with preserved ejection fraction (HFpEF) resolved July 31 024 11:23am Paroxysmal atrial fibrillation resol phil July 31, 2024 11:23am Esophageal obstruction inactive 2023 11:23am [facility] Work Phone: 1(794) 635-214810-22-2024 Evaluation note* Diagnosis Onset Date Resolution Status Admit Date Acute on chronic heart failu re with preserved ejection fraction (HFpEF) acute June 10 3:15pm Esophageal dysmotility acute Oc tober 2023 3:15pm GERD (gastroesophageal reflu x disease) acute June 10 3:15pm Primary hypertension acute Octo kateryna 2023 3:15pm Stage 3a chronic kidney disease acut e June 10, 2024 3:15pm Paroxysmal atrial fibrillation resol phil June 10, 2024 3:15pm Acute electrocardiogram changes reso lved June 30, 2024 5:45pm Chest pain resolved June 30, 2024 5:45pm Chronic heart failure with preserved ejection fraction (HFpEF) resolved June 30 024 5:45pm Elevated troponin resolved Novembe r 2023 5:45pm High risk medication use resolved June 30, 2024 5:45pm Paroxysmal atrial fibrillation resol phil June 30, 2024 5:45pm GERD (gastroesophageal reflu x disease) acute July 09 2 024 2:54pm Primary hypertension acute Nove [email or web address] 2:54pm Stage 3a chronic kidney disease acut e July 09, 2024 2:54pm Chronic heart failure with preserved ejection fraction (HFpEF) resolved July 09 2:54pm Paroxysmal atrial fibrillation resol phil July 09, 2024 2:54pm Esophageal obstruction inactive No vember 2023 2:54pm Acute kidney injury inactive Decem 2023 9:28pm Atrial fibrillation with rap id ventricular response inactive July 9:28pm Atypical chest pain inactive Decem kateryna 2023 9:28pm Dysphagia inactive July 21, 2024 9:28pm Elevated troponin inactive Decembe r 2023 9:28pm Esophageal obstruction inactive De 2023 9:28pm GERD (gastroesophageal reflu x disease) acute July 31 11:23am Primary hypertension acute Dece mber 2023 11:23am Stage 3a chronic kidney disease acut e July 31, 2024 11:23am Chronic heart failure with preserved ejection fraction (HFpEF) resolved July 31 11:23am Paroxysmal atrial fibrillation resol phil July 31, 2024 11:23am Esophageal obstruction inactive De cem2023 11:23am Abrasion of elbow, left acute J anuary 2024 2:04pm Abrasion of knee, left, infected acu te August 27, 2024 2:04pm Chest wall contusion acute Gonzalez abdoul 2024 2:04pm [facility] Work Phone: 1(562) 697-956310-22-2024 Evaluation note* Diagnosis Onset Date Resolution Status Acute on chronic heart failu re with preserved ejection fraction (HFpEF) acute GERD (gastroesophageal reflux disease) acute Paroxysmal atrial fibrillation acute Primary hypertension acute Stage 3a chronic kidney disease acute Dyspepsia acute GERD (gastroesophageal reflux disease) acute Vomiting acute Acute on chronic heart failu re with preserved ejection fraction (HFpEF) acute Chronic venous insufficiency of lower extremity acute GERD (gastroesophageal reflux disease) acute Paroxysmal atrial fibrillation acute Primary hypertension acute Stage 3a chronic kidney disease acute Dyspepsia acute Esophageal dysmotility acute GERD (gastroesophageal reflux disease) acute Acute on chronic heart failu re with preserved ejection fraction (HFpEF) acute Chronic venous insufficiency of lower extremity acute GERD (gastroesophageal reflux disease) acute Paroxysmal atrial fibrillation acute Primary hypertension acute Stage 3a chronic kidney disease acute [facility] Work Phone: 1(457) 827-393610-17-2024 History of Present illness Narrative* Maxwell Medrano MD - 06/05/2024 12:00 PM EDT CARDIOLOGY OFFICE VISIT CHIEF COMPLAINT Chief Complaint Patient presents with Follow-up HISTORY OF PRESENT ILLNESS HPI 83-year-old female with a past medical history of hypertension, hyperlipidemia. Patient had a long history of atrial fibrillation for which she started seeing [facility] [place] [facility] since 2020 aftershe was hospitalized in [facility] for bradycardia. Adjustment of her medical therapy was performed with amiodarone at that time. 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 She was continue on amiodarone. This medication was discontinued at some point the beginning of 2022 due to long-termside effects. Initially she was placed on Tikosyn but Tikosyn produced QT prolongation and she was placed on sotalol therapy. Patient is being evaluated recently at [facility] for ablation therapy for atrial fibrillation. She also has a long history of shortness of breath but for the last 2 to 3 monthsshe has been having worsening episodes at a [...] and Xarelto therapy 50 mg 1 tablet daily.Patient had a dual-chamber pacemaker [employer] implanted in June 29, 2021. Patient had a cardiac catheterization in 2022 that shows mild coronary artery disease. Medical therapy was recommended. During the last office visit in February 28, 2024, patient was in atrial flutter. ATP was delivered with unsuccessful termination of this arrhythmia. Patient was kept on sotalol 120 mg 1 tablet twice a day. Cardiac catheterization March 2024 CONCLUSIONS: 1. The 1st diagonal branch showed atherosclerotic disease and calcification. 2. Co-dominant right (RCA) and left (LCx) coronary artery system. 3. Double vessel coronary artery disease. 4. Prox LAD 40-50% calcified lesion; 1st Dg 70% diffuse lesion (small vessel). 5. Mid RCA 40-50% calcified lesion. 6. Large LCx with irregularities. 7. Preserved LV systolic function. Patient was seen in my office in March 17, 2024. The time we discussed the option of adjusting of antiarrhythmic therapy and perform a cardioversion. The day of the cardioversion, patient started noticing worsening chest discomfort and shortness of breath. She ended in the hospital at [facility]. During this admission she was in atrial flutter. Rates were controlled between 60 to 90 bpm. She underwent cardioversion with successful sikh to sinus rhythm for at least a day and a half but patient did not feel well during this time. She was continue complaining of abdominal pain in the epigastric area. A cardiac catheterization was performed as described above that showed moderate coronary artery disease but no intervention was performed medical therapy was recommended. Patient was seen my office in April 17, 2024. She was complaining again of shortness of breath andpalpitations and weakness. Sotalol was discontinued and she was placed on amiodarone therapy. Patient also was seen recently by GI service. She has been treated for esophagitis increasing the dose ofPPIs twice a day. Patient states that she was doing well until the last few weeks when she started noticing again getting nausea, did not tolerate oral intake and also weakness in the lower extremities and shortness of breath. Patient had a recent evaluation by GI service [facility] whofound his scope difficult to pass the distal part of the esophagus. Other tests are recommending. Pending evaluation by them. Device interrogation today shows that the patient is in atrial fibrillation the same way that she was in the past. Rates very well-controlled during atrial fibrillation. Past Medical History Past Medical History: Diagnosis Date Arrhythmia Heart failure Hyperlipidemia Hypertension Social History Social History Tobacco Use Smoking status: Never Smokeless tobacco: Never Substance Use Topics Alcohol use: Never Drug use: Never Family History Family History Problem Relation Name Age of Onset Brain cancer Mother Other (arteriosclerotic cardiovascular disease) Father Allergies: Allergies Allergen Reactions Fentanyl Other stroke Outpatient Medications: Current Outpatient Medications Medication Instructions acetaminophen (TYLENOL) 325 mg amiodarone (Pacerone) 200 mg tablet Take 1 tablet (200 mg) by mouth 2 times a day for 7 days, THEN 1 tablet (200 mg) once daily. ascorbic acid-vitamin E-biotin (Hair, Skin, Nails with Biotin) 7.5-7.5-1,250 mg-unit-mcg tablet,chewable 1 tablet, oral, Daily atorvastatin (Lipitor) 40 mg tablet 1 tablet, Daily buPROPion XL (WELLBUTRIN XL) 150 mg, Every morning calcium carbonate/vitamin D3 (CALCIUM 600 + D,3, ORAL) 600 mg cholecalciferol (VITAMIN D-3) 2,000 Units, Daily digoxin (Lanoxin) 125 MCG tablet On day 1 take: 4 tablets together for 1st dose then 4 hours later take 2 more tablets together then 4 hours later take another 2 tablets together, then take 1 tablet daily thereafter dilTIAZem CD (CARDIZEM CD) 180 mg, oral, Daily escitalopram (Lexapro) 10 mg tablet 1 tablet, oral, Daily furosemide (LASIX) 20 mg, Daily magnesium oxide (MAG-OX) 400 mg, oral, Daily multivitamin (Daily Multi-Vitamin) tablet 1 tablet, Daily pantoprazole (PROTONIX) 40 mg, oral, Daily, Do not crush, chew, or split. rivaroxaban (XARELTO) 15 mg, oral, Daily with evening meal rOPINIRole (REQUIP) 1 mg, Nightly REVIEW OF SYSTEMS Review of Systems All other systems reviewed and are negative. VITALS Vitals: 06/05/24 1258 BP: 126/64 PHYSICAL EXAM Constitutional: Appearance: Healthy appearance. Not in distress. Neck: Vascular: No JVR. JVD normal. Pulmonary: Effort: Pulmonary effort is normal. Breath sounds: Normal breath sounds. No wheezing. No rhonchi. No rales. Chest: Chest wall: Not tender to palpatation. Cardiovascular: PMI at left midclavicular line. Normal rate. Regular rhythm. Normal S1. Normal S2. Murmurs: There is no murmur. No gallop. No click. No rub. Comments: Device left pectoral area. No hematoma or infection noted. Pulses: Intact distal pulses. Edema: Peripheral edema absent. Abdominal: General: Bowel sounds are normal. Palpations: Abdomen is soft. Tenderness: There is no abdominal tenderness. Musculoskeletal: Normal range of motion. General: No tenderness. Skin: General: Skin is warm and dry. Neurological: General: No focal deficit present. Mental Status: Alert and oriented to person, place and time. ASSESSMENT AND PLAN Clinical impression 1. Shortness of breath, persistent 2. Paroxysmal persistent atrial fibrillation on high risk medication (sotalol). Sotalol was discontinued in March 2024. Currently she is on amiodarone 200 mg daily 3. Long-term anticoagulant therapy with Xarelto 4. Hypertension 5. Hyperlipidemia 6. Cardiomyopathy with a left ventricular ejection fraction 40% per echocardiogram August 2022 7. No evidence of ischemia per stress test in 2019 8. Tachybradycardia syndrome status post dual-chamber pacemaker implanted in 2020 Plan-recommendations I had a lengthy discussion with patient and family member regarding her shortness of breath. Most likely this is not related with atrial fibrillation. Patient was seen my office a month ago and she was doing great she could do all her activities without any problems and she was in atrial fibrillation rates controlled. She states that for the last 2 to 3 weeks she has been having again episodes ofshortness of breath with nausea vomiting and also chest discomfort in the retrosternal area. She needs to have sooner evaluation by GI service. I have personally reviewed the results of the EGD with patient and family members. Patient will be seen my office in the next 3 to 4 weeks. We will continue rate control strategy for atrial fibrillation. Follow device clinic as scheduled. Risk factor modification and lifestyle modification discussed with patient. Diet , exercise and hydration discussed with patient. I have personally review with patient during this office visit, laboratory data, echocardiogram results, stress test results, Holter-event monitor results prior and after the last electrophysiology visit. All questions has been answered. Continue with high risk medication (amiodarone). Get CMP and TSH every 6 months for high risk medication. Get complete PFTs annually for high risk medication. Please excuse any errors in grammar or translation related to this dictation. Voice recognition software was utilized to prepare this document. Scribe Attestation By signing my name below, INesha LPN , Anatoly attest that this documentation has been prepared under the direction and in the presence of Martín Medrano MD. documented in this [facility] Work Phone: 1(335) 913-407110-17-2024 Instructions* Patient Instructions* Nesha Wilson LPN - 06/05/2024 12:[address] Medrano wants pt to see Katie Yung MD [facility] for Gastrointestinal for weakness, vomiting and unable to eat. [employer] to help schedule. If you continue not to feel good going into the weekend and you are short of breath and not feelingwell go to [facility]. Dr. Medrano is hotel casino floorperson this weekend. He said if you do go to [facility] to call [phone] and speak with our on-call team and tell them to notify Dr. Medrano you are going to hospital so he can see you. DID YOU KNOW We have a pharmacy here in the [facility]. They can fill all prescriptions, not just cardiac medications. Prescriptions from other pharmacies can easily be transferred to the pharmacy by the pharmacist on site. pharmacies offer FREE HOME DELIVERY on medications to anywherein [place]. They can sync your medications. Typically prescriptions can be ready in 10 - 15 minutes. If pharmacy is unable to fill your prescription or if cost is more than your paying now the Pharmacist can easily transfer back to your Pharmacy of choice. Pharmacy phone # [phone]. Please bring all medicines, vitamins, and herbal supplements with you in original bottles to every appointment!!!! Prescriptions will not be filled unless you are compliant with your follow up appointments or have a follow up appointment scheduled as per instruction of your physician. Refills should be requested at the time of your visit. [facility] Work Phone: 1(162) 773-285110-10-2024 Hospital Discharge instructions* Discharge Instructions* Kaylah Ledesma RN - 05/29/2024 1:[address] Yung: IMPRESSION: 1. Tortuous and dilated distal esophagus with pooling of fluid in the distal esophagus suggestive of stasis due to dysmotility or obstruction 2. 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 Narrowed area of proximal stomach of unclear etiology (h/o fundoplication? vs external compression?) 4. Successful manometry catheter placement RECOMMENDATIONS: 1. F/u HREM results 2. F/U with PCP. 3. F/u with Amna Powell at [facility] * Attachments The following attachments cannot be sent through Care Everywhere. * Upper GI Endoscopy Discharge Instructions (Australian) * Esophageal Manometry (Australian) * Moderate Sedation in Adults Discharge Instructions (Australian) * FALLSPREVENTION documented in this [id number] Surgery Surgical operation note* OP Note - Katie Yung MD - 05/29/2024 12:43 PM EDT Patient's Name: Austin Golden Date: 05/29/24 Written informed consent obtained from patient. Endoscopic procedure risks (including but not limited to perforation, infection, bloating and bleeding) benefits and alternatives explained and questions answered. Patient verbalized understanding. Based on history and airway assessment patient is not an appropriate candidate for moderate sedation and will undergo sedation with the assistance of anesthesia physician/DEVELOPMENTAL PSYCHOLOGIST team. Please see corresponding note for full details. Katie Yung MD 05/29/24 1:08 PM Austin Golden 83 year old Surgical Contact Serial Number: [id number] Location: [facility] 02 Date: 05/29/2024 WHEELMAN: Kaite Yung MD ATTENDING:Katie Yung MD Procedure(s): ESOPHAGOGASTRODUODENOSCOPY with HREM catheter placement SEDATION: Anesthesia Assisted Pre-Op Diagnosis Codes: * Esophageal dysphagia [R13.19] INDICATIONS: This is a 83 year old female with: a history dysphagia and unable to pass manometry catheter in lab, here for EGD for catheter placement under While monitoring the patient with EKG, pulse oximetry and BP, endoscope passed to second portion ofduodenum by direct visualization. DUODENUM: bulb and descending portion appeared normal. 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 There is also a narrowed area of the proximal stomach that extends from 35 to 32cm from the incisors. On retroflexion this appears almost as a partial fundoplication. The mucosa in this region has a metaplastic pattern. It is possible this is a diaphragmatic hernia however there is no clear respiratory variation, so I am not certain what the etiology of this is. Otherwise, pyloric channel, antrum, body, fundus and cardia, including retroflexed views appear normal. ESOPHAGUS: diaphragmatic hiatus was 35 cm from incisors and GE junction (upper margin of gastric folds) was at 32 cm from incisors. Squamocolumnar junction was at 32 cm from incisors. There is a schatzki ring at the GEJ that is non- obstructive. The distal esophagus is mildly dilated. Scope was withdrawn and HREM catheter was placed via right nare. 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 A snare catheter was used to mobilize the manometry catheter after which it was able to enter the stomach. Scope then withdrawn and procedure concluded. Catheter advanced to 50cm. Taped to right cheek. Esophageal dysphagia [998515] TEE PATH SPECIMEN SENT: no SPECIMEN: None PHOTOGRAPH TAKEN:yes COMPLICATIONS DURING PROCEDURE: None EBL (estimated blood loss): none IMPRESSION: 1. Tortuous and dilated distal esophagus with pooling of fluid in the distal esophagus suggestive of stasis due to dysmotility or obstruction 2. 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 Narrowed area of proximal stomach of unclear etiology (h/o fundoplication? vs external compression?) 4. Successful manometry catheter placement RECOMMENDATIONS: 1. F/u HREM results 2. F/U with PCP. 3. F/u with Amna Powell at [facility] CC: Primary Care Provider: No primary care provider on file. PERSON COMPLETING NOTE: Katie Yung MD 05/29/2024 at 1:08 PM Patient meets criteria for discharge/transfer: Katie Yung MD [id number] Miscellaneous Notes* OP Note - Katie Yung MD - 05/29/2024 12:43 PM EDT Patient's Name: Austni Golden Date: 05/29/24 Written informed consent obtained from patient. Endoscopic procedure risks (including but not limited to perforation, infection, bloating and bleeding) benefits and alternatives explained and questions answered. Patient verbalized understanding. Based on history and airway assessment patient is not an appropriate candidate for moderate sedation and will undergo sedation with the assistance of anesthesia physician/DEVELOPMENTAL PSYCHOLOGIST team. Please see corresponding note for full details. Katie Yung MD 05/29/24 1:08 PM Austin Golden 83 year old Surgical Contact Serial Number: [id number] Location: ENDO 02 Date: 05/29/2024 WHEELMAN: Katie Yung MD ATTENDING:Katie Yung MD Procedure(s): ESOPHAGOGASTRODUODENOSCOPY with HREM catheter placement SEDATION: Anesthesia Assisted Pre-Op Diagnosis Codes: * Esophageal dysphagia [R13.19] INDICATIONS: This is a 83 year old female with: a history dysphagia and unable to pass manometry catheter in lab, here for EGD for catheter placement under While monitoring the patient with EKG, pulse oximetry and BP, endoscope passed to second portion ofduodenum by direct visualization. DUODENUM: bulb and descending portion appeared normal. 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 There is also a narrowed area of the proximal stomach that extends from 35 to 32cm from the incisors. On retroflexion this appears almost as a partial fundoplication. The mucosa in this region has a metaplastic pattern. It is possible this is a diaphragmatic hernia however there is no clear respiratory variation, so I am not certain what the etiology of this is. Otherwise, pyloric channel, antrum, body, fundus and cardia, including retroflexed views appear normal. ESOPHAGUS: diaphragmatic hiatus was 35 cm from incisors and GE junction (upper margin of gastric folds) was at 32 cm from incisors. Squamocolumnar junction was at 32 cm from incisors. There is a schatzki ring at the GEJ that is non- obstructive. The distal esophagus is mildly dilated. Scope was withdrawn and HREM catheter was placed via right nare. 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 A snare catheter was used to mobilize the manometry catheter after which it was able to enter the stomach. Scope then withdrawn and procedure concluded. Catheter advanced to 50cm. Taped to right cheek. Esophageal dysphagia [360702] TEE PATH SPECIMEN SENT: no SPECIMEN: None PHOTOGRAPH TAKEN:yes COMPLICATIONS DURING PROCEDURE: None EBL (estimated blood loss): none IMPRESSION: 1. Tortuous and dilated distal esophagus with pooling of fluid in the distal esophagus suggestive of stasis due to dysmotility or obstruction 2. 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 Narrowed area of proximal stomach of unclear etiology (h/o fundoplication? vs external compression?) 4. Successful manometry catheter placement RECOMMENDATIONS: 1. F/u HREM results 2. F/U with PCP. 3. F/u with Amna Powell at [facility] CC: Primary Care Provider: No primary care provider on file. PERSON COMPLETING NOTE: Katie Yung MD 05/29/2024 at 1:08 PM Patient meets criteria for discharge/transfer: Katie Yung MD documented in this [id number] Evaluation note* Diagnosis Onset Date Resolution Status Acute on chronic heart failu re with preserved ejection fraction (HFpEF) acute GERD (gastroesophageal reflux disease) acute Paroxysmal atrial fibrillation acute Primary hypertension acute Stage 3a chronic kidney disease acute Dyspepsia acute GERD (gastroesophageal reflux disease) acute Vomiting acute Acute on chronic heart failu re with preserved ejection fraction (HFpEF) acute Chronic venous insufficiency of lower extremity acute GERD (gastroesophageal reflux disease) acute Paroxysmal atrial fibrillation acute Primary hypertension acute Stage 3a chronic kidney disease acute Cirrhosis acute GERD (gastroesophageal reflux disease) acute [facility] Work Phone: 1(255) 174-118909-26-2024 NoteGI Motility Lab Note Pre-procedure: Patient verified using [...] stools, and Signs of infection such as feverThe [place] [id number] Evaluation note* Diagnosis Onset Date Resolution Status Acute on chronic heart failu re with preserved ejection fraction (HFpEF) acute Obstructive sleep apnea acut e Paroxysmal atrial fibrillation acute Primary hypertension acute Stage 3a chronic kidney disease acute Hx of hiatal hernia noneacti ve Acute on chronic heart failu re with preserved ejection fraction (HFpEF) acute GERD (gastroesophageal reflux disease) acute Paroxysmal atrial fibrillation acute Primary hypertension acute Stage 3a chronic kidney disease acute Dyspepsia acute GERD (gastroesophageal reflux disease) acute Vomiting acute [facility] Work Phone: [phone]) 308-625709-09-2024 History of Present illness Narrative* Maxwell Medrano MD - 04/28/2024 11:30 AM EDT CARDIOLOGY OFFICE VISIT CHIEF COMPLAINT Chief Complaint Patient presents with Follow-up 2 WEEK HISTORY OF PRESENT ILLNESS HPI 83-year-old female with a past medical history of hypertension, hyperlipidemia. Patient had a long history of atrial fibrillation for which she started seeing [facility] since 2020 aftershe was hospitalized in [facility] for bradycardia. Adjustment of her medical therapy was performed with amiodarone at that time. 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 She was continue on amiodarone. This medication was discontinued at some point the beginning of 2022 due to long-termside effects. Initially she was placed on Tikosyn but Tikosyn produced QT prolongation and she was placed on sotalol therapy. Patient is being evaluated recently at [facility] for ablation therapy for atrial fibrillation. She also has a long history of shortness of breath but for the last 2 to 3 monthsshe has been having worsening episodes at a [...] and Xarelto therapy 50 mg 1 tablet daily.Patient had a dual-chamber pacemaker [employer] implanted in June 29, 2021. Patient had a cardiac catheterization in 2022 that shows mild coronary artery disease. Medical therapy was recommended. Patient states that she is still complaining of episodes of shortness of breath with moderate activities. Sometimes even with mild activity she is very tired and fatigued. She has at least 2 evaluations in outside hospital for atrial fibrillation with shortness of breath. The dose of sotalol was suggested. Currently she is using sotalol 120 mg 1 tablet twice a day. During the last office visit in February 28, 2024, patient was in atrial flutter. ATP was delivered with unsuccessful termination of this arrhythmia. Patient was kept on sotalol 120 mg 1 tablet twice a day. Cardiac catheterization March 2024 CONCLUSIONS: 1. The 1st diagonal branch showed atherosclerotic disease and calcification. 2. Co-dominant right (RCA) and left (LCx) coronary artery system. 3. Double vessel coronary artery disease. 4. Prox LAD 40-50% calcified lesion; 1st Dg 70% diffuse lesion (small vessel). 5. Mid RCA 40-50% calcified lesion. 6. Large LCx with irregularities. 7. Preserved LV systolic function. Patient was seen in my office in March 17, 2024. The time we discussed the option of adjusting of antiarrhythmic therapy and perform a cardioversion. The day of the cardioversion, patient started noticing worsening chest discomfort and shortness of breath. She ended in the hospital at [facility]. During this admission she was in atrial flutter. Rates were controlled between 60 to 90 bpm. She underwent cardioversion with successful sikh to sinus rhythm for at least a day and a half but patient did not feel well during this time. She was continue complaining of abdominal pain in the epigastric area. A cardiac catheterization was performed as described above that showed moderate coronary artery disease but no intervention was performed medical therapy was recommended. Patient was seen my office in April 17, 2024. She was complaining again of shortness of breath andpalpitations and weakness. Sotalol was discontinued and she was placed on amiodarone therapy. Patient states that for the last 3 days she is feeling great. Now she has more energy to activities. She is not tired and fatigued. She has not noticed any palpitations. Patient also was seen recently by GI service. She has been treated for esophagitis increasing the dose of PPIs twice a day. Device interrogation today during this evaluation dual-chamber pacemaker [employer] with battery longevity 6.3 years. [place] of atrial fibrillation 58% of the time with episodes of rapid ventricular response. Apparently she has been asymptomatic during these episodes. Past Medical History Past Medical History: Diagnosis Date Arrhythmia Heart failure (Multi) Hyperlipidemia Hypertension Social History Social History Tobacco Use Smoking status: Never Smokeless tobacco: Never Substance Use Topics Alcohol use: Never Drug use: Never Family History Family History Problem Relation Name Age of Onset Brain cancer Mother Other (arteriosclerotic cardiovascular disease) Father Allergies: Allergies Allergen Reactions Fentanyl Other stroke Outpatient Medications: Current Outpatient Medications Medication Instructions acetaminophen (TYLENOL) 325 mg, oral, TAKE 1 TABLET EVERY 4 TO 6 HOURS NEEDED. ascorbic acid-vitamin E-biotin (Hair, Skin, Nails with Biotin) 7.5-7.5-1,250 mg-unit-mcg tablet,chewable 1 tablet, oral, Daily atorvastatin (Lipitor) 40 mg tablet 1 tablet, oral, Daily buPROPion XL (WELLBUTRIN XL) 150 mg, oral, Every morning calcium carbonate/vitamin D3 (CALCIUM 600 + D,3, ORAL) 600 mg, oral cholecalciferol (VITAMIN D-3) 2,000 Units, oral, Daily digoxin (Lanoxin) 125 MCG tablet On day 1 take: 4 tablets together for 1st dose then 4 hours later take 2 more tablets together then 4 hours later take another 2 tablets together, then take 1 tablet daily thereafter dilTIAZem CD (CARDIZEM CD) 180 mg, oral, Daily escitalopram (Lexapro) 10 mg tablet 1 tablet, oral, Daily furosemide (LASIX) 20 mg, oral, Daily magnesium oxide (MAG-OX) 400 mg, oral, Daily multivitamin (Daily Multi-Vitamin) tablet 1 tablet, oral, Daily pantoprazole (PROTONIX) 40 mg, oral, Daily, Do not crush, chew, or split. rivaroxaban (XARELTO) 15 mg, oral, Daily with evening meal rOPINIRole (REQUIP) 1 mg, oral, Nightly REVIEW OF SYSTEMS Review of Systems All other systems reviewed and are negative. VITALS Vitals: 04/28/24 1155 BP: 110/70 Pulse: 88 PHYSICAL EXAM Constitutional: Appearance: Healthy appearance. Not in distress. Neck: Vascular: No JVR. JVD normal. Pulmonary: Effort: Pulmonary effort is normal. Breath sounds: Normal breath sounds. No wheezing. No rhonchi. No rales. Chest: Chest wall: Not tender to palpatation. Cardiovascular: PMI at left midclavicular line. Normal rate. Regular rhythm. Normal S1. Normal S2. Murmurs: There is no murmur. No gallop. No click. No rub. Comments: Device left pectoral area. No hematoma or infection noted. Pulses: Intact distal pulses. Edema: Peripheral edema absent. Abdominal: General: Bowel sounds are normal. Palpations: Abdomen is soft. Tenderness: There is no abdominal tenderness. Musculoskeletal: Normal range of motion. General: No tenderness. Skin: General: Skin is warm and dry. Neurological: General: No focal deficit present. Mental Status: Alert and oriented to person, place and time. ASSESSMENT AND PLAN Clinical impression 1. Shortness of breath, persistent 2. Paroxysmal persistent atrial fibrillation on high risk medication (sotalol). Sotalol was discontinued in March 2024. Currently she is on amiodarone 200 mg daily 3. Long-term anticoagulant therapy with Xarelto 4. Hypertension 5. Hyperlipidemia 6. Cardiomyopathy with a left ventricular ejection fraction 40% per echocardiogram August 2022 7. No evidence of ischemia per stress test in 2019 8. Tachybradycardia syndrome status post dual-chamber pacemaker implanted in 2021 Plan recommendations I had a lengthy discussion with patient and family member regarding plan to follow for management of atrial fibrillation and shortness of breath-fatigue. Her symptoms have improved significantly for the last 3 days. She feels completely fine. She is asymptomatic regarding palpitations even device has been showing episodes of atrial fibrillation right ventricular response. We will continue with amiodarone but we will reload her to see if we can control the rates during atrial fibrillation. Patient will start amiodarone again 200 mg 1 tablet twice a day for 7 days and then 200 g daily. Patient will be seen my office in 4 weeks or sooner if needed. We can offer her cardioversion during the next office visit. Continue with anticoagulant therapy. Risk factor modification and lifestyle modification discussed with patient. Diet , exercise and hydration discussed with patient. I have personally review with patient during this office visit, laboratory data, echocardiogram results, stress test results, Holter-event monitor results prior and after the last electrophysiology visit. All questions has been answered. Please excuse any errors in grammar or translation related to this dictation. Voice recognition software was utilized to prepare this document. Scribe Attestation By signing my name below, I, Nesha Wilson LPN , Scribe attest that this documentation has been prepared under the direction and in the presence of Martín Medrano MD. [facility] Work Phone: 1(155) 567-641609-09-2024 Instructions* Patient Instructions* Nesha Wilson LPN - 04/28/2024 11:30 AM EDT Increase Amiodarone to 200 mg twice daily x 1 week,then decrease to 1 tablet daily thereafter. DID YOU KNOW We have a pharmacy here in the [facility]. They can fill all prescriptions, not just cardiac medications. Prescriptions from other pharmacies can easily be transferred to the pharmacy by the pharmacist on site. pharmacies offer FREE HOME DELIVERY on medications to anywherein [place]. They can sync your medications. Typically prescriptions can be ready in 10 - 15 minutes. If pharmacy is unable to fill your prescription or if cost is more than your paying now the Pharmacist can easily transfer back to your Pharmacy of choice. Pharmacy phone # [phone]. Please bring all medicines, vitamins, and herbal supplements with you in original bottles to every appointment!!!! Prescriptions will not be filled unless you are compliant with your follow up appointments or have a follow up appointment scheduled as per instruction of your physician. Refills should be requested at the time of your visit. documented in this [facility] Work Phone: 1(730) 238-185709-05-2024 History of Present illness Narrative* Debbie Mac MD - 04/24/2024 3:10 PM EDT Blaise Golden is a 83 y.o. female Chief Complaint Follow-up HPI Patient is here for follow-up continue management for persistent atrial fibrillation/flutter, hypertension, hyperlipidemia. Last time I saw her she was continued to complain of shortness of breath. Ireferred her back to Dr. Medrano and julio césar for an ablation. She was admitted but apparently this was not accomplished. Apparently she was left sotalol and had cardioversion. She also was advised to see GI because of some symptoms of difficulty swallowing. The patient appears completely confused about her medication. She mentioned a physician put her on amiodarone. Sotalol but she cannot tell me who. Dr. Medrano last note suggest to continue sotalol. Today she is in atrial fibrillation. She has 2 dosesof diltiazem 120 and 180 and again appeared completely confused about her medication Assessment 1. Persistent atrial flutter/fibrillation with clinical picture of tachybradycardia syndrome. She is status post permanent pacemaker implantation rremain in sinus rhythm. Amiodarone was discontinued because of concern about pulmonary side effects. Tikosyn was ineffective of lower dose and resulted in prolonged QTc. She was partially controlled with sotalol. She was sent to Dr. Medrano for an ablation but this has not been accomplished. During her recent hospitalization she underwent repeat cardiaccatheterization that showed mild diffuse coronary artery disease did not require intervention. Currently unclear to me if she is on amiodarone or sotalol she reports she was seen by someone and her sotalol was discontinued and was placed on amiodarone but she cannot tell me who 2. Long-term anticoagulation with Xarelto which dose due to renal dysfunction 3. History of nephrolithiasis 4. Hypertension controlled 5. Hyperlipidemia with mild weight gain recently 6. Borderline overweight 7. Single-vessel coronary artery disease affecting small diagonal branch based on recent heart cath 8. Had complaint of recurrent nausea and vomiting she was diagnosed with esophageal stricture with concern liver cirrhosis followed by GI 9. Status post cholecystectomy 10. Chronic complaint of shortness of breath seem to coincide with atrial fibrillation flutter Plan 1. I advised the patient that it would be very difficult to give her an advised not knowing what her medication and who adjusted them. The patient indicates that she will go home check her paperwork and call back with accurate doses and the name of the physician who adjusted her medication. But I told her to stay on the higher dose of diltiazem 180 once daily 2. Risk, benefit and alternative anticoagulation reviewed patient understood and agreed 3. Follow-up in a few weeks 5. I reviewed her recent hospitalization/cardiac catheterization with her Review of Systems Constitutional: Positive for malaise/fatigue. Respiratory: Positive for shortness of breath. All other systems reviewed and are negative. Vitals: 04/24/24 1533 BP: 112/80 BP Location: Right leg Patient Position: Sitting Pulse: (!) 114 Weight: 65.8 kg (145 lb) Height: 1.524 m (5') EKG done in office today Objective Physical Exam Constitutional: Appearance: Normal appearance. HENT: Nose: Nose normal. Neck: Vascular: No carotid bruit. Cardiovascular: Rate and Rhythm: Normal rate. Rhythm irregular. Pulses: Normal pulses. Heart sounds: Normal heart sounds. Pulmonary: Effort: Pulmonary effort is normal. Abdominal: General: Bowel sounds are normal. Palpations: Abdomen is soft. Musculoskeletal: General: Normal range of motion. Cervical back: Normal range of motion. Right lower leg: No edema. Left lower leg: No edema. Skin: General: Skin is warm and dry. Neurological: General: No focal deficit present. Mental Status: She is alert. Psychiatric: Mood and Affect: Mood normal. Behavior: Behavior normal. Thought Content: Thought content normal. Judgment: Judgment normal. Allergies Fentanyl Current Medications Current Outpatient Medications: acetaminophen (Tylenol) 325 mg capsule, Take 1 capsule (325 mg) by mouth. TAKE 1 TABLET EVERY 4 TO 6 HOURS NEEDED., Disp: , Rfl: ascorbic acid-vitamin E-biotin (Hair, Skin, Nails with Biotin) 7.5-7.5-1,250 mg-unit-mcg tablet,chewable, Chew 1 tablet once daily., Disp: , Rfl: atorvastatin (Lipitor) 40 mg tablet, Take 1 tablet (40 mg) by mouth once daily., Disp: , Rfl: calcium carbonate/vitamin D3 (CALCIUM 600 + D,3, ORAL), Take 600 mg by mouth., Disp: , Rfl: cholecalciferol (Vitamin D-3) 50 mcg (2,000 unit) capsule, Take 1 capsule (50 mcg) by mouth once daily., Disp: , Rfl: digoxin (Lanoxin) 125 MCG tablet, On day 1 take: 4 tablets together for 1st dose then 4 hours latertake 2 more tablets together then 4 hours later take another 2 tablets together, then take 1 tabletdaily thereafter (Patient taking differently: Take 1 tablet (125 mcg) by mouth once daily. On day 1take: 4 tablets together for 1st dose then 4 hours later take 2 more tablets together then 4 hours later take another 2 tablets together, then take 1 tablet daily thereafter), Disp: 90 tablet, Rfl: 0 dilTIAZem CD (Cardizem CD) 180 mg 24 hr capsule, Take 1 capsule (180 mg) by mouth once daily., Disp: 30 capsule, Rfl: 11 escitalopram (Lexapro) 10 mg tablet, Take 1 tablet (10 mg) by mouth once daily., Disp: , Rfl: furosemide (Lasix) 20 mg tablet, Take 1 tablet (20 mg) by mouth once daily., Disp: , Rfl: magnesium oxide (Mag-Ox) 400 mg (241.3 mg magnesium) tablet, Take 1 tablet (400 mg) by mouth once daily., Disp: , Rfl: multivitamin (Daily Multi-Vitamin) tablet, Take 1 tablet by mouth once daily., Disp: , Rfl: pantoprazole (ProtoNix) 40 mg EC tablet, Take 1 tablet (40 mg) by mouth once daily. Do not crush, chew, or split., Disp: 30 tablet, Rfl: 2 rivaroxaban (Xarelto) 15 mg tablet, Take 1 tablet (15 mg) by mouth once daily in the evening. Take with meals., Disp: 30 tablet, Rfl: 3 rOPINIRole (Requip) 1 mg tablet, Take 1 tablet (1 mg) by mouth once daily at bedtime., Disp: , Rfl: sotalol (Betapace) 160 mg tablet, Take 1 tablet (160 mg) by mouth 2 times a day., Disp: 60 tablet, Rfl: 5 Assessment/Plan 1. Atrial flutter, unspecified type (Multi) Follow Up In Cardiology ECG 12 Lead 2. Essential hypertension, benign Follow Up In Cardiology 3. Chronic diastolic heart failure (Multi) 4. Mixed hyperlipidemia 5. Sinus bradycardia 6. Single vessel coronary artery disease 7. Anticoagulated 8. Shortness of breath 9. Never smoked any substance 10. BMI 28.0-28.9,adult Scribe Attestation By signing my name below, I, Maggy Lerma LPN, Scribe attest that this documentation has been prepared under the direction and in the presence of MD Bo. Provider Attestation - Scribe documentation All medical record entries made by the Scribe were at my direction and personally dictated by me. Ihave reviewed the chart and agree that the record accurately reflects my personal performance of the history, physical exam, discussion and plan. documented in this [facility] Work Phone: 1(254) 221-605909-05-2024 Instructions* Patient Instructions* Maggy Vee LPN - 04/24/2024 3:10 PM EDT Please bring all medicines, vitamins, and herbal supplements with you when you come to the office. Prescriptions will not be filled unless you are compliant with your follow up appointments or have a follow up appointment scheduled as per instruction of your physician. Refills should be requested at the time of your visit. BMI was above normal measurement. Current weight: 65.8 kg (145 lb) Weight change since last visit (-) denotes wt loss -1.4 lbs Weight loss needed to achieve BMI 25: 17.3 Lbs Weight loss needed to achieve BMI 30: -8.3 Lbs Provided instructions on dietary changes Provided instructions on exercise. Resume Betapace home dose. Do not take amio 2 weeks documented in this [facility] Work Phone: 1(120) 225-633008-30-2024 Evaluation note* Diagnosis Onset Date Resolution Status Admit Date Dyspepsia acute April 18, 2 024 10:03am GERD (gastroesophageal reflu x disease) acute April 18 10:03am Vomiting acute April 18 024 10:03am Acute on chronic heart failu re with preserved ejection fraction (HFpEF) acute May 08, 2024 11:45am Chronic venous insufficiency of lower extremity acute May 08, 2024 11:45am GERD (gastroesophageal reflu x disease) acute May 08, 2024 11:45am Paroxysmal atrial fibrillation acute May 08, 2024 11:45am Primary hypertension acute Apr 11:45am Stage 3a chronic kidney disease acut e May 08, 2024 11:45am Dyspepsia acute April 9:22am Esophageal dysmotility acute Se ptember 2023 9:22am GERD (gastroesophageal reflu x disease) acute May 19, 2024 9:22am Acute on chronic heart failu re with preserved ejection fraction (HFpEF) acute June 10 3:15pm Esophageal dysmotility acute Oc 2023 3:15pm GERD (gastroesophageal reflu x disease) acute June 10 3:15pm Paroxysmal atrial fibrillation acute June 10, 2024 3:15pm Primary hypertension acute Oct2023 3:15pm Stage 3a chronic kidney disease acut e June 10, 2024 3:15pm Acute electrocardiogram changes acut e June 30, 2024 5:45pm Chest pain acute June 30, 2024 5:45pm Chronic heart failure with preserved ejection fraction (HFpEF) acute June 30 024 5:45pm Elevated troponin acute 2023 5:45pm High risk medication use acute June 30, 2024 5:45pm Paroxysmal atrial fibrillation acute June 30, 2024 5:45pm Chronic heart failure with preserved ejection fraction (HFpEF) acute July 09 024 2:54pm Esophageal obstruction acute No vem2023 2:54pm GERD (gastroesophageal reflu x disease) acute July 09, 2 024 2:54pm Paroxysmal atrial fibrillation acute July 09, 2024 2:54pm Primary hypertension acute Nove mb2023 2:54pm Stage 3a chronic kidney disease acut e July 09, 2024 2:54pm [facility] Work Phone: 1(275) 298-653608-30-2024 Evaluation note* Diagnosis Onset Date Resolution Status [...] acute Hx of hiatal hernia noneacti ve Acute on chronic heart failu re with preserved ejection fraction (HFpEF) acute GERD (gastroesophageal reflux disease) acute Paroxysmal atrial fibrillation acute Primary hypertension acute Stage 3a chronic kidney disease acute Dyspepsia acute GERD (gastroesophageal reflux disease) acute Vomiting acute [facility] Work Phone: 1(169) 263-876708-29-2024 History of Present illness Narrative* Maxwell Medrano MD - 04/17/2024 10:15 AM EDT CARDIOLOGY OFFICE VISIT CHIEF COMPLAINT Chief Complaint Patient presents with Hospital Follow-up CARDIOVERSION 03/25/24 HISTORY OF PRESENT ILLNESS HPI 83-year-old female with a past medical history of hypertension, hyperlipidemia. Patient had a long history of atrial fibrillation for which she started seeing [facility] [place] [facility] since 2020 aftershe was hospitalized in [facility] for bradycardia. Adjustment of her medical therapy was performed with amiodarone at that time. 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 She was continue on amiodarone. This medication was discontinued at some point the beginning of 2022 due to long-termside effects. Initially she was placed on Tikosyn but Tikosyn produced QT prolongation and she was placed on sotalol therapy. [facility] [facility] for [facility] for atrial fibrillation. She also has a long history of shortness of breath but for the last 2 to 3 monthsshe has been having worsening episodes at a [...] and Xarelto therapy 50 mg 1 tablet daily.Patient had a dual-chamber pacemaker [employer] implanted in June 29, 2021. Patient had a cardiac catheterization in 2022 that shows mild coronary artery disease. Medical therapy was recommended. Patient states that she is still complaining of episodes of shortness of breath with moderate activities. Sometimes even with mild activity she is very tired and fatigued. She has at least 2 evaluations in outside hospital for atrial fibrillation with shortness of breath. The dose of sotalol was suggested. Currently she is using sotalol 120 mg 1 tablet twice a day. During the last office visit in February 28, 2024, patient was in atrial flutter. ATP was delivered with unsuccessful termination of this arrhythmia. Patient was kept on sotalol 120 mg 1 tablet twice a day. 83-year-old female with a past medical history of hypertension, hyperlipidemia. Patient had a long history of atrial fibrillation for which she started seeing [facility] since 2020 aftershe was hospitalized in [facility] for bradycardia. Adjustment of her medical therapy was performed with amiodarone at that time. 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 She was continue on amiodarone. This medication was discontinued at some point the beginning of 2022 due to long-termside effects. Initially she was placed on Tikosyn but Tikosyn produced QT prolongation and she was placed on sotalol therapy. Patient is being evaluated recently at [facility] for ablation therapy for atrial fibrillation. She also has a long history of shortness of breath but for the last 2 to 3 monthsshe has been having worsening episodes at a [...] and Xarelto therapy 50 mg 1 tablet daily.Patient had a dual-chamber pacemaker [employer] implanted in June 29, 2021. Patient had a cardiac catheterization in 2022 that shows mild coronary artery disease. Medical therapy was recommended. Patient states that she is still complaining of episodes of shortness of breath with moderate activities. Sometimes even with mild activity she is very tired and fatigued. She has at least 2 evaluations in outside hospital for atrial fibrillation with shortness of breath. The dose of sotalol was suggested. Currently she is using sotalol 120 mg 1 tablet twice a day. During the last office visit in February 28, 2024, patient was in atrial flutter. ATP was delivered with unsuccessful termination of this arrhythmia. Patient was kept on sotalol 120 mg 1 tablet twice a day. Cardiac catheterization March 2024 CONCLUSIONS: 1. The 1st diagonal branch showed atherosclerotic disease and calcification. 2. Co-dominant right (RCA) and left (LCx) coronary artery system. 3. Double vessel coronary artery disease. 4. Prox LAD 40-50% calcified lesion; 1st Dg 70% diffuse lesion (small vessel). 5. Mid RCA 40-50% calcified lesion. 6. Large LCx with irregularities. 7. Preserved LV systolic function. Patient was seen in my office in March 17, 2024. The time we discussed the option of adjusting of antiarrhythmic therapy and perform a cardioversion. The day of the cardioversion, patient started noticing worsening chest discomfort and shortness of breath. She ended in the hospital at [facility]. During this admission she was in atrial flutter. Rates were controlled between 60 to 90 bpm. She underwent cardioversion with successful sikh to sinus rhythm for at least a day and a half but patient did not feel well during this time. She was continue complaining of abdominal pain in the epigastric area. A cardiac catheterization was performed as described above that showed moderate coronary artery disease but no intervention was performed medical therapy was recommended. Patient states that since the discharge from the hospital she is still feeling short of breath and also with nausea and difficult to swallow food. She has a pending appointment by GI service. EKG performed today shows atrial flutter atypical at a rate of 83 bpm QRS duration 70 ms QT corrected 450 ms. Rhythm strip shows the same pattern. Patient is still using sotalol therapy at a dose of 160 mg 1tablet twice a day. Past Medical History Past Medical History: Diagnosis Date Arrhythmia Heart failure (Multi) Hyperlipidemia Hypertension Social History Social History Tobacco Use Smoking status: Never Smokeless tobacco: Never Substance Use Topics Alcohol use: Never Drug use: Never Family History Family History Problem Relation Name Age of Onset Brain cancer Mother Other (arteriosclerotic cardiovascular disease) Father Allergies: Allergies Allergen Reactions Fentanyl Other stroke Outpatient Medications: Current Outpatient Medications Medication Instructions acetaminophen (TYLENOL) 325 mg, oral, TAKE 1 TABLET EVERY 4 TO 6 HOURS NEEDED. ascorbic acid-vitamin E-biotin (Hair, Skin, Nails with Biotin) 7.5-7.5-1,250 mg-unit-mcg tablet,chewable 1 tablet, oral, Daily atorvastatin (Lipitor) 40 mg tablet 1 tablet, oral, Daily calcium carbonate/vitamin D3 (CALCIUM 600 + D,3, ORAL) 600 mg, oral cholecalciferol (VITAMIN D-3) 2,000 Units, oral, Daily digoxin (Lanoxin) 125 MCG tablet On day 1 take: 4 tablets together for 1st dose then 4 hours later take 2 more tablets together then 4 hours later take another 2 tablets together, then take 1 tablet daily thereafter dilTIAZem CD (CARDIZEM CD) 180 mg, oral, Daily escitalopram (Lexapro) 10 mg tablet 1 tablet, oral, Daily furosemide (LASIX) 20 mg, oral, Daily magnesium oxide (MAG-OX) 400 mg, oral, Daily multivitamin (Daily Multi-Vitamin) tablet 1 tablet, oral, Daily pantoprazole (PROTONIX) 40 mg, oral, Daily, Do not crush, chew, or split. rivaroxaban (Xarelto) 15 mg tablet 1 tablet, oral, Nightly rOPINIRole (REQUIP) 1 mg, oral, Nightly sotalol (BETAPACE) 160 mg, oral, 2 times daily REVIEW OF SYSTEMS Review of Systems All other systems reviewed and are negative. VITALS Vitals: 04/17/24 1043 BP: 96/62 Pulse: 88 PHYSICAL EXAM Constitutional: Appearance: Healthy appearance. Not in distress. Neck: Vascular: No JVR. JVD normal. Pulmonary: Effort: Pulmonary effort is normal. Breath sounds: Normal breath sounds. No wheezing. No rhonchi. No rales. Chest: Chest wall: Not tender to palpatation. Cardiovascular: PMI at left midclavicular line. Normal rate. Irregularly irregular rhythm. Normal S1. Normal S2. Murmurs: There is no murmur. No gallop. No click. No rub. Comments: Device in the left prepectoral healing well. No signs of hematoma or infection. Pulses: Intact distal pulses. Edema: Peripheral edema absent. Abdominal: General: Bowel sounds are normal. Palpations: Abdomen is soft. Tenderness: There is no abdominal tenderness. Musculoskeletal: Normal range of motion. General: No tenderness. Skin: General: Skin is warm and dry. Neurological: General: No focal deficit present. Mental Status: Alert and oriented to person, place and time. ASSESSMENT AND PLAN Clinical impression 1. Shortness of breath, persistent 2. Paroxysmal persistent atrial fibrillation on high risk medication (sotalol) [...] patient and family member regarding episodes of chest pain or shortness of breath that most likely are not related with any cardiac issue. Her cardiac catheterization show same results that prior to procedure. Medical therapy was recommended. She was maintaining sinus rhythm during recent admission at [facility] for almost a day and a half and her symptoms were still the same. Her main complaint was abdominal pain and nausea. Also during this admissionshe was unable to tolerate food for at least a day. Patient needs a very close evaluation by GI service. She states that 4 years ago she was scoped and they were unable to pass the scope more into the stomach area. She did not have a clear diagnosis about this. Meantime from the arrhythmia standpoint she has recurrence of this arrhythmia. She is still in atrial flutter atypical. Looking at her records she tried amiodarone in the past but this medication wasdiscontinued for side effects. Is not clear for me what were the side effects due to this medication. She is willing to try again amiodarone. Will try to use this time for rate control. I have offered her a pulm vein isolation in the near future. Patient will discontinue sotalol this coming Sunday. No sotalol Sunday and Sunday and she will start amiodarone this coming Sunday at a dose of 200 mg twice a day for 7 days and then 200 mg daily.She will be seen my office very closely in the next 2 to 3 weeks. Get CMP and TSH every 6 months for high risk medication. Get complete PFTs annually for high risk medication. Follow device clinic as scheduled. Risk factor modification and lifestyle modification discussed with patient. Diet , exercise and hydration discussed with patient. I have personally review with patient during this office visit, laboratory data, echocardiogram results, stress test results, Holter-event monitor results prior and after the last electrophysiology visit. All questions has been answered. Please excuse any errors in grammar or translation related to this dictation. Voice recognition software was utilized to prepare this document. documented in this [facility] Work Phone: 1(495) 356-564008-29-2024 Instructions* Patient Instructions* Raysa Fermin MA - 04/17/2024 10:15 AM EDT TAKE SOTALOL UINTIL SUNDAY. NO SOTALOL ON SUNDAY AND SUNDAY START AMIODARONE 200 MG ON SUNDAY- TAKE 1 TABLET TWICE DAILY FOR ONE WEEK. THEN TAKE 1 TABLET THEREAFTER. HAVE LABS DONE BEFORE NEXT OFFICE VISIT (NON FASTING) [facility] Phone: [phone]) 609-208608-20-2024 Evaluation note* Diagnosis Onset Date Resolution Status Admit Date Acute on chronic heart failu re with preserved ejection fraction (HFpEF) acute April 08 3:40pm GERD (gastroesophageal reflu x disease) acute April 08 3:40pm Paroxysmal atrial fibrillation acute April 08, 2024 3:40pm Primary hypertension acute 2023 3:40pm Stage 3a chronic kidney disease acut e April 08, 2024 3:40pm Dyspepsia acute April 18, 024 10:03am GERD (gastroesophageal reflu x disease) acute April 18 10:03am Vomiting acute April 18, 024 10:03am Acute on chronic heart failu re with preserved ejection fraction (HFpEF) acute May 08, 2024 11:45am Chronic venous insufficiency of lower extremity acute May 08, 2024 11:45am GERD (gastroesophageal reflu x disease) acute May 08, 2024 11:45am Paroxysmal atrial fibrillation acute May 08, 2024 11:45am Primary hypertension acute Sept 2023 11:45am Stage 3a chronic kidney disease acut e May 08, 2024 11:45am Dyspepsia acute April 9:22am Esophageal dysmotility acute Se ptember 2023 9:22am GERD (gastroesophageal reflu x disease) acute May 19, 2024 9:22am Acute on chronic heart failu re with preserved ejection fraction (HFpEF) acute June 10 3:15pm Esophageal dysmotility acute Oc 2023 3:15pm GERD (gastroesophageal reflu x disease) acute June 10 3:15pm Paroxysmal atrial fibrillation acute June 10, 2024 3:15pm Primary hypertension acute Oct2023 3:15pm Stage 3a chronic kidney disease acut e June 10, 2024 3:15pm Acute electrocardiogram changes acut e June 30, 2024 5:45pm Chest pain acute June 30, 2024 5:45pm Elevated troponin acute Novembe r 2023 5:45pm [facility] Work Phone: [phone]) 853-290708-20-2024 Evaluation note* Diagnosis Onset Date Resolution Status Admit Date Acute on chronic heart failu re with preserved ejection fraction (HFpEF) acute April 08 3:40pm GERD (gastroesophageal reflu x disease) acute April 08 3:40pm Paroxysmal atrial fibrillation acute April 08, 2024 3:40pm Primary hypertension acute 2023 3:40pm Stage 3a chronic kidney disease acut e April 08, 2024 3:40pm Dyspepsia acute April 18, 2 024 10:03am GERD (gastroesophageal reflu x disease) acute April 18 10:03am Vomiting acute April 18, 2 024 10:03am Acute on chronic heart failu re with preserved ejection fraction (HFpEF) acute May 08, 2024 11:45am Chronic venous insufficiency of lower extremity acute May 08, 2024 11:45am GERD (gastroesophageal reflu x disease) acute May 08, 2024 11:45am Paroxysmal atrial fibrillation acute May 08, 2024 11:45am Primary hypertension acute Apr 11:45am Stage 3a chronic kidney disease acut e May 08, 2024 11:45am Dyspepsia acute April 9:22am Esophageal dysmotility acute Se ptember 2023 9:22am GERD (gastroesophageal reflu x disease) acute May 19, 2024 9:22am Acute on chronic heart failu re with preserved ejection fraction (HFpEF) acute June 10 3:15pm Esophageal dysmotility acute Oc 2023 3:15pm GERD (gastroesophageal reflu x disease) acute June 10 3:15pm Paroxysmal atrial fibrillation acute June 10, 2024 3:15pm Primary hypertension acute Octo 2023 3:15pm Stage 3a chronic kidney disease acut e June 10, 2024 3:15pm Acute electrocardiogram changes acut e June 30, 2024 5:45pm Chest pain acute June 30, 2024 5:45pm Chronic heart failure with preserved ejection fraction (HFpEF) acute June 30, 2 024 5:45pm Elevated troponin acute Novembe r 2023 5:45pm High risk medication use acute June 30, 2024 5:45pm Paroxysmal atrial fibrillation acute June 30, 2024 5:45pm [facility] Work Phone: 1([phone]) 385-171307-11-2024 History of Present illness Narrative* Maxwell Medrano MD - 02/28/2024 11:15 AM EDT CARDIOLOGY OFFICE VISIT CHIEF COMPLAINT Chief Complaint Patient presents with Follow-up HISTORY OF PRESENT ILLNESS HPI 83-year-old female with a past medical history of hypertension, hyperlipidemia. Patient had a long history of atrial fibrillation for which she started seeing [facility] since 2020 aftershe was hospitalized in [facility] for bradycardia. Adjustment of her medical therapy was performed with amiodarone at that time. 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 She was continue on amiodarone. This medication was discontinued at some point the beginning of 2022 due to long-termside effects. Initially she was placed on Tikosyn but Tikosyn produced QT prolongation and she was placed on sotalol therapy. Patient is being evaluated recently at [facility] for ablation therapy for atrial fibrillation. She also has a long history of shortness of breath but for the last 2 to 3 monthsshe has been having worsening episodes at a [...] and Xarelto therapy 50 mg 1 tablet daily.Patient had a dual-chamber pacemaker [employer] implanted in June 29, 2021. Patient had a cardiac catheterization in 2022 that shows mild coronary artery disease. Medical therapy was recommended. Patient states that she is still complaining of episodes of shortness of breath with moderate activities. Sometimes even with mild activity she is very tired and fatigued. She has at least 2 evaluations in outside hospital for atrial fibrillation with shortness of breath. The dose of sotalol was suggested. Currently she is using sotalol 120 mg 1 tablet twice a day. EKG performed today shows atrial flutter atypical at a rate of 95 bpm QRS duration 76 ms QT corrected 402 ms. Rhythm strip shows the same pattern. The device was interrogated today during this evaluation. Patient shows that she is in atypical flutter-atrial fibrillation. Atrial ATP was tried to be delivered with unsuccessful termination of thisarrhythmia. [place] of atrial fibrillation approximately 76% of the time with some episodes of rapid ventricular response. Past Medical History No past medical history on file. Social History Social History Tobacco Use Smoking status: Never Smokeless tobacco: Never Substance Use Topics Alcohol use: Never Drug use: Never Family History Family History Problem Relation Name Age of Onset Brain cancer Mother Other (arteriosclerotic cardiovascular disease) Father Allergies: Allergies Allergen Reactions Fentanyl Other stroke Sulfa (Sulfonamide Antibiotics) Unknown Outpatient Medications: Current Outpatient Medications Medication Instructions acetaminophen (TYLENOL) 325 mg, oral, TAKE 1 TABLET EVERY 4 TO 6 HOURS NEEDED. ascorbic acid-vitamin E-biotin (Hair, Skin, Nails with Biotin) 7.5-7.5-1,250 mg-unit-mcg tablet,chewable 1 tablet, oral, Daily atorvastatin (Lipitor) 40 mg tablet 1 tablet, oral, Daily calcium carbonate/vitamin D3 (CALCIUM 600 + D,3, ORAL) 600 mg, oral cholecalciferol (VITAMIN D3) 5,000 Units, oral, Daily dilTIAZem CD (CARDIZEM CD) 180 mg, oral, Daily escitalopram (Lexapro) 10 mg tablet 1 tablet, oral, Daily fluocinonide (Lidex) 0.05 % external solution Topical, 3 times daily furosemide (LASIX) 20 mg, oral, Daily HYDROcodone-acetaminophen (Peetz) 10-325 mg tablet 1 tablet, oral, Daily PRN multivitamin (Daily Multi-Vitamin) tablet 1 tablet, oral, Daily rivaroxaban (Xarelto) 15 mg tablet 1 tablet, oral, Nightly rOPINIRole (REQUIP) 1 mg, oral, Nightly sotalol (BETAPACE) 120 mg, oral, Every 12 hours sotalol (BETAPACE) 120 mg, oral, Daily REVIEW OF SYSTEMS Review of Systems All other systems reviewed and are negative. VITALS Vitals: 02/28/24 1147 BP: 110/78 Pulse: 95 PHYSICAL EXAM Constitutional: Appearance: Healthy appearance. Not in distress. Neck: Vascular: No JVR. JVD normal. Pulmonary: Effort: Pulmonary effort is normal. Breath sounds: Normal breath sounds. No wheezing. No rhonchi. No rales. Chest: Chest wall: Not tender to palpatation. Cardiovascular: PMI at left midclavicular line. Normal rate. Regular rhythm. Normal S1. Normal S2. Murmurs: There is no murmur. No gallop. No click. No rub. Comments: Device left pectoral area. No hematoma or infection noted. Pulses: Intact distal pulses. Edema: Peripheral edema absent. Abdominal: General: Bowel sounds are normal. Palpations: Abdomen is soft. Tenderness: There is no abdominal tenderness. Musculoskeletal: Normal range of motion. General: No tenderness. Skin: General: Skin is warm and dry. Neurological: General: No focal deficit present. Mental Status: Alert and oriented to person, place and time. ASSESSMENT AND PLAN Clinical impression 1. Shortness of breath, persistent 2. Paroxysmal persistent atrial fibrillation on high risk medication (sotalol) 3. Long-term anticoagulant therapy with Xarelto 4. Hypertension 5. Hyperlipidemia 6. Cardiomyopathy with a left ventricular ejection fraction 40% per echocardiogram August 2022 7. No evidence of ischemia per stress test in 2019 8. Tachybradycardia syndrome status post dual-chamber pacemaker implanted in 2020 Plan-recommendations I had an extensive discussion with patient and family member regarding plan to follow for management of atrial fibrillation. Current EKG shows atypical atrial flutter (most likely left-sided atrial flutter) also this arrhythmia may be associated with atrial fibrillation. We discussed the option of continuation of medical therapy including adjusting of antiarrhythmic therapy or changing into a different antiarrhythmic (amiodarone) versus pulmonary vein isolation. Procedure, risk, benefits and possible complications were explained to patient. All questions were answered. Patient agrees with plan. \ Patient will be scheduled for possible pulmonary isolation in the next few weeks. Meantime we will continue adjusting medical therapy for this arrhythmia. Patient was recently increased the dose of sotalol to 120 mg twice a day 3 days ago. She will continue on current dose. She will be seen my office in next 2 weeks. If she is still in persistent atrial fibrillation, we can try to increase the dose of sotalol to 160 mg twice a day. Follow device clinic as scheduled. Follow my office every 2 to 4 weeks or sooner if needed. Continue with high risk medication (sotalol). If sotalol cannot control her arrhythmia, we can change into amiodarone therapy. Risk factor modification and lifestyle modification discussed with patient. Diet , exercise and hydration discussed with patient.' I have personally review with patient during this office visit, laboratory data, echocardiogram results, stress test results, Holter-event monitor results prior and after the last electrophysiology visit. All questions has been answered. Please excuse any errors in grammar or translation related to this dictation. Voice recognition software was utilized to prepare this document. Scribe Attestation By signing my name below, I, Nesha Wilson LPN , [employer] attest that this documentation has been prepared under the direction and in the presence of Martín Medrano MD. documented in this [facility] Work Phone: [phone]) [phone] Instructions* Patient Instructions* Nesha Wilson LPN - 02/28/2024 11:15 AM EDT Did you know we have a retail pharmacy in the building and we can send your prescriptions there forpick up if you like! We typically can have prescriptions ready in 10 to 15 minutes! Dr. Medrano would like you to have a PVI-Pulmonary Vein Isolation. You can discuss this with your son. Let us know at next appointment with Dr. Medrano if you would like to proceed so we can help get you scheduled. Continue with Sotalol dose of 80 mg 1 1/2 tablets (120 mg) twice daily -Please bring all medicines, vitamins, and herbal supplements with you in original bottles to everyappointment!!!! -Prescriptions will not be filled unless you are compliant with your follow up appointments or havea follow up appointment scheduled as per instruction of your physician. Refills should be requestedat the time of your visit. documented in this [facility] Work Phone: [phone]) 551-385907-08-2024 History of Present illness Narrative* Debbie Mac MD - 02/25/2024 2:00 PM EDT Blaise Golden is a 83 y.o. female Chief Complaint Hospital Follow-up HPI Patient is here for follow-up continue management for atrial fibrillation/flutter. Since last time I saw her she was admitted to the hospital. She was seen by Dr. Richardson. Her antiarrhythmic were adjusted and left the hospital in sinus rhythm on sotalol 120 mg twice daily and diltiazem 180 mg daily. Unfortunately she seemed to have missed the instruction and continued with sotalol 80 twice daily.She reports significant shortness of breath and chest heaviness. She has underwent extensive evaluation in the past including heart cath last year which showed small diagonal disease medical therapy was recommended. Her echo showed normal LV systolic function. Today she is bitterly complaining of decreased exercise tolerance and dyspnea on exertion. She is in atrial flutter with 221 AV block. Sheappears symptomatic. Assessment 1. Persistent atrial flutter/fibrillation with clinical picture of tachybradycardia syndrome. She is status post permanent pacemaker implantation rremain in sinus rhythm. Amiodarone was discontinued because of concern about side effects. Tikosyn was ineffective of lower dose and resulted in prolonged QTc involving higher dose currently on sotalol and appears to be in and out of atrial fibrillation flutter today she looks like in a flutter. During recent hospitalization her sotalol was increasedto 120 twice daily but it is unclear whether she is taking that 2. Long-term anticoagulation with Xarelto which dose due to renal dysfunction 3. History of nephrolithiasis 4. Hypertension controlled 5. Hyperlipidemia with mild weight gain recently 6. Borderline overweight 7. Single-vessel coronary artery disease affecting small diagonal branch based on recent heart cath 8. Had complaint of recurrent nausea and vomiting she was diagnosed with esophageal stricture with concern liver cirrhosis followed by GI 9. Status post recent cholecystectomy without any cardiac issues 10. Chronic complaint of shortness of breath with previous presentation with volume overload. Symptoms have improved. Recent echo showed normal LV systolic function and minimally elevated pulmonary pressure Plan 1. I reviewed with patient treatment option. I continue sotalol 120 mg twice daily and to come backfor an EKG in few days if remain in flutter we will might consider cardioversion as a bridge until she see Dr. Medrano for evaluation for ablation. She has an appointment on April 07 and I did speak with him personally try to expedite her evaluation considering her symptoms 2. Risk, benefit and alternative anticoagulation reviewed patient understood and agreed 3. Follow-up in a few months 5. I reviewed her recent hospitalization with her Review of Systems Cardiovascular: Positive for dyspnea on exertion. All other systems reviewed and are negative. Vitals: 02/25/24 1427 BP: 118/80 BP Location: Left arm Patient Position: Sitting Pulse: 87 Weight: 69.3 kg (152 lb 12.8 oz) EKG done in office today Objective Physical Exam Constitutional: Appearance: Normal appearance. HENT: Nose: Nose normal. Neck: Vascular: No carotid bruit. Cardiovascular: Rate and Rhythm: Normal rate. Rhythm irregularly irregular. Pulses: Normal pulses. Heart sounds: Normal heart sounds. Pulmonary: Effort: Pulmonary effort is normal. Abdominal: General: Bowel sounds are normal. Palpations: Abdomen is soft. Musculoskeletal: General: Normal range of motion. Cervical back: Normal range of motion. Right lower leg: No edema. Left lower leg: No edema. Skin: General: Skin is warm and dry. Neurological: General: No focal deficit present. Mental Status: She is alert. Psychiatric: Mood and Affect: Mood normal. Behavior: Behavior normal. Thought Content: Thought content normal. Judgment: Judgment normal. Allergies Fentanyl and Sulfa (sulfonamide antibiotics) Current Medications Current Outpatient Medications: acetaminophen (Tylenol) [...] , Rfl: dilTIAZem CD (Cardizem CD) 180 mg 24 hr capsule, Take 1 capsule (180 mg) by mouth once daily., Disp: 30 capsule, Rfl: 11 escitalopram (Lexapro) 10 mg tablet, Take 1 tablet (10 mg) by mouth once daily., Disp: , Rfl: fluocinonide (Lidex) 0.05 % external solution, Apply topically 3 times a day., Disp: , Rfl: furosemide (Lasix) 20 mg tablet, Take 1 tablet (20 mg) by mouth once daily., Disp: , Rfl: HYDROcodone-acetaminophen (Peetz) 10-325 mg tablet, Take 1 tablet by [...] Rfl: sotalol (Betapace) 80 mg tablet, Take 1.5 tablets (120 mg) by mouth every 12 hours., Disp: 270 tablet, Rfl: 3 Assessment/Plan 1. Atrial flutter, unspecified type (Multi) 2. Persistent atrial fibrillation (Multi) ECG 12 Lead sotalol (Betapace) 80 mg tablet ECG 12 Lead 3. High risk medication use sotalol (Betapace) 80 mg tablet 4. Anticoagulated 5. Chronic diastolic heart failure (Multi) 6. Single vessel coronary artery disease 7. 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 (Multi) 8. Pacemaker 9. Essential hypertension, benign 10. Mixed hyperlipidemia 11. Gallstones 12. Stage 3a chronic kidney disease (Multi) 13. Shortness of breath 14. BMI 30.0-30.9,adult Scribe Attestation By signing my name below, Anju Brown LPN , Scribe attest that this documentation has been prepared under the direction and in the presence of MD Bo. Provider Attestation - Scribe documentation All medical record entries made by the Scribe were at my direction and personally dictated by me. Ihave reviewed the chart and agree that the record accurately reflects my personal performance of the history, physical exam, discussion and plan. documented [facility] Work Phone: 1([phone]) 168-314507-08-2024 Instructions* Patient Instructions* Anju Woods LPN - 02/25/2024 2:00 PM EDT Please bring all medicines, vitamins, and herbal supplements with you when you come to the office. Prescriptions will not be filled unless you are compliant with your follow up appointments or have a follow up appointment scheduled as per instruction of your physician. Refills should be requested at the time of your visit. Pacemaker/Defibrillator follow up per routine BMI was above normal measurement. Current weight: 69.3 kg (152 lb 12.8 oz) Weight change since last visit (-) denotes wt loss -0.2 lbs Weight loss needed to achieve BMI 25: Lbs Weight loss needed to achieve BMI 30: Lbs Provided instructions on dietary changes. * Attachments The following attachments cannot be sent through Care Everywhere. * Heart Healthy Diet (Australian) documented in this encounterOhio [facility] Work Phone: 1([phone]) 297-349506-04-2024 History of Present illness Narrative* Millie Sneed LPN - 01/22/2024 11:30 AM EDT Patient here for at EKG visit ordered by Dr. Mac due to a-fib. Dr. Dee in suite. Patienthere due to feeling out of rhythm. Medication list Updated with list . Some cardiac complaints, shortness of breath, weakness and fatigue. Discussed with Vannesa Davidson RN prior to discharge. To Dr. Mac for review. Vitals: 01/22/24 1246 BP: (!) 134/94 BP Location: Right arm Patient Position: Sitting Pulse: 71 Weight: 69.4 kg (153 lb) Height: 1.499 m (4' 11 ) documented in this [facility] Work Phone: 1(521) 421-928806-02-2024 Progress note Author Christopher Richardson [facility] January 20, 2024 1:46pm Note Date/Time January 20, 2024 1:46p m [facility] [address] [place] [address] Cardiology Progress Note Signed Patient: Austin Golden MR#: [id number] : 1940 Acct:[id number] Age/Sex: 83 / F Adm Date: 4 Loc: Room: [address] [place] [address] Type: ADM IN Attending Dr: Izzy Capps [...] this regimen Documented By: Christopher Richardson MD 1343 Signed By: <Electronically signed by MD Christopher Richardson> 01/20/24 1346 [facility] Work Phone: 1([phone]) 865-891006-01-2024 Progress note Author Izzy Capps [facility] January 19, 2024 6:48pm Note Date/Time January 19, 2024 5:02p m [facility] [address] [place] [address] Hospitalist Progress Note Signed Patient: Austin Golden MR#: [id number] : 1940 Acct:[id number] Age/Sex: 83 / F Adm Date: 4 Loc: Room: [address] [place] [address] Type: ADM IN Attending Dr: Izzy Capps [...] 1,000 Ml IV 01/17/25 15:29 75 mls/hr .[id number] KWAN Administration Diltiazem HCl 100 mg in [...] Plan Documented By: Izzy Capps MD 01/19/24 1657 Signed By: <Electronically signed by Izzy Capps MD> 01/19/24 0720 [facility] Work Phone: [phone] Consult note Author Christopher Richardson [facility] January 19, 2024 12:11pm Note Date/Time January 19, 2024 12:08 pm [facility] [address] [place] [address] Cardiology Consult Note Signed Patient: Austin Golden MR#: [id number] : 1940 Acct:[id number] Age/Sex: 83 / F Adm Date: 4 Loc: Room: [address] [place] [address] Type: ADM IN Attending Dr: Izzy Capps [...] no additional complaints, except as documented PMFSH Medical History Chronic heart failure with preserved [...] List clean-up per [facility] of Phys[facility] History of cardiac pacemaker in [...] List clean-up per request of Phys. [facility] Surgical History History of cholecystectomy [...] List clean-up per request of Phys. [facility] Family History Father Heart & renal disease, hypertensive, with heart fail/chron kidney dis Depression Sister Heart disease Mother Brain tumor Father Mother Social History Smoking Status: Never smoker Substance Use Type: None Substance Abuse Comment: etoh occasional Social History Comments: independent living at [facility] Medications and Allergies Allergies Sulfa (Sulfonamide [...] A 2,500 unit-vit C 100 mg-biotin 2,500 nkf-vnjx-chktdn capsule (Xjfw-Bhef-Rvom (vit A,T-htfuyf-Tf-Cu)) 1 cap PO DAILY 01/18/24 [History Confirmed [...] x10E3/uL Lymph # (Auto) 1.0 (1.00-4.8) x10E3/uL [place] # (Auto) 0.8 (0.0-0.8) x10E3/uL Eos # [...] 1000 ,000 ml @ 75 mls/hr IV .[id number] KWAN Rx#:[id number] dilTIAZem 100 MG -*NaCl* 100 mg 100 / 100 In 100 ml @ 5 MG/HR 5 mls/hr IV .Q20H KWAN Rx#:[id number] Oral 200 / 200 Other: # Voids 1 # Unmeasured Voids 1 # Bowel Movements 0 Weight 69.9 kg 69.7 kg Date of Last Bowel Movement 01/18/24 01/18/24 Patient Weight 01/19/24 23:59 Weight 69.7 kg Lab 01/18/24 15:40 PT 16.8 H INR 1.5 APTT 31.3 A&P - Cardiology (1) Atrial fibrillation with RVR: Assessment/Problem Details: Symptomatic. Believe the sikh of maintenance of sinus rhythm is of [...] responseto therapy Documented By: Christopher Richardson MD 1207 Signed By: <Electronically signed by MD Christopher Richardson> 01/19/24 1211 [facility] Work Phone: 1([phone]) 454-769406-01-2024 History and physical note Author Izzy Capps [facility] January 19, 2024 1:25am Note Date/Time January 18, 2024 8:45p m [facility] [address] [place] [address] Hospitalist H&P Signed Patient: Austin Golden MR#: [id number] : 1940 Acct:[id number] Age/Sex: 83 / F Adm Date: 4 Loc: Room: [address] [place] [address] Type: ADM IN Attending Dr: Izzy Capps [...] care Discussed with:?the medical team, the patient REPLACED BY [facility] Medical History Chronic heart failure with preserved [...] Social History Comments: independent living at the [facility] Medications and Allergies Allergies Sulfa (Sulfonamide Antibiotics) [...] A 2,500 unit-vit C 100 mg-biotin 2,500 qri-lera-xrdypq capsule (Qvvq-Hjya-Gbqp (vit A,K-qymosi-Az-Cu)) 1 cap PO DAILY 01/18/24 [History Confirmed [...] % (Auto) 9.2 % (.) 01/18/24 15:40 [place] % (Auto) 7.6 % (.) 01/18/24 15:40 Eos % (Auto) 1.2 % (.) 01/18/24 15:40 Baso % (Auto) 0.5 % (.) 01/18/24 15:40 Nucleat RBC Rel Count 0.1 /100 WBC (0-0.5) 01/18/24 15:40 Neut # (Auto) 8.5 x10E3/uL (1.8-7.7) H 01/18/24 15:40 Lymph # (Auto) 1.0 x10E3/uL (1.00-4.8) 01/18/24 15:40 [place] # (Auto) 0.8 x10E3/uL (0.0-0.8) 01/18/24 15:40 [...] <Electronically signed by Izzy Capps MD> 01/19/24 012 [facility] Work Phone: [phone] History of Present illness Narrative* Debbie Mac MD - 09/19/2023 1:00 PM EST Subjective Austin Golden is a 83 y.o. female Chief [...] mouth once daily., Disp: , Rfl: HYDROcodone-acetaminophen (Peetz) 10-325 mg tablet, Take 1 tablet by [...] vessel coronary artery disease [facility] Work Phone: [phone] Instructions* Patient Instructions* Maggy eVe LPN - 09/19/2023 1:00 PM EST Please [...] Maalox also. Pacemaker check [facility] Work Phone: [phone] History of Present illness Narrative* Debbie Mac [...] mouth once daily., Disp: , Rfl: HYDROcodone-acetaminophen (Peetz) 10-325 mg tablet, Take 1 tablet by [...] 11. Dyspnea, unspecified type documented in [facility] Work Phone: [phone]) 192-509710-12-2023 Instructions* Patient Instructions* Maggy Vee LPN - [...] time of your visit. documented in this [facility]Ohio [facility] Work Phone: [phone]) [phone] Evaluation note* Encounter Date Diagnosis Assessment Notes [...] are maintaining regular scheduled appts with their imposer. No bleeding complications Mar, Chronic heart failure [...] (ICD-10 - R06.02) Multifactorial but mostly deconditioning. [facility] w/o obstructive coronary disease Psat 98% [...] High risk medication use (ICD-10 - Z79.899) [facility] Other 04-10-2023 Consult note Author Debbie Mac [facility] November 27, 2022 11:58am Note Date/Time November 27, 2022 11: 48am [facility] [address] [place] [address] Cardiology Consult Note Signed Patient: Austin Golden MR#: [id number] : 1940 Acct:[id number] Age/Sex: 82 / F Adm Date: 3 Loc: [place] Room: Type: [facility] Attending Dr: Wilbur Watson DO Copies [...] function and a previous stress test in [place] that showed no evidence of myocardial ischemia. [...] Social History Comments: independent living at the [facility] Medications and Allergies Allergies fentanyl Allergy (Verified [...] <Electronically signed by MD Debbie Mac> 11/27/22 6198 [facility] Work Phone: 1(192) 399-408404-10-2023 Progress note Author Emmanuel Holland [facility] November 27, 2022 11:10am Note Date/Time November 27, 2022 11: 10am [facility] [address] [place] [address] Anesthesia Progress Note Signed Patient: Austin Golden MR#: [id number] : 1940 Acct:[id number] Age/Sex: 82 / F Adm Date: 3 Loc: [place] Room: Type: [facility] Attending Dr: Wilbur Watson DO Copies [...] surgery. Documented By: Emmanuel Holland Jr, MD 04/10/23 1 107 Signed By: <Electronically signed by Emmanuel Holland Jr, MD> 11/27/22 1110 [facility] Work Phone: [phone] Evaluation note* Encounter Date Diagnosis Assessment Notes Treatment Notes Treatment Clinical Notes Oct, Pulmonary nodule (ICD-10 - R91.1) CT chest: no nodules - 10/2022 [facility] Other 03-07-2023 Evaluation note* Encounter Date Diagnosis [...] verbalized understanding and agreement of tx plan. [facility] Other 02-02-2023 Discharge summary Author Katie Dukes [facility] September 21, 2022 3:33pm Note Date/Time September 21, 2022 3 :17pm [facility] [address] [place] [address] Discharge Summary Signed Patient: Austin Golden MR#: [id number] : 1940 Acct:[id number] Age/Sex: 82 / F Adm Date: 3 Loc: Room: [address] [place] [address]: Katie Dukes DO Copies to: DO Katie Carias DO~ Providers Date of Discharge: 09/21/22 Discharging Provider: Katie Dukes Primary Care Provider: Jazmin العلي Consults: 09/17/22 17:34 Consult to Cardiology [...] % (Auto) 68.2, Lymph % (Auto) 18.9, [place] % (Auto) 7.6, Eos % (Auto) 4.6, Baso % (Auto) 0.7, Nucleat RBC Rel Count 0.0, Neut # (Auto) 3.9, Lymph # (Auto) 1.1, [place] # (Auto) 0.4, Eos # (Auto) 0.3, [...] You are scheduled for an EKG at /[facility] Office on 09/27/2022 at 1:00pm Instructions: [...] MD [Active Staff] - 10/13/22 10:30 am Jazmin العلي DO [Primary Care Provider] - 09/25/22 10:30 am (You have been scheduled for a follow up appointment for the following date and time, please call to reschedule if needed. This appointment will be with Dr. Larios. ) Documented By: Katie Dukes DO 09/21/22 15 07 Signed By: <Electronically signed by Katie Dukes DO> 09/21/22 [facility] Work Phone: 1(980) 429-525002-02-2023 Progress note Author Debbie Mac [facility] September 21, 2022 9:48am Note Date/Time September 21, 2022 9 :45am [facility] [address] [place] [address] Cardiology Progress Note Signed Patient: Austin Golden MR#: [id number] : 1940 Acct:[id number] Age/Sex: 82 / F Adm Date: 3 Loc: Room: [address] [place] [address] Type: ADM IN Attending Dr: Katie Dukes DO Copies to: ~ Date of [...] % (Auto) 68.2 Lymph % (Auto) 18.9 [place] % (Auto) 7.6 Eos % (Auto) 4.6 Baso % (Auto) 0.7 Nucleat RBC Rel Count 0.0 Neut # (Auto) 3.9 Lymph # (Auto) 1.1 [place] # (Auto) 0.4 Eos # (Auto) 0.3 [...] signed by MD Debbie Mac> 09/21/22 0948 [facility] Work Phone: 1(648) 993-379202-01-2023 Progress note Author Katie Dukes [facility] September 20, 2022 3:21pm Note Date/Time September 20, 2022 3 :21pm [facility] [address] [place] [address] Hospitalist Progress Note Signed Patient: Austin Golden MR#: [id number] : 1940 Acct:[id number] Age/Sex: 82 / F Adm Date: 3 Loc: Room: [address] [place] [address] Type: ADM IN Attending Dr: Katie Dukes DO Copies to: ~ Date of [...] breath or recurrent syncopal episodes. Documented By: Katie Dukes DO 09/20/22 15 17 Signed By: <Electronically signed by Katie Dukes DO> 09/20/22 1521 [facility] Work Phone: [phone]) 544-511002-01-2023 History of Present illness Narrative* Austin Golden is an 82 y/o female referred by Dr Mac for evaluation of AF. * PMH includes HTN, HLD, HF, SSS s/p PPG implant, CKD, obesity and AF. * Treatment of her AF includes Amiodarone (d/c d for concerns of halfway side effects), tikosyn (prolonged OTc), sotalol and DCCV (09/2022). * Symptoms of her AF include fatigue and BRAY. * Pt follows with Dr Stover for management of her AF. Pt has previously been on Amio but was concerned about halfway side effects. She was then put on [...] @ 109 bpm * Echo 08/2022 ([facility]): LVEF 40%, moderate anteroseptal hypokinesis with wall motion suggestive of conduction abnormality, LA mildly dilated, trace MR & TR * Echo 06/2021: EF 45%, severe anteroseptal hypokinesis, mild-mod DD, LA mildly dilated, mild-mod MR,mild TR, mild-mod pHTN [facility] Work Phone: [phone]) [phone] History of Present illness Narrative* Austin Golden is an 82 y/o female referred by Dr Mac for evaluation of AF. * PMH includes HTN, HLD, HF, SSS s/p PPG implant, CKD, obesity and AF. * Treatment of her AF includes Amiodarone (d/c d for concerns of terminologist side effects), tikosyn (prolonged OTc), sotalol and DCCV (09/2022). * Symptoms of her AF include fatigue and BRAY. * Pt follows with Dr Stover for management of her AF. Pt has previously been on Amio but was concerned about halfway side effects. She was then put on [...] @ 109 bpm * Echo 08/2022 ([facility]): LVEF 40%, moderate anteroseptal hypokinesis with wall motion suggestive of conduction abnormality, LA mildly dilated, trace MR & TR * Echo 06/2021: EF 45%, severe anteroseptal hypokinesis, mild-mod DD, LA mildly dilated, mild-mod MR,mild TR, mild-mod pHTN AT-Lntrsuiwgq-PU[facility] [address] [place] Work Phone: 1([phone] 967-746202-01-2023 Progress note Author Debbie Mac [facility] September 20, 2022 9:04am Note Date/Time September 20, 2022 9 :03am [facility] [address] [place], [place] [address] Cardiology Progress Note Signed Patient: Austin Golden MR#: [id number] : 1940 Acct:[id number] Age/Sex: 82 / F Adm Date: 3 Loc: Room: [address] [place] [address] Type: ADM IN Attending Dr: Katie Dukes DO Copies to: ~ Date of [...] % (Auto) 65.4 Lymph % (Auto) 22.6 [place] % (Auto) 6.8 Eos % (Auto) 4.5 Baso % (Auto) 0.7 Nucleat RBC Rel Count 0.2 Neut # (Auto) 3.6 Lymph # (Auto) 1.2 [place] # (Auto) 0.4 Eos # (Auto) 0.2 [...] signed by MD Debbie Mac> 09/20/22 0904 [facility] Work Phone: 1([phone]) [phone] [facility]2023 Progress note Author Katie Dukes [facility] September 19, 2022 6:52pm Note Date/Time September 19, 2022 6 :52pm [facility] [address] [place] [address] Hospitalist Progress Note Signed Patient: Austin Golden MR#: [id number] : 1940 Acct:[id number] Age/Sex: 82 / F Adm Date: 3 Loc: Room: [address] [place] [address] Type: ADM IN Attending Dr: Katie Dukes DO Copies to: ~ Date of [...] neurologic phenomenon at this time. Documented By: Katie Dukes DO 09/19/22 18 51 Signed By: <Electronically signed by Katie Dukes DO> 09/19/22 1402 [facility] Work Phone: [phone] Progress note Author Debbie Mac [facility] September 19, 2022 9:57am Note Date/Time September 19, 2022 9 :57am [facility] [address] [place], [place] [address] Cardiology Progress Note Signed Patient: Austin Golden MR#: [id number] : 1940 Acct:[id number] Age/Sex: 82 / F Adm Date: 3 Loc: Room: [address] [place] [address] Type: ADM IN Attending Dr: Katie Dukes DO Copies to: ~ Date of [...] % (Auto) 68.4 Lymph % (Auto) 20.4 [place] % (Auto) 6.6 Eos % (Auto) 4.0 Baso % (Auto) 0.6 Nucleat RBC Rel Count 0.1 Neut # (Auto) 4.2 Lymph # (Auto) 1.2 [place] # (Auto) 0.4 Eos # (Auto) 0.2 [...] 3. Awaiting pacemaker check Documented By: Debbie aMc MD 09/19/22 0955 Signed By: <Electronically signed by MD Debbie Mac> 09/19/22 0957 [facility] Work Phone: 1([phone]) 320-158101-30-2023 Progress note Author Katie Dukes [facility] September 18, 2022 6:04pm Note Date/Time September 18, 2022 6 :04pm [facility] [address] [place] [address] Hospitalist Progress Note Signed Patient: Austin Golden MR#: [id number] : 1940 Acct:[id number] Age/Sex: 82 / F Adm Date: 3 Loc: 4 Room: [address] [place] [address] Type: ADM IN Attending Dr: Katie Dukes DO Copies to: ~ Date of [...] and electrolytes. Monitor on telemetry. Documented By: Katie Dukes DO 09/18/22 17 58 Signed By: <Electronically signed by Katie Dukes DO> 09/18/22 8394 [facility] Work Phone: 1([phone]) 187-643601-30-2023 Consult note Author Debbie Mac [facility] September 18, 2022 3:50pm Note Date/Time September 18, 2022 3 :39pm [facility] [address] [place] [address] Cardiology Consult Note Signed Patient: Austni Golden MR#: [id number] : 1940 Acct:[id number] Age/Sex: 82 / F Adm Date: 3 Loc: Room: [address] [place] [address] Type: ADM IN Attending Dr: Katie Dukes DO Copies to: DO Katie Carias DO Mourhaf A Traboulssi, MD~ Cardiology [...] test was 2 years ago back in [place] and was negative Review of Systems Review [...] Social History Comments: independent living at [facility] Medications and Allergies Allergies fentanyl Allergy [...] <Electronically signed by MD Debbie Mac> 09/18/22 7832 [facility] Work Phone: [phone] History and physical note Author Jay Ceja [facility] September 17, 2022 5:45pm Note Date/Time September 17, 2022 5 :45pm [facility] [address] [place] [address] Hospitalist H&P Signed Patient: Austin Golden MR#: [id number] : 1940 Acct:[id number] Age/Sex: 82 / F Adm Date: 3 Loc: Room: [address] [place] [address] Type: ADM IN Attending Dr: Jay Ceja DO Copies to: Jazmin العلي,DO Jay Ceja, DO~ HPI DATE OF [...] Social History Comments: independent living at the [facility] Medications and Allergies Allergies fentanyl Allergy (Verified [...] % (Auto) 15.2 % (.) 09/17/22 13:19 [place] % (Auto) 7.1 % (.) 09/17/22 13:19 Eos % (Auto) 3.5 % (.) 09/17/22 13:19 Baso % (Auto) 0.6 % (.) 09/17/22 13:19 Nucleat RBC Rel Count 0.3 /100 WBC (0-0.5) 09/17/22 13:19 Neut # (Auto) 5.9 x10E3/uL (1.8-7.7) 09/17/22 13:19 Lymph # (Auto) 1.2 x10E3/uL (1.00-4.8) 09/17/22 13:19 [place] # (Auto) 0.6 x10E3/uL (0.0-0.8) 09/17/22 13:19 [...] pH 5.5 (5.0-9.0) 09/17/22 13:19 Ur Specific [place] 1.024 (1.001-1.030) 09/17/22 13:19 Urine Protein Trace [...] signed by Jay Ceja DO> 09/17/22 1745 [facility] Work Phone: [phone] 199-578901-24-2023 Evaluation note* Encounter Date Diagnosis Assessment Notes Treatment Notes Treatment Clinical Notes Aug, Persistent atrial fibrillation (ICD-10 - I48.19) This patient is in NSR or rate controlled. This patient is anticoagulated to prevent thromboembolic events. They are maintaining regular scheduled appts with their imposer. Aug, Chronic heart failure with preserved ejection [...] use, the patient reduces the risk for UT, CVA, HTN, cardiac dysrhythmias and sudden cardiac [...] supplement, exercise w/ healthy diet. Symptoms tolerable [facility] Other 01-18-2023 Progress note Author Debbie Mac [facility] September 06, 2022 9:57am Note Date/Time September 06, 2022 9 :53am [facility] [address] [place] [address] Cardiology Progress Note Signed Patient: Austin Golden MR#: [id number] : 1940 Acct:[id number] Age/Sex: 81 / F Adm Date: 3 Loc: 4P Room: [address] [place] [address] Type: ADM IN Attending Dr: Anival Easton [...] signed by MD Debbie Mac> 09/06/22 0957 [facility] Work Phone: 1([phone]) [phone] Progress note Author Anival Easton [facility] September 05, 2022 6:18pm Note Date/Time September 05, 2022 3 :58pm [facility] [address] [place] [address] Hospitalist Progress Note Signed Patient: Austin Golden MR#: [id number] : 1940 Acct:[id number] Age/Sex: 81 / F Adm Date: 3 Loc: Room: [address] [place] [address] Type: ADM IN Attending Dr: Anival Easton [...] the plan of care and confirmed the VASCULAR SONOGRAPHER's note above. Plan of care reflects my direct input Documented By: MELY Jacob 3 1558 Signed By: <Electronically signed by MELY Haro> 09/05/22 1722 <Electronically signed by Aniavl Easton MD> 09/05/22 1818 [facility] Work Phone: 1(156) 472-523001-17-2023 Progress note Author Debbie Mac [facility] September 05, 2022 12:06pm Note Date/Time September 05, 2022 1 2:06pm [facility] [address] [place] [address] Cardiology Progress Note Signed Patient: Austin Golden MR#: [id number] : 1940 Acct:[id number] Age/Sex: 81 / F Adm Date: 3 Loc: Room: [address] [place] [address] Type: ADM IN Attending Dr: Anival Easton [...] % (Auto) 59.1 Lymph % (Auto) 25.6 [place] % (Auto) 9.7 Eos % (Auto) 4.7 Baso % (Auto) 0.9 Nucleat RBC Rel Count 0.2 Neut # (Auto) 3.3 Lymph # (Auto) 1.4 [place] # (Auto) 0.5 Eos # (Auto) 0.3 [...] on today Documented By: Debbie Mac MD 09/05/221204 Signed By: <Electronically signed by MD Debbie Mac> 09/05/22 1205 [facility] Work Phone: 1(359) 313-315901-17-2023 Progress note Author Anival Easton [facility] September 05, 2022 8:27am Note Date/Time September 04, 2022 2 :47pm [facility] [address] [place] [address] Hospitalist Progress Note Signed Patient: Austin Golden MR#: [id number] : 1940 Acct:[id number] Age/Sex: 81 / F Adm Date: 3 Loc: Room: [address] [place] [address] Type: ADM IN Attending Dr: Anival Easton [...] 2. Dysphagia?speech therapy, postrepair paraesophageal hiatal hernia [place] 2016 Attending attestation: Patient was personally seen by me on the day of encounter. I reviewed her history and performed shea elements of exam and formulated the plan of care and confirmed the nurse practitioner's note above. Documented By: MELY Jacob 3 1446 Signed By: <Electronically signed by RAY-ABI Haro> 09/04/221927 <Electronically signed by Anival Easton MD> 09/05/22 0827 [facility] Work Phone: 1(692) 368-889501-16-2023 Progress note Author Jimena Smith [facility] September 04, 2022 11:32am Note Date/Time September 04, 2022 1 1:32am [facility] [address] [place] [address] Cardiology Progress Note Signed Patient: Austin Golden MR#: [id number] : 1940 Acct:[id number] Age/Sex: 81 / F Adm Date: 3 Loc: Room: [address] [place] [address] Type: ADM IN Attending Dr: Anival Easton [...] % (Auto) 64.7 Lymph % (Auto) 22.7 [place] % (Auto) 7.6 Eos % (Auto) 4.3 Baso % (Auto) 0.7 Nucleat RBC Rel Count 0.2 Neut # (Auto) 4.3 Lymph # (Auto) 1.5 [place] # (Auto) 0.5 Eos # (Auto) 0.3 [...] pressure readings Documented By: Jimena Smith MD, [facility] 3 1129 Signed By: <Electronically signed by [facility] Jimena Smith> 09/04/22 1132 [facility] Work Phone: 1(201) 855-185301-15-2023 Progress note Author Jay Ceja [facility] September 03, 2022 1:12pm Note Date/Time September 03, 2022 1 :12pm [facility] [address] [place] [address] Hospitalist Progress Note Signed Patient: Austin Golden MR#: [id number] : 1940 Acct:[id number] Age/Sex: 81 / F Adm Date: 3 Loc: Room: [address] [place] [address] Type: ADM IN Attending Dr: Jay Ceja [...] problemsafter repair of a paraesophageal hiatal hernia [facility] and 2016. High-resolution CT scan of the [...] signed by Jay Ceja DO> 09/03/22 1312 [facility] Work Phone: 1(206) 440-396301-15-2023 Progress note Author Jimena Smith [facility] September 03, 2022 12:24pm Note Date/Time September 03, 2022 1 2:21pm [facility] [address] [place] [address] Cardiology Progress Note Signed Patient: Austin Golden MR#: [id number] : 1940 Acct:[id number] Age/Sex: 81 / F Adm Date: 3 Loc: Room: [address] [place] [address] Type: ADM IN Attending Dr: Jay Ceja DO Copies to: ~ Date of Service: 09/03/2022 Subjective Principal diagnosis: Dyspnea/atrial fibrillation with RVR Interval history: Ms. Golden is feeling better. Heart rate is better controlled. Tolerated Tikosyn with QTc interval in the therapeutic range. We will continue to monitoron drug loading with dofetilide. Continue Xarelto 15 mg daily. Continue beta-lealnd therapy. Exam Physical Exam Vital Signs: Temp [...] % (Auto) 68.3 Lymph % (Auto) 19.1 [place] % (Auto) 8.2 Eos % (Auto) 3.9 Baso % (Auto) 0.5 Nucleat RBC Rel Count 0.2 Neut # (Auto) 5.0 Lymph # (Auto) 1.4 [place] # (Auto) 0.6 Eos # (Auto) 0.3 [...] add spironolactone Documented By: Jimena Smith MD, [facility] 3 1220 Signed By: <Electronically signed by MD CLAUDIA Smith> 09/03/22 1224 [facility] Work Phone: 1([phone] 279-579801-14-2023 Consult note Author Jimena Smith [facility] September 02, 2022 2:58pm Note Date/Time September 02, 2022 2 :53pm [facility] [address] [place] [address] Cardiology Consult Note Signed Patient: Austin Golden MR#: [id number] : 1940 Acct:[id number] Age/Sex: 81 / F Adm Date: 3 Loc: Room: [address] [place] [address] Type: ADM IN Attending Dr: Jay Ceja DO Copies to: DO Jimena Carias MD, [facility] Jay Ceja DO~ Cardiology HPI History of [...] I covered above in HPI was unremarkable [facility] for [facility]?: No Medical History (Updated [...] Social History Comments: independent living [facility] Medications and Allergies Allergies fentanyl Allergy [...] cyanosis or edema Results Labs 09/02/22 08:16 01/14/23 08:16 Lab results: Cardiac Enzymes 09/02/22 Range/Units 08:16 B-Natriuretic Peptide 307.0 H (5-100) pg/mL CBC 09/02/22 Range/Units 08:16 RBC 4.97 (3.60-5.00) X10E6/uL Hgb 14.7 (11.8-15.4) g/dL Hct 45.0 (34.0-46.4) % Plt Count 179 (150-450) x10E3/uL Neut # (Auto) 4.5 (1.8-7.7) x10E3/uL Lymph # (Auto) 1.6 (1.00-4.8) x10E3/uL [place] # (Auto) 0.5 (0.0-0.8) x10E3/uL Eos # [...] ml @ 600 mls/hr IV BOLUS ONE Rx#:[id number] Amiodarone 360Mg-*D5w* 360 mg 200 / 200 200 / 400 200 / 400 In 200 ml @ 1 MG/MIN 33.333 mls /hr IV .Q6H [facility] Rx#:[id number] Oral 100 / 100 Other: # Voids [...] (primary) hypertension Documented By: Jimena Smith MD, [facility] 3 1452 Signed By: <Electronically signed by [facility] Jimena Smith> 09/02/22 1458 [facility] Work Phone: 1(226) 774-358701-14-2023 Progress note Author Jay Ceja [facility] September 02, 2022 2:42pm Note Date/Time September 02, 2022 1 :43pm [facility] [address] [place] [address] Hospitalist Progress Note Signed Patient: Austin Golden MR#: [id number] : 1940 Acct:[id number] Age/Sex: 81 / F Adm Date: 3 Loc: Room: [address] [place] [address] Type: ADM IN Attending Dr: Jay Ceja [...] signed by Jay Ceja DO> 09/02/22 1442 [facility] Work Phone: [phone]) 900-810801-13-2023 History and physical note Author Jay Ceja [facility] September 01, 2022 8:29pm Note Date/Time September 01, 2022 8 :29pm [facility] [address] [place] [address] Hospitalist H&P Signed Patient: Austin Golden MR#: [id number] : 1940 Acct:[id number] Age/Sex: 81 / F Adm Date: 3 Loc: ER Room: Type: [facility] ER Attending Dr: Copies to: Jazmin العلي,DO Luis Hogue, ~ HPI DATE OF [...] review all of the events in the business development consultant system. None of these are consistent with [...] Social History Comments: independent living at the [facility] Medications and Allergies Allergies fentanyl Allergy (Verified [...] wheezing. No focal crackles. Heart: On the business development consultant she has an irregularly irregular rhythm with [...] % (Auto) 13.9 % (.) 09/01/22 12:40 [place] % (Auto) 7.5 % (.) 09/01/22 12:40 Eos % (Auto) 4.1 % (.) 09/01/22 12:40 Baso % (Auto) 0.8 % (.) 09/01/22 12:40 Nucleat RBC Rel Count 0.1 /100 WBC (0-0.5) 09/01/22 12:40 Neut # (Auto) 5.9 x10E3/uL (1.8-7.7) 09/01/22 12:40 Lymph # (Auto) 1.1 x10E3/uL (1.00-4.8) 09/01/22 12:40 [place] # (Auto) 0.6 x10E3/uL (0.0-0.8) 09/01/22 12:40 [...] pH 5.5 (5.0-9.0) 09/01/22 13:32 Ur Specific [place] 1.022 (1.001-1.030) 09/01/22 13:32 Urine Protein 30 [...] <Electronically signed by Jay Ceja DO> 09/01/222028 [facility] Work Phone: [phone]) [phone] Evaluation note* Encounter Date Diagnosis Assessment Notes Treatment Notes Treatment Clinical Notes Apr, Cirrhosis (ICD-10 - K74.60) Apr, Vomiting (ICD-10 - R11.10) THIS IS 10 MINS ATER EATING AND UNDIGESTED FOODS. 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 PATIENT DID HAVE A MODIFIEDBARIUM SWALLOWNort [employer] Other 11-15-2021 Note [id number]#1.00CD:[address] [place] [address] 06-23-2021 [id number]:[facility] [place] [address] [place] Work Phone: 1(113) 676-174411-04-2021 [id number]:[facility] ECG Post Procedure [facility] [address] [place] Work Phone: 1(103) 886-387311-04-2021 [id number]:[facility] ECG Post Procedure [facility] [address] [place] Work Phone: 1([phone]) 531-978711-02-[address] [facility] COVID-19 FRMCNegative (Normal) Range:Negative Comments:Testing for SARS-CoV-2 by RT-PCR This test was developed and its performance characteristics determined by [employer] ([employer]) and validated at the [facility]. This test has not been FDA [...] the authorization is terminated or revoked sooner.PERFORMED BY:[place] [address] [place] [place] [phone] MEDICAL DIRECTORVITOR ZARATE M.D. [place] [address] [place] Work Phone: Comment on above:Testing for SARS-CoV-2 by RT-PCR This test was developed and its performance characteristics determined by [employer] (BD) and validated at the [facility]. This test has not been FDA [...] the authorization is terminated or revoked sooner.PERFORMED BY:[place] [address] [place] [id number] MEDICAL DIRECTORVITOR ZARATE M.D. 06-21-[address] [facility] [place] COVID-[address] [facility]egative (Normal)Range:Negative Comments:Testing for SARS-CoV-2 by RT-PCR This test was developed and its performance characteristics determined by [employer] (BD) and validated at the [facility]. This test has not been FDA [...] the authorization is terminated or revoked sooner.PERFORMED BY:[place] [address] [place], [place] [phone] MEDICAL DIRECTORVITOR ZARATE M.D. [address] Work Phone: Comment on above:Testing for SARS-CoV-2 by RT-PCR This test was developed and its performance characteristics determined by [employer] ([employer]) and validated at the [facility]. This test has not been FDA [...] the authorization is terminated or revoked sooner.PERFORMED BY:[place] [address] [address] [place] [phone] MEDICAL DIRECTORVITOR ZARATE M.D. 06-21-2021 NoteFR COVID-19 FRMCNegative (Normal)Range:Negative Comments:Testing for SARS-CoV-2 by RT-PCR This test was developed and its performance characteristics determined by [employer] (BD) and validated at the [facility]. This test has not been FDA [...] the authorization is terminated or revoked sooner.PERFORMED BY:[place] [address] [place], [place] [phone] MEDICAL DIRECTORVITOR ZARATE M.D. [address] Work Phone: Comment on above:Testing for SARS-CoV-2 by RT-PCR This test was developed and its performance characteristics determined by [employer] (BD) and validated at the [facility]. This test has not been FDA [...] the authorization is terminated or revoked sooner.PERFORMED BY:[place] [address] [place] [id number] MEDICAL DIRECTORVITOR ZARATE M.D. 06-21-2021 NoteFR COVID-[address] [facility]egative (Normal)Range:Negative Comments:Testing for SARS-CoV-2 by RT-PCR This test was developed and its performance characteristics determined by [employer] (BD) and validated at the [facility]. This test has not been FDA [...] the authorization is terminated or revoked sooner.PERFORMED BY:[place] [address] [place] [phone] MEDICAL DIRECTORVITOR ZARATE M.D. [address] Work Phone: Comment on above:Testing for SARS-CoV-2 by RT-PCR This test was developed and its performance characteristics determined by [employer] (BD) and validated at the [facility]. This test has not been FDA [...] the authorization is terminated or revoked sooner.PERFORMED BY:[place] [address] [place] [phone] MEDICAL DIRECTORVITOR ZARATE M.D. 06-21-2021 NoteFR COVID-[address] [facility]egative (Normal)Range:Negative Comments:Testing for SARS-CoV-2 by RT-PCR This test was developed and its performance characteristics determined by [employer] (BD) and validated at the [facility]. This test has not been FDA [...] the authorization is terminated or revoked sooner.PERFORMED BY:[place] [address] [address] [place] [phone] MEDICAL SUZETTE ZARATE M.D. [address] Work Phone: Comment on above:Testing for SARS-CoV-2 by RT-PCR This test was developed and its performance characteristics determined by [employer] (BD) and validated at the [facility]. This test has not been FDA [...] the authorization is terminated or revoked sooner.PERFORMED BY:[place] [address] [place] [place], [place] [phone] MEDICAL DIRECTORVITOR ZARATE M.D. 06-21-2021 NoteFR COVID-19 FRNegative (Normal)Range:Negative Comments:Testing for SARS-CoV-2 by RT-PCR This test was developed and its performance characteristics determined by [employer] ([employer]) and validated at the [facility]. This test has not been FDA [...] the authorization is terminated or revoked sooner.PERFORMED BY:[place] [address] [address] [place] [id number] MEDICAL DIRECTORVITOR ZARATE M.D. [address] Work Phone: Comment on above:Testing for SARS-CoV-2 by RT-PCR This test was developed and its performance characteristics determined by [employer] (BD) and validated at the [facility]. This test has not been FDA [...] the authorization is terminated or revoked sooner.PERFORMED BY:[place] [address] [place], [place] [phone] MEDICAL DIRECTORVITOR ZARATE M.D. 06-21-2021 NoteFR COVID-19 FRMCNegative (Normal)Range:Negative Comments:Testing for SARS-CoV-2 by RT-PCR This test was developed and its performance characteristics determined by [employer] ([employer]) and validated at the [facility]. This test has not been FDA [...] the authorization is terminated or revoked sooner.PERFORMED BY:[place] [address] [place], [place] [phone] MEDICAL DIRECTORVITOR ZARATE M.D. [facility] [address] DO Work Phone: Comment on above:Testing for SARS-CoV-2 by RT-PCR This test was developed and its performance characteristics determined by [employer] (BD) and validated at the [facility]. This test has not been FDA [...] the authorization is terminated or revoked sooner.PERFORMED BY:[address] [id number] MEDICAL DIRECTORVITOR ZARATE M.D. Chief complaint Narrative - ReportedAUSTIN GOLDEN is being seen for a cardiovascular evaluation of atrial fibrillation.PW-Gszpheanyy-Modlpx Work Phone: Chief complaint Narrative - ReportedJUDKevin GOLDEN is being seen for a cardiovascular evaluation of atrial fibrillation. FT-Jyodjtmyui-HMR [address] [place] Work Phone: Consult note Author Jimena Smith [facility] September 02, 2022 2:58pm Note Date/Time September 02, 2022 2 :53pm [facility] [address] [place] [address] Cardiology Consult Note Signed Patient: Austin Golden MR#: [id number] : 1940 Acct:[id number] Age/Sex: 81 / F Adm Date: 3 Loc: Room: 8B8042-9 Type: ADM IN Attending Dr: Jay Ceja DO Copies to: DO Jimena Carias MD, [facility] Jay Ceja DO~ Cardiology [facility] History of Present Illness Consult Date: 09/02/22 [...] I covered above in HPI was unremarkable REPLACED BY [facility] Vaccinated for COVID-19?: No Medical History (Updated [...] Social History Comments: independent living at the [facility] Medications and Allergies Allergies fentanyl Allergy [...] x10E3/uL Lymph # (Auto) 1.6 (1.00-4.8) x10E3/uL [place] # (Auto) 0.5 (0.0-0.8) x10E3/uL Eos # [...] ml @ 600 mls/hr IV [facility] ONE Rx#:[id number] Amiodarone 360Mg-*D5w* 360 mg 200 / 200 200 / 400 200 / 400 In 200 ml @ 1 MG/MIN 33.333 mls /hr IV .Q6H [facility] Rx#:[id number] Oral 100 / 100 Other: # Voids [...] (primary) hypertension Documented By: Jimena Smith MD, [facility] 3 1452 Signed By: <Electronically signed by [facility] Jimena Smith> 09/02/22 1458 [facility] Work Phone: Consult note Author W Kwasi Dee [facility] Note Date/Time July 01, 2024 11:50am [facility] [address] [place] [address] Cardiology Consult Note Signed Patient: Austin Golden MR#: [id number] : 1940 Acct:[id number] Age/Sex: 83 / F Adm Date: 4 Loc: 3T Room: 8G3921-8 Type: ADM IN Attending Dr: Shilpa Fenton MD Copies to: DO Shilpa Carias MD W Scott Sheldon, DO~ Cardiology HPI History of Present Illness Consult Date: 07/01/24 Reason for Consult: Exertional dyspnea, anxiety, HFpEF, paroxysmal A-fib HPI: Ms. Golden is a 83 year old female seen in cardiology consultation request the hospitalist in patient who presents with recurrent exertional dyspnea. She declines chest discomfort to me. Troponins are mildly elevated, initially at 101 and 85, and currently 92 (notably, she has chronic troponin elevation upon review of her EMR). Renal function is normal. Patient had recent heart catheterization performed earlier this year at [facility] revealing mild coronary disease and normal left ventricular function She has a history of heart failure with preserved ejection fraction, EF historically 55+ percent She has a history of paroxysmal atrial fibrillation, pacemaker, obstructive sleep apnea. She is very anxious in general, and his high anxiety presently in regards to her son's cancer diagnosis. She does not sleep well, spends most of the night up worrying about multiple things. Chest x-ray is clear with mild cardiomegaly and evidence of pacemaker, BNP is normal at 84, ECG reveals ventricular paced rhythm with underlying A-fib January of this past year she was admitted for pulmonary edema, atrial fibrillationwith RVR underwent successful cardioversion and diuresis. It appears that her atrial fibrillation (diastolic dysfunction) is recurrent, likely causative for her shortness of breath Recommendations: Escalate amiodarone to 400 daily, and repeat cardioversion REPLACED BY [facility] Medical History (Updated 07/01/24 @ 11:49 by Javed Dee DO) Dyspnea on exertion Problem List clean-up per request of Phys. EHR Cmte Anxiety High risk medication use Esophageal dysmotility Chronic venous insufficiency of lower extremity Dyspepsia Vomiting Acute on chronic heart failure with preserved ejection fraction (HFpEF) GERD (gastroesophageal reflux disease) Chronic heart failure with preserved ejection fraction (HFpEF) Echo: LVEF 55%, VALERIE, RVSP 21, normal RV size/function - 01/2024 Sick sinus syndrome Fibromyalgia Stage 3a chronic [...] Phys. EHR Cmte Surgical History History of repair of hiatal hernia (~2014) History of left heart catheterization (~03/2024) LHC: LAD 40-50%, diagonal 70%, RCA 40-50%, normal LVEF - 03/2024 History of cholecystectomy 2022 History of colonoscopy 2011 History of cardiac catheterization Problem List clean-up per request of Phys[facility] eye Problem List clean-up per request of Phys. EHR [facility] History of cataract surgery marybeth eye Problem List clean-up per request of Phys. EHR Cmte History of appendectomy Problem List clean-up per request of Phys. EHR [facility] History of tonsillectomy Problem List clean-up per request of Phys. EHR [facility] H/O foot surgery left Problem List clean-up per request of Phys. EHR Cmte History of hysterectomy Problem List clean-up per request of Phys. EHR [facility] Family History Father Heart & renal disease, hypertensive, with heart fail/chron kidney dis Depression Sister Heart disease Mother Brain tumor Father Mother Social History Smoking Status: Never smoker Substance Use Type: None Substance Abuse Comment: etoh occasional Social History Comments: independent living at [facility] Medications and Allergies Allergies No Known Allergies Allergy (Verified 06/30/24 13:38) Home Medications rivaroxaban 15 mg tablet (Xarelto) 15 mg PO HS 12/05/21 [History Confirmed 06/30/24] calcium carbonate (Calcium 600) 600 mg PO DAILY 01/18/24 [History Confirmed 06/30/24] acetaminophen 325 mg capsule 325 mg PO Q6HR PRN fever or pain 04/01/24 [History Confirmed 06/30/24] atorvastatin 40 mg tablet 40 mg PO DAILY #100 tabs 04/01/24 [Rx Confirmed 06/30/24] cholecalciferol (vitamin D3) 50 mcg (2,000 unit) capsule 50 mcg PO DAILY 04/01/24 [History Confirmed 06/30/24] diltiazem HCl 180 mg capsule,extended release 24 hr 180 mg PO DAILY #30 caps 04/01/24 [Rx Confirmed 06/30/24] multivitamin 1 tab PO DAILY 04/01/24 [History Confirmed 06/30/24] magnesium oxide 400 mg PO DAILY 04/08/24 [History Confirmed 06/30/24] pantoprazole 40 mg tablet,delayed release 40 mg PO BID 30 days #60 tabs 04/18/24[Rx Confirmed 06/30/24] amiodarone 200 mg tablet 200 mg PO DAILY 05/08/24 [History Confirmed 06/30/24] digoxin 125 mcg (0.125 mg) tablet 125 mcg PO Q OTHER DAY 05/28/24 [History Confirmed 06/30/24] furosemide 20 mg tablet 20 mg PO DAILY #30 tabs 05/28/24 [Rx Confirmed 06/30/24] ropinirole 1 mg tablet See Rx Instructions .Route .COMPLEX #90 tabs 06/09/24 [Rx Confirmed 06/30/24] bupropion HCl 300 mg 24 hr tablet, extended release 300 mg PO QAM 06/30/24 [History Confirmed 06/30/24] Exam Physical Exam Vital Signs: Temp Pulse Resp BP Pulse Ox O2 Del Method 97.6 F 97 18 128/75 96 Room Air 07/01/24 11:30 07/01/24 11:30 07/01/24 11:30 07/01/24 11:30 07/01/24 11:30 07/01/24 11:30 Const General: cooperative, well developed and in distress mild and respiratory Nutritional Appearance: average body habitus Orientation: alert, awake and oriented x3 HEENT Head: normal to inspection Neck Neck: normal visual inspection Chest Chest palpation & inspection: normal inspection of the chest Resp Effort & Inspection: normal respiratory effort Auscultation: clear to auscultation bilaterally Cardio Rate: regular rate Rhythm: abnormal rhythm Heart Sounds: S1 normal and S2 normal Bruits: no carotid bruits Pulses: radial pulses present GI Palpation: soft Skin General: no rashes or lesions noted Neuro General: patient alert, patient awake and patient oriented x3 Cognition: normal cognition Speech: speech normal Extrem General: no clubbing, cyanosis or edema Psych Mood: anxious mood Results - Cardiology Labs 07/01/24 06:40 07/01/24 06:40 Lab results: Cardiac Enzymes 06/30/24 Range/Units 15:04 AST 36 (13-39) U/L Total Creatine Kinase 43 (30-223) U/L B-Natriuretic Peptide 84.0 (5-100) pg/mL CBC 06/30/24 07/01/24 Range/Units 15:04 06:40 RBC 4.56 3.90 (3.60-5.00) X10E6/uL Hgb 14.3 12.4 (11.8-15.4) g/dL Hct 42.3 37.0 (34.0-46.4) % Plt Count 259 231 (150-450) x10E3/uL Neut # (Auto) 8.1 H 4.8 (1.8-7.7) x10E3/uL Lymph # (Auto) 1.4 1.4 (1.00-4.8) x10E3/uL [place] # (Auto) 0.6 0.5 (0.0-0.8) x10E3/uL Eos # (Auto) 0.2 0.2 (0.0-0.45) x10E3/uL Baso # (Auto) 0.1 0.1 (0.0-0.2) x10E3/uL Comprehensive Metabolic Panel 06/30/24 07/01/24 Range/Units 15:04 06:40 Sodium 140 140 (136-145) mmol/L Potassium 3.5 4.1 (3.5-5.1) mmol/L Chloride 99 105 (98-107) mmol/L Carbon Dioxide 27.6 26.1 (21.0-31.0) mmol/L BUN 25 24 (7-25) mg/dL Creatinine 1.28 H 1.12 (0.60-1.20) mg/dL Glucose 116 H 87 (70-100) mg/dL Calcium 9.2 8.2 L (8.6-10.3) mg/dL AST 36 (13-39) U/L ALT 31 (7-52) U/L Alkaline Phosphatase 66 (34-104) U/L Total Protein 6.7 (6.4-8.9) gm/dL Albumin 4.3 (3.5-5.7) gm/dL Intake and Output 06/30/24 07/01/24 07/01/24 23:59 07:59 15:59 Intake Total 250 / 250 Balance 250 / 250 Intake: Oral 250 / 250 Other: # Unmeasured Voids 4 # Bowel Movements 0 Weight 63.5 kg 65 kg Date of Last Bowel Movement 06/30/24 06/30/24 Patient Weight 07/01/24 23:59 Weight 65 kg Lab 06/30/24 15:04 PT 16.9 H INR 1.5 APTT 30.9 EKG Interpretations EKG EKG shows: atrial fibrillation A&P - Cardiology (1) Elevated troponin: Code(s): R79.89 - Other specified abnormal findings of blood chemistry (2) High risk medication use: Code(s): Z79.899 - Other terminologist (current) drug therapy (3) Chronic heart failure with preserved ejection fraction (HFpEF): Code(s): I50.32 - Chronic diastolic (congestive) heart failure (4) Paroxysmal atrial fibrillation: Code(s): I48.0 - Paroxysmal atrial fibrillation Plan Escalate amiodarone to 400 daily Proceed with elective cardioversion tomorrow No evidence of chest pain (mild coronary disease on March 2024 heart catheterization), with normal LV function Documented By: Javed Dee DO 07/01/24 1138 Signed By: <Electronically signed by Javed Dee DO> 07/01/24 1157 [facility] Work Phone: Discharge summary Author Izzy Capps [facility] January 20, 2024 3:42pm Note Date/Time January 20, 2024 2:55p m [facility] [address] [place] [address] Discharge Summary Signed Patient: Austin Golden MR#: [id number] : 1940 Acct:[id number] Age/Sex: 83 / F Adm Date: 4 Loc: Room: [address] [place] [address]: Izzy Capps MD Copies to: DO Izzy Carias MD~ Providers Date of Discharge: 01/20/24 Discharging Provider: Izzy Capps Primary Care Provider: Jazmin العلي Consults: * Christopher Richardson MD; Cardiology [...] 1 mg tablet 1 mg PO QHS [id number](vit A,C-biotin) 2,500 unit-100 mg-2,500 mcg capsule 1 [...] 30 Days Qty: 60 12RF Follow Up: [facility] [Provider Group] (Call office on Sunday to schedule follow-up with [facility]. ) Jazmin العلي DO [Primary Care Provider] - (Call [...] signed by Izzy Capps MD> 01/20/24 1542 [facility] Work Phone: Discharge [place] [phone] Discharge Summary Signed Patient: Austin Golden MR#: [id number] : 1940 Acct:[id number] Age/Sex: 83 / F Adm Date: 4 Loc: Room: [address] [place] [address]: Shilpa Fenton MD Copies to: DO Shilpa Carias MD~ Providers Date of Discharge: 07/03/24 Discharging Provider: Shilpa Fenton Primary Care Provider: Jazmin العلي Consults: 06/30/24 17:45 Consult to Cardiology Routine Comment: Consulting Provider: [employer] Reason For Exam: cp Has Provider Been Notified: Yes Date of Notification: 07/01/24 Time of Notification: 07:14 Consult to Occupational Therapy Routine Comment: Physician Instructions: Consult to OT for:: Evaluation and Treat Consult to Physical Therapy Routine Comment: Physician Instructions: Consult to PT for:: Evaluation and Treat Discharge Diagnosis (1) Elevated troponin: (2) High risk medication use: (3) Chronic heart failure with preserved ejection fraction (HFpEF): (4) Paroxysmal atrial fibrillation: Final Diagnosis Final Discharge Diagnosis: Shortness of breath due to suspected uncontrolled atrial fibrillation Paroxysmal atrial fibrillation, status post electrical cardioversion to paced atrium, recommended to continue amiodarone and Xarelto therapy Syncopal episode due to vasovagal event Chronic diastolic congestive heart failure, compensated Non-ST elevation UT type II Summary Hospital Course Hospital course: 83 years old female presented with exertional shortness of breath. Patient doeshave underlying history of paroxysmal atrial fibrillation, on Xarelto therapy and amiodarone therapy. On admission no signs of acute coronary syndrome nor congestive heart failure was noted. Suspected due to underlying atrial fibrillation. Cardiology evaluated the patient and recommended electrical cardioversion which was performed on July 02. After the procedure patient went to the bathroom and sustained a syncopal episode, suspected vasovagal associated with hypotension. No active signs of bleeding noted. Blood pressureimproved with hydration. Pacemaker interrogated. Eval done by cardiology. Patient remained in paced atrium. And on July 03 she was discharged home with recommendation to follow-up as outpatient. On the day of discharge she wassitting in the chair, she was feeling significantly better.She denies any dizziness any lightheadedness. She denies any shortness of breath she was [id number]% on room air at rest. Denies any chest pain any palpitations. Physical exam: General -awake, alert, oriented ?3, not in acute distress Cardiovascular -S1 with S2, no murmurs, no rubs, no gallops Pulmonary - clear to auscultation bilaterally Gastrointestinal - abdomen is soft, nondistended, nontender, bowel sounds positive, there is no rigidity, no rebound Extremities -no edema Neurological -no focal neurological dysfunction noted Laboratory work up and Imaging studies reviewed vice president of compliance - reviewed, after electrical cardioversion remained paced atrium EKG - personally reviewed by me The patient CARE and further plan was discussed with the patient. All questionsanswered. Patient expressed understanding and was discharged home in a stable condition. The patient was given written and verbal instructions. The recommendations were made to follow-up as outpatient within one week.The patientwas informed if his symptoms get worse to go back to emergency room or call his primary carephysician office. Time spent on the discharge day 35 min. Time Spent with Patient Time spent providing/coordinating discharge services (# min): 35 Discharge Plan Discharge Plan Patient Disposition: Home Activity: No Activity Restriction Diet: Low-Sodium Instructions: Cardioversion (DC), Amiodarone, Know your Meds Prescriptions: New amiodarone 200 mg Tablet 400 mg PO DAILY 30 Days Qty: 60 12RF Continued furosemide 20 mg tablet 20 mg PO DAILY Qty: 30 11RF ropinirole 1 mg tablet See Rx Instructions .ROUTE .COMPLEX Qty: 90 3RF Dose Instruction: TAKE 1 TABLET BY MOUTH EVERY NIGHT Rx Instructions: TAKE 1 TABLET BY MOUTH EVERY NIGHT Xarelto 15 mg tablet 15 mg PO HS Patient Comments: TAKE 1 TABLET BY MOUTH EVERYDAY AT BEDTIME calcium carbonate [Calcium 600] 600 mg calcium (1,500 mg) tablet 600 mg PO DAILY bupropion HCl 300 mg tablet extended release 24 hr 300 mg PO QAM acetaminophen 325 mg capsule 325 mg PO Q6HR PRN (Reason: fever or pain) atorvastatin 40 mg tablet 40 mg PO DAILY Qty: 100 3RF diltiazem HCl 180 mg capsule,extended release 24hr 180 mg PO DAILY Qty: 30 11RF multivitamin Tablet 1 tab PO DAILY cholecalciferol (vitamin D3) 50 mcg (2,000 unit) capsule 50 mcg PO DAILY magnesium oxide 400 mg magnesium tablet 400 mg PO DAILY pantoprazole 40 mg tablet,delayed release (DR/EC) 40 mg PO BID 30 Days Qty: 60 3RF Discontinued digoxin 125 mcg (0.125 mg) tablet 125 mcg PO Q OTHER DAY amiodarone 200 mg tablet 200 mg PO DAILY Follow Up: Debbie Mac MD [Active Staff] - 07/25/24 10:00 am Jazmin العلي DO [Primary Care Provider] - 07/09/24 3:00 pm (You have been scheduled for a follow up appointment for the following date and time, please call to reschedule if needed.) Exam Physical Exam Vital Signs: Temp Pulse Resp BP Pulse Ox O2 Del Method O2 Flow Rate 36.4 C 73 16 149/95 H 95 Room Air 2 07/03/24 08:00 07/03/24 12:00 07/03/24 12:00 07/03/24 12:00 07/03/24 12:00 07/03/24 12:00 07/03/24 08:00 Diagnostic Studies Completed and Pending Studies Labs on day of discharge: 07/03/24 06:27: Corrected WBC 9.8, Uncorrected WBC Count 9.8, RBC 3.76, Hgb 11.9, Hct 35.3, MCV 93.9, MCH 31.6, MCHC 33.7, RDW 14.3, Plt Count 227, MPV 8.7,Neut % (Auto) 80.9, Lymph % (Auto) 10.9, [place] % (Auto) 5.6, Eos % (Auto) 2.3, Baso % (Auto) 0.3, Nucleat RBC Rel Count 0.1, Neut # (Auto) 7.9 H, Lymph # (Auto) 1.1, [place] # (Auto) 0.5, Eos # (Auto) 0.2, Baso # (Auto) 0.0, PHA Creatinine Clear 36.26, Sodium 139, Potassium 3.6, Chloride 106, Carbon Dioxide 25.5, Anion Gap 11.1, BUN 23, Creatinine 1.07, Est GFR (CKD-EPI) 52.185, [id number] H, Calcium 8.3 L Documented By: Shilpa Fenton MD 07/03/241647 Signed By: 07/03/24 165 [facility] Note Date/Time July 03, 2024 4:51pm [facility] [address] [place] [address] Discharge Summary Signed Patient: Austin Golden MR#: [id number] : 1940 Acct:[id number] Age/Sex: 83 / F Adm Date: 4 Loc: Room: [address] [place] [address]: Shilpa Fenton MD Copies to: DO Shilpa Carias MD~ Providers Date of Discharge: 07/03/24 Discharging Provider: Shilpa Fenton Primary Care Provider: Jazmin العلي Consults: 06/30/24 17:45 Consult to Cardiology Routine Comment: Consulting Provider[facility] Reason For Exam: cp Has Provider Been Notified: Yes Date of Notification: 07/01/24 Time of Notification: 07:14 Consult to Occupational Therapy Routine Comment: Physician Instructions: Consult to OT for:: Evaluation and Treat Consult to Physical Therapy Routine Comment: Physician Instructions: Consult to PT for:: Evaluation and Treat Discharge Diagnosis (1) Elevated troponin: (2) High risk medication use: (3) Chronic heart failure with preserved ejection fraction (HFpEF): (4) Paroxysmal atrial fibrillation: Final Diagnosis Final Discharge Diagnosis: Shortness of breath due to suspected uncontrolled atrial fibrillation Paroxysmal atrial fibrillation, status post electrical cardioversion to paced atrium, recommended to continue amiodarone and Xarelto therapy Syncopal episode due to vasovagal event Chronic diastolic congestive heart failure, compensated Non-ST elevation UT type II Summary Hospital Course Hospital course: 83 years old female presented with exertional shortness of breath. Patient doeshave underlying history of paroxysmal atrial fibrillation, on Xarelto therapy and amiodarone therapy. On admission no signs of acute coronary syndrome nor congestive heart failure was noted. Suspected due to underlying atrial fibrillation. Cardiology evaluated the patient and recommended electrical cardioversion which was performed on July 02. After the procedure patient went to the bathroom and sustained a syncopal episode, suspected vasovagal associated with hypotension. No active signs of bleeding noted. Blood pressureimproved with hydration. Pacemaker interrogated. Eval done by cardiology. Patient remained in paced atrium. And on July 03 she was discharged home with recommendation to follow-up as outpatient. On the day of discharge she wassitting in the chair, she was feeling significantly better. She denies any dizziness any lightheadedness. She denies any shortness of breath she was saturating 95% on room air at rest. Denies any chest pain any palpitations. Physical exam: General -awake, alert, oriented ?3, not in acute distress Cardiovascular -S1 with S2, no murmurs, no rubs, no gallops Pulmonary - clear to auscultation bilaterally Gastrointestinal - abdomen is soft, nondistended, nontender, bowel sounds positive, there is no rigidity, no rebound Extremities -no edema Neurological -no focal neurological dysfunction noted Laboratory work up and Imaging studies reviewed vice president of compliance - reviewed, after electrical cardioversion remained paced atrium EKG - personally reviewed by me The patient CARE and further plan was discussed with the patient. All questionsanswered. Patient expressed understanding and was discharged home in a stable condition. The patient was given written and verbal instructions. The recommendations were made to follow-up as outpatient within one week.The patientwas informed if his symptoms get worse to go back to emergency room or call his primary care physician office. Time spent on the discharge day 35 min. Time Spent with Patient Time spent providing/coordinating discharge services (# min): 35 Discharge Plan Discharge Plan Patient Disposition: Home Activity: No Activity Restriction Diet: Low-Sodium Instructions: Cardioversion (DC), Amiodarone, Know your Meds Prescriptions: New amiodarone 200 mg Tablet 400 mg PO DAILY 30 Days Qty: 60 12RF Continued furosemide 20 mg tablet 20 mg PO DAILY Qty: 30 11RF ropinirole 1 mg tablet See Rx Instructions .ROUTE .COMPLEX Qty: 90 3RF Dose Instruction: TAKE 1 TABLET BY MOUTH EVERY NIGHT Rx Instructions: TAKE 1 TABLET BY MOUTH EVERY NIGHT Xarelto 15 mg tablet 15 mg PO HS Patient Comments: TAKE 1 TABLET BY MOUTH EVERYDAY AT BEDTIME calcium carbonate [Calcium 600] 600 mg calcium (1,500 mg) tablet 600 mg PO DAILY bupropion HCl 300 mg tablet extended release 24 hr 300 mg PO QAM acetaminophen 325 mg capsule 325 mg PO Q6HR PRN (Reason: fever or pain) atorvastatin 40 mg tablet 40 mg PO DAILY Qty: 100 3RF diltiazem HCl 180 mg capsule,extended release 24hr 180 mg PO DAILY Qty: 30 11RF multivitamin Tablet 1 tab PO DAILY cholecalciferol (vitamin D3) 50 mcg (2,000 unit) capsule 50 mcg PO DAILY magnesium oxide 400 mg magnesium tablet 400 mg PO DAILY pantoprazole 40 mg tablet,delayed release (DR/EC) 40 mg PO BID 30 Days Qty: 60 3RF Discontinued digoxin 125 mcg (0.125 mg) tablet 125 mcg PO Q OTHER DAY amiodarone 200 mg tablet 200 mg PO DAILY Follow Up: Debbie Mac MD [Active Staff] - 07/25/24 10:00 am Jazmin العلي DO [Primary Care Provider] - 07/09/24 3:00 pm (You have been scheduled for a follow up appointment for the following date and time, please call to reschedule if needed.) Exam Physical Exam Vital Signs: Temp Pulse Resp BP Pulse Ox O2 Del Method O2 Flow Rate 36.4 C 73 16 149/95 H 95 Room Air 2 07/03/24 08:00 07/03/24 12:00 07/03/24 12:00 07/03/24 12:00 07/03/24 12:00 07/03/24 12:00 07/03/24 08:00 Diagnostic Studies Completed and Pending Studies Labs on day of discharge: 07/03/24 06:27: Corrected WBC 9.8, Uncorrected WBC Count 9.8, RBC 3.76, Hgb 11.9, Hct 35.3, MCV 93.9, MCH 31.6, MCHC 33.7, RDW 14.3, Plt Count 227, MPV 8.7,Neut % (Auto) 80.9, Lymph % (Auto) 10.9, [place] % (Auto) 5.6, Eos % (Auto) 2.3, Baso % (Auto) 0.3, Nucleat RBC Rel Count 0.1, Neut # (Auto) 7.9 H, Lymph # (Auto) 1.1, [place] # (Auto) 0.5, Eos # (Auto) 0.2, Baso # (Auto) 0.0, PHA Creatinine Clear 36.26, Sodium 139, Potassium 3.6, Chloride 106, Carbon Dioxide 25.5, Anion Gap 11.1, BUN 23, Creatinine 1.07, Est GFR (CKD-EPI) 52.185, [id number] H, Calcium 8.3 L Documented By: Shilpa Fenton MD 07/03/24 1648 Signed By: <Electronically signed by hSilpa Fenton MD> 07/03/24 1651 [facility] Work Phone: Evaluation noteNo assessment information available [facility] Work Phone: [email or web address] noteNo InformationNort Celles Other Evaluation note* Diagnosis Onset Date Resolution Status Atrial fibrillation with rapid ventricular response acute CHF (congestive heart failure) acute Dysphagia acute Dyspnea on exertion acute Hypertension acute Sick sinus syndrome acute Ventricular tachycardia acut e Weakness acute [facility] Work Phone: Evaluation note* Diagnosis Onset Date Resolution Status Atrial fibrillation with rapid ventricular response acute CHF (congestive heart failure) acute Dysphagia acute Dyspnea on exertion acute HTN (hypertension), benign a cute Hypertension acute Left ventricular systolic dysfunction, NYHA class 2 acute Sick sinus syndrome acute Ventricular tachycardia acut e Weakness acute [facility] Work Phone: Evaluation note* Diagnosis Onset Date Resolution Status Atrial fibrillation with rapid ventricular response acute CHF (congestive heart failure) acute Dysphagia acute Dyspnea on exertion acute HTN (hypertension), benign a cute Hypertension acute Left ventricular systolic dysfunction, NYHA class 2 acute Sick sinus syndrome acute Ventricular tachycardia acut e Weakness acute Atrial fibrillation with rapid ventricular response acute Syncope acute [facility] Work Phone: evaluation note* Diagnosis Onset [...] dysfunction, NYHA class 2 acute Syncope acute [facility] Work Phone: Evaluation note* Diagnosis Onset [...] acute Syncope acute Atrial fibrillation, persistent acute [facility] Work Phone: Evaluation note* Diagnosis Onset Date Resolution Status Anticoagulated acute Atrial fibrillation with rapid ventricular response acute Dyspnea on exertion acute Hypertension acute Left ventricular systolic dysfunction, NYHA class 2 acute Syncope acute Atrial fibrillation, persistent acute [facility] Work Phone: Evaluation note* Diagnosis Persistent [...] Dyspnea, unspecified type documented in this encounter [facility] Work Phone: Evaluation note* Diagnosis Chronic diastolic heart failure (CMS/HCC) Chronic diastolic heart failure Essential hypertension, benign Dyspnea, unspecified type documented in this encounter [facility] Work Phone: Evaluation note* Diagnosis Chronic diastolic heart failure (CMS/HCC) Chronic diastolic heart failure Essential hypertension, benign Dyspnea, unspecified type documented in this encounter [facility] Work Phone: Evaluation note* Diagnosis Persistent atrial fibrillation (CMS/HCC)- Primary Atrial fibrillation 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) Chronic diastolic heart failure (CMS/HCC) Chronic diastolic heart failure Essential hypertension, benign Mixed hyperlipidemia Pacemaker Cardiac pacemaker in situ Sinus bradycardia Other specified cardiac dysrhythmias Single vessel coronary artery disease Coronary atherosclerosis of unspecified type of vessel, yuhaaviatam or graft documented in this encounter [facility] Work Phone: Evaluation note* Diagnosis Onset Date Resolution Status 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) acute Hypercholesterolemia acute Lumbar spondylosis acute Obstructive sleep apnea acut e Paroxysmal atrial fibrillation acute Primary hypertension acute Stage 3a chronic kidney disease acute [facility] Work Phone: Evaluation note* Diagnosis Onset [...] acute Stage 3a chronic kidney disease acute [facility] Work Phone: Evaluation note* Diagnosis Onset [...] hernia noneacti ve Nausea & vomiting noneactive [facility] Work Phone: Evaluation note* Diagnosis Onset [...] acute Hx of hiatal hernia noneacti ve [facility] Work Phone: Evaluation note* Diagnosis Onset [...] acute Hx of hiatal hernia noneacti ve Acute on chronic heart failu re with preserved ejection fraction (HFpEF) acute GERD (gastroesophageal reflux disease) acute Paroxysmal atrial fibrillation acute Primary hypertension acute Stage 3a chronic kidney disease acute [facility] Work Phone: Evaluation note* Diagnosis Onset [...] acute Hx of hiatal hernia noneacti ve Acute on chronic heart failu re with preserved ejection fraction (HFpEF) acute GERD (gastroesophageal reflux disease) acute Paroxysmal atrial fibrillation acute Primary hypertension acute Stage 3a chronic kidney disease acute Dyspepsia acute GERD (gastroesophageal reflux disease) acute Vomiting acute [facility] Work Phone: Evaluation note* Diagnosis Esophageal dysphagia- Primary Dysphagia, pharyngoesophageal phase [facility] Esophageal dysphagia- Primary Dysphagia, pharyngoesophageal phase [facility]* Diagnosis Pacemaker Cardiac pacemaker in situ Persistent atrial fibrillation (Multi) Atrial fibrillation Essential hypertension, benign Diastolic heart failure, unspecified HF chronicity High risk medication use BMI 28.0-28.9,adult 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 (Multi) Sinus bradycardia Other specified cardiac dysrhythmias Never smoked any substance documented in this encounter [facility] Work Phone: Evaluation note* Diagnosis Esophageal dysphagia Dysphagia, pharyngoesophageal phase [facility] Diagnosis Pacemaker Cardiac pacemaker in situ Persistent atrial fibrillation (Multi) Atrial fibrillation Essential hypertension, benign Diastolic heart failure, unspecified HF chronicity High risk medication use BMI 28.0-28.9,adult 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 (Multi) Sinus bradycardia Other specified cardiac dysrhythmias Never smoked any substance Anticoagulated Encounter for long-term (current) use of anticoagulants documented in this encounter [facility] Work Phone: Evaluation note* Diagnosis NO SHOW- Primary [facility] Diagnosis Atrial flutter, unspecified type (Multi)- Primary Persistent atrial fibrillation (Multi) Atrial fibrillation High risk medication use Anticoagulated Encounter for long-term (current) use of anticoagulants Chronic diastolic heart failure (Multi) Chronic diastolic heart failure Single vessel coronary artery disease Coronary atherosclerosis of unspecified type of vessel, yuhaaviatam or graft 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 (Multi) Pacemaker Cardiac pacemaker in situ Essential hypertension, benign Mixed hyperlipidemia Gallstones Calculus of gallbladder without mention of cholecystitis or obstruction Stage 3a chronic kidney disease (Multi) Shortness of breath BMI 30.0-30.9,adult documented in this encounter [facility] Work Phone: Evaluation note* Diagnosis High risk medication use- Primary Diastolic heart failure, unspecified HF chronicity (Multi) Abnormal EKG Nonspecific abnormal electrocardiogram (ECG) (EKG) Anticoagulation management encounter Encounter for therapeutic drug monitoring Longstanding persistent atrial fibrillation (Multi) Sinus bradycardia Other specified cardiac dysrhythmias Pacemaker Cardiac pacemaker in situ BMI 30.0-30.9,adult Never smoked tobacco documented in this encounter [facility] Work Phone: Evaluation note* Diagnosis High risk medication use- Primary Pacemaker Cardiac pacemaker in situ Anticoagulation management encounter Encounter for therapeutic drug monitoring Longstanding persistent atrial fibrillation (Multi) Sinus bradycardia Other specified cardiac dysrhythmias BMI 28.0-28.9,adult Never smoked any substance documented in this encounter [facility] Work Phone: Evaluation note* Diagnosis Atrial flutter, unspecified type (Multi)- Primary Essential hypertension, benign Chronic diastolic heart failure (Multi) Chronic diastolic heart failure Mixed hyperlipidemia Sinus bradycardia Other specified cardiac dysrhythmias Single vessel coronary artery disease Coronary atherosclerosis of unspecified type of vessel, yuhaaviatam or graft Anticoagulated Encounter for long-term (current) use of anticoagulants Shortness of breath Never smoked any substance BMI 28.0-28.9,adult documented in this encounter [facility] Work Phone: Evaluation note* Diagnosis Pacemaker- Primary Cardiac pacemaker in situ Persistent atrial fibrillation (Multi) Atrial fibrillation Essential hypertension, benign Diastolic heart failure, unspecified HF chronicity (Multi) High risk medication use BMI 28.0-28.9,adult 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 (Multi) Sinus bradycardia Other specified cardiac dysrhythmias Never smoked any substance documented in this encounter [facility] Work Phone: Evaluation note* Diagnosis Esophageal dysphagia- Primary Dysphagia, pharyngoesophageal phase [facility] Diagnosis Persistent atrial fibrillation (Multi)- Primary Atrial fibrillation Atrial flutter, unspecified type (Multi) High risk medication use Single vessel coronary artery disease Coronary atherosclerosis of unspecified type of vessel, yuhaaviatam or graft 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 (Multi) Pacemaker Cardiac pacemaker in situ Mixed hyperlipidemia Essential hypertension, benign Chronic diastolic heart failure Anticoagulated Encounter for long-term (current) use of anticoagulants BMI 28.0-28.9,adult Stage 3a chronic kidney disease (Multi) Shortness of breath Never smoked any substance documented in this encounter [facility] Work Phone: Evaluation note* Diagnosis Pacemaker Cardiac pacemaker in situ Sick sinus syndrome (Multi) Sinoatrial node dysfunction documented in this encounter [facility] Work Phone: Evaluation note* Diagnosis Pacemaker Cardiac pacemaker in situ Sick sinus syndrome (Multi) Sinoatrial node dysfunction Persistent atrial fibrillation (Multi) Atrial fibrillation High risk medication use 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 (Multi) Essential hypertension, benign Chronic diastolic heart failure BMI 27.0-27.9,adult Never smoked tobacco documented in this encounter [facility] Work Phone: Evaluation note* Diagnosis Esophageal dysphagia- Primary Dysphagia, pharyngoesophageal phase [facility] Diagnosis Hiatal hernia- Primary Diaphragmatic hernia without mention of obstruction or gangrene Hiatal hernia Diaphragmatic hernia without mention of obstruction or gangrene [facility] Diagnosis Diaphragmatic hernia without obstruction or gangrene- Primary Diaphragmatic hernia without mention of obstruction or gangrene Hiatal hernia Diaphragmatic hernia without mention of obstruction or gangrene Gastroesophageal reflux disease without esophagitis Esophageal reflux [facility] Diagnosis History of repair of hiatal hernia- Primary NO SHOW [facility] Diagnosis History of repair of hiatal hernia- Primary NO SHOW NO SHOW- Primary [facility]* Diagnosis History of repair of hiatal hernia- Primary [facility]* Diagnosis Pacemaker Cardiac pacemaker in situ documented in this encounter [facility] Work Phone: Evaluation note* Diagnosis Acquired deformity of left toe- Primary Acquired deformity of right toe Pain due to onychomycosis of toenails of both feet documented in this encounter [facility]* Diagnosis High risk medication use- Primary Essential hypertension, benign Pacemaker Cardiac pacemaker in situ Persistent atrial fibrillation (Multi) Atrial fibrillation Anticoagulated Encounter for long-term (current) use of anticoagulants Shortness of breath documented in this encounter [facility] Work Phone: Evaluation note* Diagnosis Cellulitis of left foot- Primary Pain due to onychomycosis of toenails of both feet Acquired deformity of left toe Acquired deformity of right toe Foot ulcer, left, with fat layer exposed (HCC) documented in this encounter [facility]Evaluation note* Diagnosis Persistent atrial fibrillation (Multi)- Primary Atrial fibrillation Pre-op testing Unspecified pre-operative examination Persistent atrial fibrillation (Multi) Atrial fibrillation documented in this encounter [facility] Work Phone: History and physical note Author Ángel Minaya [facility] Note Date/Time January 22, 2025 11:17 pm [facility] [address] [place] [address] Hospitalist H&P Signed Patient: Austin Golden MR#: [id number] : 1940 Acct:[id number] Age/Sex: 84 / F Adm Date: 5 Loc: ER Room: Type: [facility] ER Attending Dr: Copies to: MD Jazmin Connor DO Thomas D Kramer Jr, MD~ HPI DATE OF EXAMINATION: 01/22/25 CHIEF COMPLAINT: Shortness of breath HISTORY OF PRESENT ILLNESS: This is a 84-year-old female with significant past medical history of atrial fibrillation, CKD, coronary artery disease, anxiety, GERD, pulmonary hypertension, STONEY, hyperlipidemia, depression, hypertension, presented to [facility] ED with chief complaints of worsening shortness of breath for few days before presentation with fatigue and generalized weakness. Patient denies any fever or chills or chest pain or palpitation. In the ED she was found to be tachycardic with A-fib and RVR and was started on Cardizem drip. Lab work shows no leukocytosis normal hemoglobin around baseline, normal electrolytes potassium 3.9, normal creatinine, magnesium2.1, normal liver enzymes, BNP 192 and troponin of 15, chest x-ray-small pleuraleffusions EKG shows atrial fibrillation with RVR and left bundle branch block. Review of Systems Review of Systems All other systems reviewed & are negative unless noted below or in HPI REPLACED BY [facility] Medical History (Updated 01/22/25 @ 23:17 by Ángel Minaya MD) Cellulitis of left leg without foot Medicare annual wellness visit, subsequent Chronic kidney disease Atrial fibrillation Echo: LVEF 55%, VALERIE, normal RV size/function, RVSP - 01/2024, PFT: FEV1/FVC 71, TLV 93%, DLCO 59% - 09/2024 Atrial fibrillation with rapid ventricular response Acute kidney injury Elevated troponin Atypical chest pain Elevated troponin Esophageal obstruction ASHD (arteriosclerotic heart disease) LHC: LAD 40-50%, diagonal 70%, RCA 40-50% - 03/2024, Echo: LVEF 55%, VALERIE, normal RV size/function, RVSP - 01/2024 Dyspnea on exertion Problem List clean-up per request of Phys. EHR Cmte Anxiety High risk medication use Esophageal dysmotility Chronic venous insufficiency of lower extremity GERD (gastroesophageal reflux disease) Chronic heart failure with preserved ejection fraction (HFpEF) Echo: LVEF 55%, VALERIE, RVSP 21, normal RV size/function - 01/2024 Sick sinus syndrome Pulmonary nodule CT: no nodules detected - 10/2022, Primary hypertension Paroxysmal atrial fibrillation Osteopenia of [...] List clean-up [facility] request [facility] Phys[facility] History of repair of hiatal hernia (~2014) History of left heart catheterization (~03/2024) LHC: LAD 40-50%, diagonal 70%, RCA 40-50%, normal LVEF - 03/2024 History of cholecystectomy 2022 History of colonoscopy [...] Problem List clean-up per request of Phys. PEG Cmte Family History Father Heart & renal disease, hypertensive, with heart fail/chron kidney dis Depression Sister Heart disease Mother Brain tumor Father Mother Social History Smoking Status: Never smoker Substance Use Type: None Substance Abuse Comment: etoh occasional Social History Comments: independent living at [facility] Medications and Allergies Allergies No Known Allergies Allergy (Verified 01/22/25 18:15) Home Medications rivaroxaban 15 mg tablet (Xarelto) 15 mg PO HS 12/05/21 [History Confirmed 01/22/25] calcium carbonate (Calcium 600) 600 mg PO DAILY 01/18/24 [History Confirmed 01/22/25] acetaminophen 325 mg capsule 325 mg PO Q6HR PRN fever or pain 04/01/24 [History Confirmed 01/22/25] atorvastatin 40 mg tablet 40 mg PO DAILY #100 tabs 04/01/24 [Rx Confirmed 01/22/25] multivitamin 1 tab PO DAILY 04/01/24 [History Confirmed 01/22/25] magnesium oxide 400 mg PO DAILY 04/08/24 [History Confirmed 01/22/25] furosemide 20 mg tablet 20 mg PO DAILY #30 tabs 05/28/24 [Rx Confirmed 01/22/25] ropinirole 1 mg tablet See Rx Instructions .Route .COMPLEX #90 tabs 06/09/24 [Rx Confirmed 01/22/25] amiodarone 200 mg tablet 200 mg PO DAILY 09/10/24 [History Confirmed 01/22/25] diltiazem HCl 180 mg capsule,extended release 24 hr 180 mg PO DAILY #30 caps 09/17/24 [Rx Confirmed 01/22/25] duloxetine 30 mg capsule,delayed release 30 mg PO DAILY 30 days #30 caps 12/24/24 [Rx Confirmed 01/22/25] mupirocin 2 % topical ointment 1 applic topical BID 10 days #22 grams 01/13/25 [Rx Confirmed 01/22/25] doxycycline hyclate 100 mg capsule 100 mg PO BID 7 days #14 caps 01/21/25 [Rx Confirmed 01/22/25] Exam Physical Exam Vital Signs: Temp Pulse Resp BP Pulse Ox O2 Del Method O2 Flow Rate 97.7 F 118 H 20 136/72 94 L Nasal Cannula 2 01/22/25 18:17 01/22/25 21:56 01/22/25 21:56 01/22/25 21:56 01/22/25 22:07 01/22/25 22:07 01/22/25 22:07 Narrative: General: Awake alert, no acute distress HEENT: head atraumatic, normocephalic, moist mucous membranes Neck: supple no masses, no lymphadenopathy CVS: regular rate and rhythm, no murmurs or gallops Respiratory: clear to auscultation bilaterally, no wheezing or crackles, symmetric expansion GI: soft, nondistended, nontender, positive bowel sounds with no organomegaly Extremity: moves all extremities, no restrictions of movements, no calf tenderness Neuro: AOx3, CN II-VII intact. Moves all extremities in all planes of motion. Skin: intact no rashes or lesions Results - Hospitalist H&P Lab Results Labs: Laboratory Last Values Corrected WBC 7.8 X10E3/uL (3.8-11.6) 01/22/25 20:54 Uncorrected WBC Count 7.8 x10E3/uL (3.8-11.6) 01/22/25 20:54 RBC 4.31 x10E6/uL (3.60-5.00) 01/22/25 20:54 Hgb 13.3 g/dL (11.8-15.4) 01/22/25 20:54 Hct 38.5 % (34.0-46.4) 01/22/25 20:54 MCV 89.4 fl (80-100) 01/22/25 20:54 MCH 30.9 pg (24.7-34.3) 01/22/25 20:54 MCHC 34.6 g/dL (32.0-35.0) 01/22/25 20:54 RDW 14.4 % (11.9-15.3) 01/22/25 20:54 Plt Count 240 x10E3/uL (150-450) 01/22/25 20:54 MPV 8.6 fl (6.3-10.7) 01/22/25 20:54 Neut % (Auto) 70.7 % (.) 01/22/25 20:54 Lymph % (Auto) 17.7 % (.) 01/22/25 20:54 [place] % (Auto) 7.9 % (.) 01/22/25 20:54 Eos % (Auto) 2.5 % (.) 01/22/25 20:54 Baso % (Auto) 1.2 % (.) 01/22/25 20:54 Nucleat RBC Rel Count 0.2 /100 WBC (0-0.5) 01/22/25 20:54 Neut # (Auto) 5.5 x10E3/uL (1.8-7.7) 01/22/25 20:54 Lymph # (Auto) 1.4 x10E3/uL (1.00-4.8) 01/22/25 20:54 [place] # (Auto) 0.6 x10E3/uL (0.0-0.8) 01/22/25 20:54 Eos # (Auto) 0.2 x10E3/uL (0.0-0.45) 01/22/25 20:54 Baso # (Auto) 0.1 x10E3/uL (0.0-0.2) 01/22/25 20:54 Monocyte Dist Width 20.85 % (0.00-20.00) H 01/22/25 20:54 PT 13.9 Seconds (9.0-12.9) H 01/22/25 20:54 INR 1.2 01/22/25 20:54 APTT 32.2 Seconds (25.1-36.5) 01/22/25 20:54 PHA Creatinine Clear 30.77 01/22/25 20:54 Sodium 139 mmol/L (136-145) 01/22/25 20:54 Potassium 3.9 mmol/L (3.5-5.1) 01/22/25 20:54 Chloride 105 mmol/L (98-107) 01/22/25 20:54 Carbon Dioxide 25.7 mmol/L (21.0-31.0) 01/22/25 20:54 Anion Gap 12.2 mEq/L (6.0-15.0) 01/22/25 20:54 BUN 27 mg/dL (7-25) H 01/22/25 20:54 Creatinine 1.13 mg/dL (0.60-1.20) 01/22/25 20:54 Est GFR (CKD-EPI) 48.575 mL/Min 01/22/25 20:54 Glucose 103 mg/dL (70-100) H 01/22/25 20:54 Calcium 9.2 mg/dL (8.6-10.3) 01/22/25 20:54 Magnesium 2.1 mg/dL (1.9-2.7) 01/22/25 20:54 Total Bilirubin 1.2 mg/dl (0.3-1.0) H 01/22/25 20:54 AST 23 U/L (13-39) 01/22/25 20:54 ALT 19 U/L (7-52) 01/22/25 20:54 Alkaline Phosphatase 87 U/L (34-104) 01/22/25 20:54 Total Creatine Kinase 41 U/L (30-223) 01/22/25 20:54 Troponin I High Sens 15 ng/L (0-15) 01/22/25 20:54 B-Natriuretic Peptide 192.0 pg/mL (5-100) H 01/22/25 20:54 Total Protein 6.9 gm/dL (6.4-8.9) 01/22/25 20:54 Albumin 4.0 gm/dL (3.5-5.7) 01/22/25 20:54 Globulin 2.9 gm/dL 01/22/25 20:54 Albumin/Globulin Ratio 1.4 01/22/25 20:54 Assessment & Plan Assessment/Plan (1) Atrial fibrillation with rapid ventricular response: Plan This is a 84-year-old female with significant past medical history of atrial fibrillation, CKD, coronary artery disease, anxiety, GERD, pulmonary hypertension, STONEY, hyperlipidemia, depression, hypertension, presented to [facility] ED with chief complaints of worsening shortness of breath for few days before presentation with fatigue and generalized weakness. Patient denies any fever or chills or chest pain or palpitation. In the ED she was found to be tachycardic with A-fib and RVR and was started on Cardizem drip. Lab work shows no leukocytosis normal hemoglobin around baseline, normal electrolytes potassium 3.9, normal creatinine, magnesium2.1, normal liver enzymes, BNP 192 and troponin of 15, chest x-ray-small pleuraleffusions EKG shows atrial fibrillation with RVR and left bundle branch block. Patient got Percocet, ropinirole and Lasix in the ED and was started on Cardizemdrip. Plan: - Admit in the regular nursing floor - Continue on Cardizem drip - Continue p.o. meds - . Follow morning labs - Heartedly diet - Follow-up urine tox - Full code IP vs OBS Justification Based on differential dx, clinical care plan, and risk of adverse events, if untreated, in my clinical judgement this patient requires an acute care setting as: INPATIENT because of an expectation of an over 2 midnight stay. Estimated length of stay (# of days): 4 Documented By: Ángel Minaya MD 01/22/25 2307 Signed By: <Electronically signed by Ángel Minaya MD> 01/22/25 [id number] [facility] Work Phone: History general Narrative - [...] no history of trauma and substance abuse [employer] Other [employer] general Narrative - Reported* Type Description Date [...] substance abuse Hospitalization History SEE SURGICAL HX [employer] Other History general Narrative - Reported* Type [...] and substance abuse Hospitalization History SEE SURGICAL [employer] Other History of Present illness Narrative* Patient [...] testing * 6. Follow-up with pacemaker clinic [facility] DO Work Phone: History of Present illness [...] the above has been addressed by her mill representative Dr. Mota. She reports she underwent esophageal [...] exercise and try to lose some weight -[facility] DO Work Phone: History of Present [...] I reviewed her pacemaker check with her -[facility] DO Work Phone: History of Present [...] advised her to restrict her salt intake [employer] Work Phone: History of Present illness Narrative* [...] advised her to restrict her salt intake [employer] Work Phone: History of Present illness Narrative* [...] advised her to restrict her salt intake [facility] Work Phone: History of Present illness Narrative* Joseph Allred Mu, DPM - 04/30/2025 4:50 PM EDT Patient: Austin Golden : 1940 PCP: Jazmin العلي, DO SUBJECTIVE This is a 84 y.o. [...] by mouth Daily, Disp: , Rfl: HYDROcodone-acetaminophen (Peetz) 10-325 MG tablet, 1 tablet, Disp: , [...] Resource Strain: Low Risk (03/21/2024) Received from [facility] Overall Financial Resource Strain (CARDIA) Difficulty of Paying Living Expenses: Not hard at all Food Insecurity: Not on file Transportation Needs: No Transportation Needs (03/24/2024) Received from [facility] PRAPARE - Transportation Lack of Transportation (Medical): No Lack of Transportation (Non-Medical): No Physical Activity: Not on file Stress: Not on file Social Connections: Not on file Intimate Partner Violence: Unknown (02/14/2024) Received from [facility] [place] [facility] Fear of Current or Ex-Partner: Not on file Emotionally Abused: Not on file Physically Abused: Not on file Sexually Abused: Not on file Physically or Sexually Abused: Not on file Housing Stability: Low Risk (03/21/2024) Received from [facility] Housing Stability Vital Sign Unable to [...] if condition worsen to contact Podiatry Joseph Sepulveda DPM [facility] Additional Instructions Speech therapy recommendations: *Take pills whole with water *Sit upright at 90 degrees during all oral intake *Sit upright for 30 minutes after meals and snacks Dietitian recommendations: *Boost plus, 1 container, [facility] Work Phone: Hospital Discharge instructions Additional Instructions You are scheduled for an EKG at /[facility] Office on 09/27/2022 at 1:00pm [facility] Work Phone: Progress note Author Jay Ceja [facility] September 02, 2022 2:42pm Note Date/Time September 02, 2022 1 :43pm [facility] [address] [place] [address] Hospitalist Progress Note Signed Patient: Austin Golden MR#: [id number] : 1940 Acct:[id number] Age/Sex: 81 / F Adm Date: 3 Loc: Room: [address] [place] [address] Type: ADM IN Attending Dr: Jay Ceja [...] signed by Jay Ceja DO> 09/02/22 1442 [facility] Work Phone: Progress note Author Shilpa Fenton [facility] Note Date/Time July 01, 2024 3:17pm [facility] [address] [place] [address] Hospitalist Progress Note Signed Patient: Austin Golden MR#: [id number] : 1940 Acct:[id number] Age/Sex: 83 / F Adm Date: 4 Loc: Room: [address] [place] [address] Type: ADM IN Attending Dr: Shilpa Fenton MD Copies to: ~ Date of Service: 07/01/2024 Subjective Subjective Narrative: Patient has been seen and examined today. She still complains of shortness of breath, however she is saturating 96% on room air, denies any chest pain Physical exam: General -awake, alert, oriented ?3, not in acute distress Cardiovascular -S1 with S2, regular rate Pulmonary - clear to auscultation bilaterally Gastrointestinal - abdomen is soft, nondistended, nontender, bowel sounds positive, there is no rigidity, no rebound Extremities -no edema Neurological -no focal neurological dysfunction noted Laboratory work up and Imaging studies reviewed vice president of compliance - reviewed, remains in atrial fibrillation but intermittently paced ventricular EKG - personally reviewed by me Exam Physical Exam Vital Signs: Temp Pulse Resp BP Pulse Ox O2 Del Method 36.4 C 97 18 128/75 96 Room Air 07/01/24 11:30 07/01/24 11:30 07/01/24 11:30 07/01/24 11:30 07/01/24 11:30 07/01/24 11:30 Objective Lab Results 07/01/24 06:40 07/01/24 06:40 Meds Allergies and Active Meds Allergies No Known Allergies Allergy (Verified 06/30/24 13:38) Active Meds: Active Medications Generic Name Dose Route Start Last Admin Trade Name Freq PRN Reason Stop Dose Admin Acetaminophen 650 mg 06/30/24 17:44 07/01/24 09:02 Acetaminophen 325 Mg Tablet PO 06/30/25 17:43 650 mg Q4H PRN Administration Pain Scale 1 - 5 Albuterol 2.5 mg 06/30/24 17:44 Albuterol Neb 2.5 Mg/3 Ml Vial.Neb INHALATION 06/30/25 17:43 Q2H PRN Shortness Of Breath Amiodarone HCl 400 mg 07/02/24 09:00 Amiodarone 200 Mg Tablet PO 07/02/25 08:59 DAILY KWAN Atorvastatin Calcium 40 mg 07/01/24 09:00 07/01/24 09:01 Atorvastatin 40 Mg Tablet PO 07/01/25 08:59 40 mg DAILY KWAN Administration Atropine Sulfate 1 mg 07/02/24 09:30 Atropine Sulfate 1 Mg/10 Ml Syringe IV-PUSH ONCE PRN Bradycardia Bupropion HCl 300 mg 07/01/24 09:00 07/01/24 09:01 Bupropion 300 Mg Tab.Er.24h PO 07/01/25 08:59 300 mg QAM KWAN Administration Diltiazem HCl 180 mg 07/01/24 09:00 07/01/24 09:01 Diltiazem Cd.24hr 180 Mg Cap.Er.24h PO 07/01/25 08:59 180 mg DAILY KWAN Administration Docusate Sodium 200 mg 06/30/24 17:44 Docusate 100 Mg Capsule PO 06/30/25 17:43 BID PRN Constipation Hydralazine HCl 10 mg 06/30/24 17:44 Hydralazine 20 Mg/Ml Vial IV-PUSH 06/30/25 17:43 Q4H PRN if SBP > 185 Pantoprazole Sodium 40 mg 06/30/24 21:00 07/01/24 09:01 Pantoprazole 40 Mg Tablet.Dr PO 06/30/25 20:59 40 mg BID KWAN Administration Potassium Chloride 40 meq 07/02/24 07:00 Potassium Chloride Er 20 Meq Tab.Er.Prt PO STAT PRN Hypokalemia Propofol 0 mg 07/02/24 09:30 Propofol 200 Mg/20 Ml Vial IV-PUSH 07/02/24 09:31 ONCE ONE Rivaroxaban 15 mg 07/01/24 22:00 Rivaroxaban 15 Mg Tablet PO 07/01/25 21:59 HS KWAN Ropinirole HCl 1 mg 06/30/24 22:00 06/30/24 21:46 Ropinirole 1 Mg Tablet PO 06/30/25 21:59 1 mg QHS KWAN Administration Sodium Chloride 0 ml 06/30/24 13:38 06/30/24 15:09 Sodium Chloride 0.9 % 10 Ml Syringe IV-PUSH 06/30/25 13:37 10 ml PRN PRN Administration Flush Sodium Chloride 0 ml 07/01/24 12:05 Sodium Chloride 0.9 % 10 Ml Syringe IV-PUSH 07/01/25 12:04 PRN PRN Flush Triamcinolone Acetonide 1 applic 07/02/24 09:30 Triamcinolone 0.1% Cream 15 Gm Tube TOPICAL 07/02/24 09:31 ONCE ONE A&P - Hospitalist Assessment/Plan (1) Elevated troponin: Plan 1. Shortness of breath, of unclear etiology, patient does not like to be in congestive heart failure, unlikely PE as the patient is already anticoagulated, rule out acute coronary syndrome Troponins elevated, EKG nonischemic, denies any chest pain Interrogated pacemaker Could be related due to atrial fibrillation, plan for cardioversion in a.m. 2. Atrial fibrillation, patient takes amiodarone, she is in atrial fibrillation, Plan for cardioversion in a.m. 3. Chronic kidney disease stage III, creatinine stable Documented By: Shilpa Fenton MD 07/01/24 1177 Signed By: <Electronically signed by Shilpa Fenton MD> 07/01/24 1215 [facility] Work Phone: Progress note Author Shilpa Fenton [facility] Note Date/Time July 02, 2024 1:06pm [facility] [address] [place] [address] Hospitalist Progress Note Signed Patient: Austin Golden MR#: [id number] : 1940 Acct:[id number] Age/Sex: 83 / F Adm Date: 4 Loc: Room: [address] [place] [address] Type: ADM IN Attending Dr: Shilpa Fenton MD Copies to: ~ Date of Service: 07/02/2024 Subjective Subjective Narrative: Patient has been seen and examined today. Patient underwent cardioversion this morning. After she came back she went to the bathroom and sustained a syncopal episode, that time blood pressure was noted to be systolic in 90s, which improved after IV hydration I did examine the patient. She still complains of shortness of breath but no chest pain no dizziness no palpitations Physical exam: General -awake, alert, oriented ?3, not in acute distress, appears to be weak Cardiovascular -S1 with S2, regular rate Pulmonary - clear to auscultation bilaterally Gastrointestinal - abdomen is soft, nondistended, nontender, bowel sounds positive, there is no rigidity, no rebound Extremities -no edema Neurological -no focal neurological dysfunction noted Laboratory work up and Imaging studies reviewed vice president of compliance - reviewed, remains in atrial fibrillation but intermittently paced ventricular EKG - p repeated, paced atrium Exam Physical Exam Vital Signs: Temp Pulse Resp BP Pulse Ox O2 Del Method O2 Flow Rate 36.6 C 70 18 118/70 97 Nasal Cannula 3 07/02/24 07:35 07/02/24 12:49 07/02/24 12:49 07/02/24 12:49 07/02/24 12:49 07/02/24 12:49 07/02/24 12:49 Objective Lab Results 07/02/24 11:55 07/02/24 11:55 Meds Allergies and Active Meds Allergies No Known Allergies Allergy (Verified 06/30/24 13:38) Active Meds: Active Medications Generic Name Dose Route Start Last Admin Trade Name Freq PRN Reason Stop Dose Admin Acetaminophen 650 mg 06/30/24 17:44 07/02/24 08:14 Acetaminophen 325 Mg Tablet PO 06/30/25 17:43 650 mg Q4H PRN Administration Pain Scale 1 - 5 Albuterol 2.5 mg 06/30/24 17:44 Albuterol Neb 2.5 Mg/3 Ml Vial.Neb INHALATION 06/30/25 17:43 Q2H PRN Shortness Of Breath Amiodarone HCl 400 mg 07/02/24 09:00 07/02/24 08:13 Amiodarone 200 Mg Tablet PO 07/02/25 08:59 400 mg DAILY KWAN Administration Atorvastatin Calcium 40 mg 07/01/24 09:00 07/02/24 08:14 Atorvastatin 40 Mg Tablet PO 07/01/25 08:59 40 mg DAILY KWAN Administration Atropine Sulfate 1 mg 07/02/24 09:30 Atropine Sulfate 1 Mg/10 Ml Syringe IV-PUSH ONCE PRN Bradycardia Bupropion HCl 300 mg 07/01/24 09:00 07/02/24 08:14 Bupropion 300 Mg Tab.Er.24h PO 07/01/25 08:59 300 mg QAM KWAN Administration Diltiazem HCl 180 mg 07/01/24 09:00 07/02/24 08:14 Diltiazem Cd.24hr 180 Mg Cap.Er.24h PO 07/01/25 08:59 180 mg DAILY KWAN Administration Docusate Sodium 200 mg 06/30/24 17:44 Docusate 100 Mg Capsule PO 06/30/25 17:43 BID PRN Constipation Hydralazine HCl 10 mg 06/30/24 17:44 Hydralazine 20 Mg/Ml Vial IV-PUSH 06/30/25 17:43 Q4H PRN if SBP > 185 Pantoprazole Sodium 40 mg 06/30/24 21:00 07/02/24 08:14 Pantoprazole 40 Mg Tablet.Dr PO 06/30/25 20:59 40 mg BID KWAN Administration Potassium Chloride 40 meq 07/02/24 07:00 Potassium Chloride Er 20 Meq Tab.Er.Prt PO STAT PRN Hypokalemia Rivaroxaban 15 mg 07/01/24 22:00 07/01/24 21:56 Rivaroxaban 15 Mg Tablet PO 07/01/25 21:59 15 mg HS KWAN Administration Ropinirole HCl 1 mg 06/30/24 22:00 07/01/24 21:56 Ropinirole 1 Mg Tablet PO 06/30/25 21:59 1 mg QHS KWAN Administration Sodium Chloride 0 ml 06/30/24 13:38 06/30/24 15:09 Sodium Chloride 0.9 % 10 Ml Syringe IV-PUSH 06/30/25 13:37 10 ml PRN PRN Administration Flush Sodium Chloride 0 ml 07/01/24 12:05 07/02/24 09:16 Sodium Chloride 0.9 % 10 Ml Syringe IV-PUSH 07/01/25 12:04 30 ml PRN PRN Administration Flush A&P - Hospitalist Assessment/Plan (1) Elevated troponin: Plan 1. Shortness of breath, of unclear etiology, patient does not like to be in congestive heart failure, unlikely PE as the patient is already anticoagulated, rule out acute coronary syndrome Troponins elevated, EKG nonischemic, denies any chest pain Interrogated pacemaker Could be related due to atrial fibrillation, status post cardioversion 2. Atrial fibrillation, patient takes amiodarone, canverted to normal sinus rhythm Status post electrical cardioversion 3. Chronic kidney disease stage III, creatinine improved since admission 4. Syncopal episode, suspect vasovagal, improved with IV hydration, denies any chest pain Documented By: Shilpa Fenton MD 07/02/24 1303 Signed By: <Electronically signed by Shilpa Fenton MD> 07/02/24 1306 [facility] Work Phone: Progress note Author W Kwasi Dee [facility] Note Date/Time July 02, 2024 3:59pm [facility] [address] [place] [address] Cardiology Progress Note Signed Patient: Austin Golden MR#: [id number] : 1940 Acct:[id number] Age/Sex: 83 / F Adm Date: 4 Loc: Room: [address] [place] [address] Type: ADM IN Attending Dr: Shilpa Fenton MD Copies to: ~ Date of Service: 07/02/2024 Subjective Principal diagnosis: Paroxysmal A-fib, shortness of breath, history of HFpEF Interval history: Ms. Golden is a 83 year old female seen in cardiology consultation request the hospitalist in patient who presents with recurrent exertional dyspnea. She declines chest discomfort to me. Troponins are mildly elevated, initially at 101 and 85, and currently 92 (notably, she has chronic troponin elevation upon review of her EMR). Renal function is normal. Patient had recent heart catheterization performed earlier this year at [facility] revealing mild coronary disease and normal left ventricular function She has a history of heart failure with preserved ejection fraction, EF historically 55+ percent She has a history of paroxysmal atrial fibrillation, pacemaker, obstructive sleep apnea. She is very anxious in general, and his high anxiety presently in regards to her son's cancer diagnosis. She does not sleep well, spends most of the night up worrying about multiple things. Chest x-ray is clear with mild cardiomegaly and evidence of pacemaker, BNP is normal at 84, ECG reveals ventricular paced rhythm with underlying A-fib January of this past year she was admitted for pulmonary edema, atrial fibrillationwith RVR underwent successful cardioversion and diuresis. It appears that her atrial fibrillation (diastolic dysfunction) is recurrent, likely causative for her shortness of breath Recommendations: Escalate amiodarone to 400 daily, and repeat cardioversion Interim evaluation 07/02/2024: Patient successfully cardioverted back to sinus rhythm this morning. Feeling better and improved. Escalated amiodarone to 400 daily, discontinue digoxin, will continue magnesium, furosemide and diltiazem. Patient can follow-up with Dr. Mac and Dr. Medrano (electrophysiology) for further management. She is safe to be discharged today. Discussed mechanism ofdiastolic dysfunction, exertional dyspnea and shortness of breath associated with atrial fibrillation with the patient and her family. Patient is already had conversation about atrial fibrillation with Dr. Medrano and Dr. Mac; it appears she may be willing to reengage in this conversation. Exam Physical Exam Vital Signs: Temp Pulse Resp BP Pulse Ox O2 Del Method O2 Flow Rate 97.6 F 72 18 134/76 95 Nasal Cannula 2 07/02/24 15:08 07/02/24 15:08 07/02/24 15:08 07/02/24 15:08 07/02/24 15:08 07/02/24 15:10 07/02/24 15:10 Const General: cooperative, well developed and in distress mild and respiratory Nutritional Appearance: average body habitus Orientation: alert, awake and oriented x3 HEENT Head: normal to inspection Neck Neck: normal visual inspection Chest Chest palpation & inspection: normal inspection of the chest Resp Effort & Inspection: normal respiratory effort Auscultation: clear to auscultation bilaterally Cardio Rate: regular rate Rhythm: abnormal rhythm Heart Sounds: S1 normal and S2 normal Bruits: no carotid bruits Pulses: radial pulses present GI Palpation: soft Skin General: no rashes or lesions noted Neuro General: patient alert, patient awake and patient oriented x3 Cognition: normal cognition Speech: speech normal Extrem General: no clubbing, cyanosis or edema Psych Mood: anxious mood Objective Labs 07/02/24 11:55 07/02/24 11:55 Labs: Laboratory Results - last 24 hr 07/02/24 07/02/24 07/02/24 06:37 11:42 11:55 Corrected WBC 9.1 Uncorrected WBC Count 9.1 RBC 4.08 Hgb 12.8 Hct 38.5 MCV 94.4 MCH 31.5 MCHC 33.3 RDW 14.2 Plt Count 238 MPV 8.2 Neut % (Auto) 72.9 Lymph % (Auto) 19.1 [place] % (Auto) 4.8 Eos % (Auto) 1.9 Baso % (Auto) 1.3 Nucleat RBC Rel Count 0.2 Neut # (Auto) 6.7 Lymph # (Auto) 1.7 [place] # (Auto) 0.4 Eos # (Auto) 0.2 Baso # (Auto) 0.1 PHA Creatinine Clear 35.63 32.31 Sodium 137 138 Potassium 4.1 4.0 Chloride 104 104 Carbon Dioxide 24.2 23.3 Anion Gap 12.9 14.7 BUN 23 24 Creatinine 1.07 1.18 Est GFR (CKD-EPI) 52.185 46.403 Glucose 101 H 166 H POC Glucose 172 Calcium 8.4 L 8.4 L A&P - Cardiology (1) Elevated troponin: Code(s): R79.89 - Other specified abnormal findings of blood chemistry (2) High risk medication use: Code(s): Z79.899 - Other halfway (current) drug therapy (3) Chronic heart failure with preserved ejection fraction (HFpEF): Code(s): I50.32 - Chronic diastolic (congestive) heart failure (4) Paroxysmal atrial fibrillation: Code(s): I48.0 - Paroxysmal atrial fibrillation Plan Escalate amiodarone to 400 daily Proceed with elective cardioversion tomorrow No evidence of chest pain (mild coronary disease on March 2024 heart catheterization), with normal LV function Documented By: Javed Dee DO 07/02/24 1556 Signed By: <Electronically signed by Javed Dee DO> 07/02/24 1559 [facility] Work Phone: Reason for referral (narrative)* Consultation (Routine) - Authorized Specialty Diagnoses / Procedures Referred By Ashtyn t Referred To Contact Cardiology Diagnoses 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) Pacemaker Sinus bradycardia Debbie Mac MD [address] [place] [address] Referral ID Status Reason Start Date Expiration Date Visits Requested Visits Authorized [id number] Authorized Specialty Services Required 09/19/2023 09/18/2024 1 1 * Cardiovascular (Routine) - Authorized Specialty Diagnoses / Procedures Referred By Ashtyn t Referred To Contact Diagnoses Persistent atrial fibrillation (CMS/HCC) Procedures ECG 12 Lead Debbie Mac MD [address] [place] [address] Referral ID Status Reason Start Date Expiration Date V isits Requested Visits Authorized [id number] Authorized 09/19/2023 09/18/2024 1 1 * Consultation (Routine) - Authorized Specialty Diagnoses / Procedures Referred By Ashtyn t Referred To Contact Cardiology Diagnoses Persistent atrial fibrillation (CMS/HCC) 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) Chronic diastolic heart failure (CMS/HCC) Procedures Follow Up In Cardiology Debbie Mac MD [address] [place] [address] Debbie Mac MD [address] [place] [address] Referral ID Status Reason Start Date Expiration Date V isits Requested Visits Authorized [id number] Authorized 09/19/2023 09/18/2024 1 1 [facility] Work Phone: Reason for referral (narrative)* Tests/Procedures (Routine) - Authorized Specialty Diagnoses / Procedures Referred By Contac t Referred To Contact Gastroenterology Diagnoses Esophageal dysphagia Katie Yung MD [address] [place] [address] [facility] END[facility]COPY [address] [place] [address] Referral ID Status Reason Start Date Expiration Date Visits Requested Visits Authorized [id number] Authorized Consultatio n-[facility] 05/15/2024 05/15/2025 1 1 Scheduling Instructions [facility] Division of Gastroenterology [address] [place] [address] ESOPHAGEAL MANOMETRY WHAT IS ESOPHAGEAL MANOMETRY? Esophageal manometry is a way to measure and record the pressure in your esophagus. This test is important in helping your doctor plan your care. WHAT PREPARATION IS REQUIRED? Do not eat or drink 4 hours before the test. Please DO NOT take opioids like Oxycodone, Oxycontin, Vicodin, Morphine or Methadone for 48 hours before the test. WHAT SHOULD YOU EXPECT DURING THE TEST? A thin, bending catheter will be gently passed through your nose and into your esophagus (food-pipe) to the entrance to your stomach. You will be given a series of swallowing exercises laying down and sitting up to measure the strength of the muscles. The pressure changes will then be recorded. WHAT HAPPENS AFTER THE TEST? The catheter is removed and your doctor will study the results and contact you within 2-3 weeks. You may return to your normal activities after this test. You may eat once you get home. LOCATION: [facility] Suite located at [address] [place] [address]. - Plan to arrive at least 60 minutes before your scheduled procedure. Please also plan extra time for parking and shuttle service. - Bring your photo ID, insurance card, and medication insurance card. - Parking is available in the [facility] accessible from [facility]. - 12/03 shuttle service from the garage to [facility] is available. - Go to the ground floor of the parking garage to reach the shuttle pick-up station located near the elevator and stairs. - Shuttle service will drop you off at [facility] Main Entrance. - Energy Engineer service is available at [facility] Main Entrance if you would prefer line lead over parking ([facility] Energy Engineer Service Hours: Sunday-Sunday, 5:30am- 8:00pm). - Enter [facility] Main Entrance and go to the Admitting/Registration Desk to check in for your procedure. - The Endoscopy department is located on the 1st floor of [facility]. Please call [phone] Sunday-Sunday, 7:00am-6:00pm if you have any pre- procedural questions. If you are calling AFTER HOURS, please call [phone] to speak to the [facility] Nurse hotel casino floorperson. If you need to cancel this appointment prior to the scheduled date, please call the Endoscopy call center at [phone] at least 48 hours before the appointment/procedure time. Test Date: Test Time: We make every attempt to maintain our schedule, however, it is not always possible. Some procedures may take longer than others and our cases are scheduled to follow one another. We apologize for any delays. For any questions before your appointment, please call [phone] or [phone]. To cancel or change your appointment please call the Gastroenterology scheduling line at [phone]. [facility] Consultation (Routine) - Authorized Specialty Diagnoses / Procedures Referred By Contac t Referred To Contact Cardiology Diagnoses High risk medication use Pacemaker Anticoagulation management encounter Longstanding persistent atrial fibrillation (Multi) Sinus bradycardia BMI 28.0-28.9,adult Never smoked any substance Procedures Follow Up In Cardiology Maxwell Medrano MD [address] [address] Referral ID Status Reason Start Date Expiration Date V isits Requested Visits Authorized [id number] Authorized 04/17/2024 04/17/2025 1 1 * Consultation (Routine) - Authorized Specialty Diagnoses / Procedures Referred By Contac t Referred To Contact Cardiology Diagnoses High risk medication use Pacemaker Anticoagulation management encounter Longstanding persistent atrial fibrillation (Multi) Sinus bradycardia BMI 28.0-28.9,adult Never smoked any substance Procedures Follow Up In Cardiology Maxwell Medrano MD [address] [place] [address] Referral ID Status Reason Start Date Expiration Date V isits Requested Visits Authorized [id number] Authorized 04/17/2024 04/17/2025 1 1 * Cardiovascular (Routine) - Authorized Specialty Diagnoses / Procedures Referred By Contac t Referred To Contact Diagnoses High risk medication use Procedures ECG 12 lead (Clinic Performed) Maxwell Medrano MD [address] [place] [address] Referral ID Status Reason Start Date Expiration Date V isits Requested Visits Authorized [id number] Authorized 04/17/2024 04/17/2025 1 1 [facility] Work Phone: reason for referral (narrative)* Consultation (Routine) - Authorized Specialty Diagnoses / Procedures Referred By Contac t Referred To Contact Cardiology Diagnoses Pacemaker Persistent atrial fibrillation (Multi) Essential hypertension, benign Diastolic heart failure, unspecified HF chronicity (Multi) High risk medication use BMI 28.0-28.9,adult 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 (Multi) Sinus bradycardia Never smoked any substance Procedures Follow Up In Cardiology Maxwell Medrano MD [address] [place] [address] Referral ID Status Reason Start Date Expiration Date V isits Requested Visits Authorized [id number] Authorized 04/28/2024 04/28/2025 1 1 [facility] Work Phone: reason for visit Narrative* Diagnostic X-Ray (Routine) - Closed Specialty Diagnoses / Procedures Referred By Ashtyn t Referred To Contact Radiology Diagnoses Esophageal dysphagia Procedures FL BARIUM SWALLOW DOUBLE CNTRST FL BARIUM SWALLOW SINGL CNTRST Katie Yung MD [address] [place] [address] Phone: tel: fax: [facility] [address] [place] [address] Phone: tel: Referral ID Status Reason Start Date Expiration Date Visits Re quested Visits Authorized [id number] Closed 06/19/2024 06/19/2025 1 1 [facility] Imaging (Routine) - Pending Review Specialty Diagnoses / Procedures Referred By Ashtyn t Referred To Contact Cardiology Diagnoses Pacemaker Sick sinus syndrome (Multi) Procedures Cardiac Device Check - Remote Maxwell Medrano MD [address] [address] Phone: tel: fax: Referral ID Status Reason Start Date Expiration Date Visits Requested Visits Authorized [id number] Pending Review Perform Procedure 09/08/2024 09/08/2025 52 52 [facility] Work Phone: reason for visit Narrative* Imaging (Routine) - Pending Review Specialty Diagnoses / Procedures Referred By Ashtyn dobson Referred To Contact Cardiology Diagnoses Pacemaker Procedures Cardiac Device Check - Remote Maxwell Medrano MD [address] [address] Phone: tel: fax: Referral ID Status Reason Start Date Expiration Date Visits Requested Visits Authorized [id number] Pending Review Perform Procedure 10/23/2024 10/23/2025 52 52 [facility] Work Phone: reason for visit Narrative* Imaging (Routine) - Authorized Specialty Diagnoses / Procedures Referred By Awaac t Referred To Contact Radiology Diagnoses Persistent atrial fibrillation (Multi) Procedures CT angio chest pre pulmonary vein ablation planning gated CT heart structure morphology congenital heart disease w IV contrast Maxwell Medrano MD [address] [facility] [address] [place] [address] Phone: tel: fax: Referral ID Status Reason Start Date Expiration Date Visits Requested Visits Authorized [id number] Authorized Perform Procedure 10/23/2024 10/23/2025 1 1 [facility] Work Phone: Summary Purpose Family History [...] Advance Directives No June 25, 2020 11:57am Advance Directive Response Recorded Date/ Time Advance Directives No April 08, 2024 4:55pm Date Activated Date Inactivated Comments 03/21/2024 3:53 PM Question Answer Comments Plan of Care: Code Status Discussion Completed Decision Maker: Patient Advance Directive Response Recorded Date/ Time Advance Directives No April 08, 2024 3:55pm Advance Directive Response Recorded Date/ Time Advance Directives No July 24, 2024 2:33pm Advance Directive Response Recorded Date/ Time Advance Directives No July 24, 2024 3:33pm Hospital Course Note MR#: [id number] [facility] Pt. Name: Austin Golden Admitted: 07/26/2020 Discharged: 07/31/2020 Date of [...] Mac MD to review order sent to [facility] for pft ast tsh onlyAUSTIN GOLDEN is being seen for a 15 week follow-up of.AUSTIN GOLDEN is being seen for a 4 month follow-up of. AUSTIN GOLDEN is being seen for a 4-5 [...] She was recently in the hospital at [facility] for Afib and was taken [...] RN * TO Dr. Debbie Mac MD AUSTIN GOLDEN is being seen for cath follow up.AUSTIN GOLDEN is being seen for cath follow up.AUSTIN GOLDEN is being seen for cath follow [...] disease Hx of hiatal hernia Chief Complaint SOB, A-fib Amb Documentation hospital follow up hospital follow up R11.2 Amb Documentation [facility], Conversion/ 4 month f/u Reason for Visit Chronic heart failur e with preserved ejection fraction (HFpEF) Stage 3a [...] chronic kidney disease Hx of hiatal hernia Acute on chronic heart failure with preserved ejection fraction (HFpEF) GERD (gastroesophageal reflux disease) Paroxysmal atrial fibrillation Primary hypertension Stage 3a chronic kidney disease Chief Complaint SOB, A-fib Amb Documentation hospital follow up hospital follow up R11.2 Amb Documentation [facility], Conversion/ 4 month f/u trouble vomiting Reason for Visit Chronic heart failur e with preserved ejection fraction (HFpEF) Stage 3a [...] chronic kidney disease Hx of hiatal hernia Acute on chronic heart failure with preserved ejection fraction (HFpEF) GERD (gastroesophageal reflux disease) Paroxysmal atrial fibrillation Primary hypertension Stage 3a chronic kidney disease Dyspepsia GERD (gastroesophageal reflux disease) Vomiting Chief Complaint hospital follow up hospital follow up R11.2 Amb Documentation [facility], Conversion/ 4 month f/u trouble vomiting z79.899 z51.81 z79.01 i48.11 r00.1 z68.28 z78.9 Reason for Visit Chronic heart failur e with preserved ejection fraction (HFpEF) Hypercholesterolemia Lumbar spondylosis Obstructive sleep apnea Paroxysmal atrial fibrillation Primary hypertension Stage 3a chronic kidney disease Hx of hiatal hernia Nausea & vomiting Acute on chronic heart failure with preserved ejection fraction (HFpEF) Obstructive sleep apnea Paroxysmal atrial fibrillation Primary hypertension Stage 3a chronic kidney disease Hx of hiatal hernia Acute on chronic heart failure with preserved ejection fraction (HFpEF) GERD (gastroesophageal reflux disease) Paroxysmal atrial fibrillation Primary hypertension Stage 3a chronic kidney disease Dyspepsia GERD (gastroesophageal reflux disease) Vomiting Chief Complaint hospital follow up R11.2 Amb Documentation [facility], Conversion/ 4 month f/u trouble vomiting z79.899 z51.81 z79.01 i48.11 r00.1 z68.28 z78.9 swelling Reason for Visit Acute on chronic hea rt failure with preserved ejection fraction (HFpEF) Obstructive sleep apnea Paroxysmal atrial fibrillation Primary hypertension Stage 3a chronic kidney disease Hx of hiatal hernia Acute on chronic heart failure with preserved ejection fraction (HFpEF) GERD (gastroesophageal reflux disease) Paroxysmal atrial fibrillation Primary hypertension Stage 3a chronic kidney disease Dyspepsia GERD (gastroesophageal reflux disease) Vomiting Chief Complaint Amb Documentation [facility], Conversion/ 4 month f/u trouble vomiting z79.899 z51.81 z79.01 i48.11 r00.1 z68.28 z78.9 swelling 1 month f/u Dysphagia Reason for Visit Acute on chronic hea rt failure with preserved ejection fraction (HFpEF) GERD (gastroesophageal reflux disease) Paroxysmal atrial fibrillation Primary hypertension Stage 3a chronic kidney disease Dyspepsia GERD (gastroesophageal reflux disease) Vomiting Acute on chronic heart failure with preserved ejection fraction (HFpEF) Chronic venous insufficiency of lower extremity GERD (gastroesophageal reflux disease) Paroxysmal atrial fibrillation Primary hypertension Stage 3a chronic kidney disease Cirrhosis GERD (gastroesophageal reflux disease) Chief Complaint Amb Documentation [facility], Conversion/ 4 month f/u trouble vomiting z79.899 z51.81 z79.01 i48.11 r00.1 z68.28 z78.9 swelling 1 month f/u Dysphagia stomach pain Reason for Visit Acute on chronic hea rt failure with preserved ejection fraction (HFpEF) GERD (gastroesophageal reflux disease) Paroxysmal atrial fibrillation Primary hypertension Stage 3a chronic kidney disease Dyspepsia GERD (gastroesophageal reflux disease) Vomiting Acute on chronic heart failure with preserved ejection fraction (HFpEF) Chronic venous insufficiency of lower extremity GERD (gastroesophageal reflux disease) Paroxysmal atrial fibrillation Primary hypertension Stage 3a chronic kidney disease Dyspepsia Esophageal dysmotility GERD (gastroesophageal reflux disease) Acute on chronic heart failure with preserved ejection fraction (HFpEF) Chronic venous insufficiency of lower extremity GERD (gastroesophageal reflux disease) Paroxysmal atrial fibrillation Primary hypertension Stage 3a chronic kidney disease Chief Complaint Admit Date [facility], Conversion/ 4 month f/u Augus 2023 3:40pm trouble vomiting April 18, 2024 10 :03am z79.899 z51.81 z79.01 i48.11 r00.1 z68.2 8 z78.9 April 24, 2024 2:55pm swelling May 08, 2024 11:45am 1 month f/u Dysphagia May 19 9:22am stomach pain June 10, 2024 3 :15pm Shortness of Breath June 30, 2024 5:45pm Reason for Visit Admit Date Acute on chronic heart failu re with preserved ejection fraction (HFpEF) April 08, 2024 3:40pm GERD (gastroesophageal reflux disease) A ugust 2023 3:40pm Paroxysmal atrial fibrillation April 082023 3:40pm Primary hypertension April 08, 2024 3 :40pm Stage 3a chronic kidney disease March 212023 3:40pm Dyspepsia April 18, 2024 10 :03am GERD (gastroesophageal reflux disease) A ugust 2023 10:03am Vomiting April 18, 2024 10 :03am Acute on chronic heart failu re with preserved ejection fraction (HFpEF) May 08, 2024 11:45am Chronic venous insufficiency of lower ex tremity May 08, 2024 11:45am [facility]es[facility] Paroxysmal atrial fibrillation May 08, 2024 11:45am Primary hypertension May 08 11:45am Stage 3a chronic kidney disease Septembe r 2023 11:45am Dyspepsia May 19, 2024 9:22am Esophageal dysmotility May 19, 024 9:22am GERD (gastroesophageal reflux disease) S eptember 2023 9:22am Acute on chronic heart failu re with preserved ejection fraction (HFpEF) June 10, 2024 3:15pm Esophageal dysmotility June 10 3:15pm GERD (gastroesophageal reflux disease) O ctober 2023 3:15pm Paroxysmal atrial fibrillation May 212023 3:15pm Primary hypertension June 10, 2024 3:15pm Stage 3a chronic kidney disease June 10, 2024 3:15pm Acute electrocardiogram changes June 30, 2024 5:45pm Chest pain June 30, 2024 5:45pm Elevated troponin June 30, 2024 5:45pm Chief Complaint Admit Date [facility], Conversion/ 4 month f/u Augus t 2023 3:40pm trouble vomiting April 18, 2024 10 :03am z79.899 z51.81 z79.01 i48.11 r00.1 z68.2 8 z78.9 April 24, 2024 2:55pm swelling May 08, 2024 11:45am 1 month f/u Dysphagia May 19 9:22am stomach pain June 10, 2024 3 :15pm Shortness of Breath June 30, 2024 5:45pm Shortness of Breath July 01, 2024 12:00am Shortness of Breath July 02, 2024 12:00am CC Adult Risk Stratification July 022023 1:40pm Reason for Visit Admit Date Acute on chronic heart failu re with preserved ejection fraction (HFpEF) April 08, 2024 3:40pm GERD (gastroesophageal reflux disease) A ugust 2023 3:40pm Paroxysmal atrial fibrillation April 082023 3:40pm Primary hypertension April 08, 2024 3 :40pm Stage 3a chronic kidney disease March 212023 3:40pm Dyspepsia April 18, 2024 10 :03am GERD (gastroesophageal reflux disease) A ugust 2023 10:03am Vomiting April 18, 2024 10 :03am Acute on chronic heart failu re with preserved ejection fraction (HFpEF) May 08, 2024 11:45am Chronic venous insufficiency of lower ex tremity May 08, 2024 11:45am GERD (gastroesophageal reflux disease) S epteer 2023 11:45am Paroxysmal atrial fibrillation May 08, 2024 11:45am Primary hypertension May 08 11:45am Stage 3a chronic kidney disease Septembe 2023 11:45am Dyspepsia May 19, 2024 9:22am Esophageal dysmotility May 19, 024 9:22am GERD (gastroesophageal reflux disease) S eptember 2023 9:22am Acute on chronic heart failu re with preserved ejection fraction (HFpEF) June 10, 2024 3:15pm Esophageal dysmotility June 10 3:15pm GERD (gastroesophageal reflux disease) O ctober 2023 3:15pm Paroxysmal atrial fibrillation May 212023 3:15pm Primary hypertension June 10, 2024 3:15pm Stage 3a chronic kidney disease June 10, 2024 3:15pm Acute electrocardiogram changes June 30, 2024 5:45pm Chest pain June 30, 2024 5:45pm 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) June 30, 2024 5:45pm Elevated troponin June 30, 2024 5:45pm High risk medication use June 30, 2024 5:45pm Paroxysmal atrial fibrillation June 30, 2024 5:45pm Chief Complaint Admit Date trouble vomiting April 18, 2024 10 :03am z79.899 z51.81 z79.01 i48.11 r00.1 z68.2 8 z78.9 April 24, 2024 2:55pm swelling May 08, 2024 11:45am 1 month f/u Dysphagia May 19 9:22am stomach pain June 10, 2024 3 :15pm Shortness of Breath June 30, 2024 5:45pm Shortness of Breath July 01, 2024 12:00am Shortness of Breath July 02, 2024 12:00am CC Adult Risk Stratification July 022023 1:40pm Wellness-HIGH RISK July 09, 2024 2:54pm Reason for Visit Admit Date Dyspepsia April 18, 2024 10 :03am GERD (gastroesophageal reflux disease) A ugust 2023 10:03am Vomiting April 18, 2024 10 :03am Acute on chronic heart failu re with preserved ejection fraction (HFpEF) May 08, 2024 11:45am Chronic venous insufficiency of lower ex tremity May 08, 2024 11:45am GERD (gastroesophageal reflux disease) S epteer 2023 11:45am Paroxysmal atrial fibrillation May 08, 2024 11:45am Primary hypertension May 08 11:45am Stage 3a chronic kidney disease Septembe r 2023 11:45am Dyspepsia May 19, 2024 9:22am Esophageal dysmotility May 19, 2 024 9:22am GERD (gastroesophageal reflux disease) S eptember 2023 9:22am Acute on chronic heart failu re with preserved ejection fraction (HFpEF) June 10, 2024 3:15pm Esophageal dysmotility June 10 3:15pm GERD (gastroesophageal reflux disease) O ctober 2023 3:15pm Paroxysmal atrial fibrillation May 212023 3:15pm Primary hypertension June 10, 2024 3:15pm Stage 3a chronic kidney disease June 10, 2024 3:15pm Acute electrocardiogram changes June 30, 2024 5:45pm Chest pain June 30, 2024 5:45pm 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) June 30, 2024 5:45pm Elevated troponin June 30, 2024 5:45pm High risk medication use June 30, 2024 5:45pm Paroxysmal atrial fibrillation June 30, 2024 5:45pm 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) July 09, 2024 2:54pm Esophageal obstruction July 09 2:54pm GERD (gastroesophageal reflux disease) N ovember 2023 2:54pm Paroxysmal atrial fibrillation July 09, 2024 2:54pm Primary hypertension July 09, 2024 2:54pm Stage 3a chronic kidney disease July 09, 2024 2:54pm Chief Complaint Admit Date stomach pain June 10, 2024 3 :15pm Shortness of Breath June 30, 2024 5:45pm Shortness of Breath July 01, 2024 12:00am Shortness of Breath July 02, 2024 12:00am CC Adult Risk Stratification July 022023 1:40pm Wellness-HIGH RISK July 09, 2024 2:54pm N Stemi July 21, 2024 9 :28pm N Stemi July 23, 2024 1 2:56pm [facility] follow up-HIGH RISK July 31, 2024 11:23am Fall on 08/22:Hurt R Side-HIGH RISK Januar y 2024 2:04pm Reason for Visit Admit Date Acute on chronic heart failu re with preserved ejection fraction (HFpEF) June 10, 2024 3:15pm Esophageal dysmotility June 10 3:15pm GERD (gastroesophageal reflux disease) O ctober 2023 3:15pm Primary hypertension June 10, 2024 3:15pm Stage 3a chronic kidney disease June 10, 2024 3:15pm Paroxysmal atrial fibrillation May 212023 3:15pm Acute electrocardiogram changes June 30, 2024 5:45pm Chest pain June 30, 2024 5:45pm 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) June 30, 2024 5:45pm Elevated troponin June 30, 2024 5:45pm High risk medication use June 30, 2024 5:45pm Paroxysmal atrial fibrillation June 30, 2024 5:45pm GERD (gastroesophageal reflux disease) N ovember 2023 2:54pm Primary hypertension July 09, 2024 2:54pm Stage 3a chronic kidney disease July 09, 2024 2:54pm 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) July 09, 2024 2:54pm Paroxysmal atrial fibrillation July 09, 2024 2:54pm Esophageal obstruction July 09 2:54pm Acute kidney injury July 21, 2024 9 :28pm Atrial fibrillation with rapid ventricul ar response July 21, 2024 9:28pm Atypical chest pain July 21, 2024 9 :28pm Dysphagia July 21, 2024 9 :28pm Elevated troponin July 21, 2024 9 :28pm Esophageal obstruction July 21 9:28pm GERD (gastroesophageal reflux disease) D ecember 2023 11:23am Primary hypertension July 31, 2024 11:23am Stage 3a chronic kidney disease July 31, 2024 11:23am 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) July 31, 2024 11:23am Paroxysmal atrial fibrillation July 31, 2024 11:23am Esophageal obstruction July 31 11:23am Chief Complaint Admit Date stomach pain June 10, 2024 3 :15pm Shortness of Breath June 30, 2024 5:45pm Shortness of Breath July 01, 2024 12:00am Shortness of Breath July 02, 2024 12:00am CC Adult Risk Stratification July 022023 1:40pm Wellness-HIGH RISK July 09, 2024 2:54pm N Stemi July 21, 2024 9 :28pm N Stemi July 23, 2024 1 2:56pm [facility] follow up-HIGH RISK July 31, 2024 11:23am Fall on 08/22:Hurt R Side-HIGH RISK Januar y 2024 2:04pm cervical pain, thoracic pain August 12:14pm Reason for Visit Admit Date Acute on chronic heart failu re with preserved ejection fraction (HFpEF) June 10, 2024 3:15pm Esophageal dysmotility June 10 3:15pm GERD (gastroesophageal reflux disease) O ctober 2023 3:15pm Primary hypertension June 10, 2024 3:15pm Stage 3a chronic kidney disease June 10, 2024 3:15pm Paroxysmal atrial fibrillation May 212023 3:15pm Acute electrocardiogram changes June 30, 2024 5:45pm Chest pain June 30, 2024 5:45pm 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) June 30, 2024 5:45pm Elevated troponin June 30, 2024 5:45pm High risk medication use June 30, 2024 5:45pm Paroxysmal atrial fibrillation June 30, 2024 5:45pm GERD (gastroesophageal reflux disease) N ovember 2023 2:54pm Primary hypertension July 09, 2024 2:54pm Stage 3a chronic kidney disease July 09, 2024 2:54pm 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) July 09, 2024 2:54pm Paroxysmal atrial fibrillation July 09, 2024 2:54pm Esophageal obstruction July 09 2:54pm Acute kidney injury July 21, 2024 9 :28pm Atrial fibrillation with rapid ventricul ar response July 21, 2024 9:28pm Atypical chest pain July 21, 2024 9 :28pm Dysphagia July 21, 2024 9 :28pm Elevated troponin July 21, 2024 9 :28pm Esophageal obstruction July 21 9:28pm GERD (gastroesophageal reflux disease) D ecember 2023 11:23am Primary hypertension July 31, 2024 11:23am Stage 3a chronic kidney disease July 31, 2024 11:23am 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) July 31, 2024 11:23am Paroxysmal atrial fibrillation July 31, 2024 11:23am Esophageal obstruction July 31 11:23am Abrasion of elbow, left August 27 2:04pm Abrasion of knee, left, infected August 27, 2024 2:04pm Chest wall contusion August 27, 2024 2 :04pm Chief Complaint Admit Date Shortness of Breath June 30, 2024 5:45pm Shortness of Breath July 01, 2024 12:00am Shortness of Breath July 02, 2024 12:00am CC Adult Risk Stratification July 022023 1:40pm Wellness-HIGH RISK July 09, 2024 2:54pm N Stemi July 21, 2024 9 :28pm N Stemi July 23, 2024 1 2:56pm [facility] follow up-HIGH RISK July 31, 2024 11:23am Fall on 08/22:Hurt R Side-HIGH RISK Januar y 2024 2:04pm cervical pain, thoracic pain August 12:14pm chest pain/cough September 09, 2024 3 :04pm Reason for Visit Admit Date Acute electrocardiogram changes June 30, 2024 5:45pm Chest pain June 30, 2024 5:45pm 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) June 30, 2024 5:45pm Elevated troponin June 30, 2024 5:45pm High risk medication use June 30, 2024 5:45pm Paroxysmal atrial fibrillation June 30, 2024 5:45pm GERD (gastroesophageal reflux disease) N ovember 2023 2:54pm Primary hypertension July 09, 2024 2:54pm Stage 3a chronic kidney disease July 09, 2024 2:54pm 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) July 09, 2024 2:54pm Paroxysmal atrial fibrillation July 09, 2024 2:54pm Esophageal obstruction July 09 2:54pm Acute kidney injury July 21, 2024 9 :28pm Atrial fibrillation with rapid ventricul ar response July 21, 2024 9:28pm Atypical chest pain July 21, 2024 9 :28pm Dysphagia July 21, 2024 9 :28pm Elevated troponin July 21, 2024 9 :28pm Esophageal obstruction July 21 9:28pm GERD (gastroesophageal reflux disease) D ecember 2023 11:23am Primary hypertension July 31, 2024 11:23am Stage 3a chronic kidney disease July 31, 2024 11:23am 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) July 31, 2024 11:23am Paroxysmal atrial fibrillation July 31, 2024 11:23am Esophageal obstruction July 31 11:23am Abrasion of elbow, left August 27 2:04pm Abrasion of knee, left, infected August 27, 2024 2:04pm Chest wall contusion August 27, 2024 2 :04pm Chief Complaint Admit Date Shortness of Breath June 30, 2024 5:45pm Shortness of Breath July 01, 2024 12:00am Shortness of Breath July 02, 2024 12:00am CC Adult Risk Stratification July 022023 1:40pm Wellness-HIGH RISK July 09, 2024 2:54pm N Stemi July 21, 2024 9 :28pm N Stemi July 23, 2024 1 2:56pm [facility] follow up-HIGH RISK July 31, 2024 11:23am Fall on 08/22:Hurt R Side-HIGH RISK Januar y 2024 2:04pm cervical pain, thoracic pain August 12:14pm chest pain/cough September 09, 2024 3 :04pm Chronic Kidney Disease September 11 12:51pm Reason for Visit Admit Date Acute electrocardiogram changes June 30, 2024 5:45pm Chest pain June 30, 2024 5:45pm 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) June 30, 2024 5:45pm Elevated troponin June 30, 2024 5:45pm High risk medication use June 30, 2024 5:45pm Paroxysmal atrial fibrillation June 30, 2024 5:45pm GERD (gastroesophageal reflux disease) N ovember 2023 2:54pm Primary hypertension July 09, 2024 2:54pm 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) July 09, 2024 2:54pm Paroxysmal atrial fibrillation July 09, 2024 2:54pm Esophageal obstruction July 09 2:54pm Stage 3a chronic kidney disease July 09, 2024 2:54pm Acute kidney injury July 21, 2024 9 :28pm Atrial fibrillation with rapid ventricul ar response July 21, 2024 9:28pm Atypical chest pain July 21, 2024 9 :28pm Dysphagia July 21, 2024 9 :28pm Elevated troponin July 21, 2024 9 :28pm Esophageal obstruction July 21 9:28pm GERD (gastroesophageal reflux disease) D ecember 2023 11:23am Primary hypertension July 31, 2024 11:23am 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) July 31, 2024 11:23am Paroxysmal atrial fibrillation July 31, 2024 11:23am Esophageal obstruction July 31 11:23am Stage 3a chronic kidney disease July 31, 2024 11:23am Abrasion of elbow, left August 27 2:04pm Abrasion of knee, left, infected August 27, 2024 2:04pm Chest wall contusion August 27, 2024 2 :04pm Acute on chronic heart failu re with preserved ejection fraction (HFpEF) September 09, 2024 3:04pm ASHD (arteriosclerotic heart disease) Ja nuary 2024 3:04pm Atrial fibrillation September 09, 2024 3 :04pm Chest wall contusion September 09, 2024 3:04pm Chronic kidney disease September 09 3:04pm Dysphagia September 09, 2024 3 :04pm Primary hypertension September 09, 2024 3:04pm Rectal bleeding September 09, 2024 3 :04pm Chief Complaint Admit Date Shortness of Breath June 30, 2024 5:45pm Shortness of Breath July 01, 2024 12:00am Shortness of Breath July 02, 2024 12:00am CC Adult Risk Stratification July 022023 1:40pm Wellness-HIGH RISK July 09, 2024 2:54pm N Stemi July 21, 2024 9 :28pm N Stemi July 23, 2024 1 2:56pm [facility] follow up-HIGH RISK July 31, 2024 11:23am Fall on 08/22:Hurt R Side-HIGH RISK Januar y 2024 2:04pm cervical pain, thoracic pain August 12:14pm chest pain/cough September 09, 2024 3 :04pm Chronic Kidney Disease September 11 12:51pm Difficulty Breathing & R Side Pain Janua ry 2024 11:10am Chief Complaint Admit Date Wellness-HIGH RISK July 09, 2024 2:54pm N Stemi July 21, 2024 9 :28pm N Stemi July 23, 2024 1 2:56pm [facility] follow up-HIGH RISK July 31, 2024 11:23am Fall on 08/22:Hurt R Side-HIGH RISK Januar y 2024 2:04pm cervical pain, thoracic pain August 12:14pm chest pain/cough September 09, 2024 3 :04pm Chronic Kidney Disease September 11 12:51pm Difficulty Breathing & R Side Pain Wenceslao ry 2024 11:10am 3 month f/u October 06, 2024 3:03pm Reason for Visit Admit Date GERD (gastroesophageal reflux disease) N ovember 2023 2:54pm Primary hypertension July 09, 2024 2:54pm 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) July 09, 2024 2:54pm Paroxysmal atrial fibrillation July 09, 2024 2:54pm Esophageal obstruction July 09 2:54pm Stage 3a chronic kidney disease July 09, 2024 2:54pm Acute kidney injury July 21, 2024 9 :28pm Atrial fibrillation with rapid ventricul ar response July 21, 2024 9:28pm Atypical chest pain July 21, 2024 9 :28pm Dysphagia July 21, 2024 9 :28pm Elevated troponin July 21, 2024 9 :28pm Esophageal obstruction July 21 9:28pm GERD (gastroesophageal reflux disease) D ecember 2023 11:23am Primary hypertension July 31, 2024 11:23am 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) July 31, 2024 11:23am Paroxysmal atrial fibrillation July 31, 2024 11:23am Esophageal obstruction July 31 11:23am Stage 3a chronic kidney disease July 31, 2024 11:23am Abrasion of elbow, left August 27 2:04pm Abrasion of knee, left, infected August 27, 2024 2:04pm Chest wall contusion August 27, 2024 2 :04pm Acute on chronic heart failu re with preserved ejection fraction (HFpEF) September 09, 2024 3:04pm ASHD (arteriosclerotic heart disease) [facility] 2024 3:04pm Atrial fibrillation September 09, 2024 3 :04pm Chest wall contusion September 09, 2024 3:04pm Chronic kidney disease September 09 3:04pm Dysphagia September 09, 2024 3 :04pm Primary hypertension September 09, 2024 3:04pm Rectal bleeding September 09, 2024 3 :04pm Chief Complaint Admit Date 3 month f/u-HIGH RISK January 09, 2025 2:2 6pm Chief Complaint Admit Date 3 month f/u-HIGH RISK January 09, 2025 2:2 6pm L Leg Check/Chest Heaviness/Cough January 212024 1:35pm Reason for Visit Admit Date ASHD (arteriosclerotic heart disease) Ma y 2024 2:26pm Chronic kidney disease January 09, 2025 2: 26pm GERD (gastroesophageal reflux disease) M ay 2024 2:26pm Hypercholesterolemia January 09, 2025 2:26 pm 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 January 09, 2025 2:26pm Primary hypertension January 09, 2025 2:26 pm Chronic heart failure with preserved eje ction fraction (HFpEF) January 09, 2025 2:26pm Paroxysmal atrial fibrillation January 09, 2025 2:26pm Chief Complaint Admit Date 3 month f/u-HIGH RISK January 09, 2025 2:2 6pm L Leg Check/Chest Heaviness/Cough January 212024 1:35pm weakness January 22, 2025 10:45 pm Reason for Visit Admit Date ASHD (arteriosclerotic heart disease) Ma y 2024 2:26pm Chronic kidney disease January 09, 2025 2: 26pm GERD (gastroesophageal reflux disease) M ay 2024 2:26pm Hypercholesterolemia January 09, 2025 2:26 pm 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 January 09, 2025 2:26pm Primary hypertension January 09, 2025 2:26 pm Chronic heart failure with preserved eje ction fraction (HFpEF) January 09, 2025 2:26pm Paroxysmal atrial fibrillation January 09, 2025 2:26pm ASHD (arteriosclerotic heart disease) Emily 2024 1:35pm Cellulitis of left leg without foot January 21, 2025 1:35pm Chronic kidney disease January 21, 2025 1: 35pm Primary hypertension January 21, 2025 1:35 pm Chronic heart failure with preserved eje ction fraction (HFpEF) January 21, 2025 1:35pm Paroxysmal atrial fibrillation January 21, 2025 1:35pm Atrial fibrillation with rapid ventricul ar response January 22, 2025 10:45pm Reason for Visit Admit Date ASHD (arteriosclerotic heart disease) Ma y 2024 2:26pm Chronic kidney disease January 09, 2025 2: 26pm GERD (gastroesophageal reflux disease) M ay 2024 2:26pm Hypercholesterolemia January 09, 2025 2:26 pm 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 January 09, 2025 2:26pm Primary hypertension January 09, 2025 2:26 pm Chronic heart failure with preserved eje ction fraction (HFpEF) January 09, 2025 2:26pm Paroxysmal atrial fibrillation January 09, 2025 2:26pm ASHD (arteriosclerotic heart disease) Ju ne 2024 1:35pm Cellulitis of left leg without foot January 21, 2025 1:35pm Chronic kidney disease January 21, 2025 1: 35pm Primary hypertension January 21, 2025 1:35 pm Chronic heart failure with preserved eje ction fraction (HFpEF) January 21, 2025 1:35pm Paroxysmal atrial fibrillation January 21, 2025 1:35pm Acute hypoxic respiratory failure January 222024 10:45pm ASHD (arteriosclerotic heart disease) Emily ne 2024 10:45pm Atrial fibrillation with rapid ventricul ar response January 22, 2025 10:45pm CHF exacerbation January 22, 2025 10:45 pm Chronic kidney disease January 22, 2025 10 :45pm Diastolic heart failure January 22, 2025 1 0:45pm Esophageal dysmotility January 22, 2025 10 :45pm Hypercholesterolemia January 22, 2025 10:4 5pm Paroxysmal atrial fibrillation with rapi d ventricular response January 22, 2025 10:45pm Persistent atrial fibrillation January 22, 2025 10:45pm Sick sinus syndrome January 22, 2025 10:45 pm Reason for Referral Specialty Diagnoses / Procedures Referred By Ashtyn dobson Referred To Contact Diagnoses Atrial flutter, unspecified type (Multi) Procedures ECG 12 Lead Debbie Mac MD [address] [address], [place] [address] Referral ID Status Reason Start Date Expiration Date V isits Requested Visits Authorized [id number] Authorized 04/24/2024 04/24/2025 1 1 Specialty Diagnoses / Procedures Referred By Ashtyn dobson Referred To Contact Cardiology Diagnoses Atrial flutter, unspecified type (Multi) Procedures Follow Up In Cardiology Debbie Mac MD [address] [facility] 2, Edu[address] [place] [id number] Debbie Mac MD [address] [facility] [address], [address] [address] Referral ID Status Reason Start Date Expiration Date V isits Requested Visits Authorized [id number] Authorized 04/24/2024 04/24/2025 1 1 Specialty Diagnoses / Procedures Referred By Contac t Referred To Contact Diagnoses High risk medication use Procedures ECG 12 Lead Maxwell Medrano MD [address] [place] [id number] Referral ID Status Reason Start Date Expiration Date V isits Requested Visits Authorized [id number] Authorized 02/28/2024 02/27/2025 1 1 Specialty Diagnoses / Procedures Referred By Contac t Referred To Contact Cardiology Diagnoses High risk medication use Diastolic heart failure, unspecified HF chronicity (Multi) Abnormal EKG Anticoagulation management encounter Longstanding persistent atrial fibrillation (Multi) Sinus bradycardia Pacemaker BMI 30.0-30.9,adult Never smoked tobacco Procedures Follow Up In Cardiology Maxwell Medrano MD [address] [address] Referral ID Status Reason Start Date Expiration Date V isits Requested Visits Authorized [id number] Authorized 02/28/2024 02/27/2025 1 1 Specialty Diagnoses / Procedures Referred By Contac t Referred To Contact Anesthesiology Diagnoses Esophageal dysphagia Katie Yung MD [address] [place] [address] [facility] PRE ADMISSION [facility] [address] [place] [address] Referral ID Status Reason Start Date Expiration Date V isits Requested Visits Authorized [id number] Authorized 05/15/2024 05/15/2025 1 1 Scheduling Instructions Your surgical team will reach out to you to schedule a pre-admission testing appointment. Question Answer Reason for consult? Recommended PAT Risk Score Specialty Diagnoses / Procedures Referred By Contac t Referred To Contact Cardiology Diagnoses Chronic diastolic heart failure (CMS/HCC) Essential hypertension, benign Dyspnea, unspecified type Procedures Transthoracic Echo (TTE) Complete AL ECHO TRANSTHORC R-T 2D W/WO M-MODE REC F-UP/LMTD AL DOP ECHOCARD COLOR FLOW VELOCITY MAPPING AL DOP ECHOCARD PULSE WAVE W/SPECTRAL F-UP/LMTD STD Debbie Mac MD [address] [place] [address] [address], [address] [address] [address] [address] [address] Referral ID Status Reason Start Date Expiration Date Visits Requested Visits Authorized [id number] Pending Review Perform Procedure 11/27/2023 1 1 Specialty Diagnoses / Procedures Referred By Contac t Referred To Contact Cardiology Diagnoses Persistent atrial fibrillation (CMS/HCC) 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) Chronic diastolic heart failure (CMS/HCC) Essential hypertension, benign Procedures Follow Up In Cardiology Debbie Mac MD [address] [facility] [address], [address] [address] Referral ID Status Reason Start Date Expiration Date V isits Requested Visits Authorized [id number] Authorized 05/31/2023 11/27/2023 1 1 Specialty Diagnoses / Procedures Referred By Contac t Referred To Contact Diagnoses Persistent atrial fibrillation (CMS/HCC) 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) Procedures ECG 12 Lead Debbie Mac MD [address] [place] [address] [address], [address] [address] Referral ID Status Reason Start Date Expiration Date V isits Requested Visits Authorized [id number] Pending Review 05/31/2023 11/27/2023 1 1 Additional Source Comments INFORMATION SOURCE (unrecogn ized section and content) DATE CREATED AUTHOR 08/08/2020 [facility] DATE CREATED AUTHOR AUTHOR'S ORGANIZ ATION 10/10/2021 [facility] DATE CREATED AUTHOR AUTHOR'S ORGANIZ ATION 12/28/2022 [facility] DATE CREATED AUTHOR AUTHOR'S ORGANIZ ATION 01/04/2023 [facility] DATE CREATED AUTHOR AUTHOR'S ORGANIZ ATION 01/30/2023 [facility] DATE CREATED AUTHOR AUTHOR'S ORGANIZ ATION 03/23/2024 [facility] DATE CREATED AUTHOR AUTHOR'S ORGANIZ ATION 03/31/2024 [facility] DATE CREATED AUTHOR AUTHOR'S ORGANIZ ATION 10/16/2024 [facility] DATE CREATED AUTHOR AUTHOR'S ORGANIZ ATION 01/06/2025 [facility] DATE CREATED AUTHOR AUTHOR'S ORGANIZ ATION 03/02/2025 [facility] DATE CREATED AUTHOR AUTHOR'S ORGANIZ ATION 04/30/2025 [facility] DATE CREATED AUTHOR AUTHOR'S ORGANIZ ATION 04/30/2025 [facility] DATE CREATED AUTHOR AUTHOR'S ORGANIZ ATION [facility]/2025 [facility] [facility] DATE CREATED AUTHOR AUTHOR'S ORGANIZ ATION 05/03/2025 [facility] dical Specialists EPIC Care Teams (unrecognized sec tion and content) Team Status: Active Member Role Status Dates Jazmin العلي DO Primary Care Provider Active Team Status: Inactive Member Role Status Dates Jazmin العلي DO Primary Care Provide r, Attending Provider Active Start: April 08, 2024 End: April 08, 2024 Team Status: Inactive Member Role Status Dates Jazmin العلي DO Primary Care Provider Active Start: April 18, 2024 End: April 18, 2024 Amna Powell APRN Attending Provider Active Start: April 18, 2024 End: April 18, 2024 Team Status: Inactive Member Role Status Dates Jazmin العلي DO Primary Care Provider Active Start: April 24, 2024 End: April 24, 2024 Maxwell Medrano MD Attending Provider, Referring Provider Active Start: April 24, 2024 End: April 24, 2024 Team Status: Inactive Member Role Status Dates Jazmin العلي DO Primary Care Provide r, Attending Provider Active Start: May 08, 2024 End: May 08, 2024 Team Status: Inactive Member Role Status Dates Jazmin العلي DO Primary Care Provider Active Start: May 19, 2024 End: May 19, 2024 Amna Powell APRN Attending Provider Active Start: May 19, 2024 End: May 19, 2024 Team Status: Active Member Role Status Dates Jazmin العلي , DO Primary Care Provide r, Attending Provider Active Start: May 28, 2024 Team Status: Inactive Member Role Status Dates Jazmin العلي , DO Primary Care Provide r, Attending Provider Active Start: June 10, 2024 End: June 10, 2024 Team Status: Active Member Role Status Dates Jazmin العلي DO Primary Care Provider Active Start: June 30, 2024 Vic Mendez PA-C Emergency Provider Active Start: June 30, 2024 Shilpa Fenton MD Admit Provider, Att ending Provider Active Start: June 30, 2024 Team Status: Active Member Role Status Dates Jazmin العلي DO Primary Care Provide r, Attending Provider Active Start: February 08, 2024 Team Status: Inactive Member Role Status Dates Jazmin العلي DO Primary Care Provide r, Attending Provider Active Start: February 15, 2024 End: February 15, 2024 Team Status: Inactive Member Role Status Dates Jazmin العلي DO Primary Care Provide r, Attending Provider Active Start: February 18, 2024 End: February 18, 2024 Team Status: Active Member Role Status Dates Jazmin العلي DO Primary Care Provider Active Start: March 21, 2024 Juanito Barragan , Attending Provider Active S tart: March 21, 2024 Team Status: Active Member Role Status Dates Jazmin العلي DO Primary Care Provide r, Attending Provider Active Start: March 21, 2024 Team Status: Active Member Role Status Dates Jazmin العلي DO Primary Care Provider Active Start: March 31, 2024 MICHAEL Joseph Attending Provider Active St art: March 31, 2024 Team Status: Inactive Member Role Status Dates Jazmin العلي DO Primary Care Provider Active Debbie Mac MD Attending Provider Active Team Status: Inactive Member Role Status Dates Jazmin العلي DO Primary Care Provider Active John Mims MD Attending Provider Active Team Status: Active Member Role Status Dates Jazmin العلي DO Primary Care Provider Active Debbie Mac MD Attending Provider Active John Mims MD Referring Provider Active Team Status: Inactive Member Role Status Dates Jazmin العلي DO Primary Care Provider Active Debbie Mac MD Attending Provider Active John Mims MD Referring Provider Active Team Status: Active Member Role Status Dates Jazmin العلي , DO Primary Care Provider Active Luis Lennon , DO Emergency Provider Active Jay Ceja , DO Admit Provider, Attending Pr ovider Active Team Status: Inactive Member Role Status Dates Jazmin العلي , DO Primary Care Provider Active Luis Lennon , DO Emergency Provider Active Jay Ceja , DO Admit Provider Active Anival Easton MD Attending Provider Active Team Status: Active Member Role Status Dates Jazmin العلي , DO Primary Care Provider Active FEROZ Cuevas-Kathie Emergency Provider Active Jay Ceja , DO Admit Provider, Attending Pr ovider Active Team Status: Inactive Member Role Status Dates Jazmin العلي , DO Primary Care Provider Active Indy Rolon PA-C Emergency Provider Active Jay Ceja , DO Admit Provider Active Stephanie Bennett RN Other Provider Active W Kwasi Dee , DO Other Provider Active Jimena Smith MD Other Provider Active Christopher Richardson MD Other Provider Active Debbie Mac MD Referring Provider, Other Prov ider Active Kenny Porter MD Other Provider Active Dee Quach , REELER OPERATOR Other Provider Active Bety Haile MD Other Provider Active Anoop Zhang MD Other Provider Active Isra Pedro MD Other Provider Active Cristiana Chapa , [facility] Other Provider Active Yessy Ackerman MD Other Provider Active Katie Dukes , Attending Provider Active Team Status: Inactive Member Role Status Dates Jazmin العلي , DO Primary Care Provider, Attending Pr ovider Active Team Status: Inactive Member Role Status Dates Jazmin العلي , DO Primary Care Provider Active Wilbur Watson DO Attending Provider Active Chief Security Officer Relationship Specialty Start Date End Date Jazmin العلي DO [address] [facility] [place] [address] PCP - General 08/20/99 Chief Security Officer Relationship Specialty Start Date End Date Jazmin العلي DO [address] [facility] [place] [address] PCP - General Internal Medicine 08/09/23 Chief Security Officer Relationship Specialty Start Date End Date Jazmin العلي DO [address] [place] [address] [place] [address] PCP - General Internal Medicine 08/09/23 Team Status: Inactive Member Role Status Dates Jazmin العلي DO Attending Provider Active Sta rt: July 25, 2023 End: July 25, 2023 Team Status: Inactive Member Role Status Dates Negin Garcia APRN Attending Provider Active Start: August 19, 2023 End: August 19, 2023 Team Status: Inactive Member Role Status Dates Jazmin العلي DO Primary Care Provider Active Start: 2023 End: 2023 Debbie Mac MD Attending Provider Active Start: 2023 End: 2023 Chief Security Officer Relationship Specialty Start Date End Date Jazmin العلي DO [address] [place] [address] [place] [address] PCP - General Internal Medicine 08/09/23 Debbie Mac MD [address] [place] [address] Consulting Physician Cardiology 09/10/23 Team Status: Inactive Member Role Status Dates Jazmin العلي DO Primary Care Provider Active Start: September 24, 2023 End: September 24, 2023 Debbie Mac MD Attending Provider Active Start: September 24, 2023 End: September 24, 2023 Team Status: Inactive Member Role Status Dates Jazmin العلي DO Primary Care Provider Active Start: November 21, 2023 End: November 21, 2023 Yesica Astudillo MD Attending Provider Active Start: November 21, 2023 End: November 21, 2023 Team Status: Inactive Member Role Status Dates Jazmin العلي DO Primary Care Provider Active Start: November 22, 2023 End: November 22, 2023 Christopher Richardson MD Attending Provider Active Start: November 22, 2023 End: November 22, 2023 Team Status: Inactive Member Role Status Dates Jazmin العلي DO Primary Care Provide r, Attending Provider Active Start: November 27, 2023 End: November 27, 2023 Team Status: Active Member Role Status Dates Jazmin العلي DO Primary Care Provider Active Start: [...] Provider Active Start: M ay 2023 Cristiana Chapa [facility] Other Provider Active Sta rt: January 18, 2024 Team Status: Inactive Member Role Status Dates Jazmin العلي DO Primary Care Provider Active Start: [...] Haile MD Other Provider Active Start: Elvira ay 2023 End: January 20, 2024 Anoop Zhang MD Other Provider Active Start: January 18, 2024 End: January 20, 2024 Isra Pedro MD Other Provider Active Start: Elvira tang 2023 End: January 20, 2024 Cristiana Chapa , [facility] Other Provider Active Sta rt: January 18, 2024 End: January 20, 2024 Chief Security Officer Relationship Specialty Start Date End Date Jazmin العلي DO [address] [place] [address] PCP - General Internal Medicine 08/09/23 Debbie Mac MD [address] [facility] [address], [address] [place] [address] Consulting Physician Cardiology 09/10/23 Team Status: Active Member Role Status Dates Jazmin العلي DO Primary Care Provider Active Start: January 21, 2024 MICHAEL Joseph Attending Provider Active St art: January 21, 2024 Team Status: Inactive Member Role Status Dates Jazmin العلي DO Primary Care Provide r, Attending Provider Active Start: January 28, 2024 End: January 28, 2024 Team Status: Active Member Role Status Dates Jazmin العلي DO Primary Care Provider Active Start: February 07, 2024 Juanito Barragan DO Attending Provider Active S tart: February 07, 2024 Team Status: Active Member Role Status Dates Jazmin العلي DO Primary Care Provide r, Attending Provider Active Start: February 07, 2024 Chief Security Officer Relationship Specialty Start Date End Date Jazmin العلي DO [address] [place] [address] PCP - General Internal Medicine 08/09/23 Debbie Mac MD [facility] [facility] [place] [address] Consulting Physician Cardiology 09/10/23 Mawxell Medrano MD [address] [facility] [address] [place] [address] Consulting Physician Cardiology 02/13/24 Team Status: Inactive Member Role Status Dates Jazmin العلي DO Primary Care Provider Active Start: June 30, 2024 End: July 03, 2024 Vic Mendez PA-C Emergency Provider Active Start: June 30, 2024 End: July 03, 2024 Shilpa Fenton MD Admit Provider, Att ending Provider Active Start: June 30, 2024 End: July 03, 2024 Jimena Smith MD Referring Provider Active St art: June 30, 2024 End: July 03, 2024 Team Status: Active Member Role Status Dates Jazmin العلي DO Primary Care Provider Active Start: July 01, 2024 Vic Mendez PA-C Emergency Provider Active Start: July 01, 2024 Shilpa Fenton MD Admit Provider, Ot er Provider Active Start: July 01, 2024 Stephanie Bennett RN Other Provider Active Star t: July 01, 2024 Javed Dee DO Other Provider Active Start : July 01, 2024 Jimena Smith MD Referring Provider, Other Provider Active Start: July 01, 2024 Christopher Richardson MD Other Provider Active Start: June Debbie Mac MD Other Provider Active St art: July 01, 2024 Kenny Porter MD Other Provider Active Start: July 01, 2024 Dee Quach REELER OPERATOR Other Provider Active Start : July 01, 2024 Bety Haile MD Other Provider Active Start: N ovember 2023 Anoop Zhang MD Other Provider Active Start: July 01, 2024 Isra Pedro MD Other Provider Active Start: N ov2023 Cristiana Chapa [facility] Other Provider Active Sta rt: July 01, 2024 Gloria Sierra MD Attending Provider Active Start: July 01, 2024 Team Status: Active Member Role Status Dates Jazmin العلي DO Primary Care Provider Active Start: July 02, 2024 Vic Mendez PA-C Emergency Provider Active Start: July 02, 2024 Shilpa Fenton MD Admit Provider, Ot er Provider Active Start: July 02, 2024 Stephanie Bennett RN Other Provider Active Star t: July 02, 2024 Javed Dee DO Other Provider Active Start : July 02, 2024 Jimena Smith MD Referring Provider, Other Provider Active Start: July 02, 2024 Christopher Richardson MD Other Provider Active Start: June Debbie Mac MD Other Provider Active St art: July 02, 2024 Kenny Porter MD Other Provider Active Start: July 02, 2024 Dee Quach APRN Other Provider Active Start : July 02, 2024 Bety Haile MD Other Provider Active Start: N 2023 Anoop Zhang MD Other Provider Active Start: July 02, 2024 Isra Pedro MD Other Provider Active Start: N 2023 Cristiana Chapa [facility] Other Provider Active Sta rt: July 02, 2024 Gloria Sierra MD Attending Provider Active Start: July 02, 2024 Team Status: Active Member Role Status Dates Jazmin العلي DO Primary Care Provide r, Attending Provider Active Start: July 02, 2024 Team Status: Inactive Member Role Status Dates Jazmin العلي DO Primary Care Provide r, Attending Provider Active Start: July 09, 2024 End: July 09, 2024 Chief Security Officer Relationship Specialty Start Date End Date Jazmin العلي DO [address] [place] [address] PCP - General Internal Medicine 08/09/23 Debbie Mac MD [address] [place] [address] 2, [address] [address] Consulting Physician Cardiology 09/10/23 Maxwell Medrano MD [address] [address] Consulting Physician Cardiology 02/13/24 Chief Security Officer Relationship Specialty Start Date End Date Katie Yung MD [address] [place] [address] [place] [address] Physician Gastroenterology 07/26/24 Chief Security Officer Relationship Specialty Start Date End Date Jazmin العلي DO [address] [place] [address] PCP - General Internal Medicine 08/09/23 Debbie Mac MD [address] [place] [address], [address] [address] Consulting Physician Cardiology 09/10/23 Maxwell Medrano MD [address] [address] Consulting Physician Cardiology 02/13/24 Chief Security Officer Relationship Specialty Start Date End Date Jazmin العلي DO [address] [place] [address] PCP - General Internal Medicine 08/09/23 Debbie Mac MD [address] [place] [address] 2, [address] [address] Consulting Physician Cardiology 09/10/23 Maxwell Medrano MD [address] [place] [address] Consulting Physician Cardiology 02/13/24 Chief Security Officer Relationship Specialty Start Date End Date Jazmin العلي DO [address] [place] [address] PCP - General Internal Medicine 08/09/23 Debbie Mac MD [address] [place] [address] 2, [address] [address] Consulting Physician Cardiology 09/10/23 Maxwell Medrano MD [address] [place] [address] Consulting Physician Cardiology 02/13/24 Sasha Sepulveda RN Care Spike Machine Operator 03/28/24 Chief Security Officer Relationship Specialty Start Date End Date Jazmin العلي DO [address] [place] [address] PCP - General Internal Medicine 08/09/23 Debbie Mac MD [address] [place] [address] 2, [address] [address] Consulting Physician Cardiology 09/10/23 Maxwell Medrano MD [address] [place] [address] Consulting Physician Cardiology 02/13/24 Sasha Sepulveda, extruder operatorSpike Machine Operator 03/28/24 Chief Security Officer Relationship Specialty Start Date End Date Jazmin العلي DO [address] [place] [address] PCP - General Internal Medicine 08/09/23 Debbie Mac MD [address] [facility] [address], [address] [place] [address] Consulting Physician Cardiology 09/10/23 Maxwell Medrano MD [address] [place] [address] [address] [place] [address] Consulting Physician Cardiology 02/13/24 Sasha Sepulveda RN Care Spike Machine Operator 03/28/24 04/28/24 Chief Security Officer Relationship Specialty Start Date End Date Katie Yung MD [address] [place] [address] [place] [address] Physician Gastroenterology 07/26/24 Team Status: Active Member Role Status Dates Jazmin العلي DO Primary Care Provider Active Start: July 21, 2024 Juanito Barragan , Attending Provider Active S tart: July 21, 2024 Team Status: Inactive Member Role Status Dates Jazmin العلي DO Primary Care Provider Active Start: July 21, 2024 End: July 24, 2024 Aroldo Peña MD Admit Provider Active S tart: July 21, 2024 End: July 24, 2024 Fahad Kim DO Attending Provider Active St art: July 21, 2024 End: July 24, 2024 María Joyce MD Other Provider Active Start: Jul End: July 24, 2024 Stephanie Bennett RN Other Provider Active Star t: July 21, 2024 End: July 24, 2024 Javed Dee DO Other Provider Active Start : July 21, 2024 End: July 24, 2024 Jimena Smith MD Other Provider Active Start: July 21, 2024 End: July 24, 2024 Christopher Richardson MD Other Provider Active Start: July 21, 2024 End: July 24, 2024 Debbei Mac MD Other Provider Active St art: July 21, 2024 End: July 24, 2024 Kenny Porter MD Other Provider Active Start: July 21, 2024 End: July 24, 2024 Dee Qucah APRN Other Provider Active Start : July 21, 2024 End: July 24, 2024 Bety Haile MD Other Provider Active Start: 2023 End: July 24, 2024 Anoop Zhang MD Other Provider Active Start: July 21, 2024 End: July 24, 2024 Isra Pedro MD Other Provider Active Start: 2023 End: July 24, 2024 Cristiana Chapa [employer]OLT [employer] Other Provider Active Sta rt: July 21, 2024 End: July 24, 2024 Team Status: Active Member Role Status Dates Jazmin العلي DO Primary Care Provide r, Attending Provider Active Start: July 21, 2024 Team Status: Active Member Role Status Dates Jazmin العلي DO Primary Care Provider Active Start: July 23, 2024 Aroldo Peña MD Admit Provider Active S tart: July 23, 2024 Fahad Kim DO Other Provider Active Start: July 23, 2024 Stephanie Bennett RN Other Provider Active Star t: July 23, 2024 Javed Dee DO Other Provider Active Start : July 23, 2024 Jimena Smith MD Other Provider Active Start: July 23, 2024 Christopher Richardson MD Other Provider Active Start: July 23, 2024 Debbie Mac MD Other Provider Active St art: July 23, 2024 Kenny Porter MD Other Provider Active Start: July 23, 2024 Dee Quach APRN Other Provider Active Start : July 23, 2024 Bety Haile MD Other Provider Active Start: 2023 Anoop Zhang MD Other Provider Active Start: July 23, 2024 Isra Pedro MD Other Provider Active Start: 2023 NAY Whitman-ABI Other Provider Active Sta rt: July 23, 2024 María Joyce MD Attending Provider, Other Provider Active Start: July 23, 2024 Team Status: Inactive Member Role Status Dates Jazmin العلي DO Primary Care Provide r, Attending Provider Active Start: July 31, 2024 End: July 31, 2024 Team Status: Inactive Member Role Status Dates Jazmin العلي DO Primary Care Provide r, Attending Provider Active Start: August 27, 2024 End: August 27, 2024 Chief Security Officer Relationship Specialty Start Date End Date Jazmin العلي DO [address] [place] [address] PCP - General Internal Medicine 08/09/23 Debbie Mac MD [address] [facility] [address], [facility] [address] [place] [address] Consulting Physician Cardiology 09/10/23 Maxwell Medrano MD [address] [place] [address] Consulting Physician Cardiology 02/13/24 Team Status: Inactive Member Role Status Dates Jazmin العلي DO Primary Care Provider Active Start: September 05, 2024 End: September 05, 2024 Yesica Astudillo MD Attending Provider Active Start: September 05, 2024 End: September 05, 2024 Chief Security Officer Relationship Specialty Start Date End Date Jazmin العلي DO [address] [place] [address] PCP - General Internal Medicine 08/09/23 Debbie Mac MD [address] [facility] [address], [address] [address] Consulting Physician Cardiology 09/10/23 Maxwell Medrano MD [address] [place] [address] Consulting Physician Cardiology 02/13/24 Team Status: Inactive Member Role Status Dates Jazmin العلي DO Primary Care Provide r, Attending Provider Active Start: September 09, 2024 End: September 09, 2024 Team Status: Inactive Member Role Status Dates Jazmin العلي DO Primary Care Provide r, Attending Provider Active Start: September 11, 2024 End: September 11, 2024 Team Status: Inactive Member Role Status Dates Jazmin العلي DO Primary Care Provider Active Start: September 12, 2024 End: September 12, 2024 Gracia Craig DO Emergency Provider Active Sta rt: September 12, 2024 End: September 12, 2024 Team Status: Active Member Role Status Dates Jazmin العلي DO Primary Care Provider Active Start: October 01, 2024 Debbie Mac MD Attending Provider Active Start: October 01, 2024 Team Status: Inactive Member Role Status Dates Jazmin العلي DO Primary Care Provide r, Attending Provider Active Start: October 06, 2024 End: October 06, 2024 Chief Security Officer Relationship Specialty Start Date End Date Katie Yung MD [address] [facility] [address] Physician Gastroenterology 07/26/24 Chief Security Officer Relationship Specialty Start Date End Date Katie Yung MD [address] [facility] [place] [address] Physician Gastroenterology 07/26/24 Chief Security Officer Relationship Specialty Start Date End Date Katie Yung MD [address] [facility] [address] [place] [address] Physician Gastroenterology 07/26/24 Chief Security Officer Relationship Specialty Start Date End Date Katie Yung MD [address] [facility] [place] [address] Physician Gastroenterology 07/26/24 Chief Security Officer Relationship Specialty Start Date End Date Katie Yung MD [address] [facility] [place] [address] Physician Gastroenterology 07/26/24 Team Status: Inactive Member Role Status Dates Jazmin العلي DO Primary Care Provide r, Attending Provider Active Start: January 09, 2025 End: January 09, 2025 Team Status: Active Member Role Status Dates Jazmin العلي DO Primary Care Provide r, Attending Provider Active Start: January 21, 2025 Team Status: Inactive Member Role Status Dates Jazmin العلي DO Primary Care Provide r, Attending Provider Active Start: January 21, 2025 End: January 21, 2025 Team Status: Active Member Role Status Dates Jazmin العلي DO Primary Care Provider Active Start: January 22, 2025 Maggie Rod Jr, MD Emergency Provider Active Start: January 22, 2025 Ángel Minaya MD Admit Provider, Atte nding Provider Active Start: January 22, 2025 Team Status: Inactive Member Role Status Dates Jazmin العلي DO Primary Care Provider Active Start: January 22, 2025 End: January 23, 2025 Maggie Rod Jr, MD Emergency Provider Active Start: January 22, 2025 End: January 23, 2025 Ángel Minaya MD Admit Provider Active Start: 2024 End: January 23, 2025 Fahad Kim DO Attending Provider Active St art: January 22, 2025 End: January 23, 2025 Chief Security Officer Relationship Specialty Start Date End Date Jazmin العلي DO [address] [place] [address] PCP - General Internal Medicine 08/09/23 Debbie Mac MD [address] [facility] 2, [facility] [address] [place] [address] Consulting Physician Cardiology 09/10/23 Maxwell Medrano MD [address] [facility] [address] [place] [address] Consulting Physician Cardiology 02/13/24 Chief Security Officer Relationship Specialty Start Date End Date Jazmin العلي DO [address] [facility] [place] [address] PCP - General Internal Medicine 02/14/23 Chief Security Officer Relationship Specialty Start Date End Date Jazmin العلي DO [address] [place] [address] PCP - General Internal Medicine 02/14/23 Chief Security Officer Relationship Specialty Start Date End Date Jazmin العلي DO [address] [place] [address] PCP - General Internal Medicine 02/14/23 Chief Security Officer Relationship Specialty Start Date End Date Jazmin العلي DO [address] [place] [address] PCP - General Internal Medicine 02/14/23 Chief Security Officer Relationship Specialty Start Date End Date Jazmin العلي DO [address] [place] [address] PCP - General Internal Medicine 08/09/23 Debbie Mac MD [address] [place] [address] [address] [place] [address] Consulting Physician Cardiology 09/10/23 Maxwell Medrano MD [address] [place] [address] [address] [place] [address] Consulting Physician Cardiology 02/13/24 Goals (unrecognized section and content) Goals may [...] Procedures ECG 12 Lead Debbie Mac MD [address] [place] [address] 2, [address] [address] Referral ID Status Reason Start Date Expiration Date V isits Requested Visits Authorized [id number] Pending Review 05/31/2023 11/27/2023 1 1 Specialty Diagnoses / Procedures Referred By Ashtyn dobson Referred To Contact Cardiology Diagnoses Chronic diastolic heart failure (CMS/HCC) Essential hypertension, benign Dyspnea, unspecified type Procedures Transthoracic Echo (TTE) Complete AL ECHO TRANSTHORC R-T 2D W/WO M-MODE REC F-UP/LMTD AL DOP ECHOCARD COLOR FLOW VELOCITY MAPPING AL DOP ECHOCARD PULSE WAVE W/SPECTRAL F-UP/LMTD STD Debbie Mac MD [address] [place] [address] 2, [address] [place] [phone] Referral ID Status Reason Start Date Expiration Date Visits Requested Visits Authorized [id number] Authorized Perform Procedure 11/27/2023 1 1 Reason Comments Follow-up 4 month Specialty Diagnoses / Procedures Referred By Ashtyn dobson Referred To Contact Cardiology Diagnoses Persistent atrial fibrillation (CMS/HCC) 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) Chronic diastolic heart failure (CMS/HCC) Essential hypertension, benign Procedures Follow Up In Cardiology Debbie Mac MD [address] [facility] [address], [address] [place] [id number] Referral ID Status Reason Start Date Expiration Date V isits Requested Visits Authorized [id number] Authorized 05/31/2023 11/27/2023 1 1 Reason Comments ekg visit Specialty Diagnoses / Procedures Referred By Contac t Referred To Contact Diagnoses Dyspnea, unspecified type Persistent atrial fibrillation (Multi) Procedures ECG 12 Lead Debbie Mac MD [address] [facility] [address], [address] [place] [address] Referral ID Status Reason Start Date Expiration Date V isits Requested Visits Authorized [id number] Authorized 01/17/2024 01/16/2025 1 1 Reason Comments Follow-up Specialty Diagnoses / Procedures Referred By Contac t Referred To Contact Cardiology Diagnoses Pacemaker Persistent atrial fibrillation (Multi) Essential hypertension, benign Diastolic heart failure, unspecified HF chronicity High risk medication use BMI 28.0-28.9,adult 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 (Multi) Sinus bradycardia Never smoked any substance Procedures Follow Up In Cardiology Maxwell Medrano MD [address] [address] Phone: tel: fax: Referral ID Status Reason Start Date Expiration Date V isits Requested Visits Authorized [id number] Authorized 04/28/2024 04/28/2025 1 1 Reason Onset Date Comments Health Information 06/11/2024 Reason Comments Follow-up Specialty Diagnoses / Procedures Referred By Contac t Referred To Contact Cardiology Diagnoses Pacemaker Persistent atrial fibrillation (Multi) Essential hypertension, benign Diastolic heart failure, unspecified HF chronicity High risk medication use BMI 28.0-28.9,adult 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 (Multi) Sinus bradycardia Never smoked any substance Anticoagulated Procedures Follow Up In Cardiology Cristiana Chapa APRN-NORAH [address] [address] Phone: tel: fax: Maxwell Medrano MD [address] [address] Phone: tel: fax: Referral ID Status Reason Start Date Expiration Date V isits Requested Visits Authorized [id number] Authorized 07/07/2024 07/07/2025 1 1 Reason Onset Date Comments Update 07/21/2024 Reason Onset Date Comments No Show 07/29/2024 Reason Comments Hospital Follow-up [facility] discharge 02/07-afib Specialty Diagnoses / Procedures Referred By Contac t Referred To Contact Diagnoses Persistent atrial fibrillation (Multi) Procedures ECG 12 Lead Debbie Mac MD [address] [place] [address] [address], [address] [address] Referral ID Status Reason Start Date Expiration Date V isits Requested Visits Authorized [id number] Authorized 02/25/2024 02/24/2025 1 1 Reason Comments Follow-up Specialty Diagnoses / Procedures Referred By Contac t Referred To Contact Diagnoses High risk medication use Procedures ECG 12 Lead Maxwell Medrano MD [address] [address] Referral ID Status Reason Start Date Expiration Date V isits Requested Visits Authorized [id number] Authorized 02/28/2024 02/27/2025 1 1 Reason Comments Hospital Follow-up CARDIOVERSION 03/25/24 Specialty Diagnoses / Procedures Referred By Contac t Referred To Contact Diagnoses High risk medication use Procedures ECG 12 lead (Clinic Performed) Maxwell Medrano MD [address] [address] Referral ID Status Reason Start Date Expiration Date V isits Requested Visits Authorized [id number] Authorized 04/17/2024 04/17/2025 1 1 Reason Comments Follow-up 4 months Specialty Diagnoses / Procedures Referred By Contac t Referred To Contact Cardiology Diagnoses Essential hypertension, benign Procedures Follow Up In Cardiology Debbie Mac MD [address] [facility] [address], [address] [address] Debbie Mac MD [address] [facility] [address], [address] [address] Referral ID Status Reason Start Date Expiration Date V isits Requested Visits Authorized [id number] Authorized 11/28/2023 11/27/2024 1 1 Reason Comments Follow-up 2 WEEK Reason Comments Swallowing problems Reason Comments Follow-up [facility] Specialty Diagnoses / Procedures Referred By Contac t Referred To Contact Diagnoses Persistent atrial fibrillation (Multi) Procedures ECG 12 Lead Debbie Mac MD [address] [facility] 2, [facility] [address] [place] [address] Phone: tel: fax: Referral ID Status Reason Start Date Expiration Date V isits Requested Visits Authorized [id number] Authorized 09/05/2024 09/05/2025 1 1 Reason Comments Follow-up Reason Onset Date Comments Heartburn 11/25/2024 Reason Onset Date Comments No Show 12/30/2024 Reason Onset Date Comments No Show 12/31/2024 Reason Comments Limited or partial exam Reason Comments Foot Callouses Toenail Care Reason Comments Follow-up Pacemaker check foll ow up Specialty Diagnoses / Procedures Referred By Contac t Referred To Contact Diagnoses Persistent atrial fibrillation (Multi) Procedures ECG 12 Lead Cristiana Chapa, [employer] OPERATOR[employer] [address] [facility] [address] [place] [address] Phone: tel: fax: Referral ID Status Reason Start Date Expiration Date V isits Requested Visits Authorized [id number] Authorized 02/23/2025 02/23/2026 1 1 Reason Onset Date Comments Food getting stuck in throat 11/11/2024 Swallowing problems 11/11/2024 Reason Comments Toenail Care Continuous Active and Recently Administ ered Medications (unrecognized section and content) Medication Order 05/27/2024 05/28/2024 05/29/2024 sodium chloride 0.9 % iv infusion at 75 mL/hr, Intravenous, CONTINUOUS, Starting on Tracie 05/29/24 at 1230, Until Discontinued 1230 (Due) Continuous Medication Order 12/06/2024 12/07/2024 12/08/2024 sodium chloride 0.9 % iv infusion Intravenous, at 75 mL/hr, CONTINUOUS, Starting on Sun12/08/24 at 1030, Until Discontinued 1030 (Due) PRN Medication Order 12/06/2024 12/07/2024 12/08/2024 acetaminophen (TYLENOL) tablet 650 mg, Oral, PACU ONCE PRN, Starting on Sun12/08/24 at 1002, Until Sun12/08/24 at 1601, Mild Pain (pain score 1,2,3), PACU Now naloxone (NARCAN) 0.4 MG/ML injection 0.4 mg, Intravenous Push, PRN, Starting on Sun12/08/24 at 1002, Until Discontinued, Respiratory Rate Less Than 8 for adults and less than 12 for Peds or for suspected overdose, PACU Now ondansetron (ZOFRAN) 4 MG/2ML injection 4 mg, Intravenous Push, PACU ONCE PRN, Starting on Sun12/08/24 at 1002, Until Sun12/08/24 at 1601, Nausea, Vomiting, PACU Now sodium chloride 0.9 % injection 3 mL, Intravenous Push, PRN, Starting on Sun12/08/24 at 1002, Until Discontinued, For medication administration and blood draw, PACU Now FOR RECORDS PERTAINING TO PATIENTS WHO ARE [...] BE BASED ON THE PRIMARY CLINICAL RECORDS. 20/20 [employer] [facility]. provides no warranty or guarantee of the accuracy or completeness of information in this document.
--- NOTE | 2025-05-03 07:18 | ECG_ITS ---
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
--- NOTE | 2025-05-03 07:18 | XR_ITS ---
The [address] [address] Patient Name: AUSTIN GOLDEN MRN: [id number] date: 1940 Sex: F Assigned Patient Location: ED.MAIN Current Patient Location: ED.MAIN Accession/Order Number: [id number] Exam Date: 05/03/2025 07:28 Report Date: 05/03/2025 08:34 At the request of: DENAE SEE MD Procedure: XR chest 1V Plain film chest Single view HISTORY: Shortness of breath COMPARISON: 07/21/2024 FINDINGS: SUPPORT DEVICES: None POSTSURGICAL CHANGES: Cardiac device remains intact HEART: Cardiomegaly PULMONARY FREDRICK: Hilar vascular prominence MEDIASTINUM: Unremarkable LUNGS AND PLEURA: Developing groundglass parenchymal densities with minimal basilar pleural reactions. No pneumothorax. BONY STRUCTURES: Intact ADDITIONAL FINDINGS None XR/XR chest 1V IMPRESSION: CHF findings Impression dictated by: Juanito Borja M.D. 05/03/2025 8:34 AM Dictation Location[facility] Electronically authenticated by: [id number] Y Date: 05/03/2025 08:34
--- NOTE | 2025-05-03 07:27 | ED.GENADUL1 ---
HPI HPI - General Adult General Chief complaint: Altered Mental Status Time Seen by Provider: 05/03/25 07:12 Mode of arrival: walk-in History of Present Illness HPI narrative: 84-year-old female presents for shortness of breath. She states has been like this since the night before last. She does not complain of fever or productive cough but she feels a heaviness on her chest. She also states it feels like there is ants crawling on the skin of her legs. They are not swollen. She drove herself here but seemed to be a bit confused how to get into the hospital and was found outside trying to determine where to go. She lives by herself. Related Data Home Medications ?Medication ?Instructions ?Recorded ?Confirmed acetaminophen 325 mg capsule 975 mg PO Q6H PRN pain 10/15/23 05/03/25 (Tylenol) atorvastatin 40 mg tablet 40 mg PO .QHS 10/15/23 05/03/25 ropinirole 1 mg tablet 1 mg PO .HS 10/15/23 05/03/25 furosemide 20 mg tablet 20 mg PO .QD 02/07/24 05/03/25 amiodarone 200 mg tablet 200 mg PO Q12H 07/21/24 05/03/25 bupropion HCl 300 mg 24 hr tablet, 300 mg PO QAM 07/21/24 05/03/25 extended release calcium 600 mg (as 1 tab PO DAILY 07/21/24 05/03/25 carbonate)-vitamin D3 20 mcg (800 unit) tablet cholecalciferol (vitamin D3) 25 25 mcg PO DAILY 07/21/24 05/03/25 mcg (1,000 unit) capsule dfodshmohnri-qpyavetw-jqvr 1 tab PO QAM 07/21/24 05/03/25 fumarate 18 mg-folic acid 400 mcg tablet (One-A-Day Women's Complete) duloxetine 30 mg capsule,delayed 30 mg PO DAILY 05/03/25 05/03/25 release furosemide 40 mg tablet 40 mg PO DAILY 05/03/25 05/03/25 metoprolol succinate 50 mg 50 mg PO DAILY 05/03/25 05/03/25 tablet,extended release 24 hr rivaroxaban 20 mg tablet (Xarelto) 20 mg PO DAILY 05/03/25 05/03/25 Previous Rx's ?Medication ?Instructions ?Recorded diltiazem HCl 180 mg 180 mg PO DAILY #30 caps 02/08/24 capsule,extended release 24 hr Allergies Allergy/AdvReac Type Severity Reaction Status Date / Time No Known Drug Allergies Allergy Verified 05/03/25 06:50 Opioid HPI Opioid Management Most Recent Opioid Data: Last Pain Scale 3 10/20/24, 11:29 Last ORT Total Score 1 02/07/24, 15:37 Last ORT Risk Category Low Risk 02/07/24, 15:37 Review of Systems ROS Narrative A ten point review of systems is negative except as noted above. [facility] Medical History (Updated 05/03/25 @ 08:58 by Jordi Barragan MD) Chronic a-fib ?I48.20 - Chronic atrial fibrillation, unspecified (ICD-10) CHF (congestive heart failure) ?I50.9 - Heart failure, unspecified (ICD-10) Diastolic heart failure ?I50.30 - Unspecified diastolic (congestive) heart failure (ICD-10) Depression ?F32.A - Depression, unspecified (ICD-10) Diaphragmatic hernia ?K44.9 - Diaphragmatic hernia without obstruction or gangrene (ICD-10) Lumbar stenosis with neurogenic claudication ?M48.062 - Spinal stenosis, lumbar region with neurogenic claudication (ICD-10) Lumbar spondylosis ?M47.816 - Spondylosis without myelopathy or radiculopathy, lumbar region (ICD-10) Sacroiliitis ?M46.1 - Sacroiliitis, not elsewhere classified (ICD-10) S/P extracorporeal shock wave therapy ?Z98.890 - Other specified postprocedural states (ICD-10) Kidney stone ?N20.0 - Calculus of kidney (ICD-10) Low back pain ?M54.50 - Low back pain, unspecified (ICD-10) Neck pain ?M54.2 - Cervicalgia (ICD-10) Fibromyalgia ?M79.7 - Fibromyalgia (ICD-10) Hiatal hernia ?K44.9 - Diaphragmatic hernia without obstruction or gangrene (ICD-10) SOB (shortness of breath) ?R06.02 - Shortness of breath (ICD-10) High cholesterol ?E78.00 - Pure hypercholesterolemia, unspecified (ICD-10) Hypertension ?I10 - Essential (primary) hypertension (ICD-10) Surgical History Hx laparoscopic cholecystectomy ?Z90.49 - Acquired absence of other specified parts of digestive tract (ICD-10) S/P hernia repair ?Z98.890 - Other specified postprocedural states (ICD-10) ?Z87.19 - Personal history of other diseases of the digestive system (ICD-10) Social History Highest level of school completed/degree received: high school graduate Little interest or pleasure in doing things: not at all Feeling down, depressed, or hopeless: not at all Exam Narrative Exam Narrative: Nurses note and vital signs reviewed and patient is not hypoxic. General: The patient appears in no acute distress. Skin: Warm, dry, no pallor noted. There is no rash noted. Head: Normocephalic, atraumatic Eye: Normal conjunctiva, no drainage Ears, Nose, Mouth, and Throat: oral mucosa is moist. Nares patent. Cardiovascular: Regular Rate and Rhythm Respiratory: Patient is in no distress, no accessory muscle use, lungs are clear to auscultation, no wheezing, rales or rhonchi Back: non-tender GI: Soft and nontender Musculoskeletal: The patient has no evidence of calf tenderness, no pitting edema, symmetrical pulses noted bilaterally Neurological: A&O x4, normal speech Psychiatric: Cooperative, appears mildly and Constitutional Vital Signs, click to edit/add: Last Vital Signs Temp 98.7 F 05/03/25 06:50 Pulse 108 H 05/03/25 08:10 Resp 32 H 05/03/25 08:10 BP 135/82 05/03/25 08:01 Pulse Ox 93 L 05/03/25 08:10 O2 Del Method Nasal Cannula 05/03/25 06:50 O2 Flow Rate 2 05/03/25 06:50 Course Vital Signs Vital signs: Vital Signs Temperature 98.7 F 05/03/25 06:50 Pulse Rate 96 H 05/03/25 06:50 Respiratory Rate 20 05/03/25 06:50 Blood Pressure 123/94 H 05/03/25 06:50 Pulse Oximetry 96 05/03/25 06:50 Oxygen Delivery Method Nasal Cannula 05/03/25 06:50 Oxygen Delivery Flow Rate 2 05/03/25 06:50 Temperature 98.7 F 05/03/25 06:50 Pulse Rate 108 H 05/03/25 08:10 Respiratory Rate 32 H 05/03/25 08:10 Blood Pressure 135/82 05/03/25 08:01 Pulse Oximetry 93 L 05/03/25 08:10 Oxygen Delivery Method Nasal Cannula 05/03/25 06:50 Oxygen Delivery Flow Rate 2 05/03/25 06:50 Medical Decision Making MDM Narrative Medical decision making narrative: Workup shows CHF including the chest x-ray and BNP is elevated at approximately 5600. Initial troponin was minimally elevated but the repeat is essentially unchanged. She was given IV Lasix. At 1 point she became quite restless and was given IV Valium and she is feeling improved now and is able to be admitted. Treatment diagnosis and disposition were discussed with the patient. Differential Diagnosis Differential Diagnosis: CHF, pneumonia, COVID Lab Data Lab results reviewed: Yes I reviewed the patient's lab results Labs: Lab Results 05/03/25 05/03/25 05/03/25 Range/Units 06:57 07:32 07:33 WBC 12.9 H (4.0-11.0) 10^3/uL RBC 4.39 (4.20-5.40) 10^6/uL Hgb 13.1 (12.0-16.0) g/dL Hct 39.2 (36.0-48.0) % MCV 89.3 (81.0-99.0) fL MCH 29.8 (26.7-34.0) pg MCHC 33.4 (29.9-35.2) g/dL RDW 13.7 (11.0-15.0) % Plt Count 240 (150-450) 10^3/uL MPV 10.1 (9.5-13.5) fL Neut % (Auto) 82.8 H (43.0-75.0) % Lymph % (Auto) 8.2 L (20.5-60.0) % [place] % (Auto) 7.9 (1.7-12.0) % Eos % (Auto) 0.6 L (0.9-7.0) % Baso % (Auto) 0.2 (0.2-2.0) % Neut # (Auto) 10.6 H (1.4-6.5) 10^3/uL Lymph # (Auto) 1.1 L (1.2-3.8) 10^3/uL [place] # (Auto) 1.0 H (0.3-0.8) 10^3/uL Eos # (Auto) 0.1 (0.0-0.7) 10^3/uL Baso # (Auto) 0.0 (0.0-0.1) 10^3/uL Abs Immat Gran (auto) 0.04 H (0.00-0.03) 10^3/uL Imm/Tot Granulo (auto) 0.3 (0.0-0.5) % Sodium 140 (136-145) mmol/L Potassium 4.4 (3.5-5.1) mmol/L Chloride 105 (98-107) mmol/L Carbon Dioxide 21.7 (21.0-32.0) mmol/L Anion Gap 17.7 BUN 24.0 H (7.0-18.0) mg/dL Creatinine 1.26 H (0.55-1.02) mg/dL Est GFR ( Amer) 49 L (>=60 mL/min/1.73m^2) Est GFR (Non-Af Amer) 41 L (>=60 mL/min/1.73m^2) BUN/Creatinine Ratio 19.0 Glucose 129 H (74-106) mg/dL Calcium 9.0 (8.5-10.1) mg/dL Troponin I High Sens 68.3 H* (4.0-51.3) pg/mL NT-Pro-B Natriuret Pep 5655.0 H* (<=1800.0) pg/mL Influenza Type A Ag Negative Influenza Type B Ag Negative SARS-CoV-2 Ag (CV2AG) Negative (NEGATIVE) POC Glucose 134 H (74-106) mg/dL 05/03/25 Range/Units 08:27 WBC (4.0-11.0) 10^3/uL RBC (4.20-5.40) 10^6/uL Hgb (12.0-16.0) g/dL Hct (36.0-48.0) % MCV (81.0-99.0) fL MCH (26.7-34.0) pg MCHC (29.9-35.2) g/dL RDW (11.0-15.0) % Plt Count (150-450) 10^3/uL MPV (9.5-13.5) fL Neut % (Auto) (43.0-75.0) % Lymph % (Auto) (20.5-60.0) % [place] % (Auto) (1.7-12.0) % Eos % (Auto) (0.9-7.0) % Baso % (Auto) (0.2-2.0) % Neut # (Auto) (1.4-6.5) 10^3/uL Lymph # (Auto) (1.2-3.8) 10^3/uL [place] # (Auto) (0.3-0.8) 10^3/uL Eos # (Auto) (0.0-0.7) 10^3/uL Baso # (Auto) (0.0-0.1) 10^3/uL Abs Immat Gran (auto) (0.00-0.03) 10^3/uL Imm/Tot Granulo (auto) (0.0-0.5) % Sodium (136-145) mmol/L Potassium (3.5-5.1) mmol/L Chloride (98-107) mmol/L Carbon Dioxide (21.0-32.0) mmol/L Anion Gap BUN (7.0-18.0) mg/dL Creatinine (0.55-1.02) mg/dL Est GFR ( Amer) (>=60 mL/min/1.73m^2) Est GFR (Non-Af Amer) (>=60 mL/min/1.73m^2) BUN/Creatinine Ratio Glucose (74-106) mg/dL Calcium (8.5-10.1) mg/dL Troponin I High Sens 67.2 H* (4.0-51.3) pg/mL NT-Pro-B Natriuret Pep (<=1800.0) pg/mL Influenza Type A Ag Influenza Type B Ag SARS-CoV-2 Ag (CV2AG) (NEGATIVE) POC Glucose (74-106) mg/dL Imaging Data Chest x-ray: Radiologist's impression: ITS Impressions Chest X-Ray 05/03/25 07:18 IMPRESSION: CHF findings Impression dictated by: Juanito Borja M.D. 05/03/2025 8:34 AM Dictation Location: [place] [address] Electronically authenticated by: [id number] Y Date: 05/03/2025 08:34 ECG Data Attestation: I personally reviewed and interpreted this ECG as follows: (EKG on my interpretation shows sinus rhythm with a left bundle branch block and first-degree AV block.) Critical Care Time Critical Care Time Critical Care Time: Yes Total Critical Care Time: 40 Attestation: Due to the high probability of sudden and clinically significant deterioration in the patient's condition he/she required the highest level of my preparedness to intervene urgently I provided critical care time including documentation time, medication orders and management, reevaluation, vital sign assessment, ordering and reviewing of lab tests, ordering and reviewing of x-ray studies, and admission orders. Aggregate critical care time is 40 minutes including only time during which I was engaged in work directly related to his/her care and did not include time spent treating other patients simultaneously. Discharge Plan Discharge Chief Complaint: Altered Mental Status Clinical Impression: Congestive heart failure Patient Disposition: Admitted As Inpatient Time of Disposition Decision: 08:58 Condition: Fair
[2025-05-03 07:40] LABS: Hematocrit 39.2 % (36.0-48.0); Hemoglobin 13.1 g/dL (12.0-16.0); Immature Granulocytes Abs Auto 0.04 10^3/uL (0.00-0.03); Immature Granulocytes Pct Auto 0.3 % (0.0-0.5); Lymphocytes Absolute Auto 1.1 10^3/uL (1.2-3.8); Mean Corpuscular HGB Conc 33.4 g/dL (29.9-35.2); Mean Corpuscular Hemoglobin 29.8 pg (26.7-34.0); Mean Corpuscular Volume 89.3 fL (81.0-99.0); Platelet Count 240 10^3/uL (150-450); Red Blood Count 4.39 10^6/uL (4.20-5.40); White Blood Count 12.9 10^3/uL (4.0-11.0)
[2025-05-03 07:52] LABS: SARS-CoV-2 Ag NEGATIVE (NEGATIVE)
[2025-05-03 08:05] LABS: Anion Gap 17.7; Blood Urea Nitrogen 24.0 mg/dL (7.0-18.0); Calcium 9.0 mg/dL (8.5-10.1); Carbon Dioxide 21.7 mmol/L (21.0-32.0); Chloride 105 mmol/L (98-107); Estimated GFR (African America 49 (>=60 mL/min/1.73m^2); Estimated GFR (Non-African Ame 41 (>=60 mL/min/1.73m^2); Glucose 129 mg/dL (74-106); Potassium 4.4 mmol/L (3.5-5.1); Sodium 140 mmol/L (136-145)
[2025-05-03 08:07] LABS: NT Pro B Type Natriuretic Pept 5655.0 pg/mL (<=1800.0)
[2025-05-03] MEDS: DIAZEPAM 10 MG/2 ML SYRINGE 5 MG IV (08:11)
--- NOTE | 2025-05-03 08:22 | PC.NURSE ---
Pt placed on 2L of O2 on arrival pt was 92% on RA. pt up to 96% with 2L. O2 Titrated up to 4L. O2 SAT dropped to 89% while sleeping. pt SAT up to 95% on 4L
[2025-05-03] MEDS: FUROSEMIDE 40 MG/4 ML VIAL IVP (09:14)
--- OUTSIDE RECORDS SUMMARY | 2025-05-03 10:09 | XMS_ITS | CCD ---
Author Organization [facility] CliniSyny Care Team Providers Care Drug Regulatory Affairs Specialist Name Role Phone JAZMIN العلي Primary Care Unavailable JELANI SORIA Attending Unavailable VIDAL SORIAF Admitting Unavailable SELF, REFERRED Referring Unavailable [facility] Procedure Practitioner Unavailab SANJUANA Maier AM Surgeon Unavailable TANNER HERRERA Surgeon Unavailable [place] Procedure Practitioner Unavailab JELANI Eid Surgeon Unavailable [place] Procedure Practitioner Unavailab Jazmin Buckley E Unavailable [...] Provider DO Jay Ceja Attending Provider [phone] MD Anival Easton Attending Provider DO Jazmin [...] MD Bety Haile Other Provider MD Vicente [facility] Other Provider MD Isra Pedro Other Provider Eduard [facility] Cristiana Rosen Other Provider MD Yessy Ackerman [...] Provider MD Isra Pedro Other Provider Eduard [facility] Cristiana Rosen Other Provider MD Yessy Ackerman Other Provider [phone] DO Katie Dukes Attending Provider Tyson, DO Briggs Attending Provider [phone] Rachel Larios Unavailable DO Wilbur Watson Attending Provider [phone] DO Jazmin العلي Primary Care Provider DO [...] Debbie Mac Attending Provider Tyson Jazmin MORENO [place] Primary Care Provider Negin Garcia Unavailable Tyson Jazmin [place] Primary Care Provider Tyson DO [place] Primary [...] Provider MD Isra Pedro Other Provider Eduard [facility] Cristiana Rosen Other Provider Jazmin العلي DO [...] Emergency Provider Jossy MUIR, Shilpa Admit Provider Shilpa Fenton MD Attending Provider Jimena Smith MD Referring Provider Enedelia MUIR, Katie Unavailable Mu LEE, Sasha Unavailable Unavailable Mu RN, Sasha Unavailable Unavailable Tyson MORENO Jazmin Primary Care Provider Aroldo Peña MD Admit Provider Fahad Kim DO Attending Provider María Joyce MD Other Provider Stephanie Bennett RN Other Provider Unavailable Javed Dee DO Other Provider Dylan MUIR, Christopher Monzon Other Provider [phone] Debbie Mac MD Other Provider O'William MD, Kenny Other Provider Dee Quach APRN Other Provider Bety Haile MD Other Provider Vicente MUIR, Anoop Badillo Other Provider Isra Pedro MD Other Provider Eduard [facility], Cristiana Rosen Other Provider Wilda MUIR, Andrius Attending Provider Jazmin العلي DO Attending Provider Gracia Craig DO Emergency Provider Jazmin العلي DO Primary Care Provider Jimena Smith MD Other Provider Gialisonraabdoul MUIR, Andrius [place] Attending Unavailable Giedraitis , Andrius [place] Attending Unavailable Giedraitis , Andrius [place] Attending Unavailable Giedraitis , Andrius [place] Attending Unavailable Giedraitis , Andrius [place] Attending Unavailable Giedraitis , Andrius [place] Attending Unavailable Debbie Mac MD Unavailable Maxwell Medrano MD Unavailable [phone] KATIE YUNG Referring Unavailable PROVIDER, UNKNOWN Admitting [...] EL Attending Unavailable NIGEL EL Referring Unavailable KAITE YUNG Attending Unavailable KATIE YUNG Admitting Unavailable Jazmin العلي DO Primary Care Provider [phone] Maggie Rod MD Emergency Provider [phone] Ángel Minaya MD Admit Provider Ángel Minaya MD Attending Provider Fahad Kim DO Attending Provider Jazmin العلي DO Primary Care Provider Fahad Kim Attending Unavailable Aroldo Peña Admitting Unavailable Asaad, Imad Consulting Unavailable [facility] Primary Care Unavailable Mischler, Stephanie Consulting Unavailable Javed Dee Consulting Unavailable Sarah, Hess Consulting Unavailable Christopher Richardson Consulting Unavail able Debbie Mac Consulting Unavailable Kenny Porter Consulting Unavailab Dee Jacobs Consulting Unavailable Haile, Bety Consulting Unavailable Vicente, Anoop Najeeb Consulting Unavailab shant Pedro, Tarek Consulting Unavailable Cristiana Chapa Consulting Unavailable [facility] Primary Care Unavailable Jazmin العلي Admitting Unavailable Jazmin العلي Attending Unavailable Rivera, Maxwell N Admitting Unavailable [facility] Primary Care Unavailable Trey Medranoto N Attending Unavailable Rivera, Maxwell N Referring Unavailable [facility] Care Unavailable Giedraitis, Andrius Admitting Unavailable Giedraitis, Andrius Attending Unavailable Gracia Craig Attending Unavailable [facility] Primary Care Unavailable Gracia Craig Admitting Unavailable Yarelichler, Stephanie Consulting Unavailable [facility] Primary Care Unavailable Ángel Minaya Admitting Unavailable [...] Hess Referring Unavailable Tosin Fentona Attending Unavailable [facility] Primary Care Unavailable Jossy Shilpa Admitting Unavailable [...] (1 source) apixaban Drug Allergy 07-26-20 [facility] Repository (20 sources) Sulfonamides (Antibiotic); Translations: [SULFA (SULFONAMIDE ANTIBIOTICS)] Drug allergy (disorder) 07-29-20 13 Itching [facility] Repository (20 sources) Sulfonamides (Antibiotic); Translations: [Sulfa Drugs] Allergy to drug (finding) [facility] 250 DO Work Phone: (20 sources) fentaNYL; Translations: [fentanyl] Drug Allergy 08-22-19 22 [facility] (20 sources) Sulfonamides (Antibiotic) Propensity to adverse reactions Unknown [employer] Other (1 source) fentaNYL Drug Allergy 08-06-20 [facility] Repository (1 source) patient allergy list reviewed by nurse or physicia Propensity to adverse reactions 04-15-20 Comment:Done [employer] Other (20 sources) Substance with sulfonamide structure and antibacterial mechanism of action (substance) Drug allergy 02-20-20 23 Unknown [employer] Other (1 source) [employer]entaNYL Drug Allergy 04-18-20 [facility] Repository (1 source) Sulfonamides (Antibiotic) Drug allergy (disorder) 04-18-20 [facility] Repository Medications Current Medications Medication Drug Class(es) Dates Sig (Normalized) Sig (Original) acetaminophen 325 mg oral tablet (20 sources) Start: 12-08-2024 End: 12-08-2024 650 mg, Oral, PACU ONCE PRN, Starting on Sun12/08/24 at 1002, Until Sun12/08/24 at 1601, Mild Pain (pain score 1,2,3), PACU Now Start: 04-01-2024 take 1 capsule by mo [facility] every six hours as needed for pain [...] sources) Opioid Agonist Start: 11-24-2023 HYDROcodone-ac etaminophen ([place]) 10-325 MG tablet 1 tablet 11/24/2023 Active [...] 2021 12:29pm Start: 04-11-2021 End: 07-03-2021 take [id number] tablet by mouth once daily Amiodarone 200 [...] once daily. Active take 2 tablets by nm ut every twenty-four hours Vitamin D3 10 [...] 2021 12:29pm take 1 capsule by mo [facility] once daily Acidophilus Oral Capsule [...] And Nails (Biotin)) 10,000 mcg Tablet,Chewable Discontinued 61372 MCG PO Every morning February 25, 2023 11:00pm November 24, 2023 9:06am Start: 02-26-2023 End: 11-24-2023 take 1 tablet by mouth once daily in the morning Biotin (Hair, Skin And Nails (Biotin)) 10,000 mcg Tablet,Chewable Discontinued 47090 MCG PO Every morning February 26, 2023 12:00am November 24, 2023 10:06am Start: 02-26-2023 take 1 tablet by nghia th once daily in the morning Biotin (Hair, Skin And Nails (Biotin)) 10,000 mcg Tablet,Chewable Active 52286 MCG PO Every morning February 25, 2023 11:00pm Start: 02-26-2023 take 1 tablet by nghia th once daily in the morning Biotin (Hair, Skin And Nails (Biotin)) 10,000 mcg Tablet,Chewable Active 71645 MCG PO Every morning February 26, 2023 [...] DO Start : 01-May-2022 Complete Vit A-Vit F-Tgzxfs-Qwce-Copper (Pkle-Gzge-Bvim(Vit A,C-Biotin)) 2,500 unit-100 mg-2,500 mcg capsule (20 sources) Start: 01-18-2024 End: 05-08-2024 take 1 capsule by mouth once daily Vit A-Vit T-Spxcxj-Wmbc-Copper (Rgqg-Kfed-Kagw(Vit A,C-Biotin)) 2,500 unit-100 mg-2,500 mcg capsule Discontinued 1 CAP PO Daily January 17, 2024 11:00pm May 08, 2024 11:06am Start: 01-18-2024 End: 05-08-2024 take 1 capsule by mouth once daily Vit A-Vit X-Vgxkbq-Repd-Copper (Ujtg-Xszk-Ycbl(Vit A,C-Biotin)) 2,500 unit-100 mg-2,500 mcg capsule Discontinued 1 CAP PO Daily January 18, 2024 12:00am May 08, 2024 12:06pm Start: 01-18-2024 take 1 capsule by [facility] once daily Vit A-Vit S-Nebsxm-Alct-Copper (Ifim-Vrds-Bmrv(Vit A,C-Biotin)) 2,500 unit-100 mg-2,500 mcg capsule Active [...] [Coronary atherosclerosis of unspecified type of vessel, holy cross or graft] Onset: 3 04-28-2023 Chronic Comment [...] current use of drug therapy; 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 https://jasn.asnjournals.org/content//ASN.040545 0922 [facility] POCT CREATININE AND GFRon Creatinine [Mass/Vol] 1.50 mg/dL High 0.60 - 1.30 mg/dL [facility] Comment on above: Hydroxyurea can caus e significant interference with creatinine measurement using the i-STAT device. An alternate method of creatinine measurement must be used in patients treated with hydroxyurea. Basic metabolic 2000 panelon 04-28-2025 Anion gap [Moles/Vol] 12 mmol/L Normal 10-20 [facility] Comment on above: Performed By: #### 2 4321-2 #### ANAIBELIRANDALL KENT ([id number]) [facility] ([facility]) [address] [place] [address] Calcium [Mass/Vol] 9.1 mg/dL Normal 8.6-10.3 [facility] Comment on above: Performed By: #### 2 4321-2 #### ANAIBELIRANDALL THAIMARIA DEL ROSARIO PULIDO ([id number]) [facility] ([facility]) [address] [place] [address] Chloride [Moles/Vol] 102 mmol/L Normal 98-107 [facility] Comment on above: Performed By: #### 2 4321-2 #### JUANIBELIRANDALL THAI TESS ([id number]) [facility] ([facility]) [address] [place] [address] CO2 [Moles/Vol] 29 mmol/L Normal 21-32 [facility] Comment on above: Performed By: #### 2 4321-2 #### ANAIBELIRANDALL THAI TESS ([id number]) [facility] ([facility]) [address] [place] [address] Creatinine [Mass/Vol] 1.62 mg/dL High 0.50-1.05 [facility] Comment on above: Performed By: #### 2 4321-2 #### ALEK KENT ([id number]) [facility] ([facility]) [address] [place] [address] Glomerular filtration rate 32 mL/min/1.73m*2 Low >60 [facility] Comment on above: Result Comment: Calc ulations of estimated GFR are performed using the 2020 CKD-EPI Study Refit equation without the race variable for the IDMS-Traceable creatinine methods. https://jasn.asnjournals.org/content/early//ASN.628404 5348 Performed By: #### 2 4321-2 #### ALEK KENT ([id number]) [facility] ([facility]) [address] [place] [address] 27892 Glucose [Mass/Vol] 104 mg/dL High 74-99 [facility] Comment on above: Performed By: #### 2 4321-2 #### ALEK KENT ([id number]) [facility] ([facility]) [address] [place] [address]69 Potassium [Moles/Vol] 4.1 mmol/L Normal 3.5-5.3 [facility] Comment on above: Performed By: #### 2 4321-2 #### ALEK KENT ([id number]) [facility] ([facility]) [address] [place] [address] 77256 Sodium [Moles/Vol] 139 mmol/L Normal 136-145 [facility] Comment on above: Performed By: #### 2 4321-2 #### ALEK KENT ([id number]) [facility] ([facility]) [address] [place] [address] 30887 Urea nitrogen [Mass/Vol] 38 mg/dL High 6-23 [facility] Comment on above: Performed By: #### 2 4321-2 #### ALEK KENT ([id number]) [facility] ([facility]) [address] [place] [address] 86906 CBC panel Auto (Bld)on 04-28 Erythrocyte distribution width (RBC) [Ratio] 13.8 % Normal 11.5-14.5 [facility] Comment on above: Performed By: #### 5 8410-2 #### ALEK KENT ([id number]) [facility] ([facility]) [address] [place] [address] 55451 Hematocrit (Bld) [Volume fraction] 43.7 % Normal 36.0-46.0 [facility] Comment on above: Performed By: #### 5 8410-2 #### ALEK KENT ([id number]) [facility] ([facility]) [address] [place] [address] 09007 Hemoglobin (Bld) [Mass/Vol] 13.5 g/dL Normal 12.0-16.0 [facility] Comment on above: Performed By: #### 5 8410-2 #### ALEK KENT ([id number]) [facility] ([facility]) [address] [place] [address] 64426 MCH (RBC) [Entitic mass] 29.5 pg Normal 26.0-34.0 [facility] Comment on above: Performed By: #### 5 8410-2 #### ALEK KENT ([id number]) [facility] ([facility]) [address] [place] [address] 92254 MCHC (RBC) [Mass/Vol] 30.9 g/dL Low 32.0-36.0 [facility] Comment on above: Performed By: #### 5 8410-2 #### ALEK KENT ([id number]) [facility] ([facility]) [address] [place] [address] 82196 MCV (RBC) [Entitic vol] 95 fL Normal 80-100 [facility] Comment on above: Performed By: #### 5 8410-2 #### ALEK KENT ([id number]) [facility] ([facility]) [address] [place] [address] 40970 Nucleated RBC/100 WBC (Bld) [Ratio] 0.0 /100 WBCs Normal 0.0-0.0 [facility] Comment on above: Performed By: #### 5 8410-2 #### ALEK KENT ([id number]) [facility] ([facility]) [address] [place] [address] 82323 Platelets (Bld) [#/Vol] 244 x10*3/uL Normal 150-450 [facility] Comment on above: Performed By: #### 5 8410-2 #### ALEK KENT ([id number]) [facility] ([facility]) [address] [place] [address] 13732 RBC (Bld) [#/Vol] 4.58 x10*6/uL Normal 4.00-5.20 [facility] Comment on above: Performed By: #### 5 8410-2 #### ALEK KENT ([id number]) [facility] ([facility]) [address] [place] [address] 25595 WBC (Bld) [#/Vol] 6.4 x10*3/uL Normal 4.4-11.3 [facility] Comment on above: Performed By: #### 5 8410-2 #### ALEK KENT ([id number]) [facility] ([facility]) [address] [place] [address] 85501 Coagulation tissue factor in ducedon 04-28-2025 PT Coag (PPP) [Time] 16.3 s High 9.8-12.4 [facility] Comment on above: Performed By: #### 5 902-2 #### ALEK KENT ([id number]) [facility] ([facility]) [address] [place] [address] 21826 Creatinineon 04-28-2025 Creatinine [Mass/Vol] 1.69 mg/dL High 0.50-1.05 [facility] Comment on above: Performed By: #### 2 160-0 #### ROXY ARORA ([id number]) [facility] ([facility]) [address] [place] [address] Creatinine [Mass/Vol]on Glomerular filtration rate 30 mL/min/1.73m*2 Low >60 [facility] Comment on above: Result Comment: Calc ulations of estimated GFR are performed using the 2020 CKD-EPI Study Refit equation without the race variable for the IDMS-Traceable creatinine methods. https://jasn.asnjournals.org/content//ASN.853349 3943 Performed By: #### 2 160-0 #### ROXY ARORA ([id number]) [facility] ([facility]) [address] [place] [address] PT Coag (PPP) [Time]on 04-28 INR Coag (PPP) [Relative time] 1.5 High 0.9-1.1 [facility] Comment on above: Performed By: #### 5 902-2 #### ALEK KENT ([id number]) [facility] (C) [address] [place] [address] Cardiac Device Check - Remot davin 01-30-2025 [facility] Work Phone: Radiology Study observation (narrative) [facility] Work Phone: Alanine aminotransferase [En zymatic activity/volume] in Serum or PlasmaOrdered By: Ángel Minaya on 01-23-2025 ALT [Catalytic activity/Vol] Alanine aminotransferase [Enzymatic activity/volume] in Serum or Plasma 7-52 [facility] Albumin [Mass/volume] in Ser um or Plasma by Bromocresol green (BCG) dye binding methoOrdered By: Ángel Minaya on 01-23-2025 Albumin BCG dye [Mass/Vol] Albumin [Mass/volume] in Serum or Plasma by Bromocresol green (BCG) dye binding metho 3.5-5.7 [facility] Alkaline phosphatase [Enzyma tic activity/volume] in Serum or PlasmaOrdered By: Ángel Minaya on 01-23-2025 ALP [Catalytic activity/Vol] Alkaline phosphatase [Enzymatic activity/volume] in Serum or Plasma 34-104 [facility] Amphetamine Screen Ql (U)Ord ered By: Ángel Minaya on 01-23-2025 Amphetamines Ql (U) Amphetamines screen Negativ e [facility] Aspartate aminotransferase [ Enzymatic activity/volume] in Serum or PlasmaOrdered By: Ángel Minaya on 01-23-2025 AST [Catalytic activity/Vol] Aspartate aminotransferase [Enzymatic activity/volume] in Serum or Plasma 13-39 [facility] Barbiturates [Presence] in U rine by Screen methodOrdered By: Ángel Minaya on 01-23-2025 Barbiturates Screen Ql (U) Barbiturates [Presence] in Urine by Screen method Negative [facility] Basophils Auto (Bld) [#/Vol] Ordered By: Ángel Minaya on 01-23-2025 Basophils (Bld) [#/Vol] Automated basophil count 0.0-0.2 [facility] Basophils/100 WBC Auto (Bld) Ordered By: Ángel Minaya on 01-23-2025 Basophils/100 WBC (Bld) Automated basophil % . [facility] Benzodiazepines Screen Ql (U )Ordered By: Ángel Minaya on 01-23-2025 Benzodiazepines Ql (U) Benzodiazepines [Presence] in Urine by Screen method Negative [facility] Benzoylecgonine [Presence] i n Urine by Screen methodOrdered By: Ángel Minaya on 01-23-2025 Benzoylecgonine Screen Ql (U) Benzoylecgonine [Presence] in Urine by Screen method Negative [facility] Bilirubin.total [Mass/volume ] in Serum or PlasmaOrdered By: Ángel Minaya on 01-23-2025 Bilirubin [Mass/Vol] Bilirubin.total [Mass/volume] in Serum or Plasma 0.3-1.0 [facility] Calcium [Mass/volume] in Ser um or PlasmaOrdered By: Ángel Minaya on 01-23-2025 Calcium [Mass/Vol] Calcium [Mass/volume ] in Serum or Plasma 8.6-10.3 [facility] Cannabinoids [Presence] in U rine by Screen methodOrdered By: Ángel Minaya on 01-23-2025 Cannabinoids Screen Ql (U) Cannabinoids [Presence] in Urine by Screen method Negative [facility] Comment on above: These are unconfirme d [...] l [Moles/volume] in Serum or Plasma 21.0-31.0 [facility] Chloride [Moles/volume] in S vaughn or PlasmaOrdered By: Ángel Minaya on 01-23-2025 Chloride [Moles/Vol] Chloride [Moles/vol ume] in Serum or Plasma 98-107 [facility] Complete Blood Count Auto Di ffon 01-23-2025 Basophils (Bld) [#/Vol] 0.1 10*3/uL Normal 0.0-0.2 [facility] Comment on above: Result Comment: PERF ORMED BY: [facility] [address] [place] [address] PATHOLOGIST COOKER SULFATE REENA JIN M.D. Performed By: #### P HOS, MG, CMP, CBC ####[address] Basophils/100 WBC (Bld) 0.9 % Normal . [facility] Comment on above: Performed By: #### P HOS, MG, CMP, CBC ####[address] Eosinophils (Bld) [#/Vol] 0.2 10*3/uL Normal 0.0-0.45 [facility] Comment on above: Performed By: #### P HOS, MG, CMP, CBC ####[address] Eosinophils/100 WBC (Bld) 2.5 % Normal . [facility] Comment on above: Performed By: #### P HOS, MG, CMP, CBC ####[address] Erythrocyte distribution width (RBC) [Ratio] 13.9 % Normal 11.9-15.3 [facility] Comment on above: Performed By: #### P HOS, MG, CMP, CBC ####[address] Hematocrit (Bld) [Volume fraction] 36.5 % Normal 34.0-46.4 [facility] Comment on above: Performed By: #### P HOS, MG, CMP, CBC ####[address] Hemoglobin (Bld) [Mass/Vol] 12.4 g/dL Normal 11.8-15.4 [facility] Comment on above: Performed By: #### P HOS, MG, CMP, CBC ####[address] Lymphocytes (Bld) [#/Vol] 1.1 10*3/uL Normal 1.00-4.8 [facility] Comment on above: Performed By: #### P HOS, MG, CMP, CBC ####[address] Lymphocytes/100 WBC (Bld) 15.4 % Normal . [facility] Comment on above: Performed By: #### P HOS, MG, CMP, CBC ####[address] MCH (RBC) [Entitic mass] 30.5 pg Normal 24.7-34.3 [facility] Comment on above: Performed By: #### P HOS, MG, CMP, CBC ####[address] MCV (RBC) [Entitic vol] 89.8 fL Normal 80-100 [facility] Comment on above: Performed By: #### P HOS, MG, CMP, CBC ####[address] Mean Corpuscular HGB Conc 34.0 g/dL Normal 32.0-35.0 [facility] Comment on above: Performed By: #### P HOS, MG, CMP, CBC ####[address] Monocytes (Bld) [#/Vol] 0.5 10*3/uL Normal 0.0-0.8 [facility] Comment on above: Performed By: #### P HOS, MG, CMP, CBC ####[address] Monocytes/100 WBC (Bld) 23.36 % High 0.00-20.00 [facility] Comment on above: Result Comment: For adults in ED, MDW > 20.0 may be associated with a higher risk of sepsis during the first 12 hrs of hospital admission Performed By: #### P HOS, MG, CMP, CBC ####[address] Monocytes/100 WBC (Bld) 7.6 % Normal . [facility] Comment on above: Performed By: #### P HOS, MG, CMP, CBC ####[address] Neutrophils (Bld) [#/Vol] 5.2 10*3/uL Normal 1.8-7.7 [facility] Comment on above: Performed By: #### P HOS, MG, CMP, CBC ####[address] Neutrophils/100 WBC (Bld) 73.6 % Normal . The [facility] Comment on above: Performed By: #### P HOS, MG, CMP, CBC ####[address] NRBC% 0.1 /100{WBC} Normal 0-0.5 [facility] Comment on above: Performed By: #### P HOS, MG, CMP, CBC ####[address] Platelet mean volume (Bld) [Entitic vol] 9.1 fL Normal 6.3-10.7 [facility] Comment on above: Performed By: #### P HOS, MG, CMP, CBC ####[address] Platelets (Bld) [#/Vol] 224 10*3/uL Normal 150-450 [facility] Comment on above: Performed By: #### P HOS, MG, CMP, CBC ####[address] RBC (Bld) [#/Vol] 4.06 10*6/uL Normal 3.60-5.00 [facility] Comment on above: Performed By: #### P HOS, MG, CMP, CBC ####[address] WBC (Bld) [#/Vol] 7.0 10*3/uL Normal 3.8-11.6 [facility] Comment on above: Performed By: #### P HOS, MG, CMP, CBC ####[address] Comprehensive Metabolic Pane violeta 01-23-2025 Albumin [Mass/Vol] 3.6 g/dL Normal 3.5-5.7 [facility] Comment on above: Performed By: #### P HOS, MG, CMP, CBC ####[address] Albumin/Globulin [Mass ratio] 1.4 {ratio} Normal [facility] Comment on above: Performed By: #### P HOS, MG, CMP, CBC ####[address] ALP [Catalytic activity/Vol] 71 U/L Normal 34-104 [facility] Comment on above: Performed By: #### P HOS, MG, CMP, CBC ####[address] ALT [Catalytic activity/Vol] 20 U/L Normal 7-52 [facility] Comment on above: Performed By: #### P HOS, MG, CMP, CBC ####[address] Anion gap [Moles/Vol] 11.4 mmol/L Normal 6.0-15.0 Th e [facility] Comment on above: Performed By: #### P HOS, MG, CMP, CBC ####[address] AST [Catalytic activity/Vol] 24 U/L Normal 13-39 [facility] Comment on above: Performed By: #### P HOS, MG, CMP, CBC ####[address] Bilirubin [Mass/Vol] 1.0 mg/dL Normal 0.3-1.0 [facility] Comment on above: Performed By: #### P HOS, MG, CMP, CBC ####[address] Calcium [Mass/Vol] 8.6 mg/dL Normal 8.6-10.3 [facility] Comment on above: Performed By: #### P HOS, MG, CMP, CBC ####[address] Chloride [Moles/Vol] 105 mmol/L Normal 98-107 [facility] Comment on above: Performed By: #### P HOS, MG, CMP, CBC ####[address] CO2 [Moles/Vol] 27.3 mmol/L Normal 21.0-31.0 [facility] Comment on above: Performed By: #### P HOS, MG, CMP, CBC ####[address] Creatinine [Mass/Vol] 1.20 mg/dL Normal 0.60-1.20 [facility] Comment on above: Performed By: #### P HOS, MG, CMP, CBC ####[address] Creatinine Clr Calc Pharmacy 28.86 Normal [facility] Comment on above: Performed By: #### P HOS, MG, CMP, CBC ####[address] Estimated GFR 45.195 mL/Min Normal [facility] Comment on above: Performed By: #### P HOS, MG, CMP, CBC ####[address] Globulin (S) [Mass/Vol] 2.5 g/dL Normal [facility] Comment on above: Performed By: #### P HOS, MG, CMP, CBC ####[address] Glucose [Mass/Vol] 85 mg/dL Normal 70-100 [facility] Comment on above: Result Comment: [facility] Glucose Reference Range is dependent on time and content of last meal. Glucose of more than 200 mg/dL in a nonstressed, ambulatory subject supports the diagnosis of Diabetes Mellitus. ADA recommended reference range Performed By: #### P HOS, MG, CMP, CBC ####[address] Potassium [Moles/Vol] 3.7 mmol/L Normal 3.5-5.1 [facility] Comment on above: Performed By: #### P HOS, MG, CMP, CBC ####[address] Protein [Mass/Vol] 6.1 g/dL Low 6.4-8.9 [facility] Comment on above: Performed By: #### P HOS, MG, CMP, CBC ####[address] Sodium [Moles/Vol] 140 mmol/L Normal 136-145 [facility] Comment on above: Performed By: #### P HOS, MG, CMP, CBC ####[address] Urea nitrogen [Mass/Vol] 25 mg/dL Normal 7-25 [facility] Comment on above: Performed By: #### P HOS, MG, CMP, CBC ####[address] Creatinine [Mass/volume] in Serum or PlasmaOrdered By: Ángel Minaya on 01-23-2025 Creatinine [Mass/Vol] Creatinine [Mass/v olume] in Serum or Plasma 0.60-1.20 [facility] Drug Screen,Urineon 01-24-20 25 Amphetamine Screen,Urine Negative Normal Negative [facility] Comment on above: Performed By: #### U RDS ####[address] Barbiturate Screen,Urine Negative Normal Negative [facility] Comment on above: Performed By: #### U RDS ####[address] Benzodiazepines Screen,Urine Negative Normal Negative [facility] Comment on above: Performed By: #### U RDS ####[address] Cannabinoid Screen,Urine Negative Normal Negative [facility] Comment on above: Result Comment: Thes e are unconfirmed results and should not be used for legal purposes. Drug Cut-Off Concentration: AMPH 1000 ng/mL RAMESH 200 ng/mL ANAI 200 ng/mL COCM 300 ng/mL OP 300 ng/mL PCP 25 ng/mL THC 20 ng/mL PERFORMED BY: [facility] [address] [place] [address] PATHOLOGIST COOKER SULFATE REENA JIN M.D. Performed By: #### U RDS ####[place] [id number] [facility] Cocaine Screen,Urine Negative Normal Negative [facility] Comment on above: Performed By: #### U RDS ####[place] [id number] [facility] Opiate Screen,Urine Positive High Negative [facility] Comment on above: Performed By: #### U RDS ####[address] Phencyclidine Screen,Urine Negative Normal Negative [facility] Comment on above: Performed By: #### U RDS ####[address] Eosinophils Auto (Bld) [#/Vo l]Ordered By: Ángel Minaya on 01-23-2025 Eosinophils (Bld) [#/Vol] Automated eosinophil count 0.0-0.45 [facility] Eosinophils/100 WBC Auto (Bl d)Ordered By: Ángel Minaya on 01-23-2025 Eosinophils/100 WBC (Bld) Automated eosinophil % . [facility] Erythrocyte distribution wid th Auto (RBC) [Ratio]Ordered By: Ángel Minaya on 01-23-2025 Erythrocyte distribution width (RBC) [Ratio] Erythrocyte distribution width [Ratio] by Automated count 11.9-15.3 [facility] Globulin Calc (S) [Mass/Vol] Ordered By: Ángel Minaya on 01-23-2025 Globulin (S) [Mass/Vol] Serum globulin measurement by calculation (mass/volume) [facility] Glucose [Mass/volume] in Ser um or PlasmaOrdered By: Ángel Minaya on 01-23-2025 Glucose [Mass/Vol] Glucose [Mass/volume ] in Serum or Plasma 70-100 [facility] Comment on above: ADA recommended refe rence rangeRandom Glucose Reference Range is dependent on time and content of last meal. Glucose of more than 200 mg/dL in a nonstressed, ambulatory subject supports the diagnosis of Diabetes Mellitus. Hematocrit Auto (Bld) [Volum e fraction]Ordered By: Ángel Minaya on 01-23-2025 Hematocrit (Bld) [Volume fraction] Hematocrit [Volume Fraction] of Blood by Automated count 34.0-46.4 [facility] Hemoglobin [Mass/volume] in BloodOrdered By: Ángel Minaya on 01-23-2025 Hemoglobin (Bld) [Mass/Vol] Hemoglobin [Mass/volume] in Blood 11.8-15.4 [facility] Leukocytes [#/volume] correc anne marie for nucleated erythrocytes in Blood by Automated counOrdered By: Ángel Minaya on 01-23-2025 WBC corrected for nucl RBC Auto (Bld) [#/Vol] Leukocytes [#/volume] corrected for nucleated erythrocytes in Blood by Automated coun 3.8-11.6 [facility] Lymphocytes Auto (Bld) [#/Vo l]Ordered By: Ángel Minaya on 01-23-2025 Lymphocytes (Bld) [#/Vol] Lymphocytes [#/volume] in Blood by Automated count 1.00-4.8 [facility] Lymphocytes/100 WBC Auto (Bl d)Ordered By: Ángel Minaya on 01-23-2025 Lymphocytes/100 WBC (Bld) Lymphocytes/100 leukocytes in Blood by Automated count . [facility] MCH Auto (RBC) [Entitic mass ]Ordered By: Ángel Minaya on 01-23-2025 MCH (RBC) [Entitic mass] MCH [Entitic mass] by Automated count 24.7-34.3 [facility] MCHC Auto (RBC) [Mass/Vol]Or dered By: Ángel Minaya on 01-23-2025 MCHC (RBC) [Mass/Vol] MCHC [Mass/volume] by Automated count 32.0-35.0 [facility] MCV Auto (RBC) [Entitic vol] Ordered By: Ángel Minaya on 01-23-2025 MCV (RBC) [Entitic vol] MCV [Entitic volume] by Automated count 80-100 [facility] Magnesiumon 01-23-2025 Magnesium [Mass/Vol] 2.0 mg/dL Normal 1.9-2.7 [facility] Comment on above: Result Comment: PERF ORMED BY: [facility] [address] [place] [id number] PATHOLOGIST COOKER SULFATE REENA JIN M.D. Performed By: #### P HOS, MG, CMP, CBC ####[facility] [id number] [place] [id number] [facility] Magnesium [Mass/volume] in S vaughn or PlasmaOrdered By: Ángel Minaya on 01-23-2025 Magnesium [Mass/Vol] Magnesium [Mass/vol ume] in Serum or Plasma 1.9-2.7 [facility] Monocyte distribution width [Entitic volume] in Blood by AutomatedOrdered By: Ángel Minaya on 01-23-2025 Monocyte distribution width Auto (Bld) [Entitic vol] Monocyte distribution width [Entitic volume] in Blood by Automated High 0.00-20.00 [facility] Comment on above: For adults in ED, MD W > 20.0 may be associated with a higher risk of sepsis during the first 12 hrs of hospital admission Monocytes Auto (Bld) [#/Vol] Ordered By: Ángel Minaya on 01-23-2025 Monocytes (Bld) [#/Vol] Automated blood monocyte count 0.0-0.8 [facility] Monocytes/100 WBC Auto (Bld) Ordered By: Ángel Minaya on 01-23-2025 Monocytes/100 WBC (Bld) Automated monocyte % . [facility] Neutrophils Auto (Bld) [#/Vo l]Ordered By: Ángel Minaya on 01-23-2025 Neutrophils (Bld) [#/Vol] Neutrophils [#/volume] in Blood by Automated count 1.8-7.7 [facility] Neutrophils/100 WBC Auto (Bl d)Ordered By: Ángel Minaya on 01-23-2025 Neutrophils/100 WBC (Bld) Automated neutrophil % . [facility] No Panel InformationOrdered By: Ángel Mianya on 01-23-2025 Estimated GFR (CKD-EPI) 45.195 mL/Min [facility] Creatinine Clearance (Chem 28.86 [facility] Nucleated erythrocytes [Pres ence] in Blood by Automated countOrdered By: Ángel Minaya on 01-23-2025 Nucleated RBC Auto Ql (Bld) Nucleated erythrocytes [Presence] in Blood by Automated count 0-0.5 [facility] Opiates [Presence] in Urine by Screen methodOrdered By: Ángel Minaya on 01-23-2025 Opiates Screen Ql (U) Opiates [Presence] in Urine by Screen method High Negative [facility] Phencyclidine Screen Ql (U)O rdered By: Ángel Minaya on 01-23-2025 Phencyclidine Ql (U) Phencyclidine [Pres ence] in Urine by Screen method Negative [facility] Phosphate [Mass/volume] in S vaughn or PlasmaOrdered By: Ángel Minaya on 01-23-2025 Phosphate [Mass/Vol] Phosphate [Mass/vol ume] in Serum or Plasma 2.5-4.5 [facility] Phosphoruson 01-23-2025 Phosphate [Mass/Vol] 4.4 mg/dL Normal 2.5-4.5 [facility] Comment on above: Performed By: #### P HOS, MG, CMP, CBC ####[facility] [id number] [place] [id number] [facility] Platelet mean volume Auto (B ld) [Entitic vol]Ordered By: Ángel Minaya on 01-23-2025 Platelet mean volume (Bld) [Entitic vol] Platelet mean volume [Entitic volume] in Blood by Automated count 6.3-10.7 [facility] Platelets Auto (Bld) [#/Vol] Ordered By: Ángel Minaya on 01-23-2025 Platelets (Bld) [#/Vol] Platelets [#/volume] in Blood by Automated count 150-450 [facility] Potassium [Moles/volume] in Serum or PlasmaOrdered By: Ángel Minaya on 01-23-2025 Potassium [Moles/Vol] Potassium [Moles/v olume] in Serum or Plasma 3.5-5.1 [facility] Protein [Mass/volume] in Ser um or PlasmaOrdered By: Ángel Minaya on 01-23-2025 Protein [Mass/Vol] Protein [Mass/volume ] in Serum or Plasma Low 6.4-8.9 [facility] RBC Auto (Bld) [#/Vol]Ordere d By: Ángel Minaya on 01-23-2025 RBC (Bld) [#/Vol] Erythrocytes [#/volu me] in Blood by Automated count 3.60-5.00 [facility] Serum or plasma albumin/glob ulin mass ratioOrdered By: Ángel Minaya on 01-23-2025 Albumin/Globulin [Mass ratio] Serum or plasma albumin/globulin mass ratio [facility] Serum or plasma anion gap de terminationOrdered By: Ángel Minaya on 01-23-2025 Anion gap [Moles/Vol] Serum or plasma an ion gap determination 6.0-15.0 [facility] Sodium [Moles/volume] in Ser um or PlasmaOrdered By: Ángel Minaya on 01-23-2025 Sodium [Moles/Vol] Sodium [Moles/volume ] in Serum or Plasma 136-145 [facility] Urea nitrogen [Mass/volume] in Serum or PlasmaOrdered By: Ángel Minaya on 01-23-2025 Urea nitrogen [Mass/Vol] Urea nitrogen [Mass/volume] in Serum or Plasma 7 [facility] WBC Auto (Bld) [#/Vol]Ordere d By: Ángel Minaya on 01-23-2025 WBC (Bld) [#/Vol] Leukocytes [#/volume ] in Blood by Automated count 3.8-11.6 [facility] Alanine aminotransferase [En zymatic activity/volume] in Serum or PlasmaOrdered By: Maggie Rod on 01-22-2025 ALT [Catalytic activity/Vol] Alanine aminotransferase [Enzymatic activity/volume] in Serum or Plasma 7 [facility] Albumin [Mass/volume] in Ser um or Plasma by Bromocresol green (BCG) dye binding methoOrdered By: Maggie Rod on 01-22-2025 Albumin BCG dye [Mass/Vol] Albumin [Mass/volume] in Serum or Plasma by Bromocresol green (BCG) dye binding metho 3.5-5.7 [facility] Alkaline phosphatase [Enzyma tic activity/volume] in Serum or PlasmaOrdered By: Maggie Rod on 01-22-2025 ALP [Catalytic activity/Vol] Alkaline phosphatase [Enzymatic activity/volume] in Serum or Plasma 34-104 [facility] Aspartate aminotransferase [ Enzymatic activity/volume] in Serum or PlasmaOrdered By: Maggie Rod on 01-22-2025 AST [Catalytic activity/Vol] Aspartate aminotransferase [Enzymatic activity/volume] in Serum or Plasma 13-39 [facility] B-Type Natriuretic Peptideon 01-22-2025 Natriuretic peptide B (Bld) [Mass/Vol] 192.0 pg/mL High 5-100 [facility] Comment on above: Result Comment: PERF ORMED BY: [facility] [address] [place] [address] PATHOLOGIST COOKER SULFATE REENA JIN M.D. Performed By: #### P T, CK, HS TROP, PTT, CBC, BNP, CMP, MG ####[facility] [place] [address] [facility] Basophils Auto (Bld) [#/Vol] Ordered By: Maggie Rod on 01-22-2025 Basophils (Bld) [#/Vol] Automated basophil count 0.0-0.2 [facility] Basophils/100 WBC Auto (Bld) Ordered By: Maggie Rod on 01-22-2025 Basophils/100 WBC (Bld) Automated basophil % . [facility] Bilirubin.total [Mass/volume ] in Serum or PlasmaOrdered By: Maggie Rod on 01-22-2025 Bilirubin [Mass/Vol] Bilirubin.total [Mass/volume] in Serum or Plasma High 0.3-1.0 [facility] Calcium [Mass/volume] in Ser um or PlasmaOrdered By: Maggie Rod on 01-22-2025 Calcium [Mass/Vol] Calcium [Mass/volume ] in Serum or Plasma 8.6-10.3 [facility] Carbon dioxide, total [Moles /volume] in Serum or PlasmaOrdered By: Maggie Rod on 01-22-2025 CO2 [Moles/Vol] Carbon dioxide, tota l [Moles/volume] in Serum or Plasma 21.0-31.0 [facility] Chloride [Moles/volume] in S vaughn or PlasmaOrdered By: Maggie Rod on 01-22-2025 Chloride [Moles/Vol] Chloride [Moles/vol ume] in Serum or Plasma 98-107 [facility] Complete Blood Count Auto Di ffon 01-22-2025 Basophils (Bld) [#/Vol] 0.1 10*3/uL Normal 0.0-0.2 [facility] Comment on above: Result Comment: PERF ORMED BY: [facility] [address] [place] [address] PATHOLOGIST COOKER SULFATE REENA JIN M.D. Performed By: #### P T, CK, HS TROP, PTT, CBC, BNP, CMP, MG ####[facility] [id number] [place] [id number] [facility] Basophils/100 WBC (Bld) 1.2 % Normal . [facility] Comment on above: Performed By: #### P T, CK, HS TROP, PTT, CBC, BNP, CMP, MG ####[facility] [id number] [place] [id number] [facility] Eosinophils (Bld) [#/Vol] 0.2 10*3/uL Normal 0.0-0.45 [facility] Comment on above: Performed By: #### P T, CK, HS TROP, PTT, CBC, BNP, CMP, MG ####[address] Eosinophils/100 WBC (Bld) 2.5 % Normal . [facility] Comment on above: Performed By: #### P T, CK, HS TROP, PTT, CBC, BNP, CMP, MG ####[address] Erythrocyte distribution width (RBC) [Ratio] 14.4 % Normal 11.9-15.3 [facility] Comment on above: Performed By: #### P T, CK, HS TROP, PTT, CBC, BNP, CMP, MG ####[address] Hematocrit (Bld) [Volume fraction] 38.5 % Normal 34.0-46.4 [facility] Comment on above: Performed By: #### P T, CK, HS TROP, PTT, CBC, BNP, CMP, MG ####[address] Hemoglobin (Bld) [Mass/Vol] 13.3 g/dL Normal 11.8-15.4 [facility] Comment on above: Performed By: #### P T, CK, HS TROP, PTT, CBC, BNP, CMP, MG ####[address] Lymphocytes (Bld) [#/Vol] 1.4 10*3/uL Normal 1.00-4.8 [facility] Comment on above: Performed By: #### P T, CK, HS TROP, PTT, CBC, BNP, CMP, MG ####[address] Lymphocytes/100 WBC (Bld) 17.7 % Normal . [facility] Comment on above: Performed By: #### P T, CK, HS TROP, PTT, CBC, BNP, CMP, MG ####[address] MCH (RBC) [Entitic mass] 30.9 pg Normal 24.7-34.3 [facility] Comment on above: Performed By: #### P T, CK, HS TROP, PTT, CBC, BNP, CMP, MG ####[address] MCV (RBC) [Entitic vol] 89.4 fL Normal 80-100 [facility] Comment on above: Performed By: #### P T, CK, HS TROP, PTT, CBC, BNP, CMP, MG ####[address] Mean Corpuscular HGB Conc 34.6 g/dL Normal 32.0-35.0 [facility] Comment on above: Performed By: #### P T, CK, HS TROP, PTT, CBC, BNP, CMP, MG ####[address] Monocytes (Bld) [#/Vol] 0.6 10*3/uL Normal 0.0-0.8 [facility] Comment on above: Performed By: #### P T, CK, HS TROP, PTT, CBC, BNP, CMP, MG ####[address] Monocytes/100 WBC (Bld) 20.85 % High 0.00-20.00 [facility] Comment on above: Result Comment: For adults in ED, MDW > 20.0 may be associated with a higher risk of sepsis during the first 12 hrs of hospital admission Performed By: #### P T, CK, HS TROP, PTT, CBC, BNP, CMP, MG ####[address] Monocytes/100 WBC (Bld) 7.9 % Normal . [facility] Comment on above: Performed By: #### P T, CK, HS TROP, PTT, CBC, BNP, CMP, MG ####[address] Neutrophils (Bld) [#/Vol] 5.5 10*3/uL Normal 1.8-7.7 [facility] Comment on above: Performed By: #### P T, CK, HS TROP, PTT, CBC, BNP, CMP, MG ####[address] Neutrophils/100 WBC (Bld) 70.7 % Normal . [facility] Comment on above: Performed By: #### P T, CK, HS TROP, PTT, CBC, BNP, CMP, MG ####[address] NRBC% 0.2 /100{WBC} Normal 0-0.5 [facility] Comment on above: Performed By: #### P T, CK, HS TROP, PTT, CBC, BNP, CMP, MG ####[address] Platelet mean volume (Bld) [Entitic vol] 8.6 fL Normal 6.3-10.7 [facility] Comment on above: Performed By: #### P T, CK, HS TROP, PTT, CBC, BNP, CMP, MG ####[address] Platelets (Bld) [#/Vol] 240 10*3/uL Normal 150-450 [facility] Comment on above: Performed By: #### P T, CK, HS TROP, PTT, CBC, BNP, CMP, MG ####[address] RBC (Bld) [#/Vol] 4.31 10*6/uL Normal 3.60-5.00 [facility] Comment on above: Performed By: #### P T, CK, HS TROP, PTT, CBC, BNP, CMP, MG ####[address] WBC (Bld) [#/Vol] 7.8 10*3/uL Normal 3.8-11.6 [facility] Comment on above: Performed By: #### P T, CK, HS TROP, PTT, CBC, BNP, CMP, MG ####[address] Comprehensive Metabolic Pane violeta 01-22-2025 Albumin [Mass/Vol] 4.0 g/dL Normal 3.5-5.7 [facility] Comment on above: Performed By: #### P T, CK, HS TROP, PTT, CBC, BNP, CMP, MG ####[address] Albumin/Globulin [Mass ratio] 1.4 {ratio} Normal [facility] Comment on above: Performed By: #### P T, CK, HS TROP, PTT, CBC, BNP, CMP, MG ####[address] ALP [Catalytic activity/Vol] 87 U/L Normal 34-104 [facility] Comment on above: Performed By: #### P T, CK, HS TROP, PTT, CBC, BNP, CMP, MG ####[address] ALT [Catalytic activity/Vol] 19 U/L Normal 7-52 [facility] Comment on above: Performed By: #### P T, CK, HS TROP, PTT, CBC, BNP, CMP, MG ####[address] Anion gap [Moles/Vol] 12.2 mmol/L Normal 6.0-15.0 e [facility] Comment on above: Performed By: #### P T, CK, HS TROP, PTT, CBC, BNP, CMP, MG ####[address] AST [Catalytic activity/Vol] 23 U/L Normal 13-39 [facility] [facility] Comment on above: Performed By: #### P T, CK, HS TROP, PTT, CBC, BNP, CMP, MG ####[address] Bilirubin [Mass/Vol] 1.2 mg/dL High 0.3-1.0 [facility] Comment on above: Performed By: #### P T, CK, HS TROP, PTT, CBC, BNP, CMP, MG ####[address] Calcium [Mass/Vol] 9.2 mg/dL Normal 8.6-10.3 [facility] Comment on above: Performed By: #### P T, CK, HS TROP, PTT, CBC, BNP, CMP, MG ####[address] Chloride [Moles/Vol] 105 mmol/L Normal 98-107 [facility] Comment on above: Performed By: #### P T, CK, HS TROP, PTT, CBC, BNP, CMP, MG ####[address] CO2 [Moles/Vol] 25.7 mmol/L Normal 21.0-31.0 [facility] Comment on above: Performed By: #### P T, CK, HS TROP, PTT, CBC, BNP, CMP, MG ####[address] Creatinine [Mass/Vol] 1.13 mg/dL Normal 0.60-1.20 [facility] Comment on above: Performed By: #### P T, CK, HS TROP, PTT, CBC, BNP, CMP, MG ####[address] Creatinine Clr Calc Pharmacy 30.77 Normal [facility] Comment on above: Performed By: #### P T, CK, HS TROP, PTT, CBC, BNP, CMP, MG ####[address] Estimated GFR 48.575 mL/Min Normal [facility] Comment on above: Performed By: #### P T, CK, HS TROP, PTT, CBC, BNP, CMP, MG ####[address] Globulin (S) [Mass/Vol] 2.9 g/dL Normal [facility] Comment on above: Performed By: #### P T, CK, HS TROP, PTT, CBC, BNP, CMP, MG ####[place] [id number] [address] Glucose [Mass/Vol] 103 mg/dL High 70-100 [facility] Comment on above: Result Comment: [place] Glucose Reference Range is dependent on time and content of last meal. Glucose of more than 200 mg/dL in a nonstressed, ambulatory subject supports the diagnosis of Diabetes Mellitus. ADA recommended reference range Performed By: #### P T, CK, HS TROP, PTT, CBC, BNP, CMP, MG ####[address] Potassium [Moles/Vol] 3.9 mmol/L Normal 3.5-5.1 [facility] Comment on above: Performed By: #### P T, CK, HS TROP, PTT, CBC, BNP, CMP, MG ####[address] Protein [Mass/Vol] 6.9 g/dL Normal 6.4-8.9 [facility] Comment on above: Performed By: #### P T, CK, HS TROP, PTT, CBC, BNP, CMP, MG ####[address] Sodium [Moles/Vol] 139 mmol/L Normal 136-145 [facility] Comment on above: Performed By: #### P T, CK, HS TROP, PTT, CBC, BNP, CMP, MG ####[address] Urea nitrogen [Mass/Vol] 27 mg/dL High 7-25 [facility] Comment on above: Performed By: #### P T, CK, HS TROP, PTT, CBC, BNP, CMP, MG ####[address] Creatine Kinaseon 01-22-2025 CK [Catalytic activity/Vol] 41 U/L Normal 30-223 [facility] Comment on above: Performed By: #### P T, CK, HS TROP, PTT, CBC, BNP, CMP, MG ####[facility] [place] [address] [facility] Creatine kinase [Enzymatic a ctivity/volume] in Serum or PlasmaOrdered By: Maggie Rod on 01-22-2025 CK [Catalytic activity/Vol] Creatine kinase [Enzymatic activity/volume] in Serum or Plasma 30-223 [facility] Creatinine [Mass/volume] in Serum or PlasmaOrdered By: Maggie Rod on 01-22-2025 Creatinine [Mass/Vol] Creatinine [Mass/v olume] in Serum or Plasma 0.60-1.20 [facility] ECG 12 lead ECGon 01-22-2025 ECG 12 [place] [address] Electrocardiograph Report Signed Patient: Austin Golden MR#: [id number] 8 : 1940 Acct:[id number] Age/Sex: 84 / F ADM Date: 01/22/25 Loc: Room: [address] [place] [address] Type: ADM IN Attending Dr: Ángel Minaya [...] Atrial fibrillation Confirmed by MAGGIE ROD MD ([id number]) on 01/23/2025 5:45:25 AM Referred By: Electronically Signed By: MAGGIE ROD MD Transcribed By: MUS Signed By Maggie Rod Jr, MD 0545 Normal [facility] ECG 12 lead ECG [place] [id number] Electrocardiograph Report Signed Patient: Austin Golden MR#: [id number] 8 : 1940 Acct:[id number] Age/Sex: 84 / F ADM Date: 01/22/25 Loc: 3T Room: [address] [place] [address] Type: ADM IN Attending Dr: Ángel Minaya [...] Anterolateral leads Confirmed by MAGGIE ROD MD ([id number]) on 01/23/2025 5:42:20 AM Referred By: Electronically Signed By: MAGGIE ROD MD Transcribed By: MUS Signed By Maggie Rod Jr, MD 0542 Normal [facility] Eosinophils Auto (Bld) [#/Vo l]Ordered By: Maggie Rod on 01-22-2025 Eosinophils (Bld) [#/Vol] Automated eosinophil count 0.0-0.45 [facility] Eosinophils/100 WBC Auto (Bl d)Ordered By: Maggie Rod on 01-22-2025 Eosinophils/100 WBC (Bld) Automated eosinophil % . [facility] Erythrocyte distribution wid th Auto (RBC) [Ratio]Ordered By: Maggie Rod on 01-22-2025 Erythrocyte distribution width (RBC) [Ratio] Erythrocyte distribution width [Ratio] by Automated count 11.9-15.3 [facility] Globulin Calc (S) [Mass/Vol] Ordered By: Maggie Rod on 01-22-2025 Globulin (S) [Mass/Vol] Serum globulin measurement by calculation (mass/volume) [facility] Glucose [Mass/volume] in Ser um or PlasmaOrdered By: Maggie Rod on 01-22-2025 Glucose [Mass/Vol] Glucose [Mass/volume ] in Serum or Plasma High 70-100 [facility] Comment on above: ADA recommended refe rence rangeRandom Glucose Reference Range is dependent on time and content of last meal. Glucose of more than 200 mg/dL in a nonstressed, ambulatory subject supports the diagnosis of Diabetes Mellitus. Hematocrit Auto (Bld) [Volum e fraction]Ordered By: Maggie Rod on 01-22-2025 Hematocrit (Bld) [Volume fraction] Hematocrit [Volume Fraction] of Blood by Automated count 34.0-46.4 [facility] Hemoglobin [Mass/volume] in BloodOrdered By: Maggie Rod on 01-22-2025 Hemoglobin (Bld) [Mass/Vol] Hemoglobin [Mass/volume] in Blood 11.8-15.4 [facility] INR in Platelet poor plasma by Coagulation assayOrdered By: Maggie Rod on 01-22-2025 INR Coag (PPP) [Relative time] INR in Platelet poor plasma by Coagulation assay [facility] Comment on above: INR Therapeutic Rang e [...] erythrocytes in Blood by Automated coun 3.8-11.6 [facility] Lymphocytes Auto (Bld) [#/Vo l]Ordered By: Maggie Rod on 01-22-2025 Lymphocytes (Bld) [#/Vol] Lymphocytes [#/volume] in Blood by Automated count 1.00-4.8 [facility] Lymphocytes/100 WBC Auto (Bl d)Ordered By: Maggie Rod on 01-22-2025 Lymphocytes/100 WBC (Bld) Lymphocytes/100 leukocytes in Blood by Automated count . [facility] MCH Auto (RBC) [Entitic mass ]Ordered By: Maggie Rod on 01-22-2025 MCH (RBC) [Entitic mass] MCH [Entitic mass] by Automated count 24.7-34.3 [facility] MCHC Auto (RBC) [Mass/Vol]Or dered By: Maggie Rod on 01-22-2025 MCHC (RBC) [Mass/Vol] MCHC [Mass/volume] by Automated count 32.0-35.0 [facility] MCV Auto (RBC) [Entitic vol] Ordered By: Maggie Rod on 01-22-2025 MCV (RBC) [Entitic vol] MCV [Entitic volume] by Automated count 80-100 [facility] Magnesiumon 01-22-2025 Magnesium [Mass/Vol] 2.1 mg/dL Normal 1.9-2.7 [facility] Comment on above: Result Comment: PERF ORMED BY: [facility] [address] [place] [id number] PATHOLOGIST COOKER SULFATE REENA JIN M.D. Performed By: #### P T, CK, HS TROP, PTT, CBC, BNP, CMP, MG ####[facility] [place] [id number] [facility] Magnesium [Mass/volume] in S vaughn or PlasmaOrdered By: Maggie Rod on 01-22-2025 Magnesium [Mass/Vol] Magnesium [Mass/vol ume] in Serum or Plasma 1.9-2.7 [facility] Monocyte distribution width [Entitic volume] in Blood by AutomatedOrdered By: Maggie Rod on 01-22-2025 Monocyte distribution width Auto (Bld) [Entitic vol] Monocyte distribution width [Entitic volume] in Blood by Automated High 0.00-20.00 [facility] Comment on above: For adults in ED, MD W > 20.0 may be associated with a higher risk of sepsis during the first 12 hrs of hospital admission Monocytes Auto (Bld) [#/Vol] Ordered By: Maggie Rod on 01-22-2025 Monocytes (Bld) [#/Vol] Automated blood monocyte count 0.0-0.8 [facility] Monocytes/100 WBC Auto (Bld) Ordered By: Maggie Rod on 01-22-2025 Monocytes/100 WBC (Bld) Automated monocyte % . [facility] Natriuretic peptide B [Mass/ Vol]Ordered By: Maggie Rod on 01-22-2025 Natriuretic peptide B (Bld) [Mass/Vol] BNP ser/plas High 5-100 [facility] Neutrophils Auto (Bld) [#/Vo l]Ordered By: Maggie Rod on 01-22-2025 Neutrophils (Bld) [#/Vol] Neutrophils [#/volume] in Blood by Automated count 1.8-7.7 [facility] Neutrophils/100 WBC Auto (Bl d)Ordered By: Maggie Rod on 01-22-2025 Neutrophils/100 WBC (Bld) Automated neutrophil % . [facility] No Panel InformationOrdered By: Maggie Rod on 01-22-2025 Estimated GFR (CKD-EPI) 48.575 mL/Min [facility] Pharmacy Creatinine Clearance (Chem 30.77 [facility] Nucleated erythrocytes [Pres ence] in Blood by Automated countOrdered By: Maggie Rod on 01-22-2025 Nucleated RBC Auto Ql (Bld) Nucleated erythrocytes [Presence] in Blood by Automated count 0-0.5 [facility] Partial Thromboplastin Timeo n 01-22-2025 aPTT Coag (Bld) [Time] 32.2 s Normal 25.1-36.5 [facility] Comment on above: Result Comment: A he matocrit value greater than 55% may lead to inaccurate results in coagulation testing. Patients having hematocrit values >55% require a special collection tube for coagulation studies. Please contact the laboratory at [phone] for redraw instructions. PERFORMED BY: [facility] [address] [place] [address] PATHOLOGIST COOKER SULFATE REENA JIN M.D. Performed By: #### P T, CK, HS TROP, PTT, CBC, BNP, CMP, MG ####[facility] [address] [place] [address] [facility] Platelet mean volume Auto (B ld) [Entitic vol]Ordered By: Maggie Rod on 01-22-2025 Platelet mean volume (Bld) [Entitic vol] Platelet mean volume [Entitic volume] in Blood by Automated count 6.3-10.7 [facility] Platelets Auto (Bld) [#/Vol] Ordered By: Maggie Rod on 01-22-2025 Platelets (Bld) [#/Vol] Platelets [#/volume] in Blood by Automated count 150-450 [facility] Potassium [Moles/volume] in Serum or PlasmaOrdered By: Maggie Rod on 01-22-2025 Potassium [Moles/Vol] Potassium [Moles/v olume] in Serum or Plasma 3.5-5.1 [facility] Protein [Mass/volume] in Ser um or PlasmaOrdered By: Maggie Rod on 01-22-2025 Protein [Mass/Vol] Protein [Mass/volume ] in Serum or Plasma 6.4-8.9 [facility] Prothrombin Time INRon 01-22 INR Coag (PPP) [Relative time] 1.2 {INR} Normal [facility] Comment on above: Result Comment: [...] HS TROP, PTT, CBC, BNP, CMP, MG ####[facility] [id number] [place] [id number] [facility] PT Coag (PPP) [Time] 13.9 s High 9.0-12.9 [facility] Comment on above: Result Comment: A he matocrit value greater than 55% may lead to inaccurate results in coagulation testing. Patients having hematocrit values >55% require a special collection tube for coagulation studies. Please contact the laboratory at [phone] for redraw instructions. Performed By: #### P T, CK, HS TROP, PTT, CBC, BNP, CMP, MG ####[facility] [address] [place] [address] [facility] Prothrombin time (PT)Ordered By: Maggie Rod on 01-22-2025 PT Coag (PPP) [Time] Prothrombin time (PT) High 9.0- 12.9 [facility] Comment on above: A hematocrit value g reater than 55% may lead to inaccurate results in coagulation testing. Patients having hematocrit values >55% require a special collection tube for coagulation studies. Please contact the laboratory at [phone] for redraw instructions. RBC Auto (Bld) [#/Vol]Ordere d By: Maggie Rod on 01-22-2025 RBC (Bld) [#/Vol] Erythrocytes [#/volu me] in Blood by Automated count 3.60-5.00 [facility] Serum or plasma albumin/glob ulin mass ratioOrdered By: Maggie Rod on 01-22-2025 Albumin/Globulin [Mass ratio] Serum or plasma albumin/globulin mass ratio [facility] Serum or plasma anion gap de terminationOrdered By: Maggie Rod on 01-22-2025 Anion gap [Moles/Vol] Serum or plasma an ion gap determination 6.0-15.0 [facility] Sodium [Moles/volume] in Ser um or PlasmaOrdered By: Maggie Rod on 01-22-2025 Sodium [Moles/Vol] Sodium [Moles/volume ] in Serum or Plasma 136-145 [facility] Troponin I High Sensitivityo n 01-22-2025 Troponin I High Sensitivity 15 Normal 0-15 [facility] Comment on above: Result Comment: The Troponin units of report have been changed to meet the Chest Pain Accreditation requirement, element EC5.M1l2. Troponin units are changed from pg/ml to ng/L. Also, the decimal is removed and results are in whole numbers. PERFORMED BY: [facility] [address] [place] [id number] PATHOLOGIST COOKER SULFATE REENA JIN M.D. Performed By: #### P T, CK, HS TROP, PTT, CBC, BNP, CMP, MG ####[facility] [place] [id number] [facility] Troponin I.cardiac [Mass/vol ume] in Serum or Plasma by Detection limit <= 0.01 ng/Ordered By: Maggie Rod on 01-22-2025 Troponin I.cardiac DL <= 0.01 ng/mL [Mass/Vol] Troponin I.cardiac [Mass/volume] in Serum or Plasma by Detection limit <= 0.01 ng/ 0-15 [facility] Comment on above: The Troponin units o [...] [Mass/volume] in Serum or Plasma High 7-25 [facility] WBC Auto (Bld) [#/Vol]Ordere d By: Maggie Rod on 01-22-2025 WBC (Bld) [#/Vol] Leukocytes [#/volume ] in Blood by Automated count 3.8-11.6 [facility] X-ray reportOrdered By: Jadiel Borja on 01-22-2025 Study report [place] [id number] XRay Report Signed Patient: Austin Golden MR#: [id number] : 1940 Acct:[id number] Age/Sex: 84 / F ADM Date: 5 Loc: ER Room: Type: [facility] ER Attending Dr: Copies to: Maggie Rod [...] Borja M.D. 01/22/2025 9:22 PM Dictation Location: [place] [address] Transcribed By: [facility] 01/22/252121 Dictated By: Juanito Borja DO 01/22/252120 Signed By: 01/22/252121 [facility] XR chest 1V portableon 01-22 XR chest 1V portable [address] [address] XRay Report Signed Patient: Austin Golden MR#: [id number] 8 : 1940 Acct:[id number] Age/Sex: 84 / F ADM Date: 01/22/25 Loc: Room: [address] [place] [address] Type: DIS INOo Attending Dr: Fahad Kim [...] Borja M.D. 01/22/2025 9:22 PM Dictation Location: [place] [address] Transcribed By: [facility] 01/22/252121 Dictated By: Juanito Borja DO 01/22/252120 Signed By: 01/22/252121 Normal [facility] aPTT in Platelet poor plasma by Coagulation assayOrdered By: Maggie Rod on 01-22-2025 aPTT Coag (PPP) [Time] Activated partial thromboplastin time (aPTT) in platelet poor plasma by coagulation a 25.1-36.5 [facility] Comment on above: A hematocrit value g reater than 55% may lead to inaccurate results in coagulation testing. Patients having hematocrit values >55% require a special collection tube for coagulation studies. Please contact the laboratory at [phone] for redraw instructions. Basophils Auto (Bld) [#/Vol] on 01-21-2025 Basophils (Bld) [#/Vol] Automated basophil count 0.0-0.1 [facility] Basophils/100 WBC Auto (Bld) on 01-21-2025 Basophils/100 WBC (Bld) Automated basophil % 0.2-2.0 [facility] Eosinophils/100 WBC Auto (Bl d)on 01-21-2025 Eosinophils/100 WBC (Bld) Automated eosinophil % 0.9-7.0 [facility] Erythrocyte distribution wid th Auto (RBC) [Ratio]on 01-21-2025 Erythrocyte distribution width (RBC) [Ratio] Erythrocyte distribution width [Ratio] by Automated count 11.0-15.0 [facility] Estimated glomerular filtrat ion rate (GFR) non- Americanon 01-21-2025 GFR/1.73 sq M.predicted among non-blacks MDRD (S/P/Bld) [Vol rate/Area] Estimated glomerular filtration rate (GFR) non- Low >=60 mL/min/1.7 3m 2 [facility] Globulin Calc (S) [Mass/Vol] on 01-21-2025 Globulin (S) [Mass/Vol] Serum globulin measurement by calculation (mass/volume) [facility] Hematocrit Auto (Bld) [Volum e fraction]on 01-21-2025 Hematocrit (Bld) [Volume fraction] Hematocrit [Volume Fraction] of Blood by Automated count 36.0-48.0 [facility] Hemoglobin [Mass/volume] in Bloodon 01-21-2025 Hemoglobin (Bld) [Mass/Vol] Hemoglobin [Mass/volume] in Blood 12.0-16.0 [facility] Laboratory - Chemistry and C hemistry - challengeon 01-21-2025 Albumin [Mass/Vol] 3.3 g/dL Low 3.4-5.0 [facility] ALP [Catalytic activity/Vol] 105 U/L 46-116 [facility] ALT [Catalytic activity/Vol] 33 U/L 14-59 [facility] AST [Catalytic activity/Vol] 30 U/L 15-37 [facility] Bilirubin [Mass/Vol] 1.1 mg/dL High 0.2-1.0 [facility] Calcium [Mass/Vol] 9.0 mg/dL 8.5-10.1 [facility] Chloride [Moles/Vol] 105 mmol/L 98-107 [facility] CO2 [Moles/Vol] 27.9 mmol/L 21.0-32.0 [facility] Creatinine [Mass/Vol] 1.20 mg/dL High 0.55-1.02 [facility] GFR/1.73 sq M.predicted MDRD (S/P/Bld) [Vol rate/Area] 52 mL/min/{1.73_m2} Low >=60 mL/min/1.7 3m 2 [facility] Glucose [Mass/Vol] 98 mg/dL 74-106 [facility] Potassium [Moles/Vol] 4.2 mmol/L 3.5-5.1 [facility] Protein [Mass/Vol] 7.0 g/dL 6.4-8.2 [facility] Sodium [Moles/Vol] 143 mmol/L 136-145 [facility] TSH Qn 5.492 m[IU]/L High 0.358-3.74 0 [facility] Urea nitrogen [Mass/Vol] 23.0 mg/dL High 7.0-18.0 [facility] Urea nitrogen/Creatinine [Mass ratio] 19.2 mg/mg [facility] Laboratory - Hematology and Cell countson 01-21-2025 Immature granulocytes/100 WBC (Bld) 0.3 % 0.0-0.5 [facility] Leukocytes [#/volume] correc anne marie for nucleated erythrocytes in Blood by Automated counon 01-21-2025 WBC corrected for nucl RBC Auto (Bld) [#/Vol] Leukocytes [#/volume] corrected for nucleated erythrocytes in Blood by Automated coun 4.0-11.0 [facility] Lymphocytes Auto (Bld) [#/Vo l]on 01-21-2025 Lymphocytes (Bld) [#/Vol] Lymphocytes [#/volume] in Blood by Automated count 1.2-3.8 [facility] Lymphocytes/100 WBC Auto (Bl d)on 01-21-2025 Lymphocytes/100 WBC (Bld) Lymphocytes/100 leukocytes in Blood by Automated count Low 20.5-60.0 [facility] MCH Auto (RBC) [Entitic mass ]on 01-21-2025 MCH (RBC) [Entitic mass] MCH [Entitic mass] by Automated count 26.7-34.0 [facility] MCHC Auto (RBC) [Mass/Vol]on 01-21-2025 MCHC (RBC) [Mass/Vol] MCHC [Mass/volume] by Automated count 29.9-35.2 [facility] MCV Auto (RBC) [Entitic vol] on 01-21-2025 MCV (RBC) [Entitic vol] MCV [Entitic volume] by Automated count 81.0-99.0 [facility] Monocytes Auto (Bld) [#/Vol] on 01-21-2025 Monocytes (Bld) [#/Vol] Automated blood monocyte count 0.3-0.8 [facility] Monocytes/100 WBC Auto (Bld) on 01-21-2025 Monocytes/100 WBC (Bld) Automated monocyte % 1.7-12.0 [facility] Neutrophils Auto (Bld) [#/Vo l]on 01-21-2025 Neutrophils (Bld) [#/Vol] Neutrophils [#/volume] in Blood by Automated count 1.4-6.5 [facility] Neutrophils/100 WBC Auto (Bl d)on 01-21-2025 Neutrophils/100 WBC (Bld) Automated neutrophil % 43.0-75.0 [facility] No Panel Informationon 01-21 Eosinophils # (Auto) 0.3 10 3/uL 0.0-0.7 [facility] Immature Granulocyte # (Auto) 0.02 10 3/uL 0.00-0.03 [facility] Platelet mean volume Auto (B ld) [Entitic vol]on 01-21-2025 Platelet mean volume (Bld) [Entitic vol] Platelet mean volume [Entitic volume] in Blood by Automated count 9.5-13.5 [facility] Platelets Auto (Bld) [#/Vol] on 01-21-2025 Platelets (Bld) [#/Vol] Platelets [#/volume] in Blood by Automated count 150-450 [facility] RBC Auto (Bld) [#/Vol]on RBC (Bld) [#/Vol] Erythrocytes [#/volu me] in Blood by Automated count 4.20-5.40 [facility] Serum or plasma albumin/glob ulin mass ratioon 01-21-2025 Albumin/Globulin [Mass ratio] Serum or plasma albumin/globulin mass ratio [facility] Serum or plasma anion gap de terminationon 01-21-2025 Anion gap [Moles/Vol] Serum or plasma an ion gap determination [facility] Assessment AND Plan Noteon 0 01-06-2025 Vp [employer] Authentication Interface Message Text -discussed risks/benefits of surgery--it is high risk due to her age and revisional nature of it -she will talk to her family and let me know if she'd like to proceed with surgery or just live with it Normal [facility] Progress Noteson 01-06-2025 Vp Director Of [employer] Authentication Interface Message Text Phone numbers Preferred Documentation: Mode: Telephone Patient Patient Work Phone: Patient Cell Preferred phone: [phone] Consent: I confirmed patient understanding of the [...] OralBarium Sulfate 1 Tab Route: Oral FINDINGS: Partition Setter fluoroscopic spot images of the abdomen: Non-obstructive [...] it Nigel El MD, FACS Normal [facility] Progress Noteson 12-31-2024 Vp Director Of [employer] Authentication Interface Message Text This encounter was opened in error. Patient was a No-Show. Please disregard. Called twice, left message to reschedule. Nigel El MD Normal [facility] Assessment AND Plan Noteon 0 12-30-2024 Vp Director Of [employer] Authentication Interface Message Text -Evidence of recurrence on imaging/EGD -discussed non-operative vs operative management, patient elects to Normal [facility] Progress Noteson 12-30-2024 Vp Director Of [employer] Authentication Interface Message Text This encounter was opened in error. Patient was a No-Show. Please disregard. Called many times, left message to reschedule. Nigel El MD Normal [facility] Telephone Encounteron 2024 Vp Director Of Creative Strategy Authentication Interface Message Text [facility] 12/11 @ 9:30 cancelling appt. Left my number for r/s- SO Normal [facility] Anesthesia Postprocedure Taylor luationon 12-08-2024 Vp Director Of Creative Strategy Authentication Interface Message Text Anesthesia Postoperative Assessment: [...] [facility] Anesthesia Preprocedure Eval uationon 12-08-2024 Vp Director Of Creative Strategy Authentication Interface Message Text ASA: 3 No history of anesthetic complications NPO status: Greater than 8 hours Past Medical History and Review of Systems Pulmonary (-) sleep apnea, non-smoker Dental Endo (-) diabetes mellitus dental intern (+) post-menopausal Neuro/Psych (-) CVA, seizures Cardiovascular [...] fibrillation for which she started seeing [facility] since 2020 after she was hospitalized in [facility] for bradycardia. Adjustment of her medical therapy [...] were discussed with the patient and/or legal packaging sales representative. The risks, benefits and alternatives were reviewed. Questions regarding anesthesia were answered. Patient and/or legal packaging sales representative knows such anesthetics and procedures may be performed by Resident physicians, Certified Anesthesiologist Assistants, or Certified Nurse Anesthetists under the supervision of a physician. The patient /or the patient's legal packaging sales representative agree with the plan for anesthesia. [employer] Normal [facility] Anesthesia Transfer Of Careo n 12-08-2024 Vp Director Of Creative Strategy Authentication Interface Message Text Patient taken to [...] report was received. KOMAL Richardson Normal [facility] Blood Attestationon 12-09-19 Vp Director Of Creative Strategy Authentication Interface Message Text Blood Attestation: ATTESTATION OF INFORMED CONSENT FOR BLOOD: The transfusion of blood and/or blood components were discussed with the patient and/or legal packaging sales representative. The risks, benefits and alternatives were reviewed. Questions regarding blood transfusions were answered. The patient /or the patient's legal packaging sales representative agree with the plan for transfusion of blood and/or blood components. Normal [facility] H AND Rudolph 12-08-2024 Vp Director Of Creative Strategy Authentication Interface Message Text [facility] GENERAL SURGERY H AND P Austin Golden [phone] History (HPI) Austin Golden is a 84 [...] Garima Sotomayor MD General Surgery Normal [facility] OP Noteon 12-08-2024 Vp Director Of Creative Strategy Authentication Interface Message Text Austin Golden 84 year old Surgical Contact Serial Number: [id number] Location: [id number] [id number] Date: 12/08/2024 [employer]: Nigel El MD ATTENDING:Nigel El MD Procedure(s): ESOPHAGOGASTRODUODENOSCOPY WITH ENDOFLIP INSTRUMENT: Scope #[id number] SEDATION: Anesthesia Assisted Pre-Op Diagnosis Codes: * [...] hernia without obstruction or gangrene (Primary Diagnosis) [657381] Hiatal hernia [396796] Gastroesophageal reflux disease without esophagitis [735408] TEE PATH SPECIMEN SENT: no SPECIMEN: None [...] please contact the endoscopy center Mon-Fri 7:30am-4pm [phone] or after hours [facility] [phone] Severe abdominal pain that keeps getting worse Fever or any other signs of infection Nausea or vomiting blood Seeing persistent blood coming out of your rectum, with or without stool (some streaks or drops of blood may be expected) For any additional questions, please call the endoscopy center at [phone] Follow-up with your Primary Care Provider CC: Primary Care Provider: No primary care provider on file. PERSON COMPLETING NOTE: Nigel El MD 12/08/2024 at 10:41 AM Patient meets criteria for discharge/transfer: Nigel El MD Normal [facility] Telephone Encounteron 2024 Vp Director Of Creative Strategy Authentication Interface Message Text What is the [...] your last menstrual period? N/a Protocols used: Qjiisgor-F-LS Normal [facility] [employer] Interface Message Text What is the need: Situation: returning patients call Background: n/a Assessment: pt unable to provide three identifiers, states she is sick and to call back later. Recommendation: no advise given, RN offered to call 911 for patient, pt declined. Bonnie Clarke RN Normal [facility] Interface Message Text Caller: The Pt Symptoms: Pt states that she is not able to keep food down. Patient is requesting a call back from the Triage Nurse. Thank you! Normal [facility] Interface Message Text Pt calling to check the status of her previous message requesting a sooner GI appointment with Dr. Charles Yung. Pt states that she is not able to keep boost or food down, (it keeps coming up). Please return call to Pt at: . Thank you Normal [facility] Telephone Encounteron 2024 boo-box Authentication Interface Message Text Situation: pt is [...] if needed Recommendation: see above Normal [facility] Progress Noteson 11-14-2024 Vp Director Of Creative Strategy Authentication Interface Message Text Documentation: Mode: Telephone Patient Patient Work Phone: Patient Cell Preferred phone: [phone] Consent: I confirmed patient understanding of the [...] Yung MD Division of Gastroenterology AND Hepatology [facility] 11/14/24, 11:49 AM Normal [facility] Tele[facility] Encounteron 2024 Vp Director Of Creative Strategy Authentication Interface Message Text Situation: swallowing difficulties [...] last menstrual period? N/a Protocols used: Swallowing Thcdkplvyk-B-UC Normal [facility] Vp Director Of Creative Strategy Authentication Interface Message Text Caller warm-transferred to [facility] Nurse for Sx/Buzzword situation of: [...] Caller's Telephone Number: Telephone Information: Normal [facility] Telephone Encounteron 2024 Vp Director Of Creative Strategy Authentication Interface Message Text Phoned patient to [...] resort is to loosen raul. Normal [facility] Vp Director Of Creative Strategy Authentication Interface Message Text Situation: Vomiting. Having worsening sx r/t EGJOO and was told to contact Dr Yung. Background: See nurse triage Assessment: See nurse triage Recommendation: Patient advised to call back with worsening sx. Dispo was ED now vs PCP Triage Page to GI @ [address] Gee who advised [...] your last menstrual period? N/A Protocols used: Owqqnjyb-H-RH Normal [facility] Vp Director Of Creative Strategy Authentication Interface Message Text Symptoms - frequent vomiting Per decision tree transfer to nurse Normal [facility] Hemoglobin [Mass/volume] in Bloodon 10-01-2024 Hemoglobin (Bld) [Mass/Vol] Hemoglobin [Mass/volume] in Blood 12.0-16.0 [facility] Alanine aminotransferase [En zymatic activity/volume] in Serum or PlasmaOrdered By: Gracia Craig on 09-12-2024 ALT [Catalytic activity/Vol] Alanine aminotransferase [Enzymatic activity/volume] in Serum or Plasma [facility] Albumin [Mass/volume] in Ser um or Plasma by Bromocresol green (BCG) dye binding methoOrdered By: Gracia Craig on 09-12-2024 Albumin BCG dye [Mass/Vol] Albumin [Mass/volume] in Serum or Plasma by Bromocresol green (BCG) dye binding metho 3.5-5.7 [facility] Alkaline phosphatase [Enzyma tic activity/volume] in Serum or PlasmaOrdered By: Graciacatrina Craig on 09-12-2024 ALP [Catalytic activity/Vol] Alkaline phosphatase [Enzymatic activity/volume] in Serum or Plasma 34-104 [facility] Aspartate aminotransferase [ Enzymatic activity/volume] in Serum or PlasmaOrdered By: Graciacatrina Craig on 09-12-2024 AST [Catalytic activity/Vol] Aspartate aminotransferase [Enzymatic activity/volume] in Serum or Plasma 13-39 [facility] B-Type Natriuretic Peptideon 09-12-2024 Natriuretic peptide B (Bld) [Mass/Vol] 170.0 pg/mL High 5-100 [facility] Comment on above: Result Comment: PERF ORMED BY: [facility] [address] [place] [address] PATHOLOGIST COOKER SULFATE AKILAH LOMBARDO M.D. Performed By: #### P T, CMP, BNP, HS TROP, CK, CBC ####[facility] Basophils Auto (Bld) [#/Vol] Ordered By: Gracia Craig on 09-12-2024 Basophils (Bld) [#/Vol] Automated basophil count 0.0-0.2 [facility] Basophils/100 WBC Auto (Bld) Ordered By: Gracia Craig on 09-12-2024 Basophils/100 WBC (Bld) Automated basophil % . [facility] Bilirubin.total [Mass/volume ] in Serum or PlasmaOrdered By: Gracia Craig on 09-12-2024 Bilirubin [Mass/Vol] Bilirubin.total [Mass/volume] in Serum or Plasma 0.3-1.0 [facility] COVID Cepheid NegativeOrdere d By: Gracia Craig on 09-12-2024 SARS-CoV-2 (COVID-19) Ab IA Ql COVID Cepheid Negative [facility] Comment on above: This is a duplicate [...] or Cepheid Disclaimer revoked sooner. PERFORMED BY: [place] [address] PATHOLOGIST COOKER SULFATE AKILAH LOMBARDO M.D. Normal [facility] Comment on above: Performed By: #### C OVID19 FLU RSV, CEPHEID NEG ####[facility] [id number] [place] [id number] [facility] CT chest wo conon 09-12-2024 CT chest wo con [facility] [place] [address] [place] [address] CT Scan Report Signed Patient: Austin Golden MR#: [id number] 8 : 1940 Acct:[id number] Age/Sex: 83 / F ADM Date: 09/12/24 Loc: ER Room: Type: [facility] ER Attending Dr: Copies to: Gracia Craig [...] Thomas Haskins M.D.09/12/2024 12:37 PM Dictation Location: [place] [address] Transcribed By: [facility] 09/12/24 1237 Dictated By: Thomas Haskins II, MD 09/12/24 1233 Signed By: 09/12/24 1237 Normal [facility] Calcium [Mass/volume] in Ser um or PlasmaOrdered By: Gracia Craig on 09-12-2024 Calcium [Mass/Vol] Calcium [Mass/volume ] in Serum or Plasma 8.6-10.3 [facility] Carbon dioxide, total [Moles /volume] in Serum or PlasmaOrdered By: Gracia Craig on 09-12-2024 CO2 [Moles/Vol] Carbon dioxide, tota l [Moles/volume] in Serum or Plasma 21.0-31.0 [facility] Cepheid COVID PCR Negativeon 09-12-2024 SARS-CoV-2 (COVID-19) RNA GUILLERMO+probe Ql (Unsp spec) Negative Normal Negative [facility] Comment on above: Result Comment: This is a duplicate Cepheid Xpert Xpress CoV-2/Flu/RSV Plus RNA by RT-PCR result to be used for statistical tracking purpose only. PERFORMED BY: [facility] [address] [place] [address] PATHOLOGIST COOKER SULFATE AKILAH LOMBARDO M.D. Performed By: #### C OVID19 FLU RSV, CEPHEID NEG ####[facility] [id number] [place] [address] [facility] Chloride [Moles/volume] in S vaughn or PlasmaOrdered By: Gracia Craig on 09-12-2024 Chloride [Moles/Vol] Chloride [Moles/vol ume] in Serum or Plasma 98-107 [facility] Complete Blood Count Auto Di ffon 09-12-2024 Basophils (Bld) [#/Vol] 0.0 10*3/uL Normal 0.0-0.2 [facility] Comment on above: Result Comment: PERF ORMED BY: [address] [place] [address] PATHOLOGIST COOKER SULFATE AKILAH LOMBARDO M.D. Performed By: #### P T, CMP, BNP, HS TROP, CK, CBC ####[address] Basophils/100 WBC (Bld) 0.2 % Normal . [facility] Comment on above: Performed By: #### P T, CMP, BNP, HS TROP, CK, CBC ####[address] Eosinophils (Bld) [#/Vol] 0.2 10*3/uL Normal 0.0-0.45 [facility] Comment on above: Performed By: #### P T, CMP, BNP, HS TROP, CK, CBC ####[address] Eosinophils/100 WBC (Bld) 2.0 % Normal . [facility] Comment on above: Performed By: #### P T, CMP, BNP, HS TROP, CK, CBC ####[address] Erythrocyte distribution width (RBC) [Ratio] 15.1 % Normal 11.9-15.3 [facility] Comment on above: Performed By: #### P T, CMP, BNP, HS TROP, CK, CBC ####[address] Hematocrit (Bld) [Volume fraction] 49.4 % Significant change up 34.0-46.4 [facility] Comment on above: Performed By: #### P T, CMP, BNP, HS TROP, CK, CBC ####[address] Hemoglobin (Bld) [Mass/Vol] 16.2 g/dL High 11.8-15.4 [facility] Comment on above: Performed By: #### P T, CMP, BNP, HS TROP, CK, CBC ####[address] Lymphocytes (Bld) [#/Vol] 0.9 10*3/uL Low 1.00-4.8 [facility] Comment on above: Performed By: #### P T, CMP, BNP, HS TROP, CK, CBC ####[address] Lymphocytes/100 WBC (Bld) 11.4 % Normal . [facility] Comment on above: Performed By: #### P T, CMP, BNP, HS TROP, CK, CBC ####[address] MCH (RBC) [Entitic mass] 30.6 pg Normal 24.7-34.3 [facility] Comment on above: Performed By: #### P T, CMP, BNP, HS TROP, CK, CBC ####[address] MCV (RBC) [Entitic vol] 93.2 fL Normal 80-100 [facility] Comment on above: Performed By: #### P T, CMP, BNP, HS TROP, CK, CBC ####[address] Mean Corpuscular HGB Conc 32.9 g/dL Normal 32.0-35.0 [facility] Comment on above: Performed By: #### P T, CMP, BNP, HS TROP, CK, CBC ####[address] Monocytes (Bld) [#/Vol] 0.5 10*3/uL Normal 0.0-0.8 [facility] Comment on above: Performed By: #### P T, CMP, BNP, HS TROP, CK, CBC ####[address] Monocytes/100 WBC (Bld) 16.23 % Normal 0.00-20.00 [facility] Comment on above: Performed By: #### P T, CMP, BNP, HS TROP, CK, CBC ####[address] Monocytes/100 WBC (Bld) 5.7 % Normal . [facility] Comment on above: Performed By: #### P T, CMP, BNP, HS TROP, CK, CBC ####[address] Neutrophils (Bld) [#/Vol] 6.5 10*3/uL Normal 1.8-7.7 [facility] Comment on above: Performed By: #### P T, CMP, BNP, HS TROP, CK, CBC ####[address] Neutrophils/100 WBC (Bld) 80.7 % Normal . [facility] Comment on above: Performed By: #### P T, CMP, BNP, HS TROP, CK, CBC ####[address] NRBC% 0.6 /100{WBC} High 0-0.5 [facility] Comment on above: Performed By: #### P T, CMP, BNP, HS TROP, CK, CBC ####[address] Platelet mean volume (Bld) [Entitic vol] 8.4 fL Normal 6.3-10.7 [facility] Comment on above: Performed By: #### P T, CMP, BNP, HS TROP, CK, CBC ####[address] Platelets (Bld) [#/Vol] 196 10*3/uL Normal 150-450 [facility] Comment on above: Performed By: #### P T, CMP, BNP, HS TROP, CK, CBC ####[address] RBC (Bld) [#/Vol] 5.30 10*6/uL High 3.60-5.00 [facility] Comment on above: Performed By: #### P T, CMP, BNP, HS TROP, CK, CBC ####[address] WBC (Bld) [#/Vol] 8.0 10*3/uL Normal 3.8-11.6 [facility] Comment on above: Performed By: #### P T, CMP, BNP, HS TROP, CK, CBC ####[address] Comprehensive Metabolic Pane violeta 09-12-2024 Albumin [Mass/Vol] 4.0 g/dL Normal 3.5-5.7 [facility] Comment on above: Performed By: #### P T, CMP, BNP, HS TROP, CK, CBC ####[address] Albumin/Globulin [Mass ratio] 1.4 {ratio} Normal [facility] Comment on above: Performed By: #### P T, CMP, BNP, HS TROP, CK, CBC ####[address] ALP [Catalytic activity/Vol] 90 U/L Normal 34-104 [facility] Comment on above: Performed By: #### P T, CMP, BNP, HS TROP, CK, CBC ####[address] ALT [Catalytic activity/Vol] 20 U/L Normal 7-52 [facility] Comment on above: Performed By: #### P T, CMP, BNP, HS TROP, CK, CBC ####[address] Anion gap [Moles/Vol] 14.8 mmol/L Normal 6.0-15.0 [facility] Comment on above: Performed By: #### P T, CMP, BNP, HS TROP, CK, CBC ####[address] AST [Catalytic activity/Vol] 28 U/L Normal 13-39 [facility] Comment on above: Performed By: #### P T, CMP, BNP, HS TROP, CK, CBC ####[address] Bilirubin [Mass/Vol] 1.0 mg/dL Normal 0.3-1.0 [facility] Comment on above: Performed By: #### P T, CMP, BNP, HS TROP, CK, CBC ####[address] Calcium [Mass/Vol] 9.5 mg/dL Normal 8.6-10.3 [facility] Comment on above: Performed By: #### P T, CMP, BNP, HS TROP, CK, CBC ####[address] Chloride [Moles/Vol] 105 mmol/L Normal 98-107 [facility] Comment on above: Performed By: #### P T, CMP, BNP, HS TROP, CK, CBC ####[address] CO2 [Moles/Vol] 23.8 mmol/L Normal 21.0-31.0 [facility] Comment on above: Performed By: #### P T, CMP, BNP, HS TROP, CK, CBC ####[address] Creatinine [Mass/Vol] 1.22 mg/dL High 0.60-1.20 [facility] Comment on above: Performed By: #### P T, CMP, BNP, HS TROP, CK, CBC ####[address] Creatinine Clr Calc Pharmacy 30.27 Normal [facility] Comment on above: Result Comment: PERF ORMED BY: [facility] [address] [facility] [place] [address] PATHOLOGIST COOKER SULFATE AKILAH LOMBARDO M.D. Performed By: #### P T, CMP, BNP, HS TROP, CK, CBC ####[address] Estimated GFR 44.584 mL/Min Normal [facility] Comment on above: Performed By: #### P T, CMP, BNP, HS TROP, CK, CBC ####[address] Globulin (S) [Mass/Vol] 2.8 g/dL Normal [facility] Comment on above: Performed By: #### P T, CMP, BNP, HS TROP, CK, CBC ####[address] Glucose [Mass/Vol] 110 mg/dL High 70-100 [facility] Comment on above: Result Comment: [facility] Glucose Reference Range is dependent on time and content of last meal. Glucose of more than 200 mg/dL in a nonstressed, ambulatory subject supports the diagnosis of Diabetes Mellitus. ADA recommended reference range Performed By: #### P T, CMP, BNP, HS TROP, CK, CBC ####[address] Potassium [Moles/Vol] 3.6 mmol/L Normal 3.5-5.1 [facility] Comment on above: Performed By: #### P T, CMP, BNP, HS TROP, CK, CBC ####[address] Protein [Mass/Vol] 6.8 g/dL Normal 6.4-8.9 [facility] Comment on above: Performed By: #### P T, CMP, BNP, HS TROP, CK, CBC ####[address] Sodium [Moles/Vol] 140 mmol/L Normal 136-145 [facility] Comment on above: Performed By: #### P T, CMP, BNP, HS TROP, CK, CBC ####[address] Urea nitrogen [Mass/Vol] 29 mg/dL High 7-25 [facility] Comment on above: Performed By: #### P T, CMP, BNP, HS TROP, CK, CBC ####[address] Creatine Kinaseon 09-12-2024 CK [Catalytic activity/Vol] 53 U/L Normal [facility] Comment on above: Performed By: #### P T, CMP, BNP, HS TROP, CK, CBC ####[facility] [id number] [place] [address] [facility] Creatine kinase [Enzymatic a ctivity/volume] in Serum or PlasmaOrdered By: Gracia Craig on 09-12-2024 CK [Catalytic activity/Vol] Creatine kinase [Enzymatic activity/volume] in Serum or Plasma [facility] Creatinine [Mass/volume] in Serum or PlasmaOrdered By: Gracia Craig on 09-12-2024 Creatinine [Mass/Vol] Creatinine [Mass/v olume] in Serum or Plasma High 0.60-1.20 [facility] ECG 12 lead ECGon 09-12-2024 ECG 12 lead ECG [facility] [address] [place] [address] [place] [address] Electrocardiograph Report Signed Patient: Austin Golden MR#: [id number] 8 : 1940 Acct:[id number] Age/Sex: 83 / F ADM Date: 09/12/24 Loc: ER Room: Type: [facility] ER Attending Dr: Ordering Provider: Gracia Craig [...] Electronic ventricular pacemaker Confirmed by Vipin Awad ([id number]) on 2024 6:02:22 PM Referred By: Electronically Signed By: Vipin Awad Transcribed By: [facility] Signed By Vipin Awad MD 09/14/24 1802 Normal [facility] Eosinophils Auto (Bld) [#/Vo l]Ordered By: Gracia Craig on 09-12-2024 Eosinophils (Bld) [#/Vol] Automated eosinophil count 0.0-0.45 [facility] Eosinophils/100 WBC Auto (Bl d)Ordered By: Gracia Craig on 09-12-2024 Eosinophils/100 WBC (Bld) Automated eosinophil % . [facility] Erythrocyte distribution wid th Auto (RBC) [Ratio]Ordered By: Gracia Craig 09-12-2024 Erythrocyte distribution width (RBC) [Ratio] Erythrocyte distribution width [Ratio] by Automated count 11.9-15.3 [facility] Globulin Calc (S) [Mass/Vol] Ordered By: Gracia Craig 09-12-2024 Globulin (S) [Mass/Vol] Serum globulin measurement by calculation (mass/volume) [facility] Glucose [Mass/volume] in Ser um or PlasmaOrdered By: Gracia Craig 09-12-2024 Glucose [Mass/Vol] Glucose [Mass/volume ] in Serum or Plasma High 70-100 [facility] Comment on above: ADA recommended refe rence rangeRandom Glucose Reference Range is dependent on time and content of last meal. Glucose of more than 200 mg/dL in a nonstressed, ambulatory subject supports the diagnosis of Diabetes Mellitus. Hematocrit Auto (Bld) [Volum e fraction]Ordered By: Gracia Craig 09-12-2024 Hematocrit (Bld) [Volume fraction] Hematocrit [Volume Fraction] of Blood by Automated count Invalid Interpretation Code 34.0-46.4 [facility] Comment on above: Delta: 40.2 on 09/11-1344 Hemoglobin [Mass/volume] in BloodOrdered By: Gracia Craig 09-12-2024 Hemoglobin (Bld) [Mass/Vol] Hemoglobin [Mass/volume] in Blood High 11.8-15.4 [facility] INR in Platelet poor plasma by Coagulation assayOrdered By: Gracia Craig 09-12-2024 INR Coag (PPP) [Relative time] INR in Platelet poor plasma by Coagulation assay [facility] Comment on above: INR Therapeutic Rang e [...] erythrocytes in Blood by Automated counOrdered By: Gracai Craig on 09-12-2024 WBC corrected for nucl RBC Auto (Bld) [#/Vol] Leukocytes [#/volume] corrected for nucleated erythrocytes in Blood by Automated coun 3.8-11.6 [facility] Lymphocytes Auto (Bld) [#/Vo l]Ordered By: Gracia Craig on 09-12-2024 Lymphocytes (Bld) [#/Vol] Lymphocytes [#/volume] in Blood by Automated count Low 1.00-4.8 [facility] Lymphocytes/100 WBC Auto (Bl d)Ordered By: Gracia Craig on 09-12-2024 Lymphocytes/100 WBC (Bld) Lymphocytes/100 leukocytes in Blood by Automated count . [facility] MCH Auto (RBC) [Entitic mass ]Ordered By: Gracia Craig on 09-12-2024 MCH (RBC) [Entitic mass] MCH [Entitic mass] by Automated count 24.7-34.3 [facility] MCHC Auto (RBC) [Mass/Vol]Or dered By: Gracia Craig on 09-12-2024 MCHC (RBC) [Mass/Vol] MCHC [Mass/volume] by Automated count 32.0-35.0 [facility] MCV Auto (RBC) [Entitic vol] Ordered By: Gracia Craig 09-12-2024 MCV (RBC) [Entitic vol] MCV [Entitic volume] by Automated count 80-100 [facility] Monocyte distribution width [Entitic volume] in Blood by AutomatedOrdered By: Gracia Craig on 09-12-2024 Monocyte distribution width Auto (Bld) [Entitic vol] Monocyte distribution width [Entitic volume] in Blood by Automated 0.00-20.00 [facility] Monocytes Auto (Bld) [#/Vol] Ordered By: Gracia Craig on 09-12-2024 Monocytes (Bld) [#/Vol] Automated blood monocyte count 0.0-0.8 [facility] Monocytes/100 WBC Auto (Bld) Ordered By: Gracia Craig on 09-12-2024 Monocytes/100 WBC (Bld) Automated monocyte % . [facility] Natriuretic peptide B [Mass/ Vol]Ordered By: Gracia Craig on 09-12-2024 Natriuretic peptide B (Bld) [Mass/Vol] BNP ser/plas High 5-100 [facility] Neutrophils Auto (Bld) [#/Vo l]Ordered By: Gracia Craig on 09-12-2024 Neutrophils (Bld) [#/Vol] Neutrophils [#/volume] in Blood by Automated count 1.8-7.7 [facility] Neutrophils/100 WBC Auto (Bl d)Ordered By: Gracia Craig on 09-12-2024 Neutrophils/100 WBC (Bld) Automated neutrophil % . [facility] No Panel InformationOrdered By: Gracia Craig on 09-12-2024 Estimated GFR (CKD-EPI) 44.584 mL/Min [facility] Creatinine Clearance (Chem 30.27 [facility] Nucleated erythrocytes [Pres ence] in Blood by Automated countOrdered By: Gracia Craig on 09-12-2024 Nucleated RBC Auto Ql (Bld) Nucleated erythrocytes [Presence] in Blood by Automated count High 0-0.5 [facility] Platelet mean volume Auto (B ld) [Entitic vol]Ordered By: Gracia Craig on 09-12-2024 Platelet mean volume (Bld) [Entitic vol] Platelet mean volume [Entitic volume] in Blood by Automated count 6.3-10.7 [facility] Platelets Auto (Bld) [#/Vol] Ordered By: Gracia Craig 09-12-2024 Platelets (Bld) [#/Vol] Platelets [#/volume] in Blood by Automated count 150-450 [facility] Potassium [Moles/volume] in Serum or PlasmaOrdered By: Gracia Craig 09-12-2024 Potassium [Moles/Vol] Potassium [Moles/v olume] in Serum or Plasma 3.5-5.1 [facility] Protein [Mass/volume] in Ser um or PlasmaOrdered By: Gracia Craig 09-12-2024 Protein [Mass/Vol] Protein [Mass/volume ] in Serum or Plasma 6.4-8.9 [facility] Prothrombin Time INRon 09-12 INR Coag (PPP) [Relative time] 1.6 {INR} Normal [facility] Comment on above: Result Comment: [...] heart valves: 3 - 4.5 PERFORMED BY: [facility] [address] [id number] PATHOLOGIST COOKER SULFATE AKILAH LOMBARDO M.D. Performed By: #### P T, CMP, BNP, HS TROP, CK, CBC ####[facility] [id number] [place] [id number] [facility] PT Coag (PPP) [Time] 18.3 s High 9.0-12.9 [facility] Comment on above: Result Comment: A matocrit value greater than 55% may lead to inaccurate results in coagulation testing. Patients having hematocrit values >55% require a special collection tube for coagulation studies. Please contact the laboratory at [phone] for redraw instructions. Performed By: #### P T, CMP, BNP, HS TROP, CK, CBC ####[facility] [place] [id number] [facility] Prothrombin time (PT)Ordered By: Gracia Craig on 09-12-2024 PT Coag (PPP) [Time] Prothrombin time (PT) High 9.0- 12.9 [facility] Comment on above: A hematocrit value g reater than 55% may lead to inaccurate results in coagulation testing. Patients having hematocrit values >55% require a special collection tube for coagulation studies. Please contact the laboratory at [phone] for redraw instructions. RBC Auto (Bld) [#/Vol]Ordere d By: Gracia Craig on 09-12-2024 RBC (Bld) [#/Vol] Erythrocytes [#/volu me] in Blood by Automated count High 3.60-5.00 [facility] Respiratory specimen influen za A virus, influenza B virus, respiratory syncytical virOrdered By: Gracia Craig on 09-12-2024 SARS-CoV-2 (COVID-19) RNA GUILLERMO+probe Ql (Unsp spec) Respiratory specimen influenza A virus, influenza B virus, respiratory syncytical vir [facility] Serum or plasma albumin/glob ulin mass ratioOrdered By: Gracia Craig on 09-12-2024 Albumin/Globulin [Mass ratio] Serum or plasma albumin/globulin mass ratio [facility] Serum or plasma anion gap de terminationOrdered By: Gracia Craig on 09-12-2024 Anion gap [Moles/Vol] Serum or plasma an ion gap determination 6.0-15.0 [facility] Sodium [Moles/volume] in Ser um or PlasmaOrdered By: Gracia Craig on 09-12-2024 Sodium [Moles/Vol] Sodium [Moles/volume ] in Serum or Plasma 136-145 [facility] Troponin I High Sensitivityo n 09-12-2024 Troponin I High Sensitivity 24 High 0-15 [facility] Comment on above: Result Comment: The Troponin units of report have been changed to meet the Chest Pain Accreditation requirement, element EC5.M1l2. Troponin units are changed from pg/ml to ng/L. Also, the decimal is removed and results are in whole numbers. PERFORMED BY: [facility] [address] [place] [address] PATHOLOGIST COOKER SULFATE AKILAH LOMBARDO M.D. Performed By: #### P T, CMP, BNP, HS TROP, CK, CBC ####[facility] [id number] Troponin I.cardiac [Mass/vol ume] in Serum or Plasma by Detection limit <= 0.01 ng/Ordered By: Gracia Craig on 09-12-2024 Troponin I.cardiac DL <= 0.01 ng/mL [Mass/Vol] Troponin I.cardiac [Mass/volume] in Serum or Plasma by Detection limit <= 0.01 ng/ High 0-15 [facility] Comment on above: The Troponin units o [...] [Mass/volume] in Serum or Plasma High 7-25 [facility] WBC Auto (Bld) [#/Vol]Ordere d By: Gracia Craig on 09-12-2024 WBC (Bld) [#/Vol] Leukocytes [#/volume ] in Blood by Automated count 3.8-11.6 [facility] Alanine aminotransferase [En zymatic activity/volume] in Serum or PlasmaOrdered By: Jazmin العلي on 09-11-2024 ALT [Catalytic activity/Vol] Alanine aminotransferase [Enzymatic activity/volume] in Serum or Plasma 7-52 [facility] Albumin [Mass/volume] in Ser um or Plasma by Bromocresol green (BCG) dye binding methoOrdered By: Jazmin العلي on 09-11-2024 Albumin BCG dye [Mass/Vol] Albumin [Mass/volume] in Serum or Plasma by Bromocresol green (BCG) dye binding metho 3.5-5.7 [facility] Alkaline phosphatase [Enzyma tic activity/volume] in Serum or PlasmaOrdered By: Jazmin العلي on 09-11-2024 ALP [Catalytic activity/Vol] Alkaline phosphatase [Enzymatic activity/volume] in Serum or Plasma 34-104 [facility] Aspartate aminotransferase [ Enzymatic activity/volume] in Serum or PlasmaOrdered By: Jazmin العلي on 09-11-2024 AST [Catalytic activity/Vol] Aspartate aminotransferase [Enzymatic activity/volume] in Serum or Plasma 13-39 [facility] B-Type Natriuretic Peptideon 09-11-2024 Natriuretic peptide B (Bld) [Mass/Vol] 195.0 pg/mL High 5-100 [facility] Comment on above: Result Comment: PERF ORMED BY: [facility] [address] [place] [address] PATHOLOGIST COOKER SULFATE AKILAH LOMBARDO M.D. Performed By: #### C MP, BNP, CBC ####[facility] [id number] [place] [address] [place] Basophils Auto (Bld) [#/Vol] Ordered By: Jazmin العلي on 09-11-2024 Basophils (Bld) [#/Vol] Automated basophil count 0.0-0.2 [facility] Basophils/100 WBC Auto (Bld) Ordered By: Jazmin العلي on 09-11-2024 Basophils/100 WBC (Bld) Automated basophil % . [facility] Bilirubin.total [Mass/volume ] in Serum or PlasmaOrdered By: Jazmin العلي on 09-11-2024 Bilirubin [Mass/Vol] Bilirubin.total [Mass/volume] in Serum or Plasma High 0.3-1.0 [facility] Calcium [Mass/volume] in Ser um or PlasmaOrdered By: Jazmin العلي on 09-11-2024 Calcium [Mass/Vol] Calcium [Mass/volume ] in Serum or Plasma 8.6-10.3 [facility] Carbon dioxide, total [Moles /volume] in Serum or PlasmaOrdered By: Jazmin العلي on 09-11-2024 CO2 [Moles/Vol] Carbon dioxide, tota l [Moles/volume] in Serum or Plasma 21.0-31.0 [facility] Chloride [Moles/volume] in S vaughn or PlasmaOrdered By: Jazmin العلي on 09-11-2024 Chloride [Moles/Vol] Chloride [Moles/vol ume] in Serum or Plasma 98-107 [facility] Complete Blood Count Auto Di ffon 09-11-2024 Basophils (Bld) [#/Vol] 0.1 10*3/uL Normal 0.0-0.2 [facility] Comment on above: Result Comment: PERF ORMED BY: [facility] [address] [facility] [place] [address] PATHOLOGIST COOKER SULFATE AKILAH LOMBARDO M.D. Performed By: #### C MP, BNP, CBC ####[place] [id number] [place] [id number] [place] Basophils/100 WBC (Bld) 0.6 % Normal . [facility] Comment on above: Performed By: #### C MP, BNP, CBC ####[place] [address] [place] Eosinophils (Bld) [#/Vol] 0.2 10*3/uL Normal 0.0-0.45 [facility] Comment on above: Performed By: #### C MP, BNP, CBC ####[address] Eosinophils/100 WBC (Bld) 1.9 % Normal . [facility] Comment on above: Performed By: #### C MP, BNP, CBC ####[address] Erythrocyte distribution width (RBC) [Ratio] 15.1 % Normal 11.9-15.3 [facility] Comment on above: Performed By: #### C MP, BNP, CBC ####[address] Hematocrit (Bld) [Volume fraction] 40.2 % Normal 34.0-46.4 [facility] Comment on above: Performed By: #### C MP, BNP, CBC ####[address] Hemoglobin (Bld) [Mass/Vol] 13.5 g/dL Normal 11.8-15.4 [facility] Comment on above: Performed By: #### C MP, BNP, CBC ####[address] Lymphocytes (Bld) [#/Vol] 1.1 10*3/uL Normal 1.00-4.8 [facility] Comment on above: Performed By: #### C MP, BNP, CBC ####[address] Lymphocytes/100 WBC (Bld) 12.0 % Normal . [facility] Comment on above: Performed By: #### C MP, BNP, CBC ####[address] MCH (RBC) [Entitic mass] 30.6 pg Normal 24.7-34.3 [facility] Comment on above: Performed By: #### C MP, BNP, CBC ####[address] MCV (RBC) [Entitic vol] 90.9 fL Normal 80-100 [facility] Comment on above: Performed By: #### C MP, BNP, CBC ####[address] Mean Corpuscular HGB Conc 33.7 g/dL Normal 32.0-35.0 [facility] Comment on above: Performed By: #### C MP, BNP, CBC ####[address] Monocytes (Bld) [#/Vol] 0.7 10*3/uL Normal 0.0-0.8 [facility] Comment on above: Performed By: #### C MP, BNP, CBC ####[address] Monocytes/100 WBC (Bld) 7.6 % Normal . [facility] Comment on above: Performed By: #### C MP, BNP, CBC ####[address] Neutrophils (Bld) [#/Vol] 7.2 10*3/uL Normal 1.8-7.7 [facility] Comment on above: Performed By: #### C MP, BNP, CBC ####[address] Neutrophils/100 WBC (Bld) 77.9 % Normal . [facility] Comment on above: Performed By: #### C MP, BNP, CBC ####[address] NRBC% 0.1 /100{WBC} Normal 0-0.5 [facility] Comment on above: Performed By: #### C MP, BNP, CBC ####[address] Platelet mean volume (Bld) [Entitic vol] 8.4 fL Normal 6.3-10.7 [facility] Comment on above: Performed By: #### C MP, BNP, CBC ####[place] [id number] [facility] Platelets (Bld) [#/Vol] 245 10*3/uL Normal 150-450 [facility] Comment on above: Performed By: #### C MP, BNP, CBC ####[address] RBC (Bld) [#/Vol] 4.42 10*6/uL Normal 3.60-5.00 [facility] Comment on above: Performed By: #### C MP, BNP, CBC ####[address] WBC (Bld) [#/Vol] 9.2 10*3/uL Normal 3.8-11.6 [facility] Comment on above: Performed By: #### C MP, BNP, CBC ####[address] Comprehensive Metabolic Pane violeta 09-11-2024 Albumin [Mass/Vol] 4.2 g/dL Normal 3.5-5.7 [facility] Comment on above: Performed By: #### C MP, BNP, CBC ####[address] Albumin/Globulin [Mass ratio] 1.8 {ratio} Normal [facility] Comment on above: Performed By: #### C MP, BNP, CBC ####[address] ALP [Catalytic activity/Vol] 78 U/L Normal 34-104 [facility] Comment on above: Result Comment: PERF ORMED BY: [facility] [address] [place] [address] PATHOLOGIST COOKER SULFATE AKILAH LOMBARDO M.D. Performed By: #### C MP, BNP, CBC ####[address] ALT [Catalytic activity/Vol] 19 U/L Normal 7-52 [facility] Comment on above: Performed By: #### C MP, BNP, CBC ####[address] [address] [facility] Anion gap [Moles/Vol] 13.5 mmol/L Normal 6.0-15.0 [facility] Comment on above: Performed By: #### C MP, BNP, CBC ####[place] [id number] [facility] AST [Catalytic activity/Vol] 28 U/L Normal 13-39 [facility] Comment on above: Performed By: #### C MP, BNP, CBC ####[place] [id number] [facility] Bilirubin [Mass/Vol] 1.2 mg/dL High 0.3-1.0 [facility] Comment on above: Performed By: #### C MP, BNP, CBC ####[place] [id number] [facility] Calcium [Mass/Vol] 9.8 mg/dL Normal 8.6-10.3 [facility] Comment on above: Performed By: #### C MP, BNP, CBC ####[place] [id number] [facility] Chloride [Moles/Vol] 103 mmol/L Normal 98-107 [facility] Comment on above: Performed By: #### C MP, BNP, CBC ####[place] [id number] [facility] CO2 [Moles/Vol] 29.3 mmol/L Normal 21.0-31.0 [facility] Comment on above: Performed By: #### C MP, BNP, CBC ####[place] [id number] [facility] Creatinine [Mass/Vol] 1.39 mg/dL High 0.60-1.20 [facility] Comment on above: Performed By: #### C MP, BNP, CBC ####[place] [id number] [facility] Estimated GFR 38.123 mL/Min Normal [facility] Comment on above: Performed By: #### C MP, BNP, CBC ####[address] Globulin (S) [Mass/Vol] 2.4 g/dL Normal [facility] Comment on above: Performed By: #### C MP, BNP, CBC ####[address] Glucose [Mass/Vol] 111 mg/dL High 70-100 [facility] Comment on above: Result Comment: [facility] Glucose Reference Range is dependent on time and content of last meal. Glucose of more than 200 mg/dL in a nonstressed, ambulatory subject supports the diagnosis of Diabetes Mellitus. ADA recommended reference range Performed By: #### C MP, BNP, CBC ####[address] Potassium [Moles/Vol] 3.8 mmol/L Normal 3.5-5.1 [facility] Comment on above: Performed By: #### C MP, BNP, CBC ####[address] Protein [Mass/Vol] 6.6 g/dL Normal 6.4-8.9 [facility] Comment on above: Performed By: #### C MP, BNP, CBC ####[address] Sodium [Moles/Vol] 142 mmol/L Normal 136-145 [facility] Comment on above: Performed By: #### C MP, BNP, CBC ####[address] Urea nitrogen [Mass/Vol] 29 mg/dL High 7-25 [facility] Comment on above: Performed By: #### C MP, BNP, CBC ####[address] Creatinine [Mass/volume] in Serum or PlasmaOrdered By: Jazmin العلي on 09-11-2024 Creatinine [Mass/Vol] Creatinine [Mass/v olume] in Serum or Plasma High 0.60-1.20 [facility] Eosinophils Auto (Bld) [#/Vo l]Ordered By: Jazmin العلي on 09-11-2024 Eosinophils (Bld) [#/Vol] Automated eosinophil count 0.0-0.45 [facility] Eosinophils/100 WBC Auto (Bl d)Ordered By: Jazmin العلي on 09-11-2024 Eosinophils/100 WBC (Bld) Automated eosinophil % . [facility] Erythrocyte distribution wid th Auto (RBC) [Ratio]Ordered By: Jazmin العلي on 09-11-2024 Erythrocyte distribution width (RBC) [Ratio] Erythrocyte distribution width [Ratio] by Automated count 11.9-15.3 [facility] Globulin Calc (S) [Mass/Vol] Ordered By: Jazmin العلي on 09-11-2024 Globulin (S) [Mass/Vol] Serum globulin measurement by calculation (mass/volume) [facility] Glucose [Mass/volume] in Ser um or PlasmaOrdered By: Jazmin العلي on 09-11-2024 Glucose [Mass/Vol] Glucose [Mass/volume ] in Serum or Plasma High 70-100 [facility] Comment on above: ADA recommended refe rence rangeRandom Glucose Reference Range is dependent on time and content of last meal. Glucose of more than 200 mg/dL in a nonstressed, ambulatory subject supports the diagnosis of Diabetes Mellitus. Hematocrit Auto (Bld) [Volum e fraction]Ordered By: Jazmin العلي on 09-11-2024 Hematocrit (Bld) [Volume fraction] Hematocrit [Volume Fraction] of Blood by Automated count 34.0-46.4 [facility] Hemoglobin [Mass/volume] in BloodOrdered By: Jazmin العلي 09-11-2024 Hemoglobin (Bld) [Mass/Vol] Hemoglobin [Mass/volume] in Blood 11.8-15.4 [facility] Leukocytes [#/volume] correc anne marie for nucleated erythrocytes in Blood by Automated counOrdered By: Jazmin العلي 09-11-2024 WBC corrected for nucl RBC Auto (Bld) [#/Vol] Leukocytes [#/volume] corrected for nucleated erythrocytes in Blood by Automated coun 3.8-11.6 [facility] Lymphocytes Auto (Bld) [#/Vo l]Ordered By: Jazmin العلي 09-11-2024 Lymphocytes (Bld) [#/Vol] Lymphocytes [#/volume] in Blood by Automated count 1.00-4.8 [facility] Lymphocytes/100 WBC Auto (Bl d)Ordered By: Jazmin العلي on 09-11-2024 Lymphocytes/100 WBC (Bld) Lymphocytes/100 leukocytes in Blood by Automated count . [facility] MCH Auto (RBC) [Entitic mass ]Ordered By: Jazmin العلي on 09-11-2024 MCH (RBC) [Entitic mass] MCH [Entitic mass] by Automated count 24.7-34.3 [facility] MCHC Auto (RBC) [Mass/Vol]Or dered By: Jazmin العلي on 09-11-2024 MCHC (RBC) [Mass/Vol] MCHC [Mass/volume] by Automated count 32.0-35.0 [facility] MCV Auto (RBC) [Entitic vol] Ordered By: Jazmin العلي on 09-11-2024 MCV (RBC) [Entitic vol] MCV [Entitic volume] by Automated count 80-100 [facility] Monocytes Auto (Bld) [#/Vol] Ordered By: Jazmin العلي on 09-11-2024 Monocytes (Bld) [#/Vol] Automated blood monocyte count 0.0-0.8 [facility] Monocytes/100 WBC Auto (Bld) Ordered By: Jazmin العلي on 09-11-2024 Monocytes/100 WBC (Bld) Automated monocyte % . [facility] Natriuretic peptide B [Mass/ Vol]Ordered By: Jazmin العلي on 09-11-2024 Natriuretic peptide B (Bld) [Mass/Vol] BNP ser/plas High 5-100 [facility] Neutrophils Auto (Bld) [#/Vo l]Ordered By: Jazmin العلي on 09-11-2024 Neutrophils (Bld) [#/Vol] Neutrophils [#/volume] in Blood by Automated count 1.8-7.7 [facility] Neutrophils/100 WBC Auto (Bl d)Ordered By: Jazmin العلي on 09-11-2024 Neutrophils/100 WBC (Bld) Automated neutrophil % . [facility] No Panel InformationOrdered By: Jazmin العلي on 09-11-2024 Estimated GFR (CKD-EPI) 38.123 mL/Min [facility] Creatinine Clearance (Chem N/A [facility] Nucleated erythrocytes [Pres ence] in Blood by Automated countOrdered By: Jazmin العلي on 09-11-2024 Nucleated RBC Auto Ql (Bld) Nucleated erythrocytes [Presence] in Blood by Automated count 0-0.5 [facility] Platelet mean volume Auto (B ld) [Entitic vol]Ordered By: Jazmin العلي on 09-11-2024 Platelet mean volume (Bld) [Entitic vol] Platelet mean volume [Entitic volume] in Blood by Automated count 6.3-10.7 [facility] Platelets Auto (Bld) [#/Vol] Ordered By: Jazmin العلي on 09-11-2024 Platelets (Bld) [#/Vol] Platelets [#/volume] in Blood by Automated count 150-450 [facility] Potassium [Moles/volume] in Serum or PlasmaOrdered By: Jazmin العلي 09-11-2024 Potassium [Moles/Vol] Potassium [Moles/v olume] in Serum or Plasma 3.5-5.1 [facility] Protein [Mass/volume] in Ser um or PlasmaOrdered By: Jazmin العلي 09-11-2024 Protein [Mass/Vol] Protein [Mass/volume ] in Serum or Plasma 6.4-8.9 [facility] RBC Auto (Bld) [#/Vol]Ordere d By: Jazmin العلي on 09-11-2024 RBC (Bld) [#/Vol] Erythrocytes [#/volu me] in Blood by Automated count 3.60-5.00 [facility] Serum or plasma albumin/glob ulin mass ratioOrdered By: Jazmin العلي 09-11-2024 Albumin/Globulin [Mass ratio] Serum or plasma albumin/globulin mass ratio [facility] Serum or plasma anion gap de terminationOrdered By: Jazmin العلي 09-11-2024 Anion gap [Moles/Vol] Serum or plasma an ion gap determination 6.0-15.0 [facility] Sodium [Moles/volume] in Ser um or PlasmaOrdered By: Jazmin العلي 09-11-2024 Sodium [Moles/Vol] Sodium [Moles/volume ] in Serum or Plasma 136-145 [facility] Urea nitrogen [Mass/volume] in Serum or PlasmaOrdered By: Jazmin العلي 09-11-2024 Urea nitrogen [Mass/Vol] Urea nitrogen [Mass/volume] in Serum or Plasma High 03-13 [facility] WBC Auto (Bld) [#/Vol]Ordere d By: Jazmin العلي on 09-11-2024 WBC (Bld) [#/Vol] Leukocytes [#/volume ] in Blood by Automated count 3.8-11.6 [facility] X-ray reportOrdered By: Juan Diego Carson on 09-11-2024 Study report [facility] Main [place] [id number] XRay Report Signed Patient: Austin Golden MR#: [id number] : 1940 Acct:[id number] Age/Sex: 83 / F ADM Date: 5 Loc: XD Room: Type: [facility] Attending Dr: Jazmin العلي DO Copies to: [...] Carson Jr., D.O.09/11/2024 3:37 PM Dictation Location: [place] [address] Transcribed By: [facility] 09/11/24 153 Dictated By: Nnamdi Carson Jr, DO 09/11/24 153 Signed By: 09/11/24 1537 [facility] XR ribs RT min 3V w CXR1V*on 09-11-2024 XR ribs RT min 3V w CXR1V* [facility] Main [address] [address] XRay Report Signed Patient: Austin Golden MR#: [id number] 8 : 1940 Acct:[id number] Age/Sex: 83 / F ADM Date: 09/11/24 Loc: XD Room: Type: [facility] Attending Dr: Jazmin العلي DO Copies to: [...] Carson Jr., D.O.09/11/2024 3:37 PM Dictation Location: [place] [address] Transcribed By: [facility] 09/11/24 1537 Dictated By: Nnamdi Carson Jr, DO 09/11/24 1536 Signed By: 09/11/24 1537 Normal [facility] Influenza virus B Ag [Presen ce] in Upper respiratory specimen by Rapid immunoassayon 09-09-2024 FLUBV Ag IA.rapid Ql (Nph) Influenza virus B Ag [Presence] in Upper respiratory specimen by Rapid immunoassay [facility] No Panel Informationon 09-09 Influenza Type A (Rapid) Negative [facility] POC SARS CoV-2 Antigen Negative [facility] ECG 12 Leadon 09-05-2024 Atrial flutter with heart rate of [address]-T changes and intraventricular conduction delay [facility] Work Phone: X-ray reportOrdered By: Jadiel Borja on 09-05-2024 Study report [facility] Main [address] [address] XRay Report Signed Patient: Austin Golden MR#: [id number] : 1940 Acct:[id number] Age/Sex: 83 / F ADM Date: 5 Loc: XD Room: Type: REG CLI Attending Dr: Yesica Astudillo MD Copies to: Yesica Astudillo MD~ Ordering Provider: Yesica Astudillo MD Date of Service: 09/05/24 XR/XR thoracic spine 2V: PAIN ([id number]) XR/XR cervical spine 5V*: PAIN 5 views [...] Juanito Borja M.D.09/05/2024 4:55 PM Dictation Location: [place] [address] Transcribed By: [facility] 09/05/241654 Dictated By: Juanito Borja DO 09/05/24 165 Signed By: 09/05/24 1655 [facility] XR thoracic spine 2Von 09-05 XR thoracic spine 2V [facility] Main [place] [address] [place] [id number] XRay Report Signed Patient: Austin Golden MR#: [id number] 8 : 1940 Acct:[id number] Age/Sex: 83 / F ADM Date: 09/05/24 Loc: XD Room: Type: [facility] CLI Attending Dr: Yesica Astudillo MD Copies to: Yesica Astudillo MD Ordering Provider: Yescia Astudillo MD Date of Service: 09/05/24 XR/XR thoracic spine 2V: PAIN ([id number]) XR/XR cervical spine 5V*: PAIN 5 views [...] Juanito Borja M.D.09/05/2024 4:55 PM Dictation Location: [employer] Transcribed By: [facility] 09/05/241654 Dictated By: Juanito Borja DO 09/05/241650 Signed By: 09/05/241654 Normal [facility] Progress Noteson 08-18-2024 Vp Director Of Creative Strategy Authentication Interface Message Text Documentation: Mode: Telephone Patient Patient Work Phone: Patient Cell Preferred phone: [phone] Consent: I confirmed patient understanding of the [...] found for: INR Assessment and Plan Austin Chalino Golden is a 83 year old female [...] Yung MD Division of Gastroenterology AND Hepatology [facility] 08/18/24, 5:01 PM Normal [facility] Telephone Encounteron 2023 Vp Director Of Creative Strategy Authentication Interface Message Text Situation: Call back Background: Pt would like to have a phone appointment with her doctor. Assessment: Please Advise Recommendation: Pt can be reached at Phone numbers Normal [facility] Progress Noteson 07-29-2024 Vp Director Of Creative Strategy Authentication Interface Message Text This encounter was opened in error. Patient was a No-Show (she was admitted to hospital at time of this appt). Please disregard. Normal [facility] En[facility] 2023 Vp Director Of Creative Strategy Authentication Interface Message Text Pt calling to reschedule the Televisit with Dr. Katie Yung that she missed on 07/22/2024 and the tree is not providing the option of televisits. Pt states that she was in the hospital for heart issues. Please return Pt's call at: . Thank you Normal The [employer] Basic Metabolic Panelon 12-0 Anion gap [Moles/Vol] 10.8 mmol/L Normal 6.0-15.0 [facility] e [facility] Comment on above: Performed By: #### B MP, MG ####[place] [id number] [address] Calcium [Mass/Vol] 8.6 mg/dL Normal 8.6-10.3 [facility] Comment on above: Performed By: #### B MP, MG ####[facility] [place] [id number] [facility] Chloride [Moles/Vol] 106 mmol/L Normal 98-107 [facility] Comment on above: Performed By: #### B MP, MG ####[facility] [place] [id number] [facility] CO2 [Moles/Vol] 29.0 mmol/L Normal 21.0-31.0 [facility] Comment on above: Performed By: #### B MP, MG ####[address] Creatinine [Mass/Vol] 1.25 mg/dL High 0.60-1.20 [facility] Comment on above: Performed By: #### B MP, MG ####[address] Creatinine Clr Calc Pharmacy 30.08 Normal [facility] Comment on above: Performed By: #### B MP, MG ####[address] Estimated GFR 43.302 mL/Min Normal [facility] Comment on above: Performed By: #### B MP, MG ####[address] Glucose [Mass/Vol] 102 mg/dL High 70-100 [facility] Comment on above: Result Comment: [facility] Glucose Reference Range is dependent on time and content of last meal. Glucose of more than 200 mg/dL in a nonstressed, ambulatory subject supports the diagnosis of Diabetes Mellitus. ADA recommended reference range Performed By: #### B MP, MG ####[address] Potassium [Moles/Vol] 3.8 mmol/L Normal 3.5-5.1 [facility] Comment on above: Performed By: #### B MP, MG ####[address] Sodium [Moles/Vol] 142 mmol/L Normal 136-145 [facility] Comment on above: Performed By: #### B MP, MG ####[address] Urea nitrogen [Mass/Vol] 18 mg/dL Normal 7-25 [facility] Comment on above: Performed By: #### B MP, MG ####[address] Calcium [Mass/volume] in Ser um or PlasmaOrdered By: Fahad Kim on 07-24-2024 Calcium [Mass/Vol] Calcium [Mass/volume ] in Serum or Plasma 8.6-10.3 [facility] Carbon dioxide, total [Moles /volume] in Serum or PlasmaOrdered By: Fahad Kim on 07-24-2024 CO2 [Moles/Vol] Carbon dioxide, tota l [Moles/volume] in Serum or Plasma 21.0-31.0 [facility] Chloride [Moles/volume] in S vaughn or PlasmaOrdered By: Fahad Kim on 07-24-2024 Chloride [Moles/Vol] Chloride [Moles/vol ume] in Serum or Plasma 98-107 [facility] Creatinine [Mass/volume] in Serum or PlasmaOrdered By: Fahad Kim on 07-24-2024 Creatinine [Mass/Vol] Creatinine [Mass/v olume] in Serum or Plasma High 0.60-1.20 [facility] Glucose [Mass/volume] in Ser um or PlasmaOrdered By: Fahad Kim on 07-24-2024 Glucose [Mass/Vol] Glucose [Mass/volume ] in Serum or Plasma High 70-100 [facility] Comment on above: ADA recommended refe rence rangeRandom Glucose Reference Range is dependent on time and content of last meal. Glucose of more than 200 mg/dL in a nonstressed, ambulatory subject supports the diagnosis of Diabetes Mellitus. Magnesiumon 07-24-2024 Magnesium [Mass/Vol] 1.9 mg/dL Normal 1.9-2.7 [facility] Comment on above: Result Comment: PERF ORMED BY: [facility] [address] [place] [address] PATHOLOGIST COOKER SULFATE AKILAH LOMBARDO M.D. Performed By: #### B MG LESTER ####[facility] [address] [place] [address] [facility] Magnesium [Mass/volume] in S vaughn or PlasmaOrdered By: Fahad Kim on 07-24-2024 Magnesium [Mass/Vol] Magnesium [Mass/vol ume] in Serum or Plasma 1.9-2.7 [facility] No Panel InformationOrdered By: Fahad Kim on 07-24-2024 Estimated GFR (CKD-EPI) 43.302 mL/Min [facility] Pharmacy Creatinine Clearance (Chem 30.08 [facility] Potassium [Moles/volume] in Serum or PlasmaOrdered By: Fahad Kim on 07-24-2024 Potassium [Moles/Vol] Potassium [Moles/v olume] in Serum or Plasma 3.5-5.1 [facility] Serum or plasma anion gap de terminationOrdered By: Fahad Kim on 07-24-2024 Anion gap [Moles/Vol] Serum or plasma an ion gap determination 6.0-15.0 [facility] Sodium [Moles/volume] in Ser um or PlasmaOrdered By: Fahad Kim on 07-24-2024 Sodium [Moles/Vol] Sodium [Moles/volume ] in Serum or Plasma 136-145 [facility] Urea nitrogen [Mass/volume] in Serum or PlasmaOrdered By: Fahad Kim on 07-24-2024 Urea nitrogen [Mass/Vol] Urea nitrogen [Mass/volume] in Serum or Plasma 7-25 [facility] Basic Metabolic Panelon 12-0 Anion gap [Moles/Vol] 11.2 mmol/L Normal 6.0-15.0 [facility] e [facility] Comment on above: Performed By: #### Elvira Joseph, BMP ####[facility] [place] [id number] [facility] Calcium [Mass/Vol] 8.7 mg/dL Normal 8.6-10.3 [facility] Comment on above: Performed By: #### M G, BMP ####[facility] [place] [address] [place] Chloride [Moles/Vol] 104 mmol/L Normal 98-107 [facility] Comment on above: Performed By: #### Elvira Joseph, BMP ####[facility] [place] [address] [place] CO2 [Moles/Vol] 28.7 mmol/L Normal 21.0-31.0 [facility] Comment on above: Performed By: #### Elvira Joseph, BMP ####[place] [id number] [facility] Creatinine [Mass/Vol] 1.26 mg/dL High 0.60-1.20 [facility] Comment on above: Performed By: #### M G, BMP ####[address] [address] [facility] Creatinine Clr Calc Pharmacy 29.57 Normal [facility] Comment on above: Performed By: #### Elvira G, BMP ####[place] [address] [place] [address] [facility] Estimated GFR 42.890 mL/Min Normal [facility] Comment on above: Performed By: #### Elvira Joseph, BMP ####[place] [id number] [facility] Glucose [Mass/Vol] 92 mg/dL Normal 70-100 [facility] Comment on above: Result Comment: [facility] Glucose Reference Range is dependent on time and content of last meal. Glucose of more than 200 mg/dL in a nonstressed, ambulatory subject supports the diagnosis of Diabetes Mellitus. ADA recommended reference range Performed By: #### Elvira Joseph, BMP ####[place] [id number] [facility] Potassium [Moles/Vol] 3.9 mmol/L Normal 3.5-5.1 [facility] Comment on above: Performed By: #### Elvira Joseph, BMP ####[place] [id number] [facility] Sodium [Moles/Vol] 140 mmol/L Normal 136-145 [facility] Comment on above: Performed By: #### Elvira Joseph, BMP ####[place] [id number] [facility] Urea nitrogen [Mass/Vol] 19 mg/dL Normal 7-25 [facility] Comment on above: Performed By: #### Elvira G, BMP ####[address] [address] [facility] Magnesiumon 07-23-2024 Magnesium [Mass/Vol] 1.9 mg/dL Normal 1.9-2.7 [facility] Comment on above: Result Comment: PERF ORMED BY: [facility] [address] [place] [id number] PATHOLOGIST COOKER SULFATE AKILAH LOMBARDO M.D. Performed By: #### M Jake, BMP ####[facility] [place] [address] [facility] Alanine aminotransferase [En zymatic activity/volume] in Serum or PlasmaOrdered By: Aroldo Peña on 07-22-2024 ALT [Catalytic activity/Vol] Alanine aminotransferase [Enzymatic activity/volume] in Serum or Plasma 752 [facility] Albumin [Mass/volume] in Ser um or Plasma by Bromocresol green (BCG) dye binding methoOrdered By: Aroldo Peña on 07-22-2024 Albumin BCG dye [Mass/Vol] Albumin [Mass/volume] in Serum or Plasma by Bromocresol green (BCG) dye binding metho Low 3.5-5.7 [facility] Alkaline phosphatase [Enzyma tic activity/volume] in Serum or PlasmaOrdered By: Aroldo Peña on 07-22-2024 ALP [Catalytic activity/Vol] Alkaline phosphatase [Enzymatic activity/volume] in Serum or Plasma 34-104 [facility] Aspartate aminotransferase [ Enzymatic activity/volume] in Serum or PlasmaOrdered By: Aroldo Peña on 07-22-2024 AST [Catalytic activity/Vol] Aspartate aminotransferase [Enzymatic activity/volume] in Serum or Plasma High 13-39 [facility] Bilirubin.total [Mass/volume ] in Serum or PlasmaOrdered By: Aroldo Peña on 07-22-2024 Bilirubin [Mass/Vol] Bilirubin.total [Mass/volume] in Serum or Plasma 0.3-1.0 [facility] Comprehensive Metabolic Pane violeta 07-22-2024 Albumin [Mass/Vol] 3.2 g/dL Low 3.5-5.7 [facility] Comment on above: Performed By: #### C MP ####[facility] [place] [id number] [facility] Albumin/Globulin [Mass ratio] 2.0 {ratio} Normal [facility] Comment on above: Performed By: #### C MP ####[place] [id number] [facility] ALP [Catalytic activity/Vol] 48 U/L Normal 34-104 [facility] Comment on above: Performed By: #### C MP ####[place] [id number] [facility] ALT [Catalytic activity/Vol] 28 U/L Normal 7-52 [facility] Comment on above: Performed By: #### C MP ####[place] [id number] [facility] Anion gap [Moles/Vol] 11.0 mmol/L Normal 6.0-15.0 [facility] e [facility] Comment on above: Performed By: #### C MP ####[address] AST [Catalytic activity/Vol] 40 U/L High 13-39 [facility] Comment on above: Performed By: #### C MP ####[address] Bilirubin [Mass/Vol] 0.6 mg/dL Normal 0.3-1.0 [facility] Comment on above: Performed By: #### C MP ####[place] [id number] [facility] Calcium [Mass/Vol] 8.6 mg/dL Normal 8.6-10.3 [facility] Comment on above: Performed By: #### C MP ####[place] [id number] [facility] Chloride [Moles/Vol] 105 mmol/L Normal 98-107 [facility] Comment on above: Performed By: #### C MP ####[place] [id number] [facility] CO2 [Moles/Vol] 28.7 mmol/L Normal 21.0-31.0 [facility] Comment on above: Performed By: #### C MP ####[place] [id number] [facility] Creatinine [Mass/Vol] 1.20 mg/dL Normal 0.60-1.20 [facility] Comment on above: Performed By: #### C MP ####[address] Creatinine Clr Calc Pharmacy 31.05 Normal [facility] Comment on above: Result Comment: PERF ORMED BY: [facility] [address] [place] [address] PATHOLOGIST COOKER SULFATE AKILAH LOMBARDO M.D. Performed By: #### C MP ####[address] Estimated GFR 45.476 mL/Min Normal [facility] Comment on above: Performed By: #### C MP ####[address] Globulin (S) [Mass/Vol] 1.6 g/dL Normal [facility] Comment on above: Performed By: #### C MP ####[address] Glucose [Mass/Vol] 90 mg/dL Normal 70-100 [facility] Comment on above: Result Comment: [place] Glucose Reference Range is dependent on time and content of last meal. Glucose of more than 200 mg/dL in a nonstressed, ambulatory subject supports the diagnosis of Diabetes Mellitus. ADA recommended reference range Performed By: #### C MP ####[address] Potassium [Moles/Vol] 3.7 mmol/L Normal 3.5-5.1 [facility] Comment on above: Performed By: #### C MP ####[address] Protein [Mass/Vol] 4.8 g/dL Low 6.4-8.9 [facility] Comment on above: Performed By: #### C MP ####[place] [id number] [facility] Sodium [Moles/Vol] 141 mmol/L Normal 136-145 [facility] Comment on above: Performed By: #### C MP ####[place] [id number] [facility] Urea nitrogen [Mass/Vol] 17 mg/dL Normal 7-25 [facility] Comment on above: Performed By: #### C MP ####[place] [id number] [facility] Globulin Calc (S) [Mass/Vol] Ordered By: Aroldo Peña on 07-22-2024 Globulin (S) [Mass/Vol] Serum globulin measurement by calculation (mass/volume) [facility] Protein [Mass/volume] in Ser um or PlasmaOrdered By: Aroldo Peña on 07-22-2024 Protein [Mass/Vol] Protein [Mass/volume ] in Serum or Plasma Low 6.4-8.9 [facility] Serum or plasma albumin/glob ulin mass ratioOrdered By: Aroldo Peña on 07-22-2024 Albumin/Globulin [Mass ratio] Serum or plasma albumin/globulin mass ratio [facility] Troponin I High Sensitivityo n 07-22-2024 Troponin I High Sensitivity 54.4 pg/mL Off scale high 0.0-15.0 [facility] Comment on above: Result Comment: Crit ical Result : Called to and read back by: PAYTON CESPEDES at: 07/22/2024 05:09:56 by:[id number] PERFORMED BY: [facility] [address] [facility] [place] [address] PATHOLOGIST COOKER SULFATE AKILAH LOMBARDO M.D. Performed By: #### H S TROP ####[place] [id number] [facility] Troponin I.cardiac [Mass/vol ume] in Serum or Plasma by Detection limit <= 0.01 ng/Ordered By: Aroldo Peña on 07-22-2024 Troponin I.cardiac DL <= 0.01 ng/mL [Mass/Vol] Troponin I.cardiac [Mass/volume] in Serum or Plasma by Detection limit <= 0.01 ng/ Critically high 0.0-15.0 [facility] Comment on above: Critical Result : Ca lled to and read back by: PAYTON CESPEDES at: 07/22/2024 05:09:56 by:[id number] Basic Metabolic Panelon 12-0 Anion gap [Moles/Vol] 11.0 mmol/L Normal 6.0-15.0 Th e [facility] Comment on above: Performed By: #### B MP, HS TROP ####[place] [address] [place] [address] [facility] Calcium [Mass/Vol] 8.8 mg/dL Normal 8.6-10.3 [facility] Comment on above: Performed By: #### B MP, HS TROP ####[place] [address] [place] [address] [facility] Chloride [Moles/Vol] 104 mmol/L Normal 98-107 [facility] Comment on above: Performed By: #### B MP, HS TROP ####[address] [address] [facility] CO2 [Moles/Vol] 28.5 mmol/L Normal 21.0-31.0 [facility] Comment on above: Performed By: #### B MP, HS TROP ####[address] [address] [facility] Creatinine [Mass/Vol] 1.27 mg/dL High 0.60-1.20 [facility] Comment on above: Performed By: #### B MP, HS TROP ####[address] [address] [facility] Creatinine Clr Calc Pharmacy 29.34 Normal [facility] Comment on above: Result Comment: PERF ORMED BY: [facility] [address] [place] [address] PATHOLOGIST COOKER SULFATE AKILAH LOMBARDO M.D. Performed By: #### B MP, HS TROP ####[address] [address] [facility] Estimated GFR 42.486 mL/Min Normal [facility] Comment on above: Performed By: #### B MP, HS TROP ####[address] [address] [facility] Glucose [Mass/Vol] 114 mg/dL High 70-100 [facility] Comment on above: Result Comment: [facility] Glucose Reference Range is dependent on time and content of last meal. Glucose of more than 200 mg/dL in a nonstressed, ambulatory subject supports the diagnosis of Diabetes Mellitus. ADA recommended reference range Performed By: #### B MP, HS TROP ####[facility] [address] [place] [address] [facility] Potassium [Moles/Vol] 3.5 mmol/L Normal 3.5-5.1 [facility] Comment on above: Performed By: #### B MP, HS TROP ####[facility] [place] [id number] [facility] Sodium [Moles/Vol] 140 mmol/L Normal 136-145 [facility] Comment on above: Performed By: #### B MP, HS TROP ####[facility] [place] [id number] [facility] Urea nitrogen [Mass/Vol] 18 mg/dL Normal 7-25 [facility] Comment on above: Performed By: #### B MP, HS TROP ####[facility] [place] [id number] [place] Basophils Auto (Bld) [#/Vol] on 07-21-2024 Basophils (Bld) [#/Vol] Automated basophil count 0.0-0.1 [facility] Basophils/100 WBC Auto (Bld) on 07-21-2024 Basophils/100 WBC (Bld) Automated basophil % 0.2-2.0 [facility] ECG 12 lead ECGon 07-21-2024 ECG 12 lead ECG [facility] [address] [place] [address] Electrocardiograph Report Signed Patient: Austin Golden MR#: [id number] 8 : 1940 Acct:[id number] Age/Sex: 83 / F ADM Date: 07/21/24 Loc: Room: [address] [place] [address] Type: ADM IN Attending Dr: Fahad Kim [...] Electronic atrial pacemaker Confirmed by Vipin Awad ([id number]) on 07/22/2024 6:59:31 PM Referred By: Electronically Signed By: Vipin Awad Transcribed By: MUS Signed By Vipin Awad MD 07/22/24 3249 Normal [facility] Eosinophils/100 WBC Auto (Bl d)on 07-21-2024 Eosinophils/100 WBC (Bld) Automated eosinophil % 0.9-7.0 [facility] Erythrocyte distribution wid th Auto (RBC) [Ratio]on 07-21-2024 Erythrocyte distribution width (RBC) [Ratio] Erythrocyte distribution width [Ratio] by Automated count 11.0-15.0 [facility] Estimated glomerular filtrat ion rate (GFR) non- Americanon 07-21-2024 GFR/1.73 sq M.predicted among non-blacks MDRD (S/P/Bld) [Vol rate/Area] Estimated glomerular filtration rate (GFR) non- Low >=60 mL/min/1.7 3m 2 [facility] Globulin Calc (S) [Mass/Vol] on 07-21-2024 Globulin (S) [Mass/Vol] Serum globulin measurement by calculation (mass/volume) [facility] Hematocrit Auto (Bld) [Volum e fraction]on 07-21-2024 Hematocrit (Bld) [Volume fraction] Hematocrit [Volume Fraction] of Blood by Automated count 36.0-48.0 [facility] Hemoglobin [Mass/volume] in Bloodon 07-21-2024 Hemoglobin (Bld) [Mass/Vol] Hemoglobin [Mass/volume] in Blood 12.0-16.0 [facility] INR in Platelet poor plasma by Coagulation assayOrdered By: Aroldo Peña on 07-21-2024 INR Coag (PPP) [Relative time] INR in Platelet poor plasma by Coagulation assay [facility] Comment on above: INR Therapeutic Rang e [...] 07-21-2024 Albumin [Mass/Vol] 3.3 g/dL Low 3.4-5.0 [facility] ALP [Catalytic activity/Vol] 73 U/L 46-116 [facility] ALT [Catalytic activity/Vol] 45 U/L 14-59 [facility] Amylase [Catalytic activity/Vol] 21 U/L Low 25-115 [facility] AST [Catalytic activity/Vol] 40 U/L High 15-37 [facility] Bilirubin [Mass/Vol] 0.8 mg/dL 0.2-1.0 [facility] Bilirubin.direct [Mass/Vol] 0.3 mg/dL High 0.0-0.2 [facility] Calcium [Mass/Vol] 10.1 mg/dL 8.5-10.1 [facility] Chloride [Moles/Vol] 103 mmol/L 98-107 [facility] CO2 [Moles/Vol] 25.6 mmol/L 21.0-32.0 [facility] Creatinine [Mass/Vol] 1.65 mg/dL High 0.55-1.02 [facility] GFR/1.73 sq M.predicted MDRD (S/P/Bld) [Vol rate/Area] 36 mL/min/{1.73_m2} Low >=60 mL/min/1.7 3m 2 [facility] Glucose [Mass/Vol] 106 mg/dL 74-106 [facility] Lipase [Catalytic activity/Vol] 23.0 U/L 16.0-77.0 [facility] Potassium [Moles/Vol] 3.9 mmol/L 3.5-5.1 [facility] Protein [Mass/Vol] 6.6 g/dL 6.4-8.2 [facility] Sodium [Moles/Vol] 142 mmol/L 136-145 [facility] Urea nitrogen [Mass/Vol] 18.0 mg/dL 7.0-18.0 [facility] Urea nitrogen/Creatinine [Mass ratio] 10.9 mg/mg [facility] Laboratory - Hematology and Cell countson 07-21-2024 Immature granulocytes/100 WBC (Bld) 0.3 % 0.0-0.5 [facility] Leukocytes [#/volume] correc anne marie for nucleated erythrocytes in Blood by Automated counon 07-21-2024 WBC corrected for nucl RBC Auto (Bld) [#/Vol] Leukocytes [#/volume] corrected for nucleated erythrocytes in Blood by Automated coun High 4.0-11.0 [facility] Lymphocytes Auto (Bld) [#/Vo l]on 07-21-2024 Lymphocytes (Bld) [#/Vol] Lymphocytes [#/volume] in Blood by Automated count 1.2-3.8 [facility] Lymphocytes/100 WBC Auto (Bl d)on 07-21-2024 Lymphocytes/100 WBC (Bld) Lymphocytes/100 leukocytes in Blood by Automated count Low 20.5-60.0 [facility] MCH Auto (RBC) [Entitic mass ]on 07-21-2024 MCH (RBC) [Entitic mass] MCH [Entitic mass] by Automated count 26.7-34.0 [facility] MCHC Auto (RBC) [Mass/Vol]on 07-21-2024 MCHC (RBC) [Mass/Vol] MCHC [Mass/volume] by Automated count 29.9-35.2 [facility] MCV Auto (RBC) [Entitic vol] on 07-21-2024 MCV (RBC) [Entitic vol] MCV [Entitic volume] by Automated count 81.0-99.0 [facility] Magnesiumon 07-21-2024 Magnesium [Mass/Vol] 2.0 mg/dL Normal 1.9-2.7 [facility] Comment on above: Result Comment: PERF ORMED BY: [facility] [address] [place] [id number] PATHOLOGIST COOKER SULFATE AKILAH LOMBARDO M.D. Performed By: #### M Jake, PT ####[facility] [address] [place] [address] [facility] Monocytes Auto (Bld) [#/Vol] on 07-21-2024 Monocytes (Bld) [#/Vol] Automated blood monocyte count 0.3-0.8 [facility] Monocytes/100 WBC Auto (Bld) on 07-21-2024 Monocytes/100 WBC (Bld) Automated monocyte % 1.7-12.0 [facility] Neutrophils Auto (Bld) [#/Vo l]on 07-21-2024 Neutrophils (Bld) [#/Vol] Neutrophils [#/volume] in Blood by Automated count High 1.4-6.5 [facility] Neutrophils/100 WBC Auto (Bl d)on 07-21-2024 Neutrophils/100 WBC (Bld) Automated neutrophil % High 43.0-75.0 [facility] No Panel Informationon 07-21 Eosinophils # (Auto) 0.2 10 3/uL 0.0-0.7 [facility] Immature Granulocyte # (Auto) 0.04 10 3/uL High 0.00-0.03 [facility] Troponin I High Sensitivity 299.5 pg/mL Critically high 4.0-51.3 [facility] Comment on above: RESULTS CALLED TO EMILY [...] volume] in Blood by Automated count 9.5-13.5 [facility] Platelets Auto (Bld) [#/Vol] on 07-21-2024 Platelets (Bld) [#/Vol] Platelets [#/volume] in Blood by Automated count 150-450 [facility] Prothrombin Time INRon 07-21 INR Coag (PPP) [Relative time] 1.3 {INR} Normal [facility] Comment on above: Result Comment: [...] heart valves: 3 - 4.5 PERFORMED BY: [facility] [address] [place] [address] PATHOLOGIST COOKER SULFATE AKILAH LOMBARDO M.D. Performed By: #### M G, PT ####[place] [address] [place] [address] [facility] PT Coag (PPP) [Time] 14.6 s High 9.0-12.9 [facility] Comment on above: Result Comment: A he matocrit value greater than 55% may lead to inaccurate results in coagulation testing. Patients having hematocrit values >55% require a special collection tube for coagulation studies. Please contact the laboratory at [phone] for redraw instructions. Performed By: #### M G, PT ####[facility] [place] [address] [facility] Prothrombin time (PT)Ordered By: Aroldo Peña on 07-21-2024 PT Coag (PPP) [Time] Prothrombin time (PT) High 9.0- 12.9 [facility] Comment on above: A hematocrit value g reater than 55% may lead to inaccurate results in coagulation testing. Patients having hematocrit values >55% require a special collection tube for coagulation studies. Please contact the laboratory at [phone] for redraw instructions. RBC Auto (Bld) [#/Vol]on RBC (Bld) [#/Vol] Erythrocytes [#/volu me] in Blood by Automated count 4.20-5.40 [facility] Serum or plasma albumin/glob ulin mass ratioon 07-21-2024 Albumin/Globulin [Mass ratio] Serum or plasma albumin/globulin mass ratio [facility] Serum or plasma anion gap de terminationon 07-21-2024 Anion gap [Moles/Vol] Serum or plasma an ion gap determination [facility] Telephone Encounteron 2023 Vp [employer] Of [employer] Authentication Interface Message Text Situation: Call transfer from [facility] with breathing issues. Attempt to help with EMS but difficulties. Call to EMS but told unable to send and unable to conference call. Patient disconnected. Attempt to call but no answer. Call to [facility] managed by [facility] whom is contracted via [facility]. Patient lives in independent living managed by [facility]. [facility] will call to have her checked out. Patient needs to get life alert. Background: See above. Cardiology with . Assessment: Message to Dr. Yung. 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 Normal [facility] Troponin I High Sensitivityo n 07-21-2024 Troponin I High Sensitivity 53.5 pg/mL Off scale high 0.0-15.0 [facility] Comment on above: Result Comment: Crit ical Result : Called to and read back by: JARED PANG at: 07/21/2024 23:08:48 by:[id number] PERFORMED BY: [facility] [address] [place] [id number] PATHOLOGIST COOKER SULFATE AKILAH LOMBARDO M.D. Performed By: #### B MP, HS TROP ####[place] [address] [place] [id number] [facility] Basic Metabolic Panelon 11 Anion gap [Moles/Vol] 11.1 mmol/L Normal 6.0-15.0 [facility] Comment on above: Performed By: #### C BC, BMP ####[facility] Calcium [Mass/Vol] 8.3 mg/dL Low 8.6-10.3 [facility] Comment on above: Performed By: #### C BC, BMP ####[address] Chloride [Moles/Vol] 106 mmol/L Normal 98-107 [facility] Comment on above: Performed By: #### C BC, BMP ####[address] CO2 [Moles/Vol] 25.5 mmol/L Normal 21.0-31.0 [facility] Comment on above: Performed By: #### C BC, BMP ####[address] Creatinine [Mass/Vol] 1.07 mg/dL Normal 0.60-1.20 [facility] Comment on above: Performed By: #### C BC, BMP ####[address] Creatinine Clr Calc Pharmacy 36.26 Normal [facility] Comment on above: Result Comment: PERF ORMED BY: [facility] [address] [place] [address] PATHOLOGIST COOKER SULFATE AKILAH LOMBARDO M.D. Performed By: #### C BC, BMP ####[address] Estimated GFR 52.185 mL/Min Normal [facility] Comment on above: Performed By: #### C BC, BMP ####[place] [id number] [facility] Glucose [Mass/Vol] 111 mg/dL High 70-100 [facility] Comment on above: Result Comment: [place] Glucose Reference Range is dependent on time and content of last meal. Glucose of more than 200 mg/dL in a nonstressed, ambulatory subject supports the diagnosis of Diabetes Mellitus. ADA recommended reference range Performed By: #### C BC, BMP ####[address] Potassium [Moles/Vol] 3.6 mmol/L Normal 3.5-5.1 [facility] Comment on above: Performed By: #### C ABI, BMP ####[place] [address] [address] Sodium [Moles/Vol] 139 mmol/L Normal 136-145 [facility] Comment on above: Performed By: #### C ABI, BMP ####[place] [address] [address] Urea nitrogen [Mass/Vol] 23 mg/dL Normal 7-25 [facility] Comment on above: Performed By: #### C ABI, BMP ####[place] [address] [address] Basophils Auto (Bld) [#/Vol] Ordered By: Shilpa Fenton on 07-03-2024 Basophils (Bld) [#/Vol] Automated basophil count 0.0-0.2 [facility] Basophils/100 WBC Auto (Bld) Ordered By: Shilpa Fenton on 07-03-2024 Basophils/100 WBC (Bld) Automated basophil % . [facility] Calcium [Mass/volume] in Ser um or PlasmaOrdered By: Shilpa Fenton on 07-03-2024 Calcium [Mass/Vol] Calcium [Mass/volume ] in Serum or Plasma Low 8.6-10.3 [facility] Carbon dioxide, total [Moles /volume] in Serum or PlasmaOrdered By: Shilpa Fenton on 07-03-2024 CO2 [Moles/Vol] Carbon dioxide, tota l [Moles/volume] in Serum or Plasma 21.0-31.0 [facility] Chloride [Moles/volume] in S vaughn or PlasmaOrdered By: Shilpa Fenton on 07-03-2024 Chloride [Moles/Vol] Chloride [Moles/vol ume] in Serum or Plasma 98-107 [facility] Complete Blood Count Auto Di ffon 07-03-2024 Basophils (Bld) [#/Vol] 0.0 10*3/uL Normal 0.0-0.2 [facility] Comment on above: Result Comment: PERF ORMED BY: [facility] [place] [place] [address] PATHOLOGIST COOKER SULFATE AKILAH LOMBARDO M.D. Performed By: #### C BC, BMP ####[place] [id number] [facility] Basophils/100 WBC (Bld) 0.3 % Normal . [facility] Comment on above: Performed By: #### C BC, BMP ####[address] Eosinophils (Bld) [#/Vol] 0.2 10*3/uL Normal 0.0-0.45 [facility] Comment on above: Performed By: #### C ABI, BMP ####[address] Eosinophils/100 WBC (Bld) 2.3 % Normal . [facility] Comment on above: Performed By: #### C ABI, BMP ####[address] Erythrocyte distribution width (RBC) [Ratio] 14.3 % Normal 11.9-15.3 [facility] Comment on above: Performed By: #### C ABI, BMP ####[address] Hematocrit (Bld) [Volume fraction] 35.3 % Normal 34.0-46.4 [facility] Comment on above: Performed By: #### C ABI, BMP ####[place] [id number] [facility] Hemoglobin (Bld) [Mass/Vol] 11.9 g/dL Normal 11.8-15.4 [facility] Comment on above: Performed By: #### C BC, BMP ####[address] Lymphocytes (Bld) [#/Vol] 1.1 10*3/uL Normal 1.00-4.8 [facility] Comment on above: Performed By: #### C ABI, BMP ####[address] Lymphocytes/100 WBC (Bld) 10.9 % Normal . [facility] Comment on above: Performed By: #### C BC, BMP ####[place] [id number] [facility] MCH (RBC) [Entitic mass] 31.6 pg Normal 24.7-34.3 [facility] Comment on above: Performed By: #### C BC, BMP ####[address] MCV (RBC) [Entitic vol] 93.9 fL Normal 80-100 [facility] Comment on above: Performed By: #### C ABI, BMP ####[address] Mean Corpuscular HGB Conc 33.7 g/dL Normal 32.0-35.0 [facility] Comment on above: Performed By: #### C ABI, BMP ####[address] Monocytes (Bld) [#/Vol] 0.5 10*3/uL Normal 0.0-0.8 [facility] Comment on above: Performed By: #### C ABI, BMP ####[place] [id number] [facility] Monocytes/100 WBC (Bld) 5.6 % Normal . [facility] Comment on above: Performed By: #### C ABI, BMP ####[address] Neutrophils (Bld) [#/Vol] 7.9 10*3/uL High 1.8-7.7 [facility] Comment on above: Performed By: #### C BC, BMP ####[place] [id number] [facility] Neutrophils/100 WBC (Bld) 80.9 % Normal . [facility] Comment on above: Performed By: #### C BC, BMP ####[address] [place] [address] [place] NRBC% 0.1 /100{WBC} Normal 0-0.5 [facility] Comment on above: Performed By: #### C ABI, BMP ####[address] Platelet mean volume (Bld) [Entitic vol] 8.7 fL Normal 6.3-10.7 [facility] Comment on above: Performed By: #### C ABI, BMP ####[address] Platelets (Bld) [#/Vol] 227 10*3/uL Normal 150-450 [facility] Comment on above: Performed By: #### C ABI, BMP ####[address] RBC (Bld) [#/Vol] 3.76 10*6/uL Normal 3.60-5.00 [facility] Comment on above: Performed By: #### C ABI, BMP ####[address] WBC (Bld) [#/Vol] 9.8 10*3/uL Normal 3.8-11.6 [facility] Comment on above: Performed By: #### C ABI, BMP ####[address] Creatinine [Mass/volume] in Serum or PlasmaOrdered By: Shilpa Fenton on 07-03-2024 Creatinine [Mass/Vol] Creatinine [Mass/v olume] in Serum or Plasma 0.60-1.20 [facility] Eosinophils Auto (Bld) [#/Vo l]Ordered By: Shilpa Fenton on 07-03-2024 Eosinophils (Bld) [#/Vol] Automated eosinophil count 0.0-0.45 [facility] Eosinophils/100 WBC Auto (Bl d)Ordered By: Shilpa Fenton on 07-03-2024 Eosinophils/100 WBC (Bld) Automated eosinophil % . [facility] Erythrocyte distribution wid th Auto (RBC) [Ratio]Ordered By: Shilpa Fenton on 07-03-2024 Erythrocyte distribution width (RBC) [Ratio] Erythrocyte distribution width [Ratio] by Automated count 11.9-15.3 [facility] Glucose [Mass/volume] in Ser um or PlasmaOrdered By: Shilpa Fenton on 07-03-2024 Glucose [Mass/Vol] Glucose [Mass/volume ] in Serum or Plasma High 70-100 [facility] Comment on above: ADA recommended refe rence rangeRandom Glucose Reference Range is dependent on time and content of last meal. Glucose of more than 200 mg/dL in a nonstressed, ambulatory subject supports the diagnosis of Diabetes Mellitus. Hematocrit Auto (Bld) [Volum e fraction]Ordered By: Shilpa Fenton on 07-03-2024 Hematocrit (Bld) [Volume fraction] Hematocrit [Volume Fraction] of Blood by Automated count 34.0-46.4 [facility] Hemoglobin [Mass/volume] in BloodOrdered By: Shilpa Fenton on 07-03-2024 Hemoglobin (Bld) [Mass/Vol] Hemoglobin [Mass/volume] in Blood 11.8-15.4 [facility] Leukocytes [#/volume] correc anne marie for nucleated erythrocytes in Blood by Automated counOrdered By: Shilpa Fenton on 07-03-2024 WBC corrected for nucl RBC Auto (Bld) [#/Vol] Leukocytes [#/volume] corrected for nucleated erythrocytes in Blood by Automated coun 3.8-11.6 [facility] Lymphocytes Auto (Bld) [#/Vo l]Ordered By: Shilpa Fenton on 07-03-2024 Lymphocytes (Bld) [#/Vol] Lymphocytes [#/volume] in Blood by Automated count 1.00-4.8 [facility] Lymphocytes/100 WBC Auto (Bl d)Ordered By: Shilpa Fenton on 07-03-2024 Lymphocytes/100 WBC (Bld) Lymphocytes/100 leukocytes in Blood by Automated count . [facility] MCH Auto (RBC) [Entitic mass ]Ordered By: Shilpa Fenton on 07-03-2024 MCH (RBC) [Entitic mass] MCH [Entitic mass] by Automated count 24.7-34.3 [facility] MCHC Auto (RBC) [Mass/Vol]Or dered By: Shilpa Fenton on 07-03-2024 MCHC (RBC) [Mass/Vol] MCHC [Mass/volume] by Automated count 32.0-35.0 [facility] MCV Auto (RBC) [Entitic vol] Ordered By: Shilpa Fenton on 07-03-2024 MCV (RBC) [Entitic vol] MCV [Entitic volume] by Automated count 80-100 [facility] Monocytes Auto (Bld) [#/Vol] Ordered By: Shilpa Fenton on 07-03-2024 Monocytes (Bld) [#/Vol] Automated blood monocyte count 0.0-0.8 [facility] Monocytes/100 WBC Auto (Bld) Ordered By: Shilpa Fenton on 07-03-2024 Monocytes/100 WBC (Bld) Automated monocyte % . [facility] Neutrophils Auto (Bld) [#/Vo l]Ordered By: Shilpa Fenton on 07-03-2024 Neutrophils (Bld) [#/Vol] Neutrophils [#/volume] in Blood by Automated count High 1.8-7.7 [facility] Neutrophils/100 WBC Auto (Bl d)Ordered By: Shilpa Fenton on 07-03-2024 Neutrophils/100 WBC (Bld) Automated neutrophil % . [facility] No Panel InformationOrdered By: Shilpa Fenton on 07-03-2024 Estimated GFR (CKD-EPI) 52.185 mL/Min [facility] Pharmacy Creatinine Clearance (Chem 36.26 [facility] Nucleated erythrocytes [Pres ence] in Blood by Automated countOrdered By: Shilpa Fenton on 07-03-2024 Nucleated RBC Auto Ql (Bld) Nucleated erythrocytes [Presence] in Blood by Automated count 0-0.5 [facility] Platelet mean volume Auto (B ld) [Entitic vol]Ordered By: Shilpa Fenton on 07-03-2024 Platelet mean volume (Bld) [Entitic vol] Platelet mean volume [Entitic volume] in Blood by Automated count 6.3-10.7 [facility] Platelets Auto (Bld) [#/Vol] Ordered By: Shilpa Fenton on 07-03-2024 Platelets (Bld) [#/Vol] Platelets [#/volume] in Blood by Automated count 150-450 [facility] Potassium [Moles/volume] in Serum or PlasmaOrdered By: Shilpa Fenton on 07-03-2024 Potassium [Moles/Vol] Potassium [Moles/v olume] in Serum or Plasma 3.5-5.1 [facility] RBC Auto (Bld) [#/Vol]Ordere d By: Shilpa Fenton on 07-03-2024 RBC (Bld) [#/Vol] Erythrocytes [#/volu me] in Blood by Automated count 3.60-5.00 [facility] Serum or plasma anion gap de terminationOrdered By: Shilpa Fenton on 07-03-2024 Anion gap [Moles/Vol] Serum or plasma an ion gap determination 6.0-15.0 [facility] Sodium [Moles/volume] in Ser um or PlasmaOrdered By: Shilpa Fenton on 07-03-2024 Sodium [Moles/Vol] Sodium [Moles/volume ] in Serum or Plasma 136-145 [facility] Urea nitrogen [Mass/volume] in Serum or PlasmaOrdered By: Shilpa Fenton on 07-03-2024 Urea nitrogen [Mass/Vol] Urea nitrogen [Mass/volume] in Serum or Plasma 7-25 [facility] WBC Auto (Bld) [#/Vol]Ordere d By: Shilpa Fenton on 07-03-2024 WBC (Bld) [#/Vol] Leukocytes [#/volume ] in Blood by Automated count 3.8-11.6 [facility] Basic Metabolic Panelon 06-20 Anion gap [Moles/Vol] 14.7 mmol/L Normal 6.0-15.0 Th e [facility] Comment on above: Performed By: #### B MP ####[facility] [address] [place] [address] [facility] Calcium [Mass/Vol] 8.4 mg/dL Low 8.6-10.3 [facility] Comment on above: Performed By: #### B MP ####[place] [id number] [facility] Chloride [Moles/Vol] 104 mmol/L Normal 98-107 [facility] Comment on above: Performed By: #### B MP ####[place] [id number] [facility] CO2 [Moles/Vol] 23.3 mmol/L Normal 21.0-31.0 [facility] Comment on above: Performed By: #### B MP ####[place] [id number] [facility] Creatinine [Mass/Vol] 1.18 mg/dL Normal 0.60-1.20 [facility] Comment on above: Performed By: #### B MP ####[address] Creatinine Clr Calc Pharmacy 32.31 Normal [facility] Comment on above: Result Comment: PERF ORMED BY: [facility] [address] [place] [id number] PATHOLOGIST COOKER SULFATE AKILAH LOMBARDO M.D. Performed By: #### B MP ####[address] GFR/1.73 sq M.predicted MDRD (S/P/Bld) [Vol rate/Area] 46.403 mL/min/{1.73_m2} Normal [facility] Comment on above: Performed By: #### B MP ####[place] [id number] [facility] Glucose [Mass/Vol] 166 mg/dL High 70-100 [facility] Comment on above: Result Comment: [place] om Glucose Reference Range is dependent on time and content of last meal. Glucose of more than 200 mg/dL in a nonstressed, ambulatory subject supports the diagnosis of Diabetes Mellitus. ADA recommended reference range Performed By: #### B MP ####[place] [id number] [facility] Potassium [Moles/Vol] 4.0 mmol/L Normal 3.5-5.1 [facility] Comment on above: Performed By: #### B MP ####[place] [id number] [facility] Sodium [Moles/Vol] 138 mmol/L Normal 136-145 [facility] Comment on above: Performed By: #### B MP ####[place] [id number] [facility] Urea nitrogen [Mass/Vol] 24 mg/dL Normal 7-25 [facility] Comment on above: Performed By: #### B MP ####[place] [id number] [facility] Anion gap [Moles/Vol] 12.9 mmol/L Normal 6.0-15.0 Th e [facility] Comment on above: Performed By: #### B MP ####[place] [id number] [facility] Calcium [Mass/Vol] 8.4 mg/dL Low 8.6-10.3 [facility] Comment on above: Performed By: #### B MP ####[place] [id number] [facility] Chloride [Moles/Vol] 104 mmol/L Normal 98-107 [facility] Comment on above: Performed By: #### B MP ####[place] [id number] [facility] CO2 [Moles/Vol] 24.2 mmol/L Normal 21.0-31.0 [facility] Comment on above: Performed By: #### B MP ####[place] [id number] [facility] Creatinine [Mass/Vol] 1.07 mg/dL Normal 0.60-1.20 [facility] Comment on above: Performed By: #### B MP ####[place] [id number] [facility] Creatinine Clr Calc Pharmacy 35.63 Normal [facility] Comment on above: Result Comment: PERF ORMED BY: [facility] [address] [place] [id number] PATHOLOGIST COOKER SULFATE VITOR ZARATE M.D. Performed By: #### B MP ####[address] [address] [facility] GFR/1.73 sq M.predicted MDRD (S/P/Bld) [Vol rate/Area] 52.185 mL/min/{1.73_m2} Normal [facility] Comment on above: Performed By: #### B MP ####[place] [id number] [facility] Glucose [Mass/Vol] 101 mg/dL High 70-100 [facility] Comment on above: Result Comment: [facility] Glucose Reference Range is dependent on time and content of last meal. Glucose of more than 200 mg/dL in a nonstressed, ambulatory subject supports the diagnosis of Diabetes Mellitus. ADA recommended reference range Performed By: #### B MP ####[place] [id number] [facility] Potassium [Moles/Vol] 4.1 mmol/L Normal 3.5-5.1 [facility] Comment on above: Performed By: #### B MP ####[place] [id number] [facility] Sodium [Moles/Vol] 137 mmol/L Normal 136-145 [facility] Comment on above: Performed By: #### B MP ####[address] [address] [facility] Urea nitrogen [Mass/Vol] 23 mg/dL Normal 7-25 [facility] Comment on above: Performed By: #### B MP ####[place] [id number] [facility] Complete Blood Count Auto Di ffon 07-02-2024 Basophils (Bld) [#/Vol] 0.1 10*3/uL Normal 0.0-0.2 [facility] Comment on above: Result Comment: PERF ORMED BY: [facility] [address] [place] [address] PATHOLOGIST COOKER SULFATE AKILAH LOMBARDO M.D. Performed By: #### C BC ####[address] Basophils/100 WBC (Bld) 1.3 % Normal . [facility] Comment on above: Performed By: #### C BC ####[address] Eosinophils (Bld) [#/Vol] 0.2 10*3/uL Normal 0.0-0.45 [facility] Comment on above: Performed By: #### C BC ####[address] Eosinophils/100 WBC (Bld) 1.9 % Normal . [facility] Comment on above: Performed By: #### C BC ####[address] Erythrocyte distribution width (RBC) [Ratio] 14.2 % Normal 11.9-15.3 [facility] Comment on above: Performed By: #### C BC ####[address] Hematocrit (Bld) [Volume fraction] 38.5 % Normal 34.0-46.4 [facility] Comment on above: Performed By: #### C BC ####[address] Hemoglobin (Bld) [Mass/Vol] 12.8 g/dL Normal 11.8-15.4 [facility] Comment on above: Performed By: #### C BC ####[address] Lymphocytes (Bld) [#/Vol] 1.7 10*3/uL Normal 1.00-4.8 [facility] Comment on above: Performed By: #### C BC ####[address] Lymphocytes/100 WBC (Bld) 19.1 % Normal . [facility] Comment on above: Performed By: #### C BC ####[address] MCH (RBC) [Entitic mass] 31.5 pg Normal 24.7-34.3 [facility] Comment on above: Performed By: #### C BC ####[address] MCV (RBC) [Entitic vol] 94.4 fL Normal 80-100 [facility] Comment on above: Performed By: #### C BC ####[address] Mean Corpuscular HGB Conc 33.3 g/dL Normal 32.0-35.0 [facility] Comment on above: Performed By: #### C BC ####[address] Monocytes (Bld) [#/Vol] 0.4 10*3/uL Normal 0.0-0.8 [facility] Comment on above: Performed By: #### C BC ####[address] Monocytes/100 WBC (Bld) 4.8 % Normal . [facility] Comment on above: Performed By: #### C BC ####[address] Neutrophils (Bld) [#/Vol] 6.7 10*3/uL Normal 1.8-7.7 [facility] Comment on above: Performed By: #### C BC ####[address] Neutrophils/100 WBC (Bld) 72.9 % Normal . [facility] Comment on above: Performed By: #### C BC ####[address] NRBC% 0.2 /100{WBC} Normal 0-0.5 [facility] Comment on above: Performed By: #### C BC ####[address] Platelet mean volume (Bld) [Entitic vol] 8.2 fL Normal 6.3-10.7 [facility] Comment on above: Performed By: #### C BC ####[place] [address] [place] [id number] [facility] Platelets (Bld) [#/Vol] 238 10*3/uL Normal 150-450 [facility] Comment on above: Performed By: #### C BC ####[place] [address] [place] [address] [facility] RBC (Bld) [#/Vol] 4.08 10*6/uL Normal 3.60-5.00 [facility] Comment on above: Performed By: #### C BC ####[place] [address] [place] [address] [facility] WBC (Bld) [#/Vol] 9.1 10*3/uL Normal 3.8-11.6 [facility] Comment on above: Performed By: #### C BC ####[place] [id number] [facility] ECG 12 lead ECGon 07-02-2024 ECG 12 lead ECG [facility] Main [place] [address] [place] [address] Electrocardiograph Report Signed Patient: Austin Golden MR#: [id number] 8 : 1940 Acct:[id number] Age/Sex: 83 / F ADM Date: 06/30/24 Loc: Room: [address] [place] [address] Type: ADM IN Attending Dr: Shilpa Fenton [...] Debbie Mac MD 1 09/01/23 1602 Normal [facility] ECG 12 lead ECG [facility] Main [address] [address] Electrocardiograph Report Signed Patient: Austin Golden MR#: [id number] 8 : 1940 Acct:[id number] Age/Sex: 83 / F ADM Date: 06/30/24 Loc: 3T Room: [address] [place] [address] Type: ADM IN Attending Dr: Shilpa Fenton [...] Mac MD 1 09/01/23 1600 Normal [facility] ECG post procedureon 024 ECG post procedure [facility] Main [place] [id number] Electrocardiograph Report Signed Patient: Austin Golden MR#: [id number] 8 : 1940 Acct:[id number] Age/Sex: 83 / F ADM Date: 06/30/24 Loc: 3T Room: [address] [place] [address] Type: ADM IN Attending Dr: Shilpa Fenton [...] Mac MD 1 09/01/23 1601 Normal [facility] Glucose Glucometer (BldC) [M ass/Vol]Ordered By: Shilpa Fenton on 07-02-2024 Glucose [Mass/Vol] Capillary blood gluc ose measurement by glucometer (mass/volume) [facility] Comment on above: Random Glucose Refer ence Range is dependent on time and content of last meal. Glucose of more than 200 mg/dL in a nonstressed, ambulatory subject supports the diagnosis of Diabetes Mellitus. Glucose Poct Glucometerson 09-01-2023 Glucose [Mass/Vol] 172 mg/dL Normal [facility] Comment on above: Result Comment: [place] Glucose Reference Range is dependent on time and content of last meal. Glucose of more than 200 mg/dL in a nonstressed, ambulatory subject supports the diagnosis of Diabetes Mellitus. PERFORMED BY: [facility] [address] [place] [address] PATHOLOGIST COOKER SULFATE AKILAH LOMBARDO M.D. Performed By: #### G LULS ####Point of Care testing, Basic Metabolic Panelon 06-20 Anion gap [Moles/Vol] 13.0 mmol/L Normal 6.0-15.0 Th e [facility] Comment on above: Performed By: #### C BC, BMP ####[place] [address] [place] [address] [facility] Calcium [Mass/Vol] 8.2 mg/dL Low 8.6-10.3 [facility] Comment on above: Performed By: #### C BC, BMP ####[place] [id number] [facility] Chloride [Moles/Vol] 105 mmol/L Normal 98-107 [facility] Comment on above: Performed By: #### C BC, BMP ####[address] [address] [facility] CO2 [Moles/Vol] 26.1 mmol/L Normal 21.0-31.0 [facility] Comment on above: Performed By: #### C BC, BMP ####[address] [address] [facility] Creatinine [Mass/Vol] 1.12 mg/dL Normal 0.60-1.20 [facility] Comment on above: Performed By: #### C BC, BMP ####[address] [address] [place] Creatinine Clr Calc Pharmacy 33.15 Normal [facility] Comment on above: Result Comment: PERF ORMED BY: [facility] [address] [place] [address] PATHOLOGIST COOKER SULFATE VITOR ZARATE M.D. Performed By: #### C BC, BMP ####[address] [address] [place] GFR/1.73 sq M.predicted MDRD (S/P/Bld) [Vol rate/Area] 49.402 mL/min/{1.73_m2} Normal [facility] Comment on above: Performed By: #### C BC, BMP ####[address] [address] [facility] Glucose [Mass/Vol] 87 mg/dL Normal 70-100 [facility] Comment on above: Result Comment: [place] Glucose Reference Range is dependent on time and content of last meal. Glucose of more than 200 mg/dL in a nonstressed, ambulatory subject supports the diagnosis of Diabetes Mellitus. ADA recommended reference range Performed By: #### C BC, BMP ####[address] Potassium [Moles/Vol] 4.1 mmol/L Normal 3.5-5.1 [facility] Comment on above: Performed By: #### C BC, BMP ####[address] Sodium [Moles/Vol] 140 mmol/L Normal 136-145 [facility] Comment on above: Performed By: #### C ABI, BMP ####[address] Urea nitrogen [Mass/Vol] 24 mg/dL Normal 7-25 [facility] Comment on above: Performed By: #### C ABI, BMP ####[address] Complete Blood Count Auto Di ffon 07-01-2024 Basophils (Bld) [#/Vol] 0.1 10*3/uL Normal 0.0-0.2 [facility] Comment on above: Result Comment: PERF ORMED BY: [address] [place] [address] PATHOLOGIST COOKER SULFATE VITOR ZARATE M.D. Performed By: #### C ABI, BMP ####[address] Basophils/100 WBC (Bld) 1.0 % Normal . [facility] Comment on above: Performed By: #### C BC, BMP ####[address] Eosinophils (Bld) [#/Vol] 0.2 10*3/uL Normal 0.0-0.45 [facility] Comment on above: Performed By: #### C BC, BMP ####[address] Eosinophils/100 WBC (Bld) 2.5 % Normal . [facility] Comment on above: Performed By: #### C BC, BMP ####[address] Erythrocyte distribution width (RBC) [Ratio] 14.0 % Normal 11.9-15.3 [facility] Comment on above: Performed By: #### C BC, BMP ####[address] Hematocrit (Bld) [Volume fraction] 37.0 % Normal 34.0-46.4 [facility] Comment on above: Performed By: #### C ABI, BMP ####[address] Hemoglobin (Bld) [Mass/Vol] 12.4 g/dL Normal 11.8-15.4 [facility] Comment on above: Performed By: #### C BC, BMP ####[address] Lymphocytes (Bld) [#/Vol] 1.4 10*3/uL Normal 1.00-4.8 [facility] Comment on above: Performed By: #### C ABI, BMP ####[address] Lymphocytes/100 WBC (Bld) 20.3 % Normal . [facility] Comment on above: Performed By: #### C BC, BMP ####[address] MCH (RBC) [Entitic mass] 31.8 pg Normal 24.7-34.3 [facility] Comment on above: Performed By: #### C BC, BMP ####[address] MCV (RBC) [Entitic vol] 95.0 fL Normal 80-100 [facility] Comment on above: Performed By: #### C BC, BMP ####[address] Mean Corpuscular HGB Conc 33.5 g/dL Normal 32.0-35.0 [facility] Comment on above: Performed By: #### C BC, BMP ####[address] Monocytes (Bld) [#/Vol] 0.5 10*3/uL Normal 0.0-0.8 [facility] Comment on above: Performed By: #### C BC, BMP ####[address] Monocytes/100 WBC (Bld) 7.2 % Normal . [facility] Comment on above: Performed By: #### C BC, BMP ####[address] Neutrophils (Bld) [#/Vol] 4.8 10*3/uL Normal 1.8-7.7 [facility] Comment on above: Performed By: #### C BC, BMP ####[address] Neutrophils/100 WBC (Bld) 69.0 % Normal . [facility] Comment on above: Performed By: #### C BC, BMP ####[address] NRBC% 0.2 /100{WBC} Normal 0-0.5 [facility] Comment on above: Performed By: #### C BC, BMP ####[address] Platelet mean volume (Bld) [Entitic vol] 8.9 fL Normal 6.3-10.7 [facility] Comment on above: Performed By: #### C BC, BMP ####[address] Platelets (Bld) [#/Vol] 231 10*3/uL Normal 150-450 [facility] Comment on above: Performed By: #### C BC, BMP ####[address] RBC (Bld) [#/Vol] 3.90 10*6/uL Normal 3.60-5.00 [facility] Comment on above: Performed By: #### C ABI, BMP ####[place] [address] WBC (Bld) [#/Vol] 7.0 10*3/uL Normal 3.8-11.6 [facility] Comment on above: Performed By: #### C ABI, BMP ####[address] ECG 12 lead ECGon 07-01-2024 ECG 12 lead ECG [facility] Main [place] [address] [place] [address] Electrocardiograph Report Signed Patient: Austin Golden MR#: [id number] 8 : 1940 Acct:[id number] Age/Sex: 83 / F ADM Date: 06/30/24 Loc: Room: [address] [place] [address] Type: ADM IN Attending Dr: Shilpa Fenton [...] Mac MD 1 08/31/23 1729 Normal [facility] Troponin I High Sensitivityo n 07-01-2024 Troponin I High Sensitivity 92.3 pg/mL Off scale high 0.0-15.0 [facility] Comment on above: Result Comment: Crit ical Result : Called to and read back by: МАРИЯ MARKS at: 07/01/2024 01:58:44 by:[id number] PERFORMED BY: [facility] [address] [facility] [address] PATHOLOGIST COOKER SULFATE VITOR ZARATE M.D. Performed By: #### H S TROP ####[facility] [place] [id number] [facility] Troponin I.cardiac [Mass/vol ume] in Serum or Plasma by Detection limit <= 0.01 ng/Ordered By: Shilpa Fenton on 07-01-2024 Troponin I.cardiac DL <= 0.01 ng/mL [Mass/Vol] Troponin I.cardiac [Mass/volume] in Serum or Plasma by Detection limit <= 0.01 ng/ Critically high 0.0-15.0 [facility] Comment on above: Critical Result : Ca lled to and read back by: МАРИЯ MARKS at: 07/01/2024 01:58:44 by:[id number] Alanine aminotransferase [En zymatic activity/volume] in Serum or PlasmaOrdered By: Vic Mendez on 06-30-2024 ALT [Catalytic activity/Vol] Alanine aminotransferase [Enzymatic activity/volume] in Serum or Plasma 752 [facility] Albumin [Mass/volume] in Ser um or Plasma by Bromocresol green (BCG) dye binding methoOrdered By: Vic Mendez on 06-30-2024 Albumin BCG dye [Mass/Vol] Albumin [Mass/volume] in Serum or Plasma by Bromocresol green (BCG) dye binding metho 3.5-5.7 [facility] Alkaline phosphatase [Enzyma tic activity/volume] in Serum or PlasmaOrdered By: Vic Mendez on 06-30-2024 ALP [Catalytic activity/Vol] Alkaline phosphatase [Enzymatic activity/volume] in Serum or Plasma 34-104 [facility] Aspartate aminotransferase [ Enzymatic activity/volume] in Serum or PlasmaOrdered By: Vic Mendez on 06-30-2024 AST [Catalytic activity/Vol] Aspartate aminotransferase [Enzymatic activity/volume] in Serum or Plasma 13-39 [facility] B-Type Natriuretic Peptideon 06-30-2024 Natriuretic peptide B (Bld) [Mass/Vol] 84.0 pg/mL Normal 5-100 [facility] Comment on above: Result Comment: PERF ORMED BY: [facility] [address] [place] [address] PATHOLOGIST COOKER SULFATE VITOR ZARATE M.D. Performed By: #### C BC, PT, HS TROP, PTT, CK, CMP, BNP ####[facility] Basophils Auto (Bld) [#/Vol] Ordered By: Vic Mendez on 06-30-2024 Basophils (Bld) [#/Vol] Automated basophil count 0.0-0.2 [facility] Basophils/100 WBC Auto (Bld) Ordered By: Vic Mendez on 06-30-2024 Basophils/100 WBC (Bld) Automated basophil % . [facility] Bilirubin.total [Mass/volume ] in Serum or PlasmaOrdered By: Vic Mendez on 06-30-2024 Bilirubin [Mass/Vol] Bilirubin.total [Mass/volume] in Serum or Plasma 0.3-1.0 [facility] CT head/brain wo conon 06-30 CT head/brain wo con [facility] Main [place] [address] [place] [address] CT Scan Report Signed Patient: Austin Golden MR#: [id number] 8 : 1940 Acct:[id number] Age/Sex: 83 / F ADM Date: 06/30/24 Loc: ER Room: Type: [facility] ER Attending Dr: Copies to: Vic [...] Juanito Borja M.D.06/30/2024 3:47 PM Dictation Location: [place] [address] Transcribed By: [facility] 06/30/24 154 Dictated By: Juanito Borja DO 06/30/24 154 Signed By: 06/30/241546 Normal [facility] Calcium [Mass/volume] in Ser um or PlasmaOrdered By: Vic Mendez on 06-30-2024 Calcium [Mass/Vol] Calcium [Mass/volume ] in Serum or Plasma 8.6-10.3 [facility] Carbon dioxide, total [Moles /volume] in Serum or PlasmaOrdered By: Vic Mendez on 06-30-2024 CO2 [Moles/Vol] Carbon dioxide, tota l [Moles/volume] in Serum or Plasma 21.0-31.0 [facility] Chloride [Moles/volume] in S vaughn or PlasmaOrdered By: Vic Mendez on 06-30-2024 Chloride [Moles/Vol] Chloride [Moles/vol ume] in Serum or Plasma 98-107 [facility] Complete Blood Count Auto Di ffon 06-30-2024 Basophils (Bld) [#/Vol] 0.1 10*3/uL Normal 0.0-0.2 [facility] Comment on above: Result Comment: PERF ORMED BY: [facility] [address] [place] [address] PATHOLOGIST COOKER SULFATE VITOR ZARATE M.D. Performed By: #### C BC, PT, HS TROP, PTT, CK, CMP, BNP ####[facility] [address] [place] [address] [facility] Basophils/100 WBC (Bld) 0.8 % Normal . [facility] Comment on above: Performed By: #### C BC, PT, HS TROP, PTT, CK, CMP, BNP ####[address] Eosinophils (Bld) [#/Vol] 0.2 10*3/uL Normal 0.0-0.45 [facility] Comment on above: Performed By: #### C BC, PT, HS TROP, PTT, CK, CMP, BNP ####[address] Eosinophils/100 WBC (Bld) 1.5 % Normal . [facility] Comment on above: Performed By: #### C BC, PT, HS TROP, PTT, CK, CMP, BNP ####[address] Erythrocyte distribution width (RBC) [Ratio] 14.0 % Normal 11.9-15.3 [facility] Comment on above: Performed By: #### C BC, PT, HS TROP, PTT, CK, CMP, BNP ####[address] Hematocrit (Bld) [Volume fraction] 42.3 % Normal 34.0-46.4 [facility] Comment on above: Performed By: #### C BC, PT, HS TROP, PTT, CK, CMP, BNP ####[address] Hemoglobin (Bld) [Mass/Vol] 14.3 g/dL Normal 11.8-15.4 [facility] Comment on above: Performed By: #### C BC, PT, HS TROP, PTT, CK, CMP, BNP ####[address] Lymphocytes (Bld) [#/Vol] 1.4 10*3/uL Normal 1.00-4.8 [facility] Comment on above: Performed By: #### C BC, PT, HS TROP, PTT, CK, CMP, BNP ####[place] [address] [place] Lymphocytes/100 WBC (Bld) 14.0 % Normal . [facility] Comment on above: Performed By: #### C BC, PT, HS TROP, PTT, CK, CMP, BNP ####[address] MCH (RBC) [Entitic mass] 31.4 pg Normal 24.7-34.3 [facility] Comment on above: Performed By: #### C BC, PT, HS TROP, PTT, CK, CMP, BNP ####[address] MCV (RBC) [Entitic vol] 92.7 fL Normal 80-100 [facility] Comment on above: Performed By: #### C BC, PT, HS TROP, PTT, CK, CMP, BNP ####[address] Mean Corpuscular HGB Conc 33.9 g/dL Normal 32.0-35.0 [facility] Comment on above: Performed By: #### C BC, PT, HS TROP, PTT, CK, CMP, BNP ####[address] Monocytes (Bld) [#/Vol] 0.6 10*3/uL Normal 0.0-0.8 [facility] Comment on above: Performed By: #### C BC, PT, HS TROP, PTT, CK, CMP, BNP ####[address] Monocytes/100 WBC (Bld) 19.87 % Normal 0.00-20.00 [facility] Comment on above: Performed By: #### C BC, PT, HS TROP, PTT, CK, CMP, BNP ####[address] Monocytes/100 WBC (Bld) 5.9 % Normal . [facility] Comment on above: Performed By: #### C BC, PT, HS TROP, PTT, CK, CMP, BNP ####[place] [address] Neutrophils (Bld) [#/Vol] 8.1 10*3/uL High 1.8-7.7 [facility] Comment on above: Performed By: #### C BC, PT, HS TROP, PTT, CK, CMP, BNP ####[address] Neutrophils/100 WBC (Bld) 77.8 % Normal . [facility] Comment on above: Performed By: #### C BC, PT, HS TROP, PTT, CK, CMP, BNP ####[address] NRBC% 0.1 /100{WBC} Normal 0-0.5 [facility] Comment on above: Performed By: #### C BC, PT, HS TROP, PTT, CK, CMP, BNP ####[address] Platelet mean volume (Bld) [Entitic vol] 8.5 fL Normal 6.3-10.7 [facility] Comment on above: Performed By: #### C BC, PT, HS TROP, PTT, CK, CMP, BNP ####[address] Platelets (Bld) [#/Vol] 259 10*3/uL Normal 150-450 [facility] Comment on above: Performed By: #### C BC, PT, HS TROP, PTT, CK, CMP, BNP ####[address] RBC (Bld) [#/Vol] 4.56 10*6/uL Normal 3.60-5.00 [facility] Comment on above: Performed By: #### C BC, PT, HS TROP, PTT, CK, CMP, BNP ####[address] WBC (Bld) [#/Vol] 10.4 10*3/uL Normal 3.8-11.6 [facility] Comment on above: Performed By: #### C BC, PT, HS TROP, PTT, CK, CMP, BNP ####[address] Comprehensive Metabolic Pane violeta 06-30-2024 Albumin [Mass/Vol] 4.3 g/dL Normal 3.5-5.7 [facility] Comment on above: Performed By: #### C BC, PT, HS TROP, PTT, CK, CMP, BNP ####[address] Albumin/Globulin [Mass ratio] 1.8 {ratio} Normal [facility] Comment on above: Performed By: #### C BC, PT, HS TROP, PTT, CK, CMP, BNP ####[address] ALP [Catalytic activity/Vol] 66 U/L Normal 34-104 [facility] Comment on above: Performed By: #### C BC, PT, HS TROP, PTT, CK, CMP, BNP ####[address] ALT [Catalytic activity/Vol] 31 U/L Normal 7-52 [facility] Comment on above: Performed By: #### C BC, PT, HS TROP, PTT, CK, CMP, BNP ####[address] Anion gap [Moles/Vol] 16.9 mmol/L High 6.0-15.0 [facility] Comment on above: Performed By: #### C BC, PT, HS TROP, PTT, CK, CMP, BNP ####[address] AST [Catalytic activity/Vol] 36 U/L Normal 13-39 [facility] Comment on above: Performed By: #### C BC, PT, HS TROP, PTT, CK, CMP, BNP ####[address] Bilirubin [Mass/Vol] 0.9 mg/dL Normal 0.3-1.0 [facility] Comment on above: Performed By: #### C BC, PT, HS TROP, PTT, CK, CMP, BNP ####[address] Calcium [Mass/Vol] 9.2 mg/dL Normal 8.6-10.3 [facility] Comment on above: Performed By: #### C BC, PT, HS TROP, PTT, CK, CMP, BNP ####[address] Chloride [Moles/Vol] 99 mmol/L Normal 98-107 [facility] Comment on above: Performed By: #### C BC, PT, HS TROP, PTT, CK, CMP, BNP ####[address] CO2 [Moles/Vol] 27.6 mmol/L Normal 21.0-31.0 [facility] Comment on above: Performed By: #### C BC, PT, HS TROP, PTT, CK, CMP, BNP ####[address] Creatinine [Mass/Vol] 1.28 mg/dL High 0.60-1.20 [facility] Comment on above: Performed By: #### C BC, PT, HS TROP, PTT, CK, CMP, BNP ####[address] Creatinine Clr Calc Pharmacy 28.68 Normal [facility] Comment on above: Result Comment: PERF ORMED BY: [facility] [address] [facility] [place] [address] PATHOLOGIST COOKER SULFATE VITOR ZARATE M.D. Performed By: #### C BC, PT, HS TROP, PTT, CK, CMP, BNP ####[address] GFR/1.73 sq M.predicted MDRD (S/P/Bld) [Vol rate/Area] 42.087 mL/min/{1.73_m2} Normal [facility] Comment on above: Performed By: #### C BC, PT, HS TROP, PTT, CK, CMP, BNP ####[place] [id number] [address] Globulin (S) [Mass/Vol] 2.4 g/dL Normal [facility] Comment on above: Performed By: #### C BC, PT, HS TROP, PTT, CK, CMP, BNP ####[address] Glucose [Mass/Vol] 116 mg/dL High 70-100 [facility] Comment on above: Result Comment: [facility] Glucose Reference Range is dependent on time and content of last meal. Glucose of more than 200 mg/dL in a nonstressed, ambulatory subject supports the diagnosis of Diabetes Mellitus. ADA recommended reference range Performed By: #### C BC, PT, HS TROP, PTT, CK, CMP, BNP ####[address] Potassium [Moles/Vol] 3.5 mmol/L Normal 3.5-5.1 [facility] Comment on above: Performed By: #### C BC, PT, HS TROP, PTT, CK, CMP, BNP ####[address] Protein [Mass/Vol] 6.7 g/dL Normal 6.4-8.9 [facility] Comment on above: Performed By: #### C BC, PT, HS TROP, PTT, CK, CMP, BNP ####[address] Sodium [Moles/Vol] 140 mmol/L Normal 136-145 [facility] Comment on above: Performed By: #### C BC, PT, HS TROP, PTT, CK, CMP, BNP ####[address] Urea nitrogen [Mass/Vol] 25 mg/dL Normal 7-25 [facility] Comment on above: Performed By: #### C BC, PT, HS TROP, PTT, CK, CMP, BNP ####[place] [id number] [facility] Creatine Kinaseon 06-30-2024 CK [Catalytic activity/Vol] 43 U/L Normal 30-223 [facility] Comment on above: Performed By: #### C BC, PT, HS TROP, PTT, CK, CMP, BNP ####[facility] [id number] Creatine kinase [Enzymatic a ctivity/volume] in Serum or PlasmaOrdered By: Vic Mendez on 06-30-2024 CK [Catalytic activity/Vol] Creatine kinase [Enzymatic activity/volume] in Serum or Plasma 30-223 [facility] Creatinine [Mass/volume] in Serum or PlasmaOrdered By: Vic Mendez on 06-30-2024 Creatinine [Mass/Vol] Creatinine [Mass/v olume] in Serum or Plasma High 0.60-1.20 [facility] Digoxinon 06-30-2024 Digoxin [Mass/Vol] 1.7 ng/mL Normal 0.9-2.0 [facility] Comment on above: Result Comment: Last dose: - PERFORMED BY: [place] [address] PATHOLOGIST COOKER SULFATE VITOR ZARATE M.D. Performed By: #### D IG ####[place] [id number] [facility] Digoxin [Mass/volume] in Ser um or PlasmaOrdered By: Vic Mendez on 06-30-2024 Digoxin [Mass/Vol] Digoxin [Mass/volume ] in Serum or Plasma 0.9-2.0 [facility] Comment on above: Last dose: - ECG 12 lead ECGon 06-30-2024 ECG 12 lead ECG [facility] [place] [address] Electrocardiograph Report Signed Patient: Austin Golden MR#: [id number] 8 : 1940 Acct:[id number] Age/Sex: 83 / F ADM Date: 06/30/24 Loc: Room: [address] [place] [address] Type: ADM IN Attending Dr: Shilpa Fenton [...] ST abnormality Confirmed by Nesha Leger MD ([id number]) on 06/30/2024 9:32:03 PM Referred By: Electronically Signed By: Nesha Leger MD Transcribed By: MUS Signed By Nesha Leger MD 06/20 Normal [facility] ECG 12 lead ECG [facility] [place] [address] Electrocardiograph Report Signed Patient: Austin Golden MR#: [id number] 8 : 1940 Acct:[id number] Age/Sex: 83 / F ADM Date: 06/30/24 Loc: Room: [address] [place] [address] Type: ADM IN Attending Dr: Shilpa Fenton [...] depression laterally Confirmed by Nesha Leger MD ([id number]) on 06/30/2024 9:31:27 PM Referred By: Electronically Signed By: Nesha Leger MD Transcribed By: MUS Signed By Nesha Leger MD 06/20 Normal [facility] Eosinophils Auto (Bld) [#/Vo l]Ordered By: Vic Mendez on 06-30-2024 Eosinophils (Bld) [#/Vol] Automated eosinophil count 0.0-0.45 [facility] Eosinophils/100 WBC Auto (Bl d)Ordered By: Vic Mendez on 06-30-2024 Eosinophils/100 WBC (Bld) Automated eosinophil % . [facility] Erythrocyte distribution wid th Auto (RBC) [Ratio]Ordered By: Vic Mendez on 06-30-2024 Erythrocyte distribution width (RBC) [Ratio] Erythrocyte distribution width [Ratio] by Automated count 11.9-15.3 [facility] Globulin Calc (S) [Mass/Vol] Ordered By: Vic Mendez 06-30-2024 Globulin (S) [Mass/Vol] Serum globulin measurement by calculation (mass/volume) [facility] Glucose [Mass/volume] in Ser um or PlasmaOrdered By: Vic Mendez 06-30-2024 Glucose [Mass/Vol] Glucose [Mass/volume ] in Serum or Plasma High 70-100 [facility] Comment on above: ADA recommended refe rence rangeRandom Glucose Reference Range is dependent on time and content of last meal. Glucose of more than 200 mg/dL in a nonstressed, ambulatory subject supports the diagnosis of Diabetes Mellitus. Hematocrit Auto (Bld) [Volum e fraction]Ordered By: Vic Mendez 06-30-2024 Hematocrit (Bld) [Volume fraction] Hematocrit [Volume Fraction] of Blood by Automated count 34.0-46.4 [facility] Hemoglobin [Mass/volume] in BloodOrdered By: Vic Mendez 06-30-2024 Hemoglobin (Bld) [Mass/Vol] Hemoglobin [Mass/volume] in Blood 11.8-15.4 [facility] INR in Platelet poor plasma by Coagulation assayOrdered By: Vic Mendez 06-30-2024 INR Coag (PPP) [Relative time] INR in Platelet poor plasma by Coagulation assay [facility] Comment on above: INR Therapeutic Rang e [...] erythrocytes in Blood by Automated coun 3.8-11.6 [facility] Lymphocytes Auto (Bld) [#/Vo l]Ordered By: Vic Mendez on 06-30-2024 Lymphocytes (Bld) [#/Vol] Lymphocytes [#/volume] in Blood by Automated count 1.00-4.8 [facility] Lymphocytes/100 WBC Auto (Bl d)Ordered By: Vic Mendez on 06-30-2024 Lymphocytes/100 WBC (Bld) Lymphocytes/100 leukocytes in Blood by Automated count . [facility] MCH Auto (RBC) [Entitic mass ]Ordered By: Vic Mendez on 06-30-2024 MCH (RBC) [Entitic mass] MCH [Entitic mass] by Automated count 24.7-34.3 [facility] MCHC Auto (RBC) [Mass/Vol]Or dered By: Vic Mendez on 06-30-2024 MCHC (RBC) [Mass/Vol] MCHC [Mass/volume] by Automated count 32.0-35.0 [facility] MCV Auto (RBC) [Entitic vol] Ordered By: Vic Mendez on 06-30-2024 MCV (RBC) [Entitic vol] MCV [Entitic volume] by Automated count 80-100 [facility] Monocyte distribution width [Entitic volume] in Blood by AutomatedOrdered By: Vic Mendez on 06-30-2024 Monocyte distribution width Auto (Bld) [Entitic vol] Monocyte distribution width [Entitic volume] in Blood by Automated 0.00-20.00 [facility] Monocytes Auto (Bld) [#/Vol] Ordered By: Vic Mendez on 06-30-2024 Monocytes (Bld) [#/Vol] Automated blood monocyte count 0.0-0.8 [facility] Monocytes/100 WBC Auto (Bld) Ordered By: Vic Mendez on 06-30-2024 Monocytes/100 WBC (Bld) Automated monocyte % . [facility] Natriuretic peptide B [Mass/ Vol]Ordered By: Vic Mendez on 06-30-2024 Natriuretic peptide B (Bld) [Mass/Vol] BNP ser/plas 5-100 [facility] Neutrophils Auto (Bld) [#/Vo l]Ordered By: iVc Mendez on 06-30-2024 Neutrophils (Bld) [#/Vol] Neutrophils [#/volume] in Blood by Automated count High 1.8-7.7 [facility] Neutrophils/100 WBC Auto (Bl d)Ordered By: Vic Mendez on 06-30-2024 Neutrophils/100 WBC (Bld) Automated neutrophil % . [facility] No Panel InformationOrdered By: Vic Mendez on 06-30-2024 Estimated GFR (CKD-EPI) 42.087 mL/Min [facility] Creatinine Clearance (Chem 28.68 [facility] Nucleated erythrocytes [Pres ence] in Blood by Automated countOrdered By: Vic Mendez on 06-30-2024 Nucleated RBC Auto Ql (Bld) Nucleated erythrocytes [Presence] in Blood by Automated count 0-0.5 [facility] Partial Thromboplastin Timeo n 06-30-2024 aPTT Coag (Bld) [Time] 30.9 s Normal 25.1-36.5 [facility] Comment on above: Result Comment: A he matocrit value greater than 55% may lead to inaccurate results in coagulation testing. Patients having hematocrit values >55% require a special collection tube for coagulation studies. Please contact the laboratory at [phone] for redraw instructions. PERFORMED BY: [facility] [address] [place] [address] PATHOLOGIST COOKER SULFATE VITOR ZARATE M.D. Performed By: #### C BC, PT, HS TROP, PTT, CK, CMP, BNP ####[facility] [id number] [place] [address] [facility] Platelet mean volume Auto (B ld) [Entitic vol]Ordered By: Vic Mendez on 06-30-2024 Platelet mean volume (Bld) [Entitic vol] Platelet mean volume [Entitic volume] in Blood by Automated count 6.3-10.7 [facility] Platelets Auto (Bld) [#/Vol] Ordered By: Vic Mendez on 06-30-2024 Platelets (Bld) [#/Vol] Platelets [#/volume] in Blood by Automated count 150-450 [facility] Potassium [Moles/volume] in Serum or PlasmaOrdered By: Vic Mendez on 06-30-2024 Potassium [Moles/Vol] Potassium [Moles/v olume] in Serum or Plasma 3.5-5.1 [facility] Protein [Mass/volume] in Ser um or PlasmaOrdered By: Vic Mendez on 06-30-2024 Protein [Mass/Vol] Protein [Mass/volume ] in Serum or Plasma 6.4-8.9 [facility] Prothrombin Time INRon 06-30 INR Coag (PPP) [Relative time] 1.5 {INR} Normal [facility] Comment on above: Result Comment: [...] PT, HS TROP, PTT, CK, CMP, BNP ####[facility] [id number] [place] [address] [facility] PT Coag (PPP) [Time] 16.9 s High 9.0-12.9 [facility] Comment on above: Result Comment: A he matocrit value greater than 55% may lead to inaccurate results in coagulation testing. Patients having hematocrit values >55% require a special collection tube for coagulation studies. Please contact the laboratory at [phone] for redraw instructions. Performed By: #### C BC, PT, HS TROP, PTT, CK, CMP, BNP ####[facility] [id number] [place] [address] [facility] Prothrombin time (PT)Ordered By: Vic Mendez on 06-30-2024 PT Coag (PPP) [Time] Prothrombin time (PT) High 9.0- 12.9 [facility] Comment on above: A hematocrit value g reater than 55% may lead to inaccurate results in coagulation testing. Patients having hematocrit values >55% require a special collection tube for coagulation studies. Please contact the laboratory at [phone] for redraw instructions. RBC Auto (Bld) [#/Vol]Ordere d By: Vic Mendez on 06-30-2024 RBC (Bld) [#/Vol] Erythrocytes [#/volu me] in Blood by Automated count 3.60-5.00 [facility] Serum or plasma albumin/glob ulin mass ratioOrdered By: Vic Mendez on 06-30-2024 Albumin/Globulin [Mass ratio] Serum or plasma albumin/globulin mass ratio [facility] Serum or plasma anion gap de terminationOrdered By: Vic Mendez on 06-30-2024 Anion gap [Moles/Vol] Serum or plasma an ion gap determination High 6.0-15.0 [facility] Sodium [Moles/volume] in Ser um or PlasmaOrdered By: Vic Mendez on 06-30-2024 Sodium [Moles/Vol] Sodium [Moles/volume ] in Serum or Plasma 136-145 [facility] Troponin I High Sensitivityo n 06-30-2024 Troponin I High Sensitivity 85.6 pg/mL Off scale high 0.0-15.0 [facility] Comment on above: Result Comment: Crit ical Result : Called to and read back by: ZENA [id number] at: 06/30/2024 21:50:47 by:[id number] PERFORMED BY: [place] [address] PATHOLOGIST COOKER SULFATE VITOR ZARATE M.D. Performed By: #### H S TROP ####[address] Troponin I High Sensitivity 101.6 pg/mL Off scale high 0.0-15.0 [facility] Comment on above: Result Comment: Crit ical Result : Called to and read back by: TOMMIE FLOYD/ALPA at: 06/30/2024 16:12:30 by:[id number] PERFORMED BY: [place] [address] PATHOLOGIST COOKER SULFATE VITOR ZARATE M.D. Performed By: #### C BC, PT, HS TROP, PTT, CK, CMP, BNP ####[facility] [id number] [place] [address] [place] Troponin I.cardiac [Mass/vol ume] in Serum or Plasma by Detection limit <= 0.01 ng/Ordered By: Vic Mendez on 06-30-2024 Troponin I.cardiac DL <= 0.01 ng/mL [Mass/Vol] Troponin I.cardiac [Mass/volume] in Serum or Plasma by Detection limit <= 0.01 ng/ Critically high 0.0-15.0 [facility] Comment on above: Critical Result : Ca lled to and read back by: TOMMIE FLOYD/ER at: 06/30/2024 16:12:30 by:[id number] Urea nitrogen [Mass/volume] in Serum or PlasmaOrdered By: Vic Mendez on 06-30-2024 Urea nitrogen [Mass/Vol] Urea nitrogen [Mass/volume] in Serum or Plasma 7-25 [facility] WBC Auto (Bld) [#/Vol]Ordere d By: Vic Mendez on 06-30-2024 WBC (Bld) [#/Vol] Leukocytes [#/volume ] in Blood by Automated count 3.8-11.6 [facility] X-ray reportOrdered By: Jadiel Borja on 06-30-2024 Study report [facility] [place] [address] XRay Report Signed Patient: Austin Golden MR#: [id number] : 1940 Acct:[id number] Age/Sex: 83 / F ADM Date: 4 Loc: ER Room: Type: [facility] ER Attending Dr: Copies to: Vic [...] Juanito Borja M.D.06/30/2024 3:39 PM Dictation Location: [place] [address] Transcribed By: [facility] 06/30/24 153 Dictated By: Juanito Borja DO 06/30/241536 Signed By: 06/30/24 1539 [facility] XR chest 2V*on 06-30-2024 XR chest 2V* [facility] [place] [address] XRay Report Signed Patient: Austin Golden MR#: [id number] 8 : 1940 Acct:[id number] Age/Sex: 83 / F ADM Date: 06/30/24 Loc: ER Room: Type: [facility] Attending Dr: Copies to: Vic Mendez [...] Juanito Borja M.D.06/30/2024 3:39 PM Dictation Location: [place] [address] Transcribed By: [facility] 06/30/24 1539 Dictated By: Juanito Borja DO 06/30/241536 Signed By: 06/30/24 153 Normal [facility] aPTT in Platelet poor plasma by Coagulation assayOrdered By: Vic Mendez on 06-30-2024 aPTT Coag (PPP) [Time] Activated partial thromboplastin time (aPTT) in platelet poor plasma by coagulation a 25.1-36.5 [facility] Comment on above: A hematocrit value g reater than 55% may lead to inaccurate results in coagulation testing. Patients having hematocrit values >55% require a special collection tube for coagulation studies. Please contact the laboratory at [phone] for redraw instructions. [place] BARIUM SWALLOW DOUBLE [...] OralBarium Sulfate 1 Tab Route: Oral FINDINGS: Partition Setter fluoroscopic spot images of the abdomen: Non-obstructive [...] agree with the resident's interpretation. Normal [facility] RF videography Hypopharynx a nd Esophagus [...] OralBarium Sulfate 1 Tab Route: Oral FINDINGS: Partition Setter fluoroscopic spot images of the abdomen: Non-obstructive [...] OralBarium Sulfate 1 Tab Route: Oral FINDINGS: Partition Setter fluoroscopic spot images of the abdomen: Non-obstructive [...] images and agree with the resident's interpretation. [facility] Radiology Study observation (narrative) [facility] RF videography Hypopharynx a nd Esophagus Views W liquid and paste contrast PO during swallowingOrdered By: Ivonne Brooks on 06-26-2024 [facility] Work Phone: Telephone Encounteron 2023 [facility]p Director Of [employer] Authentication Interface Message Text Dr العلي office calling waiting for order to be placed for timed barium esophagogram Jazmin العلي [address] [facility] [address] option #[address] العلي's nurse line Leela Encounter dated 05/29/[address] Yung Recommendations: Obtain timed barium esophagram or endoflip to confirm diagnosis. Dr Yung recommended pt has this procedure Telephone Information: Normal [facility] Telephone Encounteron 2023 Vp Director Of [employer] Authentication Interface Message Text Will forward to Dr. Katie Yung. Normal [facility] Telephone Encounteron 2023 Vp Director Of Creative Strategy Authentication Interface Message Text Sanjuana from [facility] called and wanted to discuss nausea and weakness and unable to eat would like call to discuss Sanjuana [phone] Opt 1 then opt 3 Normal [facility] Anesthesia Postprocedure Taylor luationon 05-30-2024 Vp Director Of Creative Strategy Authentication Interface Message Text Anesthesia Postoperative Assessment: [...] EVENTS: No notable events documented. Normal [facility] Anesthesia Preprocedure Eval uationon 05-29-2024 Vp Director Of Creative Strategy Authentication Interface Message Text ASA: 2 No [...] were discussed with the patient and/or legal packaging sales representative. The risks, benefits and alternatives were reviewed. Questions regarding anesthesia were answered. Patient and/or legal packaging sales representative knows such anesthetics and procedures may be performed by Resident physicians, Certified Anesthesiologist Assistants, or Certified Nurse Anesthetists under the supervision of a physician. The patient /or the patient's legal packaging sales representative agree with the plan for anesthesia. MHPATFORM Normal [facility] Anesthesia Transfer Of Careo n 05-29-2024 Vp Director Of Creative Strategy Authentication Interface Message Text Patient taken to [...] Katie Yung MD Anesthesiologist: Syed Schmidt MD PRODUCT DEVELOPMENT WORKER: Maggie Angela APRN-ANDREA ESOPHAGOGASTRODUODENOSCOPY with HREM catheter [...] was received. Maggie Angela APRN-ANDREA Normal [facility] OP Noteon 05-29-2024 Vp Director Of Creative Strategy Authentication Interface Message Text Patient's Name: Austin Golden Date: 05/29/24 Written informed consent obtained from patient. Endoscopic procedure risks (including but not limited to perforation, infection, bloating and bleeding) benefits and alternatives explained and questions answered. Patient verbalized understanding. Based on history and airway assessment patient is not an appropriate candidate for moderate sedation and will undergo sedation with the assistance of anesthesia physician/PRODUCT DEVELOPMENT WORKER team. Please see corresponding note for full details. Katie Yung MD 05/29/24 1:08 PM Austin Golden 83 year old Surgical Contact Serial Number: [id number] Location: [place] [address] Date: 05/29/2024 [employer]: Katie Yung MD ATTENDING:Katie Yung MD Procedure(s): [...] 50cm. Taped to right cheek. Esophageal dysphagia [700540] TEE PATH SPECIMEN SENT: no SPECIMEN: None [...] PCP. 3. F/u with Amna Powell at [facility] CC: Primary Care Provider: No primary care provider on file. PERSON COMPLETING NOTE: Katie Yung MD 05/29/2024 at 1:08 PM Patient meets criteria for discharge/transfer: Katie Yung MD Normal [facility] Procedureson 05-29-2024 Vp Director Of Creative Strategy Authentication Interface Message Text High Resolution Esophageal Manometry (HREM) Name: Austin Golden : 1940 Indication: Esophageal dysphagia [332815] Attending: Katie Yugn MD no referring provider Operating Communications Maintainer: Jennifer Proctor LPN LES [employer] Residual [...] Katie Yung MD Invalid Interpretation Code [facility] Estimated glomerular filtrat ion rate (GFR) non- Americanon 05-28-2024 GFR/1.73 sq M.predicted among non-blacks MDRD (S/P/Bld) [Vol rate/Area] 30 mL/min/{1.73_m2} Low >=60 mL/min/1.[address] [place] [address] GFR/1.73 sq M.predicted among non-blacks MDRD (S/P/Bld) [Vol rate/Area] Estimated glomerular filtration rate (GFR) non- Low >=60 mL/min/1.[address] [place] [address] Laboratory - Chemistry and C hemistry - challengeon 05-28-2024 Calcium [Mass/Vol] 9.2 mg/dL 8.5-10.1 [facility] Chloride [Moles/Vol] 97 mmol/L Low 98-107 [facility] CO2 [Moles/Vol] 27.8 mmol/L 21.0-32.0 [facility] Creatinine [Mass/Vol] 1.64 mg/dL High 0.55-1.02 [facility] GFR/1.73 sq M.predicted MDRD (S/P/Bld) [Vol rate/Area] 36 mL/min/{1.73_m2} Low >=60 mL/min/1.[address] [place] [address] Glucose [Mass/Vol] 178 mg/dL High 74-106 [facility] Natriuretic peptide B (Bld) [Mass/Vol] 1199.0 pg/mL <=1800.0 [facility] Potassium [Moles/Vol] 3.2 mmol/L Low 3.5-5.1 [facility] Sodium [Moles/Vol] 137 mmol/L 136-145 [facility] Urea nitrogen [Mass/Vol] 22.0 mg/dL High 7.0-18.0 [facility] Urea nitrogen/Creatinine [Mass ratio] 13.4 mg/mg [facility] No Panel Informationon 05-28 Digoxin Level 2.1 ng/mL High 0.9-2.0 [facility] Serum or plasma anion gap de terminationon 05-28-2024 Anion gap [Moles/Vol] 15.4 mmol/L [facility] Anion gap [Moles/Vol] Serum or plasma an ion gap determination [facility] Digoxin [Mass/volume] in Ser um or PlasmaOrdered By: Maxwell Medrano on 04-24-2024 Digoxin [Mass/Vol] 1.8 ng/mL Normal 0.9-2.0 [facility] Comment on above: Last dose: - Result Comment: Last dose: - PERFORMED BY: [facility] [address] [place] [address] PATHOLOGIST COOKER SULFATE VITOR ZARATE M.D. Performed By: #### T SH3, DIG ####[facility] [place] [address] [facility] Digoxin [Mass/Vol] Digoxin [Mass/volume ] in Serum or Plasma 0.9-2.0 [facility] Comment on above: Last dose: - ECG 12 Leadon 04-24-2024 Rhythm appears to be atrial fibrillation with slightly elevated [facility]: Thyrotropin [Units/volume] i n Serum or PlasmaOrdered By: Maxwell Medrano on 04-24-2024 TSH Qn 1.25 m[IU]/L Normal 0.45-5.33 [facility] Comment on above: Result Comment: PERF ORMED BY: [facility] [address] [place] [id number] PATHOLOGIST COOKER SULFATE VITOR ZARATE M.D. Performed By: #### T SH3, DIG ####[facility] [id number] [place] [id number] [facility] TSH Qn Thyrotropin [Units/v olume] in Serum or Plasma 0.45-5.33 [facility] ECG 12 lead (Clinic Performe d)on 04-17-2024 EKG performed today shows atrial flutter atypical at a rate of 83 bpm QRS duration 70 ms QT corrected 450 ms. Rhythm strip shows the same pattern. [facility] Work Phone: [facility] Work Phone: Laboratory - Chemistry and C hemistry - challengeon 04-08-2024 Bilirubin Ql (U) Negative [facility] Glucose (U) [Mass/Vol] Negative [facility] Ketones Ql (U) Negative [facility] pH (U) 5.0 [pH] [facility] Specific gravity (U) [Rel density] 1.015 [facility] Urobilinogen (U) [Mass/Vol] 0.2 mg/dL [facility] Laboratory - Specimen inform ationon 04-08-2024 Appearance (U) clear [facility] Color (U) yellow [facility] Laboratory - Urinalysison Leukocyte esterase Test strip Ql (U) Negative [facility] Nitrite Ql (U) Negative [facility] Protein Ql (U) ++ [facility] No Panel Informationon 04-08 Urine Occult Blood Negative [facility] ECG 12-LEADon 03-27-2024 ECG 12-LEAD Ventricular Rate 83 Atrial Rate 83 P-R Interval 200 QRS Duration 78 Q-T Interval 386 QTC Calculation(Bazett) 453 P Denio 132 R Denio 1 T Denio 185 QRS Count 13 Q Onset 224 [...] Asencio ([id number]) on 03/29/2024 12:51:06 PM Normal [facility] ECG 12-LEAD Ventricular Rate 84 Atrial Rate 267 QRS Duration 84 Q-T Interval 312 QTC Calculation(Bazett) 368 R Denio 6 T Denio 192 QRS Count 14 Q Onset 221 P Onset 124 P Offset 162 T Offset 377 QTC Fredericia 348 Diagnosis atypical atrial flutter Cannot rule out Anterior infarct , age undetermined ST & T wave abnormality, consider inferolateral ischemia Abnormal ECG Confirmed by Maxwell Medrano ([id number]) on 03/27/2024 9:02:15 AM Normal [facility] ECG 12-LEADon 03-26-2024 ECG 12-LEAD Ventricular Rate 83 Atrial Rate 83 P-R Interval 212 QRS Duration 82 Q-T Interval 370 QTC Calculation(Bazett) 434 P Denio 74 R Denio 1 T Denio 196 QRS Count 13 Q Onset 223 P Onset 117 P Offset 156 T Offset 408 QTC Fredericia 412 Diagnosis atypical atrial flutter ST & T wave abnormality, consider inferior ischemia ST & T wave abnormality, consider anterolateral ischemia Abnormal ECG Reconfirmed by Maxwell Medrano ([id number]) on 03/26/2024 5:02:48 PM Normal [facility] ECG 12-LEAD Ventricular Rate 82 Atrial Rate 82 P-R Interval 204 QRS Duration 78 Q-T Interval 356 QTC Calculation(Bazett) 415 P Denio 95 R Denio 9 T Denio 194 QRS Count 14 Q Onset 221 P Onset 119 P Offset 154 T Offset 399 QTC Fredericia 395 Diagnosis atypical atrial flutter ST & T wave abnormality, consider inferior ischemia ST & T wave abnormality, consider anterolateral ischemia Abnormal ECG Reconfirmed by Maxwell Medrano ([id number]) on 03/26/2024 5:02:17 PM Normal [facility] ECG 12-LEAD Ventricular Rate 82 Atrial Rate 82 P-R Interval 198 QRS Duration 84 Q-T Interval 388 QTC Calculation(Bazett) 453 P Denio 97 R Denio 5 T Denio 199 QRS Count 13 Q Onset 220 P Onset 121 P Offset 159 T Offset 414 QTC Fredericia 430 Diagnosis atypical atrial flutter ST & T wave abnormality, consider inferolateral ischemia Abnormal ECG Reconfirmed by Maxwell Medrano ([id number]) on 03/26/2024 5:01:47 PM Normal [facility] ECG 12-LEADon 03-25-2024 ECG 12-LEAD Ventricular Rate 70 Atrial Rate 70 P-R Interval 204 QRS Duration 76 Q-T Interval 384 QTC Calculation(Bazett) 414 R Denio -4 T Denio 191 QRS Count 12 Q Onset 226 T Offset 418 QTC Fredericia 404 Diagnosis Atrial-paced rhythm Inferior infarct , age undetermined Cannot rule out Anterior infarct , age undetermined ST & T wave abnormality, consider lateral ischemia Abnormal ECG When compared with ECG of 25-MAR-2024 08:52, No significant change was found Confirmed by Maxwell Medrano ([id number]) on 03/26/2024 5:00:38 PM Normal [facility] ECG 12-LEAD Ventricular Rate 70 Atrial Rate 69 P-R Interval 200 QRS Duration 76 Q-T Interval 400 QTC Calculation(Bazett) 432 R Denio 1 T Denio 189 QRS Count 11 Q Onset 220 T Offset 420 QTC Fredericia 421 Diagnosis Atrial-paced rhythm ST & T wave abnormality, consider inferior ischemia ST & T wave abnormality, consider anterolateral ischemia Abnormal ECG Confirmed by Maxwell Medrano ([id number]) on 03/25/2024 10:00:04 AM Normal [facility] ECG 12-LEAD Ventricular Rate 84 Atrial Rate 84 P-R Interval 206 QRS Duration 82 Q-T Interval 348 QTC Calculation(Bazett) 411 P Denio 90 R Denio -11 T Denio 181 QRS Count 13 Q Onset 225 P Onset 122 P Offset 165 T Offset 399 QTC Fredericia 389 Diagnosis Atypical atrial flutter Inferior infarct , age undetermined ST & T wave abnormality, consider anterolateral ischemia Abnormal ECG Confirmed by Maxwell Medrano ([id number]) on 03/25/2024 9:59:54 AM Normal [facility] ECG 12-LEAD Ventricular Rate 93 Atrial Rate 93 P-R Interval 90 QRS Duration 80 Q-T Interval 368 QTC Calculation(Bazett) 457 R Denio 13 T Denio 213 QRS Count 15 Q Onset 221 P Onset 176 P Offset 198 T Offset 405 QTC Fredericia 426 Diagnosis atypical atrial flutter ST & T wave abnormality, consider inferior ischemia ST & T wave abnormality, consider anterolateral ischemia Abnormal ECG Confirmed by Maxwell Medrano ([id number]) on 03/25/2024 9:59:32 AM Normal [facility] ECG 12-LEADon 03-24-2024 ECG 12-LEAD Ventricular Rate 87 Atrial Rate 267 QRS Duration 74 Q-T Interval 324 QTC Calculation(Bazett) 389 R Denio -7 T Denio 194 QRS Count 15 Q Onset 221 T Offset 383 QTC Fredericia 366 Diagnosis Atrial fibrillation with occasional ventricular-paced complexes Inferior infarct , age undetermined ST & T wave abnormality, consider lateral ischemia Abnormal ECG When compared with ECG of 23-MAR-2024 12:21, (unconfirmed) Vent. rate has increased BY 10 BPM Confirmed by Katie Asencio ([id number]) on 03/24/2024 5:29:54 PM Normal [facility] ECG 12-LEADon 03-23-2024 ECG 12-LEAD Ventricular Rate 77 Atrial Rate 394 QRS Duration 76 Q-T Interval 324 QTC Calculation(Bazett) 366 R Denio -2 T Denio 190 QRS Count 12 Q Onset 221 [...] James ([id number]) on 03/24/2024 10:23:54 AM Normal [facility] ECG 12-LEAD Ventricular Rate 83 Atrial Rate 394 QRS Duration 74 Q-T Interval 330 QTC Calculation(Bazett) 387 R Denio -7 T Denio 181 QRS Count 14 Q Onset 221 T Offset 386 QTC Fredericia 367 Diagnosis Atrial fibrillation with frequent ventricular-paced complexes Inferior infarct , age undetermined ST & T wave abnormality, consider anterolateral ischemia Abnormal ECG When compared with ECG of 22-MAR-2024 11:37, (unconfirmed) Electronic ventricular 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 Sinus rhythm Confirmed by Katie James ([id number]) on 03/24/2024 10:23:04 AM Normal [facility] ECG 12-LEADon 03-22-2024 ECG 12-LEAD Ventricular Rate 89 Atrial Rate 89 P-R Interval 194 QRS Duration 84 Q-T Interval 328 QTC Calculation(Bazett) 399 P Denio 99 R Denio -2 T Denio 187 QRS Count 15 Q Onset 222 P Onset 125 P Offset 163 T Offset 386 QTC Fredericia 373 Diagnosis Normal sinus rhythm ST & T wave abnormality, consider inferolateral ischemia Abnormal ECG No previous ECGs available Confirmed by Katie James ([id number]) on 03/24/2024 10:22:29 AM Normal [facility] Basophils Auto (Bld) [#/Vol] on 03-21-2024 Basophils (Bld) [#/Vol] 0.0 10 3/uL 0.0-0.1 [facility] Basophils/100 WBC Auto (Bld) on 03-21-2024 Basophils/100 WBC (Bld) 0.3 % 0.2-2.0 [facility] Eosinophils/100 WBC Auto (Bl d)on 03-21-2024 Eosinophils/100 WBC (Bld) 0.7 % Low 0.9-7.0 [facility] Erythrocyte distribution wid th Auto (RBC) [Ratio]on 03-21-2024 Erythrocyte distribution width (RBC) [Ratio] 15.0 % 11.0-15.0 [facility] Estimated glomerular filtrat ion rate (GFR) non- Americanon 03-21-2024 GFR/1.73 sq M.predicted among non-blacks MDRD (S/P/Bld) [Vol rate/Area] 45 mL/min/{1.73_m2} Low >=60 [facility] Hematocrit Auto (Bld) [Volum e fraction]on 03-21-2024 Hematocrit (Bld) [Volume fraction] 37.3 % 36.0-48.0 [facility] Hemoglobin [Mass/volume] in Bloodon 03-21-2024 Hemoglobin (Bld) [Mass/Vol] 12.6 g/dL 12.0-16.0 [facility] Laboratory - Chemistry and C hemistry - challengeon 03-21-2024 Calcium [Mass/Vol] 9.0 mg/dL 8.5-10.1 [facility] Chloride [Moles/Vol] 105 mmol/L 98-107 [facility] CO2 [Moles/Vol] 25.7 mmol/L 21.0-32.0 [facility] Creatinine [Mass/Vol] 1.16 mg/dL High 0.55-1.02 [facility] GFR/1.73 sq M.predicted MDRD (S/P/Bld) [Vol rate/Area] 54 mL/min/{1.73_m2} Low >=60 [facility] Glucose [Mass/Vol] 127 mg/dL High 74-106 [facility] Potassium [Moles/Vol] 3.9 mmol/L 3.5-5.1 [facility] Sodium [Moles/Vol] 139 mmol/L 136-145 [facility] Urea nitrogen [Mass/Vol] 26.0 mg/dL High 7.0-18.0 [facility] Urea nitrogen/Creatinine [Mass ratio] 22.4 mg/mg [facility] Laboratory - Hematology and Cell countson 03-21-2024 Immature granulocytes/100 WBC (Bld) 0.6 % High 0.0-0.5 [facility] Leukocytes [#/volume] correc anne marie for nucleated erythrocytes in Blood by Automated counon 03-21-2024 WBC corrected for nucl RBC Auto (Bld) [#/Vol] 6.8 10 3/uL 4.0-11.0 [facility] Lymphocytes Auto (Bld) [#/Vo l]on 03-21-2024 Lymphocytes (Bld) [#/Vol] 1.8 10 3/uL 1.2-3.8 [facility] Lymphocytes/100 WBC Auto (Bl d)on 03-21-2024 Lymphocytes/100 WBC (Bld) 26.9 % 20.5-60.0 [facility] MCH Auto (RBC) [Entitic mass ]on 03-21-2024 MCH (RBC) [Entitic mass] 33.2 pg 26.7-34.0 [facility] MCHC Auto (RBC) [Mass/Vol]on 03-21-2024 MCHC (RBC) [Mass/Vol] 33.8 g/dL 29.9-35.2 [facility] MCV Auto (RBC) [Entitic vol] on 03-21-2024 MCV (RBC) [Entitic vol] 98.2 fL 81.0-99.0 [facility] Monocytes Auto (Bld) [#/Vol] on 03-21-2024 Monocytes (Bld) [#/Vol] 0.5 10 3/uL 0.3-0.8 [facility] Monocytes/100 WBC Auto (Bld) on 03-21-2024 Monocytes/100 WBC (Bld) 6.9 % 1.7-12.0 [facility] Neutrophils Auto (Bld) [#/Vo l]on 03-21-2024 Neutrophils (Bld) [#/Vol] 4.4 10 3/uL 1.4-6.5 [facility] Neutrophils/100 WBC Auto (Bl d)on 03-21-2024 Neutrophils/100 WBC (Bld) 64.6 % 43.0-75.0 [facility] No Panel Informationon 03-21 Troponin I High Sensitivity 96.6 pg/mL High 4.0-51.3 [facility] Comment on above: RESULTS CALLED TO ANTONIA [...] Eosinophils # (Auto) 0.1 10 3/uL 0.0-0.7 [facility] Immature Granulocyte # (Auto) 0.04 10 3/uL High 0.00-0.03 [facility] Platelet mean volume Auto (B ld) [Entitic vol]on 03-21-2024 Platelet mean volume (Bld) [Entitic vol] 10.0 fL 9.5-13.5 [facility] Platelets Auto (Bld) [#/Vol] on 03-21-2024 Platelets (Bld) [#/Vol] 222 10 3/uL 150-450 [facility] RBC Auto (Bld) [#/Vol]on RBC (Bld) [#/Vol] 3.80 10 6/uL Low 4.20-5.40 [facility] Serum or plasma anion gap de terminationon 03-21-2024 Anion gap [Moles/Vol] 12.2 mmol/L [facility] ECG 12 Leadon 02-28-2024 [facility] Work Phone: EKG performed today shows atrial flutter atypical at a rate of 95 bpm QRS duration 76 ms QT corrected 402 ms. Rhythm strip shows the same pattern. [facility] Work Phone: [facility] Work Phone: ECG 12 Leadon 02-25-2024 Atrial flutter with 221 AV block CPACS [facility] Work Phone: Basophils Auto (Bld) [#/Vol] on 02-08-2024 Basophils (Bld) [#/Vol] 0.0 10 3/uL 0.0-0.1 [facility] Basophils/100 WBC Auto (Bld) on 02-08-2024 Basophils/100 WBC (Bld) 0.1 % Low 0.2-2.0 [facility] Eosinophils/100 WBC Auto (Bl d)on 02-08-2024 Eosinophils/100 WBC (Bld) 0.2 % Low 0.9-7.0 [facility] Erythrocyte distribution wid th Auto (RBC) [Ratio]on 02-08-2024 Erythrocyte distribution width (RBC) [Ratio] 13.9 % 11.0-15.0 [facility] Estimated glomerular filtrat ion rate (GFR) non- Americanon 02-08-2024 GFR/1.73 sq M.predicted among non-blacks MDRD (S/P/Bld) [Vol rate/Area] mL/min/{1.73_m2} >=60 [facility] Globulin Calc (S) [Mass/Vol] on 02-08-2024 Globulin (S) [Mass/Vol] 3.0 g/dL [facility] Hematocrit Auto (Bld) [Volum e fraction]on 02-08-2024 Hematocrit (Bld) [Volume fraction] 40.7 % 36.0-48.0 [facility] Hemoglobin [Mass/volume] in Bloodon 02-08-2024 Hemoglobin (Bld) [Mass/Vol] 13.6 g/dL 12.0-16.0 [facility] Laboratory - Chemistry and C hemistry - challengeon 02-08-2024 Albumin [Mass/Vol] 2.8 g/dL Low 3.4-5.0 [facility] ALP [Catalytic activity/Vol] 85 U/L 46-116 [facility] ALT [Catalytic activity/Vol] 32 U/L 14-59 [facility] AST [Catalytic activity/Vol] 20 U/L 15-37 [facility] Bilirubin [Mass/Vol] 0.7 mg/dL 0.2-1.0 [facility] Calcium [Mass/Vol] 9.0 mg/dL 8.5-10.1 [facility] Chloride [Moles/Vol] 103 mmol/L 98-107 [facility] CO2 [Moles/Vol] 27.1 mmol/L 21.0-32.0 [facility] Creatinine [Mass/Vol] 0.82 mg/dL 0.55-1.02 [facility] GFR/1.73 sq M.predicted MDRD (S/P/Bld) [Vol rate/Area] mL/min/{1.73_m2} >=60 [facility] Glucose [Mass/Vol] 122 mg/dL High 74-106 [facility] Potassium [Moles/Vol] 4.6 mmol/L 3.5-5.1 [facility] Protein [Mass/Vol] 5.8 g/dL Low 6.4-8.2 [facility] Sodium [Moles/Vol] 135 mmol/L Low 136-145 [facility] Urea nitrogen [Mass/Vol] 30.0 mg/dL High 7.0-18.0 [facility] Urea nitrogen/Creatinine [Mass ratio] 36.6 mg/mg [facility] Laboratory - Hematology and Cell countson 02-08-2024 Immature granulocytes/100 WBC (Bld) 1.6 % High 0.0-0.5 [facility] Leukocytes [#/volume] correc anne marie for nucleated erythrocytes in Blood by Automated counon 02-08-2024 WBC corrected for nucl RBC Auto (Bld) [#/Vol] 12.9 10 3/uL High 4.0-11.0 [facility] Lymphocytes Auto (Bld) [#/Vo l]on 02-08-2024 Lymphocytes (Bld) [#/Vol] 0.9 10 3/uL Low 1.2-3.8 [facility] Lymphocytes/100 WBC Auto (Bl d)on 02-08-2024 Lymphocytes/100 WBC (Bld) 6.7 % Low 20.5-60.0 [facility] MCH Auto (RBC) [Entitic mass ]on 02-08-2024 MCH (RBC) [Entitic mass] 31.1 pg 26.7-34.0 [facility] MCHC Auto (RBC) [Mass/Vol]on 02-08-2024 MCHC (RBC) [Mass/Vol] 33.4 g/dL 29.9-35.2 [facility] MCV Auto (RBC) [Entitic vol] on 02-08-2024 MCV (RBC) [Entitic vol] 93.1 fL 81.0-99.0 [facility] Monocytes Auto (Bld) [#/Vol] on 02-08-2024 Monocytes (Bld) [#/Vol] 0.6 10 3/uL 0.3-0.8 [facility] Monocytes/100 WBC Auto (Bld) on 02-08-2024 Monocytes/100 WBC (Bld) 4.6 % 1.7-12.0 [facility] Neutrophils Auto (Bld) [#/Vo l]on 02-08-2024 Neutrophils (Bld) [#/Vol] 11.2 10 3/uL High 1.4-6.5 [facility] Neutrophils/100 WBC Auto (Bl d)on 02-08-2024 Neutrophils/100 WBC (Bld) 86.8 % High 43.0-75.0 [facility] No Panel Informationon 02-07 Eosinophils # (Auto) 0.0 10 3/uL 0.0-0.7 [facility] Immature Granulocyte # (Auto) 0.21 10 3/uL High 0.00-0.03 [facility] Platelet mean volume Auto (B ld) [Entitic vol]on 02-08-2024 Platelet mean volume (Bld) [Entitic vol] 10.4 fL 9.5-13.5 [facility] Platelets Auto (Bld) [#/Vol] on 02-08-2024 Platelets (Bld) [#/Vol] 204 10 3/uL 150-450 [facility] RBC Auto (Bld) [#/Vol]on RBC (Bld) [#/Vol] 4.37 10 6/uL 4.20-5.40 [facility] Serum or plasma albumin/glob ulin mass ratioon 02-08-2024 Albumin/Globulin [Mass ratio] 0.9 {ratio} [facility] Serum or plasma anion gap de terminationon 02-08-2024 Anion gap [Moles/Vol] 9.5 mmol/L [facility] Basophils Auto (Bld) [#/Vol] on 02-07-2024 Basophils (Bld) [#/Vol] 0.0 10 3/uL 0.0-0.1 [facility] Basophils/100 WBC Auto (Bld) on 02-07-2024 Basophils/100 WBC (Bld) 0.1 % Low 0.2-2.0 [facility] Eosinophils/100 WBC Auto (Bl d)on 02-07-2024 Eosinophils/100 WBC (Bld) 0.2 % Low 0.9-7.0 [facility] Erythrocyte distribution wid th Auto (RBC) [Ratio]on 02-07-2024 Erythrocyte distribution width (RBC) [Ratio] 14.1 % 11.0-15.0 [facility] Estimated glomerular filtrat ion rate (GFR) non- Americanon 02-07-2024 GFR/1.73 sq M.predicted among non-blacks MDRD (S/P/Bld) [Vol rate/Area] 51 mL/min/{1.73_m2} Low >=60 [facility] Globulin Calc (S) [Mass/Vol] on 02-07-2024 Globulin (S) [Mass/Vol] 3.2 g/dL [facility] Hematocrit Auto (Bld) [Volum e fraction]on 02-07-2024 Hematocrit (Bld) [Volume fraction] 46.3 % 36.0-48.0 [facility] Hemoglobin [Mass/volume] in Bloodon 02-07-2024 Hemoglobin (Bld) [Mass/Vol] 15.3 g/dL 12.0-16.0 [facility] Laboratory - Chemistry and C hemistry - challengeon 02-07-2024 Bilirubin Ql (U) Negative NEGATIVE [facility] Glucose (U) [Mass/Vol] Negative NEGATIVE [facility] Ketones Ql (U) Negative NEGATIVE [facility] pH (U) 6.0 [pH] 5.0-9.0 [facility] Specific gravity (U) [Rel density] >=1.030 Abnormal 1.005-1.02 5 [facility] Urobilinogen Qn (U) 1.0 {Sherrell'U}/dL 0.2-1.0 [facility] Albumin [Mass/Vol] 3.1 g/dL Low 3.4-5.0 [facility] ALP [Catalytic activity/Vol] 107 U/L 46-116 [facility] ALT [Catalytic activity/Vol] 38 U/L 14-59 [facility] AST [Catalytic activity/Vol] 19 U/L 15-37 [facility] Bilirubin [Mass/Vol] 0.7 mg/dL 0.2-1.0 [facility] Bilirubin.direct [Mass/Vol] 0.2 mg/dL 0.0-0.2 [facility] Lipase [Catalytic activity/Vol] 66.0 U/L 16.0-77.0 [facility] Natriuretic peptide B (Bld) [Mass/Vol] 1679.0 pg/mL <=1800.0 [facility] Protein [Mass/Vol] 6.3 g/dL Low 6.4-8.2 [facility] Calcium [Mass/Vol] 9.3 mg/dL 8.5-10.1 [facility] Chloride [Moles/Vol] 104 mmol/L 98-107 [facility] CO2 [Moles/Vol] 25.4 mmol/L 21.0-32.0 [facility] Creatinine [Mass/Vol] 1.03 mg/dL High 0.55-1.02 [facility] GFR/1.73 sq M.predicted MDRD (S/P/Bld) [Vol rate/Area] mL/min/{1.73_m2} >=60 [facility] Glucose [Mass/Vol] 137 mg/dL High 74-106 [facility] Potassium [Moles/Vol] 4.6 mmol/L 3.5-5.1 [facility] Sodium [Moles/Vol] 137 mmol/L 136-145 [facility] Urea nitrogen [Mass/Vol] 35.0 mg/dL High 7.0-18.0 [facility] Urea nitrogen/Creatinine [Mass ratio] 34.0 mg/mg [facility] Laboratory - Hematology and Cell countson 02-07-2024 Immature granulocytes/100 WBC (Bld) 1.6 % High 0.0-0.5 [facility] Laboratory - Specimen inform ationon 02-07-2024 Appearance (U) CLEAR CLEAR [facility] Color (U) YELLOW YELLOW [facility] Laboratory - Urinalysison Leukocyte esterase Test strip Ql (U) Negative NEGATIVE [facility] Nitrite Ql (U) Negative NEGATIVE [facility] Protein Ql (U) TRACE mg/dL NEG/TRACE [facility] Leukocytes [#/volume] correc anne marie for nucleated erythrocytes in Blood by Automated counon 02-07-2024 WBC corrected for nucl RBC Auto (Bld) [#/Vol] 18.4 10 3/uL High 4.0-11.0 [facility] Lymphocytes Auto (Bld) [#/Vo l]on 02-07-2024 Lymphocytes (Bld) [#/Vol] 1.0 10 3/uL Low 1.2-3.8 [facility] Lymphocytes/100 WBC Auto (Bl d)on 02-07-2024 Lymphocytes/100 WBC (Bld) 5.4 % Low 20.5-60.0 [facility] MCH Auto (RBC) [Entitic mass ]on 02-07-2024 MCH (RBC) [Entitic mass] 31.0 pg 26.7-34.0 [facility] MCHC Auto (RBC) [Mass/Vol]on 02-07-2024 MCHC (RBC) [Mass/Vol] 33.0 g/dL 29.9-35.2 [facility] MCV Auto (RBC) [Entitic vol] on 02-07-2024 MCV (RBC) [Entitic vol] 93.7 fL 81.0-99.0 [facility] Monocytes Auto (Bld) [#/Vol] on 02-07-2024 Monocytes (Bld) [#/Vol] 1.0 10 3/uL High 0.3-0.8 [facility] Monocytes/100 WBC Auto (Bld) on 02-07-2024 Monocytes/100 WBC (Bld) 5.4 % 1.7-12.0 [facility] Neutrophils Auto (Bld) [#/Vo l]on 02-07-2024 Neutrophils (Bld) [#/Vol] 16.1 10 3/uL High 1.4-6.5 [facility] Neutrophils/100 WBC Auto (Bl d)on 02-07-2024 Neutrophils/100 WBC (Bld) 87.3 % High 43.0-75.0 [facility] No Panel Informationon 02-06 Urine Microscopic Review NO [facility] Urine Occult Blood Negative NEGATIVE [facility] Troponin I High Sensitivity 50.2 pg/mL 4.0-51.3 [facility] Comment on above: CUT-OFF POINTS HAVE BEEN [...] Eosinophils # (Auto) 0.0 10 3/uL 0.0-0.7 [facility] Immature Granulocyte # (Auto) 0.29 10 3/uL High 0.00-0.03 [facility] Platelet mean volume Auto (B ld) [Entitic vol]on 02-07-2024 Platelet mean volume (Bld) [Entitic vol] 10.1 fL 9.5-13.5 [facility] Platelets Auto (Bld) [#/Vol] on 02-07-2024 Platelets (Bld) [#/Vol] 260 10 3/uL 150-450 [facility] RBC Auto (Bld) [#/Vol]on RBC (Bld) [#/Vol] 4.94 10 6/uL 4.20-5.40 [facility] Serum or plasma albumin/glob ulin mass ratioon 02-07-2024 Albumin/Globulin [Mass ratio] 1.0 {ratio} [facility] Serum or plasma anion gap de terminationon 02-07-2024 Anion gap [Moles/Vol] 12.2 mmol/L [facility] ECG 12 Leadon 01-22-2024 Normal sinus rhythm with normal QTc interval [facility] Work Phone: Magnesium [Mass/volume] in S vaughn or PlasmaOrdered By: Izzy Capps on 01-19-2024 Magnesium [Mass/Vol] 1.9 mg/dL 1.9-2.7 [facility] Activated partial thrombopla stin time (aPTT) in platelet poor plasma by coagulation aOrdered By: Vic Mendez on 01-18-2024 aPTT Coag (PPP) [Time] 31.3 s 25.1-36.5 [facility] Comment on above: A hematocrit value g reater than 55% may lead to inaccurate results in coagulation testing. Patients having hematocrit values >55% require a special collection tube for coagulation studies. Please contact the laboratory at [phone] for redraw instructions. Alanine aminotransferase [En zymatic activity/volume] in Serum or PlasmaOrdered By: Vic Mendez on 01-18-2024 ALT [Catalytic activity/Vol] 29 U/L 7-52 [facility] Albumin [Mass/volume] in Ser um or Plasma by Bromocresol green (BCG) dye binding methoOrdered By: Vic Mendez on 01-18-2024 Albumin BCG dye [Mass/Vol] 3.7 g/dL 3.5-5.7 [facility] Alkaline phosphatase [Enzyma tic activity/volume] in Serum or PlasmaOrdered By: Vic Mendez on 01-18-2024 ALP [Catalytic activity/Vol] 63 U/L 34-104 [facility] Aspartate aminotransferase [ Enzymatic activity/volume] in Serum or PlasmaOrdered By: Vic Mendez on 01-18-2024 AST [Catalytic activity/Vol] 17 U/L 13-39 [facility] Basophils Auto (Bld) [#/Vol] Ordered By: Vic Mendez on 01-18-2024 Basophils (Bld) [#/Vol] 0.1 10*3/uL 0.0-0.2 [facility] Basophils/100 WBC Auto (Bld) Ordered By: Vic Mendez on 01-18-2024 Basophils/100 WBC (Bld) 0.5 % . [facility] Bilirubin.total [Mass/volume ] in Serum or PlasmaOrdered By: Vic Mendez on 01-18-2024 Bilirubin [Mass/Vol] 0.9 mg/dL 0.3-1.0 [facility] Calcium [Mass/volume] in Ser um or PlasmaOrdered By: Vic Mendez on 01-18-2024 Calcium [Mass/Vol] 9.2 mg/dL 8.6-10.3 [facility] Carbon dioxide, total [Moles /volume] in Serum or PlasmaOrdered By: Vic Mendez on 01-18-2024 CO2 [Moles/Vol] 23.4 mmol/L 21.0-31.0 [facility] Chloride [Moles/volume] in S vaughn or PlasmaOrdered By: Vic Mendez on 01-18-2024 Chloride [Moles/Vol] 108 mmol/L High 98-107 [facility] Creatine kinase [Enzymatic a ctivity/volume] in Serum or PlasmaOrdered By: Vic Mendez 01-18-2024 CK [Catalytic activity/Vol] 31 U/L 30-223 [facility] Creatinine [Mass/volume] in Serum or PlasmaOrdered By: Vic Mendez on 01-18-2024 Creatinine [Mass/Vol] 0.96 mg/dL 0.60-1.20 [facility] Eosinophils Auto (Bld) [#/Vo l]Ordered By: Vic Mendez on 01-18-2024 Eosinophils (Bld) [#/Vol] 0.1 10*3/uL 0.0-0.45 [facility] Eosinophils/100 WBC Auto (Bl d)Ordered By: Vic Mendez on 01-18-2024 Eosinophils/100 WBC (Bld) 1.2 % . [facility] Erythrocyte distribution wid th Auto (RBC) [Ratio]Ordered By: Vic Mendez on 01-18-2024 Erythrocyte distribution width (RBC) [Ratio] 14.1 % 11.9-15.3 [facility] Globulin Calc (S) [Mass/Vol] Ordered By: Vic Mendez on 01-18-2024 Globulin (S) [Mass/Vol] 2.3 g/dL [facility] Glucose [Mass/volume] in Ser um or PlasmaOrdered By: Vic Mendez on 01-18-2024 Glucose [Mass/Vol] 102 mg/dL High 70-100 [facility] Comment on above: ADA recommended refe rence rangeRandom Glucose Reference Range is dependent on time and content of last meal. Glucose of more than 200 mg/dL in a nonstressed, ambulatory subject supports the diagnosis of Diabetes Mellitus. Hematocrit Auto (Bld) [Volum e fraction]Ordered By: Vic Mendez on 01-18-2024 Hematocrit (Bld) [Volume fraction] 45.9 % 34.0-46.4 [facility] Hemoglobin [Mass/volume] in BloodOrdered By: Vic Mendez on 01-18-2024 Hemoglobin (Bld) [Mass/Vol] 15.5 g/dL High 11.8-15.4 [facility] INR in Platelet poor plasma by Coagulation assayOrdered By: Vic Mendez on 01-18-2024 INR Coag (PPP) [Relative time] 1.5 {INR} [facility] Comment on above: INR Therapeutic Rang e [...] RBC Auto (Bld) [#/Vol] 10.4 10*3/uL 3.8-11.6 [facility] Lymphocytes Auto (Bld) [#/Vo l]Ordered By: Vic Mendez on 01-18-2024 Lymphocytes (Bld) [#/Vol] 1.0 10*3/uL 1.00-4.8 [facility] Lymphocytes/100 WBC Auto (Bl d)Ordered By: Vic Mendez on 01-18-2024 Lymphocytes/100 WBC (Bld) 9.2 % . [facility] MCH Auto (RBC) [Entitic mass ]Ordered By: Vic Mendez on 01-18-2024 MCH (RBC) [Entitic mass] 31.2 pg 24.7-34.3 [facility] MCHC Auto (RBC) [Mass/Vol]Or dered By: Vic Mendez on 01-18-2024 MCHC (RBC) [Mass/Vol] 33.7 g/dL 32.0-35.0 [facility] MCV Auto (RBC) [Entitic vol] Ordered By: Vic Mendez on 01-18-2024 MCV (RBC) [Entitic vol] 92.6 fL 80-100 [facility] Magnesium [Mass/volume] in S vaughn or PlasmaOrdered By: Vic Mendez on 01-18-2024 Magnesium [Mass/Vol] 1.9 mg/dL 1.9-2.7 [facility] Monocyte distribution width [Entitic volume] in Blood by AutomatedOrdered By: Vic Mendez on 01-18-2024 Monocyte distribution width Auto (Bld) [Entitic vol] 18.06 % 0.00-20.00 [facility] Monocytes Auto (Bld) [#/Vol] Ordered By: Vic Mendez on 01-18-2024 Monocytes (Bld) [#/Vol] 0.8 10*3/uL 0.0-0.8 [facility] Monocytes/100 WBC Auto (Bld) Ordered By: Vic Mendez on 01-18-2024 Monocytes/100 WBC (Bld) 7.6 % . [facility] Neutrophils Auto (Bld) [#/Vo l]Ordered By: Vic Mendez on 01-18-2024 Neutrophils (Bld) [#/Vol] 8.5 10*3/uL High 1.8-7.7 [facility] Neutrophils/100 WBC Auto (Bl d)Ordered By: Vic Mendez on 01-18-2024 Neutrophils/100 WBC (Bld) 81.5 % . [facility] No Panel InformationOrdered By: Vic Mendez on 01-18-2024 Estimated GFR (CKD-EPI) 59.440 mL/Min [facility] Creatinine Clearance (Chem 40.09 [facility] Nucleated erythrocytes [Pres ence] in Blood by Automated countOrdered By: Vic Mendez on 01-18-2024 Nucleated RBC Auto Ql (Bld) 0.1 /100{WBC} 0-0.5 [facility] Platelet mean volume Auto (B ld) [Entitic vol]Ordered By: Vic Mendez on 01-18-2024 Platelet mean volume (Bld) [Entitic vol] 8.5 fL 6.3-10.7 [facility] Platelets Auto (Bld) [#/Vol] Ordered By: Vic Mendez on 01-18-2024 Platelets (Bld) [#/Vol] 205 10*3/uL 150-450 [facility] Potassium [Moles/volume] in Serum or PlasmaOrdered By: Vic Mendez on 01-18-2024 Potassium [Moles/Vol] 4.1 mmol/L 3.5-5.1 [facility] Protein [Mass/volume] in Ser um or PlasmaOrdered By: Vic Mendez on 01-18-2024 Protein [Mass/Vol] 6.0 g/dL Low 6.4-8.9 [facility] Prothrombin time (PT)Ordered By: Vic Mendez on 01-18-2024 PT Coag (PPP) [Time] 16.8 s High 9.0-12.9 [facility] Comment on above: A hematocrit value g reater than 55% may lead to inaccurate results in coagulation testing. Patients having hematocrit values >55% require a special collection tube for coagulation studies. Please contact the laboratory at [phone] for redraw instructions. RBC Auto (Bld) [#/Vol]Ordere d By: Vic Mnedez on 01-18-2024 RBC (Bld) [#/Vol] 4.96 10*6/uL 3.60-5.00 [facility] Serum or plasma albumin/glob ulin mass ratioOrdered By: Vic Mendez on 01-18-2024 Albumin/Globulin [Mass ratio] 1.6 {ratio} [facility] Serum or plasma anion gap de terminationOrdered By: Vic Mendez on 01-18-2024 Anion gap [Moles/Vol] 11.7 mmol/L 6.0-15.0 [facility] Sodium [Moles/volume] in Ser um or PlasmaOrdered By: Vic Mendez on 01-18-2024 Sodium [Moles/Vol] 139 mmol/L 136-145 [facility] Thyrotropin [Units/volume] i n Serum or PlasmaOrdered By: Izzy Capps on 01-18-2024 TSH Qn 0.83 m[IU]/L 0.45-5.33 [facility] Troponin I.cardiac [Mass/vol ume] in Serum or Plasma by Detection limit <= 0.01 ng/Ordered By: Vic Mendez on 01-18-2024 Troponin I.cardiac DL <= 0.01 ng/mL [Mass/Vol] 14.7 pg/mL 0.0-15.0 [facility] Urea nitrogen [Mass/volume] in Serum or PlasmaOrdered By: Vic Mendez on 01-18-2024 Urea nitrogen [Mass/Vol] 29 mg/dL High 7-25 [facility] WBC Auto (Bld) [#/Vol]Ordere d By: Vic Mendez on 01-18-2024 WBC (Bld) [#/Vol] 10.4 10*3/uL 3.8-11.6 [facility] ECG 12 Leadon 09-19-2023 Rhythm appeared to b e atrial flutter with 2/ [address] with nons[address] [facility] Work Phone: US Heart Transthoracicon Aortic Valve Area by Continuity of Peak Velocity 2.36 [facility] Work Phone: Aortic Valve Area by Continuity of VTI 2.33 [facility] Work Phone: AV mn grad 2.0 [facility] Work Phone: [phone] AV pk grad 3.5 [facility] Work Phone: [phone] AV pk douglas 0.94 [facility] Work Phone: [phone] LV A4C EF 63.6 [facility] Work Phone: [phone] LVIDd 3.20 [facility] Work Phone: [phone] LVOT diam 1.90 [facility] Work Phone: [phone] MV avg E/e' ratio 20.20 [facility] Work Phone: [phone] RVSP 32.8 [facility] Work Phone: [address], [place] [address] TRANSTHORACIC ECHOCARDIOGRAM REPORT Patient Name: AUSTIN Arriaga Physician: [id number] Mac MD Study Date: 08/21/2023 Ordering Provider: Zurdo MAC MRN/PID: [id number] Fellow: Nurse: Date of /Age: 1 1940 / 82 years [employer]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: Iqra Pham RDCS, RVT Gender: F Additional Staff: Height: 149.86 cm Admit Date: Weight: 74.84 kg Admission Status: BSA: 1.70 m2 Department Location: [facility] Blood Pressure: 116 /64 mmHg Study Type: TRANSTHORACIC ECHO (TTE) COMPLETE Diagnosis/ICD: Chronic diastolic (congestive) heart failure (CHF)-I50.32; Essential (primary) hypertension-I10; Dyspnea, unspecified-R06.00 Indication: Atrial Fibrillation, Sick Sinus Syndrome, Hyerlipidemia, Pacemaker, Overweight, CKD-Stage III CPT Codes: Echo Complete w Full Doppler-[id number] Study Detail: The following Echo studies were [...] not included)... 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9m/s) PV Max P.8 mmHg [id number] Debbie Mac MD Electronically signed on 08/22/2023 at 12:31:20 PM Final [facility] Work Phone: [facility] Work Phone: ECG 12 Leadon 05-31-2023 Paced atrial rhythm with normal QTc interval [facility] Work Phone: Alkaline phosphatase [Enzyma tic activity/volume] in Serum or PlasmaOrdered By: Wilbur Watson on 03-05-2023 ALP [Catalytic activity/Vol] 82 U/L 34-104 [facility] Amylase [Enzymatic activity/ volume] in Serum or PlasmaOrdered By: Wilbur Watson on 03-05-2023 Amylase [Catalytic activity/Vol] 32 U/L 29-103 [facility] Aspartate aminotransferase [ Enzymatic activity/volume] in Serum or PlasmaOrdered By: Wilbur Watson on 03-05-2023 AST [Catalytic activity/Vol] 19 U/L 13-39 [facility] Bilirubin.direct [Mass/volum e] in Serum or PlasmaOrdered By: Wilbur Watson on 03-05-2023 Bilirubin.direct [Mass/Vol] 0.20 mg/dL 0.03-0.18 [facility] Bilirubin.total [Mass/volume ] in Serum or PlasmaOrdered By: Wilbur Watson on 03-05-2023 Bilirubin [Mass/Vol] 0.7 mg/dL 0.3-1.0 [facility] Lipase [Enzymatic activity/v olume] in Serum or PlasmaOrdered By: Wilbur Watson on 03-05-2023 Lipase [Catalytic activity/Vol] 31.0 U/L 11.0-82.0 [facility] Serum or plasma non-glucuron idated bilirubin measurement (mass/volume)Ordered By: Wilbur Watson on 03-05-2023 Bilirubin.indirect [Mass/Vol] 0.5 mg/dL [facility] Basophils Auto (Bld) [#/Vol] Ordered By: Wilbur Watson on 02-26-2023 Basophils (Bld) [#/Vol] 0.0 10*3/uL 0.0-0.2 [facility] Basophils/100 WBC Auto (Bld) Ordered By: Wilbur Watson on 02-26-2023 Basophils/100 WBC (Bld) 0.5 % . [facility] Calcium [Mass/volume] in Ser um or PlasmaOrdered By: Wilbur Watson on 02-26-2023 Calcium [Mass/Vol] 9.0 mg/dL 8.6-10.3 [facility] Carbon dioxide, total [Moles /volume] in Serum or PlasmaOrdered By: Wilbur Watson on 02-26-2023 CO2 [Moles/Vol] 24.7 mmol/L 21.0-31.0 [facility] Chloride [Moles/volume] in S vaughn or PlasmaOrdered By: Wilbur Watson on 02-26-2023 Chloride [Moles/Vol] 108 mmol/L 98-107 [facility] Creatinine [Mass/volume] in Serum or PlasmaOrdered By: Wilbur Watson on 02-26-2023 Creatinine [Mass/Vol] 1.03 mg/dL 0.60-1.20 [facility] Eosinophils Auto (Bld) [#/Vo l]Ordered By: Wilbur Watson on 02-26-2023 Eosinophils (Bld) [#/Vol] 0.2 10*3/uL 0.0-0.45 [facility] Eosinophils/100 WBC Auto (Bl d)Ordered By: Wilbur Watson on 02-26-2023 Eosinophils/100 WBC (Bld) 2.2 % . [facility] Erythrocyte distribution wid th Auto (RBC) [Ratio]Ordered By: Wilbur Watson on 02-26-2023 Erythrocyte distribution width (RBC) [Ratio] 13.8 % 11.9-15.3 [facility] Glucose [Mass/volume] in Ser um or PlasmaOrdered By: Wilbur Watson on 02-26-2023 Glucose [Mass/Vol] 81 mg/dL 70-100 [facility] Comment on above: ADA recommended refe rence rangeRandom Glucose Reference Range is dependent on time and content of last meal. Glucose of more than 200 mg/dL in a nonstressed, ambulatory subject supports the diagnosis of Diabetes Mellitus. Hematocrit Auto (Bld) [Volum e fraction]Ordered By: Wilbur Watson on 02-26-2023 Hematocrit (Bld) [Volume fraction] 44.1 % 34.0-46.4 [facility] Hemoglobin [Mass/volume] in BloodOrdered By: Wilbur Watson on 02-26-2023 Hemoglobin (Bld) [Mass/Vol] 14.9 g/dL 11.8-15.4 [facility] Leukocytes [#/volume] correc anne marie for nucleated erythrocytes in Blood by Automated counOrdered By: Wilbur Watson on 02-26-2023 WBC corrected for nucl RBC Auto (Bld) [#/Vol] 8.3 10*3/uL 3.8-11.6 [facility] Lymphocytes Auto (Bld) [#/Vo l]Ordered By: Wilbur Watson on 02-26-2023 Lymphocytes (Bld) [#/Vol] 0.9 10*3/uL 1.00-4.8 [facility] Lymphocytes/100 WBC Auto (Bl d)Ordered By: Wilbur Watson on 02-26-2023 Lymphocytes/100 WBC (Bld) 10.3 % . [facility] MCH Auto (RBC) [Entitic mass ]Ordered By: Wilbur Watson on 02-26-2023 MCH (RBC) [Entitic mass] 30.5 pg 24.7-34.3 [facility] MCHC Auto (RBC) [Mass/Vol]Or dered By: Wilbur Watson on 02-26-2023 MCHC (RBC) [Mass/Vol] 33.8 g/dL 32.0-35.0 [facility] MCV Auto (RBC) [Entitic vol] Ordered By: Wilbur Watson on 02-26-2023 MCV (RBC) [Entitic vol] 90.4 fL 80-100 [facility] Monocytes Auto (Bld) [#/Vol] Ordered By: Wilbur Watson on 02-26-2023 Monocytes (Bld) [#/Vol] 0.6 10*3/uL 0.0-0.8 [facility] Monocytes/100 WBC Auto (Bld) Ordered By: Wilbur Watson on 02-26-2023 Monocytes/100 WBC (Bld) 7.1 % . [facility] Neutrophils Auto (Bld) [#/Vo l]Ordered By: Wilbur Watson on 02-26-2023 Neutrophils (Bld) [#/Vol] 6.6 10*3/uL 1.8-7.7 [facility] Neutrophils/100 WBC Auto (Bl d)Ordered By: Wilbur Watson on 02-26-2023 Neutrophils/100 WBC (Bld) 79.9 % . [facility] No Panel InformationOrdered By: Wilbur Watson on 02-26-2023 Estimated GFR (CKD-EPI) 54.967 mL/Min [facility] Creatinine Clearance (Chem N/A [facility] Nucleated erythrocytes [Pres ence] in Blood by Automated countOrdered By: Wilbur Watson on 02-26-2023 Nucleated RBC Auto Ql (Bld) 0.0 /100{WBC} 0-0.5 [facility] Platelet mean volume Auto (B ld) [Entitic vol]Ordered By: Wilbur Watson on 02-26-2023 Platelet mean volume (Bld) [Entitic vol] 8.9 fL 6.3-10.7 [facility] Platelets Auto (Bld) [#/Vol] Ordered By: Wilbur Watson on 02-26-2023 Platelets (Bld) [#/Vol] 194 10*3/uL 150-450 [facility] Potassium [Moles/volume] in Serum or PlasmaOrdered By: Wilbur Watson on 02-26-2023 Potassium [Moles/Vol] 4.3 mmol/L 3.5-5.1 [facility] RBC Auto (Bld) [#/Vol]Ordere d By: Wilbur Watson on 02-26-2023 RBC (Bld) [#/Vol] 4.88 10*6/uL 3.60-5.00 [facility] Serum or plasma anion gap de terminationOrdered By: Wilbur Watson on 02-26-2023 Anion gap [Moles/Vol] 12.6 mmol/L 6.0-15.0 [facility] Sodium [Moles/volume] in Ser um or PlasmaOrdered By: Wilbur Watson on 02-26-2023 Sodium [Moles/Vol] 141 mmol/L 136-145 [facility] Urea nitrogen [Mass/volume] in Serum or PlasmaOrdered By: Wilbur Watson on 02-26-2023 Urea nitrogen [Mass/Vol] 32 mg/dL 7-25 [facility] WBC Auto (Bld) [#/Vol]Ordere d By: Wilbur Watson on 02-26-2023 WBC (Bld) [#/Vol] 8.3 10*3/uL 3.8-11.6 [facility] Falls Screening (Age 18+)on 01-25-2023 Fall risk assessment a) No falls within the last year [place] [facility] Work Phone: Tobacco use status CPHS b) No [facility] Work Phone: Office Visit (Cardiology)on 01-25-2023 Follow-up [...] TABLET B (more content not included)... Normal [facility] Activated partial thrombopla stin time (aPTT) in platelet poor plasma by coagulation aOrdered By: Debbie Mac on 01-09-2023 aPTT Coag (PPP) [Time] 19.5 s 25.1-36.5 [facility] Basophils Auto (Bld) [#/Vol] Ordered By: Debbie Mac on 01-09-2023 Basophils (Bld) [#/Vol] 0.0 10*3/uL 0.0-0.2 [facility] Basophils/100 WBC Auto (Bld) Ordered By: Debbie Mac on 01-09-2023 Basophils/100 WBC (Bld) 0.6 % . [facility] Carbon dioxide, total [Moles /volume] in Serum or PlasmaOrdered By: Debbie Mac on 01-09-2023 CO2 [Moles/Vol] 25.6 mmol/L 21.0-31.0 [facility] Chloride [Moles/volume] in S vaughn or PlasmaOrdered By: Debbie Mac on 01-09-2023 Chloride [Moles/Vol] 106 mmol/L 98-107 [facility] Cholesterol [Mass/volume] in Serum or PlasmaOrdered By: Debbie Mac on 01-09-2023 Cholesterol [Mass/Vol] 135 mg/dL 140-200 [facility] Comment on above: Chol less than 200 m g/dl low riskChol 201-239 mg/dl borderline riskChol 240 mg/dl and greater high risk Cholesterol in LDL Calc [Mas s/Vol]Ordered By: Debbie Mac on 01-09-2023 Cholesterol in LDL [Mass/Vol] 45 mg/dL 0-100 [facility] Comment on above: LDL ATP III CLASSIFI CATIONLDL less than 100 mg/dL OptimalLDL 100-129 mg/dL Near or above optimalLDL 130-159 mg/dL Borderline highLDL 160-189 mg/dL HighLDL greater than 189 mg/dL Very high Cholesterol in VLDL Calc [Ma ss/Vol]Ordered By: Debbie aMc on 01-09-2023 Cholesterol in VLDL [Mass/Vol] 13 mg/dL [facility] Creatinine [Mass/volume] in Serum or PlasmaOrdered By: Debbie Mac on 01-09-2023 Creatinine [Mass/Vol] 0.98 mg/dL 0.60-1.20 [facility] Eosinophils Auto (Bld) [#/Vo l]Ordered By: Debbie Mac on 01-09-2023 Eosinophils (Bld) [#/Vol] 0.2 10*3/uL 0.0-0.45 [facility] Eosinophils/100 WBC Auto (Bl d)Ordered By: Debbie Mac on 01-09-2023 Eosinophils/100 WBC (Bld) 2.9 % . [facility] Erythrocyte distribution wid th Auto (RBC) [Ratio]Ordered By: Debbie Mac on 01-09-2023 Erythrocyte distribution width (RBC) [Ratio] 14.5 % 11.9-15.3 [facility] Hematocrit Auto (Bld) [Volum e fraction]Ordered By: Debbie Mac on 01-09-2023 Hematocrit (Bld) [Volume fraction] 43.9 % 34.0-46.4 [facility] Hemoglobin [Mass/volume] in BloodOrdered By: Debbie Mac on 01-09-2023 Hemoglobin (Bld) [Mass/Vol] 14.7 g/dL 11.8-15.4 [facility] Laboratory - Chemistry and C hemistry - challengeon 01-09-2023 Cholesterol [Mass/Vol] 135\S\135 below low threshold 140-200 [facility] Work Phone: Comment on above: Chol less than 200 m g/dl low risk Chol 201-239 mg/dl borderline risk Chol 240 mg/dl and greater high risk Cholesterol in LDL [Mass/Vol] 45\S\45 Normal 0-100 [facility] Work Phone: Comment on above: LDL ATP III CLASSIFI CATION LDL less than 100 mg/dL Optimal LDL 100-129 mg/dL Near or above optimal LDL 130-159 mg/dL Borderline high LDL 160-189 mg/dL High LDL greater than 189 mg/dL Very high Laboratory - CoagulationOrde red By: Debbie Mac on 01-09-2023 PT Coag (PPP) [Time] 11.5 s 9.0-12.9 [facility] Leukocytes [#/volume] correc anne marie for nucleated erythrocytes in Blood by Automated counOrdered By: Debbie Mac on 01-09-2023 WBC corrected for nucl RBC Auto (Bld) [#/Vol] 7.1 10*3/uL 3.8-11.6 [facility] Lymphocytes Auto (Bld) [#/Vo l]Ordered By: Debbie Mac on 01-09-2023 Lymphocytes (Bld) [#/Vol] 1.0 10*3/uL 1.00-4.8 [facility] Lymphocytes/100 WBC Auto (Bl d)Ordered By: Debbie Mac on 01-09-2023 Lymphocytes/100 WBC (Bld) 14.7 % . [facility] MCH Auto (RBC) [Entitic mass ]Ordered By: Debbie Mac on 01-09-2023 MCH (RBC) [Entitic mass] 29.8 pg 24.7-34.3 [facility] MCHC Auto (RBC) [Mass/Vol]Or dered By: Debbie Mac on 01-09-2023 MCHC (RBC) [Mass/Vol] 33.5 g/dL 32.0-35.0 [facility] MCV Auto (RBC) [Entitic vol] Ordered By: Debbie Mac on 01-09-2023 MCV (RBC) [Entitic vol] 89.1 fL 80-100 [facility] Monocytes Auto (Bld) [#/Vol] Ordered By: Debbie Mac on 01-09-2023 Monocytes (Bld) [#/Vol] 0.5 10*3/uL 0.0-0.8 [facility] Monocytes/100 WBC Auto (Bld) Ordered By: Debbie Mac on 01-09-2023 Monocytes/100 WBC (Bld) 7.0 % . [facility] Neutrophils Auto (Bld) [#/Vo l]Ordered By: Debbie Mac on 01-09-2023 Neutrophils (Bld) [#/Vol] 5.3 10*3/uL 1.8-7.7 [facility] Neutrophils/100 WBC Auto (Bl d)Ordered By: Debbie Mac on 01-09-2023 Neutrophils/100 WBC (Bld) 74.8 % . [facility] No Panel Informationon 01-09 74.8\S\74.8 Normal . [facility] Work Phone: 8.8\S\8.8 Normal 6.3-10.7 [facility] Work Phone: 167\S\167 Normal 150-450 [facility] Work Phone: 14.5\S\14.5 Normal 11.9-15.3 [facility] Work Phone: [phone] 33.5\S\33.5 Normal 32.0-35.0 [facility] Work Phone: 29.8\S\29.8 Normal 24.7-34.3 [facility] Work Phone: [phone] 5.3\S\5.3 Normal 1.8-7.7 [facility] Work Phone: 0.1\S\0.1 Normal 0-0.5 [facility] Work Phone: 0.6\S\0.6 Normal . [facility] Work Phone: 2.9\S\2.9 Normal . [facility] Work Phone: 7.0\S\7.0 Normal . [facility] Work Phone: [phone] 14.7\S\14.7 Normal 11.8-15.4 [facility] Work Phone: 0.0\S\0.0 Normal 0.0-0.2 [facility] Work Phone: [phone] Comment on above: PERFORMED BY:[address] [address] [place], [place] [phone] MEDICAL DIRECTORVITOR ZARATE M.D. 0.2\S\0.2 Normal 0.0-0.45 [facility] Work Phone: 0.5\S\0.5 Normal 0.0-0.8 [facility] Work Phone: 1.0\S\1.0 Normal 1.00-4.8 [facility] Work Phone: 89.1\S\89.1 Normal 80-100 [facility] Work Phone: 43.9\S\43.9 Normal 34.0-46.4 [facility] Work Phone: 4.92\S\4.92 Normal 3.60-5.00 [facility] Work Phone: [phone] 7.1\S\7.1 Normal 3.8-11.6 [facility] Work Phone: [phone] 4.5\S\4.5 Normal 3.5-5.1 [facility] Work Phone: [phone] Comment on above: PERFORMED BY:[address] [address] [place], [place] [phone] MEDICAL DIRECTORVITOR ZARATE M.D. 1.8\S\1.8 Normal <5.0 [facility] Work Phone: [phone] Comment on above: PERFORMED BY:[address] [address] [place], [place] [phone] MEDICAL DIRECTORVITOR ZARATE M.D. 13\S\13 Normal [facility] Work Phone: [phone] 69\S\69 Normal 0-149 [facility] Work Phone: [phone] Comment on above: TRIG ATP III CLASSIF ICATION TRIG less than 150 mg/dL Normal TRIG 150-199 mg/dL Borderline high TRIG 200-500 mg/dL High TRIG greater than 500 mg/dL Very high Standard traceable to the Center for Disease Conrtrol and Prevention (CDC) test method. 76\S\76 Normal 35-85 [facility] Work Phone: [phone] Comment on above: HDL CHOL ATP-III CLA SSIFICATION Cardiovascular Risk HDL > or equal to 60 mg/dL LOW HDL < 40 mg/dL HIGH 19.5\S\19.5 below low threshold 25.1-36.5 [facility] Work Phone: [phone] Comment on above: PERFORMED BY:[address] [address] [place], [place] [phone] MEDICAL HERITAGE VALLEY HEALTH SYSTEMVITOR ZARATE M.D. 1.0\S\1.0 Normal [facility] Work Phone: [phone] Comment on above: INR Therapeutic Rang e [...] valves: 3 - 4.5 11.5\S\11.5 Normal 9.0-12.9 [facility] Work Phone: Test not performed\S \Test not performed Normal 6.0-15.0 [facility] Work Phone: [phone] 25.6\S\25.6 Normal 21.0-31.0 [facility] Work Phone: [phone] 106\S\106 Normal 98-107 [facility] Work Phone: [phone] Normal 3.5-5.1 [facility] Work Phone: Comment on above: Specimen hemolyzed, redraw requested 138\S\138 Normal 136-145 [facility] Work Phone: [phone] 22\S\22 Normal 7-25 [facility] Work Phone: [phone] 40.90\S\40.90 Normal [facility] Work Phone: Comment on above: PERFORMED BY:[facility] [place], [place] [phone] MEDICAL DIRECTORVITOR ZARATE M.D. 58.349\S\58.349 Normal [facility] Work Phone: [phone] 0.98\S\0.98 Normal 0.60-1.20 [facility] Work Phone: No Panel InformationOrdered By: Debbie Mac on 01-09-2023 Estimated GFR (CKD-EPI) 58.349 mL/Min [facility] Creatinine Clearance (Chem 40.90 [facility] Nucleated erythrocytes [Pres ence] in Blood by Automated countOrdered By: Debbie Mac on 01-09-2023 Nucleated RBC Auto Ql (Bld) 0.1 /100{WBC} 0-0.5 [facility] Platelet mean volume Auto (B ld) [Entitic vol]Ordered By: Debbie Mac on 01-09-2023 Platelet mean volume (Bld) [Entitic vol] 8.8 fL 6.3-10.7 [facility] Platelet poor plasma interna tional normalized ratio (INR) by coagulation assay (relatOrdered By: Debbie Mac on 01-09-2023 INR Coag (PPP) [Relative time] 1.0 {INR} [facility] Comment on above: INR Therapeutic Rang e [...] 01-09-2023 Platelets (Bld) [#/Vol] 167 10*3/uL 150-450 [facility] Potassium [Moles/volume] in Serum or PlasmaOrdered By: Debbie Mac on 01-09-2023 Potassium [Moles/Vol] 4.5 mmol/L 3.5-5.1 [facility] RBC Auto (Bld) [#/Vol]Ordere d By: Debbie Mac on 01-09-2023 RBC (Bld) [#/Vol] 4.92 10*6/uL 3.60-5.00 [facility] Serum or plasma anion gap de terminationOrdered By: Debbie Mac on 01-09-2023 Anion gap [Moles/Vol] TNP [facility] Comment on above: Test not performed Serum or plasma high density lipoprotein (HDL) cholesterol measurementOrdered By: Debbie Mac on 01-09-2023 Cholesterol in HDL [Mass/Vol] 76 mg/dL 35-85 [facility] Comment on above: HDL CHOL ATP-III CLA SSIFICATION Cardiovascular RiskHDL > or equal to 60 mg/dL LOWHDL < 40 mg/dL HIGH Serum or plasma total choles terol/high density lipoprotein (HDL) cholesterol mass ratOrdered By: Debbie Mac on 01-09-2023 Cholesterol.total/Cho lesterol in HDL [Mass ratio] 1.8 {ratio} <5.0 [facility] Sodium [Moles/volume] in Ser um or PlasmaOrdered By: Debbie Mac on 01-09-2023 Sodium [Moles/Vol] 138 mmol/L 136-145 [facility] Triglyceride [Mass/volume] i n Serum or PlasmaOrdered By: Debbie Mac on 01-09-2023 Triglyceride [Mass/Vol] 69 mg/dL 0-149 [facility] Comment on above: TRIG ATP III CLASSIF ICATIONTRIG less than 150 mg/dL NormalTRIG 150-199 mg/dL Borderline highTRIG 200-500 mg/dL High TRIG greater than 500 mg/dL Very highStandard traceable to the Center for Disease Conrtrol and Prevention (CDC) test method. Urea nitrogen [Mass/volume] in Serum or PlasmaOrdered By: Debbie Mac on 01-09-2023 Urea nitrogen [Mass/Vol] 22 mg/dL 7-25 [facility] WBC Auto (Bld) [#/Vol]Ordere d By: Debbie Mac on 01-09-2023 WBC (Bld) [#/Vol] 7.1 10*3/uL 3.8-11.6 [facility] Office Visit (Cardiology)on 01-04-2023 Follow-up visit Diagnoses/Problems [...] in adult Healthy Weight Tips; Status:Complete; Done: [id number] Some eating tips that can help you lose weight.; Status:Complete; Done: [id number] Diastolic heart failure, Dyspnea, Essential hypertension, benign, Persistent atrial fibrillation, 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 Cardiac Catherization; Status:Active; Requested for:[id number]; Persistent atrial fibrillation IO EKG Electrocardiogram- 12 Lead; Status:Complete; Done: [id number] SocHx: Never a smoker Tobacco Use Screening; Status:Complete; Done: [id number] Patient Instructions Please bring all medicines, vitamins, [...] and alternat (more content not included)... Normal [facility] TROPONIN, HIGH SENSITIVITYon 01-04-2023 HSTROP 73.1 pg/mL Critically high 4.0-51.3 [facility] Comment on above: Result Comment: CUT- OFF POINTS HAVE BEEN ESTABLISHED BASED ON THE FOURTH UNIVERSAL DEFINITIONS OF MYOCARDIAL INFARCTION. THE UPPER REFERENCE LIMIT (URL) OF TROPONIN, DEFINED THE 99TH PERCENTILE OF cTnI DISTRIBUTION IN A REFERENCE POPULATION, HAS BEEN CONFIRMED THE DECISION THRESHOLD FOR ND DIAGNOSIS. Performed By: #### H STROPN #### [facility] [address] [address] [address] Lori Sutton Tobacco Screening.on 023 Tobacco use status CPHS b) No [employer] Work Phone: XR CHEST 1 Von 01-04-2023 [...] Large hiatal hernia. Electronically authenticated by: [facility] Date: 2023-01-03 22:39 Normal [facility] BNPon 01-03-2023 Natriuretic peptide B (Bld) [Mass/Vol] 438.0 pg/mL Normal <=1,800.0 [facility] Comment on above: Performed By: #### B WATCH REPAIRER APPRENTICE ####[facility] [address] [phone] Sutton CBC AUTO DIFFon 01-03-2023 BASO # 0.0 103/ul Normal 0.0-0.1 [facility] Comment on above: Performed By: #### C BC ####[facility] [address] [address]DrMelita Sutton Basophils/100 WBC (Bld) 0.7 % Normal 0.2-2.0 [facility] Comment on above: Performed By: #### C BC ####[facility] [address] [address]DrMelita Sutton EO # 0.2 103/ul Normal 0.0-0.7 [facility] Comment on above: Performed By: #### C BC ####[facility] [address] [address]Dr. Lori Sutton Eosinophils/100 WBC (Bld) 4.2 % Normal 0.9-7.0 [facility] Comment on above: Performed By: #### C BC ####[facility] [address] [place], [place] [address]Dr. Lori Sutton Erythrocyte distribution width (RBC) [Ratio] 13.7 % Normal 11.0-15.0 [facility] Comment on above: Performed By: #### C BC ####[facility] [address] [place], [place] [address]Dr. Lori Sutton Hematocrit (Bld) [Volume fraction] 46.1 % Normal 36.0-48.0 [facility] Comment on above: Performed By: #### C BC ####[facility] [address] [place], [place] [address]Dr. Lori Sutton Hemoglobin (Bld) [Mass/Vol] 14.7 g/dL Normal 12.0-16.0 [facility] Comment on above: Performed By: #### C BC ####[facility] [address] [place], [place] [address]Dr. Lori Sutton IG # 0.01 10e3/ul Normal 0.00-0.03 [facility] Comment on above: Performed By: #### C BC ####[facility] [address] [place], [place] [address]Dr. Lori Sutton IG % 0.2 % Normal 0.0-0.5 [facility] Comment on above: Performed By: #### C BC ####[facility] [address] [place], [place] [address]Dr. Lori Sutton LYMPH # 1.3 103/ul Normal 1.2-3.8 [facility] Comment on above: Performed By: #### C BC ####[facility] [address] [place], [place] [address]Dr. Lori Sutton Lymphocytes/100 WBC (Bld) 22.9 % Normal 20.5-60.0 [facility] Comment on above: Performed By: #### C BC ####[facility] [address] [address]Dr. Lori Herman MANUAL DIFF REQ NO Normal [facility] Comment on above: Performed By: #### C BC ####[facility] [address] [phone]. Lori Sutton MCH (RBC) [Entitic mass] 29.7 pg Normal 26.7-34.0 [facility] Comment on above: Performed By: #### C BC ####[facility] [address] [address]Dr. Lori Herman MCHC (RBC) [Mass/Vol] 31.9 g/dL Normal 29.9-35.2 [facility] Comment on above: Performed By: #### C BC ####[facility] [address] [address]Dr. Lori Herman MCV (RBC) [Entitic vol] 93.1 fL Normal 81.0-99.0 [facility] Comment on above: Performed By: #### C BC ####[facility] [address] [place], [place] [address]Dr. Lori Herman MONO # 0.3 103/ul Normal 0.3-0.8 [facility] Comment on above: Performed By: #### C BC ####[facility] [address] [place], [place] [address]Dr. Estephaniaurbano Sutton Monocytes/100 WBC (Bld) 4.7 % Normal 1.7-12.0 [facility] Comment on above: Performed By: #### C BC ####[facility] [address] [address]Dr. Lori Herman NEUT # 3.9 103/ul Normal 1.4-6.5 [facility] Comment on above: Performed By: #### C BC ####[facility] [address] [place], [place] [address]Dr. Estephaniaurbano Sutton Neutrophils/100 WBC (Bld) 67.3 % Normal 43.0-75.0 [facility] Comment on above: Performed By: #### C BC ####[facility] [address] [place] [phone]. Lori Sutton Platelet mean volume (Bld) [Entitic vol] 10.5 fL Normal 9.5-13.5 [facility] Comment on above: Performed By: #### C BC ####[facility] [address] [place] [phone]. Lori Sutton PLT 211 103/ul Normal 150-450 [facility] Comment on above: Performed By: #### C BC ####[facility] [address] [phone]. Lori Sutton RBC 4.95 106/ul Normal 4.20-5.40 [facility] Comment on above: Performed By: #### C BC ####[facility] [address] [place] [phone]. Lori Sutton WBC 5.7 103/ul Normal 4.0-11.0 [facility] Comment on above: Performed By: #### C BC ####[facility] [address] [place] [phone]. Lori Sutton D-DIMERon 01-03-2023 D-DIMER 0.26 mg/L FEU Normal <=0.59 [facility] Comment on above: Performed By: #### D DIM ####[facility] [address] [phone]. Lori Sutton D-DIMER COMMENTS SEE BELOW Normal [facility] Comment on above: Result Comment: Incr [...] generalized hospitalization. Performed By: #### D DIM ####[facility] [address] [place], [place] [address]Uq. Lori Sutton Office Visit (Cardiology)on 01-03-2023 Follow-up [...] Lead; Status:Active - Perform Order,Retrospective Authorization; Requested for:[id number]; SocHx: Never a smoker Tobacco Use Screening; Status:Complete; Done: [id number] Patient Instructions Continue same medications/treatment. Patient educated [...] fibrillation for which she started seeing [facility] since 2020 after she was hospitalized in [facility] for bradycardia. Adjustment of her medical therapy [...] therapy. Patient is being evaluated recently at [facility] for ablation therapy for atrial fibrillation. [...] had a dual-chamber pacemaker [facility] MRI implanted in June 29, 2021. Clinical [...] 023 Albumin [Mass/Vol] 3.8 g/dL Normal 3.4-5.0 [facility] Comment on above: Performed By: #### C LESTER, HSTROPN ####[facility] [address] [address]Dr. Lori Sutton Albumin/Globulin [Mass ratio] 1.2 {ratio} Normal [facility] Comment on above: Performed By: #### C LESTER, HSTROPN ####[facility] [address] [place], [place] [address]Dr. Lori Sutton ALP [Catalytic activity/Vol] 101 U/L Normal 46-116 [facility] Comment on above: Performed By: #### C LESTER, HSTROPN ####[facility] [address] [address]Dr. Lori Sutton ALT [Catalytic activity/Vol] 25 U/L Normal 14-59 [facility] Comment on above: Performed By: #### C LESTER, HSTROPN ####[facility] [address] [address]Dr. Lori Sutton Anion gap [Moles/Vol] 15.5 mmol/L Normal [facility] Comment on above: Performed By: #### C LESTER, HSTROPN ####[facility] [address] [address]Dr. Lori Sutton AST [Catalytic activity/Vol] 24 U/L Normal 15-37 [facility] Comment on above: Performed By: #### C LESTER, HSTROPN ####[facility] [address] [address]Dr. Lori Sutton Bilirubin [Mass/Vol] 0.8 mg/dL Normal 0.2-1.0 [facility] Comment on above: Performed By: #### C MP, HSTROPN ####[facility] [address] [address]Dr. Lori Sutton Calcium [Mass/Vol] 8.8 mg/dL Normal 8.5-10.1 [facility] Comment on above: Performed By: #### C MP, HSTROPN ####[facility] [address] [address]Dr. Lori Sutton Chloride [Moles/Vol] 105 mmol/L Normal 98-107 [facility] Comment on above: Performed By: #### C MP, HSTROPN ####[facility] [address] [address]Dr. Lori Sutton CO2 [Moles/Vol] 24.5 mmol/L Normal 21.0-32.0 [facility] Comment on above: Performed By: #### C MP, HSTROPN ####[facility] [address] [place], [place] [address]Dr. Lori Sutton Creatinine [Mass/Vol] 1.28 mg/dL Critically high 0.55-1.02 [facility] Comment on above: Performed By: #### C MP, HSTROPN ####[facility] [address] [place], [place] [address]Dr. Lori Sutton EGFR-AF GIBRALTARIAN 49 mL/min/1.73m2 Critically low >=60 [facility] Comment on above: Performed By: #### C MP, HSTROPN ####[facility] [address] [place], [place] [address]Dr. Lori Sutton EGFR-NON AF GIBRALTARIAN 40 mL/min/1.73m2 Critically low >=60 [facility] Comment on above: Performed By: #### C MP, HSTROPN ####[facility] [address] [place], [place] [address]Dr. Lori Sutton Globulin (S) [Mass/Vol] 3.2 g/dL Normal [facility] Comment on above: Performed By: #### C MP, HSTROPN ####[facility] [address] [address]Dr. Lori Sutton Glucose [Mass/Vol] 230 mg/dL Critically high 74-106 [facility] Comment on above: Performed By: #### C MP, HSTROPN ####[facility] [address] [address]Dr. Lori Sutton Potassium [Moles/Vol] 4.0 mmol/L Normal 3.5-5.1 [facility] Comment on above: Performed By: #### C MP, HSTROPN ####[facility] [address] [address]Dr. Lori Sutton Protein [Mass/Vol] 7.0 g/dL Normal 6.4-8.2 [facility] Comment on above: Performed By: #### C MP, HSTROPN ####[facility] [address] [place], [place] [address]Dr. Lori Sutton Sodium [Moles/Vol] 141 mmol/L Normal 136-145 [facility] Comment on above: Performed By: #### C MP, HSTROPN ####[facility] [address] [place] [address]Dr. Lori Sutton Urea nitrogen [Mass/Vol] 28.0 mg/dL Critically high 7.0-18.0 [facility] Comment on above: Performed By: #### C MP, HSTROPN ####[facility] [address] [place], [place] [address]Dr. Lori Sutton Urea nitrogen/Creatinine [Mass ratio] 21.9 mg/mg Normal [facility] Comment on above: Performed By: #### C MP, HSTROPN ####[facility] [address] [place], [place] [address]Dr. Lori Sutton TROPONIN, HIGH SENSITIVITYon 01-03-2023 HSTROP 74.5 pg/mL Critically high 4.0-51.3 [facility] Comment on above: Result Comment: CUT- OFF POINTS HAVE BEEN ESTABLISHED BASED ON THE FOURTH UNIVERSAL DEFINITIONS OF MYOCARDIAL INFARCTION. THE UPPER REFERENCE LIMIT (URL) OF TROPONIN, DEFINED THE 99TH PERCENTILE OF cTnI DISTRIBUTION IN A REFERENCE POPULATION, HAS BEEN CONFIRMED THE DECISION THRESHOLD FOR ND DIAGNOSIS. Performed By: #### C MP, HSTROPN ####[facility] [address] [place] [address]Dr. Lori Sutton Tobacco Screening.on 023 Fall risk assessment a) No falls within the last year [facility] Work Phone: Tobacco use status CPHS b) No [facility] Work Phone: Tobacco Screening. Yes [facility] Work Phone: AMYLASEon 01-02-2023 Amylase [Catalytic activity/Vol] 37 U/L Normal 25-115 [facility] Comment on above: Performed By: #### B WATCH REPAIRER APPRENTICE, GERRY, CMP #### [facility] [address] [place] [address] Dr. Lori Sutton BNPon 01-02-2023 Natriuretic peptide B (Bld) [Mass/Vol] 690.0 pg/mL Normal <=1,800.0 [facility] Comment on above: Performed By: #### B WATCH REPAIRER APPRENTICE, GERRY, CMP ####[facility] [address] [place] [address]Dr. Lori Sutton CBC AUTO DIFFon 01-02-2023 BASO # 0.0 103/ul Normal 0.0-0.1 [facility] Comment on above: Performed By: #### C BC #### [facility] [address] [address] [address] Lori Sutton Basophils/100 WBC (Bld) 0.6 % Normal 0.2-2.0 [facility] Comment on above: Performed By: #### C BC #### [facility] [address] [address] [address] Lori Sutton EO # 0.2 103/ul Normal 0.0-0.7 [facility] Comment on above: Performed By: #### C BC #### [facility] [address] [place] [address] Dr. Lori Sutton Eosinophils/100 WBC (Bld) 2.8 % Normal 0.9-7.0 [facility] Comment on above: Performed By: #### C BC #### [facility] [address] [address] [address] Lori Sutton Erythrocyte distribution width (RBC) [Ratio] 13.8 % Normal 11.0-15.0 [facility] Comment on above: Performed By: #### C BC #### [facility] [address] [place] [address] Dr. Lori Sutton Hematocrit (Bld) [Volume fraction] 46.3 % Normal 36.0-48.0 [facility] Comment on above: Performed By: #### C BC #### [facility] [address] [place] [address] Dr. Lori Sutton Hemoglobin (Bld) [Mass/Vol] 15.0 g/dL Normal 12.0-16.0 [facility] Comment on above: Performed By: #### C BC #### [facility] [address] [place] [address] Dr. Lori Sutton IG # 0.01 10e3/ul Normal 0.00-0.03 [facility] Comment on above: Performed By: #### C BC #### [facility] [address] [place] [address] Dr. Lori Sutton IG % 0.2 % Normal 0.0-0.5 [facility] Comment on above: Performed By: #### C BC #### [facility] [address] [place] [address] Dr. Lori Sutton LYMPH # 1.1 103/ul Critically low 1.2-3.8 [facility] Comment on above: Performed By: #### C BC #### [facility] [address] [place] [address] Dr. Lori Sutton Lymphocytes/100 WBC (Bld) 17.6 % Critically low 20.5-60.0 [facility] Comment on above: Performed By: #### C BC #### [facility] [address] [place] [address] Dr. Lori Sutton MANUAL DIFF REQ NO Normal [facility] Comment on above: Performed By: #### C BC #### [facility] [address] [place] [address] Dr. Lori Sutton MCH (RBC) [Entitic mass] 29.7 pg Normal 26.7-34.0 [facility] Comment on above: Performed By: #### C BC #### [facility] [address] [place] [address] Dr. Lori Sutton MCHC (RBC) [Mass/Vol] 32.4 g/dL Normal 29.9-35.2 [facility] Comment on above: Performed By: #### C BC #### [facility] [address] [place] [address] Dr. Lori Sutton MCV (RBC) [Entitic vol] 91.7 fL Normal 81.0-99.0 [facility] Comment on above: Performed By: #### C BC #### [facility] [address] [place] [address] Dr. Lori Sutton MONO # 0.4 103/ul Normal 0.3-0.8 [facility] Comment on above: Performed By: #### C BC #### [facility] [address] [place] [address] Dr. Lori Sutton Monocytes/100 WBC (Bld) 6.2 % Normal 1.7-12.0 [facility] Comment on above: Performed By: #### C BC #### [facility] [address] [place] [address] Dr. Lori Sutton NEUT # 4.6 103/ul Normal 1.4-6.5 [facility] Comment on above: Performed By: #### C BC #### [facility] [address] [place] [address] Dr. Lori Sutton Neutrophils/100 WBC (Bld) 72.6 % Normal 43.0-75.0 [facility] Comment on above: Performed By: #### C BC #### [facility] [address] [place] [address] Dr. Lori Sutton Platelet mean volume (Bld) [Entitic vol] 10.3 fL Normal 9.5-13.5 [facility] Comment on above: Performed By: #### C BC #### [facility] [address] [place] [address] [address] Lori Sutton PLT 207 103/ul Normal 150-450 [facility] Comment on above: Performed By: #### C BC #### [facility] [address] [address] [address] Lori Sutton RBC 5.05 106/ul Normal 4.20-5.40 [facility] Comment on above: Performed By: #### C BC #### [facility] [address] [address] [address] Lori Sutton WBC 6.3 103/ul Normal 4.0-11.0 [facility] Comment on above: Performed By: #### C BC #### [facility] [address] [address] [address] Lori Sutton PROF 14(COMP METB)on 023 Albumin [Mass/Vol] 3.9 g/dL Normal 3.4-5.0 [facility] Comment on above: Performed By: #### B WATCH REPAIRER APPRENTICE, GERRY, CMP ####[facility] [address] [place] [address]Dr. Lori Sutton Albumin/Globulin [Mass ratio] 1.2 {ratio} Normal [facility] Comment on above: Performed By: #### B WATCH REPAIRER APPRENTICE, GERRY, CMP ####[facility] [address] [place] [address]Dr. Lori Sutton ALP [Catalytic activity/Vol] 98 U/L Normal 46-116 [facility] Comment on above: Performed By: #### B WATCH REPAIRER APPRENTICE, GERRY, CMP ####[facility] [address] [place] [address]Dr. Lori Sutton ALT [Catalytic activity/Vol] 24 U/L Normal 14-59 [facility] Comment on above: Performed By: #### B WATCH REPAIRER APPRENTICE, GERRY, CMP ####[facility] [address] [place] [address]Dr. Lori Sutton Anion gap [Moles/Vol] 12.0 mmol/L Normal [facility] Comment on above: Performed By: #### B WATCH REPAIRER APPRENTICE, GERRY, CMP ####[facility] [address] [place] [address]Dr. Lori Sutton AST [Catalytic activity/Vol] 25 U/L Normal 15-37 [facility] Comment on above: Performed By: #### B WATCH REPAIRER APPRENTICE, GERRY, CMP ####[facility] [address] [place] [address]Dr. Lori Sutton Bilirubin [Mass/Vol] 0.8 mg/dL Normal 0.2-1.0 [facility] Comment on above: Performed By: #### B WATCH REPAIRER APPRENTICE, GERRY, CMP ####[facility] [address] [place], [place] [address]Dr. Lori Sutton Calcium [Mass/Vol] 9.2 mg/dL Normal 8.5-10.1 [facility] Comment on above: Performed By: #### B WATCH REPAIRER APPRENTICE, GERRY, CMP ####[facility] [address] [place], [place] [address]Dr. Lori Sutton Chloride [Moles/Vol] 107 mmol/L Normal 98-107 [facility] Comment on above: Performed By: #### B WATCH REPAIRER APPRENTICE, GERRY, CMP ####[facility] [address] [place], [place] [address]Dr. Lori Sutton CO2 [Moles/Vol] 28.6 mmol/L Normal 21.0-32.0 [facility] Comment on above: Performed By: #### B WATCH REPAIRER APPRENTICE, GERRY, CMP ####[facility] [address] [place], [place] [address]Dr. Lori Sutton Creatinine [Mass/Vol] 1.08 mg/dL Critically high 0.55-1.02 [facility] Comment on above: Performed By: #### B WATCH REPAIRER APPRENTICE, GERRY, CMP ####[facility] [address] [place], [place] [address]Dr. Lori Sutton EGFR-AF GIBRALTARIAN 59 mL/min/1.73m2 Critically low >=60 [facility] Comment on above: Performed By: #### B WATCH REPAIRER APPRENTICE, GERRY, CMP ####[facility] [address] [place], [place] [address]Dr. Lori Sutton EGFR-NON AF GIBRALTARIAN 49 mL/min/1.73m2 Critically low >=60 [facility] Comment on above: Performed By: #### B WATCH REPAIRER APPRENTICEGERRY, CMP ####[facility] [address] [place] [address]Dr. Lori Sutton Globulin (S) [Mass/Vol] 3.2 g/dL Normal [facility] Comment on above: Performed By: #### B WATCH REPAIRER APPRENTICEGERRY, CMP ####[facility] [address] [place] [address]Dr. Lori Sutton Glucose [Mass/Vol] 103 mg/dL Normal 74-106 [facility] Comment on above: Performed By: #### B WATCH REPAIRER APPRENTICEGERRY, CMP ####[facility] [address] [place] [address]Dr. Lori Sutton Potassium [Moles/Vol] 4.6 mmol/L Normal 3.5-5.1 [facility] Comment on above: Performed By: #### B WATCH REPAIRER APPRENTICEGERRY, CMP ####[facility] [address] [place] [address]Dr. Lori Sutton Protein [Mass/Vol] 7.1 g/dL Normal 6.4-8.2 [facility] Comment on above: Performed By: #### B WATCH REPAIRER APPRENTICEGERRY, CMP ####[facility] [address] [place] [address]Dr. Lori Sutton Sodium [Moles/Vol] 143 mmol/L Normal 136-145 [facility] Comment on above: Performed By: #### B WATCH REPAIRER APPRENTICEGERRY, CMP ####[facility] [address] [place] [address]Dr. Lori Sutton Urea nitrogen [Mass/Vol] 29.0 mg/dL Critically high 7.0-18.0 [facility] Comment on above: Performed By: #### B WATCH REPAIRER APPRENTICEGERRY, CMP ####[facility] [address] [place] [address]Dr. Lori Sutton Urea nitrogen/Creatinine [Mass ratio] 26.9 mg/mg Normal [facility] Comment on above: Performed By: #### B WATCH REPAIRER APPRENTICEGERRY, CMP ####[facility] [address] [place], [place] [address]Yr. Lori Sutton XR CHEST 2 Von 01-02-2023 [...] ARI LEVY Date: 2023-01-02 12:33 Normal [facility] Office Visit (Cardiology)on 12-25-2022 Follow-up visit Diagnoses/Problems [...] AF includes Amiodarone (d/c?d for concerns of chcf side effects), tikosyn (prolonged OTc), sotalol and DCCV (09/2022). Symptoms of her AF include fatigue and BRAY. Pt follows with Dr Stover for management of her AF. 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 She was then put on [...] @ 109 bpm Echo 08/2022 ([facility] ? [facility]): LVEF 40%, moderate anteroseptal hypokinesis with [...] 11-27-2022 ALP [Catalytic activity/Vol] 67 U/L 34-104 [facility] Amylase [Enzymatic activity/ volume] in Serum or PlasmaOrdered By: Wilbur Watson on 11-27-2022 Amylase [Catalytic activity/Vol] 24 U/L 29-103 [facility] Bilirubin.direct [Mass/volum e] in Serum or PlasmaOrdered By: Wilbur Watson on 11-27-2022 Bilirubin.direct [Mass/Vol] 0.20 mg/dL 0.03-0.18 [facility] Bilirubin.total [Mass/volume ] in Serum or PlasmaOrdered By: Wilbur Watson on 11-27-2022 Bilirubin [Mass/Vol] 0.8 mg/dL 0.3-1.0 [facility] Lipase [Enzymatic activity/v olume] in Serum or PlasmaOrdered By: Wilbur Watson on 11-27-2022 Lipase [Catalytic activity/Vol] 31.0 U/L 11.0-82.0 [facility] Serum or plasma non-glucuron idated bilirubin measurement (mass/volume)Ordered By: Wilbur Watson on 11-27-2022 Bilirubin.indirect [Mass/Vol] 0.6 mg/dL [facility] Basophils Auto (Bld) [#/Vol] Ordered By: Wilbur Watson on 11-20-2022 Basophils (Bld) [#/Vol] 0.1 10*3/uL 0.0-0.2 [facility] Basophils/100 WBC Auto (Bld) Ordered By: Wilbur Watson on 11-20-2022 Basophils/100 WBC (Bld) 0.9 % . [facility] Calcium [Mass/volume] in Ser um or PlasmaOrdered By: Wilbur Watson on 11-20-2022 Calcium [Mass/Vol] 9.5 mg/dL 8.6-10.3 [facility] Carbon dioxide, total [Moles /volume] in Serum or PlasmaOrdered By: Wilbur Watson on 11-20-2022 CO2 [Moles/Vol] 25.5 mmol/L 21.0-31.0 [facility] Chloride [Moles/volume] in S vaughn or PlasmaOrdered By: Wilbur Watson on 11-20-2022 Chloride [Moles/Vol] 107 mmol/L 98-107 [facility] Creatinine [Mass/volume] in Serum or PlasmaOrdered By: Wilbur Watson on 11-20-2022 Creatinine [Mass/Vol] 1.08 mg/dL 0.60-1.20 [facility] Eosinophils Auto (Bld) [#/Vo l]Ordered By: Wilbur Watson on 11-20-2022 Eosinophils (Bld) [#/Vol] 0.3 10*3/uL 0.0-0.45 [facility] Eosinophils/100 WBC Auto (Bl d)Ordered By: Wilbur Watson on 11-20-2022 Eosinophils/100 WBC (Bld) 3.6 % . [facility] Erythrocyte distribution wid th Auto (RBC) [Ratio]Ordered By: Wilbur Watson on 11-20-2022 Erythrocyte distribution width (RBC) [Ratio] 13.9 % 11.9-15.3 [facility] Glucose [Mass/volume] in Ser um or PlasmaOrdered By: Wilbur Watson on 11-20-2022 Glucose [Mass/Vol] 91 mg/dL 70-100 [facility] Comment on above: ADA recommended refe rence rangeRandom Glucose Reference Range is dependent on time and content of last meal. Glucose of more than 200 mg/dL in a nonstressed, ambulatory subject supports the diagnosis of Diabetes Mellitus. Hematocrit Auto (Bld) [Volum e fraction]Ordered By: Wilbur Watson on 11-20-2022 Hematocrit (Bld) [Volume fraction] 46.1 % 34.0-46.4 [facility] Hemoglobin [Mass/volume] in BloodOrdered By: Wilbur Watson on 11-20-2022 Hemoglobin (Bld) [Mass/Vol] 15.2 g/dL 11.8-15.4 [facility] Leukocytes [#/volume] correc anne marie for nucleated erythrocytes in Blood by Automated counOrdered By: Wilbur Watson on 11-20-2022 WBC corrected for nucl RBC Auto (Bld) [#/Vol] 7.0 10*3/uL 3.8-11.6 [facility] Lymphocytes Auto (Bld) [#/Vo l]Ordered By: Wilbur Watson on 11-20-2022 Lymphocytes (Bld) [#/Vol] 1.6 10*3/uL 1.00-4.8 [facility] Lymphocytes/100 WBC Auto (Bl d)Ordered By: Wilbur Watson on 11-20-2022 Lymphocytes/100 WBC (Bld) 23.1 % . [facility] MCH Auto (RBC) [Entitic mass ]Ordered By: Wilbur Watson on 11-20-2022 MCH (RBC) [Entitic mass] 29.4 pg 24.7-34.3 [facility] MCHC Auto (RBC) [Mass/Vol]Or dered By: Wilbur Watson on 11-20-2022 MCHC (RBC) [Mass/Vol] 33.0 g/dL 32.0-35.0 [facility] MCV Auto (RBC) [Entitic vol] Ordered By: Wilbur Watson on 11-20-2022 MCV (RBC) [Entitic vol] 88.9 fL 80-100 [facility] Monocytes Auto (Bld) [#/Vol] Ordered By: Wilbur Watson on 11-20-2022 Monocytes (Bld) [#/Vol] 0.5 10*3/uL 0.0-0.8 [facility] Monocytes/100 WBC Auto (Bld) Ordered By: Wilbur Watson on 11-20-2022 Monocytes/100 WBC (Bld) 7.4 % . [facility] Neutrophils Auto (Bld) [#/Vo l]Ordered By: Wilbur Watson on 11-20-2022 Neutrophils (Bld) [#/Vol] 4.6 10*3/uL 1.8-7.7 [facility] Neutrophils/100 WBC Auto (Bl d)Ordered By: Wilbur Watson on 11-20-2022 Neutrophils/100 WBC (Bld) 65.0 % . [facility] No Panel InformationOrdered By: Wilbur Watson on 11-20-2022 Estimated GFR (CKD-EPI) 51.927 mL/Min [facility] Creatinine Clearance (Chem N/A [facility] Nucleated erythrocytes [Pres ence] in Blood by Automated countOrdered By: Wilbur Watson on 11-20-2022 Nucleated RBC Auto Ql (Bld) 0.1 /100{WBC} 0-0.5 [facility] Platelet mean volume Auto (B ld) [Entitic vol]Ordered By: Wilbur Watson on 11-20-2022 Platelet mean volume (Bld) [Entitic vol] 9.1 fL 6.3-10.7 [facility] Platelets Auto (Bld) [#/Vol] Ordered By: Wilbur Watson on 11-20-2022 Platelets (Bld) [#/Vol] 220 10*3/uL 150-450 [facility] Potassium [Moles/volume] in Serum or PlasmaOrdered By: Wilbur Watson on 11-20-2022 Potassium [Moles/Vol] 4.5 mmol/L 3.5-5.1 [facility] RBC Auto (Bld) [#/Vol]Ordere d By: Wilbur Watson on 11-20-2022 RBC (Bld) [#/Vol] 5.18 10*6/uL 3.60-5.00 [facility] Serum or plasma anion gap de terminationOrdered By: Wilbur Watson on 11-20-2022 Anion gap [Moles/Vol] 12.0 mmol/L 6.0-15.0 [facility] Sodium [Moles/volume] in Ser um or PlasmaOrdered By: Wilbur Watson on 11-20-2022 Sodium [Moles/Vol] 140 mmol/L 136-145 [facility] Urea nitrogen [Mass/volume] in Serum or PlasmaOrdered By: Wilbur Watson on 11-20-2022 Urea nitrogen [Mass/Vol] 31 mg/dL 7-25 [facility] WBC Auto (Bld) [#/Vol]Ordere d By: Wilbur Watson on 11-20-2022 WBC (Bld) [#/Vol] 7.0 10*3/uL 3.8-11.6 [facility] MG MAMM SCREEN 3D MARYBETH CADon 10-16-2022 MG MAMM SCREEN 3D MARYBETH CAD Patient: AUSTIN GOLDEN Exam Date: 10/16/2022 : 1940 Gender:F Ordering : DR JAZMIN العلي D.O. Admission #: [id number] Family : Order #: [id number] CLICK HERE TO VIEW EXAM RADIOLOGY REPORT [...] sarcoma cancer at age 45. LOCATION: [facility] BREAST COMPOSITION: Extremely dense, which lowers the [...] MD on 10/16/2022 at 14:09 Normal [facility] Office Visit (Cardiology)on 10-13-2022 Follow-up visit Diagnoses/Problems [...] Weight Tips; Status:Complete - Retrospective Authorization; Done: [id number] Some eating tips that can help you lose weight.; Status:Complete - Retrospective Authorization; Done: 13Oct2022 Gallstones General Surgery Referral Evaluation and Treatment Evaluate AND Treat Status: Hold For - Scheduling,Retrospective Authorization Requested for: [id number] Persistent atrial fibrillation Renew: Sotalol HCl - 80 MG Oral Tablet (Betapace); TAKE 1 TABLET BY MOUTH TWICE DAILY IO EKG Electrocardiogram- 12 Lead; Status:Complete; Done: 13Oct2022 SocHx: Never a smoker Tobacco Use Screening; Status:Complete; Done: [id number] Patient Instructions Please bring all medicines, vitamins, [...] Complaint AUSTIN GOLDEN is being seen for [facility] d/c 09/2022. History of Present Illness Patient [...] Medication fentany (more content not included)... Normal [employer] Tobacco Screening.on 023 Fall risk assessment a) No falls within the last year [facility] [place] [address] DO Work Phone: Tobacco use status CPHS b) No [facility] [place] [address] DO Work Phone: Tobacco Screening. Yes [facility] [address] DO Work Phone: Tobacco Screening.on 023 Fall risk assessment a) No falls within the last year [facility] [place] [address] [place] Work Phone: Tobacco use status CPHS b) No [facility] [place] [address] DO Work Phone: Basophils Auto (Bld) [#/Vol] Ordered By: Katie Dukes on 09-21-2022 Basophils (Bld) [#/Vol] 0.0 10*3/uL 0.0-0.2 [facility] Basophils/100 WBC Auto (Bld) Ordered By: Katie Dukes on 09-21-2022 Basophils/100 WBC (Bld) 0.7 % . [facility] Creatine kinase [Enzymatic a ctivity/volume] in Serum or PlasmaOrdered By: Debbie Mac on 09-21-2022 CK [Catalytic activity/Vol] 76 U/L 22-269 [facility] Creatinine and Glomerular fi ltration rate.predicted panel (S/P/Bld)Ordered By: Katie Dukes on 09-21-2022 Creatinine [Mass/Vol] 1.08 mg/dL 0.44-1.03 [facility] Eosinophils Auto (Bld) [#/Vo l]Ordered By: Katie Dukes on 09-21-2022 Eosinophils (Bld) [#/Vol] 0.3 10*3/uL 0.0-0.45 [facility] Eosinophils/100 WBC Auto (Bl d)Ordered By: Katie Dukes on 09-21-2022 Eosinophils/100 WBC (Bld) 4.6 % . [facility] Erythrocyte distribution wid th Auto (RBC) [Ratio]Ordered By: Katie Dukes on 09-21-2022 Erythrocyte distribution width (RBC) [Ratio] 13.5 % 11.9-15.3 [facility] Estimated glomerular filtrat ion rate (GFR) non- AmericanOrdered By: Katie Dukes on 09-21-2022 GFR/1.73 sq M.predicted among non-blacks MDRD (S/P/Bld) [Vol rate/Area] 49 mL/Min [facility] Hematocrit Auto (Bld) [Volum e fraction]Ordered By: Katie Dukes on 09-21-2022 Hematocrit (Bld) [Volume fraction] 39.6 % 34.0-46.4 [facility] Hemoglobin [Mass/volume] in BloodOrdered By: Katie Dukes on 09-21-2022 Hemoglobin (Bld) [Mass/Vol] 13.0 g/dL 11.8-15.4 [facility] Laboratory - Chemistry and C hemistry - challengeOrdered By: Debbie Mac on 09-21-2022 Natriuretic peptide B (Bld) [Mass/Vol] 203.0 pg/mL 5-100 [facility] Laboratory - Chemistry and C hemistry - challengeOrdered By: Katie Dukes on 09-21-2022 Magnesium [Mass/Vol] 1.8 mg/dL 1.6-2.6 [facility] Leukocytes [#/volume] correc anne marie for nucleated erythrocytes in Blood by Automated counOrdered By: Katie Dukes on 09-21-2022 WBC corrected for nucl RBC Auto (Bld) [#/Vol] 5.7 10*3/uL 3.8-11.6 [facility] Lymphocytes Auto (Bld) [#/Vo l]Ordered By: Katie Dukes on 09-21-2022 Lymphocytes (Bld) [#/Vol] 1.1 10*3/uL 1.00-4.8 [facility] Lymphocytes/100 WBC Auto (Bl d)Ordered By: Katie Dukes on 09-21-2022 Lymphocytes/100 WBC (Bld) 18.9 % . [facility] MCH Auto (RBC) [Entitic mass ]Ordered By: Katie Dukes on 09-21-2022 MCH (RBC) [Entitic mass] 29.6 pg 24.7-34.3 [facility] MCHC Auto (RBC) [Mass/Vol]Or dered By: Katie Dukes on 09-21-2022 MCHC (RBC) [Mass/Vol] 32.9 g/dL 32.0-35.0 [facility] MCV Auto (RBC) [Entitic vol] Ordered By: Katie Dukes on 09-21-2022 MCV (RBC) [Entitic vol] 89.8 fL 80-100 [facility] Monocytes Auto (Bld) [#/Vol] Ordered By: Katie Dukes on 09-21-2022 Monocytes (Bld) [#/Vol] 0.4 10*3/uL 0.0-0.8 [facility] Monocytes/100 WBC Auto (Bld) Ordered By: Katie Dukes on 09-21-2022 Monocytes/100 WBC (Bld) 7.6 % . [facility] Neutrophils Auto (Bld) [#/Vo l]Ordered By: Katie Dukes on 09-21-2022 Neutrophils (Bld) [#/Vol] 3.9 10*3/uL 1.8-7.7 [facility] Neutrophils/100 WBC Auto (Bl d)Ordered By: Katie Dukes on 09-21-2022 Neutrophils/100 WBC (Bld) 68.2 % . [facility] No Panel InformationOrdered By: Katie Dukes on 09-21-2022 Estimated GFR () 59 mL/Min [facility] Comment on above: GFR estimated refere nce range: According to KDOQI guidelines, <60 ml/min/1.73m2 is sufficient to diagnose a patient with chronic kidney disease. Pharmacy Creatinine Clearance (Chem 37.27 [facility] Nucleated erythrocytes [Pres ence] in Blood by Automated countOrdered By: Katie Dukes on 09-21-2022 Nucleated RBC Auto Ql (Bld) 0.0 /100{WBC} 0-0.5 [facility] Platelet mean volume Auto (B ld) [Entitic vol]Ordered By: Katie Dukes on 09-21-2022 Platelet mean volume (Bld) [Entitic vol] 9.5 fL 6.3-10.7 [facility] Platelets Auto (Bld) [#/Vol] Ordered By: Katie Dukes on 09-21-2022 Platelets (Bld) [#/Vol] 173 10*3/uL 150-450 [facility] RBC Auto (Bld) [#/Vol]Ordere d By: Katie Dukes on 09-21-2022 RBC (Bld) [#/Vol] 4.41 10*6/uL 3.60-5.00 [facility] Serum or plasma anion gap de terminationOrdered By: Katie Dukes on 09-21-2022 Anion gap [Moles/Vol] 11.0 mmol/L 6.0-15.0 [facility] Serum or plasma calcium mitch urement (mass/volume)Ordered By: Katie Dukes on 09-21-2022 Calcium [Mass/Vol] 8.6 mg/dL 8.2-10.2 [facility] Serum or plasma chloride carlitos surement (moles/volume)Ordered By: Katie Dukes on 09-21-2022 Chloride [Moles/Vol] 107 mmol/L 95-114 [facility] Serum or plasma creatine kin ase MB (CKMB)/total creatine kinase (CK) ratio by calculaOrdered By: Debbie Mac on 09-21-2022 CK.MB Calc [Catalytic fraction] 2.5 % 0.00-2.50 [facility] Serum or plasma creatine kin ase MB measurement (mass/volume)Ordered By: Debbie Mac on 09-21-2022 CK.MB [Mass/Vol] 1.9 ng/mL 0.6-6.3 [facility] Serum or plasma glucose mitch urement (mass/volume)Ordered By: Katie Dukes on 09-21-2022 Glucose [Mass/Vol] 94 mg/dL 70-100 [facility] Comment on above: ADA recommended refe rence rangeRandom Glucose Reference Range is dependent on time and content of last meal. Glucose of more than 200 mg/dL in a nonstressed, ambulatory subject supports the diagnosis of Diabetes Mellitus. Serum or plasma potassium me asurement (moles/volume)Ordered By: Katie Dukes on 09-21-2022 Potassium [Moles/Vol] 3.9 mmol/L 3.5-5.1 [facility] Serum or plasma sodium measu rement (moles/volume)Ordered By: Katie Dukes on 09-21-2022 Sodium [Moles/Vol] 137 mmol/L 136-146 [facility] Serum or plasma total carbon dioxide measurement (moles/volume)Ordered By: Katie Dukes on 09-21-2022 CO2 [Moles/Vol] 22.9 mmol/L 22.0-30.0 [facility] Serum or plasma urea nitroge n measurement (mass/volume)Ordered By: Katie Dukes on 09-21-2022 Urea nitrogen [Mass/Vol] 18 mg/dL 9-23 [facility] Troponin I.cardiac [Mass/vol ume] in Serum or Plasma by High sensitivity methodOrdered By: Debbie Mac on 09-21-2022 Troponin I.cardiac High sensitivity method [Mass/Vol] 9 pg/mL 0-15 [facility] WBC Auto (Bld) [#/Vol]Ordere d By: Katie Dukes on 09-21-2022 WBC (Bld) [#/Vol] 5.7 10*3/uL 3.8-11.6 [facility] Glucose Glucometer (BldC) [M ass/Vol]Ordered By: Katie Dukes on 09-19-2022 Glucose [Mass/Vol] 93 mg/dL [facility] Comment on above: Random Glucose Refer ence Range is dependent on time and content of last meal. Glucose of more than 200 mg/dL in a nonstressed, ambulatory subject supports the diagnosis of Diabetes Mellitus. No Panel InformationOrdered By: Katie Dukes on 09-19-2022 Bedside Glucose Comment Glu2: cleaned meter [facility] Activated partial thrombopla stin time (aPTT) in platelet poor plasma by coagulation aOrdered By: Indy Rolon on 09-17-2022 aPTT Coag (PPP) [Time] 40.4 s 25.1-36.5 [facility] Automated erythrocytes count in urine sediment (number/area)Ordered By: Indy Rolon on 09-17-2022 RBC Auto (Urine sed) [#/Area] 10-19 [HPF] 0-4 [facility] Automated leukocytes count i n urine sediment (number/area)Ordered By: Indy Rolon on 09-17-2022 WBC Auto (Urine sed) [#/Area] 20-49 [HPF] 0-4 [facility] Automated urine hyaline cast s count (number/volume)Ordered By: Indy Rolon on 09-17-2022 Hyaline casts Auto (U) [#/Vol] 3-4 [LPF] 0-1 [facility] Basophils Auto (Bld) [#/Vol] Ordered By: Indy Rolon on 09-17-2022 Basophils (Bld) [#/Vol] 0.0 10*3/uL 0.0-0.2 [facility] Basophils/100 WBC Auto (Bld) Ordered By: Indy Rolon on 09-17-2022 Basophils/100 WBC (Bld) 0.6 % . [facility] Bilirubin Test strip Ql (U)O rdered By: Indy Rolon on 09-17-2022 Bilirubin Ql (U) Negative Negative [facility] Body fluid albumin measureme nt (mass/volume)Ordered By: Indy Rolon on 09-17-2022 Albumin (Body fld) [Mass/Vol] 4.1 g/dL 3.2-5.5 [facility] Casts typing in urine sedime nt by light microscopyOrdered By: Indy Rolon on 09-17-2022 Casts LM Nom (Urine sed) None seen [LPF] None Seen [facility] Color Auto (U)Ordered By: Jordan Rolon on 09-17-2022 Color (U) Dark yellow Yellow [facility] Creatinine and Glomerular fi ltration rate.predicted panel (S/P/Bld)Ordered By: Indy Rolon on 09-17-2022 Creatinine [Mass/Vol] 1.23 mg/dL 0.44-1.03 [facility] Eosinophils Auto (Bld) [#/Vo l]Ordered By: Indy Rolon on 09-17-2022 Eosinophils (Bld) [#/Vol] 0.3 10*3/uL 0.0-0.45 [facility] Eosinophils/100 WBC Auto (Bl d)Ordered By: Indy Rolon on 09-17-2022 Eosinophils/100 WBC (Bld) 3.5 % . [facility] Erythrocyte distribution wid th Auto (RBC) [Ratio]Ordered By: Indy Rolon on 09-17-2022 Erythrocyte distribution width (RBC) [Ratio] 13.5 % 11.9-15.3 [facility] Estimated glomerular filtrat ion rate (GFR) non- AmericanOrdered By: Indy Rolon on 09-17-2022 GFR/1.73 sq M.predicted among non-blacks MDRD (S/P/Bld) [Vol rate/Area] 42 mL/Min [facility] Globulin Calc (S) [Mass/Vol] Ordered By: Indy Rolon on 09-17-2022 Globulin (S) [Mass/Vol] 2.2 g/dL [facility] Hematocrit Auto (Bld) [Volum e fraction]Ordered By: Indy Rolon on 09-17-2022 Hematocrit (Bld) [Volume fraction] 43.5 % 34.0-46.4 [facility] Hemoglobin [Mass/volume] in BloodOrdered By: Indy Rolon on 09-17-2022 Hemoglobin (Bld) [Mass/Vol] 14.4 g/dL 11.8-15.4 [facility] Ketones Auto test strip (U) [Mass/Vol]Ordered By: Indy Rolon on 09-17-2022 Ketones (U) [Mass/Vol] Trace Negative [facility] Laboratory - Chemistry and C hemistry - challengeOrdered By: Indy Rolon on 09-17-2022 Magnesium [Mass/Vol] 2.1 mg/dL 1.6-2.6 [facility] Natriuretic peptide B (Bld) [Mass/Vol] 292.0 pg/mL 5-100 [facility] Laboratory - CoagulationOrde red By: Indy Rolon on 09-17-2022 PT Coag (PPP) [Time] 23.4 s 9.0-12.9 [facility] Leukocytes [#/volume] correc anne marie for nucleated erythrocytes in Blood by Automated counOrdered By: Indy Rolon on 09-17-2022 WBC corrected for nucl RBC Auto (Bld) [#/Vol] 8.0 10*3/uL 3.8-11.6 [facility] Lymphocytes Auto (Bld) [#/Vo l]Ordered By: Indy Rolon on 09-17-2022 Lymphocytes (Bld) [#/Vol] 1.2 10*3/uL 1.00-4.8 [facility] Lymphocytes/100 WBC Auto (Bl d)Ordered By: Indy Rolon on 09-17-2022 Lymphocytes/100 WBC (Bld) 15.2 % . [facility] MCH Auto (RBC) [Entitic mass ]Ordered By: Indy Rolon on 09-17-2022 MCH (RBC) [Entitic mass] 30.1 pg 24.7-34.3 [facility] MCHC Auto (RBC) [Mass/Vol]Or dered By: Indy Rolon on 09-17-2022 MCHC (RBC) [Mass/Vol] 33.2 g/dL 32.0-35.0 [facility] MCV Auto (RBC) [Entitic vol] Ordered By: Indy Rolon on 09-17-2022 MCV (RBC) [Entitic vol] 90.6 fL 80-100 [facility] Monocyte distribution width [Entitic volume] in Blood by AutomatedOrdered By: Indy Rolon on 09-17-2022 Monocyte distribution width Auto (Bld) [Entitic vol] 19.67 % 0.00-20.00 [facility] Monocytes Auto (Bld) [#/Vol] Ordered By: Indy Rolon on 09-17-2022 Monocytes (Bld) [#/Vol] 0.6 10*3/uL 0.0-0.8 [facility] Monocytes/100 WBC Auto (Bld) Ordered By: Indy Rolon on 09-17-2022 Monocytes/100 WBC (Bld) 7.1 % . [facility] Neutrophils Auto (Bld) [#/Vo l]Ordered By: Indy Rolon on 09-17-2022 Neutrophils (Bld) [#/Vol] 5.9 10*3/uL 1.8-7.7 [facility] Neutrophils/100 WBC Auto (Bl d)Ordered By: Indy Rolon on 09-17-2022 Neutrophils/100 WBC (Bld) 73.6 % . [facility] Nitrite Test strip Ql (U)Ord ered By: Indy Rolon on 09-17-2022 Nitrite Ql (U) Negative Negative [facility] No Panel InformationOrdered By: Indy Rolon on 09-17-2022 Estimated GFR () 51 mL/Min [facility] Comment on above: GFR estimated refere nce range: According to KDOQI guidelines, <60 ml/min/1.73m2 is sufficient to diagnose a patient with chronic kidney disease. Pharmacy Creatinine Clearance (Chem N/A [facility] Nucleated erythrocytes [Pres ence] in Blood by Automated countOrdered By: Indy Rolon on 09-17-2022 Nucleated RBC Auto Ql (Bld) 0.3 /100{WBC} 0-0.5 [facility] Platelet mean volume Auto (B ld) [Entitic vol]Ordered By: Indy Rolon on 09-17-2022 Platelet mean volume (Bld) [Entitic vol] 9.4 fL 6.3-10.7 [facility] Platelet poor plasma interna tional normalized ratio (INR) by coagulation assay (relatOrdered By: Indy Rolon on 09-17-2022 INR Coag (PPP) [Relative time] 2.0 {INR} [facility] Comment on above: INR Therapeutic Rang e [...] 09-17-2022 Platelets (Bld) [#/Vol] 203 10*3/uL 150-450 [facility] Protein Auto test strip (U) [Mass/Vol]Ordered By: Indy Rolon on 09-17-2022 Protein (U) [Mass/Vol] Trace mg/dL Negative [facility] Protein [Mass/volume] in Ser um or PlasmaOrdered By: Indy Rolon on 09-17-2022 Protein [Mass/Vol] 6.3 g/dL 6.1-7.9 [facility] RBC Auto (Bld) [#/Vol]Ordere d By: Indy Rolon on 09-17-2022 RBC (Bld) [#/Vol] 4.80 10*6/uL 3.60-5.00 [facility] Serum or plasma alanine mahmood otransferase measurement without P-5'-P (enzymatic activiOrdered By: Indy Rolon on 09-17-2022 ALT No additional P-5'-P [Catalytic activity/Vol] 20 U/L 10-60 [facility] Serum or plasma albumin/glob ulin mass ratioOrdered By: Indy Rolon on 09-17-2022 Albumin/Globulin [Mass ratio] 1.9 {ratio} [facility] Serum or plasma alkaline mia sphatase measurement (enzymatic activity/volume)Ordered By: Indy Rolon on 09-17-2022 ALP [Catalytic activity/Vol] 79 U/L 32-92 [facility] Serum or plasma anion gap de terminationOrdered By: Indy Rolon on 09-17-2022 Anion gap [Moles/Vol] 14.2 mmol/L 6.0-15.0 [facility] Serum or plasma aspartate am inotransferase measurement (enzymatic activity/volume)Ordered By: Indy Rolon on 09-17-2022 AST [Catalytic activity/Vol] 28 U/L 10-42 [facility] Serum or plasma calcium mitch urement (mass/volume)Ordered By: Indy Rolon on 09-17-2022 Calcium [Mass/Vol] 9.4 mg/dL 8.2-10.2 [facility] Serum or plasma chloride carlitos surement (moles/volume)Ordered By: Indy Rolon on 09-17-2022 Chloride [Moles/Vol] 103 mmol/L 95-114 [facility] Serum or plasma glucose mitch urement (mass/volume)Ordered By: Indy Rolon on 09-17-2022 Glucose [Mass/Vol] 94 mg/dL 70-100 [facility] Comment on above: ADA recommended refe rence rangeRandom Glucose Reference Range is dependent on time and content of last meal. Glucose of more than 200 mg/dL in a nonstressed, ambulatory subject supports the diagnosis of Diabetes Mellitus. Serum or plasma potassium me asurement (moles/volume)Ordered By: Indy Rolon on 09-17-2022 Potassium [Moles/Vol] 4.7 mmol/L 3.5-5.1 [facility] Serum or plasma sodium measu rement (moles/volume)Ordered By: Indy Rolon on 09-17-2022 Sodium [Moles/Vol] 138 mmol/L 136-146 [facility] Serum or plasma total biliru bin measurement (mass/volume)Ordered By: Indy Rolon on 09-17-2022 Bilirubin [Mass/Vol] 1.1 mg/dL 0.3-1.2 [facility] Serum or plasma total carbon dioxide measurement (moles/volume)Ordered By: Indy Rolon on 09-17-2022 CO2 [Moles/Vol] 25.5 mmol/L 22.0-30.0 [facility] Serum or plasma urea nitroge n measurement (mass/volume)Ordered By: Indy Rolon on 09-17-2022 Urea nitrogen [Mass/Vol] 24 mg/dL 9-23 [facility] Specific gravity Auto test s trip (U) [Rel density]Ordered By: Indy Rolon on 09-17-2022 Specific gravity (U) [Rel density] 1.024 1.001-1.03 0 [facility] Squamous epithelial cells de tection in urine sediment by light microscopyOrdered By: Indy Rolon on 09-17-2022 Epithelial cells.squamous LM Ql (Urine sed) 10-19 [HPF] 0-2 [facility] Troponin I.cardiac [Mass/vol ume] in Serum or Plasma by High sensitivity methodOrdered By: Indy Rolon on 09-17-2022 Troponin I.cardiac High sensitivity method [Mass/Vol] 8 pg/mL 0-15 [facility] Urine bacteria detection by automated methodOrdered By: Indy Rolon on 09-17-2022 Bacteria Auto Ql (U) 3+ None Seen [facility] Urine clarity by refractomet ry automatedOrdered By: Indy Rolon on 09-17-2022 Clarity Refractometry automated (U) Cloudy Clear [facility] Urine culture routineOrdered By: Indy Rolon on 09-17-2022 Bacteria identified Cx Nom (U) Escherichia coli [facility] Bacteria identified Cx Nom (U) Escherichia coli [facility] Urine glucose measurement by automated test strip (mass/volume)Ordered By: Indy Rolon on 09-17-2022 Glucose Auto test strip (U) [Mass/Vol] Normal mg/dL Normal [facility] Urine hemoglobin detection b y automated test stripOrdered By: Indy Rolon on 09-17-2022 Hemoglobin Auto test strip Ql (U) Trace Negative [facility] Urine leukocyte esterase det ection by automated test stripOrdered By: Indy Rolon on 09-17-2022 Leukocyte esterase Auto test strip Ql (U) 3+ Negative [facility] Urobilinogen Auto test strip (U) [Mass/Vol]Ordered By: Indy Rolon on 09-17-2022 Urobilinogen (U) [Mass/Vol] Normal mg/dL Normal [facility] WBC Auto (Bld) [#/Vol]Ordere d By: Indy Rolon on 09-17-2022 WBC (Bld) [#/Vol] 8.0 10*3/uL 3.8-11.6 [facility] Yeast detection in urine sed iment by light microscopyOrdered By: Indy Rolon on 09-17-2022 Yeast LM Ql (Urine sed) Rare [HPF] None Seen [facility] pH Auto test strip (U)Ordere d By: Indy Rolon on 09-17-2022 pH (U) 5.5 [pH] 5.0-9.0 [facility] Basophils Auto (Bld) [#/Vol] Ordered By: Jay Ceja on 09-05-2022 Basophils (Bld) [#/Vol] 0.0 10*3/uL 0.0-0.2 [facility] Basophils/100 WBC Auto (Bld) Ordered By: Jay Ceja on 09-05-2022 Basophils/100 WBC (Bld) 0.9 % . [facility] Creatinine and Glomerular fi ltration rate.predicted panel (S/P/Bld)Ordered By: Jay Ceja on 09-05-2022 Creatinine [Mass/Vol] 1.57 mg/dL 0.44-1.03 [facility] Eosinophils Auto (Bld) [#/Vo l]Ordered By: Jay Ceja on 09-05-2022 Eosinophils (Bld) [#/Vol] 0.3 10*3/uL 0.0-0.45 [facility] Eosinophils/100 WBC Auto (Bl d)Ordered By: Jay Ceja on 09-05-2022 Eosinophils/100 WBC (Bld) 4.7 % . [facility] Erythrocyte distribution wid th Auto (RBC) [Ratio]Ordered By: Jay Ceja on 09-05-2022 Erythrocyte distribution width (RBC) [Ratio] 13.8 % 11.9-15.3 [facility] Estimated glomerular filtrat ion rate (GFR) non- AmericanOrdered By: Jay Ceja on 09-05-2022 GFR/1.73 sq M.predicted among non-blacks MDRD (S/P/Bld) [Vol rate/Area] 32 mL/Min [facility] Hematocrit Auto (Bld) [Volum e fraction]Ordered By: Jay Ceja on 09-05-2022 Hematocrit (Bld) [Volume fraction] 42.4 % 34.0-46.4 [facility] Hemoglobin [Mass/volume] in BloodOrdered By: Jay Ceja on 09-05-2022 Hemoglobin (Bld) [Mass/Vol] 14.0 g/dL 11.8-15.4 [facility] Leukocytes [#/volume] correc anne marie for nucleated erythrocytes in Blood by Automated counOrdered By: Jay Ceja on 09-05-2022 WBC corrected for nucl RBC Auto (Bld) [#/Vol] 5.6 10*3/uL 3.8-11.6 [facility] Lymphocytes Auto (Bld) [#/Vo l]Ordered By: Jay Ceja on 09-05-2022 Lymphocytes (Bld) [#/Vol] 1.4 10*3/uL 1.00-4.8 [facility] Lymphocytes/100 WBC Auto (Bl d)Ordered By: Jay Ceja on 09-05-2022 Lymphocytes/100 WBC (Bld) 25.6 % . [facility] MCH Auto (RBC) [Entitic mass ]Ordered By: Jay Ceja on 09-05-2022 MCH (RBC) [Entitic mass] 29.7 pg 24.7-34.3 [facility] MCHC Auto (RBC) [Mass/Vol]Or dered By: Jay Ceja on 09-05-2022 MCHC (RBC) [Mass/Vol] 32.9 g/dL 32.0-35.0 [facility] MCV Auto (RBC) [Entitic vol] Ordered By: Jay Ceja on 09-05-2022 MCV (RBC) [Entitic vol] 90.2 fL 80-100 [facility] Monocytes Auto (Bld) [#/Vol] Ordered By: Jay Ceja on 09-05-2022 Monocytes (Bld) [#/Vol] 0.5 10*3/uL 0.0-0.8 [facility] Monocytes/100 WBC Auto (Bld) Ordered By: Jay Ceja on 09-05-2022 Monocytes/100 WBC (Bld) 9.7 % . [facility] Neutrophils Auto (Bld) [#/Vo l]Ordered By: Jay Ceja on 09-05-2022 Neutrophils (Bld) [#/Vol] 3.3 10*3/uL 1.8-7.7 [facility] Neutrophils/100 WBC Auto (Bl d)Ordered By: Jay Ceja on 09-05-2022 Neutrophils/100 WBC (Bld) 59.1 % . [facility] No Panel InformationOrdered By: Jay Ceja on 09-05-2022 Estimated GFR () 38 mL/Min [facility] Comment on above: GFR estimated refere nce range: According to KDOQI guidelines, <60 ml/min/1.73m2 is sufficient to diagnose a patient with chronic kidney disease. Pharmacy Creatinine Clearance (Chem 24.80 [facility] Nucleated erythrocytes [Pres ence] in Blood by Automated countOrdered By: Jay Ceja on 09-05-2022 Nucleated RBC Auto Ql (Bld) 0.2 /100{WBC} 0-0.5 [facility] Platelet mean volume Auto (B ld) [Entitic vol]Ordered By: Jay Ceja on 09-05-2022 Platelet mean volume (Bld) [Entitic vol] 9.2 fL 6.3-10.7 [facility] Platelets Auto (Bld) [#/Vol] Ordered By: Jay Ceja on 09-05-2022 Platelets (Bld) [#/Vol] 190 10*3/uL 150-450 [facility] RBC Auto (Bld) [#/Vol]Ordere d By: Jay Cjea on 09-05-2022 RBC (Bld) [#/Vol] 4.70 10*6/uL 3.60-5.00 [facility] Serum or plasma anion gap de terminationOrdered By: Jay Ceja on 09-05-2022 Anion gap [Moles/Vol] 11.5 mmol/L 6.0-15.0 [facility] Serum or plasma calcium mitch urement (mass/volume)Ordered By: Jay Ceja on 09-05-2022 Calcium [Mass/Vol] 8.9 mg/dL 8.2-10.2 [facility] Serum or plasma chloride carlitos surement (moles/volume)Ordered By: Jay Ceja on 09-05-2022 Chloride [Moles/Vol] 105 mmol/L 95-114 [facility] Serum or plasma glucose mitch urement (mass/volume)Ordered By: Jay Ceja on 09-05-2022 Glucose [Mass/Vol] 103 mg/dL 70-100 [facility] Comment on above: ADA recommended refe rence rangeRandom Glucose Reference Range is dependent on time and content of last meal. Glucose of more than 200 mg/dL in a nonstressed, ambulatory subject supports the diagnosis of Diabetes Mellitus. Serum or plasma potassium me asurement (moles/volume)Ordered By: Jay Ceja on 09-05-2022 Potassium [Moles/Vol] 4.0 mmol/L 3.5-5.1 [facility] Serum or plasma sodium measu rement (moles/volume)Ordered By: Jay Ceja on 09-05-2022 Sodium [Moles/Vol] 140 mmol/L 136-146 [facility] Serum or plasma total carbon dioxide measurement (moles/volume)Ordered By: Jay Ceja on 09-05-2022 CO2 [Moles/Vol] 27.5 mmol/L 22.0-30.0 [facility] Serum or plasma urea nitroge n measurement (mass/volume)Ordered By: Jay Ceja on 09-05-2022 Urea nitrogen [Mass/Vol] 29 mg/dL 9-23 [facility] WBC Auto (Bld) [#/Vol]Ordere d By: Jay Ceja on 09-05-2022 WBC (Bld) [#/Vol] 5.6 10*3/uL 3.8-11.6 [facility] Glucose mean value [Mass/vol ume] in Blood Estimated from glycated hemoglobinOrdered By: Jay Ceja on 09-02-2022 Average glucose Estimated from glycated hemoglobin (Bld) [Mass/Vol] 117 mg/dL [facility] Hemoglobin A1c percentageOrd ered By: Jay Ceja on 09-02-2022 HbA1c (Bld) [Mass fraction] 5.7 % 4.3-5.6 [facility] Comment on above: Increased risk for d iabetes: 5.7 - 6.4diabetes: >6.4glycemic control for adults with diabetes: <7.0 Laboratory - Chemistry and C hemistry - challengeOrdered By: Jay Ceja on 09-02-2022 Magnesium [Mass/Vol] 1.8 mg/dL 1.6-2.6 [facility] Natriuretic peptide B (Bld) [Mass/Vol] 307.0 pg/mL 5-100 [facility] TSH DL <= 0.005 mIU/L QnOrde red By: Jay Ceja on 09-02-2022 TSH Qn 3.39 m[IU]/L 0.45-5.33 [facility] Troponin I.cardiac [Mass/vol ume] in Serum or Plasma by High sensitivity methodOrdered By: Jay Ceja on 09-02-2022 Troponin I.cardiac High sensitivity method [Mass/Vol] 6 pg/mL 0-15 [facility] Albumin [Mass/volume] in Ser um or PlasmaOrdered By: Luis Lennon on 09-01-2022 Albumin [Mass/Vol] 3.7 g/dL 3.2-5.5 [facility] Automated erythrocytes count in urine sediment (number/area)Ordered By: Luis Lennon on 09-01-2022 RBC Auto (Urine sed) [#/Area] 3-4 [HPF] 0-4 [facility] Automated leukocytes count i n urine sediment (number/area)Ordered By: Luis Lennon on 09-01-2022 WBC Auto (Urine sed) [#/Area] 5-9 [HPF] 0-4 [facility] Basophils Auto (Bld) [#/Vol] Ordered By: Luis Lennon on 09-01-2022 Basophils (Bld) [#/Vol] 0.1 10*3/uL 0.0-0.2 [facility] Basophils/100 WBC Auto (Bld) Ordered By: Luis Lennon on 09-01-2022 Basophils/100 WBC (Bld) 0.8 % . [facility] Bilirubin Test strip Ql (U)O rdered By: Luis Lennon on 09-01-2022 Bilirubin Ql (U) Negative Negative [facility] Color Auto (U)Ordered By: Robert Lennon on 09-01-2022 Color (U) Dark yellow Yellow [facility] Creatinine and Glomerular fi ltration rate.predicted panel (S/P/Bld)Ordered By: Luis Lennon on 09-01-2022 Creatinine [Mass/Vol] 1.14 mg/dL 0.44-1.03 [facility] Eosinophils Auto (Bld) [#/Vo l]Ordered By: Luis Lennon on 09-01-2022 Eosinophils (Bld) [#/Vol] 0.3 10*3/uL 0.0-0.45 [facility] Eosinophils/100 WBC Auto (Bl d)Ordered By: Luis Lennon on 09-01-2022 Eosinophils/100 WBC (Bld) 4.1 % . [facility] Erythrocyte distribution wid th Auto (RBC) [Ratio]Ordered By: Luis Lennon on 09-01-2022 Erythrocyte distribution width (RBC) [Ratio] 14.3 % 11.9-15.3 [facility] Estimated glomerular filtrat ion rate (GFR) non- AmericanOrdered By: Luis Lennon on 09-01-2022 GFR/1.73 sq M.predicted among non-blacks MDRD (S/P/Bld) [Vol rate/Area] 46 mL/Min [facility] Globulin Calc (S) [Mass/Vol] Ordered By: Luis Lennon on 09-01-2022 Globulin (S) [Mass/Vol] 2.2 g/dL [facility] Hematocrit Auto (Bld) [Volum e fraction]Ordered By: Luis Lennon on 09-01-2022 Hematocrit (Bld) [Volume fraction] 43.4 % 34.0-46.4 [facility] Hemoglobin [Mass/volume] in BloodOrdered By: Luis Lennon on 09-01-2022 Hemoglobin (Bld) [Mass/Vol] 13.9 g/dL 11.8-15.4 [facility] Ketones Auto test strip (U) [Mass/Vol]Ordered By: Luis Lennon on 09-01-2022 Ketones (U) [Mass/Vol] Trace Negative [facility] Laboratory - Chemistry and C hemistry - challengeOrdered By: Luis Lennon on 09-01-2022 Natriuretic peptide B (Bld) [Mass/Vol] 445.0 pg/mL 5-100 [facility] Laboratory - UrinalysisOrder ed By: Luis Lennon on 09-01-2022 Hyaline casts LM Ql (Urine sed) 0-8 [LPF] 0-8 [facility] Leukocytes [#/volume] correc anne marie for nucleated erythrocytes in Blood by Automated counOrdered By: Luis Lennon on 09-01-2022 WBC corrected for nucl RBC Auto (Bld) [#/Vol] 8.1 10*3/uL 3.8-11.6 [facility] Lymphocytes Auto (Bld) [#/Vo l]Ordered By: Luis Lennon on 09-01-2022 Lymphocytes (Bld) [#/Vol] 1.1 10*3/uL 1.00-4.8 [facility] Lymphocytes/100 WBC Auto (Bl d)Ordered By: Luis Lennon on 09-01-2022 Lymphocytes/100 WBC (Bld) 13.9 % . [facility] MCH Auto (RBC) [Entitic mass ]Ordered By: Luis Lennon on 09-01-2022 MCH (RBC) [Entitic mass] 29.3 pg 24.7-34.3 [facility] MCHC Auto (RBC) [Mass/Vol]Or dered By: Luis Lennon on 09-01-2022 MCHC (RBC) [Mass/Vol] 32.0 g/dL 32.0-35.[address] [facility] MCV Auto (RBC) [Entitic vol] Ordered By: Luis Lennon on 09-01-2022 MCV (RBC) [Entitic vol] 91.4 fL 80-100 [facility] Monocyte distribution width [Entitic volume] in Blood by AutomatedOrdered By: Luis Lennon on 09-01-2022 Monocyte distribution width Auto (Bld) [Entitic vol] 16.84 % 0.00-20.00 [facility] Monocytes Auto (Bld) [#/Vol] Ordered By: Luis Lennon on 09-01-2022 Monocytes (Bld) [#/Vol] 0.6 10*3/uL 0.0-0.8 [facility] Monocytes/100 WBC Auto (Bld) Ordered By: Luis Lennon on 09-01-2022 Monocytes/100 WBC (Bld) 7.5 % . [facility] Neutrophils Auto (Bld) [#/Vo l]Ordered By: Luis Lennon on 09-01-2022 Neutrophils (Bld) [#/Vol] 5.9 10*3/uL 1.8-7.7 [facility] Neutrophils/100 WBC Auto (Bl d)Ordered By: Luis Lennon on 09-01-2022 Neutrophils/100 WBC (Bld) 73.7 % . [facility] Nitrite Test strip Ql (U)Ord ered By: Luis Lennon on 09-01-2022 Nitrite Ql (U) Negative Negative [facility] No Panel InformationOrdered By: Luis Lennon on 09-01-2022 Estimated GFR () 56 mL/Min [facility] Comment on above: GFR estimated refere nce range: According to KDOQI guidelines, <60 ml/min/1.73m2 is sufficient to diagnose a patient with chronic kidney disease. Pharmacy Creatinine Clearance (Chem 35.69 [facility] Nucleated erythrocytes [Pres ence] in Blood by Automated countOrdered By: Luis Lennon on 09-01-2022 Nucleated RBC Auto Ql (Bld) 0.1 /100{WBC} 0-0.5 [facility] Platelet mean volume Auto (B ld) [Entitic vol]Ordered By: Luis Lennon on 09-01-2022 Platelet mean volume (Bld) [Entitic vol] 9.1 fL 6.3-10.7 [facility] Platelets Auto (Bld) [#/Vol] Ordered By: Luis Lennon on 09-01-2022 Platelets (Bld) [#/Vol] 208 10*3/uL 150-450 [facility] Protein Auto test strip (U) [Mass/Vol]Ordered By: Luis Lennon on 09-01-2022 Protein (U) [Mass/Vol] 30 mg/dL Negative [facility] Protein [Mass/volume] in Ser um or PlasmaOrdered By: Luis Lennon on 09-01-2022 Protein [Mass/Vol] 5.9 g/dL 6.1-7.9 [facility] RBC Auto (Bld) [#/Vol]Ordere d By: Luis Lennon on 09-01-2022 RBC (Bld) [#/Vol] 4.74 10*6/uL 3.60-5.00 [facility] Serum or plasma alanine mahmood otransferase measurement without P-5'-P (enzymatic activiOrdered By: Luis Lennon on 09-01-2022 ALT No additional P-5'-P [Catalytic activity/Vol] 33 U/L 10-60 [facility] Serum or plasma albumin/glob ulin mass ratioOrdered By: Luis Lennon on 09-01-2022 Albumin/Globulin [Mass ratio] 1.7 {ratio} [facility] Serum or plasma alkaline mia sphatase measurement (enzymatic activity/volume)Ordered By: Luis Lennon on 09-01-2022 ALP [Catalytic activity/Vol] 70 U/L 32-92 [facility] Serum or plasma anion gap de terminationOrdered By: Luis eLnnon on 09-01-2022 Anion gap [Moles/Vol] 9.3 mmol/L 6.0-15.0 [facility] Serum or plasma aspartate am inotransferase measurement (enzymatic activity/volume)Ordered By: Luis Lennon on 09-01-2022 AST [Catalytic activity/Vol] 33 U/L 10-42 [facility] Serum or plasma calcium mitch urement (mass/volume)Ordered By: Luis Lennon on 09-01-2022 Calcium [Mass/Vol] 9.0 mg/dL 8.2-10.2 [facility] Serum or plasma chloride carlitos surement (moles/volume)Ordered By: Luis Lennon on 09-01-2022 Chloride [Moles/Vol] 109 mmol/L 95-114 [facility] Serum or plasma glucose mitch urement (mass/volume)Ordered By: Luis Lennon on 09-01-2022 Glucose [Mass/Vol] 95 mg/dL 70-100 [facility] Comment on above: ADA recommended refe rence rangeRandom Glucose Reference Range is dependent on time and content of last meal. Glucose of more than 200 mg/dL in a nonstressed, ambulatory subject supports the diagnosis of Diabetes Mellitus. Serum or plasma potassium me asurement (moles/volume)Ordered By: Luis Lennon on 09-01-2022 Potassium [Moles/Vol] 4.2 mmol/L 3.5-5.1 [facility] Serum or plasma sodium measu rement (moles/volume)Ordered By: Luis Lennon on 09-01-2022 Sodium [Moles/Vol] 138 mmol/L 136-146 [facility] Serum or plasma total biliru bin measurement (mass/volume)Ordered By: Luis Lennon on 09-01-2022 Bilirubin [Mass/Vol] 1.3 mg/dL 0.3-1.2 [facility] Comment on above: Samples from patient s who have taken Naproxen have shown spurious elevation in Total Bilirubin levels. A metabolite of Naproxen, O-desmethylnaproxen, has been shown to interfere with the Jendrassik-Grof method for measuring Total Bilirubin. Serum or plasma total carbon dioxide measurement (moles/volume)Ordered By: Luis Lennon on 09-01-2022 CO2 [Moles/Vol] 23.9 mmol/L 22.0-30.0 [facility] Serum or plasma urea nitroge n measurement (mass/volume)Ordered By: Luis Lennon on 09-01-2022 Urea nitrogen [Mass/Vol] 23 mg/dL 9- [facility] Specific gravity Auto test s trip (U) [Rel density]Ordered By: Luis Lennon on 09-01-2022 Specific gravity (U) [Rel density] 1.022 1.001-1.03 0 [facility] Squamous epithelial cells de tection in urine sediment by light microscopyOrdered By: Luis Lennon on 09-01-2022 Epithelial cells.squamous LM Ql (Urine sed) 5-9 [HPF] 0-2 [facility] Troponin I.cardiac [Mass/vol ume] in Serum or Plasma by High sensitivity methodOrdered By: Luis Lennon on 09-01-2022 Troponin I.cardiac High sensitivity method [Mass/Vol] 7 pg/mL 0-15 [facility] Urine bacteria detection by automated methodOrdered By: Luis Lennon on 09-01-2022 Bacteria Auto Ql (U) None seen None Seen [facility] Urine clarity by refractomet ry automatedOrdered By: Luis Lennon on 09-01-2022 Clarity Refractometry automated (U) Clear Clear [facility] Urine culture routineOrdered By: Luis Lennon on 09-01-2022 Bacteria identified Cx Nom (U) 2 Days [facility] Bacteria identified Cx Nom (U) 2 Days [facility] Urine glucose measurement by automated test strip (mass/volume)Ordered By: Luis Lennon on 09-01-2022 Glucose Auto test strip (U) [Mass/Vol] Normal mg/dL Normal [facility] Urine hemoglobin detection b y automated test stripOrdered By: Luis Lennon on 09-01-2022 Hemoglobin Auto test strip Ql (U) Negative Negative [facility] Urine leukocyte esterase det ection by automated test stripOrdered By: Luis Lennon on 09-01-2022 Leukocyte esterase Auto test strip Ql (U) 2+ Negative [facility] Urobilinogen Auto test strip (U) [Mass/Vol]Ordered By: Luis Lennon on 09-01-2022 Urobilinogen (U) [Mass/Vol] Normal mg/dL Normal [facility] WBC Auto (Bld) [#/Vol]Ordere d By: Luis Lennon on 09-01-2022 WBC (Bld) [#/Vol] 8.1 10*3/uL 3.8-11.6 [facility] pH Auto test strip (U)Ordere d By: Luis Lennon on 09-01-2022 pH (U) 5.5 [pH] 5.0-9.0 [facility] Office Visit (Cardiology)on 06-26-2022 Follow-up visit Diagnoses/Problems [...] Signs Recorded: 26Jun2022 02:26PM Heart Rate71, Apical [id number], LUE, Sitting Vleijvrea11, LUE, Sitting Height4 ft 11 in Srtlmp981 lb BMI Cgeozycceb03.92 kg/m2 BSA Calculated1.69 Tobacco Useb) No Falls Screening (Age 18+)a) No falls within the last year EKG COMPLETED IN OFFICE Physical Exam Constitutional: alert and in no acute distress. Neck: neck is supple, symmetric, trachea midline, no masses and no thyromegaly . Pulmonary: no increased work of breathing or signs of respiratory distress (more content not included)... Normal [facility] Tobacco Screening.on 022 Fall risk assessment a) No falls within the last year [facility] [place] [address] DO Work Phone: Tobacco use status [facility] b) No [facility] [place] [address] DO Work Phone: NM [...] FARRAH LOGAN Date: 2022-05-12 12:48 Normal [facility] Covid-19 PCR ([facility])on SARS-CoV-2 (COVID-19) RNA GUILLERMO+probe Ql (Unsp spec) Not detected Normal NOT DETECTED [facility] Comment on above: Result Comment: This test is not yet approved or cleared by the [place] FDA. When there are no FDA-approved or cleared tests available, and other criteria are met, FDA can make tests available under an emergency access mechanism called an Emergency Use Authorization (EUA). The EUA for this test is supported by the [place] of Health and Human Service's (HHS's) declaration [...] consistent with SARS-CoV-2. Performed By: #### C [facility] #### [facility] [address] [place] [address] Dr. Lori Sutton Office Visit (Cardiology)on 03-10-2022 [...] Weight Tips; Status:Complete - Retrospective Authorization; Done: [id number] Some eating tips that can help you lose weight.; Status:Complete - Retrospective Authorization; Done: [id number] Persistent atrial fibrillation IO EKG Electrocardiogram- 12 Lead; Status:Complete; Done: [id number] SocHx: Never a smoker Tobacco Use Screening; Status:Complete; Done: [id number] Patient Instructions Please bring all medicines, vitamins, [...] the above has been addressed by her spa therapist Dr. Mota. She reports she underwent esophageal [...] tired. Cardiovascular: (more content not included)... Normal [employer] Tobacco Screening.on 022 Fall risk assessment a) No falls within the last year -[facility] [place] [address] [place] Work Phone: Tobacco use status [facility] b) No -[facility] [place] [address] DO Work Phone: Albumin [Mass/volume] in Ser um or PlasmaOrdered By: John Mims on 03-09-2022 Albumin [Mass/Vol] 3.7 g/dL 3.2-5.5 [facility] Basophils Auto (Bld) [#/Vol] Ordered By: John Mims on 03-09-2022 Basophils (Bld) [#/Vol] 0.0 10*3/uL 0.0-0.2 [facility] Basophils/100 WBC Auto (Bld) Ordered By: John Mims on 03-09-2022 Basophils/100 WBC (Bld) 0.7 % . [facility] Blood hemoglobin measurement (mass/volume)Ordered By: John Mims on 03-09-2022 Hemoglobin (Bld) [Mass/Vol] 13.7 g/dL 11.8-15.4 [facility] Blood leukocytes automated c ount (number/volume)Ordered By: John Mims on 03-09-2022 WBC (Bld) [#/Vol] 6.2 10*3/uL 4.5-11.0 [facility] Creatinine and Glomerular fi ltration rate.predicted panel (S/P/Bld)Ordered By: John Mims on 03-09-2022 Creatinine [Mass/Vol] 1.10 mg/dL 0.44-1.03 [facility] Eosinophils Auto (Bld) [#/Vo l]Ordered By: John Mims on 03-09-2022 Eosinophils (Bld) [#/Vol] 0.3 10*3/uL 0.0-0.45 [facility] Eosinophils/100 WBC Auto (Bl d)Ordered By: oJhn Mims on 03-09-2022 Eosinophils/100 WBC (Bld) 4.2 % . [facility] Erythrocyte distribution wid th Auto (RBC) [Ratio]Ordered By: John Mims on 03-09-2022 Erythrocyte distribution width (RBC) [Ratio] 13.3 % 11.9-15.3 [facility] Estimated glomerular filtrat ion rate (GFR) non- AmericanOrdered By: John Mims on 03-09-2022 GFR/1.73 sq M.predicted among non-blacks MDRD (S/P/Bld) [Vol rate/Area] 48 mL/Min [facility] Globulin Calc (S) [Mass/Vol] Ordered By: John Mims on 03-09-2022 Globulin (S) [Mass/Vol] 2.6 g/dL [facility] Hematocrit Auto (Bld) [Volum e fraction]Ordered By: John Mims on 03-09-2022 Hematocrit (Bld) [Volume fraction] 40.9 % 34.0-46.4 [facility] Laboratory - CoagulationOrde red By: John Mims on 03-09-2022 PT Coag (PPP) [Time] 17.6 s 9.0-12.9 [facility] Laboratory - Hematology and Cell countsOrdered By: John Mims on 03-09-2022 Nucleated RBC/100 WBC (Bld) [Ratio] 0.0 % 0-0.5 [facility] Lymphocytes Auto (Bld) [#/Vo l]Ordered By: John Mims on 03-09-2022 Lymphocytes (Bld) [#/Vol] 1.1 10*3/uL 1.00-4.8 [facility] Lymphocytes/100 WBC Auto (Bl d)Ordered By: John Mims on 03-09-2022 Lymphocytes/100 WBC (Bld) 17.2 % . [facility] MCH Auto (RBC) [Entitic mass ]Ordered By: John Mims on 03-09-2022 MCH (RBC) [Entitic mass] 30.8 pg 24.7-34.3 [facility] MCHC Auto (RBC) [Mass/Vol]Or dered By: John Mims on 03-09-2022 MCHC (RBC) [Mass/Vol] 33.4 g/dL 32.0-35.0 [facility] MCV Auto (RBC) [Entitic vol] Ordered By: John Mims on 03-09-2022 MCV (RBC) [Entitic vol] 92.2 fL 80-100 [facility] Monocyte %Ordered By: Letty Mims on 03-09-2022 Monocyte % 24 umol/L 11-35 [facility] Monocytes Auto (Bld) [#/Vol] Ordered By: John Mims on 03-09-2022 Monocytes (Bld) [#/Vol] 0.5 10*3/uL 0.0-0.8 [facility] Monocytes/100 WBC Auto (Bld) Ordered By: John Mims on 03-09-2022 Monocytes/100 WBC (Bld) 7.4 % . [facility] Neutrophils Auto (Bld) [#/Vo l]Ordered By: John Mims on 03-09-2022 Neutrophils (Bld) [#/Vol] 4.4 10*3/uL 1.8-7.7 [facility] Neutrophils/100 WBC Auto (Bl d)Ordered By: John Mims on 03-09-2022 Neutrophils/100 WBC (Bld) 70.5 % . [facility] No Panel InformationOrdered By: John Mims on 03-09-2022 Estimated GFR () 58 mL/Min [facility] Comment on above: GFR estimated refere nce range: According to KDOQI guidelines, <60 ml/min/1.73m2 is sufficient to diagnose a patient with chronic kidney disease. Pharmacy Creatinine Clearance (Chem N/A [facility] Platelet mean volume Auto (B ld) [Entitic vol]Ordered By: John Mims on 03-09-2022 Platelet mean volume (Bld) [Entitic vol] 8.5 fL 6.3-10.7 [facility] Platelet poor plasma interna tional normalized ratio (INR) by coagulation assay (relatOrdered By: John Mims on 03-09-2022 INR Coag (PPP) [Relative time] 1.6 {INR} [facility] Comment on above: INR Therapeutic Rang e [...] 03-09-2022 Platelets (Bld) [#/Vol] 213 10*3/uL 150-450 [facility] Protein [Mass/volume] in Ser um or PlasmaOrdered By: John Mims on 03-09-2022 Protein [Mass/Vol] 6.3 g/dL 6.1-7.9 [facility] RBC Auto (Bld) [#/Vol]Ordere d By: John Mims on 03-09-2022 RBC (Bld) [#/Vol] 4.44 10*6/uL 3.60-5.00 [facility] Serum or plasma alanine mahmood otransferase measurement without P-5'-P (enzymatic activiOrdered By: John Mims on 03-09-2022 ALT No additional P-5'-P [Catalytic activity/Vol] 23 U/L 10-60 [facility] Serum or plasma albumin/glob ulin mass ratioOrdered By: John Mims on 03-09-2022 Albumin/Globulin [Mass ratio] 1.4 {ratio} [facility] Serum or plasma alkaline mia sphatase measurement (enzymatic activity/volume)Ordered By: John Mims on 03-09-2022 ALP [Catalytic activity/Vol] 98 U/L 32-92 [facility] Serum or plasma aspartate am inotransferase measurement (enzymatic activity/volume)Ordered By: John Mims on 03-09-2022 AST [Catalytic activity/Vol] 27 U/L 10-42 [facility] Serum or plasma calcium mitch urement (mass/volume)Ordered By: John Mims on 03-09-2022 Calcium [Mass/Vol] 9.3 mg/dL 8.2-10.2 [facility] Serum or plasma chloride carlitos surement (moles/volume)Ordered By: John Mims on 03-09-2022 Chloride [Moles/Vol] 106 mmol/L 95-114 [facility] Serum or plasma glucose mitch urement (mass/volume)Ordered By: John Mims on 03-09-2022 Glucose [Mass/Vol] 88 mg/dL 70-100 [facility] Comment on above: ADA recommended refe rence range Random Glucose Reference Range is dependent on time and content of last meal. Glucose of more than 200 mg/dL in a nonstressed, ambulatory subject supports the diagnosis of Diabetes Mellitus. Serum or plasma potassium me asurement (moles/volume)Ordered By: John Mims on 03-09-2022 Potassium [Moles/Vol] 4.6 mmol/L 3.5-5.1 [facility] Serum or plasma sodium measu rement (moles/volume)Ordered By: John Mims on 03-09-2022 Sodium [Moles/Vol] 139 mmol/L 136-146 [facility] Serum or plasma total biliru bin measurement (mass/volume)Ordered By: John Mims on 03-09-2022 Bilirubin [Mass/Vol] 0.9 mg/dL 0.3-1.2 [facility] Serum or plasma total carbon dioxide measurement (moles/volume)Ordered By: John Mims on 03-09-2022 CO2 [Moles/Vol] 23.9 mmol/L 22.0-30.0 [facility] Serum or plasma urea nitroge n measurement (mass/volume)Ordered By: John Mims on 03-09-2022 Urea nitrogen [Mass/Vol] 30 mg/dL 9-23 [facility] TSH DL <= 0.005 mIU/L QnOrde red By: John Mims on 03-09-2022 TSH Qn 1.70 m[IU]/L 0.45-5.33 [facility] Thyroxine (T4) free [Mass/vo lume] in Serum or PlasmaOrdered By: John Mims on 03-09-2022 Free T4 [Mass/Vol] 1.37 ng/dL 0.61-1.12 [facility] US SINGLE QUAD RT UPPERon US SINGLE [...] HARDY LIRA Date: 2022-01-25 16:24 Normal [facility] BNPon 01-11-2022 Natriuretic peptide B (Bld) [Mass/Vol] 520.0 pg/mL Normal <=1,800.0 [facility] Comment on above: Performed By: #### B MP, TSH, BNP #### [facility] [address] [place], [place] [address] Dr. Lori Sutton CBC AUTO DIFFon 01-11-2022 BASO # 0.0 103/ul Normal 0.0-0.1 [facility] Comment on above: Performed By: #### C BC ####[facility] [address] [place] [id number]. Lori Sutton Basophils/100 WBC (Bld) 0.5 % Normal 0.2-2.0 [facility] Comment on above: Performed By: #### C BC ####[facility] [address] [place] [id number]. Lori Sutton EO # 0.3 103/ul Normal 0.0-0.7 [facility] Comment on above: Performed By: #### C BC ####[facility] [address] [place] [id number] Sutton Eosinophils/100 WBC (Bld) 3.9 % Normal 0.9-7.0 [facility] Comment on above: Performed By: #### C BC ####[facility] [address] [place] [address]Dr. Lori Sutton Erythrocyte distribution width (RBC) [Ratio] 14.4 % Normal 11.0-15.0 [facility] Comment on above: Performed By: #### C BC ####[facility] [address] [place], [place] [address]Dr. Lori Sutton Hematocrit (Bld) [Volume fraction] 42.0 % Normal 36.0-48.0 [facility] Comment on above: Performed By: #### C BC ####[facility] [address] [place], [place] [address]Dr. Lori Sutton Hemoglobin (Bld) [Mass/Vol] 13.4 g/dL Normal 12.0-16.0 [facility] Comment on above: Performed By: #### C BC ####[facility] [address] [place], [place] [address]Dr. Lori Sutton IG # 0.04 10e3/ul Critically high 0.00-0.03 [facility] Comment on above: Performed By: #### C BC ####[facility] [address] [place], [place] [address]Dr. Lori Sutton IG % 0.5 % Normal 0.0-0.5 [facility] Comment on above: Performed By: #### C BC ####[facility] [address] [place], [place] [address]Dr. Lori Sutton LYMPH # 1.7 103/ul Normal 1.2-3.8 [facility] Comment on above: Performed By: #### C BC ####[facility] [address] [place], [place] [address]Dr. Lori Sutton Lymphocytes/100 WBC (Bld) 21.3 % Normal 20.5-60.0 [facility] Comment on above: Performed By: #### C BC ####[facility] [address] [place], [place] [address]Dr. Lori Sutton MANUAL DIFF REQ NO Normal [facility] Comment on above: Performed By: #### C BC ####[facility] [address] [place] [id number]. Lori Sutton MCH (RBC) [Entitic mass] 30.6 pg Normal 26.7-34.0 [facility] Comment on above: Performed By: #### C BC ####[facility] [address] [place] [address]Dr. Lori Sutton MCHC (RBC) [Mass/Vol] 31.9 g/dL Normal 29.9-35.2 [facility] Comment on above: Performed By: #### C BC ####[facility] [address] [place] [address]Dr. Lori Herman MCV (RBC) [Entitic vol] 95.9 fL Normal 81.0-99.0 [facility] Comment on above: Performed By: #### C BC ####[facility] [address] [place], [place] [address]Dr. Lori Sutton MONO # 0.7 103/ul Normal 0.3-0.8 [facility] [facility] Comment on above: Performed By: #### C BC ####[facility] U[address] [place], [place] [address]Dr. Estephaniaurbano Sutton Monocytes/100 WBC (Bld) 8.5 % Normal 1.7-12.0 [facility] Comment on above: Performed By: #### C BC ####[facility] Edvg[address]fd[address] [place], [place] [address]Dr. Lori Sutton NEUT # 5.2 103/ul Normal 1.4-6.5 [facility] Comment on above: Performed By: #### C BC ####[facility] [address] [place], [place] [address]Dr. Lori Sutton Neutrophils/100 WBC (Bld) 65.3 % Normal 43.0-75.0 [facility] Comment on above: Performed By: #### C BC ####[facility] Uyaouhxzsj[address] [place], [place] [address]Dr. Lori Sutton Platelet mean volume (Bld) [Entitic vol] 10.3 fL Normal 9.5-13.5 [facility] Comment on above: Performed By: #### C BC ####[facility] [address] [place], [place] [address]Sn. Lori Sutton PLT 230 103/ul Normal 150-450 [facility] Comment on above: Performed By: #### C BC ####[facility] [address] [place], [place] [address]Ft. Lori Sutton RBC 4.38 106/ul Normal 4.20-5.40 [facility] Comment on above: Performed By: #### C BC ####[facility] [address] [place], [place] [address]Nj. Lori Sutton WBC 8.0 103/ul Normal 4.0-11.0 [facility] Comment on above: Performed By: #### C BC ####[facility] [address]mr[address] [place], [place] [address]CzMelita Sutton PROF CHEM 8 (BAS METB)on Anion gap [Moles/Vol] 14.3 mmol/L Normal [facility] Comment on above: Performed By: #### B MP, TSH, BNP #### [facility] [address] [address] [address] Lori Sutton Calcium [Mass/Vol] 8.8 mg/dL Normal 8.5-10.1 [facility] Comment on above: Performed By: #### B MP, TSH, BNP #### [facility] [address] [address] [address] Lori Sutton Chloride [Moles/Vol] 103 mmol/L Normal 98-107 [facility] Comment on above: Performed By: #### B MP, TSH, BNP #### [facility] [address] [address] [address] Lori Sutton CO2 [Moles/Vol] 27.5 mmol/L Normal 21.0-32.0 [facility] Comment on above: Performed By: #### B MP, TSH, BNP #### [facility] [address] [address] [address] Lori Sutton Creatinine [Mass/Vol] 1.65 mg/dL Critically high 0.55-1.02 [facility] Comment on above: Performed By: #### B MP, TSH, BNP #### [facility] [address] [place] [address] Dr. Lori Sutton EGFR-AF GIBRALTARIAN 36 mL/min/1.73m2 Critically low >=60 [facility] Comment on above: Performed By: #### B MP, TSH, BNP #### [facility] [address] [place] [address] Dr. Lori Sutton EGFR-NON AF GIBRALTARIAN 30 mL/min/1.73m2 Critically low >=60 [facility] Comment on above: Performed By: #### B MP, TSH, BNP #### [facility] [address] [place] [address] Dr. Lori Sutton Glucose [Mass/Vol] 88 mg/dL Normal 74-106 [facility] Comment on above: Performed By: #### B MP, TSH, BNP #### [facility] [address] [place] [address] Dr. Lori Sutton Potassium [Moles/Vol] 4.8 mmol/L Normal 3.5-5.1 [facility] Comment on above: Performed By: #### B MP, TSH, BNP #### [facility] [address] [place] [address] Dr. Lori Sutton Sodium [Moles/Vol] 140 mmol/L Normal 136-145 [facility] Comment on above: Performed By: #### B MP, TSH, BNP #### [facility] [address] [place] [address] Dr. Lori Sutton Urea nitrogen [Mass/Vol] 46.0 mg/dL Critically high 7.0-18.0 [facility] Comment on above: Performed By: #### B MP, TSH, BNP #### [facility] [address] [place] [address] Dr. Lori Sutton Urea nitrogen/Creatinine [Mass ratio] 27.9 mg/mg Normal [facility] Comment on above: Performed By: #### B MP, TSH, BNP #### [facility] [address] [place] [address] Dr. Lori Sutton TSHon 01-11-2022 TSH 2.012 uIU/mL Normal 0.358-3.74 0 [facility] Comment on above: Performed By: #### B MP, TSH, BNP #### [facility] [address] [address] [address] Lori Sutton TSH RANGE SEE BELOW Normal [facility] Comment on above: Result Comment: <0.3 4 UIU/ml HYPERTHYROID 0.34-5.60 UIU/ml EUTHYROID >5.60 UIU/ml HYPOTHYROID Performed By: #### B MP, TSH, BNP #### [facility] [address] [address] [address] Lori Sutton XR CHEST 2 Von [...] MACARENA MEHTA Date: 2022-01-11 15:14 Normal [facility] COVID-19 Positive/NegativeOr dered By: John Mims on 12-30-2021 SARS-CoV-2 (COVID-19) N gene GUILLERMO+probe Ql (Resp) Negative Negative [facility] Comment on above: Testing for SARS-CoV -2 by RT-PCR This test was developed and its performance characteristics determined by [employer] and validated at the [facility]. This test has not been FDA cleared [...] a) No falls within the last year [facility] 250 DO Work Phone: [phone] Tobacco use status CPHS b) No [facility] 2d2c 250 DO Work Phone: [facility] Screening. Yes [facility] Work Phone: RAD - CT Reporton 10-10-[address] RAD - CT Report [id number]#1.00CD:127 [facility] Tobacco Screening.on 021 Fall risk assessment b) One or more fall s in the last year [facility] 250 DO Work Phone: Tobacco use status CPHS b) No [facility] 2d2c 250 DO Work Phone: RAD - CT Reporton 07-24-2021 RAD - CT Report [id number]#1.00CD:127 [facility] Consent for Procedure/Surger yon 07-22-2021 Consent for Procedure/Surgery [id number]#1.00CD:127 [facility] Ambulatory Clinical Summaryo n 07-21-2021 Ambulatory Clinical Summary {[id number]}CD:61 [id number] [facility] Patient Educationon 07-21-20 Patient Education Urology Kidney [...] these instructions at home: Medicines ? Take ovct-oxk-uxpetzh and prescription medicines only as told by [...] Reviewed: 12/23/2019 Elsevier Patient Education ? 2019 [facility] [facility] Urology Office/Clinic Noteon 07-21-2021 Urology Office/Clinic [...] 07/01/2021. Pt. was seen in consult at [facility]. CT done 06/27/2021 shows left hydronephrosis. 12.5 [...] URWolf In 6 months 01/19/2022 EDT [address] [place] [address]- Additional Instructions: KUB Patient Education Kidney Stones, Zpam-oa-Hgsk Leonor Brown, personally scribed for Dr. Alfonso [...] Tobacco Use:. Never Smokeless Tobacco Use:., 07/21/2021 [facility] Comment on above: Result Comment: Elec tronically Signed By: Byron ALFONSO MD\.br\Date and Time Signed: 07/21/21 15:17 EST\.br\Electronically Co-Signed By: Leonor Rucker.br\Date and Time Co-Signed: 07/21/21 15:12 EST Falls Risk Screeningon 07-06 Fall risk assessment a) No falls within the last year [facility] 250 DO Work Phone: Pathology Noteon 07-06-2021 Pathology Note [id number]#1.00CD:127 [facility] Operative Reporton Operative Report [id number]#1.00CD:127 [facility] RAD - MISCon 07-04-2021 RAD - MISC [id number]#1.00CD:127 Normal [facility] Insurance Correspondence Off iceon 07-01-2021 Insurance Correspondence Office [id number]#1.00CD:127 Normal [facility] Consultation Noteon 06-29-20 Consultation Note [id number]#1.00CD:127 Normal [facility] No Panel Informationon 06-24 [facility] [place] [address] [place] Work Phone: 20.44\S\20.44 Normal [facility] [place] [address] [place] Work Phone: Comment on above: PERFORMED BY:[address] [address] [place], [place] [phone] MEDICAL DIRECTORVITOR ZARATE M.D. 9.0\S\9.0 Normal 8.2-10.2 [facility] [place] [address] [place] Work Phone: [phone] 24.1\S\24.1 Normal 22.0-30.0 [facility] [address] [place] Work Phone: [phone] 103\S\103 Normal 95-114 [facility] [place] [address] [place] Work Phone: [phone] 4.4\S\4.4 Normal 3.5-5.1 [facility] [address] [place] Work Phone: [phone] 138\S\138 Normal 136-146 [facility] [address] [place] Work Phone: [phone] 31\S\31 Normal [facility] [address] [place] Work Phone: Comment on above: GFR estimated refere nce range: According to KDOQI guidelines, <60 ml/min/1.73m2 is sufficient to diagnose a patient with chronic kidney disease. 26\S\26 Normal [facility] [address] [place] Work Phone: [phone] 1.88\S\1.88 above high threshold 0.44-1.03 [facility] [address] [place] Work Phone: \S\34 above high threshold 9-23 [facility] [address] [place] Work Phone: [phone] 130\S\130 above high threshold 70-100 [facility] [address] [place] Work Phone: [phone] Comment on above: Random Glucose Refer ence Range is dependent on time and content of last meal. Glucose of more than 200 mg/dL in a nonstressed, ambulatory subject supports the diagnosis of Diabetes Mellitus. ADA recommended reference range No Panel Informationon 06-23 3+ above high threshold Negative [facility] [address] [place] Work Phone: [phone] Negative Normal Negative [facility] [address] [place] Work Phone: [phone] Normal Normal Normal [facility] [address] [place] Work Phone: \S\30 above high threshold Negative [facility] [address] [place] Work Phone: [phone] None Seen Normal 0-8 [facility] [address] [place] Work Phone: [phone] Comment on above: PERFORMED BY:[facility] [place], [place] [phone] MEDICAL DIRECTORVITOR ZARATE M.D. 4+ above high threshold Negative [facility] [address] [place] Work Phone: [phone] 0-1 Normal 0-2 [facility] [address] [place] Work Phone: [phone] Innumerable above high threshold 0-4 [facility] [address] [place] Work Phone: [phone] Positive above high threshold Negative [facility] [address] [place] Work Phone: [phone] 5.5\S\5.5 Normal 5.0-9.0 -[facility] [place] [address] [place] Work Phone: [phone] 1.015\S\1.015 Normal 1.001-1.03 0 [facility] [address] [place] Work Phone: [phone] Turbid Critically abnormal Clear -[facility] [address] [place] Work Phone: [phone] Yellow Normal Yellow -[facility] [address] [place] Work Phone: [phone] -[facility] [address] [place] Work Phone: [phone] 21\S\21 Normal [facility] [address] [place] Work Phone: [phone] 21.8\S\21.8 below low threshold 23.0-27.0 [facility] [address] [place] Work Phone: [phone] 7.2\S\7.2 Normal 6.6-9.7 [facility] [address] [place] Work Phone: [phone] 95.4\S\95.4 Normal 95.0-100.0 [facility] [address] [place] Work Phone: [phone] -2.7\S\-2.7 Normal -3.0-3.0 [facility] [address] [place] Work Phone: [phone] 20.8\S\20.8 below low threshold 23.0-29.0 [facility] [address] [place] Work Phone: [phone] 76.9\S\76.9 below low threshold 80.0-100.0 -[facility] [address] [place] Work Phone: [phone] 32.1\S\32.1 below low threshold 35.0-45.0 -[facility] [address] [place] Work Phone: [phone] 7.43\S\7.43 Normal 7.35-7.45 [facility] [address] [place] Work Phone: Normal [facility] [address] [place] Work Phone: Comment on above: Critical Value gustafson d on: 06/23/2021 at 13:35PERFORMED BY:[address] [address] [address] [place], [place] [phone] MEDICAL DIRECTORVITOR ZARATE M.D. Right Radial Normal [facility] [address] [place] Work Phone: 24.4\S\24.4 Normal 22.0-30.0 [facility] [address] [place] Work Phone: Comment on above: PERFORMED BY:[facility] [place] [phone] MEDICAL DIRECTORVITOR ZARATE M.D. 104\S\104 Normal 95-114 [facility] [address] [place] Work Phone: 4.4\S\4.4 Normal 3.5-5.1 [facility] [address] [place] Work Phone: 141\S\141 Normal 136-146 [facility] [address] [place] Work Phone: [facility] [address] [place] Work Phone: Radiologyon 06-23-2021 Portable XR Chest Views Normal [facility] [address] [place] Work Phone: BASIC METABOLIC PANELon 07-20 Calcium [Mass/Vol] 8.4 mg/dL Low 8.6-10.3 [facility] Comment on above: Order Comment: No: D o not add to previous draw Pt care Performed By: #### 0 0071 #### [facility] [address] [place] [address], [facility] Chloride [Moles/Vol] 105 mmol/L Normal 98-107 [facility] Comment on above: Order Comment: No: D o not add to previous draw Pt care Performed By: #### 0 0071 #### [facility] [address] [place] [address], [place] CO2 [Moles/Vol] 23 mmol/L Normal 21-31 [facility] Comment on above: Order Comment: No: D o not add to previous draw Pt care Performed By: #### 0 0071 #### [facility] [address] [place] [address], [place] Creatinine [Mass/Vol] 1.14 mg/dL Normal 0.60-1.20 [facility] Comment on above: Order Comment: No: D o not add to previous draw Pt care Performed By: #### 0 0071 #### [facility] [address] [place] [address], [place] GFR/1.73 sq M predicted among blacks MDRD (S/P/Bld) [Vol rate/Area] 56 ml/min/1.73sq m Abnormal >60 [facility] Comment on above: Order Comment: No: D o not add to previous draw Pt care Result Comment: Calc ulation may not be valid for patients over 70 years Performed By: #### 0 0071 #### [facility] [address] [place] [address], [place] GFR/1.73 sq M predicted among non-blacks MDRD (S/P/Bld) [Vol rate/Area] 46 ml/min/1.73sq m Abnormal >60 [facility] Comment on above: Order Comment: No: D o not add to previous draw Pt care Result Comment: Calc ulation may not be valid for patients over 70 years Performed By: #### 0 0071 #### [facility] [address] [place] [address], [place] Glucose [Mass/Vol] 151 mg/dL High 70-100 [facility] Comment on above: Order Comment: No: D o not add to previous draw Pt care Performed By: #### 0 0071 #### [facility] [address] [place] [address], [facility] Potassium [Moles/Vol] 3.9 mmol/L Normal 3.5-5.1 [facility] Comment on above: Order Comment: No: D o not add to previous draw Pt care Performed By: #### 0 0071 #### [facility] [address] [place] [address], [facility] Sodium [Moles/Vol] 139 mmol/L Normal 136-145 [facility] Comment on above: Order Comment: No: D o not add to previous draw Pt care Performed By: #### 0 0071 #### [facility] [address] [place] [address], [facility] Urea nitrogen [Mass/Vol] 14 mg/dL Normal 7-25 [facility] Comment on above: Order Comment: No: D o not add to previous draw Pt care Performed By: #### 0 0071 #### [address] [address], [facility] CTA CHESTon 07-31-2020 CTA CHEST [facility] Department of Radiology [address] [place] [id number] Patient Name: AUSTIN GOLDEN : 1940 Sex: F Age: Race: White Pt. Location: [address] [place] [address] Patient Status: D Ordered Date: 07/31/2020 10:25:00 [...] reports Electronically signed: Drew Rios. Transcribed by: [email or web address], User Resident: SANTO LAZO Electronically Signed by: DREW RIOS @ 08/02/2020 09:34 AM I personally read this/these film(s) with this resident Normal [facility] Comment on above: Order Comment: 12 ho urs post vitamin K administration/pre-procedure warfarin reversal No: Do not add to previous draw PROTHROMBIN TIMEon 0 INR Coag (PPP) [Relative time] 1.10 {INR} Normal 0.91-1.16 [facility] Comment on above: Order Comment: No: D [...] CHEST 1995;108:231S-246S. Performed By: #### 0 0071, [id number] #### [address] [address] [place] [address], [place] PT Coag (PPP) [Time] 14.2 s Normal 12.3-14.8 [facility] Comment on above: Order Comment: No: D o not add to previous draw Result Comment: ALL RESULTS MUST BE INTERPRETED WITH RESPECT TO BLOOD DRAWING ARTIFACT OR DILUTION ERROR OF ANTICOAGULANT AT THE TIME OF SAMPLING. Performed By: #### 0 0071, [address] #### [facility] [address] UFH HEPARIN ASSAYon 07-31-20 20 UNFRACTIONATED HEPARIN 0.32 IU/mL Normal 0.30-0.70 [facility] Comment on above: Result Comment: Aracelis roxaban and Apixaban will interfere with the anti Xa assay used to monitor UFH and LMWH. Performed By: #### 0 0071, 21438 #### [facility] [address] [place] [address], [facility] URINALYSIS REFLEXon 07-31-20 20 Appearance (U) CLOUDY Abnormal CLEAR [facility] Comment on above: Order Comment: No: D o not add to previous draw Performed By: #### 5 3629, [address], 02573 #### [facility] [address] [place] [address], [facility] Bilirubin [Mass/Vol] Negative Normal NEGATIVE [facility] Comment on above: Order Comment: No: D o not add to previous draw Performed By: #### 5 3629, 19962, 20563 #### [facility] [address] [place] [address], [facility] BLOOD LARGE Abnormal NEGATIVE [facility] Comment on above: Order Comment: No: D o not add to previous draw Performed By: #### 5 3629, 61203, 72945 #### [facility] [address] [place] [address], [facility] Color (U) NEGIN Abnormal YELLOW [facility] Comment on above: Order Comment: No: D o not add to previous draw Performed By: #### 5 3629, 93909, 09498 #### [facility] [address] [place] [address], [place] EPIS MANY Abnormal FEW,OCC,NO NE SEEN [facility] Comment on above: Order Comment: No: D o not add to previous draw Performed By: #### 5 3629, 71135, 87956 #### [facility] [address] [place] [address], [place] Glucose [Mass/Vol] Negative Normal NEGATIVE [facility] Comment on above: Order Comment: No: D o not add to previous draw Performed By: #### 5 3629, 25288, 24414 #### [facility] [address] [place] [address], [facility] KETONE Negative Normal NEGATIVE [facility] Comment on above: Order Comment: No: D o not add to previous draw Performed By: #### 5 3629, 57597, 83541 #### [facility] [address] [place] [address], [facility] LEUK GEOFFREY MODERATE Abnormal NEGATIVE [facility] Comment on above: Order Comment: No: D o not add to previous draw Performed By: #### 5 3629, 07035, 21378 #### [facility] [address] [place] [address], [place] MUCUS THREADS FEW Abnormal NONE SEEN [facility] Comment on above: Order Comment: No: D o not add to previous draw Performed By: #### 5 3629, 81396, 10251 #### [facility] [address] [place] [address], [place] Nitrite Ql (U) Positive Abnormal NEGATIVE [facility] Comment on above: Order Comment: No: D o not add to previous draw Performed By: #### 5 3629, 02084, 35454 #### [facility] [address] [place] [address], [place] pH (Bld) 5.0 Normal 5.0-8.0 [facility] Comment on above: Order Comment: No: D o not add to previous draw Performed By: #### 5 3629, 56628, 39875 #### [facility] [address] [place] [address], [facility] Protein (U) [Mass/Vol] 100 mg/dL Abnormal NEGATIVE [facility] Comment on above: Order Comment: No: D o not add to previous draw Performed By: #### 5 3629, 82319, 84044 #### [facility] [address] [place] [address], [facility] RBC (U) [#/Vol] /uL Abnormal NONE SEEN [facility] Comment on above: Order Comment: No: D o not add to previous draw Performed By: #### 5 3629, 96130, 29337 #### [facility] [address] [place] [address], [facility] SPEC GRAV 1.025 High 1.015-1.02 0 [facility] Comment on above: Order Comment: No: D o not add to previous draw Performed By: #### 5 3629, 13021, 05639 #### [facility] [address] [place] [address], [facility] WBC UA >100 Abnormal NONE SEEN [facility] Comment on above: Order Comment: No: D o not add to previous draw Performed By: #### 5 3629, 69342, 08950 #### [facility] [address] [place] [address], [facility] BASIC METABOLIC PANELon 12- Calcium [Mass/Vol] 8.1 mg/dL Low 8.6-10.3 [facility] Comment on above: Order Comment: No: D o not add to previous draw Performed By: #### 0 0071 #### [facility] [address] [place] [id number], [facility] Chloride [Moles/Vol] 108 mmol/L High 98-107 [facility] Comment on above: Order Comment: No: D o not add to previous draw Performed By: #### 0 0071 #### [facility] [address] [place] [address], [place] CO2 [Moles/Vol] 24 mmol/L Normal 21-31 [facility] Comment on above: Order Comment: No: D o not add to previous draw Performed By: #### 0 0071 #### [facility] [address] [place] [address], [place] Creatinine [Mass/Vol] 0.99 mg/dL Normal 0.60-1.20 [facility] Comment on above: Order Comment: No: D o not add to previous draw Performed By: #### 0 0071 #### [facility] [address] [place] [address], [place] GFR/1.73 sq M predicted among blacks MDRD (S/P/Bld) [Vol rate/Area] mL/min/{1.73_m2} Normal >60 [facility] Comment on above: Order Comment: No: D o not add to previous draw Result Comment: Calc ulation may not be valid for patients over 70 years Performed By: #### 0 0071 #### [facility] [address] [place] [address], [place] GFR/1.73 sq M predicted among non-blacks MDRD (S/P/Bld) [Vol rate/Area] 54 ml/min/1.73sq m Abnormal >60 [facility] Comment on above: Order Comment: No: D o not add to previous draw Result Comment: Calc ulation may not be valid for patients over 70 years Performed By: #### 0 0071 #### [facility] [address] [place] [address], [place] Glucose [Mass/Vol] 104 mg/dL High 70-100 [facility] Comment on above: Order Comment: No: D o not add to previous draw Performed By: #### 0 0071 #### [facility] [address] [place] [address], [place] Potassium [Moles/Vol] 3.5 mmol/L Normal 3.5-5.1 [facility] Comment on above: Order Comment: No: D o not add to previous draw Performed By: #### 0 0071 #### [facility] [address] [place] [address], [facility] Sodium [Moles/Vol] 141 mmol/L Normal 136-145 [facility] Comment on above: Order Comment: No: D o not add to previous draw Performed By: #### 0 0071 #### [facility] [address] [place] [address], [facility] Urea nitrogen [Mass/Vol] 17 mg/dL Normal 7-25 [facility] Comment on above: Order Comment: No: D o not add to previous draw Performed By: #### 0 0071 #### [facility] [address] [place], [place] [address] CBC COMPLETE BLOOD COUNTon 09-30-2019 Erythrocyte distribution width (RBC) [Ratio] 17.3 % High 11.5-15.0 [facility] Comment on above: Order Comment: 12 ho urs post vitamin K administration/pre-procedure warfarin reversal No: Do not add to previous draw Performed By: #### 5 [id number] #### [facility] [address] [place] [address], [facility] Hematocrit (Bld) [Volume fraction] 37.7 % Normal 36.0-45.0 [facility] Comment on above: Order Comment: 12 ho urs post vitamin K administration/pre-procedure warfarin reversal No: Do not add to previous draw Performed By: #### 5 [id number] #### [facility] [address] [place] [address], [facility] Hemoglobin (Bld) [Mass/Vol] 12.0 g/dL Normal 12.0-15.0 [facility] Comment on above: Order Comment: 12 ho urs post vitamin K administration/pre-procedure warfarin reversal No: Do not add to previous draw Performed By: #### 5 [id number] #### [facility] [address] [place] [address], [facility] MCH (RBC) [Entitic mass] 29.0 pg Normal 27.0-33.0 [facility] Comment on above: Order Comment: 12 ho urs post vitamin K administration/pre-procedure warfarin reversal No: Do not add to previous draw Performed By: #### 5 [id number] #### [facility] [address] [place] [address], [facility] MCHC (RBC) [Mass/Vol] 31.8 g/dL Low 32.0-35.0 [facility] Comment on above: Order Comment: 12 ho urs post vitamin K administration/pre-procedure warfarin reversal No: Do not add to previous draw Performed By: #### 5 [id number] #### [facility] [address] [place] [address], [facility] MCV (RBC) [Entitic vol] 91.1 fL Normal 82.0-98.0 [facility] Comment on above: Order Comment: 12 ho urs post vitamin K administration/pre-procedure warfarin reversal No: Do not add to previous draw Performed By: #### 5 [id number] #### [facility] [address] [place] [address], [facility] Nucleated RBC/100 WBC (Bld) [Ratio] 0 % Normal 0-0 [facility] Comment on above: Order Comment: 12 ho urs post vitamin K administration/pre-procedure warfarin reversal No: Do not add to previous draw Performed By: #### 5 [id number] #### [facility] [address] [place] [address], [facility] PLAT CNT 233 10*3/uL Normal 150-400 [facility] Comment on above: Order Comment: 12 ho urs post vitamin K administration/pre-procedure warfarin reversal No: Do not add to previous draw Performed By: #### 5 [id number] #### [facility] [address] [place] [address], [facility] RBC (Bld) [#/Vol] 4.14 10*6/uL Normal 3.80-5.00 [facility] Comment on above: Order Comment: 12 ho urs post vitamin K administration/pre-procedure warfarin reversal No: Do not add to previous draw Performed By: #### 5 [id number] #### [facility] [address] [place] [address], [facility] WBC (Bld) [#/Vol] 9.44 10*3/uL Normal 4.00-10.60 [facility] Comment on above: Order Comment: 12 ho urs post vitamin K administration/pre-procedure warfarin reversal No: Do not add to previous draw Performed By: #### 5 [id number] #### [facility] [address] HEMATOCRITon 07-30-2020 Hematocrit (Bld) [Volume fraction] 43.9 % Normal 36.0-45.0 [facility] Comment on above: Order Comment: No: D o not add to previous draw Performed By: #### 5 3629, [id number], [id number] #### [facility] [address] HEMOGLOBINon 07-30-2020 Hemoglobin (Bld) [Mass/Vol] 13.5 g/dL Normal 12.0-15.0 [facility] Comment on above: Order Comment: No: D o not add to previous draw Performed By: #### 5 3629, [id number], 81458 #### [facility] [address] [place] [address], [facility] PROTHROMBIN TIMEon 0 INR Coag (PPP) [Relative time] 1.22 {INR} High 0.91-1.16 [facility] Comment on above: Order Comment: No: D o not add to previous draw Result Comment: [facility] FOR WARFARIN THERAPY -------- [...] CHEST 1995;108:231S-246S. Performed By: #### 0 0071, 83526 #### [facility] [address] PT Coag (PPP) [Time] 15.4 s High 12.3-14.8 [facility] Comment on above: Order Comment: No: D o not add to previous draw Result Comment: ALL RESULTS MUST BE INTERPRETED WITH RESPECT TO BLOOD DRAWING ARTIFACT OR DILUTION ERROR OF ANTICOAGULANT AT THE TIME OF SAMPLING. Performed By: #### 0 0071, [id number] #### [facility] [address] [facility] UFH HEPARIN ASSAYon 07-30-20 20 UNFRACTIONATED HEPARIN 0.45 IU/mL Normal 0.30-0.70 [facility] Comment on above: Result Comment: Aracelis roxaban and Apixaban will interfere with the anti Xa assay used to monitor UFH and LMWH. Performed By: #### 0 0071, 24083 #### [facility] [address] UNFRACTIONATED HEPARIN 0.52 IU/mL Normal 0.30-0.70 [facility] Comment on above: Result Comment: Aracelis roxaban and Apixaban will interfere with the anti Xa assay used to monitor UFH and LMWH. Performed By: #### 0 0071, [id number] #### [facility] [address] [place] [address], [facility] APTTon 07-29-2020 aPTT Coag (Bld) [Time] s Critically high 25.0-35.0 [facility] Comment on above: Result Comment: ALL RESULTS [...] RN @0210 Performed By: #### 0 0071, 73901 #### [facility] [address] [facility] [place] [address], [facility] BASIC METABOLIC PANELon 07-20 Calcium [Mass/Vol] 7.4 mg/dL Low 8.6-10.3 [facility] Comment on above: Order Comment: No: D o not add to previous draw Performed By: #### 0 0071, [id number] #### [facility] [address] [facility] [place] [address], [facility] Chloride [Moles/Vol] 101 mmol/L Normal 98-107 [facility] Comment on above: Order Comment: No: D o not add to previous draw Performed By: #### 0 0071, 63587 #### [facility] [address] [place] [address], [facility] CO2 [Moles/Vol] 24 mmol/L Normal 21-31 [facility] Comment on above: Order Comment: No: D o not add to previous draw Performed By: #### 0 0071, [id number] #### [facility] [address] [place] [address], [facility] Creatinine [Mass/Vol] 1.02 mg/dL Normal 0.60-1.20 [facility] Comment on above: Order Comment: No: D o not add to previous draw Performed By: #### 0 0071, [id number] #### [facility] [address] [place] [address], [facility] GFR/1.73 sq M predicted among blacks MDRD (S/P/Bld) [Vol rate/Area] mL/min/{1.73_m2} Normal >60 [facility] Comment on above: Order Comment: No: D o not add to previous draw Result Comment: Calc ulation may not be valid for patients over 70 years Performed By: #### 0 0071, 14211 #### [facility] [address] [place] [address], [facility] GFR/1.73 sq M predicted among non-blacks MDRD (S/P/Bld) [Vol rate/Area] 53 ml/min/1.73sq m Abnormal >60 [facility] Comment on above: Order Comment: No: D o not add to previous draw Result Comment: Calc ulation may not be valid for patients over 70 years Performed By: #### 0 0071, 85881 #### [facility] [address] [place] [address], [facility] Glucose [Mass/Vol] 314 mg/dL High 70-100 [facility] Comment on above: Order Comment: No: D o not add to previous draw Performed By: #### 0 0071, 99545 #### [facility] [address] [place] [address], [place] Potassium [Moles/Vol] 3.1 mmol/L Low 3.5-5.1 [facility] Comment on above: Order Comment: No: D o not add to previous draw Performed By: #### 0 0071, 16543 #### [facility] [address] [place] [address], [place] Sodium [Moles/Vol] 139 mmol/L Normal 136-145 [facility] Comment on above: Order Comment: No: D o not add to previous draw Performed By: #### 0 0071, 16201 #### [facility] [address] [place] [address], [facility] Urea nitrogen [Mass/Vol] 15 mg/dL Normal 7-25 [facility] Comment on above: Order Comment: No: D o not add to previous draw Performed By: #### 0 0071, 17527 #### [facility] [address] [place] [address], [facility] MAGNESIUM BLOODon 07-29-2020 Magnesium [Mass/Vol] 1.5 mg/dL Low 1.9-2.7 [facility] Comment on above: Order Comment: No: D o not add to previous draw Performed By: #### 0 0071, 39496 #### [facility] [address] [place] [address], [facility] PORTABLE CHEST 1 VIEWon 07-20 PORTABLE CHEST [address] [facility] Department of Radiology [address] [place] [address] [id number] Patient Name: AUSTIN GOLDEN : 1940 Sex: F Age: Race: White Pt. Location: [id number] Patient Status: I Ordered Date: 07/29/2020 8:25:00 [...] atelectasis. Electronically signed: Emmanuel Armas. Transcribed by: [email or web address], User Resident: Electronically Signed by: EMMANUEL ARMAS @ 07/29/2020 09:41 AM [place] [facility] Comment on above: Order Comment: 12 ho urs post vitamin K administration/pre-procedure warfarin reversal No: Do not add to previous draw PROTHROMBIN TIMEon 0 INR Coag (PPP) [Relative time] 1.45 {INR} High 0.91-1.[address] [facility] Comment on [...] CHEST 1995;108:231S-246S. Performed By: #### 0 0071, 63934 #### [facility] [address] [place] [address], [facility] PT Coag (PPP) [Time] 17.7 s High 12.3-14.8 [facility] Comment on above: Order Comment: No: D o not add to previous draw Result Comment: ALL RESULTS MUST BE INTERPRETED WITH RESPECT TO BLOOD DRAWING ARTIFACT OR DILUTION ERROR OF ANTICOAGULANT AT THE TIME OF SAMPLING. Performed By: #### 0 0071, [id number] #### [facility] [address] UFH HEPARIN ASSAYon 07-29-20 20 UNFRACTIONATED HEPARIN 0.89 IU/mL High 0.30-0.70 [facility] Comment on above: Result Comment: [place] roxaban and Apixaban will interfere with the anti Xa assay used to monitor UFH and LMWH. Performed By: #### 0 0071, 36106 #### [facility] [address] UNFRACTIONATED HEPARIN 0.78 IU/mL High 0.30-0.70 [facility] Comment on above: Result Comment: [place] roxaban and Apixaban will interfere with the anti Xa assay used to monitor UFH and LMWH. Performed By: #### 0 0071, 51821 #### [facility] [address] UNFRACTIONATED HEPARIN >1.00 Critically high 0.30-0.70 [facility] Comment on above: Order Comment: 12 ho urs post vitamin K administration/pre-procedure warfarin reversal No: Do not add to previous draw Result Comment: [place] roxaban and Apixaban will interfere with the anti Xa assay used to monitor UFH and LMWH. UFH=1.22 RESULTS CHECKED AND CALLED. ACCURATELY READ BACK BY SAEID RING RN @9972 Performed By: #### 5 6101 #### [facility] [address] BASIC METABOLIC PANELon 12-0 9-2020 Calcium [Mass/Vol] 8.5 mg/dL Low 8.6-10.3 [facility] Comment on above: Order Comment: No: D o not add to previous draw Performed By: #### 0 0071 #### [facility] [address] [place] [address], [facility] Chloride [Moles/Vol] 108 mmol/L High 98-107 [facility] Comment on above: Order Comment: No: D o not add to previous draw Performed By: #### 0 0071 #### [facility] [address] [place] [address], [place] CO2 [Moles/Vol] 24 mmol/L Normal 21-31 [facility] Comment on above: Order Comment: No: D o not add to previous draw Performed By: #### 0 0071 #### [facility] [address] [place] [address], [facility] Creatinine [Mass/Vol] 1.03 mg/dL Normal 0.60-1.20 [facility] Comment on above: Order Comment: No: D o not add to previous draw Performed By: #### 0 0071 #### [facility] [address] [place] [address], [facility] GFR/1.73 sq M predicted among blacks MDRD (S/P/Bld) [Vol rate/Area] mL/min/{1.73_m2} Normal >60 [facility] Comment on above: Order Comment: No: D o not add to previous draw Result Comment: Calc ulation may not be valid for patients over 70 years Performed By: #### 0 0071 #### [facility] [address] [place] [address], [facility] GFR/1.73 sq M predicted among non-blacks MDRD (S/P/Bld) [Vol rate/Area] 52 ml/min/1.73sq m Abnormal >60 [facility] Comment on above: Order Comment: No: D o not add to previous draw Result Comment: Calc ulation may not be valid for patients over 70 years Performed By: #### 0 0071 #### [facility] [address] [place] [address], [place] Glucose [Mass/Vol] 120 mg/dL High 70-100 [facility] Comment on above: Order Comment: No: D o not add to previous draw Performed By: #### 0 0071 #### [facility] [address] [place] [address], [facility] Potassium [Moles/Vol] 3.7 mmol/L Normal 3.5-5.1 [facility] Comment on above: Order Comment: No: D o not add to previous draw Performed By: #### 0 0071 #### [facility] [address] [place] [address], [place] Sodium [Moles/Vol] 141 mmol/L Normal 136-145 [facility] Comment on above: Order Comment: No: D o not add to previous draw Performed By: #### 0 0071 #### [facility] [address] [place] [address], [facility] Urea nitrogen [Mass/Vol] 24 mg/dL Normal 7-25 [facility] Comment on above: Order Comment: No: D o not add to previous draw Performed By: #### 0 0071 #### [facility] [address] [place] [address], [facility] CBC COMPLETE BLOOD COUNTon 1 09-28-2019 Erythrocyte distribution width (RBC) [Ratio] 16.9 % High 11.5-15.0 [facility] Comment on above: Order Comment: 12 ho urs post vitamin K administration/pre-procedure warfarin reversal No: Do not add to previous draw Performed By: #### 5 [id number] #### [facility] [address] [place] [address], [facility] Hematocrit (Bld) [Volume fraction] 40.8 % Normal 36.0-45.0 [facility] Comment on above: Order Comment: 12 ho urs post vitamin K administration/pre-procedure warfarin reversal No: Do not add to previous draw Performed By: #### 5 [id number] #### [facility] [address] [place] [address], [facility] Hemoglobin (Bld) [Mass/Vol] 12.6 g/dL Normal 12.0-15.0 [facility] Comment on above: Order Comment: 12 ho urs post vitamin K administration/pre-procedure warfarin reversal No: Do not add to previous draw Performed By: #### 5 [id number] #### [facility] [address] [place] [address], [facility] MCH (RBC) [Entitic mass] 28.5 pg Normal 27.0-33.0 [facility] Comment on above: Order Comment: 12 ho urs post vitamin K administration/pre-procedure warfarin reversal No: Do not add to previous draw Performed By: #### 5 [id number] #### [facility] [address] [facility] [place] [address], [facility] MCHC (RBC) [Mass/Vol] 30.9 g/dL Low 32.0-35.0 [facility] Comment on above: Order Comment: 12 ho urs post vitamin K administration/pre-procedure warfarin reversal No: Do not add to previous draw Performed By: #### 5 [id number] #### [facility] [address] [place] [address], [facility] MCV (RBC) [Entitic vol] 92.3 fL Normal 82.0-98.0 [facility] Comment on above: Order Comment: 12 ho urs post vitamin K administration/pre-procedure warfarin reversal No: Do not add to previous draw Performed By: #### 5 [id number] #### [facility] [address] [place] [address], [facility] Nucleated RBC/100 WBC (Bld) [Ratio] 1 % High 0-0 [facility] Comment on above: Order Comment: 12 ho urs post vitamin K administration/pre-procedure warfarin reversal No: Do not add to previous draw Performed By: #### 5 [id number] #### [facility] [address] [place] [address], [facility] PLAT CNT 245 10*3/uL Normal 150-400 [facility] Comment on above: Order Comment: 12 ho urs post vitamin K administration/pre-procedure warfarin reversal No: Do not add to previous draw Performed By: #### 5 [id number] #### [facility] [address] [place] [address], [facility] RBC (Bld) [#/Vol] 4.42 10*6/uL Normal 3.80-5.00 [facility] Comment on above: Order Comment: 12 ho urs post vitamin K administration/pre-procedure warfarin reversal No: Do not add to previous draw Performed By: #### 5 [id number] #### [facility] [address] [place] [address], [facility] WBC (Bld) [#/Vol] 9.82 10*3/uL Normal 4.00-10.60 [facility] Comment on above: Order Comment: 12 ho urs post vitamin K administration/pre-procedure warfarin reversal No: Do not add to previous draw Performed By: #### 5 [id number] #### [facility] [address] [place] [address], [facility] CT BRAIN WO CONTRASTon 07-28 CT BRAIN WO CONTRAST [facility] Department of Radiology [address] [place] [id number] Patient Name: AUSTIN GOLDEN : 1940 Sex: F Age: Race: White Pt. Location: [id number] Patient Status: I Ordered Date: 07/28/2020 4:35:00 PM Completed Date: 07/28/2020 04:43 PM Requesting Provider: ABHILASH GO Attending Provider: JELANI SORIA Report Copy To: Signs & Symptoms: stroke alert in quality assurance/r&d lab technician post vira History: stroke alert in quality assurance/r&d lab technician post vira Comments: stroke alert in quality assurance/r&d lab technician post vira Exam: CT BRAIN WO CONTRAST CT BRAIN WO CONTRAST 07/28/2020 4:43 PM CLINICAL INDICATIONS: stroke alert in quality assurance/r&d lab technician post vira TECHNOLOGIST COMMENTS: left sided weakness QUESTION FOR THE RADIOLOGIST: stroke alert in quality assurance/r&d lab technician post vira PROTOCOL: Axial CT images of [...] findings. Electronically signed: Sukhdev Javier. Transcribed by: [email or web address], User Resident: Electronically Signed by: SUKHDEV JAVIER @ 07/28/2020 04:48 PM Normal [facility] Comment on above: Order Comment: 12 ho urs post vitamin K administration/pre-procedure warfarin reversal No: Do not add to previous draw CTA HEADon 07-28-2020 CTA HEAD [facility] Department of Radiology [address] [place] [id number] Patient Name: AUSTIN GOLDEN : 1940 Sex: F Age: Race: White Pt. Location: [id number] Patient Status: I Ordered Date: 07/28/2020 4:35:00 PM Completed Date: 07/28/2020 05:11 PM Requesting Provider: ABHILASH GO Attending Provider: JELANI SORIA Report Copy To: Signs & Symptoms: stroke alert in quality assurance/r&d lab technician post vira History: stroke alert in quality assurance/r&d lab technician post vira Comments: stroke alert in quality assurance/r&d lab technician post vira Exam: CTA HEAD CTA HEAD 07/28/2020 5:11 PM CLINICAL INDICATIONS: stroke alert in quality assurance/r&d lab technician post vira TECHNOLOGIST COMMENTS: post vira stroke alert weakness QUESTION FOR THE RADIOLOGIST: stroke alert in quality assurance/r&d lab technician post vira PROTOCOL: Axial CT angiography images [...] occlusion. Electronically signed: Sukhdev Javier. Transcribed by: [email or web address], User Resident: Electronically Signed by: SUKHDEV JAVIER @ 07/28/2020 05:16 PM Normal [facility] Comment on above: Order Comment: No: D o not add to previous draw CTA NECKon 07-28-2020 CTA NECK [facility] Department of Radiology [address] [place] [id number] Patient Name: AUSTIN GOLDEN : 1940 Sex: F Age: Race: White Pt. Location: [id number] Patient Status: I Ordered Date: 07/28/2020 4:35:00 PM Completed Date: 07/28/2020 05:11 PM Requesting Provider: ABHILASH GO Attending Provider: JELANI SORIA Report Copy To: Signs & Symptoms: stroke alert in quality assurance/r&d lab technician post vira History: stroke alert in quality assurance/r&d lab technician post vira Comments: stroke alert in quality assurance/r&d lab technician post vira Exam: CTA NECK CTA NECK 07/28/2020 5:11 PM CLINICAL INDICATIONS: stroke alert in quality assurance/r&d lab technician post vira TECHNOLOGIST COMMENTS: post vira stroke alert weakness QUESTION FOR THE RADIOLOGIST: stroke alert in quality assurance/r&d lab technician post vira PROTOCOL: Axial CT angiography images were obtained with IV contrast. CONTRAST: TECHNIQUE: Multi-detector CT angiography axial slices of the neck were obtained during intravenous administration of IV contrast material. Sagittal, coronal, and 3-D reconstructions were performed and viewed on a separate workstation. The [place] Symptomatic Carotid Endarterectomy Trial (NASCET) method for [...] achievable Electronically signed: Sukhdev Javier. Transcribed by: [email or web address], User Resident: Electronically Signed by: SUKHDEV JAVIER @ 07/28/2020 05:19 PM Normal [facility] Comment on above: Order Comment: No: D o not add to previous draw Cardiovascular Lab Reporton 07-28-2020 Cardiovascular Lab Report [facility] Patient Name: [facility] Maggy MR #: [id number] Department of Physician: Alfredo Ring MBahman Division of Service Date: 07/28/2020 Cardiology Birthdate: 1940 Adult Cardiovascular Room #: 3AB [id number] [address], [place] [address] Cardiovascular Laboratory Report PROCEDURE PERFORMED: Transesophageal echocardiogram and cardioversion. INDICATION: Atrial fibrillation. FELLOW: Hiwot Owens M.D. PROCEDURE IN DETAIL: An informed consent was obtained from the patient after explaining indications, risks and benefits, and alternatives. The patient understood and agreed and signed the consent form. The patient was brought to the quality assurance/r&d lab technician and transesophageal echocardiogram was performed under [...] Owens MD Date Trans: 07/28/2020 04:12 P/boaz [id number] cc: Jazmin العلي D.O. [address] [place] [phone] Normal [facility] PROTHROMBIN TIMEon 0 INR Coag (PPP) [Relative time] 1.67 {INR} High 0.91-1.16 [facility] Comment on above: Order Comment: No: D [...] CHEST 1995;108:231S-246S. Performed By: #### 0 0071, 92477 #### [facility] [address] PT Coag (PPP) [Time] 19.7 s High 12.3-14.[address] [facility] Comment on above: Order Comment: No: D o not add to previous draw Result Comment: ALL RESULTS MUST BE INTERPRETED WITH RESPECT TO BLOOD DRAWING ARTIFACT OR DILUTION ERROR OF ANTICOAGULANT AT THE TIME OF SAMPLING. Performed By: #### 0 0071, 13303 #### [facility] [address] [facility]. [address] INR Coag (PPP) [Relative time] 1.85 {INR} High 0.91-1.16 [facility] Comment on above: Order Comment: 12 ho [...] 1995;108:231S-246S. Performed By: #### 5 [id number] #### [facility] [address] PT Coag (PPP) [Time] 21.4 s High 12.3-14.8 [facility] Comment on above: Order Comment: 12 ho urs post vitamin K administration/pre-procedure warfarin reversal No: Do not add to previous draw Result Comment: ALL RESULTS MUST BE INTERPRETED WITH RESPECT TO BLOOD DRAWING ARTIFACT OR DILUTION ERROR OF ANTICOAGULANT AT THE TIME OF SAMPLING. Performed By: #### 5 [id number] #### [facility] 3000 [facility]. [address] UFH HEPARIN ASSAYon 07-28-20 20 UNFRACTIONATED HEPARIN >1.00 Critically high 0.30-0.70 [facility] Comment on above: Result Comment: Aracelis roxaban and Apixaban will interfere with the anti Xa assay used to monitor UFH and LMWH. Results called. Accurately read back by Khushbu Shetty RN at 1415. Patient given a bolus of heparin prior to draw, causing elevated heparin levels Performed By: #### 5 [id number] #### [facility] [address] [facility]. [address] UNFRACTIONATED HEPARIN 0.38 IU/mL Normal 0.30-0.70 [facility] Comment on above: Result Comment: Aracelis roxaban and Apixaban will interfere with the anti Xa assay used to monitor UFH and LMWH. Performed By: #### 0 0071, 90980 #### [facility] [address] APTTon 07-27-2020 aPTT Coag (Bld) [Time] 39.6 s High 25.0-35.0 [facility] Comment on above: Order Comment: No: D [...] THIS PURPOSE. Performed By: #### 5 3629, 73113, 23315 #### [facility] [address] [place] [address], [facility] aPTT Coag (Bld) [Time] 47.4 s High 25.0-35.0 [facility] Comment on above: Result Comment: ALL RESULTS [...] PURPOSE. Performed By: #### 5 6101 #### [facility] [address] [place] [address], [facility] LIPID PROFILEon 07-27-2020 Cholesterol [Mass/Vol] 173 mg/dL Normal 120-200 [facility] Comment on above: Result Comment: CHOL ESTEROL REFERENCE RANGE: 20 YEARS AND OLDER CARDIOVASCULAR RISK Less than 200 mg/dl Low Risk 200 to 239 mg/dl Borderline Risk 240 mg/dl and greater High Risk Performed By: #### 5 3629, 91074, 52611 #### [facility] [address] [place] [address], [facility] Cholesterol in HDL [Mass/Vol] 33 mg/dL Normal 23-92 [facility] Comment on above: Result Comment: Slig ht variation in normal range could be due to gender and/or age. HDL CHOLESTEROL REFERENCE RANGE: 20 years and older Cardiovascular Risk > or =60 mg/dL Desirable 40 TO 59 mg/dL Low Risk <40 mg/dL High Risk Performed By: #### 5 362, 88797, 10106 #### [facility] [address] [place] [address], [facility] Cholesterol in LDL [Mass/Vol] 98 mg/dL Normal 0-130 [facility] Comment on above: Result Comment: LDL IS A CALCULATION LDL IS ONLY VALID IF THE TRIG IS LESS THAN 400. Performed By: #### 5 3629, 28751, 02377 #### [facility] [address] [place] [address], [facility] Cholesterol.total/Cho lesterol in HDL [Mass ratio] 5.2 {ratio} High 0.0-4.5 [facility] Comment on above: Performed By: #### 5 362, 23333, 15019 #### [facility] [address] NON-HDL CHOLESTEROL 140 mg/dL Normal [facility] Comment on above: Performed By: #### 5 362, 13649, 72414 #### [facility] [address] Triglyceride [Mass/Vol] 210 mg/dL High 40-149 [facility] Comment on above: Result Comment: TRIG LYCERIDE REFERENCE RANGE: 20 YEARS AND OLDER CARDIOVASCULAR RISK LESS THAN 150 mg/dl LOW RISK 150 TO 199 mg/dl BORDERLINE RISK 200 mg/dl AND GREATER HIGH RISK Performed By: #### 5 362, 95728, 76838 #### [facility] [address] [place] [address], [facility] VLDL CHOL 42 mg/dL High 0-40 [facility] Comment on above: Performed By: #### 5 3629, 82968, 76093 #### [facility] [address] PROTHROMBIN TIMEon 0 INR Coag (PPP) [Relative time] 2.07 {INR} High 0.91-1.16 [facility] Comment on above: Result Comment: ACCC P [...] CHEST 1995;108:231S-246S. Performed By: #### 5 3629, 10150, 78878 #### [facility] [address] PT Coag (PPP) [Time] 23.4 s High 12.3-14.8 [facility] Comment on above: Result Comment: ALL RESULTS MUST BE INTERPRETED WITH RESPECT TO BLOOD DRAWING ARTIFACT OR DILUTION ERROR OF ANTICOAGULANT AT THE TIME OF SAMPLING. Performed By: #### 5 3629, 32828, 45150 #### [facility] 3000 [facility]. [address] INR Coag (PPP) [Relative time] 3.07 {INR} High 0.91-1.16 [facility] Comment on above: Order Comment: 12 ho [...] 1995;108:231S-246S. Performed By: #### 5 6101 #### [facility] [address] PT Coag (PPP) [Time] 32.0 s High 12.3-14.8 [facility] Comment on above: Order Comment: 12 ho urs post vitamin K administration/pre-procedure warfarin reversal No: Do not add to previous draw Result Comment: ALL RESULTS MUST BE INTERPRETED WITH RESPECT TO BLOOD DRAWING ARTIFACT OR DILUTION ERROR OF ANTICOAGULANT AT THE TIME OF SAMPLING. Performed By: #### 5 6101 #### [facility] [address] TROPONIN-Ion 07-27-2020 Troponin I.cardiac [Mass/Vol] 0.01 ng/mL Normal 0.00-0.04 [facility] Comment on above: Order Comment: No: D o not add to previous draw Result Comment: REFE RENCE RANGES: 0.00 - 0.04 ng/ml NORMAL 0.05 - 0.50 ng/ml INDETERMINATE > 0.50 ng/ml CONSISTENT WITH AN M.I. Performed By: #### 5 3389, 30715, 37093 #### [facility] [address] UFH HEPARIN ASSAYon 07-27-20 20 UNFRACTIONATED HEPARIN <0.10 Critically low 0.30-0.70 [facility] Comment on above: Result Comment: [place] roxaban and Apixaban will interfere with the anti Xa assay used to monitor UFH and LMWH. RESULTS CHECKED AND CALLED. ACCURATELY READ BACK BY Saeid Lees RN at 2122. Performed By: #### 5 3629, 37860, 40175 #### [facility] [address] APTTon 07-26-2020 aPTT Coag (Bld) [Time] 44.0 s High 25.0-35.0 [facility] Comment on above: Order Comment: No: D [...] THIS PURPOSE. Performed By: #### 5 3629, 79309, 28754 #### [facility] [address] [facility] [address] BASIC METABOLIC PANELon 12- Calcium [Mass/Vol] 8.4 mg/dL Low 8.6-10.3 [facility] Comment on above: Order Comment: No: D o not add to previous draw Performed By: #### 5 3629, 40079, 83217 #### [facility] [address] [facility] [place] [address], [facility] Chloride [Moles/Vol] 107 mmol/L Normal 98-107 [facility] Comment on above: Order Comment: No: D o not add to previous draw Performed By: #### 5 3629, 17518, 40230 #### [facility] [address] [place] [address], [facility] CO2 [Moles/Vol] 23 mmol/L Normal 21-31 [facility] Comment on above: Order Comment: No: D o not add to previous draw Performed By: #### 5 3629, 72618, 04827 #### [facility] [address] [place] [address], [place] Creatinine [Mass/Vol] 1.00 mg/dL Normal 0.60-1.20 [facility] Comment on above: Order Comment: No: D o not add to previous draw Performed By: #### 5 8039, 11251, 68082 #### [facility] [address] [place] [address], [place] GFR/1.73 sq M predicted among blacks MDRD (S/P/Bld) [Vol rate/Area] mL/min/{1.73_m2} Normal >60 [facility] Comment on above: Order Comment: No: D o not add to previous draw Result Comment: Calc ulation may not be valid for patients over 70 years Performed By: #### 5 909, 47506, 07087 #### [facility] [address] [place] [address], [facility] GFR/1.73 sq M predicted among non-blacks MDRD (S/P/Bld) [Vol rate/Area] 53 ml/min/1.73sq m Abnormal >60 [facility] Comment on above: Order Comment: No: D o not add to previous draw Result Comment: Calc ulation may not be valid for patients over 70 years Performed By: #### 5 242, 51520, 14884 #### [facility] [address] [place] [address], [place] Glucose [Mass/Vol] 144 mg/dL High 70-100 [facility] Comment on above: Order Comment: No: D o not add to previous draw Performed By: #### 5 0839, 49788, 54912 #### [facility] [address] [place] [address], [place] Potassium [Moles/Vol] 3.9 mmol/L Normal 3.5-5.1 [facility] Comment on above: Order Comment: No: D o not add to previous draw Performed By: #### 5 791, 14704, 54459 #### [facility] [address] [place] [address], [facility] Sodium [Moles/Vol] 139 mmol/L Normal 136-145 [facility] Comment on above: Order Comment: No: D o not add to previous draw Performed By: #### 5 3629, 43913, 45865 #### [facility] [address] [place] [id number], [facility] Urea nitrogen [Mass/Vol] 24 mg/dL Normal 7-25 [facility] Comment on above: Order Comment: No: D o not add to previous draw Performed By: #### 5 3629, 68711, 56296 #### [facility] [address] [facility]. [address] BNP (B-TYPE NATRIURETIC PEPT BALTA)on 07-26-2020 Natriuretic peptide B (Bld) [Mass/Vol] 259 pg/mL High 0-100 [facility] Comment on above: Order Comment: No: D o not add to previous draw Result Comment: Give n the appropriate clinical setting a BNP result of >100 pg/mL indicates congestive heart failure. Performed By: #### 5 3629, 93500, 13795 #### [facility] [address] [place] [address], [facility] CBC W/DIFFon 07-26-2020 ABS BASOPHILS 0.1 10*3/uL Normal 0.0-0.2 [facility] Comment on above: Order Comment: 12 ho urs post vitamin K administration/pre-procedure warfarin reversal No: Do not add to previous draw Performed By: #### 5 6101 #### [facility] [address] [facility] [place] [address], [facility] ABS IMM GRANS 0.3 10*3/uL High 0.0-0.2 [facility] Comment on above: Order Comment: 12 ho urs post vitamin K administration/pre-procedure warfarin reversal No: Do not add to previous draw Performed By: #### 5 6101 #### [facility] [address] [place] [address], [place] ABS NEUTROPHILS 5.9 10*3/uL Normal 1.6-7.6 [facility] Comment on above: Order Comment: 12 ho urs post vitamin K administration/pre-procedure warfarin reversal No: Do not add to previous draw Performed By: #### 5 6101 #### [facility] [address] [place] [address], [facility] Basophils/100 WBC (Bld) 0.8 % Normal 0.0-1.0 [facility] Comment on above: Order Comment: 12 ho urs post vitamin K administration/pre-procedure warfarin reversal No: Do not add to previous draw Performed By: #### 5 6101 #### [facility] [address] [place] [address], [facility] Eosinophils (Bld) [#/Vol] 0.4 10*3/uL Normal 0.0-0.5 [facility] Comment on above: Order Comment: 12 ho urs post vitamin K administration/pre-procedure warfarin reversal No: Do not add to previous draw Performed By: #### 5 6101 #### [facility] [address] [place] [address], [facility] Eosinophils/100 WBC (Bld) 3.8 % Normal 0.0-6.0 [facility] Comment on above: Order Comment: 12 ho urs post vitamin K administration/pre-procedure warfarin reversal No: Do not add to previous draw Performed By: #### 5 6101 #### [facility] [address] [place] [address], [facility] Erythrocyte distribution width (RBC) [Ratio] 16.9 % High 11.5-15.0 [facility] Comment on above: Order Comment: 12 ho urs post vitamin K administration/pre-procedure warfarin reversal No: Do not add to previous draw Performed By: #### 5 6101 #### [facility] [address] [place] [address], [facility] Hematocrit (Bld) [Volume fraction] 43.8 % Normal 36.0-45.0 [facility] Comment on above: Order Comment: 12 ho urs post vitamin K administration/pre-procedure warfarin reversal No: Do not add to previous draw Performed By: #### 5 6101 #### [facility] [address] [place] [address], [facility] Hemoglobin (Bld) [Mass/Vol] 13.7 g/dL Normal 12.0-15.0 [facility] Comment on above: Order Comment: 12 ho urs post vitamin K administration/pre-procedure warfarin reversal No: Do not add to previous draw Performed By: #### 5 6101 #### [facility] [address] [facility] [place] [address], [facility] IMMATURE GRANS 3.6 % High 0.0-1.0 [facility] Comment on above: Order Comment: 12 ho urs post vitamin K administration/pre-procedure warfarin reversal No: Do not add to previous draw Performed By: #### 5 6101 #### [facility] [address] [place] [address], [facility] Lymphocytes (Bld) [#/Vol] 2.1 10*3/uL Normal 1.2-4.0 [facility] Comment on above: Order Comment: 12 ho urs post vitamin K administration/pre-procedure warfarin reversal No: Do not add to previous draw Performed By: #### 5 6101 #### [facility] 3000 [place] [id number], [facility] Lymphocytes/100 WBC (Bld) 22.0 % Normal 20.0-45.0 [facility] Comment on above: Order Comment: 12 ho urs post vitamin K administration/pre-procedure warfarin reversal No: Do not add to previous draw Performed By: #### 5 6101 #### [facility] [address] [facility] [place] [address], [facility] MCH (RBC) [Entitic mass] 29.0 pg Normal 27.0-33.0 [facility] Comment on above: Order Comment: 12 ho urs post vitamin K administration/pre-procedure warfarin reversal No: Do not add to previous draw Performed By: #### 5 6101 #### [facility] [address] [place] [address], [facility] MCHC (RBC) [Mass/Vol] 31.3 g/dL Low 32.0-35.0 [facility] Comment on above: Order Comment: 12 ho urs post vitamin K administration/pre-procedure warfarin reversal No: Do not add to previous draw Performed By: #### 5 6101 #### [facility] [address] [place] [address], [facility] MCV (RBC) [Entitic vol] 92.6 fL Normal 82.0-98.0 [facility] Comment on above: Order Comment: 12 ho urs post vitamin K administration/pre-procedure warfarin reversal No: Do not add to previous draw Performed By: #### 5 6101 #### [facility] [address] [place] [address], [facility] Monocytes (Bld) [#/Vol] 0.7 10*3/uL Normal 0.1-1.0 [facility] Comment on above: Order Comment: 12 ho urs post vitamin K administration/pre-procedure warfarin reversal No: Do not add to previous draw Performed By: #### 5 6101 #### [facility] [address] [place] [address], [facility] MONOS 7.5 % Normal 5.0-12.0 [facility] Comment on above: Order Comment: 12 ho urs post vitamin K administration/pre-procedure warfarin reversal No: Do not add to previous draw Performed By: #### 5 6101 #### [facility] [address] [place] [address], [facility] Neutrophils/100 WBC (Bld) 62.3 % Normal 40.0-72.0 [facility] Comment on above: Order Comment: 12 ho urs post vitamin K administration/pre-procedure warfarin reversal No: Do not add to previous draw Performed By: #### 5 6101 #### [facility] [address] [place] [address], [facility] Nucleated RBC/100 WBC (Bld) [Ratio] 1 % High 0-0 [facility] Comment on above: Order Comment: 12 ho urs post vitamin K administration/pre-procedure warfarin reversal No: Do not add to previous draw Performed By: #### 5 6101 #### [facility] [address] [place] [address], [facility] PLAT CNT 296 10*3/uL Normal 150-400 [facility] Comment on above: Order Comment: 12 ho urs post vitamin K administration/pre-procedure warfarin reversal No: Do not add to previous draw Performed By: #### 5 6101 #### [facility] [address] [place] [address], [facility] RBC (Bld) [#/Vol] 4.73 10*6/uL Normal 3.80-5.00 [facility] Comment on above: Order Comment: 12 ho urs post vitamin K administration/pre-procedure warfarin reversal No: Do not add to previous draw Performed By: #### 5 6101 #### [facility] [address] [facility] [place] [address], [facility] WBC (Bld) [#/Vol] 9.48 10*3/uL Normal 4.00-10.60 [facility] Comment on above: Order Comment: 12 ho urs post vitamin K administration/pre-procedure warfarin reversal No: Do not add to previous draw Performed By: #### 5 6101 #### [facility] [address] [facility] [address] CPK-MB PROFILEon 07-26-2020 CK [Catalytic activity/Vol] 24 U/L Low 30-223 [facility] Comment on above: Order Comment: No: D o not add to previous draw Performed By: #### 1 0070, 70785, 05887, 29036, 06564, 17882 #### [facility] [address] [place] [id number], [facility] CK.MB [Mass/Vol] 1.5 ng/mL Normal 0.0-5.0 [facility] Comment on above: Order Comment: No: D o not add to previous draw Result Comment: IF T OTAL CK <200 U/L AND: 1. CKMB IS 5-10 NG/ML----BORDERLINE 2. CKMB IS >10 NG/ML----INDICATIVE OF [place] OR IF TOTAL CK >200 U/L AND CKMB INDEX >1.9----INDICATIVE OF [place] Performed By: #### 1 0070, 33465, 18578, 44685, 63742, 80474 #### [facility] [address] CK.MB [Mass/Vol] 6.3 ng/mL Critically high 0.0-1.9 [facility] Comment on above: Order Comment: No: D o not add to previous draw Performed By: #### 1 0070, 62080, 96693, 05553, 22351, 41877 #### [facility] [address] D DIMER TESTon 07-26-2020 D-DIMER TEST 2.34 mcg/mL FEU High 0.27-0.49 The [facility] Comment on above: Order Comment: No: D o not add to previous draw Result Comment: D-Di ricky values of less than 0.50 ug/ml (FEU) are considered to be a negative predictor of thrombosis. However, the D-Dimer result should be used in conjunction with pretest probability and should not be used alone to diagnose a thrombotic event. Performed By: #### 5 [id number], [id number], [id number] #### [facility] [address] History and Physicalon 07-26 History and Physical MR#: [id number] [facility] Pt. Name: Austin Golden Admitted: 07/26/2020 Date of : 1940 Attending Physician: Jaqueline Quevedo M.D. Room #: [address] [place] [address] Discharge Date: HISTORY AND PHYSICAL CHIEF COMPLAINT: Shortness of breath. HISTORY OF PRESENT ILLNESS: The patient is a 79-year-old female with a past medical history of atrial fibrillation, on Coumadin, fibromyalgia, hypertension, and history of COVID at the beginning of June, presented to [facility] as a direct transfer from [facility] ER. The patient presented to the ER today because of increasing shortness of breath. She states that it especially got worse over the weekends, so she came to the ER for evaluation. In the ER, she was found to be in atrial fibrillation with RVR and cardiology was called, so they requested the patient to be transferred to [facility]. Her initial heart rate was 120 [...] Normal affect and mood. LABORATORY DATA: From [facility] ER shows white blood cells 9.1, hemoglobin [...] and GI prophylaxis. 7. PT, OT, and Poultry Scientist for discharge planning. Electronically Signed by: Jaqueline Quevedo M.D. 07/27/2020 10:46 A Jaqueline Quevedo M.D. Date Dict: 07/26/2020/06:24 P/Jaqueline Quevedo M.D. Date Trans: 07/26/2020 07:50 P/macko [id number] Normal [facility] LIVER BATTERYon 07-26-2020 Albumin [Mass/Vol] 3.4 g/dL Low 3.5-5.7 [facility] Comment on above: Order Comment: No: D o not add to previous draw Performed By: #### 5 [id number], [id number] #### [facility] [address] [place] [address], [place] ALKALINE PHOSPH 82 IU/L Normal 34-104 [facility] Comment on above: Order Comment: No: D o not add to previous draw Performed By: #### 5 [id number], [id number], [id number] #### [facility] [address] [place] [address], [place] ALT [Catalytic activity/Vol] 28 U/L Normal 7-52 [facility] Comment on above: Order Comment: No: D o not add to previous draw Performed By: #### 5 [id number], [id number], [id number] #### [facility] [address] [place] [address], [place] AST [Catalytic activity/Vol] 26 U/L Normal 13-39 [facility] Comment on above: Order Comment: No: D o not add to previous draw Performed By: #### 5 [id number], [id number], [id number] #### [facility] [address] [place] [address], [place] Bilirubin [Mass/Vol] 0.6 mg/dL Normal 0.3-1.0 [facility] Comment on above: Order Comment: No: D o not add to previous draw Performed By: #### 5 [id number], [id number], [id number] #### [facility] [address] [place] [address], [place] Bilirubin.direct [Mass/Vol] 0.2 mg/dL Normal 0.0-0.2 [facility] Comment on above: Order Comment: No: D o not add to previous draw Performed By: #### 5 [id number], 48618, 83382 #### [facility] [address] [place] [address], [facility] Protein [Mass/Vol] 5.8 g/dL Low 6.0-8.3 [facility] Comment on above: Order Comment: No: D o not add to previous draw Performed By: #### 5 [id number], [id number], [id number] #### [facility] [address] [place] [address], [facility] MAGNESIUM BLOODon 07-26-2020 Magnesium [Mass/Vol] 1.8 mg/dL Low 1.9-2.7 [facility] Comment on above: Order Comment: No: D o not add to previous draw Performed By: #### 5 [id number], [id number], [id number] #### [facility] [address] [place] [address], [facility] PHOSPHORUS BLOODon 0 Phosphate [Mass/Vol] 3.4 mg/dL Normal 2.5-5.0 [facility] Comment on above: Order Comment: No: D o not add to previous draw Performed By: #### 5 [id number], [id number], 30607 #### [facility] [address] PROTHROMBIN TIMEon 0 INR Coag (PPP) [Relative time] 3.23 {INR} High 0.91-1.16 [facility] Comment on above: Order Comment: No: D [...] CHEST 1995;[id number]. Performed By: #### 5 [id number], [id number], [id number] #### [facility] [address] [place] [address], [facility] PT Coag (PPP) [Time] 33.3 s High 12.3-14.8 [facility] Comment on above: Order Comment: No: D o not add to previous draw Result Comment: ALL RESULTS MUST BE INTERPRETED WITH RESPECT TO BLOOD DRAWING ARTIFACT OR DILUTION ERROR OF ANTICOAGULANT AT THE TIME OF SAMPLING. Performed By: #### 5 [id number], [id number], [id number] #### [facility] [address] [place] [address], [facility] TROPONIN-Ion 07-26-2020 Troponin I.cardiac [Mass/Vol] 0.01 ng/mL Normal 0.00-0.04 [facility] Comment on above: Order Comment: No: D o not add to previous draw Result Comment: REFE RENCE RANGES: 0.00 - 0.04 ng/ml NORMAL 0.05 - 0.50 ng/ml INDETERMINATE > 0.50 ng/ml CONSISTENT WITH AN M.I. Performed By: #### 5 [id number], [id number], [id number] #### [facility] [address] [place] [address], [facility] Vital Signs Date Time Vital Sign Value Performing Clinician Facility 04-30-2025 16:130400 Body height 149.9 cm Joseph Sepulveda DPM Work Phone: [facility] 04-30-2025 16:13-0400 Body mass index (BMI) [Ratio] 24.44 kg/m2 Joseph Sepulveda DPM Work Phone: [facility] 04-30-2025 16:13-0400 Body weight 54.88 kg Joseph Brown DPM Work Phone: [facility] 04-30-2025 16:13-0400 Respiratory rate 18 /min Joseph Sepulveda DPM Work Phone: [facility] 02-23-2025 15:07-0400 Body mass index (BMI) [Ratio] 26.26 kg/m2 Cristiana Chapa BUSINESS 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-PROPERTY INVESTOR Work Phone: [facility] 02-23-2025 [id number] Body weight 58.97 kg Cristiana Chapa BUSINESS 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-PROPERTY INVESTOR Work Phone: [facility] 02-23-2025 15:07-0400 Diastolic blood pressure 60 mm[Hg] Cristiana Chapa BUSINESS 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-PROPERTY INVESTOR Work Phone: [facility] 02-23-2025 15:07-0400 Heart rate 69 /min Cristiana Meadel BUSINESS 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-PROPERTY INVESTOR Work Phone: [facility] 02-23-2025 15:07-0400 Systolic blood pressure 122 mm[Hg] Cristiana Chapa BUSINESS 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-PROPERTY INVESTOR Work Phone: [facility] 02-12-2025 10:31-0400 Body height 149.9 cm Joseph Sepulveda DPM Work Phone: [facility] 02-12-2025 10:31-0400 Body mass index (BMI) [Ratio] 24.44 kg/m2 Joseph Sepulveda DPM Work Phone: [facility] 02-12-2025 10:31-0400 Body weight 54.88 kg Joseph Brown DPM Work Phone: [facility] 02-12-2025 10:31-0400 Respiratory rate 18 /min Joseph Sepulveda DPM Work Phone: [facility] 01-23-2025 15:02-0400 Body temperature 97.9 [degF] Jazmin Ball DO Work Phone: [facility] 01-23-2025 15:02-0400 Diastolic blood pressure 68 mm[Hg] Jazmin Ball DO Work Phone: [facility] 01-23-2025 15:02-0400 Heart rate 102 /min Jazmin Ball DO Work Phone: [facility] 01-23-2025 15:02-0400 Respiratory rate 18 /min Jazmin Ball DO Work Phone: [facility] 01-23-2025 15:02-0400 SaO2% (BldA) [Mass fraction] 96 % Jazmin Ball DO Work Phone: [facility] 01-23-2025 15:02-0400 Systolic blood pressure 106 mm[Hg] Jazmin Ball DO Work Phone: [facility] 01-23-2025 05:19-0400 Inhaled oxygen flow rate 2 L/min Jazmin Ball DO Work Phone: [facility] 01-23-2025 03:36-0400 Body weight 58.2 kg Jazmin Ball DO Work Phone: [facility] 01-23-2025 00:21-0400 Body height 149.86 cm Jazmin Ball DO Work Phone: [facility] 01-23-2025 00:00-0400 Inhaled oxygen flow rate 2 L/min Jazmin Ball DO Work Phone: [facility] 01-22-2025 23:25-0400 Diastolic blood pressure 63 mm[Hg] Jazmin Ball DO Work Phone: [facility] 01-22-2025 23:25-0400 Heart rate 120 /min Jazmin Ball DO Work Phone: [facility] 01-22-2025 23:25-0400 Respiratory rate 22 /min Jazmin Ball DO Work Phone: [facility] 01-22-2025 23:25-0400 SaO2% (BldA) [Mass fraction] 96 % Jazmin Ball DO Work Phone: [facility] 01-22-2025 23:25-0400 Systolic blood pressure 106 mm[Hg] Jazmin Ball DO Work Phone: [facility] 01-22-2025 18:17-0400 Body temperature 97.7 [degF] Jazmin Ball DO Work Phone: [facility] 01-22-2025 18:15-0400 Body height 149.86 cm Jazmin Ball DO Work Phone: [facility] 01-22-2025 18:15-0400 Body weight 58.7 kg Jazmin Ball DO Work Phone: [facility] 01-21-2025 13:38-0400 Body height 149.86 cm [facility] 01-21-2025 13:38-0400 Body mass index (BMI) [Ratio] 26.5 kg/m2 [facility] 01-21-2025 13:38-0400 Body weight 59.59 kg [facility] 01-21-2025 13:38-0400 Diastolic blood pressure 82 mm[Hg] [facility] 01-21-2025 13:38-0400 Heart rate 116 /min [facility] 01-21-2025 13:38-0400 Respiratory rate 12 /min [facility] 01-21-2025 13:38-0400 SaO2% (BldA) [Mass fraction] 95 % [facility] 01-21-2025 13:38-0400 Systolic blood pressure 135 mm[Hg] [facility] 01-09-2025 14:29-0400 Body height 149.86 cm [facility] 01-09-2025 14:29-0400 Body mass index (BMI) [Ratio] 25.9 kg/m2 [facility] 01-09-2025 14:29-0400 Body weight 58.17 kg [facility] 01-09-2025 14:29-0400 Diastolic blood pressure 82 mm[Hg] [facility] 01-09-2025 14:29-0400 Heart rate 73 /min [facility] 01-09-2025 14:29-0400 Respiratory rate 12 /min [facility] 01-09-2025 14:29-0400 SaO2% (BldA) [Mass fraction] 97 % [facility] 01-09-2025 14:29-0400 Systolic blood pressure 132 mm[Hg] [facility] 12-08-2024 11:14-0400 Diastolic blood pressure 52 mm[Hg] Nigel El MD Work Phone: [facility] 12-08-2024 11:14-0400 Heart rate 95 /min Nigel El MD Work Phone: [facility] 12-08-2024 11:14-0400 Respiratory rate 18 /min Nigel El MD Work Phone: [facility] 12-08-2024 11:14-0400 SaO2% (BldA) [Mass fraction] 95 % Nigel El MD Work Phone: [facility] 12-08-2024 11:14-0400 Systolic blood pressure 126 mm[Hg] Nigel El MD Work Phone: [facility] 12-08-2024 10:52-0400 Body temperature 97.7 [degF] Nigel El MD Work Phone: [facility] 10-23-2024 11:28-0500 Body height 149.9 cm Maxwell Medrano MD Work Phone: [facility] 10-23-2024 11:28-0500 Body mass index (BMI) [Ratio] 27.59 kg/m2 Maxwell Medrano MD Work Phone: [facility] 10-23-2024 11:28-0500 Body weight 61.96 kg Maxwell Medrano MD Work Phone: [facility] 10-23-2024 11:28-0500 Diastolic blood pressure 60 mm[Hg] Maxwell Medrano MD Work Phone: [facility] 10-23-2024 11:28-0500 Heart rate 71 /min Maxwell Medrano MD Work Phone: [facility] 10-23-2024 11:28-0500 Systolic blood pressure 120 mm[Hg] Maxwell Medrano MD Work Phone: [facility] 10-06-2024 15:27-0500 Body height 149.86 cm Jazmin Ball DO Work Phone: [facility] 10-06-2024 15:27-0500 Body mass index (BMI) [Ratio] 26.9 kg/m2 Jazmin Ball DO Work Phone: [facility] 10-06-2024 15:27-0500 Body weight 60.32 kg Jazmin Ball DO Work Phone: [facility] 10-06-2024 15:27-0500 Diastolic blood pressure 74 mm[Hg] Jazmin Ball DO Work Phone: [facility] 10-06-2024 15:27-0500 Heart rate 88 /min Jazmin Ball DO Work Phone: [facility] 10-06-2024 15:27-0500 SaO2% (BldA) [Mass fraction] 97 % Jazmin Ball DO Work Phone: [facility] 10-06-2024 15:27-0500 Systolic blood pressure 122 mm[Hg] Jazmin Ball DO Work Phone: [facility] 09-12-2024 13:30-0500 Diastolic blood pressure 79 mm[Hg] Jazmin Ball DO Work Phone: [facility] 09-12-2024 13:30-0500 Heart rate 112 /min Jazmin Ball DO Work Phone: [facility] 09-12-2024 13:30-0500 Respiratory rate 18 /min Jazmin Ball DO Work Phone: [facility] 09-12-2024 13:30-0500 Systolic blood pressure 125 mm[Hg] Jazmin Ball DO Work Phone: [facility] 09-12-2024 12:34-0500 SaO2% (BldA) [Mass fraction] 92 % Jazmin Ball DO Work Phone: [facility] 09-12-2024 11:17-0500 Body height 149.86 cm Jazmin Ball DO Work Phone: [facility] 09-12-2024 11:17-0500 Body temperature 97.4 [degF] Jazmin Ball DO Work Phone: [facility] 09-12-2024 11:17-0500 Body weight 64.3 kg Jazmin Ball DO Work Phone: [facility] 09-09-2024 15:11-0500 Body height 149.86 cm Jazmin Ball DO Work Phone: [facility] 09-09-2024 15:11-0500 Body mass index (BMI) [Ratio] 29.5 kg/m2 Jazmin Ball DO Work Phone: [facility] 09-09-2024 15:11-0500 Body temperature 97.6 [degF] Jazmin Ball DO Work Phone: [facility] 09-09-2024 15:11-0500 Body weight 66.33 kg Jazmin Ball DO Work Phone: [facility] 09-09-2024 15:11-0500 Diastolic blood pressure 70 mm[Hg] Jazmin Ball DO Work Phone: [facility] 09-09-2024 15:11-0500 Heart rate 108 /min Jazmin Ball DO Work Phone: [facility] 09-09-2024 15:11-0500 SaO2% (BldA) [Mass fraction] 97 % Jazmin Ball DO Work Phone: [facility] 09-09-2024 15:11-0500 Systolic blood pressure 125 mm[Hg] Jazmin Ball DO Work Phone: [facility] 09-05-2024 11:19-0500 Body height 149.9 cm Debbie Mac MD Work Phone: [facility] 09-05-2024 11:19-0500 Body mass index (BMI) [Ratio] 28.48 kg/m2 Debbie Mac MD Work Phone: [facility] 09-05-2024 11:19-0500 Body weight 63.96 kg Debbie Mac MD Work Phone: [facility] 09-05-2024 11:19-0500 Diastolic blood pressure 80 mm[Hg] Debbie Mac MD Work Phone: [facility] 09-05-2024 11:19-0500 Heart rate 112 /min Debbie Mac MD Work Phone: [facility] 09-05-2024 11:19-0500 Systolic blood pressure 112 mm[Hg] Debbie Mac MD Work Phone: [facility] 08-27-2024 14:09-0500 Body height 149.86 cm Jazmin Ball DO Work Phone: [facility] 08-27-2024 14:09-0500 Body mass index (BMI) [Ratio] 28.6 kg/m2 Jazmin Ball DO Work Phone: [facility] 08-27-2024 14:09-0500 Body weight 64.41 kg Jazmin Ball DO Work Phone: [facility] 08-27-2024 14:09-0500 Diastolic blood pressure 79 mm[Hg] Jazmin Ball DO Work Phone: [facility] 08-27-2024 14:09-0500 Heart rate 91 /min Jazmin Ball DO Work Phone: [facility] 08-27-2024 14:09-0500 Respiratory rate 12 /min Jazmin Ball DO Work Phone: [facility] 08-27-2024 14:09-0500 Systolic blood pressure 129 mm[Hg] Jazmin Ball DO Work Phone: [facility] 07-31-2024 11:04-0500 Body height 149.86 cm Jazmin Ball DO Work Phone: [facility] 07-31-2024 11:04-0500 Body mass index (BMI) [Ratio] 29.5 kg/m2 Jazmin Ball DO Work Phone: [facility] 07-31-2024 11:04-0500 Body weight 66.28 kg Jazmin Ball DO Work Phone: [facility] 07-31-2024 11:04-0500 Diastolic blood pressure 82 mm[Hg] Jazmin Ball DO Work Phone: [facility] 07-31-2024 11:04-0500 Heart rate 110 /min Jazmin Ball DO Work Phone: [facility] 07-31-2024 11:04-0500 SaO2% (BldA) [Mass fraction] 98 % Jazmin Ball DO Work Phone: [facility] 07-31-2024 11:04-0500 Systolic blood pressure 132 mm[Hg] Jazmin Ball DO Work Phone: [facility] 07-28-2024 11:58-0500 Body height 152.4 cm Maxwell Medrano MD Work Phone: [facility] 07-28-2024 11:58-0500 Body mass index (BMI) [Ratio] 28.16 kg/m2 Maxwell Medrano MD Work Phone: [facility] 07-28-2024 11:58-0500 Body weight 65.41 kg Maxwell Medrano MD Work Phone: [facility] 07-28-2024 11:58-0500 Diastolic blood pressure 74 mm[Hg] Maxwell Medrano MD Work Phone: [facility] 07-28-2024 11:58-0500 Heart rate 84 /min Maxwell Medrano MD Work Phone: [facility] 07-28-2024 11:58-0500 Systolic blood pressure 112 mm[Hg] Maxwell Medrano MD Work Phone: [facility] 07-24-2024 08:08-0500 Diastolic blood pressure 67 mm[Hg] Jazmin Ball DO Work Phone: [facility] 07-24-2024 08:08-0500 Heart rate 92 /min Jazmin Ball DO Work Phone: [facility] 07-24-2024 08:08-0500 Respiratory rate 18 /min Jazmin Ball DO Work Phone: [facility] 07-24-2024 08:08-0500 SaO2% (BldA) [Mass fraction] 93 % Jazmin Ball DO Work Phone: [facility] 07-24-2024 08:08-0500 Systolic blood pressure 124 mm[Hg] Jazmin Ball DO Work Phone: [facility] 07-24-2024 06:00-0500 Body weight 67.1 kg Jazmin Ball DO Work Phone: [facility] 07-24-2024 04:00-0500 Inhaled oxygen flow rate 2 L/min Jazmin Ball DO Work Phone: [facility] 07-23-2024 20:00-0500 Body temperature 98.3 [degF] Jazmin Ball DO Work Phone: [facility] 07-21-2024 21:34-0500 Body height 149.86 cm Jazmin Ball DO Work Phone: [facility] 07-09-2024 14:59-0500 Body height 149.86 cm Jazmin Ball DO Work Phone: [facility] 07-09-2024 14:59-0500 Body mass index (BMI) [Ratio] 29.1 kg/m2 Jazmin Ball DO Work Phone: [facility] 07-09-2024 14:59-0500 Body weight 65.48 kg Jazmin Ball DO Work Phone: [facility] 07-09-2024 14:59-0500 Diastolic blood pressure 82 mm[Hg] Jazmin Ball DO Work Phone: [facility] 07-09-2024 14:59-0500 Heart rate 101 /min Jazmin Ball DO Work Phone: [facility] 07-09-2024 14:59-0500 Respiratory rate 12 /min Jazmin Ball DO Work Phone: [facility] 07-09-2024 14:59-0500 Systolic blood pressure 138 mm[Hg] Jazmin Ball DO Work Phone: [facility] 07-03-2024 12:00-0500 Diastolic blood pressure 95 mm[Hg] Jazmin Ball DO Work Phone: [facility] 07-03-2024 12:00-0500 Heart rate 73 /min Jazmin Ball DO Work Phone: [facility] 07-03-2024 12:00-0500 Respiratory rate 16 /min Jazmin Ball DO Work Phone: [facility] 07-03-2024 12:00-0500 SaO2% (BldA) [Mass fraction] 95 % Jazmin Ball DO Work Phone: [facility] 07-03-2024 12:00-0500 Systolic blood pressure 149 mm[Hg] Jazmin Ball DO Work Phone: [facility] 07-03-2024 08:00-0500 Body temperature 97.6 [degF] Jazmin Ball DO Work Phone: [facility] 07-03-2024 08:00-0500 Inhaled oxygen flow rate 2 L/min Jazmin Ball DO Work Phone: [facility] 07-03-2024 04:50-0500 Body weight 71 kg Jazmin Ball DO Work Phone: [facility] 06-30-2024 18:56-0500 Body height 149.86 cm Jazmin Ball DO Work Phone: [facility] 06-30-2024 18:56-0500 Body temperature 97.8 [degF] Jazmin Ball DO Work Phone: [facility] 06-30-2024 18:56-0500 Body weight 63.5 kg Jazmin Ball DO Work Phone: [facility] 06-30-2024 18:56-0500 Diastolic blood pressure 80 mm[Hg] Jazmin Ball DO Work Phone: [facility] 06-30-2024 18:56-0500 Heart rate 90 /min Jazmin Ball DO Work Phone: [facility] 06-30-2024 18:56-0500 Respiratory rate 20 /min Jazmin Ball DO Work Phone: [facility] 06-30-2024 18:56-0500 SaO2% (BldA) [Mass fraction] 96 % Jazmin Ball DO Work Phone: [facility] 06-30-2024 18:56-0500 Systolic blood pressure 121 mm[Hg] Jazmin Ball DO Work Phone: [facility] 06-10-2024 15:20-0400 Body height 149.86 cm DO Jazmin Ball Work Phone: [facility] 06-10-2024 15:20-0400 Body mass index (BMI) [Ratio] 29.2 kg/m2 DO Jazmin Ball Work Phone: [facility] 06-10-2024 15:20-0400 Body weight 65.54 kg DO Jazmin Ball Work Phone: [facility] 06-10-2024 15:20-0400 Diastolic blood pressure 84 mm[Hg] DO Jazmin Ball Work Phone: [facility] 06-10-2024 15:20-0400 Heart rate 91 /min DO Jazmin Ball Work Phone: [facility] 06-10-2024 15:20-0400 Respiratory rate 20 /min DO Jazmin Ball Work Phone: [facility] 06-10-2024 15:20-0400 Systolic blood pressure 149 mm[Hg] DO Jazmin العلي Work Phone: [facility] 06-05-2024 12:58-0400 Body height 152.4 cm Maxwell Medrano MD Work Phone: [facility] 06-05-2024 12:58-0400 Body mass index (BMI) [Ratio] 28.63 kg/m2 Maxwell Medrano MD Work Phone: [facility] 06-05-2024 12:58-0400 Body weight 66.5 kg Maxwell Medrano MD Work Phone: [facility] 06-05-2024 12:58-0400 Diastolic blood pressure 64 mm[Hg] Maxwell Medrano MD Work Phone: [facility] 06-05-2024 12:58-0400 Systolic blood pressure 126 mm[Hg] Maxwell Medrano MD Work Phone: [facility] 05-29-2024 13:46-0400 Diastolic blood pressure 64 mm[Hg] Katie Yung MD Work Phone: [facility] 05-29-2024 13:46-0400 Heart rate 93 /min Katie Yung MD Work Phone: [facility] 05-29-2024 13:46-0400 Respiratory rate 17 /min Katie Yung MD Work Phone: [facility] 05-29-2024 13:46-0400 SaO2% (BldA) [Mass fraction] 100 % [facility] 05-29-2024 13:46-0400 Systolic blood pressure 119 mm[Hg] Katie Yung MD Work Phone: [facility] 05-29-2024 13:20-0400 Body temperature 96.49 [degF] Katie Yung MD Work Phone: [facility] 05-19-2024 09:24-0400 Body height 149.86 cm DO Jazmin Ball Work Phone: [facility] [facility] 05-19-2024 09:24-0400 Body mass index (BMI) [Ratio] 29.8 kg/m2 DO Jazmin Ball Work Phone: [facility] 05-19-2024 09:24-0400 Body weight 67 kg DO Jazmin Ball Work Phone: [facility] 05-08-2024 11:58-0400 Body height 149.86 cm DO Jazmin Ball Work Phone: [facility] 05-08-2024 11:58-0400 Body mass index (BMI) [Ratio] 29.7 kg/m2 DO Jazmin Ball Work Phone: [facility] 05-08-2024 11:58-0400 Body weight 66.84 kg DO Jazmin Ball Work Phone: [facility] 05-08-2024 11:58-0400 Diastolic blood pressure 82 mm[Hg] DO Jazmin Ball Work Phone: [facility] 05-08-2024 11:58-0400 Heart rate 88 /min DO Jazmin Ball Work Phone: [facility] 05-08-2024 11:58-0400 Respiratory rate 20 /min DO Jazmin Ball Work Phone: [facility] 05-08-2024 11:58-0400 SaO2% (BldA) [Mass fraction] 96 % DO Jazmin Ball Work Phone: [facility] 05-08-2024 11:58-0400 Systolic blood pressure 134 mm[Hg] DO Jazmin Ball Work Phone: [facility] 04-28-2024 11:55-0400 Body height 152.4 cm Maxwell Medrano MD Work Phone: [facility] 04-28-2024 11:55-0400 Diastolic blood pressure 70 mm[Hg] Maxwell Medrano MD Work Phone: [facility] 04-28-2024 11:55-0400 Heart rate 88 /min Maxwell Medrano MD Work Phone: [facility] 04-28-2024 11:55-0400 Systolic blood pressure 110 mm[Hg] Maxwell Medrano MD Work Phone: [facility] 04-24-2024 15:33-0400 Body height 152.4 cm Debbie Mac MD Work Phone: [facility] 04-24-2024 15:33-0400 Body mass index (BMI) [Ratio] 28.32 kg/m2 Debbie Mac MD Work Phone: [facility] 04-24-2024 15:33-0400 Body weight 65.77 kg Debbie Mac MD Work Phone: [facility] 04-24-2024 15:33-0400 Diastolic blood pressure 80 mm[Hg] Debbie Mac MD Work Phone: [facility] 04-24-2024 15:33-0400 Heart rate 114 /min Debbie Mac MD Work Phone: [facility] 04-24-2024 15:33-0400 Systolic blood pressure 112 mm[Hg] Debbie Mac MD Work Phone: [facility] 04-18-2024 10:09-040 Body height 149.86 cm DO Jazmin Ball Work Phone: [facility] 04-18-2024 10:090400 Body mass index (BMI) [Ratio] 28.8 kg/m2 DO Jazmin Ball Work Phone: [facility] 04-18-2024 10:[id number] Body weight 64.86 kg DO Jazmin Ball Work Phone: [facility] 04-18-2024 10:09-040 Diastolic blood pressure 77 mm[Hg] DO Jazmin Ball Work Phone: [facility] 04-18-2024 10:09-0400 Heart rate 75 /min DO Jazmin Ball Work Phone: [facility] 04-18-2024 10:09-0400 Systolic blood pressure 143 mm[Hg] DO Jazmin Ball Work Phone: [facility] 04-17-2024 10:43-0400 Body height 152.4 cm Maxwell Medrano MD Work Phone: [facility] 04-17-2024 10:43-0400 Body mass index (BMI) [Ratio] 28.59 kg/m2 Maxwell Medrano MD Work Phone: [facility] 04-17-2024 10:43-0400 Body weight 66.41 kg Maxwell Medrano MD Work Phone: [facility] 04-17-2024 10:43-0400 Diastolic blood pressure 62 mm[Hg] Maxwell Medrano MD Work Phone: [facility] 04-17-2024 10:43-0400 Heart rate 88 /min Maxwell Medrano MD Work Phone: [facility] 04-17-2024 10:43-0400 Systolic blood pressure 96 mm[Hg] Maxwell Medrano MD Work Phone: [facility] 04-08-2024 16:12-0400 Body height 149.86 cm DO Jazmin Ball Work Phone: [facility] 04-08-2024 16:12-0400 Body mass index (BMI) [Ratio] 30.5 kg/m2 DO Jazmin Ball Work Phone: [facility] 04-08-2024 16:12-0400 Body weight 68.6 kg DO Jazmin Ball Work Phone: [facility] 04-08-2024 16:12-0400 Diastolic blood pressure 70 mm[Hg] DO Jazmin Ball Work Phone: [facility] 04-08-2024 16:12-0400 Heart rate 87 /min DO Jazmin Ball Work Phone: [facility] 04-08-2024 16:12-0400 Respiratory rate 12 /min DO Jazmin Ball Work Phone: [facility] 04-08-2024 16:12-0400 Systolic blood pressure 114 mm[Hg] DO Jazmin Ball Work Phone: [facility] 02-28-2024 11:47-0400 Body height 149.9 cm Maxwell Medrano MD Work Phone: [facility] 02-28-2024 11:47-0400 Body mass index (BMI) [Ratio] 30.7 kg/m2 Maxwell Medrano MD Work Phone: [facility] 02-28-2024 11:47-0400 Body weight 68.95 kg Maxwell Medrano MD Work Phone: [facility] 02-28-2024 11:47-0400 Diastolic blood pressure 78 mm[Hg] Maxwell Medrano MD Work Phone: [facility] 02-28-2024 11:47-0400 Heart rate 95 /min Maxwell Medrano MD Work Phone: [facility] 02-28-2024 11:47-0400 Systolic blood pressure 110 mm[Hg] Maxwell Medrano MD Work Phone: [facility] 02-25-2024 14:27-0400 Body mass index (BMI) [Ratio] 30.86 kg/m2 Debbie Mac MD Work Phone: [facility] 02-25-2024 14:27-0400 Body weight 69.31 kg Debbie Mac MD Work Phone: [facility] 02-25-2024 14:27-0400 Diastolic blood pressure 80 mm[Hg] Debbie Mac MD Work Phone: [facility] 02-25-2024 14:27-0400 Heart rate 87 /min Debbie Mac MD Work Phone: [facility] 02-25-2024 14:27-0400 Systolic blood pressure 118 mm[Hg] Debbie Mac MD Work Phone: [facility] 02-15-2024 08:46-0400 Body height 149.86 cm DO Jazmin Ball Work Phone: [facility] 02-15-2024 08:46-0400 Body mass index (BMI) [Ratio] 30.9 kg/m2 DO Jazmin Ball Work Phone: [facility] 02-15-2024 08:46-0400 Body weight 69.45 kg DO Jazmin Ball Work Phone: [facility] 02-15-2024 08:46-0400 Diastolic blood pressure 89 mm[Hg] DO Jazmin Ball Work Phone: [facility] 02-15-2024 08:46-0400 Heart rate 97 /min DO Jazmin Ball Work Phone: [facility] 02-15-2024 08:46-0400 Respiratory rate 20 /min DO Jazmin Ball Work Phone: [facility] 02-15-2024 08:46-0400 SaO2% (BldA) [Mass fraction] 96 % DO Jazmin Ball Work Phone: [facility] 02-15-2024 08:46-0400 Systolic blood pressure 139 mm[Hg] DO Jazmin Ball Work Phone: [facility] 01-28-2024 15:25-0400 Body height 149.86 cm DO Jazmin Ball Work Phone: [facility] 01-28-2024 15:25-0400 Body mass index (BMI) [Ratio] 31.4 kg/m2 DO Jazmin Ball Work Phone: [facility] 01-28-2024 15:25-0400 Body weight 70.47 kg DO Jazmin Ball Work Phone: [facility] 01-28-2024 15:25-0400 Diastolic blood pressure 79 mm[Hg] DO Jazmin Ball Work Phone: [facility] 01-28-2024 15:25-0400 Heart rate 72 /min DO Jazmin Ball Work Phone: [facility] 01-28-2024 15:25-0400 Respiratory rate 20 /min DO Jazmin Ball Work Phone: [facility] 01-28-2024 15:25-0400 Systolic blood pressure 137 mm[Hg] DO Jazmin Ball Work Phone: [facility] 01-22-2024 12:46-0400 Body height 149.9 cm [facility] 01-22-2024 12:46-0400 Body mass index (BMI) [Ratio] 30.9 kg/m2 [facility] 01-22-2024 12:46-0400 Body weight 69.4 kg [facility] 01-22-2024 12:46-0400 Diastolic blood pressure 94 mm[Hg] [facility] 01-22-2024 12:46-0400 Heart rate 71 /min [facility] 01-22-2024 12:46-0400 Systolic blood pressure 134 mm[Hg] [facility] 01-20-2024 12:00-0400 Diastolic blood pressure 86 mm[Hg] DO Jazmin Ball Work Phone: [facility] 01-20-2024 12:00-0400 Heart rate 78 /min DO Jazmin Ball Work Phone: [facility] 01-20-2024 12:00-0400 Respiratory rate 18 /min DO Jazmin Ball Work Phone: [facility] 01-20-2024 12:00-0400 SaO2% (BldA) [Mass fraction] 96 % DO Jazmin Ball Work Phone: [facility] 01-20-2024 12:00-0400 Systolic blood pressure 128 mm[Hg] DO Jazmin Ball Work Phone: [facility] 01-20-2024 09:23-0400 Body temperature 97.9 [degF] DO Jazmin Ball Work Phone: [facility] 01-20-2024 06:00-0400 Body weight 70 kg DO Jazmin Ball Work Phone: [facility] 01-18-2024 21:55-0400 Body height 149.86 cm DO Jazmin Ball Work Phone: [facility] 01-18-2024 21:00-0400 Diastolic blood pressure 97 mm[Hg] DO Jazmin Ball Work Phone: [facility] 01-18-2024 21:00-0400 Heart rate 118 /min DO Jazmin Ball Work Phone: [facility] 01-18-2024 21:00-0400 Respiratory rate 18 /min DO Jazmin Ball Work Phone: [facility] 01-18-2024 21:00-0400 SaO2% (BldA) [Mass fraction] 95 % DO Jazmin Ball Work Phone: [facility] 01-18-2024 21:00-0400 Systolic blood pressure 138 mm[Hg] DO Jazmin Ball Work Phone: [facility] 01-18-2024 [id number] Body height 149.86 cm DO Jazmin Ball Work Phone: [facility] 01-18-2024 15:05-0400 Body temperature 97.8 [degF] DO Jazmin Ball Work Phone: [facility] 01-18-2024 15:05-0400 Body weight 69.9 kg DO Jazmin Ball Work Phone: [facility] 11-27-2023 [id number] Body height 160.02 cm DO Jazmin Ball Work Phone: [facility] 11-27-2023 15:07-0400 Body mass index (BMI) [Ratio] 29.1 kg/m2 DO Jazmin Ball Work Phone: [facility] 11-27-2023 15:07-0400 Body weight 74.61 kg DO Jazmin Ball Work Phone: [facility] 11-27-2023 15:07-0400 Diastolic blood pressure 83 mm[Hg] DO Jazmin Ball Work Phone: [facility] 11-27-2023 15:07-0400 Heart rate 116 /min DO Jazmin Ball Work Phone: [facility] 11-27-2023 15:07-0400 Respiratory rate 12 /min DO Jazmin Ball Work Phone: [facility] 11-27-2023 15:07-0400 Systolic blood pressure 135 mm[Hg] DO Jazmin Ball Work Phone: [facility] 09-19-2023 13:07-0500 Body height 149.9 cm Debbie Mac MD Work Phone: [facility] 09-19-2023 13:07-0500 Body mass index (BMI) [Ratio] 33.2 kg/m2 Debbie Mac MD Work Phone: [facility] 09-19-2023 13:07-0500 Body weight 74.57 kg Debbie Mac MD Work Phone: [facility] 09-19-2023 13:07-0500 Diastolic blood pressure 92 mm[Hg] Debbie Mac MD Work Phone: [facility] 09-19-2023 13:07-0500 Heart rate 91 /min Debbie Mac MD Work Phone: [facility] 09-19-2023 13:07-0500 Systolic blood pressure 126 mm[Hg] Debbie Mac MD Work Phone: [facility] 08-21-2023 13:27-0500 Body height 149.[address] 08-21-2023 13:27-0500 Body mass index (BMI) [Ratio] 33.33 kg/m2 [address] 08-21-2023 13:27-0500 Body weight 74.[address] 08-21-2023 13:27-0500 Diastolic blood pressure 64 mm[Hg] [address] 08-21-2023 13:27-0500 Systolic blood pressure 116 mm[Hg] [address] 08-19-2023 12:15-0500 Body height 160.02 cm Negin Garcia Other [employer] Other 05-31-2023 15:24-0400 Body height 149.9 cm Debbie Mac MD Work Phone: [facility] 05-31-2023 15:24-0400 Body mass index (BMI) [Ratio] 33.33 kg/m2 Debbie Mac MD Work Phone: [facility] 05-31-2023 15:24-0400 Body weight 74.84 kg Debbie Mac MD Work Phone: [facility] 05-31-2023 15:24-0400 Diastolic blood pressure 64 mm[Hg] Debbie Mac MD Work Phone: [facility] 05-31-2023 15:24-0400 Heart rate 70 /min Debbie Mac MD Work Phone: [facility] 05-31-2023 15:24-0400 Systolic blood pressure 122 mm[Hg] Debbie Mac MD Work Phone: [facility] 03-21-2023 15:00-0400 Body height 160.02 cm Jazmin Tyson Other [employer] Other 03-21-2023 15:00-0400 Body mass index (BMI) [Ratio] 28.62 kg/m2 Jazmin Ball Other [employer] Other 03-21-2023 15:00-0400 Body weight 73.3 kg Jazmin Ball Other [employer] Other 03-21-2023 15:00-0400 Diastolic blood pressure 79 mm[Hg] Jazmin Ball Other [employer] Other 03-21-2023 15:00-0400 Respiratory rate 12 /min Jazmin Ball Other [employer] Other 03-21-2023 15:00-0400 Systolic blood pressure 124 mm[Hg] Jazmin Ball Other [employer] Other 03-05-2023 14:42-0400 Diastolic blood pressure 76 mm[Hg] DO Jazmin Ball Work Phone: [facility] 03-05-2023 14:42-0400 Heart rate 92 /min DO Jazmin Ball Work Phone: [facility] 03-05-2023 14:42-0400 Inhaled oxygen flow rate 3 L/min DO Jazmin Ball Work Phone: [facility] 03-05-2023 14:42-0400 Respiratory rate 16 /min DO Jazmin Ball Work Phone: [facility] 03-05-2023 14:42-0400 SaO2% (BldA) [Mass fraction] 93 % DO Jazmin Ball Work Phone: [facility] 03-05-2023 14:42-0400 Systolic blood pressure 129 mm[Hg] DO Jazmin Ball Work Phone: [facility] 03-05-2023 13:48-0400 Body temperature 97 [degF] DO Jazmin Ball Work Phone: [facility] 03-05-2023 09:23-0400 Body height 149.86 cm DO Jazmin Ball Work Phone: [facility] 03-05-2023 09:23-0400 Body weight 73 kg DO Jazmin Ball Work Phone: [facility] 01-25-2023 13:09-0400 Body height 149.86 cm Jazmin E Ball Work Phone: [facility] Work Phone: 01-25-2023 13:09-0400 Body mass index (BMI) [Ratio] 32.52 kg/m2 Jazmin E Ball Work Phone: [facility] Work Phone: 01-25-2023 13:09-0400 Body surface area Derived from formula 1.68 m2 Jazmin E Ball Work Phone: [facility] Work Phone: 01-25-2023 13:09-0400 Body weight 73.03 kg Jazmin E Ball Work Phone: [facility] Work Phone: 01-25-2023 13:09-0400 Diastolic blood pressure 78 mm[Hg] Jazmin E Ball Work Phone: [facility] Work Phone: 01-25-2023 13:09-0400 Heart rate 72 /min Jazmin E Ball Work Phone: [facility] Work Phone: 01-25-2023 13:09-0400 Systolic blood pressure 126 mm[Hg] Jazmin E Ball Work Phone: [facility] Work Phone: 01-09-2023 17:07-0400 Diastolic blood pressure 98 mm[Hg] DO Jazmin Ball Work Phone: [facility] 01-09-2023 17:07-0400 Heart rate 70 /min DO Jazmin Ball Work Phone: [facility] 01-09-2023 17:07-0400 Respiratory rate 14 /min DO Jazmin Ball Work Phone: [facility] 01-09-2023 17:07-0400 SaO2% (BldA) [Mass fraction] 95 % DO Jazmin Ball Work Phone: [facility] 01-09-2023 17:07-0400 Systolic blood pressure 130 mm[Hg] DO Jazmin Ball Work Phone: [facility] 01-09-2023 10:54-0400 Body height 149.86 cm DO Jazmin Ball Work Phone: [facility] 01-09-2023 10:54-0400 Body temperature 98.6 [degF] DO Jazmin Ball Work Phone: [facility] 01-09-2023 10:54-0400 Body weight 73.2 kg DO Jazmin Ball Work Phone: [facility] 01-04-2023 14:23-0400 Body height 149.86 cm Jazmin E Ball Work Phone: [facility] Work Phone: 01-04-2023 14:23-0400 Body mass index (BMI) [Ratio] 32.52 kg/m2 Jazmin E Ball Work Phone: [facility] Work Phone: 01-04-2023 14:23-0400 Body surface area Derived from formula 1.68 m2 Jazmin E Ball Work Phone: [facility] Work Phone: 01-04-2023 14:23-0400 Body weight 73.03 kg Jazmin E Ball Work Phone: [facility] Work Phone: 01-04-2023 14:23-0400 Diastolic blood pressure 88 mm[Hg] Jazmin E Ball Work Phone: [facility] Work Phone: 01-04-2023 14:23-0400 Heart rate 76 /min Jazmin E Ball Work Phone: [facility] Work Phone: 01-04-2023 14:23-0400 Systolic blood pressure 128 mm[Hg] Jazmin E Ball Work Phone: [facility] Work Phone: 01-03-2023 14:05-0400 Body height 149.86 cm Jazmin E Ball Work Phone: [facility] Work Phone: 01-03-2023 14:05-0400 Body mass index (BMI) [Ratio] 33.12 kg/m2 Jazmin E Ball Work Phone: [facility] Work Phone: 01-03-2023 14:05-0400 Body surface area Derived from formula 1.69 m2 Jazmin E Ball Work Phone: [facility] Work Phone: 01-03-2023 14:05-0400 Body weight 74.39 kg Jazmin E Ball Work Phone: [facility] Work Phone: 01-03-2023 14:05-0400 Diastolic blood pressure 62 mm[Hg] Jazmin E Ball Work Phone: [facility] Work Phone: 01-03-2023 14:05-0400 Heart rate 70 /min Jazmin E Ball Work Phone: [facility] Work Phone: 01-03-2023 14:05-0400 Systolic blood pressure 118 mm[Hg] Jazmin E Ball Work Phone: [facility] Work Phone: 12-25-2022 13:41-0400 Diastolic blood pressure 84 mm[Hg] Jazmin E Ball Work Phone: [facility] Work Phone: 12-25-2022 13:41-0400 Heart rate 107 /min Jazmin E Ball Work Phone: [facility] Work Phone: 12-25-2022 13:41-0400 Respiratory rate 16 /min Jazmin E Ball Work Phone: [facility] Work Phone: 12-25-2022 13:41-0400 SaO2% (BldA) [Mass fraction] 96 % Jazmin E Ball Work Phone: [facility] Work Phone: 12-25-2022 13:41-0400 Systolic blood pressure 132 mm[Hg] Jazmin E Ball Work Phone: [facility] Work Phone: 11-27-2022 09:24-0400 Body height 149.86 cm DO Jazmin Ball Work Phone: [facility] 11-27-2022 09:24-0400 Body temperature 98 [degF] DO Jazmin Ball Work Phone: [facility] 11-27-2022 09:24-0400 Body weight 73 kg DO Jazmin Ball Work Phone: [facility] 11-27-2022 09:24-0400 Diastolic blood pressure 82 mm[Hg] DO Jazmin Ball Work Phone: [facility] 11-27-2022 09:24-0400 Heart rate 105 /min DO Jazmin Ball Work Phone: [facility] 11-27-2022 09:24-0400 Respiratory rate 18 /min DO Jazmin Ball Work Phone: [facility] 11-27-2022 09:24-0400 SaO2% (BldA) [Mass fraction] 97 % DO Jazmin Ball Work Phone: [facility] 11-27-2022 09:24-0400 Systolic blood pressure 136 mm[Hg] DO Jazmin Ball Work Phone: [facility] 10-24-2022 14:30-0500 Body height 160.02 cm Rachel Larios Other [employer] Other 10-24-2022 14:30-0500 Body mass index (BMI) [Ratio] 28.16 kg/m2 Rachel Larios Other [employer] Other 10-24-2022 14:30-0500 Body weight 72.12 kg Rachel Larios Other [employer] Other 10-24-2022 14:30-0500 Diastolic blood pressure 98 mm[Hg] Rachel Larios Other [employer] Other 10-24-2022 14:30-0500 SaO2% (BldA) [Mass fraction] 97 % Racheladams Larios Other [employer] Other 10-24-2022 14:30-0500 Systolic blood pressure 152 mm[Hg] Rachel Larios Other [employer] Other 10-13-2022 10:48-0500 Body height 149.86 cm Jazmin Jovani [facility] [employer] Work Phone: [employer] DO Work Phone: 10-13-2022 10:48-0500 Body mass index (BMI) [Ratio] 32.11 kg/m2 Jazmin Jovani Ball Work Phone: [employer] DO Work Phone: 10-13-2022 10:48-0500 Body surface area Derived from formula 1.67 m2 Jazmin Jovani Ball Work Phone: [employer] DO Work Phone: 10-13-2022 10:48-0500 Body weight 72.12 kg Jazmin E Ball Work Phone: [employer] DO Work Phone: 10-13-2022 10:48-0500 Diastolic blood pressure 66 mm[Hg] Jazmin Hahn Ball Work Phone: [employer] [facility] [facility] [place] [facility] [place] [facility] DO Work Phone: 10-13-2022 10:48-0500 Heart rate 72 /min Jazmin E Ball Work Phone: [facility] 250 DO Work Phone: 10-13-2022 10:48-0500 Systolic blood pressure 98 mm[Hg] Jazmin E Ball Work Phone: [facility] 250 DO Work Phone: 09-27-2022 13:36-0500 Body height 149.86 cm Jazmin E Ball Work Phone: [facility] DO Work Phone: 09-27-2022 13:36-0500 Body mass index (BMI) [Ratio] 31.91 kg/m2 Jazmni E Ball Work Phone: [facility] 250 DO Work Phone: 09-27-2022 13:36-0500 Body surface area Derived from formula 1.67 m2 Jazmin E Ball Work Phone: [facility] 250 DO Work Phone: 09-27-2022 13:36-0500 Body weight 71.67 kg Jazmin E Ball Work Phone: [facility] DO Work Phone: 09-27-2022 13:36-0500 Diastolic blood pressure 86 mm[Hg] Jazmin E Ball Work Phone: [facility] DO Work Phone: 09-27-2022 13:36-0500 Heart rate 70 /min Jazmin E Ball Work Phone: [facility] DO Work Phone: 09-27-2022 13:36-0500 Systolic blood pressure 122 mm[Hg] Jazmin E Ball Work Phone: [phone] [place] [address] [facility] [place] 250 DO Work Phone: 09-21-2022 16:34-0500 Body temperature 97.8 [degF] DO Jazmin Ball Work Phone: [facility] 09-21-2022 16:34-0500 Diastolic blood pressure 77 mm[Hg] DO Jazmin Ball Work Phone: [facility] 09-21-2022 16:34-0500 Heart rate 68 /min DO Jazmin Ball Work Phone: [facility] 09-21-2022 16:34-0500 Respiratory rate 18 /min DO Jazmin Ball Work Phone: [facility] 09-21-2022 16:34-0500 SaO2% (BldA) [Mass fraction] 96 % DO Jazmin Ball Work Phone: [facility] 09-21-2022 16:34-0500 Systolic blood pressure 134 mm[Hg] DO Jazmin Ball Work Phone: [facility] 09-21-2022 06:00-0500 Body weight 73.2 kg DO Jazmin Ball Work Phone: [facility] 09-17-2022 15:30-0500 Diastolic blood pressure 81 mm[Hg] DO Jazmin Ball Work Phone: [facility] 09-17-2022 15:30-0500 Heart rate 75 /min DO Jazmin Ball Work Phone: [facility] 09-17-2022 15:30-0500 Respiratory rate 16 /min DO Jazmin Ball Work Phone: [facility] 09-17-2022 15:30-0500 SaO2% (BldA) [Mass fraction] 96 % DO Jazmin Ball Work Phone: [facility] 09-17-2022 15:30-0500 Systolic blood pressure 139 mm[Hg] DO Jazmin Ball Work Phone: [facility] 09-17-2022 14:00-0500 Body height 149.86 cm DO Jazmin Ball Work Phone: [facility] 09-17-2022 14:00-0500 Body weight 72.1 kg DO Jazmin Ball Work Phone: [facility] 09-17-2022 13:00-0500 Body temperature 97.8 [degF] DO Jazmin Ball Work Phone: [facility] 09-12-2022 16:00-0500 Body height 160.02 cm Jazmin Ball Other [employer] Other 09-12-2022 16:00-0500 Body mass index (BMI) [Ratio] 28.02 kg/m2 Jazmin Ball Other [employer] Other 09-12-2022 16:00-0500 Body weight 71.76 kg Jazmin Ball Other [facility] [employer] Other 09-12-2022 16:00-0500 Diastolic blood pressure 76 mm[Hg] Jazmin Ball Other [facility] [employer] Other 09-12-2022 16:00-0500 Respiratory rate 12 /min Jazmin Ball Other [facility] [employer] Other 09-12-2022 16:00-0500 SaO2% (BldA) [Mass fraction] 97 % Jazmin Ball Other [facility] [employer] Other 09-12-2022 16:00-0500 Systolic blood pressure 132 mm[Hg] Jazmin Ball Other [employer] Other 09-06-2022 07:32-0500 Body temperature 97 [degF] DO Jazmin Ball Work Phone: [facility] 09-06-2022 07:32-0500 Diastolic blood pressure 83 mm[Hg] DO Jazmin Ball Work Phone: [facility] 09-06-2022 07:32-0500 Heart rate 92 /min DO Jazmin Ball Work Phone: [facility] 09-06-2022 07:32-0500 Respiratory rate 18 /min DO Jazmin Ball Work Phone: [facility] 09-06-2022 07:32-0500 SaO2% (BldA) [Mass fraction] 94 % DO Jazmin Ball Work Phone: [facility] 09-06-2022 07:32-0500 Systolic blood pressure 141 mm[Hg] DO Jazmin Ball Work Phone: [facility] 09-06-2022 06:00-0500 Body weight 70.1 kg DO Jazmin Ball Work Phone: [facility] 09-04-2022 14:04-0500 Body height 149.86 cm DO Jazmin Ball Work Phone: [facility] 09-04-2022 12:21-0500 40 1 Jazmin E Ball Work Phone: [facility] 250 DO Work Phone: Comment on above: [id number] 09-01-2022 22:47-0500 Diastolic blood pressure 85 mm[Hg] DO Jazmin Ball Work Phone: [facility] 09-01-2022 22:47-0500 Heart rate 98 /min DO Jazmin Ball Work Phone: [facility] 09-01-2022 22:47-0500 Systolic blood pressure 151 mm[Hg] DO Jazmin Ball Work Phone: [facility] 09-01-2022 22:30-0500 Respiratory rate 26 /min DO Jazmin Ball Work Phone: [facility] 09-01-2022 22:30-0500 SaO2% (BldA) [Mass fraction] 98 % DO Jazmin Ball Work Phone: [facility] 09-01-2022 12:07-0500 Body height 149.86 cm DO Jazmin Ball Work Phone: [facility] 09-01-2022 12:07-0500 Body temperature 98.3 [degF] DO Jazmin Ball Work Phone: [facility] 09-01-2022 12:07-0500 Body weight 73 kg DO Jazmin Ball Work Phone: [facility] 08-24-2022 10:03-0500 Body height 149.86 cm Jazmin Hahn Ball Work Phone: [facility] 250 DO Work Phone: 08-24-2022 10:03-0500 Body mass index (BMI) [Ratio] 32.92 kg/m2 Jazmin Hahn Ball Work Phone: [facility] 250 DO Work Phone: 08-24-2022 10:03-0500 Body surface area Derived from formula 1.69 m2 Jazmin Hahn Ball Work Phone: [facility] 250 DO Work Phone: 08-24-2022 10:03-0500 Body weight 73.94 kg Jazmin Hahn Ball Work Phone: [facility] 250 DO Work Phone: 08-24-2022 10:03-0500 Diastolic blood pressure 98 mm[Hg] Jazmin Hahn Ball Work Phone: [facility] 250 DO Work Phone: 08-24-2022 10:03-0500 Heart rate 112 /min Jazmin E Ball Work Phone: [facility] 250 DO Work Phone: 08-24-2022 10:03-0500 Systolic blood pressure 132 mm[Hg] Jazmin E Ball Work Phone: [facility] 250 DO Work Phone: 06-26-2022 14:26-0500 Body height 149.86 cm Jazmin Hahn Ball Work Phone: [facility] [employer] 250 DO Work Phone: 06-26-2022 14:26-0500 Body mass index (BMI) [Ratio] 32.92 kg/m2 Jazmin E Ball Work Phone: [facility] [employer] 250 DO Work Phone: 06-26-2022 14:26-0500 Body surface area Derived from formula 1.69 m2 Jazmin E Ball Work Phone: [facility] [employer] 250 DO Work Phone: 06-26-2022 14:26-0500 Body weight 73.94 kg Jazmin E Ball Work Phone: [facility] [employer] DO Work Phone: 06-26-2022 14:26-0500 Diastolic blood pressure 70 mm[Hg] Jazmin E Ball Work Phone: [facility] [employer] 250 DO Work Phone: 06-26-2022 14:26-0500 Heart rate 71 /min Jazmin Hahn Ball Work Phone: [facility] [employer] 250 DO Work Phone: 06-26-2022 14:26-0500 Systolic blood pressure 132 mm[Hg] Jazmin Hahn Ball Work Phone: [facility] [employer] 250 DO Work Phone: 04-27-2022 14:30-0400 Body height 160.02 cm John Mims Other [employer] Other 04-27-2022 14:30-0400 Body mass index (BMI) [Ratio] 27.45 kg/m2 John Mims Other [employer] Other 04-27-2022 14:30-0400 Body weight 70.31 kg John Mims Other [employer] Other 03-10-2022 10:53-0400 Diastolic blood pressure 82 mm[Hg] Jazmin E Ball Work Phone: [facility] [employer] 250 DO Work Phone: 03-10-2022 10:53-0400 Systolic blood pressure 126 mm[Hg] Jazmin E Ball Work Phone: [facility] [employer] 250 DO Work Phone: 03-10-2022 10:19-0400 Body height 149.86 cm Jazmin E Ball Work Phone: [facility] [employer] 250 DO Work Phone: 03-10-2022 10:19-0400 Body mass index (BMI) [Ratio] 31.91 kg/m2 Jazmin E Ball Work Phone: [facility] [employer] DO Work Phone: 03-10-2022 10:19-0400 Body surface area Derived from formula 1.67 m2 Jazmin E Ball Work Phone: [facility] [employer] [place] DO Work Phone: 03-10-2022 10:19-0400 Body weight 71.67 kg Ajzmin E Ball Work Phone: [facility] [employer] 250 DO Work Phone: 03-10-2022 10:19-0400 Diastolic blood pressure 80 mm[Hg] Jazmin E Ball Work Phone: [facility] [employer] 250 DO Work Phone: 03-10-2022 10:19-0400 Heart rate 78 /min Jazmin E Ball Work Phone: [facility] [employer] 250 DO Work Phone: 03-10-2022 10:19-0400 Systolic blood pressure 146 mm[Hg] Jazmin E Ball Work Phone: [facility] [employer] 250 DO Work Phone: 02-28-2022 15:45-0400 Body height 160.02 cm John Mims Other [employer] Other 02-28-2022 15:45-0400 Body mass index (BMI) [Ratio] 27.45 kg/m2 John Mims Other [employer] Other 02-28-2022 15:45-0400 Body weight 70.31 kg John Mims Other [employer] Other 02-28-2022 15:32-0400 Body weight 0 kg DO Jazmin Ball Work Phone: [facility] 12-15-2021 08:46-0400 Body weight 0 kg DO Jazmin Ball Work Phone: [facility] 10-19-2021 16:04-0500 Body height 149.86 cm Jazmin E Ball Work Phone: [facility] [employer] 250 DO Work Phone: 10-19-2021 16:04-0500 Body mass index (BMI) [Ratio] 29.13 kg/m2 Jazmin E Ball Work Phone: [facility] [employer] 250 DO Work Phone: 10-19-2021 16:04-0500 Body surface area Derived from formula 1.6 m2 Jazmin E Ball Work Phone: [facility] [employer] 250 DO Work Phone: 10-19-2021 16:04-0500 Body weight 65.41 kg Jazmin E Ball Work Phone: [facility] [employer] 250 DO Work Phone: 10-19-2021 16:04-0500 Diastolic blood pressure 76 mm[Hg] Jazmin E Ball Work Phone: [facility] 250 DO Work Phone: 10-19-2021 16:04-0500 Heart rate 70 /min Jazmin E Ball Work Phone: [facility] 250 DO Work Phone: 10-19-2021 16:04-0500 Systolic blood pressure 110 mm[Hg] Jazmin E Ball Work Phone: [facility] 250 DO Work Phone: 07-26-2021 14:31-0500 Body height 149.86 cm Jazmin E Ball Work Phone: [facility] 250 DO Work Phone: 07-26-2021 14:31-0500 Body mass index (BMI) [Ratio] 29.49 kg/m2 Jazmin E Ball Work Phone: [facility] 250 DO Work Phone: 07-26-2021 14:31-0500 Body surface area Derived from formula 1.61 m2 Jazmin E Ball Work Phone: [facility] 250 DO Work Phone: 07-26-2021 14:31-0500 Body weight 66.23 kg Jazmin E Ball Work Phone: [facility] 250 DO Work Phone: 07-26-2021 14:31-0500 Diastolic blood pressure 80 mm[Hg] Jazmin E Ball Work Phone: [facility] 250 DO Work Phone: 07-26-2021 14:31-0500 Heart rate 70 /min Jazmin E Ball Work Phone: [facility] 250 DO Work Phone: 07-26-2021 14:31-0500 Systolic blood pressure 124 mm[Hg] Jazmin Hahn Ball Work Phone: [facility] 250 DO Work Phone: 07-06-2021 15:54-0500 Body height 149.86 cm Jazmin E Ball Work Phone: [facility] 250 DO Work Phone: 07-06-2021 15:54-0500 Body mass index (BMI) [Ratio] 28.48 kg/m2 Jazmin Hahn Ball Work Phone: [facility] 250 DO Work Phone: 07-06-2021 15:54-0500 Body surface area Derived from formula 1.59 m2 Jazmin E Ball Work Phone: [facility] 250 DO Work Phone: 07-06-2021 15:54-0500 Body temperature 97.2 [degF] Jazmin Hahn Ball Work Phone: [facility] 250 DO Work Phone: 07-06-2021 15:54-0500 Body weight 63.96 kg Jazmin Hahn Ball Work Phone: [facility] 250 DO Work Phone: 07-06-2021 15:54-0500 Diastolic blood pressure 49 mm[Hg] Jazmin Hahn Ball Work Phone: [facility] 250 DO Work Phone: 07-06-2021 15:54-0500 Heart rate 73 /min Jazmin E Ball Work Phone: [facility] 250 DO Work Phone: 07-06-2021 15:54-0500 Systolic blood pressure 95 mm[Hg] Jazmin E Ball Work Phone: [facility] 250 DO Work Phone: 06-30-2021 00:00-0500 0 1 Jazmin E Ball Work Phone: [facility] 250 DO Work Phone: Comment on above: [id number] 06-06-2021 15:33-0400 Body height 152.4 cm Jazmin E Ball Work Phone: [facility] 250 DO Work Phone: 06-06-2021 15:33-0400 Body mass index (BMI) [Ratio] 28.12 kg/m2 Jazmin E Ball Work Phone: [facility] 250 DO Work Phone: 06-06-2021 15:33-0400 Body surface area Derived from formula 1.62 m2 Jazmin E Ball Work Phone: [facility] 250 DO Work Phone: 06-06-2021 15:33-0400 Body weight 65.32 kg Jazmin E Ball Work Phone: [facility] 250 DO Work Phone: 06-06-2021 15:33-0400 Diastolic blood pressure 64 mm[Hg] Jazmin E Ball Work Phone: [facility] 250 DO Work Phone: 06-06-2021 15:33-0400 Heart rate 110 /min Jazmin E Ball Work Phone: [facility] 250 DO Work Phone: 06-06-2021 15:33-0400 Systolic blood pressure 88 mm[Hg] Jazmin E Ball Work Phone: [facility] 250 DO Work Phone: Encounters Encounter Date Encounter Type Care Provider Facility Start: 05-01-2025 End: 05-01-2025 Patient encounter status [address] Start: 05-01-2025 End: 05-01-2025 Subsequent hospital visit by physician Chanell [address] [facility] Comment on above: Pre-op testing Start: 04-30-2025 End: 04-30-2025 ambulatory JOSEPH SEPULVEDA Not Available Start: 04-30-2025 End: 04-30-2025 Office outpatient visit 15 minutes Joseph Sepulveda DPM Work Phone: [facility] Comment on above: Cellulitis of left f oot (Primary Dx); Pain due to onychomycosis of toenails of both feet; Acquired deformity of left toe; Acquired deformity of right toe; Foot ulcer, left, with fat layer exposed (HCC) Start: 04-30-2025 End: 04-30-2025 Bamboo flowsheet Joseph Sepulveda DPM Work Phone: [facility] Start: 04-30-2025 End: 04-30-2025 Bamboo flowsheet Joseph Sepulveda DPM Work Phone: [facility] Start: 04-28-2025 ambulatory JAZMIN العلي [facility] Start: 04-28-2025 End: 04-28-2025 ambulatory [facility] Start: 03-02-2025 ambulatory [facility] Start: 02-23-2025 End: 02-23-2025 Office outpatient visit 40 minutes Cristiana Chapa BUSINESS 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-PROPERTY 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 Work Phone: [facility] Comment on above: High risk medication use (Primary Dx); Essential hypertension, benign; Pacemaker; Persistent atrial fibrillation (Multi); Anticoagulated; Shortness of breath Start: 02-23-2025 End: 02-23-2025 ambulatory CRISTIANA CHAPA [facility] Start: 02-12-2025 End: 02-12-2025 Xiangboo flowssilvia [...] Not Available Start: 01-30-2025 End: 01-30-2025 ambulatory [facility] Start: 01-30-2025 End: 01-30-2025 Subsequent hospital visit by physician Chanell Joseph [facility] Comment on above: Pacemaker Start: 01-22-2025 End: 01-23-2025 ambulatory [facility] Facility:[facility] Start: 01-22-2025 End: 01-23-2025 Evaluation and management of inpatient Jazmin العلي DO Work Phone: [facility] [place] [facility] Work Phone: Start: 01-22-2025 End: 01-23-2025 observation encounter Jazmin العلي DO Work Phone: [facility] Work Phone: Start: 01-21-2025 End: 01-21-2025 ambulatory [facility] Work Phone: Start: 01-21-2025 End: 01-21-2025 Patient encounter procedure [facility] Work Phone: Start: 01-21-2025 Non-patient / Non-visit [facility] Work Phone: Start: 01-09-2025 End: 01-09-2025 ambulatory [facility] Work Phone: Start: 01-09-2025 End: 01-09-2025 Patient encounter procedure [facility] Work Phone: Start: 01-06-2025 End: 01-06-2025 Telemedicine consultation with patient Nigel El MD Work Phone: [facility] Comment on above: History of repair of hiatal hernia (Primary Dx) Start: 01-06-2025 End: 01-06-2025 ambulatory NIGEL EL Facility:[facility] Start: 12-31-2024 End: 12-31-2024 Telemedicine consultation with patient Nigel El MD Work Phone: [facility] Comment on above: NO SHOW (Primary Dx) Start: 12-31-2024 ambulatory NIGEL EL Facil ity:[facility] Start: 12-30-2024 End: 12-30-2024 Telemedicine consultation with patient Nigel El MD Work Phone: [facility] Comment on above: History of repair of hiatal hernia (Primary Dx); NO SHOW Start: 12-30-2024 ambulatory NIGEL EL Facil ity:[facility] Start: 12-11-2024 End: 12-11-2024 Telephone encounter Nigel El MD Work Phone: [facility] Start: 12-08-2024 End: 12-08-2024 ambulatory NIGEL EL Facility:[facility] Start: 12-08-2024 End: 12-08-2024 Subsequent hospital visit by physician Nigel El MD Work Phone: [facility] Comment on above: Diaphragmatic hernia without obstruction or gangrene (Primary Dx); Hiatal hernia; Gastroesophageal reflux disease without esophagitis Start: 11-26-2024 End: 11-26-2024 Orders Only Nigel El MD Work Phone: [facility] Start: 11-25-2024 End: 11-25-2024 ambulatory Bonnie Clarke RN [facility] Comment on above: Heartburn Start: 11-21-2024 End: 11-21-2024 Admission to same day surgery center Katie Yung MD Work Phone: [facility] Start: 11-12-2024 End: 11-14-2024 ambulatory KATIE YUNG Facility:[facility] Start: 11-11-2024 End: 11-11-2024 ambulatory Bonnie Clarke RN [facility] Comment on above: Food getting stuck i n throat; Swallowing problems Start: 10-23-2024 End: 10-23-2024 Office outpatient visit 40 minutes Maxwell Medrano MD Work Phone: [facility] Comment on above: Pacemaker; Sick sinus syndrome (Multi); Persistent atrial fibrillation (Multi); High risk medication use; 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 (Multi); Essential hypertension, benign; Chronic diastolic heart failure; BMI 27.0-27.9,adult; Never smoked tobacco Start: 10-23-2024 End: 10-23-2024 ambulatory MAXWELL MEDRANO [facility] Start: 10-13-2024 End: 10-13-2024 ambulatory Yesica Astudillo MD Facility: [facility] Start: 10-06-2024 Patient encounter procedure [facility] Start: 10-06-2024 End: 10-06-2024 ambulatory Jazmin Tyson DO Work Phone: [facility] Work Phone: Start: 10-06-2024 End: 10-06-2024 Patient encounter procedure Jazmin Ball DO Work Phone: [facility] Work Phone: Start: 10-01-2024 Non-patient / Non-visit Benjskip in Ball DO Work Phone: [facility] Work Phone: Start: 09-12-2024 End: 09-12-2024 Emergency department patient visit Jazmin العلي DO Work Phone: [facility]-Emergency Room Work Phone: Start: 09-11-2024 End: 09-11-2024 Patient encounter procedure Jazmin العلي DO Work Phone: [facility]-XRay [facility] Work Phone: Start: 09-11-2024 End: 09-11-2024 ambulatory Jazmin Ball DO Work Phone: [facility] Work Phone: Start: 09-09-2024 End: 09-09-2024 ambulatory Jazmin Ball DO Work Phone: [facility] Work Phone: Start: 09-09-2024 End: 09-09-2024 Patient encounter procedure Jazmin العلي DO Work Phone: [facility] Work Phone: Start: 09-08-2024 End: 09-08-2024 ambulatory [facility] Start: 09-08-2024 End: 09-08-2024 Subsequent hospital visit by physician Chanell Joseph [facility] Comment on above: Pacemaker; Sick sinus syndrome (Multi) Start: 09-05-2024 End: 09-05-2024 Patient encounter procedure Jazmin العلي DO Work Phone: [facility] Work Phone: Start: 09-05-2024 End: 09-05-2024 ambulatory Jazmin العلي DO Work Phone: [facility] Work Phone: Start: 09-05-2024 End: 09-05-2024 Office outpatient visit 25 minutes Debbie Mac MD Work Phone: [facility] Comment on above: Persistent atrial [...] any substance Start: 09-05-2024 End: 09-05-2024 ambulatory [facility] Start: 09-01-2024 End: 09-01-2024 ambulatory Yesica Astudillo MD Facility: [facility] Start: 08-27-2024 End: 08-27-2024 ambulatory Jazmin Tyson MORENO Work Phone: [facility] Work Phone: Start: 08-27-2024 End: 08-27-2024 Patient encounter procedure Jazmin العلي DO Work Phone: [facility] Work Phone: Start: 08-18-2024 End: 08-18-2024 ambulatory KATIE YUNG Facility:[facility] Start: 08-18-2024 End: 08-18-2024 Phys/qhp telephone evaluation 11-20 min Katie Yung MD Work Phone: [facility] Comment on above: Esophageal dysphagia (Primary Dx) Start: 08-04-2024 End: 08-04-2024 ambulatory Yesica Astudillo MD Facility: [facility] Start: 07-31-2024 End: 07-31-2024 Patient encounter procedure Jazmin Tyson MORENO Work Phone: [facility] Work Phone: Start: 07-28-2024 End: 07-28-2024 Office outpatient visit 40 minutes Maxwell Medrano MD Work Phone: [facility] Comment on above: Pacemaker; Persistent atrial fibrillation (Multi); Essential hypertension, benign; Diastolic heart failure, unspecified HF chronicity; High risk medication use; BMI 28.0-28.9,adult; 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 (Multi); Sinus bradycardia; Never smoked any substance; Anticoagulated Start: 07-28-2024 End: 07-28-2024 ambulatory [facility] Start: 07-23-2024 Non-patient / Non-visit Benjam in Ball DO Work Phone: [facility] Work Phone: Start: 07-22-2024 End: 07-22-2024 Telemedicine consultation with patient Katie Yung MD Work Phone: [facility] Comment on above: NO SHOW (Primary Dx) Start: 07-22-2024 ambulatory KATIE YUNG Facility: [facility] Start: 07-21-2024 Non-patient / Non-visit Benjam in Ball DO Work Phone: [facility] Work Phone: Start: 07-21-2024 End: 07-24-2024 Evaluation and management of inpatient Jazmin Ball DO Work Phone: [facility] [place] [facility] Work Phone: Start: 07-21-2024 End: 07-28-2024 ambulatory Katie Yung MD Work Phone: [facility] Comment on above: Update Start: 07-21-2024 Non-patient / Non-visit Benjam in Ball DO Work Phone: [facility] Work Phone: Start: 07-09-2024 End: 07-09-2024 ambulatory Jazmin Ball DO Work Phone: [facility] Work Phone: Start: 07-09-2024 End: 07-09-2024 Patient encounter procedure Jazmin Ball DO Work Phone: [facility] Work Phone: Start: 07-07-2024 End: 07-07-2024 ambulatory [facility] Ambulatory Start: 07-02-2024 Non-patient / Non-visit Benjam in Ball DO Work Phone: [facility] Work Phone: Start: 07-02-2024 Non-patient / Non-visit Kaveh in Tyson DO Work Phone: [facility] Start: 07-01-2024 Non-patient / Non-visit Benjam in Tyson DO Work Phone: [facility] Start: 06-30-2024 End: 07-03-2024 Evaluation and management of inpatient Jazmin العلي DO Work Phone: [facility] [place] [facility] Work Phone: Start: 06-26-2024 End: 06-26-2024 ambulatory KATIE YUNG Facility:[facility] Start: 06-26-2024 End: 06-26-2024 Subsequent hospital visit by physician Cassia Ip/Op Flouro 1 [facility] Comment on above: Esophageal dysphagia Start: 06-11-2024 End: 06-23-2024 Telephone encounter Katie Yung MD Work Phone: [facility] Comment on above: Health Information Start: 06-10-2024 End: 06-10-2024 ambulatory DO Jazmin العلي Work Phone: [facility] Work Phone: Start: 06-10-2024 End: 06-10-2024 Patient encounter procedure DO Jazmin العلي Work Phone: [facility] Work Phone: Start: 06-05-2024 End: 06-05-2024 Office outpatient visit 40 minutes Maxwell Medrano MD Work Phone: [facility] Comment on above: Pacemaker; Persistent atrial fibrillation (Multi); Essential hypertension, benign; Diastolic heart failure, unspecified HF chronicity; High risk medication use; BMI 28.0-28.9,adult; 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 (Multi); Sinus bradycardia; Never smoked any substance Start: 06-05-2024 End: 06-05-2024 ambulatory MAXWELL MEDRANO [facility] Start: 05-29-2024 End: 05-29-2024 ambulatory KATIE YUNG Facility:[facility] Start: 05-29-2024 End: 05-29-2024 Subsequent hospital visit by physician Katie Yung MD Work Phone: [facility] Comment on above: Esophageal dysphagia (Primary Dx) Start: 05-28-2024 Non-patient / Non-visit DO Johnson العلي Work Phone: [facility] Work Phone: Start: 05-19-2024 End: 05-19-2024 ambulatory DO Jazmin اللعي Work Phone: [facility] Work Phone: Start: 05-19-2024 End: 05-19-2024 Patient encounter procedure DO Jazmin Tyson Work Phone: [facility] Work Phone: Start: 05-15-2024 End: 05-15-2024 Orders Only Katie Yung MD Work Phone: [facility] Start: 05-08-2024 End: 05-08-2024 ambulatory DO Jazmin العلي Work Phone: [facility] Work Phone: Start: 05-08-2024 End: 05-08-2024 Patient encounter procedure DO Jazmin العلي Work Phone: [facility] Physician [facility] Work Phone: Start: 04-28-2024 End: 04-28-2024 Office outpatient visit 40 minutes Maxwell Medrano MD Work Phone: [facility] Comment on above: Pacemaker (Primary D x); Persistent atrial fibrillation (Multi); Essential hypertension, benign; Diastolic heart failure, unspecified HF chronicity (Multi); High risk medication use; BMI 28.0-28.9,adult; 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 (Multi); Sinus bradycardia; Never smoked any substance Start: 04-24-2024 End: 04-24-2024 Office outpatient visit 25 minutes Debbie Mac MD Work Phone: [facility] Comment on above: Atrial flutter, unsp ecified type (Multi) (Primary Dx); Essential hypertension, benign; Chronic diastolic heart failure (Multi); Mixed hyperlipidemia; Sinus bradycardia; Single vessel coronary artery disease; Anticoagulated; Shortness of breath; Never smoked any substance; BMI 28.0-28.9,adult Start: 04-24-2024 End: 04-24-2024 Patient encounter procedure DO Jazmin العلي Work Phone: [facility]Lab [facility] [place] Work Phone: Start: 04-24-2024 End: 04-24-2024 ambulatory DO Jazmin [facility] [employer] Work Phone: [facility] Work Phone: Start: 04-18-2024 End: 04-18-2024 ambulatory DO Jazmin [employer] Work Phone: [facility] Work Phone: Start: 04-18-2024 End: 04-18-2024 Patient encounter procedure DO Jazmin [employer] Work Phone: [facility] Gastroenterology Work Phone: Start: 04-17-2024 End: 04-17-2024 Office outpatient visit 40 minutes Maxwell Medrano MD Work Phone: [facility] Comment on above: High risk medication use (Primary Dx); Pacemaker; Anticoagulation management encounter; Longstanding persistent atrial fibrillation (Multi); Sinus bradycardia; BMI 28.0-28.9,adult; Never smoked any substance Start: 04-08-2024 End: 04-08-2024 ambulatory DO Jazmin Tyson Work Phone: [facility] Work Phone: Start: 04-08-2024 End: 04-08-2024 Patient encounter procedure DO Jazmin Tyson Work Phone: [facility] Work Phone: Start: 04-07-2024 End: 04-07-2024 ambulatory Andrius Vytautas Giedraitis MD Facility: [facility] Start: 03-31-2024 Non-patient / Non-visit DO Johnson العلي Work Phone: [facility] Work Phone: Start: 03-21-2024 Evaluation and management of inpatient RICHARDSON Joseph [facility] Start: 03-21-2024 Non-patient / Non-visit DO Johnson العلي Work Phone: [facility] Work Phone: Start: 03-21-2024 Non-patient / Non-visit DO Johnson العلي Work Phone: [facility] Work Phone: Start: 02-28-2024 End: 02-28-2024 Office outpatient visit 40 minutes Maxwell Medrano MD Work Phone: [facility] Comment on above: High risk medication use (Primary Dx); Diastolic heart failure, unspecified HF chronicity (Multi); Abnormal EKG; Anticoagulation management encounter; Longstanding persistent atrial fibrillation (Multi); Sinus bradycardia; Pacemaker; BMI 30.0-30.9,adult; Never smoked tobacco Start: 02-25-2024 End: 02-25-2024 Office outpatient visit 40 minutes Debbie Mac MD Work Phone: [facility] Comment on above: Atrial flutter, [...] 02-18-2024 ambulatory DO Jazmin العلي Work Phone: [facility] Work Phone: Start: 02-18-2024 End: 02-18-2024 Patient encounter procedure DO Jazmin العلي Work Phone: [facility]-CT Scan [place] Work Phone: Start: 02-15-2024 End: 02-15-2024 ambulatory DO Jazmin Ball Work Phone: [facility] Work Phone: Start: 02-15-2024 End: 02-15-2024 Patient encounter procedure DO Jazmin العلي Work Phone: [facility] Work Phone: Start: 02-08-2024 Non-patient / Non-visit DO Johnson العلي Work Phone: [facility] Work Phone: Start: 02-08-2024 Non-patient / Non-visit DO Johnson العلي Work Phone: [facility] Work Phone: Start: 02-07-2024 Non-patient / Non-visit DO Johnson العلي Work Phone: [facility] Work Phone: Start: 02-07-2024 Non-patient / Non-visit DO Johnson العلي Work Phone: [facility] Work Phone: Start: 01-28-2024 End: 01-28-2024 ambulatory DO Jazmin العلي Work Phone: [facility] Work Phone: Start: 01-28-2024 End: 01-28-2024 Patient encounter procedure DO Jazmin العلي Work Phone: [facility] Work Phone: Start: 01-28-2024 End: 01-28-2024 ambulatory Yesica Astudillo MD Facility:[facility] Start: 01-22-2024 End: 01-22-2024 Professional / ancillary services management Chanell Stroud Cardiology Ecg/Holter [facility] Start: 01-21-2024 Non-patient / Non-visit DO Johnson العلي Work Phone: [facility] Work Phone: Start: 01-18-2024 End: 01-20-2024 Evaluation and management of inpatient DO Jazmin العلي Work Phone: [facility] [place] [facility] Work Phone: Start: 12-17-2023 End: 12-17-2023 ambulatory Yesica Astudillo MD Facility:[facility] Start: 11-27-2023 End: 11-27-2023 ambulatory DO Jazmin العلي Work Phone: [facility] Work Phone: Start: 11-27-2023 End: 11-27-2023 Patient encounter procedure DO Jazmin العلي Work Phone: [facility] Work Phone: Start: 11-22-2023 End: 11-22-2023 ambulatory DO Jazmin العلي Work Phone: [facility] Work Phone: Start: 11-22-2023 End: 11-22-2023 Patient encounter procedure DO Jazmin العلي Work Phone: [facility]-Pacemaker Check Start: 11-21-2023 End: 11-21-2023 ambulatory DO Jazmin العلي Work Phone: [facility] Work Phone: Start: 11-21-2023 End: 11-21-2023 Patient encounter procedure DO Jazmin العلي Work Phone: [facility]-MRI [facility] [place] Work Phone: Start: 09-24-2023 End: 09-24-2023 ambulatory DO Jazmin Ball Work Phone: [facility] Work Phone: Start: 09-24-2023 End: 09-24-2023 Patient encounter procedure DO Jazmin العلي Work Phone: [facility]-Pacemaker Check Start: 09-19-2023 End: 09-19-2023 Office outpatient visit 25 minutes Debbie Mac MD Work Phone: [facility] Comment on above: Persistent atrial fi brillation (CMS/HCC) (Primary Dx); 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); Chronic diastolic heart failure (CMS/HCC); Essential hypertension, benign; Mixed hyperlipidemia; Pacemaker; Sinus bradycardia; Single vessel coronary artery disease Start: 2023 End: 2023 ambulatory DO Jazmin العلي Work Phone: [facility] Work Phone: Start: 2023 End: 2023 Patient encounter procedure DO Jazmin العلي Work Phone: [facility]-Pacemaker Check Start: 08-24-2023 End: 08-24-2023 ambulatory Jazmin العلي Other [employer] Other Start: 08-24-2023 Telephone encounter Jazmin العلي [facility] Start: 08-21-2023 End: 08-21-2023 Subsequent hospital visit by physician Chanell Stroud Echo/Vasc Room 2 [facility] Comment on above: Chronic diastolic he art failure (CMS/HCC); Essential hypertension, benign; Dyspnea, unspecified type Start: 08-19-2023 End: 08-19-2023 ambulatory Negin Garcia Other [employer] Other Start: 08-19-2023 Patient encounter procedure Negin Garcia [facility] Start: 08-19-2023 End: 08-19-2023 Patient encounter procedure DO Jazmin العلي Work Phone: [facility] Work Phone: Start: 07-25-2023 End: 07-25-2023 Patient encounter procedure DO Jazmin العلي Work Phone: [facility] Work Phone: Start: 06-29-2023 End: 06-29-2023 ambulatory Jazmin العلي Other [employer] Other Start: 06-29-2023 Nursing evaluation o f patient and report Jazmin العلي [facility] Start: 05-31-2023 End: 05-31-2023 Office outpatient visit 25 minutes Debbie Mac MD Work Phone: [facility] Comment on above: Persistent atrial [...] 05-25-2023 End: 05-25-2023 ambulatory Jazmin العلي Other [employer] Other Start: 05-25-2023 Telephone encounter Jazmin [facility] Start: 04-20-2023 Rx Renewal Jazmin Jovani Bal l Work Phone: [facility] 250 DO Work Phone: Start: 04-18-2023 Rx Renewal Jazmin E Bal l Work Phone: [facility] 250 DO Work Phone: Start: 04-12-2023 End: 04-12-2023 ambulatory Jazmin العلي Other [employer] Other Start: 04-12-2023 Telephone encounter Jazmin [facility] Start: 04-10-2023 End: 04-10-2023 ambulatory Jazmin العلي Other [employer] Other Start: 04-10-2023 Telephone encounter Jazmin [facility] Start: 03-21-2023 End: 03-21-2023 ambulatory Jazmin العلي Other [employer] Other Start: 03-21-2023 Patient encounter procedure Jazmin العلي [facility] Start: 03-13-2023 End: 03-13-2023 ambulatory Jazmin العلي Other [employer] Other Start: 03-13-2023 Telephone encounter Jazmin [facility] Start: 03-05-2023 Telephone encounter Jazmin [facility] Start: 03-05-2023 End: 03-05-2023 Admission to same day surgery center DO Jazmin العلي Work Phone: [facility]-Surgery [place] Start: 03-05-2023 End: 03-05-2023 ambulatory DO Jazmin العلي Work Phone: [facility] Work Phone: Start: 02-26-2023 End: 02-26-2023 ambulatory DO Jazmin العلي Work Phone: [facility] Work Phone: Start: 02-26-2023 End: 02-26-2023 Patient encounter procedure DO Jazmin العلي Work Phone: [facility]-Pre-Surgical Testing Work Phone: Start: 02-26-2023 Rx Renewal Jazmin Hahn Bal l Work Phone: [facility] 250 DO Work Phone: Start: 01-25-2023 Office outpatient vi sit 25 minutes Jazmin Hahn Tyson Work Phone: [facility] Work Phone: Start: 01-09-2023 End: 01-09-2023 Admission to same day surgery center DO Jazmin Ball Work Phone: [facility]-Accounts Adjustable Clerk Work Phone: Start: 01-03-2023 End: 01-04-[address] JAZMIN العلي Facility:[facility]1 Start: 01-02-2023 End: 01-03-[address] JAZMIN العلي Facility:[facility] Start: 12-25-2022 Office outpatient ne w 45 minutes Jazmin العلي Work Phone: [facility] Work Phone: Start: 12-25-[address] Jazmin العلي Facility:[id number] Start: 12-11-2022 End: 12-11-2022 ambulatory DO Jazmin Tyson Work Phone: [facility] Work Phone: Start: 12-11-2022 End: 12-11-2022 Patient encounter procedure DO Jazmin العلي Work Phone: [facility]-Pacemaker Check Start: 11-27-2022 Telephone encounter Jazmin [facility] Start: 11-27-2022 End: 11-27-2022 Admission to same day surgery center DO Jazmin العلي Work Phone: [facility]-Surgery Center [facility] [place] Start: 11-27-2022 End: 11-27-2022 ambulatory DO Jazmin العلي Work Phone: [facility] [employer] Other Start: 11-20-2022 End: 11-20-2022 ambulatory DO Jazmin العلي Work Phone: [facility] Work Phone: Start: 11-20-2022 End: 11-20-2022 Patient encounter procedure DO Jazmin العلي Work Phone: [facility]-Pre-Surgical Testing Work Phone: Start: 10-30-2022 Telephone encounter Jazmin العلي [facility] Start: 10-30-2022 End: 10-30-2022 ambulatory DO Jazmin العلي Work Phone: [facility] Work Phone: Start: 10-30-2022 End: 10-30-2022 Patient encounter procedure DO Jazmin العلي Work Phone: [facility]-CT [address] Work Phone: Start: 10-24-2022 End: 10-24-2022 ambulatory Rachel Larios Other [employer] Other Start: 10-24-2022 Office outpatient vi sit 15 minutes Rachel CRUZ [facility] Start: 10-16-2022 End: 10-17-[address] JAZMIN العلي Facility: Start: 10-13-2022 Office outpatient vi sit 25 minutes Jaz[facility] ال[facility]لي [facility] Work Phone: Start: 10-10-2022 End: 10-10-2022 ambulatory Jazmin Tyson Other [employer] Other Start: 10-10-2022 Telephone encounter Jazmin [facility] Start: 09-27-2022 Patient encounter procedure [facility]لي [facility] Work Phone: Start: 09-24-2022 End: 09-24-2022 ambulatory Jazmin العلي Other [employer] Other Start: 09-24-2022 Telephone encounter Jazmin Joseph [facility] Start: 09-17-2022 End: 09-21-2022 Evaluation and management of inpatient DO Jazmin العلي Work Phone: [facility] [place] [facility] Work Phone: Start: 09-12-2022 End: 09-12-2022 ambulatory Jazmin العلي Other [employer] Other Start: 09-12-2022 Office outpatient vi sit 25 minutes Jazmin CRUZ [facility] Start: 09-11-2022 End: 09-11-2022 ambulatory DO Jazmin العلي Work Phone: [facility] Work Phone: Start: 09-11-2022 End: 09-11-2022 Patient encounter procedure DO Jazmin العلي Work Phone: [facility]-Pacemaker Check Start: 09-08-2022 End: 09-08-2022 ambulatory Jazmin العلي Other [employer] Other Start: 09-08-2022 Telephone encounter Jazmin العلي [facility] Start: 09-01-2022 End: 09-06-2022 Evaluation and management of inpatient DO Jazmin العلي Work Phone: [facility]-4 [place] [facility] Work Phone: Start: 08-25-2022 Telephone encounter Jazmin العلي Work Phone: [facility] 250 DO Work Phone: Start: 08-24-2022 Patient encounter procedure Jazmin العلي Work Phone: [facility] 250 DO Work Phone: Start: 06-26-2022 Office outpatient vi sit 25 minutes Jazmin العلي Work Phone: [facility] 250 DO Work Phone: Start: 06-09-2022 End: 06-09-2022 ambulatory DO Jazmin العلي Work Phone: [facility] Work Phone: Start: 06-09-2022 End: 06-09-2022 Patient encounter procedure DO Jazmin العلي Work Phone: [facility]-Pacemaker Check Start: 05-12-2022 End: 05-13-[address] JAZMIN العلي Facility:[facility]1 Start: 05-01-2022 Adult health examination Jazmin العلي Other [employer] Other Start: 04-27-2022 End: 04-27-2022 ambulatory John Mims Other [employer] Other Start: 04-27-2022 Office outpatient vi sit 25 minutes John Mims [facility] Start: 04-20-2022 End: 04-20-[address] RACHEL LARIOS Facility:[facility]1 Start: 03-27-2022 Rx Renewal Jazmin rosen Work Phone: [facility] [employer] 250 DO Work Phone: Start: 03-16-2022 End: 03-16-2022 ambulatory John Mims Other [facility] [employer] Other Start: 03-16-2022 Telephone encounter John feliciano [facility] G[facility] Start: 03-10-2022 Office outpatient vi sit 25 minutes Jazmin العلي Work Phone: [facility] [employer] 250 DO Work Phone: Start: 03-09-2022 End: 03-09-2022 Patient encounter procedure DO Jazmin العلي Work Phone: [facility]-Digestive Health Start: 03-09-2022 End: 03-09-2022 Patient encounter procedure DO Jazmin Tyson Work Phone: [facility]-Pacemaker Check Start: 02-28-2022 End: 02-28-2022 ambulatory John Mims Other [facility] [employer] Other Start: 02-28-2022 Office outpatient vi sit 25 minutes John Mims [facility] Start: 02-16-2022 End: 02-16-2022 Patient encounter procedure DO Jazmin Ball Work Phone: [facility]-XRay [facility] Start: 01-25-2022 End: 01-26-[address] Wolf [facility] Facility: Start: 01-19-2022 End: 01-19-2022 Patient encounter procedure DO Jazmin Ball Work Phone: [facility]-XRay [facility] Start: 01-11-2022 End: 01-12-[address] JAZMIN العلي Facility:[facility]1 Start: 01-03-2022 End: 01-03-2022 Patient encounter procedure DO Jazmin العلي Work Phone: [facility]-Digestive Health Start: 12-30-2021 End: 12-30-2021 Patient encounter procedure DO Jazmin العلي Work Phone: [facility]-Pre-Surgical Testing Start: 11-21-2021 End: 11-21-2021 Patient encounter procedure DO Jazmin العلي Work Phone: [facility]-Pacemaker Check Start: 10-19-2021 Office outpatient vi sit 25 minutes Jazmin العلي Work Phone: [facility] 250 DO Work Phone: Start: 08-15-2021 Patient encounter procedure Jazmin العلي Work Phone: [facility] 250 DO Work Phone: Start: 07-26-2021 Rx Renewal Jazmin rosen Work Phone: [facility] 250 DO Work Phone: Start: 07-06-2021 Postop follow up vis it related to original px Jazmin العلي Work Phone: [facility] 250 DO Work Phone: Start: 06-28-2021 Chart Update Jazmin rosen Work Phone: [facility] [place] Work Phone: Start: 06-26-2021 Chart Update Jazmin rosen Work Phone: [facility] [facility] Work Phone: Start: 06-24-2021 Chart Update Jazmin rosen Work Phone: [facility] [facility] Work Phone: Start: 06-24-2021 Chart Update Jazmin rosen Work Phone: [facility] [place] [facility] [facility] Work Phone: Start: 06-23-2021 Chart Update Jazmin rosen Work Phone: [facility] 250A [place] Work Phone: Start: 06-23-2021 SURGNONUH, Provider: Debbie Mac, Status: Pen, Time: 10:00 AM Jazmin العلي Work Phone: [facility] 250[facility] [place] Work Phone: Start: 06-22-2021 Chart Update Jazmin rosen Work Phone: [facility] [facility] [place] Work Phone: Start: 06-13-2021 Telephone encounter Jazmin العلي Work Phone: [facility] 250A [place] Work Phone: Start: 06-06-2021 Patient encounter procedure Jazmin العلي Work Phone: [facility] 250 DO Work Phone: Start: 05-25-2021 Telephone encounter Debbie singletary MD Work Phone: [facility] 250 DO Work Phone: Start: 07-26-2020 End: 07-31-2020 Evaluation and management of inpatient JAZMIN العلي Facility:[facility] Procedures Date Procedure Procedure Detail Performing [...] Debbie Mac MD Work Phone: Start: 08-21-2023 Echo tthrc [...] Phone: Start: 09-01-2022 Plain chest X-ray DO Jamzin العلي Work Phone: Start: 03-09-2022 DH Fibroscan DO Jazmin العلي Work Phone: Start: 01-03-2022 Esophageal manometry DO Jazmin العلي [employer] Phone: Start: 07-30-2020 MEASUREMENT OF CARDIAC TOTAL ACTIVITY, EXTERNAL APPROACH TANNER SHARON Start: 07-28-2020 INTRODUCTION OF OTHER GAS INTO RESP TRACT, VIA OPENING JELANI WOO Start: 07-28-2020 Holiness of Cardiac Rhythm, Single SANJUANA CARRERO Start: 07-28-2020 ULTRASONOGRAPHY OF RIGHT AND LEFT HEART, TRANSESOPHAGEAL SANJUANA CARRERO Start: 06-20-2017 Screening for osteoporosis Jazmin [employer]عل[employer] Other Start: 09-13-2016 General examination of patient Jazmin العلي Other Start: 05-21-2015 Screening mammography Jzamin العلي Other Appendectomy Jazmin العلي Work Phone: [...] DTaP/Tdap/Td Vaccines (2 - Td or Tdap) [facility] Start: 07-11-2031 DTaP/Tdap/Td Vaccines (3 - Td or Tdap) DTaP/Tdap/Td Vaccines (3 - Td or Tdap) [facility] Start: 07-11-2031 Tetanus vaccination Tetanus (Td or Tdap) [facility] Start: 04-28-2026 Creatinine measurement Creatinine Level [facility] Start: 04-28-2026 Diabetes mellitus screening Diabetes Screening [facility] Start: 04-28-2026 Potassium measurement Potassium Level [facility] Start: 07-23-2025 End: 07-23-2025 Patient encounter procedure 07/23/2025 4:20 PM EST Procedure Visit [facility] [address] [facility] [address] [place] [address] Joseph Sepulveda DPM [address] [facility] [address] [place] [address] [facility] Start: 05-29-2025 End: 05-29-2025 Patient encounter procedure 05/29/2025 2:15 PM EDT Off [place] Visit [facility] [address] [id number] Maxwell Medrano MD [address] [place] [id number] [facility] Start: 05-28-2025 End: 05-28-2025 Admission to same day surgery center 05/28/2025 8:30 AM EDT - 05/28/2025 12:30 PM EDT Surgery [facility] [address] [place] [address] Maxwell Medrano MD [address] [place] [id number] Ablation A-Fib [71609 (CPT )] [facility] Comment on above: Ablation A-Fib [53060 (CPT )] Start: 05-28-2025 Subsequent hospital visit by physician 05/28/2025 8:30 AM EDT Hospital Encounter [facility] [address] [place] [address] Maxwell Medrano MD [address] [place] [id number] Persistent atrial fibrillation (Multi) [facility] Comment on above: Persistent atrial fibrillation (Multi) Start: 05-27-2025 End: 05-27-2025 Patient encounter procedure 05/27/2025 11:30 AM EDT Appointment [facility] [address] [place] [address] Arron Veloz MD [address] [facility] Medical Office Bld[address], [address] [place] [address] [facility] Start: 05-26-2025 End: 05-26-2025 Patient encounter procedure 05/26/2025 2:40 PM EDT Off ice Visit [facility] [address] [facility] 250 [place] [address] Debbie Mac MD [address] [facility] [address], [address] [place] [address] [facility] Start: 05-21-2025 End: 05-21-2025 Patient encounter procedure 05/21/2025 11:15 AM EDT Office Visit [facility] [address] [facility] [address] [place] [address] Maxwell Medrano MD [address] [facility] [address] [place] [address] [facility] Start: 05-21-2025 End: 05-21-2025 Professional / ancillary services management 05/21/2025 11:00 AM EDT Ancillary Procedure [facility] Office Building [address] [facility] [address] [place] [address] [facility] Start: 05-20-2025 Influenza vaccination Influenza Vaccine (#1) [facility] Start: 05-07-2025 End: 05-07-2025 Patient encounter procedure 05/07/2025 3:00 PM EDT Off ice Visit [facility] [address] [facility] [address] [place] [id number] Joseph Sepulveda, NICK [address] [facility] 5 [place] [address] [facility] Start: 04-25-2025 End: 10-23-2025 Cardiac Device Check - In Clinic Cardiac Device Check - In Clinic Implantable Cardiac Device Routine Pacemaker Expected: 04/25/2025 (Approximate), Expires: 10/23/2025 [facility] Work Phone: Comment on above: Expected: 04/25/2025 (Approximate), Expi res: 10/23/2025 Start: 04-23-2025 End: 04-23-2025 Patient encounter procedure 04/23/2025 11:30 AM EDT Procedure Visit [facility] [address] [facility] [address] [place] [address] Joseph Sepulveda DPM [address] [facility] [address] [place] [address] [facility] Start: 04-20-2025 COVID-19 Vaccine ( season) COVID-19 Vaccine ( season) [facility] Start: 04-20-2025 COVID-19 Vaccine ( season) COVID-19 Vaccine ( season) [facility] Start: 04-20-2025 Influenza vaccination [facility] Start: 03-27-2025 Creatinine measurement Creatinine Level [facility] Start: 03-27-2025 Diabetes mellitus screening Diabetes Screening [facility] Start: 03-27-2025 Potassium measurement Potassium Level [facility] Start: 03-05-2025 End: 03-05-2025 Patient encounter procedure 03/05/2025 3:00 PM EDT Off [place] Visit [facility] [address] [place] [address] Debbie Mac MD [address] [facility] [address] [place] [address] [facility] Start: 02-23-2025 End: 02-23-2025 Patient encounter procedure 02/23/2025 3:00 PM EDT Off ice Visit [facility] [address] [facility] [address] [place] [address] Cristiana Chapa, BUSINESS 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-PROPERTY INVESTOR [address] [facility] [address] [place] [address] [facility] Start: 02-12-2025 End: 02-12-2025 Patient encounter procedure 02/12/2025 10:30 AM EDT Office Visit [facility] [address] [facility] [address] [place] [address] Joseph Sepulveda DPM [address] [facility] 5 [place] [address] Arrived [facility] Comment on above: Arrived Start: 02-06-2025 Echocardiography Echocardiogram [facility] Start: 02-01-2025 [facility] Start: 01-31-2025 [facility] Start: 01-30-2025 [facility] Start: 01-29-2025 [facility] Start: 01-28-2025 [facility] Start: 01-27-2025 [facility] Start: 01-26-2025 Comprehensive metabolic 2000 panel - Serum or Plasma [facility] Start: 01-26-2025 [facility] Start: 01-25-2025 Comprehensive metabolic 2000 panel - Serum or Plasma [facility] Start: 01-25-2025 [facility] Start: 01-24-2025 Comprehensive metabolic 2000 panel - Serum or Plasma [facility] Start: 01-24-2025 [facility] Start: 01-23-2025 End: 01-23-2025 [facility] Start: 01-22-2025 Hospital admission [facility] Start: 01-22-2025 Referral to diesel engine tester [facility] Start: 01-22-2025 [facility] Start: 01-18-2025 Echocardiography Echocardiogram [facility] Start: 12-31-2024 End: 12-31-2024 Telemedicine consultation with patient 12/31/2024 8:45 AM EDT Telemedicine [facility] General Surgery [address] [place] [address] Nigel El MD [address] [place] [address] [facility] General Surgery Start: 12-30-2024 End: 12-30-2024 Telemedicine consultation with patient 12/30/2024 10:00 AM EDT Telemedicine [facility] General Surgery [address] [place] [address] Nigel El MD [address] [place] [address] [facility] General Surgery Start: 12-16-2024 End: 12-16-2024 Telemedicine consultation with patient 12/16/2024 2:15 PM EDT Telemedicine [facility] Surgery General [address] [place] [address] Nigel El MD [address] [place] [address] [facility] Surgery General Start: 12-08-2024 End: 12-08-2024 Admission to same day surgery center 12/08/2024 10:32 AM EDT - 12/08/2024 11:02 AM EDT Surgery [facility] [address] [place] [address] Nigel El MD [address] [place] [address] ESOPHAGOGASTRODUODENOSCOPY WITH ENDOFLIP [facility] Comment on above: ESOPHAGOGASTRODUODENOSCOPY WITH ENDOFLIP Start: 12-08-2024 Subsequent hospital visit by physician 12/08/2024 10:32 AM EDT Hospital Encounter [facility] [address] [place] [address] Nigel El MD [address] [place] [address] [facility] Start: 12-08-2024 End: 12-08-2024 Esophgl balo distension dx std w/provocation [facility] Start: 12-04-2024 End: 06-05-2025 Cardiac Device Check - In Clinic Cardiac Device Check - In Clinic Implantable Cardiac Device Routine Pacemaker Expected: 12/04/2024, Expires: 06/05/2025 [facility] Service Area Work Phone: Comment on above: Expected: 12/04/2024, Expires: Start: 10-23-2024 End: 10-23-2025 Basic metabolic 2000 panel - Serum or Plasma Basic Metabolic Panel Lab Routine Persistent atrial fibrillation (Multi) Expected: 10/23/2024 (Approximate), Expires: 10/23/2025 [facility] Work Phone: Comment on above: Expected: 10/23/2024 (Approximate), Expi res: 10/23/2025 Start: 10-23-2024 End: 10-23-2025 CBC panel - Blood by Automated count CBC Lab Routine Persistent atrial fibrillation (Multi) Expected: 10/23/2024 (Approximate), Expires: 10/23/2025 [facility] Work Phone: Comment on above: Expected: 10/23/2024 (Approximate), Expi res: 10/23/2025 Start: 10-23-2024 End: 10-23-2025 Creatinine [Mass/volume] in Serum or Plasma Creatinine, Serum Lab Routine Persistent atrial fibrillation (Multi) High risk medication use Expected: 10/23/2024 (Approximate), Expires: 10/23/2025 [facility] Work Phone: Comment on above: Expected: 10/23/2024 (Approximate), Expi res: 10/23/2025 Start: 10-23-2024 End: 10-23-2025 CT Heart for congenital disease W contrast IV CT heart structure morphology congenital heart disease w IV contrast Imaging Routine Persistent atrial fibrillation (Multi) Expected: 10/23/2024, Expires: 10/23/2025 [facility] Work Phone: Comment on above: Expected: 10/23/2024, Expires: Start: 10-23-2024 End: 10-23-2025 Prothrombin time (PT) Protime-INR Lab Routine Persistent atrial fibrillation (Multi) Expected: 10/23/2024 (Approximate), Expires: 10/23/2025 [facility] Work Phone: Comment on above: Expected: 10/23/2024 (Approximate), Expi res: 10/23/2025 Start: 10-23-2024 End: 10-23-2025 US Heart Transesophageal Transesophageal Echo (VIRA) Echocardiography Routine Persistent atrial fibrillation (Multi) Expected: 10/23/2024, Expires: 10/23/2025 [facility] Work Phone: Comment on above: Expected: 10/23/2024, Expires: Start: 10-23-2024 End: 10-23-2024 Professional / ancillary services management 10/23/2024 12:20 PM EST Ancillary Procedure [facility] [address] [facility] [address] [place] [address] [facility] Start: 10-23-2024 End: 10-23-2024 Patient encounter procedure 10/23/2024 11:00 AM EST Office Visit [facility] [address] [facility] [address] [place] [address] Maxwell Medrano MD [address] [facility] [address] [place] [address] [facility] Start: 09-05-2024 End: 09-05-2025 Complete Pulmonary Function Test (Spirometry/DLCO/Lung Volumes) Complete Pulmonary Function Test (Spirometry/DLCO/Lung Volumes) PFT Routine Persistent atrial fibrillation (Multi) High risk medication use Expected: 09/05/2024 (Approximate), Expires: 09/05/2025 [facility] Service Area Work Phone: Comment on above: Expected: 09/05/2024 (Approximate), Expi res: 09/05/2025 Start: 09-05-2024 End: 09-05-2025 Thyrotropin [Units/volume] in Serum or Plasma Thyroid Stimulating Hormone Lab Routine Persistent atrial fibrillation (Multi) High risk medication use Expected: 09/05/2024 (Approximate), Expires: 09/05/2025 [facility] Work Phone: Comment on above: Expected: 09/05/2024 (Approximate), Expi res: 09/05/2025 Start: 09-04-2024 End: 09-04-2024 Patient encounter procedure 09/04/2024 1:50 PM EST Off ice Visit [facility] [address] [facility] [address] [place] [address] Debbie Mac MD [address] [facility] [address], [address] [place] [address] [facility] Start: 08-21-2024 Echocardiography Echocardiogram [facility] Start: 07-24-2024 [facility] Start: 07-23-2024 Referral to spa therapist [facility] Start: 07-22-2024 Administration of prophylactic treatment [facility] Start: 07-21-2024 [facility] Start: 07-21-2024 Referral to diesel engine tester [facility] Start: 07-21-2024 Hospital admission [facility] Start: 07-07-2024 End: 07-07-2024 Patient encounter procedure 07/07/2024 10:30 AM EST Office Visit [facility] [address] [facility] [address] [place] [address] Cristiana Chapa, BUSINESS 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-PROPERTY INVESTOR [address] [facility] [address] [place] [address] [facility] Start: 07-03-2024 [facility] Start: 07-01-2024 [facility] Start: 07-01-2024 [facility] Start: 06-30-2024 [facility] Start: 06-30-2024 Physical therapy procedure [facility] Start: 06-30-2024 Referral to diesel engine tester [facility] Start: 06-30-2024 Referral to occupational therapist [facility] Start: 06-30-2024 End: 06-30-2024 [facility] Start: 06-30-2024 Hospital admission [facility] Start: 06-26-2024 Subsequent hospital visit by physician 06/26/2024 11:00 AM EST Hospital Encounter [facility] [address] [place] [address] [facility] Start: 06-05-2024 End: 06-05-2024 Patient encounter procedure 06/05/2024 12:00 PM EDT Office Visit [facility] [address] [address] Maxwell Medrano MD [address] [place] [address] [facility] Start: 05-16-2024 End: 05-16-2024 Patient encounter procedure 05/16/2024 10:00 AM EDT Office Visit [facility] [address] [facility] [address] [place] [address] Debbie Mac MD [address] [facility] [address] [place] [address] [facility] Start: 04-28-2024 End: 04-28-2024 Patient encounter procedure 04/28/2024 11:30 AM EDT Office Visit [facility] [address] [place] [address] Maxwell Medrano MD [address] [place] [address] [address] [place] [address] [facility] Start: 04-24-2024 End: 04-24-2024 Patient encounter procedure 04/24/2024 3:10 PM EDT Off [place] Visit [facility] [address] [facility] [address] [place] [address] Debbie Mac MD [address] [facility] [place] [address] [facility] Start: 04-20-2024 COVID-19 Vaccine ( season) COVID-19 Vaccine ( season) [facility] Start: 04-20-2024 COVID-19 Vaccine ( season) COVID-19 Vaccine ( season) [facility] Start: 04-20-2024 COVID-19 Vaccine ( season) COVID-19 Vaccine ( season) [facility] Start: 04-20-2024 Influenza vaccination Influenza Vaccine (#1) [facility] Start: 04-17-2024 End: 04-17-2025 Digoxin [Mass/volume] in Serum or Plasma Digoxin level Lab Routine High risk medication use Pacemaker Anticoagulation management encounter Longstanding persistent atrial fibrillation (Multi) Sinus bradycardia BMI 28.0-28.9,adult Never smoked any substance Expected: 04/17/2024 (Approximate), Expires: 04/17/2025 [facility] Service Area Work Phone: Comment on above: Expected: 04/17/2024 (Approximate), Expi res: 04/17/2025 Start: 04-07-2024 End: 04-07-2024 Patient encounter procedure 04/07/2024 9:45 AM EDT [place] Visit [address] [address] Maxwell Medrano MD [address] [place] [address] [facility] Start: 03-25-2024 End: 03-25-2024 Patient encounter procedure 03/25/2024 2:40 PM EDT Off [place] Visit [facility] [address] [place] [address] Debbie Mac MD [address] [place] [address] [facility] Start: 03-17-2024 End: 03-17-2024 Patient encounter procedure 03/17/2024 12:30 PM EDT Office Visit [address] [place] [address] Maxwell Medrano MD [address] [facility] [address] [place] [address] [facility] Start: 02-28-2024 End: 02-24-2025 ECG 12 Lead ECG 12 Lead ECG Routine Persistent atrial fibrillation (Multi) Expected: 02/28/2024 (Approximate), Expires: 02/24/2025 [facility] Service Area Work Phone: Comment on above: Expected: 02/28/2024 (Approximate), Expi res: 02/24/2025 Start: 02-28-2024 End: 02-28-2024 Professional / ancillary services management 02/28/2024 1:00 PM EDT Ancillary Procedure [place] [address] [facility] [address] [place] [address] [facility] Start: 01-20-2024 [facility] Start: 01-19-2024 [facility] Start: 01-18-2024 Referral to diesel engine tester [facility] Start: 01-18-2024 [facility] Start: 01-18-2024 Hospital admission [facility] Start: 11-28-2023 End: 11-28-2023 Patient encounter procedure 11/28/2023 3:10 PM EDT [place] Visit [address] [place] [address] Debbie Mac MD [address] [place] [address] [facility] Start: 09-19-2023 End: 09-19-2023 Patient encounter procedure 09/19/2023 1:00 PM EST Off [place] Visit [facility] [address] [place] [address] Debbie Mac MD [address] [place], [place] [id number] [facility] Start: 09-02-2023 Echocardiography Echocardiogram [facility] Start: 08-20-2023 Annual wellness visit Annual Wellness Visit ([id number]) [facility] Start: 07-05-2023 End: 07-05-2023 Patient encounter procedure 07/05/2023 1:30 PM EST Appointment [facility] [address] [place] [phone] [facility] Start: 05-31-2023 FUV, Provider: Debbie Mac, Status: Pen, Time: 3:00 PM FUV, Provider: Debbie Mac, Status: Pen, Time: 3:00 PM [facility] Work Phone: Start: 05-31-2023 End: 05-31-2025 US Heart Transthoracic Transthoracic Echo (TTE) Complete Echocardiography Routine Chronic diastolic heart failure (CMS/HCC) Essential hypertension, benign Dyspnea, unspecified type Expected: 05/31/2023 (Approximate), Expires: 05/31/2025 [facility] Service Area Work Phone: Comment on above: Expected: 05/31/2023 (Approximate), Expi res: 05/31/2025 Start: 05-09-2023 FUV, Provider: Maxwell Medrano, Status: Pen, Time: 4:00 PM FUV, Provider: Maxwell Medrano, Status: Pen, Time: 4:00 PM -[facility] [address] DO Work Phone: Start: 04-20-2023 COVID-19 Vaccine ( season) COVID-19 Vaccine ( season) [facility] Start: 04-20-2023 Influenza vaccination Influenza Vaccine (#1) [facility] Start: 04-04-2023 FUV, Provider: Maxwell Medrano, Status: Pen, Time: 3:00 PM FUV, Provider: Maxwell Medrano, Status: Pen, Time: 3:00 PM -[facility] 250 DO Work Phone: Start: 03-05-2023 [facility] Start: 03-05-2023 [facility] Start: 02-14-2023 FUV, Provider: Maxwell Medrano, Status: Pen, Time: 1:30 PM FUV, Provider: Maxwell Medrano, Status: Pen, Time: 1:30 PM [facility] Work Phone: Start: 01-09-2023 [facility] Start: 01-04-2023 FUV, Provider: Debbie Mac, Status: Pen, Time: 1:50 PM FUV, Provider: Debbie Mac, Status: Pen, Time: 1:50 PM [facility] 250 DO Work Phone: Start: 11-27-2022 Laparoscopic cholecystectomy OR Cholecystectomy Laparoscopic (Not Applicable) [facility] Start: 11-27-2022 End: 11-27-2022 [facility] Start: 10-13-2022 FUV, Provider: Debbie Mac, Status: Pen, Time: 10:30 AM FUV, Provider: Debbie Mac, Status: Pen, Time: 10:30 AM -[facility] 250 DO Work Phone: Start: 09-21-2022 [facility] Start: 09-17-2022 Hospital admission [facility] Start: 09-17-2022 Referral to diesel engine tester [facility] Start: 09-17-2022 Bacteria identified in Urine by Culture [facility] Start: 09-06-2022 [facility] Start: 09-05-2022 Blood chemistry [facility] Start: 09-05-2022 [facility] Start: 09-04-2022 Administration of prophylactic treatment [facility] Start: 09-04-2022 Blood chemistry [facility] Start: 09-04-2022 [facility] Start: 09-03-2022 Blood chemistry [facility] Start: 09-03-2022 [facility] Start: 09-02-2022 Blood chemistry [facility] Start: 09-02-2022 Brain natriuretic peptide measurement [facility] Start: 09-02-2022 Magnesium measurement [facility] Start: 09-02-2022 [facility] Start: 09-01-2022 Referral to diesel engine tester [facility] Start: 09-01-2022 Hospital admission [facility] Start: 09-01-2022 [facility] Start: 09-01-2022 Bacteria identified in Urine by Culture Urine Culture [facility] Start: 07-12-2022 FUV, Provider: Debbie Mac, Status: Pen, Time: 2:40 PM FUV, Provider: Debbie Mac, Status: Pen, Time: 2:40 PM [facility] [address] DO Work Phone: Start: 03-09-2022 [facility] Work Phone: Start: 02-22-2022 FUV, Provider: Debbie Mac, Status: Pen, Time: 2:50 PM FUV, Provider: Debbie Mac, Status: Pen, Time: 2:50 PM [facility] 250 DO Work Phone: Start: 01-08-2022 COVID-19 Vaccine (3 - Pfizer series) COVID-19 Vaccine (3 - Pfizer series) [facility] Start: 01-03-2022 [facility] Work Phone: Start: 10-19-2021 FUV, Provider: Debbie Mac, Status: Pen, Time: 3:30 PM FUV, Provider: Debbie Mac, Status: Pen, Time: 3:30 PM [facility] 250 DO Work Phone: Start: 09-12-2021 FUV, Provider: Debbie Mac, Status: Pen, Time: 2:50 PM FUV, Provider: Debbie Mac, Status: Pen, Time: 2:50 PM [facility] 250 DO Work Phone: Start: 07-26-2021 FUV, Provider: Debbie Mac, Status: Pen, Time: 2:00 PM [facility] 250 DO Work Phone: Start: 06-23-2021 SURGNONUH, Provider: Debbie Mac, Status: Pen, Time: 10:00 AM SURGNONUH, Provider: Debbie Mac, Status: Pen, Time: 10:00 AM [facility] [address] [place] Work Phone: Start: 11-08-2019 Pneumococcal Vaccine: 65+ Years (2 - PCV) Pneumococcal Vaccine: 65+ Years (2 - PCV) [facility] Start: 11-08-2019 Pneumococcal Vaccine: 65+ Years (2 of 2 - PCV) Pneumococcal Vaccine: 65+ Years (2 of 2 - PCV) [facility] Start: 2017 RSV High Risk: (Elderly (60+) or Population) (1 - 1-dose 75+ series) RSV High Risk: (Elderly (60+) or Population) (1 - 1-dose 75+ series) [facility] Start: 2017 RSV Vaccine (75+ years) RSV Vaccine (75+ years) [facility] Start: 2017 RSV vaccine (adult) (1 - 1-dose 75+ series) RSV vaccine (adult) (1 - 1-dose 75+ series) [facility] Start: 10-31-2012 Zoster Vaccines (2 of 3) Zoster Vaccines (2 of 3) [facility] Start: 2007 Pneumococcal vaccination Pneumococcal Vaccine(s) (65+ yrs) (1 of 1 - PCV) [facility] Start: 2007 Screening for osteoporosis [facility] Start: 2002 Hepatitis B (HBV) Vaccine (optional start 60+ years) Hepatitis B (HBV) Vaccine (optional start 60+ years) [facility] Start: 2002 Hepatitis B Vaccines (1 of 3 - Risk 3-dose series) Hepatitis B Vaccines (1 of 3 - Risk 3-dose series) [facility] Start: 2002 RSV patients and/or patients aged 60+ years (1 - 1-dose 60+ series) RSV patients and/or patients aged 60+ years (1 - 1-dose 60+ series) [facility] Start: 1992 Pneumococcal vaccination Pneumococcal Vaccine(s) (50+ [...] (1 of 2 - Risk 2-dose series) [facility] Start: 1961 Urine screening for protein CKD: Urine Protein Screening [facility] Start: 1960 Diabetes mellitus screening Diabetes Screening [facility] Start: 1942 Creatinine measurement Creatinine Level [facility] Start: 1942 Lipid panel Lipid Panel [facility] Start: 1942 Medicare Annual Wellness Visit Medicare Annual Wellness Visit (AWV) [facility] Start: 1942 Potassium measurement Potassium Level [facility] Start: 1942 Screening for osteoporosis Bone Density Scan [facility] Start: 1942 Thyroid stimulating hormone measurement TSH Level [facility] ABLATION A-FIB ABLATION A-FIB P ersistent atrial fibrillation (Multi) [facility] Work Phone: Albumin/Globulin ratio [facility] Anion gap measurement [facility] Basophils [#/volume] in Blood by Automated count [facility] Basophils/100 leukoc ytes in Blood by Automated count [facility] End: 12-04-2024 Cardiac Device Check - Remote Cardiac Device Check - R emote Implantable Cardiac Device Routine Pacemaker 52 Occurrences starting 06/05/2024 until 12/04/2024 [facility] Work Phone: Comment on above: 52 Occurrences starting 06/05/2024 until 12/04/2024 End: 09-08-2024 Cardiac Device Check - Remote [facility] Servi ce Area Work Phone: Comment on above: Once for 1 Occurrences starting 09/08/19 until 09/08/2024 End: 04-25-2025 Cardiac Device Check - Remote Cardiac Device Check - R emote Implantable Cardiac Device Routine Pacemaker 52 Occurrences starting 10/23/2024 until 04/25/2025 [facility] Service Area Work Phone: Comment on above: 52 Occurrences starting 10/23/2024 until 04/25/2025 Comprehensive metabo lic 2000 panel - Serum or Plasma [facility] End: 05-01-2025 Creatinine [Mass/volume] in Serum or Plasma [facility] Service Area Work Phone: Comment on above: Once (Lab) for 1 Occurrences starting until 05/01/2025 CT Abdomen and Pelvi s W contrast IV [facility] CT Abdomen and Pelvi s W contrast IV [facility] ECG 12 Lead ECG 12 Lead ECG Routine Persistent atrial fibrillation ([facility]) 02/23/2025 3:00 PM EDT [facility] Service Area Work Phone: Eosinophils/100 leuk ocytes in Blood by Automated count [facility] Ephys eval w/ablatio n ventricular tachycardia ABLATION A-FIB PAROXYSMAL Persistent atrial fibrillation (Multi) [employer] Adjustable Clerk Erythrocyte distribu tion width [Ratio] by Automated count [facility] Erythrocytes [#/volu me] in Blood [facility] Esophageal motility study w/interp&rpt ESOPHAGUS MOTILITY (MANOMETRY) STUDIES Procedures Routine Esophageal dysphagia 05/29/2024 3:48 PM EDT [employer] Work Phone: Esophagogastroduoden oscopy transoral diagnostic ESOPHAGOGASTRODUODENOSCOPY Esophageal dysphagia [facility] Esophgl balo distens ion dx std w/provocation ESOPHAGOGASTRODUODENOSCOPY WITH ENDOFLIP Esophageal dysphagia [employer] Globulin [Mass/volum e] in Serum [facility] Hematocrit [Volume F raction] of Blood [facility] Hemoglobin [Mass/vol ume] in Blood [facility] Hepatitis A virus an tibody, IgM type [facility] Work Phone: Hepatitis B core ant ibody measurement, IgM type [facility] Work Phone: Hepatitis B virus vieira rface Ag [Presence] in Serum or Plasma by Immunoassay [facility] Work Phone: Hepatitis C virus Ab Signal/Cutoff in Serum or Plasma by Immunoassay [facility] Work Phone: Hepatitis C virus RN A [log units/volume] (viral load) in Serum or Plasma by GUILLERMO with probe detection [facility] Work Phone: Hepatitis C virus RN A [Units/volume] (viral load) in Serum or Plasma by GUILLERMO with probe detection [facility] Work Phone: Homogenous nuclear A b pattern [Titer] in Serum [facility] Work Phone: Leukocytes [#/volume ] corrected for nucleated erythrocytes in Blood by Automated coun [facility] Leukocytes [#/volume ] in Blood [facility] Lymphocytes [#/volum e] in Blood by Automated count [facility] Lymphocytes/100 leuk ocytes in Blood by Automated count [facility] MCH [Entitic mass] b y Automated count [facility] MCHC [Mass/volume] b y Automated count [facility] MCV [Entitic volume] by Automated count [facility] Monocytes [#/volume] in Blood by Automated count [facility] Monocytes/100 leukoc ytes in Blood by Automated count [facility] Neutrophils [#/volum e] in Blood by Automated count [facility] Neutrophils/100 leuk ocytes in Blood by Automated count [facility] Nuclear Ab [Titer] in Serum [facility] Work Phone: Nucleated erythrocyt es [Presence] in Blood by Automated count [facility] Patient Education [facility] Work Phone: Patient referral [facility] Work Phone: Platelet mean volume [Entitic volume] in Blood by Automated count [facility] Platelets [#/volume] in Blood [facility] End: 08-21-2023 [facility] Service Area Work Phone: Comment on above: Once for 1 Occurrences starting 08/21/19 24 until 08/21/2023 [facility] Immunizations Immunization Date Immunization Notes Care Provider Rola marcus 06-29-2023 influenza, high dose seasonal, preservative-free Jazmin العلي Other [employer] Other 06-29-2023 influenza virus vaccine, unspecified formulation DO Jazmin العلي Work Phone: [facility] 05-26-2022 Fluad Quadrivalent 0 .5 ML Intramuscular Prefilled Syringe Jazmin العلي Work Phone: [facility] [place] [facility] DO Work Phone: 05-26-2022 influenza virus vaccine, split virus (incl. purified surface antigen) Jazmin العلي Other [employer] Other 05-26-2022 influenza virus vaccine, unspecified formulation Debbie Mac MD Work Phone: [facility] 11-13-2021 Comirnaty 30 MCG/0.3 ML Intramuscular Suspension Jazmin العلي Work Phone: [employer] [facility] 250 DO Work Phone: 11-13-2021 COVID-19 mRNA, Comirnaty (Pfizer) DO Jazmin العلي Work Phone: [facility] 07-11-2021 tetanus toxoid, redu maranda diphtheria toxoid, and acellular pertussis vaccine, adsorbed Jazmin العلي Work Phone: [facility] 06-14-2021 influenza virus vaccine, split virus (incl. purified surface antigen) Jazmin العلي Other [facility] [employer] Other 06-14-2021 influenza virus vaccine, unspecified formulation DO Jazmin العلي Work Phone: [facility] 10-07-2020 Pfizer-BioNTech COVID-19 Vacc 30 MCG/0.3ML Intramuscular Suspension Jazmin العلي Work Phone: [facility] Comment on above: Series: 09-17-2020 COVID-19 Vaccine Moderna - Documentation Purposes Only Jazmin العلي Other [facility] 09-17-2020 Pfizer-BioNTech COVID-19 Vacc 30 MCG/0.3ML Intramuscular Suspension Jazmin العلي Work Phone: [facility] Comment on above: Series: 05-20-2020 influenza, seasonal, injectable Jazmin العلي Work Phone: [facility] 250 DO Work Phone: Comment on above: Series: 05-05-2020 Flu Vaccine - Adult DO George العلي Work Phone: [facility] 05-05-2020 influenza virus vaccine, split virus (incl. purified surface antigen) Jazmin العلي Other [facility] [employer] Other 05-05-2020 influenza virus vaccine, unspecified formulation DO Jazmin العلي Work Phone: [facility] 05-05-2020 influenza, seasonal, injectable Jazmin العلي Work Phone: [facility] 05-20-2019 influenza, high dose seasonal, preservative-free Jazmin العلي Work Phone: [place] [address] DO Work Phone: 11-07-2018 pneumococcal polysaccharide vaccine, 23 valent Jazmin العلي Work Phone: [facility] DO Work Phone: 06-12-2018 influenza virus vaccine, split virus (incl. purified surface antigen) Jamzin العلي Other [facility] [employer] Other 06-12-2018 influenza virus vaccine, unspecified formulation DO Jazmin العلي Work Phone: [facility] 06-12-2018 Seasonal trivalent influenza vaccine, adjuvanted, preservative free Jazmin العلي Work Phone: [facility] DO Work Phone: 05-20-2018 influenza, injectabl e, quadrivalent, preservative free Jazmin [facility] [employer] Work Phone: [place] [address] DO Work Phone: 06-21-2017 diphtheria, tetanus toxoids and acellular pertussis vaccine, unspecified formulation Jazmin العلي Other [facility] 07-06-2016 pneumococcal conjuga te vaccine, 13 valent Jazmin العلي Other [facility] 07-06-2016 pneumococcal Conjuga te, unspecified formulation; Translations: [Need for prophylactic vaccination against Streptococcus pneumoniae (pneumococcus)] Jazmin العلي Other [facility] [employer] Other 03-20-2015 pneumococcal polysaccharide vaccine, 23 valent Jazmin [facility] [employer] Work Phone: [facility] Work Phone: Comment on above: Series: 03-20-2014 influenza virus vaccine, unspecified formulation Jazmin العلي Work Phone: [facility] Work Phone: 06-24-2013 tetanus and diphther ia toxoids, adsorbed, preservative free, for adult use (5 Lf of tetanus toxoid and 2 Lf of diphtheria toxoid) Jazmin العلي Other [facility] 09-05-2012 zoster vaccine, live Arlette العلي Work Phone: [facility] 250 DO Work Phone: 07-29-2008 pneumococcal polysaccharide vaccine, 23 valent Jazmin العلي Other [facility] Payers Date Payer Category Payer Medicare [id number] 2024 Self-pay [id number] 2022 Medicare [id number] 2022 Medicare (Managed Care) 1.2. [id number] 2022 Unknown 2020 Medicare [id number] 2009 Unknown [id number] 1959 Private Health Insurance 101 [id number] 1942 Unknown [id number] 2.16.8 40.1.364247.3.579.2.647 1942 Unknown [id number] 2.16. 840.1.061257.3.579.2.356 1942 Unknown [id number] 2.16.84 0.1.472287.3.579.2.593 1942 Unknown [id number] 2.16.84 0.1.036837.3.579.2.593 1942 Unknown [id number] 2.16.84 0.1.154425.3.579.2.593 1942 Unknown [id number] 2.16.84 0.1.704829.3.579.2.593 1942 Unknown [id number] 2.16.84 0.1.100431.3.579.2.593 1942 Unknown [id number] 2.16.84 0.1.012172.3.579.2.593 1942 Unknown [id number] 2.16.84 0.1.412751.3.579.2.593 1942 Unknown [id number] 2.16.8 40.1.582072.3.579.2.1245 1942 Unknown [id number] 2.16. 840.1.181686.3.579.2.196 1942 Unknown [id number] 2.16. 840.1.077610.3.579.2.196 1942 Unknown [id number] 2.16. 840.1.740141.3.579.2.196 1942 Unknown [id number] 2.16. 840.1.798987.3.579.2.196 1942 Unknown [id number] 2.16. 840.1.565158.3.579.2.196 1942 Unknown [id number] 2.16. 840.1.523919.3.579.2.196 1942 Unknown [id number] 2.16. 840.1.145333.3.579.2.732 1942 Unknown [id number] 2.16. 840.1.482597.3.579.2.732 1942 Unknown [id number] 2.16. 840.1.750640.3.579.2.732 1942 Unknown [id number] 2.16. 840.1.132455.3.579.2.732 1942 Unknown [id number] 2.16. 840.1.490921.3.579.2.73 1942 Unknown [id number] 2.16. 840.1.781645.3.579.2.73 1942 Unknown [id number] 2.16. 840.1.400653.3.579.2.73 1942 Unknown [id number] 2.16. 840.1.475305.3.579.2. 1942 Unknown [id number] 2.16. 840.1.239140.3.579.2. 1942 Unknown [id number] 2.16. 840.1.385168.3.579.2. 1942 Unknown [id number] 2.16.8 40.1.859705.3.579.2.1245 1942 Unknown [id number] 2.16.8 40.1.874728.3.579.2.1245 1942 Unknown [id number] 2.16.8 40.1.615771.3.579.2.1245 1942 Unknown [id number] 2.16.8 40.1.701445.3.579.2.1245 1942 Unknown [id number] 2.16.8 40.1.662809.3.579.2.1245 1942 Unknown [id number] 2.16.8 40.1.463231.3.579.2.1245 1942 Unknown [id number] 2.16. 840.1.540340.3.579.2.1243 1942 Unknown [id number] 2.16. 840.1.937716.3.579.2.1243 1942 Unknown [id number] 2.16. 840.1.261884.3.579.2.1244 1942 Unknown [id number] 2.16. 840.1.413653.3.579.2.1244 1942 Unknown [id number] 2.16. 840.1.730082.3.579.2.1244 1942 Unknown [id number] 2.16. 840.1.193007.3.579.2.1244 1942 Unknown [id number] 2.16.8 40.1.176760.3.579.2.1259 1942 Unknown [id number] 2.16.8 40.1.208589.3.579.2.1259 Medicare [id number] Private Health Insurance [id number] Unknown [id number] 2.16.8 40.1.704418.3.579.2.531 Unknown [id number] 2.16.8 40.1.908467.3.579.2.531 Unknown [id number] 2.16.8 40.1.010531.3.579.2.531 Unknown [id number] 2.16.8 40.1.916823.3.579.2.531 Unknown [id number] 2.16.8 40.1.984472.3.579.2.531 Unknown [id number] 2.16.8 40.1.393731.3.579.2.531 Unknown [id number] 2.16.8 40.1.256007.3.579.2.531 Social History Date Type Detail Facility Start: 05-31-2023 End: 03-21-2024 No alcohol use No alcohol use -[facility] [address] DO Work Phone: Start: 08-22-2021 End: 05-31-2023 Tobacco smoking status NHIS Never smoked tobacco (finding) [facility] Start: 1940 Sex Assigned At Female [facility] Start: 05-31-2023 End: 03-21-2024 Sex Assigned At [facility] [employer] Other Start: 05-31-2023 End: 01-15-2024 Tobacco use and exposure Smokeless tobacco non-user [facility] Work Phone: Start: 05-31-2023 End: 02-23-2025 Alcohol intake Lifetime non-drinker (finding) [facility] Work Phone: Start: 1940 Sex Assigned At Not on file [facility] Work Phone: Start: 05-21-2023 End: 10-23-2024 Exposure to SARS-CoV-2 (event) Not sure [facility] How often to you hav e a drink containing alcohol? Never [facility] Start: 07-15-2022 How many standard drinks containing alcohol do you have on a typical day? Patient does not drink [facility] Work Phone: In the past 12 month s, was there a time when you were not able to pay the mortgage or rent on time? No [facility] Work Phone: Start: 04-23-2024 End: 01-23-2025 Sex Female (finding) [facility] Work Phone: Start: 02-21-2023 Alcohol Comment caffeine: none [facility] Medical Equipment Procedure Code Equipment Code Equipment Origin al Text Equipment Identifier Dates Insertion, pacemaker Endocardial pacing lead [id number] FDA Start: 06-29-2021 Insertion, pacemaker Endocardial pacing lead [id number] FDA Start: 06-29-2021 Insertion, pacemaker Dual-chambe r implantable pacemaker, rate-responsive [id number] FDA Start: 06-29-2021 Cystoscopy, with ureteral calculus manipulation and stent placement Polymeric ureteral stent [id number] FDA Start: 07-01-2021 Goals Date Patient Goal Desired Activity /State Personal health goal Functional Status Date Assessment Result Facility 01-23-2025 Functional status Patient at Baseline [facility] Work Phone: 07-24-2024 Functional status Patient at Baseline [facility] Work Phone: 07-03-2024 Functional status Patient at Baseline [facility] Work Phone: 06-30-2024 Functional status Disability Sta tus Patient at Baseline [facility] Work Phone: 03-27-2024 Are you deaf, or do you have serious difficulty hearing No 03/27/2024 1:02 PM Vera Figueroa, ROSA [facility] 03-27-2024 Are you blind, or do you have serious difficulty seeing, even when wearing glasses No 03/27/2024 1:02 PM Vera Fgiueroa, RN No [facility] Work Phone: 03-27-2024 Do you have serious difficulty walking or climbing stairs No 03/27/2024 1:02 PM Vera Figueroa, ROSA No [facility] Work Phone: 03-27-2024 Do you have difficul ty dressing or bathing No 03/27/2024 1:02 PM Vera Figueroa, ROSA No [facility] Work Phone: 03-27-2024 Because of a physica l, mental, or emotional condition, do you have difficulty doing errands alone such as visiting a physician's office or shopping No 03/27/2024 1:02 PM Vera Figueroa, ROSA No [facility] Work Phone: 06-02-2024 Functional status Patient at Baseline [facility] Work Phone: 09-21-2022 Functional status Patient at Baseline [facility] Work Phone: 09-06-2022 Functional status Patient at Baseline [facility] Work Phone: 09-02-2022 Functional status Bathing Patien t at Baseline [facility] Work Phone: Mental Status Date Assessment Result Facility 01-23-2025 Cognitive function Cognitive Sta tus Patient at Baseline [facility] Work Phone: 07-24-2024 Cognitive function Cognitive Sta tus Patient at Baseline [facility] Work Phone: 07-03-2024 Cognitive function Cognitive Sta tus Patient at Baseline [facility] Work Phone: 03-27-2024 Because of a physica l, mental, or emotional condition, do you have serious difficulty concentrating, remembering, or making decisions No 03/27/2024 1:02 PM EDT Vera Ang, RN [facility] Work Phone: 01-20-2024 Cognitive function Cognitive Sta tus Patient at Baseline [facility] Work Phone: 09-21-2022 Cognitive function Cognitive Sta tus Patient at Baseline [facility] Work Phone: 09-06-2022 Cognitive function Cognitive Sta tus Patient at Baseline [facility] Work Phone: Clinical Notes 06-21-2021 to [...] cardiac follow-up. She follows with her primary diesel engine tester Dr. Mac and Dr. Medrano. She was [...] procedure at that time. Recently admitted to [facility] 01/23/2025 with atrial flutter both RVR at [...] who recommends proceeding with PVI ablation at [facility]. Will proceed with previously placed CT scan [...] Heart Cath; Surgeon: Sonu Mendez MD; Location: [place] [facility] Account[facility] Adjustable Clerk; Service: Cardiovascular; Laterality: Left; CT ANGIO NECK [...] 10/19/2021 Pacemaker insertion documented in this encounter [facility] Work Phone: 02-12-2025 History of Present illness [...] by mouth Daily, Disp: , Rfl: HYDROcodone-acetaminophen ([place]) 10-325 MG tablet, 1 tablet, Disp: , [...] Resource Strain: Low Risk (03/21/2024) Received from [facility] Overall Financial Resource Strain (CARDIA) Difficulty of Paying Living Expenses: Not hard at all Food Insecurity: Not on file Transportation Needs: No Transportation Needs (03/24/2024) Received from [facility] PRAPARE - Transportation Lack of Transportation (Medical): No Lack of Transportation (Non-Medical): No Physical Activity: Not on file Stress: Not on file Social Connections: Not on file Intimate Partner Violence: Unknown (02/14/2024) Received from [facility] [place] Safety & Environment Fear of Current or Ex-Partner: Not on file Emotionally Abused: Not on file Physically Abused: Not on file Sexually Abused: Not on file Physically or Sexually Abused: Not on file Housing Stability: Low Risk (03/21/2024) Received from [facility] Housing Stability Vital Sign Unable to Pay [...] Joseph Sepulveda DPM documented in this encounter [facility] 01-23-2025 Consult note Note Date/Time January 23, 2025 11:20am [facility] [address] [place] [address] Cardiology Consult Note Signed Patient: Austin Golden MR#: [id number] : 1940 Acct:[id number] Age/Sex: 84 / F Adm Date: 5 Loc: 3T Room: [address] [place] [address] Type: ADM IN Attending Dr: Fahad Kim [...] comfortably. The patient was evaluated electrophysiology at [facility] Dr. Medrano and ablation was discussed. She [...] related to Xarelto and no constitutional symptoms. [facility] Medical History (Updated 01/23/25 @ 11:18 by [...] Phys. 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 (3) Esophageal [...] will be referred back to electrophysiology at [facility] for ablation of atrial fibrillation, the patient is agreeable, arrangements will be made through our office Code(s): I48.19 - Other persistent atrial fibrillation Documented By: Jimena Smith MD, [facility] 5 [id number] Signed By: <Electronically signed by MD CLAUDIA Smith> 01/23/25 [facility] Work Phone: 1(473) 722-466706-06-2025 [place] [address] Cardiology Consult Note Signed Patient: Austin Golden MR#: [id number] : 1940 Acct:[id number] Age/Sex: 84 / F Adm Date: 5 Loc: Room: [address] [place] [address] Type: ADM IN Attending Dr: Fahad Kim DO Copies to: DO Jimena Carias MD, [facility] Fahad Kim, ~ Cardiology HPI History of [...] comfortably. The patient was evaluated electrophysiology at [facility] Dr. Medrano and ablation was discussed. She [...] related to Xarelto and no constitutional symptoms. [facility] Medical History (Updated 01/23/25 @ 11:18 by [...] List clean-up per request of Phys. [facility]HR [facility] 2019 Problem List clean-up per request of Phys. EHR [facility] Atrial fibrillation with RVR Problem [...] List clean-up per request of Phys. EHR [facility] H/O eye surgery right eye Problem List clean-up per request of Phys. EHR Cmte History of cataract surgery marybeth eye Problem List clean-up per request of Phys. EHR [facility] History of appendectomy Problem List clean-up per request of Phys. EHR [facility] History of tonsillectomy Problem List clean-up per request of Phys. EHR Cmte H/O foot surgery left Problem List clean-up per request of Phys. EHR Cmte History of hysterectomy Problem List clean-up per request of Phys. EHR [facility] Family History Father Heart & renal disease, hypertensive, with heart fail/chron kidney dis Depression Sister Heart disease Mother Brain tumor Father Mother Social History Smoking Status: Never smoker Substance Use Type: None Substance Abuse Comment: etoh occasional Social History Comments: independent living at the [facility] Medications and Allergies Allergies No Known [...] mg PO DAILY #30 caps 09/17/24 [Rx Vxhweauan00/05/25] duloxetine 30 mg capsule,delayed release 30 mg [...] Lymph # (Auto) 1.4 1.1 (1.00-4.8) x10E3/uL [place] # (Auto) 0.6 0.5 (0.0-0.8) x10E3/uL Eos [...] @ 10 MG/HR 10 mls/hr IV .Q10H [facility] Rx#:[id number] Oral 200 / 200 Other: # Voids [...] Code(s): I25.10 - Atherosclerotic heart disease of holy cross coronary artery without angina pectoris (3) Esophageal [...] will be referred back to electrophysiology at [facility] for ablation of atrial fibrillation, the patient is agreeable, arrangements will be made through our office Code(s): I48.19 - Other persistent atrial fibrillation Documented By: Jimena Smith MD, [facility] 1110 Signed By: 01/23/[address] [place], [place] 2912606-06-2025 History and physical note Author Ángel Minaya [facility] Note Date/Time January 22, 2025 11:17 pm [facility] [address] [place] [address] Hospitalist H&P Signed Patient: Austin Golden MR#: [id number] : 1940 Acct:[id number] Age/Sex: 84 / F Adm Date: 5 Loc: ER Room: Type: [facility] ER Attending Dr: Copies to: MD Jazmin Connor DO Thomas D Kramer Jr, MD~ HPI DATE OF EXAMINATION: 01/22/25 CHIEF COMPLAINT: Shortness of breath HISTORY OF PRESENT ILLNESS: This is a 84-year-old female with significant past medical history of atrial fibrillation, CKD, coronary artery disease, anxiety, GERD, pulmonary hypertension, STONEY, hyperlipidemia, depression, hypertension, presented to [facility] ED with chief complaints of worsening shortness [...] negative unless noted below or in HPI [facility] Medical History (Updated 01/22/25 @ 23:17 by [...] List clean-up per request of Phys. EHR [facility] History of cardiac pacemaker in situ Presbyesophagus Hiatal hernia Restless leg Hyperlipemia Problem List clean-up per request of Phys. EHR Cmte CHF (congestive heart failure) Problem List clean-up per request of Phys. EHR Cmte Kidney stones removal of kidney stone R flank in 2021 Problem List clean-up per request of Phys. EHR [facility] Pacemaker Problem List clean-up per request of Phys. EHR Cmte Atrial fibrillation, persistent Problem List clean-up per request of Phys. EHR Cmte COVID-19 2019 Problem List clean-up per request of Phys. EHR [facility] Atrial fibrillation with RVR Problem List clean-up per request of Phys. EHR [facility] Hernia of abdominal wall Problem List clean-up per request of Phys. EHR [facility] Surgical History History of repair of hiatal hernia (~2014) History of left heart catheterization (~03/2024) LHC: LAD 40-50%, diagonal 70%, RCA 40-50%, normal LVEF - 03/2024 History of cholecystectomy 2022 History of colonoscopy 2011 History of cardiac catheterization Problem List clean-up per request of Phys. EHR [facility] H/O eye surgery right eye Problem List clean-up per request of Phys. EHR [facility] History of cataract surgery marybeth eye Problem List clean-up per request of Phys. EHR [facility] History of appendectomy Problem List clean-up per request of Phys. EHR [facility] History of tonsillectomy Problem List clean-up per request of Phys. EHR [facility] H/O foot surgery left Problem List clean-up per request of Phys. EHR Cmte History of hysterectomy Problem List clean-up per request of Phys. EHR [facility] Family History Father Heart & renal disease, hypertensive, with heart fail/chron kidney dis Depression Sister Heart disease Mother Brain tumor Father Mother Social History Smoking Status: Never smoker Substance Use Type: None Substance Abuse Comment: etoh occasional Social History Comments: independent living at the [place] Medications and Allergies Allergies No Known Allergies [...] % (Auto) 17.7 % (.) 01/22/25 20:54 [place] % (Auto) 7.9 % (.) 01/22/25 20:54 Eos % (Auto) 2.5 % (.) 01/22/25 20:54 Baso % (Auto) 1.2 % (.) 01/22/25 20:54 Nucleat RBC Rel Count 0.2 /100 WBC (0-0.5) 01/22/25 20:54 Neut # (Auto) 5.5 x10E3/uL (1.8-7.7) 01/22/25 20:54 Lymph # (Auto) 1.4 x10E3/uL (1.00-4.8) 01/22/25 20:54 [place] # (Auto) 0.6 x10E3/uL (0.0-0.8) 01/22/25 20:54 [...] hypertension, STONEY, hyperlipidemia, depression, hypertension, presented to [facility] ED with chief complaints of worsening shortness [...] signed by Ángel Minaya MD> 01/22/25 2311 [facility] Work Phone: 1(589) 181-174006-05-2025 [place] [address] Hospitalist H&P Signed Patient: Austin Golden MR#: [id number] : 1940 Acct:[id number] Age/Sex: 84 / F Adm Date: 5 Loc: ER Room: Type: [facility] ER Attending Dr: Copies to: MD Jazmin Connor DO Thomas D Kramer Jr, MD~ HPI DATE OF EXAMINATION: 01/22/25 CHIEF COMPLAINT: Shortness of breath HISTORY OF PRESENT ILLNESS: This is a 84-year-old female with significant past medical history of atrial fibrillation, CKD, coronary artery disease, anxiety, GERD, pulmonary hypertension, STONEY, hyperlipidemia, depression, hypertension, presented to [facility] ED with chief complaints of worsening shortnes [...] negative unless noted below or in HPI [facility] Medical History (Updated 01/22/25 @ 23:17 by [...] Social History Comments: independent living at the [facility] Medications and Allergies Allergies No Known [...] mg PO DAILY #30 caps 09/17/24 [Rx Xinfzbjnl60/05/25] duloxetine 30 mg capsule,delayed release 30 mg [...] % (Auto) 17.7 % (.) 01/22/25 20:54 [place] % (Auto) 7.9 % (.) 01/22/25 20: Eos % (Auto) 2.5 % (.) 01/22/25: Baso % (Auto) 1.2 % (.) 01/22/25 20: Nucleat RBC Rel Count 0.2 /100 WBC (0-0.5) 01/22/25 20: Neut # (Auto) 5.5 x10E3/uL (1.8-7.7) 01/22/25 20:54 Lymph # (Auto) 1.4 x10E3/uL (1.00-4.8) 01/22/25 20:54 [place] # (Auto) 0.6 x10E3/uL (0.0-0.8) 01/22/25 20: [...] hypertension, STONEY, hyperlipidemia, depression, hypertension, presented to [facility] ED with chief complaints of worsening shortnes [...] days): 4 Documented By: Ángel Minaya MD 01/22/255 Signed By: 01/22/25 2311 [facility]05-23-2025 Evaluation note* Diagnosis Onset Date Resolution Status [...] fibrillation resol phil January 09, 2025 2:26pm [facility] Work Phone: 1(144) 787-191805-23-2025 Evaluation note* Diagnosis Onset Date Resolution Status [...] response acute January 22, 2 025 10:45pm [facility] Work Phone: 1(440) 622-608705-23-2025 Evaluation note* Diagnosis Onset Date Resolution Status [...] 2025 1:35pm Acute hypoxic respiratory failure [place] January 22, 2025 10:45pm ASHD (arteriosclerotic heart [...] sinus syndrome acute January 22, 2025 10:45pm [facility] Work Phone: 1(570) 614-582005-20-2025 Evaluation + Plan note* Assessment & Plan Note - Nigel El MD - 01/06/2025 9:26 AM EDTAssociated Problem(s): History of repair of hiatal hernia -discussed risks/benefits of surgery--it is high risk due to her age and revisional nature of it -she will talk to her family and let me know if she'd like to proceed with surgery or just live with it [id number] Miscellaneous Notes* Assessment & Plan Note - Nigel El MD - 01/06/2025 9:26 AM EDTAssociated Problem(s): History of repair of hiatal hernia -discussed risks/benefits of surgery--it is high risk due to her age and revisional nature of it -she will talk to her family and let me know if she'd like to proceed with surgery or just live with it documented in this [id number] History of Present illness Narrative* Nigel El MD - 01/06/2025 9:21 AM EDT Phone numbers Preferred Documentation: Mode: Telephone Patient Patient Work Phone: Patient Cell Preferred phone: [phone] Consent: I confirmed patient understanding of the [...] OralBarium Sulfate 1 Tab Route: Oral FINDINGS: Partition Setter fluoroscopic spot images of the abdomen: Non-obstructive [...] Nigel El MD, FACS documented in this [id number] History of Present illness Narrative* Nigel El MD - 12/31/2024 8:43 AM EDT This encounter was opened in error. Patient was a No-Show. Please disregard. Called twice, left message to reschedule. Nigel El MD documented in this [id number] Evaluation + Plan note* Assessment & Plan Note - Nigel El MD - 12/30/2024 9:17 AM EDT Associated Problem(s): History of repair of hiatal hernia -Evidence of recurrence on imaging/EGD -discussed non-operative vs operative management, patient elects to [id number] Miscellaneous Notes* Assessment & Plan Note - Nigel El MD - 12/30/2024 9:17 AM EDTAssociated Problem(s): History of repair of hiatal hernia -Evidence of recurrence on imaging/EGD -discussed non-operative vs operative management, patient elects to documented in this [id number] History of Present illness Narrative* Nigel El MD - 12/30/2024 9:13 AM EDT This encounter was opened in error. Patient was a No-Show. Please disregard. Called many times, left message to reschedule. Nigel El MD documented in this [id number] Telephone encounter Note* Telephone Encounter - Domenica Gloria - 12/11/2024 9:38 AM EDT LVM 12/11 @ 9:30 cancelling appt. Left my number for r/s- SO [id number] Miscellaneous Notes* Telephone Encounter - Domenica Gloria - 12/11/2024 9:38 AM EDT LVM 12/11 @ 9:30 cancelling appt. Left my number for r/s- SO documented in this [id number] Hospital Discharge instructions* Discharge Instructions* Nigel El [...] please contact the endoscopy center Mon-Fri 7:30am-4pm [phone] or after hours [facility] number [phone] Severe abdominal pain that keeps getting worse Fever or any other signs of infection Nausea or vomiting blood Seeing persistent blood coming out of your rectum, with or without stool (some streaks or drops of blood may be expected) For any additional questions, please call the endoscopy center at [phone] Follow-up with your Primary Care Provider CC: Primary Care Provider: No primary care provider on file. * Attachments The following attachments cannot be sent through Care Everywhere. * Upper GI Endoscopy Discharge Instructions (Danish) * Moderate Sedation in Adults Discharge Instructions (Danish) * FALLSPREVENTION documented in this [id number] Miscellaneous Notes* OP Note - Nigel El MD - 12/08/2024 10:29 AM EDT Images from the original note were not included. 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 SHELLF[employer]ARMING: Nigel El MD ATTENDING:Nigel El MD Procedure(s): ESOPHAGOGASTRODUODENOSCOPY WITH ENDOFLIP INSTRUMENT: Scope #[id number] SEDATION: Anesthesia Assisted Pre-Op Diagnosis Codes: * [...] hernia without obstruction or gangrene (Primary Diagnosis) [831550] Hiatal hernia [970514] Gastroesophageal reflux disease without esophagitis [070296] TEE PATH SPECIMEN SENT: no SPECIMEN: None [...] please contact the endoscopy center Mon-Fri 7:30am-4pm [phone] or after hours general [facility] number [phone] Severe abdominal pain that keeps getting worse Fever or any other signs of infection Nausea or vomiting blood Seeing persistent blood coming out of your rectum, with or without stool (some streaks or drops of blood may be expected) For any additional questions, please call the endoscopy center at [phone] Follow-up with your Primary Care Provider CC: [...] were discussed with the patient and/or legal packaging sales representative. The risks, benefits and alternatives were reviewed. Questions regarding blood transfusions were answered. The patient /or the patient s legal packaging sales representative agree with the plan for transfusion of blood and/or blood components. documented in this [id number] Surgery Surgical operation note* OP Note - Nigel El MD - 12/08/2024 10:29 AM EDT Images from the original note were not included. Austin Golden 84 year old Surgical Contact Serial Number: [id number] Location: ENDO 04 Date: 12/08/2024 SUPERVISOR [employer]ARMING: Nigel El MD ATTENDING:Nigel El MD Procedure(s): ESOPHAGOGASTRODUODENOSCOPY WITH ENDOFLIP INSTRUMENT: Scope #[id number] SEDATION: Anesthesia Assisted Pre-Op Diagnosis Codes: * [...] hernia without obstruction or gangrene (Primary Diagnosis) [379757] Hiatal hernia [535882] Gastroesophageal reflux disease without esophagitis [312631] TEE PATH SPECIMEN SENT: no SPECIMEN: None [...] please contact the endoscopy center Mon-Fri 7:30am-4pm [phone] or after hours general [facility] number [phone] Severe abdominal pain that keeps getting worse Fever or any other signs of infection Nausea or vomiting blood Seeing persistent blood coming out of your rectum, with or without stool (some streaks or drops of blood may be expected) For any additional questions, please call the endoscopy center at [phone] Follow-up with your Primary Care Provider CC: Primary Care Provider: No primary care provider on file. PERSON COMPLETING NOTE: Nigel El MD 12/08/2024 at 10:41 AM Patient meets criteria for discharge/transfer: Nigel El MD [id number] History and physical note* Checo Sotomayor MD - 12/08/2024 10:08 AM EDT Images from the original note were not included. [facility] GENERAL SURGERY H&P Austin Golden [id number] History (HPI) Austin Golden is a 84 [...] El MD at 12/08/2024 10:16 AM EDT [employer] Work Phone: 1(270) 671-437804-21-2025 History and physical note* Checo Sotomayor MD - 12/08/2024 10:08 AM EDT Images from the original note were not included. [facility] GENERAL SURGERY H&P Austin Golden [id number] History (HPI) Austin Golden is a 84 [...] 12/08/2024 10:16 AM EDT documented in this [id number] Progress note* Blood Attestation - Ernesto Parker MD - 12/08/2024 9:57 AM EDT Blood Attestation: ATTESTATION OF INFORMED CONSENT FOR BLOOD: The transfusion of blood and/or blood components were discussed with the patient and/or legal packaging sales representative. The risks, benefits and alternatives were reviewed. Questions regarding blood transfusions were answered. The patient /or the patient s legal packaging sales representative agree with the plan for transfusion of blood and/or blood components. [facility] Work Phone: 1(695) 500-254604-08-2025 Telephone encounter Note* Telephone Encounter - Aidee [...] your last menstrual period? N/a Protocols used: Hdnesamu-L-UV SyjnrWynnmj90-47-0800 Miscellaneous Notes* Telephone Encounter - Aidee Pyle [...] your last menstrual period? N/a Protocols used: Puqnqqyv-I-DJ * Telephone Encounter - Bonnie Clarke RN [...] Triage Nurse. Thank you! documented in this [id number] Telephone encounter Note* Telephone Encounter - Bonnie Clarke RN - 11/25/2024 4:44 PM EDT What is the need: Situation: returning patients call Background: n/a Assessment: pt unable to provide three identifiers, states she is sick and to call back later. Recommendation: no advise given, RN offered to call 911 for patient, pt declined. Bonnie Clarke RN [id number] Telephone encounter Note* Telephone Encounter - Maria Eugenia Quach - 11/25/2024 4:31 PM EDT Caller: The Pt Symptoms: Pt states that she is not able to keep food down. Patient is requesting a call back from the Triage Nurse. Thank you! [id number] Telephone encounter Note* Telephone Encounter - Bonnie [...] last menstrual period? N/a Protocols used: Swallowing Jtclanwgxi-W-HC PqznoQggwvk26-33-8452 Miscellaneous Notes* Telephone Encounter - Bonnie Clarke [...] last menstrual period? N/a Protocols used: Swallowing Hgvdrgbztz-L-BQ * Telephone Encounter - Cristiana Vieira - 11/11/2024 4:10 PM EDT Caller warm-transferred to [facility] Nurse for Sx/Buzzword situation of: [...] Telephone Number: Telephone Information: documented in this [id number] Telephone encounter Note* Telephone Encounter - Cristiana Vieira - 11/11/2024 4:10 PM EDT Caller warm-transferred to [facility] Nurse for Sx/Buzzword situation of: [...] coming back Caller's Telephone Number: Telephone Information: [id number] History of Present illness Narrative* Maxwell Medrano MD - 10/23/2024 11:00 AM EST CARDIOLOGY OFFICE VISIT CHIEF COMPLAINT Chief Complaint Patient presents with Follow-up HISTORY OF PRESENT ILLNESS HPI 84-year-old female with a past medical history of hypertension, hyperlipidemia. Patient had a long history of atrial fibrillation for which she started seeing [facility] since 2020 aftershe was [facility]. Adjustment of her medical therapy [...] therapy. Patient is being evaluated recently at [facility] for ablation therapy for atrial fibrillation. [...] breath. She ended in the hospital at [facility]. During this admission she was in atrial flutter. Rates were controlled between 60 to 90 bpm. She underwent cardioversion with successful yarsani to sinus rhythm for at least a [...] evaluation. She in the mid admitted to [facility] in June 23, 2024 for shortness of breath. She underwent cardioversion July 02 with successful yarsani of sinus rhythm. Patient states that after cardioversion she did not notice any difference in her shortness of breath. She went home and then her symptoms got exacerbated and she ended up back at [facility] the beginning of July 2024 with shortness [...] She apparently saw a GI service from [facility]. They were planning to do a procedure but because of her symptoms improved she put her procedure on hold. For the last few days she started noticing again problems swallowing. Patient had a device interrogation today. She does have a [employer] medical dual-chamber pacemakerMedtronic with battery longevity 6 years 6 months. [place] of atrial fibrillation 44% of the time. [...] she is feeling much better from the computer engineering technician on point. She does not recall having [...] [facility] Work Phone: 1(568) 499-269403-06-2025 Instructions* Patient Instructions* Jenna Cheng MA - 10/23/2024 11:00 AM EST PVI ABLATION TO BE DONE BY DR. MEDRANO. PATIENT TO HAVE A CT ANGIO ANYTIME PRIOR TO PROCEDURE. VIRA TO BE DONE THE DAY BEFORE. TAKE ALL MEDICATIONS as USUAL. LABS TO BE DONE 1 WEEK PRIOR. documented in this [facility]Un[facility] Work Phone: 1(478) 678-178301-24-2025 Radiology Diagnostic study [facility] [place] [address] [place] [address] CT Scan Report Signed Patient: Austin Golden MR#: [id number] : 1940 Acct:[id number] Age/Sex: 83 / F ADM Date: 5 Loc: ER Room: Type: [facility] ER Attending Dr: Copies to: Gracia Craig [...] MD 09/12/24 1233 Signed By: 09/12/24 1237 [facility] Work Phone: 1(190) 787-803501-17-2025 History of Present illness Narrative* Debbie Mac [...] exam, discussion and plan. documented in this [facility] Work Phone: 1(343) 170-630101-17-2025 Instructions* Patient Instructions* Maggy Vee LPN - [...] routine Pft 6 months documented in this [facility] Work Phone: 1(488) 432-199412-30-2024 History of Present illness Narrative* Katie Yung MD - 08/18/2024 5:01 PM EST Documentation: Mode: Telephone Patient Patient Work Phone: Patient Cell Preferred phone: [phone] Consent: I confirmed patient understanding of the [...] Yung MD Division of Gastroenterology & Hepatology [facility] 08/18/24, 5:01 PM documented in this [id number] History of Present illness Narrative* Katie Yung MD - 07/29/2024 11:34 AM EST This encounter was opened in error. Patient was a No-Show (she was admitted to hospital at time of this appt). Please disregard. documented in this [id number] History of Present illness Narrative* Maxwell Medrano MD - 07/28/2024 11:30 AM EST CARDIOLOGY OFFICE VISIT CHIEF COMPLAINT Chief Complaint Patient presents with Follow-up HISTORY OF PRESENT ILLNESS HPI 83-year-old female with a past medical history of hypertension, hyperlipidemia. Patient had a long history of atrial fibrillation for which she started seeing [facility] since 2020 aftershe was hospitalized in [facility] for bradycardia. Adjustment of her medical therapy [...] therapy. Patient is being evaluated recently at [facility] for ablation therapy for atrial fibrillation. [...] had a dual-chamber pacemaker [facility] MRI implanted in June 29, 2021. [...] breath. She ended in the hospital at [facility]. During this admission she was in atrial flutter. Rates were controlled between 60 to 90 bpm. She underwent cardioversion with successful yarsani to sinus rhythm for at least a [...] evaluation. She in the mid admitted to [facility] in June 23, 2024 for shortness of breath. She underwent cardioversion July 02 with successful yarsani of sinus rhythm. Patient states that after cardioversion she did not notice any difference in her shortness of breath. 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 documented in [facility]UC [facility] Work Phone: 1(706) 969-617512-09-2024 Instructions* Patient Instructions* Raysa Fermin MA - 07/28/2024 11:30 AM EST PLEASE BRING ALL MEDICATION BOTTLES TO OFFICE VISITS. CALL THE OFFICE WITH MEDICATION BOTTLES TO DISCUSS AND UPDATE MEDICATION LIST. CALL [phone] OPTION #4. documented in this encounterUC Medical Center Work Phone: 1(672) 665-714912-02-2024 Telephone encounter Note* Telephone Encounter - Carmelita Simpson RN - 07/21/2024 12:45 PM EST Situation: Call transfer from [facility] with breathing issues. Attempt to help with EMS but difficulties. Call to EMS but told unable to send and unable to conference call. Patient disconnected. Attempt to call but no answer. Call to [facility] EMS managed by [facility] whom is contracted via [facility]. Patient lives in independent living managed by [facility]. [facility] will call to have her checked out. Patient needs to get life alert. Background: See above. Cardiology with . Assessment: Message to Dr. Yung. Abimael Recommendation: [id number] Miscellaneous Notes* Telephone Encounter - Carmelita Simpson, RN - 07/21/2024 12:45 PM EST Situation: Call transfer from [facility] with breathing issues. Attempt to help with EMS but difficulties. Call to EMS but told unable to send and unable to conference call. Patient disconnected. Attempt to call but no answer. Call to [facility] EMS managed by [facility] whom is contracted via [facility]. Patient lives in independent living managed by [facility]. [facility] will call to have her checked out. Patient needs to get life alert. Background: See above. Cardiology with . Assessment: Message to Dr. Yung. Abimael Recommendation: * Telephone Encounter - Maria Eugenia Quach - 07/21/2024 12:39 PM EST Caller transferred to nurse for sx of: Shortness of Breath, Abdominal or Chest Pain, (Patient is not sure which it is). documented in this [id number] Telephone encounter Note* Telephone Encounter - Maria Eugenia Quach - 07/21/2024 12:39 PM EST Caller transferred to nurse for sx of: Shortness of Breath, Abdominal or Chest Pain, (Patient is not sure which it is). [id number] Evaluation note* Diagnosis Onset Date Resolution Status [...] 3:04pm Rectal bleeding acute August 212024 3:04pm [facility] Work Phone: 1(615) 144-643011-13-2024 Progress note Author W Luiz [facility] Note Date/Time July 02, 2024 3:59pm [facility] [address] [place], [place] [address] Cardiology Progress Note Signed Patient: Austin Golden MR#: [id number] : 1940 Acct:[id number] Age/Sex: 83 / F Adm Date: 4 Loc: Room: [address] [place] [address] Type: ADM IN Attending Dr: Shilpa Fenton [...] heart catheterization performed earlier this year at [facility] revealing mild coronary disease and normal left [...] % (Auto) 72.9 Lymph % (Auto) 19.1 [place] % (Auto) 4.8 Eos % (Auto) 1.9 Baso % (Auto) 1.3 Nucleat RBC Rel Count 0.2 Neut # (Auto) 6.7 Lymph # (Auto) 1.7 [place] # (Auto) 0.4 Eos # (Auto) 0.2 [...] risk medication use: Code(s): Z79.899 - Other chcf (current) drug therapy (3) Chronic heart failure [...] <Electronically signed by Javed Dee DO> 07/02/24 1550 [facility] Work Phone: 1(631) 217-691111-13-2024 [place] [address] Cardiology Progress Note Signed Patient: Austin Golden MR#: [id number] : 1940 Acct:[id number] Age/Sex: 83 / F Adm Date: 4 Loc: Room: [address] [place] [address] Type: ADM IN Attending Dr: Shilpa Fenton MD Copies to: ~ Date of Service: 07/02/2024 Subjective Principal diagnosis: Paroxysmal A-fib, shortness of breath, history of HFpEF Interval history: Ms. Golden is a 83 year old female seen in cardiology consultation request the hospitalist in patient who presents with recurrent exertional dyspnea. She declines chest discomfort to sd. Troponins are mildly elevated, initially at 101 and 85, and currently 92 (notably, she has chronic troponin elevation upon review of her EMR). Renal function is normal. 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 (3) Chronic heart failure [...] Dee DO 07/02/241555 Signed By: 07/02/24 1559 [facility]11-13-2024 Progress note Author Shilpa Fenton [facility] Note Date/Time July 02, 2024 1:06pm [facility] [address] [place] [address] Hospitalist Progress Note Signed Patient: Austin Golden MR#: [id number] : 1940 Acct:[id number] Age/Sex: 83 / F Adm Date: 4 Loc: 3T Room: [address] [place] [address] Type: ADM IN Attending Dr: Shilpa Fenton [...] Laboratory work up and Imaging studies reviewed quality assurance monitor chassis - reviewed, remains in atrial fibrillation but [...] signed by Shilpa Fenton MD> 07/02/24 1306 [facility] Work Phone: 1(943) 142-756011-13-2024 [place] [address] Hospitalist Progress Note Signed Patient: Austin Golden MR#: [id number] : 1940 Acct:[id number] Age/Sex: 83 / F Adm Date: 4 Loc: Room: [address] [place] [address] Type: ADM IN Attending Dr: Shilpa Fenton [...] Laboratory work up and Imaging studies reviewed quality assurance monitor chassis - reviewed, remains in atrial fibrillation but [...] MD 07/02/24 1303 Signed By: 07/02/24 1306 [facility]11-13-[address] [address] Cardiology Procedure Note Signed Patient: Austin Golden MR#: [id number] : 1940 Acct:[id number] Age/Sex: 83 / F Adm Date: 4 Loc: 3T Room: [address] [place] [address] Type: ADM IN Attending Dr: Shilpa Fenton MD Copies to: DO Jimena Carias MD, [facility] Shilpa Fenton MD~ Cardiology Procedures DATE/PROVIDER Date: 07/02/2024 Jimena Smith MD CARDIOVERSION ASA Classification: 2 Mallampati Score: Class II Pre-Operative Diagnosis: Atrial Fibrillation Post-Operative Diagnosis: Holiness of sinus rhythm Procedure Description: After obtaining [...] 60 bpm. Documented By: Jimena Smith MD, [facility] 911 Signed By: 07/02/24 0914 [facility]11-12-2024 Progress note Author Shilpa Fenton [facility] Note Date/Time July 01, 2024 3:17pm [facility] [address] [place] [address] Hospitalist Progress Note Signed Patient: Austin Golden MR#: [id number] : 1940 Acct:[id number] Age/Sex: 83 / F Adm Date: 4 Loc: 3T Room: [address] [place] [address] Type: ADM IN Attending Dr: Shilpa Fenton [...] Laboratory work up and Imaging studies reviewed quality assurance monitor chassis - reviewed, remains in atrial fibrillation but [...] <Electronically signed by Shilpa Fenton MD> 07/01/24 8652 [facility] Work Phone: 1(629) 274-863511-12-2024 [place] [id number] Hospitalist Progress Note Signed Patient: Austin Golden MR#: [id number] : 1940 Acct:[id number] Age/Sex: 83 / F Adm Date: 4 Loc: Room: [address] [place] [address] Type: ADM IN Attending Dr: Shilpa Fenton [...] Laboratory work up and Imaging studies reviewed quality assurance monitor chassis - reviewed, remains in atrial fibrillation but [...] Shilpa Fenton MD 07/01/241514 Signed By: 07/01/24 [facility]7 [facility]11-12-2024 Consult note Author Javed Dee [facility] Note Date/Time July 01, 2024 11:50am [facility] [address] [place] [address] Cardiology Consult Note Signed Patient: Austin Golden MR#: [id number] : 1940 Acct:[id number] Age/Sex: 83 / F Adm Date: 4 Loc: Room: [address] [place] [address] Type: ADM IN Attending Dr: Shilpa Fenton MD Copies to: DO Shilap Carias MD W Scott Sheldon, DO~ Cardiology [...] heart catheterization performed earlier this year at [facility] revealing mild coronary disease and normal left [...] amiodarone to 400 daily, and repeat cardioversion [facility] Medical History (Updated 07/01/24 @ 11:49 by [...] List clean-up per request of Phys. EHR [facility] Kidney stones removal of kidney stone R flank in 2021 Problem List clean-up per request of Phys. EHR [facility] Pacemaker Problem List clean-up per request of Phys. EHR [facility] Atrial fibrillation, persistent Problem List clean-up per request of Phys. EHR [facility] COVID-19 2019 Problem List clean-up per request of Phys. EHR [facility] Atrial fibrillation with RVR Problem List clean-up per request of Phys. EHR [facility] Hernia of abdominal wall Problem List clean-up per request of Phys. EHR [facility] Surgical History History of repair of hiatal hernia (~2014) History of left heart catheterization (~03/2024) LHC: LAD 40-50%, diagonal 70%, RCA 40-50%, normal LVEF - 03/2024 History of cholecystectomy 2022 History of colonoscopy 2011 History of cardiac catheterization Problem List clean-up per request of Phys. EHR [facility] H/O eye surgery right eye Problem List clean-up per request of Phys. EHR [facility] History of cataract surgery marybeth eye Problem List clean-up per request of Phys. EHR [facility] History of appendectomy Problem List clean-up per request of Phys. EHR [facility] History of tonsillectomy Problem List clean-up per request of Phys. EHR [facility] H/O foot surgery left Problem List clean-up per request of Phys. EHR [facility] History of hysterectomy Problem List clean-up per request of Phys. 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 (3) Chronic heart failure [...] <Electronically signed by Javed Dee DO> 07/01/24 1155 [facility] Work Phone: 1(396) 433-183511-12-2024 [place] [address] Cardiology Consult Note Signed Patient: Austin Golden MR#: [id number] : 1940 Acct:[id number] Age/Sex: 83 / F Adm Date: 4 Loc: 3T Room: [address] [place] [address] Type: ADM IN Attending Dr: Shilpa Fenton [...] heart catheterization performed earlier this year at [facility] revealing mild coronary disease and normal left [...] amiodarone to 400 daily, and repeat cardioversion [facility] Medical History (Updated 07/01/24 @ 11:49 by [...] List clean-up per request of Phys. EHR [facility] Surgical History History of repair of hiatal hernia (~2014) History of left heart catheterization (~03/2024) LHC: LAD 40-50%, diagonal 70%, RCA 40-50%, normal LVEF - 03/2024 History of cholecystectomy 2022 History of colonoscopy 2011 History of cardiac catheterization Problem List clean-up per request of Phys. EHR [facility] H/O eye surgery right eye Problem List clean-up per request of Phys. EHR Cmte History of cataract surgery marybeth eye Problem List clean-up per request of Phys. EHR [facility] History of appendectomy Problem List clean-up per request of Phys. EHR [facility] History of tonsillectomy Problem List clean-up per request of Phys. EHR Cmte H/O foot surgery left Problem List clean-up per request of Phys. EHR Cmte History of hysterectomy Problem List clean-up per request of Phys. EHR [facility] Family History Father Heart & renal disease, hypertensive, with heart fail/chron kidney dis Depression Sister Heart disease Mother Brain tumor Father Mother Social History Smoking Status: Never smoker Substance Use Type: None Substance Abuse Comment: etoh occasional Social History Comments: independent living at the [facility] Medications and Allergies Allergies No Known [...] mg PO DAILY #30 caps 04/01/24 [Rx Qtjojycvk10/11/24] multivitamin 1 tab PO DAILY 04/01/24 [History [...] Lymph # (Auto) 1.4 1.4 (1.00-4.8) x10E3/uL [place] # (Auto) 0.6 0.5 (0.0-0.8) x10E3/uL Eos [...] risk medication use: Code(s): Z79.899 - 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 (3) Chronic heart failure [...] DO 07/01/24 1138 Signed By: 07/01/24 1150 [facility]11-11-2024 History and physical note Author Shilpa Fenton [facility] Note Date/Time June 30, 2024 7:23pm [facility] [address] [place] [address] Hospitalist H&P Signed Patient: Austin Golden MR#: [id number] : 1940 Acct:[id number] Age/Sex: 83 / F Adm Date: 4 Loc: 3T Room: [address] [place] [address] Type: ADM IN Attending Dr: Shilpa Fenton [...] Previous records in the computer system reviewed [facility] Medical History Anxiety High risk medication use [...] List clean-up per request of Phys. EHR [facility] Surgical History History of repair of [...] Social History Comments: independent living at the [facility] Medications and Allergies Allergies No Known [...] % (Auto) 14.0 % (.) 06/30/24 15:04 [place] % (Auto) 5.9 % (.) 06/30/24 15:04 Eos % (Auto) 1.5 % (.) 06/30/24 15:04 Baso % (Auto) 0.8 % (.) 06/30/24 15:04 Nucleat RBC Rel Count 0.1 /100 WBC (0-0.5) 06/30/24 15:04 Neut # (Auto) 8.1 x10E3/uL (1.8-7.7) H 06/30/24 15:04 Lymph # (Auto) 1.4 x10E3/uL (1.00-4.8) 06/30/24 15:04 [place] # (Auto) 0.6 x10E3/uL (0.0-0.8) 06/30/24 15:04 [...] <Electronically signed by Shilpa Fenton MD> 06/30/241922 [facility] Work Phone: 1(687) 726-280211-11-2024 Evaluation note* Diagnosis Onset Date Resolution Status [...] wall contusion acute Gonzalez abdoul 2024 2:04pm [facility] Work Phone: 1(728) 923-885911-11-2024 Evaluation note* Diagnosis Onset Date Resolution Status [...] 3:04pm Rectal bleeding acute August 212024 3:04pm [facility] Work Phone: 1(505) 773-460111-11-2024 History and physical [address] [address] Hospitalist H&P Signed Patient: Austin Golden MR#: [id number] : 1940 Acct:[id number] Age/Sex: 83 / F Adm Date: 4 Loc: Room: [address] [place] [address] Type: ADM IN Attending Dr: Shilpa Fenton [...] Previous records in the computer system reviewed [facility] Medical History Anxiety High risk medication use [...] List clean-up per request of Phys. EHR [facility] Fibromyalgia Problem List clean-up per request of Phys. EHR [facility] Arthritis back and neck Problem List clean-up per request of Phys. EHR Cmte Hypertension Problem List clean-up per request of Phys. EHR [facility] History of cardiac pacemaker in situ Presbyesophagus Hiatal hernia Restless leg Hyperlipemia Problem List clean-up per request of Phys. EHR Cmte CHF (congestive heart failure) Problem List clean-up per request of Phys. EHR [facility] Kidney stones removal of kidney stone R flank in 2021 Problem List clean-up per request of Phys. EHR [facility] Pacemaker Problem List clean-up per request of Phys. EHR Cmte Atrial fibrillation, persistent Problem List clean-up per request of Phys. EHR [facility] COVID-19 2019 Problem List clean-up per request of Phys. EHR [facility] Atrial fibrillation with RVR Problem List clean-up per request of Phys. EHR [facility] Hernia of abdominal wall Problem List clean-up per request of Phys. EHR [facility] Surgical History History of repair of [...] Social History Comments: independent living at the [facility] Medications and Allergies Allergies No Known [...] mg PO DAILY #30 caps 04/01/24 [Rx Gzfuugmds13/11/24] multivitamin 1 tab PO DAILY 04/01/24 [History [...] % (Auto) 14.0 % (.) 06/30/24 15:04 [place] % (Auto) 5.9 % (.) 06/30/24 15:04 Eos % (Auto) 1.5 % (.) 06/30/24 15:04 Baso % (Auto) 0.8 % (.) 06/30/24 15:04 Nucleat RBC Rel Count 0.1 /100 WBC (0-0.5) 06/30/24 15:04 Neut # (Auto) 8.1 x10E3/uL (1.8-7.7) H 06/30/24 15:04 Lymph # (Auto) 1.4 x10E3/uL (1.00-4.8) 06/30/24 15:04 [place] # (Auto) 0.6 x10E3/uL (0.0-0.8) 06/30/24 15:04 [...] Fenton MD 06/30/24 1833 Signed By: 06/30/241922 [facility]11-11-2024 Radiology Diagnostic study note [facility] [place] [address] [place] [address] Scan Report Signed Patient: Austin Golden MR#: [id number] : 1940 Acct:[id number] Age/Sex: 83 / F ADM Date: 4 Loc: ER Room: Type: [facility] ER Attending Dr: Copies to: Vic [...] Juanito Borja M.D.06/30/2024 3:47 PM Dictation Location: [place] [address] Transcribed By: [facility] 06/30/24 1547 Dictated By: Juanito Borja DO 06/30/24 1542 Signed By: 06/30/24 1547 [facility]11-04-2024 NoteCalled radiology ext [phone]. Requested soemone in the department to reach out to the patient to discuss what is expected prior to and in the procedure for timed barium esophogram. Staffing took the number and agreed to abhinav the patient.[employer] [id number] Telephone encounter Note* Telephone Encounter - Isabel Menard RN - 06/23/2024 11:23 AM EST Called radiology ext [phone]. Requested soemone in the department to reach out to the patient to discuss what is expected prior to and in the procedure for timed barium esophogram. Staffing took the number and agreed to abhinav the patient. [id number] Miscellaneous Notes* Telephone Encounter - Isabel Menard RN - 06/23/2024 11:23 AM EST Called radiology ext [phone]. Requested soemone in the department to reach [...] placed for timed barium esophagogram Jazmin العلي [address] [place] [phone] option #[address] العلي's nurse [...] be scheduled. Thank you documented in this [id number] NotePt has questions about her upcoming procedure 06/26/2024 Would like to discuss with provider Telephone Information: [facility] [id number] Telephone encounter Note* Telephone Encounter - Cristiana Vieira - 06/23/2024 10:19 AM EST Pt has questions about her upcoming procedure 06/26/2024 Would like to discuss with provider Telephone Information: [id number] Telephone encounter Note* Telephone Encounter - Cristiana Vieira - 06/13/2024 4:[address] العلي office calling waiting for order to be placed for timed barium esophagogram Jazmin العلي [address] [place] [address] option #[address] العلي's nurse line Leela Encounter dated 05/29/[address] Yung Recommendations: Obtain timed barium esophagram or endoflip to confirm diagnosis. Dr Yung recommended pt has this procedure Telephone Information: [id number] NoteDbola العلي's office call regarding results from patient's procedure on 05/29/24.. Dr. العلي states recommendations as follows: Obtain timed barium esophagram or endoflip to confirm diagnosis, would like order to be placed so that patient may have this done. Please call patient once order is placed to be scheduled. [facility] [id number] Telephone encounter Note* Telephone Encounter - Evelyn [...] is placed to be scheduled. Thank you [id number] Evaluation note* Diagnosis Onset Date Resolution Status [...] 2024 11:23am Esophageal obstruction inactive 2023 11:23am [facility] Work Phone: 1(553) 362-493710-22-2024 Evaluation note* Diagnosis Onset Date Resolution Status [...] wall contusion acute Gonzalez abdoul 2024 2:04pm [facility] Work Phone: 1(802) 207-973010-22-2024 Evaluation note* Diagnosis Onset Date Resolution Status [...] acute Stage 3a chronic kidney disease acute [facility] Work Phone: 1(922) 523-835410-17-2024 History of Present illness Narrative* Maxwell Medrano MD - 06/05/2024 12:00 PM EDT CARDIOLOGY OFFICE VISIT CHIEF COMPLAINT Chief Complaint Patient presents with Follow-up HISTORY OF PRESENT ILLNESS HPI 83-year-old female with a past medical history of hypertension, hyperlipidemia. Patient had a long history of atrial fibrillation for which she started seeing [facility] since 2020 aftershe was hospitalized in [facility] for brady[facility]. Adjustment of her medical therapy [...] therapy. Patient is being evaluated recently at [facility] for ablation therapy for atrial fibrillation. [...] breath. She ended in the hospital at [facility]. During this admission she was in atrial flutter. Rates were controlled between 60 to 90 bpm. She underwent cardioversion with successful yarsani to sinus rhythm for at least a [...] GI service with upper GI scope at [facility] whofound his scope difficult to pass the [...] of Martín Medrano MD. documented in this [facility] Work Phone: 1([phone]) 444-147310-17-2024 Instructions* Patient Instructions* Nesha Wilson LPN - 06/05/2024 12:[address] Medrano wants pt to see Katie Yung MD [facility] for Gastrointestinal for weakness, vomiting and unable to eat. [employer] to help schedule. If you continue not to feel good going into the weekend and you are short of breath and not feelingwell go to [facility]. Dr. Medrano is supervisor chlorine liquefaction this weekend. He said if you do go to [facility] to call [phone] and speak with our on-call team and tell them to notify Dr. Medrano you are going to hospital so he can see you. DID YOU KNOW We have a pharmacy here in the [facility]. They can fill all prescriptions, not just cardiac medications. Prescriptions from other pharmacies can easily be transferred to the pharmacy by the pharmacist on site. pharmacies offer FREE HOME DELIVERY on medications to anywherein [place]. They can sync your medications. Typically prescriptions can be ready in 10 - 15 minutes. If pharmacy is unable to fill your prescription or if cost is more than your paying now the Pharmacist can easily transfer back to your Pharmacy of choice. Pharmacy phone # [phone]. Please bring all medicines, vitamins, and herbal supplements with you in original bottles to every appointment!!!! Prescriptions will not be filled unless you are compliant with your follow up appointments or have a follow up appointment scheduled as per instruction of your physician. Refills should be requested at the time of your visit. documented in [facility]UC [facility] Work Phone: 1(533) 477-358210-10-2024 Hospital Discharge instructions* Discharge Instructions* Kaylah Ledesma [...] PCP. 3. F/u with Amna Powell at [facility] * Attachments The following attachments cannot be sent through Care Everywhere. * Upper GI Endoscopy Discharge Instructions (Danish) * Esophageal Manometry (Danish) * Moderate Sedation in Adults Discharge Instructions (Danish) * FALLSPREVENTION documented in this [id number] Surgery Surgical operation note* OP Note - [...] undergo sedation with the assistance of anesthesia physician/PRODUCT DEVELOPMENT WORKER team. Please see corresponding note for full details. Katie Yung MD 05/29/24 1:08 PM Austin Golden 83 year old Surgical Contact Serial Number: [id number] Location: [facility] 02 Date: 05/29/2024 SUPERVISOR [employer]: Katie Yung MD ATTENDING:Katie Yung MD Procedure(s): [...] 50cm. Taped to right cheek. Esophageal dysphagia [[id number]] TEE PATH SPECIMEN SENT: no SPECIMEN: None [...] PCP. 3. F/u with Amna Powell at [facility] CC: Primary Care Provider: No primary care provider on file. PERSON COMPLETING NOTE: Katie Yung MD 05/29/2024 at 1:08 PM Patient meets criteria for discharge/transfer: Katie Yung MD [id number] Miscellaneous Notes* OP Note - Katie Yung [...] undergo sedation with the assistance of anesthesia physician/PRODUCT DEVELOPMENT WORKER team. Please see corresponding note for full details. Katie Yung MD 05/29/24 1:08 PM Austin Golden 83 year old Surgical Contact Serial Number: [id number] Location: ENDO 02 Date: 05/29/2024 SUPERVISOR [employer]: Katie Yung MD ATTENDING:Katie Yung MD Procedure(s): [...] 50cm. Taped to right cheek. Esophageal dysphagia [[id number]] TEE PATH SPECIMEN SENT: no SPECIMEN: None [...] PCP. 3. F/u with Amna Powell at [facility] CC: Primary Care Provider: No primary care provider on file. PERSON COMPLETING NOTE: Katie Yung MD 05/29/2024 at 1:08 PM Patient meets criteria for discharge/transfer: Katie Yung MD documented in this [id number] Evaluation note* Diagnosis Onset Date Resolution Status [...] Cirrhosis acute GERD (gastroesophageal reflux disease) acute [facility] Work Phone: 1(755) 165-218509-26-2024 NoteGI Motility Lab Note Pre-procedure: Patient verified [...] and Signs of infection such as feverThe University of [facility] [id number] Evaluation note* Diagnosis Onset Date Resolution Status [...] GERD (gastroesophageal reflux disease) acute Vomiting acute [facility] Work Phone: 1(461) 558-370009-09-2024 History of Present illness Narrative* Maxwell Medrano MD - 04/28/2024 11:30 AM EDT CARDIOLOGY OFFICE VISIT CHIEF COMPLAINT Chief Complaint Patient presents with Follow-up 2 WEEK HISTORY OF PRESENT ILLNESS HPI 83-year-old female with a past medical history of hypertension, hyperlipidemia. Patient had a long history of atrial fibrillation for which she started seeing [facility] since 2020 aftershe was hospitalized in [facility] for bradycardia. Adjustment of her medical therapy [...] therapy. Patient is being evaluated recently at [facility] for ablation therapy for atrial fibrillation. [...] breath. She ended in the hospital at [facility]. During this admission she was in atrial flutter. Rates were controlled between 60 to 90 bpm. She underwent cardioversion with successful yarsani to sinus rhythm for at least a [...] today during this evaluation dual-chamber pacemaker [employer] with battery longevity 6.3 years. [place] of atrial fibrillation 58% of the time [...] of Martín Medrano MD. documented in this encounterUC [facility] Center Work Phone: 1([phone]) 353-842009-09-2024 Instructions* Patient Instructions* Nesha [place] LPN - 04/28/2024 11:30 AM EDT Increase Amiodarone to 200 mg twice daily x 1 week,then decrease to 1 tablet daily thereafter. DID YOU KNOW We have a pharmacy here in the [facility]. They can fill all prescriptions, not just cardiac medications. Prescriptions from other pharmacies can easily be transferred to the pharmacy by the pharmacist on site. pharmacies offer FREE HOME DELIVERY on medications to anywherein [place]. They can sync your medications. Typically prescriptions can be ready in 10 - 15 minutes. If pharmacy is unable to fill your prescription or if cost is more than your paying now the Pharmacist can easily transfer back to your Pharmacy of choice. Pharmacy phone # [phone]. Please bring all medicines, vitamins, and herbal supplements with you in original bottles to every appointment!!!! Prescriptions will not be filled unless you are compliant with your follow up appointments or have a follow up appointment scheduled as per instruction of your physician. Refills should be requested at the time of your visit. documented in this [facility] Work Phone: 1(993) 955-144809-05-2024 History of Present illness Narrative* Debbie Mac [...] exam, discussion and plan. documented in this [facility] Work Phone: 1([phone]) 105-767909-05-2024 Instructions* Patient Instructions* Maggy Vee LPN - [...] take amio 2 weeks documented in this [facility] Work Phone: [phone]) 206-822908-30-2024 Evaluation note* Diagnosis Onset Date Resolution Status [...] disease acut e July 09, 2024 2:54pm [facility] Work Phone: 1(240) [phone] Evaluation note* Diagnosis Onset Date Resolution Status [...] GERD (gastroesophageal reflux disease) acute Vomiting acute [facility] Work Phone: 1(722) 259-987308-29-2024 History of Present illness Narrative* Maxwell Medrano MD - 04/17/2024 10:15 AM EDT CARDIOLOGY OFFICE VISIT CHIEF COMPLAINT Chief Complaint Patient presents with Hospital Follow-up CARDIOVERSION 03/25/24 HISTORY OF PRESENT ILLNESS HPI 83-year-old female with a past medical history of hypertension, hyperlipidemia. Patient had a long history of atrial fibrillation for which she started seeing [facility] since 2020 aftershe was hospitalized in [facility] for bradycardia. Adjustment of her medical therapy [...] therapy. Patient is being evaluated recently at [facility] for ablation therapy for atrial fibrillation. [...] atrial fibrillation for which she started seeing [facility] since 2020 aftershe was hospitalized in [facility] for bradycardia. Adjustment of her medical therapy [...] therapy. Patient is being evaluated recently at [facility] for ablation therapy for atrial fibrillation. [...] breath. She ended in the hospital at [facility]. During this admission she was in atrial flutter. Rates were controlled between 60 to 90 bpm. She underwent cardioversion with successful yarsani to sinus rhythm for at least a [...] maintaining sinus rhythm during recent admission at [facility] for almost a day and a half [...] to prepare this document. documented in this [facility] Work Phone: 1([phone]) [phone] Instructions* Patient Instructions* Raysa Fermin MA - 04/17/2024 10:15 AM EDT TAKE SOTALOL UINTIL SUNDAY. NO SOTALOL ON SUNDAY AND SUNDAY START AMIODARONE 200 MG ON SUNDAY- TAKE 1 TABLET TWICE DAILY FOR ONE WEEK. THEN TAKE 1 TABLET THEREAFTER. HAVE LABS DONE BEFORE NEXT OFFICE VISIT (NON FASTING) [facility] Work Phone: [phone] 327-500908-20-2024 Evaluation note* Diagnosis Onset Date Resolution Status [...] Elevated troponin acute Novembe r 2023 5:45pm [facility] Work Phone: 1([phone] 323-583608-20-2024 Evaluation note* Diagnosis Onset Date Resolution Status [...] atrial fibrillation acute June 30, 2024 5:45pm [facility] Work Phone: 1([phone] 515-198607-11-2024 History of Present illness Narrative* Maxwell Medrano MD - 02/28/2024 11:15 AM EDT CARDIOLOGY OFFICE VISIT CHIEF COMPLAINT Chief Complaint Patient presents with Follow-up HISTORY OF PRESENT ILLNESS HPI 83-year-old female with a past medical history of hypertension, hyperlipidemia. Patient had a long history of atrial fibrillation for which she started seeing [facility] since 2020 aftershe was hospitalized in [facility] for bradycardia. Adjustment of her medical therapy [...] therapy. Patient is being evaluated recently at [facility] for ablation therapy for atrial fibrillation. [...] be delivered with unsuccessful termination of thisarrhythmia. [place] of atrial fibrillation approximately 76% of the [...] furosemide (LASIX) 20 mg, oral, Daily HYDROcodone-acetaminophen ([place]) 10-325 mg tablet 1 tablet, oral, Daily [...] of Martín Medrano MD. documented in this [facility] Work Phone: 1(781) [phone] Instructions* Patient Instructions* Nesha Wilson LPN - [...] time of your visit. documented in this [facility] Work Phone: [phone]) [phone] History of Present illness Narrative* Debbie Mac [...] mouth once daily., Disp: , Rfl: HYDROcodone-acetaminophen ([place]) 10-325 mg tablet, Take 1 tablet by [...] exam, discussion and plan. [facility] Work Phone: 1([phone]) 562-830207-08-2024 Instructions* Patient Instructions* Anju Woods LPN - [...] through Care Everywhere. * Heart Healthy Diet (Danish) [facility] Work Phone: [phone] History of Present illness Narrative* Millie Sneed [...] m (4' 11 ) documented in this [facility] Work Phone: 1([phone]) [phone] Progress note Author Christopher Richardson [facility] January 20, 2024 1:46pm Note Date/Time January 20, 2024 1:46p m [facility] [address] [place] [address] Cardiology Progress Note Signed Patient: Austin Golden MR#: [id number] : 1940 Acct:[id number] Age/Sex: 83 / F Adm Date: 4 Loc: Room: [address] [place] [address] Type: ADM IN Attending Dr: Izzy Capps [...] signed by MD Christopher Richardson> 01/20/24 1346 [facility] Work Phone: [phone] 610-237606-01-2024 Progress note Author Izzy Capps [facility] January 19, 2024 6:48pm Note Date/Time January 19, 2024 5:02p m [facility] [address] [place] [address] Hospitalist Progress Note Signed Patient: Austin Golden MR#: [id number] : 1940 Acct:[id number] Age/Sex: 83 / F Adm Date: 4 Loc: Room: [address] [place] [address] Type: ADM IN Attending Dr: Izzy Capps [...] 1,000 Ml IV 01/17/25 15:29 75 mls/hr .[id number] KWAN Administration Diltiazem HCl 100 mg in [...] <Electronically signed by Izzy Capps MD> 01/19/24 6408 [facility] Work Phone: 1([phone] 489-100406-01-2024 Consult note Author Christopher Richardson [facility] January 19, 2024 12:11pm Note Date/Time January 19, 2024 12:08 pm [facility] [address] [place] [address] Cardiology Consult Note Signed Patient: Austin Golden MR#: [id number] : 1940 Acct:[id number] Age/Sex: 83 / F Adm Date: 4 Loc: Room: [address] [place] [address] Type: ADM IN Attending Dr: Izzy Capps [...] List clean-up per request of Phys. EHR [facility] History of cardiac pacemaker in [...] List clean-up per request of Phys. EHR [facility] Surgical History History of cholecystectomy [...] List clean-up per request of Phys. EHR [facility] Family History Father Heart & renal disease, hypertensive, with heart fail/chron kidney dis Depression Sister Heart disease Mother Brain tumor Father Mother Social History Smoking Status: Never smoker Substance Use Type: None Substance Abuse Comment: etoh occasional Social History Comments: independent living at the [facility] in [facility] Medications and Allergies Allergies Sulfa [...] A 2,500 unit-vit C 100 mg-biotin 2,500 kzu-cjom-zkwzfx capsule (Kmlg-Jtcw-Rtpj (vit A,G-yspfuc-No-Cu)) 1 cap PO DAILY 01/18/24 [History Confirmed [...] x10E3/uL Lymph # (Auto) 1.0 (1.00-4.8) x10E3/uL [place] # (Auto) 0.8 (0.0-0.8) x10E3/uL Eos # [...] 1000 ,000 ml @ 75 mls/hr IV .[id number] KWAN Rx#:[id number] dilTIAZem 100 MG -*NaCl* 100 mg 100 / 100 In 100 ml @ 5 MG/HR 5 mls/hr IV .Q20H KWAN Rx#:[id number] Oral 200 / 200 Other: # Voids [...] by MD Christopher Richardson> 01/19/24 1211 [facility] Work Phone: [phone] History and physical note Author Izzy Capps [facility] January 19, 2024 1:25am Note Date/Time January 18, 2024 8:45p m [facility] [address] [place] [address] Hospitalist H&P Signed Patient: Austin Golden MR#: [id number] : 1940 Acct:[id number] Age/Sex: 83 / F Adm Date: 4 Loc: Room: [address] [place] [address] Type: ADM IN Attending Dr: Izzy Capps MD Copies to: DO Izzy Carais MD~ HPI DATE OF EXAMINATION: 01/18/24 HISTORY [...] care Discussed with:?the medical team, the patient [facility] Medical History Chronic heart failure with preserved [...] Social History Comments: independent living at the [facility] Medications and Allergies Allergies Sulfa (Sulfonamide [...] A 2,500 unit-vit C 100 mg-biotin 2,500 gby-jdxl-xadqdh capsule (Dsjh-Qson-Joht (vit A,I-kpcrgl-Df-Cu)) 1 cap PO DAILY 01/18/24 [History Confirmed [...] % (Auto) 9.2 % (.) 01/18/24 15:40 [place] % (Auto) 7.6 % (.) 01/18/24 15:40 Eos % (Auto) 1.2 % (.) 01/18/24 15:40 Baso % (Auto) 0.5 % (.) 01/18/24 15:40 Nucleat RBC Rel Count 0.1 /100 WBC (0-0.5) 01/18/24 15:40 Neut # (Auto) 8.5 x10E3/uL (1.8-7.7) H 01/18/24 15:40 Lymph # (Auto) 1.0 x10E3/uL (1.00-4.8) 01/18/24 15:40 [place] # (Auto) 0.8 x10E3/uL (0.0-0.8) 01/18/24 15:40 [...] signed by Izzy Capps MD> 01/19/24 012 [facility] Work Phone: [phone] History of Present illness Narrative* Debbie Mac [...] mouth once daily., Disp: , Rfl: HYDROcodone-acetaminophen ([place]) 10-325 mg tablet, Take 1 tablet by [...] vessel coronary artery disease [facility] Work Phone: [phone] Instructions* Patient Instructions* Maggy Vee LPN - [...] Maalox also. Pacemaker check [facility] Work Phone: [phone] 347-474010-12-2023 History of Present illness Narrative* Debbie Mac [...] mouth once daily., Disp: , Rfl: HYDROcodone-acetaminophen ([place]) 10-325 mg tablet, Take 1 tablet by [...] 11. Dyspnea, unspecified type [facility] Work Phone: [phone] Instructions* Patient Instructions* Maggy Vee LPN - [...] time of your visit. [facility] Work Phone: [phone] Evaluation note* Encounter Date Diagnosis Assessment Notes [...] are maintaining regular scheduled appts with their diesel engine tester. No bleeding complications Mar, Chronic heart failure [...] (ICD-10 - R06.02) Multifactorial but mostly deconditioning. [facility] w/o obstructive coronary disease Psat 98% [...] High risk medication use (ICD-10 - Z79.899) [employer] Other 04-10-2023 Consult note Author Debbie Mac [facility] November 27, 2022 11:58am Note Date/Time November 27, 2022 11: 48am [facility] [address] [place] [address] Cardiology Consult Note Signed Patient: Austin Golden MR#: [id number] : 1940 Acct:[id number] Age/Sex: 82 / F Adm Date: 3 Loc: [place] Room: Type: [facility] Attending Dr: Wilbur Watson DO Copies to: [...] function and a previous stress test in [place] that showed no evidence of myocardial ischemia. [...] Social History Comments: independent living at the [facility] Medications and Allergies Allergies fentanyl Allergy [...] <Electronically signed by MD Debbie Mac> 11/27/22 5138 [facility] Work Phone: [phone] Progress note Author Emmanuel Holland [facility] November 27, 2022 11:10am Note Date/Time November 27, 2022 11: 10am [facility] [address] [place] [address] Anesthesia Progress Note Signed Patient: Austin Golden MR#: [id number] : 1940 Acct:[id number] Age/Sex: 82 / F Adm Date: 3 Loc: [place] Room: Type: [facility] Attending Dr: Wilbur Watson DO Copies to: [...] by Emmanuel Holland Jr, MD> 11/27/22 1110 [facility] Work Phone: [phone] Evaluation note* Encounter Date Diagnosis Assessment Notes Treatment Notes Treatment Clinical Notes Oct, Pulmonary nodule (ICD-10 - R91.1) CT chest: no nodules - 10/2022 [employer] Other 03-07-2023 Evaluation note* Encounter Date Diagnosis [...] verbalized understanding and agreement of tx plan. [employer] Other 02-02-2023 Discharge summary Author Katie Dukes [facility] September 21, 2022 3:33pm Note Date/Time September 21, 2022 3 :17pm [facility] [address] [place] [address] Discharge Summary Signed Patient: Austin Golden MR#: [id number] : 1940 Acct:[id number] Age/Sex: 82 / F Adm Date: 3 Loc: Room: [address] [place] [address]: Katie Dukes DO Copies to: [...] and collapse. The patient was outside of hindu when she suddenly lost consciousness. Work-up in [...] % (Auto) 68.2, Lymph % (Auto) 18.9, [place] % (Auto) 7.6, Eos % (Auto) 4.6, Baso % (Auto) 0.7, Nucleat RBC Rel Count 0.0, Neut # (Auto) 3.9, Lymph # (Auto) 1.1, [place] # (Auto) 0.4, Eos # (Auto) 0.3, [...] You are scheduled for an EKG at /[facility] on 09/27/2022 at 1:00pm Instructions: [...] <Electronically signed by Katie Dukes DO> 09/21/22 [facility] Work Phone: 1(930) 602-463102-02-2023 Progress note Author Debbie Mac [facility] September 21, 2022 9:48am Note Date/Time September 21, 2022 9 :45am [facility] [address] [place] [address] Cardiology Progress Note Signed Patient: Austin Golden MR#: [id number] : 1940 Acct:[id number] Age/Sex: 82 / F Adm Date: 3 Loc: Room: [address] [place] [address] Type: ADM IN Attending Dr: Katie Dukes [...] % (Auto) 68.2 Lymph % (Auto) 18.9 [place] % (Auto) 7.6 Eos % (Auto) 4.6 Baso % (Auto) 0.7 Nucleat RBC Rel Count 0.0 Neut # (Auto) 3.9 Lymph # (Auto) 1.1 [place] # (Auto) 0.4 Eos # (Auto) 0.3 [...] signed by MD Debbie Mac> 09/21/22 0948 [facility] Work Phone: 1(563) 707-528602-01-2023 Progress note Author Katie Dukes [facility] September 20, 2022 3:21pm Note Date/Time September 20, 2022 3 :21pm [facility] [address] [place] [address] Hospitalist Progress Note Signed Patient: Austin Golden MR#: [id number] : 1940 Acct:[id number] Age/Sex: 82 / F Adm Date: 3 Loc: Room: [address] [place] [address] Type: ADM IN Attending Dr: Katie Dukes [...] signed by Katie Dukes DO> 09/20/22 1521 [facility] Work Phone: [phone] History of Present illness Narrative* Austin Golden is an 82 y/o female referred by Dr Mac for evaluation of AF. * PMH includes HTN, HLD, HF, SSS s/p PPG implant, CKD, obesity and AF. * Treatment of her AF includes Amiodarone (d/c d for concerns of chcf side effects), tikosyn (prolonged OTc), sotalol and DCCV (09/2022). * Symptoms of her AF include fatigue and BRAY. * Pt follows with Dr Stover for management of her AF. Pt has previously been on Amio but was concerned about chcf side effects. She was then put on [...] CONDUCTION @ 109 bpm * Echo 08/2022 ([facility]): LVEF 40%, moderate anteroseptal hypokinesis with wall motion suggestive of conduction abnormality, LA mildly dilated, trace MR & TR * Echo 06/2021: EF 45%, severe anteroseptal hypokinesis, mild-mod DD, LA mildly dilated, mild-mod MR,mild TR, mild-mod pHTN [facility] Work Phone: [phone] 370-806602-01-2023 History of Present illness Narrative* Austin Golden is an 82 y/o female referred by Dr Mac for evaluation of AF. * PMH includes HTN, HLD, HF, SSS s/p PPG implant, CKD, obesity and AF. 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 * Symptoms of her AF include fatigue and BRAY. * Pt follows with Dr Stover for management of her AF. Pt has previously been on Amio but was concerned about chcf side effects. She was then put on [...] CONDUCTION @ 109 bpm * Echo 08/2022 ([facility]): LVEF 40%, moderate anteroseptal hypokinesis with wall motion suggestive of conduction abnormality, LA mildly dilated, trace MR & TR * Echo 06/2021: EF 45%, severe anteroseptal hypokinesis, mild-mod DD, LA mildly dilated, mild-mod MR,mild TR, mild-mod pHTN [facility] [address] [place] Work Phone: 1([phone] 916-837702-01-2023 Progress note Author Debbie Mac [facility] September 20, 2022 9:04am Note Date/Time September 20, 2022 9 :03am [facility] [address] [place], [place] [address] Cardiology Progress Note Signed Patient: Austin Golden MR#: [id number] : 1940 Acct:[id number] Age/Sex: 82 / F Adm Date: 3 Loc: Room: [address] [place] [address] Type: ADM IN Attending Dr: Katie Dukes [...] % (Auto) 65.4 Lymph % (Auto) 22.6 [place] % (Auto) 6.8 Eos % (Auto) 4.5 Baso % (Auto) 0.7 Nucleat RBC Rel Count 0.2 Neut # (Auto) 3.6 Lymph # (Auto) 1.2 [place] # (Auto) 0.4 Eos # (Auto) 0.2 [...] signed by MD Debbie Mac> 09/20/22 0904 [facility] Work Phone: [phone] [facility] Progress note Author Katie Dukes [facility] September 19, 2022 6:52pm Note Date/Time September 19, 2022 6 :52pm [facility] [address] [place] [address] Hospitalist Progress Note Signed Patient: Austin Golden MR#: [id number] : 1940 Acct:[id number] Age/Sex: 82 / F Adm Date: 3 Loc: Room: [address] [place] [address] Type: ADM IN Attending Dr: Katie Dukes [...] <Electronically signed by Katie Dukes DO> 09/19/22 0704 [facility] Work Phone: 1([phone]) 616-907501-31-2023 Progress note Author Debbie Mac [facility] September 19, 2022 9:57am Note Date/Time September 19, 2022 9 :57am [facility] [address] [place], [place] [address] Cardiology Progress Note Signed Patient: Austin Golden MR#: [id number] : 1940 Acct:[id number] Age/Sex: 82 / F Adm Date: 3 Loc: Room: [address] [place] [address] Type: ADM IN Attending Dr: Katie Dukes [...] % (Auto) 68.4 Lymph % (Auto) 20.4 [place] % (Auto) 6.6 Eos % (Auto) 4.0 Baso % (Auto) 0.6 Nucleat RBC Rel Count 0.1 Neut # (Auto) 4.2 Lymph # (Auto) 1.2 [place] # (Auto) 0.4 Eos # (Auto) 0.2 [...] signed by MD Debbie Mac> 09/19/22 0957 [facility] Work Phone: 1(286) 325-371701-30-2023 Progress note Author Katie Dukes [facility] September 18, 2022 6:04pm Note Date/Time September 18, 2022 6 :04pm [facility] [address] [place] [address] Hospitalist Progress Note Signed Patient: Austin Golden MR#: [id number] : 1940 Acct:[id number] Age/Sex: 82 / F Adm Date: 3 Loc: 4 Room: [address] [place] [address] Type: ADM IN Attending Dr: Katie Dukes [...] <Electronically signed by Katie Dukes DO> 09/18/22 2278 [facility] Work Phone: [phone] Consult note Author Debbie Mac [facility] September 18, 2022 3:50pm Note Date/Time September 18, 2022 3 :39pm [facility] [address] [place] [address] Cardiology Consult Note Signed Patient: Austin Golden MR#: [id number] : 1940 Acct:[id number] Age/Sex: 82 / F Adm Date: 3 Loc: Room: [address] [place] [address] Type: ADM IN Attending Dr: Katie Dukes [...] test was 2 years ago back in [place] and was negative Review of Systems Review [...] Social History Comments: independent living at the [facility] in [facility] Medications and Allergies Allergies fentanyl [...] <Electronically signed by MD Debbie Mac> 09/18/22 6633 [facility] Work Phone: [phone] History and physical note Author Jay Ceja [facility] September 17, 2022 5:45pm Note Date/Time September 17, 2022 5 :45pm [facility] [address] [place] [address] Hospitalist H&P Signed Patient: Austin Golden MR#: [id number] : 1940 Acct:[id number] Age/Sex: 82 / F Adm Date: 3 Loc: Room: [address] [place] [address] Type: ADM IN Attending Dr: Jay Ceja [...] rate at home. Today she was at hindu and she was standing upwaiting for her [...] Social History Comments: independent living at the [facility] Medications and Allergies Allergies fentanyl Allergy [...] % (Auto) 15.2 % (.) 09/17/22 13:19 [place] % (Auto) 7.1 % (.) 09/17/22 13:19 Eos % (Auto) 3.5 % (.) 09/17/22 13:19 Baso % (Auto) 0.6 % (.) 09/17/22 13:19 Nucleat RBC Rel Count 0.3 /100 WBC (0-0.5) 09/17/22 13:19 Neut # (Auto) 5.9 x10E3/uL (1.8-7.7) 09/17/22 13:19 Lymph # (Auto) 1.2 x10E3/uL (1.00-4.8) 09/17/22 13:19 [place] # (Auto) 0.6 x10E3/uL (0.0-0.8) 09/17/22 13:19 [...] pH 5.5 (5.0-9.0) 09/17/22 13:19 Ur Specific [place] 1.024 (1.001-1.030) 09/17/22 13:19 Urine Protein Trace [...] signed by Jay Ceja DO> 09/17/22 1745 [facility] Work Phone: 1([phone] Evaluation note* Encounter Date Diagnosis Assessment Notes Treatment Notes Treatment Clinical Notes Aug, Persistent atrial fibrillation (ICD-10 - I48.19) This patient is in NSR or rate controlled. This patient is anticoagulated to prevent thromboembolic events. They are maintaining regular scheduled appts with their diesel engine tester. Aug, Chronic heart failure with preserved ejection [...] use, the patient reduces the risk for ND, CVA, HTN, cardiac dysrhythmias and sudden cardiac [...] supplement, exercise w/ healthy diet. Symptoms tolerable [employer] Other 01-18-2023 Progress note Author Debbie Mac [facility] September 06, 2022 9:57am Note Date/Time September 06, 2022 9 :53am [facility] [address] [place] [address] Cardiology Progress Note Signed Patient: Austin Golden MR#: [id number] : 1940 Acct:[id number] Age/Sex: 81 / F Adm Date: 3 Loc: 4P Room: [address] [place] [address] Type: ADM IN Attending Dr: Anival Easton [...] signed by MD Debbie Mac> 09/06/22 0957 [facility] Work Phone: 1([phone] 218-151201-17-2023 Progress note Author Anival Easton [facility] September 05, 2022 6:18pm Note Date/Time September 05, 2022 3 :58pm [facility] [address] [place] [address] Hospitalist Progress Note Signed Patient: Austin Golden MR#: [id number] : 1940 Acct:[id number] Age/Sex: 81 / F Adm Date: 3 Loc: Room: [address] [place] [address] Type: ADM IN Attending Dr: Anival Easton [...] mg 09/01/22 20:29 Bisacodyl 10 Mg Supp.Rect UT 09/01/23 20:28 DAILY PRN Constipation Docusate Sodium [...] the plan of care and confirmed the WATCH REPAIRER APPRENTICE's note above. Plan of care reflects my direct input Documented By: MELY Jacob 3 [id number] Signed By: <Electronically signed by MELY Haro> 09/05/22 1722 <Electronically signed by Anival Easton MD> 09/05/22 1818 [facility] Work Phone: 1(576) 841-519601-17-2023 Progress note Author Debbie Mac [facility] September 05, 2022 12:06pm Note Date/Time September 05, 2022 1 2:06pm [facility] [address] [place] [address] Cardiology Progress Note Signed Patient: Austin Golden MR#: [id number] : 1940 Acct:[id number] Age/Sex: 81 / F Adm Date: 3 Loc: Room: [address] [place] [address] Type: ADM IN Attending Dr: Anival Easton [...] % (Auto) 59.1 Lymph % (Auto) 25.6 [place] % (Auto) 9.7 Eos % (Auto) 4.7 Baso % (Auto) 0.9 Nucleat RBC Rel Count 0.2 Neut # (Auto) 3.3 Lymph # (Auto) 1.4 [place] # (Auto) 0.5 Eos # (Auto) 0.3 [...] <Electronically signed by MD Debbie Mac> 09/05/22 1204 [facility] Work Phone: 1(464) 665-437501-17-2023 Progress note Author Anival Easton [facility] September 05, 2022 8:27am Note Date/Time September 04, 2022 2 :47pm [facility] [address] [place] [address] Hospitalist Progress Note Signed Patient: Austin Golden MR#: [id number] : 1940 Acct:[id number] Age/Sex: 81 / F Adm Date: 3 Loc: Room: [address] [place] [address] Type: ADM IN Attending Dr: Anival Easton [...] mg 09/01/22 20:29 Bisacodyl 10 Mg Supp.Rect [place] 09/01/23 20:28 DAILY PRN Constipation Docusate Sodium [...] 2. Dysphagia?speech therapy, postrepair paraesophageal hiatal hernia [place] 2016 Attending attestation: Patient was personally seen by me on the day of encounter. I reviewed her history and performed shea elements of exam and formulated the plan of care and confirmed the nurse practitioner's note above. Documented By: MELY Jacob 3 1446 Signed By: <Electronically signed by RAY-AIB Haro> 09/04/221927 <Electronically signed by Anival Easton MD> 09/05/22 0827 [facility] Work Phone: 1(492) 826-442701-16-2023 Progress note Author Jimena Smith [facility] September 04, 2022 11:32am Note Date/Time September 04, 2022 1 1:32am [facility] [address] [place] [address] Cardiology Progress Note Signed Patient: Austin Golden MR#: [id number] : 1940 Acct:[id number] Age/Sex: 81 / F Adm Date: 3 Loc: Room: [address] [place] [address] Type: ADM IN Attending Dr: Anival Easton [...] % (Auto) 64.7 Lymph % (Auto) 22.7 [place] % (Auto) 7.6 Eos % (Auto) 4.3 Baso % (Auto) 0.7 Nucleat RBC Rel Count 0.2 Neut # (Auto) 4.3 Lymph # (Auto) 1.5 [place] # (Auto) 0.5 Eos # (Auto) 0.3 [...] pressure readings Documented By: Jimena Smith MD, [facility] 3 1129 Signed By: <Electronically signed by [facility] Jimena Smith> 09/04/22 1132 [facility] Work Phone: 1(995) 157-753701-15-2023 Progress note Author Jay Ceja [facility] September 03, 2022 1:12pm Note Date/Time September 03, 2022 1 :12pm [facility] [address] [place] [address] Hospitalist Progress Note Signed Patient: Austin Golden MR#: [id number] : 1940 Acct:[id number] Age/Sex: 81 / F Adm Date: 3 Loc: Room: [address] [place] [address] Type: ADM IN Attending Dr: Jay Ceja [...] mg 09/01/22 20:29 Bisacodyl 10 Mg Supp.Rect UT 09/01/23 20:28 DAILY PRN Constipation Bisacodyl 10 [...] problemsafter repair of a paraesophageal hiatal hernia [facility] and 2016. High-resolution CT scan of [...] by Jay Ceja DO> 09/03/22 1312 [facility] Work Phone: 1(691) 256-844201-15-2023 Progress note Author Jimena Smith [facility] September 03, 2022 12:24pm Note Date/Time September 03, 2022 1 2:21pm [facility] [address] [place] [address] Cardiology Progress Note Signed Patient: Austin Golden MR#: [id number] : 1940 Acct:[id number] Age/Sex: 81 / F Adm Date: 3 Loc: Room: [address] [place] [address] Type: ADM IN Attending Dr: Jay Ceja [...] % (Auto) 68.3 Lymph % (Auto) 19.1 [place] % (Auto) 8.2 Eos % (Auto) 3.9 Baso % (Auto) 0.5 Nucleat RBC Rel Count 0.2 Neut # (Auto) 5.0 Lymph # (Auto) 1.4 [place] # (Auto) 0.6 Eos # (Auto) 0.3 [...] add spironolactone Documented By: Jimena Smith MD, [facility] 3 1220 Signed By: <Electronically signed by MD CLAUDIA Smith> 09/03/22 1224 [facility] Work Phone: 1([phone]) 242-484601-14-2023 Consult note Author Jimena Smith [facility] September 02, 2022 2:58pm Note Date/Time September 02, 2022 2 :53pm [facility] [address] [place] [address] Cardiology Consult Note Signed Patient: Austin Golden MR#: [id number] : 1940 Acct:[id number] Age/Sex: 81 / F Adm Date: 3 Loc: Room: [address] [place] [address] Type: ADM IN Attending Dr: Jay Ceaj DO Copies to: DO Jimena Carias MD, [facility] Jay Ceja DO~ Cardiology HPI History [...] I covered above in HPI was unremarkable [facility] Vaccinated for COVID-19?: No Medical History (Updated [...] Social History Comments: independent living at the [place] in [facility] Medications and Allergies Allergies fentanyl [...] x10E3/uL Lymph # (Auto) 1.6 (1.00-4.8) x10E3/uL [place] # (Auto) 0.5 (0.0-0.8) x10E3/uL Eos # [...] ml @ 600 mls/hr IV [facility] Rx#:[id number] Amiodarone 360Mg-*D5w* 360 mg 200 / 200 200 / 400 200 / 400 In 200 ml @ 1 MG/MIN 33.333 mls /hr IV .Q6H KW[facility] Rx#:[id number] Oral 100 / 100 Other: # Voids [...] (primary) hypertension Documented By: Jimena Smith MD, [facility] 3 1452 Signed By: <Electronically signed by [facility] Jimena Smith> 09/02/22 1458 [facility] Work Phone: 1([phone]) 186-185301-14-2023 Progress note Author Jay Ceja [facility] September 02, 2022 2:42pm Note Date/Time September 02, 2022 1 :43pm [facility] [address] [place] [address] Hospitalist Progress Note Signed Patient: Austin Golden MR#: [id number] : 1940 Acct:[id number] Age/Sex: 81 / F Adm Date: 3 Loc: Room: [address] [place] [address] Type: ADM IN Attending Dr: Jay Ceja [...] mg 09/01/22 20:29 Bisacodyl 10 Mg Supp.Rect UT 09/01/23 20:28 DAILY PRN Constipation Bisacodyl 10 [...] signed by Jay Ceja DO> 09/02/22 1442 [facility] Work Phone: 1(737) 606-561101-13-2023 History and physical note Author Jay Ceja [facility] September 01, 2022 8:29pm Note Date/Time September 01, 2022 8 :29pm [facility] [address] [place] [address] Hospitalist H&P Signed Patient: Austin Golden MR#: [id number] : 1940 Acct:[id number] Age/Sex: 81 / F Adm Date: 3 Loc: ER Room: Type: [facility] ER Attending Dr: Copies to: Jazmin العلي,DO [...] review all of the events in the property assessment monitor system. None of these are consistent with [...] Social History Comments: independent living at the [facility] Medications and Allergies Allergies fentanyl Allergy [...] wheezing. No focal crackles. Heart: On the property assessment monitor she has an irregularly irregular rhythm with [...] % (Auto) 13.9 % (.) 09/01/22 12:40 [place] % (Auto) 7.5 % (.) 09/01/22 12:40 Eos % (Auto) 4.1 % (.) 09/01/22 12:40 Baso % (Auto) 0.8 % (.) 09/01/22 12:40 Nucleat RBC Rel Count 0.1 /100 WBC (0-0.5) 09/01/22 12:40 Neut # (Auto) 5.9 x10E3/uL (1.8-7.7) 09/01/22 12:40 Lymph # (Auto) 1.1 x10E3/uL (1.00-4.8) 09/01/22 12:40 [place] # (Auto) 0.6 x10E3/uL (0.0-0.8) 09/01/22 12:40 [...] pH 5.5 (5.0-9.0) 09/01/22 13:32 Ur Specific [place] 1.022 (1.001-1.030) 09/01/22 13:32 Urine Protein 30 [...] <Electronically signed by Jay Ceja DO> 09/01/222028 [facility] Work Phone: [phone]) 763-894109-08-2022 Evaluation note* Encounter Date Diagnosis Assessment Notes Treatment Notes Treatment Clinical Notes Apr, Cirrhosis (ICD-10 - K74.60) Apr, Vomiting (ICD-10 - R11.10) THIS IS 10 MINS ATER EATING AND UNDIGESTED FOODS. 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 PATIENT DID HAVE A MODIFIEDBARIUM SWALLOWNort [employer] Other 11-15-2021 Note [id number]#1.00CD:[address] [place] [address] 06-23-2021 [id number]:[facility] [place] [address] [place] Work Phone: 1(495) 969-431911-04-2021 [id number]:[facility] ECG Post Procedure [facility] [address] [place] Work Phone: 1([phone]) 846-444411-04-2021 [id number]:[facility] ECG Post Procedure [facility] [address] [place] Work Phone: [phone] 818-246611-02-2021 [facility] [place] COVID-19 FRMCNegative (Normal) Range:Negative Comments:Testing for SARS-CoV-2 by RT-PCR This test was developed and its performance characteristics determined by [employer] ([employer]) and validated at the [facility]. This test has not been FDA cleared [...] the authorization is terminated or revoked sooner.PERFORMED BY:[place] [address] [place] [place] [id number] MEDICAL DIRECTORVITOR ZARATE M.D. [place] [id number] [place] Work Phone: Comment on above:Testing for SARS-CoV-2 by RT-PCR This test was developed and its performance characteristics determined by [employer] (BD) and validated at the [facility]. This test has not been FDA cleared [...] the authorization is terminated or revoked sooner.PERFORMED BY:[place] [address] [place] [id number] MEDICAL DIRECTORVITOR ZARATE M.D. 06-21-2021 NoteCHOCT[facility] [place] COVID-19 [facility]ALIHINANegative (Normal)Range:Negative Comments:Testing for SARS-CoV-2 by RT-PCR This test was developed and its performance characteristics determined by [employer] (BD) and validated at the [facility]. This test has not been FDA cleared [...] the authorization is terminated or revoked sooner.PERFORMED BY:[place] [address] [place], [place] [id number] MEDICAL DIRECTORVITOR ZARATE M.D. [address] Work Phone: Comment on above:Testing for SARS-CoV-2 by RT-PCR This test was developed and its performance characteristics determined by [employer] ([employer]) and validated at the [facility]. This test has not been FDA cleared [...] the authorization is terminated or revoked sooner.PERFORMED BY:[place] [address] [place] [id number] MEDICAL DIRECTORVITOR ZARATE M.D. 06-21-2021 NoteFR COVID-19 FRMCNegative (Normal)Range:Negative Comments:Testing for SARS-CoV-2 by RT-PCR This test was developed and its performance characteristics determined by [employer] (BD) and validated at the [facility]. This test has not been FDA cleared [...] the authorization is terminated or revoked sooner.PERFORMED BY:[place] [address] [place], [place] [id number] MEDICAL DIRECTORVITOR ZARATE M.D. [address] Work Phone: Comment on above:Testing for SARS-CoV-2 by RT-PCR This test was developed and its performance characteristics determined by [employer] (BD) and validated at the [facility]. This test has not been FDA cleared [...] the authorization is terminated or revoked sooner.PERFORMED BY:[place] [address] [address] [id number] MEDICAL DIRECTORVITOR ZARATE M.D. 06-21-2021 NoteFR COVID-19 [facility]INANegative (Normal)Range:Negative Comments:Testing for SARS-CoV-2 by RT-PCR This test was developed and its performance characteristics determined by [employer] (BD) and validated at the [facility]. This test has not been FDA cleared [...] the authorization is terminated or revoked sooner.PERFORMED BY:[place] [address] [place] [id number] MEDICAL DIRECTORVITOR ZARATE M.D. [address] Work Phone: Comment on above:Testing for SARS-CoV-2 by RT-PCR This test was developed and its performance characteristics determined by [employer] (BD) and validated at the [facility]. This test has not been FDA cleared [...] the authorization is terminated or revoked sooner.PERFORMED BY:[place] [address] [place]UMI OLIV[place] [id number] MEDICAL DIRECTORVITOR ZARATE M.D. 06-21-2021 NoteFR COVID-19 [facility]ANegative (Normal)Range:Negative Comments:Testing for SARS-CoV-2 by RT-PCR This test was developed and its performance characteristics determined by [employer] (BD) and validated at the [facility]. This test has not been FDA cleared [...] the authorization is terminated or revoked sooner.PERFORMED BY:[place] [address] [place] [id number] MEDICAL SUZETTE ZARATE M.D. [address] Work Phone: Comment on above:Testing for SARS-CoV-2 by RT-PCR This test was developed and its performance characteristics determined by [employer] (BD) and validated at the [facility]. This test has not been FDA cleared [...] the authorization is terminated or revoked sooner.PERFORMED BY:[place] [address] [place], [place] [id number] MEDICAL DIRECTORVITOR ZARATE M.D. 06-21-2021 NoteFR COVID-19 FRNegative (Normal)Range:Negative Comments:Testing for SARS-CoV-2 by RT-PCR This test was developed and its performance characteristics determined by [employer] ([employer]) and validated at the [facility]. This test has not been FDA cleared [...] the authorization is terminated or revoked sooner.PERFORMED BY:[place] [address] [place] [id number] MEDICAL DIRECTORVITOR ZARATE M.D. [address] Work Phone: Comment on above:Testing for SARS-CoV-2 by RT-PCR This test was developed and its performance characteristics determined by [employer] (BD) and validated at the [facility]. This test has not been FDA cleared [...] the authorization is terminated or revoked sooner.PERFORMED BY:[place] [address] [place], [place] [id number] MEDICAL DIRECTORVITOR ZARATE M.D. 06-21-2021 NoteFR COVID-19 FRMCNegative (Normal)Range:Negative Comments:Testing for SARS-CoV-2 by RT-PCR This test was developed and its performance characteristics determined by [employer] ([employer]) and validated at the [facility]. This test has not been FDA cleared [...] the authorization is terminated or revoked sooner.PERFORMED BY:[place] [address] [place], [place] [id number] MEDICAL DIRECTORVITOR ZARATE M.D. [facility] [address] DO Work Phone: Comment on above:Testing for SARS-CoV-2 by RT-PCR This test was developed and its performance characteristics determined by [employer] (BD) and validated at the [facility]. This test has not been FDA cleared [...] the authorization is terminated or revoked sooner.PERFORMED BY:[address] [id number] MEDICAL DIRECTORVITOR ZARATE M.D. Chief complaint Narrative - ReportedAUSTIN GOLDEN is being seen for a cardiovascular evaluation of atrial fibrillation.KR-Sliixcyeff-Igsmqm Work Phone: Chief complaint Narrative - ReportedJUDKevin GOLDEN is being seen for a cardiovascular evaluation of atrial fibrillation. XH-Oihpsddnto-QVJ [address] [place] Work Phone: Consult note Author Jimena Smith [facility] September 02, 2022 2:58pm Note Date/Time September 02, 2022 2 :53pm [facility] [address] [place] [address] Cardiology Consult Note Signed Patient: Austin Golden MR#: [id number] : 1940 Acct:[id number] Age/Sex: 81 / F Adm Date: 3 Loc: Room: 7N9824-3 Type: ADM IN Attending Dr: Jay Ceja DO Copies to: DO Jimena Carias MD, [facility] Jay Ceja DO~ Cardiology [facility] History of Present Illness Consult Date: 09/02/22 [...] I covered above in HPI was unremarkable [facility] Vaccinated for COVID-19?: No Medical History (Updated [...] Social History Comments: independent living at the [place] [facility] Medications and Allergies Allergies fentanyl [...] x10E3/uL Lymph # (Auto) 1.6 (1.00-4.8) x10E3/uL [place] # (Auto) 0.5 (0.0-0.8) x10E3/uL Eos # [...] ml @ 600 mls/hr IV [facility] Rx#:[id number] Amiodarone 360Mg-*D5w* 360 mg 200 / 200 200 / 400 200 / 400 In 200 ml @ 1 MG/MIN 33.333 mls /hr IV .[facility]H [facility] Rx#:[id number] Oral 100 / 100 Other: # Voids [...] (primary) hypertension Documented By: Jimena Smith MD, [facility] 3 1452 Signed By: <Electronically signed by [facility] Jimena Smith> 09/02/22 1458 [facility] Work Phone: Consult note Author W Kwasi Dee [facility] Note Date/Time July 01, 2024 11:50am [facility] [address] [place] [address] Cardiology Consult Note Signed Patient: Austin Golden MR#: [id number] : 1940 Acct:[id number] Age/Sex: 83 / F Adm Date: 4 Loc: 3T Room: 0H8633-0 Type: ADM IN Attending Dr: Shilpa Fenton [...] heart catheterization performed earlier this year at [facility] revealing mild coronary disease and normal left [...] amiodarone to 400 daily, and repeat cardioversion [facility] Medical History (Updated 07/01/24 @ 11:49 by [...] List clean-up per request of Phys. [facility] right eye Problem List clean-up per request of Phys. EHR [facility] History of cataract surgery marybeth eye Problem List clean-up per request of Phys. EHR Cmte History of appendectomy Problem List clean-up per request of Phys. EHR [facility] History of tonsillectomy Problem List clean-up per request of Phys. EHR [facility] H/O foot surgery left Problem List clean-up per request of Phys. EHR Cmte History of hysterectomy Problem List clean-up per request of Phys. EHR [facility] Family History Father Heart & renal disease, hypertensive, with heart fail/chron kidney dis Depression Sister Heart disease Mother Brain tumor Father Mother Social History Smoking Status: Never smoker Substance Use Type: None Substance Abuse Comment: etoh occasional Social History Comments: independent living at the [place] in [facility] Medications and Allergies Allergies No Known Allergies [...] Lymph # (Auto) 1.4 1.4 (1.00-4.8) x10E3/uL [place] # (Auto) 0.6 0.5 (0.0-0.8) x10E3/uL Eos [...] risk medication use: Code(s): Z79.899 - 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 (3) Chronic heart failure [...] <Electronically signed by Javed Dee DO> 07/01/24 1155 [facility] Work Phone: Discharge summary Author Izzy Capps [facility] January 20, 2024 3:42pm Note Date/Time January 20, 2024 2:55p m [facility] [address] [place] [address] Discharge Summary Signed Patient: Austin Golden MR#: [id number] : 1940 Acct:[id number] Age/Sex: 83 / F Adm Date: 4 Loc: Room: [address] [place] [address]: Izzy Capps MD Copies to: [...] 1 mg tablet 1 mg PO QHS Lsle-Hjay-Qhjm(vit A,C-biotin) 2,500 unit-100 mg-2,500 mcg capsule 1 [...] Days Qty: 60 12RF Follow Up: [facility] [Provider Group] (Call office on Sunday to schedule follow-up with [facility]. ) Jazmin العلي DO [Primary Care [...] signed by Izzy Capps MD> 01/20/24 1542 [facility] Work Phone: Discharge [place] [phone] Discharge Summary Signed Patient: Austin Golden MR#: [id number] : 1940 Acct:[id number] Age/Sex: 83 / F Adm Date: 4 Loc: Room: [address] [place] [address]: Shilpa Fenton MD Copies to: DO Shilpa Carias MD~ Providers Date of Discharge: 07/03/24 Discharging Provider: Shilpa Fenton Primary Care Provider: Jazmin العلي Consults: 06/30/24 17:45 Consult to Cardiology Routine Comment: Consulting Provider: [facility] Reason For Exam: cp Has Provider Been [...] diastolic congestive heart failure, compensated Non-ST elevation ND type II Summary Hospital Course Hospital course: [...] denies any shortness of breath she was oherbevusq43% on room air at rest. Denies any [...] Laboratory work up and Imaging studies reviewed quality assurance monitor chassis - reviewed, after electrical cardioversion remained paced [...] % (Auto) 80.9, Lymph % (Auto) 10.9, [place] % (Auto) 5.6, Eos % (Auto) 2.3, Baso % (Auto) 0.3, Nucleat RBC Rel Count 0.1, Neut # (Auto) 7.9 H, Lymph # (Auto) 1.1, [place] # (Auto) 0.5, Eos # (Auto) 0.2, Baso # (Auto) 0.0, PHA Creatinine Clear 36.26, Sodium 139, Potassium 3.6, Chloride 106, Carbon Dioxide 25.5, Anion Gap 11.1, BUN 23, Creatinine 1.07, Est GFR (CKD-EPI) 52.185, [id number] H, Calcium 8.3 L Documented By: Shilpa Fenton MD 07/03/241647 Signed By: 07/03/24 165 [facility] Shilpa Fenton [facility] Note Date/Time July 03, 2024 4:51pm [facility] [address] [place] [address] Discharge Summary Signed Patient: Austin Golden MR#: [id number] : 1940 Acct:[id number] Age/Sex: 83 / F Adm Date: 4 Loc: Room: [address] [place] [address]: Shilpa Fenton MD Copies to: DO Shilpa Carias MD~ Providers Date of Discharge: 07/03/24 Discharging Provider: Shilpa Fenton Primary Care Provider: Jazmin العلي Consults: 06/30/24 17:45 Consult to Cardiology Routine Comment: Consulting Provider: [facility] Reason For Exam: cp Has Provider [...] diastolic congestive heart failure, compensated Non-ST elevation ND type II Summary Hospital Course Hospital course: [...] Laboratory work up and Imaging studies reviewed quality assurance monitor chassis - reviewed, after electrical cardioversion remained paced [...] % (Auto) 80.9, Lymph % (Auto) 10.9, [place] % (Auto) 5.6, Eos % (Auto) 2.3, Baso % (Auto) 0.3, Nucleat RBC Rel Count 0.1, Neut # (Auto) 7.9 H, Lymph # (Auto) 1.1, [place] # (Auto) 0.5, Eos # (Auto) 0.2, Baso # (Auto) 0.0, PHA Creatinine Clear 36.26, Sodium 139, Potassium 3.6, Chloride 106, Carbon Dioxide 25.5, Anion Gap 11.1, BUN 23, Creatinine 1.07, Est GFR (CKD-EPI) 52.185, [id number] H, Calcium 8.3 L Documented By: Shilpa Fenton MD 07/03/24 1648 Signed By: <Electronically signed by Shilpa Fenton MD> 07/03/24 1651 [facility] Work Phone: Evaluation noteNo assessment information available [facility] Work Phone: [email or web address] noteNo InformationNort [employer] Other Evaluation note* Diagnosis Onset Date Resolution Status Atrial fibrillation with rapid ventricular response acute CHF (congestive heart failure) acute Dysphagia acute Dyspnea on exertion acute Hypertension acute Sick sinus syndrome acute Ventricular tachycardia acut e Weakness acute [facility] Work Phone: Evaluation note* Diagnosis Onset Date Resolution Status Atrial fibrillation with rapid ventricular response acute CHF (congestive heart failure) acute Dysphagia acute Dyspnea on exertion acute HTN (hypertension), benign a cute Hypertension acute Left ventricular systolic dysfunction, NYHA class 2 acute Sick sinus syndrome acute Ventricular tachycardia acut e Weakness acute [facility] Work Phone: Evaluation note* Diagnosis Onset Date Resolution Status Atrial fibrillation with rapid ventricular response acute CHF (congestive heart failure) acute Dysphagia acute Dyspnea on exertion acute HTN (hypertension), benign a cute Hypertension acute Left ventricular systolic dysfunction, NYHA class 2 acute Sick sinus syndrome acute Ventricular tachycardia acut e Weakness acute Atrial fibrillation with rapid ventricular response acute Syncope acute [facility] Work Phone: evaluation note* Diagnosis [...] dysfunction, NYHA class 2 acute Syncope acute [facility] Work Phone: Evaluation note* Diagnosis [...] acute Syncope acute Atrial fibrillation, persistent acute [facility] Work Phone: Evaluation note* Diagnosis Onset Date Resolution Status Anticoagulated acute Atrial fibrillation with rapid ventricular response acute Dyspnea on exertion acute Hypertension acute Left ventricular systolic dysfunction, NYHA class 2 acute Syncope acute Atrial fibrillation, persistent acute [facility] Work Phone: Evaluation note* Diagnosis [...] Dyspnea, unspecified type documented in this encounter [facility] Work Phone: Evaluation note* Diagnosis Chronic diastolic heart failure (CMS/HCC) Chronic diastolic heart failure Essential hypertension, benign Dyspnea, unspecified type documented in this encounter [facility] Work Phone: Evaluation note* Diagnosis Chronic diastolic heart failure (CMS/HCC) Chronic diastolic heart failure Essential hypertension, benign Dyspnea, unspecified type documented in this encounter [facility] Work Phone: Evaluation note* Diagnosis Persistent atrial fibrillation (CMS/HCC)- Primary Atrial fibrillation 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) Chronic diastolic heart failure (CMS/HCC) Chronic diastolic heart failure Essential hypertension, benign Mixed hyperlipidemia Pacemaker Cardiac pacemaker in situ Sinus bradycardia Other specified cardiac dysrhythmias Single vessel coronary artery disease Coronary atherosclerosis of unspecified type of vessel, holy cross or graft documented in this encounter [facility] Work Phone: Evaluation note* Diagnosis Onset Date Resolution Status 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) acute Hypercholesterolemia acute Lumbar spondylosis acute Obstructive sleep apnea acut e Paroxysmal atrial fibrillation acute Primary hypertension acute Stage 3a chronic kidney disease acute [facility] Work Phone: Evaluation note* Diagnosis Onset [...] acute Stage 3a chronic kidney disease acute [facility] Work Phone: Evaluation note* Diagnosis [...] hernia noneacti ve Nausea & vomiting noneactive [facility] Work Phone: Evaluation note* Diagnosis Onset [...] acute Hx of hiatal hernia noneacti ve [facility] Work Phone: Evaluation note* Diagnosis Onset [...] acute Stage 3a chronic kidney disease acute [facility] Work Phone: Evaluation note* Diagnosis Onset [...] GERD (gastroesophageal reflux disease) acute Vomiting acute [facility] Work Phone: Evaluation note* Diagnosis Esophageal [...] smoked any substance documented in this encounter [facility] Work Phone: Evaluation note* Diagnosis Esophageal dysphagia [...] use of anticoagulants documented in this encounter [facility] Work Phone: Evaluation note* Diagnosis NO SHOW- Primary [facility] Atrial flutter, unspecified type (Multi)- Primary Persistent atrial fibrillation (Multi) Atrial fibrillation High risk medication use Anticoagulated Encounter for long-term (current) use of anticoagulants Chronic diastolic heart failure (Multi) Chronic diastolic heart failure Single vessel coronary artery disease Coronary atherosclerosis of unspecified type of vessel, holy cross or graft 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 (Multi) Pacemaker Cardiac pacemaker in situ Essential hypertension, benign Mixed hyperlipidemia Gallstones Calculus of gallbladder without mention of cholecystitis or obstruction Stage 3a chronic kidney disease (Multi) Shortness of breath BMI 30.0-30.9,adult documented in this encounter [facility] Work Phone: Evaluation note* Diagnosis High risk medication use- Primary Diastolic heart failure, unspecified HF chronicity (Multi) Abnormal EKG Nonspecific abnormal electrocardiogram (ECG) (EKG) Anticoagulation management encounter Encounter for therapeutic drug monitoring Longstanding persistent atrial fibrillation (Multi) Sinus bradycardia Other specified cardiac dysrhythmias Pacemaker Cardiac pacemaker in situ BMI 30.0-30.9,adult Never smoked tobacco documented in this encounter [facility] Work Phone: Evaluation note* Diagnosis High risk medication use- Primary Pacemaker Cardiac pacemaker in situ Anticoagulation management encounter Encounter for therapeutic drug monitoring Longstanding persistent atrial fibrillation (Multi) Sinus bradycardia Other specified cardiac dysrhythmias BMI 28.0-28.9,adult Never smoked any substance documented in this encounter [facility] Work Phone: Evaluation note* Diagnosis Atrial flutter, unspecified type (Multi)- Primary Essential hypertension, benign Chronic diastolic heart failure (Multi) Chronic diastolic heart failure Mixed hyperlipidemia Sinus bradycardia Other specified cardiac dysrhythmias Single vessel coronary artery disease Coronary atherosclerosis of unspecified type of vessel, holy cross or graft Anticoagulated Encounter for long-term (current) use of anticoagulants Shortness of breath Never smoked any substance BMI 28.0-28.9,adult documented in this encounter [facility] Work Phone: Evaluation note* Diagnosis Pacemaker- Primary Cardiac pacemaker in situ Persistent atrial fibrillation (Multi) Atrial fibrillation Essential hypertension, benign Diastolic heart failure, unspecified HF chronicity (Multi) High risk medication use BMI 28.0-28.9,adult 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 (Multi) Sinus bradycardia Other specified cardiac dysrhythmias Never smoked any substance documented in this encounter [facility] Work Phone: Evaluation note* Diagnosis Esophageal dysphagia- Primary Dysphagia, pharyngoesophageal phase [facility] Diagnosis Persistent atrial fibrillation (Multi)- Primary Atrial fibrillation Atrial flutter, unspecified type (Multi) High risk medication use Single vessel coronary artery disease Coronary atherosclerosis of unspecified type of vessel, holy cross or graft 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 (Multi) Pacemaker Cardiac pacemaker in situ Mixed hyperlipidemia Essential hypertension, benign Chronic diastolic heart failure Anticoagulated Encounter for long-term (current) use of anticoagulants BMI 28.0-28.9,adult Stage 3a chronic kidney disease (Multi) Shortness of breath Never smoked any substance documented in this encounter [facility] Work Phone: Evaluation note* Diagnosis Pacemaker Cardiac pacemaker in situ Sick sinus syndrome (Multi) Sinoatrial node dysfunction documented in this encounter [facility] Work Phone: Evaluation note* Diagnosis Pacemaker Cardiac pacemaker in situ Sick sinus syndrome (Multi) Sinoatrial node dysfunction Persistent atrial fibrillation (Multi) Atrial fibrillation High risk medication use 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 (Multi) Essential hypertension, benign Chronic diastolic heart failure BMI 27.0-27.9,adult Never smoked tobacco documented in this encounter [facility] Work Phone: Evaluation note* Diagnosis Esophageal dysphagia- [...] pacemaker in situ documented in this encounter [facility] Work Phone: Evaluation note* Diagnosis Acquired deformity of left toe- Primary Acquired deformity of right toe Pain due to onychomycosis of toenails of both feet documented [facility] encounter [facility]* Diagnosis High risk medication use- Primary Essential hypertension, benign Pacemaker Cardiac pacemaker in situ Persistent atrial fibrillation (Multi) Atrial fibrillation Anticoagulated Encounter for long-term (current) use of anticoagulants Shortness of breath documented in this encounter [facility] Work Phone: Evaluation note* Diagnosis Cellulitis of left foot- Primary Pain due to onychomycosis of toenails of both feet Acquired deformity of left toe Acquired deformity of right toe Foot ulcer, left, with fat layer exposed (HCC) documented in this encounter [facility]* Diagnosis Persistent atrial fibrillation (Multi)- Primary Atrial fibrillation Pre-op testing Unspecified pre-operative examination Persistent atrial fibrillation (Multi) Atrial fibrillation documented in this encounter [facility] Work Phone: History and physical note Author Ángel Minaya [facility] Note Date/Time January 22, 2025 11:17 pm [facility] [address] [place] [address] Hospitalist H&P Signed Patient: Austin Golden MR#: [id number] : 1940 Acct:[id number] Age/Sex: 84 / F Adm Date: 5 Loc: ER Room: Type: [facility] ER Attending Dr: Copies to: MD Jazmin Connor DO Thomas D Kramer Jr, MD~ HPI DATE OF EXAMINATION: 01/22/25 CHIEF COMPLAINT: Shortness of breath HISTORY OF PRESENT ILLNESS: This is a 84-year-old female with significant past medical history of atrial fibrillation, CKD, coronary artery disease, anxiety, GERD, pulmonary hypertension, TSONEY, hyperlipidemia, depression, hypertension, presented to [facility] ED with chief complaints of worsening shortness [...] negative unless noted below or in HPI [facility] Medical History (Updated 01/22/25 @ 23:17 by [...] List clean-up per request of Phys. EHR [facility] History of repair of [...] Social History Comments: independent living at the [facility] Medications and Allergies Allergies No Known [...] % (Auto) 17.7 % (.) 01/22/25 20:54 [place] % (Auto) 7.9 % (.) 01/22/25 20:54 Eos % (Auto) 2.5 % (.) 01/22/25 20:54 Baso % (Auto) 1.2 % (.) 01/22/25 20:54 Nucleat RBC Rel Count 0.2 /100 WBC (0-0.5) 01/22/25 20:54 Neut # (Auto) 5.5 x10E3/uL (1.8-7.7) 01/22/25 20:54 Lymph # (Auto) 1.4 x10E3/uL (1.00-4.8) 01/22/25 20:54 [place] # (Auto) 0.6 x10E3/uL (0.0-0.8) 01/22/25 20:54 [...] hypertension, STONEY, hyperlipidemia, depression, hypertension, presented to [facility] ED with chief complaints of worsening shortness [...] 4 Documented By: Ángel Minaya MD 01/22/25 2309 Signed By: <Electronically signed by Ángel Minaya MD> 01/22/25 8011 [facility] Work Phone: History general Narrative - [...] no history of trauma and substance abuse [facility] Other [facility] general Narrative - Reported* Type Description Date [...] substance abuse Hospitalization History SEE SURGICAL HX [facility] Other History general Narrative - Reported* Type [...] and substance abuse Hospitalization History SEE SURGICAL [facility] Other History of Present illness Narrative* Patient [...] testing * 6. Follow-up with pacemaker clinic [facility] DO Work Phone: History of Present illness [...] the above has been addressed by her spa therapist Dr. Mota. She reports she underwent esophageal [...] exercise and try to lose some weight -[facility] DO Work Phone: History of [...] I reviewed her pacemaker check with her -[facility] Work Phone: History of [...] advised her to restrict her salt intake [facility] Work Phone: History of Present illness Narrative* [...] advised her to restrict her salt intake [facility] Work Phone: History of Present illness Narrative* [...] advised her to restrict her salt intake [facility] Work Phone: History of Present illness Narrative* [...] by mouth Daily, Disp: , Rfl: HYDROcodone-acetaminophen ([place]) 10-325 MG tablet, 1 tablet, Disp: , [...] Resource Strain: Low Risk (03/21/2024) Received from [facility] Overall Financial Resource Strain (CARDIA) Difficulty of Paying Living Expenses: Not hard at all Food Insecurity: Not on file Transportation Needs: No Transportation Needs (03/24/2024) Received from [facility] PRAPARE - Transportation Lack of Transportation (Medical): No Lack of Transportation (Non-Medical): No Physical Activity: Not on file Stress: Not on file Social Connections: Not on file Intimate Partner Violence: Unknown (02/14/2024) Received from [facility] [place] Safety & Environment Fear of Current or Ex-Partner: Not on file Emotionally Abused: Not on file Physically Abused: Not on file Sexually Abused: Not on file Physically or Sexually Abused: Not on file Housing Stability: Low Risk (03/21/2024) Received from [facility] Housing Stability Vital Sign Unable to Pay [...] Podiatry Joseph Sepulveda DPM [facility] Additional Instructions Speech therapy recommendations: *Take pills whole with water *Sit upright at 90 degrees during all oral intake *Sit upright for 30 minutes after meals and snacks Dietitian recommendations: *Boost plus, 1 container, daily [facility] Work Phone: Hospital Discharge instructions Additional Instructions You are scheduled for an EKG at /[facility] on 09/27/2022 at 1:00pm [facility] Work Phone: Progress note Author Jay Ceja [facility] September 02, 2022 2:42pm Note Date/Time September 02, 2022 1 :43pm [facility] [address] [place] [address] Hospitalist Progress Note Signed Patient: Austin Golden MR#: [id number] : 1940 Acct:[id number] Age/Sex: 81 / F Adm Date: 3 Loc: Room: [address] [place] [address] Type: ADM IN Attending Dr: Jay Ceja [...] mg 09/01/22 20:29 Bisacodyl 10 Mg Supp.Rect [place] 09/01/23 20:28 DAILY PRN Constipation Bisacodyl 10 [...] signed by Jay Ceja DO> 09/02/22 1442 [facility] Work Phone: Progress note Author Shilpa Fenton [facility] Note Date/Time July 01, 2024 3:17pm [facility] [address] [place] [address] Hospitalist Progress Note Signed Patient: Austin Golden MR#: [id number] : 1940 Acct:[id number] Age/Sex: 83 / F Adm Date: 4 Loc: Room: [address] [place] [address] Type: ADM IN Attending Dr: Shilpa Fenton [...] Laboratory work up and Imaging studies reviewed quality assurance monitor chassis - reviewed, remains in atrial fibrillation but [...] stable Documented By: Shilpa Fenton MD 07/01/24 3731 Signed By: <Electronically signed by Shilpa Fenton MD> 07/01/24 8150 [facility] Work Phone: Progress note Author Shilpa Fenton [facility] Note Date/Time July 02, 2024 1:06pm [facility] [address] [place] [address] Hospitalist Progress Note Signed Patient: Austin Golden MR#: [id number] : 1940 Acct:[id number] Age/Sex: 83 / F Adm Date: 4 Loc: Room: [address] [place] [address] Type: ADM IN Attending Dr: Shilpa Fenton [...] Laboratory work up and Imaging studies reviewed quality assurance monitor chassis - reviewed, remains in atrial fibrillation but [...] 07/02/24 1303 Signed By: <Electronically signed by Shilap Fenton MD> 07/02/24 1306 [facility] Work Phone: Progress note Author W Kwasi Dee [facility] Note Date/Time July 02, 2024 3:59pm [facility] [address] [place] [address] Cardiology Progress Note Signed Patient: Austin Golden MR#: [id number] : 1940 Acct:[id number] Age/Sex: 83 / F Adm Date: 4 Loc: Room: [address] [place] [address] Type: ADM IN Attending Dr: Shilpa Fenton [...] heart catheterization performed earlier this year at [facility] revealing mild coronary disease and normal left [...] % (Auto) 72.9 Lymph % (Auto) 19.1 [place] % (Auto) 4.8 Eos % (Auto) 1.9 Baso % (Auto) 1.3 Nucleat RBC Rel Count 0.2 Neut # (Auto) 6.7 Lymph # (Auto) 1.7 [place] # (Auto) 0.4 Eos # (Auto) 0.2 [...] risk medication use: Code(s): Z79.899 - Other chcf (current) drug therapy (3) Chronic heart failure [...] signed by Javed Dee DO> 07/02/24 1559 [facility] Work Phone: Reason for referral (narrative)* Consultation (Routine) - Authorized Specialty Diagnoses / Procedures Referred By Ashtyn t Referred To Contact Cardiology Diagnoses 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) Pacemaker Sinus bradycardia Debbie Mac MD [address] [place] [address] Referral ID Status Reason Start Date Expiration Date Visits Requested Visits Authorized [id number] Authorized Specialty Services Required 09/19/2023 09/18/2024 1 1 * Cardiovascular (Routine) - Authorized Specialty Diagnoses / Procedures Referred By Ashtyn t Referred To Contact Diagnoses Persistent atrial fibrillation (CMS/HCC) Procedures ECG 12 Lead Debbie Mac MD [address] [place] [address] Referral ID Status Reason Start Date Expiration Date V isits Requested Visits Authorized [id number] Authorized 09/19/2023 09/18/2024 1 1 * Consultation (Routine) - Authorized Specialty Diagnoses / Procedures Referred By Ashtyn t Referred To Contact Cardiology Diagnoses Persistent atrial fibrillation (CMS/HCC) 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) Chronic diastolic heart failure (CMS/HCC) Procedures Follow Up In Cardiology Debbie Mac MD [address] [place] [address] Debbie Mac MD [address] [place] [address] Referral ID Status Reason Start Date Expiration Date V isits Requested Visits Authorized [id number] Authorized 09/19/2023 09/18/2024 1 1 [facility] Work Phone: Reason for referral (narrative)* Tests/Procedures (Routine) - Authorized Specialty Diagnoses / Procedures Referred By Contac t Referred To Contact Gastroenterology Diagnoses Esophageal dysphagia Katie Yung MD [address] [place] [address] [facility] [address] [place] [address] Referral ID Status Reason Start Date Expiration Date Visits Requested Visits Authorized [id number] Authorized Consultatio n-[facility] 05/15/2024 05/15/2025 1 1 Scheduling Instructions [facility] Division of Gastroenterology [address] [place] [address] ESOPHAGEAL MANOMETRY WHAT IS ESOPHAGEAL MANOMETRY? Esophageal [...] may eat once you get home. LOCATION: [facility] End[facility] Suite located at [address] [place] [address]. - Plan to arrive at least 60 minutes before your scheduled procedure. Please also plan extra time for parking and shuttle service. - Bring your photo ID, insurance card, and medication insurance card. - Parking is available in the [employer] [facility] accessible from [facility]. - 12/03 shuttle service from the garage to [facility] is available. - Go to the ground floor of the parking garage to reach the shuttle pick-up station located near the elevator and stairs. - Shuttle service will drop you off at [facility] Main Entrance. - Family And Divorce Legal Assistant service is available at [facility] Main Entrance if you would prefer balance wheel hand filer over parking ([facility] Family And Divorce Legal Assistant Service Hours: Sunday-Sunday, 5:30am- 8:00pm). - Enter [facility] Main Entrance and go to the Admitting/Registration Desk to check in for your procedure. - The Endoscopy department is located on the 1st floor of [facility]. Please call [phone] Sunday-Sunday, 7:00am-6:00pm if you have any pre- procedural questions. If you are calling AFTER HOURS, please call [phone] to speak to the [facility] Nurse supervisor chlorine liquefaction. If you need to cancel this appointment prior to the scheduled date, please call the Endoscopy call center at [phone] at least 48 hours before the appointment/procedure time. Test Date: Test Time: We make every attempt to maintain our schedule, however, it is not always possible. Some procedures may take longer than others and our cases are scheduled to follow one another. We apologize for any delays. For any questions before your appointment, please call [phone] or [phone]. To cancel or change your appointment please call the Gastroenterology scheduling line at [phone]. [facility] (narr[facility])* Consultation (Routine) - Authorized Specialty Diagnoses / Procedures Referred By Contac t Referred To Contact Cardiology Diagnoses High risk medication use Pacemaker Anticoagulation management encounter Longstanding persistent atrial fibrillation (Multi) Sinus bradycardia BMI 28.0-28.9,adult Never smoked any substance Procedures Follow Up In Cardiology Maxwell Medrano MD [address] [address] Referral ID Status Reason Start Date Expiration Date V isits Requested Visits Authorized [id number] Authorized 04/17/2024 04/17/2025 1 1 * Consultation (Routine) - Authorized Specialty Diagnoses / Procedures Referred By Contac t Referred To Contact Cardiology Diagnoses High risk medication use Pacemaker Anticoagulation management encounter Longstanding persistent atrial fibrillation (Multi) Sinus bradycardia BMI 28.0-28.9,adult Never smoked any substance Procedures Follow Up In Cardiology Maxwell Medrano MD [address] [place] [address] Referral ID Status Reason Start Date Expiration Date V isits Requested Visits Authorized [id number] Authorized 04/17/2024 04/17/2025 1 1 * Cardiovascular (Routine) - Authorized Specialty Diagnoses / Procedures Referred By Contac t Referred To Contact Diagnoses High risk medication use Procedures ECG 12 lead (Clinic Performed) Maxwell Medrano MD [address] [place] [address] Referral ID Status Reason Start Date Expiration Date V isits Requested Visits Authorized [id number] Authorized 04/17/2024 04/17/2025 1 1 [facility] Work Phone: reason for referral (narrative)* Consultation [...] Follow Up In Cardiology Maxwell Medrano MD [address] [place] [address] Referral ID Status Reason Start Date Expiration Date V isits Requested Visits Authorized [id number] Authorized 04/28/2024 04/28/2025 1 1 [facility] Work Phone: reason for visit Narrative* Diagnostic X-Ray (Routine) - Closed Specialty Diagnoses / Procedures Referred By Ashtyn t Referred To Contact Radiology Diagnoses Esophageal dysphagia Procedures FL BARIUM SWALLOW DOUBLE CNTRST FL BARIUM SWALLOW SINGL CNTRST Katie Yung MD [address] [place] [address] Phone: tel: fax: [facility] [address] [place] [address] Phone: tel: Referral ID Status Reason Start Date Expiration Date Visits Re quested Visits Authorized [id number] Closed 06/19/2024 06/19/2025 1 1 [facility] Imaging (Routine) - Pending Review Specialty Diagnoses / Procedures Referred By Ashtyn t Referred To Contact Cardiology Diagnoses Pacemaker Sick sinus syndrome (Multi) Procedures Cardiac Device Check - Remote Maxwell Medrano MD [address] [address] Phone: tel: fax: Referral ID Status Reason Start Date Expiration Date Visits Requested Visits Authorized [id number] Pending Review Perform Procedure 09/08/2024 09/08/2025 52 52 [facility] Work Phone: reason for visit Narrative* Imaging (Routine) - Pending Review Specialty Diagnoses / Procedures Referred By Ashtyn dobson Referred To Contact Cardiology Diagnoses Pacemaker Procedures Cardiac Device Check - Remote Maxwell Medrano MD [address] [address] Phone: tel: fax: Referral ID Status Reason Start Date Expiration Date Visits Requested Visits Authorized [id number] Pending Review Perform Procedure 10/23/2024 10/23/2025 52 52 [facility] Work Phone: reason for visit Narrative* Imaging (Routine) - Authorized Specialty Diagnoses / Procedures Referred By Awaac t Referred To Contact Radiology Diagnoses Persistent atrial fibrillation (Multi) Procedures CT angio chest pre pulmonary vein ablation planning gated CT heart structure morphology congenital heart disease w IV contrast Maxwell Medrano MD [address] [facility] [address] [place] [address] Phone: tel: fax: Referral ID Status Reason Start Date Expiration Date Visits Requested Visits Authorized [id number] Authorized Perform Procedure 10/23/2024 10/23/2025 1 1 [facility] Work Phone: Summary Purpose Family History No [...] 3:33pm Hospital Course Note MR#: [id number] I [facility] Pt. Name: Austin Golden Admitted: 07/26/2020 Discharged: [...] Mac MD to [facility] ast tsh onlyAUSTIN GOLDEN [...] She was recently in the hospital at [facility] for Afib and was taken off Metoprolol [...] hospital follow up R11.2 Amb Documentation [facility], Conversion/ 4 month f/u Reason for Visit [...] hospital follow up R11.2 Amb Documentation [facility], Conversion/ 4 month f/u trouble vomiting Reason [...] hospital follow up R11.2 Amb Documentation [facility], Conversion/ 4 month f/u trouble vomiting z79.899 [...] hospital follow up R11.2 Amb Documentation [facility], Conversion/ 4 month f/u trouble vomiting z79.899 [...] disease) Vomiting Chief Complaint Amb Documentation [facility], Conversion/ 4 month f/u trouble vomiting z79.899 [...] reflux disease) Chief Complaint Amb Documentation [facility], Conversion/ 4 month f/u trouble vomiting z79.899 [...] kidney disease Chief Complaint Admit Date [facility], Conversion/ 4 month f/u Augus 2023 3:40pm [...] 2024 11:45am GERD (gastroesophageal reflux disease) [facility] 2023 11:45am Paroxysmal atrial fibrillation May [...] 2024 5:45pm Chief Complaint Admit Date [facility], Conversion/ 4 month f/u Augus t 2023 [...] N Stemi July 23, 2024 1 2:56pm [facility] follow up-HIGH RISK July 31, 2024 11:23am [...] N Stemi July 23, 2024 1 2:56pm [facility] follow up-HIGH RISK July 31, 2024 11:23am [...] N Stemi July 23, 2024 1 2:56pm [facility] follow up-HIGH RISK July 31, 2024 11:23am [...] N Stemi July 23, 2024 1 2:56pm [facility] follow up-HIGH RISK July 31, 2024 11:23am [...] N Stemi July 23, 2024 1 2:56pm [facility] follow up-HIGH RISK July 31, 2024 11:23am [...] N Stemi July 23, 2024 1 2:56pm [facility] follow up-HIGH RISK July 31, 2024 11:23am [...] 09, 2024 3:04pm ASHD (arteriosclerotic heart disease) [facility] 2024 3:04pm Atrial fibrillation September [...] ECG 12 Lead Debbie Mac MD [address] [address], [place] [address] Referral ID Status Reason Start Date Expiration Date V isits Requested Visits Authorized [id number] Authorized 04/24/2024 04/24/2025 1 1 Specialty Diagnoses / Procedures Referred By Ashtyn dobson Referred To Contact Cardiology Diagnoses Atrial flutter, unspecified type (Multi) Procedures Follow Up In Cardiology Debbie Mac MD 703 [facility] 2, Eduardo [address] [place] [address] Debbie Mac MD 703 [facility] 2, [address] [address] Referral ID Status Reason Start Date Expiration Date V isits Requested Visits Authorized [id number] Authorized 04/24/2024 04/24/2025 1 1 Specialty Diagnoses / Procedures Referred By Contac t Referred To Contact Diagnoses High risk medication use Procedures ECG 12 Lead Maxwell Medrano MD [address] [place] [address] Referral ID Status Reason Start Date Expiration Date V isits Requested Visits Authorized [id number] Authorized 02/28/2024 02/27/2025 1 1 Specialty Diagnoses / Procedures Referred By Contac t Referred To Contact Cardiology Diagnoses High risk medication use Diastolic heart failure, unspecified HF chronicity (Multi) Abnormal EKG Anticoagulation management encounter Longstanding persistent atrial fibrillation (Multi) Sinus bradycardia Pacemaker BMI 30.0-30.9,adult Never smoked tobacco Procedures Follow Up In Cardiology Maxwell Medrano MD [address] [address] Referral ID Status Reason Start Date Expiration Date V isits Requested Visits Authorized [id number] Authorized 02/28/2024 02/27/2025 1 1 Specialty Diagnoses / Procedures Referred By Contac t Referred To Contact Anesthesiology Diagnoses Esophageal dysphagia Katie Yung MD [address] [place] [address] [facility] PRE ADMISSION TESTING [address] [place] [address] Referral ID Status Reason Start Date Expiration Date V isits Requested Visits Authorized [id number] Authorized 05/15/2024 05/15/2025 1 1 Scheduling Instructions Your surgical team will reach out to you to schedule a pre-admission testing appointment. Question Answer Reason for consult? Recommended PAT Risk Score Specialty Diagnoses / Procedures Referred By Contac t Referred To Contact Cardiology Diagnoses Chronic diastolic heart failure (CMS/HCC) Essential hypertension, benign Dyspnea, unspecified type Procedures Transthoracic Echo (TTE) Complete UT ECHO TRANSTHORC R-T 2D W/WO M-MODE REC F-UP/LMTD UT DOP ECHOCARD COLOR FLOW VELOCITY MAPPING UT DOP ECHOCARD PULSE WAVE W/SPECTRAL F-UP/LMTD STD Debbie Mac MD [address] [place] [address] 2, [address] [address] [address] [address] Referral ID Status Reason Start Date Expiration Date Visits Requested Visits Authorized [id number] Pending Review Perform Procedure 11/27/2023 1 1 Specialty Diagnoses / Procedures Referred By Contac t Referred To Contact Cardiology Diagnoses Persistent atrial fibrillation (CMS/HCC) 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) Chronic diastolic heart failure (CMS/HCC) Essential hypertension, benign Procedures Follow Up In Cardiology Debbie Mac MD 703 [facility] 2, [address] [address] Referral ID Status Reason Start Date Expiration Date V isits Requested Visits Authorized [id number] Authorized 05/31/2023 11/27/2023 1 1 Specialty Diagnoses / Procedures Referred By Contac t Referred To Contact Diagnoses Persistent atrial fibrillation (CMS/HCC) 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) Procedures ECG 12 Lead Debbie Mac MD [address] [place] [address] 2, [address] [address] Referral ID Status Reason Start Date Expiration Date V isits Requested Visits Authorized [id number] Pending Review 05/31/2023 11/27/2023 1 1 Additional Source Comments INFORMATION SOURCE (unrecogn ized section and content) DATE CREATED AUTHOR 08/08/2020 [facility] DATE CREATED AUTHOR AUTHOR'S ORGANIZ ATION 10/10/2021 [facility] DATE CREATED AUTHOR AUTHOR'S ORGANIZ ATION 12/28/2022 [facility] DATE CREATED AUTHOR AUTHOR'S ORGANIZ ATION 01/04/2023 [facility] DATE CREATED AUTHOR AUTHOR'S ORGANIZ ATION 01/30/2023 [facility] DATE CREATED AUTHOR AUTHOR'S ORGANIZ ATION 03/23/2024 [facility] DATE CREATED AUTHOR AUTHOR'S ORGANIZ ATION 03/31/2024 [facility] DATE CREATED AUTHOR AUTHOR'S ORGANIZ ATION 10/16/2024 [facility] DATE CREATED AUTHOR AUTHOR'S ORGANIZ ATION 01/06/2025 [facility] DATE CREATED AUTHOR AUTHOR'S ORGANIZ ATION 03/02/2025 [facility] DATE CREATED AUTHOR AUTHOR'S ORGANIZ ATION 04/30/2025 [facility] DATE CREATED AUTHOR AUTHOR'S ORGANIZ ATION 04/30/2025 [facility] DATE CREATED AUTHOR AUTHOR'S ORGANIZ ATION 05/01/2025 [facility] DATE CREATED AUTHOR AUTHOR'S ORGANIZ ATION 05/03/2025 [facility] dical Specialists EPIC Care Teams (unrecognized [...] MD Other Provider Active Dee Quach , BUSINESS 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 Other Provider Active Bety Haile MD Other Provider Active Anoop Zhang MD Other Provider Active Isra Pedro MD Other Provider Active Cristiana Chapa , [facility] Other Provider Active Yessy Ackerman MD Other Provider Active Katie Dukes , Attending Provider Active Team Status: Inactive Member Role Status Dates Jazmin العلي , DO Primary Care Provider, Attending Pr ovider Active Team Status: Inactive Member Role Status Dates Jazmin العلي , DO Primary Care Provider Active Wilbur Watson DO Attending Provider Active Drug Regulatory Affairs Specialist Relationship Specialty Start Date End Date Jazmin العلي DO [address] [facility] [place] [address] PCP - General 08/20/99 Drug Regulatory Affairs Specialist Relationship Specialty Start Date End Date Jazmin العلي DO [address] [facility] [place] [address] PCP - General Internal Medicine 08/09/23 Drug Regulatory Affairs Specialist Relationship Specialty Start Date End Date Jazmin العلي DO [address] [place] [address] [place] [address] PCP - General Internal Medicine 08/09/23 Team [...] Attending Provider Active Start: 2023 End: 2023 Drug Regulatory Affairs Specialist Relationship Specialty Start Date End Date Jazmin العلي DO [address] [place] [address] [place] [address] PCP - General Internal Medicine 08/09/23 Debbie Mac MD [address] [place] [address] Consulting Physician Cardiology 09/10/23 Team Status: Inactive [...] Active Start: M ay [address] [facility] Other Provider Active Sta rt: January 18, [...] End: January 20, 2024 Cristiana Chapa , [facility] Other Provider Active Sta rt: January 18, 2024 End: January 20, 2024 Drug Regulatory Affairs Specialist Relationship Specialty Start Date End Date Jazmin العلي DO [address] [place] [address] PCP - General Internal Medicine 08/09/23 Debbie Mac MD 703 [facility] 2, [address] [place] [address] Consulting Physician Cardiology 09/10/23 Team Status: Active [...] Attending Provider Active Start: February 07, 2024 Drug Regulatory Affairs Specialist Relationship Specialty Start Date End Date Jazmin العلي DO [address] [place] [address] PCP - General Internal Medicine 08/09/23 Debbie Mac MD [facility], [address] [place] [address] Consulting Physician Cardiology 09/10/23 Maxwell Medrano MD 917 [facility] [address] [place] [address] Consulting Physician Cardiology 02/13/24 Team Status: Inactive [...] Active Start: July 01, 2024 Dee Quach BUSINESS 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 Other Provider Active Start : July 01, 2024 Bety Haile MD Other Provider Active Start: N ovember 2023 Anoop Zhang MD Other Provider Active Start: July 01, 2024 Isra Pedro MD Other Provider Active Start: N ov[address] [facility] Other Provider Active Sta rt: July 01, [...] Provider Active Start: N [address] [facility] Other Provider Active Sta rt: July 02, [...] July 09, 2024 End: July 09, 2024 Drug Regulatory Affairs Specialist Relationship Specialty Start Date End Date Jazmin العلي DO [address] [place] [address] PCP - General Internal Medicine 08/09/23 Debbie Mac MD [address] [place] [address] 2, [address] [address] Consulting Physician Cardiology 09/10/23 Maxwell Medrano MD [address] [address] Consulting Physician Cardiology 02/13/24 Drug Regulatory Affairs Specialist Relationship Specialty Start Date End Date Katie Yung MD [address] [place] [address] [place] [address] Physician Gastroenterology 07/26/24 Drug Regulatory Affairs Specialist Relationship Specialty Start Date End Date Jazmin العلي DO [address] [place] [address] PCP - General Internal Medicine 08/09/23 Debbie Mac MD [address] [place] [address], [address] [address] Consulting Physician Cardiology 09/10/23 Maxwell Medrano MD [address] [address] Consulting Physician Cardiology 02/13/24 Drug Regulatory Affairs Specialist Relationship Specialty Start Date End Date Jazmin العلي DO [address] [place] [address] PCP - General Internal Medicine 08/09/23 Debbie Mac MD [address] [place] [address] 2, [address] [address] Consulting Physician Cardiology 09/10/23 Maxwell Medrano MD [address] [place] [address] Consulting Physician Cardiology 02/13/24 Drug Regulatory Affairs Specialist Relationship Specialty Start Date End Date Jazmin العلي DO [address] [place] [address] PCP - General Internal Medicine 08/09/23 Debbie Mac MD [address] [place] [address] 2, [address] [address] Consulting Physician Cardiology 09/10/23 Maxwell Medrano MD [address] [place] [address] Consulting Physician Cardiology 02/13/24 Sasha Sepulveda RN Care Shuttle Final Inspector 03/28/24 Drug Regulatory Affairs Specialist Relationship Specialty Start Date End Date Jazmin العلي DO [address] [place] [address] PCP - General Internal Medicine 08/09/23 Debbie Mac MD [address] [place] [address] 2, [address] [address] Consulting Physician Cardiology 09/10/23 Maxwell Medrano MD [address] [place] [address] Consulting Physician Cardiology 02/13/24 Sasha Sepulveda, traffic division commanding officerShuttle Final Inspector 03/28/24 Drug Regulatory Affairs Specialist Relationship Specialty Start Date End Date Jazmin العلي DO [address] [place] [address] PCP - General Internal Medicine 08/09/23 Debbie Mac MD 703 [facility] 2, [address] [place] [address] Consulting Physician Cardiology 09/10/23 Maxwell Medrano MD [address] [place] [address] [address] [place] [address] Consulting Physician Cardiology 02/13/24 Sasha Sepulveda RN Care Shuttle Final Inspector 03/28/24 04/28/24 Drug Regulatory Affairs Specialist Relationship Specialty Start Date End Date Katie Yung MD [address] [place] [address] [place] [address] Physician Gastroenterology 07/26/24 Team Status: Active Member [...] July 21, 2024 End: July 24, 2024 Debbie Mac MD Other Provider Active St art: July 21, 2024 End: July 24, 2024 Kenny Porter MD Other Provider Active Start: July 21, 2024 End: July 24, 2024 Dee Quach APRN Other Provider Active Start : July 21, 2024 End: July 24, 2024 Bety Haile MD Other Provider Active Start: 2023 End: July 24, 2024 Anoop Zhang MD Other Provider Active Start: July 21, 2024 End: July 24, 2024 Isra Pedro MD Other Provider Active Start: 2023 End: July 24, 2024 Cristiana Chapa [employer]ARM MACHINERY SET UP MECHANIC[employer] Other Provider Active Sta rt: July 21, [...] August 27, 2024 End: August 27, 2024 Drug Regulatory Affairs Specialist Relationship Specialty Start Date End Date Jazmin العلي DO [address] [place] [address] PCP - General Internal Medicine 08/09/23 Debbie Mac MD 703 [facility] 2, [facility] [address] [place] [address] Consulting Physician Cardiology 09/10/23 Maxwell Medrano MD [address] [place] [address] Consulting Physician Cardiology 02/13/24 Team Status: Inactive Member Role Status Dates Jazmin العلي DO Primary Care Provider Active Start: September 05, 2024 End: September 05, 2024 Yesica Astudillo MD Attending Provider Active Start: September 05, 2024 End: September 05, 2024 Drug Regulatory Affairs Specialist Relationship Specialty Start Date End Date Jazmin العلي DO [address] [place] [address] PCP - General Internal Medicine 08/09/23 Debbie Mac MD 703 [facility] 2, [address] [address] Consulting Physician Cardiology 09/10/23 Maxwell Medrano MD [address] [place] [address] Consulting Physician Cardiology 02/13/24 Team Status: Inactive Member Role Status Dates Jazmin العلي DO Primary Care Provide r, Attending Provider Active Start: September 09, 2024 End: September 09, 2024 Team Status: Inactive Member Role Status Dates Jazmin العلي DO Primary Care Provide r, Attending Provider Active Start: September 11, 2024 End: September 11, 2024 Team Status: Inactive Member Role Status Dates Jazimn العلي DO Primary Care Provider Active Start: [...] October 06, 2024 End: October 06, 2024 Drug Regulatory Affairs Specialist Relationship Specialty Start Date End Date Katie Yung MD [address] [facility] [place] [place] [address] Physician Gastroenterology 07/26/24 Drug Regulatory Affairs Specialist Relationship Specialty Start Date End Date Katie Yung MD [address] [facility] [place] [address] Physician Gastroenterology 07/26/24 Drug Regulatory Affairs Specialist Relationship Specialty Start Date End Date Katie Yung MD [address] [facility] [place] [address] Physician Gastroenterology 07/26/24 Drug Regulatory Affairs Specialist Relationship Specialty Start Date End Date Katie Yung MD [address] [facility] [place] [place] [address] Physician Gastroenterology 07/26/24 Drug Regulatory Affairs Specialist Relationship Specialty Start Date End Date Katie Yung MD [address] [facility] [place] [place] [address] Physician Gastroenterology 07/26/24 Team Status: Inactive Member [...] January 22, 2025 End: January 23, 2025 Drug Regulatory Affairs Specialist Relationship Specialty Start Date End Date Jazmin العلي DO [address] [place] [address] PCP - General Internal Medicine 08/09/23 Debbie Mac MD 703 [facility] 2, [facility] [address] [place] [address] Consulting Physician Cardiology 09/10/23 Maxwell Medrano MD [address] [facility] [address] [place] [address] Consulting Physician Cardiology 02/13/24 Drug Regulatory Affairs Specialist Relationship Specialty Start Date End Date Jazmin العلي DO [address] [facility] [address] PCP - General Internal Medicine 02/14/23 Drug Regulatory Affairs Specialist Relationship Specialty Start Date End Date Jazmin العلي DO [address] [place] [address] PCP - General Internal Medicine 02/14/23 Drug Regulatory Affairs Specialist Relationship Specialty Start Date End Date Jazmin العلي DO [address] [place] [address] PCP - General Internal Medicine 02/14/23 Drug Regulatory Affairs Specialist Relationship Specialty Start Date End Date Jazmin العلي DO [address] [place] [address] PCP - General Internal Medicine 02/14/23 Drug Regulatory Affairs Specialist Relationship Specialty Start Date End Date Jazmin العلي DO [address] [place] [address] PCP - General Internal Medicine 08/09/23 Debbie Mac MD [address] [place] [address] [address] [place] [address] Consulting Physician Cardiology 09/10/23 Maxwell Medrano MD [address] [place] [address] [address] [place] [address] Consulting Physician Cardiology 02/13/24 Goals (unrecognized section [...] Procedures ECG 12 Lead Debbie Mac MD [address] [place] [address] 2, [address] [address] Referral ID Status Reason Start Date Expiration Date V isits Requested Visits Authorized [id number] Pending Review 05/31/2023 11/27/2023 1 1 Specialty Diagnoses / Procedures Referred By Ashtyn dobson Referred To Contact Cardiology Diagnoses Chronic diastolic heart failure (CMS/HCC) Essential hypertension, benign Dyspnea, unspecified type Procedures Transthoracic Echo (TTE) Complete UT ECHO TRANSTHORC R-T 2D W/WO M-MODE REC F-UP/LMTD UT DOP ECHOCARD COLOR FLOW VELOCITY MAPPING UT DOP ECHOCARD PULSE WAVE W/SPECTRAL F-UP/LMTD STD Debbie Mac MD [address] [place] [address] 2, [address] [address] [address] [place] [phone] Referral ID Status Reason Start Date Expiration Date Visits Requested Visits Authorized [id number] Authorized Perform Procedure 11/27/2023 1 1 Reason Comments Follow-up 4 month Specialty Diagnoses / Procedures Referred By Ashtyn dobson Referred To Contact Cardiology Diagnoses Persistent atrial fibrillation (CMS/HCC) 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) Chronic diastolic heart failure (CMS/HCC) Essential hypertension, benign Procedures Follow Up In Cardiology Debbie Mac MD 703 [facility] 2, [address] [place] [address] Referral ID Status Reason Start Date Expiration Date V isits Requested Visits Authorized [id number] Authorized 05/31/2023 11/27/2023 1 1 Reason Comments ekg visit Specialty Diagnoses / Procedures Referred By Contac t Referred To Contact Diagnoses Dyspnea, unspecified type Persistent atrial fibrillation (Multi) Procedures ECG 12 Lead Debbie Mac MD 703 [facility] 2, [address] [place] [address] Referral ID Status Reason Start Date Expiration Date V isits Requested Visits Authorized [id number] Authorized 01/17/2024 01/16/2025 1 1 Reason Comments [...] In Cardiology Maxwell Medrano MD [address] [address] Phone: tel: fax: Referral ID Status Reason Start Date Expiration Date V isits Requested Visits Authorized [id number] Authorized 04/28/2024 04/28/2025 1 1 Reason Onset [...] In Cardiology Cristiana Chapa APRN-NORAH [address] [address] Phone: tel: fax: Maxwell Medrano MD [address] [address] Phone: tel: fax: Referral ID Status Reason Start Date Expiration Date V isits Requested Visits Authorized [id number] Authorized 07/07/2024 07/07/2025 1 1 Reason Onset Date Comments Update 07/21/2024 Reason Onset Date Comments No Show 07/29/2024 Reason Comments Hospital Follow-up [facility] discharge 02/07-afib Specialty Diagnoses / Procedures Referred By Contac t Referred To Contact Diagnoses Persistent atrial fibrillation (Multi) Procedures ECG 12 Lead Debbie Mac MD [address] [place] [address] 2, [address] [address] Referral ID Status Reason Start Date Expiration Date V isits Requested Visits Authorized [id number] Authorized 02/25/2024 02/24/2025 1 1 Reason Comments Follow-up Specialty Diagnoses / Procedures Referred By Contac t Referred To Contact Diagnoses High risk medication use Procedures ECG 12 Lead Maxwell Medrano MD [address] [address] Referral ID Status Reason Start Date Expiration Date V isits Requested Visits Authorized [id number] Authorized 02/28/2024 02/27/2025 1 1 Reason Comments Hospital Follow-up [facility] 03/25/24 Specialty Diagnoses / Procedures Referred By Contac t Referred To Contact Diagnoses High risk medication use Procedures ECG 12 lead (Clinic Performed) Maxwell Medrano MD [address] [address] Referral ID Status Reason Start Date Expiration Date V isits Requested Visits Authorized [id number] Authorized 04/17/2024 04/17/2025 1 1 Reason Comments Follow-up 4 months Specialty Diagnoses / Procedures Referred By Contac t Referred To Contact Cardiology Diagnoses Essential hypertension, benign Procedures Follow Up In Cardiology Debbie Mac MD 703 [facility] 2, [address] [address] Debbie Mac MD 703 [facility] 2, [address] [address] Referral ID Status Reason Start Date Expiration Date V isits Requested Visits Authorized [id number] Authorized 11/28/2023 11/27/2024 1 1 Reason Comments Follow-up 2 WEEK Reason Comments Swallowing problems Reason Comments Follow-up [facility] Specialty Diagnoses / Procedures Referred By Contac t Referred To Contact Diagnoses Persistent atrial fibrillation (Multi) Procedures ECG 12 Lead Debbie Mac MD 703 [facility] 2, [facility] [address] [place] [address] Phone: tel: fax: Referral ID Status Reason Start Date Expiration Date V isits Requested Visits Authorized [id number] Authorized 09/05/2024 09/05/2025 1 1 Reason Comments [...] (Multi) Procedures ECG 12 Lead Cristiana Chapa, BUSINESS 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-PROPERTY INVESTOR [address] [facility] [address] [place] [address] Phone: tel: fax: Referral ID Status Reason Start Date Expiration Date V isits Requested Visits Authorized [id number] Authorized 02/23/2025 02/23/2026 1 1 Reason Onset [...] BE BASED ON THE PRIMARY CLINICAL RECORDS. [employer] [facility]. provides no warranty or guarantee of the accuracy or completeness of information in this document.
--- NOTE | 2025-05-03 11:02 | PM.HP ---
HPI H&P: HPI History of Present Illness Chief complaint: CHF Narrative: Mrs. Fermin is an 84-year-old female with a history of hypertension, atrial fibrillation, cardiac dysrhythmia for which she has a pacemaker. She is known to have LBBB. Patient came in with worsening shortness of breath and dyspnea on exertion over the last few days. No chest pain. No abdominal pain. No nausea or vomiting. Patient is feeling weak and fatigue. Unable to perform any activities without getting tired and needing to rest. No abdominal pain. No nausea or vomiting. Opioid HPI Opioid Management Most Recent Pain and Opioid Data: Last Pain Scale 3 10/20/24, 11:29 Last ORT Total Score 0 Today, 10:13 Last ORT Risk Category Low Risk Today, 10:13 Review of Systems ROS Status of ROS 10 or more systems reviewed and unremarkable except as noted in history and below [facility] Medical History (Updated 05/03/25 @ 11:05 by Maxwell Basurto MD) Chronic a-fib ?I48.20 - Chronic atrial fibrillation, unspecified (ICD-10) CHF (congestive heart failure) ?I50.9 - Heart failure, unspecified (ICD-10) Diastolic heart failure ?I50.30 - Unspecified diastolic (congestive) heart failure (ICD-10) Depression ?F32.A - Depression, unspecified (ICD-10) Diaphragmatic hernia ?K44.9 - Diaphragmatic hernia without obstruction or gangrene (ICD-10) Lumbar stenosis with neurogenic claudication ?M48.062 - Spinal stenosis, lumbar region with neurogenic claudication (ICD-10) Lumbar spondylosis ?M47.816 - Spondylosis without myelopathy or radiculopathy, lumbar region (ICD-10) Sacroiliitis ?M46.1 - Sacroiliitis, not elsewhere classified (ICD-10) S/P extracorporeal shock wave therapy ?Z98.890 - Other specified postprocedural states (ICD-10) Kidney stone ?N20.0 - Calculus of kidney (ICD-10) Low back pain ?M54.50 - Low back pain, unspecified (ICD-10) Neck pain ?M54.2 - Cervicalgia (ICD-10) Fibromyalgia ?M79.7 - Fibromyalgia (ICD-10) Hiatal hernia ?K44.9 - Diaphragmatic hernia without obstruction or gangrene (ICD-10) SOB (shortness of breath) ?R06.02 - Shortness of breath (ICD-10) High cholesterol ?E78.00 - Pure hypercholesterolemia, unspecified (ICD-10) Hypertension ?I10 - Essential (primary) hypertension (ICD-10) Surgical History Hx laparoscopic cholecystectomy ?Z90.49 - Acquired absence of other specified parts of digestive tract (ICD-10) S/P hernia repair ?Z98.890 - Other specified postprocedural states (ICD-10) ?Z87.19 - Personal history of other diseases of the digestive system (ICD-10) Family History (Updated 05/03/25 @ 10:42 by Loren Logan) Aunt Family history of cancer Father Family history of diabetes mellitus Family history of hypertension Family history of myocardial infarction Sister Family history of hypertension Social History (Updated 05/03/25 @ 10:42 by Loren Logan) Within the past year, how often did you have a drink containing alcohol: never Score interpretation: A score less than 3 is consistent with normal alcohol consumption. Smoking status: Never smoker Non-prescribed substance use: denies use Highest level of school completed/degree received: high school graduate Are you now , , , , never or living with a partner: In a typical week, how many times do you talk on the telephone with family, friends, or neighbors: 3 or more times per week How often do you get together with friends or relatives: 3 or more times per week How often do you attend scientologist or methodist services: 1-3 times per year Do you belong to any clubs or organizations such as scientologist groups unions, fraternal or athletic groups, or school groups: yes Total score: 2 Score interpretation: A score of greater than or equal to 2 indicates the lowest level of social isolation. Little interest or pleasure in doing things: not at all Feeling down, depressed, or hopeless: not at all Meds Home Medications and Allergies Home Medications ?Medication ?Instructions ?Recorded ?Confirmed ?Type acetaminophen 325 mg capsule 975 mg PO Q6H PRN pain 10/15/23 05/03/25 History (Tylenol) atorvastatin 40 mg tablet 40 mg PO .QHS 10/15/23 05/03/25 History ropinirole 1 mg tablet 1 mg PO .HS 10/15/23 05/03/25 History furosemide 20 mg tablet 20 mg PO .QD 02/07/24 05/03/25 History diltiazem HCl 180 mg 180 mg PO DAILY #30 caps 02/08/24 05/03/25 Rx capsule,extended release 24 hr amiodarone 200 mg tablet 200 mg PO Q12H 07/21/24 05/03/25 History bupropion HCl 300 mg 24 hr tablet, 300 mg PO QAM 07/21/24 05/03/25 History extended release calcium 600 mg (as 1 tab PO DAILY 07/21/24 05/03/25 History carbonate)-vitamin D3 20 mcg (800 unit) tablet cholecalciferol (vitamin D3) 25 25 mcg PO DAILY 07/21/24 05/03/25 History mcg (1,000 unit) capsule [id number]-[id number]-[id number] 1 tab PO QAM 07/21/24 05/03/25 History fumarate 18 mg-folic acid 400 mcg tablet (One-A-Day Women's Complete) duloxetine 30 mg capsule,delayed 30 mg PO DAILY 05/03/25 05/03/25 History release furosemide 40 mg tablet 40 mg PO DAILY 05/03/25 05/03/25 History metoprolol succinate 50 mg 50 mg PO DAILY 05/03/25 05/03/25 History tablet,extended release 24 hr rivaroxaban 20 mg tablet (Xarelto) 20 mg PO DAILY 05/03/25 05/03/25 History Allergies Allergy/AdvReac Type Severity Reaction Status Date / Time No Known Drug Allergies Allergy Verified 05/03/25 06:50 Exam Narrative Exam Narrative: [pt is awake and alert. oriented to place, time and person, patient is instructed in a frail appearance. Mildly tachypneic. HEENT: [place] conjunctiva and NL buccal mucosa Neck: Supple, no tenderness Endocrine: No Thyromegaly. Vascular: No JVD or carotid bruit. Lymphatic: No cervical lymphadenopathy. Chest: Bilateral crackles. Heart RRR, no extra sound or murmur. Abd: Soft, no tenderness, no rebound and no rigidity. Increase abd girth therefore clinically I could not exclude the possibility of intra abd mass or organomegaly. LE: No cyanosis or clubbing, no varices or edema. Muscle wasting and atrophy Neuro: A A O. Nl speech, comprehension and attention. Nl and symetrical motor and tone examination through out. []] Constitutional Vital Signs, click to edit/add: Last Vital Signs Temp 97.9 F 05/03/25 10:13 Pulse 92 H 05/03/25 10:13 Resp 18 05/03/25 10:13 BP 116/72 05/03/25 10:13 Pulse Ox 90 L 05/03/25 10:13 O2 Del Method Nasal Cannula 05/03/25 10:13 O2 Flow Rate 2 05/03/25 10:13 Results Labs Labs: Short CBC 05/03/25 Range/Units 07:32 WBC 12.9 H (4.0-11.0) 10^3/uL Hgb 13.1 (12.0-16.0) g/dL Hct 39.2 (36.0-48.0) % Plt Count 240 (150-450) 10^3/uL BMP 05/03/25 07:32 Sodium 140 Potassium 4.4 Chloride 105 Carbon Dioxide 21.7 BUN 24.0 H Creatinine 1.26 H Glucose 129 H Calcium 9.0 Assessment and Plan Assessment and Plan (1) Acute diastolic heart failure: (2) Acute hypoxic respiratory failure: (3) Paroxysmal A-fib: (4) CKD (chronic kidney disease): (5) Cachexia: (6) Frailty: (7) Muscle wasting: (8) Mild protein-calorie malnutrition: Plan Acute hypoxic respiratory failure Acute diastolic heart failure manifested by shortness of breath, dyspnea, hypoxemia and abnormal chest x-ray as well as elevated BNP. Echo was done in 2023 showed normal ejection fraction with minimal valvular disease. Repeat echocardiogram to rule out the possibility of new systolic dysfunction or worsening valvular disease. Gentle diuresis. Rate control Input and output measurement. I could not exclude other possible etiologies for her hypoxemia such as parenchymal lung disease. Less likely acute PE given the fact that patient is already on Xarelto and clear evidence of parenchymal lung disease on chest x-ray. Consider CT chest rule out pulmonary fibrosis, pulmonary nodule and/or malignancy Paroxysmal A-fib, cardiac dysrhythmia, patient has pacemaker, patient is scheduled for ablation. Elevated but flat troponin. Chronic LBBB Currently patient is in sinus rhythm. She is on combination of beta-leland and calcium leland as well as amiodarone and Xarelto. Continue telemetry monitoring. Patient denies any chest pain. Patient has a chronic LBBB Her troponin elevation is a flat and lower than previously noted. Her troponin before was a double or triple her troponin now Patient denies having any prior history of heart attack or having stent. I do not have any clinical evidence to suggest ACS or acute plaque rupture however I do suspect that patient has underlying CAD and may need to have ischemic evaluation. This could be done electively. Patient follows up with [facility] group. She sees Dr. Johnson at [facility] and Dr. Stafford at [facility]. Meanwhile continue Xarelto and beta-leland. Consider addition of a baby aspirin. CKD stage III At baseline Close monitoring of kidney function as we diurese her. Expect rise of creatinine. Acceptable rise for the sake of keeping her in euvolemic state Cachexia, frailty, muscle wasting, failure to thrive, mild protein calorie malnutrition. I started patient on protein oral supplementation. Patient may need to have investigation for weight loss including but not limited to cancer screening to be addressed by PCP in the outpatient setting. DVT prophylax Patient is already on Xarelto. Chronic medical conditions not listed above, incidental findings seen on labs and imaging. These would need to be addressed. Could be addressed when time and condition are appropriate. Could be addressed in the outpatient setting by PCP collaboration with other needed outpatient providers.
[2025-05-03] MEDS: AMIODARONE HCL 200 MG TABLET PO (11:49)
[2025-05-03] MEDS: ASPIRIN 81 MG TABLET.DR PO (11:49)
[2025-05-03] MEDS: ALBUMIN HUMAN 25 GM/100 ML PREMIX IV (11:49)
[2025-05-03] MEDS: ACETAMINOPHEN 325 MG TABLET 650 MG PO (12:25)
[2025-05-03] MEDS: PNEUMOC 20-VAL CONJ-DIP CRM/PF 0.5 ML SYRINGE IM (12:26)
[2025-05-03] MEDS: ROPINIROLE HCL 1 MG TABLET PO ×2 (13:06→21:35)
[2025-05-03] MEDS: ENSURE HP 237 ML LIQUID PO ×2 (13:06→21:36)
--- NOTE | 2025-05-03 13:20 | PC.NURSE ---
Nurse Loren RN at bedside pt alert and oriented and shaking in discomfort. C/o discomfort to hips and restless legs per pt and Loren RN.
[2025-05-03] MEDS: FUROSEMIDE 20 MG/2 ML VIAL IVP ×2 (14:47→21:35)
[2025-05-03] MEDS: DIGOXIN 500 MCG/2 ML AMPUL 250 MCG IV (14:47)
[2025-05-03] MEDS: DIGOXIN 500 MCG/2 ML AMPUL 125 MCG IV (19:58)
[2025-05-03] MEDS: ATORVASTATIN CALCIUM 40 MG TABLET PO (21:35)
[2025-05-04] VITALS (20 sets, daily range): BP systolic 94–148; BP diastolic 54–79; PULSE 63–103; TEMP 36.3–37.2; O2SAT 89–94
[2025-05-04 05:46] LABS: Hematocrit 39.5 % (36.0-48.0); Hemoglobin 12.8 g/dL (12.0-16.0); Mean Corpuscular HGB Conc 32.4 g/dL (29.9-35.2); Mean Corpuscular Hemoglobin 29.3 pg (26.7-34.0); Mean Corpuscular Volume 90.4 fL (81.0-99.0); Platelet Count 209 10^3/uL (150-450); Red Blood Count 4.37 10^6/uL (4.20-5.40); White Blood Count 9.8 10^3/uL (4.0-11.0)
[2025-05-04] MEDS: FUROSEMIDE 20 MG/2 ML VIAL IVP ×4 (05:51→23:34)
[2025-05-04 06:13] LABS: Alanine Aminotransferase 23 U/L (14-59); Albumin Globulin Ratio 1.0; Albumin Level 3.7 g/dL (3.4-5.0); Alkaline Phosphatase 92 U/L (46-116); Anion Gap 17.3; Aspartate Amino Transferase 27 U/L (15-37); Blood Urea Nitrogen 23.0 mg/dL (7.0-18.0); Calcium 9.2 mg/dL (8.5-10.1); Carbon Dioxide 23.2 mmol/L (21.0-32.0); Chloride 105 mmol/L (98-107); Estimated GFR (African America 55 (>=60 mL/min/1.73m^2); Estimated GFR (Non-African Ame 46 (>=60 mL/min/1.73m^2); Globulin 3.7 g/dL; Glucose 97 mg/dL (74-106); Potassium 3.5 mmol/L (3.5-5.1); Sodium 142 mmol/L (136-145); Total Protein 7.4 g/dL (6.4-8.2)
--- NOTE | 2025-05-04 08:20 | CM.NOTE ---
Rounds made with Dr. Basurto, discussed plan of care with pt. No discharge today, pt will have cardiac echo.
[2025-05-04 08:48] LABS: Glucose Urine UA NEGATIVE (NEGATIVE)
--- NOTE | 2025-05-04 08:50 | PM.PN ---
Progress Note: Subjective Subjective Interval history: Patient is feeling better today. Improvement of shortness of breath and anxiety associated with it. No chest pain Exam Narrative Exam Narrative: [pt is awake and alert. oriented to place, time and person, patient is instructed in a frail appearance. Mildly tachypneic. HEENT: [place] conjunctiva and NL buccal mucosa Neck: Supple, no tenderness Endocrine: No Thyromegaly. Vascular: No JVD or carotid bruit. Lymphatic: No cervical lymphadenopathy. Chest: Resolution bilateral crackles. Heart IRRR, no extra sound or murmur. Abd: Soft, no tenderness, no rebound and no rigidity. Increase abd girth therefore clinically I could not exclude the possibility of intra abd mass or organomegaly. LE: No cyanosis or clubbing, no varices or edema. Muscle wasting and atrophy Neuro: A A O. Nl speech, comprehension and attention. Nl and symetrical motor and tone examination through out. []] Constitutional Vital Signs, click to edit/add: Last Vital Signs Temp 97.4 F L 05/04/25 08:31 Pulse 87 05/04/25 08:31 Resp 18 05/04/25 08:31 BP 143/76 H 05/04/25 08:31 Pulse Ox 92 L 05/04/25 08:31 O2 Del Method Room Air 05/04/25 08:31 O2 Flow Rate 2 05/04/25 05:26 Progress Note: Objective Labs Labs: Short CBC 05/04/25 Range/Units 05:32 WBC 9.8 (4.0-11.0) 10^3/uL Hgb 12.8 (12.0-16.0) g/dL Hct 39.5 (36.0-48.0) % Plt Count 209 (150-450) 10^3/uL BMP 05/04/25 05:32 Sodium 142 Potassium 3.5 Chloride 105 Carbon Dioxide 23.2 BUN 23.0 H Creatinine 1.14 H Glucose 97 Calcium 9.2 Liver Function 05/04/25 Range/Units 05:32 Total Bilirubin 1.5 H (0.2-1.0) mg/dL AST 27 (15-37) U/L ALT 23 (14-59) U/L Alkaline Phosphatase 92 (46-116) U/L Albumin 3.7 (3.4-5.0) g/dL Progress Note: A&P Assessment and Plan (1) Acute diastolic heart failure: (2) Acute hypoxic respiratory failure: (3) Paroxysmal A-fib: (4) CKD (chronic kidney disease): (5) Cachexia: (6) Frailty: (7) Muscle wasting: (8) Mild protein-calorie malnutrition: Plan Acute hypoxic respiratory failure secondary to Acute diastolic heart failure manifested by shortness of breath, dyspnea, hypoxemia and abnormal chest x-ray as well as elevated BNP. Echo was done in 2023 showed normal ejection fraction with minimal valvular disease. Repeat echocardiogram to rule out the possibility of new systolic dysfunction or worsening valvular disease. Influenza A and B and COVID are negative. Gentle diuresis. Patient is 1.5 L negative balance. Rate control Input and output measurement. I could not exclude other possible etiologies for her hypoxemia such as parenchymal lung disease. Less likely acute PE given the fact that patient is already on Xarelto and clear evidence of parenchymal lung disease on chest x-ray. Consider CT chest rule out pulmonary fibrosis, pulmonary nodule and/or malignancy. We will hold off on CT imaging. Due to improvement of her respiratory status with diuresis. CT imaging of the chest could be done in the outpatient setting by PCP to rule out other pulmonary etiologies. Paroxysmal A-fib, cardiac dysrhythmia, patient has pacemaker, patient is scheduled for ablation. Elevated but flat troponin. Chronic LBBB Patient went in A-fib with RVR requiring the use of IV digoxin. Heart rate now is controlled around 80. She is on combination of beta-leland and calcium leland as well as amiodarone and Xarelto. Continue telemetry monitoring. Patient denies any chest pain. Patient has a chronic LBBB Her troponin elevation is a flat and lower than previously noted. Her troponin before was a double or triple her troponin now Patient denies having any prior history of heart attack or having stent. I do not have any clinical evidence to suggest ACS or acute plaque rupture however I do suspect that patient has underlying CAD and may need to have ischemic evaluation. This could be done electively. Patient follows up with [facility] group. She sees Dr. Johnson at [facility] and Dr. Stafford at [facility]. Meanwhile continue Xarelto and beta-leland. Consider addition of a baby aspirin. CKD stage III Kidney function improved from baseline. Likely caused by fluid removal Close monitoring of kidney function as we diurese her. Expect rise of creatinine. Acceptable rise for the sake of keeping her in euvolemic state Cachexia, frailty, muscle wasting, failure to thrive, mild protein calorie malnutrition. I started patient on protein oral supplementation. Patient may need to have investigation for weight loss including but not limited to cancer screening to be addressed by PCP in the outpatient setting. DVT prophylax Patient is already on Xarelto. Chronic medical conditions not listed above, incidental findings seen on labs and imaging. These would need to be addressed. Could be addressed when time and condition are appropriate. Could be addressed in the outpatient setting by PCP collaboration with other needed outpatient providers.
[2025-05-04 09:20] LABS: Crystals Seen? None Seen #/HPF (None Seen)
[2025-05-04 09:21] LABS: Cast Seen? NONE SEEN #/LPF (NONE SEEN); Urine Culture Indicated YES-FRMC
[2025-05-04] MEDS: DILTIAZEM HCL 120 MG CAP.ER.24H PO (09:40)
[2025-05-04] MEDS: BUPROPION HCL 150 MG XL TABLET 24H PO (09:41)
[2025-05-04] MEDS: POTASSIUM CHLORIDE 10 MEQ ER TABLET 20 MEQ PO ×2 (09:41→21:04)
[2025-05-04] MEDS: AMIODARONE HCL 200 MG TABLET PO ×2 (09:41→21:03)
[2025-05-04] MEDS: DULOXETINE HCL 30 MG CAPSULE.DR PO (09:41)
[2025-05-04] MEDS: METOPROLOL SUCCINATE 50 MG TAB.ER.24H PO (09:41)
[2025-05-04] MEDS: CALCIUM CARBONATE 600 MG/VITAMIN D3 400 IU TABLET 1 TAB PO (09:41)
[2025-05-04] MEDS: CHOLECALCIFEROL (VITAMIN D3) 25 MCG/1,000 UNITS TABLET PO (09:41)
[2025-05-04] MEDS: ASPIRIN 81 MG TABLET.DR PO (09:41)
--- NOTE | 2025-05-04 10:46 | PC.NURSE ---
patient was taking clindamycin at home for a small sore on her toe. Dr Basurto paged to see if this could be restarted. No orders received at this time
--- NOTE | 2025-05-04 10:56 | CA_ITS ---
Patient Name: AUSTIN GOLDEN MR#: [id number] : 1940 Exam Date: 05/04/2025 Ordering Doctor: KERWIN JUNE ECHOCARDIOGRAM REPORT PROCEDURE: CA ECHO DOPPLER COMPLETE INDICATIONS: CHF, pacemaker, atrial fibrillation, hypertension COMPARISON: None. DESCRIPTION: COMPLETE ECHOCARDIOGRAM Real-time transthoracic echocardiography with 2D, M-mode, spectral and color flow Doppler performed. QUALITY: Technical quality was good. LEFT VENTRICLE: Normal chamber size. Normal left ventricular wall thickness. LV EF: Global left ventricular systolic function is difficult to assess but appears preserved; visually estimated ejection fraction is 55 to 60%. Abnormal septal motion may be related to underlying paced rhythm. DIASTOLIC: Not adequately assessed due to heart rhythm. ATRIAL SEPTUM: Visually appears intact. LEFT ATRIUM: Severe dilatation. RIGHT ATRIUM: Mild dilatation. RIGHT VENTRICLE: Poorly seen. Appears normal chamber size. Unable to assess systolic function. Pacer wire present. TRICUSPID VALVE: Normal mobility and thickness. No stenosis with mild regurgitation. Doppler studies reveal mildly (35-45) elevated right-sided pressures. RVSP 39 mmHg MITRAL VALVE: Mildly thickened with normal mobility. Mild mitral annular calcification. Mild mitral regurgitation. AORTIC VALVE: Normal trileaflet appearance. Thickened aortic valve. Normal leaflet mobility. No evidence of aortic valve stenosis. No aortic regurgitation. AORTIC ROOT: Normal diameter and appearance. PULMONIC VALVE: Not well visualized. No stenosis. No regurgitation. PERICARDIUM: No evidence of pericardial effusion. IVC: Collapses with inspiration. CONCLUSION: 1. Global left ventricular systolic function is difficult to assess but appears preserved; visually estimated ejection fraction is 55 to 60% 2. The right ventricle is poorly seen; it appears normal in size 3. Biatrial dilatation 4. Mild tricuspid regurgitation 5. Mildly elevated right ventricular systolic pressure; RVSP 39 mmHg 6. Mild mitral regurgitation Adult Echocardiography Procedure Report Left Ventricle LVEDD (3.7 - 5.6 cm): 3.26 cm LVESD (2.2 - 4.0 cm): 2.35 cm LVIVS thickness (0.6 - 1.2 cm): 0.91 cm LVPW thickness (0.5 - 1.0 cm): 0.74 cm LVOT Max Gradient: 2.27 mm[Hg], 2.62 mm[Hg] LVOT Area (cm2): 0.78 m/s Peak Velocity (LVOT): 0.75 m/s, 0.81 m/s LVOT Diameter 2.03 cm Left Atrium LA Volume Index (2D A2C): 59.33 ml/m2 Left Atrium Systolic Dimension: 4.39 cm Mitral Valve Mitral Valve E-Wave Peak Velocity: 1.15 m/s Right Ventricle Aorta AO Root Diam: 2.42 cm Aortic Valve AoV Area (Peak Kavon): 1.97 cm2, 1.84 cm2, 2.12 cm2 Peak Velocity(Antegrade Flow): 1.33 m/s, 1.23 m/s Peak Gradient(Antegrade Flow): 7.03 mm[Hg], 6.09 mm[Hg] Tricuspid Valve Peak Velocity (Regurgitant Flow): 3.06 m/s, 3.29 m/s, 2.64 m/s Pulmonic Valve Peak Velocity: 0.90 m/s Peak Gradient: 2.94 mm[Hg], 2.98 mm[Hg], 3.26 mm[Hg], 3.92 mm[Hg] Right Atrium Right Atrium Systolic Pressure: 46.89 ml, 46.89 ml Dictated by: Nam Razo M.D. on 05/05/2025 at 16:05 Approved by: Nam Razo M.D. on 05/05/2025 at 16:08
--- NOTE | 2025-05-04 13:34 | SWNOTE1 ---
Important Message from [employer] reviewed and discussed with patient. Pt. verbalized understanding and signed the form. Original given to patient and copy placed in patient?s chart.
--- NOTE | 2025-05-04 13:35 | SWNOTE1 ---
SW met with pt to discuss dc needs. Pt lives at the [facility] at the [address]. Pt has a walker, but only uses when she is feeling weak. Pt has friends/family close by if needed. Pt does not have any services coming in at this time. At this time pt denies any discharge needs. SW to follow as needed.
[2025-05-04] MEDS: ACETAMINOPHEN 325 MG TABLET 650 MG PO (17:45)
[2025-05-04] MEDS: RIVAROXABAN 10 MG TABLET 20 MG PO (17:45)
[2025-05-04] MEDS: ENSURE HP 237 ML LIQUID PO (21:03)
[2025-05-04] MEDS: ATORVASTATIN CALCIUM 40 MG TABLET PO (21:03)
[2025-05-04] MEDS: ROPINIROLE HCL 1 MG TABLET PO (21:04)
[2025-05-05] VITALS (10 sets, daily range): BP systolic 119–135; BP diastolic 71–77; PULSE 70–85; TEMP 36.6–36.8; O2SAT 91–95
[2025-05-05] MEDS: FUROSEMIDE 20 MG/2 ML VIAL IVP (05:37)
[2025-05-05 06:14] LABS: Anion Gap 14.2; Blood Urea Nitrogen 31.0 mg/dL (7.0-18.0); Calcium 9.0 mg/dL (8.5-10.1); Carbon Dioxide 27.2 mmol/L (21.0-32.0); Chloride 104 mmol/L (98-107); Estimated GFR (African America 41 (>=60 mL/min/1.73m^2); Estimated GFR (Non-African Ame 34 (>=60 mL/min/1.73m^2); Glucose 107 mg/dL (74-106); NT Pro B Type Natriuretic Pept 1324.0 pg/mL (<=1800.0); Potassium 4.4 mmol/L (3.5-5.1); Sodium 141 mmol/L (136-145)
--- NOTE | 2025-05-05 08:00 | XR_ITS ---
The [address] [address] Patient Name: AUSTIN GOLDEN MRN: [id number] date: 1940 Sex: F Assigned Patient Location: [place] Current Patient Location: [place] Accession/Order Number: [id number] Exam Date: 05/05/2025 06:17 Report Date: 05/05/2025 10:01 At the request of: KERWIN JUNE MD Procedure: XR chest 1V PORTABLE AP ERECT CHEST 0558 hours CLINICAL HISTORY: Follow-up CHF, comparison to last COMPARISON: 05/03/2025 A left-sided pacemaker is again noted. The cardiac and mediastinal contours are similar. No residual vascular congestion is seen. There is possible minor basilar atelectasis or scarring on the left. No focal consolidation, sizable effusion or pneumothorax is seen. The osseous structures are intact. XR/XR chest 1V IMPRESSION: CONTINUED MILD CARDIOMEGALY. RESOLUTION OF FAILURE. Impression dictated by: Rach Tong M.D. 05/05/2025 10:01 AM Dictation [facility] Electronically authenticated by: [id number] Y Date: 05/05/2025 10:01
[2025-05-05] MEDS: DULOXETINE HCL 30 MG CAPSULE.DR PO (08:28)
[2025-05-05] MEDS: ENSURE HP 237 ML LIQUID PO (08:28)
[2025-05-05] MEDS: ACETAMINOPHEN 325 MG TABLET 650 MG PO (08:28)
[2025-05-05] MEDS: CHOLECALCIFEROL (VITAMIN D3) 25 MCG/1,000 UNITS TABLET PO (08:28)
[2025-05-05] MEDS: DILTIAZEM HCL 120 MG CAP.ER.24H PO (08:28)
[2025-05-05] MEDS: CALCIUM CARBONATE 600 MG/VITAMIN D3 400 IU TABLET 1 TAB PO (08:29)
[2025-05-05] MEDS: ASPIRIN 81 MG TABLET.DR PO (08:29)
[2025-05-05] MEDS: BUPROPION HCL 150 MG XL TABLET 24H PO (08:29)
[2025-05-05] MEDS: AMIODARONE HCL 200 MG TABLET PO (08:29)
[2025-05-05] MEDS: METOPROLOL SUCCINATE 50 MG TAB.ER.24H PO (08:29)
--- NOTE | 2025-05-05 09:20 | CM.NOTE ---
Rounds made with Dr. Basurto, pt will discharge to home today and f/u with PCP. CM will call cardiology for echo report. 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
--- NOTE | 2025-05-05 10:13 | CM.NOTE ---
Arabella from Cardiology clinic will send message for echo to be read, pt pending D/C.
--- NOTE | 2025-05-05 11:35 | PM.DS1 ---
DS: Providers Provider Date of admission: 05/03/25 09:58 Primary care physician: Chester Mehta DO DS: Diagnosis Discharge Diagnosis (1) Acute diastolic heart failure: (2) Acute hypoxic respiratory failure: (3) Paroxysmal A-fib: (4) CKD (chronic kidney disease): (5) Cachexia: (6) Frailty: (7) Muscle wasting: (8) Mild protein-calorie malnutrition: Plan As listed above, below and others that are not listed DS: Summary Hospital Course Hospital Course: Mrs. Fermin is an 84-year-old female who came in with shortness of breath. She was found to have hypoxemia. In addition she was found to have the following: Acute hypoxic respiratory failure secondary to Acute diastolic heart failure manifested by shortness of breath, dyspnea, hypoxemia and abnormal chest x-ray as well as elevated BNP. Echo was done in 2023 showed normal ejection fraction with minimal valvular disease. Repeat echocardiogram to rule out the possibility of new systolic dysfunction or worsening valvular disease. Repeat echo is still pending. Influenza A and B and COVID are negative. Gentle diuresis. Patient is 3 L negative balance. Rate control I suspect that her acute diastolic heart failure is secondary to mild tachycardia on presentation. That was corrected. Follow-up BMP showed significant reduction of the BNP level. Follow-up chest x-ray showed resolution of interstitial edema. Home O2 evaluation will be completed. I could not exclude other possible etiologies for her hypoxemia such as parenchymal lung disease. Less likely acute PE given the fact that patient is already on Xarelto and clear evidence of parenchymal lung disease on chest x-ray. Consider CT chest rule out pulmonary fibrosis, pulmonary nodule and/or malignancy. We will hold off on CT imaging. Due to improvement of her respiratory status with diuresis. CT imaging of the chest could be done in the outpatient setting by PCP to rule out other pulmonary etiologies to be addressed by PCP. Urinary tract infection Cultures pending. I will discharge patient on cefuroxime 250 twice daily for 5 days Paroxysmal A-fib, cardiac dysrhythmia, patient has pacemaker, patient is scheduled for ablation. Elevated but flat troponin. Chronic LBBB Patient went in A-fib with RVR requiring the use of IV digoxin. Heart rate now is controlled around 80. She is on combination of beta-leland and calcium leland as well as amiodarone and Xarelto. Continue telemetry monitoring. Patient denies any chest pain. Patient has a chronic LBBB Her troponin elevation is a flat and lower than previously noted. Her troponin before was a double or triple her troponin now Patient denies having any prior history of heart attack or having stent. I do not have any clinical evidence to suggest ACS or acute plaque rupture however I do suspect that patient has underlying CAD and may need to have ischemic evaluation. This could be done electively. Patient follows up with [facility]. She sees Dr. Johnson at [facility] and Dr. Stafford at [facility]. Meanwhile continue Xarelto and beta-leland. Consider addition of a baby aspirin. CKD stage III Kidney function improved from baseline. Likely caused by fluid removal Close monitoring of kidney function as we diurese her. Expect rise of creatinine. Acceptable rise for the sake of keeping her in euvolemic state Cachexia, frailty, muscle wasting, failure to thrive, mild protein calorie malnutrition. I started patient on protein oral supplementation. Patient is to continue to drink oral protein supplementation, Ensure, boost twice a day Patient may need to have investigation for weight loss including but not limited to cancer screening to be addressed by PCP in the outpatient setting. DVT prophylax Patient is already on Xarelto. Chronic medical conditions not listed above, incidental findings seen on labs and imaging. These would need to be addressed. Could be addressed when time and condition are appropriate. Could be addressed in the outpatient setting by PCP collaboration with other needed outpatient providers. Patient has multiple complex medical issues as listed above and others that are not listed. All appear to be stable. Patient is feeling great. Significant risk duction of a BNP level. Resolution of interstitial edema on chest x-ray. I do not have any clear or strong clinical justification to extend inpatient hospitalization. Patient however will require close and frequent monitoring as well as additional work-up, investigation and therapeutic intervention that could take place from this point on post discharge. That is to prevent relapse, decompensation, rehospitalization and other medical implications. I instructed patient to ask her primary care doctor to obtain [facility] record entirely to address abnormalities seen on labs and imaging that I have and have not addressed during this hospitalization, follow-up on pending blood work, imaging and pathology is if available and to follow-up on needed medical care in the outpatient setting. Time Spent with Patient Time attestation: Total time spent providing and/or coordinating discharge services: Exam Narrative Exam Narrative: [pt is awake and alert. oriented to place, time and person, patient is instructed in a frail appearance. Mildly tachypneic. HEENT: [place] conjunctiva and NL buccal mucosa Neck: Supple, no tenderness Endocrine: No Thyromegaly. Vascular: No JVD or carotid bruit. Lymphatic: No cervical lymphadenopathy. Chest: Resolution bilateral crackles. Heart IRRR, no extra sound or murmur. Abd: Soft, no tenderness, no rebound and no rigidity. Increase abd girth therefore clinically I could not exclude the possibility of intra abd mass or organomegaly. LE: No cyanosis or clubbing, no varices or edema. Muscle wasting and atrophy Neuro: A A O. Nl speech, comprehension and attention. Nl and symetrical motor and tone examination through out. []] Constitutional Vital Signs, click to edit/add: Last Vital Signs Temp 98.2 F 05/05/25 07:25 Pulse 80 05/05/25 10:00 Resp 18 05/05/25 07:25 BP 135/71 05/05/25 07:25 Pulse Ox 92 L 05/05/25 08:19 O2 Del Method Room Air 05/05/25 08:19 O2 Flow Rate 2 05/04/25 05:26 DS: Data Data Completed and Pending Labs on day of discharge: Labs from last 24 hours 05/05/25 05:33 Sodium 141 Potassium 4.4 Chloride 104 Carbon Dioxide 27.2 Anion Gap 14.2 BUN 31.0 H Creatinine 1.48 H Est GFR ( Amer) 41 L Est GFR (Non-Af Amer) 34 L BUN/Creatinine Ratio 20.9 Glucose 107 H Calcium 9.0 NT-Pro-B Natriuret Pep 1324.0 Preliminary micro results at discharge 05/04/25 08:35 Urine Culture - Preliminary Urine,Clean Catch Pending - Specimen sent to [facility] Discharge Plan Discharge Disposition: Home, Self-Care Condition: Fair Discharge Medications: New acetaminophen [Tylenol] 325 mg Tablet 650 mg PO Q6H PRN (Reason: pain or fever) Qty: 0 0RF aspirin 81 mg Tablet,Delayed Release (Dr/Ec) 81 mg PO QD Qty: 30 2RF cefuroxime axetil 250 mg tablet 250 mg PO BID 5 Days Qty: 10 0RF potassium chloride 10 mEq tablet extended release 10 meq PO DAILY Qty: 30 1RF Continued atorvastatin 40 mg tablet 40 mg PO .QHS Patient Comments: takes at 6 pm ropinirole 1 mg tablet 1 mg PO .HS diltiazem HCl 180 mg capsule,extended release 24hr 180 mg PO DAILY Qty: 30 0RF amiodarone 200 mg tablet 200 mg PO .QD calcium carbonate-vitamin D3 600 mg-20 mcg (800 unit) tablet 1 tab PO DAILY cholecalciferol (vitamin D3) 25 mcg (1,000 unit) capsule 25 mcg PO DAILY One-A-Day Women's Complete 18 mg iron- 400 mcg tablet 1 tab PO QAM metoprolol succinate 50 mg tablet extended release 24 hr 50 mg PO DAILY duloxetine 30 mg capsule,delayed release(DR/EC) 30 mg PO DAILY Xarelto 20 mg tablet 20 mg PO DAILY furosemide 40 mg tablet 40 mg PO .QD Discontinued acetaminophen [Tylenol] 325 mg capsule 975 mg PO Q6H PRN (Reason: pain) Activity: resume usual activities as tolerated Diet: advance to your usual diet Print Language: Ugandan Patient Instructions: Cefuroxime (By mouth), Potassium Chloride (By mouth), Aspirin (By mouth), Heart Failure (DC) Activity Restrictions/Additional Instructions: I may not have addressed or treated all of your medical illnesses or the abnormal blood work or imaging studies during this hospitalization. Please ask your primary care provider to obtain [facility] records entirely to follow up on all of the abnormal physical, laboratory, and imaging findings that I have not addressed. Please return back to the emergency room or seek medical attention if your symptoms worsen or return. Please follow-up with your primary care doctor, Dr. Hernández and Dr. Stafford Discharging you from [facility] does not mean that your medical care ends here and now. You may still need additional monitoring, work up, investigation, and treatment plan to be handled from this point on by out patient providers including your primary care provider and specialists. For any medication question, please contact your retail pharmacist or your primary care provider. Thank you. Forms: Portal Instructions Follow Up Appointments: Follow up with Dr Mehta Laurie, May 12 at 11:45AM ([phone]) Appt with Dr Jose McarthurMay 26 at 2:40PM ([phone])
--- NOTE | 2025-05-06 13:18 | CM.NOTE ---
Kirill txt Dr. Basurto final culture result.
--- NOTE | 2025-05-06 15:55 | CM.DCFOLLOWU ---
1st attempt 05/06/25, no answer
--- NOTE | 2025-05-07 14:37 | CM.DCFOLLOWU ---
Person spoke with: patient How are you feeling? well How is your pain?none Did you understand your discharge instructions? yes Do you have any questions about your discharge instructions? no Were you given any prescriptions at discharge? yes Were you able to get your prescriptions filled?yes Do you understand how to take your medications as ordered?yes Do you have any questions about your follow up appointment and do you plan to keep your follow up appointment? no questions, follow ups reviewed and no questions Is there anything else that you would like to discuss? no Questions/Comments/Concerns/Other: none
== END 2025-05-05 12:22 | disposition home or self-care (01) | DRG 291 ==
LOC: ER 08:58 → MS 10:04
PROVIDERS: Internal Medicine; Admitting Provider Internal Medicine; Emergency Provider Emergency Medicine; PCP Internal Medicine; Visit Provider Internal Medicine
DX: I13.0 Hypertensive heart and chronic kidney disease with heart failure and stage 1 through stage 4 chronic kidney disease, or unspecified chronic kidney disease (principal); I50.31 Acute diastolic (congestive) heart failure; J96.01 Acute respiratory failure with hypoxia; R64 Cachexia; E44.1 Mild protein-calorie malnutrition; N39.0 Urinary tract infection, site not specified; N18.30 Chronic kidney disease, stage 3 unspecified; R48.0 Dyslexia and alexia; Z95.0 Presence of cardiac pacemaker; I44.7 Left bundle-branch block, unspecified; R54 Age-related physical debility; Z79.01 Long term (current) use of anticoagulants; Z79.899 Other long term (current) drug therapy; E78.00 Pure hypercholesterolemia, unspecified; M79.7 Fibromyalgia; K44.9 Diaphragmatic hernia without obstruction or gangrene; Z87.442 Personal history of urinary calculi; Z90.49 Acquired absence of other specified parts of digestive tract; M47.816 Spondylosis without myelopathy or radiculopathy, lumbar region; M48.062 Spinal stenosis, lumbar region with neurogenic claudication; F32.A Depression, unspecified; R00.0 Tachycardia, unspecified; M62.50 Muscle wasting and atrophy, not elsewhere classified, unspecified site; I25.10 Atherosclerotic heart disease of native coronary artery without angina pectoris; R62.7 Adult failure to thrive; Z68.27 Body mass index [BMI] 27.0-27.9, adult
CPT/HCPCS: 36415; 71045; 80048; 80053; 81001; 83880; 84484; 85025; 85027; 87086; 87088; 87186; 87804; 87811; 90677; 93005; 93306; 94761; 96374; 96375; 99285; J1160; J1938; J3360; P9046

== ENCOUNTER 2025-05-22 16:08 | Outpatient (OUT) | payer OTHER, SELFPAY ==
--- OUTSIDE RECORDS SUMMARY | 2025-05-22 16:23 | XMS_ITS | CCD ---
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 Name Role Phone JAZMIN العلي Primary Care Unavailable JELANI SORIA Attending Unavailable VIDAL SORIAF Admitting Unavailable SELF, REFERRED Referring Unavailable [place] Procedure Practitioner Unavailab SANJUANA Maier AM Surgeon Unavailable TANNER HERRERA Surgeon Unavailable [place] Procedure Practitioner Unavailab JELANI Eid Surgeon Unavailable [place] Procedure Practitioner Unavailab Jazmin Buckley E Unavailable [...] Attending Provider DO Luis Lennon Emergency Provider [phone] DO Jay Ceja Admit Provider DO Jay Ceja Attending Provider [phone] MD Anival Easton Attending Provider DO Jazmin العلي Primary Care Provider MD Debbie Mac Attending Provider VINCENT Rolon Emergency Provider [phone] DO Jay Ceja Attending Provider ROSA Bennett Other Provider Unavailable DO Javed Dee Other Provider MD Jimena Smith Other Provider MD Christopher Richardson Other Provider MD Debbie Mac Referring Provider MD Kenny Porter Other Provider VIRGINIA Brooke Other Provider MD Bety Haile Other Provider MD Vicente [facility] Other Provider MD Isra Pedro Other Provider Eduard [facility] Cristiana Rosen Other Provider MD Yessy Ackerman Other Provider DO Katie Dukes Attending Provider Jazmin العلي Unavailable DO Jazmin العلي Primary Care Provider DO Luis Lennon Emergency Provider Unavailab DO Jay Milligan Admit Provider MD Anival Easton Attending Provider [phone] VINCENT Rolon Emergency Provider ROSA Bennett Other Provider Unavailable DO Javed Dee Other Provider MD Jimena Smith Other Provider MD Christopher Richardson Other Provider MD Debbie Mac Referring Provider MD Kenny Porter Other Provider VIRGINIA Brooke Other Provider MD Bety Haile Other Provider MD Anoop Zhang Other Provider MD Isra Pedro Other Provider Eduard [facility] Cristiana Rosen Other Provider MD Yessy Ackerman Other Provider [phone] DO Katie Dukes Attending Provider Tyson, DO Briggs Attending Provider Rachel Larios Unavailable DO Wilbur Watson Attending Provider DO Jazmin العلي Primary Care Provider [phone] DO Jay Ceja Admit Provider MD Debbie Mac Attending Provider Tyson, Dr. Jazmin Sanders Referring Aleshia العلي, Dr. Jazmin Sanders Primary Care Aleshia Chacon, Dr. French Carrillo Attending Un available BALL, DR BRIGGS Primary Care Unavailable MARKER ., DR MCMANUS Admitting Unavailable MARKER ., DR MCMANUS Attending Unavailable MARKER ., DR MCMANUS Consulting Unavailable UNLU, LUCIEN Consulting Unavailable JADE, DR Wolf Dyson Admitting Unavailable BALL, DR BRIGGS Primary Care Unavailable JADE, DR Wolf Dyson Attending Unavailable JADE, DR Wolf Dyson Consulting Unavailable KAREEM, DR HARDY Pisano Consulting Unavailable BALL, DR BRIGGS Admitting Unavailable BALL, DR BRIGGS Attending Unavailable BALL, DR BRIGSG Consulting Unavailable BALL, DR BRIGGS Primary Care [...] Unavailable BALL, DR BRIGGS Primary Care Unavailable JADE, DR Wolf Dyson Admitting Unavailable JADE, DR Wolf Dyson Attending Unavailable JADE, DR Wolf Dyson Consulting Unavailable POLICARO, FARRAH Consulting Unavailable LARIOS, DR RACHEL Hahn Admitting Unavailable BALL, DR BRIGGS Primary Care Unavailable LARIOS, DR RACHEL Hahn Attending Unavailable HARRIET, DR RACHEL Hahn Consulting Unavailable Tyson DO Briggs Primary Care Provider DO Wilbur Watson Attending Provider Tyson DO Briggs Primary Care Provider MD Debbie Mac Attending Provider Tyson Jazmin MORENO Smyrna Primary Care Provider Negin Garcia Unavailable Tyson Jazmin Smyrna Primary Care Provider Tyson DO Briggs Primary Care Provider MD Debbie Mac Attending Provider Jazmin العلي DO Primary Care Provider Debbie Mac MD Unavailable Tyson DO Briggs Primary Care Provider [phone] MD Debbie Mac Attending Provider MD Yesica Astudillo Attending Provider MD Christopher Richardson Attending Provider Tyson Jazmin Primary Care Provider VINCENT Mendez Emergency Provider [phone] MD Izzy Capps Admit Provider MD Izzy Capps Attending Provider ROSA Bennett Other Provider Unavailable DO Javed Dee Other Provider MD Jimena Smith Other Provider MD Christopher Richardson Other Provider MD Debbie Mac Other Provider MD Kenny Porter Other Provider VIRGINIA Quach Other Provider MD Bety Haile Other Provider MD Anoop Zhang Other Provider MD Isra Pedro Other Provider Eduard [facility] Cristiana Rosen Other Provider Jazmin [...] Provider Vanessa KAUR, Vic Pritchard Emergency Provider [phone] Jossy MUIR, Shilpa Admit Provider Shilpa Fenton [...] Isra Pedro MD Other Provider Eduard [facility], Cristiana Rosen Other Provider Wilda MUIR, Andrius Attending Provider Jazmin العلي DO Attending Provider Gracia Craig DO Emergency Provider Jazmin العلي DO Primary Care Provider [phone] Jimena Smith MD Other Provider Gialisonraabdoul MUIR, [...] EL Referring Unavailable KATIE YUNG Attending Unavailable KATIE UYNG Admitting Unavailable Jazmin العلي DO Primary Care Provider Maggie Rod MD Emergency Provider Ángel Minaya MD Admit Provider Ángel Minaya MD Attending Provider Fahad Kim DO Attending Provider Tyson DO, Jazmin E Primary Care Provider MEDRANO, MAXWELL N Attending Unavailable MEDRANO, MAXWELL N Referring Unavailable BALL, JAZMIN E Primary Care Unavailable EDUARDCRISTIANA JIMENEZ Attending Unavailable MEDRANO, MAXWELL N Referring Unavailable BALL, JAZMIN E Primary Care Unavailable MEDRANO, MAXWELL N Attending Unavailable CRISTIANA CHAPA Referring Unavailable BALL, JAZMIN E Primary Care Unavailable DEBBIE MAC Attending Unavailable BALL, JAZMIN E Primary Care Unavailable MEDRANO, MAXWELL N Attending Unavailable BALL, JAZMIN E Primary Care Unavailable CRISTIANA CHAPA Attending Unavailable BALL, JAZMIN E Primary Care Unavailable Ball DO, Jazmin Primary Care Provider [phone] Juanito Barragan DO Attending Provider [phone] Maxwell Basurto MD Attending Provider MEDRANO, MAXWELL N Referring Unavailable BALL, JAZMIN [...] Unavailable BALL, JAZMIN E Primary Care Unavailable Ball, Jazmin Primary Care Unavailable Fahad Kim Attending Unavailable Asaad, Imad Consulting Unavailable Aroldo Peña Admitting Unavailable Stephanie Bennett Consulting Unavailable Javed Dee Consulting Unavailable Sarah, Jimena Consulting Unavailable Christopher Richardson Consulting Unavail able Debbie Mac Consulting Unavailable Kenny Porter Consulting Unavailab Dee Jacobs Consulting Unavailable Bety Haile Consulting Unavailable Anoop Zhang Consulting Unavailab Isra Lutz Consulting Unavailable Cristiana Chapa Consulting Unavailable Maxwell Basurto Attending Unavailable Massouh, Rafik Admitting Unavailable Tyson, Jazmin Primary Care Unavailable Giedraitis, Andrius Attending Unavailable Giedraitis, Andrius Admitting Unavailable Tyson, Jazmin Admitting Unavailable Tyson, Jazmin Primary Care Unavailable Tyson, Jazmin Attending Unavailable Tyson, Jazmin Primary Care Unavailable Gracia Craig L Admitting Unavailable RiceGracia L Attending Unavailable Yarelichljoyce, Stephanie Consulting Unavailable Jazmin العلي Primary Care Unavailable Fahad Kim Attending Unavailable Ángel Minaya Admitting Unavailable Sabrina, Stephanie Consulting Unavailable Javed Dee Consulting Unavailable Smith, Hess Consulting Unavailable Christopher Richardson Consulting Unavail able Ivy Macf Consulting Unavailable Kenny Porter Consulting Unavailab Dee Jacobs Consulting Unavailable Haile, Bety Consulting Unavailable Vicente, Anoop Najeeb Consulting Unavailab shant Pedro, Tarek Consulting Unavailable Cristiana Chapa Consulting Unavailable Yarelichljoyce, Stephanie Consulting Unavailable Smith, Hess Referring Unavailable Shilpa Fenton Attending Unavailable Tyson, Jazmin Primary Care Unavailable Eduarskjessee Shilpa Admitting Unavailable Jaevd Dee Consulting Unavailable Smith, Hess Consulting Unavailable Christopher Richardson Consulting Unavail able Trabnuria, Ivyf Consulting Unavailable Kenny Porter Consulting UnavailDee Dennison Consulting Unavailable Haile, Bety Consulting Unavailable Vicente, Anoop Najeeb Consulting Unavailab shant Pedro, Tarek Consulting Unavailable Eduard, Cristiana L Consulting Unavailable JOSEPH SEPULVEDA Attending Unavailable JOSEPH SEPULVEDA Attending Unavailable JOSEPH SEPULVEDA Attending Unavailable Sasha Rios CMA Attending Provider UnavailJazmin Stevenson DO Attending Provider [phone] Allergies Allergy Classification Reported Allergen(s) Allergy Type Date of Onset Reaction(s) Facility (1 source) apixaban Drug Allergy 07-26-20 20 [facility] Repository (20 sources) Sulfonamides (Antibiotic); Translations: [SULFA (SULFONAMIDE ANTIBIOTICS)] Drug allergy (disorder) 07-29-20 13 Itching [facility] Repository (20 sources) Sulfonamides (Antibiotic); Translations: [Sulfa Drugs] Allergy to drug (finding) [place] [phone] DO Work Phone: (20 sources) fentaNYL; Translations: [fentanyl] Drug Allergy 08-22-19 22 Other [facility] (20 sources) Sulfonamides (Antibiotic) Propensity to adverse reactions Unknown [employer] Other (1 source) fentaNYL Drug Allergy 08-06-20 20 [facility] Repository (1 source) patient allergy list reviewed by nurse or physicia Propensity to adverse reactions 04-15-20 19 Comment:Done [employer] Other (20 sources) Substance with sulfonamide structure and antibacterial mechanism of action (substance) Drug allergy 02-20-20 23 Unknown [employer] Other Medications Current Medications Medication Drug Class(es) Dates Sig (Normalized) Sig (Original) acetaminophen 325 mg oral tablet (20 sources) Start: 12-08-2024 End: 12-08-2024 650 mg, Oral, PACU ONCE PRN, Starting on Sun12/08/24 at 1002, Until Sun12/08/24 at 1601, Mild Pain (pain score 1,2,3), PACU Now Start: 04-01-2024 take 1 capsule by mo [facility] every six hours as needed for pain Acetaminophen 325 mg capsule Active 325 MG PO Every 6 hours as needed for fever or pain April 01, 2024 12:00am Complies with drug therapy Start: 11-20-2022 End: 11-24-2023 take 1 tablet [...] sources) Opioid Agonist Start: 11-24-2023 HYDROcodone-ac etaminophen (Thrall) 10-325 MG tablet 1 tablet 11/24/2023 Active [...] 2021 12:29pm Start: 04-11-2021 End: 07-03-2021 take [id number] tablet by mouth once daily Amiodarone 200 [...] mg tablet Discontinued 100 MG PO Daily December 16, 2020 12:00am March 18, 2021 12:03pm Start: 12-14-2020 End: 12-02-2024 take 1 tablet by mouth once daily Amiodarone 200 mg tablet Discontinued 200 MG PO Daily May 08, 2024 12:00am July 03, 2024 2:49pm atorvastatin 40 mg oral tablet (20 sources) HMG-CoA Reductase Inhibitor Start: 04-08-2025 take 1 tablet by mouth once daily in the evening Atorvastatin 40 mg tablet Active 0 .ROUTE .COMPLEX April 08, 2025 7:48am TAKE 1 TABLET BY MOUTH EVERY DAY IN THE EVENING Complies with drug therapy Start: 04-01-2024 End: 04-08-2025 take 1 tablet by mouth once daily Atorvastatin 40 mg tablet Discontinued 40 MG PO Daily April 01, 2024 8:19am April 08, 2025 7:48am Start: 03-07-2024 End: 04-01-2024 take 1 tablet [...] & Nails Gummies) 1250-7.5-7.5 MCG-MG-UNT chewable tablet (8 sources) Biotin w/ Vitami ns C & E (Hair Skin & Nails Gummies) 1250-7.5-7.5 MCG-MG-UNT chewable tablet as directed Orally Active calcium carbonate 1500 mg oral tablet (20 sources) Start: 01-18-2024 take 1 tablet by mouth once daily Calcium Carbonate (Calcium 600) 600 mg calcium (1,500 mg) tablet Active 600 MG PO Daily January 18, 2024 12:00am Complies with drug therapy take 1 tablet by mouth every twe lve hours Calcium 600 MG 1 tablet with meals Orally Twice a day Active Calcium Carbonate / vitamin D3 (13 sources) calcium carbonate/vitamin D3 (CALCIUM 600 + D,3, ORAL) Take 600 mg by mouth. Active clindamycin 300 mg oral capsule (4 sources) Lincosamide Antibacterial Start: 025 End: take 1 capsule by mouth in the [...] 04/30/2025 05/10/2025 Active 24 hr dilTIAZem hydrochloride 180 mg extended release oral capsule (20 sources) Calcium Channel Leland Start: DilTIAZem (CARDIZEM CD) 120 MG ER capsule Take 180 mg by mouth daily. 05/17/2024 Active Start: 01-20-2024 End: 04-01-2024 take 1 capsule by mouth once daily Diltiazem Hcl 120 mg capsule,extended release 24hr Discontinued 120 MG PO Daily January 20, 2024 12:00am April 01, 2024 8:23am Start: 11-28-2023 End: 11-27-2024 take 1 capsule by mouth once daily Diltiazem Hcl 180 mg capsule,extended release 24hr Discontinued 180 MG PO Daily April 01, 2024 8:21am September 17, 2024 12:10pm Start: 02-26-2023 End: 11-29-2023 take 1 capsule [...] 14, 2020 10:44am take 1 tablet by [facility] once daily dilTIAZem HCl - 120 MG Oral Tablet Take 1 tablet daily Quantity: 0 Refills: 0 Ordered: 04-Jan-2023 DO Active DULoxetine 30 mg delayed release oral capsule (20 sources) Serotonin and Norepinephrine Reuptake Inhibitor Start: 10-06-2024 End: 12-24-2024 take 1 capsule by mouth once daily DULoxetine (Cymbalta) [address] capsule Take 1 capsule (30 mg) by mouth once daily. 10/06/2024 Active fluocinonide 0.5 mg/ml topical solution (10 sources) Corticosteroid Start: 01-15-2024 fluocinonide (Lidex) 0.05 [...] MG PO Daily January 23, 2025 12:00am Complies with drug therapy Start: 01-20-2024 End: 01-23-2025 take 1 tablet by mouth once daily furosemide (Lasix) 20 mg tablet Indications: Chronic diastolic heart failure (Multi) , Shortness of breath TAKE 1 TABLET [...] 2020 10:51am gabapentin 100 mg oral capsule (8 sources) Anti-epileptic Agent Start: 12-06-2023 take 1 [...] 2021 12:29pm take 1 capsule by mo [facility] once daily Acidophilus Oral Capsule TAKE 1 CAPSULE Daily Quantity: 0 Refills: 0 Ordered: 06-Jun-2021 DO Active magnesium oxide 400 mg oral tablet (20 sources) Start: 03-28-2024 End: 09-24-2024 take 1 tablet by mouth once daily Magnesium Oxide 400 mg magnesium tablet Active 400 MG PO Daily April 08, 2024 12:00am Complies with drug therapy melatonin 10 mg oral capsule (3 sources) Start: 01-23-2025 take 2 capsules by mouth once daily at bedtime Melatonin 10 mg capsule Active 20 MG PO Daily at bedtime January 23, 2025 12:00am Complies with drug therapy 24 hr metoprolol succinate 50 mg extended release oral tablet (20 sources) beta-Adrenergic Leland Start: 01-23-2025 End: 04-24-2025 take 1 tablet by mouth once daily Metoprolol Succinate 50 mg tablet extended release 24 hr Active 50 MG PO Daily 90 90 April 24, 2025 12:41pm Complies with drug therapy Start: 07-23-2024 End: 09-10-2024 take 1 tablet [...] Discontinued 50 MG PO Twice daily 60 July [...] mouth daily. Suspended multivitamin (Daily Multi-Vitamin) tablet (19 sources) take 1 tablet by nghia th [...] 2021 12:00am Multivitamin Act ginny Multivitamin tablet (15 sources) Start: 04-01-2024 take 1 tablet by mouth once daily Multivitamin tablet Active 1 TAB PO Daily April 01, 2024 12:00am Complies with drug therapy Start: 04-01-2024 take 1 tablet by nghia th once daily Start: 04-01-2024 take 1 tablet by nghia th once daily Multivitamin tablet Active 1 TAB PO Daily April 01, 2024 12:00am Start: 04-01-2024 take 1 tablet by nghia th once daily Multivitamin tablet Active 1 TAB PO Daily March 31, 2024 11:00pm mupirocin 0.02 mg/mg topical ointment (17 sources) RNA Synthetase Inhibitor Antibacterial Start: 08-27-2024 End: 01-13-2025 Mupirocin 2 % ointment Active 1 APPLIC TOPICAL Twice daily 10 06January 13, 2025 9:26am Complies with drug therapy 2 ml ondansetron 2 mg/ml injection (1 source) Serotonin-3 Receptor Antagonist Start: 12-08-2024 End: 12-08-2024 take 4 mg intravenously once as needed for nausea 4 mg, Intravenous Push, PACU ONCE PRN, Starting on Sun12/08/24 at 1002, Until Sun12/08/24 at 1601, Nausea, Vomiting, PACU Now pyridostigmine bromide 30 mg oral tablet (20 sources) Start: 05-15-2022 take 1 tablet by mouth every twelve hours rivaroxaban 20 mg oral tablet (20 sources) Factor Xa Inhibitor Start: 01-23-2025 take 1 tablet by mouth once daily at dinner Rivaroxaban (Xarelto) 20 mg tablet Active 20 MG PO Daily January 23, 2025 12:00am must administer with evening meal Complies with drug therapy Start: 12-05-2021 End: 12-22-2025 take 1 tablet [...] TAKE 1 TABLET BY MOUTH EVERY NIGHT Complies with drug therapy Start: 07-12-2021 take 1 tablet by nghia [...] And Nails (Biotin)) 10,000 mcg Tablet,Chewable Discontinued 91046 MCG PO Every morning February 25, 2023 11:00pm November 24, 2023 9:06am Start: 02-26-2023 End: 11-24-2023 take 1 tablet by mouth once daily in the morning Biotin (Hair, Skin And Nails (Biotin)) 10,000 mcg Tablet,Chewable Discontinued 07431 MCG PO Every morning February 26, 2023 12:00am November 24, 2023 10:06am Start: 02-26-2023 take 1 tablet by nghia th once daily in the morning Biotin (Hair, Skin And Nails (Biotin)) 10,000 mcg Tablet,Chewable Active 40662 MCG PO Every morning February 25, 2023 11:00pm Start: 02-26-2023 take 1 tablet by nghia th once daily in the morning Biotin (Hair, Skin And Nails (Biotin)) 10,000 mcg Tablet,Chewable Active 86968 MCG PO Every morning February 26, 2023 12:00am 24 hr buPROPion hydrochloride 150 mg extended release oral tablet (20 sources) Aminoketone Start: 07-28-2024 End: 10-06-2024 [...] mg tablet extended release 24 hr Discontinued 150 MG PO Every morning July 25, 2024 1:00am July 28, 2024 1:58pm Start: 06-25-2020 End: 12-14-2020 take 1 tablet [...] 03, 2021 1:00am December 05, 2021 12:12pm cholecalciferol 0.05 mg oral capsule (20 sources) Vitamin D Start: 04-01-2024 End: 01-22-2025 take 1 capsule by mouth once daily Cholecalciferol (Vitamin D3) 50 mcg (2,000 unit) capsule Discontinued 50 MCG PO Daily April 01, 2024 12:00am January 22, 2025 10:57pm take 1 capsule by mouth once jesica ly cholecalciferol (Vitamin D-3) 50 mcg (2,000 unit) capsule Take 1 capsule (2,000 Units) by mouth once daily. Active take 1 tablet by mouth once dominga y cholecalciferol (Vitamin D3) 5,000 Units tablet Take 1 tablet (5,000 Units) by mouth once daily. Active take 2 tablets by mo [facility] every twenty-four hours Vitamin D3 10 MCG (400 UNIT) 2 tablets O rally Once a day Active cyclobenzaprine hydrochloride 5 mg oral tablet (20 [...] 8:13pm July 03, 2024 2:49pm Start: 03-17-2024 End: 05-28-2024 take 1 tablet by mouth once daily Digoxin 125 mcg (0.125 mg) tablet Discontinued 125 MCG PO Daily April 08, 2024 12:00am May 28, 2024 10:54pm Start: 03-17-2024 take 0.125 mg by [facility] once daily digoxin (LANOXIN) 125 MCG tablet Take 0.125 mg by mouth daily. 03/17/2024 Active doxycycline hyclate 100 mg oral capsule (12 sources) Tetracycline-class Drug Start: 01-21-2025 End: 02-02-2025 take 1 capsule by mouth twice daily Doxycycline Hyclate 100 mg capsule Discontinued 100 MG PO Twice daily 14 January 21, 2025 12:00am February 02, 2025 4:05pm Start: 09-12-2024 End: 01-09-2025 take 1 tablet by mouth twice daily Doxycycline Hyclate 100 mg tablet Discontinued 100 MG PO Twice daily 08 06September 12, 2024 1:00am January 09, 2025 2:30pm escitalopram 10 mg oral tablet (20 sources) [...] mononitrate 30 mg extended release oral tablet (13 sources) Nitrate Vasodilator Start: 07-23-2024 End: 09-10-2024 [...] mg Tablet Discontinued 5 MG PO Daily April 11, 2021 9:48am April 21, 2021 [...] 0 Ordered: 06-Jun-2021 DO Active Multivitamin Tablet (15 sources) Start: 04-21-2021 End: 11-24-2023 take 1 [...] Ordered: 17-Feb-2022 DO Start : 17-Feb-2022 Complete pantoprazole 40 mg delayed release oral tablet (20 sources) Proton Pump Inhibitor Start: 03-27-2024 End: 09-05-2024 take 1 tablet by mouth once daily Pantoprazole 40 mg tablet,delayed release (DR/EC) Discontinued 40 MG PO Daily April 08, 2024 12:00am April 18, 2024 10:20am Start: 03-27-2024 End: 01-22-2025 take 1 tablet by mouth twice daily Pantoprazole 40 mg tablet,delayed release (DR/EC) Discontinued 40 MG PO Twice daily 60 30 April 18, 2024 10:20am January 22, 2025 11:00pm prednisoLONE acetate 10 mg/ml ophthalmic suspension (4 sources) Corticosteroid Start: 02-17-2022 take 1 drop(s) into the eye(s) four times daily prednisoLONE Acetate 1 % Ophthalmic Suspension INSTILL 1 DROP INTO RIGHT EYE 4 TIMES A DAY DIRECTED Quantity: 5 Refills: 0 Ordered: 17-Feb-2022 DO Start : 17-Feb-2022 Complete 1000 ml sodium chloride 9 mg/ml injection (3 sources) Start: 12-08-2024 Intravenous, a t 75 mL/hr, CONTINUOUS, Starting on Sun12/08/24 at 1030, Until Discontinued Start: 12-08-2024 3 mL, Intraven ous Push, PRN, Starting on Sun12/08/24 at 1002, Until Discontinued, For medication administration and blood draw, PACU Now Start: 05-29-2024 take 1 mL intravenou sly every hour at 75 mL/hr, Intravenous, CONTINUOUS, Starting on Sun05/29/24 at 1230, Until Discontinued sotalol hydrochloride 80 [...] Tablet Discontinued 120 MG PO Twice daily January 20, 2024 12:00am April 01, 2024 [...] DO Start : 01-May-2022 Complete Vit A-Vit Y-Xtrblw-Pybd-Copper (Sodo-Yxtt-Sfsf(Vit A,C-Biotin)) 2,500 unit-100 mg-2,500 mcg capsule (20 sources) Start: 01-18-2024 End: 05-08-2024 take 1 capsule by mouth once daily Vit A-Vit Z-Ozsndo-Toyp-Copper (Gmpe-Kedh-Gfss(Vit A,C-Biotin)) 2,500 unit-100 mg-2,500 mcg capsule Discontinued 1 CAP PO Daily January 17, 2024 11:00pm May 08, 2024 11:06am Start: 01-18-2024 End: 05-08-2024 take 1 capsule by mouth once daily Vit A-Vit W-Iavhyr-Jjwb-Copper (Swek-Euuw-Wqgf(Vit A,C-Biotin)) 2,500 unit-100 mg-2,500 mcg capsule Discontinued 1 CAP PO Daily January 18, 2024 12:00am May 08, 2024 12:06pm Start: 01-18-2024 take 1 capsule by [facility] once daily Vit A-Vit G-Vhxcdp-Igkq-Copper (Ernb-Solq-Rlws(Vit A,C-Biotin)) 2,500 unit-100 mg-2,500 mcg capsule Active 1 CAP PO Daily January 18, 2024 12:00am Problems Active Problems Problem Classification Problem Date Documented Date Episodic/Chronic Abdominal pain (20 sources) Right upper quadrant pain; Translations: [Right upper quadrant pain] Onset: 5 Resolved: 2 06-27-2021 Episodic Comment on above: Problem List clean-u p per request of Phys. EHR Cmte Acquired foot deformities (8 sources) Acquired hallux rigidus; Translations: [Hallux rigidus, unspecified foot] Onset: 3 02-19-2023 Chronic Acquired foot deformities (5 sources) Acquired deformity of toe of left foot; Translations: [Acquired deformities of toe(s), unspecified, left foot] 02-12-2025 Episodic Acquired foot deformities (5 sources) Acquired deformity of toe of right foot; Translations: [Acquired deformities of toe(s), unspecified, right foot] 02-12-2025 Episodic Acute and unspecified renal failure (20 sources) Injury of kidney; Translations: [Acute kidney failure, unspecified] Onset: 4 04-21-2021 Episodic Comment on above: Problem List clean-u p per request of [facility] Acute myocardial infarction (13 sources) Acute non-ST segment elevation myocardial infarction; Translations: [Myocardial infarction] Onset: 4 Chronic Cardiac dysrhythmias (20 sources) Persistent atrial fibrillation; Translations: [Atrial fibrillation] Onset: 6 06-23-2021 Chronic Comment on above: Problem List clean-u p per request of Phys. EHR Cmte PFT: FEV1/FVC 71, TL V 93%, DLCO 59% - 09/2024 Echo: LVEF 55%, VALERIE, normal RV size/function, RVSP 01/2024,PFT: FEV1/FVC 71, TLV 93%, DLCO 59% - 09/2024 Echo: LVEF 55%, VALERIE, normal RV size/function, RVSP 21 01/2024,PFT: FEV1/FVC 71, TLV 93%, DLCO 59% - 09/2024,Echo: LVEF 55-60%, VALERIE, RVSP 39 - 04/2025 Chronic kidney disease (20 sources) Chronic kidney disease stage 3A ; Translations: [Chronic kidney disease, Stage III (moderate)] Onset: 3 05-31-2023 Chronic Chronic kidney disease (5 sources) Chronic kidney disease; Translations: [Chronic kidney disease, stage 3a (Multi)] Onset: 3 Chronic ulcer of skin (1 source) Non-pressure chronic ulcer of other part of left foot with fat layer exposed; Translations: [Ulcer of other part of foot] 04-30-2025 Chronic Conduction disorders (20 sources) Cardiac pacemaker in situ; Translations: [Cardiac pacemaker in situ] Onset: 3 06-29-2021 Chronic Comment on above: Problem List clean-u p per request of Phys. [facility] Congestive heart failure; nonhypertensive (20 sources) Diastolic heart failure; Translations: [Diastolic heart failure, unspecified] Onset: 2 07-01-2021 Chronic Comment on above: Echo: LVEF 55%, VALERIE, RVSP 21, normal RV size/function - 01/2024 Problem List clean-u p per request of Phys. EHR Cmte Coronary atherosclerosis and other heart disease (20 sources) Single coronary vessel disease; Translations: [Coronary atherosclerosis of unspecified type of vessel, tetlin or graft] Onset: 3 04-28-2023 Chronic Comment [...] in toe; Translations: [Tinea unguium] 02-12-2025 Episodic Nausea and vomiting (20 sources) Vomiting; Translations: [Vomiting, unspecified] Onset: 5 Resolved: 2 06-27-2021 Episodic Comment on above: Problem List clean-u p per request of Phys. EHR Cmte Nonspecific chest pain (20 sources) Chest pain; Translations: [Chest pain, unspecified] Onset: 4 04-21-2021 Episodic Comment on above: Problem List clean-u p per request of Phys. EHR Cmte Nutritional deficiencies (1 source) Vitamin D deficiency; Translations: [Vitamin D deficiency, unspecified] Onset: 7 Chronic Osteoarthritis (20 sources) Arthritis of left knee; Translations: [Unilateral primary osteoarthritis, left knee] Onset: 5 Chronic Osteoporosis (1 source) Primary osteoporosis; Translations: [Age-related osteoporosis without current pathological fracture] Chronic Other aftercare (1 source) Long-term current use of drug therapy; Translations: [Other manager terminal (current) drug therapy] Episodic Other aftercare (1 source) High risk drug monitoring status; Translations: [joint terminal attack controller (current) use of opiate analgesic] Episodic Other [...] and structure, other site] 11-24-2023 Episodic Other bone disease and musculoskeletal deformities (2 sources) Exostosis of left foot; Translations: [Other specified disorders of bone, ankle and foot] 05-07-2025 Episodic Other circulatory disease (20 sources) Low blood pressure; Translations: [Hypotension, unspecified] 06-27-2021 Episodic Comment on above: Problem List clean-u p per request of Phys. EHR Cmte Other congenital anomalies (8 sources) Porokeratosis; Translations: [Other specified congenital malformations of skin] Onset: 02-19-2023 Chronic Other connective tissue disease (20 [...] Episodic Other diseases of veins and lymphatics (17 sources) Venous insufficiency of leg; Translations: [Venous insufficiency (chronic) (peripheral)] 05-08-2024 Episodic Other diseases of veins and lymphatics (6 sources) Venous insufficiency (chronic) (peripheral); Translations: [Venous (peripheral) insufficiency, unspecified] 05-08-2024 Episodic Other gastrointestinal disorders (9 sources) Intestinal malabsorption; Translations: [Other specified intestinal [...] Comment on above: CT: no nodules detec anne marie - 10/2022 CT: no nodules detec anne marie - 10/2022,PFT: FEV1/FVC 71, TLV 93%, DLCO 59% - 09/2024 CT: no nodules detec anne marie - 10/2022, Other lower respiratory disease (2 sources) [...] Chronic Other nutritional; endocrine; and metabolic disorders (16 sources) Body mass index 30+ - obesity; Translations: [Body mass index (BMI) 30.0-30.9, adult] Onset: 4 02-25-2024 Chronic Other screening for suspected conditions (not mental disorders or infectious disease) (20 sources) CT of abdomen abnormal; Translations: [Abnormal findings on diagnostic imaging of other abdominal regions, including retroperitoneum] Onset: 8 06-27-2021 Episodic Comment on above: Problem List clean-u p per request of Phys. EHR Cmte Pleurisy; pneumothorax; pulmonary collapse (8 sources) Pleural effusion; Translations: [Pleural effusion, not [...] 5 Episodic Respiratory failure; insufficiency; arrest (adult) (5 sources) Acute respiratory failure; Translations: [Acute respiratory failure with hypoxia] 01-23-2025 Episodic Skin and subcutaneous tissue infections (8 sources) Cellulitis of leg, excluding foot; Translations: [...] tobacco; Translations: [Never a smoker] 10-23-2024 Unclassified (11 sources) Other persistent atrial fibrillation; Translations: [Other [...] Four Ways to Beat the Frailty Risk [email or web address] vlpgq-vcxq-mvub-to-beat -the-fra ilty-risk 01-23-2025 Unclassified (2 sources) Autogenerated Problem Onset: 5 04-08-2025 Urinary tract [...] Phys. EHR Cmte Deficiency and other anemia (8 sources) Anemia; Translations: [Anemia, unspecified] Onset: 09-26-2012 02-22-2023 Episodic E Codes: Adverse effects of medical drugs (1 source) Anticoagulant adverse reaction; Translations: [Adverse effect of anticoagulants, initial encounter] Resolved: 2020 Episodic E Codes: Natural/environment (1 source) Nonvenomous insect bite; Translations: [Bitten or stung by nonvenomous insect and other nonvenomous arthropods, initial encounter] Resolved: 04-04-2022 Episodic Nutritional deficiencies (8 sources) Iron deficiency; Translations: [Iron deficiency] Onset: 09-26-2012 02-22-2023 Episodic Other aftercare (20 sources) Drug therapy finding; Translations: [Long-term (current) use of anticoagulants] Onset: 04-28-2023 06-23-2021 Episodic Comment on above: Problem List clean-u p per request of Phys. 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 sources) long-term (current) use of anticoagulants; Translations: [Long-term (current) use of anticoagulants] Onset: 04-28-2023 09-21-2022 Episodic Other aftercare (11 sources) Other penitentiary (current) drug therapy; Translations: [Long-term (current) use of other medications] Onset: 04-28-2023 Episodic Other aftercare (20 sources) Taking high risk medication; Translations: [Other penitentiary (current) drug therapy] Onset: 04-28-2023 04-28-2023 Episodic [...] dysphagia] Onset: 06-26-2024 Episodic Other hematologic conditions (8 sources) H/O: anemia - iron deficient; Translations: [...] Onset: 08-10-2016 Episodic Other nervous system disorders (8 sources) Acute postoperative pain; Translations: [Other acute [...] index (BMI) 28.0-28.9, adult] Onset: 04-24-2024 Episodic Residual codes; unclassified (8 sources) H/O: respiratory disease; Translations: [Personal history of other diseases of respiratory system] Resolved: 01-04-2023 Episodic Residual codes; unclassified (1 source) Requires influenza virus vaccination; Translations: [Need for prophylactic vaccination and inoculation, Influenza] Onset: 06-12-2018 Episodic Residual codes; unclassified (20 sources) Never smoked any substance; Translations: [Other specified health status] Onset: 04-28-2023 04-28-2023 Episodic Residual codes; unclassified (8 sources) Subacute delirium; Translations: [Disorientation, unspecified] Onset: 08-24-2015 02-22-2023 Episodic Residual codes; unclassified (8 sources) Device in situ; Translations: [Other specified [...] W/AND (SUSP) EXPOS COVID-19] Onset: 04-20-2022 Unclassified (19 sources) Onset: 05-31-2023 Resolved: 09-05-2024 05-31-2023 Viral infection (1 source) Disease caused by 2019-nCoV; Translations: [COVID-19] Resolved: 2020 Results Test Name Value Interpretation Reference Range Facility Glomerular filtration rate ( GFR) estimation in non- AmericanOrdered By: Maxwell Basurto on 05-05-2025 GFR/1.73 sq M.predicted among non-blacks MDRD (S/P/Bld) [Vol rate/Area] 34 mL/min/{1.73_m2} Low >=60 mL/min/1.7 3m 2 [facility] Laboratory - Chemistry and C hemistry - challengeOrdered By: Maxwell Basurto on 05-05-2025 Calcium [Mass/Vol] 9.0 mg/dL 8.5-10.1 [facility] Chloride [Moles/Vol] 104 mmol/L 98-107 [facility] CO2 [Moles/Vol] 27.2 mmol/L 21.0-32.0 [facility] Creatinine [Mass/Vol] 1.48 mg/dL High 0.55-1.02 [facility] GFR/1.73 sq M.predicted MDRD (S/P/Bld) [Vol rate/Area] 41 mL/min/{1.73_m2} Low >=60 mL/min/1.7 3m 2 [facility] Glucose [Mass/Vol] 107 mg/dL High 74-106 [facility] Natriuretic peptide B (Bld) [Mass/Vol] 1324.0 pg/mL <=1800.0 [facility] Potassium [Moles/Vol] 4.4 mmol/L 3.5-5.1 [facility] Sodium [Moles/Vol] 141 mmol/L 136-145 [facility] Urea nitrogen [Mass/Vol] 31.0 mg/dL High 7.0-18.0 [facility] Urea nitrogen/Creatinine [Mass ratio] 20.9 mg/mg [facility] Serum or plasma anion gap de terminationOrdered By: Maxwell Basurto on 05-05-2025 Anion gap [Moles/Vol] 14.2 mmol/L [facility] Erythrocyte distribution wid th Auto (RBC) [Ratio]Ordered By: Maxwell Basurto on 05-04-2025 Erythrocyte distribution width (RBC) [Ratio] 13.5 % 11.0-15.0 [facility] Globulin Calc (S) [Mass/Vol] Ordered By: Jazmin العلي on 05-04-2025 Globulin (S) [Mass/Vol] 3.7 g/dL [facility] Glomerular filtration rate ( GFR) estimation in non- AmericanOrdered By: Jazmin العلي on 05-04-2025 GFR/1.73 sq M.predicted among non-blacks MDRD (S/P/Bld) [Vol rate/Area] 46 mL/min/{1.73_m2} Low >=60 mL/min/1.7 3m 2 [facility] Hematocrit Auto (Bld) [Volum e fraction]Ordered By: Maxwell Basurto on 05-04-2025 Hematocrit (Bld) [Volume fraction] 39.5 % 36.0-48.0 [facility] Hemoglobin [Mass/volume] in BloodOrdered By: Maxwell Basurto on 05-04-2025 Hemoglobin (Bld) [Mass/Vol] 12.8 g/dL 12.0-16.0 [facility] Laboratory - Chemistry and C hemistry - challengeOrdered By: Maxwell Basurto on 05-04-2025 Bilirubin Ql (U) Negative NEGATIVE [facility] Glucose (U) [Mass/Vol] Negative NEGATIVE [facility] Ketones Ql (U) Negative NEGATIVE [facility] pH (U) 5.5 [pH] 5.0-9.0 [facility] Specific gravity (U) [Rel density] 1.015 1.005-1.02 5 [facility] Urobilinogen Qn (U) 0.2 {Sherrell'U}/dL 0.2-1.0 [facility] Laboratory - Chemistry and C hemistry - challengeOrdered By: Jazmin العلي on 05-04-2025 Albumin [Mass/Vol] 3.7 g/dL 3.4-5.0 [facility] ALP [Catalytic activity/Vol] 92 U/L 46-116 [facility] ALT [Catalytic activity/Vol] 23 U/L 14-59 [facility] AST [Catalytic activity/Vol] 27 U/L 15-37 [facility] Bilirubin [Mass/Vol] 1.5 mg/dL High 0.2-1.0 [facility] Calcium [Mass/Vol] 9.2 mg/dL 8.5-10.1 [facility] Chloride [Moles/Vol] 105 mmol/L 98-107 [facility] CO2 [Moles/Vol] 23.2 mmol/L 21.0-32.0 [facility] Creatinine [Mass/Vol] 1.14 mg/dL High 0.55-1.02 [facility] GFR/1.73 sq M.predicted MDRD (S/P/Bld) [Vol rate/Area] 55 mL/min/{1.73_m2} Low >=60 mL/min/1.7 3m 2 [facility] Glucose [Mass/Vol] 97 mg/dL 74-106 [facility] Potassium [Moles/Vol] 3.5 mmol/L 3.5-5.1 [facility] Protein [Mass/Vol] 7.4 g/dL 6.4-8.2 [facility] Sodium [Moles/Vol] 142 mmol/L 136-145 [facility] Urea nitrogen [Mass/Vol] 23.0 mg/dL High 7.0-18.0 [facility] Urea nitrogen/Creatinine [Mass ratio] 20.2 mg/mg [facility] Laboratory - Specimen inform ationOrdered By: Maxwell Basurto on 05-04-2025 Appearance (U) CLEAR CLEAR [facility] Color (U) LT. YELLOW YELLOW [facility] Laboratory - UrinalysisOrder ed By: Maxwell Basurto on 05-04-2025 Leukocyte esterase Test strip Ql (U) MODERATE Abnormal NEGATIVE [facility] Mucus Ql (Urine sed) TRACE Abnormal NONE SEEN [facility] Nitrite Ql (U) Negative NEGATIVE [facility] Protein Ql (U) Negative NEG/TRACE [facility] Leukocytes [#/volume] correc anne marie for nucleated erythrocytes in Blood by Automated counOrdered By: Maxwell Basurto on 05-04-2025 WBC corrected for nucl RBC Auto (Bld) [#/Vol] 9.8 10 3/uL 4.0-11.0 [facility] MCH Auto (RBC) [Entitic mass ]Ordered By: Maxwell Basurto on 05-04-2025 MCH (RBC) [Entitic mass] 29.3 pg 26.7-34.0 [facility] MCHC Auto (RBC) [Mass/Vol]Or dered By: Maxwell Basurto on 05-04-2025 MCHC (RBC) [Mass/Vol] 32.4 g/dL 29.9-35.2 [facility] MCV Auto (RBC) [Entitic vol] Ordered By: Maxwell Basurto on 05-04-2025 MCV (RBC) [Entitic vol] 90.4 fL 81.0-99.0 [facility] No Panel InformationOrdered By: Maxwell Basurto on 05-04-2025 Urine Bacteria SMALL #/HPF Abnormal NONE SEEN [facility] Urine Culture Reflexed YES-[facility] Urine Occult Blood Negative NEGATIVE [facility] Urine Other Casts NONE SEEN #/LPF NONE SEEN [facility] Urine Other Crystals None Seen #/HPF None Seen [facility] Urine RBC 0-2 #/HPF 0-2 [facility] Urine Squamous Epithelial Cells FEW #/LPF Abnormal NONE/RARE [facility] Urine WBC 5-10 #/HPF Abnormal NONE SEEN [facility] Platelet mean volume Auto (B ld) [Entitic vol]Ordered By: Maxwell Basurto on 05-04-2025 Platelet mean volume (Bld) [Entitic vol] 10.2 fL 9.5-13.5 [facility] Platelets Auto (Bld) [#/Vol] Ordered By: Maxwell Basurto on 05-04-2025 Platelets (Bld) [#/Vol] 209 10 3/uL 150-450 [facility] RBC Auto (Bld) [#/Vol]Ordere d By: Maxwell Basurto on 05-04-2025 RBC (Bld) [#/Vol] 4.37 10 6/uL 4.20-5.40 [facility] Serum or plasma albumin/glob ulin mass ratioOrdered By: Jazmin العلي on 05-04-2025 Albumin/Globulin [Mass ratio] 1.0 {ratio} [facility] Serum or plasma anion gap de terminationOrdered By: Jazmin العلي on 05-04-2025 Anion gap [Moles/Vol] 17.3 mmol/L [facility] Urine Cultureon 05-04-2025 Bacteria identified Cx Nom (U) ORGANISM: Escherichia coli (O:ESCCOL) [place] Count >100,000 Aerobic CASSANDRA Charge ([id number]) SUSCEPTIBILITY ORGANISM: O:ESCCOL ANTIBIOTIC INTERPRETATION CASSANDRA Amikacin S <16 Amoxacillin/K Clavulanate S <8 Ampicillin S <8 Ampicillin/Sulbactam S <4 Aztreonam S <4 Cefazolin S <2 Cefepime S <2 Ceftazidime S <1 Ceftazidime/Avibactam S <4 Ceftolozane/Tazobactam S <2 Ceftriaxone S <1 Cefuroxime S <4 Ciprofloxacin S <0.25 Ertapenem S <0.5 Gentamicin S <2 Levofloxacin S <0.5 Meropenem S <1 Meropenem/Vaborbactam S <2 Nitrofurantoin S <32 Piperacillin/Tazobactam S <8 Tetracycline S <4 Tigecycline S <2 Tobramycin S <2 Trimethoprim/Sulfamethoxaz ole S <0.5 S = SUSCEPTIBLE I = INTERMEDIATE R = RESISTANT BLANK = DATA NOT AVAILABLE, OR DRUG NOT ADVISABLE OR TESTED R* = RESISTANCE DUE TO EXTENDED SPECTRUM BETA-LACTAMASES ESBL = EXTENDED SPECTRUM BETA-LACTAMASE TFG = THYMIDINE-DEPENDENT STRAIN KHOA = BETA-LACTAMASE POSITIVE IB = INDUCIBLE BETA-LACTAMASE. APPEARS IN PLACE OF 'S' WITH SPECIES KNOWN TO POSSESS INDUCIBLE BETA-LACTAMASES. POTENTIALLY THEY MAY BECOME RESISTANT TO ALL B-LACTAM DRUGS. PERFORMED BY: [facility] [address] [place] [address] PATHOLOGIST INSURANCE SALES MANAGER REENA JIN M.D. Normal [facility] Comment on above: Performed By: #### C UU ####[facility] [id number] [place] [id number] [facility] Urine cultureOrdered By: J Carlos Basurto on 05-04-2025 Bacteria identified Cx Nom (U) Escherichia coli Abnormal [facility] Basophils Auto (Bld) [#/Vol] Ordered By: Juanito Barragan on 05-03-2025 Basophils (Bld) [#/Vol] 0.0 10 3/uL 0.0-0.1 [facility] Basophils/100 WBC Auto (Bld) Ordered By: Juanito Barrgaan on 05-03-2025 Basophils/100 WBC (Bld) 0.2 % 0.2-2.0 [facility] Eosinophils/100 WBC Auto (Bl d)Ordered By: Juanito Barragan on 05-03-2025 Eosinophils/100 WBC (Bld) 0.6 % Low 0.9-7.0 [facility] Erythrocyte distribution wid th Auto (RBC) [Ratio]Ordered By: Juanito Barragan on 05-03-2025 Erythrocyte distribution width (RBC) [Ratio] 13.7 % 11.0-15.0 [facility] Glomerular filtration rate ( GFR) estimation in non- AmericanOrdered By: Juanito Barragan on 05-03-2025 GFR/1.73 sq M.predicted among non-blacks MDRD (S/P/Bld) [Vol rate/Area] 41 mL/min/{1.73_m2} Low >=60 mL/min/1.7 3m 2 [facility] Hematocrit Auto (Bld) [Volum e fraction]Ordered By: Juanito Barragan on 05-03-2025 Hematocrit (Bld) [Volume fraction] 39.2 % 36.0-48.0 [facility] Hemoglobin [Mass/volume] in BloodOrdered By: Juanito Barragan on 05-03-2025 Hemoglobin (Bld) [Mass/Vol] 13.1 g/dL 12.0-16.0 [facility] Laboratory - Chemistry and C hemistry - challengeOrdered By: Juanito Barragan on 05-03-2025 Calcium [Mass/Vol] 9.0 mg/dL 8.5-10.1 [facility] Chloride [Moles/Vol] 105 mmol/L 98-107 [facility] CO2 [Moles/Vol] 21.7 mmol/L 21.0-32.0 [facility] Creatinine [Mass/Vol] 1.26 mg/dL High 0.55-1.02 [facility] GFR/1.73 sq M.predicted MDRD (S/P/Bld) [Vol rate/Area] 49 mL/min/{1.73_m2} Low >=60 mL/min/1.7 3m 2 [facility] Glucose [Mass/Vol] 129 mg/dL High 74-106 [facility] Natriuretic peptide B (Bld) [Mass/Vol] 5655.0 pg/mL Critically high <=1800.0 [facility] Comment on above: RESULTS CALLED TO DR Melita BARRAGAN Potassium [Moles/Vol] 4.4 mmol/L 3.5-5.1 [facility] Sodium [Moles/Vol] 140 mmol/L 136-145 [facility] Urea nitrogen [Mass/Vol] 24.0 mg/dL High 7.0-18.0 [facility] Urea nitrogen/Creatinine [Mass ratio] 19.0 mg/mg [facility] Laboratory - Hematology and Cell countsOrdered By: Juanito Barragan on 05-03-2025 Immature granulocytes/100 WBC (Bld) 0.3 % 0.0-0.5 [facility] Laboratory - Microbiology an d Antimicrobial susceptibilityOrdered By: Juanito Barragan on 05-03-2025 SARS-CoV-2 (COVID-19) RNA GUILLERMO+probe Ql (Unsp spec) Negative NEGATIVE [facility] Comment on above: This test has not be en FDA cleared or approved, but has beenauthorized by the FDA under an Emergency Use Authorization(EUA) for use by authorized laboratories certified underIA that meet the requirements to perform moderate or highcomplexity testing. This test has been authorized only forthe detection of proteins from SARS-CoV-2, not for any otherviruses or pathogens. The emergency use of this test isauthorized for the duration of the declaration thatcircumstances exist justifying the authorization ofemergency use of in vitro diagnostic tests for detectionand/or diagnosis of Covid-19 under section 564(b)(1) of theAct, 21 U.S.C. 360bbb-3(b)(1), unless the declaration isterminated or authorization is revoked sooner. Leukocytes [#/volume] correc anne marie for nucleated erythrocytes in Blood by Automated counOrdered By: Juanito Barragan on 05-03-2025 WBC corrected for nucl RBC Auto (Bld) [#/Vol] 12.9 10 3/uL High 4.0-11.0 [facility] Lymphocytes Auto (Bld) [#/Vo l]Ordered By: Juanito Barragan on 05-03-2025 Lymphocytes (Bld) [#/Vol] 1.1 10 3/uL Low 1.2-3.8 [facility] Lymphocytes/100 WBC Auto (Bl d)Ordered By: Juanito Barragan on 05-03-2025 Lymphocytes/100 WBC (Bld) 8.2 % Low 20.5-60.0 [facility] MCH Auto (RBC) [Entitic mass ]Ordered By: Juanito Barragan on 05-03-2025 MCH (RBC) [Entitic mass] 29.8 pg 26.7-34.0 [facility] MCHC Auto (RBC) [Mass/Vol]Or dered By: Juanito Barragan on 05-03-2025 MCHC (RBC) [Mass/Vol] 33.4 g/dL 29.9-35.2 [facility] MCV Auto (RBC) [Entitic vol] Ordered By: Juanito Barragan on 05-03-2025 MCV (RBC) [Entitic vol] 89.3 fL 81.0-99.0 [facility] Monocytes Auto (Bld) [#/Vol] Ordered By: Juanito Barragan on 05-03-2025 Monocytes (Bld) [#/Vol] 1.0 10 3/uL High 0.3-0.8 [facility] Monocytes/100 WBC Auto (Bld) Ordered By: Juanito Barragan on 05-03-2025 Monocytes/100 WBC (Bld) 7.9 % 1.7-12.0 [facility] Neutrophils Auto (Bld) [#/Vo l]Ordered By: Juanito Barragan on 05-03-2025 Neutrophils (Bld) [#/Vol] 10.6 10 3/uL High 1.4-6.5 [facility] Neutrophils/100 WBC Auto (Bl d)Ordered By: Juanito Barragan on 05-03-2025 Neutrophils/100 WBC (Bld) 82.8 % High 43.0-75.0 [facility] No Panel InformationOrdered By: Juanito Barragan on 05-03-2025 Troponin I High Sensitivity 67.2 pg/mL Critically high 4.0-51.3 [facility] Comment on above: RESULTS CALLED TO dr Melita SimT-OFF POINTS HAVE BEEN ESTABLISHED BASED ON THE FOURTHUNIVERSAL DEFINITION OF MYOCARDIAL INFARCTION. THE UPPERREFERENCE LIMIT (URL) OF TROPONIN, DEFINED THE 99THPERCENTILE OF cTnI DISTRIBUTION IN A REFERENCE POPULATION,HAS BEEN CONFIRMED THE DECISION THRESHOLD FOR MIDIAGNOSIS.99TH PERCENTILE = 51.4 PG/MLNOTE: HIGH-SENSITIVITY TROPONIN ASSAY IS NOT INTENDED TO BEUSED IN ISOLATION BUT SHOULD BE INTERPRETED IN CONJUNCTIONWITH OTHER DIAGNOSTIC AND CLINICAL INFORMATION. Bedside Influenza Type A Antigen Negative [facility] Comment on above: Negative for Flu A p rotein antigen. Infection due to Flu Acannot be ruled out. Flu A antigen in the sample may bebelow the detection limit of the test. Bedside Influenza Type B Antigen Negative [facility] Comment on above: Negative for Flu B p rotein antigen. Infection due to Flu Bcannot be ruled out. Flu B antigen in the sample may bebelow the detection limit of the test. Eosinophils # (Auto) 0.1 10 3/uL 0.0-0.7 [facility] Immature Granulocyte # (Auto) 0.04 10 3/uL High 0.00-0.03 [facility] Platelet mean volume Auto (B ld) [Entitic vol]Ordered By: Juanito Barragan on 05-03-2025 Platelet mean volume (Bld) [Entitic vol] 10.1 fL 9.5-13.5 [facility] Platelets Auto (Bld) [#/Vol] Ordered By: Juanito Barragan on 05-03-2025 Platelets (Bld) [#/Vol] 240 10 3/uL 150-450 [facility] RBC Auto (Bld) [#/Vol]Ordere d By: Juanito Barragan on 05-03-2025 RBC (Bld) [#/Vol] 4.39 10 6/uL 4.20-5.40 [facility] Serum or plasma anion gap de terminationOrdered By: Juanito Barragan on 05-03-2025 Anion gap [Moles/Vol] 17.7 mmol/L [facility] Creatinineon 05-01-2025 Creatinine [Mass/Vol] 1.50 mg/dL High 0.60-1.30 [facility] Comment on above: Result Comment: Hydr oxyurea can cause significant interference with creatinine measurement using the i-STAT device. An alternate method of creatinine measurement must be used in patients treated with hydroxyurea. Performed By: #### 2 160-0 #### STEPHEN DICK ([id number]) CHANELL [id number] CT (SearchMeT) [address] [place] [address] Creatinine [Mass/Vol]on 04-20 Interpretation and review of laboratory results Abnormal [facility] POCT eGFR 35 Low - PINF [facility] Comment on above: Calculations of fide mated GFR are performed using the 2020 CKD-EPI Study Refit equation without the race variable for the IDMS-Traceable Creatinine Methods. https://jasn.asnjournals.org/content/early/ASN.83203 79982 [facility] Glomerular filtration rate 35 mL/min/1.73m*2 Low >=60 [facility] Comment on above: Result Comment: Calc ulations of estimated GFR are performed using the 2020 CKD-EPI Study Refit ???equation without the race variable for the IDMS-Traceable Creatinine Methods. https://jasn.asnjournals.org/content/early/ASN.86442 84226 Performed By: #### 2 160-0 #### STEPHEN DICK ([id number]) CHANELL [id number] CT ([employer]CT) [address] [place] [address] POCT CREATININE AND GFRon Creatinine [Mass/Vol] 1.50 mg/dL High 0.60 - 1.30 mg/dL [facility] Comment on above: Hydroxyurea can caus e significant interference with creatinine measurement using the i-STAT device. An alternate method of creatinine measurement must be used in patients treated with hydroxyurea. Basic metabolic 2000 panelon 04-28-2025 Anion gap [Moles/Vol] 12 mmol/L Normal 10-20 [facility] Amb[facility] Comment on above: Performed By: #### 2 4321-2 #### ALEK KENT ([id number]) [facility] (EMC) [address] [place] [address] 68002 Calcium [Mass/Vol] 9.1 mg/dL Normal 8.6-10.3 [facility] Ambulatory Comment on above: Performed By: #### 2 4321-2 #### ALEK KENT ([id number]) [facility] (EMC) [address] [place] [address] 19090 Chloride [Moles/Vol] 102 mmol/L Normal 98-107 [facility] Ambulatory Comment on above: Performed By: #### 2 4321-2 #### ALEK KENT ([id number]) [facility] (EMC) [address] [place] [address] 30741 CO2 [Moles/Vol] 29 mmol/L Normal 21-32 [facility] Ambulatory Comment on above: Performed By: #### 2 4321-2 #### ALEK KENT ([id number]) [facility] (EMC) [address] [place] [address] 88900 Creatinine [Mass/Vol] 1.62 mg/dL High 0.50-1.05 [facility] Ambulatory Comment on above: Performed By: #### 2 4321-2 #### ALEK KENT ([id number]) [facility] (EMC) [address] [place] [address] 22258 Glomerular filtration rate 32 mL/min/1.73m*2 Low >60 [facility] Ambulatory Comment on above: Result Comment: Calc ulations of estimated GFR are performed using the 2020 CKD-EPI Study Refit equation without the race variable for the IDMS-Traceable creatinine methods. https://jasn.asnjournals.org/content//ASN.32423 38647 Performed By: #### 2 4321-2 #### ALEK KENT ([id number]) [facility] (EMC) [address] [place] [address] 91479 Glucose [Mass/Vol] 104 mg/dL High 74-99 [facility] Ambulatory Comment on above: Performed By: #### 2 4321-2 #### ALEK KENT ([id number]) [facility] (EMC) [address] [place] [address] 43052 Potassium [Moles/Vol] 4.1 mmol/L Normal 3.5-5.3 [facility] Ambulatory Comment on above: Performed By: #### 2 4321-2 #### ALEK KENT ([id number]) [facility] (EMC) [address] [place] [address] 04876 Sodium [Moles/Vol] 139 mmol/L Normal 136-145 [facility] Ambulatory Comment on above: Performed By: #### 2 4321-2 #### ALEK KENT ([id number]) [facility] (EMC) [address] [place] [address] 66214 Urea nitrogen [Mass/Vol] 38 mg/dL High 6-23 [facility] Ambulatory Comment on above: Performed By: #### 2 4321-2 #### ALEK KENT ([id number]) [facility] (EMC) [address] [place] [address] 88112 CBC panel Auto (Bld)on 04-28 Erythrocyte distribution width (RBC) [Ratio] 13.8 % Normal 11.5-14.5 [facility] Ambulatory Comment on above: Performed By: #### 5 8410-2 #### ALEK KENT ([id number]) [facility] (EMC) [address] [place] [address] 53930 Hematocrit (Bld) [Volume fraction] 43.7 % Normal 36.0-46.0 [facility] Ambulatory Comment on above: Performed By: #### 5 8410-2 #### ALEK KENT ([id number]) [facility] (EMC) [address] [place] [address] 91685 Hemoglobin (Bld) [Mass/Vol] 13.5 g/dL Normal 12.0-16.0 [facility] Ambulatory Comment on above: Performed By: #### 5 8410-2 #### ALEK KENT ([id number]) [facility] (EMC) [address] [place] [address] 45219 MCH (RBC) [Entitic mass] 29.5 pg Normal 26.0-34.0 [facility] Ambulatory Comment on above: Performed By: #### 5 8410-2 #### ALEK KENT ([id number]) [facility] (EMC) [address] [place] [address] 30617 MCHC (RBC) [Mass/Vol] 30.9 g/dL Low 32.0-36.0 [facility] Ambulatory Comment on above: Performed By: #### 5 8410-2 #### ALEK KENT ([id number]) [facility] (EMC) [address] [place] [address] 47404 MCV (RBC) [Entitic vol] 95 fL Normal 80-100 [facility] Ambulatory Comment on above: Performed By: #### 5 8410-2 #### ALEK KENT ([id number]) [facility] (EMC) [address] [place] [address] 02973 Nucleated RBC/100 WBC (Bld) [Ratio] 0.0 /100 WBCs Normal 0.0-0.0 [facility] Ambulatory Comment on above: Performed By: #### 5 8410-2 #### ALEK KENT ([id number]) [facility] (EMC) [address] [place] [address] 18724 Platelets (Bld) [#/Vol] 244 x10*3/uL Normal 150-450 [facility] Ambulatory Comment on above: Performed By: #### 5 8410-2 #### ALEK KENT ([id number]) [facility] (EMC) [address] [place] [address] 48576 RBC (Bld) [#/Vol] 4.58 x10*6/uL Normal 4.00-5.20 [facility] Ambulatory Comment on above: Performed By: #### 5 8410-2 #### ANAIBJOHN AILYN PULIDO ([id number]) [facility] (EMC) [address] [place] [address] WBC (Bld) [#/Vol] 6.4 x10*3/uL Normal 4.4-11.3 [facility] Comment on above: Performed By: #### 5 8410-2 #### JUANIBJOHN AILYN PULIDO ([id number]) [facility] (EMC) [address] [place] [address] ANGIO CHEST PRE PULMONARY VEIN ABLATION PLANNING GATEDon 04-28-2025 CT ANGIO CHEST PRE PULMONARY VEIN ABLATION PLANNING GATED Interpreted By: Katie Walden, ADDENDUM: Technical: The following is to serve as an over-read for the contrast-enhanced cardiac CT, to evaluate the extravascular structures. Contiguous axial CT sections are performed from level the aris to the upper abdomen following the bolus administration of 70 cc of intravenous Omnipaque 350. Findings: There is faint ground-glass density in the lung bases with superimposed linear areas of atelectasis. There is no sign of pathologic lymph node enlargement. There are small bilateral pleural effusions. There is no pericardial effusion. There is a small hiatal hernia. There is some wall thickening of the lower esophagus. Images through the upper abdomen demonstrate left renal atrophy with diminished areas of enhancement in the visualized portions of the left kidney of uncertain chronicity. The visualized osseous structures are intact. Impression: Faint ground-glass density in the lung bases could reflect mild edema. There superimposed linear areas of bibasilar atelectasis. Small bilateral pleural effusions. Small hiatal hernia. There is wall thickening of the lower esophagus. Small left kidney with areas of diminished enhancement of uncertain chronicity. Correlate with any clinical findings of renal infarct. Signed by: Katie Walden 05/02/2025 10:52 PM -------- ORIGINAL REPORT -------- Dictation workstation: [id number] Interpreted By: Katie Asencio, STUDY: CT ANGIO CHEST PRE PULMONARY VEIN ABLATION PLANNING GATED; 05/01/2025 3:37 pm INDICATION: Signs/Symptoms:AFIB. with history of atrial fibrillation, being evaluated for radiofrequency ablation of pulmonary veins. Cardiac CTA is requested for evaluation of the pulmonary venous anatomy, including ostial measurements. COMPARISON: None. ACCESSION NUMBER(S): [id number] ORDERING CLINICIAN: MAXWELL MEDRANO TECHNIQUE: Multi-detector CT technology was employed (Isak iCT 256-slice scanner). Axial, sequential imaging with prospective ECG-triggering (40 % R-R interval ) was performed of the chest following the intravenous administration of contrast material. A low-osmolar contrast agent was used 70 mL of Omnipaque 350. For optimization of anatomic evaluation, multiplanar reconstruction, maximum intensity projections, and advanced 3-D off-line postprocessing were performed on a dedicated stand-alone workstation under the direct supervision of the interpreting physician. CT Dose-Length Product (DLP): 1104 mGy/cm CT Dose Reduction Employed: Yes (Prospective triggering, iterative reconstruction) FINDINGS: Potential study limitations: None. CARDIOVASCULAR INCLUDING MULTIPLANAR REFORMATIONS: CARDIAC CHAMBERS: Normal atrioventricular and ventriculoarterial concordance. LEFT ATRIUM: Left atrium is dilated 4.2 cm. There is no evidence of thrombus in the left atrium or left atrial appendage. PULMONARY VEINS: There is normal anatomy of the pulmonary veins, with four ostia, namely the right superior, right inferior, left superior and left inferior. There is no anomalous pulmonary venous drainage. There is no evidence of pulmonary venous stenosis. PULMONARY OSTIAL MEASUREMENTS: Left superior pulmonary vein 23 x 19 mm Left inferior pulmonary vein 18 x 17 mm Right superior pulmonary vein 21 x 17 mm Right inferior pulmonary vein 21 x 19 mm PULMONARY ARTERIES: The central pulmonary arteries appear normal. THORACIC AORTA: The thoracic aorta is normal in course, caliber, and contour. The sinotubular junction is preserved. There is no evidence for acute aortic pathology, such as dissection, intramural hematoma, or contained rupture. The aortic arch is not included in this study. SYSTEMIC VEINS: Normal systemic venous and pulmonary venous return. The SVC and IVC are of normal caliber. AORTIC VALVE: The aortic valve is trileafletin morphology. No thickening/calcification. MITRAL VALVE: No thickening/calcification. CORONARY ARTERIES: The study is not optimized for the evaluation of coronary arteries. Normal origin of coronary arteries. No significant atherosclerotic or stenotic disease. CORONARY VEINS: The coronary sinus drains normally into the right atrium. PERICARDIUM: There is no pericardial effusion or thickening. IMPRESSION: 1. There is normal anatomy of the pulmonary veins, with four ostia, namely the right superior, right inferior, left superior and left inferior. 2. No evidence of pulmonary venous stenosis. 3. PULMONARY OSTIAL MEASUREMENTS: Left superior pulmonary vein 23 x 19 mm Left inferior pulmonary vein 18 x 17 mm Right superior pulmonary vein 21 x 17 mm Right inferior pulmonary vein 21 x 19 mm 4. Left atrium is enlarged. There is on evidence of left atrial/left atrial appendage thrombus. Reading Laser Engineer: Dr. Ramirez (more content not included)... Normal [facility] Coagulation tissue factor in ducedon 04-28-2025 PT Coag (PPP) [Time] 16.3 s High 9.8-12.4 [facility] Ambulatory Comment on above: Performed By: #### 5 902-2 #### ALEK KENT ([id number]) [facility] (C) [address] [place] [address] Creatinineon 04-28-2025 Creatinine [Mass/Vol] 1.69 mg/dL High 0.50-1.05 [facility] Comment on above: Performed By: #### 2 160-0 #### ROXY ARORA ([id number]) [facility]) [address] [place] [address] Creatinine [Mass/Vol]on Glomerular filtration rate 30 mL/min/1.73m*2 Low >60 [facility] Comment on above: Result Comment: Calc ulations of estimated GFR are performed using the 2020 CKD-EPI Study Refit equation without the race variable for the IDMS-Traceable creatinine methods. https://jasn.asnjournals.org/content/early//ASN.44132 95841 Performed By: #### 2 160-0 #### ROXY ARORA ([id number]) [facility] ([facility]) [address] [place] [address] PT Coag (PPP) [Time]on 04-28 INR Coag (PPP) [Relative time] 1.5 High 0.9-1.1 [facility] Ambulatory Comment on above: Performed By: #### 5 902-2 #### ALEK KENT ([id number]) [facility] (EMC) [address] [place], [place] [id number] Cardiac Device Check - Remot davin 01-30-2025 [facility] Work Phone: Radiology Study observation (narrative) [facility] Work Phone: Alanine aminotransferase [En zymatic [...] Basophils (Bld) [#/Vol] Automated basophil count 0.0-0.2 [facility] Basophils/100 WBC Auto (Bld) Ordered By: Ángel Minaya on 01-23-2025 Basophils/100 WBC (Bld) Automated basophil % . [facility] Benzodiazepines Screen Ql (U )Ordered By: Ángel Minaya on 01-23-2025 Benzodiazepines Ql (U) Benzodiazepines [ Presence] in Urine by Screen method Negative [facility] [...] (Bld) [#/Vol] 0.1 10*3/uL Normal 0.0-0.2 [facility] Comment on above: Result Comment: PERF ORMED BY: [address] [place] [address] PATHOLOGIST INSURANCE SALES MANAGER REENA JIN M.D. Performed By: #### P HOS, MG, CMP, CBC ####[address] Basophils/100 WBC (Bld) 0.9 % Normal . [facility] Comment on above: Performed By: #### P HOS, MG, CMP, CBC ####[address] Eosinophils (Bld) [#/Vol] 0.2 10*3/uL Normal 0.0-0.45 [facility] Comment on above: Performed By: #### P HOS, MG, CMP, CBC ####[address] Eosinophils/100 WBC (Bld) 2.5 % Normal . [facility] Comment on above: Performed By: #### P HOS, MG, CMP, CBC ####[address] Erythrocyte distribution width (RBC) [Ratio] 13.9 % Normal 11.9-15.3 [facility] Comment on above: Performed By: #### P HOS, MG, CMP, CBC ####[address] Hematocrit (Bld) [Volume fraction] 36.5 % Normal 34.0-46.4 [facility] Comment on above: Performed By: #### P HOS, MG, CMP, CBC ####[address] Hemoglobin (Bld) [Mass/Vol] 12.4 g/dL Normal 11.8-15.4 [facility] Comment on above: Performed By: #### P HOS, MG, CMP, CBC ####[address] Lymphocytes (Bld) [#/Vol] 1.1 10*3/uL Normal 1.00-4.8 [facility] Comment on above: Performed By: #### P HOS, MG, CMP, CBC ####[address] Lymphocytes/100 WBC (Bld) 15.4 % Normal . [facility] Comment on above: Performed By: #### P HOS, MG, CMP, CBC ####[address] MCH (RBC) [Entitic mass] 30.5 pg Normal 24.7-34.3 [facility] Comment on above: Performed By: #### P HOS, MG, CMP, CBC ####[address] MCV (RBC) [Entitic vol] 89.8 fL Normal 80-100 [facility] Comment on above: Performed By: #### P HOS, MG, CMP, CBC ####[address] Mean Corpuscular HGB Conc 34.0 g/dL Normal 32.0-35.0 [facility] Comment on above: Performed By: #### P HOS, MG, CMP, CBC ####[address] Monocytes (Bld) [#/Vol] 0.5 10*3/uL Normal 0.0-0.8 [facility] Comment on above: Performed By: #### P HOS, MG, CMP, CBC ####[address] Monocytes/100 WBC (Bld) 23.36 % High 0.00-20.00 [facility] Comment on above: Result Comment: For adults in ED, MDW > 20.0 may be associated with a higher risk of sepsis during the first 12 hrs of hospital admission Performed By: #### P HOS, MG, CMP, CBC ####[address] Monocytes/100 WBC (Bld) 7.6 % Normal . [facility] Comment on above: Performed By: #### P HOS, MG, CMP, CBC ####[address] Neutrophils (Bld) [#/Vol] 5.2 10*3/uL Normal 1.8-7.7 [facility] Comment on above: Performed By: #### P HOS, MG, CMP, CBC ####[address] Neutrophils/100 WBC (Bld) 73.6 % Normal . [facility] Comment on above: Performed By: #### P HOS, MG, CMP, CBC ####[address] NRBC% 0.1 /100{WBC} Normal 0-0.5 [facility] Comment on above: Performed By: #### P HOS, MG, CMP, CBC ####[address] Platelet mean volume (Bld) [Entitic vol] 9.1 fL Normal 6.3-10.7 [facility] Comment on above: Performed By: #### P HOS, MG, CMP, CBC ####[address] Platelets (Bld) [#/Vol] 224 10*3/uL Normal 150-450 [facility] Comment on above: Performed By: #### P HOS, MG, CMP, CBC ####[address] RBC (Bld) [#/Vol] 4.06 10*6/uL Normal 3.60-5.00 [facility] Comment on above: Performed By: #### P HOS, MG, CMP, CBC ####[address] WBC (Bld) [#/Vol] 7.0 10*3/uL Normal 3.8-11.6 [facility] Comment on above: Performed By: #### P HOS, MG, CMP, CBC ####[address] [address] [facility] Comprehensive Metabolic Pane violeta 01-23-2025 Albumin [Mass/Vol] 3.6 g/dL Normal 3.5-5.7 [facility] Comment on above: Performed By: #### P HOS, MG, CMP, CBC ####[place] [id number] [facility] Albumin/Globulin [Mass ratio] 1.4 {ratio} Normal [facility] Comment on above: Performed By: #### P HOS, MG, CMP, CBC ####[place] [id number] [facility] ALP [Catalytic activity/Vol] 71 U/L Normal 34-104 [facility] Comment on above: Performed By: #### P HOS, MG, CMP, CBC ####[place] [id number] [facility] ALT [Catalytic activity/Vol] 20 U/L Normal 7-52 [facility] Comment on above: Performed By: #### P HOS, MG, CMP, CBC ####[place] [id number] [facility] Anion gap [Moles/Vol] 11.4 mmol/L Normal 6.0-15.0 [facility] Comment on above: Performed By: #### P HOS, MG, CMP, CBC ####[place] [id number] [facility] AST [Catalytic activity/Vol] 24 U/L Normal 13-39 [facility] Comment on above: Performed By: #### P HOS, MG, CMP, CBC ####[place] [id number] [facility] Bilirubin [Mass/Vol] 1.0 mg/dL Normal 0.3-1.0 [facility] Comment on above: Performed By: #### P HOS, MG, CMP, CBC ####[place] [id number] [facility] Calcium [Mass/Vol] 8.6 mg/dL Normal 8.6-10.3 [facility] Comment on above: Performed By: #### P HOS, MG, CMP, CBC ####[address] Chloride [Moles/Vol] 105 mmol/L Normal 98-107 [facility] Comment on above: Performed By: #### P HOS, MG, CMP, CBC ####[address] CO2 [Moles/Vol] 27.3 mmol/L Normal 21.0-31.0 [facility] Comment on above: Performed By: #### P HOS, MG, CMP, CBC ####[address] Creatinine [Mass/Vol] 1.20 mg/dL Normal 0.60-1.20 [facility] Comment on above: Performed By: #### P HOS, MG, CMP, CBC ####[address] Creatinine Clr Calc Pharmacy 28.86 Normal [facility] Comment on above: Performed By: #### P HOS, MG, CMP, CBC ####[address] Estimated GFR 45.195 mL/Min Normal [facility] Comment on above: Performed By: #### P HOS, MG, CMP, CBC ####[address] Globulin (S) [Mass/Vol] 2.5 g/dL Normal [facility] Comment on above: Performed By: #### P HOS, MG, CMP, CBC ####[address] Glucose [Mass/Vol] 85 mg/dL Normal 70-100 [facility] Comment on above: Result Comment: [place] Glucose Reference Range is dependent on time and content of last meal. Glucose of more than 200 mg/dL in a nonstressed, ambulatory subject supports the diagnosis of Diabetes Mellitus. ADA recommended reference range Performed By: #### P HOS, MG, CMP, CBC ####[place] [id number] [facility] Potassium [Moles/Vol] 3.7 mmol/L Normal 3.5-5.1 [facility] Comment on above: Performed By: #### P HOS, MG, CMP, CBC ####[address] [address] [facility] Protein [Mass/Vol] 6.1 g/dL Low 6.4-8.9 [facility] Comment on above: Performed By: #### P HOS, MG, CMP, CBC ####[place] [id number] [facility] Sodium [Moles/Vol] 140 mmol/L Normal 136-145 [facility] Comment on above: Performed By: #### P HOS, MG, CMP, CBC ####[place] [id number] [facility] Urea nitrogen [Mass/Vol] 25 mg/dL Normal 7-25 [facility] Comment on above: Performed By: #### P HOS, MG, CMP, CBC ####[place] [id number] [facility] Creatinine [Mass/volume] in Serum or PlasmaOrdered By: Ángel Minaya on 01-23-2025 Creatinine [Mass/Vol] Creatinine [Mass/v olume] in Serum or Plasma 0.60-1.20 [facility] Drug Screen,Urineon 01-24-20 25 Amphetamine Screen,Urine Negative Normal Negative [facility] Comment on above: Performed By: #### U RDS ####[address] [address] [facility] Barbiturate Screen,Urine Negative Normal Negative [facility] Comment on above: Performed By: #### U RDS ####[address] [address] [facility] Benzodiazepines Screen,Urine Negative Normal Negative [facility] Comment on above: Performed By: #### U RDS ####[place] [id number] [facility] Cannabinoid Screen,Urine Negative Normal Negative [facility] Comment on above: Result Comment: Thes e are unconfirmed results and should not be used for legal purposes. Drug Cut-Off Concentration: AMPH 1000 ng/mL RAMESH 200 ng/mL ANAI 200 ng/mL COCM 300 ng/mL OP 300 ng/mL PCP 25 ng/mL THC 20 ng/mL PERFORMED BY: [facility] [address] [place] [address] PATHOLOGIST INSURANCE SALES MANAGER REENA JIN M.D. Performed By: #### U RDS ####[place] [id number] Cocaine Screen,Urine Negative Normal Negative [facility] Comment on above: Performed By: #### U RDS ####[address] Opiate Screen,Urine Positive High Negative [facility] Comment on above: Performed By: #### U RDS ####[address] Phencyclidine Screen,Urine Negative Normal Negative [facility] Comment on above: Performed By: #### U RDS ####[address] Eosinophils Auto (Bld) [#/Vo l]Ordered By: Ángel Minaya on 01-23-2025 Eosinophils (Bld) [#/Vol] Automated eosinophil count 0.0-0.45 [facility] Eosinophils/100 WBC Auto (Bl d)Ordered By: Ángel [...] Magnesium [Mass/Vol] 2.0 mg/dL Normal 1.9-2.7 [facility] Comment on above: Result Comment: PERF ORMED BY: [facility] [address] [place] [id number] PATHOLOGIST INSURANCE SALES MANAGER REENA JIN M.D. Performed By: #### P HOS, MG, CMP, CBC ####[facility] [place] [address] [facility] Magnesium [Mass/volume] in S vaughn or PlasmaOrdered [...] [facility] No Panel InformationOrdered By: Ángel Minaya on [...] Phosphate [Mass/Vol] 4.4 mg/dL Normal 2.5-4.5 [facility] Comment on above: Performed By: #### P HOS, MG, CMP, CBC ####[facility] [address] [place] [id number] [facility] Platelet mean volume Auto (B ld) [Entitic [...] (Bld) [Mass/Vol] 192.0 pg/mL High 5-100 [facility] Comment on above: Result Comment: PERF ORMED BY: [facility] [address] [place] [id number] PATHOLOGIST INSURANCE SALES MANAGER REENA JIN M.D. Performed By: #### P T, CK, HS TROP, PTT, CBC, BNP, CMP, MG ####[facility] [place] [address] [facility] Basophils Auto (Bld) [#/Vol] Ordered By: Maggie Rod on 01-22-2025 Basophils (Bld) [#/Vol] Automated basophil count 0.0-0.2 [facility] Basophils/100 WBC Auto (Bld) Ordered By: [...] (Bld) [#/Vol] 0.1 10*3/uL Normal 0.0-0.2 [facility] Comment on above: Result Comment: PERF ORMED BY: [facility] [address] [place] [address] PATHOLOGIST INSURANCE SALES MANAGER REENA JIN M.D. Performed By: #### P T, CK, HS TROP, PTT, CBC, BNP, CMP, MG ####[address] Basophils/100 WBC (Bld) 1.2 % Normal . [facility] Comment on above: Performed By: #### P T, CK, HS TROP, PTT, CBC, BNP, CMP, MG ####[address] Eosinophils (Bld) [#/Vol] 0.2 10*3/uL Normal 0.0-0.45 [facility] Comment on above: Performed By: #### P T, CK, HS TROP, PTT, CBC, BNP, CMP, MG ####[address] Eosinophils/100 WBC (Bld) 2.5 % Normal . [facility] Comment on above: Performed By: #### P T, CK, HS TROP, PTT, CBC, BNP, CMP, MG ####[address] Erythrocyte distribution width (RBC) [Ratio] 14.4 % Normal 11.9-15.3 [facility] Comment on above: Performed By: #### P T, CK, HS TROP, PTT, CBC, BNP, CMP, MG ####[address] Hematocrit (Bld) [Volume fraction] 38.5 % Normal 34.0-46.4 [facility] Comment on above: Performed By: #### P T, CK, HS TROP, PTT, CBC, BNP, CMP, MG ####[address] Hemoglobin (Bld) [Mass/Vol] 13.3 g/dL Normal 11.8-15.4 [facility] Comment on above: Performed By: #### P T, CK, HS TROP, PTT, CBC, BNP, CMP, MG ####[address] Lymphocytes (Bld) [#/Vol] 1.4 10*3/uL Normal 1.00-4.8 [facility] Comment on above: Performed By: #### P T, CK, HS TROP, PTT, CBC, BNP, CMP, MG ####[address] Lymphocytes/100 WBC (Bld) 17.7 % Normal . [facility] Comment on above: Performed By: #### P T, CK, HS TROP, PTT, CBC, BNP, CMP, MG ####[address] MCH (RBC) [Entitic mass] 30.9 pg Normal 24.7-34.3 [facility] Comment on above: Performed By: #### P T, CK, HS TROP, PTT, CBC, BNP, CMP, MG ####[address] MCV (RBC) [Entitic vol] 89.4 fL Normal 80-100 [facility] Comment on above: Performed By: #### P T, CK, HS TROP, PTT, CBC, BNP, CMP, MG ####[address] Mean Corpuscular HGB Conc 34.6 g/dL Normal 32.0-35.0 [facility] Comment on above: Performed By: #### P T, CK, HS TROP, PTT, CBC, BNP, CMP, MG ####[address] Monocytes (Bld) [#/Vol] 0.6 10*3/uL Normal 0.0-0.8 [facility] Comment on above: Performed By: #### P T, CK, HS TROP, PTT, CBC, BNP, CMP, MG ####[address] Monocytes/100 WBC (Bld) 20.85 % High 0.00-20.00 [facility] Comment on above: Result Comment: For adults in ED, MDW > 20.0 may be associated with a higher risk of sepsis during the first 12 hrs of hospital admission Performed By: #### P T, CK, HS TROP, PTT, CBC, BNP, CMP, MG ####[address] Monocytes/100 WBC (Bld) 7.9 % Normal . [facility] Comment on above: Performed By: #### P T, CK, HS TROP, PTT, CBC, BNP, CMP, MG ####[address] Neutrophils (Bld) [#/Vol] 5.5 10*3/uL Normal 1.8-7.7 [facility] Comment on above: Performed By: #### P T, CK, HS TROP, PTT, CBC, BNP, CMP, MG ####[address] Neutrophils/100 WBC (Bld) 70.7 % Normal . [facility] Comment on above: Performed By: #### P T, CK, HS TROP, PTT, CBC, BNP, CMP, MG ####[address] NRBC% 0.2 /100{WBC} Normal 0-0.5 [facility] Comment on above: Performed By: #### P T, CK, HS TROP, PTT, CBC, BNP, CMP, MG ####[address] Platelet mean volume (Bld) [Entitic vol] 8.6 fL Normal 6.3-10.7 [facility] Comment on above: Performed By: #### P T, CK, HS TROP, PTT, CBC, BNP, CMP, MG ####[address] Platelets (Bld) [#/Vol] 240 10*3/uL Normal 150-450 [facility] Comment on above: Performed By: #### P T, CK, HS TROP, PTT, CBC, BNP, CMP, MG ####[address] RBC (Bld) [#/Vol] 4.31 10*6/uL Normal 3.60-5.00 [facility] Comment on above: Performed By: #### P T, CK, HS TROP, PTT, CBC, BNP, CMP, MG ####[address] WBC (Bld) [#/Vol] 7.8 10*3/uL Normal 3.8-11.6 [facility] Comment on above: Performed By: #### P T, CK, HS TROP, PTT, CBC, BNP, CMP, MG ####[address] Comprehensive Metabolic Pane violeta 01-22-2025 Albumin [Mass/Vol] 4.0 g/dL Normal 3.5-5.7 [facility] Comment on above: Performed By: #### P T, CK, HS TROP, PTT, CBC, BNP, CMP, MG ####[address] Albumin/Globulin [Mass ratio] 1.4 {ratio} Normal [facility] Comment on above: Performed By: #### P T, CK, HS TROP, PTT, CBC, BNP, CMP, MG ####[address] ALP [Catalytic activity/Vol] 87 U/L Normal 34-104 [facility] Comment on above: Performed By: #### P T, CK, HS TROP, PTT, CBC, BNP, CMP, MG ####[address] ALT [Catalytic activity/Vol] 19 U/L Normal 7-52 [facility] Comment on above: Performed By: #### P T, CK, HS TROP, PTT, CBC, BNP, CMP, MG ####[address] Anion gap [Moles/Vol] 12.2 mmol/L Normal 6.0-15.0 [facility] Comment on above: Performed By: #### P T, CK, HS TROP, PTT, CBC, BNP, CMP, MG ####[address] AST [Catalytic activity/Vol] 23 U/L Normal 13-39 [facility] Comment on above: Performed By: #### P T, CK, HS TROP, PTT, CBC, BNP, CMP, MG ####[address] Bilirubin [Mass/Vol] 1.2 mg/dL High 0.3-1.0 [facility] Comment on above: Performed By: #### P T, CK, HS TROP, PTT, CBC, BNP, CMP, MG ####[address] Calcium [Mass/Vol] 9.2 mg/dL Normal 8.6-10.3 [facility] Comment on above: Performed By: #### P T, CK, HS TROP, PTT, CBC, BNP, CMP, MG ####[address] Chloride [Moles/Vol] 105 mmol/L Normal 98-107 [facility] Comment on above: Performed By: #### P T, CK, HS TROP, PTT, CBC, BNP, CMP, MG ####[address] CO2 [Moles/Vol] 25.7 mmol/L Normal 21.0-31.0 [facility] Comment on above: Performed By: #### P T, CK, HS TROP, PTT, CBC, BNP, CMP, MG ####[address] Creatinine [Mass/Vol] 1.13 mg/dL Normal 0.60-1.20 [facility] Comment on above: Performed By: #### P T, CK, HS TROP, PTT, CBC, BNP, CMP, MG ####[address] Creatinine Clr Calc Pharmacy 30.77 Normal [facility] Comment on above: Performed By: #### P T, CK, HS TROP, PTT, CBC, BNP, CMP, MG ####[address] Estimated GFR 48.575 mL/Min Normal [facility] Comment on above: Performed By: #### P T, CK, HS TROP, PTT, CBC, BNP, CMP, MG ####[address] Globulin (S) [Mass/Vol] 2.9 g/dL Normal [facility] Comment on above: Performed By: #### P T, CK, HS TROP, PTT, CBC, BNP, CMP, MG ####[address] Glucose [Mass/Vol] 103 mg/dL High 70-100 [facility] Comment on above: Result Comment: [place] Glucose Reference Range is dependent on time and content of last meal. Glucose of more than 200 mg/dL in a nonstressed, ambulatory subject supports the diagnosis of Diabetes Mellitus. ADA recommended reference range Performed By: #### P T, CK, HS TROP, PTT, CBC, BNP, CMP, MG ####[address] Potassium [Moles/Vol] 3.9 mmol/L Normal 3.5-5.1 [facility] Comment on above: Performed By: #### P T, CK, HS TROP, PTT, CBC, BNP, CMP, MG ####[place] [id number] [address] Protein [Mass/Vol] 6.9 g/dL Normal 6.4-8.9 [facility] Comment on above: Performed By: #### P T, CK, HS TROP, PTT, CBC, BNP, CMP, MG ####[place] [address] [address] Sodium [Moles/Vol] 139 mmol/L Normal 136-145 [facility] Comment on above: Performed By: #### P T, CK, HS TROP, PTT, CBC, BNP, CMP, MG ####[place] [address] [address] Urea nitrogen [Mass/Vol] 27 mg/dL High 7-25 [facility] Comment on above: Performed By: #### P T, CK, HS TROP, PTT, CBC, BNP, CMP, MG ####[address] Creatine Kinaseon 01-22-2025 CK [Catalytic activity/Vol] 41 U/L Normal 30-223 [facility] Comment on above: Performed By: #### P T, CK, HS TROP, PTT, CBC, BNP, CMP, MG ####[address] Creatine kinase [Enzymatic a ctivity/volume] in Serum or PlasmaOrdered By: Maggie Rod on 01-22-2025 CK [Catalytic activity/Vol] Creatine kinase [Enzymatic activity/volume] in Serum or Plasma 30- [facility] Creatinine [Mass/volume] in Serum or PlasmaOrdered By: Maggie Rod on 01-22-2025 Creatinine [Mass/Vol] Creatinine [Mass/v olume] in Serum or Plasma 0.60-1.20 [facility] ECG 12 lead ECGon 01-22-2025 ECG 12 lead ECG [facility] [address] [place] [address] [place] [address] Electrocardiograph Report Signed Patient: Austin Golden MR#: [id number] 8 : 1940 Acct:[id number] Age/Sex: 84 / F ADM Date: 01/22/25 Loc: Room: [address] [place] [address] Type: ADM IN Attending Dr: Ángel Minaya [...] Atrial fibrillation Confirmed by MAGGIE ROD MD ([id number]) on 01/23/2025 5:45:25 AM Referred By: Electronically Signed By: MAGGIE ROD MD Transcribed By: MUS Signed By Maggie Rod Jr, MD 0545 Normal [facility] ECG 12 lead ECG [facility] [place] [address] Electrocardiograph Report Signed Patient: Austin Golden MR#: [id number] 8 : 1940 Acct:[id number] Age/Sex: 84 / F ADM Date: 01/22/25 Loc: Room: [address] [place] [address] Type: ADM IN Attending Dr: Ángel Minaya [...] Anterolateral leads Confirmed by MAGGIE ROD MD ([id number]) on 01/23/2025 5:42:20 AM Referred By: Electronically Signed By: MAGGIE ROD MD Transcribed By: MUS Signed By Maggie Rod Jr, MD 0542 Normal [facility] Eosinophils Auto (Bld) [#/Vo l]Ordered By: Maggie Rod on 01-22-2025 Eosinophils (Bld) [#/Vol] Automated eosinophil count 0.0-0.45 [facility] Eosinophils/100 WBC Auto (Bl d)Ordered By: Maggie [...] Magnesium [Mass/Vol] 2.1 mg/dL Normal 1.9-2.7 [facility] Comment on above: Result Comment: PERF ORMED BY: [facility] [address] [place] [address] PATHOLOGIST INSURANCE SALES MANAGER REEAN JIN M.D. Performed By: #### P T, CK, HS TROP, PTT, CBC, BNP, CMP, MG ####[facility] [id number] [place] [id number] [facility] Magnesium [Mass/volume] in S vaughn or PlasmaOrdered [...] Coag (Bld) [Time] 32.2 s Normal 25.1-36.5 [facility] Comment on above: Result Comment: A he matocrit value greater than 55% may lead to inaccurate results in coagulation testing. Patients having hematocrit values >55% require a special collection tube for coagulation studies. Please contact the laboratory at [phone] for redraw instructions. PERFORMED BY: [facility] [address] [place] [address] PATHOLOGIST INSURANCE SALES MANAGER REENA JIN M.D. Performed By: #### P T, CK, HS TROP, PTT, CBC, BNP, CMP, MG ####[facility] [id number] [place] [address] [facility] Platelet mean volume Auto (B ld) [Entitic [...] (PPP) [Relative time] 1.2 {INR} Normal [facility] Comment on above: Result [...] HS TROP, PTT, CBC, BNP, CMP, MG ####[facility] [id number] [place] [id number] [facility] PT Coag (PPP) [Time] 13.9 s High 9.0-12.9 [facility] Comment on above: Result Comment: A he matocrit value greater than 55% may lead to inaccurate results in coagulation testing. Patients having hematocrit values >55% require a special collection tube for coagulation studies. Please contact the laboratory at [phone] for redraw instructions. Performed By: #### P T, CK, HS TROP, PTT, CBC, BNP, CMP, MG ####[facility] [place] [id number] [facility] Prothrombin time (PT)Ordered By: Maggie Rod on 01-22-2025 PT Coag (PPP) [Time] Prothrombin time (PT) High 9.0- 12.9 [facility] Comment on above: A hematocrit value g reater than 55% may lead to inaccurate results in coagulation testing. Patients having hematocrit values >55% require a special collection tube for coagulation studies. Please contact the laboratory at [phone] for redraw instructions. RBC Auto (Bld) [#/Vol]Ordere [...] I High Sensitivity 15 Normal 0-15 [facility] Comment on above: Result Comment: The Troponin units of report have been changed to meet the Chest Pain Accreditation requirement, element EC5.M1l2. Troponin units are changed from pg/ml to ng/L. Also, the decimal is removed and results are in whole numbers. PERFORMED BY: [facility] [address] [place] [address] PATHOLOGIST INSURANCE SALES MANAGER REENA JIN M.D. Performed By: #### P T, CK, HS TROP, PTT, CBC, BNP, CMP, MG ####[facility] Troponin I.cardiac [Mass/vol ume] in Serum [...] By: Jadiel Borja on 01-22-2025 Study report [facility] [address] [place] [address] XRay Report Signed Patient: Ausitn Golden MR#: [id number] : 1940 Acct:[id number] Age/Sex: 84 / F ADM Date: 5 Loc: ER Room: Type: [facility] ER Attending Dr: Copies to: Maggie [...] Borja M.D. 01/22/2025 9:22 PM Dictation Location: [facility]-20 Transcribed By: [facility] 01/22/252121 Dictated By: Juanito Borja DO 01/22/252120 Signed By: 01/22/252121 [facility] XR chest 1V portableon 01-22 XR chest 1V portable [facility] [place] [address] XRay Report Signed Patient: Austin Golden MR#: [id number] 8 : 1940 Acct:[id number] Age/Sex: 84 / F ADM Date: 01/22/25 Loc: Room: [address] [place] [address] Type: DIS INOo Attending Dr: Fahad Kim [...] Borja M.D. 01/22/2025 9:22 PM Dictation Location: [place] [address] Transcribed By: JODI 01/22/252121 Dictated By: Juanito Borja DO 01/22/252120 Signed By: 01/22/252121 Normal [facility] aPTT in Platelet poor plasma [...] coagulation studies. Please contact the laboratory at [phone] for redraw instructions. Basophils Auto (Bld) [#/Vol] on 01-21-2025 Basophils (Bld) [#/Vol] Automated basophil count 0.0-0.1 [facility] Basophils/100 WBC Auto (Bld) on 01-21-2025 [...] 01-21-2025 Albumin [Mass/Vol] 3.3 g/dL Low 3.4-5.0 [facility] ALP [Catalytic activity/Vol] 105 U/L 46-116 [facility] ALT [Catalytic activity/Vol] 33 U/L 14-59 [facility] AST [Catalytic activity/Vol] 30 U/L 15-37 [facility] Bilirubin [Mass/Vol] 1.1 mg/dL High 0.2-1.0 [facility] Calcium [Mass/Vol] 9.0 mg/dL 8.5-10.1 [facility] Chloride [Moles/Vol] 105 mmol/L 98-107 [facility] CO2 [Moles/Vol] 27.9 mmol/L 21.0-32.0 [facility] Creatinine [Mass/Vol] 1.20 mg/dL High 0.55-1.02 [facility] GFR/1.73 sq M.predicted MDRD (S/P/Bld) [Vol rate/Area] 52 mL/min/{1.73_m2} Low >=60 mL/min/1.7 3m 2 [facility] Glucose [Mass/Vol] 98 mg/dL 74-106 [facility] Potassium [Moles/Vol] 4.2 mmol/L 3.5-5.1 [facility] Protein [Mass/Vol] 7.0 g/dL 6.4-8.2 [facility] Sodium [Moles/Vol] 143 mmol/L 136-145 [facility] TSH Qn 5.492 m[IU]/L High 0.358-3.74 0 [...] Eosinophils # (Auto) 0.3 10 3/uL 0.0-0.7 [facility] Immature Granulocyte # (Auto) 0.02 10 3/uL [...] North Assessment AND Plan Noteon 0 01-06-2025 [employer] Authentication Interface Message Text -discussed risks/benefits of surgery--it is high risk due to her age and revisional nature of it -she will talk to her family and let me know if she'd like to proceed with surgery or just live with it Normal [facility] Progress Noteson 01-06-2025 Veneer Jointer Authentication Interface Message Text Phone numbers Preferred Documentation: Mode: Telephone Patient Patient Work Phone: Patient Cell Preferred phone: [phone] Consent: I confirmed patient understanding of the [...] OralBarium Sulfate 1 Tab Route: Oral FINDINGS: Personal Lines Insurance Advisor fluoroscopic spot images of the abdomen: Non-obstructive [...] it Nigel El MD, FACS Normal [facility] Progress Noteson 12-31-2024 [employer] Authentication Interface Message Text This encounter was opened in error. Patient was a No-Show. Please disregard. Called twice, left message to reschedule. Nigel El MD Normal [facility] Assessment AND Plan Noteon 0 12-30-2024 [employer] Authentication Interface Message Text -Evidence of recurrence on imaging/EGD -discussed non-operative vs operative management, patient elects to Normal [facility] Progress Noteson 12-30-2024 [employer]er [employer] Authentication Interface Message Text This encounter was opened in error. Patient was a No-Show. Please disregard. Called many times, left message to reschedule. Nigel El MD Normal [facility] Telephone Encounteron 2024 [employer] Authentication Interface Message Text LVM 12/11 @ 9:30 cancelling appt. Left my number for r/s- SO Normal [facility] Anesthesia Postprocedure Taylor luationon 12-08-2024 Veneer Jointer Authentication Interface Message Text Anesthesia Postoperative Assessment: [...] EVENTS: No notable events documented. 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 Adjustment of her medical [...] were discussed with the patient and/or legal outside energy sales representatives. The risks, benefits and alternatives were reviewed. Questions regarding anesthesia were answered. Patient and/or legal outside energy sales representatives knows such anesthetics and procedures may be performed by Resident physicians, Certified Anesthesiologist Assistants, or Certified Nurse Anesthetists under the supervision of a physician. The patient /or the patient's legal outside energy sales representatives agree with the plan for anesthesia. MHPATFORM Normal The [facility] Anesthesia Transfer Of Careo n 12-08-2024 Veneer Jointer Authentication Interface Message Text Patient taken to [...] report was received. KOMAL Richardson Normal [facility] Blood Attestationon 12-09-19 [employer]inter Authentication Interface Message Text Blood Attestation: ATTESTATION OF INFORMED CONSENT FOR BLOOD: The transfusion of blood and/or blood components were discussed with the patient and/or legal outside energy sales representatives. The risks, benefits and alternatives were reviewed. Questions regarding blood transfusions were answered. The patient /or the patient's legal outside energy sales representatives agree with the plan for transfusion of blood and/or blood components. Normal [facility] H AND Rudolph 12-08-2024 Veneer Jointer Authentication Interface Message Text [facility] GENERAL SURGERY H AND P Austin Golden [id number] History (HPI) Austin Golden is a 84 [...] Garima Sotomayor MD General Surgery Normal [facility] OP Noteon 12-08-2024 Veneer Jointer Authentication Interface Message Text Austin Golden 84 year old Surgical Contact Serial Number: [id number] Location: ENDO 04 Date: 12/08/2024 COAGULATING OPERATOR: Nigel El MD ATTENDING:Nigel El MD Procedure(s): ESOPHAGOGASTRODUODENOSCOPY WITH ENDOFLIP INSTRUMENT: Scope #[id number] SEDATION: Anesthesia Assisted Pre-Op Diagnosis Codes: * [...] hernia without obstruction or gangrene (Primary Diagnosis) [901940] Hiatal hernia [221357] Gastroesophageal reflux disease without esophagitis [460149] TEE PATH SPECIMEN SENT: no SPECIMEN: None [...] please contact the endoscopy center Mon-Fri 7:30am-4pm [phone] or after hours general [facility] number [phone] Severe abdominal pain that keeps getting worse Fever or any other signs of infection Nausea or vomiting blood Seeing persistent blood coming out of your rectum, with or without stool (some streaks or drops of blood may be expected) For any additional questions, please call the endoscopy center at [phone] Follow-up with your Primary Care Provider CC: Primary Care Provider: No primary care provider on file. PERSON COMPLETING NOTE: Nigel El MD 12/08/2024 at 10:41 AM Patient meets criteria for discharge/transfer: Nigel El MD Normal [facility] Telephone Encounteron 2024 Veneer Jointer Authentication Interface Message Text What is the [...] your last menstrual period? N/a Protocols used: [id number] Normal [facility] [employer] Authentication Interface Message Text What is the need: Situation: returning patients call Background: n/a Assessment: pt unable to provide three identifiers, states she is sick and to call back later. Recommendation: no advise given, RN offered to call 911 for patient, pt declined. Bonnie Clarke RN Normal [facility] [employer] Authentication Interface Message Text Caller: The Pt Symptoms: Pt states that she is not able to keep food down. Patient is requesting a call back from the Triage Nurse. Thank you! Normal [facility] QReca!ation Interface Message Text Pt calling to check the status of her previous message requesting a sooner GI appointment with Dr. Charles Yung. Pt states that she is not able to keep boost or food down, (it keeps coming up). Please return call to Pt at: . Thank you Normal [facility] Telephone Encounteron 2024 Veneer Jointer Primordial Geneticsation Interface Message Text Situation: pt is calling [...] if needed Recommendation: see above Normal [facility] Progress Noteson 11-14-2024 Veneer Jointer Authentication Interface Message Text Documentation: Mode: Telephone Patient Patient Work Phone: Patient Cell Preferred phone: [phone] Consent: I confirmed patient understanding of the [...] Yung MD Division of Gastroenterology AND Hepatology [facility] 11/14/24, 11:49 AM Normal [facility] Telephone Encounteron 2024 Veneer Jointer Authentication Interface Message Text Situation: swallowing difficulties [...] last menstrual period? N/a Protocols used: Swallowing Avowrfnzpy-H-TX Normal [facility] Veneer Jointer Authentication Interface Message Text Caller warm-transferred to [facility] Nurse for Sx/Buzzword situation of: Food getting [...] Caller's Telephone Number: Telephone Information: Normal [facility] Telephone Encounteron 2024 Veneer Jointer Authentication Interface Message Text Phoned patient to [...] resort is to loosen raul. Normal [facility] [employer] Jointer Authentication Interface Message Text Situation: Vomiting. Having worsening sx r/t EGJOO and was told to contact Dr Yung. Background: See nurse triage Assessment: See nurse triage Recommendation: Patient advised to call back with worsening sx. Dispo was ED now vs PCP Triage Page to GI @ [address] Gee who advised [...] your last menstrual period? N/A Protocols used: [id number] Normal [facility] [employer] Jointer Authentication Interface Message Text Symptoms - frequent vomiting Per decision tree transfer to nurse Normal [facility] Hemoglobin [Mass/volume] in Bloodon 10-01-2024 Hemoglobin [...] tic activity/volume] in Serum or PlasmaOrdered By: Gracia Craig on 09-12-2024 ALP [Catalytic activity/Vol] Alkaline phosphatase [Enzymatic activity/volume] in Serum or Plasma 34-104 [facility] Aspartate aminotransferase [ Enzymatic activity/volume] in Serum or PlasmaOrdered By: Gracia Craig on 09-12-2024 AST [Catalytic activity/Vol] Aspartate aminotransferase [Enzymatic activity/volume] in Serum or Plasma 13-39 [facility] B-Type Natriuretic Peptideon 09-12-2024 Natriuretic peptide B (Bld) [Mass/Vol] 170.0 pg/mL High 5-100 [facility] Comment on above: Result Comment: PERF ORMED BY: [facility] [address] [place] [address] PATHOLOGIST INSURANCE SALES MANAGER AKILAH LOMBARDO M.D. Performed By: #### P T, CMP, BNP, HS TROP, CK, CBC ####[facility] [id number] [place] [address] [facility] Basophils Auto (Bld) [#/Vol] Ordered By: Gracia Craig on 09-12-2024 Basophils (Bld) [#/Vol] Automated basophil count 0.0-0.2 [facility] Basophils/100 WBC Auto (Bld) Ordered By: [...] RSV RNA by RT-PCR COVID19 Blank Space -- Reference: Negative COVID19 Blank Space -- Cepheid Disclaimer The Cepheid Xpert Xpress CoV-2/Flu/RSV [...] or Cepheid Disclaimer revoked sooner. PERFORMED BY: [place] [address] PATHOLOGIST INSURANCE SALES MANAGER AKILAH LOMBARDO M.D. Normal [facility] Comment on above: Performed By: #### C OVID19 FLU RSV, CEPHEID NEG ####[facility] [id number] [place] [address] [facility] CT chest wo [facility] 09-12-[address] [facility] [place] [address] [place] [address] CT Scan Report Signed Patient: Austin Golden MR#: [id number] 8 : 1940 Acct:[id number] Age/Sex: 83 / F ADM Date: 09/12/24 Loc: ER Room: Type: [facility] ER Attending Dr: Copies to: Gracia [...] Thomas Haskins M.D.09/12/2024 12:37 PM Dictation Location: [place] [address] Transcribed By: [facility] 09/12/24 1237 Dictated By: Thomas Haskins II, MD 09/12/24 1233 Signed By: 09/12/24 1237 Normal [facility] Calcium [Mass/volume] in Ser um [...] Ql (Unsp spec) Negative Normal Negative [facility] Comment on above: Result Comment: This is a duplicate Cepheid Xpert Xpress CoV-2/Flu/RSV Plus RNA by RT-PCR result to be used for statistical tracking purpose only. PERFORMED BY: [place] [address] PATHOLOGIST INSURANCE SALES MANAGER AKILAH LOMBARDO M.D. Performed By: #### C OVID19 FLU RSV, CEPHEID NEG ####[place] [address] [place] [address] [place] Chloride [Moles/volume] in S vaughn or PlasmaOrdered By: Gracia Craig on 09-12-2024 Chloride [Moles/Vol] Chloride [Moles/vol ume] in Serum or Plasma 98-107 [facility] Complete Blood Count Auto Di ffon 09-12-2024 Basophils (Bld) [#/Vol] 0.0 10*3/uL Normal 0.0-0.2 [facility] Comment on above: Result Comment: PERF ORMED BY: [facility] [address] [place] [id number] PATHOLOGIST INSURANCE SALES MANAGER AKILAH LOMBARDO M.D. Performed By: #### P T, CMP, BNP, HS TROP, CK, CBC ####[place] [address] [place] [address] [facility] Basophils/100 WBC (Bld) 0.2 % Normal . [facility] Comment on above: Performed By: #### P T, CMP, BNP, HS TROP, CK, CBC ####[place] [address] [place] [address] [facility] Eosinophils (Bld) [#/Vol] 0.2 10*3/uL Normal 0.0-0.45 [facility] Comment on above: Performed By: #### P T, CMP, BNP, HS TROP, CK, CBC ####[address] Eosinophils/100 WBC (Bld) 2.0 % Normal . [facility] Comment on above: Performed By: #### P T, CMP, BNP, HS TROP, CK, CBC ####[address] Erythrocyte distribution width (RBC) [Ratio] 15.1 % Normal 11.9-15.3 [facility] Comment on above: Performed By: #### P T, CMP, BNP, HS TROP, CK, CBC ####[address] Hematocrit (Bld) [Volume fraction] 49.4 % Significant change up 34.0-46.4 [facility] Comment on above: Performed By: #### P T, CMP, BNP, HS TROP, CK, CBC ####[address] Hemoglobin (Bld) [Mass/Vol] 16.2 g/dL High 11.8-15.4 [facility] Comment on above: Performed By: #### P T, CMP, BNP, HS TROP, CK, CBC ####[address] Lymphocytes (Bld) [#/Vol] 0.9 10*3/uL Low 1.00-4.8 [facility] Comment on above: Performed By: #### P T, CMP, BNP, HS TROP, CK, CBC ####[address] Lymphocytes/100 WBC (Bld) 11.4 % Normal . [facility] Comment on above: Performed By: #### P T, CMP, BNP, HS TROP, CK, CBC ####[address] MCH (RBC) [Entitic mass] 30.6 pg Normal 24.7-34.3 [facility] Comment on above: Performed By: #### P T, CMP, BNP, HS TROP, CK, CBC ####[address] MCV (RBC) [Entitic vol] 93.2 fL Normal 80-100 [facility] Comment on above: Performed By: #### P T, CMP, BNP, HS TROP, CK, CBC ####[address] Mean Corpuscular HGB Conc 32.9 g/dL Normal 32.0-35.0 [facility] Comment on above: Performed By: #### P T, CMP, BNP, HS TROP, CK, CBC ####[address] Monocytes (Bld) [#/Vol] 0.5 10*3/uL Normal 0.0-0.8 [facility] Comment on above: Performed By: #### P T, CMP, BNP, HS TROP, CK, CBC ####[address] Monocytes/100 WBC (Bld) 16.23 % Normal 0.00-20.00 [facility] Comment on above: Performed By: #### P T, CMP, BNP, HS TROP, CK, CBC ####[address] Monocytes/100 WBC (Bld) 5.7 % Normal . [facility] Comment on above: Performed By: #### P T, CMP, BNP, HS TROP, CK, CBC ####[address] Neutrophils (Bld) [#/Vol] 6.5 10*3/uL Normal 1.8-7.7 [facility] Comment on above: Performed By: #### P T, CMP, BNP, HS TROP, CK, CBC ####[address] Neutrophils/100 WBC (Bld) 80.7 % Normal . [facility] Comment on above: Performed By: #### P T, CMP, BNP, HS TROP, CK, CBC ####[address] NRBC% 0.6 /100{WBC} High 0-0.5 [facility] Comment on above: Performed By: #### P T, CMP, BNP, HS TROP, CK, CBC ####[address] Platelet mean volume (Bld) [Entitic vol] 8.4 fL Normal 6.3-10.7 [facility] Comment on above: Performed By: #### P T, CMP, BNP, HS TROP, CK, CBC ####[address] Platelets (Bld) [#/Vol] 196 10*3/uL Normal 150-450 [facility] Comment on above: Performed By: #### P T, CMP, BNP, HS TROP, CK, CBC ####[address] RBC (Bld) [#/Vol] 5.30 10*6/uL High 3.60-5.00 [facility] Comment on above: Performed By: #### P T, CMP, BNP, HS TROP, CK, CBC ####[address] WBC (Bld) [#/Vol] 8.0 10*3/uL Normal 3.8-11.6 [facility] Comment on above: Performed By: #### P T, CMP, BNP, HS TROP, CK, CBC ####[address] Comprehensive Metabolic Pane violeta 09-12-2024 Albumin [Mass/Vol] 4.0 g/dL Normal 3.5-5.7 [facility] Comment on above: Performed By: #### P T, CMP, BNP, HS TROP, CK, CBC ####[address] Albumin/Globulin [Mass ratio] 1.4 {ratio} Normal [facility] Comment on above: Performed By: #### P T, CMP, BNP, HS TROP, CK, CBC ####[address] ALP [Catalytic activity/Vol] 90 U/L Normal 34-104 [facility] Comment on above: Performed By: #### P T, CMP, BNP, HS TROP, CK, CBC ####[address] ALT [Catalytic activity/Vol] 20 U/L Normal 7-52 [facility] Comment on above: Performed By: #### P T, CMP, BNP, HS TROP, CK, CBC ####[address] Anion gap [Moles/Vol] 14.8 mmol/L Normal 6.0-15.0 [facility] Comment on above: Performed By: #### P T, CMP, BNP, HS TROP, CK, CBC ####[address] AST [Catalytic activity/Vol] 28 U/L Normal 13-39 [facility] Comment on above: Performed By: #### P T, CMP, BNP, HS TROP, CK, CBC ####[address] Bilirubin [Mass/Vol] 1.0 mg/dL Normal 0.3-1.0 [facility] Comment on above: Performed By: #### P T, CMP, BNP, HS TROP, CK, CBC ####[address] Calcium [Mass/Vol] 9.5 mg/dL Normal 8.6-10.3 [facility] Comment on above: Performed By: #### P T, CMP, BNP, HS TROP, CK, CBC ####[address] Chloride [Moles/Vol] 105 mmol/L Normal 98-107 [facility] Comment on above: Performed By: #### P T, CMP, BNP, HS TROP, CK, CBC ####[place] [address] CO2 [Moles/Vol] 23.8 mmol/L Normal 21.0-31.0 [facility] Comment on above: Performed By: #### P T, CMP, BNP, HS TROP, CK, CBC ####[address] Creatinine [Mass/Vol] 1.22 mg/dL High 0.60-1.20 [facility] Comment on above: Performed By: #### P T, CMP, BNP, HS TROP, CK, CBC ####[address] Creatinine Clr Calc Pharmacy 30.27 Normal [facility] Comment on above: Result Comment: PERF ORMED BY: [place] [address] PATHOLOGIST INSURANCE SALES MANAGER AKILAH LOMBARDO M.D. Performed By: #### P T, CMP, BNP, HS TROP, CK, CBC ####[address] Estimated GFR 44.584 mL/Min Normal [facility] Comment on above: Performed By: #### P T, CMP, BNP, HS TROP, CK, CBC ####[address] Globulin (S) [Mass/Vol] 2.8 g/dL Normal [facility] Comment on above: Performed By: #### P T, CMP, BNP, HS TROP, CK, CBC ####[address] Glucose [Mass/Vol] 110 mg/dL High 70-100 [facility] Comment on above: Result Comment: [place] om Glucose Reference Range is dependent on time and content of last meal. Glucose of more than 200 mg/dL in a nonstressed, ambulatory subject supports the diagnosis of Diabetes Mellitus. ADA recommended reference range Performed By: #### P T, CMP, BNP, HS TROP, CK, CBC ####[address] Potassium [Moles/Vol] 3.6 mmol/L Normal 3.5-5.1 [facility] Comment on above: Performed By: #### P T, CMP, BNP, HS TROP, CK, CBC ####[place] [id number] [facility] Protein [Mass/Vol] 6.8 g/dL Normal 6.4-8.9 [facility] Comment on above: Performed By: #### P T, CMP, BNP, HS TROP, CK, CBC ####[address] Sodium [Moles/Vol] 140 mmol/L Normal 136-145 [facility] Comment on above: Performed By: #### P T, CMP, BNP, HS TROP, CK, CBC ####[address] Urea nitrogen [Mass/Vol] 29 mg/dL High 7-25 [facility] Comment on above: Performed By: #### P T, CMP, BNP, HS TROP, CK, CBC ####[place] [id number] [facility] Creatine Kinaseon 09-12-2024 CK [Catalytic activity/Vol] 53 U/L Normal [facility] Comment on above: Performed By: #### P T, CMP, BNP, HS TROP, CK, CBC ####[place] [id number] [facility] Creatine kinase [Enzymatic a ctivity/volume] in [...] lead ECGon 09-12-2024 ECG 12 lead ECG [facility] [address] [place] [address] Electrocardiograph Report Signed Patient: Austin Golden MR#: [id number] 8 : 1940 Acct:[id number] Age/Sex: 83 / F ADM Date: 09/12/24 Loc: ER Room: Type: [facility] ER Attending Dr: Ordering Provider: [...] Electronic ventricular pacemaker Confirmed by Vipin Awad ([id number]) on 2024 6:02:22 PM Referred By: Electronically Signed By: Vipin Awad Transcribed By: MUS Signed By Vipin Awad MD 09/14/24 180 Normal [facility] Eosinophils Auto (Bld) [#/Vo l]Ordered By: Gracia Craig on 09-12-2024 Eosinophils (Bld) [#/Vol] Automated eosinophil count 0.0-0.45 [facility] Eosinophils/100 WBC Auto (Bl d)Ordered By: Gracia Craig on 09-12-2024 Eosinophils/100 WBC (Bld) Automated eosinophil % . [facility] Erythrocyte distribution wid th Auto (RBC) [Ratio]Ordered By: Gracia Craig on 09-12-2024 Erythrocyte distribution width (RBC) [Ratio] Erythrocyte distribution width [Ratio] by Automated count 11.9-15.3 [facility] Globulin Calc (S) [Mass/Vol] Ordered By: Gracia Craig on 09-12-2024 Globulin (S) [Mass/Vol] Serum globulin measurement by calculation (mass/volume) [facility] Glucose [Mass/volume] in Ser um or PlasmaOrdered By: Gracia Craig on 09-12-2024 Glucose [Mass/Vol] Glucose [Mass/volume ] in [...] (Bld) [Volum e fraction]Ordered By: Gracia Craig on 09-12-2024 Hematocrit (Bld) [Volume fraction] Hematocrit [Volume Fraction] of Blood by Automated count Invalid Interpretation Code 34.0-46.4 [facility] Comment on above: Delta: 40.2 on 09/11 Hemoglobin [Mass/volume] in BloodOrdered By: Gracia Craig on 09-12-2024 Hemoglobin (Bld) [Mass/Vol] Hemoglobin [Mass/volume] in Blood High 11.8-15.4 [facility] INR in Platelet poor plasma by Coagulation assayOrdered By: Gracia Craig on 09-12-2024 INR Coag (PPP) [Relative time] INR [...] North MCHC Auto (RBC) [Mass/Vol]Or dered By: Graciacatrina Craig on 09-12-2024 MCHC (RBC) [Mass/Vol] MCHC [Mass/volume] by Automated count 32.0-35.0 [facility] MCV Auto (RBC) [Entitic vol] Ordered By: Graciacatrina Craig on 09-12-2024 MCV (RBC) [Entitic vol] MCV [Entitic volume] by Automated count 80-100 [facility] Monocyte distribution width [Entitic volume] in Blood by AutomatedOrdered By: Graciacatrina Craig on 09-12-2024 Monocyte distribution width Auto (Bld) [Entitic vol] Monocyte distribution width [Entitic volume] in Blood by Automated 0.00-20.00 [facility] Monocytes Auto (Bld) [#/Vol] Ordered By: Gracia Craig on 09-12-2024 Monocytes (Bld) [#/Vol] Automated blood monocyte count 0.0-0.8 [facility] Monocytes/100 WBC Auto (Bld) Ordered By: Graciacatrina Craig on 09-12-2024 Monocytes/100 WBC (Bld) Automated monocyte % . [facility] Natriuretic peptide B [Mass/ Vol]Ordered By: Gracia Craig on 09-12-2024 Natriuretic peptide B (Bld) [Mass/Vol] BNP ser/plas High 5-100 [facility] Neutrophils Auto (Bld) [#/Vo l]Ordered By: Graciacatrina Craig on 09-12-2024 Neutrophils (Bld) [#/Vol] Neutrophils [#/volume] in Blood by Automated count 1.8-7.7 [facility] Neutrophils/100 WBC Auto (Bl d)Ordered By: Graciacatrina Craig on 09-12-2024 Neutrophils/100 WBC (Bld) Automated neutrophil % . [facility] No Panel InformationOrdered By: Graciacatrina Craig on 09-12-2024 Estimated GFR (CKD-EPI) 44.584 [...] [#/Vol] Ordered By: Gracia Craig on 09-12-2024 Platelets (Bld) [#/Vol] Platelets [#/volume] in Blood by Automated count 150-450 [facility] Potassium [Moles/volume] in Serum or PlasmaOrdered By: Gracia Craig on 09-12-2024 Potassium [Moles/Vol] Potassium [Moles/v olume] in Serum or Plasma 3.5-5.1 [facility] Protein [Mass/volume] in Ser um or PlasmaOrdered By: Gracia Craig on 09-12-2024 Protein [Mass/Vol] Protein [Mass/volume ] in Serum or Plasma 6.4-8.9 [facility] Prothrombin Time INRon 09-12 INR Coag (PPP) [Relative time] 1.6 {INR} Normal [facility] Comment on above: Result [...] heart valves: 3 - 4.5 PERFORMED BY: [facility] [address] [place] [address] PATHOLOGIST INSURANCE SALES MANAGER AKILAH LOMBARDO M.D. Performed By: #### P T, CMP, BNP, HS TROP, CK, CBC ####[facility] [address] [place] [address] [facility] PT Coag (PPP) [Time] 18.3 s High 9.0-12.9 [facility] Comment on above: Result Comment: A he matocrit value greater than 55% may lead to inaccurate results in coagulation testing. Patients having hematocrit values >55% require a special collection tube for coagulation studies. Please contact the laboratory at [phone] for redraw instructions. Performed By: #### P T, CMP, BNP, HS TROP, CK, CBC ####[facility] [address] [place] [address] [facility] Prothrombin time (PT)Ordered By: Gracia Craig on 09-12-2024 PT Coag (PPP) [Time] Prothrombin time (PT) High 9.0- 12.9 [facility] Comment on above: A hematocrit value g reater than 55% may lead to inaccurate results in coagulation testing. Patients having hematocrit values >55% require a special collection tube for coagulation studies. Please contact the laboratory at [phone] for redraw instructions. RBC Auto (Bld) [#/Vol]Ordere [...] albumin/glob ulin mass ratioOrdered By: Gracia Craig 09-12-2024 Albumin/Globulin [Mass ratio] Serum or plasma albumin/globulin mass ratio [facility] Serum or plasma anion gap de terminationOrdered By: Gracia Craig 09-12-2024 Anion gap [Moles/Vol] Serum or plasma an ion gap determination 6.0-15.0 [facility] Sodium [Moles/volume] in Ser um or PlasmaOrdered By: Gracia Craig 09-12-2024 Sodium [Moles/Vol] Sodium [Moles/volume ] in Serum or Plasma 136-145 [facility] Troponin I High Sensitivityo n 09-12-2024 Troponin I High Sensitivity 24 High 0-15 [facility] Comment on above: Result Comment: The Troponin units of report have been changed to meet the Chest Pain Accreditation requirement, element EC5.M1l2. Troponin units are changed from pg/ml to ng/L. Also, the decimal is removed and results are in whole numbers. PERFORMED BY: [facility] [address] [place] [id number] PATHOLOGIST INSURANCE SALES MANAGER AKILAH LOMBARDO M.D. Performed By: #### P T, CMP, BNP, HS TROP, CK, CBC ####[facility] [place] [id number] [facility] Troponin I.cardiac [Mass/vol ume] in Serum or [...] (Bld) [Mass/Vol] 195.0 pg/mL High 5-100 [facility] Comment on above: Result Comment: PERF ORMED BY: [facility] [address] [place] [address] PATHOLOGIST INSURANCE SALES MANAGER AKILAH LOMBARDO M.D. Performed By: #### C MP, BNP, CBC ####[facility] Basophils Auto (Bld) [#/Vol] Ordered By: Jazmin العلي on 09-11-2024 Basophils (Bld) [#/Vol] Automated basophil count 0.0-0.2 [facility] Basophils/100 WBC Auto (Bld) Ordered By: [...] (Bld) [#/Vol] 0.1 10*3/uL Normal 0.0-0.2 [facility] Comment on above: Result Comment: PERF ORMED BY: [facility] [address] [place] [address] PATHOLOGIST INSURANCE SALES MANAGER AKILAH LOMBARDO M.D. Performed By: #### C MP, BNP, CBC ####[address] Basophils/100 WBC (Bld) 0.6 % Normal . [facility] Comment on above: Performed By: #### C MP, BNP, CBC ####[address] Eosinophils (Bld) [#/Vol] 0.2 10*3/uL Normal 0.0-0.45 [facility] Comment on above: Performed By: #### C MP, BNP, CBC ####[address] Eosinophils/100 WBC (Bld) 1.9 % Normal . [facility] Comment on above: Performed By: #### C MP, BNP, CBC ####[address] Erythrocyte distribution width (RBC) [Ratio] 15.1 % Normal 11.9-15.3 [facility] Comment on above: Performed By: #### C MP, BNP, CBC ####[address] Hematocrit (Bld) [Volume fraction] 40.2 % Normal 34.0-46.4 [facility] Comment on above: Performed By: #### C MP, BNP, CBC ####[address] Hemoglobin (Bld) [Mass/Vol] 13.5 g/dL Normal 11.8-15.4 [facility] Comment on above: Performed By: #### C MP, BNP, CBC ####[address] Lymphocytes (Bld) [#/Vol] 1.1 10*3/uL Normal 1.00-4.8 [facility] Comment on above: Performed By: #### C MP, BNP, CBC ####[address] Lymphocytes/100 WBC (Bld) 12.0 % Normal . [facility] Comment on above: Performed By: #### C MP, BNP, CBC ####[address] MCH (RBC) [Entitic mass] 30.6 pg Normal 24.7-34.3 [facility] Comment on above: Performed By: #### C MP, BNP, CBC ####[address] MCV (RBC) [Entitic vol] 90.9 fL Normal 80-100 [facility] Comment on above: Performed By: #### C MP, BNP, CBC ####[address] Mean Corpuscular HGB Conc 33.7 g/dL Normal 32.0-35.0 [facility] Comment on above: Performed By: #### C MP, BNP, CBC ####[address] Monocytes (Bld) [#/Vol] 0.7 10*3/uL Normal 0.0-0.8 [facility] Comment on above: Performed By: #### C MP, BNP, CBC ####[address] Monocytes/100 WBC (Bld) 7.6 % Normal . [facility] Comment on above: Performed By: #### C MP, BNP, CBC ####[address] Neutrophils (Bld) [#/Vol] 7.2 10*3/uL Normal 1.8-7.7 [facility] Comment on above: Performed By: #### C MP, BNP, CBC ####[address] Neutrophils/100 WBC (Bld) 77.9 % Normal . [facility] Comment on above: Performed By: #### C MP, BNP, CBC ####[address] NRBC% 0.1 /100{WBC} Normal 0-0.5 [facility] Comment on above: Performed By: #### C MP, BNP, CBC ####[address] Platelet mean volume (Bld) [Entitic vol] 8.4 fL Normal 6.3-10.7 [facility] Comment on above: Performed By: #### C MP, BNP, CBC ####[address] Platelets (Bld) [#/Vol] 245 10*3/uL Normal 150-450 [facility] Comment on above: Performed By: #### C MP, BNP, CBC ####[address] RBC (Bld) [#/Vol] 4.42 10*6/uL Normal 3.60-5.00 [facility] Comment on above: Performed By: #### C MP, BNP, CBC ####[address] WBC (Bld) [#/Vol] 9.2 10*3/uL Normal 3.8-11.6 [facility] Comment on above: Performed By: #### C MP, BNP, CBC ####[address] [address] [facility] Comprehensive Metabolic Pane violeta 09-11-2024 Albumin [Mass/Vol] 4.2 g/dL Normal 3.5-5.7 [facility] Comment on above: Performed By: #### C MP, BNP, CBC ####[address] [address] [facility] Albumin/Globulin [Mass ratio] 1.8 {ratio} Normal [facility] Comment on above: Performed By: #### C MP, BNP, CBC ####[address] [address] [facility] ALP [Catalytic activity/Vol] 78 U/L Normal 34-104 [facility] Comment on above: Result Comment: PERF ORMED BY: [facility] [address] [place] [address] PATHOLOGIST INSURANCE SALES MANAGER AKILAH LOMBARDO M.D. Performed By: #### C MP, BNP, CBC ####[address] [address] [facility] ALT [Catalytic activity/Vol] 19 U/L Normal 7-52 [facility] Comment on above: Performed By: #### C MP, BNP, CBC ####[place] [id number] [facility] Anion gap [Moles/Vol] 13.5 mmol/L Normal 6.0-15.0 [facility] Comment on above: Performed By: #### C MP, BNP, CBC ####[place] [id number] [facility] AST [Catalytic activity/Vol] 28 U/L Normal 13-39 [facility] Comment on above: Performed By: #### C MP, BNP, CBC ####[place] [address] [facility] Bilirubin [Mass/Vol] 1.2 mg/dL High 0.3-1.0 [facility] Comment on above: Performed By: #### C MP, BNP, CBC ####[address] Calcium [Mass/Vol] 9.8 mg/dL Normal 8.6-10.3 [facility] Comment on above: Performed By: #### C MP, BNP, CBC ####[address] Chloride [Moles/Vol] 103 mmol/L Normal 98-107 [facility] Comment on above: Performed By: #### C MP, BNP, CBC ####[address] CO2 [Moles/Vol] 29.3 mmol/L Normal 21.0-31.0 [facility] Comment on above: Performed By: #### C MP, BNP, CBC ####[address] Creatinine [Mass/Vol] 1.39 mg/dL High 0.60-1.20 [facility] Comment on above: Performed By: #### C MP, BNP, CBC ####[address] Estimated GFR 38.123 mL/Min Normal [facility] Comment on above: Performed By: #### C MP, BNP, CBC ####[address] Globulin (S) [Mass/Vol] 2.4 g/dL Normal [facility] Comment on above: Performed By: #### C MP, BNP, CBC ####[address] Glucose [Mass/Vol] 111 mg/dL High 70-100 [facility] Comment on above: Result Comment: [place] Glucose Reference Range is dependent on time and content of last meal. Glucose of more than 200 mg/dL in a nonstressed, ambulatory subject supports the diagnosis of Diabetes Mellitus. ADA recommended reference range Performed By: #### C MP, BNP, CBC ####[address] Potassium [Moles/Vol] 3.8 mmol/L Normal 3.5-5.1 [facility] Comment on above: Performed By: #### C MP, BNP, CBC ####[facility] Protein [Mass/Vol] 6.6 g/dL Normal 6.4-8.9 [facility] Comment on above: Performed By: #### C MP, BNP, CBC ####[facility] Sodium [Moles/Vol] 142 mmol/L Normal 136-145 [facility] Comment on above: Performed By: #### C MP, BNP, CBC ####[place] [address] [address] Urea nitrogen [Mass/Vol] 29 mg/dL High 7-25 [facility] Comment on above: Performed By: #### C MP, BNP, CBC ####[place] [address] Creatinine [Mass/volume] in Serum or PlasmaOrdered By: Jazmin العلي on 09-11-2024 Creatinine [Mass/Vol] Creatinine [Mass/v olume] in Serum or Plasma High 0.60-1.20 [facility] Eosinophils Auto (Bld) [#/Vo l]Ordered By: Jazmin العلي on 09-11-2024 Eosinophils (Bld) [#/Vol] Automated eosinophil count 0.0-0.45 [facility] Eosinophils/100 WBC Auto (Bl d)Ordered By: Jazmin [...] Hemoglobin [Mass/volume] in BloodOrdered By: Jazmin العلي on 09-11-2024 Hemoglobin (Bld) [Mass/Vol] Hemoglobin [Mass/volume] in Blood 11.8-15.4 [facility] Leukocytes [#/volume] correc anne marie for nucleated erythrocytes in Blood by Automated counOrdered By: Jazmin العلي on 09-11-2024 WBC corrected for nucl RBC Auto (Bld) [#/Vol] Leukocytes [#/volume] corrected for nucleated erythrocytes in Blood by Automated coun 3.8-11.6 [facility] Lymphocytes Auto (Bld) [#/Vo l]Ordered By: Jazmin العلي on 09-11-2024 Lymphocytes (Bld) [#/Vol] Lymphocytes [#/volume] in [...] or PlasmaOrdered By: Jazmin العلي on 09-11-2024 Potassium [Moles/Vol] Potassium [Moles/v olume] in Serum or Plasma 3.5-5.1 [facility] Protein [Mass/volume] in Ser um or PlasmaOrdered By: Jazmin العلي on 09-11-2024 Protein [Mass/Vol] Protein [Mass/volume ] in Serum or Plasma 6.4-8.9 [facility] RBC Auto (Bld) [#/Vol]Ordere d By: Jazmin العلي on 09-11-2024 RBC (Bld) [#/Vol] Erythrocytes [#/volu me] in Blood by Automated count 3.60-5.00 [facility] Serum or plasma albumin/glob ulin mass ratioOrdered By: Jazmin العلي on 09-11-2024 Albumin/Globulin [Mass ratio] Serum or plasma albumin/globulin mass ratio [facility] Serum or plasma anion gap de terminationOrdered By: Jazmin العلي on 09-11-2024 Anion gap [Moles/Vol] Serum or plasma an ion gap determination 6.0-15.0 [facility] Sodium [Moles/volume] in Ser um or PlasmaOrdered By: Jazmin العلي on 09-11-2024 Sodium [Moles/Vol] Sodium [Moles/volume ] in Serum or Plasma 136-145 [facility] Urea nitrogen [Mass/volume] in Serum or PlasmaOrdered By: Jazmin العلي on 09-11-2024 Urea nitrogen [Mass/Vol] Urea nitrogen [Mass/volume] in Serum or Plasma High 7-25 [facility] WBC Auto (Bld) [#/Vol]Ordere d By: Jazmin العلي on 09-11-2024 WBC (Bld) [#/Vol] Leukocytes [#/volume ] in Blood by Automated count 3.8-11.6 [facility] X-ray reportOrdered By: Juan Diego Carson on 09-11-2024 Study report [facility] [place] [address] XRay Report Signed Patient: Austin Golden MR#: [id number] : 1940 Acct:[id number] Age/Sex: 83 / F ADM Date: 5 Loc: XD Room: Type: [facility] Attending Dr: Jazmin العلي DO Copies to: [...] SEEN. Impression dictated by: Nnamdi Carson Jr., D.OMelita09/11/2024 3:37 PM Dictation Location: [place] [address] Transcribed By: [facility] 09/11/24 1537 Dictated By: Nnamdi Carson Jr, DO 09/11/24 1536 Signed By: 09/11/24 1537 [facility] XR ribs RT min 3V w CXR1V*on 09-11-2024 XR ribs RT min 3V w CXR1V* [facility] [address] [place] [address] [place] [address] XRay Report Signed Patient: Austin Golden MR#: [id number] 8 : 1940 Acct:[id number] Age/Sex: 83 / F ADM Date: 09/11/24 Loc: XD Room: Type: [facility] Attending Dr: Jazmin العلي DO Copies to: [...] Carson Jr., D.O.09/11/2024 3:37 PM Dictation Location: [place] [address] Transcribed By: [facility] 09/11/24 1537 Dictated By: Nnamdi Carson Jr DO 09/11/24 1536 Signed By: 09/11/24 1537 Normal [facility] Influenza virus B Ag [Presen ce] in Upper respiratory specimen by Rapid immunoassayon 09-09-2024 FLUBV Ag IA.rapid Ql (Nph) Influenza virus B Ag [Presence] in Upper respiratory specimen by Rapid immunoassay [facility] No Panel Informationon 09-09 Influenza Type A (Rapid) Negative [facility] POC SARS CoV-2 Antigen Negative [facility] ECG 12 Leadon 09-05-2024 Atrial flutter with heart rate of [address]-T changes and intraventricular conduction delay [facility] Work Phone: X-ray reportOrdered By: Jadiel Borja on 09-05-2024 Study report [facility] [place] [address] XRay Report Signed Patient: Austin Golden MR#: [id number] : 1940 Acct:[id number] Age/Sex: 83 / F ADM Date: 5 Loc: XD Room: Type: [facility] Attending Dr: Yesica Astudillo MD Copies to: Yesica Astudillo MD~ Ordering Provider: Yesica Astudillo MD Date of Service: 09/05/24 XR/XR thoracic spine 2V: PAIN ([id number]) XR/XR cervical spine 5V*: PAIN 5 views [...] Juanito Borja M.D.09/05/2024 4:55 PM Dictation Location: [place] [address] Transcribed By: [facility] 09/05/241654 Dictated By: Juanito Borja DO 09/05/241650 Signed By: 09/05/241654 [facility] XR thoracic spine 2Von 09-05 XR thoracic spine 2V [facility] [place] [address] XRay Report Signed Patient: Austin Golden MR#: [id number] 8 : 1940 Acct:[id number] Age/Sex: 83 / F ADM Date: 09/05/24 Loc: XD Room: Type: [facility] Attending Dr: Yesica Astudillo MD Copies to: Yesica Astudillo MD Ordering Provider: Yesica Astudillo MD Date of Service: 09/05/24 XR/XR thoracic spine 2V: PAIN ([id number]) XR/XR cervical spine 5V*: PAIN 5 views [...] Juanito Borja M.D.09/05/2024 4:55 PM Dictation Location: [id number] Transcribed By: [facility] 09/05/241654 Dictated By: Juanito Borja DO 09/05/241650 Signed By: 09/05/241654 Normal [facility] Progress Noteson 08-18-2024 Veneer Jointer Authentication Interface Message Text Documentation: Mode: Telephone Patient Patient Work Phone: Patient Cell Preferred phone: [phone] Consent: I confirmed patient understanding of the [...] Yung MD Division of Gastroenterology AND Hepatology [facility] 08/18/24, 5:01 PM Normal [facility] Telephone Encounteron 2023 Veneer Jointer Authentication Interface Message Text Situation: Call back Background: Pt would like to have a phone appointment with her doctor. Assessment: Please Advise Recommendation: Pt can be reached at Phone numbers Normal [facility] Progress Noteson 07-29-2024 Veneer Jointer Authentication Interface Message Text This encounter was opened in error. Patient was a No-Show (she was admitted to hospital at time of this appt). Please disregard. Normal [facility] Telephone Encounteron 2023 Veneer Jointer Authentication Interface Message Text Pt calling to reschedule the Televisit with Dr. Katie Yung that she missed on 07/22/2024 and the tree is not providing the option of televisits. Pt states that she was in the hospital for heart issues. Please return Pt's call at: . Thank you Normal [facility] Basic Metabolic Panelon Anion gap [Moles/Vol] 10.8 mmol/L Normal 6.0-15.0 [facility] Comment on above: Performed By: #### B MP, MG ####[address] Calcium [Mass/Vol] 8.6 mg/dL Normal 8.6-10.3 [facility] Comment on above: Performed By: #### B MP, MG ####[address] Chloride [Moles/Vol] 106 mmol/L Normal 98-107 [facility] Comment on above: Performed By: #### B MP, MG ####[address] CO2 [Moles/Vol] 29.0 mmol/L Normal 21.0-31.0 [facility] Comment on above: Performed By: #### B MP, MG ####[address] Creatinine [Mass/Vol] 1.25 mg/dL High 0.60-1.20 [facility] Comment on above: Performed By: #### B MP, MG ####[place] [address] [facility] Creatinine Clr Calc Pharmacy 30.08 Normal [facility] Comment on above: Performed By: #### B MP, MG ####[address] Estimated GFR 43.302 mL/Min Normal [facility] Comment on above: Performed By: #### B MP, MG ####[place] [address] [address] Glucose [Mass/Vol] 102 mg/dL High 70-100 [facility] Comment on above: Result Comment: [facility] Glucose Reference Range is dependent on time and content of last meal. Glucose of more than 200 mg/dL in a nonstressed, ambulatory subject supports the diagnosis of Diabetes Mellitus. ADA recommended reference range Performed By: #### B MP, MG ####[place] [address] [address] Potassium [Moles/Vol] 3.8 mmol/L Normal 3.5-5.1 [facility] Comment on above: Performed By: #### B MP, MG ####[address] Sodium [Moles/Vol] 142 mmol/L Normal 136-145 [facility] Comment on above: Performed By: #### B MP, MG ####[address] Urea nitrogen [Mass/Vol] 18 mg/dL Normal 7-25 [facility] Comment on above: Performed By: #### B MP, MG ####[address] Calcium [Mass/volume] in Ser um or [...] Magnesium [Mass/Vol] 1.9 mg/dL Normal 1.9-2.7 [facility] Comment on above: Result Comment: PERF ORMED BY: [facility] [address] [place] [address] PATHOLOGIST INSURANCE SALES MANAGER AKILAH LOMBARDO M.D. Performed By: #### B MP, MG ####[facility] [place] [address] [facility] Magnesium [Mass/volume] in S vaughn or PlasmaOrdered By: Fahad Kmi on 07-24-2024 Magnesium [Mass/Vol] Magnesium [Mass/vol ume] [...] [Moles/Vol] 11.2 mmol/L Normal 6.0-15.0 [facility] Comment on above: Performed By: #### M G, BMP ####[place] [id number] [facility] Calcium [Mass/Vol] 8.7 mg/dL Normal 8.6-10.3 [facility] Comment on above: Performed By: #### Jake, BMP ####[place] [address] [facility] Chloride [Moles/Vol] 104 mmol/L Normal 98-107 [facility] Comment on above: Performed By: #### M G, BMP ####[place] [address] [facility] CO2 [Moles/Vol] 28.7 mmol/L Normal 21.0-31.0 [facility] Comment on above: Performed By: #### G, BMP ####[address] [address] [facility] Creatinine [Mass/Vol] 1.26 mg/dL High 0.60-1.20 [facility] Comment on above: Performed By: #### M G, BMP ####[place] [address] [place] [address] [facility] Creatinine Clr Calc Pharmacy 29.57 Normal [facility] Comment on above: Performed By: #### M G, BMP ####[place] [address] [place] [address] [facility] Estimated GFR 42.890 mL/Min Normal [facility] Comment on above: Performed By: #### M G, BMP ####[place] [address] [facility] Glucose [Mass/Vol] 92 mg/dL Normal 70-100 [facility] Comment on above: Result Comment: [facility] Glucose Reference Range is dependent on time and content of last meal. Glucose of more than 200 mg/dL in a nonstressed, ambulatory subject supports the diagnosis of Diabetes Mellitus. ADA recommended reference range Performed By: #### M G, BMP ####[place] [address] [place] [id number] [facility] Potassium [Moles/Vol] 3.9 mmol/L Normal 3.5-5.1 [facility] Comment on above: Performed By: #### M G, BMP ####[place] [address] [place] [id number] [facility] Sodium [Moles/Vol] 140 mmol/L Normal 136-145 [facility] Comment on above: Performed By: #### Yaquelin G, BMP ####[place] [address] [place] [id number] [facility] Urea nitrogen [Mass/Vol] 19 mg/dL Normal 7-25 [facility] Comment on above: Performed By: #### M G, BMP ####[place] [address] [place] [id number] [facility] Magnesiumon 07-23-2024 Magnesium [Mass/Vol] 1.9 mg/dL Normal 1.9-2.7 [facility] Comment on above: Result Comment: PERF ORMED BY: [facility] [address] [place] [address] PATHOLOGIST INSURANCE SALES MANAGER AKILAH LOMBARDO M.D. Performed By: #### M G, BMP ####[place] [address] [place] [id number] [facility] Alanine aminotransferase [En zymatic activity/volume] in Serum [...] Albumin [Mass/Vol] 3.2 g/dL Low 3.5-5.7 [facility] Comment on above: Performed By: #### C MP ####[place] [address] [facility] Albumin/Globulin [Mass ratio] 2.0 {ratio} Normal [facility] Comment on above: Performed By: #### C MP ####[address] [address] [facility] ALP [Catalytic activity/Vol] 48 U/L Normal 34-104 [facility] Comment on above: Performed By: #### C MP ####[address] [address] [facility] ALT [Catalytic activity/Vol] 28 U/L Normal 7-52 [facility] Comment on above: Performed By: #### C MP ####[place] [address] [facility] Anion gap [Moles/Vol] 11.0 mmol/L Normal 6.0-15.0 [facility] Comment on above: Performed By: #### C MP ####[address] [place] [address] [place] AST [Catalytic activity/Vol] 40 U/L High 13-39 [facility] Comment on above: Performed By: #### C MP ####[address] Bilirubin [Mass/Vol] 0.6 mg/dL Normal 0.3-1.0 [facility] Comment on above: Performed By: #### C MP ####[address] Calcium [Mass/Vol] 8.6 mg/dL Normal 8.6-10.3 [facility] Comment on above: Performed By: #### C MP ####[address] Chloride [Moles/Vol] 105 mmol/L Normal 98-107 [facility] Comment on above: Performed By: #### C MP ####[address] CO2 [Moles/Vol] 28.7 mmol/L Normal 21.0-31.0 [facility] Comment on above: Performed By: #### C MP ####[address] Creatinine [Mass/Vol] 1.20 mg/dL Normal 0.60-1.20 [facility] Comment on above: Performed By: #### C MP ####[address] Creatinine Clr Calc Pharmacy 31.05 Normal [facility] Comment on above: Result Comment: PERF ORMED BY: [facility] [address] [place] [address] PATHOLOGIST INSURANCE SALES MANAGER AKILAH LOMBARDO M.D. Performed By: #### C MP ####[address] Estimated GFR 45.476 mL/Min Normal [facility] Comment on above: Performed By: #### C MP ####[place] [address] [facility] Globulin (S) [Mass/Vol] 1.6 g/dL Normal [facility] Comment on above: Performed By: #### C MP ####[address] Glucose [Mass/Vol] 90 mg/dL Normal 70-100 [facility] Comment on above: Result Comment: [place] Glucose Reference Range is dependent on time and content of last meal. Glucose of more than 200 mg/dL in a nonstressed, ambulatory subject supports the diagnosis of Diabetes Mellitus. ADA recommended reference range Performed By: #### C MP ####[address] Potassium [Moles/Vol] 3.7 mmol/L Normal 3.5-5.1 [facility] Comment on above: Performed By: #### C MP ####[address] Protein [Mass/Vol] 4.8 g/dL Low 6.4-8.9 [facility] Comment on above: Performed By: #### C MP ####[place] [id number] [facility] Sodium [Moles/Vol] 141 mmol/L Normal 136-145 [facility] Comment on above: Performed By: #### C MP ####[place] [address] [facility] Urea nitrogen [Mass/Vol] 17 mg/dL Normal 7-25 [facility] Comment on above: Performed By: #### C MP ####[place] [address] [facility] Globulin Calc (S) [Mass/Vol] Ordered By: Aroldo [...] 54.4 pg/mL Off scale high 0.0-15.0 [facility] Comment on above: Result Comment: Crit ical Result : Called to and read back by: PAYTON CESPEDES at: 07/22/2024 05:09:56 by:[id number] PERFORMED BY: [facility] [address] [place] [id number] PATHOLOGIST INSURANCE SALES MANAGER AKILAH LOMBARDO M.D. Performed By: #### H S TROP ####[place] [address] [place] [address] [facility] Troponin I.cardiac [Mass/vol ume] in Serum or [...] back by: PAYTON CESPEDES at: 07/22/2024 05:09:56 by:[id number] Basic Metabolic Panelon Anion gap [Moles/Vol] 11.0 mmol/L Normal 6.0-15.0 [facility] Comment on above: Performed By: #### B MP, HS TROP ####[address] [address] [facility] Calcium [Mass/Vol] 8.8 mg/dL Normal 8.6-10.3 [facility] Comment on above: Performed By: #### B MP, HS TROP ####[address] [address] [facility] Chloride [Moles/Vol] 104 mmol/L Normal 98-107 [facility] Comment on above: Performed By: #### B MP, HS TROP ####[facility] [place] [address] [facility] CO2 [Moles/Vol] 28.5 mmol/L Normal 21.0-31.0 [facility] Comment on above: Performed By: #### B MP, HS TROP ####[place] [address] [place] [address] [facility] Creatinine [Mass/Vol] 1.27 mg/dL High 0.60-1.20 [facility] Comment on above: Performed By: #### B MP, HS TROP ####[address] [address] [facility] Creatinine Clr Calc Pharmacy 29.34 Normal [facility] Comment on above: Result Comment: PERF ORMED BY: [facility] [address] [place] [address] PATHOLOGIST INSURANCE SALES MANAGER AKILAH LOMBARDO M.D. Performed By: #### B MP, HS TROP ####[place] [id number] [facility] Estimated GFR 42.486 mL/Min Normal [facility] Comment on above: Performed By: #### B MP, HS TROP ####[place] [id number] [facility] Glucose [Mass/Vol] 114 mg/dL High 70-100 [facility] Comment on above: Result Comment: [place] Glucose Reference Range is dependent on time and content of last meal. Glucose of more than 200 mg/dL in a nonstressed, ambulatory subject supports the diagnosis of Diabetes Mellitus. ADA recommended reference range Performed By: #### B MP, HS TROP ####[address] [address] [facility] Potassium [Moles/Vol] 3.5 mmol/L Normal 3.5-5.1 [facility] Comment on above: Performed By: #### B MP, HS TROP ####[place] [address] [place] [address] [facility] Sodium [Moles/Vol] 140 mmol/L Normal 136-145 [facility] Comment on above: Performed By: #### B MP, HS TROP ####[facility] Urea nitrogen [Mass/Vol] 18 mg/dL Normal 7-25 [facility] Comment on above: Performed By: #### B MP, HS TROP ####[facility] [id number] [place] [id number] [facility] Basophils Auto (Bld) [#/Vol] on 07-21-2024 Basophils (Bld) [#/Vol] Automated basophil count 0.0-0.1 [facility] Basophils/100 WBC Auto (Bld) on 07-21-2024 Basophils/100 WBC (Bld) Automated basophil % 0.2-2.0 [facility] ECG 12 lead ECGon 07-21-2024 ECG 12 lead ECG [facility] [place] [address] Electrocardiograph Report Signed Patient: Austin Golden MR#: [id number] 8 : 1940 Acct:[id number] Age/Sex: 83 / F ADM Date: 07/21/24 Loc: Room: [address] [place] [address] Type: ADM IN Attending Dr: Fahad Kim [...] Electronic atrial pacemaker Confirmed by Vipin Awad ([id number]) on 07/22/2024 6:59:31 PM Referred By: Electronically Signed By: Vipin Awad Transcribed By: MUS Signed By Vipin Awad MD 07/22/24 0499 Normal [facility] Eosinophils/100 WBC Auto (Bl d)on [...] 07-21-2024 Albumin [Mass/Vol] 3.3 g/dL Low 3.4-5.0 [facility] ALP [Catalytic activity/Vol] 73 U/L 46-116 [facility] ALT [Catalytic activity/Vol] 45 U/L 14-59 [facility] Amylase [Catalytic activity/Vol] 21 U/L Low 25-115 [facility] AST [Catalytic activity/Vol] 40 U/L High 15-37 [facility] Bilirubin [Mass/Vol] 0.8 mg/dL 0.2-1.0 [facility] Bilirubin.direct [Mass/Vol] 0.3 mg/dL High 0.0-0.2 [facility] Calcium [Mass/Vol] 10.1 mg/dL 8.5-10.1 [facility] Chloride [Moles/Vol] 103 mmol/L 98-107 [facility] CO2 [Moles/Vol] 25.6 mmol/L 21.0-32.0 [facility] Creatinine [Mass/Vol] 1.65 mg/dL High 0.55-1.02 [facility] GFR/1.73 sq M.predicted MDRD (S/P/Bld) [Vol rate/Area] 36 mL/min/{1.73_m2} Low >=60 mL/min/1.7 3m 2 [facility] Glucose [Mass/Vol] 106 mg/dL 74-106 [facility] Lipase [Catalytic activity/Vol] 23.0 U/L 16.0-77.0 [facility] Potassium [Moles/Vol] 3.9 mmol/L 3.5-5.1 [facility] Protein [Mass/Vol] 6.6 g/dL 6.4-8.2 [facility] Sodium [Moles/Vol] 142 mmol/L 136-145 [facility] Urea nitrogen [Mass/Vol] 18.0 mg/dL 7.0-18.0 [facility] [...] Magnesium [Mass/Vol] 2.0 mg/dL Normal 1.9-2.7 [facility] Comment on above: Result Comment: PERF ORMED BY: [facility] [address] [facility] [place] [address] PATHOLOGIST INSURANCE SALES MANAGER AKILAH LOMBARDO M.D. Performed By: #### M G, PT ####[facility] [place] [address] [facility] Monocytes Auto (Bld) [#/Vol] on 07-21-2024 Monocytes [...] Eosinophils # (Auto) 0.2 10 3/uL 0.0-0.7 [facility] Immature Granulocyte # (Auto) 0.04 10 3/uL [...] (PPP) [Relative time] 1.3 {INR} Normal [facility] Comment on above: Result [...] heart valves: 3 - 4.5 PERFORMED BY: [facility] [place] [address] PATHOLOGIST INSURANCE SALES MANAGER AKILAH LOMBARDO M.D. Performed By: #### M G, PT ####[facility] [id number] [place] [address] [facility] PT Coag (PPP) [Time] 14.6 s High 9.0-12.9 [facility] Comment on above: Result Comment: A he matocrit value greater than 55% may lead to inaccurate results in coagulation testing. Patients having hematocrit values >55% require a special collection tube for coagulation studies. Please contact the laboratory at [phone] for redraw instructions. Performed By: #### M G, PT ####[facility] [id number] [place] [address] [facility] Prothrombin time (PT)Ordered By: Aroldo Peña on 07-21-2024 PT Coag (PPP) [Time] Prothrombin time (PT) High 9.0- 12.9 [facility] Comment on above: A hematocrit value g reater than 55% may lead to inaccurate results in coagulation testing. Patients having hematocrit values >55% require a special collection tube for coagulation studies. Please contact the laboratory at [phone] for redraw instructions. RBC Auto (Bld) [#/Vol]on [...] [facility] Telephone Encounteron 2023 [employer] Authentication Interface Message Text Situation: Call transfer from [facility] with breathing issues. Attempt to help with EMS but difficulties. Call to EMS but told unable to send and unable to conference call. Patient disconnected. Attempt to call but no answer. Call to [facility] managed by [facility] whom is contracted via hospital. Patient lives in independent living managed by [facility]. Kwasi gil will call to have her checked out. Patient needs to get life alert. Background: See above. Cardiology with . Assessment: Message to Dr. Kurin. Varghese Recommendation: Normal [facility] [employer] Authentication Interface Message Text Caller transferred to nurse for sx of: Shortness of Breath, Abdominal or Chest Pain, (Patient is not sure which it is). Normal [facility] Troponin I High Sensitivityo n 07-21-2024 Troponin I High Sensitivity 53.5 pg/mL Off scale high 0.0-15.0 [facility] Comment on above: Result Comment: Crit ical Result : Called to and read back by: JARED PANG at: 07/21/2024 23:08:48 by:[id number] PERFORMED BY: [address] [place] [address] PATHOLOGIST INSURANCE SALES MANAGER AKILAH LOMBARDO M.D. Performed By: #### B LESTER, HS TROP ####[address] Basic Metabolic Panelon 11-1 Anion gap [Moles/Vol] 11.1 mmol/L Normal 6.0-15.0 [facility] Comment on above: Performed By: #### B MP, CBC ####[address] Calcium [Mass/Vol] 8.3 mg/dL Low 8.6-10.3 [facility] Comment on above: Performed By: #### B MP, CBC ####[address] Chloride [Moles/Vol] 106 mmol/L Normal 98-107 [facility] Comment on above: Performed By: #### B MP, CBC ####[place] [id number] [facility] CO2 [Moles/Vol] 25.5 mmol/L Normal 21.0-31.0 [facility] Comment on above: Performed By: #### B MP, CBC ####[place] [id number] [facility] Creatinine [Mass/Vol] 1.07 mg/dL Normal 0.60-1.20 [facility] Comment on above: Performed By: #### B MP, CBC ####[place] [id number] [facility] Creatinine Clr Calc Pharmacy 36.26 Normal [facility] Comment on above: Result Comment: PERF ORMED BY: [facility] [address] [place] [address] PATHOLOGIST INSURANCE SALES MANAGER AKILAH LOMBARDO M.D. Performed By: #### B MP, CBC ####[address] Estimated GFR 52.185 mL/Min Normal [facility] Comment on above: Performed By: #### B MP, CBC ####[address] Glucose [Mass/Vol] 111 mg/dL High 70-100 [facility] Comment on above: Result Comment: [facility] Glucose Reference Range is dependent on time and content of last meal. Glucose of more than 200 mg/dL in a nonstressed, ambulatory subject supports the diagnosis of Diabetes Mellitus. ADA recommended reference range Performed By: #### B MP, CBC ####[address] Potassium [Moles/Vol] 3.6 mmol/L Normal 3.5-5.1 [facility] Comment on above: Performed By: #### B MP, CBC ####[address] Sodium [Moles/Vol] 139 mmol/L Normal 136-145 [facility] Comment on above: Performed By: #### B MP, CBC ####[place] [id number] [facility] Urea nitrogen [Mass/Vol] 23 mg/dL Normal 7-25 [facility] Comment on above: Performed By: #### B MP, CBC ####[place] [id number] [facility] Basophils Auto (Bld) [#/Vol] Ordered By: Shilpa Fenton on 07-03-2024 Basophils (Bld) [#/Vol] Automated basophil count 0.0-0.2 [facility] Basophils/100 WBC Auto (Bld) Ordered By: [...] (Bld) [#/Vol] 0.0 10*3/uL Normal 0.0-0.2 [facility] Comment on above: Result Comment: PERF ORMED BY: [facility] [address] [place] [address] PATHOLOGIST INSURANCE SALES MANAGER AKILAH LOMBARDO M.D. Performed By: #### B MP, CBC ####[address] Basophils/100 WBC (Bld) 0.3 % Normal . [facility] Comment on above: Performed By: #### B MP, CBC ####[place] [id number] [address] Eosinophils (Bld) [#/Vol] 0.2 10*3/uL Normal 0.0-0.45 [facility] Comment on above: Performed By: #### B MP, CBC ####[place] [address] Eosinophils/100 WBC (Bld) 2.3 % Normal . [facility] Comment on above: Performed By: #### B MP, CBC ####[address] Erythrocyte distribution width (RBC) [Ratio] 14.3 % Normal 11.9-15.3 [facility] Comment on above: Performed By: #### B MP, CBC ####[address] Hematocrit (Bld) [Volume fraction] 35.3 % Normal 34.0-46.4 [facility] Comment on above: Performed By: #### B MP, CBC ####[address] Hemoglobin (Bld) [Mass/Vol] 11.9 g/dL Normal 11.8-15.4 [facility] Comment on above: Performed By: #### B MP, CBC ####[address] Lymphocytes (Bld) [#/Vol] 1.1 10*3/uL Normal 1.00-4.8 [facility] Comment on above: Performed By: #### B MP, CBC ####[address] Lymphocytes/100 WBC (Bld) 10.9 % Normal . [facility] Comment on above: Performed By: #### B MP, CBC ####[address] MCH (RBC) [Entitic mass] 31.6 pg Normal 24.7-34.3 [facility] Comment on above: Performed By: #### B MP, CBC ####[address] MCV (RBC) [Entitic vol] 93.9 fL Normal 80-100 [facility] Comment on above: Performed By: #### B MP, CBC ####[address] Mean Corpuscular HGB Conc 33.7 g/dL Normal 32.0-35.0 [facility] Comment on above: Performed By: #### B MP, CBC ####[address] Monocytes (Bld) [#/Vol] 0.5 10*3/uL Normal 0.0-0.8 [facility] Comment on above: Performed By: #### B MP, CBC ####[address] Monocytes/100 WBC (Bld) 5.6 % Normal . [facility] Comment on above: Performed By: #### B MP, CBC ####[address] Neutrophils (Bld) [#/Vol] 7.9 10*3/uL High 1.8-7.7 [facility] Comment on above: Performed By: #### B MP, CBC ####[address] Neutrophils/100 WBC (Bld) 80.9 % Normal . [facility] Comment on above: Performed By: #### B MP, CBC ####[address] NRBC% 0.1 /100{WBC} Normal 0-0.5 [facility] Comment on above: Performed By: #### B MP, CBC ####[address] Platelet mean volume (Bld) [Entitic vol] 8.7 fL Normal 6.3-10.7 [facility] Comment on above: Performed By: #### B MP, CBC ####[address] Platelets (Bld) [#/Vol] 227 10*3/uL Normal 150-450 [facility] Comment on above: Performed By: #### B MP, CBC ####[address] RBC (Bld) [#/Vol] 3.76 10*6/uL Normal 3.60-5.00 [facility] Comment on above: Performed By: #### B MP, CBC ####[facility] [id number] [address] WBC (Bld) [#/Vol] 9.8 10*3/uL Normal 3.8-11.6 [facility] Comment on above: Performed By: #### B MP, CBC ####[facility] [id number] [address] Creatinine [Mass/volume] in Serum or PlasmaOrdered By: Shilpa Fenton on 07-03-2024 Creatinine [Mass/Vol] Creatinine [Mass/v olume] in Serum or Plasma 0.60-1.20 [facility] Eosinophils Auto (Bld) [#/Vo l]Ordered By: Shilpa Fenton on 07-03-2024 Eosinophils (Bld) [#/Vol] Automated eosinophil count 0.0-0.45 [facility] Eosinophils/100 WBC Auto (Bl d)Ordered By: Shilpa [...] [Moles/Vol] 14.7 mmol/L Normal 6.0-15.0 [facility] Comment on above: Performed By: #### B MP ####[address] Calcium [Mass/Vol] 8.4 mg/dL Low 8.6-10.3 [facility] Comment on above: Performed By: #### B MP ####[place] [id number] [facility] Chloride [Moles/Vol] 104 mmol/L Normal 98-107 [facility] Comment on above: Performed By: #### B MP ####[place] [id number] [facility] CO2 [Moles/Vol] 23.3 mmol/L Normal 21.0-31.0 [facility] Comment on above: Performed By: #### B MP ####[place] [id number] [facility] Creatinine [Mass/Vol] 1.18 mg/dL Normal 0.60-1.20 [facility] Comment on above: Performed By: #### B MP ####[place] [id number] [facility] Creatinine Clr Calc Pharmacy 32.31 Normal [facility] Comment on above: Result Comment: PERF ORMED BY: [facility] [address] [place] [id number] PATHOLOGIST INSURANCE SALES MANAGER AKILAH LOMBARDO M.D. Performed By: #### B MP ####[place] [id number] [address] GFR/1.73 sq M.predicted MDRD (S/P/Bld) [Vol rate/Area] 46.403 mL/min/{1.73_m2} Normal [facility] Comment on above: Performed By: #### B MP ####[address] Glucose [Mass/Vol] 166 mg/dL High 70-100 [facility] Comment on above: Result Comment: [facility] Glucose Reference Range is dependent on time and content of last meal. Glucose of more than 200 mg/dL in a nonstressed, ambulatory subject supports the diagnosis of Diabetes Mellitus. ADA recommended reference range Performed By: #### B MP ####[place] [id number] [facility] Potassium [Moles/Vol] 4.0 mmol/L Normal 3.5-5.1 [facility] Comment on above: Performed By: #### B MP ####[place] [id number] [facility] Sodium [Moles/Vol] 138 mmol/L Normal 136-145 [facility] Comment on above: Performed By: #### B MP ####[place] [id number] [facility] Urea nitrogen [Mass/Vol] 24 mg/dL Normal 7-25 [facility] Comment on above: Performed By: #### B MP ####[place] [id number] [facility] Anion gap [Moles/Vol] 12.9 mmol/L Normal 6.0-15.0 [facility] Comment on above: Performed By: #### B MP ####[address] Calcium [Mass/Vol] 8.4 mg/dL Low 8.6-10.3 [facility] Comment on above: Performed By: #### B MP ####[address] Chloride [Moles/Vol] 104 mmol/L Normal 98-107 [facility] Comment on above: Performed By: #### B MP ####[address] CO2 [Moles/Vol] 24.2 mmol/L Normal 21.0-31.0 [facility] Comment on above: Performed By: #### B MP ####[address] Creatinine [Mass/Vol] 1.07 mg/dL Normal 0.60-1.20 [facility] Comment on above: Performed By: #### B MP ####[address] Creatinine Clr Calc Pharmacy 35.63 Normal [facility] Comment on above: Result Comment: PERF ORMED BY: [address] [place] [address] PATHOLOGIST INSURANCE SALES MANAGER VITOR ZARATE M.D. Performed By: #### B MP ####[address] GFR/1.73 sq M.predicted MDRD (S/P/Bld) [Vol rate/Area] 52.185 mL/min/{1.73_m2} Normal [facility] Comment on above: Performed By: #### B MP ####[place] [id number] [facility] Glucose [Mass/Vol] 101 mg/dL High 70-100 [facility] Comment on above: Result Comment: [place] Glucose Reference Range is dependent on time and content of last meal. Glucose of more than 200 mg/dL in a nonstressed, ambulatory subject supports the diagnosis of Diabetes Mellitus. ADA recommended reference range Performed By: #### B MP ####[address] Potassium [Moles/Vol] 4.1 mmol/L Normal 3.5-5.1 [facility] Comment on above: Performed By: #### B MP ####[address] Sodium [Moles/Vol] 137 mmol/L Normal 136-145 [facility] Comment on above: Performed By: #### B MP ####[address] Urea nitrogen [Mass/Vol] 23 mg/dL Normal 7-25 [facility] Comment on above: Performed By: #### B MP ####[address] Complete Blood Count Auto Di ffon 07-02-2024 Basophils (Bld) [#/Vol] 0.1 10*3/uL Normal 0.0-0.2 [facility] Comment on above: Result Comment: PERF ORMED BY: [facility] [address] [place] [address] PATHOLOGIST INSURANCE SALES MANAGER AKILAH LOMBARDO M.D. Performed By: #### C BC ####[address] Basophils/100 WBC (Bld) 1.3 % Normal . [facility] Comment on above: Performed By: #### C BC ####[address] Eosinophils (Bld) [#/Vol] 0.2 10*3/uL Normal 0.0-0.45 [facility] Comment on above: Performed By: #### C BC ####[address] Eosinophils/100 WBC (Bld) 1.9 % Normal . [facility] Comment on above: Performed By: #### C BC ####[address] Erythrocyte distribution width (RBC) [Ratio] 14.2 % Normal 11.9-15.3 [facility] Comment on above: Performed By: #### C BC ####[address] Hematocrit (Bld) [Volume fraction] 38.5 % Normal 34.0-46.4 [facility] Comment on above: Performed By: #### C BC ####[address] Hemoglobin (Bld) [Mass/Vol] 12.8 g/dL Normal 11.8-15.4 [facility] Comment on above: Performed By: #### C BC ####[address] Lymphocytes (Bld) [#/Vol] 1.7 10*3/uL Normal 1.00-4.8 [facility] Comment on above: Performed By: #### C BC ####[address] Lymphocytes/100 WBC (Bld) 19.1 % Normal . [facility] Comment on above: Performed By: #### C BC ####[address] MCH (RBC) [Entitic mass] 31.5 pg Normal 24.7-34.3 [facility] Comment on above: Performed By: #### C BC ####[address] MCV (RBC) [Entitic vol] 94.4 fL Normal 80-100 [facility] Comment on above: Performed By: #### C BC ####[address] Mean Corpuscular HGB Conc 33.3 g/dL Normal 32.0-35.0 [facility] Comment on above: Performed By: #### C BC ####[address] Monocytes (Bld) [#/Vol] 0.4 10*3/uL Normal 0.0-0.8 [facility] Comment on above: Performed By: #### C BC ####[place] [id number] [facility] Monocytes/100 WBC (Bld) 4.8 % Normal . [facility] Comment on above: Performed By: #### C BC ####[place] [id number] [facility] Neutrophils (Bld) [#/Vol] 6.7 10*3/uL Normal 1.8-7.7 [facility] Comment on above: Performed By: #### C BC ####[place] [id number] [facility] Neutrophils/100 WBC (Bld) 72.9 % Normal . [facility] Comment on above: Performed By: #### C BC ####[address] NRBC% 0.2 /100{WBC} Normal 0-0.5 [facility] Comment on above: Performed By: #### C BC ####[place] [id number] [facility] Platelet mean volume (Bld) [Entitic vol] 8.2 fL Normal 6.3-10.7 [facility] Comment on above: Performed By: #### C BC ####[place] [id number] [facility] Platelets (Bld) [#/Vol] 238 10*3/uL Normal 150-450 [facility] Comment on above: Performed By: #### C BC ####[place] [id number] [facility] RBC (Bld) [#/Vol] 4.08 10*6/uL Normal 3.60-5.00 [facility] Comment on above: Performed By: #### C BC ####[place] [id number] [facility] WBC (Bld) [#/Vol] 9.1 10*3/uL Normal 3.8-11.6 [facility] Comment on above: Performed By: #### C ####[facility] [id number] [place] [id number] [facility] ECG 12 lead ECGon 07-02-2024 ECG 12 lead ECG [facility] [place] [address] Electrocardiograph Report Signed Patient: Austin Golden MR#: [id number] 8 : 1940 Acct:[id number] Age/Sex: 83 / F ADM Date: 06/30/24 Loc: 3T Room: [address] [place] [address] Type: ADM IN Attending Dr: Shilpa Fenton [...] has undetermined rhythm, needs review Confirmed by DEBBIE MAC MD ([id number]) on 07/02/2024 4:02:01 PM Referred By: Jimena Smith Electronically Signed By: DEBBIE MAC MD Transcribed By: MUS Signed By Debbie Mac MD 1 09/01/23 1602 Normal [facility] ECG 12 lead ECG [facility] Main [place] [id number] Electrocardiograph Report Signed Patient: Austin Golden MR#: [id number] 8 : 1940 Acct:[id number] Age/Sex: 83 / F ADM Date: 06/30/24 Loc: 3T Room: [address] [place] [address] Type: ADM IN Attending Dr: Shilpa Fenton MD Ordering Provider: Jaevd Dee DO Date of Service: 07/02/24 ECG/ECG [...] Mac MD 1 09/01/23 1600 Normal [facility] ECG post procedureon 024 ECG post procedure [facility] Main [place] [address] [place] [address] Electrocardiograph Report Signed Patient: Austin Golden MR#: [id number] 8 : 1940 Acct:[id number] Age/Sex: 83 / F ADM Date: 06/30/24 Loc: Room: [address] [place] [address] Type: ADM IN Attending Dr: Shilpa Fenton [...] (292) on 07/02/2024 4:01:29 PM Referred By: Hess Smith Electronically Signed By: DEBBIE MAC MD Transcribed By: MUS Signed By Debbie Mac MD 1 09/01/23 1601 Normal [facility] Glucose Glucometer (BldC) [M ass/Vol]Ordered [...] diagnosis of Diabetes Mellitus. Glucose Poct Glucometerson 1 09-01-2023 Glucose [Mass/Vol] 172 mg/dL Normal [facility] Comment on above: Result Comment: [place] [facility] Glucose Reference Range is dependent on time and content of last meal. Glucose of more than 200 mg/dL in a nonstressed, ambulatory subject supports the diagnosis of Diabetes Mellitus. PERFORMED BY: [facility] [address] [place] [id number] PATHOLOGIST INSURANCE SALES MANAGER AKILAH LOMBARDO M.D. Performed By: #### G LULS ####Point of Care testing, Basic Metabolic Panelon 06-20 Anion gap [Moles/Vol] 13.0 mmol/L Normal 6.0-15.0 [facility] Comment on above: Performed By: #### C , BMP ####[facility] [place] [address] [facility] Calcium [Mass/Vol] 8.2 mg/dL Low 8.6-10.3 The [facility] Comment on above: Performed By: #### C BC, BMP ####[facility] [place] [address] [place] Chloride [Moles/Vol] 105 mmol/L Normal 98-107 [facility] Comment on above: Performed By: #### C BC, BMP ####[facility] [place] [address] [facility] CO2 [Moles/Vol] 26.1 mmol/L Normal 21.0-31.0 [facility] Comment on above: Performed By: #### C BC, BMP ####[address] [address] [facility] Creatinine [Mass/Vol] 1.12 mg/dL Normal 0.60-1.20 [facility] Comment on above: Performed By: #### C BC, BMP ####[address] [address] [facility] Creatinine Clr Calc Pharmacy 33.15 Normal [facility] Comment on above: Result Comment: PERF ORMED BY: [facility] [address] [place] [id number] PATHOLOGIST INSURANCE SALES MANAGER VITOR ZARATE M.D. Performed By: #### C BC, BMP ####[address] GFR/1.73 sq M.predicted MDRD (S/P/Bld) [Vol rate/Area] 49.402 mL/min/{1.73_m2} Normal [facility] Comment on above: Performed By: #### C BC, BMP ####[place] [id number] [facility] Glucose [Mass/Vol] 87 mg/dL Normal 70-100 [facility] Comment on above: Result Comment: [place] Glucose Reference Range is dependent on time and content of last meal. Glucose of more than 200 mg/dL in a nonstressed, ambulatory subject supports the diagnosis of Diabetes Mellitus. ADA recommended reference range Performed By: #### C BC, BMP ####[place] [id number] [facility] Potassium [Moles/Vol] 4.1 mmol/L Normal 3.5-5.1 [facility] Comment on above: Performed By: #### C BC, BMP ####[place] [id number] [facility] Sodium [Moles/Vol] 140 mmol/L Normal 136-145 [facility] Comment on above: Performed By: #### C BC, BMP ####[place] [id number] [facility] Urea nitrogen [Mass/Vol] 24 mg/dL Normal 7-25 [facility] Comment on above: Performed By: #### C BC, BMP ####[address] Complete Blood Count Auto Di ffon 07-01-2024 Basophils (Bld) [#/Vol] 0.1 10*3/uL Normal 0.0-0.2 [facility] Comment on above: Result Comment: PERF ORMED BY: [facility] [address] [place] [address] PATHOLOGIST INSURANCE SALES MANAGER VITOR ZARATE M.D. Performed By: #### C BC, BMP ####[address] Basophils/100 WBC (Bld) 1.0 % Normal . [facility] Comment on above: Performed By: #### C BC, BMP ####[address] Eosinophils (Bld) [#/Vol] 0.2 10*3/uL Normal 0.0-0.45 [facility] Comment on above: Performed By: #### C BC, BMP ####[address] Eosinophils/100 WBC (Bld) 2.5 % Normal . [facility] Comment on above: Performed By: #### C BC, BMP ####[address] Erythrocyte distribution width (RBC) [Ratio] 14.0 % Normal 11.9-15.3 [facility] Comment on above: Performed By: #### C BC, BMP ####[address] Hematocrit (Bld) [Volume fraction] 37.0 % Normal 34.0-46.4 [facility] Comment on above: Performed By: #### C BC, BMP ####[address] Hemoglobin (Bld) [Mass/Vol] 12.4 g/dL Normal 11.8-15.4 [facility] Comment on above: Performed By: #### C BC, BMP ####[address] Lymphocytes (Bld) [#/Vol] 1.4 10*3/uL Normal 1.00-4.8 [facility] Comment on above: Performed By: #### C BC, BMP ####[address] Lymphocytes/100 WBC (Bld) 20.3 % Normal . [facility] Comment on above: Performed By: #### C BC, BMP ####[address] MCH (RBC) [Entitic mass] 31.8 pg Normal 24.7-34.3 [facility] Comment on above: Performed By: #### C BC, BMP ####[address] MCV (RBC) [Entitic vol] 95.0 fL Normal 80-100 [facility] Comment on above: Performed By: #### C BC, BMP ####[address] Mean Corpuscular HGB Conc 33.5 g/dL Normal 32.0-35.0 [facility] Comment on above: Performed By: #### C BC, BMP ####[address] Monocytes (Bld) [#/Vol] 0.5 10*3/uL Normal 0.0-0.8 [facility] Comment on above: Performed By: #### C BC, BMP ####[address] Monocytes/100 WBC (Bld) 7.2 % Normal . [facility] Comment on above: Performed By: #### C BC, BMP ####[address] Neutrophils (Bld) [#/Vol] 4.8 10*3/uL Normal 1.8-7.7 [facility] Comment on above: Performed By: #### C BC, BMP ####[address] Neutrophils/100 WBC (Bld) 69.0 % Normal . [facility] Comment on above: Performed By: #### C BC, BMP ####[place] [id number] [facility] NRBC% 0.2 /100{WBC} Normal 0-0.5 [facility] Comment on above: Performed By: #### C BC, BMP ####[place] [id number] [facility] Platelet mean volume (Bld) [Entitic vol] 8.9 fL Normal 6.3-10.7 [facility] Comment on above: Performed By: #### C BC, BMP ####[place] [id number] [facility] Platelets (Bld) [#/Vol] 231 10*3/uL Normal 150-450 [facility] Comment on above: Performed By: #### C BC, BMP ####[place] [id number] [facility] RBC (Bld) [#/Vol] 3.90 10*6/uL Normal 3.60-5.00 [facility] Comment on above: Performed By: #### C BC, BMP ####[place] [id number] [facility] WBC (Bld) [#/Vol] 7.0 10*3/uL Normal 3.8-11.6 [facility] Comment on above: Performed By: #### C BC, BMP ####[place] [id number] [facility] ECG 12 lead ECGon 07-01-2024 ECG 12 lead ECG [facility] [address] [place] [address] [place] [address] Electrocardiograph Report Signed Patient: Austin Golden MR#: [id number] 8 : 1940 Acct:[id number] Age/Sex: 83 / F ADM Date: 06/30/24 Loc: Room: [address] [place] [address] Type: ADM IN Attending Dr: Shilpa Fenton [...] Mac MD 1 08/31/23 1729 Normal [facility] Troponin I High Sensitivityo n 07-01-2024 Troponin I High Sensitivity 92.3 pg/mL Off scale high 0.0-15.0 [facility] Comment on above: Result Comment: Crit ical Result : Called to and read back by: МАРИЯ MARKS at: 07/01/2024 01:58:44 by:[id number] PERFORMED BY: [facility] [address] [place] [id number] PATHOLOGIST INSURANCE SALES MANAGER VITOR ZARATE M.D. Performed By: #### H S TROP ####[facility] [id number] [place] [address] [facility] Troponin I.cardiac [Mass/vol ume] in Serum or [...] back by: МАРИЯ MARKS at: 07/01/2024 01:58:44 by:[id number] Alanine aminotransferase [En zymatic activity/volume] in Serum [...] (Bld) [Mass/Vol] 84.0 pg/mL Normal 5-100 [facility] Comment on above: Result Comment: PERF ORMED BY: [facility] [address] [place] [id number] PATHOLOGIST INSURANCE SALES MANAGER VITOR ZARATE M.D. Performed By: #### C BC, PT, HS TROP, PTT, CK, CMP, BNP ####[facility] [address] [place] [address] [facility] Basophils Auto (Bld) [#/Vol] Ordered By: Vic Mendez on 06-30-2024 Basophils (Bld) [#/Vol] Automated basophil count 0.0-0.2 [facility] Basophils/100 WBC Auto (Bld) Ordered By: Vic Mendez on 06-30-2024 Basophils/100 WBC (Bld) Automated basophil % . [facility] Bilirubin.total [Mass/volume ] in Serum or PlasmaOrdered By: Vic Mendez on 06-30-2024 Bilirubin [Mass/Vol] Bilirubin.total [Mass/volume] in Serum or Plasma 0.3-1.0 [facility] CT head/brain wo conon 06-30 CT head/brain wo con [facility] [address] [place] [address] [place] [address] CT Scan Report Signed Patient: Austin Golden MR#: [id number] 8 : 1940 Acct:[id number] Age/Sex: 83 / F ADM Date: 06/30/24 Loc: ER Room: Type: [facility] ER Attending Dr: Copies to: Vic [...] Juanito Borja M.D.06/30/2024 3:47 PM Dictation Location: [place] [address] Transcribed By: [facility] 06/30/24 1547 Dictated By: Juanito Borja DO 06/30/24 1542 Signed By: 06/30/24 1547 Normal [facility] Calcium [Mass/volume] in Ser um [...] (Bld) [#/Vol] 0.1 10*3/uL Normal 0.0-0.2 [facility] Comment on above: Result Comment: PERF ORMED BY: [facility] [address] [place] [address] PATHOLOGIST INSURANCE SALES MANAGER VITOR ZARATE M.D. Performed By: #### C BC, PT, HS TROP, PTT, CK, CMP, BNP ####[address] Basophils/100 WBC (Bld) 0.8 % Normal . [facility] Comment on above: Performed By: #### C BC, PT, HS TROP, PTT, CK, CMP, BNP ####[address] Eosinophils (Bld) [#/Vol] 0.2 10*3/uL Normal 0.0-0.45 [facility] Comment on above: Performed By: #### C BC, PT, HS TROP, PTT, CK, CMP, BNP ####[address] Eosinophils/100 WBC (Bld) 1.5 % Normal . [facility] Comment on above: Performed By: #### C BC, PT, HS TROP, PTT, CK, CMP, BNP ####[address] Erythrocyte distribution width (RBC) [Ratio] 14.0 % Normal 11.9-15.3 [facility] Comment on above: Performed By: #### C BC, PT, HS TROP, PTT, CK, CMP, BNP ####[address] Hematocrit (Bld) [Volume fraction] 42.3 % Normal 34.0-46.4 [facility] Comment on above: Performed By: #### C BC, PT, HS TROP, PTT, CK, CMP, BNP ####[address] Hemoglobin (Bld) [Mass/Vol] 14.3 g/dL Normal 11.8-15.4 [facility] Comment on above: Performed By: #### C BC, PT, HS TROP, PTT, CK, CMP, BNP ####[address] Lymphocytes (Bld) [#/Vol] 1.4 10*3/uL Normal 1.00-4.8 [facility] Comment on above: Performed By: #### C BC, PT, HS TROP, PTT, CK, CMP, BNP ####[address] Lymphocytes/100 WBC (Bld) 14.0 % Normal . [facility] Comment on above: Performed By: #### C BC, PT, HS TROP, PTT, CK, CMP, BNP ####[address] MCH (RBC) [Entitic mass] 31.4 pg Normal 24.7-34.3 [facility] Comment on above: Performed By: #### C BC, PT, HS TROP, PTT, CK, CMP, BNP ####[address] MCV (RBC) [Entitic vol] 92.7 fL Normal 80-100 [facility] Comment on above: Performed By: #### C BC, PT, HS TROP, PTT, CK, CMP, BNP ####[address] Mean Corpuscular HGB Conc 33.9 g/dL Normal 32.0-35.0 [facility] Comment on above: Performed By: #### C BC, PT, HS TROP, PTT, CK, CMP, BNP ####[address] Monocytes (Bld) [#/Vol] 0.6 10*3/uL Normal 0.0-0.8 [facility] Comment on above: Performed By: #### C BC, PT, HS TROP, PTT, CK, CMP, BNP ####[address] Monocytes/100 WBC (Bld) 19.87 % Normal 0.00-20.00 [facility] Comment on above: Performed By: #### C BC, PT, HS TROP, PTT, CK, CMP, BNP ####[address] Monocytes/100 WBC (Bld) 5.9 % Normal . [facility] Comment on above: Performed By: #### C BC, PT, HS TROP, PTT, CK, CMP, BNP ####[address] Neutrophils (Bld) [#/Vol] 8.1 10*3/uL High 1.8-7.7 [facility] Comment on above: Performed By: #### C BC, PT, HS TROP, PTT, CK, CMP, BNP ####[address] Neutrophils/100 WBC (Bld) 77.8 % Normal . [facility] Comment on above: Performed By: #### C BC, PT, HS TROP, PTT, CK, CMP, BNP ####[address] NRBC% 0.1 /100{WBC} Normal 0-0.5 [facility] Comment on above: Performed By: #### C BC, PT, HS TROP, PTT, CK, CMP, BNP ####[address] Platelet mean volume (Bld) [Entitic vol] 8.5 fL Normal 6.3-10.7 [facility] Comment on above: Performed By: #### C BC, PT, HS TROP, PTT, CK, CMP, BNP ####[address] Platelets (Bld) [#/Vol] 259 10*3/uL Normal 150-450 [facility] Comment on above: Performed By: #### C BC, PT, HS TROP, PTT, CK, CMP, BNP ####[address] RBC (Bld) [#/Vol] 4.56 10*6/uL Normal 3.60-5.00 [facility] Comment on above: Performed By: #### C BC, PT, HS TROP, PTT, CK, CMP, BNP ####[address] WBC (Bld) [#/Vol] 10.4 10*3/uL Normal 3.8-11.6 [facility] Comment on above: Performed By: #### C BC, PT, HS TROP, PTT, CK, CMP, BNP ####[address] Comprehensive Metabolic Pane violeta 06-30-2024 Albumin [Mass/Vol] 4.3 g/dL Normal 3.5-5.7 [facility] Comment on above: Performed By: #### C BC, PT, HS TROP, PTT, CK, CMP, BNP ####[address] Albumin/Globulin [Mass ratio] 1.8 {ratio} Normal [facility] Comment on above: Performed By: #### C BC, PT, HS TROP, PTT, CK, CMP, BNP ####[address] ALP [Catalytic activity/Vol] 66 U/L Normal 34-104 [facility] Comment on above: Performed By: #### C BC, PT, HS TROP, PTT, CK, CMP, BNP ####[address] ALT [Catalytic activity/Vol] 31 U/L Normal 7-52 [facility] Comment on above: Performed By: #### C BC, PT, HS TROP, PTT, CK, CMP, BNP ####[address] Anion gap [Moles/Vol] 16.9 mmol/L High 6.0-15.0 Th e [facility] Comment on above: Performed By: #### C BC, PT, HS TROP, PTT, CK, CMP, BNP ####[address] AST [Catalytic activity/Vol] 36 U/L Normal 13-39 [facility] Comment on above: Performed By: #### C BC, PT, HS TROP, PTT, CK, CMP, BNP ####[address] Bilirubin [Mass/Vol] 0.9 mg/dL Normal 0.3-1.0 [facility] Comment on above: Performed By: #### C BC, PT, HS TROP, PTT, CK, CMP, BNP ####[address] Calcium [Mass/Vol] 9.2 mg/dL Normal 8.6-10.3 [facility] Comment on above: Performed By: #### C BC, PT, HS TROP, PTT, CK, CMP, BNP ####[address] Chloride [Moles/Vol] 99 mmol/L Normal 98-107 [facility] Comment on above: Performed By: #### C BC, PT, HS TROP, PTT, CK, CMP, BNP ####[address] CO2 [Moles/Vol] 27.6 mmol/L Normal 21.0-31.0 [facility] Comment on above: Performed By: #### C BC, PT, HS TROP, PTT, CK, CMP, BNP ####[address] Creatinine [Mass/Vol] 1.28 mg/dL High 0.60-1.20 [facility] Comment on above: Performed By: #### C BC, PT, HS TROP, PTT, CK, CMP, BNP ####[address] Creatinine Clr Calc Pharmacy 28.68 Normal [facility] Comment on above: Result Comment: PERF ORMED BY: [place] [address] PATHOLOGIST INSURANCE SALES MANAGER VITOR ZARATE M.D. Performed By: #### C BC, PT, HS TROP, PTT, CK, CMP, BNP ####[address] GFR/1.73 sq M.predicted MDRD (S/P/Bld) [Vol rate/Area] 42.087 mL/min/{1.73_m2} Normal [facility] Comment on above: Performed By: #### C BC, PT, HS TROP, PTT, CK, CMP, BNP ####[address] Globulin (S) [Mass/Vol] 2.4 g/dL Normal [facility] Comment on above: Performed By: #### C BC, PT, HS TROP, PTT, CK, CMP, BNP ####[address] Glucose [Mass/Vol] 116 mg/dL High 70-100 [facility] Comment on above: Result Comment: [place] Glucose Reference Range is dependent on time and content of last meal. Glucose of more than 200 mg/dL in a nonstressed, ambulatory subject supports the diagnosis of Diabetes Mellitus. ADA recommended reference range Performed By: #### C BC, PT, HS TROP, PTT, CK, CMP, BNP ####[address] [place] [address] [place] Potassium [Moles/Vol] 3.5 mmol/L Normal 3.5-5.1 [facility] Comment on above: Performed By: #### C BC, PT, HS TROP, PTT, CK, CMP, BNP ####[address] Protein [Mass/Vol] 6.7 g/dL Normal 6.4-8.9 [facility] Comment on above: Performed By: #### C BC, PT, HS TROP, PTT, CK, CMP, BNP ####[address] Sodium [Moles/Vol] 140 mmol/L Normal 136-145 [facility] Comment on above: Performed By: #### C BC, PT, HS TROP, PTT, CK, CMP, BNP ####[address] Urea nitrogen [Mass/Vol] 25 mg/dL Normal 7-25 [facility] Comment on above: Performed By: #### C BC, PT, HS TROP, PTT, CK, CMP, BNP ####[address] Creatine Kinaseon 06-30-2024 CK [Catalytic activity/Vol] 43 U/L Normal 30-223 [facility] Comment on above: Performed By: #### C BC, PT, HS TROP, PTT, CK, CMP, BNP ####[address] Creatine kinase [Enzymatic a ctivity/volume] in [...] Digoxin [Mass/Vol] 1.7 ng/mL Normal 0.9-2.0 [facility] Comment on above: Result Comment: Last dose: - PERFORMED BY: [place] [address] PATHOLOGIST INSURANCE SALES MANAGER VITOR ZARATE M.D. Performed By: #### D IG ####[facility] [id number] [place] [id number] [facility] Digoxin [Mass/volume] in Ser um or PlasmaOrdered By: Vic Mendez on 06-30-2024 Digoxin [Mass/Vol] Digoxin [Mass/volume ] in Serum or Plasma 0.9-2.0 [facility] Comment on above: Last dose: - ECG 12 lead ECGon 06-30-2024 ECG 12 lead ECG [facility] [place] [address] Electrocardiograph Report Signed Patient: Austin Golden MR#: [id number] 8 : 1940 Acct:[id number] Age/Sex: 83 / F ADM Date: 06/30/24 Loc: Room: [address] [place] [address] Type: ADM IN Attending Dr: Shilpa Fenton [...] ST abnormality Confirmed by Nesha Leger MD ([id number]) on 06/30/2024 9:32:03 PM Referred By: Electronically Signed By: Nesha Leger MD Transcribed By: MUS Signed By Nesha Leger MD 06/20 Normal [facility] ECG 12 lead ECG [facility] [place] [address] Electrocardiograph Report Signed Patient: Austin Golden MR#: [id number] 8 : 1940 Acct:[id number] Age/Sex: 83 / F ADM Date: 06/30/24 Loc: 3T Room: [address] [place] [address] Type: ADM IN Attending Dr: Shilpa Fenton [...] depression laterally Confirmed by Nesha Leger MD ([id number]) on 06/30/2024 9:31:27 PM Referred By: Electronically Signed By: Nesha Leger MD Transcribed By: MUS Signed By Nesha Leger MD 06/20 Normal [facility] Eosinophils Auto (Bld) [#/Vo l]Ordered By: Vic Mendez on 06-30-2024 Eosinophils (Bld) [#/Vol] Automated eosinophil count 0.0-0.45 [facility] Eosinophils/100 WBC Auto (Bl d)Ordered By: Vic Mendez on 06-30-2024 Eosinophils/100 WBC (Bld) Automated eosinophil % . [facility] Erythrocyte distribution wid th Auto (RBC) [Ratio]Ordered By: Vic Mendez on 06-30-2024 Erythrocyte distribution width (RBC) [Ratio] Erythrocyte distribution width [Ratio] by Automated count 11.9-15.3 [facility] Globulin Calc (S) [Mass/Vol] Ordered By: iVc Mendez on 06-30-2024 Globulin (S) [Mass/Vol] Serum globulin measurement by calculation (mass/volume) [facility] Glucose [Mass/volume] in Ser um or PlasmaOrdered By: Vic Mendez on 06-30-2024 Glucose [Mass/Vol] Glucose [Mass/volume ] in [...] [Volum e fraction]Ordered By: Vic Mendez on 06-30-2024 Hematocrit (Bld) [Volume fraction] Hematocrit [Volume Fraction] of Blood by Automated count 34.0-46.4 [facility] Hemoglobin [Mass/volume] in BloodOrdered By: Vic Mendez on 06-30-2024 Hemoglobin (Bld) [Mass/Vol] Hemoglobin [Mass/volume] in Blood 11.8-15.4 [facility] INR in Platelet poor plasma by Coagulation assayOrdered By: Vic Mendez on 06-30-2024 INR Coag (PPP) [Relative time] INR [...] by Automated counOrdered By: Vic Mendez on 06-30-2024 WBC corrected for nucl RBC Auto [...] Coag (Bld) [Time] 30.9 s Normal 25.1-36.5 [facility] Comment on above: Result Comment: A he matocrit value greater than 55% may lead to inaccurate results in coagulation testing. Patients having hematocrit values >55% require a special collection tube for coagulation studies. Please contact the laboratory at [phone] for redraw instructions. PERFORMED BY: [facility] [address] [place] [id number] PATHOLOGIST INSURANCE SALES MANAGER VITOR ZARATE M.D. Performed By: #### C BC, PT, HS TROP, PTT, CK, CMP, BNP ####[facility] [address] [place] [address] [facility] Platelet mean volume Auto (B ld) [Entitic [...] (PPP) [Relative time] 1.5 {INR} Normal [facility] Comment on above: Result [...] PT, HS TROP, PTT, CK, CMP, BNP ####[facility] [place] [id number] [facility] PT Coag (PPP) [Time] 16.9 s High 9.0-12.9 [facility] Comment on above: Result Comment: A he matocrit value greater than 55% may lead to inaccurate results in coagulation testing. Patients having hematocrit values >55% require a special collection tube for coagulation studies. Please contact the laboratory at [phone] for redraw instructions. Performed By: #### C BC, PT, HS TROP, PTT, CK, CMP, BNP ####[facility] [place] [id number] [facility] Prothrombin time (PT)Ordered By: Vic Mendez on 06-30-2024 PT Coag (PPP) [Time] Prothrombin time (PT) High 9.0- 12.9 [facility] Comment on above: A hematocrit value g reater than 55% may lead to inaccurate results in coagulation testing. Patients having hematocrit values >55% require a special collection tube for coagulation studies. Please contact the laboratory at [phone] for redraw instructions. RBC Auto (Bld) [#/Vol]Ordere [...] 85.6 pg/mL Off scale high 0.0-15.0 [facility] Comment on above: Result Comment: Crit ical Result : Called to and read back by: ZENA [id number] at: 06/30/2024 21:50:47 by:[id number] PERFORMED BY: [place] [address] PATHOLOGIST INSURANCE SALES MANAGER VITOR ZARATE M.D. Performed By: #### H S TROP ####[place] [id number] [place] [id number] [facility] Troponin I High Sensitivity 101.6 pg/mL Off scale high 0.0-15.0 [facility] Comment on above: Result Comment: Crit ical Result : Called to and read back by: TOMMIE FLOYD/JOYCE at: 06/30/2024 16:12:30 by:[id number] PERFORMED BY: [place] [address] PATHOLOGIST INSURANCE SALES MANAGER VITOR ZARATE M.D. Performed By: #### C BC, PT, HS TROP, PTT, CK, CMP, BNP ####[place] [id number] [facility] Troponin I.cardiac [Mass/vol ume] in Serum or [...] back by: TOMMIE FLOYD/ER at: 06/30/2024 16:12:30 by:[id number] Urea nitrogen [Mass/volume] in Serum or PlasmaOrdered [...] By: Jadiel Borja on 06-30-2024 Study report [facility] [place] [address] XRay Report Signed Patient: Austni Golden MR#: [id number] : 1940 Acct:[id number] Age/Sex: 83 / F ADM Date: 4 Loc: ER Room: Type: [facility] ER Attending Dr: Copies to: Vic [...] Juanito Borja M.D.06/30/2024 3:39 PM Dictation Location: [place] [address] Transcribed By: [facility] 06/30/24 1539 Dictated By: Juanito Borja DO 06/30/24 1537 Signed By: 06/30/24 1539 [facility] XR chest 2V*on 06-30-2024 XR chest 2V* [facility] [address] [address] XRay Report Signed Patient: Austin Golden MR#: [id number] : 1940 Acct:[id number] Age/Sex: 83 / F ADM Date: 06/30/24 Loc: ER Room: Type: [facility] ER Attending Dr: Copies to: Vic [...] Juanito Borja M.D.06/30/2024 3:39 PM Dictation Location: [place] [address] Transcribed By: [facility] 06/30/24 1539 Dictated By: Juanito Borja DO 06/30/24 1537 Signed By: 06/30/24 1539 Normal [facility] aPTT in Platelet poor plasma [...] coagulation studies. Please contact the laboratory at [phone] for redraw instructions. [place] BARIUM SWALLOW DOUBLE [...] OralBarium Sulfate 1 Tab Route: Oral FINDINGS: Personal Lines Insurance Advisor fluoroscopic spot images of the abdomen: Non-obstructive [...] agree with the resident's interpretation. Normal [facility] RF videography Hypopharynx a nd Esophagus Views W liquid and paste contrast PO during swallowingon 06-26-2024 EXAMINATION: FL AYAZ UM SWALLOW DOUBLE CNTRST 06/26/2024 11:51 AM CLINICAL [...] OralBarium Sulfate 1 Tab Route: Oral FINDINGS: Personal Lines Insurance Advisor fluoroscopic spot images of the abdomen: Non-obstructive [...] KATIE YUNG TECHNOLOGISTS NOTE: COMPARISON: None FLUOROSCOPIST: ALVARDAO ALEXUS FLUORO TIME: 7.1 Minutes PROCEDURE: Double contrast air and barium examination of the hypopharynx and esophagus in multiple upright positions and double contrast examination of the esophagus in multiple horizontal positions was performed utilizing fluoroscopic and radiographic techniques. INTRA-PROCEDURE MEDS: Barium Sulfate 60 % 200 mL Route: OralBarium Sulfate 98 % suspension 100 mL Route: OralBarium Sulfate 1 Tab Route: Oral FINDINGS: Personal Lines Insurance Advisor fluoroscopic spot images of the abdomen: Non-obstructive [...] images and agree with the resident's interpretation. [facility] observation (narrative) [facility] videography Hypopharynx a nd Esophagus Views W liquid and paste contrast PO during swallowingOrdered By: Ivonne Brooks on 06-26-2024 [facility] Work Phone: Telephone Encounteron 2023 Veneer Jointer Authentication Interface Message Text Dr العلي office calling waiting for order to be placed for timed barium esophagogram Jazmin العلي [address] [id number] option #[address] العلي's nurse line Leela Encounter dated 05/29/[address] Yung Recommendations: Obtain timed barium esophagram or endoflip to confirm diagnosis. Dr Yung recommended pt has this procedure Telephone Information: Normal [facility] Telephone Encounteron 2023 Veneer Jointer Authentication Interface Message Text Will forward to Dr. Katie Yung. Normal [facility] Telephone Encounteron 2023 Veneer Jointer Authentication Interface Message Text Sanjuana from [facility] called and wanted to discuss nausea and weakness and unable to eat would like call to discuss Sanjuana [phone] Opt 1 then opt 3 Normal [facility] Anesthesia Postprocedure Taylor luationon 05-30-2024 Veneer Jointer Authentication Interface Message Text Anesthesia Postoperative Assessment: [...] EVENTS: No notable events documented. Normal [facility] Anesthesia Preprocedure Eval uationon 05-29-2024 Veneer Jointer Authentication Interface Message Text ASA: 2 No [...] were discussed with the patient and/or legal outside energy sales representatives. The risks, benefits and alternatives were reviewed. Questions regarding anesthesia were answered. Patient and/or legal outside energy sales representatives knows such anesthetics and procedures may be performed by Resident physicians, Certified Anesthesiologist Assistants, or Certified Nurse Anesthetists under the supervision of a physician. The patient /or the patient's legal outside energy sales representatives agree with the plan for anesthesia. MHP[employer]FORM Normal [facility] Anesthesia Transfer Of Careo n 10-10-2024 Veneer Jointer Authentication Interface Message Text Patient taken to [...] Katie Yung MD Anesthesiologist: Syed Schmidt MD BARREL LAPPER: Maggie Angela APRN-CRNA ESOPHAGOGASTRODUODENOSCOPY with HREM catheter placement Intraoperative Events: [...] of understanding of the report was received. CATE Castrejon Normal [facility] OP Noteon 05-29-2024 Veneer Jointer Authentication Interface Message Text Patient's Name: Austin Golden Date: 05/29/24 Written informed consent obtained from patient. Endoscopic procedure risks (including but not limited to perforation, infection, bloating and bleeding) benefits and alternatives explained and questions answered. Patient verbalized understanding. Based on history and airway assessment patient is not an appropriate candidate for moderate sedation and will undergo sedation with the assistance of anesthesia physician/BARREL LAPPER team. Please see corresponding note for full details. Katie Yung MD 05/29/24 1:08 PM Austin Golden 83 year old Surgical Contact Serial Number: [id number] Location: ENDO 02 Date: 05/29/2024 COAGULATING OPERATOR: Katie Yung MD ATTENDING:Katie Yung MD Procedure(s): [...] 50cm. Taped to right cheek. Esophageal dysphagia [[id number]] TEE PATH SPECIMEN SENT: no SPECIMEN: None [...] PCP. 3. F/u with Amna Powell at [facility] CC: Primary Care Provider: No primary care provider on file. PERSON COMPLETING NOTE: Katie Yung MD 05/29/2024 at 1:08 PM Patient meets criteria for discharge/transfer: Katie Yung MD Normal [facility] Procedureson 05-29-2024 Veneer Jointer Authentication Interface Message Text High Resolution Esophageal Manometry (HREM) Name: Austin Golden : 1940 Indication: Esophageal dysphagia [[id number]] Attending: Katie Yung MD no referring provider Operating Reheater: Jennifer Proctor LPN LES SUPINE UPRIGHT Residual [...] Katie Yung MD Invalid Interpretation Code [facility] Estimated glomerular filtrat ion rate (GFR) non- Americanon 05-28-2024 GFR/1.73 sq M.predicted among non-blacks MDRD (S/P/Bld) [Vol rate/Area] 30 mL/min/{1.73_m2} Low >=60 mL/min/1.7 3m 2 [facility] GFR/1.73 sq M.predicted among non-blacks MDRD (S/P/Bld) [Vol rate/Area] Estimated glomerular filtration rate (GFR) non- Low >=60 mL/min/1.7 2 [facility] Laboratory - Chemistry and C hemistry - challengeon 05-28-2024 Calcium [Mass/Vol] 9.2 mg/dL 8.5-10.1 [facility] Chloride [Moles/Vol] 97 mmol/L Low 98-107 [facility] CO2 [Moles/Vol] 27.8 mmol/L 21.0-32.0 [facility] Creatinine [Mass/Vol] 1.64 mg/dL High 0.55-1.02 [facility] GFR/1.73 sq M.predicted MDRD (S/P/Bld) [Vol rate/Area] 36 mL/min/{1.73_m2} Low >=60 mL/min/1.7 2 [facility] Glucose [Mass/Vol] 178 mg/dL High 74-106 [facility] Natriuretic peptide B (Bld) [Mass/Vol] 1199.0 pg/mL <=1800.0 [facility] Potassium [Moles/Vol] 3.2 mmol/L Low 3.5-5.1 [facility] Sodium [Moles/Vol] 137 mmol/L 136-145 [facility] Urea nitrogen [Mass/Vol] 22.0 mg/dL High 7.0-18.0 [facility] Urea nitrogen/Creatinine [Mass ratio] 13.4 mg/mg [facility] No Panel Informationon 05-28 Digoxin Level 2.1 ng/mL High 0.9-2.0 [facility] Serum or plasma anion gap de terminationon 05-28-2024 Anion gap [Moles/Vol] 15.4 mmol[facility] Anion gap [Moles/Vol] Serum or plasma an ion gap determination [facility] Digoxin [Mass/volume] in Ser um or PlasmaOrdered By: Maxwell Medrano on 04-24-2024 Digoxin [Mass/Vol] 1.8 ng/mL 0.9-2.0 [facility] Comment on above: Last dose: - Digoxin [Mass/Vol] Digoxin [Mass/volume ] in Serum or Plasma 0.9-2.0 [facility] Comment on above: Last dose: - ECG 12 Leadon 04-24-2024 Rhythm appears to be atrial fibrillation with slightly elevated heart CPACS [facility] Work Phone: Thyrotropin [Units/volume] i n Serum or PlasmaOrdered By: Maxwell Medrano on 04-24-2024 TSH Qn 1.25 m[IU]/L 0.45-5.33 [facility] TSH Qn Thyrotropin [Units/v olume] in Serum or Plasma 0.45-5.33 [facility] ECG 12 lead (Clinic Performe d)on 04-17-2024 EKG performed today shows atrial flutter atypical at a rate of 83 bpm QRS duration 70 ms QT corrected 450 ms. Rhythm strip shows the same pattern. [facility] Work Phone: [facility] Work Phone: Laboratory - Chemistry and C hemistry - challengeon 04-08-2024 Bilirubin Ql (U) Negative [facility] Glucose (U) [Mass/Vol] Negative [facility] Ketones Ql (U) Negative [facility] [...] Panel Informationon 04-08 Urine Occult Blood Negative [facility] ECG 12-LEADon 03-27-2024 ECG 12-LEAD Ventricular Rate 83 Atrial Rate 83 P-R Interval 200 QRS Duration 78 Q-T Interval 386 QTC Calculation(Bazett) 453 P [place] 132 R [place] 1 T [place] 185 QRS Count 13 Q Onset 224 [...] Asencio ([id number]) on 03/29/2024 12:51:06 PM Normal [facility] ECG 12-LEAD Ventricular Rate 84 Atrial Rate 267 QRS Duration 84 Q-T Interval 312 QTC Calculation(Bazett) 368 R [place] 6 T [place] 192 QRS Count 14 Q Onset 221 P Onset 124 P Offset 162 T Offset 377 QTC [place]eric[place] 348 Diagnosis atypical atrial flutter Cannot rule out Anterior infarct , age undetermined ST & T wave abnormality, consider inferolateral ischemia Abnormal ECG Confirmed by Maxwell Medrano ([id number]) on 03/27/2024 9:02:15 AM Normal [facility] ECG 12-LEADon 03-26-2024 ECG 12-LEAD Ventricular Rate 83 Atrial Rate 83 P-R Interval 212 QRS Duration 82 Q-T Interval 370 QTC Calculation(Bazett) 434 P [place] 74 R [place] 1 T [place] 196 QRS Count 13 Q Onset 223 P Onset 117 P Offset 156 T Offset 408 QTC Fredericia 412 Diagnosis atypical atrial flutter ST & T wave abnormality, consider inferior ischemia ST & T wave abnormality, consider anterolateral ischemia Abnormal ECG Reconfirmed by Maxwell Medrano ([id number]) on 03/26/2024 5:02:48 PM Normal [facility] ECG 12-LEAD Ventricular Rate 82 Atrial Rate 82 P-R Interval 204 QRS Duration 78 Q-T Interval 356 QTC Calculation(Bazett) 415 P [place] 95 R [place] 9 T [place] 194 QRS Count 14 Q Onset 221 P Onset 119 P Offset 154 T Offset 399 QTC Fredericia 395 Diagnosis atypical atrial flutter ST & T wave abnormality, consider inferior ischemia ST & T wave abnormality, consider anterolateral ischemia Abnormal ECG Reconfirmed by Maxwell Medrano ([id number]) on 03/26/2024 5:02:17 PM Normal [facility] ECG 12-LEAD Ventricular Rate 82 Atrial Rate 82 P-R Interval 198 QRS Duration 84 Q-T Interval 388 QTC Calculation(Bazett) 453 P [place] 97 R [place] 5 T [place] 199 QRS Count 13 Q Onset 220 P Onset 121 P Offset 159 T Offset 414 QTC Fredericia 430 Diagnosis atypical atrial flutter ST & T wave abnormality, consider inferolateral ischemia Abnormal ECG Reconfirmed by Maxwell Medrano ([id number]) on 03/26/2024 5:01:47 PM Normal [facility] ECG 12-LEADon 03-25-2024 ECG 12-LEAD Ventricular Rate 70 Atrial Rate 70 P-R Interval 204 QRS Duration 76 Q-T Interval 384 QTC Calculation(Bazett) 414 R [place] -4 T [place] 191 QRS Count 12 Q Onset 226 T Offset 418 QTC [place] 404 Diagnosis Atrial-paced rhythm Inferior infarct , age undetermined Cannot rule out Anterior infarct , age undetermined ST & T wave abnormality, consider lateral ischemia Abnormal ECG When compared with ECG of 25-MAR-2024 08:52, No significant change was found Confirmed by Maxwell Medrano ([id number]) on 03/26/2024 5:00:38 PM Normal [facility] ECG 12-LEAD Ventricular Rate 70 Atrial Rate 69 P-R Interval 200 QRS Duration 76 Q-T Interval 400 QTC Calculation(Bazett) 432 R [place] 1 T [place] 189 QRS Count 11 Q Onset 220 T Offset 420 QTC Fredericia 421 Diagnosis Atrial-paced rhythm ST & T wave abnormality, consider inferior ischemia ST & T wave abnormality, consider anterolateral ischemia Abnormal ECG Confirmed by Maxwell Medrano ([id number]) on 03/25/2024 10:00:04 AM Normal [facility] ECG 12-LEAD Ventricular Rate 84 Atrial Rate 84 P-R Interval 206 QRS Duration 82 Q-T Interval 348 QTC Calculation(Bazett) 411 P [place] 90 R [place] -11 T [place] 181 QRS Count 13 Q Onset 225 P Onset 122 P Offset 165 T Offset 399 QTC [place] 389 Diagnosis Atypical atrial flutter Inferior infarct , age undetermined ST & T wave abnormality, consider anterolateral ischemia Abnormal ECG Confirmed by Maxwell Medrano ([id number]) on 03/25/2024 9:59:54 AM Normal [facility] ECG 12-LEAD Ventricular Rate 93 Atrial Rate 93 P-R Interval 90 QRS Duration 80 Q-T Interval 368 QTC Calculation(Bazett) 457 R [place] 13 T [place] 213 QRS Count 15 Q Onset 221 P Onset 176 P Offset 198 T Offset 405 QTC Fredericia 426 Diagnosis atypical atrial flutter ST & T wave abnormality, consider inferior ischemia ST & T wave abnormality, consider anterolateral ischemia Abnormal ECG Confirmed by Maxwell Medrano ([id number]) on 03/25/2024 9:59:32 AM Normal [facility] ECG 12-LEADon 03-24-2024 ECG 12-LEAD Ventricular Rate 87 Atrial Rate 267 QRS Duration 74 Q-T Interval 324 QTC Calculation(Bazett) 389 R [place] -7 T [place] 194 QRS Count 15 Q Onset 221 T Offset 383 QTC [place] 366 Diagnosis Atrial fibrillation with occasional ventricular-paced complexes Inferior infarct , age undetermined ST & T wave abnormality, consider lateral ischemia Abnormal ECG When compared with ECG of 23-MAR-2024 12:21, (unconfirmed) Vent. rate has increased BY 10 BPM Confirmed by Katie Asencio ([id number]) on 03/24/2024 5:29:54 PM Normal [facility] ECG 12-LEADon 03-23-2024 ECG 12-LEAD Ventricular Rate 77 Atrial Rate 394 QRS Duration 76 Q-T Interval 324 QTC Calculation(Bazett) 366 R [place] -2 T [place] 190 QRS Count 12 Q Onset 221 [...] James ([id number]) on 03/24/2024 10:23:54 AM Normal [facility] ECG 12-LEAD Ventricular Rate 83 Atrial Rate 394 QRS Duration 74 Q-T Interval 330 QTC Calculation(Bazett) 387 R [place] -7 T [place] 181 QRS Count 14 Q Onset 221 T Offset 386 QTC [place] 367 Diagnosis Atrial fibrillation with frequent ventricular-paced complexes Inferior infarct , age undetermined ST & T wave abnormality, consider anterolateral ischemia Abnormal ECG When compared with ECG of 22-MAR-2024 11:37, (unconfirmed) Electronic ventricular 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 Sinus rhythm Confirmed by Katie James ([id number]) on 03/24/2024 10:23:04 AM Normal [facility] ECG 12-LEADon 03-22-2024 ECG 12-LEAD Ventricular Rate 89 Atrial Rate 89 P-R Interval 194 QRS Duration 84 Q-T Interval 328 QTC Calculation(Bazett) 399 P [place] 99 R [place] -2 T [place] 187 QRS Count 15 Q Onset 222 P Onset 125 P Offset 163 T Offset 386 QTC Fredericia 373 Diagnosis Normal sinus rhythm ST & T wave abnormality, consider inferolateral ischemia Abnormal ECG No previous ECGs available Confirmed by Katie James ([id number]) on 03/24/2024 10:22:29 AM Normal [facility] Basophils Auto (Bld) [#/Vol] on [...] challengeon 03-21-2024 Calcium [Mass/Vol] 9.0 mg/dL 8.5-10.1 [facility] Chloride [Moles/Vol] 105 mmol/L 98-107 [facility] CO2 [Moles/Vol] 25.7 mmol/L 21.0-32.0 [facility] Creatinine [Mass/Vol] 1.16 mg/dL High 0.55-1.02 [facility] GFR/1.73 sq M.predicted MDRD (S/P/Bld) [Vol rate/Area] 54 mL/min/{1.73_m2} Low >=60 [facility] Glucose [Mass/Vol] 127 mg/dL High 74-106 [facility] Potassium [Moles/Vol] 3.9 mmol/L 3.5-5.1 [facility] Sodium [Moles/Vol] 139 mmol/L 136-145 [facility] Urea nitrogen [Mass/Vol] 26.0 mg/dL High 7.0-18.0 [...] 03-21-2024 MCHC (RBC) [Mass/Vol] 33.8 g/dL 29.9-35.2 [facility] MCV Auto (RBC) [Entitic vol] on 03-21-2024 [...] Comment on above: RESULTS CALLED TO ANTONIA MCGILL,RNCUT-OFF POINTS HAVE BEEN ESTABLISHED BASED ON THE [...] Eosinophils # (Auto) 0.1 10 3/uL 0.0-0.7 [facility] Immature Granulocyte # (Auto) 0.04 10 3/uL [...] (Bld) [#/Vol] 3.80 10 6/uL Low 4.20-5.40 [facility] Serum or plasma anion gap de terminationon 03-21-2024 Anion gap [Moles/Vol] 12.2 mmol/L [facility] ECG 12 Leadon 02-28-2024 [facility] Work Phone: EKG performed today shows atrial flutter atypical at a rate of 95 bpm QRS duration 76 ms QT corrected 402 ms. Rhythm strip shows the same pattern. [facility] Work Phone: [facility] Work Phone: ECG 12 Leadon 02-25-2024 Atrial flutter with 221 AV block [facility] Work Phone: Basophils Auto (Bld) [#/Vol] [...] Health ALP [Catalytic activity/Vol] 85 U/L 46-116 [facility] ALT [Catalytic activity/Vol] 32 U/L 14-59 [facility] AST [Catalytic activity/Vol] 20 U/L 15-37 [facility] Bilirubin [Mass/Vol] 0.7 mg/dL 0.2-1.0 [facility] Calcium [Mass/Vol] 9.0 mg/dL 8.5-10.1 [facility] Chloride [Moles/Vol] 103 mmol/L 98-107 [facility] CO2 [Moles/Vol] 27.1 mmol/L 21.0-32.0 [facility] Creatinine [Mass/Vol] 0.82 mg/dL 0.55-1.02 [facility] GFR/1.73 sq M.predicted MDRD (S/P/Bld) [Vol rate/Area] mL/min/{1.73_m2} >=60 [facility] Glucose [Mass/Vol] 122 mg/dL High 74-106 [facility] Potassium [Moles/Vol] 4.6 mmol/L 3.5-5.1 [facility] Protein [Mass/Vol] 5.8 g/dL Low 6.4-8.2 [facility] [...] 02-08-2024 MCHC (RBC) [Mass/Vol] 33.4 g/dL 29.9-35.2 [facility] MCV Auto (RBC) [Entitic vol] on 02-08-2024 [...] Eosinophils # (Auto) 0.0 10 3/uL 0.0-0.7 [facility] Immature Granulocyte # (Auto) 0.21 10 3/uL [...] RBC (Bld) [#/Vol] 4.37 10 6/uL 4.20-5.40 [facility] Serum or plasma albumin/glob ulin mass ratioon 02-08-2024 Albumin/Globulin [Mass ratio] 0.9 {ratio} [facility] Serum or plasma anion gap de terminationon 02-08-2024 Anion gap [Moles/Vol] 9.5 mmol/L [facility] Basophils Auto (Bld) [#/Vol] on 02-07-2024 Basophils [...] challengeon 02-07-2024 Bilirubin Ql (U) Negative NEGATIVE [facility] Glucose (U) [Mass/Vol] Negative NE[facility]IVE [facility] Ketones Ql (U) Negative NEGATIVE [facility] pH (U) 6.0 [pH] 5.0-9.0 [facility] Specific gravity (U) [Rel density] >=1.030 Abnormal 1.005-1.02 5 [facility] Urobilinogen Qn (U) 1.0 {Sherrell'U}/dL 0.2-1.0 [facility] Albumin [Mass/Vol] 3.1 g/dL Low 3.4-5.0 [facility] ALP [Catalytic activity/Vol] 107 U/L 46-116 [facility] ALT [Catalytic activity/Vol] 38 U/L 14-59 [facility] AST [Catalytic activity/Vol] 19 U/L 15-37 [facility] Bilirubin [Mass/Vol] 0.7 mg/dL 0.2-1.0 [facility] Bilirubin.direct [Mass/Vol] 0.2 mg/dL 0.0-0.2 [facility] Lipase [Catalytic activity/Vol] 66.0 U/L 16.0-77.0 [facility] Natriuretic peptide B (Bld) [Mass/Vol] 1679.0 pg/mL <=1800.0 [facility] Protein [Mass/Vol] 6.3 g/dL Low 6.4-8.2 [facility] Calcium [Mass/Vol] 9.3 mg/dL 8.5-10.1 [facility] Chloride [Moles/Vol] 104 mmol/L 98-107 [facility] CO2 [Moles/Vol] 25.4 mmol/L 21.0-32.0 [facility] Creatinine [Mass/Vol] 1.03 mg/dL High 0.55-1.02 [facility] GFR/1.73 sq M.predicted MDRD (S/P/Bld) [Vol rate/Area] mL/min/{1.73_m2} >=60 [facility] Glucose [Mass/Vol] 137 mg/dL High 74-106 [facility] Potassium [Moles/Vol] 4.6 mmol/L 3.5-5.1 [facility] Sodium [Moles/Vol] 137 mmol/L 136-145 [facility] Urea nitrogen [Mass/Vol] 35.0 mg/dL High 7.0-18.0 [...] 02-07-2024 MCHC (RBC) [Mass/Vol] 33.0 g/dL 29.9-35.2 [facility] MCV Auto (RBC) [Entitic vol] on 02-07-2024 [...] [facility] Urine Occult Blood Negative NEGATIVE [facility] Troponin I High Sensitivity 50.2 pg/mL 4.0-51.3 [...] Eosinophils # (Auto) 0.0 10 3/uL 0.0-0.7 [facility] Immature Granulocyte # (Auto) 0.29 10 3/uL [...] RBC (Bld) [#/Vol] 4.94 10 6/uL 4.20-5.40 [facility] Serum or plasma albumin/glob ulin mass ratioon 02-07-2024 Albumin/Globulin [Mass ratio] 1.0 {ratio} [facility] Serum or plasma anion gap de terminationon 02-07-2024 Anion gap [Moles/Vol] 12.2 mmol/L [facility] ECG 12 Leadon 01-22-2024 Normal sinus rhythm with normal QTc interval [facility] Work Phone: Magnesium [Mass/volume] in S vaughn or PlasmaOrdered By: Izzy Capps on 01-19-2024 Magnesium [Mass/Vol] 1.9 mg/dL 1.9-2.7 [facility] Activated partial thrombopla stin time (aPTT) in platelet poor plasma by coagulation aOrdered By: Vic Mendez on 01-18-2024 aPTT Coag (PPP) [Time] 31.3 s 25.1-36.5 [facility] Comment on above: A hematocrit value g reater than 55% may lead to inaccurate results in coagulation testing. Patients having hematocrit values >55% require a special collection tube for coagulation studies. Please contact the laboratory at [phone] for redraw instructions. Alanine aminotransferase [En zymatic [...] on 01-18-2024 Bilirubin [Mass/Vol] 0.9 mg/dL 0.3-1.0 [facility] Calcium [Mass/volume] in Ser um or PlasmaOrdered By: Vic Mendez 01-18-2024 Calcium [Mass/Vol] 9.2 mg/dL 8.6-10.3 [facility] Carbon dioxide, total [Moles /volume] in Serum or PlasmaOrdered By: Vic Mendez 01-18-2024 CO2 [Moles/Vol] 23.4 mmol/L 21.0-31.0 [facility] Chloride [Moles/volume] in S vaughn or PlasmaOrdered By: Vic Mendez on 01-18-2024 Chloride [Moles/Vol] 108 mmol/L High 98-107 [facility] Creatine kinase [Enzymatic a ctivity/volume] in Serum or PlasmaOrdered By: Vic Mendez on 01-18-2024 CK [Catalytic activity/Vol] 31 U/L 30-223 [facility] Creatinine [Mass/volume] in Serum or PlasmaOrdered By: Vic Mendez on 01-18-2024 Creatinine [Mass/Vol] 0.96 mg/dL 0.60-1.20 [facility] Eosinophils Auto (Bld) [#/Vo l]Ordered By: Vic [...] Calc (S) [Mass/Vol] Ordered By: Vic Mendez 01-18-2024 Globulin (S) [Mass/Vol] 2.3 g/dL [facility] Glucose [Mass/volume] in Ser um or PlasmaOrdered By: Vic Mendez 01-18-2024 Glucose [Mass/Vol] 102 mg/dL High 70-100 [...] Hemoglobin [Mass/volume] in BloodOrdered By: Vic Mendez 01-18-2024 Hemoglobin (Bld) [Mass/Vol] 15.5 g/dL High 11.8-15.4 [facility] INR in Platelet poor plasma by Coagulation assayOrdered By: Vic Mendez 01-18-2024 INR Coag (PPP) [Relative time] 1.5 [...] 01-18-2024 MCHC (RBC) [Mass/Vol] 33.7 g/dL 32.0-35.0 [facility] MCV Auto (RBC) [Entitic vol] Ordered By: Vic Mendez on 01-18-2024 MCV (RBC) [Entitic vol] 92.6 fL 80-100 [facility] Magnesium [Mass/volume] in S vaughn or PlasmaOrdered By: Vic Mendez on 01-18-2024 Magnesium [Mass/Vol] 1.9 mg/dL 1.9-2.7 [facility] Monocyte distribution width [Entitic volume] in [...] on 01-18-2024 Potassium [Moles/Vol] 4.1 mmol/L 3.5-5.1 [facility] Protein [Mass/volume] in Ser um or PlasmaOrdered By: Vic Mendez on 01-18-2024 Protein [Mass/Vol] 6.0 g/dL Low 6.4-8.9 [facility] Prothrombin time (PT)Ordered By: Vic Mendez on 01-18-2024 PT Coag (PPP) [Time] 16.8 s High 9.0-12.9 [facility] Comment on above: A hematocrit value g reater than 55% may lead to inaccurate results in coagulation testing. Patients having hematocrit values >55% require a special collection tube for coagulation studies. Please contact the laboratory at [phone] for redraw instructions. RBC Auto (Bld) [#/Vol]Ordere d By: Vic Mendez on 01-18-2024 RBC (Bld) [#/Vol] 4.96 10*6/uL 3.60-5.00 [facility] [place] [facility] Serum or plasma albumin/glob ulin mass ratioOrdered By: Vic Mendez on 01-18-2024 Albumin/Globulin [Mass ratio] 1.6 {ratio} [facility] Serum or plasma anion gap de terminationOrdered By: Vic Mendez on 01-18-2024 Anion gap [Moles/Vol] 11.7 mmol/L 6.0-15.0 [facility] Sodium [Moles/volume] in Ser um or PlasmaOrdered By: Vic Mendez on 01-18-2024 Sodium [Moles/Vol] 139 mmol/L 136-145 [facility] Thyrotropin [Units/volume] i n Serum or PlasmaOrdered [...] 01-18-2024 WBC (Bld) [#/Vol] 10.4 10*3/uL 3.8-11.6 [facility] [place] [facility] ECG 12 Leadon 09-19-2023 Rhythm appeared to b e atrial flutter with 2/ 1 AV block with nonspecific ST-T changes CPACS [facility] Work Phone: US Heart Transthoracicon Aortic Valve Area by Continuity of Peak Velocity 2.36 [facility] Work Phone: [phone] Aortic Valve Area by Continuity of VTI 2.33 [facility] Work Phone: [phone] AV mn grad 2.0 [facility] Work Phone: [phone] AV pk grad 3.5 [facility] Work Phone: [phone] AV pk douglas 0.94 [facility] Work Phone: [phone] LV A4C EF 63.6 [facility] Work Phone: [phone] LVIDd 3.20 [facility] Work Phone: [phone] LVOT diam 1.90 [facility] Work Phone: [phone] MV avg E/e' ratio 20.20 [facility] Work Phone: [phone] RVSP 32.8 [facility] Work Phone: [address], [address] [address] TRANSTHORACIC ECHOCARDIOGRAM REPORT Patient Name: AUSTIN Arriaga Physician: Zurdo Mac MD Study Date: 08/21/2023 Ordering Provider: Zurdo MAC MRN/PID: [id number] Fellow: Nurse: Date of /Age: 1 1940 / 82 years Recreational Aide: Iqra Pham RDCS, RVT Gender: F Additional Staff: Height: 149.86 cm Admit Date: Weight: 74.84 kg Admission Status: BSA: 1.70 m2 Department Location: [facility] Blood Pressure: 116 /64 mmHg Study Type: TRANSTHORACIC ECHO (TTE) COMPLETE Diagnosis/ICD: Chronic diastolic (congestive) heart failure (CHF)-I50.32; Essential (primary) hypertension-I10; Dyspnea, unspecified-R06.00 Indication: Atrial Fibrillation, Sick Sinus Syndrome, Hyerlipidemia, Pacemaker, Overweight, CKD-Stage III CPT Codes: Echo Complete w Full Doppler-90713 Study Detail: The following Echo studies were [...] not included)... Debbie Dominique MD - 08/22/2023 [place] [address] [facility], [address], [place] [address] TRANSTHORACIC ECHOCARDIOGRAM REPORT Patient Name: AUSTIN GOLDEN Reading Physician: [id number] Mac MD Study Date: 08/21/2023 Ordering Provider: [id number] DEBBIE MAC MRN/PID: [id number] Fellow: Nurse: Date of /Age: 1 1940 / 82 years Recreational Aide: Iqra Pham RDCS, RVT Gender: F Additional Staff: Height: 149.86 cm Admit Date: Weight: 74.84 kg Admission Status: BSA: 1.70 m2 Department Location: [facility] Blood Pressure: 116 /64 mmHg Study Type: TRANSTHORACIC ECHO (TTE) COMPLETE Diagnosis/ICD: Chronic diastolic (congestive) heart failure (CHF)-I50.32; Essential (primary) hypertension-I10; Dyspnea, unspecified-R06.00 Indication: Atrial Fibrillation, Sick Sinus Syndrome, Hyerlipidemia, Pacemaker, Overweight, CKD-Stage III CPT Codes: Echo Complete w Full Doppler-37490 Study Detail: The following Echo studies were [...] 0.7 m/s (0.6-0.9m/s) PV Max P.8 mmHg [id number] Debbie Mac MD Electronically signed on 08/22/2023 at 12:31:20 PM Final [facility] Work Phone: [facility] Work Phone: ECG 12 Leadon 05-31-2023 Paced atrial rhythm with normal QTc interval [facility] Work Phone: Alkaline phosphatase [Enzyma tic [...] on 03-05-2023 Bilirubin [Mass/Vol] 0.7 mg/dL 0.3-1.0 [facility] Lipase [Enzymatic activity/v olume] in Serum [...] on 02-26-2023 Calcium [Mass/Vol] 9.0 mg/dL 8.6-10.3 [facility] Carbon dioxide, total [Moles /volume] in Serum or PlasmaOrdered By: Wilbur Watson on 02-26-2023 CO2 [Moles/Vol] 24.7 mmol/L 21.0-31.0 [facility] Chloride [Moles/volume] in S vaughn or PlasmaOrdered By: Wilbur Watson on 02-26-2023 Chloride [Moles/Vol] 108 mmol/L 98-107 [facility] Creatinine [Mass/volume] in Serum or PlasmaOrdered By: Wilbur Watson on 02-26-2023 Creatinine [Mass/Vol] 1.03 mg/dL 0.60-1.20 [facility] Eosinophils Auto (Bld) [#/Vo l]Ordered By: Wilbur [...] on 02-26-2023 Glucose [Mass/Vol] 81 mg/dL 70-100 [facility] Comment on above: [...] 02-26-2023 MCHC (RBC) [Mass/Vol] 33.8 g/dL 32.0-35.0 [facility] MCV Auto (RBC) [Entitic vol] Ordered [...] on 02-26-2023 Potassium [Moles/Vol] 4.3 mmol/L 3.5-5.1 [facility] RBC Auto (Bld) [#/Vol]Ordere d By: Wilbur Watson on 02-26-2023 RBC (Bld) [#/Vol] 4.88 10*6/uL 3.60-5.00 [facility] [place] [facility] Serum or plasma anion gap de terminationOrdered By: Wilbur Watson on 02-26-2023 Anion gap [Moles/Vol] 12.6 mmol/L 6.0-15.0 [facility] Sodium [Moles/volume] in Ser um or PlasmaOrdered By: Wilbur Watson on 02-26-2023 Sodium [Moles/Vol] 141 mmol/L 136-145 [facility] Urea nitrogen [Mass/volume] in Serum or PlasmaOrdered By: Wilbur Watson on 02-26-2023 Urea nitrogen [Mass/Vol] 32 mg/dL 7-25 [facility] WBC Auto (Bld) [#/Vol]Ordere d By: Wilbur Watson on 02-26-2023 WBC (Bld) [#/Vol] 8.3 10*3/uL 3.8-11.6 [facility] Falls Screening (Age 18+)on 01-25-2023 Fall risk assessment a) No falls within the last year [facility] Work Phone: Tobacco use status CPHS b) No [facility] Work Phone: Office Visit (Cardiology)on [...] TABLET B (more content not included)... Normal [facility] Activated partial thrombopla stin time (aPTT) in platelet poor plasma by coagulation aOrdered By: Debbie Mac on 01-09-2023 aPTT Coag (PPP) [Time] 19.5 s 25.1-36.5 [facility] Basophils Auto (Bld) [#/Vol] Ordered By: [...] on 01-09-2023 CO2 [Moles/Vol] 25.6 mmol/L 21.0-31.0 [facility] Chloride [Moles/volume] in S vaughn or PlasmaOrdered By: Debbie Mac on 01-09-2023 Chloride [Moles/Vol] 106 mmol/L 98-107 [facility] Cholesterol [Mass/volume] in Serum or PlasmaOrdered By: Debbie Mac on 01-09-2023 Cholesterol [Mass/Vol] 135 mg/dL 140-200 [facility] Comment on above: Chol less than [...] on 01-09-2023 Creatinine [Mass/Vol] 0.98 mg/dL 0.60-1.20 [facility] Eosinophils Auto (Bld) [#/Vo l]Ordered By: Debbie [...] Cholesterol [Mass/Vol] 135\S\135 below low threshold 140-200 [facility] Work Phone: Comment on above: Chol less than 200 m g/dl low risk Chol 201-239 mg/dl borderline risk Chol 240 mg/dl and greater high risk Cholesterol in LDL [Mass/Vol] 45\S\45 Normal 0-100 [facility] Work Phone: Comment on above: LDL ATP III CLASSIFI CATION LDL less than 100 mg/dL Optimal LDL 100-129 mg/dL Near or above optimal LDL 130-159 mg/dL Borderline high LDL 160-189 mg/dL High LDL greater than 189 mg/dL Very high Laboratory - CoagulationOrde red By: Debbie Mac on 01-09-2023 PT Coag (PPP) [Time] 11.5 s 9.0-12.9 [facility] Leukocytes [#/volume] correc anne marie for [...] 01-09-2023 MCHC (RBC) [Mass/Vol] 33.5 g/dL 32.0-35.0 [facility] MCV Auto (RBC) [Entitic vol] Ordered [...] No Panel Informationon 01-09 74.8\S\74.[address] [facility] Work Phone: 8.8\S\8.8 Normal 6.3-10.7 [facility] Work Phone: 167\S\167 Normal 150-450 [facility] Work Phone: 14.5\S\14.5 Normal 11.9-15.3 [facility] Work Phone: 33.5\S\33.5 Normal 32.0-35.0 [facility] Work Phone: 29.8\S\29.8 Normal 24.7-34.3 [facility] Work Phone: 5.3\S\5.3 Normal 1.8-7.7 [facility] Work Phone: 0.1\S\0.1 Normal 0-0.5 [facility] Work Phone: 0.6\S\0.[address] [facility] Work Phone: 2.9\S\2.[address] [facility] Work Phone: 7.0\S\7.[address] [facility] Work Phone: 14.7\S\14.7 Normal 11.8-15.4 [facility] Work Phone: 0.0\S\0.0 Normal 0.0-0.2 [facility] Work Phone: Comment on above: PERFORMED BY:[facility] [place] [place], [place] [id number] MEDICAL DIRECTORVITOR ZARATE M.D. 0.2\S\0.2 Normal 0.0-0.45 [facility] Work Phone: [phone] 0.5\S\0.5 Normal 0.0-0.8 [facility] Work Phone: [phone] 1.0\S\1.0 Normal 1.00-4.8 [facility] Work Phone: [phone] 89.1\S\89.1 Normal 80-100 [facility] Work Phone: [phone] 43.9\S\43.9 Normal 34.0-46.4 [facility] Work Phone: [phone] 4.92\S\4.92 Normal 3.60-5.00 [facility] Work Phone: [phone] 7.1\S\7.1 Normal 3.8-11.6 [facility] Work Phone: [phone] 4.5\S\4.5 Normal 3.5-5.1 [facility] Work Phone: [phone] Comment on above: PERFORMED BY:[facility] [place], [place] [phone] MEDICAL DIRECTORVITOR ZARATE M.D. 1.8\S\1.8 Normal <5.0 [facility] Work Phone: [phone] Comment on above: PERFORMED BY:[place] [address] [address] [place], [place] [phone] MEDICAL DIRECTORVITOR ZARATE M.D. 13\S\[address] [facility] Work Phone: [phone] 69\S\69 Normal 0-149 [facility] Work Phone: [phone] Comment on above: TRIG ATP III CLASSIF ICATION TRIG less than 150 mg/dL Normal TRIG 150-199 mg/dL Borderline high TRIG 200-500 mg/dL High TRIG greater than 500 mg/dL Very high Standard traceable to the Center for Disease Conrtrol and Prevention (CDC) test method. 76\S\76 Normal 35-85 [facility] Work Phone: [phone] Comment on above: HDL CHOL ATP-III CLA SSIFICATION Cardiovascular Risk HDL > or equal to 60 mg/dL LOW HDL < 40 mg/dL HIGH 19.5\S\19.5 below low threshold 25.1-36.5 [facility] Work Phone: [phone] Comment on above: PERFORMED BY:[place] [address] [address] [place] [phone] MEDICAL DIRECTORVITOR ZARATE M.D. 1.0\S\1.[address] [facility] Work Phone: [phone] Comment on above: INR Therapeutic Rang e [...] valves: 3 - 4.5 11.5\S\11.5 Normal 9.0-12.9 [facility] Work Phone: [phone] Test not performed\S \Test not performed Normal 6.0-15.0 [facility] Work Phone: [phone] 25.6\S\25.6 Normal 21.0-31.0 [facility] Work Phone: [phone]\S\106 Normal 98-107 [facility] Work Phone: [phone] Normal 3.5-5.1 [facility] Work Phone: [phone] Comment on above: Specimen hemolyzed, redraw requested 138\S\138 Normal 136-145 [facility] Work Phone: [phone] 22\S\22 Normal 7-25 [facility] Work Phone: [phone] 40.90\S\40.[address] [facility] Work Phone: [phone] Comment on above: PERFORMED BY:[facility] [place] [phone] MEDICAL DIRECTORVITOR ZARATE M.D. 58.349\S\58.[address] [facility] Work Phone: [phone] 0.98\S\0.98 Normal 0.60-1.20 [facility] Work Phone: No Panel InformationOrdered [...] on 01-09-2023 Potassium [Moles/Vol] 4.5 mmol/L 3.5-5.1 [facility] RBC Auto (Bld) [#/Vol]Ordere d By: Debbie Mac on 01-09-2023 RBC (Bld) [#/Vol] 4.92 10*6/uL 3.60-5.00 [facility] [place] [facility] Serum or plasma anion gap de terminationOrdered By: Debbie Mac on 01-09-2023 Anion gap [Moles/Vol] TNP [facility] Comment on above: Test not performed Serum [...] in adult Healthy Weight Tips; Status:Complete; Done: [id number] Some eating tips that can help you lose weight.; Status:Complete; Done: [id number] Diastolic heart failure, Dyspnea, Essential hypertension, benign, Persistent atrial fibrillation, 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 Cardiac Catherization; Status:Active; Requested for:[id number]; Persistent atrial fibrillation IO EKG Electrocardiogram- 12 Lead; Status:Complete; Done: [id number] SocHx: Never a smoker Tobacco Use Screening; Status:Complete; Done: [id number] Patient Instructions Please bring all medicines, vitamins, [...] and alternat (more content not included)... Normal [facility] TROPONIN, HIGH SENSITIVITYon 01-04-2023 HSTROP 73.1 pg/mL Critically high 4.0-51.3 [facility] Comment on above: Result Comment: CUT- OFF POINTS HAVE BEEN ESTABLISHED BASED ON THE FOURTH UNIVERSAL DEFINITIONS OF MYOCARDIAL INFARCTION. THE UPPER REFERENCE LIMIT (URL) OF TROPONIN, DEFINED THE 99TH PERCENTILE OF cTnI DISTRIBUTION IN A REFERENCE POPULATION, HAS BEEN CONFIRMED THE DECISION THRESHOLD FOR [place] DIAGNOSIS. Performed By: #### H STROPN #### [facility] [address] [place], [place] [address] Dr. Lori Sutton Tobacco Screening.on 023 Tobacco use status CP b) No [facility] Work Phone: XR CHEST 1 Von 01-04-2023 [...] Large hiatal hernia. Electronically authenticated by: LUCIEN UNLU Date: 2023-01-03 22:39 Normal [facility] BNPon 01-03-2023 Natriuretic peptide B (Bld) [Mass/Vol] 438.0 pg/mL Normal <=1,800.0 [facility] Comment on above: Performed By: #### B [employer] EXCHANGE ARCHITECT ####[facility] [address] [place], [place] [address]YuDr. Lori Sutton CBC AUTO DIFFon 01-03-2023 BASO # 0.0 103/ul Normal 0.0-0.1 [facility] Comment on above: Performed By: #### C BC ####[facility] [address] [place] [id number]. Lori Sutton Basophils/100 WBC (Bld) 0.7 % Normal 0.2-2.0 [facility] Comment on above: Performed By: #### C BC ####[facility] [address] [place], [place] [address]Dr. Lori Sutton EO # 0.2 103/ul Normal 0.0-0.7 [facility] Comment on above: Performed By: #### C BC ####[facility] [address] [place], [place] [address]Dr. Lori Sutton Eosinophils/100 WBC (Bld) 4.2 % Normal 0.9-7.0 [facility] Comment on above: Performed By: #### C BC ####[facility] [address] [place], [place] [address]Dr. Lori Sutton Erythrocyte distribution width (RBC) [Ratio] 13.7 % Normal 11.0-15.0 [facility] Comment on above: Performed By: #### C BC ####[facility] [address] [place], [place] [address]Dr. Lori Sutton Hematocrit (Bld) [Volume fraction] 46.1 % Normal 36.0-48.0 [facility] Comment on above: Performed By: #### C BC ####[facility] [address] [place], [place] [address]Dr. Lori Sutton Hemoglobin (Bld) [Mass/Vol] 14.7 g/dL Normal 12.0-16.0 [facility] Comment on above: Performed By: #### C BC ####[facility] [address] [place], [place] [address]Dr. Lori Sutton IG # 0.01 10e3/ul Normal 0.00-0.03 [facility] Comment on above: Performed By: #### C BC ####[facility] [address] [place], [place] [address]Dr. Lori Sutton IG % 0.2 % Normal 0.0-0.5 [facility] Comment on above: Performed By: #### C BC ####[facility] [address] [place] [address]Dr. Lori Sutton LYMPH # 1.3 103/ul Normal 1.2-3.8 [facility] Comment on above: Performed By: #### C BC ####[facility] [address] [place] [address]Dr. Lori Sutton Lymphocytes/100 WBC (Bld) 22.9 % Normal 20.5-60.0 [facility] Comment on above: Performed By: #### C BC ####[facility] [address] [place] [address]Dr. Lori Sutton MANUAL DIFF REQ NO Normal [facility] Comment on above: Performed By: #### C BC ####[facility] [address] [place] [address]Dr. Lori Sutton MCH (RBC) [Entitic mass] 29.7 pg Normal 26.7-34.0 [facility] Comment on above: Performed By: #### C BC ####[facility] [address] [place] [address]Dr. Lori Sutton MCHC (RBC) [Mass/Vol] 31.9 g/dL Normal 29.9-35.2 [facility] Comment on above: Performed By: #### C BC ####[facility] [address] [place] [address]Dr. Lori Sutton MCV (RBC) [Entitic vol] 93.1 fL Normal 81.0-99.0 [facility] Comment on above: Performed By: #### C BC ####[facility] [address] [place] [address]Dr. Lori Sutton MONO # 0.3 103/ul Normal 0.3-0.8 [facility] Comment on above: Performed By: #### C BC ####[facility] [address] [place] [address]Dr. Lori Sutton Monocytes/100 WBC (Bld) 4.7 % Normal 1.7-12.0 [facility] Comment on above: Performed By: #### C BC ####[facility] [address] [place] [address]Dr. Lori Sutton NEUT # 3.9 103/ul Normal 1.4-6.5 [facility] Comment on above: Performed By: #### C BC ####[facility] [address] [place] [address]Dr. Lori Sutton Neutrophils/100 WBC (Bld) 67.3 % Normal 43.0-75.0 [facility] Comment on above: Performed By: #### C BC ####[facility] [address] [place] [address]Dr. Lori Sutton Platelet mean volume (Bld) [Entitic vol] 10.5 fL Normal 9.5-13.5 [facility] Comment on above: Performed By: #### C BC ####[facility] [address] [place], [place] [address]Dr. Lori Sutton PLT 211 103/ul Normal 150-450 [facility] Comment on above: Performed By: #### C BC ####[facility] [address] [place], [place] [address]Dr. Lori Sutton RBC 4.95 106/ul Normal 4.20-5.40 [facility] Comment on above: Performed By: #### C BC ####[facility] [address] [place] [address]Dr. Lori Sutton WBC 5.7 103/ul Normal 4.0-11.0 [facility] Comment on above: Performed By: #### C BC ####[facility] [address] [place], [place] [address]Dr. Lori Sutton D-DIMERon 01-03-2023 D-DIMER 0.26 mg/L FEU Normal <=0.59 [facility] Comment on above: Performed By: #### D DIM ####[facility] [address] [place] [id number]. Lori Sutton D-DIMER COMMENTS SEE BELOW Normal [facility] Comment on above: Result Comment: Incr [...] and generalized hospitalization. Performed By: #### D [facility] ####[facility] [address] [place], [place] [address]Bl. Lori Sutton Office Visit (Cardiology)on 01-03-2023 Follow-up [...] Lead; Status:Active - Perform Order,Retrospective Authorization; Requested for:[id number]; SocHx: Never a smoker Tobacco Use Screening; Status:Complete; Done: [id number] Patient Instructions Continue same medications/treatment. Patient educated [...] fibrillation for which she started seeing [facility] since 2020 after she was hospitalized in [facility] for bradycardia. Adjustment of her medical [...] therapy. Patient is being evaluated recently at [facility] for ablation therapy for atrial [...] Albumin [Mass/Vol] 3.8 g/dL Normal 3.4-5.0 [facility] Comment on above: Performed By: #### C LESTER, HSTROPN ####[facility] [address] [place] [address]Dr. Lori Sutton Albumin/Globulin [Mass ratio] 1.2 {ratio} Normal [facility] Comment on above: Performed By: #### C LESTER, HSTROPN ####[facility] [address] [place] [address]Dr. Lori Sutton ALP [Catalytic activity/Vol] 101 U/L Normal 46-116 [facility] Comment on above: Performed By: #### C LESTER, HSTROPN ####[facility] [address] [place] [address]Dr. Lori Sutton ALT [Catalytic activity/Vol] 25 U/L Normal 14-59 [facility] Comment on above: Performed By: #### C LESTER, HSTROPN ####[facility] [address] [place] [address]Dr. Lori Sutton Anion gap [Moles/Vol] 15.5 mmol/L Normal Th e [facility] Comment on above: Performed By: #### C LESTER, HSTROPN ####[facility] [address] [place] [address]Dr. Lori Sutton AST [Catalytic activity/Vol] 24 U/L Normal 15-37 [facility] Comment on above: Performed By: #### C LESTER, HSTROPN ####[facility] [address] [place] [address]Dr. Lori Sutton Bilirubin [Mass/Vol] 0.8 mg/dL Normal 0.2-1.0 [facility] Comment on above: Performed By: #### C LESTER, HSTROPN ####[facility] [address] [place], [place] [address]Dr. Lori Sutton Calcium [Mass/Vol] 8.8 mg/dL Normal 8.5-10.1 [facility] Comment on above: Performed By: #### C LESTER, HSTROPN ####[facility] [address] [place], [place] [address]Dr. Lori Sutton Chloride [Moles/Vol] 105 mmol/L Normal 98-107 [facility] Comment on above: Performed By: #### C LESTER, HSTROPN ####[facility] [address] [place], [place] [address]Dr. Lori Sutton CO2 [Moles/Vol] 24.5 mmol/L Normal 21.0-32.0 [facility] Comment on above: Performed By: #### C LESTER, HSTROPN ####[facility] [address] [place], [place] [address]Dr. Lori Sutton Creatinine [Mass/Vol] 1.28 mg/dL Critically high 0.55-1.02 [facility] Comment on above: Performed By: #### C LESTER, HSTROPN ####[facility] [address] [place] [address]Dr. Lori Sutton EGFR-AF MOLDOVAN 49 mL/min/1.73m2 Critically low >=60 [facility] Comment on above: Performed By: #### C LESTER, HSTROPN ####[facility] [address] [place] [address]Dr. Lori Sutton EGFR-NON AF MOLDOVAN 40 mL/min/1.73m2 Critically low >=60 [facility] Comment on above: Performed By: #### C MP, HSTROPN ####[facility] [address] [place] [address]Dr. Lori Sutton Globulin (S) [Mass/Vol] 3.2 g/dL Normal [facility] Comment on above: Performed By: #### C MP, HSTROPN ####[facility] [address] [place] [address]Dr. Lori Sutton Glucose [Mass/Vol] 230 mg/dL Critically high 74-106 [facility] Comment on above: Performed By: #### C MP, HSTROPN ####[facility] [address] [place] [address]Dr. Lori Sutton Potassium [Moles/Vol] 4.0 mmol/L Normal 3.5-5.1 [facility] Comment on above: Performed By: #### C MP, HSTROPN ####[facility] [address] [place] [address]Dr. Lori Sutton Protein [Mass/Vol] 7.0 g/dL Normal 6.4-8.2 [facility] Comment on above: Performed By: #### C MP, HSTROPN ####[facility] [address] [place] [address]Dr. Lori Sutton Sodium [Moles/Vol] 141 mmol/L Normal 136-145 [facility] Comment on above: Performed By: #### C MP, HSTROPN ####[facility] [address] [place] [address]Dr. Lori Sutton Urea nitrogen [Mass/Vol] 28.0 mg/dL Critically high 7.0-18.0 [facility] Comment on above: Performed By: #### C MP, HSTROPN ####[facility] [address] [place] [address]Dr. Lori Sutton Urea nitrogen/Creatinine [Mass ratio] 21.9 mg/mg Normal [facility] Comment on above: Performed By: #### C LESTER, HSTROPN ####[facility] [address] [place] [address]Dr. Lori Sutton TROPONIN, HIGH SENSITIVITYon 01-03-2023 HSTROP 74.5 pg/mL Critically high 4.0-51.3 [facility] Comment on above: Result Comment: CUT- OFF POINTS HAVE BEEN ESTABLISHED BASED ON THE FOURTH UNIVERSAL DEFINITIONS OF MYOCARDIAL INFARCTION. THE UPPER REFERENCE LIMIT (URL) OF TROPONIN, DEFINED THE 99TH PERCENTILE OF cTnI DISTRIBUTION IN A REFERENCE POPULATION, HAS BEEN CONFIRMED THE DECISION THRESHOLD FOR [place] DIAGNOSIS. Performed By: #### C LESTER HSTROPN ####[facility] [address] [place], [place] [address]Dr. Lori Sutton Tobacco Screening.on 023 Fall risk assessment a) No falls within the last year [facility] Work Phone: Tobacco use status [facility] b) No [facility] Work Phone: Tobacco Screening. Yes [facility] Work Phone: AMYLASEon 01-02-2023 Amylase [Catalytic activity/Vol] 37 U/L Normal 25-115 [facility] Comment on above: Performed By: #### B MICROSOFT EXCHANGE ARCHITECT, GERRY, CMP #### [facility] [address] [place] [address] Dr. Lori Sutton BNPon 01-02-2023 Natriuretic peptide B (Bld) [Mass/Vol] 690.0 pg/mL Normal <=1,800.0 [facility] Comment on above: Performed By: #### B MICROSOFT EXCHANGE ARCHITECT, GERRY, CMP ####[facility] [address] [place] [address]Dr. Lori Sutton CBC AUTO DIFFon 01-02-2023 BASO # 0.0 103/ul Normal 0.0-0.1 [facility] Comment on above: Performed By: #### C BC #### [facility] [address] [place] [address] Dr. Lori Sutton Basophils/100 WBC (Bld) 0.6 % Normal 0.2-2.0 [facility] Comment on above: Performed By: #### C BC #### [facility] [address] [place] [address] Dr. Lori Sutton EO # 0.2 103/ul Normal 0.0-0.7 [facility] Comment on above: Performed By: #### C BC #### [facility] [address] [place] [address] Dr. Lori Sutton Eosinophils/100 WBC (Bld) 2.8 % Normal 0.9-7.0 [facility] Comment on above: Performed By: #### C BC #### [facility] [address] [place] [address] Dr. Lori Sutton Erythrocyte distribution width (RBC) [Ratio] 13.8 % Normal 11.0-15.0 [facility] Comment on above: Performed By: #### C BC #### [facility] [address] [place] [address] Dr. Lori Sutton Hematocrit (Bld) [Volume fraction] 46.3 % Normal 36.0-48.0 [facility] Comment on above: Performed By: #### C BC #### [facility] [address] [place] [address] Dr. Lori Sutton Hemoglobin (Bld) [Mass/Vol] 15.0 g/dL Normal 12.0-16.0 [facility] Comment on above: Performed By: #### C BC #### [facility] [address] [place] [address] Dr. Lori Sutton IG # 0.01 10e3/ul Normal 0.00-0.03 [facility] Comment on above: Performed By: #### C BC #### [facility] [address] [place] [address] Dr. Lori Sutton IG % 0.2 % Normal 0.0-0.5 [facility] Comment on above: Performed By: #### C BC #### [facility] [address] [place] [address] Dr. Lori Sutton LYMPH # 1.1 103/ul Critically low 1.2-3.8 [facility] Comment on above: Performed By: #### C BC #### [facility] [address] [place] [address] Dr. Lori Sutton Lymphocytes/100 WBC (Bld) 17.6 % Critically low 20.5-60.0 [facility] Comment on above: Performed By: #### C BC #### [facility] [address] [place] [address] Dr. Lori Sutton MANUAL DIFF REQ NO Normal [facility] Comment on above: Performed By: #### C BC #### [facility] [address] [place] [address] Dr. Lori Sutton MCH (RBC) [Entitic mass] 29.7 pg Normal 26.7-34.0 [facility] Comment on above: Performed By: #### C BC #### [facility] [address] [place] [address] Dr. Lori Sutton MCHC (RBC) [Mass/Vol] 32.4 g/dL Normal 29.9-35.2 [facility] Comment on above: Performed By: #### C BC #### [facility] [address] [place] [address] Dr. Lori Sutton MCV (RBC) [Entitic vol] 91.7 fL Normal 81.0-99.0 [facility] Comment on above: Performed By: #### C BC #### [facility] [address] [place] [address] Dr. Lori Sutton MONO # 0.4 103/ul Normal 0.3-0.8 [facility] Comment on above: Performed By: #### C BC #### [facility] [address] [place] [address] Dr. Lori Sutton Monocytes/100 WBC (Bld) 6.2 % Normal 1.7-12.0 [facility] Comment on above: Performed By: #### C BC #### [facility] [address] [place] [address] Dr. Lori Sutton NEUT # 4.6 103/ul Normal 1.4-6.5 [facility] Comment on above: Performed By: #### C BC #### [facility] [address] [address] [address] Lori Sutton Neutrophils/100 WBC (Bld) 72.6 % Normal 43.0-75.0 [facility] Comment on above: Performed By: #### C BC #### [facility] [address] [address] [address] Lori Sutton Platelet mean volume (Bld) [Entitic vol] 10.3 fL Normal 9.5-13.5 [facility] Comment on above: Performed By: #### C BC #### [facility] [address] [place] [address] Dr. Lori Sutton PLT 207 103/ul Normal 150-450 [facility] Comment on above: Performed By: #### C BC #### [facility] [address] [address] [address] Lori Sutton RBC 5.05 106/ul Normal 4.20-5.40 [facility] Comment on above: Performed By: #### C BC #### [facility] [address] [address] [address] Lori Sutton WBC 6.3 103/ul Normal 4.0-11.0 [facility] Comment on above: Performed By: #### C BC #### [facility] [address] [address] [address] Lori Sutton PROF 14(COMP METB)on 023 Albumin [Mass/Vol] 3.9 g/dL Normal 3.4-5.0 [facility] Comment on above: Performed By: #### B MICROSOFT EXCHANGE ARCHITECT, GERRY, CMP ####[facility] [address] [place] [address]Dr. Lori Sutton Albumin/Globulin [Mass ratio] 1.2 {ratio} Normal [facility] Comment on above: Performed By: #### B MICROSOFT EXCHANGE ARCHITECT, GERRY, CMP ####[facility] [address] [place] [id number]. Lori Sutton ALP [Catalytic activity/Vol] 98 U/L Normal 46-116 [facility] Comment on above: Performed By: #### B MICROSOFT EXCHANGE ARCHITECT, GERRY, CMP ####[facility] [address] [place] [address]Dr. Lori Sutton ALT [Catalytic activity/Vol] 24 U/L Normal 14-59 [facility] Comment on above: Performed By: #### B MICROSOFT EXCHANGE ARCHITECT, GERRY, CMP ####[facility] [address] [place] [address]Dr. Lori Sutton Anion gap [Moles/Vol] 12.0 mmol/L Normal [facility] Comment on above: Performed By: #### B MICROSOFT EXCHANGE ARCHITECT, GERRY, CMP ####[facility] [address] [place], [place] [address]Dr. Lori Sutton AST [Catalytic activity/Vol] 25 U/L Normal 15-37 [facility] Comment on above: Performed By: #### B MICROSOFT EXCHANGE ARCHITECT, GERRY, CMP ####[facility] [address] [place], [place] [address]Dr. Lori Sutton Bilirubin [Mass/Vol] 0.8 mg/dL Normal 0.2-1.0 [facility] Comment on above: Performed By: #### B MICROSOFT EXCHANGE ARCHITECT, GERRY, CMP ####[facility] [address] [place], [place] [address]Dr. Lori Sutton Calcium [Mass/Vol] 9.2 mg/dL Normal 8.5-10.1 [facility] Comment on above: Performed By: #### B MICROSOFT EXCHANGE ARCHITECT, GERRY, CMP ####[facility] [address] [place], [place] [address]Dr. Lori Sutton Chloride [Moles/Vol] 107 mmol/L Normal 98-107 [facility] Comment on above: Performed By: #### B MICROSOFT EXCHANGE ARCHITECT, GERRY, CMP ####[facility] [address] [place], [place] [address]Dr. Lori Sutton CO2 [Moles/Vol] 28.6 mmol/L Normal 21.0-32.0 [facility] Comment on above: Performed By: #### B MICROSOFT EXCHANGE ARCHITECT, GERRY, CMP ####[facility] [address] [place] [address]Dr. Lori Sutton Creatinine [Mass/Vol] 1.08 mg/dL Critically high 0.55-1.02 [facility] Comment on above: Performed By: #### B MICROSOFT EXCHANGE ARCHITECT, GERRY, CMP ####[facility] [address] [place], [place] [address]Dr. Lori Sutton EGFR-AF MOLDOVAN 59 mL/min/1.73m2 Critically low >=60 [facility] Comment on above: Performed By: #### B MICROSOFT EXCHANGE ARCHITECT, GERRY, CMP ####[facility] [address] [place], [place] [address]Dr. Lori Sutton EGFR-NON AF MOLDOVAN 49 mL/min/1.73m2 Critically low >=60 [facility] Comment on above: Performed By: #### B MICROSOFT EXCHANGE ARCHITECT, GERRY, CMP ####[facility] [address] [place], [place] [address]Dr. Lori Sutton Globulin (S) [Mass/Vol] 3.2 g/dL Normal [facility] Comment on above: Performed By: #### B MICROSOFT EXCHANGE ARCHITECT, GERRY, CMP ####[facility] [address] [place], [place] [address]Dr. Lori Sutton Glucose [Mass/Vol] 103 mg/dL Normal 74-106 [facility] Comment on above: Performed By: #### B MICROSOFT EXCHANGE ARCHITECT, GERRY, CMP ####[facility] [address] [place], [place] [address]Dr. Lori Sutton Potassium [Moles/Vol] 4.6 mmol/L Normal 3.5-5.1 [facility] Comment on above: Performed By: #### B MICROSOFT EXCHANGE ARCHITECT, GERRY, CMP ####[facility] [address] [place], [place] [address]Dr. Lori Sutton Protein [Mass/Vol] 7.1 g/dL Normal 6.4-8.2 [facility] Comment on above: Performed By: #### B MICROSOFT EXCHANGE ARCHITECT, GERRY, CMP ####[facility] [address] [place], [place] [address]Dr. Lori Sutton Sodium [Moles/Vol] 143 mmol/L Normal 136-145 [facility] Comment on above: Performed By: #### B MICROSOFT EXCHANGE ARCHITECT, GERRY, CMP ####[facility] [address] [place], [place] [address]Tg. Lori Sutton Urea nitrogen [Mass/Vol] 29.0 mg/dL Critically high 7.0-18.0 [facility] Comment on above: Performed By: #### B MICROSOFT EXCHANGE ARCHITECT, GERRY, CMP ####[facility] [address] [place], [place] [address]Qp. Lori Sutton Urea nitrogen/Creatinine [Mass ratio] 26.9 mg/mg Normal [facility] Comment on above: Performed By: #### B MICROSOFT EXCHANGE ARCHITECT, GERRY, CMP ####[facility] [address] [place], [place] [address]Cl. Lori Sutton XR CHEST 2 Von 01-02-2023 [...] ARI LEVY Date: 2023-01-02 12:33 Normal [facility] Office Visit (Cardiology)on 12-25-2022 Follow-up visit Diagnoses/Problems [...] AF includes Amiodarone (d/c?d for concerns of penitentiary side effects), tikosyn (prolonged OTc), sotalol and DCCV (09/2022). Symptoms of her AF include fatigue and BRAY. Pt follows with Dr Stover for management of her AF. Pt has previously been on Amio but was concerned about penitentiary side effects. She was then put on [...] AV CONDUCTION @ 109 bpm Echo 08/2022 ([facility] ? [facility]): LVEF 40%, moderate anteroseptal hypokinesis [...] PM S (more content not included)... Normal [facility] Alkaline phosphatase [Enzyma tic activity/volume] in Serum [...] on 11-27-2022 Bilirubin [Mass/Vol] 0.8 mg/dL 0.3-1.0 [facility] Lipase [Enzymatic activity/v olume] in Serum [...] on 11-20-2022 CO2 [Moles/Vol] 25.5 mmol/L 21.0-31.0 [facility] Chloride [Moles/volume] in S vaughn or PlasmaOrdered By: Wilbur Watson on 11-20-2022 Chloride [Moles/Vol] 107 mmol/L 98-107 [facility] Creatinine [Mass/volume] in Serum or PlasmaOrdered By: Wilbur Watson on 11-20-2022 Creatinine [Mass/Vol] 1.08 mg/dL 0.60-1.20 [facility] Eosinophils Auto (Bld) [#/Vo l]Ordered By: Wilbur [...] 11-20-2022 MCHC (RBC) [Mass/Vol] 33.0 g/dL 32.0-35.0 [facility] MCV Auto (RBC) [Entitic vol] Ordered [...] on 11-20-2022 Potassium [Moles/Vol] 4.5 mmol/L 3.5-5.1 [facility] RBC Auto (Bld) [#/Vol]Ordere d By: Wilbur Watson on 11-20-2022 RBC (Bld) [#/Vol] 5.18 10*6/uL 3.60-5.00 [facility] [place] [facility] Serum or plasma anion gap de terminationOrdered By: Wilbur Watson on 11-20-2022 Anion gap [Moles/Vol] 12.0 mmol/L 6.0-15.0 [facility] Sodium [Moles/volume] in Ser um or PlasmaOrdered By: Wilbur Watson on 11-20-2022 Sodium [Moles/Vol] 140 mmol/L 136-145 [facility] [...] : DR JAZMIN العلي D.O. Admission #: [id number] Family : Order #: [id number] CLICK HERE TO VIEW EXAM RADIOLOGY REPORT [...] sarcoma cancer at age 45. LOCATION: [facility] BREAST COMPOSITION: Extremely dense, which lowers the [...] MD on 10/16/2022 at 14:09 Normal [facility] Office Visit (Cardiology)on 10-13-2022 Follow-up visit Diagnoses/Problems [...] Weight Tips; Status:Complete - Retrospective Authorization; Done: [id number] Some eating tips that can help you lose weight.; Status:Complete - Retrospective Authorization; Done: [id number] Gallstones General Surgery Referral Evaluation and Treatment Evaluate AND Treat Status: Hold For - Scheduling,Retrospective Authorization Requested for: [id number] Persistent atrial fibrillation Renew: Sotalol HCl - 80 MG Oral Tablet (Betapace); TAKE 1 TABLET BY MOUTH TWICE DAILY IO EKG Electrocardiogram- 12 Lead; Status:Complete; Done: [id number] SocHx: Never a smoker Tobacco Use Screening; Status:Complete; Done: [id number] Patient Instructions Please bring all medicines, vitamins, [...] Complaint AUSTIN GOLDEN is being seen for [facility] d/c 09/2022. History of Present Illness Patient [...] Medication fentany (more content not included)... Normal [employer] Tobacco Screening.on 023 Fall risk assessment a) No falls within the last year -[facility] [address] DO Work Phone: Tobacco use status [facility] b) No [facility] [address] DO Work Phone: [phone] Tobacco Screening. Yes [facility] [address] DO Work Phone: [phone] Tobacco Screening.on 023 Fall risk assessment a) No falls within the last year -[facility] [address] DO Work Phone: [phone] Tobacco use status [facility] b) No -[facility] [address] DO Work Phone: [phone] Basophils Auto (Bld) [#/Vol] Ordered By: Katie [...] on 09-21-2022 Creatinine [Mass/Vol] 1.08 mg/dL 0.44-1.03 [facility] Eosinophils Auto (Bld) [#/Vo l]Ordered By: Katie [...] on 09-21-2022 Magnesium [Mass/Vol] 1.8 mg/dL 1.6-2.6 [facility] Leukocytes [#/volume] correc anne marie for [...] 09-21-2022 MCHC (RBC) [Mass/Vol] 32.9 g/dL 32.0-35.0 [facility] MCV Auto (RBC) [Entitic vol] Ordered [...] 09-21-2022 RBC (Bld) [#/Vol] 4.41 10*6/uL 3.60-5.00 [facility] [place] [facility] Serum or plasma anion gap de terminationOrdered By: Katie Dukes on 09-21-2022 Anion gap [Moles/Vol] 11.0 mmol/L 6.0-15.0 [facility] Serum or plasma calcium mitch urement (mass/volume)Ordered By: Katie Dukes on 09-21-2022 Calcium [Mass/Vol] 8.6 mg/dL 8.2-10.2 [facility] Serum or plasma chloride carlitos surement (moles/volume)Ordered By: Katie Dukes on 09-21-2022 Chloride [Moles/Vol] 107 mmol/L 95-114 [facility] Serum or plasma creatine kin ase MB (CKMB)/total creatine kinase (CK) ratio by calculaOrdered By: Debbie Mac on 09-21-2022 CK.MB Calc [Catalytic fraction] 2.5 % 0.00-2.50 [facility] Serum or plasma creatine kin ase MB measurement (mass/volume)Ordered By: Debbie Mac on 09-21-2022 CK.MB [Mass/Vol] 1.9 ng/mL 0.6-6.3 [facility] Serum or plasma glucose mitch urement (mass/volume)Ordered By: Katie Dukes on 09-21-2022 Glucose [Mass/Vol] 94 mg/dL 70-100 [facility] Comment on above: ADA recommended refe rence rangeRandom Glucose Reference Range is dependent on time and content of last meal. Glucose of more than 200 mg/dL in a nonstressed, ambulatory subject supports the diagnosis of Diabetes Mellitus. Serum or plasma potassium me asurement (moles/volume)Ordered By: Katie Dukes on 09-21-2022 Potassium [Moles/Vol] 3.9 mmol/L 3.5-5.1 [facility] Serum or plasma sodium measu rement (moles/volume)Ordered By: Katie Dukes on 09-21-2022 Sodium [Moles/Vol] 137 mmol/L 136-146 [facility] Serum or plasma total carbon dioxide measurement (moles/volume)Ordered By: Katie Dukes on 09-21-2022 CO2 [Moles/Vol] 22.9 mmol/L 22.0-30.0 [facility] Serum or plasma urea nitroge n measurement (mass/volume)Ordered By: Katie Dueks on 09-21-2022 Urea nitrogen [Mass/Vol] 18 mg/dL [...] Health Glucose Glucometer (BldC) [M ass/Vol]Ordered By: Katie [...] aPTT Coag (PPP) [Time] 40.4 s 25.1-36.5 [facility] Automated erythrocytes count in urine sediment [...] on 09-17-2022 Bilirubin Ql (U) Negative Negative [facility] Body fluid albumin measureme nt (mass/volume)Ordered [...] on 09-17-2022 Creatinine [Mass/Vol] 1.23 mg/dL 0.44-1.03 [facility] Eosinophils Auto (Bld) [#/Vo l]Ordered By: Indy [...] 09-17-2022 Ketones (U) [Mass/Vol] Trace Negative Fi [facility] Laboratory - Chemistry and C hemistry - challengeOrdered By: Indy Rolon on 09-17-2022 Magnesium [Mass/Vol] 2.1 mg/dL 1.6-2.6 [facility] Natriuretic peptide B (Bld) [Mass/Vol] 292.0 pg/mL 5-100 [facility] Laboratory - CoagulationOrde red By: Indy Rolon on 09-17-2022 PT Coag (PPP) [Time] 23.4 s 9.0-12.9 [facility] Leukocytes [#/volume] correc anne marie for [...] 09-17-2022 MCHC (RBC) [Mass/Vol] 33.2 g/dL 32.0-35.0 [facility] MCV Auto (RBC) [Entitic vol] Ordered [...] Monocytes/100 WBC Auto (Bld) Ordered By: Indy Rolno on 09-17-2022 Monocytes/100 WBC (Bld) 7.1 % [...] Protein (U) [Mass/Vol] Trace mg/dL Negative F [facility] Protein [Mass/volume] in Ser um or PlasmaOrdered By: Indy Rolon on 09-17-2022 Protein [Mass/Vol] 6.3 g/dL 6.1-7.9 [facility] RBC Auto (Bld) [#/Vol]Ordere d By: Indy Rolon on 09-17-2022 RBC (Bld) [#/Vol] 4.80 10*6/uL 3.60-5.00 [facility] [place] [facility] Serum or plasma alanine mahmood otransferase [...] 09-17-2022 Anion gap [Moles/Vol] 14.2 mmol/L 6.0-15.0 [facility] Serum or plasma aspartate am inotransferase measurement (enzymatic activity/volume)Ordered By: Indy Rolon on 09-17-2022 AST [Catalytic activity/Vol] 28 U/L 10-42 [facility] Serum or plasma calcium mitch urement (mass/volume)Ordered By: Indy Rolon on 09-17-2022 Calcium [Mass/Vol] 9.4 mg/dL 8.2-10.2 [facility] Serum or plasma chloride carlitos surement (moles/volume)Ordered By: Indy Rolon on 09-17-2022 Chloride [Moles/Vol] 103 mmol/L 95-114 [facility] Serum or plasma glucose mitch urement [...] on 09-17-2022 Potassium [Moles/Vol] 4.7 mmol/L 3.5-5.1 [facility] Serum or plasma sodium measu rement (moles/volume)Ordered By: Indy Rolon on 09-17-2022 Sodium [Moles/Vol] 138 mmol/L 136-146 [facility] Serum or plasma total biliru bin measurement (mass/volume)Ordered By: Indy Rolon on 09-17-2022 Bilirubin [Mass/Vol] 1.1 mg/dL 0.3-1.2 [facility] Serum or plasma total carbon dioxide measurement (moles/volume)Ordered By: Indy Rolon on 09-17-2022 CO2 [Moles/Vol] 25.5 mmol/L 22.0-30.0 [facility] Serum or plasma urea nitroge n [...] Bacteria Auto Ql (U) 3+ None Seen [facility] Urine clarity by refractomet ry automatedOrdered [...] Auto test strip (U) [Mass/Vol]Ordered By: Indy Rooln on 09-17-2022 Urobilinogen (U) [Mass/Vol] Normal mg/dL [...] on 09-05-2022 Creatinine [Mass/Vol] 1.57 mg/dL 0.44-1.03 [facility] Eosinophils Auto (Bld) [#/Vo l]Ordered By: Jay [...] 09-05-2022 MCHC (RBC) [Mass/Vol] 32.9 g/dL 32.0-35.0 [facility] MCV Auto (RBC) [Entitic vol] Ordered [...] 09-05-2022 RBC (Bld) [#/Vol] 4.70 10*6/uL 3.60-5.00 [facility] [place] [facility] Serum or plasma anion gap de terminationOrdered By: Jay Ceja on 09-05-2022 Anion gap [Moles/Vol] 11.5 mmol/L 6.0-15.0 [facility] Serum or plasma calcium mitch urement (mass/volume)Ordered By: Jay Ceja on 09-05-2022 Calcium [Mass/Vol] 8.9 mg/dL 8.2-10.2 [facility] Serum or plasma chloride carlitos surement (moles/volume)Ordered By: Jay Ceja on 09-05-2022 Chloride [Moles/Vol] 105 mmol/L 95-114 [facility] Serum or plasma glucose mitch urement (mass/volume)Ordered By: Jay Ceja on 09-05-2022 Glucose [Mass/Vol] 103 mg/dL 70-100 [facility] Comment on above: ADA recommended refe rence rangeRandom Glucose Reference Range is dependent on time and content of last meal. Glucose of more than 200 mg/dL in a nonstressed, ambulatory subject supports the diagnosis of Diabetes Mellitus. Serum or plasma potassium me asurement (moles/volume)Ordered By: Jay Ceja on 09-05-2022 Potassium [Moles/Vol] 4.0 mmol/L 3.5-5.1 [facility] Serum or plasma sodium measu rement (moles/volume)Ordered By: Jay Ceja on 09-05-2022 Sodium [Moles/Vol] 140 mmol/L 136-146 [facility] Serum or plasma total carbon dioxide measurement (moles/volume)Ordered By: Jay Ceja on 09-05-2022 CO2 [Moles/Vol] 27.5 mmol/L 22.0-30.0 [facility] Serum or plasma urea nitroge n [...] on 09-02-2022 Magnesium [Mass/Vol] 1.8 mg/dL 1.6-2.6 [facility] Natriuretic peptide B (Bld) [Mass/Vol] 307.0 [...] on 09-01-2022 Bilirubin Ql (U) Negative Negative [facility] Color Auto (U)Ordered By: Robert Lennon on 09-01-2022 Color (U) Dark yellow Yellow [facility] Creatinine and Glomerular fi ltration rate.predicted panel (S/P/Bld)Ordered By: Luis Lennon on 09-01-2022 Creatinine [Mass/Vol] 1.14 mg/dL 0.44-1.03 [facility] Eosinophils Auto (Bld) [#/Vo l]Ordered By: Luis [...] on 09-01-2022 Ketones (U) [Mass/Vol] Trace Negative [facility] - Chemistry and C hemistry [...] 09-01-2022 MCHC (RBC) [Mass/Vol] 32.0 g/dL 32.0-35.0 [facility] MCV Auto (RBC) [Entitic vol] Ordered [...] Protein (U) [Mass/Vol] 30 mg/dL Negative Fi [facility] Protein [Mass/volume] in Ser um or PlasmaOrdered By: Luis Lennon on 09-01-2022 Protein [Mass/Vol] 5.9 g/dL 6.1-7.9 [facility] RBC Auto (Bld) [#/Vol]Ordere d By: Luis Lennon on 09-01-2022 RBC (Bld) [#/Vol] 4.74 10*6/uL 3.60-5.00 [facility] [place] [facility] Serum or plasma alanine mahmood otransferase [...] 09-01-2022 Anion gap [Moles/Vol] 9.3 mmol/L 6.0-15.0 [facility] Serum or plasma aspartate am inotransferase measurement (enzymatic activity/volume)Ordered By: Luis Lennon on 09-01-2022 AST [Catalytic activity/Vol] 33 U/L 10-42 [facility] Serum or plasma calcium mitch urement (mass/volume)Ordered By: Luis Lennon on 09-01-2022 Calcium [Mass/Vol] 9.0 mg/dL 8.2-10.2 [facility] Serum or plasma chloride carlitos surement (moles/volume)Ordered By: Luis Lennon on 09-01-2022 Chloride [Moles/Vol] 109 mmol/L 95-114 [facility] Serum or plasma glucose mitch urement [...] on 09-01-2022 Potassium [Moles/Vol] 4.2 mmol/L 3.5-5.1 [facility] Serum or plasma sodium measu rement (moles/volume)Ordered By: Luis Lennon on 09-01-2022 Sodium [Moles/Vol] 138 mmol/L 136-146 [facility] Serum or plasma total biliru bin measurement (mass/volume)Ordered By: Luis Lennon on 09-01-2022 Bilirubin [Mass/Vol] 1.3 mg/dL 0.3-1.2 [facility] Comment on above: Samples from patient s who have taken Naproxen have shown spurious elevation in Total Bilirubin levels. A metabolite of Naproxen, O-desmethylnaproxen, has been shown to interfere with the Dc-Day method for measuring Total Bilirubin. Serum or plasma total carbon dioxide measurement (moles/volume)Ordered By: Luis Lennon on 09-01-2022 CO2 [Moles/Vol] 23.9 mmol/L 22.0-30.0 [facility] Serum or plasma urea nitroge n measurement (mass/volume)Ordered By: Luis Lennon on 09-01-2022 Urea nitrogen [Mass/Vol] 23 mg/dL 9-23 [facility] [...] Auto Ql (U) None seen None Seen [facility] Urine clarity by refractomet ry automatedOrdered [...] Signs Recorded: 26Jun2022 02:26PM Heart Rate71, Apical Mjtshkwx863, LUE, Sitting Ywimileet19, LUE, Sitting Height4 ft 11 in Sxgxxc381 lb BMI Aliwpjakly81.92 kg/m2 BSA Calculated1.69 Tobacco Useb) No Falls Screening (Age 18+)a) No falls within the last year EKG COMPLETED IN OFFICE Physical Exam Constitutional: alert and in no acute distress. Neck: neck is supple, symmetric, trachea midline, no masses and no thyromegaly . Pulmonary: no increased work of breathing or signs of respiratory distress (more content not included)... Normal [employer] Tobacco Screening.on 022 Fall risk assessment a) No falls within the last year [facility] [place] [address] DO Work Phone: Tobacco use status [facility] b) No [facility] [address] DO Work Phone: NM [...] FARRAH LOGAN Date: 2022-05-12 12:48 Normal [facility] Covid-19 PCR (CVDTB)on SARS-CoV-2 (COVID-19) RNA GUILLERMO+probe Ql (Unsp spec) Not detected Normal NOT DETECTED [facility] Comment on above: Result Comment: This test is not yet approved or cleared by the [place] FDA. When there are no FDA-approved or cleared tests available, and other criteria are met, FDA can make tests available under an emergency access mechanism called an Emergency Use Authorization (EUA). The EUA for this test is supported by the [place] of Health and Human Service's (HHS's) declaration [...] SARS-CoV-2. Performed By: #### C VDTB #### [facility] [address] [address] [address] Lori Sutton Office Visit (Cardiology)on 03-10-2022 [...] Weight Tips; Status:Complete - Retrospective Authorization; Done: [id number] Some eating tips that can help you lose weight.; Status:Complete - Retrospective Authorization; Done: [id number] Persistent atrial fibrillation IO EKG Electrocardiogram- 12 Lead; Status:Complete; Done: [id number] SocHx: Never a smoker Tobacco Use Screening; Status:Complete; Done: [id number] Patient Instructions Please bring all medicines, vitamins, [...] the above has been addressed by her carpentry specialist Dr. Mota. She reports she underwent esophageal [...] tired. Cardiovascular: (more content not included)... Normal [employer] Tobacco Screening.on 022 Fall risk assessment a) No falls within the last year [facility] [place] [address] [place] Work Phone: Tobacco use status [facility] b) No [facility] [address] [place] Work Phone: Albumin [Mass/volume] [...] on 03-09-2022 Creatinine [Mass/Vol] 1.10 mg/dL 0.44-1.03 [facility] Eosinophils Auto (Bld) [#/Vo l]Ordered By: John Mims on 03-09-2022 Eosinophils (Bld) [#/Vol] 0.3 10*3/uL 0.0-0.45 [facility] Eosinophils/100 WBC Auto (Bl d)Ordered By: John [...] North Globulin Calc (S) [Mass/Vol] Ordered By: Jhon Mims on 03-09-2022 Globulin (S) [Mass/Vol] 2.6 g/dL [facility] Hematocrit Auto (Bld) [Volum e fraction]Ordered By: John Mims on 03-09-2022 Hematocrit (Bld) [Volume fraction] 40.9 % 34.0-46.4 [facility] Laboratory - CoagulationOrde red By: John Mims on 03-09-2022 PT Coag (PPP) [Time] 17.6 s 9.0-12.9 [facility] - Hematology and Cell countsOrdered [...] 03-09-2022 MCHC (RBC) [Mass/Vol] 33.4 g/dL 32.0-35.0 [facility] MCV Auto (RBC) [Entitic vol] Ordered [...] 03-09-2022 RBC (Bld) [#/Vol] 4.44 10*6/uL 3.60-5.00 [facility] [place] [facility] Serum or plasma alanine mahmood otransferase [...] on 03-09-2022 Chloride [Moles/Vol] 106 mmol/L 95-114 [facility] Serum or plasma glucose mitch urement [...] on 03-09-2022 Potassium [Moles/Vol] 4.6 mmol/L 3.5-5.1 [facility] Serum or plasma sodium measu rement (moles/volume)Ordered By: John Mims on 03-09-2022 Sodium [Moles/Vol] 139 mmol/L 136-146 [facility] Serum or plasma total biliru bin measurement (mass/volume)Ordered By: John Mims on 03-09-2022 Bilirubin [Mass/Vol] 0.9 mg/dL 0.3-1.2 [facility] Serum or plasma total carbon dioxide measurement (moles/volume)Ordered By: John Mims on 03-09-2022 CO2 [Moles/Vol] 23.9 mmol/L 22.0-30.0 [facility] Serum or plasma urea nitroge n measurement (mass/volume)Ordered By: John Mims on 03-09-2022 Urea nitrogen [Mass/Vol] 30 mg/dL 9-23 [facility] TSH DL <= 0.005 mIU/L QnOrde red By: John Serranoack on 03-09-2022 TSH Qn 1.70 m[IU]/L 0.45-5.33 [facility] Thyroxine (T4) free [Mass/vo lume] in Serum or PlasmaOrdered By: John Serranoack on 03-09-2022 Free T4 [Mass/Vol] 1.37 ng/dL [...] HARDY LIRA Date: 2022-01-25 16:24 Normal [facility] BNPon 01-11-2022 Natriuretic peptide B (Bld) [Mass/Vol] 520.0 pg/mL Normal <=1,800.0 [facility] Comment on above: Performed By: #### B MP, TSH, BNP #### [facility] [address] [place], [place] [address] Dr. Lori Sutton CBC AUTO DIFFon 01-11-2022 BASO # 0.0 103/ul Normal 0.0-0.1 [facility] Comment on above: Performed By: #### C BC ####[facility] [address] [place], [place] [address]XiDr. Lori Sutton Basophils/100 WBC (Bld) 0.5 % Normal 0.2-2.0 [facility] Comment on above: Performed By: #### C BC ####[facility] [address] [address]Dr. Lori Sutton EO # 0.3 103/ul Normal 0.0-0.7 [facility] Comment on above: Performed By: #### C BC ####[facility] [address] [place], [place] [address]Dr. Lori Sutton Eosinophils/100 WBC (Bld) 3.9 % Normal 0.9-7.0 [facility] Comment on above: Performed By: #### C BC ####[facility] [address] [place], [place] [address]Dr. Lori Sutton Erythrocyte distribution width (RBC) [Ratio] 14.4 % Normal 11.0-15.0 [facility] Comment on above: Performed By: #### C BC ####[facility] [address] [place], [place] [address]Dr. Lori Sutton Hematocrit (Bld) [Volume fraction] 42.0 % Normal 36.0-48.0 [facility] Comment on above: Performed By: #### C BC ####[facility] [address] [place], [place] [address]Dr. Lori Sutton Hemoglobin (Bld) [Mass/Vol] 13.4 g/dL Normal 12.0-16.0 [facility] Comment on above: Performed By: #### C BC ####[facility] [address] [place], [place] [address]Dr. Lori Sutton IG # 0.04 10e3/ul Critically high 0.00-0.03 [facility] Comment on above: Performed By: #### C BC ####[facility] [address] [place], [place] [address]Dr. Lori Sutton IG % 0.5 % Normal 0.0-0.5 [facility] Comment on above: Performed By: #### C BC ####[facility] [address] [place], [place] [address]Dr. Lori Sutton LYMPH # 1.7 103/ul Normal 1.2-3.8 [facility] Comment on above: Performed By: #### C BC ####[facility] [address] [address]Dr. Estephaniaurbano Sutton Lymphocytes/100 WBC (Bld) 21.3 % Normal 20.5-60.0 [facility] Comment on above: Performed By: #### C BC ####[facility] [address] [address]Dr. Lori Sutton MANUAL DIFF REQ NO Normal [facility] Comment on above: Performed By: #### C BC ####[facility] [address] [address]Dr. Estephaniaurbano Sutton MCH (RBC) [Entitic mass] 30.6 pg Normal 26.7-34.0 [facility] Comment on above: Performed By: #### C BC ####[facility] [address] [address]Dr. Lori Herman MCHC (RBC) [Mass/Vol] 31.9 g/dL Normal 29.9-35.2 [facility] Comment on above: Performed By: #### C BC ####[facility] [address] [place], [place] [address]Dr. Lori Sutton MCV (RBC) [Entitic vol] 95.9 fL Normal 81.0-99.0 [facility] Comment on above: Performed By: #### C BC ####[facility] [address] [address]Dr. Lori Sutton MONO # 0.7 103/ul Normal 0.3-0.8 [facility] Comment on above: Performed By: #### C BC ####[facility] [address] [place], [place] [address]Dr. Lori Sutton Monocytes/100 WBC (Bld) 8.5 % Normal 1.7-12.0 [facility] Comment on above: Performed By: #### C BC ####[facility] [address] [place], [place] [address]Dr. Lori Sutton NEUT # 5.2 103/ul Normal 1.4-6.5 [facility] Comment on above: Performed By: #### C BC ####[facility] [address] [address]DrMelita Sutton Neutrophils/100 WBC (Bld) 65.3 % Normal 43.0-75.0 [facility] Comment on above: Performed By: #### C BC ####[facility] [address] [address]Dr. Lori Sutton Platelet mean volume (Bld) [Entitic vol] 10.3 fL Normal 9.5-13.5 [facility] Comment on above: Performed By: #### C BC ####[facility] [address] [address]DrMelita Sutton PLT 230 103/ul Normal 150-450 [facility] Comment on above: Performed By: #### C BC ####[facility] [address] [address]Dr. Lori Sutton RBC 4.38 106/ul Normal 4.20-5.40 [facility] Comment on above: Performed By: #### C BC ####[facility] [address] [address]DrMelita Sutton WBC 8.0 103/ul Normal 4.0-11.0 [facility] Comment on above: Performed By: #### C BC ####[facility] [address] [address]Dr. Lori Sutton PROF CHEM 8 (BAS METB)on Anion gap [Moles/Vol] 14.3 mmol/L Normal [facility] Comment on above: Performed By: #### B MP, TSH, BNP #### [facility] [address] [address] [address] Lori Sutton Calcium [Mass/Vol] 8.8 mg/dL Normal 8.5-10.1 [facility] Comment on above: Performed By: #### B MP, TSH, BNP #### [facility] [address] [address] [address] Lori Sutton Chloride [Moles/Vol] 103 mmol/L Normal 98-107 [facility] Comment on above: Performed By: #### B MP, TSH, BNP #### [facility] [address] [place] [address] Dr. Lori Sutton CO2 [Moles/Vol] 27.5 mmol/L Normal 21.0-32.0 [facility] Comment on above: Performed By: #### B MP, TSH, BNP #### [facility] [address] [place] [address] Dr. Lori Sutton Creatinine [Mass/Vol] 1.65 mg/dL Critically high 0.55-1.02 [facility] Comment on above: Performed By: #### B MP, TSH, BNP #### [facility] [address] [place] [address] Dr. Lori Sutton EGFR-AF MOLDOVAN 36 mL/min/1.73m2 Critically low >=60 [facility] Comment on above: Performed By: #### B MP, TSH, BNP #### [facility] [address] [place] [address] Dr. Lori Sutton EGFR-NON AF MOLDOVAN 30 mL/min/1.73m2 Critically low >=60 [facility] Comment on above: Performed By: #### B MP, TSH, BNP #### [facility] [address] [place] [address] Dr. Lori Sutton Glucose [Mass/Vol] 88 mg/dL Normal 74-106 [facility] Comment on above: Performed By: #### B MP, TSH, BNP #### [facility] [address] [place] [address] Dr. oLri Sutton Potassium [Moles/Vol] 4.8 mmol/L Normal 3.5-5.1 [facility] Comment on above: Performed By: #### B MP, TSH, BNP #### [facility] [address] [place] [address] Dr. Lori Sutton Sodium [Moles/Vol] 140 mmol/L Normal 136-145 [facility] Comment on above: Performed By: #### B MP, TSH, BNP #### [facility] [address] [address] [address] Lori Sutton Urea nitrogen [Mass/Vol] 46.0 mg/dL Critically high 7.0-18.0 [facility] Comment on above: Performed By: #### B MP, TSH, BNP #### [facility] [address] [address] [address] Lori Sutton Urea nitrogen/Creatinine [Mass ratio] 27.9 mg/mg Normal [facility] Comment on above: Performed By: #### B MP, TSH, BNP #### [facility] [address] [address] [address] Lori Sutton TSHon 01-11-2022 TSH 2.012 uIU/mL Normal 0.358-3.[address] [facility] Comment on above: Performed By: #### B MP, TSH, BNP #### [facility] [address] [address] [address] Lori Sutton TSH RANGE SEE BELOW Normal [facility] Comment on above: Result Comment: <0.3 4 UIU/ml HYPERTHYROID 0.34-5.60 UIU/ml EUTHYROID >5.60 UIU/ml HYPOTHYROID Performed By: #### B MP, TSH, BNP #### [facility] [address] [address] [address] Lori Sutton XR CHEST 2 Von [...] MACARENA MEHTA Date: 2022-01-11 15:14 Normal [facility] COVID-19 Positive/NegativeOr dered By: John Mims on 12-30-2021 SARS-CoV-2 (COVID-19) N gene GUILLERMO+probe Ql (Resp) Negative Negative [facility] Comment on above: Testing for SARS-CoV -2 by RT-PCR This test was developed and its performance characteristics determined by [employer] ([place]) and validated at the [facility] [...] a) No falls within the last year [facility] [employer] DO Work Phone: [phone] Tobacco use status [facility] b) No [facility] DO Work Phone: Tobacco Screening. Yes [facility] [employer] DO Work Phone: [phone] RAD - CT Reporton 10-10-2021 RAD - CT Report [id number]#1.00CD:127 Normal [facility] Tobacco Screening.on 021 Fall risk assessment b) One or more fall s in the last year [facility] [employer] DO Work Phone: Tobacco use status [facility] b) [facility] RAD - CT Reporton 07-24-2021 RAD - CT Report [id number]#1.00CD:127 [facility] Consent for Procedure/Surger yon 07-22-2021 Consent for Procedure/Surgery [id number]#1.00CD:127 Normal [facility] Ambulatory Clinical Summaryo n 07-21-2021 Ambulatory Clinical Summary {[id number]}CD: [id number] Normal [facility] Patient Educationon 07-21-20 21 Patient Education [...] these instructions at home: Medicines ? Take iqrv-aef-gtkizph and prescription medicines only as told by [...] 01/22/2009 Document Revised: 12/23/2019 Document Reviewed: 12/23/2019 [employer] Patient Education ? 2019 [employer] Normal [facility] Urology Office/Clinic Noteon 07-21-2021 Urology Office/Clinic [...] 07/01/2021. Pt. was seen in consult at [facility]. CT done 06/27/2021 shows left hydronephrosis. [...] With When Contact Information Byron ALFONSO MD, URWolf In 6 months 01/19/[address] [place] [id number]- Additional Instructions: KUB Patient Education Kidney Stones, Sjtb-bx-Wndn I, Leonor Rucker, personally scribed for Dr. [...] Tobacco Use:. Never Smokeless Tobacco Use:., 07/21/2021 [facility] Comment on above: Result Comment: Elec tronically Signed By: Byron ALFONSO MD\.br\Date and Time Signed: 07/21/21 15:17 EST\.br\Electronically Co-Signed By: Leonor Rucker\.br\Date and Time Co-Signed: 07/21/21 15:12 EST Falls Risk Screeningon 07-06 Fall risk assessment a) No falls within the last year [facility] [place] [address] DO Work Phone: Pathology Noteon 07-06-2021 Pathology Note [id number]#1.00CD:127 Normal [facility] Operative Reporton Operative Report [id number]#1.00CD:127 [facility] RAD - MISCon 07-04-2021 RAD - MISC [id number]#1.00CD:127 [facility] Insurance Correspondence Off iceon 07-01-2021 Insurance Correspondence Office [id number]#1.00CD:127 [facility] Consultation Noteon 06-29-20 21 Consultation Note [id number]#1.00CD:127 [facility] No Panel Informationon 06-24 [facility] [place] [address] [place] Work Phone: 20.44\S\20.44 Normal [facility] [place] [address] [place] Work Phone: Comment on above: PERFORMED BY:[facility] [place] [id number] MEDICAL DIRECTORVITOR ZARATE M.D. 9.0\S\9.0 Normal 8.2-10.2 [facility] [place] [address] [place] Work Phone: 24.1\S\24.1 Normal 22.0-30.0 [facility] [place] [address] [place] Work Phone: 103\S\103 Normal 95-114 [facility] [address] [place] Work Phone: [phone] 4.4\S\4.4 Normal 3.5-5.1 [facility] [address] [place] Work Phone: [phone] 138\S\138 Normal 136-146 [facility] [address] [place] Work Phone: [phone] 31\S\31 Normal [facility] [address] [place] Work Phone: [phone] Comment on above: GFR estimated refere nce range: According to KDOQI guidelines, <60 ml/min/1.73m2 is sufficient to diagnose a patient with chronic kidney disease. 26\S\26 Normal [facility] [address] [place] Work Phone: [phone] 1.88\S\1.88 above high threshold 0.44-1.03 [facility] [address] [place] Work Phone: \S\34 above high threshold 9-23 [facility] [address] [place] Work Phone: [phone] 130\S\130 above high threshold 70-100 [facility] [address] [place] Work Phone: [phone] Comment on above: Random Glucose Refer ence Range is dependent on time and content of last meal. Glucose of more than 200 mg/dL in a nonstressed, ambulatory subject supports the diagnosis of Diabetes Mellitus. ADA recommended reference range No Panel Informationon 06-23 3+ above high threshold Negative [facility] [address] [place] Work Phone: [phone] Negative Normal Negative [facility] [address] [place] Work Phone: [phone] Normal Normal Normal [facility] [address] [place] Work Phone: \S\30 above high threshold Negative [facility] [address] [place] Work Phone: [phone] None Seen Normal 0-8 [facility] [address] [place] Work Phone: Comment on above: PERFORMED BY:[facility] [place] [phone] MEDICAL DIRECTORVITOR ZARATE M.D. 4+ above high threshold Negative -[facility] [address] [place] Work Phone: 0-1 Normal 0-2 -[facility] [address] [place] Work Phone: Innumerable above high threshold 0-4 -[facility] [address] [place] Work Phone: Positive above high threshold Negative -[facility] [address] [place] Work Phone: 5.5\S\5.5 Normal 5.0-9.0 -[facility] [address] [place] Work Phone: 1.015\S\1.015 Normal 1.001-1.03 0 -[facility] [address] [place] Work Phone: Turbid Critically abnormal Clear -[facility] [address] [place] Work Phone: Yellow Normal Yellow -[facility] [address] [place] Work Phone: [facility] [place] [address] [place] Work Phone: 21\S\21 Normal [facility] [place] [address] [place] Work Phone: 21.8\S\21.8 below low threshold 23.0-27.0 [facility] [place] [address] [place] Work Phone: 7.2\S\7.2 Normal 6.6-9.7 [facility] [address] [place] Work Phone: 95.4\S\95.4 Normal 95.0-100.0 [facility] [place] [address] [place] Work Phone: -2.7\S\-2.7 Normal -3.0-3.0 -[facility] [address] [place] Work Phone: 20.8\S\20.8 below low threshold 23.0-29.0 -[facility] [facility] [place] [address] [place] Work Phone: [phone] 76.9\S\76.9 below low threshold 80.0-100.0 -[facility] [place] [address] [place] Work Phone: 32.1\S\32.1 below low threshold 35.0-45.0 -[facility] [address] [place] Work Phone: 7.43\S\7.43 Normal 7.35-7.45 [facility] [address] [place] Work Phone: Normal [facility] [place] [address] [place] Work Phone: Comment on above: Critical Value gustafson d on: 06/23/2021 at 13:35PERFORMED BY:[place] [address] [address] [place] [phone] MEDICAL DIRECTORVITOR ZARATE M.D. Right Radial Normal [facility] [place] [address] [place] Work Phone: 24.4\S\24.4 Normal 22.0-30.0 [facility] [place] [address] [place] Work Phone: Comment on above: PERFORMED BY:[place] [address] [address] [place] [id number] MEDICAL DIRECTORVITOR ZARATE M.D. 104\S\104 Normal 95-114 -[facility] [place] [address] [place] Work Phone: [phone] 4.4\S\4.4 Normal 3.5-5.1 -[facility] [place] [address] [place] Work Phone: [phone] 141\S\141 Normal 136-146 [facility] [place] [address] [place] Work Phone: -[facility] [place] [address] [place] Work Phone: Radiologyon 06-23-2021 Portable XR Chest Views Normal [facility] [place] [address] [place] Work Phone: BASIC METABOLIC PANELon 07-20 Calcium [Mass/Vol] 8.4 mg/dL Low 8.6-10.3 [facility] Comment on above: Order Comment: No: D o not add to previous draw Pt care Performed By: #### 0 0071 #### [facility] [address] [place] [address], [place] Chloride [Moles/Vol] 105 mmol/L Normal 98-107 [facility] Comment on above: Order Comment: No: D o not add to previous draw Pt care Performed By: #### 0 0071 #### [facility] [address] [place] [address], [place] CO2 [Moles/Vol] 23 mmol/L Normal 21-31 [facility] Comment on above: Order Comment: No: D o not add to previous draw Pt care Performed By: #### 0 0071 #### [facility] [address] [place] [address], [place] Creatinine [Mass/Vol] 1.14 mg/dL Normal 0.60-1.20 [facility] Comment on above: Order Comment: No: D o not add to previous draw Pt care Performed By: #### 0 0071 #### [facility] [address] [place] [address], [place] GFR/1.73 sq M predicted among blacks MDRD (S/P/Bld) [Vol rate/Area] 56 ml/min/1.73sq m Abnormal >60 [facility] Comment on above: Order Comment: No: D o not add to previous draw Pt care Result Comment: Calc ulation may not be valid for patients over 70 years Performed By: #### 0 0071 #### [facility] [address] [place] [address], [place] GFR/1.73 sq M predicted among non-blacks MDRD (S/P/Bld) [Vol rate/Area] 46 ml/min/1.73sq m Abnormal >60 [facility] Comment on above: Order Comment: No: D o not add to previous draw Pt care Result Comment: Calc ulation may not be valid for patients over 70 years Performed By: #### 0 0071 #### [facility] [address] [place] [address], [place] Glucose [Mass/Vol] 151 mg/dL High 70-100 [facility] Comment on above: Order Comment: No: D o not add to previous draw Pt care Performed By: #### 0 0071 #### [facility] [address] [place] [address], [place] Potassium [Moles/Vol] 3.9 mmol/L Normal 3.5-5.1 [facility] Comment on above: Order Comment: No: D o not add to previous draw Pt care Performed By: #### 0 0071 #### [facility] [address] [facility] [place] [address], [place] Sodium [Moles/Vol] 139 mmol/L Normal 136-145 [facility] Comment on above: Order Comment: No: D o not add to previous draw Pt care Performed By: #### 0 0071 #### [facility] [address] [facility] [place] [address], [place] Urea nitrogen [Mass/Vol] 14 mg/dL Normal 7-25 [facility] Comment on above: Order Comment: No: D o not add to previous draw Pt care Performed By: #### 0 0071 #### [facility] [address] [facility] [place] [address], [place] CTA CHESTon 07-31-2020 CTA CHEST [facility] Department of Radiology [address] [place] [id number] Patient Name: AUSTIN GOLDEN : 1940 Sex: F Age: Race: White Pt. Location: [id number] Patient Status: D Ordered Date: 07/31/2020 10:25:00 [...] reports Electronically signed: Drew Rios. Transcribed by: [email or web address], User Resident: SANTO LAZO Electronically Signed by: DREW RIOS @ 08/02/2020 09:34 AM I personally read this/these film(s) with this resident Normal [facility] Comment on above: Order Comment: 12 ho urs post vitamin K administration/pre-procedure warfarin reversal No: Do not add to previous draw PROTHROMBIN TIMEon 0 INR Coag (PPP) [Relative time] 1.10 {INR} Normal 0.91-1.16 [facility] Comment on above: Order Comment: [...] CHEST 1995;108:231S-246S. Performed By: #### 0 0071, 76219 #### [facility] [address] PT Coag (PPP) [Time] 14.2 s Normal 12.3-14.8 [facility] Comment on above: Order Comment: No: D o not add to previous draw Result Comment: ALL RESULTS MUST BE INTERPRETED WITH RESPECT TO BLOOD DRAWING ARTIFACT OR DILUTION ERROR OF ANTICOAGULANT AT THE TIME OF SAMPLING. Performed By: #### 0 0071, 65631 #### [facility] [address] UFH HEPARIN ASSAYon 07-31-20 20 UNFRACTIONATED HEPARIN 0.32 IU/mL Normal 0.30-0.70 [facility] Comment on above: Result Comment: Aracelis roxaban and Apixaban will interfere with the anti Xa assay used to monitor UFH and LMWH. Performed By: #### 0 0071, 39236 #### [facility] [address] URINALYSIS REFLEXon 07-31-20 20 Appearance (U) CLOUDY Abnormal CLEAR [facility] Comment on above: Order Comment: No: D o not add to previous draw Performed By: #### 5 3629, 05114, 54034 #### [facility] [address] Bilirubin [Mass/Vol] Negative Normal NEGATIVE [facility] Comment on above: Order Comment: No: D o not add to previous draw Performed By: #### 5 0669, 61577, 50204 #### [facility] [address] [place] [address], [place] BLOOD LARGE Abnormal NEGATIVE [facility] Comment on above: Order Comment: No: D o not add to previous draw Performed By: #### 5 3629, 14954, 80219 #### [facility] [address] [place] [address], [place] Color (U) NEGIN Abnormal YELLOW [facility] Comment on above: Order Comment: No: D o not add to previous draw Performed By: #### 5 9, 39389, 63713 #### [facility] [address] [place] [address], [place] EPIS MANY Abnormal FEW,OCC,NO NE SEEN [facility] Comment on above: Order Comment: No: D o not add to previous draw Performed By: #### 5 3628, 67389, 14650 #### [facility] [address] [place] [address], [place] Glucose [Mass/Vol] Negative Normal NEGATIVE [facility] Comment on above: Order Comment: No: D o not add to previous draw Performed By: #### 5 9, 41724, 46525 #### [facility] [address] [place] [address], [place] KETONE Negative Normal NEGATIVE [facility] Comment on above: Order Comment: No: D o not add to previous draw Performed By: #### 5 362, 46014, 53193 #### [facility] [address] [place] [address], [place] LEUK GEOFFREY MODERATE Abnormal NEGATIVE [facility] Comment on above: Order Comment: No: D o not add to previous draw Performed By: #### 5 362, 33561, 07002 #### [facility] [address] [place] [address], [place] MUCUS THREADS FEW Abnormal NONE SEEN [facility] Comment on above: Order Comment: No: D o not add to previous draw Performed By: #### 5 3629, 03447, 73007 #### [facility] [address] [place] [address], [facility] Nitrite Ql (U) Positive Abnormal NEGATIVE [facility] Comment on above: Order Comment: No: D o not add to previous draw Performed By: #### 5 3628, 53171, 74813 #### [facility] [address] [place] [address], [facility] pH (Bld) 5.0 Normal 5.0-8.0 [facility] Comment on above: Order Comment: No: D o not add to previous draw Performed By: #### 5 362, 09285, 90249 #### [facility] [address] [place] [address], [facility] Protein (U) [Mass/Vol] 100 mg/dL Abnormal NEGATIVE [facility] Comment on above: Order Comment: No: D o not add to previous draw Performed By: #### 5 3628, 85131, 55395 #### [facility] [address] [facility] [place] [address], [facility] RBC (U) [#/Vol] /uL Abnormal NONE SEEN [facility] Comment on above: Order Comment: No: D o not add to previous draw Performed By: #### 5 362, 51384, 71501 #### [facility] [address] [facility] [place] [address], [facility] SPEC GRAV 1.025 High 1.015-1.02 0 [facility] Comment on above: Order Comment: No: D o not add to previous draw Performed By: #### 5 362, 15369, 16249 #### [facility] [address] [facility] [place] [address], [facility] WBC UA >100 Abnormal NONE SEEN [facility] Comment on above: Order Comment: No: D o not add to previous draw Performed By: #### 5 362, 13089, 21213 #### [facility] [address] [place] [address], [facility] BASIC METABOLIC PANELon 12- Calcium [Mass/Vol] 8.1 mg/dL Low 8.6-10.3 [facility] Comment on above: Order Comment: No: D o not add to previous draw Performed By: #### 0 0071 #### [facility] [address] [place] [address], [place] Chloride [Moles/Vol] 108 mmol/L High 98-107 [facility] Comment on above: Order Comment: No: D o not add to previous draw Performed By: #### 0 0071 #### [facility] [address] [place] [address], [place] CO2 [Moles/Vol] 24 mmol/L Normal 21-31 [facility] Comment on above: Order Comment: No: D o not add to previous draw Performed By: #### 0 0071 #### [facility] [address] [place] [address], [place] Creatinine [Mass/Vol] 0.99 mg/dL Normal 0.60-1.20 [facility] Comment on above: Order Comment: No: D o not add to previous draw Performed By: #### 0 0071 #### [facility] [address] [place] [address], [place] GFR/1.73 sq M predicted among blacks MDRD (S/P/Bld) [Vol rate/Area] mL/min/{1.73_m2} Normal >60 [facility] Comment on above: Order Comment: No: D o not add to previous draw Result Comment: Calc ulation may not be valid for patients over 70 years Performed By: #### 0 0071 #### [facility] [address] [place] [address], [place] GFR/1.73 sq M predicted among non-blacks MDRD (S/P/Bld) [Vol rate/Area] 54 ml/min/1.73sq m Abnormal >60 [facility] Comment on above: Order Comment: No: D o not add to previous draw Result Comment: Calc ulation may not be valid for patients over 70 years Performed By: #### 0 0071 #### [facility] [address] [place] [address], [place] Glucose [Mass/Vol] 104 mg/dL High 70-100 [facility] Comment on above: Order Comment: No: D o not add to previous draw Performed By: #### 0 0071 #### [facility] [address] [place] [address], [place] Potassium [Moles/Vol] 3.5 mmol/L Normal 3.5-5.1 [facility] Comment on above: Order Comment: No: D o not add to previous draw Performed By: #### 0 0071 #### [facility] [address] [place] [address], [place] Sodium [Moles/Vol] 141 mmol/L Normal 136-145 [facility] Comment on above: Order Comment: No: D o not add to previous draw Performed By: #### 0 0071 #### [facility] [address] [place] [address], [place] Urea nitrogen [Mass/Vol] 17 mg/dL Normal 7-25 [facility] Comment on above: Order Comment: No: D o not add to previous draw Performed By: #### 0 0071 #### [facility] [address] [place] [address], [place] CBC COMPLETE BLOOD COUNTon 09-30-2019 Erythrocyte distribution width (RBC) [Ratio] 17.3 % High 11.5-15.0 [facility] Comment on above: Order Comment: 12 ho urs post vitamin K administration/pre-procedure warfarin reversal No: Do not add to previous draw Performed By: #### 5 6101 #### [facility] [address] [place] [address], [place] Hematocrit (Bld) [Volume fraction] 37.7 % Normal 36.0-45.0 [facility] Comment on above: Order Comment: 12 ho urs post vitamin K administration/pre-procedure warfarin reversal No: Do not add to previous draw Performed By: #### 5 6101 #### [facility] [address] [place] [address], [facility] Hemoglobin (Bld) [Mass/Vol] 12.0 g/dL Normal 12.0-15.0 [facility] Comment on above: Order Comment: 12 ho urs post vitamin K administration/pre-procedure warfarin reversal No: Do not add to previous draw Performed By: #### 5 6101 #### [facility] [address] [facility] [place] [id number], [facility] MCH (RBC) [Entitic mass] 29.0 pg Normal 27.0-33.0 [facility] Comment on above: Order Comment: 12 ho urs post vitamin K administration/pre-procedure warfarin reversal No: Do not add to previous draw Performed By: #### 5 6101 #### [facility] [address] [place] [address], [facility] MCHC (RBC) [Mass/Vol] 31.8 g/dL Low 32.0-35.0 [facility] Comment on above: Order Comment: 12 ho urs post vitamin K administration/pre-procedure warfarin reversal No: Do not add to previous draw Performed By: #### 5 6101 #### [facility] [address] [place] [address], [facility] MCV (RBC) [Entitic vol] 91.1 fL Normal 82.0-98.0 [facility] Comment on above: Order Comment: 12 ho urs post vitamin K administration/pre-procedure warfarin reversal No: Do not add to previous draw Performed By: #### 5 6101 #### [facility] [address] [place] [address], [facility] Nucleated RBC/100 WBC (Bld) [Ratio] 0 % Normal 0-0 [facility] Comment on above: Order Comment: 12 ho urs post vitamin K administration/pre-procedure warfarin reversal No: Do not add to previous draw Performed By: #### 5 6101 #### [facility] [address] [place] [address], [facility] PLAT CNT 233 10*3/uL Normal 150-400 [facility] Comment on above: Order Comment: 12 ho urs post vitamin K administration/pre-procedure warfarin reversal No: Do not add to previous draw Performed By: #### 5 6101 #### [facility] [address] [place] [address], [facility] RBC (Bld) [#/Vol] 4.14 10*6/uL Normal 3.80-5.00 [facility] Comment on above: Order Comment: 12 ho urs post vitamin K administration/pre-procedure warfarin reversal No: Do not add to previous draw Performed By: #### 5 6101 #### [facility] [address] [facility] [place] [address], [facility] WBC (Bld) [#/Vol] 9.44 10*3/uL Normal 4.00-10.60 [facility] Comment on above: Order Comment: 12 ho urs post vitamin K administration/pre-procedure warfarin reversal No: Do not add to previous draw Performed By: #### 5 6101 #### [facility] [address] [facility] [place] [address], [facility] HEMATOCRITon 07-30-2020 Hematocrit (Bld) [Volume fraction] 43.9 % Normal 36.0-45.0 [facility] Comment on above: Order Comment: No: D o not add to previous draw Performed By: #### 5 3629, 36346, 26440 #### [facility] [address] [facility] [place] [address], [facility] HEMOGLOBINon 07-30-2020 Hemoglobin (Bld) [Mass/Vol] 13.5 g/dL Normal 12.0-15.0 [facility] Comment on above: Order Comment: No: D o not add to previous draw Performed By: #### 5 3629, 52359, 95028 #### [facility] [address] PROTHROMBIN TIMEon 0 INR Coag (PPP) [Relative time] 1.22 {INR} High 0.91-1.16 [facility] Comment on above: Order Comment: [...] CHEST 1995;108:231S-246S. Performed By: #### 0 0071, 00955 #### [facility] [address] [facility] [place] [address], [facility] PT Coag (PPP) [Time] 15.4 s High 12.3-14.8 [facility] Comment on above: Order Comment: No: D o not add to previous draw Result Comment: ALL RESULTS MUST BE INTERPRETED WITH RESPECT TO BLOOD DRAWING ARTIFACT OR DILUTION ERROR OF ANTICOAGULANT AT THE TIME OF SAMPLING. Performed By: #### 0 0071, 01263 #### [facility] [address] [facility] [address] UFH HEPARIN ASSAYon 07-30-20 20 UNFRACTIONATED HEPARIN 0.45 IU/mL Normal 0.30-0.70 Th [facility] Comment on above: Result Comment: [place] roxaban and Apixaban will interfere with the anti Xa assay used to monitor UFH and LMWH. Performed By: #### 0 007, 44684 #### [facility] [address] UNFRACTIONATED HEPARIN 0.52 IU/mL Normal 0.30-0.70 [facility] Comment on above: Result Comment: Aracelis roxaban and Apixaban will interfere with the anti Xa assay used to monitor UFH and LMWH. Performed By: #### 0 0071, 74928 #### [facility] [address] APTTon 07-29-2020 aPTT Coag (Bld) [Time] s Critically high 25.0-35. 0 [facility] Comment on above: Result Comment: ALL [...] RN @0210 Performed By: #### 0 70, 63976 #### [facility] [address] BASIC METABOLIC PANELon 07-20 Calcium [Mass/Vol] 7.4 mg/dL Low 8.6-10.3 [facility] Comment on above: Order Comment: No: D o not add to previous draw Performed By: #### 0 0071, 71759 #### [facility] [address] [place] [address], [facility] Chloride [Moles/Vol] 101 mmol/L Normal 98-107 [facility] Comment on above: Order Comment: No: D o not add to previous draw Performed By: #### 0 0071, 89830 #### [facility] [address] [place] [address], [place] CO2 [Moles/Vol] 24 mmol/L Normal 21-31 [facility] Comment on above: Order Comment: No: D o not add to previous draw Performed By: #### 0 0071, 22570 #### [facility] [address] [place] [address], [place] Creatinine [Mass/Vol] 1.02 mg/dL Normal 0.60-1.20 [facility] Comment on above: Order Comment: No: D o not add to previous draw Performed By: #### 0 0071, 95232 #### [facility] [address] [place] [address], [place] GFR/1.73 sq M predicted among blacks MDRD (S/P/Bld) [Vol rate/Area] mL/min/{1.73_m2} Normal >60 [facility] Comment on above: Order Comment: No: D o not add to previous draw Result Comment: Calc ulation may not be valid for patients over 70 years Performed By: #### 0 0071, 58491 #### [facility] [address] [place] [address], [place] GFR/1.73 sq M predicted among non-blacks MDRD (S/P/Bld) [Vol rate/Area] 53 ml/min/1.73sq m Abnormal >60 [facility] Comment on above: Order Comment: No: D o not add to previous draw Result Comment: Calc ulation may not be valid for patients over 70 years Performed By: #### 0 0071, 12832 #### [facility] [address] [place] [address], [place] Glucose [Mass/Vol] 314 mg/dL High 70-100 [facility] Comment on above: Order Comment: No: D o not add to previous draw Performed By: #### 0 0071, 57818 #### [facility] [address] [facility] [place] [address], [facility] Potassium [Moles/Vol] 3.1 mmol/L Low 3.5-5.1 [facility] Comment on above: Order Comment: No: D o not add to previous draw Performed By: #### 0 0071, 63088 #### [facility] [address] [facility] [place] [address], [facility] Sodium [Moles/Vol] 139 mmol/L Normal 136-145 [facility] Comment on above: Order Comment: No: D o not add to previous draw Performed By: #### 0 0071, 99657 #### [facility] [address] [facility] [place] [address], [facility] Urea nitrogen [Mass/Vol] 15 mg/dL Normal 7-25 [facility] Comment on above: Order Comment: No: D o not add to previous draw Performed By: #### 0 0071, 08108 #### [facility] [address] [facility] [place] [address], [facility] MAGNESIUM BLOODon 07-29-2020 Magnesium [Mass/Vol] 1.5 mg/dL Low 1.9-2.7 [facility] Comment on above: Order Comment: No: D o not add to previous draw Performed By: #### 0 0071, 20675 #### [facility] [address] [facility] [place] [address], [facility] PORTABLE CHEST 1 VIEWon 07-20 PORTABLE CHEST 1 VIEW [facility] Department of Radiology [address] [place] [address] Patient Name: AUSTIN GOLDEN : 1940 Sex: F Age: Race: White Pt. Location: [address] [place] [address] Patient Status: I Ordered Date: 07/29/2020 8:25:00 [...] atelectasis. Electronically signed: Emmanuel Armas. Transcribed by: [id number], User Resident: Electronically Signed by: EMMANUEL ARMAS @ 07/29/2020 09:41 AM Normal [facility] Comment on above: Order Comment: 12 ho urs post vitamin K administration/pre-procedure warfarin reversal No: Do not add to previous draw PROTHROMBIN TIMEon 0 INR Coag (PPP) [Relative time] 1.45 {INR} High 0.91-1.16 [facility] Comment on above: Order Comment: No: D o not add to previous draw Result Comment: [facility] P RECOMMENDED INR FOR WARFARIN [...] CHEST 1995;108:231S-246S. Performed By: #### 0 0071, 11864 #### [facility] [address] PT Coag (PPP) [Time] 17.7 s High 12.3-14.8 [facility] Comment on above: Order Comment: No: D o not add to previous draw Result Comment: ALL RESULTS MUST BE INTERPRETED WITH RESPECT TO BLOOD DRAWING ARTIFACT OR DILUTION ERROR OF ANTICOAGULANT AT THE TIME OF SAMPLING. Performed By: #### 0 0071, 39442 #### [facility] [address] [facility]. [address] UFH HEPARIN ASSAYon 20 20 UNFRACTIONATED HEPARIN 0.89 IU/mL High 0.30-0.70 [facility] Comment on above: Result Comment: [place] roxaban and Apixaban will interfere with the anti Xa assay used to monitor UFH and LMWH. Performed By: #### 0 0071, 44115 #### [facility] [address] [facility]. [address] UNFRACTIONATED HEPARIN 0.78 IU/mL High 0.30-0.70 [facility] Comment on above: Result Comment: Aracelis roxaban and Apixaban will interfere with the anti Xa assay used to monitor UFH and LMWH. Performed By: #### 0 0071, 02124 #### [facility] [address] [facility] [place] [address], [facility] UNFRACTIONATED HEPARIN >1.00 Critically high 0.30-0.7 0 [facility] [facility] Comment on above: Order Comment: 12 ho urs post vitamin K administration/pre-procedure warfarin reversal No: Do not add to previous draw Result Comment: Aracelis roxaban and Apixaban will interfere with the anti Xa assay used to monitor UFH and LMWH. UFH=1.22 RESULTS CHECKED AND CALLED. ACCURATELY READ BACK BY SAEID RING RN @0210 Performed By: #### 5 [id number] #### [facility] [address] [facility] [place] [address], [facility] BASIC METABOLIC PANELon 12-0 -2019 Calcium [Mass/Vol] 8.5 mg/dL Low 8.6-10.3 [facility] Comment on above: Order Comment: No: D o not add to previous draw Performed By: #### 0 0071 #### [facility] [address] [facility] [place] [address], [facility] Chloride [Moles/Vol] 108 mmol/L High 98-107 [facility] Comment on above: Order Comment: No: D o not add to previous draw Performed By: #### 0 0071 #### [facility] [address] [facility] [place] [address], [facility] CO2 [Moles/Vol] 24 mmol/L Normal 21-31 [facility] Comment on above: Order Comment: No: D o not add to previous draw Performed By: #### 0 0071 #### [facility] [address] [facility] [place] [address], [facility] Creatinine [Mass/Vol] 1.03 mg/dL Normal 0.60-1.20 [facility] Comment on above: Order Comment: No: D o not add to previous draw Performed By: #### 0 0071 #### [facility] [address] [facility] [place] [address], [facility] GFR/1.73 sq M predicted among blacks MDRD (S/P/Bld) [Vol rate/Area] mL/min/{1.73_m2} Normal >60 [facility] Comment on above: Order Comment: No: D o not add to previous draw Result Comment: Calc ulation may not be valid for patients over 70 years Performed By: #### 0 0071 #### [facility] [address] [place] [address], [place] GFR/1.73 sq M predicted among non-blacks MDRD (S/P/Bld) [Vol rate/Area] 52 ml/min/1.73sq m Abnormal >60 [facility] Comment on above: Order Comment: No: D o not add to previous draw Result Comment: Calc ulation may not be valid for patients over 70 years Performed By: #### 0 0071 #### [facility] [address] [place] [address], [place] Glucose [Mass/Vol] 120 mg/dL High 70-100 [facility] Comment on above: Order Comment: No: D o not add to previous draw Performed By: #### 0 0071 #### [facility] [address] [place] [address], [place] Potassium [Moles/Vol] 3.7 mmol/L Normal 3.5-5.1 [facility] Comment on above: Order Comment: No: D o not add to previous draw Performed By: #### 0 0071 #### [facility] [address] [place] [address], [place] Sodium [Moles/Vol] 141 mmol/L Normal 136-145 [facility] Comment on above: Order Comment: No: D o not add to previous draw Performed By: #### 0 0071 #### [facility] [address] [place] [address], [place] Urea nitrogen [Mass/Vol] 24 mg/dL Normal 7-25 [facility] Comment on above: Order Comment: No: D o not add to previous draw Performed By: #### 0 0071 #### [facility] [address] [place] [id number], [facility] CBC COMPLETE BLOOD COUNTon 09-28-2019 Erythrocyte distribution width (RBC) [Ratio] 16.9 % High 11.5-15.0 [facility] Comment on above: Order Comment: 12 ho urs post vitamin K administration/pre-procedure warfarin reversal No: Do not add to previous draw Performed By: #### 5 [id number] #### [facility] [address] [place] [address], [facility] Hematocrit (Bld) [Volume fraction] 40.8 % Normal 36.0-45.0 [facility] Comment on above: Order Comment: 12 ho urs post vitamin K administration/pre-procedure warfarin reversal No: Do not add to previous draw Performed By: #### 5 [id number] #### [facility] [address] [place] [address], [facility] Hemoglobin (Bld) [Mass/Vol] 12.6 g/dL Normal 12.0-15.0 [facility] Comment on above: Order Comment: 12 ho urs post vitamin K administration/pre-procedure warfarin reversal No: Do not add to previous draw Performed By: #### 5 [id number] #### [facility] [address] [place] [address], [facility] MCH (RBC) [Entitic mass] 28.5 pg Normal 27.0-33.0 [facility] Comment on above: Order Comment: 12 ho urs post vitamin K administration/pre-procedure warfarin reversal No: Do not add to previous draw Performed By: #### 5 [id number] #### [facility] [address] [place] [address], [facility] MCHC (RBC) [Mass/Vol] 30.9 g/dL Low 32.0-35.0 [facility] Comment on above: Order Comment: 12 ho urs post vitamin K administration/pre-procedure warfarin reversal No: Do not add to previous draw Performed By: #### 5 [id number] #### [facility] [address] [place] [address], [facility] MCV (RBC) [Entitic vol] 92.3 fL Normal 82.0-98.0 [facility] Comment on above: Order Comment: 12 ho urs post vitamin K administration/pre-procedure warfarin reversal No: Do not add to previous draw Performed By: #### 5 [id number] #### [facility] [address] [place] [address], [facility] Nucleated RBC/100 WBC (Bld) [Ratio] 1 % High 0-0 [facility] Comment on above: Order Comment: 12 ho urs post vitamin K administration/pre-procedure warfarin reversal No: Do not add to previous draw Performed By: #### 5 [id number] #### [facility] [address] [place] [address], [facility] PLAT CNT 245 10*3/uL Normal 150-400 [facility] Comment on above: Order Comment: 12 ho urs post vitamin K administration/pre-procedure warfarin reversal No: Do not add to previous draw Performed By: #### 5 [id number] #### [facility] [address] [place] [address], [facility] RBC (Bld) [#/Vol] 4.42 10*6/uL Normal 3.80-5.00 [facility] Comment on above: Order Comment: 12 ho urs post vitamin K administration/pre-procedure warfarin reversal No: Do not add to previous draw Performed By: #### 5 [id number] #### [facility] [address] [facility] [place] [address], [facility] WBC (Bld) [#/Vol] 9.82 10*3/uL Normal 4.00-10.60 [facility] Comment on above: Order Comment: 12 ho urs post vitamin K administration/pre-procedure warfarin reversal No: Do not add to previous draw Performed By: #### 5 [id number] #### [facility] [address] [place] [address], [facility] CT BRAIN WO CONTRASTon 07-28 CT BRAIN WO CONTRAST [facility] Department of Radiology [address] [place] [phone] Patient Name: AUSTIN GOLDEN : 1940 Sex: F Age: Race: White Pt. Location: [id number] Patient Status: I Ordered Date: 07/28/2020 4:35:00 PM Completed Date: 07/28/2020 04:43 PM Requesting Provider: ABHILASH GO Attending Provider: JELANI SORIA Report Copy To: Signs & Symptoms: stroke alert in labeler post vira History: stroke alert in labeler post vira Comments: stroke alert in labeler post vira Exam: CT BRAIN WO CONTRAST CT BRAIN WO CONTRAST 07/28/2020 4:43 PM CLINICAL INDICATIONS: stroke alert in labeler post vira TECHNOLOGIST COMMENTS: left sided weakness QUESTION FOR THE RADIOLOGIST: stroke alert in labeler post vira PROTOCOL: Axial CT images of [...] findings. Electronically signed: Sukhdev Javier. Transcribed by: [email or web address], User Resident: Electronically Signed by: SUKHDEV JAVIER @ 07/28/2020 04:48 PM Normal [facility] Comment on above: Order Comment: 12 ho urs post vitamin K administration/pre-procedure warfarin reversal No: Do not add to previous draw CTA HEADon 07-28-2020 CTA HEAD [facility] Department of Radiology [address] [place] [phone] Patient Name: AUSTIN GOLDEN : 1940 Sex: F Age: Race: White Pt. Location: [id number] Patient Status: I Ordered Date: 07/28/2020 4:35:00 PM Completed Date: 07/28/2020 05:11 PM Requesting Provider: ABHILASH GO Attending Provider: JELANI SORIA Report Copy To: Signs & Symptoms: stroke alert in labeler post vira History: stroke alert in labeler post vira Comments: stroke alert in labeler post vira Exam: CTA HEAD CTA HEAD 07/28/2020 5:11 PM CLINICAL INDICATIONS: stroke alert in labeler post vira TECHNOLOGIST COMMENTS: post vira stroke alert weakness QUESTION FOR THE RADIOLOGIST: stroke alert in labeler post vira PROTOCOL: Axial CT angiography images [...] dilatation, dissection or occlusion. Electronically signed: Sukhdev aJvier. Transcribed by: [email or web address], User Resident: Electronically Signed by: SUKHDEV JAIVER @ 07/28/2020 05:16 PM Normal [facility] Comment on above: Order Comment: No: D o not add to previous draw CTA NECKon 07-28-2020 CTA NECK [facility] Department of Radiology [address] [place] [phone] Patient Name: AUSTIN GOLDEN : 1940 Sex: F Age: Race: White Pt. Location: [id number] Patient Status: I Ordered Date: 07/28/2020 4:35:00 PM Completed Date: 07/28/2020 05:11 PM Requesting Provider: ABHILASH GO Attending Provider: JELANI SORIA Report Copy To: Signs & Symptoms: stroke alert in labeler post vira History: stroke alert in labeler post vira Comments: stroke alert in labeler post vira Exam: CTA NECK CTA NECK 07/28/2020 5:11 PM CLINICAL INDICATIONS: stroke alert in labeler post vira TECHNOLOGIST COMMENTS: post vira stroke alert weakness QUESTION FOR THE RADIOLOGIST: stroke alert in labeler post vira PROTOCOL: Axial CT angiography images were obtained with IV contrast. CONTRAST: TECHNIQUE: Multi-detector CT angiography axial slices of the neck were obtained during intravenous administration of IV contrast material. Sagittal, coronal, and 3-D reconstructions were performed and viewed on a separate workstation. The [place] Symptomatic Carotid Endarterectomy Trial (NASCET) method for [...] achievable Electronically signed: Sukhdev Javier. Transcribed by: [email or web address], User Resident: Electronically Signed by: SUKHDEV JAVIER @ 07/28/2020 05:19 PM Normal [facility] Comment on above: Order Comment: No: D o not add to previous draw Cardiovascular Lab Reporton 07-28-2020 Cardiovascular Lab Report [facility] Patient Name: [facility] Maggy MR #: [id number] Department of Physician: Sanjuana Carrero Medicine M.Vannesa Division of Service Date: 07/28/2020 Cardiology Birthdate: 1940 Adult Cardiovascular Room #: 3AB [id number] [place] [address] Cardiovascular Laboratory Report PROCEDURE PERFORMED: Transesophageal echocardiogram and cardioversion. INDICATION: Atrial fibrillation. FELLOW: Hiwot Owens M.D. PROCEDURE IN DETAIL: An informed consent was obtained from the patient after explaining indications, risks and benefits, and alternatives. The patient understood and agreed and signed the consent form. The patient was brought to the labeler and transesophageal echocardiogram was performed under conscious [...] Owens MD Date Trans: 07/28/2020 04:12 P/boaz [id number] cc: Jazmin العلي D.O. [address] [place] [address] Normal [facility] PROTHROMBIN TIMEon 0 INR Coag (PPP) [Relative time] 1.67 {INR} High 0.91-1.16 [facility] Comment on above: Order Comment: [...] CHEST 1995;108:231S-246S. Performed By: #### 0 0071, [id number] #### [facility] [address] [facility] [place] [address], [facility] PT Coag (PPP) [Time] 19.7 s High 12.3-14.8 [facility] Comment on above: Order Comment: No: D o not add to previous draw Result Comment: ALL RESULTS MUST BE INTERPRETED WITH RESPECT TO BLOOD DRAWING ARTIFACT OR DILUTION ERROR OF ANTICOAGULANT AT THE TIME OF SAMPLING. Performed By: #### 0 0071, [id number] #### [facility] [address] [place] [address], [facility] INR Coag (PPP) [Relative time] 1.85 {INR} High 0.91-1.16 [facility] Comment on above: Order Comment: 12 [...] 1995;108:231S-246S. Performed By: #### 5 6101 #### [facility] [address] [facility] [place] [address], [facility] PT Coag (PPP) [Time] 21.4 s High 12.3-14.8 [facility] Comment on above: Order Comment: 12 ho urs post vitamin K administration/pre-procedure warfarin reversal No: Do not add to previous draw Result Comment: ALL RESULTS MUST BE INTERPRETED WITH RESPECT TO BLOOD DRAWING ARTIFACT OR DILUTION ERROR OF ANTICOAGULANT AT THE TIME OF SAMPLING. Performed By: #### 5 [id number] #### [facility] [address] [place] [address], [facility] UFH HEPARIN ASSAYon 07-28-20 20 UNFRACTIONATED HEPARIN >1.00 Critically high 0.30-0.7 0 [facility] Comment on above: Result Comment: Chelsea roxaban and Apixaban will interfere with the anti Xa assay used to monitor UFH and LMWH. Results called. Accurately read back by Khushbu Shetty RN at 1415. Patient given a bolus of heparin prior to draw, causing elevated heparin levels Performed By: #### 5 6101 #### [facility] [address] [facility]. [address] UNFRACTIONATED HEPARIN 0.38 IU/mL Normal 0.30-0.70 [facility] Comment on above: Result Comment: Aracelis roxaban and Apixaban will interfere with the anti Xa assay used to monitor UFH and LMWH. Performed By: #### 0 0071, [id number] #### [facility] [address] [facility]. [address] APTTon 07-27-2020 aPTT Coag (Bld) [Time] 39.6 s High 25.0-35.0 [facility] Comment on above: Order Comment: [...] THIS PURPOSE. Performed By: #### 5 3629, 65928, 13023 #### [facility] [address] [facility]. [address] aPTT Coag (Bld) [Time] 47.4 s High 25.0-35.0 [facility] Comment on above: Result Comment: ALL [...] PURPOSE. Performed By: #### 5 6101 #### [facility] [address] [facility]. [address] LIPID PROFILEon 07-27-2020 Cholesterol [Mass/Vol] 173 mg/dL Normal 120-200 [facility] Comment on above: Result Comment: CHOL ESTEROL REFERENCE RANGE: 20 YEARS AND OLDER CARDIOVASCULAR RISK Less than 200 mg/dl Low Risk 200 to 239 mg/dl Borderline Risk 240 mg/dl and greater High Risk Performed By: #### 5 3629, 12368, 87563 #### [facility] [address] [place] [address], [facility] Cholesterol in HDL [Mass/Vol] 33 mg/dL Normal 23-92 [facility] Comment on above: Result Comment: Slig ht variation in normal range could be due to gender and/or age. HDL CHOLESTEROL REFERENCE RANGE: 20 years and older Cardiovascular Risk > or =60 mg/dL Desirable 40 TO 59 mg/dL Low Risk <40 mg/dL High Risk Performed By: #### 5 1299, 92424, 97343 #### [facility] [address] [place] [address], [facility] Cholesterol in LDL [Mass/Vol] 98 mg/dL Normal 0-130 [facility] Comment on above: Result Comment: LDL IS A CALCULATION LDL IS ONLY VALID IF THE TRIG IS LESS THAN 400. Performed By: #### 5 0419, 61541, 99603 #### [facility] [address] [place] [address], [facility] Cholesterol.total/Chol esterol in HDL [Mass ratio] 5.2 {ratio} High 0.0-4.5 [facility] Comment on above: Performed By: #### 5 6329, 92999, 89469 #### [facility] [address] [place] [address], [place] NON-HDL CHOLESTEROL 140 mg/dL Normal [facility] Comment on above: Performed By: #### 5 0449, 70852, 30390 #### [facility] [address] [place] [address], [place] Triglyceride [Mass/Vol] 210 mg/dL High 40-149 [facility] Comment on above: Result Comment: TRIG LYCERIDE REFERENCE RANGE: 20 YEARS AND OLDER CARDIOVASCULAR RISK LESS THAN 150 mg/dl LOW RISK 150 TO 199 mg/dl BORDERLINE RISK 200 mg/dl AND GREATER HIGH RISK Performed By: #### 5 3629, 97604, 65786 #### [facility] [address] [facility] [place] [address], [facility] VLDL CHOL 42 mg/dL High 0-40 [facility] Comment on above: Performed By: #### 5 3629, 42731, 62256 #### [facility] [address] PROTHROMBIN TIMEon 07-27- 0 INR Coag (PPP) [Relative time] 2.07 {INR} High 0.91-1.16 [facility] Comment on above: Result Comment: ACCC [...] CHEST 1995;108:231S-246S. Performed By: #### 5 3629, 94091, 37090 #### [facility] [address] [facility] [place] [address], [facility] PT Coag (PPP) [Time] 23.4 s High 12.3-14.8 [facility] Comment on above: Result Comment: ALL RESULTS MUST BE INTERPRETED WITH RESPECT TO BLOOD DRAWING ARTIFACT OR DILUTION ERROR OF ANTICOAGULANT AT THE TIME OF SAMPLING. Performed By: #### 5 3629, 73009, 17765 #### [facility] [address] [facility] [place] [address], [facility] INR Coag (PPP) [Relative time] 3.07 {INR} High 0.91-1.16 [facility] Comment on above: Order Comment: 12 [...] 1995;108:231S-246S. Performed By: #### 5 6101 #### [facility] [address] [facility] [place] [address], [facility] PT Coag (PPP) [Time] 32.0 s High 12.3-14.8 [facility] Comment on above: Order Comment: 12 ho urs post vitamin K administration/pre-procedure warfarin reversal No: Do not add to previous draw Result Comment: ALL RESULTS MUST BE INTERPRETED WITH RESPECT TO BLOOD DRAWING ARTIFACT OR DILUTION ERROR OF ANTICOAGULANT AT THE TIME OF SAMPLING. Performed By: #### 5 6101 #### [facility] [address] [place] [address], [facility] TROPONIN-Ion 07-27-2020 Troponin I.cardiac [Mass/Vol] 0.01 ng/mL Normal 0.00-0.04 [facility] Comment on above: Order Comment: No: D o not add to previous draw Result Comment: REFE RENCE RANGES: 0.00 - 0.04 ng/ml NORMAL 0.05 - 0.50 ng/ml INDETERMINATE > 0.50 ng/ml CONSISTENT WITH AN M.I. Performed By: #### 5 3629, 22489, 40926 #### [facility] [address] UFH HEPARIN ASSAYon 07-27-20 20 UNFRACTIONATED HEPARIN <0.10 Critically low 0.30-0.70 [facility] Comment on above: Result Comment: Chelsea roxaban and Apixaban will interfere with the anti Xa assay used to monitor UFH and LMWH. RESULTS CHECKED AND CALLED. ACCURATELY READ BACK BY Saeid Lees RN at 2122. Performed By: #### 5 3629, 76187, 24922 #### [facility] [address] [facility]. [address] APTTon 07-26-2020 aPTT Coag (Bld) [Time] 44.0 s High 25.0-35.0 [facility] Comment on above: Order Comment: [...] THIS PURPOSE. Performed By: #### 5 3629, 10873, 57824 #### [facility] [address] BASIC METABOLIC PANELon Calcium [Mass/Vol] 8.4 mg/dL Low 8.6-10.3 [facility] Comment on above: Order Comment: No: D o not add to previous draw Performed By: #### 5 3629, 07132, 61289 #### [facility] [address] [place] [address], [place] Chloride [Moles/Vol] 107 mmol/L Normal 98-107 [facility] Comment on above: Order Comment: No: D o not add to previous draw Performed By: #### 5 3629, 75280, 71638 #### [facility] [address] [place] [address], [place] CO2 [Moles/Vol] 23 mmol/L Normal 21-31 [facility] Comment on above: Order Comment: No: D o not add to previous draw Performed By: #### 5 3629, 36896, 11353 #### [facility] [address] [place] [address], [place] Creatinine [Mass/Vol] 1.00 mg/dL Normal 0.60-1.20 [facility] Comment on above: Order Comment: No: D o not add to previous draw Performed By: #### 5 3629, 96625, 04824 #### [facility] [address] [place] [address], [place] GFR/1.73 sq M predicted among blacks MDRD (S/P/Bld) [Vol rate/Area] mL/min/{1.73_m2} Normal >60 [facility] Comment on above: Order Comment: No: D o not add to previous draw Result Comment: Calc ulation may not be valid for patients over 70 years Performed By: #### 5 3629, 50887, 51617 #### [facility] [address] [place] [address], [place] GFR/1.73 sq M predicted among non-blacks MDRD (S/P/Bld) [Vol rate/Area] 53 ml/min/1.73sq m Abnormal >60 [facility] Comment on above: Order Comment: No: D o not add to previous draw Result Comment: Calc ulation may not be valid for patients over 70 years Performed By: #### 5 3629, 92774, 51787 #### [facility] [address] [place] [address], [facility] Glucose [Mass/Vol] 144 mg/dL High 70-100 [facility] Comment on above: Order Comment: No: D o not add to previous draw Performed By: #### 5 3629, 81441, 48679 #### [facility] [address] [place] [address], [place] Potassium [Moles/Vol] 3.9 mmol/L Normal 3.5-5.1 [facility] Comment on above: Order Comment: No: D o not add to previous draw Performed By: #### 5 3629, 72356, 16155 #### [facility] [address] [place] [address], [facility] Sodium [Moles/Vol] 139 mmol/L Normal 136-145 [facility] Comment on above: Order Comment: No: D o not add to previous draw Performed By: #### 5 3629, 44301, 12413 #### [facility] [address] [place] [address], [facility] Urea nitrogen [Mass/Vol] 24 mg/dL Normal 7-25 [facility] Comment on above: Order Comment: No: D o not add to previous draw Performed By: #### 5 3629, 84762, 21392 #### [facility] [address] [place] [address], [facility] BNP (B-TYPE NATRIURETIC PEPT BALTA)on 07-26-2020 Natriuretic peptide B (Bld) [Mass/Vol] 259 pg/mL High 0-100 [facility] Comment on above: Order Comment: No: D o not add to previous draw Result Comment: Give n the appropriate clinical setting a BNP result of >100 pg/mL indicates congestive heart failure. Performed By: #### 5 3629, 57216, 80732 #### [facility] [address] [place] [address], [facility] CBC W/DIFFon 07-26-2020 ABS BASOPHILS 0.1 10*3/uL Normal 0.0-0.2 [facility] Comment on above: Order Comment: 12 ho urs post vitamin K administration/pre-procedure warfarin reversal No: Do not add to previous draw Performed By: #### 5 6101 #### [facility] [address] [facility] [place] [address], [facility] ABS IMM GRANS 0.3 10*3/uL High 0.0-0.2 [facility] Comment on above: Order Comment: 12 ho urs post vitamin K administration/pre-procedure warfarin reversal No: Do not add to previous draw Performed By: #### 5 6101 #### [facility] [address] [place] [address], [facility] ABS NEUTROPHILS 5.9 10*3/uL Normal 1.6-7.6 [facility] Comment on above: Order Comment: 12 ho urs post vitamin K administration/pre-procedure warfarin reversal No: Do not add to previous draw Performed By: #### 5 6101 #### [facility] [address] [place] [address], [facility] Basophils/100 WBC (Bld) 0.8 % Normal 0.0-1.0 [facility] Comment on above: Order Comment: 12 ho urs post vitamin K administration/pre-procedure warfarin reversal No: Do not add to previous draw Performed By: #### 5 6101 #### [facility] [address] [place] [id number], [facility] Eosinophils (Bld) [#/Vol] 0.4 10*3/uL Normal 0.0-0.5 [facility] Comment on above: Order Comment: 12 ho urs post vitamin K administration/pre-procedure warfarin reversal No: Do not add to previous draw Performed By: #### 5 [id number] #### [facility] [address] [facility] [place] [address], [facility] Eosinophils/100 WBC (Bld) 3.8 % Normal 0.0-6.0 [facility] Comment on above: Order Comment: 12 ho urs post vitamin K administration/pre-procedure warfarin reversal No: Do not add to previous draw Performed By: #### 5 [id number] #### [facility] [address] [place] [address], [facility] Erythrocyte distribution width (RBC) [Ratio] 16.9 % High 11.5-15.0 [facility] Comment on above: Order Comment: 12 ho urs post vitamin K administration/pre-procedure warfarin reversal No: Do not add to previous draw Performed By: #### 5 [id number] #### [facility] [address] [place] [address], [facility] Hematocrit (Bld) [Volume fraction] 43.8 % Normal 36.0-45.0 [facility] Comment on above: Order Comment: 12 ho urs post vitamin K administration/pre-procedure warfarin reversal No: Do not add to previous draw Performed By: #### 5 [id number] #### [facility] [address] [place] [address], [facility] Hemoglobin (Bld) [Mass/Vol] 13.7 g/dL Normal 12.0-15.0 [facility] Comment on above: Order Comment: 12 ho urs post vitamin K administration/pre-procedure warfarin reversal No: Do not add to previous draw Performed By: #### 5 [id number] #### [facility] [address] [place] [address], [facility] IMMATURE GRANS 3.6 % High 0.0-1.0 [facility] Comment on above: Order Comment: 12 ho urs post vitamin K administration/pre-procedure warfarin reversal No: Do not add to previous draw Performed By: #### 5 [id number] #### [facility] [address] [place] [address], [facility] Lymphocytes (Bld) [#/Vol] 2.1 10*3/uL Normal 1.2-4.0 [facility] Comment on above: Order Comment: 12 ho urs post vitamin K administration/pre-procedure warfarin reversal No: Do not add to previous draw Performed By: #### 5 [id number] #### [facility] [address] [place] [address], [facility] Lymphocytes/100 WBC (Bld) 22.0 % Normal 20.0-45.0 [facility] Comment on above: Order Comment: 12 ho urs post vitamin K administration/pre-procedure warfarin reversal No: Do not add to previous draw Performed By: #### 5 [id number] #### [facility] [address] [place] [address], [facility] MCH (RBC) [Entitic mass] 29.0 pg Normal 27.0-33.0 [facility] Comment on above: Order Comment: 12 ho urs post vitamin K administration/pre-procedure warfarin reversal No: Do not add to previous draw Performed By: #### 5 [id number] #### [facility] [address] [place] [address], [facility] MCHC (RBC) [Mass/Vol] 31.3 g/dL Low 32.0-35.0 [facility] Comment on above: Order Comment: 12 ho urs post vitamin K administration/pre-procedure warfarin reversal No: Do not add to previous draw Performed By: #### 5 [id number] #### [facility] [address] [place] [address], [facility] MCV (RBC) [Entitic vol] 92.6 fL Normal 82.0-98.0 [facility] Comment on above: Order Comment: 12 ho urs post vitamin K administration/pre-procedure warfarin reversal No: Do not add to previous draw Performed By: #### 5 [id number] #### [facility] [address] [place] [address], [facility] Monocytes (Bld) [#/Vol] 0.7 10*3/uL Normal 0.1-1.0 [facility] Comment on above: Order Comment: 12 ho urs post vitamin K administration/pre-procedure warfarin reversal No: Do not add to previous draw Performed By: #### 5 [id number] #### [facility] [address] [place] [address], [place] MONOS 7.5 % Normal 5.0-12.0 [facility] Comment on above: Order Comment: 12 ho urs post vitamin K administration/pre-procedure warfarin reversal No: Do not add to previous draw Performed By: #### 5 [id number] #### [facility] [address] [place] [address], [place] Neutrophils/100 WBC (Bld) 62.3 % Normal 40.0-72.0 [facility] Comment on above: Order Comment: 12 ho urs post vitamin K administration/pre-procedure warfarin reversal No: Do not add to previous draw Performed By: #### 5 [id number] #### [facility] [address] [place] [address], [place] Nucleated RBC/100 WBC (Bld) [Ratio] 1 % High 0-0 [facility] Comment on above: Order Comment: 12 ho urs post vitamin K administration/pre-procedure warfarin reversal No: Do not add to previous draw Performed By: #### 5 6101 #### [facility] [address] [place] [address], [place] PLAT CNT 296 10*3/uL Normal 150-400 [facility] Comment on above: Order Comment: 12 ho urs post vitamin K administration/pre-procedure warfarin reversal No: Do not add to previous draw Performed By: #### 5 [id number] #### [facility] [address] [place] [address], [place] RBC (Bld) [#/Vol] 4.73 10*6/uL Normal 3.80-5.00 [facility] Comment on above: Order Comment: 12 ho urs post vitamin K administration/pre-procedure warfarin reversal No: Do not add to previous draw Performed By: #### 5 6101 #### [facility] [address] [place] [address], [place] WBC (Bld) [#/Vol] 9.48 10*3/uL Normal 4.00-10.60 [facility] Comment on above: Order Comment: 12 ho urs post vitamin K administration/pre-procedure warfarin reversal No: Do not add to previous draw Performed By: #### 5 6101 #### [facility] [address] CPK-MB PROFILEon 07-26-2020 CK [Catalytic activity/Vol] 24 U/L Low 30-223 [facility] Comment on above: Order Comment: No: D o not add to previous draw Performed By: #### 1 0070, 82906, 70700, 34752, 05393, 26055 #### [facility] [address] [place] [address], [facility] CK.MB [Mass/Vol] 1.5 ng/mL Normal 0.0-5.0 [facility] Comment on above: Order Comment: No: D o not add to previous draw Result Comment: IF T OTAL CK <200 U/L AND: 1. CKMB IS 5-10 NG/ML----BORDERLINE 2. CKMB IS >10 NG/ML----INDICATIVE OF [place] OR IF TOTAL CK >200 U/L AND CKMB INDEX >1.9----INDIC[place] Performed By: #### 1 0070, 53770, 58729, 81302, 67003, 87497 #### [facility] [address] [place] [address], [facility] CK.MB [Mass/Vol] 6.3 ng/mL Critically high 0.0-1.9 [facility] Comment on above: Order Comment: No: D o not add to previous draw Performed By: #### 1 0070, 33499, 11798, 66311, 05777, 83951 #### [facility] [address] [place] [address], [facility] D DIMER TESTon 07-26-2020 D-DIMER TEST 2.34 mcg/mL FEU High 0.27-0.49 [facility] Comment on above: Order Comment: No: D o not add to previous draw Result Comment: D-Di ricky values of less than 0.50 ug/ml (FEU) are considered to be a negative predictor of thrombosis. However, the D-Dimer result should be used in conjunction with pretest probability and should not be used alone to diagnose a thrombotic event. Performed By: #### 5 3629, 12132, 49063 #### [facility] [address] [place], [place] [address] History and Physicalon 07-26 History and Physical MR#: [id number] [facility] Pt. Name: Austin Golden Admitted: 07/26/2020 Date of : 1940 Attending Physician: Jaqueline Quevedo M.D. Room #: 4AB [id number] Discharge Date: HISTORY AND PHYSICAL CHIEF COMPLAINT: Shortness of breath. HISTORY OF PRESENT ILLNESS: The patient is a 79-year-old female with a past medical history of atrial fibrillation, on Coumadin, fibromyalgia, hypertension, and history of COVID at the beginning of June, presented to [facility] as a direct transfer from [facility] ER. The patient presented to the ER today because of increasing shortness of breath. She states that it especially got worse over the weekends, so she came to the ER for evaluation. In the ER, she was found to be in atrial fibrillation with RVR and cardiology was called, so they requested the patient to be transferred to [facility]. Her initial heart rate was 120 [...] Normal affect and mood. LABORATORY DATA: From [facility] ER shows white blood cells 9.1, hemoglobin [...] and GI prophylaxis. 7. PT, OT, and Circuit Clerk for discharge planning. Electronically Signed by: Jaqueline Quevedo M.D. 07/27/2020 10:46 A Jaqueline Quevedo M.D. Date Dict: 07/26/2020/06:24 P/Jaqueline Quevedo M.D. Date Trans: 07/26/2020 07:50 P/mmo [id number] Normal [facility] LIVER BATTERYon 07-26-2020 Albumin [Mass/Vol] 3.4 g/dL Low 3.5-5.7 [facility] Comment on above: Order Comment: No: D o not add to previous draw Performed By: #### 5 3629, 23454, 22910 #### [facility] [address] [place] [address], [facility] ALKALINE PHOSPH 82 IU/L Normal 34-104 [facility] Comment on above: Order Comment: No: D o not add to previous draw Performed By: #### 5 3629, 63885, 38533 #### [facility] [address] [place] [address], [place] ALT [Catalytic activity/Vol] 28 U/L Normal 7-52 [facility] Comment on above: Order Comment: No: D o not add to previous draw Performed By: #### 5 3629, 13462, 63084 #### [facility] [address] [place] [address], [place] AST [Catalytic activity/Vol] 26 U/L Normal 13-39 [facility] Comment on above: Order Comment: No: D o not add to previous draw Performed By: #### 5 3629, 16832, 47441 #### [facility] [address] [place] [id number], [place] Bilirubin [Mass/Vol] 0.6 mg/dL Normal 0.3-1.0 [facility] Comment on above: Order Comment: No: D o not add to previous draw Performed By: #### 5 362, 19263, 59356 #### [facility] [address] [place] [address], [facility] Bilirubin.direct [Mass/Vol] 0.2 mg/dL Normal 0.0-0.2 [facility] Comment on above: Order Comment: No: D o not add to previous draw Performed By: #### 5 3629, 33510, 22137 #### [facility] [address] [place] [address], [facility] Protein [Mass/Vol] 5.8 g/dL Low 6.0-8.3 [facility] Comment on above: Order Comment: No: D o not add to previous draw Performed By: #### 5 3629, 98857, 76937 #### [facility] [address] [place] [address], [place] MAGNESIUM BLOODon 07-26-2020 Magnesium [Mass/Vol] 1.8 mg/dL Low 1.9-2.7 [facility] Comment on above: Order Comment: No: D o not add to previous draw Performed By: #### 5 3629, 78141, 83757 #### [facility] [address] [place] [address], [place] PHOSPHORUS BLOODon 0 Phosphate [Mass/Vol] 3.4 mg/dL Normal 2.5-5.0 [facility] Comment on above: Order Comment: No: D o not add to previous draw Performed By: #### 5 362, 22411, 27251 #### [facility] [address] [place] [address], [facility] PROTHROMBIN TIMEon 0 INR Coag (PPP) [Relative time] 3.23 {INR} High 0.91-1.16 [facility] Comment on above: Order Comment: No: [...] CHEST 1995;[id number]. Performed By: #### 5 3629, 33907, 53658 #### [facility] [address] [facility] [place] [address], [facility] PT Coag (PPP) [Time] 33.3 s High 12.3-14.8 [facility] Comment on above: Order Comment: No: D o not add to previous draw Result Comment: ALL RESULTS MUST BE INTERPRETED WITH RESPECT TO BLOOD DRAWING ARTIFACT OR DILUTION ERROR OF ANTICOAGULANT AT THE TIME OF SAMPLING. Performed By: #### 5 3629, 09313, 75608 #### [facility] [address] [place] [address], [facility] TROPONIN-Ion 07-26-2020 Troponin I.cardiac [Mass/Vol] 0.01 ng/mL Normal 0.00-0.04 [facility] Comment on above: Order Comment: No: D o not add to previous draw Result Comment: REFE RENCE RANGES: 0.00 - 0.04 ng/ml NORMAL 0.05 - 0.50 ng/ml INDETERMINATE > 0.50 ng/ml CONSISTENT WITH AN M.I. Performed By: #### 5 3629, 54284, 15163 #### [facility] [address] Vital Signs Date Time Vital Sign Value Performing Clinician Facility 05-18-2025 12:06-0400 Body height 149.86 cm Jazmin Ball DO Work Phone: [facility] 05-18-2025 12:06-0400 Body mass index (BMI) [Ratio] 26.7 kg/m2 Jazmin Ball DO Work Phone: [facility] 05-18-2025 12:06-0400 Body weight 60.1 kg Jazmin Ball DO Work Phone: [facility] 05-18-2025 12:06-0400 Diastolic blood pressure 68 mm[Hg] Jazmin Ball DO Work Phone: [facility] 05-18-2025 12:06-0400 Heart rate 112 /min Jazmin Ball DO Work Phone: [facility] 05-18-2025 12:06-0400 Inhaled oxygen flow rate 97 L/min Jazmin Ball DO Work Phone: [facility] 05-18-2025 12:06-0400 Respiratory rate 20 /min Jazmin Ball DO Work Phone: [facility] 05-18-2025 12:06-0400 Systolic blood pressure 102 mm[Hg] Jazmin Ball DO Work Phone: [facility] 05-07-2025 15:00-0400 Body height 149.9 cm Joseph Sepulveda DPM Work Phone: [facility] 05-07-2025 15:00-0400 Body mass index (BMI) [Ratio] 24.44 kg/m2 Joseph Sepulveda DPM Work Phone: [facility] 05-07-2025 15:00-0400 Body weight 54.88 kg Joseph Mu DPM Work Phone: [facility] 05-07-2025 15:00-0400 Respiratory rate 16 /min Joseph Mu DPM Work Phone: [facility] 04-30-2025 16:13-0400 Body height 149.9 cm Joseph Sepulveda DPM Work Phone: [facility] 04-30-2025 16:13-0400 Body mass index (BMI) [Ratio] 24.44 kg/m2 Joseph Sepulveda DPM Work Phone: [facility] 04-30-2025 16:13-0400 Body weight 54.88 kg Joseph Mu DPM Work Phone: [facility] 04-30-2025 16:13-0400 Respiratory rate 18 /min Joseph Brown DPM Work Phone: [facility] 02-23-2025 15:07-0400 Body mass index (BMI) [Ratio] 26.26 kg/m2 Cristiana Chapa MACHINE [employer] Work Phone: [facility] 02-23-2025 15:07-0400 Body weight 58.97 kg Cristiana Chapa MACHINE [employer] Work Phone: [facility] 02-23-2025 15:07-0400 Diastolic blood pressure 60 mm[Hg] Cristiana Chapa MACHINE [employer] Work Phone: [facility] 02-23-2025 15:07-0400 Heart rate 69 /min Cristiana Chapa MACHINE [employer] Work Phone: [facility] 02-23-2025 15:07-0400 Systolic blood pressure 122 mm[Hg] Cristiana Chapa MACHINE [employer] Work Phone: [facility] 02-12-2025 10:31-0400 Body height 149.9 cm Joseph Sepulveda DPM Work Phone: [facility] 02-12-2025 10:31-0400 Body mass index (BMI) [Ratio] 24.44 kg/m2 Joseph Sepulveda DPM Work Phone: [facility] 02-12-2025 10:31-0400 Body weight 54.88 kg Joseph Sepulveda DPM Work Phone: [facility] 02-12-2025 10:31-0400 Respiratory rate 18 /min Joseph Sepulveda DPM Work Phone: [facility] 01-23-2025 15:02-0400 Body temperature 97.9 [degF] Jazmin [...] [facility] 01-21-2025 13:38-0400 Body height 149.86 cm [facility] 01-21-2025 13:38-0400 Body mass index (BMI) [Ratio] 26.5 kg/m2 [facility] 01-21-2025 13:38-0400 Body weight 59.59 kg [facility] 01-21-2025 13:38-0400 Diastolic blood pressure 82 mm[Hg] [facility] 01-21-2025 13:38-0400 Heart rate 116 /min [facility] 01-21-2025 13:38-0400 Respiratory rate 12 /min [facility] 01-21-2025 13:38-0400 SaO2% (BldA) [Mass fraction] 95 % [facility] 01-21-2025 13:38-0400 Systolic blood pressure 135 mm[Hg] [facility] 01-09-2025 14:29-0400 Body height 149.86 cm [facility] 01-09-2025 14:29-0400 Body mass index (BMI) [Ratio] 25.9 kg/m2 [facility] 01-09-2025 14:29-0400 Body weight 58.17 kg [facility] 01-09-2025 14:29-0400 Diastolic blood pressure 82 mm[Hg] [facility] 01-09-2025 14:29-0400 Heart rate 73 /min [facility] 01-09-2025 14:29-0400 Respiratory rate 12 /min [facility] 01-09-2025 14:29-0400 SaO2% (BldA) [Mass fraction] 97 % [facility] 01-09-2025 14:29-0400 Systolic blood pressure 132 mm[Hg] [facility] 12-08-2024 11:14-0400 Diastolic blood pressure 52 mm[Hg] Nigel El MD Work Phone: [facility] 12-08-2024 11:14-0400 Heart rate 95 /min Nigel El MD Work Phone: [facility] 12-08-2024 11:14-0400 Respiratory rate 18 /min Nigel El MD Work Phone: [facility] 12-08-2024 11:14-0400 SaO2% (BldA) [Mass fraction] 95 % Nigel El MD Work Phone: [facility] 12-08-2024 11:14-0400 Systolic blood pressure 126 mm[Hg] Nigel El MD Work Phone: [facility] 12-08-2024 10:52-0400 Body temperature 97.7 [degF] Nigel El MD Work Phone: [facility] 10-23-2024 11:28-0500 Body height 149.9 cm Maxwell Medrano MD Work Phone: [facility] 10-23-2024 11:28-0500 Body mass index (BMI) [Ratio] 27.59 kg/m2 Maxwell Medrano MD Work Phone: [facility] 10-23-2024 11:28-0500 Body weight 61.96 kg Maxwell Medrano MD Work Phone: [facility] 10-23-2024 11:28-0500 Diastolic blood pressure 60 mm[Hg] Maxwell Medrano MD Work Phone: [facility] 10-23-2024 11:28-0500 Heart rate 71 /min Maxwell Medrano MD Work Phone: [facility] 10-23-2024 11:28-0500 Systolic blood pressure 120 mm[Hg] Maxwell Medrano MD Work Phone: [facility] 10-06-2024 15:27-0500 Body height 149.86 cm [...] 149.9 cm Debbie Mac MD Work Phone: [facility] 09-05-2024 11:19-0500 Body mass index (BMI) [Ratio] 28.48 kg/m2 Debbie Mac MD Work Phone: [facility] 09-05-2024 11:19-0500 Body weight 63.96 kg Debbie Mac MD Work Phone: [facility] 09-05-2024 11:19-0500 Diastolic blood pressure 80 mm[Hg] Debbie Mac MD Work Phone: [facility] 09-05-2024 11:19-0500 Heart rate 112 /min Debbie Mac MD Work Phone: [facility] 09-05-2024 11:19-0500 Systolic blood pressure 112 mm[Hg] Debbie Mac MD Work Phone: [facility] 08-27-2024 14:09-0500 Body height 149.86 cm [...] 152.4 cm Maxwell Medrano MD Work Phone: [facility] 07-28-2024 11:58-0500 Body mass index (BMI) [Ratio] 28.16 kg/m2 Maxwell Medrano MD Work Phone: [facility] 07-28-2024 11:58-0500 Body weight 65.41 kg Maxwell Medrano MD Work Phone: [facility] 07-28-2024 11:58-0500 Diastolic blood pressure 74 mm[Hg] Maxwell Medrano MD Work Phone: [facility] 07-28-2024 11:58-0500 Heart rate 84 /min Maxwell Medrano MD Work Phone: [facility] 07-28-2024 11:58-0500 Systolic blood pressure 112 mm[Hg] Maxwell Medrano MD Work Phone: [facility] 07-24-2024 08:08-0500 Diastolic blood pressure 67 [...] Systolic blood pressure 149 mm[Hg] DO Jazmin Ball Work Phone: [facility] 06-05-2024 12:58-0400 Body height 152.4 cm Maxwell Medrano MD Work Phone: [facility] 06-05-2024 12:58-0400 Body mass index (BMI) [Ratio] 28.63 kg/m2 Maxwell Medrano MD Work Phone: [facility] 06-05-2024 12:58-0400 Body weight 66.5 kg Maxwell Medrano MD Work Phone: [facility] 06-05-2024 12:58-0400 Diastolic blood pressure 64 mm[Hg] Maxwell Medrano MD Work Phone: [facility] 06-05-2024 12:58-0400 Systolic blood pressure 126 mm[Hg] Maxwell Medrano MD Work Phone: [facility] 05-29-2024 13:46-0400 Diastolic blood pressure 64 mm[Hg] Katie Yung MD Work Phone: [facility] 05-29-2024 13:46-0400 Heart rate 93 /min Katie Yung MD Work Phone: [facility] 05-29-2024 13:46-0400 Respiratory rate 17 /min Katie Yung MD Work Phone: [facility] 05-29-2024 13:46-0400 SaO2% (BldA) [Mass fraction] 100 % Katie Yung MD Work Phone: [facility] 05-29-2024 13:46-0400 Systolic blood pressure 119 mm[Hg] Katie Yung MD Work Phone: [facility] 05-29-2024 13:20-0400 Body temperature 96.49 [degF] Katie Yung MD Work Phone: [facility] 05-19-2024 09:24-0400 Body height 149.86 cm DO [...] (BldA) [Mass fraction] 96 % DO Jazmin العلي Work Phone: [facility] 05-08-2024 11:58-0400 Systolic blood pressure 134 mm[Hg] DO Jazmin Ball Work Phone: [facility] 04-28-2024 11:55-0400 Body height 152.4 cm Maxwell Medrano MD Work Phone: [facility] 04-28-2024 11:55-0400 Diastolic blood pressure 70 mm[Hg] Maxwell Medrano MD Work Phone: [facility] 04-28-2024 11:55-0400 Heart rate 88 /min Maxwell Medrano MD Work Phone: [facility] 04-28-2024 11:55-0400 Systolic blood pressure 110 mm[Hg] Maxwell Medrano MD Work Phone: [facility] 04-24-2024 15:33-0400 Body height 152.4 cm Debbie Mac MD Work Phone: [facility] 04-24-2024 15:33-0400 Body mass index (BMI) [Ratio] 28.32 kg/m2 Debbie Mac MD Work Phone: [facility] 04-24-2024 15:33-0400 Body weight 65.77 kg Debbie Mac MD Work Phone: [facility] 04-24-2024 15:33-0400 Diastolic blood pressure 80 mm[Hg] Debbie Mac MD Work Phone: [facility] 04-24-2024 15:33-0400 Heart rate 114 /min Debbie Mac MD Work Phone: [facility] 04-24-2024 15:33-0400 Systolic blood pressure 112 mm[Hg] Debbie Mac MD Work Phone: [facility] 04-18-2024 10:09-0400 Body height 149.86 cm DO Jazmin Ball Work Phone: [facility] 04-18-2024 10:09-0400 Body mass index (BMI) [Ratio] 28.8 kg/m2 DO Jazmin Ball Work Phone: [facility] 04-18-2024 10:09-0400 Body weight 64.86 kg DO Jazmin Ball Work Phone: [facility] 04-18-2024 10:09-0400 Diastolic blood pressure 77 mm[Hg] DO Jazmin Ball Work Phone: [facility] 04-18-2024 10:09-0400 Heart rate 75 /min DO Jazmin Ball Work Phone: [facility] 04-18-2024 10:09-0400 Systolic blood pressure 143 mm[Hg] DO Jazmin Ball Work Phone: [facility] 04-17-2024 10:43-0400 Body height 152.4 cm Maxwell Medrano MD Work Phone: [facility] 04-17-2024 10:43-0400 Body mass index (BMI) [Ratio] 28.59 kg/m2 Maxwell Medrano MD Work Phone: [facility] 04-17-2024 10:43-0400 Body weight 66.41 kg Maxwell Medrano MD Work Phone: [facility] 04-17-2024 10:43-0400 Diastolic blood pressure 62 mm[Hg] Maxwell Medrano MD Work Phone: [facility] 04-17-2024 10:43-0400 Heart rate 88 /min Maxwell Medrano MD Work Phone: [facility] 04-17-2024 10:43-0400 Systolic blood pressure 96 mm[Hg] Maxwell Medrano MD Work Phone: [facility] 04-08-2024 16:12-0400 Body height 149.86 cm [...] 149.9 cm Maxwell Medrano MD Work Phone: [facility] 02-28-2024 11:47-0400 Body mass index (BMI) [Ratio] 30.7 kg/m2 Maxwell Medrano MD Work Phone: [facility] 02-28-2024 11:47-0400 Body weight 68.95 kg Maxwell Medrano MD Work Phone: [facility] 02-28-2024 11:47-0400 Diastolic blood pressure 78 mm[Hg] Maxwell Medrano MD Work Phone: [facility] 02-28-2024 11:47-0400 Heart rate 95 /min Maxwell Medrano MD Work Phone: [facility] 02-28-2024 11:47-0400 Systolic blood pressure 110 mm[Hg] Maxwell Medrano MD Work Phone: [facility] 02-25-2024 14:27-0400 Body mass index (BMI) [Ratio] 30.86 kg/m2 Debbie Mac MD Work Phone: [facility] 02-25-2024 14:27-0400 Body weight 69.31 kg Debbie Mac MD Work Phone: [facility] 02-25-2024 14:27-0400 Diastolic blood pressure 80 mm[Hg] Debbie Mac MD Work Phone: [facility] 02-25-2024 14:27-0400 Heart rate 87 /min Debbie Mac MD Work Phone: [facility] 02-25-2024 14:27-0400 Systolic blood pressure 118 mm[Hg] Debbie Mac MD Work Phone: [facility] 02-15-2024 08:46-0400 Body height 149.86 cm [...] [facility] 01-22-2024 12:46-0400 Body height 149.9 cm [facility] 01-22-2024 12:46-0400 Body mass index (BMI) [Ratio] 30.9 kg/m2 [facility] 01-22-2024 12:46-0400 Body weight 69.4 kg [facility] 01-22-2024 12:46-0400 Diastolic blood pressure 94 mm[Hg] [facility] 01-22-2024 12:46-0400 Heart rate 71 /min [facility] 01-22-2024 12:46-0400 Systolic blood pressure 134 mm[Hg] [facility] 01-20-2024 12:00-0400 Diastolic blood pressure 86 [...] [facility] 01-18-2024 15:05-0400 Body height 149.86 cm DO Jazmin Ball Work Phone: [facility] 01-18-2024 15:05-0400 Body temperature 97.8 [degF] DO Jazmin Ball Work Phone: [facility] 01-18-2024 15:05-0400 Body weight 69.9 kg DO Jazmin Ball Work Phone: [facility] 11-27-2023 15:07-0400 Body height 160.02 cm DO Jazmin Ball [...] 149.9 cm Debbie Mac MD Work Phone: [facility] 09-19-2023 13:07-0500 Body mass index (BMI) [Ratio] 33.2 kg/m2 Debbie Mac MD Work Phone: [facility] 09-19-2023 13:07-0500 Body weight 74.57 kg Debbie Mac MD Work Phone: [facility] 09-19-2023 13:07-0500 Diastolic blood pressure 92 mm[Hg] Debbie Mac MD Work Phone: [facility] 09-19-2023 13:07-0500 Heart rate 91 /min Debbie Mac MD Work Phone: [facility] 09-19-2023 13:07-0500 Systolic blood pressure 126 mm[Hg] Debbie Mac MD Work Phone: [facility] 08-21-2023 13:27-0500 Body height 149.[address] 08-21-2023 13:27-0500 Body mass index (BMI) [Ratio] 33.33 kg/m2 [address] 08-21-2023 13:27-0500 Body weight 74.[address] 08-21-2023 13:27-0500 Diastolic blood pressure 64 mm[Hg] [address] 08-21-2023 13:27-0500 Systolic blood pressure 116 mm[Hg] [address] 08-19-2023 12:15-0500 Body height 160.02 cm Negin Garcia Other [employer] [employer] Other 05-31-2023 15:24-0400 Body height 149.9 cm Debbie Mac MD Work Phone: [facility] 05-31-2023 15:24-0400 Body mass index (BMI) [Ratio] 33.33 kg/m2 Debbie Mac MD Work Phone: [facility] 05-31-2023 15:24-0400 Body weight 74.84 kg Debbie Mac MD Work Phone: [facility] 05-31-2023 15:24-0400 Diastolic blood pressure 64 mm[Hg] Debbie Mac MD Work Phone: [facility] 05-31-2023 15:24-0400 Heart rate 70 /min Debbie Mac MD Work Phone: [facility] 05-31-2023 15:24-0400 Systolic blood pressure 122 mm[Hg] Debbie Mac MD Work Phone: [facility] 03-21-2023 15:00-0400 Body height 160.02 cm Jazmin Ball Other [facility] [employer] Other 03-21-2023 15:00-0400 Body mass index (BMI) [Ratio] 28.62 kg/m2 Jazmin Ball Other [employer] Other 03-21-2023 15:00-0400 Body weight 73.3 kg Jazmin Ball Other [employer] Other 03-21-2023 15:00-0400 Diastolic blood pressure 79 mm[Hg] Jazmin Ball Other [employer] Other 03-21-2023 15:00-0400 Respiratory rate 12 /min Jazmin Ball Other [employer] Other 03-21-2023 15:00-0400 Systolic blood pressure 124 mm[Hg] Jazmin Ball Other [employer] Other 03-05-2023 14:42-0400 Diastolic blood pressure 76 [...] 149.86 cm Jazmin E Ball Work Phone: [facility] Work Phone: 01-25-2023 13:09-0400 Body mass index (BMI) [Ratio] 32.52 kg/m2 Jazmin E Ball Work Phone: [facility] Work Phone: 01-25-2023 13:09-0400 Body surface area Derived from formula 1.68 m2 Jazmin E Ball Work Phone: [facility] Work Phone: 01-25-2023 13:09-0400 Body weight 73.03 kg Jazmin E Ball Work Phone: [facility] Work Phone: 01-25-2023 13:09-0400 Diastolic blood pressure 78 mm[Hg] Jazmin E Ball Work Phone: [facility] Work Phone: 01-25-2023 13:09-0400 Heart rate 72 /min Jazmin E Ball Work Phone: [facility] Work Phone: 01-25-2023 13:09-0400 Systolic blood pressure 126 mm[Hg] Jazmin E Ball Work Phone: [facility] Work Phone: 01-09-2023 17:07-0400 Diastolic [...] 149.86 cm Jazmin E Ball Work Phone: [facility] Work Phone: 01-04-2023 14:23-0400 Body mass index (BMI) [Ratio] 32.52 kg/m2 Jazmin E Ball Work Phone: [facility] Work Phone: 01-04-2023 14:23-0400 Body surface area Derived from formula 1.68 m2 Jazmin E Ball Work Phone: [facility] Work Phone: 01-04-2023 14:23-0400 Body weight 73.03 kg Jazmin E Ball Work Phone: [facility] Work Phone: 01-04-2023 14:23-0400 Diastolic blood pressure 88 mm[Hg] Jazmin E Ball Work Phone: [facility] Work Phone: 01-04-2023 14:23-0400 Heart rate 76 /min Jazmin E Ball Work Phone: [facility] Work Phone: 01-04-2023 14:23-0400 Systolic blood pressure 128 mm[Hg] Jazmin E Ball Work Phone: [facility] Work Phone: 01-03-2023 14:05-0400 Body height 149.86 cm Jazmin E Ball Work Phone: [facility] Work Phone: 01-03-2023 14:05-0400 Body mass index (BMI) [Ratio] 33.12 kg/m2 Jazmin E Ball Work Phone: [facility] Work Phone: 01-03-2023 14:05-0400 Body surface area Derived from formula 1.69 m2 Jazmin E Ball Work Phone: [facility] Work Phone: 01-03-2023 14:05-0400 Body weight 74.39 kg Jazmin E Ball Work Phone: [facility] Work Phone: 01-03-2023 14:05-0400 Diastolic blood pressure 62 mm[Hg] Jazmin E Ball Work Phone: [facility] Work Phone: 01-03-2023 14:05-0400 Heart rate 70 /min Jazmin E Ball Work Phone: [facility] Work Phone: 01-03-2023 14:05-0400 Systolic blood pressure 118 mm[Hg] Jazmin E Ball Work Phone: [facility] Work Phone: 12-25-2022 13:41-0400 Diastolic blood pressure 84 mm[Hg] Jazmin E Ball Work Phone: [facility] Work Phone: 12-25-2022 13:41-0400 Heart rate 107 /min Jazmin E Ball Work Phone: [facility] Work Phone: 12-25-2022 13:41-0400 Respiratory rate 16 /min Jazmin E Ball Work Phone: [facility]rm[facility] Work Phone: 12-25-2022 13:41-0400 SaO2% (BldA) [Mass fraction] 96 % Jazmin E Ball Work Phone: [facility] Work Phone: 12-25-2022 13:41-0400 Systolic blood pressure 132 mm[Hg] Jazmin E Ball Work Phone: [facility]Spjzdkpqdr[facility]Jxbalc Work Phone: 11-27-2022 09:24-0400 Body height 149.86 [...] Body height 160.02 cm Rachel Larios Other [facility] [employer] Other 10-24-2022 14:30-0500 Body mass index (BMI) [Ratio] 28.16 kg/m2 Rachel Larios Other [facility] [employer] Other 10-24-2022 14:30-0500 Body weight 72.12 kg Rachel Larios Other [facility] [employer] Other 10-24-2022 14:30-0500 Diastolic blood pressure 98 mm[Hg] Rachel Larios Other [facility] [employer] Other 10-24-2022 14:30-0500 SaO2% (BldA) [Mass fraction] 97 % Rachel Larios Other [facility] [employer] Other 10-24-2022 14:30-0500 Systolic blood pressure 152 mm[Hg] Rachel Larios Other [facility] [employer] Other 10-13-2022 10:48-0500 Body height 149.86 cm Jazmin E Ball Work Phone: [facility] 250 DO Work Phone: 10-13-2022 10:48-0500 Body mass index (BMI) [Ratio] 32.11 kg/m2 Jazmin E Ball Work Phone: [facility] [address] DO Work Phone: 10-13-2022 10:48-0500 Body surface area Derived from formula 1.67 m2 Jazmin E Ball Work Phone: [facility] 250 DO Work Phone: 10-13-2022 10:48-0500 Body weight 72.12 kg Jazmin E Ball Work Phone: [facility] [address] DO Work Phone: 10-13-2022 10:48-0500 Diastolic blood pressure 66 mm[Hg] Jazmin E Ball Work Phone: [facility] 250 DO Work Phone: 10-13-2022 10:48-0500 Heart rate 72 /min Jazmin E Ball Work Phone: [facility] 250 DO Work Phone: 10-13-2022 10:48-0500 Systolic blood pressure 98 mm[Hg] Jazmin Hahn Ball Work Phone: [facility] 250 DO Work Phone: 09-27-2022 13:36-0500 Body height 149.86 cm Jazmin E Ball Work Phone: [facility] 250 DO Work Phone: 09-27-2022 13:36-0500 Body mass index (BMI) [Ratio] 31.91 kg/m2 Jazmin Hahn Ball Work Phone: [facility] 250 DO Work Phone: 09-27-2022 13:36-0500 Body surface area Derived from formula 1.67 m2 Jazmin E Ball Work Phone: [facility] 250 DO Work Phone: 09-27-2022 13:36-0500 Body weight 71.67 kg Jazmin E Ball Work Phone: [facility] 250 DO Work Phone: 09-27-2022 13:36-0500 Diastolic blood pressure 86 mm[Hg] Jazmin E Ball Work Phone: [facility] [address] DO Work Phone: 09-27-2022 13:36-0500 Heart rate 70 /min Jazmin E Ball Work Phone: [facility] 250 DO Work Phone: 09-27-2022 13:36-0500 Systolic blood pressure 122 mm[Hg] Jazmin E Ball Work Phone: [facility] [address] DO Work Phone: 09-21-2022 16:34-0500 Body [...] height 160.02 cm Jazmin Ball Other [facility] [employer] Other 09-12-2022 16:00-0500 Body mass index (BMI) [Ratio] 28.02 kg/m2 Jazmin Ball Other [facility] [employer] Other 09-12-2022 16:00-0500 Body weight 71.76 kg Jazmin Ball Other [employer] [facility] [employer] Other 09-12-2022 16:00-0500 Diastolic blood pressure 76 mm[Hg] Jazmin Ball Other [employer] Other 09-12-2022 16:00-0500 Respiratory rate 12 /min Jazmin Ball Other [employer] Other 09-12-2022 16:00-0500 SaO2% (BldA) [Mass fraction] 97 % Jazmin Ball Other [facility] [employer] Other 09-12-2022 16:00-0500 Systolic blood pressure 132 mm[Hg] Jazmin Ball Other [facility] [employer] Other 09-06-2022 07:32-0500 Body temperature 97 [degF] [...] [facility] 09-04-2022 12:21-0500 40 1 Jzamin E Ball Work Phone: [facility] [address] DO Work Phone: Comment on above: [id number] 09-01-2022 22:47-0500 Diastolic blood pressure 85 mm[Hg] [...] 08-24-2022 10:03-0500 Body height 149.86 cm Jazmin E Ball Work Phone: [facility] 250 DO Work Phone: 08-24-2022 10:03-0500 Body mass index (BMI) [Ratio] 32.92 kg/m2 Jazmin E Ball Work Phone: [facility] 250 DO Work Phone: 08-24-2022 10:03-0500 Body surface area Derived from formula 1.69 m2 Jazmin E Ball Work Phone: [facility] 250 DO Work Phone: 08-24-2022 10:03-0500 Body weight 73.94 kg Jazmin E Ball Work Phone: [facility] [address] DO Work Phone: 08-24-2022 10:03-0500 Diastolic blood pressure 98 mm[Hg] Jazmin E Ball Work Phone: [facility] 250 DO Work Phone: 08-24-2022 10:03-0500 Heart rate 112 /min Jazmin E Ball Work Phone: [facility] 250 DO Work Phone: 08-24-2022 10:03-0500 Systolic blood pressure 132 mm[Hg] Jazmin E Ball Work Phone: [facility] 250 DO Work Phone: 06-26-2022 14:26-0500 Body height 149.86 cm Jazmin E Ball Work Phone: [facility] 250 DO Work Phone: 06-26-2022 14:26-0500 Body mass index (BMI) [Ratio] 32.92 kg/m2 Jazmin E Ball Work Phone: [facility] 250 DO Work Phone: 06-26-2022 14:26-0500 Body surface area Derived from formula 1.69 m2 Jazmin E Ball Work Phone: [facility] 250 DO Work Phone: 06-26-2022 14:26-0500 Body weight 73.94 kg Jazmin E Ball Work Phone: [facility] 250 DO Work Phone: 06-26-2022 14:26-0500 Diastolic blood pressure 70 mm[Hg] Jazmin E Ball Work Phone: [facility] 250 DO Work Phone: 06-26-2022 14:26-0500 Heart rate 71 /min Jazmin E Ball Work Phone: [facility] 250 DO Work Phone: 06-26-2022 14:26-0500 Systolic blood pressure 132 mm[Hg] Jazmin E Ball Work Phone: [facility] [address] [address] DO Work Phone: 04-27-2022 14:30-0400 Body height 160.02 cm John Mims Other [facility] [employer] Other 04-27-2022 14:30-0400 Body mass index (BMI) [Ratio] 27.45 kg/m2 John Mims Other [facility] [employer] Other 04-27-2022 14:30-0400 Body weight 70.31 kg John Mims Other [facility] [employer] Other 03-10-2022 10:53-0400 Diastolic blood pressure 82 mm[Hg] Jazmin Hahn Ball Work Phone: [facility] [address] DO Work Phone: 03-10-2022 10:53-0400 Systolic blood pressure 126 mm[Hg] Jazmin Hahn Ball Work Phone: [facility] [address] [address] [address] DO Work Phone: 03-10-2022 10:19-0400 Body height 149.86 cm Jazmin Hahn Ball Work Phone: [facility] [address] [address] DO Work Phone: 03-10-2022 10:19-0400 Body mass index (BMI) [Ratio] 31.91 kg/m2 Jazmin Hahn Ball Work Phone: [facility] [address] [address] [address] DO Work Phone: 03-10-2022 10:19-0400 Body surface area Derived from formula 1.67 m2 Jazmin Hahn Ball Work Phone: [facility] 250 DO Work Phone: 03-10-2022 10:19-0400 Body weight 71.67 kg Jazmin Hahn Ball Work Phone: [facility] 250 DO Work Phone: 03-10-2022 10:19-0400 Diastolic blood pressure 80 mm[Hg] Jazmin E Ball Work Phone: [facility] [address] [address] DO Work Phone: 03-10-2022 10:19-0400 Heart rate 78 /min Jazmin E Ball Work Phone: [facility] [address] [address] DO Work Phone: 03-10-2022 10:19-0400 Systolic blood pressure 146 mm[Hg] Jazmin E Ball Work Phone: [facility] 250 DO Work Phone: 02-28-2022 15:45-0400 Body height 160.02 cm John Jade Other [facility] [employer] Other 02-28-2022 15:45-0400 Body mass index (BMI) [Ratio] 27.45 kg/m2 John Jade Other [facility] [employer] Other 02-28-2022 15:45-0400 Body weight 70.31 kg John Jade Other [facility] [employer] Other 02-28-2022 15:32-0400 Body weight 0 kg DO Jazmin Ball Work Phone: [facility] 12-15-2021 08:46-0400 Body weight 0 kg DO Jazmin Ball Work Phone: [facility] 10-19-2021 16:04-0500 Body height 149.86 cm Jazmin E Ball Work Phone: [facility] [address] [address] DO Work Phone: 10-19-2021 16:04-0500 Body mass index (BMI) [Ratio] 29.13 kg/m2 Jazmin E Ball Work Phone: [facility] 250 DO Work Phone: 10-19-2021 16:04-0500 Body surface area Derived from formula 1.6 m2 Jazmin E Ball Work Phone: [facility] 250 DO Work Phone: 10-19-2021 16:04-0500 Body weight 65.41 kg Jazmin E Ball Work Phone: [facility] DO Work Phone: 10-19-2021 16:04-0500 Diastolic blood pressure 76 mm[Hg] Jazmin E Ball Work Phone: [facility] 250 DO Work Phone: 10-19-2021 16:04-0500 Heart rate 70 /min Jazmin E Ball Work Phone: [facility] 250 DO Work Phone: 10-19-2021 16:04-0500 Systolic blood pressure 110 mm[Hg] Jazmin E Ball Work Phone: [facility] 250 DO Work Phone: 07-26-2021 14:31-0500 Body height 149.86 cm Jazmin E Ball Work Phone: [facility] 250 DO Work Phone: 07-26-2021 14:31-0500 Body mass index (BMI) [Ratio] 29.49 kg/m2 Jazmin E Ball Work Phone: [facility] 250 DO Work Phone: 07-26-2021 14:31-0500 Body surface area Derived from formula 1.61 m2 Jazmin E Ball Work Phone: [facility] 250 DO Work Phone: 07-26-2021 14:31-0500 Body weight 66.23 kg Jazmin E Ball Work Phone: [facility] 250 DO Work Phone: 07-26-2021 14:31-0500 Diastolic blood pressure 80 mm[Hg] Jazmin E Ball Work Phone: [facility] 250 DO Work Phone: 07-26-2021 14:31-0500 Heart rate 70 /min Jazmin Hahn Ball Work Phone: [facility] 250 DO Work Phone: 07-26-2021 14:31-0500 Systolic blood pressure 124 mm[Hg] Jazmin Hahn Ball Work Phone: [facility] 250 DO Work Phone: 07-06-2021 15:54-0500 Body height 149.86 cm Jazmin Hahn Ball Work Phone: [facility] 250 DO Work Phone: 07-06-2021 15:54-0500 Body mass index (BMI) [Ratio] 28.48 kg/m2 Jazmin Hahn Ball Work Phone: [facility] 250 DO Work Phone: 07-06-2021 15:54-0500 Body surface area Derived from formula 1.59 m2 Jazmin Hahn Ball Work Phone: [facility] 250 DO Work Phone: 07-06-2021 15:54-0500 Body temperature 97.2 [degF] Jazmin Hahn Ball Work Phone: [facility] 250 DO Work Phone: 07-06-2021 15:54-0500 Body weight 63.96 kg Jazmin E Ball Work Phone: [facility] 250 DO Work Phone: 07-06-2021 15:54-0500 Diastolic blood pressure 49 mm[Hg] Jazmin Hahn Ball Work Phone: [facility] [employer] 250 DO Work Phone: 07-06-2021 15:54-0500 Heart rate 73 /min Jazmin E Ball Work Phone: [facility] 250 DO Work Phone: 07-06-2021 15:54-0500 Systolic blood pressure 95 mm[Hg] Jazmin Hahn Ball Work Phone: [facility] 250 DO Work Phone: 06-30-2021 00:00-0500 0 1 Jazmin Hahn Ball Work Phone: [facility] 250 DO Work Phone: Comment on above: [id number] 06-06-2021 15:33-0400 Body height 152.4 cm Jazmin Hahn Ball Work Phone: [facility] 250 DO Work Phone: 06-06-2021 15:33-0400 Body mass index (BMI) [Ratio] 28.12 kg/m2 Jazmin Hahn Ball Work Phone: [facility] 250 DO Work Phone: 06-06-2021 15:33-0400 Body surface area Derived from formula 1.62 m2 Jazmin Hahn Ball Work Phone: [facility] 250 DO Work Phone: 06-06-2021 15:33-0400 Body weight 65.32 kg Jazmin E Ball Work Phone: [facility] DO Work Phone: 06-06-2021 15:33-0400 Diastolic blood pressure 64 mm[Hg] Jazmin E Ball Work Phone: [facility] DO Work Phone: 06-06-2021 15:33-0400 Heart rate 110 /min Jazmin العلي Work Phone: [facility] 250 DO Work Phone: 06-06-2021 15:33-0400 Systolic blood pressure 88 mm[Hg] Jazmin العلي Work Phone: [facility] 250 DO Work Phone: Encounters Encounter Date Encounter Type Care Provider Facility Start: 05-19-2025 End: 05-19-2025 Subsequent hospital visit by physician Chanell [facility] Comment on above: Pacemaker; Sick sinus syndrome (Multi) Start: 05-18-2025 End: 05-18-2025 ambulatory Jazmin العلي DO Work Phone: [facility] Work Phone: Start: 05-18-2025 End: 05-18-2025 Patient encounter procedure Jazmin العلي DO -[facility] Work Phone: Start: 05-07-2025 End: 05-07-2025 Office outpatient visit 15 minutes Joseph Sepulveda DPM Work Phone: [facility] Comment on above: Cellulitis of left f oot (Primary Dx); Acquired deformity of left toe; Acquired deformity of right toe; Exostosis of left foot Start: 05-07-2025 End: 05-07-2025 ambulatory JOSEPH SEPULVEDA Not Available Start: 05-07-2025 End: 05-07-2025 Bamboo flowsheet Joseph Sepulveda DPM Work Phone: [facility] Start: 05-07-2025 End: 05-07-2025 Bamboo flowsheet Joseph Sepulveda DPM Work Phone: [facility] Start: 05-05-2025 Non-patient / Non-visit Sasha Hoyos CMA -[facility] Work Phone: Start: 05-05-2025 Non-patient / Non-visit Maxwell treadwell MD -[facility] Work Phone: Start: 05-04-2025 End: 05-04-2025 ambulatory Jazmin العلي DO Work Phone: [facility] Work Phone: Start: 05-04-2025 End: 05-04-2025 Departed Referred Maxwell Basurto MD -[facility] Start: 05-04-2025 Non-patient / Non-visit Maxwell treadwell MD -[facility] Work Phone: Start: 05-03-2025 Non-patient / Non-visit Juanito Varela DO -[facility] Work Phone: Start: 05-01-2025 End: 05-01-2025 ambulatory [facility] Start: 05-01-2025 End: 05-01-2025 Encounter for other preprocedural examination [facility] Start: 05-01-2025 End: 05-01-2025 Patient encounter status [address] Start: 05-01-2025 End: 05-01-2025 Subsequent hospital visit by physician Chanell [id number] Comment on above: Pre-op testing Start: 04-30-2025 End: 04-30-2025 ambulatory JOSEPH SEPULVEDA Not Available Start: 04-30-2025 End: 04-30-2025 Office outpatient visit 15 minutes Josehp Sepulveda DPM Work Phone: [facility] Comment on above: Cellulitis of left f oot (Primary Dx); Pain due to onychomycosis of toenails of both feet; Acquired deformity of left toe; Acquired deformity of right toe; Foot ulcer, left, with fat layer exposed (HCC) Start: 04-30-2025 End: 04-30-2025 Bamboo flowsheet Joseph Sepulveda DPM Work Phone: [facility] Start: 04-30-2025 End: 04-30-2025 Bamboo flowsheet Joseph Sepulveda DPM Work Phone: [facility] Start: 04-28-2025 End: 04-28-2025 ambulatory JAZMIN العلي [facility] Start: 04-28-2025 End: 04-28-2025 ambulatory [facility]WELL [facility] Start: 03-02-2025 ambulatory [facility] Start: 02-23-2025 End: 02-23-2025 Office outpatient visit 40 minutes Cristiana Meadel [employer] Work Phone: [facility] Comment on above: High risk medication use (Primary Dx); Essential hypertension, benign; Pacemaker; Persistent atrial fibrillation (Multi); Anticoagulated; Shortness of breath Start: 02-23-2025 End: 02-23-2025 amb[address]RISTIANA Rosen [facility] Start: 02-12-2025 End: 02-12-2025 Bamboo flowsheet Joseph Sepulveda DPM Work Phone: [facility] Start: 02-12-2025 End: 02-12-2025 Bamboo flowsheet Joseph Sepulveda DPM Work Phone: [facility] [...] Not Available Start: 01-30-2025 End: 01-30-2025 ambulatory [facility] Start: 01-30-2025 End: 01-30-2025 Subsequent hospital visit by physician Chanell [facility] Comment on above: Pacemaker Start: 01-22-2025 End: 01-23-2025 ambulatory Stephanie Mischler Facility:[facility] Start: 01-22-2025 End: 01-23-2025 Evaluation and management of inpatient Jazmin العلي DO Work Phone: [facility] [place] [facility] Work Phone: Start: 01-22-2025 End: 01-23-2025 observation encounter Jazmin العلي DO Work Phone: [facility] Work Phone: Start: 01-21-2025 End: 01-21-2025 ambulatory [facility] Work Phone: Start: 01-21-2025 End: 01-21-2025 Patient encounter procedure [facility] Work Phone: Start: 01-21-2025 Non-patient / Non-visit [facility] Work Phone: Start: 01-09-2025 End: 01-09-2025 ambulatory [facility] Work Phone: Start: 01-09-2025 End: 01-09-2025 Patient encounter procedure [facility] Work Phone: Start: 01-06-2025 End: 01-06-2025 Telemedicine consultation with patient Nigel El MD Work Phone: [facility] Comment on above: History of repair of hiatal hernia (Primary Dx) Start: 01-06-2025 End: 01-06-2025 ambulatory NIGEL EL Facility:[facility] Start: 12-31-2024 End: 12-31-2024 Telemedicine consultation with patient Nigel El MD Work Phone: [facility] Comment on above: NO SHOW (Primary Dx) Start: 12-31-2024 ambulatory NIGEL EL [facility] ity:[facility] Start: 12-30-2024 End: 12-30-2024 Telemedicine consultation with patient Nigel El MD Work Phone: [facility] General Surgery Comment on above: History of repair of hiatal hernia (Primary Dx); NO SHOW Start: 12-30-2024 ambulatory NIGEL EL [facility] ity:[facility] Start: 12-11-2024 End: 12-11-2024 Telephone encounter Nigel El MD Work Phone: [facility] Start: 12-08-2024 End: 12-08-2024 ambulatory NIGEL EL Facility:[facility] Start: 12-08-2024 End: 12-08-2024 Subsequent hospital visit by physician Nigel El MD Work Phone: [facility] Comment on above: Diaphragmatic hernia without obstruction or gangrene (Primary Dx); Hiatal hernia; Gastroesophageal reflux disease without esophagitis Start: 11-26-2024 End: 11-26-2024 Orders Only Nigel El MD Work Phone: [facility] General Start: 11-25-2024 End: 11-25-2024 ambulatory Bonnie Clarke RN [facility] Line Comment on above: Heartburn Start: 11-21-2024 End: 11-21-2024 Admission to same day surgery center Katie Yung MD Work Phone: [facility] Gastroenterology Start: 11-12-2024 End: 11-14-2024 ambulatory KATIE [facility]UNG [facility] Start: 11-11-2024 End: 11-11-2024 ambulatory [facility] Comment on above: Food getting stuck i n throat; Swallowing problems Start: 10-23-2024 End: 10-23-2024 Office outpatient visit 40 minutes Maxwell Medrano MD Work Phone: [facility] Office Building Comment on above: Pacemaker; Sick sinus syndrome (Multi); Persistent atrial fibrillation (Multi); High risk medication use; 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 (Multi); Essential hypertension, benign; Chronic diastolic heart failure; BMI 27.0-27.9,adult; Never smoked tobacco Start: 10-23-2024 End: 10-23-2024 ambulatory [facility] Ambulatory Start: 10-13-2024 End: 10-13-2024 ambulatory Yesica Astduillo MD Facility: [facility] Start: 10-06-2024 Patient encounter procedure [facility] Start: 10-06-2024 End: 10-06-2024 ambulatory Jazmin Ball DO Work Phone: [facility] Work Phone: Start: 10-06-2024 End: 10-06-2024 Patient encounter procedure Jazmin Ball DO Work Phone: [facility] Work Phone: Start: 10-01-2024 Non-patient / Non-visit Benjam in Ball DO Work Phone: [facility] Professional Co Work Phone: Start: 09-12-2024 End: 09-12-2024 Emergency department patient visit Jazmin Ball DO Work Phone: [facility]-Emergency Room Work Phone: Start: 09-11-2024 End: 09-11-2024 Patient encounter procedure Jazmin Ball DO Work Phone: [facility]-XRay [address] [place] Work Phone: Start: 09-11-2024 End: 09-11-2024 ambulatory Jazmin Ball DO Work Phone: [facility] Work Phone: Start: 09-09-2024 End: 09-09-2024 ambulatory Jazmin Ball DO Work Phone: [facility] Work Phone: Start: 09-09-2024 End: 09-09-2024 Patient encounter procedure Jazmin Ball DO Work Phone: [facility] Work Phone: Start: 09-08-2024 End: 09-08-2024 ambulatory [facility] Start: 09-08-2024 End: 09-08-2024 Subsequent hospital visit by physician Chanell Joseph [facility] Comment on above: Pacemaker; Sick sinus syndrome (Multi) Start: 09-05-2024 End: 09-05-2024 Patient encounter procedure Jazmin العلي DO Work Phone: [facility] Work Phone: Start: 09-05-2024 End: 09-05-2024 ambulatory Jazmin العلي DO Work Phone: [facility] Work Phone: Start: 09-05-2024 End: 09-05-2024 Office outpatient visit 25 minutes Debbie Mac MD Work Phone: [facility] Comment on above: Persistent atrial fi brillation [...] any substance Start: 09-05-2024 End: 09-05-2024 ambulatory [facility] Ambulatory Start: 09-01-2024 End: 09-01-2024 ambulatory Yesica Astudillo MD Facility:[facility] Start: 08-27-2024 End: 08-27-2024 ambulatory Jazmin العلي DO Work Phone: [facility] Work Phone: Start: 08-27-2024 End: 08-27-2024 Patient encounter procedure Jazmin العلي DO Work Phone: [facility] Work Phone: Start: 08-18-2024 End: 08-18-2024 ambulatory KATIE YUNG Facility:[facility] Start: 08-18-2024 End: 08-18-2024 Phys/qhp telephone evaluation 11-20 min Katie Yung MD Work Phone: [facility] Comment on above: Esophageal dysphagia (Primary Dx) Start: 08-04-2024 End: 08-04-2024 ambulatory Yesica Astudillo MD Facility:[facility] Start: 07-31-2024 End: 07-31-2024 Patient encounter procedure Jazmin العلي DO Work Phone: [facility] Work Phone: Start: 07-28-2024 End: 07-28-2024 Office outpatient visit 40 minutes Maxwell Medrano MD Work Phone: [facility] Office Building Comment on above: Pacemaker; Persistent atrial fibrillation (Multi); Essential hypertension, benign; Diastolic heart failure, unspecified HF chronicity; High risk medication use; BMI 28.0-28.9,adult; 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 (Multi); Sinus bradycardia; Never smoked any substance; Anticoagulated Start: 07-28-2024 End: 07-28-2024 ambulatory [facility] Ambulatory Start: 07-23-2024 Non-patient / Non-visit Selamam alon العلي DO Work Phone: [facility] Work Phone: Start: 07-22-2024 End: 07-22-2024 Telemedicine consultation with patient Katie Yung MD Work Phone: [facility] Comment on above: NO SHOW (Primary Dx) Start: 07-22-2024 ambulatory KATIE YUNG Facility: [facility] Start: 07-21-2024 Non-patient / Non-visit Selamam in Tyson MORENO Work Phone: [facility] ER Work Phone: Start: 07-21-2024 End: 07-24-2024 Evaluation and management of inpatient Jazmin العلي DO Work Phone: [facility] [place] [facility] Work Phone: Start: 07-21-2024 End: 07-28-2024 ambulatory Katie Yung MD Work Phone: [facility] Comment on above: Update Start: 07-21-2024 Non-patient / Non-visit Benjam in Ball DO Work Phone: [facility] Work Phone: Start: 07-09-2024 End: 07-09-2024 ambulatory Jazmin Ball DO Work Phone: [facility] Work Phone: Start: 07-09-2024 End: 07-09-2024 Patient encounter procedure Jazmin Ball DO Work Phone: [facility] Work Phone: Start: 07-07-2024 End: 07-07-2024 ambulatory [facility] Ambulatory Start: 07-02-2024 Non-patient / Non-visit Benjam in Ball DO Work Phone: [facility] Work Phone: Start: 07-02-2024 Non-patient / Non-visit Benjam in Ball DO Work Phone: [facility] Start: 07-01-2024 Non-patient / Non-visit Benjam in Ball DO Work Phone: [facility] Start: 06-30-2024 End: 07-03-2024 Evaluation and management of inpatient Jazmin Ball DO Work Phone: [facility] [place] [facility] Work Phone: Start: 06-26-2024 End: 06-26-2024 ambulatory [facility]UNG [facility] Start: 06-26-2024 End: 06-26-2024 Subsequent hospital visit by physician Cassia Ip/Op Flouro 1 [facility] Radiology Department Comment on above: Esophageal dysphagia Start: 06-11-2024 End: 06-23-2024 Telephone encounter Katie Yung MD Work Phone: [facility] Comment on above: Health Information Start: 06-10-2024 End: 06-10-2024 ambulatory DO Jazmin العلي Work Phone: [facility] Work Phone: Start: 06-10-2024 End: 06-10-2024 Patient encounter procedure DO Jazmin العلي Work Phone: [facility] Work Phone: Start: 06-05-2024 End: 06-05-2024 Office outpatient visit 40 minutes Maxwell Medrano MD Work Phone: [facility] Medical Office Building Comment on above: Pacemaker; Persistent atrial fibrillation (Multi); Essential hypertension, benign; Diastolic heart failure, unspecified HF chronicity; High risk medication use; BMI 28.0-28.9,adult; 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 (Multi); Sinus bradycardia; Never smoked any substance Start: 06-05-2024 End: 06-05-2024 ambulatory [facility] Amb[facility] Start: 05-29-2024 End: 05-29-2024 ambulatory KATIE YUNG Facility:[facility] Start: 05-29-2024 End: 05-29-2024 Subsequent hospital visit by physician Katie Yung MD Work Phone: [facility] Comment on above: Esophageal dysphagia (Primary Dx) Start: 05-28-2024 Non-patient / Non-visit DO Johnson العلي Work Phone: [facility] Work Phone: Start: 05-19-2024 End: 05-19-2024 ambulatory DO Jazmin العلي Work Phone: [facility] Work Phone: Start: 05-19-2024 End: 05-19-2024 Patient encounter procedure DO Jazmin العلي Work Phone: [facility] Gastroenter[facility] Work Phone: Start: 05-15-2024 End: 05-15-2024 Orders Only Katie Yung MD Work Phone: [facility] Start: 05-08-2024 End: 05-08-2024 ambulatory DO Jazmin العلي Work Phone: [facility] Work Phone: Start: 05-08-2024 End: 05-08-2024 Patient encounter procedure DO Jazmin العلي Work Phone: [facility] Work Phone: Start: 04-28-2024 End: 04-28-2024 Office outpatient visit 40 minutes Maxwell Medrano MD Work Phone: [facility] Office Building Comment on above: Pacemaker (Primary D x); Persistent atrial fibrillation (Multi); Essential hypertension, benign; Diastolic heart failure, unspecified HF chronicity (Multi); High risk medication use; BMI 28.0-28.9,adult; 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 Work Phone: Start: 04-24-2024 End: 04-24-2024 Patient encounter procedure DO Jazmin العلي Work Phone: [facility]-Lab [address] [place] Work Phone: Start: 04-18-2024 End: 04-18-2024 ambulatory DO Jazmin العلي Work Phone: [facility] Work Phone: Start: 04-18-2024 End: 04-18-2024 Patient encounter procedure DO Jazmin العلي Work Phone: [facility] Gastroenterology Work Phone: Start: 04-17-2024 End: 04-17-2024 Office outpatient visit 40 minutes Maxwell Medrano MD Work Phone: [facility] Office Building Comment on above: High risk medication use (Primary Dx); Pacemaker; Anticoagulation management encounter; Longstanding persistent atrial fibrillation (Multi); Sinus bradycardia; BMI 28.0-28.9,adult; Never smoked any substance Start: 04-08-2024 End: 04-08-2024 ambulatory DO Jazmin العلي Work Phone: [facility] Work Phone: Start: 04-08-2024 End: 04-08-2024 Patient encounter procedure DO Jazmin العلي Work Phone: [facility] Work Phone: Start: 04-07-2024 End: 04-07-2024 ambulatory Yesiac Astudillo MD Facility:[facility] Start: 03-31-2024 Non-patient / Non-visit DO Johnson العلي Work Phone: [facility] Work Phone: Start: 03-21-2024 Evaluation and management of inpatient RICHARDSON BEAULIEU [facility] Start: 03-21-2024 Non-patient / Non-visit DO Johnson persaud Ball Work Phone: [facility] Work Phone: Start: 03-21-2024 Non-patient / Non-visit DO Johnson persaud Ball Work Phone: [facility] Work Phone: Start: 02-28-2024 End: 02-28-2024 Office outpatient visit 40 minutes Maxwell Medrano MD Work Phone: [facility] Comment on above: High risk medication use (Primary Dx); Diastolic heart failure, unspecified HF chronicity (Multi); Abnormal EKG; Anticoagulation management encounter; Longstanding persistent atrial fibrillation (Multi); Sinus bradycardia; Pacemaker; BMI 30.0-30.9,adult; Never smoked tobacco Start: 02-25-2024 End: 02-25-2024 Office outpatient visit 40 minutes Debbie Mac MD Work Phone: [facility] Comment on above: Atrial flutter, unsp ecified [...] 02-18-2024 ambulatory DO Jazmin العلي Work Phone: [facility] Work Phone: Start: 02-18-2024 End: 02-18-2024 Patient encounter procedure DO Jazmin العلي Work Phone: [facility]-CT Scan [place] Work Phone: Start: 02-15-2024 End: 02-15-2024 ambulatory DO Jazmin العلي Work Phone: [facility] Work Phone: Start: 02-15-2024 End: 02-15-2024 Patient encounter procedure DO Jazmin العلي Work Phone: [facility] Work Phone: Start: 02-08-2024 Non-patient / Non-visit DO Johnson العلي Work Phone: [facility] Work Phone: Start: 02-08-2024 Non-patient / Non-visit DO Johnson العلي Work Phone: [facility] Work Phone: Start: 02-07-2024 Non-patient / Non-visit DO Johnson العلي Work Phone: [facility] Out[facility] Work Phone: Start: 02-07-2024 Non-patient / Non-visit DO Johnson العلي Work Phone: [facility] Work Phone: Start: 01-28-2024 End: 01-28-2024 ambulatory DO Jazmin العلي Work Phone: [facility] Work Phone: Start: 01-28-2024 End: 01-28-2024 Patient encounter procedure DO Jazmin العلي Work Phone: [facility] Work Phone: Start: 01-28-2024 End: 01-28-2024 ambulatory Yesica Astudillo MD Facility:[facility] Start: 01-22-2024 End: 01-22-2024 Professional / ancillary services management Chanell Stroud Cardiology Ecg/[facility] Start: 01-21-2024 Non-patient / Non-visit DO Johnson العلي Work Phone: [facility] Work Phone: Start: 01-18-2024 End: 01-20-2024 Evaluation and management of inpatient DO Jazmin العلي Work Phone: [facility] [place] [facility] Work Phone: Start: 12-17-2023 End: 12-17-2023 ambulatory Yesica Astudillo MD Facility:[facility] Start: 11-27-2023 End: 11-27-2023 ambulatory DO Jazmin العلي Work Phone: [facility] Work Phone: Start: 11-27-2023 End: 11-27-2023 Patient encounter procedure DO Jazmin Ball Work Phone: [facility] Work Phone: Start: 11-22-2023 End: 11-22-2023 ambulatory DO Jazmin Ball Work Phone: [facility] Work Phone: Start: 11-22-2023 End: 11-22-2023 Patient encounter procedure DO Jazmin Ball Work Phone: [facility]-Pacemaker Check Start: 11-21-2023 End: 11-21-2023 ambulatory DO Jazmin Ball Work Phone: [facility] Work Phone: Start: 11-21-2023 End: 11-21-2023 Patient encounter procedure DO Jazmin Ball Work Phone: [facility]-MRI [address] [place] Work Phone: Start: 09-24-2023 End: 09-24-2023 ambulatory DO Jazmin Ball Work Phone: [facility] Work Phone: Start: 09-24-2023 End: 09-24-2023 Patient encounter procedure DO Jazmin Ball Work Phone: [facility]-Pacemaker Check Start: 09-19-2023 End: 09-19-2023 Office outpatient visit 25 minutes Debbie Mac MD Work Phone: [facility] Comment on above: Persistent atrial fi brillation (CMS/HCC) (Primary Dx); 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); Chronic diastolic heart failure (CMS/HCC); Essential hypertension, benign; Mixed hyperlipidemia; Pacemaker; Sinus bradycardia; Single vessel coronary artery disease Start: 2023 End: 2023 ambulatory DO Jazmin Ball Work Phone: [facility] Work Phone: Start: 2023 End: 2023 Patient encounter procedure DO Jazmin Ball Work Phone: [facility]-Pacemaker Check Start: 08-24-2023 End: 08-24-2023 ambulatory Jazmin العلي Other [employer] Other Start: 08-24-2023 Telephone encounter Jazmin العلي G [facility] Start: 08-21-2023 End: 08-21-2023 Subsequent hospital visit by physician Chanell Stroud Echo/Vasc Room 2 [facility] Comment on above: Chronic diastolic he art failure (CMS/HCC); Essential hypertension, benign; Dyspnea, unspecified type Start: 08-19-2023 End: 08-19-2023 ambulatory Negin Garcia Other [employer] Other Start: 08-19-2023 Patient encounter procedure Negin Garcia [facility] Start: 08-19-2023 End: 08-19-2023 Patient encounter procedure DO Jazmin العلي Work Phone: [facility] Work Phone: Start: 07-25-2023 End: 07-25-2023 Patient encounter procedure DO Jazmin العلي Work Phone: [facility] Work Phone: Start: 06-29-2023 End: 06-29-2023 ambulatory Jazmin العلي Other [employer] Other Start: 06-29-2023 Nursing evaluation o f patient and report Jazmin العلي [facility] Start: 05-31-2023 End: 05-31-2023 Office outpatient visit 25 minutes Debbie Mac MD Work Phone: [facility] Comment on above: Persistent atrial fi brillation [...] 05-25-2023 End: 05-25-2023 ambulatory Jazmin العلي Other [employer] Other Start: 05-25-2023 Telephone encounter Jazmin SIMMONS [facility] Start: 04-20-2023 Rx Renewal Jazmin Moyer l Work Phone: -[facility] [address] DO Work Phone: Start: 04-18-2023 Rx Renewal Jazmin Moyer l Work Phone: [facility] [address] DO Work Phone: Start: 04-12-2023 End: 04-12-2023 ambulatory Jazmin العلي Other [employer] Other Start: 04-12-2023 Telephone encounter Jazmin SIMMONS [facility] Start: 04-10-2023 End: 04-10-2023 ambulatory Jazmin العلي Other [employer] Other Start: 04-10-2023 Telephone encounter Jazmin SIMMONS G [facility] Start: 03-21-2023 End: 03-21-2023 ambulatory Jazmin العلي Other [employer] Other Start: 03-21-2023 Patient encounter procedure Jazmin العلي [facility] Start: 03-13-2023 End: 03-13-2023 ambulatory Jazmin العلي Other [employer] Other Start: 03-13-2023 Telephone encounter Jazmin SIMMONS [facility] Start: 03-05-2023 Telephone encounter Jazmin SIMMONS [facility] Start: 03-05-2023 End: 03-05-2023 Admission to same day surgery center DO Jazmin [facility]ي [facility] [place] Start: 03-05-2023 End: 03-05-2023 ambulatory DO Jazmin Tyson Work Phone: [facility] Work Phone: Start: 02-26-2023 End: 02-26-2023 ambulatory DO Jazmin العلي Work Phone: [facility] Work Phone: Start: 02-26-2023 End: 02-26-2023 Patient encounter procedure DO Jazmin العلي Work Phone: [facility]-Pre-Surgical Testing Work Phone: Start: 02-26-2023 Rx Renewal Jazmin Hahn Bal l Work Phone: [facility] [address] DO Work Phone: Start: 01-25-2023 Office outpatient vi sit 25 minutes Jazmin العلي Work Phone: [facility] Work Phone: Start: 01-09-2023 End: 01-09-2023 Admission to same day surgery center DO Jazmin Tyson Work Phone: [facility]-[employer] Work Phone: Start: 01-03-2023 End: 01-04-[address] JAZMIN العلي Facility:[facility] Start: 01-02-2023 End: 01-03-[address] JAZMIN العلي Facility:[facility] Start: 12-25-2022 Office outpatient ne w 45 minutes Jazmin العلي Work Phone: [facility] Work Phone: Start: 12-25-[address] Jazmin العلي Facility:[id number] Start: 12-11-2022 End: 12-11-2022 ambulatory DO Jazmin العلي Work Phone: [facility] Work Phone: Start: 12-11-2022 End: 12-11-2022 Patient encounter procedure DO Jazmin العلي Work Phone: [facility]-Pacemaker Check Start: 11-27-2022 Telephone encounter Jazmin العلي [facility] Start: 11-27-2022 End: 11-27-2022 Admission to same day surgery center DO Jazmin Ball Work Phone: [facility]-Surgery Center [place] Start: 11-27-2022 End: 11-27-2022 ambulatory DO Jazmin العلي Work Phone: [place] [employer] Other Start: 11-20-2022 End: 11-20-2022 ambulatory DO Jazmin اعللي Work Phone: [facility] Work Phone: Start: 11-20-2022 End: 11-20-2022 Patient encounter procedure DO Jazmin العلي Work Phone: [facility]-Pre-Surgical Testing Work Phone: Start: 10-30-2022 Telephone encounter Jazmin SIMMONS G [facility] Start: 10-30-2022 End: 10-30-2022 ambulatory DO Jazmin العلي Work Phone: [facility] Work Phone: Start: 10-30-2022 End: 10-30-2022 Patient encounter procedure DO Jazmin العلي Work Phone: [facility]-CT [address] Work Phone: Start: 10-24-2022 End: 10-24-2022 ambulatory Rachel Larios Other [facility] [employer] Other Start: 10-24-2022 Office outpatient vi sit 15 minutes Rachel CRUZ [facility] Start: 10-16-2022 End: 10-17-[address] JAZMIN العلي Facility: Start: 10-13-2022 Office outpatient vi sit 25 minutes Jazmin العلي Work Phone: [facility] [address] DO Work Phone: Start: 10-10-2022 End: 10-10-2022 ambulatory Jazmin العلي Other [place] [employer] Other Start: 10-10-2022 Telephone encounter Jazmin العلي FP [facility] Start: 09-27-2022 Patient encounter procedure Jazmin العلي Work Phone: [facility] [address] DO Work Phone: Start: 09-24-2022 End: 09-24-2022 ambulatory Jazmin العلي Other [employer] Other Start: 09-24-2022 Telephone encounter Jazmin SIMMONS [facility] Start: 09-17-2022 End: 09-21-2022 Evaluation and management of inpatient DO Jazmin العلي Work Phone: [facility] [place] [facility] Work Phone: Start: 09-12-2022 End: 09-12-2022 ambulatory Jazmin العلي Other [place] [employer] Other Start: 09-12-2022 Office outpatient vi sit 25 minutes Jazmin العلي [facility] Start: 09-11-2022 End: 09-11-2022 ambulatory DO Jazmin العلي Work Phone: [facility] Work Phone: Start: 09-11-2022 End: 09-11-2022 Patient encounter procedure DO Jazmin العلي Work Phone: [facility]-Pacemaker Check Start: 09-08-2022 End: 09-08-2022 ambulatory Jazmin العلي Other [facility] [employer] Other Start: 09-08-2022 Telephone encounter Jazmin SIMMONS [facility] Start: 09-01-2022 End: 09-06-2022 Evaluation and management of inpatient DO Jazmin العلي Work Phone: [facility] [place] [facility] Work Phone: Start: 08-25-2022 Telephone encounter Jazmin العلي Work Phone: [facility] DO Work Phone: Start: 08-24-2022 Patient encounter procedure Jazmin العلي Work Phone: [facility] DO Work Phone: Start: 06-26-2022 Office outpatient vi sit 25 minutes Jazmin العلي Work Phone: [facility] DO Work Phone: Start: 06-09-2022 End: 06-09-2022 ambulatory DO Jazmin العلي Work Phone: [facility] Work Phone: Start: 06-09-2022 End: 06-09-2022 Patient encounter procedure DO Jazmin العلي Work Phone: [facility]-Pacemaker Check Start: 05-12-2022 End: 05-13-[address] JAZMIN العلي Facility: Start: 05-01-2022 Adult health examination Jazmin العلي Other [employer] Other Start: 04-27-2022 End: 04-27-2022 ambulatory John Mims Other [place] [employer] Other Start: 04-27-2022 Office outpatient vi sit 25 minutes John Mims [facility] Start: 04-20-2022 End: 04-20-[address] RACHEL LARIOS Facility: Start: 03-27-2022 Rx Renewal Jazmin rosen Work Phone: [facility] [facility] DO Work Phone: Start: 03-16-2022 End: 03-16-2022 ambulatory John Mims Other [employer] Other Start: 03-16-2022 Telephone encounter John Rob ck [facility] Start: 03-10-2022 Office outpatient vi sit 25 minutes Jazmin العلي Work Phone: [facility] DO Work Phone: Start: 03-09-2022 End: 03-09-2022 Patient encounter procedure DO Jazmin Ball [facility] Phone[facility] Start: 03-09-2022 End: 03-09-2022 Patient encounter procedure DO Jazmin Ball Work Phone: [facility]-Pacemaker Check Start: 02-28-2022 End: 02-28-2022 ambulatory John Mims Other [facility] [employer] Other Start: 02-28-2022 Office outpatient vi sit 25 minutes John Mims [facility] Start: 02-16-2022 End: 02-16-2022 Patient encounter procedure DO Jazmin Ball Work Phone: [facility] Start: 01-25-2022 End: 01-26-[address] Wolf MIMS Facility:[facility]1 Start: 01-19-2022 End: 01-19-2022 Patient encounter procedure DO Jazmin Ball [facility] Phone: [facility] Start: 01-11-2022 End: 01-12-[address] JAZMIN العلي Facility:[facility] Start: 01-03-2022 End: 01-03-2022 Patient encounter procedure DO Jazmin Ball Work Phone: [facility] Start: 12-30-2021 End: 12-30-2021 Patient encounter procedure DO Jazmin Ball Work Phone: [facility]-Pre-Surgical Testing Start: 11-21-2021 End: 11-21-2021 Patient encounter procedure DO Jazmin Ball Work Phone: [facility]-Pacemaker Check Start: 10-19-2021 Office outpatient vi sit 25 minutes Jazmin E Ball Work Phone: [facility] DO Work Phone: Start: 08-15-2021 Patient encounter procedure Jazmin E Ball Work Phone: [facility] [facility] DO Work Phone: Start: 07-26-2021 Rx Renewal Jazmin Hahn Bal l Work Phone: [facility] [facility] DO Work Phone: Start: 07-06-2021 Postop follow up vis it related to original px Jazmin العلي Work Phone: [facility] DO Work Phone: Start: 06-28-2021 Chart Update Jazmin Jovani Bal l Work Phone: [facility] [place] Work Phone: Start: 06-26-2021 Chart Update Jazmin Jovani Bal l Work Phone: [facility] [facility] [place] Work Phone: Start: 06-24-2021 Chart Update Jazmin Jovani Bal l Work Phone: [facility] [place] Work Phone: Start: 06-24-2021 Chart Update Jazmin Hahn Bal l Work Phone: [facility] [facility] [place] Work Phone: Start: 06-23-2021 Chart Update Jazmin Hahn Bal l Work Phone: [facility] [place] Work Phone: Start: 06-23-2021 [facility] Provider: Debbie Mac, Status: Pen, Time: 10:00 AM Jazmin العلي Work Phone: [facility] [facility] [place] Work Phone: Start: 06-22-2021 Chart Update Jazmin Hahn Bal l Work Phone: [facility] [facility] [place] Work Phone: Start: 06-13-2021 Telephone encounter Jazmin العلي Work Phone: [facility] [place] Work Phone: Start: 06-06-2021 Patient encounter procedure Jazmin لاعلي Work Phone: [facility] DO Work Phone: Start: 05-25-2021 Telephone encounter Debbie singletary MD Work Phone: [facility] [facility] DO Work Phone: Start: 07-26-2020 End: 07-31-2020 Evaluation and management of inpatient JAZMIN العلي Facility:[facility] Procedures Date Procedure Procedure Detail Performing Clinician Start: 05-19-2025 Rem interrog pm/ldls pm/ids <90 d tech review Maxwell Medrano MD Work Phone: Start: 05-04-2025 Urine culture Jazmin العلي DO Work Phone: Start: 05-01-2025 Creatinine blood Maxwell Medrano MD Work Phone: Start: 01-30-2025 Rem interrog pm/ldls pm/ids <90 d tech review Maxwell Medrano MD Work Phone: Start: 01-22-2025 Plain chest X-ray Jazmin العلي DO Work Phone: Start: 09-12-2024 Viral nucleic acid assay Jazmin Varela O Work Phone: Start: 09-12-2024 CT of chest without contrast Jazmin landaverde DO Work Phone: Start: 09-11-2024 Plain chest X-ray Jazmin العلي DO Work Phone: Start: 09-05-2024 Ecg routine ecg w/least 12 lds w/i&r Debbie Mac MD Work Phone: Start: 09-05-2024 X-ray of cervical spine Jazmin العلي DO Work Phone: Start: 09-05-2024 X-ray of thoracic spine, two views George العلي DO Work Phone: Start: 06-30-2024 CT of head without contrast Jazmin Moyer l DO Work Phone: Start: 06-30-2024 Plain chest X-ray Jazmin العلي DO Work Phone: Start: 06-26-2024 Radiologic exam esophagus double contrast study Ktaie Yung MD Work Phone: Start: 05-29-2024 Esophageal [...] Start: 01-18-2024 Plain chest X-ray DO Jazmin العلي Work Phone: Start: 11-21-2023 MR lumbar spine wo con DO Jazmin العلي Work Phone: Start: 09-19-2023 Ecg routine ecg [...] Start: 09-01-2022 Plain chest X-ray DO Jazmin Ball Work Phone: Start: 03-09-2022 DH Fibroscan DO Jazmin Ball Work Phone: Start: 01-03-2022 Esophageal manometry DO Jazmin Ball Work Phone: Start: 07-30-2020 MEASUREMENT OF CARDIAC TOTAL ACTIVITY, EXTERNAL APPROACH TANNER HERRERA Start: 07-28-2020 INTRODUCTION OF OTHER GAS INTO RESP TRACT, VIA OPENING JELANI WOO Start: 07-28-2020 Mandaeism of Cardiac Rhythm, Single SANJUANA CARRERO Start: 07-28-2020 ULTRASONOGRAPHY OF RIGHT AND LEFT HEART, TRANSESOPHAGEAL SANJUANA CARRERO Start: 06-20-2017 Screening for osteoporosis Jazmin العلي Other Start: 09-13-2016 General examination of patient Jazmin العلي Other Start: 05-21-2015 Screening mammography aJzmin العلي Other Appendectomy Jazmin العلي Work Phone: Depression screening Arlette العلي Other Hernia repair Jazmin rosen Work Phone: Hysterectomy Jazmin العلي Work Phone: Insertion of pacemak er pulse generator Jazmin العلي Work Phone: Operative procedure on foot Jazmin العلي Work Phone: Plan of Treatment Date Care Activity Detail Author Start: 07-11-2031 DTaP/Tdap/Td Vaccines (2 - Td or Tdap) DTaP/Tdap/Td Vaccines (2 - Td or Tdap) [facility] Start: 07-11-2031 DTaP/Tdap/Td Vaccines (3 - Td or Tdap) DTaP/Tdap/Td Vaccines (3 - Td or Tdap) [facility] Start: 07-11-2031 Tetanus vaccination Tetanus (Td or Tdap) [facility] Start: 04-28-2026 Creatinine measurement Creatinine Level [facility] Start: 04-28-2026 Diabetes mellitus screening Diabetes Screening [facility] Start: 04-28-2026 Potassium measurement Potassium Level [facility] Start: 07-23-2025 End: 07-23-2025 Patient encounter procedure 07/23/2025 4:20 PM EST Procedure Visit [facility] [address] [facility] [address] [place] [address] Joseph Sepulveda DPM [address] [facility] 5 [place] [address] [facility] Start: 05-29-2025 End: 05-29-2025 Patient encounter procedure 05/29/2025 2:15 PM EDT Off ice Visit [facility] Medical Office Building [address] [facility] [address] [place] [address] Maxwell Medrano MD [address] [facility] [address] [place] [address] [facility] Building Start: 05-28-2025 End: 05-28-2025 Patient encounter procedure 05/28/2025 9:[address] [facility] [address] [place] [address] Hardy Betancourt MD [address] [facility] [address] [place] [address] [facility] Start: 05-28-2025 End: 05-28-2025 Admission to same day surgery center [facility] Comment on above: Ablation A-Fib [58733 (CPT )] Start: 05-28-2025 Subsequent hospital visit by physician [facility] Comment on above: Persistent atrial fibrillation (Multi) Start: 05-27-2025 End: 05-27-2025 Patient encounter procedure 05/27/2025 11:[address] [facility] [address] [place] [address] Arron Veloz MD [address] [facility] [place] [address] [facility] Start: 05-26-2025 End: 05-26-2025 Patient encounter procedure 05/26/2025 2:40 PM EDT Off ice Visit [facility] [address] [facility] 250 [place] [address] Debbie Mac MD [address] [facility] [address], [address] [place] [address] [facility] Start: 05-21-2025 End: 05-21-2025 Patient encounter procedure 05/21/2025 11:15 AM EDT Office Visit [facility] Medical Office Building [address] [facility] [address] [place] [address] Maxwell Medrano MD [address] [facility] [address] [place] [address] [facility] Building Start: 05-21-2025 End: 05-21-2025 Professional / ancillary services management 05/21/2025 11:00 AM EDT Ancillary Procedure [facility] Medical Office Building [address] [facility] [address] [place] [address] [facility] Building Start: 05-20-2025 Influenza vaccination Influenza Vaccine (#1) [facility] Start: 05-07-2025 End: 05-07-2025 Patient encounter procedure [facility] Comment on above: Cellulitis of left foot (Primary Dx); Acquired deformity of left toe; Acquired deformity of right toe Start: 05-04-2025 Bacteria identified in Urine by Culture Urine Culture [facility] Start: 05-04-2025 Urine culture [facility] Start: 04-25-2025 End: 10-23-2025 Cardiac Device Check - In Clinic Cardiac Device Check - In Clinic Implantable Cardiac Device Routine Pacemaker Expected: 04/25/2025 (Approximate), Expires: 10/23/2025 [facility] Work Phone: Comment on above: Expected: 04/25/2025 (Approximate), Expi res: 10/23/2025 Start: 04-23-2025 End: 04-23-2025 Patient encounter procedure 04/23/2025 11:30 AM EDT Procedure Visit [facility] [address] [place] [address] Joseph Sepulveda DPM [address] [facility] 5 [place] [address] [facility] Start: 04-20-2025 COVID-19 Vaccine ( season) COVID-19 Vaccine ( season) [facility] Start: 04-20-2025 COVID-19 Vaccine ( season) COVID-19 Vaccine ( season) [facility] Start: 04-20-2025 Influenza vaccination [facility] Start: 03-27-2025 Creatinine measurement Creatinine Level [facility] Start: 03-27-2025 Diabetes mellitus screening Diabetes Screening [facility] Start: 03-27-2025 Potassium measurement Potassium Level [facility] Start: 03-05-2025 End: 03-05-2025 Patient encounter procedure 03/05/2025 3:00 PM EDT Off ice Visit [facility] [address] [facility] [address] [place] [address] Debbie Mac MD [address] [facility] [address], [address] [place] [address] [facility] Start: 02-23-2025 End: 02-23-2025 Patient encounter procedure 02/23/2025 3:00 PM EDT Off ice Visit [facility] Medical Office Building [address] [facility] [address] [place] [address] Cristiana Chapa, MACHINE TRACER[employer] ANALYST [address] [facility] [address] [place] [address] [facility] Medical Office Building Start: 02-12-2025 End: 02-12-2025 Patient encounter procedure 02/12/2025 10:30 AM EDT Office Visit [facility] [address] [facility] [address] [place] [phone] Joseph Sepulveda DPM [address] [facility] 5 [place] [address] Arrived [facility] Comment on above: Arrived Start: 02-06-2025 Echocardiography Echocardiogram [facility] Start: 02-01-2025 [facility] Start: 01-22-2025 Referral to metal die finisher [facility] Start: 01-22-2025 [facility] Start: 01-18-2025 Echocardiography Echocardiogram [facility] Start: 12-31-2024 End: 12-31-2024 Telemedicine consultation with patient 12/31/2024 8:45 AM EDT [facility] [address] [place] [address] Nigel El MD [address] [place] [address] [facility] Start: 12-30-2024 End: 12-30-2024 Telemedicine consultation with patient 12/30/2024 10:00 AM EDT [facility] [address] [place] [address] Nigel El MD [address] [place] [address] [facility] Start: 12-16-2024 End: 12-16-2024 Telemedicine consultation with patient 12/16/2024 2:15 PM EDT [facility] [address] [place] [address] Nigel El MD [address] [place] [address] [facility] Surgery General Start: 12-08-2024 End: 12-08-2024 Admission to same day surgery center 12/08/2024 10:32 AM EDT - 12/08/2024 11:02 AM EDT Surgery [facility] Endoscopy [address] [place] [address] Nigel El MD [address] [place] [address] ESOPHAGOGASTRODUODENOSCOPY WITH ENDOFLIP [facility] Comment on above: ESOPHAGOGASTRODUODENOSCOPY WITH ENDOFLIP Start: 12-08-2024 Subsequent hospital visit by physician 12/08/2024 10:32 AM EDT Hospital Encounter [facility] [address] [place] [address] Nigel El MD [address] [place] [address] [facility] Suite Start: 12-08-2024 End: 12-08-2024 Esophgl balo distension dx std w/provocation [facility] Start: 12-04-2024 End: 06-05-2025 Cardiac Device Check - In Clinic Cardiac Device Check - In Clinic Implantable Cardiac Device Routine Pacemaker Expected: 12/04/2024, Expires: 06/05/2025 [facility] Service Area Work Phone: Comment on above: Expected: 12/04/2024, Expires: Start: 10-23-2024 End: 10-23-2025 Basic metabolic 2000 panel - Serum or Plasma Basic Metabolic Panel Lab Routine Persistent atrial fibrillation (Multi) Expected: 10/23/2024 (Approximate), Expires: 10/23/2025 [facility] Work Phone: Comment on above: Expected: 10/23/2024 (Approximate), Expi res: 10/23/2025 Start: 10-23-2024 End: 10-23-2025 CBC panel - Blood by Automated count CBC Lab Routine Persistent atrial fibrillation (Multi) Expected: 10/23/2024 (Approximate), Expires: 10/23/2025 [facility] Work Phone: Comment on above: Expected: 10/23/2024 (Approximate), Expi res: 10/23/2025 Start: 10-23-2024 End: 10-23-2025 Creatinine [Mass/volume] in Serum or Plasma Creatinine, Serum Lab Routine Persistent atrial fibrillation (Multi) High risk medication use Expected: 10/23/2024 (Approximate), Expires: 10/23/2025 [facility] Work Phone: Comment on above: Expected: 10/23/2024 (Approximate), Expi res: 10/23/2025 Start: 10-23-2024 End: 10-23-2025 CT Heart for congenital disease W contrast IV CT heart structure morphology congenital heart disease w IV contrast Imaging Routine Persistent atrial fibrillation (Multi) Expected: 10/23/2024, Expires: 10/23/2025 [facility] Work Phone: Comment on above: Expected: 10/23/2024, Expires: Start: 10-23-2024 End: 10-23-2025 Prothrombin time (PT) Protime-INR Lab Routine Persistent atrial fibrillation (Multi) Expected: 10/23/2024 (Approximate), Expires: 10/23/2025 [facility] Work Phone: Comment on above: Expected: 10/23/2024 (Approximate), Expi res: 10/23/2025 Start: 10-23-2024 End: 10-23-2025 US Heart Transesophageal Transesophageal Echo (VIRA) Echocardiography Routine Persistent atrial fibrillation (Multi) Expected: 10/23/2024, Expires: 10/23/2025 [facility] Work Phone: Comment on above: Expected: 10/23/2024, Expires: Start: 10-23-2024 End: 10-23-2024 Professional / ancillary services management 10/23/2024 12:20 PM EST Ancillary Procedure [facility] Medical Office Building [address] [facility] [address] [place] [address] [facility] Medical Office Building Start: 10-23-2024 End: 10-23-2024 Patient encounter procedure 10/23/2024 11:00 AM EST Office Visit [facility] Medical Office [facility] [address] [facility] [address] [place] [address] Maxwell Medrano MD [address] [facility] [address] [place] [address] [facility] Medical Office [facility] Start: 09-05-2024 End: 09-05-2025 Complete Pulmonary Function Test (Spirometry/DLCO/Lung Volumes) Complete Pulmonary Function Test (Spirometry/DLCO/Lung Volumes) PFT Routine Persistent atrial fibrillation (Multi) High risk medication use Expected: 09/05/2024 (Approximate), Expires: 09/05/2025 [facility] Service Area Work Phone: Comment on above: Expected: 09/05/2024 (Approximate), Expi res: 09/05/2025 Start: 09-05-2024 End: 09-05-2025 Thyrotropin [Units/volume] in Serum or Plasma Thyroid Stimulating Hormone Lab Routine Persistent atrial fibrillation (Multi) High risk medication use Expected: 09/05/2024 (Approximate), Expires: 09/05/2025 [facility] Work Phone: Comment on above: Expected: 09/05/2024 (Approximate), Expi res: 09/05/2025 Start: 09-04-2024 End: 09-04-2024 Patient encounter procedure 09/04/2024 1:50 PM EST Off ice Visit [facility] [address] [facility] [address] [place] [phone] Debbie Mac MD [address] [facility] [address], [address] [place] [address] [facility] Start: 08-21-2024 Echocardiography Echocardiogram [facility] Start: 07-24-2024 [facility] Start: 07-23-2024 Referral to carpentry specialist [facility] Start: 07-22-2024 Administration of prophylactic treatment [facility] Start: 07-21-2024 [facility] Start: 07-21-2024 Referral to metal die finisher [facility] Start: 07-21-2024 Hospital admission [facility] Start: 07-07-2024 End: 07-07-2024 Patient encounter procedure 07/07/2024 10:30 AM EST Office Visit [facility] Medical Office Building [address] [facility] [address] [place] [address] Cristiana Chapa, MACHINE TRACER[employer] ANALY[employer] [address] [facility] [address] [place] [address] [facility] Medical Office Building Start: 07-03-2024 [facility] Start: 07-01-2024 [facility] Start: 07-01-2024 [facility] Start: 06-30-2024 [facility] Start: 06-30-2024 Physical therapy procedure [facility] Start: 06-30-2024 Referral to metal die finisher [facility] Start: 06-30-2024 Referral to occupational therapist [facility] Start: 06-30-2024 End: 06-30-2024 [facility] Start: 06-30-2024 Hospital admission [facility] Start: 06-26-2024 Subsequent hospital visit by physician 06/26/2024 11:00 AM EST Hospital Encounter [facility] Radiology Department [address] [place] [address] [facility] Start: 06-05-2024 End: 06-05-2024 Patient encounter procedure 06/05/2024 12:00 PM EDT Office Visit [facility] Medical Office Building [address] [facility] [address] [place] [address] Maxwell Medrano MD [address] [facility] [address] [place] [address] [facility] Medical Office Building Start: 05-16-2024 End: 05-16-2024 Patient encounter procedure 05/16/2024 10:00 AM EDT Office Visit [address] [place] [address] Debbie Mac MD [address] [facility] [address], [address] [place] [address] [facility] Start: 04-28-2024 End: 04-28-2024 Patient encounter procedure 04/28/2024 11:30 AM EDT Office Visit [facility] Medical Office [place] [id number] [address] Maxwell Medrano MD [address] [facility] [address] [place] [address] [facility] Medical Office Building Start: 04-24-2024 End: 04-24-2024 Patient encounter procedure 04/24/2024 3:10 PM EDT Off ice Visit [facility] [address] [facility] [address] [place] [address] Debbie Mac MD [address] [facility] [address], [facility] [address] [place] [address] [facility] Start: 04-20-2024 COVID-19 Vaccine ( season) COVID-19 Vaccine ( season) [facility] Start: 04-20-2024 COVID-19 Vaccine ( season) COVID-19 Vaccine ( season) [facility] Start: 04-20-2024 COVID-19 Vaccine ( season) COVID-19 Vaccine ( season) [facility] Start: 04-20-2024 Influenza vaccination Influenza Vaccine (#1) [facility] Start: 04-17-2024 End: 04-17-2025 Digoxin [Mass/volume] in Serum or Plasma Digoxin level Lab Routine High risk medication use Pacemaker Anticoagulation management encounter Longstanding persistent atrial fibrillation (Multi) Sinus bradycardia BMI 28.0-28.9,adult Never smoked any substance Expected: 04/17/2024 (Approximate), Expires: 04/17/2025 [facility] Service Area Work Phone: Comment on above: Expected: 04/17/2024 (Approximate), Expi res: 04/17/2025 Start: 04-07-2024 End: 04-07-2024 Patient encounter procedure 04/07/2024 9:45 AM EDT Off [place] Visit [address] [place] [address] Maxwell Medrano MD [address] [place] [address] [address] [place] [address] [facility] Start: 03-25-2024 End: 03-25-2024 Patient encounter procedure 03/25/2024 2:40 PM EDT Off ice Visit [facility] [address] [facility] [address] [place] [address] Debbie Mac MD [address] [facility] [address], [address] [place] [address] [facility] Start: 03-17-2024 End: 03-17-2024 Patient encounter procedure 03/17/2024 12:30 PM EDT Office Visit [address] [place] [address] Maxwell Medrano MD [address] [place] [address] [address] [place] [address] [facility] Start: 02-28-2024 End: 02-24-2025 ECG 12 Lead ECG 12 Lead ECG Routine Persistent atrial fibrillation (Multi) Expected: 02/28/2024 (Approximate), Expires: 02/24/2025 [facility] Service Area Work Phone: Comment on above: Expected: 02/28/2024 (Approximate), Expi res: 02/24/2025 Start: 02-28-2024 End: 02-28-2024 Professional / ancillary services management 02/28/2024 1:00 PM EDT Ancillary Procedure [address] [place] [address] [facility] Start: 01-20-2024 [facility] Start: 01-19-2024 [facility] Start: 01-18-2024 Referral to metal die finisher [facility] Start: 01-18-2024 [facility] Start: 01-18-2024 Hospital admission [facility] Start: 11-28-2023 End: 11-28-2023 Patient encounter procedure 11/28/2023 3:10 PM EDT [place] [address] [place] [address] Debbie Mac MD [address] [place] [address] [facility] Start: 09-19-2023 End: 09-19-2023 Patient encounter procedure 09/19/2023 1:00 PM EST Off [place] Visit [place] [address] [place] [address] Debbie Mac MD [address] [place] [address] [facility] Start: 09-02-2023 Echocardiography Echocardiogram [facility] Start: 08-20-2023 Annual wellness visit Annual Wellness Visit ([id number]) [facility] Start: 07-05-2023 End: 07-05-2023 Patient encounter procedure 07/05/2023 1:30 PM EST Appointment [place] [address] [place] [address] [facility] Start: 05-31-2023 FUV, Provider: Debbie Mac, Status: Pen, Time: 3:00 PM FUV, Provider: Debbie Mac, Status: Pen, Time: 3:[address] [facility] Work Phone: Start: 05-31-2023 End: 05-31-2025 Heart Transthoracic Transthoracic Echo (TTE) Complete Echocardiography Routine Chronic diastolic heart failure (CMS/HCC) Essential hypertension, benign Dyspnea, unspecified type Expected: 05/31/2023 (Approximate), Expires: 05/31/2025 [facility] Service Area Work Phone: Comment on above: Expected: 05/31/2023 (Approximate), Expi res: 05/31/2025 Start: 05-09-2023 FUV, Provider: Maxwell Medrano, Status: Pen, Time: 4:00 PM FUV, Provider: Maxwell Medrano, Status: Pen, Time: 4:00 PM [facility] 250 DO Work Phone: Start: 04-20-2023 COVID-19 Vaccine ( season) COVID-19 Vaccine ( season) [facility] Start: 04-20-2023 Influenza vaccination Influenza Vaccine (#1) [facility] Start: 04-04-2023 FUV, Provider: Maxwell Medrano, Status: Pen, Time: 3:00 PM FUV, Provider: Maxwell Medrano, Status: Pen, Time: 3:00 PM [facility] 250 DO Work Phone: Start: 03-05-2023 [facility] Start: 03-05-2023 [facility] Start: 02-14-2023 FUV, Provider: Maxwell Medrano, Status: Pen, Time: 1:30 PM FUV, Provider: Maxwell Medrano, Status: Pen, Time: 1:[address] [facility] Work Phone: Start: 01-09-2023 [facility] Start: 01-04-2023 FUV, Provider: Debbie Mac, Status: Pen, Time: 1:50 PM FUV, Provider: Debbie Mac, Status: Pen, Time: 1:50 PM [facility] 250 DO Work Phone: Start: 11-27-2022 Laparoscopic cholecystectomy OR Cholecystectomy Laparoscopic (Not Applicable) [facility] Start: 11-27-2022 End: 11-27-2022 [facility] Start: 10-13-2022 FUV, Provider: Debbie Mac, Status: Pen, Time: 10:30 AM FUV, Provider: Debbie Mac, Status: Pen, Time: 10:30 AM [facility] 250 DO Work Phone: Start: 09-21-2022 [facility] Start: 09-17-2022 Hospital admission [facility] Start: 09-17-2022 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 to metal die finisher [facility] Start: [facility] Start: 09-01-2022 Referral to metal die finisher [facility] Start: 09-01-2022 Hospital admission [facility] Start: 09-01-2022 [facility] Start: 09-01-2022 Bacteria identified in Urine by Culture Urine Culture [facility] Start: 07-12-2022 FUV, Provider: Debbie Mac, Status: Pen, Time: 2:40 PM FUV, Provider: Debbie Mac, Status: Pen, Time: 2:40 PM [facility] 250 DO Work Phone: Start: 03-09-2022 [facility] Work Phone: Start: 02-22-2022 FUV, Provider: Debbie Mac, Status: Pen, Time: 2:50 PM FUV, Provider: Debbie Mac, Status: Pen, Time: 2:50 PM [facility] 250 DO Work Phone: Start: 01-08-2022 COVID-19 Vaccine (3 - Pfizer series) COVID-19 Vaccine (3 - Pfizer series) [facility] Start: 01-03-2022 [facility] Work Phone: Start: 10-19-2021 FUV, Provider: Debbie Mac, Status: Pen, Time: 3:30 PM FUV, Provider: Debbie Mac, Status: Pen, Time: 3:30 PM -[facility]-[place] 250 DO Work Phone: Start: 09-12-2021 FUV, Provider: Debbie Mac, Status: Pen, Time: 2:50 PM FUV, Provider: Debbie Mac, Status: Pen, Time: 2:50 PM -[facility]-[place] 250 DO Work Phone: Start: 07-26-2021 FUV, Provider: Debbie Mac, Status: Pen, Time: 2:00 PM -[facility] 250 DO Work Phone: Start: 06-23-2021 SURGNONUH, Provider: Debbie Mac, Status: Pen, Time: 10:00 AM SURGNONUH, Provider: Debbie Mac, Status: Pen, Time: 10:00 AM [place] [address] [place] Work Phone: Start: 11-08-2019 Pneumococcal Vaccine: 65+ Years (2 - PCV) Pneumococcal Vaccine: 65+ Years (2 - PCV) [facility] Start: 11-08-2019 Pneumococcal Vaccine: 65+ Years (2 of 2 - PCV) Pneumococcal Vaccine: 65+ Years (2 of 2 - PCV) [facility] Start: 2017 RSV High Risk: (Elderly (60+) or Population) (1 - 1-dose 75+ series) RSV High Risk: (Elderly (60+) or Population) (1 - 1-dose 75+ series) [facility] Start: 2017 RSV Vaccine (75+ years) RSV Vaccine (75+ years) [facility] Start: 2017 RSV vaccine (adult) (1 - 1-dose 75+ series) RSV vaccine (adult) (1 - 1-dose 75+ series) [facility] Start: 10-31-2012 Zoster Vaccines (2 of 3) Zoster Vaccines (2 of 3) [facility] Start: 2007 Pneumococcal vaccination Pneumococcal Vaccine(s) (65+ yrs) (1 of 1 - PCV) [facility] Start: 2007 Screening for osteoporosis [facility] Start: 2002 Hepatitis B (HBV) Vaccine (optional start 60+ years) Hepatitis B (HBV) Vaccine (optional start 60+ years) [facility] Start: 2002 Hepatitis B Vaccines (1 of 3 - Risk 3-dose series) Hepatitis B Vaccines (1 of 3 - Risk 3-dose series) [facility] Start: 2002 RSV patients and/or patients aged 60+ years (1 - 1-dose 60+ series) RSV patients and/or patients aged 60+ years (1 - 1-dose 60+ series) [facility] Start: 1992 Pneumococcal vaccination Pneumococcal Vaccine(s) (50+ yrs) (1 of 1 - PCV) [facility] Start: 1992 Shingles (RZV) Vaccine (1 of 2) Shingles (RZV) Vaccine (1 of 2) [facility] Start: 1961 Hepatitis A (HAV) Vaccine (optional start 19+ years) Hepatitis A (HAV) Vaccine (optional start 19+ years) [facility] Start: 1961 Hepatitis A Vaccines (1 of 2 - Risk 2-dose series) Hepatitis A Vaccines (1 of 2 - Risk 2-dose series) [facility] Start: 1961 Urine screening for protein CKD: [facility]: 1960 Diabetes mellitus screening Diabetes Screening [facility] Start: 1942 Creatinine measurement Creatinine Level [facility] Start: 1942 Lipid panel Lipid Panel [facility] Start: 1942 Medicare Annual Wellness Visit Medicare Annual Wellness Visit (AWV) [facility] Start: 1942 Potassium measurement Potassium Level [facility] Start: 1942 Screening for osteoporosis Bone Density Scan [facility] Start: 1942 Thyroid stimulating hormone measurement TSH Level [facility] ABLATION A-FIB ABLATION A-FIB P ersistent atrial fibrillation (Multi) [facility] Work Phone: Albumin/Globulin ratio [facility] Anion gap measurement [facility] Basophils [#/volume] in Blood by Automated count [facility] Basophils/100 leukoc ytes in Blood by Automated count [facility] End: 12-04-2024 Cardiac Device Check - Remote Cardiac Device Check - R emote Implantable Cardiac Device Routine Pacemaker 52 Occurrences starting 06/05/2024 until 12/04/2024 [facility] Work Phone: Comment on above: 52 Occurrences starting 06/05/2024 until 12/04/2024 End: 09-08-2024 Cardiac Device Check - Remote [facility] Servi ce Area Work Phone: Comment on above: Once for 1 Occurrences starting 09/08/19 until 09/08/2024 End: 04-25-2025 Cardiac Device Check - Remote Cardiac Device Check - R emote Implantable Cardiac Device Routine Pacemaker 52 Occurrences starting 10/23/2024 until 04/25/2025 [facility] Service Area Work Phone: Comment on above: 52 Occurrences starting 10/23/2024 until 04/25/2025 Cardiac Device Check - Remote Ca rdiac Device Check - Remote Implantable Cardiac Device Routine Pacemaker Sick sinus syndrome (Multi) 05/19/2025 10:43 AM EDT [facility] Work Phone: Comprehensive metabo lic 2000 panel - Serum or Plasma [facility] End: 05-01-2025 Creatinine [Mass/volume] in Serum or Plasma [facility] Work Phone: Comment on above: Once (Lab) for 1 Occurrences starting until 05/01/2025 CT Abdomen and Pelvi s W contrast IV [facility] CT Abdomen and Pelvi s W contrast IV [facility] ECG 12 Lead ECG 12 Lead ECG Routine Persistent atrial fibrillation (Multi) 02/23/2025 3:00 PM EDT [facility] Work Phone: Eosinophils/100 leuk ocytes in Blood by Automated count [facility] Ephys eval w/ablatio n ventricular tachycardia ABLATION A-FIB PAROXYSMAL Persistent atrial fibrillation (Multi) [employer] [facility] Erythrocyte distribu tion width [Ratio] by Automated count [facility] Erythrocytes [#/volu me] in Blood [facility] Esophageal motility study w/interp&rpt ESOPHAGUS MOTILITY (MANOMETRY) STUDIES Procedures Routine Esophageal dysphagia 05/29/2024 3:48 PM EDT [employer] Work Phone: Esophagogastroduoden oscopy transoral diagnostic [...] Hepatitis A virus an tibody, IgM type [facility] Work Phone: Hepatitis B core ant ibody measurement, IgM type [facility] Work Phone: Hepatitis B virus vieira rface Ag [Presence] in Serum or Plasma by Immunoassay [facility] Work Phone: Hepatitis C virus Ab Signal/Cutoff in Serum or Plasma by Immunoassay [facility] Work Phone: Hepatitis C virus RN A [log units/volume] (viral load) in Serum or Plasma by GUILLERMO with probe detection [facility] Work Phone: Hepatitis C virus RN A [Units/volume] (viral load) in Serum or Plasma by GUILLERMO with probe detection [facility] Work Phone: Homogenous nuclear A b pattern [Titer] in Serum [facility] Work Phone: Leukocytes [#/volume ] corrected [...] [facility] Nuclear Ab [Titer] in Serum [facility] Work Phone: Nucleated erythrocyt es [Presence] in Blood by Automated count [facility] Patient Education [facility] Work Phone: Patient referral [facility] Work Phone: Platelet mean volume [Entitic volume] in Blood by Automated count [facility] Platelets [#/volume] in Blood [facility] End: 08-21-2023 US Heart Transthoracic [facility] Service Area Work Phone: Comment on above: Once for 1 Occurrences starting 08/21/19 24 until 08/21/2023 [facility] Immunizations Immunization Date Immunization Notes Care Provider Rola priest 06-29-2023 influenza, high dose seasonal, preservative-free Jazmin العلي Other [facility] [employer] Other 06-29-2023 influenza virus vaccine, unspecified formulation DO Jazmin العلي Work Phone: [facility] 05-26-2022 Fluad Quadrivalent 0 .5 ML Intramuscular Prefilled Syringe Jazmin العلي Work Phone: [facility] 250 DO Work Phone: 05-26-2022 influenza virus vaccine, split virus (incl. purified surface antigen) Jazmin العلي Other [facility] [employer] Other 05-26-2022 influenza virus vaccine, unspecified formulation Debbie Mac MD Work Phone: [facility] 11-13-2021 Comirnaty 30 MCG/0.3 ML Intramuscular Suspension Jazmin العلي Work Phone: [facility] 250 DO Work Phone: 11-13-2021 COVID-19 mRNA, Comirnaty (Pfizer) DO Jazmin العلي Work Phone: [facility] 07-11-2021 tetanus toxoid, redu maranda diphtheria toxoid, and acellular pertussis vaccine, adsorbed Jazmin العلي Work Phone: [facility] 06-14-2021 influenza virus vaccine, split virus (incl. purified surface antigen) Jazmin العلي Other [facility] [employer] Other 06-14-2021 influenza virus vaccine, unspecified formulation [...] influenza, seasonal, injectable Jazmin العلي Work Phone: [facility] 250 DO Work Phone: Comment on above: Series: 05-05-2020 Flu Vaccine - Adult DO George العلي Work Phone: [facility] 05-05-2020 influenza virus vaccine, split virus (incl. purified surface antigen) Jazmin العلي Other [facility] [employer] Other 05-05-2020 influenza virus vaccine, unspecified formulation DO Jazmin العلي Work Phone: [facility] 05-05-2020 influenza, seasonal, injectable Jazmin العلي Work Phone: [facility] 05-20-2019 influenza, high dose seasonal, preservative-free Jazmin العلي Work Phone: [facility] 250 DO Work Phone: 11-07-2018 pneumococcal polysaccharide vaccine, 23 valent Jazmin العلي Work Phone: [facility] 250 DO Work Phone: 06-12-2018 influenza virus vaccine, split virus (incl. purified surface antigen) Jazmin العلي Other [facility] [employer] Other 06-12-2018 influenza virus vaccine, unspecified formulation DO Jazmin العلي Work Phone: [facility] 06-12-2018 Seasonal trivalent influenza vaccine, adjuvanted, preservative free Jazmin العلي Work Phone: [facility] 250 DO Work Phone: 05-20-2018 influenza, injectabl e, quadrivalent, preservative free [facility]az[facility] العلي [facility] Work Phone: 06-21-2017 diphtheria, tetanus toxoids and acellular pertussis vaccine, unspecified formulation Jazmin العلي Other [facility] 07-06-2016 pneumococcal conjuga te vaccine, 13 valent Jazmin العلي Other [facility] 07-06-2016 pneumococcal Conjuga te, unspecified formulation; Translations: [Need for prophylactic vaccination against Streptococcus pneumoniae (pneumococcus)] Jazmin العلي Other [facility] [employer] Other 03-20-2015 pneumococcal polysaccharide vaccine, 23 valent Jazmin العلي Work Phone: [place] [address] [place] Work Phone: Comment on above: Series: 03-20-2014 influenza virus vaccine, unspecified formulation Jazmin العلي Work Phone: [place] [address] [place] Work Phone: 06-24-2013 tetanus and diphther ia toxoids, adsorbed, preservative free, for adult use (5 Lf of tetanus toxoid and 2 Lf of diphtheria toxoid) Jazmin العلي Other [facility] 09-05-2012 zoster vaccine, live Benjami saad Jovani العلي Work Phone: [place] [address] DO Work Phone: 07-29-2008 pneumococcal polysaccharide vaccine, 23 valent Jazmin العلي Other [facility] Payers Date Payer Category Payer Medicare [id number] 2024 Self-pay [id number] 2022 Medicare [id number] 2022 Medicare (Managed Care) 1.2. [id number] 2022 Unknown 2020 Medicare [id number] Unknown [id number] 1959 Private Health Insurance [id number] 1942 Unknown [id number] 2.16.8 40.1.194896.3.579.2.647 1942 Unknown [id number] 2.16. 840.1.429269.3.579.2.356 1942 Unknown [id number] 2.16.84 0.1.152892.3.579.2.593 1942 Unknown [id number] 2.16.84 0.1.042700.3.579.2.593 1942 Unknown [id number] 2.16.84 0.1.922105.3.579.2.593 1942 Unknown [id number] 2.16.84 0.1.277737.3.579.2.593 1942 Unknown [id number] 2.16.84 0.1.217549.3.579.2.593 1942 Unknown [id number] 2.16.84 0.1.586310.3.579.2.593 1942 Unknown [id number] 2.16.84 0.1.725432.3.579.2.593 1942 Unknown [id number] 2.16.8 40.1.762535.3.579.2.1245 1942 Unknown [id number] 2.16. 840.1.253422.3.579.2.196 1942 Unknown [id number] 2.16. 840.1.341401.3.579.2.196 1942 Unknown [id number] 2.16. 840.1.504892.3.579.2.196 1942 Unknown [id number] 2.16. 840.1.454317.3.579.2.196 1942 Unknown [id number] 2.16. 840.1.202932.3.579.2.196 1942 Unknown [id number] 2.16. 840.1.996400.3.579.2.196 1942 Unknown [id number] 2.16. 840.1.388306.3.579.2.732 1942 Unknown [id number] 2.16. 840.1.842323.3.579.2.73 1942 Unknown [id number] 2.16. 840.1.393895.3.579.2.732 1942 Unknown [id number] 2.16. 840.1.445033.3.579.2.73 1942 Unknown [id number] 2.16. 840.1.850930.3.579.2.732 1942 Unknown [id number] 2.16. 840.1.738502.3.579.2.732 1942 Unknown [id number] 2.16. 840.1.997442.3.579.2.732 1942 Unknown [id number] 2.16. 840.1.578225.3.579.2.73 1942 Unknown [id number] 2.16. 840.1.984161.3.579.2.732 1942 Unknown [id number] 2.16. 840.1.699524.3.579.2.732 1942 Unknown [id number] 2.16. 840.1.021059.3.579.2.1244 1942 Unknown [id number] 2.16. 840.1.869807.3.579.2.1244 1942 Unknown [id number] 2.16. 840.1.722803.3.579.2.1244 1942 Unknown [id number] 2.16. 840.1.881209.3.579.2.1244 1942 Unknown [id number] 2.16. 840.1.367124.3.579.2.4 1942 Unknown [id number] 2.16. 840.1.405845.3.579.2.1244 1942 Unknown [id number] 2.16.8 40.1.135680.3.579.2.1245 1942 Unknown [id number] 2.16.8 40.1.049246.3.579.2.1246 1942 Unknown [id number] 2.16.8 40.1.755318.3.579.2.6 1942 Unknown [id number] 2.16.8 40.1.026963.3.579.2.6 1942 Unknown [id number] 2.16.8 40.1.709178.3.579.2.6 1942 Unknown [id number] 2.16.8 40.1.447315.3.579.2.1246 1942 Unknown [id number] 2.16.8 40.1.881167.3.579.2.1246 1942 Unknown [id number] 2.16.8 40.1.586052.3.579.2.1259 1942 Unknown [id number] 2.16.8 40.1.123516.3.579.2.1259 1942 Unknown [id number] 2.16.8 40.1.366402.3.579.2.1259 Medicare [id number] Private Health Insurance [id number] Unknown [id number] 2.16.8 40.1.839528.3.579.2.531 Unknown [id number] 2.16.8 40.1.523536.3.579.2.531 Unknown [id number] 2.16.8 40.1.659936.3.579.2.531 Unknown [id number] 2.16.8 40.1.900541.3.579.2.531 Unknown [id number] 2.16.8 40.1.415074.3.579.2.531 Unknown [id number] 2.16.8 40.1.664511.3.579.2.531 Unknown [id number] 2.16.8 40.1.964208.3.579.2.531 Social History Date Type Detail Facility Start: 05-31-2023 End: 03-21-2024 No alcohol use No alcohol use [facility] 250 DO Work Phone: Start: 08-22-2021 End: 05-31-2023 Tobacco smoking status NHIS Never smoked tobacco (finding) [facility] Start: 1940 Sex Assigned At Female [facility] Start: 05-31-2023 End: 03-21-2024 Sex Assigned At [facility] [employer] Other Start: 05-31-2023 End: 01-15-2024 Tobacco use and exposure Smokeless tobacco non-user [facility] Work Phone: Start: 05-31-2023 End: 02-23-2025 Alcohol intake Lifetime non-drinker (finding) [facility] Work Phone: Start: 1940 Sex Assigned At Not on file [facility] Work Phone: Start: 05-21-2023 End: 10-23-2024 Exposure to SARS-CoV-2 (event) Not sure [facility] Tobacco smoking stat [facility] Tobacco smoking consumption unknown [facility] How often to you hav e a drink containing alcohol? Never [facility] Start: 07-15-2022 How many standard drinks containing alcohol do you have on a typical day? Patient does not drink [facility] Work Phone: In the past 12 month s, was there a time when you were not able to pay the mortgage or rent on time? No [facility] Work Phone: Start: 04-23-2024 End: 01-23-2025 Sex Female (finding) [facility] Work Phone: Start: 02-21-2023 Alcohol Comment caffeine: none [facility] Medical Equipment Procedure Code Equipment Code Equipment Origin al Text Equipment Identifier Dates Insertion, pacemaker Endocardial pacing lead [id number] FDA Start: 06-29-2021 Insertion, pacemaker Endocardial pacing lead ()[id number] FDA Start: 06-29-2021 Insertion, pacemaker Dual-chambe r implantable pacemaker, rate-responsive ()[id number] FDA Start: 06-29-2021 Cystoscopy, with ureteral calculus manipulation and stent placement Polymeric ureteral stent ()[id number] FDA Start: 07-01-2021 Goals Date Patient Goal Desired Activity /State Personal health goal Functional Status Date Assessment Result Facility 01-23-2025 Functional status Patient at Baseline [facility] Work Phone: 07-24-2024 Functional status Patient at Baseline [facility] Work Phone: 07-03-2024 Functional status Patient at Baseline [facility] Work Phone: 06-30-2024 Functional status Disability Sta tus Patient at Baseline [facility] Work Phone: 03-27-2024 Are you deaf, or do you have serious difficulty hearing No 03/27/2024 1:02 PM EDVera Bocanegra, RN No [facility] 03-27-2024 Are you blind, or do you have serious difficulty seeing, even when wearing glasses No 03/27/2024 1:02 PM EDVera Bocanegra, RN No [facility] Work Phone: 03-27-2024 Do you have serious difficulty walking or climbing stairs No 03/27/2024 1:02 PM Vera Figueroa, RN No [facility] Work Phone: 03-27-2024 Do you have difficul ty dressing or bathing No 03/27/2024 1:02 PM Vera Figueroa, RN No [facility] Work Phone: 03-27-2024 Because of a physica l, mental, or emotional condition, do you have difficulty doing errands alone such as visiting a physician's office or shopping No 03/27/2024 1:02 PM Vera Figueroa, RN No [facility] Work Phone: 01-20-2024 Functional status Patient at Baseline [facility] Work Phone: 09-21-2022 Functional status Patient at Baseline [facility] Work Phone: 09-06-2022 Functional status Patient at Baseline [facility] Work Phone: 09-02-2022 Functional status Bathing Patien t at Baseline [facility] Work Phone: Mental Status Date Assessment Result Facility 01-23-2025 Cognitive function Cognitive Sta tus Patient at Baseline [facility] Work Phone: 07-24-2024 Cognitive function Cognitive Sta tus Patient at Baseline [facility] Work Phone: 07-03-2024 Cognitive function Cognitive Sta tus Patient at Baseline [facility] Work Phone: 03-27-2024 Because of a physica l, mental, or emotional condition, do you have serious difficulty concentrating, remembering, or making decisions No 03/27/2024 1:02 PM EDT Vera Ang, ROSA No [facility] Work Phone: 01-20-2024 Cognitive function Cognitive Sta tus Patient at Baseline [facility] Work Phone: 09-21-2022 Cognitive function Cognitive Sta tus Patient at Baseline [facility] Work Phone: 09-06-2022 Cognitive function Cognitive Sta tus Patient at Baseline [facility] Work Phone: Clinical Notes 06-21-2021 to 05-07-2025 Joseph Sepulveda DPM - 05/07/2025 3:10 PM EDTCKATELYNN Kaye - 02/23/2025 3:00 PM EDTJoseph Sepulveda DPM - 02/12/2025 10:30 AM EDT Note Date & Type Note Facility 05-07-2025 History of Present illness Narrative Patient: Austin Allred Golden : 1940 PCP: Jazmin العلي, DO SUBJECTIVE Patient has complaints of painful hammertoe type deformities [...] like surgery after this She presents today for follow up of cellulitis to the left 3rd toe for the past week and states. negative drainage and has been using betadine to toe and abx with positive improvement. Patient is also has positive pain to the dorsum of her left foot and area of bony prominence especially with shoe gear and tried wider shoes with negative improvement Patient denies n/f/v/c. Allergies: Allergies Allergen Reactions [...] tablet, as directed Orally, Disp: , Rfl: clindamycin (Cleocin) 300 MG capsule, Take 1 capsule (300 mg) by mouth in the morning and 1 capsule (300 mg) in the evening and 1 capsule (300 mg) before bedtime. Do all this for 10 days., Disp: 30 capsule, Rfl: 0 clotrimazole-betamethasone (Lotrisone) cream, Twice daily, Disp: , [...] by mouth Daily, Disp: , Rfl: HYDROcodone-acetaminophen (Thrall) 10-325 MG tablet, 1 tablet, Disp: , [...] Resource Strain: Low Risk (03/21/2024) Received from [facility] Overall Financial Resource Strain (CARDIA) Difficulty of Paying Living Expenses: Not hard at all Food Insecurity: Not on file Transportation Needs: No Transportation Needs (03/24/2024) Received from [facility] PRAPARE - Transportation Lack of Transportation (Medical): No Lack of Transportation (Non-Medical): No Physical Activity: Not on file Stress: Not on file Social Connections: Not on file Intimate Partner Violence: Unknown (02/14/2024) Received from [facility] Safety & Environment Fear of Current or Ex-Partner: Not on file Emotionally Abused: Not on file Physically Abused: Not on file Sexually Abused: Not on file Physically or Sexually Abused: Not on file Housing Stability: Low Risk (03/21/2024) Received from [facility] Housing Stability Vital Sign Unable to Pay for Housing in the Last Year: No Number of Times Moved in the Last Year: 1 Homeless in the Last Year: No ROS: General: denies fever, chills, fatigue, malaise GI: denies loose or watery stool on antibiotic Musculoskeletal: positive history of generalized arthritis, denies [...] left 3rd toe DIPJ region has a resolved lesion with negative drainage or erythema Dorsum of the left 1st metatarsal cuneiform joint has area of bony prominence VASC: Positive palpable pedal pulses bilaterally NEURO: Gross sensation intact to bilateral feet ORTHO: Positive pain on palpation to toenails of the left 1,2,3,4,5 toes and right 1,2,3,4,5 toes Notable rigid contracture of the right 2nd and 3rd digital deformities with flexion deformities toes 2 through 5 bilaterally diminished pain on palpation left 3rd toe Positive pain on palpation to the left dorsal exostosis ASSESSMENT 1. Cellulitis of left foot 2. Acquired deformity of left toe 3. Acquired deformity of right toe 4. Exostosis of left foot PLAN Discussed proper foot care with patient today. Debride nails in length and thickness digits 1 through 10 Discussed digital deformities and particularly right and left 2nd and 3rd digital deformities and discussed possible digital deformity surgery including PIPJ arthrodesis with K-wire and postoperative timeframe in detail patient may consider otherwise continue with toe spacer. Also discussed possible left dorsum of the forefoot exostectomy and patient may consider in the August timeframe of 2025 She continues to wear accommodative shoe gear Pt to finish oral abx f with toe spacers dispensed today Joseph Sepulveda DPM documented in this encounter [facility] 02-23-2025 History of Present illness Narrative Chief Complaint: Chief Complaint Patient presents with Follow-up Pacemaker check follow up Austin Golden is a 84 y.o. female that presents to the office today for cardiac follow-up. 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 Mac and Dr. Medrano. She was [...] procedure at that time. Recently admitted to [facility] 01/23/2025 with atrial flutter both RVR at [...] who recommends proceeding with PVI ablation at [facility]. Will proceed with previously placed CT [...] Heart Cath; Surgeon: Sonu Mendez MD; Location: [facility]; Service: Cardiovascular; Laterality: Left; CT ANGIO NECK [...] 10/19/2021 Pacemaker insertion documented in this encounter [facility] Work Phone: 02-12-2025 History of Present [...] by mouth Daily, Disp: , Rfl: HYDROcodone-acetaminophen (Thrall) 10-325 MG tablet, 1 tablet, Disp: , [...] Resource Strain: Low Risk (03/21/2024) Received from [facility] Overall Financial Resource Strain (CARDIA) Difficulty of Paying Living Expenses: Not hard at all Food Insecurity: Not on file Transportation Needs: No Transportation Needs (03/24/2024) Received from [facility] PRAPARE - Transportation Lack of Transportation (Medical): No Lack of Transportation (Non-Medical): No Physical Activity: Not on file Stress: Not on file Social Connections: Not on file Intimate Partner Violence: Unknown (02/14/2024) Received from [facility] Safety & Environment Fear of Current or Ex-Partner: Not on file Emotionally Abused: Not on file Physically Abused: Not on file Sexually Abused: Not on file Physically or Sexually Abused: Not on file Housing Stability: Low Risk (03/21/2024) Received from [facility] Housing Stability Vital Sign Unable to [...] Joseph Sepulveda DPM documented in this encounter [facility] 01-23-2025 Consult note Note Date/Time January 23, 2025 11:20am [facility] [address] [place] [address] Cardiology Consult Note Signed Patient: Austin Golden MR#: [id number] : 1940 Acct:[id number] Age/Sex: 84 / F Adm Date: 5 Loc: Room: [address] [place] [address] Type: ADM IN Attending Dr: Fahad Kim DO Copies to: DO Jimena Carias MD, [facility] Fahad Kim DO~ Cardiology HPI History of Present Illness [...] comfortably. The patient was evaluated electrophysiology at [facility] Dr. Medrano and ablation was [...] Xarelto and no constitutional symptoms. [facility] Medical History (Updated 01/23/25 @ 11:18 by [...] LVEF 55%, VALERIE, normal RV size/function, RVSP 01/2024 Dyspnea on exertion Problem List clean-up [...] Social History Comments: independent living at the [facility] Medications and Allergies Allergies No Known [...] Lymph # (Auto) 1.4 1.1 (1.00-4.8) x10E3/uL [place]leton # (Auto) 0.6 0.5 (0.0-0.8) x10E3/uL Eos [...] @ 10 MG/HR 10 mls/hr IV .Q10H [facility] Rx#:[id number] Oral 200 / 200 Other: # Voids [...] Code(s): I25.10 - Atherosclerotic heart disease of tetlin coronary artery without angina pectoris (3) Esophageal [...] will be referred back to electrophysiology at [facility] for ablation of atrial fibrillation, the patient is agreeable, arrangements will be made through our office Code(s): I48.19 - Other persistent atrial fibrillation Documented By: Jimena Smith MD, [facility] 5 1111 Signed By: <Electronically signed by MD CLAUDIA Smith> 01/23/[address] [place] [address] Work Phone: 1(667) 393-607306-06-2025 [place] [address] Cardiology Consult Note Signed Patient: Austin Golden MR#: [id number] : 1940 Acct:[id number] Age/Sex: 84 / F Adm Date: 5 Loc: 3T Room: [address] [place] [address] Type: ADM IN Attending Dr: Fahad Kim DO Copies to: DO Jimena Carias MD, [facility] Fahad Kim DO~ Cardiology HPI History of Present Illness [...] comfortably. The patient was evaluated electrophysiology at [facility] Dr. Medrano and ablation was [...] Xarelto and no constitutional symptoms. [facility] Medical History (Updated 01/23/25 @ 11:18 by [...] Social History Comments: independent living at the [facility] Medications and Allergies Allergies No Known [...] mg PO DAILY #30 caps 09/17/24 [Rx Pvfaparwi12/05/25] duloxetine 30 mg capsule,delayed release 30 mg [...] Lymph # (Auto) 1.4 1.1 (1.00-4.8) x10E3/uL [place] # (Auto) 0.6 0.5 (0.0-0.8) x10E3/uL Eos [...] 10 MG/HR 10 mls/hr IV .Q10H [facility] Rx#:[id number] Oral 200 / 200 Other: # Voids [...] Code(s): I25.10 - Atherosclerotic heart disease of tetlin coronary artery without angina pectoris (3) Esophageal [...] will be referred back to electrophysiology at [facility] for ablation of atrial fibrillation, the patient is agreeable, arrangements will be made through our office Code(s): I48.19 - Other persistent atrial fibrillation Documented By: Jimena Smith MD, [facility] 1111 Signed By: 01/23/[address] [place], [place] 5837706-06-2025 History and physical note Author Ángel Minaya [facility] Note Date/Time January 22, 2025 11:17 pm [facility] [address] [place] [address] Hospitalist H&P Signed Patient: Austin Golden MR#: [id number] : 1940 Acct:[id number] Age/Sex: 84 / F Adm Date: 5 Loc: ER Room: Type: [facility] ER Attending Dr: Copies to: MD [...] noted below or in HPI [facility] Medical History (Updated 01/22/25 @ 23:17 by [...] List clean-up per request of Phys. EHR [facility] Surgical History History of repair of hiatal [...] List clean-up per request of Phys. EHR [facility] H/O foot surgery left Problem List clean-up [...] Social History Comments: independent living at the [facility] Medications and Allergies Allergies No Known [...] % (Auto) 17.7 % (.) 01/22/25 20:54 Colleton % (Auto) 7.9 % (.) 01/22/25 20:54 Eos % (Auto) 2.5 % (.) 01/22/25:54 Baso % (Auto) 1.2 % (.) 01/22/25 20:54 Nucleat RBC Rel Count 0.2 /100 WBC (0-0.5) 01/22/25 20:54 Neut # (Auto) 5.5 x10E3/uL (1.8-7.7) 01/22/25 20:54 Lymph # (Auto) 1.4 x10E3/uL (1.00-4.8) 01/22/25 20:54 Colleton # (Auto) 0.6 x10E3/uL (0.0-0.8) 01/22/25 20:54 [...] days): 4 Documented By: Ángel Minaya MD 01/22/257 Signed By: <Electronically signed by Ángel Minaya MD> 01/22/[address] [facility] Work Phone: 1(676) 192-652806-05-2025 History and physical [address] [address] Hospitalist H&P Signed Patient: Austin Golden MR#: [id number] : 1940 Acct:[id number] Age/Sex: 84 / F Adm Date: 5 Loc: ER Room: Type: [facility] ER Attending Dr: Copies to: MD Jazmin Connor DO Thomas D Kramer Jr, MD~ HPI DATE OF EXAMINATION: 01/22/25 CHIEF COMPLAINT: Shortness of breath HISTORY OF PRESENT ILLNESS: This is a 84-year-old female with significant past medical history of atrial fibrillation, CKD, coronary artery disease, anxiety, GERD, pulmonary hypertension, STOENY, hyperlipidemia, depression, hypertension, [facility] [...] noted below or in HPI [facility] Medical History (Updated 01/22/25 @ 23:17 by [...] Social History Comments: independent living at the [facility] Medications and Allergies Allergies No [...] mg PO DAILY #30 caps 09/17/24 [Rx Yyektrvfy58/05/25] duloxetine 30 mg capsule,delayed release 30 mg [...] % (Auto) 17.7 % (.) 01/22/25 20:54 Colleton % (Auto) 7.9 % (.) 01/22/25 20:54 Eos % (Auto) 2.5 % (.) 01/22/25 20:54 Baso % (Auto) 1.2 % (.) 01/22/25 20:54 Nucleat RBC Rel Count 0.2 /100 WBC (0-0.5) 01/22/25 20:54 Neut # (Auto) 5.5 x10E3/uL (1.8-7.7) 01/22/25 20:54 Lymph # (Auto) 1.4 x10E3/uL (1.00-4.8) 01/22/25 20:54 Colleton # (Auto) 0.6 x10E3/uL (0.0-0.8) 01/22/25 20:54 [...] days): 4 Documented By: Ángel Minaya MD 01/22/252307 Signed By: 01/22/25 2317 [facility]05-23-2025 Evaluation [...] fibrillation resol phil January 09, 2025 2:26pm [facility] Work Phone: 1(253) 217-126305-23-2025 Evaluation note* Diagnosis Onset Date Resolution Status [...] 21, 2025 1:35pm Chronic kidney disease acute Ju 2024 1:35pm Primary hypertension acute January 21, 2025 1:35pm Chronic heart failure with preserved ejection fraction (HFpEF) resolved January 21, 2025 1:35pm Paroxysmal atrial fibrillation resol phil January 21, 2025 1:35pm Atrial fibrillation with rap id ventricular response acute January 22 2 025 10:45pm [facility] Work Phone: 1(877) 254-299105-23-2025 Evaluation note* Diagnosis Onset Date Resolution Status [...] 21, 2025 1:35pm Chronic kidney disease acute Ju ne 2024 1:35pm Primary hypertension acute January 21, 2025 1:35pm Chronic heart failure with preserved ejection fraction (HFpEF) resolved January 21, 2025 1:35pm Paroxysmal atrial fibrillation resol phil January 21, 2025 1:35pm Acute hypoxic respiratory failure ac [place] January 22, 2025 10:45pm ASHD (arteriosclerotic heart disease) acute January 22, 2025 10:45pm Atrial fibrillation with rap id ventricular response acute January 22, 2 025 10:45pm CHF exacerbation acute January 10:45pm Chronic kidney disease acute Ju ne 2024 10:45pm Diastolic heart failure acute J une 2024 10:45pm Esophageal dysmotility acute Ju ne 2024 10:45pm Hypercholesterolemia acute January 22, 2025 10:45pm Paroxysmal atrial fibrillati on with rapid ventricular response acute January 22, 2025 10:45pm Persistent atrial fibrillation acute January 22, 2025 10:45pm Sick sinus syndrome acute January 22, 2025 10:45pm [facility] Work Phone: 1(867) 375-298405-20-2025 Evaluation + Plan note* Assessment & Plan Note - Nigel El MD - 01/06/2025 9:26 AM EDTAssociated Problem(s): History of repair of hiatal hernia -discussed risks/benefits of surgery--it is high risk due to her age and revisional nature of it -she will talk to her family and let me know if she'd like to proceed with surgery or just live with it [id number] Miscellaneous Notes* Assessment & Plan Note - Nigel El MD - 01/06/2025 9:26 AM EDTAssociated Problem(s): History of repair of hiatal hernia -discussed risks/benefits of surgery--it is high risk due to her age and revisional nature of it -she will talk to her family and let me know if she'd like to proceed with surgery or just live with it documented in this [id number] History of Present illness Narrative* Nigel El MD - 01/06/2025 9:21 AM EDT Phone numbers Preferred Documentation: Mode: Telephone Patient Patient Work Phone: Patient Cell Preferred phone: [phone] Consent: I confirmed patient understanding of the [...] OralBarium Sulfate 1 Tab Route: Oral FINDINGS: [employer] 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 Patient was a No-Show. Please disregard. Called twice, left message to reschedule. Nigel El MD documented in this [id number] Evaluation + Plan note* Assessment & Plan Note - Nigel El MD - 12/30/2024 9:17 AM EDT Associated Problem(s): History of repair of hiatal hernia -Evidence of recurrence on imaging/EGD -discussed non-operative vs operative management, patient elects to [id number] Miscellaneous Notes* Assessment & Plan Note - Nigel El MD - 12/30/2024 9:17 AM EDTAssociated Problem(s): History of repair of hiatal hernia -Evidence of recurrence on imaging/EGD -discussed non-operative vs operative management, patient elects to documented in this [id number] History of Present illness Narrative* Nigel El MD - 12/30/2024 9:13 AM EDT This encounter was opened in error. Patient was a No-Show. Please disregard. Called many times, left message to reschedule. Nigel El MD documented in this [id number] Telephone encounter Note* Telephone Encounter - Domenica Gloria - 12/11/2024 9:38 AM EDT M 12/11 @ 9:30 cancelling appt. Left my number for r/s- SO [id number] Miscellaneous Notes* Telephone Encounter - Domenica Gloria - 12/11/2024 9:38 AM EDT M 12/11 @ 9:30 cancelling appt. Left my number for r/s- SO documented in this [id number] Hospital Discharge instructions* Discharge Instructions* Nigel El [...] please contact the endoscopy center Mon-Fri 7:30am-4pm [phone] or after hours general [facility] number [phone] Severe abdominal pain that keeps getting worse Fever or any other signs of infection Nausea or vomiting blood Seeing persistent blood coming out of your rectum, with or without stool (some streaks or drops of blood may be expected) For any additional questions, please call the endoscopy center at [phone] Follow-up with your Primary Care Provider CC: Primary Care Provider: No primary care provider on file. * Attachments The following attachments cannot be sent through Care Everywhere. * Upper GI Endoscopy Discharge Instructions (Turkish) * Moderate Sedation in Adults Discharge Instructions (Turkish) * FALLSPREVENTION documented in this [id number] Miscellaneous Notes* OP Note - Nigel El MD - 12/08/2024 10:29 AM EDT Images from the original note were not included. Austin Golden 84 year old Surgical Contact Serial Number: [id number] Location: ENDO 04 Date: 12/08/2024 COAGULATING OPERATOR: Nigel El MD ATTENDING:Nigel El MD Procedure(s): ESOPHAGOGASTRODUODENOSCOPY WITH ENDOFLIP INSTRUMENT: Scope #[id number] #[id number] SEDATION: Anesthesia Assisted Pre-Op Diagnosis Codes: * [...] hernia without obstruction or gangrene (Primary Diagnosis) [810033] Hiatal hernia [050363] Gastroesophageal reflux disease without esophagitis [483324] TEE PATH SPECIMEN SENT: no SPECIMEN: None [...] please contact the endoscopy center Mon-Fri 7:30am-4pm [phone] or after hours general [facility] number [phone] Severe abdominal pain that keeps getting worse Fever or any other signs of infection Nausea or vomiting blood Seeing persistent blood coming out of your rectum, with or without stool (some streaks or drops of blood may be expected) For any additional questions, please call the endoscopy center at [phone] Follow-up with your Primary Care Provider CC: Primary Care Provider: No primary care provider on file. PERSON COMPLETING NOTE: Nigel lE MD 12/08/2024 at 10:41 AM Patient meets criteria for discharge/transfer: Nigel El MD * Blood Attestation - Ernesto Parker MD - 12/08/2024 9:57 AM EDT Blood Attestation: ATTESTATION OF INFORMED CONSENT FOR BLOOD: The transfusion of blood and/or blood components were discussed with the patient and/or legal outside energy sales representatives. The risks, benefits and alternatives were reviewed. Questions regarding blood transfusions were answered. The patient /or the patient s legal outside energy sales representatives agree with the plan for transfusion of blood and/or blood components. documented in this [id number] Surgery Surgical operation note* OP Note - Nigel El MD - 12/08/2024 10:29 AM EDT Images from the original note were not included. Austin Golden 84 year old Surgical Contact Serial Number: [id number] Location: ENDO 04 Date: 12/08/2024 COAGULATING OPERATOR: Nigel El MD ATTENDING:Nigel El MD Procedure(s): ESOPHAGOGASTRODUODENOSCOPY WITH ENDOFLIP INSTRUMENT: Scope #[id number] #[id number] SEDATION: Anesthesia Assisted Pre-Op Diagnosis Codes: * [...] hernia without obstruction or gangrene (Primary Diagnosis) [438328] Hiatal hernia [278884] Gastroesophageal reflux disease without esophagitis [396877] TEE PATH SPECIMEN SENT: no SPECIMEN: None [...] following symptoms, please contact the endoscopy center Mon-Sun 7:30am-4pm [phone] or after hours [facility] number [phone] Severe abdominal pain that keeps getting worse Fever or any other signs of infection Nausea or vomiting blood Seeing persistent blood coming out of your rectum, with or without stool (some streaks or drops of blood may be expected) For any additional questions, please call the endoscopy center at [phone] Follow-up with your Primary Care Provider CC: Primary Care Provider: No primary care provider on file. PERSON COMPLETING NOTE: Nigel El MD 12/08/2024 at 10:41 AM Patient meets criteria for discharge/transfer: Nigel El MD [id number] History and physical note* Checo Sotomayor MD - 12/08/2024 10:08 AM EDT Images from the original note were not included. [facility] GENERAL SURGERY H&P Austin Golden [id number] History (HPI) Austin Golden is a 84 [...] El MD at 12/08/2024 10:16 AM EDT [facility] Work Phone: 1(155) 198-296204-21-2025 History and physical note* Checo Sotomayor MD - 12/08/2024 10:08 AM EDT Images from the original note were not included. [facility] GENERAL SURGERY H&P Austin Golden [id number] History (HPI) Austin Golden is a 84 [...] 12/08/2024 10:16 AM EDT documented in this [id number] Progress note* Blood Attestation - Ernesto Parker MD - 12/08/2024 9:57 AM EDT Blood Attestation: ATTESTATION OF INFORMED CONSENT FOR BLOOD: The transfusion of blood and/or blood components were discussed with the patient and/or legal outside energy sales representatives. The risks, benefits and alternatives were reviewed. Questions regarding blood transfusions were answered. The patient /or the patient s legal outside energy sales representatives agree with the plan for transfusion of blood and/or blood components. [facility] Work Phone: 1(609) 967-365204-08-2025 Telephone encounter Note* Telephone Encounter - Aidee [...] your last menstrual period? N/a Protocols used: Gzguteya-X-JP [id number] Miscellaneous Notes* Telephone Encounter - Aidee Pyle [...] your last menstrual period? N/a Protocols used: Mahdicmq-W-FB * Telephone Encounter - Bonnie Clarke RN [...] Triage Nurse. Thank you! documented in this [id number] Telephone encounter Note* Telephone Encounter - Bonnie Clarke RN - 11/25/2024 4:44 PM EDT What is the need: Situation: returning patients call Background: n/a Assessment: pt unable to provide three identifiers, states she is sick and to call back later. Recommendation: no advise given, RN offered to call 911 for patient, pt declined. Bonnie Clarke RN [id number] Telephone encounter Note* Telephone Encounter - Maria Eugenia Quach - 11/25/2024 4:31 PM EDT Caller: The Pt Symptoms: Pt states that she is not able to keep food down. Patient is requesting a call back from the Triage Nurse. Thank you! [id number] Telephone encounter Note* Telephone Encounter - Bonnie [...] last menstrual period? N/a Protocols used: Swallowing Xsxadepndx-U-KA [id number] Miscellaneous Notes* Telephone Encounter - Bonnie Clarke [...] last menstrual period? N/a Protocols used: Swallowing Izmsvrmucb-P-FQ * Telephone Encounter - Cristiana Vieira - 11/11/2024 4:10 PM EDT Caller warm-transferred to [facility] Nurse for Sx/Mike situation of: Food getting stuck in throat [...] Telephone Number: Telephone Information: documented in this [id number] Telephone encounter Note* Telephone Encounter - Cristiana Vieira - 11/11/2024 4:10 PM EDT Caller warm-transferred to [facility] Nurse for Sx/Buzzword situation of: Food getting [...] coming back Caller's Telephone Number: Telephone Information: [id number] History of Present illness Narrative* Maxwell Medrano MD - 10/23/2024 11:00 AM EST CARDIOLOGY OFFICE VISIT CHIEF COMPLAINT Chief Complaint Patient presents with Follow-up HISTORY OF PRESENT ILLNESS HPI 84-year-old female with a past medical history of hypertension, hyperlipidemia. Patient had a long history of atrial fibrillation for which she started seeing [facility] since 2020 aftershe was hospitalized in [facility] for bradycardia. Adjustment of her medical [...] therapy. Patient is being evaluated recently at [facility] for ablation therapy for atrial [...] breath. She ended in the hospital at [facility]. During this admission she was in atrial flutter. Rates were controlled between 60 to 90 bpm. She underwent cardioversion with successful rastafari to sinus rhythm for at least a [...] evaluation. She in the mid admitted to [facility] in June 23, 2024 for shortness of breath. She underwent cardioversion July 02 with successful rastafari of sinus rhythm. Patient states that after [...] She apparently saw a GI service from [facility]. They were planning to do a procedure but because of her symptoms improved she put her procedure on hold. For the last few days she started noticing again problems swallowing. Patient had a device interrogation today. She does have a [employer] medical dual-chamber pacemakerMedtronic with battery longevity 6 years 6 months. [place] of atrial fibrillation 44% of the time. [...] status post dual-chamber pacemaker implanted in 2021 Plan-recommendations Symptoms [place] she is doing much better. She still in atrial fibrillation almost 50% of the time andher symptoms have improved. Again most of the symptoms are related with GI issues. Patient is to have of close follow-up with GI service. From our side, we will continue with PVI scheduled. 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 She does not recall having [...] of Martín Medrano MD. documented in this encounterUnAv[facility] Work Phone: 1(218) 246-829403-06-2025 Instructions* Patient Instructions* Jenna Cheng MA - 10/23/2024 11:00 AM EST PVI ABLATION TO BE DONE BY DR. MEDRANO. PATIENT TO HAVE A CT ANGIO ANYTIME PRIOR TO PROCEDURE. VIRA TO BE DONE THE DAY BEFORE. TAKE ALL MEDICATIONS as USUAL. LABS TO BE DONE 1 WEEK PRIOR. documented in this encounterPaulding [facility] Hospital Work Phone: 1(787) 840-552901-24-2025 Radiology Diagnostic study [facility] [place] [address] [place] [address] CT Scan Report Signed Patient: Austin Golden MR#: [id number] : 1940 Acct:[id number] Age/Sex: 83 / F ADM Date: 5 Loc: ER Room: Type: [facility] ER Attending Dr: Copies to: Gracia [...] Thomas Haskins M.D.09/12/2024 12:37 PM Dictation Location: [place] [address] Transcribed By: JODI 09/12/24 1237 Dictated By: Thomas Haskins II, MD 09/12/24 1233 Signed By: 09/12/24 1237 [facility] Work Phone: 1(444) 460-963801-17-2025 History of Present illness Narrative* Debbie Mac MD - 09/05/2024 11:20 AM EST Blaise Golden is a 83 y.o. [...] Scribe Attestation By signing my name below, Maggy Brown LPN , Scribe attest that this [...] exam, discussion and plan. documented in this encounterPaulding [facility] Hospital Work Phone: 1(978) 186-853301-17-2025 Instructions* Patient Instructions* Maggy Vee LPN - [...] routine Pft 6 months documented in this encounterPaulding [facility] Hospital Work Phone: 1(800) 119-120112-30-2024 History of Present illness Narrative* Katie Yung MD - 08/18/2024 5:01 PM EST Documentation: Mode: Telephone Patient Patient Work Phone: Patient Cell Preferred phone: [phone] Consent: I confirmed patient understanding of the [...] Yung MD Division of Gastroenterology & Hepatology [facility] 08/18/24, 5:01 PM documented in this [id number] History of Present illness Narrative* Katie Yung MD - 07/29/2024 11:34 AM EST This encounter was opened in error. Patient was a No-Show (she was admitted to hospital at time of this appt). Please disregard. documented in this [id number] History of Present illness Narrative* Maxwell Medrano MD - 07/28/2024 11:30 AM EST CARDIOLOGY OFFICE VISIT CHIEF COMPLAINT Chief Complaint Patient presents with Follow-up HISTORY OF PRESENT ILLNESS HPI 83-year-old female with a past medical history of hypertension, hyperlipidemia. Patient had a long history of atrial fibrillation for which she started seeing [facility] [place] since 2020 aftershe was hospitalized in [facility] for bradycardia. Adjustment of her medical [...] therapy. Patient is being evaluated recently at [facility] for ablation therapy for atrial [...] breath. She ended in the hospital at [facility]. During this admission she was in atrial flutter. Rates were controlled between 60 to 90 bpm. She underwent cardioversion with successful rastafari to sinus rhythm for at least a [...] evaluation. She in the mid admitted to [facility] in June 23, 2024 for shortness of breath. She underwent cardioversion July 02 with successful rastafari of sinus rhythm. 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 documented in this encounterPaulding [facility] Hospital Work Phone: 1(245) 546-471612-09-2024 Instructions* Patient Instructions* Raysa Fermin MA - 07/28/2024 11:30 AM EST PLEASE BRING ALL MEDICATION BOTTLES TO OFFICE VISITS. CALL THE OFFICE WITH MEDICATION BOTTLES TO DISCUSS AND UPDATE MEDICATION LIST. CALL [phone] OPTION #4. documented in this encounterPaulding County Hospital Work Phone: 1(814) 649-859512-02-2024 Telephone encounter Note* Telephone Encounter - Stephen Simpson RN - 07/21/2024 12:45 PM EST Situation: Call transfer from [facility] with breathing issues. Attempt to help with EMS but difficulties. Call to EMS but told unable to send and unable to conference call. Patient disconnected. Attempt to call but no answer. Call to [facility] managed by [facility] whom is contracted via [facility]. Patient lives in independent living managed by [facility]. Kwasi [facility] will call to have her checked out. Patient needs to get life alert. Background: See above. Cardiology with . Assessment: Message to Dr. Yung. [facility] Recommendation: [id number] Miscellaneous Notes* Telephone Encounter - Stephen Simpson RN - 07/21/2024 12:45 PM EST Situation: Call transfer from [facility] with breathing issues. Attempt to help with EMS but difficulties. Call to EMS but told unable to send and unable to conference call. Patient disconnected. Attempt to call but no answer. Call to [facility] managed by [facility] whom is contracted via [facility]. Patient lives in independent living managed by [facility]. Kwasi gil will call to have her checked out. Patient needs to get life alert. Background: See above. Cardiology with . Assessment: Message to Dr. Yung. Abimael Recommendation: * Telephone Encounter - Maria Eugenia Quach - 07/21/2024 12:39 PM EST Caller transferred to nurse for sx of: Shortness of Breath, Abdominal or Chest Pain, (Patient is not sure which it is). documented in this [id number] Telephone encounter Note* Telephone Encounter - Maria Eugenia Quach - 07/21/2024 12:39 PM EST Caller transferred to nurse for sx of: Shortness of Breath, Abdominal or Chest Pain, (Patient is not sure which it is). [id number] Evaluation note* Diagnosis Onset Date Resolution Status Admit Date GERD (gastroesophageal reflu x disease) acute July 09 024 2:54pm Primary hypertension acute Nove 2023 2:54pm Chronic heart failure with preserved ejection fraction (HFpEF) resolved July 09 024 2:54pm Paroxysmal atrial fibrillation resolved July 09 024 2:54pm Esophageal obstruction inactive No [email or web address] 2:54pm Stage 3a chronic kidney disease deleted July 09 024 2:54pm Acute kidney injury inactive Decem 2023 [...] resolved July 31 11:23am Esophageal obstruction inactive De cember 12th, 2024 11:23am Stage 3a chronic kidney disease deleted July 31 024 11:23am Abrasion of elbow, left acute J anuary 2024 2:04pm Abrasion of knee, left, infected acute August 27 2:04pm Chest wall contusion acute Gonzalez [email or web address] 2:04pm Acute on chronic heart failure with preserved ejection fraction (HFpEF) acute r y 2024 3:04pm ASHD (arteriosclerotic heart disease) acute September 09 3:04pm Atrial fibrillation acute ry 2024 3:04pm Chest wall contusion acute 2024 3:04pm Chronic kidney disease acute Ja nuary 2024 3:04pm Dysphagia acute September 09, 2024 3:04pm Primary hypertension acute 2024 3:04pm Rectal bleeding acute August 212024 3:04pm [facility] Work Phone: 1(367) 789-662611-13-2024 Progress note Author W Luiz [facility] Note Date/Time July 02, 2024 3:59pm [facility] [address] [place] [address] Cardiology Progress Note Signed Patient: Austin Golden MR#: [id number] : 1940 Acct:[id number] Age/Sex: 83 / F Adm Date: 4 Loc: Room: [address] [place] [address] Type: ADM IN Attending Dr: Shilpa Fenton [...] heart catheterization performed earlier this year at [facility] revealing mild coronary disease and normal left [...] % (Auto) 72.9 Lymph % (Auto) 19.1 [place] % (Auto) 4.8 Eos % (Auto) 1.9 Baso % (Auto) 1.3 Nucleat RBC Rel Count 0.2 Neut # (Auto) 6.7 Lymph # (Auto) 1.7 [place] # (Auto) 0.4 Eos # (Auto) 0.2 [...] risk medication use: Code(s): Z79.899 - Other penitentiary (current) drug therapy (3) Chronic heart failure [...] <Electronically signed by Javed Dee DO> 07/02/[address] [facility] Work Phone: 1(732) 499-439511-13-[address] [place] [address] Cardiology Progress Note Signed Patient: Austin Golden MR#: [id number] : 1940 Acct:[id number] Age/Sex: 83 / F Adm Date: 4 Loc: 3T Room: 5T5855-7 Type: ADM IN Attending Dr: Shilpa Fenton [...] heart catheterization performed earlier this year at [facility] revealing mild coronary disease and normal left [...] % (Auto) 72.9 Lymph % (Auto) 19.1 [place] % (Auto) 4.8 Eos % (Auto) 1.9 Baso % (Auto) 1.3 Nucleat RBC Rel Count 0.2 Neut # (Auto) 6.7 Lymph # (Auto) 1.7 [place] # (Auto) 0.4 Eos # (Auto) 0.2 [...] risk medication use: Code(s): Z79.899 - Other manager terminal (current) drug therapy (3) Chronic heart failure [...] North Note Date/Time July 02, 2024 1:06pm [facility] [address] [place] [address] Hospitalist Progress Note Signed Patient: Austin Golden MR#: [id number] : 1940 Acct:[id number] Age/Sex: 83 / F Adm Date: 4 Loc: Room: [address] [place] [address] Type: ADM IN Attending Dr: Shilpa Fenton [...] Laboratory work up and Imaging studies 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, remains in atrial fibrillation but [...] signed by Shilpa Fenton MD> 07/02/24 1306 [facility] Work Phone: 1(387) 875-589311-13-2024 [place] [address] Hospitalist Progress Note Signed Patient: Austin Golden MR#: [id number] : 1940 Acct:[id number] Age/Sex: 83 / F Adm Date: 4 Loc: 3T Room: [address] [place] [address] Type: ADM IN Attending Dr: Shilpa Fenton [...] Laboratory work up and Imaging studies 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, remains in atrial fibrillation but [...] [facility]11-13-2024 [place] [address] Cardiology Procedure Note Signed Patient: Austin Golden MR#: [id number] : 1940 Acct:[id number] Age/Sex: 83 / F Adm Date: 4 Loc: Room: [address] [place] [address] Type: ADM IN Attending Dr: Shilpa Fenton MD Copies to: DO Jimena Carias MD, [facility] Shilpa Fenton MD~ Cardiology Procedures DATE/PROVIDER Date: 07/02/2024 Jimena Smith MD CARDIOVERSION ASA Classification: 2 Mallampati Score: Class II Pre-Operative Diagnosis: Atrial Fibrillation Post-Operative Diagnosis: Mandaeism of sinus rhythm Procedure Description: After obtaining [...] 60 bpm. 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, remains in atrial fibrillation but [...] Shilpa Fenton MD 07/01/241514 Signed By: 07/01/24 1517 [facility]11-12-2024 Consult note Author Javed Dee [facility] Note Date/Time July 01, 2024 11:50am [facility] [address] [place] [address] Cardiology Consult Note Signed Patient: Austin Golden MR#: [id number] : 1940 Acct:[id number] Age/Sex: 83 / F Adm Date: 4 Loc: Room: [address] [place] [address] Type: ADM IN Attending Dr: Shilpa Fenton [...] heart catheterization performed earlier this year at [facility] revealing mild coronary disease and normal left [...] 400 daily, and repeat cardioversion [facility] Medical History (Updated 07/01/24 @ 11:49 by [...] List clean-up per request of Phys. [facility] Fibromyalgia Problem List clean-up per request of Phys. [facility]HR [facility] Arthritis back and neck Problem List clean-up per request of Phys. EHR [facility] Hypertension Problem List clean-up per request of Phys. EHR [facility] History of cardiac pacemaker in situ Presbyesophagus Hiatal hernia Restless leg Hyperlipemia Problem List clean-up per request of Phys. EHR [facility] CHF (congestive heart failure) Problem List clean-up per request of Phys. EHR [facility] Kidney stones removal of kidney stone R flank in 2021 Problem List clean-up per request of Phys. EHR [facility] Pacemaker Problem List clean-up per request of Phys. EHR [facility] Atrial fibrillation, persistent Problem List clean-up per request of Phys. EHR [facility] COVID-19 2019 Problem List clean-up per request of Phys. EHR [facility] Atrial fibrillation with RVR Problem List clean-up per request of Phys. EHR [facility] Hernia of abdominal wall Problem List clean-up per request of Phys. EHR [facility] Surgical History History of repair of hiatal [...] Social History Comments: independent living at the [facility] Medications and Allergies Allergies No Known [...] Lymph # (Auto) 1.4 1.4 (1.00-4.8) x10E3/uL [place] # (Auto) 0.6 0.5 (0.0-0.8) x10E3/uL Eos [...] risk medication use: Code(s): Z79.899 - Other penitentiary (current) drug therapy (3) Chronic heart failure [...] <Electronically signed by Javed Dee DO> 07/01/[address] [facility] Work Phone: 1([phone]) 890-478311-12-2024 [place] [address] Cardiology Consult Note Signed Patient: Austin Golden MR#: [id number] : 1940 Acct:[id number] Age/Sex: 83 / F Adm Date: 4 Loc: Room: [address] [place] [address] Type: ADM IN Attending Dr: Shilpa Fenton [...] heart catheterization performed earlier this year at [facility] revealing mild coronary disease and normal left [...] 400 daily, and repeat cardioversion [facility] Medical History (Updated 07/01/24 @ 11:49 by Javed Dee, ) Dyspnea on exertion Problem List clean-up per request of Phys. EHR [facility] Anxiety High risk medication use Esophageal dysmotility [...] List clean-up per request of Phys. EHR [facility] Fibromyalgia Problem List clean-up per request of Phys. EHR [facility] Arthritis back and neck Problem List clean-up per request of Phys. EHR [facility] Hypertension Problem List clean-up per request of Phys. EHR [facility] History of cardiac pacemaker in situ Presbyesophagus Hiatal hernia Restless leg Hyperlipemia Problem List clean-up per request of Phys. EHR [facility] CHF (congestive heart failure) Problem List clean-up per request of Phys. EHR [facility] Kidney stones removal of kidney stone R flank in 2021 Problem List clean-up per request of Phys. EHR [facility] Pacemaker Problem List clean-up per request of Phys. EHR [facility] Atrial fibrillation, persistent Problem List clean-up per request of Phys. EHR [facility] COVID-19 2019 Problem List clean-up per request of Phys. EHR [facility] Atrial fibrillation with RVR Problem List clean-up per request of Phys. EHR [facility] Hernia of abdominal wall Problem List clean-up [...] Social History Comments: independent living at the [facility] Medications and Allergies Allergies No Known [...] mg PO DAILY #30 caps 04/01/24 [Rx Pslfqybzl54/11/24] multivitamin 1 tab PO DAILY 04/01/24 [History [...] Lymph # (Auto) 1.4 1.4 (1.00-4.8) x10E3/uL [place] # (Auto) 0.6 0.5 (0.0-0.8) x10E3/uL Eos [...] risk medication use: Code(s): Z79.899 - Other penitentiary (current) drug therapy (3) Chronic heart failure [...] North Note Date/Time June 30, 2024 7:23pm [facility] [address] [place] [address] Hospitalist H&P Signed Patient: Austin Golden MR#: [id number] : 1940 Acct:[id number] Age/Sex: 83 / F Adm Date: 4 Loc: Room: [address] [place] [address] Type: ADM IN Attending Dr: Shilpa Fenton [...] in the computer system reviewed [facility] Medical History Anxiety High risk medication use [...] List clean-up per request of Phys. EHR [facility] CHF (congestive heart failure) Problem List clean-up per request of Phys. EHR [facility] Kidney stones removal of kidney stone R flank in 2021 Problem List clean-up per request of Phys. EHR [facility] Pacemaker Problem List clean-up per request of Phys. EHR [facility]te Atrial fibrillation, persistent Problem List clean-up per request of Phys. EHR [facility] COVID-19 2019 Problem List clean-up per request of Phys. EHR [facility] Atrial fibrillation with RVR Problem List clean-up per request of Phys. EHR [facility] Hernia of abdominal wall Problem List clean-up per request of Phys. EHR [facility] Surgical History History of repair of hiatal hernia (~2014) History of left heart catheterization (~03/2024) LHC: LAD 40-50%, diagonal 70%, RCA 40-50%, normal LVEF - 03/2024 History of cholecystectomy 2022 History of colonoscopy 2011 History of cardiac catheterization Problem List clean-up per request of Phys. EHR [facility] H/O eye surgery right eye Problem List clean-up per request of Phys. EHR [facility] History of cataract surgery marybeth eye Problem List clean-up per request of Phys. EHR [facility] History of appendectomy Problem List clean-up per request of Phys. EHR [facility] History of tonsillectomy Problem List clean-up per request of Phys. EHR [facility] H/O foot surgery left Problem List clean-up per request of Phys. EHR [facility] History of hysterectomy Problem List clean-up per request of Phys. EHR [facility] Family History Father Heart & renal disease, hypertensive, with heart fail/chron kidney dis Depression Sister Heart disease Mother Brain tumor Father Mother Social History Smoking Status: Never smoker Substance Use Type: None Substance Abuse Comment: etoh occasional Social History Comments: independent living at the [facility] Medications and Allergies Allergies No Known [...] % (Auto) 14.0 % (.) 06/30/24 15:04 [place] % (Auto) 5.9 % (.) 06/30/24 15:04 Eos % (Auto) 1.5 % (.) 06/30/24 15:04 Baso % (Auto) 0.8 % (.) 06/30/24 15:04 Nucleat RBC Rel Count 0.1 /100 WBC (0-0.5) 06/30/24 15:04 Neut # (Auto) 8.1 x10E3/uL (1.8-7.7) H 06/30/24 15:04 Lymph # (Auto) 1.4 x10E3/uL (1.00-4.8) 06/30/24 15:04 [place] # (Auto) 0.6 x10E3/uL (0.0-0.8) 06/30/24 15:04 [...] Shilpa Fenton MD 06/30/24 1833 Signed By: <Electronically signed by Shilpa Fenton MD> 06/30/24 192 [facility] Work Phone: 1(406) 280-330711-11-2024 Evaluation note* Diagnosis Onset Date Resolution Status [...] 09 024 2:54pm Primary hypertension acute Nove mber 2023 2:54pm Stage 3a chronic kidney disease acut e July 09, 2024 2:54pm Chronic heart failure with preserved ejection fraction (HFpEF) resolved July 09 024 2:54pm Paroxysmal atrial fibrillation resol phil July 09, 2024 2:54pm Esophageal obstruction inactive No vember 2024 2:54pm Acute kidney injury inactive Decem 2023 9:28pm Atrial fibrillation with rap id ventricular response inactive July 9:28pm Atypical chest pain inactive Decem 2023 9:28pm Dysphagia inactive July 21, 2024 9:28pm Elevated troponin inactive Decembe r 2023 9:28pm Esophageal obstruction inactive 2023 9:28pm GERD (gastroesophageal reflu x disease) acute July 31 024 11:23am Primary hypertension acute Dece mb2023 11:23am Stage 3a chronic kidney disease acut e July 31, 2024 11:23am Chronic heart failure with preserved ejection fraction (HFpEF) resolved July 31 024 11:23am Paroxysmal atrial fibrillation resol phil July 31, 2024 11:23am Esophageal obstruction inactive 2023 11:23am Abrasion of elbow, left acute J anuary 2024 2:04pm Abrasion of knee, left, infected acu te August 27, 2024 2:04pm Chest wall contusion acute Gonzalez abdoul 2024 2:04pm [facility] Work Phone: 1(606) 347-755011-11-2024 Evaluation note* Diagnosis Onset Date Resolution Status [...] 2:54pm Primary hypertension acute Nove mb2023 2:54pm Chronic heart failure with preserved ejection fraction (HFpEF) resolved July 09 024 2:54pm Paroxysmal atrial fibrillation resol phil July 09, 2024 2:54pm Esophageal obstruction inactive No 2023 2:54pm Stage 3a chronic kidney disease [...] (gastroesophageal reflu x disease) acute July 31 024 11:23am Primary hypertension acute Dece mber 2023 11:23am Chronic heart failure with preserved ejection fraction (HFpEF) resolved July 31 024 11:23am Paroxysmal atrial fibrillation resol phil July 31, 2024 11:23am Esophageal obstruction inactive 2023 11:23am Stage 3a chronic kidney disease steven anne marie July 31, 2024 11:23am Abrasion of elbow, left acute J anuary 2024 2:04pm Abrasion of knee, left, infected acu te August 27, 2024 2:04pm Chest wall contusion acute Gonzalez abdoul2024 2:04pm Acute on chronic heart failu re with preserved ejection fraction (HFpEF) acute September 09 3:04pm ASHD (arteriosclerotic heart disease) acute September 09 3:04pm Atrial fibrillation acute Janua ry 2024 3:04pm Chest wall contusion acute Gonzalez abdoul2024 3:04pm Chronic kidney disease acute Ja nuary 2024 3:04pm Dysphagia acute September 09, 2024 3:04pm Primary hypertension acute 2024 3:04pm Rectal bleeding acute August 212024 3:04pm [facility] Work Phone: 1(109) 390-155611-11-2024 [place] [address] Hospitalist H&P Signed Patient: Austin Golden MR#: [id number] : 1940 Acct:[id number] Age/Sex: 83 / F Adm Date: 4 Loc: 3T Room: [address] [place] [address] Type: ADM IN Attending Dr: Shilpa Fenton [...] in the computer system reviewed [facility] Medical History Anxiety High risk medication use [...] List clean-up per request of Phys. EHR [facility] Family History Father Heart & renal disease, hypertensive, with heart fail/chron kidney dis Depression Sister Heart disease Mother Brain tumor Father Mother Social History Smoking Status: Never smoker Substance Use Type: None Substance Abuse Comment: etoh occasional Social History Comments: independent living at the [facility] Medications and Allergies Allergies No Known [...] mg PO DAILY #30 caps 04/01/24 [Rx Akpdsneuh22/11/24] multivitamin 1 tab PO DAILY 04/01/24 [History [...] % (Auto) 14.0 % (.) 06/30/24 15:04 [place]leton % (Auto) 5.9 % (.) 06/30/24 15:04 Eos % (Auto) 1.5 % (.) 06/30/24 15:04 Baso % (Auto) 0.8 % (.) 06/30/24 15:04 Nucleat RBC Rel Count 0.1 /100 WBC (0-0.5) 06/30/24 15:04 Neut # (Auto) 8.1 x10E3/uL (1.8-7.7) H 06/30/24 15:04 Lymph # (Auto) 1.4 x10E3/uL (1.00-4.8) 06/30/24 15:04 [place]leton # (Auto) 0.6 x10E3/uL (0.0-0.8) 06/30/24 15:04 [...] Shilpa Fenton MD 06/30/24 183 Signed By: 06/30/241922 [facility]11-11-2024 Radiology Diagnostic study note [facility] Main [place] [address] [place] [address] CT Scan Report Signed Patient: Austin Golden MR#: [id number] : 1940 Acct:[id number] Age/Sex: 83 / F ADM Date: 4 Loc: ER Room: Type: [facility] ER Attending Dr: Copies to: Vic [...] Juanito Borja M.D.06/30/2024 3:47 PM Dictation Location: [place] [address] Transcribed By: [facility] 06/30/24 154 Dictated By: Juanito Borja DO 06/30/24 154 Signed By: 06/30/24 1547 [facility]11-04-2024 NoteCalled radiology ext [phone]. Requested soemone in the department to reach out to the patient to discuss what is expected prior to and in the procedure for timed barium esophogram. Staffing took the number and agreed to abhinav the patient.[facility] [employer] [id number] Telephone encounter Note* Telephone Encounter - Isabel Menard RN - 06/23/2024 11:23 AM EST Called radiology ext [phone]. Requested soemone in the department to reach out to the patient to discuss what is expected prior to and in the procedure for timed barium esophogram. Staffing took the number and agreed to abhinav the patient. [id number] Miscellaneous Notes* Telephone Encounter - Isabel Menard RN - 06/23/2024 11:23 AM EST Called radiology ext [phone]. Requested soemone in the department to reach [...] placed for timed barium esophagogram Jazmin العلي [address] [place], [place] [address] option #[address] العلي's nurse [...] be scheduled. Thank you documented in this [id number] NotePt has questions about her upcoming procedure 06/26/2024 Would like to discuss with provider Telephone Information: [facility] [id number] Telephone encounter Note* Telephone Encounter - Cristiana Vieira - 06/23/2024 10:19 AM EST Pt has questions about her upcoming procedure 06/26/2024 Would like to discuss with provider Telephone Information: [id number] Telephone encounter Note* Telephone Encounter - Cristiana Vieira - 06/13/2024 4:[address] العلي office calling waiting for order to be placed for timed barium esophagogram Jazmin العلي [address] [place] [phone] option #[address] العلي's nurse line Leela Encounter dated 05/29/[address] Yung Recommendations: Obtain timed barium esophagram or endoflip to confirm diagnosis. Dr Yung recommended pt has this procedure Telephone Information: [id number] NoteDrMelita العلي's office call regarding results from patient's procedure on 05/29/24.. Dr. العلي states recommendations as follows: Obtain timed barium esophagram or endoflip to confirm diagnosis, would like order to be placed so that patient may have this done. Please call patient once order is placed to be scheduled. Thank youThe Na[employer]10-23-2024 Telephone encounter Note* Telephone Encounter - Evelyn [...] is placed to be scheduled. Thank you [id number] Evaluation note* Diagnosis Onset Date Resolution Status Admit Date Acute on chronic heart failu re with preserved ejection fraction (HFpEF) acute June 10 3:15pm Esophageal dysmotility acute Oc tober 2023 3:15pm GERD (gastroesophageal reflu x disease) acute June 10 3:15pm Primary hypertension acute Octo 2023 3:15pm [...] r 2023 9:28pm Esophageal obstruction inactive De cem2023 9:28pm GERD (gastroesophageal reflu x disease) acute July 31, 2 024 11:23am Primary hypertension acute Dece mber 2023 11:23am Stage 3a chronic kidney disease acut e July 31, 2024 11:23am Chronic heart failure with preserved ejection fraction (HFpEF) resolved July 31, 2 024 11:23am Paroxysmal atrial fibrillation resol phil July 31, 2024 11:23am Esophageal obstruction inactive De 2023 11:23am [facility] Work Phone: 1(788) 920-294610-22-2024 Evaluation note* Diagnosis Onset Date Resolution Status [...] 30, 2 024 5:45pm Elevated troponin resolved [facility] r 2023 5:45pm High risk medication use [...] No vem2023 2:54pm Acute kidney injury inactive Decem 2023 9:28pm Atrial fibrillation with rap id ventricular response inactive July 9:28pm Atypical chest pain inactive Decem 2023 9:28pm Dysphagia inactive July 21, 2024 9:28pm Elevated troponin inactive Decembe r 2023 9:28pm Esophageal obstruction inactive De 2023 9:28pm GERD (gastroesophageal reflu x disease) acute July 31, 2 024 11:23am Primary hypertension acute Dece mber 2023 11:23am Stage 3a chronic kidney disease acut e July 31, 2024 11:23am Chronic heart failure with preserved ejection fraction (HFpEF) resolved July 31, 2 024 11:23am Paroxysmal atrial fibrillation resol phil July 31, 2024 11:23am Esophageal obstruction inactive De cember 2023 11:23am Abrasion of elbow, left acute J anuary 2024 2:04pm Abrasion of knee, left, infected acu te August 27, 2024 2:04pm Chest wall contusion acute Gonzalez abdoul 2024 2:04pm [facility] Work Phone: 1([phone]) 188-412510-22-2024 Evaluation note* Diagnosis Onset Date Resolution Status [...] acute Stage 3a chronic kidney disease acute [facility] Work Phone: 1(543) 549-448610-17-2024 History of Present illness Narrative* Maxwell Medrano MD - 06/05/2024 12:00 PM EDT CARDIOLOGY OFFICE VISIT CHIEF COMPLAINT Chief Complaint Patient presents with Follow-up HISTORY OF PRESENT ILLNESS HPI 83-year-old female with a past medical history of hypertension, hyperlipidemia. Patient had a long history of atrial fibrillation for which she started seeing [facility] since 2020 aftershe was hospitalized in [facility] for bradycardia. Adjustment of her medical [...] therapy. Patient is being evaluated recently at [facility] for ablation therapy for atrial [...] breath. She ended in the hospital at [facility]. During this admission she was in atrial flutter. Rates were controlled between 60 to 90 bpm. She underwent cardioversion with successful rastafari to sinus rhythm for at least a [...] GI service with upper GI scope at [facility] whofound his scope difficult to pass [...] of Martín Medrano MD. documented in this [facility] Work Phone: 1(605) 524-687910-17-2024 Instructions* Patient Instructions* Nesha Wilson LPN - 06/05/2024 12:[address] Medrano wants pt to see Katie Yung MD [facility] for Gastrointestinal for weakness, vomiting and unable to eat. [employer] to help schedule. If you continue not to feel good going into the weekend and you are short of breath and not feelingwell go to [facility]. Dr. Medrano is industrial production manager this weekend. He said if you do go to [facility] to call [phone] and speak with our on-call team and tell them to notify Dr. Medrano you are going to hospital so he can see you. DID YOU KNOW We have a pharmacy here in the [facility]. They can fill all prescriptions, not just cardiac medications. Prescriptions from other pharmacies can easily be transferred to the pharmacy by the pharmacist on site. pharmacies offer FREE HOME DELIVERY on medications to anywherein [place]. They can sync your medications. Typically prescriptions can be ready in 10 - 15 minutes. If pharmacy is unable to fill your prescription or if cost is more than your paying now the Pharmacist can easily transfer back to your Pharmacy of choice. Pharmacy phone # [phone]. Please bring all medicines, vitamins, and herbal supplements with you in original bottles to every appointment!!!! Prescriptions will not be filled unless you are compliant with your follow up appointments or have a follow up appointment scheduled as per instruction of your physician. Refills should be requested at the time of your visit. documented in this [facility] Work Phone: 1(471) 144-985210-10-2024 Hospital Discharge instructions* Discharge Instructions* Kaylah Ledesma [...] PCP. 3. F/u with Amna Powell at [facility] * Attachments The following attachments cannot be sent through Care Everywhere. * Upper GI Endoscopy Discharge Instructions (Turkish) * Esophageal Manometry (Turkish) * Moderate Sedation in Adults Discharge Instructions (Turkish) * FALLSPREVENTION documented in this [id number] Surgery Surgical operation note* OP Note - [...] undergo sedation with the assistance of anesthesia physician/BARREL LAPPER team. Please see corresponding note for full details. Katie Yung MD 05/29/24 1:08 PM Austin Golden 83 year old Surgical Contact Serial Number: [id number] Location: ENDO 02 Date: 05/29/2024 COAGULATING OPERATOR: Katie Yung MD ATTENDING:Katie Yung MD Procedure(s): [...] 50cm. Taped to right cheek. Esophageal dysphagia [[id number]] TEE PATH SPECIMEN SENT: no SPECIMEN: None [...] PCP. 3. F/u with Amna Powell at [facility] CC: Primary Care Provider: No primary care provider on file. PERSON COMPLETING NOTE: Katie Yung MD 05/29/2024 at 1:08 PM Patient meets criteria for discharge/transfer: Katie Yung MD [id number] Miscellaneous Notes* OP Note - Katie Yung [...] undergo sedation with the assistance of anesthesia physician/BARREL LAPPER team. Please see corresponding note for full details. Katie Yung MD 05/29/24 1:08 PM Austin Golden 83 year old Surgical Contact Serial Number: [id number] Location: ENDO 02 Date: 05/29/2024 COAGULATING OPERATOR: Katie Yung MD ATTENDING:Katie Yung MD Procedure(s): [...] 50cm. Taped to right cheek. Esophageal dysphagia [[id number]] TEE PATH SPECIMEN SENT: no SPECIMEN: None [...] PCP. 3. F/u with Amna Powell at [facility] CC: Primary Care Provider: No primary care provider on file. PERSON COMPLETING NOTE: Katie Yung MD 05/29/2024 at 1:08 PM Patient meets criteria for discharge/transfer: Katie Yung MD documented in this [id number] Evaluation note* Diagnosis Onset Date Resolution Status [...] Cirrhosis acute GERD (gastroesophageal reflux disease) acute [facility] Work Phone: 1(345) 168-618109-26-2024 NoteGI Motility Lab Note Pre-procedure: Patient verified [...] and Signs of infection such as feverThe Med[employer]warewhat3words [id number] Evaluation note* Diagnosis Onset Date Resolution Status [...] GERD (gastroesophageal reflux disease) acute Vomiting acute [facility] Work Phone: 1(561) 511-677009-09-2024 History of Present illness Narrative* Maxwell Medrano MD - 04/28/2024 11:30 AM EDT CARDIOLOGY OFFICE VISIT CHIEF COMPLAINT Chief Complaint Patient presents with Follow-up 2 WEEK HISTORY OF PRESENT ILLNESS HPI 83-year-old female with a past medical history of hypertension, hyperlipidemia. Patient had a long history of atrial fibrillation for which she started seeing [facility] since 2020 aftershe was hospitalized in [facility] for bradycardia. Adjustment of her medical [...] therapy. Patient is being evaluated recently at [facility] for ablation therapy for atrial [...] breath. She ended in the hospital at [facility]. During this admission she was in atrial flutter. Rates were controlled between 60 to 90 bpm. She underwent cardioversion with successful rastafari to sinus rhythm for at least a [...] today during this evaluation dual-chamber pacemaker [employer] with battery longevity 6.3 years. [place] of atrial fibrillation 58% of the time [...] of Martín Medrano MD. [facility] Work Phone: 1([phone]) 129-160909-09-2024 Instructions* Patient Instructions* Nesha Wilson LPN - 04/28/2024 11:30 AM EDT Increase Amiodarone to 200 mg twice daily x 1 week,then decrease to 1 tablet daily thereafter. DID YOU KNOW We have a pharmacy here in the [facility]. They can fill all prescriptions, not just cardiac medications. Prescriptions from other pharmacies can easily be transferred to the pharmacy by the pharmacist on site. pharmacies offer FREE HOME DELIVERY on medications to anywherein [place]. They can sync your medications. Typically prescriptions can be ready in 10 - 15 minutes. If pharmacy is unable to fill your prescription or if cost is more than your paying now the Pharmacist can easily transfer back to your Pharmacy of choice. Pharmacy phone # [phone]. Please bring all medicines, vitamins, and herbal supplements with you in original bottles to every appointment!!!! Prescriptions will not be filled unless you are compliant with your follow up appointments or have a follow up appointment scheduled as per instruction of your physician. Refills should be requested at the time of your visit. [facility] Work Phone: 1(658) 942-152509-05-2024 History of Present illness Narrative* Debbie Mac MD - 04/24/2024 3:10 PM EDT Subjective Austin Golden is a 83 y.o. [...] Scribe Attestation By signing my name below, Maggy Brown LPN , Scribe attest that this documentation has been prepared under the direction and in the presence of MD Bo. Provider Attestation - Scribe documentation All medical record entries made by the Scribe were at my direction and personally dictated by me. Bola reviewed the chart and agree that the record accurately reflects my personal performance of the history, physical exam, discussion and plan. documented in [facility] Work Phone: 1(437) 619-226209-05-2024 Instructions* Patient Instructions* Maggy Vee LPN - [...] take amio 2 weeks documented in [facility] Work Phone: 1(854) 244-324008-30-2024 Evaluation note* Diagnosis Onset Date Resolution Status Admit Date Dyspepsia acute April 18, 024 10:03am GERD [...] May 08, 2024 11:45am Primary hypertension acute Apr4 11:45am Stage 3a chronic kidney disease acut e May 08, 2024 11:45am Dyspepsia acute April 9:22am Esophageal dysmotility acute Se ptember 2023 9:22am GERD (gastroesophageal reflu x disease) acute May 19, 2024 9:22am Acute on chronic heart failu re with preserved ejection fraction (HFpEF) acute June 10 3:15pm Esophageal dysmotility acute Oc tob2023 3:15pm GERD (gastroesophageal reflu x disease) acute June 10 3:15pm Paroxysmal atrial fibrillation acute June 10, 2024 3:15pm Primary hypertension acute 2023 3:15pm Stage 3a chronic kidney disease acut e June 10, 2024 3:15pm Acute electrocardiogram changes acut e June 30, 2024 5:45pm Chest pain acute June 30, 2024 5:45pm Chronic heart failure with preserved ejection fraction (HFpEF) acute June 30, 2 024 5:45pm Elevated troponin acute Novembe 2023 5:45pm High risk medication use acute June 30, 2024 5:45pm Paroxysmal atrial fibrillation acute June 30, 2024 5:45pm Chronic heart failure with preserved ejection fraction (HFpEF) acute July 09, 2 024 2:54pm Esophageal obstruction acute No vember 2023 2:54pm GERD (gastroesophageal reflu x disease) acute July 09, 2 024 2:54pm Paroxysmal atrial fibrillation acute July 09, 2024 2:54pm Primary hypertension acute Nove 2023 2:54pm Stage 3a chronic kidney disease acut e July 09, 2024 2:54pm [facility] Work Phone: 1([phone]) 709-901108-30-2024 Evaluation note* Diagnosis Onset Date Resolution Status [...] GERD (gastroesophageal reflux disease) acute Vomiting acute [facility] Work Phone: 1(940) 974-790608-29-2024 History of Present illness Narrative* Maxwell Medrano MD - 04/17/2024 10:15 AM EDT CARDIOLOGY OFFICE VISIT CHIEF COMPLAINT Chief Complaint Patient presents with Hospital Follow-up CARDIOVERSION 03/25/24 HISTORY OF PRESENT ILLNESS HPI 83-year-old female with a past medical history of hypertension, hyperlipidemia. Patient had a long history of atrial fibrillation for which she started seeing [facility] since 2020 aftershe was hospitalized in [facility] for bradycardia. Adjustment of her medical [...] therapy. Patient is being evaluated recently at [facility] for ablation therapy for atrial [...] fibrillation for which she started seeing [facility] since 2020 aftershe was hospitalized in [facility] for bradycardia. Adjustment of her medical [...] therapy. Patient is being evaluated recently at [facility] for ablation therapy for atrial [...] breath. She ended in the hospital at [facility]. During this admission she was in atrial flutter. Rates were controlled between 60 to 90 bpm. She underwent cardioversion with successful rastafari to sinus rhythm for at least a [...] maintaining sinus rhythm during recent admission at [facility] for almost a day and a half [...] to prepare this document. documented in [facility]Paul[facility] Work Phone: 1(700) 653-106108-29-2024 Instructions* Patient Instructions* Raysa Fermin MA - 04/17/2024 10:15 AM EDT TAKE SOTALOL UINTIL SUNDAY. NO SOTALOL ON SUNDAY AND SUNDAY START AMIODARONE 200 MG ON SUNDAY- TAKE 1 TABLET TWICE DAILY FOR ONE WEEK. THEN TAKE 1 TABLET THEREAFTER. HAVE LABS DONE BEFORE NEXT OFFICE VISIT (NON FASTING) documented in this [facility]Paul[facility] Work Phone: 1(422) 303-743908-20-2024 Evaluation note* Diagnosis Onset Date Resolution Status Admit Date Acute on chronic heart failu re with preserved ejection fraction (HFpEF) acute April 08 3:40pm GERD (gastroesophageal reflu x disease) acute April 08 3:40pm Paroxysmal atrial fibrillation acute April 08, 2024 3:40pm Primary hypertension acute Augu 2023 3:40pm Stage 3a chronic kidney disease [...] Dyspepsia acute April 9:22am Esophageal dysmotility acute pt2023 9:22am GERD (gastroesophageal reflu x disease) acute May 19, 2024 9:22am Acute on chronic heart failu re with preserved ejection fraction (HFpEF) acute June 10 3:15pm Esophageal dysmotility acute Oc 2023 3:15pm GERD (gastroesophageal reflu x disease) acute June 10 3:15pm Paroxysmal atrial fibrillation acute June 10, 2024 3:15pm Primary hypertension acute 2023 3:15pm Stage 3a chronic kidney disease acut e June 10, 2024 3:15pm Acute electrocardiogram changes acut e June 30, 2024 5:45pm Chest pain acute June 30, 2024 5:45pm Elevated troponin acute Novem2023 5:45pm [facility] Work Phone: 1([phone]) 904-319808-20-2024 Evaluation note* Diagnosis Onset Date Resolution Status [...] 08, 2024 11:45am Primary hypertension acute Sept emb2023 11:45am Stage 3a chronic kidney disease acut [...] 30, 2 024 5:45pm Elevated troponin acute Novem2023 5:45pm High risk medication use acute June 30, 2024 5:45pm Paroxysmal atrial fibrillation acute June 30, 2024 5:45pm [facility] Work Phone: 1([phone]) 927-985707-11-2024 History of Present illness Narrative* Maxwell Medrano MD - 02/28/2024 11:15 AM EDT CARDIOLOGY OFFICE VISIT CHIEF COMPLAINT Chief Complaint Patient presents with Follow-up HISTORY OF PRESENT ILLNESS HPI 83-year-old female with a past medical history of hypertension, hyperlipidemia. Patient had a long history of atrial fibrillation for which she started seeing [facility] since 2020 aftershe was hospitalized in [facility] for bradycardia. Adjustment of her medical [...] therapy. Patient is being evaluated recently at [facility] for ablation therapy for atrial fibrillation. She also has a long history of shortness of breath but for the last 2 to 3 monthsshjovani has been having worsening episodes at a [...] be delivered with unsuccessful termination of thisarrhythmia. [place] of atrial fibrillation approximately 76% of the [...] furosemide (LASIX) 20 mg, oral, Daily HYDROcodone-acetaminophen (Thrall) 10-325 mg tablet 1 tablet, oral, Daily [...] of Martín Medrano MD. documented in [facility]Paul[facility] Work Phone: 1(160) 553-880007-11-2024 Instructions* Patient Instructions* Nesha Wilson LPN - [...] time of your visit. documented in this [facility]Paul[facility] Work Phone: 1(162) 834-780607-08-2024 History of Present illness Narrative* Debbie Mac [...] mouth once daily., Disp: , Rfl: HYDROcodone-acetaminophen (Thrall) 10-325 mg tablet, Take 1 tablet by [...] Attestation By signing my name below, I, Anatoly Ferrara LPN attest that this documentation has been prepared [...] exam, discussion and plan. documented in this [facility] Work Phone: 1([phone]) 118-410207-08-2024 Instructions* Patient Instructions* Anju Woods LPN - [...] through Care Everywhere. * Heart Healthy Diet (Turkish) documented in this encounterPaul[facility] Work Phone: 1([phone]) 456-706906-04-2024 History of Present illness Narrative* Millie Sneed [...] m (4' 11 ) documented in this [facility]Paul[facility] Work Phone: 1(564) 485-693406-02-2024 Progress note Author Christopher Richardson [facility] January 20, 2024 1:46pm Note Date/Time January 20, 2024 1:46p yaquelin [facility] [address] [place] [address] Cardiology Progress Note Signed Patient: Austin Golden MR#: [id number] : 1940 Acct:[id number] Age/Sex: 83 / F Adm Date: 4 Loc: 3T Room: 1F1484-4 Type: ADM IN Attending Dr: Izzy Capps [...] signed by MD Christopher Richardson> 01/20/24 1346 [facility] Work Phone: 1(656) 710-956706-01-2024 Progress note Author Izzy Capps [facility] January 19, 2024 6:48pm Note Date/Time January 19, 2024 5:02p m [facility] [address] [place] [address] Hospitalist Progress Note Signed Patient: Austin Golden MR#: [id number] : 1940 Acct:[id number] Age/Sex: 83 / F Adm Date: 4 Loc: Room: [address] [place] [address] Type: ADM IN Attending Dr: Izzy Capps [...] 1,000 Ml IV 01/17/25 15:29 75 mls/hr .[id number] KWAN Administration Diltiazem HCl 100 mg in [...] <Electronically signed by Izzy Capps MD> 01/19/24 9005 [facility] Work Phone: 1(773) 120-336806-01-2024 Consult note Author Christopher Richardson [facility] January 19, 2024 12:11pm Note Date/Time January 19, 2024 12:08 pm [facility] [address] [place] [address] Cardiology Consult Note Signed Patient: Austin Golden MR#: [id number] : 1940 Acct:[id number] Age/Sex: 83 / F Adm Date: 4 Loc: Room: [address] [place] [address] Type: ADM IN Attending Dr: Izzy Capps [...] and no additional complaints, except as documented [facility] Medical History Chronic heart failure with preserved [...] List clean-up per request of Phys. [facility]HR [facility] 2019 Problem List clean-up per request of Phys. EHR Cmte Atrial fibrillation with RVR Problem List clean-up per request of Phys. EHR Cmte Hernia of abdominal wall Problem List clean-up per request of Phys. EHR [facility] Surgical History History of cholecystectomy 2022 History of colonoscopy 2011 History of cardiac catheterization Problem List clean-up per request of Phys. EHR [facility] H/O eye surgery right eye Problem List clean-up per request of Phys. EHR [facility] History of cataract surgery marybeth eye Problem List clean-up per request of Phys. EHR [facility] History of appendectomy Problem List clean-up per request of Phys. EHR [facility] History of tonsillectomy Problem List clean-up per request of Phys. EHR [facility] H/O foot surgery left Problem List clean-up per request of Phys. EHR [facility] History of hysterectomy Problem List clean-up per request of Phys. EHR [facility] Family History Father Heart & renal disease, hypertensive, with heart fail/chron kidney dis Depression Sister Heart disease Mother Brain tumor Father Mother Social History Smoking Status: Never smoker Substance Use Type: None Substance Abuse Comment: etoh occasional Social History Comments: independent living at the [facility] Medications and Allergies Allergies Sulfa (Sulfonamide [...] A 2,500 unit-vit C 100 mg-biotin 2,500 evu-gafk-eztvif capsule (Ejed-Mfgk-Tbyr (vit A,K-myivaq-Dw-Cu)) 1 cap PO DAILY 01/18/24 [History Confirmed [...] x10E3/uL Lymph # (Auto) 1.0 (1.00-4.8) x10E3/uL [place] # (Auto) 0.8 (0.0-0.8) x10E3/uL Eos # [...] 1000 ,000 ml @ 75 mls/hr IV .[id number] [facility] Rx#:[id number] dilTIAZem 100 MG -*NaCl* 100 mg 100 / 100 In 100 ml @ 5 MG/HR 5 mls/hr IV .Q20H [facility] Rx#:[id number] Oral 200 / 200 Other: # Voids 1 # Unmeasured Voids 1 # Bowel Movements 0 Weight 69.9 kg 69.7 kg Date of Last Bowel Movement 01/18/24 01/18/24 Patient Weight 01/19/24 23:59 Weight 69.7 kg Lab 01/18/24 15:40 PT 16.8 H INR 1.5 APTT 31.3 A&P - Cardiology (1) Atrial fibrillation with RVR: Assessment/Problem Details: Symptomatic. Believe the rastafari of maintenance of sinus rhythm is of [...] signed by MD Christopher Richardson> 01/19/[address] [facility] Work Phone: 1([phone]) 209-979606-01-2024 History and physical note Author Izzy Capps [facility] January 19, 2024 1:25am Note Date/Time January 18, 2024 8:45p m [facility] [address] [place] [address] Hospitalist H&P Signed Patient: Austin Golden MR#: [id number] : 1940 Acct:[id number] Age/Sex: 83 / F Adm Date: 4 Loc: 3T Room: [address] [place] [address] Type: ADM IN Attending Dr: Izzy Capps [...] with:?the medical team, the patient [facility] Medical History Chronic heart failure with preserved [...] List clean-up per request of Phys. EHR [facility] Surgical History History of cholecystectomy 2022 History [...] List clean-up per request of Phys. EHR [facility] Family History Father Heart & renal disease, hypertensive, with heart fail/chron kidney dis Depression Sister Heart disease Mother Brain tumor Father Mother Social History Smoking Status: Never smoker Substance Use Type: None Substance Abuse Comment: etoh occasional Social History Comments: independent living at the [facility] in [facility] Medications and Allergies Allergies Sulfa [...] A 2,500 unit-vit C 100 mg-biotin 2,500 kqd-fvtp-wailwn capsule (Trjc-Wsfh-Qdgq (vit A,Z-jzbhxq-Ad-Cu)) 1 cap PO DAILY 01/18/24 [History Confirmed [...] % (Auto) 9.2 % (.) 01/18/24 15:40 Colleton % (Auto) 7.6 % (.) 01/18/24 15:40 Eos % (Auto) 1.2 % (.) 01/18/24 15:40 Baso % (Auto) 0.5 % (.) 01/18/24 15:40 Nucleat RBC Rel Count 0.1 /100 WBC (0-0.5) 01/18/24 15:40 Neut # (Auto) 8.5 x10E3/uL (1.8-7.7) H 01/18/24 15:40 Lymph # (Auto) 1.0 x10E3/uL (1.00-4.8) 01/18/24 15:40 [place] # (Auto) 0.8 x10E3/uL (0.0-0.8) 01/18/24 15:40 [...] signed by Izzy Capps MD> 01/19/24 012 [facility] Work Phone: [phone] History of Present illness Narrative* Debbie Mac [...] mouth once daily., Disp: , Rfl: HYDROcodone-acetaminophen (Thrall) 10-325 mg tablet, Take 1 tablet by [...] vessel coronary [facility] [phone] Instructions* Patient Instructions* Maggy Vee LPN - [...] Maalox also. Pacemaker [facility] Work Phone: [phone] History of Present illness Narrative* Debibe Mac MD - 05/31/2023 3:00 PM EDT [...] mouth once daily., Disp: , Rfl: HYDROcodone-acetaminophen (Thrall) 10-325 mg tablet, Take 1 tablet by [...] 11. Dyspnea, unspecified type documented in this [facility] Work Phone: 1([phone]) [phone] Instructions* Patient Instructions* Maggy Vee LPN - [...] time of your visit. 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 No bleeding complications Mar, Chronic heart failure [...] (ICD-10 - R06.02) Multifactorial but mostly deconditioning. C w/o obstructive coronary disease Psat 98% Untreated [...] High risk medication use (ICD-10 - Z79.899) [employer] Other 04-10-2023 Consult note Author Debbie Mac [facility] November 27, 2022 11:58am Note Date/Time November 27, 2022 11: 48am [facility] [address] [place] [address] Cardiology Consult Note Signed Patient: Austin Golden MR#: [id number] : 1940 Acct:[id number] Age/Sex: 82 / F Adm Date: 3 Loc: CO Room: Type: [facility] Attending Dr: Wilbur Watson DO [...] function and a previous stress test in [place] that showed no evidence of myocardial ischemia. [...] Social History Comments: independent living at the [facility] in [facility] Medications and Allergies Allergies fentanyl [...] signed by MD Debbie Mac> 11/27/22 1158 [facility] Work Phone: [phone]) 888-754104-10-2023 Progress note Author Emmanuel Holland [facility] November 27, 2022 11:10am Note Date/Time November 27, 2022 11: 10am [facility] [address] [place] [address] Anesthesia Progress Note Signed Patient: Austin Golden MR#: [id number] : 1940 Acct:[id number] Age/Sex: 82 / F Adm Date: 3 Loc: CO Room: Type: [facility] Attending Dr: Wilbur Watson DO [...] by Emmanuel Holland Jr, MD> 11/27/22 1110 [facility] Work Phone: [phone] Evaluation note* Encounter Date Diagnosis Assessment Notes Treatment Notes Treatment Clinical Notes Oct, Pulmonary nodule (ICD-10 - R91.1) CT chest: no nodules - 10/2022 [employer] Other 03-07-2023 Evaluation note* Encounter Date Diagnosis [...] verbalized understanding and agreement of tx plan. [employer] Other 02-02-2023 Discharge summary Author Katie Dukes [facility] September 21, 2022 3:33pm Note Date/Time September 21, 2022 3 :17pm [facility] [address] [place] [address] Discharge Summary Signed Patient: Austin Golden MR#: [id number] : 1940 Acct:[id number] Age/Sex: 82 / F Adm Date: 3 Loc: Room: [address] [place] [address]: Katie Dukes DO Copies to: DO Katie Carias, ~ Providers Date of Discharge: 09/21/22 [...] and collapse. The patient was outside of [employer] when she suddenly lost consciousness. Work-up in [...] % (Auto) 68.2, Lymph % (Auto) 18.9, Col[place] % (Auto) 7.6, Eos % (Auto) 4.6, Baso % (Auto) 0.7, Nucleat RBC Rel Count 0.0, Neut # (Auto) 3.9, Lymph # (Auto) 1.1, Col[place] # (Auto) 0.4, Eos # (Auto) 0.3, [...] You are scheduled for an EKG at /[facility] Office on 09/27/2022 at 1:00pm Instructions: Heart [...] <Electronically signed by Katie Dukes DO> 09/21/22 1533 [facility] Work Phone: 1(684) 226-135702-02-2023 Progress note Author Debbie Mac [facility] September 21, 2022 9:48am Note Date/Time September 21, 2022 9 :45am [facility] [address] [place] [address] Cardiology Progress Note Signed Patient: Austin Golden MR#: [id number] : 1940 Acct:[id number] Age/Sex: 82 / F Adm Date: 3 Loc: Room: [address] [place] [address] Type: ADM IN Attending Dr: Katie Dukes [...] % (Auto) 68.2 Lymph % (Auto) 18.9 [place] % (Auto) 7.6 Eos % (Auto) 4.6 Baso % (Auto) 0.7 Nucleat RBC Rel Count 0.0 Neut # (Auto) 3.9 Lymph # (Auto) 1.1 [place] # (Auto) 0.4 Eos # (Auto) 0.3 [...] be ablation Documented By: Debbie Mac MD 09/21/2207 Signed By: <Electronically signed by MD Debbie Mac> 09/21/[address] [facility] Work Phone: 1(161) 639-447502-01-2023 Progress note Author Katie Dukes [facility] September 20, 2022 3:21pm Note Date/Time September 20, 2022 3 :21pm [facility] [address] [place] [address] Hospitalist Progress Note Signed Patient: Austin Golden MR#: [id number] : 1940 Acct:[id number] Age/Sex: 82 / F Adm Date: 3 Loc: 4 Room: [address] [place] [address] Type: ADM IN Attending Dr: Katie Dukes [...] signed by Katie Dukes DO> 09/20/22 1521 [facility] Work Phone: [phone] History of Present illness Narrative* Austin Golden is an 82 y/o female referred by Dr Mac for evaluation of AF. * PMH includes HTN, HLD, HF, SSS s/p PPG implant, CKD, obesity and AF. * Treatment of her AF includes Amiodarone (d/c d for concerns of penitentiary side effects), tikosyn (prolonged OTc), sotalol and DCCV (09/2022). * Symptoms of her AF include fatigue and BRAY. * Pt follows with Dr Stover for management of her AF. Pt has previously been on Amio but was concerned about penitentiary side effects. She was then put on [...] CONDUCTION @ 109 bpm * Echo 08/2022 ([facility]): LVEF 40%, moderate anteroseptal hypokinesis with wall motion suggestive of conduction abnormality, LA mildly dilated, trace MR & TR * Echo 06/2021: EF 45%, severe anteroseptal hypokinesis, mild-mod DD, LA mildly dilated, mild-mod MR,mild TR, mild-mod pHTN [facility] Work Phone: 1([phone]) [phone] History of Present illness Narrative* Austin Golden is an 82 y/o female referred by Dr Mac for evaluation of AF. * PMH includes HTN, HLD, HF, SSS s/p PPG implant, CKD, obesity and AF. * Treatment of her AF includes Amiodarone (d/c d for concerns of penitentiary side effects), tikosyn (prolonged OTc), sotalol and DCCV (09/2022). * Symptoms of her AF include fatigue and BRAY. * Pt follows with Dr Stover for management of her AF. Pt has previously been on Amio but was concerned about penitentiary side effects. She was then put on [...] CONDUCTION @ 109 bpm * Echo 08/2022 ([facility]): LVEF 40%, moderate anteroseptal hypokinesis with wall motion suggestive of conduction abnormality, LA mildly dilated, trace MR & TR * Echo 06/2021: EF 45%, severe anteroseptal hypokinesis, mild-mod DD, LA mildly dilated, mild-mod MR,mild TR, mild-mod pHTN [facility] [address] [place] Work Phone: 1([phone] 801-567802-01-2023 Progress note Author Debbie Mac [facility] September 20, 2022 9:04am Note Date/Time September 20, 2022 9 :03am [facility] [address] [place] [address] Cardiology Progress Note Signed Patient: Austin Golden MR#: [id number] : 1940 Acct:[id number] Age/Sex: 82 / F Adm Date: 3 Loc: 4 Room: [address] [place] [address] Type: ADM IN Attending Dr: Katie Dukes [...] % (Auto) 65.4 Lymph % (Auto) 22.6 [place] % (Auto) 6.8 Eos % (Auto) 4.5 Baso % (Auto) 0.7 Nucleat RBC Rel Count 0.2 Neut # (Auto) 3.6 Lymph # (Auto) 1.2 [place] # (Auto) 0.4 Eos # (Auto) 0.2 [...] signed by MD Debbie Mac> 09/20/22 0904 [facility] Work Phone: [phone]) 167-232202-01-2023 [facility] Progress note Author Katie Dukes [facility] September 19, 2022 6:52pm Note Date/Time September 19, 2022 6 :52pm [facility] [address] [place] [address] Hospitalist Progress Note Signed Patient: Austin Golden MR#: [id number] : 1940 Acct:[id number] Age/Sex: 82 / F Adm Date: 3 Loc: 4 Room: [address] [place] [address] Type: ADM IN Attending Dr: Katie Dukes [...] <Electronically signed by Katie Dukes DO> 09/19/22 1852 [facility] Work Phone: [phone] Progress note Author Debbie Mac [facility] September 19, 2022 9:57am Note Date/Time September 19, 2022 9 :57am [facility] [address] [place] [address] Cardiology Progress Note Signed Patient: Austin Golden MR#: [id number] : 1940 Acct:[id number] Age/Sex: 82 / F Adm Date: 3 Loc: Room: [address] [place] [address] Type: ADM IN Attending Dr: Katie Dukes [...] % (Auto) 68.4 Lymph % (Auto) 20.4 Col[place] % (Auto) 6.6 Eos % (Auto) 4.0 Baso % (Auto) 0.6 Nucleat RBC Rel Count 0.1 Neut # (Auto) 4.2 Lymph # (Auto) 1.2 [place] # (Auto) 0.4 Eos # (Auto) 0.2 [...] signed by MD Debbie Mac> 09/19/22 0957 [facility] Work Phone: 1([phone]) 802-297901-30-2023 Progress note Author Katie Dukes [facility] September 18, 2022 6:04pm Note Date/Time September 18, 2022 6 :04pm [facility] [address] [place] [address] Hospitalist Progress Note Signed Patient: Austin Golden MR#: [id number] : 1940 Acct:[id number] Age/Sex: 82 / F Adm Date: 3 Loc: Room: [address] [place] [address] Type: ADM IN Attending Dr: Katie Dukes [...] <Electronically signed by Katie Dukes DO> 09/18/22 6215 [facility] Work Phone: 1(340) [phone] Consult note Author Debbie Mac [facility] September 18, 2022 3:50pm Note Date/Time September 18, 2022 3 :39pm [facility] [address] [place] [address] Cardiology Consult Note Signed Patient: Austin Golden MR#: [id number] : 1940 Acct:[id number] Age/Sex: 82 / F Adm Date: 3 Loc: Room: [address] [place] [address] Type: ADM IN Attending Dr: Katie Dukes [...] test was 2 years ago back in [place] and was negative Review of Systems Review [...] Social History Comments: independent living at the [facility] Medications and Allergies Allergies fentanyl Allergy [...] 1 mg PO QHS 11/11/21 [History Confirmed 09/17/22] rivaroxaban 15 mg tablet [...] Debbie Mac> 09/18/[address] [facility] Work Phone: [phone] 292-948201-29-2023 History and physical note Author Jay Ceja [facility] September 17, 2022 5:45pm Note Date/Time September 17, 2022 5 :45pm [facility] [address] [place] [address] Hospitalist H&P Signed Patient: Austin Golden MR#: [id number] : 1940 Acct:[id number] Age/Sex: 82 / F Adm Date: 01/29/2 3 Loc: 4 Room: 2Q3891-1 Type: ADM IN Attending Dr: Jay Ceja [...] rate at home. Today she was at [employer] and she was standing upwaiting for her [...] Social History Comments: independent living at the [facility] Medications and Allergies Allergies fentanyl Allergy [...] % (Auto) 15.2 % (.) 09/17/22 13:19 Colleton % (Auto) 7.1 % (.) 09/17/22 13:19 Eos % (Auto) 3.5 % (.) 09/17/22 13:19 Baso % (Auto) 0.6 % (.) 09/17/22 13:19 Nucleat RBC Rel Count 0.3 /100 WBC (0-0.5) 09/17/22 13:19 Neut # (Auto) 5.9 x10E3/uL (1.8-7.7) 09/17/22 13:19 Lymph # (Auto) 1.2 x10E3/uL (1.00-4.8) 09/17/22 13:19 [place] # (Auto) 0.6 x10E3/uL (0.0-0.8) 09/17/22 13:19 [...] pH 5.5 (5.0-9.0) 09/17/22 13:19 Ur Specific [place] 1.024 (1.001-1.030) 09/17/22 13:19 Urine Protein Trace [...] 1738 Signed By: <Electronically signed by Jay Ceja, > 09/17/22 1745 [facility] Work Phone: [phone]) [phone] Evaluation note* Encounter Date Diagnosis Assessment Notes Treatment Notes Treatment Clinical Notes Aug, Persistent atrial fibrillation (ICD-10 - I48.19) This patient is in NSR or rate controlled. This patient is anticoagulated to prevent thromboembolic events. 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 Aug, Chronic heart failure with preserved ejection [...] use, the patient reduces the risk for [place], CVA, HTN, cardiac dysrhythmias and sudden cardiac [...] supplement, exercise w/ healthy diet. Symptoms tolerable [employer] Other 01-18-2023 Progress note Author Debbie Mac [facility] September 06, 2022 9:57am Note Date/Time September 06, 2022 9 :53am [facility] [address] [place] [address] Cardiology Progress Note Signed Patient: Austin Golden MR#: [id number] : 1940 Acct:[id number] Age/Sex: 81 / F Adm Date: 3 Loc: Room: [address] [place] [address] Type: ADM IN Attending Dr: Anival Easton [...] be discharged Documented By: Debbie Mac MD 09/06/2248 Signed By: <Electronically signed by MD Debbie Mac> 09/06/22 0957 [facility] Work Phone: 1([phone]) 659-599101-17-2023 Progress note Author Anival Easton [facility] September 05, 2022 6:18pm Note Date/Time September 05, 2022 3 :58pm [facility] [address] [place] [address] Hospitalist Progress Note Signed Patient: Austin Golden MR#: [id number] : 1940 Acct:[id number] Age/Sex: 81 / F Adm Date: 3 Loc: 4P Room: [address] [place] [address] Type: ADM IN Attending Dr: Anival Easton [...] mg 09/01/22 20:29 Bisacodyl 10 Mg Supp.Rect [place] 09/01/23 20:28 DAILY PRN Constipation Docusate Sodium [...] 2. Dysphagia?speech therapy, postrepair paraesophageal hiatal hernia [facility] 2016 Attending attestation: Patient was personally seen by me on the day of encounter. I reviewed her history and performed shea elements of exam and formulated the plan of care and confirmed the [employer]'s note above. Plan of care reflects my direct input Documented By: MELY Jacob 3 1558 Signed By: <Electronically signed by MELY Haro> 09/05/22 1722 <Electronically signed by Anival Easton MD> 09/05/[address] [facility] Work Phone: 1([phone]) 667-507801-17-2023 Progress note Author Ivyaries Farzadtellykrysten [facility] September 05, 2022 12:06pm Note Date/Time September 05, 2022 1 2:06pm [facility] [address] [place] [address] Cardiology Progress Note Signed Patient: Austin Golden MR#: [id number] : 1940 Acct:[id number] Age/Sex: 81 / F Adm Date: 3 Loc: Room: [address] [place] [address] Type: ADM IN Attending Dr: Anival Easton [...] % (Auto) 59.1 Lymph % (Auto) 25.6 [place] % (Auto) 9.7 Eos % (Auto) 4.7 Baso % (Auto) 0.9 Nucleat RBC Rel Count 0.2 Neut # (Auto) 3.3 Lymph # (Auto) 1.4 [place] # (Auto) 0.5 Eos # (Auto) 0.3 [...] signed by MD Debbie Mac> 09/05/22 1206 [facility] Work Phone: 1([phone]) 424-921601-17-2023 Progress note Author Anival Easton [facility] September 05, 2022 8:27am Note Date/Time September 04, 2022 2 :47pm [facility] [address] [place] [address] Hospitalist Progress Note Signed Patient: Austin Golden MR#: [id number] : 1940 Acct:[id number] Age/Sex: 81 / F Adm Date: 3 Loc: Room: [address] [place] [address] Type: ADM IN Attending Dr: Anival Easton [...] mg 09/01/22 20:29 Bisacodyl 10 Mg Supp.Rect [place] 09/01/23 20:28 DAILY PRN Constipation Docusate Sodium [...] DAILY [facility] Administration Potassium Chloride 20 meq 01/13/23 20:29 Potassium Chloride Er 20 Meq Tab.Er.Prt [...] note above. Documented By: MELY Jacob 3 7026 Signed By: <Electronically signed by MELY Haro> 09/04/221927 <Electronically signed by Anival Easton MD> 09/05/[address] [facility] Work Phone: 1([phone]) 231-962101-16-2023 Progress note Author Jimena Smith [facility] September 04, 2022 11:32am Note Date/Time September 04, 2022 1 1:32am [facility] [address] [place], [place] [address] Cardiology Progress Note Signed Patient: Austin Golden MR#: [id number] : 1940 Acct:[id number] Age/Sex: 81 / F Adm Date: 3 Loc: Room: [address] [place] [address] Type: ADM IN Attending Dr: Anival Easton [...] % (Auto) 64.7 Lymph % (Auto) 22.7 [place] % (Auto) 7.6 Eos % (Auto) 4.3 Baso % (Auto) 0.7 Nucleat RBC Rel Count 0.2 Neut # (Auto) 4.3 Lymph # (Auto) 1.5 [place] # (Auto) 0.5 Eos # (Auto) 0.3 [...] pressure readings Documented By: Jimena Smith MD, [facility]ie 3 1129 Signed By: <Electronically signed by MD CLAUDIA Smith> 09/04/22 1132 [facility] Work Phone: [phone]) [phone] Progress note Author Jay Ceja [facility] September 03, 2022 1:12pm Note Date/Time September 03, 2022 1 :12pm [facility] [address] [place] [address] Hospitalist Progress Note Signed Patient: Austin Golden MR#: [id number] : 1940 Acct:[id number] Age/Sex: 81 / F Adm Date: 3 Loc: Room: [address] [place] [address] Type: ADM IN Attending Dr: Jay Ceja [...] mg 09/01/22 20:29 Bisacodyl 10 Mg Supp.Rect [place] 09/01/23 20:28 DAILY PRN Constipation Bisacodyl 10 [...] problemsafter repair of a paraesophageal hiatal hernia [facility] and 2016. High-resolution CT scan of [...] signed by Jay Ceja DO> 09/03/22 1312 [facility] Work Phone: [phone] 439-306301-15-2023 Progress note Author iJmena Smith [facility] September 03, 2022 12:24pm Note Date/Time September 03, 2022 1 2:21pm [facility] [address] [place] [address] Cardiology Progress Note Signed Patient: Austin Golden MR#: [id number] : 1940 Acct:[id number] Age/Sex: 81 / F Adm Date: 3 Loc: Room: [address] [place] [address] Type: ADM IN Attending Dr: Jay Ceja [...] % (Auto) 68.3 Lymph % (Auto) 19.1 [place] % (Auto) 8.2 Eos % (Auto) 3.9 Baso % (Auto) 0.5 Nucleat RBC Rel Count 0.2 Neut # (Auto) 5.0 Lymph # (Auto) 1.4 [place] # (Auto) 0.6 Eos # (Auto) 0.3 [...] add spironolactone Documented By: Jimena Smith MD, [facility] 3 1220 Signed By: <Electronically signed by MD CLAUDIA Smith> 09/03/22 1224 [facility] Work Phone: [phone]) 540-101801-14-2023 Consult note Author Jimena Smith [facility] September 02, 2022 2:58pm Note Date/Time September 02, 2022 2 :53pm [facility] [address] [place] [address] Cardiology Consult Note Signed Patient: Austin Golden MR#: [id number] : 1940 Acct:[id number] Age/Sex: 81 / F Adm Date: 3 Loc: Room: [address] [place] [address] Type: ADM IN Attending Dr: Jay Ceja DO Copies to: DO Jimena Carias MD, [facility] Jay Ceja, ~ Cardiology HPI History [...] Social History Comments: independent living at the [facility] Medications and Allergies Allergies fentanyl Allergy [...] x10E3/uL Lymph # (Auto) 1.6 (1.00-4.8) x10E3/uL [place] # (Auto) 0.5 (0.0-0.8) x10E3/uL Eos # [...] ml @ 600 mls/hr IV [facility] Rx#:[id number] Amiodarone 360Mg-*D5w* 360 mg 200 / 200 200 / 400 200 / 400 In 200 ml @ 1 MG/MIN 33.333 mls /hr IV .Q6H [facility] Rx#:[id number] Oral 100 / 100 Other: # Voids [...] (primary) hypertension Documented By: Jimena Smith MD, [facility] 3 1452 Signed By: <Electronically signed by [facility] Jimena Smith> 09/02/22 1458 [facility] Work Phone: 1(488) 167-189201-14-2023 Progress note Author Jay Ceja [facility] September 02, 2022 2:42pm Note Date/Time September 02, 2022 1 :43pm [facility] [address] [place] [address] Hospitalist Progress Note Signed Patient: Austin Golden MR#: [id number] : 1940 Acct:[id number] Age/Sex: 81 / F Adm Date: 3 Loc: Room: [address] [place] [address] Type: ADM IN Attending Dr: Jay Ceja [...] mg 09/01/22 20:29 Bisacodyl 10 Mg Supp.Rect W[place] 09/01/23 20:28 DAILY PRN Constipation Bisacodyl 10 [...] <Electronically signed by Jay Ceja DO> 09/02/[address] [facility] Work Phone: [phone] 163-150801-13-2023 History and physical note Author Jay Ceja [facility] September 01, 2022 8:29pm Note Date/Time September 01, 2022 8 :29pm [facility] [address] [place] [address] Hospitalist H&P Signed Patient: Austin Golden MR#: [id number] : 1940 Acct:[id number] Age/Sex: 81 / F Adm Date: 3 Loc: ER Room: Type: [facility] ER Attending Dr: Copies to: DO [...] patient states that she was seeing Dr. aMc in the office just 2 weeksago and [...] review all of the events in the monitor worker system. None of these are consistent with [...] Social History Comments: independent living at the [facility] Medications and Allergies Allergies fentanyl Allergy [...] wheezing. No focal crackles. Heart: On the monitor worker she has an irregularly irregular rhythm with [...] % (Auto) 13.9 % (.) 09/01/22 12:40 Colleton % (Auto) 7.5 % (.) 09/01/22 12:40 Eos % (Auto) 4.1 % (.) 09/01/22 12:40 Baso % (Auto) 0.8 % (.) 09/01/22 12:40 Nucleat RBC Rel Count 0.1 /100 WBC (0-0.5) 09/01/22 12:40 Neut # (Auto) 5.9 x10E3/uL (1.8-7.7) 09/01/22 12:40 Lymph # (Auto) 1.1 x10E3/uL (1.00-4.8) 09/01/22 12:40 Colleton # (Auto) 0.6 x10E3/uL (0.0-0.8) 09/01/22 12:40 [...] pH 5.5 (5.0-9.0) 09/01/22 13:32 Ur Specific Ring[place] 1.022 (1.001-1.030) 09/01/22 13:32 Urine Protein 30 [...] <Electronically signed by Jay Ceja DO> 09/01/222028 [facility] Work Phone: [phone] 423-447209-08-2022 Evaluation note* Encounter Date Diagnosis Assessment Notes Treatment Notes Treatment Clinical Notes Apr, Cirrhosis (ICD-10 - K74.60) Apr, Vomiting (ICD-10 - R11.10) THIS IS 10 MINS ATER EATING AND UNDIGESTED FOODS. WE WILL PROCEED WITH GASTRIC EMPTYING STUDY [employer] 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 Other 05-17-2022 Reason for visit NarrativePATIENT HERE FOR FOLLOW UP TO EMS PROCEDURE ON 01/03/2022 FOR DYSPHAGIA. PATIENT DID HAVE A MODIFIEDBARIUM SWALLOWNorth [employer] Other 11-15-2021 Note [id number]#1.00CD:127[facility] 06-23-2021 [id number] [place] [address] [place] Work Phone: 1(996) 161-586011-04-2021 [id number]-Bba-[id number]:09FR ECG Post Procedure [facility] [address] [place] Work Phone: [phone] Nbpv3-Gvm-[id number]:09FR ECG Post Procedure [facility] [address] [place] Work Phone: 1([phone]) 500-225311-02-2021 [facility] [place] COVID-19 [facility]Negative (Normal) Range:Negative Comments:Testing for SARS-CoV-2 by RT-PCR This test was developed and its performance characteristics determined by [employer] ([employer]) and validated at the [facility] [...] the authorization is terminated or revoked sooner.PERFORMED BY:[place] [id number] [place] [id number] MEDICAL DIRECTORVITOR ZARATE M.D. [facility] [address] [place] Work Phone: Comment on above:Testing for SARS-CoV-2 by RT-PCR This test was developed and its performance characteristics determined by [employer] (BD) and validated at the [facility] [...] the authorization is terminated or revoked sooner.PERFORMED BY:[place] [address] [address] [place] [id number] MEDICAL SUZETTE ZARATE M.D. 06-21-2021 NoteFR COVID-19 FRNegative (Normal)Range:Negative Comments:Testing for SARS-CoV-2 by RT-PCR This test was developed and its performance characteristics determined by [employer] (BD) and validated at the [facility] [...] the authorization is terminated or revoked sooner.PERFORMED BY:[place] [address] [place], [place] [id number] MEDICAL DIRECTORVITOR ZARATE M.D. [address] Work Phone: Comment on above:Testing for SARS-CoV-2 by RT-PCR This test was developed and its performance characteristics determined by [employer] (BD) and validated at the [facility] [...] the authorization is terminated or revoked sooner.PERFORMED BY:[place] [address] [place], [place] [phone] MEDICAL DIRECTORVITOR ZARATE M.D. 06-21-2021 NoteFR COVID-19 [facility] [place]Range:Negative Comments:Testing for SARS-CoV-2 by RT-PCR This test was developed and its performance characteristics determined by [employer] (BD) and validated at the [facility] [...] the authorization is terminated or revoked sooner.PERFORMED BY:[place] [address] [address] YOST [id number] MEDICAL DIRECTORVITOR ZARATE M.D. [facility] [place] Work Phone: Comment on above:Testing for SARS-CoV-2 by RT-PCR This test was developed and its performance characteristics determined by [employer] (BD) and validated at the [facility] [...] the authorization is terminated or revoked sooner.PERFORMED BY:[place] [address] [address] [place] [id number] MEDICAL DIRECTORVITOR ZARATE M.D. 06-21-2021 [facility]ON[facility] [place] COVID-19 [facility] [place] [place] (Normal)Range:Negative Comments:Testing for SARS-CoV-2 by RT-PCR This test was developed and its performance characteristics determined by [employer] (BD) and validated at the [facility] [...] the authorization is terminated or revoked sooner.PERFORMED BY:[place] [address] [place] [phone] MEDICAL DIRECTORVITOR ZARATE M.D. [address] Work Phone: Comment on above:Testing for SARS-CoV-2 by RT-PCR This test was developed and its performance characteristics determined by [employer] (BD) and validated at the [facility] [...] the authorization is terminated or revoked sooner.PERFORMED BY:[place] [address] [place], [place] [phone] MEDICAL DIRECTORVITOR ZARATE M.D. 06-21-2021 NoteFR COVID-19 [facility] [place] [place] (Normal)Range:Negative Comments:Testing for SARS-CoV-2 by RT-PCR This test was developed and its performance characteristics determined by [employer] (BD) and validated at the [facility] [...] the authorization is terminated or revoked sooner.PERFORMED BY:[place] [address] [place] [id number] MEDICAL DIRECTORVITOR ZARATE M.D. [address] Work Phone: Comment on above:Testing for SARS-CoV-2 by RT-PCR This test was developed and its performance characteristics determined by [employer] (BD) and validated at the [facility] [...] the authorization is terminated or revoked sooner.PERFORMED BY:[place] [address] [place], [place] [phone] MEDICAL DIRECTORVITOR ZARATE M.D. 06-21-2021 [facility] COVID-19 [facility] [place] (Normal)Range:Negative Comments:Testing for SARS-CoV-2 by RT-PCR This test was developed and its performance characteristics determined by [employer] (BD) and validated at the [facility] [...] the authorization is terminated or revoked sooner.PERFORMED BY:[address] [id number] MEDICAL DIRECTORVITOR ZARATE M.D. [address] Work Phone: Comment on above:Testing for SARS-CoV-2 by RT-PCR This test was developed and its performance characteristics determined by [employer] (BD) and validated at the [facility] [...] the authorization is terminated or revoked sooner.PERFORMED BY:[place] [address] [place] [phone] MEDICAL DIRECTORVITOR ZARATE M.D. 06-21-2021 NoteFR COVID-19 FRNegative (Normal)Range:Negative Comments:Testing for SARS-CoV-2 by RT-PCR This test was developed and its performance characteristics determined by [employer] (BD) and validated at the [facility] [...] the authorization is terminated or revoked sooner.PERFORMED BY:[place] [address] [place], [place] [phone] MEDICAL DIRECTORVITOR ZARATE M.D. [facility] Work Phone: Comment on above:Testing for SARS-CoV-2 by RT-PCR This test was developed and its performance characteristics determined by [employer] (BD) and validated at the [facility] [...] the authorization is terminated or revoked sooner.PERFORMED BY:[address] [phone] MEDICAL DIRECTORVITOR ZARATE M.D. Chief complaint Narrative - ReportedAUSTIN GOLDEN is being seen for a cardiovascular evaluation of atrial fibrillation.JJ-Lbapfznnex-Tvltkb Work Phone: Chief complaint Narrative - ReportedAUSTIN GOLDEN is being seen for a cardiovascular evaluation of atrial fibrillation. QU-Cyasahhxuv-BBO [address] [place] Work Phone: Consult note Author Jimena Smith [facility] September 02, 2022 2:58pm Note Date/Time September 02, 2022 2 :53pm [facility] [address] [place] [address] Cardiology Consult Note Signed Patient: Austin Golden MR#: [id number] : 1940 Acct:[id number] Age/Sex: 81 / F Adm Date: 3 Loc: Room: [address] [place] [address] Type: ADM IN Attending Dr: Jay Ceja DO Copies to: DO Jimena Carias MD, [facility] Jay Ceja DO~ Cardiology HPI History [...] Social History Comments: independent living at the [facility] Medications and Allergies Allergies fentanyl Allergy [...] x10E3/uL Lymph # (Auto) 1.6 (1.00-4.8) x10E3/uL [place] # (Auto) 0.5 (0.0-0.8) x10E3/uL Eos # [...] ml @ 600 mls/hr IV [facility] Rx#:[id number] Amiodarone 360Mg-*D5w* 360 mg 200 / 200 200 / 400 200 / 400 In 200 ml @ 1 MG/MIN 33.333 mls /hr IV .Q6H [facility] Rx#:[id number] Oral 100 / 100 Other: # Voids [...] (primary) hypertension Documented By: Jimena Smith MD, [facility] 3 1452 Signed By: <Electronically signed by [facility] HOSPITALKathie Smith> 09/02/22 [facility] Work Phone: Consult note Author W Kwasi Dee [facility] Note Date/Time July 01, 2024 11:50am [facility] [address] [place] [address] Cardiology Consult Note Signed Patient: Austin Golden MR#: [id number] : 1940 Acct:[id number] Age/Sex: 83 / F Adm Date: 4 Loc: Room: [address] [place] [address] Type: ADM IN Attending Dr: Shilpa Fenton MD Copies to: DO Shilpa Carias MD W Kwasi Dee DO~ Cardiology HPI History of Present Illness [...] heart catheterization performed earlier this year at [facility] revealing mild coronary disease and normal left [...] 400 daily, and repeat cardioversion [facility] Medical History (Updated 07/01/24 @ 11:49 by [...] List clean-up per request of Phys. EHR [facility] Fib[facility] Problem List clean-up per request of [...] List clean-up per request of Phys. EHR [facility] COVID-19 2019 Problem List clean-up per request of Phys. EHR Cmte Atrial fibrillation with RVR Problem List clean-up per request of Phys. EHR Cmte Hernia of abdominal wall Problem List clean-up per request of Phys. EHR [facility] Surgical History History of repair of hiatal [...] List clean-up per request of Phys. EHR [facility] Family History Father Heart & renal disease, hypertensive, with heart fail/chron kidney dis Depression Sister Heart disease Mother Brain tumor Father Mother Social History Smoking Status: Never smoker Substance Use Type: None Substance Abuse Comment: etoh occasional Social History Comments: independent living at the [facility] Medications and Allergies Allergies No Known [...] Lymph # (Auto) 1.4 1.4 (1.00-4.8) x10E3/uL [place] # (Auto) 0.6 0.5 (0.0-0.8) x10E3/uL Eos [...] Albumin 4.3 (3.5-5.7) gm/dL Intake and Output 1107/01/24 07/01/24 23:59 07:59 15:59 Intake Total 250 [...] risk medication use: Code(s): Z79.899 - Other manager terminal (current) drug therapy (3) Chronic heart failure [...] <Electronically signed by Javed Dee DO> 07/01/[address] [facility] Work Phone: Discharge summary Author Izzy Capps [facility] January 20, 2024 3:42pm Note Date/Time January 20, 2024 2:55p [facility] [address] [place] [address] Discharge Summary Signed Patient: Austin Golden MR#: [id number] : 1940 Acct:[id number] Age/Sex: 83 / F Adm Date: 4 Loc: 3T Room: 2D9183-[address]: Izzy Capps MD Copies to: [...] 1 mg tablet 1 mg PO QHS Zzvf-Irsz-Hokv(vit A,C-biotin) 2,500 unit-100 mg-2,500 mcg capsule 1 [...] 30 Days Qty: 60 12RF Follow Up: [facility] [Provider Group] (Call office on Sunday to schedule follow-up with [facility]. ) Jazmin العلي DO [Primary Care Provider] [...] Izzy Capps MD> 01/20/[address] [facility] Work Phone: Discharge summaryAnthony Ville [phone] Discharge Summary Signed Patient: Austin Golden MR#: [id number] : 1940 Acct:[id number] Age/Sex: 83 / F Adm Date: 4 Loc: 3T Room: [address] [place] [address]: Shilpa Fenton MD Copies to: DO Shilpa Carias MD~ Providers Date of Discharge: 07/03/24 Discharging Provider: Shilpa Fenton Primary Care Provider: Jazmin العلي Consults: 06/30/24 17:45 Consult to Cardiology Routine Comment: Consulting Provider: [facility] Reason For Exam: cp Has Provider Been [...] diastolic congestive heart failure, compensated Non-ST elevation [place] type II Summary Hospital Course Hospital course: [...] denies any shortness of breath she was qoxgptewhg07% on room air at rest. Denies any [...] Laboratory work up and Imaging studies 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, after electrical cardioversion remained paced [...] % (Auto) 80.9, Lymph % (Auto) 10.9, [place] % (Auto) 5.6, Eos % (Auto) 2.3, Baso % (Auto) 0.3, Nucleat RBC Rel Count 0.1, Neut # (Auto) 7.9 H, Lymph # (Auto) 1.1, [place] # (Auto) 0.5, Eos # (Auto) 0.2, Baso # (Auto) 0.0, PHA Creatinine Clear 36.26, Sodium 139, Potassium 3.6, Chloride 106, Carbon Dioxide 25.5, Anion Gap 11.1, BUN 23, Creatinine 1.07, Est GFR (CKD-EPI) 52.185, [id number] H, Calcium 8.3 L Documented By: Shilpa Fenton MD 07/03/24 1648 Signed By: 07/03/24 1651 [facility] Author Shilpa Fenton [facility] Note Date/Time July 03, 2024 4:51pm [facility] [address] [place] [address] Discharge Summary Signed Patient: Austin Golden MR#: [id number] : 1940 Acct:[id number] Age/Sex: 83 / F Adm Date: 4 Loc: 3T Room: [address] [place] [address]: Shilpa Fenton MD Copies to: DO Shilpa Carias MD~ Providers Date of Discharge: 07/03/24 Discharging Provider: Shilpa Fenton Primary Care Provider: Jazmin العلي Consults: 06/30/24 17:45 Consult to Cardiology Routine Comment: Consulting Provider: [employer] [place] [employer] [facility] Reason For Exam: cp Has Provider Been [...] diastolic congestive heart failure, compensated Non-ST elevation W[place] type II Summary Hospital Course Hospital course: [...] Laboratory work up and Imaging studies 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, after electrical cardioversion remained paced [...] % (Auto) 80.9, Lymph % (Auto) 10.9, [place] % (Auto) 5.6, Eos % (Auto) 2.3, Baso % (Auto) 0.3, Nucleat RBC Rel Count 0.1, Neut # (Auto) 7.9 H, Lymph # (Auto) 1.1, [place] # (Auto) 0.5, Eos # (Auto) 0.2, Baso # (Auto) 0.0, PHA Creatinine Clear 36.26, Sodium 139, Potassium 3.6, Chloride 106, Carbon Dioxide 25.5, Anion Gap 11.1, BUN 23, Creatinine 1.07, Est GFR (CKD-EPI) 52.185, [id number] H, Calcium 8.3 L Documented By: Shilpa Fenton MD 07/03/24 1648 Signed By: <Electronically signed by Shilpa Fenton MD> 07/03/24 1651 [facility] Work Phone: Evaluation noteNo assessment information available [facility] Work Phone: Evaluation noteNo InformationNort [employer] Other Evaluation note* Diagnosis Onset Date Resolution Status Atrial fibrillation with rapid ventricular response acute CHF (congestive heart failure) acute Dysphagia acute Dyspnea on exertion acute Hypertension acute Sick sinus syndrome acute Ventricular tachycardia acut e Weakness [facility] Work Phone: evaluation note* Diagnosis Onset Date Resolution Status Atrial fibrillation with rapid ventricular response acute CHF (congestive heart failure) acute Dysphagia acute Dyspnea on exertion acute HTN (hypertension), benign a cute Hypertension acute Left ventricular systolic dysfunction, NYHA class 2 acute Sick sinus syndrome acute Ventricular tachycardia acut e Weakness acute [facility] Work Phone: evaluation note* Diagnosis Onset Date Resolution Status Atrial fibrillation with rapid ventricular response acute CHF (congestive heart failure) acute Dysphagia acute Dyspnea on exertion acute HTN (hypertension), benign a cute Hypertension acute Left ventricular systolic dysfunction, NYHA class 2 acute Sick sinus syndrome acute Ventricular tachycardia acut e Weakness acute Atrial fibrillation with rapid ventricular response acute Syncope acute [facility] Work Phone: Evaluation note* Diagnosis Onset [...] dysfunction, NYHA class 2 acute Syncope acute [facility] Work Phone: Evaluation note* Diagnosis Onset [...] acute Syncope acute Atrial fibrillation, persistent acute [facility] Work Phone: evaluation note* Diagnosis Onset Date Resolution Status Anticoagulated acute Atrial fibrillation with rapid ventricular response acute Dyspnea on exertion acute Hypertension acute Left ventricular systolic dysfunction, NYHA class 2 acute Syncope acute Atrial fibrillation, persistent acute [facility] Work Phone: Evaluation note* Diagnosis Persistent [...] Dyspnea, unspecified type documented in this encounter [facility] Work Phone: Evaluation note* Diagnosis Chronic diastolic heart failure (CMS/HCC) Chronic diastolic heart failure Essential hypertension, benign Dyspnea, unspecified type documented in this encounter [facility] Work Phone: Evaluation note* Diagnosis Chronic diastolic heart failure (CMS/HCC) Chronic diastolic heart failure Essential hypertension, benign Dyspnea, unspecified type documented in this encounter [facility] Work Phone: Evaluation note* Diagnosis Persistent atrial fibrillation (CMS/HCC)- Primary Atrial fibrillation 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) Chronic diastolic heart failure (CMS/HCC) Chronic diastolic heart failure Essential hypertension, benign Mixed hyperlipidemia Pacemaker Cardiac pacemaker in situ Sinus bradycardia Other specified cardiac dysrhythmias Single vessel coronary artery disease Coronary atherosclerosis of unspecified type of vessel, tetlin or graft documented in this encounter [facility] Work Phone: Evaluation note* Diagnosis Onset Date Resolution Status 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) acute Hypercholesterolemia acute Lumbar spondylosis acute Obstructive sleep apnea acut e Paroxysmal atrial fibrillation acute Primary hypertension acute Stage 3a chronic kidney disease [facility] Work Phone: Evaluation note* Diagnosis Onset Date Resolution Status 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) acute Hypercholesterolemia acute Lumbar spondylosis acute Obstructive sleep apnea acut e Paroxysmal atrial fibrillation acute Primary hypertension acute Stage 3a chronic kidney disease acute Atrial fibrillation with RVR acute 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) acute Stage 3a chronic kidney disease acute [facility] Work Phone: Evaluation note* Diagnosis Onset [...] hernia noneacti ve Nausea & vomiting noneactive [facility] Work Phone: Evaluation note* Diagnosis Onset [...] acute Hx of hiatal hernia noneacti ve [facility] Work Phone: Evaluation note* Diagnosis Onset [...] acute Stage 3a chronic kidney disease acute [facility] Work Phone: Evaluation note* Diagnosis Onset [...] GERD (gastroesophageal reflux disease) acute Vomiting acute [facility] Work Phone: Evaluation note* Diagnosis Esophageal [...] smoked any substance documented in this encounter [facility] Work Phone: Evaluation note* [...] use of anticoagulants documented in this encounter [facility] Work Phone: Evaluation note* Diagnosis NO SHOW- Primary [facility] Atrial flutter, unspecified type (Multi)- Primary Persistent atrial fibrillation (Multi) Atrial fibrillation High risk medication use Anticoagulated Encounter for long-term (current) use of anticoagulants Chronic diastolic heart failure (Multi) Chronic diastolic heart failure Single vessel coronary artery disease Coronary atherosclerosis of unspecified type of vessel, tetlin or graft 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 (Multi) Pacemaker Cardiac pacemaker in situ Essential hypertension, benign Mixed hyperlipidemia Gallstones Calculus of gallbladder without mention of cholecystitis or obstruction Stage 3a chronic kidney disease (Multi) Shortness of breath BMI 30.0-30.9,adult documented in this encounter [facility] Work Phone: Evaluation note* Diagnosis High risk medication use- Primary Diastolic heart failure, unspecified HF chronicity (Multi) Abnormal EKG Nonspecific abnormal electrocardiogram (ECG) (EKG) Anticoagulation management encounter Encounter for therapeutic drug monitoring Longstanding persistent atrial fibrillation (Multi) Sinus bradycardia Other specified cardiac dysrhythmias Pacemaker Cardiac pacemaker in situ BMI 30.0-30.9,adult Never smoked tobacco documented in this encounter [facility] Work Phone: Evaluation note* Diagnosis High risk medication use- Primary Pacemaker Cardiac pacemaker in situ Anticoagulation management encounter Encounter for therapeutic drug monitoring Longstanding persistent atrial fibrillation (Multi) Sinus bradycardia Other specified cardiac dysrhythmias BMI 28.0-28.9,adult Never smoked any substance documented in this encounter [facility] Work Phone: Evaluation note* Diagnosis Atrial flutter, unspecified type (Multi)- Primary Essential hypertension, benign Chronic diastolic heart failure (Multi) Chronic diastolic heart failure Mixed hyperlipidemia Sinus bradycardia Other specified cardiac dysrhythmias Single vessel coronary artery disease Coronary atherosclerosis of unspecified type of vessel, tetlin or graft Anticoagulated Encounter for long-term (current) use of anticoagulants Shortness of breath Never smoked any substance BMI 28.0-28.9,adult documented in this encounter [facility] Work Phone: Evaluation note* Diagnosis Pacemaker- Primary Cardiac pacemaker in situ Persistent atrial fibrillation (Multi) Atrial fibrillation Essential hypertension, benign Diastolic heart failure, unspecified HF chronicity (Multi) High risk medication use BMI 28.0-28.9,adult 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 (Multi) Sinus bradycardia Other specified cardiac dysrhythmias Never smoked any substance documented in this encounter [facility] Work Phone: Evaluation note* Diagnosis Esophageal dysphagia- Primary Dysphagia, pharyngoesophageal phase [facility] Diagnosis Persistent atrial fibrillation (Multi)- Primary Atrial fibrillation Atrial flutter, unspecified type (Multi) High risk medication use Single vessel coronary artery disease Coronary atherosclerosis of unspecified type of vessel, tetlin or graft 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 (Multi) Pacemaker Cardiac pacemaker in situ Mixed hyperlipidemia Essential hypertension, benign Chronic diastolic heart failure Anticoagulated Encounter for long-term (current) use of anticoagulants BMI 28.0-28.9,adult Stage 3a chronic kidney disease (Multi) Shortness of breath Never smoked any substance documented in this encounter [facility] Work Phone: Evaluation note* Diagnosis Pacemaker Cardiac pacemaker in situ Sick sinus syndrome (Multi) Sinoatrial node dysfunction documented in this encounter [facility] Work Phone: Evaluation note* Diagnosis Pacemaker Cardiac pacemaker in situ Sick sinus syndrome (Multi) Sinoatrial node dysfunction Persistent atrial fibrillation (Multi) Atrial fibrillation High risk medication use 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 (Multi) Essential hypertension, benign Chronic diastolic heart failure BMI 27.0-27.9,adult Never smoked tobacco documented in this encounter [facility] Work Phone: Evaluation note* [...] pacemaker in situ documented in this encounter [facility] Work Phone: Evaluation note* Diagnosis Acquired deformity of left toe- Primary Acquired deformity of right toe Pain due to onychomycosis of toenails of both feet documented in this encounter [facility]* Diagnosis High risk medication use- Primary Essential hypertension, benign Pacemaker Cardiac pacemaker in situ Persistent atrial fibrillation (Multi) Atrial fibrillation Anticoagulated Encounter for long-term (current) use of anticoagulants Shortness of breath documented in this encounter [facility] Work Phone: Evaluation note* Diagnosis Cellulitis of left foot- Primary Pain due to onychomycosis of toenails of both feet Acquired deformity of left toe Acquired deformity of right toe Foot ulcer, left, with fat layer exposed (HCC) documented in this encounter [facility] Healthcare[facility]* Diagnosis Persistent atrial fibrillation (Multi)- Primary Atrial fibrillation Pre-op testing Unspecified pre-operative examination Persistent atrial fibrillation (Multi) Atrial fibrillation documented in this encounter [facility] Work Phone: Evaluation note* Diagnosis Cellulitis of left foot- Primary Acquired deformity of left toe Acquired deformity of right toe Exostosis of left foot documented in this encounter [facility] Healthcare[facility] note* Diagnosis Onset Date Resolution Status Admit Date Acute hypoxic respiratory failure ac [place] May 18, 2025 11:58am Acute on chronic heart failu re with preserved ejection fraction (HFpEF) acute May 18, 2025 11:58am 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 acute May 182024 11:58am Primary hypertension acute Apr 11:58am Chronic heart failure with preserved ejection fraction (HFpEF) resolved May 18, 2025 11:58am Paroxysmal atrial fibrillation resol phil May 18, 2025 11:58am ASHD (arteriosclerotic heart disease) inactive May 18, 2025 11:58am Chronic kidney disease inactive Se ptember 2024 11:58am Hypercholesterolemia inactive Apr 11:58am [facility] Work Phone: Evaluation note* Diagnosis Persistent atrial fibrillation (Multi)- Primary Atrial fibrillation Pacemaker Cardiac pacemaker in situ Sick sinus syndrome (Multi) Sinoatrial node dysfunction Persistent atrial fibrillation (Multi) Atrial fibrillation documented in this encounter [facility] Work Phone: History and physical note Author Ángel Minaya [facility] Note Date/Time January 22, 2025 11:17 pm [facility] [address] [place] [address] Hospitalist H&P Signed Patient: Austin Golden MR#: [id number] : 1940 Acct:[id number] Age/Sex: 84 / F Adm Date: 5 Loc: ER Room: Type: [facility] ER Attending Dr: Copies to: MD [...] noted below or in HPI [facility] Medical History (Updated 01/22/25 @ 23:17 by [...] Social History Comments: independent living at the [facility] Medications and Allergies Allergies No Known [...] % (Auto) 17.7 % (.) 01/22/25 20:54 [place] % (Auto) 7.9 % (.) 01/22/25 20:54 Eos % (Auto) 2.5 % (.) 01/22/25 20:54 Baso % (Auto) 1.2 % (.) 01/22/25:54 Nucleat RBC Rel Count 0.2 /100 WBC (0-0.5) 01/22/25 20:54 Neut # (Auto) 5.5 x10E3/uL (1.8-7.7) 01/22/25 20:54 Lymph # (Auto) 1.4 x10E3/uL (1.00-4.8) 01/22/25 20:54 [place] # (Auto) 0.6 x10E3/uL (0.0-0.8) 01/22/25 20:54 [...] 01/22/25 20:54 Potassium 3.9 mmol/L (3.5-5.1) 01/22/25 20: Chloride 105 mmol/L (98-107) 01/22/25 20:54 Carbon [...] 4 Documented By: Ángel Minaya MD 01/22/25 2300 Signed By: <Electronically signed by Ángel Minaya MD> 01/22/25 8086 [facility] Work Phone: History general Narrative - Reported* Type Description Date Medical History fibromyalgia Medical History chronic pain Medical History hypertension Surgical History hernia 2015 Surgical History foot surgery Surgical History cardiac pacemeker Surgical History appendectomy Hospitalization History hospitalization in every 24. Depression with treatment of ECT Hospitalization History no history of suicide at [facility] Hospitalization History no history of trauma and substance abuse [employer] Other History general Narrative - Reported* Type [...] substance abuse Hospitalization History SEE SURGICAL HX [employer] Other History general Narrative - Reported* Type [...] and substance abuse Hospitalization History SEE SURGICAL [employer] Other History of Present illness Narrative* Patient [...] testing * 6. [facility] Work Phone: History of Present [...] the above has been addressed by her carpentry specialist Dr. Mota. She reports she underwent esophageal [...] exercise and try to lose some weight [facility] DO Work Phone: History of Present [...] I reviewed her pacemaker check with her -[facility] DO Work Phone: History of [...] advised her to restrict her salt intake [facility] Work Phone: History of Present [...] advised her to restrict her salt intake [facility] Work Phone: History of Present [...] advised her to restrict her salt intake [facility] Work Phone: History of Present illness Narrative* Joseph Sepulveda DPM - 04/30/2025 4:50 PM EDT Patient: Austin Allred Zander : 1940 PCP: Jazmin العلي, DO SUBJECTIVE [...] by mouth Daily, Disp: , Rfl: HYDROcodone-acetaminophen (Thrall) 10-325 MG tablet, 1 tablet, Disp: , [...] Resource Strain: Low Risk (03/21/2024) Received from [facility] Overall Financial Resource Strain (CARDIA) Difficulty of Paying Living Expenses: Not hard at all Food Insecurity: Not on file Transportation Needs: No Transportation Needs (03/24/2024) Received from [facility] PRAPARE - Transportation Lack of Transportation (Medical): No Lack of Transportation (Non-Medical): No Physical Activity: Not on file Stress: Not on file Social Connections: Not on file Intimate Partner Violence: Unknown (02/14/2024) Received from [facility] Safety & Environment Fear of Current or Ex-Partner: Not on file Emotionally Abused: Not on file Physically Abused: Not on file Sexually Abused: Not on file Physically or Sexually Abused: Not on file Housing Stability: Low Risk (03/21/2024) Received from [facility] Housing Stability Vital Sign Unable to [...] Podiatry Joseph Sepulveda DPM [facility] Additional Instructions Speech therapy recommendations: *Take pills whole with water *Sit upright at 90 degrees during all oral intake *Sit upright for 30 minutes after meals and snacks Dietitian recommendations: *Boost plus, 1 container, daily with meal[facility] Work Phone: Hospital Discharge instructions Additional Instructions You are scheduled for an EKG at /[facility] Office on 09/27/2022 at 1:00pm [facility] Work Phone: Progress note Author Jay Ceja [facility] September 02, 2022 2:42pm Note Date/Time September 02, 2022 1 :43pm [facility] [address] [place] [address] Hospitalist Progress Note Signed Patient: Austin Golden MR#: [id number] : 1940 Acct:[id number] Age/Sex: 81 / F Adm Date: 3 Loc: 4 Room: 2H9814-5 Type: ADM IN Attending Dr: Jay Ceja [...] mg 09/01/22 20:29 Bisacodyl 10 Mg Supp.Rect W[place] 09/01/23 20:28 DAILY PRN Constipation Bisacodyl 10 [...] signed by Jay Ceja DO> 09/02/22 1442 [facility] Work Phone: Progress note Author Shilpa Fenton [facility] Note Date/Time July 01, 2024 3:17pm [facility] [address] [place] [address] Hospitalist Progress Note Signed Patient: Austin Golden MR#: [id number] : 1940 Acct:[id number] Age/Sex: 83 / F Adm Date: 4 Loc: Room: [address] [place] [address] Type: ADM IN Attending Dr: Shilpa Fenton [...] Laboratory work up and Imaging studies 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, remains in atrial fibrillation but [...] By: Shilpa Fenton MD 07/01/241514 Signed By: <Electronically signed by Shilpa Fenton MD> 07/01/24 6096 [facility] Work Phone: Progress note Author Shilpa Fenton [facility] Note Date/Time July 02, 2024 1:06pm [facility] [address] [place] [address] Hospitalist Progress Note Signed Patient: Austin Golden MR#: [id number] : 1940 Acct:[id number] Age/Sex: 83 / F Adm Date: 4 Loc: Room: [address] [place] [address] Type: ADM IN Attending Dr: Shilpa Fenton [...] Laboratory work up and Imaging studies 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, remains in atrial fibrillation but [...] signed by Shilpa Fenton MD> 07/02/24 1306 [facility] Work Phone: Progress note Author W Kwasi Dee [facility] Note Date/Time July 02, 2024 3:59pm [facility] [address] [place] [address] Cardiology Progress Note Signed Patient: Austin Golden MR#: [id number] : 1940 Acct:[id number] Age/Sex: 83 / F Adm Date: 4 Loc: 3T Room: 8M7021-4 Type: ADM IN Attending Dr: Shilpa Fenton [...] heart catheterization performed earlier this year at [facility] revealing mild coronary disease and normal left [...] % (Auto) 72.9 Lymph % (Auto) 19.1 [place] % (Auto) 4.8 Eos % (Auto) 1.9 Baso % (Auto) 1.3 Nucleat RBC Rel Count 0.2 Neut # (Auto) 6.7 Lymph # (Auto) 1.7 [place] # (Auto) 0.4 Eos # (Auto) 0.2 [...] risk medication use: Code(s): Z79.899 - Other penitentiary (current) drug therapy (3) Chronic heart failure [...] <Electronically signed by Javed Dee DO> 07/02/24 155 [facility] Work Phone: Reason for referral (narrative)* Consultation (Routine) - Authorized Specialty Diagnoses / Procedures Referred By Contac t Referred To Contact Cardiology Diagnoses 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) Pacemaker Sinus bradycardia Debbie Mac MD 703 [facility] 2, [address] [address] Referral ID Status Reason Start Date Expiration Date Visits Requested Visits Authorized [id number] Authorized Specialty Services Required 09/19/2023 09/18/2024 1 1 * Cardiovascular (Routine) - Authorized Specialty Diagnoses / Procedures Referred By Contac t Referred To Contact Diagnoses Persistent atrial fibrillation (CMS/HCC) Procedures ECG 12 Lead Debbie Mac MD [address] [facility] 2, [address] [address] Referral ID Status Reason Start Date Expiration Date V isits Requested Visits Authorized [id number] Authorized 09/19/2023 09/18/2024 1 1 * Consultation (Routine) - Authorized Specialty Diagnoses / Procedures Referred By Contac t Referred To Contact Cardiology Diagnoses Persistent atrial fibrillation (CMS/HCC) 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) Chronic diastolic heart failure ([facility]) Procedures Follow Up In Cardiology Debbie Mac MD [address] [facility] 2, [address] [place] [address] Debbie Mac MD [address] [facility], [address] [place] [address] Referral ID Status Reason Start Date Expiration Date V isits Requested Visits Authorized [id number] Authorized 09/19/2023 09/18/2024 1 1 [facility] Work Phone: Reason for referral (narrative)* Tests/Procedures (Routine) - Authorized Specialty Diagnoses / Procedures Referred By Contleonides t Referred To Contact Gastroenterology Diagnoses Esophageal dysphagia Katie Yung MD [address] [place] [address] [facility] ENDOSCOPY [address] [place] [address] Referral ID Status Reason Start Date Expiration Date Visits Requested Visits Authorized [id number] Authorized Consultatio n-[facility] 05/15/2024 05/15/2025 1 1 Scheduling Instructions [facility] Division of Gastroenterology [address] [place] [address] ESOPHAGEAL MANOMETRY WHAT IS ESOPHAGEAL MANOMETRY? Esophageal [...] may eat once you get home. LOCATION: [facility] Suite located at [address] [place] [address]. - Plan to arrive at least 60 minutes before your scheduled procedure. Please also plan extra time for parking and shuttle service. - Bring your photo ID, insurance card, and medication insurance card. - Parking is available in the [facility] accessible from [address]. - 12/03 shuttle service from the garage to [facility] is available. - Go to the ground floor of the parking garage to reach the shuttle pick-up station located near the elevator and stairs. - Shuttle service will drop you off at [facility] Main Entrance. - Precision Assembler service is available at [facility] Main Entrance if you would prefer turret press operator over parking ([facility] Precision Assembler Service Hours: Sunday-Sunday, 5:30am- 8:00pm). - Enter [facility] Main Entrance and go to the Admitting/Registration Desk to check in for your procedure. - The Endoscopy department is located on the 1st floor of [facility]. Please call [phone] Sunday-Sunday, 7:00am-6:00pm if you have any pre- procedural questions. If you are calling AFTER HOURS, please call [phone] to speak to the [facility] Nurse industrial production manager. If you need to cancel this appointment prior to the scheduled date, please call the Endoscopy call center at [phone] at least 48 hours before the appointment/procedure time. Test Date: Test Time: We make every attempt to maintain our schedule, however, it is not always possible. Some procedures may take longer than others and our cases are scheduled to follow one another. We apologize for any delays. For any questions before your appointment, please call [phone] or [phone]. To cancel or change your appointment please call the Gastroenterology scheduling line at [phone]. [facility] (narrative)* Consultation (Routine) - Authorized Specialty Diagnoses / Procedures Referred By Contac t Referred To Contact Cardiology Diagnoses High risk medication use Pacemaker Anticoagulation management encounter Longstanding persistent atrial fibrillation (Multi) Sinus bradycardia BMI 28.0-28.9,adult Never smoked any substance Procedures Follow Up In Cardiology Maxwell Medrano MD [address] [place] [phone] Referral ID Status Reason Start Date Expiration Date V isits Requested Visits Authorized [id number] Authorized 04/17/2024 04/17/2025 1 1 * Consultation (Routine) - Authorized Specialty Diagnoses / Procedures Referred By Contac t Referred To Contact Cardiology Diagnoses High risk medication use Pacemaker Anticoagulation management encounter Longstanding persistent atrial fibrillation (Multi) Sinus bradycardia BMI 28.0-28.9,adult Never smoked any substance Procedures Follow Up In Cardiology Maxwell Medrano MD [address] [place] [phone] Referral ID Status Reason Start Date Expiration Date V isits Requested Visits Authorized [id number] Authorized 04/17/2024 04/17/2025 1 1 * Cardiovascular (Routine) - Authorized Specialty Diagnoses / Procedures Referred By Contac t Referred To Contact Diagnoses High risk medication use Procedures ECG 12 lead (Clinic Performed) Maxwell Medrano MD [address] [place] [id number] Referral ID Status Reason Start Date Expiration Date V isits Requested Visits Authorized [id number] Authorized 04/17/2024 04/17/2025 1 1 [facility] Work Phone: Rehlir for referral (narrative)* Consultation (Routine) - Authorized [...] Up In Cardiology Maxwell Medrano MD [address] [address] Referral ID Status Reason Start Date Expiration Date V isits Requested Visits Authorized [id number] Authorized 04/28/2024 04/28/2025 1 1 [facility] Work Phone: Reason for referral (narrative)No reason for referral information [facility] Work Phone: Reason for visit Narrative* Diagnostic X-Ray (Routine) - Closed Specialty Diagnoses / Procedures Referred By Ashtyn t Referred To Contact Radiology Diagnoses Esophageal dysphagia Procedures FL BARIUM SWALLOW DOUBLE CNTRST FL BARIUM SWALLOW SINGL CNTRST Katie Yung MD [address] [place] [address] Phone: tel: fax: [facility] [address] [place] [address] Phone: tel: Referral ID Status Reason Start Date Expiration Date Visits Re quested Visits Authorized [id number] Closed 06/19/2024 06/19/2025 1 1 [facility] Imaging (Routine) - Pending Review Specialty Diagnoses / Procedures Referred By Ashtyn dobson Referred To Contact Cardiology Diagnoses Pacemaker Sick sinus syndrome (Multi) Procedures Cardiac Device Check - Remote Maxwell Medrano MD [address] [address] Phone: tel: fax: Referral ID Status Reason Start Date Expiration Date Visits Requested Visits Authorized [id number] Pending Review Perform Procedure 09/08/2024 09/08/2025 52 52 [facility] Work Phone: Reason for visit Narrative* Imaging (Routine) - Pending Review Specialty Diagnoses / Procedures Referred By Contac t Referred To Contact Cardiology Diagnoses Pacemaker Procedures Cardiac Device Check - Remote Maxwell Medrano MD [address] [address] Phone: tel: fax: Referral ID Status Reason Start Date Expiration Date Visits Requested Visits Authorized [id number] Pending Review Perform Procedure 10/23/2024 10/23/2025 52 52 [facility] Work Phone: Reason for visit Narrative* Imaging (Routine) - Authorized Specialty Diagnoses / Procedures Referred By Contac t Referred To Contact Radiology Diagnoses Persistent atrial fibrillation (Multi) Procedures CT angio chest pre pulmonary vein ablation planning gated CT heart structure morphology congenital heart disease w IV contrast Maxwell Medrano MD [address] [address] Phone: tel: fax: Referral ID Status Reason Start Date Expiration Date Visits Requested Visits Authorized [id number] Authorized Perform Procedure 10/23/2024 10/23/2025 1 1 [facility] Work Phone: Reason for visit Narrative* Imaging (Routine) - Pending Review Specialty Diagnoses / Procedures Referred By Ashtyn t Referred To Contact Cardiology Diagnoses Pacemaker Sick sinus syndrome (Multi) Procedures Cardiac Device Check - Remote Maxwell Medrano MD [address] [address] Phone: tel: fax: Referral ID Status Reason Start Date Expiration Date Visits Requested Visits Authorized [id number] Pending Review Perform Procedure 05/19/2025 05/19/2026 52 52 [facility] Work Phone: Summary Purpose Family History [...] of brain Unknown father Unknown mother Unknown Relationship Condition Age at Onset Recorded Date/T [place] father Heart & renal diseas e, hypertensive, with heart fail/chron kidney dis Unknown Depression Unknown sister Heart disease Unknown mother Neoplasm of brain Unknown father Unknown mother Unknown Advance Directives Advance Directive Response Recorded [...] 2024 3:33pm Hospital Course Note MR#: [id number] [facility] Pt. Name: Austin Golden Admitted: 07/26/2020 Discharged: [...] Mac MD to review [facility] ast tsh onlyAUSTIN GOLDEN is [...] She was recently in the hospital at [facility] for Afib and was [...] hospital follow up R11.2 Amb Documentation [facility], Conversion/ 4 month f/u Reason for Visit [...] hospital follow up R11.2 Amb Documentation [facility], Conversion/ 4 month f/u trouble vomiting Reason [...] hospital follow up R11.2 Amb Documentation [facility], Conversion/ 4 month f/u trouble vomiting z79.899 [...] hospital follow up R11.2 Amb Documentation [facility], Conversion/ 4 month f/u trouble vomiting z79.899 [...] disease) Vomiting Chief Complaint Amb Documentation [facility], Conversion/ 4 month f/u trouble vomiting z79.899 [...] reflux disease) Chief Complaint Amb Documentation [facility], Conversion/ 4 month f/u trouble vomiting z79.899 [...] chronic kidney disease Chief Complaint Admit Date [facility], Conversion/ 4 month f/u Augus t 2023 [...] 2024 11:45am GERD (gastroesophageal reflux disease) S eptember 2023 11:45am Paroxysmal atrial fibrillation May 08, 2024 11:45am Primary hypertension May 08 11:45am Stage 3a chronic kidney disease Septembe r 2023 11:45am Dyspepsia May 19, 2024 9:22am Esophageal dysmotility May 19 9:22am GERD (gastroesophageal reflux disease) S eptember [...] 2024 5:45pm Chief Complaint Admit Date [facility], Conversion/ 4 month f/u Augus t 2023 [...] 2024 11:45am GERD (gastroesophageal reflux disease) S eptember 2023 11:45am Paroxysmal atrial fibrillation May 08, 2024 11:45am Primary hypertension May 08 11:45am Stage 3a chronic kidney disease [facility] 2023 11:45am Dyspepsia May 19, 2024 9:22am [...] 2024 11:45am GERD (gastroesophageal reflux disease) S [facility] 2023 11:45am Paroxysmal atrial fibrillation May 08, 2024 11:45am Primary hypertension May 08 11:45am Stage 3a chronic kidney disease [facility] 2023 11:45am Dyspepsia May 19, 2024 9:22am Esophageal dysmotility May 19, 024 9:22am GERD (gastroesophageal reflux disease) S epteer 2023 9:22am Acute on chronic heart failu [...] N Stemi July 23, 2024 1 2:56pm [facility] follow up-HIGH RISK July 31, 2024 11:23am Fall on 08/22:Hurt R Side-HIGH RISK Sergiouar kendall 2024 2:04pm Reason for Visit Admit Date [...] N Stemi July 23, 2024 1 2:56pm [facility] follow up-HIGH RISK July 31, 2024 11:23am Fall on 08/22:Hurt R Side-HIGH RISK Sergiouar y 2024 2:04pm cervical pain, thoracic pain [...] N Stemi July 23, 2024 1 2:56pm [facility] follow up-HIGH RISK July 31, 2024 11:23am [...] N Stemi July 23, 2024 1 2:56pm [facility] follow up-HIGH RISK July 31, 2024 11:23am [...] 2024 3:04pm ASHD (arteriosclerotic heart disease) Ja nulawrence 2024 3:04pm Atrial fibrillation September 09, 2024 [...] N Stemi July 23, 2024 1 2:56pm [facility] follow up-HIGH RISK July 31, 2024 11:23am Fall on 08/22:Hurt R Side-HIGH RISK Januar y 2024 2:04pm cervical pain, thoracic pain August 12:14pm chest pain/cough September 09, 2024 3 :04pm Chronic Kidney Disease September 11 12:51pm Difficulty Breathing & R Side Pain Janua 2024 11:10am Chief Complaint Admit Date Wellness-HIGH RISK July 09, 2024 2:54pm N Stemi July 21, 2024 9 :28pm N Stemi July 23, 2024 1 2:56pm [facility] [facility] follow up-HIGH RISK July 31, 2024 11:23am Fall on 08/22:Hurt R Side-HIGH RISK Januar y 2024 2:04pm cervical pain, thoracic pain August 12:14pm chest pain/cough September 09, 2024 3 :04pm Chronic Kidney Disease September 11 12:51pm Difficulty Breathing & R Side Pain Janua ry 2024 11:10am 3 month f/u October [...] Visit Admit Date ASHD (arteriosclerotic heart disease) Arlene y 2024 2:26pm Chronic kidney disease January [...] 2025 2:26pm ASHD (arteriosclerotic heart disease) Emily archibald 2024 1:35pm Cellulitis of left leg without [...] Visit Admit Date ASHD (arteriosclerotic heart disease) Arlene y 2024 2:26pm Chronic kidney disease January 09, 2025 2: 26pm GERD (gastroesophageal reflux disease) Yaquelin ay 2024 2:26pm Hypercholesterolemia January 09, 2025 2:26 pm 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 January 09, 2025 2:26pm Primary hypertension January 09, 2025 2:26 pm Chronic heart failure with preserved eje ction fraction (HFpEF) January 09, 2025 2:26pm Paroxysmal atrial fibrillation January 09, 2025 2:26pm ASHD (arteriosclerotic heart disease) Emily archibald 2024 1:35pm Cellulitis of left leg without foot January 21, 2025 1:35pm Chronic kidney disease January 21, 2025 1: 35pm Primary hypertension January 21, 2025 1:35 pm Chronic heart failure with preserved eje ction fraction (HFpEF) January 21, 2025 1:35pm Paroxysmal atrial fibrillation January 21, 2025 1:35pm Acute hypoxic respiratory failure January 222024 10:45pm ASHD (arteriosclerotic heart disease) Ju 2024 10:45pm Atrial fibrillation with rapid ventricul [...] sinus syndrome January 22, 2025 10:45 pm Chief Complaint Admit Date Unknown May 04, 2025 8:35am Chief Complaint Admit Date Unknown May 04, 2025 8:35am Amb Documentation May 05, 2025 10:07am TBH May 18, 2025 11:58am Reason for Visit Admit Date Acute hypoxic respiratory failure Septem 2024 11:58am Acute on chronic heart failu re with preserved ejection fraction (HFpEF) May 18, 2025 11:58am 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 May 18, 2025 11:58am Primary hypertension May 18 11:58am 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) May 18, 2025 11:58am Paroxysmal atrial fibrillation May 18, 2025 11:58am ASHD (arteriosclerotic heart disease) Se ptember 2024 11:58am Chronic kidney disease May 18, 2 025 11:58am Hypercholesterolemia May 18 11:58am Reason for Referral Specialty Diagnoses / Procedures Referred By Contac t Referred To Contact Diagnoses Atrial flutter, unspecified type (Multi) Procedures ECG 12 Lead Debbie Mac MD [address] [address] Referral ID Status Reason Start Date Expiration Date V isits Requested Visits Authorized [id number] Authorized 04/24/2024 04/24/2025 1 1 Specialty Diagnoses / Procedures Referred By Contac t Referred To Contact Cardiology Diagnoses Atrial flutter, unspecified type (Multi) Procedures Follow Up In Cardiology Debbie Mac MD [address] [facility] 2, Eduardo [address] [place] [address] Debbie Mac MD [address] [facility] 2, Edu[address] [place] [address] Referral ID Status Reason Start Date Expiration Date V isits Requested Visits Authorized [id number] Authorized 04/24/2024 04/24/2025 1 1 Specialty Diagnoses / Procedures Referred By Contac t Referred To Contact Diagnoses High risk medication use Procedures ECG 12 Lead Maxwell Medrano MD [address] [address] Referral ID Status Reason Start Date Expiration Date V isits Requested Visits Authorized [id number] Authorized 02/28/2024 02/27/2025 1 1 Specialty Diagnoses / Procedures Referred By Contac t Referred To Contact Cardiology Diagnoses High risk medication use Diastolic heart failure, unspecified HF chronicity (Multi) Abnormal EKG Anticoagulation management encounter Longstanding persistent atrial fibrillation (Multi) Sinus bradycardia Pacemaker BMI 30.0-30.9,adult Never smoked tobacco Procedures Follow Up In Cardiology Maxwell Medrano MD [address] [place] [address] Referral ID Status Reason Start Date Expiration Date V isits Requested Visits Authorized [id number] Authorized 02/28/2024 02/27/2025 1 1 Specialty Diagnoses / Procedures Referred By Contac t Referred To Contact Anesthesiology Diagnoses Esophageal dysphagia Katie Yung MD [address] [place] [address] [facility] PRE ADMISSION TESTING [address] [place] [address] Referral ID Status Reason Start Date Expiration Date V isits Requested Visits Authorized [id number] Authorized 05/15/2024 05/15/2025 1 1 Scheduling Instructions Your surgical team will reach out to you to schedule a pre-admission testing appointment. Question Answer Reason for consult? Recommended PAT Risk Score Specialty Diagnoses / Procedures Referred By Contac t Referred To Contact Cardiology Diagnoses Chronic diastolic heart failure (CMS/HCC) Essential hypertension, benign Dyspnea, unspecified type Procedures Transthoracic Echo (TTE) Complete [place] ECHO TRANSTHORC R-T 2D W/WO M-MODE REC F-UP/LMTD [place] DOP ECHOCARD COLOR FLOW VELOCITY MAPPING [place] DOP ECHOCARD PULSE WAVE W/SPECTRAL F-UP/LMTD STD Debbie Mac MD [address] [place] [address] 2, [address] [address] [address] [place] [id number] Referral ID Status Reason Start Date Expiration Date Visits Requested Visits Authorized [id number] Pending Review Perform Procedure 11/27/2023 1 1 Specialty Diagnoses / Procedures Referred By Contac t Referred To Contact Cardiology Diagnoses Persistent atrial fibrillation (CMS/HCC) 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) Chronic diastolic heart failure (CMS/HCC) Essential hypertension, benign Procedures Follow Up In Cardiology Debbie Mac MD [address] [place] [address], [address] [address] Referral ID Status Reason Start Date Expiration Date V isits Requested Visits Authorized [id number] Authorized 05/31/2023 11/27/2023 1 1 Specialty Diagnoses / Procedures [facility] Referred To Contact Diagnoses Persistent atrial fibrillation (CMS/HCC) 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) Procedures ECG 12 Lead Debbie Mac MD [address] [place] [address], [address] [address] Referral ID Status Reason Start Date Expiration Date V isits Requested Visits Authorized [id number] Pending Review 05/31/2023 11/27/2023 1 1 Additional Source Comments INFORMATION SOURCE (unrecogn ized section and content) DATE CREATED AUTHOR 08/08/2020 [facility] DATE CREATED AUTHOR AUTHOR'S ORGANIZ ATION 10/10/2021 [facility] DATE CREATED AUTHOR AUTHOR'S ORGANIZ ATION 12/28/2022 [facility] DATE CREATED AUTHOR AUTHOR'S ORGANIZ ATION 01/04/2023 [facility] DATE CREATED AUTHOR AUTHOR'S ORGANIZ ATION 01/30/2023 [facility] DATE CREATED AUTHOR AUTHOR'S ORGANIZ ATION 03/23/2024 [facility] DATE CREATED AUTHOR AUTHOR'S ORGANIZ ATION 03/31/2024 [facility] DATE CREATED AUTHOR AUTHOR'S ORGANIZ ATION 10/16/2024 [facility] DATE CREATED AUTHOR AUTHOR'S ORGANIZ ATION 01/06/2025 [facility] DATE CREATED AUTHOR AUTHOR'S ORGANIZ ATION 04/30/2025 [facility] DATE CREATED AUTHOR AUTHOR'S ORGANIZ ATION 05/01/2025 [facility] DATE CREATED AUTHOR AUTHOR'S ORGANIZ ATION 05/06/2025 [facility] DATE CREATED AUTHOR AUTHOR'S ORGANIZ ATION 05/07/2025 [facility] DATE CREATED AUTHOR AUTHOR'S ORGANIZ ATION 05/09/2025 [facility] EPIC Care Teams (unrecognized sec tion and content) Team Status: Active Member Role Status Dates Jazmin العلي DO Primary Care Provider Active Team Status: Active Member Role Status Dates Jazmin العلي DO Primary Care Provider Active Start: May 03, 2025 Juanito Barragan DO Attending Provider Active S tart: May 03, 2025 Team Status: Active Member Role Status Dates Jazmin العلي DO Primary Care Provider Active Start: May 04, 2025 Maxwell Basurto MD Attending Provider Active Sta rt: May 04, 2025 Team Status: Inactive Member Role Status Dates Maxwell Basurto MD Attending Provider Active Sta rt: May 04, 2025 End: May 04, 2025 Team Status: Inactive Member Role Status [...] 2024 Team Status: Active Member Role Status Roberto العلي DO Primary Care Provide r, Attending Provider Active Start: May 28, 2024 Team Status: Inactive Member Role Status Roberto العلي DO Primary Care Provide r, Attending Provider Active Start: June 10, 2024 End: June 10, 2024 Team Status: Active Member Role Status Roberto العلي DO Primary Care Provider Active Start: June 30, 2024 Vic Mendez PA-C Emergency Provider Active Start: June 30, 2024 Shilpa Fenton MD Admit Provider, Att ending Provider Active Start: June 30, 2024 Team Status: Active Member Role Status Roberto العلي DO Primary Care Provide r, Attending Provider Active Start: February 08, 2024 Team Status: Inactive Member Role Status Roberto العلي DO Primary Care Provide r, Attending Provider Active Start: February 15, 2024 End: February 15, 2024 Team Status: Inactive Member Role Status Dates Jazmin العلي DO Primary Care Provide r, Attending Provider Active Start: February 18, 2024 End: February 18, 2024 Team Status: Active Member Role Status Roberto العلي DO Primary Care Provider Active Start: March 21, 2024 Juanito Barragan , DO Attending Provider Active S tart: March 21, 2024 Team Status: Active Member Role Status Roberto العلي DO Primary Care Provide r, Attending Provider Active Start: March 21, 2024 Team Status: Active Member Role Status Dates Jazmin العلي DO Primary Care Provider Active Start: March 31, 2024 MICHAEL Joseph Attending Provider Active St art: March 31, 2024 Team Status: Inactive Member Role Status Jazmin العلي , DO Primary Care Provider Active Debbie Mac MD Attending Provider Active Team Status: Inactive Member Role Status Jazmin العلي , DO Primary Care Provider Active John Mims MD Attending Provider Active Team Status: Active Member Role Status Jazmin العلي , DO Primary Care Provider Active Debbie Mac MD Attending Provider Active John Mims MD Referring Provider Active Team Status: Inactive Member Role Status Jazmin العلي , DO Primary Care Provider Active Debbie Mac MD Attending Provider Active John Mims MD Referring Provider Active Team Status: Active Member Role Status Jazmin العلي , DO Primary Care Provider Active Luis Lennon , DO Emergency Provider Active Jay Ceja , DO Admit Provider, Attending Pr ovider Active Team Status: Inactive Member Role Status Jazmin العلي , DO Primary Care Provider Active Luis Lennon , DO Emergency Provider Active Jay Paizm , DO Admit Provider Active Anival Easton MD Attending Provider Active Team Status: Active Member Role Status Jazmin العلي , DO Primary Care Provider Active Indy Rolon PA-C Emergency Provider Active Jay Paizm , DO Admit Provider, Attending Pr ovider Active Team Status: Inactive Member Role Status Jazmin العلي , DO Primary Care Provider Active Indy Rolon , PA-C Emergency Provider Active Jay Paizm , DO Admit Provider Active Stephanie Bennett RN Other Provider Active Javed Dee , DO Other Provider Active Jimena Smith MD Other Provider Active Christopher Richardson MD Other Provider Active Debbie Mac MD Referring Provider, Other Prov ider Active Kenyn Porter MD Other Provider Active Dee Quach APRN Other Provider Active Bety Haile MD Other Provider Active Anoop Zhang MD Other Provider Active Isra Pedro MD Other Provider Active Cristiana Chapa , [facility]- Other Provider Active Yessy Ackerman MD Other Provider Active Katie Dukes , DO Attending Provider Active Team Status: Inactive Member Role Status Jazmin العلي , DO Primary Care Provider, Attending Pr ovider Active Team Status: Inactive Member Role Status Dates Jazmin العلي DO Primary Care Provider Active Wilbur Watson DO Attending Provider Active Synthetic Filament Extruder Relationship Specialty Start Date End Date TysonJazmin AlisongurpreetDO [address] [facility] [place] [address] PCP - General 08/20/99 Synthetic Filament Extruder Relationship Specialty Start Date End Date TysonJazmin AlisongurpreetDO [address] [facility] [place] [address] PCP - General Internal Medicine 08/09/23 Synthetic Filament Extruder Relationship Specialty Start Date End Date Tyson Jazmin TamgurpreetDO [address] [facility] [place] [address] PCP - General Internal Medicine 08/09/23 Team [...] Attending Provider Active Start: 2023 End: 2023 Synthetic Filament Extruder Relationship Specialty Start Date End Date Jazmin العلي DO [address] [facility] [place] [address] PCP - General Internal Medicine 08/09/23 Debbie Mac MD [address] [place] [address] 2, [address] [place] [address] Consulting Physician Cardiology 09/10/23 Team Status: Inactive [...] Active Start: M ay 2023 Cristiana Chapa [employer] AND/OR VICE DETECTIVE- Other Provider Active Sta rt: January 18, 2024 Team Status: Inactive Member Role Status Dates Jazmin العلي DO Primary Care Provider Active Start: January 18, 2024 End: January 20, 2024 Vic Mendez PA-C Emergency Provider Active Start: January 18, 2024 End: January 20, 2024 Izzy Capps MD Admit Provider, Nadia wilson Provider Active Start: January 18, 2024 End: [...] M ay 2023 End: January 20, 2024 Cristiana Chapa , [facility]- Other Provider Active Sta rt: January 18, 2024 End: January 20, 2024 Synthetic Filament Extruder Relationship Specialty Start Date End Date Jazmin العلي DO [address] [place] [address] PCP - General Internal Medicine 08/09/23 Debbie Mac MD [address] [facility] 2, [address] [place] [address] Consulting Physician Cardiology 09/10/23 Team Status: Active [...] Active Start: February 07, 2024 Juanito Barragan , Attending Provider Active S tart: February 07, 2024 Team Status: Active Member Role Status Dates Jazmin العلي DO Primary Care Provide r, Attending Provider Active Start: February 07, 2024 Synthetic Filament Extruder Relationship Specialty Start Date End Date Jazmin العلي DO [address] [place] [address] PCP - General Internal Medicine 08/09/23 Debbie Mac MD [address] [place] [address] 2, [facility] [address] [place] [address] Consulting Physician Cardiology 09/10/23 Maxwell Medrano MD [address] [place] [address] [address] [place] [address] Consulting Physician Cardiology 02/13/24 Team Status: Inactive [...] Active Start: July 01, 2024 Dee Quach APRN Other Provider Active Start : July 01, 2024 Bety Haile MD Other Provider Active Start: 2023 Anoop Zhang MD Other Provider Active Start: July 01, 2024 Isra Pedro MD Other Provider Active Start: 2023 Cristiana Chapa [facility]- Other Provider Active Sta rt: July 01, 2024 Gloria Sierra MD Attending Provider Active Start: July 01, 2024 Team Status: Active Member Role Status Roberto العلي DO Primary [...] Pedro MD Other Provider Active Start: [address] [facility] Other Provider Active Sta rt: [...] July 09, 2024 End: July 09, 2024 Synthetic Filament Extruder Relationship Specialty Start Date End Date Jazmin العلي DO [address] [place] [address] PCP - General Internal Medicine 08/09/23 Debbie Mac MD [address] [place] [address], [address] [address] Consulting Physician Cardiology 09/10/23 Maxwell Medrano MD [address] [place] [address] Consulting Physician Cardiology 02/13/24 Synthetic Filament Extruder Relationship Specialty Start Date End Date Katie Yung MD [address] [place] [address] [place] [address] Physician Gastroenterology 07/26/24 Synthetic Filament Extruder Relationship Specialty Start Date End Date Jazmin العلي DO [address] [place] [address] PCP - General Internal Medicine 08/09/23 Debbie Mac MD [address] [place] [address] Consulting Physician Cardiology 09/10/23 Maxwell Medrano MD [address] [place] [address] Consulting Physician Cardiology 02/13/24 Synthetic Filament Extruder Relationship Specialty Start Date End Date Jazmin العلي DO [address] [place] [address] PCP - General Internal Medicine 08/09/23 Debbie Mac MD [address] [place] [address] Consulting Physician Cardiology 09/10/23 Maxwell Medrano MD [address] [place] [address] Consulting Physician Cardiology 02/13/24 Synthetic Filament Extruder Relationship Specialty Start Date End Date Jazmin العلي DO [address] [place] [address] PCP - General Internal Medicine 08/09/23 Debbie Mac MD [address] [place] [address] Consulting Physician Cardiology 09/10/23 Maxwell Mderano MD [address] [place] [address] Consulting Physician Cardiology 02/13/24 Sasha Sepulveda, nascar pit crew personMelter Operator 03/28/24 Synthetic Filament Extruder Relationship Specialty Start Date End Date Jazmin العلي DO [address] [place] [address] PCP - General Internal Medicine 08/09/23 Debbie Mac MD [facility] 2, [address] [place] [address] Consulting Physician Cardiology 09/10/23 Maxwell Medrano MD [address] [place] [address] [address] [place] [address] Consulting Physician Cardiology 02/13/24 Sasha Sepulveda, nascar pit crew personMelter Operator 03/28/24 Synthetic Filament Extruder Relationship Specialty Start Date End Date Jazmin العلي DO [facility] [facility] [place] [address] PCP - General Internal Medicine 08/09/23 Debbie Mac MD [address] [place] [address] 2, [facility] [address] [place] [address] Consulting Physician Cardiology 09/10/23 Maxwell Medrano MD [address] [place] [address] Consulting Physician Cardiology 02/13/24 Sasha Sepulveda, nascar pit crew personMelter Operator 03/28/24 04/28/24 Synthetic Filament Extruder Relationship Specialty Start Date End Date Katie Yung MD [address] [place] [address] [place] [address] Physician Gastroenterology 07/26/24 Team Status: Active Member Role Status Dates Jazmin العلي DO Primary Care Provider Active Start: July 21, 2024 Juanito Barragan DO Attending Provider Active S tart: July 21, [...] 21, 2024 End: July 24, 2024 Christopher Rcihardson MD Other Provider Active Start: July 21, 2024 End: July 24, 2024 Debbie Mac MD Other Provider Active St art: July 21, 2024 End: July 24, 2024 Kenny Porter MD Other Provider Active Start: July 21, 2024 End: July 24, 2024 Dee Quach APRN Other Provider Active Start : July 21, 2024 End: July 24, 2024 Bety Haile MD Other Provider Active Start: D 2023 End: July 24, 2024 Anoop Zhang MD Other Provider Active Start: July 21, 2024 End: July 24, 2024 Isra Pedro MD Other Provider Active Start: D 2023 End: July 24, [address] [facility] Other Provider Active Sta rt: July 21, [...] Isra Pedro MD Other Provider Active Start: D 2023 Cristiana Chapa , [facility] Other Provider Active Sta rt: July 23, [...] August 27, 2024 End: August 27, 2024 Synthetic Filament Extruder Relationship Specialty Start Date End Date Jazmin العلي DO [address] [place] [address] PCP - General Internal Medicine 08/09/23 Debbie Mac MD [address] [place] [address] [facility] [address] [place] [address] Consulting Physician Cardiology 09/10/23 Maxewll Medrano MD [address] [place] [address] [address] [place] [address] Consulting Physician Cardiology 02/13/24 Team Status: Inactive Member Role Status Dates Jazmin العلي DO Primary Care Provider Active Start: September 05, 2024 End: September 05, 2024 Yesica Astudillo MD Attending Provider Active Start: September 05, 2024 End: September 05, 2024 Synthetic Filament Extruder Relationship Specialty Start Date End Date Jzamin العلي DO [address] [place] [address] PCP - General Internal Medicine 08/09/23 Debbie Mac MD [address] [facility] 2, [facility] [address] [place] [address] Consulting Physician Cardiology 09/10/23 Maxwell Medrano MD [address] [place] [address] [address] [place] [address] Consulting Physician Cardiology 02/13/24 Team Status: Inactive [...] October 06, 2024 End: October 06, 2024 Synthetic Filament Extruder Relationship Specialty Start Date End Date Katie Yung MD [address] [facility] [place] [address] Physician Gastroenterology 07/26/24 Synthetic Filament Extruder Relationship Specialty Start Date End Date Katie Yung MD [address] [facility] [place] [address] Physician Gastroenterology 07/26/24 Synthetic Filament Extruder Relationship Specialty Start Date End Date Katie Yung MD [address] [facility] [place] [address] Physician Gastroenterology 07/26/24 Synthetic Filament Extruder Relationship Specialty Start Date End Date Katie Yung MD [address] [facility] [place] [address] Physician Gastroenterology 07/26/24 Synthetic Filament Extruder Relationship Specialty Start Date End Date Katie Yung MD [address] [facility] [place] [address] Physician Gastroenterology 07/26/24 Team Status: Inactive Member [...] January 22, 2025 End: January 23, 2025 Synthetic Filament Extruder Relationship Specialty Start Date End Date Jazmin العلي DO [address] [place] [address] PCP - General Internal Medicine 08/09/23 Debbie Mac MD [address], [address] [place] [address] Consulting Physician Cardiology 09/10/23 Maxwell Medrano MD [address] [place] [address] [address] [place] [address] Consulting Physician Cardiology 02/13/24 Synthetic Filament Extruder Relationship Specialty Start Date End Date Jazmin العلي DO [address] [facility] [place] [address] PCP - General Internal Medicine 02/14/23 Synthetic Filament Extruder Relationship Specialty Start Date End Date Jazmin العلي DO [address] [facility] [place] [address] PCP - General Internal Medicine 02/14/23 Synthetic Filament Extruder Relationship Specialty Start Date End Date Jazmin العلي DO [address] [facility] [place] [address] PCP - General Internal Medicine 02/14/23 Synthetic Filament Extruder Relationship Specialty Start Date End Date Jazmin العلي DO [address] [facility] [place] [address] PCP - General Internal Medicine 02/14/23 Synthetic Filament Extruder Relationship Specialty Start Date End Date Jazmin العلي DO [address] [place] [address] PCP - General Internal Medicine 08/09/23 Debbie Mac MD [address] [place] [address] 2, [address] [place] [address] Consulting Physician Cardiology 09/10/23 Maxwell Medrano MD [address] [place] [address] [address] [place] [address] Consulting Physician Cardiology 02/13/24 Synthetic Filament Extruder Relationship Specialty Start Date End Date Jazmin العلي DO [address] [place] [address] PCP - General Internal Medicine 02/14/23 Synthetic Filament Extruder Relationship Specialty Start Date End Date Jazmin العلي DO [address] [place] [address] PCP - General Internal Medicine 02/14/23 Team Status: Active Member Role Status Dates Jazmin العلي DO Primary Care Provider Active Start: May 05, 2025 Maxwell Basurto MD Attending Provider Active Sta rt: May 05, 2025 Team Status: Active Member Role Status Dates Jazmin العلي DO Primary Care Provider Active Start: May 05, 2025 Sasha Rios CMA Attending Provider Active Start: May 05, 2025 Team Status: Inactive Member Role Status Dates Jazmin العلي DO Primary Care Provider Active Start: May 18, 2025 End: May 18, 2025 Jazmin العلي DO Attending Provider Active Sta rt: May 18, 2025 End: May 18, 2025 Synthetic Filament Extruder Relationship Specialty Start Date End Date Jazmin العلي DO [address] [place] [address] PCP - General Internal Medicine 08/09/23 Debbie Mac MD [address] [place] [address] 2, [facility] [address] [place] [address] Consulting Physician Cardiology 09/10/23 Maxwell Medrano MD [address] [place] [address] [address] [place] [address] Consulting Physician Cardiology 02/13/24 Goals (unrecognized section [...] ECG 12 Lead Debbie Mac MD [address] [facility] 2, Eduardo [address] [place] [id number] Referral ID Status Reason Start Date Expiration Date V isits Requested Visits Authorized [id number] Pending Review 05/31/2023 11/27/2023 1 1 Specialty Diagnoses / Procedures Referred By Ashtyn dobson Referred To Contact Cardiology Diagnoses Chronic diastolic heart failure (CMS/HCC) Essential hypertension, benign Dyspnea, unspecified type Procedures Transthoracic Echo (TTE) Complete [place] ECHO TRANSTHORC R-T 2D W/WO M-MODE REC F-UP/LMTD [place] DOP ECHOCARD COLOR FLOW VELOCITY MAPPING [place] DOP ECHOCARD PULSE WAVE W/SPECTRAL F-UP/LMTD STD Debbie Mac MD [facility] [facility] 2, Eduardo [address] [place] [address] [address] [place] [phone] Referral ID Status Reason Start Date Expiration Date Visits Requested Visits Authorized [id number] Authorized Perform Procedure 11/27/2023 1 1 Reason Comments Follow-up 4 month Specialty Diagnoses / Procedures Referred By Contac t Referred To Contact Cardiology Diagnoses Persistent atrial fibrillation (CMS/HCC) 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) Chronic diastolic heart failure (CMS/HCC) Essential hypertension, benign Procedures Follow Up In Cardiology Debbie Mac MD [facility] [facility] 2, [address] [address] Referral ID Status Reason Start Date Expiration Date V isits Requested Visits Authorized [id number] Authorized 05/31/2023 11/27/2023 1 1 Reason Comments ekg visit Specialty Diagnoses / Procedures Referred By Contac t Referred To Contact Diagnoses Dyspnea, unspecified type Persistent atrial fibrillation (Multi) Procedures ECG 12 Lead Debbie Mac MD [facility] [facility] 2, [address] [address] Referral ID Status Reason Start Date Expiration Date V isits Requested Visits Authorized [id number] Authorized 01/17/2024 01/16/2025 1 1 Reason Comments [...] Follow Up In Cardiology Maxwell Medrano MD [address] [place] [address] Phone: tel: fax: Referral ID Status Reason Start Date Expiration Date V isits Requested Visits Authorized [id number] Authorized 04/28/2024 04/28/2025 1 1 Reason Onset [...] Anticoagulated Procedures Follow Up In Cardiology Cristiana Chapa, [employer]ACHINE [employer] [address] [address] Phone: tel: fax: Maxwell Medrano MD [address] [address] Phone: tel: fax: Referral ID Status Reason Start Date Expiration Date V isits Requested Visits Authorized [id number] Authorized 07/07/2024 07/07/2025 1 1 Reason Onset Date Comments Update 07/21/2024 Reason Onset Date Comments No Show 07/29/2024 Reason Comments Hospital Follow-up [facility] discharge 02/07-afib Specialty Diagnoses / Procedures Referred By Contac t Referred To Contact Diagnoses Persistent atrial fibrillation (Multi) Procedures ECG 12 Lead Debbie Mac MD [address] [facility] 2, [address] [address] Referral ID Status Reason Start Date Expiration Date V isits Requested Visits Authorized [id number] Authorized 02/25/2024 02/24/2025 1 1 Reason Comments Follow-up Specialty Diagnoses / Procedures Referred By Contac t Referred To Contact Diagnoses High risk medication use Procedures ECG 12 Lead Maxwell Medrano MD [address] [address] Referral ID Status Reason Start Date Expiration Date V isits Requested Visits Authorized [id number] Authorized 02/28/2024 02/27/2025 1 1 Reason Comments Hospital Follow-up CARDIOVERSION 03/25/24 Specialty Diagnoses / Procedures Referred By Contac t Referred To Contact Diagnoses High risk medication use Procedures ECG 12 lead (Clinic Performed) Maxwell Medrano MD [address] [address] Referral ID Status Reason Start Date Expiration Date V isits Requested Visits Authorized [id number] Authorized 04/17/2024 04/17/2025 1 1 Reason Comments Follow-up 4 months Specialty Diagnoses / Procedures Referred By Contac t Referred To Contact Cardiology Diagnoses Essential hypertension, benign Procedures Follow Up In Cardiology Debbie Mac MD [address] [facility] 2, [address] [address] Debbie Mac MD [facility] [facility] 2, [address] [address] Referral ID Status Reason Start Date Expiration Date V isits Requested Visits Authorized [id number] Authorized 11/28/2023 11/27/2024 1 1 Reason Comments Follow-up 2 WEEK Reason Comments Swallowing problems Reason Comments Follow-up [facility] Specialty Diagnoses / Procedures Referred By Contac t Referred To Contact Diagnoses Persistent atrial fibrillation (Multi) Procedures ECG 12 Lead Debbie Mac MD [facility]03 [facility] 2, [address] [address] Phone: tel: fax: Referral ID Status Reason Start Date Expiration Date V [employer] Requested Visits Authorized [id number] Authorized 09/05/2024 09/05/2025 1 1 Reason Comments [...] (Multi) Procedures ECG 12 Lead Cristiana Chapa, MACHINE [employer] [address] [facility] [address] [place] [address] Phone: tel: fax: Referral ID Status Reason Start Date Expiration Date V [employer] Requested Visits Authorized [id number] Authorized 02/23/2025 02/23/2026 1 1 Reason Onset Date Comments Food getting stuck in throat 11/11/2024 Swallowing problems 11/11/2024 Reason Comments Toenail Care Reason Comments Follow-up Cellulitis check Continuous Active and Recently Administ ered Medications [...] BE BASED ON THE PRIMARY CLINICAL RECORDS. [facility] [facility]. provides no warranty or guarantee of the accuracy or completeness of information in this document.
[2025-05-22 17:05] LABS: Anion Gap 14.1; Blood Urea Nitrogen 44.0 mg/dL (7.0-18.0); Calcium 8.8 mg/dL (8.5-10.1); Carbon Dioxide 31.0 mmol/L (21.0-32.0); Chloride 100 mmol/L (98-107); Estimated GFR (African America 38 (>=60 mL/min/1.73m^2); Estimated GFR (Non-African Ame 31 (>=60 mL/min/1.73m^2); Glucose 125 mg/dL (74-106); NT Pro B Type Natriuretic Pept 1019.0 pg/mL (<=1800.0); Potassium 4.1 mmol/L (3.5-5.1); Sodium 141 mmol/L (136-145)
== END 2025-05-22 16:09 | disposition home or self-care (01) ==
LOC: LAB 16:12
PROVIDERS: PCP Internal Medicine; Visit Provider Internal Medicine
DX: I50.33 Acute on chronic diastolic (congestive) heart failure (principal); N18.32 Chronic kidney disease, stage 3b
CPT/HCPCS: 36415; 80048; 83880

== ENCOUNTER 2025-05-25 19:37 | Emergency (ER) | payer OTHER, SELFPAY ==
--- OUTSIDE RECORDS SUMMARY | 2024-05-15 12:25 | XMS_ITS | Encounter Summary ---
Author Organization [facility] Address [address] [facility] [address] [place] [id number] Care Team Providers Care Instrumental Teacher Name Role Phone Unavailable Primary Care Provider Unavailabl e Reason for Visit * Tests/Procedures (Routine) - Closed Specialty Diagnoses / Procedures Referred By Ashtyn marshall Referred To Contact Gastroenterology Diagnoses Gastroesophageal reflux disease without esophagitis Nausea and vomiting, unspecified vomiting type Epigastric pain Chas Powell, [place] DIRECTOR [address] [place] [address] Phone: tel: fax: S ENDOSCOPY [address] [place] [id number] Phone: tel: Referral ID Status Reason Start Date Expiration Date V isits Requested Visits Authorized [id number] Closed Transfer of Care-[facility] 04/23/2024 04/23/2025 1 1 Encounter Details Date Type Department Care Team (Latest Contact Info) Description 05/15/2024 12:25 PM EDT Hospital Encounter [facility] Multispecialty Endoscopy [address] [place] [address] Social History Tobacco Use Types Packs/Day Years Used Date Smoking Tobacco: Never Assessed Comments Unknown Sex and Gender Information Value Date Recorded Sex Assigned at Not on file Legal Sex Female 3:52 PM EDT Gender Identity Not on file Sexual Orientation Not on file documented as of this encounter Progress Notes * Jennifer Proctor LPN - 05/15/2024 1:18 PM EDT GI Motility Lab Note Pre-procedure: Patient verified using two patient identifiers. Patient arrived for : Esophageal Manometry Order verified. Verified Patient preparation for procedure: NPO for 4 hours There were no vitals filed for this visit. Allergies verified The procedure is explained to the patient. Patient verbalized understanding about the plan of care. Intra-procedure: Esophageal Manometry was not performed , unable to advance catheter to stomach. After several attempts catheter removed intact. Post-Procedure: Provided patient with discharge instructions. Educated the patient which signs and symptoms to notify their physician for. Notify Your Physician For: Dizziness/fainting, Vomiting, Difficulty swallowing, Shortness of breath, Vomiting blood or passing black stools, and Signs of infection such as fever documented in this encounter Plan of Treatment Scheduled Referrals Name Type Priority Associated Diagnoses Orde r Schedule ENDOSCOPY SERVICE REQUEST-GI Referral Routine Gastroesophageal reflux disease without esophagitis Nausea and vomiting, unspecified vomiting type Epigastric pain Ordered: 04/23/2024 documented as of this encounter Visit Diagnoses Not on filedocumented in this encounter
--- OUTSIDE RECORDS SUMMARY | 2025-05-19 10:39 | XMS_ITS | Encounter Summary ---
Author Organization [facility] Address [address] [place] [address] Phone Care Team Providers Care Electric Serviceman Name Role Phone TysonChester Jovani MORENO Primary Care Provider [phone] Gustavo Garcia MD Unavailable Maxwell Stafford MD Unavailable [phone] Reason for Referral * Imaging (Routine) - Pending Review Specialty Diagnoses / Procedures Referred By Ashtyn marshall Referred To Contact Cardiology Diagnoses Pacemaker Sick sinus syndrome (Multi) Procedures Cardiac Device Check - Remote Maxwell Stafford MD [address] [address] Phone: tel: fax: Referral ID Status Reason Start Date Expiration Date Visits Requested Visits Authorized [id number] Pending Review Perform Procedure 05/19/2025 05/19/2026 52 52 Reason for Visit * Imaging (Routine) - Pending Review Specialty Diagnoses / Procedures Referred By Ashtyn marshall Referred To Contact Cardiology Diagnoses Pacemaker Sick sinus syndrome (Multi) Procedures Cardiac Device Check - Remote Maxwell Stafford MD [address] [address] Phone: tel: fax: Referral ID Status Reason Start Date Expiration Date Visits Requested Visits Authorized [id number] Pending Review Perform Procedure 05/19/2025 05/19/2026 52 52 Encounter Details Date Type Department Care Team (Latest Contact Info) Description 05/19/2025 10:39 AM EDT - 05/19/2025 11:59 PM EDT Hospital Encounter [address] [address] Pacemaker; Sick sinus syndrome (Multi) Discharge Disposition: Home Social History Tobacco Use [...] were you homeless or living in a prison (including now)? No 03/21/2024 Comments Unknown Sex [...] (Lasix) 20 mg tabletIndications: Chronic diastolic heart failure (Multi),Shortness of breath TAKE 1 TABLET BY MOUTH [...] Description 05/26/2025 2:40 PM EDT Office Visit [address] [address] Gustavo Garcia MD [address] [place] [address] 2, [facility] [address] [place] [address] 05/28/2025 9:00 AM EDT Appointment [address] [place] [address] Kirby Betancourt MD [address] [place] [address] 05/28/2025 12:00 PM EDT Hospital Encounter [address] [place] [address] Maxwell Stafford MD [address] [place] [id number] Persistent atrial fibrillation (Multi) 05/28/2025 12:00 PM EDT - 05/28/2025 4:00 PM EDT Surgery [address] [address] Maxwell Stafford MD [address] [place] [address] Ablation A-Fib [35286 (CPT )] 05/29/2025 2:15 PM EDT Office Visit [facility] Medical Office Building [address] [facility] [address] [place] [address] Maxwell Stafford MD [address] [address] documented as of this encounter Goals Goal Patient Goal Type Associated Problems Recent Progress Patient-Stated? Author Autogenera anne marie Goal Care Plan Autogenerated Problem No Batch Discontinue, Automatic documented as of this encounter Procedures Procedure Name Priority Date/Time Associated Diagnosis Comments CARDIAC DEVICE CHECK - REMOTE - PACEMAKER Routine 05/19/2025 10:43 AM EDT Pacemaker Sick sinus syndrome (Multi) documented in this encounter Results * CARDIAC DEVICE CHECK - REMOTE - PACEMAKER (05/19/2025 10:43 AM EDT) Anatomical Region Laterality Modality Monitor/Device 05/19/2025 6:00 AM EDT Maxwell Stafford MD CV IMPLANTABLE CARDIAC DEVICE PROCEDURES Final Result documented in this encounter Visit Diagnoses Diagnosis Persistent atrial fibrillation (Multi)- Primary Atrial fibrillation Pacemaker Cardiac pacemaker in situ Sick sinus syndrome (Multi) Sinoatrial node dysfunction Persistent atrial fibrillation (Multi) Atrial fibrillation documented in this encounter Additional Health Concerns Active Problems Noted Date Diagnosed Date Autogenerated Problem 04/08/2025 Assessment Noted Time A fall risk assessment has been complete d for the patient 09/05/2024 11:18 AM EST documented as of this encounter Care Teams Electric Serviceman Relationship Specialty Start Date End Date Chester Mehta DO [address] [place] [address] PCP - General Internal Medicine 08/09/23 Gustavo Garcia MD [address] [place] [address] 2, [address] [place] [address] Consulting Physician Cardiology 09/10/23 Maxwell Stafford MD [address] [address] Consulting Physician Cardiology 02/13/24 documented as of this encounter
[2025-05-25] VITALS (16 sets, daily range): BP systolic 110–137; BP diastolic 77–94; PULSE 94–96; TEMP 36.6–36.8; O2SAT 92–98; BMI 27.1
--- NOTE | 2025-05-25 19:49 | CT_ITS ---
The [address] [address] Patient Name: AUSTIN GOLDEN MRN: [id number] date: 1940 Sex: F Assigned Patient Location: ER Current Patient Location: ED.MAIN Accession/Order Number: [id number] Exam Date: 05/25/2025 20:03 Report Date: 05/25/2025 20:35 At the request of: DARRON FIERRO MD Procedure: CT facial bones wo con MAXILLOFACIAL CT WITHOUT CONTRAST: CLINICAL HISTORY: fall COMPARISON: None TECHNIQUE: Spiral axial unenhanced images were obtained through the facial bones. Coronal and sagittal reconstructions were also reviewed. This CT exam was performed using one or more following dose reduction techniques: Automated exposure control, adjustment of the mA and/or kV according to patient size, or use of iterative reconstruction technique. FINDINGS: No facial bone fracture or bony destruction is identified. Right sphenoid sinus air-fluid level. Cataract surgery. No retrobulbar hematoma. Orbital contents otherwise grossly unremarkable. There is moderate right forehead and supraorbital soft tissue swelling. IMPRESSION: NO EVIDENCE OF FACIAL BONE INJURY Impression dictated by: Tank Desai M.D. 05/25/2025 8:35 PM Dictation Location: [place] [address] Electronically authenticated by: [id number] Y Date: 05/25/2025 20:35
--- NOTE | 2025-05-25 19:49 | CT_ITS ---
The [address] [address] Patient Name: AUSTIN GOLDEN MRN: [id number] date: 1940 Sex: F Assigned Patient Location: ER Current Patient Location: .[facility] Accession/Order Number: [id number] Exam Date: 05/25/2025 20:03 Report Date: 05/25/2025 20:56 At the request of: DARRON FIERRO MD Procedure: CT thoracic spine wo con CT THORACIC SPINE WITHOUT CONTRAST WITH 3D RECONSTRUCTIONS: CLINICAL HISTORY: fall COMPARISON: None TECHNIQUE: Spiral axial unenhanced images were obtained through the thoracic spine. Sagittal, coronal and 3D volume-rendered reconstructions were also reviewed. This CT exam was performed using one or more following dose reduction techniques: Automated exposure control, adjustment of the mA and/or kV according to patient size, or use of iterative reconstruction technique. FINDINGS: There is central involutional of the normal thoracic kyphosis. Multilevel moderate severe degenerative changes identified throughout the thoracic Spine with multilevel disc space narrowing and endplate osteophytosis. Multilevel facet arthropathy. Moderate size hiatal hernia. Cardiomegaly. Coronary disease. Pacemaker device CT/CT thoracic spine wo con IMPRESSION: NO THORACIC SPINE FRACTURE MULTILEVEL DEGENERATIVE CHANGES IDENTIFIED THROUGHOUT THE THORACIC SPINE Impression dictated by: Tank Desai M.D. 05/25/2025 8:56 PM Dictation Location[facility] Electronically authenticated by: [id number] Y Date: 05/25/2025 20:56
--- NOTE | 2025-05-25 19:49 | CT_ITS ---
The [address] [address] Patient Name: AUSTIN GOLDNE MRN: [id number] date: 1940 Sex: F Assigned Patient Location: ER Current Patient Location: .[facility] Accession/Order Number: [id number] Exam Date: 05/25/2025 20:03 Report Date: 05/25/2025 21:01 At the request of: DARRON FIERRO MD Procedure: CT lumbar spine wo con CT THORACIC SPINE WITHOUT CONTRAST WITH 3D RECONSTRUCTIONS: CLINICAL HISTORY: fall COMPARISON: None TECHNIQUE: Spiral axial unenhanced images were obtained through the thoracic spine. Sagittal, coronal and 3D volume-rendered reconstructions were also reviewed. This CT exam was performed using one or more following dose reduction techniques: Automated exposure control, adjustment of the mA and/or kV according to patient size, or use of iterative reconstruction technique. FINDINGS: Multilevel degenerative changes identified throughout the lumbar spine with multilevel disc space narrowing and endplate osteophytosis. Multilevel facet arthropathy. Moderate to severe stenosis identified mid to lower lumbar spine due to combination of disc disease posterior element hypertrophic changes. There is at least moderate neural foraminal narrowing L3-S1 CT/CT lumbar spine wo con IMPRESSION: NO LUMBAR SPINE FRACTURE MULTILEVEL DEGENERATIVE CHANGES IDENTIFIED THROUGHOUT THE LUMBAR SPINE Impression dictated by: Tank Desai M.D. 05/25/2025 9:01 PM Dictation Location: [place] [address] Electronically authenticated by: [id number] Y Date: 05/25/2025 21:01
--- NOTE | 2025-05-25 19:49 | CT_ITS ---
The [address] [address] Patient Name: AUSTIN GOLDEN MRN: [id number] date: 1940 Sex: F Assigned Patient Location: ER Current Patient Location: .[facility] Accession/Order Number: [id number] Exam Date: 05/25/2025 20:03 Report Date: 05/25/2025 20:31 At the request of: ADRRON FIERRO MD Procedure: CT head/brain wo con CT BRAIN WITHOUT CONTRAST: CLINICAL HISTORY: fall COMPARISON: 02/21/2024 TECHNIQUE: Contiguous axial unenhanced images were obtained through the brain. This CT exam was performed using one or more following dose reduction techniques: Automated exposure control, adjustment of the mA and/or kV according to patient size, or use of iterative reconstruction technique. FINDINGS: There is no evidence of midline shift, intra or extra-axial fluid collection, hemorrhage or CT evidence of acute large vascular distribution stroke. Central involutional changes and yoya-vh-ufdijdos chronic small vessel ischemic disease. Left frontal extra-axial meningioma identified 1.2 x 1.2 cm in size. Cataract surgery. Right supraorbital and lateral soft tissue swelling. Right sphenoid sinus air-fluid level. Intracranial vascular calcifications. Mastoids are clear. No calvarial fracture. CT/CT head/brain wo con IMPRESSION: NO ACUTE INTRACRANIAL ABNORMALITY. RIGHT FACIAL SOFT TISSUE INJURY. CHRONIC MICROVASCULAR CHANGES. LEFT FRONTAL MENINGIOMA, UNCHANGED. Impression dictated by: Tank Desai M.D. 05/25/2025 8:31 PM Dictation Location: [place] [address] Electronically authenticated by: [id number] Y Date: 05/25/2025 20:31
--- NOTE | 2025-05-25 19:49 | CT_ITS ---
The [address] [address] Patient Name: AUSTIN GOLDEN MRN: [id number] date: 1940 Sex: F Assigned Patient Location: ER Current Patient Location: [facility] Accession/Order Number: [id number] Exam Date: 05/25/2025 20:03 Report Date: 05/25/2025 20:52 At the request of: DARRON FIERRO MD Procedure: CT cervical spine wo con CT CERVICAL SPINE WITHOUT CONTRAST WITH 3D RECONSTRUCTIONS: CLINICAL HISTORY: fall COMPARISON: None TECHNIQUE: Spiral axial unenhanced images were obtained through the cervical spine. Sagittal, coronal and 3D volume-rendered reconstructions were also reviewed. This CT exam was performed using one or more following dose reduction techniques: Automated exposure control, adjustment of the mA and/or kV according to patient size, or use of iterative reconstruction technique. FINDINGS: Degenerative changes at the craniocervical junction identified with hypertrophic calcifications transverse ligaments there is narrowing of the predental space with associated degenerative changes. Question moderate severe canal narrowing due to disc osteophyte complex and ligamentum flavum calcification C3-C4 and less so C5-C7. Otherwise multilevel degenerative changes identified throughout the cervical spine greatest from C5 through C7 and moderate at C4-C5. CT/CT cervical spine wo con IMPRESSION: NO CERVICAL SPINE FRACTURE MULTILEVEL DEGENERATIVE CHANGES IDENTIFIED THROUGHOUT THE CERVICAL SPINE Impression dictated by: Tank Desai M.D. 05/25/2025 8:52 PM Dictation Location: [place] [address] Electronically authenticated by: [id number] Y Date: 05/25/2025 20:52
--- NOTE | 2025-05-25 19:50 | ED.HEATRA1 ---
HPI HPI - Head Injury General Chief complaint: Head Injury Stated complaint: FALL Time Seen by Provider: 05/25/25 19:45 Source: patient Mode of arrival: ambulance History of Present Illness HPI Narrative: patient tripped on the side walk and fell face first. Struck right druze. Did attempt to break her fall with her hands and has minor scrapes of her fingers. Denies any significant pain of her hand or fingers. Complains of a headache. No nausea, dizziness or neck pain. States she has back pain from fibromyalgia. Denies pain of her hips or any injury to her lower extremities. No complaint of rib or chest pain. No numbness of her extremities Related Data Home Medications ?Medication ?Instructions ?Recorded ?Confirmed atorvastatin 40 mg tablet 40 mg PO .QHS 10/15/23 05/03/25 ropinirole 1 mg tablet 1 mg PO .HS 10/15/23 05/03/25 amiodarone 200 mg tablet 200 mg PO .QD 07/21/24 05/04/25 calcium 600 mg (as 1 tab PO DAILY 07/21/24 05/03/25 carbonate)-vitamin D3 20 mcg (800 unit) tablet cholecalciferol (vitamin D3) 25 25 mcg PO DAILY 07/21/24 05/03/25 mcg (1,000 unit) capsule efwmrrqfsxrd-twuunrsk-kcka 1 tab PO QAM 07/21/24 05/03/25 fumarate 18 mg-folic acid 400 mcg tablet (One-A-Day Women's Complete) duloxetine 30 mg capsule,delayed 30 mg PO DAILY 05/03/25 05/03/25 release metoprolol succinate 50 mg 50 mg PO DAILY 05/03/25 05/03/25 tablet,extended release 24 hr rivaroxaban 20 mg tablet (Xarelto) 20 mg PO DAILY 05/03/25 05/03/25 furosemide 40 mg tablet 40 mg PO .QD 05/04/25 05/04/25 Previous Rx's ?Medication ?Instructions ?Recorded diltiazem HCl 180 mg 180 mg PO DAILY #30 caps 02/08/24 capsule,extended release 24 hr acetaminophen 325 mg tablet 650 mg (2 x 325 mg) PO Q6H PRN 05/05/25 (Tylenol) pain or fever #0 tabs aspirin 81 mg tablet,delayed 81 mg PO QD #30 tabs 05/05/25 release cefuroxime axetil 250 mg tablet 250 mg PO BID 5 days #10 tabs 05/05/25 potassium chloride 10 mEq 10 meq PO DAILY #30 tabs 05/05/25 tablet,extended release Allergies Allergy/AdvReac Type Severity Reaction Status Date / Time No Known Drug Allergies Allergy Verified 05/03/25 06:50 Opioid HPI Opioid Management Most Recent Pain and Opioid Data: Last Pain Scale 7 Today, 20:03 Last ORT Total Score 0 05/03/25, 10:13 Last ORT Risk Category Low Risk 05/03/25, 10:13 Review of Systems ROS Status of ROS 10 or more systems reviewed and unremarkable except as noted in history and below [facility] Medical History (Updated 05/25/25 @ 21:42 by Daniel Berman MD) Chronic a-fib ?I48.20 - Chronic atrial fibrillation, unspecified (ICD-10) CHF (congestive heart failure) ?I50.9 - Heart failure, unspecified (ICD-10) Diastolic heart failure ?I50.30 - Unspecified diastolic (congestive) heart failure (ICD-10) Depression ?F32.A - Depression, unspecified (ICD-10) Diaphragmatic hernia ?K44.9 - Diaphragmatic hernia without obstruction or gangrene (ICD-10) Lumbar stenosis with neurogenic claudication ?M48.062 - Spinal stenosis, lumbar region with neurogenic claudication (ICD-10) Lumbar spondylosis ?M47.816 - Spondylosis without myelopathy or radiculopathy, lumbar region (ICD-10) Sacroiliitis ?M46.1 - Sacroiliitis, not elsewhere classified (ICD-10) S/P extracorporeal shock wave therapy ?Z98.890 - Other specified postprocedural states (ICD-10) Kidney stone ?N20.0 - Calculus of kidney (ICD-10) Low back pain ?M54.50 - Low back pain, unspecified (ICD-10) Neck pain ?M54.2 - Cervicalgia (ICD-10) Fibromyalgia ?M79.7 - Fibromyalgia (ICD-10) Hiatal hernia ?K44.9 - Diaphragmatic hernia without obstruction or gangrene (ICD-10) SOB (shortness of breath) ?R06.02 - Shortness of breath (ICD-10) High cholesterol ?E78.00 - Pure hypercholesterolemia, unspecified (ICD-10) Hypertension ?I10 - Essential (primary) hypertension (ICD-10) Surgical History Hx laparoscopic cholecystectomy ?Z90.49 - Acquired absence of other specified parts of digestive tract (ICD-10) S/P hernia repair ?Z98.890 - Other specified postprocedural states (ICD-10) ?Z87.19 - Personal history of other diseases of the digestive system (ICD-10) Family History (Updated 05/03/25 @ 10:42 by Loren Logan) Aunt Family history of cancer Father Family history of diabetes mellitus Family history of hypertension Family history of myocardial infarction Sister Family history of hypertension Social History (Updated 05/03/25 @ 10:42 by Loren Logan) Within the past year, how often did you have a drink containing alcohol: never Score interpretation: A score less than 3 is consistent with normal alcohol consumption. Smoking status: Never smoker Non-prescribed substance use: denies use Highest level of school completed/degree received: high school graduate Are you now , , , , never or living with a partner: In a typical week, how many times do you talk on the telephone with family, friends, or neighbors: 3 or more times per week How often do you get together with friends or relatives: 3 or more times per week How often do you attend confucianism or anabaptist services: 1-3 times per year Do you belong to any clubs or organizations such as confucianism groups unions, fraternal or athletic groups, or school groups: yes Total score: 2 Score interpretation: A score of greater than or equal to 2 indicates the lowest level of social isolation. Little interest or pleasure in doing things: not at all Feeling down, depressed, or hopeless: not at all Exam Constitutional Vital Signs, click to edit/add: Last Vital Signs Temp 98.2 F 05/25/25 19:40 Pulse 96 H 05/25/25 19:40 Resp 20 05/25/25 19:40 BP 124/84 05/25/25 19:40 Pulse Ox 96 05/25/25 19:40 O2 Del Method Room Air 05/25/25 19:40 Common normals: no apparent distress, average body habitus, oriented x3, no limitations, healthy appearing, alert and well nourished [facility] Face and sinus images:  1. hematoma Eye Common normals: PERRL and EOMs intact bilaterally Neck & C-Spine Other: neck in hard collar Chest Common normals: inspection of chest normal and palpation of chest normal Respiratory Common normals: normal respiratory effort, no retractions, no use of accessory muscles and clear to auscultation bilaterally Cardio Rhythm: abnormal rhythm GI Common normals: Normal to inspection, nondistended, normoactive bowel sounds present and soft to palpation Back & Pelvis Common normals: no CVA tenderness Other: mid thoracic spine tenderness Extremity Common normals: normal to inspection and full ROM Neuro Common normals: oriented x3, CN's II-XII intact bilaterally, moves all extremities and no focal motor deficits Psych Appearance: grossly normal Course Vital Signs Vital signs: Vital Signs Temperature 98.2 F 05/25/25 19:40 Pulse Rate 96 H 05/25/25 19:40 Respiratory Rate 20 05/25/25 19:40 Blood Pressure 124/84 05/25/25 19:40 Pulse Oximetry 96 05/25/25 19:40 Oxygen Delivery Method Room Air 05/25/25 19:40 Temperature 98.2 F 05/25/25 19:40 Pulse Rate 96 H 05/25/25 19:40 Respiratory Rate 20 05/25/25 19:40 Blood Pressure 124/84 05/25/25 19:40 Pulse Oximetry 96 05/25/25 19:40 Oxygen Delivery Method Room Air 05/25/25 19:40 MDM - Head Injury MDM Narrative Medical decision making narrative: Patient tripped and fell forward striking her right forehead. Neg LOC or nausea. Exam with finding of large right frontal hematoma and tenderness of her mid T spine. AxOx3 CT neg for acute findings other than the hematoma. Patient informed of the above and discharged home to follow up with her doctor for a recheck Discharge Plan Discharge Chief Complaint: Head Injury Clinical Impression: Head injury, Strain of thoracic back region Patient Disposition: Home, Self-Care Prescriptions / Home Meds: No Action atorvastatin 40 mg tablet 40 mg PO .QHS Patient Comments: takes at 6 pm ropinirole 1 mg tablet 1 mg PO .HS diltiazem HCl 180 mg capsule,extended release 24hr 180 mg PO DAILY Qty: 30 0RF amiodarone 200 mg tablet 200 mg PO .QD calcium carbonate-vitamin D3 600 mg-20 mcg (800 unit) tablet 1 tab PO DAILY cholecalciferol (vitamin D3) 25 mcg (1,000 unit) capsule 25 mcg PO DAILY One-A-Day Women's Complete 18 mg iron- 400 mcg tablet 1 tab PO QAM metoprolol succinate 50 mg tablet extended release 24 hr 50 mg PO DAILY duloxetine 30 mg capsule,delayed release(DR/EC) 30 mg PO DAILY Xarelto 20 mg tablet 20 mg PO DAILY furosemide 40 mg tablet 40 mg PO .QD acetaminophen [Tylenol] 325 mg Tablet 650 mg PO Q6H PRN (Reason: pain or fever) Qty: 0 0RF aspirin 81 mg Tablet,Delayed Release (Dr/Ec) 81 mg PO QD Qty: 30 2RF cefuroxime axetil 250 mg tablet 250 mg PO BID 5 Days Qty: 10 0RF potassium chloride 10 mEq tablet extended release 10 meq PO DAILY Qty: 30 1RF Print Language: Telugu Instructions: Head Injury (ED), Thoracic Back Strain (ED) Additional Instructions: follow up with your doctor in the next 2-3 days for recheck Referrals: Chester Mehta DO [Primary Care Provider, Internal Medicine] - 1 week
--- OUTSIDE RECORDS SUMMARY | 2025-05-25 19:56 | XMS_ITS | Encounter Summary ---
Author Organization [facility] Address [address] [place] [address] Phone Care Team Providers Care Certified Solid Waste Facility Operator Name Role Phone TysonChester Jovani MORENO Primary Care Provider [phone] Gustavo Garcia MD Unavailable [phone] Maxwell Stafford MD Unavailable [phone] Encounter Details Date Type Department Care Team (Late st Contact Info) Description 07/01/2024 Scanned Document [facility] [address] [place] [id number] Scanning, Generic Provider Social History Tobacco Use [...] any time in the past 12 m [facility], were you homeless or living in a penitentiary (including now)? No 03/21/2024 Comments Unknown Sex [...] Description 05/26/2025 2:40 PM EDT Office Visit [facility] 703 [facility] 250 [place] [address] Gustavo Garcia MD 703 [facility] 2, [address] [place] [address] 05/28/2025 9:00 AM EDT Appointment [address] [place] [address] Kirby Betancourt MD [address] [place] [address] 05/28/2025 12:00 PM EDT Hospital Encounter [address] [place] [address] Maxwell Stafford MD [address] [place] [address] Persistent atrial fibrillation (Multi) 05/28/2025 12:00 PM EDT - 05/28/2025 4:00 PM EDT Surgery [address] [place] [address] Maxwell Stafford MD [address] [place] [address] Ablation A-Fib [[id number] (CPT )] 05/29/2025 2:15 PM EDT Office Visit [facility] Medical Office Building [address] [address] Maxwell Stafford MD [address] [place] [address] documented as of this encounter Visit Diagnoses Not on filedocumented in this encounter Additional Health Concerns Assessment Noted Time A fall risk assessment has been complete d for the patient 04/24/2024 3:34 PM EDT documented as of this encounter Care Teams Certified Solid Waste Facility Operator Relationship Specialty Start Date End Date Chester Mehta DO [address] [place] [address] PCP - General Internal Medicine 08/09/23 Gustavo Garcia MD [address] [place] [address] 2, [facility] 250 [place] [address] Consulting Physician Cardiology 09/10/23 Maxwell Stafford MD [address] [place] [address] 130 [place] [address] Consulting Physician Cardiology 02/13/24 documented as of this encounter
--- OUTSIDE RECORDS SUMMARY | 2025-05-25 19:56 | XMS_ITS | Encounter Summary ---
Author Organization [facility] Address [address] [place] [address] Phone Care Team Providers Care Bed Worker Name Role Phone TysonChester Jovani MORENO Primary Care Provider Gustavo Garcia MD Unavailable [phone] Maxwell Stafford MD Unavailable [phone] Encounter Details Date Type Department Care Team (Late st Contact Info) Description 06/30/2024 Scanned Document [facility] [address] [place] [address] Scanning, Generic Provider Social History Tobacco Use [...] in the past 12 m [facility], were you homeless or living in a snf (including now)? No 03/21/2024 Comments Unknown Sex [...] 03/27/2024 1:02 PM EDT Avery nAg RN * Because of a physical, mental, [...] Description 05/26/2025 2:40 PM EDT Office Visit [facility] 703 [facility] 250 [place] [address] Gustavo Garcia MD 703 [facility] 2, [address] [place] [address] 05/28/2025 9:00 AM EDT Appointment [address] [place] [address] Kirby Betancourt MD [address] [place] [address] 05/28/2025 12:00 PM EDT Hospital Encounter [address] [place] [address] Maxwell Stafford MD [address] [place] [address] Persistent atrial fibrillation (Multi) 05/28/2025 12:00 PM EDT - 05/28/2025 4:00 PM EDT Surgery [address] [place] [address] Maxwell Stafford MD [address] [place] [address] Ablation A-Fib [[id number] (CPT )] 05/29/2025 2:15 PM EDT Office Visit [facility] Medical Office Building [address] [address] Maxwell Stafford MD [address] [place] [address] documented as of this encounter Procedures Procedure [...] documented as of this encounter Care Teams Bed Worker Relationship Specialty Start Date End Date Chester Mehta DO [address] [place] [address] PCP - General Internal Medicine 08/09/23 Gustavo Garcia MD 703 [facility] 2, [facility] 250 [place] [address] Consulting Physician Cardiology 09/10/23 Maxwell Stafford MD [address] [place] [address] 130 [place] [address] Consulting Physician Cardiology 02/13/24 documented as of this encounter
--- OUTSIDE RECORDS SUMMARY | 2025-05-25 19:56 | XMS_ITS | Encounter Summary ---
Author Organization [facility] Address [address] [place] [address] Phone Care Team Providers Care Professor Of Political Science Name Role Phone TysonChester Jovani MORENO Primary Care Provider [phone] Gustavo Garcia MD Unavailable [phone] Maxwell Stafford MD Unavailable [phone] Encounter Details Date Type Department Care Team (Late st Contact Info) Description 07/02/2024 Scanned Document [facility] [address] [place] [phone] Scanning, Generic Provider Social History Tobacco Use [...] any time in the past 12 m [facility], were you homeless or [...] Description 05/26/2025 2:40 PM EDT Office Visit [facility] 703 [facility] 250 [place] [address] Gustavo Garcia MD 703 [facility] 2, [address] [place] [address] 05/28/2025 9:00 AM EDT Appointment [address] [place] [address] Kirby Betancourt MD [address] [place] [address] 05/28/2025 12:00 PM EDT Hospital Encounter [address] [place] [address] Maxwell Stafford MD [address] [place] [address] Persistent atrial fibrillation (Multi) 05/28/2025 12:00 PM EDT - 05/28/2025 4:00 PM EDT Surgery [address] [place] [address] Maxwell Stafford MD [address] [place] [address] Ablation A-Fib [[id number] (CPT )] 05/29/2025 2:15 PM EDT Office Visit [facility] Medical Office Building [address] [address] Maxwell Stafford MD [address] [place] [address] documented as of this encounter Visit Diagnoses Not on filedocumented in this encounter Additional Health Concerns Assessment Noted Time A fall risk assessment has been complete d for the patient 04/24/2024 3:34 PM EDT documented as of this encounter Care Teams Professor Of Political Science Relationship Specialty Start Date End Date Chester Mehta DO [address] [place] [address] PCP - General Internal Medicine 08/09/23 Gustavo Garcia MD [address] [place] [address] 2, [facility] 250 [place] [address] Consulting Physician Cardiology 09/10/23 Maxwell tSafford MD [address] [place] [address] 130 [place] [address] Consulting Physician Cardiology 02/13/24 documented as of this encounter
--- OUTSIDE RECORDS SUMMARY | 2025-05-25 19:57 | XMS_ITS | Encounter Summary ---
Author Organization [facility] Address [address] [place] [address] Phone Care Team Providers Care Creative Lead Name Role Phone TysonChester Jovani MORENO Primary Care Provider [phone] Gustavo Garcia MD Unavailable [phone] Maxwell Stafford MD Unavailable [phone] Encounter Details Date Type Department Care Team (Late st Contact Info) Description 07/03/2024 Scanned Document [facility] [address] [place] [address] Scanning, Generic Provider Social History Tobacco Use [...] any time in the past 12 m [facility], were you homeless or living [...] Office Visit [facility] 703 [facility] 250 [place] [address] Gustavo Garcia MD 703 [facility] 2, [address] [place] [address] 05/28/2025 9:00 AM EDT Appointment [address] [place] [address] Kirby Betancourt MD [address] [place] [address] 05/28/2025 12:00 PM EDT Hospital Encounter [address] [place] [address] Maxwell Stafford MD [address] [place] [address] Persistent atrial fibrillation (Multi) 05/28/2025 12:00 PM EDT - 05/28/2025 4:00 PM EDT Surgery [address] [place] [address] Maxwell Stafford MD [address] [place] [address] Ablation A-Fib [[id number] (CPT )] 05/29/2025 2:15 PM EDT Office Visit [facility] Medical Office Building [address] [address] Maxwell Stafford MD [address] [place] [address] documented as of this encounter Visit Diagnoses Not on filedocumented in this encounter Additional Health Concerns Assessment Noted Time A fall risk assessment has been complete d for the patient 04/24/2024 3:34 PM EDT documented as of this encounter Care Teams Creative Lead Relationship Specialty Start Date End Date Chester Mehta DO [address] [place] [address] PCP - General Internal Medicine 08/09/23 Gustavo Garcia MD [address] [place] [address] 2, [facility] 250 [place] [address] Consulting Physician Cardiology 09/10/23 Maxwell Stafford MD [address] [place] [address] 130 [place] [address] Consulting Physician Cardiology 02/13/24 documented as of this encounter
--- OUTSIDE RECORDS SUMMARY | 2025-05-25 19:58 | XMS_ITS | Encounter Summary ---
Author Organization [facility] Address [address] [place] [address] Phone Care Team Providers Care Wet Roller Name Role Phone TysonChester Jovani MORENO Primary Care Provider Gustavo Garcia MD Unavailable [phone] Maxwell Stafford MD Unavailable [phone] Encounter Details Date Type Department Care Team (Late st Contact Info) Description 04/28/2025 Lab Requisition [facility] [address] [place] [address] Kalyn Sutherland PA-C [address] [facility] Medical Office Bldg, [address] [place] [address] Chronic kidney disease, stage 3a [...] time in the past [address] [facility], were you homeless or living in a detention (including now)? No 03/21/2024 Comments Unknown Sex and Gender Information Value Date Recorded Sex Assigned at Not on file Legal Sex Female 2:32 PM EST Gender Identity Not on file Sexual Orientation Not on file documented as of this encounter Functional Status * Landa Fall Risk Question Answer Date of Assessment Author History of Falling, Immediat e or Within 3 Months 0 05/01/2025 3:16 PM EDT Ayleen Ramos RN Secondary Diagnosis 0 05/01/2025 3:16 PM ED T Ayleen Ramos RN Ambulatory Aid 15 05/01/2025 3:16 PM EDT Ayleen Machuca RN Intravenous Therapy/Heparin Lock 20 05/01/20 25 3:16 PM EDT Ayleen Ramos RN Gait/Transferring 0 05/01/2025 3:16 PM EDT Ayleen Ramos RN Mental Status 0 05/01/2025 3:16 PM EDT Ayleen Kang RN Landa Fall Risk Score 35 05/01/2025 3:16 PM EDT Ayleen Ramos RN * Communicable Disease Screening Question Answer Date of Assessment Author Do you have any of the following new or worsening symptoms? None of these 05/01/2025 2:38 PM EDT Luis Alberto Izuqierdo * Are you deaf or do you [...] Description 05/26/2025 2:40 PM EDT Office Visit [address] [address] Gustavo Garcia MD [address] [place] [address], [address] [address] 05/28/2025 9:00 AM EDT Appointment [place] [address] [place] [address] Kirby Betancourt MD [address] [place] [address] 05/28/2025 12:00 PM EDT Hospital Encounter [place] [address] [place] [address] Maxwell Stafford MD [address] [place] [address] Persistent atrial fibrillation (Multi) 05/28/2025 12:00 PM EDT - 05/28/2025 4:00 PM EDT Surgery [place] [address] [place] [address] Maxwell Stafford MD [address] [address] Ablation A-Fib [[id number] (CPT )] 05/29/2025 2:15 PM EDT Office Visit [facility] Medical Office Building [address] [address] Maxwell Stafford MD [address] [address] documented as of this encounter Goals Goal [...] LAB CHEMISTRY METHOD 04/28/2025 3:28 PM EDT [facility] eGFR 30(L) >60 mL/min/1. 73m*2 LAB CHEMISTRY METHOD 04/28/2025 3:28 PM EDT [facility] Comment: Calculations of estimated GFR are performed using the 2020 CKD-EPI Study Refit equation without the race variable for the IDMS-Traceable creatinine methods. https://jasn.asnjournals.org/content//ASN.1014719913 Blood Venous blood specimen / Unknown 04/28/2025 12:52 PM EDT 04/28/2025 3:08 PM EDT us Kalyn Sutherland PA-C LAB BLOOD ORDERABLES Final Result [facility] [address] [place] [address] documented in this encounter Visit Diagnoses Diagnosis [...] documented as of this encounter Care Teams Wet Roller Relationship Specialty Start Date End Date Chester Mehta DO [address] [place] [address] PCP - General Internal Medicine 08/09/23 Gustavo Garcia MD 703 [facility] 2, [address] [place] [address] Consulting Physician Cardiology 09/10/23 Maxwell Stafford MD [address] [place] [address] 130 [place] [address] Consulting Physician Cardiology 02/13/24 documented as of this encounter
--- OUTSIDE RECORDS SUMMARY | 2025-05-25 19:58 | XMS_ITS | Encounter Summary ---
Author Organization [facility] Address [address] [place] [address] Phone Care Team Providers Care Regulatory Affairs Analyst Name Role Phone TysonChester Jovani MORENO Primary Care Provider [phone] Gustavo Garcia MD Unavailable [phone] Maxwell Stafford MD Unavailable [phone] Encounter Details Date Type Department Care Team (Late st Contact Info) Description 07/22/2024 Scanned Document [facility] [address] [place] [phone] Scanning, Generic Provider Social History Tobacco Use [...] any time in the past 12 m [facility], were you homeless or living in a [...] Description 05/26/2025 2:40 PM EDT Office Visit [facility] 703 [facility] 250 [place] [address] Gustavo Garcia MD 703 [facility] 2, [address] [place] [address] 05/28/2025 9:00 AM EDT Appointment [address] [place] [address] Kirby Betancourt MD [address] [place] [address] 05/28/2025 12:00 PM EDT Hospital Encounter [address] [place] [address] Maxwell Stafford MD [address] [place] [address] Persistent atrial fibrillation (Multi) 05/28/2025 12:00 PM EDT - 05/28/2025 4:00 PM EDT Surgery [address] [place] [address] Maxwell Stafford MD [address] [place] [address] Ablation A-Fib [05535 (CPT )] 05/29/2025 2:15 PM EDT [facility] [address] [place] [address] Maxwell Stafford MD [address] [place] [address] documented as of this encounter Visit Diagnoses Not on filedocumented in this encounter Additional Health Concerns Assessment Noted Time A fall risk assessment has been complete d for the patient 04/24/2024 3:34 PM EDT documented as of this encounter Care Teams Regulatory Affairs Analyst Relationship Specialty Start Date End Date Chester Mehta DO [address] [place] [address] PCP - General Internal Medicine 08/09/23 Gustavo Garcia MD [address] [place] [address] 2, [facility] 250 [place] [address] Consulting Physician Cardiology 09/10/23 Maxwell Stafford MD [address] [place] [address] 130 [place] [address] Consulting Physician Cardiology 02/13/24 documented as of this encounter
--- OUTSIDE RECORDS SUMMARY | 2025-05-25 19:58 | XMS_ITS | Encounter Summary ---
Author Organization [facility] Address [address] [place] [address] Phone Care Team Providers Care Delivery Rep Name Role Phone Chester Mehta DO Primary Care Provider [phone] Chester Mehta DO Primary Care Provider [phone] Gustavo Garcia MD Unavailable [phone] Maxwell Stafford MD Unavailable [phone] Sasha Dobbins RN Unavailable Unavailable Encounter Details Date Type Department Care Team (Late st Contact Info) Description 01/11/2022 Orders Only [facility] [address] [place] [address] Conversion, Onbase Social History Tobacco Use Types [...] EDT Office Visit [facility] 703 [facility] [address] [place] [address] Gustavo Garcia MD 703 [facility] 2, [address] [place] [address] 05/28/2025 9:00 AM EDT Appointment [place] [address] [place] [address] Kirby Betancourt MD [address] [place] [address] 05/28/2025 12:00 PM EDT Hospital Encounter [facility] [address] [place] [address] Maxwell Stafford MD [address] [place] [address] Persistent atrial fibrillation (Multi) 05/28/2025 12:00 PM EDT - 05/28/2025 4:00 PM EDT Surgery [address] [place] [address] Maxwell Stafford MD [address] [place] [address] Ablation A-Fib [[id number] (CPT )] 05/29/2025 2:15 PM EDT Office Visit [facility] Medical Office Building [address] [place] [address] Maxwell Stafford MD [address] [place] [address] Scheduled Orders Name Type Priority Associated Diagnoses Orde r Schedule OUTSIDE LAB SCAN Lab Ordered: 01/11/2022 documented as of this encounter Visit Diagnoses Not on filedocumented in this encounter Care Teams Delivery Rep Relationship Specialty Start Date End Date Chester Mehta DO PCP - General 08/20/99 08/08/23 Chester [place] [address] PCP - General Internal Medicine 08/09/23 Gustavo Garcia MD [address] [place] [address] 2, [address] [place] [address] Consulting Physician Cardiology 09/10/23 Maxwell Stafford MD [address] [place] [address] 130 [place] [address] Consulting Physician Cardiology 02/13/24 Sasha Dobbins, linen room supervisorEcologist Technician 03/28/24 04/28/24 documented as of this encounter
--- OUTSIDE RECORDS SUMMARY | 2025-05-25 19:58 | XMS_ITS | Encounter Summary ---
Author Organization [facility] Address [address] [place] [address] Phone Care Team Providers Care Chartered Wealth Manager Name Role Phone TysonChester Jovani MORENO Primary Care Provider [phone] Gustavo Garcia MD Unavailable [phone] Maxwell Stafford MD Unavailable [phone] Encounter Details Date Type Department Care Team (Late st Contact Info) Description 05/03/2025 Scanned Document [facility] [address] [place] [address] Scanning, Generic Provider Social History Tobacco Use [...] time in the past 12 m [facility], were you homeless or living [...] EDT Office Visit [facility] 703 [facility] 250 [place] [address] Gustavo Garcia MD 703 [facility] 2, [address] [place] [address] 05/28/2025 9:00 AM EDT Appointment [address] [place] [address] Kirby Betancourt MD [address] [place] [address] 05/28/2025 12:00 PM EDT Hospital Encounter [facility] 630 [place] [place] [address] Maxwell Stafford MD [address] [place] [address] Persistent atrial fibrillation (Multi) 05/28/2025 12:00 PM EDT - 05/28/2025 4:00 PM EDT Surgery [facility] 630 [place] [address] Maxwell Stafford MD [address] [place] [address] Ablation A-Fib [[id number] (CPT )] 05/29/2025 2:15 PM EDT Office Visit [facility] Medical Office Building [address] [place] [address] Maxwell Stafford MD [address] [place] [address] documented as of this encounter Goals Goal Patient Goal Type Associated Problems Recent Progress Patient-Stated? Author Autogenera anne marie Goal Care Plan Autogenerated Problem No Batch Discontinue, Automatic documented as of this encounter Procedures Procedure Name Priority Date/Time Associated Diagnosis Comments OUTSIDE IMAGING SCAN 05/03/2025 ECHOCARDIOGRAM 05/03/2025 documented in this encounter Results * Echocardiogram (05/03/2025) Narrative 05/03/2025 Ordered by an unspecified provider. us Generic Provider Scanning CV ECHO PROCEDURES Fin al Result * OUTSIDE IMAGING SCAN (05/03/2025) Anatomical Region Laterality Modality Other Narrative 05/03/2025 Ordered by an unspecified provider. us Generic Provider Scanning OUTSIDE SCAN Final Result documented in this encounter Visit Diagnoses Not on filedocumented in this encounter Additional Health Concerns Active Problems Noted Date Diagnosed Date Autogenerated Problem 04/08/2025 Assessment Noted Time A fall risk assessment has been complete d for the patient 09/05/2024 11:18 AM EST documented as of this encounter Care Teams Chartered Wealth Manager Relationship Specialty Start Date End Date Chester Mehta DO [address] [place] [address] PCP - General Internal Medicine 08/09/23 Gustavo Garcia MD 703 [facility] 2, [facility] 250 [place] [address] Consulting Physician Cardiology 09/10/23 Maxwell Stafford MD [address] [place] [address] 130 [place] [address] Consulting Physician Cardiology 02/13/24 documented as of this encounter
--- OUTSIDE RECORDS SUMMARY | 2025-05-25 19:58 | XMS_ITS | Encounter Summary ---
Author Organization [facility] Address [address] [place] [address] Phone Care Team Providers Care Chef Passenger Vessel Name Role Phone Tyson Chester Hahn DO Primary Care Provider [phone] Gustavo Garcia MD Unavailable [phone] Maxwell Stafford MD Unavailable [phone] Sasha Dobbins RN Unavailable Unavailable Reason for Visit * Reason Comments Med Refill Encounter Details Date Type Department Care Team (Late st Contact Info) Description 04/20/2024 Refill [facility] Medical Office Building [address] [place] [address] Maxwell Stafford MD [address] [place] [address] Longstanding persistent atrial fibrillation (Multi) Social History [...] in the past [address] [facility], were you homeless or living in a skilled nursing (including now)? No 03/21/2024 Comments Unknown Sex [...] Description 05/26/2025 2:40 PM EDT Office Visit [address] [address] Gustavo Garcia MD [address] [place] [address] 2, [facility] 250 [place] [address] 05/28/2025 9:00 AM EDT Appointment [address] [place] [address] Kirby Betancourt MD [address] [place] [address] 05/28/2025 12:00 PM EDT Hospital Encounter [facility] [address] [place] [address] Maxwell Stafford MD [address] [place] [address] Persistent atrial fibrillation (Multi) 05/28/2025 12:00 PM EDT - 05/28/2025 4:00 PM EDT Surgery [address] [place] [address] Maxwell Stafford MD [address] [place] [address] Ablation A-Fib [[id number] (CPT )] 05/29/2025 2:15 PM EDT Office Visit [facility] Medical Office Building [address] [place] [address] Maxwell Stafford MD [address] [place] [address] documented as of this encounter Visit Diagnoses Diagnosis Longstanding persistent atrial fibrillation (Multi) Persistent atrial fibrillation (Multi)- Primary Atrial fibrillation Persistent atrial fibrillation (Multi) Atrial fibrillation documented in this encounter Additional Health Concerns Assessment Noted Time A fall risk assessment has been complete d for the patient 11/28/2023 3:37 PM EDT documented as of this encounter Care Teams Chef Passenger Vessel Relationship Specialty Start Date End Date Chester Mehta DO [facility]6 [place] [place] [address] PCP - General Internal Medicine 08/09/23 Gustavo Garcia MD [address] [place] [address], [address] [address] Consulting Physician Cardiology 09/10/23 Maxwell Stafford MD [address] [place] [address] Consulting Physician Cardiology 02/13/24 Sasha Dobbins, rattle leak and squeak repairerAssembler For Puller Over Hand 03/28/24 04/28/24 documented as of this encounter
--- OUTSIDE RECORDS SUMMARY | 2025-05-25 19:58 | XMS_ITS | Encounter Summary ---
Author Organization [facility] Address [address] [place] [address] Phone Care Team Providers Care Farm Management Supervisor Name Role Phone Chester Mehta DO Primary Care Provider [phone] Chester Mehta DO Primary Care Provider [phone] Gustavo Garcia MD Unavailable [phone] Maxwell Stafford MD Unavailable [phone] Sasha Dobbins RN Unavailable Unavailable Encounter Details Date Type Department Care Team (Late st Contact Info) Description 03/09/2022 Orders Only [facility] LEGACY [address] [place] [address] Conversion, Onbase Social History Tobacco Use Types Packs/Day Years Used Date Smoking Tobacco: Never Assessed Comments Unknown Sex and Gender Information Value Date Recorded Sex Assigned at Not on file Legal Sex Female 2:32 PM EST Gender Identity Not on file Sexual Orientation Not on file documented as of this encounter Functional Status * BP Answer Date of Assessment Author 126/82 03/10/2022 10:53 AM EDT Conversi on, [employer] Touchworks Vitals * Pulse Answer Date of Assessment Author 78 03/10/2022 10:19 AM EDT Conversi on, [employer] Touch[employer] Vitals documented as of this encounter Plan of Treatment Upcoming Encounters Date Type Department Care Team (Latest Contact Info) Description 05/26/2025 2:40 PM EDT Office Visit [place] [address] [facility] [address] [place] [address] Gustavo Garcia MD 3 [facility] 2, [address] [place] [address] 05/28/2025 9:00 AM EDT Appointment [address] [place] [address] Kirby Betancourt MD [address] [place] [address] 05/28/2025 12:00 PM EDT Hospital Encounter [address] [place] [address] Maxwell Stafford MD [address] [place] [address] Persistent atrial fibrillation (Multi) 05/28/2025 12:00 PM EDT - 05/28/2025 4:00 PM EDT Surgery [address] [address] Maxwell Stafford MD [address] [place] [address] Ablation A-Fib [46780 (CPT )] 05/29/2025 2:15 PM EDT Office Visit [facility] Medical Office Building [address] [place] [address] Maxwell Stafford MD [address] [place] [address] Scheduled Orders Name Type Priority Associated Diagnoses Orde r Schedule OUTSIDE LAB SCAN Lab Ordered: 03/09/2022 documented as of this encounter Visit Diagnoses Not on filedocumented in this encounter Care Teams Farm Management Supervisor Relationship Specialty Start Date End Date Chester Mehta DO PCP - General 08/20/99 08/08/23 [place] [address] PCP - General Internal Medicine 08/09/23 Gustavo Garcia MD [address] [place] [address] 2, [facility] 250 [place] [address] Consulting Physician Cardiology 09/10/23 Maxwell Stafford MD [address] [place] [address] 130 [place] [address] Consulting Physician Cardiology 02/13/24 Sasha Dobbins, clerk checkerCorner Bead Operator 03/28/24 04/28/24 documented as of this encounter
--- OUTSIDE RECORDS SUMMARY | 2025-05-25 19:58 | XMS_ITS | Encounter Summary ---
Author Organization [facility] Address [address] [place] [address] Phone Care Team Providers Care Business Advisor Name Role Phone Chester Mehta DO Primary Care Provider [phone] Chester Mehta DO Primary Care Provider [phone] Gustavo Garcia MD Unavailable [phone] Maxwell Stafford MD Unavailable [phone] Sasha Dobbins RN Unavailable Unavailable Encounter Details Date Type Department Care Team (Late st Contact Info) Description 12/14/2020 Orders Only [facility] [address] [place] [address] Conversion, Onbase Social History Tobacco Use Types [...] 2:40 PM EDT Office Visit [facility] 703 [facility] [address] [place] [address] Gustavo Garcia MD 703 [facility] 2, [address] [place] [address] 05/28/2025 9:00 AM EDT Appointment [place] [address] [place] [address] Kirby Betancourt MD [address] [place] [address] 05/28/2025 12:00 PM EDT Hospital Encounter [facility] 630 [place] [place] [address] Maxwell Stafford MD [address] [place] [address] Persistent atrial fibrillation (Multi) 05/28/2025 12:00 PM EDT - 05/28/2025 4:00 PM EDT Surgery [facility] 630 [place] [place] [address] Maxwell Stafford MD [address] [place] [address] Ablation A-Fib [[id number] (CPT )] 05/29/2025 2:15 PM EDT Office Visit [facility] Medical Office Building [address] [place] [address] Maxwell Stafford MD [address] [place] [address] Scheduled Orders Name Type Priority Associated Diagnoses Orde r Schedule OUTSIDE LAB SCAN Lab Ordered: 12/14/2020 OUTSIDE LAB SCAN Lab Ordered: 12/14/2020 documented as of this encounter Visit Diagnoses Not on filedocumented in this encounter Care Teams Business Advisor Relationship Specialty Start Date End Date Chester Mehta DO PCP - General 08/20/99 08/08/23 Chester Mehta DO [facility]6 [place] [address] PCP - General Internal Medicine 08/09/23 Gustavo Garcia MD [address] [place] [address] 2, [facility] [address] [place] [address] Consulting Physician Cardiology 09/10/23 Maxwell Stafford MD 7 [facility] 130 [place] [address] Consulting Physician Cardiology 02/13/24 Sasha Dobbins, soap workerTransaction Advisory Services Manager 03/28/24 04/28/24 documented as of this encounter
--- OUTSIDE RECORDS SUMMARY | 2025-05-25 19:58 | XMS_ITS | Encounter Summary ---
Author Organization [facility] Address [address] [place] [address] Phone Care Team Providers Care Seasoner Hand Name Role Phone TysonChester Jovani MORENO Primary Care Provider Gustavo Garcia MD Unavailable [phone] Maxwell Stafford MD Unavailable [phone] Encounter Details Date Type Department Care Team (Late st Contact Info) Description 01/22/2025 Scanned Document [facility] [address] [place] [phone] Scanning, Generic Provider Social History Tobacco Use [...] any time in the past 12 m [facility], were you homeless or living in a jail (including now)? No 03/21/2024 Comments Unknown Sex [...] EDT Office Visit [facility] 703 [facility] 250 [place] [address] Gustavo Garcia MD 703 [facility] 2, [address] 250 [place] [address] 05/28/2025 9:00 AM EDT Appointment [address] [place] [address] Kirby Betancourt MD [address] [place] [address] 05/28/2025 12:00 PM EDT Hospital Encounter [facility] [address] [place] [address] Maxwell Stafford MD [address] [place] [address] Persistent atrial fibrillation (Multi) 05/28/2025 12:00 PM EDT - 05/28/2025 4:00 PM EDT Surgery [facility] [address] [place] [address] Maxwell Stafford MD [address] [place] [address] Ablation A-Fib [93736 (CPT )] 05/29/2025 2:15 PM EDT Office Visit [facility] Medical Office Building [address] [address] Maxwell Stafford MD [address] [place] [address] documented as of this encounter Procedures Procedure [...] documented as of this encounter Care Teams Seasoner Hand Relationship Specialty Start Date End Date Chester Mehta DO [address] [place] [address] PCP - General Internal Medicine 08/09/23 Gustavo Garcia MD 3 [facility] 250 [place] [address] Consulting Physician Cardiology 09/10/23 Maxwell Stafford MD [address] [place] [address] 130 [place] [address] Consulting Physician Cardiology 02/13/24 documented as of this encounter
--- OUTSIDE RECORDS SUMMARY | 2025-05-25 19:58 | XMS_ITS | Encounter Summary ---
Author Organization [facility] Address [address] [place] [address] Phone Care Team Providers Care Bricklayer Sewer Name Role Phone TysonChester Jovani MORENO Primary Care Provider Gustavo Garcia MD Unavailable [phone] Maxwell Stafford MD Unavailable [phone] Encounter Details Date Type Department Care Team (Late st Contact Info) Description 05/04/2025 Scanned Document [facility] [address] [place] [address] Scanning, Generic Provider Social History Tobacco Use [...] Description 05/26/2025 2:40 PM EDT Office Visit [facility] 703 [facility] 250 [place] [address] uGstavo Garcia MD 703 [facility] 2, [address] [place] [address] 05/28/2025 9:00 AM EDT Appointment [address] [place] [address] Kirby Betancourt MD [address] [place] [address] 05/28/2025 12:00 PM EDT Hospital Encounter [address] [place] [address] Maxwell Stafford MD [address] [place] [address] Persistent atrial fibrillation (Multi) 05/28/2025 12:00 PM EDT - 05/28/2025 4:00 PM EDT Surgery [facility] 630 [place] [address] Maxwell Stafford MD [address] [place] [address] Ablation A-Fib [86936 (CPT )] 05/29/2025 2:15 PM EDT Office Visit [facility] Medical Office [address] [address] Maxwell Stafford MD [address] [place] [address] documented as of this encounter Goals Goal [...] documented as of this encounter Care Teams Bricklayer Sewer Relationship Specialty Start Date End Date Chester Mehta DO [address] [place] [address] PCP - General Internal Medicine 08/09/23 Gustavo Garcia MD [address] [place] [address] 2, [facility] 250 [place] [address] Consulting Physician Cardiology 09/10/23 Maxwell Stafford MD [address] [place] [address] 130 [place] [address] Consulting Physician Cardiology 02/13/24 documented as of this encounter
--- OUTSIDE RECORDS SUMMARY | 2025-05-25 19:58 | XMS_ITS | Encounter Summary ---
Author Organization [facility] Address [address] [place] [address] Phone Care Team Providers Care Senior Tableau Developer Name Role Phone TysonChester Jovani MORENO Primary Care Provider [phone] Gustavo Garcia MD Unavailable [phone] Maxwell Stafford MD Unavailable [phone] Encounter Details Date Type Department Care Team (Late st Contact Info) Description 07/24/2024 Scanned Document [facility] [address] [place] [phone] Scanning, Generic Provider Social History Tobacco Use [...] any time in the past [address] [facility], were you homeless or living in a residential (including now)? No 03/21/2024 Comments Unknown Sex [...] Description 05/26/2025 2:40 PM EDT Office [facility] 703 [facility] 250 [place] [address] Gustavo Garcia MD 703 [facility] 2, [address] [place] [address] 05/28/2025 9:00 AM EDT Appointment [address] [place] [address] Kirby Betancourt MD [address] [place] [address] 05/28/2025 12:00 PM EDT Hospital Encounter [address] [place] [address] Maxwell Stafford MD [address] [place] [address] Persistent atrial fibrillation (Multi) 05/28/2025 12:00 PM EDT - 05/28/2025 4:00 PM EDT Surgery [address] [place] [address] Maxwell Stafford MD [address] [place] [address] Ablation A-Fib [13245 (CPT )] 05/29/2025 2:15 PM EDT Office Visit [facility] Medical Office Building [address] [place] [address] Maxwell Stafford MD [address] [place] [address] documented as of this encounter Visit Diagnoses Not on filedocumented in this encounter Additional Health Concerns Assessment Noted Time A fall risk assessment has been complete d for the patient 04/24/2024 3:34 PM EDT documented as of this encounter Care Teams Senior Tableau Developer Relationship Specialty Start Date End Date Chester Mehta DO [address] [place] [address] PCP - General Internal Medicine 08/09/23 Gustavo Garcia MD [address] [place] [address] 2, [facility] 250 [place] [address] Consulting Physician Cardiology 09/10/23 Maxwell Stafford MD [address] [place] [address] 130 [place] [address] Consulting Physician Cardiology 02/13/24 documented as of this encounter
--- OUTSIDE RECORDS SUMMARY | 2025-05-25 19:58 | XMS_ITS | Encounter Summary ---
Author Organization [facility] Address [address] [place] [address] Phone Care Team Providers Care Bench Machine Operator Name Role Phone Chester Mehta DO Primary Care Provider [phone] Chester Mehta DO Primary Care Provider [phone] Gustavo Garcia MD Unavailable [phone] Maxwell Stafford MD Unavailable [phone] Sasha Dobbins RN Unavailable Unavailable Encounter Details Date Type Department Care Team (Late st Contact Info) Description 12/16/2020 Orders Only [facility] LEGACY [address] [place] [address] Conversion, Onbase Social History Tobacco Use Types [...] Description 05/26/2025 2:40 PM EDT Office Visit [facility] 703 [facility] [address] [place] [address] Gustavo Garcia MD 703 [facility] 2, [address] [place] [address] 05/28/2025 9:00 AM EDT Appointment [place] [address] [place] [address] Kirby Betancourt MD [address] [place] [address] 05/28/2025 12:00 PM EDT Hospital Encounter [facility] 630 [facility] [place] [address] Maxwell Stafford MD [address] [place] [address] Persistent atrial fibrillation (Multi) 05/28/2025 12:00 PM EDT - 05/28/2025 4:00 PM EDT Surgery [address] [place] [address] Maxwell Stafford MD [address] [place] [address] Ablation A-Fib [74291 (CPT )] 05/29/2025 2:15 PM EDT Office Visit [facility] Medical Office Building [address] [place] [address] Maxwell Stafford MD [address] [place] [address] Scheduled Orders Name Type Priority Associated Diagnoses Orde r Schedule OUTSIDE LAB SCAN Lab Ordered: 12/16/2020 documented as of this encounter Visit Diagnoses Not on filedocumented in this encounter Care Teams Bench Machine Operator Relationship Specialty Start Date End Date Chester Mehta DO PCP - General 08/20/99 08/08/23 Chester [place] [address] PCP - General Internal Medicine 08/09/23 Gustavo Garcia MD [address] [place] [address] 2, [facility] [address] [place] [address] Consulting Physician Cardiology 09/10/23 Maxwell Stafford MD [address] [place] [address] 130 [place] [address] Consulting Physician Cardiology 02/13/24 Sasha Dobbins, marketing area managerShoe Turner 03/28/24 04/28/24 documented as of this encounter
--- OUTSIDE RECORDS SUMMARY | 2025-05-25 19:58 | XMS_ITS | Clinical Summary ---
Author Organization [facility] Address [address] [place] [address], [address] [place] [address] Care Team Providers Care Sanipractic Physician Name Role Phone Unavailable Primary Care Provider [...]
--- OUTSIDE RECORDS SUMMARY | 2025-05-25 19:58 | XMS_ITS | Encounter Summary ---
Author Organization [facility] Address [address] [place] [address] Phone Care Team Providers Care Agronomy Advisor Name Role Phone TysonChester Jovani MORENO Primary Care Provider [phone] Gustavo Garcia MD Unavailable [phone] Maxwell Stafford MD Unavailable [phone] Encounter Details Date Type Department Care Team (Late st Contact Info) Description 01/23/2025 Scanned Document [facility] [address] [place] [address] Scanning, Generic Provider Social History Tobacco Use [...] time in the past 12 m [facility], were you homeless or living in a [...] Office Visit [facility] 703 [facility] 250 [place] [address] Gustavo Garcia MD 703 [facility] 2, [facility] 250 [place] [address] 05/28/2025 9:00 AM EDT Appointment [address] [place] [address] Kirby Betancourt MD [address] [place] [address] 05/28/2025 12:00 PM EDT Hospital Encounter [address] [place] [address] Maxwell Stafford MD [address] [place] [address] Persistent atrial fibrillation (Multi) 05/28/2025 12:00 PM EDT - 05/28/2025 4:00 PM EDT Surgery [address] [place] [address] Maxwell Stafford MD [address] [place] [address] Ablation A-Fib [93113 (CPT )] 05/29/2025 2:15 PM EDT Office Visit [facility] Medical Office Building [address] [address] Maxwell Stafford MD [address] [place] [address] documented as of this encounter Visit Diagnoses Not on filedocumented in this encounter Additional Health Concerns Assessment Noted Time A fall risk assessment has been complete d for the patient 09/05/2024 11:18 AM EST documented as of this encounter Care Teams Agronomy Advisor Relationship Specialty Start Date End Date Chester Mehta DO Domenic [place] [address] PCP - General Internal Medicine 08/09/23 Gustavo Garcia MD [address] [place] [address] 2, [facility] 250 [place] [address] Consulting Physician Cardiology 09/10/23 Maxwell Stafford MD [address] [place] [address] 130 [place] [address] Consulting Physician Cardiology 02/13/24 documented as of this encounter
--- OUTSIDE RECORDS SUMMARY | 2025-05-25 19:58 | XMS_ITS | Encounter Summary ---
Author Organization [facility] Address [address] [place] [address] Phone Care Team Providers Care Telescope Maintenance Name Role Phone TysonChester Jovani MORENO Primary Care Provider [phone] Gustavo Garcia MD Unavailable [phone] Maxwell Stafford MD Unavailable [phone] Encounter Details Date Type Department Care Team (Late st Contact Info) Description 07/21/2024 Scanned Document [facility] [address] [place] [address] Scanning, Generic Provider Social History Tobacco Use [...] were you homeless or living in a long-term (including now)? No 03/21/2024 Comments Unknown Sex [...] Assessment Author No 03/27/2024 1:02 PM Avery Figueora RN documented as of this encounter Mental [...] Office Visit [facility] 703 [facility] 250 [place] [address] Gustavo Garcia MD 703 [facility] 2, [address] [place] [address] 05/28/2025 9:00 AM EDT Appointment [address] [place] [address] Kirby Betancourt MD [address] [place] [address] 05/28/2025 12:00 PM EDT Hospital Encounter [address] [place] [address] Maxwell Stafford MD [address] [place] [address] Persistent atrial fibrillation (Multi) 05/28/2025 12:00 PM EDT - 05/28/2025 4:00 PM EDT Surgery [address] [place] [address] Maxwell Stafford MD [address] [place] [address] Ablation A-Fib [18168 (CPT )] 05/29/2025 2:15 PM EDT Office Visit [facility] Medical Office Building [address] [address] Maxwell Stafford MD [address] [place] [address] documented as of this encounter Procedures Procedure [...] documented as of this encounter Care Teams Telescope Maintenance Relationship Specialty Start Date End Date Chester Mehta DO [address] [place] [address] PCP - General Internal Medicine 08/09/23 Gustavo Garcia MD 703 [facility] 2, [facility] 250 [place] [address] Consulting Physician Cardiology 09/10/23 Maxwell Stafford MD [address] [place] [address] 130 [place] [address] Consulting Physician Cardiology 02/13/24 documented as of this encounter
--- OUTSIDE RECORDS SUMMARY | 2025-05-25 19:59 | XMS_ITS | Encounter Summary ---
Author Organization [facility] Address [address] [place] [place] [address] Phone Care Team Providers Care Icer Machine Name Role Phone TysonChester Primary Care Provider [phone] Gustavo Garcia MD Unavailable [phone] Maxwell Stafford MD Unavailable [phone] Sasha Dobbins RN Unavailable Unavailable Encounter Details Date Type Department Care Team (Late st Contact Info) Description 01/20/2024 Scanned Document [facility] [address] [place] [phone] Scanning, Generic Provider Social History Tobacco Use [...] as of this encounter Functional Status * Question Answer Date of Assessment Author BP 134/94 01/22/2024 12:46 PM EDT Bend erMillie LPN Pulse 71 01/22/2024 12:46 PM EDT Bend er, Millie, TURBINE SUBASSEMBLER * Communicable Disease Screening Question Answer Date of Assessment Author Do you have any of the following new or worsening symptoms? None of these 01/22/2024 11:41 AM EDT Diane Fung documented as of this encounter Plan of Treatment Upcoming Encounters Date Type Department Care Team (Latest Contact Info) Description 05/26/2025 2:40 PM EDT Office Visit [address] 250 [place] [address] Gustavo Garcia MD [address] [place] [address] 2, [address] [place] [address] 05/28/2025 9:00 AM EDT Appointment [address] [place] [address] Kirby Betancourt MD [address] [place] [address] 05/28/2025 12:00 PM EDT Hospital Encounter [address] [place] [address] Maxwell Stafford MD [address] [place] [address] Persistent atrial fibrillation (Multi) 05/28/2025 12:00 PM EDT - 05/28/2025 4:00 PM EDT Surgery [address] [address] Maxwell Stafford MD [address] [place] [address] Ablation A-Fib [35430 (CPT )] 05/29/2025 2:15 PM EDT Office Visit [facility] [address] [address] Maxwell Stafford MD [address] [place] [address] documented as of this encounter Visit Diagnoses Not on filedocumented in this encounter Additional Health Concerns Assessment Noted Time A fall risk assessment has been complete d for the patient 11/28/2023 3:37 PM EDT documented as of this encounter Care Teams Icer Machine Relationship Specialty Start Date End Date Chester Mehta DO [address] [place] [address] PCP - General Internal Medicine 08/09/23 Gustavo Garcia MD 703 [facility] 2, [facility] 250 [place] [address] Consulting Physician Cardiology 09/10/23 Maxwell Stafford MD 917 [facility] 130 [place] [address] Consulting Physician Cardiology 02/13/24 Sasha Dobbins, medical records technicianCoal Sampler 03/28/24 04/28/24 documented as of this encounter
--- OUTSIDE RECORDS SUMMARY | 2025-05-25 19:59 | XMS_ITS | Encounter Summary ---
Author Organization [facility] Address [address] [place] [address] Phone Care Team Providers Care Tooling Engineering Tech Name Role Phone Chester Mehta DO Primary Care Provider [phone] Chester Mehta DO Primary Care Provider [phone] Gustavo Garcia MD Unavailable [phone] Maxwell Stafford MD Unavailable [phone] Sasha Dobbins RN Unavailable Unavailable Encounter Details Date Type Department Care Team (Late st Contact Info) Description 05/16/2021 Orders Only [facility] [address] [place] [address] Conversion, Onbase Social History Tobacco Use Types [...] Description 05/26/2025 2:40 PM EDT Office Visit [facility] 703 [facility] [address] [place] [address] Gustavo Garcia MD 703 [facility] 2, [address] [place] [address] 05/28/2025 9:00 AM EDT Appointment [place] [address] [place] [address] Kirby Betancourt MD [address] [place] [address] 05/28/2025 12:00 PM EDT Hospital Encounter [facility] [place] [address] [place] [address] Maxwell Stafford MD [address] [place] [address] Persistent atrial fibrillation (Multi) 05/28/2025 12:00 PM EDT - 05/28/2025 4:00 PM EDT Surgery [address] [place] [address] Maxwell Stafford MD [address] [place] [address] Ablation A-Fib [53554 (CPT )] 05/29/2025 2:15 PM EDT Office Visit [facility] [address] [place] [address] Maxwell Stafford MD [address] [place] [address] Scheduled Orders Name Type Priority Associated Diagnoses Orde r Schedule OUTSIDE LAB SCAN Lab Ordered: 05/16/2021 documented as of this encounter Visit Diagnoses Not on filedocumented in this encounter Care Teams Tooling Engineering Tech Relationship Specialty Start Date End Date Chester Mehta DO PCP - General 08/20/99 08/08/23 [place] [address] PCP - General Internal Medicine 08/09/23 Gustavo Garcia MD [address] [place] [address] 2, [address] [place] [address] Consulting Physician Cardiology 09/10/23 Maxwell Stafford MD [address] [place] [address] 130 [place] [address] Consulting Physician Cardiology 02/13/24 Sasha Dobbins, ecotherapistCommercial Maintenance Technician 03/28/24 04/28/24 documented as of this encounter
--- OUTSIDE RECORDS SUMMARY | 2025-05-25 19:59 | XMS_ITS | Encounter Summary ---
Author Organization [facility] Address [address] [place] [address] Phone Care Team Providers Care Layout Former Name Role Phone TysonChester Primary Care Provider [phone] Gustavo Garcia MD Unavailable [phone] Maxwell Stafford MD Unavailable [phone] Sasha Dobbins RN Unavailable Unavailable Encounter Details Date Type Department Care Team (Late st Contact Info) Description 02/07/2024 Scanned Document [facility] [address] [place] [address] Scanning, Generic Provider Social History Tobacco Use [...] Description 05/26/2025 2:40 PM EDT Office Visit [place] [address] [address] Gustavo Garcia MD 703 [facility] 2, [address] 250 [place] [address] 05/28/2025 9:00 AM EDT Appointment [facility] 630 [place] [address] Kirby Betancourt MD [address] [place] [address] 05/28/2025 12:00 PM EDT Hospital Encounter [facility] 630 [place] [address] Maxwell Stafford MD [address] [place] [address] Persistent atrial fibrillation (Multi) 05/28/2025 12:00 PM EDT - 05/28/2025 4:00 PM EDT Surgery [address] [place] [address] Maxwell Stafford MD [address] [place] [address] Ablation A-Fib [77587 (CPT )] 05/29/2025 2:15 PM EDT Office Visit [facility] Office Building [address] [place] [address] Maxwell Stafford MD [address] [place] [address] documented as of this encounter Procedures Procedure [...] documented as of this encounter Care Teams Layout Former Relationship Specialty Start Date End Date Chester Mehta DO [address] [place] [address] PCP - General Internal Medicine 08/09/23 Gustavo Garcia MD [address] [place] [address] 2, [facility] 250 [place] [address] Consulting Physician Cardiology 09/10/23 Maxwell Stafford MD [address] [place] [address] 130 [place] [address] Consulting Physician Cardiology 02/13/24 Sasha Dobbins, catering serverDining Car Hop 03/28/24 04/28/24 documented as of this encounter
--- OUTSIDE RECORDS SUMMARY | 2025-05-25 19:59 | XMS_ITS | Clinical Summary ---
Author Organization [facility] Address [address] [place] [address] Care Team Providers Care Technical Writing Lead/Mgr Name Role Phone TysonChester Primary Care Provider [phone] Allergies Active Allergy Reactions Criticality Noted Date [...] mg before bedtime. 4 Active HYDROcodone-acet aminophen ([place]) 10-325 MG tablet 1 tablet 4 Active [...] days. 30 capsule 5 05/10/20 25 Active Problems Problem Noted Date Diagnosed Date [...] iron deficiency anemia: Followed by Dr. Cash ([facility] hematology). Last iron infusion was December 2014. Today 08/26/2015 H&H . Plan: - Monitor CBC - Monitor SOB, [...] Encounters Date Type Department Care Team Description 05/07/2025 3:10 PM EDT Office Visit [facility] [address] [facility] 120 [place] [address] Joseph Dobbins, DPM Cellulitis of left foot (Primary Dx); Acquired deformity of left toe; Acquired deformity of right toe; Exostosis of left foot 05/07/2025 Bamboo flowsheet [facility] 112 [facility] 120 [place] [address] Joseph Dobbins DPM 05/07/2025 Travel 04/30/2025 4:00 PM EDT Procedure Visit [facility] 112 [facility] [address] [place] [address] Joseph Dobbins, NICK Cellulitis of left foot (Primary Dx); Pain due to onychomycosis of toenails of both feet; Acquired deformity of left toe; Acquired deformity of right toe; Foot ulcer, left, with fat layer exposed (HCC) 04/30/2025 Bamboo flowsheet [facility] 112 [facility] 120 [place] [address] Joseph Dobbins DPM 04/30/2025 Travel from Last 3 Months Immunizations Immunization [...] - - Temperature - - Respiratory Rate 16 05/07/2025 3:00 PM EDT Oxygen Saturation - - Inhaled Oxygen Concentration - - Weight 54.9 kg (121 lb) 05/07/2025 3:00 PM EDT Height 149.9 cm (4' 11 ) 05/07/2025 3:00 PM EDT Body Mass Index 24.44 05/07/2025 3:00 PM EDT Plan of Treatment Upcoming Encounters Date Type Department Care Team (Late st Contact Info) Description 07/23/2025 4:20 PM EST Procedure Visit [facility] [address] [facility] 120 [place] [address] Joseph Dobbins DPM 3000 [facility] 5 [place] [address] Health Maintenance Due Date Last Done Comments Influenza Vaccine (#1) 2025 2, 05/20/2020, 05/05/2020, Additional history exists Pneumococcal Vaccine: 65+ Years Completed 05/03/2025, 11/07/2018, 03/20/2015 Insurance [employer] Care Teams Technical Writing Lead/Mgr Relationship Specialty Start Date End Date Chester Mehta DO [address] [facility] [place] [address] PCP - General Internal Medicine 02/14/23
--- OUTSIDE RECORDS SUMMARY | 2025-05-25 19:59 | XMS_ITS | Encounter Summary ---
Author Organization [facility] Address [address] [place] [address] Care Team Providers Care Mold Shop Supervisor Name Role Phone Chester Mehta DO Primary Care Provider [phone] Encounter Details Date Type Department Care Team (Late Contact Info) Description 02/21/2023 Abstract [facility] 703 [facility] 150 [place] [address] Wilbur Watson DO 703 [facility] 150 [place] [address] Social History Tobacco Use Types [...] Department Care Team (Late Contact Info) Description 07/23/2025 4:20 PM EST Procedure Visit [facility] 112 [facility] 120 [place] [address] Joseph Dobbins DPM 3006 [facility] 5 [place] [address] documented as of this encounter Visit Diagnoses Not on filedocumented in this encounter Care Teams Mold Shop Supervisor Relationship Specialty Start Date End Date Chester Mehta DO 1255 [place] [address] PCP - General Internal Medicine 02/14/23 documented as of this encounter
--- OUTSIDE RECORDS SUMMARY | 2025-05-25 19:59 | XMS_ITS | Encounter Summary ---
Author Organization [facility] Address [address] [place] [address] Phone Care Team Providers Care Fast Foods Worker Name Role Phone Chester Mehta DO Primary Care Provider [phone] Gustavo Garcia MD Unavailable [phone] Maxwell Stafford MD Unavailable [phone] Sasha Dobbins RN Unavailable Unavailable Encounter Details Date Type Department Care Team (Late st Contact Info) Description 01/18/2024 Scanned Document [facility] [address] [place] [address] Scanning, Generic Provider Social History Tobacco Use [...] Description 05/26/2025 2:40 PM EDT Office Visit [facility] 703 [facility] 250 [place] [address] Gustavo Garcia MD 703 [facility] 2, [address] [place] [address] 05/28/2025 9:00 AM EDT Appointment [facility] [address] [facility] [place] [address] Kirby Betancourt MD [address] [place] [address] 05/28/2025 12:00 PM EDT Hospital Encounter [address] [place] [address] Maxwell Stafford MD [address] [place] [address] Persistent atrial fibrillation (Multi) 05/28/2025 12:00 PM EDT - 05/28/2025 4:00 PM EDT Surgery [facility] [address] [facility] [place] [address] Maxwell Stafford MD [address] [place] [address] Ablation A-Fib [73509 (CPT )] 05/29/2025 2:15 PM EDT Office Visit [facility] Medical Office Building [address] [place] [address] Maxwell Stafford MD [address] [place] [address] documented as of this encounter Procedures Procedure [...] documented as of this encounter Care Teams Fast Foods Worker Relationship Specialty Start Date End Date Chester Mehta DO [address] [place] [address] PCP - General Internal Medicine 08/09/23 Gustavo Garcia MD [address] [place] [address] 2, [facility] 250 [place] [address] Consulting Physician Cardiology 09/10/23 Maxwell Stafford MD [address] [place] [address] 130 [place] [address] Consulting Physician Cardiology 02/13/24 Sasha Dobbins, heel turnerBay Stocker 03/28/24 04/28/24 documented as of this encounter
--- OUTSIDE RECORDS SUMMARY | 2025-05-25 19:59 | XMS_ITS | Encounter Summary ---
Author Organization [facility] Address [address] [facility] [place] [address] Care Team Providers Care Pci Security Consultant Name Role Phone Sam Mcdaniels MD Unavailable [phone] Michelet Painting MD Unavailable Encounter Details Date Type Department Care Team (Late st Contact Info) Description 11/26/2024 Hospital Encounter [facility] [address] [place] [address] [id number] Reggie Gutiérrez MD [address] [place] [address] [place] [address] Social History Tobacco Use Types Packs/Day Years [...] on filedocumented in this encounter Care Teams Pci Security Consultant Relationship Specialty Start Date End Date Sam Mcdaniels MD [address] [place] [address] [place] [address] Physician Gastroenterology 07/26/24 Michelet Painting MD [address] [place] [address] Physician General Surgery 01/24/25 documented as of this encounter
--- OUTSIDE RECORDS SUMMARY | 2025-05-25 19:59 | XMS_ITS | Encounter Summary ---
Author Organization [facility] Address [address] [place] [address] Phone Care Team Providers Care Triage Rn Name Role Phone Chester Mehta DO Primary Care Provider [phone] Chester Mehta DO Primary Care Provider [phone] Gustavo Garcia MD Unavailable [phone] Maxwell Stafford MD Unavailable [phone] Sasha Dobbins RN Unavailable Unavailable Encounter Details Date Type Department Care Team (Late st Contact Info) Description 04/11/2021 Orders Only [facility] [address] [place] [address] Conversion, Onbase Social History Tobacco Use Types [...] Description 05/26/2025 2:40 PM EDT [facility] Visit [facility] 703 [facility] [address] [place] [address] Gustavo Garcia MD 703 [facility] 2, [address] [place] [address] 05/28/2025 9:00 AM EDT Appointment [place] [address] [place] [address] Kirby Betancourt MD [address] [place] [address] 05/28/2025 12:00 PM EDT Hospital Encounter [facility] 630 [facility] [place] [address] Maxwell Stafford MD [address] [place] [address] Persistent atrial fibrillation (Multi) 05/28/2025 12:00 PM EDT - 05/28/2025 4:00 PM EDT Surgery [address] [place] [address] Maxwell Stafford MD [address] [place] [address] Ablation A-Fib [[id number] (CPT )] 05/29/2025 2:15 PM EDT Office Visit [facility] Medical Office Building [address] [place] [address] Maxwell Stafford MD [address] [place] [address] Scheduled Orders Name Type Priority Associated Diagnoses Orde r Schedule OUTSIDE LAB SCAN Lab Ordered: 04/11/2021 documented as of this encounter Visit Diagnoses Not on filedocumented in this encounter Care Teams Triage Rn Relationship Specialty Start Date End Date Chester Mehat DO PCP - General 08/20/99 08/08/23 Chester [place] [address] PCP - General Internal Medicine 08/09/23 Gustavo Garcia MD [address] [place] [address] 2, [address] [place] [address] Consulting Physician Cardiology 09/10/23 Maxwell Stafford MD [address] [place] [address] 130 [place] [address] Consulting Physician Cardiology 02/13/24 Sasha Dobbins, carton lettering machine operatorPaintings Restorer 03/28/24 04/28/24 documented as of this encounter
--- OUTSIDE RECORDS SUMMARY | 2025-05-25 19:59 | XMS_ITS | Encounter Summary ---
Author Organization [facility] Address [address] [place] [address] Phone Care Team Providers Care Retail Banking Manager Name Role Phone TysonChester Primary Care Provider [phone] Gustavo Garcia MD Unavailable [phone] Maxwell Stafford MD Unavailable [phone] Sasha Dobbins RN Unavailable Unavailable Encounter Details Date Type Department Care Team (Late st Contact Info) Description 09/24/2023 Scanned Document [facility] [address] [place] [address] Scanning, Generic Provider Social History Tobacco Use [...] Description 05/26/2025 2:40 PM EDT Office Visit [address] [address] Gustavo Garcia MD 703 [facility] 2, [address] [place] [address] 05/28/2025 9:00 AM EDT Appointment [address] [place] [address] Kirby Betancourt MD [address] [place] [address] 05/28/2025 12:00 PM EDT Hospital Encounter [facility] 630 [place] [address] Maxwell Stafford MD [address] [place] [address] Persistent atrial fibrillation (Multi) 05/28/2025 12:00 PM EDT - 05/28/2025 4:00 PM EDT Surgery [address] [place] [address] Maxwell Stafford MD [address] [place] [address] Ablation A-Fib [[id number] (CPT )] 05/29/2025 2:15 PM EDT Office Visit [facility] Office Building [address] [place] [address] Maxwell Stafford MD [address] [place] [address] documented as of this encounter Procedures Procedure [...] documented as of this encounter Care Teams Retail Banking Manager Relationship Specialty Start Date End Date Chester Mehta DO [address] [place] [address] PCP - General Internal Medicine 08/09/23 Gustavo Garcia MD 703 [facility] 2, [facility] 250 [place] [address] Consulting Physician Cardiology 09/10/23 Maxwell Stafford MD [address] [place] [address] 130 [place] [address] Consulting Physician Cardiology 02/13/24 Sasha Dobbins, detasseling crew supervisorScoreboard Operator 03/28/24 04/28/24 documented as of this encounter
--- OUTSIDE RECORDS SUMMARY | 2025-05-25 19:59 | XMS_ITS | Encounter Summary ---
Author Organization [facility] Address [address] [place] [address] Phone Care Team Providers Care Metal Leaf Layer Name Role Phone Chester Mehta DO Primary Care Provider [phone] Chester Mehta DO Primary Care Provider [phone] Gustavo Garcia MD Unavailable [phone] Maxwell Stafford MD Unavailable [phone] Sasha Dobbins RN Unavailable Unavailable Encounter Details Date Type Department Care Team (Late st Contact Info) Description 01/02/2023 Orders Only [facility] [address] [place] [address] Conversion, Onbase Social History Tobacco Use Types Packs/Day Years Used Date Smoking Tobacco: Never Assessed Comments Unknown Sex and Gender Information Value Date Recorded Sex Assigned at Not on file Legal Sex Female 2:32 PM EST Gender Identity Not on file Sexual Orientation Not on file documented as of this encounter Functional Status * BP Answer Date of Assessment Author 128/88 01/04/2023 2:23 PM EDT Conversio n, [employer] Touchworks Vitals * Pulse Answer Date of Assessment Author 76 01/04/2023 2:23 PM EDT Conversio n, [employer] Touchworks Vitals documented as of this encounter Plan of Treatment Upcoming Encounters Date Type Department Care Team (Latest Contact Info) Description 05/26/2025 2:40 PM EDT Office Visit [place] [address] [facility] [address] [place] [address] Gustavo Garcia MD [address], [address] [place] [address] 05/28/2025 9:00 AM EDT Appointment [address] [place] [address] Kirby Betancourt MD [address] [place] [address] 05/28/2025 12:00 PM EDT Hospital Encounter [address] [place] [address] Maxwell Stafford MD [address] [place] [address] Persistent atrial fibrillation (Multi) 05/28/2025 12:00 PM EDT - 05/28/2025 4:00 PM EDT Surgery [address] [address] Maxwell Stafford MD [address] [place] [address] Ablation A-Fib [95741 (CPT )] 05/29/2025 2:15 PM EDT Office Visit [facility] Medical Office Building [address] [place] [address] Maxwell Stafford MD [address] [place] [address] Scheduled Orders Name Type Priority Associated Diagnoses Orde r Schedule OUTSIDE LAB SCAN Lab Ordered: 01/02/2023 documented as of this encounter Visit Diagnoses Not on filedocumented in this encounter Care Teams Metal Leaf Layer Relationship Specialty Start Date End Date Chester Mehta DO PCP - General 08/20/99 08/08/23 [place] [address] PCP - General Internal Medicine 08/09/23 Gustavo Garcia MD [address] [place] [address] 2, [facility] 250 [place] [address] Consulting Physician Cardiology 09/10/23 Maxwell Stafford MD [address] [place] [address] 130 [place] [address] Consulting Physician Cardiology 02/13/24 Sasha Dobbins, set designerBore Mill Operator 03/28/24 04/28/24 documented as of this encounter
--- OUTSIDE RECORDS SUMMARY | 2025-05-25 19:59 | XMS_ITS | Encounter Summary ---
Author Organization [facility] Address [address] [place] [address] Phone Care Team Providers Care Shirt Trimmer Name Role Phone TysonChester Primary Care Provider [phone] Gustavo Garcia MD Unavailable [phone] Maxwell Stafford MD Unavailable [phone] Sasha Dobbins RN Unavailable Unavailable Encounter Details Date Type Department Care Team (Late st Contact Info) Description 02/08/2024 Scanned Document [facility] [address] [place] [id number] Scanning, Generic Provider Social History Tobacco Use [...] Description 05/26/2025 2:40 PM EDT Office Visit [place] [id number] [address] Gustavo Garcia MD 703 [facility] 2, [address] [place] [address] 05/28/2025 9:00 AM EDT Appointment [address] [place] [address] Kirby Betancourt MD [address] [place] [address] 05/28/2025 12:00 PM EDT Hospital Encounter [address] [place] [address] Maxwell Stafford MD [address] [place] [address] Persistent atrial fibrillation (Multi) 05/28/2025 12:00 PM EDT - 05/28/2025 4:00 PM EDT Surgery [address] [place] [address] Maxwell Stafford MD [address] [place] [address] Ablation A-Fib [28170 (CPT )] 05/29/2025 2:15 PM EDT Office Visit [facility] Medical [facility] Building [address] [place] [address] Maxwell Stafford MD [address] [place] [address] documented as of this encounter Visit Diagnoses Not on filedocumented in this encounter Additional Health Concerns Assessment Noted Time A fall risk assessment has been complete d for the patient 11/28/2023 3:37 PM EDT documented as of this encounter Care Teams Shirt Trimmer Relationship Specialty Start Date End Date [place] [address] PCP - General Internal Medicine 08/09/23 Gustavo Garcia MD [address] [place] [address], [facility] [address] [place] [address] Consulting Physician Cardiology 09/10/23 Maxwell Stafford MD [address] [place] [address] 130 [place] [address] Consulting Physician Cardiology 02/13/24 Sasha Dobbins, undercoat sprayerMetal Ceiling Builder 03/28/24 04/28/24 documented as of this encounter
--- OUTSIDE RECORDS SUMMARY | 2025-05-25 19:59 | XMS_ITS | Encounter Summary ---
Author Organization [facility] Address [address] [place] [address] Phone Care Team Providers Care Hydrometer Finisher Name Role Phone Chester Mehta DO Primary Care Provider [phone] Chester Mehta DO Primary Care Provider Gustavo Garcia MD Unavailable [phone] Maxwell Stafford MD Unavailable [phone] Sasha Dobbins RN Unavailable Unavailable Encounter Details Date Type Department Care Team (Late st Contact Info) Description 12/15/2020 Orders Only [facility] [address] [place] [address] Abdifatah Madison MD [address] [facility] dg, [address] [place] [address] Social History Tobacco Use Types [...] Description 05/26/2025 2:40 PM EDT Office Visit [address] [place] [address] Gustavo Garcia MD 703 [facility] 2, [address] [place] [address] 05/28/2025 9:00 AM EDT Appointment [address] [place] [address] Kirby Betancourt MD [address] [place] [address] 05/28/2025 12:00 PM EDT Hospital Encounter [address] [place] [address] Maxwell Stafford MD [address] [place] [address] Persistent atrial fibrillation (Multi) 05/28/2025 12:00 PM EDT - 05/28/2025 4:00 PM EDT Surgery [address] [place] [address] Maxwell Stafford MD [address] [place] [address] Ablation A-Fib [[id number] (CPT )] 05/29/2025 2:15 PM EDT Office Visit [facility] Medical Office Building [address] [place] [address] Maxwell Stafford MD [address] [place] [address] Scheduled Orders Name Type Priority Associated Diagnoses Orde r Schedule OUTSIDE LAB SCAN Lab Ordered: 12/15/2020 documented as of this encounter Visit Diagnoses Not on filedocumented in this encounter Care Teams Hydrometer Finisher Relationship Specialty Start Date End Date Chester Mehta DO PCP - General 08/20/99 08/08/23 Chester Mehta DO Domenic Wick [facility] [place] [address] PCP - General Internal Medicine 08/09/23 Gustavo Garcia MD [address] [place] [address] 2, [facility] 250 [place] [address] Consulting Physician Cardiology 09/10/23 Maxwell Stafford MD [address] [place] [address] 130 [place] [address] Consulting Physician Cardiology 02/13/24 Sasha Dobbins, manager imageGrinding Mill Operator 03/28/24 04/28/24 documented as of this encounter
--- OUTSIDE RECORDS SUMMARY | 2025-05-25 19:59 | XMS_ITS | Encounter Summary ---
Author Organization [facility] Address [address] [place] [address] Phone Care Team Providers Care Airport Operations Duty Manager Name Role Phone TysonChester Primary Care Provider [phone] Gustavo Garcia MD Unavailable [phone] Maxwell Stafford MD Unavailable [phone] Sasha Dobbins RN Unavailable Unavailable Encounter Details Date Type Department Care Team (Late st Contact Info) Description 09/13/2023 Scanned Document [facility] [address] [place] [phone] Scanning, Generic Provider Social History Tobacco Use [...] Description 05/26/2025 2:40 PM EDT Office Visit [address] [address] Gustavo Garcia MD 703 [facility] 2, [address] [place] [address] 05/28/2025 9:00 AM EDT Appointment [address] [place] [address] Kirby Betancourt MD [address] [place] [address] 05/28/2025 12:00 PM EDT Hospital Encounter [address] [place] [address] Maxwell Stafford MD [address] [place] [address] Persistent atrial fibrillation (Multi) 05/28/2025 12:00 PM EDT - 05/28/2025 4:00 PM EDT Surgery [address] [place] [address] Maxwell Stafford MD [address] [place] [address] Ablation A-Fib [[id number] (CPT )] 05/29/2025 2:15 PM EDT Office Visit [facility] Medical Office Building [address] [place] [address] Maxwell Stafford MD [address] [place] [address] documented as of this encounter Visit Diagnoses Not on filedocumented in this encounter Additional Health Concerns Assessment Noted Time A fall risk assessment has been complete d for the patient 05/31/2023 3:24 PM EDT documented as of this encounter Care Teams Airport Operations Duty Manager Relationship Specialty Start Date End Date Chester [place] [address] PCP - General Internal Medicine 08/09/23 Gustavo Garcia MD [address] [place] [address] 250 [place] [address] Consulting Physician Cardiology 09/10/23 Maxwell Stafford MD [address] [place] [address] 130 [place] [address] Consulting Physician Cardiology 02/13/24 Sasha Dobbins, catering attendantModel Maker Plastic 03/28/24 04/28/24 documented as of this encounter
--- OUTSIDE RECORDS SUMMARY | 2025-05-25 19:59 | XMS_ITS | Clinical Summary ---
Author Organization [facility] Address [address] [facility] [place] [address] Care Team Providers Care Senior Enterprise Architect Name Role Phone Sam Mcdaniels MD Unavailable Michelet Painting MD Unavailable Source Comments The following information is NOT included in Care Everywhere downloads:Psychiatric notes, ECG results, Cardiac Rehab notes, Pulmonary Function notes, data from SmartForms (includes but not limited toPregnancy data,audiograms, eye exams, pre-surgical evaluation notes, well-child exam data).[facility] Allergies Active Allergy Reactions Criticality Noted Date [...] Influenza, Injectable, Triva lent, Adjuvanted, Preservative Free (QCD=090) 06/12/2018 Influenza, injectable, adjuv anted, quadrivalent, preservative free (CCK=717) 05/26/2022 Influenza, injectable, high dose seasonal, trivalent, preservative free (ZEX=393) 05/20/2019 Tdap (SQZ=597) 07/11/2021 Social History Tobacco Use Types Packs/Day [...] Discontinued Insurance [employer] Care Teams Senior Enterprise Architect Relationship Specialty Start Date End Date Sam Mcdainels MD [address] [place] [address] [place] [address] Physician Gastroenterology 07/26/24 Michelet Painting MD [address] [place], [place] [id number] Physician General Surgery 01/24/25
--- OUTSIDE RECORDS SUMMARY | 2025-05-25 19:59 | XMS_ITS | Encounter Summary ---
Author Organization [facility] Address [address] [place] [address] Phone Care Team Providers Care Top Installer Name Role Phone TysonChester Primary Care Provider [phone] Gustavo Garcia MD Unavailable [phone] Maxwell Stafford MD Unavailable [phone] Sasha Dobbins RN Unavailable Unavailable Encounter Details Date Type Department Care Team (Late st Contact Info) Description 01/19/2024 Scanned Document [facility] [address] [place] [phone] Scanning, Generic Provider Social History Tobacco Use [...] 01/22/2024 12:46 PM EDT Bend er, Millie, MOLDING MANAGER * Communicable Disease Screening Question Answer Date of Assessment Author Do you have any of the following new or worsening symptoms? None of these 01/22/2024 11:41 AM EDT Diane Fung documented as of this encounter Plan of Treatment Upcoming Encounters Date Type Department Care Team (Latest Contact Info) Description 05/26/2025 2:40 PM EDT Office Visit [address] 250 [place] [address] Gustavo Garcia MD [address] [place] [address] 2, [address] [place] [address] 05/28/2025 9:00 AM EDT Appointment [address] [place] [address] Kirby Betancourt MD [address] [place] [address] 05/28/2025 12:00 PM EDT Hospital Encounter [address] [place] [address] Maxwell Stafford MD [address] [place] [address] Persistent atrial fibrillation (Multi) 05/28/2025 12:00 PM EDT - 05/28/2025 4:00 PM EDT Surgery [address] [address] Maxwell Stafford MD [address] [place] [address] Ablation A-Fib [27227 (CPT )] 05/29/2025 2:15 PM EDT Office Visit [facility] Medical Office [address] [address] Maxwell Stafford MD [address] [place] [address] documented as of this encounter Procedures Procedure [...] documented as of this encounter Care Teams Top Installer Relationship Specialty Start Date End Date Chester Mehta DO [address] [place] [address] PCP - General Internal Medicine 08/09/23 Gustavo Garcia MD 703 [facility] 2[facility] 250 [place] [address] Consulting Physician Cardiology 09/10/23 Maxwell Stafford MD [address] [place] [address] 130 [place] [address] Consulting Physician Cardiology 02/13/24 Sasha Dobbins, exhibition organiserSlackman 03/28/24 04/28/24 documented as of this encounter
--- OUTSIDE RECORDS SUMMARY | 2025-05-25 19:59 | XMS_ITS | Encounter Summary ---
Author Organization [facility] Address [address] [place] [address] Phone Care Team Providers Care Trailer Steerer Name Role Phone Chester Mehta DO Primary Care Provider [phone] Chester Mehta DO Primary Care Provider [phone] Gustavo Garcia MD Unavailable [phone] Maxwell Stafford MD Unavailable [phone] Sasha Dobbins RN Unavailable Unavailable Encounter Details Date Type Department Care Team (Late st Contact Info) Description 07/28/2020 Orders Only [facility] [address] [place] [address] Conversion, Onbase Social History Tobacco Use Types [...] Description 05/26/2025 2:40 PM EDT Office Visit [facility] [address] [facility] [address] [place] [address] Gustavo Garcia MD 703 [facility] 2, [address] [place] [address] 05/28/2025 9:00 AM EDT Appointment [place] [address] [place] [address] Kirby Betancourt MD [address] [place] [address] 05/28/2025 12:00 PM EDT Hospital Encounter [facility] [address] [place] [address] Maxwell Stafford MD [address] [place] [address] Persistent atrial fibrillation (Multi) 05/28/2025 12:00 PM EDT - 05/28/2025 4:[address] [facility] [address] [place] [address] Maxwell Stafford MD [address] [place] [address] Ablation A-Fib [40400 (CPT )] 05/29/2025 2:15 PM EDT Office Visit [facility] Medical Office Building [address] [place] [address] Maxwell Stafford MD [address] [place] [address] Scheduled Orders Name Type Priority Associated Diagnoses Orde r Schedule OUTSIDE LAB SCAN Lab Ordered: 07/28/2020 documented as of this encounter Visit Diagnoses Not on filedocumented in this encounter Care Teams Trailer Steerer Relationship Specialty Start Date End Date Chester Mehta DO PCP - General 08/20/99 08/08/23 Chester [place] [address] PCP - General Internal Medicine 08/09/23 Gustavo Garcia MD [address] [place] [address] 2, [address] [place] [address] Consulting Physician Cardiology 09/10/23 Maxwell Stafford MD [address] [address] Consulting Physician Cardiology 02/13/24 Sasha Dobbins, telephone mechanicKeno Writer 03/28/24 04/28/24 documented as of this encounter
--- OUTSIDE RECORDS SUMMARY | 2025-05-25 19:59 | XMS_ITS | Encounter Summary ---
Author Organization [facility] Address [address] [place] [address] Phone Care Team Providers Care Eclectic Doctor Name Role Phone Chester Mehta DO Primary Care Provider [phone] Chester Mehta DO Primary Care Provider [phone] Gustavo Garcia MD Unavailable [phone] Maxwell Stafford MD Unavailable [phone] Sasha Dobbins RN Unavailable Unavailable Encounter Details Date Type Department Care Team (Late st Contact Info) Description 06/23/2021 Orders Only [facility] [address] [place] [address] Conversion, Onbase Social History Tobacco Use Types [...] Description 05/26/2025 2:40 PM EDT Office Visit [facility] 703 [facility] [address] [place] [address] Gustavo Garcia MD 703 [facility] 2, [address] [place] [address] 05/28/2025 9:00 AM EDT Appointment [place] [address] [place] [address] Kirby Betancourt MD [address] [place] [address] 05/28/2025 12:00 PM EDT Hospital Encounter [facility] 630 [place] [address] Maxwell Stafford MD [address] [place] [address] Persistent atrial fibrillation (Multi) 05/28/2025 12:00 PM EDT - 05/28/2025 4:00 PM EDT Surgery [address] [place] [address] Maxwell Stafford MD [address] [place] [address] Ablation A-Fib [96196 (CPT )] 05/29/2025 2:15 PM EDT Office Visit [facility] Medical Office Building [address] [place] [address] Maxwell Stafford MD [address] [place] [address] Scheduled Orders Name Type Priority Associated Diagnoses Orde r Schedule OUTSIDE LAB SCAN Lab Ordered: 06/23/2021 documented as of this encounter Visit Diagnoses Not on filedocumented in this encounter Care Teams Eclectic Doctor Relationship Specialty Start Date End Date Chester Mehta DO PCP - General 08/20/99 08/08/23 Chester [place] [address] PCP - General Internal Medicine 08/09/23 Gustavo Garcia MD [address] [place] [address] 2, [address] [place] [address] Consulting Physician Cardiology 09/10/23 Maxwell Stafford MD [address] [place] [address] 130 [place] [address] Consulting Physician Cardiology 02/13/24 Sasha Dobbins, chief of vital statisticsDance Entertainer 03/28/24 04/28/24 documented as of this encounter
--- OUTSIDE RECORDS SUMMARY | 2025-05-25 19:59 | XMS_ITS | Encounter Summary ---
Author Organization [facility] Address [address] [place] [address] Phone Care Team Providers Care Computer Repair Engineer Name Role Phone Chester Mehta DO Primary Care Provider [phone] Chester Mehta DO Primary Care Provider [phone] Gustavo Garcia MD Unavailable [phone] Maxwell Stafford MD Unavailable [phone] Sasha Dobbins RN Unavailable Unavailable Encounter Details Date Type Department Care Team (Late st Contact Info) Description 08/01/2021 Orders Only [facility] [address] [place] [address] Conversion, Onbase Social History Tobacco Use Types [...] Description 05/26/2025 2:40 PM EDT Office Visit [facility] 703 [facility] [address] [place] [address] Gustavo Garcia MD 703 [facility] 2, [address] [place] [address] 05/28/2025 9:00 AM EDT Appointment [place] [address] [place] [address] Kirby Betancourt MD [address] [place] [address] 05/28/2025 12:00 PM EDT Hospital Encounter [facility] [address] [facility] [place] [address] Maxwell Stafford MD [address] [place] [address] Persistent atrial fibrillation (Multi) 05/28/2025 12:00 PM EDT - 05/28/2025 4:00 PM EDT Surgery [address] [place] [address] Maxwell Stafford MD [address] [place] [address] Ablation A-Fib [58063 (CPT )] 05/29/2025 2:15 PM EDT Office Visit [facility] Medical Office Building [address] [place] [address] Maxwell Stafford MD [address] [place] [address] Scheduled Orders Name Type Priority Associated Diagnoses Orde r Schedule OUTSIDE LAB SCAN Lab Ordered: 08/01/2021 OUTSIDE LAB SCAN Lab Ordered: 08/01/2021 documented as of this encounter Visit Diagnoses Not on filedocumented in this encounter Care Teams Computer Repair Engineer Relationship Specialty Start Date End Date Chester Mehta DO PCP - General 08/20/99 08/08/23 Chester Mehta DO [facility] [place] [address] PCP - General Internal Medicine 08/09/23 Gustavo Garcia MD [address] [place] [address] 2, [address] [place] [address] Consulting Physician Cardiology 09/10/23 Maxwell Stafford MD 7 [facility] 130 [place] [address] Consulting Physician Cardiology 02/13/24 Sasha Dobbins, jet pilotHand Knitter 03/28/24 04/28/24 documented as of this encounter
--- OUTSIDE RECORDS SUMMARY | 2025-05-25 20:00 | XMS_ITS | CCD ---
Author Organization [facility] CliniSymd Care Team Providers Care Director Of Operations Name Role Phone JAZMIN العلي Primary Care Unavailable JELANI SORIA Attending Unavailable VIDAL SORIAF Admitting Unavailable SELF, REFERRED Referring Unavailable ME Procedure Practitioner Unavailab SANJUANA Maier AM Surgeon Unavailable TANNER HERRERA Surgeon Unavailable ME Procedure Practitioner Unavailab JELANI Eid Surgeon Unavailable ME Procedure Practitioner Unavailab Jazmin Buckley E Unavailable Unavailable Unavailable DO Jazmin العلي Primary Care Provider MD Debbie Mac Attending Provider John Mims Unavailable DO Jazmin العلي Primary Care Provider MD John Mims Attending Provider [phone] MD Debbie Mac Attending Provider MD John Mims Referring Provider DO Jazmin العلي Primary Care Provider MD Debbie Mac Attending Provider DO Jazmin العلي Primary Care Provider MD Debbie Mac Attending Provider DO Luis Lennon Emergency Provider [phone] DO Jay Ceja Admit Provider DO Jay Ceja Attending Provider [phone] MD Anival Easton Attending Provider DO Jazmin العلي Primary Care Provider MD Debbie Mac Attending Provider VINCENT Rolon Emergency Provider [phone] DO Jay Ceja Attending Provider [phone] ROSA Bennett Other Provider Unavailable DO Javed Dee Other Provider MD Jimena Smith Other Provider MD Christopher Richardson Other Provider MD Debbie Mac Referring Provider MD Kenny Porter Other Provider VIRGINIA Brooke Other Provider MD Bety Haile Other Provider MD [facility] Other Provider MD Isra Pedro Other Provider [facility] Cristiana Rosen Other Provider MD Yessy Ackerman Other Provider DO Katie Dukes Attending Provider Jazmin العلي Unavailable DO Jazmin العلي Primary Care Provider DO Luis Lennon Emergency Provider Unavailab DO Jay Milligan Admit Provider [phone] MD Anival Easton Attending Provider VINCENT Rolon Emergency Provider ROSA Bennett Other Provider Unavailable DO Javed Dee Other Provider MD Jimena Smith Other Provider MD Christopher Richardson Other Provider MD Debbie Mac Referring Provider MD Kenny Porter Other Provider VIRGINIA Brooke Other Provider MD Bety Haile Other Provider MD Anoop Zhang Other Provider MD Isra Pedro Other Provider [facility] Cristiana Rosen Other Provider MD Yessy Ackerman Other Provider [phone] DO Katie Dukes Attending Provider Tyson, [...] Debbie Mac Attending Provider Tyson Jazmin MORENO Dalton Primary Care Provider Negin Garcia Unavailable Tyson Jazmin Dalton Primary Care Provider Tyson DO Briggs Primary [...] Provider MD Isra Pedro Other Provider [facility] Cristiana Rosen Other Provider Jazmin العلي DO [...] Provider Vanessa KAUR, Vic Pritchard Emergency Provider [phone] Jossy MUIR, Shilpa Admit Provider Shilpa Fenton [...] Other Provider Isra Pedro MD Other Provider [facility], Cristiana Rosen Other Provider Wilda MUIR, Andrius [...] Referring Unavailable KATIE YUNG Attending Unavailable KATIE YUNG Admitting Unavailable Jazmin العلي DO Primary Care Provider [phone] Maggie Rod MD Emergency Provider [phone] Ángel Minaya MD Admit Provider Ángel Minaya MD Attending Provider [phone] Fahad Kim DO Attending Provider Tyson DO, Jazmin E Primary Care Provider MAXWELL MEDRANO N Attending Unavailable MEDRANO, MAXWELL N Referring Unavailable BALL, JAZMIN E Primary Care Unavailable CRISTIANA CHAPA Attending Unavailable MEDRANO, MAXWELL N Referring Unavailable [...] Unavailable Ball DO, Jazmin Primary Care Provider Juanito Barragan DO Attending Provider Maxwell Basurto MD Attending Provider Tyson, Jazmin Primary Care Unavailable Fahad Kim Attending Unavailable Asabrenda, Imad Consulting Unavailable Aroldo Peña Admitting Unavailable Mischler, Stephanie Consulting Unavailable Javed Dee Consulting Unavailable Smith, Jimena Consulting Unavailable Christopher Richardson Consulting Unavail able Debbie Mac Consulting Unavailable Kenny Porter Consulting Unavailab Dee Jacobs Consulting Unavailable Bety Haile Consulting Unavailable Anoop Zhang Consulting Unavailab Isra Lutz Consulting Unavailable Cristiana Chapa Consulting Unavailable Maxwell Basurto Attending Unavailable Maxwell Basurto Admitting Unavailable Tyson, Jazmin Primary Care Unavailable Giedraitis, Andrius Attending Unavailable Giedraitis, Andrius Admitting Unavailable Ball, Jazmin Admitting Unavailable Ball, Jazmin Primary Care Unavailable Ball Jazmin Attending Unavailable Ball, Jazmin Primary Care Unavailable Gracia Craig Admitting Unavailable Gracia Craig Attending Unavailable Yarelichler, Stephanie Consulting Unavailable Ball, Jazmin Primary Care Unavailable Fahad Kim Attending Unavailable Ángel Minaya Admitting Unavailable Mischler, Stephanie Consulting Unavailable Javed Dee Consulting Unavailable Smith, Hess Consulting Unavailable Christopher Richardson Consulting Unavail able Debbie Mac Consulting Unavailable Kenny Porter Consulting Unavailab Dee Jacobs Consulting Unavailable Haile, Bety Consulting Unavailable Vicente, Anoop Najeeb Consulting Unavailab le Willis, Tarek Consulting Unavailable Barby, Cristiana L Consulting Unavailable Stephanie Bennett Consulting Unavailable Smith, Hess Referring Unavailable Shilpa Fenton Attending Unavailable Jazmin العلي Primary Care Unavailable Semaskiene, Shilpa Admitting Unavailable Javed Dee Consulting Unavailable Smith, Hess Consulting Unavailable Christopher Richardson Consulting Unavail able Debbie Mac Consulting Unavailable Kenny Porter Consulting Unavailab Dee Jacobs Consulting Unavailable Haile, Bety Consulting Unavailable Vicente, Anoop Najeeb Consulting Unavailab le Willis, Tarek Consulting Unavailable Barby, Cristiana L Consulting Unavailable JOSEPH SEPULVEDA Attending Unavailable JOSEPH SEPULVEDA Attending Unavailable JOSEPH SEPULVEDA Attending Unavailable Sasha Rios CMA Attending Provider UnavailJazmin Stevensno DO Attending Provider [phone] MEDRANO, MAXWELL N Referring Unavailable BALL, JAZMIN [...] Unavailable BALL, JAZMIN E Primary Care Unavailable Allergies Allergy Classification Reported Allergen(s) Allergy Type Date of Onset Reaction(s) Facility (1 source) apixaban Drug Allergy 07-26-[address] [facility] Repository (20 sources) Sulfonamides (Antibiotic); Translations: [SULFA (SULFONAMIDE ANTIBIOTICS)] Drug allergy (disorder) 07-29-20 [address] [facility] Repository (20 sources) Sulfonamides (Antibiotic); Translations: [Sulfa Drugs] All[facility] to drug (finding) [facility] Work Phone: (20 sources) fentaNYL; Translations: [fentanyl] Drug Allergy 08-22-19 22 Other [facility] (20 sources) Sulfonamides (Antibiotic) Propensity to adverse reactions Unknown [facility] Other (1 source) fentaNYL Drug Allergy 08-06-20 20 [facility] Repository (1 source) patient allergy list reviewed by nurse or physicia Propensity to adverse reactions 04-15-20 19 Comment:Done [facility] Other (20 sources) Substance with sulfonamide structure and antibacterial mechanism of action (substance) Drug allergy 02-20-20 23 Unknown [facility] Other Medications Current Medications Medication Drug Class(es) Dates Sig (Normalized) Sig (Original) acetaminophen 325 mg oral tablet (20 sources) Start: 12-08-2024 End: 12-08-2024 650 mg, Oral, PACU ONCE PRN, Starting on Sun12/08/24 at 1002, Until Sun12/08/24 at 1601, Mild Pain (pain score 1,2,3), PACU Now Start: 04-01-2024 take 1 capsule by mo [facility] every six hours as needed for pain [...] sources) Opioid Agonist Start: 11-24-2023 HYDROcodone-ac etaminophen ([place]) 10-325 MG tablet 1 tablet 11/24/2023 Active [...] 2021 12:29pm Start: 04-11-2021 End: 07-03-2021 take [id number] tablet by mouth once daily Amiodarone 200 mg tablet Discontinued 200 MG PO Daily April 11, 2021 12:00pm July 03, 2021 3:41pm start 04/15 Start: 03-18-2021 End: 04-11-2021 Amiodarone 200 mg Tablet Discontinued 200 MG PO Twice daily March [...] (4 sources) Lincosamide Antibacterial Start: 025 End: 025 take 1 capsule by mouth in the [...] capsule (20 sources) Calcium Channel Leland Start: 024 DilTIAZem (CARDIZEM CD) 120 MG ER capsule [...] 14, 2020 10:44am take 1 tablet by [facility] once daily dilTIAZem HCl - 120 MG [...] 05, 2021 12:29pm take 1 capsule by [facility] once daily Acidophilus Oral Capsule [...] hr Active 50 MG PO Daily 90 April 24, 2025 12:41pm Complies with drug therapy Start: 07-23-2024 End: 09-10-2024 take 1 tablet by mouth twice daily Metoprolol Tartrate 25 mg Tablet Discontinued 25 MG PO Twice daily 60 July 23, 2024 1:00am September 10, 2024 [...] TAB PO Q6H as needed for pain 18 03March 05, 2023 November 24, 2023 10:07am Start: [...] PO Twice daily June 25, 2020 1:00am [place] 27th, 2021 10:44am ascorbic acid-vitamin E-biotin (Hair, Skin, Nails [...] And Nails (Biotin)) 10,000 mcg Tablet,Chewable Discontinued 76194 MCG PO Every morning February 25, 2023 11:00pm November 24, 2023 9:06am Start: 02-26-2023 End: 11-24-2023 take 1 tablet by mouth once daily in the morning Biotin (Hair, Skin And Nails (Biotin)) 10,000 mcg Tablet,Chewable Discontinued 96016 MCG PO Every morning February 26, 2023 12:00am November 24, 2023 10:06am Start: 02-26-2023 take 1 tablet by [facility] once daily in the morning Biotin (Hair, Skin And Nails (Biotin)) 10,000 mcg Tablet,Chewable Active 33163 MCG PO Every morning February 25, 2023 11:00pm Start: 02-26-2023 take 1 tablet by nghia th once daily in the morning Biotin (Hair, Skin And Nails (Biotin)) 10,000 mcg Tablet,Chewable Active 46210 MCG PO Every morning February 26, 2023 [...] daily. Active take 2 tablets by mo [facility] every twenty-four hours Vitamin D3 10 MCG [...] 10:54pm Start: 03-17-2024 [facility] digoxin (LANOXIN) 125 MCG tablet [...] 10 mg tablet Discontinued 0 .ROUTE .COMPLEX December 03, 2023 [...] DO Start : 01-May-2022 Complete Vit A-Vit S-Durwpc-Bzmd-Copper (Rndt-Sdrd-Hflk(Vit A,C-Biotin)) 2,500 unit-100 mg-2,500 mcg capsule (20 sources) Start: 01-18-2024 End: 05-08-2024 take 1 capsule by mouth once daily Vit A-Vit A-Uybokr-Rhca-Copper (Aidw-Tobj-Xqrh(Vit A,C-Biotin)) 2,500 unit-100 mg-2,500 mcg capsule Discontinued 1 CAP PO Daily January 17, 2024 11:00pm May 08, 2024 11:06am Start: 01-18-2024 End: 05-08-2024 take 1 capsule by mouth once daily Vit A-Vit M-Xamhnj-Zrdr-Copper (Lruk-Bget-Npkr(Vit A,C-Biotin)) 2,500 unit-100 mg-2,500 mcg capsule Discontinued 1 CAP PO Daily January 18, 2024 12:00am May 08, 2024 12:06pm Start: 01-18-2024 take 1 capsule by mo [facility] once daily Vit A-Vit Q-Bylutp-Ehcp-Copper (Vptv-Fyuz-Zang(Vit A,C-Biotin)) 2,500 unit-100 mg-2,500 mcg capsule Active [...] per request of Phys. EHR Cmte Acute myocardial infarction (13 sources) Acute non-ST [...] [Coronary atherosclerosis of unspecified type of vessel, osage or graft] Onset: 3 04-28-2023 Chronic Comment [...] List clean-u p per request of Phys. 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; Translations: [Long-term (current) use of anticoagulants] Onset: 04-28-2023 09-21-2022 Episodic Other aftercare (11 sources) Other retirement (current) drug therapy; Translations: [Long-term (current) use of other medications] Onset: 04-28-2023 Episodic Other aftercare (20 sources) Taking high risk medication; Translations: [Other retirement (current) drug therapy] Onset: 04-28-2023 04-28-2023 Episodic [...] 34 mL/min/{1.73_m2} Low >=60 mL/min/1.7 3m 2 [facility] Laboratory - Chemistry and C hemistry - challengeOrdered By: Maxwell Basurto on 05-05-2025 Calcium [Mass/Vol] 9.0 mg/dL 8.5-10.1 [facility] Chloride [Moles/Vol] 104 mmol/L 98-107 [facility] CO2 [Moles/Vol] 27.2 mmol/L 21.0-32.0 [facility] Creatinine [Mass/Vol] 1.48 mg/dL High 0.55-1.02 [facility] GFR/1.73 sq M.predicted MDRD (S/P/Bld) [Vol rate/Area] 41 mL/min/{1.73_m2} Low >=60 mL/min/1.7 3m 2 [facility] Glucose [Mass/Vol] 107 mg/dL High 74-106 [facility] Natriuretic peptide B (Bld) [Mass/Vol] 1324.0 pg/mL <=1800.0 [facility] Potassium [Moles/Vol] 4.4 mmol/L 3.5-5.1 [facility] Sodium [Moles/Vol] 141 mmol/L 136-145 [facility] Urea nitrogen [Mass/Vol] 31.0 mg/dL High 7.0-18.0 [facility] Urea nitrogen/Creatinine [Mass ratio] 20.9 mg/mg [facility] Serum or plasma anion gap de terminationOrdered By: Maxwell Basurto on 05-05-2025 Anion gap [Moles/Vol] 14.2 mmol/L [facility] Erythrocyte distribution wid th Auto (RBC) [Ratio]Ordered By: Maxwell Basurto on 05-04-2025 Erythrocyte distribution width (RBC) [Ratio] 13.5 % 11.0-15.0 [facility] Globulin Calc (S) [Mass/Vol] Ordered By: Jazmin العلي on 05-04-2025 Globulin (S) [Mass/Vol] 3.7 g/dL [facility] Glomerular filtration rate ( GFR) estimation in non- AmericanOrdered By: Jazmin العلي on 05-04-2025 GFR/1.73 sq M.predicted among non-blacks MDRD (S/P/Bld) [Vol rate/Area] 46 mL/min/{1.73_m2} Low >=60 mL/min/1.7 3m 2 [facility] Hematocrit Auto (Bld) [Volum e fraction]Ordered By: Maxwell Basurto on 05-04-2025 Hematocrit (Bld) [Volume fraction] 39.5 % 36.0-48.0 [facility] Hemoglobin [Mass/volume] in BloodOrdered By: Maxwell Basurto on 05-04-2025 Hemoglobin (Bld) [Mass/Vol] 12.8 g/dL 12.0-16.0 [facility] Laboratory - Chemistry and C hemistry - challengeOrdered By: Maxwell Basurto on 05-04-2025 Bilirubin Ql (U) Negative NEGATIVE [facility] Glucose (U) [Mass/Vol] Negative NEGATIVE [facility] Ketones Ql (U) Negative NEGATIVE [facility] pH (U) 5.5 [pH] 5.0-9.0 [facility] Specific gravity (U) [Rel density] 1.015 1.005-1.02 5 [facility] Urobilinogen Qn (U) 0.2 {Sherrell'U}/dL 0.2-1.0 [facility] Laboratory - Chemistry and C hemistry - challengeOrdered By: Jazmin العلي on 05-04-2025 Albumin [Mass/Vol] 3.7 g/dL 3.4-5.0 [facility] ALP [Catalytic activity/Vol] 92 U/L 46-116 [facility] ALT [Catalytic activity/Vol] 23 U/L 14-59 [facility] AST [Catalytic activity/Vol] 27 U/L 15-37 [facility] Bilirubin [Mass/Vol] 1.5 mg/dL High 0.2-1.0 [facility] Calcium [Mass/Vol] 9.2 mg/dL 8.5-10.1 [facility] Chloride [Moles/Vol] 105 mmol/L 98-107 [facility] CO2 [Moles/Vol] 23.2 mmol/L 21.0-32.0 [facility] Creatinine [Mass/Vol] 1.14 mg/dL High 0.55-1.02 [facility] GFR/1.73 sq M.predicted MDRD (S/P/Bld) [Vol rate/Area] 55 mL/min/{1.73_m2} Low >=60 mL/min/1.7 3m 2 [facility] Glucose [Mass/Vol] 97 mg/dL 74-106 [facility] Potassium [Moles/Vol] 3.5 mmol/L 3.5-5.1 [facility] Protein [Mass/Vol] 7.4 g/dL 6.4-8.2 [facility] Sodium [Moles/Vol] 142 mmol/L 136-145 [facility] Urea nitrogen [Mass/Vol] 23.0 mg/dL High 7.0-18.0 [facility] Urea nitrogen/Creatinine [Mass ratio] 20.2 mg/mg [facility] Laboratory - Specimen inform ationOrdered By: Maxwell Basurto on 05-04-2025 Appearance (U) CLEAR CLEAR [facility] Color (U) LT. YELLOW YELLOW [facility] Laboratory - UrinalysisOrder ed By: Maxwell Basurto on 05-04-2025 Leukocyte esterase Test strip Ql (U) MODERATE Abnormal NEGATIVE [facility] Mucus Ql (Urine sed) TRACE Abnormal NONE SEEN [facility] Nitrite Ql (U) Negative NEGATIVE [facility] Protein Ql (U) Negative NEG/TRACE [facility] Leukocytes [#/volume] correc anne marie for nucleated erythrocytes in Blood by Automated counOrdered By: Maxwell Basurto on 05-04-2025 WBC corrected for nucl RBC Auto (Bld) [#/Vol] 9.8 10 3/uL 4.0-11.0 [facility] MCH Auto (RBC) [Entitic mass ]Ordered By: Maxwell Basurto on 05-04-2025 MCH (RBC) [Entitic mass] 29.3 pg 26.7-34.0 [facility] MCHC Auto (RBC) [Mass/Vol]Or dered By: Maxwell Basurto on 05-04-2025 MCHC (RBC) [Mass/Vol] 32.4 g/dL 29.9-35.2 [facility] MCV Auto (RBC) [Entitic vol] Ordered By: Maxwell Basurto on 05-04-2025 MCV (RBC) [Entitic vol] 90.4 fL 81.0-99.0 [facility] No Panel InformationOrdered By: Maxwell Basurto on 05-04-2025 Urine Bacteria SMALL #/HPF Abnormal NONE SEEN [facility] Urine Culture Reflexed YES-[facility] Urine Occult Blood Negative NEGATIVE [facility] Urine Other Casts NONE SEEN #/LPF NONE SEEN [facility] Urine Other Crystals None Seen #/HPF None Seen [facility] Urine RBC 0-2 #/HPF 0-2 [facility] Urine Squamous Epithelial Cells FEW #/LPF Abnormal NONE/RARE [facility] Urine WBC 5-10 #/HPF Abnormal NONE SEEN [facility] Platelet mean volume Auto (B ld) [Entitic vol]Ordered By: Maxwell Basurto on 05-04-2025 Platelet mean volume (Bld) [Entitic vol] 10.2 fL 9.5-13.5 [facility] Platelets Auto (Bld) [#/Vol] Ordered By: Maxwell Basurto on 05-04-2025 Platelets (Bld) [#/Vol] 209 10 3/uL 150-450 [facility] RBC Auto (Bld) [#/Vol]Ordere d By: Maxwell Basurto on 05-04-2025 RBC (Bld) [#/Vol] 4.37 10 6/uL 4.20-5.40 [facility] Serum or plasma albumin/glob ulin mass ratioOrdered By: Jazmin العلي on 05-04-2025 Albumin/Globulin [Mass ratio] 1.0 {ratio} [facility] Serum or plasma anion gap de terminationOrdered By: Jazmin العلي on 05-04-2025 Anion gap [Moles/Vol] 17.3 mmol/L [facility] Urine Cultureon 05-04-2025 Bacteria identified Cx Nom (U) ORGANISM: Escherichia coli (O:ESCCOL) Sublimity Count >100,000 Aerobic CASSANDRA Charge (NMIC56) SUSCEPTIBILITY [...] RESISTANT TO ALL B-LACTAM DRUGS. PERFORMED BY: [facility] [address] [place] [address] PATHOLOGIST SUPERVISOR [employer] REENA JIN M.D. Normal [facility] Comment on above: Performed By: #### C UU ####[facility] [id number] [facility] Urine cultureOrdered By: J Carlos Basurto on 05-04-2025 Bacteria identified Cx Nom (U) Escherichia coli Abnormal [facility] Basophils Auto (Bld) [#/Vol] Ordered By: Juanito Barragan on 05-03-2025 Basophils (Bld) [#/Vol] 0.0 10 3/uL 0.0-0.1 [facility] Basophils/100 WBC Auto (Bld) Ordered By: Juanito Barragan on 05-03-2025 Basophils/100 WBC (Bld) 0.2 % 0.2-2.0 [facility] Eosinophils/100 WBC Auto (Bl d)Ordered By: Juanito Barragan on 05-03-2025 Eosinophils/100 WBC (Bld) 0.6 % Low 0.9-7.0 [facility] Erythrocyte distribution wid th Auto (RBC) [Ratio]Ordered By: Juanito Barragan on 05-03-2025 Erythrocyte distribution width (RBC) [Ratio] 13.7 % 11.0-15.0 [facility] Glomerular filtration rate ( GFR) estimation in non- AmericanOrdered By: Juanito Barragan on 05-03-2025 GFR/1.73 sq M.predicted among non-blacks MDRD (S/P/Bld) [Vol rate/Area] 41 mL/min/{1.73_m2} Low >=60 mL/min/1.7 3m 2 [facility] Hematocrit Auto (Bld) [Volum e fraction]Ordered By: Juanito Barragan on 05-03-2025 Hematocrit (Bld) [Volume fraction] 39.2 % 36.0-48.0 [facility] Hemoglobin [Mass/volume] in BloodOrdered By: Juanito Barragan on 05-03-2025 Hemoglobin (Bld) [Mass/Vol] 13.1 g/dL 12.0-16.0 [facility] Laboratory - Chemistry and C hemistry - challengeOrdered By: Juanito Barragan on 05-03-2025 Calcium [Mass/Vol] 9.0 mg/dL 8.5-10.1 [facility] Chloride [Moles/Vol] 105 mmol/L 98-107 [facility] CO2 [Moles/Vol] 21.7 mmol/L 21.0-32.0 [facility] Creatinine [Mass/Vol] 1.26 mg/dL High 0.55-1.02 [facility] GFR/1.73 sq M.predicted MDRD (S/P/Bld) [Vol rate/Area] 49 mL/min/{1.73_m2} Low >=60 mL/min/1.7 3m 2 [facility] Glucose [Mass/Vol] 129 mg/dL High 74-106 [facility] Natriuretic peptide B (Bld) [Mass/Vol] 5655.0 pg/mL Critically high <=1800.0 [facility] Comment on above: RESULTS CALLED TO DR Melita BARRAGAN Potassium [Moles/Vol] 4.4 mmol/L 3.5-5.1 [facility] Sodium [Moles/Vol] 140 mmol/L 136-145 [facility] Urea nitrogen [Mass/Vol] 24.0 mg/dL High 7.0-18.0 [facility] Urea nitrogen/Creatinine [Mass ratio] 19.0 mg/mg [facility] Laboratory - Hematology and Cell countsOrdered By: Juanito Barragan on 05-03-2025 Immature granulocytes/100 WBC (Bld) 0.3 % 0.0-0.5 [facility] Laboratory - Microbiology an d Antimicrobial susceptibilityOrdered By: Juanito Barragan on 05-03-2025 SARS-CoV-2 (COVID-19) RNA GUILLERMO+probe Ql (Unsp spec) Negative NEGATIVE [facility] Comment on above: This test has not [...] (Bld) [#/Vol] 12.9 10 3/uL High 4.0-11.0 [facility] Lymphocytes Auto (Bld) [#/Vo l]Ordered By: Juanito Barragan on 05-03-2025 Lymphocytes (Bld) [#/Vol] 1.1 10 3/uL Low 1.2-3.8 [facility] Lymphocytes/100 WBC Auto (Bl d)Ordered By: Juanito Barragan on 05-03-2025 Lymphocytes/100 WBC (Bld) 8.2 % Low 20.5-60.0 [facility] MCH Auto (RBC) [Entitic mass ]Ordered By: Juanito Barragan on 05-03-2025 MCH (RBC) [Entitic mass] 29.8 pg 26.7-34.0 [facility] MCHC Auto (RBC) [Mass/Vol]Or dered By: Juanito Barragan on 05-03-2025 MCHC (RBC) [Mass/Vol] 33.4 g/dL 29.9-35.2 [facility] MCV Auto (RBC) [Entitic vol] Ordered By: Juanito Barragan on 05-03-2025 MCV (RBC) [Entitic vol] 89.3 fL 81.0-99.0 [facility] Monocytes Auto (Bld) [#/Vol] Ordered By: Juanito Barragan on 05-03-2025 Monocytes (Bld) [#/Vol] 1.0 10 3/uL High 0.3-0.8 [facility] Monocytes/100 WBC Auto (Bld) Ordered By: Juanito Barragan on 05-03-2025 Monocytes/100 WBC (Bld) 7.9 % 1.7-12.0 [facility] Neutrophils Auto (Bld) [#/Vo l]Ordered By: Juanito Barragan on 05-03-2025 Neutrophils (Bld) [#/Vol] 10.6 10 3/uL High 1.4-6.5 [facility] Neutrophils/100 WBC Auto (Bl d)Ordered By: Juanito Barragan on 05-03-2025 Neutrophils/100 WBC (Bld) 82.8 % High 43.0-75.0 [facility] No Panel InformationOrdered By: Juanito Barragan on 05-03-2025 Troponin I High Sensitivity 67.2 pg/mL Critically high 4.0-51.3 [facility] Comment on above: RESULTS CALLED TO dr Melita Plascencia-OFF POINTS HAVE BEEN ESTABLISHED BASED ON THE [...] INFORMATION. Bedside Influenza Type A Antigen Negative [facility] Comment on above: Negative for Flu A p rotein antigen. Infection due to Flu Acannot be ruled out. Flu A antigen in the sample may bebelow the detection limit of the test. Bedside Influenza Type B Antigen Negative [facility] [facility] Comment on above: Negative for Flu B p rotein antigen. Infection due to Flu Bcannot be ruled out. Flu B antigen in the sample may bebelow the detection limit of the test. Eosinophils # (Auto) 0.1 10 3/uL 0.0-0.7 [facility] Immature Granulocyte # (Auto) 0.04 10 3/uL High 0.00-0.03 [facility] Platelet mean volume Auto (B ld) [Entitic vol]Ordered By: Juanito Barragan on 05-03-2025 Platelet mean volume (Bld) [Entitic vol] 10.1 fL 9.5-13.5 [facility] Platelets Auto (Bld) [#/Vol] Ordered By: Juanito Barragan on 05-03-2025 Platelets (Bld) [#/Vol] 240 10 3/uL 150-450 [facility] RBC Auto (Bld) [#/Vol]Ordere d By: Juanito Barragan on 05-03-2025 RBC (Bld) [#/Vol] 4.39 10 6/uL 4.20-5.40 [facility] Serum or plasma anion gap de terminationOrdered By: Juanito Barragan on 05-03-2025 Anion gap [Moles/Vol] 17.7 mmol/L [facility] Creatinineon 05-01-2025 Creatinine [Mass/Vol] 1.50 mg/dL High 0.60-1.30 [facility] Comment on above: Result Comment: Hydr oxyurea can cause significant interference with creatinine measurement using the i-STAT device. An alternate method of creatinine measurement must be used in patients treated with hydroxyurea. Performed By: #### 2 160-0 #### STEPHEN DICK ([id number]) CHANELL MITCHELL CT ([employer]) 1994 [facility], [facility] [place] [address] Creatinine [Mass/Vol]on 04-20 Interpretation and review of laboratory results Abnormal [facility] POCT eGFR 35 Low - PINF [facility] Comment on above: Calculations of fide mated GFR are performed using the 2020 CKD-EPI Study Refit equation without the race variable for the IDMS-Traceable Creatinine Methods. https://jasn.asnjournals.org/content/early/ASN.40797 37126 [facility] Glomerular filtration rate 35 mL/min/1.73m*2 Low >=[address] [facility] Comment on above: Result Comment: Calc ulations of estimated GFR are performed using the 2020 CKD-EPI Study Refit ???equation without the race variable for the IDMS-Traceable Creatinine Methods. https://jasn.asnjournals.org/content/early/ASN.35839 39710 Performed By: #### 2 160-0 #### STEPHEN DICK ([id number]) CHANELL KAMARARSLECB166 CT (ELY[employer]) 1994 [facility], [facility] [place] [address] POCT CREATININE AND GFRon Creatinine [Mass/Vol] 1.50 mg/dL High 0.60 - 1.30 mg/dL [facility] Comment on above: Hydroxyurea can caus e significant interference with creatinine measurement using the i-STAT device. An alternate method of creatinine measurement must be used in patients treated with hydroxyurea. Basic metabolic 2000 panelon 04-28-2025 Anion gap [Moles/Vol] 12 mmol/L Normal 10-20 [facility] Comment on above: Performed By: #### 2 4321-2 #### ALEK KENT ([id number]) [facility] ([facility]) [address] [place] [address]108 Calcium [Mass/Vol] 9.1 mg/dL Normal 8.6-10.3 [facility] Comment on above: Performed By: #### 2 4321-2 #### ALEK KENT ([id number]) [facility] ([facility]) [address] [place] [address] 13759 Chloride [Moles/Vol] 102 mmol/L Normal 98-107 [facility] Comment on above: Performed By: #### 2 4321-2 #### ALEK KENT ([id number]) [facility] ([facility]) [address] [place] [address] 87619 CO2 [Moles/Vol] 29 mmol/L Normal 21-32 [facility] Comment on above: Performed By: #### 2 4321-2 #### ALEK KENT ([id number]) [facility] ([facility]) [address] [place] [address] Creatinine [Mass/Vol] 1.62 mg/dL High 0.50-1.05 [facility] Comment on above: Performed By: #### 2 4321-2 #### JUANIBJOHN THAI TESS ([id number]) [facility] ([facility]) [address] [place] [address] Glomerular filtration rate 32 mL/min/1.73m*2 Low >60 [facility] Comment on above: Result Comment: Calc ulations of estimated GFR are performed using the 2020 CKD-EPI Study Refit equation without the race variable for the IDMS-Traceable creatinine methods. https://jasn.asnjournals.org/content/early//ASN.42011 62043 Performed By: #### 2 4321-2 #### ALEK KENT ([id number]) [facility] ([facility]) [address] [place] [address] 05561 Glucose [Mass/Vol] 104 mg/dL High 74-99 [facility] Comment on above: Performed By: #### 2 4321-2 #### ALEK KENT ([id number]) [facility] ([facility]) [address] [place] [address] 06166 Potassium [Moles/Vol] 4.1 mmol/L Normal 3.5-5.3 [facility] Comment on above: Performed By: #### 2 4321-2 #### ALEK KENT ([id number]) [facility] ([facility]) [address] [place] [address] 46846 Sodium [Moles/Vol] 139 mmol/L Normal 136-145 [facility] Comment on above: Performed By: #### 2 4321-2 #### ALEK KENT ([id number]) [facility] ([facility]) [address] [place] [address] 70451 Urea nitrogen [Mass/Vol] 38 mg/dL High 6-23 [facility] Comment on above: Performed By: #### 2 4321-2 #### ALEK KENT ([id number]) [facility] (C) [address] [place] [address] 34324 CBC panel Auto (Bld)on 04-28 Erythrocyte distribution width (RBC) [Ratio] 13.8 % Normal 11.5-14.5 [facility] Comment on above: Performed By: #### 5 8410-2 #### ALEK KENT ([id number]) [facility] ([facility]) [address] [place] [address] 79996 Hematocrit (Bld) [Volume fraction] 43.7 % Normal 36.0-46.0 [facility] Comment on above: Performed By: #### 5 8410-2 #### ALEK KENT ([id number]) [facility] ([facility]) [address] [place] [address] 55906 Hemoglobin (Bld) [Mass/Vol] 13.5 g/dL Normal 12.0-16.0 [facility] Comment on above: Performed By: #### 5 8410-2 #### ALEK KENT ([id number]) [facility] ([facility]) [address] [place] [address] 93227 MCH (RBC) [Entitic mass] 29.5 pg Normal 26.0-34.0 [facility] Comment on above: Performed By: #### 5 8410-2 #### ALEK KENT ([id number]) [facility] ([facility]) [address] [place] [address] 56707 MCHC (RBC) [Mass/Vol] 30.9 g/dL Low 32.0-36.0 [facility] Comment on above: Performed By: #### 5 8410-2 #### ALEK KENT ([id number]) [facility] ([facility]) [address] [place] [address] 29370 MCV (RBC) [Entitic vol] 95 fL Normal 80-100 [facility] Comment on above: Performed By: #### 5 8410-2 #### ALEK KENT ([id number]) [facility] ([facility]) [address] [place] [address] 38287 Nucleated RBC/100 WBC (Bld) [Ratio] 0.0 /100 WBCs Normal 0.0-0.0 [facility] Comment on above: Performed By: #### 5 8410-2 #### ALEK KENT ([id number]) [facility] ([facility]) [address] [place] [address] 49569 Platelets (Bld) [#/Vol] 244 x10*3/uL Normal 150-450 [facility] Comment on above: Performed By: #### 5 8410-2 #### ALEK KENT ([id number]) [facility] ([facility]) [address] [place] [address] 16601 RBC (Bld) [#/Vol] 4.58 x10*6/uL Normal 4.00-5.20 [facility] Comment on above: Performed By: #### 5 8410-2 #### ANAIBELIRANDALL AILYN PULIDO ([id number]) [facility] ([facility]) [address] [place] [address] WBC (Bld) [#/Vol] 6.4 x10*3/uL Normal 4.4-11.3 [facility] Amb[facility] Comment on above: Performed By: #### 5 8410-2 #### JUANIBELIRANDALL AILYN PULIDO ([id number]) [facility] ([facility]) [address] [place] [address] ANGIO CHEST PRE PULMONARY VEIN ABLATION [...] PM -------- ORIGINAL REPORT -------- Dictation workstation: [id number] Interpreted By: Katie Asencio, STUDY: CT ANGIO CHEST PRE PULMONARY VEIN ABLATION PLANNING GATED; 05/01/2025 3:37 pm INDICATION: Signs/Symptoms:AFIB. with history of atrial fibrillation, being evaluated for radiofrequency ablation of pulmonary veins. Cardiac CTA is requested for evaluation of the pulmonary venous anatomy, including ostial measurements. COMPARISON: None. ACCESSION NUMBER(S): [id number] ORDERING CLINICIAN: MAXWELL MEDRANO TECHNIQUE: Multi-detector CT [...] of left atrial/left atrial appendage thrombus. Reading Hardware Engineer: Dr. Ramirez (more content not included)... Normal [facility] Coagulation tissue factor in ducedon 04-28-2025 PT Coag (PPP) [Time] 16.3 s High 9.8-12.4 [facility] Comment on above: Performed By: #### 5 902-2 #### ALEK KENT ([id number]) [facility] ([facility]) [address] [place] [address] Creatinineon 04-28-2025 Creatinine [Mass/Vol] 1.69 mg/dL High 0.50-1.05 [facility] Comment on above: Performed By: #### 2 160-0 #### ROXY ARORA ([id number]) [facility] ([facility]) [address] [place] [address] Creatinine [Mass/Vol]on Glomerular filtration rate 30 mL/min/1.73m*2 Low >60 [facility] Comment on above: Result Comment: Calc ulations of estimated GFR are performed using the 2020 CKD-EPI Study Refit equation without the race variable for the IDMS-Traceable creatinine methods. https://jasn.asnjournals.org/content/early/ASN.63333 60389 Performed By: #### 2 160-0 #### ROXY ARORA ([id number]) [facility] ([facility]) [address] [place] [address] PT Coag (PPP) [Time]on 04-28 INR Coag (PPP) [Relative time] 1.5 High 0.9-1.1 [facility] Amb[facility] Comment on above: Performed By: #### 5 902-2 #### ALEK KENT ([id number]) [facility] ([facility]) [address] [place] [address] 17635 Cardiac Device Check - Remot davin 01-30-2025 [facility] Work Phone: Radiology Study observation (narrative) [facility] Work Phone: Alanine aminotransferase [En zymatic activity/volume] in Serum or PlasmaOrdered By: Ángel Minaya on 01-23-2025 ALT [Catalytic activity/Vol] Alanine aminotransferase [Enzymatic activity/volume] in Serum or Plasma 7-52 [facility] Albumin [Mass/volume] in Ser um or Plasma by Bromocresol green (BCG) dye binding methoOrdered By: Ángel Minaya on 01-23-2025 Albumin BCG dye [Mass/Vol] Albumin [Mass/volume] in Serum or Plasma by Bromocresol green (BCG) dye binding metho 3.5-5.7 [facility] Alkaline phosphatase [Enzyma tic activity/volume] in Serum or PlasmaOrdered By: Ángel Minaya on 01-23-2025 ALP [Catalytic activity/Vol] Alkaline phosphatase [Enzymatic activity/volume] in Serum or Plasma 34-104 [facility] Amphetamine Screen Ql (U)Ord ered By: Ángel Minaya on 01-23-2025 Amphetamines Ql (U) Amphetamines screen Negativ e [facility] Aspartate aminotransferase [ Enzymatic activity/volume] in Serum or PlasmaOrdered By: Ángel Minaya on 01-23-2025 AST [Catalytic activity/Vol] Aspartate aminotransferase [Enzymatic activity/volume] in Serum or Plasma 13-39 [facility] Barbiturates [Presence] in U rine by Screen methodOrdered By: Ángel Minaya on 01-23-2025 Barbiturates Screen Ql (U) Barbiturates [Presence] in Urine by Screen method Negative [facility] Basophils Auto (Bld) [#/Vol] Ordered By: Ángel Minaya on 01-23-2025 Basophils (Bld) [#/Vol] Automated basophil count 0.0-0.2 [facility] Basophils/100 WBC Auto (Bld) Ordered By: Ángel Minaya on 01-23-2025 Basophils/100 WBC (Bld) Automated basophil % . [facility] Benzodiazepines Screen Ql (U )Ordered By: Ángel Minaya on 01-23-2025 Benzodiazepines Ql (U) Benzodiazepines [ Presence] in Urine by Screen method Negative [facility] Benzoylecgonine [Presence] i n Urine by Screen methodOrdered By: Ángel Minaya on 01-23-2025 Benzoylecgonine Screen Ql (U) Benzoylecgonine [Presence] in Urine by Screen method Negative [facility] Bilirubin.total [Mass/volume ] in Serum or PlasmaOrdered By: Ángel Minaya on 01-23-2025 Bilirubin [Mass/Vol] Bilirubin.total [Mass/volume] in Serum or Plasma 0.3-1.0 [facility] Calcium [Mass/volume] in Ser um or PlasmaOrdered By: Ángel Minaya on 01-23-2025 Calcium [Mass/Vol] Calcium [Mass/volume ] in Serum or Plasma 8.6-10.3 [facility] Cannabinoids [Presence] in U rine by Screen methodOrdered By: Ángel Minaya on 01-23-2025 Cannabinoids Screen Ql (U) Cannabinoids [Presence] in Urine by Screen method Negative [facility] Comment on above: These are unconfirme [...] l [Moles/volume] in Serum or Plasma 21.0-31.0 [facility] Chloride [Moles/volume] in S vaughn or PlasmaOrdered By: Ángel Minaya on 01-23-2025 Chloride [Moles/Vol] Chloride [Moles/vol ume] in Serum or Plasma 98-107 [facility] Complete Blood Count Auto Di ffon 01-23-2025 Basophils (Bld) [#/Vol] 0.1 10*3/uL Normal 0.0-0.2 [facility] Comment on above: Result Comment: PERF ORMED BY: [facility] [place] [address] PATHOLOGIST SUPERVISOR [employer]SEM[employer] ROOM REENA JIN M.D. Performed By: #### P HOS, MG, CMP, CBC ####[address] Basophils/100 WBC (Bld) 0.9 % Normal . [facility] Comment on above: Performed By: #### P HOS, MG, CMP, CBC ####[address] Eosinophils (Bld) [#/Vol] 0.2 10*3/uL Normal 0.0-0.45 [facility] Comment on above: Performed By: #### P HOS, MG, CMP, CBC ####[address] Eosinophils/100 WBC (Bld) 2.5 % Normal . [facility] Comment on above: Performed By: #### P HOS, MG, CMP, CBC ####[address] Erythrocyte distribution width (RBC) [Ratio] 13.9 % Normal 11.9-15.3 [facility] Comment on above: Performed By: #### P HOS, MG, CMP, CBC ####[address] Hematocrit (Bld) [Volume fraction] 36.5 % Normal 34.0-46.4 [facility] Comment on above: Performed By: #### P HOS, MG, CMP, CBC ####[address] Hemoglobin (Bld) [Mass/Vol] 12.4 g/dL Normal 11.8-15.4 [facility] Comment on above: Performed By: #### P HOS, MG, CMP, CBC ####[address] Lymphocytes (Bld) [#/Vol] 1.1 10*3/uL Normal 1.00-4.8 [facility] Comment on above: Performed By: #### P HOS, MG, CMP, CBC ####[address] Lymphocytes/100 WBC (Bld) 15.4 % Normal . [facility] Comment on above: Performed By: #### P HOS, MG, CMP, CBC ####[address] MCH (RBC) [Entitic mass] 30.5 pg Normal 24.7-34.3 [facility] Comment on above: Performed By: #### P HOS, MG, CMP, CBC ####[address] MCV (RBC) [Entitic vol] 89.8 fL Normal 80-100 [facility] Comment on above: Performed By: #### P HOS, MG, CMP, CBC ####[address] Mean Corpuscular HGB Conc 34.0 g/dL Normal 32.0-35.0 [facility] Comment on above: Performed By: #### P HOS, MG, CMP, CBC ####[address] Monocytes (Bld) [#/Vol] 0.5 10*3/uL Normal 0.0-0.8 [facility] Comment on above: Performed By: #### P HOS, MG, CMP, CBC ####[address] Monocytes/100 WBC (Bld) 23.36 % High 0.00-20.00 [facility] Comment on above: Result Comment: For adults in ED, MDW > 20.0 may be associated with a higher risk of sepsis during the first 12 hrs of hospital admission Performed By: #### P HOS, MG, CMP, CBC ####[address] Monocytes/100 WBC (Bld) 7.6 % Normal . [facility] Comment on above: Performed By: #### P HOS, MG, CMP, CBC ####[address] Neutrophils (Bld) [#/Vol] 5.2 10*3/uL Normal 1.8-7.7 [facility] Comment on above: Performed By: #### P HOS, MG, CMP, CBC ####[address] Neutrophils/100 WBC (Bld) 73.6 % Normal . [facility] Comment on above: Performed By: #### P HOS, MG, CMP, CBC ####[address] NRBC% 0.1 /100{WBC} Normal 0-0.5 [facility] Comment on above: Performed By: #### P HOS, MG, CMP, CBC ####[address] Platelet mean volume (Bld) [Entitic vol] 9.1 fL Normal 6.3-10.7 [facility] Comment on above: Performed By: #### P HOS, MG, CMP, CBC ####[address] Platelets (Bld) [#/Vol] 224 10*3/uL Normal 150-450 [facility] Comment on above: Performed By: #### P HOS, MG, CMP, CBC ####[address] RBC (Bld) [#/Vol] 4.06 10*6/uL Normal 3.60-5.00 [facility] Comment on above: Performed By: #### P HOS, MG, CMP, CBC ####[address] WBC (Bld) [#/Vol] 7.0 10*3/uL Normal 3.8-11.6 [facility] Comment on above: Performed By: #### P HOS, MG, CMP, CBC ####[address] Comprehensive Metabolic Pane violeta 01-23-2025 Albumin [Mass/Vol] 3.6 g/dL Normal 3.5-5.7 [facility] Comment on above: Performed By: #### P HOS, MG, CMP, CBC ####[address] Albumin/Globulin [Mass ratio] 1.4 {ratio} Normal [facility] Comment on above: Performed By: #### P HOS, MG, CMP, CBC ####[address] ALP [Catalytic activity/Vol] 71 U/L Normal 34-104 [facility] Comment on above: Performed By: #### P HOS, MG, CMP, CBC ####[address] ALT [Catalytic activity/Vol] 20 U/L Normal 7-52 [facility] Comment on above: Performed By: #### P HOS, MG, CMP, CBC ####[address] Anion gap [Moles/Vol] 11.4 mmol/L Normal 6.0-15.0 e [facility] Comment on above: Performed By: #### P HOS, MG, CMP, CBC ####[address] AST [Catalytic activity/Vol] 24 U/L Normal 13-39 [facility] Comment on above: Performed By: #### P HOS, MG, CMP, CBC ####[address] Bilirubin [Mass/Vol] 1.0 mg/dL Normal 0.3-1.0 [facility] Comment on above: Performed By: #### P HOS, MG, CMP, CBC ####[address] Calcium [Mass/Vol] 8.6 mg/dL Normal 8.6-10.3 [facility] Comment on above: Performed By: #### P HOS, MG, CMP, CBC ####[address] Chloride [Moles/Vol] 105 mmol/L Normal 98-107 [facility] Comment on above: Performed By: #### P HOS, MG, CMP, CBC ####[address] CO2 [Moles/Vol] 27.3 mmol/L Normal 21.0-31.0 [facility] Comment on above: Performed By: #### P HOS, MG, CMP, CBC ####[address] Creatinine [Mass/Vol] 1.20 mg/dL Normal 0.60-1.20 [facility] Comment on above: Performed By: #### P HOS, MG, CMP, CBC ####[address] Creatinine Clr Calc Pharmacy 28.86 Normal [facility] Comment on above: Performed By: #### P HOS, MG, CMP, CBC ####[address] Estimated GFR 45.195 mL/Min Normal [facility] Comment on above: Performed By: #### P HOS, MG, CMP, CBC ####[address] Globulin (S) [Mass/Vol] 2.5 g/dL Normal [facility] Comment on above: Performed By: #### P HOS, MG, CMP, CBC ####[address] Glucose [Mass/Vol] 85 mg/dL Normal 70-100 [facility] Comment on above: Result Comment: [facility] Glucose Reference Range is dependent on time and content of last meal. Glucose of more than 200 mg/dL in a nonstressed, ambulatory subject supports the diagnosis of Diabetes Mellitus. ADA recommended reference range Performed By: #### P HOS, MG, CMP, CBC ####[address] Potassium [Moles/Vol] 3.7 mmol/L Normal 3.5-5.1 [facility] Comment on above: Performed By: #### P HOS, MG, CMP, CBC ####[address] Protein [Mass/Vol] 6.1 g/dL Low 6.4-8.9 [facility] Comment on above: Performed By: #### P HOS, MG, CMP, CBC ####[address] Sodium [Moles/Vol] 140 mmol/L Normal 136-145 [facility] Comment on above: Performed By: #### P HOS, MG, CMP, CBC ####[address] Urea nitrogen [Mass/Vol] 25 mg/dL Normal 7-25 [facility] Comment on above: Performed By: #### P HOS, MG, CMP, CBC ####[address] Creatinine [Mass/volume] in Serum or PlasmaOrdered By: Ángel Minaya on 01-23-2025 Creatinine [Mass/Vol] Creatinine [Mass/v olume] in Serum or Plasma 0.60-1.20 [facility] Drug Screen,Urineon 01-24-20 25 Amphetamine Screen,Urine Negative Normal Negative [facility] Comment on above: Performed By: #### U RDS ####[place] [id number] [facility] Barbiturate Screen,Urine Negative Normal Negative [facility] Comment on above: Performed By: #### U RDS ####[address] Benzodiazepines Screen,Urine Negative Normal Negative [facility] Comment on above: Performed By: #### U RDS ####[address] Cannabinoid Screen,Urine Negative Normal Negative [facility] Comment on above: Result Comment: Thes e are unconfirmed results and should not be used for legal purposes. Drug Cut-Off Concentration: AMPH 1000 ng/mL RAMESH 200 ng/mL ANAI 200 ng/mL COCM 300 ng/mL OP 300 ng/mL PCP 25 ng/mL THC 20 ng/mL PERFORMED BY: [facility] [address] [place] [address] PATHOLOGIST SUPERVISOR ASSEMBLY ROOM REENA JIN M.D. Performed By: #### U RDS ####[place] [id number] [address] Cocaine Screen,Urine Negative Normal Negative [facility] Comment on above: Performed By: #### U RDS ####[address] Opiate Screen,Urine Positive High Negative [facility] Comment on above: Performed By: #### U RDS ####[address] Phencyclidine Screen,Urine Negative Normal Negative [facility] Comment on above: Performed By: #### U RDS ####[address] Eosinophils Auto (Bld) [#/Vo l]Ordered By: Ángel Minaya on 01-23-2025 Eosinophils (Bld) [#/Vol] Automated eosinophil count 0.0-0.45 [facility] Eosinophils/100 WBC Auto (Bl d)Ordered By: Ángel Minaya on 01-23-2025 Eosinophils/100 WBC (Bld) Automated eosinophil % . [facility] Erythrocyte distribution wid th Auto (RBC) [Ratio]Ordered By: Ángel Minaya on 01-23-2025 Erythrocyte distribution width (RBC) [Ratio] Erythrocyte distribution width [Ratio] by Automated count 11.9-15.3 [facility] Globulin Calc (S) [Mass/Vol] Ordered By: Ángel Minaya on 01-23-2025 Globulin (S) [Mass/Vol] Serum globulin measurement by calculation (mass/volume) [facility] Glucose [Mass/volume] in Ser um or PlasmaOrdered By: Ángel Minaya on 01-23-2025 Glucose [Mass/Vol] Glucose [Mass/volume ] in Serum or Plasma 70-100 [facility] Comment on above: ADA recommended refe rence rangeRandom Glucose Reference Range is dependent on time and content of last meal. Glucose of more than 200 mg/dL in a nonstressed, ambulatory subject supports the diagnosis of Diabetes Mellitus. Hematocrit Auto (Bld) [Volum e fraction]Ordered By: Ángel Minaya on 01-23-2025 Hematocrit (Bld) [Volume fraction] Hematocrit [Volume Fraction] of Blood by Automated count 34.0-46.4 [facility] Hemoglobin [Mass/volume] in BloodOrdered By: Ángel Minaya on 01-23-2025 Hemoglobin (Bld) [Mass/Vol] Hemoglobin [Mass/volume] in Blood 11.8-15.4 [facility] Leukocytes [#/volume] correc anne marie for nucleated erythrocytes in Blood by Automated counOrdered By: Ángel Minaya on 01-23-2025 WBC corrected for nucl RBC Auto (Bld) [#/Vol] Leukocytes [#/volume] corrected for nucleated erythrocytes in Blood by Automated coun 3.8-11.6 [facility] Lymphocytes Auto (Bld) [#/Vo l]Ordered By: Ángel Minaya on 01-23-2025 Lymphocytes (Bld) [#/Vol] Lymphocytes [#/volume] in Blood by Automated count 1.00-4.8 [facility] Lymphocytes/100 WBC Auto (Bl d)Ordered By: Ángel Minaya on 01-23-2025 Lymphocytes/100 WBC (Bld) Lymphocytes/100 leukocytes in Blood by Automated count . [facility] MCH Auto (RBC) [Entitic mass ]Ordered By: Ángel Minaya on 01-23-2025 MCH (RBC) [Entitic mass] MCH [Entitic mass] by Automated count 24.7-34.3 [facility] MCHC Auto (RBC) [Mass/Vol]Or dered By: Ángel Minaya on 01-23-2025 MCHC (RBC) [Mass/Vol] MCHC [Mass/volume] by Automated count 32.0-35.0 [facility] MCV Auto (RBC) [Entitic vol] Ordered By: Ángel Minaya on 01-23-2025 MCV (RBC) [Entitic vol] MCV [Entitic volume] by Automated count 80-100 [facility] Magnesiumon 01-23-2025 Magnesium [Mass/Vol] 2.0 mg/dL Normal 1.9-2.7 [facility] Comment on above: Result Comment: PERF ORMED BY: [facility] [address] [place] [address] PATHOLOGIST [employer] REENA JIN M.D. Performed By: #### P HOS, MG, CMP, CBC ####[facility] [place] [address] [facility] Magnesium [Mass/volume] in S vaughn or PlasmaOrdered By: Ángel Minaya on 01-23-2025 Magnesium [Mass/Vol] Magnesium [Mass/vol ume] in Serum or Plasma 1.9-2.7 [facility] Monocyte distribution width [Entitic volume] in Blood by AutomatedOrdered By: Ángel Minaya on 01-23-2025 Monocyte distribution width Auto (Bld) [Entitic vol] Monocyte distribution width [Entitic volume] in Blood by Automated High 0.00-20.00 [facility] Comment on above: For adults in ED, MD W > 20.0 may be associated with a higher risk of sepsis during the first 12 hrs of hospital admission Monocytes Auto (Bld) [#/Vol] Ordered By: Ángel Minaya on 01-23-2025 Monocytes (Bld) [#/Vol] Automated blood monocyte count 0.0-0.8 [facility] Monocytes/100 WBC Auto (Bld) Ordered By: Ángel Minaya on 01-23-2025 Monocytes/100 WBC (Bld) Automated monocyte % . [facility] Neutrophils Auto (Bld) [#/Vo l]Ordered By: Ángel Minaya on 01-23-2025 Neutrophils (Bld) [#/Vol] Neutrophils [#/volume] in Blood by Automated count 1.8-7.7 [facility] Neutrophils/100 WBC Auto (Bl d)Ordered By: Ángel Minaya on 01-23-2025 Neutrophils/100 WBC (Bld) Automated neutrophil % . [facility] No Panel InformationOrdered By: Ángel Minaya on 01-23-2025 Estimated GFR (CKD-EPI) 45.195 mL/Min [facility] Creatinine Clearance (Chem 28.86 [facility] Nucleated erythrocytes [Pres ence] in Blood by Automated countOrdered By: Ángel Minaya on 01-23-2025 Nucleated RBC Auto Ql (Bld) Nucleated erythrocytes [Presence] in Blood by Automated count 0-0.5 [facility] Opiates [Presence] in Urine by Screen methodOrdered By: Ángel Minaya on 01-23-2025 Opiates Screen Ql (U) Opiates [Presence] in Urine by Screen method High Negative [facility] Phencyclidine Screen Ql (U)O rdered By: Ángel Minaya on 01-23-2025 Phencyclidine Ql (U) Phencyclidine [Pres ence] in Urine by Screen method Negative [facility] Phosphate [Mass/volume] in S vaughn or PlasmaOrdered By: Ángel Minaya on 01-23-2025 Phosphate [Mass/Vol] Phosphate [Mass/vol ume] in Serum or Plasma 2.5-4.5 [facility] Phosphoruson 01-23-2025 Phosphate [Mass/Vol] 4.4 mg/dL Normal 2.5-4.5 [facility] Comment on above: Performed By: #### P HOS, MG, CMP, CBC ####[facility] [id number] [place] [address] [facility] Platelet mean volume Auto (B ld) [Entitic vol]Ordered By: Ángel Minaya on 01-23-2025 Platelet mean volume (Bld) [Entitic vol] Platelet mean volume [Entitic volume] in Blood by Automated count 6.3-10.7 [facility] Platelets Auto (Bld) [#/Vol] Ordered By: Ángel Minaya on 01-23-2025 Platelets (Bld) [#/Vol] Platelets [#/volume] in Blood by Automated count 150-450 [facility] Potassium [Moles/volume] in Serum or PlasmaOrdered By: Ángel Minaya on 01-23-2025 Potassium [Moles/Vol] Potassium [Moles/v olume] in Serum or Plasma 3.5-5.1 [facility] Protein [Mass/volume] in Ser um or PlasmaOrdered By: Ángel Minaya on 01-23-2025 Protein [Mass/Vol] Protein [Mass/volume ] in Serum or Plasma Low 6.4-8.9 [facility] RBC Auto (Bld) [#/Vol]Ordere d By: Ángel Minaya on 01-23-2025 RBC (Bld) [#/Vol] Erythrocytes [#/volu me] in Blood by Automated count 3.60-5.00 [facility] Serum or plasma albumin/glob ulin mass ratioOrdered By: Ángel Minaya on 01-23-2025 Albumin/Globulin [Mass ratio] Serum or plasma albumin/globulin mass ratio [facility] Serum or plasma anion gap de terminationOrdered By: Ángel Minaya on 01-23-2025 Anion gap [Moles/Vol] Serum or plasma an ion gap determination 6.0-15.0 [facility] Sodium [Moles/volume] in Ser um or PlasmaOrdered By: Ángel Minaya on 01-23-2025 Sodium [Moles/Vol] Sodium [Moles/volume ] in Serum or Plasma 136-145 [facility] Urea nitrogen [Mass/volume] in Serum or PlasmaOrdered By: Ángel Minaya on 01-23-2025 Urea nitrogen [Mass/Vol] Urea nitrogen [Mass/volume] in Serum or Plasma 7-25 [facility] WBC Auto (Bld) [#/Vol]Ordere d By: Ángel Minaya on 01-23-2025 WBC (Bld) [#/Vol] Leukocytes [#/volume ] in Blood by Automated count 3.8-11.6 [facility] Alanine aminotransferase [En zymatic activity/volume] in Serum or PlasmaOrdered By: Maggie Rod on 01-22-2025 ALT [Catalytic activity/Vol] Alanine aminotransferase [Enzymatic activity/volume] in Serum or Plasma 7-52 [facility] Albumin [Mass/volume] in Ser um or Plasma by Bromocresol green (BCG) dye binding methoOrdered By: Maggie Rod on 01-22-2025 Albumin BCG dye [Mass/Vol] Albumin [Mass/volume] in Serum or Plasma by Bromocresol green (BCG) dye binding metho 3.5-5.7 [facility] Alkaline phosphatase [Enzyma tic activity/volume] in Serum or PlasmaOrdered By: Maggie Rod on 01-22-2025 ALP [Catalytic activity/Vol] Alkaline phosphatase [Enzymatic activity/volume] in Serum or Plasma 34-104 [facility] Aspartate aminotransferase [ Enzymatic activity/volume] in Serum or PlasmaOrdered By: Maggie Rod on 01-22-2025 AST [Catalytic activity/Vol] Aspartate aminotransferase [Enzymatic activity/volume] in Serum or Plasma 13-39 [facility] B-Type Natriuretic Peptideon 01-22-2025 Natriuretic peptide B (Bld) [Mass/Vol] 192.0 pg/mL High 5-100 [facility] Comment on above: Result Comment: PERF ORMED BY: [facility] [address] [place] [address] PATHOLOGIST [employer] REENA JIN M.D. Performed By: #### P T, CK, HS TROP, PTT, CBC, BNP, CMP, MG ####[facility] [place] [address] [facility] Basophils Auto (Bld) [#/Vol] Ordered By: Maggie Rod on 01-22-2025 Basophils (Bld) [#/Vol] Automated basophil count 0.0-0.2 [facility] Basophils/100 WBC Auto (Bld) Ordered By: Maggie Rod on 01-22-2025 Basophils/100 WBC (Bld) Automated basophil % . [facility] Bilirubin.total [Mass/volume ] in Serum or PlasmaOrdered By: Maggie Rod on 01-22-2025 Bilirubin [Mass/Vol] Bilirubin.total [Mass/volume] in Serum or Plasma High 0.3-1.0 [facility] Calcium [Mass/volume] in Ser um or PlasmaOrdered By: Maggie Rod on 01-22-2025 Calcium [Mass/Vol] Calcium [Mass/volume ] in Serum or Plasma 8.6-10.3 [facility] Carbon dioxide, total [Moles /volume] in Serum or PlasmaOrdered By: Maggie Rod on 01-22-2025 CO2 [Moles/Vol] Carbon dioxide, tota l [Moles/volume] in Serum or Plasma 21.0-31.0 [facility] Chloride [Moles/volume] in S vaughn or PlasmaOrdered By: Maggie Rod on 01-22-2025 Chloride [Moles/Vol] Chloride [Moles/vol ume] in Serum or Plasma 98-107 [facility] Complete Blood Count Auto Di ffon 01-22-2025 Basophils (Bld) [#/Vol] 0.1 10*3/uL Normal 0.0-0.2 [facility] Comment on above: Result Comment: PERF ORMED BY: [facility] [address] [place] [address] PATHOLOGIST [employer] REENA JIN M.D. Performed By: #### P T, CK, HS TROP, PTT, CBC, BNP, CMP, MG ####[address] Basophils/100 WBC (Bld) 1.2 % Normal . [facility] Comment on above: Performed By: #### P T, CK, HS TROP, PTT, CBC, BNP, CMP, MG ####[address] Eosinophils (Bld) [#/Vol] 0.2 10*3/uL Normal 0.0-0.45 [facility] Comment on above: Performed By: #### P T, CK, HS TROP, PTT, CBC, BNP, CMP, MG ####[address] Eosinophils/100 WBC (Bld) 2.5 % Normal . [facility] Comment on above: Performed By: #### P T, CK, HS TROP, PTT, CBC, BNP, CMP, MG ####[address] Erythrocyte distribution width (RBC) [Ratio] 14.4 % Normal 11.9-15.3 [facility] Comment on above: Performed By: #### P T, CK, HS TROP, PTT, CBC, BNP, CMP, MG ####[address] [place] [address] [place] Hematocrit (Bld) [Volume fraction] 38.5 % Normal 34.0-46.4 [facility] Comment on above: Performed By: #### P T, CK, HS TROP, PTT, CBC, BNP, CMP, MG ####[address] Hemoglobin (Bld) [Mass/Vol] 13.3 g/dL Normal 11.8-15.4 [facility] Comment on above: Performed By: #### P T, CK, HS TROP, PTT, CBC, BNP, CMP, MG ####[address] Lymphocytes (Bld) [#/Vol] 1.4 10*3/uL Normal 1.00-4.8 [facility] Comment on above: Performed By: #### P T, CK, HS TROP, PTT, CBC, BNP, CMP, MG ####[address] Lymphocytes/100 WBC (Bld) 17.7 % Normal . [facility] Comment on above: Performed By: #### P T, CK, HS TROP, PTT, CBC, BNP, CMP, MG ####[address] MCH (RBC) [Entitic mass] 30.9 pg Normal 24.7-34.3 [facility] Comment on above: Performed By: #### P T, CK, HS TROP, PTT, CBC, BNP, CMP, MG ####[address] MCV (RBC) [Entitic vol] 89.4 fL Normal 80-100 [facility] Comment on above: Performed By: #### P T, CK, HS TROP, PTT, CBC, BNP, CMP, MG ####[address] Mean Corpuscular HGB Conc 34.6 g/dL Normal 32.0-35.0 [facility] Comment on above: Performed By: #### P T, CK, HS TROP, PTT, CBC, BNP, CMP, MG ####[address] Monocytes (Bld) [#/Vol] 0.6 10*3/uL Normal 0.0-0.8 [facility] Comment on above: Performed By: #### P T, CK, HS TROP, PTT, CBC, BNP, CMP, MG ####[address] Monocytes/100 WBC (Bld) 20.85 % High 0.00-20.00 [facility] Comment on above: Result Comment: For adults in ED, MDW > 20.0 may be associated with a higher risk of sepsis during the first 12 hrs of hospital admission Performed By: #### P T, CK, HS TROP, PTT, CBC, BNP, CMP, MG ####[address] Monocytes/100 WBC (Bld) 7.9 % Normal . [facility] Comment on above: Performed By: #### P T, CK, HS TROP, PTT, CBC, BNP, CMP, MG ####[address] Neutrophils (Bld) [#/Vol] 5.5 10*3/uL Normal 1.8-7.7 [facility] Comment on above: Performed By: #### P T, CK, HS TROP, PTT, CBC, BNP, CMP, MG ####[address] Neutrophils/100 WBC (Bld) 70.7 % Normal . [facility] Comment on above: Performed By: #### P T, CK, HS TROP, PTT, CBC, BNP, CMP, MG ####[address] NRBC% 0.2 /100{WBC} Normal 0-0.5 [facility] Comment on above: Performed By: #### P T, CK, HS TROP, PTT, CBC, BNP, CMP, MG ####[address] Platelet mean volume (Bld) [Entitic vol] 8.6 fL Normal 6.3-10.7 [facility] Comment on above: Performed By: #### P T, CK, HS TROP, PTT, CBC, BNP, CMP, MG ####[address] Platelets (Bld) [#/Vol] 240 10*3/uL Normal 150-450 [facility] Comment on above: Performed By: #### P T, CK, HS TROP, PTT, CBC, BNP, CMP, MG ####[address] RBC (Bld) [#/Vol] 4.31 10*6/uL Normal 3.60-5.00 [facility] Comment on above: Performed By: #### P T, CK, HS TROP, PTT, CBC, BNP, CMP, MG ####[address] WBC (Bld) [#/Vol] 7.8 10*3/uL Normal 3.8-11.6 [facility] Comment on above: Performed By: #### P T, CK, HS TROP, PTT, CBC, BNP, CMP, MG ####[address] Comprehensive Metabolic Pane violeta 01-22-2025 Albumin [Mass/Vol] 4.0 g/dL Normal 3.5-5.7 [facility] Comment on above: Performed By: #### P T, CK, HS TROP, PTT, CBC, BNP, CMP, MG ####[address] Albumin/Globulin [Mass ratio] 1.4 {ratio} Normal [facility] Comment on above: Performed By: #### P T, CK, HS TROP, PTT, CBC, BNP, CMP, MG ####[address] ALP [Catalytic activity/Vol] 87 U/L Normal 34-104 [facility] Comment on above: Performed By: #### P T, CK, HS TROP, PTT, CBC, BNP, CMP, MG ####[address] ALT [Catalytic activity/Vol] 19 U/L Normal 7-52 [facility] Comment on above: Performed By: #### P T, CK, HS TROP, PTT, CBC, BNP, CMP, MG ####[address] Anion gap [Moles/Vol] 12.2 mmol/L Normal 6.0-15.0 [facility] Comment on above: Performed By: #### P T, CK, HS TROP, PTT, CBC, BNP, CMP, MG ####[address] AST [Catalytic activity/Vol] 23 U/L Normal 13-39 [facility] Comment on above: Performed By: #### P T, CK, HS TROP, PTT, CBC, BNP, CMP, MG ####[address] Bilirubin [Mass/Vol] 1.2 mg/dL High 0.3-1.0 [facility] Comment on above: Performed By: #### P T, CK, HS TROP, PTT, CBC, BNP, CMP, MG ####[address] Calcium [Mass/Vol] 9.2 mg/dL Normal 8.6-10.3 [facility] Comment on above: Performed By: #### P T, CK, HS TROP, PTT, CBC, BNP, CMP, MG ####[address] Chloride [Moles/Vol] 105 mmol/L Normal 98-107 [facility] Comment on above: Performed By: #### P T, CK, HS TROP, PTT, CBC, BNP, CMP, MG ####[address] CO2 [Moles/Vol] 25.7 mmol/L Normal 21.0-31.0 [facility] Comment on above: Performed By: #### P T, CK, HS TROP, PTT, CBC, BNP, CMP, MG ####[address] Creatinine [Mass/Vol] 1.13 mg/dL Normal 0.60-1.20 [facility] Comment on above: Performed By: #### P T, CK, HS TROP, PTT, CBC, BNP, CMP, MG ####[address] Creatinine Clr Calc Pharmacy 30.77 Normal [facility] Comment on above: Performed By: #### P T, CK, HS TROP, PTT, CBC, BNP, CMP, MG ####[address] Estimated GFR 48.575 mL/Min Normal [facility] Comment on above: Performed By: #### P T, CK, HS TROP, PTT, CBC, BNP, CMP, MG ####[address] Globulin (S) [Mass/Vol] 2.9 g/dL Normal [facility] Comment on above: Performed By: #### P T, CK, HS TROP, PTT, CBC, BNP, CMP, MG ####[address] Glucose [Mass/Vol] 103 mg/dL High 70-100 [facility] Comment on above: Result Comment: [facility] Glucose Reference Range is dependent on time and content of last meal. Glucose of more than 200 mg/dL in a nonstressed, ambulatory subject supports the diagnosis of Diabetes Mellitus. ADA recommended reference range Performed By: #### P T, CK, HS TROP, PTT, CBC, BNP, CMP, MG ####[address] Potassium [Moles/Vol] 3.9 mmol/L Normal 3.5-5.1 [facility] Comment on above: Performed By: #### P T, CK, HS TROP, PTT, CBC, BNP, CMP, MG ####[address] Protein [Mass/Vol] 6.9 g/dL Normal 6.4-8.9 [facility] Comment on above: Performed By: #### P T, CK, HS TROP, PTT, CBC, BNP, CMP, MG ####[address] Sodium [Moles/Vol] 139 mmol/L Normal 136-145 [facility] Comment on above: Performed By: #### P T, CK, HS TROP, PTT, CBC, BNP, CMP, MG ####[address] Urea nitrogen [Mass/Vol] 27 mg/dL High 7-25 [facility] Comment on above: Performed By: #### P T, CK, HS TROP, PTT, CBC, BNP, CMP, MG ####[address] Creatine Kinaseon 01-22-2025 CK [Catalytic activity/Vol] 41 U/L Normal 30-223 [facility] Comment on above: Performed By: #### P T, CK, HS TROP, PTT, CBC, BNP, CMP, MG ####[address] Creatine kinase [Enzymatic a ctivity/volume] in Serum or PlasmaOrdered By: Maggie Rod on 01-22-2025 CK [Catalytic activity/Vol] Creatine kinase [Enzymatic activity/volume] in Serum or Plasma 30-223 [facility] Creatinine [Mass/volume] in Serum or PlasmaOrdered By: Maggie Rod on 01-22-2025 Creatinine [Mass/Vol] Creatinine [Mass/v olume] in Serum or Plasma 0.60-1.20 [facility] ECG 12 lead ECGon 01-22-2025 ECG 12 lead ECG [facility] [address] [place] [address] Electrocardiograph Report Signed Patient: Austin Golden MR#: [id number] 8 : 1940 Acct:[id number] Age/Sex: 84 / F ADM Date: 01/22/25 Loc: 3T Room: [address] [place] [address] Type: ADM IN Attending Dr: Ángel Minaya [...] Atrial fibrillation Confirmed by MAGGIE ROD MD ([id number]) on 01/23/2025 5:45:25 AM Referred By: Electronically Signed By: MAGGIE ROD MD Transcribed By: MUS Signed By Maggie Rod Jr, MD 0545 Normal [facility] ECG 12 lead ECG [facility] [place] [address] Electrocardiograph Report Signed Patient: Austin Golden MR#: [id number] 8 : 1940 Acct:[id number] Age/Sex: 84 / F ADM Date: 01/22/25 Loc: Room: [address] [place] [address] Type: ADM IN Attending Dr: Ángel Minaya [...] Anterolateral leads Confirmed by MAGGIE ROD MD ([id number]) on 01/23/2025 5:42:20 AM Referred By: Electronically Signed By: MAGGIE ROD MD Transcribed By: MUS Signed By Maggie Rod Jr, MD 0542 Normal [facility] Eosinophils Auto (Bld) [#/Vo l]Ordered By: Maggie Rod on 01-22-2025 Eosinophils (Bld) [#/Vol] Automated eosinophil count 0.0-0.45 [facility] Eosinophils/100 WBC Auto (Bl d)Ordered By: Maggie Rod on 01-22-2025 Eosinophils/100 WBC (Bld) Automated eosinophil % . [facility] Erythrocyte distribution wid th Auto (RBC) [Ratio]Ordered By: Maggie Rod on 01-22-2025 Erythrocyte distribution width (RBC) [Ratio] Erythrocyte distribution width [Ratio] by Automated count 11.9-15.3 [facility] Globulin Calc (S) [Mass/Vol] Ordered By: Maggie Rod on 01-22-2025 Globulin (S) [Mass/Vol] Serum globulin measurement by calculation (mass/volume) [facility] Glucose [Mass/volume] in Ser um or PlasmaOrdered By: Maggie Rod on 01-22-2025 Glucose [Mass/Vol] Glucose [Mass/volume ] in Serum or Plasma High 70-100 [facility] Comment on above: ADA recommended refe rence rangeRandom Glucose Reference Range is dependent on time and content of last meal. Glucose of more than 200 mg/dL in a nonstressed, ambulatory subject supports the diagnosis of Diabetes Mellitus. Hematocrit Auto (Bld) [Volum e fraction]Ordered By: Maggie Rod on 01-22-2025 Hematocrit (Bld) [Volume fraction] Hematocrit [Volume Fraction] of Blood by Automated count 34.0-46.4 [facility] Hemoglobin [Mass/volume] in BloodOrdered By: Maggie Rod on 01-22-2025 Hemoglobin (Bld) [Mass/Vol] Hemoglobin [Mass/volume] in Blood 11.8-15.4 [facility] INR in Platelet poor plasma by Coagulation assayOrdered By: Maggie Rod on 01-22-2025 INR Coag (PPP) [Relative time] INR in Platelet poor plasma by Coagulation assay [facility] Comment on above: INR Therapeutic Rang [...] erythrocytes in Blood by Automated coun 3.8-11.6 [facility] Lymphocytes Auto (Bld) [#/Vo l]Ordered By: Maggie Rod on 01-22-2025 Lymphocytes (Bld) [#/Vol] Lymphocytes [#/volume] in Blood by Automated count 1.00-4.8 [facility] Lymphocytes/100 WBC Auto (Bl d)Ordered By: Maggie Rod on 01-22-2025 Lymphocytes/100 WBC (Bld) Lymphocytes/100 leukocytes in Blood by Automated count . [facility] MCH Auto (RBC) [Entitic mass ]Ordered By: Maggie Rod on 01-22-2025 MCH (RBC) [Entitic mass] MCH [Entitic mass] by Automated count 24.7-34.3 [facility] MCHC Auto (RBC) [Mass/Vol]Or dered By: Maggie Rod on 01-22-2025 MCHC (RBC) [Mass/Vol] MCHC [Mass/volume] by Automated count 32.0-35.0 [facility] MCV Auto (RBC) [Entitic vol] Ordered By: Maggie Rod on 01-22-2025 MCV (RBC) [Entitic vol] MCV [Entitic volume] by Automated count 80-100 [facility] Magnesiumon 01-22-2025 Magnesium [Mass/Vol] 2.1 mg/dL Normal 1.9-2.7 [facility] Comment on above: Result Comment: PERF ORMED BY: [facility] [address] [place] [address] PATHOLOGIST [employer] REENA JIN M.D. Performed By: #### P T, CK, HS TROP, PTT, CBC, BNP, CMP, MG ####[facility] [id number] [place] [id number] [facility] Magnesium [Mass/volume] in S vaughn or PlasmaOrdered By: Maggie Rod on 01-22-2025 Magnesium [Mass/Vol] Magnesium [Mass/vol ume] in Serum or Plasma 1.9-2.7 [facility] Monocyte distribution width [Entitic volume] in Blood by AutomatedOrdered By: Maggie Rod on 01-22-2025 Monocyte distribution width Auto (Bld) [Entitic vol] Monocyte distribution width [Entitic volume] in Blood by Automated High 0.00-20.00 [facility] Comment on above: For adults in ED, MD W > 20.0 may be associated with a higher risk of sepsis during the first 12 hrs of hospital admission Monocytes Auto (Bld) [#/Vol] Ordered By: Maggie Rod on 01-22-2025 Monocytes (Bld) [#/Vol] Automated blood monocyte count 0.0-0.8 [facility] Monocytes/100 WBC Auto (Bld) Ordered By: Maggie Rod on 01-22-2025 Monocytes/100 WBC (Bld) Automated monocyte % . [facility] Natriuretic peptide B [Mass/ Vol]Ordered By: Maggie Rod on 01-22-2025 Natriuretic peptide B (Bld) [Mass/Vol] BNP ser/plas High 5-100 [facility] Neutrophils Auto (Bld) [#/Vo l]Ordered By: Maggie Rod on 01-22-2025 Neutrophils (Bld) [#/Vol] Neutrophils [#/volume] in Blood by Automated count 1.8-7.7 [facility] Neutrophils/100 WBC Auto (Bl d)Ordered By: Maggie Rod on 01-22-2025 Neutrophils/100 WBC (Bld) Automated neutrophil % . [facility] No Panel InformationOrdered By: Maggie Rod on 01-22-2025 Estimated GFR (CKD-EPI) 48.575 mL/Min [facility] Creatinine Clearance (Chem 30.77 [facility] Nucleated erythrocytes [Pres ence] in Blood by Automated countOrdered By: Maggie Rod on 01-22-2025 Nucleated RBC Auto Ql (Bld) Nucleated erythrocytes [Presence] in Blood by Automated count 0-0.5 [facility] Partial Thromboplastin Timeo n 01-22-2025 aPTT Coag (Bld) [Time] 32.2 s Normal 25.1-36.5 [facility] Comment on above: Result Comment: A he matocrit value greater than 55% may lead to inaccurate results in coagulation testing. Patients having hematocrit values >55% require a special collection tube for coagulation studies. Please contact the laboratory at [phone] for redraw instructions. PERFORMED BY: [facility] [address] [address] [address] [id number] PATHOLOGIST SUPERVISOR ASSEMBLY ROOM REENA JIN M.D. Performed By: #### P T, CK, HS TROP, PTT, CBC, BNP, CMP, MG ####[facility] [id number] [place] [address] [facility] Platelet mean volume Auto (B ld) [Entitic vol]Ordered By: Maggie Rod on 01-22-2025 Platelet mean volume (Bld) [Entitic vol] Platelet mean volume [Entitic volume] in Blood by Automated count 6.3-10.7 [facility] Platelets Auto (Bld) [#/Vol] Ordered By: Maggie Rod on 01-22-2025 Platelets (Bld) [#/Vol] Platelets [#/volume] in Blood by Automated count 150-450 [facility] Potassium [Moles/volume] in Serum or PlasmaOrdered By: Maggie Rod on 01-22-2025 Potassium [Moles/Vol] Potassium [Moles/v olume] in Serum or Plasma 3.5-5.1 [facility] Protein [Mass/volume] in Ser um or PlasmaOrdered By: Maggie Rod on 01-22-2025 Protein [Mass/Vol] Protein [Mass/volume ] in Serum or Plasma 6.4-8.9 [facility] Prothrombin Time INRon 01-22 INR Coag (PPP) [Relative time] 1.2 {INR} Normal [facility] Comment on above: Result Comment: [...] HS TROP, PTT, CBC, BNP, CMP, MG ####[facility] [id number] [place] [id number] [facility] PT Coag (PPP) [Time] 13.9 s High 9.0-12.9 [facility] Comment on above: Result Comment: A he matocrit value greater than 55% may lead to inaccurate results in coagulation testing. Patients having hematocrit values >55% require a special collection tube for coagulation studies. Please contact the laboratory at [phone] for redraw instructions. Performed By: #### P T, CK, HS TROP, PTT, CBC, BNP, CMP, MG ####[facility] [place] [id number] [facility] Prothrombin time (PT)Ordered By: Maggie Rod on 01-22-2025 PT Coag (PPP) [Time] Prothrombin time (PT) High 9.0- 12.9 [facility] Comment on above: A hematocrit value g reater than 55% may lead to inaccurate results in coagulation testing. Patients having hematocrit values >55% require a special collection tube for coagulation studies. Please contact the laboratory at [phone] for redraw instructions. RBC Auto (Bld) [#/Vol]Ordere d By: Maggie Rod on 01-22-2025 RBC (Bld) [#/Vol] Erythrocytes [#/volu me] in Blood by Automated count 3.60-5.00 [facility] Serum or plasma albumin/glob ulin mass ratioOrdered By: Maggie Rod on 01-22-2025 Albumin/Globulin [Mass ratio] Serum or plasma albumin/globulin mass ratio [facility] Serum or plasma anion gap de terminationOrdered By: Maggie Rod on 01-22-2025 Anion gap [Moles/Vol] Serum or plasma an ion gap determination 6.0-15.0 [facility] Sodium [Moles/volume] in Ser um or PlasmaOrdered By: Maggie Rod on 01-22-2025 Sodium [Moles/Vol] Sodium [Moles/volume ] in Serum or Plasma 136-145 [facility] Troponin I High Sensitivityo n 01-22-2025 Troponin I High Sensitivity 15 Normal 0-15 [facility] Comment on above: Result Comment: The Troponin units of report have been changed to meet the Chest Pain Accreditation requirement, element EC5.M1l2. Troponin units are changed from pg/ml to ng/L. Also, the decimal is removed and results are in whole numbers. PERFORMED BY: [place] [address] PATHOLOGIST SUPERVISOR [employer]SEMBLY ROOM REENA JIN M.D. Performed By: #### P T, CK, HS TROP, PTT, CBC, BNP, CMP, MG ####[facility] [id number] Troponin I.cardiac [Mass/vol ume] in Serum or Plasma by Detection limit <= 0.01 ng/Ordered By: Maggie Rod on 01-22-2025 Troponin I.cardiac DL <= 0.01 ng/mL [Mass/Vol] Troponin I.cardiac [Mass/volume] in Serum or Plasma by Detection limit <= 0.01 ng/ 0-15 [facility] Comment on above: The Troponin units [...] [Mass/volume] in Serum or Plasma High 7-25 [facility] WBC Auto (Bld) [#/Vol]Ordere d By: Maggie Rod on 01-22-2025 WBC (Bld) [#/Vol] Leukocytes [#/volume ] in Blood by Automated count 3.8-11.6 [facility] X-ray reportOrdered By: Jadiel Borja on 01-22-2025 Study report [facility] [address] [place] [address] XRay Report Signed Patient: Austin Golden MR#: [id number] : 1940 Acct:[id number] Age/Sex: 84 / F ADM Date: 5 Loc: ER Room: Type: [facility] ER Attending Dr: Copies to: [...] Borja M.D. 01/22/2025 9:22 PM Dictation Location: [facility]--20 Transcribed By: [facility] 01/22/252121 Dictated By: Juanito Borja DO 01/22/252120 Signed By: 01/22/252121 [facility] XR chest 1V portableon 01-22 XR chest 1V portable [facility] [address] [place] [id number] XRay Report Signed Patient: Austin Golden MR#: [id number] : 1940 Acct:[id number] Age/Sex: 84 / F ADM Date: 01/22/25 Loc: Room: [address] [place] [address] Type: [facility] Attending Dr: Fahad Kim DO Copies [...] Borja M.D. 01/22/2025 9:22 PM Dictation Location: [place] [address] Transcribed By: [facility] 01/22/252121 Dictated By: Juanito Borja DO 01/22/252120 Signed By: 01/22/252121 Normal [facility] aPTT in Platelet poor plasma by Coagulation assayOrdered By: Maggie Rod on 01-22-2025 aPTT Coag (PPP) [Time] Activated partial thromboplastin time (aPTT) in platelet poor plasma by coagulation a 25.1-36.5 [facility] Comment on above: A hematocrit value g reater than 55% may lead to inaccurate results in coagulation testing. Patients having hematocrit values >55% require a special collection tube for coagulation studies. Please contact the laboratory at [phone] for redraw instructions. Basophils Auto (Bld) [#/Vol] on 01-21-2025 Basophils (Bld) [#/Vol] Automated basophil count 0.0-0.1 [facility] Basophils/100 WBC Auto (Bld) on 01-21-2025 Basophils/100 WBC (Bld) Automated basophil % 0.2-2.0 [facility] Eosinophils/100 WBC Auto (Bl d)on 01-21-2025 Eosinophils/100 WBC (Bld) Automated eosinophil % 0.9-7.0 [facility] Erythrocyte distribution wid th Auto (RBC) [Ratio]on 01-21-2025 Erythrocyte distribution width (RBC) [Ratio] Erythrocyte distribution width [Ratio] by Automated count 11.0-15.0 [facility] Estimated glomerular filtrat ion rate (GFR) non- Americanon 01-21-2025 GFR/1.73 sq M.predicted among non-blacks MDRD (S/P/Bld) [Vol rate/Area] Estimated glomerular filtration rate (GFR) non- Low >=60 mL/min/1.7 3m 2 [facility] Globulin Calc (S) [Mass/Vol] on 01-21-2025 Globulin (S) [Mass/Vol] Serum globulin measurement by calculation (mass/volume) [facility] Hematocrit Auto (Bld) [Volum e fraction]on 01-21-2025 Hematocrit (Bld) [Volume fraction] Hematocrit [Volume Fraction] of Blood by Automated count 36.0-48.0 [facility] Hemoglobin [Mass/volume] in Bloodon 01-21-2025 Hemoglobin (Bld) [Mass/Vol] Hemoglobin [Mass/volume] in Blood 12.0-16.0 [facility] Laboratory - Chemistry and C hemistry - challengeon 01-21-2025 Albumin [Mass/Vol] 3.3 g/dL Low 3.4-5.0 [facility] ALP [Catalytic activity/Vol] 105 U/L 46-116 [facility] ALT [Catalytic activity/Vol] 33 U/L 14-59 [facility] AST [Catalytic activity/Vol] 30 U/L 15-37 [facility] Bilirubin [Mass/Vol] 1.1 mg/dL High 0.2-1.0 [facility] Calcium [Mass/Vol] 9.0 mg/dL 8.5-10.1 [facility] Chloride [Moles/Vol] 105 mmol/L 98-107 [facility] CO2 [Moles/Vol] 27.9 mmol/L 21.0-32.0 [facility] Creatinine [Mass/Vol] 1.20 mg/dL High 0.55-1.02 [facility] GFR/1.73 sq M.predicted MDRD (S/P/Bld) [Vol rate/Area] 52 mL/min/{1.73_m2} Low >=60 mL/min/1.7 3m 2 [facility] Glucose [Mass/Vol] 98 mg/dL 74-106 [facility] Potassium [Moles/Vol] 4.2 mmol/L 3.5-5.1 [facility] Protein [Mass/Vol] 7.0 g/dL 6.4-8.2 [facility] Sodium [Moles/Vol] 143 mmol/L 136-145 [facility] TSH Qn 5.492 m[IU]/L High 0.358-3.74 0 [facility] Urea nitrogen [Mass/Vol] 23.0 mg/dL High 7.0-18.0 [facility] Urea nitrogen/Creatinine [Mass ratio] 19.2 mg/mg [facility] Laboratory - Hematology and Cell countson 01-21-2025 Immature granulocytes/100 WBC (Bld) 0.3 % 0.0-0.5 [facility] Leukocytes [#/volume] correc anne marie for nucleated erythrocytes in Blood by Automated counon 01-21-2025 WBC corrected for nucl RBC Auto (Bld) [#/Vol] Leukocytes [#/volume] corrected for nucleated erythrocytes in Blood by Automated coun 4.0-11.0 [facility] Lymphocytes Auto (Bld) [#/Vo l]on 01-21-2025 Lymphocytes (Bld) [#/Vol] Lymphocytes [#/volume] in Blood by Automated count 1.2-3.8 [facility] Lymphocytes/100 WBC Auto (Bl d)on 01-21-2025 Lymphocytes/100 WBC (Bld) Lymphocytes/100 leukocytes in Blood by Automated count Low 20.5-60.0 [facility] MCH Auto (RBC) [Entitic mass ]on 01-21-2025 MCH (RBC) [Entitic mass] MCH [Entitic mass] by Automated count 26.7-34.0 [facility] MCHC Auto (RBC) [Mass/Vol]on 01-21-2025 MCHC (RBC) [Mass/Vol] MCHC [Mass/volume] by Automated count 29.9-35.2 [facility] MCV Auto (RBC) [Entitic vol] on 01-21-2025 MCV (RBC) [Entitic vol] MCV [Entitic volume] by Automated count 81.0-99.0 [facility] Monocytes Auto (Bld) [#/Vol] on 01-21-2025 Monocytes (Bld) [#/Vol] Automated blood monocyte count 0.3-0.8 [facility] Monocytes/100 WBC Auto (Bld) on 01-21-2025 Monocytes/100 WBC (Bld) Automated monocyte % 1.7-12.0 [facility] Neutrophils Auto (Bld) [#/Vo l]on 01-21-2025 Neutrophils (Bld) [#/Vol] Neutrophils [#/volume] in Blood by Automated count 1.4-6.5 [facility] Neutrophils/100 WBC Auto (Bl d)on 01-21-2025 Neutrophils/100 WBC (Bld) Automated neutrophil % 43.0-75.0 [facility] No Panel Informationon 01-21 Eosinophils # (Auto) 0.3 10 3/uL 0.0-0.7 [facility] Immature Granulocyte # (Auto) 0.02 10 3/uL 0.00-0.03 [facility] Platelet mean volume Auto (B ld) [Entitic vol]on 01-21-2025 Platelet mean volume (Bld) [Entitic vol] Platelet mean volume [Entitic volume] in Blood by Automated count 9.5-13.5 [facility] Platelets Auto (Bld) [#/Vol] on 01-21-2025 Platelets (Bld) [#/Vol] Platelets [#/volume] in Blood by Automated count 150-450 [facility] RBC Auto (Bld) [#/Vol]on RBC (Bld) [#/Vol] Erythrocytes [#/volu me] in Blood by Automated count 4.20-5.40 [facility] Serum or plasma albumin/glob ulin mass ratioon 01-21-2025 Albumin/Globulin [Mass ratio] Serum or plasma albumin/globulin mass ratio [facility] Serum or plasma anion gap de terminationon 01-21-2025 Anion gap [Moles/Vol] Serum or plasma an ion gap determination [facility] Assessment AND Plan Noteon 0 01-06-2025 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 Message Text -discussed risks/benefits of surgery--it is high risk due to her age and revisional nature of it -she will talk to her family and let me know if she'd like to proceed with surgery or just live with it [facility] 01-06-2025 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 Message Text Phone numbers Preferred Documentation: Mode: Telephone Patient Patient Work Phone: Patient Cell Preferred phone: [phone] Consent: I confirmed patient understanding of the [...] OralBarium Sulfate 1 Tab Route: Oral FINDINGS: Mushroom Cutter fluoroscopic spot images of the abdomen: Non-obstructive [...] it Nigel El MD, FACS Normal [facility] [employer] [facility] Progress Noteson 12-31-2024 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 Message Text This encounter was opened in error. Patient was a No-Show. Please disregard. Called twice, left message to reschedule. Nigel El MD Normal [facility] [employer] [facility] Assessment AND Plan Noteon 0 12-30-2024 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 Message Text -Evidence of recurrence on imaging/EGD -discussed non-operative vs operative management, patient elects to Normal [facility] [employer] [facility] Progress Noteson 12-30-2024 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 Message Text This encounter was opened in error. Patient was a No-Show. Please disregard. Called many times, left message to reschedule. Nigel El MD Normal [facility] [employer] [facility] Telephone Encounteron 2024 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 Message Text [facility] 12/11 @ 9:30 cancelling appt. Left my number for r/s- SO Normal [facility] [employer] [facility] Anesthesia Postprocedure Taylor luationon 12-08-2024 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 Message Text Anesthesia Postoperative Assessment: [...] EVENTS: No notable events documented. 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 Adjustment of her medical [...] were discussed with the patient and/or legal title insurance sales representative. The risks, benefits and alternatives were reviewed. Questions regarding anesthesia were answered. Patient and/or legal title insurance sales representative knows such anesthetics and procedures may be performed by Resident physicians, Certified Anesthesiologist Assistants, or Certified Nurse Anesthetists under the supervision of a physician. The patient /or the patient's legal title insurance sales representative agree with the plan for anesthesia. MHPATFORM Normal [facility] Anesthesia Transfer Of Dick n 12-08-2024 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 Message Text Patient taken to [...] report was received. KOMAL Richardson Normal [facility] [employer] [facility] Blood Attestationon 12-09-19 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 Message Text Blood Attestation: ATTESTATION OF INFORMED CONSENT FOR BLOOD: The transfusion of blood and/or blood components were discussed with the patient and/or legal title insurance sales representative. The risks, benefits and alternatives were reviewed. Questions regarding blood transfusions were answered. The patient /or the patient's legal title insurance sales representative agree with the plan for transfusion of blood and/or blood components. Normal [facility] [employer] [facility] H AND Rudolph 12-08-2024 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 Message Text [facility] GENERAL SURGERY H AND P Austin Golden [id number] History (HPI) Austin Golden is a 84 [...] Garima Sotomayor MD General Surgery Normal [facility] [employer] [facility] OP Noteon 12-08-2024 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 Message Text Austin Golden 84 year old Surgical Contact Serial Number: [id number] Location: ENDO 04 Date: 12/08/2024 TUNNEL MAN: Nigel El MD ATTENDING:Nigel El MD Procedure(s): ESOPHAGOGASTRODUODENOSCOPY WITH ENDOFLIP INSTRUMENT: Scope #[id number] SEDATION: Anesthesia Assisted Pre-Op Diagnosis Codes: * [...] hernia without obstruction or gangrene (Primary Diagnosis) [733799] Hiatal hernia [516488] Gastroesophageal reflux disease without esophagitis [849725] TEE PATH SPECIMEN SENT: no SPECIMEN: None [...] please contact the endoscopy center Mon-Fri 7:30am-4pm [phone] or after hours general [facility] number [phone] Severe abdominal pain that keeps getting worse Fever or any other signs of infection Nausea or vomiting blood Seeing persistent blood coming out of your rectum, with or without stool (some streaks or drops of blood may be expected) For any additional questions, please call the endoscopy center at [phone] Follow-up with your Primary Care Provider CC: Primary Care Provider: No primary care provider on file. PERSON COMPLETING NOTE: Nigel El MD 12/08/2024 at 10:41 AM Patient meets criteria for discharge/transfer: Nigel El MD Normal [facility] [employer] [facility] Telephone Encounteron 2024 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 Message Text What is the [...] your last menstrual period? N/a Protocols used: [id number] Normal [facility] [employer] [facility] Interface Message Text What is the need: Situation: returning patients call Background: n/a Assessment: pt unable to provide three identifiers, states she is sick and to call back later. Recommendation: no advise given, RN offered to call 911 for patient, pt declined. Bonnie Clarke RN Normal [facility] [employer] [facility] Adaptive Planning Authentication Interface Message Text Caller: The Pt Symptoms: Pt states that she is not able to keep food down. Patient is requesting a call back from the Triage Nurse. Thank you! Normal [facility] [employer] [facility] Interface Message Text Pt calling to check the status of her previous message requesting a sooner GI appointment with Dr. Charles Yung. Pt states that she is not able to keep boost or food down, (it keeps coming up). Please return call to Pt at: . Thank you Normal [facility] [employer] [facility] Telephone Encounteron 2024 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 Message Text Situation: pt is [...] if needed Recommendation: see above Normal [facility] [employer] [facility] Progress Noteson 11-14-2024 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 Message Text Documentation: Mode: Telephone Patient Patient Work Phone: Patient Cell Preferred phone: [phone] Consent: I confirmed patient understanding of the [...] Yung MD Division of Gastroenterology AND Hepatology [facility] 11/14/24, 11:49 AM Normal [facility] Telephone Encounteron 2024 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 Message Text Situation: swallowing difficulties [...] last menstrual period? N/a Protocols used: Swallowing [id number] Normal [facility] [employer] [facility] 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 Message Text Caller warm-transferred to [facility] Nurse for Sx/Jaiword situation of: Food getting stuck in throat Pt states white fluid comes out of patients mouth and nose runs 3-4 hours. Cannot eat anything solid. Cannot hold down the Boost drink. Pt states lost weight couple lbs a week Pt did states had a manometry test 05/29/2024 there was a block age Symptoms are coming back Caller's Telephone Number: Telephone Information: Normal [facility] [employer] [facility] Telephone Encounteron 2024 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 Message Text Phoned patient to [...] resort is to loosen raul. Normal [facility] [employer] [facility] 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 Message Text Situation: Vomiting. Having [...] your last menstrual period? N/A Protocols used: [id number] Normal [facility] [employer] [facility] 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 Message Text Symptoms - frequent vomiting Per decision tree transfer to nurse Normal [facility] [employer] [facility] Hemoglobin [Mass/volume] in Bloodon 10-01-2024 Hemoglobin (Bld) [Mass/Vol] Hemoglobin [Mass/volume] in Blood 12.0-16.0 [facility] Alanine aminotransferase [En zymatic activity/volume] in Serum or PlasmaOrdered By: Gracia Craig on 09-12-2024 ALT [Catalytic activity/Vol] Alanine aminotransferase [Enzymatic activity/volume] in Serum or Plasma 7-52 [facility] Albumin [Mass/volume] in Ser um or Plasma by Bromocresol green (BCG) dye binding methoOrdered By: Gracia Craig on 09-12-2024 Albumin BCG dye [Mass/Vol] Albumin [Mass/volume] in Serum or Plasma by Bromocresol green (BCG) dye binding metho 3.5-5.7 [facility] Alkaline phosphatase [Enzyma tic activity/volume] in Serum or PlasmaOrdered By: Gracia Craig on 09-12-2024 ALP [Catalytic activity/Vol] Alkaline phosphatase [Enzymatic activity/volume] in Serum or Plasma 34-104 [facility] Aspartate aminotransferase [ Enzymatic activity/volume] in Serum or PlasmaOrdered By: Gracia Craig on 09-12-2024 AST [Catalytic activity/Vol] Aspartate aminotransferase [Enzymatic activity/volume] in Serum or Plasma 13-39 [facility] B-Type Natriuretic Peptideon 09-12-2024 Natriuretic peptide B (Bld) [Mass/Vol] 170.0 pg/mL High 5-100 [facility] Comment on above: Result Comment: PERF ORMED BY: [facility] [address] [place] [id number] PATHOLOGIST SUPERVISOR ASSEMBLY ROOM AKILAH LOMBARDO M.D. Performed By: #### P T, CMP, BNP, HS TROP, CK, CBC ####[facility] [id number] [place] [address] [facility] Basophils Auto (Bld) [#/Vol] Ordered By: Gracia Craig on 09-12-2024 Basophils (Bld) [#/Vol] Automated basophil count 0.0-0.2 [facility] Basophils/100 WBC Auto (Bld) Ordered By: Gracia Craig on 09-12-2024 Basophils/100 WBC (Bld) Automated basophil % . [facility] Bilirubin.total [Mass/volume ] in Serum or PlasmaOrdered By: Gracia Craig on 09-12-2024 Bilirubin [Mass/Vol] Bilirubin.total [Mass/volume] in Serum or Plasma 0.3-1.0 [facility] COVID Cepheid NegativeOrdere d By: Gracia Craig on 09-12-2024 SARS-CoV-2 (COVID-19) Ab IA Ql COVID Cepheid Negative [facility] Comment on above: This is a [...] or Cepheid Disclaimer revoked sooner. PERFORMED BY: [place] [address] PATHOLOGIST SUPERVISOR [employer]SEM[employer] ROOM AKILAH LOMBARDO M.D. Normal [facility] Comment on above: Performed By: #### C OVID19 FLU RSV, CEPHEID NEG ####[facility] [id number] [place] [address] [facility] CT chest wo roselia 09-12-2024 CT chest [place] [facility] [address] CT Scan Report Signed Patient: Austin Golden MR#: [id number] 8 : 1940 Acct:[id number] Age/Sex: 83 / F ADM Date: 09/12/24 Loc: ER Room: Type: [facility] ER Attending Dr: Copies to: [...] Thomas Haskins M.D.09/12/2024 12:37 PM Dictation Location: [place] [address] Transcribed By: [facility] 09/12/24 1237 Dictated By: Thomas Haskins II, MD 09/12/24 1233 Signed By: 09/12/24 1237 Normal [facility] Calcium [Mass/volume] in Ser um or PlasmaOrdered By: Gracia Craig on 09-12-2024 Calcium [Mass/Vol] Calcium [Mass/volume ] in Serum or Plasma 8.6-10.3 [facility] Carbon dioxide, total [Moles /volume] in Serum or PlasmaOrdered By: Gracia Craig on 09-12-2024 CO2 [Moles/Vol] Carbon dioxide, tota l [Moles/volume] in Serum or Plasma 21.0-31.0 [facility] Cepheid COVID PCR Negativeon 09-12-2024 SARS-CoV-2 (COVID-19) RNA GUILLERMO+probe Ql (Unsp spec) Negative Normal Negative [facility] Comment on above: Result Comment: This is a duplicate CepCampEasyid Xpert Xpress CoV-2/Flu/RSV Plus RNA by RT-PCR result to be used for statistical tracking purpose only. PERFORMED BY: [facility] [address] [facility] [place] [address] PATHOLOGIST SUPERVISOR [employer] RO[employer] AKILAH LOMBARDO M.D. Performed By: #### C OVID19 FLU RSV, CEPHEID NEG ####[place] [address] [place] [address] [place] Chloride [Moles/volume] in S vaughn or PlasmaOrdered By: Gracia Craig on 09-12-2024 Chloride [Moles/Vol] Chloride [Moles/vol ume] in Serum or Plasma 98-107 [facility] Complete Blood Count Auto Di ffon 09-12-2024 Basophils (Bld) [#/Vol] 0.0 10*3/uL Normal 0.0-0.2 [facility] Comment on above: Result Comment: PERF ORMED BY: [facility] [address] [facility] [place] [address] PATHOLOGIST SUPERVIS[employer] AKILAH LOMBARDO M.D. Performed By: #### P T, CMP, BNP, HS TROP, CK, CBC ####[place] [address] [place] [address] [place] Basophils/100 WBC (Bld) 0.2 % Normal . [facility] Comment on above: Performed By: #### P T, CMP, BNP, HS TROP, CK, CBC ####[place] [address] [place] [address] [place] Eosinophils (Bld) [#/Vol] 0.2 10*3/uL Normal 0.0-0.45 [facility] Comment on above: Performed By: #### P T, CMP, BNP, HS TROP, CK, CBC ####[address] Eosinophils/100 WBC (Bld) 2.0 % Normal . [facility] Comment on above: Performed By: #### P T, CMP, BNP, HS TROP, CK, CBC ####[address] Erythrocyte distribution width (RBC) [Ratio] 15.1 % Normal 11.9-15.3 [facility] Comment on above: Performed By: #### P T, CMP, BNP, HS TROP, CK, CBC ####[address] Hematocrit (Bld) [Volume fraction] 49.4 % Significant change up 34.0-46.4 [facility] Comment on above: Performed By: #### P T, CMP, BNP, HS TROP, CK, CBC ####[address] Hemoglobin (Bld) [Mass/Vol] 16.2 g/dL High 11.8-15.4 [facility] Comment on above: Performed By: #### P T, CMP, BNP, HS TROP, CK, CBC ####[address] Lymphocytes (Bld) [#/Vol] 0.9 10*3/uL Low 1.00-4.8 [facility] Comment on above: Performed By: #### P T, CMP, BNP, HS TROP, CK, CBC ####[address] Lymphocytes/100 WBC (Bld) 11.4 % Normal . [facility] Comment on above: Performed By: #### P T, CMP, BNP, HS TROP, CK, CBC ####[address] MCH (RBC) [Entitic mass] 30.6 pg Normal 24.7-34.3 [facility] Comment on above: Performed By: #### P T, CMP, BNP, HS TROP, CK, CBC ####[address] MCV (RBC) [Entitic vol] 93.2 fL Normal 80-100 [facility] Comment on above: Performed By: #### P T, CMP, BNP, HS TROP, CK, CBC ####[address] Mean Corpuscular HGB Conc 32.9 g/dL Normal 32.0-35.0 [facility] Comment on above: Performed By: #### P T, CMP, BNP, HS TROP, CK, CBC ####[address] Monocytes (Bld) [#/Vol] 0.5 10*3/uL Normal 0.0-0.8 [facility] Comment on above: Performed By: #### P T, CMP, BNP, HS TROP, CK, CBC ####[address] Monocytes/100 WBC (Bld) 16.23 % Normal 0.00-20.00 [facility] Comment on above: Performed By: #### P T, CMP, BNP, HS TROP, CK, CBC ####[address] Monocytes/100 WBC (Bld) 5.7 % Normal . [facility] Comment on above: Performed By: #### P T, CMP, BNP, HS TROP, CK, CBC ####[address] Neutrophils (Bld) [#/Vol] 6.5 10*3/uL Normal 1.8-7.7 [facility] Comment on above: Performed By: #### P T, CMP, BNP, HS TROP, CK, CBC ####[address] Neutrophils/100 WBC (Bld) 80.7 % Normal . [facility] Comment on above: Performed By: #### P T, CMP, BNP, HS TROP, CK, CBC ####[address] NRBC% 0.6 /100{WBC} High 0-0.5 [facility] Comment on above: Performed By: #### P T, CMP, BNP, HS TROP, CK, CBC ####[address] Platelet mean volume (Bld) [Entitic vol] 8.4 fL Normal 6.3-10.7 [facility] Comment on above: Performed By: #### P T, CMP, BNP, HS TROP, CK, CBC ####[address] Platelets (Bld) [#/Vol] 196 10*3/uL Normal 150-450 [facility] Comment on above: Performed By: #### P T, CMP, BNP, HS TROP, CK, CBC ####[address] RBC (Bld) [#/Vol] 5.30 10*6/uL High 3.60-5.00 [facility] Comment on above: Performed By: #### P T, CMP, BNP, HS TROP, CK, CBC ####[address] WBC (Bld) [#/Vol] 8.0 10*3/uL Normal 3.8-11.6 [facility] Comment on above: Performed By: #### P T, CMP, BNP, HS TROP, CK, CBC ####[address] Comprehensive Metabolic Pane violeta 09-12-2024 Albumin [Mass/Vol] 4.0 g/dL Normal 3.5-5.7 [facility] Comment on above: Performed By: #### P T, CMP, BNP, HS TROP, CK, CBC ####[address] Albumin/Globulin [Mass ratio] 1.4 {ratio} Normal [facility] Comment on above: Performed By: #### P T, CMP, BNP, HS TROP, CK, CBC ####[address] ALP [Catalytic activity/Vol] 90 U/L Normal 34-104 [facility] Comment on above: Performed By: #### P T, CMP, BNP, HS TROP, CK, CBC ####[address] ALT [Catalytic activity/Vol] 20 U/L Normal 7-52 [facility] Comment on above: Performed By: #### P T, CMP, BNP, HS TROP, CK, CBC ####[address] Anion gap [Moles/Vol] 14.8 mmol/L Normal 6.0-15.0 [facility] Comment on above: Performed By: #### P T, CMP, BNP, HS TROP, CK, CBC ####[address] AST [Catalytic activity/Vol] 28 U/L Normal 13-39 [facility] Comment on above: Performed By: #### P T, CMP, BNP, HS TROP, CK, CBC ####[address] Bilirubin [Mass/Vol] 1.0 mg/dL Normal 0.3-1.0 [facility] Comment on above: Performed By: #### P T, CMP, BNP, HS TROP, CK, CBC ####[address] Calcium [Mass/Vol] 9.5 mg/dL Normal 8.6-10.3 [facility] Comment on above: Performed By: #### P T, CMP, BNP, HS TROP, CK, CBC ####[address] Chloride [Moles/Vol] 105 mmol/L Normal 98-107 [facility] Comment on above: Performed By: #### P T, CMP, BNP, HS TROP, CK, CBC ####[address] CO2 [Moles/Vol] 23.8 mmol/L Normal 21.0-31.0 [facility] Comment on above: Performed By: #### P T, CMP, BNP, HS TROP, CK, CBC ####[address] Creatinine [Mass/Vol] 1.22 mg/dL High 0.60-1.20 [facility] Comment on above: Performed By: #### P T, CMP, BNP, HS TROP, CK, CBC ####[address] Creatinine Clr Calc Pharmacy 30.27 Normal [facility] Comment on above: Result Comment: PERF ORMED BY: [place] [address] PATHOLOGIST SUPERVISOR [employer]SEM[employer] ROOM AKILAH LOMBARDO M.D. Performed By: #### P T, CMP, BNP, HS TROP, CK, CBC ####[address] Estimated GFR 44.584 mL/Min Normal [facility] Comment on above: Performed By: #### P T, CMP, BNP, HS TROP, CK, CBC ####[address] Globulin (S) [Mass/Vol] 2.8 g/dL Normal [facility] Comment on above: Performed By: #### P T, CMP, BNP, HS TROP, CK, CBC ####[address] Glucose [Mass/Vol] 110 mg/dL High 70-100 [facility] Comment on above: Result Comment: [place] Glucose Reference Range is dependent on time and content of last meal. Glucose of more than 200 mg/dL in a nonstressed, ambulatory subject supports the diagnosis of Diabetes Mellitus. ADA recommended reference range Performed By: #### P T, CMP, BNP, HS TROP, CK, CBC ####[address] Potassium [Moles/Vol] 3.6 mmol/L Normal 3.5-5.1 [facility] Comment on above: Performed By: #### P T, CMP, BNP, HS TROP, CK, CBC ####[address] Protein [Mass/Vol] 6.8 g/dL Normal 6.4-8.9 [facility] Comment on above: Performed By: #### P T, CMP, BNP, HS TROP, CK, CBC ####[address] Sodium [Moles/Vol] 140 mmol/L Normal 136-145 [facility] Comment on above: Performed By: #### P T, CMP, BNP, HS TROP, CK, CBC ####[address] Urea nitrogen [Mass/Vol] 29 mg/dL High 7-25 [facility] Comment on above: Performed By: #### P T, CMP, BNP, HS TROP, CK, CBC ####[address] Creatine Kinaseon 09-12-2024 CK [Catalytic activity/Vol] 53 U/L Normal 30-223 [facility] Comment on above: Performed By: #### P T, CMP, BNP, HS TROP, CK, CBC ####[address] Creatine kinase [Enzymatic a ctivity/volume] in Serum or PlasmaOrdered By: Gracia Craig on 09-12-2024 CK [Catalytic activity/Vol] Creatine kinase [Enzymatic activity/volume] in Serum or Plasma 30- [facility] Creatinine [Mass/volume] in Serum or PlasmaOrdered By: Gracia Craig on 09-12-2024 Creatinine [Mass/Vol] Creatinine [Mass/v olume] in Serum or Plasma High 0.60-1.20 [facility] ECG 12 lead ECGon 09-12-2024 ECG 12 lead ECG [facility] [place] [address] Electrocardiograph Report Signed Patient: Austin Golden MR#: [id number] 8 : 1940 Acct:[id number] Age/Sex: 83 / F ADM Date: 09/12/24 Loc: ER Room: Type: [facility] ER Attending Dr: Ordering Provider: Gracia Craig [...] Electronic ventricular pacemaker Confirmed by Vipin Awad ([id number]) on 2024 6:02:22 PM Referred By: Electronically Signed By: Vipin Awad Transcribed By: MUS Signed By Vipin Awad MD 09/14/24 180 Normal [facility] Eosinophils Auto (Bld) [#/Vo l]Ordered By: Gracia Craig on 09-12-2024 Eosinophils (Bld) [#/Vol] Automated eosinophil count 0.0-0.45 [facility] Eosinophils/100 WBC Auto (Bl d)Ordered By: Gracia Craig on 09-12-2024 Eosinophils/100 WBC (Bld) Automated eosinophil % . [facility] Erythrocyte distribution wid th Auto (RBC) [Ratio]Ordered By: Gracia Craig on 09-12-2024 Erythrocyte distribution width (RBC) [Ratio] Erythrocyte distribution width [Ratio] by Automated count 11.9-15.3 [facility] Globulin Calc (S) [Mass/Vol] Ordered By: Gracia Craig on 09-12-2024 Globulin (S) [Mass/Vol] Serum globulin measurement by calculation (mass/volume) [facility] Glucose [Mass/volume] in Ser um or PlasmaOrdered By: Gracia Craig on 09-12-2024 Glucose [Mass/Vol] Glucose [Mass/volume ] in Serum or Plasma High 70-100 [facility] Comment on above: ADA recommended refe [...] by Automated count Invalid Interpretation Code 34.0-46.4 [facility] Comment on above: Delta: 40.2 on 09/11 Hemoglobin [Mass/volume] in BloodOrdered By: Gracia Craig on 09-12-2024 Hemoglobin (Bld) [Mass/Vol] Hemoglobin [Mass/volume] in Blood High 11.8-15.4 [facility] INR in Platelet poor plasma by Coagulation assayOrdered By: Gracia Craig on 09-12-2024 INR Coag (PPP) [Relative time] INR in Platelet poor plasma by Coagulation assay [facility] Comment on above: INR Therapeutic Rang [...] erythrocytes in Blood by Automated coun 3.8-11.6 [facility] Lymphocytes Auto (Bld) [#/Vo l]Ordered By: Gracia Craig on 09-12-2024 Lymphocytes (Bld) [#/Vol] Lymphocytes [#/volume] in Blood by Automated count Low 1.00-4.8 [facility] Lymphocytes/100 WBC Auto (Bl d)Ordered By: Gracia Craig on 09-12-2024 Lymphocytes/100 WBC (Bld) Lymphocytes/100 leukocytes in Blood by Automated count . [facility] MCH Auto (RBC) [Entitic mass ]Ordered By: Graciacatrina Craig on 09-12-2024 MCH (RBC) [Entitic mass] MCH [Entitic mass] by Automated count 24.7-34.3 [facility] MCHC Auto (RBC) [Mass/Vol]Or dered By: Graciacatrina Craig on 09-12-2024 MCHC (RBC) [Mass/Vol] MCHC [Mass/volume] by Automated count 32.0-35.0 [facility] MCV Auto (RBC) [Entitic vol] Ordered By: Graciacatrina Craig on 09-12-2024 MCV (RBC) [Entitic vol] MCV [Entitic volume] by Automated count 80-100 [facility] Monocyte distribution width [Entitic volume] in Blood by AutomatedOrdered By: Graciacatrina Craig on 09-12-2024 Monocyte distribution width Auto (Bld) [Entitic vol] Monocyte distribution width [Entitic volume] in Blood by Automated 0.00-20.00 [facility] Monocytes Auto (Bld) [#/Vol] Ordered By: Graciacatrina Craig on 09-12-2024 Monocytes (Bld) [#/Vol] Automated blood monocyte count 0.0-0.8 [facility] Monocytes/100 WBC Auto (Bld) Ordered By: Graciacatrina Craig on 09-12-2024 Monocytes/100 WBC (Bld) Automated monocyte % . [facility] Natriuretic peptide B [Mass/ Vol]Ordered By: Gracia Craig on 09-12-2024 Natriuretic peptide B (Bld) [Mass/Vol] BNP ser/plas High 5-100 [facility] Neutrophils Auto (Bld) [#/Vo l]Ordered By: Graciacatrina Craig 09-12-2024 Neutrophils (Bld) [#/Vol] Neutrophils [#/volume] in Blood by Automated count 1.8-7.7 [facility] Neutrophils/100 WBC Auto (Bl d)Ordered By: Graciacatrina Craig on 09-12-2024 Neutrophils/100 WBC (Bld) Automated neutrophil % . [facility] No Panel InformationOrdered By: Graciacatrina Craig on 09-12-2024 Estimated GFR (CKD-EPI) 44.584 mL/Min [facility] Creatinine Clearance (Chem 30.27 [facility] Nucleated erythrocytes [Pres ence] in Blood by Automated countOrdered By: Gracia Craig on 09-12-2024 Nucleated RBC Auto Ql (Bld) Nucleated erythrocytes [Presence] in Blood by Automated count High 0-0.5 [facility] Platelet mean volume Auto (B ld) [Entitic vol]Ordered By: Gracia Craig on 09-12-2024 Platelet mean volume (Bld) [Entitic vol] Platelet mean volume [Entitic volume] in Blood by Automated count 6.3-10.7 [facility] Platelets Auto (Bld) [#/Vol] Ordered By: Gracia Craig on 09-12-2024 Platelets (Bld) [#/Vol] Platelets [#/volume] in Blood by Automated count 150-450 [facility] Potassium [Moles/volume] in Serum or PlasmaOrdered By: Gracia Craig on 09-12-2024 Potassium [Moles/Vol] Potassium [Moles/v olume] in Serum or Plasma 3.5-5.1 [facility] Protein [Mass/volume] in Ser um or PlasmaOrdered By: Gracia Craig on 09-12-2024 Protein [Mass/Vol] Protein [Mass/volume ] in Serum or Plasma 6.4-8.9 [facility] Prothrombin Time INRon 09-12 INR Coag (PPP) [Relative time] 1.6 {INR} Normal [facility] Comment on above: Result Comment: [...] heart valves: 3 - 4.5 PERFORMED BY: [facility] [address] [place] [address] PATHOLOGIST SUPERVISOR [employer] ROOM AKILAH LOMBARDO M.D. Performed By: #### P T, CMP, BNP, HS TROP, CK, CBC ####[facility] [id number] [place] [address] [facility] PT Coag (PPP) [Time] 18.3 s High 9.0-12.9 [facility] Comment on above: Result Comment: A he matocrit value greater than 55% may lead to inaccurate results in coagulation testing. Patients having hematocrit values >55% require a special collection tube for coagulation studies. Please contact the laboratory at [phone] for redraw instructions. Performed By: #### P T, CMP, BNP, HS TROP, CK, CBC ####[facility] [id number] [place] [address] [facility] Prothrombin time (PT)Ordered By: Gracia Craig on 09-12-2024 PT Coag (PPP) [Time] Prothrombin time (PT) High 9.0- 12.9 [facility] Comment on above: A hematocrit value g reater than 55% may lead to inaccurate results in coagulation testing. Patients having hematocrit values >55% require a special collection tube for coagulation studies. Please contact the laboratory at [phone] for redraw instructions. RBC Auto (Bld) [#/Vol]Ordere d By: Gracia Craig on 09-12-2024 RBC (Bld) [#/Vol] Erythrocytes [#/volu me] in Blood by Automated count High 3.60-5.00 [facility] Respiratory specimen influen za A virus, influenza B virus, respiratory syncytical virOrdered By: Gracia Craig 09-12-2024 SARS-CoV-2 (COVID-19) RNA GUILLERMO+probe Ql (Unsp spec) Respiratory specimen influenza A virus, influenza B virus, respiratory syncytical vir [facility] Serum or plasma albumin/glob ulin mass ratioOrdered By: Gracia Craig 09-12-2024 Albumin/Globulin [Mass ratio] Serum or plasma albumin/globulin mass ratio [facility] Serum or plasma anion gap de terminationOrdered By: Gracia Craig 09-12-2024 Anion gap [Moles/Vol] Serum or plasma an ion gap determination 6.0-15.0 [facility] Sodium [Moles/volume] in Ser um or PlasmaOrdered By: Gracia Craig 09-12-2024 Sodium [Moles/Vol] Sodium [Moles/volume ] in Serum or Plasma 136-145 [facility] Troponin I High Sensitivityo n 09-12-2024 Troponin I High Sensitivity 24 High 0-15 [facility] Comment on above: Result Comment: The Troponin units of report have been changed to meet the Chest Pain Accreditation requirement, element EC5.M1l2. Troponin units are changed from pg/ml to ng/L. Also, the decimal is removed and results are in whole numbers. PERFORMED BY: [facility] [address] [place] [address] PATHOLOGIST SU[employer]VIS[employer] RO[employer] AKILAH LOMBARDO M.D. Performed By: #### P T, CMP, BNP, HS TROP, CK, CBC ####[facility] [id number] [place] [id number] [facility] Troponin I.cardiac [Mass/vol ume] in Serum or Plasma by Detection limit <= 0.01 ng/Ordered By: Gracia Craig on 09-12-2024 Troponin I.cardiac DL <= 0.01 ng/mL [Mass/Vol] Troponin I.cardiac [Mass/volume] in Serum or Plasma by Detection limit <= 0.01 ng/ High 0-15 [facility] Comment on above: The Troponin units [...] [Mass/volume] in Serum or Plasma High 03-13 [facility] WBC Auto (Bld) [#/Vol]Ordere d By: Gracia Craig on 09-12-2024 WBC (Bld) [#/Vol] Leukocytes [#/volume ] in Blood by Automated count 3.8-11.6 [facility] Alanine aminotransferase [En zymatic activity/volume] in Serum or PlasmaOrdered By: Jazmin العلي on 09-11-2024 ALT [Catalytic activity/Vol] Alanine aminotransferase [Enzymatic activity/volume] in Serum or Plasma [facility] Albumin [Mass/volume] in Ser um or Plasma by Bromocresol green (BCG) dye binding methoOrdered By: Jazmin العلي on 09-11-2024 Albumin BCG dye [Mass/Vol] Albumin [Mass/volume] in Serum or Plasma by Bromocresol green (BCG) dye binding metho 3.5-5.7 [facility] Alkaline phosphatase [Enzyma tic activity/volume] in Serum or PlasmaOrdered By: Jazmin العلي on 09-11-2024 ALP [Catalytic activity/Vol] Alkaline phosphatase [Enzymatic activity/volume] in Serum or Plasma 34-104 [facility] Aspartate aminotransferase [ Enzymatic activity/volume] in Serum or PlasmaOrdered By: Jazmin العلي on 09-11-2024 AST [Catalytic activity/Vol] Aspartate aminotransferase [Enzymatic activity/volume] in Serum or Plasma 13-39 [facility] B-Type Natriuretic Peptideon 09-11-2024 Natriuretic peptide B (Bld) [Mass/Vol] 195.0 pg/mL High 5-100 [facility] Comment on above: Result Comment: PERF ORMED BY: [facility] [address] [place] [address] PATHOLOGIST SUPERVISOR [employer] RO[employer] AKILAH LOMBARDO M.D. Performed By: #### C MP, BNP, CBC ####[facility] Basophils Auto (Bld) [#/Vol] Ordered By: Jazmin العلي on 09-11-2024 Basophils (Bld) [#/Vol] Automated basophil count 0.0-0.2 [facility] Basophils/100 WBC Auto (Bld) Ordered By: Jazmin العلي on 09-11-2024 Basophils/100 WBC (Bld) Automated basophil % . [facility] Bilirubin.total [Mass/volume ] in Serum or PlasmaOrdered By: Jazmin العلي on 09-11-2024 Bilirubin [Mass/Vol] Bilirubin.total [Mass/volume] in Serum or Plasma High 0.3-1.0 [facility] Calcium [Mass/volume] in Ser um or PlasmaOrdered By: Jazmin العلي on 09-11-2024 Calcium [Mass/Vol] Calcium [Mass/volume ] in Serum or Plasma 8.6-10.3 [facility] Carbon dioxide, total [Moles /volume] in Serum or PlasmaOrdered By: Jazmin العلي on 09-11-2024 CO2 [Moles/Vol] Carbon dioxide, tota l [Moles/volume] in Serum or Plasma 21.0-31.0 [facility] Chloride [Moles/volume] in S vaughn or PlasmaOrdered By: Jazmin العلي on 09-11-2024 Chloride [Moles/Vol] Chloride [Moles/vol ume] in Serum or Plasma 98-107 [facility] Complete Blood Count Auto Di ffon 09-11-2024 Basophils (Bld) [#/Vol] 0.1 10*3/uL Normal 0.0-0.2 [facility] Comment on above: Result Comment: PERF ORMED BY: [facility] [address] [place] [address] PATHOLOGIST SUPER[employer] AKILAH LOMBARDO M.D. Performed By: #### C MP, BNP, CBC ####[address] Basophils/100 WBC (Bld) 0.6 % Normal . [facility] Comment on above: Performed By: #### C MP, BNP, CBC ####[address] Eosinophils (Bld) [#/Vol] 0.2 10*3/uL Normal 0.0-0.45 [facility] Comment on above: Performed By: #### C MP, BNP, CBC ####[address] Eosinophils/100 WBC (Bld) 1.9 % Normal . [facility] Comment on above: Performed By: #### C MP, BNP, CBC ####[address] Erythrocyte distribution width (RBC) [Ratio] 15.1 % Normal 11.9-15.3 [facility] Comment on above: Performed By: #### C MP, BNP, CBC ####[address] Hematocrit (Bld) [Volume fraction] 40.2 % Normal 34.0-46.4 [facility] Comment on above: Performed By: #### C MP, BNP, CBC ####[address] Hemoglobin (Bld) [Mass/Vol] 13.5 g/dL Normal 11.8-15.4 [facility] Comment on above: Performed By: #### C MP, BNP, CBC ####[address] Lymphocytes (Bld) [#/Vol] 1.1 10*3/uL Normal 1.00-4.8 [facility] Comment on above: Performed By: #### C MP, BNP, CBC ####[address] Lymphocytes/100 WBC (Bld) 12.0 % Normal . [facility] Comment on above: Performed By: #### C MP, BNP, CBC ####[address] MCH (RBC) [Entitic mass] 30.6 pg Normal 24.7-34.3 [facility] Comment on above: Performed By: #### C MP, BNP, CBC ####[address] MCV (RBC) [Entitic vol] 90.9 fL Normal 80-100 [facility] Comment on above: Performed By: #### C MP, BNP, CBC ####[address] Mean Corpuscular HGB Conc 33.7 g/dL Normal 32.0-35.0 [facility] Comment on above: Performed By: #### C MP, BNP, CBC ####[address] Monocytes (Bld) [#/Vol] 0.7 10*3/uL Normal 0.0-0.8 [facility] Comment on above: Performed By: #### C MP, BNP, CBC ####[address] Monocytes/100 WBC (Bld) 7.6 % Normal . [facility] Comment on above: Performed By: #### C MP, BNP, CBC ####[address] Neutrophils (Bld) [#/Vol] 7.2 10*3/uL Normal 1.8-7.7 [facility] Comment on above: Performed By: #### C MP, BNP, CBC ####[address] Neutrophils/100 WBC (Bld) 77.9 % Normal . [facility] Comment on above: Performed By: #### C MP, BNP, CBC ####[address] NRBC% 0.1 /100{WBC} Normal 0-0.5 [facility] Comment on above: Performed By: #### C MP, BNP, CBC ####[address] Platelet mean volume (Bld) [Entitic vol] 8.4 fL Normal 6.3-10.7 [facility] Comment on above: Performed By: #### C MP, BNP, CBC ####[place] [id number] [facility] Platelets (Bld) [#/Vol] 245 10*3/uL Normal 150-450 [facility] Comment on above: Performed By: #### C MP, BNP, CBC ####[place] [id number] [facility] RBC (Bld) [#/Vol] 4.42 10*6/uL Normal 3.60-5.00 [facility] Comment on above: Performed By: #### C MP, BNP, CBC ####[place] [id number] [facility] WBC (Bld) [#/Vol] 9.2 10*3/uL Normal 3.8-11.6 [facility] Comment on above: Performed By: #### C MP, BNP, CBC ####[place] [id number] [facility] Comprehensive Metabolic Pane violeta 09-11-2024 Albumin [Mass/Vol] 4.2 g/dL Normal 3.5-5.7 [facility] Comment on above: Performed By: #### C MP, BNP, CBC ####[place] [id number] [facility] Albumin/Globulin [Mass ratio] 1.8 {ratio} Normal [facility] Comment on above: Performed By: #### C MP, BNP, CBC ####[place] [id number] [facility] ALP [Catalytic activity/Vol] 78 U/L Normal 34-104 [facility] Comment on above: Result Comment: PERF ORMED BY: [facility] [address] [place] [address] PATHOLOGIST SUPERVIS[employer] AKILAH LOMBARDO M.D. Performed By: #### C MP, BNP, CBC ####[place] [id number] [facility] ALT [Catalytic activity/Vol] 19 U/L Normal 7-52 [facility] Comment on above: Performed By: #### C MP, BNP, CBC ####[place] [id number] [facility] Anion gap [Moles/Vol] 13.5 mmol/L Normal 6.0-15.0 [facility] Comment on above: Performed By: #### C MP, BNP, CBC ####[place] [id number] [facility] AST [Catalytic activity/Vol] 28 U/L Normal 13-39 [facility] Comment on above: Performed By: #### C MP, BNP, CBC ####[place] [id number] [facility] Bilirubin [Mass/Vol] 1.2 mg/dL High 0.3-1.0 [facility] Comment on above: Performed By: #### C MP, BNP, CBC ####[address] Calcium [Mass/Vol] 9.8 mg/dL Normal 8.6-10.3 [facility] Comment on above: Performed By: #### C MP, BNP, CBC ####[address] Chloride [Moles/Vol] 103 mmol/L Normal 98-107 [facility] Comment on above: Performed By: #### C MP, BNP, CBC ####[address] CO2 [Moles/Vol] 29.3 mmol/L Normal 21.0-31.0 [facility] Comment on above: Performed By: #### C MP, BNP, CBC ####[address] Creatinine [Mass/Vol] 1.39 mg/dL High 0.60-1.20 [facility] Comment on above: Performed By: #### C MP, BNP, CBC ####[address] Estimated GFR 38.123 mL/Min Normal [facility] Comment on above: Performed By: #### C MP, BNP, CBC ####[address] Globulin (S) [Mass/Vol] 2.4 g/dL Normal [facility] Comment on above: Performed By: #### C MP, BNP, CBC ####[address] Glucose [Mass/Vol] 111 mg/dL High 70-100 [facility] Comment on above: Result Comment: [facility] Glucose Reference Range is dependent on time and content of last meal. Glucose of more than 200 mg/dL in a nonstressed, ambulatory subject supports the diagnosis of Diabetes Mellitus. ADA recommended reference range Performed By: #### C MP, BNP, CBC ####[address] Potassium [Moles/Vol] 3.8 mmol/L Normal 3.5-5.1 [facility] Comment on above: Performed By: #### C MP, BNP, CBC ####[facility] [id number] Protein [Mass/Vol] 6.6 g/dL Normal 6.4-8.9 [facility] Comment on above: Performed By: #### C MP, BNP, CBC ####[facility] [id number] Sodium [Moles/Vol] 142 mmol/L Normal 136-145 [facility] Comment on above: Performed By: #### C MP, BNP, CBC ####[facility] [id number] Urea nitrogen [Mass/Vol] 29 mg/dL High 7-25 [facility] Comment on above: Performed By: #### C MP, BNP, CBC ####[facility] [id number] Creatinine [Mass/volume] in Serum or PlasmaOrdered By: Jazmin العلي on 09-11-2024 Creatinine [Mass/Vol] Creatinine [Mass/v olume] in Serum or Plasma High 0.60-1.20 [facility] Eosinophils Auto (Bld) [#/Vo l]Ordered By: Jazmin العلي on 09-11-2024 Eosinophils (Bld) [#/Vol] Automated eosinophil count 0.0-0.45 [facility] Eosinophils/100 WBC Auto (Bl d)Ordered By: Jazmin العلي on 09-11-2024 Eosinophils/100 WBC (Bld) Automated eosinophil % . [facility] Erythrocyte distribution wid th Auto (RBC) [Ratio]Ordered By: Jazmin العلي on 09-11-2024 Erythrocyte distribution width (RBC) [Ratio] Erythrocyte distribution width [Ratio] by Automated count 11.9-15.3 [facility] Globulin Calc (S) [Mass/Vol] Ordered By: Jazmin العلي on 09-11-2024 Globulin (S) [Mass/Vol] Serum globulin measurement by calculation (mass/volume) [facility] Glucose [Mass/volume] in Ser um or PlasmaOrdered By: Jazmin العلي on 09-11-2024 Glucose [Mass/Vol] Glucose [Mass/volume ] in Serum or Plasma High 70-100 [facility] Comment on above: ADA recommended refe rence rangeRandom Glucose Reference Range is dependent on time and content of last meal. Glucose of more than 200 mg/dL in a nonstressed, ambulatory subject supports the diagnosis of Diabetes Mellitus. Hematocrit Auto (Bld) [Volum e fraction]Ordered By: Jazmin العلي on 09-11-2024 Hematocrit (Bld) [Volume fraction] Hematocrit [Volume Fraction] of Blood by Automated count 34.0-46.4 [facility] Hemoglobin [Mass/volume] in BloodOrdered By: Jazmin العلي on 09-11-2024 Hemoglobin (Bld) [Mass/Vol] Hemoglobin [Mass/volume] in Blood 11.8-15.4 [facility] Leukocytes [#/volume] correc anne marie for nucleated erythrocytes in Blood by Automated counOrdered By: Jazmin العلي on 09-11-2024 WBC corrected for nucl RBC Auto (Bld) [#/Vol] Leukocytes [#/volume] corrected for nucleated erythrocytes in Blood by Automated coun 3.8-11.6 [facility] Lymphocytes Auto (Bld) [#/Vo l]Ordered By: Jazmin العلي on 09-11-2024 Lymphocytes (Bld) [#/Vol] Lymphocytes [#/volume] in Blood by Automated count 1.00-4.8 [facility] Lymphocytes/100 WBC Auto (Bl d)Ordered By: Jazmin العلي on 09-11-2024 Lymphocytes/100 WBC (Bld) Lymphocytes/100 leukocytes in Blood by Automated count . [facility] MCH Auto (RBC) [Entitic mass ]Ordered By: Jazmin العلي on 09-11-2024 MCH (RBC) [Entitic mass] MCH [Entitic mass] by Automated count 24.7-34.3 [facility] MCHC Auto (RBC) [Mass/Vol]Or dered By: Jazmin العلي on 09-11-2024 MCHC (RBC) [Mass/Vol] MCHC [Mass/volume] by Automated count 32.0-35.0 [facility] MCV Auto (RBC) [Entitic vol] Ordered By: Jazmin العلي on 09-11-2024 MCV (RBC) [Entitic vol] MCV [Entitic volume] by Automated count 80-100 [facility] Monocytes Auto (Bld) [#/Vol] Ordered By: Jazmin العلي on 09-11-2024 Monocytes (Bld) [#/Vol] Automated blood monocyte count 0.0-0.8 [facility] Monocytes/100 WBC Auto (Bld) Ordered By: Jazmin العلي on 09-11-2024 Monocytes/100 WBC (Bld) Automated monocyte % . [facility] Natriuretic peptide B [Mass/ Vol]Ordered By: Jazmin العلي on 09-11-2024 Natriuretic peptide B (Bld) [Mass/Vol] BNP ser/plas High 5-100 [facility] Neutrophils Auto (Bld) [#/Vo l]Ordered By: Jazmin العلي on 09-11-2024 Neutrophils (Bld) [#/Vol] Neutrophils [#/volume] in Blood by Automated count 1.8-7.7 [facility] Neutrophils/100 WBC Auto (Bl d)Ordered By: Jazmin العلي on 09-11-2024 Neutrophils/100 WBC (Bld) Automated neutrophil % . [facility] No Panel InformationOrdered By: Jazmin العلي on 09-11-2024 Estimated GFR (CKD-EPI) 38.123 mL/Min [facility] Creatinine Clearance (Chem N/A [facility] Nucleated erythrocytes [Pres ence] in Blood by Automated countOrdered By: Jazmin العلي on 09-11-2024 Nucleated RBC Auto Ql (Bld) Nucleated erythrocytes [Presence] in Blood by Automated count 0-0.5 [facility] Platelet mean volume Auto (B ld) [Entitic vol]Ordered By: Jazmin العلي on 09-11-2024 Platelet mean volume (Bld) [Entitic vol] Platelet mean volume [Entitic volume] in Blood by Automated count 6.3-10.7 [facility] Platelets Auto (Bld) [#/Vol] Ordered By: Jazmin العلي on 09-11-2024 Platelets (Bld) [#/Vol] Platelets [#/volume] in Blood by Automated count 150-450 [facility] Potassium [Moles/volume] in Serum or PlasmaOrdered By: Jazmin العلي on 09-11-2024 Potassium [Moles/Vol] Potassium [Moles/v olume] in Serum or Plasma 3.5-5.1 [facility] Protein [Mass/volume] in Ser um or PlasmaOrdered By: Jazmin العلي on 09-11-2024 Protein [Mass/Vol] Protein [Mass/volume ] in Serum or Plasma 6.4-8.9 [facility] RBC Auto (Bld) [#/Vol]Ordere d By: Jazmin العلي on 09-11-2024 RBC (Bld) [#/Vol] Erythrocytes [#/volu me] in Blood by Automated count 3.60-5.00 [facility] Serum or plasma albumin/glob ulin mass ratioOrdered By: Jazmin العلي on 09-11-2024 Albumin/Globulin [Mass ratio] Serum or plasma albumin/globulin mass ratio [facility] Serum or plasma anion gap de terminationOrdered By: Jazmin العلي on 09-11-2024 Anion gap [Moles/Vol] Serum or plasma an ion gap determination 6.0-15.0 [facility] Sodium [Moles/volume] in Ser um or PlasmaOrdered By: Jazmin العلي on 09-11-2024 Sodium [Moles/Vol] Sodium [Moles/volume ] in Serum or Plasma 136-145 [facility] Urea nitrogen [Mass/volume] in Serum or PlasmaOrdered By: Jazmin العلي on 09-11-2024 Urea nitrogen [Mass/Vol] Urea nitrogen [Mass/volume] in Serum or Plasma High 7-25 [facility] WBC Auto (Bld) [#/Vol]Ordere d By: Jazmin العلي on 09-11-2024 WBC (Bld) [#/Vol] Leukocytes [#/volume ] in Blood by Automated count 3.8-11.6 [facility] X-ray reportOrdered By: Juan Diego Carson on 09-11-2024 Study report [facility] [place] [address] XRay Report Signed Patient: Austin Golden MR#: [id number] : 1940 Acct:[id number] Age/Sex: 83 / F ADM Date: 5 Loc: XD Room: Type: [facility] CLI Attending Dr: Jazmin العلي DO Copies to: [...] Carson Jr., D.O.09/11/2024 3:37 PM Dictation Location: [place] [address] Transcribed By: [facility] 09/11/24 1537 Dictated By: Nnamdi Carson Jr, DO 09/11/24 1536 Signed By: 09/11/24 1537 [facility] XR ribs RT min 3V w CXR1V*on 09-11-2024 XR ribs RT min 3V w CXR1V* [facility] [address] [place] [address] [place] [address] XRay Report Signed Patient: Austin Golden MR#: [id number] 8 : 1940 Acct:[id number] Age/Sex: 83 / F ADM Date: 09/11/24 Loc: XD Room: Type: [facility] Attending Dr: Jazmin العلي DO Copies to: [...] Carson Jr., D.O.09/11/2024 3:37 PM Dictation Location: [facility]- Transcribed By: [facility] 09/11/24 1537 Dictated By: Nnamdi Carson Jr, DO 09/11/24 1536 Signed By: 09/11/24 1537 Normal [facility] Influenza virus B Ag [Presen ce] in Upper respiratory specimen by Rapid immunoassayon 09-09-2024 FLUBV Ag IA.rapid Ql (Nph) Influenza virus B Ag [Presence] in Upper respiratory specimen by Rapid immunoassay [facility] No Panel Informationon 09-09 Influenza Type A (Rapid) Negative [facility] POC SARS CoV-2 Antigen Negative [facility] ECG 12 Leadon 09-05-2024 Atrial flutter with heart rate of [address]-T changes and intraventricular conduction delay [facility] Work Phone: X-ray reportOrdered By: Jadiel Borja on 09-05-2024 Study report [facility] [place] [address] XRay Report Signed Patient: Austin Golden MR#: [id number] : 1940 Acct:[id number] Age/Sex: 83 / F ADM Date: 5 Loc: XD Room: Type: [facility] Attending Dr: Yesica Astudillo MD Copies to: Yesica Astudillo MD~ Ordering Provider: Yesica Astudillo MD Date of Service: 09/05/24 XR/XR thoracic spine 2V: PAIN ([id number]) XR/XR cervical spine 5V*: PAIN 5 views [...] Juanito Borja M.D.09/05/2024 4:55 PM Dictation Location: [facility]--[facility] Transcribed By: [facility] 09/05/241654 Dictated By: Juanito Borja DO 09/05/241650 Signed By: 09/05/241654 [facility] XR thoracic spine 2Von 09-05 XR thoracic spine 2V [facility] [address] [place] [address] [place] [address] XRay Report Signed Patient: Austin Golden MR#: [id number] 8 : 1940 Acct:[id number] Age/Sex: 83 / F ADM Date: 09/05/24 Loc: XD Room: Type: [facility] Attending Dr: Yesica Astudillo MD Copies to: Yesica Astudillo MD Ordering Provider: Yesica Astudillo MD Date of Service: 09/05/24 XR/XR thoracic spine 2V: PAIN ([id number]) XR/XR cervical spine 5V*: PAIN 5 views [...] Juanito Borja M.D.09/05/2024 4:55 PM Dictation Location: [facility]--20 Transcribed By: [facility] 09/05/241654 Dictated By: Juanito Borja DO 09/05/241650 Signed By: 09/05/241654 Normal [facility] Progress Noteson 08-18-2024 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 Message Text Documentation: Mode: Telephone Patient Patient Work Phone: Patient Cell Preferred phone: [phone] Consent: I confirmed patient understanding of the [...] Yung MD Division of Gastroenterology AND Hepatology [facility] 08/18/24, 5:01 PM Normal [facility] [employer] [facility] Telephone Encounteron 2023 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 Message Text Situation: Call back Background: Pt would like to have a phone appointment with her doctor. Assessment: Please Advise Recommendation: Pt can be reached at Phone numbers Normal [facility] 07-29-2024 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 Message Text This encounter was opened in error. Patient was a No-Show (she was admitted to hospital at time of this appt). Please disregard. Normal [facility] [employer] [facility] Telephone Encounteron 2023 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 Message Text Pt calling to reschedule the Televisit with Dr. Katie Yung that she missed on 07/22/2024 and the tree is not providing the option of televisits. Pt states that she was in the hospital for heart issues. Please return Pt's call at: . Thank you Normal [facility] [employer] [facility] Basic Metabolic Panelon Anion gap [Moles/Vol] 10.8 mmol/L Normal 6.0-15.0 [facility] Comment on above: Performed By: #### B MP, MG ####[address] Calcium [Mass/Vol] 8.6 mg/dL Normal 8.6-10.3 [facility] Comment on above: Performed By: #### B MP, MG ####[address] Chloride [Moles/Vol] 106 mmol/L Normal 98-107 [facility] Comment on above: Performed By: #### B MP, MG ####[address] CO2 [Moles/Vol] 29.0 mmol/L Normal 21.0-31.0 [facility] Comment on above: Performed By: #### B MP, MG ####[place] [id number] [facility] Creatinine [Mass/Vol] 1.25 mg/dL High 0.60-1.20 [facility] Comment on above: Performed By: #### B MP, MG ####[place] [id number] [facility] Creatinine Clr Calc Pharmacy 30.08 Normal [facility] Comment on above: Performed By: #### B MP, MG ####[place] [id number] [facility] Estimated GFR 43.302 mL/Min Normal [facility] Comment on above: Performed By: #### B MP, MG ####[place] [id number] Glucose [Mass/Vol] 102 mg/dL High 70-100 [facility] Comment on above: Result Comment: [facility] Glucose Reference Range is dependent on time and content of last meal. Glucose of more than 200 mg/dL in a nonstressed, ambulatory subject supports the diagnosis of Diabetes Mellitus. ADA recommended reference range Performed By: #### B MP, MG ####[place] [id number] [place] [id number] [facility] Potassium [Moles/Vol] 3.8 mmol/L Normal 3.5-5.1 [facility] Comment on above: Performed By: #### B MP, MG ####[address] Sodium [Moles/Vol] 142 mmol/L Normal 136-145 [facility] Comment on above: Performed By: #### B MP, MG ####[place] [id number] [facility] Urea nitrogen [Mass/Vol] 18 mg/dL Normal 7-25 [facility] Comment on above: Performed By: #### B MP, MG ####[place] [id number] [facility] Calcium [Mass/volume] in Ser um or PlasmaOrdered By: Fahad Kim on 07-24-2024 Calcium [Mass/Vol] Calcium [Mass/volume ] in Serum or Plasma 8.6-10.3 [facility] Carbon dioxide, total [Moles /volume] in Serum or PlasmaOrdered By: Fahad Kim on 07-24-2024 CO2 [Moles/Vol] Carbon dioxide, tota l [Moles/volume] in Serum or Plasma 21.0-31.0 [facility] Chloride [Moles/volume] in S vaughn or PlasmaOrdered By: Fahad Kim on 07-24-2024 Chloride [Moles/Vol] Chloride [Moles/vol ume] in Serum or Plasma 98-107 [facility] Creatinine [Mass/volume] in Serum or PlasmaOrdered By: Fahad Kim on 07-24-2024 Creatinine [Mass/Vol] Creatinine [Mass/v olume] in Serum or Plasma High 0.60-1.20 [facility] Glucose [Mass/volume] in Ser um or PlasmaOrdered By: Fahad Kim on 07-24-2024 Glucose [Mass/Vol] Glucose [Mass/volume ] in Serum or Plasma High 70-100 [facility] Comment on above: ADA recommended refe rence rangeRandom Glucose Reference Range is dependent on time and content of last meal. Glucose of more than 200 mg/dL in a nonstressed, ambulatory subject supports the diagnosis of Diabetes Mellitus. Magnesiumon 07-24-2024 Magnesium [Mass/Vol] 1.9 mg/dL Normal 1.9-2.7 [facility] Comment on above: Result Comment: PERF ORMED BY: [facility] [address] [place] [address] PATHOLOGIST SUPERVISOR [employer]SEM[employer] ROOM AKILAH LOMBARDO M.D. Performed By: #### B MP, MG ####[facility] [id number] [place] [address] [facility] Magnesium [Mass/volume] in S vaughn or PlasmaOrdered By: Fahad Kim on 07-24-2024 Magnesium [Mass/Vol] Magnesium [Mass/vol ume] in Serum or Plasma 1.9-2.7 [facility] No Panel InformationOrdered By: Fahad Kim on 07-24-2024 Estimated GFR (CKD-EPI) 43.302 mL/Min [facility] Creatinine Clearance (Chem 30.08 [facility] Potassium [Moles/volume] in Serum or PlasmaOrdered By: Fahad Kim on 07-24-2024 Potassium [Moles/Vol] Potassium [Moles/v olume] in Serum or Plasma 3.5-5.1 [facility] Serum or plasma anion gap de terminationOrdered By: Fahad Kim on 07-24-2024 Anion gap [Moles/Vol] Serum or plasma an ion gap determination 6.0-15.0 [facility] Sodium [Moles/volume] in Ser um or PlasmaOrdered By: Fahad Kim on 07-24-2024 Sodium [Moles/Vol] Sodium [Moles/volume ] in Serum or Plasma 136-145 [facility] Urea nitrogen [Mass/volume] in Serum or PlasmaOrdered By: Fahad Kim on 07-24-2024 Urea nitrogen [Mass/Vol] Urea nitrogen [Mass/volume] in Serum or Plasma 7-25 [facility] Basic Metabolic Panelon 12-0 Anion gap [Moles/Vol] 11.2 mmol/L Normal 6.0-15.0 [facility] Comment on above: Performed By: #### Elvira G, BMP ####[address] Calcium [Mass/Vol] 8.7 mg/dL Normal 8.6-10.3 [facility] [facility] Comment on above: Performed By: #### [facility], BMP ####[address] Chloride [Moles/Vol] 104 mmol/L Normal 98-107 [facility] Comment on above: Performed By: #### G, BMP ####[place] [id number] [facility] CO2 [Moles/Vol] 28.7 mmol/L Normal 21.0-31.0 [facility] Comment on above: Performed By: #### G, BMP ####[place] [id number] [facility] Creatinine [Mass/Vol] 1.26 mg/dL High 0.60-1.20 [facility] Comment on above: Performed By: #### M G, BMP ####[place] [id number] [facility] Creatinine Clr Calc Pharmacy 29.57 Normal [facility] Comment on above: Performed By: #### G, BMP ####[place] [id number] [facility] Estimated GFR 42.890 mL/Min Normal [facility] Comment on above: Performed By: #### M G, BMP ####[place] [id number] [place] [id number] [facility] Glucose [Mass/Vol] 92 mg/dL Normal 70-100 [facility] Comment on above: Result Comment: [facility] Glucose Reference Range is dependent on time and content of last meal. Glucose of more than 200 mg/dL in a nonstressed, ambulatory subject supports the diagnosis of Diabetes Mellitus. ADA recommended reference range Performed By: #### Elvira Joseph, BMP ####[place] [id number] [place] [id number] [facility] Potassium [Moles/Vol] 3.9 mmol/L Normal 3.5-5.1 [facility] Comment on above: Performed By: #### Elvira Joseph, BMP ####[place] [id number] [place] [id number] [facility] Sodium [Moles/Vol] 140 mmol/L Normal 136-145 [facility] Comment on above: Performed By: #### Elvira Joseph, BMP ####[place] [id number] [place] [id number] [facility] Urea nitrogen [Mass/Vol] 19 mg/dL Normal 7-25 [facility] Comment on above: Performed By: #### Elvira Joseph, BMP ####[place] [id number] [facility] Magnesiumon 07-23-2024 Magnesium [Mass/Vol] 1.9 mg/dL Normal 1.9-2.7 [facility] Comment on above: Result Comment: PERF ORMED BY: [facility] [address] [place] [id number] PATHOLOGIST SUPERVISOR [employer] ROOM AKILAH LOMBARDO M.D. Performed By: #### Elvira Joseph, BMP ####[place] [id number] [place] [id number] [facility] Alanine aminotransferase [En zymatic activity/volume] in Serum or PlasmaOrdered By: Aroldo Peña on 07-22-2024 ALT [Catalytic activity/Vol] Alanine aminotransferase [Enzymatic activity/volume] in Serum or Plasma [facility] Albumin [Mass/volume] in Ser um or Plasma by Bromocresol green (BCG) dye binding methoOrdered By: Aroldo Peña on 07-22-2024 Albumin BCG dye [Mass/Vol] Albumin [Mass/volume] in Serum or Plasma by Bromocresol green (BCG) dye binding metho Low 3.5-5.7 [facility] Alkaline phosphatase [Enzyma tic activity/volume] in Serum or PlasmaOrdered By: Aroldo Peña on 07-22-2024 ALP [Catalytic activity/Vol] Alkaline phosphatase [Enzymatic activity/volume] in Serum or Plasma 34-104 [facility] Aspartate aminotransferase [ Enzymatic activity/volume] in Serum or PlasmaOrdered By: Aroldo Peña on 07-22-2024 AST [Catalytic activity/Vol] Aspartate aminotransferase [Enzymatic activity/volume] in Serum or Plasma High 13-39 [facility] Bilirubin.total [Mass/volume ] in Serum or PlasmaOrdered By: Aroldo Peña on 07-22-2024 Bilirubin [Mass/Vol] Bilirubin.total [Mass/volume] in Serum or Plasma 0.3-1.0 [facility] Comprehensive Metabolic Pane violeta 07-22-2024 Albumin [Mass/Vol] 3.2 g/dL Low 3.5-5.7 [facility] Comment on above: Performed By: #### C MP ####[address] Albumin/Globulin [Mass ratio] 2.0 {ratio} Normal [facility] Comment on above: Performed By: #### C MP ####[address] [address] [facility] ALP [Catalytic activity/Vol] 48 U/L Normal 34-104 [facility] Comment on above: Performed By: #### C MP ####[address] [address] [facility] ALT [Catalytic activity/Vol] 28 U/L Normal 7-52 [facility] Comment on above: Performed By: #### C MP ####[place] [id number] [facility] Anion gap [Moles/Vol] 11.0 mmol/L Normal 6.0-15.[address] [facility] Comment on above: Performed By: #### C MP ####[address] AST [Catalytic activity/Vol] 40 U/L High 13-39 [facility] Comment on above: Performed By: #### C MP ####[address] Bilirubin [Mass/Vol] 0.6 mg/dL Normal 0.3-1.0 [facility] Comment on above: Performed By: #### C MP ####[address] Calcium [Mass/Vol] 8.6 mg/dL Normal 8.6-10.3 [facility] Comment on above: Performed By: #### C MP ####[address] Chloride [Moles/Vol] 105 mmol/L Normal 98-107 [facility] Comment on above: Performed By: #### C MP ####[address] CO2 [Moles/Vol] 28.7 mmol/L Normal 21.0-31.0 [facility] Comment on above: Performed By: #### C MP ####[address] Creatinine [Mass/Vol] 1.20 mg/dL Normal 0.60-1.20 [facility] Comment on above: Performed By: #### C MP ####[address] Creatinine Clr Calc Pharmacy 31.05 Normal [facility] Comment on above: Result Comment: PERF ORMED BY: [facility] [address] [place] [address] PATHOLOGIST SUPERVISOR [employer] ROOM AKILAH LOMBARDO M.D. Performed By: #### C MP ####[address] Estimated GFR 45.476 mL/Min Normal [facility] Comment on above: Performed By: #### C MP ####[address] Globulin (S) [Mass/Vol] 1.6 g/dL Normal [facility] Comment on above: Performed By: #### C MP ####[address] Glucose [Mass/Vol] 90 mg/dL Normal 70-100 [facility] Comment on above: Result Comment: [facility] Glucose Reference Range is dependent on time and content of last meal. Glucose of more than 200 mg/dL in a nonstressed, ambulatory subject supports the diagnosis of Diabetes Mellitus. ADA recommended reference range Performed By: #### C MP ####[address] Potassium [Moles/Vol] 3.7 mmol/L Normal 3.5-5.1 [facility] Comment on above: Performed By: #### C MP ####[address] Protein [Mass/Vol] 4.8 g/dL Low 6.4-8.9 [facility] Comment on above: Performed By: #### C MP ####[address] Sodium [Moles/Vol] 141 mmol/L Normal 136-145 [facility] Comment on above: Performed By: #### C MP ####[address] Urea nitrogen [Mass/Vol] 17 mg/dL Normal 7-25 [facility] Comment on above: Performed By: #### C MP ####[place] [id number] [facility] Globulin Calc (S) [Mass/Vol] Ordered By: Aroldo Peña on 07-22-2024 Globulin (S) [Mass/Vol] Serum globulin measurement by calculation (mass/volume) [facility] Protein [Mass/volume] in Ser um or PlasmaOrdered By: Aroldo Peña on 07-22-2024 Protein [Mass/Vol] Protein [Mass/volume ] in Serum or Plasma Low 6.4-8.9 [facility] Serum or plasma albumin/glob ulin mass ratioOrdered By: Aroldo Peña on 07-22-2024 Albumin/Globulin [Mass ratio] Serum or plasma albumin/globulin mass ratio [facility] Troponin I High Sensitivityo n 07-22-2024 Troponin I High Sensitivity 54.4 pg/mL Off scale high 0.0-15.0 [facility] Comment on above: Result Comment: Crit ical Result : Called to and read back by: PAYTON CESPEDES at: 07/22/2024 05:09:56 by:[id number] PERFORMED BY: [facility] [address] [place] [id number] PATHOLOGIST SUPERVISOR [employer] ROOM AKILAH LOMBARDO M.D. Performed By: #### H S TROP ####[address] [address] [facility] Troponin I.cardiac [Mass/vol ume] in Serum or Plasma by Detection limit <= 0.01 ng/Ordered By: Aroldo Peña on 07-22-2024 Troponin I.cardiac DL <= 0.01 ng/mL [Mass/Vol] Troponin I.cardiac [Mass/volume] in Serum or Plasma by Detection limit <= 0.01 ng/ Critically high 0.0-15.0 [facility] Comment on above: Critical Result : Ca lled to and read back by: PAYTON CESPEDES at: 07/22/2024 05:09:56 by:[id number] Basic Metabolic Panelon 12-0 Anion gap [Moles/Vol] 11.0 mmol/L Normal 6.0-15.0 Th e [facility] Comment on above: Performed By: #### B MP, HS TROP ####[place] [id number] [place] [address] [facility] Calcium [Mass/Vol] 8.8 mg/dL Normal 8.6-10.3 [facility] Comment on above: Performed By: #### B MP, HS TROP ####[place] [address] [place] [address] [place] Chloride [Moles/Vol] 104 mmol/L Normal 98-107 [facility] Comment on above: Performed By: #### B MP, HS TROP ####[facility] [id number] [place] [address] [place] CO2 [Moles/Vol] 28.5 mmol/L Normal 21.0-31.0 [facility] Comment on above: Performed By: #### B MP, HS TROP ####[facility] [place] [address] [facility] Creatinine [Mass/Vol] 1.27 mg/dL High 0.60-1.20 [facility] Comment on above: Performed By: #### B MP, HS TROP ####[place] [address] [place] [address] [place] Creatinine Clr Calc Pharmacy 29.34 Normal [facility] Comment on above: Result Comment: PERF ORMED BY: [facility] [address] [facility] [place] [address] PATHOLOGIST SUPERVISOR [employer]SEM[employer] ROOM AKILAH LOMBARDO M.D. Performed By: #### B MP, HS TROP ####[address] [address] [facility] Estimated GFR 42.486 mL/Min Normal [facility] Comment on above: Performed By: #### B MP, HS TROP ####[facility] [place] [id number] [facility] Glucose [Mass/Vol] 114 mg/dL High 70-100 [facility] Comment on above: Result Comment: [facility] Glucose Reference Range is dependent on time and content of last meal. Glucose of more than 200 mg/dL in a nonstressed, ambulatory subject supports the diagnosis of Diabetes Mellitus. ADA recommended reference range Performed By: #### B MP, HS TROP ####[facility] [place] [id number] [place] Potassium [Moles/Vol] 3.5 mmol/L Normal 3.5-5.1 [facility] Comment on above: Performed By: #### B MP, HS TROP ####[facility] [place] [address] [place] Sodium [Moles/Vol] 140 mmol/L Normal 136-145 [facility] Comment on above: Performed By: #### B MP, HS TROP ####[facility] [id number] Urea nitrogen [Mass/Vol] 18 mg/dL Normal 7-25 [facility] Comment on above: Performed By: #### B MP, HS TROP ####[facility] [id number] Basophils Auto (Bld) [#/Vol] on 07-21-2024 Basophils (Bld) [#/Vol] Automated basophil count 0.0-0.1 [facility] Basophils/100 WBC Auto (Bld) on 07-21-2024 Basophils/100 WBC (Bld) Automated basophil % 0.2-2.0 [facility] ECG 12 lead ECGon 07-21-2024 ECG 12 lead ECG [facility] [place] [address] Electrocardiograph Report Signed Patient: Austin Golden MR#: [id number] 8 : 1940 Acct:[id number] Age/Sex: 83 / F ADM Date: 07/21/24 Loc: Room: [address] [place] [address] Type: ADM IN Attending Dr: Fahad Kim [...] Electronic atrial pacemaker Confirmed by Vipin Awad ([id number]) on 07/22/2024 6:59:31 PM Referred By: Electronically Signed By: Vipin Awad Transcribed By: MUS Signed By Vipin Awad MD 07/22/24 1859 Normal [facility] Eosinophils/100 WBC Auto (Bl d)on 07-21-2024 Eosinophils/100 WBC (Bld) Automated eosinophil % 0.9-7.0 [facility] Erythrocyte distribution wid th Auto (RBC) [Ratio]on 07-21-2024 Erythrocyte distribution width (RBC) [Ratio] Erythrocyte distribution width [Ratio] by Automated count 11.0-15.0 [facility] Estimated glomerular filtrat ion rate (GFR) non- Americanon 07-21-2024 GFR/1.73 sq M.predicted among non-blacks MDRD (S/P/Bld) [Vol rate/Area] Estimated glomerular filtration rate (GFR) non- Low >=60 mL/min/1.7 3m 2 [facility] Globulin Calc (S) [Mass/Vol] on 07-21-2024 Globulin (S) [Mass/Vol] Serum globulin measurement by calculation (mass/volume) [facility] Hematocrit Auto (Bld) [Volum e fraction]on 07-21-2024 Hematocrit (Bld) [Volume fraction] Hematocrit [Volume Fraction] of Blood by Automated count 36.0-48.0 [facility] Hemoglobin [Mass/volume] in Bloodon 07-21-2024 Hemoglobin (Bld) [Mass/Vol] Hemoglobin [Mass/volume] in Blood 12.0-16.0 [facility] INR in Platelet poor plasma by Coagulation assayOrdered By: Aroldo Peña on 07-21-2024 INR Coag (PPP) [Relative time] INR in Platelet poor plasma by Coagulation assay [facility] Comment on above: INR Therapeutic Rang [...] 07-21-2024 Albumin [Mass/Vol] 3.3 g/dL Low 3.4-5.0 [facility] ALP [Catalytic activity/Vol] 73 U/L 46-116 [facility] ALT [Catalytic activity/Vol] 45 U/L 14-59 [facility] Amylase [Catalytic activity/Vol] 21 U/L Low 25-115 [facility] AST [Catalytic activity/Vol] 40 U/L High 15-37 [facility] Bilirubin [Mass/Vol] 0.8 mg/dL 0.2-1.0 [facility] Bilirubin.direct [Mass/Vol] 0.3 mg/dL High 0.0-0.2 [facility] Calcium [Mass/Vol] 10.1 mg/dL 8.5-10.1 [facility] Chloride [Moles/Vol] 103 mmol/L 98-107 [facility] CO2 [Moles/Vol] 25.6 mmol/L 21.0-32.0 [facility] Creatinine [Mass/Vol] 1.65 mg/dL High 0.55-1.02 [facility] GFR/1.73 sq M.predicted MDRD (S/P/Bld) [Vol rate/Area] 36 mL/min/{1.73_m2} Low >=60 mL/min/1.7 3m 2 [facility] Glucose [Mass/Vol] 106 mg/dL 74-106 [facility] Lipase [Catalytic activity/Vol] 23.0 U/L 16.0-77.0 [facility] Potassium [Moles/Vol] 3.9 mmol/L 3.5-5.1 [facility] Protein [Mass/Vol] 6.6 g/dL 6.4-8.2 [facility] Sodium [Moles/Vol] 142 mmol/L 136-145 [facility] Urea nitrogen [Mass/Vol] 18.0 mg/dL 7.0-18.0 [facility] Urea nitrogen/Creatinine [Mass ratio] 10.9 mg/mg [facility] Laboratory - Hematology and Cell countson 07-21-2024 Immature granulocytes/100 WBC (Bld) 0.3 % 0.0-0.5 [facility] Leukocytes [#/volume] correc anne marie for nucleated erythrocytes in Blood by Automated counon 07-21-2024 WBC corrected for nucl RBC Auto (Bld) [#/Vol] Leukocytes [#/volume] corrected for nucleated erythrocytes in Blood by Automated coun High 4.0-11.0 [facility] Lymphocytes Auto (Bld) [#/Vo l]on 07-21-2024 Lymphocytes (Bld) [#/Vol] Lymphocytes [#/volume] in Blood by Automated count 1.2-3.8 [facility] Lymphocytes/100 WBC Auto (Bl d)on 07-21-2024 Lymphocytes/100 WBC (Bld) Lymphocytes/100 leukocytes in Blood by Automated count Low 20.5-60.0 [facility] MCH Auto (RBC) [Entitic mass ]on 07-21-2024 MCH (RBC) [Entitic mass] MCH [Entitic mass] by Automated count 26.7-34.0 [facility] MCHC Auto (RBC) [Mass/Vol]on 07-21-2024 MCHC (RBC) [Mass/Vol] MCHC [Mass/volume] by Automated count 29.9-35.2 [facility] MCV Auto (RBC) [Entitic vol] on 07-21-2024 MCV (RBC) [Entitic vol] MCV [Entitic volume] by Automated count 81.0-99.0 [facility] Magnesiumon 07-21-2024 Magnesium [Mass/Vol] 2.0 mg/dL Normal 1.9-2.7 [facility] Comment on above: Result Comment: PERF ORMED BY: [facility] [address] [place] [address] PATHOLOGIST SUPERVISOR [employer]SEMBL[employer] ROOM AKILAH LOMBARDO M.D. Performed By: #### M Jake, PT ####[facility] [id number] [place] [address] [facility] Monocytes Auto (Bld) [#/Vol] on 07-21-2024 Monocytes (Bld) [#/Vol] Automated blood monocyte count 0.3-0.8 [facility] Monocytes/100 WBC Auto (Bld) on 07-21-2024 Monocytes/100 WBC (Bld) Automated monocyte % 1.7-12.0 [facility] Neutrophils Auto (Bld) [#/Vo l]on 07-21-2024 Neutrophils (Bld) [#/Vol] Neutrophils [#/volume] in Blood by Automated count High 1.4-6.5 [facility] Neutrophils/100 WBC Auto (Bl d)on 07-21-2024 Neutrophils/100 WBC (Bld) Automated neutrophil % High 43.0-75.0 [facility] No Panel Informationon 07-21 Eosinophils # (Auto) 0.2 10 3/uL 0.0-0.7 [facility] Immature Granulocyte # (Auto) 0.04 10 3/uL High 0.00-0.03 [facility] Troponin I High Sensitivity 299.5 pg/mL Critically high 4.0-51.3 [facility] Comment on above: RESULTS CALLED TO ANGE DAWKINS)/ERCUT-OFF POINTS HAVE BEEN ESTABLISHED BASED ON [...] volume] in Blood by Automated count 9.5-13.5 [facility] Platelets Auto (Bld) [#/Vol] on 07-21-2024 Platelets (Bld) [#/Vol] Platelets [#/volume] in Blood by Automated count 150-450 [facility] Prothrombin Time INRon 07-21 INR Coag (PPP) [Relative time] 1.3 {INR} Normal [facility] Comment on above: Result Comment: [...] heart valves: 3 - 4.5 PERFORMED BY: [facility] [address] [place] [address] PATHOLOGIST SUPERVISOR [employer]SEMBL[employer] ROOM AKILAH LOMBARDO M.D. Performed By: #### M G, PT ####[facility] [id number] [place] [address] [facility] PT Coag (PPP) [Time] 14.6 s High 9.0-12.9 [facility] Comment on above: Result Comment: A he matocrit value greater than 55% may lead to inaccurate results in coagulation testing. Patients having hematocrit values >55% require a special collection tube for coagulation studies. Please contact the laboratory at [phone] for redraw instructions. Performed By: #### M G, PT ####[facility] [id number] [place] [address] [facility] Prothrombin time (PT)Ordered By: Aroldo Peña on 07-21-2024 PT Coag (PPP) [Time] Prothrombin time (PT) High 9.0- 12.9 [facility] Comment on above: A hematocrit value g reater than 55% may lead to inaccurate results in coagulation testing. Patients having hematocrit values >55% require a special collection tube for coagulation studies. Please contact the laboratory at [phone] for redraw instructions. RBC Auto (Bld) [#/Vol]on RBC (Bld) [#/Vol] Erythrocytes [#/volu me] in Blood by Automated count 4.20-5.40 [facility] Serum or plasma albumin/glob ulin mass ratioon 07-21-2024 Albumin/Globulin [Mass ratio] Serum or plasma albumin/globulin mass ratio [facility] Serum or plasma anion gap de terminationon 07-21-2024 Anion gap [Moles/Vol] Serum or plasma an ion gap determination [facility] Telephone Encounteron 2023 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 Message Text Situation: Call transfer from [facility] with breathing issues. Attempt to help with EMS but difficulties. Call to EMS but told unable to send and unable to conference call. Patient disconnected. Attempt to call but no answer. Call to [facility] managed by [facility] is contracted via hospital. Patient lives in independent living managed by [facility]. Kwasi gil will call to have her checked out. Patient needs to get life alert. Background: See above. Cardiology with . Assessment: Message to Dr. Kurin. Varghese Recommendation: Normal [facility] [employer] [facility] 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 Message Text Caller transferred to nurse for sx of: Shortness of Breath, Abdominal or Chest Pain, (Patient is not sure which it is). Normal [facility] [employer] [facility] Troponin I High Sensitivityo n 07-21-2024 Troponin I High Sensitivity 53.5 pg/mL Off scale high 0.0-15.0 [facility] Comment on above: Result Comment: Crit ical Result : Called to and read back by: JARED PANG at: 07/21/2024 23:08:48 by:[id number] PERFORMED BY: [address] [address] PATHOLOGIST SUPERVISOR [employer]SEMBL[employer] ROOM AKILAH LOMBARDO M.D. Performed By: #### B LESTER, HS TROP ####[address] Basic Metabolic Panelon 11-1 Anion gap [Moles/Vol] 11.1 mmol/L Normal 6.0-15.0 Th e [facility] Comment on above: Performed By: #### B LESTER, CBC ####[address] Calcium [Mass/Vol] 8.3 mg/dL Low 8.6-10.3 [facility] Comment on above: Performed By: #### B LESTER, CBC ####[place] [id number] [facility] Chloride [Moles/Vol] 106 mmol/L Normal 98-107 [facility] Comment on above: Performed By: #### B MP, CBC ####[place] [id number] [facility] CO2 [Moles/Vol] 25.5 mmol/L Normal 21.0-31.0 [facility] Comment on above: Performed By: #### B LESTER, CBC ####[place] [id number] [place] Creatinine [Mass/Vol] 1.07 mg/dL Normal 0.60-1.20 [facility] Comment on above: Performed By: #### B MP, CBC ####[address] Creatinine Clr Calc Pharmacy 36.26 Normal [facility] Comment on above: Result Comment: PERF ORMED BY: [facility] [address] [place] [address] PATHOLOGIST SUPERVISOR ASSEMBLY ROOM AKILAH LOMBARDO M.D. Performed By: #### B MP, CBC ####[address] Estimated GFR 52.185 mL/Min Normal [facility] Comment on above: Performed By: #### B MP, CBC ####[address] Glucose [Mass/Vol] 111 mg/dL High 70-100 [facility] Comment on above: Result Comment: [facility] Glucose Reference Range is dependent on time and content of last meal. Glucose of more than 200 mg/dL in a nonstressed, ambulatory subject supports the diagnosis of Diabetes Mellitus. ADA recommended reference range Performed By: #### B MP, CBC ####[address] Potassium [Moles/Vol] 3.6 mmol/L Normal 3.5-5.1 [facility] Comment on above: Performed By: #### B MP, CBC ####[address] Sodium [Moles/Vol] 139 mmol/L Normal 136-145 [facility] Comment on above: Performed By: #### B MP, CBC ####[address] Urea nitrogen [Mass/Vol] 23 mg/dL Normal 7-25 [facility] Comment on above: Performed By: #### B MP, CBC ####[address] Basophils Auto (Bld) [#/Vol] Ordered By: Shilpa Fenton on 07-03-2024 Basophils (Bld) [#/Vol] Automated basophil count 0.0-0.2 [facility] Basophils/100 WBC Auto (Bld) Ordered By: Shilpa Fenton on 07-03-2024 Basophils/100 WBC (Bld) Automated basophil % . [facility] Calcium [Mass/volume] in Ser um or PlasmaOrdered By: Shilpa Fenton on 07-03-2024 Calcium [Mass/Vol] Calcium [Mass/volume ] in Serum or Plasma Low 8.6-10.3 [facility] Carbon dioxide, total [Moles /volume] in Serum or PlasmaOrdered By: Shilpa Fenton on 07-03-2024 CO2 [Moles/Vol] Carbon dioxide, tota l [Moles/volume] in Serum or Plasma 21.0-31.0 [facility] Chloride [Moles/volume] in S vaughn or PlasmaOrdered By: Shilpa Fenton on 07-03-2024 Chloride [Moles/Vol] Chloride [Moles/vol ume] in Serum or Plasma 98-107 [facility] Complete Blood Count Auto Di ffon 07-03-2024 Basophils (Bld) [#/Vol] 0.0 10*3/uL Normal 0.0-0.2 [facility] Comment on above: Result Comment: PERF ORMED BY: [facility] [address] [facility] [place] [id number] PATHOLOGIST SUPER[employer] AKILAH LOMBARDO M.D. Performed By: #### B MP, CBC ####[facility] [place] [address] [place] Basophils/100 WBC (Bld) 0.3 % Normal . [facility] Comment on above: Performed By: #### B MP, CBC ####[facility] [id number] [place] [id number] [facility] Eosinophils (Bld) [#/Vol] 0.2 10*3/uL Normal 0.0-0.45 [facility] Comment on above: Performed By: #### B MP, CBC ####[address] Eosinophils/100 WBC (Bld) 2.3 % Normal . [facility] Comment on above: Performed By: #### B MP, CBC ####[address] Erythrocyte distribution width (RBC) [Ratio] 14.3 % Normal 11.9-15.3 [facility] Comment on above: Performed By: #### B MP, CBC ####[address] Hematocrit (Bld) [Volume fraction] 35.3 % Normal 34.0-46.4 [facility] Comment on above: Performed By: #### B MP, CBC ####[address] Hemoglobin (Bld) [Mass/Vol] 11.9 g/dL Normal 11.8-15.4 [facility] Comment on above: Performed By: #### B MP, CBC ####[address] Lymphocytes (Bld) [#/Vol] 1.1 10*3/uL Normal 1.00-4.8 [facility] Comment on above: Performed By: #### B MP, CBC ####[place] [id number] [facility] Lymphocytes/100 WBC (Bld) 10.9 % Normal . [facility] Comment on above: Performed By: #### B MP, CBC ####[place] [id number] [facility] MCH (RBC) [Entitic mass] 31.6 pg Normal 24.7-34.3 [facility] Comment on above: Performed By: #### B MP, CBC ####[place] [id number] [facility] MCV (RBC) [Entitic vol] 93.9 fL Normal 80-100 [facility] Comment on above: Performed By: #### B MP, CBC ####[address] [address] [facility] Mean Corpuscular HGB Conc 33.7 g/dL Normal 32.0-35.0 [facility] Comment on above: Performed By: #### B MP, CBC ####[address] [address] [facility] Monocytes (Bld) [#/Vol] 0.5 10*3/uL Normal 0.0-0.8 [facility] Comment on above: Performed By: #### B MP, CBC ####[place] [id number] [facility] Monocytes/100 WBC (Bld) 5.6 % Normal . [facility] Comment on above: Performed By: #### B MP, CBC ####[address] Neutrophils (Bld) [#/Vol] 7.9 10*3/uL High 1.8-7.7 [facility] Comment on above: Performed By: #### B MP, CBC ####[place] [id number] [facility] Neutrophils/100 WBC (Bld) 80.9 % Normal . [facility] Comment on above: Performed By: #### B MP, CBC ####[place] [id number] [facility] NRBC% 0.1 /100{WBC} Normal 0-0.5 [facility] Comment on above: Performed By: #### B MP, CBC ####[place] [id number] [facility] Platelet mean volume (Bld) [Entitic vol] 8.7 fL Normal 6.3-10.7 [facility] Comment on above: Performed By: #### B MP, CBC ####[place] [id number] [facility] Platelets (Bld) [#/Vol] 227 10*3/uL Normal 150-450 [facility] Comment on above: Performed By: #### B MP, CBC ####[facility] [place] [id number] [facility] RBC (Bld) [#/Vol] 3.76 10*6/uL Normal 3.60-5.00 [facility] Comment on above: Performed By: #### B MP, CBC ####[facility] [id number] [place] [id number] [facility] WBC (Bld) [#/Vol] 9.8 10*3/uL Normal 3.8-11.6 [facility] Comment on above: Performed By: #### B MP, CBC ####[place] [id number] [address] Creatinine [Mass/volume] in Serum or PlasmaOrdered By: Shilpa Fenton on 07-03-2024 Creatinine [Mass/Vol] Creatinine [Mass/v olume] in Serum or Plasma 0.60-1.20 [facility] Eosinophils Auto (Bld) [#/Vo l]Ordered By: Shilpa Fenton on 07-03-2024 Eosinophils (Bld) [#/Vol] Automated eosinophil count 0.0-0.45 [facility] Eosinophils/100 WBC Auto (Bl d)Ordered By: Shilpa Fenton on 07-03-2024 Eosinophils/100 WBC (Bld) Automated eosinophil % . [facility] Erythrocyte distribution wid th Auto (RBC) [Ratio]Ordered By: Shilpa Fenton on 07-03-2024 Erythrocyte distribution width (RBC) [Ratio] Erythrocyte distribution width [Ratio] by Automated count 11.9-15.3 [facility] Glucose [Mass/volume] in Ser um or PlasmaOrdered By: Shilpa Fenton on 07-03-2024 Glucose [Mass/Vol] Glucose [Mass/volume ] in Serum or Plasma High 70-100 [facility] Comment on above: ADA recommended refe rence rangeRandom Glucose Reference Range is dependent on time and content of last meal. Glucose of more than 200 mg/dL in a nonstressed, ambulatory subject supports the diagnosis of Diabetes Mellitus. Hematocrit Auto (Bld) [Volum e fraction]Ordered By: Shilpa Fenton on 07-03-2024 Hematocrit (Bld) [Volume fraction] Hematocrit [Volume Fraction] of Blood by Automated count 34.0-46.4 [facility] Hemoglobin [Mass/volume] in BloodOrdered By: Shilpa Fenton on 07-03-2024 Hemoglobin (Bld) [Mass/Vol] Hemoglobin [Mass/volume] in Blood 11.8-15.4 [facility] Leukocytes [#/volume] correc anne marie for nucleated erythrocytes in Blood by Automated counOrdered By: Shilpa Fenton on 07-03-2024 WBC corrected for nucl RBC Auto (Bld) [#/Vol] Leukocytes [#/volume] corrected for nucleated erythrocytes in Blood by Automated coun 3.8-11.6 [facility] Lymphocytes Auto (Bld) [#/Vo l]Ordered By: Shilpa Fenton on 07-03-2024 Lymphocytes (Bld) [#/Vol] Lymphocytes [#/volume] in Blood by Automated count 1.00-4.8 [facility] Lymphocytes/100 WBC Auto (Bl d)Ordered By: Shilpa Fenton on 07-03-2024 Lymphocytes/100 WBC (Bld) Lymphocytes/100 leukocytes in Blood by Automated count . [facility] MCH Auto (RBC) [Entitic mass ]Ordered By: Shilpa Fenton on 07-03-2024 MCH (RBC) [Entitic mass] MCH [Entitic mass] by Automated count 24.7-34.3 [facility] MCHC Auto (RBC) [Mass/Vol]Or dered By: Shilpa Fenton on 07-03-2024 MCHC (RBC) [Mass/Vol] MCHC [Mass/volume] by Automated count 32.0-35.0 [facility] MCV Auto (RBC) [Entitic vol] Ordered By: Shilpa Fenton on 07-03-2024 MCV (RBC) [Entitic vol] MCV [Entitic volume] by Automated count 80-100 [facility] Monocytes Auto (Bld) [#/Vol] Ordered By: Shilpa Fenton on 07-03-2024 Monocytes (Bld) [#/Vol] Automated blood monocyte count 0.0-0.8 [facility] Monocytes/100 WBC Auto (Bld) Ordered By: Shilpa Fenton on 07-03-2024 Monocytes/100 WBC (Bld) Automated monocyte % . [facility] Neutrophils Auto (Bld) [#/Vo l]Ordered By: Shilpa Fenton on 07-03-2024 Neutrophils (Bld) [#/Vol] Neutrophils [#/volume] in Blood by Automated count High 1.8-7.7 [facility] Neutrophils/100 WBC Auto (Bl d)Ordered By: Shilpa Fenton on 07-03-2024 Neutrophils/100 WBC (Bld) Automated neutrophil % . [facility] No Panel InformationOrdered By: Shilpa Fenton on 07-03-2024 Estimated GFR (CKD-EPI) 52.185 mL/Min [facility] Creatinine Clearance (Chem 36.26 [facility] Nucleated erythrocytes [Pres ence] in Blood by Automated countOrdered By: Shilpa Fenton on 07-03-2024 Nucleated RBC Auto Ql (Bld) Nucleated erythrocytes [Presence] in Blood by Automated count 0-0.5 [facility] Platelet mean volume Auto (B ld) [Entitic vol]Ordered By: Shilpa Fenton on 07-03-2024 Platelet mean volume (Bld) [Entitic vol] Platelet mean volume [Entitic volume] in Blood by Automated count 6.3-10.7 [facility] Platelets Auto (Bld) [#/Vol] Ordered By: Shilpa Fenton on 07-03-2024 Platelets (Bld) [#/Vol] Platelets [#/volume] in Blood by Automated count 150-450 [facility] Potassium [Moles/volume] in Serum or PlasmaOrdered By: Shilpa Fenton on 07-03-2024 Potassium [Moles/Vol] Potassium [Moles/v olume] in Serum or Plasma 3.5-5.1 [facility] RBC Auto (Bld) [#/Vol]Ordere d By: Shilpa Fenton on 07-03-2024 RBC (Bld) [#/Vol] Erythrocytes [#/volu me] in Blood by Automated count 3.60-5.00 [facility] Serum or plasma anion gap de terminationOrdered By: Shilpa Fenton on 07-03-2024 Anion gap [Moles/Vol] Serum or plasma an ion gap determination 6.0-15.0 [facility] Sodium [Moles/volume] in Ser um or PlasmaOrdered By: Shilpa Fenton on 07-03-2024 Sodium [Moles/Vol] Sodium [Moles/volume ] in Serum or Plasma 136-145 [facility] Urea nitrogen [Mass/volume] in Serum or PlasmaOrdered By: Shilpa Fenton on 07-03-2024 Urea nitrogen [Mass/Vol] Urea nitrogen [Mass/volume] in Serum or Plasma 7-25 [facility] WBC Auto (Bld) [#/Vol]Ordere d By: Shilpa Fenton on 07-03-2024 WBC (Bld) [#/Vol] Leukocytes [#/volume ] in Blood by Automated count 3.8-11.6 [facility] Basic Metabolic Panelon 06-20 Anion gap [Moles/Vol] 14.7 mmol/L Normal 6.0-15.0 [facility] Comment on above: Performed By: #### B MP ####[place] [id number] [facility] Calcium [Mass/Vol] 8.4 mg/dL Low 8.6-10.3 [facility] Comment on above: Performed By: #### B MP ####[address] [address] [facility] Chloride [Moles/Vol] 104 mmol/L Normal 98-107 [facility] Comment on above: Performed By: #### B MP ####[address] [address] [facility] CO2 [Moles/Vol] 23.3 mmol/L Normal 21.0-31.0 [facility] Comment on above: Performed By: #### B MP ####[place] [id number] [facility] Creatinine [Mass/Vol] 1.18 mg/dL Normal 0.60-1.20 [facility] Comment on above: Performed By: #### B MP ####[place] [id number] [facility] Creatinine Clr Calc Pharmacy 32.31 Normal [facility] Comment on above: Result Comment: PERF ORMED BY: [facility] [address] [place] [place] [id number] PATHOLOGIST SUPERVISOR [employer] AKILAH LOMBARDO M.D. Performed By: #### B MP ####[address] GFR/1.73 sq M.predicted MDRD (S/P/Bld) [Vol rate/Area] 46.403 mL/min/{1.73_m2} Normal [facility] Comment on above: Performed By: #### B MP ####[address] Glucose [Mass/Vol] 166 mg/dL High 70-100 [facility] Comment on above: Result Comment: [facility] Glucose Reference Range is dependent on time and content of last meal. Glucose of more than 200 mg/dL in a nonstressed, ambulatory subject supports the diagnosis of Diabetes Mellitus. ADA recommended reference range Performed By: #### B MP ####[address] Potassium [Moles/Vol] 4.0 mmol/L Normal 3.5-5.1 [facility] Comment on above: Performed By: #### B MP ####[address] Sodium [Moles/Vol] 138 mmol/L Normal 136-145 [facility] Comment on above: Performed By: #### B MP ####[place] [id number] [facility] Urea nitrogen [Mass/Vol] 24 mg/dL Normal 7-25 [facility] Comment on above: Performed By: #### B MP ####[place] [id number] [facility] Anion gap [Moles/Vol] 12.9 mmol/L Normal 6.0-15.0 [facility] e [facility] Comment on above: Performed By: #### B MP ####[place] [id number] [facility] Calcium [Mass/Vol] 8.4 mg/dL Low 8.6-10.3 [facility] Comment on above: Performed By: #### B MP ####[place] [id number] [facility] Chloride [Moles/Vol] 104 mmol/L Normal 98-107 [facility] Comment on above: Performed By: #### B MP ####[address] CO2 [Moles/Vol] 24.2 mmol/L Normal 21.0-31.0 [facility] Comment on above: Performed By: #### B MP ####[address] Creatinine [Mass/Vol] 1.07 mg/dL Normal 0.60-1.20 [facility] Comment on above: Performed By: #### B MP ####[address] Creatinine Clr Calc Pharmacy 35.63 Normal [facility] Comment on above: Result Comment: PERF ORMED BY: [facility] [address] [place] [address] PATHOLOGIST SUPERVISOR [employer]SEM[employer] ROOM VITOR ZARATE M.D. Performed By: #### B MP ####[address] GFR/1.73 sq M.predicted MDRD (S/P/Bld) [Vol rate/Area] 52.185 mL/min/{1.73_m2} Normal [facility] Comment on above: Performed By: #### B MP ####[place] [id number] [facility] Glucose [Mass/Vol] 101 mg/dL High 70-100 [facility] Comment on above: Result Comment: [facility] Glucose Reference Range is dependent on time and content of last meal. Glucose of more than 200 mg/dL in a nonstressed, ambulatory subject supports the diagnosis of Diabetes Mellitus. ADA recommended reference range Performed By: #### B MP ####[place] [id number] [facility] Potassium [Moles/Vol] 4.1 mmol/L Normal 3.5-5.1 [facility] Comment on above: Performed By: #### B MP ####[address] Sodium [Moles/Vol] 137 mmol/L Normal 136-145 [facility] Comment on above: Performed By: #### B MP ####[place] [id number] [facility] Urea nitrogen [Mass/Vol] 23 mg/dL Normal 7-25 [facility] Comment on above: Performed By: #### B MP ####[address] Complete Blood Count Auto Di ffon 07-02-2024 Basophils (Bld) [#/Vol] 0.1 10*3/uL Normal 0.0-0.2 [facility] Comment on above: Result Comment: PERF ORMED BY: [facility] [address] [place] [address] PATHOLOGIST SUPERVIS[employer] AKILAH LOMBARDO M.D. Performed By: #### C BC ####[place] [id number] [facility] Basophils/100 WBC (Bld) 1.3 % Normal . [facility] Comment on above: Performed By: #### C BC ####[place] [id number] [facility] Eosinophils (Bld) [#/Vol] 0.2 10*3/uL Normal 0.0-0.45 [facility] Comment on above: Performed By: #### C BC ####[address] Eosinophils/100 WBC (Bld) 1.9 % Normal . [facility] Comment on above: Performed By: #### C BC ####[facility] [address] Erythrocyte distribution width (RBC) [Ratio] 14.2 % Normal 11.9-15.3 [facility] Comment on above: Performed By: #### C BC ####[address] Hematocrit (Bld) [Volume fraction] 38.5 % Normal 34.0-46.4 [facility] Comment on above: Performed By: #### C BC ####[address] Hemoglobin (Bld) [Mass/Vol] 12.8 g/dL Normal 11.8-15.4 [facility] Comment on above: Performed By: #### C BC ####[address] Lymphocytes (Bld) [#/Vol] 1.7 10*3/uL Normal 1.00-4.8 [facility] Comment on above: Performed By: #### C BC ####[address] Lymphocytes/100 WBC (Bld) 19.1 % Normal . [facility] Comment on above: Performed By: #### C BC ####[address] MCH (RBC) [Entitic mass] 31.5 pg Normal 24.7-34.3 [facility] Comment on above: Performed By: #### C BC ####[address] MCV (RBC) [Entitic vol] 94.4 fL Normal 80-100 [facility] Comment on above: Performed By: #### C BC ####[address] Mean Corpuscular HGB Conc 33.3 g/dL Normal 32.0-35.0 [facility] Comment on above: Performed By: #### C BC ####[address] Monocytes (Bld) [#/Vol] 0.4 10*3/uL Normal 0.0-0.8 [facility] Comment on above: Performed By: #### C BC ####[address] Monocytes/100 WBC (Bld) 4.8 % Normal . [facility] Comment on above: Performed By: #### C BC ####[address] Neutrophils (Bld) [#/Vol] 6.7 10*3/uL Normal 1.8-7.7 [facility] Comment on above: Performed By: #### C BC ####[address] Neutrophils/100 WBC (Bld) 72.9 % Normal . [facility] Comment on above: Performed By: #### C BC ####[address] NRBC% 0.2 /100{WBC} Normal 0-0.5 [facility] Comment on above: Performed By: #### C BC ####[address] Platelet mean volume (Bld) [Entitic vol] 8.2 fL Normal 6.3-10.7 [facility] Comment on above: Performed By: #### C BC ####[address] Platelets (Bld) [#/Vol] 238 10*3/uL Normal 150-450 [facility] Comment on above: Performed By: #### C BC ####[address] RBC (Bld) [#/Vol] 4.08 10*6/uL Normal 3.60-5.00 [facility] Comment on above: Performed By: #### C BC ####[address] WBC (Bld) [#/Vol] 9.1 10*3/uL Normal 3.8-11.6 [facility] Comment on above: Performed By: #### C ####[facility] [id number] [place] [id number] [facility] ECG 12 lead ECGon 07-02-2024 ECG 12 lead ECG [facility] Main [place] [id number] Electrocardiograph Report Signed Patient: Austin Golden MR#: [id number] 8 : 1940 Acct:[id number] Age/Sex: 83 / F ADM Date: 06/30/24 Loc: 3T Room: [address] [place] [address] Type: ADM IN Attending Dr: Shilpa Fenton [...] Mac MD 1 09/01/23 1602 Normal [facility] ECG 12 lead ECG [facility] Main [place] [id number] Electrocardiograph Report Signed Patient: Austin Golden MR#: [id number] 8 : 1940 Acct:[id number] Age/Sex: 83 / F ADM Date: 06/30/24 Loc: 3T Room: [address] [place] [address] Type: ADM IN Attending Dr: Shilpa Fenton [...] Mac MD 1 09/01/23 1600 Normal [facility] ECG post procedureon 024 ECG post procedure [facility] [place] [address] Electrocardiograph Report Signed Patient: Austin Golden MR#: [id number] 8 : 1940 Acct:[id number] Age/Sex: 83 / F ADM Date: 06/30/24 Loc: Room: [address] [place] [address] Type: ADM IN Attending Dr: Shilpa Fenton [...] Mac MD 1 09/01/23 1601 Normal [facility] Glucose Glucometer (BldC) [M ass/Vol]Ordered By: Shilpa Fenton on 07-02-2024 Glucose [Mass/Vol] Capillary blood gluc ose measurement by glucometer (mass/volume) [facility] Comment on above: Random Glucose Refer ence Range is dependent on time and content of last meal. Glucose of more than 200 mg/dL in a nonstressed, ambulatory subject supports the diagnosis of Diabetes Mellitus. Glucose Poct Glucometerson 1 09-01-2023 Glucose [Mass/Vol] 172 mg/dL Normal [facility] Comment on above: Result Comment: [place]am om Glucose Reference Range is dependent on time and content of last meal. Glucose of more than 200 mg/dL in a nonstressed, ambulatory subject supports the diagnosis of Diabetes Mellitus. PERFORMED BY: [facility] [address] [place] [id number] PATHOLOGIST SUPERVISOR [employer] RO[employer] AKILAH LOMBARDO M.D. Performed By: #### G HEMANTH ####Point of Care testing, Basic Metabolic Panelon 06-20 Anion gap [Moles/Vol] 13.0 mmol/L Normal 6.0-15.0 [facility] e [facility] Comment on above: Performed By: #### C , BMP ####[place] [address] [place] [address] [facility] Calcium [Mass/Vol] 8.2 mg/dL Low 8.6-10.3 [facility] Comment on above: Performed By: #### C BC, BMP ####[facility] [place] [address] [place] Chloride [Moles/Vol] 105 mmol/L Normal 98-107 [facility] Comment on above: Performed By: #### C , BMP ####[place] [address] [place] [address] [facility] CO2 [Moles/Vol] 26.1 mmol/L Normal 21.0-31.0 [facility] Comment on above: Performed By: #### C BC, BMP ####[place] [id number] [facility] Creatinine [Mass/Vol] 1.12 mg/dL Normal 0.60-1.20 [facility] Comment on above: Performed By: #### C BC, BMP ####[place] [id number] [facility] Creatinine Clr Calc Pharmacy 33.15 Normal [facility] Comment on above: Result Comment: PERF ORMED BY: [facility] [address] [place] [address] PATHOLOGIST SUPERVISOR ASSEMBLY ROOM VITOR ZARATE M.D. Performed By: #### C BC, BMP ####[address] GFR/1.73 sq M.predicted MDRD (S/P/Bld) [Vol rate/Area] 49.402 mL/min/{1.73_m2} Normal [facility] Comment on above: Performed By: #### C BC, BMP ####[place] [id number] [facility] Glucose [Mass/Vol] 87 mg/dL Normal 70-100 [facility] Comment on above: Result Comment: [place]am Glucose Reference Range is dependent on time and content of last meal. Glucose of more than 200 mg/dL in a nonstressed, ambulatory subject supports the diagnosis of Diabetes Mellitus. ADA recommended reference range Performed By: #### C BC, BMP ####[place] [id number] [facility] Potassium [Moles/Vol] 4.1 mmol/L Normal 3.5-5.1 [facility] Comment on above: Performed By: #### C BC, BMP ####[place] [id number] [facility] Sodium [Moles/Vol] 140 mmol/L Normal 136-145 [facility] Comment on above: Performed By: #### C BC, BMP ####[address] [address] [place] Urea nitrogen [Mass/Vol] 24 mg/dL Normal 7-25 [facility] Comment on above: Performed By: #### C ABI, BMP ####[address] Complete Blood Count Auto Di ffon 07-01-2024 Basophils (Bld) [#/Vol] 0.1 10*3/uL Normal 0.0-0.2 [facility] Comment on above: Result Comment: PERF ORMED BY: [facility] [address] [place] [address] PATHOLOGIST SUPERVISOR ASSEMBLY ROOM VITOR ZARATE M.D. Performed By: #### C ABI, BMP ####[address] Basophils/100 WBC (Bld) 1.0 % Normal . [facility] Comment on above: Performed By: #### C ABI, BMP ####[address] Eosinophils (Bld) [#/Vol] 0.2 10*3/uL Normal 0.0-0.45 [facility] Comment on above: Performed By: #### C ABI, BMP ####[address] Eosinophils/100 WBC (Bld) 2.5 % Normal . [facility] Comment on above: Performed By: #### C ABI, BMP ####[address] Erythrocyte distribution width (RBC) [Ratio] 14.0 % Normal 11.9-15.3 [facility] Comment on above: Performed By: #### C ABI, BMP ####[address] Hematocrit (Bld) [Volume fraction] 37.0 % Normal 34.0-46.4 [facility] Comment on above: Performed By: #### C ABI, BMP ####[address] Hemoglobin (Bld) [Mass/Vol] 12.4 g/dL Normal 11.8-15.4 [facility] Comment on above: Performed By: #### C ABI, BMP ####[address] Lymphocytes (Bld) [#/Vol] 1.4 10*3/uL Normal 1.00-4.8 [facility] Comment on above: Performed By: #### C ABI, BMP ####[address] Lymphocytes/100 WBC (Bld) 20.3 % Normal . [facility] Comment on above: Performed By: #### C ABI, BMP ####[address] MCH (RBC) [Entitic mass] 31.8 pg Normal 24.7-34.3 [facility] Comment on above: Performed By: #### C ABI, BMP ####[address] MCV (RBC) [Entitic vol] 95.0 fL Normal 80-100 [facility] Comment on above: Performed By: #### C ABI, BMP ####[address] Mean Corpuscular HGB Conc 33.5 g/dL Normal 32.0-35.0 [facility] Comment on above: Performed By: #### C ABI, BMP ####[address] Monocytes (Bld) [#/Vol] 0.5 10*3/uL Normal 0.0-0.8 [facility] Comment on above: Performed By: #### C ABI, BMP ####[address] Monocytes/100 WBC (Bld) 7.2 % Normal . [facility] Comment on above: Performed By: #### C ABI, BMP ####[address] Neutrophils (Bld) [#/Vol] 4.8 10*3/uL Normal 1.8-7.7 [facility] Comment on above: Performed By: #### C ABI, BMP ####[address] Neutrophils/100 WBC (Bld) 69.0 % Normal . [facility] Comment on above: Performed By: #### C ABI, BMP ####[address] NRBC% 0.2 /100{WBC} Normal 0-0.5 [facility] Comment on above: Performed By: #### C ABI, BMP ####[address] Platelet mean volume (Bld) [Entitic vol] 8.9 fL Normal 6.3-10.7 [facility] Comment on above: Performed By: #### C ABI, BMP ####[address] Platelets (Bld) [#/Vol] 231 10*3/uL Normal 150-450 [facility] Comment on above: Performed By: #### C ABI, BMP ####[address] RBC (Bld) [#/Vol] 3.90 10*6/uL Normal 3.60-5.00 [facility] Comment on above: Performed By: #### Kathie ALEX, BMP ####[address] WBC (Bld) [#/Vol] 7.0 10*3/uL Normal 3.8-11.6 [facility] Comment on above: Performed By: #### Kathie ALEX, BMP ####[place] [id number] [facility] ECG 12 lead ECGon 07-01-2024 ECG 12 lead ECG [facility] [address] [place] [address] [place] [address] Electrocardiograph Report Signed Patient: Austin Golden MR#: [id number] 8 : 1940 Acct:[id number] Age/Sex: 83 / F ADM Date: 06/30/24 Loc: Room: [address] [place] [address] Type: ADM IN Attending Dr: Shilpa Fenton [...] Mac MD 1 08/31/23 1729 Normal [facility] Troponin I High Sensitivityo n 07-01-2024 Troponin I High Sensitivity 92.3 pg/mL Off scale high 0.0-15.0 [facility] Comment on above: Result Comment: Crit ical Result : Called to and read back by: МАРИЯ MARKS at: 07/01/2024 01:58:44 by:[id number] PERFORMED BY: [facility] [address] [place] [id number] PATHOLOGIST SUPERVISOR ASSEMBLY ROOM VITOR ZARATE M.D. Performed By: #### H S TROP ####[facility] [place] [address] [facility] Troponin I.cardiac [Mass/vol ume] in Serum or Plasma by Detection limit <= 0.01 ng/Ordered By: Shilpa Fenton on 07-01-2024 Troponin I.cardiac DL <= 0.01 ng/mL [Mass/Vol] Troponin I.cardiac [Mass/volume] in Serum or Plasma by Detection limit <= 0.01 ng/ Critically high 0.0-15.0 [facility] Comment on above: Critical Result : Ca lled to and read back by: МАРИЯ MARKS at: 07/01/2024 01:58:44 by:[id number] Alanine aminotransferase [En zymatic activity/volume] in Serum or PlasmaOrdered By: Vic Mendez on 06-30-2024 ALT [Catalytic activity/Vol] Alanine aminotransferase [Enzymatic activity/volume] in Serum or Plasma 7-52 [facility] Albumin [Mass/volume] in Ser um or Plasma by Bromocresol green (BCG) dye binding methoOrdered By: Vic Mendez on 06-30-2024 Albumin BCG dye [Mass/Vol] Albumin [Mass/volume] in Serum or Plasma by Bromocresol green (BCG) dye binding metho 3.5-5.7 [facility] Alkaline phosphatase [Enzyma tic activity/volume] in Serum or PlasmaOrdered By: Vic Mendez on 06-30-2024 ALP [Catalytic activity/Vol] Alkaline phosphatase [Enzymatic activity/volume] in Serum or Plasma 34-104 [facility] Aspartate aminotransferase [ Enzymatic activity/volume] in Serum or PlasmaOrdered By: Vic Mendez on 06-30-2024 AST [Catalytic activity/Vol] Aspartate aminotransferase [Enzymatic activity/volume] in Serum or Plasma 13-39 [facility] B-Type Natriuretic Peptideon 06-30-2024 Natriuretic peptide B (Bld) [Mass/Vol] 84.0 pg/mL Normal 5-100 [facility] Comment on above: Result Comment: PERF ORMED BY: [facility] [address] [facility] [place] [place] [address] PATHOLOGIST SUPERVISOR ASSEMBLY ROOM VITOR ZARATE M.D. Performed By: #### C BC, PT, HS TROP, PTT, CK, CMP, BNP ####[facility] [id number] [place] [address] [facility] Basophils Auto (Bld) [#/Vol] Ordered By: Vic Mendez on 06-30-2024 Basophils (Bld) [#/Vol] Automated basophil count 0.0-0.2 [facility] Basophils/100 WBC Auto (Bld) Ordered By: Vic Mendez on 06-30-2024 Basophils/100 WBC (Bld) Automated basophil % . [facility] Bilirubin.total [Mass/volume ] in Serum or PlasmaOrdered By: Vic Mendez on 06-30-2024 Bilirubin [Mass/Vol] Bilirubin.total [Mass/volume] in Serum or Plasma 0.3-1.[address] [facility] [address] head/brain wo conon 06-30 CT head/brain wo con [facility] [address] [place] [address] [place] [address] CT Scan Report Signed Patient: Austin Golden MR#: [id number] 8 : 1940 Acct:[id number] Age/Sex: 83 / F ADM Date: 06/30/24 Loc: ER Room: Type: [facility] ER Attending Dr: Copies to: [...] Juanito Borja M.D.06/30/2024 3:47 PM Dictation Location: [place] [address] Transcribed By: [facility] 06/30/24 1547 Dictated By: Juanito Borja DO 06/30/24 1542 Signed By: 06/30/24 154 Normal [facility] Calcium [Mass/volume] in Ser um or PlasmaOrdered By: Vic Mendez on 06-30-2024 Calcium [Mass/Vol] Calcium [Mass/volume ] in Serum or Plasma 8.6-10.3 [facility] Carbon dioxide, total [Moles /volume] in Serum or PlasmaOrdered By: Vic Mendez on 06-30-2024 CO2 [Moles/Vol] Carbon dioxide, tota l [Moles/volume] in Serum or Plasma 21.0-31.0 [facility] Chloride [Moles/volume] in S vaughn or PlasmaOrdered By: Vic Mendez on 06-30-2024 Chloride [Moles/Vol] Chloride [Moles/vol ume] in Serum or Plasma 98-107 [facility] Complete Blood Count Auto Di ffon 06-30-2024 Basophils (Bld) [#/Vol] 0.1 10*3/uL Normal 0.0-0.2 [facility] Comment on above: Result Comment: PERF ORMED BY: [facility] [address] [place] [address] PATHOLOGIST SUPERVISOR ASSEMBLY ROOM VITOR ZARATE M.D. Performed By: #### C BC, PT, HS TROP, PTT, CK, CMP, BNP ####[address] Basophils/100 WBC (Bld) 0.8 % Normal . [facility] Comment on above: Performed By: #### C BC, PT, HS TROP, PTT, CK, CMP, BNP ####[address] Eosinophils (Bld) [#/Vol] 0.2 10*3/uL Normal 0.0-0.45 [facility] Comment on above: Performed By: #### C BC, PT, HS TROP, PTT, CK, CMP, BNP ####[address] Eosinophils/100 WBC (Bld) 1.5 % Normal . [facility] Comment on above: Performed By: #### C BC, PT, HS TROP, PTT, CK, CMP, BNP ####[address] Erythrocyte distribution width (RBC) [Ratio] 14.0 % Normal 11.9-15.3 [facility] Comment on above: Performed By: #### C BC, PT, HS TROP, PTT, CK, CMP, BNP ####[address] Hematocrit (Bld) [Volume fraction] 42.3 % Normal 34.0-46.4 [facility] Comment on above: Performed By: #### C BC, PT, HS TROP, PTT, CK, CMP, BNP ####[address] Hemoglobin (Bld) [Mass/Vol] 14.3 g/dL Normal 11.8-15.4 [facility] Comment on above: Performed By: #### C BC, PT, HS TROP, PTT, CK, CMP, BNP ####[address] Lymphocytes (Bld) [#/Vol] 1.4 10*3/uL Normal 1.00-4.8 [facility] Comment on above: Performed By: #### C BC, PT, HS TROP, PTT, CK, CMP, BNP ####[address] Lymphocytes/100 WBC (Bld) 14.0 % Normal . [facility] Comment on above: Performed By: #### C BC, PT, HS TROP, PTT, CK, CMP, BNP ####[address] MCH (RBC) [Entitic mass] 31.4 pg Normal 24.7-34.3 [facility] Comment on above: Performed By: #### C BC, PT, HS TROP, PTT, CK, CMP, BNP ####[address] MCV (RBC) [Entitic vol] 92.7 fL Normal 80-100 [facility] Comment on above: Performed By: #### C BC, PT, HS TROP, PTT, CK, CMP, BNP ####[address] Mean Corpuscular HGB Conc 33.9 g/dL Normal 32.0-35.0 [facility] Comment on above: Performed By: #### C BC, PT, HS TROP, PTT, CK, CMP, BNP ####[address] Monocytes (Bld) [#/Vol] 0.6 10*3/uL Normal 0.0-0.8 [facility] Comment on above: Performed By: #### C BC, PT, HS TROP, PTT, CK, CMP, BNP ####[address] Monocytes/100 WBC (Bld) 19.87 % Normal 0.00-20.00 [facility] Comment on above: Performed By: #### C BC, PT, HS TROP, PTT, CK, CMP, BNP ####[address] Monocytes/100 WBC (Bld) 5.9 % Normal . [facility] Comment on above: Performed By: #### C BC, PT, HS TROP, PTT, CK, CMP, BNP ####[address] Neutrophils (Bld) [#/Vol] 8.1 10*3/uL High 1.8-7.7 [facility] Comment on above: Performed By: #### C BC, PT, HS TROP, PTT, CK, CMP, BNP ####[address] Neutrophils/100 WBC (Bld) 77.8 % Normal . [facility] Comment on above: Performed By: #### C BC, PT, HS TROP, PTT, CK, CMP, BNP ####[address] NRBC% 0.1 /100{WBC} Normal 0-0.5 [facility] Comment on above: Performed By: #### C BC, PT, HS TROP, PTT, CK, CMP, BNP ####[address] Platelet mean volume (Bld) [Entitic vol] 8.5 fL Normal 6.3-10.7 [facility] Comment on above: Performed By: #### C BC, PT, HS TROP, PTT, CK, CMP, BNP ####[address] Platelets (Bld) [#/Vol] 259 10*3/uL Normal 150-450 [facility] Comment on above: Performed By: #### C BC, PT, HS TROP, PTT, CK, CMP, BNP ####[address] RBC (Bld) [#/Vol] 4.56 10*6/uL Normal 3.60-5.00 [facility] Comment on above: Performed By: #### C BC, PT, HS TROP, PTT, CK, CMP, BNP ####[address] WBC (Bld) [#/Vol] 10.4 10*3/uL Normal 3.8-11.6 [facility] Comment on above: Performed By: #### C BC, PT, HS TROP, PTT, CK, CMP, BNP ####[address] Comprehensive Metabolic Pane violeta 06-30-2024 Albumin [Mass/Vol] 4.3 g/dL Normal 3.5-5.7 [facility] Comment on above: Performed By: #### C BC, PT, HS TROP, PTT, CK, CMP, BNP ####[address] Albumin/Globulin [Mass ratio] 1.8 {ratio} Normal [facility] Comment on above: Performed By: #### C BC, PT, HS TROP, PTT, CK, CMP, BNP ####[address] ALP [Catalytic activity/Vol] 66 U/L Normal 34-104 [facility] Comment on above: Performed By: #### C BC, PT, HS TROP, PTT, CK, CMP, BNP ####[address] ALT [Catalytic activity/Vol] 31 U/L Normal 7-52 [facility] Comment on above: Performed By: #### C BC, PT, HS TROP, PTT, CK, CMP, BNP ####[address] Anion gap [Moles/Vol] 16.9 mmol/L High 6.0-15.0 e [facility] Comment on above: Performed By: #### C BC, PT, HS TROP, PTT, CK, CMP, BNP ####[address] AST [Catalytic activity/Vol] 36 U/L Normal 13-39 [facility] Comment on above: Performed By: #### C BC, PT, HS TROP, PTT, CK, CMP, BNP ####[address] Bilirubin [Mass/Vol] 0.9 mg/dL Normal 0.3-1.0 [facility] Comment on above: Performed By: #### C BC, PT, HS TROP, PTT, CK, CMP, BNP ####[address] Calcium [Mass/Vol] 9.2 mg/dL Normal 8.6-10.3 [facility] Comment on above: Performed By: #### C BC, PT, HS TROP, PTT, CK, CMP, BNP ####[address] Chloride [Moles/Vol] 99 mmol/L Normal 98-107 [facility] Comment on above: Performed By: #### C BC, PT, HS TROP, PTT, CK, CMP, BNP ####[address] CO2 [Moles/Vol] 27.6 mmol/L Normal 21.0-31.0 [facility] Comment on above: Performed By: #### C BC, PT, HS TROP, PTT, CK, CMP, BNP ####[address] Creatinine [Mass/Vol] 1.28 mg/dL High 0.60-1.20 [facility] Comment on above: Performed By: #### C BC, PT, HS TROP, PTT, CK, CMP, BNP ####[address] Creatinine Clr Calc Pharmacy 28.68 Normal [facility] Comment on above: Result Comment: PERF ORMED BY: [address] [place] [address] PATHOLOGIST SUPERVISOR ASSEMBLY ROOM VITOR ZARATE M.D. Performed By: #### C BC, PT, HS TROP, PTT, CK, CMP, BNP ####[address] GFR/1.73 sq M.predicted MDRD (S/P/Bld) [Vol rate/Area] 42.087 mL/min/{1.73_m2} Normal [facility] Comment on above: Performed By: #### C BC, PT, HS TROP, PTT, CK, CMP, BNP ####[address] Globulin (S) [Mass/Vol] 2.4 g/dL Normal [facility] Comment on above: Performed By: #### C BC, PT, HS TROP, PTT, CK, CMP, BNP ####[address] Glucose [Mass/Vol] 116 mg/dL High 70-100 [facility] Comment on above: Result Comment: [place] om Glucose Reference Range is dependent on time and content of last meal. Glucose of more than 200 mg/dL in a nonstressed, ambulatory subject supports the diagnosis of Diabetes Mellitus. ADA recommended reference range Performed By: #### C BC, PT, HS TROP, PTT, CK, CMP, BNP ####[address] Potassium [Moles/Vol] 3.5 mmol/L Normal 3.5-5.1 [facility] Comment on above: Performed By: #### C BC, PT, HS TROP, PTT, CK, CMP, BNP ####[address] Protein [Mass/Vol] 6.7 g/dL Normal 6.4-8.9 [facility] Comment on above: Performed By: #### C BC, PT, HS TROP, PTT, CK, CMP, BNP ####[address] Sodium [Moles/Vol] 140 mmol/L Normal 136-145 [facility] Comment on above: Performed By: #### C BC, PT, HS TROP, PTT, CK, CMP, BNP ####[address] Urea nitrogen [Mass/Vol] 25 mg/dL Normal 7-25 [facility] Comment on above: Performed By: #### C BC, PT, HS TROP, PTT, CK, CMP, BNP ####[address] Creatine Kinaseon 06-30-2024 CK [Catalytic activity/Vol] 43 U/L Normal 30-223 [facility] Comment on above: Performed By: #### C BC, PT, HS TROP, PTT, CK, CMP, BNP ####[address] Creatine kinase [Enzymatic a ctivity/volume] in Serum or PlasmaOrdered By: Vic Mendez on 06-30-2024 CK [Catalytic activity/Vol] Creatine kinase [Enzymatic activity/volume] in Serum or Plasma 30-223 [facility] Creatinine [Mass/volume] in Serum or PlasmaOrdered By: Vic Mendez on 06-30-2024 Creatinine [Mass/Vol] Creatinine [Mass/v olume] in Serum or Plasma High 0.60-1.20 [facility] Digoxinon 06-30-2024 Digoxin [Mass/Vol] 1.7 ng/mL Normal 0.9-2.0 [facility] Comment on above: Result Comment: Last dose: - PERFORMED BY: [place] [address] PATHOLOGIST SUPERVISOR ASSEMBLY ROOM VITOR ZARATE M.D. Performed By: #### D IG ####[facility] [id number] [place] [id number] [facility] Digoxin [Mass/volume] in Ser um or PlasmaOrdered By: Vic Mendez on 06-30-2024 Digoxin [Mass/Vol] Digoxin [Mass/volume ] in Serum or Plasma 0.9-2.0 [facility] Comment on above: Last dose: - ECG 12 lead ECGon 06-30-2024 ECG 12 lead ECG [facility] [place] [address] Electrocardiograph Report Signed Patient: Austin Golden MR#: [id number] 8 : 1940 Acct:[id number] Age/Sex: 83 / F ADM Date: 06/30/24 Loc: Room: [address] [place] [address] Type: ADM IN Attending Dr: Shilpa Fenton [...] ST abnormality Confirmed by Nesha Leger MD ([id number]) on 06/30/2024 9:32:03 PM Referred By: Electronically Signed By: Nesha Leger MD Transcribed By: MUS Signed By Nesha Leger MD 06/20 Normal [facility] ECG 12 lead ECG [facility] [place] [address] Electrocardiograph Report Signed Patient: Austin Golden MR#: [id number] 8 : 1940 Acct:[id number] Age/Sex: 83 / F ADM Date: 06/30/24 Loc: Room: [address] [place] [address] Type: ADM IN Attending Dr: Shilpa Fenton [...] depression laterally Confirmed by Nesha Leger MD ([id number]) on 06/30/2024 9:31:27 PM Referred By: Electronically Signed By: Nesha Leger MD Transcribed By: MUS Signed By Nesha Leger MD 06/20 Normal [facility] Eosinophils Auto (Bld) [#/Vo l]Ordered By: Vic Mendez on 06-30-2024 Eosinophils (Bld) [#/Vol] Automated eosinophil count 0.0-0.45 [facility] Eosinophils/100 WBC Auto (Bl d)Ordered By: Vic Mendez on 06-30-2024 Eosinophils/100 WBC (Bld) Automated eosinophil % . [facility] Erythrocyte distribution wid th Auto (RBC) [Ratio]Ordered By: Vic Mendez on 06-30-2024 Erythrocyte distribution width (RBC) [Ratio] Erythrocyte distribution width [Ratio] by Automated count 11.9-15.3 [facility] Globulin Calc (S) [Mass/Vol] Ordered By: Vic Mendez on 06-30-2024 Globulin (S) [Mass/Vol] Serum globulin measurement by calculation (mass/volume) [facility] Glucose [Mass/volume] in Ser um or PlasmaOrdered By: Vic Mendez on 06-30-2024 Glucose [Mass/Vol] Glucose [Mass/volume ] in Serum or Plasma High 70-100 [facility] Comment on above: ADA recommended refe rence rangeRandom Glucose Reference Range is dependent on time and content of last meal. Glucose of more than 200 mg/dL in a nonstressed, ambulatory subject supports the diagnosis of Diabetes Mellitus. Hematocrit Auto (Bld) [Volum e fraction]Ordered By: Vic Mendez on 06-30-2024 Hematocrit (Bld) [Volume fraction] Hematocrit [Volume Fraction] of Blood by Automated count 34.0-46.4 [facility] Hemoglobin [Mass/volume] in BloodOrdered By: Vic Mendez on 06-30-2024 Hemoglobin (Bld) [Mass/Vol] Hemoglobin [Mass/volume] in Blood 11.8-15.4 [facility] INR in Platelet poor plasma by Coagulation assayOrdered By: Vic Mendez on 06-30-2024 INR Coag (PPP) [Relative time] INR in Platelet poor plasma by Coagulation assay [facility] Comment on above: INR Therapeutic Rang [...] erythrocytes in Blood by Automated coun 3.8-11.6 [facility] Lymphocytes Auto (Bld) [#/Vo l]Ordered By: Vic Mendez on 06-30-2024 Lymphocytes (Bld) [#/Vol] Lymphocytes [#/volume] in Blood by Automated count 1.00-4.8 [facility] Lymphocytes/100 WBC Auto (Bl d)Ordered By: Vic Mendez on 06-30-2024 Lymphocytes/100 WBC (Bld) Lymphocytes/100 leukocytes in Blood by Automated count . [facility] MCH Auto (RBC) [Entitic mass ]Ordered By: Vic Mendez on 06-30-2024 MCH (RBC) [Entitic mass] MCH [Entitic mass] by Automated count 24.7-34.3 [facility] MCHC Auto (RBC) [Mass/Vol]Or dered By: Vic Mendez on 06-30-2024 MCHC (RBC) [Mass/Vol] MCHC [Mass/volume] by Automated count 32.0-35.0 [facility] [facility] MCV Auto (RBC) [Entitic vol] Ordered By: Vic Mendez on 06-30-2024 MCV (RBC) [Entitic vol] MCV [Entitic volume] by Automated count 80-100 [facility] Monocyte distribution width [Entitic volume] in Blood by AutomatedOrdered By: Vic Mendez on 06-30-2024 Monocyte distribution width Auto (Bld) [Entitic vol] Monocyte distribution width [Entitic volume] in Blood by Automated 0.00-20.00 [facility] Monocytes Auto (Bld) [#/Vol] Ordered By: Vic Mendez on 06-30-2024 Monocytes (Bld) [#/Vol] Automated blood monocyte count 0.0-0.8 [facility] Monocytes/100 WBC Auto (Bld) Ordered By: Vic Mendez on 06-30-2024 Monocytes/100 WBC (Bld) Automated monocyte % . [facility] Natriuretic peptide B [Mass/ Vol]Ordered By: Vic Mendez on 06-30-2024 Natriuretic peptide B (Bld) [Mass/Vol] BNP ser/plas 5-100 [facility] Neutrophils Auto (Bld) [#/Vo l]Ordered By: Vic Mendez on 06-30-2024 Neutrophils (Bld) [#/Vol] Neutrophils [#/volume] in Blood by Automated count High 1.8-7.7 [facility] Neutrophils/100 WBC Auto (Bl d)Ordered By: Vic Mendez on 06-30-2024 Neutrophils/100 WBC (Bld) Automated neutrophil % . [facility] No Panel InformationOrdered By: Vic Mendez on 06-30-2024 Estimated GFR (CKD-EPI) 42.087 mL/Min [facility] Creatinine Clearance (Chem 28.68 [facility] Nucleated erythrocytes [Pres ence] in Blood by Automated countOrdered By: Vic Mendez on 06-30-2024 Nucleated RBC Auto Ql (Bld) Nucleated erythrocytes [Presence] in Blood by Automated count 0-0.5 [facility] Partial Thromboplastin Timeo n 06-30-2024 aPTT Coag (Bld) [Time] 30.9 s Normal 25.1-36.5 [facility] e [facility] Comment on above: Result Comment: A he matocrit value greater than 55% may lead to inaccurate results in coagulation testing. Patients having hematocrit values >55% require a special collection tube for coagulation studies. Please contact the laboratory at [phone] for redraw instructions. PERFORMED BY: [facility] [address] [place] [address] PATHOLOGIST SUPERVISOR ASSEMBLY ROOM VITOR ZARATE M.D. Performed By: #### C BC, PT, HS TROP, PTT, CK, CMP, BNP ####[facility] [id number] [place] [address] [facility] Platelet mean volume Auto (B ld) [Entitic vol]Ordered By: Vic Mendez on 06-30-2024 Platelet mean volume (Bld) [Entitic vol] Platelet mean volume [Entitic volume] in Blood by Automated count 6.3-10.7 [facility] Platelets Auto (Bld) [#/Vol] Ordered By: Vic Mendez on 06-30-2024 Platelets (Bld) [#/Vol] Platelets [#/volume] in Blood by Automated count 150-450 [facility] Potassium [Moles/volume] in Serum or PlasmaOrdered By: Vic Mendez on 06-30-2024 Potassium [Moles/Vol] Potassium [Moles/v olume] in Serum or Plasma 3.5-5.1 [facility] Protein [Mass/volume] in Ser um or PlasmaOrdered By: Vic Mendez on 06-30-2024 Protein [Mass/Vol] Protein [Mass/volume ] in Serum or Plasma 6.4-8.9 [facility] Prothrombin Time INRon 06-30 INR Coag (PPP) [Relative time] 1.5 {INR} Normal [facility] Comment on above: Result Comment: [...] HS TROP, PTT, CK, CMP, BNP ####[facility] [place] [id number] [facility] PT Coag (PPP) [Time] 16.9 s High 9.0-12.9 [facility] Comment on above: Result Comment: A he matocrit value greater than 55% may lead to inaccurate results in coagulation testing. Patients having hematocrit values >55% require a special collection tube for coagulation studies. Please contact the laboratory at [phone] for redraw instructions. Performed By: #### C BC, PT, HS TROP, PTT, CK, CMP, BNP ####[facility] [place] [id number] [facility] Prothrombin time (PT)Ordered By: Vic Mendez on 06-30-2024 PT Coag (PPP) [Time] Prothrombin time (PT) High 9.0- 12.9 [facility] Comment on above: A hematocrit value g reater than 55% may lead to inaccurate results in coagulation testing. Patients having hematocrit values >55% require a special collection tube for coagulation studies. Please contact the laboratory at [phone] for redraw instructions. RBC Auto (Bld) [#/Vol]Ordere d By: Vic Mendez on 06-30-2024 RBC (Bld) [#/Vol] Erythrocytes [#/volu me] in Blood by Automated count 3.60-5.00 [facility] Serum or plasma albumin/glob ulin mass ratioOrdered By: Vic Mendez on 06-30-2024 Albumin/Globulin [Mass ratio] Serum or plasma albumin/globulin mass ratio [facility] Serum or plasma anion gap de terminationOrdered By: Vic Mendez on 06-30-2024 Anion gap [Moles/Vol] Serum or plasma an ion gap determination High 6.0-15.0 [facility] Sodium [Moles/volume] in Ser um or PlasmaOrdered By: Vic Mendez on 06-30-2024 Sodium [Moles/Vol] Sodium [Moles/volume ] in Serum or Plasma 136-145 [facility] Troponin I High Sensitivityo n 06-30-2024 Troponin I High Sensitivity 85.6 pg/mL Off scale high 0.0-15.0 [facility] Comment on above: Result Comment: Crit ical Result : Called to and read back by: ZENA [id number] at: 06/30/2024 21:50:47 by:[id number] PERFORMED BY: [place] [address] PATHOLOGIST SUPERVISOR ASSEMBLY ROOM VITOR ZARATE M.D. Performed By: #### H S TROP ####[place] [id number] [facility] Troponin I High Sensitivity 101.6 pg/mL Off scale high 0.0-15.0 [facility] Comment on above: Result Comment: Crit ical Result : Called to and read back by: TOMMIE FLOYD/ER at: 06/30/2024 16:12:30 by:[id number] PERFORMED BY: [place] [address] PATHOLOGIST SUPERVISOR ASSEMBLY ROOM VITOR ZARATE M.D. Performed By: #### C BC, PT, HS TROP, PTT, CK, CMP, BNP ####[place] [id number] [facility] Troponin I.cardiac [Mass/vol ume] in Serum or Plasma by Detection limit <= 0.01 ng/Ordered By: Vic Mendez on 06-30-2024 Troponin I.cardiac DL <= 0.01 ng/mL [Mass/Vol] Troponin I.cardiac [Mass/volume] in Serum or Plasma by Detection limit <= 0.01 ng/ Critically high 0.0-15.0 [facility] Comment on above: Critical Result : Ca lled to and read back by: TOMMIE FLOYD/ER at: 06/30/2024 16:12:30 by:[id number] Urea nitrogen [Mass/volume] in Serum or PlasmaOrdered By: Vic Mendez on 06-30-2024 Urea nitrogen [Mass/Vol] Urea nitrogen [Mass/volume] in Serum or Plasma 03-13 [facility] WBC Auto (Bld) [#/Vol]Ordere d By: Vic Mendez on 06-30-2024 WBC (Bld) [#/Vol] Leukocytes [#/volume ] in Blood by Automated count 3.8-11.6 [facility] X-ray reportOrdered By: Jadiel Borja on 06-30-2024 Study report [facility] [place] [address] XRay Report Signed Patient: Austin Golden MR#: [id number] : 1940 Acct:[id number] Age/Sex: 83 / F ADM Date: 4 Loc: ER Room: Type: [facility] ER Attending Dr: Copies to: [...] Juanito Borja M.D.06/30/2024 3:39 PM Dictation Location: [place] [address] Transcribed By: [facility] 06/30/24 1539 Dictated By: Juanito Borja DO 06/30/24 1537 Signed By: 06/30/24 1539 [facility] XR chest 2V*on 06-30-2024 XR chest 2V* [address] [address] XRay Report Signed Patient: Austin Golden MR#: [id number] : 1940 Acct:[id number] Age/Sex: 83 / F ADM Date: 06/30/24 Loc: ER Room: Type: [facility] ER Attending Dr: Copies to: [...] Juanito Borja M.D.06/30/2024 3:39 PM Dictation Location: [place] [address] Transcribed By: [facility] 06/30/24 1539 Dictated By: Juanito Borja DO 06/30/24 1537 Signed By: 06/30/24 1539 Normal [facility] aPTT in Platelet poor plasma by Coagulation assayOrdered By: Vic Mendez on 06-30-2024 aPTT Coag (PPP) [Time] Activated partial thromboplastin time (aPTT) in platelet poor plasma by coagulation a 25.1-36.5 [facility] Comment on above: A hematocrit value g reater than 55% may lead to inaccurate results in coagulation testing. Patients having hematocrit values >55% require a special collection tube for coagulation studies. Please contact the laboratory at [phone] for redraw instructions. FL BARIUM SWALLOW DOUBLE CNT RSTon 06-26-2024 FL BARIUM SWALLOW DOUBLE CNTRST EXAMINATION: FL BARIUM SWALLOW DOUBLE CNTRST 06/26/2024 11:51 AM CLINICAL HISTORY: timed barium esophagram protocol for suspected EGJOO (with tablet too if able) ASSOCIATED DIAGNOSIS: Esophageal dysphagia ORDERING PROVIDER: KATIE YUNG TECHNOLOGISTS NOTE: COMPARISON: None FLUOROSCOPIST: ADELAIDE CHILDERS FLUORO TIME: 7.1 Minutes PROCEDURE: Double contrast air and barium examination of the hypopharynx and esophagus in multiple upright positions and double contrast examination of the esophagus in multiple horizontal positions was performed utilizing fluoroscopic and radiographic techniques. INTRA-PROCEDURE MEDS: Barium Sulfate 60 % 200 mL Route: OralBarium Sulfate 98 % suspension 100 mL Route: OralBarium Sulfate 1 Tab Route: Oral FINDINGS: Mushroom Cutter fluoroscopic spot images of the abdomen: Non-obstructive [...] agree with the resident's interpretation. Normal [facility] [employer] [facility] RF videography Hypopharynx a nd Esophagus Views W liquid and paste contrast PO during swallowingon 06-26-2024 EXAMINATION: [facility] SWALLOW DOUBLE CNTRST 06/26/2024 11:51 AM CLINICAL HISTORY: timed barium esophagram protocol for suspected EGJOO (with tablet too if able) ASSOCIATED DIAGNOSIS: Esophageal dysphagia ORDERING PROVIDER: KATIE YUNG TECHNOLOGISTS NOTE: COMPARISON: None FLUOROSCOPIST: ADELAIDE CHILDERS TIME: 7.1 Minutes PROCEDURE: Double contrast air and barium examination of the hypopharynx and esophagus in multiple upright positions and double contrast examination of the esophagus in multiple horizontal positions was performed utilizing fluoroscopic and radiographic techniques. INTRA-PROCEDURE MEDS: Barium Sulfate 60 % 200 mL Route: OralBarium Sulfate 98 % suspension 100 mL Route: OralBarium Sulfate 1 Tab Route: Oral FINDINGS: Mushroom Cutter fluoroscopic spot images of the abdomen: Non-obstructive [...] KATIE YUNG TECHNOLOGISTS NOTE: COMPARISON: None FLUOROSCOPIST: ADELAIDE CHILDERS TIME: 7.1 Minutes PROCEDURE: Double contrast air and barium examination of the hypopharynx and esophagus in multiple upright positions and double contrast examination of the esophagus in multiple horizontal positions was performed utilizing fluoroscopic and radiographic techniques. INTRA-PROCEDURE MEDS: Barium Sulfate 60 % 200 mL Route: OralBarium Sulfate 98 % suspension 100 mL Route: OralBarium Sulfate 1 Tab Route: Oral FINDINGS: Mushroom Cutter fluoroscopic spot images of the abdomen: Non-obstructive [...] images and agree with the resident's interpretation. [facility] Radiology Study observation [facility]narrative) [facility] Hypopharynx a nd Esophagus Views W liquid and paste contrast PO during swallowingOrdered By: Ivonne Brooks on 06-26-2024 [facility] Work Phone: Telephone Encounteron 2023 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 Message Text Dr العلي office calling waiting for order to be placed for timed barium esophagogram Jazmin العلي [address] [place], [place] [id number] option #[address] العلي's nurse line Leela Encounter dated 05/29/[address] Yung Recommendations: Obtain timed barium esophagram or endoflip to confirm diagnosis. Dr Yung recommended pt has this procedure Telephone Information: Normal [facility] [employer] [facility] Telephone Encounteron 2023 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 Message Text Will forward to Dr. Katie Yung. Normal [facility] [employer] [facility] Telephone Encounteron 2023 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 Message Text Sanjuana from [facility] called and wanted to discuss nausea and weakness and unable to eat would like call to discuss Sanjuana [phone] Opt 1 then opt 3 Normal [facility] [employer] [facility] Anesthesia Postprocedure Taylor luationon 05-30-2024 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 Message Text Anesthesia Postoperative Assessment: [...] EVENTS: No notable events documented. Normal [facility] [employer] [facility] Anesthesia Preprocedure Eval uationon 05-29-2024 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 Message Text ASA: 2 No [...] were discussed with the patient and/or legal title insurance sales representative. The risks, benefits and alternatives were reviewed. Questions regarding anesthesia were answered. Patient and/or legal title insurance sales representative knows such anesthetics and procedures may be performed by Resident physicians, Certified Anesthesiologist Assistants, or Certified Nurse Anesthetists under the supervision of a physician. The patient /or the patient's legal title insurance sales representative agree with the plan for anesthesia. MHPATFORM Normal [facility] Anesthesia Transfer Of Careo n 05-29-2024 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 Message Text Patient taken to [...] Katie Yung MD Anesthesiologist: Syed Schmidt MD LIQUID CENTER ASSEMBLER: Maggie Angela APRN-CRNA ESOPHAGOGASTRODUODENOSCOPY with HREM catheter [...] report was received. CATE Castrejon Normal [facility] [employer] [facility] OP Noteon 05-29-2024 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 Message Text Patient's Name: Austin Golden Date: 05/29/24 Written informed consent obtained from patient. Endoscopic procedure risks (including but not limited to perforation, infection, bloating and bleeding) benefits and alternatives explained and questions answered. Patient verbalized understanding. Based on history and airway assessment patient is not an appropriate candidate for moderate sedation and will undergo sedation with the assistance of anesthesia physician/LIQUID CENTER ASSEMBLER team. Please see corresponding note for full details. Katie Yung MD 05/29/24 1:08 PM Austin Golden 83 year old Surgical Contact Serial Number: [id number] Location: ENDO 02 Date: 05/29/2024 TUNNEL MAN: Katie Yung MD ATTENDING:Katie Yung MD Procedure(s): [...] 50cm. Taped to right cheek. Esophageal dysphagia [704515] TEE PATH SPECIMEN SENT: no SPECIMEN: None [...] PCP. 3. F/u with Amna Powell at [facility] CC: Primary Care Provider: No primary care provider on file. PERSON COMPLETING NOTE: Katie Yung MD 05/29/2024 at 1:08 PM Patient meets criteria for discharge/transfer: Katie Yung MD Normal [facility] [employer] [facility] Procedureson 05-29-2024 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 Message Text High Resolution Esophageal Manometry (HREM) Name: Austin Golden : 1940 Indication: Esophageal dysphagia [945395] Attending: Katie Yung MD no referring provider Operating Brim Flexer: Jennifer Proctor LPN LES SUPINE UPRIGHT Residual [...] Katie Yung MD Invalid Interpretation Code [facility] [employer] [facility] Estimated glomerular filtrat ion rate (GFR) non- Americanon 05-28-2024 GFR/1.73 sq M.predicted among non-blacks MDRD (S/P/Bld) [Vol rate/Area] 30 mL/min/{1.73_m2} Low >=60 mL/min/1.[address] [place] [address] GFR/1.73 sq M.predicted among non-blacks MDRD (S/P/Bld) [Vol rate/Area] Estimated glomerular filtration rate (GFR) non- Low >=60 mL/min/1.[address] [place] [address] Laboratory - Chemistry and C hemistry - challengeon 05-28-2024 Calcium [Mass/Vol] 9.2 mg/dL 8.5-10.1 [facility] Chloride [Moles/Vol] 97 mmol/L Low 98-107 [facility] CO2 [Moles/Vol] 27.8 mmol/L 21.0-32.0 [facility] Creatinine [Mass/Vol] 1.64 mg/dL High 0.55-1.02 [facility] GFR/1.73 sq M.predicted MDRD (S/P/Bld) [Vol rate/Area] 36 mL/min/{1.73_m2} Low >=60 mL/min/1.[address] [place] [address] Glucose [Mass/Vol] 178 mg/dL High 74-106 [facility] Natriuretic peptide B (Bld) [Mass/Vol] 1199.0 pg/mL <=1800.0 [facility] Potassium [Moles/Vol] 3.2 mmol/L Low 3.5-5.1 [facility] Sodium [Moles/Vol] 137 mmol/L 136-145 [facility] Urea nitrogen [Mass/Vol] 22.0 mg/dL High 7.0-18.0 [facility] Urea nitrogen/Creatinine [Mass ratio] 13.4 mg/mg [facility] No Panel Informationon 05-28 Digoxin Level 2.1 ng/mL High 0.9-2.0 [facility] Serum or plasma anion gap de terminationon 05-28-2024 Anion gap [Moles/Vol] 15.4 mmol/L [facility] [place] Anion gap [Moles/Vol] Serum or plasma an ion gap determination [facility] Digoxin [Mass/volume] in Ser um or PlasmaOrdered By: Maxwell Medrnao on 04-24-2024 Digoxin [Mass/Vol] 1.8 ng/mL 0.9-2.0 [facility] Comment on above: Last dose: - Digoxin [Mass/Vol] Digoxin [Mass/volume ] in Serum or Plasma 0.9-2.0 [facility] Comment on above: Last dose: - ECG 12 Leadon 04-24-2024 Rhythm appears to be atrial fibrillation with slightly elevated heart CPACS [facility] Work Phone: Thyrotropin [Units/volume] i n Serum or PlasmaOrdered By: Maxwell Medrano on 04-24-2024 TSH Qn 1.25 m[IU]/L 0.45-5.33 [facility] TSH Qn Thyrotropin [Units/v olume] in Serum or Plasma 0.45-5.33 [facility] ECG 12 lead (Clinic Performe d)on 04-17-2024 EKG performed today shows atrial flutter atypical at a rate of 83 bpm QRS duration 70 ms QT corrected 450 ms. Rhythm strip shows the same pattern. [facility] Work Phone: [facility] Work Phone: Laboratory - Chemistry and C hemistry - challengeon 04-08-2024 Bilirubin Ql (U) Negative [facility] Glucose (U) [Mass/Vol] Negative [facility] Ketones Ql (U) Negative [facility] pH (U) 5.0 [pH] [facility] Specific gravity (U) [Rel density] 1.015 [facility] Urobilinogen (U) [Mass/Vol] 0.2 mg/dL [facility] Laboratory - Specimen inform ationon 04-08-2024 Appearance (U) clear [facility] Color (U) yellow [facility] Laboratory - Urinalysison Leukocyte esterase Test strip Ql (U) Negative [facility] Nitrite Ql (U) Negative [facility] Protein Ql (U) ++ [facility] No Panel Informationon 04-08 Urine Occult Blood Negative [facility] ECG 12-LEADon 03-27-2024 ECG 12-LEAD Ventricular Rate 83 Atrial Rate 83 P-R Interval 200 QRS Duration 78 Q-T Interval 386 QTC Calculation(Bazett) 453 P Monroe 132 R Monroe 1 T Monroe 185 QRS Count 13 Q Onset 224 [...] Asencio ([id number]) on 03/29/2024 12:51:06 PM Normal [facility] ECG 12-LEAD Ventricular Rate 84 Atrial Rate 267 QRS Duration 84 Q-T Interval 312 QTC Calculation(Bazett) 368 R Monroe 6 T Monroe 192 QRS Count 14 Q Onset 221 P Onset 124 P Offset 162 T Offset 377 QTC Fredericia 348 Diagnosis atypical atrial flutter Cannot rule out Anterior infarct , age undetermined ST & T wave abnormality, consider inferolateral ischemia Abnormal ECG Confirmed by Maxwell Medrano ([id number]) on 03/27/2024 9:02:15 AM Normal [facility] ECG 12-LEADon 03-26-2024 ECG 12-LEAD Ventricular Rate 83 Atrial Rate 83 P-R Interval 212 QRS Duration 82 Q-T Interval 370 QTC Calculation(Bazett) 434 P Monroe 74 R Monroe 1 T Monroe 196 QRS Count 13 Q Onset 223 P Onset 117 P Offset 156 T Offset 408 QTC Fredericia 412 Diagnosis atypical atrial flutter ST & T wave abnormality, consider inferior ischemia ST & T wave abnormality, consider anterolateral ischemia Abnormal ECG Reconfirmed by Maxwell Medrano ([id number]) on 03/26/2024 5:02:48 PM Normal [facility] ECG 12-LEAD Ventricular Rate 82 Atrial Rate 82 P-R Interval 204 QRS Duration 78 Q-T Interval 356 QTC Calculation(Bazett) 415 P Monroe 95 R Monroe 9 T Monroe 194 QRS Count 14 Q Onset 221 P Onset 119 P Offset 154 T Offset 399 QTC Fredericia 395 Diagnosis atypical atrial flutter ST & T wave abnormality, consider inferior ischemia ST & T wave abnormality, consider anterolateral ischemia Abnormal ECG Reconfirmed by Maxwell Medrano ([id number]) on 03/26/2024 5:02:17 PM Normal [facility] ECG 12-LEAD Ventricular Rate 82 Atrial Rate 82 P-R Interval 198 QRS Duration 84 Q-T Interval 388 QTC Calculation(Bazett) 453 P Monroe 97 R Monroe 5 T Monroe 199 QRS Count 13 Q Onset 220 P Onset 121 P Offset 159 T Offset 414 QTC Fredericia 430 Diagnosis atypical atrial flutter ST & T wave abnormality, consider inferolateral ischemia Abnormal ECG Reconfirmed by Maxwell Medrano ([id number]) on 03/26/2024 5:01:47 PM Normal [facility] ECG 12-LEADon 03-25-2024 ECG 12-LEAD Ventricular Rate 70 Atrial Rate 70 P-R Interval 204 QRS Duration 76 Q-T Interval 384 QTC Calculation(Bazett) 414 R Monroe -4 T Monroe 191 QRS Count 12 Q Onset 226 T Offset 418 QTC Fredericia 404 Diagnosis Atrial-paced rhythm Inferior infarct , age undetermined Cannot rule out Anterior infarct , age undetermined ST & T wave abnormality, consider lateral ischemia Abnormal ECG When compared with ECG of 25-MAR-2024 08:52, No significant change was found Confirmed by Maxwell Medrano ([id number]) on 03/26/2024 5:00:38 PM Normal [facility] ECG 12-LEAD Ventricular Rate 70 Atrial Rate 69 P-R Interval 200 QRS Duration 76 Q-T Interval 400 QTC Calculation(Bazett) 432 R Monroe 1 T Monroe 189 QRS Count 11 Q Onset 220 T Offset 420 QTC Fredericia 421 Diagnosis Atrial-paced rhythm ST & T wave abnormality, consider inferior ischemia ST & T wave abnormality, consider anterolateral ischemia Abnormal ECG Confirmed by Maxwell Medrano ([id number]) on 03/25/2024 10:00:04 AM Normal [facility] ECG 12-LEAD Ventricular Rate 84 Atrial Rate 84 P-R Interval 206 QRS Duration 82 Q-T Interval 348 QTC Calculation(Bazett) 411 P Monroe 90 R Monroe -11 T Monroe 181 QRS Count 13 Q Onset 225 P Onset 122 P Offset 165 T Offset 399 QTC Fredericia 389 Diagnosis Atypical atrial flutter Inferior infarct , age undetermined ST & T wave abnormality, consider anterolateral ischemia Abnormal ECG Confirmed by Maxwell Medrano ([id number]) on 03/25/2024 9:59:54 AM Normal [facility] ECG 12-LEAD Ventricular Rate 93 Atrial Rate 93 P-R Interval 90 QRS Duration 80 Q-T Interval 368 QTC Calculation(Bazett) 457 R Monroe 13 T Monroe 213 QRS Count 15 Q Onset 221 P Onset 176 P Offset 198 T Offset 405 QTC Fredericia 426 Diagnosis atypical atrial flutter ST & T wave abnormality, consider inferior ischemia ST & T wave abnormality, consider anterolateral ischemia Abnormal ECG Confirmed by Maxwell Medrano ([id number]) on 03/25/2024 9:59:32 AM Normal [facility] ECG 12-LEADon 03-24-2024 ECG 12-LEAD Ventricular Rate 87 Atrial Rate 267 QRS Duration 74 Q-T Interval 324 QTC Calculation(Bazett) 389 R Monroe -7 T Monroe 194 QRS Count 15 Q Onset 221 T Offset 383 QTC Fredericia 366 Diagnosis Atrial fibrillation with occasional ventricular-paced complexes Inferior infarct , age undetermined ST & T wave abnormality, consider lateral ischemia Abnormal ECG When compared with ECG of 23-MAR-2024 12:21, (unconfirmed) Vent. rate has increased BY 10 BPM Confirmed by Katie Asencio ([id number]) on 03/24/2024 5:29:54 PM Normal [facility] ECG 12-LEADon 03-23-2024 ECG 12-LEAD Ventricular Rate 77 Atrial Rate 394 QRS Duration 76 Q-T Interval 324 QTC Calculation(Bazett) 366 R Monroe -2 T Monroe 190 QRS Count 12 Q Onset 221 T Offset 383 QTC Fredericia 352 Diagnosis Atrial fibrillation with frequent ventricular-paced complexes Inferior infarct , age undetermined Cannot rule out Anterior infarct , age undetermined ST & T wave abnormality, consider lateral ischemia Abnormal ECG When compared with ECG of 23-MAR-2024 06:23, (unconfirmed) Vent. rate has decreased BY 6 BPM Confirmed by Katie James ([id number]) on 03/24/2024 10:23:54 AM Normal [facility] ECG 12-LEAD Ventricular Rate 83 Atrial Rate 394 QRS Duration 74 Q-T Interval 330 QTC Calculation(Bazett) 387 R Monroe -7 T Monroe 181 QRS Count 14 Q Onset 221 T Offset 386 QTC Fredericia 367 Diagnosis Atrial fibrillation with frequent ventricular-paced complexes Inferior infarct , age undetermined ST & T wave abnormality, consider anterolateral ischemia Abnormal ECG When compared with ECG of 22-MAR-2024 11:37, (unconfirmed) Electronic ventricular 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 Sinus rhythm Confirmed by Katie James ([id number]) on 03/24/2024 10:23:04 AM Normal [facility] ECG 12-LEADon 03-22-2024 ECG 12-LEAD Ventricular Rate 89 Atrial Rate 89 P-R Interval 194 QRS Duration 84 Q-T Interval 328 QTC Calculation(Bazett) 399 P Monroe 99 R Monroe -2 T Monroe 187 QRS Count 15 Q Onset 222 P Onset 125 P Offset 163 T Offset 386 QTC Fredericia 373 Diagnosis Normal sinus rhythm ST & T wave abnormality, consider inferolateral ischemia Abnormal ECG No previous ECGs available Confirmed by Katie James ([id number]) on 03/24/2024 10:22:29 AM Normal [facility] Basophils Auto (Bld) [#/Vol] on 03-21-2024 Basophils (Bld) [#/Vol] 0.0 10 3/uL 0.0-0.1 [facility] Basophils/100 WBC Auto (Bld) on 03-21-2024 Basophils/100 WBC (Bld) 0.3 % 0.2-2.0 [facility] Eosinophils/100 WBC Auto (Bl d)on 03-21-2024 Eosinophils/100 WBC (Bld) 0.7 % Low 0.9-7.0 [facility] Erythrocyte distribution wid th Auto (RBC) [Ratio]on 03-21-2024 Erythrocyte distribution width (RBC) [Ratio] 15.0 % 11.0-15.0 [facility] Estimated glomerular filtrat ion rate (GFR) non- Americanon 03-21-2024 GFR/1.73 sq M.predicted among non-blacks MDRD (S/P/Bld) [Vol rate/Area] 45 mL/min/{1.73_m2} Low >=60 [facility] Hematocrit Auto (Bld) [Volum e fraction]on 03-21-2024 Hematocrit (Bld) [Volume fraction] 37.3 % 36.0-48.0 [facility] Hemoglobin [Mass/volume] in Bloodon 03-21-2024 Hemoglobin (Bld) [Mass/Vol] 12.6 g/dL 12.0-16.0 [facility] Laboratory - Chemistry and C hemistry - challengeon 03-21-2024 Calcium [Mass/Vol] 9.0 mg/dL 8.5-10.1 [facility] Chloride [Moles/Vol] 105 mmol/L 98-107 [facility] CO2 [Moles/Vol] 25.7 mmol/L 21.0-32.0 [facility] Creatinine [Mass/Vol] 1.16 mg/dL High 0.55-1.02 [facility] GFR/1.73 sq M.predicted MDRD (S/P/Bld) [Vol rate/Area] 54 mL/min/{1.73_m2} Low >=60 [facility] Glucose [Mass/Vol] 127 mg/dL High 74-106 [facility] Potassium [Moles/Vol] 3.9 mmol/L 3.5-5.1 [facility] Sodium [Moles/Vol] 139 mmol/L 136-145 [facility] Urea nitrogen [Mass/Vol] 26.0 mg/dL High 7.0-18.0 [facility] Urea nitrogen/Creatinine [Mass ratio] 22.4 mg/mg [facility] Laboratory - Hematology and Cell countson 03-21-2024 Immature granulocytes/100 WBC (Bld) 0.6 % High 0.0-0.5 [facility] Leukocytes [#/volume] correc anne marie for nucleated erythrocytes in Blood by Automated counon 03-21-2024 WBC corrected for nucl RBC Auto (Bld) [#/Vol] 6.8 10 3/uL 4.0-11.0 [facility] Lymphocytes Auto (Bld) [#/Vo l]on 03-21-2024 Lymphocytes (Bld) [#/Vol] 1.8 10 3/uL 1.2-3.8 [facility] Lymphocytes/100 WBC Auto (Bl d)on 03-21-2024 Lymphocytes/100 WBC (Bld) 26.9 % 20.5-60.0 [facility] MCH Auto (RBC) [Entitic mass ]on 03-21-2024 MCH (RBC) [Entitic mass] 33.2 pg 26.7-34.0 [facility] MCHC Auto (RBC) [Mass/Vol]on 03-21-2024 MCHC (RBC) [Mass/Vol] 33.8 g/dL 29.9-35.2 [facility] MCV Auto (RBC) [Entitic vol] on 03-21-2024 MCV (RBC) [Entitic vol] 98.2 fL 81.0-99.0 [facility] Monocytes Auto (Bld) [#/Vol] on 03-21-2024 Monocytes (Bld) [#/Vol] 0.5 10 3/uL 0.3-0.8 [facility] Monocytes/100 WBC Auto (Bld) on 03-21-2024 Monocytes/100 WBC (Bld) 6.9 % 1.7-12.0 [facility] Neutrophils Auto (Bld) [#/Vo l]on 03-21-2024 Neutrophils (Bld) [#/Vol] 4.4 10 3/uL 1.4-6.5 [facility] Neutrophils/100 WBC Auto (Bl d)on 03-21-2024 Neutrophils/100 WBC (Bld) 64.6 % 43.0-75.0 [facility] No Panel Informationon 03-21 Troponin I High Sensitivity 96.6 pg/mL High 4.0-51.3 [facility] Comment on above: RESULTS CALLED TO [...] # (Auto) 0.1 10 3/uL 0.0-0.7 [facility] Immature Granulocyte # (Auto) 0.04 10 3/uL High 0.00-0.03 [facility] Platelet mean volume Auto (B ld) [Entitic vol]on 03-21-2024 Platelet mean volume (Bld) [Entitic vol] 10.0 fL 9.5-13.5 [facility] Platelets Auto (Bld) [#/Vol] on 03-21-2024 Platelets (Bld) [#/Vol] 222 10 3/uL 150-450 [facility] RBC Auto (Bld) [#/Vol]on RBC (Bld) [#/Vol] 3.80 10 6/uL Low 4.20-5.40 [facility] Serum or plasma anion gap de terminationon 03-21-2024 Anion gap [Moles/Vol] 12.2 mmol/L [facility] ECG 12 Leadon 02-28-2024 [facility] Work Phone: EKG performed today shows atrial flutter atypical at a rate of 95 bpm QRS duration 76 ms QT corrected 402 ms. Rhythm strip shows the same pattern. [facility] Work Phone: [facility] Work Phone: ECG 12 Leadon 02-25-2024 [facility]rial flutter with [facility] Basophils Auto (Bld) [#/Vol] on 02-08-2024 Basophils (Bld) [#/Vol] 0.0 10 3/uL 0.0-0.1 [facility] Basophils/100 WBC Auto (Bld) on 02-08-2024 Basophils/100 WBC (Bld) 0.1 % Low 0.2-2.0 [facility] Eosinophils/100 WBC Auto (Bl d)on 02-08-2024 Eosinophils/100 WBC (Bld) 0.2 % Low 0.9-7.0 [facility] Erythrocyte distribution wid th Auto (RBC) [Ratio]on 02-08-2024 Erythrocyte distribution width (RBC) [Ratio] 13.9 % 11.0-15.0 [facility] Estimated glomerular filtrat ion rate (GFR) non- Americanon 02-08-2024 GFR/1.73 sq M.predicted among non-blacks MDRD (S/P/Bld) [Vol rate/Area] mL/min/{1.73_m2} >=60 [facility] Globulin Calc (S) [Mass/Vol] on 02-08-2024 Globulin (S) [Mass/Vol] 3.0 g/dL [facility] Hematocrit Auto (Bld) [Volum e fraction]on 02-08-2024 Hematocrit (Bld) [Volume fraction] 40.7 % 36.0-48.0 [facility] Hemoglobin [Mass/volume] in Bloodon 02-08-2024 Hemoglobin (Bld) [Mass/Vol] 13.6 g/dL 12.0-16.0 [facility] Laboratory - Chemistry and C hemistry - challengeon 02-08-2024 Albumin [Mass/Vol] 2.8 g/dL Low 3.4-5.0 [facility] ALP [Catalytic activity/Vol] 85 U/L 46-116 [facility] ALT [Catalytic activity/Vol] 32 U/L 14-59 [facility] AST [Catalytic activity/Vol] 20 U/L 15-37 [facility] Bilirubin [Mass/Vol] 0.7 mg/dL 0.2-1.0 [facility] Calcium [Mass/Vol] 9.0 mg/dL 8.5-10.1 [facility] Chloride [Moles/Vol] 103 mmol/L 98-107 [facility] CO2 [Moles/Vol] 27.1 mmol/L 21.0-32.0 [facility] Creatinine [Mass/Vol] 0.82 mg/dL 0.55-1.02 [facility] GFR/1.73 sq M.predicted MDRD (S/P/Bld) [Vol rate/Area] mL/min/{1.73_m2} >=60 [facility] Glucose [Mass/Vol] 122 mg/dL High 74-106 [facility] Potassium [Moles/Vol] 4.6 mmol/L 3.5-5.1 [facility] Protein [Mass/Vol] 5.8 g/dL Low 6.4-8.2 [facility] Sodium [Moles/Vol] 135 mmol/L Low 136-145 [facility] Urea nitrogen [Mass/Vol] 30.0 mg/dL High 7.0-18.0 [facility] Urea nitrogen/Creatinine [Mass ratio] 36.6 mg/mg [facility] Laboratory - Hematology and Cell countson 02-08-2024 Immature granulocytes/100 WBC (Bld) 1.6 % High 0.0-0.5 [facility] Leukocytes [#/volume] correc anne marie for nucleated erythrocytes in Blood by Automated counon 02-08-2024 WBC corrected for nucl RBC Auto (Bld) [#/Vol] 12.9 10 3/uL High 4.0-11.0 [facility] Lymphocytes Auto (Bld) [#/Vo l]on 02-08-2024 Lymphocytes (Bld) [#/Vol] 0.9 10 3/uL Low 1.2-3.8 [facility] Lymphocytes/100 WBC Auto (Bl d)on 02-08-2024 Lymphocytes/100 WBC (Bld) 6.7 % Low 20.5-60.0 [facility] MCH Auto (RBC) [Entitic mass ]on 02-08-2024 MCH (RBC) [Entitic mass] 31.1 pg 26.7-34.0 [facility] MCHC Auto (RBC) [Mass/Vol]on 02-08-2024 MCHC (RBC) [Mass/Vol] 33.4 g/dL 29.9-35.2 [facility] MCV Auto (RBC) [Entitic vol] on 02-08-2024 MCV (RBC) [Entitic vol] 93.1 fL 81.0-99.0 [facility] Monocytes Auto (Bld) [#/Vol] on 02-08-2024 Monocytes (Bld) [#/Vol] 0.6 10 3/uL 0.3-0.8 [facility] Monocytes/100 WBC Auto (Bld) on 02-08-2024 Monocytes/100 WBC (Bld) 4.6 % 1.7-12.0 [facility] Neutrophils Auto (Bld) [#/Vo l]on 02-08-2024 Neutrophils (Bld) [#/Vol] 11.2 10 3/uL High 1.4-6.5 [facility] Neutrophils/100 WBC Auto (Bl d)on 02-08-2024 Neutrophils/100 WBC (Bld) 86.8 % High 43.0-75.0 [facility] No Panel Informationon 02-07 Eosinophils # (Auto) 0.0 10 3/uL 0.0-0.7 [facility] Immature Granulocyte # (Auto) 0.21 10 3/uL High 0.00-0.03 [facility] Platelet mean volume Auto (B ld) [Entitic vol]on 02-08-2024 Platelet mean volume (Bld) [Entitic vol] 10.4 fL 9.5-13.5 [facility] Platelets Auto (Bld) [#/Vol] on 02-08-2024 Platelets (Bld) [#/Vol] 204 10 3/uL 150-450 [facility] RBC Auto (Bld) [#/Vol]on RBC (Bld) [#/Vol] 4.37 10 6/uL 4.20-5.40 [facility] Serum or plasma albumin/glob ulin mass ratioon 02-08-2024 Albumin/Globulin [Mass ratio] 0.9 {ratio} [facility] Serum or plasma anion gap de terminationon 02-08-2024 Anion gap [Moles/Vol] 9.5 mmol/L [facility] Basophils Auto (Bld) [#/Vol] on 02-07-2024 Basophils (Bld) [#/Vol] 0.0 10 3/uL 0.0-0.1 [facility] Basophils/100 WBC Auto (Bld) on 02-07-2024 Basophils/100 WBC (Bld) 0.1 % Low 0.2-2.0 [facility] Eosinophils/100 WBC Auto (Bl d)on 02-07-2024 Eosinophils/100 WBC (Bld) 0.2 % Low 0.9-7.0 [facility] Erythrocyte distribution wid th Auto (RBC) [Ratio]on 02-07-2024 Erythrocyte distribution width (RBC) [Ratio] 14.1 % 11.0-15.0 [facility] Estimated glomerular filtrat ion rate (GFR) non- Americanon 02-07-2024 GFR/1.73 sq M.predicted among non-blacks MDRD (S/P/Bld) [Vol rate/Area] 51 mL/min/{1.73_m2} Low >=60 [facility] Globulin Calc (S) [Mass/Vol] on 02-07-2024 Globulin (S) [Mass/Vol] 3.2 g/dL [facility] Hematocrit Auto (Bld) [Volum e fraction]on 02-07-2024 Hematocrit (Bld) [Volume fraction] 46.3 % 36.0-48.0 [facility] Hemoglobin [Mass/volume] in Bloodon 02-07-2024 Hemoglobin (Bld) [Mass/Vol] 15.3 g/dL 12.0-16.0 [facility] Laboratory - Chemistry and C hemistry - challengeon 02-07-2024 Bilirubin Ql (U) Negative NEGATIVE [facility] Glucose (U) [Mass/Vol] Negative NEGATIVE [facility] Ketones Ql (U) Negative NEGATIVE [facility] pH (U) 6.0 [pH] 5.0-9.0 [facility] Specific gravity (U) [Rel density] >=1.030 Abnormal 1.005-1.02 5 [facility] Urobilinogen Qn (U) 1.0 {Sherrell'U}/dL 0.2-1.0 [facility] Albumin [Mass/Vol] 3.1 g/dL Low 3.4-5.0 [facility] ALP [Catalytic activity/Vol] 107 U/L 46-116 [facility] ALT [Catalytic activity/Vol] 38 U/L 14-59 [facility] AST [Catalytic activity/Vol] 19 U/L 15-37 [facility] Bilirubin [Mass/Vol] 0.7 mg/dL 0.2-1.0 [facility] Bilirubin.direct [Mass/Vol] 0.2 mg/dL 0.0-0.2 [facility] Lipase [Catalytic activity/Vol] 66.0 U/L 16.0-77.0 [facility] Natriuretic peptide B (Bld) [Mass/Vol] 1679.0 pg/mL <=1800.0 [facility] Protein [Mass/Vol] 6.3 g/dL Low 6.4-8.2 [facility] Calcium [Mass/Vol] 9.3 mg/dL 8.5-10.1 [facility] Chloride [Moles/Vol] 104 mmol/L 98-107 [facility] CO2 [Moles/Vol] 25.4 mmol/L 21.0-32.0 [facility] Creatinine [Mass/Vol] 1.03 mg/dL High 0.55-1.02 [facility] GFR/1.73 sq M.predicted MDRD (S/P/Bld) [Vol rate/Area] mL/min/{1.73_m2} >=60 [facility] Glucose [Mass/Vol] 137 mg/dL High 74-106 [facility] Potassium [Moles/Vol] 4.6 mmol/L 3.5-5.1 [facility] Sodium [Moles/Vol] 137 mmol/L 136-145 [facility] Urea nitrogen [Mass/Vol] 35.0 mg/dL High 7.0-18.0 [facility] Urea nitrogen/Creatinine [Mass ratio] 34.0 mg/mg [facility] Laboratory - Hematology and Cell countson 02-07-2024 Immature granulocytes/100 WBC (Bld) 1.6 % High 0.0-0.5 [facility] Laboratory - Specimen inform ationon 02-07-2024 Appearance (U) CLEAR CLEAR [facility] Color (U) YELLOW YELLOW [facility] Laboratory - Urinalysison Leukocyte esterase Test strip Ql (U) Negative NEGATIVE [facility] Nitrite Ql (U) Negative NEGATIVE [facility] Protein Ql (U) TRACE mg/dL NEG/TRACE [facility] Leukocytes [#/volume] correc anne marie for nucleated erythrocytes in Blood by Automated counon 02-07-2024 WBC corrected for nucl RBC Auto (Bld) [#/Vol] 18.4 10 3/uL High 4.0-11.0 [facility] Lymphocytes Auto (Bld) [#/Vo l]on 06-20-2024 Lymphocytes (Bld) [#/Vol] 1.0 10 3/uL Low 1.2-3.8 [facility] Lymphocytes/100 WBC Auto (Bl d)on 02-07-2024 Lymphocytes/100 WBC (Bld) 5.4 % Low 20.5-60.0 [facility] MCH Auto (RBC) [Entitic mass ]on 02-07-2024 MCH (RBC) [Entitic mass] 31.0 pg 26.7-34.0 [facility] MCHC Auto (RBC) [Mass/Vol]on 02-07-2024 MCHC (RBC) [Mass/Vol] 33.0 g/dL 29.9-35.2 [facility] MCV Auto (RBC) [Entitic vol] on 02-07-2024 MCV (RBC) [Entitic vol] 93.7 fL 81.0-99.0 [facility] Monocytes Auto (Bld) [#/Vol] on 02-07-2024 Monocytes (Bld) [#/Vol] 1.0 10 3/uL High 0.3-0.8 [facility] Monocytes/100 WBC Auto (Bld) on 02-07-2024 Monocytes/100 WBC (Bld) 5.4 % 1.7-12.0 [facility] Neutrophils Auto (Bld) [#/Vo l]on 02-07-2024 Neutrophils (Bld) [#/Vol] 16.1 10 3/uL High 1.4-6.5 [facility] Neutrophils/100 WBC Auto (Bl d)on 02-07-2024 Neutrophils/100 WBC (Bld) 87.3 % High 43.0-75.0 [facility] No Panel Informationon 02-06 Urine Microscopic Review NO [facility] Urine Occult Blood Negative NEGATIVE [facility] Troponin I High Sensitivity 50.2 pg/mL 4.0-51.3 [facility] Comment on above: CUT-OFF POINTS HAVE [...] # (Auto) 0.0 10 3/uL 0.0-0.7 [facility] Immature Granulocyte # (Auto) 0.29 10 3/uL High 0.00-0.03 [facility] Platelet mean volume Auto (B ld) [Entitic vol]on 02-07-2024 Platelet mean volume (Bld) [Entitic vol] 10.1 fL 9.5-13.5 [facility] Platelets Auto (Bld) [#/Vol] on 02-07-2024 Platelets (Bld) [#/Vol] 260 10 3/uL 150-450 [facility] RBC Auto (Bld) [#/Vol]on RBC (Bld) [#/Vol] 4.94 10 6/uL 4.20-5.40 [facility] Serum or plasma albumin/glob ulin mass ratioon 02-07-2024 Albumin/Globulin [Mass ratio] 1.0 {ratio} [facility] Serum or plasma anion gap de terminationon 02-07-2024 Anion gap [Moles/Vol] 12.2 mmol/L [facility] ECG 12 Leadon 01-22-2024 Normal sinus rhythm with normal QTc interval [facility] Work Phone: Magnesium [Mass/volume] in S vaughn or PlasmaOrdered By: Izzy Capps on 01-19-2024 Magnesium [Mass/Vol] 1.9 mg/dL 1.9-2.7 [facility] Activated partial thrombopla stin time (aPTT) in platelet poor plasma by coagulation aOrdered By: Vic Mendez on 01-18-2024 aPTT Coag (PPP) [Time] 31.3 s 25.1-36.5 [facility] Comment on above: A hematocrit value g reater than 55% may lead to inaccurate results in coagulation testing. Patients having hematocrit values >55% require a special collection tube for coagulation studies. Please contact the laboratory at [phone] for redraw instructions. Alanine aminotransferase [En zymatic activity/volume] in Serum or PlasmaOrdered By: Vic Mendez on 01-18-2024 ALT [Catalytic activity/Vol] 29 U/L 7-52 [facility] Albumin [Mass/volume] in Ser um or Plasma by Bromocresol green (BCG) dye binding methoOrdered By: Vic Mendez on 01-18-2024 Albumin BCG dye [Mass/Vol] 3.7 g/dL 3.5-5.7 [facility] Alkaline phosphatase [Enzyma tic activity/volume] in Serum or PlasmaOrdered By: Vic Mendez on 01-18-2024 ALP [Catalytic activity/Vol] 63 U/L 34-104 [facility] Aspartate aminotransferase [ Enzymatic activity/volume] in Serum or PlasmaOrdered By: Vic Mendez on 01-18-2024 AST [Catalytic activity/Vol] 17 U/L 13-39 [facility] Basophils Auto (Bld) [#/Vol] Ordered By: Vic Mendez on 01-18-2024 Basophils (Bld) [#/Vol] 0.1 10*3/uL 0.0-0.2 [facility] Basophils/100 WBC Auto (Bld) Ordered By: Vic Mendez on 01-18-2024 Basophils/100 WBC (Bld) 0.5 % . [facility] Bilirubin.total [Mass/volume ] in Serum or PlasmaOrdered By: Vic Mendez on 01-18-2024 Bilirubin [Mass/Vol] 0.9 mg/dL 0.3-1.0 [facility] Calcium [Mass/volume] in Ser um or PlasmaOrdered By: Vic Mendez on 01-18-2024 Calcium [Mass/Vol] 9.2 mg/dL 8.6-10.3 [facility] Carbon dioxide, total [Moles /volume] in Serum or PlasmaOrdered By: Vic Mendez on 01-18-2024 CO2 [Moles/Vol] 23.4 mmol/L 21.0-31.0 [facility] Chloride [Moles/volume] in S vaughn or PlasmaOrdered By: Vic Mendez 01-18-2024 Chloride [Moles/Vol] 108 mmol/L High 98-107 [facility] Creatine kinase [Enzymatic a ctivity/volume] in Serum or PlasmaOrdered By: Vic Mendez on 01-18-2024 CK [Catalytic activity/Vol] 31 U/L 30-223 [facility] Creatinine [Mass/volume] in Serum or PlasmaOrdered By: Vic Mendez on 01-18-2024 Creatinine [Mass/Vol] 0.96 mg/dL 0.60-1.20 [facility] Eosinophils Auto (Bld) [#/Vo l]Ordered By: Vic Mendez on 01-18-2024 Eosinophils (Bld) [#/Vol] 0.1 10*3/uL 0.0-0.45 [facility] Eosinophils/100 WBC Auto (Bl d)Ordered By: Vic Mendez on 01-18-2024 Eosinophils/100 WBC (Bld) 1.2 % . [facility] Erythrocyte distribution wid th Auto (RBC) [Ratio]Ordered By: Vic Mendez on 01-18-2024 Erythrocyte distribution width (RBC) [Ratio] 14.1 % 11.9-15.3 [facility] Globulin Calc (S) [Mass/Vol] Ordered By: Vic Mendez 01-18-2024 Globulin (S) [Mass/Vol] 2.3 g/dL [facility] Glucose [Mass/volume] in Ser um or PlasmaOrdered By: Vic Mendez on 01-18-2024 Glucose [Mass/Vol] 102 mg/dL High 70-100 [facility] Comment on above: ADA recommended refe rence rangeRandom Glucose Reference Range is dependent on time and content of last meal. Glucose of more than 200 mg/dL in a nonstressed, ambulatory subject supports the diagnosis of Diabetes Mellitus. Hematocrit Auto (Bld) [Volum e fraction]Ordered By: Vic Mendez on 01-18-2024 Hematocrit (Bld) [Volume fraction] 45.9 % 34.0-46.4 [facility] Hemoglobin [Mass/volume] in BloodOrdered By: Vic Mendez 01-18-2024 Hemoglobin (Bld) [Mass/Vol] 15.5 g/dL High 11.8-15.4 [facility] INR in Platelet poor plasma by Coagulation assayOrdered By: Vic Mendez 01-18-2024 INR Coag (PPP) [Relative time] 1.5 {INR} [facility] Comment on above: INR Therapeutic Rang [...] RBC Auto (Bld) [#/Vol] 10.4 10*3/uL 3.8-11.6 [facility] Lymphocytes Auto (Bld) [#/Vo l]Ordered By: Vic Mendez on 01-18-2024 Lymphocytes (Bld) [#/Vol] 1.0 10*3/uL 1.00-4.8 [facility] Lymphocytes/100 WBC Auto (Bl d)Ordered By: Vic Mendez on 01-18-2024 Lymphocytes/100 WBC (Bld) 9.2 % . [facility] MCH Auto (RBC) [Entitic mass ]Ordered By: Vic Mendez on 01-18-2024 MCH (RBC) [Entitic mass] 31.2 pg 24.7-34.3 [facility] MCHC Auto (RBC) [Mass/Vol]Or dered By: Vic Mendez on 01-18-2024 MCHC (RBC) [Mass/Vol] 33.7 g/dL 32.0-35.0 [facility] MCV Auto (RBC) [Entitic vol] Ordered By: Vic Mendez on 01-18-2024 MCV (RBC) [Entitic vol] 92.6 fL 80-100 [facility] Magnesium [Mass/volume] in S vaughn or PlasmaOrdered By: Vic Mendez on 01-18-2024 Magnesium [Mass/Vol] 1.9 mg/dL 1.9-2.7 [facility] Monocyte distribution width [Entitic volume] in Blood by AutomatedOrdered By: Vic Mendez on 01-18-2024 Monocyte distribution width Auto (Bld) [Entitic vol] 18.06 % 0.00-20.00 [facility] Monocytes Auto (Bld) [#/Vol] Ordered By: Vic Mendez on 01-18-2024 Monocytes (Bld) [#/Vol] 0.8 10*3/uL 0.0-0.8 [facility] Monocytes/100 WBC Auto (Bld) Ordered By: Vic Mendez on 01-18-2024 Monocytes/100 WBC (Bld) 7.6 % . [facility] Neutrophils Auto (Bld) [#/Vo l]Ordered By: Vic Mendez on 01-18-2024 Neutrophils (Bld) [#/Vol] 8.5 10*3/uL High 1.8-7.7 [facility] Neutrophils/100 WBC Auto (Bl d)Ordered By: Vic Mendez on 01-18-2024 Neutrophils/100 WBC (Bld) 81.5 % . [facility] No Panel InformationOrdered By: Vic Mendez on 01-18-2024 Estimated GFR (CKD-EPI) 59.440 mL/Min [facility] Creatinine Clearance (Chem 40.09 [facility] Nucleated erythrocytes [Pres ence] in Blood by Automated countOrdered By: Vic Mendez on 01-18-2024 Nucleated RBC Auto Ql (Bld) 0.1 /100{WBC} 0-0.5 [facility] Platelet mean volume Auto (B ld) [Entitic vol]Ordered By: Vic Mendez on 01-18-2024 Platelet mean volume (Bld) [Entitic vol] 8.5 fL 6.3-10.7 [facility] Platelets Auto (Bld) [#/Vol] Ordered By: Vic Mendez on 01-18-2024 Platelets (Bld) [#/Vol] 205 10*3/uL 150-450 [facility] Potassium [Moles/volume] in Serum or PlasmaOrdered By: Vic Mendez on 01-18-2024 Potassium [Moles/Vol] 4.1 mmol/L 3.5-5.1 [facility] Protein [Mass/volume] in Ser um or PlasmaOrdered By: Vic Mendez on 01-18-2024 Protein [Mass/Vol] 6.0 g/dL Low 6.4-8.9 [facility] Prothrombin time (PT)Ordered By: Vic Mendez on 01-18-2024 PT Coag (PPP) [Time] 16.8 s High 9.0-12.9 [facility] Comment on above: A hematocrit value g reater than 55% may lead to inaccurate results in coagulation testing. Patients having hematocrit values >55% require a special collection tube for coagulation studies. Please contact the laboratory at [phone] for redraw instructions. RBC Auto (Bld) [#/Vol]Ordere d By: Vic Mendez on 01-18-2024 RBC (Bld) [#/Vol] 4.96 10*6/uL 3.60-5.00 [facility] Serum or plasma albumin/glob ulin mass ratioOrdered By: Vic Mendez on 01-18-2024 Albumin/Globulin [Mass ratio] 1.6 {ratio} [facility] Serum or plasma anion gap de terminationOrdered By: Vic Mendez on 01-18-2024 Anion gap [Moles/Vol] 11.7 mmol/L 6.0-15.0 [facility] Sodium [Moles/volume] in Ser um or PlasmaOrdered By: Vic Mendez on 01-18-2024 Sodium [Moles/Vol] 139 mmol/L 136-145 [facility] Thyrotropin [Units/volume] i n Serum or PlasmaOrdered By: Izzy Capps on 01-18-2024 TSH Qn 0.83 m[IU]/L 0.45-5.33 [facility] Troponin I.cardiac [Mass/vol ume] in Serum or Plasma by Detection limit <= 0.01 ng/Ordered By: Vic Mendez on 01-18-2024 Troponin I.cardiac DL <= 0.01 ng/mL [Mass/Vol] 14.7 pg/mL 0.0-15.0 [facility] Urea nitrogen [Mass/volume] in Serum or PlasmaOrdered By: Vic Mendez on 01-18-2024 Urea nitrogen [Mass/Vol] 29 mg/dL High 7-25 [facility] WBC Auto (Bld) [#/Vol]Ordere d By: Vic Mendez on 01-18-2024 WBC (Bld) [#/Vol] 10.4 10*3/uL 3.8-11.6 [facility] ECG 12 Leadon 09-19-2023 Rhythm appeared to b e atrial flutter with 2/ 1 AV block with nonspecific ST[facility]: US Heart Transthoracicon Aortic Valve Area by Continuity of Peak Velocity 2.36 [facility] Work Phone: [phone] Aortic Valve Area by Continuity of VTI 2.33 [facility] Work Phone: [phone] AV mn grad 2.0 [facility] Work Phone: [phone] AV pk grad 3.5 [facility] Work Phone: [phone] AV pk douglas 0.94 [facility] Work Phone: [phone] LV A4C EF 63.6 [facility] Work Phone: [phone] LVIDd 3.20 [facility] Work Phone: [phone] LVOT diam 1.90 [facility] Work Phone: [phone] MV avg E/e' ratio 20.20 [facility] Work Phone: [phone] RVSP 32.8 [facility] Work Phone: [address], [address] [place] [address] TRANSTHORACIC ECHOCARDIOGRAM REPORT Patient Name: AUSTIN Arriaga Physician: Zurdo Mac MD Study Date: 08/21/2023 Ordering Provider: Zurdo MAC MRN/PID: [id number] Fellow: Nurse: 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: Iqra Pham RDCS, RVT Gender: F Additional Staff: Height: 149.86 cm Admit Date: Weight: 74.84 kg Admission Status: BSA: 1.70 m2 Department Location: [facility] Blood Pressure: 116 /64 mmHg Study Type: TRANSTHORACIC ECHO (TTE) COMPLETE Diagnosis/ICD: Chronic diastolic (congestive) heart failure (CHF)-I50.32; Essential (primary) hypertension-I10; Dyspnea, unspecified-R06.00 Indication: Atrial Fibrillation, Sick Sinus Syndrome, Hyerlipidemia, Pacemaker, Overweight, CKD-Stage III CPT Codes: Echo Complete w Full Doppler-72709 Study Detail: The following Echo studies were [...] not included)... 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 [employer]ion: Iqra Pham RDCS, RVT Gender: F Additional Staff: Height: 149.86 cm Admit Date: Weight: 74.84 kg Admission Status: BSA: 1.70 m2 Department Location: [facility] Blood Pressure: 116 /64 mmHg Study Type: TRANSTHORACIC ECHO (TTE) COMPLETE Diagnosis/ICD: Chronic diastolic (congestive) heart failure (CHF)-I50.32; Essential (primary) hypertension-I10; Dyspnea, unspecified-R06.00 Indication: Atrial Fibrillation, Sick Sinus Syndrome, Hyerlipidemia, Pacemaker, Overweight, CKD-Stage III CPT Codes: Echo Complete w Full Doppler-[id number] Study Detail: The following Echo studies were [...] 0.7 m/s (0.6-0.9m/s) PV Max P.8 mmHg [id number] Debbie Mac MD Electronically signed on 08/22/2023 at 12:31:20 PM Final [facility] Work Phone: [facility] Work Phone: ECG 12 Leadon 05-31-2023 Paced atrial rhythm with normal QTc interval [facility] Work Phone: Alkaline phosphatase [Enzyma tic activity/volume] in Serum or PlasmaOrdered By: Wilbur Watson on 03-05-2023 ALP [Catalytic activity/Vol] 82 U/L 34-104 [facility] Amylase [Enzymatic activity/ volume] in Serum or PlasmaOrdered By: Wilbur Watson on 03-05-2023 Amylase [Catalytic activity/Vol] 32 U/L 29-103 [facility] Aspartate aminotransferase [ Enzymatic activity/volume] in Serum or PlasmaOrdered By: Wilbur Watson on 03-05-2023 AST [Catalytic activity/Vol] 19 U/L 13-39 [facility] Bilirubin.direct [Mass/volum e] in Serum or PlasmaOrdered By: Wilbur Watson on 03-05-2023 Bilirubin.direct [Mass/Vol] 0.20 mg/dL 0.03-0.18 [facility] Bilirubin.total [Mass/volume ] in Serum or PlasmaOrdered By: Wilbur Watson on 03-05-2023 Bilirubin [Mass/Vol] 0.7 mg/dL 0.3-1.0 [facility] Lipase [Enzymatic activity/v olume] in Serum or PlasmaOrdered By: Wilbur Watson on 03-05-2023 Lipase [Catalytic activity/Vol] 31.0 U/L 11.0-82.0 [facility] Serum or plasma non-glucuron idated bilirubin measurement (mass/volume)Ordered By: Wilbur Watson on 03-05-2023 Bilirubin.indirect [Mass/Vol] 0.5 mg/dL [facility] Basophils Auto (Bld) [#/Vol] Ordered By: Wilbur Watson on 02-26-2023 Basophils (Bld) [#/Vol] 0.0 10*3/uL 0.0-0.2 [facility] Basophils/100 WBC Auto (Bld) Ordered By: Wilbur Watson on 02-26-2023 Basophils/100 WBC (Bld) 0.5 % . [facility] Calcium [Mass/volume] in Ser um or PlasmaOrdered By: Wilbur Watson on 02-26-2023 Calcium [Mass/Vol] 9.0 mg/dL 8.6-10.3 [facility] Carbon dioxide, total [Moles /volume] in Serum or PlasmaOrdered By: Wilbur Watson on 02-26-2023 CO2 [Moles/Vol] 24.7 mmol/L 21.0-31.0 [facility] Chloride [Moles/volume] in S vaughn or PlasmaOrdered By: Wilbur Watson on 02-26-2023 Chloride [Moles/Vol] 108 mmol/L 98-107 [facility] Creatinine [Mass/volume] in Serum or PlasmaOrdered By: Wilbur Watson on 02-26-2023 Creatinine [Mass/Vol] 1.03 mg/dL 0.60-1.20 [facility] Eosinophils Auto (Bld) [#/Vo l]Ordered By: Wilbur Watson on 02-26-2023 Eosinophils (Bld) [#/Vol] 0.2 10*3/uL 0.0-0.45 [facility] Eosinophils/100 WBC Auto (Bl d)Ordered By: Wilbur Watson on 02-26-2023 Eosinophils/100 WBC (Bld) 2.2 % . [facility] Erythrocyte distribution wid th Auto (RBC) [Ratio]Ordered By: Wilbur Watson on 02-26-2023 Erythrocyte distribution width (RBC) [Ratio] 13.8 % 11.9-15.3 [facility] Glucose [Mass/volume] in Ser um or PlasmaOrdered By: Wilbur Watson on 02-26-2023 Glucose [Mass/Vol] 81 mg/dL 70-100 [facility] Comment on above: ADA recommended refe rence rangeRandom Glucose Reference Range is dependent on time and content of last meal. Glucose of more than 200 mg/dL in a nonstressed, ambulatory subject supports the diagnosis of Diabetes Mellitus. Hematocrit Auto (Bld) [Volum e fraction]Ordered By: Wilbur Watson on 02-26-2023 Hematocrit (Bld) [Volume fraction] 44.1 % 34.0-46.4 [facility] Hemoglobin [Mass/volume] in BloodOrdered By: Wilbur Watson on 02-26-2023 Hemoglobin (Bld) [Mass/Vol] 14.9 g/dL 11.8-15.4 [facility] Leukocytes [#/volume] correc anne marie for nucleated erythrocytes in Blood by Automated counOrdered By: Wilbur Watson on 02-26-2023 WBC corrected for nucl RBC Auto (Bld) [#/Vol] 8.3 10*3/uL 3.8-11.6 [facility] Lymphocytes Auto (Bld) [#/Vo l]Ordered By: Wilbur Watson on 02-26-2023 Lymphocytes (Bld) [#/Vol] 0.9 10*3/uL 1.00-4.8 [facility] Lymphocytes/100 WBC Auto (Bl d)Ordered By: Wilbur Watson on 02-26-2023 Lymphocytes/100 WBC (Bld) 10.3 % . [facility] MCH Auto (RBC) [Entitic mass ]Ordered By: Wilbur Watson on 02-26-2023 MCH (RBC) [Entitic mass] 30.5 pg 24.7-34.3 [facility] MCHC Auto (RBC) [Mass/Vol]Or dered By: Wilbur Watson on 02-26-2023 MCHC (RBC) [Mass/Vol] 33.8 g/dL 32.0-35.0 [facility] MCV Auto (RBC) [Entitic vol] Ordered By: Wilbur Watson on 02-26-2023 MCV (RBC) [Entitic vol] 90.4 fL 80-100 [facility] Monocytes Auto (Bld) [#/Vol] Ordered By: Wilbur Watson on 02-26-2023 Monocytes (Bld) [#/Vol] 0.6 10*3/uL 0.0-0.8 [facility] Monocytes/100 WBC Auto (Bld) Ordered By: Wilbur Watson on 02-26-2023 Monocytes/100 WBC (Bld) 7.1 % . [facility] Neutrophils Auto (Bld) [#/Vo l]Ordered By: Wilbur Watson on 02-26-2023 Neutrophils (Bld) [#/Vol] 6.6 10*3/uL 1.8-7.7 [facility] Neutrophils/100 WBC Auto (Bl d)Ordered By: Wilbur Watson on 02-26-2023 Neutrophils/100 WBC (Bld) 79.9 % . [facility] No Panel InformationOrdered By: Wilbur Watson on 02-26-2023 Estimated GFR (CKD-EPI) 54.967 mL/Min [facility] Creatinine Clearance (Chem N/A [facility] Nucleated erythrocytes [Pres ence] in Blood by Automated countOrdered By: Wilbur Watson on 02-26-2023 Nucleated RBC Auto Ql (Bld) 0.0 /100{WBC} 0-0.5 [facility] Platelet mean volume Auto (B ld) [Entitic vol]Ordered By: Wilbur Watson on 02-26-2023 Platelet mean volume (Bld) [Entitic vol] 8.9 fL 6.3-10.7 [facility] Platelets Auto (Bld) [#/Vol] Ordered By: Wilbur Watson on 02-26-2023 Platelets (Bld) [#/Vol] 194 10*3/uL 150-450 [facility] Potassium [Moles/volume] in Serum or PlasmaOrdered By: Wilbur Watson on 02-26-2023 Potassium [Moles/Vol] 4.3 mmol/L 3.5-5.1 [facility] RBC Auto (Bld) [#/Vol]Ordere d By: Wilbur Watson on 02-26-2023 RBC (Bld) [#/Vol] 4.88 10*6/uL 3.60-5.00 [facility] Serum or plasma anion gap de terminationOrdered By: Wilbur Watson on 02-26-2023 Anion gap [Moles/Vol] 12.6 mmol/L 6.0-15.0 [facility] Sodium [Moles/volume] in Ser um or PlasmaOrdered By: Wilbur Watson on 02-26-2023 Sodium [Moles/Vol] 141 mmol/L 136-145 [facility] Urea nitrogen [Mass/volume] in Serum or PlasmaOrdered By: Wilbur Watson on 02-26-2023 Urea nitrogen [Mass/Vol] 32 mg/dL 7-25 [facility] WBC Auto (Bld) [#/Vol]Ordere d By: Wilbur Watson on 02-26-2023 WBC (Bld) [#/Vol] 8.3 10*3/uL 3.8-11.6 [facility] Falls Screening (Age 18+)on 01-25-2023 Fall risk assessment a) No falls within the last year [facility] Work Phone: Tobacco use status CPHS b) No [facility] Work Phone: Office Visit (Cardiology)on 01-25-2023 [...] TABLET B (more content not included)... Normal [employer] Activated partial thrombopla stin time (aPTT) in platelet poor plasma by coagulation aOrdered By: Debbie Mac on 01-09-2023 aPTT Coag (PPP) [Time] 19.5 s 25.1-36.5 [facility] Basophils Auto (Bld) [#/Vol] Ordered By: Debbie Mac on 01-09-2023 Basophils (Bld) [#/Vol] 0.0 10*3/uL 0.0-0.2 [facility] Basophils/100 WBC Auto (Bld) Ordered By: Debbie Mac on 01-09-2023 Basophils/100 WBC (Bld) 0.6 % . [facility] Carbon dioxide, total [Moles /volume] in Serum or PlasmaOrdered By: Debbie Mac on 01-09-2023 CO2 [Moles/Vol] 25.6 mmol/L 21.0-31.0 [facility] Chloride [Moles/volume] in S vaughn or PlasmaOrdered By: Debbie Mac on 01-09-2023 Chloride [Moles/Vol] 106 mmol/L 98-107 [facility] Cholesterol [Mass/volume] in Serum or PlasmaOrdered By: Debbie Mac on 01-09-2023 Cholesterol [Mass/Vol] 135 mg/dL 140-200 [facility] Comment on above: Chol less than 200 m g/dl low riskChol 201-239 mg/dl borderline riskChol 240 mg/dl and greater high risk Cholesterol in LDL Calc [Mas s/Vol]Ordered By: Debbie Mac on 01-09-2023 Cholesterol in LDL [Mass/Vol] 45 mg/dL 0-100 [facility] Comment on above: LDL ATP III CLASSIFI CATIONLDL less than 100 mg/dL OptimalLDL 100-129 mg/dL Near or above optimalLDL 130-159 mg/dL Borderline highLDL 160-189 mg/dL HighLDL greater than 189 mg/dL Very high Cholesterol in VLDL Calc [Ma ss/Vol]Ordered By: Debbie Mac on 01-09-2023 Cholesterol in VLDL [Mass/Vol] 13 mg/dL [facility] Creatinine [Mass/volume] in Serum or PlasmaOrdered By: Debbie Mac on 01-09-2023 Creatinine [Mass/Vol] 0.98 mg/dL 0.60-1.20 [facility] Eosinophils Auto (Bld) [#/Vo l]Ordered By: Debbie Mac on 01-09-2023 Eosinophils (Bld) [#/Vol] 0.2 10*3/uL 0.0-0.45 [facility] Eosinophils/100 WBC Auto (Bl d)Ordered By: Debbie Mac on 01-09-2023 Eosinophils/100 WBC (Bld) 2.9 % . [facility] Erythrocyte distribution wid th Auto (RBC) [Ratio]Ordered By: Debbie Mac on 01-09-2023 Erythrocyte distribution width (RBC) [Ratio] 14.5 % 11.9-15.3 [facility] Hematocrit Auto (Bld) [Volum e fraction]Ordered By: Debbie Mac on 01-09-2023 Hematocrit (Bld) [Volume fraction] 43.9 % 34.0-46.4 [facility] Hemoglobin [Mass/volume] in BloodOrdered By: Debbie Mac on 01-09-2023 Hemoglobin (Bld) [Mass/Vol] 14.7 g/dL 11.8-15.4 [facility] Laboratory - Chemistry and C hemistry - challengeon 01-09-2023 Cholesterol [Mass/Vol] 135\S\135 below low threshold 140-200 [facility] Work Phone: Comment on above: Chol less than 200 m g/dl low risk Chol 201-239 mg/dl borderline risk Chol 240 mg/dl and greater high risk Cholesterol in LDL [Mass/Vol] 45\S\45 Normal 0-100 [facility] Work Phone: Comment on above: LDL ATP III CLASSIFI CATION LDL less than 100 mg/dL Optimal LDL 100-129 mg/dL Near or above optimal LDL 130-159 mg/dL Borderline high LDL 160-189 mg/dL High LDL greater than 189 mg/dL Very high Laboratory - CoagulationOrde red By: Debbie Mac on 01-09-2023 PT Coag (PPP) [Time] 11.5 s 9.0-12.9 [facility] Leukocytes [#/volume] correc anne marie for nucleated erythrocytes in Blood by Automated counOrdered By: Debbie Mac on 01-09-2023 WBC corrected for nucl RBC Auto (Bld) [#/Vol] 7.1 10*3/uL 3.8-11.6 [facility] Lymphocytes Auto (Bld) [#/Vo l]Ordered By: Debbie Mac on 01-09-2023 Lymphocytes (Bld) [#/Vol] 1.0 10*3/uL 1.00-4.8 [facility] Lymphocytes/100 WBC Auto (Bl d)Ordered By: Debbie Mac on 01-09-2023 Lymphocytes/100 WBC (Bld) 14.7 % . [facility] MCH Auto (RBC) [Entitic mass ]Ordered By: Debbie Mac on 01-09-2023 MCH (RBC) [Entitic mass] 29.8 pg 24.7-34.3 [facility] MCHC Auto (RBC) [Mass/Vol]Or dered By: Debbie Mac on 01-09-2023 MCHC (RBC) [Mass/Vol] 33.5 g/dL 32.0-35.0 [facility] MCV Auto (RBC) [Entitic vol] Ordered By: Debbie Mac on 01-09-2023 MCV (RBC) [Entitic vol] 89.1 fL 80-100 [facility] Monocytes Auto (Bld) [#/Vol] Ordered By: Debbie Mac on 01-09-2023 Monocytes (Bld) [#/Vol] 0.5 10*3/uL 0.0-0.8 [facility] Monocytes/100 WBC Auto (Bld) Ordered By: Debbie Mac on 01-09-2023 Monocytes/100 WBC (Bld) 7.0 % . [facility] Neutrophils Auto (Bld) [#/Vo l]Ordered By: Debbie Mac on 01-09-2023 Neutrophils (Bld) [#/Vol] 5.3 10*3/uL 1.8-7.7 [facility] Neutrophils/100 WBC Auto (Bl d)Ordered By: Debbie Mac on 01-09-2023 Neutrophils/100 WBC (Bld) 74.8 % . [facility] No Panel Informationon 01-09 74.8\S\74.8 Normal . [facility] Work Phone: 8.8\S\8.8 Normal 6.3-10.7 [facility] Work Phone: 167\S\167 Normal 150-450 [facility] Work Phone: 14.5\S\14.5 Normal 11.9-15.3 [facility] Work Phone: 33.5\S\33.5 Normal 32.0-35.0 [facility] Work Phone: 29.8\S\29.8 Normal 24.7-34.3 [facility] Work Phone: 5.3\S\5.3 Normal 1.8-7.7 [facility] Work Phone: 0.1\S\0.1 Normal 0-0.5 [facility] Work Phone: 0.6\S\0.6 Normal . [facility] Work Phone: 2.9\S\2.9 Normal . [facility] Work Phone: 7.0\S\7.0 Normal . [facility] Work Phone: 14.7\S\14.7 Normal 11.8-15.4 [facility] Work Phone: 0.0\S\0.0 Normal 0.0-0.2 [facility] Work Phone: Comment on above: PERFORMED BY:[facility] [place], [place] [phone] MEDICAL DIRECTORVITOR ZARATE M.D. 0.2\S\0.2 Normal 0.0-0.45 [facility] Work Phone: [phone] 0.5\S\0.5 Normal 0.0-0.8 [facility] Work Phone: [phone] 1.0\S\1.0 Normal 1.00-4.8 [facility] Work Phone: [phone] 89.1\S\89.1 Normal 80-100 [facility] Work Phone: [phone] 43.9\S\43.9 Normal 34.0-46.4 [facility] Work Phone: [phone]- [phone] 4.92\S\4.92 Normal 3.60-5.00 [facility] Work Phone: [phone] 7.1\S\7.1 Normal 3.8-11.6 [facility] Work Phone: [phone] 4.5\S\4.5 Normal 3.5-5.1 [facility] Work Phone: [phone] Comment on above: PERFORMED BY:[facility] [place], [place] [phone] MEDICAL SUZETTE ZARATE M.D. 1.8\S\1.8 Normal <5.0 [facility] Work Phone: [phone] Comment on above: PERFORMED BY:[place] [address], [place] [phone] MEDICAL SUZETTE ZARATE M.D. 13\S\13 Normal [facility] Work Phone: [phone] 69\S\69 Normal 0-149 [facility] Work Phone: [phone] Comment on above: TRIG ATP III CLASSIF ICATION TRIG less than 150 mg/dL Normal TRIG 150-199 mg/dL Borderline high TRIG 200-500 mg/dL High TRIG greater than 500 mg/dL Very high Standard traceable to the Center for Disease Conrtrol and Prevention (CDC) test method. 76\S\76 Normal 35-85 [facility] Work Phone: [phone] Comment on above: HDL CHOL ATP-III CLA SSIFICATION Cardiovascular Risk HDL > or equal to 60 mg/dL LOW HDL < 40 mg/dL HIGH 19.5\S\19.5 below low threshold 25.1-36.5 [facility] Work Phone: [phone] Comment on above: PERFORMED BY:[facility] [place] [phone] MEDICAL DIRECTORVITOR ZARATE M.D. 1.0\S\1.0 Normal [facility] Work Phone: [phone] Comment on above: INR Therapeutic Rang e [...] valves: 3 - 4.5 11.5\S\11.5 Normal 9.0-12.9 [facility] Work Phone: [phone] Test not performed\S \Test not performed Normal 6.0-15.0 [facility] Work Phone: [phone] 25.6\S\25.6 Normal 21.0-31.0 [facility] Work Phone: [phone] 106\S\106 Normal 98-107 [facility] Work Phone: [phone] Normal 3.5-5.1 [facility] Work Phone: [phone] Comment on above: Specimen hemolyzed, redraw requested 138\S\138 Normal 136-145 [facility] Work Phone: [phone] 22\S\22 Normal 7-25 [facility] Work Phone: [phone] 40.90\S\40.90 Normal [facility] Work Phone: [phone] Comment on above: PERFORMED BY:[facility] [place], [place] [phone] MEDICAL DIRECTORVITOR ZARATE M.D. 58.349\S\58.[address] [facility] Work Phone: 0.98\S\0.98 Normal 0.60-1.20 [facility] Work Phone: No Panel InformationOrdered By: Debbie Mac on 01-09-2023 Estimated GFR (CKD-EPI) 58.349 mL/Min [facility] Creatinine Clearance (Chem 40.90 [facility] Nucleated erythrocytes [Pres ence] in Blood by Automated countOrdered By: Debbie Mac on 01-09-2023 Nucleated RBC Auto Ql (Bld) 0.1 /100{WBC} 0-0.5 [facility] Platelet mean volume Auto (B ld) [Entitic vol]Ordered By: Debbie Mac on 01-09-2023 Platelet mean volume (Bld) [Entitic vol] 8.8 fL 6.3-10.7 [facility] Platelet poor plasma interna tional normalized ratio (INR) by coagulation assay (relatOrdered By: Debbie Mac on 01-09-2023 INR Coag (PPP) [Relative time] 1.0 {INR} [facility] Comment on above: INR Therapeutic Rang [...] 01-09-2023 Platelets (Bld) [#/Vol] 167 10*3/uL 150-450 [facility] Potassium [Moles/volume] in Serum or PlasmaOrdered By: Debbie Mac on 01-09-2023 Potassium [Moles/Vol] 4.5 mmol/L 3.5-5.1 [facility] RBC Auto (Bld) [#/Vol]Ordere d By: Debbie Mac on 01-09-2023 RBC (Bld) [#/Vol] 4.92 10*6/uL 3.60-5.00 [facility] Serum or plasma anion gap de terminationOrdered By: Debbie Mac on 01-09-2023 Anion gap [Moles/Vol] TNP [facility] Comment on above: Test not performed Serum or plasma high density lipoprotein (HDL) cholesterol measurementOrdered By: Debbie Mac on 01-09-2023 Cholesterol in HDL [Mass/Vol] 76 mg/dL 35-85 [facility] Comment on above: HDL CHOL ATP-III CLA SSIFICATION Cardiovascular RiskHDL > or equal to 60 mg/dL LOWHDL < 40 mg/dL HIGH Serum or plasma total choles terol/high density lipoprotein (HDL) cholesterol mass ratOrdered By: Debbie Mac on 01-09-2023 Cholesterol.total/Chol esterol in HDL [Mass ratio] 1.8 {ratio} <5.0 [facility] Sodium [Moles/volume] in Ser um or PlasmaOrdered By: Debbie Mac on 01-09-2023 Sodium [Moles/Vol] 138 mmol/L 136-145 [facility] Triglyceride [Mass/volume] i n Serum or PlasmaOrdered By: Debbie Mac on 01-09-2023 Triglyceride [Mass/Vol] 69 mg/dL 0-149 [facility] Comment on above: TRIG ATP III CLASSIF ICATIONTRIG less than 150 mg/dL NormalTRIG 150-199 mg/dL Borderline highTRIG 200-500 mg/dL High TRIG greater than 500 mg/dL Very highStandard traceable to the Center for Disease Conrtrol and Prevention (CDC) test method. 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 Comment on above: Result Comment: CUT- OFF POINTS HAVE BEEN ESTABLISHED BASED ON THE FOURTH UNIVERSAL DEFINITIONS OF MYOCARDIAL INFARCTION. THE UPPER REFERENCE LIMIT (URL) OF TROPONIN, DEFINED THE 99TH PERCENTILE OF cTnI DISTRIBUTION IN A REFERENCE POPULATION, HAS BEEN CONFIRMED THE DECISION THRESHOLD FOR NC DIAGNOSIS. Performed By: #### H STROPN #### [facility] [address], [place] [address] Dr. Lori Sutton Tobacco Screening.on 023 Tobacco use status CP b) [facility] Work Phone: XR CHEST 1 Von 01-04-2023 [...] cardiomegaly. Large hiatal hernia. Electronically authenticated by: [facility] Date: 2023-01-03 22:39 Normal [facility] BNPon 01-03-2023 Natriuretic peptide B (Bld) [Mass/Vol] 438.0 pg/mL Normal <=1,800.0 [facility] Comment on above: Performed By: #### B CONTRACTING ANALYST ####[facility] [address], [place] [address]NdDr. Lori Sutton CBC AUTO DIFFon 01-03-2023 BASO # 0.0 103/ul Normal 0.0-0.1 [facility] Comment on above: Performed By: #### C BC ####[facility] [address] [place], [place] [address]Dr. Estephaniaurbano Sutton Basophils/100 WBC (Bld) 0.7 % Normal 0.2-2.0 [facility] Comment on above: Performed By: #### C BC ####[facility] [address] [place], [place] [address]Dr. Lori Sutton EO # 0.2 103/ul Normal 0.0-0.7 [facility] Comment on above: Performed By: #### C BC ####[facility] [address] [place], [place] [address]Dr. Lori Sutton Eosinophils/100 WBC (Bld) 4.2 % Normal 0.9-7.0 [facility] Comment on above: Performed By: #### C BC ####[facility] [address] [place], [place] [address]Dr. Lori Sutton Erythrocyte distribution width (RBC) [Ratio] 13.7 % Normal 11.0-15.0 [facility] Comment on above: Performed By: #### C BC ####[facility] [address] [place], [place] [address]Dr. Estephaniaurbano Sutton Hematocrit (Bld) [Volume fraction] 46.1 % Normal 36.0-48.0 [facility] Comment on above: Performed By: #### C BC ####[facility] [address] [place], [place] [address]Dr. Lori Herman Hemoglobin (Bld) [Mass/Vol] 14.7 g/dL Normal 12.0-16.0 [facility] Comment on above: Performed By: #### C BC ####[facility] Uczdohuvyz[address] [place], [place] [address]Dr. Lori Sutton IG # 0.01 10e3/ul Normal 0.00-0.03 [facility] Comment on above: Performed By: #### C BC ####[facility] Swlbszlkab[address] [place], [place] [address]Dr. Lori Sutton IG % 0.2 % Normal 0.0-0.5 [facility] Comment on above: Performed By: #### C BC ####[facility] [address] [place] [address]Dr. Lori Herman LYMPH # 1.3 103/ul Normal 1.2-3.8 [facility] Comment on above: Performed By: #### C BC ####[facility] [address]ex[address]ulujc[address] [place] [address]Dr. Estephaniaurbano Sutton Lymphocytes/100 WBC (Bld) 22.9 % Normal 20.5-60.0 [facility] Comment on above: Performed By: #### C BC ####[facility] S[address]ylgvc[address] [place] [address]Dr. Estephaniaurbano Sutton MANUAL DIFF REQ NO Normal [facility] Comment on above: Performed By: #### C BC ####[facility] Wyrldorcvr[address] [place], [place] [address]Dr. Lori Herman MCH (RBC) [Entitic mass] 29.7 pg Normal 26.7-34.0 [facility] Comment on above: Performed By: #### C BC ####[facility] Jgxplpklsm[address] [place], [place] [address]Dr. Lori Herman MCHC (RBC) [Mass/Vol] 31.9 g/dL Normal 29.9-35.2 [facility] Comment on above: Performed By: #### C BC ####[facility] Fjuveonezz[address] [place] [address]Dr. Lori Sutton MCV (RBC) [Entitic vol] 93.1 fL Normal 81.0-99.0 [facility] Comment on above: Performed By: #### C BC ####[facility] Psjhlrqmlb[address] [place], [place] [address]Dr. Lori Sutton MONO # 0.3 103/ul Normal 0.3-0.8 [facility] Comment on above: Performed By: #### C BC ####[facility] Ydgnqgpiek[address] [place] [address]Dr. Lori Sutton Monocytes/100 WBC (Bld) 4.7 % Normal 1.7-12.0 [facility] Comment on above: Performed By: #### C BC ####[facility] [address]ukfikvuys[address] [place] [address]Dr. Lori Sutton NEUT # 3.9 103/ul Normal 1.4-6.5 [facility] Comment on above: Performed By: #### C BC ####[facility] Eotebzicvy[address] [place] [address]Dr. Lori Sutton Neutrophils/100 WBC (Bld) 67.3 % Normal 43.0-75.0 [facility] Comment on above: Performed By: #### C BC ####[facility] Slexlbozea[address] [place] [address]Dr. Lori Sutton Platelet mean volume (Bld) [Entitic vol] 10.5 fL Normal 9.5-13.5 [facility] Comment on above: Performed By: #### C BC ####[facility] Xfes[address]lj[address] [place], [place] [address]Dr. Lori Sutton PLT 211 103/ul Normal 150-450 [facility] Comment on above: Performed By: #### C BC ####[facility] [address]zfmjv[address] [place], [place] [address]Dr. Lori Sutton RBC 4.95 106/ul Normal 4.20-5.40 [facility] Comment on above: Performed By: #### C BC ####[facility] Lwrfdzqjmf[address] [place], [place] [address]Dr. Lori Sutton WBC 5.7 103/ul Normal 4.0-11.0 [facility] Comment on above: Performed By: #### C BC ####[facility] [address] [place] [id number]. Lori Sutton D-DIMERon 01-03-2023 D-DIMER 0.26 mg/L FEU Normal <=0.[address] [facility] Comment on above: Performed By: #### D DIM ####[facility] Vot[address]pe[address]ut[address] [place], [place] [id number]. Lori Herman D-DIMER COMMENTS SEE BELOW Normal [facility] Comment on above: Result Comment: Incr [...] generalized hospitalization. Performed By: #### D DIM ####[facility] V[address]jujpcp[address] [place], [place] [address]Kt. Lori Sutton Office Visit (Cardiology)on 01-03-2023 Follow-up [...] Lead; Status:Active - Perform Order,Retrospective Authorization; Requested for:[id number]; SocHx: Never a smoker Tobacco Use Screening; Status:Complete; Done: [id number] Patient Instructions Continue same medications/treatment. Patient educated [...] for which she started seeing [facility] since 2020 after she was hospitalized in [facility] for bradycardia. Adjustment of her medical [...] therapy. Patient is being evaluated recently at [facility] for ablation therapy for atrial fibrillation. [...] possible applicat (more content not included)... Normal [facility] PROF 14(COMP METB)on 023 Albumin [Mass/Vol] 3.8 g/dL Normal 3.4-5.0 [facility] Comment on above: Performed By: #### C CHELSEA BATISTA ####[facility] Nyru[address]acjh[address] [place] [address]Dr. Lori Sutton Albumin/Globulin [Mass ratio] 1.2 {ratio} Normal [facility] Comment on above: Performed By: #### C KHURRAM BATISTAN ####[facility] [address]rhrvp[address] [place] [address]DrMelita Sutton ALP [Catalytic activity/Vol] 101 U/L Normal 46-116 [facility] Comment on above: Performed By: #### C KHURRAM BATISTAN ####[facility] [address]qbrnz[address] [place] [id number] Sutton ALT [Catalytic activity/Vol] 25 U/L Normal 14-59 [facility] Comment on above: Performed By: #### C KHURRAM BATISTAN ####[facility] Cymbsvbjft[address] [place] [address]DrMelita Sutton Anion gap [Moles/Vol] 15.5 mmol/L Normal [facility] Comment on above: Performed By: #### C LESTER, HSTROPN ####[facility] Pkghuhmvqg[address] [place] [address]Dr. Lori Sutton AST [Catalytic activity/Vol] 24 U/L Normal 15-37 [facility] Comment on above: Performed By: #### C LESTER, HSTROPN ####[facility] Qhuqarichf[address] [place] [address]Dr. Lori Sutton Bilirubin [Mass/Vol] 0.8 mg/dL Normal 0.2-1.0 [facility] Comment on above: Performed By: #### C LESTER, HSTROPN ####[facility] Laamsfzjec[address] [place], [place] [address]Dr. Lori Sutton Calcium [Mass/Vol] 8.8 mg/dL Normal 8.5-10.1 [facility] Comment on above: Performed By: #### C LESTER, HSTROPN ####[facility] Swkbyeurpy[address] [place], [place] [address]Dr. Lori Sutton Chloride [Moles/Vol] 105 mmol/L Normal 98-107 [facility] Comment on above: Performed By: #### C LESTER, HSTROPN ####[facility] Tdp[address]izwp[address] [place], [place] [address]Dr. Lori Sutton CO2 [Moles/Vol] 24.5 mmol/L Normal 21.0-32.0 [facility] Comment on above: Performed By: #### C LESTER, HSTROPN ####[facility] Yfalzcjtqr12[address] [place] [address]Dr. Lori Sutton Creatinine [Mass/Vol] 1.28 mg/dL Critically high 0.55-1.02 [facility] Comment on above: Performed By: #### C LESTER, HSTROPN ####[facility] Zmfaieoncv[address] [place] [address]Dr. Lori Sutton EGFR-AF CHILEAN 49 mL/min/1.73m2 Critically low >=60 [facility] Comment on above: Performed By: #### C LESTER, HSTROPN ####[facility] F[address]ixucgbkf[address] [place] [address]Dr. Lori Sutton EGFR-NON AF CHILEAN 40 mL/min/1.73m2 Critically low >=60 [facility] Comment on above: Performed By: #### C LESTER, HSTROPN ####[facility] Ucrpbszloh[address] [place] [address]Dr. Lori Sutton Globulin (S) [Mass/Vol] 3.2 g/dL Normal [facility] Comment on above: Performed By: #### C LESTER, HSTROPN ####[facility] Uhwidjixtz[address] [place] [address]Dr. Lori Sutton Glucose [Mass/Vol] 230 mg/dL Critically high 74-106 [facility] Comment on above: Performed By: #### C LESTER, HSTROPN ####[facility] T[address]mem[address] [place], [place] [address]Dr. Lori Sutton Potassium [Moles/Vol] 4.0 mmol/L Normal 3.5-5.1 [facility] Comment on above: Performed By: #### C LESTER, HSTROPN ####[facility] Unofabatuh[address] [place], [place] [address]Dr. Lori Sutton Protein [Mass/Vol] 7.0 g/dL Normal 6.4-8.2 [facility] Comment on above: Performed By: #### C LESTER, HSTROPN ####[facility] Gudq[address]azh[address] [place], [place] [address]Dr. Lori Sutton Sodium [Moles/Vol] 141 mmol/L Normal 136-145 [facility] Comment on above: Performed By: #### C LESTER, HSTROPN ####[facility] B[address]qojnly[address] [place] [address]Dr. Lori Sutton Urea nitrogen [Mass/Vol] 28.0 mg/dL Critically high 7.0-18.0 [facility] Comment on above: Performed By: #### C LESTER, HSTROPN ####[facility] Arx[address]jvxv[address] [place] [address]Dr. Lori Sutton Urea nitrogen/Creatinine [Mass ratio] 21.9 mg/mg Normal [facility] Comment on above: Performed By: #### C LESTER, HSTROPN ####[facility] Qrjvyqiowf[address] [place] [address]Dr. Lori Sutton TROPONIN, HIGH SENSITIVITYon 01-03-2023 HSTROP 74.5 pg/mL Critically high 4.0-51.[address] [facility] Comment on above: Result Comment: CUT- OFF POINTS HAVE BEEN ESTABLISHED BASED ON THE FOURTH UNIVERSAL DEFINITIONS OF MYOCARDIAL INFARCTION. THE UPPER REFERENCE LIMIT (URL) OF TROPONIN, DEFINED THE 99TH PERCENTILE OF cTnI DISTRIBUTION IN A REFERENCE POPULATION, HAS BEEN CONFIRMED THE DECISION THRESHOLD FOR NC DIAGNOSIS. Performed By: #### C LESTER HSTROPN ####[facility] [address] [place] [address]Dr. Lori Sutton Tobacco Screening.on 023 Fall risk assessment a) No falls within the last year [facility] Work Phone: Tobacco use status CPHS b) No [facility] Work Phone: Tobacco Screening. Yes [facility] Work Phone: AMYLASEon 01-02-2023 Amylase [Catalytic activity/Vol] 37 U/L Normal 25-115 [facility] Comment on above: Performed By: #### B CONTRACTING ANALYST, GERRY, CMP #### [facility] [address] [place] [address] [address] Lori Sutton BNPon 01-02-2023 Natriuretic peptide B (Bld) [Mass/Vol] 690.0 pg/mL Normal <=1,800.0 [facility] Comment on above: Performed By: #### B CONTRACTING ANALYST, GERRY, CMP ####[facility] Urgriswpjc[address] [place] [address]Dr. Lori Sutton CBC AUTO DIFFon 01-02-2023 BASO # 0.0 103/ul Normal 0.0-0.1 [facility] Comment on above: Performed By: #### C BC #### [facility] [address] [place] [address] Dr. Lori Sutton Basophils/100 WBC (Bld) 0.6 % Normal 0.2-2.0 [facility] Comment on above: Performed By: #### C BC #### [facility] [address] [place] [address] Dr. Lori Sutton EO # 0.2 103/ul Normal 0.0-0.7 [facility] Comment on above: Performed By: #### C BC #### [facility] [address] [place] [address] Dr. Lori Sutton Eosinophils/100 WBC (Bld) 2.8 % Normal 0.9-7.0 [facility] Comment on above: Performed By: #### C BC #### [facility] [address] [place] [address] Dr. Lori Sutton Erythrocyte distribution width (RBC) [Ratio] 13.8 % Normal 11.0-15.0 [facility] Comment on above: Performed By: #### C BC #### [facility] [address] [place] [address] Dr. Lori Sutton Hematocrit (Bld) [Volume fraction] 46.3 % Normal 36.0-48.0 [facility] Comment on above: Performed By: #### C BC #### [facility] [address] [place] [address] Dr. Lori Sutton Hemoglobin (Bld) [Mass/Vol] 15.0 g/dL Normal 12.0-16.0 [facility] Comment on above: Performed By: #### C BC #### [facility] [address] [place] [address] Dr. Lori Sutton IG # 0.01 10e3/ul Normal 0.00-0.03 [facility] Comment on above: Performed By: #### C BC #### [facility] [address] [place] [address] Dr. Lori Sutton IG % 0.2 % Normal 0.0-0.5 [facility] Comment on above: Performed By: #### C BC #### [facility] [address] [place] [address] Dr. Lori Sutton LYMPH # 1.1 103/ul Critically low 1.2-3.8 [facility] Comment on above: Performed By: #### C BC #### [facility] [address] [place] [address] Dr. Lori Sutton Lymphocytes/100 WBC (Bld) 17.6 % Critically low 20.5-60.0 [facility] Comment on above: Performed By: #### C BC #### [facility] [address] [place] [address] Dr. Lori Sutton MANUAL DIFF REQ NO Normal [facility] Comment on above: Performed By: #### C BC #### [facility] [address] [place] [address] Dr. Lori Sutton MCH (RBC) [Entitic mass] 29.7 pg Normal 26.7-34.0 [facility] Comment on above: Performed By: #### C BC #### [facility] [address] [place] [address] Dr. Lori Sutton MCHC (RBC) [Mass/Vol] 32.4 g/dL Normal 29.9-35.2 [facility] Comment on above: Performed By: #### C BC #### [facility] [address] [place] [address] Dr. Lori Sutton MCV (RBC) [Entitic vol] 91.7 fL Normal 81.0-99.0 [facility] Comment on above: Performed By: #### C BC #### [facility] [address] [place] [address] Dr. Lori Sutton MONO # 0.4 103/ul Normal 0.3-0.8 [facility] Comment on above: Performed By: #### C BC #### [facility] [address] [place] [address] Dr. Lori Sutton Monocytes/100 WBC (Bld) 6.2 % Normal 1.7-12.0 [facility] Comment on above: Performed By: #### C BC #### [facility] [address] [place] [address] Dr. Lori Sutton NEUT # 4.6 103/ul Normal 1.4-6.5 [facility] Comment on above: Performed By: #### C BC #### [facility] [address] [place] [address] [address] Lori Sutton Neutrophils/100 WBC (Bld) 72.6 % Normal 43.0-75.0 [facility] Comment on above: Performed By: #### C BC #### [facility] [address] [place] [address] [address] Lori Sutton Platelet mean volume (Bld) [Entitic vol] 10.3 fL Normal 9.5-13.5 [facility] Comment on above: Performed By: #### C BC #### [facility] [address] [place] [address] Dr. Lori Sutton PLT 207 103/ul Normal 150-450 [facility] Comment on above: Performed By: #### C BC #### [facility] [address] [place] [address] [address] Lori Sutton RBC 5.05 106/ul Normal 4.20-5.40 [facility] Comment on above: Performed By: #### C BC #### [facility] [address] [place] [address] Dr. Lori Sutton WBC 6.3 103/ul Normal 4.0-11.0 [facility] Comment on above: Performed By: #### C BC #### [facility] [address] [place] [address] Dr. Lori Sutton PROF 14(COMP METB)on 023 Albumin [Mass/Vol] 3.9 g/dL Normal 3.4-5.0 [facility] Comment on above: Performed By: #### B GERRY GODOY CMP ####[facility] [address]efnl[address] [place] [address]Dr. Lori Sutton Albumin/Globulin [Mass ratio] 1.2 {ratio} Normal [facility] Comment on above: Performed By: #### B GERRY GODOY CMP ####[facility] [address]uyql[address] [place] [address]Dr. Lori Sutton ALP [Catalytic activity/Vol] 98 U/L Normal 46-116 [facility] Comment on above: Performed By: #### B CONTRACTING ANALYST, GERRY, CMP ####[facility] [address]lebci[address] [place] [address]Dr. Lori Sutton ALT [Catalytic activity/Vol] 24 U/L Normal 14-59 [facility] Comment on above: Performed By: #### B CONTRACTING ANALYST, GERRY, CMP ####[facility] Sfmddpbkbx[address] [place] [address]Dr. Lori Sutton Anion gap [Moles/Vol] 12.0 mmol/L Normal [facility] Comment on above: Performed By: #### B CONTRACTING ANALYST, GERRY, CMP ####[facility] [address]vepncaw[address] [place], [place] [address]Dr. Lori Sutton AST [Catalytic activity/Vol] 25 U/L Normal 15-37 [facility] Comment on above: Performed By: #### B CONTRACTING ANALYST, GERRY, CMP ####[facility] [address]ygcfrk[address] [place] [address]Dr. Lori Sutton Bilirubin [Mass/Vol] 0.8 mg/dL Normal 0.2-1.0 [facility] Comment on above: Performed By: #### B CONTRACTING ANALYST, GERRY, CMP ####[facility] [address]nx[address] [place] [address]Dr. Lori Sutton Calcium [Mass/Vol] 9.2 mg/dL Normal 8.5-10.1 [facility] Comment on above: Performed By: #### B CONTRACTING ANALYST, GERRY, CMP ####[facility] [address]uvmrpsk[address] [place] [address]Dr. Lori Sutton Chloride [Moles/Vol] 107 mmol/L Normal 98-107 [facility] Comment on above: Performed By: #### B CONTRACTING ANALYST, GERRY, CMP ####[facility] Iavedsyaja[address] [place] [address]Dr. Lori Sutton CO2 [Moles/Vol] 28.6 mmol/L Normal 21.0-32.0 [facility] Comment on above: Performed By: #### B CONTRACTING ANALYST, GERRY, CMP ####[facility] [address]bejbnnj[address] [place] [address]Dr. Lori Sutton Creatinine [Mass/Vol] 1.08 mg/dL Critically high 0.55-1.02 [facility] Comment on above: Performed By: #### B CONTRACTING ANALYST, GERRY, CMP ####[facility] Tit[address]kdlj[address] [place] [address]Dr. Lori Sutton EGFR-AF CHILEAN 59 mL/min/1.73m2 Critically low >=60 [facility] Comment on above: Performed By: #### B CONTRACTING ANALYST, GERRY, CMP ####[facility] [address]fs[address] [place], [place] [address]Dr. Lori Sutton EGFR-NON AF CHILEAN 49 mL/min/1.73m2 Critically low >=60 [facility] Comment on above: Performed By: #### B CONTRACTING ANALYST, GERRY, CMP ####[facility] Z[address]wzovht[address] [place], [place] [address]Dr. Lori Sutton Globulin (S) [Mass/Vol] 3.2 g/dL Normal [facility] Comment on above: Performed By: #### B CONTRACTING ANALYST, GERRY, CMP ####[facility] [address]jejokrm[address] [place], [place] [address]Dr. Lori Sutton Glucose [Mass/Vol] 103 mg/dL Normal 74-106 [facility] Comment on above: Performed By: #### B CONTRACTING ANALYST, GERRY, CMP ####[facility] [address]jmsohfajx[address] [place], [place] [address]Dr. Lori Sutton Potassium [Moles/Vol] 4.6 mmol/L Normal 3.5-5.1 [facility] Comment on above: Performed By: #### B CONTRACTING ANALYST, GERRY, CMP ####[facility] [address]uk[address]qk[address] [place], [place] [address]Dr. Lori Sutton Protein [Mass/Vol] 7.1 g/dL Normal 6.4-8.2 [facility] Comment on above: Performed By: #### B CONTRACTING ANALYST, GERRY, CMP ####[facility] Cdsxjtxgmz[address] [place], [place] [address]Dr. Lori Sutton Sodium [Moles/Vol] 143 mmol/L Normal 136-145 [facility] Comment on above: Performed By: #### B WALT, GERRY, CMP ####[facility] [address] [place], [place] [address]Wj. Lori Sutton Urea nitrogen [Mass/Vol] 29.0 mg/dL Critically high 7.0-18.0 [facility] Comment on above: Performed By: #### B WALT, GERRY, CMP ####[facility] [address] [place], [place] [address]Ki. Lori Sutton Urea nitrogen/Creatinine [Mass ratio] 26.9 mg/mg Normal [facility] Comment on above: Performed By: #### B GERRY GODOY, CMP ####[facility] Rxrqmnzblr6[address] [place], [place] [address]Df. Lori Sutton XR CHEST 2 Von 01-02-2023 [...] ARI LEVY Date: 2023-01-02 12:33 Normal [facility] Office Visit (Cardiology)on 12-25-2022 Follow-up visit [...] AF includes Amiodarone (d/c?d for concerns of parts counterman side effects), tikosyn (prolonged OTc), sotalol and DCCV (09/2022). Symptoms of her AF include fatigue and BRAY. Pt follows with Dr Stover for management of her AF. Pt has previously been on Amio but was concerned about retirement side effects. She was then put on [...] @ 109 bpm Echo 08/2022 ([facility] ? [facility]): LVEF 40%, moderate anteroseptal hypokinesis with [...] 11-27-2022 ALP [Catalytic activity/Vol] 67 U/L 34-104 [facility] Amylase [Enzymatic activity/ volume] in Serum or PlasmaOrdered By: Wilbur Watson on 11-27-2022 Amylase [Catalytic activity/Vol] 24 U/L 29-103 [facility] Bilirubin.direct [Mass/volum e] in Serum or PlasmaOrdered By: Wilbur Watson on 11-27-2022 Bilirubin.direct [Mass/Vol] 0.20 mg/dL 0.03-0.18 [facility] Bilirubin.total [Mass/volume ] in Serum or PlasmaOrdered By: Wilbur Watson on 11-27-2022 Bilirubin [Mass/Vol] 0.8 mg/dL 0.3-1.0 [facility] Lipase [Enzymatic activity/v olume] in Serum or PlasmaOrdered By: Wilbur Watson on 11-27-2022 Lipase [Catalytic activity/Vol] 31.0 U/L 11.0-82.0 [facility] Serum or plasma non-glucuron idated bilirubin measurement (mass/volume)Ordered By: Wilbur Watson on 11-27-2022 Bilirubin.indirect [Mass/Vol] 0.6 mg/dL [facility] Basophils Auto (Bld) [#/Vol] Ordered By: Wilbur Watson on 11-20-2022 Basophils (Bld) [#/Vol] 0.1 10*3/uL 0.0-0.2 [facility] Basophils/100 WBC Auto (Bld) Ordered By: Wilbur Watson on 11-20-2022 Basophils/100 WBC (Bld) 0.9 % . [facility] Calcium [Mass/volume] in Ser um or PlasmaOrdered By: Wilbur Watson on 11-20-2022 Calcium [Mass/Vol] 9.5 mg/dL 8.6-10.3 [facility] Carbon dioxide, total [Moles /volume] in Serum or PlasmaOrdered By: Wilbur Watson on 11-20-2022 CO2 [Moles/Vol] 25.5 mmol/L 21.0-31.0 [facility] Chloride [Moles/volume] in S vaughn or PlasmaOrdered By: Wilbur Watson on 11-20-2022 Chloride [Moles/Vol] 107 mmol/L 98-107 [facility] Creatinine [Mass/volume] in Serum or PlasmaOrdered By: Wilbur Watson on 11-20-2022 Creatinine [Mass/Vol] 1.08 mg/dL 0.60-1.20 [facility] Eosinophils Auto (Bld) [#/Vo l]Ordered By: Wilbur Watson on 11-20-2022 Eosinophils (Bld) [#/Vol] 0.3 10*3/uL 0.0-0.45 [facility] Eosinophils/100 WBC Auto (Bl d)Ordered By: Wilbur Watson on 11-20-2022 Eosinophils/100 WBC (Bld) 3.6 % . [facility] Erythrocyte distribution wid th Auto (RBC) [Ratio]Ordered By: Wilbur Watson on 11-20-2022 Erythrocyte distribution width (RBC) [Ratio] 13.9 % 11.9-15.3 [facility] Glucose [Mass/volume] in Ser um or PlasmaOrdered By: Wilbur Watson on 11-20-2022 Glucose [Mass/Vol] 91 mg/dL 70-100 [facility] Comment on above: ADA recommended refe rence rangeRandom Glucose Reference Range is dependent on time and content of last meal. Glucose of more than 200 mg/dL in a nonstressed, ambulatory subject supports the diagnosis of Diabetes Mellitus. Hematocrit Auto (Bld) [Volum e fraction]Ordered By: Wilbur Watson on 11-20-2022 Hematocrit (Bld) [Volume fraction] 46.1 % 34.0-46.4 [facility] Hemoglobin [Mass/volume] in BloodOrdered By: Wilbur Watson on 11-20-2022 Hemoglobin (Bld) [Mass/Vol] 15.2 g/dL 11.8-15.4 [facility] Leukocytes [#/volume] correc anne marie for nucleated erythrocytes in Blood by Automated counOrdered By: Wilbur Watson on 11-20-2022 WBC corrected for nucl RBC Auto (Bld) [#/Vol] 7.0 10*3/uL 3.8-11.6 [facility] Lymphocytes Auto (Bld) [#/Vo l]Ordered By: Wilbur Watson on 11-20-2022 Lymphocytes (Bld) [#/Vol] 1.6 10*3/uL 1.00-4.8 [facility] Lymphocytes/100 WBC Auto (Bl d)Ordered By: Wilbur Watsno on 11-20-2022 Lymphocytes/100 WBC (Bld) 23.1 % . [facility] MCH Auto (RBC) [Entitic mass ]Ordered By: Wilbur Watson on 11-20-2022 MCH (RBC) [Entitic mass] 29.4 pg 24.7-34.3 [facility] MCHC Auto (RBC) [Mass/Vol]Or dered By: Wilbur Watson on 11-20-2022 MCHC (RBC) [Mass/Vol] 33.0 g/dL 32.0-35.0 [facility] MCV Auto (RBC) [Entitic vol] Ordered By: Wilbur Watson on 11-20-2022 MCV (RBC) [Entitic vol] 88.9 fL 80-100 [facility] Monocytes Auto (Bld) [#/Vol] Ordered By: Wilbur Watson on 11-20-2022 Monocytes (Bld) [#/Vol] 0.5 10*3/uL 0.0-0.8 [facility] Monocytes/100 WBC Auto (Bld) Ordered By: Wilbur Watson on 11-20-2022 Monocytes/100 WBC (Bld) 7.4 % . [facility] Neutrophils Auto (Bld) [#/Vo l]Ordered By: Wilbur Watson on 11-20-2022 Neutrophils (Bld) [#/Vol] 4.6 10*3/uL 1.8-7.7 [facility] Neutrophils/100 WBC Auto (Bl d)Ordered By: Wilbur Watson on 11-20-2022 Neutrophils/100 WBC (Bld) 65.0 % . [facility] No Panel InformationOrdered By: Wilbur Watson on 11-20-2022 Estimated GFR (CKD-EPI) 51.927 mL/Min [facility] Creatinine Clearance (Chem N/A [facility] Nucleated erythrocytes [Pres ence] in Blood by Automated countOrdered By: Wilbur Watson on 11-20-2022 Nucleated RBC Auto Ql (Bld) 0.1 /100{WBC} 0-0.5 [facility] Platelet mean volume Auto (B ld) [Entitic vol]Ordered By: Wilbur Watson on 11-20-2022 Platelet mean volume (Bld) [Entitic vol] 9.1 fL 6.3-10.7 [facility] Platelets Auto (Bld) [#/Vol] Ordered By: Wilbur Watson on 11-20-2022 Platelets (Bld) [#/Vol] 220 10*3/uL 150-450 [facility] Potassium [Moles/volume] in Serum or PlasmaOrdered By: Wilbur Watson on 11-20-2022 Potassium [Moles/Vol] 4.5 mmol/L 3.5-5.1 [facility] RBC Auto (Bld) [#/Vol]Ordere d By: Wilbur Watson on 11-20-2022 RBC (Bld) [#/Vol] 5.18 10*6/uL 3.60-5.00 [facility] Serum or plasma anion gap de terminationOrdered By: Wilbur Watson on 11-20-2022 Anion gap [Moles/Vol] 12.0 mmol/L 6.0-15.0 [facility] Sodium [Moles/volume] in Ser um or PlasmaOrdered By: Wilbur Watson on 11-20-2022 Sodium [Moles/Vol] 140 mmol/L 136-145 [facility] Urea nitrogen [Mass/volume] in Serum or PlasmaOrdered By: Wilbur Watson on 11-20-2022 Urea nitrogen [Mass/Vol] 31 mg/dL 7-25 [facility] WBC Auto (Bld) [#/Vol]Ordere d By: Wilbur Watson on 11-20-2022 WBC (Bld) [#/Vol] 7.0 10*3/uL 3.8-11.6 [facility] MG MAMM SCREEN 3D MARYBETH CADon 10-16-2022 MG MAMM SCREEN 3D MARYBETH CAD Patient: AUSTIN GOLDEN Exam Date: 10/16/2022 : 1940 Gender:F Ordering : DR JAZMIN العلي D.O. Admission #: [id number] Family : Order #: [id number] CLICK HERE TO VIEW EXAM RADIOLOGY REPORT [...] sarcoma cancer at age 45. LOCATION: [facility] BREAST COMPOSITION: Extremely dense, which lowers [...] MD on 10/16/2022 at 14:09 Normal [facility] Office Visit (Cardiology)on 10-13-2022 Follow-up visit [...] Weight Tips; Status:Complete - Retrospective Authorization; Done: [id number] Some eating tips that can help you lose weight.; Status:Complete - Retrospective Authorization; Done: [id number] Gallstones General Surgery Referral Evaluation and Treatment Evaluate AND Treat Status: Hold For - Scheduling,Retrospective Authorization Requested for: [id number] Persistent atrial fibrillation Renew: Sotalol HCl - 80 MG Oral Tablet (Betapace); TAKE 1 TABLET BY MOUTH TWICE DAILY IO EKG Electrocardiogram- 12 Lead; Status:Complete; Done: [id number] SocHx: Never a smoker Tobacco Use Screening; Status:Complete; Done: [id number] Patient Instructions Please bring all medicines, vitamins, [...] Complaint AUSTIN GOLDEN is being seen for [facility] d/c 09/2022. History of Present Illness Patient [...] Medication fentany (more content not included)... Normal [facility] Tobacco Screening.on 023 Fall risk assessment a) No falls within the last year -[facility] [address] DO Work Phone: [phone] Tobacco use status [facility] b) No [facility] [address] DO Work Phone: Tobacco Screening. Yes [facility] [address] DO Work Phone: Tobacco Screening.on 023 Fall risk assessment a) No falls within the last year [facility] [address] DO Work Phone: [phone] Tobacco use status [facility] b) No [facility] [address] DO Work Phone: [phone] Basophils Auto (Bld) [#/Vol] Ordered By: Katie Dukes on 09-21-2022 Basophils (Bld) [#/Vol] 0.0 10*3/uL 0.0-0.2 [facility] Basophils/100 WBC Auto (Bld) Ordered By: Katie Dukes on 09-21-2022 Basophils/100 WBC (Bld) 0.7 % . [facility] Creatine kinase [Enzymatic a ctivity/volume] in Serum or PlasmaOrdered By: Debbie Mac on 09-21-2022 CK [Catalytic activity/Vol] 76 U/L 22-269 [facility] Creatinine and Glomerular fi ltration rate.predicted panel (S/P/Bld)Ordered By: Katie Dukes on 09-21-2022 Creatinine [Mass/Vol] 1.08 mg/dL 0.44-1.03 [facility] Eosinophils Auto (Bld) [#/Vo l]Ordered By: Katie Dukes on 09-21-2022 Eosinophils (Bld) [#/Vol] 0.3 10*3/uL 0.0-0.45 [facility] Eosinophils/100 WBC Auto (Bl d)Ordered By: Katie Dukes on 09-21-2022 Eosinophils/100 WBC (Bld) 4.6 % . [facility] Erythrocyte distribution wid th Auto (RBC) [Ratio]Ordered By: Katie Dukes on 09-21-2022 Erythrocyte distribution width (RBC) [Ratio] 13.5 % 11.9-15.3 [facility] Estimated glomerular filtrat ion rate (GFR) non- AmericanOrdered By: Katie Dukes on 09-21-2022 GFR/1.73 sq M.predicted among non-blacks MDRD (S/P/Bld) [Vol rate/Area] 49 mL/Min [facility] Hematocrit Auto (Bld) [Volum e fraction]Ordered By: Katie Dukes on 09-21-2022 Hematocrit (Bld) [Volume fraction] 39.6 % 34.0-46.4 [facility] Hemoglobin [Mass/volume] in BloodOrdered By: Katie Dukes on 09-21-2022 Hemoglobin (Bld) [Mass/Vol] 13.0 g/dL 11.8-15.4 [facility] Laboratory - Chemistry and C hemistry - challengeOrdered By: Debbie Mac on 09-21-2022 Natriuretic peptide B (Bld) [Mass/Vol] 203.0 pg/mL 5-100 [facility] Laboratory - Chemistry and C hemistry - challengeOrdered By: Katie Dukes on 09-21-2022 Magnesium [Mass/Vol] 1.8 mg/dL 1.6-2.6 [facility] Leukocytes [#/volume] correc anne marie for nucleated erythrocytes in Blood by Automated counOrdered By: Katie Dukes on 09-21-2022 WBC corrected for nucl RBC Auto (Bld) [#/Vol] 5.7 10*3/uL 3.8-11.6 [facility] Lymphocytes Auto (Bld) [#/Vo l]Ordered By: Katie Dukes on 09-21-2022 Lymphocytes (Bld) [#/Vol] 1.1 10*3/uL 1.00-4.8 [facility] Lymphocytes/100 WBC Auto (Bl d)Ordered By: Katie Dukes on 09-21-2022 Lymphocytes/100 WBC (Bld) 18.9 % . [facility] MCH Auto (RBC) [Entitic mass ]Ordered By: Katie Dukes on 09-21-2022 MCH (RBC) [Entitic mass] 29.6 pg 24.7-34.3 [facility] MCHC Auto (RBC) [Mass/Vol]Or dered By: Katie Dukes on 09-21-2022 MCHC (RBC) [Mass/Vol] 32.9 g/dL 32.0-35.0 [facility] MCV Auto (RBC) [Entitic vol] Ordered By: Katie Dukes on 09-21-2022 MCV (RBC) [Entitic vol] 89.8 fL 80-100 [facility] Monocytes Auto (Bld) [#/Vol] Ordered By: Katie Dukes on 09-21-2022 Monocytes (Bld) [#/Vol] 0.4 10*3/uL 0.0-0.8 [facility] Monocytes/100 WBC Auto (Bld) Ordered By: Katie Dukes on 09-21-2022 Monocytes/100 WBC (Bld) 7.6 % . [facility] Neutrophils Auto (Bld) [#/Vo l]Ordered By: Katie Dukes on 09-21-2022 Neutrophils (Bld) [#/Vol] 3.9 10*3/uL 1.8-7.7 [facility] Neutrophils/100 WBC Auto (Bl d)Ordered By: Katie Dukes on 09-21-2022 Neutrophils/100 WBC (Bld) 68.2 % . [facility] No Panel InformationOrdered By: Katie Dukes on 09-21-2022 Estimated GFR () 59 mL/Min [facility] Comment on above: GFR estimated refere nce range: According to KDOQI guidelines, <60 ml/min/1.73m2 is sufficient to diagnose a patient with chronic kidney disease. Pharmacy Creatinine Clearance (Chem 37.27 [facility] Nucleated erythrocytes [Pres ence] in Blood by Automated countOrdered By: Katie Dukes on 09-21-2022 Nucleated RBC Auto Ql (Bld) 0.0 /100{WBC} 0-0.5 [facility] Platelet mean volume Auto (B ld) [Entitic vol]Ordered By: Katie Dukes on 09-21-2022 Platelet mean volume (Bld) [Entitic vol] 9.5 fL 6.3-10.7 [facility] Platelets Auto (Bld) [#/Vol] Ordered By: Katie Dukes on 09-21-2022 Platelets (Bld) [#/Vol] 173 10*3/uL 150-450 [facility] RBC Auto (Bld) [#/Vol]Ordere d By: Katie Dukes on 09-21-2022 RBC (Bld) [#/Vol] 4.41 10*6/uL 3.60-5.00 [facility] Serum or plasma anion gap de terminationOrdered By: Katie Dukes on 09-21-2022 Anion gap [Moles/Vol] 11.0 mmol/L 6.0-15.0 [facility] Serum or plasma calcium mitch urement (mass/volume)Ordered By: Katie Dukes on 09-21-2022 Calcium [Mass/Vol] 8.6 mg/dL 8.2-10.2 [facility] Serum or plasma chloride carlitos surement (moles/volume)Ordered By: Katie Dukes on 09-21-2022 Chloride [Moles/Vol] 107 mmol/L 95-114 [facility] Serum or plasma creatine kin ase MB (CKMB)/total creatine kinase (CK) ratio by calculaOrdered By: Debbie Mac on 09-21-2022 CK.MB Calc [Catalytic fraction] 2.5 % 0.00-2.50 [facility] Serum or plasma creatine kin ase MB measurement (mass/volume)Ordered By: Debbie Mac on 09-21-2022 CK.MB [Mass/Vol] 1.9 ng/mL 0.6-6.3 [facility] Serum or plasma glucose mitch urement (mass/volume)Ordered By: Katie Dukes on 09-21-2022 Glucose [Mass/Vol] 94 mg/dL 70-100 [facility] Comment on above: ADA recommended refe rence rangeRandom Glucose Reference Range is dependent on time and content of last meal. Glucose of more than 200 mg/dL in a nonstressed, ambulatory subject supports the diagnosis of Diabetes Mellitus. Serum or plasma potassium me asurement (moles/volume)Ordered By: Katie Dukes on 09-21-2022 Potassium [Moles/Vol] 3.9 mmol/L 3.5-5.1 [facility] Serum or plasma sodium measu rement (moles/volume)Ordered By: Katie Dukes on 09-21-2022 Sodium [Moles/Vol] 137 mmol/L 136-146 [facility] Serum or plasma total carbon dioxide measurement (moles/volume)Ordered By: Katie Dukes on 09-21-2022 CO2 [Moles/Vol] 22.9 mmol/L 22.0-30.0 [facility] Serum or plasma urea nitroge n measurement (mass/volume)Ordered By: Katie Dukes on 09-21-2022 Urea nitrogen [Mass/Vol] 18 mg/dL 9-23 [facility] Troponin I.cardiac [Mass/vol ume] in Serum or Plasma by High sensitivity methodOrdered By: Debbie Mac on 09-21-2022 Troponin I.cardiac High sensitivity method [Mass/Vol] 9 pg/mL 0-15 [facility] WBC Auto (Bld) [#/Vol]Ordere d By: Katie Dukes on 09-21-2022 WBC (Bld) [#/Vol] 5.7 10*3/uL 3.8-11.6 [facility] Glucose Glucometer (BldC) [M ass/Vol]Ordered By: Katie Dukes on 09-19-2022 Glucose [Mass/Vol] 93 mg/dL [facility] Comment on above: Random Glucose Refer ence Range is dependent on time and content of last meal. Glucose of more than 200 mg/dL in a nonstressed, ambulatory subject supports the diagnosis of Diabetes Mellitus. No Panel InformationOrdered By: Katie Dukes on 09-19-2022 Bedside Glucose Comment Glu2: cleaned meter [facility] Activated partial thrombopla stin time (aPTT) in platelet poor plasma by coagulation aOrdered By: Indy Rolon on 09-17-2022 aPTT Coag (PPP) [Time] 40.4 s 25.1-36.5 [facility] Automated erythrocytes count in urine sediment (number/area)Ordered By: Indy Rolon on 09-17-2022 RBC Auto (Urine sed) [#/Area] 10-19 [HPF] 0-4 [facility] Automated leukocytes count i n urine sediment (number/area)Ordered By: Indy Rolon on 09-17-2022 WBC Auto (Urine sed) [#/Area] 20-49 [HPF] 0-4 [facility] Automated urine hyaline cast s count (number/volume)Ordered By: Indy Rolon on 09-17-2022 Hyaline casts Auto (U) [#/Vol] 3-4 [LPF] 0-1 [facility] Basophils Auto (Bld) [#/Vol] Ordered By: Indy Rolon on 09-17-2022 Basophils (Bld) [#/Vol] 0.0 10*3/uL 0.0-0.2 [facility] Basophils/100 WBC Auto (Bld) Ordered By: Indy Rolon on 09-17-2022 Basophils/100 WBC (Bld) 0.6 % . [facility] Bilirubin Test strip Ql (U)O rdered By: Indy Rolon on 09-17-2022 Bilirubin Ql (U) Negative Negative [facility] Body fluid albumin measureme nt (mass/volume)Ordered By: Indy Rolon on 09-17-2022 Albumin (Body fld) [Mass/Vol] 4.1 g/dL 3.2-5.5 [facility] Casts typing in urine sedime nt by light microscopyOrdered By: Indy Rolon on 09-17-2022 Casts LM Nom (Urine sed) None seen [LPF] None Seen [facility] Color Auto (U)Ordered By: Jordan Rolon on 09-17-2022 Color (U) Dark yellow Yellow [facility] Creatinine and Glomerular fi ltration rate.predicted panel (S/P/Bld)Ordered By: Indy Rolon on 09-17-2022 Creatinine [Mass/Vol] 1.23 mg/dL 0.44-1.03 [facility] Eosinophils Auto (Bld) [#/Vo l]Ordered By: Indy Rolon on 09-17-2022 Eosinophils (Bld) [#/Vol] 0.3 10*3/uL 0.0-0.45 [facility] Eosinophils/100 WBC Auto (Bl d)Ordered By: Indy Rolon on 09-17-2022 Eosinophils/100 WBC (Bld) 3.5 % . [facility] Erythrocyte distribution wid th Auto (RBC) [Ratio]Ordered By: Indy Rolon on 09-17-2022 Erythrocyte distribution width (RBC) [Ratio] 13.5 % 11.9-15.3 [facility] Estimated glomerular filtrat ion rate (GFR) non- AmericanOrdered By: Indy Rolon on 09-17-2022 GFR/1.73 sq M.predicted among non-blacks MDRD (S/P/Bld) [Vol rate/Area] 42 mL/Min [facility] Globulin Calc (S) [Mass/Vol] Ordered By: Indy Rolon on 09-17-2022 Globulin (S) [Mass/Vol] 2.2 g/dL [facility] Hematocrit Auto (Bld) [Volum e fraction]Ordered By: Indy Rolon on 09-17-2022 Hematocrit (Bld) [Volume fraction] 43.5 % 34.0-46.4 [facility] Hemoglobin [Mass/volume] in BloodOrdered By: Indy Rolon on 09-17-2022 Hemoglobin (Bld) [Mass/Vol] 14.4 g/dL 11.8-15.4 [facility] Ketones Auto test strip (U) [Mass/Vol]Ordered By: Indy Rolon on 09-17-2022 Ketones (U) [Mass/Vol] Trace [facility] - Chemistry and C hemistry - challengeOrdered By: Indy Rolon on 09-17-2022 Magnesium [Mass/Vol] 2.1 mg/dL 1.6-2.6 [facility] Natriuretic peptide B (Bld) [Mass/Vol] 292.0 pg/mL 5-100 [facility] Laboratory - CoagulationOrde red By: Indy Rolon on 09-17-2022 PT Coag (PPP) [Time] 23.4 s 9.0-12.9 [facility] Leukocytes [#/volume] correc anne marie for nucleated erythrocytes in Blood by Automated counOrdered By: Indy Rolon on 09-17-2022 WBC corrected for nucl RBC Auto (Bld) [#/Vol] 8.0 10*3/uL 3.8-11.6 [facility] Lymphocytes Auto (Bld) [#/Vo l]Ordered By: Indy Rolon on 09-17-2022 Lymphocytes (Bld) [#/Vol] 1.2 10*3/uL 1.00-4.8 [facility] Lymphocytes/100 WBC Auto (Bl d)Ordered By: Indy Rolon on 09-17-2022 Lymphocytes/100 WBC (Bld) 15.2 % . [facility] MCH Auto (RBC) [Entitic mass ]Ordered By: Indy Rolon on 09-17-2022 MCH (RBC) [Entitic mass] 30.1 pg 24.7-34.3 [facility] MCHC Auto (RBC) [Mass/Vol]Or dered By: Indy Rolon on 09-17-2022 MCHC (RBC) [Mass/Vol] 33.2 g/dL 32.0-35.0 [facility] MCV Auto (RBC) [Entitic vol] Ordered By: Indy Rolon on 09-17-2022 MCV (RBC) [Entitic vol] 90.6 fL 80-100 [facility] Monocyte distribution width [Entitic volume] in Blood by AutomatedOrdered By: Indy Rolon on 09-17-2022 Monocyte distribution width Auto (Bld) [Entitic vol] 19.67 % 0.00-20.00 [facility] Monocytes Auto (Bld) [#/Vol] Ordered By: Indy Rolon on 09-17-2022 Monocytes (Bld) [#/Vol] 0.6 10*3/uL 0.0-0.8 [facility] Monocytes/100 WBC Auto (Bld) Ordered By: Indy Rolon on 09-17-2022 Monocytes/100 WBC (Bld) 7.1 % . [facility] Neutrophils Auto (Bld) [#/Vo l]Ordered By: Indy Rolon on 09-17-2022 Neutrophils (Bld) [#/Vol] 5.9 10*3/uL 1.8-7.7 [facility] Neutrophils/100 WBC Auto (Bl d)Ordered By: Indy Rolon on 09-17-2022 Neutrophils/100 WBC (Bld) 73.6 % . [facility] Nitrite Test strip Ql (U)Ord ered By: Indy Rolon on 09-17-2022 Nitrite Ql (U) Negative Negative [facility] No Panel InformationOrdered By: Indy Rolon on 09-17-2022 Estimated GFR () 51 mL/Min [facility] Comment on above: GFR estimated refere nce range: According to KDOQI guidelines, <60 ml/min/1.73m2 is sufficient to diagnose a patient with chronic kidney disease. Pharmacy Creatinine Clearance (Chem N/A [facility] Nucleated erythrocytes [Pres ence] in Blood by Automated countOrdered By: Indy Rolon on 09-17-2022 Nucleated RBC Auto Ql (Bld) 0.3 /100{WBC} 0-0.5 [facility] Platelet mean volume Auto (B ld) [Entitic vol]Ordered By: Indy Rolon on 09-17-2022 Platelet mean volume (Bld) [Entitic vol] 9.4 fL 6.3-10.7 [facility] Platelet poor plasma interna tional normalized ratio (INR) by coagulation assay (relatOrdered By: Indy Rolon on 09-17-2022 INR Coag (PPP) [Relative time] 2.0 {INR} [facility] Comment on above: INR Therapeutic Rang [...] 09-17-2022 Platelets (Bld) [#/Vol] 203 10*3/uL 150-450 [facility] Protein Auto test strip (U) [Mass/Vol]Ordered By: Indy Rolon on 09-17-2022 Protein (U) [Mass/Vol] Trace mg/dL Negative F [facility] Protein [Mass/volume] in Ser um or PlasmaOrdered By: Indy Rolon on 09-17-2022 Protein [Mass/Vol] 6.3 g/dL 6.1-7.9 [facility] RBC Auto (Bld) [#/Vol]Ordere d By: Indy Rolon on 09-17-2022 RBC (Bld) [#/Vol] 4.80 10*6/uL 3.60-5.00 [facility] Serum or plasma alanine mahmood otransferase measurement without P-5'-P (enzymatic activiOrdered By: Indy Rolon on 09-17-2022 ALT No additional P-5'-P [Catalytic activity/Vol] 20 U/L 10-60 [facility] Serum or plasma albumin/glob ulin mass ratioOrdered By: Indy Rolon on 09-17-2022 Albumin/Globulin [Mass ratio] 1.9 {ratio} [facility] Serum or plasma alkaline mia sphatase measurement (enzymatic activity/volume)Ordered By: Indy Rolon on 09-17-2022 ALP [Catalytic activity/Vol] 79 U/L 32-92 [facility] Serum or plasma anion gap de terminationOrdered By: Indy Rolon on 09-17-2022 Anion gap [Moles/Vol] 14.2 mmol/L 6.0-15.0 [facility] Serum or plasma aspartate am inotransferase measurement (enzymatic activity/volume)Ordered By: Indy Rolon on 09-17-2022 AST [Catalytic activity/Vol] 28 U/L 10-42 [facility] Serum or plasma calcium mitch urement (mass/volume)Ordered By: Indy Rolon on 09-17-2022 Calcium [Mass/Vol] 9.4 mg/dL 8.2-10.2 [facility] Serum or plasma chloride carlitos surement (moles/volume)Ordered By: Indy Rolon on 09-17-2022 Chloride [Moles/Vol] 103 mmol/L 95-114 [facility] Serum or plasma glucose mitch urement (mass/volume)Ordered By: Indy Rolon on 09-17-2022 Glucose [Mass/Vol] 94 mg/dL 70-100 [facility] Comment on above: ADA recommended refe rence rangeRandom Glucose Reference Range is dependent on time and content of last meal. Glucose of more than 200 mg/dL in a nonstressed, ambulatory subject supports the diagnosis of Diabetes Mellitus. Serum or plasma potassium me asurement (moles/volume)Ordered By: Indy Rolon on 09-17-2022 Potassium [Moles/Vol] 4.7 mmol/L 3.5-5.1 [facility] Serum or plasma sodium measu rement (moles/volume)Ordered By: Indy Rolon on 09-17-2022 Sodium [Moles/Vol] 138 mmol/L 136-146 [facility] Serum or plasma total biliru bin measurement (mass/volume)Ordered By: Indy oRlon on 09-17-2022 Bilirubin [Mass/Vol] 1.1 mg/dL 0.3-1.2 [facility] Serum or plasma total carbon dioxide measurement (moles/volume)Ordered By: Indy Rolon on 09-17-2022 CO2 [Moles/Vol] 25.5 mmol/L 22.0-30.0 [facility] Serum or plasma urea nitroge n measurement (mass/volume)Ordered By: Indy Rolon on 09-17-2022 Urea nitrogen [Mass/Vol] 24 mg/dL 9-23 [facility] Specific gravity Auto test s trip (U) [Rel density]Ordered By: Indy Rolon on 09-17-2022 Specific gravity (U) [Rel density] 1.024 1.001-1.03 0 [facility] Squamous epithelial cells de tection in urine sediment by light microscopyOrdered By: Indy Rolon on 09-17-2022 Epithelial cells.squamous LM Ql (Urine sed) 10-19 [HPF] 0-2 [facility] Troponin I.cardiac [Mass/vol ume] in Serum or Plasma by High sensitivity methodOrdered By: Indy Rolon on 09-17-2022 Troponin I.cardiac High sensitivity method [Mass/Vol] 8 pg/mL 0-15 [facility] Urine bacteria detection by automated methodOrdered By: Indy Rolon on 09-17-2022 Bacteria Auto Ql (U) 3+ None Seen [facility] Urine clarity by refractomet ry automatedOrdered By: Indy Rolon on 09-17-2022 Clarity Refractometry automated (U) Cloudy Clear [facility] Urine culture routineOrdered By: Indy Rolon on 09-17-2022 Bacteria identified Cx Nom (U) Escherichia coli [facility] Bacteria identified Cx Nom (U) Escherichia coli [facility] Urine glucose measurement by automated test strip (mass/volume)Ordered By: Indy Rolon on 09-17-2022 Glucose Auto test strip (U) [Mass/Vol] Normal mg/dL Normal [facility] Urine hemoglobin detection b y automated test stripOrdered By: Indy Rolon on 09-17-2022 Hemoglobin Auto test strip Ql (U) Trace Negative [facility] Urine leukocyte esterase det ection by automated test stripOrdered By: Indy Rolon on 09-17-2022 Leukocyte esterase Auto test strip Ql (U) 3+ Negative [facility] Urobilinogen Auto test strip (U) [Mass/Vol]Ordered By: Indy Rolon on 09-17-2022 Urobilinogen (U) [Mass/Vol] Normal mg/dL Normal [facility] WBC Auto (Bld) [#/Vol]Ordere d By: Indy Rolon on 09-17-2022 WBC (Bld) [#/Vol] 8.0 10*3/uL 3.8-11.6 [facility] Yeast detection in urine sed iment by light microscopyOrdered By: Indy Rolon on 09-17-2022 Yeast LM Ql (Urine sed) Rare [HPF] None Seen [facility] pH Auto test strip (U)Ordere d By: Indy Rolon on 09-17-2022 pH (U) 5.5 [pH] 5.0-9.0 [facility] Basophils Auto (Bld) [#/Vol] Ordered By: Jay Ceja on 09-05-2022 Basophils (Bld) [#/Vol] 0.0 10*3/uL 0.0-0.2 [facility] Basophils/100 WBC Auto (Bld) Ordered By: Jay Ceja on 09-05-2022 Basophils/100 WBC (Bld) 0.9 % . [facility] Creatinine and Glomerular fi ltration rate.predicted panel (S/P/Bld)Ordered By: Jay Ceja on 09-05-2022 Creatinine [Mass/Vol] 1.57 mg/dL 0.44-1.03 [facility] Eosinophils Auto (Bld) [#/Vo l]Ordered By: Jay Ceja on 09-05-2022 Eosinophils (Bld) [#/Vol] 0.3 10*3/uL 0.0-0.45 [facility] Eosinophils/100 WBC Auto (Bl d)Ordered By: Jay Ceja on 09-05-2022 Eosinophils/100 WBC (Bld) 4.7 % . [facility] Erythrocyte distribution wid th Auto (RBC) [Ratio]Ordered By: Jay Ceja on 09-05-2022 Erythrocyte distribution width (RBC) [Ratio] 13.8 % 11.9-15.3 [facility] Estimated glomerular filtrat ion rate (GFR) non- AmericanOrdered By: Jay Ceja on 09-05-2022 GFR/1.73 sq M.predicted among non-blacks MDRD (S/P/Bld) [Vol rate/Area] 32 mL/Min [facility] Hematocrit Auto (Bld) [Volum e fraction]Ordered By: Jay Ceja on 09-05-2022 Hematocrit (Bld) [Volume fraction] 42.4 % 34.0-46.4 [facility] Hemoglobin [Mass/volume] in BloodOrdered By: Jay Ceja on 09-05-2022 Hemoglobin (Bld) [Mass/Vol] 14.0 g/dL 11.8-15.4 [facility] Leukocytes [#/volume] correc anne marie for nucleated erythrocytes in Blood by Automated counOrdered By: Jay Ceja on 09-05-2022 WBC corrected for nucl RBC Auto (Bld) [#/Vol] 5.6 10*3/uL 3.8-11.6 [facility] Lymphocytes Auto (Bld) [#/Vo l]Ordered By: Jay Ceja on 09-05-2022 Lymphocytes (Bld) [#/Vol] 1.4 10*3/uL 1.00-4.8 [facility] Lymphocytes/100 WBC Auto (Bl d)Ordered By: Jay Ceja on 09-05-2022 Lymphocytes/100 WBC (Bld) 25.6 % . [facility] MCH Auto (RBC) [Entitic mass ]Ordered By: Jay Ceja on 09-05-2022 MCH (RBC) [Entitic mass] 29.7 pg 24.7-34.3 [facility] MCHC Auto (RBC) [Mass/Vol]Or dered By: Jay Ceja on 09-05-2022 MCHC (RBC) [Mass/Vol] 32.9 g/dL 32.0-35.0 [facility] MCV Auto (RBC) [Entitic vol] Ordered By: Jay Ceja on 09-05-2022 MCV (RBC) [Entitic vol] 90.2 fL 80-100 [facility] Monocytes Auto (Bld) [#/Vol] Ordered By: Jay Ceja on 09-05-2022 Monocytes (Bld) [#/Vol] 0.5 10*3/uL 0.0-0.8 [facility] Monocytes/100 WBC Auto (Bld) Ordered By: Jay Ceja on 09-05-2022 Monocytes/100 WBC (Bld) 9.7 % . [facility] Neutrophils Auto (Bld) [#/Vo l]Ordered By: Jay Ceja on 09-05-2022 Neutrophils (Bld) [#/Vol] 3.3 10*3/uL 1.8-7.7 [facility] Neutrophils/100 WBC Auto (Bl d)Ordered By: Jay Ceja on 09-05-2022 Neutrophils/100 WBC (Bld) 59.1 % . [facility] No Panel InformationOrdered By: Jay Ceja on 09-05-2022 Estimated GFR () 38 mL/Min [facility] Comment on above: GFR estimated refere nce range: According to KDOQI guidelines, <60 ml/min/1.73m2 is sufficient to diagnose a patient with chronic kidney disease. Pharmacy Creatinine Clearance (Chem 24.80 [facility] Nucleated erythrocytes [Pres ence] in Blood by Automated countOrdered By: Jay Ceja on 09-05-2022 Nucleated RBC Auto Ql (Bld) 0.2 /100{WBC} 0-0.5 [facility] Platelet mean volume Auto (B ld) [Entitic vol]Ordered By: Jay Ceja on 09-05-2022 Platelet mean volume (Bld) [Entitic vol] 9.2 fL 6.3-10.7 [facility] Platelets Auto (Bld) [#/Vol] Ordered By: Jay Ceja on 09-05-2022 Platelets (Bld) [#/Vol] 190 10*3/uL 150-450 [facility] RBC Auto (Bld) [#/Vol]Ordere d By: Jay Ceja on 09-05-2022 RBC (Bld) [#/Vol] 4.70 10*6/uL 3.60-5.00 [facility] Serum or plasma anion gap de terminationOrdered By: Jay Ceja on 09-05-2022 Anion gap [Moles/Vol] 11.5 mmol/L 6.0-15.0 [facility] Serum or plasma calcium mitch urement (mass/volume)Ordered By: Jay Ceja on 09-05-2022 Calcium [Mass/Vol] 8.9 mg/dL 8.2-10.2 [facility] Serum or plasma chloride carlitos surement (moles/volume)Ordered By: Jay Ceja on 09-05-2022 Chloride [Moles/Vol] 105 mmol/L 95-114 [facility] Serum or plasma glucose mitch urement (mass/volume)Ordered By: Jay Ceja on 09-05-2022 Glucose [Mass/Vol] 103 mg/dL 70-100 [facility] Comment on above: ADA recommended refe rence rangeRandom Glucose Reference Range is dependent on time and content of last meal. Glucose of more than 200 mg/dL in a nonstressed, ambulatory subject supports the diagnosis of Diabetes Mellitus. Serum or plasma potassium me asurement (moles/volume)Ordered By: Jay Ceja on 09-05-2022 Potassium [Moles/Vol] 4.0 mmol/L 3.5-5.1 [facility] Serum or plasma sodium measu rement (moles/volume)Ordered By: Jay Ceja on 09-05-2022 Sodium [Moles/Vol] 140 mmol/L 136-146 [facility] Serum or plasma total carbon dioxide measurement (moles/volume)Ordered By: Jay Ceja on 09-05-2022 CO2 [Moles/Vol] 27.5 mmol/L 22.0-30.0 [facility] Serum or plasma urea nitroge n measurement (mass/volume)Ordered By: Jay Ceja on 09-05-2022 Urea nitrogen [Mass/Vol] 29 mg/dL 9-23 [facility] WBC Auto (Bld) [#/Vol]Ordere d By: Jay Ceja on 09-05-2022 WBC (Bld) [#/Vol] 5.6 10*3/uL 3.8-11.6 [facility] Glucose mean value [Mass/vol ume] in Blood Estimated from glycated hemoglobinOrdered By: Jay Ceja on 09-02-2022 Average glucose Estimated from glycated hemoglobin (Bld) [Mass/Vol] 117 mg/dL [facility] Hemoglobin A1c percentageOrd ered By: Jay Ceja on 09-02-2022 HbA1c (Bld) [Mass fraction] 5.7 % 4.3-5.6 [facility] Comment on above: Increased risk for d iabetes: 5.7 - 6.4diabetes: >6.4glycemic control for adults with diabetes: <7.0 Laboratory - Chemistry and C hemistry - challengeOrdered By: Jay Ceja on 09-02-2022 Magnesium [Mass/Vol] 1.8 mg/dL 1.6-2.6 [facility] Natriuretic peptide B (Bld) [Mass/Vol] 307.0 pg/mL 5-100 [facility] TSH DL <= 0.005 mIU/L QnOrde red By: Jay Ceja on 09-02-2022 TSH Qn 3.39 m[IU]/L 0.45-5.33 [facility] Troponin I.cardiac [Mass/vol ume] in Serum or Plasma by High sensitivity methodOrdered By: Jay Ceja on 09-02-2022 Troponin I.cardiac High sensitivity method [Mass/Vol] 6 pg/mL 0-15 [facility] Albumin [Mass/volume] in Ser um or PlasmaOrdered By: Luis Lennon on 09-01-2022 Albumin [Mass/Vol] 3.7 g/dL 3.2-5.5 [facility] Automated erythrocytes count in urine sediment (number/area)Ordered By: Luis Lennon on 09-01-2022 RBC Auto (Urine sed) [#/Area] 3-4 [HPF] 0-4 [facility] Automated leukocytes count i n urine sediment (number/area)Ordered By: Luis Lennon on 09-01-2022 WBC Auto (Urine sed) [#/Area] 5-9 [HPF] 0-4 [facility] Basophils Auto (Bld) [#/Vol] Ordered By: Luis Lennon on 09-01-2022 Basophils (Bld) [#/Vol] 0.1 10*3/uL 0.0-0.2 [facility] Basophils/100 WBC Auto (Bld) Ordered By: Luis Lennon on 09-01-2022 Basophils/100 WBC (Bld) 0.8 % . [facility] Bilirubin Test strip Ql (U)O rdered By: Luis Lennon on 09-01-2022 Bilirubin Ql (U) Negative Negative [facility] Color Auto (U)Ordered By: Robert Lennon on 09-01-2022 Color (U) Dark yellow Yellow [facility] Creatinine and Glomerular fi ltration rate.predicted panel (S/P/Bld)Ordered By: Luis Lennon on 09-01-2022 Creatinine [Mass/Vol] 1.14 mg/dL 0.44-1.03 [facility] Eosinophils Auto (Bld) [#/Vo l]Ordered By: Luis Lennon on 09-01-2022 Eosinophils (Bld) [#/Vol] 0.3 10*3/uL 0.0-0.45 [facility] Eosinophils/100 WBC Auto (Bl d)Ordered By: Luis Lennon on 09-01-2022 Eosinophils/100 WBC (Bld) 4.1 % . [facility] Erythrocyte distribution wid th Auto (RBC) [Ratio]Ordered By: Luis Lennon on 09-01-2022 Erythrocyte distribution width (RBC) [Ratio] 14.3 % 11.9-15.3 [facility] Estimated glomerular filtrat ion rate (GFR) non- AmericanOrdered By: Luis Lennon on 09-01-2022 GFR/1.73 sq M.predicted among non-blacks MDRD (S/P/Bld) [Vol rate/Area] 46 mL/Min [facility] Globulin Calc (S) [Mass/Vol] Ordered By: Luis Lennon on 09-01-2022 Globulin (S) [Mass/Vol] 2.2 g/dL [facility] Hematocrit Auto (Bld) [Volum e fraction]Ordered By: Luis Lennon on 09-01-2022 Hematocrit (Bld) [Volume fraction] 43.4 % 34.0-46.4 [facility] Hemoglobin [Mass/volume] in BloodOrdered By: Luis Lennon on 09-01-2022 Hemoglobin (Bld) [Mass/Vol] 13.9 g/dL 11.8-15.4 [facility] Ketones Auto test strip (U) [Mass/Vol]Ordered By: Luis Lennon on 09-01-2022 Ketones (U) [Mass/Vol] Trace Negative [facility] Laboratory - Chemistry and C hemistry - challengeOrdered By: Luis Lennon on 09-01-2022 Natriuretic peptide B (Bld) [Mass/Vol] 445.0 pg/mL 5-100 [facility] Laboratory - UrinalysisOrder ed By: Luis Lennon on 09-01-2022 Hyaline casts LM Ql (Urine sed) 0-8 [LPF] 0-8 [facility] Leukocytes [#/volume] correc anne marie for nucleated erythrocytes in Blood by Automated counOrdered By: Luis Lennon on 09-01-2022 WBC corrected for nucl RBC Auto (Bld) [#/Vol] 8.1 10*3/uL 3.8-11.6 [facility] Lymphocytes Auto (Bld) [#/Vo l]Ordered By: Luis Lennon on 09-01-2022 Lymphocytes (Bld) [#/Vol] 1.1 10*3/uL 1.00-4.8 [facility] Lymphocytes/100 WBC Auto (Bl d)Ordered By: Luis Lennon on 09-01-2022 Lymphocytes/100 WBC (Bld) 13.9 % . [facility] MCH Auto (RBC) [Entitic mass ]Ordered By: Luis Lennon on 09-01-2022 MCH (RBC) [Entitic mass] 29.3 pg 24.7-34.3 [facility] MCHC Auto (RBC) [Mass/Vol]Or dered By: Luis Lennon on 09-01-2022 MCHC (RBC) [Mass/Vol] 32.0 g/dL 32.0-35.0 [facility] MCV Auto (RBC) [Entitic vol] Ordered By: Luis Lennon on 09-01-2022 MCV (RBC) [Entitic vol] 91.4 fL 80-100 [facility] Monocyte distribution width [Entitic volume] in Blood by AutomatedOrdered By: Luis Lennon on 09-01-2022 Monocyte distribution width Auto (Bld) [Entitic vol] 16.84 % 0.00-20.00 [facility] Monocytes Auto (Bld) [#/Vol] Ordered By: Luis Lennon on 09-01-2022 Monocytes (Bld) [#/Vol] 0.6 10*3/uL 0.0-0.8 [facility] Monocytes/100 WBC Auto (Bld) Ordered By: Luis Lennon on 09-01-2022 Monocytes/100 WBC (Bld) 7.5 % . [facility] Neutrophils Auto (Bld) [#/Vo l]Ordered By: Luis Lennon on 09-01-2022 Neutrophils (Bld) [#/Vol] 5.9 10*3/uL 1.8-7.7 [facility] Neutrophils/100 WBC Auto (Bl d)Ordered By: Luis Lennon on 09-01-2022 Neutrophils/100 WBC (Bld) 73.7 % . [facility] Nitrite Test strip Ql (U)Ord ered By: Luis Lennon on 09-01-2022 Nitrite Ql (U) Negative Negative [facility] No Panel InformationOrdered By: Luis Lennon on 09-01-2022 Estimated GFR () 56 mL/Min [facility] Comment on above: GFR estimated refere nce range: According to KDOQI guidelines, <60 ml/min/1.73m2 is sufficient to diagnose a patient with chronic kidney disease. Pharmacy Creatinine Clearance (Chem 35.69 [facility] Nucleated erythrocytes [Pres ence] in Blood by Automated countOrdered By: Luis Lennon on 09-01-2022 Nucleated RBC Auto Ql (Bld) 0.1 /100{WBC} 0-0.5 [facility] Platelet mean volume Auto (B ld) [Entitic vol]Ordered By: Luis Lennon on 09-01-2022 Platelet mean volume (Bld) [Entitic vol] 9.1 fL 6.3-10.7 [facility] Platelets Auto (Bld) [#/Vol] Ordered By: Luis Lennon on 09-01-2022 Platelets (Bld) [#/Vol] 208 10*3/uL 150-450 [facility] Protein Auto test strip (U) [Mass/Vol]Ordered By: Luis Lennon on 09-01-2022 Protein (U) [Mass/Vol] 30 mg/dL Negative [facility] Protein [Mass/volume] in Ser um or PlasmaOrdered By: Luis Lennon on 09-01-2022 Protein [Mass/Vol] 5.9 g/dL 6.1-7.9 [facility] RBC Auto (Bld) [#/Vol]Ordere d By: Luis Lennon on 09-01-2022 RBC (Bld) [#/Vol] 4.74 10*6/uL 3.60-5.00 [facility] Serum or plasma alanine mahmood otransferase measurement without P-5'-P (enzymatic activiOrdered By: Luis Lennon on 09-01-2022 ALT No additional P-5'-P [Catalytic activity/Vol] 33 U/L 10-60 [facility] Serum or plasma albumin/glob ulin mass ratioOrdered By: Luis Lennon on 09-01-2022 Albumin/Globulin [Mass ratio] 1.7 {ratio} [facility] Serum or plasma alkaline mia sphatase measurement (enzymatic activity/volume)Ordered By: Luis Lennon on 09-01-2022 ALP [Catalytic activity/Vol] 70 U/L 32-92 [facility] Serum or plasma anion gap de terminationOrdered By: Luis Lennon on 09-01-2022 Anion gap [Moles/Vol] 9.3 mmol/L 6.0-15.0 [facility] Serum or plasma aspartate am inotransferase measurement (enzymatic activity/volume)Ordered By: Luis Lennon on 09-01-2022 AST [Catalytic activity/Vol] 33 U/L 10-42 [facility] Serum or plasma calcium mitch urement (mass/volume)Ordered By: Luis Lennon on 09-01-2022 Calcium [Mass/Vol] 9.0 mg/dL 8.2-10.2 [facility] Serum or plasma chloride carlitos surement (moles/volume)Ordered By: Luis Lennon on 09-01-2022 Chloride [Moles/Vol] 109 mmol/L 95-114 [facility] Serum or plasma glucose mitch urement (mass/volume)Ordered By: Luis Lennon on 09-01-2022 Glucose [Mass/Vol] 95 mg/dL 70-100 [facility] Comment on above: ADA recommended refe rence rangeRandom Glucose Reference Range is dependent on time and content of last meal. Glucose of more than 200 mg/dL in a nonstressed, ambulatory subject supports the diagnosis of Diabetes Mellitus. Serum or plasma potassium me asurement (moles/volume)Ordered By: Luis Lennon on 09-01-2022 Potassium [Moles/Vol] 4.2 mmol/L 3.5-5.1 [facility] Serum or plasma sodium measu rement (moles/volume)Ordered By: Luis Lennon on 09-01-2022 Sodium [Moles/Vol] 138 mmol/L 136-146 [facility] Serum or plasma total biliru bin measurement (mass/volume)Ordered By: Luis Lennon on 09-01-2022 Bilirubin [Mass/Vol] 1.3 mg/dL 0.3-1.2 [facility] Comment on above: Samples from patient s who have taken Naproxen have shown spurious elevation in Total Bilirubin levels. A metabolite of Naproxen, O-desmethylnaproxen, has been shown to interfere with the Dc-Day method for measuring Total Bilirubin. Serum or plasma total carbon dioxide measurement (moles/volume)Ordered By: Luis Lennon on 09-01-2022 CO2 [Moles/Vol] 23.9 mmol/L 22.0-30.0 [facility] Serum or plasma urea nitroge n measurement (mass/volume)Ordered By: Luis Lennon on 09-01-2022 Urea nitrogen [Mass/Vol] 23 mg/dL 9-23 [facility] Specific gravity Auto test s trip (U) [Rel density]Ordered By: Luis Lennon on 09-01-2022 Specific gravity (U) [Rel density] 1.022 1.001-1.03 0 [facility] Squamous epithelial cells de tection in urine sediment by light microscopyOrdered By: Luis Lennon on 09-01-2022 Epithelial cells.squamous LM Ql (Urine sed) 5-9 [HPF] 0-2 [facility] Troponin I.cardiac [Mass/vol ume] in Serum or Plasma by High sensitivity methodOrdered By: Luis Lennon on 09-01-2022 Troponin I.cardiac High sensitivity method [Mass/Vol] 7 pg/mL 0-15 [facility] Urine bacteria detection by automated methodOrdered By: Luis Lennon on 09-01-2022 Bacteria Auto Ql (U) None seen None Seen [facility] Urine clarity by refractomet ry automatedOrdered By: Luis Lennon on 09-01-2022 Clarity Refractometry automated (U) Clear Clear [facility] Urine culture routineOrdered By: Luis Lennon on 09-01-2022 Bacteria identified Cx Nom (U) 2 Days [facility] Bacteria identified Cx Nom (U) 2 Days [facility] Urine glucose measurement by automated test strip (mass/volume)Ordered By: Luis Lennon on 09-01-2022 Glucose Auto test strip (U) [Mass/Vol] Normal mg/dL Normal [facility] Urine hemoglobin detection b y automated test stripOrdered By: Luis Lennon on 09-01-2022 Hemoglobin Auto test strip Ql (U) Negative Negative [facility] Urine leukocyte esterase det ection by automated test stripOrdered By: Luis Lennon on 09-01-2022 Leukocyte esterase Auto test strip Ql (U) 2+ Negative [facility] Urobilinogen Auto test strip (U) [Mass/Vol]Ordered By: Luis Lennon on 09-01-2022 Urobilinogen (U) [Mass/Vol] Normal mg/dL Normal [facility] WBC Auto (Bld) [#/Vol]Ordere d By: Luis Lennon on 09-01-2022 WBC (Bld) [#/Vol] 8.1 10*3/uL 3.8-11.6 [facility] pH Auto test strip (U)Ordere d By: Luis Lennon on 09-01-2022 pH (U) 5.5 [pH] 5.0-9.0 [facility] Office Visit (Cardiology)on 06-26-2022 Follow-up visit [...] a smoker Tobacco Use Screening; Status:Complete; Done: [id number] Patient Instructions Please bring all medicines, vitamins, [...] Signs Recorded: [id number] 02:26PM Heart Rate71, Apical [id number], LUE, Sitting [id number], LUE, Sitting Height4 ft 11 in Gndcab219 lb BMI Fonjyduapi33.92 kg/m2 BSA Calculated1.69 Tobacco Useb) No Falls Screening (Age 18+)a) No falls within the last year EKG COMPLETED IN OFFICE Physical Exam Constitutional: alert and in no acute distress. Neck: neck is supple, symmetric, trachea midline, no masses and no thyromegaly . Pulmonary: no increased work of breathing or signs of respiratory distress (more content not included)... Normal [employer] Tobacco Screening.on 022 Fall risk assessment a) No falls within the last year -[facility] [address] [place] Work Phone: Tobacco use status CPHS b) No [place]-[facility] [address] DO Work Phone: NM [...] FARRAH LOGAN Date: 2022-05-12 12:48 Normal [facility] Covid-19 PCR (CVDTB)on SARS-CoV-2 (COVID-19) RNA GUILLERMO+probe Ql (Unsp spec) Not detected Normal NOT DETECTED [facility] Comment on above: Result Comment: This test is not yet approved or cleared by the [place] FDA. When there are no FDA-approved or cleared tests available, and other criteria are met, FDA can make tests available under an emergency access mechanism called an Emergency Use Authorization (EUA). The EUA for this test is supported by the Celery Packer of Health and Human Service's (HHS's) declaration [...] consistent with SARS-CoV-2. Performed By: #### C [facility] #### [facility] [address] [address] [address] Lori Sutton Office Visit (Cardiology)on 03-10-2022 [...] Weight Tips; Status:Complete - Retrospective Authorization; Done: [id number] Some eating tips that can help you lose weight.; Status:Complete - Retrospective Authorization; Done: [id number] Persistent atrial fibrillation IO EKG Electrocardiogram- 12 Lead; Status:Complete; Done: [id number] SocHx: Never a smoker Tobacco Use Screening; Status:Complete; Done: [id number] Patient Instructions Please bring all medicines, vitamins, [...] the above has been addressed by her mold burner Dr. Mota. She reports she underwent esophageal dilatation not too long ago. Her recent device check and EKG today demonstrate maintenance of sinus rhythm. Recent laboratory data showed creatinine 1.6. Previous echocardiogram showed LV systolic function in the normal range and a previous stress test was negative in [place]. Assessment 1. Persistent atrial fibrillation with clinical [...] Medication fentanyl Allergy; STROKE; Recorded By: Ching rCuz; 07/26/2021 2:29:04 PM Sulfa Drugs Allergy; Recorded By: Natalia Lawrence; 06/03/2021 4:10:30 PM Social History Problems Never a smoker No alcohol use No caffeine use No illicit drug use Review of Systems Constitutional: not feeling tired. Cardiovascular: (more content not included)... Normal [employer] Tobacco Screening.on 022 Fall risk assessment a) No falls within the last year [facility] [address] [place] Work Phone: Tobacco use status CPHS b) No [facility] [employer] [address] DO Work Phone: Albumin [Mass/volume] in Ser um or PlasmaOrdered By: John Mims on 03-09-2022 Albumin [Mass/Vol] 3.7 g/dL 3.2-5.5 [facility] Basophils Auto (Bld) [#/Vol] Ordered By: John Mims on 03-09-2022 Basophils (Bld) [#/Vol] 0.0 10*3/uL 0.0-0.2 [facility] Basophils/100 WBC Auto (Bld) Ordered By: John Mims on 03-09-2022 Basophils/100 WBC (Bld) 0.7 % . [facility] Blood hemoglobin measurement (mass/volume)Ordered By: John Mims on 03-09-2022 Hemoglobin (Bld) [Mass/Vol] 13.7 g/dL 11.8-15.4 [facility] Blood leukocytes automated c ount (number/volume)Ordered By: John Mims on 03-09-2022 WBC (Bld) [#/Vol] 6.2 10*3/uL 4.5-11.0 [facility] Creatinine and Glomerular fi ltration rate.predicted panel (S/P/Bld)Ordered By: John Mims on 03-09-2022 Creatinine [Mass/Vol] 1.10 mg/dL 0.44-1.03 [facility] Eosinophils Auto (Bld) [#/Vo l]Ordered By: John Mims on 03-09-2022 Eosinophils (Bld) [#/Vol] 0.3 10*3/uL 0.0-0.45 [facility] Eosinophils/100 WBC Auto (Bl d)Ordered By: John Mims on 03-09-2022 Eosinophils/100 WBC (Bld) 4.2 % . [facility] Erythrocyte distribution wid th Auto (RBC) [Ratio]Ordered By: John Mims on 03-09-2022 Erythrocyte distribution width (RBC) [Ratio] 13.3 % 11.9-15.3 [facility] Estimated glomerular filtrat ion rate (GFR) non- AmericanOrdered By: John Mims on 03-09-2022 GFR/1.73 sq M.predicted among non-blacks MDRD (S/P/Bld) [Vol rate/Area] 48 mL/Min [facility] Globulin Calc (S) [Mass/Vol] Ordered By: John Mims on 03-09-2022 Globulin (S) [Mass/Vol] 2.6 g/dL [facility] Hematocrit Auto (Bld) [Volum e fraction]Ordered By: John Mims on 03-09-2022 Hematocrit (Bld) [Volume fraction] 40.9 % 34.0-46.4 [facility] Laboratory - CoagulationOrde red By: John Mims on 03-09-2022 PT Coag (PPP) [Time] 17.6 s 9.0-12.9 [facility] - Hematology and Cell countsOrdered By: John Mims on 03-09-2022 Nucleated RBC/100 WBC (Bld) [Ratio] 0.0 % 0-0.5 [facility] Lymphocytes Auto (Bld) [#/Vo l]Ordered By: John Mims on 03-09-2022 Lymphocytes (Bld) [#/Vol] 1.1 10*3/uL 1.00-4.8 [facility] Lymphocytes/100 WBC Auto (Bl d)Ordered By: John Mims on 03-09-2022 Lymphocytes/100 WBC (Bld) 17.2 % . [facility] MCH Auto (RBC) [Entitic mass ]Ordered By: John Mims on 03-09-2022 MCH (RBC) [Entitic mass] 30.8 pg 24.7-34.3 [facility] MCHC Auto (RBC) [Mass/Vol]Or dered By: John Mims on 03-09-2022 MCHC (RBC) [Mass/Vol] 33.4 g/dL 32.0-35.0 [facility] MCV Auto (RBC) [Entitic vol] Ordered By: John Mims on 03-09-2022 MCV (RBC) [Entitic vol] 92.2 fL 80-100 [facility] Monocyte %Ordered By: Letty Mims on 03-09-2022 Monocyte % 24 umol/L 11-35 [facility] Monocytes Auto (Bld) [#/Vol] Ordered By: John Mims on 03-09-2022 Monocytes (Bld) [#/Vol] 0.5 10*3/uL 0.0-0.8 [facility] Monocytes/100 WBC Auto (Bld) Ordered By: John Mims on 03-09-2022 Monocytes/100 WBC (Bld) 7.4 % . [facility] Neutrophils Auto (Bld) [#/Vo l]Ordered By: John Mims on 03-09-2022 Neutrophils (Bld) [#/Vol] 4.4 10*3/uL 1.8-7.7 [facility] Neutrophils/100 WBC Auto (Bl d)Ordered By: John Mims on 03-09-2022 Neutrophils/100 WBC (Bld) 70.5 % . [facility] No Panel InformationOrdered By: John Mims on 03-09-2022 Estimated GFR () 58 mL/Min [facility] Comment on above: GFR estimated refere nce range: According to KDOQI guidelines, <60 ml/min/1.73m2 is sufficient to diagnose a patient with chronic kidney disease. Pharmacy Creatinine Clearance (Chem N/A [facility] Platelet mean volume Auto (B ld) [Entitic vol]Ordered By: John Mims on 03-09-2022 Platelet mean volume (Bld) [Entitic vol] 8.5 fL 6.3-10.7 [facility] Platelet poor plasma interna tional normalized ratio (INR) by coagulation assay (relatOrdered By: John Mims on 03-09-2022 INR Coag (PPP) [Relative time] 1.6 {INR} [facility] Comment on above: INR Therapeutic Rang [...] 03-09-2022 Platelets (Bld) [#/Vol] 213 10*3/uL 150-450 [facility] Protein [Mass/volume] in Ser um or PlasmaOrdered By: John Mims on 03-09-2022 Protein [Mass/Vol] 6.3 g/dL 6.1-7.9 [facility] RBC Auto (Bld) [#/Vol]Ordere d By: John Mims on 03-09-2022 RBC (Bld) [#/Vol] 4.44 10*6/uL 3.60-5.00 [facility] Serum or plasma alanine mahmood otransferase measurement without P-5'-P (enzymatic activiOrdered By: John Mims on 03-09-2022 ALT No additional P-5'-P [Catalytic activity/Vol] 23 U/L 10-60 [facility] Serum or plasma albumin/glob ulin mass ratioOrdered By: John Mims on 03-09-2022 Albumin/Globulin [Mass ratio] 1.4 {ratio} [facility] Serum or plasma alkaline mia sphatase measurement (enzymatic activity/volume)Ordered By: John Mims on 03-09-2022 ALP [Catalytic activity/Vol] 98 U/L 32-92 [facility] Serum or plasma aspartate am inotransferase measurement (enzymatic activity/volume)Ordered By: John Mims on 03-09-2022 AST [Catalytic activity/Vol] 27 U/L 10-42 [facility] Serum or plasma calcium mitch urement (mass/volume)Ordered By: John Mims on 03-09-2022 Calcium [Mass/Vol] 9.3 mg/dL 8.2-10.2 [facility] Serum or plasma chloride carlitos surement (moles/volume)Ordered By: John Mims on 03-09-2022 Chloride [Moles/Vol] 106 mmol/L 95-114 [facility] Serum or plasma glucose mitch urement (mass/volume)Ordered By: John Mims on 03-09-2022 Glucose [Mass/Vol] 88 mg/dL 70-100 [facility] Comment on above: ADA recommended refe rence range Random Glucose Reference Range is dependent on time and content of last meal. Glucose of more than 200 mg/dL in a nonstressed, ambulatory subject supports the diagnosis of Diabetes Mellitus. Serum or plasma potassium me asurement (moles/volume)Ordered By: John Mims on 03-09-2022 Potassium [Moles/Vol] 4.6 mmol/L 3.5-5.1 [facility] Serum or plasma sodium measu rement (moles/volume)Ordered By: John Mims on 03-09-2022 Sodium [Moles/Vol] 139 mmol/L 136-146 [facility] Serum or plasma total biliru bin measurement (mass/volume)Ordered By: John Mims on 03-09-2022 Bilirubin [Mass/Vol] 0.9 mg/dL 0.3-1.2 [facility] Serum or plasma total carbon dioxide measurement (moles/volume)Ordered By: John Mims on 03-09-2022 CO2 [Moles/Vol] 23.9 mmol/L 22.0-30.0 [facility] Serum or plasma urea nitroge n measurement (mass/volume)Ordered By: John Mims on 03-09-2022 Urea nitrogen [Mass/Vol] 30 mg/dL 9-23 [facility] TSH DL <= 0.005 mIU/L QnOrde red By: John Mims on 03-09-2022 TSH Qn 1.70 m[IU]/L 0.45-5.33 [facility] Thyroxine (T4) free [Mass/vo lume] in Serum or PlasmaOrdered By: John Umanzorormack on 03-09-2022 Free T4 [Mass/Vol] 1.37 ng/dL 0.61-1.12 [facility] US SINGLE QUAD RT UPPERon US [...] HARDY LIRA Date: 2022-01-25 16:24 Normal [facility] BNPon 01-11-2022 Natriuretic peptide B (Bld) [Mass/Vol] 520.0 pg/mL Normal <=1,800.0 [facility] Comment on above: Performed By: #### B MP, TSH, BNP #### [facility] [address], [place] [address] Dr. Lori Sutton CBC AUTO DIFFon 01-11-2022 BASO # 0.0 103/ul Normal 0.0-0.1 [facility] Comment on above: Performed By: #### C BC ####[facility] [address] [place] [id number]. Lori Sutton Basophils/100 WBC (Bld) 0.5 % Normal 0.2-2.0 [facility] Comment on above: Performed By: #### C BC ####[facility] [address] [place] [id number]. Lori Sutton EO # 0.3 103/ul Normal 0.0-0.7 [facility] Comment on above: Performed By: #### C BC ####[facility] [address] [place] [id number]. Lori Sutton Eosinophils/100 WBC (Bld) 3.9 % Normal 0.9-7.0 [facility] Comment on above: Performed By: #### C BC ####[facility] [address] [place], [place] [address]Dr. Lori Sutton Erythrocyte distribution width (RBC) [Ratio] 14.4 % Normal 11.0-15.0 [facility] Comment on above: Performed By: #### C BC ####[facility] [address] [place] [id number]. Lori Sutton Hematocrit (Bld) [Volume fraction] 42.0 % Normal 36.0-48.0 [facility] Comment on above: Performed By: #### C BC ####[facility] [address] [place] [id number]. Lori Sutton Hemoglobin (Bld) [Mass/Vol] 13.4 g/dL Normal 12.0-16.0 [facility] Comment on above: Performed By: #### C BC ####[facility] [address] [place] [id number]. Lori Sutton IG # 0.04 10e3/ul Critically high 0.00-0.03 [facility] Comment on above: Performed By: #### C BC ####[facility] [address] [place], [place] [address]Dr. Lori Sutton IG % 0.5 % Normal 0.0-0.5 [facility] Comment on above: Performed By: #### C BC ####[facility] [address] [place] [id number]. Lori Sutton LYMPH # 1.7 103/ul Normal 1.2-3.8 [facility] Comment on above: Performed By: #### C BC ####[facility] [address] [place], [place] [address]Xh. Lori Sutton Lymphocytes/100 WBC (Bld) 21.3 % Normal 20.5-60.0 [facility] Comment on above: Performed By: #### C BC ####[facility] [address] [place] [id number]. Lori Herman MANUAL DIFF REQ NO Normal [facility] Comment on above: Performed By: #### C BC ####[facility] [address] [place] [id number]. Lori Sutton MCH (RBC) [Entitic mass] 30.6 pg Normal 26.7-34.0 [facility] Comment on above: Performed By: #### C BC ####[facility] [address] [place] [id number]. Lori Sutton MCHC (RBC) [Mass/Vol] 31.9 g/dL Normal 29.9-35.2 [facility] Comment on above: Performed By: #### C BC ####[facility] [address]beryat[address] [place] [id number]. Lori Sutton MCV (RBC) [Entitic vol] 95.9 fL Normal 81.0-99.0 [facility] Comment on above: Performed By: #### C BC ####[facility] [address] [place] [id number]. Lori Sutton MONO # 0.7 103/ul Normal 0.3-0.8 [facility] Comment on above: Performed By: #### C BC ####[facility] [address] [place] [id number]. Lori Sutton Monocytes/100 WBC (Bld) 8.5 % Normal 1.7-12.0 [facility] Comment on above: Performed By: #### C BC ####[facility] [address]mp[address] [place] [id number]. Estephaniaurbano Sutton NEUT # 5.2 103/ul Normal 1.4-6.5 [facility] Comment on above: Performed By: #### C BC ####[facility] [address] [place] [id number]. Lori Sutton Neutrophils/100 WBC (Bld) 65.3 % Normal 43.0-75.0 [facility] Comment on above: Performed By: #### C BC ####[facility] [address] [place] [id number]. Lori Sutton Platelet mean volume (Bld) [Entitic vol] 10.3 fL Normal 9.5-13.5 [facility] Comment on above: Performed By: #### C BC ####[facility] [address] [place] [id number]. Lori Sutton PLT 230 103/ul Normal 150-450 [facility] Comment on above: Performed By: #### C BC ####[facility] [address]ry[address] [place] [id number]. Lori Sutton RBC 4.38 106/ul Normal 4.20-5.40 [facility] Comment on above: Performed By: #### C BC ####[facility] [address] [place] [id number] Sutton WBC 8.0 103/ul Normal 4.0-11.0 [facility] Comment on above: Performed By: #### C BC ####[facility] [address] [place] [id number]. Lori Sutton PROF CHEM 8 (BAS METB)on Anion gap [Moles/Vol] 14.3 mmol/L Normal [facility] Comment on above: Performed By: #### B MP, TSH, BNP #### [facility] [address], [place] [address] Dr. Lori Sutton Calcium [Mass/Vol] 8.8 mg/dL Normal 8.5-10.1 [facility] Comment on above: Performed By: #### B MP, TSH, BNP #### [facility] [address] [place] [address] [address] Lori Sutton Chloride [Moles/Vol] 103 mmol/L Normal 98-107 [facility] Comment on above: Performed By: #### B MP, TSH, BNP #### [facility] [address] [place] [address] [address] Lori Sutton CO2 [Moles/Vol] 27.5 mmol/L Normal 21.0-32.0 [facility] Comment on above: Performed By: #### B MP, TSH, BNP #### [facility] [address] [place] [address] [address] Lori Sutton Creatinine [Mass/Vol] 1.65 mg/dL Critically high 0.55-1.02 [facility] Comment on above: Performed By: #### B MP, TSH, BNP #### [facility] [address] [place] [address] [address] Lori Sutton EGFR-AF CHILEAN 36 mL/min/1.73m2 Critically low >=60 [facility] Comment on above: Performed By: #### B MP, TSH, BNP #### [facility] [address] [place] [address] [address] Lori Sutton EGFR-NON AF CHILEAN 30 mL/min/1.73m2 Critically low >=60 [facility] Comment on above: Performed By: #### B MP, TSH, BNP #### [facility] [address] [place] [address] [address] Lori Sutton Glucose [Mass/Vol] 88 mg/dL Normal 74-106 [facility] Comment on above: Performed By: #### B MP, TSH, BNP #### [facility] [address] [place] [address] [address] Lori Sutton Potassium [Moles/Vol] 4.8 mmol/L Normal 3.5-5.1 [facility] Comment on above: Performed By: #### B MP, TSH, BNP #### [facility] [address] [place] [address] [address] Lori Sutton Sodium [Moles/Vol] 140 mmol/L Normal 136-145 [facility] Comment on above: Performed By: #### B MP, TSH, BNP #### [facility] [address] [place] [address] [address] Lori Sutton Urea nitrogen [Mass/Vol] 46.0 mg/dL Critically high 7.0-18.0 [facility] Comment on above: Performed By: #### B MP, TSH, BNP #### [facility] [address] [place] [address] [address] Lori Sutton Urea nitrogen/Creatinine [Mass ratio] 27.9 mg/mg Normal [facility] Comment on above: Performed By: #### B MP, TSH, BNP #### [facility] [address] [place] [address] Dr. Lori Sutton TSHon 01-11-2022 TSH 2.012 uIU/mL Normal 0.358-3.74 0 [facility] Comment on above: Performed By: #### B MP, TSH, BNP #### [facility] [address] [place] [address] [address] Lori Sutton TSH RANGE SEE BELOW Normal [facility] Comment on above: Result Comment: <0.3 4 UIU/ml HYPERTHYROID 0.34-5.60 UIU/ml EUTHYROID >5.60 UIU/ml HYPOTHYROID Performed By: #### B MP, TSH, BNP #### [facility] [address] [place] [address] Dr. Lori Sutton XR CHEST 2 Von [...] MACARENA MEHTA Date: 2022-01-11 15:14 Normal [facility] COVID-19 Positive/NegativeOr dered By: John Mims on 12-30-2021 SARS-CoV-2 (COVID-19) N gene GUILLERMO+probe Ql (Resp) Negative Negative [facility] Comment on above: Testing for SARS-CoV -2 by RT-PCR This test was developed and its performance characteristics determined by [employer] and validated at the [facility]. This test has not been FDA [...] a) No falls within the last year [facility] [employer] DO Work Phone: [phone] Tobacco use status CP b) No [facility] [employer] DO Work Phone: Tobacco Screening. Yes [facility] [address] DO Work Phone: RAD - CT Reporton 10-10-2021 RAD - CT Report [id number]#1.00CD:127 Normal [facility] Tobacco Screening.on 021 Fall risk assessment b) One or more fall s in the last year [facility] [employer] DO Work Phone: Tobacco use status CP b) No [facility] [employer] DO Work Phone: [phone] - [address] Reporton 07-24-2021 RAD - CT Report [id number]#1.00CD:127 Normal [facility] Consent for Procedure/Surger yon 07-22-2021 Consent for Procedure/Surgery [id number]#1.00CD:127 Normal [facility] Ambulatory Clinical Summaryo n 07-21-2021 Ambulatory Clinical Summary {[id number]}CD: [id number] Normal [facility] Patient Educationon 07-21-20 21 Patient Education [...] these instructions at home: Medicines ? Take hixw-xux-yenufdo and prescription medicines only as told by [...] 01/22/2009 Document Revised: 12/23/2019 Document Reviewed: 12/23/2019 [employer] Patient Education ? 2019 [employer]. Normal [facility] Urology Office/Clinic Noteon 07-21-2021 Urology Office/Clinic [...] 07/01/2021. Pt. was seen in consult at [facility]. CT done 06/27/2021 shows left hydronephrosis. 12.5 [...] 01/19/[address] [address]- Additional Instructions: KUB Patient Education Kidney Stones, Roji-bq-Eskw I, Leonor Rucker, personally scribed for Dr. [...] Tobacco Use:. Never Smokeless Tobacco Use:., 07/21/2021 [facility] Comment on above: Result Comment: Elec tronically Signed By: Byron ALFONSO MD\.br\Date and Time Signed: 07/21/21 15:17 EST\.br\Electronically Co-Signed By: Leonor Rucker\.br\Date and Time Co-Signed: 07/21/21 15:12 EST Falls Risk Screeningon 07-06 Fall risk assessment a) No falls within the last year [facility] [address] DO Work Phone: Pathology Noteon 07-06-2021 Pathology Note [id number]#1.00CD:127 Normal [facility] Operative Reporton Operative Report [id number]#1.00CD:127 [facility] RAD - MISCon 07-04-2021 RAD - MISC [id number]#1.00CD:127 [facility] Insurance Correspondence Off iceon 07-01-2021 Insurance Correspondence Office [id number]#1.00CD:127 [facility] Consultation Noteon 06-29-20 Consultation Note [id number]#1.00CD:127 [facility] No Panel Informationon 06-24 [facility] [address] [place] Work Phone: 20.44\S\20.44 Normal [facility] [address] [place] Work Phone: Comment on above: PERFORMED BY:[facility] [place] [id number] MEDICAL DIRECTORVITOR ZARATE M.D. 9.0\S\9.0 Normal 8.2-10.2 [facility] [address] [place] Work Phone: 24.1\S\24.1 Normal 22.0-30.0 [facility] [address] [place] Work Phone: 103\S\103 Normal 95-114 [facility] [address] [place] Work Phone: [phone] 4.4\S\4.4 Normal 3.5-5.1 [facility] [place] [address] [place] Work Phone: [phone] 138\S\138 Normal 136-146 [facility] [address] [place] Work Phone: [phone] 31\S\31 Normal [facility] [address] [place] Work Phone: [phone] Comment on above: GFR estimated refere nce range: According to KDOQI guidelines, <60 ml/min/1.73m2 is sufficient to diagnose a patient with chronic kidney disease. 26\S\26 Normal [facility] [address] [place] Work Phone: [phone] 1.88\S\1.88 above high threshold 0.44-1.03 [facility] [address] [place] Work Phone: \S\34 above high threshold 9-23 [facility] [address] [place] Work Phone: [phone] 130\S\130 above high threshold 70-100 [facility] [address] [place] Work Phone: [phone] Comment on above: Random Glucose Refer ence Range is dependent on time and content of last meal. Glucose of more than 200 mg/dL in a nonstressed, ambulatory subject supports the diagnosis of Diabetes Mellitus. ADA recommended reference range No Panel Informationon 06-23 3+ above high threshold Negative [facility] [address] [place] Work Phone: [phone] Negative Normal Negative [facility] [address] [place] Work Phone: [phone] Normal Normal Normal [facility] [address] [place] Work Phone: \S\30 above high threshold Negative [facility] [address] [place] Work Phone: [phone] None Seen Normal 0-8 [facility] [address] [place] Work Phone: Comment on above: PERFORMED BY:[facility] [place], [place] [phone] MEDICAL DIRECTORVITOR ZARATE M.D. 4+ above high threshold Negative -[facility] [address] [place] Work Phone: [phone] 0-1 Normal 0-2 [facility] [address] [place] Work Phone: [phone] Innumerable above high threshold 0-4 -[facility] [address] [place] Work Phone: Positive above high threshold Negative -[facility] [address] [place] Work Phone: [phone] 5.5\S\5.5 Normal 5.0-9.0 -[facility] [address] [place] Work Phone: [phone] 1.015\S\1.015 Normal 1.001-1.03 0 [facility] [address] [place] Work Phone: Turbid Critically abnormal Clear [facility] [address] [place] Work Phone: Yellow Normal Yellow [facility] [address] [place] Work Phone: [facility] [address] [place] Work Phone: 21\S\21 Normal [facility] [address] [place] Work Phone: [phone] 21.8\S\21.8 below low threshold 23.0-27.0 [facility] [address] [place] Work Phone: [phone] 7.2\S\7.2 Normal 6.6-9.7 [facility] [address] [place] Work Phone: [phone] 95.4\S\95.4 Normal 95.0-100.0 [facility] [address] [place] Work Phone: -2.7\S\-2.7 Normal -3.0-3.0 -[facility] [address] [place] Work Phone: 20.8\S\20.8 below low threshold 23.0-29.0 -[facility] [address] [place] Work Phone: 76.9\S\76.9 below low threshold 80.0-100.0 -[facility] [address] [place] Work Phone: 32.1\S\32.1 below low threshold 35.0-45.0 -[facility] [address] [place] Work Phone: 7.43\S\7.43 Normal 7.35-7.45 -[facility] [address] [place] Work Phone: Normal [facility] [address] [place] Work Phone: Comment on above: Critical Value gustafson d on: 06/23/2021 at 13:35PERFORMED BY:[place] [address] [address] [place] [phone] MEDICAL DIRECTORVITOR ZARATE M.D. Right Radial Normal [facility] [address] [place] Work Phone: 24.4\S\24.4 Normal 22.0-30.0 [facility] [address] [place] Work Phone: Comment on above: PERFORMED BY:[facility] [place] [phone] MEDICAL DIRECTORVITOR ZARATE M.D. 104\S\104 Normal 95-114 -[facility] [address] [place] Work Phone: [phone] 4.4\S\4.4 Normal 3.5-5.1 [facility] [address] [place] Work Phone: 141\S\141 Normal 136-146 [facility] [address] [place] Work Phone: [facility] [address] [place] Work Phone: Radiologyon 06-23-2021 Portable XR Chest Views Normal [facility] [address] [place] Work Phone: BASIC METABOLIC PANELon 07-20 Calcium [Mass/Vol] 8.4 mg/dL Low 8.6-10.[address] [facility] Comment on above: Order Comment: No: D o not add to previous draw Pt care Performed By: #### 0 0071 #### [facility] [address] [place] [address], [place] Chloride [Moles/Vol] 105 mmol/L Normal 98-[address] [facility] Comment on above: Order Comment: No: D o not add to previous draw Pt care Performed By: #### 0 0071 #### [facility] [address] [place] [address], [place] CO2 [Moles/Vol] 23 mmol/L Normal 21-[address] [facility] Comment on above: Order Comment: No: D o not add to previous draw Pt care Performed By: #### 0 0071 #### [facility] [address] [place] [address], [place] Creatinine [Mass/Vol] 1.14 mg/dL Normal 0.60-1.[address] [facility] Comment on above: Order Comment: No: D o not add to previous draw Pt care Performed By: #### 0 0071 #### [facility] [address] [place] [address], [place] GFR/1.73 sq M predicted among blacks MDRD (S/P/Bld) [Vol rate/Area] 56 ml/min/1.73sq m Abnormal >[address] [facility] Comment on above: Order Comment: No: D o not add to previous draw Pt care Result Comment: Calc ulation may not be valid for patients over 70 years Performed By: #### 0 0071 #### [facility] [address] [place] [address], [facility] GFR/1.73 sq M predicted among non-blacks MDRD (S/P/Bld) [Vol rate/Area] 46 ml/min/1.73sq m Abnormal >[address] [facility] Comment on above: Order Comment: No: D o not add to previous draw Pt care Result Comment: Calc ulation may not be valid for patients over 70 years Performed By: #### 0 0071 #### [facility] [address] [facility] [address], [facility] Glucose [Mass/Vol] 151 mg/dL High 70-[address] [facility] Comment on above: Order Comment: No: D o not add to previous draw Pt care Performed By: #### 0 0071 #### [facility] [address] [place] [place] [address], [facility] Potassium [Moles/Vol] 3.9 mmol/L Normal 3.5-5.[address] [facility] Comment on above: Order Comment: No: D o not add to previous draw Pt care Performed By: #### 0 0071 #### [facility] [address] [place] [address], [facility] Sodium [Moles/Vol] 139 mmol/L Normal 136-[address] [facility] Comment on above: Order Comment: No: D o not add to previous draw Pt care Performed By: #### 0 0071 #### [facility] [address] [facility] [address], [facility] Urea nitrogen [Mass/Vol] 14 mg/dL Normal 7-[address] [facility] Comment on above: Order Comment: No: D o not add to previous draw Pt care Performed By: #### 0 0071 #### [facility] [address] [place] [address], [facility] CTA CHESTon 07-31-2020 CTA CHEST [facility] Department of Radiology [address] [place] [address] [phone] Patient Name: AUSTIN GOLDEN : 1940 Sex: F Age: Race: White Pt. Location: [id number] Patient Status: D Ordered Date: 07/31/2020 10:25:00 [...] reports Electronically signed: Drew Rios. Transcribed by: [email or web address], User Resident: SANTO LAZO Electronically Signed by: DREW RIOS @ 08/02/2020 09:34 AM I personally read this/these film(s) with this resident Normal [facility] Comment on above: Order Comment: 12 ho urs post vitamin K administration/pre-procedure warfarin reversal No: Do not add to previous draw PROTHROMBIN TIMEon 0 INR Coag (PPP) [Relative time] 1.10 {INR} Normal 0.91-1.[address] [facility] Comment on above: Order Comment: [...] CHEST 1995;108:231S-246S. Performed By: #### 0 0071, [id number] #### [facility] [address] PT Coag (PPP) [Time] 14.2 s Normal 12.3-14.[address] [facility] Comment on above: Order Comment: No: D o not add to previous draw Result Comment: ALL RESULTS MUST BE INTERPRETED WITH RESPECT TO BLOOD DRAWING ARTIFACT OR DILUTION ERROR OF ANTICOAGULANT AT THE TIME OF SAMPLING. Performed By: #### 0 0071, [id number] #### [facility] [address] UFH HEPARIN ASSAYon 07-31-20 20 UNFRACTIONATED HEPARIN 0.32 IU/mL Normal 0.30-0.[address] [facility] Comment on above: Result Comment: [place] roxaban and Apixaban will interfere with the anti Xa assay used to monitor UFH and LMWH. Performed By: #### 0 0071, [id number] #### [facility] [address] URINALYSIS REFLEXon 07-31-20 20 Appearance (U) CLOUDY Abnormal CLEAR [facility] [facility] Comment on above: Order Comment: No: D o not add to previous draw Performed By: #### 5 3629, 51223, 78581 #### [facility] [address] [place] [address], [facility] Bilirubin [Mass/Vol] Negative Normal NEGATIVE [facility] Comment on above: Order Comment: No: D o not add to previous draw Performed By: #### 5 3629, 29560, 57561 #### [facility] [address] [place] [address], [place] BLOOD LARGE Abnormal NEGATIVE [facility] Comment on above: Order Comment: No: D o not add to previous draw Performed By: #### 5 3629, 43747, 44653 #### [facility] [address] [place] [address], [place] Color (U) NEGIN Abnormal YELLOW [facility] Comment on above: Order Comment: No: D o not add to previous draw Performed By: #### 5 3629, 53852, 72232 #### [facility] [address] [place] [address], [place] EPIS MANY Abnormal FEW,OCC,NO NE SEEN [facility] Comment on above: Order Comment: No: D o not add to previous draw Performed By: #### 5 3629, 08911, 46600 #### [facility] [address] [place] [address], [place] Glucose [Mass/Vol] Negative Normal NEGATIVE [facility] Comment on above: Order Comment: No: D o not add to previous draw Performed By: #### 5 3629, 29483, 87716 #### [facility] [address] [place] [address], [place] KETONE Negative Normal NEGATIVE [facility] Comment on above: Order Comment: No: D o not add to previous draw Performed By: #### 5 3629, 83533, 36406 #### [facility] [address] [place] [address], [place] LEUK GEOFFREY MODERATE Abnormal NEGATIVE [facility] Comment on above: Order Comment: No: D o not add to previous draw Performed By: #### 5 3629, 29129, 85982 #### [facility] [address] [place] [address], [place] MUCUS THREADS FEW Abnormal NONE SEEN [facility] Comment on above: Order Comment: No: D o not add to previous draw Performed By: #### 5 3629, 99710, 45734 #### [facility] [address] [place] [address], [facility] Nitrite Ql (U) Positive Abnormal NEGATIVE [facility] Comment on above: Order Comment: No: D o not add to previous draw Performed By: #### 5 3629, 76230, 22422 #### [facility] [address] [address], [facility] pH (Bld) 5.0 Normal 5.0-8.[address] [facility] Comment on above: Order Comment: No: D o not add to previous draw Performed By: #### 5 362, 78614, 45267 #### [facility] [address] [facility] [address] [place] [address], [facility] Protein (U) [Mass/Vol] 100 mg/dL Abnormal NEGATIVE Th e [facility] Comment on above: Order Comment: No: D o not add to previous draw Performed By: #### 5 362, 15924, 19852 #### [facility] [address] [place] [address], [facility] RBC (U) [#/Vol] /uL Abnormal NONE SEEN [facility] Comment on above: Order Comment: No: D o not add to previous draw Performed By: #### 5 362, 03042, 92011 #### [facility] [address] [facility] [place] [address], [facility] SPEC GRAV 1.025 High 1.015-1.[address] [facility] Comment on above: Order Comment: No: D o not add to previous draw Performed By: #### 5 362, 52786, 52336 #### [facility] [address] [place] [address], [facility] WBC UA >100 Abnormal NONE SEEN [facility] Comment on above: Order Comment: No: D o not add to previous draw Performed By: #### 5 3629, 79487, 31513 #### [facility] [address] [place] [address], [facility] BASIC METABOLIC PANELon 12- Calcium [Mass/Vol] 8.1 mg/dL Low 8.6-10.[address] [facility] Comment on above: Order Comment: No: D o not add to previous draw Performed By: #### 0 0071 #### [facility] [address] [place] [address], [place] Chloride [Moles/Vol] 108 mmol/L High 98-[address] [facility] Comment on above: Order Comment: No: D o not add to previous draw Performed By: #### 0 0071 #### [facility] [address] [place] [address], [place] CO2 [Moles/Vol] 24 mmol/L Normal 21-[address] [facility] Comment on above: Order Comment: No: D o not add to previous draw Performed By: #### 0 0071 #### [facility] [address] [place] [address], [place] Creatinine [Mass/Vol] 0.99 mg/dL Normal 0.60-1.[address] [facility] Comment on above: Order Comment: No: D o not add to previous draw Performed By: #### 0 0071 #### [facility] [address] [place] [address], [place] GFR/1.73 sq M predicted among blacks MDRD (S/P/Bld) [Vol rate/Area] mL/min/{1.73_m2} Normal >[address] [facility] Comment on above: Order Comment: No: D o not add to previous draw Result Comment: Calc ulation may not be valid for patients over 70 years Performed By: #### 0 0071 #### [facility] [address] [place] [address], [place] GFR/1.73 sq M predicted among non-blacks MDRD (S/P/Bld) [Vol rate/Area] 54 ml/min/1.73sq m Abnormal >[address] [facility] Comment on above: Order Comment: No: D o not add to previous draw Result Comment: Calc ulation may not be valid for patients over 70 years Performed By: #### 0 0071 #### [facility] [address] [place] [address], [place] Glucose [Mass/Vol] 104 mg/dL High 70-[address] [facility] Comment on above: Order Comment: No: D o not add to previous draw Performed By: #### 0 0071 #### [facility] [address] [place] [address], [place] Potassium [Moles/Vol] 3.5 mmol/L Normal 3.5-5.[address] [facility] Comment on above: Order Comment: No: D o not add to previous draw Performed By: #### 0 0071 #### [facility] [address] [place] [address], [place] Sodium [Moles/Vol] 141 mmol/L Normal 136-[address] [facility] Comment on above: Order Comment: No: D o not add to previous draw Performed By: #### 0 0071 #### [facility] [address] [place] [address], [place] Urea nitrogen [Mass/Vol] 17 mg/dL Normal 7-[address] [facility] Comment on above: Order Comment: No: D o not add to previous draw Performed By: #### 0 0071 #### [facility] [address] [place] [address], [place] CBC COMPLETE BLOOD COUNTon 09-30-2019 Erythrocyte distribution width (RBC) [Ratio] 17.3 % High 11.5-15.[address] [facility] Comment on above: Order Comment: 12 ho urs post vitamin K administration/pre-procedure warfarin reversal No: Do not add to previous draw Performed By: #### 5 [id number] #### [facility] [address] [place] [address], [facility] Hematocrit (Bld) [Volume fraction] 37.7 % Normal 36.0-45.[address] [facility] Comment on above: Order Comment: 12 ho urs post vitamin K administration/pre-procedure warfarin reversal No: Do not add to previous draw Performed By: #### 5 6101 #### [facility] [address] [place] [address], [facility] Hemoglobin (Bld) [Mass/Vol] 12.0 g/dL Normal 12.0-15.[address] [facility] Comment on above: Order Comment: 12 ho urs post vitamin K administration/pre-procedure warfarin reversal No: Do not add to previous draw Performed By: #### 5 6101 #### [facility] [address] [place] [address], [facility] MCH (RBC) [Entitic mass] 29.0 pg Normal 27.0-33.[address] [facility] Comment on above: Order Comment: 12 ho urs post vitamin K administration/pre-procedure warfarin reversal No: Do not add to previous draw Performed By: #### 5 6101 #### [facility] [address] [place] [address], [facility] MCHC (RBC) [Mass/Vol] 31.8 g/dL Low 32.0-35.[address] [facility] Comment on above: Order Comment: 12 ho urs post vitamin K administration/pre-procedure warfarin reversal No: Do not add to previous draw Performed By: #### 5 6101 #### [facility] [address] [place] [address], [facility] MCV (RBC) [Entitic vol] 91.1 fL Normal 82.0-98.[address] [facility] Comment on above: Order Comment: 12 ho urs post vitamin K administration/pre-procedure warfarin reversal No: Do not add to previous draw Performed By: #### 5 6101 #### [facility] [address] [place] [address], [facility] Nucleated RBC/100 WBC (Bld) [Ratio] 0 % Normal 0-[address] [facility] Comment on above: Order Comment: 12 ho urs post vitamin K administration/pre-procedure warfarin reversal No: Do not add to previous draw Performed By: #### 5 6101 #### [facility] [address] [place] [address], [facility] PLAT CNT 233 10*3/uL Normal 150-[address] [facility] Comment on above: Order Comment: 12 ho urs post vitamin K administration/pre-procedure warfarin reversal No: Do not add to previous draw Performed By: #### 5 6101 #### [facility] [address] [place] [address], [facility] RBC (Bld) [#/Vol] 4.14 10*6/uL Normal 3.80-5.[address] [facility] Comment on above: Order Comment: 12 ho urs post vitamin K administration/pre-procedure warfarin reversal No: Do not add to previous draw Performed By: #### 5 6101 #### [facility] [address] [place] [address], [facility] WBC (Bld) [#/Vol] 9.44 10*3/uL Normal 4.00-10.[address] [facility] Comment on above: Order Comment: 12 ho urs post vitamin K administration/pre-procedure warfarin reversal No: Do not add to previous draw Performed By: #### 5 6101 #### [facility] [address] [place] [address], [facility] HEMATOCRITon 07-30-2020 Hematocrit (Bld) [Volume fraction] 43.9 % Normal 36.0-45.[address] [facility] Comment on above: Order Comment: No: D o not add to previous draw Performed By: #### 5 3629, 95997, 99032 #### [facility] [address] [place] [address], [facility] HEMOGLOBINon 07-30-2020 Hemoglobin (Bld) [Mass/Vol] 13.5 g/dL Normal 12.0-15.[address] [facility] Comment on above: Order Comment: No: D o not add to previous draw Performed By: #### 5 3629, 76867, 78865 #### [facility] [address] [facility]. [address] PROTHROMBIN TIMEon 0 INR Coag (PPP) [Relative time] 1.22 {INR} High 0.91-1.[address] [facility] Comment on above: Order Comment: [...] CHEST 1995;108:231S-246S. Performed By: #### 0 0071, 29357 #### [facility] [address] [facility] PT Coag (PPP) [Time] 15.4 s High 12.3-14.[address] [facility] Comment on above: Order Comment: No: D o not add to previous draw Result Comment: ALL RESULTS MUST BE INTERPRETED WITH RESPECT TO BLOOD DRAWING ARTIFACT OR DILUTION ERROR OF ANTICOAGULANT AT THE TIME OF SAMPLING. Performed By: #### 0 007, 82450 #### [facility] [address] [facility] UFH HEPARIN ASSAYon 07-30-20 UNFRACTIONATED HEPARIN 0.45 IU/mL Normal 0.30-0.[address] [facility] Comment on above: Result Comment: [place] roxaban and Apixaban will interfere with the anti Xa assay used to monitor UFH and LMWH. Performed By: #### 0 007, 84196 #### [facility] [address] [place] [address], [facility] UNFRACTIONATED HEPARIN 0.52 IU/mL Normal 0.30-0.[address] [facility] Comment on above: Result Comment: [place] roxaban and Apixaban will interfere with the anti Xa assay used to monitor UFH and LMWH. Performed By: #### 0 0071, 48449 #### [facility] [address] APTTon 07-29-2020 aPTT Coag (Bld) [Time] s Critically high 25.0-35. [address] [facility] Comment on above: Result Comment: [...] RING RN @0210 Performed By: #### 0 007, 99061 #### [facility] [address] [place] [address], [facility] BASIC METABOLIC PANELon 07-20 Calcium [Mass/Vol] 7.4 mg/dL Low 8.6-10.[address] [facility] Comment on above: Order Comment: No: D o not add to previous draw Performed By: #### 0 007, 97522 #### [facility] [address] [place] [address], [facility] Chloride [Moles/Vol] 101 mmol/L Normal 98-[address] [facility] Comment on above: Order Comment: No: D o not add to previous draw Performed By: #### 0 0071, 73235 #### [facility] [address] [place] [address], [place] CO2 [Moles/Vol] 24 mmol/L Normal 21-[address] [facility] Comment on above: Order Comment: No: D o not add to previous draw Performed By: #### 0 0071, 19116 #### [facility] [address] [place] [address], [place] Creatinine [Mass/Vol] 1.02 mg/dL Normal 0.60-1.[address] [facility] Comment on above: Order Comment: No: D o not add to previous draw Performed By: #### 0 0071, 44124 #### [facility] [address] [place] [address], [place] GFR/1.73 sq M predicted among blacks MDRD (S/P/Bld) [Vol rate/Area] mL/min/{1.73_m2} Normal >[address] [facility] Comment on above: Order Comment: No: D o not add to previous draw Result Comment: Calc ulation may not be valid for patients over 70 years Performed By: #### 0 0071, 28978 #### [facility] [address] [place] [address], [place] GFR/1.73 sq M predicted among non-blacks MDRD (S/P/Bld) [Vol rate/Area] 53 ml/min/1.73sq m Abnormal >[address] [facility] Comment on above: Order Comment: No: D o not add to previous draw Result Comment: Calc ulation may not be valid for patients over 70 years Performed By: #### 0 0071, 09137 #### [facility] [address] [place] [address], [place] Glucose [Mass/Vol] 314 mg/dL High 70-[address] [facility] Comment on above: Order Comment: No: D o not add to previous draw Performed By: #### 0 0071, 55322 #### [facility] [address] [facility] [place] [address], [facility] Potassium [Moles/Vol] 3.1 mmol/L Low 3.5-5.[address] [facility] Comment on above: Order Comment: No: D o not add to previous draw Performed By: #### 0 0071, 52930 #### [facility] [address] [facility] [place] [address], [facility] Sodium [Moles/Vol] 139 mmol/L Normal 136-[address] [facility] Comment on above: Order Comment: No: D o not add to previous draw Performed By: #### 0 0071, 39527 #### [facility] [address] [place] [place] [address], [facility] Urea nitrogen [Mass/Vol] 15 mg/dL Normal 7-[address] [facility] Comment on above: Order Comment: No: D o not add to previous draw Performed By: #### 0 0071, 26947 #### [facility] [address] [facility] [address], [facility] MAGNESIUM BLOODon 07-29-2020 Magnesium [Mass/Vol] 1.5 mg/dL Low 1.9-2.[address] [facility] Comment on above: Order Comment: No: D o not add to previous draw Performed By: #### 0 0071, 22956 #### [facility] [address] [facility] [address], [facility] PORTABLE CHEST 1 VIEWon 07-20 PORTABLE CHEST 1 VIEW [facility] Department of Radiology [address] [place] [address] Patient Name: AUSTIN GOLDEN : 1940 Sex: F Age: Race: White Pt. Location: [address] [place] [address] Patient Status: I Ordered Date: 07/29/2020 8:25:00 [...] atelectasis. Electronically signed: Emmanuel Armas. Transcribed by: [email or web address], User Resident: Electronically Signed by: EMMANUEL ARMAS @ 07/29/2020 09:41 AM Normal [facility] Comment on above: Order Comment: 12 ho urs post vitamin K administration/pre-procedure warfarin reversal No: Do not add to previous draw PROTHROMBIN TIMEon 0 INR Coag (PPP) [Relative time] 1.45 {INR} High 0.91-1.[address] [facility] Comment on above: Order Comment: No: D o not add to previous draw Result Comment: [facility] P RECOMMENDED INR FOR WARFARIN [...] CHEST 1995;108:231S-246S. Performed By: #### 0 0071, 80436 #### [facility] [address] PT Coag (PPP) [Time] 17.7 s High 12.3-14.[address] [facility] Comment on above: Order Comment: No: D o not add to previous draw Result Comment: ALL RESULTS MUST BE INTERPRETED WITH RESPECT TO BLOOD DRAWING ARTIFACT OR DILUTION ERROR OF ANTICOAGULANT AT THE TIME OF SAMPLING. Performed By: #### 0 0071, 77599 #### [facility] [address] UFH HEPARIN ASSAYon 07-29-20 20 UNFRACTIONATED HEPARIN 0.89 IU/mL High 0.30-0.[address] [facility] Comment on above: Result Comment: [place] roxaban and Apixaban will interfere with the anti Xa assay used to monitor UFH and LMWH. Performed By: #### 0 0071, 56837 #### [facility] [address] [place] [address], [facility] UNFRACTIONATED HEPARIN 0.78 IU/mL High 0.30-0.[address] [facility] Comment on above: Result Comment: [place] roxaban and Apixaban will interfere with the anti Xa assay used to monitor UFH and LMWH. Performed By: #### 0 0071, 61112 #### [facility] [address] [place] [address], [facility] UNFRACTIONATED HEPARIN >1.00 Critically high 0.30-0.[address] [facility] Comment on above: Order Comment: 12 ho urs post vitamin K administration/pre-procedure warfarin reversal No: Do not add to previous draw Result Comment: [place] roxaban and Apixaban will interfere with the anti Xa assay used to monitor UFH and LMWH. UFH=1.22 RESULTS CHECKED AND CALLED. ACCURATELY READ BACK BY SAEID RING RN @0210 Performed By: #### 5 6101 #### [facility] [address] [place] [address], [facility] BASIC METABOLIC PANELon 12-0 Calcium [Mass/Vol] 8.5 mg/dL Low 8.6-10.[address] [facility] Comment on above: Order Comment: No: D o not add to previous draw Performed By: #### 0 0071 #### [facility] [address] [place] [address], [facility] Chloride [Moles/Vol] 108 mmol/L High 98-[address] [facility] Comment on above: Order Comment: No: D o not add to previous draw Performed By: #### 0 0071 #### [facility] [address] [place] [address], [facility] CO2 [Moles/Vol] 24 mmol/L Normal 21-[address] [facility] Comment on above: Order Comment: No: D o not add to previous draw Performed By: #### 0 0071 #### [facility] [address] [place] [address], [facility] Creatinine [Mass/Vol] 1.03 mg/dL Normal 0.60-1.[address] [facility] Comment on above: Order Comment: No: D o not add to previous draw Performed By: #### 0 0071 #### [facility] [address] [place] [address], [place] GFR/1.73 sq M predicted among blacks MDRD (S/P/Bld) [Vol rate/Area] mL/min/{1.73_m2} Normal >[address] [facility] Comment on above: Order Comment: No: D o not add to previous draw Result Comment: Calc ulation may not be valid for patients over 70 years Performed By: #### 0 0071 #### [facility] [address] [place] [address], [facility] GFR/1.73 sq M predicted among non-blacks MDRD (S/P/Bld) [Vol rate/Area] 52 ml/min/1.73sq m Abnormal >[address] [facility] Comment on above: Order Comment: No: D o not add to previous draw Result Comment: Calc ulation may not be valid for patients over 70 years Performed By: #### 0 0071 #### [facility] [address] [place] [address], [place] Glucose [Mass/Vol] 120 mg/dL High 70-[address] [facility] Comment on above: Order Comment: No: D o not add to previous draw Performed By: #### 0 0071 #### [facility] [address] [place] [address], [place] Potassium [Moles/Vol] 3.7 mmol/L Normal 3.5-5.[address] [facility] Comment on above: Order Comment: No: D o not add to previous draw Performed By: #### 0 0071 #### [facility] [address] [place] [address], [place] Sodium [Moles/Vol] 141 mmol/L Normal 136-[address] [facility] Comment on above: Order Comment: No: D o not add to previous draw Performed By: #### 0 0071 #### [facility] [address] [place] [address], [place] Urea nitrogen [Mass/Vol] 24 mg/dL Normal 7-[address] [facility] Comment on above: Order Comment: No: D o not add to previous draw Performed By: #### 0 0071 #### [facility] [address] [place] [address], [facility] CBC COMPLETE BLOOD COUNTon 09-28-2019 Erythrocyte distribution width (RBC) [Ratio] 16.9 % High 11.5-15.[address] [facility] Comment on above: Order Comment: 12 ho urs post vitamin K administration/pre-procedure warfarin reversal No: Do not add to previous draw Performed By: #### 5 6101 #### [facility] [address] [place] [address], [facility] Hematocrit (Bld) [Volume fraction] 40.8 % Normal 36.0-45.[address] [facility] Comment on above: Order Comment: 12 ho urs post vitamin K administration/pre-procedure warfarin reversal No: Do not add to previous draw Performed By: #### 5 6101 #### [facility] [address] [place] [address], [facility] Hemoglobin (Bld) [Mass/Vol] 12.6 g/dL Normal 12.0-15.[address] [facility] Comment on above: Order Comment: 12 ho urs post vitamin K administration/pre-procedure warfarin reversal No: Do not add to previous draw Performed By: #### 5 6101 #### [facility] [address] [place] [address], [facility] MCH (RBC) [Entitic mass] 28.5 pg Normal 27.0-33.[address] [facility] Comment on above: Order Comment: 12 ho urs post vitamin K administration/pre-procedure warfarin reversal No: Do not add to previous draw Performed By: #### 5 [id number] #### [facility] [address] [place] [address], [facility] MCHC (RBC) [Mass/Vol] 30.9 g/dL Low 32.0-35.[address] [facility] Comment on above: Order Comment: 12 ho urs post vitamin K administration/pre-procedure warfarin reversal No: Do not add to previous draw Performed By: #### 5 [id number] #### [facility] [address] [place] [address], [facility] MCV (RBC) [Entitic vol] 92.3 fL Normal 82.0-98.[address] [facility] Comment on above: Order Comment: 12 ho urs post vitamin K administration/pre-procedure warfarin reversal No: Do not add to previous draw Performed By: #### 5 [id number] #### [facility] [address] [place] [address], [facility] Nucleated RBC/100 WBC (Bld) [Ratio] 1 % High 0-[address] [facility] Comment on above: Order Comment: 12 ho urs post vitamin K administration/pre-procedure warfarin reversal No: Do not add to previous draw Performed By: #### 5 [id number] #### [facility] [address] [place] [address], [facility] PLAT CNT 245 10*3/uL Normal 150-[address] [facility] Comment on above: Order Comment: 12 ho urs post vitamin K administration/pre-procedure warfarin reversal No: Do not add to previous draw Performed By: #### 5 [id number] #### [facility] [address] [place] [address], [facility] RBC (Bld) [#/Vol] 4.42 10*6/uL Normal 3.80-5.[address] [facility] Comment on above: Order Comment: 12 ho urs post vitamin K administration/pre-procedure warfarin reversal No: Do not add to previous draw Performed By: #### 5 [id number] #### [facility] [address] [place] [address], [place] WBC (Bld) [#/Vol] 9.82 10*3/uL Normal 4.00-10.[address] [facility] Comment on above: Order Comment: 12 ho urs post vitamin K administration/pre-procedure warfarin reversal No: Do not add to previous draw Performed By: #### 5 [id number] #### [facility] [address] [place] [address], [facility] CT BRAIN WO CONTRASTon 07-28 CT BRAIN WO CONTRAST [facility] Department of Radiology [address] [place] [address] Patient Name: AUSTIN GOLDEN : 1940 Sex: F Age: Race: White Pt. 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 Electronically signed: Sukhdev Javier. Transcribed by: [email or web address], User Resident: Electronically Signed by: SUKHDEV JAVIER @ 07/28/2020 04:48 PM Normal [facility] Comment on above: Order Comment: 12 ho urs post vitamin K administration/pre-procedure warfarin reversal No: Do not add to previous draw CTA HEADon 07-28-[address] [facility] Department of Radiology [address] [place] [id number] Patient Name: AUSTIN GOLDEN : 1940 Sex: F Age: Race: White Pt. 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 Electronically signed: Sukhdev Javier. Transcribed by: [email or web address], User Resident: Electronically Signed by: SUKHDEV JAVIER @ 07/28/2020 05:16 PM Normal [facility] Comment on above: Order Comment: No: D o not add to previous draw CTA NECKon 07-28-[address] [facility] Department of Radiology [address] [place] [id number] Patient Name: AUSTIN GOLDEN : 1940 Sex: F Age: Race: White Pt. Location: [id number] Patient Status: I Ordered Date: 07/28/2020 4:35:00 PM Completed Date: 07/28/2020 05:11 PM Requesting Provider: ABHILASH GO Attending Provider: JELANI SORIA Report Copy To: Signs & Symptoms: stroke alert in entry level lab technician post vira History: stroke alert in entry level lab technician post vira Comments: stroke alert in entry level lab technician post vira Exam: CTA NECK CTA NECK 07/28/2020 5:11 PM CLINICAL INDICATIONS: stroke alert in entry level lab technician post vira TECHNOLOGIST COMMENTS: post vira stroke alert weakness QUESTION FOR THE RADIOLOGIST: stroke alert in entry level lab technician post vira PROTOCOL: Axial CT angiography images were obtained with IV contrast. CONTRAST: TECHNIQUE: Multi-detector CT angiography axial slices of the neck were obtained during intravenous administration of IV contrast material. Sagittal, coronal, and 3-D reconstructions were performed and viewed on a separate workstation. The [place] Symptomatic Carotid Endarterectomy Trial (NASCET) method for [...] achievable Electronically signed: Sukhdev Javier. Transcribed by: [email or web address], User Resident: Electronically Signed by: SUKHDEV JAVIER @ 07/28/2020 05:19 PM Normal [facility] Comment on above: Order Comment: No: D o not add to previous draw Cardiovascular Lab Reporton 07-28-2020 Cardiovascular Lab Report [facility] Patient Name: [facility] Maggy MR #: [id number] Department of Physician: Sanjuana Carrero Medicine M.Vannesa Division of Service Date: 07/28/2020 Cardiology Birthdate: 1940 Adult Cardiovascular Room #: 3AB [id number] [place] [address] Cardiovascular Laboratory Report PROCEDURE PERFORMED: Transesophageal echocardiogram and cardioversion. INDICATION: Atrial fibrillation. FELLOW: Hiwot Owens M.D. PROCEDURE IN DETAIL: An informed consent was obtained from the patient after explaining indications, risks and benefits, and alternatives. The patient understood and agreed and signed the consent form. The patient was brought to the entry level lab technician and transesophageal echocardiogram was performed [...] Owens MD Date Trans: 07/28/2020 04:12 P/boaz [id number] cc: Jazmin العلي D.O. [address] [place] [id number] Normal [address] [facility] PROTHROMBIN TIMEon 0 INR Coag (PPP) [Relative time] 1.67 {INR} High 0.91-1.[address] [facility] Comment on above: Order Comment: [...] CHEST 1995;108:231S-246S. Performed By: #### 0 0071, [id number] #### [facility] [address] [place] [address], [facility] PT Coag (PPP) [Time] 19.7 s High 12.3-14.[address] [facility] Comment on above: Order Comment: No: D o not add to previous draw Result Comment: ALL RESULTS MUST BE INTERPRETED WITH RESPECT TO BLOOD DRAWING ARTIFACT OR DILUTION ERROR OF ANTICOAGULANT AT THE TIME OF SAMPLING. Performed By: #### 0 0071, 28875 #### [facility] [address] [place] [address], [place] INR Coag (PPP) [Relative time] 1.85 {INR} High 0.91-1.[address] [facility] Comment on above: Order Comment: [...] 1995;108:231S-246S. Performed By: #### 5 6101 #### [facility] [address] [place] [address], [facility] PT Coag (PPP) [Time] 21.4 s High 12.3-14.[address] [facility] Comment on above: Order Comment: 12 ho urs post vitamin K administration/pre-procedure warfarin reversal No: Do not add to previous draw Result Comment: ALL RESULTS MUST BE INTERPRETED WITH RESPECT TO BLOOD DRAWING ARTIFACT OR DILUTION ERROR OF ANTICOAGULANT AT THE TIME OF SAMPLING. Performed By: #### 5 6101 #### [facility] [address] [place] [address], [facility] UFH HEPARIN ASSAYon 07-28-20 20 UNFRACTIONATED HEPARIN >1.00 Critically high 0.30-0.[address] [facility] Comment on above: Result Comment: Aracelis roxaban and Apixaban will interfere with the anti Xa assay used to monitor UFH and LMWH. Results called. Accurately read back by Khushbu Benninghoff RN at 1415. Patient given a bolus of heparin prior to draw, causing elevated heparin levels Performed By: #### 5 [id number] #### [facility] [address] [facility]. [address] UNFRACTIONATED HEPARIN 0.38 IU/mL Normal 0.30-0.[address] [facility] Comment on above: Result Comment: [place]is roxaban and Apixaban will interfere with the anti Xa assay used to monitor UFH and LMWH. Performed By: #### 0 0071, 50507 #### [facility] [address] [facility] [address], [facility] APTTon 07-27-2020 aPTT Coag (Bld) [Time] 39.6 s High 25.0-35.[address] [facility] Comment on above: Order Comment: [...] THIS PURPOSE. Performed By: #### 5 3629, 34702, 01402 #### [facility] [address] [facility] [place] [address], [facility] aPTT Coag (Bld) [Time] 47.4 s High 25.0-35.[address] [facility] Comment on above: Result Comment: [...] PURPOSE. Performed By: #### 5 6101 #### [facility] [address] [place] [address], [facility] LIPID PROFILEon 07-27-2020 Cholesterol [Mass/Vol] 173 mg/dL Normal 120-[address] [facility] Comment on above: Result Comment: CHOL ESTEROL REFERENCE RANGE: 20 YEARS AND OLDER CARDIOVASCULAR RISK Less than 200 mg/dl Low Risk 200 to 239 mg/dl Borderline Risk 240 mg/dl and greater High Risk Performed By: #### 5 3629, 17382, 79798 #### [facility] [address] [place] [address], [place] Cholesterol in HDL [Mass/Vol] 33 mg/dL Normal 23-[address] [facility] Comment on above: Result Comment: Slig ht variation in normal range could be due to gender and/or age. HDL CHOLESTEROL REFERENCE RANGE: 20 years and older Cardiovascular Risk > or =60 mg/dL Desirable 40 TO 59 mg/dL Low Risk <40 mg/dL High Risk Performed By: #### 5 3629, 75620, 88994 #### [facility] [address] [place] [address], [place] Cholesterol in LDL [Mass/Vol] 98 mg/dL Normal 0-[address] [facility] Comment on above: Result Comment: LDL IS A CALCULATION LDL IS ONLY VALID IF THE TRIG IS LESS THAN 400. Performed By: #### 5 3629, 55327, 72982 #### [facility] [address] [place] [address], [place] Cholesterol.total/Chol esterol in HDL [Mass ratio] 5.2 {ratio} High 0.0-4.[address] [facility] Comment on above: Performed By: #### 5 3629, 90220, 20484 #### [facility] [address] [place] [address], [place] NON-HDL CHOLESTEROL 140 mg/dL Normal [facility] Comment on above: Performed By: #### 5 3629, 36412, 30448 #### [facility] [address] [place] [address], [place] Triglyceride [Mass/Vol] 210 mg/dL High 40-[address] [facility] Comment on above: Result Comment: TRIG LYCERIDE REFERENCE RANGE: 20 YEARS AND OLDER CARDIOVASCULAR RISK LESS THAN 150 mg/dl LOW RISK 150 TO 199 mg/dl BORDERLINE RISK 200 mg/dl AND GREATER HIGH RISK Performed By: #### 5 3629, 66443, 38130 #### [facility] [address] VLDL CHOL 42 mg/dL High 0-[address] [facility] Comment on above: Performed By: #### 5 3629, 12618, 21295 #### [facility] [address] PROTHROMBIN TIMEon 0 INR Coag (PPP) [Relative time] 2.07 {INR} High 0.91-1.[address] [facility] Comment on above: Result Comment: [...] CHEST 1995;108:231S-246S. Performed By: #### 5 3629, 54885, 79662 #### [facility] [address] [facility] PT Coag (PPP) [Time] 23.4 s High 12.3-14.[address] [facility] Comment on above: Result Comment: ALL RESULTS MUST BE INTERPRETED WITH RESPECT TO BLOOD DRAWING ARTIFACT OR DILUTION ERROR OF ANTICOAGULANT AT THE TIME OF SAMPLING. Performed By: #### 5 3629, 45256, 53645 #### [facility] [address] [facility] [place] [address], [facility] INR Coag (PPP) [Relative time] 3.07 {INR} High 0.91-1.[address] [facility] Comment on above: Order Comment: [...] 1995;108:231S-246S. Performed By: #### 5 6101 #### [facility] [address] [facility] [place] [address], [facility] PT Coag (PPP) [Time] 32.0 s High 12.3-14.[address] [facility] Comment on above: Order Comment: 12 ho urs post vitamin K administration/pre-procedure warfarin reversal No: Do not add to previous draw Result Comment: ALL RESULTS MUST BE INTERPRETED WITH RESPECT TO BLOOD DRAWING ARTIFACT OR DILUTION ERROR OF ANTICOAGULANT AT THE TIME OF SAMPLING. Performed By: #### 5 6101 #### [facility] [address] [place] [address], [facility] TROPONIN-Ion 07-27-2020 Troponin I.cardiac [Mass/Vol] 0.01 ng/mL Normal 0.00-0.[address] [facility] Comment on above: Order Comment: No: D o not add to previous draw Result Comment: REFE RENCE RANGES: 0.00 - 0.04 ng/ml NORMAL 0.05 - 0.50 ng/ml INDETERMINATE > 0.50 ng/ml CONSISTENT WITH AN M.I. Performed By: #### 5 3629, 79687, 58934 #### [facility] [address] UFH HEPARIN ASSAYon 07-27-20 20 UNFRACTIONATED HEPARIN <0.10 Critically low 0.30-0.[address] [facility] Comment on above: Result Comment: [place] roxaban and Apixaban will interfere with the anti Xa assay used to monitor UFH and LMWH. RESULTS CHECKED AND CALLED. ACCURATELY READ BACK BY Saeid Lees RN at 2122. Performed By: #### 5 3629, 95657, 32530 #### [facility] [address] [facility] APTTon 07-26-2020 aPTT Coag (Bld) [Time] 44.0 s High 25.0-35.[address] [facility] Comment on above: Order Comment: [...] THIS PURPOSE. Performed By: #### 5 3629, 15914, 36990 #### [facility] [address] [facility] BASIC METABOLIC PANELon Calcium [Mass/Vol] 8.4 mg/dL Low 8.6-10.[address] [facility] Comment on above: Order Comment: No: D o not add to previous draw Performed By: #### 5 3629, 26407, 99499 #### [facility] [address] [place] [address], [place] Chloride [Moles/Vol] 107 mmol/L Normal 98-[address] [facility] Comment on above: Order Comment: No: D o not add to previous draw Performed By: #### 5 3629, 24266, 38982 #### [facility] [address] [place] [address], [place] CO2 [Moles/Vol] 23 mmol/L Normal 21-[address] [facility] Comment on above: Order Comment: No: D o not add to previous draw Performed By: #### 5 3629, 67268, 78505 #### [facility] [address] [place] [address], [place] Creatinine [Mass/Vol] 1.00 mg/dL Normal 0.60-1.[address] [facility] Comment on above: Order Comment: No: D o not add to previous draw Performed By: #### 5 3629, 73052, 08686 #### [facility] [address] [place] [address], [place] GFR/1.73 sq M predicted among blacks MDRD (S/P/Bld) [Vol rate/Area] mL/min/{1.73_m2} Normal >[address] [facility] Comment on above: Order Comment: No: D o not add to previous draw Result Comment: Calc ulation may not be valid for patients over 70 years Performed By: #### 5 3629, 17007, 90592 #### [facility] [address] [place] [address], [place] GFR/1.73 sq M predicted among non-blacks MDRD (S/P/Bld) [Vol rate/Area] 53 ml/min/1.73sq m Abnormal >[address] [facility] Comment on above: Order Comment: No: D o not add to previous draw Result Comment: Calc ulation may not be valid for patients over 70 years Performed By: #### 5 3629, 87213, 76969 #### [facility] [address] [place] [address], [facility] Glucose [Mass/Vol] 144 mg/dL High 70-[address] [facility] Comment on above: Order Comment: No: D o not add to previous draw Performed By: #### 5 3629, 41331, 33567 #### [facility] [address] [place] [address], [place] Potassium [Moles/Vol] 3.9 mmol/L Normal 3.5-5.[address] [facility] Comment on above: Order Comment: No: D o not add to previous draw Performed By: #### 5 3629, 11454, 54107 #### [facility] [address] [place] [address], [facility] Sodium [Moles/Vol] 139 mmol/L Normal 136-[address] [facility] Comment on above: Order Comment: No: D o not add to previous draw Performed By: #### 5 3629, 03011, 53508 #### [facility] [address] [place] [address], [facility] Urea nitrogen [Mass/Vol] 24 mg/dL Normal 7-[address] [facility] Comment on above: Order Comment: No: D o not add to previous draw Performed By: #### 5 3629, 89537, 81842 #### [facility] [address] [place] [address], [facility] BNP (B-TYPE NATRIURETIC PEPT BALTA)on 07-26-2020 Natriuretic peptide B (Bld) [Mass/Vol] 259 pg/mL High 0-[address] [facility] Comment on above: Order Comment: No: D o not add to previous draw Result Comment: Give n the appropriate clinical setting a BNP result of >100 pg/mL indicates congestive heart failure. Performed By: #### 5 3629, 04721, 56381 #### [facility] [address] [place] [id number], [facility] CBC W/DIFFon 07-26-2020 ABS BASOPHILS 0.1 10*3/uL Normal 0.0-0.[address] [facility] Comment on above: Order Comment: 12 ho urs post vitamin K administration/pre-procedure warfarin reversal No: Do not add to previous draw Performed By: #### 5 6101 #### [facility] [address] [place] [address], [facility] ABS IMM GRANS 0.3 10*3/uL High 0.0-0.[address] [facility] Comment on above: Order Comment: 12 ho urs post vitamin K administration/pre-procedure warfarin reversal No: Do not add to previous draw Performed By: #### 5 6101 #### [facility] [address] [facility] [place] [address], [facility] ABS NEUTROPHILS 5.9 10*3/uL Normal 1.6-7.[address] [facility] Comment on above: Order Comment: 12 ho urs post vitamin K administration/pre-procedure warfarin reversal No: Do not add to previous draw Performed By: #### 5 6101 #### [facility] [address] [facility] [place] [address], [facility] Basophils/100 WBC (Bld) 0.8 % Normal 0.0-1.[address] [facility] Comment on above: Order Comment: 12 ho urs post vitamin K administration/pre-procedure warfarin reversal No: Do not add to previous draw Performed By: #### 5 6101 #### [facility] [address] [place] [place] [address], [facility] Eosinophils (Bld) [#/Vol] 0.4 10*3/uL Normal 0.0-0.[address] [facility] Comment on above: Order Comment: 12 ho urs post vitamin K administration/pre-procedure warfarin reversal No: Do not add to previous draw Performed By: #### 5 6101 #### [facility] [address] [place] [address], [facility] Eosinophils/100 WBC (Bld) 3.8 % Normal 0.0-6.[address] [facility] Comment on above: Order Comment: 12 ho urs post vitamin K administration/pre-procedure warfarin reversal No: Do not add to previous draw Performed By: #### 5 6101 #### [facility] [address] [place] [address], [facility] Erythrocyte distribution width (RBC) [Ratio] 16.9 % High 11.5-15.[address] [facility] Comment on above: Order Comment: 12 ho urs post vitamin K administration/pre-procedure warfarin reversal No: Do not add to previous draw Performed By: #### 5 6101 #### [facility] [address] [place] [address], [facility] Hematocrit (Bld) [Volume fraction] 43.8 % Normal 36.0-45.[address] [facility] Comment on above: Order Comment: 12 ho urs post vitamin K administration/pre-procedure warfarin reversal No: Do not add to previous draw Performed By: #### 5 6101 #### [facility] [address] Hemoglobin (Bld) [Mass/Vol] 13.7 g/dL Normal 12.0-15.[address] [facility] Comment on above: Order Comment: 12 ho urs post vitamin K administration/pre-procedure warfarin reversal No: Do not add to previous draw Performed By: #### 5 6101 #### [facility] [address] [place] [address], [facility] IMMATURE GRANS 3.6 % High 0.0-1.[address] [facility] Comment on above: Order Comment: 12 ho urs post vitamin K administration/pre-procedure warfarin reversal No: Do not add to previous draw Performed By: #### 5 6101 #### [facility] [address] [place] [address], [facility] Lymphocytes (Bld) [#/Vol] 2.1 10*3/uL Normal 1.2-4.[address] [facility] Comment on above: Order Comment: 12 ho urs post vitamin K administration/pre-procedure warfarin reversal No: Do not add to previous draw Performed By: #### 5 [id number] #### [facility] [address] [place] [address], [facility] Lymphocytes/100 WBC (Bld) 22.0 % Normal 20.0-45.[address] [facility] Comment on above: Order Comment: 12 ho urs post vitamin K administration/pre-procedure warfarin reversal No: Do not add to previous draw Performed By: #### 5 6101 #### [facility] [address] [place] [address], [facility] MCH (RBC) [Entitic mass] 29.0 pg Normal 27.0-33.0 The [facility] Comment on above: Order Comment: 12 ho urs post vitamin K administration/pre-procedure warfarin reversal No: Do not add to previous draw Performed By: #### 5 [id number] #### [facility] [address] [place] [address], [facility] MCHC (RBC) [Mass/Vol] 31.3 g/dL Low 32.0-35.[address] [facility] Comment on above: Order Comment: 12 ho urs post vitamin K administration/pre-procedure warfarin reversal No: Do not add to previous draw Performed By: #### 5 [id number] #### [facility] [address] [place] [address], [facility] MCV (RBC) [Entitic vol] 92.6 fL Normal 82.0-98.[address] [facility] Comment on above: Order Comment: 12 ho urs post vitamin K administration/pre-procedure warfarin reversal No: Do not add to previous draw Performed By: #### 5 [id number] #### [facility] [address] [place] [place] [address], [facility] Monocytes (Bld) [#/Vol] 0.7 10*3/uL Normal 0.1-1.[address] [facility] Comment on above: Order Comment: 12 ho urs post vitamin K administration/pre-procedure warfarin reversal No: Do not add to previous draw Performed By: #### 5 [id number] #### [facility] [address] [facility] [place] [id number], [facility] MONOS 7.5 % Normal 5.0-12.[address] [facility] Comment on above: Order Comment: 12 ho urs post vitamin K administration/pre-procedure warfarin reversal No: Do not add to previous draw Performed By: #### 5 [id number] #### [facility] [address] [place] [address], [facility] Neutrophils/100 WBC (Bld) 62.3 % Normal 40.0-72.[address] [facility] Comment on above: Order Comment: 12 ho urs post vitamin K administration/pre-procedure warfarin reversal No: Do not add to previous draw Performed By: #### 5 [id number] #### [facility] [address] [place] [address], [facility] Nucleated RBC/100 WBC (Bld) [Ratio] 1 % High 0-[address] [facility] Comment on above: Order Comment: 12 ho urs post vitamin K administration/pre-procedure warfarin reversal No: Do not add to previous draw Performed By: #### 5 [id number] #### [facility] [address] [place] [address], [place] PLAT CNT 296 10*3/uL Normal 150-[address] [facility] Comment on above: Order Comment: 12 ho urs post vitamin K administration/pre-procedure warfarin reversal No: Do not add to previous draw Performed By: #### 5 [id number] #### [facility] [address] [place] [address], [facility] RBC (Bld) [#/Vol] 4.73 10*6/uL Normal 3.80-5.[address] [facility] Comment on above: Order Comment: 12 ho urs post vitamin K administration/pre-procedure warfarin reversal No: Do not add to previous draw Performed By: #### 5 [id number] #### [facility] [address] [place] [address], [place] WBC (Bld) [#/Vol] 9.48 10*3/uL Normal 4.00-10.[address] [facility] Comment on above: Order Comment: 12 ho urs post vitamin K administration/pre-procedure warfarin reversal No: Do not add to previous draw Performed By: #### 5 [id number] #### [facility] [address] CPK-MB PROFILEon 07-26-2020 CK [Catalytic activity/Vol] 24 U/L Low 30-[address] [facility] Comment on above: Order Comment: No: D o not add to previous draw Performed By: #### 1 0070, 88263, 07858, 01356, 35306, 89792 #### [facility] [address] CK.MB [Mass/Vol] 1.5 ng/mL Normal 0.0-5.[address] [facility] Comment on above: Order Comment: No: D o not add to previous draw Result Comment: IF T OTAL CK <200 U/L AND: 1. CKMB IS 5-10 NG/ML----BORDERLINE 2. CKMB IS >10 NG/ML----INDICATIVE OF [place] OR IF TOTAL CK >200 U/L AND CKMB INDEX >1.9----INDICATIVE OF [place] Performed By: #### 1 0070, 51067, 62328, 46981, 57725, 77406 #### [facility] [address] CK.MB [Mass/Vol] 6.3 ng/mL Critically high 0.0-1.[address] [facility] Comment on above: Order Comment: No: D o not add to previous draw Performed By: #### 1 0070, 08147, 99218, 60875, 53134, 27072 #### [facility] [address] D DIMER TESTon 07-26-2020 D-DIMER TEST 2.34 mcg/mL FEU High 0.27-0.[address] [facility] Comment on above: Order Comment: No: D o not add to previous draw Result Comment: D-Di ricky values of less than 0.50 ug/ml (FEU) are considered to be a negative predictor of thrombosis. However, the D-Dimer result should be used in conjunction with pretest probability and should not be used alone to diagnose a thrombotic event. Performed By: #### 5 3629, 18236, 41252 #### [facility] [address] History and Physicalon 07-26 History and Physical MR#: [id number] [facility] Pt. Name: Austin Golden Admitted: 07/26/2020 Date of : 1940 Attending Physician: Jaqueline Quevedo M.D. Room #: 4AB [id number] Discharge Date: HISTORY AND PHYSICAL CHIEF COMPLAINT: Shortness of breath. HISTORY OF PRESENT ILLNESS: The patient is a 79-year-old female with a past medical history of atrial fibrillation, on Coumadin, fibromyalgia, hypertension, and history of COVID at the beginning of June, presented to [facility] as a direct transfer from [facility] ER. The patient presented to the ER today because of increasing shortness of breath. She states that it especially got worse over the weekends, so she came to the ER for evaluation. In the ER, she was found to be in atrial fibrillation with RVR and cardiology was called, so they requested the patient to be transferred to [facility]. Her initial heart rate was 120 [...] Normal affect and mood. LABORATORY DATA: From [facility] ER shows white blood cells 9.1, [...] and GI prophylaxis. 7. PT, OT, and [employer] for discharge planning. Electronically Signed by: Jaqueline Quevedo M.D. 07/27/2020 10:46 A Jaqueline Quevedo M.D. Date Dict: 07/26/2020/06:24 P/Jaqueline Quevedo M.D. Date Trans: 07/26/2020 07:50 P/mmo [id number] Normal [facility] LIVER BATTERYon 07-26-2020 Albumin [Mass/Vol] 3.4 g/dL Low 3.5-5.[address] [facility] Comment on above: Order Comment: No: D o not add to previous draw Performed By: #### 5 3629, 19216, 83871 #### [facility] [address] [place] [address], [facility] ALKALINE PHOSPH 82 IU/L Normal 34-[address] [facility] Comment on above: Order Comment: No: D o not add to previous draw Performed By: #### 5 3629, 89261, 12459 #### [facility] [address] [place] [address], [facility] ALT [Catalytic activity/Vol] 28 U/L Normal 7-[address] [facility] Comment on above: Order Comment: No: D o not add to previous draw Performed By: #### 5 3629, 81987, 47447 #### [facility] [address] [place] [address], [facility] AST [Catalytic activity/Vol] 26 U/L Normal 13-[address] [facility] Comment on above: Order Comment: No: D o not add to previous draw Performed By: #### 5 3629, 72167, 55220 #### [facility] [address] [place] [address], [place] Bilirubin [Mass/Vol] 0.6 mg/dL Normal 0.3-1.[address] [facility] Comment on above: Order Comment: No: D o not add to previous draw Performed By: #### 5 362, 10628, 48430 #### [facility] [address] [place] [address], [facility] Bilirubin.direct [Mass/Vol] 0.2 mg/dL Normal 0.0-0.[address] [facility] Comment on above: Order Comment: No: D o not add to previous draw Performed By: #### 5 3629, 77603, 73683 #### [facility] [address] [place] [id number], [facility] Protein [Mass/Vol] 5.8 g/dL Low 6.0-8.[address] [facility] Comment on above: Order Comment: No: D o not add to previous draw Performed By: #### 5 3629, 39191, 04924 #### [facility] [address] [place] [address], [facility] MAGNESIUM BLOODon 07-26-2020 Magnesium [Mass/Vol] 1.8 mg/dL Low 1.9-2.[address] [facility] Comment on above: Order Comment: No: D o not add to previous draw Performed By: #### 5 3629, 52137, 24291 #### [facility] [address] [place] [address], [place] PHOSPHORUS BLOODon 0 Phosphate [Mass/Vol] 3.4 mg/dL Normal 2.5-5.[address] [facility] Comment on above: Order Comment: No: D o not add to previous draw Performed By: #### 5 3629, 42558, 04102 #### [facility] [address] [place] [address], [facility] PROTHROMBIN TIMEon 0 INR Coag (PPP) [Relative time] 3.23 {INR} High 0.91-1.[address] [facility] Comment on above: Order Comment: [...] CHEST 1995;[id number]. Performed By: #### 5 3629, 68207, 90300 #### [facility] [address] [place] [address], [facility] PT Coag (PPP) [Time] 33.3 s High 12.3-14.[address] [facility] Comment on above: Order Comment: No: D o not add to previous draw Result Comment: ALL RESULTS MUST BE INTERPRETED WITH RESPECT TO BLOOD DRAWING ARTIFACT OR DILUTION ERROR OF ANTICOAGULANT AT THE TIME OF SAMPLING. Performed By: #### 5 3629, 11751, 83912 #### [facility] [address] [place] [address], [facility] TROPONIN-Ion 07-26-2020 Troponin I.cardiac [Mass/Vol] 0.01 ng/mL Normal 0.00-0.[address] [facility] Comment on above: Order Comment: No: D o not add to previous draw Result Comment: REFE JACINTO RANGES: 0.00 - 0.04 ng/ml NORMAL 0.05 - 0.50 ng/ml INDETERMINATE > 0.50 ng/ml CONSISTENT WITH AN M.I. Performed By: #### 5 3629, 39260, 73351 #### [facility] [address] Vital Signs Date Time Vital Sign Value Performing Clinician Facility 05-18-2025 12:06-0400 Body height 149.86 cm Jazmin Ball DO Work Phone: [facility] 05-18-2025 12:06-0400 Body mass index (BMI) [Ratio] 26.7 kg/m2 Jazmin Ball DO Work Phone: [facility] 05-18-2025 12:06-0400 Body weight 60.1 kg Jazmin Ball DO Work Phone: [facility] 05-18-2025 12:06-0400 Diastolic blood pressure 68 mm[Hg] Jazmin Ball DO Work Phone: [facility] 05-18-2025 12:06-0400 Heart rate 112 /min Jazmin Ball DO Work Phone: [facility] 05-18-2025 12:06-0400 Inhaled oxygen flow rate 97 L/min Jazmin Ball DO Work Phone: [facility] 05-18-2025 12:06-0400 Respiratory rate 20 /min Jazmin Ball DO Work Phone: [facility] 05-18-2025 12:06-0400 Systolic blood pressure 102 mm[Hg] Jazmin Ball DO Work Phone: [facility] 05-07-2025 15:00-0400 Body height 149.9 cm Joseph Sepulveda M Work Phone: [facility] 05-07-2025 15:00-0400 Body mass index (BMI) [Ratio] 24.44 kg/m2 Joseph Sepulveda DPM Work Phone: [facility] 05-07-2025 15:00-0400 Body weight 54.88 kg Joseph Sepulevda DPM Work Phone: [facility] 05-07-2025 15:00-0400 Respiratory rate 16 /min Joseph Sepulveda DPM Work Phone: [facility] 04-30-2025 16:13-0400 Body height 149.9 cm Joseph Sepulveda DPM Work Phone: [facility] 04-30-2025 16:13-0400 Body mass index (BMI) [Ratio] 24.44 kg/m2 Joseph Sepulveda DPM Work Phone: [facility] 04-30-2025 16:13-0400 Body weight 54.88 kg Joseph Sepulevda DPM Work Phone: [facility] 04-30-2025 16:13-0400 Respiratory rate 18 /min Joseph Sepulveda DPM Work Phone: [facility] 02-23-2025 15:07-0400 Body mass index (BMI) [Ratio] 26.26 kg/m2 Cristiana Chapa [employer] ENGINEER[employer]ST[employer]ER Work Phone: [facility] 02-23-2025 15:07-0400 Body weight 58.97 kg Cristiana Chapa [employer]AR [employer]S ENGINEER-[employer] INSTALLER Work Phone: [facility] 02-23-2025 15:07-0400 Diastolic blood pressure 60 mm[Hg] Cristiana Chapa SOLAR [employer]S ENGINEER-[employer] INSTALLER Work Phone: [facility] 02-23-2025 15:07-0400 Heart rate 69 /min Cristiana Chapa [employer]S ENGINEER-[employer] INSTALLER Work Phone: [facility] 02-23-2025 15:07-0400 Systolic blood pressure 122 mm[Hg] Cristiana Chapa SOLAR [employer]S ENGINEER-[employer] INSTALLER Work Phone: [facility] 06-26-2025 10:31-0400 Body height 149.9 cm Joseph Sepulveda DPM Work Phone: [facility] 02-12-2025 10:31-0400 Body mass index (BMI) [Ratio] 24.44 kg/m2 Joseph Sepulveda DPM Work Phone: [facility] 02-12-2025 10:31-0400 Body weight 54.88 kg Joseph Sepulveda DPM Work Phone: [facility] 02-12-2025 10:31-0400 Respiratory rate 18 /min Joseph Sepulveda DPM Work Phone: [facility] 01-23-2025 15:02-0400 Body temperature 97.9 [degF] Jazmin Ball DO Work Phone: [facility] 01-23-2025 15:02-0400 Diastolic blood pressure 68 mm[Hg] Jazmin Ball DO Work Phone: [facility] 01-23-2025 15:02-0400 Heart rate 102 /min Jazmin Ball DO Work Phone: [facility] 01-23-2025 15:02-0400 Respiratory rate 18 /min Jazmin Ball DO Work Phone: [facility] 01-23-2025 15:02-0400 SaO2% (BldA) [Mass fraction] 96 % Jazmin Ball DO Work Phone: [facility] 01-23-2025 15:02-0400 Systolic blood pressure 106 mm[Hg] Jazmin Ball DO Work Phone: [facility] 01-23-2025 05:19-0400 Inhaled oxygen flow rate 2 L/min Jazmin Ball DO Work Phone: [facility] 01-23-2025 03:36-0400 Body weight 58.2 kg Jazmin Ball DO Work Phone: [facility] 01-23-2025 00:21-0400 Body height 149.86 cm Jazmin Ball DO Work Phone: [facility] 01-23-2025 00:00-0400 Inhaled oxygen flow rate 2 L/min Jazmin Ball DO Work Phone: [facility] 01-22-2025 23:25-0400 Diastolic blood pressure 63 mm[Hg] Jazmin Ball DO Work Phone: [facility] 01-22-2025 23:25-0400 Heart rate 120 /min Jazmin Ball DO Work Phone: [facility] 01-22-2025 23:25-0400 Respiratory rate 22 /min Jazmin Ball DO Work Phone: [facility] 01-22-2025 23:25-0400 SaO2% (BldA) [Mass fraction] 96 % Jazmin Ball DO Work Phone: [facility] 01-22-2025 23:25-0400 Systolic blood pressure 106 mm[Hg] Jazmin Ball DO Work Phone: [facility] 01-22-2025 18:17-0400 Body temperature 97.7 [degF] Jazmin Ball DO Work Phone: [facility] 01-22-2025 18:15-0400 Body height 149.86 cm Jazmin Ball DO Work Phone: [facility] 01-22-2025 18:15-0400 Body weight 58.7 kg Jazmin Ball DO Work Phone: [facility] 01-21-2025 13:38-0400 Body height 149.86 cm [facility] 01-21-2025 13:38-0400 Body mass index (BMI) [Ratio] 26.5 kg/m2 [facility] 01-21-2025 13:38-0400 Body weight 59.59 kg [facility] 01-21-2025 13:38-0400 Diastolic blood pressure 82 mm[Hg] [facility] 01-21-2025 13:38-0400 Heart rate 116 /min [facility] 01-21-2025 13:38-0400 Respiratory rate 12 /min [facility] 01-21-2025 13:38-0400 SaO2% (BldA) [Mass fraction] 95 % [facility] 01-21-2025 13:38-0400 Systolic blood pressure 135 mm[Hg] [facility] 01-09-2025 14:29-0400 Body height 149.86 cm [facility] 01-09-2025 14:29-0400 Body mass index (BMI) [Ratio] 25.9 kg/m2 [facility] 01-09-2025 14:29-0400 Body weight 58.17 kg [facility] 01-09-2025 14:29-0400 Diastolic blood pressure 82 mm[Hg] [facility] 01-09-2025 14:29-0400 Heart rate 73 /min [facility] 01-09-2025 14:29-0400 Respiratory rate 12 /min [facility] 01-09-2025 14:29-0400 SaO2% (BldA) [Mass fraction] 97 % [facility] 01-09-2025 14:29-0400 Systolic blood pressure 132 mm[Hg] [facility] 12-08-2024 11:14-0400 Diastolic blood pressure 52 mm[Hg] Nigel El MD Work Phone: [facility] 12-08-2024 11:14-0400 Heart rate 95 /min Nigel El MD Work Phone: [facility] 12-08-2024 11:14-0400 Respiratory rate 18 /min Nigel El MD Work Phone: [facility] 12-08-2024 11:14-0400 SaO2% (BldA) [Mass fraction] 95 % Nigel El MD Work Phone: [facility] 12-08-2024 11:14-0400 Systolic blood pressure 126 mm[Hg] Nigel El MD Work Phone: [facility] 12-08-2024 10:52-0400 Body temperature 97.7 [degF] Nigel El MD Work Phone: [facility] 10-23-2024 11:28-0500 Body height 149.9 cm Maxwell Medrano MD Work Phone: [facility] 10-23-2024 11:28-0500 Body mass index (BMI) [Ratio] 27.59 kg/m2 Maxwell Medrano MD Work Phone: [facility] 10-23-2024 11:28-0500 Body weight 61.96 kg Maxwell Medrano MD Work Phone: [facility] 10-23-2024 11:28-0500 Diastolic blood pressure 60 mm[Hg] Maxwell Medrano MD Work Phone: [facility] 10-23-2024 11:28-0500 Heart rate 71 /min Maxwell Medrano MD Work Phone: [facility] 10-23-2024 11:28-0500 Systolic blood pressure 120 mm[Hg] Maxwell Medrano MD Work Phone: [facility] 10-06-2024 15:27-0500 Body height 149.86 cm Jazmin Ball DO Work Phone: [facility] 10-06-2024 15:27-0500 Body mass index (BMI) [Ratio] 26.9 kg/m2 Jazmin Ball DO Work Phone: [facility] 10-06-2024 15:27-0500 Body weight 60.32 kg Jazmin Ball DO Work Phone: [facility] 10-06-2024 15:27-0500 Diastolic blood pressure 74 mm[Hg] Jazmin Ball DO Work Phone: [facility] 10-06-2024 15:27-0500 Heart rate 88 /min Jazmin Ball DO Work Phone: [facility] 10-06-2024 15:27-0500 SaO2% (BldA) [Mass fraction] 97 % Jazmin Ball DO Work Phone: [facility] 10-06-2024 15:27-0500 Systolic blood pressure 122 mm[Hg] Jazmin Ball DO Work Phone: [facility] 09-12-2024 13:30-0500 Diastolic blood pressure 79 mm[Hg] Jazmin Ball DO Work Phone: [facility] 09-12-2024 13:30-0500 Heart rate 112 /min Jazmin Ball DO Work Phone: [facility] 09-12-2024 13:30-0500 Respiratory rate 18 /min Jazmin Ball DO Work Phone: [facility] 09-12-2024 13:30-0500 Systolic blood pressure 125 mm[Hg] Jazmin Ball DO Work Phone: [facility] 09-12-2024 12:34-0500 SaO2% (BldA) [Mass fraction] 92 % Jazmin Ball DO Work Phone: [facility] 09-12-2024 11:17-0500 Body height 149.86 cm Jazmin Ball DO Work Phone: [facility] 09-12-2024 11:17-0500 Body temperature 97.4 [degF] Jazmin Ball DO Work Phone: [facility] 09-12-2024 11:17-0500 Body weight 64.3 kg Jazmin Ball DO Work Phone: [facility] 09-09-2024 15:11-0500 Body height 149.86 cm Jazmin Ball DO Work Phone: [facility] 09-09-2024 15:11-0500 Body mass index (BMI) [Ratio] 29.5 kg/m2 Jazmin Ball DO Work Phone: [facility] 09-09-2024 15:11-0500 Body temperature 97.6 [degF] Jazmin Ball DO Work Phone: [facility] 09-09-2024 15:11-0500 Body weight 66.33 kg Jazmin Ball DO Work Phone: [facility] 09-09-2024 15:11-0500 Diastolic blood pressure 70 mm[Hg] Jazmin Ball DO Work Phone: [facility] 09-09-2024 15:11-0500 Heart rate 108 /min Jazmin Ball DO Work Phone: [facility] 09-09-2024 15:11-0500 SaO2% (BldA) [Mass fraction] 97 % Jazmin Ball DO Work Phone: [facility] 09-09-2024 15:11-0500 Systolic blood pressure 125 mm[Hg] Jazmin Ball DO Work Phone: [facility] 09-05-2024 11:19-0500 Body height 149.9 cm Debbie Mac MD Work Phone: [facility] 09-05-2024 11:19-0500 Body mass index (BMI) [Ratio] 28.48 kg/m2 Debbie Mac MD Work Phone: [facility] 09-05-2024 11:19-0500 Body weight 63.96 kg Debbie Mac MD Work Phone: [facility] 09-05-2024 11:19-0500 Diastolic blood pressure 80 mm[Hg] Debbie Mac MD Work Phone: [facility] 09-05-2024 11:19-0500 Heart rate 112 /min Debbie Mac MD Work Phone: [facility] 09-05-2024 11:19-0500 Systolic blood pressure 112 mm[Hg] Debbie Mac MD Work Phone: [facility] 08-27-2024 14:09-0500 Body height 149.86 cm Jazmin Ball DO Work Phone: [facility] 08-27-2024 14:09-0500 Body mass index (BMI) [Ratio] 28.6 kg/m2 Jazmin Ball DO Work Phone: [facility] 08-27-2024 14:09-0500 Body weight 64.41 kg Jazmin Ball DO Work Phone: [facility] 08-27-2024 14:09-0500 Diastolic blood pressure 79 mm[Hg] Jazmin Ball DO Work Phone: [facility] 08-27-2024 14:09-0500 Heart rate 91 /min Jazmin Ball DO Work Phone: [facility] 08-27-2024 14:09-0500 Respiratory rate 12 /min Jazmin Ball DO Work Phone: [facility] 08-27-2024 14:09-0500 Systolic blood pressure 129 mm[Hg] Jazmin Ball DO Work Phone: [facility] 07-31-2024 11:04-0500 Body height 149.86 cm Jazmin Ball DO Work Phone: [facility] 07-31-2024 11:04-0500 Body mass index (BMI) [Ratio] 29.5 kg/m2 Jazmin Ball DO Work Phone: [facility] 07-31-2024 11:04-0500 Body weight 66.28 kg Jazmin Ball DO Work Phone: [facility] 07-31-2024 11:04-0500 Diastolic blood pressure 82 mm[Hg] Jazmin Ball DO Work Phone: [facility] 07-31-2024 11:04-0500 Heart rate 110 /min Jazmin Ball DO Work Phone: [facility] 07-31-2024 11:04-0500 SaO2% (BldA) [Mass fraction] 98 % Jazmin Ball DO Work Phone: [facility] 07-31-2024 11:04-0500 Systolic blood pressure 132 mm[Hg] Jazmin Ball DO Work Phone: [facility] 07-28-2024 11:58-0500 Body height 152.4 cm Maxwell Medrano MD Work Phone: [facility] 07-28-2024 11:58-0500 Body mass index (BMI) [Ratio] 28.16 kg/m2 Maxwell Medrano MD Work Phone: [facility] 07-28-2024 11:58-0500 Body weight 65.41 kg Maxwell Medrano MD Work Phone: [facility] 07-28-2024 11:58-0500 Diastolic blood pressure 74 mm[Hg] Maxwell Medrano MD Work Phone: [facility] 07-28-2024 11:58-0500 Heart rate 84 /min Maxwell Medrano MD Work Phone: [facility] 07-28-2024 11:58-0500 Systolic blood pressure 112 mm[Hg] Maxwell Medrano MD Work Phone: [facility] 07-24-2024 08:08-0500 Diastolic blood pressure 67 mm[Hg] Jazmin Ball DO Work Phone: [facility] 07-24-2024 08:08-0500 Heart rate 92 /min Jazmin Ball DO Work Phone: [facility] 07-24-2024 08:08-0500 Respiratory rate 18 /min Jazmin Ball DO Work Phone: [facility] 07-24-2024 08:08-0500 SaO2% (BldA) [Mass fraction] 93 % Jazmin Ball DO Work Phone: [facility] [facility] 07-[facility]24 08:08-0500 Systolic blood pressure 124 mm[Hg] Jazmin Ball DO Work Phone: [facility] 07-24-2024 06:00-0500 Body weight 67.1 kg Jazmin Ball DO Work Phone: [facility] 07-24-2024 04:00-0500 Inhaled oxygen flow rate 2 L/min Jazmin Ball DO Work Phone: [facility] 07-23-2024 20:00-0500 Body temperature 98.3 [degF] Jazmin Ball DO Work Phone: [facility] 07-21-2024 21:34-0500 Body height 149.86 cm Jazmin Ball DO Work Phone: [facility] 07-09-2024 14:59-0500 Body height 149.86 cm Jazmin Ball DO Work Phone: [facility] 07-09-2024 14:59-0500 Body mass index (BMI) [Ratio] 29.1 kg/m2 Jazmin Ball DO Work Phone: [facility] 07-09-2024 14:59-0500 Body weight 65.48 kg Jazmin Ball DO Work Phone: [facility] 07-09-2024 14:59-0500 Diastolic blood pressure 82 mm[Hg] Jazmin Ball DO Work Phone: [facility] 07-09-2024 14:59-0500 Heart rate 101 /min Jazmin Ball DO Work Phone: [facility] 07-09-2024 14:59-0500 Respiratory rate 12 /min Jazmin Ball DO Work Phone: [facility] 07-09-2024 14:59-0500 Systolic blood pressure 138 mm[Hg] Jazmin Ball DO Work Phone: [facility] 07-03-2024 12:00-0500 Diastolic blood pressure 95 mm[Hg] Jazmin Ball DO Work Phone: [facility] 07-03-2024 12:00-0500 Heart rate 73 /min Jazmin Ball DO Work Phone: [facility] 07-03-2024 12:00-0500 Respiratory rate 16 /min Jazmin Ball DO Work Phone: [facility] 07-03-2024 12:00-0500 SaO2% (BldA) [Mass fraction] 95 % Jazmin Ball DO Work Phone: [facility] 07-03-2024 12:00-0500 Systolic blood pressure 149 mm[Hg] Jazmin Ball DO Work Phone: [facility] 07-03-2024 08:00-0500 Body temperature 97.6 [degF] Jazmin Ball DO Work Phone: [facility] 07-03-2024 08:00-0500 Inhaled oxygen flow rate 2 L/min Jazmin Ball DO Work Phone: [facility] 07-03-2024 04:50-0500 Body weight 71 kg Jazmin Ball DO Work Phone: [facility] 06-30-2024 18:56-0500 Body height 149.86 cm Jazmin Ball DO Work Phone: [facility] 06-30-2024 18:56-0500 Body temperature 97.8 [degF] Jazmin Ball DO Work Phone: [facility] 06-30-2024 18:56-0500 Body weight 63.5 kg Jazmin Ball DO Work Phone: [facility] 06-30-2024 18:56-0500 Diastolic blood pressure 80 mm[Hg] Jazmin Ball DO Work Phone: [facility] 06-30-2024 18:56-0500 Heart rate 90 /min Jazmin Ball DO Work Phone: [facility] 06-30-2024 18:56-0500 Respiratory rate 20 /min Jazmin Ball DO Work Phone: [facility] 06-30-2024 18:56-0500 SaO2% (BldA) [Mass fraction] 96 % Jazmin Ball DO Work Phone: [facility] 06-30-2024 18:56-0500 Systolic blood pressure 121 mm[Hg] Jazmin Ball DO Work Phone: [facility] 06-10-2024 15:20-0400 Body height 149.86 cm DO Jazmin Ball Work Phone: [facility] 06-10-2024 15:20-0400 Body mass index (BMI) [Ratio] 29.2 kg/m2 DO Jazmin Ball Work Phone: [facility] 06-10-2024 15:20-0400 Body weight 65.54 kg DO Jazmin Ball Work Phone: [facility] 06-10-2024 15:20-0400 Diastolic blood pressure 84 mm[Hg] DO Jazmin Ball Work Phone: [facility] 06-10-2024 15:20-0400 Heart rate 91 /min DO Jazmin Ball Work Phone: [facility] 06-10-2024 15:20-0400 Respiratory rate 20 /min DO Jazmin Ball Work Phone: [facility] 06-10-2024 15:20-0400 Systolic blood pressure 149 mm[Hg] DO Jazmin Ball Work Phone: [facility] 06-05-2024 12:58-0400 Body height 152.4 cm Maxwell Medrano MD Work Phone: [facility] 06-05-2024 12:58-0400 Body mass index (BMI) [Ratio] 28.63 kg/m2 Maxwell Medrano MD Work Phone: [facility] 06-05-2024 12:58-0400 Body weight 66.5 kg Maxwell Medrano MD Work Phone: [facility] 06-05-2024 12:58-0400 Diastolic blood pressure 64 mm[Hg] Maxwell Medrano MD Work Phone: [facility] 06-05-2024 12:58-0400 Systolic blood pressure 126 mm[Hg] Maxwell Medrano MD Work Phone: [facility] 05-29-2024 13:46-0400 Diastolic blood pressure 64 mm[Hg] Katie Yung MD Work Phone: [facility] 05-29-2024 13:46-0400 Heart rate 93 /min Katie Yung MD Work Phone: [facility] 05-29-2024 13:46-0400 Respiratory rate 17 /min Katie Yung MD Work Phone: [facility] 05-29-2024 13:46-0400 SaO2% (BldA) [Mass fraction] 100 % Katie Yung MD Work Phone: [facility] 05-29-2024 13:46-0400 Systolic blood pressure 119 mm[Hg] Katie Yung MD Work Phone: [facility] 05-29-2024 13:20-0400 Body temperature 96.49 [degF] Katie Yung MD Work Phone: [facility] 05-19-2024 09:24-0400 Body height 149.86 cm DO Jazmin Ball Work Phone: [facility] 05-19-2024 09:24-0400 Body mass index (BMI) [Ratio] 29.8 kg/m2 DO Jazmin Ball Work Phone: [facility] 05-19-2024 09:24-0400 Body weight 67 kg DO Jazmin Ball Work Phone: [facility] 05-08-2024 11:58-0400 Body height 149.86 cm DO Jazmin Ball Work Phone: [facility] 05-08-2024 11:58-0400 Body mass index (BMI) [Ratio] 29.7 kg/m2 DO Jazmin Ball Work Phone: [facility] 05-08-2024 11:58-0400 Body weight 66.84 kg DO Jazmin Ball Work Phone: [facility] 05-08-2024 11:58-0400 Diastolic blood pressure 82 mm[Hg] DO Jazmin Ball Work Phone: [facility] 05-08-2024 11:58-0400 Heart rate 88 /min DO Jazmin Ball Work Phone: [facility] 05-08-2024 11:58-0400 Respiratory rate 20 /min DO Jazmin Ball Work Phone: [facility] 05-08-2024 11:58-0400 SaO2% (BldA) [Mass fraction] 96 % DO Jazmin Ball Work Phone: [facility] 05-08-2024 11:58-0400 Systolic blood pressure 134 mm[Hg] DO Jazmin Ball Work Phone: [facility] 04-28-2024 11:55-0400 Body height 152.4 cm Maxwell Medrano MD Work Phone: [facility] 04-28-2024 11:55-0400 Diastolic blood pressure 70 mm[Hg] Maxwell Medrano MD Work Phone: [facility] 04-28-2024 11:55-0400 Heart rate 88 /min Maxwell Medrano MD Work Phone: [facility] 04-28-2024 11:55-0400 Systolic blood pressure 110 mm[Hg] Maxwell Medrano MD Work Phone: [facility] 04-24-2024 15:33-0400 Body height 152.4 cm Debbie Mac MD Work Phone: [facility] 04-24-2024 15:33-0400 Body mass index (BMI) [Ratio] 28.32 kg/m2 Debbie Mac MD Work Phone: [facility] 04-24-2024 15:33-0400 Body weight 65.77 kg Debbie Mac MD Work Phone: [facility] 04-24-2024 15:33-0400 Diastolic blood pressure 80 mm[Hg] Debbie Mac MD Work Phone: [facility] 04-24-2024 15:33-0400 Heart rate 114 /min Debbie Mac MD Work Phone: [facility] 04-24-2024 15:33-0400 Systolic blood pressure 112 mm[Hg] Debbie Mac MD Work Phone: [facility] 04-18-2024 10:090400 Body height 149.86 cm DO Jazmin Ball Work Phone: [facility] 04-18-2024 10:09-0400 Body mass index (BMI) [Ratio] 28.8 kg/m2 DO Jazmin Ball Work Phone: [facility] 04-18-2024 10:090400 Body weight 64.86 kg DO Jazmin Ball Work Phone: [facility] 04-18-2024 10:09-0400 Diastolic blood pressure 77 mm[Hg] DO Jazmin Ball Work Phone: [facility] 04-18-2024 10:09-0400 Heart rate 75 /min DO Jazmin Ball Work Phone: [facility] 04-18-2024 10:09-0400 Systolic blood pressure 143 mm[Hg] DO Jazmin Ball Work Phone: [facility] 04-17-2024 10:43-0400 Body height 152.4 cm Maxwell Medrano MD Work Phone: [facility] 04-17-2024 10:43-0400 Body mass index (BMI) [Ratio] 28.59 kg/m2 Maxwell Medrano MD Work Phone: [facility] 04-17-2024 10:43-0400 Body weight 66.41 kg Maxwell Medrano MD Work Phone: [facility] 04-17-2024 10:43-0400 Diastolic blood pressure 62 mm[Hg] Maxwell Medrano MD Work Phone: [facility] 04-17-2024 10:43-0400 Heart rate 88 /min Maxwell Medrano MD Work Phone: [facility] 04-17-2024 10:43-0400 Systolic blood pressure 96 mm[Hg] Maxwell Medrano MD Work Phone: [facility] 04-08-2024 16:12-0400 Body height 149.86 cm DO Jazmin Ball Work Phone: [facility] 04-08-2024 16:12-0400 Body mass index (BMI) [Ratio] 30.5 kg/m2 DO Jazmin Ball Work Phone: [facility] 04-08-2024 16:12-0400 Body weight 68.6 kg DO Jazmin Ball Work Phone: [facility] 04-08-2024 16:12-0400 Diastolic blood pressure 70 mm[Hg] DO Jazmin Ball Work Phone: [facility] 04-08-2024 16:12-0400 Heart rate 87 /min DO Jazmin Ball Work Phone: [facility] 04-08-2024 16:12-0400 Respiratory rate 12 /min DO Jazmin Ball Work Phone: [facility] 04-08-2024 16:12-0400 Systolic blood pressure 114 mm[Hg] DO Jazmin Ball Work Phone: [facility] 02-28-2024 11:47-0400 Body height 149.9 cm Maxwell Medrano MD Work Phone: [facility] 02-28-2024 11:47-0400 Body mass index (BMI) [Ratio] 30.7 kg/m2 Maxwell Medrano MD Work Phone: [facility] 02-28-2024 11:47-0400 Body weight 68.95 kg Maxwell Medrano MD Work Phone: [facility] 02-28-2024 11:47-0400 Diastolic blood pressure 78 mm[Hg] Maxwell Medrano MD Work Phone: [facility] 02-28-2024 11:47-0400 Heart rate 95 /min Maxwell Medrano MD Work Phone: [facility] 02-28-2024 11:47-0400 Systolic blood pressure 110 mm[Hg] Maxwell Medrano MD Work Phone: [facility] 02-25-2024 14:27-0400 Body mass index (BMI) [Ratio] 30.86 kg/m2 Debbie Mac MD Work Phone: [facility] 02-25-2024 14:27-0400 Body weight 69.31 kg Debbie Mac MD Work Phone: [facility] 02-25-2024 14:27-0400 Diastolic blood pressure 80 mm[Hg] Debbie Mac MD Work Phone: [facility] 02-25-2024 14:27-0400 Heart rate 87 /min Debbie Mac MD Work Phone: [facility] 02-25-2024 14:27-0400 Systolic blood pressure 118 mm[Hg] Debbie Mac MD Work Phone: [facility] 02-15-2024 08:46-0400 Body height 149.86 cm DO Jazmin Ball Work Phone: [facility] 02-15-2024 08:46-0400 Body mass index (BMI) [Ratio] 30.9 kg/m2 DO Jazmin Ball Work Phone: [facility] 02-15-2024 08:46-0400 Body weight 69.45 kg DO Jazmin Ball Work Phone: [facility] 02-15-2024 08:46-0400 Diastolic blood pressure 89 mm[Hg] DO Jazmin Ball Work Phone: [facility] 02-15-2024 08:46-0400 Heart rate 97 /min DO Jazmin Ball Work Phone: [facility] 02-15-2024 08:46-0400 Respiratory rate 20 /min DO Jazmin Ball Work Phone: [facility] 02-15-2024 08:46-0400 SaO2% (BldA) [Mass fraction] 96 % DO Jazmin Ball Work Phone: [facility] 02-15-2024 08:46-0400 Systolic blood pressure 139 mm[Hg] DO Jazmin Ball Work Phone: [facility] 01-28-2024 15:25-0400 Body height 149.86 cm DO Jazmin Ball Work Phone: [facility] 01-28-2024 15:25-0400 Body mass index (BMI) [Ratio] 31.4 kg/m2 DO Jazmin Ball Work Phone: [facility] 01-28-2024 15:25-0400 Body weight 70.47 kg DO Jazmin Ball Work Phone: [facility] 01-28-2024 15:25-0400 Diastolic blood pressure 79 mm[Hg] DO Jazmin Ball Work Phone: [facility] 01-28-2024 15:25-0400 Heart rate 72 /min DO Jazmin Ball Work Phone: [facility] 01-28-2024 15:25-0400 Respiratory rate 20 /min DO Jazmin Ball Work Phone: [facility] 01-28-2024 15:25-0400 Systolic blood pressure 137 mm[Hg] DO Jazmin Ball Work Phone: [facility] 01-22-2024 12:46-0400 Body height 149.9 cm [facility] 01-22-2024 12:46-0400 Body mass index (BMI) [Ratio] 30.9 kg/m2 [facility] 01-22-2024 12:46-0400 Body weight 69.4 kg [facility] 01-22-2024 12:46-0400 Diastolic blood pressure 94 mm[Hg] [facility] 01-22-2024 12:46-0400 Heart rate 71 /min [facility] 01-22-2024 12:46-0400 Systolic blood pressure 134 mm[Hg] [facility] 01-20-2024 12:00-0400 Diastolic blood pressure 86 mm[Hg] DO Jazmin Ball Work Phone: [facility] 01-20-2024 12:00-0400 Heart rate 78 /min DO Jazmin Ball Work Phone: [facility] 01-20-2024 12:00-0400 Respiratory rate 18 /min DO Jazmin Ball Work Phone: [facility] 01-20-2024 12:00-0400 SaO2% (BldA) [Mass fraction] 96 % DO Jazmin Ball Work Phone: [facility] 01-20-2024 12:00-0400 Systolic blood pressure 128 mm[Hg] DO Jazmin Ball Work Phone: [facility] 01-20-2024 09:23-0400 Body temperature 97.9 [degF] DO Jazmin Ball Work Phone: [facility] 01-20-2024 06:00-0400 Body weight 70 kg DO Jazmin Ball Work Phone: [facility] 01-18-2024 21:55-0400 Body height 149.86 cm DO Jazmin Ball Work Phone: [facility] 01-18-2024 21:00-0400 Diastolic blood pressure 97 mm[Hg] DO Jazmin Ball Work Phone: [facility] 01-18-2024 21:00-0400 Heart rate 118 /min DO Jazmin Ball Work Phone: [facility] 01-18-2024 21:00-0400 Respiratory rate 18 /min DO Jazmin Ball Work Phone: [facility] 01-18-2024 21:00-0400 SaO2% (BldA) [Mass fraction] 95 % DO Jazmin Ball Work Phone: [facility] 01-18-2024 21:00-0400 Systolic blood pressure 138 mm[Hg] DO Jazmin Ball Work Phone: [facility] 01-18-2024 15:05-0400 Body height 149.86 cm DO Jazmin Ball Work Phone: [facility] 01-18-2024 15:05-0400 Body temperature 97.8 [degF] DO Jazmin Ball Work Phone: [facility] 01-18-2024 15:05-0400 Body weight 69.9 kg DO Jazmin Ball Work Phone: [facility] 11-27-2023 15:07-0400 Body height 160.02 cm DO Jazmin Ball Work Phone: [facility] 11-27-2023 15:07-0400 Body mass index (BMI) [Ratio] 29.1 kg/m2 DO Jazmin Ball Work Phone: [facility] 11-27-2023 15:07-0400 Body weight 74.61 kg DO Jazmin Ball Work Phone: [facility] 11-27-2023 15:07-0400 Diastolic blood pressure 83 mm[Hg] DO Jazmin Ball Work Phone: [facility] 11-27-2023 15:07-0400 Heart rate 116 /min DO Jazmin Ball Work Phone: [facility] 11-27-2023 15:07-0400 Respiratory rate 12 /min DO Jazmin Ball Work Phone: [facility] 11-27-2023 15:07-0400 Systolic blood pressure 135 mm[Hg] DO Jazmin Ball Work Phone: [facility] 09-19-2023 13:07-0500 Body height 149.9 cm Debbie Mac MD Work Phone: [facility] 09-19-2023 13:07-0500 Body mass index (BMI) [Ratio] 33.2 kg/m2 Debbie Mac MD Work Phone: [facility] 09-19-2023 13:07-0500 Body weight 74.57 kg Debbie Mac MD Work Phone: [facility] 09-19-2023 13:07-0500 Diastolic blood pressure 92 mm[Hg] Debbie Mac MD Work Phone: [facility] 09-19-2023 13:07-0500 Heart rate 91 /min Debbie Mac MD Work Phone: [facility] 09-19-2023 13:07-0500 Systolic blood pressure 126 mm[Hg] Debbie aMc MD Work Phone: [facility] 08-21-2023 13:27-0500 Body height 149.[address] 08-21-2023 13:27-0500 Body mass index (BMI) [Ratio] 33.33 kg/m2 [address] 08-21-2023 13:27-0500 Body weight 74.[address] 08-21-2023 13:27-0500 Diastolic blood pressure 64 mm[Hg] [address] 08-21-2023 13:27-0500 Systolic blood pressure 116 mm[Hg] [address] 08-19-2023 12:15-0500 Body height 160.02 cm Negin Garcia Other [employer] [facility] [employer] Other 05-31-2023 15:24-0400 Body height 149.9 cm Debbie Mac MD Work Phone: [facility] 05-31-2023 15:24-0400 Body mass index (BMI) [Ratio] 33.33 kg/m2 Debbie Mac MD Work Phone: [facility] 05-31-2023 15:24-0400 Body weight 74.84 kg Debbie Mac MD Work Phone: [facility] 05-31-2023 15:24-0400 Diastolic blood pressure 64 mm[Hg] Debbie Mac MD Work Phone: [facility] 05-31-2023 15:24-0400 Heart rate 70 /min Debbie Mac MD Work Phone: [facility] 05-31-2023 15:24-0400 Systolic blood pressure 122 mm[Hg] Debbie Mac MD Work Phone: [facility] 03-21-2023 15:00-0400 Body height 160.02 cm Jazmin Ball Other [employer] Other 03-21-2023 15:00-0400 Body mass index (BMI) [Ratio] 28.62 kg/m2 Jazmin Ball Other [employer] Other 03-21-2023 15:00-0400 Body weight 73.3 kg Jazmin Ball Other [employer] Other 03-21-2023 15:00-0400 Diastolic blood pressure 79 mm[Hg] Jazmin Ball Other [employer] Other 03-21-2023 15:00-0400 Respiratory rate 12 /min Jazmin Ball Other [employer] Other 03-21-2023 15:00-0400 Systolic blood pressure 124 mm[Hg] Jazmin Ball Other [employer] Other 03-05-2023 14:42-0400 Diastolic blood pressure 76 mm[Hg] DO Jazmin Ball Work Phone: [facility] 03-05-2023 14:42-0400 Heart rate 92 /min DO Jazmin Ball Work Phone: [facility] 03-05-2023 14:42-0400 Inhaled oxygen flow rate 3 L/min DO Jazmin Ball Work Phone: [facility] 03-05-2023 14:42-0400 Respiratory rate 16 /min DO Jazmin Ball Work Phone: [facility] 03-05-2023 14:42-0400 SaO2% (BldA) [Mass fraction] 93 % DO Jazmin Ball Work Phone: [facility] 03-05-2023 14:42-0400 Systolic blood pressure 129 mm[Hg] DO Jazmin Ball Work Phone: [facility] 03-05-2023 13:48-0400 Body temperature 97 [degF] DO Jazmin Ball Work Phone: [facility] 03-05-2023 09:23-0400 Body height 149.86 cm DO Jazmin Ball Work Phone: [facility] 03-05-2023 09:23-0400 Body weight 73 kg DO Jazmin Ball Work Phone: [facility] 01-25-2023 13:09-0400 Body height 149.86 cm Jazmin E Ball Work Phone: [facility] Work Phone: 01-25-2023 13:09-0400 Body mass index (BMI) [Ratio] 32.52 kg/m2 Jazmin E Ball Work Phone: [facility] Work Phone: 01-25-2023 13:09-0400 Body surface area Derived from formula 1.68 m2 Jazmin E Ball Work Phone: [facility] Work Phone: 01-25-2023 13:09-0400 Body weight 73.03 kg Jazmin E Ball Work Phone: [facility] Work Phone: 01-25-2023 13:09-0400 Diastolic blood pressure 78 mm[Hg] Jazmin E Ball Work Phone: [facility] Work Phone: 01-25-2023 13:09-0400 Heart rate 72 /min Jazmin E Ball Work Phone: [facility] Work Phone: 01-25-2023 13:09-0400 Systolic blood pressure 126 mm[Hg] Jazmin E Ball Work Phone: [facility] Work Phone: 01-09-2023 17:07-0400 Diastolic blood pressure 98 mm[Hg] DO Jazmin Ball Work Phone: [facility] 01-09-2023 17:07-0400 Heart rate 70 /min DO Jazmin Ball Work Phone: [facility] 01-09-2023 17:07-0400 Respiratory rate 14 /min DO Jazmin Ball Work Phone: [facility] 01-09-2023 17:07-0400 SaO2% (BldA) [Mass fraction] 95 % DO Jazmin Ball Work Phone: [facility] 01-09-2023 17:07-0400 Systolic blood pressure 130 mm[Hg] DO Jazmin Ball Work Phone: [facility] 01-09-2023 10:54-0400 Body height 149.86 cm DO Jazmin Ball Work Phone: [facility] 01-09-2023 10:54-0400 Body temperature 98.6 [degF] DO Jazmin Ball Work Phone: [facility] 01-09-2023 10:54-0400 Body weight 73.2 kg DO Jazmin Ball Work Phone: [facility] 01-04-2023 14:23-0400 Body height 149.86 cm Jazmin E Ball Work Phone: [facility] Work Phone: 01-04-2023 14:23-0400 Body mass index (BMI) [Ratio] 32.52 kg/m2 Jazmin E Ball Work Phone: [facility] Work Phone: 01-04-2023 14:23-0400 Body surface area Derived from formula 1.68 m2 Jazmin E Ball Work Phone: [facility] Work Phone: 01-04-2023 14:23-0400 Body weight 73.03 kg Jazmin E Ball Work Phone: [facility] Work Phone: 01-04-2023 14:23-0400 Diastolic blood pressure 88 mm[Hg] Jazmin E Ball Work Phone: [facility] Work Phone: 01-04-2023 14:23-0400 Heart rate 76 /min Jazmin E Ball Work Phone: [facility] Work Phone: 01-04-2023 14:23-0400 Systolic blood pressure 128 mm[Hg] Jazmin E Ball Work Phone: [facility] Work Phone: 01-03-2023 14:05-0400 Body height 149.86 cm Jazmin E Ball Work Phone: [facility] Work Phone: 01-03-2023 14:05-0400 Body mass index (BMI) [Ratio] 33.12 kg/m2 Jazmin E Ball Work Phone: [facility] Work Phone: 01-03-2023 14:05-0400 Body surface area Derived from formula 1.69 m2 Jazmin E Ball Work Phone: [facility] Work Phone: 01-03-2023 14:05-0400 Body weight 74.39 kg Jamzin E Ball Work Phone: [facility] Work Phone: 01-03-2023 14:05-0400 Diastolic blood pressure 62 mm[Hg] Jazmin E Ball Work Phone: [facility] Work Phone: 01-03-2023 14:05-0400 Heart rate 70 /min Jazmin E Ball Work Phone: [facility] Work Phone: 01-03-2023 14:05-0400 Systolic blood pressure 118 mm[Hg] Jazmin E Ball Work Phone: [facility] Work Phone: 12-25-2022 13:41-0400 Diastolic blood pressure 84 mm[Hg] Jazmin E Ball Work Phone: [facility] Work Phone: 12-25-2022 13:41-0400 Heart rate 107 /min Jazmin E Ball Work Phone: [facility] Work Phone: 12-25-2022 13:41-0400 Respiratory rate 16 /min Jazmin E Ball Work Phone: [facility] Work Phone: 12-25-2022 13:41-0400 SaO2% (BldA) [Mass fraction] 96 % Jazmin E Ball Work Phone: [facility] Work Phone: 12-25-2022 13:41-0400 Systolic blood pressure 132 mm[Hg] Jazmin E Ball Work Phone: [facility] Work Phone: 11-27-2022 09:24-0400 Body height 149.86 cm DO Jazmin Ball Work Phone: [facility] 11-27-2022 09:24-0400 Body temperature 98 [degF] DO Jazmin Ball Work Phone: [facility] 11-27-2022 09:24-0400 Body weight 73 kg DO Jazmin Ball Work Phone: [facility] 11-27-2022 09:24-0400 Diastolic blood pressure 82 mm[Hg] DO Jazmin Ball Work Phone: [facility] 11-27-2022 09:24-0400 Heart rate 105 /min DO Jazmin Ball Work Phone: [facility] 11-27-2022 09:24-0400 Respiratory rate 18 /min DO Jazmin Ball Work Phone: [facility] 11-27-2022 09:24-0400 SaO2% (BldA) [Mass fraction] 97 % DO Jazmin Ball Work Phone: [facility] 11-27-2022 09:24-0400 Systolic blood pressure 136 mm[Hg] DO Jazmin Ball Work Phone: [facility] 10-24-2022 14:30-0500 Body height 160.02 cm Rachel Larios Other [facility] [employer] Other 10-24-2022 14:30-0500 Body mass index (BMI) [Ratio] 28.16 kg/m2 Rachel Larios Other [employer] Other 10-24-2022 14:30-0500 Body weight 72.12 kg Rachel Larios Other [place] [employer] Other 10-24-2022 14:30-0500 Diastolic blood pressure 98 mm[Hg] Rachel Larios Other [employer] Other 10-24-2022 14:30-0500 SaO2% (BldA) [Mass fraction] 97 % Rachel Larios Other [employer] Other 10-24-2022 14:30-0500 Systolic blood pressure 152 mm[Hg] Rachel Larios Other [employer] Other 10-13-2022 10:48-0500 Body height 149.86 cm Jazmin E Ball Work Phone: [facility] [employer] [facility] Work Phone: 10-13-2022 10:48-0500 Body mass index (BMI) [Ratio] 32.11 kg/m2 Jazmin E Ball Work Phone: [facility] [employer] DO Work Phone: 10-13-2022 10:48-0500 Body surface area Derived from formula 1.67 m2 Jazmin E Ball Work Phone: [facility] [facility] DO Work Phone: 10-13-2022 10:48-0500 Body weight 72.12 kg Jazmin E Ball Work Phone: [facility] 250 DO Work Phone: 10-13-2022 10:48-0500 Diastolic blood pressure 66 mm[Hg] Jazmin E Ball Work Phone: [facility] 250 DO Work Phone: 10-13-2022 10:48-0500 Heart rate 72 /min Jazmin E Ball Work Phone: [facility] 250 DO Work Phone: 10-13-2022 10:48-0500 Systolic blood pressure 98 mm[Hg] Jazmin E Ball Work Phone: [facility] 250 DO Work Phone: 09-27-2022 13:36-0500 Body height 149.86 cm Jazmin E Ball Work Phone: [facility] 250 DO Work Phone: 09-27-2022 13:36-0500 Body mass index (BMI) [Ratio] 31.91 kg/m2 Jazmin E Ball Work Phone: [facility] 250 DO Work Phone: 09-27-2022 13:36-0500 Body surface area Derived from formula 1.67 m2 Jazmin E Ball Work Phone: [facility] 250 DO Work Phone: 09-27-2022 13:36-0500 Body weight 71.67 kg Jazmin E Ball Work Phone: [facility] 250 DO Work Phone: 09-27-2022 13:36-0500 Diastolic blood pressure 86 mm[Hg] Jazmin E Ball Work Phone: [facility] 250 DO Work Phone: 09-27-2022 13:36-0500 Heart rate 70 /min Jazmin E Ball Work Phone: [facility] 250 DO Work Phone: 09-27-2022 13:36-0500 Systolic blood pressure 122 mm[Hg] Jazmin E Ball Work Phone: [facility] 250 DO Work Phone: 09-21-2022 16:34-0500 Body temperature 97.8 [degF] DO Jazmin Ball Work Phone: [facility] 09-21-2022 16:34-0500 Diastolic blood pressure 77 mm[Hg] DO Jazmin Ball Work Phone: [facility] 09-21-2022 16:34-0500 Heart rate 68 /min DO Jazmin Ball Work Phone: [facility] 09-21-2022 16:34-0500 Respiratory rate 18 /min DO Jazmin Ball Work Phone: [facility] 09-21-2022 16:34-0500 SaO2% (BldA) [Mass fraction] 96 % DO Jazmin Ball Work Phone: [facility] 09-21-2022 16:34-0500 Systolic blood pressure 134 mm[Hg] DO Jazmin Ball Work Phone: [facility] 09-21-2022 06:00-0500 Body weight 73.2 kg DO Jazmin Ball Work Phone: [facility] 09-17-2022 15:30-0500 Diastolic blood pressure 81 mm[Hg] DO Jazmin Ball Work Phone: [facility] 09-17-2022 15:30-0500 Heart rate 75 /min DO Jazmin Ball Work Phone: [facility] 09-17-2022 15:30-0500 Respiratory rate 16 /min DO Jazmin Ball Work Phone: [facility] 09-17-2022 15:30-0500 SaO2% (BldA) [Mass fraction] 96 % DO Jazmin Ball Work Phone: [facility] 09-17-2022 15:30-0500 Systolic blood pressure 139 mm[Hg] DO Jazmin Ball Work Phone: [facility] 09-17-2022 14:00-0500 Body height 149.86 cm DO Jazmin Ball Work Phone: [facility] 09-17-2022 14:00-0500 Body weight 72.1 kg DO Jazmin Ball Work Phone: [facility] 09-17-2022 13:00-0500 Body temperature 97.8 [degF] DO Jazmin Ball Work Phone: [facility] 09-12-2022 16:00-0500 Body height 160.02 cm Jazmin Ball Other [facility] [employer] Other 09-12-2022 16:00-0500 Body mass index (BMI) [Ratio] 28.02 kg/m2 Jazmin Ball Other [facility] [employer] Other 09-12-2022 16:00-0500 Body weight 71.76 kg Jazmin Ball Other [facility] Other 09-12-2022 16:00-0500 Diastolic blood pressure 76 mm[Hg] Jazmin Ball Other [facility] Other 09-12-2022 16:00-0500 Respiratory rate 12 /min Jazmin Ball Other [employer] Other 09-12-2022 16:00-0500 SaO2% (BldA) [Mass fraction] 97 % Jazmin Ball Other [facility] Other 09-12-2022 16:00-0500 Systolic blood pressure 132 mm[Hg] Jazmin Ball Other [facility] Other 09-06-2022 07:32-0500 Body temperature 97 [degF] DO Jazmin Ball Work Phone: [facility] 09-06-2022 07:32-0500 Diastolic blood pressure 83 mm[Hg] DO Jazmin Ball Work Phone: [facility] 09-06-2022 07:32-0500 Heart rate 92 /min DO Jazmin Ball Work Phone: [facility] 09-06-2022 07:32-0500 Respiratory rate 18 /min DO Jazmin Ball Work Phone: [facility] 09-06-2022 07:32-0500 SaO2% (BldA) [Mass fraction] 94 % DO Jazmin Ball Work Phone: [facility] 09-06-2022 07:32-0500 Systolic blood pressure 141 mm[Hg] DO Jazmin Ball Work Phone: [facility] 09-06-2022 06:00-0500 Body weight 70.1 kg DO Jazmin Ball Work Phone: [facility] 09-04-2022 14:04-0500 Body height 149.86 cm DO Jazmin Ball Work Phone: [facility] 09-04-2022 12:21-0500 40 1 Jazmin E Ball Work Phone: [facility] 250 DO Work Phone: Comment on above: [id number] 09-01-2022 22:47-0500 Diastolic blood pressure 85 mm[Hg] DO Jazmin Ball Work Phone: [facility] 09-01-2022 22:47-0500 Heart rate 98 /min DO Jazmin Ball Work Phone: [facility] 09-01-2022 22:47-0500 Systolic blood pressure 151 mm[Hg] DO Jazmin Ball Work Phone: [facility] 09-01-2022 22:30-0500 Respiratory rate 26 /min DO Jazmin Ball Work Phone: [facility] 09-01-2022 22:30-0500 SaO2% (BldA) [Mass fraction] 98 % DO Jazmin Ball Work Phone: [facility] 09-01-2022 12:07-0500 Body height 149.86 cm DO Jazmin Ball Work Phone: [facility] 09-01-2022 12:07-0500 Body temperature 98.3 [degF] DO Jazmin Ball Work Phone: [facility] 09-01-2022 12:07-0500 Body weight 73 kg DO Jazmin Ball Work Phone: [facility] 08-24-2022 10:03-0500 Body height 149.86 cm Jazmin E Ball Work Phone: [facility] 250 DO Work Phone: 08-24-2022 10:03-0500 Body mass index (BMI) [Ratio] 32.92 kg/m2 Jazmin E Ball Work Phone: [facility] 250 DO Work Phone: 08-24-2022 10:03-0500 Body surface area Derived from formula 1.69 m2 Jazmin E Ball Work Phone: [facility] 250 DO Work Phone: 08-24-2022 10:03-0500 Body weight 73.94 kg Jazmin E Ball Work Phone: [facility] 250 DO Work Phone: 08-24-2022 10:03-0500 Diastolic blood pressure 98 mm[Hg] Jazmin E Ball Work Phone: [facility] 250 DO Work Phone: 08-24-2022 10:03-0500 Heart rate 112 /min Jazmin E Ball Work Phone: [facility] 250 DO Work Phone: 08-24-2022 10:03-0500 Systolic blood pressure 132 mm[Hg] Jazmin E Ball Work Phone: [facility] 250 DO Work Phone: 06-26-2022 14:26-0500 Body height 149.86 cm Jazmin E Ball Work Phone: [facility] 250 DO Work Phone: 06-26-2022 14:26-0500 Body mass index (BMI) [Ratio] 32.92 kg/m2 Jazmin E Ball Work Phone: [facility] 250 DO Work Phone: 06-26-2022 14:26-0500 Body surface area Derived from formula 1.69 m2 Jazmin E Ball Work Phone: [facility] 250 DO Work Phone: 06-26-2022 14:26-0500 Body weight 73.94 kg Jazmin E Ball Work Phone: [facility] 250 DO Work Phone: 06-26-2022 14:26-0500 Diastolic blood pressure 70 mm[Hg] Jazmin E Ball Work Phone: [facility] 250 DO Work Phone: 06-26-2022 14:26-0500 Heart rate 71 /min Jazmin E Ball Work Phone: [facility] 250 DO Work Phone: 06-26-2022 14:26-0500 Systolic blood pressure 132 mm[Hg] Jazmin Hahn Ball Work Phone: [facility] [employer] 250 DO Work Phone: 04-27-2022 14:30-0400 Body height 160.02 cm John Mims Other [facility] [employer] Other 04-27-2022 14:30-0400 Body mass index (BMI) [Ratio] 27.45 kg/m2 John Mims Other [facility] Other 04-27-2022 14:30-0400 Body weight 70.31 kg John Mims Other [facility] [employer] Other 03-10-2022 10:53-0400 Diastolic blood pressure 82 mm[Hg] Jazmin Hahn Ball Work Phone: [facility] [employer] 250 DO Work Phone: 03-10-2022 10:53-0400 Systolic blood pressure 126 mm[Hg] Jazmin E Ball Work Phone: [facility] [employer] 250 DO Work Phone: 03-10-2022 10:19-0400 Body height 149.86 cm Jazmin E Ball Work Phone: [facility] [employer] 250 DO Work Phone: 03-10-2022 10:19-0400 Body mass index (BMI) [Ratio] 31.91 kg/m2 Jazmin E Ball Work Phone: [facility] [employer] 250 DO Work Phone: 03-10-2022 10:19-0400 Body surface area Derived from formula 1.67 m2 Jazmin E Ball Work Phone: [facility] [employer] 250 DO Work Phone: 03-10-2022 10:19-0400 Body weight 71.67 kg Jazmin E Ball Work Phone: [facility] [employer] 250 DO Work Phone: 03-10-2022 10:19-0400 Diastolic blood pressure 80 mm[Hg] Jazmin E Ball Work Phone: [facility] 250 DO Work Phone: 03-10-2022 10:19-0400 Heart rate 78 /min Jazmin E Ball Work Phone: [facility] [employer] 250 DO Work Phone: 03-10-2022 10:19-0400 Systolic blood pressure 146 mm[Hg] Jazmin E Ball Work Phone: [facility] [employer] 250 DO Work Phone: 02-28-2022 15:45-0400 Body height 160.02 cm John Jade Other [facility] [employer] Other 02-28-2022 15:45-0400 Body mass index (BMI) [Ratio] 27.45 kg/m2 John Jade Other [facility] [employer] Other 02-28-2022 15:45-0400 Body weight 70.31 kg John Jade Other [facility] [employer] Other 02-28-2022 15:32-0400 Body weight 0 kg DO Jazmin Ball Work Phone: [facility] 12-15-2021 08:46-0400 Body weight 0 kg DO Jazmin Ball Work Phone: [facility] 10-19-2021 16:04-0500 Body height 149.86 cm Jazmin E Ball Work Phone: [facility] [employer] 250 DO Work Phone: 10-19-2021 16:04-0500 Body mass index (BMI) [Ratio] 29.13 kg/m2 Jazmin Hahn Ball Work Phone: [facility] 250 DO Work Phone: 10-19-2021 16:04-0500 Body surface area Derived from formula 1.6 m2 Jazmin Hahn Ball Work Phone: [facility] 250 DO Work Phone: 10-19-2021 16:04-0500 Body weight 65.41 kg Jazmin Hahn Ball Work Phone: [facility] 250 DO Work Phone: 10-19-2021 16:04-0500 Diastolic blood pressure 76 mm[Hg] Jazmin Hahn Ball Work Phone: [facility] 250 DO Work Phone: 10-19-2021 16:04-0500 Heart rate 70 /min Jazmin Hahn Ball Work Phone: [facility] 250 DO Work Phone: 10-19-2021 16:04-0500 Systolic blood pressure 110 mm[Hg] Jazmin Hahn Ball Work Phone: [facility] 250 DO Work Phone: 07-26-2021 14:31-0500 Body height 149.86 cm Jazmin Hahn Ball Work Phone: [facility] 250 DO Work Phone: 07-26-2021 14:31-0500 Body mass index (BMI) [Ratio] 29.49 kg/m2 Jazmin Hahn Ball Work Phone: [facility] 250 DO Work Phone: 07-26-2021 14:31-0500 Body surface area Derived from formula 1.61 m2 Jazmin Hahn Ball Work Phone: [facility] 250 DO Work Phone: 07-26-2021 14:31-0500 Body weight 66.23 kg Jazmin Hahn Ball Work Phone: [facility] 250 DO Work Phone: 07-26-2021 14:31-0500 Diastolic blood pressure 80 mm[Hg] Jazmin Hahn Ball Work Phone: [facility] 250 DO Work Phone: 07-26-2021 14:31-0500 Heart rate 70 /min Jazmin Hahn Ball Work Phone: [facility] 250 DO Work Phone: 07-26-2021 14:31-0500 Systolic blood pressure 124 mm[Hg] Jazmin Hahn Ball Work Phone: [facility] 250 DO Work Phone: 07-06-2021 15:54-0500 Body height 149.86 cm Jazmin Hahn Ball Work Phone: [facility] 250 DO Work Phone: 07-06-2021 15:54-0500 Body mass index (BMI) [Ratio] 28.48 kg/m2 Jazmin Hahn Ball Work Phone: [facility] 250 DO Work Phone: 07-06-2021 15:54-0500 Body surface area Derived from formula 1.59 m2 Jazmin Hahn Ball Work Phone: [facility] 250 DO Work Phone: 07-06-2021 15:54-0500 Body temperature 97.2 [degF] Jazmin Hahn Ball Work Phone: [facility] 250 DO Work Phone: 07-06-2021 15:54-0500 Body weight 63.96 kg Jazmin Hahn Ball Work Phone: [facility] 250 DO Work Phone: 07-06-2021 15:54-0500 Diastolic blood pressure 49 mm[Hg] aJzmin Hahn Ball Work Phone: [facility] 250 DO Work Phone: 07-06-2021 15:54-0500 Heart rate 73 /min Jazmin E Ball Work Phone: [facility] 250 DO Work Phone: 07-06-2021 15:54-0500 Systolic blood pressure 95 mm[Hg] Jazmin E Ball Work Phone: [facility] 250 DO Work Phone: 06-30-2021 00:00-0500 0 1 Jazmin E Ball Work Phone: [facility] 250 DO Work Phone: Comment on above: [id number] 06-06-2021 15:33-0400 Body height 152.4 cm Jazmin Hahn Ball Work Phone: [facility] 250 DO Work Phone: 06-06-2021 15:33-0400 Body mass index (BMI) [Ratio] 28.12 kg/m2 Jazimn E Ball Work Phone: [facility] 250 DO Work Phone: 06-06-2021 15:33-0400 Body surface area Derived from formula 1.62 m2 Jazmin E Ball Work Phone: [facility] 250 DO Work Phone: 06-06-2021 15:33-0400 Body weight 65.32 kg Jazmin E Ball Work Phone: [facility] 250 DO Work Phone: 06-06-2021 15:33-0400 Diastolic blood pressure 64 mm[Hg] Jazmin E Ball Work Phone: [facility] 250 DO Work Phone: 06-06-2021 15:33-0400 Heart rate 110 /min Jazmin العلي Work Phone: [facility] 250 DO Work Phone: 06-06-2021 15:33-0400 Systolic blood pressure 88 mm[Hg] Jazmin العلي Work Phone: [facility] 250 DO Work Phone: Encounters Encounter Date Encounter Type Care Provider Facility Start: 05-19-2025 End: 05-19-2025 Subsequent hospital visit by physician Chanell Joseph [facility] Comment on above: Pacemaker; Sick sinus syndrome (Multi) Start: 05-19-2025 End: 05-19-2025 ambulatory [facility] Start: 05-18-2025 End: 05-18-2025 ambulatory Jazmin العلي DO Work Phone: [facility] Work Phone: Start: 05-18-2025 End: 05-18-2025 Patient encounter procedure Jazmin العلي DO -[facility] Work Phone: Start: 05-07-2025 End: 05-07-2025 Office [...] Start: 05-05-2025 Non-patient / Non-visit Sasha Hoyos [employer] Work Phone: Start: 05-05-2025 Non-patient / Non-visit Maxwell treadwell MD -[facility] Work Phone: Start: 05-04-2025 End: 05-04-2025 ambulatory Jazmin العلي DO Work Phone: [facility] Work Phone: Start: 05-04-2025 End: 05-04-2025 Departed Referred Maxwell Basurto MD -[facility] Start: 05-04-2025 Non-patient / Non-visit Maxwell treadwell MD -[facility] Work Phone: Start: 05-03-2025 Non-patient / Non-visit Juanito Varela DO -[facility] Work Phone: Start: 05-01-2025 End: 05-01-2025 ambulatory [facility] Start: 05-01-2025 End: 05-01-2025 Encounter for other preprocedural examination [facility] Start: 05-01-2025 End: 05-01-2025 Patient encounter status [address] Start: 05-01-2025 End: 05-01-2025 Subsequent hospital visit by physician Chanell [id number] Comment on above: Pre-op testing Start: 04-30-2025 End: 04-30-2025 ambulatory JOSEPH SEPULVEDA Not Available Start: 04-30-2025 End: 04-30-2025 Office outpatient visit 15 minutes Joseph Sepulveda DPM Work Phone: [facility] Comment on above: Cellulitis of left [...] Start: 04-28-2025 End: 04-28-2025 ambulatory JAZMIN العلي [facility] Start: 04-28-2025 End: 04-28-2025 ambulatory [facility] Start: 03-02-2025 ambulatory [facility] Start: 02-23-2025 End: 02-23-2025 Office outpatient visit 40 minutes Cristiana Chapa APRN-[employer] Work Phone: [facility] Comment on above: High risk medication use (Primary Dx); Essential hypertension, benign; Pacemaker; Persistent atrial fibrillation (Multi); Anticoagulated; Shortness of breath Start: 02-23-2025 End: 02-23-2025 ambulatory CRISTIANA CHAPA [facility] Start: 02-12-2025 End: 02-12-2025 Bamboo flowsheet Joseph Sepulveda DPM Work Phone: [facility] Start: 02-12-2025 End: 02-12-2025 Bamboo flowsheet Joseph Sepulveda DPM Work Phone: [facility] Start: 02-12-2025 End: 02-12-2025 Office outpatient new 30 minutes Joseph Sepulveda DPM Work Phone: [facility] Comment on above: Acquired deformity o f left toe (Primary Dx); Acquired deformity of right toe; Pain due to onychomycosis of toenails of both feet Start: 02-12-2025 End: 02-12-2025 ambulatory JOSEPH SEPULVEDA Not Available Start: 01-30-2025 End: 01-30-2025 ambulatory [facility] Start: 01-30-2025 End: 01-30-2025 Subsequent hospital visit by physician Chanell [facility] Comment on above: Pacemaker Start: 01-22-2025 End: 01-23-2025 ambulatory Tsephanie Mischler Facility:[facility] Start: 01-22-2025 End: 01-23-2025 Evaluation and management of inpatient Jazmin العلي DO Work Phone: [facility] [place] [facility] Work Phone: Start: 01-22-2025 End: 01-23-2025 observation encounter Jazmin العلي DO Work Phone: [facility] Work Phone: Start: 01-21-2025 End: 01-21-2025 ambulatory [facility] Work Phone: Start: 01-21-2025 End: 01-21-2025 Patient encounter procedure [facility] Work Phone: Start: 01-21-2025 Non-patient / Non-visit [facility] Work Phone: Start: 01-09-2025 End: 01-09-2025 ambulatory [facility] Work Phone: Start: 01-09-2025 End: 01-09-2025 Patient encounter procedure [facility] Work Phone: Start: 01-06-2025 End: 01-06-2025 Telemedicine consultation with patient Nigel El MD Work Phone: [facility] Comment on above: History of repair of hiatal hernia (Primary Dx) Start: 01-06-2025 End: 01-06-2025 ambulatory NIGEL EL Facility:[facility] Start: 12-31-2024 End: 12-31-2024 Telemedicine consultation with patient Nigel El MD Work Phone: [facility] General Surgery Comment on above: NO SHOW (Primary Dx) Start: 12-31-2024 ambulatory NIGEL EL Facil ity:[facility] Start: 12-30-2024 End: 12-30-2024 Telemedicine consultation with patient Nigel El MD Work Phone: [facility] General Surgery Comment on above: History of repair of hiatal hernia (Primary Dx); NO SHOW Start: 12-30-2024 ambulatory [facility] Start: 12-11-2024 End: 12-11-2024 Telephone encounter Nigel El MD Work Phone: [facility] Start: 12-08-2024 End: 12-08-2024 ambulatory NIGEL EL Facility:[facility] Start: 12-08-2024 End: 12-08-2024 Subsequent hospital visit by physician Nigel El MD Work Phone: [facility] Comment on above: Diaphragmatic hernia without obstruction or gangrene (Primary Dx); Hiatal hernia; Gastroesophageal reflux disease without esophagitis Start: 11-26-2024 End: 11-26-2024 Orders Only Nigel El MD Work Phone: [facility] Start: 11-25-2024 End: 11-25-2024 ambulatory [facility] Comment on above: Heartburn Start: 11-21-2024 End: 11-21-2024 Admission to same day surgery center Katie Yung MD Work Phone: [facility] Start: 11-12-2024 End: 11-14-2024 ambulatory K[facility] YUNG [facility] Start: 11-11-2024 End: 11-11-2024 ambulatory [facility] Comment on above: Food getting stuck i n throat; Swallowing problems Start: 10-23-2024 End: 10-23-2024 Office outpatient visit 40 minutes Maxwell Medrano MD Work Phone: [facility] Comment on above: Pacemaker; Sick sinus syndrome (Multi); Persistent atrial fibrillation (Multi); High risk medication use; 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 (Multi); Essential hypertension, benign; Chronic diastolic heart failure; BMI 27.0-27.9,adult; Never smoked tobacco Start: 10-23-2024 End: 10-23-2024 ambulatory [facility] Start: 10-13-2024 End: 10-13-2024 ambulatory Yesica Astudillo MD Facility:[facility] Start: 10-06-2024 Patient encounter procedure [facility] Start: 10-06-2024 End: 10-06-2024 ambulatory Jazmin Ball DO Work Phone: [facility] Work Phone: Start: 10-06-2024 End: 10-06-2024 Patient encounter procedure Jazmin Ball DO Work Phone: [facility] Work Phone: Start: 10-01-2024 Non-patient / Non-visit Kaveh in Ball DO Work Phone: [facility] Work Phone: Start: 09-12-2024 End: 09-12-2024 Emergency department patient visit Jazmin Ball DO Work Phone: [facility]-Emergency Room Work Phone: Start: 09-11-2024 End: 09-11-2024 Patient encounter procedure Jazmin Ball DO Work Phone: [facility]-XRay [facility] [place] Work Phone: Start: 09-11-2024 End: 09-11-2024 ambulatory Jazmin Ball DO Work Phone: [facility] Work Phone: Start: 09-09-2024 End: 09-09-2024 ambulatory Jazmin Ball DO Work Phone: [facility] Work Phone: Start: 09-09-2024 End: 09-09-2024 Patient encounter procedure Jazmin Ball DO Work Phone: [facility] Work Phone: Start: 09-08-2024 End: 09-08-2024 ambulatory [facility] Start: 09-08-2024 End: 09-08-2024 Subsequent hospital visit by physician Chanell Joseph [facility] Comment on above: Pacemaker; Sick sinus syndrome (Multi) Start: 09-05-2024 End: 09-05-2024 Patient encounter procedure Jazmin العلي DO Work Phone: [facility]-XRay [facility] Work Phone: Start: 09-05-2024 End: 09-05-2024 ambulatory Jazmin العلي DO Work Phone: [facility] Work Phone: Start: 09-05-2024 End: 09-05-2024 Office outpatient visit 25 minutes Debbie Mac MD Work Phone: [facility] Comment on above: Persistent atrial fi [...] any substance Start: 09-05-2024 End: 09-05-2024 ambulatory [facility] Amb[facility] Start: 09-01-2024 End: 09-01-2024 ambulatory Yesica Astudillo MD Facility:[facility] Start: 08-27-2024 End: 08-27-2024 ambulatory Jazmin العلي DO Work Phone: [facility] Work Phone: Start: 08-27-2024 End: 08-27-2024 Patient encounter procedure Jazmin العلي DO Work Phone: [facility] Work Phone: Start: 08-18-2024 End: 08-18-2024 ambulatory KATIE YUNG Facility:[facility] Start: 08-18-2024 End: 08-18-2024 Phys/qhp telephone evaluation 11-20 min Katie Yung MD Work Phone: [facility] Gastroenterology Comment on above: Esophageal dysphagia (Primary Dx) Start: 08-04-2024 End: 08-04-2024 ambulatory Yesica Astudillo MD Facility:[facility] Start: 07-31-2024 End: 07-31-2024 Patient encounter procedure Jazmin العلي DO Work Phone: [facility] Work Phone: Start: 07-28-2024 End: 07-28-2024 Office outpatient visit 40 minutes Maxwell Medrano MD Work Phone: [facility] Office Building Comment on above: Pacemaker; Persistent atrial fibrillation (Multi); Essential hypertension, benign; Diastolic heart failure, unspecified HF chronicity; High risk medication use; BMI 28.0-28.9,adult; 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 (Multi); Sinus bradycardia; Never smoked any substance; Anticoagulated Start: 07-28-2024 End: 07-28-2024 ambulatory [facility] Ambulatory Start: 07-23-2024 Non-patient / Non-visit Selamam in Tyson MORENO Work Phone: [facility] Gastroenterol Work Phone: Start: 07-22-2024 End: 07-22-2024 Telemedicine consultation with patient Katie Yung MD Work Phone: [facility] G[facility]enterology Comment on above: NO SHOW (Primary Dx) Start: 07-22-2024 ambulatory KATIE YUNG [facility] Start: 07-21-2024 Non-patient / Non-visit Benjam in Tyson DO Work Phone: [facility] Work Phone: Start: 07-21-2024 End: 07-24-2024 Evaluation and management of inpatient Jazmin Ball DO Work Phone: [facility] C[facility]-4 [place] [facility] Work Phone: Start: 07-21-2024 End: 07-28-2024 ambulatory Katie Yung MD Work Phone: [facility] Gastroenterology Comment on above: Update Start: 07-21-2024 Non-patient / Non-visit Benjam in Ball DO Work Phone: [facility] Work Phone: Start: 07-09-2024 End: 07-09-2024 ambulatory Jazmin Ball DO Work Phone: [facility] Work Phone: Start: 07-09-2024 End: 07-09-2024 Patient encounter procedure Jazmin Ball DO Work Phone: [facility] Work Phone: Start: 07-07-2024 End: 07-07-2024 ambulatory [facility] Ambulatory Start: 07-02-2024 Non-patient / Non-visit Benjam in Ball DO Work Phone: [facility] Work Phone: Start: 07-02-2024 Non-patient / Non-visit Benjam in Ball DO Work Phone: [facility] Start: 07-01-2024 Non-patient / Non-visit Benjam in Ball DO Work Phone: [facility] Start: 06-30-2024 End: 07-03-2024 Evaluation and management of inpatient Jazmin Ball DO Work Phone: [facility] C[facility] [place] [facility] Work Phone: Start: 06-26-2024 End: 06-26-2024 ambulatory KATIE YUNG Facility:[facility] Start: 06-26-2024 End: 06-26-2024 Subsequent hospital visit by physician Ip/Op Flouro 1 [facility] Radiology Department Comment on above: Esophageal dysphagia Start: 06-11-2024 End: 06-23-2024 Telephone encounter Katie Yung MD Work Phone: [facility] Gastroenterology Comment on above: Health Information Start: 06-10-2024 End: 06-10-2024 ambulatory DO Jazmin العلي Work Phone: [facility] Work Phone: Start: 06-10-2024 End: 06-10-2024 Patient encounter procedure DO Jazmin العلي Work Phone: [facility] Work Phone: Start: 06-05-2024 End: 06-05-2024 Office outpatient visit 40 minutes Maxwell Medrano MD Work Phone: [facility] Medical Office Building Comment on above: Pacemaker; Persistent atrial fibrillation (Multi); Essential hypertension, benign; Diastolic heart failure, unspecified HF chronicity; High risk medication use; BMI 28.0-28.9,adult; 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 (Multi); Sinus bradycardia; Never smoked any substance Start: 06-05-2024 End: 06-05-2024 ambulatory [facility] Ambulatory Start: 05-29-2024 End: 05-29-2024 ambulatory KATIE YUNG Facility:[facility] Start: 05-29-2024 End: 05-29-2024 Subsequent hospital visit by physician Katie Yung MD Work Phone: [facility] Comment on above: Esophageal dysphagia (Primary Dx) Start: 05-28-2024 Non-patient / Non-visit DO Johnson العلي Work Phone: [facility] Work Phone: Start: 05-19-2024 End: 05-19-2024 ambulatory DO Jazmin العلي Work Phone: [facility] Work Phone: Start: 05-19-2024 End: 05-19-2024 Patient encounter procedure DO Jazmin العلي Work Phone: [facility] Gastroenterology Work Phone: Start: 05-15-2024 End: 05-15-2024 Orders Only Katie Yung MD Work Phone: [facility] G[facility]enter[facility] Start: 05-08-2024 End: 05-08-2024 ambulatory DO Jazmin العلي Work Phone: [facility] Work Phone: Start: 05-08-2024 End: 05-08-2024 Patient encounter procedure DO Jazmin العلي Work Phone: [facility] Work Phone: Start: 04-28-2024 End: 04-28-2024 Office outpatient visit 40 minutes Maxwell Medrano MD Work Phone: [facility] Office Building Comment on above: Pacemaker (Primary D x); Persistent atrial fibrillation (Multi); Essential hypertension, benign; Diastolic heart failure, unspecified HF chronicity (Multi); High risk medication use; BMI 28.0-28.9,adult; 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 (Multi); Sinus bradycardia; Never smoked any substance Start: 04-24-2024 End: 04-24-2024 Office outpatient visit 25 minutes Debbie Mac MD Work Phone: [facility] Comment on above: Atrial flutter, unsp ecified type (Multi) (Primary Dx); Essential hypertension, benign; Chronic diastolic heart failure (Multi); Mixed hyperlipidemia; Sinus bradycardia; Single vessel coronary artery disease; Anticoagulated; Shortness of breath; Never smoked any substance; BMI 28.0-28.9,adult Start: 04-24-2024 End: 04-24-2024 ambulatory DO Jazmin العلي Work Phone: [facility] Work Phone: Start: 04-24-2024 End: 04-24-2024 Patient encounter procedure DO Jazmin العلي Work Phone: [facility] Ctr-Lab Main [place] Work Phone: Start: 04-18-2024 End: 04-18-2024 ambulatory DO Jazmin العلي Work Phone: [facility] Work Phone: Start: 04-18-2024 End: 04-18-2024 Patient encounter procedure DO Jazmin العلي Work Phone: [facility] Gastroenterology Work Phone: Start: 04-17-2024 End: 04-17-2024 Office outpatient visit 40 minutes Maxwell Medrano MD Work Phone: [facility] Medical Office Building Comment on above: High risk medication use (Primary Dx); Pacemaker; Anticoagulation management encounter; Longstanding persistent atrial fibrillation (Multi); Sinus bradycardia; BMI 28.0-28.9,adult; Never smoked any substance Start: 04-08-2024 End: 04-08-2024 ambulatory DO Jazmin العلي Work Phone: [facility] Work Phone: Start: 04-08-2024 End: 04-08-2024 Patient encounter procedure DO Jazmin العلي Work Phone: [facility] Work Phone: Start: 04-07-2024 End: 04-07-2024 ambulatory Yesica Astudillo MD Facility:[facility] Start: 03-31-2024 Non-patient / Non-visit DO Johnson العلي Work Phone: [facility] Work Phone: Start: 03-21-2024 Evaluation and management of inpatient [facility] Start: 03-21-2024 Non-patient / Non-visit DO Johnson cori Tyson Work Phone: [facility] Work Phone: Start: 03-21-2024 Non-patient / Non-visit DO Johnson cori العلي Work Phone: [facility] Work Phone: Start: 02-28-2024 End: 02-28-2024 Office outpatient visit 40 minutes Maxwell Medrano MD Work Phone: [facility] Comment on above: High risk medication use (Primary Dx); Diastolic heart failure, unspecified HF chronicity (Multi); Abnormal EKG; Anticoagulation management encounter; Longstanding persistent atrial fibrillation (Multi); Sinus bradycardia; Pacemaker; BMI 30.0-30.9,adult; Never smoked tobacco Start: 02-25-2024 End: 02-25-2024 Office outpatient visit 40 minutes Debbie Mac MD Work Phone: [facility] Comment on above: Atrial flutter, unsp ecified [...] 02-18-2024 ambulatory DO Jazmin العلي Work Phone: [facility] Work Phone: Start: 02-18-2024 End: 02-18-2024 Patient encounter procedure DO Jazmin العلي Work Phone: [facility] Ctr-CT Scan Main [place] Work Phone: Start: 02-15-2024 End: 02-15-2024 ambulatory DO Jazmin العلي Work Phone: [facility] Work Phone: Start: 02-15-2024 End: 02-15-2024 Patient encounter procedure DO Jazmin Tyson Work Phone: [facility] Work Phone: Start: 02-08-2024 Non-patient / Non-visit DO Johnson العلي Work Phone: [facility] Work Phone: Start: 02-08-2024 Non-patient / Non-visit DO Johnson العلي Work Phone: [facility] Work Phone: Start: 02-07-2024 Non-patient / Non-visit DO Johnson العلي Work Phone: [facility] Work Phone: Start: 02-07-2024 Non-patient / Non-visit DO Johnson العلي Work Phone: [facility] Work Phone: Start: 01-28-2024 End: 01-28-2024 ambulatory DO Jazmin العلي Work Phone: [facility] Work Phone: Start: 01-28-2024 End: 01-28-2024 Patient encounter procedure DO Jazmin العلي Work Phone: [facility] Work Phone: Start: 01-28-2024 End: 01-28-2024 ambulatory Yesica Astudillo MD Facility: [facility] Start: 01-22-2024 End: 01-22-2024 Professional / ancillary services management Chanell Stroud Cardiology Ecg/Holter [facility] Start: 01-21-2024 Non-patient / Non-visit DO Johnson العلي Work Phone: [facility] Work Phone: Start: 01-18-2024 End: 01-20-2024 Evaluation and management of inpatient DO Jazmin العلي Work Phone: [facility] [place] [facility] Work Phone: Start: 12-17-2023 End: 12-17-2023 ambulatory Yesica Astudillo MD Facility: [facility] Start: 11-27-2023 End: 11-27-2023 ambulatory DO Jazmin Ball Work Phone: [facility] Work Phone: Start: 11-27-2023 End: 11-27-2023 Patient encounter procedure DO Jazmin Ball Work Phone: [facility] Work Phone: Start: 11-22-2023 End: 11-22-2023 ambulatory DO Jazmin Ball Work Phone: [facility] Work Phone: Start: 11-22-2023 End: 11-22-2023 Patient encounter procedure DO Jazmin Tyson Work Phone: [facility]-Pacemaker Check Start: 11-21-2023 End: 11-21-2023 ambulatory DO Jazmin Tyson Work Phone: [facility] Work Phone: Start: 11-21-2023 End: 11-21-2023 Patient encounter procedure DO Jazmin العلي Work Phone: [facility]-MRI [facility] [place] Work Phone: Start: 09-24-2023 End: 09-24-2023 ambulatory DO Jazmin العلي Work Phone: [facility] Work Phone: Start: 09-24-2023 End: 09-24-2023 Patient encounter procedure DO Jazmin العلي Work Phone: [facility]-Pacemaker Check Start: 09-19-2023 End: 09-19-2023 Office outpatient visit 25 minutes Debbie Mac MD Work Phone: [facility] Comment on above: Persistent atrial fi brillation (CMS/HCC) (Primary Dx); 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); Chronic diastolic heart failure (CMS/HCC); Essential hypertension, benign; Mixed hyperlipidemia; Pacemaker; Sinus bradycardia; Single vessel coronary artery disease Start: 2023 End: 2023 ambulatory DO Jazmin Ball Work Phone: [facility] Work Phone: Start: 2023 End: 2023 Patient encounter procedure DO Jazmin العلي Work Phone: [facility] Ctr-Pacemaker Check Start: 08-24-2023 End: 08-24-2023 ambulatory Jazmin العلي Other [employer] Other Start: 08-24-2023 Telephone encounter Jazmin العلي IR[facility] Jake العلي [facility] Start: 08-21-2023 End: 08-21-2023 Subsequent hospital visit by physician Chanell Stroud Echo/Vasc Room 2 [facility] Comment on above: Chronic diastolic he art failure (CMS/HCC); Essential hypertension, benign; Dyspnea, unspecified type Start: 08-19-2023 End: 08-19-2023 ambulatory Negin Garcia Other [employer] [facility] [employer] Other Start: 08-19-2023 Patient encounter procedure Negin Garcia [facility] Start: 08-19-2023 End: 08-19-2023 Patient encounter procedure DO Jazmin العلي Work Phone: [facility] Work Phone: Start: 07-25-2023 End: 07-25-2023 Patient encounter procedure DO Jazmin العلي Work Phone: [facility] Work Phone: Start: 06-29-2023 End: 06-29-2023 ambulatory Jazmin العلي Other [employer] Other Start: 06-29-2023 Nursing evaluation o f patient and report Jazmin العلي [facility] Start: 05-31-2023 End: 05-31-2023 Office outpatient visit 25 minutes Debbie Mac MD Work Phone: [facility] Comment on above: Persistent atrial fi brillation (CMS/HCC) (Primary Dx); 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); Chronic diastolic heart failure ([facility]); Essential hypertension, benign; Hyperlipidemia, unspecified hyperlipidemia type; Pacemaker; Sinus bradycardia; Anticoagulated; Class 1 obesity due to excess calories without serious comorbidity with body mass index (BMI) of 32.0 to 32.9 in adult; Stage 3a chronic kidney disease ([facility]); Dyspnea, unspecified type Start: 05-25-2023 End: 05-25-2023 ambulatory Jazmin العلي Other [employer] Other Start: 05-25-2023 Telephone encounter Jazmin SIMMONS [facility] Start: 04-20-2023 Rx Renewal Jazmin Hahn Bal l Work Phone: [facility] [employer] DO Work Phone: Start: 04-18-2023 Rx Renewal Jazmin E Bal l Work Phone: [facility] [employer] 250 DO Work Phone: Start: 04-12-2023 End: 04-12-2023 ambulatory Jazmin العلي Other [employer] Other Start: 04-12-2023 Telephone encounter Jazmin SIMMONS [facility] Start: 04-10-2023 End: 04-10-2023 ambulatory Jazmin العلي Other [employer] Other Start: 04-10-2023 Telephone encounter Jazmin SIMMONS [facility] Start: 03-21-2023 End: 03-21-2023 ambulatory Jazmin العلي Other [employer] Other Start: 03-21-2023 Patient encounter procedure Jazmin العلي [facility] Start: 03-13-2023 End: 03-13-2023 ambulatory Jazmin العلي Other [employer] Other Start: 03-13-2023 Telephone encounter Jazmin SIMMONS [facility] Start: 03-05-2023 Telephone encounter Jazmin SIMMONS [facility] Start: 03-05-2023 End: 03-05-2023 Admission to same day surgery center DO Jazmin Tyson Work Phone: [facility]-Surgery Center [facility] [place] Start: 03-05-2023 End: 03-05-2023 ambulatory DO Jazmin Tyson Work Phone: [facility] Work Phone: Start: 02-26-2023 End: 02-26-2023 ambulatory DO Jazmin Tyson Work Phone: [facility] Work Phone: Start: 02-26-2023 End: 02-26-2023 Patient encounter procedure DO Jazmin Tyson Work Phone: [facility]-Pre-Surgical Testing Work Phone: Start: 02-26-2023 Rx Renewal Jazmin rosen Work Phone: [facility] Heart-Tri 250 DO Work Phone: Start: 01-25-2023 Office outpatient vi sit 25 minutes Jazmin العلي Work Phone: [facility] Work Phone: Start: 01-09-2023 End: 01-09-2023 Admission to same day surgery center DO Jazmin Tyson Work Phone: [facility]-Tool Lathe Operator Work Phone: Start: 01-03-2023 End: 01-04-[address] JAZMIN العلي Facility:[facility] Start: 01-02-2023 End: 01-03-[address] JAZMIN العلي Facility:[facility] Start: 12-25-2022 Office outpatient ne w 45 minutes Jazmin العلي Work Phone: [facility] Work Phone: Start: 12-25-[address] Jazmin العلي Facility:[id number] Start: 12-11-2022 End: 12-11-2022 ambulatory DO Jazmin العلي Work Phone: [facility] Work Phone: Start: 12-11-2022 End: 12-11-2022 Patient encounter procedure DO Jazmin العلي Work Phone: [facility] Ctr-Pacemaker Check Start: 11-27-2022 Telephone encounter Jazmin SIMMONS [facility] Start: 11-27-2022 End: 11-27-2022 Admission to same day surgery center DO Jazmin العلي Work Phone: [facility]-Surgery Center [facility] [place] Start: 11-27-2022 End: 11-27-2022 ambulatory DO Jazmin العلي Work Phone: [employer] Other Start: 11-20-2022 End: 11-20-2022 ambulatory DO Jazmin العلي Work Phone: [facility] Work Phone: Start: 11-20-2022 End: 11-20-2022 Patient encounter procedure DO Jazmin العلي Work Phone: [facility]-Pre-Surgical Testing Work Phone: Start: 10-30-2022 Telephone encounter Jazmin SIMMONS [facility] Start: 10-30-2022 End: 10-30-2022 ambulatory DO Jazmin العلي Work Phone: [facility] Work Phone: Start: 10-30-2022 End: 10-30-2022 Patient encounter procedure DO Jazmin العلي Work Phone: [facility] Ctr-CT [address] Work Phone: Start: 10-24-2022 End: 10-24-2022 ambulatory Rachel Larios Other [employer] Other Start: 10-24-2022 Office outpatient vi sit 15 minutes Rachel CRUZ [facility] Start: 10-16-2022 End: 10-17-[address] JAZMIN العلي Facility: Start: 10-13-2022 Office outpatient vi sit 25 minutes Jazmin العلي Work Phone: [facility] Heart-Tri 250 DO Work Phone: Start: 10-10-2022 End: 10-10-2022 ambulatory Jazmin العلي Other [place] [employer] Other Start: 10-10-2022 Telephone encounter Jazmin العلي IR[facility]علي [facility] Start: 09-27-2022 Patient encounter procedure Jazmin Jovani Ball Work Phone: [facility] Heart-[place] 250 DO Work Phone: Start: 09-24-2022 End: 09-24-2022 ambulatory Jazmni العلي Other [place] [employer] Other Start: 09-24-2022 Telephone encounter Jazmin SIMMONS [facility] Start: 09-17-2022 End: 09-21-2022 Evaluation and management of inpatient DO Jazmin العلي Work Phone: [facility] [place] [facility] Work Phone: Start: 09-12-2022 End: 09-12-2022 ambulatory Jazmin العلي Other [employer] Other Start: 09-12-2022 Office outpatient vi sit 25 minutes Jazmin العلي [facility] Start: 09-11-2022 End: 09-11-2022 ambulatory DO Jazmin Ball Work Phone: [facility] Work Phone: Start: 09-11-2022 End: 09-11-2022 Patient encounter procedure DO Jazmin Ball Work Phone: [facility] Ctr-Pacemaker Check Start: 09-08-2022 End: 09-08-2022 ambulatory Jazmin العلي Other [place] [employer] Other Start: 09-08-2022 Telephone encounter Jazmin SIMMONS [facility] Start: 09-01-2022 End: 09-06-2022 Evaluation and management of inpatient DO Jazmin العلي Work Phone: [facility] [place] [facility] Work Phone: Start: 08-25-2022 Telephone encounter Jazmin العلي Work Phone: [facility] Heart-[place] 250 DO Work Phone: Start: 08-24-2022 Patient encounter procedure Jazmin العلي Work Phone: [facility]-[place] 250 DO Work Phone: Start: 06-26-2022 Office outpatient vi sit 25 minutes Jazmin العلي Work Phone: [facility]-[place] 250 DO Work Phone: Start: 06-09-2022 End: 06-09-2022 ambulatory DO Jazmin العلي Work Phone: [facility] Work Phone: Start: 06-09-2022 End: 06-09-2022 Patient encounter procedure DO Jazmin العلي Work Phone: [facility] Ctr-Pacemaker Check Start: 05-12-2022 End: 05-13-[address] JAZMIN العلي Facility:[facility] Start: 05-01-2022 Adult health examination Jazmin العلي Other [facility] [employer] Other Start: 04-27-2022 End: 04-27-2022 ambulatory John Mims Other [place] [employer] Other Start: 04-27-2022 Office outpatient vi sit 25 minutes John Mims [facility] Gastroenterology Start: 04-20-2022 End: 04-20-[address] RACHEL LARIOS Facility:[facility] Start: 03-27-2022 Rx Renewal Jazmin rosen Work Phone: [facility] Heart-Tri 250 DO Work Phone: Start: 03-16-2022 End: 03-16-2022 ambulatory John Mims Other [place] [employer] Other Start: 03-16-2022 Telephone encounter John feliciano [facility] Start: 03-10-2022 Office outpatient vi sit 25 minutes Jazmin E Ball Work Phone: [facility]-[place] 250 DO Work Phone: Start: 03-09-2022 End: 03-09-2022 Patient encounter procedure DO [facility]azmin Ball [facility] Start: 03-09-2022 End: 03-09-2022 Patient encounter procedure DO Jazmin Ball Work Phone: [facility]-Pacemaker Check Start: 02-28-2022 End: 02-28-2022 ambulatory [address] Mims Other [facility] [employer] Other Start: 02-28-2022 Office outpatient vi sit 25 minutes John Mims [facility] Gastroenterology Start: 02-16-2022 End: 02-16-2022 Patient encounter procedure DO Jazmin Ball Work Phone: [facility] Start: 01-25-2022 End: 01-26-[address] Wolf MIMS Facility:[facility] Start: 01-19-2022 End: 01-19-2022 Patient encounter procedure DO Jazmin Ball Work Phone: [facility] Start: 01-11-2022 End: 01-12-[address] JAZMIN العلي Facility:[facility] Start: 01-03-2022 End: 01-03-2022 Patient encounter procedure DO [facility]azmin Ball [facility] Start: 12-30-2021 End: 12-30-2021 Patient encounter procedure DO Jazmin Ball Work Phone: [facility]-Pre-Surgical Testing Start: 11-21-2021 End: 11-21-2021 Patient encounter procedure DO Jazmin Ball Work Phone: [facility]-Pacemaker Check Start: 10-19-2021 Office outpatient vi sit 25 minutes Jazmin E Ball Work Phone: [facility] 250 DO Work Phone: Start: 08-15-2021 Patient encounter procedure Jazmin العلي Work Phone: [facility] 250 DO Work Phone: Start: 07-26-2021 Rx Renewal Jazmin rosen Work Phone: [facility] 250 DO Work Phone: Start: 07-06-2021 Postop follow up vis it related to original px Jazmin Hahn [place] Work Phone: [facility] 250 DO Work Phone: Start: 06-28-2021 Chart Update Jazmin rosen Work Phone: [facility] 250[address] [place] Work Phone: Start: 06-26-2021 Chart Update Jazmin rosen Work Phone: [facility] 250[address] [place] Work Phone: Start: 06-24-2021 Chart Update Jazmin rosen Work Phone: [facility] [facility] [address] [place] Work Phone: Start: 06-24-2021 Chart Update Jazmin Moyer l Work Phone: [facility] [address] [place] Work Phone: Start: 06-23-2021 Chart Update Jazmin rosen Work Phone: [facility] [address] [place] Work Phone: Start: 06-23-2021 SURGNONUH, Provider: Debbie Mac, Status: Pen, Time: 10:00 AM Jazmin العلي Work Phone: [facility] [address] [place] Work Phone: Start: 06-22-2021 Chart Update Jazmin rosen Work Phone: [facility] [address] [place] Work Phone: Start: 06-13-2021 Telephone encounter Jazmin العلي Work Phone: [facility] [address] [place] Work Phone: Start: 06-06-2021 Patient encounter procedure Jazmin العلي Work Phone: [facility] 250 [place] Work Phone: Start: 05-25-2021 Telephone encounter Debbie singletary MD Work Phone: [facility] 250 [place] Work Phone: Start: 07-26-2020 End: 07-31-2020 Evaluation and management of inpatient JAZMIN العلي Facility:[facility] Procedures Date Procedure Procedure Detail Performing [...] 09-12-2024 Viral nucleic acid assay Jazmin العلي D O Work Phone: Start: 09-12-2024 CT of [...] 06-30-2024 CT of head without contrast Jazmin rosen DO Work Phone: Start: 06-30-2024 Plain chest [...] Phone: Start: 03-09-2022 DH Fibroscan DO Jazmin INXPO Work Phone: Start: 01-03-2022 Esophageal manometry DO Jazmin INXPO Work Phone: Start: 07-30-2020 MEASUREMENT OF CARDIAC TOTAL ACTIVITY, EXTERNAL APPROACH TANNER HERRERA Start: 07-28-2020 INTRODUCTION OF OTHER GAS INTO RESP TRACT, VIA OPENING JELANI WOO Start: 07-28-2020 Jew of Cardiac Rhythm, Single SANJUANA CARRERO Start: 07-28-2020 ULTRASONOGRAPHY OF RIGHT AND LEFT HEART, TRANSESOPHAGEAL SANJUANA CARRERO Start: 06-20-2017 Screening for osteoporosis Jazmin العلي Other Start: 09-13-2016 General examination of patient Jazmin العلي Other Start: 05-21-2015 Screening mammography Jazmin العلي Other Appendectomy Jazmin العلي Work Phone: Depression screening Arlette العلي Other Hernia repair Jazmin Moyer l Work Phone: Hysterectomy Jazmin العلي Work Phone: Insertion of pacemak er pulse generator Jazmin العلي Work Phone: Operative procedure on foot Jazmin العلي Work Phone: Plan of Treatment Date Care Activity Detail Author Start: 07-11-2031 DTaP/Tdap/Td Vaccines (2 - Td or Tdap) DTaP/Tdap/Td Vaccines (2 - Td or Tdap) [facility] Start: 07-11-2031 DTaP/Tdap/Td Vaccines (3 - Td or Tdap) DTaP/Tdap/Td Vaccines (3 - Td or Tdap) [facility] Start: 07-11-2031 Tetanus vaccination Tetanus (Td or Tdap) [facility] Start: 04-28-2026 Creatinine measurement Creatinine Level [facility] Start: 04-28-2026 Diabetes mellitus screening Diabetes Screening [facility] Start: 04-28-2026 Potassium measurement Potassium Level [facility] Start: 07-23-2025 End: 07-23-2025 Patient encounter procedure 07/23/2025 4:20 PM EST Procedure Visit [facility] [address] [facility] [address] [place] [address] Joseph Sepulveda DPM [address] [facility] 5 [place] [address] [facility] Start: 05-29-2025 End: 05-29-2025 Patient encounter procedure 05/29/2025 2:15 PM EDT Off ice Visit [facility] Medical Office Building [address] [facility] [address] [place] [address] Maxwell Medrano MD [address] [facility] [address] [place] [address] [facility] Medical Office [facility] Start: 05-28-2025 End: 05-28-2025 Patient encounter procedure 05/28/2025 9:00 AM EDT Appointment [facility] [address] [facility] [place] [address] Hardy Betancourt MD 7 [facility] [address] [place] [address] [facility] Start: 05-28-2025 End: 05-28-2025 Admission to same day surgery center [facility] Comment on above: Ablation A-Fib [16616 (CPT )] Start: 05-28-2025 Subsequent hospital visit by physician [facility] Comment on above: Persistent atrial fibrillation (Multi) Start: 05-27-2025 End: 05-27-2025 Patient encounter procedure 05/27/2025 11:30 AM EDT Appointment [facility] [address] [place] [address] Arron Veloz MD [address] [facility] Medical Office [facility] [place] [address] [facility] Start: 05-26-2025 End: 05-26-2025 Patient encounter procedure 05/26/2025 2:40 PM EDT Off [place] Visit [place] [id number] [facility] [place] [address] Debbie Mac MD 703 [facility] 2, [address] [place] [address] [facility] Start: 05-21-2025 End: 05-21-2025 Patient encounter procedure 05/21/2025 11:15 AM EDT Office Visit [facility] Medical Office Building [address] [facility] 130 [place] [address] Maxwell Medrano MD [address] [facility] [address] [place] [address] [facility] Medical Office Building Start: 05-21-2025 End: 05-21-2025 Professional / ancillary services management 05/21/2025 11:00 AM EDT Ancillary Procedure [facility] Medical Office [facility] [address] [facility] [address] [place] [address] [facility] Start: 05-20-2025 Influenza vaccination Influ[facility] Vaccine (#[facility] Start: 05-07-2025 End: 05-07-2025 Patient encounter procedure [facility] Comment on above: Cellulitis of left foot (Primary Dx); Acquired deformity of left toe; Acquired deformity of right toe Start: 05-04-2025 Bacteria identified in Urine by Culture Urine Culture [facility] Start: 05-04-2025 Urine culture [facility] Start: 04-25-2025 End: 10-23-2025 Cardiac Device Check - In Clinic Cardiac Device Check - In Clinic Implantable Cardiac Device Routine Pacemaker Expected: 04/25/2025 (Approximate), Expires: 10/23/2025 [facility] Work Phone: Comment on above: Expected: 04/25/2025 (Approximate), Expi res: 10/23/2025 Start: 04-23-2025 End: 04-23-2025 Patient encounter procedure 04/23/2025 11:30 AM EDT Procedure Visit [facility] [address] [place] [address] [address] [place] [address] Joseph Sepulveda, DPM [address] [facility] 5 [place] [address] [facility] Start: 04-20-2025 COVID-19 Vaccine ( season) COVID-19 Vaccine ( season) [facility] Start: 04-20-2025 COVID-19 Vaccine ( season) COVID-19 Vaccine ( season) [facility] Start: 04-20-2025 Influenza vaccination [facility] Start: 03-27-2025 Creatinine measurement Creatinine Level [facility] Start: 03-27-2025 Diabetes mellitus screening Diabetes Screening [facility] Start: 03-27-2025 Potassium measurement Potassium Level [facility] Start: 03-05-2025 End: 03-05-2025 Patient encounter procedure 03/05/2025 3:00 PM EDT Off ice Visit [facility] 7[address] [facility] 250 [place] [address] Debbie Mac MD 7[address] [facility] 2, [address] [place] [address] [facility] Start: 02-23-2025 End: 02-23-2025 Patient encounter procedure 02/23/2025 3:00 PM EDT Off ice Visit [facility] Medical Office Building [address] [facility] [address] [place] [address] Cristiana Chapa, SOLAR [employer]S ENGINEER-KICK PLATE INSTALLER [address] [facility] 130 [place] [address] [facility] Building Start: 02-12-2025 End: 02-12-2025 Patient encounter procedure 02/12/2025 10:30 AM EDT Office Visit [facility] [address] [facility] [address] [place] [address] Joseph Sepulveda DPM [address] [facility] 5 [place] [address] Arrived [facility] Comment on above: Arrived Start: 02-06-2025 Echocardiography Echocardiogram [facility] Start: 02-01-2025 [facility] Start: 01-31-2025 [facility] Start: 01-30-2025 [facility] Start: 01-29-2025 [facility] Start: 01-28-2025 [facility] Start: 01-27-2025 [facility] Start: 01-26-2025 Comprehensive metabolic 2000 panel - Serum or Plasma [facility] Start: 01-26-2025 [facility] Start: 01-25-2025 Comprehensive metabolic 2000 panel - Serum or Plasma [facility] Start: 01-25-2025 [facility] Start: 01-24-2025 Comprehensive metabolic 2000 panel - Serum or Plasma [facility] Start: 01-24-2025 [facility] Start: 01-23-2025 End: 01-23-2025 [facility] Start: 01-22-2025 Hospital admission [facility] Start: 01-22-2025 Referral to sock knitting machine operator [facility] Start: 01-22-2025 [facility] Start: 01-18-2025 Echocardiography Echocardiogram [facility] Start: 12-31-2024 End: 12-31-2024 Telemedicine consultation with patient 12/31/2024 8:45 AM EDT Telemedicine [facility] General Surgery [address] [place] [address] Nigel El MD [address] [place], [place] [id number] [facility] General Surgery Start: 12-30-2024 End: 12-30-2024 Telemedicine consultation with patient 12/30/2024 10:00 AM EDT Telemedicine [facility] General Surgery [address] [place] [address] Nigel El MD [address] [place] [address] [facility] General Surgery Start: 12-16-2024 End: 12-16-2024 Telemedicine consultation with patient 12/16/2024 2:15 PM EDT Telemedicine [facility] Surgery General [address] [place] [address] Nigel El MD [address] [place] [address] [facility] Surgery General Start: 12-08-2024 End: 12-08-2024 Admission to same day surgery center 12/08/2024 10:32 AM EDT - 12/08/2024 11:02 AM EDT Surgery [facility] [address] [place] [address] Nigel El MD [address] [place] [address] ESOPHAGOGASTRODUODENOSCOPY WITH ENDOFLIP [facility] Comment on above: ESOPHAGOGASTRODUODENOSCOPY WITH ENDOFLIP Start: 12-08-2024 Subsequent hospital visit by physician 12/08/2024 10:32 AM EDT Hospital Encounter [facility] [address] [place] [address] Nigel El MD [address] [place] [address] [facility] Start: 12-08-2024 End: 12-08-2024 Esophgl balo distension dx std w/[facility] Start: 12-04-2024 End: 06-05-2025 Cardiac Device Check - In Clinic Cardiac Device Check - In Clinic Implantable Cardiac Device Routine Pacemaker Expected: 12/04/2024, Expires: 06/05/2025 [facility] Service Area Work Phone: Comment on above: Expected: 12/04/2024, Expires: Start: 10-23-2024 End: 10-23-2025 Basic metabolic 2000 panel - Serum or Plasma Basic Metabolic Panel Lab Routine Persistent atrial fibrillation (Multi) Expected: 10/23/2024 (Approximate), Expires: 10/23/2025 [facility] Work Phone: Comment on above: Expected: 10/23/2024 (Approximate), Expi res: 10/23/2025 Start: 10-23-2024 End: 10-23-2025 CBC panel - Blood by Automated count CBC Lab Routine Persistent atrial fibrillation (Multi) Expected: 10/23/2024 (Approximate), Expires: 10/23/2025 [facility] Work Phone: Comment on above: Expected: 10/23/2024 (Approximate), Expi res: 10/23/2025 Start: 10-23-2024 End: 10-23-2025 Creatinine [Mass/volume] in Serum or Plasma Creatinine, Serum Lab Routine Persistent atrial fibrillation (Multi) High risk medication use Expected: 10/23/2024 (Approximate), Expires: 10/23/2025 [facility] Work Phone: Comment on above: Expected: 10/23/2024 (Approximate), Expi res: 10/23/2025 Start: 10-23-2024 End: 10-23-2025 CT Heart for congenital disease W contrast IV CT heart structure morphology congenital heart disease w IV contrast Imaging Routine Persistent atrial fibrillation (Multi) Expected: 10/23/2024, Expires: 10/23/2025 [facility] Work Phone: Comment on above: Expected: 10/23/2024, Expires: Start: 10-23-2024 End: 10-23-2025 Prothrombin time (PT) Protime-INR Lab Routine Persistent atrial fibrillation (Multi) Expected: 10/23/2024 (Approximate), Expires: 10/23/2025 [facility] Work Phone: Comment on above: Expected: 10/23/2024 (Approximate), Expi res: 10/23/2025 Start: 10-23-2024 End: 10-23-2025 US Heart Transesophageal Transesophageal Echo (VIRA) Echocardiography Routine Persistent atrial fibrillation (Multi) Expected: 10/23/2024, Expires: 10/23/2025 [facility] Work Phone: Comment on above: Expected: 10/23/2024, Expires: Start: 10-23-2024 End: 10-23-2024 Professional / ancillary services management 10/23/2024 12:20 PM EST Ancillary Procedure [facility] Medical Office Building [address] [facility] [address] [place] [address] [facility] Building Start: 10-23-2024 End: 10-23-2024 Patient encounter procedure 10/23/2024 11:00 AM EST Office Visit [facility] Medical Office [facility] [address] [facility] [address] [place] [address] Maxwell Medrano MD [address] [facility] [address] [place] [address] [facility] Building Start: 09-05-2024 End: 09-05-2025 Complete Pulmonary Function Test (Spirometry/DLCO/Lung Volumes) Complete Pulmonary Function Test (Spirometry/DLCO/Lung Volumes) PFT Routine Persistent atrial fibrillation (Multi) High risk medication use Expected: 09/05/2024 (Approximate), Expires: 09/05/2025 [facility] Service Area Work Phone: Comment on above: Expected: 09/05/2024 (Approximate), Expi res: 09/05/2025 Start: 09-05-2024 End: 09-05-2025 Thyrotropin [Units/volume] in Serum or Plasma Thyroid Stimulating Hormone Lab Routine Persistent atrial fibrillation (Multi) High risk medication use Expected: 09/05/2024 (Approximate), Expires: 09/05/2025 [facility] Work Phone: Comment on above: Expected: 09/05/2024 (Approximate), Expi res: 09/05/2025 Start: 09-04-2024 End: 09-04-2024 Patient encounter procedure 09/04/2024 1:50 PM EST Off ice Visit [facility] [address] [facility] [address] [place] [address] Debbie Mac MD [address] [facility], [address] [place] [address] [facility] Start: 08-21-2024 Echocardiography Echocardiogram [facility] Start: 07-24-2024 [facility] Start: 07-23-2024 Referral to mold burner [facility] Start: 07-22-2024 Administration of prophylactic treatment [facility] Start: 07-21-2024 [facility] Start: 07-21-2024 Referral to sock knitting machine operator [facility] Start: 07-21-2024 Hospital admission [facility] Start: 07-07-2024 End: 07-07-2024 Patient encounter procedure 07/07/2024 10:30 AM EST Office Visit [facility] Medical Office Building [address] [facility] [address] [place] [address] Cristinaa Chapa, SOLAR [employer]S ENGINEER-KICK PLATE INSTALLER [address] [facility] [address] [place] [address] [facility] Building Start: 07-03-2024 [facility] Start: 07-01-2024 [facility] Start: 07-01-2024 [facility] Start: 06-30-2024 [facility] Start: 06-30-2024 Physical therapy procedure [facility] Start: 06-30-2024 Referral to sock knitting machine operator [facility] Start: 06-30-2024 Referral to occupational therapist [facility] Start: 06-30-2024 End: 06-30-2024 [facility] Start: 06-30-2024 Hospital admission [facility] Start: 06-26-2024 Subsequent hospital visit by physician 06/26/2024 11:00 AM EST Hospital Encounter [facility] Radiology Department [address] [place] [address] [facility] Radiology Department Start: 06-05-2024 End: 06-05-2024 Patient encounter procedure 06/05/2024 12:00 PM EDT Office Visit [facility] Medical Office [place] [id number] [place] [address] Maxwell Medrano MD [address] [facility] [address] [place] [address] [facility] Office Building Start: 05-16-2024 End: 05-16-2024 Patient encounter procedure 05/16/2024 10:00 AM EDT Office Visit [address] [place] [address] Debbie Mac MD [address] [facility] 2, [address] [place] [address] [facility] Start: 04-28-2024 End: 04-28-2024 Patient encounter procedure 04/28/2024 11:30 AM EDT Office Visit [facility] Medical Office [place] [address] [place] [address] Maxwell Medrano MD [address] [place] [address] [facility] Office [facility] Start: 04-24-2024 End: 04-24-2024 Patient encounter procedure 04/24/2024 3:10 PM EDT [place] Visit [address] [place] [address] Debbie Mac MD [address] [facility] 2, [address] [place] [address] [facility] Start: 04-20-2024 COVID-19 Vaccine ( season) COVID-19 Vaccine ( season) [facility] Start: 04-20-2024 COVID-19 Vaccine ( season) COVID-19 Vaccine () [facility] Start: 04-20-2024 COVID-19 Vaccine ( season) COVID-19 Vaccine ( season) [facility] Start: 04-20-2024 Influenza vaccination Influenza Vaccine (#1) [facility] Start: 04-17-2024 End: 04-17-2025 Digoxin [Mass/volume] in Serum or Plasma Digoxin level Lab Routine High risk medication use Pacemaker Anticoagulation management encounter Longstanding persistent atrial fibrillation (Multi) Sinus bradycardia BMI 28.0-28.9,adult Never smoked any substance Expected: 04/17/2024 (Approximate), Expires: 04/17/2025 [facility] Service Area Work Phone: Comment on above: Expected: 04/17/2024 (Approximate), Expi res: 04/17/2025 Start: 04-07-2024 End: 04-07-2024 Patient encounter procedure 04/07/2024 9:45 AM EDT Off [place] Visit [address] [address] Maxwell Medrano MD [address] [place] [address] [facility] Start: 03-25-2024 End: 03-25-2024 Patient encounter procedure 03/25/2024 2:40 PM EDT Off ice Visit [facility] [address] [facility] [address] [place] [address] Debbie Mac MD [address] [place] [address] [address] [facility] [address] [place] [address] [facility] Start: 03-17-2024 End: 03-17-2024 Patient encounter procedure 03/17/2024 12:30 PM EDT Office Visit [address] [place] [address] Maxwell Medrano MD [address] [place] [address] [facility] Start: 02-28-2024 End: 02-24-2025 ECG 12 Lead ECG 12 Lead ECG Routine Persistent atrial fibrillation (Multi) Expected: 02/28/2024 (Approximate), Expires: 02/24/2025 [facility] Service Area Work Phone: Comment on above: Expected: 02/28/2024 (Approximate), Expi res: 02/24/2025 Start: 02-28-2024 End: 02-28-2024 Professional / ancillary services management 02/28/2024 1:00 PM EDT Ancillary Procedure [facility] [address] [place] [address] [facility] Start: 01-20-2024 [facility] Start: 01-19-2024 [facility] Start: 01-18-2024 Referral to sock knitting machine operator [facility] Start: 01-18-2024 [facility] Start: 01-18-2024 Hospital admission [facility] Start: 11-28-2023 End: 11-28-2023 Patient encounter procedure 11/28/2023 3:10 PM EDT Off [place] Visit [facility] [address] [place] [address] Debbie Mac MD [address] [place] [address] [facility] Start: 09-19-2023 End: 09-19-2023 Patient encounter procedure 09/19/2023 1:00 PM EST Off ice Visit [facility] [address] [place] [address] Debbie Mac MD [address] [place] [address] [facility] Start: 09-02-2023 Echocardiography Echocardiogram [facility] Start: 08-20-2023 Annual wellness visit Annual Wellness Visit ([id number]) [facility] Start: 07-05-2023 End: 07-05-2023 Patient encounter procedure 07/05/2023 1:30 PM EST Appointment [facility] [address] [place] [address] [place] [address] [facility] Start: 05-31-2023 FUV, Provider: Debbie Mac, Status: Pen, Time: 3:00 PM FUV, Provider: Debbie Mac, Status: Pen, Time: 3:00 PM [facility] Work Phone: Start: 05-31-2023 End: 05-31-2025 Heart Transthoracic Transthoracic Echo (TTE) Complete Echocardiography Routine Chronic diastolic heart failure (CMS/HCC) Essential hypertension, benign Dyspnea, unspecified type Expected: 05/31/2023 (Approximate), Expires: 05/31/2025 [facility] Service Area Work Phone: Comment on above: Expected: 05/31/2023 (Approximate), Expi res: 05/31/2025 Start: 05-09-2023 FUV, Provider: Maxwell Medrano, Status: Pen, Time: 4:00 PM FUV, Provider: Maxwell Medrano, Status: Pen, Time: 4:00 PM [facility] 250 DO Work Phone: Start: 04-20-2023 COVID-19 Vaccine ( season) COVID-19 Vaccine ( season) [facility] Start: 04-20-2023 Influenza vaccination Influenza Vaccine (#1) [facility] Start: 04-04-2023 FUV, Provider: Maxwell Medrano, Status: Pen, Time: 3:00 PM FUV, Provider: Maxwell Medrano, Status: Pen, Time: 3:00 PM [facility] 250 DO Work Phone: Start: 03-05-2023 [facility] Start: 03-05-2023 [facility] Start: 02-14-2023 FUV, Provider: Maxwell Medrano, Status: Pen, Time: 1:30 PM FUV, Provider: Maxwell Medrano, Status: Pen, Time: 1:30 PM [facility] Work Phone: Start: 01-09-2023 [facility] Start: 01-04-2023 FUV, Provider: Debbie Mac, Status: Pen, Time: 1:50 PM FUV, Provider: Debbie Mac, Status: Pen, Time: 1:50 PM [facility] 250 DO Work Phone: Start: 11-27-2022 Laparoscopic cholecystectomy OR Cholecystectomy Laparoscopic (Not Applicable) [facility] Start: 11-27-2022 End: 11-27-2022 [facility] Start: 10-13-2022 FUV, Provider: Debbie Mac, Status: Pen, Time: 10:30 AM FUV, Provider: Debbie Mac, Status: Pen, Time: 10:30 AM [facility] 250 [place] Work Phone: Start: 09-21-2022 [facility] Start: 09-17-2022 Hospital admission [facility] Start: 09-17-2022 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 to 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 knitting machine operator [facility] Start: 09-17-2022 Bacteria identified in Urine by Culture [facility] Start: 09-06-2022 [facility] Start: 09-05-2022 Blood chemistry [facility] Start: 09-05-2022 [facility] Start: 09-04-2022 Administration of prophylactic treatment [facility] Start: 09-04-2022 Blood chemistry [facility] Start: 09-04-2022 [facility] Start: 09-03-2022 Blood chemistry [facility] Start: 09-03-2022 [facility] Start: 09-02-2022 Blood chemistry [facility] Start: 09-02-2022 Brain natriuretic peptide measurement [facility] Start: 09-02-2022 Magnesium measurement [facility] Start: 09-02-2022 [facility] Start: 09-01-2022 Referral to sock knitting machine operator [facility] Start: 09-01-2022 Hospital admission [facility] Start: 09-01-2022 [facility] Start: 09-01-2022 Bacteria identified in Urine by Culture Urine Culture [facility] Start: 07-12-2022 FUV, Provider: Debbie Mac, Status: Pen, Time: 2:40 PM FUV, Provider: Debbie Mac, Status: Pen, Time: 2:40 PM -[facility] 250 DO Work Phone: Start: 03-09-2022 [facility] Work Phone: Start: 02-22-2022 FUV, Provider: Debbie Mac, Status: Pen, Time: 2:50 PM FUV, Provider: Debbie Mac, Status: Pen, Time: 2:50 PM -[facility] 250 DO Work Phone: Start: 01-08-2022 COVID-19 Vaccine (3 - Pfizer series) COVID-19 Vaccine (3 - Pfizer series) [facility] Start: 01-03-2022 [facility] Work Phone: Start: 10-19-2021 FUV, Provider: Debbie Mac, Status: Pen, Time: 3:30 PM FUV, Provider: Debbie Mac, Status: Pen, Time: 3:30 PM -[facility] 250 DO Work Phone: Start: 09-12-2021 FUV, Provider: Debbie Mac, Status: Pen, Time: 2:50 PM FUV, Provider: Debbie Mac, Status: Pen, Time: 2:50 PM -[facility] 250 DO Work Phone: Start: 07-26-2021 FUV, Provider: Debbie Mac, Status: Pen, Time: 2:00 PM -[facility] 250 DO Work Phone: Start: 06-23-2021 [facility], Provider: Debbie Mac, Status: Pen, Time: 10:00 AM [facility], Provider: Debbie Mac, Status: Pen, Time: 10:00 AM [facility] 250[facility] [place] Work Phone: Start: 11-08-2019 Pneumococcal Vaccine: 65+ Years (2 - PCV) Pneumococcal Vaccine: 65+ Years (2 - PCV) [facility] Start: 11-08-2019 Pneumococcal Vaccine: 65+ Years (2 of 2 - PCV) Pneumococcal Vaccine: 65+ Years (2 of 2 - PCV) [facility] Start: 2017 RSV High Risk: (Elderly (60+) or Population) (1 - 1-dose 75+ series) RSV High Risk: (Elderly (60+) or Population) (1 - 1-dose 75+ series) [facility] Start: 2017 RSV Vaccine (75+ years) RSV Vaccine (75+ years) [facility] Start: 2017 RSV vaccine (adult) (1 - 1-dose 75+ series) RSV vaccine (adult) (1 - 1-dose 75+ series) [facility] Start: 10-31-2012 Zoster Vaccines (2 of 3) Zoster Vaccines (2 of 3) [facility] Start: 2007 Pneumococcal vaccination Pneumococcal Vaccine(s) (65+ yrs) (1 of 1 - PCV) [facility] Start: 2007 Screening for osteoporosis [facility] Start: 2002 Hepatitis B (HBV) Vaccine (optional start 60+ years) Hepatitis B (HBV) Vaccine (optional start 60+ years) [facility] Start: 2002 Hepatitis B Vaccines (1 of 3 - Risk 3-dose series) Hepatitis B Vaccines (1 of 3 - Risk 3-dose series) [facility] Start: 2002 RSV patients and/or patients aged 60+ years (1 - 1-dose 60+ series) RSV patients and/or patients aged 60+ years (1 - 1-dose 60+ series) [facility] Start: 1992 Pneumococcal vaccination Pneumococcal Vaccine(s) (50+ yrs) (1 of 1 - PCV) [facility] Start: 1992 Shingles (RZV) Vaccine (1 of 2) Shingles (RZV) Vaccine (1 of 2) [facility] Start: 1961 Hepatitis A (HAV) Vaccine (optional start 19+ years) Hepatitis A (HAV) Vaccine (optional start 19+ years) [facility] Start: 1961 Hepatitis A Vaccines (1 of 2 - Risk 2-dose series) Hepatitis A Vaccines (1 of 2 - Risk 2-dose series) [facility] Start: 1961 Urine screening for protein CKD: Urine Protein Screening [facility] Start: 1960 Diabetes mellitus screening Diabetes Screening [facility] Start: 1942 Creatinine measurement Creatinine Level [facility] Start: 1942 Lipid panel Lipid Panel [facility] Start: 1942 Medicare Annual Wellness Visit Medicare Annual Wellness Visit (AWV) [facility] Start: 1942 Potassium measurement Potassium Level [facility] Start: 1942 Screening for osteoporosis Bone Density Scan [facility] Start: 1942 Thyroid stimulating hormone measurement TSH Level [facility] ABLATION A-FIB ABLATION A-FIB P ersistent atrial fibrillation (Multi) [facility] Work Phone: Albumin/Globulin ratio [facility] Anion gap measurement [facility] Basophils [#/volume] in Blood by Automated count [facility] Basophils/100 leukoc ytes in Blood by Automated count [facility] End: 12-04-2024 Cardiac Device Check - Remote Cardiac Device Check - R emote Implantable Cardiac Device Routine Pacemaker 52 Occurrences starting 06/05/2024 until 12/04/2024 [facility] Work Phone: Comment on above: 52 Occurrences starting 06/05/2024 until 12/04/2024 End: 09-08-2024 Cardiac Device Check - Remote [facility] Work Phone: Comment on above: Once for 1 Occurrences starting 09/08/19 until 09/08/2024 End: 04-25-2025 Cardiac Device Check - Remote Cardiac Device Check - R emote Implantable Cardiac Device Routine Pacemaker 52 Occurrences starting 10/23/2024 until 04/25/2025 [facility] Work Phone: Comment on above: 52 Occurrences starting 10/23/2024 until 04/25/2025 Cardiac Device Check - Remote Ca rdiac Device Check - Remote Implantable Cardiac Device Routine Pacemaker Sick sinus syndrome (Multi) 05/19/2025 10:43 AM EDT [facility] Work Phone: Comprehensive metabo lic 2000 panel - Serum or Plasma [facility] End: 05-01-2025 Creatinine [Mass/volume] in Serum or Plasma [facility] Work Phone: Comment on above: Once (Lab) for 1 Occurrences starting until 05/01/2025 CT Abdomen and Pelvi s W contrast IV [facility] CT Abdomen and Pelvi s W contrast IV [facility] ECG 12 Lead ECG 12 Lead ECG Routine Persistent atrial fibrillation (Multi) 02/23/2025 3:00 PM EDT [facility] Work Phone: Eosinophils/100 leuk ocytes in Blood by Automated count [facility] Ephys eval w/ablatio n ventricular tachycardia ABLATION A-FIB PAROXYSMAL Persistent atrial fibrillation (Multi) [facility] Lathe Operator Erythrocyte distribu tion width [Ratio] by Automated count [facility] Erythrocytes [#/volu me] in Blood [facility] Esophageal motility study w/interp&rpt ESOPHAGUS MOTILITY (MANOMETRY) STUDIES Procedures Routine Esophageal dysphagia 05/29/2024 3:48 PM EDT [facility] [employer] [facility] Work Phone: Esophagogastroduoden oscopy transoral diagnostic ESOPHAGOGASTRODUODENOSCOPY Esophageal dysphagia [facility] Esophgl balo distens ion dx std w/provocation ESOPHAGOGASTRODUODENOSCOPY WITH ENDOFLIP Esophageal dysphagia [employer] Globulin [Mass/volum e] in Serum [facility] Hematocrit [Volume F raction] of Blood [facility] Hemoglobin [Mass/vol ume] in Blood [facility] Hepatitis A virus an tibody, IgM type [facility] Work Phone: Hepatitis B core ant ibody measurement, IgM type [facility] Work Phone: Hepatitis B virus vieira rface Ag [Presence] in Serum or Plasma by Immunoassay [facility] Work Phone: Hepatitis C virus Ab Signal/Cutoff in Serum or Plasma by Immunoassay [facility] Work Phone: Hepatitis C virus RN A [log units/volume] (viral load) in Serum or Plasma by GUILLERMO with probe detection [facility] Work Phone: Hepatitis C virus RN A [Units/volume] (viral load) in Serum or Plasma by GUILLERMO with probe detection [facility] Work Phone: Homogenous nuclear A b pattern [Titer] in Serum [facility] Work Phone: Leukocytes [#/volume ] corrected for nucleated erythrocytes in Blood by Automated coun [facility] Leukocytes [#/volume ] in Blood [facility] Lymphocytes [#/volum e] in Blood by Automated count [facility] Lymphocytes/100 leuk ocytes in Blood by Automated count [facility] MCH [Entitic mass] b y Automated count [facility] MCHC [Mass/volume] b y Automated count [facility] MCV [Entitic volume] by Automated count [facility] Monocytes [#/volume] in Blood by Automated count [facility] Monocytes/100 leukoc ytes in Blood by Automated count [facility] Neutrophils [#/volum e] in Blood by Automated count [facility] Neutrophils/100 leuk ocytes in Blood by Automated count [facility] Nuclear Ab [Titer] in Serum [facility] Work Phone: Nucleated erythrocyt es [Presence] in Blood by Automated count [facility] Patient Education [facility] Work Phone: Patient referral [facility] Work Phone: Platelet mean volume [Entitic volume] in Blood by Automated count [facility] Platelets [#/volume] in Blood [facility] End: 08-21-2023 [facility] Work Phone: Comment on above: Once for 1 Occurrences starting 08/21/19 24 until 08/21/2023 [facility] Immunizations Immunization Date Immunization Notes Care Provider Rola amritrosaura 06-29-2023 influenza, high dose seasonal, preservative-free Jazmin العلي Other [facility] Other 06-29-2023 influenza virus vaccine, unspecified formulation DO Jazmin العلي Work Phone: [facility] 05-26-2022 Fluad Quadrivalent 0 .5 ML Intramuscular Prefilled Syringe Jazmin العلي Work Phone: [facility] 563 DO Work Phone: 05-26-2022 influenza virus vaccine, split virus (incl. purified surface antigen) Jazmin العلي Other [facility] Other 05-26-2022 influenza virus vaccine, unspecified formulation Debbie Mac MD Work Phone: [facility] 11-13-2021 Comirnaty 30 MCG/0.3 ML Intramuscular Suspension Jazmin العلي Work Phone: [facility] 250 DO Work Phone: 11-13-2021 COVID-19 mRNA, Comirnaty (Pfizer) DO Jazmin العلي Work Phone: [facility] 07-11-2021 tetanus toxoid, redu maranda diphtheria toxoid, and acellular pertussis vaccine, adsorbed Jazmin العلي Work Phone: [facility] 06-14-2021 influenza virus vaccine, split virus (incl. purified surface antigen) Jazmin العلي Other [facility] Other 06-14-2021 influenza virus vaccine, unspecified formulation DO Jazmin العلي Work Phone: [facility] 10-07-2020 Pfizer-BioNTech COVID-19 Vacc 30 MCG/0.3ML Intramuscular Suspension Jazmin العلي Work Phone: [facility] Comment on above: Series: 09-17-2020 COVID-19 Vaccine Moderna - Documentation Purposes Only Jazmin العلي Other [facility] 09-17-2020 Pfizer-BioNTech COVID-19 Vacc 30 MCG/0.3ML Intramuscular Suspension Jazmin العلي Work Phone: [facility] Comment on above: Series: 05-20-2020 influenza, seasonal, injectable Jazmin العلي Work Phone: [facility] [employer] 250 DO Work Phone: Comment on above: Series: 05-05-2020 Flu Vaccine - Adult DO George العلي Work Phone: [facility] 05-05-2020 influenza virus vaccine, split virus (incl. purified surface antigen) Jazmin العلي Other [facility] Other 05-05-2020 influenza virus vaccine, unspecified formulation DO Jazmin العلي Work Phone: [facility] 05-05-2020 influenza, seasonal, injectable Jazmin العلي Work Phone: [facility] 05-20-2019 influenza, high dose seasonal, preservative-free Jazmin العلي Work Phone: [facility] [employer] 250 DO Work Phone: 11-07-2018 pneumococcal polysaccharide vaccine, 23 valent Jazmin العلي Work Phone: [facility] [employer] 250 DO Work Phone: 06-12-2018 influenza virus vaccine, split virus (incl. purified surface antigen) Jazmin العلي Other [facility] Other 06-12-2018 influenza virus vaccine, unspecified formulation DO Jazmin العلي Work Phone: [facility] 06-12-2018 Seasonal trivalent influenza vaccine, adjuvanted, preservative free Jazmin العلي Work Phone: [place] [address] DO Work Phone: 05-20-2018 influenza, injectabl e, quadrivalent, preservative free Jazmin العلي Work Phone: [place] [address] DO Work Phone: 06-21-2017 diphtheria, tetanus toxoids and acellular pertussis vaccine, unspecified formulation Jazmin العلي Other [facility] 07-06-2016 pneumococcal conjuga te vaccine, 13 valent Jazmin العلي Other [facility] 07-06-2016 pneumococcal Conjuga te, unspecified formulation; Translations: [Need for prophylactic vaccination against Streptococcus pneumoniae (pneumococcus)] Jazmin العلي Other [facility] Other 03-20-2015 pneumococcal polysaccharide vaccine, 23 valent Jazmin العلي Work Phone: [place] [address] DO Work Phone: Comment on above: Series: 03-20-2014 influenza virus vaccine, unspecified formulation Jazmin العلي Work Phone: [place] [address] DO Work Phone: 06-24-2013 tetanus and diphther ia toxoids, adsorbed, preservative free, for adult use (5 Lf of tetanus toxoid and 2 Lf of diphtheria toxoid) Jazmin العلي Other [facility] 09-05-2012 zoster vaccine, live Arlette العلي Work Phone: [place] [address] DO Work Phone: 07-29-2008 pneumococcal polysaccharide vaccine, 23 valent Jazmin العلي Other [facility] Payers Date Payer Category Payer Medicare [id number] 2024 Self-pay [id number] 2022 Medicare [id number] 2022 Medicare (Managed Care) 1.2. [id number] 2022 Unknown 2020 Medicare [id number] 2009 Unknown [id number] 1959 Private Health Insurance [id number] 1942 Unknown [id number] 2.16.8 40.1.704877.3.579.2.647 1942 Unknown [id number] 2.16. 840.1.648429.3.579.2.356 1942 Unknown [id number] 2.16.84 0.1.256485.3.579.2.593 1942 Unknown [id number] 2.16.84 0.1.786990.3.579.2.593 1942 Unknown [id number] 2.16.84 0.1.231704.3.579.2.593 1942 Unknown [id number] 2.16.84 0.1.351177.3.579.2.593 1942 Unknown [id number] 2.16.84 0.1.422404.3.579.2.593 1942 Unknown [id number] 2.16.84 0.1.882126.3.579.2.593 1942 Unknown [id number] 2.16.84 0.1.773398.3.579.2.593 1942 Unknown [id number] 2.16.8 40.1.085292.3.579.2.1245 1942 Unknown [id number] 2.16. 840.1.825853.3.579.2.196 1942 Unknown [id number] 2.16. 840.1.985901.3.579.2.196 1942 Unknown [id number] 2.16. 840.1.473566.3.579.2.196 1942 Unknown [id number] 2.16. 840.1.723624.3.579.2.196 1942 Unknown [id number] 2.16. 840.1.938209.3.579.2.196 1942 Unknown [id number] 2.16. 840.1.403394.3.579.2.196 1942 Unknown [id number] 2.16. 840.1.528635.3.579.2.732 1942 Unknown [id number] 2.16. 840.1.989617.3.579.2.732 1942 Unknown [id number] 2.16. 840.1.674135.3.579.2.732 1942 Unknown [id number] 2.16. 840.1.184221.3.579.2.732 1942 Unknown [id number] 2.16. 840.1.559198.3.579.2.732 1942 Unknown [id number] 2.16. 840.1.364230.3.579.2.732 1942 Unknown [id number] 2.16. 840.1.524508.3.579.2.732 1942 Unknown [id number] 2.16. 840.1.715722.3.579.2.732 1942 Unknown [id number] 2.16. 840.1.512149.3.579.2.732 1942 Unknown [id number] 2.16. 840.1.857646.3.579.2.732 1942 Unknown [id number] 2.16. 840.1.755881.3.579.2.1244 1942 Unknown [id number] 2.16. 840.1.809337.3.579.2.1244 1942 Unknown [id number] 2.16. 840.1.748621.3.579.2.1244 1942 Unknown [id number] 2.16. 840.1.037564.3.579.2.1244 1942 Unknown [id number] 2.16. 840.1.462599.3.579.2.1244 1942 Unknown [id number] 2.16. 840.1.757997.3.579.2.1244 1942 Unknown [id number] 2.16.8 40.1.469127.3.579.2.1259 1942 Unknown [id number] 2.16.8 40.1.236881.3.579.2.1259 1942 Unknown [id number] 2.16.8 40.1.151287.3.579.2.1259 1942 Unknown [id number] 2.16.8 40.1.828163.3.579.2.1246 1942 Unknown [id number] 2.16.8 40.1.865895.3.579.2.1246 1942 Unknown [id number] 2.16.8 40.1.693595.3.579.2.1246 1942 Unknown [id number] 2.16.8 40.1.516742.3.579.2.1246 1942 Unknown [id number] 2.16.8 40.1.614825.3.579.2.1246 1942 Unknown [id number] 2.16.8 40.1.339858.3.579.2.1246 1942 Unknown [id number] 2.16.8 40.1.646917.3.579.2.1246 1942 Unknown [id number] 2.16.8 40.1.040535.3.579.2.1246 Medicare [id number] Private Health Insurance [id number] Unknown [id number] 2.16.8 40.1.928134.3.579.2.531 Unknown [id number] 2.16.8 40.1.832815.3.579.2.531 Unknown [id number] 2.16.8 40.1.325798.3.579.2.531 Unknown [id number] 2.16.8 40.1.527385.3.579.2.531 Unknown [id number] 2.16.8 40.1.237366.3.579.2.531 Unknown [id number] 2.16.8 40.1.804962.3.579.2.531 Unknown [id number] 2.16.8 40.1.308583.3.579.2.531 Social History Date Type Detail Facility Start: 05-31-2023 End: 03-21-2024 No alcohol use No alcohol use [place] [address] DO Work Phone: Start: 08-22-2021 End: 05-31-2023 Tobacco smoking status NHIS Never smoked tobacco (finding) [facility] Start: 1940 Sex Assigned At Female [facility] Start: 05-31-2023 End: 03-21-[address] [facility] [employer] Other Start: 05-31-2023 End: 05-28-2024 Tobacco use and exposure Smokeless tobacco non-user [facility] Work Phone: Start: 05-31-2023 End: 02-23-2025 Alcohol intake Lifetime non-drinker (finding) [facility] Work Phone: Start: 1940 Sex Assigned At Not on file [facility] Work Phone: Start: 05-21-2023 End: 10-23-2024 Exposure to SARS-CoV-2 (event) Not sure [facility] Tobacco smoking stat [facility] Tobacco smoking consumption unknown [facility] How often to you hav e a drink containing alcohol? Never [facility] Start: 07-15-2022 How many standard drinks containing alcohol do you have on a typical day? Patient does not drink [facility] Work Phone: In the past 12 month s, was there a time when you were not able to pay the mortgage or rent on time? No [facility] Work Phone: Start: 04-23-2024 End: 01-23-2025 Sex Female (finding) [facility] Work Phone: Start: 02-21-2023 Alcohol Comment caffeine: none [facility] Medical Equipment Procedure Code Equipment Code Equipment Origin al Text Equipment Identifier Dates Insertion, pacemaker Endocardial pacing lead [id number] FDA Start: 06-29-2021 Insertion, pacemaker Endocardial pacing lead [id number] FDA Start: 06-29-2021 Insertion, pacemaker Dual-chambe r implantable pacemaker, rate-responsive [id number] FDA Start: 06-29-2021 Cystoscopy, with ureteral calculus manipulation and stent placement Polymeric ureteral stent [id number] FDA Start: 07-01-2021 Goals Date Patient Goal Desired Activity /State Personal health goal Functional Status Date Assessment Result Facility 01-23-2025 Functional status Patient at Baseline [facility] Work Phone: 07-24-2024 Functional status Patient at Baseline [facility] Work Phone: 07-03-2024 Functional status Patient at Baseline [facility] Work Phone: 06-30-2024 Functional status Disability Sta tus Patient at Baseline [facility] Work Phone: 03-27-2024 Are you deaf, or do you have serious difficulty hearing No 03/27/2024 1:02 PM Vera Figueroa, RN No [facility] 03-27-2024 Are you blind, or do you have serious difficulty seeing, even when wearing glasses No 03/27/2024 1:02 PM Vera Figueroa, RN No [facility] Work Phone: 03-27-2024 Do you have serious difficulty walking or climbing stairs No 03/27/2024 1:02 PM Vera Figueroa, RN No [facility] Work Phone: 03-27-2024 Do you have difficul ty dressing or bathing No 03/27/2024 1:02 PM Vera Figueroa, RN No [facility] Work Phone: 03-27-2024 Because of a physica l, mental, or emotional condition, do you have difficulty doing errands alone such as visiting a physician's office or shopping No 03/27/2024 1:02 PM Vera Figueroa, RN No [facility] Work Phone: 01-20-2024 Functional status Patient at Baseline [facility] Work Phone: 09-21-2022 Functional status Patient at Baseline [facility] Work Phone: 09-06-2022 Functional status Patient at Baseline [facility] Work Phone: 09-02-2022 Functional status Bathing Patien t at Baseline [facility] Work Phone: Mental Status Date Assessment Result Facility 01-23-2025 Cognitive function Cognitive Sta tus Patient at Baseline [facility] Work Phone: 07-24-2024 Cognitive function Cognitive Sta tus Patient at Baseline [facility] Work Phone: 07-03-2024 Cognitive function Cognitive Sta tus Patient at Baseline [facility] Work Phone: 03-27-2024 Because of a physica l, mental, or emotional condition, do you have serious difficulty concentrating, remembering, or making decisions No 03/27/2024 1:02 PM EDT Vera Ang, ROSA [facility] Work Phone: 01-20-2024 Cognitive function Cognitive Sta tus Patient at Baseline [facility] Work Phone: 09-21-2022 Cognitive function Cognitive Sta tus Patient at Baseline [facility] Work Phone: 09-06-2022 Cognitive function Cognitive Sta tus Patient at Baseline [facility] Work Phone: Clinical Notes 06-21-2021 to 05-07-2025 [...] by mouth Daily, Disp: , Rfl: HYDROcodone-acetaminophen ([place]) 10-325 MG tablet, 1 tablet, Disp: , [...] Resource Strain: Low Risk (03/21/2024) Received from [facility] Overall Financial Resource Strain (CARDIA) Difficulty of Paying Living Expenses: Not hard at all Food Insecurity: Not on file Transportation Needs: No Transportation Needs (03/24/2024) Received from [facility] PRAPARE - Transportation Lack of Transportation (Medical): No Lack of Transportation (Non-Medical): No Physical Activity: Not on file Stress: Not on file Social Connections: Not on file Intimate Partner Violence: Unknown (02/14/2024) Received from [facility] [place] [facility] Environment Fear of Current or Ex-Partner: Not on file Emotionally Abused: Not on file Physically Abused: Not on file Sexually Abused: Not on file Physically or Sexually Abused: Not on file Housing Stability: Low Risk (03/21/2024) Received from [facility] Housing Stability Vital Sign Unable to Pay [...] Joseph Sepulveda DPM documented in this encounter [facility] 02-23-2025 History of Present illness Narrative Chief Complaint: Chief Complaint Patient presents with Follow-up Pacemaker check follow up Austin Golden is a 84 y.o. female that presents to the office today for cardiac follow-up. She follows with her primary sock knitting machine operator Dr. Mac and Dr. Medrano. She was [...] procedure at that time. Recently admitted to [facility] 01/23/2025 with atrial flutter both RVR [...] who recommends proceeding with PVI ablation at [facility]. Will proceed with previously placed CT [...] Left 03/22/2024 Procedure: Left Heart Cath; Surgeon: Soun Mendez MD; Location: [facility]; Service: Cardiovascular; Laterality: Left; CT ANGIO NECK [...] 10/19/2021 Pacemaker insertion documented in this encounter [facility] Work Phone: 02-12-2025 History of Present illness Narrative Patient: Austin Golden : 1940 PCP: DO STEVE Galloway This is a 84 y.o. female that [...] by mouth Daily, Disp: , Rfl: HYDROcodone-acetaminophen ([place]) 10-325 MG tablet, 1 tablet, Disp: , [...] Resource Strain: Low Risk (03/21/2024) Received from [facility] Overall Financial Resource Strain (CARDIA) Difficulty of Paying Living Expenses: Not hard at all Food Insecurity: Not on file Transportation Needs: No Transportation Needs (03/24/2024) Received from [facility] PRAPARE - Transportation Lack of Transportation (Medical): No Lack of Transportation (Non-Medical): No Physical Activity: Not on file Stress: Not on file Social Connections: Not on file Intimate Partner Violence: Unknown (02/14/2024) Received from [facility] [place] Safety & Environment Fear of Current or Ex-Partner: Not on file Emotionally Abused: Not on file Physically Abused: Not on file Sexually Abused: Not on file Physically or Sexually Abused: Not on file Housing Stability: Low Risk (03/21/2024) Received from [facility] Housing Stability Vital Sign Unable to Pay [...] Joseph Sepulveda DPM documented in this encounter [facility] 01-23-2025 Consult note Note Date/Time January 23, 2025 11:20am [facility] [address] [place] [address] Cardiology Consult Note Signed Patient: Austin Golden MR#: [id number] : 1940 Acct:[id number] Age/Sex: 84 / F Adm Date: 5 Loc: Room: [address] [place] [address] Type: ADM IN Attending Dr: Fahad Kim DO Copies to: DO Jimena Carias MD, [facility] Fahad Kim DO~ Cardiology HPI History [...] comfortably. The patient was evaluated electrophysiology at [facility] Dr. Medrano and ablation was [...] List clean-up per request of Phys. EHR [facility] Fibromyalgia Problem List clean-up per request of Phys. EHR [facility] Arthritis back and neck Problem List clean-up per request of Phys. EHR [facility] Hypertension Problem List clean-up per request of Phys. EHR [facility] History of cardiac pacemaker in situ Presbyesophagus Hiatal hernia Restless leg Hyperlipemia Problem List clean-up per request of Phys. EHR Cmte CHF (congestive heart failure) Problem List clean-up per request of Phys. EHR [facility] Kidney stones removal of kidney stone R flank in 2021 Problem List clean-up per request of Phys. EHR [facility] Pacemaker Problem List clean-up per request of Phys. EHR Cmte Atrial fibrillation, persistent Problem List clean-up per request of Phys. EHR [facility] COVID-19 2019 Problem List clean-up per request of Phys. EHR [facility] Atrial fibrillation with RVR Problem List clean-up per request of Phys. EHR [facility] Hernia of abdominal wall Problem List clean-up per request of Phys. EHR [facility] Surgical History History of repair of hiatal hernia (~2014) History of left heart catheterization (~03/2024) LHC: LAD 40-50%, diagonal 70%, RCA 40-50%, normal LVEF - 03/2024 History of cholecystectomy 2022 History of colonoscopy 2011 History of cardiac catheterization Problem List clean-up per request of Phys. EHR [facility] H/O eye surgery right eye Problem List [...] at the [facility] Medications and Allergies Allergies No Known [...] applic topical BID 10 days #22 grams 05/27/25 [Rx Confirmed 01/22/25] doxycycline hyclate 100 mg [...] Lymph # (Auto) 1.4 1.1 (1.00-4.8) x10E3/uL [place] # (Auto) 0.6 0.5 (0.0-0.8) x10E3/uL Eos [...] MG/HR 10 mls/hr IV .Q10H [facility] Rx#:[id number] Oral 200 / 200 Other: # Voids [...] Code(s): I25.10 - Atherosclerotic heart disease of [place] coronary artery without angina pectoris (3) Esophageal [...] will be referred back to electrophysiology at [facility] for ablation of atrial fibrillation, the patient is agreeable, arrangements will be made through our office Code(s): I48.19 - Other persistent atrial fibrillation Documented By: Jimena Smith MD, CLAUDIA 5 1111 Signed By: <Electronically signed by MD FACC Jimena Smith> 01/23/25 1120 [facility] Work Phone: 1(970) 499-733206-06-[address] [address] Cardiology Consult Note Signed Patient: Austin Golden MR#: [id number] : 1940 Acct:[id number] Age/Sex: 84 / F Adm Date: 5 Loc: Room: [address] [place] [address] Type: ADM IN Attending Dr: Fahad Kim DO Copies to: DO Jimena Carias MD, [facility] Fahad Kim, DO~ Cardiology HPI History of [...] comfortably. The patient was evaluated electrophysiology at [facility] Dr. Medrano and ablation was [...] List clean-up per request of Phys. EHR [facility] COVID-19 2019 Problem List clean-up per request of Phys. EHR Cmte Atrial fibrillation with RVR Problem List clean-up per request of Phys. EHR Cmte Hernia of abdominal wall Problem List clean-up per request of Phys. EHR [facility] Surgical History History of repair of hiatal hernia (~2014) History of left heart catheterization (~03/2024) LHC: LAD 40-50%, diagonal 70%, RCA 40-50%, normal LVEF - 03/2024 History of cholecystectomy 2022 History of colonoscopy 2011 History of cardiac catheterization Problem List clean-up per request of Phys. EHR [facility] H/O eye surgery right eye Problem List clean-up per request of Phys. EHR [facility] History of cataract surgery marybeth eye Problem List clean-up per request of Phys. EHR [facility] History of appendectomy Problem List clean-up per request of Phys. EHR Cmte History of tonsillectomy Problem List clean-up per request of Phys. EHR [facility] H/O foot surgery left Problem List clean-up per request of Phys. EHR [facility] History of hysterectomy Problem List clean-up per request of Phys. EHR [facility] Family History Father Heart & renal disease, hypertensive, with heart fail/chron kidney dis Depression Sister Heart disease Mother Brain tumor Father Mother Social History Smoking Status: Never smoker Substance Use Type: None Substance Abuse Comment: etoh occasional Social History Comments: independent living at the [facility] Medications and Allergies Allergies No Known [...] mg PO DAILY #30 caps 09/17/24 [Rx Zxaperzsb43/05/25] duloxetine 30 mg capsule,delayed release 30 mg [...] Lymph # (Auto) 1.4 1.1 (1.00-4.8) x10E3/uL [place] # (Auto) 0.6 0.5 (0.0-0.8) x10E3/uL Eos [...] 10 MG/HR 10 mls/hr IV .Q10H [facility] Rx#:[id number] Oral 200 / 200 Other: # Voids [...] Code(s): I25.10 - Atherosclerotic heart disease of [place] coronary artery without angina pectoris (3) Esophageal [...] will be referred back to electrophysiology at [facility] for ablation of atrial fibrillation, the patient is agreeable, arrangements will be made through our office Code(s): I48.19 - Other persistent atrial fibrillation Documented By: Jimena Smith MD, [facility] 1111 Signed By: 01/23/[address] [place], [place] 4930706-06-2025 History and physical note Author Ángel Minaya [facility] Note Date/Time January 22, 2025 11:17 pm [facility] [address] [place] [address] Hospitalist H&P Signed Patient: Austin Golden MR#: [id number] : 1940 Acct:[id number] Age/Sex: 84 / F Adm Date: 5 Loc: ER Room: Type: [facility] ER Attending Dr: Copies to: MD Jazmin Connor DO Thomas D Kramer Jr, MD~ HPI DATE OF EXAMINATION: 01/22/25 CHIEF COMPLAINT: Shortness of breath HISTORY OF PRESENT ILLNESS: This is a 84-year-old female with significant past medical history of atrial fibrillation, CKD, coronary artery disease, anxiety, GERD, pulmonary hypertension, STONEY, hyperlipidemia, depression, hypertension, presented to [facility] ED with chief complaints of worsening [...] List clean-up per request of Phys. EHR [facility] COVID-19 2019 Problem List clean-up per request of Phys. EHR [facility] Atrial fibrillation with RVR Problem List clean-up per request of Phys. EHR Cmte Hernia of abdominal wall Problem List clean-up per request of Phys. EHR [facility] Surgical History History of repair of hiatal hernia (~2014) History of left heart catheterization (~03/2024) LHC: LAD 40-50%, diagonal 70%, RCA 40-50%, normal LVEF - 03/2024 History of cholecystectomy 2022 History of colonoscopy 2011 History of cardiac catheterization Problem List clean-up per request of Phys. EHR [facility] H/O eye surgery right eye Problem List clean-up per request of Phys. EHR [facility] History of cataract surgery marybeth eye Problem List clean-up per request of Phys. EHR [facility] History of appendectomy Problem List clean-up per request of Phys. EHR [facility] History of tonsillectomy Problem List clean-up per request of Phys. EHR Cmte H/O foot surgery left Problem List clean-up per request of Phys. EHR [facility] History of hysterectomy Problem List clean-up per request of Phys. EHR [facility] Family History Father Heart & renal disease, hypertensive, with heart fail/chron kidney dis Depression Sister Heart disease Mother Brain tumor Father Mother Social History Smoking Status: Never smoker Substance Use Type: None Substance Abuse Comment: etoh occasional Social History Comments: independent living at the [facility] Medications and Allergies Allergies No Known [...] 01/22/25 20:54 MCH 30.9 pg (24.7-34.3) 01/22/25 20: MCHC 34.6 g/dL (32.0-35.0) 01/22/25 20:54 RDW 14.4 % (11.9-15.3) 01/22/25 20:54 Plt Count 240 x10E3/uL (150-450) 01/22/25 20:54 MPV 8.6 fl (6.3-10.7) 01/22/25 20:54 Neut % (Auto) 70.7 % (.) 01/22/25 20:54 Lymph % (Auto) 17.7 % (.) 01/22/25 20:54 [place] % (Auto) 7.9 % (.) 01/22/25 20:54 Eos % (Auto) 2.5 % (.) 01/22/25 20:54 Baso % (Auto) 1.2 % (.) 01/22/25 20:54 Nucleat RBC Rel Count 0.2 /100 WBC (0-0.5) 01/22/25 20:54 Neut # (Auto) 5.5 x10E3/uL (1.8-7.7) 01/22/25 20:54 Lymph # (Auto) 1.4 x10E3/uL (1.00-4.8) 01/22/25 20:54 [place] # (Auto) 0.6 x10E3/uL (0.0-0.8) 01/22/25 20:54 [...] hypertension, STONEY, hyperlipidemia, depression, hypertension, presented to [facility] ED with chief complaints of worsening [...] 4 Documented By: Ángel Minaya MD 01/22/25 6396 Signed By: <Electronically signed by Ángel Minaay MD> 01/22/25 8992 [facility] Work Phone: 1(435) 365-209106-05-2025 [place] [address] Hospitalist H&P Signed Patient: Austin Golden MR#: [id number] : 1940 Acct:[id number] Age/Sex: 84 / F Adm Date: 5 Loc: ER Room: Type: [facility] ER Attending Dr: Copies to: MD Jazmin Connor DO Thomas D Kramer Jr, MD~ HPI DATE OF EXAMINATION: 01/22/25 CHIEF COMPLAINT: Shortness of breath HISTORY OF PRESENT ILLNESS: This is a 84-year-old female with significant past medical history of atrial fibrillation, CKD, coronary artery disease, anxiety, GERD, pulmonary hypertension, STONEY, hyperlipidemia, depression, hypertension, presented to [facility] ED with chief complaints of worsening [...] List clean-up per request of Phys. EHR [facility] History of cardiac pacemaker in situ Presbyesophagus [...] List clean-up per request of Phys. EHR [facility] Atrial fibrillation with RVR Problem List clean-up per request of Phys. EHR Cmte Hernia of abdominal wall Problem List clean-up per request of Phys. EHR [facility] Surgical History History of repair of hiatal hernia (~2014) History of left heart catheterization (~03/2024) LHC: LAD 40-50%, diagonal 70%, RCA 40-50%, normal LVEF - 03/2024 History of cholecystectomy 2022 History of colonoscopy 2011 History of cardiac catheterization Problem List clean-up per request of Phys. EHR Cmte H/O eye surgery right eye Problem List clean-up per request of Phys. EHR [facility] History of cataract surgery marybeth eye Problem List clean-up per request of Phys. EHR [facility] History of appendectomy Problem List clean-up per [...] at the [facility] Medications and Allergies Allergies No Known [...] mg PO DAILY #30 caps 09/17/24 [Rx Ywlfzdapr76/05/25] duloxetine 30 mg capsule,delayed release 30 mg [...] % (Auto) 17.7 % (.) 01/22/25 20:54 [place] % (Auto) 7.9 % (.) 01/22/25 20:54 Eos % (Auto) 2.5 % (.) 01/22/25 20:54 Baso % (Auto) 1.2 % (.) 01/22/25 20:54 Nucleat RBC Rel Count 0.2 /100 WBC (0-0.5) 01/22/25 20:54 Neut # (Auto) 5.5 x10E3/uL (1.8-7.7) 01/22/25 20:54 Lymph # (Auto) 1.4 x10E3/uL (1.00-4.8) 01/22/25 20:54 [place] # (Auto) 0.6 x10E3/uL (0.0-0.8) 01/22/25 20:54 [...] hypertension, STONEY, hyperlipidemia, depression, hypertension, presented to [facility] ED with chief complaints of worsening [...] Ángel Minaya MD 01/22/252307 Signed By: 01/22/25 2318 [facility]05-23-2025 Evaluation note* Diagnosis Onset Date Resolution [...] fibrillation resol phil January 09, 2025 2:26pm [facility] Work Phone: 1(624) 315-625105-23-2025 Evaluation note* Diagnosis Onset Date Resolution Status [...] response acute January 22, 2 025 10:45pm [facility] Work Phone: 1(134) 337-544905-23-2025 Evaluation note* Diagnosis Onset Date Resolution Status [...] 2025 1:35pm Acute hypoxic respiratory failure ac [place] January 22, 2025 10:45pm ASHD (arteriosclerotic heart disease) acute January 22, 2025 10:45pm Atrial fibrillation with rap id ventricular response acute January 22, 2 025 10:45pm CHF exacerbation acute January 10:45pm Chronic kidney disease acute [place] 2024 10:45pm Diastolic heart failure acute J [facility] 2024 10:45pm Esophageal dysmotility acute 2024 10:45pm Hypercholesterolemia acute January 22, 2025 10:45pm Paroxysmal atrial fibrillati on with rapid ventricular response acute January 22, 2025 10:45pm Persistent atrial fibrillation acute January 22, 2025 10:45pm Sick sinus syndrome acute January 22, 2025 10:45pm [facility] Work Phone: 1(974) 368-909105-20-2025 Evaluation + Plan note* Assessment & Plan Note - Nigel El MD - 01/06/2025 9:26 AM EDTAssociated Problem(s): History of repair of hiatal hernia -discussed risks/benefits of surgery--it is high risk due to her age and revisional nature of it -she will talk to her family and let me know if she'd like to proceed with surgery or just live with it [id number] Miscellaneous Notes* Assessment & Plan Note - Nigel El MD - 01/06/2025 9:26 AM EDTAssociated Problem(s): History of repair of hiatal hernia -discussed risks/benefits of surgery--it is high risk due to her age and revisional nature of it -she will talk to her family and let me know if she'd like to proceed with surgery or just live with it documented in this [id number] History of Present illness Narrative* Nigel El MD - 01/06/2025 9:21 AM EDT Phone numbers Preferred Documentation: Mode: Telephone Patient Patient Work Phone: Patient Cell Preferred phone: [phone] Consent: I confirmed patient understanding of the [...] KATIE YUNG TECHNOLOGISTS NOTE: COMPARISON: None FLUOROSCOPIST: [employer] FLUORO TIME: 7.1 Minutes PROCEDURE: Double contrast air and barium examination of the hypopharynx and esophagus in multiple upright positions and double contrast examination of the esophagus in multiple horizontal positions was performed utilizing fluoroscopic and radiographic techniques. INTRA-PROCEDURE MEDS: Barium Sulfate 60 % 200 mL Route: OralBarium Sulfate 98 % suspension 100 mL Route: OralBarium Sulfate 1 Tab Route: Oral FINDINGS: Mushroom Cutter fluoroscopic spot images of the abdomen: Non-obstructive [...] Nigel El MD, FACS documented in this [id number] History of Present illness Narrative* Nigel El MD - 12/31/2024 8:43 AM EDT This encounter was opened in error. Patient was a No-Show. Please disregard. Called twice, left message to reschedule. Nigel El MD documented in this [id number] Evaluation + Plan note* Assessment & Plan Note - Nigel El MD - 12/30/2024 9:17 AM EDT Associated Problem(s): History of repair of hiatal hernia -Evidence of recurrence on imaging/EGD -discussed non-operative vs operative management, patient elects to [id number] Miscellaneous Notes* Assessment & Plan Note - Nigel El MD - 12/30/2024 9:17 AM EDTAssociated Problem(s): History of repair of hiatal hernia -Evidence of recurrence on imaging/EGD -discussed non-operative vs operative management, patient elects to documented in this [id number] History of Present illness Narrative* Nigel El MD - 12/30/2024 9:13 AM EDT This encounter was opened in error. Patient was a No-Show. Please disregard. Called many times, left message to reschedule. Nigel El MD documented in this [id number] Telephone encounter Note* Telephone Encounter - Domenica Gloria - 12/11/2024 9:38 AM EDT M 12/11 @ 9:30 cancelling appt. Left my number for r/s- SO [id number] Miscellaneous Notes* Telephone Encounter - Domenica Gloria - 12/11/2024 9:38 AM EDT LVM 12/11 @ 9:30 cancelling appt. Left my number for r/s- SO documented in this [id number] Hospital Discharge instructions* Discharge Instructions* Nigel El [...] please contact the endoscopy center Mon-Fri 7:30am-4pm [phone] or after hours [facility] number [phone] Severe abdominal pain that keeps getting worse Fever or any other signs of infection Nausea or vomiting blood Seeing persistent blood coming out of your rectum, with or without stool (some streaks or drops of blood may be expected) For any additional questions, please call the endoscopy center at [phone] Follow-up with your Primary Care Provider CC: Primary Care Provider: No primary care provider on file. * Attachments The following attachments cannot be sent through Care Everywhere. * Upper GI Endoscopy Discharge Instructions ([place]) * Moderate Sedation in Adults Discharge Instructions ([place]) * FALLSPREVENTION documented in this [id number] Miscellaneous Notes* OP Note - Nigel El MD - 12/08/2024 10:29 AM EDT Images from the original note were not included. Austin Golden 84 year old Surgical Contact Serial Number: [id number] Location: ENDO 04 Date: 12/08/2024 TUNNEL MAN: Nigel El MD ATTENDING:Nigel El MD Procedure(s): ESOPHAGOGASTRODUODENOSCOPY WITH ENDOFLIP INSTRUMENT: Scope #[id number] SEDATION: Anesthesia Assisted Pre-Op Diagnosis Codes: * [...] hernia without obstruction or gangrene (Primary Diagnosis) [107494] Hiatal hernia [999830] Gastroesophageal reflux disease without esophagitis [395503] TEE PATH SPECIMEN SENT: no SPECIMEN: None [...] following symptoms, please contact the endoscopy center Sun-Sun 7:30am-4pm [phone] or after hours general [facility] number [phone] Severe abdominal pain that keeps getting worse Fever or any other signs of infection Nausea or vomiting blood Seeing persistent blood coming out of your rectum, with or without stool (some streaks or drops of blood may be expected) For any additional questions, please call the endoscopy center at [phone] Follow-up with your Primary Care Provider CC: [...] were discussed with the patient and/or legal title insurance sales representative. The risks, benefits and alternatives were reviewed. Questions regarding blood transfusions were answered. The patient /or the patient s legal title insurance sales representative agree with the plan for transfusion of blood and/or blood components. documented in this [id number] Surgery Surgical operation note* OP Note - Nigel El MD - 12/08/2024 10:29 AM EDT Images from the original note were not included. Austin Golden 84 year old Surgical Contact Serial Number: [id number] Location: ENDO 04 Date: 12/08/2024 TUNNEL MAN: Nigel El MD ATTENDING:Nigel El MD Procedure(s): ESOPHAGOGASTRODUODENOSCOPY WITH ENDOFLIP INSTRUMENT: Scope #[id number] #[id number] SEDATION: Anesthesia Assisted Pre-Op Diagnosis Codes: * [...] hernia without obstruction or gangrene (Primary Diagnosis) [924828] Hiatal hernia [146461] Gastroesophageal reflux disease without esophagitis [917207] TEE PATH SPECIMEN SENT: no SPECIMEN: None [...] please contact the endoscopy center Mon-Fri 7:30am-4pm [phone] or after hours [facility] number [phone] Severe abdominal pain that keeps getting worse Fever or any other signs of infection Nausea or vomiting blood Seeing persistent blood coming out of your rectum, with or without stool (some streaks or drops of blood may be expected) For any additional questions, please call the endoscopy center at [phone] Follow-up with your Primary Care Provider CC: Primary Care Provider: No primary care provider on file. PERSON COMPLETING NOTE: Nigel El MD 12/08/2024 at 10:41 AM Patient meets criteria for discharge/transfer: Nigel El MD [id number] History and physical note* Checo Sotomayor MD - 12/08/2024 10:08 AM EDT Images from the original note were not included. [facility] GENERAL SURGERY H&P Austin Golden [id number] History (HPI) Austin Golden is a 84 [...] MD at 12/08/2024 10:16 AM EDT [facility] Work Phone: 1(749) 769-662604-21-2025 History and physical note* Checo Sotomayor MD - 12/08/2024 10:08 AM EDT Images from the original note were not included. [facility] GENERAL SURGERY H&P Austin Golden [id number] History (HPI) Austin Golden is a 84 [...] 12/08/2024 10:16 AM EDT documented in this [id number] Progress note* Blood Attestation - Ernesto Parker MD - 12/08/2024 9:57 AM EDT Blood Attestation: ATTESTATION OF INFORMED CONSENT FOR BLOOD: The transfusion of blood and/or blood components were discussed with the patient and/or legal title insurance sales representative. The risks, benefits and alternatives were reviewed. Questions regarding blood transfusions were answered. The patient /or the patient s legal title insurance sales representative agree with the plan for transfusion of blood and/or blood components. [facility] Work Phone: 1(659) 357-596004-08-2025 Telephone encounter Note* Telephone Encounter - Aidee Pyle RN - 11/25/2024 5:56 PM EDT What is the need: Situation: Pt states indigestion/vomiting this week this has been happening every night Background: Most recent visit in Gastroenterology was on 11/13/2024 with Katie Yung MD Assessment: see below Recommendation: Advised I would reach out to Dr. Ynug/gi to see if pt needs a follow [...] your last menstrual period? N/a Protocols used: Koddgcvo-V-GK [id number] Miscellaneous Notes* Telephone Encounter - Aidee Pyle [...] your last menstrual period? N/a Protocols used: Xucadqbp-F-JY * Telephone Encounter - Bonnie Clarke RN [...] Triage Nurse. Thank you! documented in this [id number] Telephone encounter Note* Telephone Encounter - Bonnie Clarke RN - 11/25/2024 4:44 PM EDT What is the need: Situation: returning patients call Background: n/a Assessment: pt unable to provide three identifiers, states she is sick and to call back later. Recommendation: no advise given, RN offered to call 911 for patient, pt declined. Bonnie Clarke RN [id number] Telephone encounter Note* Telephone Encounter - Maria Eugenia Quach - 11/25/2024 4:31 PM EDT Caller: The Pt Symptoms: Pt states that she is not able to keep food down. Patient is requesting a call back from the Triage Nurse. Thank you! [id number] Telephone encounter Note* Telephone Encounter - Bonnie [...] last menstrual period? N/a Protocols used: Swallowing Tihszyplfu-Y-VI [id number] Miscellaneous Notes* Telephone Encounter - Bonnie Clarke [...] last menstrual period? N/a Protocols used: Swallowing Nnhgyegbip-H-IM * Telephone Encounter - Cristiana Vieira - 11/11/2024 4:10 PM EDT Caller warm-transferred to [facility] Nurse for Sx/Buzzword situation of: [...] Telephone Number: Telephone Information: documented in this [id number] Telephone encounter Note* Telephone Encounter - Cristiana Vieira - 11/11/2024 4:10 PM EDT Caller warm-transferred to [facility] Nurse for Sx/Buzzword situation of: [...] coming back Caller's Telephone Number: Telephone Information: [id number] History of Present illness Narrative* Maxwell Medrano MD - 10/23/2024 11:00 AM EST CARDIOLOGY OFFICE VISIT CHIEF COMPLAINT Chief Complaint Patient presents with Follow-up HISTORY OF PRESENT ILLNESS HPI 84-year-old female with a past medical history of hypertension, hyperlipidemia. Patient had a long history of atrial fibrillation for which she started seeing [facility] since 2020 aftershe was hospitalized in [facility] for bradycardia. Adjustment of her medical [...] therapy. Patient is being evaluated recently at [facility] for ablation therapy for atrial fibrillation. [...] She ended in the hospital at [facility]. During this admission she was in atrial flutter. Rates were controlled between 60 to 90 bpm. She underwent cardioversion with successful episcopalian to sinus rhythm for at least a [...] evaluation. She in the mid admitted to [facility] in June 23, 2024 for shortness of breath. She underwent cardioversion July 02 with successful episcopalian of sinus rhythm. Patient states that after cardioversion she did not notice any difference in her shortness of breath. She went home and then her symptoms got exacerbated and she ended up back at [facility] the beginning of July 2024 with [...] She apparently saw a GI service from [facility]. They were planning to do a procedure but because of her symptoms improved she put her procedure on hold. For the last few days she started noticing again problems swallowing. Patient had a device interrogation today. She does have a [employer] medical dual-chamber pacemakerMedtronic with battery longevity 6 years 6 months. [employer] of atrial fibrillation 44% of the time. 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 She does not recall having [...] Medrano MD. documented in this [facility] Work Phone: 1(461) 373-755203-06-2025 Instructions* Patient Instructions* Jenna Cheng MA - 10/23/2024 11:00 AM EST PVI ABLATION TO BE DONE BY DR. MEDRANO. PATIENT TO HAVE A CT ANGIO ANYTIME PRIOR TO PROCEDURE. VIRA TO BE DONE THE DAY BEFORE. TAKE ALL MEDICATIONS as USUAL. LABS TO BE DONE 1 WEEK PRIOR. documented in this [facility] Work Phone: 1(503) 999-927501-24-2025 Radiology Diagnostic [facility] Main [place] [address] [place] [address] CT Scan Report Signed Patient: Austin Golden MR#: [id number] : 1940 Acct:[id number] Age/Sex: 83 / F ADM Date: 5 Loc: ER Room: Type: [facility] ER Attending Dr: Copies to: [...] Thomas Haskins M.D.09/12/2024 12:37 PM Dictation Location: [facility]- Transcribed By: JODI 09/12/24 1237 Dictated By: Thomas Haskins II, MD 09/12/24 1233 Signed By: 09/12/24 1237 [facility] Work Phone: 1(771) 697-772001-17-2025 History of Present illness Narrative* Debbie Mac [...] exam, discussion and plan. [facility] Work Phone: 1(361) 305-239201-17-2025 Instructions* Patient Instructions* Maggy Vee LPN - [...] routine Pft 6 months [facility] Work Phone: 1(808) 241-909412-30-2024 History of Present illness Narrative* Katie Yung MD - 08/18/2024 5:01 PM EST Documentation: Mode: Telephone Patient Patient Work Phone: Patient Cell Preferred phone: [phone] Consent: I confirmed patient understanding of the [...] Yung MD Division of Gastroenterology & Hepatology [facility] 08/18/24, 5:01 PM documented in this [id number] History of Present illness Narrative* Katie Yung MD - 07/29/2024 11:34 AM EST This encounter was opened in error. Patient was a No-Show (she was admitted to hospital at time of this appt). Please disregard. documented in this [id number] History of Present illness Narrative* Maxwell Medrano MD - 07/28/2024 11:30 AM EST CARDIOLOGY OFFICE VISIT CHIEF COMPLAINT Chief Complaint Patient presents with Follow-up HISTORY OF PRESENT ILLNESS HPI 83-year-old female with a past medical history of hypertension, hyperlipidemia. Patient had a long history of atrial fibrillation for which she started seeing [facility] since 2020 aftershe was hospitalized in [facility] for bradycardia. Adjustment of her medical [...] therapy. Patient is being evaluated recently at [facility] for ablation therapy for atrial fibrillation. [...] She ended in the hospital at [facility]. During this admission she was in atrial flutter. Rates were controlled between 60 to 90 bpm. She underwent cardioversion with successful episcopalian to sinus rhythm for at least a [...] evaluation. She in the mid admitted to [facility] in June 23, 2024 for shortness of breath. She underwent cardioversion July 02 with successful episcopalian of sinus rhythm. Patient states that after cardioversion she did not notice any difference in her shortness of breath. She went home and then her symptoms got exacerbated and she ended up back at [facility] the beginning of July 2024 with [...] that the patient has a [employer] caregivers non medical and her current rhythmis atrial tachycardia with [...] of Martín Medrano MD. documented [facility] Work Phone: 1(271) 605-326012-09-2024 Instructions* Patient Instructions* Raysa Fermin MA - 07/28/2024 11:30 AM EST PLEASE BRING ALL MEDICATION BOTTLES TO OFFICE VISITS. CALL THE OFFICE WITH MEDICATION BOTTLES TO DISCUSS AND UPDATE MEDICATION LIST. CALL [phone] OPTION #4. documented in this [facility] Work Phone: 1(798) 238-634212-02-2024 Telephone encounter Note* Telephone Encounter - Stephen Simpson RN - 07/21/2024 12:45 PM EST Situation: Call transfer from [facility] with breathing issues. Attempt to help with EMS but difficulties. Call to EMS but told unable to send and unable to conference call. Patient disconnected. Attempt to call but no answer. Call to [facility] EMS managed by [facility] whom is contracted via [facility]. Patient lives in independent living managed by [facility]. [facility] will call to have her checked out. Patient needs to get life alert. Background: See above. Cardiology with . Assessment: Message to Dr. Yung. [facility] Recommendation: [id number] Miscellaneous Notes* Telephone Encounter - Stephen Simpson RN - 07/21/2024 12:45 PM EST Situation: Call transfer from [facility] with breathing issues. Attempt to help with EMS but difficulties. Call to EMS but told unable to send and unable to conference call. Patient disconnected. Attempt to call but no answer. Call to [facility] EMS managed by [facility] whom is contracted via hospital. Patient lives in independent living managed by [facility]. Kwasi gil will call to have her [...] sure which it is). documented in this [id number] Telephone encounter Note* Telephone Encounter - Maria Eugenia Quach - 07/21/2024 12:39 PM EST Caller transferred to nurse for sx of: Shortness of Breath, Abdominal or Chest Pain, (Patient is not sure which it is). [id number] Evaluation note* Diagnosis Onset Date Resolution Status Admit Date GERD (gastroesophageal reflu x disease) acute July 09 024 2:54pm Primary hypertension acute Nove mb2023 2:54pm Chronic heart failure with preserved ejection fraction (HFpEF) resolved July 09 024 2:54pm Paroxysmal atrial fibrillation resolved July 09 024 2:54pm Esophageal obstruction inactive No vember [...] 31 11:23am Esophageal obstruction inactive De cember 2023 11:23am Stage 3a chronic kidney disease [...] 09, 2024 3:04pm Primary hypertension acute Gonzalez 2024 3:04pm Rectal bleeding acute August 212024 3:04pm [facility] Work Phone: 1([phone]) 903-823211-13-2024 Progress note Author W Luiz [facility] Note Date/Time July 02, 2024 3:59pm [facility] [address] [place] [address] Cardiology Progress Note Signed Patient: Austin Golden MR#: [id number] : 1940 Acct:[id number] Age/Sex: 83 / F Adm Date: 4 Loc: Room: [address] [place] [address] Type: ADM IN Attending Dr: Shilpa Fenotn MD Copies to: ~ Date of Service: [...] catheterization performed earlier this year at [facility] revealing mild coronary disease and normal left [...] % (Auto) 72.9 Lymph % (Auto) 19.1 [place] % (Auto) 4.8 Eos % (Auto) 1.9 Baso % (Auto) 1.3 Nucleat RBC Rel Count 0.2 Neut # (Auto) 6.7 Lymph # (Auto) 1.7 [place] # (Auto) 0.4 Eos # (Auto) 0.2 [...] risk medication use: Code(s): Z79.899 - 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 therapy (3) Chronic heart failure [...] signed by Javed Dee DO> 07/02/24 1559 [facility] Work Phone: 1(433) 292-818811-13-[address] [address] Cardiology Progress Note Signed Patient: Austin Golden MR#: [id number] : 1940 Acct:[id number] Age/Sex: 83 / F Adm Date: 4 Loc: Room: [address] [place] [address] Type: ADM IN Attending Dr: Shilpa Fenton [...] catheterization performed earlier this year at [facility] revealing mild coronary disease and normal left [...] % (Auto) 72.9 Lymph % (Auto) 19.1 [place] % (Auto) 4.8 Eos % (Auto) 1.9 Baso % (Auto) 1.3 Nucleat RBC Rel Count 0.2 Neut # (Auto) 6.7 Lymph # (Auto) 1.7 [place] # (Auto) 0.4 Eos # (Auto) 0.2 [...] risk medication use: Code(s): Z79.899 - 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 therapy (3) Chronic heart failure with preserved ejection fraction (HFpEF): Code(s): I50.32 - Chronic diastolic (congestive) heart failure (4) Paroxysmal atrial fibrillation: Code(s): I48.0 - Paroxysmal atrial fibrillation Plan Escalate amiodarone to 400 daily Proceed with elective cardioversion tomorrow No evidence of chest pain (mild coronary disease on March 2024 heart catheterization), with normalLV function Documented By: Javed Dee DO 07/02/24 155 Signed By: 07/02/24 1559 [facility]11-13-2024 Progress note Author Shilpa Fenton [facility] Note Date/Time July 02, 2024 1:06pm [facility] [address] [place] [address] Hospitalist Progress Note Signed Patient: Austin Golden MR#: [id number] : 1940 Acct:[id number] Age/Sex: 83 / F Adm Date: 4 Loc: Room: [address] [place] [address] Type: ADM IN Attending Dr: Shilpa Fenton [...] Laboratory work up and Imaging studies reviewed gambling monitor - reviewed, remains in atrial fibrillation but [...] signed by Shilpa Fenton MD> 07/02/24 1306 [facility] Work Phone: 1(157) 278-821811-13-2024 [place] [id number] Hospitalist Progress Note Signed Patient: Austin Golden MR#: [id number] : 1940 Acct:[id number] Age/Sex: 83 / F Adm Date: 4 Loc: Room: [address] [place] [address] Type: ADM IN Attending Dr: Shilpa Fenton [...] Laboratory work up and Imaging studies reviewed gambling monitor - reviewed, remains in atrial fibrillation but [...] MD 07/02/24 1303 Signed By: 07/02/24 1306 [facility]11-13-2024 [place] [address] Cardiology Procedure Note Signed Patient: Austin Golden MR#: [id number] : 1940 Acct:[id number] Age/Sex: 83 / F Adm Date: 4 Loc: Room: [address] [place] [address] Type: ADM IN Attending Dr: Shilpa Fenton MD Copies to: DO Jimena Carias MD, FACC Shilpa Fenton MD~ Cardiology Procedures DATE/PROVIDER Date: 07/02/2024 Jimena Smith MD CARDIOVERSION ASA Classification: 2 Mallampati Score: Class II Pre-Operative Diagnosis: Atrial Fibrillation Post-Operative Diagnosis: Jew of sinus rhythm Procedure Description: After obtaining [...] 60 bpm. Documented By: Jimena Smith MD, [facility] 911 Signed By: 07/02/24 0914 [facility]11-12-2024 Progress note Author Shilpa Fenton [facility] Note Date/Time July 01, 2024 3:17pm [facility] [address] [place] [address] Hospitalist Progress Note Signed Patient: Austin Golden MR#: [id number] : 1940 Acct:[id number] Age/Sex: 83 / F Adm Date: 4 Loc: Room: [address] [place] [address] Type: ADM IN Attending Dr: Shilpa Fenton [...] Laboratory work up and Imaging studies reviewed gambling monitor - reviewed, remains in atrial fibrillation but [...] stable Documented By: Shilpa Fenton MD 07/01/24 457 Signed By: <Electronically signed by Shilpa Fenton MD> 07/01/24 6105 [facility] Work Phone: 1(154) 510-210511-12-2024 [place] [address] Hospitalist Progress Note Signed Patient: Austin Golden MR#: [id number] : 1940 Acct:[id number] Age/Sex: 83 / F Adm Date: 4 Loc: 3T Room: [address] [place] [address] Type: ADM IN Attending Dr: Shilpa Fenton [...] Laboratory work up and Imaging studies reviewed gambling monitor - reviewed, remains in atrial fibrillation but [...] Fenton MD 07/01/241514 Signed By: 07/01/24 1517 [facility]11-12-2024 Consult note Author W Luiz [facility] Note Date/Time July 01, 2024 11:50am [facility] [address] [place] [address] Cardiology Consult Note Signed Patient: Austin Golden MR#: [id number] : 1940 Acct:[id number] Age/Sex: 83 / F Adm Date: 4 Loc: Room: [address] [place] [address] Type: ADM IN Attending Dr: Shilpa Fenton [...] exertional dyspnea. She declines chest discomfort to mo. Troponins are mildly elevated, initially at 101 and 85, and currently 92 (notably, she has chronic troponin elevation upon review of her EMR). Renal function is normal. Patient had recent heart catheterization performed earlier this year at [facility] revealing mild coronary disease and normal left [...] (Updated 07/01/24 @ 11:49 by Javed Dee, DO) Dyspnea on exertion Problem List clean-up per request of Phys. EHR [facility] Anxiety High risk medication use Esophageal dysmotility [...] List clean-up per request of Phys. EHR [facility] History of cardiac pacemaker in situ Presbyesophagus Hiatal hernia Restless leg Hyperlipemia Problem List clean-up per request of Phys. EHR Cmte CHF (congestive heart failure) Problem List clean-up per request of Phys. EHR [facility] Kidney stones removal of kidney stone R flank in 2021 Problem List clean-up per request of Phys. EHR [facility] Pacemaker Problem List clean-up per request of Phys. EHR Cmte Atrial fibrillation, persistent Problem List clean-up per request of Phys. EHR [facility] COVID-19 2019 Problem List clean-up per request of Phys. EHR [facility] Atrial fibrillation with RVR Problem List clean-up per request of Phys. EHR [facility] Hernia of abdominal wall Problem List clean-up [...] at the [facility] Medications and Allergies Allergies No Known [...] Lymph # (Auto) 1.4 1.4 (1.00-4.8) x10E3/uL [place] # (Auto) 0.6 0.5 (0.0-0.8) x10E3/uL Eos [...] risk medication use: Code(s): Z79.899 - 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 therapy (3) Chronic heart failure [...] signed by Javed Dee DO> 07/01/24 1150 [facility] Work Phone: 1(620) 772-315411-12-2024 [place] [address] Cardiology Consult Note Signed Patient: Austin Golden MR#: [id number] : 1940 Acct:[id number] Age/Sex: 83 / F Adm Date: 4 Loc: Room: [address] [place] [address] Type: ADM IN Attending Dr: Shilpa Fenton [...] heart catheterization performed earlier this year at [facility]? revealing mild coronary disease and normal left [...] List clean-up per request of Phys. EHR [facility] Anxiety High risk medication use Esophageal dysmotility [...] List clean-up per request of Phys. EHR [facility] Arthritis back and neck Problem List clean-up per request of Phys. EHR [facility] Hypertension Problem List clean-up per request of Phys. EHR [facility] History of cardiac pacemaker in situ Presbyesophagus Hiatal hernia Restless leg Hyperlipemia Problem List clean-up per request of Phys. EHR [facility] CHF (congestive heart failure) Problem List clean-up per request of Phys. EHR [facility] Kidney stones removal of kidney stone R [...] List clean-up per request of Phys. EHR [facility] Surgical History History of repair of hiatal [...] List clean-up per request of Phys. EHR [facility] History of hysterectomy Problem List clean-up per request of Phys. EHR [facility] Family History Father Heart & renal disease, hypertensive, with heart fail/chron kidney dis Depression Sister Heart disease Mother Brain tumor Father Mother Social History Smoking Status: Never smoker Substance Use Type: None Substance Abuse Comment: etoh occasional Social History Comments: independent living [facility] Medications and Allergies Allergies No Known [...] mg PO DAILY #30 caps 04/01/24 [Rx Uqyglngsg27/11/24] multivitamin 1 tab PO DAILY 04/01/24 [History [...] Lymph # (Auto) 1.4 1.4 (1.00-4.8) x10E3/uL [place] # (Auto) 0.6 0.5 (0.0-0.8) x10E3/uL Eos [...] risk medication use: Code(s): Z79.899 - 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 therapy (3) Chronic heart failure [...] DO 07/01/24 1138 Signed By: 07/01/24 1150 [facility]11-11-2024 History and physical note Author Shilpa Fenton [facility] Note Date/Time June 30, 2024 7:23pm [facility] [address] [place] [address] Hospitalist H&P Signed Patient: Austin Golden MR#: [id number] : 1940 Acct:[id number] Age/Sex: 83 / F Adm Date: 4 Loc: 3T Room: [address] [place] [address] Type: ADM IN Attending Dr: Shilpa Fenton [...] List clean-up per request of Phys. EHR [facility] Fibromyalgia Problem List clean-up per request of Phys. EHR Cmte Arthritis back and neck Problem List clean-up per request of Phys. EHR Cmte Hypertension Problem List clean-up per request of Phys. EHR [facility] History of cardiac pacemaker in situ Presbyesophagus Hiatal hernia Restless leg Hyperlipemia Problem List clean-up per request of Phys. EHR Cmte CHF (congestive heart failure) Problem List clean-up per request of Phys. EHR Cmte Kidney stones removal of kidney stone R flank in 2021 Problem List clean-up per request of Phys. EHR [facility] Pacemaker Problem List clean-up per request of Phys. EHR Cmte Atrial fibrillation, persistent Problem List clean-up per request of Phys. EHR [facility] COVID-19 2019 Problem List clean-up per request of Phys. EHR [facility] Atrial fibrillation with RVR Problem List clean-up per request of Phys. EHR [facility] Hernia of abdominal wall Problem List clean-up per request of Phys. EHR [facility] Surgical History History of repair of hiatal hernia (~2014) History of left heart catheterization (~03/2024) LHC: LAD 40-50%, diagonal 70%, RCA 40-50%, normal LVEF - 03/2024 History of cholecystectomy 2022 History of colonoscopy 2011 History of cardiac catheterization Problem List clean-up per request of Phys. EHR [facility] H/O eye surgery right eye Problem List clean-up per request of Phys. EHR [facility] History of cataract surgery marybeth eye Problem List clean-up per request of Phys. EHR [facility] History of appendectomy Problem List clean-up per request of Phys. EHR [facility] History of tonsillectomy Problem List clean-up per request of Phys. EHR [facility] H/O foot surgery left Problem List clean-up per request of Phys. EHR Cmte History of hysterectomy Problem List clean-up per request of Phys. EHR [facility] Family History Father Heart & renal disease, hypertensive, with heart fail/chron kidney dis Depression Sister Heart disease Mother Brain tumor Father Mother Social History Smoking Status: Never smoker Substance Use Type: None Substance Abuse Comment: etoh occasional Social History Comments: independent living at the [facility] Medications and Allergies Allergies No Known [...] % (Auto) 14.0 % (.) 06/30/24 15:04 [place] % (Auto) 5.9 % (.) 06/30/24 15:04 Eos % (Auto) 1.5 % (.) 06/30/24 15:04 Baso % (Auto) 0.8 % (.) 06/30/24 15:04 Nucleat RBC Rel Count 0.1 /100 WBC (0-0.5) 06/30/24 15:04 Neut # (Auto) 8.1 x10E3/uL (1.8-7.7) H 06/30/24 15:04 Lymph # (Auto) 1.4 x10E3/uL (1.00-4.8) 06/30/24 15:04 [place] # (Auto) 0.6 x10E3/uL (0.0-0.8) 06/30/24 15:04 [...] <Electronically signed by Shilpa Fenton MD> 06/30/241922 [facility] Work Phone: 1(541) 596-210511-11-2024 Evaluation note* Diagnosis Onset Date Resolution Status [...] 31 024 11:23am Primary hypertension acute Dece 2023 [...] wall contusion acute Gonzalez abdoul 2024 2:04pm [facility] Work Phone: 1(376) 500-166811-11-2024 Evaluation note* Diagnosis Onset Date Resolution Status [...] July 09 024 2:54pm Primary hypertension acute Nov2023 2:54pm Chronic heart failure with preserved ejection fraction (HFpEF) resolved July 09 024 2:54pm Paroxysmal atrial fibrillation resol phil July 09, 2024 2:54pm Esophageal obstruction inactive No vem2023 2:54pm Stage 3a chronic kidney disease steven [...] 11:23am Esophageal obstruction inactive De 2023 11:23am Stage 3a chronic kidney disease [...] 09, 2024 3:04pm Primary hypertension acute Gonzalez 2024 3:04pm Rectal bleeding acute August 212024 3:04pm [facility] Work Phone: 1(392) 256-809611-11-2024 History and physical [place] [id number] Hospitalist H&P Signed Patient: Austin Golden MR#: [id number] : 1940 Acct:[id number] Age/Sex: 83 / F Adm Date: 4 Loc: Room: [address] [place] [address] Type: ADM IN Attending Dr: Shilpa Fenton [...] at the [facility] Medications and Allergies Allergies No Known [...] mg PO DAILY #30 caps 04/01/24 [Rx Arcrodeyk39/11/24] multivitamin 1 tab PO DAILY 04/01/24 [History [...] % (Auto) 14.0 % (.) 06/30/24 15:04 [place] % (Auto) 5.9 % (.) 06/30/24 15:04 Eos % (Auto) 1.5 % (.) 06/30/24 15:04 Baso % (Auto) 0.8 % (.) 06/30/24 15:04 Nucleat RBC Rel Count 0.1 /100 WBC (0-0.5) 06/30/24 15:04 Neut # (Auto) 8.1 x10E3/uL (1.8-7.7) H 06/30/24 15:04 Lymph # (Auto) 1.4 x10E3/uL (1.00-4.8) 06/30/24 15:04 [place] # (Auto) 0.6 x10E3/uL (0.0-0.8) 06/30/24 15:04 [...] days): 3 Documented By: Shilpa Fenton MD 06/30/241832 Signed By: 06/30/241922 [facility]11-11-2024 Radiology Diagnostic study note [facility] [place] [address] CT Scan Report Signed Patient: Austin Golden MR#: [id number] : 1940 Acct:[id number] Age/Sex: 83 / F ADM Date: 4 Loc: ER Room: Type: [facility] ER Attending Dr: Copies to: [...] Juanito Borja M.D.06/30/2024 3:47 PM Dictation Location: [place] [address] Transcribed By: [facility] 06/30/24 1547 Dictated By: Juanito Borja DO 06/30/24 1542 Signed By: 06/30/24 1547 [facility]11-04-2024 NoteCalled radiology ext [phone]. Requested soemone in the department to reach out to the patient to discuss what is expected prior to and in the procedure for timed barium esophogram. Staffing took the number and agreed to abhinav the patient.[employer] [id number] Telephone encounter Note* Telephone Encounter - Isabel Menard RN - 06/23/2024 11:23 AM EST Called radiology ext [phone]. Requested soemone in the department to reach out to the patient to discuss what is expected prior to and in the procedure for timed barium esophogram. Staffing took the number and agreed to abhinav the patient. [id number] Miscellaneous Notes* Telephone Encounter - Isabel Menard RN - 06/23/2024 11:23 AM EST Called radiology ext [phone]. Requested soemone in the department to reach [...] placed for timed barium esophagogram Jazmin العلي [address] [place] [address] option #[address] العلي's nurse [...] be scheduled. Thank you documented in this [id number] NotePt has questions about her upcoming procedure 06/26/2024 Would like to discuss with provider Telephone Information: [facility] [id number] Telephone encounter Note* Telephone Encounter - Cristiana Vieira - 06/23/2024 10:19 AM EST Pt has questions about her upcoming procedure 06/26/2024 Would like to discuss with provider Telephone Information: [id number] Telephone encounter Note* Telephone Encounter - Cristiana Vieira - 06/13/2024 4:[address] العلي office calling waiting for order to be placed for timed barium esophagogram Jazmin العلي [address] [place] [address] option #[address] العلي's nurse line Leela Encounter dated 05/29/[address] Yung Recommendations: Obtain timed barium esophagram or endoflip to confirm diagnosis. Dr Yung recommended pt has this procedure Telephone Information: [id number] NoteDrMelita العلي's office call regarding results from patient's procedure on 05/29/24.. Dr. العلي states recommendations as follows: Obtain timed barium esophagram or endoflip to confirm diagnosis, would like order to be placed so that patient may have this done. Please call patient once order is placed to be scheduled. Thank Rede [facility] [id number] Telephone encounter Note* Telephone Encounter - Evelyn [...] is placed to be scheduled. Thank you [id number] Evaluation note* Diagnosis Onset Date Resolution Status [...] vember 2023 2:54pm Acute kidney injury inactive Dece2023 9:28pm Atrial fibrillation with rap id ventricular response inactive July 9:28pm Atypical chest pain inactive Dece2023 9:28pm Dysphagia inactive July 21, 2024 9:28pm Elevated troponin inactive Decemb r 2023 9:28pm Esophageal obstruction inactive De [...] 11:23am Esophageal obstruction inactive De cem2023 11:23am [facility] Work Phone: 1(180) 222-534010-22-2024 Evaluation note* Diagnosis Onset Date Resolution Status [...] wall contusion acute Gonzalez abdoul 2024 2:04pm [facility] Work Phone: 1(358) 236-879610-22-2024 Evaluation note* Diagnosis Onset Date Resolution Status [...] acute Stage 3a chronic kidney disease acute [facility] Work Phone: 1(208) 369-366910-17-2024 History of Present illness Narrative* Maxwell Medrano MD - 06/05/2024 12:00 PM EDT CARDIOLOGY OFFICE VISIT CHIEF COMPLAINT Chief Complaint Patient presents with Follow-up HISTORY OF PRESENT ILLNESS HPI 83-year-old female with a past medical history of hypertension, hyperlipidemia. Patient had a long history of atrial fibrillation for which she started seeing [facility] since 2020 aftershe was hospitalized in [facility] for bradycardia. Adjustment of her medical [...] therapy. Patient is being evaluated recently at [facility] for ablation therapy for atrial fibrillation. [...] She ended in the hospital at [facility]. During this admission she was in atrial flutter. Rates were controlled between 60 to 90 bpm. She underwent cardioversion with successful episcopalian to sinus rhythm for at least a [...] GI service with upper GI scope at [facility] whofound his scope difficult to [...] Medrano MD. documented in this [facility] Work Phone: 1([phone]) 744-223610-17-2024 Instructions* Patient Instructions* Nesha Wilson LPN - 06/05/2024 12:[address] Medrano wants pt to see Katie Yung MD [facility] for Gastrointestinal for weakness, vomiting and unable to eat. [employer] to help schedule. If you continue not to feel good going into the weekend and you are short of breath and not feelingwell go to [facility]. Dr. Medrano is oim consultant this weekend. He said if you do go to [facility] to call [phone] and speak with our on-call team and tell them to notify Dr. Medrano you are going to hospital so he can see you. DID YOU KNOW We have a pharmacy here in the [facility]. They can fill all prescriptions, not just [...] your Pharmacy of choice. Pharmacy phone # [phone]. Please bring all medicines, vitamins, and herbal supplements with you in original bottles to every appointment!!!! Prescriptions will not be filled unless you are compliant with your follow up appointments or have a follow up appointment scheduled as per instruction of your physician. Refills should be requested at the time of your visit. documented in this [facility] Work Phone: 1(744) 981-562210-10-2024 Hospital Discharge instructions* Discharge Instructions* Kaylah Ledesma [...] PCP. 3. F/u with Amna Powell at [facility] * Attachments The following attachments cannot be sent through Care Everywhere. * Upper GI Endoscopy Discharge Instructions ([place]i) * Esophageal Manometry ([place]) * Moderate Sedation in Adults Discharge Instructions ([place]) * FALLSPREVENTION documented in this [id number] Surgery Surgical operation note* OP Note - [...] undergo sedation with the assistance of anesthesia physician/LIQUID CENTER ASSEMBLER team. Please see corresponding note for full details. Katie Yung MD 05/29/24 1:08 PM Austin Golden 83 year old Surgical Contact Serial Number: [id number] Location: ENDO 02 Date: 05/29/2024 TUNNEL MAN: Katie Yung MD ATTENDING:Katie Yung MD Procedure(s): [...] 50cm. Taped to right cheek. Esophageal dysphagia [[id number]] TEE PATH SPECIMEN SENT: no SPECIMEN: None [...] PCP. 3. F/u with Amna Powell at [facility] CC: Primary Care Provider: No primary care provider on file. PERSON COMPLETING NOTE: Katie Yung MD 05/29/2024 at 1:08 PM Patient meets criteria for discharge/transfer: Katie Yung MD [id number] Miscellaneous Notes* OP Note - Katie Yung [...] undergo sedation with the assistance of anesthesia physician/LIQUID CENTER ASSEMBLER team. Please see corresponding note for full details. Katie Yung MD 05/29/24 1:08 PM Austin Golden 83 year old Surgical Contact Serial Number: [id number] Location: ENDO 02 Date: 05/29/2024 TUNNEL MAN: Katie Yung MD ATTENDING:Katie Yung MD Procedure(s): [...] 50cm. Taped to right cheek. Esophageal dysphagia [[id number]] TEE PATH SPECIMEN SENT: no SPECIMEN: None [...] PCP. 3. F/u with Amna Powell at [facility] CC: Primary Care Provider: No primary care provider on file. PERSON COMPLETING NOTE: Katie Yung MD 05/29/2024 at 1:08 PM Patient meets criteria for discharge/transfer: Katie Yung MD documented in this [id number] Evaluation note* Diagnosis Onset Date Resolution Status [...] acute Cirrhosis acute GERD (gastroesophageal reflux disease) [facility] Work Phone: 1(553) 218-507709-26-2024 NoteGI Motility Lab Note Pre-procedure: Patient verified [...] and Signs of infection such as feverThe [facility] Hospital[facility] [id number] Evaluation note* Diagnosis Onset Date Resolution Status [...] GERD (gastroesophageal reflux disease) acute Vomiting acute [facility] Work Phone: 1([phone]) 764-790809-09-2024 History of Present illness Narrative* Maxwell Medrano MD - 04/28/2024 11:30 AM EDT CARDIOLOGY OFFICE VISIT CHIEF COMPLAINT Chief Complaint Patient presents with Follow-up 2 WEEK HISTORY OF PRESENT ILLNESS HPI 83-year-old female with a past medical history of hypertension, hyperlipidemia. Patient had a long history of atrial fibrillation for which she started seeing [facility] since 2020 aftershe was hospitalized in [facility] for bradycardia. Adjustment of her medical [...] therapy. Patient is being evaluated recently at [facility] for ablation therapy for atrial fibrillation. [...] She ended in the hospital at [facility]. During this admission she was in atrial flutter. Rates were controlled between 60 to 90 bpm. She underwent cardioversion with successful episcopalian to sinus rhythm for at least a [...] Sen medical with battery longevity 6.3 years. [employer] of atrial fibrillation 58% of the time [...] of Martín Medrano MD. [facility] Work Phone: 1([phone]) 856-634809-09-2024 Instructions* Patient Instructions* Nesha Wilson LPN - 04/28/2024 11:30 AM EDT Increase Amiodarone to 200 mg twice daily x 1 week,then decrease to 1 tablet daily thereafter. DID YOU KNOW We have a pharmacy here in the [facility]. They can fill all prescriptions, not just [...] your Pharmacy of choice. Pharmacy phone # [phone]. Please bring all medicines, vitamins, and herbal supplements with you in original bottles to every appointment!!!! Prescriptions will not be filled unless you are compliant with your follow up appointments or have a follow up appointment scheduled as per instruction of your physician. Refills should be requested at the time of your visit. documented in this [facility] Work Phone: 1([phone]) 594-935309-05-2024 History of Present illness Narrative* Debbie Mac MD - 04/24/2024 3:10 PM EDT Steve Golden is a 83 y.o. female Chief [...] signing my name below, I, Maggy Lerma LPN , Anatoly attest that this documentation [...] exam, discussion and plan. documented in this encounterSum[facility] Work Phone: [phone]) [phone] Instructions* Patient Instructions* Maggy Vee LPN - [...] take amio 2 weeks documented in this encounterSum[facility] Work Phone: 1([phone]) 884-599108-30-2024 Evaluation note* Diagnosis Onset Date Resolution Status Admit Date Dyspepsia acute April 18, 2 024 10:03am GERD (gastroesophageal reflu x disease) acute April 18 10:03am Vomiting acute April 18 2 024 10:03am Acute on chronic heart [...] preserved ejection fraction (HFpEF) acute June 30, 024 5:45pm Elevated troponin acute 2023 5:45pm [...] July 09, 2024 2:54pm Primary hypertension acute 2023 2:54pm Stage 3a chronic kidney disease acut e July 09, 2024 2:54pm [facility] Work Phone: 1([phone]) 792-892308-30-2024 Evaluation note* Diagnosis Onset Date Resolution Status [...] GERD (gastroesophageal reflux disease) acute Vomiting acute [facility] Work Phone: 1([phone]) 518-429408-29-2024 History of Present illness Narrative* Maxwell Medrano MD - 04/17/2024 10:15 AM EDT CARDIOLOGY OFFICE VISIT CHIEF COMPLAINT Chief Complaint Patient presents with Hospital Follow-up CARDIOVERSION 03/25/24 HISTORY OF PRESENT ILLNESS HPI 83-year-old female with a past medical history of hypertension, hyperlipidemia. Patient had a long history of atrial fibrillation for which she started seeing [facility] since 2020 aftershe was hospitalized in [facility] for bradycardia. Adjustment of her medical [...] therapy. Patient is being evaluated recently at [facility] for ablation therapy for atrial fibrillation. [...] for which she started seeing [facility] since 2020 aftershe was hospitalized in [facility] for bradycardia. Adjustment of her medical [...] therapy. Patient is being evaluated recently at [facility] for ablation therapy for atrial fibrillation. [...] She ended in the hospital at [facility]. During this admission she was in atrial flutter. Rates were controlled between 60 to 90 bpm. She underwent cardioversion with successful episcopalian to sinus rhythm for at least a [...] maintaining sinus rhythm during recent admission at [facility] for almost a day and a [...] to prepare this document. documented in this encounterSum[facility] Work Phone: [phone]) 916-484608-29-2024 Instructions* Patient Instructions* Raysa Fermin MA - 04/17/2024 10:15 AM EDT TAKE SOTALOL UINTIL SUNDAY. NO SOTALOL ON SUNDAY AND SUNDAY START AMIODARONE 200 MG ON SUNDAY- TAKE 1 TABLET TWICE DAILY FOR ONE WEEK. THEN TAKE 1 TABLET THEREAFTER. HAVE LABS DONE BEFORE NEXT OFFICE VISIT (NON FASTING) documented in this encounterSumma [facility] Work Phone: [phone]) [phone] Evaluation note* Diagnosis Onset Date Resolution Status Admit Date Acute on chronic heart failu re with preserved ejection fraction (HFpEF) acute April 08 3:40pm GERD (gastroesophageal reflu x disease) acute April 08 3:40pm Paroxysmal atrial fibrillation acute April 08, 2024 3:40pm Primary hypertension acute Aug2023 3:40pm Stage 3a chronic kidney disease acut [...] June 30, 2024 5:45pm Elevated troponin acute 2023 5:45pm [facility] Work Phone: 1([phone]) 390-629708-20-2024 Evaluation note* Diagnosis Onset Date Resolution Status Admit Date Acute on chronic heart failu re with preserved ejection fraction (HFpEF) acute April 08 3:40pm GERD (gastroesophageal reflu x disease) acute April 08 3:40pm Paroxysmal atrial fibrillation acute April 08, 2024 3:40pm Primary hypertension acute Aug2023 3:40pm Stage 3a chronic kidney disease acut [...] 08, 2024 11:45am Primary hypertension acute Apr emb2023 11:45am Stage 3a chronic kidney disease [...] 30, 2 024 5:45pm Elevated troponin acute 2023 5:45pm High risk medication use acute June 30, 2024 5:45pm Paroxysmal atrial fibrillation acute June 30, 2024 5:45pm [facility] Work Phone: 1([phone]) [phone] History of Present illness Narrative* Maxwell Medrano MD - 02/28/2024 11:15 AM EDT CARDIOLOGY OFFICE VISIT CHIEF COMPLAINT Chief Complaint Patient presents with Follow-up HISTORY OF PRESENT ILLNESS HPI 83-year-old female with a past medical history of hypertension, hyperlipidemia. Patient had a long history of atrial fibrillation for which she started seeing [facility] since 2020 aftershe was hospitalized in [facility] for bradycardia. Adjustment of her medical [...] therapy. Patient is being evaluated recently at [facility] for ablation therapy for atrial fibrillation. [...] be delivered with unsuccessful termination of thisarrhythmia. [employer] of atrial fibrillation approximately 76% of the [...] furosemide (LASIX) 20 mg, oral, Daily HYDROcodone-acetaminophen ([place]) 10-325 mg tablet 1 tablet, oral, Daily [...] of Martín Medrano MD. documented in this encounterSum[facility] Work Phone: 1([phone]) 192-804707-11-2024 Instructions* Patient Instructions* Nesha Wilson LPN - [...] time of your visit. documented in this encounterSumma [facility] Work Phone: 1([phone]) 127-843207-08-2024 History of Present illness Narrative* Debbie Mac MD - 02/25/2024 2:00 PM EDT Steve Golden is a 83 y.o. female Chief [...] mouth once daily., Disp: , Rfl: HYDROcodone-acetaminophen ([place]) 10-325 mg tablet, Take 1 tablet by [...] and plan. documented in this [facility] Work Phone: 1(173) 284-624607-08-2024 Instructions* Patient Instructions* Anju Woods LPN - [...] through Care Everywhere. * Heart Healthy Diet ([place]) documented in this encounterSum[facility] Work Phone: 1([phone]) 289-845106-04-2024 History of Present illness Narrative* Millie Sneed [...] m (4' 11 ) documented in this encounterSumma [facility] Work Phone: 1([phone]) 398-354006-02-2024 Progress note Author Christopher Richardson [facility] January 20, 2024 1:46pm Note Date/Time January 20, 2024 1:46p m [facility] [address] [place] [address] Cardiology Progress Note Signed Patient: Austin Golden MR#: [id number] : 1940 Acct:[id number] Age/Sex: 83 / F Adm Date: 4 Loc: 3T Room: [address] [place] [address] Type: ADM IN Attending Dr: Izzy Capps [...] signed by MD Christopher Richardson> 01/20/24 1346 [facility] Work Phone: 1([phone]) 888-299206-01-2024 Progress note Author Izzy Capps [facility] January 19, 2024 6:48pm Note Date/Time January 19, 2024 5:02p m [facility] [address] [place] [address] Hospitalist Progress Note Signed Patient: Austin Golden MR#: [id number] : 1940 Acct:[id number] Age/Sex: 83 / F Adm Date: 4 Loc: Room: [address] [place] [address] Type: ADM IN Attending Dr: Izzy Capps [...] 1,000 Ml IV 01/17/25 15:29 75 mls/hr .[id number] KWAN Administration Diltiazem HCl 100 mg in [...] Plan Documented By: Izzy Capps MD 01/19/24 6501 Signed By: <Electronically signed by Izzy Capps MD> 01/19/24 1845 [facility] Work Phone: 1([phone]) 590-208506-01-2024 Consult note Author Christopher Richardson [facility] January 19, 2024 12:11pm Note Date/Time January 19, 2024 12:08 pm [facility] [address] [place] [address] Cardiology Consult Note Signed Patient: Austin Golden MR#: [id number] : 1940 Acct:[id number] Age/Sex: 83 / F Adm Date: 4 Loc: Room: [address] [place] [address] Type: ADM IN Attending Dr: Izzy Capps [...] List clean-up per request of Phys. [facility] History of cardiac pacemaker in situ Presbyesophagus Hiatal hernia Restless leg Hyperlipemia Problem List clean-up per request of Phys. EHR [facility] CHF (congestive heart failure) Problem List clean-up per request of Phys. EHR [facility] Kidney stones removal of kidney stone R flank in 2021 Problem List clean-up per request of Phys. EHR [facility] Pacemaker Problem List clean-up per request of Phys. EHR [facility] Atrial fibrillation, persistent Problem List clean-up per request of Phys. EHR [facility] COVID-19 2019 Problem List clean-up per request of Phys. EHR [facility] Atrial fibrillation with RVR Problem List clean-up per request of Phys. EHR [facility] Hernia of abdominal wall Problem List clean-up per request of Phys. EHR [facility] Surgical History History of cholecystectomy 2022 History of colonoscopy 2011 History of cardiac catheterization Problem List clean-up per request of Phys. EHR [facility] H/O eye surgery right eye Problem List clean-up per request of Phys. EHR [facility] History of cataract surgery marybeth eye Problem List clean-up per request of Phys. EHR [facility] History of appendectomy Problem List clean-up per request of Phys. EHR [facility] History of tonsillectomy Problem List clean-up per request of Phys. EHR [facility] H/O foot surgery left Problem List clean-up per request of Phys. EHR [facility] History of hysterectomy Problem List clean-up per request of Phys. EHR [facility] Family History Father Heart & renal disease, hypertensive, with heart fail/chron kidney dis Depression Sister Heart disease Mother Brain tumor Father Mother Social History Smoking Status: Never smoker Substance Use Type: None Substance Abuse Comment: etoh occasional Social History Comments: independent living [facility] Medications and Allergies Allergies Sulfa (Sulfonamide [...] A 2,500 unit-vit C 100 mg-biotin 2,500 bqj-slzn-xiyjxx capsule (Tywz-Pbwu-Bkzl (vit A,P-fitbpj-Xr-Cu)) 1 cap PO DAILY 01/18/24 [History Confirmed [...] x10E3/uL Lymph # (Auto) 1.0 (1.00-4.8) x10E3/uL [place] # (Auto) 0.8 (0.0-0.8) x10E3/uL Eos # [...] 1000 ,000 ml @ 75 mls/hr IV .[id number] KWAN Rx#:[id number] dilTIAZem 100 MG -*NaCl* 100 mg 100 / 100 In 100 ml @ 5 MG/HR 5 mls/hr IV .Q20H KWAN Rx#:[id number] Oral 200 / 200 Other: # Voids 1 # Unmeasured Voids 1 # Bowel Movements 0 Weight 69.9 kg 69.7 kg Date of Last Bowel Movement 01/18/24 01/18/24 Patient Weight 01/19/24 23:59 Weight 69.7 kg Lab 01/18/24 15:40 PT 16.8 H INR 1.5 APTT 31.3 A&P - Cardiology (1) Atrial fibrillation with RVR: Assessment/Problem Details: Symptomatic. Believe the episcopalian of maintenance of sinus rhythm is of [...] Signed By: <Electronically signed by MD Christopher Ricahrdson> 01/19/24 1211 [facility] Work Phone: 1(684) 432-185206-01-2024 History and physical note Author Izzy Capps [facility] January 19, 2024 1:25am Note Date/Time January 18, 2024 8:45p m [facility] [address] [place] [address] Hospitalist H&P Signed Patient: Austin Golden MR#: [id number] : 1940 Acct:[id number] Age/Sex: 83 / F Adm Date: 4 Loc: 3T Room: [address] [place] [address] Type: ADM IN Attending Dr: Izzy Capps [...] List clean-up per request of Phys. EHR [facility] Fibromyalgia Problem List clean-up per request of Phys. EHR [facility] Arthritis back and neck Problem List clean-up per request of Phys. EHR [facility] Hypertension Problem List clean-up per request of Phys. EHR [facility] History of cardiac pacemaker in situ Presbyesophagus Hiatal hernia Restless leg Hyperlipemia Problem List clean-up per request of Phys. EHR [facility] CHF (congestive heart failure) Problem List clean-up per request of Phys. EHR [facility] Kidney stones removal of kidney stone R flank in 2021 Problem List clean-up per request of Phys. EHR [facility] Pacemaker Problem List clean-up per request of Phys. EHR [facility] Atrial fibrillation, persistent Problem List clean-up per request of Phys. EHR [facility] COVID-19 2019 Problem List clean-up per request of Phys. EHR [facility] Atrial fibrillation with RVR Problem List clean-up per request of Phys. EHR [facility] Hernia of abdominal wall Problem List clean-up per request of Phys. EHR [facility] Surgical History History of cholecystectomy 2022 History of colonoscopy 2011 History of cardiac catheterization Problem List clean-up per request of Phys. EHR [facility] H/O eye surgery right eye Problem List clean-up per request of Phys. EHR [facility] History of cataract surgery marybeth eye Problem [...] Social History Comments: independent living at the [facility] Medications and Allergies Allergies Sulfa (Sulfonamide [...] A 2,500 unit-vit C 100 mg-biotin 2,500 sxz-pspo-uzpowm capsule (Hsrb-Dulz-Njoq (vit A,X-odscmz-Gv-Cu)) 1 cap PO DAILY 01/18/24 [History Confirmed [...] % (Auto) 9.2 % (.) 01/18/24 15:40 [place] % (Auto) 7.6 % (.) 01/18/24 15:40 Eos % (Auto) 1.2 % (.) 01/18/24 15:40 Baso % (Auto) 0.5 % (.) 01/18/24 15:40 Nucleat RBC Rel Count 0.1 /100 WBC (0-0.5) 01/18/24 15:40 Neut # (Auto) 8.5 x10E3/uL (1.8-7.7) H 01/18/24 15:40 Lymph # (Auto) 1.0 x10E3/uL (1.00-4.8) 01/18/24 15:40 [place] # (Auto) 0.8 x10E3/uL (0.0-0.8) 01/18/24 15:40 [...] signed by Izzy Capps MD> 01/19/24 0125 [facility] Work Phone: 1(342) 261-196801-31-2024 History of Present illness Narrative* Debbie Mac MD - 09/19/2023 1:00 PM EST Steve Golden is a 83 y.o. female Chief [...] mouth once daily., Disp: , Rfl: HYDROcodone-acetaminophen ([place]) 10-325 mg tablet, Take 1 tablet by [...] vessel coronary artery disease [facility] Work Phone: 1([phone]) [phone] Instructions* Patient Instructions* Maggy Vee LPN - [...] Maalox also. Pacemaker check documented [facility]Sum[facility] Work Phone: 1([phone]) [phone] History of Present illness Narrative* Debbie Mac MD - 05/31/2023 3:00 PM EDT Steve Golden is a 82 y.o. female Chief [...] mouth once daily., Disp: , Rfl: HYDROcodone-acetaminophen ([place]) 10-325 mg tablet, Take 1 tablet by [...] 11. Dyspnea, unspecified type documented in [facility]Sum[facility] Work Phone: 1(366) 150-463010-12-2023 Instructions* Patient Instructions* Maggy Vee LPN - [...] time of your visit. 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 No bleeding complications Mar, Chronic heart failure [...] (ICD-10 - R06.02) Multifactorial but mostly deconditioning. [facility] w/o obstructive coronary disease Psat 98% [...] High risk medication use (ICD-10 - Z79.899) [employer] Other 04-10-2023 Consult note Author Debbie Mac [facility] November 27, 2022 11:58am Note Date/Time November 27, 2022 11: 48am [facility] [address] [place] [address] Cardiology Consult Note Signed Patient: Austin Golden MR#: [id number] : 1940 Acct:[id number] Age/Sex: 82 / F Adm Date: 3 Loc: [place] Room: Type: [facility] Attending Dr: Wilbur Watson DO Copies [...] function and a previous stress test in [place] that showed no evidence of myocardial ischemia. [...] at the [facility] Medications and Allergies Allergies fentanyl Allergy [...] signed by MD Debbie Mac> 11/27/22 1158 [facility] Work Phone: 1(730) 140-910304-10-2023 Progress note Author Emmanuel Holland [facility] November 27, 2022 11:10am Note Date/Time November 27, 2022 11: 10am [facility] [address] [place] [address] Anesthesia Progress Note Signed Patient: Austin Golden MR#: [id number] : 1940 Acct:[id number] Age/Sex: 82 / F Adm Date: 3 Loc: [place] Room: Type: [facility] Attending Dr: Wilbur Watson DO Copies [...] signed by Emmanuel Holland Jr, MD> 11/27/22 1115 [facility] Work Phone: 1([phone]) [phone] Evaluation note* Encounter Date Diagnosis Assessment Notes Treatment Notes Treatment Clinical Notes Oct, Pulmonary nodule (ICD-10 - R91.1) CT chest: no nodules - 10/2022 [employer] Other 03-07-2023 Evaluation note* Encounter Date Diagnosis [...] verbalized understanding and agreement of tx plan. [employer] Other 02-02-2023 Discharge summary Author Katie Dukes [facility] September 21, 2022 3:33pm Note Date/Time September 21, 2022 3 :17pm [facility] [address] [place] [address] Discharge Summary Signed Patient: Austin Golden MR#: [id number] : 1940 Acct:[id number] Age/Sex: 82 / F Adm Date: 3 Loc: Room: [address] [place] [address]: Katie Dukes DO Copies to: [...] and collapse. The patient was outside of [facility] when she suddenly lost consciousness. Work-up in [...] % (Auto) 68.2, Lymph % (Auto) 18.9, [place] % (Auto) 7.6, Eos % (Auto) 4.6, Baso % (Auto) 0.7, Nucleat RBC Rel Count 0.0, Neut # (Auto) 3.9, Lymph # (Auto) 1.1, [place] # (Auto) 0.4, Eos # (Auto) 0.3, [...] scheduled for an EKG at [facility] on 09/27/2022 at 1:00pm Instructions: Heart [...] signed by Katie Dukes DO> 09/21/22 1533 [facility] Work Phone: 1(336) 556-770002-02-2023 Progress note Author Debbie Mac [facility] September 21, 2022 9:48am Note Date/Time September 21, 2022 9 :45am [facility] [address] [place] [address] Cardiology Progress Note Signed Patient: Austin Golden MR#: [id number] : 1940 Acct:[id number] Age/Sex: 82 / F Adm Date: 3 Loc: Room: [address] [place] [address] Type: ADM IN Attending Dr: Katie Dukes [...] % (Auto) 68.2 Lymph % (Auto) 18.9 [place] % (Auto) 7.6 Eos % (Auto) 4.6 Baso % (Auto) 0.7 Nucleat RBC Rel Count 0.0 Neut # (Auto) 3.9 Lymph # (Auto) 1.1 [place] # (Auto) 0.4 Eos # (Auto) 0.3 [...] signed by MD Debbie Mac> 09/21/22 0948 [facility] Work Phone: 1([phone] 858-461702-01-2023 Progress note Author Katie Dukes [facility] September 20, 2022 3:21pm Note Date/Time September 20, 2022 3 :21pm [facility] [address] [place] [address] Hospitalist Progress Note Signed Patient: Austin Golden MR#: [id number] : 1940 Acct:[id number] Age/Sex: 82 / F Adm Date: 3 Loc: Room: [address] [place] [address] Type: ADM IN Attending Dr: Katie Dukes [...] signed by Katie Dukes DO> 09/20/22 1521 [facility] Work Phone: 1([phone] History of Present illness Narrative* Austin Golden is an 82 y/o female referred by Dr Mac for evaluation of AF. * PMH includes HTN, HLD, HF, SSS s/p PPG implant, CKD, obesity and AF. * Treatment of her AF includes Amiodarone (d/c d for concerns of parts counterman side effects), tikosyn (prolonged OTc), sotalol and DCCV (09/2022). * Symptoms of her AF include fatigue and BRAY. * Pt follows with Dr Stover for management of her AF. Pt has previously been on Amio but was concerned about retirement side effects. She was then put on [...] CONDUCTION @ 109 bpm * Echo 08/2022 ([facility]): LVEF 40%, moderate anteroseptal hypokinesis with wall motion suggestive of conduction abnormality, LA mildly dilated, trace MR & TR * Echo 06/2021: EF 45%, severe anteroseptal hypokinesis, mild-mod DD, LA mildly dilated, mild-mod MR,mild TR, mild-mod pHTN [facility] Work Phone: 1([phone]) 390-800902-01-2023 History of Present illness Narrative* Austin Golden is an 82 y/o female referred by Dr Mac for evaluation of AF. * PMH includes HTN, HLD, HF, SSS s/p PPG implant, CKD, obesity and AF. * Treatment of her AF includes Amiodarone (d/c d for concerns of parts counterman side effects), tikosyn (prolonged OTc), sotalol and DCCV (09/2022). * Symptoms of her AF include fatigue and BRAY. * Pt follows with Dr Stover for management of her AF. Pt has previously been on Amio but was concerned about parts counterman side effects. She was then put on [...] CONDUCTION @ 109 bpm * Echo 08/2022 ([facility]): LVEF 40%, moderate anteroseptal hypokinesis with wall motion suggestive of conduction abnormality, LA mildly dilated, trace MR & TR * Echo 06/2021: EF 45%, severe anteroseptal hypokinesis, mild-mod DD, LA mildly dilated, mild-mod MR,mild TR, mild-mod pHTN [id number] [address] [place] Work Phone: 1([phone]) 548-641802-01-2023 Progress note Author Debbie Mac [facility] September 20, 2022 9:04am Note Date/Time September 20, 2022 9 :03am [facility] [address] [place], [place] [address] Cardiology Progress Note Signed Patient: Austin Golden MR#: [id number] : 1940 Acct:[id number] Age/Sex: 82 / F Adm Date: 3 Loc: Room: [address] [place] [address] Type: ADM IN Attending Dr: Katie Dukes [...] % (Auto) 65.4 Lymph % (Auto) 22.6 [place] % (Auto) 6.8 Eos % (Auto) 4.5 Baso % (Auto) 0.7 Nucleat RBC Rel Count 0.2 Neut # (Auto) 3.6 Lymph # (Auto) 1.2 [place] # (Auto) 0.4 Eos # (Auto) 0.2 [...] By: <Electronically signed by MD Debbie Mac> 09/20/22903 [facility] Work Phone: 1(852) 841-148802-01-2023 [facility]FirPark[facility]-31-2023 Progress note Author Katie Dukes [facility] September 19, 2022 6:52pm Note Date/Time September 19, 2022 6 :52pm [facility] [address] [place] [address] Hospitalist Progress Note Signed Patient: Austin Golden MR#: [id number] : 1940 Acct:[id number] Age/Sex: 82 / F Adm Date: 3 Loc: 4 Room: [address] [place] [address] Type: ADM IN Attending Dr: Katie Dukes [...] <Electronically signed by Katie Dukes DO> 09/19/22 185 [facility] Work Phone: 1([phone]) [phone] Progress note Author Debbie Mac [facility] September 19, 2022 9:57am Note Date/Time September 19, 2022 9 :57am [facility] [address] [place] [address] Cardiology Progress Note Signed Patient: Austin Golden MR#: [id number] : 1940 Acct:[id number] Age/Sex: 82 / F Adm Date: 3 Loc: 4P Room: [address] [place] [address] Type: ADM IN Attending Dr: Katie Dukes [...] % (Auto) 68.4 Lymph % (Auto) 20.4 [place] % (Auto) 6.6 Eos % (Auto) 4.0 Baso % (Auto) 0.6 Nucleat RBC Rel Count 0.1 Neut # (Auto) 4.2 Lymph # (Auto) 1.2 [place] # (Auto) 0.4 Eos # (Auto) 0.2 [...] signed by MD Debbie Mac> 09/19/22 0957 [facility] Work Phone: 1(129) 691-388901-30-2023 Progress note Author Katie Dukes [facility] September 18, 2022 6:04pm Note Date/Time September 18, 2022 6 :04pm [facility] [address] [place] [address] Hospitalist Progress Note Signed Patient: Austin Golden MR#: [id number] : 1940 Acct:[id number] Age/Sex: 82 / F Adm Date: 3 Loc: Room: [address] [place] [address] Type: ADM IN Attending Dr: Katie Dukes [...] <Electronically signed by Katie Dukes DO> 09/18/22 0031 [facility] Work Phone: 1(951) 111-900101-30-2023 Consult note Author Debbie Mac [facility] September 18, 2022 3:50pm Note Date/Time September 18, 2022 3 :39pm [facility] [address] [place] [address] Cardiology Consult Note Signed Patient: Austin Golden MR#: [id number] : 1940 Acct:[id number] Age/Sex: 82 / F Adm Date: 3 Loc: Room: [address] [place] [address] Type: ADM IN Attending Dr: Katie Dukes [...] test was 2 years ago back in [place] and was negative Review of Systems Review [...] at the [facility] Medications and Allergies Allergies fentanyl Allergy [...] 09/17/22 13:19 Lab results: Intake and Output 01/29/23 01/30/23 01/30/23 23:59 07:59 15:59 Intake Total 480 / [...] Signed By: <Electronically signed by MD Debbie aMc> 09/18/22 1550 [facility] Work Phone: 1(282) [phone] History and physical note Author Jay Ceja [facility] September 17, 2022 5:45pm Note Date/Time September 17, 2022 5 :45pm [facility] [address] [place] [address] Hospitalist H&P Signed Patient: Austin oGlden MR#: [id number] : 1940 Acct:[id number] Age/Sex: 82 / F Adm Date: 3 Loc: Room: [address] [place] [address] Type: ADM IN Attending Dr: Jay Ceja [...] rate at home. Today she was at [facility] and she was standing upwaiting for her [...] at the [facility] Medications and Allergies Allergies fentanyl Allergy [...] % (Auto) 15.2 % (.) 09/17/22 13:19 [place] % (Auto) 7.1 % (.) 09/17/22 13:19 Eos % (Auto) 3.5 % (.) 09/17/22 13:19 Baso % (Auto) 0.6 % (.) 09/17/22 13:19 Nucleat RBC Rel Count 0.3 /100 WBC (0-0.5) 09/17/22 13:19 Neut # (Auto) 5.9 x10E3/uL (1.8-7.7) 09/17/22 13:19 Lymph # (Auto) 1.2 x10E3/uL (1.00-4.8) 09/17/22 13:19 [place] # (Auto) 0.6 x10E3/uL (0.0-0.8) 09/17/22 13:19 [...] pH 5.5 (5.0-9.0) 09/17/22 13:19 Ur Specific [place] 1.024 (1.001-1.030) 09/17/22 13:19 Urine Protein Trace [...] <Electronically signed by Jay Ceja DO> 09/17/22 1741 [facility] Work Phone: 1([phone]) 551-744501-24-2023 Evaluation note* Encounter Date Diagnosis Assessment Notes Treatment Notes Treatment Clinical Notes Aug, Persistent atrial fibrillation (ICD-10 - I48.19) This patient is in NSR or rate controlled. This patient is anticoagulated to prevent thromboembolic events. 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 Aug, Chronic heart failure with preserved ejection [...] use, the patient reduces the risk for NC, CVA, HTN, cardiac dysrhythmias and sudden cardiac [...] supplement, exercise w/ healthy diet. Symptoms tolerable [employer] Other 01-18-2023 Progress note Author Debbie Mac [facility] September 06, 2022 9:57am Note Date/Time September 06, 2022 9 :53am [facility] [address] [place] [address] Cardiology Progress Note Signed Patient: Austin Golden MR#: [id number] : 1940 Acct:[id number] Age/Sex: 81 / F Adm Date: 3 Loc: Room: [address] [place] [address] Type: ADM IN Attending Dr: Anival Easton [...] By: <Electronically signed by MD Debbie Mac> 09/06/2263 [facility] Work Phone: 1(774) 516-878401-17-2023 Progress note Author Anival Easton [facility] September 05, 2022 6:18pm Note Date/Time September 05, 2022 3 :58pm [facility] [address] [place] [address] Hospitalist Progress Note Signed Patient: Austin Golden MR#: [id number] : 1940 Acct:[id number] Age/Sex: 81 / F Adm Date: 3 Loc: Room: [address] [place] [address] Type: ADM IN Attending Dr: Anival Easton [...] mg 09/01/22 20:29 Bisacodyl 10 Mg Supp.Rect ME 09/01/23 20:28 DAILY PRN Constipation Docusate Sodium [...] 2. Dysphagia?speech therapy, postrepair paraesophageal hiatal hernia Innis 2016 Attending attestation: Patient was personally seen by me on the day of encounter. I reviewed her history and performed shea elements of exam and formulated the plan of care and confirmed the CONTRACTING ANALYST's note above. Plan of care reflects my direct input Documented By: MELY Jacob 3 2684 Signed By: <Electronically signed by ANP-ABI Haro> 09/05/22 1722 <Electronically signed by Anival Easton MD> 09/05/22 1818 [facility] Work Phone: 1(197) 486-511101-17-2023 Progress note Author Debbie Mac [facility] September 05, 2022 12:06pm Note Date/Time September 05, 2022 1 2:06pm [facility] [address] [place] [address] Cardiology Progress Note Signed Patient: Austin Golden MR#: [id number] : 1940 Acct:[id number] Age/Sex: 81 / F Adm Date: 3 Loc: Room: 0X1137-8 Type: ADM IN Attending Dr: Anival Easton [...] % (Auto) 59.1 Lymph % (Auto) 25.6 [place] % (Auto) 9.7 Eos % (Auto) 4.7 Baso % (Auto) 0.9 Nucleat RBC Rel Count 0.2 Neut # (Auto) 3.3 Lymph # (Auto) 1.4 [place] # (Auto) 0.5 Eos # (Auto) 0.3 [...] today Documented By: Debbie Mac MD 09/05/22 120 Signed By: <Electronically signed by MD Debbie Mac> 09/05/22 1206 [facility] Work Phone: 1(529) 404-771101-17-2023 Progress note Author Anival Easton [facility] September 05, 2022 8:27am Note Date/Time September 04, 2022 2 :47pm [facility] [address] [place] [address] Hospitalist Progress Note Signed Patient: Austin Golden MR#: [id number] : 1940 Acct:[id number] Age/Sex: 81 / F Adm Date: 3 Loc: Room: [address] [place] [address] Type: ADM IN Attending Dr: Anival Easton [...] mg 09/01/22 20:29 Bisacodyl 10 Mg Supp.Rect ME 09/01/23 20:28 DAILY PRN Constipation Docusate Sodium [...] 2. Dysphagia?speech therapy, postrepair paraesophageal hiatal hernia Innis 2016 Attending attestation: Patient was personally seen by me on the day of encounter. I reviewed her history and performed shea elements of exam and formulated the plan of care and confirmed the nurse practitioner's note above. Documented By: JosephineMELY Cardenas 3 1446 Signed By: <Electronically signed by MELY Haro> 09/04/221927 <Electronically signed by Anival Easton MD> 09/05/22 0827 [facility] Work Phone: 1(374) 292-712701-16-2023 Progress note Author Jimena Smith [facility] September 04, 2022 11:32am Note Date/Time September 04, 2022 1 1:32am [facility] [address] [place] [address] Cardiology Progress Note Signed Patient: Austin Golden MR#: [id number] : 1940 Acct:[id number] Age/Sex: 81 / F Adm Date: 3 Loc: 4 Room: [address] [place] [address] Type: ADM IN Attending Dr: Anival Easton [...] % (Auto) 64.7 Lymph % (Auto) 22.7 [place] % (Auto) 7.6 Eos % (Auto) 4.3 Baso % (Auto) 0.7 Nucleat RBC Rel Count 0.2 Neut # (Auto) 4.3 Lymph # (Auto) 1.5 [place] # (Auto) 0.5 Eos # (Auto) 0.3 [...] pressure readings Documented By: Jimena Smith MD, [facility] 3 1129 Signed By: <Electronically signed by [facility] Jimena Smith> 09/04/22 1132 [facility] Work Phone: 1([phone]) 959-995801-15-2023 Progress note Author Jay Cjea [facility] September 03, 2022 1:12pm Note Date/Time September 03, 2022 1 :12pm [facility] [address] [place] [address] Hospitalist Progress Note Signed Patient: Austin Golden MR#: [id number] : 1940 Acct:[id number] Age/Sex: 81 / F Adm Date: 3 Loc: Room: [address] [place] [address] Type: ADM IN Attending Dr: Jay Ceja [...] mg 09/01/22 20:29 Bisacodyl 10 Mg Supp.Rect ME 09/01/23 20:28 DAILY PRN Constipation Bisacodyl 10 [...] repair of a paraesophageal hiatal hernia [facility] and 2016. High-resolution CT scan of [...] signed by Jay Ceja DO> 09/03/22 1312 [facility] Work Phone: [phone] 366-428801-15-2023 Progress note Author Jimena Smith [facility] September 03, 2022 12:24pm Note Date/Time September 03, 2022 1 2:21pm [facility] [address] [place] [address] Cardiology Progress Note Signed Patient: Austin Golden MR#: [id number] : 1940 Acct:[id number] Age/Sex: 81 / F Adm Date: 3 Loc: Room: [address] [place] [address] Type: ADM IN Attending Dr: Jay Ceja [...] % (Auto) 68.3 Lymph % (Auto) 19.1 [place] % (Auto) 8.2 Eos % (Auto) 3.9 Baso % (Auto) 0.5 Nucleat RBC Rel Count 0.2 Neut # (Auto) 5.0 Lymph # (Auto) 1.4 [place] # (Auto) 0.6 Eos # (Auto) 0.3 [...] add spironolactone Documented By: Jimena Smith MD, [facility] 3 1220 Signed By: <Electronically signed by MD CLAUDIA Smith> 09/03/22 1224 [facility] Work Phone: 1([phone]) 720-318301-14-2023 Consult note Author Jimena Smith [facility] September 02, 2022 2:58pm Note Date/Time September 02, 2022 2 :53pm [facility] [address] [place] [address] Cardiology Consult Note Signed Patient: Austin Golden MR#: [id number] : 1940 Acct:[id number] Age/Sex: 81 / F Adm Date: 3 Loc: Room: [address] [place] [address] Type: ADM IN Attending Dr: Jay Ceja DO Copies to: DO Jimena Carias MD, [facility] Jay Ceja DO~ Cardiology HPI History [...] at the [facility] Medications and Allergies Allergies fentanyl Allergy [...] x10E3/uL Lymph # (Auto) 1.6 (1.00-4.8) x10E3/uL [place] # (Auto) 0.5 (0.0-0.8) x10E3/uL Eos # [...] ml @ 600 mls/hr IV [facility] Rx#:[id number] Amiodarone 360Mg-*D5w* 360 mg 200 / 200 200 / 400 200 / 400 In 200 ml @ 1 MG/MIN 33.333 mls /hr IV .Q6H [facility] Rx#:[id number] Oral 100 / 100 Other: # Voids [...] (primary) hypertension Documented By: Jimena Smith MD, [facility] 3 1452 Signed By: <Electronically signed by [facility] Jimena Smith> 09/02/22 4108 [facility] Work Phone: 1([phone]) 453-640701-14-2023 Progress note Author Jay Ceja [facility] September 02, 2022 2:42pm Note Date/Time September 02, 2022 1 :43pm [facility] [address] [place] [address] Hospitalist Progress Note Signed Patient: Austin Golden MR#: [id number] : 1940 Acct:[id number] Age/Sex: 81 / F Adm Date: 3 Loc: Room: [address] [place] [address] Type: ADM IN Attending Dr: Jay Ceja [...] mg 09/01/22 20:29 Bisacodyl 10 Mg Supp.Rect ME 09/01/23 20:28 DAILY PRN Constipation Bisacodyl 10 [...] signed by Jay Ceja DO> 09/02/22 1442 [facility] Work Phone: 1([phone] 649-326901-13-2023 History and physical note Author Jay Ceja [facility] September 01, 2022 8:29pm Note Date/Time September 01, 2022 8 :29pm [facility] [address] [place] [address] Hospitalist H&P Signed Patient: Austin Golden MR#: [id number] : 1940 Acct:[id number] Age/Sex: 81 / F Adm Date: 3 Loc: ER Room: Type: [facility] ER Attending Dr: Copies to: DO Jay [...] review all of the events in the monitoring coordinator system. None of these are consistent with [...] at the [facility] Medications and Allergies Allergies fentanyl Allergy [...] wheezing. No focal crackles. Heart: On the monitoring coordinator she has an irregularly irregular rhythm with [...] % (Auto) 13.9 % (.) 09/01/22 12:40 [place] % (Auto) 7.5 % (.) 09/01/22 12:40 Eos % (Auto) 4.1 % (.) 09/01/22 12:40 Baso % (Auto) 0.8 % (.) 09/01/22 12:40 Nucleat RBC Rel Count 0.1 /100 WBC (0-0.5) 09/01/22 12:40 Neut # (Auto) 5.9 x10E3/uL (1.8-7.7) 09/01/22 12:40 Lymph # (Auto) 1.1 x10E3/uL (1.00-4.8) 09/01/22 12:40 [place] # (Auto) 0.6 x10E3/uL (0.0-0.8) 09/01/22 12:40 [...] pH 5.5 (5.0-9.0) 09/01/22 13:32 Ur Specific [place] 1.022 (1.001-1.030) 09/01/22 13:32 Urine Protein 30 [...] home. Heart healthy diet. Documented By: Jay eCja DO 2015 Signed By: <Electronically signed by Jay Ceja DO> 09/01/222028 [facility] Work Phone: 1([phone]) 420-709609-08-2022 Evaluation note* Encounter Date Diagnosis Assessment Notes Treatment Notes Treatment Clinical Notes Apr, Cirrhosis (ICD-10 - K74.60) Apr, Vomiting (ICD-10 - R11.10) THIS IS 10 MINS ATER EATING AND UNDIGESTED FOODS. 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 brettapproved Other 05-17-2022 Reason for visit NarrativePATIENT HERE FOR FOLLOW UP TO EMS PROCEDURE ON 01/03/2022 FOR DYSPHAGIA. PATIENT DID HAVE A MODIFIEDBARIUM SWALLOWNorth [facility] Other 11-15-2021 Note [id number]:127[facility] 06-23-2021 [id number] [place] [address] [place] Work Phone: 1(965) 995-477011-04-2021 [id number] ECG Post Procedure -[facility] [address] [place] Work Phone: 1(689) 124-846111-04-2021 [id number]-[id number]:09[facility] ECG Post Procedure [facility] [address] [place] Work Phone: 1(112) 706-288911-02-2021 [facility] COVID-19 FRMCNegative (Normal) Range:Negative Comments:Testing for SARS-CoV-2 by RT-PCR This test was developed and its performance characteristics determined by [employer] and validated at the [facility]. This test has not been FDA [...] the authorization is terminated or revoked sooner.PERFORMED BY:[place] [address] [address] [place] [id number] MEDICAL DIRECTORVITOR ZARATE M.D. [facility] [place] Work Phone: Comment on above:Testing for SARS-CoV-2 by RT-PCR This test was developed and its performance characteristics determined by [employer] ([employer]) and validated at the [facility]. This test has not been FDA [...] the authorization is terminated or revoked sooner.PERFORMED BY:[facility] [place] [id number] MEDICAL DIRECTORVITOR ZARATE M.D. 06-21-2021 NoteFR COVID-19 [facility] (Normal)Range:Negative Comments:Testing for SARS-CoV-2 by RT-PCR This test was developed and its performance characteristics determined by [employer] (BD) and validated at the [facility]. This test has not been FDA [...] the authorization is terminated or revoked sooner.PERFORMED BY:[facility]1111 LUAN YOST [id number] MEDICAL DIRECTORVITOR ZARATE M.D. [facility] [place] Work Phone: Comment on above:Testing for SARS-CoV-2 by RT-PCR This test was developed and its performance characteristics determined by [employer] (BD) and validated at the [facility]. This test has not been FDA [...] the authorization is terminated or revoked sooner.PERFORMED BY:[place] [address] [address] [place] [id number] MEDICAL DIRECTORVITOR ZARATE M.D. 06-21-2021 NoteFR COVID-19 FRNegative (Normal)Range:Negative Comments:Testing for SARS-CoV-2 by RT-PCR This test was developed and its performance characteristics determined by [employer] (BD) and validated at the [facility]. This test has not been FDA [...] the authorization is terminated or revoked sooner.PERFORMED BY:[place] [address] [address] [place] [id number] MEDICAL DIRECTORVITOR ZARATE M.D. [address] Work Phone: Comment on above:Testing for SARS-CoV-2 by RT-PCR This test was developed and its performance characteristics determined by [employer] and validated at the [facility]. This test has not been FDA [...] the authorization is terminated or revoked sooner.PERFORMED BY:[place] [address] [address] [place] [id number] MEDICAL DIRECTORVITOR ZARATE M.D. 06-21-2021 NoteFR COVID-19 [facility] (Normal)Range:Negative Comments:Testing for SARS-CoV-2 by RT-PCR This test was developed and its performance characteristics determined by [employer] and validated at the [facility]. This test has not been FDA [...] the authorization is terminated or revoked sooner.PERFORMED BY:[place] [address] [place] [place], [place] [id number] MEDICAL DIRECTORVITOR ZARATE M.D. [address] Work Phone: Comment on above:Testing for SARS-CoV-2 by RT-PCR This test was developed and its performance characteristics determined by [employer] (BD) and validated at the [facility]. This test has not been FDA [...] the authorization is terminated or revoked sooner.PERFORMED BY:[place] [address] [place], [place] [id number] MEDICAL DIRECTORVITOR ZARATE M.D. 06-21-2021 NoteFR COVID-19 [facility]Range:Negative Comments:Testing for SARS-CoV-2 by RT-PCR This test was developed and its performance characteristics determined by [facility] ([facility] and validated at the [facility]. This test has not been FDA [...] the authorization is terminated or revoked sooner.PERFORMED BY:[address] [place], [place] [id number] MEDICAL DIRECTORVITOR ZARATE M.D. [address] Work Phone: Comment on above:Testing for SARS-CoV-2 by RT-PCR This test was developed and its performance characteristics determined by [employer] (BD) and validated at the [facility]. This test has not been FDA [...] the authorization is terminated or revoked sooner.PERFORMED BY:[place] [address] [address] [place] [id number] MEDICAL DIRECTORVITOR ZARATE M.D. 06-21-2021 NoteFR COVID-19 FRNegative (Normal)Range:Negative Comments:Testing for SARS-CoV-2 by RT-PCR This test was developed and its performance characteristics determined by [employer] (BD) and validated at the [facility]. This test has not been FDA [...] the authorization is terminated or revoked sooner.PERFORMED BY:[place] [address] [address] [place] [id number] MEDICAL DIRECTORVITOR ZARATE M.D. [address] Work Phone: Comment on above:Testing for SARS-CoV-2 by RT-PCR This test was developed and its performance characteristics determined by [employer] (BD) and validated at the [facility]. This test has not been FDA [...] the authorization is terminated or revoked sooner.PERFORMED BY:[place] [address] [address] [place], [place] [id number] MEDICAL DIRECTORVITOR ZARATE M.D. 06-21-2021 NoteFR COVID-19 [facility] (Normal)Range:Negative Comments:Testing for SARS-CoV-2 by RT-PCR This test was developed and its performance characteristics determined by [employer] (BD) and validated at the [facility]. This test has not been FDA [...] the authorization is terminated or revoked sooner.PERFORMED BY:[place] [address] [address] [place] [id number] MEDICAL DIRECTORVITOR ZARATE M.D. [facility] 250 DO Work Phone: Comment on above:Testing for SARS-CoV-2 by RT-PCR This test was developed and its performance characteristics determined by [employer] (BD) and validated at the [facility]. This test has not been FDA [...] the authorization is terminated or revoked sooner.PERFORMED BY:[address] [id number] MEDICAL DIRECTORVITOR ZARATE M.D. Chief complaint Narrative - ReportedAUSTIN GOLDEN is being seen for a cardiovascular evaluation of atrial fibrillation.PM-Drdruospxe-Ilaeli Work Phone: Chief complaint Narrative - ReportedAUSTIN GOLDEN is being seen for a cardiovascular evaluation of atrial fibrillation. BV-Ioluozpsmn-YXW Francis Flores [address] [place] Work Phone: Consult note Author Jimena Smith [facility] September 02, 2022 2:58pm Note Date/Time September 02, 2022 2 :53pm [facility] [address] [place] [address] Cardiology Consult Note Signed Patient: Austin Golden MR#: [id number] : 1940 Acct:[id number] Age/Sex: 81 / F Adm Date: 3 Loc: Room: [address] [place] [address] Type: ADM IN Attending Dr: Jay Ceja DO Copies to: DO Jimena Carias MD, [facility] Jay Ceja DO~ Cardiology HPI History [...] at the [facility] Medications and Allergies Allergies fentanyl Allergy [...] x10E3/uL Lymph # (Auto) 1.6 (1.00-4.8) x10E3/uL [place] # (Auto) 0.5 (0.0-0.8) x10E3/uL Eos # [...] ml @ 600 mls/hr IV [facility] Rx#:[id number] Amiodarone 360Mg-*D5w* 360 mg 200 / 200 200 / 400 200 / 400 In 200 ml @ 1 MG/MIN 33.333 mls /hr IV .Q6H [facility] Rx#:[id number] Oral 100 / 100 Other: # Voids [...] (primary) hypertension Documented By: Jimena Smith MD, [facility] 3 1452 Signed By: <Electronically signed by [facility] Jimena Smith> 09/02/22 5629 [facility] Work Phone: Consult note Author Javed Dee [facility] Note Date/Time July 01, 2024 11:50am [facility] [address] [place] [address] Cardiology Consult Note Signed Patient: Austin Golden MR#: [id number] : 1940 Acct:[id number] Age/Sex: 83 / F Adm Date: 4 Loc: Room: [address] [place] [address] Type: ADM IN Attending Dr: Shilpa Fenton [...] catheterization performed earlier this year at [facility] revealing mild coronary disease and normal left [...] List clean-up per request of Phys. EHR [facility] Kidney stones removal of kidney stone R flank in 2021 Problem List clean-up per request of Phys. EHR [facility] Pacemaker Problem List clean-up per request of Phys. EHR Cmte Atrial fibrillation, persistent Problem List clean-up per request of Phys. EHR [facility] COVID-19 2019 Problem List clean-up per request of Phys. EHR [facility] Atrial fibrillation with RVR Problem List clean-up per request of Phys. EHR [facility] Hernia of abdominal wall Problem List clean-up per request of Phys. EHR [facility] Surgical History History of repair of hiatal hernia (~2014) History of left heart catheterization (~03/2024) LHC: LAD 40-50%, diagonal 70%, RCA 40-50%, normal LVEF - 03/2024 History of cholecystectomy 2022 History of colonoscopy 2011 History of cardiac catheterization Problem List clean-up per request of Phys. EHR [facility] H/O eye surgery right eye Problem List clean-up per request of Phys. EHR [facility] History of cataract surgery marybeth eye Problem List clean-up per request of Phys. EHR [facility] History of appendectomy Problem List clean-up per request of Phys. EHR [facility] History of tonsillectomy Problem List clean-up per request of Phys. EHR [facility] H/O foot surgery left Problem List clean-up per request of Phys. EHR [facility] History of hysterectomy Problem List clean-up per request of Phys. EHR [facility] Family History Father Heart & renal disease, hypertensive, with heart fail/chron kidney dis Depression Sister Heart disease Mother Brain tumor Father Mother Social History Smoking Status: Never smoker Substance Use Type: None Substance Abuse Comment: etoh occasional Social History Comments: independent living at the [facility] Medications and Allergies Allergies No Known [...] Lymph # (Auto) 1.4 1.4 (1.00-4.8) x10E3/uL [place] # (Auto) 0.6 0.5 (0.0-0.8) x10E3/uL Eos [...] risk medication use: Code(s): Z79.899 - 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 therapy (3) Chronic heart failure [...] signed by Javed Dee DO> 07/01/24 1150 [facility] Work Phone: Discharge summary Author Izzy Capps [facility] January 20, 2024 3:42pm Note Date/Time January 20, 2024 2:55p m [facility] [address] [place], [place] [id number] Discharge Summary Signed Patient: Austin Golden MR#: [id number] : 1940 Acct:[id number] Age/Sex: 83 / F Adm Date: 4 Loc: Room: [address] [place] [address]: Izzy Capps MD Copies to: [...] 1 mg tablet 1 mg PO QHS Bwly-Rraw-Dkms(vit A,C-biotin) 2,500 unit-100 mg-2,500 mcg capsule 1 [...] 30 Days Qty: 60 12RF Follow Up: [facility] [Provider Group] (Call office on Sunday to schedule follow-up with [facility]. ) Jazmin العلي DO [Primary [...] AOx3. Documented By: Izzy Capps MD 01/20/24 8888 Signed By: <Electronically signed by Izzy Capps MD> 01/20/24 7715 [facility] Work Phone: Discharge summary[address] [address] Discharge Summary Signed Patient: Austin Golden MR#: [id number] : 1940 Acct:[id number] Age/Sex: 83 / F Adm Date: 4 Loc: 3T Room: [address] [place] [address]: Shilpa Fenton MD Copies to: DO Shilpa Carias MD~ Providers Date of Discharge: 07/03/24 Discharging Provider: Shilpa Fenton Primary Care Provider: Jazmin العلي Consults: 06/30/24 17:45 Consult to Cardiology Routine Comment: Consulting Provider: [facility] Reason For Exam: cp Has Provider Been [...] diastolic congestive heart failure, compensated Non-ST elevation NC type II Summary Hospital Course Hospital course: [...] denies any shortness of breath she was [id number]% on room air at rest. Denies any [...] Laboratory work up and Imaging studies reviewed gambling monitor - reviewed, after electrical cardioversion remained paced [...] % (Auto) 80.9, Lymph % (Auto) 10.9, [place] % (Auto) 5.6, Eos % (Auto) 2.3, Baso % (Auto) 0.3, Nucleat RBC Rel Count 0.1, Neut # (Auto) 7.9 H, Lymph # (Auto) 1.1, [place] # (Auto) 0.5, Eos # (Auto) 0.2, Baso # (Auto) 0.0, PHA Creatinine Clear 36.26, Sodium 139, Potassium 3.6, Chloride 106, Carbon Dioxide 25.5, Anion Gap 11.1, BUN 23, Creatinine 1.07, Est GFR (CKD-EPI) 52.185, [id number] H, Calcium 8.3 L Documented By: Shilpa Fenton MD 07/03/24 2143 Signed By: 07/03/24 8681 [facility] Author Shilpa Fenton [facility] Note Date/Time July 03, 2024 4:51pm [facility] [address] [place] [address] Discharge Summary Signed Patient: Austin Golden MR#: [id number] : 1940 Acct:[id number] Age/Sex: 83 / F Adm Date: 4 Loc: Room: [address] [place] [address]: Shipla Fenton MD Copies to: DO Shilpa Carias MD~ Providers Date of Discharge: 07/03/24 Discharging Provider: Shilpa Fenton Primary Care Provider: Jazmin العلي Consults: 06/30/24 17:45 Consult to Cardiology Routine Comment: Consulting Provider: [facility], [facility] Reason For Exam: cp Has Provider [...] diastolic congestive heart failure, compensated Non-ST elevation NC type II Summary Hospital Course Hospital course: [...] Laboratory work up and Imaging studies reviewed gambling monitor - reviewed, after electrical cardioversion remained paced [...] % (Auto) 80.9, Lymph % (Auto) 10.9, [place] % (Auto) 5.6, Eos % (Auto) 2.3, Baso % (Auto) 0.3, Nucleat RBC Rel Count 0.1, Neut # (Auto) 7.9 H, Lymph # (Auto) 1.1, [place] # (Auto) 0.5, Eos # (Auto) 0.2, Baso # (Auto) 0.0, PHA Creatinine Clear 36.26, Sodium 139, Potassium 3.6, Chloride 106, Carbon Dioxide 25.5, Anion Gap 11.1, BUN 23, Creatinine 1.07, Est GFR (CKD-EPI) 52.185, [id number] H, Calcium 8.3 L Documented By: Shilpa Fenton MD 07/03/24 1648 Signed By: <Electronically signed by Shilpa Fenton MD> 07/03/24 1651 [facility] Work Phone: evaluation noteNo assessment information available [facility] Work Phone: evaluation noteNo InformationNokindred hospital Sova Other Evaluguvuf note* Diagnosis Onset Date Resolution Status Atrial fibrillation with rapid ventricular response acute CHF (congestive heart failure) acute Dysphagia acute Dyspnea on exertion acute Hypertension acute Sick sinus syndrome acute Ventricular tachycardia acut e Weakness acute [facility] Work Phone: evaluation note* Diagnosis Onset Date Resolution Status Atrial fibrillation with rapid ventricular response acute CHF (congestive heart failure) acute Dysphagia acute Dyspnea on exertion acute HTN (hypertension), benign a cute Hypertension acute Left ventricular systolic dysfunction, NYHA class 2 acute Sick sinus syndrome acute Ventricular tachycardia acut e Weakness acute [facility] Work Phone: evaluation note* Diagnosis Onset Date Resolution Status Atrial fibrillation with rapid ventricular response acute CHF (congestive heart failure) acute Dysphagia acute Dyspnea on exertion acute HTN (hypertension), benign a cute Hypertension acute Left ventricular systolic dysfunction, NYHA class 2 acute Sick sinus syndrome acute Ventricular tachycardia acut e Weakness acute Atrial fibrillation with rapid ventricular response acute Syncope acute [facility] Work Phone: evaluation note* Diagnosis Onset Date [...] dysfunction, NYHA class 2 acute Syncope acute [facility] Work Phone: evaluation note* Diagnosis Onset Date [...] acute Syncope acute Atrial fibrillation, persistent acute [facility] Work Phone: Evaluation note* Diagnosis Onset Date Resolution Status Anticoagulated acute Atrial fibrillation with rapid ventricular response acute Dyspnea on exertion acute Hypertension acute Left ventricular systolic dysfunction, NYHA class 2 acute Syncope acute Atrial fibrillation, persistent acute [facility] Work Phone: Evaluation note* Diagnosis [...] Dyspnea, unspecified type documented in this encounter [facility] Work Phone: Evaluation note* Diagnosis Chronic diastolic heart failure (CMS/HCC) Chronic diastolic heart failure Essential hypertension, benign Dyspnea, unspecified type documented in this encounter [facility] Work Phone: Evaluation note* Diagnosis Chronic diastolic heart failure (CMS/HCC) Chronic diastolic heart failure Essential hypertension, benign Dyspnea, unspecified type documented in this encounter [facility] Work Phone: Evaluation note* Diagnosis Persistent atrial fibrillation (CMS/HCC)- Primary Atrial fibrillation 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) Chronic diastolic heart failure (CMS/HCC) Chronic diastolic heart failure Essential hypertension, benign Mixed hyperlipidemia Pacemaker Cardiac pacemaker in situ Sinus bradycardia Other specified cardiac dysrhythmias Single vessel coronary artery disease Coronary atherosclerosis of unspecified type of vessel, osage or graft documented in this encounter [facility] Work Phone: Evaluation note* Diagnosis Onset Date Resolution Status 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) acute Hypercholesterolemia acute Lumbar spondylosis acute Obstructive sleep apnea acut e Paroxysmal atrial fibrillation acute Primary hypertension acute Stage 3a chronic kidney disease acute [facility] Work Phone: Evaluation note* Diagnosis Onset [...] acute Stage 3a chronic kidney disease acute [facility] Work Phone: evaluation note* Diagnosis [...] hernia noneacti ve Nausea & vomiting noneactive [facility] Work Phone: evaluation note* Diagnosis Onset [...] acute Hx of hiatal hernia noneacti ve [facility] Work Phone: evaluation note* Diagnosis Onset [...] acute Stage 3a chronic kidney disease acute [facility] Work Phone: Evaluation note* Diagnosis Onset [...] GERD (gastroesophageal reflux disease) acute Vomiting acute [facility] Work Phone: Evaluation note* Diagnosis [...] smoked any substance documented in this encounter [facility] Work Phone: Evaluation note* Diagnosis Esophageal dysphagia [...] use of anticoagulants documented in this encounter [facility] Work Phone: Evaluation note* Diagnosis NO SHOW- Primary [facility] Diagnosis Atrial flutter, unspecified type (Multi)- Primary Persistent atrial fibrillation (Multi) Atrial fibrillation High risk medication use Anticoagulated Encounter for long-term (current) use of anticoagulants Chronic diastolic heart failure (Multi) Chronic diastolic heart failure Single vessel coronary artery disease Coronary atherosclerosis of unspecified type of vessel, osage or graft 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 (Multi) Pacemaker Cardiac pacemaker in situ Essential hypertension, benign Mixed hyperlipidemia Gallstones Calculus of gallbladder without mention of cholecystitis or obstruction Stage 3a chronic kidney disease (Multi) Shortness of breath BMI 30.0-30.9,adult documented in this encounter [facility] Work Phone: Evaluation note* Diagnosis High risk medication use- Primary Diastolic heart failure, unspecified HF chronicity (Multi) Abnormal EKG Nonspecific abnormal electrocardiogram (ECG) (EKG) Anticoagulation management encounter Encounter for therapeutic drug monitoring Longstanding persistent atrial fibrillation (Multi) Sinus bradycardia Other specified cardiac dysrhythmias Pacemaker Cardiac pacemaker in situ BMI 30.0-30.9,adult Never smoked tobacco documented in this encounter [facility] Work Phone: Evaluation note* Diagnosis High risk medication use- Primary Pacemaker Cardiac pacemaker in situ Anticoagulation management encounter Encounter for therapeutic drug monitoring Longstanding persistent atrial fibrillation (Multi) Sinus bradycardia Other specified cardiac dysrhythmias BMI 28.0-28.9,adult Never smoked any substance documented in this encounter [facility] Work Phone: Evaluation note* Diagnosis Atrial flutter, unspecified type (Multi)- Primary Essential hypertension, benign Chronic diastolic heart failure (Multi) Chronic diastolic heart failure Mixed hyperlipidemia Sinus bradycardia Other specified cardiac dysrhythmias Single vessel coronary artery disease Coronary atherosclerosis of unspecified type of vessel, osage or graft Anticoagulated Encounter for long-term (current) use of anticoagulants Shortness of breath Never smoked any substance BMI 28.0-28.9,adult documented in this encounter [facility] Work Phone: Evaluation note* Diagnosis Pacemaker- Primary Cardiac pacemaker in situ Persistent atrial fibrillation (Multi) Atrial fibrillation Essential hypertension, benign Diastolic heart failure, unspecified HF chronicity (Multi) High risk medication use BMI 28.0-28.9,adult 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 (Multi) Sinus bradycardia Other specified cardiac dysrhythmias Never smoked any substance documented in this encounter [facility] Work Phone: Evaluation note* Diagnosis Esophageal dysphagia- Primary Dysphagia, pharyngoesophageal phase [facility] Diagnosis Persistent atrial fibrillation (Multi)- Primary Atrial fibrillation Atrial flutter, unspecified type (Multi) High risk medication use Single vessel coronary artery disease Coronary atherosclerosis of unspecified type of vessel, osage or graft 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 (Multi) Pacemaker Cardiac pacemaker in situ Mixed hyperlipidemia Essential hypertension, benign Chronic diastolic heart failure Anticoagulated Encounter for long-term (current) use of anticoagulants BMI 28.0-28.9,adult Stage 3a chronic kidney disease (Multi) Shortness of breath Never smoked any substance documented in this encounter [facility] Work Phone: Evaluation note* Diagnosis Pacemaker Cardiac pacemaker in situ Sick sinus syndrome (Multi) Sinoatrial node dysfunction documented in this encounter [facility] Work Phone: Evaluation note* Diagnosis Pacemaker Cardiac pacemaker in situ Sick sinus syndrome (Multi) Sinoatrial node dysfunction Persistent atrial fibrillation (Multi) Atrial fibrillation High risk medication use 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 (Multi) Essential hypertension, benign Chronic diastolic heart failure BMI 27.0-27.9,adult Never smoked tobacco documented in this encounter [facility] Work Phone: Evaluation note* Diagnosis Esophageal dysphagia- [...] pacemaker in situ documented in this encounter [facility] Work Phone: Evaluation note* Diagnosis Acquired deformity of left toe- Primary Acquired deformity of right toe Pain due to onychomycosis of toenails of both feet documented in this encounter [facility]* Diagnosis High risk medication use- Primary Essential hypertension, benign Pacemaker Cardiac pacemaker in situ Persistent atrial fibrillation (Multi) Atrial fibrillation Anticoagulated Encounter for long-term (current) use of anticoagulants Shortness of breath documented in this encounter [facility] Work Phone: Evaluation note* Diagnosis Cellulitis of left foot- Primary Pain due to onychomycosis of toenails of both feet Acquired deformity of left toe Acquired deformity of right toe Foot ulcer, left, with fat layer exposed (HCC) documented in this encounter [facility]* Diagnosis Persistent atrial fibrillation (Multi)- Primary Atrial fibrillation Pre-op testing Unspecified pre-operative examination Persistent atrial fibrillation (Multi) Atrial fibrillation documented in this encounter [facility] Work Phone: Evaluation note* Diagnosis Cellulitis of left foot- Primary Acquired deformity of left toe Acquired deformity of right toe Exostosis of left foot documented in this encounter [facility] note* Diagnosis Onset Date Resolution Status Admit Date Acute hypoxic respiratory failure ac [place] May 18, 2025 11:58am Acute on chronic heart failu re with preserved ejection fraction (HFpEF) acute May 18, 2025 11:58am 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 acute May 182024 11:58am Primary hypertension acute Sept ember 2024 11:58am Chronic heart failure with preserved ejection fraction (HFpEF) resolved May 18, 2025 11:58am Paroxysmal atrial fibrillation resol phil May 18, 2025 11:58am ASHD (arteriosclerotic heart disease) inactive May 18, 2025 11:58am Chronic kidney disease inactive Se ptember 2024 11:58am Hypercholesterolemia inactive Sept ember 2024 11:58am [facility] Work Phone: Evaluation note* Diagnosis Persistent atrial fibrillation (Multi)- Primary Atrial fibrillation Pacemaker Cardiac pacemaker in situ Sick sinus syndrome (Multi) Sinoatrial node dysfunction Persistent atrial fibrillation (Multi) Atrial fibrillation documented in this encounter [facility] Work Phone: History and physical note Author Ángel Minaya [facility] Note Date/Time January 22, 2025 11:17 pm [facility] [address] [place] [address] Hospitalist H&P Signed Patient: Austin Golden MR#: [id number] : 1940 Acct:[id number] Age/Sex: 84 / F Adm Date: 5 Loc: ER Room: Type: [facility] ER Attending Dr: Copies to: MD Jazmin Connor DO Thomas D Kramer Jr, MD~ HPI DATE OF EXAMINATION: 01/22/25 CHIEF COMPLAINT: Shortness of breath HISTORY OF PRESENT ILLNESS: This is a 84-year-old female with significant past medical history of atrial fibrillation, CKD, coronary artery disease, anxiety, GERD, pulmonary hypertension, STONEY, hyperlipidemia, depression, hypertension, presented to [facility] ED with chief complaints of worsening [...] List clean-up per request of Phys. EHR [facility] History of cardiac pacemaker in situ Presbyesophagus [...] List clean-up per request of Phys. EHR [facility] Surgical History History of repair of hiatal [...] at the [facility] Medications and Allergies Allergies No Known [...] 01/22/25 20:54 MCV 89.4 fl (80-100) 01/22/25 20: MCH 30.9 pg (24.7-34.3) 01/22/25 20: MCHC 34.6 g/dL (32.0-35.0) 01/22/25 20: RDW 14.4 % (11.9-15.3) 01/22/25 20: Plt Count 240 x10E3/uL (150-450) 01/22/25 20: MPV 8.6 fl (6.3-10.7) 01/22/25 20: Neut % (Auto) 70.7 % (.) 01/22/25 20: Lymph % (Auto) 17.7 % (.) 01/22/25: [place] % (Auto) 7.9 % (.) 01/22/25: Eos % (Auto) 2.5 % (.) 01/22/25: Baso % (Auto) 1.2 % (.) 01/22/25: Nucleat RBC Rel Count 0.2 /100 WBC (0-0.5) 01/22/25: Neut # (Auto) 5.5 x10E3/uL (1.8-7.7) 01/22/25 20:54 Lymph # (Auto) 1.4 x10E3/uL (1.00-4.8) 01/22/25 20:54 [place] # (Auto) 0.6 x10E3/uL (0.0-0.8) 01/22/25 20: Eos # (Auto) 0.2 x10E3/uL (0.0-0.45) 01/22/25 20: Baso # (Auto) 0.1 x10E3/uL (0.0-0.2) 01/22/25: Monocyte Dist Width 20.85 % (0.00-20.00) H 01/22/25 20:54 PT 13.9 Seconds (9.0-12.9) H 01/22/25 20:54 INR 1.2 01/22/25 20: APTT 32.2 Seconds (25.1-36.5) 01/22/25 20:54 PHA [...] hypertension, STONEY, hyperlipidemia, depression, hypertension, presented to [facility] ED with chief complaints of worsening [...] 4 Documented By: Ángel Minaya MD 01/22/25 0262 Signed By: <Electronically signed by Ángel Minaya MD> 01/22/25 9364 [facility] Work Phone: History general Narrative - [...] no history of trauma and substance abuse [facility] Other History general Narrative - Reported* Type [...] and substance abuse Hospitalization History SEE SURGICAL [facility] Other History general Narrative - Reported* Type [...] substance abuse Hospitalization History SEE SURGICAL HX [facility] Other History of Present illness Narrative* Patient [...] testing * 6. Follow-up with pacemaker clinic [facility] 250 DO Work Phone: History of [...] the above has been addressed by her mold burner Dr. Mota. She reports she underwent esophageal [...] exercise and try to lose some weight [facility] 250 DO Work Phone: History [...] I reviewed her pacemaker check with her [facility] Work Phone: History of Present illness Narrative* [...] advised her to restrict her salt intake [facility] Work Phone: History of Present illness [...] advised her to restrict her salt intake [facility] Work Phone: History of Present illness [...] advised her to restrict her salt intake [facility] Work Phone: History of Present illness Narrative* Joseph Sepulveda, NICK - 04/30/2025 4:50 PM EDT Patient: Austin Golden : 1940 PCP: DO STEVE Galloway This is a 84 y.o. female that [...] by mouth Daily, Disp: , Rfl: HYDROcodone-acetaminophen ([place]) 10-325 MG tablet, 1 tablet, Disp: , [...] Resource Strain: Low Risk (03/21/2024) Received from [facility] Overall Financial Resource Strain (CARDIA) Difficulty of Paying Living Expenses: Not hard at all Food Insecurity: Not on file Transportation Needs: No Transportation Needs (03/24/2024) Received from [facility] PRAPARE - Transportation Lack of Transportation (Medical): No Lack of Transportation (Non-Medical): No Physical Activity: Not on file Stress: Not on file Social Connections: Not on file Intimate Partner Violence: Unknown (02/14/2024) Received from [facility] Safety & Environment Fear of Current or Ex-Partner: Not on file Emotionally Abused: Not on file Physically Abused: Not on file Sexually Abused: Not on file Physically or Sexually Abused: Not on file Housing Stability: Low Risk (03/21/2024) Received from [facility] Housing Stability Vital Sign Unable to Pay [...] Podiatry Joseph Sepulveda DPM [facility] Additional Instructions Speech therapy recommendations: *Take pills whole with water *Sit upright at 90 degrees during all oral intake *Sit upright for 30 minutes after meals and snacks Dietitian recommendations: *Boost plus, 1 container, [facility] Work Phone: Hospital Discharge instructions Additional Instructions You are scheduled for an EKG at /[facility] Office on 09/27/2022 at 1:00pm [facility] Work Phone: Progress note Author Jay Ceja [facility] September 02, 2022 2:42pm Note Date/Time September 02, 2022 1 :43pm [facility] [address] [place] [address] Hospitalist Progress Note Signed Patient: Austin Golden MR#: [id number] : 1940 Acct:[id number] Age/Sex: 81 / F Adm Date: 3 Loc: 4P Room: [address] [place] [address] Type: ADM IN Attending Dr: Jay Ceja [...] mg 09/01/22 20:29 Bisacodyl 10 Mg Supp.Rect ME 09/01/23 20:28 DAILY PRN Constipation Bisacodyl 10 [...] signed by Jay Ceja DO> 09/02/22 1442 [facility] Work Phone: Progress note Author Shilpa Fenton [facility] Note Date/Time July 01, 2024 3:17pm [facility] [address] [place] [address] Hospitalist Progress Note Signed Patient: Austin Golden MR#: [id number] : 1940 Acct:[id number] Age/Sex: 83 / F Adm Date: 4 Loc: 3T Room: [address] [place] [address] Type: ADM IN Attending Dr: Shilpa Fenton [...] Laboratory work up and Imaging studies reviewed gambling monitor - reviewed, remains in atrial fibrillation but [...] <Electronically signed by Shilpa Fenton MD> 07/01/24 0998 [facility] Work Phone: Progress note Author Shilpa Fenton [facility] Note Date/Time July 02, 2024 1:06pm [facility] [address] [place] [address] Hospitalist Progress Note Signed Patient: Austin Golden MR#: [id number] : 1940 Acct:[id number] Age/Sex: 83 / F Adm Date: 4 Loc: Room: [address] [place] [address] Type: ADM IN Attending Dr: Shilpa Fenton [...] Laboratory work up and Imaging studies reviewed gambling monitor - reviewed, remains in atrial fibrillation but [...] chest pain Documented By: Shilpa Fenton MD 07/02/241302 Signed By: <Electronically signed by Shilpa Fenton MD> 07/02/24 130 [facility] Work Phone: Progress note Author W Kwasi Dee [facility] Note Date/Time July 02, 2024 3:59pm [facility] [address] [place] [address] Cardiology Progress Note Signed Patient: Austin Golden MR#: [id number] : 1940 Acct:[id number] Age/Sex: 83 / F Adm Date: 4 Loc: 3T Room: [address] [place] [address] Type: ADM IN Attending Dr: Shilpa Fenton [...] catheterization performed earlier this year at [facility] revealing mild coronary disease and normal left [...] % (Auto) 72.9 Lymph % (Auto) 19.1 [place] % (Auto) 4.8 Eos % (Auto) 1.9 Baso % (Auto) 1.3 Nucleat RBC Rel Count 0.2 Neut # (Auto) 6.7 Lymph # (Auto) 1.7 [place] # (Auto) 0.4 Eos # (Auto) 0.2 [...] risk medication use: Code(s): Z79.899 - 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 therapy (3) Chronic heart failure [...] <Electronically signed by Javed Dee DO> 07/02/24 [facility]9 [facility] Work Phone: [facility] (narr[facility] Consultation (Routine) - Authorized Specialty Diagnoses / Procedures Referred By Ashtyn dobson Referred To Contact Cardiology Diagnoses 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) Pacemaker Sinus bradycardia Debbie Mac MD [address] [facility] [address] [place] [address] Referral ID Status Reason Start Date Expiration Date Visits Requested Visits Authorized [id number] Authorized Specialty Services Required 09/19/2023 09/18/2024 1 1 * Cardiovascular (Routine) - Authorized Specialty Diagnoses / Procedures Referred By Ashtyn dobson Referred To Contact Diagnoses Persistent atrial fibrillation (CMS/HCC) Procedures ECG 12 Lead Debbie Mac MD [address] [facility] [address] [place] [address] Referral ID Status Reason Start Date Expiration Date V isits Requested Visits Authorized [id number] Authorized 09/19/2023 09/18/2024 1 1 * Consultation (Routine) - Authorized Specialty Diagnoses / Procedures Referred By Ashytn odbson Referred To Contact Cardiology Diagnoses Persistent atrial fibrillation (CMS/HCC) 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) Chronic diastolic heart failure (CMS/HCC) Procedures Follow Up In Cardiology Debbie Mac MD [address] [facility] [address] [place] [address] Debbie Mac MD [address] [facility] [address] [place] [address] Referral ID Status Reason Start Date Expiration Date V isits Requested Visits Authorized [id number] Authorized 09/19/2023 09/18/2024 1 1 [facility] Work Phone: Reason for referral (narrative)* Tests/Procedures (Routine) - Authorized Specialty Diagnoses / Procedures Referred By Ashtyn dobson Referred To Contact Gastroenterology Diagnoses Esophageal dysphagia Katie Yung MD [address] [place] [address] [facility] ENDOSCOPY [address] [place], [place] [id number] Referral ID Status Reason Start Date Expiration Date Visits Requested Visits Authorized [id number] Authorized Consultatio n-[facility] 05/15/2024 05/15/2025 1 1 Scheduling Instructions [facility] Division of Gastroenterology [address] [address] ESOPHAGEAL MANOMETRY WHAT IS ESOPHAGEAL MANOMETRY? Esophageal [...] may eat once you get home. LOCATION: [facility] Suite located at [address] [place] [address]. - Plan to arrive at least 60 minutes before your scheduled procedure. Please also plan extra time for parking and shuttle service. - Bring your photo ID, insurance card, and medication insurance card. - Parking is available in the [facility] [facility] accessible from [facility]. - 12/03 shuttle service from the garage to [facility] is available. - Go to the ground floor of the parking garage to reach the shuttle pick-up station located near the elevator and stairs. - Shuttle service will drop you off at [facility] Main Entrance. - Explosives Handler service is available at [facility] Main Entrance if you would prefer compliance counsel over parking ([facility] Explosives Handler Service Hours: Sunday-Sunday, 5:30am- 8:00pm). - Enter [facility] Main Entrance and go to the Admitting/Registration Desk to check in for your procedure. - The Endoscopy department is located on the 1st floor of [facility]. Please call [phone] Sunday-Sunday, 7:00am-6:00pm if you have any pre- procedural questions. If you are calling AFTER HOURS, please call [phone] to speak to the [facility] Nurse oim consultant. If you need to cancel this appointment prior to the scheduled date, please call the Endoscopy call center at [phone] at least 48 hours before the appointment/procedure time. Test Date: Test Time: We make every attempt to maintain our schedule, however, it is not always possible. Some procedures may take longer than others and our cases are scheduled to follow one another. We apologize for any delays. For any questions before your appointment, please call [phone] or [phone]. To cancel or change your appointment please call the Gastroenterology scheduling line at [phone]. [facility] for referral (narrative)* Consultation (Routine) - Authorized Specialty Diagnoses / Procedures Referred By Contac t Referred To Contact Cardiology Diagnoses High risk medication use Pacemaker Anticoagulation management encounter Longstanding persistent atrial fibrillation (Multi) Sinus bradycardia BMI 28.0-28.9,adult Never smoked any substance Procedures Follow Up In Cardiology Maxwell Medrano MD [address] [place] [address] Referral ID Status Reason Start Date Expiration Date V isits Requested Visits Authorized [id number] Authorized 04/17/2024 04/17/2025 1 1 * Consultation (Routine) - Authorized Specialty Diagnoses / Procedures Referred By Contac t Referred To Contact Cardiology Diagnoses High risk medication use Pacemaker Anticoagulation management encounter Longstanding persistent atrial fibrillation (Multi) Sinus bradycardia BMI 28.0-28.9,adult Never smoked any substance Procedures Follow Up In Cardiology Maxwell Medrano MD [address] [place] [address] Referral ID Status Reason Start Date Expiration Date V isits Requested Visits Authorized [id number] Authorized 04/17/2024 04/17/2025 1 1 * Cardiovascular (Routine) - Authorized Specialty Diagnoses / Procedures Referred By Contac t Referred To Contact Diagnoses High risk medication use Procedures ECG 12 lead (Clinic Performed) Maxwell Medrano MD [address] [place] [address] Referral ID Status Reason Start Date Expiration Date V isits Requested Visits Authorized [id number] Authorized 04/17/2024 04/17/2025 1 1 [facility] Work Phone: Reason for referral (narrative)* Consultation (Routine) - Authorized Specialty Diagnoses / Procedures Referred By Ashtyn dobson Referred To Contact Cardiology Diagnoses Pacemaker Persistent atrial fibrillation (Multi) Essential hypertension, benign Diastolic heart failure, unspecified HF chronicity (Multi) High risk medication use BMI 28.0-28.9,adult 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 (Multi) Sinus bradycardia Never smoked any substance Procedures Follow Up In Cardiology Maxwell Medrano MD [address] [address] Referral ID Status Reason Start Date Expiration Date V isits Requested Visits Authorized [id number] Authorized 04/28/2024 04/28/2025 1 1 [facility] Work Phone: [place] for referral (narrative)No reason for referral information [facility] Work Phone: Reason for visit Narrative* Diagnostic X-Ray (Routine) - Closed Specialty Diagnoses / Procedures Referred By Ashtyn dobson Referred To Contact Radiology Diagnoses Esophageal dysphagia Procedures FL BARIUM SWALLOW DOUBLE CNTRST FL BARIUM SWALLOW SINGL CNTRST Katie Yung MD [address] [place] [address] Phone: tel: fax: [facility] [address] [place] [address] Phone: tel: Referral ID Status Reason Start Date Expiration Date Visits Re quested Visits Authorized [id number] Closed 06/19/2024 06/19/2025 1 1 [facility] Imaging (Routine) - Pending Review Specialty Diagnoses / Procedures Referred By Ashtyn dobson Referred To Contact Cardiology Diagnoses Pacemaker Sick sinus syndrome (Multi) Procedures Cardiac Device Check - Remote Maxwell Medrano MD [address] [address] Phone: tel: fax: Referral ID Status Reason Start Date Expiration Date Visits Requested Visits Authorized [id number] Pending Review Perform Procedure 09/08/2024 09/08/2025 52 52 [facility] Work Phone: Reason for visit Narrative* Imaging (Routine) - Pending Review Specialty Diagnoses / Procedures Referred By Contac t Referred To Contact Cardiology Diagnoses Pacemaker Procedures Cardiac Device Check - Remote Maxwell Medrano MD [address] [address] Phone: tel: fax: Referral ID Status Reason Start Date Expiration Date Visits Requested Visits Authorized [id number] Pending Review Perform Procedure 10/23/2024 10/23/2025 52 52 [facility] Work Phone: Reason for visit Narrative* Imaging (Routine) - Authorized Specialty Diagnoses / Procedures Referred By Awaac t Referred To Contact Radiology Diagnoses Persistent atrial fibrillation (Multi) Procedures CT angio chest pre pulmonary vein ablation planning gated CT heart structure morphology congenital heart disease w IV contrast Maxwell Medrano MD [address] [address] Phone: tel: fax: Referral ID Status Reason Start Date Expiration Date Visits Requested Visits Authorized [id number] Authorized Perform Procedure 10/23/2024 10/23/2025 1 1 [facility] Work Phone: Reason for visit Narrative* Imaging (Routine) - Pending Review Specialty Diagnoses / Procedures Referred By Awaac t Referred To Contact Cardiology Diagnoses Pacemaker Sick sinus syndrome (Multi) Procedures Cardiac Device Check - Remote Maxwell Medrano MD [address] [address] Phone: tel: fax: Referral ID Status Reason Start Date Expiration Date Visits Requested Visits Authorized [id number] Pending Review Perform Procedure 05/19/2025 05/19/2026 52 52 [facility] Work Phone: Summary Purpose Family History No [...] 2024 3:33pm Hospital Course Note MR#: [id number] [facility] Pt. Name: Austin Golden Admitted: 07/26/2020 [...] order sent to [facility] for pft ast tsh onlyAUSTIN GOLDEN [...] She was recently in the hospital at [facility] for Afib and was taken off Metoprolol [...] hospital follow up R11.2 Amb Documentation [facility], Conversion/ 4 month f/u Reason for Visit [...] hospital follow up R11.2 Amb Documentation [facility], Conversion/ 4 month f/u trouble vomiting Reason [...] hospital follow up R11.2 Amb Documentation [facility], Conversion/ 4 month f/u trouble vomiting z79.899 [...] hospital follow up R11.2 Amb Documentation [facility], Conversion/ 4 month f/u trouble vomiting z79.899 [...] disease) Vomiting Chief Complaint Amb Documentation [facility], Conversion/ 4 month f/u trouble vomiting z79.899 [...] reflux disease) Chief Complaint Amb Documentation [facility], Conversion/ 4 month f/u trouble vomiting z79.899 [...] chronic kidney disease Chief Complaint Admit Date [place], Conversion/ 4 month f/u Augus t 2023 [...] 08 11:45am Stage 3a chronic kidney disease [facility] 2023 11:45am Dyspepsia May 19, 2024 9:22am [...] 2024 5:45pm Chief Complaint Admit Date [facility], Conversion/ 4 month f/u Augus t 2023 [...] 2024 11:45am GERD (gastroesophageal reflux disease) [facility] 2023 11:45am Paroxysmal atrial fibrillation May 08, 2024 11:45am Primary hypertension May 08 11:45am Stage 3a chronic kidney disease [facility] 2023 11:45am Dyspepsia May 19, 2024 9:22am [...] 2024 11:45am GERD (gastroesophageal reflux disease) S [facility] 2023 11:45am Paroxysmal atrial fibrillation May 08, 2024 11:45am Primary hypertension May 08 11:45am Stage 3a chronic kidney disease [facility] 2023 11:45am Dyspepsia May 19, 2024 [...] N Stemi July 23, 2024 1 2:56pm [facility] follow up-HIGH RISK July 31, 2024 11:23am Fall on 08/22:Hurt R Side-HIGH RISK Wenceslaor kendall 2024 2:04pm Reason for Visit Admit [...] N Stemi July 23, 2024 1 2:56pm [facility] follow up-HIGH RISK July 31, 2024 11:23am [...] N Stemi July 23, 2024 1 2:56pm [facility] follow up-HIGH RISK July 31, 2024 11:23am [...] N Stemi July 23, 2024 1 2:56pm [facility] follow up-HIGH RISK July 31, 2024 11:23am [...] N Stemi July 23, 2024 1 2:56pm [facility] follow up-HIGH RISK July 31, 2024 11:23am Fall on 08/22:Hurt R Side-HIGH RISK Auguar 2024 2:04pm cervical pain, thoracic pain August 12:14pm chest pain/cough September 09, 2024 3 :04pm Chronic Kidney Disease September 11 12:51pm Difficulty Breathing & R Side Pain Augua 2024 11:10am Chief Complaint Admit Date Wellness-HIGH RISK July 09, 2024 2:54pm N Stemi July 21, 2024 9 :28pm N Stemi July 23, 2024 1 2:56pm [facility] follow up-HIGH RISK July 31, 2024 11:23am [...] 09, 2024 3:04pm ASHD (arteriosclerotic heart disease) [facility] 2024 3:04pm Atrial fibrillation September 09, 2024 [...] 2025 2: 26pm GERD (gastroesophageal reflux disease) Elvira tang 2024 2:26pm Hypercholesterolemia January 09, 2025 2:26 pm 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 January 09, 2025 2:26pm Primary hypertension January 09, 2025 2:26 pm Chronic heart failure with preserved eje ction fraction (HFpEF) January 09, 2025 2:26pm Paroxysmal atrial fibrillation January 09, 2025 2:26pm ASHD (arteriosclerotic heart disease) Ju 2024 1:35pm Cellulitis of left leg without [...] Referral Specialty Diagnoses / Procedures Referred By Contleonides t Referred To Contact Diagnoses Atrial flutter, unspecified type (Multi) Procedures ECG 12 Lead Debbie Mca MD [address] [facility] [address], [address] [place] [address] Referral ID Status Reason Start Date Expiration Date V isits Requested Visits Authorized [id number] Authorized 04/24/2024 04/24/2025 1 1 Specialty Diagnoses / Procedures Referred By Contac t Referred To Contact Cardiology Diagnoses Atrial flutter, unspecified type (Multi) Procedures Follow Up In Cardiology Debbie Mac MD [address] [facility] 2, [address] [place] [address] Debbie Mac MD [address] [facility] [address], [address] [place] [address] Referral ID Status Reason Start Date Expiration Date V isits Requested Visits Authorized [id number] Authorized 04/24/2024 04/24/2025 1 1 Specialty Diagnoses / Procedures Referred By Contac t Referred To Contact Diagnoses High risk medication use Procedures ECG 12 Lead Maxwell Medrano MD [address] [address] Referral ID Status Reason Start Date Expiration Date V isits Requested Visits Authorized [id number] Authorized 02/28/2024 02/27/2025 1 1 Specialty Diagnoses / Procedures Referred By Contac t Referred To Contact Cardiology Diagnoses High risk medication use Diastolic heart failure, unspecified HF chronicity (Multi) Abnormal EKG Anticoagulation management encounter Longstanding persistent atrial fibrillation (Multi) Sinus bradycardia Pacemaker BMI 30.0-30.9,adult Never smoked tobacco Procedures Follow Up In Cardiology Maxwell Medrano MD [address] [facility] [address] [place] [address] Referral ID Status Reason Start Date Expiration Date V isits Requested Visits Authorized [id number] Authorized 02/28/2024 02/27/2025 1 1 Specialty Diagnoses / Procedures Referred By Contac t Referred To Contact Anesthesiology Diagnoses Esophageal dysphagia Katie Yung MD [address] [place] [address] [place] [address] [facility] PRE ADMISSION TESTING [address] [place] [address] Referral ID Status Reason Start Date Expiration Date V isits Requested Visits Authorized [id number] Authorized 05/15/2024 05/15/2025 1 1 Scheduling Instructions Your surgical team will reach out to you to schedule a pre-admission testing appointment. Question Answer Reason for consult? Recommended PAT Risk Score Specialty Diagnoses / Procedures Referred By Ashtyn t Referred To Contact Cardiology Diagnoses Chronic diastolic heart failure (CMS/HCC) Essential hypertension, benign Dyspnea, unspecified type Procedures Transthoracic Echo (TTE) Complete ME ECHO TRANSTHORC R-T 2D W/WO M-MODE REC F-UP/LMTD ME DOP ECHOCARD COLOR FLOW VELOCITY MAPPING ME DOP ECHOCARD PULSE WAVE W/SPECTRAL F-UP/LMTD STD Debbie Mac MD [address] [place] [address] 2, [address] [address] [facility] [address] [place] [phone] Referral ID Status Reason Start Date Expiration Date Visits Requested Visits Authorized [id number] Pending Review Perform Procedure 11/27/2023 1 1 Specialty Diagnoses / Procedures Referred By Ashtyn dobson Referred To Contact Cardiology Diagnoses Persistent atrial fibrillation (CMS/HCC) 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) Chronic diastolic heart failure (CMS/HCC) Essential hypertension, benign Procedures Follow Up In Cardiology Debbie Mac MD [address] [facility] 2, [address] [address] Referral ID Status Reason Start Date Expiration Date V isits Requested Visits Authorized [id number] Authorized 05/31/2023 11/27/2023 1 1 Specialty Diagnoses / Procedures Referred By Ashtyn t Referred To Contact Diagnoses Persistent atrial fibrillation (CMS/HCC) 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) Procedures ECG 12 Lead Debbie Mac MD [address] [facility] 2, Eduardo [address] [place] [address] Referral ID Status Reason Start Date Expiration Date V isits Requested Visits Authorized [id number] Pending Review 05/31/2023 11/27/2023 1 1 Additional Source Comments INFORMATION SOURCE (unrecogn ized section and content) DATE CREATED AUTHOR 08/08/2020 [facility] DATE CREATED AUTHOR AUTHOR'S ORGANIZ ATION 10/10/2021 [facility] DATE CREATED AUTHOR AUTHOR'S ORGANIZ ATION 12/28/[address] [facility] DATE CREATED AUTHOR AUTHOR'S ORGANIZ ATION 01/04/2023 [facility] DATE CREATED AUTHOR AUTHOR'S ORGANIZ ATION 01/30/2023 [facility] DATE CREATED AUTHOR AUTHOR'S ORGANIZ ATION 03/23/2024 [facility] DATE CREATED AUTHOR AUTHOR'S ORGANIZ ATION 03/31/2024 [facility] DATE CREATED AUTHOR AUTHOR'S ORGANIZ ATION 10/16/2024 [facility] DATE CREATED AUTHOR AUTHOR'S ORGANIZ ATION 01/06/2025 [facility] DATE CREATED AUTHOR AUTHOR'S ORGANIZ ATION 04/30/2025 [facility] DATE CREATED AUTHOR AUTHOR'S ORGANIZ ATION 05/01/2025 [facility] DATE CREATED AUTHOR AUTHOR'S ORGANIZ ATION 05/07/2025 [facility] DATE CREATED AUTHOR AUTHOR'S ORGANIZ ATION 05/09/2025 [facility] EPIC DATE CREATED AUTHOR AUTHOR'S ORGANIZ ATION 05/24/2025 [facility] Care Teams (unrecognized sec tion and content) [...] 2025 Team Status: Inactive Member Role Status Roberto [...] العلي , DO Primary Care Provider Active Start: March 21, 2024 Juanito Barragan , DO Attending Provider Active S tart: March 21, 2024 Team Status: Active Member Role Status Jazmin العلي , DO Primary Care Provide r, Attending Provider Active Start: March 21, 2024 Team Status: Active Member Role Status Jazmin العلي , DO Primary Care Provider Active Start: March [...] Luis Lennon , DO Emergency Provider Active Jayyaritza Paizm , DO Admit Provider Active Anival Easton MD Attending Provider Active Team Status: Active Member Role Status Jazmin العلي , DO Primary Care Provider Active Indy Rolon PA-C Emergency Provider Active Jay Daylinoom , DO Admit Provider, Attending Pr ovider Active Team Status: Inactive Member Role Status Jazmin العلي , DO Primary Care Provider Active FEROZ Cuevas-C Emergency Provider Active Jay Lindbloom , DO Admit Provider Active Stephanie Bennett [...] MD Other Provider Active Cristiana Chapa , [facility] Other Provider Active Yessy Ackerman MD Other Provider Active Katie Dukes , Attending Provider Active Team Status: Inactive Member Role Status Dates Jazmin العلي , DO Primary Care Provider, Attending Pr ovider Active Team Status: Inactive Member Role Status Dates Jazmin العلي , Primary Care Provider Active Wilbur Watson DO Attending Provider Active Director Of Operations Relationship Specialty Start Date End Date Jazmin العلي, DO [address] [facility] [place] [address] PCP - General 08/20/99 Director Of Operations Relationship Specialty Start Date End Date Jazmin العلي, DO [address] [place] [address] PCP - General Internal Medicine 08/09/23 Director Of Operations Relationship Specialty Start Date End Date Jazmin العلي, DO [address] [place] [address] PCP - General Internal Medicine 08/09/23 Team [...] Attending Provider Active Start: 2023 End: 2023 Director Of Operations Relationship Specialty Start Date End Date Jazmin العلي DO [address] [place] [address] PCP - General Internal Medicine 08/09/23 Debbie Mac MD [address] [facility] 2, [address] [place] [address] Consulting Physician Cardiology 09/10/23 Team Status: Inactive [...] Pedro MD Other Provider Active Start: M 2023 Cristiana Chapa [facility] Other Provider Active Sta rt: January [...] MD Other Provider Active Start: 2023 End: January 20, 2024 Anoop Zhang MD Other Provider Active Start: January 18, 2024 End: January 20, 2024 Isra Pedro MD Other Provider Active Start: 2023 End: January 20, 2024 NAY WhitmanABI Other Provider Active Sta rt: January 18, 2024 End: January 20, 2024 Director Of Operations Relationship Specialty Start Date End Date Jazmin العلي DO [address] [place] [address] PCP - General Internal Medicine 08/09/23 Debbie Mac MD [address] [place] [address], [address] [address] Consulting Physician Cardiology 09/10/23 Team Status: Active [...] Attending Provider Active Start: February 07, 2024 Director Of Operations Relationship Specialty Start Date End Date Jazmin العلي DO [address] [place] [address] PCP - General Internal Medicine 08/09/23 Debbie Mac MD [address] [place] [address], [address] [address] Consulting Physician Cardiology 09/10/23 Maxwell Medrano MD [address] [place] [address] Consulting Physician Cardiology 02/13/24 Team Status: Inactive [...] Provider Active Start: N ov2023 Cristiana Chapa [facility]- Other Provider Active Sta rt: July [...] Provider Active Start: N 2023 Cristiana Chapa , [facility] Other Provider Active Sta rt: July 02, [...] July 09, 2024 End: July 09, 2024 Director Of Operations Relationship Specialty Start Date End Date Jazmin العلي DO [address] [place] [address] PCP - General Internal Medicine 08/09/23 Debbie Mac MD [address] [place] [address] [address], [facility] [address] [place] [address] Consulting Physician Cardiology 09/10/23 Maxwell Medrano MD [address] [place] [address] [address] [place] [address] Consulting Physician Cardiology 02/13/24 Director Of Operations Relationship Specialty Start Date End Date Katie Yung MD [address] [place] [address] [place] [address] Physician Gastroenterology 07/26/24 Director Of Operations Relationship Specialty Start Date End Date Jazmin العلي DO [address] [place] [address] PCP - General Internal Medicine 08/09/23 Debbie Mac MD [address] [facility] 2, [facility] [address] [place] [address] Consulting Physician Cardiology 09/10/23 Maxwell Medrano MD [address] [place] [address] Consulting Physician Cardiology 02/13/24 Director Of Operations Relationship Specialty Start Date End Date Jazmin العلي DO [address] [place] [address] PCP - General Internal Medicine 08/09/23 Debbie Mac MD [address] [place] [address] 2, [facility] [address] [place] [address] Consulting Physician Cardiology 09/10/23 Maxwell Medrano MD [address] [place] [address] Consulting Physician Cardiology 02/13/24 Director Of Operations Relationship Specialty Start Date End Date Jazmin العلي DO [address] [place] [address] PCP - General Internal Medicine 08/09/23 Debbie Mac MD [address] [place] [address] 2, [facility] [address] [place] [address] Consulting Physician Cardiology 09/10/23 Maxwell Medrano MD [address] [place] [address] Consulting Physician Cardiology 02/13/24 Sasha Sepulveda, forensic toxicologistInspector Boiler 03/28/24 Director Of Operations Relationship Specialty Start Date End Date Jazmin العلي DO [address] [place] [address] PCP - General Internal Medicine 08/09/23 Debbie Mac MD [address] [facility] 2, [facility] [address] [place] [address] Consulting Physician Cardiology 09/10/23 Maxwell Medrano MD [address] [place] [address] Consulting Physician Cardiology 02/13/24 Sasha Sepulveda RN Care Inspector Boiler 03/28/24 Director Of Operations Relationship Specialty Start Date End Date Jazmin العلي DO [address] [place] [address] PCP - General Internal Medicine 08/09/23 Debbie Mac MD [address] [place] [address] 2, [address] [address] Consulting Physician Cardiology 09/10/23 Maxwell Medrano MD [address] [place] [address] Consulting Physician Cardiology 02/13/24 Sasha Sepulveda RN Care Inspector Boiler 03/28/24 04/28/24 Director Of Operations Relationship Specialty Start Date End Date Katie Yung MD [address] [place] [address] [place] [address] Physician Gastroenterology 07/26/24 Team Status: Active Member [...] Pedro MD Other Provider Active Start: D ec2023 End: July 24, 2024 Cristiana Chapa [facility]- Other Provider Active Sta rt: July 21, [...] Provider Active Star t: July 23, 2024 W Kwasi Dee DO Other Provider Active Start : July 23, 2024 Jimena Smith MD Other Provider Active Start: July 23, 2024 Christopher Richardson MD Other Provider Active Start: July 23, 2024 Debbie Mca MD Other Provider Active St art: July 23, 2024 Kenny Porter MD Other Provider Active Start: July 23, 2024 Dee Quach APRN Other Provider Active Start : July 23, 2024 Bety Haile MD Other Provider Active Start: D ec2023 Anoop Zhang MD Other Provider Active Start: July 23, 2024 Isra Pedro MD Other Provider Active Start: D ec2023 Cristiana Chapa , [facility] Other Provider Active Sta rt: July 23, [...] August 27, 2024 End: August 27, 2024 Director Of Operations Relationship Specialty Start Date End Date Jazmin العلي DO [address] [place] [address] PCP - General Internal Medicine 08/09/23 Debbie Mac MD [address] [place] [address] [address], [facility] [address] [place] [address] Consulting Physician Cardiology 09/10/23 Maxwell Medrano MD [address] [place] [address] [address] [place] [address] Consulting Physician Cardiology 02/13/24 Team Status: Inactive Member Role Status Dates Jazmin العلي DO Primary Care Provider Active Start: September 05, 2024 End: September 05, 2024 Yesica Astudillo MD Attending Provider Active Start: September 05, 2024 End: September 05, 2024 Director Of Operations Relationship Specialty Start Date End Date Jazmin العلي DO [address] [place] [address] PCP - General Internal Medicine 08/09/23 Debbie Mac MD [address] [place] [address] 2, [address] [place] [address] Consulting Physician Cardiology 09/10/23 Maxwell Medrano MD [address] [place] [address] [address] [place] [address] Consulting Physician Cardiology 02/13/24 Team Status: Inactive [...] October 06, 2024 End: October 06, 2024 Director Of Operations Relationship Specialty Start Date End Date Katie Yung MD [address] [place] [address] [place] [address] Physician Gastroenterology 07/26/24 Director Of Operations Relationship Specialty Start Date End Date Katie Yung MD [address] [facility] [place] [address] Physician Gastroenterology 07/26/24 Director Of Operations Relationship Specialty Start Date End Date Katie Yung MD [address] [facility] [place] [address] Physician Gastroenterology 07/26/24 Director Of Operations Relationship Specialty Start Date End Date Katie Yung MD [address] [facility] [place] [address] Physician Gastroenterology 07/26/24 Director Of Operations Relationship Specialty Start Date End Date Katie Yung MD [address] [facility] [place] [address] Physician Gastroenterology 07/26/24 Team Status: Inactive Member [...] January 22, 2025 End: January 23, 2025 Director Of Operations Relationship Specialty Start Date End Date Jazmin العلي DO [address] [place] [address] PCP - General Internal Medicine 08/09/23 Debbie Mac MD [address] [place] [address] [address], [facility] [address] [place] [address] Consulting Physician Cardiology 09/10/23 Maxwell Medrano MD [address] [place] [address] [address] [place] [address] Consulting Physician Cardiology 02/13/24 Director Of Operations Relationship Specialty Start Date End Date Jazmin العلي DO [address] [place] [address] PCP - General Internal Medicine 02/14/23 Director Of Operations Relationship Specialty Start Date End Date Jazmin العلي DO [address] [place] [address] PCP - General Internal Medicine 02/14/23 Director Of Operations Relationship Specialty Start Date End Date Jazmin العلي DO [address] [place] [address] PCP - General Internal Medicine 02/14/23 Director Of Operations Relationship Specialty Start Date End Date Jazmin العلي DO [address] [place] [address] PCP - General Internal Medicine 02/14/23 Director Of Operations Relationship Specialty Start Date End Date Jazmin العلي DO [address] [place] [address] PCP - General Internal Medicine 08/09/23 Debbie Mac MD [address] [place] [address] 2, [facility] [address] [place] [address] Consulting Physician Cardiology 09/10/23 Maxwell Medrano MD [address] [place] [address] [address] [place] [address] Consulting Physician Cardiology 02/13/24 Director Of Operations Relationship Specialty Start Date End Date Jazmin العلي DO [address] [place] [address] PCP - General Internal Medicine 02/14/23 Director Of Operations Relationship Specialty Start Date End Date Jazmin العلي DO [address] [place] [address] PCP - General Internal Medicine 02/14/23 Team [...] May 18, 2025 End: May 18, 2025 Director Of Operations Relationship Specialty Start Date End Date Jazmin العلي DO [address] [place] [address] PCP - General Internal Medicine 08/09/23 Debbie Mac MD [address] [facility] 2, [facility] [address] [place] [address] Consulting Physician Cardiology 09/10/23 Maxwell Medrano MD [address] [facility] [address] [place] [address] Consulting Physician Cardiology 02/13/24 Goals (unrecognized section [...] ECG 12 Lead Debbie Mac MD [address] [facility] 2, [facility] [address] [place] [address] Referral ID Status Reason Start Date Expiration Date V isits Requested Visits Authorized [id number] Pending Review 05/31/2023 11/27/2023 1 1 Specialty Diagnoses / Procedures Referred By Ashtyn dobson Referred To Contact Cardiology Diagnoses Chronic diastolic heart failure (CMS/HCC) Essential hypertension, benign Dyspnea, unspecified type Procedures Transthoracic Echo (TTE) Complete ME ECHO TRANSTHORC R-T 2D W/WO M-MODE REC F-UP/LMTD ME DOP ECHOCARD COLOR FLOW VELOCITY MAPPING ME DOP ECHOCARD PULSE WAVE W/SPECTRAL F-UP/LMTD STD Debbie Mac MD [address] [place] [address] 2, [address] [address] [address] [place] [phone] Referral ID Status Reason Start Date Expiration Date Visits Requested Visits Authorized [id number] Authorized Perform Procedure 11/27/2023 1 1 Reason Comments Follow-up 4 month Specialty Diagnoses / Procedures Referred By Ashtyn dobson Referred To Contact Cardiology Diagnoses Persistent atrial fibrillation (CMS/HCC) 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) Chronic diastolic heart failure (CMS/HCC) Essential hypertension, benign Procedures Follow Up In Cardiology Debbie Mac MD [address] [place] [address], [address] [address] Referral ID Status Reason Start Date Expiration Date V isits Requested Visits Authorized [id number] Authorized 05/31/2023 11/27/2023 1 1 Reason Comments ekg visit Specialty Diagnoses / Procedures Referred By Ashtyn dobson Referred To Contact Diagnoses Dyspnea, unspecified type Persistent atrial fibrillation (Multi) Procedures ECG 12 Lead Debbie Mac MD [address] [place] [address], [address] [address] Referral ID Status Reason Start Date Expiration Date V isits Requested Visits Authorized [id number] Authorized 01/17/2024 01/16/2025 1 1 Reason Comments Follow-up Specialty Diagnoses / Procedures Referred By Ashtyn dobson Referred To Contact Cardiology Diagnoses Pacemaker Persistent atrial fibrillation (Multi) Essential hypertension, benign Diastolic heart failure, unspecified HF chronicity High risk medication use BMI 28.0-28.9,adult 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 (Multi) Sinus bradycardia Never smoked any substance Procedures Follow Up In Cardiology Maxwell Medrano MD [address] [place] [address] Phone: tel: fax: Referral ID Status Reason Start Date Expiration Date V isits Requested Visits Authorized [id number] Authorized 04/28/2024 04/28/2025 1 1 Reason Onset [...] Procedures Follow Up In Cardiology Cristiana Chapa, SOLAR [employer]OT[employer]S ENGINEER-[employer]ICK PLATE INSTALLER [address] [place] [address] Phone: tel: fax: Maxwell Medrano MD [address] [place] [address] Phone: tel: fax: Referral ID Status Reason Start Date Expiration Date V isits Requested Visits Authorized [id number] Authorized 07/07/2024 07/07/2025 1 1 Reason Onset Date Comments Update 07/21/2024 Reason Onset Date Comments No Show 07/29/2024 Reason Comments Hospital Follow-up [facility] discharge 02/07-afib Specialty Diagnoses / Procedures Referred By Contac t Referred To Contact Diagnoses Persistent atrial fibrillation (Multi) Procedures ECG 12 Lead Debbie Mac MD [address] [facility] 2, [facility] [address] [place] [address] Referral ID Status Reason Start Date Expiration Date V isits Requested Visits Authorized [id number] Authorized 02/25/2024 02/24/2025 1 1 Reason Comments Follow-up Specialty Diagnoses / Procedures Referred By Contac t Referred To Contact Diagnoses High risk medication use Procedures ECG 12 Lead Maxwell Medrano MD [address] [place] [address] Referral ID Status Reason Start Date Expiration Date V isits Requested Visits Authorized [id number] Authorized 02/28/2024 02/27/2025 1 1 Reason Comments Hospital Follow-up CARDIOVERSION 03/25/24 Specialty Diagnoses / Procedures Referred By Contac t Referred To Contact Diagnoses High risk medication use Procedures ECG 12 lead (Clinic Performed) Maxwell Medrano MD [address] [facility] [address] [place] [address] Referral ID Status Reason Start Date Expiration Date V isits Requested Visits Authorized [id number] Authorized 04/17/2024 04/17/2025 1 1 Reason Comments Follow-up 4 months Specialty Diagnoses / Procedures Referred By Awa[place] t Referred To Contact Cardiology Diagnoses Essential hypertension, benign Procedures Follow Up In Cardiology Debbie Mac MD [address] [place] [address] 2, [address] [address] Debbie Mac MD [address] [place] [address] 2, [address] [address] Referral ID Status Reason Start Date Expiration Date V isits Requested Visits Authorized [id number] Authorized 11/28/2023 11/27/2024 1 1 Reason Comments Follow-up 2 WEEK Reason Comments Swallowing problems Reason Comments Follow-up [facility] Specialty Diagnoses / Procedures Referred By Ashtyn t Referred To Contact Diagnoses Persistent atrial fibrillation (Multi) Procedures ECG 12 Lead Debbie Mac MD [address] [place] [address] [address], [address] [address] Phone: tel: fax: Referral ID Status Reason Start Date Expiration Date V isits Requested Visits Authorized [id number] Authorized 09/05/2024 09/05/2025 1 1 Reason Comments [...] atrial fibrillation (Multi) Procedures ECG 12 Lead BarbyCristiana hoff, SOLAR PHOTOV[employer]IC SYSTEMS ENGINEER-KICK PLATE INSTALLER [address] [facility] [address] [place] [address] Phone: tel: fax: Referral ID Status Reason Start Date Expiration Date V isits Requested Visits Authorized [id number] Authorized 02/23/2025 02/23/2026 1 1 Reason Onset [...] BE BASED ON THE PRIMARY CLINICAL RECORDS. [facility] [employer] [facility]. provides no warranty or guarantee of the accuracy or completeness of information in this document.
[2025-05-25] MEDS: HYDROCODONE/ACET 5-325 MG TABLET 2 TAB PO (22:10)
--- NOTE | 2025-05-25 22:18 | PC.NURSE ---
i gave this patient verbal and written discharge orders along with 2 tbs take home medication and this patient voices yes to understanding these. at time of discharge this patient voices no concerns, needs and shows no signs of distress
== END 2025-05-25 22:17 | disposition home or self-care (01) ==
PROVIDERS: Emergency Provider Internal Medicine; PCP Internal Medicine
DX: S09.90XA Unspecified injury of head, initial encounter (principal); S29.012A Strain of muscle and tendon of back wall of thorax, initial encounter; S00.83XA Contusion of other part of head, initial encounter; M79.7 Fibromyalgia; W01.0XXA Fall on same level from slipping, tripping and stumbling without subsequent striking against object, initial encounter
CPT/HCPCS: 70450; 70486; 72125; 72128; 72131; 76376; 99284

== ENCOUNTER 2025-05-29 20:24 | Emergency (ER) | payer OTHER, SELFPAY ==
[2025-05-29] VITALS (33 sets, daily range): BP systolic 116–159; BP diastolic 71–109; PULSE 82–111; RESP 12; TEMP 37.7; O2SAT 86–98; BMI 26.3
--- NOTE | 2025-05-29 20:27 | ED.GENADUL1 ---
Documented by User: FEROZ Humphrey 05/29/25 22:08 HPI HPI - General Adult General Chief complaint: Shortness of Breath/Dyspnea Stated complaint: OTHER Time Seen by Provider: 05/29/25 20:25 History of Present Illness HPI narrative: Patient is an 84-year-old female with a PMH of CHF, A-fib, CKD, and previous NSTEMI that presents to the emergency department via EMS from her assisted living facility after they had received a medical alert that she had a low SpO2. EMS reports that she had wheezing on exam and was 85% O2 saturations on room air. They also reported increased work of breathing. They did give her a DuoNeb with resolution of her wheezing. Patient reports that she has been short of breath all day but denies any recent illness. Patient reports that she does have A-fib and was supposed to get an ablation today but her doctor wanted to reschedule as she has a large area of ecchymosis on the right side of her face from a fall on Sunday. She does take Xarelto for A-fib. Related Data Home Medications ?Medication ?Instructions ?Recorded ?Confirmed atorvastatin 40 mg tablet 40 mg PO .QHS 10/15/23 05/29/25 ropinirole 1 mg tablet 1 mg PO .HS 10/15/23 05/29/25 amiodarone 200 mg tablet 200 mg PO .QD 07/21/24 05/29/25 calcium 600 mg (as 1 tab PO DAILY 07/21/24 05/29/25 carbonate)-vitamin D3 20 mcg (800 unit) tablet yopzdqysyyau-tmepanwn-oepv 1 tab PO QAM 07/21/24 05/03/25 fumarate 18 mg-folic acid 400 mcg tablet (One-A-Day Women's Complete) duloxetine 30 mg capsule,delayed 30 mg PO DAILY 05/03/25 05/29/25 release metoprolol succinate 50 mg 50 mg PO DAILY 05/03/25 05/29/25 tablet,extended release 24 hr rivaroxaban 20 mg tablet (Xarelto) 20 mg PO DAILY 05/03/25 05/29/25 furosemide 40 mg tablet 40 mg PO .QD 05/04/25 05/29/25 diltiazem HCl 180 mg 180 mg PO Q24H 05/29/25 05/29/25 capsule,extended release 24 hr Previous Rx's ?Medication ?Instructions ?Recorded acetaminophen 325 mg tablet 650 mg (2 x 325 mg) PO Q6H PRN 05/05/25 (Tylenol) pain or fever #0 tabs aspirin 81 mg tablet,delayed 81 mg PO QD #30 tabs 05/05/25 release potassium chloride 10 mEq 10 meq PO DAILY #30 tabs 05/05/25 tablet,extended release Allergies Allergy/AdvReac Type Severity Reaction Status Date / Time No Known Drug Allergies Allergy Verified 05/03/25 06:50 Opioid HPI Opioid Management Most Recent Opioid Data: Last Pain Scale 4 05/25/25, 22:19 Last ED Pain Assessment 05/25/25, 22:19 Last MAR Pain Assessment 05/25/25, 22:10 Last ORT Total Score 0 05/03/25, 10:13 Last ORT Risk Category Low Risk 05/03/25, 10:13 Review of Systems ROS Status of ROS 10 or more systems reviewed and unremarkable except as noted in history and below [facility] Medical History (Updated 05/29/25 @ 22:08 by FEROZ Humphrey) Chronic a-fib ?I48.20 - Chronic atrial fibrillation, unspecified (ICD-10) CHF (congestive heart failure) ?I50.9 - Heart failure, unspecified (ICD-10) Diastolic heart failure ?I50.30 - Unspecified diastolic (congestive) heart failure (ICD-10) Depression ?F32.A - Depression, unspecified (ICD-10) Diaphragmatic hernia ?K44.9 - Diaphragmatic hernia without obstruction or gangrene (ICD-10) Lumbar stenosis with neurogenic claudication ?M48.062 - Spinal stenosis, lumbar region with neurogenic claudication (ICD-10) Lumbar spondylosis ?M47.816 - Spondylosis without myelopathy or radiculopathy, lumbar region (ICD-10) Sacroiliitis ?M46.1 - Sacroiliitis, not elsewhere classified (ICD-10) S/P extracorporeal shock wave therapy ?Z98.890 - Other specified postprocedural states (ICD-10) Kidney stone ?N20.0 - Calculus of kidney (ICD-10) Low back pain ?M54.50 - Low back pain, unspecified (ICD-10) Neck pain ?M54.2 - Cervicalgia (ICD-10) Fibromyalgia ?M79.7 - Fibromyalgia (ICD-10) Hiatal hernia ?K44.9 - Diaphragmatic hernia without obstruction or gangrene (ICD-10) SOB (shortness of breath) ?R06.02 - Shortness of breath (ICD-10) High cholesterol ?E78.00 - Pure hypercholesterolemia, unspecified (ICD-10) Hypertension ?I10 - Essential (primary) hypertension (ICD-10) Surgical History Hx laparoscopic cholecystectomy ?Z90.49 - Acquired absence of other specified parts of digestive tract (ICD-10) S/P hernia repair ?Z98.890 - Other specified postprocedural states (ICD-10) ?Z87.19 - Personal history of other diseases of the digestive system (ICD-10) Family History (Updated 05/03/25 @ 10:42 by Loren Logan) Aunt Family history of cancer Father Family history of diabetes mellitus Family history of hypertension Family history of myocardial infarction Sister Family history of hypertension Social History (Updated 05/03/25 @ 10:42 by Loren Logan) Within the past year, how often did you have a drink containing alcohol: never Score interpretation: A score less than 3 is consistent with normal alcohol consumption. Smoking status: Never smoker Non-prescribed substance use: denies use Highest level of school completed/degree received: high school graduate Are you now , , , , never or living with a partner: In a typical week, how many times do you talk on the telephone with family, friends, or neighbors: 3 or more times per week How often do you get together with friends or relatives: 3 or more times per week How often do you attend buddhist or islam services: 1-3 times per year Do you belong to any clubs or organizations such as buddhist groups unions, fraternal or athletic groups, or school groups: yes Total score: 2 Score interpretation: A score of greater than or equal to 2 indicates the lowest level of social isolation. Little interest or pleasure in doing things: not at all Feeling down, depressed, or hopeless: not at all Exam Narrative Exam Narrative: General: No distress, age-appropriate Skin: Warm, dry, no pallor. No rash. Head: Normocephalic, healing right-sided periorbital ecchymosis. Neck: Supple, non-tender. Eye: Pupils are equal, round and EOMI. No scleral icterus. Ears, Nose, Mouth, and Throat: No nasal mucosal hypertrophy. Oral mucosa is moist, no posterior oropharynx erythema, uvula is mid-line Cardiovascular: Regular Rate and Rhythm without murmur, gallop or rub. Respiratory: No accessory muscle use or respiratory distress. Lungs are clear to auscultation, no wheezing, rhonchi, bilateral rales at the lung bases Chest Wall: no tenderness Musculoskeletal: Full ROM of all extremities, no calf or popliteal tenderness GI: Abdomen is soft, non-distended, non tender to palpation. No masses appreciated. No rebound, guarding, or rigidity noted. Neurological: A&O x4. No cranial nerve dysfunction observed. No truncal ataxia. Moves all extremities. Sensation intact. Psychiatric: Cooperative and interactive. Normal mood and affect. Constitutional Vital Signs, click to edit/add: Last Vital Signs Temp 99.9 F 05/29/25 20:26 Pulse 103 H 05/30/25 01:10 Resp 21 H 05/30/25 01:10 BP 112/49 05/30/25 01:00 Pulse Ox 95 05/30/25 01:10 O2 Del Method Nasal Cannula 05/30/25 00:44 O2 Flow Rate 2 05/30/25 00:44 FiO2 35 05/29/25 21:54 Documenting provider has reviewed patient's vital signs: yes Course Vital Signs Vital signs: Vital Signs Temperature 99.9 F 05/29/25 20:26 Pulse Rate 94 H 05/29/25 20:26 Respiratory Rate 34 H 05/29/25 20:26 Blood Pressure 141/83 05/29/25 20:26 Pulse Oximetry 91 L 05/29/25 20:26 Oxygen Delivery Method Room Air 05/29/25 20:26 Temperature 99.9 F 05/29/25 20:26 Pulse Rate 103 H 05/30/25 01:10 Respiratory Rate 21 H 05/30/25 01:10 Blood Pressure 112/49 05/30/25 01:00 Pulse Oximetry 95 05/30/25 01:10 Oxygen Delivery Method Nasal Cannula 05/30/25 00:44 Oxygen Delivery Flow Rate 2 05/30/25 00:44 Fraction of Inspired Oxygen 35 05/29/25 21:54 Medical Decision Making MDM Narrative Medical decision making narrative: This is an 84-year-old female with a PMH of A-fib on Xarelto, CHF, CKD, and previous NSTEMI that is brought to the emergency department via EMS with complaints of shortness of breath and wheezing. She reports that the worsening shortness of breath started today. EMS reports that her O2 alarm had gone off in they were called and when they evaluated her she had work of breathing and was 85% on room air. They did give her a DuoNeb states that her wheezing resolved and they were able to get a new O2 saturation of 100% on room air. She did tell me she was post to get a cardiac ablation today for her A-fib but her physician decided to cancel this secondary to her recent fall. On arrival patient able to speak in full sentences, no respiratory distress, patient 91% O2 on room air. Afebrile, oral temp 99.9. Vitals are hemodynamically stable. CBC, BMP, Trop, BNP. Chest x-ray ordered Chest x-ray reviewed by myself and radiological reads as mild CHF. Left-sided pacemaker device. Stable enlarged cardiomediastinal silhouette with perihilar pulmonary vasculature. Mild interstitial pulmonary edema. Minimal bibasilar opacities likely combination of trace effusions and atelectasis. EKG on arrival with no ST elevation, no ischemic changes, heart rate 91. Troponin elevated at 109?baseline appears to be between 60-90, repeat ordered. BNP 8, 498 last week was 1,019 CBC: WBC 13.9 BMP: Creatinine/BUN: 1.17/22?history of CKD?this appears to be around baseline Patient reevaluated and now on 2 L nasal cannula, O2 saturation is 98%. She is having increasingly work of breathing since her arrival. She is now unable to speak in full sentences. Lasix ordered. I did call respiratory and we are going to place her on BiPAP. I did speak with her about admission as she is having more work of breathing and is requiring more oxygen. She does wish to be a full code. At this time, 2200, patient is signed out to Dr. Kaur, repeat troponin is pending and plan will be for admission here or possible transfer if patient's clinical condition declines. Differential Diagnosis Differential Diagnosis: ACS, worsening heart failure, A-fib with RVR Lab Data Lab results reviewed: Yes I reviewed the patient's lab results Labs: Lab Results 05/29/25 05/29/25 Range/Units 20:33 22:00 WBC 13.9 H (4.0-11.0) 10^3/uL RBC 4.32 (4.20-5.40) 10^6/uL Hgb 12.7 (12.0-16.0) g/dL Hct 39.7 (36.0-48.0) % MCV 91.9 (81.0-99.0) fL MCH 29.4 (26.7-34.0) pg MCHC 32.0 (29.9-35.2) g/dL RDW 14.6 (11.0-15.0) % Plt Count 232 (150-450) 10^3/uL MPV 11.2 (9.5-13.5) fL Sodium 139 (136-145) mmol/L Potassium 4.4 (3.5-5.1) mmol/L Chloride 105 (98-107) mmol/L Carbon Dioxide 23.4 (21.0-32.0) mmol/L Anion Gap 15.0 BUN 22.0 H (7.0-18.0) mg/dL Creatinine 1.17 H (0.55-1.02) mg/dL Est GFR ( Amer) 54 L (>=60 mL/min/1.73m^2) Est GFR (Non-Af Amer) 44 L (>=60 mL/min/1.73m^2) BUN/Creatinine Ratio 18.8 Glucose 131 H (74-106) mg/dL Calcium 8.9 (8.5-10.1) mg/dL Troponin I High Sens 109.1 H* 121.1 H* (4.0-51.3) pg/mL NT-Pro-B Natriuret Pep 8498.0 H* (<=1800.0) pg/mL Imaging Data Chest x-ray: Radiologist's impression: ITS Impressions Chest X-Ray 05/29/25 20:34 IMPRESSION: Mild CHF Impression dictated by: Tank Desai M.D. 05/29/2025 9:45 PM Dictation Location: [place] [address] Electronically authenticated by: [id number] Y Date: 05/29/2025 21:45 ECG Data Attestation: ?I have reviewed the pertinent ECG results. Discharge Plan Discharge Chief Complaint: Shortness of Breath/Dyspnea Clinical Impression: Congestive heart failure, Paroxysmal A-fib Patient Disposition: er [facility] Discharge Location: [facility] Discharge location: [facility] room 3034 Report to Racheal [phone] Condition: Good Mode of Transportation: Private Vehicle Discharge Date/Time: 05/30/25 01:41 Documented by User: Gary Kaur DO 05/30/25 04:17 HPI HPI - General Adult General Chief complaint: Shortness of Breath/Dyspnea Stated complaint: OTHER Time Seen by Provider: 05/29/25 20:25 Related Data Home Medications ?Medication ?Instructions ?Recorded ?Confirmed atorvastatin 40 mg tablet 40 mg PO .QHS 10/15/23 05/29/25 ropinirole 1 mg tablet 1 mg PO .HS 10/15/23 05/29/25 amiodarone 200 mg tablet 200 mg PO .QD 07/21/24 05/29/25 calcium 600 mg (as 1 tab PO DAILY 07/21/24 05/29/25 carbonate)-vitamin D3 20 mcg (800 unit) tablet czbyckrracgq-znwmcpxt-dhje 1 tab PO QAM 07/21/24 05/03/25 fumarate 18 mg-folic acid 400 mcg tablet (One-A-Day Women's Complete) duloxetine 30 mg capsule,delayed 30 mg PO DAILY 05/03/25 05/29/25 release metoprolol succinate 50 mg 50 mg PO DAILY 05/03/25 05/29/25 tablet,extended release 24 hr rivaroxaban 20 mg tablet (Xarelto) 20 mg PO DAILY 05/03/25 05/29/25 furosemide 40 mg tablet 40 mg PO .QD 05/04/25 05/29/25 diltiazem HCl 180 mg 180 mg PO Q24H 05/29/25 05/29/25 capsule,extended release 24 hr Previous Rx's ?Medication ?Instructions ?Recorded acetaminophen 325 mg tablet 650 mg (2 x 325 mg) PO Q6H PRN 05/05/25 (Tylenol) pain or fever #0 tabs aspirin 81 mg tablet,delayed 81 mg PO QD #30 tabs 05/05/25 release potassium chloride 10 mEq 10 meq PO DAILY #30 tabs 05/05/25 tablet,extended release Allergies Allergy/AdvReac Type Severity Reaction Status Date / Time No Known Drug Allergies Allergy Verified 05/03/25 06:50 Opioid HPI Opioid Management Most Recent Opioid Data: Last Pain Scale 4 05/25/25, 22:19 Last ED Pain Assessment 05/25/25, 22:19 Last MAR Pain Assessment 05/25/25, 22:10 Last ORT Total Score 0 05/03/25, 10:13 Last ORT Risk Category Low Risk 05/03/25, 10:13 [facility] Medical History (Updated 05/29/25 @ 22:08 by FEROZ Humphrey) Chronic a-fib ?I48.20 - Chronic atrial fibrillation, unspecified (ICD-10) CHF (congestive heart failure) ?I50.9 - Heart failure, unspecified (ICD-10) Diastolic heart failure ?I50.30 - Unspecified diastolic (congestive) heart failure (ICD-10) Depression ?F32.A - Depression, unspecified (ICD-10) Diaphragmatic hernia ?K44.9 - Diaphragmatic hernia without obstruction or gangrene (ICD-10) Lumbar stenosis with neurogenic claudication ?M48.062 - Spinal stenosis, lumbar region with neurogenic claudication (ICD-10) Lumbar spondylosis ?M47.816 - Spondylosis without myelopathy or radiculopathy, lumbar region (ICD-10) Sacroiliitis ?M46.1 - Sacroiliitis, not elsewhere classified (ICD-10) S/P extracorporeal shock wave therapy ?Z98.890 - Other specified postprocedural states (ICD-10) Kidney stone ?N20.0 - Calculus of kidney (ICD-10) Low back pain ?M54.50 - Low back pain, unspecified (ICD-10) Neck pain ?M54.2 - Cervicalgia (ICD-10) Fibromyalgia ?M79.7 - Fibromyalgia (ICD-10) Hiatal hernia ?K44.9 - Diaphragmatic hernia without obstruction or gangrene (ICD-10) SOB (shortness of breath) ?R06.02 - Shortness of breath (ICD-10) High cholesterol ?E78.00 - Pure hypercholesterolemia, unspecified (ICD-10) Hypertension ?I10 - Essential (primary) hypertension (ICD-10) Surgical History Hx laparoscopic cholecystectomy ?Z90.49 - Acquired absence of other specified parts of digestive tract (ICD-10) S/P hernia repair ?Z98.890 - Other specified postprocedural states (ICD-10) ?Z87.19 - Personal history of other diseases of the digestive system (ICD-10) Family History (Updated 05/03/25 @ 10:42 by Loren Logan) Aunt Family history of cancer Father Family history of diabetes mellitus Family history of hypertension Family history of myocardial infarction Sister Family history of hypertension Social History (Updated 05/03/25 @ 10:42 by Loren Logan) Within the past year, how often did you have a drink containing alcohol: never Score interpretation: A score less than 3 is consistent with normal alcohol consumption. Smoking status: Never smoker Non-prescribed substance use: denies use Highest level of school completed/degree received: high school graduate Are you now , , , , never or living with a partner: In a typical week, how many times do you talk on the telephone with family, friends, or neighbors: 3 or more times per week How often do you get together with friends or relatives: 3 or more times per week How often do you attend buddhist or islam services: 1-3 times per year Do you belong to any clubs or organizations such as buddhist groups unions, fraternal or athletic groups, or school groups: yes Total score: 2 Score interpretation: A score of greater than or equal to 2 indicates the lowest level of social isolation. Little interest or pleasure in doing things: not at all Feeling down, depressed, or hopeless: not at all Exam Constitutional Vital Signs, click to edit/add: Last Vital Signs Temp 99.9 F 05/29/25 20:26 Pulse 103 H 05/30/25 01:10 Resp 21 H 05/30/25 01:10 BP 112/49 05/30/25 01:00 Pulse Ox 95 05/30/25 01:10 O2 Del Method Nasal Cannula 05/30/25 00:44 O2 Flow Rate 2 05/30/25 00:44 FiO2 35 05/29/25 21:54 Course Vital Signs Vital signs: Vital Signs Temperature 99.9 F 05/29/25 20:26 Pulse Rate 94 H 05/29/25 20:26 Respiratory Rate 34 H 05/29/25 20:26 Blood Pressure 141/83 05/29/25 20:26 Pulse Oximetry 91 L 05/29/25 20:26 Oxygen Delivery Method Room Air 05/29/25 20:26 Temperature 99.9 F 05/29/25 20:26 Pulse Rate 103 H 05/30/25 01:10 Respiratory Rate 21 H 05/30/25 01:10 Blood Pressure 112/49 05/30/25 01:00 Pulse Oximetry 95 05/30/25 01:10 Oxygen Delivery Method Nasal Cannula 05/30/25 00:44 Oxygen Delivery Flow Rate 2 05/30/25 00:44 Fraction of Inspired Oxygen 35 05/29/25 21:54 Medical Decision Making MDM Narrative Medical decision making narrative: This is an 84-year-old female with a PMH of A-fib on Xarelto, CHF, CKD, and previous NSTEMI that is brought to the emergency department via EMS with complaints of shortness of breath and wheezing. She reports that the worsening shortness of breath started today. EMS reports that her O2 alarm had gone off in they were called and when they evaluated her she had work of breathing and was 85% on room air. They did give her a DuoNeb states that her wheezing resolved and they were able to get a new O2 saturation of 100% on room air. She did tell me she was post to get a cardiac ablation today for her A-fib but her physician decided to cancel this secondary to her recent fall. On arrival patient able to speak in full sentences, no respiratory distress, patient 91% O2 on room air. Afebrile, oral temp 99.9. Vitals are hemodynamically stable. CBC, BMP, Trop, BNP. Chest x-ray ordered Chest x-ray reviewed by myself and radiological reads as mild CHF. Left-sided pacemaker device. Stable enlarged cardiomediastinal silhouette with perihilar pulmonary vasculature. Mild interstitial pulmonary edema. Minimal bibasilar opacities likely combination of trace effusions and atelectasis. EKG on arrival demonstrated atrial fibrillation with controlled ventricular response. With no ST elevation, no ischemic changes, heart rate 91. Troponin elevated at 109?baseline appears to be between 60-90, repeat ordered. BNP 8, 498 last week was 1,019 CBC: WBC 13.9 BMP: Creatinine/BUN: 1.17/22?history of CKD?this appears to be around baseline Patient reevaluated and now on 2 L nasal cannula, O2 saturation is 98%. She is having increasingly work of breathing since her arrival. She is now unable to speak in full sentences. Lasix ordered. I did call respiratory and we are going to place her on BiPAP. I did speak with her about admission as she is having more work of breathing and is requiring more oxygen. She does wish to be a full code. At this time, 0, patient is signed out to Dr. Kaur, repeat troponin is pending and plan will be for admission here or possible transfer if patient's clinical condition declines. ATTENDING ADDENDUM: Dr. Kaur Patient seen and evaluated at bedside with midlevel provider. Patient's repeat troponin mildly increased to 121. Her BNP is elevated to 8498. Patient required admission to the hospital for CHF exacerbation, NSTEMI. I discussed the patient with Dr. Basurto, who recommended transfer to higher level of care for cardiology evaluation. I discussed the patient with body maker machine setter at [facility], Dr. Garcia, who accepted the patient. He thinks her elevated troponin is likely demand ischemia, has no further recommendations at this time. Discussed the patient with hospitalist, Dr. Dukes, who accept the patient to his service. At the time of transfer, patient was weaned off BiPAP and was stable on 2 L nasal cannula. FINAL IMPRESSION: #Acute CHF exacerbation requiring NIPPV #Acute NSTEMI DISPOSITION: Transferred to [facility] CONDITION: Fair Medical Records Medical records reviewed: Yes I reviewed the patient's medical records Lab Data Labs: Lab Results 05/29/25 05/29/25 Range/Units 20:33 22:00 WBC 13.9 H (4.0-11.0) 10^3/uL RBC 4.32 (4.20-5.40) 10^6/uL Hgb 12.7 (12.0-16.0) g/dL Hct 39.7 (36.0-48.0) % MCV 91.9 (81.0-99.0) fL MCH 29.4 (26.7-34.0) pg MCHC 32.0 (29.9-35.2) g/dL RDW 14.6 (11.0-15.0) % Plt Count 232 (150-450) 10^3/uL MPV 11.2 (9.5-13.5) fL Sodium 139 (136-145) mmol/L Potassium 4.4 (3.5-5.1) mmol/L Chloride 105 (98-107) mmol/L Carbon Dioxide 23.4 (21.0-32.0) mmol/L Anion Gap 15.0 BUN 22.0 H (7.0-18.0) mg/dL Creatinine 1.17 H (0.55-1.02) mg/dL Est GFR ( Amer) 54 L (>=60 mL/min/1.73m^2) Est GFR (Non-Af Amer) 44 L (>=60 mL/min/1.73m^2) BUN/Creatinine Ratio 18.8 Glucose 131 H (74-106) mg/dL Calcium 8.9 (8.5-10.1) mg/dL Troponin I High Sens 109.1 H* 121.1 H* (4.0-51.3) pg/mL NT-Pro-B Natriuret Pep 8498.0 H* (<=1800.0) pg/mL Imaging Data Chest x-ray: Attestation: I personally reviewed and interpreted this imaging study as follows: Radiologist's impression: ITS Impressions Chest X-Ray 05/29/25 20:34 IMPRESSION: Mild CHF Impression dictated by: Tank Desai M.D. 05/29/2025 9:45 PM Dictation Location: [place] [address] Electronically authenticated by: [id number] Y Date: 05/29/2025 21:45 ECG Data Attestation: I personally reviewed and interpreted this ECG as follows: Discharge Plan Discharge Chief Complaint: Shortness of Breath/Dyspnea Clinical Impression: Congestive heart failure, Paroxysmal A-fib Patient Disposition: [facility] Discharge Location: [facility] Discharge location: [facility] room 3034 Report to Racheal [phone] Condition: Good Mode of Transportation: Private Vehicle Discharge Date/Time: 05/30/25 01:41
--- NOTE | 2025-05-29 20:34 | XR_ITS ---
The [place] [id number] Patient Name: AUSTIN GOLDEN MRN: [id number] date: 1940 Sex: F Assigned Patient Location: ED.MAIN Current Patient Location: ED.MAIN Accession/Order Number: [id number] Exam Date: 05/29/2025 21:09 Report Date: 05/29/2025 21:45 At the request of: JOJO VALENTIN DO Procedure: XR chest 2V PA AND LATERAL CHEST: CLINICAL HISTORY: SOB COMPARISON: 05/05/2025 FINDINGS: Left-sided pacemaker device. Stable enlarged cardiomediastinal silhouette with perihilar pulmonary vasculature. Mild interstitial pulmonary edema. Minimal bibasilar opacities likely combination of trace effusions and atelectasis. XR/XR chest 2V IMPRESSION: Mild CHF Impression dictated by: Tank Desai M.D. 05/29/2025 9:45 PM Dictation Location: [place] [address] Electronically authenticated by: [id number] Y Date: 05/29/2025 21:45
--- NOTE | 2025-05-29 20:34 | ECG_ITS ---
[facility] Test Date: 2025-05-29 Pat Name: AUSTIN GOLDEN Department: Room: - Gender: Female Occup Therapist: : 1940 Requested By: [id number] Order Number: [id number] Reading MD: CHRISTINA CONNER M.D. Measurements Intervals Downs Rate: 91 P: -07301 LA: -49049 QRS: 41 QRSD: 128 T: 193 QT: 354 QTc: 403 Interpretive Statements Atrial flutter with varialble AV block LEFT BUNDLE BRANCH BLOCK 9150 abnormal ECG Compared to ECG 05/03/2025 06:53:25 Sinus rhythm no longer present Electronically Signed On 05-30-2025 5:45:19 EDT by CHRISTINA CONNER M.D.
--- OUTSIDE RECORDS SUMMARY | 2025-05-29 20:41 | XMS_ITS | CCD ---
Author Organization [facility]ini[facility] Care Team Providers Care Silk Screen Etcher Name Role Phone JAZMIN العلي Primary Care Unavailable JELANI SORIA Attending Unavailable VIDAL SORIAF Admitting Unavailable SELF, REFERRED Referring Unavailable PA Procedure Practitioner Unavailab SANJUANA Maier AM Surgeon Unavailable TANNER HERRERA Surgeon Unavailable PA Procedure Practitioner Unavailab JELANI Eid Surgeon Unavailable PA Procedure Practitioner Unavailab Jazmin Buckley E Unavailable [...] Provider DO Jay Ceja Attending Provider [phone] MD Anival Easton Attending Provider DO Jazmin [...] MD Bety Haile Other Provider MD Vicente [facility] Other Provider MD Isra Pedro Other Provider Eduard [facility] Cristiana Rosen Other Provider MD [...] Provider MD Isra Pedro Other Provider Eduard [facility] Cristiana Rosen Other Provider MD Yessy Ackerman Other Provider [phone] DO Katie Dukes Attending Provider [phone] Tyson, DO Briggs Attending Provider Rachel Larios [...] Debbie Mac Attending Provider Tyson Jazmin MORENO [place] Primary [facility] Provider Negin Garcia Unavailable Tysno Jazmin [place] Primary Care Provider Tyson DO [place] Primary Care Provider MD Debbie Mac Attending Provider Jazmin العلي DO Primary Care Provider Debbie Mac MD Unavailable Tyson DO [place] Primary Care Provider MD Debbie Mac Attending Provider MD Yesica Astudillo Attending Provider MD Christopher Richardson Attending Provider Tyson Jazmin Primary Care Provider VINCENT Mendez Emergency Provider [phone] MD Izzy Capps Admit Provider [phone] MD Izzy Capps Attending Provider ROSA Bennett Other Provider Unavailable DO Javed Dee Other Provider MD Jimena Smith Other Provider MD Christopher Richardson Other Provider MD Debbie Mac Other Provider MD Kenny Porter Other Provider VIRGINIA Quach Other Provider MD Bety Haile Other Provider MD Anoop Zhang Other Provider MD Isra Pedro Other Provider Eduard [facility] Cristiana Rosen Other Provider Jazmin العلي [...] Provider Vanessa KAUR, Vic Pritchard Emergency Provider [phone] Jossy MUIR, Shilpa Admit Provider Shilpa Fenton MD Attending Provider Jimena Smith MD Referring Provider Enedelia MUIR, Katie Unavailable Mu LEE, Sasha Unavailable Unavailable Mu RN, Sasha Unavailable Unavailable Tyson MORENO Jazmin Primary Care Provider Aroldo Peña MD Admit Provider Fahad Kim DO Attending Provider [phone] María Joyce MD Other Provider Stephanie Bennett RN Other Provider Unavailable Javed Dee DO Other Provider Dylan MUIR, Christopher Monzon Other Provider [phone] Debbie Mac MD Other Provider O'William MD, Kenny Other Provider Dee Quach APRN Other Provider Bety Haile MD Other Provider Vicente MUIR, Anoop Badillo Other Provider Isra Pedro MD Other Provider Eduard [facility], Cristiana Rosen Other Provider Wilda MUIR, [...] EL Attending Unavailable PROVIDER, UNKNOWN Admitting Unavailable NIEGL EL Attending Unavailable PROVIDER, UNKNOWN Admitting Unavailable PROVIDER, UNKNOWN Admitting Unavailable PROVIDER, UNKNOWN Attending Unavailable AMNA POWELL Referring Unavailable NIGEL EL Admitting Unavailable NIGEL EL Attending Unavailable NIGEL EL Referring Unavailable KATIE YUNG Attending Unavailable KATIE YUNG Admitting Unavailable Jazmin العلي DO Primary Care Provider Maggie Rod MD Emergency Provider Rei MUIR, Ángel Admit Provider Ángel Minaya MD Attending Provider [phone] Fahad Kim DO Attending Provider Jazmin العلي DO Primary Care Provider Jazmin العلي DO Primary Care Provider Juanito Barragan DO Attending Provider [phone] Maxwell Basurto MD Attending Provider [phone] Jazmin العلي Primary Care Unavailable Fahad Kim Attending Unavailable Maria Del Carmen, Imbrenda Consulting Unavailable Aroldo Peña Admitting Unavailable Mischler, Stephanie Consulting Unavailable Javed Dee Consulting Unavailable Sarah, Hess Consulting Unavailable Christopher Richardson Consulting Unavail able Debbie Mac Consulting Unavailable Kenny Porter Consulting Unavailab Dee Jacobs Consulting Unavailable Haile, Bety Consulting Unavailable Vicente, Anoop Najeeb Consulting Unavailab shant Pedro, Tarek Consulting Unavailable Cristiana Chapa Consulting Unavailable Maxwell Basurto Attending Unavailable Maxwell Basurto Admitting Unavailable Tyson Jazmin Primary Care Unavailable Giedraitis, Andrius Attending Unavailable Giedraitis, Andrius Admitting Unavailable Blaine, Jazmin Admitting Unavailable [facility] Primary Care Unavailable Ball, Jazmin Attending Unavailable Tyson, Jazmin Primary Care Unavailable Gracia Craig Admitting Unavailable Gracia Craig Attending Unavailable Mischler, Stephanie Consulting [facility] Fahad Kim Attending Unavailable Ángel Minaya Admitting Unavailable Mischler, Stephanie Consulting Unavailable Javed Dee Consulting Unavailable Smith, Hess Consulting Unavailable Christopher Richardson Consulting Unavail able Debbie Mac Consulting Unavailable Kenny Porter Consulting Unavailab Dee Jacobs Consulting Unavailable Mic, Bety Consulting Unavailable Vicente, Anoop Najeeb Consulting Unavailab shant Archerad, Tarek Consulting Unavailable Cristiana Chapa L Consulting Unavailable Mischler, Stephanie Consulting Unavailable Smith, Hess Referring Unavailable Semaskiene, Shilpa Attending Unavailable Ball, Jazmin Primary Care Unavailable Semaskiene, Shilpa Admitting Unavailable Javed Dee Consulting Unavailable Sarah, Jimena Consulting Unavailable Christopher Richardson Consulting Unavail able Debbie Mac Consulting Unavailable Kenny Porter Consulting Unavailab Dee Jacobs Consulting Unavailable HaileBety alvarenga Consulting Unavailable Vicente, Anoop Culleneb Consulting Unavailab shant Pedro, Isra Consulting Unavailable Cristiana Chapa Consulting Unavailable JOSEPH SEPULVEDA Attending Unavailable JOSEPH SEPULVEDA Attending Unavailable JOSEPH SEPULVEDA Attending Unavailable Sasha Rios CMA Attending Provider UnavailJazmin Stevenson DO Attending Provider MEDRANO, MAXWELL N Referring Unavailable [...] Unavailable BALL, JAZMIN E Primary Care Unavailable Rachel Larios MD Attending Provider DEBBIE MAC Attending Unavailable DEBBIE MAC Referring Unavailable BALL, JAZMIN E Primary Care Unavailable MEDRANO, MAXWELL N Attending Unavailable BALL, JAZMIN E Primary Care Unavailable CRISTIANA CHAPA Attending Unavailable BALL, JAZMIN E Primary Care Unavailable MEDRANO, MAXWELL N Attending Unavailable EDUARDCRISTIANA JIMENEZ L Referring Unavailable BALL, JAZMIN E Primary [...] (1 source) apixaban Drug Allergy 07-26-20 [facility] Repository (20 sources) Sulfonamides (Antibiotic); Translations: [SULFA (SULFONAMIDE ANTIBIOTICS)] Drug allergy (disorder) 07-29-20 13 Itching [facility] Repository (20 sources) Sulfonamides (Antibiotic); Translations: [Sulfa Drugs] Allergy to drug (finding) -[facility] 250 DO Work Phone: (20 sources) fentaNYL; Translations: [fentanyl] Drug Allergy 08-22-19 22 Other [facility] (20 sources) Sulfonamides (Antibiotic) Propensity to adverse reactions Unknown Locationary Other (1 source) fentaNYL Drug Allergy 08-06-20 20 [facility] Repository (1 source) patient allergy list reviewed by nurse or physicia Propensity to adverse reactions 04-15-20 19 Comment:Done Locationary Other (20 sources) Substance with sulfonamide structure and antibacterial mechanism of action (substance) Drug allergy 02-20-20 23 Unknown Locationary Other Medications Current Medications Medication Drug Class(es) Dates Sig (Normalized) Sig (Original) acetaminophen 325 mg oral tablet (20 sources) Start: 12-08-2024 End: 12-08-2024 650 mg, Oral, PACU ONCE PRN, Starting on Sun12/08/24 at 1002, Until Sun12/08/24 at 1601, Mild Pain (pain score 1,2,3), PACU Now Start: 04-01-2024 take 1 capsule by mo [facility] every six hours as needed for [...] sources) Opioid Agonist Start: 11-24-2023 HYDROcodone-ac etaminophen ([place]) 10-325 MG tablet 1 tablet 11/24/2023 Active [...] 2021 12:29pm Start: 04-11-2021 End: 07-03-2021 take [id number] tablet by mouth once daily Amiodarone 200 [...] 08, 2024 12:00am July 03, 2024 2:49pm aspirin 81 mg oral tablet (3 sources) Platelet Aggregation Inhibitor, Nonsteroidal Anti-inflammatory Drug Start: 05-27-2025 take 1 tablet by mouth once daily Aspirin 81 mg tablet Active 81 MG PO Daily May 27, 2025 12:00am Complies with drug therapy take 1 tablet by mouth once dominga y aspirin 81 mg EC tablet Take 1 tablet (81 mg) by mouth once daily. Active atorvastatin 40 mg oral tablet (20 [...] 40 mg tablet Discontinued 0 .ROUTE .COMPLEX 100 March 07, 2024 11:46am April 01, 2024 [...] day Active Calcium Carbonate / vitamin D3 (15 sources) calcium carbonate/vitamin D3 (CALCIUM 600 + [...] tablet daily Quantity: 0 Refills: 0 Ordered: 18-May-2023 DO Active DULoxetine 30 mg delayed release [...] Apply topically 3 times a day. Active gabapentin 100 mg oral capsule (8 sources) [...] 05, 2021 12:29pm take 1 [facility] daily Acidophilus Oral Capsule TAKE 1 CAPSULE Daily Quantity: 0 Refills: 0 Ordered: 06-Jun-2021 DO Active magnesium oxide 400 mg oral tablet (20 sources) Start: 03-28-2024 End: 09-24-2024 take 1 tablet by mouth once daily Magnesium Oxide 400 mg magnesium tablet Active 400 MG PO Daily April 08, 2024 12:00am Complies with drug therapy melatonin 10 mg oral capsule (4 sources) Start: 01-23-2025 take 2 capsules by [...] mouth daily. Suspended multivitamin (Daily Multi-Vitamin) tablet (20 sources) take 1 tablet by nghia th [...] 2021 12:00am Multivitamin Act ginny Multivitamin tablet (16 sources) Start: 04-01-2024 take 1 tablet by [...] 2024 11:00pm mupirocin 0.02 mg/mg topical ointment (19 sources) RNA Synthetase Inhibitor Antibacterial Start: 08-27-2024 [...] Sun12/08/24 at 1601, Nausea, Vomiting, PACU Now microencapsulated potassium chloride 10 meq extended release oral tablet (3 sources) Start: 05-27-2025 take 1 tablet by mouth once daily Potassium Chloride 10 mEq tablet,ER particles/cryst als Active 10 MEQ PO Daily May 27, 2025 12:00am Complies with drug therapy take 1 tablet by mouth once dominga y potassium chloride CR 10 mEq ER tablet Take 1 tablet (10 mEq) by mouth once daily. Do not crush, chew, or split. Active pyridostigmine bromide 30 mg oral tablet [...] End: 12-22-2025 take 1 tablet by mouth at bedtime Rivaroxaban (Xarelto) 15 mg tablet Discontinued 15 MG PO Bedtime December 05, 2021 12:00am January 23, 2025 12:12pm Start: 03-18-2021 End: 07-03-2021 take 1 tablet [...] 16, 2020 12:00am June 30, 2021 3:33pm 1000 ml sodium chloride 9 mg/ml injection (4 sources) Start: 05-28-2025 End: 05-28-2025 take 10 mL intravenously every hour 10 mL/hr, intravenous, Continuous, Starting on Tracie 05/28/25 at 0800, For 8 hours, Preprocedure Start: 12-08-2024 Intravenous, a t 75 mL/hr, CONTINUOUS, Starting on Sun12/08/24 at 1030, Until Discontinued Start: 12-08-2024 3 mL, Intraven ous Push, PRN, Starting on Sun12/08/24 at 1002, Until Discontinued, For medication administration and blood draw, PACU Now Start: 05-29-2024 take 1 mL intravenou sly every hour at 75 mL/hr, Intravenous, CONTINUOUS, Starting on Tracie 05/29/24 at 1230, Until Discontinued Vitamin D3 5000 UNIT (20 sources) Vitamin [...] for Pain Scale 4 - 7 12 July 24, 2024 July 31, 2024 12:43pm [...] And Nails (Biotin)) 10,000 mcg Tablet,Chewable Discontinued 42567 MCG PO Every morning February 25, 2023 11:00pm November 24, 2023 9:06am Start: 02-26-2023 End: 11-24-2023 take 1 tablet by mouth once daily in the morning Biotin (Hair, Skin And Nails (Biotin)) 10,000 mcg Tablet,Chewable Discontinued 39366 MCG PO Every morning February 26, 2023 12:00am November 24, 2023 10:06am Start: 02-26-2023 take 1 tablet by nghia th once daily in the morning Biotin (Hair, Skin And Nails (Biotin)) 10,000 mcg Tablet,Chewable Active 07759 MCG PO Every morning February 25, 2023 11:00pm Start: 02-26-2023 take 1 tablet by nghia th once daily in the morning Biotin (Hair, Skin And Nails (Biotin)) 10,000 mcg Tablet,Chewable Active 27445 MCG PO Every morning February 26, 2023 [...] 03, 2021 1:00am December 05, 2021 12:12pm chlorhexidine gluconate 40 mg/ml medicated liquid soap (1 source) Start: 05-28-2025 End: 05-28-2025 apply 1 dose topically once Topical, Once, On [facility] 05/28/25 at 0800, For 1 dose, Preprocedure, For pre-op skin preparation cholecalciferol 0.05 mg oral capsule (20 sources) [...] once daily. Active take 2 tablets by [facility] every twenty-four hours Vitamin D3 10 [...] 10:54pm Start: 03-17-2024 take 0.125 mg by nghia th once daily digoxin (LANOXIN) 125 MCG tablet Take 0.125 mg by mouth daily. 03/17/2024 Active doxycycline hyclate 100 mg oral capsule (14 sources) Tetracycline-class Drug Start: 01-21-2025 End: 02-02-2025 take 1 capsule by mouth twice daily Doxycycline Hyclate 100 mg capsule Discontinued 100 MG PO Twice daily 02 03January 21, 2025 12:00am February 02, 2025 4:05pm [...] 1 TABLET BY MOUTH EVERYDAY AT BEDTIME furosemide 40 mg oral tablet (20 sources) Loop Diuretic Start: 01-23-2025 End: 05-18-2025 take 1 tablet by mouth once daily Furosemide 40 mg Tablet Discontinued 40 MG PO Daily January 23, 2025 12:00am May 18, 2025 6:25pm Start: 01-20-2024 End: 05-26-2025 take 1 tablet by mouth once daily Furosemide 20 mg tablet Discontinued 20 MG PO Daily May 28, 2024 8:13pm January 23, 2025 12:11pm Start: 03-18-2021 End: 09-01-2022 Furosemide 40 mg [...] 27, 2020 1:00am December 14, 2020 10:51am take 1 tablet by nghia th twice daily furosemide (Lasix) 40 mg tablet Take 1 tablet (40 mg) by mouth 2 times daily (morning and late afternoon). Active Ginkgo-Choline Bitartrate ([employer] Memory Support) 120 mg- [...] 11:00pm Start: 02-26-2023 take 1 tablet by nghai th once daily in the morning Ginkgo-Choline Bitartrate ([facility] Memory Support) 120 mg- 110 mg Tablet [...] mononitrate 30 mg extended release oral tablet (14 sources) Nitrate Vasodilator Start: 07-23-2024 End: 09-10-2024 [...] 0 Ordered: 06-Jun-2021 DO Active Multivitamin Tablet (16 sources) Start: 04-21-2021 End: 11-24-2023 take 1 [...] sources) Proton Pump Inhibitor Start: 03-27-2024 End: 05-26-2025 take 1 tablet by mouth once daily [...] Ordered: 17-Feb-2022 DO Start : 17-Feb-2022 Complete sotalol hydrochloride 80 mg oral tablet (20 [...] DO Start : 01-May-2022 Complete Vit A-Vit Q-Qdlaaj-Upjh-Copper (Bold-Ssxt-Lccg(Vit A,C-Biotin)) 2,500 unit-100 mg-2,500 mcg capsule (20 sources) Start: 01-18-2024 End: 05-08-2024 take 1 capsule by mouth once daily Vit A-Vit Z-Mlrzrg-Ahub-Copper (Sqpj-Iakm-Ycba(Vit A,C-Biotin)) 2,500 unit-100 mg-2,500 mcg capsule Discontinued 1 CAP PO Daily January 17, 2024 11:00pm May 08, 2024 11:06am Start: 01-18-2024 End: 05-08-2024 take 1 capsule by mouth once daily Vit A-Vit N-Oykjee-Vhjn-Copper (Mrve-Xdao-Cfzw(Vit A,C-Biotin)) 2,500 unit-100 mg-2,500 mcg capsule Discontinued 1 CAP PO Daily January 18, 2024 12:00am May 08, 2024 12:06pm Start: 01-18-2024 take 1 capsule by mo [facility] once daily Vit A-Vit X-Kgqdkq-Hbaz-Copper (Urhv-Xwav-Acum(Vit A,C-Biotin)) 2,500 unit-100 mg-2,500 mcg capsule Active [...] of Phys. EHR Cmte Acute myocardial infarction (15 sources) Acute non-ST segment elevation myocardial infarction; Translations: [Myocardial infarction] Onset: Chronic Cardiac dysrhythmias (20 sources) Persistent atrial fibrillation; Translations: [Atrial fibrillation] Onset: 6 06-23-2021 Chronic Comment on above: Problem List clean-u p per request of Phys. EHR Cmte PFT: FEV1/FVC 71, TL V 93%, DLCO 59% - 09/2024 Echo: LVEF 55%, VALERIE, normal RV size/function, RVSP - 01/2024,PFT: FEV1/FVC 71, TLV 93%, DLCO 59% - 09/2024 Echo: LVEF 55%, VALERIE, normal RV size/function, RVSP - 01/2024,PFT: FEV1/FVC 71, TLV 93%, DLCO 59% - 09/2024,Echo: LVEF 55-60%, VALERIE, RVSP 39 - 04/2025 Cardiac dysrhythmias (20 sources) Sinus bradycardia; Translations: [Other specified cardiac dysrhythmias] Onset: 7 06-23-2021 Episodic Comment on above: Problem List clean-u p per request of Phys. EHR Cmte Chronic kidney disease (20 sources) Chronic kidney [...] [Coronary atherosclerosis of unspecified type of vessel, jena or graft] Onset: 3 04-28-2023 Chronic Comment on above: LHC: LAD 40-50%, alyson gonal 70%, RCA 40-50% - 03/2024 LHC: LAD 40-50%, alyson gonal 70%, RCA 40-50% - 03/2024,Echo: LVEF 55%, VALERIE, normal RV size/function, RVSP - 01/2024 Deficiency and other anemia (20 [...] without current pathological fracture] Chronic Other aftercare (7 sources) emt intermediate (current) use of anticoagulants; Translations: [Long-term (current) use of anticoagulants] Onset: 3 09-21-2022 Episodic Other aftercare (1 source) Long-term current use of drug therapy; Translations: [Other exterminator termite (current) drug therapy] Episodic Other aftercare (1 source) High risk drug monitoring status; Translations: [senior living (current) use of opiate analgesic] Episodic Other aftercare (11 sources) Other correction (current) drug therapy; Translations: [Long-term (current) use of other medications] Onset: 3 Episodic Other and ill-defined heart disease (20 [...] with urinary obstruction due to ureteral calculus] 11-09-2021 Episodic Comment on above: Problem List clean-u p per request of Phys. EHR Cmte Other diseases of kidney and ureters (1 source) Hydronephrosis with renal and ureteral calculous obstruction; Translations: [Hydronephrosis with renal and ureteral calculous obstruction] Episodic Other diseases of veins and lymphatics (18 sources) Venous insufficiency of leg; Translations: [Venous [...] Chronic Other nutritional; endocrine; and metabolic disorders (18 sources) Body mass index 30+ - obesity; Translations: [Body mass index (BMI) 30.0-30.9, adult] Onset: 4 02-25-2024 Chronic Other nutritional; endocrine; and metabolic disorders (2 sources) Body mass index (BMI) 28.0-28.9, adult; Translations: [Body mass index (BMI) 28.0-28.9, adult] Onset: 4 Episodic Other screening for suspected conditions (not mental disorders or infectious disease) (20 sources) CT of abdomen abnormal; Translations: [Abnormal findings on diagnostic imaging of other abdominal regions, including retroperitoneum] Onset: 8 06-27-2021 Episodic Comment on above: Problem List clean-u p per request of Phys. EHR Cmte Pleurisy; pneumothorax; pulmonary collapse (9 sources) Pleural effusion; Translations: [Pleural effusion, not [...] [Other specified postprocedural states] Onset: 5 Episodic Residual codes; unclassified (2 sources) Other specified health status; Translations: [Other specified health status] Onset: 3 Episodic Respiratory failure; insufficiency; arrest (adult) (7 sources) Acute respiratory failure; Translations: [Acute respiratory [...] tobacco; Translations: [Never a smoker] 10-23-2024 Unclassified (13 sources) Other persistent atrial fibrillation; Translations: [Other [...] NO SHOW 07-29-2024 Unclassified (1 source) A [facility] screening has identified you as FRAIL [...] Four Ways to Beat the Frailty Risk [email or web address]://[email or web address].org/health/[facility] t-kfp-vcywqryxsq/stay-s cevkd-cnpb-mave-to-beat -the-fra ilty-risk 01-23-2025 Unclassified (3 sources) Autogenerated Problem Onset: 5 04-08-2025 Urinary [...] Problem List clean-u p per request of PhysMelita RUVALCABA Cmte Other aftercare (20 sources) Taking high risk medication; Translations: [Other correction (current) drug therapy] Onset: 04-28-2023 04-28-2023 Episodic [...] 02-25-2024 05-31-2023 Episodic Other lower respiratory disease (1 [...] index (BMI) 27.0-27.9, adult] Onset: 10-23-2024 Episodic Residual codes; unclassified (8 sources) H/O: [...] specified health status] Onset: 08-18-2015 02-22-2023 Episodic Spondylosis; intervertebral disc disorders; other back [...] W/AND (SUSP) EXPOS COVID-19] Onset: 04-20-2022 Unclassified (20 sources) Onset: 05-31-2023 Resolved: 05-26-2025 05-31-2023 Viral infection (1 source) Disease caused by 2019-nCoV; Translations: [COVID-19] Resolved: 2020 Results Test Name Value Interpretation Reference Range Facility Abo/Rh Group Test - STAT (VE RAB)on 05-28-2025 ABO group Nom (Bld) O [facility] D Ag Ql (Bld) Positive [facility] Basic metabolic 2000 panelon 05-28-2025 Anion gap [Moles/Vol] 13 mmol/L 10 - 2 0 mmol/L [facility] Calcium [Mass/Vol] 9.2 mg/dL 8.6 - 10. 3 mg/dL [facility] Chloride [Moles/Vol] 106 mmol/L 98 - 10 7 mmol/L [facility] CO2 [Moles/Vol] 26 mmol/L 21 - 32 mmol/L [facility] Creatinine [Mass/Vol] 1.39 mg/dL High 0.50 - 1.05 mg/dL [facility] GFR/1.73 sq M.predicted among non-blacks MDRD (S/P/Bld) [Vol rate/Area] 38 mL/min/{1.73_m2} Low - PINF [facility] Comment on above: Calculations of fide mated GFR are performed using the 2020 CKD-EPI Study Refit equation without the race variable for the IDMS-Traceable creatinine methods. https://jasn.asnjournals.org/content//ASN.02888 30399 Glucose [Mass/Vol] 121 mg/dL High 74 - 99 mg/dL [facility] Interpretation and review of laboratory results Abnormal [facility] Potassium [Moles/Vol] 4.5 mmol/L 3.5 - 5.3 mmol/L [facility] Sodium [Moles/Vol] 140 mmol/L 136 - 145 mmol/L [facility] Urea nitrogen [Mass/Vol] 25 mg/dL High 6 - 23 mg/dL [facility] Blood type and Indirect anti body screen panel (Bld)on 05-28-2025 ABO group Nom (Bld) O [facility] Blood group antibody screen Ql Negative [facility] D Ag Ql (Bld) Positive [facility] CBC panel Auto (Bld)on 05-28 Erythrocyte distribution width (RBC) [Ratio] 14.4 % 11.5 - 14.5 % [facility] Hematocrit (Bld) [Volume fraction] 40.5 % 36.0 - 46.0 % [facility] Hemoglobin (Bld) [Mass/Vol] 13.2 g/dL 12.0 - 16.0 g/dL [facility] Interpretation and review of laboratory results Normal [facility] MCH (RBC) [Entitic mass] 29.8 pg 26.0 - 34.0 pg [facility] MCHC (RBC) [Mass/Vol] 32.6 g/dL 32.0 - 36.0 g/dL [facility] MCV (RBC) [Entitic vol] 91 fL 80 - 100 fL [facility] Nucleated RBC/100 WBC (Bld) [Ratio] 0.0 % [facility] Platelets (Bld) [#/Vol] 241 10*3/uL [facility] RBC (Bld) [#/Vol] 4.43 10*6/uL [facility] WBC (Bld) [#/Vol] 8.5 10*3/uL [facility] PT and aPTT panel Coag (PPP) on 05-28-2025 aPTT Coag (PPP) [Time] 37 s High [facility] INR Coag (PPP) [Relative time] 2.0 {INR} High 0.9 - 1.1 [facility] Interpretation and review of laboratory results Abnormal [facility] PT Coag (PPP) [Time] 22.5 s High [facility] The APTT is no longe r used for monitoring Unfractionated Heparin Therapy. For monitoring Heparin Therapy, use the Heparin Assay. [facility] ECG 12 Leadon 05-26-2025 Rhythm difficult determined likely to be atrial flutter with 221 AV block heart rate around 97 [facility] Work Phone: Glomerular filtration rate ( GFR) estimation in non- AmericanOrdered By: Jazmin العلي on 05-22-2025 GFR/1.73 sq M.predicted among non-blacks MDRD (S/P/Bld) [Vol rate/Area] 31 mL/min/{1.73_m2} Low >=60 mL/min/1.7 3m 2 [facility] Laboratory - Chemistry and C hemistry - challengeOrdered By: Jazmin العلي on 05-22-2025 Calcium [Mass/Vol] 8.8 mg/dL 8.5-10.1 [facility] Chloride [Moles/Vol] 100 mmol/L 98-[address] [facility] CO2 [Moles/Vol] 31.0 mmol/L 21.0-32.0 [facility] Creatinine [Mass/Vol] 1.59 mg/dL High 0.55-1.02 [facility] GFR/1.73 sq M.predicted MDRD (S/P/Bld) [Vol rate/Area] 38 mL/min/{1.73_m2} Low >=60 mL/min/1.7 3m 2 [facility] Glucose [Mass/Vol] 125 mg/dL High 74-106 [facility] Natriuretic peptide B (Bld) [Mass/Vol] 1019.0 pg/mL <=1800.0 [facility] Potassium [Moles/Vol] 4.1 mmol/L 3.5-5.1 [facility] Sodium [Moles/Vol] 141 mmol/L 136-145 [facility] Urea nitrogen [Mass/Vol] 44.0 mg/dL High 7.0-18.0 [facility] Urea nitrogen/Creatinine [Mass ratio] 27.7 mg/mg [facility] Serum or plasma anion gap de terminationOrdered By: Jazmin العلي on 05-22-2025 Anion gap [Moles/Vol] 14.1 mmol/L [facility] Glomerular filtration rate ( GFR) estimation in non- AmericanOrdered By: Maxwell Basurto on 05-05-2025 GFR/1.73 sq M.predicted among non-blacks MDRD (S/P/Bld) [Vol rate/Area] 34 mL/min/{1.73_m2} Low >=60 mL/min/1.[address] [place] [address] Laboratory - Chemistry and C hemistry - challengeOrdered By: Maxwell Basurto on 05-05-2025 Calcium [Mass/Vol] 9.0 mg/dL 8.5-10.1 [facility] Chloride [Moles/Vol] 104 mmol/L 98-[address] [facility] CO2 [Moles/Vol] 27.2 mmol/L 21.0-32.0 [facility] Creatinine [Mass/Vol] 1.48 mg/dL High 0.55-1.02 [facility] GFR/1.73 sq M.predicted MDRD (S/P/Bld) [Vol rate/Area] 41 mL/min/{1.73_m2} Low >=60 mL/min/1.7 3m 2 [facility] Glucose [Mass/Vol] 107 mg/dL High 74-106 [facility] Natriuretic peptide B (Bld) [Mass/Vol] 1324.0 pg/mL <=1800.0 [facility] Potassium [Moles/Vol] 4.4 mmol/L 3.5-5.1 [facility] Sodium [Moles/Vol] 141 mmol/L 136-145 [facility] Urea nitrogen [Mass/Vol] 31.0 mg/dL High 7.0-18.0 [facility] Urea nitrogen/Creatinine [Mass ratio] 20.9 mg/mg [facility] Serum or plasma anion gap de terminationOrdered By: Maxwell Basurto on 05-05-2025 Anion gap [Moles/Vol] 14.2 mmol/L [facility] Erythrocyte distribution wid th Auto (RBC) [Ratio]Ordered By: Maxwell Basurto on 05-04-2025 Erythrocyte distribution width (RBC) [Ratio] 13.5 % 11.0-15.0 [facility] Globulin Calc (S) [Mass/Vol] Ordered By: Jazmin العلي on 05-04-2025 Globulin (S) [Mass/Vol] 3.7 g/dL [facility] Glomerular filtration rate ( GFR) estimation in non- AmericanOrdered By: Jazmin العلي on 05-04-2025 GFR/1.73 sq M.predicted among non-blacks MDRD (S/P/Bld) [Vol rate/Area] 46 mL/min/{1.73_m2} Low >=60 mL/min/1.7 3m 2 [facility] Hematocrit Auto (Bld) [Volum e fraction]Ordered By: Maxwell Basurto on 05-04-2025 Hematocrit (Bld) [Volume fraction] 39.5 % 36.0-48.0 [facility] Hemoglobin [Mass/volume] in BloodOrdered By: Maxwell Basurto on 05-04-2025 Hemoglobin (Bld) [Mass/Vol] 12.8 g/dL 12.0-16.0 [facility] Laboratory - Chemistry and C hemistry - challengeOrdered By: Maxwell Basurto on 05-04-2025 Bilirubin Ql (U) Negative NEGATIVE [facility] Glucose (U) [Mass/Vol] Negative NEGATIVE [facility] Ketones Ql (U) Negative NEGATIVE [facility] pH (U) 5.5 [pH] 5.0-9.0 [facility] Specific gravity (U) [Rel density] 1.015 1.005-1.02 5 [facility] Urobilinogen Qn (U) 0.2 {Sherrell'U}/dL 0.2-1.0 [facility] Laboratory - Chemistry and C hemistry - challengeOrdered By: Jazmin العلي on 05-04-2025 Albumin [Mass/Vol] 3.7 g/dL 3.4-5.0 [facility] ALP [Catalytic activity/Vol] 92 U/L 46-116 [facility] ALT [Catalytic activity/Vol] 23 U/L 14-59 [facility] AST [Catalytic activity/Vol] 27 U/L 15-37 [facility] Bilirubin [Mass/Vol] 1.5 mg/dL High 0.2-1.[address] [facility] Calcium [Mass/Vol] 9.2 mg/dL 8.5-10.1 [facility] Chloride [Moles/Vol] 105 mmol/L 98-[address] [facility] CO2 [Moles/Vol] 23.2 mmol/L 21.0-32.0 [facility] Creatinine [Mass/Vol] 1.14 mg/dL High 0.55-1.02 [facility] GFR/1.73 sq M.predicted MDRD (S/P/Bld) [Vol rate/Area] 55 mL/min/{1.73_m2} Low >=60 mL/min/1.7 3m 2 [facility] Glucose [Mass/Vol] 97 mg/dL 74-106 [facility] Potassium [Moles/Vol] 3.5 mmol/L 3.5-5.1 [facility] Protein [Mass/Vol] 7.4 g/dL 6.4-8.2 [facility] Sodium [Moles/Vol] 142 mmol/L 136-145 [facility] Urea nitrogen [Mass/Vol] 23.0 mg/dL High 7.0-18.0 [facility] Urea nitrogen/Creatinine [Mass ratio] 20.2 mg/mg [facility] Laboratory - Specimen inform ationOrdered By: Maxwell Basurto on 05-04-2025 Appearance (U) CLEAR CLEAR [facility] Color (U) LT. YELLOW YELLOW [facility] Laboratory - UrinalysisOrder ed By: Maxwell Basurto on 05-04-2025 Leukocyte esterase Test strip Ql (U) MODERATE Abnormal NEGATIVE [facility] Mucus Ql (Urine sed) TRACE Abnormal NONE SEEN [facility] Nitrite Ql (U) Negative NEGATIVE [facility] Protein Ql (U) Negative NEG/TRACE [facility] Leukocytes [#/volume] correc anne marie for nucleated erythrocytes in Blood by Automated counOrdered By: Maxwell Basurto on 05-04-2025 WBC corrected for nucl RBC Auto (Bld) [#/Vol] 9.8 10 3/uL 4.0-11.0 [facility] MCH Auto (RBC) [Entitic mass ]Ordered By: Maxwell Basurto on 05-04-2025 MCH (RBC) [Entitic mass] 29.3 pg 26.7-34.0 [facility] MCHC Auto (RBC) [Mass/Vol]Or dered By: Maxwell Basurto on 05-04-2025 MCHC (RBC) [Mass/Vol] 32.4 g/dL 29.9-35.2 [facility] MCV Auto (RBC) [Entitic vol] Ordered By: Maxwell Basurto on 05-04-2025 MCV (RBC) [Entitic vol] 90.4 fL 81.0-99.0 [facility] No Panel InformationOrdered By: Maxwell Basurto on 05-04-2025 Urine Bacteria SMALL #/HPF Abnormal NONE SEEN [facility] Urine Culture Reflexed YES-[facility] Urine Occult Blood Negative NEGATIVE [facility] Urine Other Casts NONE SEEN #/LPF NONE SEEN [facility] Urine Other Crystals None Seen #/HPF None Seen [facility] Urine RBC 0-2 #/HPF 0-2 [facility] Urine Squamous Epithelial Cells FEW #/LPF Abnormal NONE/RARE [facility] Urine WBC 5-10 #/HPF Abnormal NONE SEEN [facility] Platelet mean volume Auto (B ld) [Entitic vol]Ordered By: Maxwell Basurto on 05-04-2025 Platelet mean volume (Bld) [Entitic vol] 10.2 fL 9.5-13.5 [facility] Platelets Auto (Bld) [#/Vol] Ordered By: Maxwell Basurto on 05-04-2025 Platelets (Bld) [#/Vol] 209 10 3/uL 150-450 [facility] RBC Auto (Bld) [#/Vol]Ordere d By: Maxwell Basurto on 05-04-2025 RBC (Bld) [#/Vol] 4.37 10 6/uL 4.20-5.40 [facility] Serum or plasma albumin/glob ulin mass ratioOrdered By: Jazmin العلي on 05-04-2025 Albumin/Globulin [Mass ratio] 1.0 {ratio} [facility] Serum or plasma anion gap de terminationOrdered By: Jazmin العلي on 05-04-2025 Anion gap [Moles/Vol] 17.3 mmol/L [facility] Urine Cultureon 05-04-2025 Bacteria identified Cx Nom (U) ORGANISM: Escherichia coli (O:ESCCOL) [place] Count >100,000 Aerobic CASSANDRA Charge (NMIC56) SUSCEPTIBILITY [...] RESISTANT TO ALL B-LACTAM DRUGS. PERFORMED BY: [facility] [address] [id number] PATHOLOGIST SALES AND SERVICE ADVISOR REENA JIN M.D. Normal [facility] Comment on above: Performed By: #### C UU ####[facility] [id number] [id number] [facility] Urine cultureOrdered By: J Carlos Basurto on 05-04-2025 Bacteria identified Cx Nom (U) Escherichia coli Abnormal [facility] Basophils Auto (Bld) [#/Vol] Ordered By: Juanito Barragan on 05-03-2025 Basophils (Bld) [#/Vol] 0.0 10 3/uL 0.0-0.1 [facility] Basophils/100 WBC Auto (Bld) Ordered By: Juanito Barragan on 05-03-2025 Basophils/100 WBC (Bld) 0.2 % 0.2-2.0 [facility] Eosinophils/100 WBC Auto (Bl d)Ordered By: Juanito Barragan on 05-03-2025 Eosinophils/100 WBC (Bld) 0.6 % Low 0.9-7.0 [facility] Erythrocyte distribution wid th Auto (RBC) [Ratio]Ordered By: Juanito Barragan on 05-03-2025 Erythrocyte distribution width (RBC) [Ratio] 13.7 % 11.0-15.0 [facility] Glomerular filtration rate ( GFR) estimation in non- AmericanOrdered By: Juanito Barragan on 05-03-2025 GFR/1.73 sq M.predicted among non-blacks MDRD (S/P/Bld) [Vol rate/Area] 41 mL/min/{1.73_m2} Low >=60 mL/min/1.7 3m 2 [facility] Hematocrit Auto (Bld) [Volum e fraction]Ordered By: Juanito Barragan on 05-03-2025 Hematocrit (Bld) [Volume fraction] 39.2 % 36.0-48.0 [facility] Hemoglobin [Mass/volume] in BloodOrdered By: Juanito Barragan on 05-03-2025 Hemoglobin (Bld) [Mass/Vol] 13.1 g/dL 12.0-16.0 [facility] Laboratory - Chemistry and C hemistry - challengeOrdered By: Juanito Barragan on 05-03-2025 Calcium [Mass/Vol] 9.0 mg/dL 8.5-10.1 [facility] Chloride [Moles/Vol] 105 mmol/L 98-[address] [facility] CO2 [Moles/Vol] 21.7 mmol/L 21.0-32.0 [facility] Creatinine [Mass/Vol] 1.26 mg/dL High 0.55-1.02 [facility] GFR/1.73 sq M.predicted MDRD (S/P/Bld) [Vol rate/Area] 49 mL/min/{1.73_m2} Low >=60 mL/min/1.7 2 [facility] Glucose [Mass/Vol] 129 mg/dL High 74-106 [facility] Natriuretic peptide B (Bld) [Mass/Vol] 5655.0 pg/mL Critically high <=1800.0 [facility] Comment on above: RESULTS CALLED TO DR Melita BARRAGAN Potassium [Moles/Vol] 4.4 mmol/L 3.5-5.1 [facility] Sodium [Moles/Vol] 140 mmol/L 136-145 [facility] Urea nitrogen [Mass/Vol] 24.0 mg/dL High 7.0-18.0 [facility] Urea nitrogen/Creatinine [Mass ratio] 19.0 mg/mg [facility] Laboratory - Hematology and Cell countsOrdered By: Juanito Barragan on 05-03-2025 Immature granulocytes/100 WBC (Bld) 0.3 % 0.0-0.5 [facility] Laboratory - Microbiology an d Antimicrobial susceptibilityOrdered By: Juanito Barragan on 05-03-2025 SARS-CoV-2 (COVID-19) RNA GUILLERMO+probe Ql (Unsp spec) Negative NEGATIVE [facility] Comment on above: This test has [...] (Bld) [#/Vol] 12.9 10 3/uL High 4.0-11.0 [facility] Lymphocytes Auto (Bld) [#/Vo l]Ordered By: Juanito Barragan on 05-03-2025 Lymphocytes (Bld) [#/Vol] 1.1 10 3/uL Low 1.2-3.8 [facility] Lymphocytes/100 WBC Auto (Bl d)Ordered By: Juanito Barragan on 05-03-2025 Lymphocytes/100 WBC (Bld) 8.2 % Low 20.5-60.0 [facility] MCH Auto (RBC) [Entitic mass ]Ordered By: Juanito Barragan on 05-03-2025 MCH (RBC) [Entitic mass] 29.8 pg 26.7-34.0 [facility] MCHC Auto (RBC) [Mass/Vol]Or dered By: Juanito Barragan on 05-03-2025 MCHC (RBC) [Mass/Vol] 33.4 g/dL 29.9-35.2 [facility] MCV Auto (RBC) [Entitic vol] Ordered By: Juanito Barragan on 05-03-2025 MCV (RBC) [Entitic vol] 89.3 fL 81.0-99.0 [facility] Monocytes Auto (Bld) [#/Vol] Ordered By: Juanito Barragan on 05-03-2025 Monocytes (Bld) [#/Vol] 1.0 10 3/uL High 0.3-0.8 [facility] Monocytes/100 WBC Auto (Bld) Ordered By: Juanito Barragan on 05-03-2025 Monocytes/100 WBC (Bld) 7.9 % 1.7-12.0 [facility] Neutrophils Auto (Bld) [#/Vo l]Ordered By: Juanito Barragan on 05-03-2025 Neutrophils (Bld) [#/Vol] 10.6 10 3/uL High 1.4-6.5 [facility] Neutrophils/100 WBC Auto (Bl d)Ordered By: Juanito Barragan on 05-03-2025 Neutrophils/100 WBC (Bld) 82.8 % High 43.0-75.0 [facility] No Panel InformationOrdered By: Juanito Barragan on 05-03-2025 Troponin I High Sensitivity 67.2 pg/mL Critically high 4.0-51.3 [facility] Comment on above: RESULTS CALLED TO [...] INFORMATION. Bedside Influenza Type A Antigen Negative [facility] Comment on above: Negative for Flu A p rotein antigen. Infection due to Flu Acannot be ruled out. Flu A antigen in the sample may bebelow the detection limit of the test. Bedside Influenza Type B Antigen Negative [facility] Comment on above: Negative for Flu B p rotein antigen. Infection due to Flu Bcannot be ruled out. Flu B antigen in the sample may bebelow the detection limit of the test. Eosinophils # (Auto) 0.1 10 3/uL 0.0-0.7 [facility] Immature Granulocyte # (Auto) 0.04 10 3/uL High 0.00-0.03 [facility] Platelet mean volume Auto (B ld) [Entitic vol]Ordered By: Juanito Barragan on 05-03-2025 Platelet mean volume (Bld) [Entitic vol] 10.1 fL 9.5-13.5 [facility] Platelets Auto (Bld) [#/Vol] Ordered By: Juanito Barragan on 05-03-2025 Platelets (Bld) [#/Vol] 240 10 3/uL 150-450 [facility] RBC Auto (Bld) [#/Vol]Ordere d By: Juanito Barragan on 05-03-2025 RBC (Bld) [#/Vol] 4.39 10 6/uL 4.20-5.40 [facility] Serum or plasma anion gap de terminationOrdered By: Juanito Barragan on 05-03-2025 Anion gap [Moles/Vol] 17.7 mmol/L [facility] Creatinineon 05-01-2025 Creatinine [Mass/Vol] 1.50 mg/dL High 0.60-1.30 [facility] Comment on above: Result Comment: Hydr oxyurea can cause significant interference with creatinine measurement using the i-STAT device. An alternate method of creatinine measurement must be used in patients treated with hydroxyurea. Performed By: #### 2 160-0 #### STEPHEN DICK ([id number]) [address]ANE[id number] CT ([facility]EROM[facility]OANTWANT) [address] [place] [address] [address] [place] [address] Creatinine [Mass/Vol]on 04-20 Interpretation and review of laboratory results Abnormal [facility] POCT eGFR 35 Low - PINF [facility] Comment on above: Calculations of fide mated GFR are performed using the 2020 CKD-EPI Study Refit equation without the race variable for the IDMS-Traceable Creatinine Methods. https://jasn.asnjournals.org/content/earlyASN.63853 59746 [facility] Glomerular filtration rate 35 mL/min/1.73m*2 Low >=60 [facility] Comment on above: Result Comment: Calc ulations of estimated GFR are performed using the 2020 CKD-EPI Study Refit ???equation without the race variable for the IDMS-Traceable Creatinine Methods. https://jasn.asnjournals.org/content/ASN.11908 03720 Performed By: #### 2 160-0 #### STEPHEN DICK ([id number]) CHANELL KAMARAATMDUW983 CT ([facility] [address] [place] [address] [address] [place] [address] POCT CREATININE AND GFRon Creatinine [Mass/Vol] 1.50 mg/dL High 0.60 - 1.30 mg/dL [facility] Comment on above: Hydroxyurea can caus e significant interference with creatinine measurement using the i-STAT device. An alternate method of creatinine measurement must be used in patients treated with hydroxyurea. Basic metabolic 2000 panelon 04-28-2025 Anion gap [Moles/Vol] 12 mmol/L Normal 10-20 [facility] Comment on above: Performed By: #### 2 4321-2 #### ALEK KENT ([id number]) [facility] ([facility]) [address] [place] [address] Calcium [Mass/Vol] 9.1 mg/dL Normal 8.6-10.3 [facility] Comment on above: Performed By: #### 2 4321-2 #### ALEK KENT ([id number]) [facility] ([facility]) [address] [place] [address] Chloride [Moles/Vol] 102 mmol/L Normal 98-[address] [facility] Comment on above: Performed By: #### 2 4321-2 #### ALEK KENT ([id number]) [facility] ([facility]) [address] [place] [address] CO2 [Moles/Vol] 29 mmol/L Normal 21-32 [facility] Comment on above: Performed By: #### 2 4321-2 #### ALEK KENT ([id number]) [facility] ([facility]) [address] [place] [address] Creatinine [Mass/Vol] 1.62 mg/dL High 0.50-1.05 [facility] Comment on above: Performed By: #### 2 4321-2 #### ALEK KENT ([id number]) [facility] ([facility]) [address] [place] [address] Glomerular filtration rate 32 mL/min/1.73m*2 Low >60 [facility] Comment on above: Result Comment: Calc ulations of estimated GFR are performed using the 2020 CKD-EPI Study Refit equation without the race variable for the IDMS-Traceable creatinine methods. https://jasn.asnjournals.org/content//ASN.60233 01441 Performed By: #### 2 4321-2 #### ALEK KENT ([id number]) [facility] ([facility]) [address] [place] [address] Glucose [Mass/Vol] 104 mg/dL High 74-99 [facility] Comment on above: Performed By: #### 2 4321-2 #### ALEK KENT ([id number]) [facility] ([facility]) [address] [place] [address] Potassium [Moles/Vol] 4.1 mmol/L Normal 3.5-5.3 [facility] Comment on above: Performed By: #### 2 4321-2 #### ALEK KENT ([id number]) [facility] ([facility]) [address] [place] [address] Sodium [Moles/Vol] 139 mmol/L Normal 136-145 [facility] Comment on above: Performed By: #### 2 4321-2 #### ALEK KENT ([id number]) [facility] ([facility]) [address] [place] [address] Urea nitrogen [Mass/Vol] 38 mg/dL High 6-23 [facility] Comment on above: Performed By: #### 2 4321-2 #### ALEK KENT ([id number]) [facility] ([facility]) [address] [place] [address] CBC panel Auto (Bld)on 04-28 Erythrocyte distribution width (RBC) [Ratio] 13.8 % Normal 11.5-14.5 [facility] Comment on above: Performed By: #### 5 8410-2 #### ALEK KENT ([id number]) [facility] ([facility]) [address] [place] [address] Hematocrit (Bld) [Volume fraction] 43.7 % Normal 36.0-46.0 [facility] Comment on above: Performed By: #### 5 8410-2 #### ALEK KENT ([id number]) [facility] ([facility]) [address] [place] [address] Hemoglobin (Bld) [Mass/Vol] 13.5 g/dL Normal 12.0-16.0 [facility] Comment on above: Performed By: #### 5 8410-2 #### ALEK KENT ([id number]) [facility] ([facility]) [address] [place] [address] MCH (RBC) [Entitic mass] 29.5 pg Normal 26.0-34.0 [facility] Comment on above: Performed By: #### 5 8410-2 #### ALEK KENT ([id number]) [facility] ([facility]) [address] [place] [address] MCHC (RBC) [Mass/Vol] 30.9 g/dL Low 32.0-36.0 [facility] Comment on above: Performed By: #### 5 8410-2 #### ALEK KENT ([id number]) [facility] ([facility]) [address] [place] [address] MCV (RBC) [Entitic vol] 95 fL Normal 80-100 [facility] Comment on above: Performed By: #### 5 8410-2 #### ALEK KENT ([id number]) [facility] (EM) [address] [place] [address] Nucleated RBC/100 WBC (Bld) [Ratio] 0.0 /100 WBCs Normal 0.0-0.0 [facility] Comment on above: Performed By: #### 5 8410-2 #### ALEK KENT ([id number]) [facility] ([facility]) [address] [place] [address] Platelets (Bld) [#/Vol] 244 x10*3/uL Normal 150-450 [facility] Comment on above: Performed By: #### 5 8410-2 #### ALEK KENT ([id number]) [facility] ([facility]) [address] [place] [address] 54514 RBC (Bld) [#/Vol] 4.58 x10*6/uL Normal 4.00-5.[address] [facility] Comment on above: Performed By: #### 5 8410-2 #### ALEK KENT ([id number]) [facility] ([facility]) [address] [place] [address] WBC (Bld) [#/Vol] 6.4 x10*3/uL Normal 4.4-11.3 [facility] Comment on above: Performed By: #### 5 8410-2 #### ALEK KENT ([id number]) [facility] ([facility]) [address] [place] [address] ANGIO CHEST PRE PULMONARY VEIN ABLATION [...] PM -------- ORIGINAL REPORT -------- Dictation workstation: [id number] Interpreted By: Katie Asencio, STUDY: CT ANGIO CHEST PRE PULMONARY VEIN ABLATION PLANNING GATED; 05/01/2025 3:37 pm INDICATION: Signs/Symptoms:AFIB. with history of atrial fibrillation, being evaluated for radiofrequency ablation of pulmonary veins. Cardiac CTA is requested for evaluation of the pulmonary venous anatomy, including ostial measurements. COMPARISON: None. ACCESSION NUMBER(S): [id number] ORDERING CLINICIAN: MAXWELL MEDRANO TECHNIQUE: Multi-detector CT [...] of left atrial/left atrial appendage thrombus. [facility] Specialist: Dr. Ramirez (more content not included)... [facility] Coagulation tissue factor in ducedon 04-28-2025 PT Coag (PPP) [Time] 16.3 s High 9.8-12.[address] [facility] Comment on above: Performed By: #### 5 902-2 #### ALEK KENT ([id number]) [facility] ([facility]) [address] [place] [address] Creatinineon 04-28-2025 Creatinine [Mass/Vol] 1.69 mg/dL High 0.50-1.05 [facility] Comment on above: Performed By: #### 2 160-0 #### ROXY ARORA ([id number]) [facility] ([facility]) [address] [place] [address] Creatinine [Mass/Vol]on Glomerular filtration rate 30 mL/min/1.73m*2 Low >60 [facility] Comment on above: Result Comment: Calc ulations of estimated GFR are performed using the 2020 CKD-EPI Study Refit equation without the race variable for the IDMS-Traceable creatinine methods. https://jasn.asnjournals.org/content/early/ASN.10632 10309 Performed By: #### 2 160-0 #### ROXY ARORA ([id number]) [facility] ([facility]) [address] [place] [address] PT Coag (PPP) [Time]on 04-28 INR Coag (PPP) [Relative time] 1.5 High 0.9-1.1 [facility] Comment on above: Performed By: #### 5 902-2 #### ALEK KENT ([id number]) [facility] (C) [address] [place] [address] Cardiac Device Check - Remot davin 01-30-2025 [facility] Work Phone: Radiology Study observation (narrative) [facility] Work Phone: Alanine aminotransferase [En zymatic activity/volume] in Serum or PlasmaOrdered By: Ángel Minaya on 01-23-2025 ALT [Catalytic activity/Vol] Alanine aminotransferase [Enzymatic activity/volume] in Serum or Plasma [facility] Albumin [Mass/volume] in Ser um or Plasma by Bromocresol green (BCG) dye binding methoOrdered By: Ángel Minaya on 01-23-2025 Albumin BCG dye [Mass/Vol] Albumin [Mass/volume] in Serum or Plasma by Bromocresol green (BCG) dye binding metho 3.5-5.7 [facility] Alkaline phosphatase [Enzyma tic activity/volume] in Serum or PlasmaOrdered By: Ángel Minaya on 01-23-2025 ALP [Catalytic activity/Vol] Alkaline phosphatase [Enzymatic activity/volume] in Serum or Plasma 34-104 [facility] Amphetamine Screen Ql (U)Ord ered By: Ángel Minaya on 01-23-2025 Amphetamines Ql (U) Amphetamines screen Negativ e [facility] Aspartate aminotransferase [ Enzymatic activity/volume] in Serum or PlasmaOrdered By: Ángel Minaya on 01-23-2025 AST [Catalytic activity/Vol] Aspartate aminotransferase [Enzymatic activity/volume] in Serum or Plasma 13-39 [facility] Barbiturates [Presence] in U rine by Screen methodOrdered By: Ángel Minaya on 01-23-2025 Barbiturates Screen Ql (U) Barbiturates [Presence] in Urine by Screen method Negative [facility] Basophils Auto (Bld) [#/Vol] Ordered By: Ángel Minaya on 01-23-2025 Basophils (Bld) [#/Vol] Automated basophil count 0.0-0.2 [facility] Basophils/100 WBC Auto (Bld) Ordered By: Ángel Minaya on 01-23-2025 Basophils/100 WBC (Bld) Automated basophil % . [facility] Benzodiazepines Screen Ql (U )Ordered By: Ángel Minaya on 01-23-2025 Benzodiazepines Ql (U) Benzodiazepines [ Presence] in Urine by Screen method Negative [facility] Benzoylecgonine [Presence] i n Urine by Screen methodOrdered By: Ángel Minaya on 01-23-2025 Benzoylecgonine Screen Ql (U) Benzoylecgonine [Presence] in Urine by Screen method Negative [facility] Bilirubin.total [Mass/volume ] in Serum or PlasmaOrdered By: Ángel Minaya on 01-23-2025 Bilirubin [Mass/Vol] Bilirubin.total [Mass/volume] in Serum or Plasma 0.3-1.0 [facility] Calcium [Mass/volume] in Ser um or PlasmaOrdered By: Ángel Minaya on 01-23-2025 Calcium [Mass/Vol] Calcium [Mass/volume ] in Serum or Plasma 8.6-10.3 [facility] Cannabinoids [Presence] in U rine by Screen methodOrdered By: Ángel Minaya on 01-23-2025 Cannabinoids Screen Ql (U) Cannabinoids [Presence] in Urine by Screen method Negative [facility] Comment on above: These are unconfirme [...] l [Moles/volume] in Serum or Plasma 21.0-31.0 [facility] Chloride [Moles/volume] in S vaughn or PlasmaOrdered By: Ángel Minaya on 01-23-2025 Chloride [Moles/Vol] Chloride [Moles/vol ume] in Serum or Plasma 98-107 [facility] Complete Blood Count Auto Di ffon 01-23-2025 Basophils (Bld) [#/Vol] 0.1 10*3/uL Normal 0.0-0.2 [facility] Comment on above: Result Comment: PERF ORMED BY: [facility] [address] [place] [address] PATHOLOGIST SALES AND SERVICE ADVISOR REENA JIN M.D. Performed By: #### P HOS, MG, CMP, CBC ####[facility] Basophils/100 WBC (Bld) 0.9 % Normal . [facility] Comment on above: Performed By: #### P HOS, MG, CMP, CBC ####[facility] [address] Eosinophils (Bld) [#/Vol] 0.2 10*3/uL Normal 0.0-0.45 [facility] Comment on above: Performed By: #### P HOS, MG, CMP, CBC ####[address] Eosinophils/100 WBC (Bld) 2.5 % Normal . [facility] Comment on above: Performed By: #### P HOS, MG, CMP, CBC ####[address] Erythrocyte distribution width (RBC) [Ratio] 13.9 % Normal 11.9-15.3 [facility] Comment on above: Performed By: #### P HOS, MG, CMP, CBC ####[address] Hematocrit (Bld) [Volume fraction] 36.5 % Normal 34.0-46.4 [facility] Comment on above: Performed By: #### P HOS, MG, CMP, CBC ####[address] Hemoglobin (Bld) [Mass/Vol] 12.4 g/dL Normal 11.8-15.4 [facility] Comment on above: Performed By: #### P HOS, MG, CMP, CBC ####[address] Lymphocytes (Bld) [#/Vol] 1.1 10*3/uL Normal 1.00-4.8 [facility] Comment on above: Performed By: #### P HOS, MG, CMP, CBC ####[address] Lymphocytes/100 WBC (Bld) 15.4 % Normal . [facility] Comment on above: Performed By: #### P HOS, MG, CMP, CBC ####[address] MCH (RBC) [Entitic mass] 30.5 pg Normal 24.7-34.3 [facility] Comment on above: Performed By: #### P HOS, MG, CMP, CBC ####[address] MCV (RBC) [Entitic vol] 89.8 fL Normal 80-100 [facility] Comment on above: Performed By: #### P HOS, MG, CMP, CBC ####[address] Mean Corpuscular HGB Conc 34.0 g/dL Normal 32.0-35.0 [facility] Comment on above: Performed By: #### P HOS, MG, CMP, CBC ####[address] Monocytes (Bld) [#/Vol] 0.5 10*3/uL Normal 0.0-0.8 [facility] Comment on above: Performed By: #### P HOS, MG, CMP, CBC ####[address] Monocytes/100 WBC (Bld) 23.36 % High 0.00-20.00 [facility] Comment on above: Result Comment: For adults in ED, MDW > 20.0 may be associated with a higher risk of sepsis during the first 12 hrs of hospital admission Performed By: #### P HOS, MG, CMP, CBC ####[address] Monocytes/100 WBC (Bld) 7.6 % Normal . [facility] Comment on above: Performed By: #### P HOS, MG, CMP, CBC ####[address] Neutrophils (Bld) [#/Vol] 5.2 10*3/uL Normal 1.8-7.7 [facility] Comment on above: Performed By: #### P HOS, MG, CMP, CBC ####[place] [id number] [facility] Neutrophils/100 WBC (Bld) 73.6 % Normal . [facility] Comment on above: Performed By: #### P HOS, MG, CMP, CBC ####[address] NRBC% 0.1 /100{WBC} Normal 0-0.5 [facility] Comment on above: Performed By: #### P HOS, MG, CMP, CBC ####[address] Platelet mean volume (Bld) [Entitic vol] 9.1 fL Normal 6.3-10.7 [facility] Comment on above: Performed By: #### P HOS, MG, CMP, CBC ####[address] Platelets (Bld) [#/Vol] 224 10*3/uL Normal 150-450 [facility] Comment on above: Performed By: #### P HOS, MG, CMP, CBC ####[address] RBC (Bld) [#/Vol] 4.06 10*6/uL Normal 3.60-5.00 [facility] Comment on above: Performed By: #### P HOS, MG, CMP, CBC ####[address] WBC (Bld) [#/Vol] 7.0 10*3/uL Normal 3.8-11.6 [facility] Comment on above: Performed By: #### P HOS, MG, CMP, CBC ####[address] [facility] 01-23-2025 Albumin [Mass/Vol] 3.6 g/dL Normal 3.5-5.7 [facility] Comment on above: Performed By: #### P HOS, MG, CMP, CBC ####[address] Albumin/Globulin [Mass ratio] 1.4 {ratio} Normal [facility] Comment on above: Performed By: #### P HOS, MG, CMP, CBC ####[address] ALP [Catalytic activity/Vol] 71 U/L Normal 34-104 [facility] Comment on above: Performed By: #### P HOS, MG, CMP, CBC ####[place] [id number] [facility] ALT [Catalytic activity/Vol] 20 U/L Normal 7-52 [facility] Comment on above: Performed By: #### P HOS, MG, CMP, CBC ####[place] [id number] [facility] Anion gap [Moles/Vol] 11.4 mmol/L Normal 6.0-15.0 [facility] Comment on above: Performed By: #### P HOS, MG, CMP, CBC ####[place] [id number] [facility] AST [Catalytic activity/Vol] 24 U/L Normal 13-39 [facility] Comment on above: Performed By: #### P HOS, MG, CMP, CBC ####[place] [id number] [facility] Bilirubin [Mass/Vol] 1.0 mg/dL Normal 0.3-1.0 [facility] Comment on above: Performed By: #### P HOS, MG, CMP, CBC ####[place] [id number] [facility] Calcium [Mass/Vol] 8.6 mg/dL Normal 8.6-10.3 [facility] Comment on above: Performed By: #### P HOS, MG, CMP, CBC ####[place] [id number] [facility] Chloride [Moles/Vol] 105 mmol/L Normal 98-107 [facility] Comment on above: Performed By: #### P HOS, MG, CMP, CBC ####[place] [id number] [facility] CO2 [Moles/Vol] 27.3 mmol/L Normal 21.0-31.0 [facility] Comment on above: Performed By: #### P HOS, MG, CMP, CBC ####[place] [id number] [facility] Creatinine [Mass/Vol] 1.20 mg/dL Normal 0.60-1.20 [facility] Comment on above: Performed By: #### P HOS, MG, CMP, CBC ####[address] Creatinine Clr Calc Pharmacy 28.86 Normal [facility] Comment on above: Performed By: #### P HOS, MG, CMP, CBC ####[address] Estimated GFR 45.195 mL/Min Normal [facility] Comment on above: Performed By: #### P HOS, MG, CMP, CBC ####[address] Globulin (S) [Mass/Vol] 2.5 g/dL Normal [facility] Comment on above: Performed By: #### P HOS, MG, CMP, CBC ####[address] Glucose [Mass/Vol] 85 mg/dL Normal 70-100 [facility] Comment on above: Result Comment: [facility] Glucose Reference Range is dependent on time and content of last meal. Glucose of more than 200 mg/dL in a nonstressed, ambulatory subject supports the diagnosis of Diabetes Mellitus. ADA recommended reference range Performed By: #### P HOS, MG, CMP, CBC ####[address] Potassium [Moles/Vol] 3.7 mmol/L Normal 3.5-5.1 [facility] Comment on above: Performed By: #### P HOS, MG, CMP, CBC ####[address] Protein [Mass/Vol] 6.1 g/dL Low 6.4-8.9 [facility] Comment on above: Performed By: #### P HOS, MG, CMP, CBC ####[address] Sodium [Moles/Vol] 140 mmol/L Normal 136-145 [facility] Comment on above: Performed By: #### P HOS, MG, CMP, CBC ####[address] Urea nitrogen [Mass/Vol] 25 mg/dL Normal 7-25 [facility] Comment on above: Performed By: #### P HOS, MG, CMP, CBC ####[address] Creatinine [Mass/volume] in Serum or PlasmaOrdered By: Ángel Minaya on 01-23-2025 Creatinine [Mass/Vol] Creatinine [Mass/v olume] in Serum or Plasma 0.60-1.20 [facility] Drug Screen,Urineon 01-24-20 25 Amphetamine Screen,Urine Negative Normal Negative [facility] Comment on above: Performed By: #### U RDS ####[address] Barbiturate Screen,Urine Negative Normal Negative [facility] Comment on above: Performed By: #### U RDS ####[address] Benzodiazepines Screen,Urine Negative Normal Negative [facility] Comment on above: Performed By: #### U RDS ####[address] Cannabinoid Screen,Urine Negative Normal Negative [facility] Comment on above: Result Comment: Thes e are unconfirmed results and should not be used for legal purposes. Drug Cut-Off Concentration: AMPH 1000 ng/mL RAMESH 200 ng/mL ANAI 200 ng/mL COCM 300 ng/mL OP 300 ng/mL PCP 25 ng/mL THC 20 ng/mL PERFORMED BY: [facility] [address] [place] [address] PATHOLOGIST SALES AND SERVICE ADVISOR REENA JIN M.D. Performed By: #### U RDS ####[address] Cocaine Screen,Urine Negative Normal Negative [facility] Comment on above: Performed By: #### U RDS ####[address] Opiate Screen,Urine Positive High Negative [facility] Comment on above: Performed By: #### U RDS ####[facility] Phencyclidine Screen,Urine Negative Normal Negative [facility] Comment on above: Performed By: #### U RDS ####[facility] [address] Eosinophils Auto (Bld) [#/Vo l]Ordered By: Ángel Minaya on 01-23-2025 Eosinophils (Bld) [#/Vol] Automated eosinophil count 0.0-0.45 [facility] Eosinophils/100 WBC Auto (Bl d)Ordered By: Ángel Minaya on 01-23-2025 Eosinophils/100 WBC (Bld) Automated eosinophil % . [facility] Erythrocyte distribution wid th Auto (RBC) [Ratio]Ordered By: Ángel Minaya on 01-23-2025 Erythrocyte distribution width (RBC) [Ratio] Erythrocyte distribution width [Ratio] by Automated count 11.9-15.3 [facility] Globulin Calc (S) [Mass/Vol] Ordered By: Ángel Minaya on 01-23-2025 Globulin (S) [Mass/Vol] Serum globulin measurement by calculation (mass/volume) [facility] Glucose [Mass/volume] in Ser um or PlasmaOrdered By: Ángel Minaya on 01-23-2025 Glucose [Mass/Vol] Glucose [Mass/volume ] in Serum or Plasma 70-100 [facility] Comment on above: ADA recommended refe rence rangeRandom Glucose Reference Range is dependent on time and content of last meal. Glucose of more than 200 mg/dL in a nonstressed, ambulatory subject supports the diagnosis of Diabetes Mellitus. Hematocrit Auto (Bld) [Volum e fraction]Ordered By: Ángel Minaya on 01-23-2025 Hematocrit (Bld) [Volume fraction] Hematocrit [Volume Fraction] of Blood by Automated count 34.0-46.4 [facility] Hemoglobin [Mass/volume] in BloodOrdered By: Ángel Minaya on 01-23-2025 Hemoglobin (Bld) [Mass/Vol] Hemoglobin [Mass/volume] in Blood 11.8-15.4 [facility] Leukocytes [#/volume] correc anne marie for nucleated erythrocytes in Blood by Automated counOrdered By: Ángel Minaya on 01-23-2025 WBC corrected for nucl RBC Auto (Bld) [#/Vol] Leukocytes [#/volume] corrected for nucleated erythrocytes in Blood by Automated coun 3.8-11.6 [facility] Lymphocytes Auto (Bld) [#/Vo l]Ordered By: Ángel Minaya on 01-23-2025 Lymphocytes (Bld) [#/Vol] Lymphocytes [#/volume] in Blood by Automated count 1.00-4.8 [facility] Lymphocytes/100 WBC Auto (Bl d)Ordered By: Ángel Minaya on 01-23-2025 Lymphocytes/100 WBC (Bld) Lymphocytes/100 leukocytes in Blood by Automated count . [facility] MCH Auto (RBC) [Entitic mass ]Ordered By: Ángel Minaya on 01-23-2025 MCH (RBC) [Entitic mass] MCH [Entitic mass] by Automated count 24.7-34.3 [facility] MCHC Auto (RBC) [Mass/Vol]Or dered By: Ángel Minaya on 01-23-2025 MCHC (RBC) [Mass/Vol] MCHC [Mass/volume] by Automated count 32.0-35.0 [facility] MCV Auto (RBC) [Entitic vol] Ordered By: Ángel Minaya on 01-23-2025 MCV (RBC) [Entitic vol] MCV [Entitic volume] by Automated count 80-100 [facility] Magnesiumon 01-23-2025 Magnesium [Mass/Vol] 2.0 mg/dL Normal 1.9-2.7 [facility] Comment on above: Result Comment: PERF ORMED BY: [facility] [address] [facility] [place] [address] PATHOLOGIST SALES AND SERVICE ADVISOR REENA JIN M.D. Performed By: #### P HOS, MG, CMP, CBC ####[facility] [place] [address] [facility] Magnesium [Mass/volume] in S vaughn or PlasmaOrdered By: Ángel Minaya on 01-23-2025 Magnesium [Mass/Vol] Magnesium [Mass/vol ume] in Serum or Plasma 1.9-2.7 [facility] Monocyte distribution width [Entitic volume] in Blood by AutomatedOrdered By: Ángel Minaya on 01-23-2025 Monocyte distribution width Auto (Bld) [Entitic vol] Monocyte distribution width [Entitic volume] in Blood by Automated High 0.00-20.00 [facility] Comment on above: For adults in ED, MD W > 20.0 may be associated with a higher risk of sepsis during the first 12 hrs of hospital admission Monocytes Auto (Bld) [#/Vol] Ordered By: Ángel Minaya on 01-23-2025 Monocytes (Bld) [#/Vol] Automated blood monocyte count 0.0-0.8 [facility] Monocytes/100 WBC Auto (Bld) Ordered By: Ángel Minaya on 01-23-2025 Monocytes/100 WBC (Bld) Automated monocyte % . [facility] Neutrophils Auto (Bld) [#/Vo l]Ordered By: Ángel Minaya on 01-23-2025 Neutrophils (Bld) [#/Vol] Neutrophils [#/volume] in Blood by Automated count 1.8-7.7 [facility] Neutrophils/100 WBC Auto (Bl d)Ordered By: Ángel Minaya on 01-23-2025 Neutrophils/100 WBC (Bld) Automated neutrophil % . [facility] No Panel InformationOrdered By: Ángel Minaya on 01-23-2025 Estimated GFR (CKD-EPI) 45.195 mL/Min [facility] Creatinine Clearance (Chem 28.86 [facility] Nucleated erythrocytes [Pres ence] in Blood by Automated countOrdered By: Ángel Minaya on 01-23-2025 Nucleated RBC Auto Ql (Bld) Nucleated erythrocytes [Presence] in Blood by Automated count 0-0.5 [facility] Opiates [Presence] in Urine by Screen methodOrdered By: Ángel Minaya on 01-23-2025 Opiates Screen Ql (U) Opiates [Presence] in Urine by Screen method High Negative [facility] Phencyclidine Screen Ql (U)O rdered By: Ángel Minaya on 01-23-2025 Phencyclidine Ql (U) Phencyclidine [Pres ence] in Urine by Screen method Negative [facility] Phosphate [Mass/volume] in S vaughn or PlasmaOrdered By: Ángel Minaya on 01-23-2025 Phosphate [Mass/Vol] Phosphate [Mass/vol ume] in Serum or Plasma 2.5-4.5 [facility] Phosphoruson 01-23-2025 Phosphate [Mass/Vol] 4.4 mg/dL Normal 2.5-4.5 [facility] Comment on above: Performed By: #### P HOS, MG, CMP, CBC ####[facility] [address] [place] [address] [facility] Platelet mean volume Auto (B ld) [Entitic vol]Ordered By: Ángel Minaya on 01-23-2025 Platelet mean volume (Bld) [Entitic vol] Platelet mean volume [Entitic volume] in Blood by Automated count 6.3-10.7 [facility] Platelets Auto (Bld) [#/Vol] Ordered By: Ángel Minaya on 01-23-2025 Platelets (Bld) [#/Vol] Platelets [#/volume] in Blood by Automated count 150-450 [facility] Potassium [Moles/volume] in Serum or PlasmaOrdered By: Ángel Minaya on 01-23-2025 Potassium [Moles/Vol] Potassium [Moles/v olume] in Serum or Plasma 3.5-5.1 [facility] Protein [Mass/volume] in Ser um or PlasmaOrdered By: Ángel Minaya on 01-23-2025 Protein [Mass/Vol] Protein [Mass/volume ] in Serum or Plasma Low 6.4-8.9 [facility] RBC Auto (Bld) [#/Vol]Ordere d By: Ángel Minaya on 01-23-2025 RBC (Bld) [#/Vol] Erythrocytes [#/volu me] in Blood by Automated count 3.60-5.00 [facility] Serum or plasma albumin/glob ulin mass ratioOrdered By: Ángel Minaya on 01-23-2025 Albumin/Globulin [Mass ratio] Serum or plasma albumin/globulin mass ratio [facility] Serum or plasma anion gap de terminationOrdered By: Ángel Minaya on 01-23-2025 Anion gap [Moles/Vol] Serum or plasma an ion gap determination 6.0-15.0 [facility] Sodium [Moles/volume] in Ser um or PlasmaOrdered By: Ángel Minaya on 01-23-2025 Sodium [Moles/Vol] Sodium [Moles/volume ] in Serum or Plasma 136-145 [facility] Urea nitrogen [Mass/volume] in Serum or PlasmaOrdered By: Ángel Minaya on 01-23-2025 Urea nitrogen [Mass/Vol] Urea nitrogen [Mass/volume] in Serum or Plasma 7-25 [facility] WBC Auto (Bld) [#/Vol]Ordere d By: Ángel Minaya on 01-23-2025 WBC (Bld) [#/Vol] Leukocytes [#/volume ] in Blood by Automated count 3.8-11.6 [facility] Alanine aminotransferase [En zymatic activity/volume] in Serum or PlasmaOrdered By: Maggie Rod on 01-22-2025 ALT [Catalytic activity/Vol] Alanine aminotransferase [Enzymatic activity/volume] in Serum or Plasma 7-52 [facility] Albumin [Mass/volume] in Ser um or Plasma by Bromocresol green (BCG) dye binding methoOrdered By: Maggie Rod on 01-22-2025 Albumin BCG dye [Mass/Vol] Albumin [Mass/volume] in Serum or Plasma by Bromocresol green (BCG) dye binding metho 3.5-5.7 [facility] Alkaline phosphatase [Enzyma tic activity/volume] in Serum or PlasmaOrdered By: Maggie Rod on 01-22-2025 ALP [Catalytic activity/Vol] Alkaline phosphatase [Enzymatic activity/volume] in Serum or Plasma 34-104 [facility] Aspartate aminotransferase [ Enzymatic activity/volume] in Serum or PlasmaOrdered By: Maggie Rod on 01-22-2025 AST [Catalytic activity/Vol] Aspartate aminotransferase [Enzymatic activity/volume] in Serum or Plasma 13-39 [facility] B-Type Natriuretic Peptideon 01-22-2025 Natriuretic peptide B (Bld) [Mass/Vol] 192.0 pg/mL High 5-100 [facility] Comment on above: Result Comment: PERF ORMED BY: [facility] [address] [place] [address] PATHOLOGIST SALES AND SERVICE ADVISOR REENA JIN M.D. Performed By: #### P T, CK, HS TROP, PTT, CBC, BNP, CMP, MG ####[facility] [place] [address] [facility] Basophils Auto (Bld) [#/Vol] Ordered By: Maggie Rod on 01-22-2025 Basophils (Bld) [#/Vol] Automated basophil count 0.0-0.2 [facility] Basophils/100 WBC Auto (Bld) Ordered By: Maggie Rod on 01-22-2025 Basophils/100 WBC (Bld) Automated basophil % . [facility] Bilirubin.total [Mass/volume ] in Serum or PlasmaOrdered By: Maggie Rod on 01-22-2025 Bilirubin [Mass/Vol] Bilirubin.total [Mass/volume] in Serum or Plasma High 0.3-1.0 [facility] Calcium [Mass/volume] in Ser um or PlasmaOrdered By: Maggie Rod on 01-22-2025 Calcium [Mass/Vol] Calcium [Mass/volume ] in Serum or Plasma 8.6-10.3 [facility] Carbon dioxide, total [Moles /volume] in Serum or PlasmaOrdered By: Maggie Rod on 01-22-2025 CO2 [Moles/Vol] Carbon dioxide, tota l [Moles/volume] in Serum or Plasma 21.0-31.0 [facility] Chloride [Moles/volume] in S vaughn or PlasmaOrdered By: Maggie Rod on 01-22-2025 Chloride [Moles/Vol] Chloride [Moles/vol ume] in Serum or Plasma 98-107 [facility] Complete Blood Count Auto Di ffon 01-22-2025 Basophils (Bld) [#/Vol] 0.1 10*3/uL Normal 0.0-0.2 [facility] Comment on above: Result Comment: PERF ORMED BY: [facility] [address] [place] [address] PATHOLOGIST SALES AND SERVICE ADVISOR REENA JIN M.D. Performed By: #### P T, CK, HS TROP, PTT, CBC, BNP, CMP, MG ####[facility] [place] [id number] [facility] Basophils/100 WBC (Bld) 1.2 % Normal . [facility] Comment on above: Performed By: #### P T, CK, HS TROP, PTT, CBC, BNP, CMP, MG ####[address] Eosinophils (Bld) [#/Vol] 0.2 10*3/uL Normal 0.0-0.45 [facility] Comment on above: Performed By: #### P T, CK, HS TROP, PTT, CBC, BNP, CMP, MG ####[address] Eosinophils/100 WBC (Bld) 2.5 % Normal . [facility] Comment on above: Performed By: #### P T, CK, HS TROP, PTT, CBC, BNP, CMP, MG ####[address] Erythrocyte distribution width (RBC) [Ratio] 14.4 % Normal 11.9-15.3 [facility] Comment on above: Performed By: #### P T, CK, HS TROP, PTT, CBC, BNP, CMP, MG ####[address] Hematocrit (Bld) [Volume fraction] 38.5 % Normal 34.0-46.4 [facility] Comment on above: Performed By: #### P T, CK, HS TROP, PTT, CBC, BNP, CMP, MG ####[address] Hemoglobin (Bld) [Mass/Vol] 13.3 g/dL Normal 11.8-15.4 [facility] Comment on above: Performed By: #### P T, CK, HS TROP, PTT, CBC, BNP, CMP, MG ####[address] Lymphocytes (Bld) [#/Vol] 1.4 10*3/uL Normal 1.00-4.8 [facility] Comment on above: Performed By: #### P T, CK, HS TROP, PTT, CBC, BNP, CMP, MG ####[address] Lymphocytes/100 WBC (Bld) 17.7 % Normal . [facility] Comment on above: Performed By: #### P T, CK, HS TROP, PTT, CBC, BNP, CMP, MG ####[address] MCH (RBC) [Entitic mass] 30.9 pg Normal 24.7-34.3 [facility] Comment on above: Performed By: #### P T, CK, HS TROP, PTT, CBC, BNP, CMP, MG ####[address] MCV (RBC) [Entitic vol] 89.4 fL Normal 80-100 [facility] Comment on above: Performed By: #### P T, CK, HS TROP, PTT, CBC, BNP, CMP, MG ####[address] Mean Corpuscular HGB Conc 34.6 g/dL Normal 32.0-35.0 [facility] Comment on above: Performed By: #### P T, CK, HS TROP, PTT, CBC, BNP, CMP, MG ####[address] Monocytes (Bld) [#/Vol] 0.6 10*3/uL Normal 0.0-0.8 [facility] Comment on above: Performed By: #### P T, CK, HS TROP, PTT, CBC, BNP, CMP, MG ####[address] Monocytes/100 WBC (Bld) 20.85 % High 0.00-20.00 [facility] Comment on above: Result Comment: For adults in ED, MDW > 20.0 may be associated with a higher risk of sepsis during the first 12 hrs of hospital admission Performed By: #### P T, CK, HS TROP, PTT, CBC, BNP, CMP, MG ####[address] Monocytes/100 WBC (Bld) 7.9 % Normal . [facility] Comment on above: Performed By: #### P T, CK, HS TROP, PTT, CBC, BNP, CMP, MG ####[address] Neutrophils (Bld) [#/Vol] 5.5 10*3/uL Normal 1.8-7.7 [facility] Comment on above: Performed By: #### P T, CK, HS TROP, PTT, CBC, BNP, CMP, MG ####[address] Neutrophils/100 WBC (Bld) 70.7 % Normal . [facility] Comment on above: Performed By: #### P T, CK, HS TROP, PTT, CBC, BNP, CMP, MG ####[address] NRBC% 0.2 /100{WBC} Normal 0-0.5 [facility] Comment on above: Performed By: #### P T, CK, HS TROP, PTT, CBC, BNP, CMP, MG ####[address] Platelet mean volume (Bld) [Entitic vol] 8.6 fL Normal 6.3-10.7 [facility] Comment on above: Performed By: #### P T, CK, HS TROP, PTT, CBC, BNP, CMP, MG ####[address] Platelets (Bld) [#/Vol] 240 10*3/uL Normal 150-450 [facility] Comment on above: Performed By: #### P T, CK, HS TROP, PTT, CBC, BNP, CMP, MG ####[address] RBC (Bld) [#/Vol] 4.31 10*6/uL Normal 3.60-5.00 [facility] Comment on above: Performed By: #### P T, CK, HS TROP, PTT, CBC, BNP, CMP, MG ####[address] WBC (Bld) [#/Vol] 7.8 10*3/uL Normal 3.8-11.6 [facility] Comment on above: Performed By: #### P T, CK, HS TROP, PTT, CBC, BNP, CMP, MG ####[address] Comprehensive Metabolic Pane violeta 01-22-2025 Albumin [Mass/Vol] 4.0 g/dL Normal 3.5-5.7 [facility] Comment on above: Performed By: #### P T, CK, HS TROP, PTT, CBC, BNP, CMP, MG ####[address] Albumin/Globulin [Mass ratio] 1.4 {ratio} Normal [facility] Comment on above: Performed By: #### P T, CK, HS TROP, PTT, CBC, BNP, CMP, MG ####[address] ALP [Catalytic activity/Vol] 87 U/L Normal 34-104 [facility] Comment on above: Performed By: #### P T, CK, HS TROP, PTT, CBC, BNP, CMP, MG ####[address] ALT [Catalytic activity/Vol] 19 U/L Normal 7-52 [facility] Comment on above: Performed By: #### P T, CK, HS TROP, PTT, CBC, BNP, CMP, MG ####[address] Anion gap [Moles/Vol] 12.2 mmol/L Normal 6.0-15.0 [facility] Comment on above: Performed By: #### P T, CK, HS TROP, PTT, CBC, BNP, CMP, MG ####[address] AST [Catalytic activity/Vol] 23 U/L Normal 13-39 [facility] Comment on above: Performed By: #### P T, CK, HS TROP, PTT, CBC, BNP, CMP, MG ####[address] Bilirubin [Mass/Vol] 1.2 mg/dL High 0.3-1.0 [facility] Comment on above: Performed By: #### P T, CK, HS TROP, PTT, CBC, BNP, CMP, MG ####[address] Calcium [Mass/Vol] 9.2 mg/dL Normal 8.6-10.3 [facility] Comment on above: Performed By: #### P T, CK, HS TROP, PTT, CBC, BNP, CMP, MG ####[address] Chloride [Moles/Vol] 105 mmol/L Normal 98-107 [facility] Comment on above: Performed By: #### P T, CK, HS TROP, PTT, CBC, BNP, CMP, MG ####[address] CO2 [Moles/Vol] 25.7 mmol/L Normal 21.0-31.0 [facility] Comment on above: Performed By: #### P T, CK, HS TROP, PTT, CBC, BNP, CMP, MG ####[address] Creatinine [Mass/Vol] 1.13 mg/dL Normal 0.60-1.20 [facility] Comment on above: Performed By: #### P T, CK, HS TROP, PTT, CBC, BNP, CMP, MG ####[address] Creatinine Clr Calc Pharmacy 30.77 Normal [facility] Comment on above: Performed By: #### P T, CK, HS TROP, PTT, CBC, BNP, CMP, MG ####[address] Estimated GFR 48.575 mL/Min Normal [facility] Comment on above: Performed By: #### P T, CK, HS TROP, PTT, CBC, BNP, CMP, MG ####[address] Globulin (S) [Mass/Vol] 2.9 g/dL Normal [facility] Comment on above: Performed By: #### P T, CK, HS TROP, PTT, CBC, BNP, CMP, MG ####[address] Glucose [Mass/Vol] 103 mg/dL High 70-100 [facility] Comment on above: Result Comment: [facility] Glucose Reference Range is dependent on time and content of last meal. Glucose of more than 200 mg/dL in a nonstressed, ambulatory subject supports the diagnosis of Diabetes Mellitus. ADA recommended reference range Performed By: #### P T, CK, HS TROP, PTT, CBC, BNP, CMP, MG ####[address] Potassium [Moles/Vol] 3.9 mmol/L Normal 3.5-5.1 [facility] Comment on above: Performed By: #### P T, CK, HS TROP, PTT, CBC, BNP, CMP, MG ####[address] Protein [Mass/Vol] 6.9 g/dL Normal 6.4-8.9 [facility] Comment on above: Performed By: #### P T, CK, HS TROP, PTT, CBC, BNP, CMP, MG ####[address] Sodium [Moles/Vol] 139 mmol/L Normal 136-145 [facility] Comment on above: Performed By: #### P T, CK, HS TROP, PTT, CBC, BNP, CMP, MG ####[address] Urea nitrogen [Mass/Vol] 27 mg/dL High 7-25 [facility] Comment on above: Performed By: #### P T, CK, HS TROP, PTT, CBC, BNP, CMP, MG ####[facility] [id number] [place] [id number] [facility] Creatine Kinaseon 01-22-2025 CK [Catalytic activity/Vol] 41 U/L Normal 30 [facility] Comment on above: Performed By: #### P T, CK, HS TROP, PTT, CBC, BNP, CMP, MG ####[facility] [id number] [place] [id number] [facility] Creatine kinase [Enzymatic a ctivity/volume] in Serum or PlasmaOrdered By: Maggie Rod on 01-22-2025 CK [Catalytic activity/Vol] Creatine kinase [Enzymatic activity/volume] in Serum or Plasma 30- [facility] Creatinine [Mass/volume] in Serum or PlasmaOrdered By: Maggie Rod on 01-22-2025 Creatinine [Mass/Vol] Creatinine [Mass/v olume] in Serum or Plasma 0.60-1.20 [facility] ECG 12 lead ECGon 01-22-2025 ECG 12 lead ECG [facility] [address] [place] [address] [place] [address] Electrocardiograph Report Signed Patient: Austin Golden MR#: [id number] 8 : 1940 Acct:[id number] Age/Sex: 84 / F ADM Date: 01/22/25 Loc: Room: [address] [place] [address] Type: ADM IN Attending Dr: Ángel Minaya [...] Atrial fibrillation Confirmed by MAGGIE ROD MD ([id number]) on 01/23/2025 5:45:25 AM Referred By: Electronically Signed By: MAGGIE ROD MD Transcribed By: MUS Signed By Maggie Rod Jr, MD 0545 Normal [facility] ECG 12 lead ECG [facility] [address] [place] [address] [place] [address] Electrocardiograph Report Signed Patient: Austin Golden MR#: [id number] 8 : 1940 Acct:[id number] Age/Sex: 84 / F ADM Date: 01/22/25 Loc: Room: [address] [place] [address] Type: ADM IN Attending Dr: Ángel Minaya [...] Anterolateral leads Confirmed by MAGGIE ROD MD ([id number]) on 01/23/2025 5:42:20 AM Referred By: Electronically Signed By: MAGGIE ROD MD Transcribed By: MUS Signed By Maggie Rod Jr, MD [id number] Normal [facility] Eosinophils Auto (Bld) [#/Vo l]Ordered By: Maggie Rod on 01-22-2025 Eosinophils (Bld) [#/Vol] Automated eosinophil count 0.0-0.45 [facility] Eosinophils/100 WBC Auto (Bl d)Ordered By: Maggie Rod on 01-22-2025 Eosinophils/100 WBC (Bld) Automated eosinophil % . [facility] Erythrocyte distribution wid th Auto (RBC) [Ratio]Ordered By: Maggie Rod on 01-22-2025 Erythrocyte distribution width (RBC) [Ratio] Erythrocyte distribution width [Ratio] by Automated count 11.9-15.3 [facility] Globulin Calc (S) [Mass/Vol] Ordered By: Maggie Rod on 01-22-2025 Globulin (S) [Mass/Vol] Serum globulin measurement by calculation (mass/volume) [facility] Glucose [Mass/volume] in Ser um or PlasmaOrdered By: Maggie Rod on 01-22-2025 Glucose [Mass/Vol] Glucose [Mass/volume ] in Serum or Plasma High 70-100 [facility] Comment on above: ADA recommended refe rence rangeRandom Glucose Reference Range is dependent on time and content of last meal. Glucose of more than 200 mg/dL in a nonstressed, ambulatory subject supports the diagnosis of Diabetes Mellitus. Hematocrit Auto (Bld) [Volum e fraction]Ordered By: Maggie Rod on 01-22-2025 Hematocrit (Bld) [Volume fraction] Hematocrit [Volume Fraction] of Blood by Automated count 34.0-46.4 [facility] Hemoglobin [Mass/volume] in BloodOrdered By: Maggie Rod on 01-22-2025 Hemoglobin (Bld) [Mass/Vol] Hemoglobin [Mass/volume] in Blood 11.8-15.4 [facility] INR in Platelet poor plasma by Coagulation assayOrdered By: Maggie Rod on 01-22-2025 INR Coag (PPP) [Relative time] INR in Platelet poor plasma by Coagulation assay [facility] Comment on above: INR Therapeutic [...] erythrocytes in Blood by Automated coun 3.8-11.6 [facility] Lymphocytes Auto (Bld) [#/Vo l]Ordered By: Maggie Rod on 01-22-2025 Lymphocytes (Bld) [#/Vol] Lymphocytes [#/volume] in Blood by Automated count 1.00-4.8 [facility] Lymphocytes/100 WBC Auto (Bl d)Ordered By: Maggie Rod on 01-22-2025 Lymphocytes/100 WBC (Bld) Lymphocytes/100 leukocytes in Blood by Automated count . [facility] MCH Auto (RBC) [Entitic mass ]Ordered By: Maggie Rod on 01-22-2025 MCH (RBC) [Entitic mass] MCH [Entitic mass] by Automated count 24.7-34.3 [facility] MCHC Auto (RBC) [Mass/Vol]Or dered By: Maggie Rod on 01-22-2025 MCHC (RBC) [Mass/Vol] MCHC [Mass/volume] by Automated count 32.0-35.0 [facility] MCV Auto (RBC) [Entitic vol] Ordered By: Maggie Rod on 01-22-2025 MCV (RBC) [Entitic vol] MCV [Entitic volume] by Automated count 80-100 [facility] Magnesiumon 01-22-2025 Magnesium [Mass/Vol] 2.1 mg/dL Normal 1.9-2.7 [facility] Comment on above: Result Comment: PERF ORMED BY: [facility] [address] [id number] PATHOLOGIST SALES AND SERVICE ADVISOR REENA JIN M.D. Performed By: #### P T, CK, HS TROP, PTT, CBC, BNP, CMP, MG ####[facility] [place] [id number] [facility] Magnesium [Mass/volume] in S vaughn or PlasmaOrdered By: Maggie oRd on 01-22-2025 Magnesium [Mass/Vol] Magnesium [Mass/vol ume] in Serum or Plasma 1.9-2.7 [facility] Monocyte distribution width [Entitic volume] in Blood by AutomatedOrdered By: Maggie Rod on 01-22-2025 Monocyte distribution width Auto (Bld) [Entitic vol] Monocyte distribution width [Entitic volume] in Blood by Automated High 0.00-20.00 [facility] Comment on above: For adults in ED, MD W > 20.0 may be associated with a higher risk of sepsis during the first 12 hrs of hospital admission Monocytes Auto (Bld) [#/Vol] Ordered By: Maggie Rod on 01-22-2025 Monocytes (Bld) [#/Vol] Automated blood monocyte count 0.0-0.8 [facility] Monocytes/100 WBC Auto (Bld) Ordered By: Maggie Rod on 01-22-2025 Monocytes/100 WBC (Bld) Automated monocyte % . [facility] Natriuretic peptide B [Mass/ Vol]Ordered By: Maggie Rod on 01-22-2025 Natriuretic peptide B (Bld) [Mass/Vol] BNP ser/plas High 5-100 [facility] Neutrophils Auto (Bld) [#/Vo l]Ordered By: Maggie Rod on 01-22-2025 Neutrophils (Bld) [#/Vol] Neutrophils [#/volume] in Blood by Automated count 1.8-7.7 [facility] Neutrophils/100 WBC Auto (Bl d)Ordered By: Maggie Rod on 01-22-2025 Neutrophils/100 WBC (Bld) Automated neutrophil % . [facility] No Panel InformationOrdered By: Maggie Rod on 01-22-2025 Estimated GFR (CKD-EPI) 48.575 mL/Min [facility] Creatinine Clearance (Chem 30.77 [facility] Nucleated erythrocytes [Pres ence] in Blood by Automated countOrdered By: Maggie Rod on 01-22-2025 Nucleated RBC Auto Ql (Bld) Nucleated erythrocytes [Presence] in Blood by Automated count 0-0.5 [facility] Partial Thromboplastin Timeo n 01-22-2025 aPTT Coag (Bld) [Time] 32.2 s Normal 25.1-36.5 [facility] Comment on above: Result Comment: A he matocrit value greater than 55% may lead to inaccurate results in coagulation testing. Patients having hematocrit values >55% require a special collection tube for coagulation studies. Please contact the laboratory at [phone] for redraw instructions. PERFORMED BY: [facility] [address] [place] [address] PATHOLOGIST SALES AND SERVICE ADVISOR REENA JIN M.D. Performed By: #### P T, CK, HS TROP, PTT, CBC, BNP, CMP, MG ####[facility] [address] [place] [address] [facility] Platelet mean volume Auto (B ld) [Entitic vol]Ordered By: Maggie Rod on 01-22-2025 Platelet mean volume (Bld) [Entitic vol] Platelet mean volume [Entitic volume] in Blood by Automated count 6.3-10.7 [facility] Platelets Auto (Bld) [#/Vol] Ordered By: Maggie Rod on 01-22-2025 Platelets (Bld) [#/Vol] Platelets [#/volume] in Blood by Automated count 150-450 [facility] Potassium [Moles/volume] in Serum or PlasmaOrdered By: Maggie Rod on 01-22-2025 Potassium [Moles/Vol] Potassium [Moles/v olume] in Serum or Plasma 3.5-5.1 [facility] Protein [Mass/volume] in Ser um or PlasmaOrdered By: Maggie Rod on 01-22-2025 Protein [Mass/Vol] Protein [Mass/volume ] in Serum or Plasma 6.4-8.9 [facility] Prothrombin Time INRon 01-22 INR Coag (PPP) [Relative time] 1.2 {INR} Normal [facility] Comment on above: Result [...] HS TROP, PTT, CBC, BNP, CMP, MG ####[place] [id number] [address] PT Coag (PPP) [Time] 13.9 s High 9.0-12.9 [facility] Comment on above: Result Comment: A he matocrit value greater than 55% may lead to inaccurate results in coagulation testing. Patients having hematocrit values >55% require a special collection tube for coagulation studies. Please contact the laboratory at [phone] for redraw instructions. Performed By: #### P T, CK, HS TROP, PTT, CBC, BNP, CMP, MG ####[place] [id number] [address] Prothrombin time (PT)Ordered By: Maggie Rod on 01-22-2025 PT Coag (PPP) [Time] Prothrombin time (PT) High 9.0- 12.9 [facility] Comment on above: A hematocrit value g reater than 55% may lead to inaccurate results in coagulation testing. Patients having hematocrit values >55% require a special collection tube for coagulation studies. Please contact the laboratory at [phone] for redraw instructions. RBC Auto (Bld) [#/Vol]Ordere d By: Maggie Rod on 01-22-2025 RBC (Bld) [#/Vol] Erythrocytes [#/volu me] in Blood by Automated count 3.60-5.00 [facility] Serum or plasma albumin/glob ulin mass ratioOrdered By: Maggie Rod on 01-22-2025 Albumin/Globulin [Mass ratio] Serum or plasma albumin/globulin mass ratio [facility] Serum or plasma anion gap de terminationOrdered By: Maggie Rod on 01-22-2025 Anion gap [Moles/Vol] Serum or plasma an ion gap determination 6.0-15.0 [facility] Sodium [Moles/volume] in Ser um or PlasmaOrdered By: Maggie Rod on 01-22-2025 Sodium [Moles/Vol] Sodium [Moles/volume ] in Serum or Plasma 136-145 [facility] Troponin I High Sensitivityo n 01-22-2025 Troponin I High Sensitivity 15 Normal 0-15 [facility] Comment on above: Result Comment: The Troponin units of report have been changed to meet the Chest Pain Accreditation requirement, element EC5.M1l2. Troponin units are changed from pg/ml to ng/L. Also, the decimal is removed and results are in whole numbers. PERFORMED BY: [facility] [address] [place] [id number] PATHOLOGIST SALES AND SERVICE ADVISOR REENA JIN M.D. Performed By: #### P T, CK, HS TROP, PTT, CBC, BNP, CMP, MG ####[facility] [address] [place] [address] [facility] Troponin I.cardiac [Mass/vol ume] in Serum or Plasma by Detection limit <= 0.01 ng/Ordered By: Maggie Rod on 01-22-2025 Troponin I.cardiac DL <= 0.01 ng/mL [Mass/Vol] Troponin I.cardiac [Mass/volume] in Serum or Plasma by Detection limit <= 0.01 ng/ 0-15 [facility] Comment on above: The Troponin units [...] [Mass/volume] in Serum or Plasma High 7-25 [facility] WBC Auto (Bld) [#/Vol]Ordere d By: Maggie Rod on 01-22-2025 WBC (Bld) [#/Vol] Leukocytes [#/volume ] in Blood by Automated count 3.8-11.6 [facility] X-ray reportOrdered By: Jadiel Borja on 01-22-2025 Study report [facility] [place] [address] XRay Report Signed Patient: Austin Golden MR#: [id number] : 1940 Acct:[id number] Age/Sex: 84 / F ADM Date: 5 Loc: ER Room: Type: [facility] ER Attending Dr: Copies to: Maggie [...] Borja M.D. 01/22/2025 9:22 PM Dictation Location: RADIO-PC-20 Transcribed By: JODI 01/22/252121 Dictated By: Juanito Borja DO 01/22/252120 Signed By: 01/22/252121 [facility] XR chest 1V portableon 01-22 XR chest 1V portable [facility] [address] [place] [address] [place] [address] XRay Report Signed Patient: Austin Golden MR#: [id number] 8 : 1940 Acct:[id number] Age/Sex: 84 / F ADM Date: 01/22/25 Loc: Room: [address] [place] [address] Type: DIS INOo Attending Dr: Fahad Kim [...] Borja M.D. 01/22/2025 9:22 PM Dictation Location: RADIO-PC-20 Transcribed By: JODI 01/22/252121 Dictated By: Juanito Borja DO 01/22/252120 Signed By: 01/22/252121 Normal [facility] aPTT in Platelet poor plasma by Coagulation assayOrdered By: Maggie Rod on 01-22-2025 aPTT Coag (PPP) [Time] Activated partial thromboplastin time (aPTT) in platelet poor plasma by coagulation a 25.1-36.5 [facility] Comment on above: A hematocrit value g reater than 55% may lead to inaccurate results in coagulation testing. Patients having hematocrit values >55% require a special collection tube for coagulation studies. Please contact the laboratory at [phone] for redraw instructions. Basophils Auto (Bld) [#/Vol] on 01-21-2025 Basophils (Bld) [#/Vol] Automated basophil count 0.0-0.1 [facility] Basophils/100 WBC Auto (Bld) on 01-21-2025 Basophils/100 WBC (Bld) Automated basophil % 0.2-2.0 [facility] Eosinophils/100 WBC Auto (Bl d)on 01-21-2025 Eosinophils/100 WBC (Bld) Automated eosinophil % 0.9-7.0 [facility] Erythrocyte distribution wid th Auto (RBC) [Ratio]on 01-21-2025 Erythrocyte distribution width (RBC) [Ratio] Erythrocyte distribution width [Ratio] by Automated count 11.0-15.0 [facility] Estimated glomerular filtrat ion rate (GFR) non- Americanon 01-21-2025 GFR/1.73 sq M.predicted among non-blacks MDRD (S/P/Bld) [Vol rate/Area] Estimated glomerular filtration rate (GFR) non- Low >=60 mL/min/1.7 3m 2 [facility] Globulin Calc (S) [Mass/Vol] on 01-21-2025 Globulin (S) [Mass/Vol] Serum globulin measurement by calculation (mass/volume) [facility] Hematocrit Auto (Bld) [Volum e fraction]on 01-21-2025 Hematocrit (Bld) [Volume fraction] Hematocrit [Volume Fraction] of Blood by Automated count 36.0-48.0 [facility] Hemoglobin [Mass/volume] in Bloodon 01-21-2025 Hemoglobin (Bld) [Mass/Vol] Hemoglobin [Mass/volume] in Blood 12.0-16.0 [facility] Laboratory - Chemistry and C hemistry - challengeon 01-21-2025 Albumin [Mass/Vol] 3.3 g/dL Low 3.4-5.0 [facility] ALP [Catalytic activity/Vol] 105 U/L 46-116 [facility] ALT [Catalytic activity/Vol] 33 U/L 14-59 [facility] AST [Catalytic activity/Vol] 30 U/L 15-37 [facility] Bilirubin [Mass/Vol] 1.1 mg/dL High 0.2-1.[address] [facility] Calcium [Mass/Vol] 9.0 mg/dL 8.5-10.1 [facility] Chloride [Moles/Vol] 105 mmol/L 98-[address] [facility] CO2 [Moles/Vol] 27.9 mmol/L 21.0-32.0 [facility] Creatinine [Mass/Vol] 1.20 mg/dL High 0.55-1.02 [facility] GFR/1.73 sq M.predicted MDRD (S/P/Bld) [Vol rate/Area] 52 mL/min/{1.73_m2} Low >=60 mL/min/1.7 3m 2 [facility] Glucose [Mass/Vol] 98 mg/dL 74-106 [facility] Potassium [Moles/Vol] 4.2 mmol/L 3.5-5.1 [facility] Protein [Mass/Vol] 7.0 g/dL 6.4-8.2 [facility] Sodium [Moles/Vol] 143 mmol/L 136-145 [facility] TSH Qn 5.492 m[IU]/L High 0.358-3.74 0 [facility] Urea nitrogen [Mass/Vol] 23.0 mg/dL High 7.0-18.0 [facility] Urea nitrogen/Creatinine [Mass ratio] 19.2 mg/mg [facility] Laboratory - Hematology and Cell countson 01-21-2025 Immature granulocytes/100 WBC (Bld) 0.3 % 0.0-0.5 [facility] Leukocytes [#/volume] correc anne marie for nucleated erythrocytes in Blood by Automated counon 01-21-2025 WBC corrected for nucl RBC Auto (Bld) [#/Vol] Leukocytes [#/volume] corrected for nucleated erythrocytes in Blood by Automated coun 4.0-11.0 [facility] Lymphocytes Auto (Bld) [#/Vo l]on 01-21-2025 Lymphocytes (Bld) [#/Vol] Lymphocytes [#/volume] in Blood by Automated count 1.2-3.8 [facility] Lymphocytes/100 WBC Auto (Bl d)on 01-21-2025 Lymphocytes/100 WBC (Bld) Lymphocytes/100 leukocytes in Blood by Automated count Low 20.5-60.0 [facility] MCH Auto (RBC) [Entitic mass ]on 01-21-2025 MCH (RBC) [Entitic mass] MCH [Entitic mass] by Automated count 26.7-34.0 [facility] MCHC Auto (RBC) [Mass/Vol]on 01-21-2025 MCHC (RBC) [Mass/Vol] MCHC [Mass/volume] by Automated count 29.9-35.2 [facility] MCV Auto (RBC) [Entitic vol] on 01-21-2025 MCV (RBC) [Entitic vol] MCV [Entitic volume] by Automated count 81.0-99.0 [facility] Monocytes Auto (Bld) [#/Vol] on 01-21-2025 Monocytes (Bld) [#/Vol] Automated blood monocyte count 0.3-0.8 [facility] Monocytes/100 WBC Auto (Bld) on 01-21-2025 Monocytes/100 WBC (Bld) Automated monocyte % 1.7-12.0 [facility] Neutrophils Auto (Bld) [#/Vo l]on 01-21-2025 Neutrophils (Bld) [#/Vol] Neutrophils [#/volume] in Blood by Automated count 1.4-6.5 [facility] Neutrophils/100 WBC Auto (Bl d)on 01-21-2025 Neutrophils/100 WBC (Bld) Automated neutrophil % 43.0-75.0 [facility] No Panel Informationon 01-21 Eosinophils # (Auto) 0.3 10 3/uL 0.0-0.7 [facility] Immature Granulocyte # (Auto) 0.02 10 3/uL 0.00-0.03 [facility] Platelet mean volume Auto (B ld) [Entitic vol]on 01-21-2025 Platelet mean volume (Bld) [Entitic vol] Platelet mean volume [Entitic volume] in Blood by Automated count 9.5-13.5 [facility] Platelets Auto (Bld) [#/Vol] on 01-21-2025 Platelets (Bld) [#/Vol] Platelets [#/volume] in Blood by Automated count 150-450 [facility] RBC Auto (Bld) [#/Vol]on RBC (Bld) [#/Vol] Erythrocytes [#/volu me] in Blood by Automated count 4.20-5.40 [facility] Serum or plasma albumin/glob ulin mass ratioon 01-21-2025 Albumin/Globulin [Mass ratio] Serum or plasma albumin/globulin mass ratio [facility] Serum or plasma anion gap de terminationon 01-21-2025 Anion gap [Moles/Vol] Serum or plasma an ion gap determination [facility] Assessment AND Plan Noteon 0 01-06-2025 Finance Intern Authentication Interface Message Text -discussed risks/benefits of surgery--it is high risk due to her age and revisional nature of it -she will talk to her family and let me know if she'd like to proceed with surgery or just live with it Normal [facility] Progress Noteson 01-06-2025 Finance Intern Authentication Interface Message Text Phone numbers Preferred Documentation: Mode: Telephone Patient Patient Work Phone: Patient Cell Preferred phone: [phone] Consent: I confirmed patient understanding of the [...] OralBarium Sulfate 1 Tab Route: Oral FINDINGS: Clinic Licensed Practical Nurse fluoroscopic spot images of the abdomen: Non-obstructive [...] it Nigel El MD, FACS Normal [facility] Progress Noteson 12-31-2024 Finance Intern Authentication Interface Message Text This encounter was opened in error. Patient was a No-Show. Please disregard. Called twice, left message to reschedule. Nigel El MD Normal [facility] Assessment AND Plan Noteon 0 12-30-2024 Finance Intern Authentication Interface Message Text -Evidence of recurrence on imaging/EGD -discussed non-operative vs operative management, patient elects to Normal [facility] Progress Noteson 12-30-2024 Finance Intern Authentication Interface Message Text This encounter was opened in error. Patient was a No-Show. Please disregard. Called many times, left message to reschedule. Nigel El MD Normal [facility] Telephone Encounteron 2024 Finance Intern Authentication Interface Message Text LVM 12/11 @ 9:30 cancelling appt. Left my number for r/s- SO Normal [facility] Anesthesia Postprocedure Taylor luationon 12-08-2024 Finance Intern Authentication Interface Message Text Anesthesia Postoperative Assessment: [...] EVENTS: No notable events documented. 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 heart constantia since 2020 after she was hospitalized in [facility] for bradycardia. Adjustment of her medical [...] were discussed with the patient and/or legal traffic representative. The risks, benefits and alternatives were reviewed. Questions regarding anesthesia were answered. Patient and/or legal traffic representative knows such anesthetics and procedures may be performed by Resident physicians, Certified Anesthesiologist Assistants, or Certified Nurse Anesthetists under the supervision of a physician. The patient /or the patient's legal traffic representative agree with the plan for anesthesia. MHPATFORM Normal The [facility] Anesthesia Transfer Of Careo n 12-08-2024 Finance Intern Authentication Interface Message Text Patient taken to [...] Lines, Drains, Airways Peripheral IV Access: 12/08/24 09 20 gauge Distal;Posterior;Right Forearm (Active) Site Assessment Dressing intact;WNL 12/08/24 09 Infusion Status Port #1 Positive blood return 12/08/24936 Airway Adjunct: Non-Rebreather Oral (Active) Airway Insertion [...] report was received. KOMAL Richardson Normal [facility] Blood Attestationon 12-09-19 Finance Intern Authentication Interface Message Text Blood Attestation: ATTESTATION OF INFORMED CONSENT FOR BLOOD: The transfusion of blood and/or blood components were discussed with the patient and/or legal traffic representative. The risks, benefits and alternatives were reviewed. Questions regarding blood transfusions were answered. The patient /or the patient's legal traffic representative agree with the plan for transfusion of blood and/or blood components. Normal [facility] H AND Rudolph 12-08-2024 Finance Intern Authentication Interface Message Text [employer] GENERAL SURGERY H AND P Austin Golden [id number] History (HPI) Austin Golden is a 84 [...] Garima Sotomayor MD General Surgery Normal [facility] OP Noteon 12-08-2024 Finance Intern Authentication Interface Message Text Austin Golden 84 year old Surgical Contact Serial Number: [id number] Location: ENDO 04 Date: 12/08/2024 YARD SUPERVISOR: Nigel El MD ATTENDING:Nigel El MD Procedure(s): ESOPHAGOGASTRODUODENOSCOPY WITH ENDOFLIP INSTRUMENT: Scope #[id number] SEDATION: Anesthesia Assisted Pre-Op Diagnosis Codes: * [...] hernia without obstruction or gangrene (Primary Diagnosis) [133705] Hiatal hernia [453513] Gastroesophageal reflux disease without esophagitis [437304] TEE PATH SPECIMEN SENT: no SPECIMEN: None [...] please contact the endoscopy center Mon-Fri 7:30am-4pm [phone] or after hours general [facility] number [phone] Severe abdominal pain that keeps getting worse Fever or any other signs of infection Nausea or vomiting blood Seeing persistent blood coming out of your rectum, with or without stool (some streaks or drops of blood may be expected) For any additional questions, please call the endoscopy center at [phone] Follow-up with your Primary Care Provider CC: Primary Care Provider: No primary care provider on file. PERSON COMPLETING NOTE: Nigel El MD 12/08/2024 at 10:41 AM Patient meets criteria for discharge/transfer: Nigel El MD Normal [facility] Telephone Encounteron 2024 Finance Intern Authentication Interface Message Text What is the [...] your last menstrual period? N/a Protocols used: [id number]-S-TD Normal [facility] Interface Message Text What is the need: Situation: returning patients call Background: n/a Assessment: pt unable to provide three identifiers, states she is sick and to call back later. Recommendation: no advise given, RN offered to call 911 for patient, pt declined. Bonnie Clarke RN Normal [facility] Interface Message Text Caller: The Pt Symptoms: Pt states that she is not able to keep food down. Patient is requesting a call back from the Triage Nurse. Thank you! Normal [facility] Interface Message Text Pt calling to check the status of her previous message requesting a sooner GI appointment with Dr. Charles Yung. Pt states that she is not able to keep boost or food down, (it keeps coming up). Please return call to Pt at: . Thank you Normal [facility] Telephone Encounteron 2024 Finance Intern Authentication Interface Message Text Situation: pt is [...] if needed Recommendation: see above Normal [facility] Progress Noteson 11-14-2024 Finance Intern Authentication Interface Message Text Documentation: Mode: Telephone Patient Patient Work Phone: Patient Cell Preferred phone: [phone] Consent: I confirmed patient understanding of the [...] EGD w/ EndoFlip with Dr. Gutiérrez or El-Yovani - upper GI series vs repeat barium swallow per surgeon preference - consideration by surgery of loosening wrap to partial fundoplication? - if that isn't option or not effective can consider empiric dilation, botox injection - she is losing weight. Katie Yung MD Division of Gastroenterology AND Hepatology [facility] 11/14/24, 11:49 AM Normal [facility] Telephone Encounteron 2024 Finance Intern Authentication Interface Message Text Situation: swallowing difficulties [...] last menstrual period? N/a Protocols used: Swallowing Gqhxmijoha-L-PD Normal [facility] Finance Intern Authentication Interface Message Text Caller warm-transferred to [facility] Nurse for Sx/Buzzword situation of: Food [...] Caller's Telephone Number: Telephone Information: Normal [facility] Telephone Encounteron 2024 Finance Intern Authentication Interface Message Text Phoned patient to [...] resort is to loosen raul. Normal [facility] Finance Intern Authentication Interface Message Text Situation: Vomiting. Having worsening sx r/t EGJOO and was told to contact Dr Yung. Background: See nurse triage Assessment: See nurse triage Recommendation: Patient advised to call back with worsening sx. Dispo was ED now vs PCP Triage Page to GI @ [address] Gee who advised [...] your last menstrual period? N/A Protocols used: Snyevecl-G-GW Normal [facility] Finance Intern Authentication Interface Message Text Symptoms - frequent vomiting Per decision tree transfer to nurse Normal [facility] Hemoglobin [Mass/volume] in Bloodon 10-01-2024 Hemoglobin (Bld) [Mass/Vol] Hemoglobin [Mass/volume] in Blood 12.0-16.0 [facility] Alanine aminotransferase [En zymatic activity/volume] in Serum or PlasmaOrdered By: Gracia Craig on 09-12-2024 ALT [Catalytic activity/Vol] Alanine aminotransferase [Enzymatic activity/volume] in Serum or Plasma 7-52 [facility] Albumin [Mass/volume] in Ser um or Plasma by Bromocresol green (BCG) dye binding methoOrdered By: Graciacatrina Craig on 09-12-2024 Albumin BCG dye [Mass/Vol] Albumin [Mass/volume] in Serum or Plasma by Bromocresol green (BCG) dye binding metho 3.5-5.7 [facility] Alkaline phosphatase [Enzyma tic activity/volume] in Serum or PlasmaOrdered By: Graciacatrina Craig on 09-12-2024 ALP [Catalytic activity/Vol] Alkaline phosphatase [Enzymatic activity/volume] in Serum or Plasma 34-104 [facility] Aspartate aminotransferase [ Enzymatic activity/volume] in Serum or PlasmaOrdered By: Graciacatrina Craig on 09-12-2024 AST [Catalytic activity/Vol] Aspartate aminotransferase [Enzymatic activity/volume] in Serum or Plasma 13-39 [facility] B-Type Natriuretic Peptideon 09-12-2024 Natriuretic peptide B (Bld) [Mass/Vol] 170.0 pg/mL High 5-100 [facility] Comment on above: Result Comment: PERF ORMED BY: [facility] [address] [place] [address] PATHOLOGIST SALES AND SERVICE ADVISOR AKILAH LOMBARDO M.D. Performed By: #### P T, CMP, BNP, HS TROP, CK, CBC ####[facility] Basophils Auto (Bld) [#/Vol] Ordered By: Gracia Craig on 09-12-2024 Basophils (Bld) [#/Vol] Automated basophil count 0.0-0.2 [facility] Basophils/100 WBC Auto (Bld) Ordered By: Graciacatrina Craig on 09-12-2024 Basophils/100 WBC (Bld) Automated basophil % . [facility] Bilirubin.total [Mass/volume ] in Serum or PlasmaOrdered By: Graciacatrina Craig on 01-24-2025 Bilirubin [Mass/Vol] Bilirubin.total [Mass/volume] in Serum or Plasma 0.3-1.0 [facility] COVID Cepheid NegativeOrdere d By: Gracia Rafa on 09-12-2024 SARS-CoV-2 (COVID-19) Ab IA Ql COVID Cepheid Negative [facility] Comment on above: This is a [...] or Cepheid Disclaimer revoked sooner. PERFORMED BY: [place] [address] PATHOLOGIST SALES AND SERVICE ADVISOR AKILAH Hazel [facility] Comment on above: Performed By: #### C OVID19 FLU RSV, CEPHEID NEG ####[facility] [address] [place] [place] [id number] [facility] CT chest wo conon 09-12-2024 CT chest wo con [facility] [place] [address] CT Scan Report Signed Patient: Austin Golden MR#: [id number] 8 : 1940 Acct:[id number] Age/Sex: 83 / F ADM Date: 09/12/24 Loc: ER Room: Type: [facility] ER Attending Dr: Copies to: Gracia [...] Thomas Haskins M.D.09/12/2024 12:37 PM Dictation Location: [place] [address] Transcribed By: JODI 09/12/24 1237 Dictated By: Thomas Haskins II, MD 09/12/24 1233 Signed By: 09/12/24 1237 Normal [facility] Calcium [Mass/volume] in Ser um or PlasmaOrdered By: Gracia Craig on 09-12-2024 Calcium [Mass/Vol] Calcium [Mass/volume ] in Serum or Plasma 8.6-10.3 [facility] Carbon dioxide, total [Moles /volume] in Serum or PlasmaOrdered By: Gracia Craig on 09-12-2024 CO2 [Moles/Vol] Carbon dioxide, tota l [Moles/volume] in Serum or Plasma 21.0-31.0 [facility] Cepheid COVID PCR Negativeon 09-12-2024 SARS-CoV-2 (COVID-19) RNA GUILLERMO+probe Ql (Unsp spec) Negative Normal Negative [facility] Comment on above: Result Comment: This is a duplicate Cepheid Xpert Xpress CoV-2/Flu/RSV Plus RNA by RT-PCR result to be used for statistical tracking purpose only. PERFORMED BY: [facility] [address] [place] [address] PATHOLOGIST SALES AND SERVICE ADVISOR AKILAH LOMBARDO M.D. Performed By: #### C OVID19 FLU RSV, CEPHEID NEG ####[facility] [address] [place] [address] [place] Chloride [Moles/volume] in S vaughn or PlasmaOrdered By: Gracia Craig on 09-12-2024 Chloride [Moles/Vol] Chloride [Moles/vol ume] in Serum or Plasma 98-107 [facility] Complete Blood Count Auto Di ffon 09-12-2024 Basophils (Bld) [#/Vol] 0.0 10*3/uL Normal 0.0-0.2 [facility] Comment on above: Result Comment: PERF ORMED BY: [facility] [address] [place] [address] PATHOLOGIST SALES AND SERVICE ADVISOR AKILAH LOMBARDO M.D. Performed By: #### P T, CMP, BNP, HS TROP, CK, CBC ####[address] Basophils/100 WBC (Bld) 0.2 % Normal . [facility] Comment on above: Performed By: #### P T, CMP, BNP, HS TROP, CK, CBC ####[address] Eosinophils (Bld) [#/Vol] 0.2 10*3/uL Normal 0.0-0.45 [facility] Comment on above: Performed By: #### P T, CMP, BNP, HS TROP, CK, CBC ####[address] Eosinophils/100 WBC (Bld) 2.0 % Normal . [facility] Comment on above: Performed By: #### P T, CMP, BNP, HS TROP, CK, CBC ####[address] Erythrocyte distribution width (RBC) [Ratio] 15.1 % Normal 11.9-15.3 [facility] Comment on above: Performed By: #### P T, CMP, BNP, HS TROP, CK, CBC ####[address] Hematocrit (Bld) [Volume fraction] 49.4 % Significant change up 34.0-46.4 [facility] Comment on above: Performed By: #### P T, CMP, BNP, HS TROP, CK, CBC ####[address] Hemoglobin (Bld) [Mass/Vol] 16.2 g/dL High 11.8-15.4 [facility] Comment on above: Performed By: #### P T, CMP, BNP, HS TROP, CK, CBC ####[address] Lymphocytes (Bld) [#/Vol] 0.9 10*3/uL Low 1.00-4.8 [facility] Comment on above: Performed By: #### P T, CMP, BNP, HS TROP, CK, CBC ####[address] Lymphocytes/100 WBC (Bld) 11.4 % Normal . [facility] Comment on above: Performed By: #### P T, CMP, BNP, HS TROP, CK, CBC ####[address] MCH (RBC) [Entitic mass] 30.6 pg Normal 24.7-34.3 [facility] Comment on above: Performed By: #### P T, CMP, BNP, HS TROP, CK, CBC ####[address] MCV (RBC) [Entitic vol] 93.2 fL Normal 80-100 [facility] Comment on above: Performed By: #### P T, CMP, BNP, HS TROP, CK, CBC ####[address] Mean Corpuscular HGB Conc 32.9 g/dL Normal 32.0-35.0 [facility] Comment on above: Performed By: #### P T, CMP, BNP, HS TROP, CK, CBC ####[address] Monocytes (Bld) [#/Vol] 0.5 10*3/uL Normal 0.0-0.8 [facility] Comment on above: Performed By: #### P T, CMP, BNP, HS TROP, CK, CBC ####[address] Monocytes/100 WBC (Bld) 16.23 % Normal 0.00-20.00 [facility] Comment on above: Performed By: #### P T, CMP, BNP, HS TROP, CK, CBC ####[address] Monocytes/100 WBC (Bld) 5.7 % Normal . [facility] Comment on above: Performed By: #### P T, CMP, BNP, HS TROP, CK, CBC ####[address] Neutrophils (Bld) [#/Vol] 6.5 10*3/uL Normal 1.8-7.7 [facility] Comment on above: Performed By: #### P T, CMP, BNP, HS TROP, CK, CBC ####[address] Neutrophils/100 WBC (Bld) 80.7 % Normal . [facility] Comment on above: Performed By: #### P T, CMP, BNP, HS TROP, CK, CBC ####[address] NRBC% 0.6 /100{WBC} High 0-0.5 [facility] Comment on above: Performed By: #### P T, CMP, BNP, HS TROP, CK, CBC ####[address] Platelet mean volume (Bld) [Entitic vol] 8.4 fL Normal 6.3-10.7 [facility] Comment on above: Performed By: #### P T, CMP, BNP, HS TROP, CK, CBC ####[address] Platelets (Bld) [#/Vol] 196 10*3/uL Normal 150-450 [facility] Comment on above: Performed By: #### P T, CMP, BNP, HS TROP, CK, CBC ####[address] RBC (Bld) [#/Vol] 5.30 10*6/uL High 3.60-5.00 [facility] Comment on above: Performed By: #### P T, CMP, BNP, HS TROP, CK, CBC ####[address] WBC (Bld) [#/Vol] 8.0 10*3/uL Normal 3.8-11.6 [facility] Comment on above: Performed By: #### P T, CMP, BNP, HS TROP, CK, CBC ####[address] Comprehensive Metabolic Pane violeta 09-12-2024 Albumin [Mass/Vol] 4.0 g/dL Normal 3.5-5.7 [facility] Comment on above: Performed By: #### P T, CMP, BNP, HS TROP, CK, CBC ####[address] Albumin/Globulin [Mass ratio] 1.4 {ratio} Normal [facility] Comment on above: Performed By: #### P T, CMP, BNP, HS TROP, CK, CBC ####[address] ALP [Catalytic activity/Vol] 90 U/L Normal 34-104 [facility] Comment on above: Performed By: #### P T, CMP, BNP, HS TROP, CK, CBC ####[address] ALT [Catalytic activity/Vol] 20 U/L Normal 7-52 [facility] Comment on above: Performed By: #### P T, CMP, BNP, HS TROP, CK, CBC ####[address] Anion gap [Moles/Vol] 14.8 mmol/L Normal 6.0-15.0 [facility] Comment on above: Performed By: #### P T, CMP, BNP, HS TROP, CK, CBC ####[address] AST [Catalytic activity/Vol] 28 U/L Normal 13-39 [facility] Comment on above: Performed By: #### P T, CMP, BNP, HS TROP, CK, CBC ####[address] Bilirubin [Mass/Vol] 1.0 mg/dL Normal 0.3-1.0 [facility] Comment on above: Performed By: #### P T, CMP, BNP, HS TROP, CK, CBC ####[address] Calcium [Mass/Vol] 9.5 mg/dL Normal 8.6-10.3 [facility] Comment on above: Performed By: #### P T, CMP, BNP, HS TROP, CK, CBC ####[address] Chloride [Moles/Vol] 105 mmol/L Normal 98-107 [facility] Comment on above: Performed By: #### P T, CMP, BNP, HS TROP, CK, CBC ####[address] CO2 [Moles/Vol] 23.8 mmol/L Normal 21.0-31.0 [facility] Comment on above: Performed By: #### P T, CMP, BNP, HS TROP, CK, CBC ####[address] Creatinine [Mass/Vol] 1.22 mg/dL High 0.60-1.20 [facility] Comment on above: Performed By: #### P T, CMP, BNP, HS TROP, CK, CBC ####[address] Creatinine Clr Calc Pharmacy 30.27 Normal [facility] Comment on above: Result Comment: PERF ORMED BY: [facility] [address] [place] [address] PATHOLOGIST SALES AND SERVICE ADVISOR AKILAH LOMBARDO M.D. Performed By: #### P T, CMP, BNP, HS TROP, CK, CBC ####[address] Estimated GFR 44.584 mL/Min Normal [facility] Comment on above: Performed By: #### P T, CMP, BNP, HS TROP, CK, CBC ####[address] Globulin (S) [Mass/Vol] 2.8 g/dL Normal [facility] Comment on above: Performed By: #### P T, CMP, BNP, HS TROP, CK, CBC ####[address] Glucose [Mass/Vol] 110 mg/dL High 70-100 [facility] Comment on above: Result Comment: [facility] Glucose Reference Range is dependent on time and content of last meal. Glucose of more than 200 mg/dL in a nonstressed, ambulatory subject supports the diagnosis of Diabetes Mellitus. ADA recommended reference range Performed By: #### P T, CMP, BNP, HS TROP, CK, CBC ####[address] Potassium [Moles/Vol] 3.6 mmol/L Normal 3.5-5.1 [facility] Comment on above: Performed By: #### P T, CMP, BNP, HS TROP, CK, CBC ####[address] Protein [Mass/Vol] 6.8 g/dL Normal 6.4-8.9 [facility] Comment on above: Performed By: #### P T, CMP, BNP, HS TROP, CK, CBC ####[address] Sodium [Moles/Vol] 140 mmol/L Normal 136-145 [facility] Comment on above: Performed By: #### P T, CMP, BNP, HS TROP, CK, CBC ####[address] Urea nitrogen [Mass/Vol] 29 mg/dL High 7-25 [facility] Comment on above: Performed By: #### P T, CMP, BNP, HS TROP, CK, CBC ####[facility] [place] [address] [facility] Creatine Kinaseon 09-12-2024 CK [Catalytic activity/Vol] 53 U/L Normal 30-223 [facility] Comment on above: Performed By: #### P T, CMP, BNP, HS TROP, CK, CBC ####[place] [address] [place] [address] [facility] Creatine kinase [Enzymatic a ctivity/volume] in Serum or PlasmaOrdered By: Gracia Craig on 09-12-2024 CK [Catalytic activity/Vol] Creatine kinase [Enzymatic activity/volume] in Serum or Plasma 30- [facility] Creatinine [Mass/volume] in Serum or PlasmaOrdered By: Gracia Craig on 09-12-2024 Creatinine [Mass/Vol] Creatinine [Mass/v olume] in Serum or Plasma High 0.60-1.20 [facility] ECG 12 lead ECGon 09-12-2024 ECG 12 lead ECG [facility] [place] [address] Electrocardiograph Report Signed Patient: Austin Golden MR#: [id number] 8 : 1940 Acct:[id number] Age/Sex: 83 / F ADM Date: 09/12/24 Loc: ER Room: Type: [facility] ER Attending Dr: Ordering Provider: Gracia [...] Electronic ventricular pacemaker Confirmed by Vipin Awad ([id number]) on 2024 6:02:22 PM Referred By: Electronically Signed By: Vipin Awad Transcribed By: MUS Signed By Vipin Awad MD 09/14/24 1802 Normal [facility] Eosinophils Auto (Bld) [#/Vo l]Ordered By: Gracia Craig on 09-12-2024 Eosinophils (Bld) [#/Vol] Automated eosinophil count 0.0-0.45 [facility] Eosinophils/100 WBC Auto (Bl d)Ordered By: Gracia Craig on 09-12-2024 Eosinophils/100 WBC (Bld) Automated eosinophil % . [facility] Erythrocyte distribution wid th Auto (RBC) [Ratio]Ordered By: Gracia Craig on 09-12-2024 Erythrocyte distribution width (RBC) [Ratio] Erythrocyte distribution width [Ratio] by Automated count 11.9-15.3 [facility] Globulin Calc (S) [Mass/Vol] Ordered By: Gracia Craig on 09-12-2024 Globulin (S) [Mass/Vol] Serum globulin measurement by calculation (mass/volume) [facility] Glucose [Mass/volume] in Ser um or PlasmaOrdered By: Gracia Craig on 09-12-2024 Glucose [Mass/Vol] Glucose [Mass/volume ] in Serum or Plasma High 70-100 [facility] Comment on above: ADA recommended refe [...] by Automated count Invalid Interpretation Code 34.0-46.4 [facility] Comment on above: Delta: 40.2 on 09/11-5 Hemoglobin [Mass/volume] in BloodOrdered By: Gracia Craig on 09-12-2024 Hemoglobin (Bld) [Mass/Vol] Hemoglobin [Mass/volume] in Blood High 11.8-15.4 [facility] INR in Platelet poor plasma by Coagulation assayOrdered By: Gracia rCaig on 09-12-2024 INR Coag (PPP) [Relative time] INR in Platelet poor plasma by Coagulation assay [facility] Comment on above: INR Therapeutic [...] erythrocytes in Blood by Automated coun 3.8-11.6 [facility] Lymphocytes Auto (Bld) [#/Vo l]Ordered By: Gracia Craig on 09-12-2024 Lymphocytes (Bld) [#/Vol] Lymphocytes [#/volume] in Blood by Automated count Low 1.00-4.8 [facility] Lymphocytes/100 WBC Auto (Bl d)Ordered By: Gracia Craig on 09-12-2024 Lymphocytes/100 WBC (Bld) Lymphocytes/100 leukocytes in Blood by Automated count . [facility] MCH Auto (RBC) [Entitic mass ]Ordered By: Gracia Craig 09-12-2024 MCH (RBC) [Entitic mass] MCH [Entitic mass] by Automated count 24.7-34.3 [facility] MCHC Auto (RBC) [Mass/Vol]Or dered By: Gracia Craig on 09-12-2024 MCHC (RBC) [Mass/Vol] MCHC [Mass/volume] by Automated count 32.0-35.0 [facility] MCV Auto (RBC) [Entitic vol] Ordered By: Gracia Craig 09-12-2024 MCV (RBC) [Entitic vol] MCV [Entitic volume] by Automated count 80-100 [facility] Monocyte distribution width [Entitic volume] in Blood by AutomatedOrdered By: Gracia Craig 09-12-2024 Monocyte distribution width Auto (Bld) [Entitic vol] Monocyte distribution width [Entitic volume] in Blood by Automated 0.00-20.00 [facility] Monocytes Auto (Bld) [#/Vol] Ordered By: Gracia Craig on 09-12-2024 Monocytes (Bld) [#/Vol] Automated blood monocyte count 0.0-0.8 [facility] Monocytes/100 WBC Auto (Bld) Ordered By: Gracia Craig on 09-12-2024 Monocytes/100 WBC (Bld) Automated monocyte % . [facility] Natriuretic peptide B [Mass/ Vol]Ordered By: Gracia Craig on 09-12-2024 Natriuretic peptide B (Bld) [Mass/Vol] BNP ser/plas High 5-100 [facility] Neutrophils Auto (Bld) [#/Vo l]Ordered By: Gracia Craig on 09-12-2024 Neutrophils (Bld) [#/Vol] Neutrophils [#/volume] in Blood by Automated count 1.8-7.7 [facility] Neutrophils/100 WBC Auto (Bl d)Ordered By: Gracia Craig on 09-12-2024 Neutrophils/100 WBC (Bld) Automated neutrophil % . [facility] No Panel InformationOrdered By: Gracia Craig on 09-12-2024 Estimated GFR (CKD-EPI) 44.584 mL/Min [facility] Creatinine Clearance (Chem 30.27 [facility] Nucleated erythrocytes [Pres ence] in Blood by Automated countOrdered By: Graciacatrina Craig 09-12-2024 Nucleated RBC Auto Ql (Bld) Nucleated erythrocytes [Presence] in Blood by Automated count High 0-0.5 [facility] Platelet mean volume Auto (B ld) [Entitic vol]Ordered By: Gracia Craig 09-12-2024 Platelet mean volume (Bld) [Entitic vol] Platelet mean volume [Entitic volume] in Blood by Automated count 6.3-10.7 [facility] Platelets Auto (Bld) [#/Vol] Ordered By: Gracia Craig on 09-12-2024 Platelets (Bld) [#/Vol] Platelets [#/volume] in Blood by Automated count 150-450 [facility] Potassium [Moles/volume] in Serum or PlasmaOrdered By: Gracia Craig 09-12-2024 Potassium [Moles/Vol] Potassium [Moles/v olume] in Serum or Plasma 3.5-5.1 [facility] Protein [Mass/volume] in Ser um or PlasmaOrdered By: Gracia Craig on 09-12-2024 Protein [Mass/Vol] Protein [Mass/volume ] in Serum or Plasma 6.4-8.9 [facility] Prothrombin Time INRon 09-12 INR Coag (PPP) [Relative time] 1.6 {INR} Normal [facility] Comment on above: Result [...] heart valves: 3 - 4.5 PERFORMED BY: [facility] [address] [place] [address] PATHOLOGIST SALES AND SERVICE ADVISOR KAILAH LOMBARDO M.D. Performed By: #### P T, CMP, BNP, HS TROP, CK, CBC ####[facility] [address] [place] [address] [facility] PT Coag (PPP) [Time] 18.3 s High 9.0-12.9 [facility] Comment on above: Result Comment: A he matocrit value greater than 55% may lead to inaccurate results in coagulation testing. Patients having hematocrit values >55% require a special collection tube for coagulation studies. Please contact the laboratory at [phone] for redraw instructions. Performed By: #### P T, CMP, BNP, HS TROP, CK, CBC ####[facility] [address] [place] [address] [facility] Prothrombin time (PT)Ordered By: Gracia Craig on 09-12-2024 PT Coag (PPP) [Time] Prothrombin time (PT) High 9.0- 12.9 [facility] Comment on above: A hematocrit value g reater than 55% may lead to inaccurate results in coagulation testing. Patients having hematocrit values >55% require a special collection tube for coagulation studies. Please contact the laboratory at [phone] for redraw instructions. RBC Auto (Bld) [#/Vol]Ordere d By: Gracia Craig on 09-12-2024 RBC (Bld) [#/Vol] Erythrocytes [#/volu me] in Blood by Automated count High 3.60-5.00 [facility] Respiratory specimen influen za A virus, influenza B virus, respiratory syncytical virOrdered By: Gracia Craig on 09-12-2024 SARS-CoV-2 (COVID-19) RNA GUILLERMO+probe Ql (Unsp spec) Respiratory specimen influenza A virus, influenza B virus, respiratory syncytical vir [facility] Serum or plasma albumin/glob ulin mass ratioOrdered By: Gracia Craig on 09-12-2024 Albumin/Globulin [Mass ratio] Serum or plasma albumin/globulin mass ratio [facility] Serum or plasma anion gap de terminationOrdered By: Gracia Craig on 09-12-2024 Anion gap [Moles/Vol] Serum or plasma an ion gap determination 6.0-15.0 [facility] Sodium [Moles/volume] in Ser um or PlasmaOrdered By: Gracia Craig on 09-12-2024 Sodium [Moles/Vol] Sodium [Moles/volume ] in Serum or Plasma 136-145 [facility] Troponin I High Sensitivityo n 09-12-2024 Troponin I High Sensitivity 24 High 0-15 [facility] Comment on above: Result Comment: The Troponin units of report have been changed to meet the Chest Pain Accreditation requirement, element EC5.M1l2. Troponin units are changed from pg/ml to ng/L. Also, the decimal is removed and results are in whole numbers. PERFORMED BY: [facility] [address] [place] [address] PATHOLOGIST SALES AND SERVICE ADVISOR AKILAH LOMBARDO M.D. Performed By: #### P T, CMP, BNP, HS TROP, CK, CBC ####[facility] [address] [place] [address] [facility] Troponin I.cardiac [Mass/vol ume] in Serum or Plasma by Detection limit <= 0.01 ng/Ordered By: Gracia Craig on 09-12-2024 Troponin I.cardiac DL <= 0.01 ng/mL [Mass/Vol] Troponin I.cardiac [Mass/volume] in Serum or Plasma by Detection limit <= 0.01 ng/ High 0-15 [facility] Comment on above: The Troponin units [...] [Mass/volume] in Serum or Plasma High 7-25 [facility] WBC Auto (Bld) [#/Vol]Ordere d By: Gracia Craig on 09-12-2024 WBC (Bld) [#/Vol] Leukocytes [#/volume ] in Blood by Automated count 3.8-11.6 [facility] Alanine aminotransferase [En zymatic activity/volume] in Serum or PlasmaOrdered By: Jazmin العلي on 09-11-2024 ALT [Catalytic activity/Vol] Alanine aminotransferase [Enzymatic activity/volume] in Serum or Plasma 7-52 [facility] Albumin [Mass/volume] in Ser um or Plasma by Bromocresol green (BCG) dye binding methoOrdered By: Jazmin لاعلي on 09-11-2024 Albumin BCG dye [Mass/Vol] Albumin [Mass/volume] in Serum or Plasma by Bromocresol green (BCG) dye binding metho 3.5-5.7 [facility] Alkaline phosphatase [Enzyma tic activity/volume] in Serum or PlasmaOrdered By: Jazmin العلي on 09-11-2024 ALP [Catalytic activity/Vol] Alkaline phosphatase [Enzymatic activity/volume] in Serum or Plasma 34-104 [facility] Aspartate aminotransferase [ Enzymatic activity/volume] in Serum or PlasmaOrdered By: Jazmin العلي on 09-11-2024 AST [Catalytic activity/Vol] Aspartate aminotransferase [Enzymatic activity/volume] in Serum or Plasma 13-39 [facility] B-Type Natriuretic Peptideon 09-11-2024 Natriuretic peptide B (Bld) [Mass/Vol] 195.0 pg/mL High 5-100 [facility] Comment on above: Result Comment: PERF ORMED BY: [facility] [address] [place] [address] PATHOLOGIST SALES AND SERVICE ADVISOR AKILAH LOMBARDO M.D. Performed By: #### C MP, BNP, CBC ####[facility] [place] [address] [facility] Basophils Auto (Bld) [#/Vol] Ordered By: Jazmin العلي on 09-11-2024 Basophils (Bld) [#/Vol] Automated basophil count 0.0-0.2 [facility] Basophils/100 WBC Auto (Bld) Ordered By: Jazmin العلي on 09-11-2024 Basophils/100 WBC (Bld) Automated basophil % . [facility] Bilirubin.total [Mass/volume ] in Serum or PlasmaOrdered By: Jazmin العلي on 09-11-2024 Bilirubin [Mass/Vol] Bilirubin.total [Mass/volume] in Serum or Plasma High 0.3-1.0 [facility] Calcium [Mass/volume] in Ser um or PlasmaOrdered By: Jazmin العلي on 09-11-2024 Calcium [Mass/Vol] Calcium [Mass/volume ] in Serum or Plasma 8.6-10.3 [facility] Carbon dioxide, total [Moles /volume] in Serum or PlasmaOrdered By: Jazmin العلي on 09-11-2024 CO2 [Moles/Vol] Carbon dioxide, tota l [Moles/volume] in Serum or Plasma 21.0-31.0 [facility] Chloride [Moles/volume] in S vaughn or PlasmaOrdered By: Jazmin العلي on 09-11-2024 Chloride [Moles/Vol] Chloride [Moles/vol ume] in Serum or Plasma 98-107 [facility] Complete Blood Count Auto Di ffon 09-11-2024 Basophils (Bld) [#/Vol] 0.1 10*3/uL Normal 0.0-0.2 [facility] Comment on above: Result Comment: PERF ORMED BY: [facility] [address] [place] [address] PATHOLOGIST SALES AND SERVICE ADVISOR AKILAH LOMBARDO M.D. Performed By: #### C MP, BNP, CBC ####[address] Basophils/100 WBC (Bld) 0.6 % Normal . [facility] Comment on above: Performed By: #### C MP, BNP, CBC ####[address] Eosinophils (Bld) [#/Vol] 0.2 10*3/uL Normal 0.0-0.45 [facility] Comment on above: Performed By: #### C MP, BNP, CBC ####[address] Eosinophils/100 WBC (Bld) 1.9 % Normal . [facility] Comment on above: Performed By: #### C MP, BNP, CBC ####[address] Erythrocyte distribution width (RBC) [Ratio] 15.1 % Normal 11.9-15.3 [facility] Comment on above: Performed By: #### C MP, BNP, CBC ####[address] Hematocrit (Bld) [Volume fraction] 40.2 % Normal 34.0-46.4 [facility] Comment on above: Performed By: #### C MP, BNP, CBC ####[address] Hemoglobin (Bld) [Mass/Vol] 13.5 g/dL Normal 11.8-15.4 [facility] Comment on above: Performed By: #### C MP, BNP, CBC ####[address] Lymphocytes (Bld) [#/Vol] 1.1 10*3/uL Normal 1.00-4.8 [facility] Comment on above: Performed By: #### C MP, BNP, CBC ####[address] Lymphocytes/100 WBC (Bld) 12.0 % Normal . [facility] Comment on above: Performed By: #### C MP, BNP, CBC ####[address] MCH (RBC) [Entitic mass] 30.6 pg Normal 24.7-34.3 [facility] Comment on above: Performed By: #### C MP, BNP, CBC ####[address] MCV (RBC) [Entitic vol] 90.9 fL Normal 80-100 [facility] Comment on above: Performed By: #### C MP, BNP, CBC ####[address] Mean Corpuscular HGB Conc 33.7 g/dL Normal 32.0-35.0 [facility] Comment on above: Performed By: #### C MP, BNP, CBC ####[address] Monocytes (Bld) [#/Vol] 0.7 10*3/uL Normal 0.0-0.8 [facility] Comment on above: Performed By: #### C MP, BNP, CBC ####[address] Monocytes/100 WBC (Bld) 7.6 % Normal . [facility] Comment on above: Performed By: #### C MP, BNP, CBC ####[address] Neutrophils (Bld) [#/Vol] 7.2 10*3/uL Normal 1.8-7.7 [facility] Comment on above: Performed By: #### C MP, BNP, CBC ####[address] Neutrophils/100 WBC (Bld) 77.9 % Normal . [facility] Comment on above: Performed By: #### C MP, BNP, CBC ####[address] NRBC% 0.1 /100{WBC} Normal 0-0.5 [facility] Comment on above: Performed By: #### C MP, BNP, CBC ####[address] Platelet mean volume (Bld) [Entitic vol] 8.4 fL Normal 6.3-10.7 [facility] Comment on above: Performed By: #### C MP, BNP, CBC ####[address] Platelets (Bld) [#/Vol] 245 10*3/uL Normal 150-450 [facility] Comment on above: Performed By: #### C MP, BNP, CBC ####[address] RBC (Bld) [#/Vol] 4.42 10*6/uL Normal 3.60-5.00 [facility] Comment on above: Performed By: #### C MP, BNP, CBC ####[address] WBC (Bld) [#/Vol] 9.2 10*3/uL Normal 3.8-11.6 [facility] Comment on above: Performed By: #### C MP, BNP, CBC ####[address] Comprehensive Metabolic Pane violeta 09-11-2024 Albumin [Mass/Vol] 4.2 g/dL Normal 3.5-5.7 [facility] Comment on above: Performed By: #### C MP, BNP, CBC ####[address] Albumin/Globulin [Mass ratio] 1.8 {ratio} Normal [facility] Comment on above: Performed By: #### C MP, BNP, CBC ####[address] ALP [Catalytic activity/Vol] 78 U/L Normal 34-104 [facility] Comment on above: Result Comment: PERF ORMED BY: [facility] [address] [place] [address] PATHOLOGIST SALES AND SERVICE ADVISOR AKILAH LOMBARDO M.D. Performed By: #### C MP, BNP, CBC ####[address] ALT [Catalytic activity/Vol] 19 U/L Normal 7-52 [facility] Comment on above: Performed By: #### C MP, BNP, CBC ####[address] Anion gap [Moles/Vol] 13.5 mmol/L Normal 6.0-15.0 [facility] Comment on above: Performed By: #### C MP, BNP, CBC ####[address] AST [Catalytic activity/Vol] 28 U/L Normal 13-39 [facility] Comment on above: Performed By: #### C MP, BNP, CBC ####[address] Bilirubin [Mass/Vol] 1.2 mg/dL High 0.3-1.0 [facility] Comment on above: Performed By: #### C MP, BNP, CBC ####[address] Calcium [Mass/Vol] 9.8 mg/dL Normal 8.6-10.3 [facility] Comment on above: Performed By: #### C MP, BNP, CBC ####[address] Chloride [Moles/Vol] 103 mmol/L Normal 98-107 [facility] Comment on above: Performed By: #### C MP, BNP, CBC ####[address] CO2 [Moles/Vol] 29.3 mmol/L Normal 21.0-31.0 [facility] Comment on above: Performed By: #### C MP, BNP, CBC ####[address] Creatinine [Mass/Vol] 1.39 mg/dL High 0.60-1.20 [facility] Comment on above: Performed By: #### C MP, BNP, CBC ####[address] Estimated GFR 38.123 mL/Min Normal [facility] Comment on above: Performed By: #### C MP, BNP, CBC ####[address] Globulin (S) [Mass/Vol] 2.4 g/dL Normal [facility] Comment on above: Performed By: #### C MP, BNP, CBC ####[address] Glucose [Mass/Vol] 111 mg/dL High 70-100 [facility] Comment on above: Result Comment: [place] Glucose Reference Range is dependent on time and content of last meal. Glucose of more than 200 mg/dL in a nonstressed, ambulatory subject supports the diagnosis of Diabetes Mellitus. ADA recommended reference range Performed By: #### C MP, BNP, CBC ####[address] Potassium [Moles/Vol] 3.8 mmol/L Normal 3.5-5.1 [facility] Comment on above: Performed By: #### C MP, BNP, CBC ####[address] Protein [Mass/Vol] 6.6 g/dL Normal 6.4-8.9 [facility] Comment on above: Performed By: #### C MP, BNP, CBC ####[address] Sodium [Moles/Vol] 142 mmol/L Normal 136-145 [facility] Comment on above: Performed By: #### C MP, BNP, CBC ####[address] Urea nitrogen [Mass/Vol] 29 mg/dL High 7-25 [facility] Comment on above: Performed By: #### C MP, BNP, CBC ####[facility] [address] [place] [address] [facility] Creatinine [Mass/volume] in Serum or PlasmaOrdered By: Jazmin العلي on 09-11-2024 Creatinine [Mass/Vol] Creatinine [Mass/v olume] in Serum or Plasma High 0.60-1.20 [facility] Eosinophils Auto (Bld) [#/Vo l]Ordered By: Jazmin العلي on 09-11-2024 Eosinophils (Bld) [#/Vol] Automated eosinophil count 0.0-0.45 [facility] Eosinophils/100 WBC Auto (Bl d)Ordered By: Jazmin العلي on 09-11-2024 Eosinophils/100 WBC (Bld) Automated eosinophil % . [facility] Erythrocyte distribution wid th Auto (RBC) [Ratio]Ordered By: Jazmin العلي on 09-11-2024 Erythrocyte distribution width (RBC) [Ratio] Erythrocyte distribution width [Ratio] by Automated count 11.9-15.3 [facility] Globulin Calc (S) [Mass/Vol] Ordered By: Jazmin العلي 09-11-2024 Globulin (S) [Mass/Vol] Serum globulin measurement by calculation (mass/volume) [facility] Glucose [Mass/volume] in Ser um or PlasmaOrdered By: Jazmin العلي 09-11-2024 Glucose [Mass/Vol] Glucose [Mass/volume ] in Serum or Plasma High 70-100 [facility] Comment on above: ADA recommended refe rence rangeRandom Glucose Reference Range is dependent on time and content of last meal. Glucose of more than 200 mg/dL in a nonstressed, ambulatory subject supports the diagnosis of Diabetes Mellitus. Hematocrit Auto (Bld) [Volum e fraction]Ordered By: Jazmin العلي on 09-11-2024 Hematocrit (Bld) [Volume fraction] Hematocrit [Volume Fraction] of Blood by Automated count 34.0-46.4 [facility] Hemoglobin [Mass/volume] in BloodOrdered By: Jazmin العلي 09-11-2024 Hemoglobin (Bld) [Mass/Vol] Hemoglobin [Mass/volume] in Blood 11.8-15.4 [facility] Leukocytes [#/volume] correc anne marie for nucleated erythrocytes in Blood by Automated counOrdered By: Jazmin العلي 09-11-2024 WBC corrected for nucl RBC Auto (Bld) [#/Vol] Leukocytes [#/volume] corrected for nucleated erythrocytes in Blood by Automated coun 3.8-11.6 [facility] Lymphocytes Auto (Bld) [#/Vo l]Ordered By: Jazmin العلي on 09-11-2024 Lymphocytes (Bld) [#/Vol] Lymphocytes [#/volume] in Blood by Automated count 1.00-4.8 [facility] Lymphocytes/100 WBC Auto (Bl d)Ordered By: Jazmin العلي on 09-11-2024 Lymphocytes/100 WBC (Bld) Lymphocytes/100 leukocytes in Blood by Automated count . [facility] MCH Auto (RBC) [Entitic mass ]Ordered By: Jazmin العلي on 09-11-2024 MCH (RBC) [Entitic mass] MCH [Entitic mass] by Automated count 24.7-34.3 [facility] MCHC Auto (RBC) [Mass/Vol]Or dered By: Jazmin العلي on 09-11-2024 MCHC (RBC) [Mass/Vol] MCHC [Mass/volume] by Automated count 32.0-35.0 [facility] MCV Auto (RBC) [Entitic vol] Ordered By: Jazmin العلي on 09-11-2024 MCV (RBC) [Entitic vol] MCV [Entitic volume] by Automated count 80-100 [facility] Monocytes Auto (Bld) [#/Vol] Ordered By: Jazmin العلي on 09-11-2024 Monocytes (Bld) [#/Vol] Automated blood monocyte count 0.0-0.8 [facility] Monocytes/100 WBC Auto (Bld) Ordered By: Jazmin العلي on 09-11-2024 Monocytes/100 WBC (Bld) Automated monocyte % . [facility] Natriuretic peptide B [Mass/ Vol]Ordered By: Jazmin العلي on 09-11-2024 Natriuretic peptide B (Bld) [Mass/Vol] BNP ser/plas High 5-100 [facility] Neutrophils Auto (Bld) [#/Vo l]Ordered By: Jazmin العلي on 09-11-2024 Neutrophils (Bld) [#/Vol] Neutrophils [#/volume] in Blood by Automated count 1.8-7.7 [facility] Neutrophils/100 WBC Auto (Bl d)Ordered By: Jazmin العلي on 09-11-2024 Neutrophils/100 WBC (Bld) Automated neutrophil % . [facility] No Panel InformationOrdered By: Jazmin العلي on 09-11-2024 Estimated GFR (CKD-EPI) 38.123 mL/Min [facility] Creatinine Clearance (Chem N/A [facility] Nucleated erythrocytes [Pres ence] in Blood by Automated countOrdered By: Jazmin العلي on 09-11-2024 Nucleated RBC Auto Ql (Bld) Nucleated erythrocytes [Presence] in Blood by Automated count 0-0.5 [facility] Platelet mean volume Auto (B ld) [Entitic vol]Ordered By: Jazmin العلي on 09-11-2024 Platelet mean volume (Bld) [Entitic vol] Platelet mean volume [Entitic volume] in Blood by Automated count 6.3-10.7 [facility] Platelets Auto (Bld) [#/Vol] Ordered By: Jazmin العلي on 09-11-2024 Platelets (Bld) [#/Vol] Platelets [#/volume] in Blood by Automated count 150-450 [facility] Potassium [Moles/volume] in Serum or PlasmaOrdered By: Jazmin العلي on 09-11-2024 Potassium [Moles/Vol] Potassium [Moles/v olume] in Serum or Plasma 3.5-5.1 [facility] Protein [Mass/volume] in Ser um or PlasmaOrdered By: Jazmin العلي 09-11-2024 Protein [Mass/Vol] Protein [Mass/volume ] in Serum or Plasma 6.4-8.9 [facility] RBC Auto (Bld) [#/Vol]Ordere d By: Jazmin العلي on 09-11-2024 RBC (Bld) [#/Vol] Erythrocytes [#/volu me] in Blood by Automated count 3.60-5.00 [facility] Serum or plasma albumin/glob ulin mass ratioOrdered By: Jazmin العلي on 09-11-2024 Albumin/Globulin [Mass ratio] Serum or plasma albumin/globulin mass ratio [facility] Serum or plasma anion gap de terminationOrdered By: Jazmin العلي on 09-11-2024 Anion gap [Moles/Vol] Serum or plasma an ion gap determination 6.0-15.0 [facility] Sodium [Moles/volume] in Ser um or PlasmaOrdered By: Jazmin العلي on 09-11-2024 Sodium [Moles/Vol] Sodium [Moles/volume ] in Serum or Plasma 136-145 [facility] Urea nitrogen [Mass/volume] in Serum or PlasmaOrdered By: Jazmin العلي on 09-11-2024 Urea nitrogen [Mass/Vol] Urea nitrogen [Mass/volume] in Serum or Plasma High 7-25 [facility] WBC Auto (Bld) [#/Vol]Ordere d By: Jazmin العلي on 09-11-2024 WBC (Bld) [#/Vol] Leukocytes [#/volume ] in Blood by Automated count 3.8-11.6 [facility] X-ray reportOrdered By: Juan Diego Carson on 09-11-2024 Study report [facility] [place] [address] XRay Report Signed Patient: Austin Golden MR#: [id number] : 1940 Acct:[id number] Age/Sex: 83 / F ADM Date: 5 Loc: XD Room: Type: [facility] Attending Dr: Jazmin العلي DO Copies [...] IS SEEN. Impression dictated by: Nnamdi Carson Jr. DMelitaOMelita09/11/2024 3:37 PM Dictation Location: [place] [address] Transcribed By: [facility] 09/11/24 1537 Dictated By: Nnamdi Carson Jr, DO 09/11/24 1536 Signed By: 09/11/24 1537 [facility] XR ribs RT min 3V w CXR1V*on 09-11-2024 XR ribs RT min 3V w CXR1V* [facility] [address] [place] [address] [place] [id number] XRay Report Signed Patient: Austin Golden MR#: [id number] : 1940 Acct:[id number] Age/Sex: 83 / F ADM Date: 09/11/24 Loc: XD Room: Type: [facility] Attending Dr: Jazmin العلي DO Copies [...] Carson Jr., D.O.09/11/2024 3:37 PM Dictation Location: [place] [address] Transcribed By: [facility] 09/11/24 1537 Dictated By: Nnamdi Carson Jr, DO 09/11/24 1536 Signed By: 09/11/24 153 Normal [facility] Influenza virus B Ag [Presen ce] in Upper respiratory specimen by Rapid immunoassayon 09-09-2024 FLUBV Ag IA.rapid Ql (Nph) Influenza virus B Ag [Presence] in Upper respiratory specimen by Rapid immunoassay [facility] No Panel Informationon 09-09 Influenza Type A (Rapid) Negative [facility] POC SARS CoV-2 Antigen Negative [facility] ECG 12 Leadon 09-05-2024 Atrial flutter with heart rate of [address]-T changes and intraventricular conduction delay [facility] Work Phone: X-ray reportOrdered By: Jadiel Borja on 09-05-2024 Study report [facility] [place] [address] XRay Report Signed Patient: Austin Golden MR#: [id number] : 1940 Acct:[id number] Age/Sex: 83 / F ADM Date: 5 Loc: XD Room: Type: [facility] Attending Dr: Yesica Astudillo MD Copies to: Yesica Astudillo MD~ Ordering Provider: Yesica Astudillo MD Date of Service: 09/05/24 XR/XR thoracic spine 2V: PAIN ([id number]) XR/XR cervical spine 5V*: PAIN 5 views [...] Juanito Borja M.D.09/05/2024 4:55 PM Dictation Location: [place] [id number] Transcribed By: [facility] 09/05/241654 Dictated By: Juanito Borja DO 09/05/241650 Signed By: 09/05/241654 [facility] XR thoracic spine 2Von 09-05 XR thoracic spine 2V [facility] Main [place] [id number] XRay Report Signed Patient: Austin Golden MR#: [id number] 8 : 1940 Acct:[id number] Age/Sex: 83 / F ADM Date: 09/05/24 Loc: XD Room: Type: [facility] Attending Dr: Yesica Astudillo MD Copies to: Yesica Astudillo MD Ordering Provider: Yesica Astudillo MD Date of Service: 09/05/24 XR/XR thoracic spine 2V: PAIN ([id number]) XR/XR cervical spine 5V*: PAIN 5 views [...] Juanito Borja M.D.09/05/2024 4:55 PM Dictation [facility] Transcribed By: [facility] 09/05/241654 Dictated By: Juanito Borja DO 09/05/241650 Signed By: 09/05/24 165 Normal [facility] Progress Noteson 08-18-2024 Finance Intern Authentication Interface Message Text Documentation: Mode: Telephone Patient Patient Work Phone: Patient Cell Preferred phone: [phone] Consent: I confirmed patient understanding of the [...] Yung MD Division of Gastroenterology AND Hepatology [facility] 08/18/24, 5:01 PM Normal [facility] Telephone Encounteron 2023 Finance Intern Authentication Interface Message Text Situation: Call back Background: Pt would like to have a phone appointment with her doctor. Assessment: Please Advise Recommendation: Pt can be reached at Phone numbers Normal [facility] Progress Noteson 07-29-2024 Finance Intern Authentication Interface Message Text This encounter was opened in error. Patient was a No-Show (she was admitted to hospital at time of this appt). Please disregard. Normal [facility] Telephone Encounteron 2023 Finance Intern Authentication Interface Message Text Pt calling to reschedule the Televisit with Dr. Katie Yung that she missed on 07/22/2024 and the tree is not providing the option of televisits. Pt states that she was in the hospital for heart issues. Please return Pt's call at: . Thank you Normal [facility] Basic Metabolic Panelon -0 Anion gap [Moles/Vol] 10.8 mmol/L Normal 6.0-15.0 e [facility] Comment on above: Performed By: #### B MP, MG ####[facility] [address] [place] [address] [facility] Calcium [Mass/Vol] 8.6 mg/dL Normal 8.6-10.3 [facility] Comment on above: Performed By: #### B MP, MG ####[place] [id number] [facility] Chloride [Moles/Vol] 106 mmol/L Normal 98-107 [facility] Comment on above: Performed By: #### B MP, MG ####[place] [id number] [facility] CO2 [Moles/Vol] 29.0 mmol/L Normal 21.0-31.0 [facility] Comment on above: Performed By: #### B MP, MG ####[address] Creatinine [Mass/Vol] 1.25 mg/dL High 0.60-1.20 [facility] Comment on above: Performed By: #### B MP, MG ####[address] Creatinine Clr Calc Pharmacy 30.08 Normal [facility] Comment on above: Performed By: #### B MP, MG ####[address] Estimated GFR 43.302 mL/Min Normal [facility] Comment on above: Performed By: #### B MP, MG ####[address] Glucose [Mass/Vol] 102 mg/dL High 70-100 [facility] Comment on above: Result Comment: [place] Glucose Reference Range is dependent on time and content of last meal. Glucose of more than 200 mg/dL in a nonstressed, ambulatory subject supports the diagnosis of Diabetes Mellitus. ADA recommended reference range Performed By: #### B MP, MG ####[address] Potassium [Moles/Vol] 3.8 mmol/L Normal 3.5-5.1 [facility] Comment on above: Performed By: #### B MP, MG ####[place] [id number] [facility] Sodium [Moles/Vol] 142 mmol/L Normal 136-145 [facility] Comment on above: Performed By: #### B MP, MG ####[facility] [place] [id number] [facility] Urea nitrogen [Mass/Vol] 18 mg/dL Normal 7-25 [facility] Comment on above: Performed By: #### B MP, MG ####[facility] [address] [place] [address] [facility] Calcium [Mass/volume] in Ser um or PlasmaOrdered By: Fahad Kim on 07-24-2024 Calcium [Mass/Vol] Calcium [Mass/volume ] in Serum or Plasma 8.6-10.3 [facility] Carbon dioxide, total [Moles /volume] in Serum or PlasmaOrdered By: Fahad Kim on 07-24-2024 CO2 [Moles/Vol] Carbon dioxide, tota l [Moles/volume] in Serum or Plasma 21.0-31.0 [facility] Chloride [Moles/volume] in S vaughn or PlasmaOrdered By: Fahad Kim on 07-24-2024 Chloride [Moles/Vol] Chloride [Moles/vol ume] in Serum or Plasma 98-107 [facility] Creatinine [Mass/volume] in Serum or PlasmaOrdered By: Fahad Kim on 07-24-2024 Creatinine [Mass/Vol] Creatinine [Mass/v olume] in Serum or Plasma High 0.60-1.20 [facility] Glucose [Mass/volume] in Ser um or PlasmaOrdered By: Fahad Kim on 07-24-2024 Glucose [Mass/Vol] Glucose [Mass/volume ] in Serum or Plasma High 70-100 [facility] Comment on above: ADA recommended refe rence rangeRandom Glucose Reference Range is dependent on time and content of last meal. Glucose of more than 200 mg/dL in a nonstressed, ambulatory subject supports the diagnosis of Diabetes Mellitus. Magnesiumon 07-24-2024 Magnesium [Mass/Vol] 1.9 mg/dL Normal 1.9-2.7 [facility] Comment on above: Result Comment: PERF ORMED BY: [facility] [address] [place] [id number] PATHOLOGIST SALES AND SERVICE ADVISOR AKILAH LOMBARDO M.D. Performed By: #### B MP, MG ####[facility] [address] [place] [id number] [facility] Magnesium [Mass/volume] in S vaughn or PlasmaOrdered By: Fahad Kim on 07-24-2024 Magnesium [Mass/Vol] Magnesium [Mass/vol ume] in Serum or Plasma 1.9-2.7 [facility] No Panel InformationOrdered By: Fahad Kim on 07-24-2024 Estimated GFR (CKD-EPI) 43.302 mL/Min [facility] Pharmacy Creatinine Clearance (Chem 30.08 [facility] Potassium [Moles/volume] in Serum or PlasmaOrdered By: Fahad Kim on 07-24-2024 Potassium [Moles/Vol] Potassium [Moles/v olume] in Serum or Plasma 3.5-5.1 [facility] Serum or plasma anion gap de terminationOrdered By: Fahad Kim on 07-24-2024 Anion gap [Moles/Vol] Serum or plasma an ion gap determination 6.0-15.0 [facility] Sodium [Moles/volume] in Ser um or PlasmaOrdered By: Fahad Kim on 07-24-2024 Sodium [Moles/Vol] Sodium [Moles/volume ] in Serum or Plasma 136-145 [facility] Urea nitrogen [Mass/volume] in Serum or PlasmaOrdered By: Fahad Kim on 07-24-2024 Urea nitrogen [Mass/Vol] Urea nitrogen [Mass/volume] in Serum or Plasma 7-25 [facility] Basic Metabolic Panelon 12-0 Anion gap [Moles/Vol] 11.2 mmol/L Normal 6.0-15.0 Th e [facility] Comment on above: Performed By: #### JASMYN Waddell ####[facility] [place] [id number] [facility] Calcium [Mass/Vol] 8.7 mg/dL Normal 8.6-10.3 [facility] Comment on above: Performed By: #### JASMYN Waddell ####[facility] Chloride [Moles/Vol] 104 mmol/L Normal 98-107 [facility] Comment on above: Performed By: #### M Jake, BMP ####[place] [id number] [facility] CO2 [Moles/Vol] 28.7 mmol/L Normal 21.0-31.0 [facility] Comment on above: Performed By: #### M G, BMP ####[address] Creatinine [Mass/Vol] 1.26 mg/dL High 0.60-1.20 [facility] Comment on above: Performed By: #### Elvira Joseph, BMP ####[address] Creatinine Clr Calc Pharmacy 29.57 Normal [facility] Comment on above: Performed By: #### M Jake, BMP ####[address] Estimated GFR 42.890 mL/Min Normal [facility] Comment on above: Performed By: #### Elvira Joseph, BMP ####[address] Glucose [Mass/Vol] 92 mg/dL Normal 70-100 [facility] Comment on above: Result Comment: [facility] Glucose Reference Range is dependent on time and content of last meal. Glucose of more than 200 mg/dL in a nonstressed, ambulatory subject supports the diagnosis of Diabetes Mellitus. ADA recommended reference range Performed By: #### M G, BMP ####[address] Potassium [Moles/Vol] 3.9 mmol/L Normal 3.5-5.1 [facility] Comment on above: Performed By: #### M G, BMP ####[address] Sodium [Moles/Vol] 140 mmol/L Normal 136-145 [facility] Comment on above: Performed By: #### M G, BMP ####[address] [place] [address] [facility] Urea nitrogen [Mass/Vol] 19 mg/dL Normal 7-25 [facility] Comment on above: Performed By: #### Elvira Joseph, JASMYN ####[facility] [place] [address] [facility] Magnesiumon 07-23-2024 Magnesium [Mass/Vol] 1.9 mg/dL Normal 1.9-2.7 [facility] Comment on above: Result Comment: PERF ORMED BY: [facility] [address] [address] PATHOLOGIST SALES AND SERVICE ADVISOR AKILAH LOMBARDO M.D. Performed By: #### Elvira Joseph, JASMYN ####[facility] [place] [address] [facility] Alanine aminotransferase [En zymatic activity/volume] in Serum or PlasmaOrdered By: Aroldo Peña on 07-22-2024 ALT [Catalytic activity/Vol] Alanine aminotransferase [Enzymatic activity/volume] in Serum or Plasma [facility] Albumin [Mass/volume] in Ser um or Plasma by Bromocresol green (BCG) dye binding methoOrdered By: Aroldo Peña on 07-22-2024 Albumin BCG dye [Mass/Vol] Albumin [Mass/volume] in Serum or Plasma by Bromocresol green (BCG) dye binding metho Low 3.5-5.7 [facility] Alkaline phosphatase [Enzyma tic activity/volume] in Serum or PlasmaOrdered By: Aroldo Peña on 07-22-2024 ALP [Catalytic activity/Vol] Alkaline phosphatase [Enzymatic activity/volume] in Serum or Plasma 34-104 [facility] Aspartate aminotransferase [ Enzymatic activity/volume] in Serum or PlasmaOrdered By: Aroldo Peña on 07-22-2024 AST [Catalytic activity/Vol] Aspartate aminotransferase [Enzymatic activity/volume] in Serum or Plasma High 13-39 [facility] Bilirubin.total [Mass/volume ] in Serum or PlasmaOrdered By: Aroldo Peña on 07-22-2024 Bilirubin [Mass/Vol] Bilirubin.total [Mass/volume] in Serum or Plasma 0.3-1.0 [facility] Comprehensive Metabolic Pane violeta 07-22-2024 Albumin [Mass/Vol] 3.2 g/dL Low 3.5-5.7 [facility] Comment on above: Performed By: #### C MP ####[place] [id number] [facility] Albumin/Globulin [Mass ratio] 2.0 {ratio} Normal [facility] Comment on above: Performed By: #### C MP ####[place] [id number] [facility] ALP [Catalytic activity/Vol] 48 U/L Normal 34-104 [facility] Comment on above: Performed By: #### C MP ####[place] [id number] [facility] ALT [Catalytic activity/Vol] 28 U/L Normal 7-52 [facility] Comment on above: Performed By: #### C MP ####[place] [id number] [facility] Anion gap [Moles/Vol] 11.0 mmol/L Normal 6.0-15.0 Th e [facility] Comment on above: Performed By: #### C MP ####[place] [id number] [facility] AST [Catalytic activity/Vol] 40 U/L High 13-39 [facility] Comment on above: Performed By: #### C MP ####[place] [id number] [facility] Bilirubin [Mass/Vol] 0.6 mg/dL Normal 0.3-1.0 [facility] Comment on above: Performed By: #### C MP ####[place] [id number] [facility] Calcium [Mass/Vol] 8.6 mg/dL Normal 8.6-10.3 [facility] Comment on above: Performed By: #### C MP ####[place] [id number] [facility] Chloride [Moles/Vol] 105 mmol/L Normal 98-107 [facility] Comment on above: Performed By: #### C MP ####[place] [id number] [facility] CO2 [Moles/Vol] 28.7 mmol/L Normal 21.0-31.0 [facility] Comment on above: Performed By: #### C MP ####[place] [id number] [facility] Creatinine [Mass/Vol] 1.20 mg/dL Normal 0.60-1.20 [facility] Comment on above: Performed By: #### C MP ####[address] Creatinine Clr Calc Pharmacy 31.05 Normal [facility] Comment on above: Result Comment: PERF ORMED BY: [facility] [address] [place] [address] PATHOLOGIST SALES AND SERVICE ADVISOR AKILAH LOMBARDO M.D. Performed By: #### C MP ####[address] Estimated GFR 45.476 mL/Min Normal [facility] Comment on above: Performed By: #### C MP ####[address] Globulin (S) [Mass/Vol] 1.6 g/dL Normal [facility] Comment on above: Performed By: #### C MP ####[address] Glucose [Mass/Vol] 90 mg/dL Normal 70-100 [facility] Comment on above: Result Comment: [facility] Glucose Reference Range is dependent on time and content of last meal. Glucose of more than 200 mg/dL in a nonstressed, ambulatory subject supports the diagnosis of Diabetes Mellitus. ADA recommended reference range Performed By: #### C MP ####[address] Potassium [Moles/Vol] 3.7 mmol/L Normal 3.5-5.1 [facility] Comment on above: Performed By: #### C MP ####[address] [address] [place] Protein [Mass/Vol] 4.8 g/dL Low 6.4-8.9 [facility] Comment on above: Performed By: #### C MP ####[address] Sodium [Moles/Vol] 141 mmol/L Normal 136-145 [facility] Comment on above: Performed By: #### C MP ####[address] Urea nitrogen [Mass/Vol] 17 mg/dL Normal 7-25 [facility] Comment on above: Performed By: #### C MP ####[address] Globulin Calc (S) [Mass/Vol] Ordered By: Aroldo Peña on 07-22-2024 Globulin (S) [Mass/Vol] Serum globulin measurement by calculation (mass/volume) [facility] Protein [Mass/volume] in Ser um or PlasmaOrdered By: Aroldo Peña on 07-22-2024 Protein [Mass/Vol] Protein [Mass/volume ] in Serum or Plasma Low 6.4-8.9 [facility] Serum or plasma albumin/glob ulin mass ratioOrdered By: Aroldo Peña on 07-22-2024 Albumin/Globulin [Mass ratio] Serum or plasma albumin/globulin mass ratio [facility] Troponin I High Sensitivityo n 07-22-2024 Troponin I High Sensitivity 54.4 pg/mL Off scale high 0.0-15.0 [facility] Comment on above: Result Comment: Crit ical Result : Called to and read back by: PAYTON CESPEDES at: 07/22/2024 05:09:56 by:[email or web address] PERFORMED BY: [facility] [address] [place] [id number] PATHOLOGIST SALES AND SERVICE ADVISOR AKILAH LOMBARDO M.D. Performed By: #### H S TROP ####[address] Troponin I.cardiac [Mass/vol ume] in Serum or Plasma by Detection limit <= 0.01 ng/Ordered By: Aroldo Peña on 07-22-2024 Troponin I.cardiac DL <= 0.01 ng/mL [Mass/Vol] Troponin I.cardiac [Mass/volume] in Serum or Plasma by Detection limit <= 0.01 ng/ Critically high 0.0-15.0 [facility] Comment on above: Critical Result : Ca lled to and read back by: PAYTON CESPEDES at: 07/22/2024 05:09:56 by:[id number] Basic Metabolic Panelon 12-0 Anion gap [Moles/Vol] 11.0 mmol/L Normal 6.0-15.0 Th e [facility] Comment on above: Performed By: #### B MP, HS TROP ####[place] [address] [address] Calcium [Mass/Vol] 8.8 mg/dL Normal 8.6-10.3 [facility] Comment on above: Performed By: #### B MP, HS TROP ####[address] Chloride [Moles/Vol] 104 mmol/L Normal 98-107 [facility] Comment on above: Performed By: #### B MP, HS TROP ####[address] CO2 [Moles/Vol] 28.5 mmol/L Normal 21.0-31.0 [facility] Comment on above: Performed By: #### B MP, HS TROP ####[place] [id number] [facility] Creatinine [Mass/Vol] 1.27 mg/dL High 0.60-1.20 [facility] Comment on above: Performed By: #### B MP, HS TROP ####[place] [id number] [facility] Creatinine Clr Calc Pharmacy 29.34 Normal [facility] Comment on above: Result Comment: PERF ORMED BY: [facility] [address] [place] [id number] PATHOLOGIST SALES AND SERVICE ADVISOR AKILAH LOMBARDO M.D. Performed By: #### B MP, HS TROP ####[place] [address] [place] [id number] [facility] Estimated GFR 42.486 mL/Min Normal [facility] Comment on above: Performed By: #### B MP, HS TROP ####[facility] [place] [address] [facility] Glucose [Mass/Vol] 114 mg/dL High 70-100 [facility] Comment on above: Result Comment: [facility] Glucose Reference Range is dependent on time and content of last meal. Glucose of more than 200 mg/dL in a nonstressed, ambulatory subject supports the diagnosis of Diabetes Mellitus. ADA recommended reference range Performed By: #### B MP, HS TROP ####[place] [address] [address] Potassium [Moles/Vol] 3.5 mmol/L Normal 3.5-5.1 [facility] Comment on above: Performed By: #### B MP, HS TROP ####[place] [id number] [facility] Sodium [Moles/Vol] 140 mmol/L Normal 136-145 [facility] Comment on above: Performed By: #### B MP, HS TROP ####[place] [id number] [facility] Urea nitrogen [Mass/Vol] 18 mg/dL Normal 7-25 [facility] Comment on above: Performed By: #### B MP, HS TROP ####[place] [id number] [place] Basophils Auto (Bld) [#/Vol] on 07-21-2024 Basophils (Bld) [#/Vol] Automated basophil count 0.0-0.1 [facility] Basophils/100 WBC Auto (Bld) on 07-21-2024 Basophils/100 WBC (Bld) Automated basophil % 0.2-2.0 [facility] ECG 12 lead ECGon 07-21-2024 ECG 12 lead ECG [facility] Main [place] [address] [place] [address] Electrocardiograph Report Signed Patient: Austin Golden MR#: [id number] 8 : 1940 Acct:[id number] Age/Sex: 83 / F ADM Date: 07/21/24 Loc: Room: [address] [place] [address] Type: ADM IN Attending Dr: Fahad Kim [...] Electronic atrial pacemaker Confirmed by Vipin Awad ([id number]) on 07/22/2024 6:59:31 PM Referred By: Electronically Signed By: Vipin Awad Transcribed By: MUS Signed By Vipin Awad MD 07/22/24 2216 Normal [facility] Eosinophils/100 WBC Auto (Bl d)on 07-21-2024 Eosinophils/100 WBC (Bld) Automated eosinophil % 0.9-7.0 [facility] Erythrocyte distribution wid th Auto (RBC) [Ratio]on 07-21-2024 Erythrocyte distribution width (RBC) [Ratio] Erythrocyte distribution width [Ratio] by Automated count 11.0-15.0 [facility] Estimated glomerular filtrat ion rate (GFR) non- Americanon 07-21-2024 GFR/1.73 sq M.predicted among non-blacks MDRD (S/P/Bld) [Vol rate/Area] Estimated glomerular filtration rate (GFR) non- Low >=60 mL/min/1.7 3m 2 [facility] Globulin Calc (S) [Mass/Vol] on 07-21-2024 Globulin (S) [Mass/Vol] Serum globulin measurement by calculation (mass/volume) [facility] Hematocrit Auto (Bld) [Volum e fraction]on 07-21-2024 Hematocrit (Bld) [Volume fraction] Hematocrit [Volume Fraction] of Blood by Automated count 36.0-48.0 [facility] Hemoglobin [Mass/volume] in Bloodon 07-21-2024 Hemoglobin (Bld) [Mass/Vol] Hemoglobin [Mass/volume] in Blood 12.0-16.0 [facility] INR in Platelet poor plasma by Coagulation assayOrdered By: Aroldo Peña on 07-21-2024 INR Coag (PPP) [Relative time] INR in Platelet poor plasma by Coagulation assay [facility] Comment on above: INR Therapeutic [...] Albumin [Mass/Vol] 3.3 g/dL Low 3.4-5.0 [facility] ALP [Catalytic activity/Vol] 73 U/L 46-116 [facility] ALT [Catalytic activity/Vol] 45 U/L 14-59 [facility] Amylase [Catalytic activity/Vol] 21 U/L Low 25-115 [facility] AST [Catalytic activity/Vol] 40 U/L High 15-37 [facility] Bilirubin [Mass/Vol] 0.8 mg/dL 0.2-1.[address] [facility] Bilirubin.direct [Mass/Vol] 0.3 mg/dL High 0.0-0.2 [facility] Calcium [Mass/Vol] 10.1 mg/dL 8.5-10.1 [facility] Chloride [Moles/Vol] 103 mmol/L 98-[address] [facility] CO2 [Moles/Vol] 25.6 mmol/L 21.0-32.0 [facility] Creatinine [Mass/Vol] 1.65 mg/dL High 0.55-1.02 [facility] GFR/1.73 sq M.predicted MDRD (S/P/Bld) [Vol rate/Area] 36 mL/min/{1.73_m2} Low >=60 mL/min/1.7 3m 2 [facility] Glucose [Mass/Vol] 106 mg/dL 74-106 [facility] Lipase [Catalytic activity/Vol] 23.0 U/L 16.0-77.0 [facility] Potassium [Moles/Vol] 3.9 mmol/L 3.5-5.1 [facility] Protein [Mass/Vol] 6.6 g/dL 6.4-8.2 [facility] Sodium [Moles/Vol] 142 mmol/L 136-145 [facility] Urea nitrogen [Mass/Vol] 18.0 mg/dL 7.0-18.0 [facility] Urea nitrogen/Creatinine [Mass ratio] 10.9 mg/mg [facility] Laboratory - Hematology and Cell countson 07-21-2024 Immature granulocytes/100 WBC (Bld) 0.3 % 0.0-0.5 [facility] Leukocytes [#/volume] correc anne marie for nucleated erythrocytes in Blood by Automated counon 07-21-2024 WBC corrected for nucl RBC Auto (Bld) [#/Vol] Leukocytes [#/volume] corrected for nucleated erythrocytes in Blood by Automated coun High 4.0-11.0 [facility] Lymphocytes Auto (Bld) [#/Vo l]on 07-21-2024 Lymphocytes (Bld) [#/Vol] Lymphocytes [#/volume] in Blood by Automated count 1.2-3.8 [facility] Lymphocytes/100 WBC Auto (Bl d)on 07-21-2024 Lymphocytes/100 WBC (Bld) Lymphocytes/100 leukocytes in Blood by Automated count Low 20.5-60.0 [facility] MCH Auto (RBC) [Entitic mass ]on 07-21-2024 MCH (RBC) [Entitic mass] MCH [Entitic mass] by Automated count 26.7-34.0 [facility] MCHC Auto (RBC) [Mass/Vol]on 07-21-2024 MCHC (RBC) [Mass/Vol] MCHC [Mass/volume] by Automated count 29.9-35.2 [facility] MCV Auto (RBC) [Entitic vol] on 07-21-2024 MCV (RBC) [Entitic vol] MCV [Entitic volume] by Automated count 81.0-99.0 [facility] Magnesiumon 07-21-2024 Magnesium [Mass/Vol] 2.0 mg/dL Normal 1.9-2.7 [facility] Comment on above: Result Comment: PERF ORMED BY: [facility] [address] [place] [address] PATHOLOGIST SALES AND SERVICE ADVISOR AKILAH LOMBARDO M.D. Performed By: #### M G, PT ####[facility] [place] [id number] [facility] Monocytes Auto (Bld) [#/Vol] on 07-21-2024 Monocytes (Bld) [#/Vol] Automated blood monocyte count 0.3-0.8 [facility] Monocytes/100 WBC Auto (Bld) on 07-21-2024 Monocytes/100 WBC (Bld) Automated monocyte % 1.7-12.0 [facility] Neutrophils Auto (Bld) [#/Vo l]on 07-21-2024 Neutrophils (Bld) [#/Vol] Neutrophils [#/volume] in Blood by Automated count High 1.4-6.5 [facility] [facility] Neut[facility]ils[facility]100 WBC Auto (Bl d)on 07-21-2024 Neutrophils/100 WBC (Bld) Automated neutrophil % High 43.0-75.0 [facility] No Panel Informationon 07-21 Eosinophils # (Auto) 0.2 10 3/uL 0.0-0.7 [facility] Immature Granulocyte # (Auto) 0.04 10 3/uL High 0.00-0.03 [facility] Troponin I High Sensitivity 299.5 pg/mL Critically high 4.0-51.3 [facility] Comment on above: RESULTS CALLED TO EMILY AGUILAR(ROSA)/ERCUT-OFF POINTS HAVE BEEN ESTABLISHED BASED ON THE [...] volume] in Blood by Automated count 9.5-13.5 [facility] Platelets Auto (Bld) [#/Vol] on 07-21-2024 Platelets (Bld) [#/Vol] Platelets [#/volume] in Blood by Automated count 150-450 [facility] Prothrombin Time INRon 07-21 INR Coag (PPP) [Relative time] 1.3 {INR} Normal [facility] Comment on above: Result [...] heart valves: 3 - 4.5 PERFORMED BY: [facility] [address] [place] [address] PATHOLOGIST SALES AND SERVICE ADVISOR AKILAH LOMBARDO M.D. Performed By: #### M G, PT ####[address] [address] [facility] PT Coag (PPP) [Time] 14.6 s High 9.0-12.9 [facility] Comment on above: Result Comment: A he matocrit value greater than 55% may lead to inaccurate results in coagulation testing. Patients having hematocrit values >55% require a special collection tube for coagulation studies. Please contact the laboratory at [phone] for redraw instructions. Performed By: #### M G, PT ####[address] [place] [address] [facility] Prothrombin time (PT)Ordered By: Aroldo Peña on 07-21-2024 PT Coag (PPP) [Time] Prothrombin time (PT) High 9.0- 12.9 [facility] Comment on above: A hematocrit value g reater than 55% may lead to inaccurate results in coagulation testing. Patients having hematocrit values >55% require a special collection tube for coagulation studies. Please contact the laboratory at [phone] for redraw instructions. RBC Auto (Bld) [#/Vol]on RBC (Bld) [#/Vol] Erythrocytes [#/volu me] in Blood by Automated count 4.20-5.40 [facility] Serum or plasma albumin/glob ulin mass ratioon 07-21-2024 Albumin/Globulin [Mass ratio] Serum or plasma albumin/globulin mass ratio [facility] Serum or plasma anion gap de terminationon 07-21-2024 Anion gap [Moles/Vol] Serum or plasma an ion gap determination [facility] Telephone Encounteron 2023 Finance Intern Authentication Interface Message Text Situation: Call transfer from [facility] with breathing issues. Attempt to help with EMS but difficulties. Call to EMS but told unable to send and unable to conference call. Patient disconnected. Attempt to call but no answer. Call to [facility] managed by [facility] whom [facility] Patient lives in independent living [facility]. [facility] will call to have her checked out. Patient needs to get life alert. Background: See above. Cardiology with . Assessment: Message to Dr. Yung. Abimael Recommendation: Normal [facility] Finance Intern Authentication Interface Message Text Caller transferred to nurse for sx of: Shortness of Breath, Abdominal or Chest Pain, (Patient is not sure which it is). Normal [facility] Troponin I High Sensitivityo n 07-21-2024 Troponin I High Sensitivity 53.5 pg/mL Off scale high 0.0-15.0 [facility] Comment on above: Result Comment: Crit ical Result : Called to and read back by: JARED PANG at: 07/21/2024 23:08:48 by:[email or web address] PERFORMED BY: [facility] [address] [place] [address] PATHOLOGIST SALES AND SERVICE ADVISOR AKILAH LOMBARDO M.D. Performed By: #### B MP, HS TROP ####[address] [place] [address] [facility] Basic Metabolic Panelon 06-20 Anion gap [Moles/Vol] 11.1 mmol/L Normal 6.0-15.0 [facility] Comment on above: Performed By: #### B MP, CBC ####[address] [address] [facility] Calcium [Mass/Vol] 8.3 mg/dL Low 8.6-10.3 [facility] Comment on above: Performed By: #### B MP, CBC ####[id number] [facility] Chloride [Moles/Vol] 106 mmol/L Normal 98-107 [facility] Comment on above: Performed By: #### B MP, CBC ####[id number] [facility] CO2 [Moles/Vol] 25.5 mmol/L Normal 21.0-31.0 [facility] Comment on above: Performed By: #### B MP, CBC ####[id number] [facility] Creatinine [Mass/Vol] 1.07 mg/dL Normal 0.60-1.20 [facility] Comment on above: Performed By: #### B MP, CBC ####[id number] [facility] Creatinine Clr Calc Pharmacy 36.26 Normal [facility] Comment on above: Result Comment: PERF ORMED BY: [facility] [id number] PATHOLOGIST SALES AND SERVICE ADVISOR AKILAH LOMBARDO M.D. Performed By: #### B MP, CBC ####[id number] [facility] Estimated GFR 52.185 mL/Min Normal [facility] Comment on above: Performed By: #### B MP, CBC ####[id number] [facility] Glucose [Mass/Vol] 111 mg/dL High 70-100 [facility] Comment on above: Result Comment: [place] Glucose Reference Range is dependent on time and content of last meal. Glucose of more than 200 mg/dL in a nonstressed, ambulatory subject supports the diagnosis of Diabetes Mellitus. ADA recommended reference range Performed By: #### B MP, CBC ####[facility] [id number] [facility] Potassium [Moles/Vol] 3.6 mmol/L Normal 3.5-5.1 [facility] Comment on above: Performed By: #### B MP, CBC ####[facility] Sodium [Moles/Vol] 139 mmol/L Normal 136-145 [facility] Comment on above: Performed By: #### B MP, CBC ####[facility] [id number] [facility] Urea nitrogen [Mass/Vol] 23 mg/dL Normal 7-25 [facility] Comment on above: Performed By: #### B MP, CBC ####[facility] [id number] [facility] Basophils Auto (Bld) [#/Vol] Ordered By: Shilpa Fenton on 07-03-2024 Basophils (Bld) [#/Vol] Automated basophil count 0.0-0.2 [facility] Basophils/100 WBC Auto (Bld) Ordered By: Shilpa Fenton on 07-03-2024 Basophils/100 WBC (Bld) Automated basophil % . [facility] Calcium [Mass/volume] in Ser um or PlasmaOrdered By: Shilpa Fenton on 07-03-2024 Calcium [Mass/Vol] Calcium [Mass/volume ] in Serum or Plasma Low 8.6-10.3 [facility] Carbon dioxide, total [Moles /volume] in Serum or PlasmaOrdered By: Shilpa Fenton on 07-03-2024 CO2 [Moles/Vol] Carbon dioxide, tota l [Moles/volume] in Serum or Plasma 21.0-31.0 [facility] Chloride [Moles/volume] in S vaughn or PlasmaOrdered By: Shilpa Fenton on 07-03-2024 Chloride [Moles/Vol] Chloride [Moles/vol ume] in Serum or Plasma 98-107 [facility] Complete Blood Count Auto Di ffon 07-03-2024 Basophils (Bld) [#/Vol] 0.0 10*3/uL Normal 0.0-0.2 [facility] Comment on above: Result Comment: PERF ORMED BY: [facility] [address] [place] [id number] PATHOLOGIST SALES AND SERVICE ADVISOR AKILAH LOMBARDO M.D. Performed By: #### B MP, CBC ####[address] Basophils/100 WBC (Bld) 0.3 % Normal . [facility] Comment on above: Performed By: #### B MP, CBC ####[address] Eosinophils (Bld) [#/Vol] 0.2 10*3/uL Normal 0.0-0.45 [facility] Comment on above: Performed By: #### B MP, CBC ####[address] Eosinophils/100 WBC (Bld) 2.3 % Normal . [facility] Comment on above: Performed By: #### B MP, CBC ####[address] Erythrocyte distribution width (RBC) [Ratio] 14.3 % Normal 11.9-15.3 [facility] Comment on above: Performed By: #### B MP, CBC ####[address] Hematocrit (Bld) [Volume fraction] 35.3 % Normal 34.0-46.4 [facility] Comment on above: Performed By: #### B MP, CBC ####[address] Hemoglobin (Bld) [Mass/Vol] 11.9 g/dL Normal 11.8-15.4 [facility] Comment on above: Performed By: #### B MP, CBC ####[address] Lymphocytes (Bld) [#/Vol] 1.1 10*3/uL Normal 1.00-4.8 [facility] Comment on above: Performed By: #### B MP, CBC ####[address] Lymphocytes/100 WBC (Bld) 10.9 % Normal . [facility] Comment on above: Performed By: #### B MP, CBC ####[address] MCH (RBC) [Entitic mass] 31.6 pg Normal 24.7-34.3 [facility] Comment on above: Performed By: #### B MP, CBC ####[address] MCV (RBC) [Entitic vol] 93.9 fL Normal 80-100 [facility] Comment on above: Performed By: #### B MP, CBC ####[address] Mean Corpuscular HGB Conc 33.7 g/dL Normal 32.0-35.0 [facility] Comment on above: Performed By: #### B MP, CBC ####[address] Monocytes (Bld) [#/Vol] 0.5 10*3/uL Normal 0.0-0.8 [facility] Comment on above: Performed By: #### B MP, CBC ####[address] Monocytes/100 WBC (Bld) 5.6 % Normal . [facility] Comment on above: Performed By: #### B MP, CBC ####[address] Neutrophils (Bld) [#/Vol] 7.9 10*3/uL High 1.8-7.7 [facility] Comment on above: Performed By: #### B MP, CBC ####[address] Neutrophils/100 WBC (Bld) 80.9 % Normal . [facility] Comment on above: Performed By: #### B MP, CBC ####[id number] [facility] NRBC% 0.1 /100{WBC} Normal 0-0.5 [facility] Comment on above: Performed By: #### B MP, CBC ####[address] Platelet mean volume (Bld) [Entitic vol] 8.7 fL Normal 6.3-10.7 [facility] Comment on above: Performed By: #### B MP, CBC ####[address] Platelets (Bld) [#/Vol] 227 10*3/uL Normal 150-450 [facility] Comment on above: Performed By: #### B MP, CBC ####[id number] [facility] RBC (Bld) [#/Vol] 3.76 10*6/uL Normal 3.60-5.00 [facility] Comment on above: Performed By: #### B MP, CBC ####[id number] [facility] WBC (Bld) [#/Vol] 9.8 10*3/uL Normal 3.8-11.6 [facility] Comment on above: Performed By: #### B MP, CBC ####[address] Creatinine [Mass/volume] in Serum or PlasmaOrdered By: Shilpa Fenton on 07-03-2024 Creatinine [Mass/Vol] Creatinine [Mass/v olume] in Serum or Plasma 0.60-1.20 [facility] Eosinophils Auto (Bld) [#/Vo l]Ordered By: Shilpa Fenton on 07-03-2024 Eosinophils (Bld) [#/Vol] Automated eosinophil count 0.0-0.45 [facility] Eosinophils/100 WBC Auto (Bl d)Ordered By: Shilpa Fenton on 07-03-2024 Eosinophils/100 WBC (Bld) Automated eosinophil % . [facility] Erythrocyte distribution wid th Auto (RBC) [Ratio]Ordered By: Shilpa Fenton on 07-03-2024 Erythrocyte distribution width (RBC) [Ratio] Erythrocyte distribution width [Ratio] by Automated count 11.9-15.3 [facility] Glucose [Mass/volume] in Ser um or PlasmaOrdered By: Shilpa Fenton on 07-03-2024 Glucose [Mass/Vol] Glucose [Mass/volume ] in Serum or Plasma High 70-100 [facility] Comment on above: ADA recommended refe rence rangeRandom Glucose Reference Range is dependent on time and content of last meal. Glucose of more than 200 mg/dL in a nonstressed, ambulatory subject supports the diagnosis of Diabetes Mellitus. Hematocrit Auto (Bld) [Volum e fraction]Ordered By: Shilpa Fenton on 07-03-2024 Hematocrit (Bld) [Volume fraction] Hematocrit [Volume Fraction] of Blood by Automated count 34.0-46.4 [facility] Hemoglobin [Mass/volume] in BloodOrdered By: Shilpa Fenton on 07-03-2024 Hemoglobin (Bld) [Mass/Vol] Hemoglobin [Mass/volume] in Blood 11.8-15.4 [facility] Leukocytes [#/volume] correc anne marie for nucleated erythrocytes in Blood by Automated counOrdered By: Shilpa Fenton on 07-03-2024 WBC corrected for nucl RBC Auto (Bld) [#/Vol] Leukocytes [#/volume] corrected for nucleated erythrocytes in Blood by Automated coun 3.8-11.6 [facility] Lymphocytes Auto (Bld) [#/Vo l]Ordered By: Shilpa Fenton on 07-03-2024 Lymphocytes (Bld) [#/Vol] Lymphocytes [#/volume] in Blood by Automated count 1.00-4.8 [facility] Lymphocytes/100 WBC Auto (Bl d)Ordered By: Shilpa Fenton on 07-03-2024 Lymphocytes/100 WBC (Bld) Lymphocytes/100 leukocytes in Blood by Automated count . [facility] MCH Auto (RBC) [Entitic mass ]Ordered By: Shilpa Fenton on 07-03-2024 MCH (RBC) [Entitic mass] MCH [Entitic mass] by Automated count 24.7-34.3 [facility] MCHC Auto (RBC) [Mass/Vol]Or dered By: Shilpa Fenton on 07-03-2024 MCHC (RBC) [Mass/Vol] MCHC [Mass/volume] by Automated count 32.0-35.0 [facility] MCV Auto (RBC) [Entitic vol] Ordered By: Shilpa Fenton on 07-03-2024 MCV (RBC) [Entitic vol] MCV [Entitic volume] by Automated count 80-100 [facility] Monocytes Auto (Bld) [#/Vol] Ordered By: Shilpa Fenton on 07-03-2024 Monocytes (Bld) [#/Vol] Automated blood monocyte count 0.0-0.8 [facility] Monocytes/100 WBC Auto (Bld) Ordered By: Shilpa Fenton on 07-03-2024 Monocytes/100 WBC (Bld) Automated monocyte % . [facility] Neutrophils Auto (Bld) [#/Vo l]Ordered By: Shilpa Fenton on 07-03-2024 Neutrophils (Bld) [#/Vol] Neutrophils [#/volume] in Blood by Automated count High 1.8-7.7 [facility] Neutrophils/100 WBC Auto (Bl d)Ordered By: Shilpa Fenton on 07-03-2024 Neutrophils/100 WBC (Bld) Automated neutrophil % . [facility] No Panel InformationOrdered By: Shilpa Fenton on 07-03-2024 Estimated GFR (CKD-EPI) 52.185 mL/Min [facility] Creatinine Clearance (Chem 36.26 [facility] Nucleated erythrocytes [Pres ence] in Blood by Automated countOrdered By: Shilpa Fenton on 07-03-2024 Nucleated RBC Auto Ql (Bld) Nucleated erythrocytes [Presence] in Blood by Automated count 0-0.5 [facility] Platelet mean volume Auto (B ld) [Entitic vol]Ordered By: Shilpa Fenton on 07-03-2024 Platelet mean volume (Bld) [Entitic vol] Platelet mean volume [Entitic volume] in Blood by Automated count 6.3-10.7 [facility] Platelets Auto (Bld) [#/Vol] Ordered By: Shilpa Fenton on 07-03-2024 Platelets (Bld) [#/Vol] Platelets [#/volume] in Blood by Automated count 150-450 [facility] Potassium [Moles/volume] in Serum or PlasmaOrdered By: Shilpa Fenton on 07-03-2024 Potassium [Moles/Vol] Potassium [Moles/v olume] in Serum or Plasma 3.5-5.1 [facility] RBC Auto (Bld) [#/Vol]Ordere d By: Shilpa Fenton on 07-03-2024 RBC (Bld) [#/Vol] Erythrocytes [#/volu me] in Blood by Automated count 3.60-5.00 [facility] Serum or plasma anion gap de terminationOrdered By: Shilpa Fenton on 07-03-2024 Anion gap [Moles/Vol] Serum or plasma an ion gap determination 6.0-15.0 [facility] Sodium [Moles/volume] in Ser um or PlasmaOrdered By: Shilpa Fenton on 07-03-2024 Sodium [Moles/Vol] Sodium [Moles/volume ] in Serum or Plasma 136-145 [facility] Urea nitrogen [Mass/volume] in Serum or PlasmaOrdered By: Shilpa eFnton on 07-03-2024 Urea nitrogen [Mass/Vol] Urea nitrogen [Mass/volume] in Serum or Plasma 7-25 [facility] WBC Auto (Bld) [#/Vol]Ordere d By: Shilpa Fenton on 07-03-2024 WBC (Bld) [#/Vol] Leukocytes [#/volume ] in Blood by Automated count 3.8-11.6 [facility] Basic Metabolic Panelon 06-20 Anion gap [Moles/Vol] 14.7 mmol/L Normal 6.0-15.0 [facility] Comment on above: Performed By: #### B MP ####[id number] [facility] Calcium [Mass/Vol] 8.4 mg/dL Low 8.6-10.3 [facility] Comment on above: Performed By: #### B MP ####[id number] [facility] Chloride [Moles/Vol] 104 mmol/L Normal 98-107 [facility] Comment on above: Performed By: #### B MP ####[id number] [facility] CO2 [Moles/Vol] 23.3 mmol/L Normal 21.0-31.0 [facility] Comment on above: Performed By: #### B MP ####[id number] [facility] Creatinine [Mass/Vol] 1.18 mg/dL Normal 0.60-1.20 [facility] Comment on above: Performed By: #### B MP ####[id number] [facility] Creatinine Clr Calc Pharmacy 32.31 Normal [facility] Comment on above: Result Comment: PERF ORMED BY: [facility] [address] [place] [address] PATHOLOGIST SALES AND SERVICE ADVISOR AKILAH LOMBARDO M.D. Performed By: #### B MP ####[id number] [facility] GFR/1.73 sq M.predicted MDRD (S/P/Bld) [Vol rate/Area] 46.403 mL/min/{1.73_m2} Normal [facility] Comment on above: Performed By: #### B MP ####[id number] [facility] Glucose [Mass/Vol] 166 mg/dL High 70-100 [facility] Comment on above: Result Comment: [place] om Glucose Reference Range is dependent on time and content of last meal. Glucose of more than 200 mg/dL in a nonstressed, ambulatory subject supports the diagnosis of Diabetes Mellitus. ADA recommended reference range Performed By: #### B MP ####[address] Potassium [Moles/Vol] 4.0 mmol/L Normal 3.5-5.1 [facility] Comment on above: Performed By: #### B MP ####[address] Sodium [Moles/Vol] 138 mmol/L Normal 136-145 [facility] Comment on above: Performed By: #### B MP ####[address] Urea nitrogen [Mass/Vol] 24 mg/dL Normal 7-25 [facility] Comment on above: Performed By: #### B MP ####[address] Anion gap [Moles/Vol] 12.9 mmol/L Normal 6.0-15.0 [facility] Comment on above: Performed By: #### B MP ####[address] Calcium [Mass/Vol] 8.4 mg/dL Low 8.6-10.3 [facility] Comment on above: Performed By: #### B MP ####[address] Chloride [Moles/Vol] 104 mmol/L Normal 98-107 [facility] Comment on above: Performed By: #### B MP ####[id number] [facility] CO2 [Moles/Vol] 24.2 mmol/L Normal 21.0-31.0 [facility] Comment on above: Performed By: #### B MP ####[address] Creatinine [Mass/Vol] 1.07 mg/dL Normal 0.60-1.20 [facility] Comment on above: Performed By: #### B MP ####[address] Creatinine Clr Calc Pharmacy 35.63 Normal [facility] Comment on above: Result Comment: PERF ORMED BY: [facility] [place] [address] PATHOLOGIST SALES AND SERVICE ADVISOR VITOR ZARATE M.D. Performed By: #### B MP ####[address] GFR/1.73 sq M.predicted MDRD (S/P/Bld) [Vol rate/Area] 52.185 mL/min/{1.73_m2} Normal [facility] Comment on above: Performed By: #### B MP ####[address] Glucose [Mass/Vol] 101 mg/dL High 70-100 [facility] Comment on above: Result Comment: [place] Glucose Reference Range is dependent on time and content of last meal. Glucose of more than 200 mg/dL in a nonstressed, ambulatory subject supports the diagnosis of Diabetes Mellitus. ADA recommended reference range Performed By: #### B MP ####[address] Potassium [Moles/Vol] 4.1 mmol/L Normal 3.5-5.1 [facility] Comment on above: Performed By: #### B MP ####[address] Sodium [Moles/Vol] 137 mmol/L Normal 136-145 [facility] Comment on above: Performed By: #### B MP ####[id number] [facility] Urea nitrogen [Mass/Vol] 23 mg/dL Normal 7-25 [facility] Comment on above: Performed By: #### B MP ####[id number] [facility] Complete Blood Count Auto Di ffon 07-02-2024 Basophils (Bld) [#/Vol] 0.1 10*3/uL Normal 0.0-0.2 [facility] Comment on above: Result Comment: PERF ORMED BY: [address] [place] [id number] PATHOLOGIST SALES AND SERVICE ADVISOR KAILAH LOMBARDO M.D. Performed By: #### C BC ####[address] Basophils/100 WBC (Bld) 1.3 % Normal . [facility] Comment on above: Performed By: #### C BC ####[address] Eosinophils (Bld) [#/Vol] 0.2 10*3/uL Normal 0.0-0.45 [facility] Comment on above: Performed By: #### C BC ####[address] Eosinophils/100 WBC (Bld) 1.9 % Normal . [facility] Comment on above: Performed By: #### C BC ####[address] Erythrocyte distribution width (RBC) [Ratio] 14.2 % Normal 11.9-15.3 [facility] Comment on above: Performed By: #### C BC ####[address] Hematocrit (Bld) [Volume fraction] 38.5 % Normal 34.0-46.4 [facility] Comment on above: Performed By: #### C BC ####[address] [id number] [facility] Hemoglobin (Bld) [Mass/Vol] 12.8 g/dL Normal 11.8-15.4 [facility] Comment on above: Performed By: #### C BC ####[address] Lymphocytes (Bld) [#/Vol] 1.7 10*3/uL Normal 1.00-4.8 [facility] Comment on above: Performed By: #### C BC ####[address] Lymphocytes/100 WBC (Bld) 19.1 % Normal . [facility] Comment on above: Performed By: #### C BC ####[place] [id number] [facility] MCH (RBC) [Entitic mass] 31.5 pg Normal 24.7-34.3 [facility] Comment on above: Performed By: #### C BC ####[place] [id number] [facility] MCV (RBC) [Entitic vol] 94.4 fL Normal 80-100 [facility] Comment on above: Performed By: #### C BC ####[address] Mean Corpuscular HGB Conc 33.3 g/dL Normal 32.0-35.0 [facility] Comment on above: Performed By: #### C BC ####[address] Monocytes (Bld) [#/Vol] 0.4 10*3/uL Normal 0.0-0.8 [facility] Comment on above: Performed By: #### C BC ####[place] [id number] [facility] Monocytes/100 WBC (Bld) 4.8 % Normal . [facility] Comment on above: Performed By: #### C BC ####[address] Neutrophils (Bld) [#/Vol] 6.7 10*3/uL Normal 1.8-7.7 [facility] Comment on above: Performed By: #### C BC ####[place] [id number] [facility] Neutrophils/100 WBC (Bld) 72.9 % Normal . [facility] Comment on above: Performed By: #### C BC ####[address] [address] [place] NRBC% 0.2 /100{WBC} Normal 0-0.5 [facility] Comment on above: Performed By: #### C BC ####[address] Platelet mean volume (Bld) [Entitic vol] 8.2 fL Normal 6.3-10.7 [facility] Comment on above: Performed By: #### C BC ####[address] Platelets (Bld) [#/Vol] 238 10*3/uL Normal 150-450 [facility] Comment on above: Performed By: #### C BC ####[address] [address] RBC (Bld) [#/Vol] 4.08 10*6/uL Normal 3.60-5.00 [facility] Comment on above: Performed By: #### C BC ####[address] WBC (Bld) [#/Vol] 9.1 10*3/uL Normal 3.8-11.6 [facility] Comment on above: Performed By: #### C BC ####[address] ECG 12 lead ECG 07-02-2024 ECG 12 lead ECG [facility] Main [place] [address] [place] [address] Electrocardiograph Report Signed Patient: Austin Golden MR#: [id number] 8 : 1940 Acct:[id number] Age/Sex: 83 / F ADM Date: 06/30/24 Loc: Room: [address] [place] [address] Type: ADM IN Attending Dr: Shilpa Fenton [...] Mac MD 1 09/01/23 1602 Normal [facility] ECG 12 [place] [address] Electrocardiograph Report Signed Patient: Austin Golden MR#: [id number] 8 : 1940 Acct:[id number] Age/Sex: 83 / F ADM Date: 06/30/24 Loc: Room: [address] [place] [address] Type: ADM IN Attending Dr: Shilpa Fenton [...] Mac MD 1 09/01/23 1600 Normal [facility] ECG post procedureon 024 ECG post procedure [place] [address] [place] [address] Electrocardiograph Report Signed Patient: Austin Golden MR#: [id number] 8 : 1940 Acct:[id number] Age/Sex: 83 / F ADM Date: 06/30/24 Loc: Room: [address] [place] [address] Type: ADM IN Attending Dr: Shilpa Fenton [...] Mac MD 1 09/01/23 1601 Normal [facility] Glucose Glucometer (BldC) [M ass/Vol]Ordered By: Shilpa Fenton on 07-02-2024 Glucose [Mass/Vol] Capillary blood gluc ose measurement by glucometer (mass/volume) [facility] Comment on above: Random Glucose Refer ence Range is dependent on time and content of last meal. Glucose of more than 200 mg/dL in a nonstressed, ambulatory subject supports the diagnosis of Diabetes Mellitus. Glucose Poct Glucometerson 09-01-2023 Glucose [Mass/Vol] 172 mg/dL Normal [facility] Comment on above: Result Comment: [place] om Glucose Reference Range is dependent on time and content of last meal. Glucose of more than 200 mg/dL in a nonstressed, ambulatory subject supports the diagnosis of Diabetes Mellitus. PERFORMED BY: [facility] [address] [place] [id number] PATHOLOGIST SALES AND SERVICE ADVISOR AKILAH LOMBARDO M.D. Performed By: #### G HEMANTH ####Point of Care testing, Basic Metabolic Panelon 06-20 Anion gap [Moles/Vol] 13.0 mmol/L Normal 6.0-15.0 [facility] Comment on above: Performed By: #### C BC, BMP ####[place] [id number] [facility] Calcium [Mass/Vol] 8.2 mg/dL Low 8.6-10.3 [facility] Comment on above: Performed By: #### C ABI, BMP ####[place] [id number] [facility] Chloride [Moles/Vol] 105 mmol/L Normal 98-107 [facility] Comment on above: Performed By: #### C ABI, BMP ####[place] [id number] [facility] CO2 [Moles/Vol] 26.1 mmol/L Normal 21.0-31.0 [facility] Comment on above: Performed By: #### C BC, BMP ####[place] [id number] [facility] Creatinine [Mass/Vol] 1.12 mg/dL Normal 0.60-1.20 [facility] Comment on above: Performed By: #### C BC, BMP ####[place] [id number] [facility] Creatinine Clr Calc Pharmacy 33.15 Normal [facility] Comment on above: Result Comment: PERF ORMED BY: [facility] [address] [place] [address] PATHOLOGIST SALES AND SERVICE ADVISOR VITOR ZARATE M.D. Performed By: #### C BC, BMP ####[place] [id number] [place] GFR/1.73 sq M.predicted MDRD (S/P/Bld) [Vol rate/Area] 49.402 mL/min/{1.73_m2} Normal [facility] Comment on above: Performed By: #### C BC, BMP ####[place] [id number] [facility] Glucose [Mass/Vol] 87 mg/dL Normal 70-100 [facility] Comment on above: Result Comment: [place] Glucose Reference Range is dependent on time and content of last meal. Glucose of more than 200 mg/dL in a nonstressed, ambulatory subject supports the diagnosis of Diabetes Mellitus. ADA recommended reference range Performed By: #### C BC, BMP ####[place] [id number] [facility] Potassium [Moles/Vol] 4.1 mmol/L Normal 3.5-5.1 [facility] Comment on above: Performed By: #### C BC, BMP ####[address] Sodium [Moles/Vol] 140 mmol/L Normal 136-145 [facility] Comment on above: Performed By: #### C BC, BMP ####[address] [address] [facility] Urea nitrogen [Mass/Vol] 24 mg/dL Normal 7-25 [facility] Comment on above: Performed By: #### C BC, BMP ####[place] [id number] [facility] Complete Blood Count Auto Di ffon 07-01-2024 Basophils (Bld) [#/Vol] 0.1 10*3/uL Normal 0.0-0.2 [facility] Comment on above: Result Comment: PERF ORMED BY: [facility] [address] [place] [id number] PATHOLOGIST SALES AND SERVICE ADVISOR VITOR ZARATE M.D. Performed By: #### C BC, BMP ####[place] [id number] [place] Basophils/100 WBC (Bld) 1.0 % Normal . [facility] Comment on above: Performed By: #### C BC, BMP ####[address] Eosinophils (Bld) [#/Vol] 0.2 10*3/uL Normal 0.0-0.45 [facility] Comment on above: Performed By: #### C BC, BMP ####[place] [id number] [facility] Eosinophils/100 WBC (Bld) 2.5 % Normal . [facility] Comment on above: Performed By: #### C BC, BMP ####[address] Erythrocyte distribution width (RBC) [Ratio] 14.0 % Normal 11.9-15.3 [facility] Comment on above: Performed By: #### C BC, BMP ####[address] Hematocrit (Bld) [Volume fraction] 37.0 % Normal 34.0-46.4 [facility] Comment on above: Performed By: #### C BC, BMP ####[address] Hemoglobin (Bld) [Mass/Vol] 12.4 g/dL Normal 11.8-15.4 [facility] Comment on above: Performed By: #### C BC, BMP ####[address] Lymphocytes (Bld) [#/Vol] 1.4 10*3/uL Normal 1.00-4.8 [facility] Comment on above: Performed By: #### C BC, BMP ####[place] [id number] [facility] Lymphocytes/100 WBC (Bld) 20.3 % Normal . [facility] Comment on above: Performed By: #### C BC, BMP ####[address] MCH (RBC) [Entitic mass] 31.8 pg Normal 24.7-34.3 [facility] Comment on above: Performed By: #### C BC, BMP ####[address] MCV (RBC) [Entitic vol] 95.0 fL Normal 80-100 [facility] Comment on above: Performed By: #### C BC, BMP ####[address] Mean Corpuscular HGB Conc 33.5 g/dL Normal 32.0-35.0 [facility] Comment on above: Performed By: #### C BC, BMP ####[address] Monocytes (Bld) [#/Vol] 0.5 10*3/uL Normal 0.0-0.8 [facility] Comment on above: Performed By: #### C ABI, BMP ####[address] Monocytes/100 WBC (Bld) 7.2 % Normal . [facility] Comment on above: Performed By: #### C ABI, BMP ####[address] Neutrophils (Bld) [#/Vol] 4.8 10*3/uL Normal 1.8-7.7 [facility] Comment on above: Performed By: #### C ABI, BMP ####[place] [id number] [facility] Neutrophils/100 WBC (Bld) 69.0 % Normal . [facility] Comment on above: Performed By: #### C ABI, BMP ####[address] NRBC% 0.2 /100{WBC} Normal 0-0.5 [facility] Comment on above: Performed By: #### C BC, BMP ####[address] Platelet mean volume (Bld) [Entitic vol] 8.9 fL Normal 6.3-10.7 [facility] Comment on above: Performed By: #### C BC, BMP ####[place] [address] [place] [id number] [facility] Platelets (Bld) [#/Vol] 231 10*3/uL Normal 150-450 [facility] Comment on above: Performed By: #### C BC, BMP ####[address] RBC (Bld) [#/Vol] 3.90 10*6/uL Normal 3.60-5.00 [facility] Comment on above: Performed By: #### C BC, BMP ####[place] [id number] [facility] WBC (Bld) [#/Vol] 7.0 10*3/uL Normal 3.8-11.6 [facility] Comment on above: Performed By: #### C BC, BMP ####[place] [id number] [facility] ECG 12 lead ECGon 07-01-2024 ECG 12 lead ECG [facility] [place] [address] Electrocardiograph Report Signed Patient: Austin Golden MR#: [id number] 8 : 1940 Acct:[id number] Age/Sex: 83 / F ADM Date: 06/30/24 Loc: Room: [address] [place] [address] Type: ADM IN Attending Dr: Shilpa Fenton [...] Mac MD 1 08/31/23 1729 Normal [facility] Troponin I High Sensitivityo n 07-01-2024 Troponin I High Sensitivity 92.3 pg/mL Off scale high 0.0-15.0 [facility] Comment on above: Result Comment: Crit ical Result : Called to and read back by: МАРИЯ MARKS at: 07/01/2024 01:58:44 by:[id number] PERFORMED BY: [facility] [address] [place] [id number] PATHOLOGIST SALES AND SERVICE ADVISOR VITOR ZARATE M.D. Performed By: #### H S TROP ####[facility] [place] [id number] [facility] Troponin I.cardiac [Mass/vol ume] in Serum or Plasma by Detection limit <= 0.01 ng/Ordered By: Shilpa Fenton on 07-01-2024 Troponin I.cardiac DL <= 0.01 ng/mL [Mass/Vol] Troponin I.cardiac [Mass/volume] in Serum or Plasma by Detection limit <= 0.01 ng/ Critically high 0.0-15.0 [facility] Comment on above: Critical Result : Ca lled to and read back by: МАРИЯ MARKS at: 07/01/2024 01:58:44 by:[id number] Alanine aminotransferase [En zymatic activity/volume] in Serum or PlasmaOrdered By: Vic Mendez on 06-30-2024 ALT [Catalytic activity/Vol] Alanine aminotransferase [Enzymatic activity/volume] in Serum or Plasma 7-52 [facility] Albumin [Mass/volume] in Ser um or Plasma by Bromocresol green (BCG) dye binding methoOrdered By: Vic Mendez on 06-30-2024 Albumin BCG dye [Mass/Vol] Albumin [Mass/volume] in Serum or Plasma by Bromocresol green (BCG) dye binding metho 3.5-5.7 [facility] Alkaline phosphatase [Enzyma tic activity/volume] in Serum or PlasmaOrdered By: Vic Mendez on 06-30-2024 ALP [Catalytic activity/Vol] Alkaline phosphatase [Enzymatic activity/volume] in Serum or Plasma 34-104 [facility] Aspartate aminotransferase [ Enzymatic activity/volume] in Serum or PlasmaOrdered By: Vic Mendez on 06-30-2024 AST [Catalytic activity/Vol] Aspartate aminotransferase [Enzymatic activity/volume] in Serum or Plasma 13-39 [facility] B-Type Natriuretic Peptideon 06-30-2024 Natriuretic peptide B (Bld) [Mass/Vol] 84.0 pg/mL Normal 5-100 [facility] Comment on above: Result Comment: PERF ORMED BY: [facility] [address] [place] [address] PATHOLOGIST SALES AND SERVICE ADVISOR VITOR ZARATE M.D. Performed By: #### C BC, PT, HS TROP, PTT, CK, CMP, BNP ####[facility] [address] Basophils Auto (Bld) [#/Vol] Ordered By: Vic Mendez on 06-30-2024 Basophils (Bld) [#/Vol] Automated basophil count 0.0-0.2 [facility] Basophils/100 WBC Auto (Bld) Ordered By: Vic Mendez on 06-30-2024 Basophils/100 WBC (Bld) Automated basophil % . [facility] Bilirubin.total [Mass/volume ] in Serum or PlasmaOrdered By: Vic Mendez on 06-30-2024 Bilirubin [Mass/Vol] Bilirubin.total [Mass/volume] in Serum or Plasma 0.3-1.0 [facility] CT head/brain wo conon 06-30 CT head/brain wo con [facility] [address] [place] [address] [place] [address] CT Scan Report Signed Patient: Austin Golden MR#: [id number] 8 : 1940 Acct:[id number] Age/Sex: 83 / F ADM Date: 06/30/24 Loc: ER Room: Type: [facility] ER Attending Dr: Copies to: Vic [...] Juanito Borja M.D.06/30/2024 3:47 PM Dictation Location: [place] [address] Transcribed By: [facility] 06/30/24 1547 Dictated By: Juanito Borja DO 06/30/24 1542 Signed By: 06/30/24 1547 Normal [facility] Calcium [Mass/volume] in Ser um or PlasmaOrdered By: Vic Mendez on 06-30-2024 Calcium [Mass/Vol] Calcium [Mass/volume ] in Serum or Plasma 8.6-10.3 [facility] Carbon dioxide, total [Moles /volume] in Serum or PlasmaOrdered By: Vic Mendez on 06-30-2024 CO2 [Moles/Vol] Carbon dioxide, tota l [Moles/volume] in Serum or Plasma 21.0-31.0 [facility] Chloride [Moles/volume] in S vaughn or PlasmaOrdered By: Vic Mendez on 06-30-2024 Chloride [Moles/Vol] Chloride [Moles/vol ume] in Serum or Plasma 98-107 [facility] Complete Blood Count Auto Di ffon 06-30-2024 Basophils (Bld) [#/Vol] 0.1 10*3/uL Normal 0.0-0.2 [facility] Comment on above: Result Comment: PERF ORMED BY: [place] [address] PATHOLOGIST SALES AND SERVICE ADVISOR VITOR ZARATE M.D. Performed By: #### C BC, PT, HS TROP, PTT, CK, CMP, BNP ####[address] Basophils/100 WBC (Bld) 0.8 % Normal . [facility] Comment on above: Performed By: #### C BC, PT, HS TROP, PTT, CK, CMP, BNP ####[address] Eosinophils (Bld) [#/Vol] 0.2 10*3/uL Normal 0.0-0.45 [facility] Comment on above: Performed By: #### C BC, PT, HS TROP, PTT, CK, CMP, BNP ####[address] Eosinophils/100 WBC (Bld) 1.5 % Normal . [facility] Comment on above: Performed By: #### C BC, PT, HS TROP, PTT, CK, CMP, BNP ####[address] Erythrocyte distribution width (RBC) [Ratio] 14.0 % Normal 11.9-15.3 [facility] Comment on above: Performed By: #### C BC, PT, HS TROP, PTT, CK, CMP, BNP ####[address] Hematocrit (Bld) [Volume fraction] 42.3 % Normal 34.0-46.4 [facility] Comment on above: Performed By: #### C BC, PT, HS TROP, PTT, CK, CMP, BNP ####[address] Hemoglobin (Bld) [Mass/Vol] 14.3 g/dL Normal 11.8-15.4 [facility] Comment on above: Performed By: #### C BC, PT, HS TROP, PTT, CK, CMP, BNP ####[address] Lymphocytes (Bld) [#/Vol] 1.4 10*3/uL Normal 1.00-4.8 [facility] Comment on above: Performed By: #### C BC, PT, HS TROP, PTT, CK, CMP, BNP ####[address] Lymphocytes/100 WBC (Bld) 14.0 % Normal . [facility] Comment on above: Performed By: #### C BC, PT, HS TROP, PTT, CK, CMP, BNP ####[address] MCH (RBC) [Entitic mass] 31.4 pg Normal 24.7-34.3 [facility] Comment on above: Performed By: #### C BC, PT, HS TROP, PTT, CK, CMP, BNP ####[address] MCV (RBC) [Entitic vol] 92.7 fL Normal 80-100 [facility] Comment on above: Performed By: #### C BC, PT, HS TROP, PTT, CK, CMP, BNP ####[address] Mean Corpuscular HGB Conc 33.9 g/dL Normal 32.0-35.0 [facility] Comment on above: Performed By: #### C BC, PT, HS TROP, PTT, CK, CMP, BNP ####[address] Monocytes (Bld) [#/Vol] 0.6 10*3/uL Normal 0.0-0.8 [facility] Comment on above: Performed By: #### C BC, PT, HS TROP, PTT, CK, CMP, BNP ####[address] Monocytes/100 WBC (Bld) 19.87 % Normal 0.00-20.00 [facility] Comment on above: Performed By: #### C BC, PT, HS TROP, PTT, CK, CMP, BNP ####[address] Monocytes/100 WBC (Bld) 5.9 % Normal . [facility] Comment on above: Performed By: #### C BC, PT, HS TROP, PTT, CK, CMP, BNP ####[address] Neutrophils (Bld) [#/Vol] 8.1 10*3/uL High 1.8-7.7 [facility] Comment on above: Performed By: #### C BC, PT, HS TROP, PTT, CK, CMP, BNP ####[address] Neutrophils/100 WBC (Bld) 77.8 % Normal . [facility] Comment on above: Performed By: #### C BC, PT, HS TROP, PTT, CK, CMP, BNP ####[address] NRBC% 0.1 /100{WBC} Normal 0-0.5 [facility] Comment on above: Performed By: #### C BC, PT, HS TROP, PTT, CK, CMP, BNP ####[address] Platelet mean volume (Bld) [Entitic vol] 8.5 fL Normal 6.3-10.7 [facility] Comment on above: Performed By: #### C BC, PT, HS TROP, PTT, CK, CMP, BNP ####[address] Platelets (Bld) [#/Vol] 259 10*3/uL Normal 150-450 [facility] Comment on above: Performed By: #### C BC, PT, HS TROP, PTT, CK, CMP, BNP ####[address] RBC (Bld) [#/Vol] 4.56 10*6/uL Normal 3.60-5.00 [facility] Comment on above: Performed By: #### C BC, PT, HS TROP, PTT, CK, CMP, BNP ####[address] WBC (Bld) [#/Vol] 10.4 10*3/uL Normal 3.8-11.6 [facility] Comment on above: Performed By: #### C BC, PT, HS TROP, PTT, CK, CMP, BNP ####[place] [id number] [facility] Comprehensive Metabolic Pane violeta 06-30-2024 Albumin [Mass/Vol] 4.3 g/dL Normal 3.5-5.7 [facility] Comment on above: Performed By: #### C BC, PT, HS TROP, PTT, CK, CMP, BNP ####[address] Albumin/Globulin [Mass ratio] 1.8 {ratio} Normal [facility] Comment on above: Performed By: #### C BC, PT, HS TROP, PTT, CK, CMP, BNP ####[address] ALP [Catalytic activity/Vol] 66 U/L Normal 34-104 [facility] Comment on above: Performed By: #### C BC, PT, HS TROP, PTT, CK, CMP, BNP ####[address] ALT [Catalytic activity/Vol] 31 U/L Normal 7-52 [facility] Comment on above: Performed By: #### C BC, PT, HS TROP, PTT, CK, CMP, BNP ####[place] [id number] [facility] Anion gap [Moles/Vol] 16.9 mmol/L High 6.0-15.0 [facility] Comment on above: Performed By: #### C BC, PT, HS TROP, PTT, CK, CMP, BNP ####[address] AST [Catalytic activity/Vol] 36 U/L Normal 13-39 [facility] Comment on above: Performed By: #### C BC, PT, HS TROP, PTT, CK, CMP, BNP ####[address] Bilirubin [Mass/Vol] 0.9 mg/dL Normal 0.3-1.0 [facility] Comment on above: Performed By: #### C BC, PT, HS TROP, PTT, CK, CMP, BNP ####[address] Calcium [Mass/Vol] 9.2 mg/dL Normal 8.6-10.3 [facility] Comment on above: Performed By: #### C BC, PT, HS TROP, PTT, CK, CMP, BNP ####[address] Chloride [Moles/Vol] 99 mmol/L Normal 98-107 [facility] Comment on above: Performed By: #### C BC, PT, HS TROP, PTT, CK, CMP, BNP ####[address] CO2 [Moles/Vol] 27.6 mmol/L Normal 21.0-31.0 [facility] Comment on above: Performed By: #### C BC, PT, HS TROP, PTT, CK, CMP, BNP ####[address] Creatinine [Mass/Vol] 1.28 mg/dL High 0.60-1.20 [facility] Comment on above: Performed By: #### C BC, PT, HS TROP, PTT, CK, CMP, BNP ####[address] Creatinine Clr Calc Pharmacy 28.68 Normal [facility] Comment on above: Result Comment: PERF ORMED BY: [facility] [address] [place] [address] PATHOLOGIST SALES AND SERVICE ADVISOR VITOR ZARATE M.D. Performed By: #### C BC, PT, HS TROP, PTT, CK, CMP, BNP ####[address] GFR/1.73 sq M.predicted MDRD (S/P/Bld) [Vol rate/Area] 42.087 mL/min/{1.73_m2} Normal [facility] Comment on above: Performed By: #### C BC, PT, HS TROP, PTT, CK, CMP, BNP ####[address] Globulin (S) [Mass/Vol] 2.4 g/dL Normal [facility] Comment on above: Performed By: #### C BC, PT, HS TROP, PTT, CK, CMP, BNP ####[address] Glucose [Mass/Vol] 116 mg/dL High 70-100 [facility] Comment on above: Result Comment: [place] Glucose Reference Range is dependent on time and content of last meal. Glucose of more than 200 mg/dL in a nonstressed, ambulatory subject supports the diagnosis of Diabetes Mellitus. ADA recommended reference range Performed By: #### C BC, PT, HS TROP, PTT, CK, CMP, BNP ####[address] Potassium [Moles/Vol] 3.5 mmol/L Normal 3.5-5.1 [facility] Comment on above: Performed By: #### C BC, PT, HS TROP, PTT, CK, CMP, BNP ####[address] Protein [Mass/Vol] 6.7 g/dL Normal 6.4-8.9 [facility] Comment on above: Performed By: #### C BC, PT, HS TROP, PTT, CK, CMP, BNP ####[address] Sodium [Moles/Vol] 140 mmol/L Normal 136-145 [facility] Comment on above: Performed By: #### C BC, PT, HS TROP, PTT, CK, CMP, BNP ####[address] [place] [address] [facility] Urea nitrogen [Mass/Vol] 25 mg/dL Normal 7-25 [facility] Comment on above: Performed By: #### C BC, PT, HS TROP, PTT, CK, CMP, BNP ####[address] [address] [facility] Creatine Kinaseon 06-30-2024 CK [Catalytic activity/Vol] 43 U/L Normal 30-223 [facility] Comment on above: Performed By: #### C BC, PT, HS TROP, PTT, CK, CMP, BNP ####[address] [address] [facility] Creatine kinase [Enzymatic a ctivity/volume] in Serum or PlasmaOrdered By: Vic Mendez on 06-30-2024 CK [Catalytic activity/Vol] Creatine kinase [Enzymatic activity/volume] in Serum or Plasma 30-223 [facility] Creatinine [Mass/volume] in Serum or PlasmaOrdered By: Vic Mendez on 06-30-2024 Creatinine [Mass/Vol] Creatinine [Mass/v olume] in Serum or Plasma High 0.60-1.20 [facility] Digoxinon 06-30-2024 Digoxin [Mass/Vol] 1.7 ng/mL Normal 0.9-2.0 [facility] Comment on above: Result Comment: Last dose: - PERFORMED BY: [place] [address] PATHOLOGIST SALES AND SERVICE ADVISOR VITOR ZARATE M.D. Performed By: #### D IG ####[place] [id number] [facility] Digoxin [Mass/volume] in Ser um or PlasmaOrdered By: Vic Mendez on 06-30-2024 Digoxin [Mass/Vol] Digoxin [Mass/volume ] in Serum or Plasma 0.9-2.0 [facility] Comment on above: Last dose: - ECG 12 lead ECGon 06-30-2024 ECG 12 lead ECG [facility] [address] Electrocardiograph Report Signed Patient: Austin Golden MR#: [id number] 8 : 1940 Acct:[id number] Age/Sex: 83 / F ADM Date: 06/30/24 Loc: 3T Room: [address] [place] [address] Type: ADM IN Attending Dr: Shilpa Fenton [...] ST abnormality Confirmed by Nesha Leger MD ([id number]) on 06/30/2024 9:32:03 PM Referred By: Electronically Signed By: Nesha Leger MD Transcribed By: MUS Signed By Nesha Leger MD 06/20 Normal [facility] ECG 12 lead ECG [facility] [address] Electrocardiograph Report Signed Patient: Austin Golden MR#: [id number] 8 : 1940 Acct:[id number] Age/Sex: 83 / F ADM Date: 06/30/24 Loc: Room: [address] [place] [address] Type: ADM IN Attending Dr: Shilpa Fenton [...] depression laterally Confirmed by Nesha Leger MD ([id number]) on 06/30/2024 9:31:27 PM Referred By: Electronically Signed By: Nesha Leger MD Transcribed By: MUS Signed By Nesha Leger MD 06/20 Normal [facility] Eosinophils Auto (Bld) [#/Vo l]Ordered By: Vic Mendez on 06-30-2024 Eosinophils (Bld) [#/Vol] Automated eosinophil count 0.0-0.45 [facility] Eosinophils/100 WBC Auto (Bl d)Ordered By: Vic Mendez on 06-30-2024 Eosinophils/100 WBC (Bld) Automated eosinophil % . [facility] [facility] Erythrocyte distribution wid th Auto (RBC) [Ratio]Ordered By: Vic Mendez on 06-30-2024 Erythrocyte distribution width (RBC) [Ratio] Erythrocyte distribution width [Ratio] by Automated count 11.9-15.3 [facility] Globulin Calc (S) [Mass/Vol] Ordered By: Vic Mendez on 06-30-2024 Globulin (S) [Mass/Vol] Serum globulin measurement by calculation (mass/volume) [facility] Glucose [Mass/volume] in Ser um or PlasmaOrdered By: Vic Mendez on 06-30-2024 Glucose [Mass/Vol] Glucose [Mass/volume ] in Serum or Plasma High 70-100 [facility] Comment on above: ADA recommended refe rence rangeRandom Glucose Reference Range is dependent on time and content of last meal. Glucose of more than 200 mg/dL in a nonstressed, ambulatory subject supports the diagnosis of Diabetes Mellitus. Hematocrit Auto (Bld) [Volum e fraction]Ordered By: Vic Mendez on 06-30-2024 Hematocrit (Bld) [Volume fraction] Hematocrit [Volume Fraction] of Blood by Automated count 34.0-46.4 [facility] Hemoglobin [Mass/volume] in BloodOrdered By: Vic Mendez 06-30-2024 Hemoglobin (Bld) [Mass/Vol] Hemoglobin [Mass/volume] in Blood 11.8-15.4 [facility] INR in Platelet poor plasma by Coagulation assayOrdered By: Vic Mendez on 06-30-2024 INR Coag (PPP) [Relative time] INR in Platelet poor plasma by Coagulation assay [facility] Comment on above: INR Therapeutic [...] erythrocytes in Blood by Automated coun 3.8-11.6 [facility] Lymphocytes Auto (Bld) [#/Vo l]Ordered By: Vic Mendez on 06-30-2024 Lymphocytes (Bld) [#/Vol] Lymphocytes [#/volume] in Blood by Automated count 1.00-4.8 [facility] Lymphocytes/100 WBC Auto (Bl d)Ordered By: Vic Mendez on 06-30-2024 Lymphocytes/100 WBC (Bld) Lymphocytes/100 leukocytes in Blood by Automated count . [facility] MCH Auto (RBC) [Entitic mass ]Ordered By: Vic Mendez on 06-30-2024 MCH (RBC) [Entitic mass] MCH [Entitic mass] by Automated count 24.7-34.3 [facility] MCHC Auto (RBC) [Mass/Vol]Or dered By: Vic Mendez on 06-30-2024 MCHC (RBC) [Mass/Vol] MCHC [Mass/volume] by Automated count 32.0-35.0 [facility] MCV Auto (RBC) [Entitic vol] Ordered By: Vic Mendez on 06-30-2024 MCV (RBC) [Entitic vol] MCV [Entitic volume] by Automated count 80-100 [facility] Monocyte distribution width [Entitic volume] in Blood by AutomatedOrdered By: Vic Mendez on 06-30-2024 Monocyte distribution width Auto (Bld) [Entitic vol] Monocyte distribution width [Entitic volume] in Blood by Automated 0.00-20.00 [facility] Monocytes Auto (Bld) [#/Vol] Ordered By: Vic Mendez on 06-30-2024 Monocytes (Bld) [#/Vol] Automated blood monocyte count 0.0-0.8 [facility] Monocytes/100 WBC Auto (Bld) Ordered By: Vic Mendez on 06-30-2024 Monocytes/100 WBC (Bld) Automated monocyte % . [facility] Natriuretic peptide B [Mass/ Vol]Ordered By: Vic Mendez on 06-30-2024 Natriuretic peptide B (Bld) [Mass/Vol] BNP ser/plas 5-100 [facility] Neutrophils Auto (Bld) [#/Vo l]Ordered By: Vic Mendez on 06-30-2024 Neutrophils (Bld) [#/Vol] Neutrophils [#/volume] in Blood by Automated count High 1.8-7.7 [facility] Neutrophils/100 WBC Auto (Bl d)Ordered By: Vic Mendez on 06-30-2024 Neutrophils/100 WBC (Bld) Automated neutrophil % . [facility] No Panel InformationOrdered By: Vic Mendez on 06-30-2024 Estimated GFR (CKD-EPI) 42.087 mL/Min [facility] Creatinine Clearance (Chem 28.68 [facility] Nucleated erythrocytes [Pres ence] in Blood by Automated countOrdered By: Vic Mendez on 06-30-2024 Nucleated RBC Auto Ql (Bld) Nucleated erythrocytes [Presence] in Blood by Automated count 0-0.5 [facility] Partial Thromboplastin Timeo n 06-30-2024 aPTT Coag (Bld) [Time] 30.9 s Normal 25.1-36.5 [facility] Comment on above: Result Comment: A he matocrit value greater than 55% may lead to inaccurate results in coagulation testing. Patients having hematocrit values >55% require a special collection tube for coagulation studies. Please contact the laboratory at [phone] for redraw instructions. PERFORMED BY: [facility] [address] [place] [address] PATHOLOGIST SALES AND SERVICE ADVISOR VITOR ZARATE M.D. Performed By: #### C BC, PT, HS TROP, PTT, CK, CMP, BNP ####[facility] [address] [place] [address] [facility] Platelet mean volume Auto (B ld) [Entitic vol]Ordered By: Vic Mendez on 06-30-2024 Platelet mean volume (Bld) [Entitic vol] Platelet mean volume [Entitic volume] in Blood by Automated count 6.3-10.7 [facility] Platelets Auto (Bld) [#/Vol] Ordered By: Vic Mendez on 06-30-2024 Platelets (Bld) [#/Vol] Platelets [#/volume] in Blood by Automated count 150-450 [facility] Potassium [Moles/volume] in Serum or PlasmaOrdered By: Vic Mendez on 06-30-2024 Potassium [Moles/Vol] Potassium [Moles/v olume] in Serum or Plasma 3.5-5.1 [facility] Protein [Mass/volume] in Ser um or PlasmaOrdered By: Vic Mendez on 06-30-2024 Protein [Mass/Vol] Protein [Mass/volume ] in Serum or Plasma 6.4-8.9 [facility] Prothrombin Time INRon 06-30 INR Coag (PPP) [Relative time] 1.5 {INR} Normal [facility] Comment on above: Result [...] PT, HS TROP, PTT, CK, CMP, BNP ####[place] [id number] [address] PT Coag (PPP) [Time] 16.9 s High 9.0-12.9 [facility] Comment on above: Result Comment: A he matocrit value greater than 55% may lead to inaccurate results in coagulation testing. Patients having hematocrit values >55% require a special collection tube for coagulation studies. Please contact the laboratory at [phone] for redraw instructions. Performed By: #### C BC, PT, HS TROP, PTT, CK, CMP, BNP ####[facility] [place] [id number] [place] Prothrombin time (PT)Ordered By: Vic Mendez on 06-30-2024 PT Coag (PPP) [Time] Prothrombin time (PT) High 9.0- 12.9 [facility] Comment on above: A hematocrit value g reater than 55% may lead to inaccurate results in coagulation testing. Patients having hematocrit values >55% require a special collection tube for coagulation studies. Please contact the laboratory at [phone] for redraw instructions. RBC Auto (Bld) [#/Vol]Ordere d By: Vic Mendez on 06-30-2024 RBC (Bld) [#/Vol] Erythrocytes [#/volu me] in Blood by Automated count 3.60-5.00 [facility] Serum or plasma albumin/glob ulin mass ratioOrdered By: Vic Mendez on 06-30-2024 Albumin/Globulin [Mass ratio] Serum or plasma albumin/globulin mass ratio [facility] Serum or plasma anion gap de terminationOrdered By: Vic Mendez on 06-30-2024 Anion gap [Moles/Vol] Serum or plasma an ion gap determination High 6.0-15.0 [facility] Sodium [Moles/volume] in Ser um or PlasmaOrdered By: Vic Mendez on 06-30-2024 Sodium [Moles/Vol] Sodium [Moles/volume ] in Serum or Plasma 136-145 [facility] Troponin I High Sensitivityo n 06-30-2024 Troponin I High Sensitivity 85.6 pg/mL Off scale high 0.0-15.0 [facility] Comment on above: Result Comment: Crit ical Result : Called to and read back by: ZENA [id number] at: 06/30/2024 21:50:47 by:[id number] PERFORMED BY: [facility] [address] [place] [address] PATHOLOGIST SALES AND SERVICE ADVISOR VITOR ZARATE M.D. Performed By: #### H S TROP ####[facility] [address] [place] [address] [facility] Troponin I High Sensitivity 101.6 pg/mL Off scale high 0.0-15.0 [facility] Comment on above: Result Comment: Crit ical Result : Called to and read back by: TOMMIE FLOYD/ER at: 06/30/2024 16:12:30 by:[id number] PERFORMED BY: [place] [address] PATHOLOGIST SALES AND SERVICE ADVISOR VITOR ZARATE M.D. Performed By: #### C BC, PT, HS TROP, PTT, CK, CMP, BNP ####[facility] [address] Troponin I.cardiac [Mass/vol ume] in Serum or Plasma by Detection limit <= 0.01 ng/Ordered By: Vic Mendez on 06-30-2024 Troponin I.cardiac DL <= 0.01 ng/mL [Mass/Vol] Troponin I.cardiac [Mass/volume] in Serum or Plasma by Detection limit <= 0.01 ng/ Critically high 0.0-15.0 [facility] Comment on above: Critical Result : Ca lled to and read back by: TOMMIE FLOYD/ER at: 06/30/2024 16:12:30 by:[id number] Urea nitrogen [Mass/volume] in Serum or PlasmaOrdered By: Vic Mendez on 06-30-2024 Urea nitrogen [Mass/Vol] Urea nitrogen [Mass/volume] in Serum or Plasma 7- [facility] WBC Auto (Bld) [#/Vol]Ordere d By: Vic Mendez on 06-30-2024 WBC (Bld) [#/Vol] Leukocytes [#/volume ] in Blood by Automated count 3.8-11.6 [facility] X-ray reportOrdered By: Jadiel Borja on 06-30-2024 Study report [facility] [place] [address] XRay Report Signed Patient: Austin oGlden MR#: [id number] : 1940 Acct:[id number] Age/Sex: 83 / F ADM Date: 4 Loc: ER Room: Type: [facility] ER Attending Dr: Copies to: Vic [...] Juanito Borja M.D.06/30/2024 3:39 PM Dictation Location: RADIO-PC-01 Transcribed By: JODI 06/30/24 1539 Dictated By: Juanito Borja DO 06/30/24 1537 Signed By: 06/30/24 1539 [facility] XR chest 2V*on 06-30-2024 XR chest 2V* [facility] Main [place] [address] [place] [address] XRay Report Signed Patient: Austin Golden MR#: [id number] : 1940 Acct:[id number] Age/Sex: 83 / F ADM Date: 06/30/24 Loc: ER Room: Type: [facility] ER Attending Dr: Copies to: Vic [...] Juanito Borja M.D.06/30/2024 3:39 PM Dictation Location: RADIO-PC-01 Transcribed By: JODI 06/30/24 1539 Dictated By: Juanito Borja DO 06/30/24 1537 Signed By: 06/30/24 1539 Normal [facility] aPTT in Platelet poor plasma by Coagulation assayOrdered By: Vic Mendez on 06-30-2024 aPTT Coag (PPP) [Time] Activated partial thromboplastin time (aPTT) in platelet poor plasma by coagulation a 25.1-36.5 [facility] Comment on above: A hematocrit value g reater than 55% may lead to inaccurate results in coagulation testing. Patients having hematocrit values >55% require a special collection tube for coagulation studies. Please contact the laboratory at [phone] for redraw instructions. [place] BARIUM SWALLOW DOUBLE [...] OralBarium Sulfate 1 Tab Route: Oral FINDINGS: Clinic Licensed Practical Nurse fluoroscopic spot images of the abdomen: Non-obstructive [...] agree with the resident's interpretation. Normal [facility] RF videography Hypopharynx a nd Esophagus [...] OralBarium Sulfate 1 Tab Route: Oral FINDINGS: Clinic Licensed Practical Nurse fluoroscopic spot images of the abdomen: Non-obstructive [...] OralBarium Sulfate 1 Tab Route: Oral FINDINGS: Clinic Licensed Practical Nurse fluoroscopic spot images of the abdomen: Non-obstructive [...] images and agree with the resident's interpretation. [facility] Study observation (narrative) [facility] RF videography Hypopharynx a nd Esophagus Views W liquid and paste contrast PO during swallowingOrdered By: Ivonne Brooks on 06-26-2024 [facility] Work Phone: Telephone Encounteron 2023 Finance Intern Authentication Interface Message Text Dr العلي office calling waiting for order to be placed for timed barium esophagogram Jazmin ال[facility]لي [address] [facility] [address] option #[address] العلي's nurse line Leela Encounter dated 05/29/[address] Yung Recommendations: Obtain timed barium esophagram or endoflip to confirm diagnosis. Dr Yung recommended pt has this procedure Telephone Information: Normal [facility] Telephone Encounteron 2023 Finance Intern Authentication Interface Message Text Will forward to Dr. Katie Yung. Normal [facility] Telephone Encounteron 2023 Finance Intern Authentication Interface Message Text Sanjuana from [facility] called and wanted to discuss nausea and weakness and unable to eat would like call to discuss Sanjuana [phone] Opt 1 then opt 3 Normal [facility] Anesthesia Postprocedure Taylor luationon 05-30-2024 Finance Intern Authentication Interface Message Text Anesthesia Postoperative Assessment: [...] EVENTS: No notable events documented. Normal [facility] Anesthesia Preprocedure Eval uationon 05-29-2024 Finance Intern Authentication Interface Message Text ASA: 2 No [...] were discussed with the patient and/or legal traffic representative. The risks, benefits and alternatives were reviewed. Questions regarding anesthesia were answered. Patient and/or legal traffic representative knows such anesthetics and procedures may be performed by Resident physicians, Certified Anesthesiologist Assistants, or Certified Nurse Anesthetists under the supervision of a physician. The patient /or the patient's legal traffic representative agree with the plan for anesthesia. MHPATFORM Normal The [facility] Anesthesia Transfer Of Careo n 05-29-2024 Finance Intern Authentication Interface Message Text Patient taken to [...] Katie Yung MD Anesthesiologist: Syed Schmidt MD MASTER CHEF: Maggie Angela APRN-ANDREA ESOPHAGOGASTRODUODENOSCOPY with HREM catheter [...] was received. Maggie Angela APRN-ANDREA Normal [facility] OP Noteon 05-29-2024 Finance Intern Authentication Interface Message Text Patient's Name: Austin Golden Date: 05/29/24 Written informed consent obtained from patient. Endoscopic procedure risks (including but not limited to perforation, infection, bloating and bleeding) benefits and alternatives explained and questions answered. Patient verbalized understanding. Based on history and airway assessment patient is not an appropriate candidate for moderate sedation and will undergo sedation with the assistance of anesthesia physician/MASTER CHEF team. Please see corresponding note for full details. Katie Yung MD 05/29/24 1:08 PM Austin Golden 83 year old Surgical Contact Serial Number: [id number] Location: ENDO 02 Date: 05/29/2024 YARD SUPERVISOR: Katie Yung MD ATTENDING:Katie Yung MD Procedure(s): [...] 50cm. Taped to right cheek. Esophageal dysphagia [[id number]] TEE PATH SPECIMEN SENT: no SPECIMEN: None [...] PCP. 3. F/u with Amna Powell at [facility] CC: Primary Care Provider: No primary care provider on file. PERSON COMPLETING NOTE: Katie Yung MD 05/29/2024 at 1:08 PM Patient meets criteria for discharge/transfer: Katie Yung MD Normal [facility] 05-29-2024 Finance Intern Authentication Interface Message Text High Resolution Esophageal Manometry (HREM) Name: Austin Golden : 1940 Indication: Esophageal dysphagia [[id number]] Attending: Katie Yung MD no referring provider Operating Accounting Machine Mechanic: Jennifer Proctor LPN [employer] Residual [...] Katie Yung MD Invalid Interpretation Code [facility] Estimated glomerular filtrat ion rate (GFR) non- Americanon 05-28-2024 GFR/1.73 sq M.predicted among non-blacks MDRD (S/P/Bld) [Vol rate/Area] 30 mL/min/{1.73_m2} Low >=60 mL/min/1.[address] [place] [address] GFR/1.73 sq M.predicted among non-blacks MDRD (S/P/Bld) [Vol rate/Area] Estimated glomerular filtration rate (GFR) non- Low >=60 mL/min/1.7 2 [facility] Laboratory - Chemistry and C hemistry - challengeon 05-28-2024 Calcium [Mass/Vol] 9.2 mg/dL 8.5-10.1 [facility] Chloride [Moles/Vol] 97 mmol/L Low 98-[address] [facility] CO2 [Moles/Vol] 27.8 mmol/L 21.0-32.0 [facility] Creatinine [Mass/Vol] 1.64 mg/dL High 0.55-1.02 [facility] GFR/1.73 sq M.predicted MDRD (S/P/Bld) [Vol rate/Area] 36 mL/min/{1.73_m2} Low >=60 mL/min/1.7 3m 2 [facility] Glucose [Mass/Vol] 178 mg/dL High 74-106 [facility] Natriuretic peptide B (Bld) [Mass/Vol] 1199.0 pg/mL <=1800.0 [facility] Potassium [Moles/Vol] 3.2 mmol/L Low 3.5-5.1 [facility] Sodium [Moles/Vol] 137 mmol/L 136-145 [facility] Urea nitrogen [Mass/Vol] 22.0 mg/dL High 7.0-18.0 [facility] Urea nitrogen/Creatinine [Mass ratio] 13.4 mg/mg [facility] No Panel Informationon 05-28 Digoxin Level 2.1 ng/mL High 0.9-2.0 [facility] Serum or plasma anion gap de terminationon 05-28-2024 Anion gap [Moles/Vol] 15.4 mmol/L [facility] Anion gap [Moles/Vol] Serum or plasma an ion gap determination [facility] Digoxin [Mass/volume] in Ser um or PlasmaOrdered By: Maxwell Medrano on 04-24-2024 Digoxin [Mass/Vol] 1.8 ng/mL 0.9-2.0 [facility] Comment on above: Last dose: - Digoxin [Mass/Vol] Digoxin [Mass/volume ] in Serum or Plasma 0.9-2.0 [facility] Comment on above: Last dose: - ECG 12 Leadon 04-24-2024 Rhythm appears to be atrial fibrillation with slightly elevated heart [facility] Work Phone: Thyrotropin [Units/volume] i n Serum or PlasmaOrdered By: Maxwell Medrano on 04-24-2024 TSH Qn 1.25 m[IU]/L 0.45-5.33 [facility] TSH Qn Thyrotropin [Units/v olume] in Serum or Plasma 0.45-5.33 [facility] ECG 12 lead (Clinic Performe d)on 04-17-2024 EKG performed today shows atrial flutter atypical at a rate of 83 bpm QRS duration 70 ms QT corrected 450 ms. Rhythm strip shows the same pattern. [facility] Work Phone: [facility] Work Phone: Laboratory - Chemistry and C hemistry - challengeon 04-08-2024 Bilirubin Ql (U) Negative [facility] Glucose (U) [Mass/Vol] Negative [facility] Ketones Ql (U) Negative [facility] pH (U) 5.0 [pH] [facility] Specific gravity (U) [Rel density] 1.015 [facility] Urobilinogen (U) [Mass/Vol] 0.2 mg/dL [facility] Laboratory - Specimen inform ationon 04-08-2024 Appearance (U) clear [facility] Color (U) yellow [facility] Laboratory - Urinalysison Leukocyte esterase Test strip Ql (U) Negative [facility] Nitrite Ql (U) Negative [facility] Protein Ql (U) ++ [facility] No Panel Informationon 04-08 Urine Occult Blood Negative [facility] ECG 12-LEADon 03-27-2024 ECG 12-LEAD Ventricular Rate 83 Atrial Rate 83 P-R Interval 200 QRS Duration 78 Q-T Interval 386 QTC Calculation(Bazett) 453 P Assaria 132 R Assaria 1 T Assaria 185 QRS Count 13 Q Onset 224 [...] Asencio ([id number]) on 03/29/2024 12:51:06 PM Normal [facility] ECG 12-LEAD Ventricular Rate 84 Atrial Rate 267 QRS Duration 84 Q-T Interval 312 QTC Calculation(Bazett) 368 R Assaria 6 T Assaria 192 QRS Count 14 Q Onset 221 P Onset 124 P Offset 162 T Offset 377 QTC Fredericia 348 Diagnosis atypical atrial flutter Cannot rule out Anterior infarct , age undetermined ST & T wave abnormality, consider inferolateral ischemia Abnormal ECG Confirmed by Maxwell Medrano ([id number]) on 03/27/2024 9:02:15 AM Normal [facility] ECG 12-LEADon 03-26-2024 ECG 12-LEAD Ventricular Rate 83 Atrial Rate 83 P-R Interval 212 QRS Duration 82 Q-T Interval 370 QTC Calculation(Bazett) 434 P Assaria 74 R Assaria 1 T Assaria 196 QRS Count 13 Q Onset 223 P Onset 117 P Offset 156 T Offset 408 QTC Fredericia 412 Diagnosis atypical atrial flutter ST & T wave abnormality, consider inferior ischemia ST & T wave abnormality, consider anterolateral ischemia Abnormal ECG Reconfirmed by Maxwell Medrano ([id number]) on 03/26/2024 5:02:48 PM Normal [facility] ECG 12-LEAD Ventricular Rate 82 Atrial Rate 82 P-R Interval 204 QRS Duration 78 Q-T Interval 356 QTC Calculation(Bazett) 415 P Assaria 95 R Assaria 9 T Assaria 194 QRS Count 14 Q Onset 221 P Onset 119 P Offset 154 T Offset 399 QTC Fredericia 395 Diagnosis atypical atrial flutter ST & T wave abnormality, consider inferior ischemia ST & T wave abnormality, consider anterolateral ischemia Abnormal ECG Reconfirmed by Maxwell Medrano ([id number]) on 03/26/2024 5:02:17 PM Normal [facility] ECG 12-LEAD Ventricular Rate 82 Atrial Rate 82 P-R Interval 198 QRS Duration 84 Q-T Interval 388 QTC Calculation(Bazett) 453 P Assaria 97 R Assaria 5 T Assaria 199 QRS Count 13 Q Onset 220 P Onset 121 P Offset 159 T Offset 414 QTC Fredericia 430 Diagnosis atypical atrial flutter ST & T wave abnormality, consider inferolateral ischemia Abnormal ECG Reconfirmed by Maxwell Medrano ([id number]) on 03/26/2024 5:01:47 PM Normal [facility] ECG 12-LEADon 03-25-2024 ECG 12-LEAD Ventricular Rate 70 Atrial Rate 70 P-R Interval 204 QRS Duration 76 Q-T Interval 384 QTC Calculation(Bazett) 414 R Assaria -4 T Assaria 191 QRS Count 12 Q Onset 226 T Offset 418 QTC Fredericia 404 Diagnosis Atrial-paced rhythm Inferior infarct , age undetermined Cannot rule out Anterior infarct , age undetermined ST & T wave abnormality, consider lateral ischemia Abnormal ECG When compared with ECG of 25-MAR-2024 08:52, No significant change was found Confirmed by Maxwell Medrano ([id number]) on 03/26/2024 5:00:38 PM Normal [facility] ECG 12-LEAD Ventricular Rate 70 Atrial Rate 69 P-R Interval 200 QRS Duration 76 Q-T Interval 400 QTC Calculation(Bazett) 432 R Assaria 1 T Assaria 189 QRS Count 11 Q Onset 220 T Offset 420 QTC Fredericia 421 Diagnosis Atrial-paced rhythm ST & T wave abnormality, consider inferior ischemia ST & T wave abnormality, consider anterolateral ischemia Abnormal ECG Confirmed by Maxwell Medrano ([id number]) on 03/25/2024 10:00:04 AM Normal [facility] ECG 12-LEAD Ventricular Rate 84 Atrial Rate 84 P-R Interval 206 QRS Duration 82 Q-T Interval 348 QTC Calculation(Bazett) 411 P Assaria 90 R Assaria -11 T Assaria 181 QRS Count 13 Q Onset 225 P Onset 122 P Offset 165 T Offset 399 QTC Fredericia 389 Diagnosis Atypical atrial flutter Inferior infarct , age undetermined ST & T wave abnormality, consider anterolateral ischemia Abnormal ECG Confirmed by Maxwell Medrano ([id number]) on 03/25/2024 9:59:54 AM Normal [facility] ECG 12-LEAD Ventricular Rate 93 Atrial Rate 93 P-R Interval 90 QRS Duration 80 Q-T Interval 368 QTC Calculation(Bazett) 457 R Assaria 13 T Assaria 213 QRS Count 15 Q Onset 221 P Onset 176 P Offset 198 T Offset 405 QTC Fredericia 426 Diagnosis atypical atrial flutter ST & T wave abnormality, consider inferior ischemia ST & T wave abnormality, consider anterolateral ischemia Abnormal ECG Confirmed by Maxwell Medrano ([id number]) on 03/25/2024 9:59:32 AM Normal [facility] ECG 12-LEADon 03-24-2024 ECG 12-LEAD Ventricular Rate 87 Atrial Rate 267 QRS Duration 74 Q-T Interval 324 QTC Calculation(Bazett) 389 R Assaria -7 T Assaria 194 QRS Count 15 Q Onset 221 T Offset 383 QTC Fredericia 366 Diagnosis Atrial fibrillation with occasional ventricular-paced complexes Inferior infarct , age undetermined ST & T wave abnormality, consider lateral ischemia Abnormal ECG When compared with ECG of 23-MAR-2024 12:21, (unconfirmed) Vent. rate has increased BY 10 BPM Confirmed by Katie Asencio ([id number]) on 03/24/2024 5:29:54 PM Normal [facility] ECG 12-LEADon 03-23-2024 ECG 12-LEAD Ventricular Rate 77 Atrial Rate 394 QRS Duration 76 Q-T Interval 324 QTC Calculation(Bazett) 366 R Assaria -2 T Assaria 190 QRS Count 12 Q Onset 221 [...] James ([id number]) on 03/24/2024 10:23:54 AM Normal [facility] ECG 12-LEAD Ventricular Rate 83 Atrial Rate 394 QRS Duration 74 Q-T Interval 330 QTC Calculation(Bazett) 387 R Assaria -7 T Assaria 181 QRS Count 14 Q Onset 221 T Offset 386 QTC Fredericia 367 Diagnosis Atrial fibrillation with frequent ventricular-paced complexes Inferior infarct , age undetermined ST & T wave abnormality, consider anterolateral ischemia Abnormal ECG When compared with ECG of 22-MAR-2024 11:37, (unconfirmed) Electronic ventricular 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 Sinus rhythm Confirmed by Katie James ([id number]) on 03/24/2024 10:23:04 AM Normal [facility] ECG 12-LEADon 03-22-2024 ECG 12-LEAD Ventricular Rate 89 Atrial Rate 89 P-R Interval 194 QRS Duration 84 Q-T Interval 328 QTC Calculation(Bazett) 399 P Assaria 99 R Assaria -2 T Assaria 187 QRS Count 15 Q Onset 222 P Onset 125 P Offset 163 T Offset 386 QTC Fredericia 373 Diagnosis Normal sinus rhythm ST & T wave abnormality, consider inferolateral ischemia Abnormal ECG No previous ECGs available Confirmed by Katie James ([id number]) on 03/24/2024 10:22:29 AM Normal [facility] Basophils Auto (Bld) [#/Vol] on 03-21-2024 Basophils (Bld) [#/Vol] 0.0 10 3/uL 0.0-0.1 [facility] Basophils/100 WBC Auto (Bld) on 03-21-2024 Basophils/100 WBC (Bld) 0.3 % 0.2-2.0 [facility] Eosinophils/100 WBC Auto (Bl d)on 03-21-2024 Eosinophils/100 WBC (Bld) 0.7 % Low 0.9-7.0 [facility] Erythrocyte distribution wid th Auto (RBC) [Ratio]on 03-21-2024 Erythrocyte distribution width (RBC) [Ratio] 15.0 % 11.0-15.0 [facility] Estimated glomerular filtrat ion rate (GFR) non- Americanon 03-21-2024 GFR/1.73 sq M.predicted among non-blacks MDRD (S/P/Bld) [Vol rate/Area] 45 mL/min/{1.73_m2} Low >=60 [facility] Hematocrit Auto (Bld) [Volum e fraction]on 03-21-2024 Hematocrit (Bld) [Volume fraction] 37.3 % 36.0-48.0 [facility] Hemoglobin [Mass/volume] in Bloodon 03-21-2024 Hemoglobin (Bld) [Mass/Vol] 12.6 g/dL 12.0-16.0 [facility] Laboratory - Chemistry and C hemistry - challengeon 03-21-2024 Calcium [Mass/Vol] 9.0 mg/dL 8.5-10.1 [facility] Chloride [Moles/Vol] 105 mmol/L 98-[address] [facility] CO2 [Moles/Vol] 25.7 mmol/L 21.0-32.0 [facility] Creatinine [Mass/Vol] 1.16 mg/dL High 0.55-1.02 [facility] GFR/1.73 sq M.predicted MDRD (S/P/Bld) [Vol rate/Area] 54 mL/min/{1.73_m2} Low >=60 [facility] Glucose [Mass/Vol] 127 mg/dL High 74-106 [facility] Potassium [Moles/Vol] 3.9 mmol/L 3.5-5.1 [facility] Sodium [Moles/Vol] 139 mmol/L 136-145 [facility] Urea nitrogen [Mass/Vol] 26.0 mg/dL High 7.0-18.0 [facility] Urea nitrogen/Creatinine [Mass ratio] 22.4 mg/mg [facility] Laboratory - Hematology and Cell countson 03-21-2024 Immature granulocytes/100 WBC (Bld) 0.6 % High 0.0-0.5 [facility] Leukocytes [#/volume] correc anne marie for nucleated erythrocytes in Blood by Automated counon 03-21-2024 WBC corrected for nucl RBC Auto (Bld) [#/Vol] 6.8 10 3/uL 4.0-11.0 [facility] Lymphocytes Auto (Bld) [#/Vo l]on 03-21-2024 Lymphocytes (Bld) [#/Vol] 1.8 10 3/uL 1.2-3.8 [facility] Lymphocytes/100 WBC Auto (Bl d)on 03-21-2024 Lymphocytes/100 WBC (Bld) 26.9 % 20.5-60.0 [facility] MCH Auto (RBC) [Entitic mass ]on 03-21-2024 MCH (RBC) [Entitic mass] 33.2 pg 26.7-34.0 [facility] MCHC Auto (RBC) [Mass/Vol]on 03-21-2024 MCHC (RBC) [Mass/Vol] 33.8 g/dL 29.9-35.2 [facility] MCV Auto (RBC) [Entitic vol] on 03-21-2024 MCV (RBC) [Entitic vol] 98.2 fL 81.0-99.0 [facility] Monocytes Auto (Bld) [#/Vol] on 03-21-2024 Monocytes (Bld) [#/Vol] 0.5 10 3/uL 0.3-0.8 [facility] Monocytes/100 WBC Auto (Bld) on 03-21-2024 Monocytes/100 WBC (Bld) 6.9 % 1.7-12.0 [facility] Neutrophils Auto (Bld) [#/Vo l]on 03-21-2024 Neutrophils (Bld) [#/Vol] 4.4 10 3/uL 1.4-6.5 [facility] Neutrophils/100 WBC Auto (Bl d)on 03-21-2024 Neutrophils/100 WBC (Bld) 64.6 % 43.0-75.0 [facility] No Panel Informationon 03-21 Troponin I High Sensitivity 96.6 pg/mL High 4.0-51.3 [facility] Comment on above: RESULTS CALLED TO [...] Eosinophils # (Auto) 0.1 10 3/uL 0.0-0.7 [facility] Immature Granulocyte # (Auto) 0.04 10 3/uL High 0.00-0.03 [facility] Platelet mean volume Auto (B ld) [Entitic vol]on 03-21-2024 Platelet mean volume (Bld) [Entitic vol] 10.0 fL 9.5-13.5 [facility] Platelets Auto (Bld) [#/Vol] on 03-21-2024 Platelets (Bld) [#/Vol] 222 10 3/uL 150-450 [facility] RBC Auto (Bld) [#/Vol]on RBC (Bld) [#/Vol] 3.80 10 6/uL Low 4.20-5.40 [facility] Serum or plasma anion gap de terminationon 03-21-2024 Anion gap [Moles/Vol] 12.2 mmol/L [facility] ECG 12 Leadon 02-28-2024 [facility] Work Phone: EKG performed today shows atrial flutter atypical at a rate of 95 bpm QRS duration 76 ms QT corrected 402 ms. Rhythm strip shows the same pattern. [facility] Work Phone: [facility] Work Phone: ECG 12 Leadon 02-25-2024 Atrial flutter with 221 AV block [facility] Work Phone: Basophils Auto (Bld) [#/Vol] on 02-08-2024 Basophils (Bld) [#/Vol] 0.0 10 3/uL 0.0-0.1 [facility] Basophils/100 WBC Auto (Bld) on 02-08-2024 Basophils/100 WBC (Bld) 0.1 % Low 0.2-2.0 [facility] Eosinophils/100 WBC Auto (Bl d)on 02-08-2024 Eosinophils/100 WBC (Bld) 0.2 % Low 0.9-7.0 [facility] Erythrocyte distribution wid th Auto (RBC) [Ratio]on 02-08-2024 Erythrocyte distribution width (RBC) [Ratio] 13.9 % 11.0-15.0 [facility] Estimated glomerular filtrat ion rate (GFR) non- Americanon 02-08-2024 GFR/1.73 sq M.predicted among non-blacks MDRD (S/P/Bld) [Vol rate/Area] mL/min/{1.73_m2} >=60 [facility] Globulin Calc (S) [Mass/Vol] on 02-08-2024 Globulin (S) [Mass/Vol] 3.0 g/dL [facility] Hematocrit Auto (Bld) [Volum e fraction]on 02-08-2024 Hematocrit (Bld) [Volume fraction] 40.7 % 36.0-48.0 [facility] Hemoglobin [Mass/volume] in Bloodon 02-08-2024 Hemoglobin (Bld) [Mass/Vol] 13.6 g/dL 12.0-16.0 [facility] Laboratory - Chemistry and C hemistry - challengeon 02-08-2024 Albumin [Mass/Vol] 2.8 g/dL Low 3.4-5.0 [facility] ALP [Catalytic activity/Vol] 85 U/L 46-116 [facility] ALT [Catalytic activity/Vol] 32 U/L 14-59 [facility] AST [Catalytic activity/Vol] 20 U/L 15-37 [facility] Bilirubin [Mass/Vol] 0.7 mg/dL 0.2-1.[address] [facility] Calcium [Mass/Vol] 9.0 mg/dL 8.5-10.1 [facility] Chloride [Moles/Vol] 103 mmol/L 98-[address] [facility] CO2 [Moles/Vol] 27.1 mmol/L 21.0-32.0 [facility] Creatinine [Mass/Vol] 0.82 mg/dL 0.55-1.02 [facility] GFR/1.73 sq M.predicted MDRD (S/P/Bld) [Vol rate/Area] mL/min/{1.73_m2} >=60 [facility] Glucose [Mass/Vol] 122 mg/dL High 74-106 [facility] Potassium [Moles/Vol] 4.6 mmol/L 3.5-5.1 [facility] Protein [Mass/Vol] 5.8 g/dL Low 6.4-8.2 [facility] Sodium [Moles/Vol] 135 mmol/L Low 136-145 [facility] Urea nitrogen [Mass/Vol] 30.0 mg/dL High 7.0-18.0 [facility] Urea nitrogen/Creatinine [Mass ratio] 36.6 mg/mg [facility] Laboratory - Hematology and Cell countson 02-08-2024 Immature granulocytes/100 WBC (Bld) 1.6 % High 0.0-0.5 [facility] Leukocytes [#/volume] correc anne marie for nucleated erythrocytes in Blood by Automated counon 02-08-2024 WBC corrected for nucl RBC Auto (Bld) [#/Vol] 12.9 10 3/uL High 4.0-11.0 [facility] Lymphocytes Auto (Bld) [#/Vo l]on 02-08-2024 Lymphocytes (Bld) [#/Vol] 0.9 10 3/uL Low 1.2-3.8 [facility] Lymphocytes/100 WBC Auto (Bl d)on 02-08-2024 Lymphocytes/100 WBC (Bld) 6.7 % Low 20.5-60.0 [facility] MCH Auto (RBC) [Entitic mass ]on 02-08-2024 MCH (RBC) [Entitic mass] 31.1 pg 26.7-34.0 [facility] MCHC Auto (RBC) [Mass/Vol]on 02-08-2024 MCHC (RBC) [Mass/Vol] 33.4 g/dL 29.9-35.2 [facility] MCV Auto (RBC) [Entitic vol] on 02-08-2024 MCV (RBC) [Entitic vol] 93.1 fL 81.0-99.0 [facility] Monocytes Auto (Bld) [#/Vol] on 02-08-2024 Monocytes (Bld) [#/Vol] 0.6 10 3/uL 0.3-0.8 [facility] Monocytes/100 WBC Auto (Bld) on 02-08-2024 Monocytes/100 WBC (Bld) 4.6 % 1.7-12.0 [facility] Neutrophils Auto (Bld) [#/Vo l]on 02-08-2024 Neutrophils (Bld) [#/Vol] 11.2 10 3/uL High 1.4-6.5 [facility] Neutrophils/100 WBC Auto (Bl d)on 02-08-2024 Neutrophils/100 WBC (Bld) 86.8 % High 43.0-75.0 [facility] No Panel Informationon 02-07 Eosinophils # (Auto) 0.0 10 3/uL 0.0-0.7 [facility] Immature Granulocyte # (Auto) 0.21 10 3/uL High 0.00-0.03 [facility] Platelet mean volume Auto (B ld) [Entitic vol]on 02-08-2024 Platelet mean volume (Bld) [Entitic vol] 10.4 fL 9.5-13.5 [facility] Platelets Auto (Bld) [#/Vol] on 02-08-2024 Platelets (Bld) [#/Vol] 204 10 3/uL 150-450 [facility] RBC Auto (Bld) [#/Vol]on RBC (Bld) [#/Vol] 4.37 10 6/uL 4.20-5.40 [facility] Serum or plasma albumin/glob ulin mass ratioon 02-08-2024 Albumin/Globulin [Mass ratio] 0.9 {ratio} [facility] Serum or plasma anion gap de terminationon 02-08-2024 Anion gap [Moles/Vol] 9.5 mmol/L [facility] Basophils Auto (Bld) [#/Vol] on 02-07-2024 Basophils (Bld) [#/Vol] 0.0 10 3/uL 0.0-0.1 [facility] Basophils/100 WBC Auto (Bld) on 02-07-2024 Basophils/100 WBC (Bld) 0.1 % Low 0.2-2.0 [facility] Eosinophils/100 WBC Auto (Bl d)on 02-07-2024 Eosinophils/100 WBC (Bld) 0.2 % Low 0.9-7.0 [facility] Erythrocyte distribution wid th Auto (RBC) [Ratio]on 02-07-2024 Erythrocyte distribution width (RBC) [Ratio] 14.1 % 11.0-15.0 [facility] Estimated glomerular filtrat ion rate (GFR) non- Americanon 02-07-2024 GFR/1.73 sq M.predicted among non-blacks MDRD (S/P/Bld) [Vol rate/Area] 51 mL/min/{1.73_m2} Low >=60 [facility] Globulin Calc (S) [Mass/Vol] on 02-07-2024 Globulin (S) [Mass/Vol] 3.2 g/dL [facility] Hematocrit Auto (Bld) [Volum e fraction]on 02-07-2024 Hematocrit (Bld) [Volume fraction] 46.3 % 36.0-48.0 [facility] Hemoglobin [Mass/volume] in Bloodon 02-07-2024 Hemoglobin (Bld) [Mass/Vol] 15.3 g/dL 12.0-16.0 [facility] Laboratory - Chemistry and C hemistry - challengeon 02-07-2024 Bilirubin Ql (U) Negative NEGATIVE [facility] Glucose (U) [Mass/Vol] Negative NEGATIVE [facility] Ketones Ql (U) Negative NEGATIVE [facility] pH (U) 6.0 [pH] 5.0-9.0 [facility] Specific gravity (U) [Rel density] >=1.030 Abnormal 1.005-1.02 5 [facility] Urobilinogen Qn (U) 1.0 {Sherrell'U}/dL 0.2-1.0 [facility] Albumin [Mass/Vol] 3.1 g/dL Low 3.4-5.0 [facility] ALP [Catalytic activity/Vol] 107 U/L 46-116 [facility] ALT [Catalytic activity/Vol] 38 U/L 14-59 [facility] AST [Catalytic activity/Vol] 19 U/L 15-37 [facility] Bilirubin [Mass/Vol] 0.7 mg/dL 0.2-1.[address] [facility] Bilirubin.direct [Mass/Vol] 0.2 mg/dL 0.0-0.2 [facility] Lipase [Catalytic activity/Vol] 66.0 U/L 16.0-77.0 [facility] Natriuretic peptide B (Bld) [Mass/Vol] 1679.0 pg/mL <=1800.0 [facility] Protein [Mass/Vol] 6.3 g/dL Low 6.4-8.2 [facility] Calcium [Mass/Vol] 9.3 mg/dL 8.5-10.1 [facility] Chloride [Moles/Vol] 104 mmol/L 98-[address] [facility] CO2 [Moles/Vol] 25.4 mmol/L 21.0-32.0 [facility] Creatinine [Mass/Vol] 1.03 mg/dL High 0.55-1.02 [facility] GFR/1.73 sq M.predicted MDRD (S/P/Bld) [Vol rate/Area] mL/min/{1.73_m2} >=60 [facility] Glucose [Mass/Vol] 137 mg/dL High 74-106 [facility] Potassium [Moles/Vol] 4.6 mmol/L 3.5-5.1 [facility] Sodium [Moles/Vol] 137 mmol/L 136-145 [facility] Urea nitrogen [Mass/Vol] 35.0 mg/dL High 7.0-18.0 [facility] Urea nitrogen/Creatinine [Mass ratio] 34.0 mg/mg [facility] Laboratory - Hematology and Cell countson 02-07-2024 Immature granulocytes/100 WBC (Bld) 1.6 % High 0.0-0.5 [facility] Laboratory - Specimen inform ationon 02-07-2024 Appearance (U) CLEAR CLEAR [facility] Color (U) YELLOW YELLOW [facility] Laboratory - Urinalysison Leukocyte esterase Test strip Ql (U) Negative NEGATIVE [facility] Nitrite Ql (U) Negative NEGATIVE [facility] Protein Ql (U) TRACE mg/dL NEG/TRACE [facility] Leukocytes [#/volume] correc anne marie for nucleated erythrocytes in Blood by Automated counon 02-07-2024 WBC corrected for nucl RBC Auto (Bld) [#/Vol] 18.4 10 3/uL High 4.0-11.0 [facility] Lymphocytes Auto (Bld) [#/Vo l]on 02-07-2024 Lymphocytes (Bld) [#/Vol] 1.0 10 3/uL Low 1.2-3.8 [facility] Lymphocytes/100 WBC Auto (Bl d)on 02-07-2024 Lymphocytes/100 WBC (Bld) 5.4 % Low 20.5-60.0 [facility] MCH Auto (RBC) [Entitic mass ]on 02-07-2024 MCH (RBC) [Entitic mass] 31.0 pg 26.7-34.0 [facility] MCHC Auto (RBC) [Mass/Vol]on 02-07-2024 MCHC (RBC) [Mass/Vol] 33.0 g/dL 29.9-35.2 [facility] MCV Auto (RBC) [Entitic vol] on 02-07-2024 MCV (RBC) [Entitic vol] 93.7 fL 81.0-99.0 [facility] Monocytes Auto (Bld) [#/Vol] on 02-07-2024 Monocytes (Bld) [#/Vol] 1.0 10 3/uL High 0.3-0.8 [facility] Monocytes/100 WBC Auto (Bld) on 02-07-2024 Monocytes/100 WBC (Bld) 5.4 % 1.7-12.0 [facility] Neutrophils Auto (Bld) [#/Vo l]on 02-07-2024 Neutrophils (Bld) [#/Vol] 16.1 10 3/uL High 1.4-6.5 [facility] Neutrophils/100 WBC Auto (Bl d)on 02-07-2024 Neutrophils/100 WBC (Bld) 87.3 % High 43.0-75.0 [facility] No Panel Informationon 02-06 Urine Microscopic Review NO [facility] Urine Occult Blood Negative NEGATIVE [facility] Troponin I High Sensitivity 50.2 pg/mL 4.0-51.3 [facility] Comment on above: CUT-OFF POINTS HAVE [...] Eosinophils # (Auto) 0.0 10 3/uL 0.0-0.7 [facility] Immature Granulocyte # (Auto) 0.29 10 3/uL High 0.00-0.03 [facility] Platelet mean volume Auto (B ld) [Entitic vol]on 02-07-2024 Platelet mean volume (Bld) [Entitic vol] 10.1 fL 9.5-13.5 [facility] Platelets Auto (Bld) [#/Vol] on 02-07-2024 Platelets (Bld) [#/Vol] 260 10 3/uL 150-450 [facility] RBC Auto (Bld) [#/Vol]on RBC (Bld) [#/Vol] 4.94 10 6/uL 4.20-5.40 [facility] Serum or plasma albumin/glob ulin mass ratioon 02-07-2024 Albumin/Globulin [Mass ratio] 1.0 {ratio} [facility] Serum or plasma anion gap de terminationon 02-07-2024 Anion gap [Moles/Vol] 12.2 mmol/L [facility] ECG 12 Leadon 01-22-2024 Normal sinus rhythm with normal QTc interval [facility] Work Phone: Magnesium [Mass/volume] in S vaughn or PlasmaOrdered By: Izzy Capps on 01-19-2024 Magnesium [Mass/Vol] 1.9 mg/dL 1.9-2.[address] [facility] Activated partial thrombopla stin time (aPTT) in platelet poor plasma by coagulation aOrdered By: Vic Mendez on 01-18-2024 aPTT Coag (PPP) [Time] 31.3 s 25.1-36.5 [facility] Comment on above: A hematocrit value g reater than 55% may lead to inaccurate results in coagulation testing. Patients having hematocrit values >55% require a special collection tube for coagulation studies. Please contact the laboratory at [phone] for redraw instructions. Alanine aminotransferase [En zymatic activity/volume] in Serum or PlasmaOrdered By: Vic Mendez on 01-18-2024 ALT [Catalytic activity/Vol] 29 U/L 7-52 [facility] Albumin [Mass/volume] in Ser um or Plasma by Bromocresol green (BCG) dye binding methoOrdered By: Vic Mendez on 01-18-2024 Albumin BCG dye [Mass/Vol] 3.7 g/dL 3.5-5.7 [facility] Alkaline phosphatase [Enzyma tic activity/volume] in Serum or PlasmaOrdered By: Vic Mendez on 01-18-2024 ALP [Catalytic activity/Vol] 63 U/L 34-104 [facility] Aspartate aminotransferase [ Enzymatic activity/volume] in Serum or PlasmaOrdered By: Vic Mendez on 01-18-2024 AST [Catalytic activity/Vol] 17 U/L 13-39 [facility] Basophils Auto (Bld) [#/Vol] Ordered By: Vic Mendez on 01-18-2024 Basophils (Bld) [#/Vol] 0.1 10*3/uL 0.0-0.2 [facility] Basophils/100 WBC Auto (Bld) Ordered By: Vci Mendez on 01-18-2024 Basophils/100 WBC (Bld) 0.5 % . [facility] Bilirubin.total [Mass/volume ] in Serum or PlasmaOrdered By: Vic Mendez on 01-18-2024 Bilirubin [Mass/Vol] 0.9 mg/dL 0.3-1.[address] [facility] Calcium [Mass/volume] in Ser um or PlasmaOrdered By: Vic Mendez on 01-18-2024 Calcium [Mass/Vol] 9.2 mg/dL 8.6-10.3 [facility] Carbon dioxide, total [Moles /volume] in Serum or PlasmaOrdered By: Vic Mendez on 01-18-2024 CO2 [Moles/Vol] 23.4 mmol/L 21.0-31.0 [facility] Chloride [Moles/volume] in S vaughn or PlasmaOrdered By: Vic Mendez on 01-18-2024 Chloride [Moles/Vol] 108 mmol/L High 98-[address] [facility] Creatine kinase [Enzymatic a ctivity/volume] in Serum or PlasmaOrdered By: Vic Mendez 01-18-2024 CK [Catalytic activity/Vol] 31 U/L 30-223 [facility] Creatinine [Mass/volume] in Serum or PlasmaOrdered By: Vic Mendez 01-18-2024 Creatinine [Mass/Vol] 0.96 mg/dL 0.60-1.20 [facility] Eosinophils Auto (Bld) [#/Vo l]Ordered By: Vic Mendez on 01-18-2024 Eosinophils (Bld) [#/Vol] 0.1 10*3/uL 0.0-0.45 [facility] Eosinophils/100 WBC Auto (Bl d)Ordered By: Vic Mendez on 01-18-2024 Eosinophils/100 WBC (Bld) 1.2 % . [facility] Erythrocyte distribution wid th Auto (RBC) [Ratio]Ordered By: Vic Mendez on 01-18-2024 Erythrocyte distribution width (RBC) [Ratio] 14.1 % 11.9-15.3 [facility] Globulin Calc (S) [Mass/Vol] Ordered By: Vic Mendez on 01-18-2024 Globulin (S) [Mass/Vol] 2.3 g/dL [facility] Glucose [Mass/volume] in Ser um or PlasmaOrdered By: Vic Mendez on 01-18-2024 Glucose [Mass/Vol] 102 mg/dL High 70-100 [facility] Comment on above: ADA recommended refe rence rangeRandom Glucose Reference Range is dependent on time and content of last meal. Glucose of more than 200 mg/dL in a nonstressed, ambulatory subject supports the diagnosis of Diabetes Mellitus. Hematocrit Auto (Bld) [Volum e fraction]Ordered By: Vic Mendez on 01-18-2024 Hematocrit (Bld) [Volume fraction] 45.9 % 34.0-46.4 [facility] Hemoglobin [Mass/volume] in BloodOrdered By: Vic Mendez on 01-18-2024 Hemoglobin (Bld) [Mass/Vol] 15.5 g/dL High 11.8-15.4 [facility] INR in Platelet poor plasma by Coagulation assayOrdered By: Vic Mendez on 01-18-2024 INR Coag (PPP) [Relative time] 1.5 {INR} [facility] Comment on above: INR Therapeutic [...] RBC Auto (Bld) [#/Vol] 10.4 10*3/uL 3.8-11.6 [facility] Lymphocytes Auto (Bld) [#/Vo l]Ordered By: Vic Mendez on 01-18-2024 Lymphocytes (Bld) [#/Vol] 1.0 10*3/uL 1.00-4.8 [facility] Lymphocytes/100 WBC Auto (Bl d)Ordered By: Vic Mendez on 01-18-2024 Lymphocytes/100 WBC (Bld) 9.2 % . [facility] MCH Auto (RBC) [Entitic mass ]Ordered By: Vic Mendez on 01-18-2024 MCH (RBC) [Entitic mass] 31.2 pg 24.7-34.3 [facility] MCHC Auto (RBC) [Mass/Vol]Or dered By: Vic Mendez on 01-18-2024 MCHC (RBC) [Mass/Vol] 33.7 g/dL 32.0-35.0 [facility] MCV Auto (RBC) [Entitic vol] Ordered By: Vic Mendez on 01-18-2024 MCV (RBC) [Entitic vol] 92.6 fL 80-100 [facility] Magnesium [Mass/volume] in S vaughn or PlasmaOrdered By: Vic Mendez on 01-18-2024 Magnesium [Mass/Vol] 1.9 mg/dL 1.9-2.[address] [facility] Monocyte distribution width [Entitic volume] in Blood by AutomatedOrdered By: Vic Mendez on 01-18-2024 Monocyte distribution width Auto (Bld) [Entitic vol] 18.06 % 0.00-20.00 [facility] Monocytes Auto (Bld) [#/Vol] Ordered By: Vic Mendez on 01-18-2024 Monocytes (Bld) [#/Vol] 0.8 10*3/uL 0.0-0.8 [facility] Monocytes/100 WBC Auto (Bld) Ordered By: Vic Mendez on 01-18-2024 Monocytes/100 WBC (Bld) 7.6 % . [facility] Neutrophils Auto (Bld) [#/Vo l]Ordered By: Vic Mendez on 01-18-2024 Neutrophils (Bld) [#/Vol] 8.5 10*3/uL High 1.8-7.7 [facility] Neutrophils/100 WBC Auto (Bl d)Ordered By: Vic Mendez on 01-18-2024 Neutrophils/100 WBC (Bld) 81.5 % . [facility] No Panel InformationOrdered By: Vic Mendez on 01-18-2024 Estimated GFR (CKD-EPI) 59.440 mL/Min [facility] Creatinine Clearance (Chem 40.09 [facility] Nucleated erythrocytes [Pres ence] in Blood by Automated countOrdered By: Vic Mendez on 01-18-2024 Nucleated RBC Auto Ql (Bld) 0.1 /100{WBC} 0-0.5 [facility] Platelet mean volume Auto (B ld) [Entitic vol]Ordered By: Vic Mendez on 01-18-2024 Platelet mean volume (Bld) [Entitic vol] 8.5 fL 6.3-10.7 [facility] Platelets Auto (Bld) [#/Vol] Ordered By: Vic Mendez on 01-18-2024 Platelets (Bld) [#/Vol] 205 10*3/uL 150-450 [facility] Potassium [Moles/volume] in Serum or PlasmaOrdered By: Vic Mendez on 01-18-2024 Potassium [Moles/Vol] 4.1 mmol/L 3.5-5.1 [facility] Protein [Mass/volume] in Ser um or PlasmaOrdered By: Vic Mendez on 01-18-2024 Protein [Mass/Vol] 6.0 g/dL Low 6.4-8.9 [facility] Prothrombin time (PT)Ordered By: Vic Mendez on 01-18-2024 PT Coag (PPP) [Time] 16.8 s High 9.0-12.[address] [facility] Comment on above: A hematocrit value g reater than 55% may lead to inaccurate results in coagulation testing. Patients having hematocrit values >55% require a special collection tube for coagulation studies. Please contact the laboratory at [phone] for redraw instructions. RBC Auto (Bld) [#/Vol]Ordere d By: Vic Mendez on 01-18-2024 RBC (Bld) [#/Vol] 4.96 10*6/uL 3.60-5.00 [facility] Serum or plasma albumin/glob ulin mass ratioOrdered By: Vic Mendez on 01-18-2024 Albumin/Globulin [Mass ratio] 1.6 {ratio} [facility] Serum or plasma anion gap de terminationOrdered By: Vic Mendez on 01-18-2024 Anion gap [Moles/Vol] 11.7 mmol/L 6.0-15.0 [facility] Sodium [Moles/volume] in Ser um or PlasmaOrdered By: Vic Mendez on 01-18-2024 Sodium [Moles/Vol] 139 mmol/L 136-145 [facility] Thyrotropin [Units/volume] i n Serum or PlasmaOrdered By: Izzy Capps on 01-18-2024 TSH Qn 0.83 m[IU]/L 0.45-5.33 [facility] Troponin I.cardiac [Mass/vol ume] in Serum or Plasma by Detection limit <= 0.01 ng/Ordered By: Vic Mendez on 01-18-2024 Troponin I.cardiac DL <= 0.01 ng/mL [Mass/Vol] 14.7 pg/mL 0.0-15.0 [facility] Urea nitrogen [Mass/volume] in Serum or PlasmaOrdered By: Vic Mendez on 01-18-2024 Urea nitrogen [Mass/Vol] 29 mg/dL High 7-25 [facility] WBC Auto (Bld) [#/Vol]Ordere d By: Vic Mendez on 01-18-2024 WBC (Bld) [#/Vol] 10.4 10*3/uL 3.8-11.6 [facility] ECG 12 [place] 09-19-2023 Rhythm appeared to b e atrial flutter with 2/ 1 [address] block with nonspecific ST-T changes [facility] Work Phone: [phone] US Heart Transthoracicon Aortic Valve Area by Continuity of Peak Velocity 2.36 [facility] Work Phone: [phone] Aortic Valve Area by Continuity of VTI 2.33 [facility] Work Phone: [phone] AV mn grad 2.0 [facility] Work Phone: [phone] AV pk grad 3.5 [facility] Work Phone: [phone] AV pk douglas 0.94 [facility] Work Phone: LV A4C EF 63.6 [facility] Work Phone: LVIDd 3.20 [facility] Work Phone: LVOT diam 1.90 [facility] Work Phone: MV avg E/e' ratio 20.20 [facility] Work Phone: RVSP 32.8 [place] [facility] Work Phone: [address], [address] [address] TRANSTHORACIC ECHOCARDIOGRAM REPORT Patient Name: AUSTIN GOLDEN Reading Physician: [id number] Mac MD Study Date: 08/21/2023 Ordering Provider: Zurdo MAC MRN/PID: [id number] Fellow: Nurse: Date of /Age: 1 1940 / 82 years Nursing Home Assistant Administrator: Iqra Pham RDCS, RVT Gender: F Additional Staff: Height: 149.86 cm Admit Date: Weight: 74.84 kg Admission Status: BSA: 1.70 m2 Department Location: [facility] Blood Pressure: 116 /64 mmHg Study Type: TRANSTHORACIC ECHO (TTE) COMPLETE Diagnosis/ICD: Chronic diastolic (congestive) heart failure (CHF)-I50.32; Essential (primary) hypertension-I10; Dyspnea, unspecified-R06.00 Indication: Atrial Fibrillation, Sick Sinus Syndrome, Hyerlipidemia, Pacemaker, Overweight, CKD-Stage III CPT Codes: Echo Complete w Full Doppler-[id number] Study Detail: The following Echo studies were [...] included)... Debbie Dominique MD - 08/22/[address], [address] [place] [address] TRANSTHORACIC ECHOCARDIOGRAM REPORT Patient Name: AUSTIN Chalino ZANDER Arriaga Physician: Zurdo Mac MD Study Date: 08/21/2023 Ordering Provider: Zurdo MAC MRN/PID: [id number] Fellow: Nurse: Date of /Age: 1 1940 / 82 years Nursing Home Assistant Administrator: Iqra Pham RDCS, RVT Gender: F Additional Staff: Height: 149.86 cm Admit Date: Weight: 74.84 kg Admission Status: BSA: 1.70 m2 Department Location: [facility] Blood Pressure: 116 /64 mmHg Study Type: TRANSTHORACIC ECHO (TTE) COMPLETE Diagnosis/ICD: Chronic diastolic (congestive) heart failure (CHF)-I50.32; Essential (primary) hypertension-I10; Dyspnea, unspecified-R06.00 Indication: Atrial Fibrillation, Sick Sinus Syndrome, Hyerlipidemia, Pacemaker, Overweight, CKD-Stage III CPT Codes: Echo Complete w Full Doppler-64063 Study Detail: The following Echo studies were [...] 0.7 m/s (0.6-0.9m/s) PV Max P.8 mmHg [id number] Debbie Mac MD Electronically signed on 08/22/2023 at 12:31:20 PM Final [facility] Work Phone: [facility] Work Phone: ECG 12 Leadon 05-31-2023 Paced atrial rhythm with normal QTc interval [facility] Work Phone: Alkaline phosphatase [Enzyma tic activity/volume] in Serum or PlasmaOrdered By: Wilbur Watson on 03-05-2023 ALP [Catalytic activity/Vol] 82 U/L 34-104 [facility] Amylase [Enzymatic activity/ volume] in Serum or PlasmaOrdered By: Wilbur Watson on 03-05-2023 Amylase [Catalytic activity/Vol] 32 U/L 29-103 [facility] Aspartate aminotransferase [ Enzymatic activity/volume] in Serum or PlasmaOrdered By: Wilbur Watson on 03-05-2023 AST [Catalytic activity/Vol] 19 U/L 13-39 [facility] Bilirubin.direct [Mass/volum e] in Serum or PlasmaOrdered By: Wilbur Watson on 03-05-2023 Bilirubin.direct [Mass/Vol] 0.20 mg/dL 0.03-0.18 [facility] Bilirubin.total [Mass/volume ] in Serum or PlasmaOrdered By: Wilbur Watson on 03-05-2023 Bilirubin [Mass/Vol] 0.7 mg/dL 0.3-1.[address] [facility] Lipase [Enzymatic activity/v olume] in Serum or PlasmaOrdered By: Wilbur Watson on 03-05-2023 Lipase [Catalytic activity/Vol] 31.0 U/L 11.0-82.0 [facility] Serum or plasma non-glucuron idated bilirubin measurement (mass/volume)Ordered By: Wilbur Watson on 03-05-2023 Bilirubin.indirect [Mass/Vol] 0.5 mg/dL [facility] Basophils Auto (Bld) [#/Vol] Ordered By: Wilbur Watson on 02-26-2023 Basophils (Bld) [#/Vol] 0.0 10*3/uL 0.0-0.2 [facility] Basophils/100 WBC Auto (Bld) Ordered By: Wilbur Watson on 02-26-2023 Basophils/100 WBC (Bld) 0.5 % . [facility] Calcium [Mass/volume] in Ser um or PlasmaOrdered By: Wilbur Watson on 02-26-2023 Calcium [Mass/Vol] 9.0 mg/dL 8.6-10.3 [facility] Carbon dioxide, total [Moles /volume] in Serum or PlasmaOrdered By: Wilbur Watson on 02-26-2023 CO2 [Moles/Vol] 24.7 mmol/L 21.0-31.0 [facility] Chloride [Moles/volume] in S vaughn or PlasmaOrdered By: Wilbur Watson on 02-26-2023 Chloride [Moles/Vol] 108 mmol/L 98-[address] [facility] Creatinine [Mass/volume] in Serum or PlasmaOrdered By: Wilbur Watson on 02-26-2023 Creatinine [Mass/Vol] 1.03 mg/dL 0.60-1.20 [facility] Eosinophils Auto (Bld) [#/Vo l]Ordered By: Wilbur Watson on 02-26-2023 Eosinophils (Bld) [#/Vol] 0.2 10*3/uL 0.0-0.45 [facility] Eosinophils/100 WBC Auto (Bl d)Ordered By: Wilbur Watson on 02-26-2023 Eosinophils/100 WBC (Bld) 2.2 % . [facility] Erythrocyte distribution wid th Auto (RBC) [Ratio]Ordered By: Wilbur Watson on 02-26-2023 Erythrocyte distribution width (RBC) [Ratio] 13.8 % 11.9-15.3 [facility] Glucose [Mass/volume] in Ser um or PlasmaOrdered By: Wilbur Watson on 02-26-2023 Glucose [Mass/Vol] 81 mg/dL 70-100 [facility] Comment on above: ADA recommended refe rence rangeRandom Glucose Reference Range is dependent on time and content of last meal. Glucose of more than 200 mg/dL in a nonstressed, ambulatory subject supports the diagnosis of Diabetes Mellitus. Hematocrit Auto (Bld) [Volum e fraction]Ordered By: Wilbur Watson on 02-26-2023 Hematocrit (Bld) [Volume fraction] 44.1 % 34.0-46.4 [facility] Hemoglobin [Mass/volume] in BloodOrdered By: Wilbur Watson on 02-26-2023 Hemoglobin (Bld) [Mass/Vol] 14.9 g/dL 11.8-15.4 [facility] Leukocytes [#/volume] correc anne marie for nucleated erythrocytes in Blood by Automated counOrdered By: Wilbur Watson on 02-26-2023 WBC corrected for nucl RBC Auto (Bld) [#/Vol] 8.3 10*3/uL 3.8-11.6 [facility] Lymphocytes Auto (Bld) [#/Vo l]Ordered By: Wilbur Watson on 02-26-2023 Lymphocytes (Bld) [#/Vol] 0.9 10*3/uL 1.00-4.8 [facility] Lymphocytes/100 WBC Auto (Bl d)Ordered By: Wilbur Watson on 02-26-2023 Lymphocytes/100 WBC (Bld) 10.3 % . [facility] MCH Auto (RBC) [Entitic mass ]Ordered By: Wilbur Watson on 02-26-2023 MCH (RBC) [Entitic mass] 30.5 pg 24.7-34.3 [facility] MCHC Auto (RBC) [Mass/Vol]Or dered By: Wilbur Watson on 02-26-2023 MCHC (RBC) [Mass/Vol] 33.8 g/dL 32.0-35.0 [facility] MCV Auto (RBC) [Entitic vol] Ordered By: Wilbur Watson on 02-26-2023 MCV (RBC) [Entitic vol] 90.4 fL 80-100 [facility] Monocytes Auto (Bld) [#/Vol] Ordered By: Wilbur Watson on 02-26-2023 Monocytes (Bld) [#/Vol] 0.6 10*3/uL 0.0-0.8 [facility] Monocytes/100 WBC Auto (Bld) Ordered By: Wilbur Watson on 02-26-2023 Monocytes/100 WBC (Bld) 7.1 % . [facility] Neutrophils Auto (Bld) [#/Vo l]Ordered By: Wilbur Watson on 02-26-2023 Neutrophils (Bld) [#/Vol] 6.6 10*3/uL 1.8-7.7 [facility] Neutrophils/100 WBC Auto (Bl d)Ordered By: Wilbur Watson on 02-26-2023 Neutrophils/100 WBC (Bld) 79.9 % . [facility] No Panel InformationOrdered By: Wilbur Watson on 02-26-2023 Estimated GFR (CKD-EPI) 54.967 mL/Min [facility] Creatinine Clearance (Chem N/A [facility] Nucleated erythrocytes [Pres ence] in Blood by Automated countOrdered By: Wilbur Watson on 02-26-2023 Nucleated RBC Auto Ql (Bld) 0.0 /100{WBC} 0-0.5 [facility] Platelet mean volume Auto (B ld) [Entitic vol]Ordered By: Wilbur Watson on 02-26-2023 Platelet mean volume (Bld) [Entitic vol] 8.9 fL 6.3-10.7 [facility] Platelets Auto (Bld) [#/Vol] Ordered By: Wilbur Watson on 02-26-2023 Platelets (Bld) [#/Vol] 194 10*3/uL 150-450 [facility] Potassium [Moles/volume] in Serum or PlasmaOrdered By: Wilbur Watson on 02-26-2023 Potassium [Moles/Vol] 4.3 mmol/L 3.5-5.1 [facility] RBC Auto (Bld) [#/Vol]Ordere d By: Wilbur Watson on 02-26-2023 RBC (Bld) [#/Vol] 4.88 10*6/uL 3.60-5.00 [facility] Serum or plasma anion gap de terminationOrdered By: Wilbur Watson on 02-26-2023 Anion gap [Moles/Vol] 12.6 mmol/L 6.0-15.0 [facility] Sodium [Moles/volume] in Ser um or PlasmaOrdered By: Wilbur Watson on 02-26-2023 Sodium [Moles/Vol] 141 mmol/L 136-145 [facility] Urea nitrogen [Mass/volume] in Serum or PlasmaOrdered By: Wilbur Watson on 02-26-2023 Urea nitrogen [Mass/Vol] 32 mg/dL 7 [facility] WBC Auto (Bld) [#/Vol]Ordere d By: Wilbur Watson on 02-26-2023 WBC (Bld) [#/Vol] 8.3 10*3/uL 3.8-11.6 [facility] Falls Screening (Age 18+)on 01-25-2023 Fall risk assessment a) No falls within the last year [facility] Work Phone: Tobacco use status CPHS b) No [facility] Work Phone: Office Visit (Cardiology)on 01-25-2023 [...] TABLET B (more content not included)... Normal [employer] Activated partial thrombopla stin time (aPTT) in platelet poor plasma by coagulation aOrdered By: Debbie Mac on 01-09-2023 aPTT Coag (PPP) [Time] 19.5 s 25.1-36.5 [facility] Basophils Auto (Bld) [#/Vol] Ordered By: Debbie Mac on 01-09-2023 Basophils (Bld) [#/Vol] 0.0 10*3/uL 0.0-0.2 [facility] Basophils/100 WBC Auto (Bld) Ordered By: Debbie Mac on 01-09-2023 Basophils/100 WBC (Bld) 0.6 % . [facility] Carbon dioxide, total [Moles /volume] in Serum or PlasmaOrdered By: Debbie Mac on 01-09-2023 CO2 [Moles/Vol] 25.6 mmol/L 21.0-31.0 [facility] Chloride [Moles/volume] in S vaughn or PlasmaOrdered By: Debbie Mac on 01-09-2023 Chloride [Moles/Vol] 106 mmol/L 98-[address] [facility] Cholesterol [Mass/volume] in Serum or PlasmaOrdered By: Debbie Mac on 01-09-2023 Cholesterol [Mass/Vol] 135 mg/dL 140-200 [facility] Comment on above: Chol less than 200 m g/dl low riskChol 201-239 mg/dl borderline riskChol 240 mg/dl and greater high risk Cholesterol in LDL Calc [Mas s/Vol]Ordered By: Debbie Mac on 01-09-2023 Cholesterol in LDL [Mass/Vol] 45 mg/dL 0-100 [facility] Comment on above: LDL ATP III CLASSIFI CATIONLDL less than 100 mg/dL OptimalLDL 100-129 mg/dL Near or above optimalLDL 130-159 mg/dL Borderline highLDL 160-189 mg/dL HighLDL greater than 189 mg/dL Very high Cholesterol in VLDL Calc [Ma ss/Vol]Ordered By: Debbie Mac on 01-09-2023 Cholesterol in VLDL [Mass/Vol] 13 mg/dL [facility] Creatinine [Mass/volume] in Serum or PlasmaOrdered By: Debbie Mac on 01-09-2023 Creatinine [Mass/Vol] 0.98 mg/dL 0.60-1.20 [facility] Eosinophils Auto (Bld) [#/Vo l]Ordered By: Debbie Mac on 01-09-2023 Eosinophils (Bld) [#/Vol] 0.2 10*3/uL 0.0-0.45 [facility] Eosinophils/100 WBC Auto (Bl d)Ordered By: Debbie Mac on 01-09-2023 Eosinophils/100 WBC (Bld) 2.9 % . [facility] Erythrocyte distribution wid th Auto (RBC) [Ratio]Ordered By: Debbie Mac on 01-09-2023 Erythrocyte distribution width (RBC) [Ratio] 14.5 % 11.9-15.3 [facility] Hematocrit Auto (Bld) [Volum e fraction]Ordered By: Debbie Mac on 01-09-2023 Hematocrit (Bld) [Volume fraction] 43.9 % 34.0-46.4 [facility] Hemoglobin [Mass/volume] in BloodOrdered By: Debbie Mac on 01-09-2023 Hemoglobin (Bld) [Mass/Vol] 14.7 g/dL 11.8-15.4 [facility] Laboratory - Chemistry and C hemistry - challengeon 01-09-2023 Cholesterol [Mass/Vol] 135\S\135 below low threshold 140-200 [facility] Work Phone: Comment on above: Chol less than 200 m g/dl low risk Chol 201-239 mg/dl borderline risk Chol 240 mg/dl and greater high risk Cholesterol in LDL [Mass/Vol] 45\S\45 Normal 0-100 [facility] Work Phone: Comment on above: LDL ATP III CLASSIFI CATION LDL less than 100 mg/dL Optimal LDL 100-129 mg/dL Near or above optimal LDL 130-159 mg/dL Borderline high LDL 160-189 mg/dL High LDL greater than 189 mg/dL Very high Laboratory - CoagulationOrde red By: Debbie Mac on 01-09-2023 PT Coag (PPP) [Time] 11.5 s 9.0-12.[address] [facility] Leukocytes [#/volume] correc anne marie for nucleated erythrocytes in Blood by Automated counOrdered By: Debbie Mac on 01-09-2023 WBC corrected for nucl RBC Auto (Bld) [#/Vol] 7.1 10*3/uL 3.8-11.6 [facility] Lymphocytes Auto (Bld) [#/Vo l]Ordered By: Debbie Mac on 01-09-2023 Lymphocytes (Bld) [#/Vol] 1.0 10*3/uL 1.00-4.8 [facility] Lymphocytes/100 WBC Auto (Bl d)Ordered By: Debbie Mac on 01-09-2023 Lymphocytes/100 WBC (Bld) 14.7 % . [facility] MCH Auto (RBC) [Entitic mass ]Ordered By: Debbie Mac on 01-09-2023 MCH (RBC) [Entitic mass] 29.8 pg 24.7-34.3 [facility] MCHC Auto (RBC) [Mass/Vol]Or dered By: Debbie Mac on 01-09-2023 MCHC (RBC) [Mass/Vol] 33.5 g/dL 32.0-35.0 [facility] MCV Auto (RBC) [Entitic vol] Ordered By: Debbie Mac on 01-09-2023 MCV (RBC) [Entitic vol] 89.1 fL 80-100 [facility] Monocytes Auto (Bld) [#/Vol] Ordered By: Debbie Mac on 01-09-2023 Monocytes (Bld) [#/Vol] 0.5 10*3/uL 0.0-0.8 [facility] Monocytes/100 WBC Auto (Bld) Ordered By: Debbie Mac on 01-09-2023 Monocytes/100 WBC (Bld) 7.0 % . [facility] Neutrophils Auto (Bld) [#/Vo l]Ordered By: Debbie Mac on 01-09-2023 Neutrophils (Bld) [#/Vol] 5.3 10*3/uL 1.8-7.7 [facility] Neutrophils/100 WBC Auto (Bl d)Ordered By: Debbie Mac on 01-09-2023 Neutrophils/100 WBC (Bld) 74.8 % . [facility] No Panel Informationon 01-09 74.8\S\74.8 Normal . [facility] Work Phone: 8.8\S\8.8 Normal 6.3-10.7 [facility] Work Phone: [phone] 167\S\167 Normal 150-450 [facility] Work Phone: 14.5\S\14.5 Normal 11.9-15.3 [facility] Work Phone: [phone] 33.5\S\33.5 Normal 32.0-35.0 [facility] Work Phone: [phone] 29.8\S\29.8 Normal 24.7-34.3 [facility] Work Phone: [phone] 5.3\S\5.3 Normal 1.8-7.7 [facility] Work Phone: [phone] 0.1\S\0.1 Normal 0-0.5 [facility] Work Phone: [phone] 0.6\S\0.6 Normal . [facility] Work Phone: 2.9\S\2.9 Normal . [facility] Work Phone: 7.0\S\7.0 Normal . [facility] Work Phone: [phone] 14.7\S\14.7 Normal 11.8-15.4 [facility] Work Phone: [phone] 0.0\S\0.0 Normal 0.0-0.2 [facility] Work Phone: [phone] Comment on above: PERFORMED BY:[place] [address] [address] [place], [place] [phone] MEDICAL DIRECTORVITOR ZARATE M.D. 0.2\S\0.2 Normal 0.0-0.45 [facility] Work Phone: [phone] 0.5\S\0.5 Normal 0.0-0.8 [facility] Work Phone: [phone] 1.0\S\1.0 Normal 1.00-4.8 [facility] Work Phone: 89.1\S\89.1 Normal 80-100 [facility] Work Phone: 43.9\S\43.9 Normal 34.0-46.4 [facility] Work Phone: 4.92\S\4.92 Normal 3.60-5.00 [facility] Work Phone: 7.1\S\7.1 Normal 3.8-11.6 [facility] Work Phone: 4.5\S\4.5 Normal 3.5-5.1 [facility] Work Phone: Comment on above: PERFORMED BY:[place] [address] [place] [place], [place] [phone] MEDICAL DIRECTORVITOR ZARATE M.D. 1.8\S\1.8 Normal <5.0 [facility] Work Phone: Comment on above: PERFORMED BY:[place] [address] [place] [place], [place] [phone] MEDICAL DIRECTORVITOR ZARATE M.D. 13\S\13 Normal [facility] Work Phone: 69\S\69 Normal 0-149 [facility] Work Phone: Comment on above: TRIG ATP III CLASSIF ICATION TRIG less than 150 mg/dL Normal TRIG 150-199 mg/dL Borderline high TRIG 200-500 mg/dL High TRIG greater than 500 mg/dL Very high Standard traceable to the Center for Disease Conrtrol and Prevention (CDC) test method. 76\S\76 Normal 35-85 [facility] Work Phone: Comment on above: HDL CHOL ATP-III CLA SSIFICATION Cardiovascular Risk HDL > or equal to 60 mg/dL LOW HDL < 40 mg/dL HIGH 19.5\S\19.5 below low threshold 25.1-36.5 [facility] Work Phone: Comment on above: PERFORMED BY:[place] [address] [place] [place], [place] [phone] MEDICAL SUZETTE ZARATE M.D. 1.0\S\1.0 Normal [facility] Work Phone: Comment on above: INR [...] valves: 3 - 4.5 11.5\S\11.5 Normal 9.0-12.9 [facility] Work Phone: Test not performed\S \Test not performed Normal 6.0-15.0 [facility] Work Phone: [phone] 25.6\S\25.6 Normal 21.0-31.0 [facility] Work Phone: [phone]\S\106 Normal 98-107 [facility] Work Phone: [phone] Normal 3.5-5.1 [facility] Work Phone: [phone] Comment on above: Specimen hemolyzed, redraw requested 138\S\138 Normal 136-145 [facility] Work Phone: [phone] 22\S\22 Normal 7-25 [facility] Work Phone: [phone] 40.90\S\40.90 Normal [facility] Work Phone: [phone] Comment on above: PERFORMED BY:[place] [address] [place] [place], [place] [phone] MEDICAL DIRECTORVITOR ZARATE M.D. 58.349\S\58.[address] [facility] Work Phone: [phone] 0.98\S\0.98 Normal 0.60-1.20 [facility] Work Phone: [phone] No Panel InformationOrdered By: Debbie Mac on 01-09-2023 Estimated GFR (CKD-EPI) 58.349 mL/Min [facility] Creatinine Clearance (Chem 40.90 [facility] Nucleated erythrocytes [Pres ence] in Blood by Automated countOrdered By: Debbie Mac on 01-09-2023 Nucleated RBC Auto Ql (Bld) 0.1 /100{WBC} 0-0.5 [facility] Platelet mean volume Auto (B ld) [Entitic vol]Ordered By: Debbie Mac on 01-09-2023 Platelet mean volume (Bld) [Entitic vol] 8.8 fL 6.3-10.7 [facility] Platelet poor plasma interna tional normalized ratio (INR) by coagulation assay (relatOrdered By: Debbie Mac on 01-09-2023 INR Coag (PPP) [Relative time] 1.0 {INR} [facility] Comment on above: INR Therapeutic [...] 01-09-2023 Platelets (Bld) [#/Vol] 167 10*3/uL 150-450 [facility] Potassium [Moles/volume] in Serum or PlasmaOrdered By: Debbie Mac on 01-09-2023 Potassium [Moles/Vol] 4.5 mmol/L 3.5-5.1 [facility] RBC Auto (Bld) [#/Vol]Ordere d By: Debbie Mca on 01-09-2023 RBC (Bld) [#/Vol] 4.92 10*6/uL 3.60-5.00 [facility] Serum or plasma anion gap de terminationOrdered By: Debbie Mac on 01-09-2023 Anion gap [Moles/Vol] TNP [facility] Comment on above: Test not performed Serum or plasma high density lipoprotein (HDL) cholesterol measurementOrdered By: Debbie Mac on 01-09-2023 Cholesterol in HDL [Mass/Vol] 76 mg/dL 35-85 [facility] Comment on above: HDL CHOL ATP-III CLA SSIFICATION Cardiovascular RiskHDL > or equal to 60 mg/dL LOWHDL < 40 mg/dL HIGH Serum or plasma total choles terol/high density lipoprotein (HDL) cholesterol mass ratOrdered By: Debbie Mac on 01-09-2023 Cholesterol.total/Chol esterol in HDL [Mass ratio] 1.8 {ratio} <5.0 [facility] Sodium [Moles/volume] in Ser um or PlasmaOrdered By: Debbie Mac on 01-09-2023 Sodium [Moles/Vol] 138 mmol/L 136-145 [facility] Triglyceride [Mass/volume] i n Serum or PlasmaOrdered By: Debbie Mac on 01-09-2023 Triglyceride [Mass/Vol] 69 mg/dL 0-149 [facility] Comment on above: TRIG ATP III CLASSIF ICATIONTRIG less than 150 mg/dL NormalTRIG 150-199 mg/dL Borderline highTRIG 200-500 mg/dL High TRIG greater than 500 mg/dL Very highStandard traceable to the Center for Disease Conrtrol and Prevention (CDC) test method. Urea nitrogen [Mass/volume] in Serum or PlasmaOrdered By: Debbie Mac on 01-09-2023 Urea nitrogen [Mass/Vol] 22 mg/dL 7-25 [facility] WBC Auto (Bld) [#/Vol]Ordere d By: Debbie Mac on 01-09-2023 WBC (Bld) [#/Vol] 7.1 10*3/uL 3.8-11.6 [facility] Office Visit (Cardiology)on 01-04-2023 Follow-up visit [...] in adult Healthy Weight Tips; Status:Complete; Done: [id number] Some eating tips that can help you lose weight.; Status:Complete; Done: [id number] Diastolic heart failure, Dyspnea, Essential hypertension, benign, Persistent atrial fibrillation, 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 Cardiac Catherization; Status:Active; Requested for:[id number]; Persistent atrial fibrillation IO EKG Electrocardiogram- 12 Lead; Status:Complete; Done: [id number] SocHx: Never a smoker Tobacco Use Screening; Status:Complete; Done: [id number] Patient Instructions Please bring all medicines, vitamins, [...] and alternat (more content not included)... Normal [facility] TROPONIN, HIGH SENSITIVITYon 01-04-2023 HSTROP 73.1 pg/mL Critically high 4.0-51.3 [facility] Comment on above: Result Comment: CUT- OFF POINTS HAVE BEEN ESTABLISHED BASED ON THE FOURTH UNIVERSAL DEFINITIONS OF MYOCARDIAL INFARCTION. THE UPPER REFERENCE LIMIT (URL) OF TROPONIN, DEFINED THE 99TH PERCENTILE OF cTnI DISTRIBUTION IN A REFERENCE POPULATION, HAS BEEN CONFIRMED THE DECISION THRESHOLD FOR TX DIAGNOSIS. Performed By: #### H STRO #### [facility] [address] [address] [address] Lori Sutton Tobacco Screening.on 023 Tobacco use status CPHS b) [facility] Work Phone: XR CHEST 1 Von [...] Date: 2023-01-03 22:39 Normal [facility] BNPon 01-03-2023 Natriuretic peptide B (Bld) [Mass/Vol] 438.0 pg/mL Normal <=1,800.0 [facility] Comment on above: Performed By: #### B SECURITY SYSTEMS MANAGER ####[facility] [address] [place], [place] [address]Dr. Estephaniaurbano Sutton CBC AUTO DIFFon 01-03-2023 BASO # 0.0 103/ul Normal 0.0-0.1 [facility] Comment on above: Performed By: #### C BC ####[facility] [address] [place], [place] [address]Dr. Lori Sutton Basophils/100 WBC (Bld) 0.7 % Normal 0.2-2.0 [facility] Comment on above: Performed By: #### C BC ####[facility] [address] [place], [place] [address]Dr. Lori Sutton EO # 0.2 103/ul Normal 0.0-0.7 [facility] Comment on above: Performed By: #### C BC ####[facility] [address] [place], [place] [address]Dr. Lori Sutton Eosinophils/100 WBC (Bld) 4.2 % Normal 0.9-7.0 [facility] Comment on above: Performed By: #### C BC ####[facility] [address] [place], [place] [address]Dr. Lori Sutton Erythrocyte distribution width (RBC) [Ratio] 13.7 % Normal 11.0-15.0 [facility] Comment on above: Performed By: #### C BC ####[facility] [address] [place] [address]Dr. Lori Sutton Hematocrit (Bld) [Volume fraction] 46.1 % Normal 36.0-48.0 [facility] Comment on above: Performed By: #### C BC ####[facility] [address] [place], [place] [address]Dr. Lori Sutton Hemoglobin (Bld) [Mass/Vol] 14.7 g/dL Normal 12.0-16.0 [facility] Comment on above: Performed By: #### C BC ####[facility] [address] [place], [place] [address]Dr. Lori Sutton IG # 0.01 10e3/ul Normal 0.00-0.03 [facility] Comment on above: Performed By: #### C BC ####[facility] [address] [place], [place] [address]Dr. Estephaniaurbano Sutton IG % 0.2 % Normal 0.0-0.5 [facility] Comment on above: Performed By: #### C BC ####[facility] [address] [place], [place] [address]Dr. Lori Sutton LYMPH # 1.3 103/ul Normal 1.2-3.8 [facility] Comment on above: Performed By: #### C BC ####[facility] [address] [place], [place] [address]Dr. Estephaniaurbano Sutton Lymphocytes/100 WBC (Bld) 22.9 % Normal 20.5-60.0 [facility] Comment on above: Performed By: #### C BC ####[facility] [address] [place], [place] [address]Dr. Lori Sutton MANUAL DIFF REQ NO Normal [facility] Comment on above: Performed By: #### C BC ####[facility] [address] [place], [place] [address]Dr. Lori Sutton MCH (RBC) [Entitic mass] 29.7 pg Normal 26.7-34.0 [facility] Comment on above: Performed By: #### C BC ####[facility] [address] [place] [address]Dr. Lori Sutton MCHC (RBC) [Mass/Vol] 31.9 g/dL Normal 29.9-35.2 [facility] Comment on above: Performed By: #### C BC ####[facility] Er[address]fr[address] [place], [place] [address]Dr. Lori Sutton MCV (RBC) [Entitic vol] 93.1 fL Normal 81.0-99.0 [facility] Comment on above: Performed By: #### C BC ####[facility] Sgrdmadn[address] [place], [place] [address]Dr. Lori Sutton MONO # 0.3 103/ul Normal 0.3-0.8 [facility] Comment on above: Performed By: #### C BC ####[facility] Yitpiwsxye[address] [place], [place] [address]Dr. Lori Herman Monocytes/100 WBC (Bld) 4.7 % Normal 1.7-12.0 [facility] Comment on above: Performed By: #### C BC ####[facility] Iiloleorec[address] [place], [place] [address]Dr. Lori Sutton NEUT # 3.9 103/ul Normal 1.4-6.5 [facility] Comment on above: Performed By: #### C BC ####[facility] Wcjyhciumh[address] [place], [place] [address]Dr. Lori Herman Neutrophils/100 WBC (Bld) 67.3 % Normal 43.0-75.0 [facility] Comment on above: Performed By: #### C BC ####[facility] Kplfifsort[address] [place], [place] [address]Dr. Lori Sutton Platelet mean volume (Bld) [Entitic vol] 10.5 fL Normal 9.5-13.5 [facility] Comment on above: Performed By: #### C BC ####[facility] [address] [place], [place] [address]Fr. Lori Sutton PLT 211 103/ul Normal 150-450 [facility] Comment on above: Performed By: #### C BC ####[facility] Lrbsvjozbf54[address] [place], [place] [address]Un. Lori Sutton RBC 4.95 106/ul Normal 4.20-5.40 [facility] Comment on above: Performed By: #### C BC ####[facility] [address]un[address] [place], [place] [address]Un. Lori Sutton WBC 5.7 103/ul Normal 4.0-11.0 [facility] Comment on above: Performed By: #### C BC ####[facility] U[address]affz750[address] [place], [place] [address]Uz. Lori Sutton D-DIMERon 01-03-2023 D-DIMER 0.26 mg/L FEU Normal <=0.59 [facility] Comment on above: Performed By: #### D DIM ####[facility] [address]fak[address] [place], [place] [address]Yp. Lori Sutton D-DIMER COMMENTS SEE BELOW Normal [facility] Comment on above: Result Comment: Incr [...] generalized hospitalization. Performed By: #### D DIM ####[facility] Kzdtfdjsxz5[address] [place], [place] [address]Dn. Lori Sutton Office Visit (Cardiology)on 01-03-2023 Follow-up [...] Lead; Status:Active - Perform Order,Retrospective Authorization; Requested for:[id number]; SocHx: Never a smoker Tobacco Use Screening; [...] atrial fibrillation for which she started seeing [facility] since 2020 after she was hospitalized in [facility] for bradycardia. Adjustment of her medical [...] therapy. Patient is being evaluated recently at [facility] for ablation therapy for atrial [...] had a dual-chamber pacemaker [facility] MRI implanted in June 29, 2021. Clinical [...] possible applicat (more content not included)... Normal [facility] PROF 14(COMP METB)on 023 Albumin [Mass/Vol] 3.8 g/dL Normal 3.4-5.0 [facility] [place] Comment on above: Performed By: #### C LESTER, HSTROPN ####[facility] [address] [place] [address]Dr. Lori Sutton Albumin/Globulin [Mass ratio] 1.2 {ratio} Normal [facility] Comment on above: Performed By: #### C LESTER, HSTROPN ####[facility] Nxxjgilcrb[address] [place], [place] [address]Dr. Lori Sutton ALP [Catalytic activity/Vol] 101 U/L Normal 46-116 [facility] Comment on above: Performed By: #### C LESTER, HSTROPN ####[facility] Txww[address]pz[address] [place], [place] [address]Dr. Lori Sutton ALT [Catalytic activity/Vol] 25 U/L Normal 14-59 [facility] Comment on above: Performed By: #### C LESTER, HSTROPN ####[facility] Y[address] [place] [address]Dr. Lori Sutton Anion gap [Moles/Vol] 15.5 mmol/L Normal [facility] [place] Comment on above: Performed By: #### C LESTER, HSTROPN ####[facility] Cexpgyspuw[address] [place], [place] [address]Dr. Lori Sutton AST [Catalytic activity/Vol] 24 U/L Normal 15-37 [facility] Comment on above: Performed By: #### C LESTER, HSTROPN ####[facility] [address] [place] [address]Dr. Lori Sutton Bilirubin [Mass/Vol] 0.8 mg/dL Normal 0.2-1.0 [facility] Comment on above: Performed By: #### C LESTER, HSTROPN ####[facility] Ophdrkcrek[address] [place], [place] [address]Dr. Lori Sutton Calcium [Mass/Vol] 8.8 mg/dL Normal 8.5-10.1 [facility] [place] Comment on above: Performed By: #### C MP, HSTROPN ####[facility] X[address]jnmfp[address]85 [place] [address]Dr. Lori Sutton Chloride [Moles/Vol] 105 mmol/L Normal 98-107 [facility] Comment on above: Performed By: #### C MP, HSTROPN ####[facility] Whzszaqocn4487 [place] [address]Dr. Lori Sutton CO2 [Moles/Vol] 24.5 mmol/L Normal 21.0-32.0 [facility] Comment on above: Performed By: #### C MP, HSTROPN ####[facility] [address] [place], [place] [address]Dr. Lori Sutton Creatinine [Mass/Vol] 1.28 mg/dL Critically high 0.55-1.02 [facility] Comment on above: Performed By: #### C LESTER, HSTROPN ####[facility] [address]yfdq[address] [place], [place] [address]Dr. Lori Sutton EGFR-AF MALAYSIAN 49 mL/min/1.73m2 Critically low >=60 [facility] Comment on above: Performed By: #### C LESTER, HSTROPN ####[facility] [address] [place], [place] [address]Dr. Lori Sutton EGFR-NON AF MALAYSIAN 40 mL/min/1.73m2 Critically low >=60 [facility] Comment on above: Performed By: #### C MP, HSTROPN ####[facility] Ofxmhmtoev[address] [place], [place] [address]Dr. Lori Sutton Globulin (S) [Mass/Vol] 3.2 g/dL Normal [facility] Comment on above: Performed By: #### C MP, HSTROPN ####[facility] Qwm[address] [place], [place] [address]Dr. Lori Sutton Glucose [Mass/Vol] 230 mg/dL Critically high 74-106 [facility] Comment on above: Performed By: #### C MP, HSTROPN ####[facility] Em[address]xvms[address] [place] [address]Dr. Estephaniaurbano Sutton Potassium [Moles/Vol] 4.0 mmol/L Normal 3.5-5.1 [facility] Comment on above: Performed By: #### C LESTER, HSTROPN ####[facility] [address] [place] [address]Dr. Lori Sutton Protein [Mass/Vol] 7.0 g/dL Normal 6.4-8.2 [facility] Comment on above: Performed By: #### C MP, HSTROPN ####[facility] [address] [place] [address]Dr. Estephaniaurbano Sutton Sodium [Moles/Vol] 141 mmol/L Normal 136-145 [facility] Comment on above: Performed By: #### C MP, HSTROPN ####[facility] [address]xd[address]aj[address] [place] [address]Dr. Estephaniaurbano Sutton Urea nitrogen [Mass/Vol] 28.0 mg/dL Critically high 7.0-18.0 [facility] Comment on above: Performed By: #### C LESTER, HSTROPN ####[facility] [address]au[address] [place] [address]Dr. Estephaniaurbano Sutton Urea nitrogen/Creatinine [Mass ratio] 21.9 mg/mg Normal [facility] Comment on above: Performed By: #### C MP, HSTROPN ####[facility] [address] [place] [address]Dr. Lori Herman TROPONIN, HIGH SENSITIVITYon 01-03-2023 HSTROP 74.5 pg/mL Critically high 4.0-51.3 [facility] Comment on above: Result Comment: CUT- OFF POINTS HAVE BEEN ESTABLISHED BASED ON THE FOURTH UNIVERSAL DEFINITIONS OF MYOCARDIAL INFARCTION. THE UPPER REFERENCE LIMIT (URL) OF TROPONIN, DEFINED THE 99TH PERCENTILE OF cTnI DISTRIBUTION IN A REFERENCE POPULATION, HAS BEEN CONFIRMED THE DECISION THRESHOLD FOR TX DIAGNOSIS. Performed By: #### C MP, HSTROPN ####[facility] [address] [place] [address]Dr. Estephaniaurbano Sutton Tobacco Screening.on 023 Fall risk assessment a) No falls within the last year [facility] Work Phone: Tobacco use status [facility]PHS b) No [facility] Work Phone: Tobacco Screening. Yes [facility] Work Phone: AMYLASEon 01-02-2023 Amylase [Catalytic activity/Vol] 37 U/L Normal 25-115 [facility] Comment on above: Performed By: #### B JOI GODOY, CMP #### [facility] [address] [place] [address] [address] Lori Sutton BNPon 01-02-2023 Natriuretic peptide B (Bld) [Mass/Vol] 690.0 pg/mL Normal <=1,800.0 [facility] Comment on above: Performed By: #### B JOI GODOY, CMP ####[facility] [address] [place] [address]Dr. Lori Sutton CBC AUTO DIFFon 01-02-2023 BASO # 0.0 103/ul Normal 0.0-0.1 [facility] Comment on above: Performed By: #### C BC #### [facility] [address] [place] [address] [address] Lori Sutton Basophils/100 WBC (Bld) 0.6 % Normal 0.2-2.0 [facility] Comment on above: Performed By: #### C BC #### [facility] [address] [place] [address] [address] Lori Sutton EO # 0.2 103/ul Normal 0.0-0.7 [facility] Comment on above: Performed By: #### C BC #### [facility] [address] [place] [address] [address] Lori Sutton Eosinophils/100 WBC (Bld) 2.8 % Normal 0.9-7.0 [facility] Comment on above: Performed By: #### C BC #### [facility] [address] [place] [address] [address] Lori Sutton Erythrocyte distribution width (RBC) [Ratio] 13.8 % Normal 11.0-15.0 [facility] Comment on above: Performed By: #### C BC #### [facility] [address] [place] [address] [address] Lori Sutton Hematocrit (Bld) [Volume fraction] 46.3 % Normal 36.0-48.0 [facility] Comment on above: Performed By: #### C BC #### [facility] [address] [place] [address] Dr. Lori Sutton Hemoglobin (Bld) [Mass/Vol] 15.0 g/dL Normal 12.0-16.0 [facility] Comment on above: Performed By: #### C BC #### [facility] [address] [place] [address] Dr. Lori Sutton IG # 0.01 10e3/ul Normal 0.00-0.03 [facility] Comment on above: Performed By: #### C BC #### [facility] [address] [place] [address] Dr. Lori Sutton IG % 0.2 % Normal 0.0-0.5 [facility] Comment on above: Performed By: #### C BC #### [facility] [address] [place] [address] Dr. Lori Sutton LYMPH # 1.1 103/ul Critically low 1.2-3.8 [facility] Comment on above: Performed By: #### C BC #### [facility] [address] [place] [address] Dr. Lori Sutton Lymphocytes/100 WBC (Bld) 17.6 % Critically low 20.5-60.0 [facility] Comment on above: Performed By: #### C BC #### [facility] [address] [place] [address] Dr. Lori Sutton MANUAL DIFF REQ NO Normal [facility] Comment on above: Performed By: #### C BC #### [facility] [address] [place] [address] Dr. Lori Sutton MCH (RBC) [Entitic mass] 29.7 pg Normal 26.7-34.0 [facility] Comment on above: Performed By: #### C BC #### [facility] [address] [place] [address] [address] Lori Sutton MCHC (RBC) [Mass/Vol] 32.4 g/dL Normal 29.9-35.2 [facility] Comment on above: Performed By: #### C BC #### [facility] [address] [place] [address] [address] Lori Sutton MCV (RBC) [Entitic vol] 91.7 fL Normal 81.0-99.0 [facility] Comment on above: Performed By: #### C BC #### [facility] [address] [place] [address] Dr. Lori Sutton MONO # 0.4 103/ul Normal 0.3-0.8 [facility] Comment on above: Performed By: #### C BC #### [facility] [address] [place] [address] Dr. Lori Sutton Monocytes/100 WBC (Bld) 6.2 % Normal 1.7-12.0 [facility] Comment on above: Performed By: #### C BC #### [facility] [address] [place] [address] Dr. Lori Sutton NEUT # 4.6 103/ul Normal 1.4-6.5 [facility] Comment on above: Performed By: #### C BC #### [facility] [address] [place] [address] Dr. Lori Sutton Neutrophils/100 WBC (Bld) 72.6 % Normal 43.0-75.0 [facility] Comment on above: Performed By: #### C BC #### [facility] [address] [place] [address] Dr. Lori Sutton Platelet mean volume (Bld) [Entitic vol] 10.3 fL Normal 9.5-13.5 [facility] Comment on above: Performed By: #### C BC #### [facility] [address] [place] [address] Dr. Lori Sutton PLT 207 103/ul Normal 150-450 [facility] Comment on above: Performed By: #### C BC #### [facility] [address] [place] [address] [address] Lori Sutton RBC 5.05 106/ul Normal 4.20-5.40 [facility] Comment on above: Performed By: #### C BC #### [facility] [address] [place] [address] [address] Lori Sutton WBC 6.3 103/ul Normal 4.0-11.0 [facility] Comment on above: Performed By: #### C BC #### [facility] [address] [place] [address] [address] Lori Sutton PROF 14(COMP METB)on 023 Albumin [Mass/Vol] 3.9 g/dL Normal 3.4-5.0 [facility] [place] Comment on above: Performed By: #### B SECURITY SYSTEMS MANAGER, JOI, CMP ####[facility] [address] [place] [address]Dr. Lori Sutton Albumin/Globulin [Mass ratio] 1.2 {ratio} Normal [facility] Comment on above: Performed By: #### B SECURITY SYSTEMS MANAGER, JOI, CMP ####[facility] [address] [place] [address]Dr. Lori Sutton ALP [Catalytic activity/Vol] 98 U/L Normal 46-116 [facility] Comment on above: Performed By: #### B SECURITY SYSTEMS MANAGER, JOI, CMP ####[facility] F[address]ulifpcq[address] [place] [address]Dr. Lori Sutton ALT [Catalytic activity/Vol] 24 U/L Normal 14-59 [facility] Comment on above: Performed By: #### B SECURITY SYSTEMS MANAGER, JOI, CMP ####[facility] F[address]vnke[address] [place] [address]Dr. Lori Sutton Anion gap [Moles/Vol] 12.0 mmol/L Normal [facility] [place] Comment on above: Performed By: #### B SECURITY SYSTEMS MANAGER, JOI, CMP ####[facility] P[address]ccma[address] [place] [address]Dr. Lori Sutton AST [Catalytic activity/Vol] 25 U/L Normal 15-37 [facility] Comment on above: Performed By: #### B SECURITY SYSTEMS MANAGER, JOI, CMP ####[facility] [address]wvjyq[address] [place] [address]Dr. Lori Sutton Bilirubin [Mass/Vol] 0.8 mg/dL Normal 0.2-1.0 [facility] Comment on above: Performed By: #### B SECURITY SYSTEMS MANAGER, JOI, CMP ####[facility] [address]ubavc[address] [place] [address]Dr. Lori Sutton Calcium [Mass/Vol] 9.2 mg/dL Normal 8.5-10.1 [facility] [place] Comment on above: Performed By: #### B SECURITY SYSTEMS MANAGER, JOI, CMP ####[facility] [address]gswayxyuv[address] [place], [place] [address]Dr. Lori Sutton Chloride [Moles/Vol] 107 mmol/L Normal 98-107 [facility] Comment on above: Performed By: #### B SECURITY SYSTEMS MANAGER, JOI, CMP ####[facility] [address]fzsj[address] [place], [place] [address]Dr. Lori Sutton CO2 [Moles/Vol] 28.6 mmol/L Normal 21.0-32.0 [facility] Comment on above: Performed By: #### B SECURITY SYSTEMS MANAGER, JOI, CMP ####[facility] [address]xqupahl[address] [place], [place] [address]Dr. Lori Herman Creatinine [Mass/Vol] 1.08 mg/dL Critically high 0.55-1.02 [facility] Comment on above: Performed By: #### B SECURITY SYSTEMS MANAGER, JOI, CMP ####[facility] [address]cjwtnxz[address] [place], [place] [address]Dr. Lori Herman EGFR-AF MALAYSIAN 59 mL/min/1.73m2 Critically low >=60 [facility] Comment on above: Performed By: #### B SECURITY SYSTEMS MANAGER, JOI, CMP ####[facility] [address] [place], [place] [address]Dr. Lori Herman EGFR-NON AF MALAYSIAN 49 mL/min/1.73m2 Critically low >=60 [facility] Comment on above: Performed By: #### B SECURITY SYSTEMS MANAGER, JOI, CMP ####[facility] [address]krmpqn[address] [place], [place] [address]Dr. Lori Sutton Globulin (S) [Mass/Vol] 3.2 g/dL Normal [facility] Comment on above: Performed By: #### B SECURITY SYSTEMS MANAGER, JOI, CMP ####[facility] [address]ch[address] [place] [address]Dr. Lori Sutton Glucose [Mass/Vol] 103 mg/dL Normal 74-106 [facility] Comment on above: Performed By: #### B SECURITY SYSTEMS MANAGER, JOI, CMP ####[facility] [address]ipdetr[address] [place] [address]Dr. Lori Sutton Potassium [Moles/Vol] 4.6 mmol/L Normal 3.5-5.1 [facility] Comment on above: Performed By: #### B SECURITY SYSTEMS MANAGER, JOI, CMP ####[facility] [address]om[address]myw[address] [place] [address]Dr. Lori Sutton Protein [Mass/Vol] 7.1 g/dL Normal 6.4-8.2 [facility] Comment on above: Performed By: #### B SECURITY SYSTEMS MANAGER, JOI, CMP ####[facility] [address]ox[address]lu[address]cc35[address] [place] [address]Dr. Lori Sutton Sodium [Moles/Vol] 143 mmol/L Normal 136-145 [facility] Comment on above: Performed By: #### B SECURITY SYSTEMS MANAGER, JOI, CMP ####[facility] [address] [place] [address]Dr. Lori Sutton Urea nitrogen [Mass/Vol] 29.0 mg/dL Critically high 7.0-18.0 [facility] Comment on above: Performed By: #### B SECURITY SYSTEMS MANAGER, JOI, CMP ####[facility] [address]zzsvy[address] [place] [address]Dr. Lori Sutton Urea nitrogen/Creatinine [Mass ratio] 26.9 mg/mg Normal [facility] Comment on above: Performed By: #### B SECURITY SYSTEMS MANAGER, JOI, CMP ####[facility] S[address]rmfvhvh[address] [place], [place] [address]Dr. Lori Sutton XR CHEST 2 Von 01-02-2023 [...] Date: 2023-01-02 12:33 Normal [facility] Office Visit (Cardiology)on 12-25-2022 Follow-up [...] AF includes Amiodarone (d/c?d for concerns of correction side effects), tikosyn (prolonged OTc), sotalol and DCCV (09/2022). Symptoms of her AF include fatigue and BRAY. Pt follows with Dr Stover for management of her AF. Pt has previously been on Amio but was concerned about correction side effects. She was then put on [...] AV CONDUCTION @ 109 bpm Echo 08/2022 ([facility] ? [facility]): LVEF 40%, moderate anteroseptal hypokinesis [...] PM S (more content not included)... Normal [facility] Alkaline phosphatase [Enzyma tic activity/volume] in Serum or PlasmaOrdered By: Wilbur Watson on 11-27-2022 ALP [Catalytic activity/Vol] 67 U/L 34-104 [facility] Amylase [Enzymatic activity/ volume] in Serum or PlasmaOrdered By: Wilbur Watson on 11-27-2022 Amylase [Catalytic activity/Vol] 24 U/L 29-103 [facility] Bilirubin.direct [Mass/volum e] in Serum or PlasmaOrdered By: Wilbur Watson on 11-27-2022 Bilirubin.direct [Mass/Vol] 0.20 mg/dL 0.03-0.18 [facility] Bilirubin.total [Mass/volume ] in Serum or PlasmaOrdered By: Wilbur Watson on 11-27-2022 Bilirubin [Mass/Vol] 0.8 mg/dL 0.3-1.[address] [facility] Lipase [Enzymatic activity/v olume] in Serum or PlasmaOrdered By: Wilbur Watson on 11-27-2022 Lipase [Catalytic activity/Vol] 31.0 U/L 11.0-82.0 [facility] Serum or plasma non-glucuron idated bilirubin measurement (mass/volume)Ordered By: Wilbur Watson on 11-27-2022 Bilirubin.indirect [Mass/Vol] 0.6 mg/dL [facility] Basophils Auto (Bld) [#/Vol] Ordered By: Wilbur Watson on 11-20-2022 Basophils (Bld) [#/Vol] 0.1 10*3/uL 0.0-0.2 [facility] Basophils/100 WBC Auto (Bld) Ordered By: Wilbur Watson on 11-20-2022 Basophils/100 WBC (Bld) 0.9 % . [facility] Calcium [Mass/volume] in Ser um or PlasmaOrdered By: Wilbur Watson on 11-20-2022 Calcium [Mass/Vol] 9.5 mg/dL 8.6-10.3 [facility] Carbon dioxide, total [Moles /volume] in Serum or PlasmaOrdered By: Wilbur Watson on 11-20-2022 CO2 [Moles/Vol] 25.5 mmol/L 21.0-31.0 [facility] Chloride [Moles/volume] in S vaughn or PlasmaOrdered By: Wilbur Watson on 11-20-2022 Chloride [Moles/Vol] 107 mmol/L 98-[address] [facility] Creatinine [Mass/volume] in Serum or PlasmaOrdered By: Wilbur Watson on 11-20-2022 Creatinine [Mass/Vol] 1.08 mg/dL 0.60-1.20 [facility] Eosinophils Auto (Bld) [#/Vo l]Ordered By: Wilbur Watson on 11-20-2022 Eosinophils (Bld) [#/Vol] 0.3 10*3/uL 0.0-0.45 [facility] Eosinophils/100 WBC Auto (Bl d)Ordered By: Wilbur Watson on 11-20-2022 Eosinophils/100 WBC (Bld) 3.6 % . [facility] Erythrocyte distribution wid th Auto (RBC) [Ratio]Ordered By: Wilbur Watson on 11-20-2022 Erythrocyte distribution width (RBC) [Ratio] 13.9 % 11.9-15.3 [facility] Glucose [Mass/volume] in Ser um or PlasmaOrdered By: Wilbur Watson on 11-20-2022 Glucose [Mass/Vol] 91 mg/dL 70-100 [facility] Comment on above: ADA recommended refe rence rangeRandom Glucose Reference Range is dependent on time and content of last meal. Glucose of more than 200 mg/dL in a nonstressed, ambulatory subject supports the diagnosis of Diabetes Mellitus. Hematocrit Auto (Bld) [Volum e fraction]Ordered By: Wilbur Watson on 11-20-2022 Hematocrit (Bld) [Volume fraction] 46.1 % 34.0-46.4 [facility] Hemoglobin [Mass/volume] in BloodOrdered By: Wilbur Watson on 11-20-2022 Hemoglobin (Bld) [Mass/Vol] 15.2 g/dL 11.8-15.4 [facility] Leukocytes [#/volume] correc anne marie for nucleated erythrocytes in Blood by Automated counOrdered By: Wilbur Watson on 11-20-2022 WBC corrected for nucl RBC Auto (Bld) [#/Vol] 7.0 10*3/uL 3.8-11.6 [facility] Lymphocytes Auto (Bld) [#/Vo l]Ordered By: Wilbur Watson on 11-20-2022 Lymphocytes (Bld) [#/Vol] 1.6 10*3/uL 1.00-4.8 [facility] Lymphocytes/100 WBC Auto (Bl d)Ordered By: Wilbur Watson on 11-20-2022 Lymphocytes/100 WBC (Bld) 23.1 % . [facility] MCH Auto (RBC) [Entitic mass ]Ordered By: Wilbur Watson on 11-20-2022 MCH (RBC) [Entitic mass] 29.4 pg 24.7-34.3 [facility] MCHC Auto (RBC) [Mass/Vol]Or dered By: Wilbur Watson on 11-20-2022 MCHC (RBC) [Mass/Vol] 33.0 g/dL 32.0-35.0 [facility] MCV Auto (RBC) [Entitic vol] Ordered By: Wilbur Watson on 11-20-2022 MCV (RBC) [Entitic vol] 88.9 fL 80-100 [facility] Monocytes Auto (Bld) [#/Vol] Ordered By: Wilbur Watson on 11-20-2022 Monocytes (Bld) [#/Vol] 0.5 10*3/uL 0.0-0.8 [facility] Monocytes/100 WBC Auto (Bld) Ordered By: Wilbur Watson on 11-20-2022 Monocytes/100 WBC (Bld) 7.4 % . [facility] Neutrophils Auto (Bld) [#/Vo l]Ordered By: Wilbur Watson on 11-20-2022 Neutrophils (Bld) [#/Vol] 4.6 10*3/uL 1.8-7.7 [facility] Neutrophils/100 WBC Auto (Bl d)Ordered By: Wilbur Watson on 11-20-2022 Neutrophils/100 WBC (Bld) 65.0 % . [facility] No Panel InformationOrdered By: Wilbur Watson on 11-20-2022 Estimated GFR (CKD-EPI) 51.927 mL/Min [facility] Creatinine Clearance (Chem N/A [facility] Nucleated erythrocytes [Pres ence] in Blood by Automated countOrdered By: Wilbur Watson on 11-20-2022 Nucleated RBC Auto Ql (Bld) 0.1 /100{WBC} 0-0.5 [facility] Platelet mean volume Auto (B ld) [Entitic vol]Ordered By: Wilbur Watson on 11-20-2022 Platelet mean volume (Bld) [Entitic vol] 9.1 fL 6.3-10.7 [facility] Platelets Auto (Bld) [#/Vol] Ordered By: Wilbur Watson on 11-20-2022 Platelets (Bld) [#/Vol] 220 10*3/uL 150-450 [facility] Potassium [Moles/volume] in Serum or PlasmaOrdered By: Wilbur Watson on 11-20-2022 Potassium [Moles/Vol] 4.5 mmol/L 3.5-5.1 [facility] RBC Auto (Bld) [#/Vol]Ordere d By: Wilbur Watson on 11-20-2022 RBC (Bld) [#/Vol] 5.18 10*6/uL 3.60-5.00 [facility] Serum or plasma anion gap de terminationOrdered By: Wilbur Watson on 11-20-2022 Anion gap [Moles/Vol] 12.0 mmol/L 6.0-15.0 [facility] Sodium [Moles/volume] in Ser um or PlasmaOrdered By: Wilbur Watson on 11-20-2022 Sodium [Moles/Vol] 140 mmol/L 136-145 [facility] Urea nitrogen [Mass/volume] in Serum or PlasmaOrdered By: Wilbur Watson on 11-20-2022 Urea nitrogen [Mass/Vol] 31 mg/dL 7-25 [facility] WBC Auto (Bld) [#/Vol]Ordere d By: Wilbur Watson on 11-20-2022 WBC (Bld) [#/Vol] 7.0 10*3/uL 3.8-11.6 [facility] MG MAMM SCREEN 3D MARYBETH CADon 10-16-2022 MG MAMM SCREEN 3D MARYBETH CAD Patient: AUSTIN GOLDEN Exam Date: 10/16/2022 : 1940 Gender:F Ordering : DR JAZMIN العلي D.O. Admission #: [id number] Family : Order #: [id number] CLICK HERE TO VIEW EXAM RADIOLOGY REPORT [...] at age 45. LOCATION: [facility] BREAST COMPOSITION: Extremely dense, which [...] 10/16/2022 at 14:09 Normal [facility] Office Visit (Cardiology)on 10-13-2022 Follow-up [...] Weight Tips; Status:Complete - Retrospective Authorization; Done: [id number] Some eating tips that can help you lose weight.; Status:Complete - Retrospective Authorization; Done: [id number] Gallstones General Surgery Referral Evaluation and Treatment Evaluate AND Treat Status: Hold For - Scheduling,Retrospective Authorization Requested for: [id number] Persistent atrial fibrillation Renew: Sotalol HCl - 80 MG Oral Tablet (Betapace); TAKE 1 TABLET BY MOUTH TWICE DAILY IO EKG Electrocardiogram- 12 Lead; Status:Complete; Done: [id number] SocHx: Never a smoker Tobacco Use Screening; Status:Complete; Done: [id number] Patient Instructions Please bring all medicines, vitamins, [...] Complaint AUSTIN GOLDEN is being seen for [facility]. History of Present Illness Patient [...] Medication fentany (more content not included)... Normal [employer] Tobacco Screening.on 023 Fall risk assessment a) No falls within the last year [facility] [employer] 250 DO Work Phone: Tobacco use status CP b) No [facility] [employer] 250 DO Work Phone: Tobacco Screening. Yes [facility] 250 DO Work Phone: Tobacco Screening.on 023 Fall risk assessment a) No falls within the last year [facility] [employer] [facility] 250 DO Work Phone: Tobacco use status CPHS b) No [facility] [employer] [facility] 250 DO Work Phone: Basophils Auto (Bld) [#/Vol] Ordered By: Katie Dukes on 09-21-2022 Basophils (Bld) [#/Vol] 0.0 10*3/uL 0.0-0.2 [facility] Basophils/100 WBC Auto (Bld) Ordered By: Katie Dukes on 09-21-2022 Basophils/100 WBC (Bld) 0.7 % . [facility] Creatine kinase [Enzymatic a ctivity/volume] in Serum or PlasmaOrdered By: Debbie Mac on 09-21-2022 CK [Catalytic activity/Vol] 76 U/L 22-269 [facility] Creatinine and Glomerular fi ltration rate.predicted panel (S/P/Bld)Ordered By: Katie Dkues on 09-21-2022 Creatinine [Mass/Vol] 1.08 mg/dL 0.44-1.03 [facility] Eosinophils Auto (Bld) [#/Vo l]Ordered By: Katie Dukes on 09-21-2022 Eosinophils (Bld) [#/Vol] 0.3 10*3/uL 0.0-0.45 [facility] Eosinophils/100 WBC Auto (Bl d)Ordered By: Katie Dukes on 09-21-2022 Eosinophils/100 WBC (Bld) 4.6 % . [facility] Erythrocyte distribution wid th Auto (RBC) [Ratio]Ordered By: Katie Dukes on 09-21-2022 Erythrocyte distribution width (RBC) [Ratio] 13.5 % 11.9-15.3 [facility] Estimated glomerular filtrat ion rate (GFR) non- AmericanOrdered By: Katie Dukes on 09-21-2022 GFR/1.73 sq M.predicted among non-blacks MDRD (S/P/Bld) [Vol rate/Area] 49 mL/Min [facility] Hematocrit Auto (Bld) [Volum e fraction]Ordered By: Katie Dukes on 09-21-2022 Hematocrit (Bld) [Volume fraction] 39.6 % 34.0-46.4 [facility] Hemoglobin [Mass/volume] in BloodOrdered By: Katie Dukes on 09-21-2022 Hemoglobin (Bld) [Mass/Vol] 13.0 g/dL 11.8-15.4 [facility] Laboratory - Chemistry and C hemistry - challengeOrdered By: Debbie Mac on 09-21-2022 Natriuretic peptide B (Bld) [Mass/Vol] 203.0 pg/mL 5-100 [facility] - Chemistry and C hemistry - challengeOrdered By: Katie Dukes on 09-21-2022 Magnesium [Mass/Vol] 1.8 mg/dL 1.6-2.[address] [facility] Leukocytes [#/volume] correc anne marie for nucleated erythrocytes in Blood by Automated counOrdered By: Katie Dukes on 09-21-2022 WBC corrected for nucl RBC Auto (Bld) [#/Vol] 5.7 10*3/uL 3.8-11.6 [facility] Lymphocytes Auto (Bld) [#/Vo l]Ordered By: Katie Dukes on 09-21-2022 Lymphocytes (Bld) [#/Vol] 1.1 10*3/uL 1.00-4.8 [facility] Lymphocytes/100 WBC Auto (Bl d)Ordered By: Katie Dukes on 09-21-2022 Lymphocytes/100 WBC (Bld) 18.9 % . [facility] MCH Auto (RBC) [Entitic mass ]Ordered By: Katie Dukes on 09-21-2022 MCH (RBC) [Entitic mass] 29.6 pg 24.7-34.3 [facility] MCHC Auto (RBC) [Mass/Vol]Or dered By: Katie Dukes on 09-21-2022 MCHC (RBC) [Mass/Vol] 32.9 g/dL 32.0-35.0 [facility] MCV Auto (RBC) [Entitic vol] Ordered By: Katie Dukes on 09-21-2022 MCV (RBC) [Entitic vol] 89.8 fL 80-100 [facility] Monocytes Auto (Bld) [#/Vol] Ordered By: Katie Dukes on 09-21-2022 Monocytes (Bld) [#/Vol] 0.4 10*3/uL 0.0-0.8 [facility] Monocytes/100 WBC Auto (Bld) Ordered By: Katie Dukes on 09-21-2022 Monocytes/100 WBC (Bld) 7.6 % . [facility] Neutrophils Auto (Bld) [#/Vo l]Ordered By: Katie Dukes on 09-21-2022 Neutrophils (Bld) [#/Vol] 3.9 10*3/uL 1.8-7.7 [facility] Neutrophils/100 WBC Auto (Bl d)Ordered By: Katie Dukes on 09-21-2022 Neutrophils/100 WBC (Bld) 68.2 % . [facility] No Panel InformationOrdered By: Katie Dukes on 09-21-2022 Estimated GFR () 59 mL/Min [facility] Comment on above: GFR estimated refere nce range: According to KDOQI guidelines, <60 ml/min/1.73m2 is sufficient to diagnose a patient with chronic kidney disease. Pharmacy Creatinine Clearance (Chem 37.27 [facility] Nucleated erythrocytes [Pres ence] in Blood by Automated countOrdered By: Katie Dukes on 09-21-2022 Nucleated RBC Auto Ql (Bld) 0.0 /100{WBC} 0-0.5 [facility] Platelet mean volume Auto (B ld) [Entitic vol]Ordered By: Katie Dukes on 09-21-2022 Platelet mean volume (Bld) [Entitic vol] 9.5 fL 6.3-10.7 [facility] Platelets Auto (Bld) [#/Vol] Ordered By: Katie Dukes on 09-21-2022 Platelets (Bld) [#/Vol] 173 10*3/uL 150-450 [facility] RBC Auto (Bld) [#/Vol]Ordere d By: Katie Dukes on 09-21-2022 RBC (Bld) [#/Vol] 4.41 10*6/uL 3.60-5.00 [facility] Serum or plasma anion gap de terminationOrdered By: Katie Dukes on 09-21-2022 Anion gap [Moles/Vol] 11.0 mmol/L 6.0-15.0 [facility] Serum or plasma calcium mitch urement (mass/volume)Ordered By: Katie Dukes on 09-21-2022 Calcium [Mass/Vol] 8.6 mg/dL 8.2-10.2 [facility] Serum or plasma chloride carlitos surement (moles/volume)Ordered By: Katie Dukes on 09-21-2022 Chloride [Moles/Vol] 107 mmol/L 95-[address] [facility] Serum or plasma creatine kin ase MB (CKMB)/total creatine kinase (CK) ratio by calculaOrdered By: Debbie Mac on 09-21-2022 CK.MB Calc [Catalytic fraction] 2.5 % 0.00-2.50 [facility] Serum or plasma creatine kin ase MB measurement (mass/volume)Ordered By: Debbie Mac on 09-21-2022 CK.MB [Mass/Vol] 1.9 ng/mL 0.6-6.3 [facility] Serum or plasma glucose mitch urement (mass/volume)Ordered By: Katie Dukes on 09-21-2022 Glucose [Mass/Vol] 94 mg/dL 70-100 [facility] Comment on above: ADA recommended refe rence rangeRandom Glucose Reference Range is dependent on time and content of last meal. Glucose of more than 200 mg/dL in a nonstressed, ambulatory subject supports the diagnosis of Diabetes Mellitus. Serum or plasma potassium me asurement (moles/volume)Ordered By: Katie Dukes on 09-21-2022 Potassium [Moles/Vol] 3.9 mmol/L 3.5-5.1 [facility] Serum or plasma sodium measu rement (moles/volume)Ordered By: Katie Dukes on 09-21-2022 Sodium [Moles/Vol] 137 mmol/L 136-146 [facility] Serum or plasma total carbon dioxide measurement (moles/volume)Ordered By: Katie Dukes on 09-21-2022 CO2 [Moles/Vol] 22.9 mmol/L 22.0-30.0 [facility] Serum or plasma urea nitroge n measurement (mass/volume)Ordered By: Katie Dukes on 09-21-2022 Urea nitrogen [Mass/Vol] 18 mg/dL 9-23 [facility] Troponin I.cardiac [Mass/vol ume] in Serum or Plasma by High sensitivity methodOrdered By: Debbie Mac on 09-21-2022 Troponin I.cardiac High sensitivity method [Mass/Vol] 9 pg/mL 0-15 [facility] WBC Auto (Bld) [#/Vol]Ordere d By: Katie Dukes on 09-21-2022 WBC (Bld) [#/Vol] 5.7 10*3/uL 3.8-11.6 [facility] Glucose Glucometer (BldC) [M ass/Vol]Ordered By: Katie Dukes on 09-19-2022 Glucose [Mass/Vol] 93 mg/dL [facility] Comment on above: Random Glucose Refer ence Range is dependent on time and content of last meal. Glucose of more than 200 mg/dL in a nonstressed, ambulatory subject supports the diagnosis of Diabetes Mellitus. No Panel InformationOrdered By: Katie Dukes on 09-19-2022 Bedside Glucose Comment Glu2: cleaned meter [facility] Activated partial thrombopla stin time (aPTT) in platelet poor plasma by coagulation aOrdered By: Indy Rolon on 09-17-2022 aPTT Coag (PPP) [Time] 40.4 s 25.1-36.5 [facility] Automated erythrocytes count in urine sediment (number/area)Ordered By: Indy Rolon on 09-17-2022 RBC Auto (Urine sed) [#/Area] 10-19 [HPF] 0-4 [facility] Automated leukocytes count i n urine sediment (number/area)Ordered By: Indy Rolon on 09-17-2022 WBC Auto (Urine sed) [#/Area] 20-49 [HPF] 0-4 [facility] Automated urine hyaline cast s count (number/volume)Ordered By: Indy Rolon on 09-17-2022 Hyaline casts Auto (U) [#/Vol] 3-4 [LPF] 0-1 [facility] Basophils Auto (Bld) [#/Vol] Ordered By: Indy Rolon on 09-17-2022 Basophils (Bld) [#/Vol] 0.0 10*3/uL 0.0-0.2 [facility] Basophils/100 WBC Auto (Bld) Ordered By: Indy Rolon on 09-17-2022 Basophils/100 WBC (Bld) 0.6 % . [facility] Bilirubin Test strip Ql (U)O rdered By: Indy Rolon on 09-17-2022 Bilirubin Ql (U) Negative Negative [facility] Body fluid albumin measureme nt (mass/volume)Ordered By: Indy Rolon on 09-17-2022 Albumin (Body fld) [Mass/Vol] 4.1 g/dL 3.2-5.5 [facility] Casts typing in urine sedime nt by light microscopyOrdered By: Indy Rolon on 09-17-2022 Casts LM Nom (Urine sed) None seen [LPF] None Seen [facility] Color Auto (U)Ordered By: Jordan Rolon on 09-17-2022 Color (U) Dark yellow Yellow [facility] Creatinine and Glomerular fi ltration rate.predicted panel (S/P/Bld)Ordered By: Indy Rolon on 09-17-2022 Creatinine [Mass/Vol] 1.23 mg/dL 0.44-1.03 [facility] Eosinophils Auto (Bld) [#/Vo l]Ordered By: Indy Rolon on 09-17-2022 Eosinophils (Bld) [#/Vol] 0.3 10*3/uL 0.0-0.45 [facility] Eosinophils/100 WBC Auto (Bl d)Ordered By: Indy Rolon on 09-17-2022 Eosinophils/100 WBC (Bld) 3.5 % . [facility] Erythrocyte distribution wid th Auto (RBC) [Ratio]Ordered By: Indy Rolon on 09-17-2022 Erythrocyte distribution width (RBC) [Ratio] 13.5 % 11.9-15.3 [facility] Estimated glomerular filtrat ion rate (GFR) non- AmericanOrdered By: Indy Rolon on 09-17-2022 GFR/1.73 sq M.predicted among non-blacks MDRD (S/P/Bld) [Vol rate/Area] 42 mL/Min [facility] Globulin Calc (S) [Mass/Vol] Ordered By: Indy Rolon on 09-17-2022 Globulin (S) [Mass/Vol] 2.2 g/dL [facility] Hematocrit Auto (Bld) [Volum e fraction]Ordered By: Indy Rolon on 09-17-2022 Hematocrit (Bld) [Volume fraction] 43.5 % 34.0-46.4 [facility] Hemoglobin [Mass/volume] in BloodOrdered By: nIdy Rolon on 09-17-2022 Hemoglobin (Bld) [Mass/Vol] 14.4 g/dL 11.8-15.4 [facility] Ketones Auto test strip (U) [Mass/Vol]Ordered By: Indy Rolon on 09-17-2022 Ketones (U) [Mass/Vol] Trace Negative Fi [facility] Laboratory - Chemistry and C hemistry - challengeOrdered By: Indy Rolon on 09-17-2022 Magnesium [Mass/Vol] 2.1 mg/dL 1.6-2.[address] [facility] Natriuretic peptide B (Bld) [Mass/Vol] 292.0 pg/mL 5-100 [facility] Laboratory - CoagulationOrde red By: Indy Rolon on 09-17-2022 PT Coag (PPP) [Time] 23.4 s 9.0-12.[address] [facility] Leukocytes [#/volume] correc anne marie for nucleated erythrocytes in Blood by Automated counOrdered By: Indy Rolon on 09-17-2022 WBC corrected for nucl RBC Auto (Bld) [#/Vol] 8.0 10*3/uL 3.8-11.6 [facility] Lymphocytes Auto (Bld) [#/Vo l]Ordered By: Indy Rolon on 09-17-2022 Lymphocytes (Bld) [#/Vol] 1.2 10*3/uL 1.00-4.8 [facility] Lymphocytes/100 WBC Auto (Bl d)Ordered By: Indy Rolon on 09-17-2022 Lymphocytes/100 WBC (Bld) 15.2 % . [facility] MCH Auto (RBC) [Entitic mass ]Ordered By: Indy Rolon on 09-17-2022 MCH (RBC) [Entitic mass] 30.1 pg 24.7-34.3 [facility] MCHC Auto (RBC) [Mass/Vol]Or dered By: Indy Rolon on 09-17-2022 MCHC (RBC) [Mass/Vol] 33.2 g/dL 32.0-35.0 [facility] MCV Auto (RBC) [Entitic vol] Ordered By: Indy Rolon on 09-17-2022 MCV (RBC) [Entitic vol] 90.6 fL 80-100 [facility] Monocyte distribution width [Entitic volume] in Blood by AutomatedOrdered By: Indy Rolon on 09-17-2022 Monocyte distribution width Auto (Bld) [Entitic vol] 19.67 % 0.00-20.00 [facility] Monocytes Auto (Bld) [#/Vol] Ordered By: Indy Rolon on 09-17-2022 Monocytes (Bld) [#/Vol] 0.6 10*3/uL 0.0-0.8 [facility] Monocytes/100 WBC Auto (Bld) Ordered By: Indy Rolon on 09-17-2022 Monocytes/100 WBC (Bld) 7.1 % . [facility] Neutrophils Auto (Bld) [#/Vo l]Ordered By: Indy Rolon on 09-17-2022 Neutrophils (Bld) [#/Vol] 5.9 10*3/uL 1.8-7.7 [facility] Neutrophils/100 WBC Auto (Bl d)Ordered By: Indy Rolon on 09-17-2022 Neutrophils/100 WBC (Bld) 73.6 % . [facility] Nitrite Test strip Ql (U)Ord ered By: Indy Rolon on 09-17-2022 Nitrite Ql (U) Negative Negative [facility] No Panel InformationOrdered By: Indy Rolon on 09-17-2022 Estimated GFR () 51 mL/Min [facility] Comment on above: GFR estimated refere nce range: According to KDOQI guidelines, <60 ml/min/1.73m2 is sufficient to diagnose a patient with chronic kidney disease. Pharmacy Creatinine Clearance (Chem N/A [facility] Nucleated erythrocytes [Pres ence] in Blood by Automated countOrdered By: Indy Rolon on 09-17-2022 Nucleated RBC Auto Ql (Bld) 0.3 /100{WBC} 0-0.5 [facility] Platelet mean volume Auto (B ld) [Entitic vol]Ordered By: Indy Rolon on 09-17-2022 Platelet mean volume (Bld) [Entitic vol] 9.4 fL 6.3-10.7 [facility] Platelet poor plasma interna tional normalized ratio (INR) by coagulation assay (relatOrdered By: Indy Rolon on 09-17-2022 INR Coag (PPP) [Relative time] 2.0 {INR} [facility] Comment on above: INR Therapeutic [...] 09-17-2022 Platelets (Bld) [#/Vol] 203 10*3/uL 150-450 [facility] Protein Auto test strip (U) [Mass/Vol]Ordered By: Indy Rolon on 09-17-2022 Protein (U) [Mass/Vol] Trace mg/dL Negative [facility] Protein [Mass/volume] in Ser um or PlasmaOrdered By: Indy Rolon on 09-17-2022 Protein [Mass/Vol] 6.3 g/dL 6.1-7.9 [facility] RBC Auto (Bld) [#/Vol]Ordere d By: Indy Rolon on 09-17-2022 RBC (Bld) [#/Vol] 4.80 10*6/uL 3.60-5.00 [facility] Serum or plasma alanine mahmood otransferase measurement without P-5'-P (enzymatic activiOrdered By: Indy Rolon on 09-17-2022 ALT No additional P-5'-P [Catalytic activity/Vol] 20 U/L 10-60 [facility] Serum or plasma albumin/glob ulin mass ratioOrdered By: Indy Rolon on 09-17-2022 Albumin/Globulin [Mass ratio] 1.9 {ratio} [facility] Serum or plasma alkaline mia sphatase measurement (enzymatic activity/volume)Ordered By: Indy Rolon on 09-17-2022 ALP [Catalytic activity/Vol] 79 U/L 32-92 [facility] Serum or plasma anion gap de terminationOrdered By: Indy Rolon on 09-17-2022 Anion gap [Moles/Vol] 14.2 mmol/L 6.0-15.0 [facility] Serum or plasma aspartate am inotransferase measurement (enzymatic activity/volume)Ordered By: Indy Rolon on 09-17-2022 AST [Catalytic activity/Vol] 28 U/L 10-42 [facility] Serum or plasma calcium mitch urement (mass/volume)Ordered By: Indy Rolon on 09-17-2022 Calcium [Mass/Vol] 9.4 mg/dL 8.2-10.2 [facility] Serum or plasma chloride carlitos surement (moles/volume)Ordered By: Indy Rolon on 09-17-2022 Chloride [Moles/Vol] 103 mmol/L 95-[address] [facility] Serum or plasma glucose mitch urement (mass/volume)Ordered By: Indy Rolon on 09-17-2022 Glucose [Mass/Vol] 94 mg/dL 70-100 [facility] Comment on above: ADA recommended refe rence rangeRandom Glucose Reference Range is dependent on time and content of last meal. Glucose of more than 200 mg/dL in a nonstressed, ambulatory subject supports the diagnosis of Diabetes Mellitus. Serum or plasma potassium me asurement (moles/volume)Ordered By: Indy Rolon on 09-17-2022 Potassium [Moles/Vol] 4.7 mmol/L 3.5-5.1 [facility] Serum or plasma sodium measu rement (moles/volume)Ordered By: Indy Rolon on 09-17-2022 Sodium [Moles/Vol] 138 mmol/L 136-146 [facility] Serum or plasma total biliru bin measurement (mass/volume)Ordered By: Indy oRlon on 09-17-2022 Bilirubin [Mass/Vol] 1.1 mg/dL 0.3-1.[address] [facility] Serum or plasma total carbon dioxide measurement (moles/volume)Ordered By: Indy Rolon on 09-17-2022 CO2 [Moles/Vol] 25.5 mmol/L 22.0-30.0 [facility] Serum or plasma urea nitroge n measurement (mass/volume)Ordered By: Indy Rolon on 09-17-2022 Urea nitrogen [Mass/Vol] 24 mg/dL 9-23 [facility] Specific gravity Auto test s trip (U) [Rel density]Ordered By: Indy Rolon on 09-17-2022 Specific gravity (U) [Rel density] 1.024 1.001-1.03 0 [facility] Squamous epithelial cells de tection in urine sediment by light microscopyOrdered By: Indy Rolon on 09-17-2022 Epithelial cells.squamous LM Ql (Urine sed) 10-19 [HPF] 0-2 [facility] Troponin I.cardiac [Mass/vol ume] in Serum or Plasma by High sensitivity methodOrdered By: Indy Rolon on 09-17-2022 Troponin I.cardiac High sensitivity method [Mass/Vol] 8 pg/mL 0-15 [facility] Urine bacteria detection by automated methodOrdered By: Indy Rolon on 09-17-2022 Bacteria Auto Ql (U) 3+ None Seen [facility] Urine clarity by refractomet ry automatedOrdered By: Indy Rolon on 09-17-2022 Clarity Refractometry automated (U) Cloudy Clear [facility] Urine culture routineOrdered By: Indy Rolon on 09-17-2022 Bacteria identified Cx Nom (U) Escherichia coli [facility] Bacteria identified Cx Nom (U) Escherichia coli [facility] Urine glucose measurement by automated test strip (mass/volume)Ordered By: Indy Rolon on 09-17-2022 Glucose Auto test strip (U) [Mass/Vol] Normal mg/dL Normal [facility] Urine hemoglobin detection b y automated test stripOrdered By: Indy Rolon on 09-17-2022 Hemoglobin Auto test strip Ql (U) Trace Negative [facility] Urine leukocyte esterase det ection by automated test stripOrdered By: Indy Rolon on 09-17-2022 Leukocyte esterase Auto test strip Ql (U) 3+ Negative [facility] Urobilinogen Auto test strip (U) [Mass/Vol]Ordered By: Inyd Rolon on 09-17-2022 Urobilinogen (U) [Mass/Vol] Normal mg/dL Normal [facility] WBC Auto (Bld) [#/Vol]Ordere d By: Indy Rolon on 09-17-2022 WBC (Bld) [#/Vol] 8.0 10*3/uL 3.8-11.6 [facility] Yeast detection in urine sed iment by light microscopyOrdered By: Indy Rolon on 09-17-2022 Yeast LM Ql (Urine sed) Rare [HPF] None Seen [facility] pH Auto test strip (U)Ordere d By: Indy Rolon on 09-17-2022 pH (U) 5.5 [pH] 5.0-9.0 [facility] Basophils Auto (Bld) [#/Vol] Ordered By: Jay Ceja on 09-05-2022 Basophils (Bld) [#/Vol] 0.0 10*3/uL 0.0-0.2 [facility] Basophils/100 WBC Auto (Bld) Ordered By: Jay Ceja on 09-05-2022 Basophils/100 WBC (Bld) 0.9 % . [facility] Creatinine and Glomerular fi ltration rate.predicted panel (S/P/Bld)Ordered By: Jay Ceja on 09-05-2022 Creatinine [Mass/Vol] 1.57 mg/dL 0.44-1.03 [facility] Eosinophils Auto (Bld) [#/Vo l]Ordered By: Jay Ceja on 09-05-2022 Eosinophils (Bld) [#/Vol] 0.3 10*3/uL 0.0-0.45 [facility] Eosinophils/100 WBC Auto (Bl d)Ordered By: Jay Ceja on 09-05-2022 Eosinophils/100 WBC (Bld) 4.7 % . [facility] Erythrocyte distribution wid th Auto (RBC) [Ratio]Ordered By: Jay Ceja on 09-05-2022 Erythrocyte distribution width (RBC) [Ratio] 13.8 % 11.9-15.3 [facility] Estimated glomerular filtrat ion rate (GFR) non- AmericanOrdered By: Jay Ceja on 09-05-2022 GFR/1.73 sq M.predicted among non-blacks MDRD (S/P/Bld) [Vol rate/Area] 32 mL/Min [facility] Hematocrit Auto (Bld) [Volum e fraction]Ordered By: Jay Ceja on 09-05-2022 Hematocrit (Bld) [Volume fraction] 42.4 % 34.0-46.4 [facility] Hemoglobin [Mass/volume] in BloodOrdered By: Jay Ceja on 09-05-2022 Hemoglobin (Bld) [Mass/Vol] 14.0 g/dL 11.8-15.4 [facility] Leukocytes [#/volume] correc anne marie for nucleated erythrocytes in Blood by Automated counOrdered By: Jay Ceja on 09-05-2022 WBC corrected for nucl RBC Auto (Bld) [#/Vol] 5.6 10*3/uL 3.8-11.6 [facility] Lymphocytes Auto (Bld) [#/Vo l]Ordered By: Jay Ceja on 09-05-2022 Lymphocytes (Bld) [#/Vol] 1.4 10*3/uL 1.00-4.8 [facility] Lymphocytes/100 WBC Auto (Bl d)Ordered By: Jay Ceja on 09-05-2022 Lymphocytes/100 WBC (Bld) 25.6 % . [facility] MCH Auto (RBC) [Entitic mass ]Ordered By: Jay Ceja on 09-05-2022 MCH (RBC) [Entitic mass] 29.7 pg 24.7-34.3 [facility] MCHC Auto (RBC) [Mass/Vol]Or dered By: Jay Ceja on 09-05-2022 MCHC (RBC) [Mass/Vol] 32.9 g/dL 32.0-35.0 [facility] MCV Auto (RBC) [Entitic vol] Ordered By: Jay Ceja on 09-05-2022 MCV (RBC) [Entitic vol] 90.2 fL 80-100 [facility] Monocytes Auto (Bld) [#/Vol] Ordered By: Jay Ceja on 09-05-2022 Monocytes (Bld) [#/Vol] 0.5 10*3/uL 0.0-0.8 [facility] Monocytes/100 WBC Auto (Bld) Ordered By: Jay Ceja on 09-05-2022 Monocytes/100 WBC (Bld) 9.7 % . [facility] Neutrophils Auto (Bld) [#/Vo l]Ordered By: Jay Ceja on 09-05-2022 Neutrophils (Bld) [#/Vol] 3.3 10*3/uL 1.8-7.7 [facility] Neutrophils/100 WBC Auto (Bl d)Ordered By: Jay Ceja on 09-05-2022 Neutrophils/100 WBC (Bld) 59.1 % . [facility] No Panel InformationOrdered By: Jay Ceja on 09-05-2022 Estimated GFR () 38 mL/Min [facility] Comment on above: GFR estimated refere nce range: According to KDOQI guidelines, <60 ml/min/1.73m2 is sufficient to diagnose a patient with chronic kidney disease. Pharmacy Creatinine Clearance (Chem 24.80 [facility] Nucleated erythrocytes [Pres ence] in Blood by Automated countOrdered By: Jay Ceja on 09-05-2022 Nucleated RBC Auto Ql (Bld) 0.2 /100{WBC} 0-0.5 [facility] Platelet mean volume Auto (B ld) [Entitic vol]Ordered By: Jay Ceja on 09-05-2022 Platelet mean volume (Bld) [Entitic vol] 9.2 fL 6.3-10.7 [facility] Platelets Auto (Bld) [#/Vol] Ordered By: Jay Ceja on 09-05-2022 Platelets (Bld) [#/Vol] 190 10*3/uL 150-450 [facility] RBC Auto (Bld) [#/Vol]Ordere d By: Jay Ceja on 09-05-2022 RBC (Bld) [#/Vol] 4.70 10*6/uL 3.60-5.00 [facility] Serum or plasma anion gap de terminationOrdered By: Jay Ceja on 09-05-2022 Anion gap [Moles/Vol] 11.5 mmol/L 6.0-15.0 [facility] Serum or plasma calcium mitch urement (mass/volume)Ordered By: Jay Ceja on 09-05-2022 Calcium [Mass/Vol] 8.9 mg/dL 8.2-10.2 [facility] Serum or plasma chloride carlitos surement (moles/volume)Ordered By: Jay Ceja on 09-05-2022 Chloride [Moles/Vol] 105 mmol/L 95-[address] [facility] Serum or plasma glucose mitch urement (mass/volume)Ordered By: Jay Ceja on 09-05-2022 Glucose [Mass/Vol] 103 mg/dL 70-100 [facility] Comment on above: ADA recommended refe rence rangeRandom Glucose Reference Range is dependent on time and content of last meal. Glucose of more than 200 mg/dL in a nonstressed, ambulatory subject supports the diagnosis of Diabetes Mellitus. Serum or plasma potassium me asurement (moles/volume)Ordered By: Jay Ceja on 09-05-2022 Potassium [Moles/Vol] 4.0 mmol/L 3.5-5.1 [facility] Serum or plasma sodium measu rement (moles/volume)Ordered By: Jay Ceja on 09-05-2022 Sodium [Moles/Vol] 140 mmol/L 136-146 [facility] Serum or plasma total carbon dioxide measurement (moles/volume)Ordered By: Jay Ceja on 09-05-2022 CO2 [Moles/Vol] 27.5 mmol/L 22.0-30.0 [facility] Serum or plasma urea nitroge n measurement (mass/volume)Ordered By: Jay Ceja on 09-05-2022 Urea nitrogen [Mass/Vol] 29 mg/dL 9-23 [facility] WBC Auto (Bld) [#/Vol]Ordere d By: Jay Ceja on 09-05-2022 WBC (Bld) [#/Vol] 5.6 10*3/uL 3.8-11.6 [facility] Glucose mean value [Mass/vol ume] in Blood Estimated from glycated hemoglobinOrdered By: Jay Ceja on 09-02-2022 Average glucose Estimated from glycated hemoglobin (Bld) [Mass/Vol] 117 mg/dL [facility] Hemoglobin A1c percentageOrd ered By: Jay Ceja on 09-02-2022 HbA1c (Bld) [Mass fraction] 5.7 % 4.3-5.6 [facility] Comment on above: Increased risk for d iabetes: 5.7 - 6.4diabetes: >6.4glycemic control for adults with diabetes: <7.0 Laboratory - Chemistry and C hemistry - challengeOrdered By: Jay Ceja on 09-02-2022 Magnesium [Mass/Vol] 1.8 mg/dL 1.6-2.[address] [facility] Natriuretic peptide B (Bld) [Mass/Vol] 307.0 pg/mL 5-100 [facility] TSH DL <= 0.005 mIU/L QnOrde red By: Jay Ceja on 09-02-2022 TSH Qn 3.39 m[IU]/L 0.45-5.33 [facility] Troponin I.cardiac [Mass/vol ume] in Serum or Plasma by High sensitivity methodOrdered By: Jay Ceja on 09-02-2022 Troponin I.cardiac High sensitivity method [Mass/Vol] 6 pg/mL 0-15 [facility] Albumin [Mass/volume] in Ser um or PlasmaOrdered By: Luis Lennon on 09-01-2022 Albumin [Mass/Vol] 3.7 g/dL 3.2-5.5 [facility] Automated erythrocytes count in urine sediment (number/area)Ordered By: Luis Lennon on 09-01-2022 RBC Auto (Urine sed) [#/Area] 3-4 [HPF] 0-4 [facility] Automated leukocytes count i n urine sediment (number/area)Ordered By: Luis Lennon on 09-01-2022 WBC Auto (Urine sed) [#/Area] 5-9 [HPF] 0-4 [facility] Basophils Auto (Bld) [#/Vol] Ordered By: Luis Lennon on 09-01-2022 Basophils (Bld) [#/Vol] 0.1 10*3/uL 0.0-0.2 [facility] Basophils/100 WBC Auto (Bld) Ordered By: Luis Lennon on 09-01-2022 Basophils/100 WBC (Bld) 0.8 % . [facility] Bilirubin Test strip Ql (U)O rdered By: Luis Lennon on 09-01-2022 Bilirubin Ql (U) Negative Negative [facility] Color Auto (U)Ordered By: Robert Lennon on 09-01-2022 Color (U) Dark yellow Yellow [facility] Creatinine and Glomerular fi ltration rate.predicted panel (S/P/Bld)Ordered By: Luis Lennon on 09-01-2022 Creatinine [Mass/Vol] 1.14 mg/dL 0.44-1.03 [facility] Eosinophils Auto (Bld) [#/Vo l]Ordered By: Luis Lennon on 09-01-2022 Eosinophils (Bld) [#/Vol] 0.3 10*3/uL 0.0-0.45 [facility] Eosinophils/100 WBC Auto (Bl d)Ordered By: Luis Lennon on 09-01-2022 Eosinophils/100 WBC (Bld) 4.1 % . [facility] Erythrocyte distribution wid th Auto (RBC) [Ratio]Ordered By: Luis Lennon on 09-01-2022 Erythrocyte distribution width (RBC) [Ratio] 14.3 % 11.9-15.3 [facility] Estimated glomerular filtrat ion rate (GFR) non- AmericanOrdered By: Luis Lennon on 09-01-2022 GFR/1.73 sq M.predicted among non-blacks MDRD (S/P/Bld) [Vol rate/Area] 46 mL/Min [facility] Globulin Calc (S) [Mass/Vol] Ordered By: Luis Lennon on 09-01-2022 Globulin (S) [Mass/Vol] 2.2 g/dL [facility] Hematocrit Auto (Bld) [Volum e fraction]Ordered By: Luis Lennon on 09-01-2022 Hematocrit (Bld) [Volume fraction] 43.4 % 34.0-46.4 [facility] Hemoglobin [Mass/volume] in BloodOrdered By: Luis Lennon on 09-01-2022 Hemoglobin (Bld) [Mass/Vol] 13.9 g/dL 11.8-15.4 [facility] Ketones Auto test strip (U) [Mass/Vol]Ordered By: Luis Lennon on 09-01-2022 Ketones (U) [Mass/Vol] Trace Negative Fi [facility] Laboratory - Chemistry and C hemistry - challengeOrdered By: Luis Lennon on 09-01-2022 Natriuretic peptide B (Bld) [Mass/Vol] 445.0 pg/mL 5-100 [facility] Laboratory - UrinalysisOrder ed By: Luis Lennon on 09-01-2022 Hyaline casts LM Ql (Urine sed) 0-8 [LPF] 0-8 [facility] Leukocytes [#/volume] correc anne marie for nucleated erythrocytes in Blood by Automated counOrdered By: Luis Lennon on 09-01-2022 WBC corrected for nucl RBC Auto (Bld) [#/Vol] 8.1 10*3/uL 3.8-11.6 [facility] Lymphocytes Auto (Bld) [#/Vo l]Ordered By: Luis Lennon on 09-01-2022 Lymphocytes (Bld) [#/Vol] 1.1 10*3/uL 1.00-4.8 [facility] Lymphocytes/100 WBC Auto (Bl d)Ordered By: Luis Lennon on 09-01-2022 Lymphocytes/100 WBC (Bld) 13.9 % . [facility] MCH Auto (RBC) [Entitic mass ]Ordered By: Luis Lennon on 09-01-2022 MCH (RBC) [Entitic mass] 29.3 pg 24.7-34.3 [facility] MCHC Auto (RBC) [Mass/Vol]Or dered By: Luis Lennon on 09-01-2022 MCHC (RBC) [Mass/Vol] 32.0 g/dL 32.0-35.0 [facility] MCV Auto (RBC) [Entitic vol] Ordered By: Luis Lennon on 09-01-2022 MCV (RBC) [Entitic vol] 91.4 fL 80-100 [facility] Monocyte distribution width [Entitic volume] in Blood by AutomatedOrdered By: Luis Lennon on 09-01-2022 Monocyte distribution width Auto (Bld) [Entitic vol] 16.84 % 0.00-20.00 [facility] Monocytes Auto (Bld) [#/Vol] Ordered By: Luis Lennon on 09-01-2022 Monocytes (Bld) [#/Vol] 0.6 10*3/uL 0.0-0.8 [facility] Monocytes/100 WBC Auto (Bld) Ordered By: Luis Lennon on 09-01-2022 Monocytes/100 WBC (Bld) 7.5 % . [facility] Neutrophils Auto (Bld) [#/Vo l]Ordered By: Luis Lennon on 09-01-2022 Neutrophils (Bld) [#/Vol] 5.9 10*3/uL 1.8-7.7 [facility] Neutrophils/100 WBC Auto (Bl d)Ordered By: Luis Lennon on 09-01-2022 Neutrophils/100 WBC (Bld) 73.7 % . [facility] Nitrite Test strip Ql (U)Ord ered By: Luis Lennon on 09-01-2022 Nitrite Ql (U) Negative Negative [facility] No Panel InformationOrdered By: Luis Lennon on 09-01-2022 Estimated GFR () 56 mL/Min [facility] Comment on above: GFR estimated refere nce range: According to KDOQI guidelines, <60 ml/min/1.73m2 is sufficient to diagnose a patient with chronic kidney disease. Pharmacy Creatinine Clearance (Chem 35.69 [facility] Nucleated erythrocytes [Pres ence] in Blood by Automated countOrdered By: Luis Lennon on 09-01-2022 Nucleated RBC Auto Ql (Bld) 0.1 /100{WBC} 0-0.5 [facility] Platelet mean volume Auto (B ld) [Entitic vol]Ordered By: Luis Lennon on 09-01-2022 Platelet mean volume (Bld) [Entitic vol] 9.1 fL 6.3-10.7 [facility] Platelets Auto (Bld) [#/Vol] Ordered By: Luis Lennon on 09-01-2022 Platelets (Bld) [#/Vol] 208 10*3/uL 150-450 [facility] Protein Auto test strip (U) [Mass/Vol]Ordered By: Luis Lennon on 09-01-2022 Protein (U) [Mass/Vol] 30 mg/dL Negative Fi [facility] Protein [Mass/volume] in Ser um or PlasmaOrdered By: Luis Lennon on 09-01-2022 Protein [Mass/Vol] 5.9 g/dL 6.1-7.9 [facility] RBC Auto (Bld) [#/Vol]Ordere d By: Luis Lennon on 09-01-2022 RBC (Bld) [#/Vol] 4.74 10*6/uL 3.60-5.00 [facility] Serum or plasma alanine mahmood otransferase measurement without P-5'-P (enzymatic activiOrdered By: Luis Lennon on 09-01-2022 ALT No additional P-5'-P [Catalytic activity/Vol] 33 U/L 10-60 [facility] Serum or plasma albumin/glob ulin mass ratioOrdered By: Luis Lennon on 09-01-2022 Albumin/Globulin [Mass ratio] 1.7 {ratio} [facility] Serum or plasma alkaline mia sphatase measurement (enzymatic activity/volume)Ordered By: Luis Lennon on 09-01-2022 ALP [Catalytic activity/Vol] 70 U/L 32-92 [facility] Serum or plasma anion gap de terminationOrdered By: Luis Lennon on 09-01-2022 Anion gap [Moles/Vol] 9.3 mmol/L 6.0-15.0 [facility] Serum or plasma aspartate am inotransferase measurement (enzymatic activity/volume)Ordered By: Luis Lennon on 09-01-2022 AST [Catalytic activity/Vol] 33 U/L 10-42 [facility] Serum or plasma calcium mitch urement (mass/volume)Ordered By: Luis Lennon on 09-01-2022 Calcium [Mass/Vol] 9.0 mg/dL 8.2-10.2 [facility] Serum or plasma chloride carlitos surement (moles/volume)Ordered By: Luis Lennon on 09-01-2022 Chloride [Moles/Vol] 109 mmol/L 95-[address] [facility] Serum or plasma glucose mitch urement (mass/volume)Ordered By: Luis Lennon on 09-01-2022 Glucose [Mass/Vol] 95 mg/dL 70-100 [facility] Comment on above: ADA recommended refe rence rangeRandom Glucose Reference Range is dependent on time and content of last meal. Glucose of more than 200 mg/dL in a nonstressed, ambulatory subject supports the diagnosis of Diabetes Mellitus. Serum or plasma potassium me asurement (moles/volume)Ordered By: Luis Lennon on 09-01-2022 Potassium [Moles/Vol] 4.2 mmol/L 3.5-5.1 [facility] Serum or plasma sodium measu rement (moles/volume)Ordered By: Luis Lennon on 09-01-2022 Sodium [Moles/Vol] 138 mmol/L 136-146 [facility] Serum or plasma total biliru bin measurement (mass/volume)Ordered By: Luis Lennon on 09-01-2022 Bilirubin [Mass/Vol] 1.3 mg/dL 0.3-1.[address] [facility] Comment on above: Samples from patient s who have taken Naproxen have shown spurious elevation in Total Bilirubin levels. A metabolite of Naproxen, O-desmethylnaproxen, has been shown to interfere with the Ephraim method for measuring Total Bilirubin. Serum or plasma total carbon dioxide measurement (moles/volume)Ordered By: Luis Lennon on 09-01-2022 CO2 [Moles/Vol] 23.9 mmol/L 22.0-30.0 [facility] Serum or plasma urea nitroge n measurement (mass/volume)Ordered By: Luis Lennon on 09-01-2022 Urea nitrogen [Mass/Vol] 23 mg/dL 9-23 [facility] Specific gravity Auto test s trip (U) [Rel density]Ordered By: Luis Lennon on 09-01-2022 Specific gravity (U) [Rel density] 1.022 1.001-1.03 0 [facility] Squamous epithelial cells de tection in urine sediment by light microscopyOrdered By: Luis Lennon on 09-01-2022 Epithelial cells.squamous LM Ql (Urine sed) 5-9 [HPF] 0-2 [facility] Troponin I.cardiac [Mass/vol ume] in Serum or Plasma by High sensitivity methodOrdered By: Luis Lennon on 09-01-2022 Troponin I.cardiac High sensitivity method [Mass/Vol] 7 pg/mL 0-15 [facility] Urine bacteria detection by automated methodOrdered By: Luis Lennon on 09-01-2022 Bacteria Auto Ql (U) None seen None Seen [facility] Urine clarity by refractomet ry automatedOrdered By: Luis Lennon on 09-01-2022 Clarity Refractometry automated (U) Clear Clear [facility] Urine culture routineOrdered By: Luis Lennon on 09-01-2022 Bacteria identified Cx Nom (U) 2 Days [facility] Bacteria identified Cx Nom (U) 2 Days [facility] Urine glucose measurement by automated test strip (mass/volume)Ordered By: Luis Lennon on 09-01-2022 Glucose Auto test strip (U) [Mass/Vol] Normal mg/dL Normal [facility] Urine hemoglobin detection b y automated test stripOrdered By: Luis Lennon on 09-01-2022 Hemoglobin Auto test strip Ql (U) Negative Negative [facility] Urine leukocyte esterase det ection by automated test stripOrdered By: Luis Lennon on 09-01-2022 Leukocyte esterase Auto test strip Ql (U) 2+ Negative [facility] Urobilinogen Auto test strip (U) [Mass/Vol]Ordered By: Luis Lennon on 09-01-2022 Urobilinogen (U) [Mass/Vol] Normal mg/dL Normal [facility] WBC Auto (Bld) [#/Vol]Ordere d By: Luis Lennon on 09-01-2022 WBC (Bld) [#/Vol] 8.1 10*3/uL 3.8-11.6 [facility] pH Auto test strip (U)Ordere d By: Luis Lennon on 09-01-2022 pH (U) 5.5 [pH] 5.0-9.0 [facility] Office Visit (Cardiology)on 06-26-2022 Follow-up [...] Signs Recorded: 26Jun2022 02:26PM Heart Rate71, Apical [id number], LUE, Sitting [id number], LUE, Sitting Height4 ft 11 in Vrvaic542 lb BMI Lfwrhzqdiu24.92 kg/m2 BSA Calculated1.69 Tobacco Useb) No Falls Screening (Age 18+)a) No falls within the last year EKG COMPLETED IN OFFICE Physical Exam Constitutional: alert and in no acute distress. Neck: neck is supple, symmetric, trachea midline, no masses and no thyromegaly . Pulmonary: no increased work of breathing or signs of respiratory distress (more content not included)... Normal [employer] Tobacco Screening.on Fall risk assessment a) [facility] [employer] [facility] Work Phone: Tobacco use status CP b) No [facility] [address] DO Work Phone: NM GASTRIC [...] Date: 2022-05-12 12:48 Normal [facility] Covid-19 PCR (CVDTB)on SARS-CoV-2 (COVID-19) RNA GUILLERMO+probe Ql (Unsp spec) Not detected Normal NOT DETECTED [facility] Comment on above: Result Comment: This test is not yet approved or cleared by the [place] FDA. When there are no FDA-approved or cleared tests available, and other criteria are met, FDA can make tests available under an emergency access mechanism called an Emergency Use Authorization (EUA). The EUA for this test is supported by the [place] of Health and Human Service's (HHS's) declaration [...] consistent with SARS-CoV-2. Performed By: #### [facility] #### [facility] [address] [place] [address] Dr. 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 She reports she underwent esophageal [...] tired. Cardiovascular: (more content not included)... Normal [employer] Tobacco Screening.on 022 Fall risk assessment a) No falls within the last year [facility] [employer] [place] [address] DO Work Phone: Tobacco use status CP b) [facility] [address] DO Work Phone: Albumin [Mass/volume] in Ser um or PlasmaOrdered By: John Mims on 03-09-2022 Albumin [Mass/Vol] 3.7 g/dL 3.2-5.5 [facility] Basophils Auto (Bld) [#/Vol] Ordered By: John Mims on 03-09-2022 Basophils (Bld) [#/Vol] 0.0 10*3/uL 0.0-0.2 [facility] Basophils/100 WBC Auto (Bld) Ordered By: John Mims on 03-09-2022 Basophils/100 WBC (Bld) 0.7 % . [facility] Blood hemoglobin measurement (mass/volume)Ordered By: John Mims on 03-09-2022 Hemoglobin (Bld) [Mass/Vol] 13.7 g/dL 11.8-15.4 [facility] Blood leukocytes automated c ount (number/volume)Ordered By: John Mims on 03-09-2022 WBC (Bld) [#/Vol] 6.2 10*3/uL 4.5-11.0 [facility] Creatinine and Glomerular fi ltration rate.predicted panel (S/P/Bld)Ordered By: John Mims on 03-09-2022 Creatinine [Mass/Vol] 1.10 mg/dL 0.44-1.03 [facility] Eosinophils Auto (Bld) [#/Vo l]Ordered By: John Mims on 03-09-2022 Eosinophils (Bld) [#/Vol] 0.3 10*3/uL 0.0-0.45 [facility] Eosinophils/100 WBC Auto (Bl d)Ordered By: John Mims on 03-09-2022 Eosinophils/100 WBC (Bld) 4.2 % . [facility] Erythrocyte distribution wid th Auto (RBC) [Ratio]Ordered By: John Mims on 03-09-2022 Erythrocyte distribution width (RBC) [Ratio] 13.3 % 11.9-15.3 [facility] Estimated glomerular filtrat ion rate (GFR) non- AmericanOrdered By: John Mims on 03-09-2022 GFR/1.73 sq M.predicted among non-blacks MDRD (S/P/Bld) [Vol rate/Area] 48 mL/Min [facility] Globulin Calc (S) [Mass/Vol] Ordered By: John Mims on 03-09-2022 Globulin (S) [Mass/Vol] 2.6 g/dL [facility] Hematocrit Auto (Bld) [Volum e fraction]Ordered By: John Mims on 03-09-2022 Hematocrit (Bld) [Volume fraction] 40.9 % 34.0-46.4 [facility] Laboratory - CoagulationOrde red By: John Mims on 03-09-2022 PT Coag (PPP) [Time] 17.6 s 9.0-12.[address] [facility] - Hematology and Cell countsOrdered By: John Mims on 03-09-2022 Nucleated RBC/100 WBC (Bld) [Ratio] 0.0 % 0-0.5 [facility] Lymphocytes Auto (Bld) [#/Vo l]Ordered By: John Mims on 03-09-2022 Lymphocytes (Bld) [#/Vol] 1.1 10*3/uL 1.00-4.8 [facility] Lymphocytes/100 WBC Auto (Bl d)Ordered By: John Mims on 03-09-2022 Lymphocytes/100 WBC (Bld) 17.2 % . [facility] MCH Auto (RBC) [Entitic mass ]Ordered By: John Mims on 03-09-2022 MCH (RBC) [Entitic mass] 30.8 pg 24.7-34.3 [facility] MCHC Auto (RBC) [Mass/Vol]Or dered By: John Mims on 03-09-2022 MCHC (RBC) [Mass/Vol] 33.4 g/dL 32.0-35.0 [facility] MCV Auto (RBC) [Entitic vol] Ordered By: John Mims on 03-09-2022 MCV (RBC) [Entitic vol] 92.2 fL 80-100 [facility] Monocyte %Ordered By: Letty Mims on 03-09-2022 Monocyte % 24 umol/L 11-35 [facility] Monocytes Auto (Bld) [#/Vol] Ordered By: John Mims on 03-09-2022 Monocytes (Bld) [#/Vol] 0.5 10*3/uL 0.0-0.8 [facility] Monocytes/100 WBC Auto (Bld) Ordered By: John Mims on 03-09-2022 Monocytes/100 WBC (Bld) 7.4 % . [facility] Neutrophils Auto (Bld) [#/Vo l]Ordered By: John Mims on 03-09-2022 Neutrophils (Bld) [#/Vol] 4.4 10*3/uL 1.8-7.7 [facility] Neutrophils/100 WBC Auto (Bl d)Ordered By: John Mims on 03-09-2022 Neutrophils/100 WBC (Bld) 70.5 % . [facility] No Panel InformationOrdered By: John Mims on 03-09-2022 Estimated GFR () 58 mL/Min [facility] Comment on above: GFR estimated refere nce range: According to KDOQI guidelines, <60 ml/min/1.73m2 is sufficient to diagnose a patient with chronic kidney disease. Pharmacy Creatinine Clearance (Chem N/A [facility] Platelet mean volume Auto (B ld) [Entitic vol]Ordered By: John Mims on 03-09-2022 Platelet mean volume (Bld) [Entitic vol] 8.5 fL 6.3-10.7 [facility] Platelet poor plasma interna tional normalized ratio (INR) by coagulation assay (relatOrdered By: John Mims on 03-09-2022 INR Coag (PPP) [Relative time] 1.6 {INR} [facility] Comment on above: INR Therapeutic [...] 03-09-2022 Platelets (Bld) [#/Vol] 213 10*3/uL 150-450 [facility] Protein [Mass/volume] in Ser um or PlasmaOrdered By: John Mims on 03-09-2022 Protein [Mass/Vol] 6.3 g/dL 6.1-7.9 [facility] RBC Auto (Bld) [#/Vol]Ordere d By: John Mims on 03-09-2022 RBC (Bld) [#/Vol] 4.44 10*6/uL 3.60-5.00 [facility] Serum or plasma alanine mahmood otransferase measurement without P-5'-P (enzymatic activiOrdered By: John Mims on 03-09-2022 ALT No additional P-5'-P [Catalytic activity/Vol] 23 U/L 10-60 [facility] Serum or plasma albumin/glob ulin mass ratioOrdered By: John Mims on 03-09-2022 Albumin/Globulin [Mass ratio] 1.4 {ratio} [facility] Serum or plasma alkaline mia sphatase measurement (enzymatic activity/volume)Ordered By: John Mims on 03-09-2022 ALP [Catalytic activity/Vol] 98 U/L 32-92 [facility] Serum or plasma aspartate am inotransferase measurement (enzymatic activity/volume)Ordered By: John Mims on 03-09-2022 AST [Catalytic activity/Vol] 27 U/L 10-42 [facility] Serum or plasma calcium mitch urement (mass/volume)Ordered By: John Mims on 03-09-2022 Calcium [Mass/Vol] 9.3 mg/dL 8.2-10.2 [facility] Serum or plasma chloride carlitos surement (moles/volume)Ordered By: John Mims on 03-09-2022 Chloride [Moles/Vol] 106 mmol/L 95-[address] [facility] Serum or plasma glucose mitch urement (mass/volume)Ordered By: John Mims on 03-09-2022 Glucose [Mass/Vol] 88 mg/dL 70-100 [facility] Comment on above: ADA recommended refe rence range Random Glucose Reference Range is dependent on time and content of last meal. Glucose of more than 200 mg/dL in a nonstressed, ambulatory subject supports the diagnosis of Diabetes Mellitus. Serum or plasma potassium me asurement (moles/volume)Ordered By: John Mims on 03-09-2022 Potassium [Moles/Vol] 4.6 mmol/L 3.5-5.1 [facility] Serum or plasma sodium measu rement (moles/volume)Ordered By: John iMms on 03-09-2022 Sodium [Moles/Vol] 139 mmol/L 136-146 [facility] Serum or plasma total biliru bin measurement (mass/volume)Ordered By: John Mims on 03-09-2022 Bilirubin [Mass/Vol] 0.9 mg/dL 0.3-1.[address] [facility] Serum or plasma total carbon dioxide measurement (moles/volume)Ordered By: John Mims on 03-09-2022 CO2 [Moles/Vol] 23.9 mmol/L 22.0-30.0 [facility] Serum or plasma urea nitroge n measurement (mass/volume)Ordered By: John Mims on 03-09-2022 Urea nitrogen [Mass/Vol] 30 mg/dL 9-23 [facility] TSH DL <= 0.005 mIU/L QnOrde red By: John Mims on 03-09-2022 TSH Qn 1.70 m[IU]/L 0.45-5.33 [facility] Thyroxine (T4) free [Mass/vo lume] in Serum or PlasmaOrdered By: John Mims on 03-09-2022 Free T4 [Mass/Vol] 1.37 ng/dL 0.61-1.12 [facility] US SINGLE QUAD RT UPPERon US [...] Date: 2022-01-25 16:24 Normal [facility] BNPon 01-11-2022 Natriuretic peptide B (Bld) [Mass/Vol] 520.0 pg/mL Normal <=1,800.0 [facility] Comment on above: Performed By: #### B MP, TSH, BNP #### [facility] [address] [place], [place] [address] Dr. Lori Sutton CBC AUTO DIFFon 01-11-2022 BASO # 0.0 103/ul Normal 0.0-0.1 [facility] Comment on above: Performed By: #### C BC ####[facility] [address] [place] [address]DrMelita Sutton Basophils/100 WBC (Bld) 0.5 % Normal 0.2-2.0 [facility] Comment on above: Performed By: #### C BC ####[facility] [address] [place] [id number] Sutton EO # 0.3 103/ul Normal 0.0-0.7 [facility] Comment on above: Performed By: #### C BC ####[facility] Xuqtm[address]sw[address] [place] [address]DrMelita Sutton Eosinophils/100 WBC (Bld) 3.9 % Normal 0.9-7.0 [facility] Comment on above: Performed By: #### C BC ####[facility] [address] [place] [address]DrMelita Sutton Erythrocyte distribution width (RBC) [Ratio] 14.4 % Normal 11.0-15.0 [facility] Comment on above: Performed By: #### C BC ####[facility] [address] [place] [address]Dr. Lori Sutton Hematocrit (Bld) [Volume fraction] 42.0 % Normal 36.0-48.0 [facility] Comment on above: Performed By: #### C BC ####[facility] [address] [place] [address]Dr. Lori Sutton Hemoglobin (Bld) [Mass/Vol] 13.4 g/dL Normal 12.0-16.0 [facility] Comment on above: Performed By: #### C BC ####[facility] [address] [place], [place] [address]Dr. Lori Sutton IG # 0.04 10e3/ul Critically high 0.00-0.03 [facility] Comment on above: Performed By: #### C BC ####[facility] [address] [place] [address]Dr. Estephaniaurbano Sutton IG % 0.5 % Normal 0.0-0.5 [facility] Comment on above: Performed By: #### C BC ####[facility] [address] [place], [place] [address]DrMelita Lori Herman LYMPH # 1.7 103/ul Normal 1.2-3.8 [facility] Comment on above: Performed By: #### C BC ####[facility] [address] [place], [place] [address]DrMelita Estephaniaurbano Sutton Lymphocytes/100 WBC (Bld) 21.3 % Normal 20.5-60.0 [facility] Comment on above: Performed By: #### C BC ####[facility] [address] [place] [address]DrMelita Estephaniaurbano Sutton MANUAL DIFF REQ NO Normal [facility] Comment on above: Performed By: #### C BC ####[facility] [address] [place] [address]Dr. Estephaniaurbano Sutton MCH (RBC) [Entitic mass] 30.6 pg Normal 26.7-34.0 [facility] Comment on above: Performed By: #### C BC ####[facility] T[address]q34[address] [place] [address]Dr. Lori Sutton MCHC (RBC) [Mass/Vol] 31.9 g/dL Normal 29.9-35.2 [facility] Comment on above: Performed By: #### C BC ####[facility] Ikaexrmexr[address] [place] [address]DrMelita Sutton MCV (RBC) [Entitic vol] 95.9 fL Normal 81.0-99.0 [facility] Comment on above: Performed By: #### C BC ####[facility] F[address] [place], [place] [address]Dr. Lori Sutton MONO # 0.7 103/ul Normal 0.3-0.8 [facility] Comment on above: Performed By: #### C BC ####[facility] Y[address]rwd[address] [place], [place] [address]Dr. Lori Sutton Monocytes/100 WBC (Bld) 8.5 % Normal 1.7-12.0 [facility] Comment on above: Performed By: #### C BC ####[facility] Cir[address] [place], [place] [address]Dr. Lori Sutton NEUT # 5.2 103/ul Normal 1.4-6.5 [facility] Comment on above: Performed By: #### C BC ####[facility] [address] [place], [place] [address]DrMelita Sutton Neutrophils/100 WBC (Bld) 65.3 % Normal 43.0-75.0 [facility] Comment on above: Performed By: #### C BC ####[facility] [address] [place], [place] [address]DrMelita Sutton Platelet mean volume (Bld) [Entitic vol] 10.3 fL Normal 9.5-13.5 [facility] Comment on above: Performed By: #### C BC ####[facility] [address] [place], [place] [address]Dr. Lori Sutton PLT 230 103/ul Normal 150-450 [facility] Comment on above: Performed By: #### C BC ####[facility] [address] [place], [place] [address]GdDr. Lori Sutton RBC 4.38 106/ul Normal 4.20-5.40 [facility] Comment on above: Performed By: #### C BC ####[facility] [address] [place], [place] [address]ZnDr. Lori Sutton WBC 8.0 103/ul Normal 4.0-11.0 [facility] Comment on above: Performed By: #### C BC ####[facility] [address]ub[address] [place] [address]Dr. Lori Sutton PROF CHEM 8 (BAS METB)on Anion gap [Moles/Vol] 14.3 mmol/L Normal Th [facility] Comment on above: Performed By: #### B MP, TSH, BNP #### [facility] [address] [place] [address] [address] Lori Sutton Calcium [Mass/Vol] 8.8 mg/dL Normal 8.5-10.1 [facility] [place] Comment on above: Performed By: #### B MP, TSH, BNP #### [facility] [address] [place] [address] Dr. Lori Sutton Chloride [Moles/Vol] 103 mmol/L Normal 98-107 [facility] Comment on above: Performed By: #### B MP, TSH, BNP #### [facility] [address] [place] [address] [address] Lori Sutton CO2 [Moles/Vol] 27.5 mmol/L Normal 21.0-32.0 [facility] Comment on above: Performed By: #### B MP, TSH, BNP #### [facility] [address] [place] [address] [address] Lori Sutton Creatinine [Mass/Vol] 1.65 mg/dL Critically high 0.55-1.02 [facility] Comment on above: Performed By: #### B MP, TSH, BNP #### [facility] [address] [place] [address] Dr. Lori Sutton EGFR-AF MALAYSIAN 36 mL/min/1.73m2 Critically low >=60 [facility] Comment on above: Performed By: #### B MP, TSH, BNP #### [facility] [address] [place] [address] Dr. Lori Sutton EGFR-NON AF MALAYSIAN 30 mL/min/1.73m2 Critically low >=60 [facility] Comment on above: Performed By: #### B MP, TSH, BNP #### [facility] [address] [place] [address] Dr. Lori Sutton Glucose [Mass/Vol] 88 mg/dL Normal 74-106 [facility] [place] Comment on above: Performed By: #### B MP, TSH, BNP #### [facility] [address] [place] [address] Dr. Lori Sutton Potassium [Moles/Vol] 4.8 mmol/L Normal 3.5-5.1 [facility] Comment on above: Performed By: #### B MP, TSH, BNP #### [facility] [address] [place] [address] Dr. Lori Sutton Sodium [Moles/Vol] 140 mmol/L Normal 136-145 [facility] Comment on above: Performed By: #### B MP, TSH, BNP #### [facility] [address] [place] [address] Dr. Lori Sutton Urea nitrogen [Mass/Vol] 46.0 mg/dL Critically high 7.0-18.0 [facility] Comment on above: Performed By: #### B MP, TSH, BNP #### [facility] [address] [place] [address] Dr. Lori Sutton Urea nitrogen/Creatinine [Mass ratio] 27.9 mg/mg Normal [facility] Comment on above: Performed By: #### B MP, TSH, BNP #### [facility] [address] [place] [address] Dr. Lori Sutton TSHon 01-11-2022 TSH 2.012 uIU/mL Normal 0.358-3.74 0 [facility] Comment on above: Performed By: #### B MP, TSH, BNP #### [facility] [address] [place], [place] [address] Dr. Lori Sutton TSH RANGE SEE BELOW Normal [facility] Comment on above: Result Comment: <0.3 4 UIU/ml HYPERTHYROID 0.34-5.60 UIU/ml EUTHYROID >5.60 UIU/ml HYPOTHYROID Performed By: #### B MP, TSH, BNP #### [facility] [address] [place], [place] [address] Dr. Lori Sutton XR CHEST 2 Von [...] Date: 2022-01-11 15:14 Normal [facility] COVID-19 Positive/NegativeOr dered By: John Mims on 12-30-2021 SARS-CoV-2 (COVID-19) N gene GUILLERMO+probe Ql (Resp) Negative Negative [facility] Comment on above: Testing for SARS-CoV -2 by RT-PCR This test was developed and its performance characteristics determined by [employer] ([employer]) and validated at the [facility]. This test has not been [...] a) No falls within the last year [facility] Marie DO Work Phone: [phone] Tobacco use status [facility] b) No [facility] Work Phone: Tobacco Screening. Yes [facility] kel Marie DO Work Phone: RAD - CT Reporton 10-10-2021 RAD - CT Report [id number]#1.00CD:127 Normal [facility] Tobacco Screening.on 021 Fall risk assessment b) One or more fall s in the last year [facility] Work Phone: Tobacco use status [facility] b) No [facility] kel Marie DO Work Phone: RAD - CT Reporton 07-24-2021 RAD - CT Report [id number]#1.00CD:127 [facility] Consent for Procedure/Surger yon 07-22-2021 Consent for Procedure/Surgery [id number]#1.00CD:127 Normal [facility] Ambulatory Clinical Summaryo n 07-21-2021 Ambulatory Clinical Summary {[id number]}CD: [id number] Normal [facility] Patient Educationon 07-21-20 Patient Education Urology Kidney [...] these instructions at home: Medicines ? Take fefy-vbl-iaxqbnz and prescription medicines only as told by [...] 01/22/2009 Document Revised: 12/23/2019 Document Reviewed: 12/23/2019 [employer] Patient Education ? 2019 [employer]. [facility]emin [facility] Urology Office/Clinic Noteon 07-21-2021 Urology Office/Clinic [...] 07/01/2021. Pt. was seen in consult at [facility]. CT done 06/27/2021 shows left hydronephrosis. [...] 01/19/[address] [place] [id number]- Additional Instructions: KUB Patient Education Kidney Stones, Kpgw-id-Olhv Leonor Brown, personally scribed for Dr. Alfonso on 07/21/2021 15:11:38. . Documentation recorded by the aryibLeonor hahn, accurately reflects the services(s) I performed and [...] Tobacco Use:. Never Smokeless Tobacco Use:., 07/21/2021 [facility] Comment on above: Result Comment: Elec tronically Signed By: Byron ALFONSO MD\.br\Date and Time Signed: 07/21/21 15:17 EST\.br\Electronically Co-Signed By: Leonor Rucker\.br\Date and Time Co-Signed: 07/21/21 15:12 EST Falls Risk Screeningon 07-06 Fall risk assessment a) No falls within the last year [facility] [address] DO Work Phone: Pathology Noteon 07-06-2021 Pathology Note [id number]#1.00CD:127 [facility] Operative Reporton Operative Report [id number]#1.00CD:127 [facility] RAD - MISCon 07-04-2021 RAD - MISC [id number]#1.00CD:127 [facility] Insurance Correspondence Off iceon 07-01-2021 Insurance Correspondence Office [id number]#1.00CD:127 Normal [facility] Consultation Noteon 06-29-20 Consultation Note [id number]#1.00CD:127 Normal [facility] No Panel Informationon 06-24 [facility] [place] [address] [place] Work Phone: [phone] 20.44\S\20.44 Normal [facility] [address] [place] Work Phone: Comment on above: PERFORMED BY:[place] [address] [address] [place] [id number] MEDICAL DIRECTORVITOR ZARATE M.D. 9.0\S\9.0 Normal 8.2-10.2 [facility] [address] [place] Work Phone: [phone] 24.1\S\24.1 Normal 22.0-30.0 [facility] [address] [place] Work Phone: [phone] 103\S\103 Normal 95-114 [facility] [address] [place] Work Phone: [phone] 4.4\S\4.4 Normal 3.5-5.1 [facility] [place] [address] [place] Work Phone: [phone] 138\S\138 Normal 136-146 [facility] [address] [place] Work Phone: [phone] 31\S\31 Normal [facility] [address] [place] Work Phone: Comment on above: GFR estimated refere nce range: According to KDOQI guidelines, <60 ml/min/1.73m2 is sufficient to diagnose a patient with chronic kidney disease. 26\S\26 Normal [facility] [address] [place] Work Phone: [phone] 1.88\S\1.88 above high threshold 0.44-1.03 [facility] [address] [place] Work Phone: \S\34 above high threshold 9-23 [facility] [address] [place] Work Phone: [phone] 130\S\130 above high threshold 70-100 [facility] [address] [place] Work Phone: [phone] Comment on above: Random Glucose Refer ence Range is dependent on time and content of last meal. Glucose of more than 200 mg/dL in a nonstressed, ambulatory subject supports the diagnosis of Diabetes Mellitus. ADA recommended reference range No Panel Informationon 06-23 3+ above high threshold Negative [facility] [place] [address] [place] Work Phone: [phone] Negative Normal Negative [facility] [address] [place] Work Phone: [phone] Normal Normal [facility] [address] [place] Work Phone: \S\30 above high threshold Negative [facility] [address] [place] Work Phone: [phone] None Seen Normal 0-8 -[facility] [place] [address] [place] Work Phone: [phone] Comment on above: PERFORMED BY:[place] [address] [address] [place], [place] [id number] MEDICAL DIRECTORVITOR ZARATE M.D. 4+ above high threshold Negative [facility] [place] [address] [place] Work Phone: [phone] 0-1 Normal 0-2 [facility] [address] [place] Work Phone: [phone] Innumerable above high threshold 0-4 [facility] [address] [place] Work Phone: [phone] Positive above high threshold Negative [facility] [address] [place] Work Phone: [phone] 5.5\S\5.5 Normal 5.0-9.0 [facility] [address] [place] Work Phone: [phone] 1.015\S\1.015 Normal 1.001-1.03 0 [facility] [address] [place] Work Phone: [phone] Turbid Critically abnormal Clear [facility] [address] [place] Work Phone: [phone] Yellow Normal Yellow [facility] [address] [place] Work Phone: [phone] [facility] [address] [place] Work Phone: [phone] 21\S\21 Normal [facility] [address] [place] Work Phone: [phone] 21.8\S\21.8 below low threshold 23.0-27.0 [facility] [address] [place] Work Phone: [phone] 7.2\S\7.2 Normal 6.6-9.7 [facility] [address] [place] Work Phone: [phone] 95.4\S\95.4 Normal 95.0-100.0 [facility] [address] [place] Work Phone: [phone] -2.7\S\-2.7 Normal -3.0-3.0 [facility] [address] [place] Work Phone: [phone] 20.8\S\20.8 below low threshold 23.0-29.0 [facility] [address] [place] Work Phone: [phone] 76.9\S\76.9 below low threshold 80.0-100.0 [facility] [address] [place] Work Phone: [phone] 32.1\S\32.1 below low threshold 35.0-45.0 [facility] [address] [place] Work Phone: [phone] 7.43\S\7.43 Normal 7.35-7.45 [facility] [address] [place] Work Phone: [phone] Normal [facility] [address] [place] Work Phone: [phone] Comment on above: Critical Value gustafson amarjit on: 06/23/2021 at 13:35PERFORMED BY:[facility] [place] [id number] MEDICAL DIRECTORVITOR ZARATE M.D. Right Radial Normal -[facility] [address] [place] Work Phone: 24.4\S\24.4 Normal 22.0-30.0 -[facility] [address] [place] Work Phone: Comment on above: PERFORMED BY:[facility] ALEXJovaniMelitaTRI [place] [id number] MEDICAL DIRECTORVITOR ZARATE M.D. 104\S\104 Normal 95-114 -[facility] [address] [place] Work Phone: 4.4\S\4.4 Normal 3.5-5.1 -[facility] [address] [place] Work Phone: 141\S\141 Normal 136-146 [facility] [address] [place] Work Phone: [facility] [address] [place] Work Phone: Radiologyon 06-23-2021 Portable XR Chest Views Normal [facility] [address] [place] Work Phone: BASIC METABOLIC PANELon 07-20 Calcium [Mass/Vol] 8.4 mg/dL Low 8.6-10.3 [facility] Comment on above: Order Comment: No: D o not add to previous draw Pt care Performed By: #### 0 0071 #### [facility] [address] [place] [address], [facility] Chloride [Moles/Vol] 105 mmol/L Normal 98-107 [facility] Comment on above: Order Comment: No: D o not add to previous draw Pt care Performed By: #### 0 0071 #### [facility] [address] [place] [address], [place] CO2 [Moles/Vol] 23 mmol/L Normal 21-31 [facility] Comment on above: Order Comment: No: D o not add to previous draw Pt care Performed By: #### 0 0071 #### [facility] [address] [place] [address], [place] Creatinine [Mass/Vol] 1.14 mg/dL Normal 0.60-1.20 [facility] Comment on above: Order Comment: No: D o not add to previous draw Pt care Performed By: #### 0 0071 #### [facility] [address] [place] [address], [place] GFR/1.73 sq M predicted among blacks MDRD (S/P/Bld) [Vol rate/Area] 56 ml/min/1.73sq m Abnormal >60 [facility] Comment on above: Order Comment: No: D o not add to previous draw Pt care Result Comment: Calc ulation may not be valid for patients over 70 years Performed By: #### 0 0071 #### [facility] [address] [place] [address], [place] GFR/1.73 sq M predicted among non-blacks MDRD (S/P/Bld) [Vol rate/Area] 46 ml/min/1.73sq m Abnormal >60 [facility] Comment on above: Order Comment: No: D o not add to previous draw Pt care Result Comment: Calc ulation may not be valid for patients over 70 years Performed By: #### 0 0071 #### [facility] [address] [place] [address], [place] Glucose [Mass/Vol] 151 mg/dL High 70-100 [facility] Comment on above: Order Comment: No: D o not add to previous draw Pt care Performed By: #### 0 0071 #### [facility] [address] [place] [address], [place] Potassium [Moles/Vol] 3.9 mmol/L Normal 3.5-5.1 [facility] Comment on above: Order Comment: No: D o not add to previous draw Pt care Performed By: #### 0 0071 #### [facility] [address] [facility]. [address] Sodium [Moles/Vol] 139 mmol/L Normal 136-145 [facility] Comment on above: Order Comment: No: D o not add to previous draw Pt care Performed By: #### 0 0071 #### [facility] [address] Urea nitrogen [Mass/Vol] 14 mg/dL Normal 7-25 [facility] Comment on above: Order Comment: No: D o not add to previous draw Pt care Performed By: #### 0 0071 #### [facility] [address] [place] [address], [facility] CTA CHESTon 07-31-2020 CTA CHEST [facility] Department of Radiology [address] [place] [id number] Patient Name: AUSTIN GOLDEN : 1940 Sex: F Age: Race: White Pt. Location: [id number] Patient Status: D Ordered Date: 07/31/2020 10:25:00 [...] reports Electronically signed: Drew Rios. Transcribed by: [email or web address], User Resident: SANTO LAZO Electronically Signed by: DREW RIOS @ 08/02/2020 09:34 AM I personally read this/these film(s) with this resident Normal [facility] Comment on above: Order Comment: 12 ho urs post vitamin K administration/pre-procedure warfarin reversal No: Do not add to previous draw PROTHROMBIN TIMEon 0 INR Coag (PPP) [Relative time] 1.10 {INR} Normal 0.91-1.16 [facility] Comment on above: Order [...] CHEST 1995;108:231S-246S. Performed By: #### 0 0071, [id number] #### [facility] [address] PT Coag (PPP) [Time] 14.2 s Normal 12.3-14.8 [facility] Comment on above: Order Comment: No: D o not add to previous draw Result Comment: ALL RESULTS MUST BE INTERPRETED WITH RESPECT TO BLOOD DRAWING ARTIFACT OR DILUTION ERROR OF ANTICOAGULANT AT THE TIME OF SAMPLING. Performed By: #### 0 0071, [id number] #### [facility] [address] [place] [address], [facility] UFH HEPARIN ASSAYon 07-31-20 20 UNFRACTIONATED HEPARIN 0.32 IU/mL Normal 0.30-0.70 [facility] Comment on above: Result Comment: Aracelis roxaban and Apixaban will interfere with the anti Xa assay used to monitor UFH and LMWH. Performed By: #### 0 0071, 40194 #### [facility] [address] [place] [address], [facility] URINALYSIS REFLEXon 07-31-20 20 Appearance (U) CLOUDY Abnormal CLEAR [facility] Comment on above: Order Comment: No: D o not add to previous draw Performed By: #### 5 3629, 47061, 25496 #### [facility] [address] [place] [address], [facility] Bilirubin [Mass/Vol] Negative Normal NEGATIVE [facility] Comment on above: Order Comment: No: D o not add to previous draw Performed By: #### 5 3629, 49826, 08176 #### [facility] [address] [place] [address], [facility] BLOOD LARGE Abnormal NEGATIVE [facility] Comment on above: Order Comment: No: D o not add to previous draw Performed By: #### 5 3629, 23781, 45457 #### [facility] [address] [place] [address], [place] Color (U) NEGIN Abnormal YELLOW [facility] Comment on above: Order Comment: No: D o not add to previous draw Performed By: #### 5 3629, 99819, 79709 #### [facility] [address] [place] [address], [facility] EPIS MANY Abnormal FEW,OCC,NO NE SEEN [facility] Comment on above: Order Comment: No: D o not add to previous draw Performed By: #### 5 3629, 78607, 60264 #### [facility] [address] [place] [address], [place] Glucose [Mass/Vol] Negative Normal NEGATIVE [facility] Comment on above: Order Comment: No: D o not add to previous draw Performed By: #### 5 3629, 49311, 02582 #### [facility] [address] [place] [address], [place] KETONE Negative Normal NEGATIVE [facility] Comment on above: Order Comment: No: D o not add to previous draw Performed By: #### 5 9, 86077, 59829 #### [facility] [facility] [address] [place] [address], [place] LEUK GEOFFREY MODERATE Abnormal NEGATIVE [facility] Comment on above: Order Comment: No: D o not add to previous draw Performed By: #### 5 3628, 35701, 73723 #### [facility] [address] [place] [address], [place] MUCUS THREADS FEW Abnormal NONE SEEN [facility] Comment on above: Order Comment: No: D o not add to previous draw Performed By: #### 5 3628, 23294, 98513 #### [facility] [address] [place] [address], [place] Nitrite Ql (U) Positive Abnormal NEGATIVE [facility] Comment on above: Order Comment: No: D o not add to previous draw Performed By: #### 5 3628, 22386, 59816 #### [facility] [address] [place] [address], [place] pH (Bld) 5.0 Normal 5.0-8.0 [facility] Comment on above: Order Comment: No: D o not add to previous draw Performed By: #### 5 3628, 88325, 97016 #### [facility] [address] [place] [address], [place] Protein (U) [Mass/Vol] 100 mg/dL Abnormal NEGATIVE [facility] Comment on above: Order Comment: No: D o not add to previous draw Performed By: #### 5 3629, 14399, 57274 #### [facility] [address] [place] [id number], [facility] RBC (U) [#/Vol] /uL Abnormal NONE SEEN [facility] Comment on above: Order Comment: No: D o not add to previous draw Performed By: #### 5 3629, 01293, 15588 #### [facility] [address] [place] [address], [facility] SPEC GRAV 1.025 High 1.015-1.02 0 [facility] Comment on above: Order Comment: No: D o not add to previous draw Performed By: #### 5 3629, 53620, 74474 #### [facility] [address] [place] [id number], [facility] WBC UA >100 Abnormal NONE SEEN [facility] Comment on above: Order Comment: No: D o not add to previous draw Performed By: #### 5 3629, 05314, 82949 #### [facility] [address] [place] [address], [facility] BASIC METABOLIC PANELon 12-1 Calcium [Mass/Vol] 8.1 mg/dL Low 8.6-10.3 [facility] Comment on above: Order Comment: No: D o not add to previous draw Performed By: #### 0 0071 #### [facility] [address] [place] [address], [facility] Chloride [Moles/Vol] 108 mmol/L High 98-107 [facility] Comment on above: Order Comment: No: D o not add to previous draw Performed By: #### 0 0071 #### [facility] [address] [place] [address], [facility] CO2 [Moles/Vol] 24 mmol/L Normal 21-31 [facility] Comment on above: Order Comment: No: D o not add to previous draw Performed By: #### 0 0071 #### [facility] [address] [place] [address], [facility] Creatinine [Mass/Vol] 0.99 mg/dL Normal 0.60-1.20 [facility] Comment on above: Order Comment: No: D o not add to previous draw Performed By: #### 0 0071 #### [facility] [address] [place] [address], [facility] GFR/1.73 sq M predicted among blacks MDRD (S/P/Bld) [Vol rate/Area] mL/min/{1.73_m2} Normal >60 [facility] Comment on above: Order Comment: No: D o not add to previous draw Result Comment: Calc ulation may not be valid for patients over 70 years Performed By: #### 0 0071 #### [facility] [address] [address], [facility] GFR/1.73 sq M predicted among non-blacks MDRD (S/P/Bld) [Vol rate/Area] 54 ml/min/1.73sq m Abnormal >60 [facility] Comment on above: Order Comment: No: D o not add to previous draw Result Comment: Calc ulation may not be valid for patients over 70 years Performed By: #### 0 0071 #### [facility] [address] [place] [address], [facility] Glucose [Mass/Vol] 104 mg/dL High 70-100 [facility] Comment on above: Order Comment: No: D o not add to previous draw Performed By: #### 0 0071 #### [facility] [address] [place] [address], [facility] Potassium [Moles/Vol] 3.5 mmol/L Normal 3.5-5.1 [facility] Comment on above: Order Comment: No: D o not add to previous draw Performed By: #### 0 0071 #### [facility] [address] [place] [address], [facility] Sodium [Moles/Vol] 141 mmol/L Normal 136-145 [facility] Comment on above: Order Comment: No: D o not add to previous draw Performed By: #### 0 0071 #### [facility] [address] [place] [address], [facility] Urea nitrogen [Mass/Vol] 17 mg/dL Normal 7-25 [facility] Comment on above: Order Comment: No: D o not add to previous draw Performed By: #### 0 0071 #### [facility] [address] [place] [address], [facility] CBC COMPLETE BLOOD COUNTon 09-30-2019 Erythrocyte distribution width (RBC) [Ratio] 17.3 % High 11.5-15.0 [facility] Comment on above: Order Comment: 12 ho urs post vitamin K administration/pre-procedure warfarin reversal No: Do not add to previous draw Performed By: #### 5 [id number] #### [facility] [address] [place] [address], [facility] Hematocrit (Bld) [Volume fraction] 37.7 % Normal 36.0-45.0 [facility] Comment on above: Order Comment: 12 ho urs post vitamin K administration/pre-procedure warfarin reversal No: Do not add to previous draw Performed By: #### 5 [id number] #### [facility] [address] [place] [address], [facility] Hemoglobin (Bld) [Mass/Vol] 12.0 g/dL Normal 12.0-15.0 [facility] Comment on above: Order Comment: 12 ho urs post vitamin K administration/pre-procedure warfarin reversal No: Do not add to previous draw Performed By: #### 5 [id number] #### [facility] [address] [place] [address], [facility] MCH (RBC) [Entitic mass] 29.0 pg Normal 27.0-33.0 [facility] Comment on above: Order Comment: 12 ho urs post vitamin K administration/pre-procedure warfarin reversal No: Do not add to previous draw Performed By: #### 5 6101 #### [facility] [address] [address], [facility] MCHC (RBC) [Mass/Vol] 31.8 g/dL Low 32.0-35.0 [facility] Comment on above: Order Comment: 12 ho urs post vitamin K administration/pre-procedure warfarin reversal No: Do not add to previous draw Performed By: #### 5 6101 #### [facility] [address] MCV (RBC) [Entitic vol] 91.1 fL Normal 82.0-98.0 [facility] Comment on above: Order Comment: 12 ho urs post vitamin K administration/pre-procedure warfarin reversal No: Do not add to previous draw Performed By: #### 5 6101 #### [facility] [address] Nucleated RBC/100 WBC (Bld) [Ratio] 0 % Normal 0-0 [facility] Comment on above: Order Comment: 12 ho urs post vitamin K administration/pre-procedure warfarin reversal No: Do not add to previous draw Performed By: #### 5 6101 #### [facility] [address] [place] [address], [facility] PLAT CNT 233 10*3/uL Normal 150-400 [facility] Comment on above: Order Comment: 12 ho urs post vitamin K administration/pre-procedure warfarin reversal No: Do not add to previous draw Performed By: #### 5 6101 #### [facility] [address] [place] [place] [address], [facility] RBC (Bld) [#/Vol] 4.14 10*6/uL Normal 3.80-5.00 [facility] Comment on above: Order Comment: 12 ho urs post vitamin K administration/pre-procedure warfarin reversal No: Do not add to previous draw Performed By: #### 5 6101 #### [facility] [address] [place] [address], [facility] WBC (Bld) [#/Vol] 9.44 10*3/uL Normal 4.00-10.60 [facility] Comment on above: Order Comment: 12 ho urs post vitamin K administration/pre-procedure warfarin reversal No: Do not add to previous draw Performed By: #### 5 6101 #### [facility] [address] HEMATOCRITon 07-30-2020 Hematocrit (Bld) [Volume fraction] 43.9 % Normal 36.0-45.0 [facility] Comment on above: Order Comment: No: D o not add to previous draw Performed By: #### 5 3629, 22839, 81518 #### [facility] [address] HEMOGLOBINon 07-30-2020 Hemoglobin (Bld) [Mass/Vol] 13.5 g/dL Normal 12.0-15.0 [facility] Comment on above: Order Comment: No: D o not add to previous draw Performed By: #### 5 3629, 08386, 41040 #### [facility] [address] PROTHROMBIN TIMEon 0 INR Coag (PPP) [Relative time] 1.22 {INR} High 0.91-1.16 [facility] Comment on above: Order [...] CHEST 1995;108:231S-246S. Performed By: #### 0 0071, 82609 #### [facility] [address] PT Coag (PPP) [Time] 15.4 s High 12.3-14.8 [facility] Comment on above: Order Comment: No: D o not add to previous draw Result Comment: ALL RESULTS MUST BE INTERPRETED WITH RESPECT TO BLOOD DRAWING ARTIFACT OR DILUTION ERROR OF ANTICOAGULANT AT THE TIME OF SAMPLING. Performed By: #### 0 0071, 59914 #### [facility] [address] UFH HEPARIN ASSAYon 07-30-20 20 UNFRACTIONATED HEPARIN 0.45 IU/mL Normal 0.30-0.70 [facility] Comment on above: Result Comment: [place]ac[place] roxaban and Apixaban will interfere with the anti Xa assay used to monitor UFH and LMWH. Performed By: #### 0 0071, 79089 #### [facility] [address] UNFRACTIONATED HEPARIN 0.52 IU/mL Normal 0.30-0.70 [facility] Comment on above: Result Comment: [place] roxaban and Apixaban will interfere with the anti Xa assay used to monitor UFH and LMWH. Performed By: #### 0 0071, 00610 #### [facility] [address] APTTon 07-29-2020 aPTT Coag (Bld) [Time] s Critically high 25.0-35. 0 [facility] Comment on above: [...] RN @0210 Performed By: #### 0 0071, 33009 #### [facility] [address] [place] [address], [facility] BASIC METABOLIC PANELon 12-1 Calcium [Mass/Vol] 7.4 mg/dL Low 8.6-10.3 [facility] Comment on above: Order Comment: No: D o not add to previous draw Performed By: #### 0 0071, 09135 #### [facility] [address] [place] [address], [place] Chloride [Moles/Vol] 101 mmol/L Normal 98-107 [facility] Comment on above: Order Comment: No: D o not add to previous draw Performed By: #### 0 0071, 77274 #### [facility] [address] [place] [address], [place] CO2 [Moles/Vol] 24 mmol/L Normal 21-31 [facility] Comment on above: Order Comment: No: D o not add to previous draw Performed By: #### 0 0071, 29382 #### [facility] [address] [place] [address], [place] Creatinine [Mass/Vol] 1.02 mg/dL Normal 0.60-1.20 [facility] Comment on above: Order Comment: No: D o not add to previous draw Performed By: #### 0 0071, 77477 #### [facility] [address] [place] [address], [place] GFR/1.73 sq M predicted among blacks MDRD (S/P/Bld) [Vol rate/Area] mL/min/{1.73_m2} Normal >60 [facility] Comment on above: Order Comment: No: D o not add to previous draw Result Comment: Calc ulation may not be valid for patients over 70 years Performed By: #### 0 0071, 51685 #### [facility] [address] [place] [address], [facility] GFR/1.73 sq M predicted among non-blacks MDRD (S/P/Bld) [Vol rate/Area] 53 ml/min/1.73sq m Abnormal >60 [facility] Comment on above: Order Comment: No: D o not add to previous draw Result Comment: Calc ulation may not be valid for patients over 70 years Performed By: #### 0 0071, 79984 #### [facility] [address] [place] [address], [place] Glucose [Mass/Vol] 314 mg/dL High 70-100 [facility] Comment on above: Order Comment: No: D o not add to previous draw Performed By: #### 0 0071, 08436 #### [facility] [address] [place] [address], [place] Potassium [Moles/Vol] 3.1 mmol/L Low 3.5-5.1 [facility] Comment on above: Order Comment: No: D o not add to previous draw Performed By: #### 0 0071, 39190 #### [facility] [address] [place] [address], [place] Sodium [Moles/Vol] 139 mmol/L Normal 136-145 [facility] Comment on above: Order Comment: No: D o not add to previous draw Performed By: #### 0 0071, 58962 #### [facility] [address] [place] [address], [place] Urea nitrogen [Mass/Vol] 15 mg/dL Normal 7-25 [facility] Comment on above: Order Comment: No: D o not add to previous draw Performed By: #### 0 0071, 80517 #### [address] [address], [facility] MAGNESIUM BLOODon 07-29-2020 Magnesium [Mass/Vol] 1.5 mg/dL Low 1.9-2.7 [facility] Comment on above: Order Comment: No: D o not add to previous draw Performed By: #### 0 0071, 40915 #### [facility] [address] [place] [address], [facility] PORTABLE CHEST 1 VIEWon 07-20 PORTABLE CHEST 1 VIEW [facility] Department of Radiology [address] [place] [id number] Patient Name: AUSTIN GOLDEN : 1940 Sex: F Age: Race: White Pt. Location: [id number] Patient Status: I Ordered Date: 07/29/2020 8:25:00 [...] atelectasis. Electronically signed: Emmanuel Armas. Transcribed by: [email or web address], User Resident: Electronically Signed by: EMMANUEL ARMAS @ 07/29/2020 09:41 AM Normal [facility] Comment on above: Order Comment: 12 ho urs post vitamin K administration/pre-procedure warfarin reversal No: Do not add to previous draw PROTHROMBIN TIMEon 0 INR Coag (PPP) [Relative time] 1.45 {INR} High 0.91-1.16 [facility] Comment on above: Order [...] CHEST 1995;108:231S-246S. Performed By: #### 0 0071, 61188 #### [facility] [address] [facility] [place] [address], [facility] PT Coag (PPP) [Time] 17.7 s High 12.3-14.8 [facility] Comment on above: Order Comment: No: D o not add to previous draw Result Comment: ALL RESULTS MUST BE INTERPRETED WITH RESPECT TO BLOOD DRAWING ARTIFACT OR DILUTION ERROR OF ANTICOAGULANT AT THE TIME OF SAMPLING. Performed By: #### 0 0071, 26319 #### [facility] [address] [place] [address], [facility] UFH HEPARIN ASSAYon 07-29-20 20 UNFRACTIONATED HEPARIN 0.89 IU/mL High 0.30-0.70 [facility] Comment on above: Result Comment: [place] roxaban and Apixaban will interfere with the anti Xa assay used to monitor UFH and LMWH. Performed By: #### 0 0071, 91987 #### [facility] [address] UNFRACTIONATED HEPARIN 0.78 IU/mL High 0.30-0.70 [facility] Comment on above: Result Comment: [place] roxaban and Apixaban will interfere with the anti Xa assay used to monitor UFH and LMWH. Performed By: #### 0 0071, 77466 #### [facility] [address] [facility] [place] [address], [facility] UNFRACTIONATED HEPARIN >1.00 Critically high 0.30-0.7 0 [facility] Comment on above: Order Comment: 12 ho urs post vitamin K administration/pre-procedure warfarin reversal No: Do not add to previous draw Result Comment: Aracelis roxaban and Apixaban will interfere with the anti Xa assay used to monitor UFH and LMWH. UFH=1.22 RESULTS CHECKED AND CALLED. ACCURATELY READ BACK BY SAEID RING RN @8930 Performed By: #### 5 6101 #### [facility] [address] [facility] [place] [address], [facility] BASIC METABOLIC PANELon 12- Calcium [Mass/Vol] 8.5 mg/dL Low 8.6-10.3 [facility] Comment on above: Order Comment: No: D o not add to previous draw Performed By: #### 0 0071 #### [facility] [address] [place] [address], [place] Chloride [Moles/Vol] 108 mmol/L High 98-107 [facility] Comment on above: Order Comment: No: D o not add to previous draw Performed By: #### 0 0071 #### [facility] [address] [place] [address], [place] CO2 [Moles/Vol] 24 mmol/L Normal 21-31 [facility] Comment on above: Order Comment: No: D o not add to previous draw Performed By: #### 0 0071 #### [facility] [address] [place] [address], [place] Creatinine [Mass/Vol] 1.03 mg/dL Normal 0.60-1.20 [facility] Comment on above: Order Comment: No: D o not add to previous draw Performed By: #### 0 0071 #### [facility] [address] [place] [address], [place] GFR/1.73 sq M predicted among blacks MDRD (S/P/Bld) [Vol rate/Area] mL/min/{1.73_m2} Normal >60 [facility] Comment on above: Order Comment: No: D o not add to previous draw Result Comment: Calc ulation may not be valid for patients over 70 years Performed By: #### 0 0071 #### [facility] [address] [place] [address], [place] GFR/1.73 sq M predicted among non-blacks MDRD (S/P/Bld) [Vol rate/Area] 52 ml/min/1.73sq m Abnormal >60 [facility] Comment on above: Order Comment: No: D o not add to previous draw Result Comment: Calc ulation may not be valid for patients over 70 years Performed By: #### 0 0071 #### [facility] [address] [place] [address], [place] Glucose [Mass/Vol] 120 mg/dL High 70-100 [facility] Comment on above: Order Comment: No: D o not add to previous draw Performed By: #### 0 0071 #### [facility] [address] [place] [address], [facility] Potassium [Moles/Vol] 3.7 mmol/L Normal 3.5-5.1 [facility] Comment on above: Order Comment: No: D o not add to previous draw Performed By: #### 0 0071 #### [facility] [address] [place] [address], [facility] Sodium [Moles/Vol] 141 mmol/L Normal 136-145 [facility] Comment on above: Order Comment: No: D o not add to previous draw Performed By: #### 0 0071 #### [facility] [address] [place] [address], [facility] Urea nitrogen [Mass/Vol] 24 mg/dL Normal 7-25 [facility] Comment on above: Order Comment: No: D o not add to previous draw Performed By: #### 0 0071 #### [facility] [address] CBC COMPLETE BLOOD COUNTon 1 09-28-2019 Erythrocyte distribution width (RBC) [Ratio] 16.9 % High 11.5-15.0 [facility] Comment on above: Order Comment: 12 ho urs post vitamin K administration/pre-procedure warfarin reversal No: Do not add to previous draw Performed By: #### 5 [id number] #### [facility] [address] [place] [address], [facility] Hematocrit (Bld) [Volume fraction] 40.8 % Normal 36.0-45.0 [facility] Comment on above: Order Comment: 12 ho urs post vitamin K administration/pre-procedure warfarin reversal No: Do not add to previous draw Performed By: #### 5 6101 #### [facility] [address] [place] [address], [facility] Hemoglobin (Bld) [Mass/Vol] 12.6 g/dL Normal 12.0-15.0 [facility] Comment on above: Order Comment: 12 ho urs post vitamin K administration/pre-procedure warfarin reversal No: Do not add to previous draw Performed By: #### 5 6101 #### [facility] [address] [place] [address], [facility] MCH (RBC) [Entitic mass] 28.5 pg Normal 27.0-33.0 [facility] Comment on above: Order Comment: 12 ho urs post vitamin K administration/pre-procedure warfarin reversal No: Do not add to previous draw Performed By: #### 5 6101 #### [facility] [address] [facility] [place] [id number], [facility] MCHC (RBC) [Mass/Vol] 30.9 g/dL Low 32.0-35.0 [facility] Comment on above: Order Comment: 12 ho urs post vitamin K administration/pre-procedure warfarin reversal No: Do not add to previous draw Performed By: #### 5 6101 #### [facility] [address] [place] [address], [facility] MCV (RBC) [Entitic vol] 92.3 fL Normal 82.0-98.0 [facility] Comment on above: Order Comment: 12 ho urs post vitamin K administration/pre-procedure warfarin reversal No: Do not add to previous draw Performed By: #### 5 6101 #### [facility] [address] [place] [address], [facility] Nucleated RBC/100 WBC (Bld) [Ratio] 1 % High 0-0 [facility] Comment on above: Order Comment: 12 ho urs post vitamin K administration/pre-procedure warfarin reversal No: Do not add to previous draw Performed By: #### 5 6101 #### [facility] [address] [place] [address], [facility] PLAT CNT 245 10*3/uL Normal 150-400 [facility] Comment on above: Order Comment: 12 ho urs post vitamin K administration/pre-procedure warfarin reversal No: Do not add to previous draw Performed By: #### 5 6101 #### [facility] [address] [place] [address], [facility] RBC (Bld) [#/Vol] 4.42 10*6/uL Normal 3.80-5.00 [facility] Comment on above: Order Comment: 12 ho urs post vitamin K administration/pre-procedure warfarin reversal No: Do not add to previous draw Performed By: #### 5 6101 #### [facility] [address] [place] [address], [facility] WBC (Bld) [#/Vol] 9.82 10*3/uL Normal 4.00-10.60 [facility] Comment on above: Order Comment: 12 ho urs post vitamin K administration/pre-procedure warfarin reversal No: Do not add to previous draw Performed By: #### 5 6101 #### [address] BRAIN WO CONTRASTon 07-28 CT BRAIN WO CONTRAST [facility] Department of Radiology [address] [place] [id number] Patient Name: AUSTIN GOLDEN : 1940 Sex: F Age: Race: White Pt. Location: [id number] Patient Status: I Ordered Date: 07/28/2020 4:35:00 PM Completed Date: 07/28/2020 04:43 PM Requesting Provider: ABHILASH GO Attending Provider: JELANI SORIA Report Copy To: Signs & Symptoms: stroke alert in labels [facility]older [facility] History: stroke alert in labels [facility] Comments: stroke alert in labels [facility] Exam: CT BRAIN WO CONTRAST CT BRAIN WO CONTRAST 07/28/2020 4:43 PM CLINICAL INDICATIONS: stroke alert in labels [facility] TECHNOLOGIST COMMENTS: left sided weakness QUESTION FOR THE RADIOLOGIST: stroke alert in labels molder post vira PROTOCOL: Axial CT images of [...] findings. Electronically signed: Sukhdev Javier. Transcribed by: [email or web address], User Resident: Electronically Signed by: SUKHDEV JAVIER @ 07/28/2020 04:48 PM Normal [facility] Comment on above: Order Comment: 12 ho urs post vitamin K administration/pre-procedure warfarin reversal No: Do not add to previous draw CTA HEADon 07-28-2020 CTA HEAD [facility] Department of Radiology [address] [place] [id number] Patient Name: AUSTIN GOLDEN : 1940 Sex: F Age: Race: White Pt. Location: [id number] Patient Status: I Ordered Date: 07/28/2020 4:35:00 PM Completed Date: 07/28/2020 05:11 PM Requesting Provider: ABHILASH GO Attending Provider: JELANI SORIA Report Copy To: Signs & Symptoms: stroke alert in labels molder post vira History: stroke alert in labels molder post vira Comments: stroke alert in labels molder post vira Exam: CTA HEAD CTA HEAD 07/28/2020 5:11 PM CLINICAL INDICATIONS: stroke alert in labels molder post vira TECHNOLOGIST COMMENTS: post vira stroke alert weakness QUESTION FOR THE RADIOLOGIST: stroke alert in labels molder post vira PROTOCOL: Axial CT angiography images [...] occlusion. Electronically signed: Sukhdev Javier. Transcribed by: [email or web address], User Resident: Electronically Signed by: SUKHDEV JAVIER @ 07/28/2020 05:16 PM Normal [facility] Comment on above: Order Comment: No: D o not add to previous draw CTA NECKon 07-28-2020 CTA NECK [facility] Department of Radiology [address] [place] [id number] Patient Name: AUSTIN GOLDEN : 1940 Sex: F Age: Race: White Pt. Location: [address] [place] [address] Patient Status: I Ordered Date: 07/28/2020 4:35:00 PM Completed Date: 07/28/2020 05:11 PM Requesting Provider: ABHILASH GO Attending Provider: JELANI SORIA Report Copy To: Signs & Symptoms: stroke alert in labels molder post vira History: stroke alert in labels molder post vira Comments: stroke alert in labels molder post vira Exam: CTA NECK CTA NECK 07/28/2020 5:11 PM CLINICAL INDICATIONS: stroke alert in labels molder post vira TECHNOLOGIST COMMENTS: post vira stroke alert weakness QUESTION FOR THE RADIOLOGIST: stroke alert in labels molder post vira PROTOCOL: Axial CT angiography images [...] achievable Electronically signed: Sukhdev Javier. Transcribed by: [email or web address], User Resident: Electronically Signed by: SUKHDEV JAVIER @ 07/28/2020 05:19 PM Normal [facility] Comment on above: Order Comment: No: D o not add to previous draw Cardiovascular Lab Reporton 07-28-2020 Cardiovascular Lab Report [facility] Patient Name: [facility] Maggy MR #: [id number] Department of Physician: Alfredo Ring MBahman Division of Service Date: 07/28/2020 Cardiology Birthdate: 1940 Adult Cardiovascular Room #: 3AB [id number] [place] [address] Cardiovascular Laboratory Report PROCEDURE PERFORMED: Transesophageal echocardiogram and cardioversion. INDICATION: Atrial fibrillation. FELLOW: Hiwot Owens M.D. PROCEDURE IN DETAIL: An informed consent was obtained from the patient after explaining indications, risks and benefits, and alternatives. The patient understood and agreed and signed the consent form. The patient was brought to the labels molder and transesophageal echocardiogram was performed under conscious [...] Owens MD Date Trans: 07/28/2020 04:12 P/boaz [id number] cc: Jazmin العلي D.O. [address] [place] [phone] [place] [facility] PROTHROMBIN TIMEon 0 INR Coag (PPP) [Relative time] 1.67 {INR} High 0.91-1.16 [facility] Comment on above: Order [...] CHEST 1995;108:231S-246S. Performed By: #### 0 0071, [id number] #### [facility] [address] [facility]. [address] PT Coag (PPP) [Time] 19.7 s High 12.3-14.8 [facility] Comment on above: Order Comment: No: D o not add to previous draw Result Comment: ALL RESULTS MUST BE INTERPRETED WITH RESPECT TO BLOOD DRAWING ARTIFACT OR DILUTION ERROR OF ANTICOAGULANT AT THE TIME OF SAMPLING. Performed By: #### 0 0071, [id number] #### [facility] [address] INR Coag (PPP) [Relative time] 1.85 {INR} High 0.91-1.16 [facility] Comment on above: Order [...] 1995;108:231S-246S. Performed By: #### 5 6101 #### [facility] [address] [place] [address], [facility] PT Coag (PPP) [Time] 21.4 s High 12.3-14.8 [facility] Comment on above: Order Comment: 12 ho urs post vitamin K administration/pre-procedure warfarin reversal No: Do not add to previous draw Result Comment: ALL RESULTS MUST BE INTERPRETED WITH RESPECT TO BLOOD DRAWING ARTIFACT OR DILUTION ERROR OF ANTICOAGULANT AT THE TIME OF SAMPLING. Performed By: #### 5 6101 #### [facility] [address] [facility] [address] UFH HEPARIN ASSAYon 07-28-20 20 UNFRACTIONATED HEPARIN >1.00 Critically high 0.30-0.7 0 [facility] Comment on above: Result Comment: [place] roxaban and Apixaban will interfere with the anti Xa assay used to monitor UFH and LMWH. Results called. Accurately read back by Khushbu Shetty RN at 1415. Patient given a bolus of heparin prior to draw, causing elevated heparin levels Performed By: #### 5 [id number] #### [facility] [address] [place] [address], [facility] UNFRACTIONATED HEPARIN 0.38 IU/mL Normal 0.30-0.70 [facility] Comment on above: Result Comment: [place] roxaban and Apixaban will interfere with the anti Xa assay used to monitor UFH and LMWH. Performed By: #### 0 0071, 99391 #### [facility] [address] [place] [address], [facility] APTTon 07-27-2020 aPTT Coag (Bld) [Time] 39.6 s High 25.0-35.0 [facility] Comment on above: Order [...] THIS PURPOSE. Performed By: #### 5 3629, 59303, 05651 #### [facility] [address] [place] [address], [facility] aPTT Coag (Bld) [Time] 47.4 s High 25.0-35.0 [facility] Comment on above: Result [...] PURPOSE. Performed By: #### 5 6101 #### [facility] [address] [facility]. [address] LIPID PROFILEon 07-27-2020 Cholesterol [Mass/Vol] 173 mg/dL Normal 120-200 [facility] Comment on above: Result Comment: CHOL ESTEROL REFERENCE RANGE: 20 YEARS AND OLDER CARDIOVASCULAR RISK Less than 200 mg/dl Low Risk 200 to 239 mg/dl Borderline Risk 240 mg/dl and greater High Risk Performed By: #### 5 3629, 55021, 76378 #### [facility] [address] [facility] [place] [place] [address], [facility] Cholesterol in HDL [Mass/Vol] 33 mg/dL Normal 23-92 [facility] Comment on above: Result Comment: Slig ht variation in normal range could be due to gender and/or age. HDL CHOLESTEROL REFERENCE RANGE: 20 years and older Cardiovascular Risk > or =60 mg/dL Desirable 40 TO 59 mg/dL Low Risk <40 mg/dL High Risk Performed By: #### 5 3629, 93046, 60753 #### [facility] [address] [facility] [place] [place] [address], [facility] Cholesterol in LDL [Mass/Vol] 98 mg/dL Normal 0-130 [facility] Comment on above: Result Comment: LDL IS A CALCULATION LDL IS ONLY VALID IF THE TRIG IS LESS THAN 400. Performed By: #### 5 3629, 53236, 08471 #### [facility] [address] [place] [address], [facility] Cholesterol.total/Chol esterol in HDL [Mass ratio] 5.2 {ratio} High 0.0-4.5 [facility] Comment on above: Performed By: #### 5 3629, 57206, 24085 #### [facility] [address] [place] [address], [facility] NON-HDL CHOLESTEROL 140 mg/dL Normal [facility] Comment on above: Performed By: #### 5 3629, 69269, 06472 #### [facility] [address] Triglyceride [Mass/Vol] 210 mg/dL High 40-149 [facility] Comment on above: Result Comment: TRIG LYCERIDE REFERENCE RANGE: 20 YEARS AND OLDER CARDIOVASCULAR RISK LESS THAN 150 mg/dl LOW RISK 150 TO 199 mg/dl BORDERLINE RISK 200 mg/dl AND GREATER HIGH RISK Performed By: #### 5 3629, 34854, 85775 #### [facility] [address] [place] [address], [facility] VLDL CHOL 42 mg/dL High 0-40 [facility] Comment on above: Performed By: #### 5 3629, 98211, 46200 #### [facility] [address] [place] [address], [facility] PROTHROMBIN TIMEon 07-27- 0 INR Coag (PPP) [Relative time] 2.07 {INR} High 0.91-1.16 [facility] Comment on above: [...] CHEST 1995;108:231S-246S. Performed By: #### 5 3629, 86168, 40163 #### [facility] [address] [place] [address], [facility] PT Coag (PPP) [Time] 23.4 s High 12.3-14.8 [facility] Comment on above: Result Comment: ALL RESULTS MUST BE INTERPRETED WITH RESPECT TO BLOOD DRAWING ARTIFACT OR DILUTION ERROR OF ANTICOAGULANT AT THE TIME OF SAMPLING. Performed By: #### 5 3629, 83973, 74039 #### [facility] [address] [place] [address], [facility] INR Coag (PPP) [Relative time] 3.07 {INR} High 0.91-1.16 [facility] Comment on above: Order [...] 1995;108:231S-246S. Performed By: #### 5 6101 #### [facility] [address] [facility]. [address] PT Coag (PPP) [Time] 32.0 s High 12.3-14.8 [facility] Comment on above: Order Comment: 12 ho urs post vitamin K administration/pre-procedure warfarin reversal No: Do not add to previous draw Result Comment: ALL RESULTS MUST BE INTERPRETED WITH RESPECT TO BLOOD DRAWING ARTIFACT OR DILUTION ERROR OF ANTICOAGULANT AT THE TIME OF SAMPLING. Performed By: #### 5 6101 #### [facility] [address] [facility] [place] [address], [facility] TROPONIN-Ion 07-27-2020 Troponin I.cardiac [Mass/Vol] 0.01 ng/mL Normal 0.00-0.04 [facility] Comment on above: Order Comment: No: D o not add to previous draw Result Comment: REFE RENCE RANGES: 0.00 - 0.04 ng/ml NORMAL 0.05 - 0.50 ng/ml INDETERMINATE > 0.50 ng/ml CONSISTENT WITH AN M.I. Performed By: #### 5 3629, 68076, 96632 #### [facility] [address] [facility] [place] [address], [facility] UFH HEPARIN ASSAYon 07-27-20 20 UNFRACTIONATED HEPARIN <0.10 Critically low 0.30-0.70 [facility] Comment on above: Result Comment: [place] roxaban and Apixaban will interfere with the anti Xa assay used to monitor UFH and LMWH. RESULTS CHECKED AND CALLED. ACCURATELY READ BACK BY Saeid Lees RN at 2122. Performed By: #### 5 3629, 19972, 87684 #### [facility] [address] [place] [address], [facility] APTTon 07-26-2020 aPTT Coag (Bld) [Time] 44.0 s High 25.0-35.0 [facility] Comment on above: Order [...] THIS PURPOSE. Performed By: #### 5 3629, 64558, 93348 #### [facility] [address] [place] [address], [facility] BASIC METABOLIC PANELon Calcium [Mass/Vol] 8.4 mg/dL Low 8.6-10.3 [facility] Comment on above: Order Comment: No: D o not add to previous draw Performed By: #### 5 3629, 70676, 56840 #### [facility] [address] [place] [address], [facility] Chloride [Moles/Vol] 107 mmol/L Normal 98-107 [facility] Comment on above: Order Comment: No: D o not add to previous draw Performed By: #### 5 3629, 70367, 21993 #### [facility] [address] [place] [address], [facility] CO2 [Moles/Vol] 23 mmol/L Normal 21-31 [facility] Comment on above: Order Comment: No: D o not add to previous draw Performed By: #### 5 3629, 01770, 11115 #### [facility] [address] [place] [address], [place] Creatinine [Mass/Vol] 1.00 mg/dL Normal 0.60-1.20 [facility] Comment on above: Order Comment: No: D o not add to previous draw Performed By: #### 5 3629, 71710, 18558 #### [facility] [address] [place] [address], [place] GFR/1.73 sq M predicted among blacks MDRD (S/P/Bld) [Vol rate/Area] mL/min/{1.73_m2} Normal >60 [facility] Comment on above: Order Comment: No: D o not add to previous draw Result Comment: Calc ulation may not be valid for patients over 70 years Performed By: #### 5 3629, 82926, 47712 #### [facility] [address] [place] [address], [place] GFR/1.73 sq M predicted among non-blacks MDRD (S/P/Bld) [Vol rate/Area] 53 ml/min/1.73sq m Abnormal >60 [facility] Comment on above: Order Comment: No: D o not add to previous draw Result Comment: Calc ulation may not be valid for patients over 70 years Performed By: #### 5 3629, 51913, 55265 #### [facility] [address] [place] [address], [place] Glucose [Mass/Vol] 144 mg/dL High 70-100 [facility] Comment on above: Order Comment: No: D o not add to previous draw Performed By: #### 5 3629, 52216, 36009 #### [facility] [address] [place] [address], [place] Potassium [Moles/Vol] 3.9 mmol/L Normal 3.5-5.1 [facility] Comment on above: Order Comment: No: D o not add to previous draw Performed By: #### 5 3629, 65873, 99425 #### [facility] [address] [place] [address], [place] Sodium [Moles/Vol] 139 mmol/L Normal 136-145 [facility] Comment on above: Order Comment: No: D o not add to previous draw Performed By: #### 5 3629, 60787, 08481 #### [facility] [address] Urea nitrogen [Mass/Vol] 24 mg/dL Normal 7-25 [facility] Comment on above: Order Comment: No: D o not add to previous draw Performed By: #### 5 3629, 00980, 24791 #### [facility] [address] BNP (B-TYPE NATRIURETIC PEPT BALTA)on 07-26-2020 Natriuretic peptide B (Bld) [Mass/Vol] 259 pg/mL High 0-100 [facility] Comment on above: Order Comment: No: D o not add to previous draw Result Comment: Give n the appropriate clinical setting a BNP result of >100 pg/mL indicates congestive heart failure. Performed By: #### 5 3629, 41413, 71839 #### [facility] [address] CBC W/DIFFon 07-26-2020 ABS BASOPHILS 0.1 10*3/uL Normal 0.0-0.2 [facility] Comment on above: Order Comment: 12 ho urs post vitamin K administration/pre-procedure warfarin reversal No: Do not add to previous draw Performed By: #### 5 6101 #### [facility] [address] ABS IMM GRANS 0.3 10*3/uL High 0.0-0.2 [facility] Comment on above: Order Comment: 12 ho urs post vitamin K administration/pre-procedure warfarin reversal No: Do not add to previous draw Performed By: #### 5 6101 #### [facility] [address] ABS NEUTROPHILS 5.9 10*3/uL Normal 1.6-7.6 [facility] Comment on above: Order Comment: 12 ho urs post vitamin K administration/pre-procedure warfarin reversal No: Do not add to previous draw Performed By: #### 5 6101 #### [facility] [address] [place] [address], [facility] Basophils/100 WBC (Bld) 0.8 % Normal 0.0-1.0 [facility] Comment on above: Order Comment: 12 ho urs post vitamin K administration/pre-procedure warfarin reversal No: Do not add to previous draw Performed By: #### 5 6101 #### [facility] [address] [place] [address], [facility] Eosinophils (Bld) [#/Vol] 0.4 10*3/uL Normal 0.0-0.5 [facility] Comment on above: Order Comment: 12 ho urs post vitamin K administration/pre-procedure warfarin reversal No: Do not add to previous draw Performed By: #### 5 6101 #### [facility] [address] [place] [address], [facility] Eosinophils/100 WBC (Bld) 3.8 % Normal 0.0-6.0 [facility] Comment on above: Order Comment: 12 ho urs post vitamin K administration/pre-procedure warfarin reversal No: Do not add to previous draw Performed By: #### 5 6101 #### [facility] [address] [place] [address], [facility] Erythrocyte distribution width (RBC) [Ratio] 16.9 % High 11.5-15.0 [facility] Comment on above: Order Comment: 12 ho urs post vitamin K administration/pre-procedure warfarin reversal No: Do not add to previous draw Performed By: #### 5 6101 #### [facility] [address] [place] [address], [facility] Hematocrit (Bld) [Volume fraction] 43.8 % Normal 36.0-45.0 [facility] Comment on above: Order Comment: 12 ho urs post vitamin K administration/pre-procedure warfarin reversal No: Do not add to previous draw Performed By: #### 5 6101 #### [facility] [address] [place] [address], [facility] Hemoglobin (Bld) [Mass/Vol] 13.7 g/dL Normal 12.0-15.0 [facility] Comment on above: Order Comment: 12 ho urs post vitamin K administration/pre-procedure warfarin reversal No: Do not add to previous draw Performed By: #### 5 6101 #### [facility] [address] [place] [address], [facility] IMMATURE GRANS 3.6 % High 0.0-1.0 [facility] Comment on above: Order Comment: 12 ho urs post vitamin K administration/pre-procedure warfarin reversal No: Do not add to previous draw Performed By: #### 5 6101 #### [facility] [address] [facility] [place] [address], [facility] Lymphocytes (Bld) [#/Vol] 2.1 10*3/uL Normal 1.2-4.0 [facility] Comment on above: Order Comment: 12 ho urs post vitamin K administration/pre-procedure warfarin reversal No: Do not add to previous draw Performed By: #### 5 6101 #### [facility] [address] [facility] [place] [address], [facility] Lymphocytes/100 WBC (Bld) 22.0 % Normal 20.0-45.0 [facility] Comment on above: Order Comment: 12 ho urs post vitamin K administration/pre-procedure warfarin reversal No: Do not add to previous draw Performed By: #### 5 6101 #### [facility] [address] [place] [address], [facility] MCH (RBC) [Entitic mass] 29.0 pg Normal 27.0-33.0 [facility] Comment on above: Order Comment: 12 ho urs post vitamin K administration/pre-procedure warfarin reversal No: Do not add to previous draw Performed By: #### 5 6101 #### [facility] [address] [place] [address], [facility] MCHC (RBC) [Mass/Vol] 31.3 g/dL Low 32.0-35.0 [facility] Comment on above: Order Comment: 12 ho urs post vitamin K administration/pre-procedure warfarin reversal No: Do not add to previous draw Performed By: #### 5 6101 #### [facility] [address] [place] [address], [facility] MCV (RBC) [Entitic vol] 92.6 fL Normal 82.0-98.0 [facility] Comment on above: Order Comment: 12 ho urs post vitamin K administration/pre-procedure warfarin reversal No: Do not add to previous draw Performed By: #### 5 6101 #### [facility] [address] [place] [address], [facility] Monocytes (Bld) [#/Vol] 0.7 10*3/uL Normal 0.1-1.0 [facility] Comment on above: Order Comment: 12 ho urs post vitamin K administration/pre-procedure warfarin reversal No: Do not add to previous draw Performed By: #### 5 6101 #### [facility] [address] [place] [address], [facility] MONOS 7.5 % Normal 5.0-12.0 [facility] Comment on above: Order Comment: 12 ho urs post vitamin K administration/pre-procedure warfarin reversal No: Do not add to previous draw Performed By: #### 5 6101 #### [facility] [address] [place] [address], [facility] Neutrophils/100 WBC (Bld) 62.3 % Normal 40.0-72.0 [facility] Comment on above: Order Comment: 12 ho urs post vitamin K administration/pre-procedure warfarin reversal No: Do not add to previous draw Performed By: #### 5 6101 #### [facility] [address] [place] [address], [place] Nucleated RBC/100 WBC (Bld) [Ratio] 1 % High 0-0 [facility] Comment on above: Order Comment: 12 ho urs post vitamin K administration/pre-procedure warfarin reversal No: Do not add to previous draw Performed By: #### 5 6101 #### [facility] [address] [place] [address], [facility] PLAT CNT 296 10*3/uL Normal 150-400 [facility] Comment on above: Order Comment: 12 ho urs post vitamin K administration/pre-procedure warfarin reversal No: Do not add to previous draw Performed By: #### 5 6101 #### [facility] [address] [place] [address], [facility] RBC (Bld) [#/Vol] 4.73 10*6/uL Normal 3.80-5.00 [facility] Comment on above: Order Comment: 12 ho urs post vitamin K administration/pre-procedure warfarin reversal No: Do not add to previous draw Performed By: #### 5 [id number] #### [facility] [address] WBC (Bld) [#/Vol] 9.48 10*3/uL Normal 4.00-10.60 [facility] Comment on above: Order Comment: 12 ho urs post vitamin K administration/pre-procedure warfarin reversal No: Do not add to previous draw Performed By: #### 5 6101 #### [facility] [address] CPK-MB PROFILEon 07-26-2020 CK [Catalytic activity/Vol] 24 U/L Low 30-223 [facility] Comment on above: Order Comment: No: D o not add to previous draw Performed By: #### 1 0070, 47906, 41570, 14156, 51066, 68965 #### [facility] [address] CK.MB [Mass/Vol] 1.5 ng/mL Normal 0.0-5.0 [facility] Comment on above: Order Comment: No: D o not add to previous draw Result Comment: IF T OTAL CK <200 U/L AND: 1. CKMB IS 5-10 NG/ML----BORDERLINE 2. CKMB IS >10 NG/ML----INDICATIVE OF [place] OR IF TOTAL CK >200 U/L AND CKMB INDEX >1.9----INDICATIVE OF [place] Performed By: #### 1 0070, 73818, 63034, 95108, 19045, 16480 #### [facility] [address] CK.MB [Mass/Vol] 6.3 ng/mL Critically high 0.0-1.9 [facility] Comment on above: Order Comment: No: D o not add to previous draw Performed By: #### 1 0070, 06972, 28147, 67588, 27055, 95747 #### [facility] [address] D DIMER TESTon 07-26-2020 D-DIMER TEST 2.34 mcg/mL FEU High 0.27-0.49 [facility] Comment on above: Order Comment: No: D o not add to previous draw Result Comment: D-Di ricky values of less than 0.50 ug/ml (FEU) are considered to be a negative predictor of thrombosis. However, the D-Dimer result should be used in conjunction with pretest probability and should not be used alone to diagnose a thrombotic event. Performed By: #### 5 3629, 00399, 38201 #### [facility] [facility] [address] History and Physicalon 07-26 History and Physical MR#: [id number] [facility] Pt. Name: Austin Golden Admitted: 07/26/2020 Date of : 1940 Attending Physician: Jaqueline Quevedo M.D. Room #: [id number] Discharge Date: HISTORY AND PHYSICAL CHIEF COMPLAINT: Shortness of breath. HISTORY OF PRESENT ILLNESS: The patient is a 79-year-old female with a past medical history of atrial fibrillation, on Coumadin, fibromyalgia, hypertension, and history of COVID at the beginning of June, presented to [facility] as a direct transfer from [facility] ER. The patient presented to [...] and mood. LABORATORY DATA: From [facility] ER shows white blood cells [...] and GI prophylaxis. 7. PT, OT, and Operations And Maintenance Technican for discharge planning. Electronically Signed by: Jaqueline Quevedo M.D. 07/27/2020 10:46 A Jaqueline Quevedo M.D. Date Dict: 07/26/2020/06:24 P/Jaqueline Quevedo M.D. Date Trans: 07/26/2020 07:50 P/mmo [id number] Normal [facility] LIVER BATTERYon 07-26-2020 Albumin [Mass/Vol] 3.4 g/dL Low 3.5-5.7 [facility] Comment on above: Order Comment: No: D o not add to previous draw Performed By: #### 5 [id number], [id number] #### [facility] [address] [place] [address], [place] ALKALINE PHOSPH 82 IU/L Normal 34-104 [facility] Comment on above: Order Comment: No: D o not add to previous draw Performed By: #### 5 [id number], [id number], [id number] #### [facility] [address] [place] [address], [place] ALT [Catalytic activity/Vol] 28 U/L Normal 7-52 [facility] Comment on above: Order Comment: No: D o not add to previous draw Performed By: #### 5 [id number], [id number], [id number] #### [facility] [address] [place] [address], [place] AST [Catalytic activity/Vol] 26 U/L Normal 13-39 [facility] Comment on above: Order Comment: No: D o not add to previous draw Performed By: #### 5 [id number], [id number], [id number] #### [facility] [address] [place] [address], [place] Bilirubin [Mass/Vol] 0.6 mg/dL Normal 0.3-1.0 [facility] Comment on above: Order Comment: No: D o not add to previous draw Performed By: #### 5 [id number], 13722, [id number] #### [facility] [address] [place] [address], [place] Bilirubin.direct [Mass/Vol] 0.2 mg/dL Normal 0.0-0.2 [facility] Comment on above: Order Comment: No: D o not add to previous draw Performed By: #### 5 362, [id number], [id number] #### [facility] [address] [facility] Protein [Mass/Vol] 5.8 g/dL Low 6.0-8.3 [facility] Comment on above: Order Comment: No: D o not add to previous draw Performed By: #### 5 [id number], 56210, 32274 #### [facility] [address] MAGNESIUM BLOODon 07-26-2020 Magnesium [Mass/Vol] 1.8 mg/dL Low 1.9-2.7 [facility] Comment on above: Order Comment: No: D o not add to previous draw Performed By: #### 5 [id number], 47487, 31752 #### [facility] [address] [facility] PHOSPHORUS BLOODon 0 Phosphate [Mass/Vol] 3.4 mg/dL Normal 2.5-5.0 [facility] Comment on above: Order Comment: No: D o not add to previous draw Performed By: #### 5 [id number], 68304, 63019 #### [facility] [address] PROTHROMBIN TIMEon 0 INR Coag (PPP) [Relative time] 3.23 {INR} High 0.91-1.16 [facility] Comment on above: Order [...] CHEST 1995;[id number]. Performed By: #### 5 3629, 31452, 92705 #### [facility] [address] PT Coag (PPP) [Time] 33.3 s High 12.3-14.8 [facility] Comment on above: Order Comment: No: D o not add to previous draw Result Comment: ALL RESULTS MUST BE INTERPRETED WITH RESPECT TO BLOOD DRAWING ARTIFACT OR DILUTION ERROR OF ANTICOAGULANT AT THE TIME OF SAMPLING. Performed By: #### 5 [id number], 63186, [id number] #### [facility] [address] TROPONIN-Ion 07-26-2020 Troponin I.cardiac [Mass/Vol] 0.01 ng/mL Normal 0.00-0.04 [facility] Comment on above: Order Comment: No: D o not add to previous draw Result Comment: REFE RENCE RANGES: 0.00 - 0.04 ng/ml NORMAL 0.05 - 0.50 ng/ml INDETERMINATE > 0.50 ng/ml CONSISTENT WITH AN M.I. Performed By: #### 5 [id number], 62304, 52783 #### [facility] [address] Vital Signs Date Time Vital Sign Value Performing Clinician Facility 05-28-2025 08:12-0400 Body temperature 35.71 [degF] Maxwell Medrano MD Work Phone: [facility] 05-28-2025 08:02-0400 Body height 149.9 cm Maxwell Medrano MD Work Phone: [facility] 05-28-2025 08:02-0400 Body mass index (BMI) [Ratio] 27.87 kg/m2 Maxwell Medrano MD Work Phone: [facility] 05-28-2025 08:02-0400 Body weight 62.6 kg Maxwell Medrano MD Work Phone: [facility] 05-28-2025 08:02-0400 Diastolic blood pressure 85 mm[Hg] Maxwell Medrano MD Work Phone: [facility] 05-28-2025 08:02-0400 Heart rate 97 /min Maxwell Medrano MD Work Phone: [facility] 05-28-2025 08:02-0400 Respiratory rate 16 /min Maxwell Medrano MD Work Phone: [facility] 05-28-2025 08:02-0400 SaO2% (BldA) [Mass fraction] 94 % Maxwell Medrano MD Work Phone: [facility] 05-28-2025 08:02-0400 Systolic blood pressure 158 mm[Hg] Maxwell Medrano MD Work Phone: [facility] 05-27-2025 11:58-0400 Body height 149.86 cm Jazmin Ball DO Work Phone: [facility] 05-27-2025 11:58-0400 Body mass index (BMI) [Ratio] 27.8 kg/m2 Jazmin Ball DO Work Phone: [facility] 05-27-2025 11:58-0400 Body weight 62.59 kg Jazmin Ball DO Work Phone: [facility] 05-27-2025 11:58-0400 Diastolic blood pressure 71 mm[Hg] Jazmin Ball DO Work Phone: [facility] 05-27-2025 11:58-0400 Heart rate 105 /min Jazmin Ball DO Work Phone: [facility] 05-27-2025 11:58-0400 Systolic blood pressure 121 mm[Hg] Jazmin Ball DO Work Phone: [facility] 05-26-2025 14:57-0400 Body height 149.9 cm Debbie Mac MD Work Phone: [facility] 05-26-2025 14:57-0400 Body mass index (BMI) [Ratio] 28.07 kg/m2 Debbie Mac MD Work Phone: [facility] 05-26-2025 14:57-0400 Body weight 63.05 kg Debbie Mac MD Work Phone: [facility] 05-26-2025 14:57-0400 Diastolic blood pressure 62 mm[Hg] Debbie Mac MD Work Phone: [facility] 05-26-2025 14:57-0400 Heart rate 97 /min Debbie Mac MD Work Phone: [facility] 05-26-2025 14:57-0400 Systolic blood pressure 100 mm[Hg] Debbie Mac MD Work Phone: [facility] 05-18-2025 12:06-0400 Body height 149.86 cm Jazmin Ball DO Work Phone: [facility] 05-18-2025 12:06-0400 Body mass index (BMI) [Ratio] 26.7 kg/m2 Jazmin Ball DO Work Phone: [facility] 05-18-2025 12:06-0400 Body weight 60.1 kg Jazmin Ball DO Work Phone: [facility] 05-18-2025 12:06-0400 Diastolic blood pressure 68 mm[Hg] Jazmin Ball DO Work Phone: [facility] 05-18-2025 12:06-0400 Heart rate 112 /min Jazmin Ball DO Work Phone: [facility] 05-18-2025 12:06-0400 Inhaled oxygen flow rate 97 L/min Jazmin Ball DO Work Phone: [facility] 05-18-2025 12:06-0400 Respiratory rate 20 /min Jazmin Ball DO Work Phone: [facility] 05-18-2025 12:06-0400 Systolic blood pressure 102 mm[Hg] Jazmin Ball DO Work Phone: [facility] 05-07-2025 15:00-0400 Body height 149.9 cm Joseph Sepulveda DPM Work Phone: [facility] 05-07-2025 15:00-0400 Body mass index (BMI) [Ratio] 24.44 kg/m2 Joseph Sepulveda DPM Work Phone: [facility] 05-07-2025 15:00-0400 Body weight 54.88 kg Joseph Sepulveda DPM Work Phone: [facility] 05-07-2025 15:00-0400 Respiratory rate 16 /min Joseph Sepulveda DPM Work Phone: [facility] 04-30-2025 16:13-0400 Body height 149.9 cm Joseph Sepulveda DPM Work Phone: [facility] 04-30-2025 16:13-0400 Body mass index (BMI) [Ratio] 24.44 kg/m2 Joseph Sepulveda DPM Work Phone: [facility] 04-30-2025 16:13-0400 Body weight 54.88 kg Joseph Sepulveda DPM Work Phone: [facility] 04-30-2025 16:13-0400 Respiratory rate 18 /min Joseph Sepulveda DPM Work Phone: [facility] 02-23-2025 15:07-0400 Body mass index (BMI) [Ratio] 26.26 kg/m2 Cristiana Chapa APRN-CONTINUOUS STILL OPERATOR Work Phone: [facility] 02-23-2025 15:07-0400 Body weight 58.97 kg Cristiana Chapa APRN-CONTINUOUS STILL OPERATOR Work Phone: [facility] 02-23-2025 15:07-0400 Diastolic blood pressure 60 mm[Hg] Cristiana Chapa COUNTER POCKET SEWER-CONTINUOUS STILL OPERATOR Work Phone: [facility] 02-23-2025 15:07-0400 Heart rate 69 /min Cristiana Chapa COUNTER POCKET SEWER-CONTINUOUS STILL OPERATOR Work Phone: [facility] 02-23-2025 15:07-0400 Systolic blood pressure 122 mm[Hg] Cristiana Chapa COUNTER POCKET SEWER-CONTINUOUS STILL OPERATOR Work Phone: [facility] 02-12-2025 10:31-0400 Body height 149.9 cm Joseph Sepulveda DPM Work Phone: [facility] 02-12-2025 10:31-0400 Body mass index (BMI) [Ratio] 24.44 kg/m2 Joseph Brown DPM Work Phone: [facility] 02-12-2025 10:31-0400 Body weight 54.88 kg Joseph Mu DPM Work Phone: [facility] 02-12-2025 10:31-0400 Respiratory rate 18 /min Joseph Sepulveda DPM Work Phone: [facility] 01-23-2025 15:02-0400 Body temperature 97.9 [degF] Jazmin Ball DO Work Phone: [facility] 01-23-2025 15:02-0400 Diastolic blood pressure 68 mm[Hg] Jazmin Ball DO Work Phone: [facility] 01-23-2025 15:02-0400 Heart rate 102 /min Jazmin Ball DO Work Phone: [facility] 01-23-2025 15:02-0400 Respiratory rate 18 /min Jazmin Ball DO Work Phone: [facility] 01-23-2025 15:02-0400 SaO2% (BldA) [Mass fraction] 96 % Jazmin Ball DO Work Phone: [facility] 01-23-2025 15:02-0400 Systolic blood pressure 106 mm[Hg] Jazmin Ball DO Work Phone: [facility] 01-23-2025 05:19-0400 Inhaled oxygen flow rate 2 L/min Jazmin Ball DO Work Phone: [facility] 01-23-2025 03:36-0400 Body weight 58.2 kg Jazmin Ball DO Work Phone: [facility] 01-23-2025 00:21-0400 Body height 149.86 cm Jazmin Ball DO Work Phone: [facility] 01-23-2025 00:00-0400 Inhaled oxygen flow rate 2 L/min Jazmin Ball DO Work Phone: [facility] 01-22-2025 23:25-0400 Diastolic blood pressure 63 mm[Hg] Jazmin Ball DO Work Phone: [facility] 01-22-2025 23:25-0400 Heart rate 120 /min Jazmin Ball DO Work Phone: [facility] 01-22-2025 23:25-0400 Respiratory rate 22 /min Jazmin Ball DO Work Phone: [facility] 01-22-2025 23:25-0400 SaO2% (BldA) [Mass fraction] 96 % Jazmin Ball DO Work Phone: [facility] 01-22-2025 23:25-0400 Systolic blood pressure 106 mm[Hg] Jazmin Ball DO Work Phone: [facility] 01-22-2025 18:17-0400 Body temperature 97.7 [degF] Jazmin Ball DO Work Phone: [facility] 01-22-2025 18:15-0400 Body height 149.86 cm Jazmin Ball DO Work Phone: [facility] 01-22-2025 18:15-0400 Body weight 58.7 kg Jazmin Ball DO Work Phone: [facility] 01-21-2025 13:38-0400 Body height 149.86 cm [facility] 01-21-2025 13:38-0400 Body mass index (BMI) [Ratio] 26.5 kg/m2 [facility] 01-21-2025 13:38-0400 Body weight 59.59 kg [facility] 01-21-2025 13:38-0400 Diastolic blood pressure 82 mm[Hg] [facility] 01-21-2025 13:38-0400 Heart rate 116 /min [facility] 01-21-2025 13:38-0400 Respiratory rate 12 /min [facility] 01-21-2025 13:38-0400 SaO2% (BldA) [Mass fraction] 95 % [facility] 01-21-2025 13:38-0400 Systolic blood pressure 135 mm[Hg] [facility] 01-09-2025 14:29-0400 Body height 149.86 cm [facility] 01-09-2025 14:29-0400 Body mass index (BMI) [Ratio] 25.9 kg/m2 [facility] 01-09-2025 14:29-0400 Body weight 58.17 kg [facility] 01-09-2025 14:29-0400 Diastolic blood pressure 82 mm[Hg] [facility] 01-09-2025 14:29-0400 Heart rate 73 /min [facility] 01-09-2025 14:29-0400 Respiratory rate 12 /min [facility] 01-09-2025 14:29-0400 SaO2% (BldA) [Mass fraction] 97 % [facility] 01-09-2025 14:29-0400 Systolic blood pressure 132 mm[Hg] [facility] 12-08-2024 11:14-0400 Diastolic blood pressure 52 mm[Hg] Nigel El MD Work Phone: [facility] 12-08-2024 11:14-0400 Heart rate 95 /min Nigel El MD Work Phone: [facility] 12-08-2024 11:14-0400 Respiratory rate 18 /min Nigel El MD Work Phone: [facility] 12-08-2024 11:14-0400 SaO2% (BldA) [Mass fraction] 95 % Nigel El MD Work Phone: [facility] 12-08-2024 11:14-0400 Systolic blood pressure 126 mm[Hg] Nigel El MD Work Phone: [facility] 12-08-2024 10:52-0400 Body temperature 97.7 [degF] Nigel El MD Work Phone: [facility] 10-23-2024 11:28-0500 Body height 149.9 cm Maxwell Medrano MD Work Phone: [facility] 10-23-2024 11:28-0500 Body mass index (BMI) [Ratio] 27.59 kg/m2 Maxwell Medrano MD Work Phone: [facility] 10-23-2024 11:28-0500 Body weight 61.96 kg Maxwell Medrano MD Work Phone: [facility] 10-23-2024 11:28-0500 Diastolic blood pressure 60 mm[Hg] Maxwell Medrano MD Work Phone: [facility] 10-23-2024 11:28-0500 Heart rate 71 /min Maxwell Medrano MD Work Phone: [facility] 10-23-2024 11:28-0500 Systolic blood pressure 120 mm[Hg] Maxwell Medrano MD Work Phone: [facility] 10-06-2024 15:27-0500 Body height 149.86 cm Jazmin Ball DO Work Phone: [facility] 10-06-2024 15:27-0500 Body mass index (BMI) [Ratio] 26.9 kg/m2 Jazmin Ball DO Work Phone: [facility] 10-06-2024 15:27-0500 Body weight 60.32 kg Jazmin Ball DO Work Phone: [facility] 10-06-2024 15:27-0500 Diastolic blood pressure 74 mm[Hg] Jazmin Ball DO Work Phone: [facility] 10-06-2024 15:27-0500 Heart rate 88 /min Jazmin Ball DO Work Phone: [facility] 10-06-2024 15:27-0500 SaO2% (BldA) [Mass fraction] 97 % Jazmin Ball DO Work Phone: [facility] 10-06-2024 15:27-0500 Systolic blood pressure 122 mm[Hg] Jazmin Ball DO Work Phone: [facility] 09-12-2024 13:30-0500 Diastolic blood pressure 79 mm[Hg] Jazmin Ball DO Work Phone: [facility] 09-12-2024 13:30-0500 Heart rate 112 /min Jazmin Ball DO Work Phone: [facility] 09-12-2024 13:30-0500 Respiratory rate 18 /min Jazmin Ball DO Work Phone: [facility] 09-12-2024 13:30-0500 Systolic blood pressure 125 mm[Hg] Jazmin Ball DO Work Phone: [facility] 09-12-2024 12:34-0500 SaO2% (BldA) [Mass fraction] 92 % Jazmin Ball DO Work Phone: [facility] 09-12-2024 11:17-0500 Body height 149.86 cm Jazmin Ball DO Work Phone: [facility] 09-12-2024 11:17-0500 Body temperature 97.4 [degF] Jazmin Ball DO Work Phone: [facility] 09-12-2024 11:17-0500 Body weight 64.3 kg Jazmin Ball DO Work Phone: [facility] 09-09-2024 15:11-0500 Body height 149.86 cm Jazmin Ball DO Work Phone: [facility] 09-09-2024 15:11-0500 Body mass index (BMI) [Ratio] 29.5 kg/m2 Jazmin Ball DO Work Phone: [facility] 09-09-2024 15:11-0500 Body temperature 97.6 [degF] Jazmin Ball DO Work Phone: [facility] 09-09-2024 15:11-0500 Body weight 66.33 kg Jazmin Ball DO Work Phone: [facility] 09-09-2024 15:11-0500 Diastolic blood pressure 70 mm[Hg] Jazmin Ball DO Work Phone: [facility] 09-09-2024 15:11-0500 Heart rate 108 /min Jazmin Ball DO Work Phone: [facility] 09-09-2024 15:11-0500 SaO2% (BldA) [Mass fraction] 97 % Jazmin Ball DO Work Phone: [facility] 09-09-2024 15:11-0500 Systolic blood pressure 125 mm[Hg] Jazmin Ball DO Work Phone: [facility] 09-05-2024 11:19-0500 Body height 149.9 cm Debbie Mac MD Work Phone: [facility] 09-05-2024 11:19-0500 Body mass index (BMI) [Ratio] 28.48 kg/m2 Debbie Mac MD Work Phone: [facility] 09-05-2024 11:19-0500 Body weight 63.96 kg Debbie Mac MD Work Phone: [facility] 09-05-2024 11:19-0500 Diastolic blood pressure 80 mm[Hg] Debbie Mac MD Work Phone: [facility] 09-05-2024 11:19-0500 Heart rate 112 /min Debbie Mac MD Work Phone: [facility] 09-05-2024 11:19-0500 Systolic blood pressure 112 mm[Hg] Debbie Mac MD Work Phone: [facility] 08-27-2024 14:09-0500 Body height 149.86 cm Jazmin Ball DO Work Phone: [facility] 08-27-2024 14:09-0500 Body mass index (BMI) [Ratio] 28.6 kg/m2 Jazmin Ball DO Work Phone: [facility] 08-27-2024 14:09-0500 Body weight 64.41 kg Jazmin Ball DO Work Phone: [facility] 08-27-2024 14:09-0500 Diastolic blood pressure 79 mm[Hg] Jazmin Ball DO Work Phone: [facility] 08-27-2024 14:09-0500 Heart rate 91 /min Jazmin Ball DO Work Phone: [facility] 08-27-2024 14:09-0500 Respiratory rate 12 /min Jazmin Ball DO Work Phone: [facility] 08-27-2024 14:09-0500 Systolic blood pressure 129 mm[Hg] Jazmin Ball DO Work Phone: [facility] 07-31-2024 11:04-0500 Body height 149.86 cm Jazmin Ball DO Work Phone: [facility] 07-31-2024 11:04-0500 Body mass index (BMI) [Ratio] 29.5 kg/m2 Jazmin Ball DO Work Phone: [facility] 07-31-2024 11:04-0500 Body weight 66.28 kg Jazmin Ball DO Work Phone: [facility] 07-31-2024 11:04-0500 Diastolic blood pressure 82 mm[Hg] Jazmin Ball DO Work Phone: [facility] 07-31-2024 11:04-0500 Heart rate 110 /min Jazmin Ball DO Work Phone: [facility] 07-31-2024 11:04-0500 SaO2% (BldA) [Mass fraction] 98 % Jazmin Ball DO Work Phone: [facility] 07-31-2024 11:04-0500 Systolic blood pressure 132 mm[Hg] Jazmin Ball DO Work Phone: [facility] 07-28-2024 11:58-0500 Body height 152.4 cm Maxwell Medrano MD Work Phone: [facility] 07-28-2024 11:58-0500 Body mass index (BMI) [Ratio] 28.16 kg/m2 Maxwell Medrano MD Work Phone: [facility] 07-28-2024 11:58-0500 Body weight 65.41 kg Maxwell Medrano MD Work Phone: [facility] 07-28-2024 11:58-0500 Diastolic blood pressure 74 mm[Hg] Maxwell Medrano MD Work Phone: [facility] 07-28-2024 11:58-0500 Heart rate 84 /min Maxwell Medrano MD Work Phone: [facility] 07-28-2024 11:58-0500 Systolic blood pressure 112 mm[Hg] Maxwell Medrano MD Work Phone: [facility] 07-24-2024 08:08-0500 Diastolic blood pressure 67 mm[Hg] Jazmin Ball DO Work Phone: [facility] 07-24-2024 08:08-0500 Heart rate 92 /min Jazmin Ball DO Work Phone: [facility] 07-24-2024 08:08-0500 Respiratory rate 18 /min Jazmin Ball DO Work Phone: [facility] 07-24-2024 08:08-0500 SaO2% (BldA) [Mass fraction] 93 % Jazmin Ball DO Work Phone: [facility] 07-24-2024 08:08-0500 Systolic blood pressure 124 mm[Hg] Jazmin Ball DO Work Phone: [facility] 07-24-2024 06:00-0500 Body weight 67.1 kg Jazmin Ball DO Work Phone: [facility] 07-24-2024 04:00-0500 Inhaled oxygen flow rate 2 L/min Jazmin Ball DO Work Phone: [facility] 07-23-2024 20:00-0500 Body temperature 98.3 [degF] Jazmin Ball DO Work Phone: [facility] 07-21-2024 21:34-0500 Body height 149.86 cm Jazimn Ball DO Work Phone: [facility] 07-09-2024 14:59-0500 Body height 149.86 cm Jazmin Ball DO Work Phone: [facility] 07-09-2024 14:59-0500 Body mass index (BMI) [Ratio] 29.1 kg/m2 Jazmin Ball DO Work Phone: [facility] 07-09-2024 14:59-0500 Body weight 65.48 kg Jazmin Ball DO Work Phone: [facility] 07-09-2024 14:59-0500 Diastolic blood pressure 82 mm[Hg] Jazmin Ball DO Work Phone: [facility] 07-09-2024 14:59-0500 Heart rate 101 /min Jazmin Ball DO Work Phone: [facility] 07-09-2024 14:59-0500 Respiratory rate 12 /min Jazmin Ball DO Work Phone: [facility] 07-09-2024 14:59-0500 Systolic blood pressure 138 mm[Hg] Jazmin Ball DO Work Phone: [facility] 07-03-2024 12:00-0500 Diastolic blood pressure 95 mm[Hg] Jazmin Ball DO Work Phone: [facility] 07-03-2024 12:00-0500 Heart rate 73 /min Jazmin Ball DO Work Phone: [facility] 07-03-2024 12:00-0500 Respiratory rate 16 /min Jazmin Ball DO Work Phone: [facility] 07-03-2024 12:00-0500 SaO2% (BldA) [Mass fraction] 95 % Jazmin Ball DO Work Phone: [facility] 07-03-2024 12:00-0500 Systolic blood pressure 149 mm[Hg] Jazmin Ball DO Work Phone: [facility] 07-03-2024 08:00-0500 Body temperature 97.6 [degF] Jazmin Ball DO Work Phone: [facility] 07-03-2024 08:00-0500 Inhaled oxygen flow rate 2 L/min Jazmin Ball DO Work Phone: [facility] 07-03-2024 04:50-0500 Body weight 71 kg Jazmin Ball DO Work Phone: [facility] 06-30-2024 18:56-0500 Body height 149.86 cm Jazmin Ball DO Work Phone: [facility] 06-30-2024 18:56-0500 Body temperature 97.8 [degF] Jazmin Ball DO Work Phone: [facility] 06-30-2024 18:56-0500 Body weight 63.5 kg Jazmin Ball DO Work Phone: [facility] 06-30-2024 18:56-0500 Diastolic blood pressure 80 mm[Hg] Jazmin Ball DO Work Phone: [facility] 06-30-2024 18:56-0500 Heart rate 90 /min Jazmin Ball DO Work Phone: [facility] 06-30-2024 18:56-0500 Respiratory rate 20 /min Jazmin Ball DO Work Phone: [facility] 06-30-2024 18:56-0500 SaO2% (BldA) [Mass fraction] 96 % Jazmin Ball DO Work Phone: [facility] 06-30-2024 18:56-0500 Systolic blood pressure 121 mm[Hg] Jazmin Ball DO Work Phone: [facility] 06-10-2024 15:20-0400 Body height 149.86 cm DO Jazmin Ball Work Phone: [facility] 06-10-2024 15:20-0400 Body mass index (BMI) [Ratio] 29.2 kg/m2 DO Jazmin Ball Work Phone: [facility] 06-10-2024 15:20-0400 Body weight 65.54 kg DO Jazmin Ball Work Phone: [facility] 06-10-2024 15:20-0400 Diastolic blood pressure 84 mm[Hg] DO Jazmin Ball Work Phone: [facility] 06-10-2024 15:20-0400 Heart rate 91 /min DO Jazmin Ball Work Phone: [facility] 06-10-2024 15:20-0400 Respiratory rate 20 /min DO Jazmin Ball Work Phone: [facility] 06-10-2024 15:20-0400 Systolic blood pressure 149 mm[Hg] DO Jazmin Ball Work Phone: [facility] 06-05-2024 12:58-0400 Body height 152.4 cm Maxwell Medrano MD Work Phone: [facility] 06-05-2024 12:58-0400 Body mass index (BMI) [Ratio] 28.63 kg/m2 Maxwell Medrano MD Work Phone: [facility] 06-05-2024 12:58-0400 Body weight 66.5 kg Maxwell Medrano MD Work Phone: [facility] 06-05-2024 12:58-0400 Diastolic blood pressure 64 mm[Hg] Maxwell Medrano MD Work Phone: [facility] 06-05-2024 12:58-0400 Systolic blood pressure 126 mm[Hg] Maxwell Medrano MD Work Phone: [facility] 05-29-2024 13:46-0400 Diastolic blood pressure 64 mm[Hg] Katie Yung MD Work Phone: [facility] 05-29-2024 13:46-0400 Heart rate 93 /min Katie Yung MD Work Phone: [facility] 05-29-2024 13:46-0400 Respiratory rate 17 /min Katie Yung MD Work Phone: [facility] 05-29-2024 13:46-0400 SaO2% (BldA) [Mass fraction] 100 % Katie Yung MD Work Phone: [facility] 05-29-2024 13:46-0400 Systolic blood pressure 119 mm[Hg] Katie Yung MD Work Phone: [facility] 05-29-2024 13:20-0400 Body temperature 96.49 [degF] Katie Yung MD Work Phone: [facility] 05-19-2024 09:24-0400 Body height 149.86 cm DO Jazmin Ball Work Phone: [facility] 05-19-2024 09:24-0400 Body mass index (BMI) [Ratio] 29.8 kg/m2 DO Jazmin Ball Work Phone: [facility] 05-19-2024 09:24-0400 Body weight 67 kg DO Jazmin Ball Work Phone: [facility] 05-08-2024 11:58-0400 Body height 149.86 cm DO Jazmin Ball Work Phone: [facility] 05-08-2024 11:58-0400 Body mass index (BMI) [Ratio] 29.7 kg/m2 DO Jazmin Ball Work Phone: [facility] 05-08-2024 11:58-0400 Body weight 66.84 kg DO Jazmin Ball Work Phone: [facility] 05-08-2024 11:58-0400 Diastolic blood pressure 82 mm[Hg] DO Jazmin Ball Work Phone: [facility] 05-08-2024 11:58-0400 Heart rate 88 /min DO Jazmin Ball Work Phone: [facility] 05-08-2024 11:58-0400 Respiratory rate 20 /min DO Jazmin Ball Work Phone: [facility] 05-08-2024 11:58-0400 SaO2% (BldA) [Mass fraction] 96 % DO Jazmin Ball Work Phone: [facility] 05-08-2024 11:58-0400 Systolic blood pressure 134 mm[Hg] DO Jazmin Ball Work Phone: [facility] 04-28-2024 11:55-0400 Body height 152.4 cm Maxwell Medrano MD Work Phone: [facility] 04-28-2024 11:55-0400 Diastolic blood pressure 70 mm[Hg] Maxwell Medrano MD Work Phone: [facility] 04-28-2024 11:55-0400 Heart rate 88 /min Maxwell Medrano MD Work Phone: [facility] 04-28-2024 11:55-0400 Systolic blood pressure 110 mm[Hg] Maxwell Medrano MD Work Phone: [facility] 04-24-2024 15:33-0400 Body height 152.4 cm Debbie Mac MD Work Phone: [facility] 04-24-2024 15:33-0400 Body mass index (BMI) [Ratio] 28.32 kg/m2 Debbie Mac MD Work Phone: [facility] 04-24-2024 15:33-0400 Body weight 65.77 kg Debbie Mac MD Work Phone: [facility] 04-24-2024 15:33-0400 Diastolic blood pressure 80 mm[Hg] Debbie Mac MD Work Phone: [facility] 04-24-2024 15:33-0400 Heart rate 114 /min Debbie Mac MD Work Phone: [facility] 04-24-2024 15:33-0400 Systolic blood pressure 112 mm[Hg] Debbie Mac MD Work Phone: [facility] 04-18-2024 10:090400 Body height 149.86 cm DO Jazmin Ball Work Phone: [facility] 04-18-2024 10:09-0400 Body mass index (BMI) [Ratio] 28.8 kg/m2 DO Jazmin Ball Work Phone: [facility] 04-18-2024 10:090400 Body weight 64.86 kg DO Jazmin Ball Work Phone: [facility] 04-18-2024 10:09-0400 Diastolic blood pressure 77 mm[Hg] DO Jazmin Ball Work Phone: [facility] 04-18-2024 10:09-0400 Heart rate 75 /min DO Jazmin Ball Work Phone: [facility] 04-18-2024 10:09-0400 Systolic blood pressure 143 mm[Hg] DO Jazmin Ball Work Phone: [facility] 04-17-2024 10:43-0400 Body height 152.4 cm Maxwell Medrano MD Work Phone: [facility] 04-17-2024 10:43-0400 Body mass index (BMI) [Ratio] 28.59 kg/m2 Maxwell Medrano MD Work Phone: [facility] 04-17-2024 10:43-0400 Body weight 66.41 kg Maxwell Medrano MD Work Phone: [facility] 04-17-2024 10:43-0400 Diastolic blood pressure 62 mm[Hg] Maxwell Medrano MD Work Phone: [facility] 04-17-2024 10:43-0400 Heart rate 88 /min Maxwell Medrano MD Work Phone: [facility] 04-17-2024 10:43-0400 Systolic blood pressure 96 mm[Hg] Maxwell Medrano MD Work Phone: [facility] 04-08-2024 16:12-0400 Body height 149.86 cm DO Jazmin Ball Work Phone: [facility] 04-08-2024 16:12-0400 Body mass index (BMI) [Ratio] 30.5 kg/m2 DO Jazmin Ball Work Phone: [facility] 04-08-2024 16:12-0400 Body weight 68.6 kg DO Jazmin Ball Work Phone: [facility] 04-08-2024 16:12-0400 Diastolic blood pressure 70 mm[Hg] DO Jazmin Ball Work Phone: [facility] 04-08-2024 16:12-0400 Heart rate 87 /min DO Jazmin Ball Work Phone: [facility] 04-08-2024 16:12-0400 Respiratory rate 12 /min DO Jazmin Ball Work Phone: [facility] 04-08-2024 16:12-0400 Systolic blood pressure 114 mm[Hg] DO Jazmin Ball Work Phone: [facility] 02-28-2024 11:47-0400 Body height 149.9 cm Maxwell Medrano MD Work Phone: [facility] 02-28-2024 11:47-0400 Body mass index (BMI) [Ratio] 30.7 kg/m2 Maxwell Medrano MD Work Phone: [facility] 02-28-2024 11:47-0400 Body weight 68.95 kg Maxwell Medrano MD Work Phone: [facility] 02-28-2024 11:47-0400 Diastolic blood pressure 78 mm[Hg] Maxwell Medrano MD Work Phone: [facility] 02-28-2024 11:47-0400 Heart rate 95 /min Maxwell Medrano MD Work Phone: [facility] 02-28-2024 11:47-0400 Systolic blood pressure 110 mm[Hg] Maxwell Medrano MD Work Phone: [facility] 02-25-2024 14:27-0400 Body mass index (BMI) [Ratio] 30.86 kg/m2 Debbie Mac MD Work Phone: [facility] 02-25-2024 14:27-0400 Body weight 69.31 kg Debbie Mac MD Work Phone: [facility] 02-25-2024 14:27-0400 Diastolic blood pressure 80 mm[Hg] Debbie Mac MD Work Phone: [facility] 02-25-2024 14:27-0400 Heart rate 87 /min Debbie Mac MD Work Phone: [facility] 02-25-2024 14:27-0400 Systolic blood pressure 118 mm[Hg] Debbie Mac MD Work Phone: [facility] 02-15-2024 08:46-0400 Body height 149.86 cm DO Jazmin Ball Work Phone: [facility] 02-15-2024 08:46-0400 Body mass index (BMI) [Ratio] 30.9 kg/m2 DO Jazmin Ball Work Phone: [facility] 02-15-2024 08:46-0400 Body weight 69.45 kg DO Jazmin Ball Work Phone: [facility] 02-15-2024 08:46-0400 Diastolic blood pressure 89 mm[Hg] DO Jazmin Ball Work Phone: [facility] 02-15-2024 08:46-0400 Heart rate 97 /min DO Jazmin Ball Work Phone: [facility] 02-15-2024 08:46-0400 Respiratory rate 20 /min DO Jazmin Ball Work Phone: [facility] 02-15-2024 08:46-0400 SaO2% (BldA) [Mass fraction] 96 % DO Jazmin Ball Work Phone: [facility] 02-15-2024 08:46-0400 Systolic blood pressure 139 mm[Hg] DO Jazmin Ball Work Phone: [facility] 01-28-2024 15:25-0400 Body height 149.86 cm DO Jazmin Ball Work Phone: [facility] 01-28-2024 15:25-0400 Body mass index (BMI) [Ratio] 31.4 kg/m2 DO Jazmin Ball Work Phone: [facility] 01-28-2024 15:25-0400 Body weight 70.47 kg DO Jazmin Ball Work Phone: [facility] 01-28-2024 15:25-0400 Diastolic blood pressure 79 mm[Hg] DO Jazmin Ball Work Phone: [facility] 01-28-2024 15:25-0400 Heart rate 72 /min DO Jazmin Ball Work Phone: [facility] 01-28-2024 15:25-0400 Respiratory rate 20 /min DO Jazmin Ball Work Phone: [facility] 01-28-2024 15:25-0400 Systolic blood pressure 137 mm[Hg] DO Jazmin Ball Work Phone: [facility] 01-22-2024 12:46-0400 Body height 149.9 cm [facility] 01-22-2024 12:46-0400 Body mass index (BMI) [Ratio] 30.9 kg/m2 [facility] 01-22-2024 12:46-0400 Body weight 69.4 kg [facility] 01-22-2024 12:46-0400 Diastolic blood pressure 94 mm[Hg] [facility] 01-22-2024 12:46-0400 Heart rate 71 /min [facility] 01-22-2024 12:46-0400 Systolic blood pressure 134 mm[Hg] [facility] 01-20-2024 12:00-0400 Diastolic blood pressure 86 mm[Hg] DO Jazmin Ball Work Phone: [facility] 01-20-2024 12:00-0400 Heart rate 78 /min DO Jazmin Ball Work Phone: [facility] 01-20-2024 12:00-0400 Respiratory rate 18 /min DO Jazmin Ball Work Phone: [facility] 01-20-2024 12:00-0400 SaO2% (BldA) [Mass fraction] 96 % DO Jazmin Ball Work Phone: [facility] 01-20-2024 12:00-0400 Systolic blood pressure 128 mm[Hg] DO Jazmin Ball Work Phone: [facility] 01-20-2024 09:23-0400 Body temperature 97.9 [degF] DO Jazmin Ball Work Phone: [facility] 01-20-2024 06:00-0400 Body weight 70 kg DO Jazmin Ball Work Phone: [facility] 01-18-2024 21:55-0400 Body height 149.86 cm DO Jazmin Ball Work Phone: [facility] 01-18-2024 21:00-0400 Diastolic blood pressure 97 mm[Hg] DO Jazmin Ball Work Phone: [facility] 01-18-2024 21:00-0400 Heart rate 118 /min DO Jazmin Ball Work Phone: [facility] 01-18-2024 21:00-0400 Respiratory rate 18 /min DO Jazmin Ball Work Phone: [facility] 01-18-2024 21:00-0400 SaO2% (BldA) [Mass fraction] 95 % DO Jazmin Ball Work Phone: [facility] 01-18-2024 21:00-0400 Systolic blood pressure 138 mm[Hg] DO Jazmin Ball Work Phone: [facility] 01-18-2024 15:05-0400 Body height 149.86 cm DO Jazmin Ball Work Phone: [facility] 01-18-2024 15:05-0400 Body temperature 97.8 [degF] DO Jazmin Ball Work Phone: [facility] 01-18-2024 15:05-0400 Body weight 69.9 kg DO Jazmin Ball Work Phone: [facility] 11-27-2023 15:07-0400 Body height 160.02 cm DO Jazmin Ball Work Phone: [facility] 11-27-2023 15:07-0400 Body mass index (BMI) [Ratio] 29.1 kg/m2 DO Jazmin Ball Work Phone: [facility] 11-27-2023 15:07-0400 Body weight 74.61 kg DO Jazmin Ball Work Phone: [facility] 11-27-2023 15:07-0400 Diastolic blood pressure 83 mm[Hg] DO Jazmin Ball Work Phone: [facility] 11-27-2023 15:07-0400 Heart rate 116 /min DO Jazmin Ball Work Phone: [facility] 11-27-2023 15:07-0400 Respiratory rate 12 /min DO Jazmin Ball Work Phone: [facility] 11-27-2023 15:07-0400 Systolic blood pressure 135 mm[Hg] DO Jazmin العلي Work Phone: [facility] 09-19-2023 13:07-0500 Body height 149.9 cm Debbie Mac MD Work Phone: [facility] 09-19-2023 13:07-0500 Body mass index (BMI) [Ratio] 33.2 kg/m2 Debbie Mac MD Work Phone: [facility] 09-19-2023 13:07-0500 Body weight 74.57 kg Debbie Mac MD Work Phone: [facility] 09-19-2023 13:07-0500 Diastolic blood pressure 92 mm[Hg] Debbie Mac MD Work Phone: [facility] 09-19-2023 13:07-0500 Heart rate 91 /min Debbie Mac MD Work Phone: [facility] 09-19-2023 13:07-0500 Systolic blood pressure 126 mm[Hg] Debbie Mac MD Work Phone: [facility] 08-21-2023 13:27-0500 Body height 149.[address] 08-21-2023 13:27-0500 Body mass index (BMI) [Ratio] 33.33 kg/m2 [address] 08-21-2023 13:27-0500 Body weight 74.[address] 08-21-2023 13:27-0500 Diastolic blood pressure 64 mm[Hg] [address] 08-21-2023 13:27-0500 Systolic blood pressure 116 mm[Hg] [address] 08-19-2023 12:15-0500 Body height 160.02 cm Negin Garcia Other [employer] Other 05-31-2023 15:24-0400 Body height 149.9 cm Debbie Mac MD Work Phone: [facility] 05-31-2023 15:24-0400 Body mass index (BMI) [Ratio] 33.33 kg/m2 Debbie Mac MD Work Phone: [facility] 05-31-2023 15:24-0400 Body weight 74.84 kg Debbie Mac MD Work Phone: [facility] 05-31-2023 15:24-0400 Diastolic blood pressure 64 mm[Hg] Debbie Mac MD Work Phone: [facility] 05-31-2023 15:24-0400 Heart rate 70 /min Debbie Mac MD Work Phone: [facility] 05-31-2023 15:24-0400 Systolic blood pressure 122 mm[Hg] Debbie Mac MD Work Phone: [facility] 03-21-2023 15:00-0400 Body height 160.02 cm Jazmin Ball Other [facility] Other 03-21-2023 15:00-0400 Body mass index (BMI) [Ratio] 28.62 kg/m2 Jazmin Ball Other [facility] Other 03-21-2023 15:00-0400 Body weight 73.3 kg Jazmin Ball Other [facility] Other 03-21-2023 15:00-0400 Diastolic blood pressure 79 mm[Hg] Jazmin Ball Other [facility] Other 03-21-2023 15:00-0400 Respiratory rate 12 /min Jazmin Ball Other [facility] Other 03-21-2023 15:00-0400 Systolic blood pressure 124 mm[Hg] Jazmin Ball Other [facility] Other 03-05-2023 14:42-0400 Diastolic blood pressure 76 mm[Hg] DO Jazmin Ball Work Phone: [facility] 03-05-2023 14:42-0400 Heart rate 92 /min DO Jazmin Ball Work Phone: [facility] 03-05-2023 14:42-0400 Inhaled oxygen flow rate 3 L/min DO Jazmin Ball Work Phone: [facility] 03-05-2023 14:42-0400 Respiratory rate 16 /min DO Jazmin Ball Work Phone: [facility] 03-05-2023 14:42-0400 SaO2% (BldA) [Mass fraction] 93 % DO Jazmin Ball Work Phone: [facility] 03-05-2023 14:42-0400 Systolic blood pressure 129 mm[Hg] DO Jazmin Ball Work Phone: [facility] 03-05-2023 13:48-0400 Body temperature 97 [degF] DO Jazmin Ball Work Phone: [facility] 03-05-2023 09:23-0400 Body height 149.86 cm DO Jazmin Ball Work Phone: [facility] 03-05-2023 09:23-0400 Body weight 73 kg DO Jazmin Ball Work Phone: [facility] 01-25-2023 13:09-0400 Body height 149.86 cm Jazmin E Ball Work Phone: [facility] Work Phone: 01-25-2023 13:09-0400 Body mass index (BMI) [Ratio] 32.52 kg/m2 Jazmin E Ball Work Phone: [facility] Work Phone: 01-25-2023 13:09-0400 Body surface area Derived from formula 1.68 m2 Jazmin E Ball Work Phone: [facility] Work Phone: 01-25-2023 13:09-0400 Body weight 73.03 kg Jazmin E Ball Work Phone: [facility] Work Phone: 01-25-2023 13:09-0400 Diastolic blood pressure 78 mm[Hg] Jazmin E Ball Work Phone: [facility] Work Phone: 01-25-2023 13:09-0400 Heart rate 72 /min Jazmin E Ball Work Phone: [facility] Work Phone: 01-25-2023 13:09-0400 Systolic blood pressure 126 mm[Hg] Jazmin E Ball Work Phone: [facility] Work Phone: 01-09-2023 17:07-0400 Diastolic blood pressure 98 mm[Hg] DO Jazmin Ball Work Phone: [facility] 01-09-2023 17:07-0400 Heart rate 70 /min DO Jazmin Ball Work Phone: [facility] 01-09-2023 17:07-0400 Respiratory rate 14 /min DO Jazmin Ball Work Phone: [facility] 01-09-2023 17:07-0400 SaO2% (BldA) [Mass fraction] 95 % DO Jazmin Ball Work Phone: [facility] 01-09-2023 17:07-0400 Systolic blood pressure 130 mm[Hg] DO Jazmin Ball Work Phone: [facility] 01-09-2023 10:54-0400 Body height 149.86 cm DO Jazmin Ball Work Phone: [facility] 01-09-2023 10:54-0400 Body temperature 98.6 [degF] DO Jazmin Ball Work Phone: [facility] 01-09-2023 10:54-0400 Body weight 73.2 kg DO Jazmin Ball Work Phone: [facility] 01-04-2023 14:23-0400 Body height 149.86 cm Jazmin E Ball Work Phone: [facility] Work Phone: 01-04-2023 14:23-0400 Body mass index (BMI) [Ratio] 32.52 kg/m2 Jazmin E Ball Work Phone: [facility] Work Phone: 01-04-2023 14:23-0400 Body surface area Derived from formula 1.68 m2 Jazmin E Ball Work Phone: [facility] Work Phone: 01-04-2023 14:23-0400 Body weight 73.03 kg Jazmin E Ball Work Phone: [facility] Work Phone: 01-04-2023 14:23-0400 Diastolic blood pressure 88 mm[Hg] Jazmin E Ball Work Phone: [facility] Work Phone: 01-04-2023 14:23-0400 Heart rate 76 /min Jazmin E Ball Work Phone: [facility] Work Phone: 01-04-2023 14:23-0400 Systolic blood pressure 128 mm[Hg] Jazmin E Ball Work Phone: [facility] Work Phone: 01-03-2023 14:05-0400 Body height 149.86 cm Jazmin E Ball Work Phone: [facility] Work Phone: 01-03-2023 14:05-0400 Body mass index (BMI) [Ratio] 33.12 kg/m2 Jazmin E Ball Work Phone: [facility] Work Phone: 01-03-2023 14:05-0400 Body surface area Derived from formula 1.69 m2 Jazmin E Ball Work Phone: [facility] Work Phone: 01-03-2023 14:05-0400 Body weight 74.39 kg Jazmin E Ball Work Phone: [facility] Work Phone: 01-03-2023 14:05-0400 Diastolic blood pressure 62 mm[Hg] Jazmin E Ball Work Phone: [facility] Work Phone: 01-03-2023 14:05-0400 Heart rate 70 /min Jazmin E Ball Work Phone: [facility] Work Phone: 01-03-2023 14:05-0400 Systolic blood pressure 118 mm[Hg] Jazmin E Ball Work Phone: [facility] Work Phone: 12-25-2022 13:41-0400 Diastolic blood pressure 84 mm[Hg] Jazmin E Ball Work Phone: [facility] Work Phone: 12-25-2022 13:41-0400 Heart rate 107 /min Jazmin E Ball Work Phone: [facility] Work Phone: 12-25-2022 13:41-0400 Respiratory rate 16 /min Jazmin E Ball Work Phone: [facility] Work Phone: 12-25-2022 13:41-0400 SaO2% (BldA) [Mass fraction] 96 % Jazmin E Ball Work Phone: [facility] Work Phone: 12-25-2022 13:41-0400 Systolic blood pressure 132 mm[Hg] Jazmin E Ball Work Phone: [facility] Work Phone: 11-27-2022 09:24-0400 Body height 149.86 cm DO Jazmin Ball Work Phone: [facility] 11-27-2022 09:24-0400 Body temperature 98 [degF] DO Jazmin Ball Work Phone: [facility] 11-27-2022 09:24-0400 Body weight 73 kg DO Jazmin Ball Work Phone: [facility] 11-27-2022 09:24-0400 Diastolic blood pressure 82 mm[Hg] DO Jazmin Ball Work Phone: [facility] 11-27-2022 09:24-0400 Heart rate 105 /min DO Jazmin Ball Work Phone: [facility] 11-27-2022 09:24-0400 Respiratory rate 18 /min DO Jazmin Ball Work Phone: [facility] 11-27-2022 09:24-0400 SaO2% (BldA) [Mass fraction] 97 % DO Jazmin Ball Work Phone: [facility] 11-27-2022 09:24-0400 Systolic blood pressure 136 mm[Hg] DO Jazmin Ball Work Phone: [facility] 10-24-2022 14:30-0500 Body height 160.02 cm Rachel Larios Other [facility] Other 10-24-2022 14:30-0500 Body mass index (BMI) [Ratio] 28.16 kg/m2 Rachel Larios Other [facility] Other 10-24-2022 14:30-0500 Body weight 72.12 kg Rachel Larios Other [facility] Other 10-24-2022 14:30-0500 Diastolic blood pressure 98 mm[Hg] Rachel Larios Other [facility] Other 10-24-2022 14:30-0500 SaO2% (BldA) [Mass fraction] 97 % Rachel Larios Other [facility] Other 10-24-2022 14:30-0500 Systolic blood pressure 152 mm[Hg] Rachel Larios Other [facility] Other 10-13-2022 10:48-0500 Body height 149.86 cm Jazmin E Ball Work Phone: [facility] [address] DO Work Phone: 10-13-2022 10:48-0500 Body mass index (BMI) [Ratio] 32.11 kg/m2 Jazmin E Ball Work Phone: [facility] [address] DO Work Phone: 10-13-2022 10:48-0500 Body surface area Derived from formula 1.67 m2 Jazmin E Ball Work Phone: [facility] DO Work Phone: 10-13-2022 10:48-0500 Body weight 72.12 kg Jazmin E Ball Work Phone: [facility] DO Work Phone: 10-13-2022 10:48-0500 Diastolic blood pressure 66 mm[Hg] Jazmin E Ball Work Phone: [facility] [address] DO Work Phone: 10-13-2022 10:48-0500 Heart rate 72 /min Jazmin E Ball Work Phone: [facility] [address] DO Work Phone: 10-13-2022 10:48-0500 Systolic blood pressure 98 mm[Hg] Jazmin E Ball Work Phone: [facility] [address] DO Work Phone: 09-27-2022 13:36-0500 Body height 149.86 cm Jazmin E Ball Work Phone: [facility] DO Work Phone: 09-27-2022 13:36-0500 Body mass index (BMI) [Ratio] 31.91 kg/m2 Jazmin E Ball Work Phone: [facility] DO Work Phone: 09-27-2022 13:36-0500 Body surface area Derived from formula 1.67 m2 Jazmin E Ball Work Phone: [facility] [address] DO Work Phone: 09-27-2022 13:36-0500 Body weight 71.67 kg Jazmin E Ball Work Phone: [facility] [address] DO Work Phone: 09-27-2022 13:36-0500 Diastolic blood pressure 86 mm[Hg] Jazmin E Ball Work Phone: [facility] DO Work Phone: 09-27-2022 13:36-0500 Heart rate 70 /min Jazmin Hahn Ball Work Phone: [facility] [address] DO Work Phone: 09-27-2022 13:36-0500 Systolic blood pressure 122 mm[Hg] Jazmin Hahn Ball Work Phone: [facility] [address] DO Work Phone: 09-21-2022 16:34-0500 Body temperature 97.8 [degF] DO Jazmin Ball Work Phone: [facility] 09-21-2022 16:34-0500 Diastolic blood pressure 77 mm[Hg] DO Jazmin Ball Work Phone: [facility] 09-21-2022 16:34-0500 Heart rate 68 /min DO Jazmin Ball Work Phone: [facility] 09-21-2022 16:34-0500 Respiratory rate 18 /min DO Jazmin Ball Work Phone: [facility] 09-21-2022 16:34-0500 SaO2% (BldA) [Mass fraction] 96 % DO Jazmin Ball Work Phone: [facility] 09-21-2022 16:34-0500 Systolic blood pressure 134 mm[Hg] DO Jazmin Ball Work Phone: [facility] 09-21-2022 06:00-0500 Body weight 73.2 kg DO Jazmin Ball Work Phone: [facility] 09-17-2022 15:30-0500 Diastolic blood pressure 81 mm[Hg] DO Jazmin Ball Work Phone: [facility] 09-17-2022 15:30-0500 Heart rate 75 /min DO Jazmin Ball Work Phone: [facility] 09-17-2022 15:30-0500 Respiratory rate 16 /min DO Jazmin Ball Work Phone: [facility] 09-17-2022 15:30-0500 SaO2% (BldA) [Mass fraction] 96 % DO Jazmin Ball Work Phone: [facility] 09-17-2022 15:30-0500 Systolic blood pressure 139 mm[Hg] DO Jazmin Ball Work Phone: [facility] 09-17-2022 14:00-0500 Body height 149.86 cm DO Jazmin Ball Work Phone: [facility] 09-17-2022 14:00-0500 Body weight 72.1 kg DO Jazmin Ball Work Phone: [facility] 09-17-2022 13:00-0500 Body temperature 97.8 [degF] DO Jazmin Ball Work Phone: [facility] 09-12-2022 16:00-0500 Body height 160.02 cm Jazmin Ball Other [facility] Other 09-12-2022 16:00-0500 Body mass index (BMI) [Ratio] 28.02 kg/m2 Jazmin Ball Other [facility] Other 09-12-2022 16:00-0500 Body weight 71.76 kg Jazmin Ball Other [facility] [employer] Other 09-12-2022 16:00-0500 Diastolic blood pressure 76 mm[Hg] Jazmin Ball Other [facility] Other 09-12-2022 16:00-0500 Respiratory rate 12 /min Jazmin Ball Other [facility] Other 09-12-2022 16:00-0500 SaO2% (BldA) [Mass fraction] 97 % Jazmin Ball Other [employer] Other 09-12-2022 16:00-0500 Systolic blood pressure 132 mm[Hg] Jazmin Ball Other [facility] [employer] Other 09-06-2022 07:32-0500 Body temperature 97 [degF] DO Jazmin Ball Work Phone: [facility] 09-06-2022 07:32-0500 Diastolic blood pressure 83 mm[Hg] DO Jazmin Ball Work Phone: [facility] 09-06-2022 07:32-0500 Heart rate 92 /min DO Jazmin Ball Work Phone: [facility] 09-06-2022 07:32-0500 Respiratory rate 18 /min DO Jazmin Ball Work Phone: [facility] 09-06-2022 07:32-0500 SaO2% (BldA) [Mass fraction] 94 % DO Jazmin Ball Work Phone: [facility] 09-06-2022 07:32-0500 Systolic blood pressure 141 mm[Hg] DO Jazmin Ball Work Phone: [facility] 09-06-2022 06:00-0500 Body weight 70.1 kg DO Jazmin Ball Work Phone: [facility] 09-04-2022 14:04-0500 Body height 149.86 cm DO Jazmin Ball Work Phone: [facility] 09-04-2022 12:21-0500 40 1 Jazmin E Ball Work Phone: [facility] 250 DO Work Phone: Comment on above: [id number] 09-01-2022 22:47-0500 Diastolic blood pressure 85 mm[Hg] DO Jazmin Ball Work Phone: [facility] 09-01-2022 22:47-0500 Heart rate 98 /min DO Jazmin Ball Work Phone: [facility] 09-01-2022 22:47-0500 Systolic blood pressure 151 mm[Hg] DO Jazmin Ball Work Phone: [facility] 09-01-2022 22:30-0500 Respiratory rate 26 /min DO Jazmin Ball Work Phone: [facility] 09-01-2022 22:30-0500 SaO2% (BldA) [Mass fraction] 98 % DO Jazmin Ball Work Phone: [facility] 09-01-2022 12:07-0500 Body height 149.86 cm DO Jazmin Ball Work Phone: [facility] 09-01-2022 12:07-0500 Body temperature 98.3 [degF] DO Jazmin Ball Work Phone: [facility] 09-01-2022 12:07-0500 Body weight 73 kg DO Jazmin Ball Work Phone: [facility] 08-24-2022 10:03-0500 Body height 149.86 cm Jazmin E Ball Work Phone: [facility] [facility] DO Work Phone: 08-24-2022 10:03-0500 Body mass index (BMI) [Ratio] 32.92 kg/m2 Jazmin E Ball Work Phone: [facility] DO Work Phone: 08-24-2022 10:03-0500 Body surface area Derived from formula 1.69 m2 Jazmin E Ball Work Phone: [facility] 250 DO Work Phone: 08-24-2022 10:03-0500 Body weight 73.94 kg Jazmin E Ball Work Phone: [facility] 250 DO Work Phone: 08-24-2022 10:03-0500 Diastolic blood pressure 98 mm[Hg] Jazmin E Ball Work Phone: [facility] DO Work Phone: 08-24-2022 10:03-0500 Heart rate 112 /min Jazmin E Ball Work Phone: [facility] [facility] DO Work Phone: 08-24-2022 10:03-0500 Systolic blood pressure 132 mm[Hg] Jazmin E Ball Work Phone: [facility] [facility] DO Work Phone: 06-26-2022 14:26-0500 Body height 149.86 cm Jazmin E Ball Work Phone: [facility] DO Work Phone: 06-26-2022 14:26-0500 Body mass index (BMI) [Ratio] 32.92 kg/m2 Jazmin E Ball Work Phone: [facility] 250 DO Work Phone: 06-26-2022 14:26-0500 Body surface area Derived from formula 1.69 m2 Jazmin E Ball Work Phone: [facility] 250 DO Work Phone: 06-26-2022 14:26-0500 Body weight 73.94 kg Jazmin E Ball Work Phone: [facility] 250 DO Work Phone: 06-26-2022 14:26-0500 Diastolic blood pressure 70 mm[Hg] Jazmin E Ball Work Phone: [facility] DO Work Phone: 06-26-2022 14:26-0500 Heart rate 71 /min Jazmin E Ball Work Phone: [facility] DO Work Phone: 06-26-2022 14:26-0500 Systolic blood pressure 132 mm[Hg] Jazmin E Ball Work Phone: [facility] DO Work Phone: 04-27-2022 14:30-0400 Body height 160.02 cm John Mims Other [facility] Other 04-27-2022 14:30-0400 Body mass index (BMI) [Ratio] 27.45 kg/m2 John Mims Other [place] [employer] Other 04-27-2022 14:30-0400 Body weight 70.31 kg John Mims Other [place] [employer] Other 03-10-2022 10:53-0400 Diastolic blood pressure 82 mm[Hg] Jazmin E Ball Work Phone: [facility] DO Work Phone: 03-10-2022 10:53-0400 Systolic blood pressure 126 mm[Hg] Jazmin E Ball Work Phone: [facility] DO Work Phone: 03-10-2022 10:19-0400 Body height 149.86 cm Jazmin E Ball Work Phone: [facility] DO Work Phone: 03-10-2022 10:19-0400 Body mass index (BMI) [Ratio] 31.91 kg/m2 Jazmin E Ball Work Phone: [facility] 250 DO Work Phone: 03-10-2022 10:19-0400 Body surface area Derived from formula 1.67 m2 Jazmin E Ball Work Phone: [facility] 250 DO Work Phone: 03-10-2022 10:19-0400 Body weight 71.67 kg Jazmin E Ball Work Phone: [facility] 250 DO Work Phone: 03-10-2022 10:19-0400 Diastolic blood pressure 80 mm[Hg] Jazmin E Ball Work Phone: [facility] [employer] 250 DO Work Phone: 03-10-2022 10:19-0400 Heart rate 78 /min Jazmin E Ball Work Phone: [facility] [employer] 250 DO Work Phone: 03-10-2022 10:19-0400 Systolic blood pressure 146 mm[Hg] Jazmin E Ball Work Phone: [facility] [employer] 250 DO Work Phone: 02-28-2022 15:45-0400 Body height 160.02 cm John Mims Other [employer] Other 02-28-2022 15:45-0400 Body mass index (BMI) [Ratio] 27.45 kg/m2 John Mims Other [employer] Other 02-28-2022 15:45-0400 Body weight 70.31 kg John Mims Other [employer] Other 02-28-2022 15:32-0400 Body weight 0 kg DO Jazmin Ball Work Phone: [facility] 12-15-2021 08:46-0400 Body weight 0 kg DO Jazmin Ball Work Phone: [facility] 10-19-2021 16:04-0500 Body height 149.86 cm Jazmin E Ball Work Phone: [facility] 250 DO Work Phone: 10-19-2021 16:04-0500 Body mass index (BMI) [Ratio] 29.13 kg/m2 Jazmin E Ball Work Phone: [facility] 250 DO Work Phone: 10-19-2021 16:04-0500 Body surface area Derived from formula 1.6 m2 Jazmin E Ball Work Phone: [facility] DO Work Phone: 10-19-2021 16:04-0500 Body weight 65.41 kg Jazmin E Ball Work Phone: [facility] 250 DO Work Phone: 10-19-2021 16:04-0500 Diastolic blood pressure 76 mm[Hg] Jazmin E Ball Work Phone: [facility] DO Work Phone: 10-19-2021 16:04-0500 Heart rate 70 /min Jazmin E Ball Work Phone: [facility] 250 DO Work Phone: 10-19-2021 16:04-0500 Systolic blood pressure 110 mm[Hg] Jazmin E Ball Work Phone: [facility] DO Work Phone: 07-26-2021 14:31-0500 Body height 149.86 cm Jazmin E Ball Work Phone: [facility] 250 DO Work Phone: 07-26-2021 14:31-0500 Body mass index (BMI) [Ratio] 29.49 kg/m2 Jazmin E Ball Work Phone: [facility] DO Work Phone: 07-26-2021 14:31-0500 Body surface area Derived from formula 1.61 m2 Jazmin E Ball Work Phone: [facility] 250 DO Work Phone: 07-26-2021 14:31-0500 Body weight 66.23 kg Jazmin E Ball Work Phone: [facility] 250 DO Work Phone: 07-26-2021 14:31-0500 Diastolic blood pressure 80 mm[Hg] Jazmin E Ball Work Phone: [facility] DO Work Phone: 07-26-2021 14:31-0500 Heart rate 70 /min Jazmin Hahn Ball Work Phone: [facility] DO Work Phone: 07-26-2021 14:31-0500 Systolic blood pressure 124 mm[Hg] Jazmin E Ball Work Phone: [facility] DO Work Phone: 07-06-2021 15:54-0500 Body height 149.86 cm Jazmin E Ball Work Phone: [facility] 250 DO Work Phone: 07-06-2021 15:54-0500 Body mass index (BMI) [Ratio] 28.48 kg/m2 Jazmin E Ball Work Phone: [facility] 250 DO Work Phone: 07-06-2021 15:54-0500 Body surface area Derived from formula 1.59 m2 Jazmin E Ball Work Phone: [facility] DO Work Phone: 07-06-2021 15:54-0500 Body temperature 97.2 [degF] Jazmin Hahn Ball Work Phone: [facility] 250 DO Work Phone: 07-06-2021 15:54-0500 Body weight 63.96 kg Jazmin E Ball Work Phone: [facility] DO Work Phone: 07-06-2021 15:54-0500 Diastolic blood pressure 49 mm[Hg] Jazmin Jovani Ball Work Phone: [facility] 250 DO Work Phone: 07-06-2021 15:54-0500 Heart rate 73 /min Jazmin Hahn Ball Work Phone: [facility] DO Work Phone: 07-06-2021 15:54-0500 Systolic blood pressure 95 mm[Hg] Jazmin Hahn Ball Work Phone: [facility] DO Work Phone: 06-30-2021 00:00-0500 0 1 Jazmin Hahn Ball Work Phone: [facility] DO Work Phone: Comment on above: [id number] 06-06-2021 15:33-0400 Body height 152.4 cm Jazmin E Ball Work Phone: [facility] DO Work Phone: 06-06-2021 15:33-0400 Body mass index (BMI) [Ratio] 28.12 kg/m2 Jazmin E Ball Work Phone: [facility] 250 DO Work Phone: 06-06-2021 15:33-0400 Body surface area Derived from formula 1.62 m2 Jazmin E Ball Work Phone: [facility] DO Work Phone: 06-06-2021 15:33-0400 Body weight 65.32 kg Jazmin العلي Work Phone: [facility] [facility] DO Work Phone: 06-06-2021 15:33-0400 Diastolic blood pressure 64 mm[Hg] Jazmin العلي Work Phone: [facility] DO Work Phone: 06-06-2021 15:33-0400 Heart rate 110 /min Jazmin العلي Work Phone: [facility] DO Work Phone: 06-06-2021 15:33-0400 Systolic blood pressure 88 mm[Hg] Jazmin العلي Work Phone: [facility] DO Work Phone: Encounters Encounter Date Encounter Type Care Provider Facility Start: 05-28-2025 End: 05-28-2025 Subsequent hospital visit by physician Maxwell Medrano MD Work Phone: [facility] Comment on above: Persistent atrial fi brillation (Multi) (Primary Dx) Start: 05-27-2025 End: 05-27-2025 ambulatory Jazmin العلي DO Work Phone: [facility] Work Phone: Start: 05-27-2025 End: 05-27-2025 Patient encounter procedure Rachel Larios MD -[facility] Work Phone: Start: 05-26-2025 End: 05-26-2025 ambulatory [facility] Start: 05-26-2025 End: 05-26-2025 Office outpatient visit 25 minutes Debbie Mac MD Work Phone: [facility] Comment on above: Persistent atrial fi brillation (Multi) (Primary Dx); Single vessel coronary artery disease; High risk medication use; Sinus bradycardia; 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 (Multi); Pacemaker; Mixed hyperlipidemia; Essential hypertension, benign; Chronic diastolic heart failure (Multi); Atrial flutter, unspecified type (Multi); Anticoagulated; BMI 28.0-28.9,adult; Shortness of breath; Never smoked any substance Start: 05-22-2025 Non-patient / Non-visit Jazmin rosen DO -[facility] Work Phone: Start: 05-19-2025 End: 05-19-2025 Subsequent hospital visit by physician Chanell Joseph [facility] Comment on above: Pacemaker; Sick sinus syndrome (Multi) Start: 05-19-2025 End: 05-19-2025 ambulatory [facility] Start: 05-18-2025 End: 05-18-2025 ambulatory Jazmin العلي DO Work Phone: [facility] Work Phone: Start: 05-18-2025 End: 05-18-2025 Patient encounter procedure Jazmin العلي DO -[facility] Work Phone: Start: 05-07-2025 End: 05-07-2025 Office [...] 05-05-2025 Non-patient / Non-visit Sasha Hoyos CMA -[facility] Work Phone: Start: 05-05-2025 Non-patient / Non-visit Maxwell treadwell MD -[facility] Work Phone: Start: 05-04-2025 End: 05-04-2025 ambulatory Jazmin العلي DO Work Phone: [facility] Work Phone: Start: 05-04-2025 End: 05-04-2025 Departed Referred Maxwell Basurto MD -[facility] Start: 05-04-2025 Non-patient / Non-visit Maxwell treadwell MD -[facility] Work Phone: Start: 05-03-2025 Non-patient / Non-visit Juanito Varela DO -[facility] Work Phone: Start: 05-01-2025 End: 05-01-2025 ambulatory [facility] Start: 05-01-2025 End: 05-01-2025 Encounter for other preprocedural examination [facility] Start: 05-01-2025 End: 05-01-2025 Patient encounter status [address] Start: 05-01-2025 End: 05-01-2025 Subsequent hospital visit by physician Chanell [id number] [facility] Comment on above: Pre-op testing [...] Start: 04-28-2025 End: 04-28-2025 ambulatory JAZMIN العلي [facility] Start: 04-28-2025 End: 04-28-2025 ambulatory [facility] Start: 03-02-2025 ambulatory [facility] Start: 02-23-2025 End: 02-23-2025 Office outpatient visit 40 minutes 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 Comment on above: High risk medication use (Primary Dx); Essential hypertension, benign; Pacemaker; Persistent atrial fibrillation (Multi); Anticoagulated; Shortness of breath Start: 02-23-2025 End: 02-23-2025 ambulatory CRISTIANA CHAPA [facility] Start: 02-12-2025 End: 02-12-2025 Bamboo flowsheet Joseph Sepulveda DPM Work Phone: [facility] Start: 02-12-2025 End: 02-12-2025 Bamboo flowsheet Joseph Sepulveda DPM Work Phone: [facility] Start: 02-12-2025 End: 02-12-2025 Office outpatient new 30 minutes Joseph Sepulveda DPM Work Phone: [facility] Comment on above: Acquired deformity o f left toe (Primary Dx); Acquired deformity of right toe; Pain due to onychomycosis of toenails of both feet Start: 02-12-2025 End: 02-12-2025 ambulatory JOSEPH SEPULVEDA Not Available Start: 01-30-2025 End: 01-30-2025 ambulatory [facility] Start: 01-30-2025 End: 01-30-2025 Subsequent hospital visit by physician Chanell Bronson [facility] Comment on above: Pacemaker Start: 01-22-2025 End: 01-23-2025 ambulatory Stephanie Mischler Facility:[facility] Start: 01-22-2025 End: 01-23-2025 Evaluation and management of inpatient Jazmin العلي DO Work Phone: [facility] [place] [facility] Work Phone: Start: 01-22-2025 End: 01-23-2025 observation encounter Jazmin العلي DO Work Phone: [facility] Work Phone: Start: 01-21-2025 End: 01-21-2025 ambulatory [facility] Work Phone: Start: 01-21-2025 End: 01-21-2025 Patient encounter procedure [facility] Work Phone: Start: 01-21-2025 Non-patient / Non-visit [facility] Work Phone: Start: 01-09-2025 End: 01-09-2025 ambulatory [facility] Work Phone: Start: 01-09-2025 End: 01-09-2025 Patient encounter procedure [facility] Work Phone: Start: 01-06-2025 End: 01-06-2025 Telemedicine consultation with patient Nigel El MD Work Phone: [facility] Surgery General Comment on above: History of repair of hiatal hernia (Primary Dx) Start: 01-06-2025 End: 01-06-2025 ambulatory NIGEL EL Facility:[facility] Start: 12-31-2024 End: 12-31-2024 Telemedicine consultation with patient Nigel El MD Work Phone: [facility] General Surgery Comment on above: NO SHOW (Primary Dx) Start: 12-31-2024 ambulatory [facility]IGEL EL [facility] Start: 12-30-2024 End: 12-30-2024 Telemedicine consultation with patient Nigel El MD Work Phone: [facility] General Surgery Comment on above: History of repair of hiatal hernia (Primary Dx); NO SHOW Start: 12-30-2024 ambulatory NIGEL Suárez [facility] Start: 12-11-2024 End: 12-11-2024 Telephone encounter Nigel El MD Work Phone: [facility] Surgery General Start: 12-08-2024 End: 12-08-2024 ambulatory NIGEL EL [facility] Start: 12-08-2024 End: 12-08-2024 Subsequent hospital visit by physician Nigel El MD Work Phone: [facility] Comment on above: Diaphragmatic hernia without obstruction or gangrene (Primary Dx); Hiatal hernia; Gastroesophageal reflux disease without esophagitis Start: 11-26-2024 End: 11-26-2024 Orders Only Nigel El MD Work Phone: [facility] Surgery General Start: 11-25-2024 End: 11-25-2024 ambulatory [facility] Comment on above: Heartburn Start: 11-21-2024 End: 11-21-2024 Admission to same day surgery center Katie Yung MD Work Phone: [facility] Gastroenterology Start: 11-12-2024 End: 11-14-2024 ambulatory KATIE YUNG [facility] Start: 11-11-2024 End: 11-11-2024 ambulatory [facility] Comment on above: Food getting stuck i n throat; Swallowing problems Start: 10-23-2024 End: 10-23-2024 Office outpatient visit 40 minutes Maxwell Medrano MD Work Phone: [facility] Comment on above: Pacemaker; Sick sinus syndrome (Multi); Persistent atrial fibrillation (Multi); High risk medication use; 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 (Multi); Essential hypertension, benign; Chronic diastolic heart failure; BMI 27.0-27.9,adult; Never smoked tobacco Start: 10-23-2024 End: 10-23-2024 ambulatory [facility] Start: 10-13-2024 End: 10-13-2024 ambulatory Yesica Astudillo MD Facility:[facility] Start: 10-06-2024 Patient encounter procedure [facility] Start: 10-06-2024 End: 10-06-2024 ambulatory Jazmin Ball DO Work Phone: [facility] Work Phone: Start: 10-06-2024 End: 10-06-2024 Patient encounter procedure Jazmin Ball DO Work Phone: [facility] Work Phone: Start: 10-01-2024 Non-patient / Non-visit Benjam in Ball DO Work Phone[facility] Work Phone: Start: 09-12-2024 End: 09-12-2024 Emergency department patient visit Jazmin Ball DO Work Phone: [facility]-Emergency Room Work Phone: Start: 09-11-2024 End: 09-11-2024 Patient encounter procedure Jazmin Ball DO Work Phone: [facility]XRay [facility] [place] Work Phone: Start: 09-11-2024 End: 09-11-2024 ambulatory Jazmin Ball DO Work Phone: [facility] Work Phone: Start: 09-09-2024 End: 09-09-2024 ambulatory Jazmin Ball DO Work Phone: [facility] Work Phone: Start: 09-09-2024 End: 09-09-2024 Patient encounter procedure Jazmin Ball DO Work Phone: [facility] Work Phone: Start: 09-08-2024 End: 09-08-2024 ambulatory MAXWELL Saad [facility] Start: 09-08-2024 End: 09-08-2024 Subsequent hospital visit by physician Chanell Joseph [facility] Comment on above: Pacemaker; Sick sinus syndrome (Multi) Start: 09-05-2024 End: 09-05-2024 Patient encounter procedure Jazmin العلي DO Work Phone: [facility] Work Phone: Start: 09-05-2024 End: 09-05-2024 ambulatory Jazmin العلي DO Work Phone: [facility] Work Phone: Start: 09-05-2024 End: 09-05-2024 Office outpatient visit 25 minutes Debbie Mac MD Work Phone: [facility] Comment on above: Persistent atrial fi brillation [...] any substance Start: 09-05-2024 End: 09-05-2024 ambulatory [facility] Start: 09-01-2024 End: 09-01-2024 ambulatory Yesica Astudillo MD Facility: [facility] Start: 08-27-2024 End: 08-27-2024 ambulatory Jazmin العلي DO Work Phone: [facility] Work Phone: Start: 08-27-2024 End: 08-27-2024 Patient encounter procedure Jazmin العلي DO Work Phone: [facility] Work Phone: Start: 08-18-2024 End: 08-18-2024 ambulatory KATIE YUNG [facility] Start: 08-18-2024 End: 08-18-2024 Phys/qhp telephone evaluation 11-20 min Katie Yung MD Work Phone: [facility] Gastroenterology Comment on above: Esophageal dysphagia (Primary Dx) Start: 08-04-2024 End: 08-04-2024 ambulatory Yesica Astudillo MD Facility:[facility] Start: 07-31-2024 End: 07-31-2024 Patient encounter procedure Jazmin العلي DO Work Phone: [facility] Work Phone: Start: 07-28-2024 End: 07-28-2024 Office outpatient visit 40 minutes Maxwell Medrano MD Work Phone: [facility] Comment on above: Pacemaker; Persistent atrial fibrillation (Multi); Essential hypertension, benign; Diastolic heart failure, unspecified HF chronicity; High risk medication use; BMI 28.0-28.9,adult; 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 (Multi); Sinus bradycardia; Never smoked any substance; Anticoagulated Start: 07-28-2024 End: 07-28-2024 ambulatory [facility] Ambulatory Start: 07-23-2024 Non-patient / Non-visit Kaveh العلي DO Work Phone: [facility] Gastroenterol Work Phone: Start: 07-22-2024 End: 07-22-2024 Telemedicine consultation with patient Katie Yung MD Work Phone: [facility] Gastroenterology Comment on above: NO SHOW (Primary Dx) Start: 07-22-2024 ambulatory KATIE YUNG [facility] Start: 07-21-2024 Non-patient / Non-visit Benjam in Tyson MORENO Work Phone: [facility] Work Phone: Start: 07-21-2024 End: 07-24-2024 Evaluation and management of inpatient Jazmin Ball DO Work Phone: [facility] [place] [facility] Work Phone: Start: 07-21-2024 End: 07-28-2024 ambulatory Katie Yung MD Work Phone: [facility] Gastroenterology Comment on above: Update Start: 07-21-2024 Non-patient / Non-visit Benjam in Ball DO Work Phone: [facility] Work Phone: Start: 07-09-2024 End: 07-09-2024 ambulatory Jazmin Ball DO Work Phone: [facility] Work Phone: Start: 07-09-2024 End: 07-09-2024 Patient encounter procedure Jazmin Ball DO Work Phone: [facility] Work Phone: Start: 07-07-2024 End: 07-07-2024 ambulatory [facility] Ambulatory Start: 07-02-2024 Non-patient / Non-visit Benjam in Ball DO Work Phone: [facility] Work Phone: Start: 07-02-2024 Non-patient / Non-visit Benjam in Ball DO Work Phone: [facility] Start: 07-01-2024 Non-patient / Non-visit Benjam in Ball DO Work Phone: [facility] Start: 06-30-2024 End: 07-03-2024 Evaluation and management of inpatient Jazmin Ball DO Work Phone: [facility] [place] [facility] Work Phone: Start: 06-26-2024 End: 06-26-2024 ambulatory KATIE YUNG Facility:[facility] Start: 06-26-2024 End: 06-26-2024 Subsequent hospital visit by physician Ip/Op Flouro [address] [facility] Radiology Department Comment on above: Esophageal dysphagia Start: 06-11-2024 End: 06-23-2024 Telephone encounter Katie Yung MD Work Phone: [facility] Gastroenterology Comment on above: Health Information Start: 06-10-2024 End: 06-10-2024 ambulatory DO Jazmin العلي Work Phone: [facility] Work Phone: Start: 06-10-2024 End: 06-10-2024 Patient encounter procedure DO Jazmin العلي Work Phone: [facility] Work Phone: Start: 06-05-2024 End: 06-05-2024 Office outpatient visit 40 minutes Maxwell Medrano MD Work Phone: [facility] Comment on above: Pacemaker; Persistent atrial fibrillation (Multi); Essential hypertension, benign; Diastolic heart failure, unspecified HF chronicity; High risk medication use; BMI 28.0-28.9,adult; 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 (Multi); Sinus bradycardia; Never smoked any substance Start: 06-05-2024 End: 06-05-2024 ambulatory [facility] Ambulatory Start: 05-29-2024 End: 05-29-2024 ambulatory KATIE YUNG Facility:[facility] Start: 05-29-2024 End: 05-29-2024 Subsequent hospital visit by physician Katie Yung MD Work Phone: [facility] Comment on above: Esophageal dysphagia (Primary Dx) Start: 05-28-2024 Non-patient / Non-visit DO Johnson persaud Tyson Work Phone: [facility] Work Phone: Start: 05-19-2024 End: 05-19-2024 ambulatory DO Jazmin العلي Work Phone: [facility] Work Phone: Start: 05-19-2024 End: 05-19-2024 Patient encounter procedure DO Jazmin العلي Work Phone: [facility] Gastroenterology Work Phone: Start: 05-15-2024 End: 05-15-2024 Orders Only Katie Yung MD Work Phone: [facility] Gastroenterology Start: 05-08-2024 End: 05-08-2024 ambulatory DO Jazmin العلي Work Phone: [facility] Work Phone: Start: 05-08-2024 End: 05-08-2024 Patient encounter procedure DO Jazmin العلي Work Phone: [facility] Work Phone: Start: 04-28-2024 End: 04-28-2024 Office outpatient visit 40 minutes Maxwell Medrano MD Work Phone: [facility] Comment on above: Pacemaker (Primary D x); Persistent atrial fibrillation (Multi); Essential hypertension, benign; Diastolic heart failure, unspecified HF chronicity (Multi); High risk medication use; BMI 28.0-28.9,adult; 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 (Multi); Sinus bradycardia; Never smoked any substance Start: 04-24-2024 End: 04-24-2024 Office outpatient visit 25 minutes Debbie Mac MD Work Phone: [facility] Comment on above: Atrial flutter, unsp ecified type (Multi) (Primary Dx); Essential hypertension, benign; Chronic diastolic heart failure (Multi); Mixed hyperlipidemia; Sinus bradycardia; Single vessel coronary artery disease; Anticoagulated; Shortness of breath; Never smoked any substance; BMI 28.0-28.9,adult Start: 04-24-2024 End: 04-24-2024 ambulatory DO Jazmin العلي Work Phone: [facility] Work Phone: Start: 04-24-2024 End: 04-24-2024 Patient encounter procedure DO Jazmin العلي Work Phone: [facility] [place] Work Phone: Start: 04-18-2024 End: 04-18-2024 ambulatory DO Jazmin العلي Work Phone: [facility] Work Phone: Start: 04-18-2024 End: 04-18-2024 Patient encounter procedure DO Jazmin العلي Work Phone: [facility] G[facility] Work Phone: Start: 04-17-2024 End: 04-17-2024 Office outpatient visit 40 minutes Maxwell Medrano MD Work Phone: [facility] Comment on above: High risk medication use (Primary Dx); Pacemaker; Anticoagulation management encounter; Longstanding persistent atrial fibrillation (Multi); Sinus bradycardia; BMI 28.0-28.9,adult; Never smoked any substance Start: 04-08-2024 End: 04-08-2024 ambulatory DO Jazmin العلي Work Phone: [facility] Work Phone: Start: 04-08-2024 End: 04-08-2024 Patient encounter procedure DO Jazmin العلي Work Phone: [facility] Work Phone: Start: 04-07-2024 End: 04-07-2024 ambulatory Yesica Astudillo MD Facility:[facility] Start: 03-31-2024 Non-patient / Non-visit DO Johnson العلي Work Phone: [facility] Work Phone: Start: 03-21-2024 Evaluation and management of inpatient RICHARDSON Joseph [facility] Start: 03-21-2024 Non-patient / Non-visit DO Johnson persaud Ball Work Phone: [facility] Work Phone: Start: 03-21-2024 Non-patient / Non-visit DO Johnson persaud Ball Work Phone: [facility] Work Phone: Start: 02-28-2024 End: 02-28-2024 Office outpatient visit 40 minutes Maxwell Medrano MD Work Phone: [facility] Comment on above: High risk medication use (Primary Dx); Diastolic heart failure, unspecified HF chronicity (Multi); Abnormal EKG; Anticoagulation management encounter; Longstanding persistent atrial fibrillation (Multi); Sinus bradycardia; Pacemaker; BMI 30.0-30.9,adult; Never smoked tobacco Start: 02-25-2024 End: 02-25-2024 Office outpatient visit 40 minutes Debbie Mac MD Work Phone: [facility] Comment on above: Atrial flutter, unsp ecified [...] 02-18-2024 ambulatory DO Jazmin العلي Work Phone: [facility] Work Phone: Start: 02-18-2024 End: 02-18-2024 Patient encounter procedure DO Jazmin العلي Work Phone: [facility]-CT Scan [address] [place] Work Phone: Start: 02-15-2024 End: 02-15-2024 ambulatory DO Jazmin Tyson Work Phone: [facility] Work Phone: Start: 02-15-2024 End: 02-15-2024 Patient encounter procedure DO Jazmin Tyson Work Phone: [facility] Work Phone: Start: 02-08-2024 Non-patient / Non-visit DO Johnson العلي Work Phone: [facility] Out[facility] Work Phone: Start: 02-08-2024 Non-patient / Non-visit DO Johnson العلي Work Phone: [facility] Work Phone: Start: 02-07-2024 Non-patient / Non-visit DO Johnson العلي Work Phone: [facility] Out[facility] Work Phone: Start: 02-07-2024 Non-patient / Non-visit DO Johnson العلي Work Phone: [facility] Work Phone: Start: 01-28-2024 End: 01-28-2024 ambulatory DO Jazmin العلي Work Phone: [facility] Work Phone: Start: 01-28-2024 End: 01-28-2024 Patient encounter procedure DO Jazmin العلي Work Phone: [facility] Work Phone: Start: 01-28-2024 End: 01-28-2024 ambulatory Yesica Astudillo MD Facility: [facility] Start: 01-22-2024 End: 01-22-2024 Professional / ancillary services management Chanell Stroud Cardiology Ecg/[facility] Start: 01-21-2024 Non-patient / Non-visit DO Johnson العلي Work Phone: [facility] Work Phone: Start: 01-18-2024 End: 01-20-2024 Evaluation and management of inpatient DO Jazmin العلي Work Phone: [facility] [place] [facility] Work Phone: Start: 12-17-2023 End: 12-17-2023 ambulatory Yesica Astudillo MD Facility: [facility] Start: 11-27-2023 End: 11-27-2023 ambulatory DO Jazmin Ball Work Phone: [facility] Work Phone: Start: 11-27-2023 End: 11-27-2023 Patient encounter procedure DO Jazmin العلي Work Phone: [facility] Work Phone: Start: 11-22-2023 End: 11-22-2023 ambulatory DO Jazmin العلي Work Phone: [facility] Work Phone: Start: 11-22-2023 End: 11-22-2023 Patient encounter procedure DO Jazmin العلي Work Phone: [facility]-Pacemaker Check Start: 11-21-2023 End: 11-21-2023 ambulatory DO Jazmin العلي Work Phone: [facility] Work Phone: Start: 11-21-2023 End: 11-21-2023 Patient encounter procedure DO Jazmin العلي Work Phone: [facility]-MRI [facility] [place] Work Phone: Start: 09-24-2023 End: 09-24-2023 ambulatory DO Jazmin العلي Work Phone: [facility] Work Phone: Start: 09-24-2023 End: 09-24-2023 Patient encounter procedure DO Jazmin العلي Work Phone: [facility]-Pacemaker Check Start: 09-19-2023 End: 09-19-2023 Office outpatient visit 25 minutes Debbie Mac MD Work Phone: [facility] Comment on above: Persistent atrial fi brillation (CMS/HCC) (Primary Dx); 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); Chronic diastolic heart failure (CMS/HCC); Essential hypertension, benign; Mixed hyperlipidemia; Pacemaker; Sinus bradycardia; Single vessel coronary artery disease Start: 2023 End: 2023 ambulatory DO Jazmin العلي Work Phone: [facility] Work Phone: Start: 2023 End: 2023 Patient encounter procedure DO Jazmin العلي Work Phone: [facility]-Pacemaker Check Start: 08-24-2023 End: 08-24-2023 ambulatory Jazmin العلي Other Locationary Other Start: 08-24-2023 Telephone encounter Jazmin العلي [facility]علي [facility] Start: 08-21-2023 End: 08-21-2023 Subsequent hospital visit by physician Chanell Stroud Echo/Vasc Room 2 [facility] Comment on above: Chronic diastolic he art failure (CMS/HCC); Essential hypertension, benign; Dyspnea, unspecified type Start: 08-19-2023 End: 08-19-2023 ambulatory Negin Garcia Other Locationary Other Start: 08-19-2023 Patient encounter procedure Negin Garcia [facility] Start: 08-19-2023 End: 08-19-2023 Patient encounter procedure DO Jazmin العلي Work Phone: [facility] [place] Work Phone: Start: 07-25-2023 End: 07-25-2023 Patient encounter procedure DO Jazmin العلي Work Phone: [facility] Work Phone: Start: 06-29-2023 End: 06-29-2023 ambulatory Jazmin العلي Other Locationary Other Start: 06-29-2023 Nursing evaluation o f patient and report Jazmin العلي [facility] Start: 05-31-2023 End: 05-31-2023 Office outpatient visit 25 minutes Debbie Mac MD Work Phone: [facility] Comment on above: Persistent atrial fi brillation (CMS/HCC) (Primary Dx); 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); Chronic diastolic heart failure (CMS/HCC); Essential hypertension, benign; Hyperlipidemia, unspecified hyperlipidemia type; Pacemaker; Sinus bradycardia; Anticoagulated; Class 1 obesity due to excess calories without serious comorbidity with body mass index (BMI) of 32.0 to 32.9 in adult; Stage 3a chronic kidney disease ([facility]); Dyspnea, unspecified type Start: 05-25-2023 End: 05-25-2023 ambulatory Jazmin العلي Other Locationary Other Start: 05-25-2023 Telephone encounter Jazmin [facility] Start: 04-20-2023 Rx Renewal Jazmin Hahn Bal l Work Phone: [facility]Port 250 DO Work Phone: Start: 04-18-2023 Rx Renewal Jazmin Hahn Bal l Work Phone: [facility] [address] DO Work Phone: Start: 04-12-2023 End: 04-12-2023 ambulatory Jazmin العلي Other Locationary Other Start: 04-12-2023 Telephone encounter Jazmin [facility]لي [facility] Start: 04-10-2023 End: 04-10-2023 ambulatory Jazmin العلي Other Locationary Other Start: 04-10-2023 Telephone encounter Jazmin SIMMONS [facility] Start: 03-21-2023 End: 03-21-2023 ambulatory Jazmin العلي Other Locationary Other Start: 03-21-2023 Patient encounter procedure Jazmin [facility]لي [facility] Start: 03-13-2023 End: 03-13-2023 ambulatory Jazmin العلي Other Locationary Other Start: 03-13-2023 Telephone encounter Jazmin [facility]S [facility] Start: 03-05-2023 Telephone encounter Jazmin SIMMONS [facility] Start: 03-05-2023 End: 03-05-2023 Admission to same day surgery center DO Jazmin Ball Work Phone: [facility]gery Center [facility] [place] Start: 03-05-2023 End: 03-05-2023 ambulatory DO Jazmin Tyson Work Phone: [facility] Work Phone: Start: 02-26-2023 End: 02-26-2023 ambulatory DO Jazmin العلي Work Phone: [facility] Work Phone: Start: 02-26-2023 End: 02-26-2023 Patient encounter procedure DO Jazmin Tyson Work Phone: [facility]-Pre-Surgical Testing Work Phone: Start: 02-26-2023 Rx Renewal Jazmin Moyer l Work Phone: [facility]-Tri 250 DO Work Phone: Start: 01-25-2023 Office outpatient vi sit 25 minutes Jazmin العلي Work Phone: [facility] Work Phone: Start: 01-09-2023 End: 01-09-2023 Admission to same day surgery center DO Jazmin Tyson Work Phone: [facility]-Trailer Technician Work Phone: Start: 01-03-2023 End: 01-04-[address] JAZMIN العلي Facility:[facility] Start: 01-02-2023 End: 01-03-[address] JAZMIN العلي Facility:[facility] Start: 12-25-2022 Office outpatient ne w 45 minutes Jazmin العلي Work Phone: [facility] Work Phone: Start: 12-25-[address] Jazmin العلي Facility:[id number] Start: 12-11-2022 End: 12-11-2022 ambulatory DO Jazmin العلي Work Phone: [facility] Work Phone: Start: 12-11-2022 End: 12-11-2022 Patient encounter procedure DO Jazmin العلي Work Phone: [facility]-Pacemaker Check Start: 11-27-2022 Telephone encounter Jazmin SIMMONS [facility] Start: 11-27-2022 End: 11-27-2022 Admission to same day surgery center DO Jazmin العلي Work Phone: [facility]-Surgery Center [address] [place] Start: 11-27-2022 End: 11-27-2022 ambulatory DO Jazmin العلي Work Phone: Locationary Other Start: 11-20-2022 End: 11-20-2022 ambulatory DO Jazmin العلي Work Phone: [facility] Work Phone: Start: 11-20-2022 End: 11-20-2022 Patient encounter procedure DO Jazmin العلي Work Phone: [facility]-Pre-Surgical Testing Work Phone: Start: 10-30-2022 Telephone encounter Jazmin SIMMONS Jake [facility] Start: 10-30-2022 End: 10-30-2022 ambulatory DO Jazmin العلي Work Phone: [facility] Work Phone: Start: 10-30-2022 End: 10-30-2022 Patient encounter procedure DO Jazmin العلي Work Phone: [facility]-CT [address] Work Phone: Start: 10-24-2022 End: 10-24-2022 ambulatory Rachel Larios Other Locationary Other Start: 10-24-2022 Office outpatient vi sit 15 minutes Rachel العلي [facility] Start: 10-16-2022 End: 10-17-[address] JAZMIN العلي Facility: Start: 10-13-2022 Office outpatient vi sit 25 minutes Jazmin العلي Work Phone: [facility] 250 DO Work Phone: Start: 10-10-2022 End: 10-10-2022 ambulatory Jazmin العلي Other [place] [employer] Other Start: 10-10-2022 Telephone encounter Jazmin العلي [facility] Start: 09-27-2022 Patient encounter procedure Jazmin Jovani Ball Work Phone: [facility]-[place] [address] DO Work Phone: Start: 09-24-2022 End: 09-24-2022 ambulatory Jazmin العلي Other [place] [employer] Other Start: 09-24-2022 Telephone encounter Jazmin العلي IR[facility] Jake [facility]علي [facility] Start: 09-17-2022 End: 09-21-2022 Evaluation and management of inpatient DO Jazmin العلي Work Phone: [facility] [place] [facility] Work Phone: Start: 09-12-2022 End: 09-12-2022 ambulatory aJzmin العلي Other Locationary Other Start: 09-12-2022 Office outpatient vi sit 25 minutes Jazmin العلي [facility] Start: 09-11-2022 End: 09-11-2022 ambulatory DO Jazmin العلي Work Phone: [facility] Work Phone: Start: 09-11-2022 End: 09-11-2022 Patient encounter procedure DO Jazmin العلي Work Phone: [facility]-Pacemaker Check Start: 09-08-2022 End: 09-08-2022 ambulatory Jazmin العلي Other [facility] Other Start: 09-08-2022 Telephone encounter Jazmin العلي [facility] Start: 09-01-2022 End: 09-06-2022 Evaluation and management of inpatient DO Jazmin العلي Work Phone: [facility] [place] [facility] Work Phone: Start: 08-25-2022 Telephone encounter Jazmin Jovani Ball Work Phone: [facility] 250 DO Work Phone: Start: 08-24-2022 Patient encounter procedure Jazmin العلي Work Phone: [facility] 250 DO Work Phone: Start: 06-26-2022 Office outpatient vi sit 25 minutes Jazmin العلي Work Phone: [facility] 250 DO Work Phone: Start: 06-09-2022 End: 06-09-2022 ambulatory DO Jazmin العلي Work Phone: [facility] Work Phone: Start: 06-09-2022 End: 06-09-2022 Patient encounter procedure DO Jazmin العلي Work Phone: [facility]-Pacemaker Check Start: 05-12-2022 End: 05-13-[address] JAZMIN العلي Facility:[facility] Start: 05-01-2022 Adult health examination Jazmin العلي Other [facility] Other Start: 04-27-2022 End: 04-27-2022 ambulatory John Mims Other [place] [employer] Other Start: 04-27-2022 Office outpatient vi sit 25 minutes John Mims [facility] Start: 04-20-2022 End: 04-20-[address] RACHEL LARIOS Facility:[facility] Start: 03-27-2022 Rx Renewal Jazmin rosen Work Phone: [facility] 250 DO Work Phone: Start: 03-16-2022 End: 03-16-2022 ambulatory John Mims Other [place] [employer] Other Start: 03-16-2022 Telephone encounter John feliciano [facility] Start: 03-10-2022 Office outpatient vi sit 25 minutes Jazmin E Ball Work Phone: [facility] 250 DO Work Phone: Start: 03-09-2022 End: 03-09-2022 Patient encounter procedure DO Jazmin Ball [facility] Start: 03-09-2022 End: 03-09-2022 Patient encounter procedure DO Jazmin Ball Work Phone: [facility]-Pacemaker Check Start: 02-28-2022 End: 02-28-2022 ambulatory John Mims Other [facility] Other Start: 02-28-2022 Office outpatient vi sit 25 minutes John Mims [facility] Gastroenterology Start: 02-16-2022 End: 02-16-2022 Patient encounter procedure DO Jazmin Ball Work Phone: [facility] Start: 01-25-2022 End: 01-26-[address] Wolf MIMS Facility:[facility] Start: 01-19-2022 End: 01-19-2022 Patient encounter procedure DO [facility] Start: 01-11-2022 End: 01-12-[address] JAZMIN العلي Facility:[facility] Start: 01-03-2022 End: 01-03-2022 Patient encounter procedure DO Jazmin Ball Work Phone[facility] Start: 12-30-2021 End: 12-30-2021 Patient encounter procedure DO Jazmin Ball Work Phone: [facility]-Pre-Surgical Testing Start: 11-21-2021 End: 11-21-2021 Patient encounter procedure DO Jazmin Ball Work Phone: [facility]-Pacemaker Check Start: 10-19-2021 Office outpatient vi sit 25 minutes Jazmin E Ball Work Phone: [facility] 250 DO Work Phone: Start: 08-15-2021 Patient encounter procedure Jazmin E Ball Work Phone: [facility] 250 DO Work Phone: Start: 07-26-2021 Rx Renewal Jazmin Moyer l Work Phone: [facility] 250 DO Work Phone: Start: 07-06-2021 Postop follow up vis it related to original px Jazmin العلي Work Phone: [facility] 250 DO Work Phone: Start: 06-28-2021 Chart Update Jazmin Moyer l Work Phone: [facility] [address] [place] Work Phone: Start: 06-26-2021 Chart Update Jazmin Moyer l Work Phone: [facility] [address] [place] Work Phone: Start: 06-24-2021 Chart Update Jazmin Moyer l Work Phone: [facility] [address] [place] Work Phone: Start: 06-24-2021 Chart Update Jazmin Hahn Bal l Work Phone: [facility] [address] [place] Work Phone: Start: 06-23-2021 Chart Update Jazmin Moyer l Work Phone: [facility] [address] [place] Work Phone: Start: 06-23-2021 SURGNONUH, Provider: Debbie Mac, Status: Pen, Time: 10:00 AM Jazmin العلي Work Phone: [facility] [address] [place] Work Phone: Start: 06-22-2021 Chart Update Jazmin Moyer l Work Phone: [facility] [address] [place] Work Phone: Start: 06-13-2021 Telephone encounter Jazmin العلي Work Phone: [facility] [address] [place] Work Phone: Start: 06-06-2021 Patient encounter procedure Jazmin العلي Work Phone: [facility] DO Work Phone: Start: 05-25-2021 Telephone encounter Debbie singletary MD Work Phone: [facility] 250 DO Work Phone: Start: 07-26-2020 End: 07-31-2020 Evaluation and management of inpatient JAZMIN العلي Facility:[facility] Procedures Date Procedure Procedure Detail Performing Clinician Start: 05-28-2025 VERAB/VERIFY JEWELH Joi Carlisle COUNTER POCKET SEWER-CONTINUOUS STILL OPERATOR Work Phone: Start: 05-28-2025 Basic metabolic panel calcium total Joi Carlisle COUNTER POCKET SEWER-CONTINUOUS STILL OPERATOR Work Phone: Start: 05-28-2025 Blood typing serologic rh (d) Joi Carlisle COUNTER POCKET SEWER-CONTINUOUS STILL OPERATOR Work Phone: Start: 05-28-2025 Ecg routine ecg w/least 12 lds trcg only w/o i&r Joi Carlisle COUNTER POCKET SEWER-CONTINUOUS STILL OPERATOR Work Phone: Start: 05-26-2025 Ecg routine ecg w/least 12 lds w/i&r Debbie Mac MD Work Phone: Start: 05-19-2025 Rem interrog pm/ldls pm/ids <90 d tech review Maxwell Medrano MD Work Phone: Start: 05-04-2025 Urine culture Jazmin العلي DO Work Phone: Start: 05-01-2025 Creatinine blood Maxwell Medrano MD Work Phone: Start: 01-30-2025 Rem interrog pm/ldls pm/ids <90 d tech review Maxwell Medrano MD Work Phone: Start: 01-22-2025 Plain chest X-ray Jazmin Ball DO Work Phone: Start: 09-12-2024 Viral nucleic acid assay Jazmin العلي D O Work Phone: Start: 09-12-2024 CT of chest without contrast Jazmin Victorino ll DO Work Phone: Start: 09-11-2024 Plain chest X-ray Jazmin العلي DO Work Phone: Start: 09-05-2024 Ecg routine ecg w/least 12 lds w/i&r Debbie Mac MD Work Phone: Start: 09-05-2024 X-ray of cervical spine Jazmin العلي DO Work Phone: Start: 09-05-2024 X-ray of thoracic spine, two views George العلي DO Work Phone: Start: 06-30-2024 CT of head without contrast Jazmin João l DO Work Phone: Start: 06-30-2024 Plain [...] abdomen and pelvis with contrast DO Jazmin Ball Work Phone: Start: 01-22-2024 Ecg routine [...] Work Phone: Start: 09-17-2022 Urine culture DO Jazmni Ball Work Phone: Start: 09-17-2022 Plain chest X-ray DO Jazmin Ball Work Phone: Start: 09-02-2022 CT of chest without contrast DO Jazmin العلي Work Phone: Start: 09-01-2022 CT of head without contrast DO Jazmin العلي Work Phone: Start: 09-01-2022 Urine culture DO Jazmin العلي Work Phone: Start: 09-01-2022 Plain chest X-ray DO Jazmin العلي Work Phone: Start: 03-09-2022 DH Fibroscan DO Jazmin العلي Work Phone: Start: 01-03-2022 Esophageal manometry DO Jazmin العلي Work Phone: Start: 07-30-2020 MEASUREMENT OF CARDIAC TOTAL ACTIVITY, EXTERNAL APPROACH TANNER HERRERA Start: 07-28-2020 INTRODUCTION OF OTHER GAS INTO RESP TRACT, VIA OPENING JELANI WOO Start: 07-28-2020 Orthodox of Cardiac Rhythm, Single SANJUANA CARRERO Start: [...] DTaP/Tdap/Td Vaccines (2 - Td or Tdap) [facility] Start: 07-11-2031 DTaP/Tdap/Td Vaccines (3 - Td or Tdap) DTaP/Tdap/Td Vaccines (3 - Td or Tdap) [facility] Start: 07-11-2031 Tetanus vaccination Tetanus (Td or Tdap) [facility] Start: 05-28-2026 Creatinine measurement Creatinine Level [facility] Start: 05-28-2026 Diabetes mellitus screening Diabetes Screening [facility] Start: 05-28-2026 Potassium measurement Potassium Level [facility] Start: 05-03-2026 Echocardiography Echocardiogram [facility] Start: 04-28-2026 Creatinine measurement Creatinine Level [facility] Start: 04-28-2026 Diabetes mellitus screening Diabetes Screening [facility] Start: 04-28-2026 Potassium measurement Potassium Level [facility] Start: 12-31-2025 End: 12-31-2025 Patient encounter procedure 12/31/2025 3:30 PM EDT Off ice Visit [facility] [address] [facility] [address] [place] [address] Debbie Mac MD [id number] [facility] [address], [address] [place] [address] [facility] Start: 07-28-2025 End: 05-28-2026 Holter monitor study Holter Or Event Cake Decorator Cardiac Services Routine Persistent atrial fibrillation (Multi) Expected: 07/28/2025 (Approximate), Expires: 05/28/2026 [facility] Work Phone: Comment on above: Expected: 07/28/2025 (Approximate), Expi res: 05/28/2026 Start: 07-23-2025 End: 07-23-2025 Patient encounter procedure 07/23/2025 4:20 PM EST Procedure Visit [facility] [address] [place] [phone] Joseph Sepulveda DPM [address] [facility] [address] [place] [address] [facility] Start: 06-28-2025 End: 05-28-2026 Holter monitor study Holter Or Event Cake Decorator Cardiac Services Routine Persistent atrial fibrillation (Multi) Expected: 06/28/2025 (Approximate), Expires: 05/28/2026 [facility] Work Phone: Comment on above: Expected: 06/28/2025 (Approximate), Expi res: 05/28/2026 Start: 05-29-2025 End: 05-29-2025 Patient encounter procedure 05/29/2025 2:15 PM EDT Off ice Visit [facility] [address] [address] Maxwell Medrano MD [address] [address] [facility] Start: 05-28-2025 End: 05-28-2026 Holter monitor study Holter Or Event Cake Decorator Cardiac Services Routine Persistent atrial fibrillation (Multi) Expected: 05/28/2025 (Approximate), Expires: 05/28/2026 [facility] Work Phone: Comment on above: Expected: 05/28/2025 (Approximate), Expi res: 05/28/2026 Start: 05-28-2025 End: 05-28-2025 Patient encounter procedure 05/28/2025 9:00 AM EDT Appointment [facility] [address] [place] [place] [address] Hardy Betancourt MD [address] [address] [facility] Start: 05-28-2025 End: 05-28-2025 Admission to same day surgery center [facility] Comment on above: Ablation A-Fib [71105 (CPT )] Start: 05-28-2025 Subsequent hospital visit by physician [facility] Comment on above: Persistent atrial fibrillation (Multi) Start: 05-27-2025 End: 05-27-2025 Patient encounter procedure 05/27/2025 11:30 AM EDT Appointment [facility] [address] [place] [phone] Arron Veloz MD [address] [facility] Medical [facility] Bldg, [address] [place], [place] [id number] [facility] Start: 05-26-2025 End: 05-26-2025 Patient encounter procedure 05/26/2025 2:40 PM EDT Off ice Visit [facility] 703 [facility] [address] [place] [address] Debbie Mac MD 703 [facility] 2, [address] [place] [address] [facility] Start: 05-26-2025 End: 05-26-2026 Aspartate aminotransferase [Enzymatic activity/volume] in Serum or Plasma by With P-5'-P Aspartate Aminotransferase Lab Routine Single vessel coronary artery disease High risk medication use Persistent atrial fibrillation (Multi) Expected: 05/26/2025 (Approximate), Expires: 05/26/2026 [facility] Service Area Work Phone: Comment on above: Expected: 05/26/2025 (Approximate), Expi res: 05/26/2026 Start: 05-26-2025 End: 05-26-2026 Complete Pulmonary Function Test (Spirometry/DLCO/Lung Volumes) Complete Pulmonary Function Test (Spirometry/DLCO/Lung Volumes) PFT Routine High risk medication use Persistent atrial fibrillation (Multi) Atrial flutter, unspecified type (Multi) Expected: 05/26/2025 (Approximate), Expires: 05/26/2026 [facility] Work Phone: Comment on above: Expected: 05/26/2025 (Approximate), Expi res: 05/26/2026 Start: 05-26-2025 End: 05-26-2026 Thyrotropin [Units/volume] in Serum or Plasma Thyroid Stimulating Hormone Lab Routine Single vessel coronary artery disease High risk medication use Persistent atrial fibrillation (Multi) Expected: 05/26/2025 (Approximate), Expires: 05/26/2026 [facility] Work Phone: Comment on above: Expected: 05/26/2025 (Approximate), Expi res: 05/26/2026 Start: 05-21-2025 End: 05-21-2025 Patient encounter procedure 05/21/2025 11:15 AM EDT Office Visit [facility] [address] [facility] [address] [place] [address] Maxwell Medrano MD [address] [facility] [address] [place] [address] [facility] Start: 05-21-2025 End: 05-21-2025 Professional / ancillary services management 05/21/2025 11:00 AM EDT [facility] [address] [facility] 120 [place] [address] [facility] Start: 05-20-2025 Influenza vaccination Influenza Vaccine (#1) [facility] Start: 05-07-2025 End: 05-07-2025 Patient encounter procedure [facility] Comment on above: Cellulitis of left foot (Primary Dx); Acquired deformity of left toe; Acquired deformity of right toe Start: 05-04-2025 Bacteria identified in Urine by Culture Urine Culture [facility] Start: 05-04-2025 Urine culture [facility] Start: 04-25-2025 End: 10-23-2025 Cardiac Device Check - In Clinic Cardiac Device Check - In Clinic Implantable Cardiac Device Routine Pacemaker Expected: 04/25/2025 (Approximate), Expires: 10/23/2025 [facility] Work Phone: Comment on above: Expected: 04/25/2025 (Approximate), Expi res: 10/23/2025 Start: 04-23-2025 End: 04-23-2025 Patient encounter procedure 04/23/2025 11:30 AM EDT Procedure Visit [facility] [address] [facility] [address] [place] [address] Joseph Sepulveda DPM 6[address] [facility] 5 [place] [address] [facility] Start: 04-20-2025 COVID-19 Vaccine ( season) COVID-19 Vaccine ( season) [facility] Start: 04-20-2025 COVID-19 Vaccine ( season) COVID-19 Vaccine ( season) [facility] Start: 04-20-2025 Influenza vaccination [facility] Start: 03-27-2025 Creatinine measurement Creatinine Level [facility] Start: 03-27-2025 Diabetes mellitus screening Diabetes Screening [facility] Start: 03-27-2025 Potassium measurement Potassium Level [facility] Start: 03-05-2025 End: 03-05-2025 Patient encounter procedure 03/05/2025 3:00 PM EDT Off ice Visit [facility] 703 [facility] 250 [place] [address] Debbie Mac MD 703 [facility], [address] [place] [address] [facility] Start: 02-23-2025 End: 02-23-2025 Patient encounter procedure 02/23/2025 3:00 PM EDT Off ice Visit [facility] [address] [address] Cristiana Chapa, COUNTER POCKET SEWER-CONTINUOUS STILL OPERATOR 917 [facility] 130 [place] [address] [facility] Start: 02-12-2025 End: 02-12-2025 Patient encounter procedure 02/12/2025 10:30 AM EDT Office Visit [facility] [address] [facility] [address] [place] [phone] Joseph Sepulveda DPM 3006 [facility] 5 [place] [address] Arrived [facility] Comment on above: Arrived Start: 02-06-2025 Echocardiography Echocardiogram [facility] Start: 02-01-2025 [facility] Start: 01-31-2025 [facility] Start: 01-30-2025 [facility] Start: 01-29-2025 [facility] Start: 01-28-2025 [facility] Start: 01-27-2025 [facility] Start: 01-26-2025 Comprehensive metabolic 2000 panel - Serum or Plasma [facility] Start: 01-26-2025 [facility] Start: 01-25-2025 Comprehensive metabolic 2000 panel - Serum or Plasma [facility] Start: 01-25-2025 [facility] Start: 01-24-2025 Comprehensive metabolic 2000 panel - Serum or Plasma [facility] Start: 01-24-2025 [facility] Start: 01-23-2025 End: 01-23-2025 [facility] Start: 01-22-2025 Hospital admission [facility] Start: 01-22-2025 Referral to side door man [facility] Start: 01-22-2025 [facility] Start: 01-18-2025 Echocardiography Echocardiogram [facility] Start: 12-31-2024 End: 12-31-2024 Telemedicine consultation with patient 12/31/2024 8:45 AM EDT Telemedicine [facility] General Surgery [address] [place] [address] Nigel El MD [address] [place], [place] [phone] [facility] General Surgery Start: 12-30-2024 End: 12-30-2024 Telemedicine consultation with patient 12/30/2024 10:00 AM EDT Telemedicine [facility] General Surgery [address] [place] [address] Nigel El MD [address] [place] [address] [facility] General Surgery Start: 12-16-2024 End: 12-16-2024 Telemedicine consultation with patient 12/16/2024 2:15 PM EDT Telemedicine [facility] Surgery General [address] [place] [address] Nigel El MD [address] [place] [address] [facility] Surgery General Start: 12-08-2024 End: 12-08-2024 Admission to same day surgery center 12/08/2024 10:32 AM EDT - 12/08/2024 11:02 AM EDT Surgery [facility] [address] [place] [address] Nigel El MD [address] [place] [address] ESOPHAGOGASTRODUOD[facility]OSCOPY [facility] Comment on above: ESOPHAGOGASTRODUODENOSCOPY WITH ENDOFLIP Start: 12-08-2024 Subsequent hospital visit by physician 12/08/2024 10:32 AM EDT Hospital Encounter [facility] [address] [place] [address] Nigel El MD [address] [place] [address] [facility] Start: 12-08-2024 End: [...] fibrillation (Multi) Expected: 10/23/2024 (Approximate), Expires: 10/23/2025 [facility] Work Phone: Comment on above: Expected: 10/23/2024 (Approximate), Expi res: 10/23/2025 Start: 10-23-2024 End: 10-23-2025 CBC panel - Blood by Automated count CBC Lab Routine Persistent atrial fibrillation (Multi) Expected: 10/23/2024 (Approximate), Expires: 10/23/2025 [facility] Work Phone: Comment on above: Expected: 10/23/2024 (Approximate), Expi res: 10/23/2025 Start: 10-23-2024 End: 10-23-2025 Creatinine [Mass/volume] in Serum or Plasma Creatinine, Serum Lab Routine Persistent atrial fibrillation (Multi) High risk medication use Expected: 10/23/2024 (Approximate), Expires: 10/23/2025 [facility] Work Phone: Comment on above: Expected: 10/23/2024 (Approximate), Expi res: 10/23/2025 Start: 10-23-2024 End: 10-23-2025 CT Heart for congenital disease W contrast IV CT heart structure morphology congenital heart disease w IV contrast Imaging Routine Persistent atrial fibrillation (Multi) Expected: 10/23/2024, Expires: 10/23/2025 [facility] Work Phone: Comment on above: Expected: 10/23/2024, Expires: Start: 10-23-2024 End: 10-23-2025 Prothrombin time (PT) Protime-INR Lab Routine Persistent atrial fibrillation (Multi) Expected: 10/23/2024 (Approximate), Expires: 10/23/2025 [facility] Work Phone: Comment on above: Expected: 10/23/2024 (Approximate), Expi res: 10/23/2025 Start: 10-23-2024 End: 10-23-2025 US Heart Transesophageal Transesophageal Echo (VIRA) Echocardiography Routine Persistent atrial fibrillation (Multi) Expected: 10/23/2024, Expires: 10/23/2025 [facility] Work Phone: Comment on above: Expected: 10/23/2024, Expires: Start: 10-23-2024 End: 10-23-2024 Professional / ancillary services management 10/23/2024 12:20 PM EST Ancillary Procedure [facility] [address] [facility] [address] [place] [address] [facility] Start: 10-23-2024 End: 10-23-2024 Patient encounter procedure 10/23/2024 11:00 AM EST Office Visit [facility] [address] [facility] [address] [place] [address] Maxwell Medrano MD 917 [facility] [address] [place] [address] [facility] Start: 09-05-2024 End: 09-05-2025 Complete Pulmonary Function [...] medication use Expected: 09/05/2024 (Approximate), Expires: 09/05/2025 [facility] Work Phone: Comment on above: Expected: 09/05/2024 (Approximate), Expi res: 09/05/2025 Start: 09-04-2024 End: 09-04-2024 Patient encounter procedure 09/04/2024 1:50 PM EST Off ice Visit [facility] [address] [place] [address] Debbie Mac MD [address], [address] [place] [address] [facility] Start: 08-21-2024 Echocardiography Echocardiogram [facility] Start: 07-24-2024 [facility] Start: 07-23-2024 Referral to pretzel cooker [facility] Start: 07-22-2024 Administration of prophylactic treatment [facility] Start: 07-21-2024 [facility] Start: 07-21-2024 Referral to side door man [facility] Start: 07-21-2024 Hospital admission [facility] Start: 07-07-2024 End: 07-07-2024 Patient encounter procedure 07/07/2024 10:30 AM EST Office Visit [facility] [address] [facility] [address] [place] [address] Cristiana Chapa, COUNTER POCKET SEWER-CONTINUOUS STILL OPERATOR [address] [facility] [address] [place] [address] [facility] Start: 07-03-2024 [facility] Start: 07-01-2024 [facility] Start: 07-01-2024 [facility] Start: 06-30-2024 [facility] Start: 06-30-2024 Physical therapy procedure [facility] Start: 06-30-2024 Referral to side door man [facility] Start: 06-30-2024 Referral to occupational therapist [facility] Start: 06-30-2024 End: 06-30-2024 [facility] Start: 06-30-2024 Hospital admission [facility] Start: 06-26-2024 Subsequent hospital visit by physician 06/26/2024 11:00 AM EST Hospital Encounter [facility] Radiology Department [address] [place] [address] [facility] Radiology Department Start: 06-05-2024 End: 06-05-2024 Patient encounter procedure 06/05/2024 12:00 PM EDT Office Visit [facility] [place] [address] [place] [address] Maxwell Medrano MD [address] [place] [address] [facility] Start: 05-16-2024 End: 05-16-2024 Patient encounter procedure 05/16/2024 10:00 AM EDT Office Visit [address] [place] [address] Debbie Mac MD 703 [facility] 2, [address] [place] [address] [facility] Start: 04-28-2024 End: 04-28-2024 Patient encounter procedure 04/28/2024 11:30 AM EDT Office Visit [facility] [place] [address] [place] [address] Maxwell Medrano MD [address] [place] [address] [facility] Start: 04-24-2024 End: 04-24-2024 Patient encounter procedure 04/24/2024 3:10 PM EDT Off ice Visit [address] [place] [address] Debbie Mac MD 703 [facility] 2, [address] [place] [address] [facility] Start: 04-20-2024 COVID-19 Vaccine ( season) COVID-19 Vaccine ( season) [facility] Start: 04-20-2024 COVID-19 Vaccine ( season) COVID-19 Vaccine ( season) [facility] Start: 04-20-2024 COVID-19 Vaccine ( season) COVID-19 Vaccine ( season) [facility] Start: 04-20-2024 Influenza vaccination Influenza Vaccine (#1) [facility] Start: 04-17-2024 End: 04-17-2025 Digoxin [Mass/volume] in [...] 04/07/2024 9:45 AM EDT Off ice Visit [address] [address] Maxwell Medrano MD [address] [place] [address] [facility] Start: 03-25-2024 End: 03-25-2024 Patient encounter procedure 03/25/2024 2:40 PM EDT Off ice Visit [facility] [address] [address] Debbie Mac MD [address] [place] [address], [facility] 250 [place] [address] [facility] Start: 03-17-2024 End: 03-17-2024 Patient encounter procedure 03/17/2024 12:30 PM EDT Office Visit [address] [address] Maxwell Medrano MD [address] [place] [address] [facility] Start: 02-28-2024 End: 02-24-2025 ECG 12 Lead ECG 12 Lead ECG Routine Persistent atrial fibrillation (Multi) Expected: 02/28/2024 (Approximate), Expires: 02/24/2025 [facility] Service Area Work Phone: Comment on above: Expected: 02/28/2024 (Approximate), Expi res: 02/24/2025 Start: 02-28-2024 End: 02-28-2024 Professional / ancillary services management 02/28/2024 1:00 PM EDT Ancillary Procedure [facility] [address] [place] [address] [facility] Start: 01-20-2024 [facility] Start: 01-19-2024 [facility] Start: 01-18-2024 Referral to side door man [facility] Start: 01-18-2024 [facility] Start: 01-18-2024 Hospital admission [facility] Start: 11-28-2023 End: 11-28-2023 Patient encounter procedure 11/28/2023 3:10 PM EDT Off ice Visit [facility] [address] [place] [address] Debbie Mac MD [address], [address] [place] [address] [facility] Start: 09-19-2023 End: 09-19-2023 Patient encounter procedure 09/19/2023 1:00 PM EST Off ice Visit [facility] [address] [place] [address] Debbie Mac MD [address], [address] [place] [address] [facility] Start: 09-02-2023 Echocardiography Echocardiogram [facility] Start: 08-20-2023 Annual wellness visit Annual Wellness Visit ([id number]) [facility] Start: 07-05-2023 End: 07-05-2023 Patient encounter procedure 07/05/2023 1:30 PM EST Appointment [facility] [address] [place] [address] [facility] Start: 05-31-2023 FUV, Provider: Debbie Mac, Status: Pen, Time: 3:00 PM FUV, Provider: Debbie Mac, Status: Pen, Time: 3:00 PM [facility] Work Phone: Start: 05-31-2023 End: 05-31-2025 [...] Maxwell Medrano, Status: Pen, Time: 4:00 PM [facility] 250 DO Work Phone: Start: 04-20-2023 COVID-19 Vaccine ( season) COVID-19 Vaccine ( season) [facility] Start: 04-20-2023 Influenza vaccination Influenza Vaccine (#1) [facility] Start: 04-04-2023 FUV, Provider: Maxwell Medrano, Status: Pen, Time: 3:00 PM FUV, Provider: Maxwell Medrano, Status: Pen, Time: 3:00 PM [facility] 250 DO Work Phone: Start: 03-05-2023 [facility] Start: 03-05-2023 [facility] Start: 02-14-2023 FUV, Provider: Maxwell Medrano, Status: Pen, Time: 1:30 PM [facility]UV, Provider: Maxwell Medrano, Status: Pen, Time: 1:30 PM [facility] Work Phone: Start: 01-09-2023 [facility] Start: 01-04-2023 FUV, Provider: Debbie Mac, Status: Pen, Time: 1:50 PM [facility]UV, Provider: Debbie Mac, Status: Pen, Time: 1:50 PM [facility] DO Work Phone: Start: 11-27-2022 Laparoscopic cholecystectomy OR Cholecystectomy Laparoscopic (Not Applicable) [facility] Start: 11-27-2022 End: 11-27-2022 [facility] Start: 10-13-2022 FUV, Provider: Debbie Mac, Status: Pen, Time: 10:30 AM FUV, Provider: Debbie Mac, Status: Pen, Time: 10:30 AM [facility] 250 DO Work Phone: Start: 09-21-2022 [facility] Start: 09-17-2022 Hospital admission [facility] Start: 09-17-2022 Referral to side door man [facility] Start: 09-17-2022 Bacteria identified in Urine by Culture [facility] Start: 09-06-2022 [facility] Start: 09-05-2022 Blood chemistry [facility] Start: 09-05-2022 [facility] Start: 09-04-2022 Administration of prophylactic treatment [facility] Start: 09-04-2022 Blood chemistry [facility] Start: 09-04-2022 [facility] Start: 09-03-2022 Blood chemistry [facility] Start: 09-03-2022 [facility] Start: 09-02-2022 Blood chemistry [facility] Start: 09-02-2022 Brain natriuretic peptide measurement [facility] Start: 09-02-2022 Magnesium measurement [facility] Start: 09-02-2022 [facility] Start: 01-13-2023 Referral to side door man [facility] Start: 09-01-2022 Hospital admission [facility] Start: 09-01-2022 [facility] Start: 09-01-2022 Bacteria identified in Urine by Culture Urine Culture [facility] Start: 07-12-2022 FUV, Provider: Debbie Mac, Status: Pen, Time: 2:40 PM FUV, Provider: Debbie Mac, Status: Pen, Time: 2:40 PM -[facility] 250 DO Work Phone: Start: 03-09-2022 [facility] Work Phone: Start: 02-22-2022 FUV, Provider: Debbie Mac, Status: Pen, Time: 2:50 PM FUV, Provider: Debbie Mac, Status: Pen, Time: 2:50 PM [facility] 250 DO Work Phone: Start: 01-08-2022 COVID-19 Vaccine (3 - Pfizer series) COVID-19 Vaccine (3 - Pfizer series) [facility] Start: 01-03-2022 [facility] Work Phone: Start: 10-19-2021 FUV, Provider: Debbie Mac, Status: Pen, Time: 3:30 PM FUV, Provider: Debbie Mac, Status: Pen, Time: 3:30 PM -[facility] 250 DO Work Phone: Start: 09-12-2021 FUV, Provider: Debbie Mac, Status: Pen, Time: 2:50 PM [facility]UV, Provider: Debbie Mac, Status: Pen, Time: 2:50 PM [facility] 250 DO Work Phone: Start: 07-26-2021 FUV, Provider: Debbie Mac, Status: Pen, Time: 2:00 PM -[facility] 250 DO Work Phone: Start: 06-23-2021 [facility], Provider: Debbie Mac, Status: Pen, Time: 10:00 AM [facility], Provider: Debbie Mac, Status: Pen, Time: 10:00 AM [facility] [address] [place] Work Phone: Start: 11-08-2019 Pneumococcal Vaccine: 65+ Years (2 - PCV) Pneumococcal Vaccine: 65+ Years (2 - PCV) [facility] Start: 11-08-2019 Pneumococcal Vaccine: 65+ Years (2 of 2 - PCV) Pneumococcal Vaccine: 65+ Years (2 of 2 - PCV) [facility] Start: 2017 RSV High Risk: (Elderly (60+) or Population) (1 - 1-dose 75+ series) RSV High Risk: (Elderly (60+) or Population) (1 - 1-dose 75+ series) [facility] Start: 2017 RSV Vaccine (75+ years) RSV Vaccine (75+ years) [facility] Start: 2017 RSV vaccine (adult) (1 - 1-dose 75+ series) RSV vaccine (adult) (1 - 1-dose 75+ series) [facility] Start: 10-31-2012 Zoster Vaccines (2 of 3) Zoster Vaccines (2 of 3) [facility] Start: 2007 Pneumococcal vaccination Pneumococcal Vaccine(s) (65+ yrs) (1 of 1 - PCV) [facility] Start: 2007 Screening for osteoporosis [facility] Start: 2002 Hepatitis B (HBV) Vaccine (optional start 60+ years) Hepatitis B (HBV) Vaccine (optional start 60+ years) [facility] Start: 2002 Hepatitis B Vaccines (1 of 3 - Risk 3-dose series) Hepatitis B Vaccines (1 of 3 - Risk 3-dose series) [facility] Start: 2002 RSV patients and/or patients aged 60+ years (1 - 1-dose 60+ series) RSV patients and/or patients aged 60+ years (1 - 1-dose 60+ series) [facility] Start: 1992 Pneumococcal vaccination Pneumococcal Vaccine(s) (50+ yrs) (1 of 1 - PCV) [facility] Start: 1992 Shingles (RZV) Vaccine (1 of 2) Shingles (RZV) Vaccine (1 of 2) [facility] Start: 1961 Hepatitis A (HAV) Vaccine (optional start 19+ years) Hepatitis A (HAV) Vaccine (optional start 19+ years) [facility] Start: 1961 Hepatitis A Vaccines (1 of 2 - Risk 2-dose series) Hepatitis A Vaccines (1 of 2 - Risk 2-dose series) [facility] Start: 1961 Urine screening for protein CKD: Urine Protein Screening [facility] Start: 1960 Diabetes mellitus screening Diabetes Screening [facility] Start: 1942 Creatinine measurement Creatinine Level [facility] Start: 1942 Lipid panel Lipid Panel [facility] Start: 1942 Medicare Annual Wellness Visit Medicare Annual Wellness Visit (AWV) [facility] Start: 1942 Potassium measurement Potassium Level [facility] Start: 1942 Screening for osteoporosis Bone Density Scan [facility] Start: 1940 Thyroid stimulating hormone measurement TSH Level [facility] ABLATION A-FIB ABLATION A-FIB P ersistent atrial fibrillation (Multi) [facility] Work Phone: Albumin/Globulin ratio [facility] Anion gap measurement [facility] Basophils [#/volume] in Blood by Automated count [facility] Basophils/100 leukoc ytes in Blood by Automated count [facility] End: 12-04-2024 Cardiac Device Check - Remote Cardiac Device Check - R emote Implantable Cardiac Device Routine Pacemaker 52 Occurrences starting 06/05/2024 until 12/04/2024 [facility] Work Phone: Comment on above: 52 Occurrences starting 06/05/2024 until 12/04/2024 End: 09-08-2024 Cardiac Device Check - Remote [facility] Work Phone: Comment on above: Once for 1 Occurrences starting 09/08/19 until 09/08/2024 End: 04-25-2025 Cardiac Device Check - Remote Cardiac Device Check - R emote Implantable Cardiac Device Routine Pacemaker 52 Occurrences starting 10/23/2024 until 04/25/2025 [facility] Work Phone: Comment on above: 52 Occurrences starting 10/23/2024 until 04/25/2025 Cardiac Device Check - Remote Ca rdiac Device Check - Remote Implantable Cardiac Device Routine Pacemaker Sick sinus syndrome (Multi) 05/19/2025 10:43 AM EDT [facility] Work Phone: Comprehensive metabo lic 2000 panel - Serum or Plasma [facility] End: 05-01-2025 Creatinine [Mass/volume] in Serum or Plasma [facility] Work Phone: Comment on above: Once (Lab) for 1 Occurrences starting until 05/01/2025 CT Abdomen and Pelvi s W contrast IV [facility] CT Abdomen and Pelvi s W contrast IV [facility] ECG 12 Lead ECG 12 Lead ECG Routine Persistent atrial fibrillation (Multi) 02/23/2025 3:00 PM EDT [facility] Work Phone: ECG 12 Lead ECG 12 Lead ECG Routine 05/28/2025 7:56 AM EDT [facility] Work Phone: End: 03-02-2025 Electrophysiology study Electrophysiology procedure Electrophysiology Routine Persistent atrial fibrillation (Multi) Once for 1 Occurrences starting 03/02/2025 until 03/02/2025 [facility] Work Phone: Comment on above: Once for 1 Occurrences starting 03/02/20 until 03/02/2025 Eosinophils/100 leuk ocytes in Blood by Automated count [facility] Ephys eval w/ablatio n ventricular tachycardia ABLATION A-FIB PAROXYSMAL Persistent atrial fibrillation (Multi) [employer] [facility] Erythrocyte distribu tion width [Ratio] by Automated count [facility] Erythrocytes [#/volu me] in Blood [facility] Esophageal motility study w/interp&rpt ESOPHAGUS MOTILITY (MANOMETRY) STUDIES Procedures Routine Esophageal dysphagia 05/29/2024 3:48 PM EDT [facility] [employer] [facility] Work Phone: Esophagogastroduoden oscopy transoral diagnostic ESOPHAGOGASTRODUODENOSCOPY Esophageal dysphagia [facility] Esophgl balo distens ion dx std w/provocation ESOPHAGOGASTRODUODENOSCOPY WITH ENDOFLIP Esophageal dysphagia [employer] Globulin [Mass/volum e] in Serum [facility] Hematocrit [Volume F raction] of Blood [facility] Hemoglobin [Mass/vol ume] in Blood [facility] Hepatitis A virus an tibody, IgM type [facility] Work Phone: Hepatitis B core ant ibody measurement, IgM type [facility] Work Phone: Hepatitis B virus vieira rface Ag [Presence] in Serum or Plasma by Immunoassay [facility] Work Phone: Hepatitis C virus Ab Signal/Cutoff in Serum or Plasma by Immunoassay [facility] Work Phone: Hepatitis C virus RN A [log units/volume] (viral load) in Serum or Plasma by GUILLERMO with probe detection [facility] Work Phone: Hepatitis C virus RN A [Units/volume] (viral load) in Serum or Plasma by GUILLERMO with probe detection [facility] Work Phone: Homogenous nuclear A b pattern [Titer] in Serum [facility] Work Phone: Leukocytes [#/volume ] corrected for nucleated erythrocytes in Blood by Automated coun [facility] Leukocytes [#/volume ] in Blood [facility] Lymphocytes [#/volum e] in Blood by Automated count [facility] Lymphocytes/100 leuk ocytes in Blood by Automated count [facility] MCH [Entitic mass] b y Automated count [facility] MCHC [Mass/volume] b y Automated count [facility] MCV [Entitic volume] by Automated count [facility] Monocytes [#/volume] in Blood by Automated count [facility] Monocytes/100 leukoc ytes in Blood by Automated count [facility] Neutrophils [#/volum e] in Blood by Automated count [facility] Neutrophils/100 leuk ocytes in Blood by Automated count [facility] Nuclear Ab [Titer] in Serum [facility] Work Phone: Nucleated erythrocyt es [Presence] in Blood by Automated count [facility] Patient Education [facility] Work Phone: Patient referral [facility] Work Phone: Platelet mean volume [Entitic volume] in Blood by Automated count [facility] Platelets [#/volume] in Blood [facility] End: 05-28-2025 Prepare Platelets: 1 Units Prepare Platelets: 1 Units Blood Bank Routine Once for 1 Occurrences starting 05/28/2025 until 05/28/2025 [facility] Work Phone: Comment on above: Once for 1 Occurrences starting 05/28/20 until 05/28/2025 End: 05-28-2025 Prepare RBC: 2 Units Prepare RBC: 2 Units Blood Bank Routine Once for 1 Occurrences starting 05/28/2025 until 05/28/2025 [facility] Area Work Phone: Comment on above: Once for 1 Occurrences starting 05/28/20 until 05/28/2025 End: 08-21-2023 US Heart Transthoracic [facility] Area Work Phone: Comment on above: Once for 1 Occurrences starting 08/21/19 until 08/21/2023 [facility] Immunizations Immunization Date Immunization Notes Care Provider Rola priest 05-03-2025 Pneumococcal conjuga te vaccine, 20-valent (PREVNAR 20) Debbie Mac MD Work Phone: [facility] Work Phone: 06-29-2023 influenza, high dose seasonal, preservative-free Jazmin العلي Other [employer] Other 06-29-2023 influenza virus vaccine, unspecified formulation DO Jazmin العلي Work Phone: [facility] 05-26-2022 Fluad Quadrivalent 0 .5 ML Intramuscular Prefilled Syringe Jazmin العلي Work Phone: [facility] [employer] 250 DO Work Phone: 05-26-2022 influenza virus vaccine, split virus (incl. purified surface antigen) Jazmin العلي Other [facility] [place] Other 05-26-2022 influenza virus vaccine, unspecified formulation Debbie Mac MD Work Phone: [facility] 11-13-2021 Comirnaty 30 MCG/0.3 ML Intramuscular Suspension Jazmin العلي Work Phone: [facility] 250 DO Work Phone: 11-13-2021 COVID-19 mRNA, Comirnaty (Pfizer) DO Jazmin العلي Work Phone: [facility] 07-11-2021 tetanus toxoid, redu maranda diphtheria toxoid, and acellular pertussis vaccine, adsorbed Jazmin العلي Work Phone: [facility] 06-14-2021 influenza virus vaccine, split virus (incl. purified surface antigen) Jazmin العلي Other [facility] Other 06-14-2021 influenza virus vaccine, unspecified formulation DO Jazmin العلي Work Phone: [facility] 10-07-2020 Pfizer-BioNTech COVID-19 Vacc 30 MCG/0.3ML Intramuscular Suspension Jazmin العلي Work Phone: [facility] Comment on above: Series: 09-17-2020 COVID-19 Vaccine Moderna - Documentation Purposes Only Jazmin العلي Other [facility] 09-17-2020 Pfizer-BioNTech COVID-19 Vacc 30 MCG/0.3ML Intramuscular Suspension Jazmin العلي Work Phone: [facility] Comment on above: Series: 05-20-2020 influenza, seasonal, injectable Jazmin العلي Work Phone: [facility] 250 DO Work Phone: Comment on above: Series: 05-05-2020 Flu Vaccine - Adult DO George العلي Work Phone: [facility] 05-05-2020 influenza virus vaccine, split virus (incl. purified surface antigen) Jazmin العلي Other [facility] Other 05-05-2020 influenza virus vaccine, unspecified formulation DO Jazmin العلي Work Phone: [facility] 05-05-2020 influenza, seasonal, injectable Jazmin العلي Work Phone: [facility] 05-20-2019 influenza, high dose seasonal, preservative-free Jazmin العلي Work Phone: [facility] [place] [address] [place] Work Phone: 11-07-2018 pneumococcal polysaccharide vaccine, 23 valent Jazmin العلي Work Phone: [place] [address] DO Work Phone: 06-12-2018 influenza virus vaccine, split virus (incl. purified surface antigen) Jazmin العلي Other [facility] Other 06-12-2018 influenza virus vaccine, unspecified formulation DO Jazmin العلي Work Phone: [facility] 06-12-2018 Seasonal trivalent influenza vaccine, adjuvanted, preservative free Jazmin العلي Work Phone: [place] [address] DO Work Phone: 05-20-2018 influenza, injectabl e, quadrivalent, preservative free Jazmin العلي Work Phone: [facility] [place] DO Work Phone: 06-21-2017 diphtheria, tetanus toxoids and acellular pertussis vaccine, unspecified formulation Jazmin العلي Other [facility] 07-06-2016 pneumococcal conjuga te vaccine, 13 valent Jazmin العلي Other [facility] 07-06-2016 pneumococcal Conjuga te, unspecified formulation; Translations: [Need for prophylactic vaccination against Streptococcus pneumoniae (pneumococcus)] Jazmin العلي Other [facility] Other 03-20-2015 pneumococcal polysaccharide vaccine, 23 valent Jazmin العلي Work Phone: [facility] [place] DO Work Phone: Comment on above: Series: 03-20-2014 influenza virus vaccine, unspecified formulation Jazmin العلي Work Phone: [facility] [place] DO Work Phone: 06-24-2013 tetanus and diphther ia toxoids, adsorbed, preservative free, for adult use (5 Lf of tetanus toxoid and 2 Lf of diphtheria toxoid) Jazmin العلي Other [facility] 09-05-2012 zoster vaccine, live Selamvelia saad Hahn Tyson Work Phone: [facility] [employer] DO Work Phone: 07-29-2008 pneumococcal polysaccharide vaccine, 23 valent Jazmin العلي Other [facility] Payers Date Payer Category Payer Medicare [id number] 2024 Self-pay [id number] 2022 Medicare [id number] 2022 Medicare (Managed Care) 1.2. [id number] 2022 Unknown 2020 Medicare [id number] Unknown [id number] 1959 Private Health Insurance [id number] 1942 Unknown [id number] 2.16.8 40.1.880414.3.579.2.647 1942 Unknown [id number] 2.16. 840.1.352534.3.579.2.356 1942 Unknown [id number] 2.16.84 0.1.759289.3.579.2.593 1942 Unknown [id number] 2.16.84 0.1.863934.3.579.2.593 1942 Unknown [id number] 2.16.84 0.1.969532.3.579.2.593 1942 Unknown [id number] 2.16.84 0.1.770346.3.579.2.593 1942 Unknown [id number] 2.16.84 0.1.277372.3.579.2.593 1942 Unknown [id number] 2.16.84 0.1.463167.3.579.2.593 1942 Unknown [id number] 2.16.84 0.1.122843.3.579.2.593 1942 Unknown [id number] 2.16.8 40.1.788923.3.579.2.1245 1942 Unknown [id number] 2.16. 840.1.155720.3.579.2.196 1942 Unknown [id number] 2.16. 840.1.955660.3.579.2.196 1942 Unknown [id number] 2.16. 840.1.355935.3.579.2.196 1942 Unknown [id number] 2.16. 840.1.497899.3.579.2.196 1942 Unknown [id number] 2.16. 840.1.030635.3.579.2.196 1942 Unknown [id number] 2.16. 840.1.277194.3.579.2.196 1942 Unknown [id number] 2.16. 840.1.724753.3.579.2.732 1942 Unknown [id number] 2.16. 840.1.010722.3.579.2.732 1942 Unknown [id number] 2.16. 840.1.554503.3.579.2.732 1942 Unknown [id number] 2.16. 840.1.708315.3.579.2.732 1942 Unknown [id number] 2.16. 840.1.785213.3.579.2.732 1942 Unknown [id number] 2.16. 840.1.663158.3.579.2.732 1942 Unknown [id number] 2.16. 840.1.895151.3.579.2.732 1942 Unknown [id number] 2.16. 840.1.447883.3.579.2.732 1942 Unknown [id number] 2.16. 840.1.817524.3.579.2.732 1942 Unknown [id number] 2.16. 840.1.144733.3.579.2.732 1942 Unknown [id number] 2.16.8 40.1.811623.3.579.2.1259 1942 Unknown [id number] 2.16.8 40.1.999754.3.579.2.1259 1942 Unknown [id number] 2.16.8 40.1.706561.3.579.2.1259 1942 Unknown [id number] 2.16.8 40.1.065736.3.579.2.1246 1942 Unknown [id number] 2.16.8 40.1.836519.3.579.2.6 1942 Unknown [id number] 2.16.8 40.1.804174.3.579.2.1246 1942 Unknown [id number] 2.16.8 40.1.970777.3.579.2.1245 1942 Unknown [id number] 2.16.8 40.1.144414.3.579.2.6 1942 Unknown [id number] 2.16.8 40.1.292999.3.579.2.1245 1942 Unknown [id number] 2.16.8 40.1.905191.3.579.2.1245 1942 Unknown [id number] 2.16.8 40.1.130139.3.579.2.1245 1942 Unknown [id number] 2.16. 840.1.462410.3.579.2.1243 1942 Unknown [id number] 2.16. 840.1.926448.3.579.2.1243 1942 Unknown [id number] 2.16. 840.1.327384.3.579.2.1243 1942 Unknown [id number] 2.16. 840.1.279349.3.579.2.1243 1942 Unknown [id number] 2.16. 840.1.565197.3.579.2.1243 1942 Unknown [id number] 2.16. 840.1.802217.3.579.2.1243 1942 Unknown [id number] 2.16. 840.1.528256.3.579.2.1244 Medicare [id number] Private Health Insurance [id number] Unknown [id number] 2.16.8 40.1.960959.3.579.2.531 Unknown [id number] 2.16.8 40.1.641545.3.579.2.531 Unknown [id number] 2.16.8 40.1.830476.3.579.2.531 Unknown [id number] 2.16.8 40.1.914584.3.579.2.531 Unknown [id number] 2.16.8 40.1.985802.3.579.2.531 Unknown [id number] 2.16.8 40.1.658807.3.579.2.531 Unknown [id number] 2.16.8 40.1.577087.3.579.2.531 Social History Date Type Detail Facility Start: 05-31-2023 End: 03-21-2024 No alcohol use No alcohol use [facility] 250 DO Work Phone: Start: 08-22-2021 End: 05-31-2023 Tobacco smoking status NHIS Never smoked tobacco (finding) [facility] Start: 1940 Sex Assigned At Female [facility] Start: 05-31-2023 End: 03-21-2024 Sex Assigned At [facility] [employer] Other Start: 05-31-2023 End: 01-15-2024 Tobacco use and exposure Smokeless tobacco non-user [facility] Work Phone: Start: 05-31-2023 End: 05-28-2025 Alcohol intake Lifetime non-drinker (finding) [facility] Work Phone: Start: 1940 Sex Assigned At Not on file [facility] Work Phone: Start: 05-21-2023 End: 10-23-2024 Exposure to SARS-CoV-2 (event) Not sure [facility] Tobacco smoking stat [facility] Tobacco smoking consumption unknown [facility] How often to you hav e a drink containing alcohol? Never [facility] Start: 07-15-2022 How many standard drinks containing alcohol do you have on a typical day? Patient does not drink [facility] Work Phone: In the past 12 month s, was there a time when you were not able to pay the mortgage or rent on time? No [facility] Work Phone: Start: 04-23-2024 End: 01-23-2025 Sex Female (finding) [facility] Work Phone: Start: 02-21-2023 Alcohol Comment caffeine: none [facility] Medical Equipment Procedure Code Equipment Code Equipment Origin al Text Equipment Identifier Dates Insertion, pacemaker Endocardial pacing lead [id number] FDA Start: 06-29-2021 Insertion, pacemaker Endocardial pacing lead [id number] FDA Start: 06-29-2021 Insertion, pacemaker Dual-chambe r implantable pacemaker, rate-responsive [id number] FDA Start: 06-29-2021 Cystoscopy, with ureteral calculus manipulation and stent placement Polymeric ureteral stent [id number] FDA Start: 07-01-2021 Goals Date Patient Goal Desired Activity /State Personal health goal Functional Status Date Assessment Result Facility 05-28-[address] [facility] Work Phone: 05-28-2025 Ashley - suicide severity rating scale screener - recent [C-SSRS] [facility] Work Phone: 05-26-2025 Functional status 100/62 [facility] Work Phone: 05-26-2025 Vital signs 97 05/26/2025 2: 57 PM Anju Ludwig LPN [facility] Work Phone: 05-26-[address] [facility] Work Phone: 04-28-[address] [facility] 04-28-2025 Functional status [facility] 01-23-2025 Functional status Patient at Baseline [facility] Work Phone: 07-24-2024 Functional status Patient at Baseline [facility] Work Phone: 07-03-2024 Functional status Patient at Baseline [facility] Work Phone: 06-30-2024 Functional status Disability Sta tus Patient at Baseline [facility] Work Phone: 03-27-2024 Are you deaf, or do you have serious difficulty hearing No 03/27/2024 1:02 PM Vera Figueroa, RN No [facility] 03-27-2024 Are you blind, or do you have serious difficulty seeing, even when wearing glasses No 03/27/2024 1:02 PM Vera Figueroa, RN No [facility] Work Phone: 03-27-2024 Do you have serious difficulty walking or climbing stairs No 03/27/2024 1:02 PM Vera Figueroa, RN No [facility] Work Phone: 03-27-2024 Do you have difficul ty dressing or bathing No 03/27/2024 1:02 PM Vera Figueroa, RN No [facility] Work Phone: 03-27-2024 Because of a physica l, mental, or emotional condition, do you have difficulty doing errands alone such as visiting a physician's office or shopping No 03/27/2024 1:02 PM Vera Figueroa, RN No [facility] Work Phone: 01-20-2024 Functional status Patient at Baseline [facility] Work Phone: 09-21-2022 Functional status Patient at Baseline [facility] Work Phone: 09-06-2022 Functional status Patient at Baseline [facility] Work Phone: 09-02-2022 Functional status Bathing Patien t at Baseline [facility] Work Phone: Mental Status Date Assessment Result Facility 05-28-2025 Cognitive function finding Negative 05/28/2025 8:05 AM Kati Houser, ROSA [facility] Work Phone: 01-23-2025 Cognitive function Cognitive Sta tus Patient at Baseline [facility] Work Phone: 07-24-2024 Cognitive function Cognitive Sta tus Patient at Baseline [facility] Work Phone: 07-03-2024 Cognitive function Cognitive Sta tus Patient at Baseline [facility] Work Phone: 03-27-2024 Because of a physica l, mental, or emotional condition, do you have serious difficulty concentrating, remembering, or making decisions No 03/27/2024 1:02 PM Vera Figueroa, ROSA [facility] Work Phone: 01-20-2024 Cognitive function Cognitive Sta tus Patient at Baseline [facility] Work Phone: 09-21-2022 Cognitive function Cognitive Sta tus Patient at Baseline [facility] Work Phone: 09-06-2022 Cognitive function Cognitive Sta tus Patient at Baseline [facility] Work Phone: Clinical Notes 06-21-2021 to 05-28-2025 Pre-Sedation Documentation - Maxwell Medrano MD - 05/28/2025 8:46 AM Umesh Medrano MD - 05/28/2025 8:46 AM Umesh Medrano MD - 05/28/2025 8:46 AM EDTPatient InstructionsAttachments Note Date & Type Note Facility 05-28-2025 Nurse procedure note Sedation Plan ASA 3 Mallampati class: II. Risks, benefits, and alternatives discussed with patient. [facility] Work Phone: 05-28-2025 Attending History and physical note H&P reviewed. The patient was examined and there are no changes to the H&P. Source Note - Debbie Mac MD - 05/26/2025 2:40 PM EDT Chief Complaint Patient presents with Follow-up 9 month Diastolic heart failure (Multi) Subjective Austin Golden is a 84 y.o. female HPI Patient here for follow-up and management for persistent atrial fibrillation/flutter with picture of tachybradycardia syndrome, coronary artery disease affecting small diagonal branch, hypertension and hyperlipidemia. Since last time I saw her she continues to describe shortness of breath. She denies lightheadedness, dizziness or syncope. She is on the book to proceed with ablation. EKG today seem to suggest atrial flutter. The patient continues to struggle with her GI issues and esophageal dysmotility. Apparently was not felt to be a good candidate for any surgical intervention. She had recent fall which appears mechanical resulted in the right periorbital hematoma Assessment 1. Persistent atrial flutter/fibrillation with clinical picture of tachybradycardia syndrome. She is status post permanent pacemaker implantation rremain in sinus rhythm. Amiodarone was discontinued few years back because of concern about pulmonary side effects. This was resumed by Dr. Medrano recently. Tikosyn was ineffective of lower dose and resulted in prolonged QTc. She was partially controlled with sotalol. She is on the books for ablation by Dr. Medrano in a few days. In the interim she was placed on amiodarone. She is aware of side effect and the need for amiodarone surveillance testing which will be arranged 2. Long-term anticoagulation with Xarelto 3. History of nephrolithiasis 4. Hypertension controlled 5. Hyperlipidemia 6. BMI 28 7. Single-vessel coronary artery disease affecting small diagonal branch based on recent heart cath he had 2 heart cath both indicated medical therapy 8. Had complaint of recurrent nausea and vomiting she was diagnosed with esophageal stricture she reported improvement 9. Status post cholecystectomy 10. Chronic complaint of shortness of breath seem to coincide with atrial fibrillation flutter 11. Recent fall with Ernie orbital hematoma Plan 1. I advised the patient to continue present medical regimen. And to proceed with ablation as scheduled in the next 2 weeks 2. Risk, benefit and alternative anticoagulation and amiodarone reviewed patient understood and agreed. Will arrange for a pulmonary function test 3. Follow-up in 6-month 5. I reviewed her recent hospitalization/cardiac catheterization with her Review of Systems Cardiovascular: Positive for dyspnea on exertion. All other systems reviewed and are negative. Vitals: 05/26/25 1457 BP: 100/62 BP Location: Right arm Patient Position: Sitting Pulse: 97 Weight: 63 kg (139 lb) Height: 1.499 m (4' 11 ) EKG done in office today Objective Physical [...] no known allergies. Current Medications Current Outpatient Medications Medication Instructions acetaminophen (TYLENOL) 325 mg amiodarone (PACERONE) 200 mg, oral, Daily aspirin 81 mg, Daily atorvastatin (Lipitor) 40 mg tablet 1 tablet, Daily calcium carbonate/vitamin D3 (CALCIUM 600 + D,3, ORAL) 600 mg cholecalciferol (VITAMIN D-3) 2,000 Units, Daily dilTIAZem CD (CARDIZEM CD) 180 mg, oral, Daily DULoxetine (CYMBALTA) 30 mg, Daily furosemide (LASIX) 40 mg, Daily metoprolol succinate XL (TOPROL-XL) 50 mg, Daily multivitamin (Daily Multi-Vitamin) tablet 1 tablet, Daily potassium chloride CR 10 mEq ER tablet 10 mEq, Daily rivaroxaban (XARELTO) 20 mg, Daily with evening meal rOPINIRole (REQUIP) 1 mg, Nightly Assessment/Plan 1. Persistent atrial fibrillation (Multi) ECG 12 Lead Aspartate Aminotransferase Thyroid Stimulating Hormone Complete Pulmonary Function Test (Spirometry/DLCO/Lung Volumes) Aspartate Aminotransferase Thyroid Stimulating Hormone 2. Single vessel coronary artery disease Follow Up In Cardiology Follow Up In Cardiology Aspartate Aminotransferase Thyroid Stimulating Hormone Aspartate Aminotransferase Thyroid Stimulating Hormone 3. High risk medication use Aspartate Aminotransferase Thyroid Stimulating Hormone Complete Pulmonary Function Test (Spirometry/DLCO/Lung Volumes) Aspartate Aminotransferase Thyroid Stimulating Hormone 4. Sinus bradycardia 5. 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 (Multi) 6. Pacemaker 7. Mixed hyperlipidemia 8. Essential hypertension, benign 9. Chronic diastolic heart failure (Multi) 10. Atrial flutter, unspecified type (Multi) ECG 12 Lead Complete Pulmonary Function Test (Spirometry/DLCO/Lung Volumes) 11. Anticoagulated 12. BMI 28.0-28.9,adult 13. Shortness of breath 14. Never smoked any substance Scribe Attestation By signing my name below, IMaggy LPN, Scribe attest that this documentation has been prepared under the direction and in the presence of Debbie Mac MD. Provider Attestation - Scribe documentation All medical record entries made by the Scribe were at my direction and personally dictated by me. I have reviewed the chart and agree that the record accurately reflects my personal performance of the history, physical exam, discussion and plan. [facility] Work Phone: 05-28-2025 History and physical note H&P reviewed. The patient was examined and there are no changes to the H&P. Source Note - Debbie Mac MD - 05/26/2025 2:40 PM EDT Chief Complaint Patient presents with Follow-up 9 month Diastolic heart failure (Multi) Subjective Austin Golden is a 84 y.o. female HPI Patient here for follow-up and management for persistent atrial fibrillation/flutter with picture of tachybradycardia syndrome, coronary artery disease affecting small diagonal branch, hypertension and hyperlipidemia. Since last time I saw her she continues to describe shortness of breath. She denies lightheadedness, dizziness or syncope. She is on the book to proceed with ablation. EKG today seem to suggest atrial flutter. The patient continues to struggle with her GI issues and esophageal dysmotility. Apparently was not felt to be a good candidate for any surgical intervention. She had recent fall which appears mechanical resulted in the right periorbital hematoma Assessment 1. Persistent atrial flutter/fibrillation with clinical picture of tachybradycardia syndrome. She is status post permanent pacemaker implantation rremain in sinus rhythm. Amiodarone was discontinued few years back because of concern about pulmonary side effects. This was resumed by Dr. Medrano recently. Tikosyn was ineffective of lower dose and resulted in prolonged QTc. She was partially controlled with sotalol. She is on the books for ablation by Dr. Medrano in a few days. In the interim she was placed on amiodarone. She is aware of side effect and the need for amiodarone surveillance testing which will be arranged 2. Long-term anticoagulation with Xarelto 3. History of nephrolithiasis 4. Hypertension controlled 5. Hyperlipidemia 6. BMI 28 7. Single-vessel coronary artery disease affecting small diagonal branch based on recent heart cath he had 2 heart cath both indicated medical therapy 8. Had complaint of recurrent nausea and vomiting she was diagnosed with esophageal stricture she reported improvement 9. Status post cholecystectomy 10. Chronic complaint of shortness of breath seem to coincide with atrial fibrillation flutter 11. Recent fall with Ernie orbital hematoma Plan 1. I advised the patient to continue present medical regimen. And to proceed with ablation as scheduled in the next 2 weeks 2. Risk, benefit and alternative anticoagulation and amiodarone reviewed patient understood and agreed. Will arrange for a pulmonary function test 3. Follow-up in 6-month 5. I reviewed her recent hospitalization/cardiac catheterization with her Review of Systems Cardiovascular: Positive for dyspnea on exertion. All other systems reviewed and are negative. Vitals: 05/26/25 1457 BP: 100/62 BP Location: Right arm Patient Position: Sitting Pulse: 97 Weight: 63 kg (139 lb) Height: 1.499 m (4' 11 ) EKG done in office today Objective Physical [...] no known allergies. Current Medications Current Outpatient Medications Medication Instructions acetaminophen (TYLENOL) 325 mg amiodarone (PACERONE) 200 mg, oral, Daily aspirin 81 mg, Daily atorvastatin (Lipitor) 40 mg tablet 1 tablet, Daily calcium carbonate/vitamin D3 (CALCIUM 600 + D,3, ORAL) 600 mg cholecalciferol (VITAMIN D-3) 2,000 Units, Daily dilTIAZem CD (CARDIZEM CD) 180 mg, oral, Daily DULoxetine (CYMBALTA) 30 mg, Daily furosemide (LASIX) 40 mg, Daily metoprolol succinate XL (TOPROL-XL) 50 mg, Daily multivitamin (Daily Multi-Vitamin) tablet 1 tablet, Daily potassium chloride CR 10 mEq ER tablet 10 mEq, Daily rivaroxaban (XARELTO) 20 mg, Daily with evening meal rOPINIRole (REQUIP) 1 mg, Nightly Assessment/Plan 1. Persistent atrial fibrillation (Multi) ECG 12 Lead Aspartate Aminotransferase Thyroid Stimulating Hormone Complete Pulmonary Function Test (Spirometry/DLCO/Lung Volumes) Aspartate Aminotransferase Thyroid Stimulating Hormone 2. Single vessel coronary artery disease Follow Up In Cardiology Follow Up In Cardiology Aspartate Aminotransferase Thyroid Stimulating Hormone Aspartate Aminotransferase Thyroid Stimulating Hormone 3. High risk medication use Aspartate Aminotransferase Thyroid Stimulating Hormone Complete Pulmonary Function Test (Spirometry/DLCO/Lung Volumes) Aspartate Aminotransferase Thyroid Stimulating Hormone 4. Sinus bradycardia 5. 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 (Multi) 6. Pacemaker 7. Mixed hyperlipidemia 8. Essential hypertension, benign 9. Chronic diastolic heart failure (Multi) 10. Atrial flutter, unspecified type (Multi) ECG 12 Lead Complete Pulmonary Function Test (Spirometry/DLCO/Lung Volumes) 11. Anticoagulated 12. BMI 28.0-28.9,adult 13. Shortness of breath 14. Never smoked any substance Scribe Attestation By signing my name below, Maggy Brown LPN, Scribe attest that this documentation has been prepared under the direction and in the presence of Debbie Mac MD. Provider Attestation - Scribe documentation All medical record entries made by the Scribe were at my direction and personally dictated by me. I have reviewed the chart and agree that the record accurately reflects my personal performance of the history, physical exam, discussion and plan. documented in this encounter [facility] Work Phone: 05-28-2025 Miscellaneous Notes Sedation Plan ASA 3 Mallampati class: II. Risks, benefits, and alternatives discussed with patient. documented in this encounter [facility] Work Phone: 05-26-2025 History of Presen t illness Narrative Chief Complaint Patient presents with Follow-up 9 month Diastolic heart failure (Multi) Subjective Austin Golden is a 84 y.o. female HPI Patient here for follow-up and management for persistent atrial fibrillation/flutter with picture of tachybradycardia syndrome, coronary artery disease affecting small diagonal branch, hypertension and hyperlipidemia. Since last time I saw her she continues to describe shortness of breath. She denies lightheadedness, dizziness or syncope. She is on the book to proceed with ablation. EKG today seem to suggest atrial flutter. The patient continues to struggle with her GI issues and esophageal dysmotility. Apparently was not felt to be a good candidate for any surgical intervention. She had recent fall which appears mechanical resulted in the right periorbital hematoma Assessment 1. Persistent atrial flutter/fibrillation with clinical picture of tachybradycardia syndrome. She is status post permanent pacemaker implantation rremain in sinus rhythm. Amiodarone was discontinued few years back because of concern about pulmonary side effects. This was resumed by Dr. Medrano recently. Tikosyn was ineffective of lower dose and resulted in prolonged QTc. She was partially controlled with sotalol. She is on the books for ablation by Dr. Medrano in a few days. In the interim she was placed on amiodarone. She is aware of side effect and the need for amiodarone surveillance testing which will be arranged 2. Long-term anticoagulation with Xarelto 3. History of nephrolithiasis 4. Hypertension controlled 5. Hyperlipidemia 6. BMI 28 7. Single-vessel coronary artery disease affecting small diagonal branch based on recent heart cath he had 2 heart cath both indicated medical therapy 8. Had complaint of recurrent nausea and vomiting she was diagnosed with esophageal stricture she reported improvement 9. Status post cholecystectomy 10. Chronic complaint of shortness of breath seem to coincide with atrial fibrillation flutter 11. Recent fall with Ernie orbital hematoma Plan 1. I advised the patient to continue present medical regimen. And to proceed with ablation as scheduled in the next 2 weeks 2. Risk, benefit and alternative anticoagulation and amiodarone reviewed patient understood and agreed. Will arrange for a pulmonary function test 3. Follow-up in 6-month 5. I reviewed her recent hospitalization/cardiac catheterization with her Review of Systems Cardiovascular: Positive for dyspnea on exertion. All other systems reviewed and are negative. Vitals: 05/26/25 1457 BP: 100/62 BP Location: Right arm Patient Position: Sitting Pulse: 97 Weight: 63 kg (139 lb) Height: 1.499 m (4' 11 ) EKG done in office today Objective Physical [...] no known allergies. Current Medications Current Outpatient Medications Medication Instructions acetaminophen (TYLENOL) 325 mg amiodarone (PACERONE) 200 mg, oral, Daily aspirin 81 mg, Daily atorvastatin (Lipitor) 40 mg tablet 1 tablet, Daily calcium carbonate/vitamin D3 (CALCIUM 600 + D,3, ORAL) 600 mg cholecalciferol (VITAMIN D-3) 2,000 Units, Daily dilTIAZem CD (CARDIZEM CD) 180 mg, oral, Daily DULoxetine (CYMBALTA) 30 mg, Daily furosemide (LASIX) 40 mg, Daily metoprolol succinate XL (TOPROL-XL) 50 mg, Daily multivitamin (Daily Multi-Vitamin) tablet 1 tablet, Daily potassium chloride CR 10 mEq ER tablet 10 mEq, Daily rivaroxaban (XARELTO) 20 mg, Daily with evening meal rOPINIRole (REQUIP) 1 mg, Nightly Assessment/Plan 1. Persistent atrial fibrillation (Multi) ECG 12 Lead Aspartate Aminotransferase Thyroid Stimulating Hormone Complete Pulmonary Function Test (Spirometry/DLCO/Lung Volumes) Aspartate Aminotransferase Thyroid Stimulating Hormone 2. Single vessel coronary artery disease Follow Up In Cardiology Follow Up In Cardiology Aspartate Aminotransferase Thyroid Stimulating Hormone Aspartate Aminotransferase Thyroid Stimulating Hormone 3. High risk medication use Aspartate Aminotransferase Thyroid Stimulating Hormone Complete Pulmonary Function Test (Spirometry/DLCO/Lung Volumes) Aspartate Aminotransferase Thyroid Stimulating Hormone 4. Sinus bradycardia 5. 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 (Multi) 6. Pacemaker 7. Mixed hyperlipidemia 8. Essential hypertension, benign 9. Chronic diastolic heart failure (Multi) 10. Atrial flutter, unspecified type (Multi) ECG 12 Lead Complete Pulmonary Function Test (Spirometry/DLCO/Lung Volumes) 11. Anticoagulated 12. BMI 28.0-28.9,adult 13. Shortness of breath 14. Never smoked any substance Scribe Attestation By signing my name below, Maggy Brown LPN, Scribe attest that this documentation has been prepared under the direction and in the presence of Debbie Mac MD. Provider Attestation - Scribe documentation All medical record entries made by the Scribe were at my direction and personally dictated by me. I have reviewed the chart and agree that the record accurately reflects my personal performance of the history, physical exam, discussion and plan. documented in this encounter [facility] Work Phone: 05-26-2025 Instructions Maggy Vee LPN - 05/26/2025 2:40 PM EDT Please bring all medicines, vitamins, and herbal supplements with you when you come to the office. Prescriptions will not be filled unless you are compliant with your follow up appointments or have a follow up appointment scheduled as per instruction of your physician. Refills should be requested at the time of your visit. BMI was above normal measurement. Current weight: 63 kg (139 lb) Weight change since last visit (-) denotes wt loss 9 lbs Weight loss needed to achieve BMI 25: 15.5 Lbs Weight loss needed to achieve BMI 30: -9.2 Lbs Provided instructions on dietary changes Amiodarone follow up per routine Pacemaker/Defibrillator follow up per routine The following attachments cannot be sent through Care Everywhere.Preventing Falls ED (Iranian)Heart-healthy diet (Iranian)documented in this encounter [facility] Work Phone: 05-18-2025 Evaluation note Diagnosis Onset Date Resolution Acute hypoxic respiratory failure acute May 18, 2025 11:58am Acute on chronic heart failure with preserved ejection fraction (HFpEF) acute Septem 2024 11:58am Chronic kidney disease acute Se ptember 2024 11:58am Mild episode of recurrent major depressive disorder acute Septem 2024 11:58am Primary hypertension acute Sept ember 2024 11:58am Paroxysmal atrial fibrillation resolved May 18, 2025 11:58am ASHD (arteriosclerotic heart disease) inactive May 18, 2025 11:58am Hypercholesterolemia inactive Apr 11:58am [facility] Work Phone: 1(230) 959-243109-18-2025 History of Present illness Narrative* Joseph Allred Mu, DPM - 05/07/2025 3:10 PM EDT Patient: Austin Golden : 1940 PCP: Jazmin العلي, DO SUBJECTIVE Patient has complaints of painful hammertoe type deformities has tried accommodative shoe gear withsome improvement still has pain particularly for the [...] by mouth in the morning and 1 capsule(300 mg) in the evening and 1 capsule [...] by mouth Daily, Disp: , Rfl: HYDROcodone-acetaminophen ([place]) 10-325 MG tablet, 1 tablet, Disp: , [...] Resource Strain: Low Risk (03/21/2024) Received from [facility] Overall Financial Resource Strain (CARDIA) Difficulty of Paying Living Expenses: Not hard at all Food Insecurity: Not on file Transportation Needs: No Transportation Needs (03/24/2024) Received from [facility] PRAPARE - Transportation Lack of Transportation (Medical): No Lack of Transportation (Non-Medical): No Physical Activity: Not on file Stress: Not on file Social Connections: Not on file Intimate Partner Violence: Unknown (02/14/2024) Received from [facility] Safety & Environment Fear of Current or Ex-Partner: Not on file Emotionally Abused: Not on file Physically Abused: Not on file Sexually Abused: Not on file Physically or Sexually Abused: Not on file Housing Stability: Low Risk (03/21/2024) Received from [facility] Housing Stability Vital Sign Unable to [...] today Joseph Sepulveda DPM documented in this encounterGolden Valley Memorial [id number] History of Present illness Narrative* Cristiana Chapa, COUNTER POCKET SEWER-CONTINUOUS STILL OPERATOR - 02/23/2025 3:00 PM EDT Chief Complaint: Chief Complaint Patient presents with Follow-up Pacemaker check follow up Austin Golden is a 84 y.o. female that presents to the office today for cardiac follow-up. She follows with her primary side door man Dr. Mac and Dr. Medrano. She was added to my schedule today asa follow-up with Dr. Medrano. She has a PMH of persistent atrial fibrillation, high risk medication amiodarone, long- term anticoagulation Xarelto, hypertension, hyperlipidemia, tachybradycardia syndrome, dual-chamber pacemaker, cardiomyopathy. At last office visit with Dr. Medrano 10/23/2024 PVI ablation was recommended, orders were placed. She decided not to proceed with the procedure at that time. Recently admitted to [facility] 01/23/2025 with atrial flutter both RVR at [...] proceeding with PVI ablation at [facility]. Will proceed with previously placed CT [...] or translation related to dictation, voice recognition softwarewas used to prepare this document. [1] Patient [...] Heart Cath; Surgeon: Sonu Mendez MD; Location: [facility] Cardiac Trailer Technician;Service: Cardiovascular; Laterality: Left; CT ANGIO NECK 07/28/2020 CT NECK ANGIO W AND WO IV CONTRAST CT HEAD ANGIO W AND WO IV CONTRAST 07/28/2020 CT HEAD ANGIO W AND WO IV CONTRAST OTHER SURGICAL HISTORY 06/03/2021 Hernia repair OTHER SURGICAL HISTORY 06/03/2021 Appendectomy OTHER SURGICAL HISTORY 06/03/2021 Foot surgery OTHER SURGICAL HISTORY 06/03/2021 Hysterectomy OTHER SURGICAL HISTORY 10/19/2021 Pacemaker insertion documented in this [facility] Work Phone: 1(116) 788-402006-26-2025 History of Present illness Narrative* Joseph Sepulveda DPM - 02/12/2025 10:30 AM EDT Patient: Austin Golden : 1940 PCP: [...] by mouth Daily, Disp: , Rfl: HYDROcodone-acetaminophen ([place]) 10-325 MG tablet, 1 tablet, Disp: , [...] Resource Strain: Low Risk (03/21/2024) Received from [facility] Overall Financial Resource Strain (CARDIA) Difficulty of Paying Living Expenses: Not hard at all Food Insecurity: Not on file Transportation Needs: No Transportation Needs (03/24/2024) Received from [facility] PRAPARE - Transportation Lack of Transportation (Medical): No Lack of Transportation (Non-Medical): No Physical Activity: Not on file Stress: Not on file Social Connections: Not on file Intimate Partner Violence: Unknown (02/14/2024) Received from [facility] Safety & Environment Fear of Current or Ex-Partner: Not on file Emotionally Abused: Not on file Physically Abused: Not on file Sexually Abused: Not on file Physically or Sexually Abused: Not on file Housing Stability: Low Risk (03/21/2024) Received from [facility] Housing Stability Vital Sign Unable to [...] gear Joseph Sepulveda DPM documented in this encounterGolden Valley Memorial [id number] Consult note Author Jimena Smith [facility] Note Date/Time January 23, 2025 11:20 am [facility] [address] [place] [address] Cardiology Consult Note Signed Patient: Austin Golden MR#: [id number] : 1940 Acct:[id number] Age/Sex: 84 / F Adm Date: 5 Loc: Room: [address] [place] [address] Type: ADM IN Attending Dr: Fahad Kim DO Copies to: DO Jimena Carias MD, [facility] Fahad Kim, DO~ Cardiology HPI History [...] comfortably. The patient was evaluated electrophysiology at [facility] Dr. Medrano and ablation was discussed. She is not scheduled. In the past she has failed dofetilide and sotalol. She is open for the idea of having ablation for atrial fibrillation. After detailed discussions about the subject patient is agreeableto be referred back to Dr. DS for the ablation in the near future. The patient will benefit from having more heart rate control, will add metoprolol succinate 50 mg daily to present dose diltiazem 180 mg daily, wean off Cardizem drip, continue amiodarone at 200 mg daily and continue Xarelto. I will increase the Lasix up to 40 mg daily. Her chest x- ray revealed bilateral small pleural effusions. Review of Systems Review of Systems Review of systems: Outside of what is covered in HPI above review of system was unremarkable, more specifically no febrile illnesses, no bleeding complications related to Xarelto and no constitutional symptoms. [facility] Medical History (Updated 01/23/25 @ 11:18 by [...] [facility] History of repair [...] Social History Comments: independent living at the [facility] Medications and Allergies Allergies No Known Allergies [...] Lymph # (Auto) 1.4 1.1 (1.00-4.8) x10E3/uL [place] # (Auto) 0.6 0.5 (0.0-0.8) x10E3/uL Eos [...] 10 MG/HR 10 mls/hr IV .Q10H KWAN Rx#:[id number] Oral 200 / 200 Other: # Voids [...] Code(s): I25.10 - Atherosclerotic heart disease of jena coronary artery without angina pectoris (3) Esophageal [...] will be referred back to electrophysiology at [facility] for ablation of atrial fibrillation, the patient is agreeable, arrangements will be made through our office Code(s): I48.19 - Other persistent atrial fibrillation Documented By: Jimena Smith MD, [facility] 5 1111 Signed By: <Electronically signed by MD CLAUDIA Smith> 01/23/[address] [place] [address] Work Phone: 1(773) 572-491506-06-2025 Consult [place] [id number] Cardiology Consult Note Signed Patient: Austin Golden MR#: [id number] : 1940 Acct:[id number] Age/Sex: 84 / F Adm Date: 5 Loc: Room: [address] [place] [address] Type: ADM IN Attending Dr: Fahad Kim DO Copies to: DO Jimena Carias MD, [facility] Fahad Kim, ~ Cardiology HPI History of [...] comfortably. The patient was evaluated electrophysiology at [facility] Dr. Medrano and ablation was discussed. She [...] related to Xarelto and no constitutional symptoms. [facility] Medical History (Updated 01/23/25 @ 11:18 by [...] request of Phys. EHR Cmte Family History (Reviewed 01/21/25 @ 13:38 by Sasha Rios [facility]) Father Heart & renal disease, hypertensive, with heart fail/chron kidney dis Depression Sister Heart disease Mother Brain tumor Father Mother Social History Smoking Status: Never smoker Substance Use Type: None Substance Abuse Comment: etoh occasional Social History Comments: independent living at the [facility] Medications and Allergies Allergies No Known Allergies [...] mg PO DAILY #30 caps 09/17/24 [Rx Knqsahmyh98/05/25] duloxetine 30 mg capsule,delayed release 30 mg [...] Lymph # (Auto) 1.4 1.1 (1.00-4.8) x10E3/uL [place] # (Auto) 0.6 0.5 (0.0-0.8) x10E3/uL Eos [...] 10 MG/HR 10 mls/hr IV .Q10H KWAN Rx#:[id number] Oral 200 / 200 Other: # Voids [...] Code(s): I25.10 - Atherosclerotic heart disease of jena coronary artery without angina pectoris (3) Esophageal [...] will be referred back to electrophysiology at [facility] for ablation of atrial fibrillation, the patient is agreeable, arrangements will be made through our office Code(s): I48.19 - Other persistent atrial fibrillation Documented By: Jimena Smith MD, FACC 5 1111 Signed By: 01/23/25 1120 [facility]06-06-2025 History and physical note Author Ángel Minaya [facility] Note Date/Time January 22, 2025 11:17 pm [facility] [address] [place] [address] Hospitalist H&P Signed Patient: Austin Golden MR#: [id number] : 1940 Acct:[id number] Age/Sex: 84 / F Adm Date: Loc: ER Room: Type: [facility] ER Attending Dr: Copies to: MD Jazmin Connor DO Thomas D Kramer Jr, MD~ HPI DATE OF EXAMINATION: 01/22/25 CHIEF COMPLAINT: Shortness of breath HISTORY OF PRESENT ILLNESS: This is a 84-year-old female with significant past medical history of atrial fibrillation, CKD, coronary artery disease, anxiety, GERD, pulmonary hypertension, STONEY, hyperlipidemia, depression, hypertension, presented to [facility] ED with chief complaints of worsening [...] negative unless noted below or in HPI [facility] Medical History (Updated 01/22/25 @ 23:17 by [...] of Phys. [facility] Problem List clean-up [...] request of Phys. EHR Cmte Family History (Reviewed 01/21/25 @ 13:38 by Sasha Rios [facility]) Father Heart & renal disease, hypertensive, with heart fail/chron kidney dis Depression Sister Heart disease Mother Brain tumor Father Mother Social History Smoking Status: Never smoker Substance Use Type: None Substance Abuse Comment: etoh occasional Social History Comments: independent living at the [facility] Medications and Allergies Allergies No Known Allergies [...] % (Auto) 17.7 % (.) 01/22/25 20:54 [place] % (Auto) 7.9 % (.) 01/22/25 20:54 Eos % (Auto) 2.5 % (.) 01/22/25 20:54 Baso % (Auto) 1.2 % (.) 01/22/25 20:54 Nucleat RBC Rel Count 0.2 /100 WBC (0-0.5) 01/22/25 20: Neut # (Auto) 5.5 x10E3/uL (1.8-7.7) 01/22/25 20:54 Lymph # (Auto) 1.4 x10E3/uL (1.00-4.8) 01/22/25 20:54 [place] # (Auto) 0.6 x10E3/uL (0.0-0.8) 01/22/25 20:54 [...] I High Sens 15 ng/L (0-15) 01/22/25 20: B-Natriuretic Peptide 192.0 pg/mL (5-100) H 01/22/25 [...] hypertension, STONEY, hyperlipidemia, depression, hypertension, presented to [facility] ED with chief complaints of worsening [...] By: Ángel Minaya MD 01/22/252307 Signed By: <Electronically signed by Ángel Minaya MD> 01/22/25 2313 [facility] Work Phone: 1(118) 916-526806-05-2025 [place] [address] Hospitalist H&P Signed Patient: Austin Golden MR#: [id number] : 1940 Acct:[id number] Age/Sex: 84 / F Adm Date: 5 Loc: ER Room: Type: [facility] ER Attending Dr: Copies to: MD Jazmin Connor DO Thomas D Kramer Jr, MD~ HPI DATE OF EXAMINATION: 01/22/25 CHIEF COMPLAINT: Shortness of breath HISTORY OF PRESENT ILLNESS: This is a 84-year-old female with significant past medical history of atrial fibrillation, CKD, coronary artery disease, anxiety, GERD, pulmonary hypertension, STONEY, hyperlipidemia, depression, hypertension, presented to [facility] ED with chief complaints of worsening [...] negative unless noted below or in HPI [facility] Medical History (Updated 01/22/25 @ 23:17 by [...] [facility] History of repair [...] Social History Comments: independent living at the [facility] Medications and Allergies Allergies No Known Allergies [...] mg PO DAILY #30 caps 09/17/24 [Rx Msiqnwjyz23/05/25] duloxetine 30 mg capsule,delayed release 30 mg [...] % (Auto) 17.7 % (.) 01/22/25 20:54 [place] % (Auto) 7.9 % (.) 01/22/25 20:54 Eos % (Auto) 2.5 % (.) 01/22/25 20:54 Baso % (Auto) 1.2 % (.) 01/22/25 20:54 Nucleat RBC Rel Count 0.2 /100 WBC (0-0.5) 01/22/25 20:54 Neut # (Auto) 5.5 x10E3/uL (1.8-7.7) 01/22/25 20:54 Lymph # (Auto) 1.4 x10E3/uL (1.00-4.8) 01/22/25 20:54 [place] # (Auto) 0.6 x10E3/uL (0.0-0.8) 01/22/25 20:54 [...] hypertension, STONEY, hyperlipidemia, depression, hypertension, presented to [facility] ED with chief complaints of worsening [...] Ángel Minaya MD 01/22/252307 Signed By: 01/22/25 5017 [facility]05-23-2025 Evaluation note* Diagnosis Onset Date Resolution [...] fibrillation resol phil January 09, 2025 2:26pm [facility] Work Phone: 1(779) 303-835705-23-2025 Evaluation note* Diagnosis Onset Date Resolution Status [...] response acute January 22, 2 025 10:45pm [facility] Work Phone: 1(262) 215-865505-23-2025 Evaluation note* Diagnosis Onset Date Resolution Status [...] Acute hypoxic respiratory failure [place] January 22, 2025 10:45pm ASHD (arteriosclerotic heart disease) acute January 22, 2025 10:45pm Atrial fibrillation with rap id ventricular response acute January 22 10:45pm CHF exacerbation acute January 10:45pm Chronic kidney disease acute [facility] 2024 10:45pm Diastolic heart failure acute [facility] 2024 10:45pm Esophageal dysmotility acute [facility] 2024 10:45pm Hypercholesterolemia acute January 22, 2025 10:45pm Paroxysmal atrial fibrillati on with rapid ventricular response acute January 22, 2025 10:45pm Persistent atrial fibrillation acute January 22, 2025 10:45pm Sick sinus syndrome acute January 22, 2025 10:45pm [facility] Work Phone: 1(363) 826-727305-20-2025 Evaluation + Plan note* Assessment & Plan Note - Nigel El MD - 01/06/2025 9:26 AM EDTAssociated Problem(s): History of repair of hiatal hernia -discussed risks/benefits of surgery--it is high risk due to her age and revisional nature of it -she will talk to her family and let me know if she'd like to proceed with surgery or just live with it [id number] Miscellaneous Notes* Assessment & Plan Note - Nigel El MD - 01/06/2025 9:26 AM EDTAssociated Problem(s): History of repair of hiatal hernia -discussed risks/benefits of surgery--it is high risk due to her age and revisional nature of it -she will talk to her family and let me know if she'd like to proceed with surgery or just live with it documented in this [id number] History of Present illness Narrative* Nigel El MD - 01/06/2025 9:21 AM EDT Phone numbers Preferred Documentation: Mode: Telephone Patient Patient Work Phone: Patient Cell Preferred phone: [phone] Consent: I confirmed patient understanding of the [...] OralBarium Sulfate 1 Tab Route: Oral FINDINGS: Clinic Licensed Practical Nurse fluoroscopic spot images of the abdomen: Non-obstructive [...] Nigel El MD, FACS documented in this [id number] History of Present illness Narrative* Nigel El MD - 12/31/2024 8:43 AM EDT This encounter was opened in error. Patient was a No-Show. Please disregard. Called twice, left message to reschedule. Nigel El MD documented in this [id number] Evaluation + Plan note* Assessment & Plan Note - Nigel El MD - 12/30/2024 9:17 AM EDT Associated Problem(s): History of repair of hiatal hernia -Evidence of recurrence on imaging/EGD -discussed non-operative vs operative management, patient elects to [id number] Miscellaneous Notes* Assessment & Plan Note - Nigel El MD - 12/30/2024 9:17 AM EDTAssociated Problem(s): History of repair of hiatal hernia -Evidence of recurrence on imaging/EGD -discussed non-operative vs operative management, patient elects to documented in this [id number] History of Present illness Narrative* Nigel El MD - 12/30/2024 9:13 AM EDT This encounter was opened in error. Patient was a No-Show. Please disregard. Called many times, left message to reschedule. Nigel El MD documented in this [id number] Telephone encounter Note* Telephone Encounter - Domenica Gloria - 12/11/2024 9:38 AM EDT LVM 12/11 @ 9:30 cancelling appt. Left my number for r/s- SO [id number] Miscellaneous Notes* Telephone Encounter - Domenica Gloria - 12/11/2024 9:38 AM EDT LVM 12/11 @ 9:30 cancelling appt. Left my number for r/s- SO documented in this [id number] Hospital Discharge instructions* Discharge Instructions* Nigel El [...] please contact the endoscopy center Mon-Sun 7:30am-4pm [phone] or after hours general [facility] number [phone] Severe abdominal pain that keeps getting worse Fever or any other signs of infection Nausea or vomiting blood Seeing persistent blood coming out of your rectum, with or without stool (some streaks or drops of blood may be expected) For any additional questions, please call the endoscopy center at [phone] Follow-up with your Primary Care Provider CC: Primary Care Provider: No primary care provider on file. * Attachments The following attachments cannot be sent through Care Everywhere. * Upper GI Endoscopy Discharge Instructions (Iranian) * Moderate Sedation in Adults Discharge Instructions (Iranian) * FALLSPREVENTION documented in this [id number] Miscellaneous Notes* OP Note - Nigel El MD - 12/08/2024 10:29 AM EDT Images from the original note were not included. Austin Golden 84 year old Surgical Contact Serial Number: [id number] Location: ENDO 04 Date: 12/08/2024 YARD SUPERVISOR: Nigel El MD ATTENDING:Nigel El MD Procedure(s): ESOPHAGOGASTRODUODENOSCOPY WITH ENDOFLIP INSTRUMENT: Scope #[id number] SEDATION: Anesthesia Assisted Pre-Op Diagnosis Codes: * [...] hernia without obstruction or gangrene (Primary Diagnosis) [544828] Hiatal hernia [274802] Gastroesophageal reflux disease without esophagitis [168065] TEE PATH SPECIMEN SENT: no SPECIMEN: None [...] please contact the endoscopy center Mon-Sun 7:30am-4pm [phone] or after hours general [facility] number [phone] Severe abdominal pain that keeps getting worse Fever or any other signs of infection Nausea or vomiting blood Seeing persistent blood coming out of your rectum, with or without stool (some streaks or drops of blood may be expected) For any additional questions, please call the endoscopy center at [phone] Follow-up with your Primary Care Provider CC: [...] were discussed with the patient and/or legal traffic representative. The risks, benefits and alternatives were reviewed. Questions regarding blood transfusions were answered. The patient /or the patient s legal traffic representative agree with the plan for transfusion of blood and/or blood components. documented in this [id number] Surgery Surgical operation note* OP Note - Nigel El MD - 12/08/2024 10:29 AM EDT Images from the original note were not included. Ausitn Golden 84 year old Surgical Contact Serial Number: [id number] Location: ENDO 04 Date: 12/08/2024 YARD SUPERVISOR: Nigel El MD ATTENDING:Nigel El MD Procedure(s): ESOPHAGOGASTRODUODENOSCOPY WITH ENDOFLIP INSTRUMENT: Scope #[id number] #[id number] SEDATION: Anesthesia Assisted Pre-Op Diagnosis Codes: * [...] hernia without obstruction or gangrene (Primary Diagnosis) [898283] Hiatal hernia [262530] Gastroesophageal reflux disease without esophagitis [530520] TEE PATH SPECIMEN SENT: no SPECIMEN: None [...] please contact the endoscopy center Mon-Fri 7:30am-4pm [phone] or after hours general [facility] number [phone] Severe abdominal pain that keeps getting worse Fever or any other signs of infection Nausea or vomiting blood Seeing persistent blood coming out of your rectum, with or without stool (some streaks or drops of blood may be expected) For any additional questions, please call the endoscopy center at [phone] Follow-up with your Primary Care Provider CC: Primary Care Provider: No primary care provider on file. PERSON COMPLETING NOTE: Nigel El MD 12/08/2024 at 10:41 AM Patient meets criteria for discharge/transfer: Nigel El MD [id number] History and physical note* Checo Sotomayor MD - 12/08/2024 10:08 AM EDT Images from the original note were not included. [facility] H&P Austin Golden [id number] History (HPI) Austin Golden is a 84 [...] El MD at 12/08/2024 10:16 AM EDT [facility] Work Phone: 1(784) 883-320404-21-2025 History and physical note* Checo Sotomayor MD - 12/08/2024 10:08 AM EDT Images from the original note were not included. [facility] H&P Austin Golden [id number] History (HPI) Austin Golden is a 84 [...] 12/08/2024 10:16 AM EDT documented in this [id number] Progress note* Blood Attestation - Ernesto Parker MD - 12/08/2024 9:57 AM EDT Blood Attestation: ATTESTATION OF INFORMED CONSENT FOR BLOOD: The transfusion of blood and/or blood components were discussed with the patient and/or legal traffic representative. The risks, benefits and alternatives were reviewed. Questions regarding blood transfusions were answered. The patient /or the patient s legal traffic representative agree with the plan for transfusion of blood and/or blood components. [facility] Work Phone: 1(907) 281-650204-08-2025 Telephone encounter Note* Telephone Encounter - Aidee [...] your last menstrual period? N/a Protocols used: Rraygryq-P-JB [id number] Miscellaneous Notes* Telephone Encounter - Aidee Pyle [...] your last menstrual period? N/a Protocols used: Fqipwthm-B-AK * Telephone Encounter - Bonnie Clarke RN [...] Triage Nurse. Thank you! documented in this [id number] Telephone encounter Note* Telephone Encounter - Bonnie Clarke RN - 11/25/2024 4:44 PM EDT What is the need: Situation: returning patients call Background: n/a Assessment: pt unable to provide three identifiers, states she is sick and to call back later. Recommendation: no advise given, RN offered to call 911 for patient, pt declined. Bonnie Clarke RN [id number] Telephone encounter Note* Telephone Encounter - Maria Eugenia Quach - 11/25/2024 4:31 PM EDT Caller: The Pt Symptoms: Pt states that she is not able to keep food down. Patient is requesting a call back from the Triage Nurse. Thank you! [id number] Telephone encounter Note* Telephone Encounter - Bonnie [...] last menstrual period? N/a Protocols used: Swallowing Uhysawnfvh-W-OA [id number] Miscellaneous Notes* Telephone Encounter - Bonnie Clarke [...] last menstrual period? N/a Protocols used: Swallowing Zxejbkzozj-G-DH * Telephone Encounter - Cristiana Vieira - 11/11/2024 4:10 PM EDT Caller warm-transferred to [facility] Nurse for Sx/Buzzword situation of: Food [...] Telephone Number: Telephone Information: documented in this [id number] Telephone encounter Note* Telephone Encounter - Cristiana Vieira - 11/11/2024 4:10 PM EDT Caller warm-transferred to [facility] Nurse for Sx/Buzzword situation of: Food [...] coming back Caller's Telephone Number: Telephone Information: [id number] History of Present illness Narrative* Maxwell Medrano MD - 10/23/2024 11:00 AM EST CARDIOLOGY OFFICE VISIT CHIEF COMPLAINT Chief Complaint Patient presents with Follow-up HISTORY OF PRESENT ILLNESS HPI 84-year-old female with a past medical history of hypertension, hyperlipidemia. Patient had a long history of atrial fibrillation for which she started seeing [facility] since 2020 aftershe was hospitalized in [facility] for bradycardia. Adjustment of her medical [...] therapy. Patient is being evaluated recently at [facility] for ablation therapy for atrial [...] breath. She [facility] the [facility]. During this admission she was in atrial flutter. Rates were controlled between 60 to 90 bpm. She underwent cardioversion with successful protestant to sinus rhythm for at least a [...] evaluation. She in the mid admitted to [facility] in June 23, 2024 for shortness of breath. She underwent cardioversion July 02 with successful protestant of sinus rhythm. Patient states that after cardioversion she did not notice any difference in her shortness of breath. She went home and then her symptoms got exacerbated and she ended up back at [facility] the beginning of July 2024 with [...] She apparently saw a GI service from [facility]. They were planning to do a procedure but because of her symptoms improved she put her procedure on hold. For the last few days she started noticing again problems swallowing. Patient had a device interrogation today. She does have a [employer] medical dual-chamber pacemakerMedtronic with battery longevity 6 years 6 months. [place] of atrial fibrillation 44% of the time. [...] she is feeling much better from the production sanitizer on point. She does not recall having [...] of Martín Medrano MD. [facility] Work Phone: 1(133) 285-509503-06-2025 Instructions* Patient Instructions* Jenna Cheng MA - 10/23/2024 11:00 AM EST PVI ABLATION TO BE DONE BY DR. MEDRANO. PATIENT TO HAVE A CT ANGIO ANYTIME PRIOR TO PROCEDURE. VIRA TO BE DONE THE DAY BEFORE. TAKE ALL MEDICATIONS as USUAL. LABS TO BE DONE 1 WEEK PRIOR. documented in this [facility]Dayton [facility] Work Phone: 1(845) 567-851701-24-2025 [facility]iology [facility] [place] [address] [place] [address] CT Scan Report Signed Patient: Austin Golden MR#: [id number] : 1940 Acct:[id number] Age/Sex: 83 / F ADM Date: 5 Loc: ER Room: Type: [facility] ER Attending Dr: Copies to: Gracia [...] Thomas Haskins M.D.09/12/2024 12:37 PM Dictation Location: [place] [address] Transcribed By: [facility] 09/12/24 1237 Dictated By: Thomas Haskins II, MD 09/12/24 1233 Signed By: 09/12/24 1237 [facility] Work Phone: 1(167) 874-684101-17-2025 History of Present illness Narrative* Debbie Mac [...] obstruction. She has been followed by [facility]. She continues to experience on and off [...] By signing my name below, Maggy Brown LPN, Scribe attest that this documentation has [...] exam, discussion and plan. documented in this [facility] Work Phone: 1(167) 963-844001-17-2025 Instructions* Patient Instructions* Maggy Vee LPN - [...] routine Pft 6 months documented in this [facility] Work Phone: 1(390) 127-536312-30-2024 History of Present illness Narrative* Katie Yung MD - 08/18/2024 5:01 PM EST Documentation: Mode: Telephone Patient Patient Work Phone: Patient Cell Preferred phone: [phone] Consent: I confirmed patient understanding of the [...] found for: INR Assessment and Plan Austin Allred Zander is a 83 year old female with [...] Yung MD Division of Gastroenterology & Hepatology [facility] 08/18/24, 5:01 PM documented in this [id number] History of Present illness Narrative* Katie Yung MD - 07/29/2024 11:34 AM EST This encounter was opened in error. Patient was a No-Show (she was admitted to hospital at time of this appt). Please disregard. documented in this [id number] History of Present illness Narrative* Maxwell Medrano MD - 07/28/2024 11:30 AM EST CARDIOLOGY OFFICE VISIT CHIEF COMPLAINT Chief Complaint Patient presents with Follow-up HISTORY OF PRESENT ILLNESS HPI 83-year-old female with a past medical history of hypertension, hyperlipidemia. Patient had a long history of atrial fibrillation for which she started seeing [facility] since 2020 aftershe was hospitalized in [facility] for bradycardia. Adjustment of her medical [...] therapy. Patient is being evaluated recently at [facility] for ablation therapy for atrial [...] with no evidence of ischemia. Echocardiogram in 2020 shows normal left ventricular function wall of [...] breath. She ended in the hospital at [facility]. During this admission she was in atrial flutter. Rates were controlled between 60 to 90 bpm. She underwent cardioversion with successful protestant to sinus rhythm for at least a [...] evaluation. She in the mid admitted to [facility] in June 23, 2024 for shortness of breath. She underwent cardioversion July 02 with successful protestant of sinus rhythm. Patient states that after cardioversion she did not notice any difference in her shortness of breath. She went home and then her symptoms got exacerbated and she ended up back at 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 documented in this [facility]Day[facility] Work Phone: 1(995) 743-676712-09-2024 Instructions* Patient Instructions* Raysa Fermin MA - 07/28/2024 11:30 AM EST PLEASE BRING ALL MEDICATION BOTTLES TO OFFICE VISITS. CALL THE OFFICE WITH MEDICATION BOTTLES TO DISCUSS AND UPDATE MEDICATION LIST. CALL [phone] OPTION #4. documented in this encounterDayton [facility] Work Phone: 1(976) 907-571412-02-2024 Telephone encounter Note* Telephone Encounter - Stephen Simpson RN - 07/21/2024 12:45 PM EST Situation: Call transfer from [facility] with breathing issues. Attempt to help with EMS but difficulties. Call to EMS but told unable to send and unable to conference call. Patient disconnected. Attempt to call but no answer. Call to [facility] managed by [facility] whom [facility]. Patient lives [facility] independent living [facility]. [facility] will call to have her checked out. Patient needs to get life alert. Background: See above. Cardiology with . Assessment: Message to Dr. Yung. Stephaniei Recommendation: [id number] Miscellaneous Notes* Telephone Encounter - Stephen Simpson RN - 07/21/2024 12:45 PM EST Situation: Call transfer from [facility] with breathing issues. Attempt to help with EMS but difficulties. Call to EMS but told unable to send and unable to conference call. Patient disconnected. Attempt to call but no answer. Call to [facility] managed by [facility] whom [facility]. Patient lives [facility]. [facility] will call to have her checked out. Patient needs to get life alert. Background: See above. Cardiology with . Assessment: Message to Dr. Yung. Stephaniei Recommendation: * Telephone Encounter - Maria Eugenia Quach - 07/21/2024 12:39 PM EST Caller transferred to nurse for sx of: Shortness of Breath, Abdominal or Chest Pain, (Patient is not sure which it is). documented in this [id number] Telephone encounter Note* Telephone Encounter - Maria Eugenia Quach - 07/21/2024 12:39 PM EST Caller transferred to nurse for sx of: Shortness of Breath, Abdominal or Chest Pain, (Patient is not sure which it is). [id number] Evaluation note* Diagnosis Onset Date Resolution Status Admit Date GERD (gastroesophageal reflu x disease) acute July 09, 2:54pm Primary hypertension acute Nove mb2023 2:54pm Chronic heart failure with preserved ejection fraction (HFpEF) resolved July 09 024 2:54pm Paroxysmal atrial fibrillation resolved July 09 024 2:54pm Esophageal obstruction inactive No vember 2023 2:54pm Stage 3a chronic kidney disease deleted July 09 024 2:54pm Acute kidney injury inactive Decem kateryna 2023 9:28pm Atrial fibrillation with rapid ventricular response inactive Decem kateryna 2023 9:28pm Atypical chest pain inactive Decem kateryna 2023 9:28pm Dysphagia inactive July 21, 2024 9:28pm Elevated troponin inactive Decembe r 2023 9:28pm Esophageal obstruction inactive De 2023 9:28pm GERD (gastroesophageal reflu x disease) acute July 31 11:23am Primary hypertension acute Dece 2023 11:23am Chronic heart failure with preserved ejection fraction (HFpEF) resolved July 31 11:23am Paroxysmal atrial fibrillation resolved July 31 11:23am Esophageal obstruction inactive De cem2023 11:23am Stage 3a chronic kidney disease deleted July 31 024 11:23am Abrasion of elbow, left acute J anuary 2024 2:04pm Abrasion of knee, left, infected acute August 27 2:04pm Chest wall contusion acute 2024 2:04pm Acute on chronic heart failure with preserved ejection fraction (HFpEF) acute 2024 3:04pm ASHD (arteriosclerotic heart disease) acute September 09 3:04pm Atrial fibrillation acute 2024 3:04pm Chest wall contusion acute 2024 3:04pm Chronic kidney disease acute Ja nuary 2024 3:04pm Dysphagia acute September 09, 2024 3:04pm Primary hypertension acute Gonzalez abdoul 2024 3:04pm Rectal bleeding acute August 212024 3:04pm [facility] Work Phone: 1(298) 500-611211-13-2024 Progress note Author Javed Dee [facility] Note Date/Time July 02, 2024 3:59pm [facility] [address] [place] [address] Cardiology Progress Note Signed Patient: Austin Golden MR#: [id number] : 1940 Acct:[id number] Age/Sex: 83 / F Adm Date: 4 Loc: Room: [address] [place] [address] Type: ADM IN Attending Dr: Shilpa Fenton [...] catheterization performed earlier this year at [facility] revealing mild coronary disease and [...] % (Auto) 72.9 Lymph % (Auto) 19.1 [place] % (Auto) 4.8 Eos % (Auto) 1.9 Baso % (Auto) 1.3 Nucleat RBC Rel Count 0.2 Neut # (Auto) 6.7 Lymph # (Auto) 1.7 [place] # (Auto) 0.4 Eos # (Auto) 0.2 [...] risk medication use: Code(s): Z79.899 - Other exterminator termite (current) drug therapy (3) Chronic heart failure [...] Javed Dee DO 07/02/24 155 Signed By: <Electronically signed by Javed Dee DO> 07/02/24 [facility] Work Phone: 1(530) 528-776411-13-2024 [place] [address] Cardiology Progress Note Signed Patient: Austin Golden MR#: [id number] : 1940 Acct:[id number] Age/Sex: 83 / F Adm Date: 4 Loc: Room: [address] [place] [address] Type: ADM IN Attending Dr: Shilpa Fenton [...] catheterization performed earlier this year at [facility] revealing mild coronary disease and [...] % (Auto) 72.9 Lymph % (Auto) 19.1 [place] % (Auto) 4.8 Eos % (Auto) 1.9 Baso % (Auto) 1.3 Nucleat RBC Rel Count 0.2 Neut # (Auto) 6.7 Lymph # (Auto) 1.7 [place] # (Auto) 0.4 Eos # (Auto) 0.2 [...] risk medication use: Code(s): Z79.899 - Other exterminator termite (current) drug therapy (3) Chronic heart failure [...] Dee DO 07/02/241555 Signed By: 07/02/24 1559 [facility]11-13-2024 Progress note Author Shilpa Fenton [facility] Note Date/Time July 02, 2024 1:06pm [facility] [address] [place] [address] Hospitalist Progress Note Signed Patient: Austin Golden MR#: [id number] : 1940 Acct:[id number] Age/Sex: 83 / F Adm Date: 4 Loc: Room: [address] [place] [address] Type: ADM IN Attending Dr: Shilpa Fenton [...] Laboratory work up and Imaging studies reviewed desktop support consultant - reviewed, remains in atrial fibrillation but [...] <Electronically signed by Shilpa Fenton MD> 07/02/24 [employer] Work Phone: 1(988) 737-479811-13-2024 [place] [address] Hospitalist Progress Note Signed Patient: Austin Golden MR#: [id number] : 1940 Acct:[id number] Age/Sex: 83 / F Adm Date: 4 Loc: Room: [address] [place] [address] Type: ADM IN Attending Dr: Shilpa Fenton [...] Laboratory work up and Imaging studies reviewed desktop support consultant - reviewed, remains in atrial fibrillation but [...] MD 07/02/24 1303 Signed By: 07/02/24 1306 [facility]11-13-2024 [place] [id number] Cardiology Procedure Note Signed Patient: Austin Golden MR#: [id number] : 1940 Acct:[id number] Age/Sex: 83 / F Adm Date: 4 Loc: Room: [address] [place] [address] Type: ADM IN Attending Dr: Shilpa Fenton MD Copies to: DO Jimena Carias MD, [facility] Shilpa Fenton MD~ Cardiology Procedures DATE/PROVIDER Date: 07/02/2024 Jimena Smith MD CARDIOVERSION ASA Classification: 2 Mallampati Score: Class II Pre-Operative Diagnosis: Atrial Fibrillation Post-Operative Diagnosis: Orthodox of sinus rhythm Procedure Description: After obtaining [...] 60 bpm. Documented By: Jimena Smith MD, [facility] 0912 Signed By: 07/02/24 0914 [facility]11-12-2024 Progress note Author Shilpa Fenton [facility] Note Date/Time July 01, 2024 3:17pm [facility] [address] [place] [address] Hospitalist Progress Note Signed Patient: Austin Golden MR#: [id number] : 1940 Acct:[id number] Age/Sex: 83 / F Adm Date: 4 Loc: 3T Room: [address] [place] [address] Type: ADM IN Attending Dr: Shilpa Fenton [...] Laboratory work up and Imaging studies reviewed desktop support consultant - reviewed, remains in atrial fibrillation but [...] <Electronically signed by Shilpa Fenton MD> 07/01/24 1513 [facility] Work Phone: 1(335) 998-673911-12-2024 [place] [address] Hospitalist Progress Note Signed Patient: Austin Golden MR#: [id number] : 1940 Acct:[id number] Age/Sex: 83 / F Adm Date: 4 Loc: Room: [address] [place] [address] Type: ADM IN Attending Dr: Shilpa Fenton [...] Laboratory work up and Imaging studies reviewed desktop support consultant - reviewed, remains in atrial fibrillation but [...] 06/30/24 21:00 07/01/24 09:01 Pantoprazole 40 Mg Tablet. PO 06/30/25 20:59 40 mg BID KWAN [...] stable Documented By: Shilpa Fenton MD 07/01/24 151 Signed By: 07/01/24 1517 [facility]11-12-2024 Consult note Author W Luiz [facility] Note Date/Time July 01, 2024 11:50am [facility] [address] [place] [address] Cardiology Consult Note Signed Patient: Austin Golden MR#: [id number] : 1940 Acct:[id number] Age/Sex: 83 / F Adm Date: 4 Loc: 3T Room: [address] [place] [address] Type: ADM IN Attending Dr: Shilpa Fenton [...] exertional dyspnea. She declines chest discomfort to la. Troponins are mildly elevated, initially at 101 and 85, and currently 92 (notably, she has chronic troponin elevation upon review of her EMR). Renal function is normal. Patient had recent heart catheterization performed earlier this year at [facility] revealing mild coronary disease and [...] reveals ventricular paced rhythm with underlying A-fib Emily of this past year she was admitted for pulmonary edema, atrial fibrillationwith RVR underwent successful cardioversion and diuresis. It appears that her atrial fibrillation (diastolic dysfunction) is recurrent, likely causative for her shortness of breath Recommendations: Escalate amiodarone to 400 daily, and repeat cardioversion [facility] Medical History (Updated 07/01/24 @ 11:49 by [...] Social History Comments: independent living at the [facility] Medications and Allergies Allergies No Known Allergies [...] Lymph # (Auto) 1.4 1.4 (1.00-4.8) x10E3/uL [place] # (Auto) 0.6 0.5 (0.0-0.8) x10E3/uL Eos [...] risk medication use: Code(s): Z79.899 - Other exterminator termite (current) drug therapy (3) Chronic heart failure [...] signed by Javed Dee DO> 07/01/24 1150 [facility] Work Phone: 1(480) 560-261711-12-2024 [place] [address] Cardiology Consult Note Signed Patient: Austin Golden MR#: [id number] : 1940 Acct:[id number] Age/Sex: 83 / F Adm Date: 4 Loc: Room: [address] [place] [address] Type: ADM IN Attending Dr: Shilpa Fenton [...] exertional dyspnea. She declines chest discomfort to la. Troponins are mildly elevated, initially at 101 and 85, and currently 92 (notably, she has chronic troponin elevation upon review of her EMR). Renal function is normal. Patient had recent heart catheterization performed earlier this year at [facility] revealing mild coronary disease and normal left [...] amiodarone to 400 daily, and repeat cardioversion [facility] Medical History (Updated 07/01/24 @ 11:49 by [...] of Phys. [facility]HR [facility] CHF (congestive heart failure) Problem List [...] of Phys. EHR [facility] Atrial fibrillation with RVR Problem List clean-up per request of Phys. EHR [facility] Hernia of abdominal wall Problem List clean-up per request of Phys. EHR [facility] Surgical History History of repair [...] Social History Comments: independent living at the [facility] Medications and Allergies Allergies No Known Allergies [...] mg PO DAILY #30 caps 04/01/24 [Rx Wanonqscl12/11/24] multivitamin 1 tab PO DAILY 04/01/24 [History [...] See Rx Instructions .Route .COMPLEX #90 tabs 10/21/24 [Rx Confirmed 06/30/24] bupropion HCl 300 mg [...] Lymph # (Auto) 1.4 1.4 (1.00-4.8) x10E3/uL [place] # (Auto) 0.6 0.5 (0.0-0.8) x10E3/uL Eos [...] risk medication use: Code(s): Z79.899 - Other correction (current) drug therapy (3) Chronic heart failure [...] DO 07/01/24 1138 Signed By: 07/01/24 1150 [facility]11-11-2024 History and physical note Author Shilpa Fenton [facility] Note Date/Time June 30, 2024 7:23pm [facility] [address] [place] [address] Hospitalist H&P Signed Patient: Austin Golden MR#: [id number] : 1940 Acct:[id number] Age/Sex: 83 / F Adm Date: 4 Loc: Room: [address] [place] [address] Type: ADM IN Attending Dr: Shilpa Fenton [...] Previous records in the computer system reviewed [facility] Medical History Anxiety High risk medication use [...] of Phys. EHR [facility] Fibromyalgia Problem List clean-up per [...] of Phys. EHR [facility] Pacemaker Problem List clean-up per request of Phys. EHR Cmte Atrial fibrillation, persistent Problem List clean-up per request of Phys. EHR Cmte COVID-19 2019 Problem List clean-up per request of Phys. EHR [facility] Atrial fibrillation with RVR Problem List clean-up per request of Phys. EHR [facility] Hernia of abdominal wall Problem List clean-up per request of Phys. EHR [facility] Surgical History History of repair [...] Social History Comments: independent living at the [facility] Medications and Allergies Allergies No Known Allergies [...] % (Auto) 14.0 % (.) 06/30/24 15:04 [place] % (Auto) 5.9 % (.) 06/30/24 15:04 Eos % (Auto) 1.5 % (.) 06/30/24 15:04 Baso % (Auto) 0.8 % (.) 06/30/24 15:04 Nucleat RBC Rel Count 0.1 /100 WBC (0-0.5) 06/30/24 15:04 Neut # (Auto) 8.1 x10E3/uL (1.8-7.7) H 06/30/24 15:04 Lymph # (Auto) 1.4 x10E3/uL (1.00-4.8) 06/30/24 15:04 [place] # (Auto) 0.6 x10E3/uL (0.0-0.8) 06/30/24 15:04 [...] <Electronically signed by Shilpa Fenton MD> 06/30/241922 [facility] Work Phone: 1(485) 653-974211-11-2024 Evaluation note* Diagnosis Onset Date Resolution Status Admit Date Acute electrocardiogram changes reso lved June 30, 2024 5:45pm Chest pain resolved June 30, 2024 5:45pm Chronic heart failure with preserved ejection fraction (HFpEF) resolved June 30, 024 5:45pm Elevated troponin resolved Novembe 2023 5:45pm High risk medication use resolved [...] failure with preserved ejection fraction (HFpEF) resolved Rodrigo 12th, 2 024 11:23am Paroxysmal atrial fibrillation resol phil July 31, 2024 11:23am Esophageal obstruction inactive 2023 11:23am Abrasion of elbow, left acute J anuary 2024 2:04pm Abrasion of knee, left, infected acu te August 27, 2024 2:04pm Chest wall contusion acute Gonzalez abdoul 2024 2:04pm [facility] Work Phone: 1(278) 461-699711-11-2024 Evaluation note* Diagnosis Onset Date Resolution Status [...] 3:04pm Rectal bleeding acute August 212024 3:04pm [facility] Work Phone: 1(235) 584-336711-11-2024 [place] [address] Hospitalist H&P Signed Patient: Austin Golden MR#: [id number] : 1940 Acct:[id number] Age/Sex: 83 / F Adm Date: 4 Loc: Room: [address] [place] [address] Type: ADM IN Attending Dr: Shilpa Fenton [...] Previous records in the computer system reviewed [facility] Medical History Anxiety High risk medication use [...] Social History Comments: independent living at the [facility] Medications and Allergies Allergies No Known Allergies [...] mg PO DAILY #30 caps 04/01/24 [Rx Kwrggxqjc39/11/24] multivitamin 1 tab PO DAILY 04/01/24 [History [...] % (Auto) 14.0 % (.) 06/30/24 15:04 [place] % (Auto) 5.9 % (.) 06/30/24 15:04 Eos % (Auto) 1.5 % (.) 06/30/24 15:04 Baso % (Auto) 0.8 % (.) 06/30/24 15:04 Nucleat RBC Rel Count 0.1 /100 WBC (0-0.5) 06/30/24 15:04 Neut # (Auto) 8.1 x10E3/uL (1.8-7.7) H 06/30/24 15:04 Lymph # (Auto) 1.4 x10E3/uL (1.00-4.8) 06/30/24 15:04 [place] # (Auto) 0.6 x10E3/uL (0.0-0.8) 06/30/24 15:04 [...] Fenton MD 06/30/24 183 Signed By: 06/30/241922 [facility]11-11-2024 Radiology Diagnostic study note [facility] Main [place] [address] [place] [address] CT Scan Report Signed Patient: Austin Golden MR#: [id number] : 1940 Acct:[id number] Age/Sex: 83 / F ADM Date: 4 Loc: ER Room: Type: [facility] ER Attending Dr: Copies to: Vic [...] Juanito Borja M.D.06/30/2024 3:47 PM Dictation Location: [place] [address] Transcribed By: [facility] 06/30/241546 Dictated By: Juanito Borja DO 06/30/241541 Signed By: 06/30/24 154 [facility]11-04-2024 NoteCalled radiology ext [phone]. Requested soemone in the department to reach out to the patient to discuss what is expected prior to and in the procedure for timed barium esophogram. Staffing took the number and agreed to abhianv the patient.[employer]11-04-2024 Telephone encounter Note* Telephone Encounter - Isabel Menard RN - 06/23/2024 11:23 AM EST Called radiology ext [phone]. Requested soemone in the department to reach out to the patient to discuss what is expected prior to and in the procedure for timed barium esophogram. Staffing took the number and agreed to abhinav the patient. [id number] Miscellaneous Notes* Telephone Encounter - Isabel Menard RN - 06/23/2024 11:23 AM EST Called radiology ext [phone]. Requested soemone in the department to reach out to the patient to discuss what is expected prior to and in the procedure for timed barium esophogram. Staffing took the number and agreed to abhinav the patient. * Telephone Encounter - Cristiana Vieira - 06/23/2024 10:19 AM EST Pt has questions about her upcoming procedure 06/26/2024 Would like to discuss with provider Telephone Information: [employer] [phone] * Telephone Encounter - Cristiana Vieira - 06/13/2024 4:[address] العلي office calling waiting for order to be placed for timed barium esophagogram Jazmin العلي [address] [place], [place] [address] option #[address] العيل's nurse line Leela Encounter dated 05/29/2024 from [...] be scheduled. Thank you documented in this [id number] NotePt has questions about her upcoming procedure 06/26/2024 Would like to discuss with provider Telephone Information: [facility] [id number] Telephone encounter Note* Telephone Encounter - Cristiana Vieira - 06/23/2024 10:19 AM EST Pt has questions about her upcoming procedure 06/26/2024 Would like to discuss with provider Telephone Information: [id number] Telephone encounter Note* Telephone Encounter - Cristiana Vieira - 06/13/2024 4:[address] العلي office calling waiting for order to be placed for timed barium esophagogram Jazmin العلي [address] [place], [place] [address] option #[address] العلي's nurse line Leela Encounter dated 05/29/[address] Yung Recommendations: Obtain timed barium esophagram or endoflip to confirm diagnosis. Dr Yung recommended pt has this procedure Telephone Information: [id number] NoteDrMeilta العلي's office call regarding results from patient's procedure on 05/29/24.. Dr. العلي states recommendations as follows: Obtain timed barium esophagram or endoflip to confirm diagnosis, would like order to be placed so that patient may have this done. Please call patient once order is placed to be scheduled. Thank [facility] Reniac [id number] Telephone encounter Note* Telephone Encounter - Evelyn [...] is placed to be scheduled. Thank you [id number] Evaluation note* Diagnosis Onset Date Resolution Status [...] preserved ejection fraction (HFpEF) resolved July 31 2 024 11:23am Paroxysmal atrial fibrillation resol phil July 31, 2024 11:23am Esophageal obstruction inactive De 2023 11:23am [facility] Work Phone: 1(651) 505-470910-22-2024 Evaluation note* Diagnosis Onset Date Resolution Status [...] wall contusion acute Gonzalez abdoul 2024 2:04pm [facility] Work Phone: 1(146) 517-509810-22-2024 Evaluation note* Diagnosis Onset Date Resolution Status [...] acute Stage 3a chronic kidney disease acute [facility] Work Phone: 1(837) 373-670110-17-2024 History of Present illness Narrative* Maxwell Medrano MD - 06/05/2024 12:00 PM EDT CARDIOLOGY OFFICE VISIT CHIEF COMPLAINT Chief Complaint Patient presents with Follow-up HISTORY OF PRESENT ILLNESS HPI 83-year-old female with a past medical history of hypertension, hyperlipidemia. Patient had a long history of atrial fibrillation for which she started seeing [facility] since 2020 aftershe was hospitalized in [facility] for bradycardia. Adjustment of her medical [...] therapy. Patient is being evaluated recently at [facility] for ablation therapy for atrial [...] breath. She [facility]. During this admission she was in atrial flutter. Rates were controlled between 60 to 90 bpm. She underwent cardioversion with successful protestant to sinus rhythm for at least a [...] GI service with upper GI scope at [facility] whofound his scope difficult to pass [...] of Martín Medrano MD. documented in this [facility] Work Phone: 1(235) 887-176010-17-2024 Instructions* Patient Instructions* Nesha Wilson LPN - 06/05/2024 12:[address] Medrano wants pt to see Katie Yung MD [facility] for Gastrointestinal for weakness, vomiting and unable to eat. [place] [employer] to help schedule. If you continue not to feel good going into the weekend and you are short of breath and not feelingwell go to [facility]. Dr. Medrano is electronic pagination system operator this weekend. He said if you do go to [facility] to call [phone] and speak with our on-call team and tell them to notify Dr. Medrano you are going to hospital so he can see you. DID YOU KNOW We have a pharmacy here in the [facility]. They can fill all prescriptions, not just cardiac medications. Prescriptions from other pharmacies can easily be transferred to the pharmacy by the pharmacist on site. pharmacies offer FREE HOME DELIVERY on medications to anywherein [place]. They can sync your medications. Typically prescriptions can be ready in 10 - 15 minutes. If pharmacy is unable to fill your prescription or if cost is more than your paying now the Pharmacist can easily transfer back to your Pharmacy of choice. Pharmacy phone # [phone]. Please bring all medicines, vitamins, and herbal supplements with you in original bottles to every appointment!!!! Prescriptions will not be filled unless you are compliant with your follow up appointments or have a follow up appointment scheduled as per instruction of your physician. Refills should be requested at the time of your visit. [facility] Work Phone: 1(540) 464-188910-10-2024 Hospital Discharge instructions* Discharge Instructions* Kaylah Ledesma [...] PCP. 3. F/u with Amna Powell at [facility] * Attachments The following attachments cannot be sent through Care Everywhere. * Upper GI Endoscopy Discharge Instructions (Iranian) * Esophageal Manometry (Iranian) * Moderate Sedation in Adults Discharge Instructions (Iranian) * FALLSPREVENTION documented in this [id number] Surgery Surgical operation note* OP Note - [...] undergo sedation with the assistance of anesthesia physician/MASTER CHEF team. Please see corresponding note for full details. Katie Yung MD 05/29/24 1:08 PM Austin Golden 83 year old Surgical Contact Serial Number: [id number] Location: ENDO 02 Date: 05/29/2024 YARD SUPERVISOR: Katie Yung MD ATTENDING:Katie Yung MD Procedure(s): [...] 50cm. Taped to right cheek. Esophageal dysphagia [[id number]] TEE PATH SPECIMEN SENT: no SPECIMEN: None [...] PCP. 3. F/u with Amna Powell at [facility] CC: Primary Care Provider: No primary care provider on file. PERSON COMPLETING NOTE: Katie Yung MD 05/29/2024 at 1:08 PM Patient meets criteria for discharge/transfer: Katie Yung MD [id number] Miscellaneous Notes* OP Note - Katie Yung [...] undergo sedation with the assistance of anesthesia physician/MASTER CHEF team. Please see corresponding note for full details. Katie Yung MD 05/29/24 1:08 PM Austin Golden 83 year old Surgical Contact Serial Number: [id number] Location: ENDO 02 Date: 05/29/2024 YARD SUPERVISOR: Katie Yung MD ATTENDING:Katie Yung MD Procedure(s): [...] 50cm. Taped to right cheek. Esophageal dysphagia [[id number]] TEE PATH SPECIMEN SENT: no SPECIMEN: None [...] PCP. 3. F/u with Amna Powell at [facility] CC: Primary Care Provider: No primary care provider on file. PERSON COMPLETING NOTE: Katie Yung MD 05/29/2024 at 1:08 PM Patient meets criteria for discharge/transfer: Katie Yung MD documented in this [id number] Evaluation note* Diagnosis Onset Date Resolution Status [...] Cirrhosis acute GERD (gastroesophageal reflux disease) acute [facility] Work Phone: 1(235) 718-831309-26-2024 NoteGI Motility Lab Note Pre-procedure: Patient verified [...] and Signs of infection such as feverThe [facility] CenterPharmAthene [id number] Evaluation note* Diagnosis Onset Date Resolution Status [...] GERD (gastroesophageal reflux disease) acute Vomiting acute [facility] Work Phone: 1(864) 589-552509-09-2024 History of Present illness Narrative* Maxwell Medrano MD - 04/28/2024 11:30 AM EDT CARDIOLOGY OFFICE VISIT CHIEF COMPLAINT Chief Complaint Patient presents with Follow-up 2 WEEK HISTORY OF PRESENT ILLNESS HPI 83-year-old female with a past medical history of hypertension, hyperlipidemia. Patient had a long history of atrial fibrillation for which she started seeing [facility] heart constantia since 2020 aftershe was hospitalized in [facility] for bradycardia. Adjustment of her medical [...] therapy. Patient is being evaluated recently at [facility] for ablation therapy for atrial [...] breath. She ended in the hospital at [facility]. During this admission she was in atrial flutter. Rates were controlled between 60 to 90 bpm. She underwent cardioversion with successful protestant to sinus rhythm for at least a [...] Sen medical with battery longevity 6.3 years. [place] of atrial fibrillation 58% of the time [...] name below, I, Nesha Wilson LPN , [employer] attest that this documentation has been prepared under the direction and in the presence of Martín Medrano MD. documented in this [facility] Work Phone: 1(434) 814-673209-09-2024 Instructions* Patient Instructions* Nesha Wilson LPN - 04/28/2024 11:30 AM EDT Increase Amiodarone to 200 mg twice daily x 1 week,then decrease to 1 tablet daily thereafter. DID YOU KNOW We have a pharmacy here in the [facility]. They can fill all prescriptions, not just cardiac medications. Prescriptions from other pharmacies can easily be transferred to the pharmacy by the pharmacist on site. pharmacies offer FREE HOME DELIVERY on medications to anywherein [place]. They can sync your medications. Typically prescriptions can be ready in 10 - 15 minutes. If pharmacy is unable to fill your prescription or if cost is more than your paying now the Pharmacist can easily transfer back to your Pharmacy of choice. Pharmacy phone # [phone]. Please bring all medicines, vitamins, and herbal supplements with you in original bottles to every appointment!!!! Prescriptions will not be filled unless you are compliant with your follow up appointments or have a follow up appointment scheduled as per instruction of your physician. Refills should be requested at the time of your visit. documented in this [facility] Work Phone: 1(369) 813-142909-05-2024 History of Present illness Narrative* Debbie Mac [...] Scribe Attestation By signing my name below, IMaggy LPN, Scribe attest that this documentation has [...] exam, discussion and plan. documented in this [facility] Work Phone: 1([phone]) 506-639309-05-2024 Instructions* Patient Instructions* Maggy Vee LPN - [...] take amio 2 weeks documented in this [facility] Work Phone: 1([phone]) 349-522808-30-2024 Evaluation note* Diagnosis Onset Date Resolution Status Admit Date Dyspepsia acute April 18 10:03am GERD (gastroesophageal reflu x disease) acute April 18 10:03am Vomiting acute April 18 10:03am Acute on chronic heart failu re [...] 10, 2024 3:15pm Primary hypertension acute Octo kateryna 2023 [...] disease acut e July 09, 2024 2:54pm [facility] Work Phone: 1([phone] 102-176908-30-2024 Evaluation note* Diagnosis Onset Date Resolution Status [...] GERD (gastroesophageal reflux disease) acute Vomiting acute [facility] Work Phone: 1([phone]) 288-505508-29-2024 History of Present illness Narrative* Maxwell Medrano MD - 04/17/2024 10:15 AM EDT CARDIOLOGY OFFICE VISIT CHIEF COMPLAINT Chief Complaint Patient presents with Hospital Follow-up CARDIOVERSION 03/25/24 HISTORY OF PRESENT ILLNESS HPI 83-year-old female with a past medical history of hypertension, hyperlipidemia. Patient had a long history of atrial fibrillation for which she started seeing [facility] heart constantia since 2020 aftershe was hospitalized in [facility] for bradycardia. Adjustment of her medical [...] therapy. Patient is being evaluated recently at [facility] for ablation therapy for atrial [...] atrial fibrillation for which she started seeing [facility] since 2020 aftershe was hospitalized in [facility] for bradycardia. Adjustment of her medical [...] therapy. Patient is being evaluated recently at [facility] for ablation therapy for atrial [...] had a dual-chamber pacemaker [facility] implanted in June 29, 2021. Patient [...] breath. [facility]. During this admission she was in atrial flutter. Rates were controlled between 60 to 90 bpm. She underwent cardioversion with successful protestant to sinus rhythm for at least a [...] maintaining sinus rhythm during recent admission at [facility] for almost a day and a half [...] to prepare this document. [facility] Work Phone: 1([phone]) 618-585508-29-2024 Instructions* Patient Instructions* Raysa Fermin MA - 04/17/2024 10:15 AM EDT TAKE SOTALOL UINTIL SUNDAY. NO SOTALOL ON SUNDAY AND SUNDAY START AMIODARONE 200 MG ON SUNDAY- TAKE 1 TABLET TWICE DAILY FOR ONE WEEK. THEN TAKE 1 TABLET THEREAFTER. HAVE LABS DONE BEFORE NEXT OFFICE VISIT (NON FASTING) documented [facility] this [facility] Work Phone: 1([phone] Evaluation note* Diagnosis Onset Date Resolution Status [...] June 30, 2024 5:45pm Elevated troponin acute Novem r 2023 5:45pm [facility] Work Phone: [phone] Evaluation note* Diagnosis Onset Date Resolution Status [...] 10, 2024 3:15pm Primary hypertension acute Octo kateryna 2023 3:15pm Stage 3a chronic kidney disease acut e June 10, 2024 3:15pm Acute electrocardiogram changes acut e June 30, 2024 5:45pm Chest pain acute June 30, 2024 5:45pm Chronic heart failure with preserved ejection fraction (HFpEF) acute June 30, 024 5:45pm Elevated troponin acute Novembe r 2023 5:45pm High risk medication use acute June 30, 2024 5:45pm Paroxysmal atrial fibrillation acute June 30, 2024 5:45pm [facility] Work Phone: [phone] History of Present illness Narrative* Maxwell Medrano MD - 02/28/2024 11:15 AM EDT CARDIOLOGY OFFICE VISIT CHIEF COMPLAINT Chief Complaint Patient presents with Follow-up HISTORY OF PRESENT ILLNESS HPI 83-year-old female with a past medical history of hypertension, hyperlipidemia. Patient had a long history of atrial fibrillation for which she started seeing [facility] since 2020 aftershe was hospitalized in [facility] for bradycardia. Adjustment of her medical [...] therapy. Patient is being evaluated recently at [facility] for ablation therapy for atrial [...] be delivered with unsuccessful termination of thisarrhythmia. [place] of atrial fibrillation approximately 76% of the [...] furosemide (LASIX) 20 mg, oral, Daily HYDROcodone-acetaminophen ([place]) 10-325 mg tablet 1 tablet, oral, Daily [...] of Martín Medrano MD. documented in this [facility] Work Phone: 1([phone]) 605-343207-11-2024 Instructions* Patient Instructions* Nesha Wilson LPN - [...] time of your visit. documented in this [facility] Work Phone: [phone]) 481-203407-08-2024 History of Present illness Narrative* Debbie Mac [...] mouth once daily., Disp: , Rfl: HYDROcodone-acetaminophen ([place]) 10-325 mg tablet, Take 1 tablet by [...] Attestation By signing my name below, I, Anju Méndez LPN , Scribe attest that this documentation [...] exam, discussion and plan. documented [facility] Work Phone: 1([phone]) 138-818007-08-2024 Instructions* Patient Instructions* Anju Woods LPN - [...] through Care Everywhere. * Heart Healthy Diet (Iranian) documented in [facility]Day[facility] Work Phone: 1([phone]) 183-828006-04-2024 History of Present illness Narrative* Millie Sneed [...] m (4' 11 ) documented in this [facility] Work Phone: 1([phone]) [phone] Progress note Author Christopher Richardson [facility] January 20, 2024 1:46pm Note Date/Time January 20, 2024 1:46p m [facility] [address] [place] [address] Cardiology Progress Note Signed Patient: Austin Golden MR#: [id number] : 1940 Acct:[id number] Age/Sex: 83 / F Adm Date: 4 Loc: Room: [address] [place] [address] Type: ADM IN Attending Dr: Izzy Capps [...] 01/20/24 12:00 01/20/24 12:00 01/20/24 12:00 01/20/24 12:01/20/24 12:00 HEENT Head: normal to inspection Ears: [...] <Electronically signed by MD Christopher Richardson> 01/20/24 8106 [facility] Work Phone: [phone]) 962-164806-01-2024 Progress note Author Izzy Capps [facility] January 19, 2024 6:48pm Note Date/Time January 19, 2024 5:02p m [facility] [address] [place] [address] Hospitalist Progress Note Signed Patient: Austin Golden MR#: [id number] : 1940 Acct:[id number] Age/Sex: 83 / F Adm Date: 4 Loc: 3T Room: [address] [place] [address] Type: ADM IN Attending Dr: Izzy Capps [...] 1,000 Ml IV 01/17/25 15:29 75 mls/hr .[id number] KWAN Administration Diltiazem HCl 100 mg in [...] Plan Documented By: Izzy Capps MD 01/19/24 940 Signed By: <Electronically signed by Izzy Capps MD> 01/19/24 1848 [facility] Work Phone: [phone] 733-211206-01-2024 Consult note Author Christopher Richardson [facility] January 19, 2024 12:11pm Note Date/Time January 19, 2024 12:08 pm [facility] [address] [place] [address] Cardiology Consult Note Signed Patient: Austin Golden MR#: [id number] : 1940 Acct:[id number] Age/Sex: 83 / F Adm Date: 4 Loc: 3T Room: [address] [place] [address] Type: ADM IN Attending Dr: Izzy Capps [...] and no additional complaints, except as documented [facility] Medical History Chronic heart failure with [...] Social History Comments: independent living at the [facility] Medications and Allergies Allergies Sulfa (Sulfonamide Antibiotics) [...] A 2,500 unit-vit C 100 mg-biotin 2,500 bty-plwl-uffjze capsule (Xqvz-Awgv-Iqpb (vit A,S-jczqxl-Pr-Cu)) 1 cap PO DAILY 01/18/24 [History Confirmed [...] x10E3/uL Lymph # (Auto) 1.0 (1.00-4.8) x10E3/uL [place] # (Auto) 0.8 (0.0-0.8) x10E3/uL Eos # [...] 1000 ,000 ml @ 75 mls/hr IV .[id number] KWAN Rx#:[id number] dilTIAZem 100 MG -*NaCl* 100 mg 100 / 100 In 100 ml @ 5 MG/HR 5 mls/hr IV .Q20H KWAN Rx#:[id number] Oral 200 / 200 Other: # Voids 1 # Unmeasured Voids 1 # Bowel Movements 0 Weight 69.9 kg 69.7 kg Date of Last Bowel Movement 01/18/24 01/18/24 Patient Weight 01/19/24 23:59 Weight 69.7 kg Lab 01/18/24 15:40 PT 16.8 H INR 1.5 APTT 31.3 A&P - Cardiology (1) Atrial fibrillation with RVR: Assessment/Problem Details: Symptomatic. Believe the protestant of maintenance of sinus rhythm is of [...] responseto therapy Documented By: Christopher Richardson MD 1202 Signed By: <Electronically signed by MD Christopher Richardson> 01/19/24 1211 [facility] Work Phone: 1([phone]) 512-344306-01-2024 History and physical note Author Izzy Capps [facility] January 19, 2024 1:25am Note Date/Time January 18, 2024 8:45p m [facility] [address] [place] [address] Hospitalist H&P Signed Patient: Austin Golden MR#: [id number] : 1940 Acct:[id number] Age/Sex: 83 / F Adm Date: 4 Loc: Room: [address] [place] [address] Type: ADM IN Attending Dr: Izzy Capps [...] care Discussed with:?the medical team, the patient [facility] Medical History Chronic heart failure with [...] [facility]lect[facility] Problem List [...] Social History Comments: independent living at the [facility] Medications and Allergies Allergies Sulfa (Sulfonamide Antibiotics) [...] A 2,500 unit-vit C 100 mg-biotin 2,500 rdb-gzcl-hndswq capsule (Ypbf-Vppi-Mmal (vit A,Q-cwssdd-Sa-Cu)) 1 cap PO DAILY 01/18/24 [History Confirmed [...] % (Auto) 9.2 % (.) 01/18/24 15:40 [place] % (Auto) 7.6 % (.) 01/18/24 15:40 Eos % (Auto) 1.2 % (.) 01/18/24 15:40 Baso % (Auto) 0.5 % (.) 01/18/24 15:40 Nucleat RBC Rel Count 0.1 /100 WBC (0-0.5) 01/18/24 15:40 Neut # (Auto) 8.5 x10E3/uL (1.8-7.7) H 01/18/24 15:40 Lymph # (Auto) 1.0 x10E3/uL (1.00-4.8) 01/18/24 15:40 [place] # (Auto) 0.8 x10E3/uL (0.0-0.8) 01/18/24 15:40 [...] signed by Izzy Capps MD> 01/19/24 0125 [facility] Work Phone: 1([phone]) [phone] History of Present illness Narrative* Debbie Mac [...] mouth once daily., Disp: , Rfl: HYDROcodone-acetaminophen ([place]) 10-325 mg tablet, Take 1 tablet by [...] vessel coronary artery disease documented in this [facility] Work Phone: [phone] Instructions* Patient Instructions* Maggy Vee LPN - [...] Maalox also. Pacemaker check documented in this [facility] Work Phone: [phone] History of Present illness Narrative* Debbie Mac [...] mouth once daily., Disp: , Rfl: HYDROcodone-acetaminophen ([place]) 10-325 mg tablet, Take 1 tablet by [...] 11. Dyspnea, unspecified type [facility] Work Phone: [phone] Instructions* Patient Instructions* Maggy Vee LPN - [...] time of your visit. documented [facility] Work Phone: 1([phone]) 594-686608-02-2023 Evaluation note* Encounter Date Diagnosis Assessment Notes [...] are maintaining regular scheduled appts with their side door man. No bleeding complications Mar, Chronic heart failure [...] High risk medication use (ICD-10 - Z79.899) Locationary Other 04-10-2023 Consult note Author Debbie Mac [facility] November 27, 2022 11:58am Note Date/Time November 27, 2022 11: 48am [facility] [address] [place] [address] Cardiology Consult Note Signed Patient: Austin Golden MR#: [id number] : 1940 Acct:[id number] Age/Sex: 82 / F Adm Date: 3 Loc: [place] Room: Type: [facility] Attending Dr: Wilbur Watson DO Copies to: DO Debbie Carias MD Paul C Laffay,DO~ Cardiology HPI History of Present Illness Consult [...] function and a previous stress test in [place] that showed no evidence of myocardial ischemia. [...] Social History Comments: independent living at the [facility] Medications and Allergies Allergies fentanyl Allergy (Verified [...] <Electronically signed by MD Debbie Mac> 11/27/22 1159 [facility] Work Phone: 1([phone]) 542-325104-10-2023 Progress note Author Emmanuel Holland [facility] November 27, 2022 11:10am Note Date/Time November 27, 2022 11: 10am [facility] [address] [place] [address] Anesthesia Progress Note Signed Patient: Austin Golden MR#: [id number] : 1940 Acct:[id number] Age/Sex: 82 / F Adm Date: 3 Loc: [place] Room: Type: [facility] Attending Dr: Wilbur Watson [...] by Emmanuel Holland Jr, MD> 11/27/22 1110 [facility] Work Phone: [phone] Evaluation note* Encounter Date Diagnosis Assessment Notes Treatment Notes Treatment Clinical Notes Oct, Pulmonary nodule (ICD-10 - R91.1) CT chest: no nodules - 10/2022 Locationary Other 03-07-2023 Evaluation note* Encounter Date Diagnosis [...] verbalized understanding and agreement of tx plan. [facility] Cynny Other 02-02-2023 Discharge summary Author Katie Dukes [facility] September 21, 2022 3:33pm Note Date/Time September 21, 2022 3 :17pm [facility] [address] [place] [address] Discharge Summary Signed Patient: Austin Golden MR#: [id number] : 1940 Acct:[id number] Age/Sex: 82 / F Adm Date: 3 Loc: Room: 1C5436-[address]: Katie Dukes DO Copies to: [...] and collapse. The patient was outside of [facility] when she suddenly lost consciousness. Work-up in [...] % (Auto) 68.2, Lymph % (Auto) 18.9, [place] % (Auto) 7.6, Eos % (Auto) 4.6, Baso % (Auto) 0.7, Nucleat RBC Rel Count 0.0, Neut # (Auto) 3.9, Lymph # (Auto) 1.1, [place] # (Auto) 0.4, Eos # (Auto) 0.3, [...] You are scheduled for an EKG at [facility] Office on 09/27/2022 at 1:00pm Instructions: [...] <Electronically signed by Katie Dukes DO> 09/21/22 2102 [facility] Work Phone: 1([phone]) 522-570702-02-2023 Progress note Author Debbie Mac [facility] September 21, 2022 9:48am Note Date/Time September 21, 2022 9 :45am [facility] [address] [place] [address] Cardiology Progress Note Signed Patient: Austin Golden MR#: [id number] : 1940 Acct:[id number] Age/Sex: 82 / F Adm Date: 3 Loc: 4P Room: [address] [place] [address] Type: ADM IN Attending Dr: Katie Dukes [...] % (Auto) 68.2 Lymph % (Auto) 18.9 [place] % (Auto) 7.6 Eos % (Auto) 4.6 Baso % (Auto) 0.7 Nucleat RBC Rel Count 0.0 Neut # (Auto) 3.9 Lymph # (Auto) 1.1 [place] # (Auto) 0.4 Eos # (Auto) 0.3 [...] signed by MD Debbie Mac> 09/21/22 0948 [facility] Work Phone: 1(620) [phone] Progress note Author Katie Dukes [facility] September 20, 2022 3:21pm Note Date/Time September 20, 2022 3 :21pm [facility] [address] [place] [address] Hospitalist Progress Note Signed Patient: Austin Golden MR#: [id number] : 1940 Acct:[id number] Age/Sex: 82 / F Adm Date: 3 Loc: Room: [address] [place] [address] Type: ADM IN Attending Dr: Katie Dukes [...] signed by Katie Dukes DO> 09/20/22 1521 [facility] Work Phone: 1([phone] History of Present illness Narrative* Austin Golden is an 82 y/o female referred by Dr Mac for evaluation of AF. * PMH includes HTN, HLD, HF, SSS s/p PPG implant, CKD, obesity and AF. * Treatment of her AF includes Amiodarone (d/c d for concerns of correction side effects), tikosyn (prolonged OTc), sotalol and DCCV (09/2022). * Symptoms of her AF include fatigue and BRAY. * Pt follows with Dr Stover for management of her AF. Pt has previously been on Amio but was concerned about exterminator termite side effects. She was then put on [...] CONDUCTION @ 109 bpm * Echo 08/2022 ([facility]): LVEF 40%, moderate anteroseptal hypokinesis with wall motion suggestive of conduction abnormality, LA mildly dilated, trace MR & TR * Echo 06/2021: EF 45%, severe anteroseptal hypokinesis, mild-mod DD, LA mildly dilated, mild-mod MR,mild TR, mild-mod pHTN [facility] Work Phone: 1([phone]) 599-660502-01-2023 History of Present illness Narrative* Austin Golden is an 82 y/o female referred by Dr Mac for evaluation of AF. * PMH includes HTN, HLD, HF, SSS s/p PPG implant, CKD, obesity and AF. * Treatment of her AF includes Amiodarone (d/c d for concerns of exterminator termite side effects), tikosyn (prolonged OTc), sotalol and DCCV (09/2022). * Symptoms of her AF include fatigue and BRAY. * Pt follows with Dr Stover for management of her AF. Pt has previously been on Amio but was concerned about exterminator termite side effects. She was then put on [...] CONDUCTION @ 109 bpm * Echo 08/2022 ([facility]): LVEF 40%, moderate anteroseptal hypokinesis with wall motion suggestive of conduction abnormality, LA mildly dilated, trace MR & TR * Echo 06/2021: EF 45%, severe anteroseptal hypokinesis, mild-mod DD, LA mildly dilated, mild-mod MR,mild TR, mild-mod pHTN [facility] [address] [place] Work Phone: 1([phone]) 561-652202-01-2023 Progress note Author Debbie Pandatellykrysten [facility] September 20, 2022 9:04am Note Date/Time September 20, 2022 9 :03am [facility] [address] [place] [address] Cardiology Progress Note Signed Patient: Austin Golden MR#: [id number] : 1940 Acct:[id number] Age/Sex: 82 / F Adm Date: 3 Loc: 4 Room: [address] [place] [address] Type: ADM IN Attending Dr: Katie Dukes [...] % (Auto) 65.4 Lymph % (Auto) 22.6 [place] % (Auto) 6.8 Eos % (Auto) 4.5 Baso % (Auto) 0.7 Nucleat RBC Rel Count 0.2 Neut # (Auto) 3.6 Lymph # (Auto) 1.2 [place] # (Auto) 0.4 Eos # (Auto) 0.2 [...] signed by MD Debbie Mac> 09/20/22 0904 [facility] Work Phone: 1(543) 746-623402-01-2023 Procedure [facility]23 Progress note Author Katie Dkues [facility] September 19, 2022 6:52pm Note Date/Time September 19, 2022 6 :52pm [facility] [address] [place] [address] Hospitalist Progress Note Signed Patient: Austin Golden MR#: [id number] : 1940 Acct:[id number] Age/Sex: 82 / F Adm Date: 3 Loc: Room: 7H2257-5 Type: ADM IN Attending Dr: Katie Dukes [...] signed by Katie Dukes DO> 09/19/22 1852 [facility] Work Phone: 1([phone]) 428-373001-31-2023 Progress note Author Debbie Mac [facility] September 19, 2022 9:57am Note Date/Time September 19, 2022 9 :57am [facility] [address] [place] [address] Cardiology Progress Note Signed Patient: Austin Golden MR#: [id number] : 1940 Acct:[id number] Age/Sex: 82 / F Adm Date: 3 Loc: Room: [address] [place] [address] Type: ADM IN Attending Dr: Katie Dukes [...] % (Auto) 68.4 Lymph % (Auto) 20.4 [place] % (Auto) 6.6 Eos % (Auto) 4.0 Baso % (Auto) 0.6 Nucleat RBC Rel Count 0.1 Neut # (Auto) 4.2 Lymph # (Auto) 1.2 [place] # (Auto) 0.4 Eos # (Auto) 0.2 [...] signed by MD Debbie Mac> 09/19/22 0957 [facility] Work Phone: 1(391) 240-314001-30-2023 Progress note Author Katie Dukes [facility] September 18, 2022 6:04pm Note Date/Time September 18, 2022 6 :04pm [facility] [address] [place] [address] Hospitalist Progress Note Signed Patient: Austin Golden MR#: [id number] : 1940 Acct:[id number] Age/Sex: 82 / F Adm Date: 3 Loc: Room: [address] [place] [address] Type: ADM IN Attending Dr: Katie Dukes [...] 09/18/22 08:36 Spironolactone 12.5 Mg Tablet PO 01/30/24 08:59 12.5 mg DAILY KWAN Administration A&P [...] <Electronically signed by Katie Dukes DO> 09/18/22 2658 [facility] Work Phone: 1([phone]) 285-355401-30-2023 Consult note Author Debbie Mac [facility] September 18, 2022 3:50pm Note Date/Time September 18, 2022 3 :39pm [facility] [address] [place] [address] Cardiology Consult Note Signed Patient: Austin Golden MR#: [id number] : 1940 Acct:[id number] Age/Sex: 82 / F Adm Date: 3 Loc: Room: 3Y2980-6 Type: ADM IN Attending Dr: Katie Dukes [...] test was 2 years ago back in [place] and was negative Review of Systems Review [...] Social History Comments: independent living at the [facility] Medications and Allergies Allergies fentanyl Allergy (Verified [...] <Electronically signed by MD Debbie Mac> 09/18/22 3990 [facility] Work Phone: 1([phone]) [phone] History and physical note Author Jay Ceja [facility] September 17, 2022 5:45pm Note Date/Time September 17, 2022 5 :45pm [facility] [address] [place] [address] Hospitalist H&P Signed Patient: Austin Golden MR#: [id number] : 1940 Acct:[id number] Age/Sex: 82 / F Adm Date: 3 Loc: Room: [address] [place] [address] Type: ADM IN Attending Dr: Jay Ceja DO Copies to: DO Jay Carias, ~ HPI DATE OF EXAMINATION: 09/17/22 CHIEF COMPLAINT: [...] rate at home. Today she was at [facility] and she was standing upwaiting for her [...] except as mentioned elsewhere in the documentation. [facility] Yes Medical History Atrial [...] Social History Comments: independent living at the [facility] Medications and Allergies Allergies fentanyl Allergy (Verified [...] % (Auto) 15.2 % (.) 09/17/22 13:19 [place] % (Auto) 7.1 % (.) 09/17/22 13:19 Eos % (Auto) 3.5 % (.) 09/17/22 13:19 Baso % (Auto) 0.6 % (.) 09/17/22 13:19 Nucleat RBC Rel Count 0.3 /100 WBC (0-0.5) 09/17/22 13:19 Neut # (Auto) 5.9 x10E3/uL (1.8-7.7) 09/17/22 13:19 Lymph # (Auto) 1.2 x10E3/uL (1.00-4.8) 09/17/22 13:19 [place] # (Auto) 0.6 x10E3/uL (0.0-0.8) 09/17/22 13:19 [...] pH 5.5 (5.0-9.0) 09/17/22 13:19 Ur Specific [place] 1.024 (1.001-1.030) 09/17/22 13:19 Urine Protein Trace [...] signed by Jay Ceja DO> 09/17/22 1743 [facility] Work Phone: 1([phone]) [phone] Evaluation note* Encounter Date Diagnosis Assessment Notes Treatment Notes Treatment Clinical Notes Aug, Persistent atrial fibrillation (ICD-10 - I48.19) This patient is in NSR or rate controlled. This patient is anticoagulated to prevent thromboembolic events. They are maintaining regular scheduled appts with their side door man. Aug, Chronic heart failure with preserved ejection [...] use, the patient reduces the risk for [place], CVA, HTN, cardiac dysrhythmias and sudden cardiac [...] supplement, exercise w/ healthy diet. Symptoms tolerable Locationary Other 01-18-2023 Progress note Author Debbie Mac [facility] September 06, 2022 9:57am Note Date/Time September 06, 2022 9 :53am [facility] [address] [place] [address] Cardiology Progress Note Signed Patient: Austin Golden MR#: [id number] : 1940 Acct:[id number] Age/Sex: 81 / F Adm Date: 3 Loc: Room: [address] [place] [address] Type: ADM IN Attending Dr: Anival Easton [...] signed by MD Debbie Mac> 09/06/22 0957 [facility] Work Phone: 1([phone]) 680-707401-17-2023 Progress note Author Anival Easton [facility] September 05, 2022 6:18pm Note Date/Time September 05, 2022 3 :58pm [facility] [address] [place] [address] Hospitalist Progress Note Signed Patient: Austin Golden MR#: [id number] : 1940 Acct:[id number] Age/Sex: 81 / F Adm Date: 3 Loc: 4 Room: 6W8075-2 Type: ADM IN Attending Dr: Anival Easton [...] mg 09/01/22 20:29 Bisacodyl 10 Mg Supp.Rect PA 09/01/23 20:28 DAILY PRN Constipation Docusate Sodium [...] 2. Dysphagia?speech therapy, postrepair paraesophageal hiatal hernia [place] 2016 Attending attestation: Patient was personally seen by me on the day of encounter. I reviewed her history and performed shea elements of exam and formulated the plan of care and confirmed the SECURITY SYSTEMS MANAGER's note above. Plan of care reflects my direct input Documented By: MELY Jacob 3 1558 Signed By: <Electronically signed by MELY Haro> 09/05/22 1722 <Electronically signed by Anival Easton MD> 09/05/22 1818 [facility] Work Phone: 1(679) 325-537201-17-2023 Progress note Author Debbie Mac [facility] September 05, 2022 12:06pm Note Date/Time September 05, 2022 1 2:06pm [facility] [address] [place] [address] Cardiology Progress Note Signed Patient: Austin Golden MR#: [id number] : 1940 Acct:[id number] Age/Sex: 81 / F Adm Date: 3 Loc: Room: [address] [place] [address] Type: ADM IN Attending Dr: Anival Easton [...] % (Auto) 59.1 Lymph % (Auto) 25.6 [place] % (Auto) 9.7 Eos % (Auto) 4.7 Baso % (Auto) 0.9 Nucleat RBC Rel Count 0.2 Neut # (Auto) 3.3 Lymph # (Auto) 1.4 [place] # (Auto) 0.5 Eos # (Auto) 0.3 [...] signed by MD Debbie Mac> 09/05/22 1206 [facility] Work Phone: 1(681) 892-720001-17-2023 Progress note Author Anival Easton [facility] September 05, 2022 8:27am Note Date/Time September 04, 2022 2 :47pm [facility] [address] [place], [place] [address] Hospitalist Progress Note Signed Patient: Austin Golden MR#: [id number] : 1940 Acct:[id number] Age/Sex: 81 / F Adm Date: 3 Loc: Room: [address] [place] [address] Type: ADM IN Attending Dr: Anival Easton [...] mg 09/01/22 20:29 Bisacodyl 10 Mg Supp.Rect PA 09/01/23 20:28 DAILY PRN Constipation Docusate Sodium [...] 2. Dysphagia?speech therapy, postrepair paraesophageal hiatal hernia [place] 2016 Attending attestation: Patient was personally seen by me on the day of encounter. I reviewed her history and performed shea elements of exam and formulated the plan of care and confirmed the nurse practitioner's note above. Documented By: MELY Jacob 3 1446 Signed By: <Electronically signed by MELY Haro> 09/04/221927 <Electronically signed by Anival Easton MD> 09/05/22 0827 [facility] Work Phone: 1(650) 507-518501-16-2023 Progress note Author Jimena Smith [facility] September 04, 2022 11:32am Note Date/Time September 04, 2022 1 1:32am [facility] [address] [place] [address] Cardiology Progress Note Signed Patient: Austin Golden MR#: [id number] : 1940 Acct:[id number] Age/Sex: 81 / F Adm Date: 3 Loc: 4P Room: [address] [place] [address] Type: ADM IN Attending Dr: Anival Easton [...] % (Auto) 64.7 Lymph % (Auto) 22.7 [place] % (Auto) 7.6 Eos % (Auto) 4.3 Baso % (Auto) 0.7 Nucleat RBC Rel Count 0.2 Neut # (Auto) 4.3 Lymph # (Auto) 1.5 [place] # (Auto) 0.5 Eos # (Auto) 0.3 [...] pressure readings Documented By: Jimena Smith MD, [facility] 3 1129 Signed By: <Electronically signed by [facility] Jimena Smith> 09/04/22 1132 [facility] Work Phone: 1(825) 928-150801-15-2023 Progress note Author Jay Ceja [facility] September 03, 2022 1:12pm Note Date/Time September 03, 2022 1 :12pm [facility] [address] [place] [address] Hospitalist Progress Note Signed Patient: Austin Golden MR#: [id number] : 1940 Acct:[id number] Age/Sex: 81 / F Adm Date: 3 Loc: 4 Room: [address] [place] [address] Type: ADM IN Attending Dr: Jay Ceja [...] mg 09/01/22 20:29 Bisacodyl 10 Mg Supp.Rect PA 09/01/23 20:28 DAILY PRN Constipation Bisacodyl 10 [...] problemsafter repair of a paraesophageal hiatal hernia [facility] and 2016. High-resolution CT scan of [...] signed by Jay Ceja DO> 09/03/22 1312 [facility] Work Phone: 1(484) 387-263001-15-2023 Progress note Author Jimena Smith [facility] September 03, 2022 12:24pm Note Date/Time September 03, 2022 1 2:21pm [facility] [address] [place] [address] Cardiology Progress Note Signed Patient: Austin Golden MR#: [id number] : 1940 Acct:[id number] Age/Sex: 81 / F Adm Date: 01/13/2 3 Loc: 4 Room: [id number] Type: ADM IN Attending Dr: Jay Ceja [...] % (Auto) 68.3 Lymph % (Auto) 19.1 [place] % (Auto) 8.2 Eos % (Auto) 3.9 Baso % (Auto) 0.5 Nucleat RBC Rel Count 0.2 Neut # (Auto) 5.0 Lymph # (Auto) 1.4 [place] # (Auto) 0.6 Eos # (Auto) 0.3 [...] add spironolactone Documented By: Jimena Smith MD, [facility] 3 1220 Signed By: <Electronically signed by MD CLAUDIA Smith> 09/03/22 1224 [facility] Work Phone: 1([phone] 973-154401-14-2023 Consult note Author Jimena Smith [facility] September 02, 2022 2:58pm Note Date/Time September 02, 2022 2 :53pm [facility] [address] [place] [address] Cardiology Consult Note Signed Patient: Austin Golden MR#: [id number] : 1940 Acct:[id number] Age/Sex: 81 / F Adm Date: 3 Loc: Room: [address] [place] [address] Type: ADM IN Attending Dr: Jay Ceja DO Copies to: DO Jimena Carias MD, [facility] Jay Ceja, ~ Cardiology HPI [...] Social History Comments: independent living at the [facility] Medications and Allergies Allergies fentanyl Allergy (Verified [...] x10E3/uL Lymph # (Auto) 1.6 (1.00-4.8) x10E3/uL [place] # (Auto) 0.5 (0.0-0.8) x10E3/uL Eos # [...] ml @ 600 mls/hr IV BOLUS ONE Rx#:[id number] Amiodarone 360Mg-*D5w* 360 mg 200 / 200 200 / 400 200 / 400 In 200 ml @ 1 MG/MIN 33.333 mls /hr IV .Q6H KWAN Rx#:[id number] Oral 100 / 100 Other: # Voids [...] (primary) hypertension Documented By: Jimena Smith MD, [facility] 3 4622 Signed By: <Electronically signed by MD CLAUDIA Smith> 09/02/22 0982 [facility] Work Phone: 1([phone] 225-776901-14-2023 Progress note Author Jay Ceja [facility] September 02, 2022 2:42pm Note Date/Time September 02, 2022 1 :43pm [facility] [address] [place] [address] Hospitalist Progress Note Signed Patient: Austin Golden MR#: [id number] : 1940 Acct:[id number] Age/Sex: 81 / F Adm Date: 3 Loc: Room: [address] [place] [address] Type: ADM IN Attending Dr: Jay Ceja [...] mg 09/01/22 20:29 Bisacodyl 10 Mg Supp.Rect PA 09/01/23 20:28 DAILY PRN Constipation Bisacodyl 10 [...] signed by Jay Ceja DO> 09/02/22 1442 [facility] Work Phone: [phone] 131-266601-13-2023 History and physical note Author Jay Ceja [facility] September 01, 2022 8:29pm Note Date/Time September 01, 2022 8 :29pm [facility] [address] [place], [place] [address] Hospitalist H&P Signed Patient: Austin Golden MR#: [id number] : 1940 Acct:[id number] Age/Sex: 81 / F Adm Date: 3 Loc: ER Room: Type: [facility] ER Attending Dr: Copies to: DO Jay Carias DO Scotty J Fulton, ~ HPI DATE OF EXAMINATION: 09/01/22 CHIEF [...] review all of the events in the staff attorney system. None of these are consistent with [...] Social History Comments: independent living at the [facility] Medications and Allergies Allergies [...] wheezing. No focal crackles. Heart: On the staff attorney she has an irregularly irregular rhythm with [...] % (Auto) 13.9 % (.) 09/01/22 12:40 [place] % (Auto) 7.5 % (.) 09/01/22 12:40 Eos % (Auto) 4.1 % (.) 09/01/22 12:40 Baso % (Auto) 0.8 % (.) 09/01/22 12:40 Nucleat RBC Rel Count 0.1 /100 WBC (0-0.5) 09/01/22 12:40 Neut # (Auto) 5.9 x10E3/uL (1.8-7.7) 09/01/22 12:40 Lymph # (Auto) 1.1 x10E3/uL (1.00-4.8) 09/01/22 12:40 [place] # (Auto) 0.6 x10E3/uL (0.0-0.8) 09/01/22 12:40 [...] pH 5.5 (5.0-9.0) 09/01/22 13:32 Ur Specific [place] 1.022 (1.001-1.030) 09/01/22 13:32 Urine Protein 30 mg/dL (Negative) H 09/01/22 13:32 Urine Glucose (UA) Normal mg/dL (Normal) 09/01/22 13:32 Urine Ketones Trace (Negative) H 09/01/22 13:32 Urine Occult Blood Negative (Negative) 09/01/22 13: Urine Nitrite Negative (Negative) 09/01/22 13: Urine Bilirubin Negative (Negative) 09/01/22 13: Urine Urobilinogen Normal mg/dL (Normal) 09/01/22 13:32 Ur Leukocyte Esterase 2+ (Negative) H 09/01/22 13:32 Urine RBC 3-4 /HPF (0-4) 09/01/22 13:32 Urine WBC 5-9 /HPF (0-4) H 09/01/22 13:32 Ur Squamous Epith Cells 5-9 /HPF (0-2) H 09/01/22 13:32 Urine Bacteria None seen (None Seen) 09/01/22 13: Hyaline Casts 0-8 /LPF (0-8) 09/01/22 13:32 [...] <Electronically signed by Jay Ceja DO> 09/01/222028 [facility] Work Phone: [phone]) 455-877509-08-2022 Evaluation note* Encounter Date Diagnosis Assessment Notes Treatment Notes Treatment Clinical Notes Apr, Cirrhosis (ICD-10 - K74.60) Apr, Vomiting (ICD-10 - R11.10) THIS IS 10 MINS ATER EATING AND UNDIGESTED FOODS. 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 PATIENT DID HAVE A MODIFIEDBARIUM SWALLOWNort [employer] Other 11-15-2021 Note [id number]#1.00CD:[address] [place] [address] 06-23-2021 [id number]:09[facility] [place] [facility] [place] [address] [place] Work Phone: 1(191) 248-168011-04-2021 [id number] ECG Post Procedure [facility] [address] [place] Work Phone: 1(215) 312-184011-04-2021 [id number]-[id number]:09[facility] [place] Post Procedure [facility] [address] [place] Work Phone: [phone] 266-537411-02-2021 NoteFR COVID-19 [facility] [place] Range:Negative Comments:Testing for SARS-CoV-2 by RT-PCR This test was developed and its performance characteristics determined by [employer] (BD) and validated at the [facility]. This test has not been [...] the authorization is terminated or revoked sooner.PERFORMED BY:[place] [address] [place], [place] [id number] MEDICAL DIRECTORVITOR ZARATE M.D. [address] Work Phone: Comment on above:Testing for SARS-CoV-2 by RT-PCR This test was developed and its performance characteristics determined by [employer] (BD) and validated at the [facility]. This test has not been [...] the authorization is terminated or revoked sooner.PERFORMED BY:[place] [address] [place] [place] [id number] MEDICAL DIRECTORVITOR ZARATE M.D. 06-21-2021 NoteFR COVID-19 [facility] (Normal)Range:Negative Comments:Testing for SARS-CoV-2 by RT-PCR This test was developed and its performance characteristics determined by [employer] (BD) and validated at the [facility]. This test has not been [...] the authorization is terminated or revoked sooner.PERFORMED BY:[place] [address] [place] [place] [phone] MEDICAL DIRECTORVITOR ZARATE M.D. [address] Work Phone: Comment on above:Testing for SARS-CoV-2 by RT-PCR This test was developed and its performance characteristics determined by [employer] (BD) and validated at the [facility]. This test has not been [...] the authorization is terminated or revoked sooner.PERFORMED BY:[place] [address] [place] [place] [id number] MEDICAL DIRECTORVITOR ZARATE M.D. 06-21-2021 NoteFR COVID-19 FRNegative (Normal)Range:Negative Comments:Testing for SARS-CoV-2 by RT-PCR This test was developed and its performance characteristics determined by [employer] (BD) and validated at the [facility]. This test has not been [...] the authorization is terminated or revoked sooner.PERFORMED BY:[place] [address] ALEXJovaniMelitaTRI [place] [id number] MEDICAL DIRECTORVITOR ZARATE M.D. [address] Work Phone: Comment on above:Testing for SARS-CoV-2 by RT-PCR This test was developed and its performance characteristics determined by [employer] (BD) and validated at the [facility]. This test has not been [...] the authorization is terminated or revoked sooner.PERFORMED BY:[place] [address] [place], [place] [id number] MEDICAL DIRECTORVITOR ZARATE M.D. 06-21-2021 NoteFR COVID-19 [facility]MCNegative (Normal)Range:Negative Comments:Testing for SARS-CoV-2 by RT-PCR This test was developed and its performance characteristics determined by [employer]) and validated at the [facility]. This test has not been [...] the authorization is terminated or revoked sooner.PERFORMED BY:[place] [address] [place] [phone] MEDICAL DIRECTORVITOR ZARATE M.D. [address] Work Phone: Comment on above:Testing for SARS-CoV-2 by RT-PCR This test was developed and its performance characteristics determined by [employer] (BD) and validated at the [facility]. This test has not been [...] the authorization is terminated or revoked sooner.PERFORMED BY:[place] [address] [place], [place] [phone] MEDICAL DIRECTORVITOR ZARATE M.D. 06-21-2021 NoteFR COVID-19 [facility]Negative (Normal)Range:Negative Comments:Testing for SARS-CoV-2 by RT-PCR This test was developed and its performance characteristics determined by [employer] (BD) and validated at the [facility]. This test has not been [...] the authorization is terminated or revoked sooner.PERFORMED BY:[facility] [place] [place] [phone] MEDICAL DIRECTORVITOR ZARATE M.D. [facility] [place] Work Phone: Comment on above:Testing for SARS-CoV-2 by RT-PCR This test was developed and its performance characteristics determined by [employer] (BD) and validated at the [facility]. This test has not been [...] the authorization is terminated or revoked sooner.PERFORMED BY:[place] [address] YOST [id number] MEDICAL DIRECTORVITOR ZARATE M.D. 06-21-2021 NoteFR COVID-19 [facility]MCNegative (Normal)Range:Negative Comments:Testing for SARS-CoV-2 by RT-PCR This test was developed and its performance characteristics determined by [employer] (BD) and validated at the [facility]. This test has not been [...] the authorization is terminated or revoked sooner.PERFORMED BY:[place] [address] [place] [place] [phone] MEDICAL DIRECTORVITOR ZARATE M.D. [place] [address] [place] Work Phone: Comment on above:Testing for SARS-CoV-2 by RT-PCR This test was developed and its performance characteristics determined by [employer] (BD) and validated at the [facility]. This test has not been [...] the authorization is terminated or revoked sooner.PERFORMED BY:[place] [address] [place] [phone] MEDICAL DIRECTORVITOR ZARATE M.D. 06-21-2021 NoteFR COVID-19 [facility]MCNegative (Normal)Range:Negative Comments:Testing for SARS-CoV-2 by RT-PCR This test was developed and its performance characteristics determined by [employer] (BD) and validated at the [facility]. This test has not been [...] the authorization is terminated or revoked sooner.PERFORMED BY:[place] [address] [place], [place] [phone] MEDICAL DIRECTORVITOR ZARATE M.D. -[facility] [address] DO Work Phone: Comment on above:Testing for SARS-CoV-2 by RT-PCR This test was developed and its performance characteristics determined by [employer]) and validated at the [facility]. This test has not been [...] the authorization is terminated or revoked sooner.PERFORMED BY:[place] [address] [place], [place] [phone] MEDICAL DIRECTORVITOR ZARATE M.D. Chief complaint Narrative - ReportedJUDI ZANDER is being seen for a cardiovascular evaluation of atrial fibrillation.XH-Ltxjqbqutq-Gilcvu Work Phone: Chief complaint Narrative - ReportedJUDI GOLDEN is being seen for a cardiovascular evaluation of atrial fibrillation. JR-Tdrczzocua-FEO [address] [place] Work Phone: Consult note Author Jimena Smith [facility] September 02, 2022 2:58pm Note Date/Time September 02, 2022 2 :53pm [facility] [address] [place], [place] [address] Cardiology Consult Note Signed Patient: Austin Golden MR#: [id number] : 1940 Acct:[id number] Age/Sex: 81 / F Adm Date: 3 Loc: Room: [address] [place] [address] Type: ADM IN Attending Dr: Jay Ceja DO Copies to: DO Jimena Carias MD, FACC Jay Ceja, ~ Cardiology HPI History of [...] Social History Comments: independent living at the [facility] Medications and Allergies Allergies fentanyl Allergy (Verified [...] x10E3/uL Lymph # (Auto) 1.6 (1.00-4.8) x10E3/uL [place] # (Auto) 0.5 (0.0-0.8) x10E3/uL Eos # [...] ml @ 600 mls/hr IV BOLUS ONE Rx#:[id number] Amiodarone 360Mg-*D5w* 360 mg 200 / 200 200 / 400 200 / 400 In 200 ml @ 1 MG/MIN 33.333 mls /hr IV .Q6H KWAN Rx#:[id number] Oral 100 / 100 Other: # Voids [...] (primary) hypertension Documented By: Jimena Smith MD, [facility] 3 1452 Signed By: <Electronically signed by MD CLAUDIA Smith> 09/02/22 2939 [facility] Work Phone: Consult note Author Javed Dee [facility] Note Date/Time July 01, 2024 11:50am [facility] [address] [place] [address] Cardiology Consult Note Signed Patient: Austin Golden MR#: [id number] : 1940 Acct:[id number] Age/Sex: 83 / F Adm Date: 4 Loc: 3T Room: [address] [place] [address] Type: ADM IN Attending Dr: Shilpa Fenton [...] exertional dyspnea. She declines chest discomfort to la. Troponins are mildly elevated, initially at 101 and 85, and currently 92 (notably, she has chronic troponin elevation upon review of her EMR). Renal function is normal. Patient had recent heart catheterization performed earlier this year [facility] revealing mild coronary disease and [...] amiodarone to 400 daily, and repeat cardioversion [facility] Medical History (Updated 07/01/24 @ 11:49 by [...] [facility]. [facility] Problem List clean-up per request of Phys. [facility] History of cardiac pacemaker in situ Presbyesophagus Hiatal hernia Restless leg Hyperlipemia Problem List clean-up per request of Phys. EHR Cmte CHF (congestive heart failure) Problem List clean-up per request of Phys. [facility] Kidney stones removal of kidney stone R flank in 2021 Problem List clean-up per request of Phys. EHR Cmte Pacemaker Problem List clean-up per request of Phys. EHR Cmte Atrial fibrillation, persistent Problem List clean-up per request of Phys. [facility] COVID-19 2019 Problem List clean-up per request of Phys. EHR Cmte Atrial fibrillation with RVR Problem List clean-up per request of Phys. EHR Cmte Hernia of abdominal wall Problem List clean-up per request of Phys. [facility] Surgical History History of repair [...] Social History Comments: independent living at the [facility] Medications and Allergies Allergies No Known Allergies [...] Lymph # (Auto) 1.4 1.4 (1.00-4.8) x10E3/uL [place] # (Auto) 0.6 0.5 (0.0-0.8) x10E3/uL Eos [...] risk medication use: Code(s): Z79.899 - Other correction (current) drug therapy (3) Chronic heart failure [...] signed by Javed Dee DO> 07/01/24 1150 [facility] Work Phone: Discharge summary Author Izzy Capps [facility] January 20, 2024 3:42pm Note Date/Time January 20, 2024 2:55p m [facility] [address] [place] [address] Discharge Summary Signed Patient: Austin Golden MR#: [id number] : 1940 Acct:[id number] Age/Sex: 83 / F Adm Date: 4 Loc: Room: [address] [place] [address]: Izzy Capps MD Copies to: [...] 1 mg tablet 1 mg PO QHS Pool-Guxv-Jlxl(vit A,C-biotin) 2,500 unit-100 mg-2,500 mcg capsule 1 [...] 30 Days Qty: 60 12RF Follow Up: [facility], [facility] [Provider Group] (Call office on Sunday to schedule follow-up with [facility]. ) Jazmin العلي DO [Primary Care [...] <Electronically signed by Izzy Capps MD> 01/20/24 154 [facility] Work Phone: [place] [address] Discharge Summary Signed Patient: Austin Golden MR#: [id number] : 1940 Acct:[id number] Age/Sex: 83 / F Adm Date: 4 Loc: Room: [address] [place] [address]: Shilpa Fenton MD Copies to: DO Shilpa Carias MD~ Providers Date of Discharge: 07/03/24 Discharging Provider: Shilpa Fenton Primary Care Provider: Jazmin العلي Consults: 06/30/24 17:45 Consult to Cardiology Routine Comment: Consulting Provider: [employer], [facility] Reason For Exam: cp Has Provider Been [...] diastolic congestive heart failure, compensated Non-ST elevation [place] type II Summary Hospital Course Hospital course: [...] denies any shortness of breath she was pawndhnqvn79% on room air at rest. Denies any [...] Laboratory work up and Imaging studies reviewed desktop support consultant - reviewed, after electrical cardioversion remained paced [...] tablet 200 mg PO DAILY Follow Up: Dbebie Mac MD [Active Staff] - 07/25/24 10:00 [...] % (Auto) 80.9, Lymph % (Auto) 10.9, [place] % (Auto) 5.6, Eos % (Auto) 2.3, Baso % (Auto) 0.3, Nucleat RBC Rel Count 0.1, Neut # (Auto) 7.9 H, Lymph # (Auto) 1.1, [place] # (Auto) 0.5, Eos # (Auto) 0.2, Baso # (Auto) 0.0, PHA Creatinine Clear 36.26, Sodium 139, Potassium 3.6, Chloride 106, Carbon Dioxide 25.5, Anion Gap 11.1, BUN 23, Creatinine 1.07, Est GFR (CKD-EPI) 52.185, [id number] H, Calcium 8.3 L Documented By: Shilpa Fenton MD 07/03/248 Signed By: 07/03/24 1651 [facility] Shilpa Fenton [facility] Note Date/Time July 03, 2024 4:51pm [facility] [address] [place] [address] Discharge Summary Signed Patient: Austin Golden MR#: [id number] : 1940 Acct:[id number] Age/Sex: 83 / F Adm Date: 4 Loc: Room: [address] [place] [address]: Shilpa Fenton MD Copies to: DO Shilpa Carias MD~ Providers Date of Discharge: 07/03/24 Discharging Provider: Shilpa Fenton Primary Care Provider: Jazmin العلي Consults: 06/30/24 17:45 Consult to Cardiology Routine Comment: Consulting Provider: [facility] Reason For Exam: cp Has Provider [...] diastolic congestive heart failure, compensated Non-ST elevation [place] type II Summary Hospital Course Hospital course: [...] Laboratory work up and Imaging studies reviewed desktop support consultant - reviewed, after electrical cardioversion remained paced [...] % (Auto) 80.9, Lymph % (Auto) 10.9, [place] % (Auto) 5.6, Eos % (Auto) 2.3, Baso % (Auto) 0.3, Nucleat RBC Rel Count 0.1, Neut # (Auto) 7.9 H, Lymph # (Auto) 1.1, [place] # (Auto) 0.5, Eos # (Auto) 0.2, Baso # (Auto) 0.0, PHA Creatinine Clear 36.26, Sodium 139, Potassium 3.6, Chloride 106, Carbon Dioxide 25.5, Anion Gap 11.1, BUN 23, Creatinine 1.07, Est GFR (CKD-EPI) 52.185, [id number] H, Calcium 8.3 L Documented By: Shilpa Fenton MD 07/03/24 1648 Signed By: <Electronically signed by Shilpa Fenton MD> 07/03/24 1651 [facility] Work Phone: evaluation noteNo assessment information available [facility] Work Phone: Evaluation noteNo InformationNort [employer] Other Evaluation note* Diagnosis Onset Date Resolution Status Atrial fibrillation with rapid ventricular response acute CHF (congestive heart failure) acute Dysphagia acute Dyspnea on exertion acute Hypertension acute Sick sinus syndrome acute Ventricular tachycardia acut e Weakness acute [facility] Work Phone: Evaluation note* Diagnosis Onset Date Resolution Status Atrial fibrillation with rapid ventricular response acute CHF (congestive heart failure) acute Dysphagia acute Dyspnea on exertion acute HTN (hypertension), benign a cute Hypertension acute Left ventricular systolic dysfunction, NYHA class 2 acute Sick sinus syndrome acute Ventricular tachycardia acut e Weakness acute [facility] Work Phone: Evaluation note* Diagnosis Onset Date Resolution Status Atrial fibrillation with rapid ventricular response acute CHF (congestive heart failure) acute Dysphagia acute Dyspnea on exertion acute HTN (hypertension), benign a cute Hypertension acute Left ventricular systolic dysfunction, NYHA class 2 acute Sick sinus syndrome acute Ventricular tachycardia acut e Weakness acute Atrial fibrillation with rapid ventricular response acute Syncope acute [facility] Work Phone: Evaluation note* Diagnosis [...] dysfunction, NYHA class 2 acute Syncope acute [facility] Work Phone: Evaluation note* Diagnosis [...] acute Syncope acute Atrial fibrillation, persistent acute [facility] Work Phone: Evaluation note* Diagnosis Onset Date Resolution Status Anticoagulated acute Atrial fibrillation with rapid ventricular response acute Dyspnea on exertion acute Hypertension acute Left ventricular systolic dysfunction, NYHA class 2 acute Syncope acute Atrial fibrillation, persistent acute [facility] Work Phone: Evaluation note* Diagnosis [...] Dyspnea, unspecified type documented in this encounter [facility] Work Phone: Evaluation note* Diagnosis Chronic diastolic heart failure (CMS/HCC) Chronic diastolic heart failure Essential hypertension, benign Dyspnea, unspecified type documented in this encounter [facility] Work Phone: Evaluation note* Diagnosis Chronic diastolic heart failure (CMS/HCC) Chronic diastolic heart failure Essential hypertension, benign Dyspnea, unspecified type documented in this encounter [facility] Work Phone: Evaluation note* Diagnosis Persistent atrial fibrillation (CMS/HCC)- Primary Atrial fibrillation 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) Chronic diastolic heart failure ([facility]/HCC) Chronic diastolic heart failure Essential hypertension, benign Mixed hyperlipidemia Pacemaker Cardiac pacemaker in situ Sinus bradycardia Other specified cardiac dysrhythmias Single vessel coronary artery disease Coronary atherosclerosis of unspecified type of vessel, jena or graft documented in this encounter [facility] Work Phone: Evaluation note* Diagnosis Onset Date Resolution Status 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) acute Hypercholesterolemia acute Lumbar spondylosis acute Obstructive sleep apnea acut e Paroxysmal atrial fibrillation acute Primary hypertension acute Stage 3a chronic kidney disease acute [facility] Work Phone: Evaluation note* Diagnosis [...] acute Stage 3a chronic kidney disease acute [facility] Work Phone: Evaluation note* Diagnosis [...] hernia noneacti ve Nausea & vomiting noneactive [facility] Work Phone: Evaluation note* Diagnosis [...] acute Hx of hiatal hernia noneacti ve [facility] Work Phone: Evaluation note* Diagnosis [...] acute Stage 3a chronic kidney disease acute [facility] Work Phone: Evaluation note* Diagnosis [...] GERD (gastroesophageal reflux disease) acute Vomiting acute [facility] Work Phone: Evaluation note* Diagnosis Esophageal [...] smoked any substance documented in this encounter [facility] Work Phone: Evaluation note* Diagnosis Esophageal [...] use of anticoagulants documented in this encounter [facility] Work Phone: Evaluation note* Diagnosis NO SHOW- Primary [facility] Diagnosis Atrial flutter, unspecified type (Multi)- Primary Persistent atrial fibrillation (Multi) Atrial fibrillation High risk medication use Anticoagulated Encounter for long-term (current) use of anticoagulants Chronic diastolic heart failure (Multi) Chronic diastolic heart failure Single vessel coronary artery disease Coronary atherosclerosis of unspecified type of vessel, jena or graft 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 (Multi) Pacemaker Cardiac pacemaker in situ Essential hypertension, benign Mixed hyperlipidemia Gallstones Calculus of gallbladder without mention of cholecystitis or obstruction Stage 3a chronic kidney disease (Multi) Shortness of breath BMI 30.0-30.9,adult documented in this encounter [facility] Work Phone: Evaluation note* Diagnosis High risk medication use- Primary Diastolic heart failure, unspecified HF chronicity (Multi) Abnormal EKG Nonspecific abnormal electrocardiogram (ECG) (EKG) Anticoagulation management encounter Encounter for therapeutic drug monitoring Longstanding persistent atrial fibrillation (Multi) Sinus bradycardia Other specified cardiac dysrhythmias Pacemaker Cardiac pacemaker in situ BMI 30.0-30.9,adult Never smoked tobacco documented in this encounter [facility] Work Phone: Evaluation note* Diagnosis High risk medication use- Primary Pacemaker Cardiac pacemaker in situ Anticoagulation management encounter Encounter for therapeutic drug monitoring Longstanding persistent atrial fibrillation (Multi) Sinus bradycardia Other specified cardiac dysrhythmias BMI 28.0-28.9,adult Never smoked any substance documented in this encounter [facility] Work Phone: Evaluation note* Diagnosis Atrial flutter, unspecified type (Multi)- Primary Essential hypertension, benign Chronic diastolic heart failure (Multi) Chronic diastolic heart failure Mixed hyperlipidemia Sinus bradycardia Other specified cardiac dysrhythmias Single vessel coronary artery disease Coronary atherosclerosis of unspecified type of vessel, jena or graft Anticoagulated Encounter for long-term (current) use of anticoagulants Shortness of breath Never smoked any substance BMI 28.0-28.9,adult documented in this encounter [facility] Work Phone: Evaluation note* Diagnosis Pacemaker- Primary Cardiac pacemaker in situ Persistent atrial fibrillation (Multi) Atrial fibrillation Essential hypertension, benign Diastolic heart failure, unspecified HF chronicity (Multi) High risk medication use BMI 28.0-28.9,adult 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 (Multi) Sinus bradycardia Other specified cardiac dysrhythmias Never smoked any substance documented in this encounter [facility] Work Phone: Evaluation note* Diagnosis Esophageal dysphagia- Primary Dysphagia, pharyngoesophageal phase [facility] Diagnosis Persistent atrial fibrillation (Multi)- Primary Atrial fibrillation Atrial flutter, unspecified type (Multi) High risk medication use Single vessel coronary artery disease Coronary atherosclerosis of unspecified type of vessel, jena or graft 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 (Multi) Pacemaker Cardiac pacemaker in situ Mixed hyperlipidemia Essential hypertension, benign Chronic diastolic heart failure Anticoagulated Encounter for long-term (current) use of anticoagulants BMI 28.0-28.9,adult Stage 3a chronic kidney disease (Multi) Shortness of breath Never smoked any substance documented in this encounter [facility] Work Phone: Evaluation note* Diagnosis Pacemaker Cardiac pacemaker in situ Sick sinus syndrome (Multi) Sinoatrial node dysfunction documented in this encounter [facility] Work Phone: Evaluation note* Diagnosis Pacemaker Cardiac pacemaker in situ Sick sinus syndrome (Multi) Sinoatrial node dysfunction Persistent atrial fibrillation (Multi) Atrial fibrillation High risk medication use 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 (Multi) Essential hypertension, benign Chronic diastolic heart failure BMI 27.0-27.9,adult Never smoked tobacco documented in this encounter [facility] Work Phone: Evaluation note* Diagnosis Esophageal [...] pacemaker in situ documented in this encounter [facility] Work Phone: Evaluation note* Diagnosis Acquired deformity of left toe- Primary Acquired deformity of right toe Pain due to onychomycosis of toenails of both feet [facility] Diagnosis High risk medication use- Primary Essential hypertension, benign Pacemaker Cardiac pacemaker in situ Persistent atrial fibrillation (Multi) Atrial fibrillation Anticoagulated Encounter for long-term (current) use of anticoagulants Shortness of breath documented in this encounter [facility] Work Phone: Evaluation note* Diagnosis Cellulitis of left foot- Primary Pain due to onychomycosis of toenails of both feet Acquired deformity of left toe Acquired deformity of right toe Foot ulcer, left, with fat layer exposed (HCC) documented [facility]* Diagnosis Persistent atrial fibrillation (Multi)- Primary Atrial fibrillation Pre-op testing Unspecified pre-operative examination Persistent atrial fibrillation (Multi) Atrial fibrillation documented in this encounter [facility] Work Phone: Evaluation note* Diagnosis Cellulitis of left foot- Primary Acquired deformity of left toe Acquired deformity of right toe Exostosis of left foot documented in this encounter [facility]* Diagnosis Onset Date Resolution Status Admit Date Acute hypoxic respiratory failure [place] May 18, 2025 11:58am Acute on chronic [...] 18, 2025 11:58am Chronic kidney disease inactive [id number] 11:58am Hypercholesterolemia inactive Apr 11:58am [facility] Work Phone: Evaluation note* Diagnosis Persistent atrial fibrillation (Multi)- Primary Atrial fibrillation Pacemaker Cardiac pacemaker in situ Sick sinus syndrome (Multi) Sinoatrial node dysfunction Persistent atrial fibrillation (Multi) Atrial fibrillation documented in this encounter [facility] Work Phone: Evaluation note* Diagnosis Persistent atrial fibrillation (Multi)- Primary Atrial fibrillation Persistent atrial fibrillation (Multi)- Primary Atrial fibrillation Single vessel coronary artery disease Coronary atherosclerosis of unspecified type of vessel, jena or graft High risk medication use Sinus bradycardia Other specified cardiac dysrhythmias 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 (Multi) Pacemaker Cardiac pacemaker in situ Mixed hyperlipidemia Essential hypertension, benign Chronic diastolic heart failure (Multi) Chronic diastolic heart failure Atrial flutter, unspecified type (Multi) Anticoagulated Encounter for long-term (current) use of anticoagulants BMI 28.0-28.9,adult Shortness of breath Never smoked any substance Persistent atrial fibrillation (Multi) Atrial fibrillation documented in this encounter [facility] Work Phone: Evaluation note* Diagnosis Persistent atrial fibrillation (Multi)- Primary Atrial fibrillation documented in this encounter [facility] Work Phone: History and physical note Author Ángel Minaya [facility] Note Date/Time January 22, 2025 11:17 pm [facility] [address] [place] [address] Hospitalist H&P Signed Patient: Austin Golden MR#: [id number] : 1940 Acct:[id number] Age/Sex: 84 / F Adm Date: 5 Loc: ER Room: Type: [facility] ER Attending Dr: Copies to: MD Jazmin Connor DO Thomas D Kramer Jr, MD~ HPI DATE OF EXAMINATION: 01/22/25 CHIEF COMPLAINT: Shortness of breath HISTORY OF PRESENT ILLNESS: This is a 84-year-old female with significant past medical history of atrial fibrillation, CKD, coronary artery disease, anxiety, GERD, pulmonary hypertension, STONEY, hyperlipidemia, depression, hypertension, presented to [facility] ED with chief complaints of worsening [...] negative unless noted below or in HPI [facility] Medical History (Updated 01/22/25 @ 23:17 by [...] Social History Comments: independent living at the [facility] Medications and Allergies Allergies No Known Allergies [...] 01/22/25 20: RDW 14.4 % (11.9-15.3) 01/22/25 20:54 Plt Count 240 x10E3/uL (150-450) 01/22/25 20: MPV 8.6 fl (6.3-10.7) 01/22/25 20: Neut % (Auto) 70.7 % (.) 01/22/25 20:54 Lymph % (Auto) 17.7 % (.) 01/22/25 20: [place] % (Auto) 7.9 % (.) 01/22/25: Eos % (Auto) 2.5 % (.) 01/22/25: Baso % (Auto) 1.2 % (.) 01/22/25: Nucleat RBC Rel Count 0.2 /100 WBC (0-0.5) 01/22/25: Neut # (Auto) 5.5 x10E3/uL (1.8-7.7) 01/22/25 20: Lymph # (Auto) 1.4 x10E3/uL (1.00-4.8) 01/22/25 20: [place] # (Auto) 0.6 x10E3/uL (0.0-0.8) 01/22/25 20: Eos # (Auto) 0.2 x10E3/uL (0.0-0.45) 01/22/25: Baso # (Auto) 0.1 x10E3/uL (0.0-0.2) 01/22/25: Monocyte Dist Width 20.85 % (0.00-20.00) H 01/22/25 20: PT 13.9 Seconds (9.0-12.9) H 01/22/25 20: INR 1.2 01/22/25: APTT 32.2 Seconds (25.1-36.5) 01/22/25 20:54 PHA Creatinine Clear 30.77 01/22/25 20: Sodium 139 mmol/L (136-145) 06/05/25 20:54 Potassium 3.9 mmol/L (3.5-5.1) 01/22/25 20:54 [...] hypertension, STONEY, hyperlipidemia, depression, hypertension, presented to [facility] ED with chief complaints of worsening [...] days): 4 Documented By: Ángel Minaya MD 01/22/250 Signed By: <Electronically signed by Ángel Minaya MD> 01/22/25 2315 [facility] Work Phone: History general Narrative - [...] no history of trauma and substance abuse Locationary Other History general Narrative - Reported* Type [...] and substance abuse Hospitalization History SEE SURGICAL Locationary Other History general Narrative - Reported* Type [...] substance abuse Hospitalization History SEE SURGICAL HX Locationary Other History of Present illness Narrative* Patient [...] testing * 6. 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 Mota. She reports she underwent esophageal [...] exercise and try to lose some weight [facility] 250 DO Work Phone: History of Present [...] reviewed her pacemaker check with her -[facility] DO Work Phone: History of Present illness [...] advised her to restrict her salt intake [facility] Work Phone: History of Present illness [...] advised her to restrict her salt intake [facility] Work Phone: History of Present illness [...] advised her to restrict her salt intake [facility] Work Phone: History of Present illness [...] by mouth Daily, Disp: , Rfl: HYDROcodone-acetaminophen ([place]) 10-325 MG tablet, 1 tablet, Disp: , [...] Resource Strain: Low Risk (03/21/2024) Received from [facility] Overall Financial Resource Strain (CARDIA) Difficulty of Paying Living Expenses: Not hard at all Food Insecurity: Not on file Transportation Needs: No Transportation Needs (03/24/2024) Received from [facility] PRAPARE - Transportation Lack of Transportation (Medical): No Lack of Transportation (Non-Medical): No Physical Activity: Not on file Stress: Not on file Social Connections: Not on file Intimate Partner Violence: Unknown (02/14/2024) Received from [facility] Safety & Environment Fear of Current or Ex-Partner: Not on file Emotionally Abused: Not on file Physically Abused: Not on file Sexually Abused: Not on file Physically or Sexually Abused: Not on file Housing Stability: Low Risk (03/21/2024) Received from [facility] Housing Stability Vital Sign Unable to [...] Podiatry Joseph Sepulveda DPM [facility] Additional Instructions Speech therapy recommendations: *Take pills whole with water *Sit upright at 90 degrees during all oral intake *Sit upright for 30 minutes after meals and snacks Dietitian recommendations: *Boost plus, 1 container, [facility] Work Phone: Hospital Discharge instructions Additional Instructions You are scheduled for an EKG at /[facility] Office on 09/27/2022 at 1:00pm [facility] Work Phone: Progress note Author Jay Ceja [facility] September 02, 2022 2:42pm Note Date/Time September 02, 2022 1 :43pm [facility] [address] [place] [address] Hospitalist Progress Note Signed Patient: Austin Golden MR#: [id number] : 1940 Acct:[id number] Age/Sex: 81 / F Adm Date: 3 Loc: Room: [address] [place] [address] Type: ADM IN Attending Dr: Jay Ceja [...] mg 09/01/22 20:29 Bisacodyl 10 Mg Supp.Rect PA 09/01/23 20:28 DAILY PRN Constipation Bisacodyl 10 [...] <Electronically signed by Jay Ceja DO> 09/02/22 1448 [facility] Work Phone: Progress note Author Shilpa Fenton [facility] Note Date/Time July 01, 2024 3:17pm [facility] [address] [place] [address] Hospitalist Progress Note Signed Patient: Austin Golden MR#: [id number] : 1940 Acct:[id number] Age/Sex: 83 / F Adm Date: 4 Loc: Room: [address] [place] [address] Type: ADM IN Attending Dr: Shilpa Fenton [...] Laboratory work up and Imaging studies reviewed desktop support consultant - reviewed, remains in atrial fibrillation but [...] <Electronically signed by Shilpa Fenton MD> 07/01/24 0585 [facility] Work Phone: Progress note Author Shilpa Fenton [facility] Note Date/Time July 02, 2024 1:06pm [facility] [address] [place] [address] Hospitalist Progress Note Signed Patient: Austin Golden MR#: [id number] : 1940 Acct:[id number] Age/Sex: 83 / F Adm Date: 4 Loc: Room: [address] [place] [address] Type: ADM IN Attending Dr: Shilpa Fenton [...] Laboratory work up and Imaging studies reviewed desktop support consultant - reviewed, remains in atrial fibrillation but [...] signed by Shilpa Fenton MD> 07/02/24 1306 [facility] Work Phone: Progress note Author W Kwasi Dee [facility] Note Date/Time July 02, 2024 3:59pm [facility] [address] [place] [address] Cardiology Progress Note Signed Patient: Austin Golden MR#: [id number] : 1940 Acct:[id number] Age/Sex: 83 / F Adm Date: 4 Loc: 3T Room: 4W5536-2 Type: ADM IN Attending Dr: Shilpa Fenton [...] catheterization performed earlier this year at [facility] revealing mild coronary disease and [...] % (Auto) 72.9 Lymph % (Auto) 19.1 [place] % (Auto) 4.8 Eos % (Auto) 1.9 Baso % (Auto) 1.3 Nucleat RBC Rel Count 0.2 Neut # (Auto) 6.7 Lymph # (Auto) 1.7 [place] # (Auto) 0.4 Eos # (Auto) 0.2 [...] risk medication use: Code(s): Z79.899 - Other correction (current) drug therapy (3) Chronic heart failure [...] By: <Electronically signed by Javed Dee DO> 07/02/241558 [facility] Work Phone: Reason for referral (narrative)* Consultation (Routine) - Authorized Specialty Diagnoses / Procedures Referred By Ashtyn dobson Referred To Contact Cardiology Diagnoses 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) Pacemaker Sinus bradycardia Debbie Mac MD [address] [facility], [address] [address] Referral ID Status Reason Start Date Expiration Date Visits Requested Visits Authorized [id number] Authorized Specialty Services Required 09/19/2023 09/18/2024 1 1 * Cardiovascular (Routine) - Authorized Specialty Diagnoses / Procedures Referred By Ashtyn t Referred To Contact Diagnoses Persistent atrial fibrillation (CMS/HCC) Procedures ECG 12 Lead Debbie Mac MD [address] [facility], [address] [place] [address] Referral ID Status Reason Start Date Expiration Date V isits Requested Visits Authorized [id number] Authorized 09/19/2023 09/18/2024 1 1 * Consultation (Routine) - Authorized Specialty Diagnoses / Procedures Referred By Ashtyn t Referred To Contact Cardiology Diagnoses Persistent atrial fibrillation (CMS/HCC) 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) Chronic diastolic heart failure (CMS/HCC) Procedures Follow Up In Cardiology Debbie Mac MD [address] [facility], [address] [place] [address] Debbie Mac MD [address] [facility], [address] [place] [address] Referral ID Status Reason Start Date Expiration Date V isits Requested Visits Authorized [id number] Authorized 09/19/2023 09/18/2024 1 1 [facility] Work Phone: Reason for referral (narrative)* Tests/Procedures (Routine) - Authorized Specialty Diagnoses / Procedures Referred By Ashtyn dobson Referred To Contact Gastroenterology Diagnoses Esophageal dysphagia Katie Yung MD [address] [place] [address] [facility] [address] [place] [address] Referral ID Status Reason Start Date Expiration Date Visits Requested Visits Authorized [id number] Authorized Consultatio n-[facility] 05/15/2024 05/15/2025 1 1 Scheduling Instructions [facility] Division of Gastroenterology [address] [place] [address] ESOPHAGEAL MANOMETRY WHAT IS ESOPHAGEAL MANOMETRY? Esophageal [...] may eat once you get home. LOCATION: [facility] Suite located at [address] [place] [address]. - Plan to arrive at least 60 minutes before your scheduled procedure. Please also plan extra time for parking and shuttle service. - Bring your photo ID, insurance card, and medication insurance card. - Parking is available in the [facility] accessible from [facility]. - 12/03 shuttle service from the garage to [facility] is available. - Go to the ground floor of the parking garage to reach the shuttle pick-up station located near the elevator and stairs. - Shuttle service will drop you off at [facility] Main Entrance. - Entry Specialist service is available at [facility] Main Entrance if you would prefer delivery and installation subcontractor over parking ([facility] Entry Specialist Service Hours: Sunday-Sunday, 5:30am- 8:00pm). - Enter [facility] Main Entrance and go to the Admitting/Registration Desk to check in for your procedure. - The Endoscopy department is located on the 1st floor of [facility]. Please call [phone] Sunday-Sunday, 7:00am-6:00pm if you have any pre- procedural questions. If you are calling AFTER HOURS, please call [phone] to speak to the [facility] Nurse electronic pagination system operator. If you need to cancel this appointment prior to the scheduled date, please call the Endoscopy call center at [phone] at least 48 hours before the appointment/procedure time. Test Date: Test Time: We make every attempt to maintain our schedule, however, it is not always possible. Some procedures may take longer than others and our cases are scheduled to follow one another. We apologize for any delays. For any questions before your appointment, please call [phone] or [phone]. To cancel or change your appointment please call the Gastroenterology scheduling line at [phone]. [facility] ([facility] Consultation (Routine) - Authorized Specialty Diagnoses / Procedures Referred By Contac t Referred To Contact Cardiology Diagnoses High risk medication use Pacemaker Anticoagulation management encounter Longstanding persistent atrial fibrillation (Multi) Sinus bradycardia BMI 28.0-28.9,adult Never smoked any substance Procedures Follow Up In Cardiology Maxwell Medrano MD [address] [place] [address] Referral ID Status Reason Start Date Expiration Date V isits Requested Visits Authorized [id number] Authorized 04/17/2024 04/17/2025 1 1 * Consultation (Routine) - Authorized Specialty Diagnoses / Procedures Referred By Contac t Referred To Contact Cardiology Diagnoses High risk medication use Pacemaker Anticoagulation management encounter Longstanding persistent atrial fibrillation (Multi) Sinus bradycardia BMI 28.0-28.9,adult Never smoked any substance Procedures Follow Up In Cardiology Maxwell Medrano MD [address] [place] [address] Referral ID Status Reason Start Date Expiration Date V isits Requested Visits Authorized [id number] Authorized 04/17/2024 04/17/2025 1 1 * Cardiovascular (Routine) - Authorized Specialty Diagnoses / Procedures Referred By Contac t Referred To Contact Diagnoses High risk medication use Procedures ECG 12 lead (Clinic Performed) Maxwell Medrano MD [address] [place] [address] Referral ID Status Reason Start Date Expiration Date V isits Requested Visits Authorized [id number] Authorized 04/17/2024 04/17/2025 1 1 [facility] Work Phone: Reason for referral (narrative)* [...] In Cardiology Maxwell Medrano MD [address] [address] Referral ID Status Reason Start Date Expiration Date V isits Requested Visits Authorized [id number] Authorized 04/28/2024 04/28/2025 1 1 [facility] Work Phone: Reason for referral (narrative)No reason for referral [facility]: Reason for visit Narrative* Diagnostic X-Ray (Routine) - Closed Specialty Diagnoses / Procedures Referred By Ashtyn dobson Referred To Contact Radiology Diagnoses Esophageal dysphagia Procedures FL BARIUM SWALLOW DOUBLE CNTRST FL BARIUM SWALLOW SINGL CNTRST Katie Yung MD [address] [place] [address] Phone: tel: fax: [facility] [address] [place] [address] Phone: tel: Referral ID Status Reason Start Date Expiration Date Visits Re quested Visits Authorized [id number] Closed 06/19/2024 06/19/2025 1 [facility] ([facility]ine[facility] - Pending Review Specialty Diagnoses / Procedures Referred By Ashtyn dobson Referred To Contact Cardiology Diagnoses Pacemaker Sick sinus syndrome (Multi) Procedures Cardiac Device Check - Remote Maxwell Medrano MD [address] [address] Phone: tel: fax: Referral ID Status Reason Start Date Expiration Date Visits Requested Visits Authorized [id number] Pending Review Perform Procedure 09/08/2024 09/08/2025 52 52 [facility] Work Phone: reason for visit Narrative* Imaging (Routine) - Pending Review Specialty Diagnoses / Procedures Referred By Awaac t Referred To Contact Cardiology Diagnoses Pacemaker Procedures Cardiac Device Check - Remote Maxwell Medrano MD [address] [address] Phone: tel: fax: Referral ID Status Reason Start Date Expiration Date Visits Requested Visits Authorized [id number] Pending Review Perform Procedure 10/23/2024 10/23/2025 52 52 [facility] Work Phone: reason for visit Narrative* Imaging (Routine) - Authorized Specialty Diagnoses / Procedures Referred By Ashtyn t Referred To Contact Radiology Diagnoses Persistent atrial fibrillation (Multi) Procedures CT angio chest pre pulmonary vein ablation planning gated CT heart structure morphology congenital heart disease w IV contrast Maxwell Medrano MD [address] [address] Phone: tel: fax: Referral ID Status Reason Start Date Expiration Date Visits Requested Visits Authorized [id number] Authorized Perform Procedure 10/23/2024 10/23/2025 1 1 [facility] Work Phone: reason for visit Narrative* Imaging (Routine) - Pending Review Specialty Diagnoses / Procedures Referred By Ashtyn t Referred To Contact Cardiology Diagnoses Pacemaker Sick sinus syndrome (Multi) Procedures Cardiac Device Check - Remote Maxwell Medrano MD [address] [address] Phone: tel: fax: Referral ID Status Reason Start Date Expiration Date Visits Requested Visits Authorized [id number] Pending Review Perform Procedure 05/19/2025 05/19/2026 52 52 [facility] Work Phone: reason for visit Narrative* Auth/Cert Specialty Diagnoses / Procedures Referred By Ashtyn t Referred To Contact Diagnoses Persistent atrial fibrillation (Multi) Procedures PA COMPRE EP EVAL ABLTJ ATR FIB PULM VEIN ISOLATION Ablation A-Fib Maxwell Medrano MD [address] [address] Phone: tel: fax: [place] [address] [place] [address] Phone: tel: fax: Referral ID Status Reason Start Date Expiration Date Visits Re quested Visits Authorized [id number] 1 1 [facility] Work Phone: Summary Purpose Family History [...] 2024 3:33pm Hospital Course Note MR#: [id number] [facility] Pt. Name: Austin Golden Admitted: 07/26/2020 [...] Mac MD to review [facility] for pft ast tsh onlyAUSTIN GOLDEN is [...] was in afib. EKG was reviewed by Amarjit Davidson RN prior to discharge. To Dr. Debbie Mac MD for review.* Patient here today for EKG for AFib. [place] [facility] and was [...] GOLDEN is being seen for cath follow up.ASUTIN GOLDEN is being seen for cath follow [...] hospital follow up R11.2 Amb Documentation [facility], Conversion/ 4 month f/u Reason for Visit [...] hospital follow up R11.2 Amb Documentation [facility], Conversion/ 4 month f/u trouble vomiting Reason [...] hospital follow up R11.2 Amb Documentation [facility], Conversion/ 4 month f/u trouble vomiting z79.899 [...] hospital follow up R11.2 Amb Documentation [facility], Conversion/ 4 month f/u trouble vomiting [id number] [...] disease) Vomiting Chief Complaint Amb Documentation [facility], Conversion/ 4 month f/u trouble vomiting [id number] [...] reflux disease) Chief Complaint Amb Documentation [facility], Conversion/ 4 month f/u trouble vomiting z79.899 [...] kidney disease Chief Complaint Admit Date [facility], Conversion/ 4 month f/u Augus t 2023 [...] disease [facility] r 2023 11:45am Dyspepsia May 19, 2024 [...] 2024 5:45pm Chief Complaint Admit Date [facility], Conversion/ 4 month f/u Augus t 2023 [...] 2024 11:45am GERD (gastroesophageal reflux disease) [facility] 2023 11:45am Paroxysmal atrial fibrillation May [...] 08 11:45am [facility] 11:45[facility] Dyspepsia May 19, 2024 [...] N Stemi July 23, 2024 1 2:56pm [facility] [place] up-HIGH RISK July 31, 2024 11:23am Fall on 08/22:Hurt R Side-HIGH RISK Petrona argueta 2024 2:04pm Reason for Visit Admit Date [...] N Stemi July 23, 2024 1 2:56pm [facility] [place] up-HIGH RISK July [...] July 31 11:23am Abrasion of elbow, left Oly 8th, 202 5 2:04pm Abrasion of knee, left, infected August [...] N Stemi July 23, 2024 1 2:56pm [facility] [place] up-HIGH RISK July [...] N Stemi July 23, 2024 1 2:56pm [facility] [place] up-HIGH RISK July [...] N Stemi July 23, 2024 1 2:56pm [facility] [place] up-HIGH RISK July [...] N Stemi July 23, 2024 1 2:56pm [facility] [place] up-HIGH RISK July [...] 2024 3:04pm ASHD (arteriosclerotic heart disease) [facility] 2024 3:04pm Atrial fibrillation September 09, 2024 [...] 222024 10:45pm ASHD (arteriosclerotic heart disease) Ju ne 2024 10:45pm Atrial fibrillation with rapid [...] 2 025 11:58am Hypercholesterolemia May 18 11:58am Chief Complaint Admit Date Unknown May 04, 2025 8:35am Amb Documentation May 05, 2025 10:07am [facility] May 18, 2025 11:58am right eye swelling May 27, 2025 11 :47am Reason for Visit Admit Date Acute hypoxic respiratory failure Septem 2024 11:58am Acute on chronic heart failu re with preserved ejection fraction (HFpEF) May 18, 2025 11:58am Chronic kidney disease May 18, 2 025 11:58am 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 May 18, 2025 11:58am Primary hypertension May 18 11:58am Paroxysmal atrial fibrillation May 18, 2025 11:58am ASHD (arteriosclerotic heart disease) Se ptember 2024 11:58am Hypercholesterolemia May 18 11:58am Reason for Referral Specialty Diagnoses / Procedures Referred By Ashtyn dobson Referred To Contact Diagnoses Atrial flutter, unspecified type (Multi) Procedures ECG 12 Lead Debbie Mac MD [address] [place] [address] 2, [address] [address] Referral ID Status Reason Start Date Expiration Date V isits Requested Visits Authorized [id number] Authorized 04/24/2024 04/24/2025 1 1 Specialty Diagnoses / Procedures Referred By Ashtyn dobson Referred To Contact Cardiology Diagnoses Atrial flutter, unspecified type (Multi) Procedures Follow Up In Cardiology Debbie Mac MD 703 [facility] 2, [address] [address] Debbie Mac MD [address] [place] [address] 2, [address] [address] Referral ID Status Reason Start Date Expiration Date V isits Requested Visits Authorized [id number] Authorized 04/24/2024 04/24/2025 1 1 Specialty Diagnoses / Procedures Referred By Contac t Referred To Contact Diagnoses High risk medication use Procedures ECG 12 Lead Maxwell Medrano MD [address] [address] Referral ID Status Reason Start Date Expiration Date V isits Requested Visits Authorized [id number] Authorized 02/28/2024 02/27/2025 1 1 Specialty Diagnoses / Procedures Referred By Contac t Referred To Contact Cardiology Diagnoses High risk medication use Diastolic heart failure, unspecified HF chronicity (Multi) Abnormal EKG Anticoagulation management encounter Longstanding persistent atrial fibrillation (Multi) Sinus bradycardia Pacemaker BMI 30.0-30.9,adult Never smoked tobacco Procedures Follow Up In Cardiology Maxwell Medrano MD [address] [address] Referral ID Status Reason Start Date Expiration Date V isits Requested Visits Authorized [id number] Authorized 02/28/2024 02/27/2025 1 1 Specialty Diagnoses / Procedures Referred By Contac t Referred To Contact Anesthesiology Diagnoses Esophageal dysphagia Katie Yung MD [address] [place] [address] MH PRE ADMISSION TESTING [address] [place] [address] Referral ID Status Reason Start Date Expiration Date V isits Requested Visits Authorized [id number] Authorized 05/15/2024 05/15/2025 1 1 Scheduling Instructions Your surgical team will reach out to you to schedule a pre-admission testing appointment. Question Answer Reason for consult? Recommended PAT Risk Score Specialty Diagnoses / Procedures Referred By Contac t Referred To Contact Cardiology Diagnoses Chronic diastolic heart failure (CMS/HCC) Essential hypertension, benign Dyspnea, unspecified type Procedures Transthoracic Echo (TTE) Complete PA ECHO TRANSTHORC R-T 2D W/WO M-MODE REC F-UP/LMTD PA DOP ECHOCARD COLOR FLOW VELOCITY MAPPING PA DOP ECHOCARD PULSE WAVE W/SPECTRAL F-UP/LMTD STD Traboulssi, Mourhaf, MD 703 [facility] 2, [address] [address] [address] [address] Referral ID Status Reason Start Date Expiration Date Visits Requested Visits Authorized [id number] Pending Review Perform Procedure 11/27/2023 1 1 Specialty Diagnoses / Procedures Referred By Contac t Referred To Contact Cardiology Diagnoses Persistent atrial fibrillation (CMS/HCC) 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) Chronic diastolic heart failure (CMS/HCC) Essential hypertension, benign Procedures Follow Up In Cardiology Debbie Mac MD 703 [facility] 2, [address] [address] Referral ID Status Reason Start Date Expiration Date V isits Requested Visits Authorized [id number] Authorized 05/31/2023 11/27/2023 1 1 Specialty Diagnoses / Procedures Referred By Contac t Referred To Contact Diagnoses Persistent atrial fibrillation (CMS/HCC) 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) Procedures ECG 12 Lead Debbie Mac MD 703 [facility] 2, [address] [address] Referral ID Status Reason Start Date Expiration Date V isits Requested Visits Authorized [id number] Pending Review 05/31/2023 11/27/2023 1 1 Additional Source Comments INFORMATION SOURCE (unrecogn ized section and content) DATE CREATED AUTHOR 08/08/2020 [facility] DATE CREATED AUTHOR AUTHOR'S ORGANIZ ATION 10/10/2021 [facility] DATE CREATED AUTHOR AUTHOR'S ORGANIZ ATION 12/28/2022 [facility] DATE CREATED AUTHOR AUTHOR'S ORGANIZ ATION 01/04/2023 [facility] DATE CREATED AUTHOR AUTHOR'S ORGANIZ ATION 01/30/2023 [employer] DATE CREATED AUTHOR AUTHOR'S ORGANIZ ATION 03/23/2024 [facility] DATE CREATED AUTHOR AUTHOR'S ORGANIZ ATION 03/31/2024 [facility] DATE CREATED AUTHOR AUTHOR'S ORGANIZ ATION 10/16/2024 [facility] DATE CREATED AUTHOR AUTHOR'S ORGANIZ ATION 01/06/[address] [facility] DATE CREATED AUTHOR AUTHOR'S ORGANIZ ATION 04/30/2025 [facility] DATE CREATED AUTHOR AUTHOR'S ORGANIZ ATION 05/07/2025 [facility] DATE CREATED AUTHOR AUTHOR'S ORGANIZ ATION 05/09/2025 [facility] DATE CREATED AUTHOR AUTHOR'S ORGANIZ ATION 05/24/2025 [facility] DATE CREATED AUTHOR AUTHOR'S ORGANIZ ATION 05/29/2025 [facility] Legal Examiner Teams (unrecognized sec tion and content) Team [...] Status: Inactive Member Role Status Dates Jazmin Ball , DO Primary Care Provide r, [...] Team Status: Inactive Member Role Status Dates Jamzin العلي DO Primary Care Provide r, Attending [...] Roberto العلي DO Primary Care Provider Active Debbie Mac MD Attending Provider Active Team Status: Inactive Member Role Status Roberto العلي DO Primary Care Provider Active John Mims MD Attending Provider Active Team Status: Active Member Role Status Roberto العلي DO Primary Care Provider Active Debbie [...] MD Other Provider Active Dee Quach , [employer] Other Provider Active Bety Haile MD Other Provider Active Anoop Zhang MD Other Provider Active Isra Pedro MD Other Provider Active Cristiana Chapa , [facility] Other Provider Active Yessy Ackerman MD Other Provider Active Katie Dukes DO Attending Provider Active Team Status: Inactive Member Role Status Jazmin العلي , DO Primary Care Provider, Attending Pr ovider Active Team Status: Inactive Member Role Status Jazmin العلي , DO Primary Care Provider Active Wilbur Watson DO Attending Provider Active Silk Screen Etcher Relationship Specialty Start Date End Date Jazmin العلي DO [address] [facility] [place] [address] PCP - General 08/20/99 Silk Screen Etcher Relationship Specialty Start Date End Date Jazmin العلي [address] [place] [address] PCP - General Internal Medicine 08/09/23 Silk Screen Etcher Relationship Specialty Start Date End Date Jazmin العلي DO [facility] [place] [address] PCP - General Internal Medicine 08/09/23 Team [...] Attending Provider Active Start: 2023 End: 2023 Silk Screen Etcher Relationship Specialty Start Date End Date Jazmin العلي [address] [place] [address] [place] [address] PCP - General Internal Medicine 08/09/23 Debbie Mac MD [address] [place] [address] Consulting Physician Cardiology 09/10/23 Team Status: Inactive [...] Active Start: M ay 2023 Cristiana Chapa [facility] Other Provider Active Sta rt: [...] January 18, 2024 End: January 20, 2024 W Kwasi Luiz , DO Other Provider Active Start : January [...] 2023 End: January 20, 2024 Cristiana Chapa [facility] Other Provider Active Sta rt: January 18, 2024 End: January 20, 2024 Silk Screen Etcher Relationship Specialty Start Date End Date Jazmin العلي DO [address] [place] [address] PCP - General Internal Medicine 08/09/23 Debbie Mac MD [facility], [address] [place] [address] Consulting Physician Cardiology 09/10/23 Team Status: Active [...] Attending Provider Active Start: February 07, 2024 Silk Screen Etcher Relationship Specialty Start Date End Date Jazmin العلي DO [address] [place] [address] PCP - General Internal Medicine 08/09/23 Debbie Mac MD 703 [facility] 2, [address] [place] [address] Consulting Physician Cardiology 09/10/23 Maxwell Medrano MD 917 [facility] [address] [place] [address] Consulting Physician Cardiology 02/13/24 Team Status: Inactive Member Role Status Dates Jazmin العلي DO Primary Care Provider Active Start: June 30, 2024 End: July 03, 2024 iVc Mendez PA-C Emergency Provider Active Start: June [...] Provider Active Start: N 2023 Cristiana Chapa [facility] Other Provider Active Sta rt: July [...] Other Provider Active Start: 2023 Cristiana Chapa [facility] Other Provider Active Sta rt: July [...] July 09, 2024 End: July 09, 2024 Silk Screen Etcher Relationship Specialty Start Date End Date Jazmin العلي DO [address] [place] [address] PCP - General Internal Medicine 08/09/23 Debbie Mac MD 703 [facility] 2, [address] [place] [address] Consulting Physician Cardiology 09/10/23 Maxwell Medrano MD 917 [facility] [address] [place] [address] Consulting Physician Cardiology 02/13/24 Silk Screen Etcher Relationship Specialty Start Date End Date Katie Yung MD [address] [place] [address] [place] [address] Physician Gastroenterology 07/26/24 Silk Screen Etcher Relationship Specialty Start Date End Date Jazmin العلي DO [address] [place] [place] [address] PCP - General Internal Medicine 08/09/23 Debbie Mac MD 703 [facility] 2, [facility] [address] [place] [address] Consulting Physician Cardiology 09/10/23 Maxwell Medrano MD [address] [place] [address] [address] [place] [address] Consulting Physician Cardiology 02/13/24 Silk Screen Etcher Relationship Specialty Start Date End Date Jazmin العلي DO [address] [place] [address] PCP - General Internal Medicine 08/09/23 Debbie Mac MD 703 [facility] 2, [address] [place] [address] Consulting Physician Cardiology 09/10/23 Maxwell Medrano MD [address] [place] [address] Consulting Physician Cardiology 02/13/24 Silk Screen Etcher Relationship Specialty Start Date End Date Jazmin العلي DO [address] [place] [address] PCP - General Internal Medicine 08/09/23 Debbie Mac MD [address] [place] [address] 2, [address] [address] Consulting Physician Cardiology 09/10/23 Maxwell Medrano MD [address] [place] [address], [place] [address] Consulting Physician Cardiology 02/13/24 Sasha Sepulveda, rodbusterSprayer Operator 03/28/24 Silk Screen Etcher Relationship Specialty Start Date End Date Jazmin العلي DO [address] [place] [address] PCP - General Internal Medicine 08/09/23 Debbie Mac MD 703 [facility] 2, [facility] [address] [place] [address] Consulting Physician Cardiology 09/10/23 Maxwell Medrano MD [address] [place] [address] Consulting Physician Cardiology 02/13/24 Sasha Sepulveda, rodbusterSprayer Operator 03/28/24 Silk Screen Etcher Relationship Specialty Start Date End Date Jazmin العلي DO [address] [place] [address] PCP - General Internal Medicine 08/09/23 Debbie Mac MD 703 [facility] 2, [address] [place] [address] Consulting Physician Cardiology 09/10/23 Maxwell Medrano MD [address] [place] [address] [address] [place] [address] Consulting Physician Cardiology 02/13/24 Sasha Sepulveda, rodbusterSprayer Operator 03/28/24 04/28/24 Silk Screen Etcher Relationship Specialty Start Date End Date Katie Yung MD [address] [place] [address] [place] [address] Physician Gastroenterology 07/26/24 Team Status: Active Member Role Status Dates Jazmin العلي DO Primary Care Provider Active Start: July 21, 2024 Juanito Barragan , DO Attending Provider Active S tart: July 21, 2024 Team Status: Inactive Member Role Status Dates Jazmin العلي DO Primary Care Provider Active Start: July 21, 2024 End: July 24, 2024 Aroldo Peña MD Admit Provider Active S tart: July 21, 2024 End: July 24, 2024 Fahad Kim , Attending Provider Active St art: July 21, [...] Active Start: 2023 End: July 24, 2024 NAY Whitman-ABI Other Provider Active Sta rt: July 21, [...] MD Other Provider Active Start: 2023 NAY Whitman- Other Provider Active Sta rt: July 23, [...] August 27, 2024 End: August 27, 2024 Silk Screen Etcher Relationship Specialty Start Date End Date Jazmin العلي DO [address] [place] [address] PCP - General Internal Medicine 08/09/23 Debbie Mac MD [address] [place] [address], [address] [address] Consulting Physician Cardiology 09/10/23 Maxwell Medrano MD [address] [place] [address] Consulting Physician Cardiology 02/13/24 Team Status: Inactive Member Role Status Dates Jazmin العلي DO Primary Care Provider Active Start: September 05, 2024 End: September 05, 2024 Yesica Astudillo MD Attending Provider Active Start: September 05, 2024 End: September 05, 2024 Silk Screen Etcher Relationship Specialty Start Date End Date Jazmin العلي DO [address] [place] [address] PCP - General Internal Medicine 08/09/23 Debbie Mac MD [address] [place] [address], [address] [address] Consulting Physician Cardiology 09/10/23 Maxwell Medrano MD [address] [place] [address] Consulting Physician Cardiology 02/13/24 Team Status: Inactive [...] October 06, 2024 End: October 06, 2024 Silk Screen Etcher Relationship Specialty Start Date End Date Katie Yung MD [address] [address] Physician Gastroenterology 07/26/24 Silk Screen Etcher Relationship Specialty Start Date End Date Katie Yung MD [address] [address] Physician Gastroenterology 07/26/24 Silk Screen Etcher Relationship Specialty Start Date End Date Katie Yung MD [address] [place] [address] Physician Gastroenterology 07/26/24 Silk Screen Etcher Relationship Specialty Start Date End Date Katie Yung MD [address] [place] [address] Physician Gastroenterology 07/26/24 Silk Screen Etcher Relationship Specialty Start Date End Date Katie Yung MD [address] [place] [address] Physician Gastroenterology 07/26/24 Team Status: Inactive Member [...] January 22, 2025 End: January 23, 2025 Silk Screen Etcher Relationship Specialty Start Date End Date Jazmin العلي DO [facility] [place] [address] PCP - General Internal Medicine 08/09/23 Debbie Mac MD 703 [facility] 2, [address] [place] [address] Consulting Physician Cardiology 09/10/23 Maxwell Medrano MD 917 [facility] [address] [place] [address] Consulting Physician Cardiology 02/13/24 Silk Screen Etcher Relationship Specialty Start Date End Date Jazmin العلي DO [address] [place] [facility] [place] [address] PCP - General Internal Medicine 02/14/23 Silk Screen Etcher Relationship Specialty Start Date End Date Jazmin العلي DO [address] [place] [address] PCP - General Internal Medicine 02/14/23 Silk Screen Etcher Relationship Specialty Start Date End Date Jazmin العلي DO [address] [place] [facility] [place] [address] PCP - General Internal Medicine 02/14/23 Silk Screen Etcher Relationship Specialty Start Date End Date Jazmin العلي DO [address] [place] [address] PCP - General Internal Medicine 02/14/23 Silk Screen Etcher Relationship Specialty Start Date End Date Jazmin العلي DO [address] [place] [address] PCP - General Internal Medicine 08/09/23 Debbie Mac MD [address] [place] [address] 2[facility] [address] [place] [address] Consulting Physician Cardiology 09/10/23 Maxwell Medrano MD [address] [place] [id number] [address] [place] [address] Consulting Physician Cardiology 02/13/24 Silk Screen Etcher Relationship Specialty Start Date End Date Jazmin العلي DO [address] [place] [address] PCP - General Internal Medicine 02/14/23 Silk Screen Etcher Relationship Specialty Start Date End Date Jazmin العلي DO [address] [place] [address] PCP - General Internal Medicine 02/14/23 Team [...] May 18, 2025 End: May 18, 2025 Silk Screen Etcher Relationship Specialty Start Date End Date Jazmin العلي DO [address] [place] [address] PCP - General Internal Medicine 08/09/23 Debbie Mac MD [address] [place] [id number] Consulting Physician Cardiology 09/10/23 Maxwell Medrano MD [address] [place] [address] [address] [place] [address] Consulting Physician Cardiology 02/13/24 Silk Screen Etcher Relationship Specialty Start Date End Date Jazmin العلي DO [address] [place] [address] PCP - General Internal Medicine 08/09/23 Debbie Mac MD [address] [place] [address] 2, [facility] [address] [place] [address] Consulting Physician Cardiology 09/10/23 Maxwell Medrano MD [address] [place] [id number] Consulting Physician Cardiology 02/13/24 Team Status: Active Member Role Status Dates Jazmin العلي DO Primary Care Provider Active Start: May 22, 2025 Jazmin العلي DO Attending Provider Active Sta rt: May 22, 2025 Team Status: Inactive Member Role Status Dates Jazmin العلي DO Primary Care Provider Active Start: May 27, 2025 End: May 27, 2025 Rachel Larios MD Attending Provider Active St art: May 27, 2025 End: May 27, 2025 Silk Screen Etcher Relationship Specialty Start Date End Date Jazmin العلي DO [address] [place] [address] PCP - General Internal Medicine 08/09/23 Debbie Mac MD [address] [place] [address] [address], [address] [address] Consulting Physician Cardiology 09/10/23 Maxwell Medrano MD [address] [place] [id number] Consulting Physician Cardiology 02/13/24 Goals (unrecognized section [...] Procedures ECG 12 Lead Debbie Mac MD [address] [place] [address], [address] [address] Referral ID Status Reason Start Date Expiration Date V isits Requested Visits Authorized [id number] Pending Review 05/31/2023 11/27/2023 1 1 Specialty Diagnoses / Procedures Referred By Ashtyn dobson Referred To Contact Cardiology Diagnoses Chronic diastolic heart failure (CMS/HCC) Essential hypertension, benign Dyspnea, unspecified type Procedures Transthoracic Echo (TTE) Complete PA ECHO TRANSTHORC R-T 2D W/WO M-MODE REC F-UP/LMTD PA DOP ECHOCARD COLOR FLOW VELOCITY MAPPING PA DOP ECHOCARD PULSE WAVE W/SPECTRAL F-UP/LMTD STD Debbie Mac MD [address] [place] [address] 2, [address] [place] [phone] Referral ID Status Reason Start Date Expiration Date Visits Requested Visits Authorized [id number] Authorized Perform Procedure 11/27/2023 1 1 Reason Comments Follow-up 4 month Specialty Diagnoses / Procedures Referred By Ashtyn dobson Referred To Contact Cardiology Diagnoses Persistent atrial fibrillation (CMS/HCC) 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) Chronic diastolic heart failure (CMS/HCC) Essential hypertension, benign Procedures Follow Up In Cardiology Debbie Mac MD [address] [facility] 2, Eduardo [address] [place] [id number] Referral ID Status Reason Start Date Expiration Date V isits Requested Visits Authorized [id number] Authorized 05/31/2023 11/27/2023 1 1 Reason Comments ekg visit Specialty Diagnoses / Procedures Referred By Contac t Referred To Contact Diagnoses Dyspnea, unspecified type Persistent atrial fibrillation (Multi) Procedures ECG 12 Lead Debbie Mac MD [address] [facility] 2, [address] [place] [address] Referral ID Status Reason Start Date Expiration Date V isits Requested Visits Authorized [id number] Authorized 01/17/2024 01/16/2025 1 1 Reason Comments [...] Follow Up In Cardiology Maxwell Medrano MD [address] [address] Phone: tel: fax: Referral ID Status Reason Start Date Expiration Date V isits Requested Visits Authorized [id number] Authorized 04/28/2024 04/28/2025 1 1 Reason Onset [...] In Cardiology Cristiana Chapa APRN-NORAH [address] [address] Phone: tel: fax: Maxwell Medrano MD [address] [address] Phone: tel: fax: Referral ID Status Reason Start Date Expiration Date V isits Requested Visits Authorized [id number] Authorized 07/07/2024 07/07/2025 1 1 Reason Onset Date Comments Update 07/21/2024 Reason Onset Date Comments No Show 07/29/2024 Reason Comments Hospital Follow-up [facility] discharge 02/07-afib Specialty Diagnoses / Procedures Referred By Contac t Referred To Contact Diagnoses Persistent atrial fibrillation (Multi) Procedures ECG 12 Lead Debbie Mac MD [address] [place] [address] 2, [address] [address] Referral ID Status Reason Start Date Expiration Date V isits Requested Visits Authorized [id number] Authorized 02/25/2024 02/24/2025 1 1 Reason Comments Follow-up Specialty Diagnoses / Procedures Referred By Contac t Referred To Contact Diagnoses High risk medication use Procedures ECG 12 Lead Maxwell Medrano MD [address] [address] Referral ID Status Reason Start Date Expiration Date V isits Requested Visits Authorized [id number] Authorized 02/28/2024 02/27/2025 1 1 Reason Comments Hospital Follow-up [facility] 03/25/24 Specialty Diagnoses / Procedures Referred By Contac t Referred To Contact Diagnoses High risk medication use Procedures ECG 12 lead (Clinic Performed) Maxwell Medrano MD [address] [address] Referral ID Status Reason Start Date Expiration Date V isits Requested Visits Authorized [id number] Authorized 04/17/2024 04/17/2025 1 1 Reason Comments Follow-up 4 months Specialty Diagnoses / Procedures Referred By Contac t Referred To Contact Cardiology Diagnoses Essential hypertension, benign Procedures Follow Up In Cardiology Debbie Mac MD [address] [facility] 2, [address] [address] Debbie Mac MD [address] [facility] 2, [address] [address] Referral ID Status Reason Start Date Expiration Date V isits Requested Visits Authorized [id number] Authorized 11/28/2023 11/27/2024 1 1 Reason Comments Follow-up 2 WEEK Reason Comments Swallowing problems Reason Comments Follow-up [facility] Specialty Diagnoses / Procedures Referred By Contac t Referred To Contact Diagnoses Persistent atrial fibrillation (Multi) Procedures ECG 12 Lead Debbie Mac MD [address] [facility] 2, [address] [address] Phone: tel: fax: Referral ID Status Reason Start Date Expiration Date V isits Requested Visits Authorized [id number] Authorized 09/05/2024 09/05/2025 1 1 Reason Comments [...] (Multi) Procedures ECG 12 Lead Cristiana Chapa, COUNTER POCKET SEWER-CONTINUOUS STILL OPERATOR [address] [facility] [address] [place] [address] Phone: tel: fax: Referral ID Status Reason Start Date Expiration Date V isits Requested Visits Authorized [id number] Authorized 02/23/2025 02/23/2026 1 1 Reason Onset Date Comments Food getting stuck in throat 11/11/2024 Swallowing problems 11/11/2024 Reason Comments Toenail Care Reason Comments Follow-up Cellulitis check Reason Comments Follow-up 9 month Diastolic he art failure (Multi) Specialty Diagnoses / Procedures Referred By Contac t Referred To Contact Cardiology Diagnoses Single vessel coronary artery disease Procedures Follow Up In Cardiology Debbie Mac MD [address] [facility] 2, [address] [address] Phone: tel: fax: Debbie Mac MD [address] [facility] 2, [address] [address] Phone: tel: fax: Referral ID Status Reason Start Date Expiration Date V isits Requested Visits Authorized [id number] Authorized 09/05/2024 09/05/2025 1 1 Continuous Active and Recently Administ ered Medications [...] medication administration and blood draw, PACU Now Scheduled Medication Order 05/26/2025 05/27/2025 05/28/2025 chlorhexidine (Hibiclens) 4 % liquid (COMPLETED) Topical, Once, On Tracie 05/28/25 at 0800, For 1 dose, Preprocedure, For pre-op skin preparation 0816 (Given - Provid er: Kati Henry RN) Continuous Medication Order 05/26/2025 05/27/2025 05/28/2025 sodium chloride 0.9% infusion 10 mL/hr, intravenous, Continuous, Starting on Tracie 05/28/25 at 0800, For 8 hours, Preprocedure 0816 (New Bag - Prov ider: Kati Henry RN)1615 (Due: Order Ending - Provider: Kati Henry RN - Comment: [Order ends at this time. Document the following action when infusion is complete: Stopped]) FOR RECORDS PERTAINING TO PATIENTS WHO ARE [...] BE BASED ON THE PRIMARY CLINICAL RECORDS. [email or web address] provides no warranty or guarantee of the accuracy or completeness of information in this document.
[2025-05-29] MEDS: PREDNISONE 20 MG TABLET 40 MG PO (21:05)
[2025-05-29 21:07] LABS: Hematocrit 39.7 % (36.0-48.0); Hemoglobin 12.7 g/dL (12.0-16.0); Mean Corpuscular HGB Conc 32.0 g/dL (29.9-35.2); Mean Corpuscular Hemoglobin 29.4 pg (26.7-34.0); Mean Corpuscular Volume 91.9 fL (81.0-99.0); Platelet Count 232 10^3/uL (150-450); Red Blood Count 4.32 10^6/uL (4.20-5.40); White Blood Count 13.9 10^3/uL (4.0-11.0)
[2025-05-29] MEDS: IPRATROPIUM/ALBUTEROL SULFATE 3 ML AMPUL.NEB 6 ML IH (21:15)
[2025-05-29 21:20] LABS: Anion Gap 15.0; Blood Urea Nitrogen 22.0 mg/dL (7.0-18.0); Calcium 8.9 mg/dL (8.5-10.1); Carbon Dioxide 23.4 mmol/L (21.0-32.0); Chloride 105 mmol/L (98-107); Estimated GFR (African America 54 (>=60 mL/min/1.73m^2); Estimated GFR (Non-African Ame 44 (>=60 mL/min/1.73m^2); Glucose 131 mg/dL (74-106); Potassium 4.4 mmol/L (3.5-5.1); Sodium 139 mmol/L (136-145)
[2025-05-29 21:59] LABS: NT Pro B Type Natriuretic Pept 8498.0 pg/mL (<=1800.0)
[2025-05-29] MEDS: FUROSEMIDE 40 MG/4 ML VIAL IVP (22:34)
[2025-05-30] VITALS (10 sets, daily range): BP systolic 89–112; BP diastolic 49–58; PULSE 90–103; O2SAT 90–97
[2025-05-30] MEDS: ROPINIROLE HCL 1 MG TABLET PO (00:49)
== END 2025-05-30 01:41 | disposition short-term general hospital (02) ==
PROVIDERS: Emergency Provider Student in an Organized Health Care Education/Training Program; PCP Internal Medicine
DX: I50.9 Heart failure, unspecified (principal); I48.0 Paroxysmal atrial fibrillation; N18.9 Chronic kidney disease, unspecified; I25.2 Old myocardial infarction; Z95.0 Presence of cardiac pacemaker; Z91.81 History of falling; Z79.01 Long term (current) use of anticoagulants; R50.9 Fever, unspecified
CPT/HCPCS: 36415; 71046; 80048; 83880; 84484; 85027; 93005; 94640; 94660; 96374; 99285; J1938; J7512